=== PATIENT | male | born 1950 | race Caucasian/White ===

== ENCOUNTER 2017-03-10 18:32 | Inpatient (IN) | payer MEDICARE, OTHER, SELFPAY ==
[2017-03-10] VITALS (17 sets, daily range): BP systolic 141–169; BP diastolic 70–89; PULSE 60–61; RESP 14–22; TEMP 36.4–37.1; O2SAT 93–98; BMI 37.6; BMI 36.6
[2017-03-10 18:41] LABS: Bedside Glucose 262 mg/dL (70-110)
--- NOTE | 2017-03-10 18:54 | RAD_ITS ---
STUDY: X-RAY CHEST REASON FOR EXAM: Male, 66 years old. Stroke TECHNIQUE: Single frontal view COMPARISON: February 22, 2017 FINDINGS: Stable sternotomy wires and left-sided pacemaker. The lungs are clear and expanded. There is no demonstrated pleural abnormality. Cardiomegaly. Normal mediastinum and cata. Stable slight prominence of the central pulmonary arteries. Normal visualized aortic arch and descending thoracic aorta. Degenerative changes of the thoracic spine. Mild degenerative changes of the shoulders. There is no demonstrated abnormality of the visualized soft tissue structures of the upper abdomen. RAD/Chest 1 View IMPRESSION: Stable cardiomegaly and slight central pulmonary vascular prominence. Electronically Signed: Ever Raines DO at 19:58 EST Tel [phone], Service support ,
--- NOTE | 2017-03-10 18:54 | CT_ITS ---
STUDY: CT BRAIN WITHOUT CONTRAST REASON FOR EXAM: Male, 66 years old. CVA RADIATION DOSAGE (If Supplied By Facility): CTDIvol = ( 44.99 ) mGy, DLP = ( 846.73 ) mGycm TECHNIQUE: Transaxial CT imaging of the brain was performed without administration of intravenous contrast material. Individualized dose optimization techniques were used for this CT. COMPARISON: January 26, 2017. FINDINGS: Normal soft tissue structures. Normal calvarium. Normal size ventricles and extra-axial spaces for the patient's age. Stable white matter microangiopathic ischemic changes of the cerebral hemispheres. Normal basal ganglia and thalami. Normal brainstem. Normal cerebellum. There is no intracranial hemorrhage. There are no findings of an acute ischemic infarction. Normal visualized paranasal sinuses. CT/Brain/Head without Contrast IMPRESSION: No acute intracranial pathology of the brain. N.B. : The above information has been verbally conveyed by Ever Raines DO to Irlanda Pena, Referring Physician, on 03/10/2017 19:20:40 (ET). Electronically Signed: Ever Raines DO at 19:20 EST Tel [phone], Service support , N.B. : The above information has been verbally conveyed by Ever Raines DO to Irlanda Pena, Referring Physician, on 03/10/2017 19:20:40 (ET).
--- NOTE | 2017-03-10 18:54 | EKG12_ITS ---
Test Reason : CP Blood Pressure : / mmHG Vent. Rate : 060 BPM Atrial Rate : 060 BPM P-R Int : 234 ms QRS Dur : 120 ms QT Int : 462 ms P-R-T Axes : 000 -25 092 degrees QTc Int : 462 ms Atrial-paced rhythm with prolonged AV conduction Nonspecific ST and T wave abnormality Abnormal ECG Confirmed by DI MCCAIN ([id number]), food expeditor MODESTA FISHMAN ([id number] on 03/12/2017 11:35:52 AM Referred By: NANCY Confirmed By:DI MCCAIN
--- NOTE | 2017-03-10 18:56 | ED.VISSUMM ---
- ER Visit Summary Date of Service: 03/10/17 Chief Complaint: Altered mental status History of Present Illness: The patient is a 66 M who presents for altered mental status. states the patient got up from a nap at 5 PM and walked out of the room. She got up about 5 minutes later and found him laying on the floor, with altered mental status. EMS noted blood sugar was in the 200s. Patient has been unable to convey any complaints. Patient last was seen by the patient completely normal at noon, but he did get up from his nap at 5pm and she noted he was walking without any difficulty. history of stroke, coronary artery disease status post pacemaker placement and surgery, diabetes Physical Examination: Vital signs: afebrile, hemodynamically stable, no hypoxia on room air General: well nourished, well developed, obese, lying in bed not moving Skin: warm, dry, no rash, no pallor HEENT: normocephalic and atraumatic; PERRL at 2 mm, moist mucous membranes Cardiovascular: regular rate and rhythm without murmurs, midline surgical scar, no peripheral edema, 2+ pulses all distal extremities Respiratory: No increased work of breathing, lungs are clear to auscultation bilaterally, no rales, rhonchi or wheezing Abdominal: Abdomen is soft, nontender with normoactive bowel sounds, no guarding or rebound, no masses MSK: Neuro: Awake and alert, speaking in slurred speech that is not fluent or understandable, no obvious facial droop but patient unable to smile, patient barely able to blink eyes to command, patient able to give a weak thumbs up bilaterally, patient able to answer age by holding up his fingers and nodding and shaking his head based on our response, patient attempts to move eyes laterally to command but does not move from midline, one noted spontaneous movement of eyes to the right, unable to move legs or wiggle toes, cannot hold arms up to command but did raise arms wants without being told. Unable to evaluate coordination. NIH initially is 27. Test Results: Abnormal Lab Results 03/10/17 03/10/17 03/10/17 18:37 18:39 18:39 WBC 6.6 RBC 3.95 L Hgb 12.8 L Hct 38.8 L MCV 98.2 H MCH 32.4 H MCHC 33.0 RDW 14.0 RDW Differential 49.7 H Plt Count 134 L MPV 10.3 Immature Gran % (Auto) 0.200 Neut % (Auto) 73.1 H Lymph % (Auto) 20.0 [place] % (Auto) 4.7 Eos % (Auto) 1.8 Baso % (Auto) 0.2 Absolute Neuts (auto) 4.8 Absolute Lymphs (auto) 1.31 Total Counted Not Reportable PT 13.4 INR 1.1 APTT 36.4 H Sodium Potassium Chloride Carbon Dioxide Anion Gap BUN Creatinine Estim Creat Clear Calc Est GFR (MDRD) Af Amer Est GFR (MDRD) Non-Af BUN/Creatinine Ratio Glucose Hemoglobin A1c Calcium Magnesium Total Bilirubin Direct Bilirubin AST ALT Alkaline Phosphatase Troponin I Total Protein Albumin Globulin TSH Urine Opiates Screen Urine Methadone Screen Ur Barbiturates Screen Ur Phencyclidine Scrn Ur Amphetamines Screen U Methamphetamin-MDMA U Benzodiazepines Scrn Urine Cocaine Screen U Cannabinoids Screen Ur Drug Screen Comment Ethyl Alcohol POC Glucose 262 H 03/10/17 03/10/17 03/10/17 18:39 18:39 18:39 WBC RBC Hgb Hct MCV MCH MCHC RDW RDW Differential Plt Count MPV Immature Gran % (Auto) Neut % (Auto) Lymph % (Auto) [place] % (Auto) Eos % (Auto) Baso % (Auto) Absolute Neuts (auto) Absolute Lymphs (auto) Total Counted PT INR APTT Sodium 141 Potassium 3.9 Chloride 103 Carbon Dioxide 31.0 Anion Gap 7 BUN 16 Creatinine 1.00 Estim Creat Clear Calc 75.03 Est GFR (MDRD) Af Amer 97 Est GFR (MDRD) Non-Af 80 BUN/Creatinine Ratio 16.1 Glucose 251 H Hemoglobin A1c Calcium 8.1 L Magnesium 1.7 Total Bilirubin 0.40 Direct Bilirubin 0.14 AST 22 ALT 40 Alkaline Phosphatase 115 Troponin I < 0.02 Total Protein 7.4 Albumin 3.7 Globulin 3.7 TSH 2.10 Urine Opiates Screen Urine Methadone Screen Ur Barbiturates Screen Ur Phencyclidine Scrn Ur Amphetamines Screen U Methamphetamin-MDMA U Benzodiazepines Scrn Urine Cocaine Screen U Cannabinoids Screen Ur Drug Screen Comment Ethyl Alcohol POC Glucose 03/10/17 03/10/17 03/10/17 18:39 19:39 22:00 WBC RBC Hgb Hct MCV MCH MCHC RDW RDW Differential Plt Count MPV Immature Gran % (Auto) Neut % (Auto) Lymph % (Auto) [place] % (Auto) Eos % (Auto) Baso % (Auto) Absolute Neuts (auto) Absolute Lymphs (auto) Total Counted PT INR APTT Sodium Potassium Chloride Carbon Dioxide Anion Gap BUN Creatinine Estim Creat Clear Calc Est GFR (MDRD) Af Amer Est GFR (MDRD) Non-Af BUN/Creatinine Ratio Glucose Hemoglobin A1c 7.5 H Calcium Magnesium Total Bilirubin Direct Bilirubin AST ALT Alkaline Phosphatase Troponin I Total Protein Albumin Globulin TSH Urine Opiates Screen NEGATIVE Urine Methadone Screen NEGATIVE Ur Barbiturates Screen NEGATIVE Ur Phencyclidine Scrn NEGATIVE Ur Amphetamines Screen NEGATIVE U Methamphetamin-MDMA NEGATIVE U Benzodiazepines Scrn NEGATIVE Urine Cocaine Screen NEGATIVE U Cannabinoids Screen NEGATIVE Ur Drug Screen Comment Ethyl Alcohol < 3.0 POC Glucose Emergency Department Course and Treatment: Patient presents with concern for possible stroke. Stroke alert was called. Patient had profound deficits on initial evaluation with an NIH of at least 27, with differential including pontine stroke, metabolic encephalopathy or encephalopathy of other origin, seizure. Head CT showed no intracranial hemorrhage, and a CTA of the head and neck showed no abnormalities of circulation. Patient was given rectal aspirin. EKG showed paced rhythm with no ischemic changes. Chest x-ray showed no infiltrates. Labs were unremarkable. Troponin negative. Tox screen and alcohol negative. [id number] glucose on arrival was 262. Patient was discussed with Dr. Holt, who agreed patient is likely not a good candidate for TPA, as he has profound deficits and it is on sure if this is even a stroke. Patient did have return of function of his arms, and while he would not use them on command, he was witnessed using them to pull himself up in bed or to gesture. Patient began being more talkative, although he continued to have the slurred on intelligible speech. He would use his hands to gesture. He began complaining of severe chest pain. At this time he was making good eye contact and gesturing to his chest to try to explain the pain. He shook his head no when asked if it was consistent with his prior heart attacks. Repeat EKG showed no changes in ST or T waves. Patient will be admitted for further neurologic workup, with concern for stroke. He will also require further chest pain workup given his cardiac history. He was discussed with Dr. Brown and admitted. Treatment Plan: [] Disposition: [] Impression: 1, neurologic deficits 2. Concern for stroke 3. Chest pain This note was generated with [employer] dictation software. It may contain incorrect words, spelling, and punctuation that were not noted in review of the chart prior to signing ED Disposition - Plan for ED Patient: Disposition: Acute Care Hospital [facility] Chief Complaint: Neuro S/Sx
[2017-03-10 19:08] LABS: Absolute Lymphocyte Count 1.31 X10^3/ul (0.83-4.51); Absolute Neutrophil Count 4.8 X10^3/uL (2.0-7.7); Basophil# 0.01 X10^3/uL; Basophil% 0.2 % (0-1); Eosinophil# 0.12 X10^3/uL; Eosinophils% 1.8 % (0-5); Hematocrit 38.8 % (40-54); Hemoglobin 12.8 g/dl (13.0-16.5); Lymphocyte # 1.31 X10^3/ul (4.0); Mean Corpuscular Hgb 32.4 pg (27.0-32.0); Mean Corpuscular Volume 98.2 fL (80-94); Mean Platelet Vol. 10.3 fl (6.2-12.0); Monocyte# 0.31 X10^3/uL; Monocyte% 4.7 % (0-10); Neutrophil % 73.1 % (47-70); POSITIVE COUNT NO; POSITIVE DIFFERENTIAL NO; POSITIVE MORPHOLOGY NO; Platelet Count 134 K/mm3 (150-450); RBC Distribution Width SD 49.7 fl (35.1-43.9); Red Blood Count 3.95 M/mm3 (4.6-6.2); White Blood Count 6.6 K/mm3 (4.4-11.0)
[2017-03-10 19:11] LABS: International Normalized Ratio 1.1; Prothrombin Time (Protime)PT. 13.4 SECONDS (11.7-14.9)
[2017-03-10 19:12] LABS: Partial Thromboplast Time 36.4 Seconds (24.1-36.2)
[2017-03-10 19:21] LABS: Anion Gap 7 (5-15); BUN 16 mg/dL (7-18); BUN/Creat Ratio 16.1 RATIO (10-20); Calcium,Total 8.1 mg/dL (8.5-10.1); Chloride 103 mmol/L (98-107); EST Glomerular Filtration Rate 80 mL/min (>60); Est Glom Filt Rate - Afr Amer 97 mL/min (>60); Estimated Creatinine Clearance 75.03 ml/min; Glucose 251 mg/dL (70-110); Potassium 3.9 mmol/L (3.5-5.1); Sodium Level 141 mmol/L (136-145)
--- NOTE | 2017-03-10 19:41 | CT_ITS ---
STUDY: CTA OF THE BRAIN REASON FOR EXAM: Male, 66 years old. CVA RADIATION DOSAGE (If Supplied By Facility): CTDIvol = ( 21.6 ) mGy, DLP = ( 894.24 ) mGycm TECHNIQUE: CT angiography was performed with a multi-detector CT scanner. Data acquisition was obtained from the skull base through the vertex following intravenous administration of 100 ml of Isovue-300. MIP images were reconstructed from the axial data set. Post-processing of the angiographic images was performed, with multiplanar reformation and 3D reconstruction. Individualized dose optimization techniques were used for this CT. COMPARISON: December 25, 2016. FINDINGS: Normal bilateral petrous carotid arteries. Mildly calcified right cavernous carotid artery with a normal supraclinoid bifurcation. Mildly calcified left cavernous carotid artery with a normal supraclinoid bifurcation. Normal right A1 segments of the anterior cerebral artery. Normal left A1 segments of the anterior cerebral artery. Normal intact anterior communicating artery (ACOM). Normal bilateral A2 segments of the anterior cerebral arteries. Normal right M1 and M2 segments of the middle cerebral arteries, with a normal M1 bifurcation. Normal left M1 and M2 segments of the middle cerebral arteries, with a normal M1 bifurcation. Nonvisualization of the posterior communicating arteries (PCOM). Normal bilateral vertebral arteries. Normal basilar artery with a normal basilar bifurcation. The visualized bilateral superior cerebellar (SCA) arteries are normal. Normal bilateral P1, P2 and visualized P3 segments of the posterior cerebral arteries. There is no demonstrated aneurysm of the [place]. There is no demonstrated abnormality of the visualized brain. CT/CTA Head W/WO Contrast IMPRESSION: Normal [place] without a demonstrated aneurysm or hemodynamically significant stenosis. Electronically Signed: Ever Raines DO at 20:55 EST Tel [phone], Service support ,
--- NOTE | 2017-03-10 19:41 | CT_ITS ---
STUDY: CTA NECK WITH CONTRAST REASON FOR EXAM: Male, 66 years old. CVA RADIATION DOSAGE (If Supplied By Facility): CTDIvol = ( 21.6 ) mGy, DLP = ( 894.24 ) mGycm TECHNIQUE: CT angiography with multi-detector data acquisition was performed from the aortic arch to the skull base following intravenous administration of 100 ml of Isovue 370 contrast. MIP images were reconstructed from the axial data set. Post-processing of the angiographic images was performed, with multiplanar reformation and 3D reconstruction. Individualized dose optimization techniques were used for this CT. COMPARISON: December 25, 2016. FINDINGS: AORTIC ARCH: Normal visualized aortic arch. Mildly calcified origins of the brachiocephalic, left common carotid, and left subclavian arteries. RIGHT CAROTID ARTERIES: Normal right common carotid artery (CCA). Minimal calcification at the right common carotid bulb. Normal origin of the right internal carotid (ICA) artery without a hemodynamically significant stenosis. Normal visualized cervical portion of the right internal carotid artery. Normal origin of the right external carotid artery (ECA). LEFT CAROTID ARTERIES: Normal left common carotid artery (CCA). Minimal calcifications at the left common carotid bulb. Normal origin of the left internal carotid (ICA) artery without a hemodynamically significant stenosis. Normal visualized cervical portion of the left internal carotid artery. Normal origin of the left external carotid artery (ECA). VERTEBRAL ARTERIES: Normal bilateral vertebral arteries. CT/CTA Neck W/WO Contrast IMPRESSION: No hemodynamically significant stenosis of the bilateral cervical carotid and vertebral arteries. Electronically Signed: Ever Raines DO at 20:58 EST Tel [phone], Service support ,
[2017-03-10] MEDS: 0.9% Normal Saline 1,000 ML 100 ML IV (20:09)
--- NOTE | 2017-03-10 20:22 | ED.RN ---
[facility] NEFTALY ARE HAVING TRANSFER COORIDANTOR CALL BACK
--- NOTE | 2017-03-10 20:49 | ED.RN ---
[facility] CALLED BACK AND HAVE NO TELE BEDS IMMEDIATLY AVAILABLE OK TO ADMIT HERE
[2017-03-10] MEDS: Aspirin 300 MG Suppository RECTAL (21:20)
[2017-03-10 21:55] LABS: AST(SGOT) 22 U/L (15-37); Alanine Aminotransfer ALT/SGPT 40 U/L (12-78); Albumin, Serum 3.7 g/dL (3.4-5.0); Alkaline Phosphatase 115 U/L (45-117); Bilirubin, Direct 0.14 mg/dL (0.00-0.30); Globulin 3.7 g/dL (2.2-4.2); Protein, Total 7.4 g/dL (6.4-8.2)
--- NOTE | 2017-03-10 21:56 | ED.RN ---
STILL NEEDS VERIFIED NO POA OR LW
--- NOTE | 2017-03-10 22:10 | EKG12_ITS ---
Test Reason : REPEAT Blood Pressure : / mmHG Vent. Rate : 062 BPM Atrial Rate : 062 BPM P-R Int : 190 ms QRS Dur : 118 ms QT Int : 428 ms P-R-T Axes : 063 -11 084 degrees QTc Int : 434 ms Normal sinus rhythm ST & T wave abnormality, consider anterior ischemia Abnormal ECG Confirmed by DI MCCAIN ([id number]), sound editor MODESTA FISHMAN ([id number] on 03/12/2017 11:37:46 AM Referred By: [place] Confirmed By:DI MCCAIN
[2017-03-10 22:13] LABS: Alcohol, Blood (Medical)-Serum < 3.0 mg/dL
--- NOTE | 2017-03-10 22:18 | PCM.HP.STD ---
Problem List (1) Hyperlipidemia Status: Chronic Qualifiers: Hyperlipidemia type: unspecified Qualified Code(s): E78.5 - Hyperlipidemia, unspecified (2) Hypertension Status: Chronic Qualifiers: Hypertension type: essential hypertension Qualified Code(s): I10 - Essential (primary) hypertension (3) Obesity Status: Chronic Qualifiers: Obesity type: due to excess calories Obesity classification: adult class 2 (BMI 35 - 39.9) Body mass index: BMI 36.0-36.9 (4) Pacemaker Status: Chronic Comment: 2001 (5) Weakness of limb Status: Chronic (6) Chronic respiratory failure Status: Chronic Qualifiers: Respiratory failure complication: hypoxia Qualified Code(s): J96.11 - Chronic respiratory failure with hypoxia Comment: baseline 3L continuously (7) CAD (coronary artery disease) Status: Chronic Qualifiers: [place] vs. 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 use: with skilled nursing use Qualified Code(s): E11.8 - Type 2 diabetes mellitus with unspecified complications; Z79.4 - long term care phlebotomist (current) use of insulin (9) History of smoking Status: Chronic (10) Obstructive sleep apnea Status: Chronic (11) Seizure Status: Chronic Qualifiers: Convulsion type: unspecified Qualified Code(s): R56.9 - Unspecified convulsions (12) S/P CABG (coronary artery bypass graft) Status: Chronic (13) Acute ischemic stroke Status: Acute (14) CVA (cerebral vascular accident) Status: Chronic Qualifiers: CVA mechanism: unspecified Qualified Code(s): I63.9 - Cerebral infarction, unspecified History of Present Illness Date of Admission: 03/10/17 Chief Complaint: Weakness, slurred speech. The patient is a 66 y/o M w/ PMHx: HTN, HLD, Obesity, CAD s/p CABG, s/p Pacemaker, Diabetes mellitus type II, Hx CVA prior w/ chronic L sided weakness, paresthesias, Chronic Hypoxic Respiratory Failure suspected secondary to Chronic COPD (3L NC), EKATERINA on CPAP q HS, ? Seizure disorder who presents to the [facility] ED on 03/10/17 w/ history of onset after 5 PM weakness, debility, minimally responsive, diffuse weakness and garbled speech noted to have been found per his spouse hunched over in a chair with unclear specific onset time but noted to have been normal earlier in the day in addition to complaints of diffuse chest discomfort without associated nausea, diaphoresis or dyspnea which has been chronic and ongoing with recent evaluation and admission including cardiac catheterization. In the ED work-up included T 98.2, HR 60, BP 156/86, RR 20, 93% on 2L NC, CBC w/ WBC 6.6, Hgb 12.8, Plts 134 without marked shift, not marked appearing coags, unremarkable CMP aside glucose 151, trop <0.02, UDS negative, EtOH level unremarkable, EKG paced without acute evidence of ischemia, CT brain without acute findings, CTA head and neck without acute findings. In the ED patient administered ASA OK, morphine, NS. Past Medical History Past Medical History (Chronic Problems): Chronic Problems Hyperlipidemia (Chronic) Hypertension (Chronic) Obesity (Chronic) Pacemaker (Chronic) 2002 Weakness of limb (Chronic) Chronic respiratory failure (Chronic) baseline 3L continuously CAD (coronary artery disease) (Chronic) DM type 2 (diabetes mellitus, type 2) (Chronic) History of smoking (Chronic) Obstructive sleep apnea (Chronic) Seizure (Chronic) left sided tingling left body (Chronic) S/P CABG (coronary artery bypass graft) (Chronic) S/P PTCA (percutaneous transluminal coronary angioplasty) (Chronic) CVA (cerebral vascular accident) (Chronic) Allergies ezetimibe Allergy (Verified 02/22/17 20:19) Unknown Fish Containing Products Allergy (Verified 02/22/17 20:19) Unknown glyburide Allergy (Verified 02/22/17 20:19) Unknown lisinopril Allergy (Verified 02/22/17 20:19) Unknown metoprolol Allergy (Verified 02/22/17 20:19) Unknown simvastatin Allergy (Verified 02/22/17 20:19) Unknown Home Medications: Ambulatory Orders Medication Instructions Recorded Atenolol [Tenormin (beta theron)] 100 mg PO DAILY 08/09/16 Atorvastatin Calcium [Lipitor] 80 mg PO QHS 08/09/16 Cholecalciferol (Vitamin D3) 3,000 unit PO DAILY 08/09/16 [D3-2000] Finasteride [Proscar] 5 mg PO DAILY 08/09/16 Furosemide [Lasix] 20 mg PO DAILY 08/09/16 Insulin U-500 [Humulin R U-500 125 units SC LUNCH 08/09/16 ([facility])] Insulin U-500 [Humulin R U-500 140 unit SC DINNER 08/09/16 ([facility])] Insulin U-500 [Humulin R U-500 175 units SC BREAKFAST 08/09/16 ([facility])] Multivitamin with Minerals/Lut 1 each PO DAILY 08/09/16 [Pub Multivitamin 50 Plus Tab] Nitroglycerin [Nitrostat] 0.4 mg SUBLINGUAL Q5M PRN 08/09/16 Pantoprazole Sodium [Protonix] 40 mg PO BID 08/09/16 Tamsulosin HCl [Flomax] 0.8 mg PO QHS 08/09/16 Clopidogrel Bisulfate [Clopidogrel] 75 mg PO DAILY 12/25/16 Isosorbide Dinitrate 20 mg PO TID 01/26/17 Alprostadil [Caverject] 20 mcg IC X1 PRN 02/22/17 Dextrose [Glucose] 4 gm PO X1 PRN 02/22/17 Ketoconazole 1 applicatio TOPICAL DAILY 02/22/17 Menthol [Icy Hot] 1 applicatio TP TID PRN 02/22/17 Aspirin E.C. [Ecotrin] 81 mg PO DAILY@0800 tablet 02/25/17 Ranolazine [Ranexa] 1,000 mg PO BID 03/10/17 Surgical History: angioplasty, coronary bypass surgery, pacemaker implantation, - - cabg,cholecystectemy, hernia, left knee, 4 stents Psychiatric History: No pertinent psych hx Lives: Spouse/ Significant Other Smoking Status: Former smoker - Quit approximately 10 years prior with a 1.5-2 pack per day usage since teenager. Tobacco Use: Non-smoker Alcohol: None Drugs: None - *Family History Maternal History Items: Heart Disease Paternal History Items: Unknown Review of Systems Constitutional: Reports: Malaise, Weakness, Fatigue. Denies: Chills, Fever, Weight Change HEENT: Denies: Head Aches, Sinus Congestion, Sinus Drainage Cardiovascular: Reports: Chest Pain. Denies: Palpitations Respiratory: Denies: Cough, Shortness of breath at rest, Sputum production Gastrointestinal: Denies: Abdominal Pain, Nausea, Vomiting Genitourinary: Denies: Dysuria Musculoskeletal: Reports: Back Pain. Denies: Joint Pain, Joint Tenderness Skin: Denies: Rash, Wounds Neurological: Reports: Slurred speech, Confusion, Focal weakness, Numbness, Tingling Psychiatric: Denies: Anxiety, Depression, Homicidal Ideations, Suicidal Ideations Hematologic/ Lymphatic: Denies: Easy Bruising, Easy Bleeding VTE Information - Inpt Only VTE Present on Admission: No VTE Mechan Device Prophylaxis: SCD's VTE Pharm Prophylaxis ordered?: Yes Subjective: Seated upright in the ED bed, garbled speech ongoing, severe weakness diffusely. Objective: Physical Examination: General: awake, alert, can answer some questions, difficult to assess orientation but currently appears oriented to place, year and cooperative, seated upright in the ED bed in no apparent distress. Skin: normal color, turgor, no icterus, cyanosis. HEENT: AT/NC, EOMI, PERRLA, dry MM, no carotid bruits or JVD noted. Lungs: Diminished BS BL, > bases, mild effort, no rales, ronchi or wheezing. Heart: Regular rate and rhythm (paced); no gallop, rub audible. Abdomen: soft, obese, NTTP, ND, normal BS, no HSM. Extremities: no cyanosis, clubbing, or edema. Neurological: patient awake, alert, oriented as noted; cognitive function not baseline intact; pupils equally reactive to light and accomodation; difficult to assess CN given current presentation but appear intact, chronic L sided hemiplegia and paresthesias, R sided upper and lower extremity 2-3/5 weakness notable, R babinski equivocal, L upgoing, notable garbled speech, strength accordingly severely globally decreased. Psychiatric: affect appears normal, no acute evidence of depressive or anxiety feelings. - Physical Exam Vital Signs Temp Pulse Resp BP Pulse Ox 98.3 F 60 20 H 166/84 H 96 03/10/17 22:00 03/10/17 22:00 03/10/17 22:00 03/10/17 22:00 03/10/17 22:00 Oxygen Flow Rate 2 Oxygen Delivery Method Nasal Cannula Weight: 262 lb 5.601 oz Body Mass Index (BMI) 37.6 Finger Stick Blood Glucose 262 Laboratory Tests Past 24 Hrs 03/10/17 03/10/17 03/10/17 18:39 18:39 18:39 WBC 6.6 RBC 3.95 L Hgb 12.8 L Hct 38.8 L MCV 98.2 H MCH 32.4 H MCHC 33.0 RDW 14.0 RDW Differential 49.7 H Plt Count 134 L MPV 10.3 Immature Gran % (Auto) 0.200 Neut % (Auto) 73.1 H Lymph % (Auto) 20.0 [place] % (Auto) 4.7 Eos % (Auto) 1.8 Baso % (Auto) 0.2 Absolute Neuts (auto) 4.8 Absolute Lymphs (auto) 1.31 Total Counted Not Reportable PT 13.4 INR 1.1 APTT 36.4 H Sodium 141 Potassium 3.9 Chloride 103 Carbon Dioxide 31.0 Anion Gap 7 BUN 16 Creatinine 1.00 Estim Creat Clear Calc 75.03 Est GFR (MDRD) Af Amer 97 Est GFR (MDRD) Non-Af 80 BUN/Creatinine Ratio 16.1 Glucose 251 H Calcium 8.1 L Total Bilirubin Direct Bilirubin AST ALT Alkaline Phosphatase Troponin I < 0.02 Total Protein Albumin Globulin Urine Opiates Screen Urine Methadone Screen Ur Barbiturates Screen Ur Phencyclidine Scrn Ur Amphetamines Screen U Methamphetamin-MDMA U Benzodiazepines Scrn Urine Cocaine Screen U Cannabinoids Screen Ur Drug Screen Comment Ethyl Alcohol 03/10/17 03/10/17 03/10/17 18:39 19:39 22:00 WBC RBC Hgb Hct MCV MCH MCHC RDW RDW Differential Plt Count MPV Immature Gran % (Auto) Neut % (Auto) Lymph % (Auto) [place] % (Auto) Eos % (Auto) Baso % (Auto) Absolute Neuts (auto) Absolute Lymphs (auto) Total Counted PT INR APTT Sodium Potassium Chloride Carbon Dioxide Anion Gap BUN Creatinine Estim Creat Clear Calc Est GFR (MDRD) Af Amer Est GFR (MDRD) Non-Af BUN/Creatinine Ratio Glucose Calcium Total Bilirubin 0.40 Direct Bilirubin 0.14 AST 22 ALT 40 Alkaline Phosphatase 115 Troponin I Total Protein 7.4 Albumin 3.7 Globulin 3.7 Urine Opiates Screen Pending Urine Methadone Screen Pending Ur Barbiturates Screen Pending Ur Phencyclidine Scrn Pending Ur Amphetamines Screen Pending U Methamphetamin-MDMA Pending U Benzodiazepines Scrn Pending Urine Cocaine Screen Pending U Cannabinoids Screen Pending Ur Drug Screen Comment Ethyl Alcohol < 3.0 POC Glucose 03/10/17 18:37 POC Glucose 262 H Assessment/Plan The patient is a 66 y/o M w/ PMHx: HTN, HLD, Obesity, CAD s/p CABG, s/p Pacemaker, Diabetes mellitus type II, Hx CVA prior w/ chronic L sided weakness, paresthesias, Chronic Hypoxic Respiratory Failure suspected secondary to Chronic COPD (3L NC), EKATERINA on CPAP q HS, ? Seizure disorder who presents to the [facility] ED on 03/10/17 w/ history of onset after 5 PM weakness, debility, minimally responsive, diffuse weakness and garbled speech noted to have been found per his spouse hunched over in a chair with unclear specific onset time but noted to have been normal earlier in the day in addition to complaints of diffuse chest discomfort without associated nausea, diaphoresis or dyspnea which has been chronic and ongoing with recent evaluation and admission including cardiac catheterization. (1) Focal Weakness, R sided, Garbled speech w/ Hx Prior CVA w/ Chronic L hemiplegia and paresthesias concerning for CVA: In the ED work-up included T 98.2, HR 60, BP 156/86, RR 20, 93% on 2L NC, CBC w/ WBC 6.6, Hgb 12.8, Plts 134 without marked shift, not marked appearing coags, unremarkable CMP aside glucose 151, trop <0.02, UDS negative, EtOH level unremarkable, EKG paced without acute evidence of ischemia, CT brain without acute findings, CTA head and neck without acute findings. Will admit to PCU, unable to obtain MRI secondary to pacemaker status, CTA head and neck as noted already obtained, will obtain ECHO, PT/OT/Speech/Nutrition evaluation per protocol. Will consult Neurology for evaluation. Will allow permissive HTN, maintain on OK ASA given NPO status, holding statin w/ AM FLP. TSH, mag pending. Fall precautions. (2) Chest pain w/ CAD: s/p CABG and recent 02/24/17 Cardiac catherization w/ noted elevated LV end-diastolic pressure, normal LV size, wall motion and systolic function, EF 55%, redding multivessel coronary artery disease, MASON to LAD previously reported is atretic and nonfunctional, SVG to diagonal patent, SVG to OM patent, SVG to RCA patent with recommendation for continued medical therapy and risk factor modification. Will maintain while NPO on OK ASA, holding statin and BB. FLP in AM. Mag pending. Chest pain he notes is chronic, given recent catheterization will not pursue further aggressive evaluation, but will repeat EKG in AM and obtain serial cardiac enzymes. Mag pending. FLP in AM. (3) Chronic COPD: ATC duonebs, PRN albuterol, HOB, IS parameters. (4) Diabetes mellitus type II: Hold oral home regimen, continue home insulin regimen long-acting, hold scheduled short-acting, accu checks w/ ISS. HgBA1c pending. Nutrition consulted. (5) Obesity: Weight loss and lifestyle changes encouraged, nutrition consulted. (6) Hyperlipidemia: Holding statin given n.p.o. status, FLP in a.m. (7) Hypertension: Permissive. (8) GERD: Famotidine IV. (9) EKATERINA: CPAP q HS. (10) DVT Prophylaxis: SCDs, lovenox. (11) CODE status: Discussed CODE status at length including difference between FULL code, DNR-CCA and DNR-CC status. Following discussions about the differences in these status, requested FULL CODE status. Advanced Care Planning Face to Face Time: 16 minutes. Code Visit Inpatient E&M: 92664 Init Hosp L3 Procedures: 41595 Advncd Care Plan 30 Min
[2017-03-10 22:21] LABS: Amphetamine Urine VISTA NEGATIVE (<1000 ng/mL); Barbiturate Urine VISTA NEGATIVE (< 200 ng/mL); Benzodiazepine Urine VISTA NEGATIVE (< 200 ng/mL); Cocaine Urine VISTA NEGATIVE (< 300 ng/mL); Ecstacy Urine VISTA NEGATIVE (< 500 ng/mL); Methadone Urine VISTA NEGATIVE (< 300 ng/mL); PCP Urine VISTA NEGATIVE (< 25 ng/mL); THC Urine VISTA NEGATIVE (< 50 ng/mL); Vista UDS pH Range 6
[2017-03-11] VITALS (21 sets, daily range): BP systolic 137–166; BP diastolic 62–80; PULSE 58–89; RESP 16–20; TEMP 36.3–36.9; O2SAT 95–99; BMI 36.6
--- NOTE | 2017-03-11 | CPS ---
pt wears CPAP at home HS but did not bring it with him. Pt does not want to wear ours tonight and wants to bring in his tomorrow if possible.
[2017-03-11 00:01] LABS: Magnesium 1.7 mg/dL (1.6-2.6)
[2017-03-11 00:07] LABS: Hemoglobin A1c 7.5 % (4.2-6.3)
[2017-03-11] MEDS: 0.9% NaCl Peripheral Flush Adult/Peds IV ×6 (02:41→22:10)
[2017-03-11 04:34] LABS: Hematocrit 37.8 % (40-54); Hemoglobin 12.4 g/dl (13.0-16.5); Mean Corp Hgb Conc 32.8 g/gl (32-36); Mean Corpuscular Hgb 32.3 pg (27.0-32.0); Mean Corpuscular Volume 98.4 fL (80-94); Mean Platelet Vol. 10.2 fl (6.2-12.0); Platelet Count 114 K/mm3 (150-450); RBC Distribution Width CV 14.2 % (11.6-14.6); RBC Distribution Width SD 50.3 fl (35.1-43.9); Red Blood Count 3.84 M/mm3 (4.6-6.2); White Blood Count 5.6 K/mm3 (4.4-11.0)
[2017-03-11 04:35] LABS: Scan Indicated on CBC? Y/N NO
[2017-03-11 04:56] LABS: Anion Gap 7 (5-15); BUN 16 mg/dL (7-18); BUN/Creat Ratio 17.4 RATIO (10-20); Calcium,Total 7.9 mg/dL (8.5-10.1); Chloride 103 mmol/L (98-107); Cholesterol 92 mg/dL (200); Creatinine, Serum 0.92 mg/dL (0.70-1.30); EST Glomerular Filtration Rate 87 mL/min (>60); Est Glom Filt Rate - Afr Amer 106 mL/min (>60); Estimated Creatinine Clearance 81.55 ml/min; Glucose 177 mg/dL (70-110); High Density Lipoprotein 44 mg/dL; Potassium 3.9 mmol/L (3.5-5.1); Sodium Level 142 mmol/L (136-145); Triglycerides 125 mg/dL; Very Low Density Lipoprotein 25 mg/dL (5-40)
[2017-03-11 05:46] LABS: Bedside Glucose 177 mg/dL (70-110)
--- NOTE | 2017-03-11 05:55 | EKG12_ITS ---
Test Reason : AM Blood Pressure : / mmHG Vent. Rate : 060 BPM Atrial Rate : 060 BPM P-R Int : 104 ms QRS Dur : 122 ms QT Int : 468 ms P-R-T Axes : 000 -06 084 degrees QTc Int : 468 ms Sinus rhythm with short ID Nonspecific ST and T wave abnormality Abnormal ECG When compared with ECG of 10-MAR-2017 18:41, MANUAL COMPARISON REQUIRED, DATA IS UNCONFIRMED Confirmed by PADILLA GUALLPA, CALI ([id number]), videotape editor MODESTA FISHMAN ([id number]) on 03/24/2017 8:52:17 AM Referred By: HARVEY Confirmed By:CALI CAUSEY MD
[2017-03-11] MEDS: Ipratropium/Albuterol Sulfate 3 ML AMPUL.NEB INHALATION ×3 (07:42→19:55)
[2017-03-11] MEDS: Enoxaparin 40 MG/0.4 ML Syringe SC (09:06)
--- NOTE | 2017-03-11 10:21 | CASEMGMT ---
Chart reviewed at this time. Pt was also recently admitted 02/23-02/25. See CM assessment completed by Kd BERRY CM on 02/23, there are no changes at this time. [facility] was notified by ED and per note, [facility] had no beds for pt at that time and stated was ok for pt to be admitted here. CM to follow for any further discharge planning/needs. Obdulia BERRY CM
--- NOTE | 2017-03-11 11:54 | PCM.CONS.GEN ---
Reason for Consult Date of Consultation: 03/11/17 Reason for Consultation: aphasia and left sided weakness History of Present Illness: The patient is a 66 year old right handed white male who is admitted for a recurrent stereotyped spell of which he has had greater than 50 over the past 16 yrs, with negative extensive workup including 72hr eeg. now has pacer. spells last from one hour to 4 days, no apparent trigger although he has experienced severe stress recently due to the of a pet. recently hospitalized two weeks ago for a similar event. per h&p:The patient is a 66 y/o M w/ PMHx: HTN, HLD, Obesity, CAD s/p CABG, s/p Pacemaker, Diabetes mellitus type II, Hx CVA prior w/ chronic L sided weakness, paresthesias, Chronic Hypoxic Respiratory Failure suspected secondary to Chronic COPD (3L NC), EKATERINA on CPAP q HS, ? Seizure disorder who presents to the [facility] ED on 03/10/17 w/ history of onset after 5 PM weakness, debility, minimally responsive, diffuse weakness and garbled speech noted to have been found per his spouse hunched over in a chair with unclear specific onset time but noted to have been normal earlier in the day in addition to complaints of diffuse chest discomfort without associated nausea, diaphoresis or dyspnea which has been chronic and ongoing with recent evaluation and admission including cardiac catheterization. In the ED work-up included T 98.2, HR 60, BP 156/86, RR 20, 93% on 2L NC, CBC w/ WBC 6.6, Hgb 12.8, Plts 134 without marked shift, not marked appearing coags, unremarkable CMP aside glucose 151, trop <0.02, UDS negative, EtOH level unremarkable, EKG paced without acute evidence of ischemia, CT brain without acute findings, CTA head and neck without acute findings. In the ED patient administered ASA [place], morphine, NS. Past Medical History Past Medical History (Chronic Problems): Chronic Problems Hyperlipidemia (Chronic) Hypertension (Chronic) Obesity (Chronic) Pacemaker (Chronic) 2001 Weakness of limb (Chronic) Chronic respiratory failure (Chronic) baseline 3L continuously CAD (coronary artery disease) (Chronic) DM type 2 (diabetes mellitus, type 2) (Chronic) History of smoking (Chronic) Obstructive sleep apnea (Chronic) Seizure (Chronic) left sided tingling left body (Chronic) S/P CABG (coronary artery bypass graft) (Chronic) S/P PTCA (percutaneous transluminal coronary angioplasty) (Chronic) CVA (cerebral vascular accident) (Chronic) Allergies ezetimibe Allergy (Verified 02/22/17 20:19) Unknown Fish Containing Products Allergy (Verified 02/22/17 20:19) Unknown glyburide Allergy (Verified 02/22/17 20:19) Unknown lisinopril Allergy (Verified 02/22/17 20:19) Unknown metoprolol Allergy (Verified 02/22/17 20:19) Unknown simvastatin Allergy (Verified 02/22/17 20:19) Unknown Home Medications: Ambulatory Orders Medication Instructions Recorded Atenolol [Tenormin (beta theron)] 100 mg PO DAILY 08/09/16 Atorvastatin Calcium [Lipitor] 80 mg PO QHS 08/09/16 Cholecalciferol (Vitamin D3) 3,000 unit PO DAILY 08/09/16 [D3-2000] Finasteride [Proscar] 5 mg PO DAILY 08/09/16 Furosemide [Lasix] 20 mg PO DAILY 08/09/16 Insulin U-500 [Humulin R U-500 125 units SC LUNCH 08/09/16 ([facility])] Insulin U-500 [Humulin R U-500 140 unit SC DINNER 08/09/16 ([facility])] Insulin U-500 [Humulin R U-500 175 units SC BREAKFAST 08/09/16 ([facility])] Multivitamin with Minerals/Lut 1 each PO DAILY 08/09/16 [Pub Multivitamin 50 Plus Tab] Nitroglycerin [Nitrostat] 0.4 mg SUBLINGUAL Q5M PRN 08/09/16 Pantoprazole Sodium [Protonix] 40 mg PO BID 08/09/16 Tamsulosin HCl [Flomax] 0.8 mg PO QHS 08/09/16 Clopidogrel Bisulfate [Clopidogrel] 75 mg PO DAILY 12/25/16 Isosorbide Dinitrate 20 mg PO TID 01/26/17 Alprostadil [Caverject] 20 mcg IC X1 PRN 02/22/17 Dextrose [Glucose] 4 gm PO X1 PRN 02/22/17 Ketoconazole 1 applicatio TOPICAL DAILY 02/22/17 Menthol [Icy Hot] 1 applicatio TP TID PRN 02/22/17 Aspirin E.C. [Ecotrin] 81 mg PO DAILY@0800 tablet 02/25/17 Ranolazine [Ranexa] 1,000 mg PO BID 03/10/17 Surgical History: angioplasty, coronary bypass surgery, pacemaker implantation, - - cabg,cholecystectemy, hernia, left knee, 4 stents Psychiatric History: No pertinent psych hx Lives: Spouse/ Significant Other Smoking Status: Former smoker Tobacco Use: Non-smoker Alcohol: None Drugs: None - *Family History Maternal History Items: Heart Disease Paternal History Items: Unknown Review of Systems Constitutional: Denies: Chills, Fever, Weight Change HEENT: Denies: Head Aches, Sinus Congestion, Sinus Drainage Cardiovascular: Denies: Chest Pain, Palpitations Respiratory: Denies: Cough, Shortness of breath at rest, Sputum production Gastrointestinal: Denies: Abdominal Pain, Nausea, Vomiting Genitourinary: Denies: Dysuria Musculoskeletal: Denies: Joint Pain, Joint Tenderness Skin: Denies: Rash, Wounds Neurological: Denies: Numbness, Tingling, Focal weakness Psychiatric: Denies: Anxiety, Depression, Homicidal Ideations, Suicidal Ideations Hematologic/ Lymphatic: Denies: Easy Bruising, Easy Bleeding Objective: aox3 mute follows commands no cn deficit, no facial assymetry flores intact no sensory deficits right side 5/5 left side give-way, distractible dtrs 1+, toes down - Physical Exam Vital Signs Temp Pulse Resp BP Pulse Ox 36.7 C 60 18 150/78 H 96 03/11/17 09:13 03/11/17 09:23 03/11/17 09:13 03/11/17 09:13 03/11/17 09:23 Oxygen Flow Rate 2 Oxygen Delivery Method Nasal Cannula Weight: 115.6 kg Body Mass Index (BMI) 36.6 Intake and Output for Last 24 Hours 03/09/17 03/10/17 03/11/17 23:59 23:59 23:59 Output Total 450 / 450 Balance -450 / -450 Laboratory Tests Past 24 Hrs 03/11/17 03/11/17 03/11/17 03:44 05:55 09:10 WBC 5.6 RBC 3.84 L Hgb 12.4 L Hct 37.8 L MCV 98.4 H MCH 32.3 H MCHC 32.8 RDW 14.2 RDW Differential 50.3 H Plt Count 114 L MPV 10.2 Sodium 142 Potassium 3.9 Chloride 103 Carbon Dioxide 32.0 Anion Gap 7 BUN 16 Creatinine 0.92 Estim Creat Clear Calc 81.55 Est GFR (MDRD) Af Amer 106 Est GFR (MDRD) Non-Af 87 BUN/Creatinine Ratio 17.4 Glucose 177 H Calcium 7.9 L Troponin I < 0.02 < 0.02 Triglycerides 125 Cholesterol 92 LDL Cholesterol 23 VLDL Cholesterol 25 HDL Cholesterol 44 POC Glucose 03/11/17 05:34 POC Glucose 177 H Assessment/Plan recurrent spells of of left sided weakness, associated with language deficits, extensive workup with multiple spells over the past decade including extended eeg. no mri due to pacer. suspect there may be a nonphysiologic component repeat ct to r/o cva consider ssri: pt/ agree maximize pulmonary and metabolic support pt/ot/sp
--- NOTE | 2017-03-11 12:05 | CT_ITS ---
STUDY: CT BRAIN WITHOUT CONTRAST REASON FOR EXAM: Male, 66 years old. Seizures. CVA. RADIATION DOSAGE (If Supplied By Facility): CTDIvol = ( 44.99 ) mGy, DLP = ( 796.11 ) mGycm TECHNIQUE: Transaxial CT imaging of the brain was performed without administration of intravenous contrast material. Individualized dose optimization techniques were used for this CT. COMPARISON: Comparison is made with prior study dated September 07, 2017. FINDINGS: Normal soft tissue structures. Normal calvarium. Normal size ventricles and extra-axial spaces for the patient's age. Normal white matter tracts of the cerebral hemispheres. Normal basal ganglia and thalami. Normal brainstem. Normal cerebellum. There is no intracranial hemorrhage. There are no findings of an acute ischemic infarction. Normal visualized paranasal sinuses. CT/Brain/Head without Contrast IMPRESSION: Normal unenhanced CT scan of the brain. Electronically Signed: Mick García MD at 13:11 EST Tel [phone], Service support ,
--- NOTE | 2017-03-11 12:05 | CON.PCM_ITS ---
Reason for Consult Date of Consultation: 03/11/17 Reason for Consultation: aphasia and left sided weakness History of Present Illness: The patient is a 66 year old right handed white male who is admitted for a recurrent stereotyped spell of which he has had greater than 50 over the past 16 yrs, with negative extensive workup including 72hr eeg. now has pacer. spells last from one hour to 4 days, no apparent trigger although he has experienced severe stress recently due to the of a pet. recently hospitalized two weeks ago for a similar event. per h&p:The patient is a 66 y/o M w/ PMHx: HTN, HLD, Obesity, CAD s/p CABG, s/ p Pacemaker, Diabetes mellitus type II, Hx CVA prior w/ chronic L sided weakness , paresthesias, Chronic Hypoxic Respiratory Failure suspected secondary to Chronic COPD (3L NC), EKATERINA on CPAP q HS, ? Seizure disorder who presents to the [facility] ED on 03/10/17 w/ history of onset after 5 PM weakness, debility, minimally responsive, diffuse weakness and garbled speech noted to have been found per his spouse hunched over in a chair with unclear specific onset time but noted to have been normal earlier in the day in addition to complaints of diffuse chest discomfort without associated nausea, diaphoresis or dyspnea which has been chronic and ongoing with recent evaluation and admission including cardiac catheterization. In the ED work-up included T 98.2, HR 60, BP 156/86, RR 20, 93 % on 2L NC, CBC w/ WBC 6.6, Hgb 12.8, Plts 134 without marked shift, not marked appearing coags, unremarkable CMP aside glucose 151, trop <0.02, UDS negative, EtOH level unremarkable, EKG paced without acute evidence of ischemia, CT brain without acute findings, CTA head and neck without acute findings. In the ED patient administered ASA VA, morphine, NS. Past Medical History Past Medical History (Chronic Problems): Chronic Problems Hyperlipidemia (Chronic) Hypertension (Chronic) Obesity (Chronic) Pacemaker (Chronic) 2001 Weakness of limb (Chronic) Chronic respiratory failure (Chronic) baseline 3L continuously CAD (coronary artery disease) (Chronic) DM type 2 (diabetes mellitus, type 2) (Chronic) History of smoking (Chronic) Obstructive sleep apnea (Chronic) Seizure (Chronic) left sided tingling left body (Chronic) S/P CABG (coronary artery bypass graft) (Chronic) S/P PTCA (percutaneous transluminal coronary angioplasty) (Chronic) CVA (cerebral vascular accident) (Chronic) Allergies ezetimibe Allergy (Verified 02/22/17 20:19) Unknown Fish Containing Products Allergy (Verified 02/22/17 20:19) Unknown glyburide Allergy (Verified 02/22/17 20:19) Unknown lisinopril Allergy (Verified 02/22/17 20:19) Unknown metoprolol Allergy (Verified 02/22/17 20:19) Unknown simvastatin Allergy (Verified 02/22/17 20:19) Unknown Home Medications: Ambulatory Orders Medication Instructions Recorded Atenolol [Tenormin (beta theron)] 100 mg PO DAILY 08/09/16 Atorvastatin Calcium [Lipitor] 80 mg PO QHS 08/09/16 Cholecalciferol (Vitamin D3) 3,000 unit PO DAILY 08/09/16 [D3-2000] Finasteride [Proscar] 5 mg PO DAILY 08/09/16 Furosemide [Lasix] 20 mg PO DAILY 08/09/16 Insulin U-500 [Humulin R U-500 125 units SC LUNCH 08/09/16 ([facility])] Insulin U-500 [Humulin R U-500 140 unit SC DINNER 08/09/16 ([facility])] Insulin U-500 [Humulin R U-500 175 units SC BREAKFAST 08/09/16 ([facility])] Multivitamin with Minerals/Lut 1 each PO DAILY 08/09/16 [Pub Multivitamin 50 Plus Tab] Nitroglycerin [Nitrostat] 0.4 mg SUBLINGUAL Q5M PRN 08/09/16 Pantoprazole Sodium [Protonix] 40 mg PO BID 08/09/16 Tamsulosin HCl [Flomax] 0.8 mg PO QHS 08/09/16 Clopidogrel Bisulfate [Clopidogrel] 75 mg PO DAILY 12/25/16 Isosorbide Dinitrate 20 mg PO TID 01/26/17 Alprostadil [Caverject] 20 mcg IC X1 PRN 02/22/17 Dextrose [Glucose] 4 gm PO X1 PRN 02/22/17 Ketoconazole 1 applicatio TOPICAL DAILY 02/22/17 Menthol [Icy Hot] 1 applicatio TP TID PRN 02/22/17 Aspirin E.C. [Ecotrin] 81 mg PO DAILY@0800 tablet 02/25/17 Ranolazine [Ranexa] 1,000 mg PO BID 03/10/17 Surgical History: angioplasty, coronary bypass surgery, pacemaker implantation, - - cabg,cholecystectemy, hernia, left knee, 4 stents Psychiatric History: No pertinent psych hx Lives: Spouse/ Significant Other Smoking Status: Former smoker Tobacco Use: Non-smoker Alcohol: None Drugs: None - *Family History Maternal History Items: Heart Disease Paternal History Items: Unknown Review of Systems Constitutional: Denies: Chills, Fever, Weight Change HEENT: Denies: Head Aches, Sinus Congestion, Sinus Drainage Cardiovascular: Denies: Chest Pain, Palpitations Respiratory: Denies: Cough, Shortness of breath at rest, Sputum production Gastrointestinal: Denies: Abdominal Pain, Nausea, Vomiting Genitourinary: Denies: Dysuria Musculoskeletal: Denies: Joint Pain, Joint Tenderness Skin: Denies: Rash, Wounds Neurological: Denies: Numbness, Tingling, Focal weakness Psychiatric: Denies: Anxiety, Depression, Homicidal Ideations, Suicidal Ideations Hematologic/ Lymphatic: Denies: Easy Bruising, Easy Bleeding Objective: aox3 mute follows commands no cn deficit, no facial assymetry flores intact no sensory deficits right side 5/5 left side give-way, distractible dtrs 1+, toes down - Physical Exam Vital Signs Temp Pulse Resp BP Pulse Ox 36.7 C 60 18 150/78 H 96 03/11/17 09:13 03/11/17 09:23 03/11/17 09:13 03/11/17 09:13 03/11/17 09:23 Oxygen Flow Rate 2 Oxygen Delivery Method Nasal Cannula Weight: 115.6 kg Body Mass Index (BMI) 36.6 Intake and Output for Last 24 Hours 03/09/17 03/10/17 03/11/17 23:59 23:59 23:59 Output Total 450 / 450 Balance -450 / -450 Laboratory Tests Past 24 Hrs 03/11/17 03/11/17 03/11/17 03:44 05:55 09:10 WBC 5.6 RBC 3.84 L Hgb 12.4 L Hct 37.8 L MCV 98.4 H MCH 32.3 H MCHC 32.8 RDW 14.2 RDW Differential 50.3 H Plt Count 114 L MPV 10.2 Sodium 142 Potassium 3.9 Chloride 103 Carbon Dioxide 32.0 Anion Gap 7 BUN 16 Creatinine 0.92 Estim Creat Clear Calc 81.55 Est GFR (MDRD) Af Amer 106 Est GFR (MDRD) Non-Af 87 BUN/Creatinine Ratio 17.4 Glucose 177 H Calcium 7.9 L Troponin I < 0.02 < 0.02 Triglycerides 125 Cholesterol 92 LDL Cholesterol 23 VLDL Cholesterol 25 HDL Cholesterol 44 POC Glucose 03/11/17 05:34 POC Glucose 177 H Assessment/Plan recurrent spells of of left sided weakness, associated with language deficits, extensive workup with multiple spells over the past decade including extended eeg. no mri due to pacer. suspect there may be a nonphysiologic component repeat ct to r/o cva consider ssri: pt/ agree maximize pulmonary and metabolic support pt/ot/sp
[2017-03-11 12:11] LABS: Mucous, Urine 0 SEEN /hpf (<or=2+); Red Blood Cells-Urine 0 SEEN /hpf (0-5)
[2017-03-11 12:22] LABS: Color, Urine Yellow (Yellow); Glucose, Dipstick 250 mg/dl (Normal); Ketone-Dipstick Negative (Negative); Leukocyte Esterase-Dipstick 100 /ul (Negative); Nitrite-Dipstick Negative (Negative); Occult Blood-Urine Negative /ul (Negative); Protein-Dipstick 30 mg/dl (Negative); Urine Bilirubin Dipstick Negative (Negative); Urine Clarity Sl. Cloudy (Clear); Urine Urobilinogen Normal (Normal)
[2017-03-11 12:41] LABS: Bacteria 4+ /hpf (None Seen); Squamous Epithelial Cells - UA 0-5 SEEN /hpf (0-5); White Blood Cells 0-5 SEEN /hpf (0-5)
[2017-03-11] MEDS: Aspirin 300 MG Suppository RECTAL (13:15)
[2017-03-11 13:36] LABS: Bedside Glucose 186 mg/dL (70-110)
[2017-03-11 17:46] LABS: Bedside Glucose 178 mg/dL (70-110)
--- NOTE | 2017-03-11 18:02 | NURSING ---
REVIEWED AND AGREED W/ Giuliana RICHARDSON'S CHARTING.
--- NOTE | 2017-03-11 23:33 | PN_ITS ---
Subjective: Seen and examined. No new complaints. Objective: Physical Examination: General: awake, alert, not pale or jaundiced Skin: normal color, turgor, no icterus, cyanosis. HEENT: moist oral mucosa Lungs: Diminished BS BL, > bases, mild effort, no rales, ronchi or wheezing. Heart: Regular rate and rhythm (paced); no gallop, rub audible. Abdomen: soft, obese, NTTP, ND, normal BS, no HSM. Extremities: no cyanosis, clubbing, or edema. Neurological: patient awake, alert, oriented as noted; cognitive function not baseline intact; pupils equally reactive to light and accomodation; difficult to assess CN given current presentation but appear intact, chronic L sided hemiplegia and paresthesias, R sided upper and lower extremity 2-3/5 weakness notable, R babinski equivocal, L upgoing, notable garbled speech, strength accordingly severely globally decreased. Psychiatric: affect appears normal, no acute evidence of depressive or anxiety feelings. Vitals/I&O's: Vital Signs Temp Pulse Resp BP Pulse Ox 97.9 F 66 16 166/70 H 97 03/11/17 20:01 03/11/17 23:11 03/11/17 20:01 03/11/17 20:01 03/11/17 20:01 Oxygen Flow Rate 2 Oxygen Delivery Method Nasal Cannula Weight: 115.6 kg Body Mass Index (BMI) 36.6 Intake and Output for Last 24 Hours 03/09/17 03/10/17 03/11/17 23:59 23:59 23:59 Intake Total 0 / 0 Output Total 700 / 700 Balance -700 / -700 Laboratory Results 03/11/17 03:44: Sodium 142, Potassium 3.9, Chloride 103, Carbon Dioxide 32.0, Anion Gap 7, BUN 16, Creatinine 0.92, Estim Creat Clear Calc 81.55, Est GFR ( MDRD) Af Amer 106, Est GFR (MDRD) Non-Af 87, BUN/Creatinine Ratio 17.4, Glucose 177 H, Calcium 7.9 L, Troponin I < 0.02, Triglycerides 125, Cholesterol 92, LDL Cholesterol 23, VLDL Cholesterol 25, HDL Cholesterol 44 03/11/17 05:34: POC Glucose 177 H 03/11/17 05:55: WBC 5.6, RBC 3.84 L, Hgb 12.4 L, Hct 37.8 L, MCV 98.4 H, MCH 32.3 H, MCHC 32.8, RDW 14.2, RDW Differential 50.3 H, Plt Count 114 L, MPV 10.2 03/11/17 09:10: Troponin I < 0.02 03/11/17 11:09: Urine Color Yellow, Urine Clarity Sl. Cloudy, Urine pH 5.0, Ur Specific [place] 1.020, Urine Protein 30 H, Urine Glucose (UA) 250 H, Urine Ketones Negative, Urine Occult Blood Negative, Urine Nitrite Negative, Urine Bilirubin Negative, Urine Urobilinogen Normal, Ur Leukocyte Esterase 100 H, Urine RBC 0 SEEN, Urine WBC 0-5 SEEN, Ur Squamous Epith Cells 0-5 SEEN, Urine Bacteria 4+, Urine Mucus 0 SEEN 03/11/17 13:22: POC Glucose 186 H 03/11/17 17:38: POC Glucose 178 H Current Medications Acetaminophen (Tylenol) 650 mg RECTAL Q6H PRN PRN PRN Reason: fever, pain Albuterol Sulfate (Ventolin Aerosols) 2.5 mg INHALATION Q2H PRN PRN PRN Reason: dyspnea, wheezing Albuterol/Ipratropium (Duoneb) 3 ml INHALATION Q6HWA.RT [facility] Last Admin: 03/11/17 19:55 Dose: 3 ml Aspirin (Aspirin) 300 mg RECTAL DAILY [facility] Last Admin: 03/11/17 13:15 Dose: 300 mg Dextrose (D50w Syringe) 0 gm IV X1 PRN; Protocol PRN Reason: Hypoglycemia Enoxaparin Sodium (Lovenox) 40 mg SC DAILY@1000 [facility] Last Admin: 03/11/17 09:06 Dose: 40 mg Escitalopram Oxalate (Lexapro) 10 mg PO DAILY [facility] Glucagon () 1 mg IM .X1 PRN PRN Reason: Hypoglycemia Hydralazine HCl (Apresoline) 10 mg IV Q4H PRN PRN PRN Reason: SBP > 200 Famotidine 20 mg/ Sodium (Chloride) 10 mls @ 300 mls/hr IV Q12 [facility] Last Admin: 03/11/17 22:10 Dose: 300 mls/hr Insulin Aspart (Novolog Flexpen (Bkc)) 0 units SC Q6 [facility] PRN Reason: Protocol Last Admin: 03/11/17 23:31 Dose: 2 units Morphine Sulfate (Morphine) 1 - 2 mg IV Q4H PRN PRN PRN Reason: PAIN Last Admin: 03/11/17 20:03 Dose: 2 mg Nitroglycerin (Nitrostat) 0.4 mg SUBLINGUAL Q5M PRN PRN Reason: Chest Pain Ondansetron HCl (Zofran) 4 mg IV Q8H PRN PRN PRN Reason: NAUSEA Sodium Chloride () 5 - 30 ml IV UD PRN PRN Reason: SALINE FLUSH Last Admin: 03/11/17 22:10 Dose: 10 ml Assessment/Plan 66 y/o M w/ PMHx of Hypertension, hyperlipidemia, CAD s/p CABG, s/p Pacemaker, Diabetes mellitus type II, Hx CVA prior w/ chronic L sided weakness, paresthesias, Chronic Hypoxic Respiratory Failure suspected secondary to Chronic COPD (3L NC), EKATERINA on CPAP q HS, ? Seizure disorder admitted on 03/10/17 with weakness, debility, minimally responsive, diffuse weakness and garbled speech noted to have been found per his spouse hunched over in a chair with unclear specific onset time. 1. Focal Weakness, R sided, Garbled speech w/ Hx Prior CVA w/ Chronic L hemiplegia and paresthesias concerning for TIACVA, neurology consulted, will get repeat CT scan of head, continue on aspirin, continue to monitor on telemetry, PT and OT to evaluate 2. Chest pain, h/o CAD: s/p CABG and recent 02/24/17 Cardiac catherization, troponins ?3 are negative, fasting lipid profile shows controlled lipid profile. 3. Chronic COPD: ATC duonebs, PRN albuterol, HOB, IS parameters. 4. Diabetes mellitus type II, HbA1c 7.5, blood sugars are stable, will continue Accu-Cheks with insulin sliding scale. 5. Obesity, Weight loss and lifestyle changes encouraged 6. Hyperlipidemia, will resume statins 7. Hypertension, fairly controlled, will restart home meds in am 8. GERD, on Famotidine IV. 9. EKATERINA on CPAP 10. DVT Prophylaxis: SCDs, lovenox. 11. CODE status: Full code
[2017-03-11 23:36] LABS: Bedside Glucose 168 mg/dL (70-110)
[2017-03-12] VITALS (15 sets, daily range): BP systolic 127–144; BP diastolic 59–74; PULSE 60–78; RESP 16–20; TEMP 36.4–36.7; O2SAT 94–98; BMI 36.6
[2017-03-12] MEDS: 0.9% NaCl Peripheral Flush Adult/Peds IV ×5 (03:06→22:12)
[2017-03-12 05:21] LABS: Bedside Glucose 171 mg/dL (70-110)
[2017-03-12] MEDS: Ipratropium/Albuterol Sulfate 3 ML AMPUL.NEB INHALATION ×2 (07:00→20:22)
[2017-03-12] MEDS: Aspirin 300 MG Suppository RECTAL (09:14)
[2017-03-12] MEDS: Enoxaparin 40 MG/0.4 ML Syringe SC (09:14)
--- NOTE | 2017-03-12 10:23 | PCM.PN.NEU ---
Subjective: REPORTS left arm pain, he says it was there yesterday. not severe, otherwise unchanged. denies stress. has been on dilantin and depakote in the past, continued to experience spells. doesnt recall being on keppra. - Physical Exam General: Alert, Cooperative Neurological: - - remains essentially mute, but no facial assymetry, left arm drift with give-way. observed to use his left arm normally when using it for other tasks such as holding a folder, and writes normally. Vital Signs Temp Pulse Resp BP Pulse Ox 36.7 C 70 18 140/59 H 95 03/12/17 07:37 03/12/17 08:03 03/12/17 08:03 03/12/17 07:37 03/12/17 08:03 Oxygen Flow Rate 2 Oxygen Delivery Method Nasal Cannula Weight: 115.6 kg Body Mass Index (BMI) 36.6 Intake and Output for Last 24 Hours 03/10/17 03/11/17 03/12/17 23:59 23:59 23:59 Intake Total 0 / 0 0 / 0 Output Total 850 / 850 250 / 250 Balance -850 / -850 -250 / -250 Laboratory Tests Past 24 Hrs 03/11/17 03/12/17 11:09 00:12 Troponin I < 0.02 Urine Color Yellow Urine Clarity Sl. Cloudy Urine pH 5.0 Ur Specific [place] 1.020 Urine Protein 30 H Urine Glucose (UA) 250 H Urine Ketones Negative Urine Occult Blood Negative Urine Nitrite Negative Urine Bilirubin Negative Urine Urobilinogen Normal Ur Leukocyte Esterase 100 H Urine RBC 0 SEEN Urine WBC 0-5 SEEN Ur Squamous Epith Cells 0-5 SEEN Urine Bacteria 4+ Urine Mucus 0 SEEN POC Glucose 03/12/17 03/11/17 03/11/17 05:11 23:30 17:38 POC Glucose 171 H 168 H 178 H 03/11/17 13:22 POC Glucose [address] reviewed, no acute, no change compared to initial ct on admission. Assessment/Plan recurrent spells of of left sided weakness, associated with language deficits, extensive workup with multiple spells over the past decade including extended eeg. no mri due to pacer. no benefit from aeds in the past including dilantin and depakote. repeat ct neg suspect there may be a nonphysiologic component consider ssri: pt/ agree. hasnt started, still npo maximize pulmonary and metabolic support pt/ot/sp try iv keppra x1
--- NOTE | 2017-03-12 11:40 | CASEMGMT ---
AYUSH spoke with patient and his . SW asked about d/c plan, said she didn't know and patient grunted a little and waived his hands around. She said she plans on him going home as he was much worse than this before and [facility]. AYUSH asked about home health and patient again grunted and waived his hands. Patient's said they had home health before and it did not work out well. They suggested he get another grab bar in the shower, did not want to do this as she was afraid it would eventually leak. She said they then told her if they are not going to listen to their recommendations then there is no point in them coming out. They told the therapist, to leave. Patient only has Medicare A so if he were to do outpatient [facility] it [facility]. Plan: home. Refusing SNF and home health [facility] [place]
[2017-03-12 13:40] LABS: Bedside Glucose 203 mg/dL (70-110)
[2017-03-12] MEDS: Albuterol 2.5 MG/3 ML VIAL.NEB. INHALATION (16:42)
[2017-03-12 17:31] LABS: Bedside Glucose 249 mg/dL (70-110)
--- NOTE | 2017-03-12 17:57 | PCM.PN.HOSP ---
Subjective: Was seen and examined. Still n.p.o. Speech therapy to assist patient. No acute events overnight. Complains of chest pain but patient has not been consistent with this complaint, workup has been negative. Objective: Physical Examination: General: awake, alert, not pale or jaundiced, dysarthric Skin: normal color, turgor, no icterus, cyanosis. HEENT: moist oral mucosa Lungs: Diminished BS BL, > bases, mild effort, no rales, ronchi or wheezing. Heart: Regular rate and rhythm (paced); no gallop, rub audible. Abdomen: soft, obese, NTTP, ND, normal BS, no HSM. Extremities: no cyanosis, clubbing, or edema. Neurological: patient awake, alert, oriented as noted; cognitive function not baseline intact; pupils equally reactive to light and accomodation; difficult to assess CN given current presentation but appear intact, chronic L sided hemiplegia and paresthesias, R sided upper and lower extremity 2-3/5 weakness notable, R babinski equivocal, L upgoing, notable garbled speech, strength accordingly severely globally decreased. Psychiatric: affect appears normal, no acute evidence of depressive or anxiety feelings. Vitals/I&O's: Vital Signs Temp Pulse Resp BP Pulse Ox 97.6 F L 68 20 H 143/74 H 94 03/12/17 15:40 03/12/17 16:42 03/12/17 16:42 03/12/17 15:40 03/12/17 15:40 Oxygen Flow Rate 2 Oxygen Delivery Method Nasal Cannula Weight: 115.6 kg Body Mass Index (BMI) 36.6 Intake and Output for Last 24 Hours 03/10/17 03/11/17 03/12/17 23:59 23:59 23:59 Intake Total 0 / 0 652 / 652 Output Total 850 / 850 450 / 450 Balance -850 / -850 202 / 202 Microbiology Past 72 Hours 03/11/17 11:09 Urine, Clean Catch Urine Culture - Final Mixed Gram Positive Organisms Laboratory Results 03/11/17 23:30: POC Glucose 168 H 03/12/17 00:12: Troponin I < 0.02 03/12/17 05:11: POC Glucose 171 H 03/12/17 13:28: POC Glucose 203 H 03/12/17 17:27: POC Glucose 249 H Current Medications Albuterol Sulfate (Ventolin Aerosols) 2.5 mg INHALATION Q2H PRN PRN PRN Reason: dyspnea, wheezing Last Admin: 03/12/17 16:42 Dose: 2.5 mg Albuterol/Ipratropium (Duoneb) 3 ml INHALATION Q6HWA.RT [facility] Last Admin: 03/12/17 13:12 Dose: Not Given Aspirin (Aspirin) 300 mg RECTAL DAILY [facility] Last Admin: 03/12/17 09:14 Dose: 300 mg Dextrose (D50w Syringe) 0 gm IV X1 PRN; Protocol PRN Reason: Hypoglycemia Enoxaparin Sodium (Lovenox) 40 mg SC DAILY@1000 [facility] Last Admin: 03/12/17 09:14 Dose: 40 mg Escitalopram Oxalate (Lexapro) 10 mg PO DAILY [facility] Last Admin: 03/12/17 09:15 Dose: Not Given Glucagon () 1 mg IM .X1 PRN PRN Reason: Hypoglycemia Hydralazine HCl (Apresoline) 10 mg IV Q4H PRN PRN PRN Reason: SBP > 200 Famotidine 20 mg/ Sodium (Chloride) 10 mls @ 300 mls/hr IV Q12 [facility] Last Admin: 03/12/17 09:14 Dose: 300 mls/hr Insulin Aspart (Novolog Flexpen (Bkc)) 0 units SC Q6 [facility] PRN Reason: Protocol Last Admin: 03/12/17 17:53 Dose: 4 units Morphine Sulfate (Morphine) 1 - 2 mg IV Q4H PRN PRN PRN Reason: PAIN Last Admin: 03/12/17 10:38 Dose: 2 mg Nitroglycerin (Nitrostat) 0.4 mg SUBLINGUAL Q5M PRN PRN Reason: Chest Pain Ondansetron HCl (Zofran) 4 mg IV Q8H PRN PRN PRN Reason: NAUSEA Sodium Chloride () 5 - 30 ml IV UD PRN PRN Reason: SALINE FLUSH Last Admin: 03/12/17 10:39 Dose: 10 ml Assessment/Plan 66 y/o M w/ PMHx of Hypertension, hyperlipidemia, CAD s/p CABG, s/p Pacemaker, Diabetes mellitus type II, Hx CVA prior w/ chronic L sided weakness, paresthesias, Chronic Hypoxic Respiratory Failure suspected secondary to Chronic COPD (3L NC), EKATERINA on CPAP q HS, ? Seizure disorder admitted on 03/10/17 with weakness, debility, minimally responsive, diffuse weakness and garbled speech noted to have been found per his spouse hunched over in a chair with unclear specific onset time. 1. Recurrent focal Weakness, R sided, Garbled speech, history of with chronic L hemiplegia and paresthesias, neurology consulted, repeat CT scan of head is negative, continue on aspirin, continue to monitor on telemetry, PT and OT to evaluate, would start SSRIs if patient is able to take oral medication 2. Dysphagia, speech therapy working with the patient, kept n.p.o., therapy notes today shows no overt signs and symptoms of aspiration, started on thin liquid mechanical soft diet, follow-up with recommendations tomorrow to check patient on his pills 2. Chest pain, h/o CAD s/p CABG and recent 02/24/17 Cardiac catherization, troponins ?3 are negative, fasting lipid profile shows controlled lipid profile, likely related to anxiety 3. Chronic COPD, continue with as needed breathing treatments 4. Diabetes mellitus type II, HbA1c 7.5, blood sugars are stable, will continue Accu-Cheks with insulin sliding scale. 5. Obesity, Weight loss and lifestyle changes encouraged 6. Hyperlipidemia, will resume statins 7. Hypertension, fairly controlled, will restart home meds in am 8. GERD, on Famotidine IV. 9. EKATERINA on CPAP 10. DVT Prophylaxis: SCDs, lovenox. 11. CODE status: Full code Code Visit Inpatient E&M: 61825 Subs Hosp L2
--- NOTE | 2017-03-12 18:03 | PN_ITS ---
Subjective: Was seen and examined. Still n.p.o. Speech therapy to assist patient. No acute events overnight. Complains of chest pain but patient has not been consistent with this complaint, workup has been negative. Objective: Physical Examination: General: awake, alert, not pale or jaundiced, dysarthric Skin: normal color, turgor, no icterus, cyanosis. HEENT: moist oral mucosa Lungs: Diminished BS BL, > bases, mild effort, no rales, ronchi or wheezing. Heart: Regular rate and rhythm (paced); no gallop, rub audible. Abdomen: soft, obese, NTTP, ND, normal BS, no HSM. Extremities: no cyanosis, clubbing, or edema. Neurological: patient awake, alert, oriented as noted; cognitive function not baseline intact; pupils equally reactive to light and accomodation; difficult to assess CN given current presentation but appear intact, chronic L sided hemiplegia and paresthesias, R sided upper and lower extremity 2-3/5 weakness notable, R babinski equivocal, L upgoing, notable garbled speech, strength accordingly severely globally decreased. Psychiatric: affect appears normal, no acute evidence of depressive or anxiety feelings. Vitals/I&O's: Vital Signs Temp Pulse Resp BP Pulse Ox 97.6 F L 68 20 H 143/74 H 94 03/12/17 15:40 03/12/17 16:42 03/12/17 16:42 03/12/17 15:40 03/12/17 15:40 Oxygen Flow Rate 2 Oxygen Delivery Method Nasal Cannula Weight: 115.6 kg Body Mass Index (BMI) 36.6 Intake and Output for Last 24 Hours 03/10/17 03/11/17 03/12/17 23:59 23:59 23:59 Intake Total 0 / 0 652 / 652 Output Total 850 / 850 450 / 450 Balance -850 / -850 202 / 202 Microbiology Past 72 Hours 03/11/17 11:09 Urine, Clean Catch Urine Culture - Final Mixed Gram Positive Organisms Laboratory Results 03/11/17 23:30: POC Glucose 168 H 03/12/17 00:12: Troponin I < 0.02 03/12/17 05:11: POC Glucose 171 H 03/12/17 13:28: POC Glucose 203 H 03/12/17 17:27: POC Glucose 249 H Current Medications Albuterol Sulfate (Ventolin Aerosols) 2.5 mg INHALATION Q2H PRN PRN PRN Reason: dyspnea, wheezing Last Admin: 03/12/17 16:42 Dose: 2.5 mg Albuterol/Ipratropium (Duoneb) 3 ml INHALATION Q6HWA.RT [facility] Last Admin: 03/12/17 13:12 Dose: Not Given Aspirin (Aspirin) 300 mg RECTAL DAILY [facility] Last Admin: 03/12/17 09:14 Dose: 300 mg Dextrose (D50w Syringe) 0 gm IV X1 PRN; Protocol PRN Reason: Hypoglycemia Enoxaparin Sodium (Lovenox) 40 mg SC DAILY@1000 [facility] Last Admin: 03/12/17 09:14 Dose: 40 mg Escitalopram Oxalate (Lexapro) 10 mg PO DAILY [facility] Last Admin: 03/12/17 09:15 Dose: Not Given Glucagon () 1 mg IM .X1 PRN PRN Reason: Hypoglycemia Hydralazine HCl (Apresoline) 10 mg IV Q4H PRN PRN PRN Reason: SBP > 200 Famotidine 20 mg/ Sodium (Chloride) 10 mls @ 300 mls/hr IV Q12 [facility] Last Admin: 03/12/17 09:14 Dose: 300 mls/hr Insulin Aspart (Novolog Flexpen (Bkc)) 0 units SC Q6 [facility]LEX[facility] PRN Reason: Protocol Last Admin: 03/12/17 17:53 Dose: 4 units Morphine Sulfate (Morphine) 1 - 2 mg IV Q4H PRN PRN PRN Reason: PAIN Last Admin: 03/12/17 10:38 Dose: 2 mg Nitroglycerin (Nitrostat) 0.4 mg SUBLINGUAL Q5M PRN PRN Reason: Chest Pain Ondansetron HCl (Zofran) 4 mg IV Q8H PRN PRN PRN Reason: NAUSEA Sodium Chloride () 5 - 30 ml IV UD PRN PRN Reason: SALINE FLUSH Last Admin: 03/12/17 10:39 Dose: 10 ml Assessment/Plan 66 y/o M w/ PMHx of Hypertension, hyperlipidemia, CAD s/p CABG, s/p Pacemaker, Diabetes mellitus type II, Hx CVA prior w/ chronic L sided weakness, paresthesias, Chronic Hypoxic Respiratory Failure suspected secondary to Chronic COPD (3L NC), EKATERINA on CPAP q HS, ? Seizure disorder admitted on 03/10/17 with weakness, debility, minimally responsive, diffuse weakness and garbled speech noted to have been found per his spouse hunched over in a chair with unclear specific onset time. 1. Recurrent focal Weakness, R sided, Garbled speech, history of with chronic L hemiplegia and paresthesias, neurology consulted, repeat CT scan of head is negative, continue on aspirin, continue to monitor on telemetry, PT and OT to evaluate, would start SSRIs if patient is able to take oral medication 2. Dysphagia, speech therapy working with the patient, kept n.p.o., therapy notes today shows no overt signs and symptoms of aspiration, started on thin liquid mechanical soft diet, follow-up with recommendations tomorrow to check patient on his pills 2. Chest pain, h/o CAD s/p CABG and recent 02/24/17 Cardiac catherization, troponins ?3 are negative, fasting lipid profile shows controlled lipid profile , likely related to anxiety 3. Chronic COPD, continue with as needed breathing treatments 4. Diabetes mellitus type II, HbA1c 7.5, blood sugars are stable, will continue Accu-Cheks with insulin sliding scale. 5. Obesity, Weight loss and lifestyle changes encouraged 6. Hyperlipidemia, will resume statins 7. Hypertension, fairly controlled, will restart home meds in am 8. GERD, on Famotidine IV. 9. EKATERINA on CPAP 10. DVT Prophylaxis: SCDs, lovenox. 11. CODE status: Full code Code Visit Inpatient E&M: 39264 Subs Hosp L2
--- NOTE | 2017-03-12 18:29 | NURSING ---
REVIEWED AND AGREED W/ Giuliana RICHARDSON'S CHARTING.
[2017-03-12 22:36] LABS: Bedside Glucose 275 mg/dL (70-110)
[2017-03-13] VITALS (9 sets, daily range): BP systolic 129–147; BP diastolic 64–70; PULSE 65–79; RESP 16–18; TEMP 36.3–36.9; O2SAT 96–97; BMI 36.6
[2017-03-13] MEDS: 0.9% NaCl Peripheral Flush Adult/Peds IV ×2 (01:36→11:07)
[2017-03-13 07:11] LABS: Bedside Glucose 214 mg/dL (70-110)
[2017-03-13] MEDS: Ipratropium/Albuterol Sulfate 3 ML AMPUL.NEB INHALATION (07:54)
[2017-03-13] MEDS: Enoxaparin 40 MG/0.4 ML Syringe SC (10:48)
[2017-03-13] MEDS: Escitalopram Oxalate 10 MG Tablet PO (10:48)
[2017-03-13 11:16] LABS: Bedside Glucose 304 mg/dL (70-110)
--- NOTE | 2017-03-13 11:45 | PCM.DC ---
- Discharge Diagnoses Reason(s) for Visit for Discharge Instructions: Left sided weakness You will use the following diet at home:: Calorie/Carbohydrate Controlled (specify 1200, 1400, etc), Cardiac Your food should be the consistency of: Mechanical soft (ground) Your liquids should be the consistency of: Regular/Thin Discharge Activity: Return to Normal Activity Allergies/Adverse Reactions: Allergies ezetimibe Allergy (Verified 02/22/17 20:19) Unknown Fish Containing Products Allergy (Verified 02/22/17 20:19) Unknown glyburide Allergy (Verified 02/22/17 20:19) Unknown lisinopril Allergy (Verified 02/22/17 20:19) Unknown metoprolol Allergy (Verified 02/22/17 20:19) Unknown simvastatin Allergy (Verified 02/22/17 20:) Unknown Medications to take at Discharge Atenolol [Tenormin (beta threon)] 100 mg PO DAILY 08/09/16 Atorvastatin Calcium [Lipitor] 80 mg PO QHS 08/09/16 Cholecalciferol (Vitamin D3) [D3-2000] 3,000 unit PO DAILY 08/09/16 Finasteride [Proscar] 5 mg PO DAILY 08/09/16 Furosemide [Lasix] 20 mg PO DAILY 08/09/16 Insulin U-500 [Humulin R U-500 ([facility])] 125 units SC LUNCH 08/09/16 Insulin U-500 [Humulin R U-500 ([facility])] 140 unit SC DINNER 08/09/16 Insulin U-500 [Humulin R U-500 ([facility])] 175 units SC BREAKFAST 08/09/16 Multivitamin with Minerals/Lut [Pub Multivitamin 50 Plus Tab] 1 each PO DAILY 08/09/16 Nitroglycerin [Nitrostat] 0.4 mg SUBLINGUAL Q5M PRN 08/09/16 Pantoprazole Sodium [Protonix] 40 mg PO BID 08/09/16 Tamsulosin HCl [Flomax] 0.8 mg PO QHS 08/09/16 Clopidogrel Bisulfate [Clopidogrel] 75 mg PO DAILY 12/25/16 Isosorbide Dinitrate 20 mg PO TID 01/26/17 Alprostadil [Caverject] 20 mcg IC X1 PRN 02/22/17 Dextrose [Glucose] 4 gm PO X1 PRN 02/22/17 Ketoconazole 1 applicatio TOPICAL DAILY 02/22/17 Menthol [Icy Hot] 1 applicatio TP TID PRN 02/22/17 Aspirin E.C. [Ecotrin] 81 mg PO DAILY@0800 tablet 02/25/17 Ranolazine [Ranexa] 1,000 mg PO BID 03/10/17 Escitalopram Oxalate [Lexapro] 10 mg PO DAILY #30 tab 03/13/17 The following prescriptions were given: Escitalopram Oxalate [Lexapro] 10 mg PO DAILY #30 tab [facility] - Please follow up with your Primary Care Physician in: within 2 weeks When: [facility] Proposed Discharge Date: 03/13/17
--- NOTE | 2017-03-13 11:48 | DCINST_ITS ---
- Discharge Diagnoses Reason(s) for Visit for Discharge Instructions: Left sided weakness You will use the following diet at home:: Calorie/Carbohydrate Controlled ( specify 1200, 1400, etc), Cardiac Your food should be the consistency of: Mechanical soft (ground) Your liquids should be the consistency of: Regular/Thin Discharge Activity: Return to Normal Activity Allergies/Adverse Reactions: Allergies ezetimibe Allergy (Verified 02/22/17 20:19) Unknown Fish Containing Products Allergy (Verified 02/22/17 20:19) Unknown glyburide Allergy (Verified 02/22/17 20:19) Unknown lisinopril Allergy (Verified 02/22/17 20:19) Unknown metoprolol Allergy (Verified 02/22/17 20:19) Unknown simvastatin Allergy (Verified 02/22/17 20:) Unknown Medications to take at Discharge Atenolol [Tenormin (beta theron)] 100 mg PO DAILY 08/09/16 Atorvastatin Calcium [Lipitor] 80 mg PO QHS 08/09/16 Cholecalciferol (Vitamin D3) [D3-2000] 3,000 unit PO DAILY 08/09/16 Finasteride [Proscar] 5 mg PO DAILY 08/09/16 Furosemide [Lasix] 20 mg PO DAILY 08/09/16 Insulin U-500 [Humulin R U-500 (BKC)] 125 units SC LUNCH 08/09/16 Insulin U-500 [Humulin R U-500 (BKC)] 140 unit SC DINNER 08/09/16 Insulin U-500 [Humulin R U-500 (BKC)] 175 units SC BREAKFAST 08/09/16 Multivitamin with Minerals/Lut [Pub Multivitamin 50 Plus Tab] 1 each PO DAILY Nitroglycerin [Nitrostat] 0.4 mg SUBLINGUAL Q5M PRN 08/09/16 Pantoprazole Sodium [Protonix] 40 mg PO BID 08/09/16 Tamsulosin HCl [Flomax] 0.8 mg PO QHS 08/09/16 Clopidogrel Bisulfate [Clopidogrel] 75 mg PO DAILY 12/25/16 Isosorbide Dinitrate 20 mg PO TID 01/26/17 Alprostadil [Caverject] 20 mcg IC X1 PRN 02/22/17 Dextrose [Glucose] 4 gm PO X1 PRN 02/22/17 Ketoconazole 1 applicatio TOPICAL DAILY 02/22/17 Menthol [Icy Hot] 1 applicatio TP TID PRN 02/22/17 Aspirin E.C. [Ecotrin] 81 mg PO DAILY@0800 tablet 02/25/17 Ranolazine [Ranexa] 1,000 mg PO BID 03/10/17 Escitalopram Oxalate [Lexapro] 10 mg PO DAILY #30 tab 03/13/17 The following prescriptions were given: Escitalopram Oxalate [Lexapro] 10 mg PO DAILY #30 tab [facility] [[facility]] - Please follow up with your Primary Care Physician in: within 2 weeks When: [facility] Proposed Discharge Date: 03/13/17
--- NOTE | 2017-03-13 11:48 | PCM.DC.SUM ---
Discharge Date and Diagnosis Date of Admission: 03/10/17 Date of Discharge: 03/13/17 - Primary Discharge Diagnosis Recurrent focal weakness - Secondary Discharge Diagnosis Chronic Problems Hyperlipidemia (Chronic) Hypertension (Chronic) Obesity (Chronic) Pacemaker (Chronic) 2002 Weakness of limb (Chronic) Chronic respiratory failure (Chronic) baseline 3L continuously CAD (coronary artery disease) (Chronic) DM type 2 (diabetes mellitus, type 2) (Chronic) History of smoking (Chronic) Obstructive sleep apnea (Chronic) Seizure (Chronic) left sided tingling left body (Chronic) S/P CABG (coronary artery bypass graft) (Chronic) S/P PTCA (percutaneous transluminal coronary angioplasty) (Chronic) CVA (cerebral vascular accident) (Chronic) Hospital Course and Treatment Imaging Results: Clinical Impression(s) from Imaging Studies Brain CT 03/10/17 18:54 IMPRESSION: No acute intracranial pathology of the brain. N.B. : The above information has been verbally conveyed by Ever Raines DO to Irlanda Pena, Referring Physician, on 03/10/2017 19:20:40 (ET). Electronically Signed: Ever Raines DO at 19:20 EST Tel [phone], Service support , N.B. : The above information has been verbally conveyed by Ever Raines DO to Irlanda Pena, Referring Physician, on 03/10/2017 19:20:40 (ET). Chest X-Ray 03/10/17 18:54 IMPRESSION: Stable cardiomegaly and slight central pulmonary vascular prominence. Electronically Signed: Ever Raines DO at 19:58 EST Tel [phone], Service support , Head CTA 03/10/17 19:41 IMPRESSION: Normal [place] without a demonstrated aneurysm or hemodynamically significant stenosis. Electronically Signed: Ever Raines DO at 20:55 EST Tel [phone], Service support , Neck CTA 03/10/17 19:41 IMPRESSION: No hemodynamically significant stenosis of the bilateral cervical carotid and vertebral arteries. Electronically Signed: Ever Raines DO at 20:58 EST Tel [phone], Service support , Brain CT 03/11/17 12:05 IMPRESSION: Normal unenhanced CT scan of the brain. Electronically Signed: Mick García MD at 13:11 EST Tel [phone], Service support , Neurology Operations: None Procedures: 2-D Echocardiogram Summary of Care Provided: 66 y/o M w/ PMHx of Hypertension, hyperlipidemia, CAD s/p CABG, s/p Pacemaker, Diabetes mellitus type II, Hx CVA prior w/ chronic L sided weakness, paresthesias, Chronic Hypoxic Respiratory Failure suspected secondary to Chronic COPD (3L NC), EKATERINA on CPAP q HS, ? Seizure disorder admitted on 03/10/17 with weakness, debility, minimally responsive, diffuse weakness and garbled speech noted to have been found per his spouse hunched over in a chair with unclear specific onset time. 1. Recurrent focal Weakness, R sided, Garbled speech, history of with chronic L hemiplegia and paresthesias, TIA/CVA ruled out. Neurology consulted, repeat CT scan of head is negative, discussed with neurologist, believes there is a psychological component/conversion disorder, on aspirin, started on SSRI, will follow with neurology. Needs to follow-up with psychiatrist in [place] - stressed that to his also who voiced understanding. 2. Dysphagia, speech therapy working with the patient, discharged on pureed diet/mechanical soft diet 2. Chest pain, h/o CAD s/p CABG and recent 02/24/17 Cardiac catherization, troponins ?3 are negative, fasting lipid profile shows controlled lipid profile, likely related to anxiety 3. Chronic COPD 4. Diabetes mellitus type II, HbA1c 7.5 5. Obesity, Weight loss and lifestyle changes encouraged 6. Hyperlipidemia, on statin 7. Hypertension, on home meds 8. GERD 9. EKATERINA on CPAP Discharge Diet: Low fat/ Low Cholesterol, 2000 Calorie Control Diet, 2000 mg Sodium Diet Discharge Activity: Return to Normal Activity Home Medications: Medications to take at Discharge Atenolol [Tenormin (beta theron)] 100 mg PO DAILY 08/09/16 Atorvastatin Calcium [Lipitor] 80 mg PO QHS 08/09/16 Cholecalciferol (Vitamin D3) [D3-2000] 3,000 unit PO DAILY 08/09/16 Finasteride [Proscar] 5 mg PO DAILY 08/09/16 Furosemide [Lasix] 20 mg PO DAILY 08/09/16 Insulin U-500 [Humulin R U-500 ([facility])] 125 units SC LUNCH 08/09/16 Insulin U-500 [Humulin R U-500 ([facility])] 140 unit SC DINNER 08/09/16 Insulin U-500 [Humulin R U-500 ([facility])] 175 units SC BREAKFAST 08/09/16 Multivitamin with Minerals/Lut [Pub Multivitamin 50 Plus Tab] 1 each PO DAILY 08/09/16 Nitroglycerin [Nitrostat] 0.4 mg SUBLINGUAL Q5M PRN 08/09/16 Pantoprazole Sodium [Protonix] 40 mg PO BID 08/09/16 Tamsulosin HCl [Flomax] 0.8 mg PO QHS 08/09/16 Clopidogrel Bisulfate [Clopidogrel] 75 mg PO DAILY 12/25/16 Isosorbide Dinitrate 20 mg PO TID 01/26/17 Alprostadil [Caverject] 20 mcg IC X1 PRN 02/22/17 Dextrose [Glucose] 4 gm PO X1 PRN 02/22/17 Ketoconazole 1 applicatio TOPICAL DAILY 02/22/17 Menthol [Icy Hot] 1 applicatio TP TID PRN 02/22/17 Aspirin E.C. [Ecotrin] 81 mg PO DAILY@0800 tablet 02/25/17 Ranolazine [Ranexa] 1,000 mg PO BID 03/10/17 Escitalopram Oxalate [Lexapro] 10 mg PO DAILY #30 tab 03/13/17 Levetiracetam [Keppra] 500 mg PO BID #60 tab 03/13/17 Following Prescrptions Were Given to Patient: Escitalopram Oxalate [Lexapro] 10 mg PO DAILY #30 tab Levetiracetam [Keppra] 500 mg PO BID #60 tab [facility] [facility] [[facility] [place]] - Please follow up with your Primary Care Physician in: within 2 weeks [facility] Disposition: Home Minutes spent on discharge:: 25 Patient Condition:: Stable Meaningful Use Info Meaningful Use Diagnoses (Choose all that apply): None applicable Code Visit Inpatient E&M: 06881 Disch Hosp
== END 2017-03-13 14:48 | disposition home or self-care (01) | DRG 948 ==
LOC: ED 20:15 → PCU 22:40
PROVIDERS: Admitting Provider Family Medicine; Emergency Provider Emergency Medicine; Visit Provider Internal Medicine
DX: R53.1 Weakness (principal); J96.10 Chronic respiratory failure, unspecified whether with hypoxia or hypercapnia; J44.9 Chronic obstructive pulmonary disease, unspecified; R07.9 Chest pain, unspecified; R20.2 Paresthesia of skin; E66.9 Obesity, unspecified; E78.5 Hyperlipidemia, unspecified; I10 Essential (primary) hypertension; I25.10 Atherosclerotic heart disease of native coronary artery without angina pectoris; E11.9 Type 2 diabetes mellitus without complications; G47.33 Obstructive sleep apnea (adult) (pediatric); K21.9 Gastro-esophageal reflux disease without esophagitis; R13.10 Dysphagia, unspecified; Z95.1 Presence of aortocoronary bypass graft; Z98.61 Coronary angioplasty status; Z79.4 Long term (current) use of insulin; Z68.36 Body mass index [BMI] 36.0-36.9, adult; Z87.891 Personal history of nicotine dependence
CPT/HCPCS: 36415; 70450; 70496; 70498; 71045; 80048; 80061; 80076; 80307; 80320; 81001; 82962; 83036; 83735; 84443; 84484; 85025; 85027; 85610; 85730; 87086; 87088; 92523; 92526; 93005; 94640; 97116; 97166; 97530; 97802; 99285; J7030; A4216; G0480; J3490

== ENCOUNTER 2017-05-18 11:03 | Inpatient (IN) | payer MEDICARE, SELFPAY ==
[2017-05-18] VITALS (16 sets, daily range): BP systolic 138–178; BP diastolic 64–92; PULSE 59–86; RESP 14–24; TEMP 36.1–37.1; O2SAT 96–98; BMI 37.7; BMI 36.7
--- NOTE | 2017-05-18 11:24 | RAD_ITS ---
STUDY: X-RAY CHEST REASON FOR EXAM: Male, 66 years old. Chest pain TECHNIQUE: Single AP portable view of the chest. COMPARISON: Mar 10 2017 7:18pm FINDINGS: The lungs are clear and expanded. There is no demonstrated pleural abnormality. There is moderate cardiac enlargement. Normal mediastinum and cata. There is prominence of the pulmonary hilar arteries without peripheral pulmonary vascular congestion, suggesting pulmonary hypertension. Normal visualized aortic arch and descending thoracic aorta. Normal visualized thoracic spine. There is degenerative osteoarthritis of the bilateral shoulders. There is no demonstrated abnormality of the visualized soft tissue structures of the upper abdomen. RAD/Chest 1 View (Portable) IMPRESSION: Moderate cardiomegaly and possible pulmonary hypertension. Electronically Signed: Sharonda Wagner MD at 11:46 EDT Tel , Service support ,
--- NOTE | 2017-05-18 11:24 | CT_ITS ---
STUDY: CT BRAIN WITHOUT CONTRAST REASON FOR EXAM: Male, 66 years old. EXPRESSIVE APHASIA, DIFFICULTY WALKING/WRITTING, HX OF SAME RADIATION DOSAGE (If Supplied By Facility): CTDIvol = ( 44.99 ) mGy, DLP = ( 829.85 ) mGycm TECHNIQUE: Transaxial CT imaging of the brain was performed without administration of intravenous contrast material. Individualized dose optimization techniques were used for this CT. COMPARISON: None. FINDINGS: Normal soft tissue structures. Normal calvarium. There is mild cerebral atrophy with widening of the extra-axial spaces and ventricular dilatation. There are areas of decreased attenuation within the white matter tracts of the supratentorial brain, consistent with microvascular disease changes. Normal basal ganglia and thalami. Normal brainstem. Normal cerebellum. There is no intracranial hemorrhage. There are no findings of an acute ischemic infarction. Normal visualized paranasal sinuses. CT/Brain/Head without Contrast IMPRESSION: Chronic involutional changes of the brain. Electronically Signed: Sharonda Wagner MD at 12:41 EDT Tel , Service support ,
--- NOTE | 2017-05-18 11:24 | EKG12_ITS ---
Test Reason : CP Blood Pressure : / mmHG Vent. Rate : 060 BPM Atrial Rate : 060 BPM P-R Int : 214 ms QRS Dur : 112 ms QT Int : 454 ms P-R-T Axes : 089 -19 090 degrees QTc Int : 454 ms Atrial-paced rhythm with prolonged AV conduction Abnormal ECG Confirmed by PADILLA GUALLPA, CALI ([id number]), news videotape editor MODESTA FISHMAN ([id number]) on 05/22/2017 1:04:52 PM Referred By: COLT Confirmed By:CALI CAUSEY MD
[2017-05-18 11:55] LABS: Absolute Lymphocyte Count 1.05 X10^3/ul (0.83-4.51); Basophil# 0.01 X10^3/uL; Basophil% 0.2 % (0-1); Eosinophil# 0.09 X10^3/uL; Hematocrit 38.1 % (40-54); Lymphocyte # 1.05 X10^3/ul (4.0); Lymphocyte % 23.3 % (19-41); Mean Corp Hgb Conc 34.1 g/gl (32-36); Mean Corpuscular Hgb 33.4 pg (27.0-32.0); Mean Corpuscular Volume 97.9 fL (80-94); Mean Platelet Vol. 10.3 fl (6.2-12.0); Monocyte# 0.34 X10^3/uL; Monocyte% 7.6 % (0-10); Neutrophil % 66.7 % (47-70); POSITIVE COUNT NO; POSITIVE DIFFERENTIAL NO; POSITIVE MORPHOLOGY NO; Platelet Count 135 K/mm3 (150-450); RBC Distribution Width CV 13.5 % (11.6-14.6); RBC Distribution Width SD 47.5 fl (35.1-43.9); Red Blood Count 3.89 M/mm3 (4.6-6.2); White Blood Count 4.5 K/mm3 (4.4-11.0)
[2017-05-18 12:13] LABS: Anion Gap 7 (5-15); BUN 14 mg/dL (7-18); BUN/Creat Ratio 15.8 RATIO (10-20); Calcium,Total 8.1 mg/dL (8.5-10.1); Chloride 103 mmol/L (98-107); Creatinine, Serum 0.88 mg/dL (0.70-1.30); EST Glomerular Filtration Rate 91 mL/min (>60); Est Glom Filt Rate - Afr Amer 111 mL/min (>60); Estimated Creatinine Clearance 85.26 ml/min; Glucose 211 mg/dL (74-106); Potassium 4.2 mmol/L (3.5-5.1); Sodium Level 139 mmol/L (136-145)
--- NOTE | 2017-05-18 13:05 | ED.RN ---
CALLED [facility] AND LEFT MESSAGE THAT PT NEEDS ADMITTED
[2017-05-18] MEDS: 0.9% Normal Saline 1,000 ML 150 ML IV (14:16)
[2017-05-18] MEDS: Ondansetron 4 MG/2 ML Vial IV (14:16)
[2017-05-18] MEDS: Morphine 4 MG/ML Syringe IV ×2 (14:16→21:11)
--- NOTE | 2017-05-18 14:16 | CASEMGMT ---
Social Work Note SW in to see pt as [facility] and the pt will be admitted. Introduced self and role at [facility]. Begin to ask pt questions and he does not respond, but his who is present responds for him. Reports that she and the pt live in a one story home with 3 steps and no hand rails for entry. DME consists of a walker and cane and pt uses the walker at baseline. Per pt is typically independent with ADLs, but if he is having an off day she assists with personal care needs as needed. Pt is connected with [facility] and does receive [place]. states that the pt drinks, but only occasionally. Denies other substance use. Inquire about mental health history and the states she does not know, but suspects probably. Pt continues to remain silent. PCP is physician through the [place] in [place] and preferred pharmacy is [facility]. Pt does not have a hx of HHC services or SNF utilization and does not anticipate needs at this time. Inform that RN GRAZYNA or SW will follow upon admission and assist with discharge needs if applicable. Candice Seo, [employer], DIRECTOR OF SPECIAL EDUCATION
--- NOTE | 2017-05-18 14:27 | ED.VISSUMM ---
- ER Visit Summary Date of Service: 05/18/17 Chief Complaint: [Chest pain] History of Present Illness: The patient is a 66 M [presents the emergency department with his with complaint of chest discomfort, difficulty speaking and difficulty walking since yesterday. Patient's gives all the history. Patient has had multiple similar episodes like this in the past. Patient's had history of TIAs and has some chronic left-sided weakness from prior stroke. Patient was seen in February in this facility and had a heart catheterization which did not show any significant disease as patient has had prior CABG. Patient also with questionable history of seizure disorder and supposed to be on Keppra however states that she cannot afford the $200 a month for the medication and therefore has not been taking it. On arrival patient is able to nod his head yes and no to questioning. He denies any headache. Patient denies abdominal pain. Rates his chest pain an 8 out of 10. states that normally he embolized with a walker but having a hard time walking today. Denies recent illness.] Physical Examination: [HEENT-PERRLA, EOMI. Cranial nerves II through XII grossly intact. TMs clear. Mucous membranes moist. No adenopathy. Cardiovascular-regular rate and rhythm without murmur or ectopy Lungs-clear to auscultation, chest wall stable without crepitus or subcu emphysema Abdomen-normoactive bowel sounds, soft, nontender, no rebound or rigidity, no peritoneal signs. Neuro [id number] and heel minaya testing within normal limits, mild weakness left lower extremity compared to right lower extremity however patient able to lift leg off bed. Patient has an expressive aphasia. Extremities-intact ?4, normal range of motion, normal pulses, atraumatic] Test Results: [CT scan of the brain without contrast was unremarkable. Chest x-ray showed cardiomegaly and questionable pulmonary hypertension. EKG showed a sinus rhythm with a ventricular rate of 60 bpm with no acute ST segment changes. CBC with differential showed a white count of 4.5, heme globin 13, hematocrit 38, platelets 135. Chemistries were unremarkable. Troponin was less than 0.02 and his d-dimer is normal 0.40.] Emergency Department Course and Treatment: [She was medicated with morphine and Zofran.] Treatment Plan: [[facility] and they asked that we admit patient to our facility at this time. My suspicion is that chest pain is likely noncardiac given a recent heart catheterization and workup in the emergency department. It is unclear the etiology of his generalized weakness and difficulty ambulating as well as the difficulty speaking at this time. Patient is not a TPA candidate as symptoms started last evening. I am not convinced patient having a stroke due to the fact that he has had multiple similar episodes like this in the past that typically resolve after a few days. I cannot rule out atypical seizure versus somatoform disorder.] Disposition: [Admit] Impression: [Mental status change Chest pain] This note was generated with [employer] dictation software. It may contain incorrect words, spelling, and punctuation that were not noted in review of the chart prior to signing ED Disposition - Plan for ED Patient: Chief Complaint: Chest Pain Referrals: [facility] [Primary Care Provider] -
--- NOTE | 2017-05-18 14:31 | ED.DCSUM_ITS ---
- ER Visit Summary Date of Service: 05/18/17 Chief Complaint: [Chest pain] History of Present Illness: The patient is a 66 M [presents the emergency department with his with complaint of chest discomfort, difficulty speaking and difficulty walking since yesterday. Patient's gives all the history. Patient has had multiple similar episodes like this in the past. Patient's had history of TIAs and has some chronic left-sided weakness from prior stroke. Patient was seen in February in this facility and had a heart catheterization which did not show any significant disease as patient has had prior CABG. Patient also with questionable history of seizure disorder and supposed to be on Keppra however states that she cannot afford the $200 a month for the medication and therefore has not been taking it. On arrival patient is able to nod his head yes and no to questioning. He denies any headache. Patient denies abdominal pain. Rates his chest pain an 8 out of 10. states that normally he embolized with a walker but having a hard time walking today. Denies recent illness.] Physical Examination: [HEENT-PERRLA, EOMI. Cranial nerves II through XII grossly intact. TMs clear. Mucous membranes moist. No adenopathy. Cardiovascular-regular rate and rhythm without murmur or ectopy Lungs-clear to auscultation, chest wall stable without crepitus or subcu emphysema Abdomen-normoactive bowel sounds, soft, nontender, no rebound or rigidity, no peritoneal signs. Neuro gxeq-[id number] and heel minaya testing within normal limits, mild weakness left lower extremity compared to right lower extremity however patient able to lift leg off bed. Patient has an expressive aphasia. Extremities-intact ?4, normal range of motion, normal pulses, atraumatic] Test Results: [CT scan of the brain without contrast was unremarkable. Chest x- ray showed cardiomegaly and questionable pulmonary hypertension. EKG showed a sinus rhythm with a ventricular rate of 60 bpm with no acute ST segment changes. CBC with differential showed a white count of 4.5, heme globin 13, hematocrit 38, platelets 135. Chemistries were unremarkable. Troponin was less than 0.02 and his d-dimer is normal 0.40.] Emergency Department Course and Treatment: [She was medicated with morphine and Zofran.] Treatment Plan: [[facility] and they asked that we admit patient to our facility at this time. My suspicion is that chest pain is likely noncardiac given a recent heart catheterization and workup in the emergency department. It is unclear the etiology of his generalized weakness and difficulty ambulating as well as the difficulty speaking at this time. Patient is not a TPA candidate as symptoms started last evening. I am not convinced patient having a stroke due to the fact that he has had multiple similar episodes like this in the past that typically resolve after a few days. I cannot rule out atypical seizure versus somatoform disorder.] Disposition: [Admit] Impression: [Mental status change Chest pain] This note was generated with [employer] dictation software. It may contain incorrect words, spelling, and punctuation that were not noted in review of the chart prior to signing ED Disposition - Plan for ED Patient: Chief Complaint: Chest Pain Referrals: [facility] [Primary Care Provider] -
--- NOTE | 2017-05-18 14:34 | PCM.HP.STD ---
Problem List (1) Aphasia Status: Acute (2) Obesity Status: Chronic Qualifiers: Obesity type: due to excess calories (3) Pacemaker Status: Chronic Comment: 2002 (4) Weakness of limb Status: Chronic Comment: Left-sided weakness, chronic (5) Chronic respiratory failure Status: Chronic Qualifiers: Comment: baseline 3L continuously (6) CAD (coronary artery disease) Status: Chronic Qualifiers: Coronary Disease-Associated Artery/Lesion type: [place] artery [place] vs. transplanted heart: [place] heart Associated angina: without angina Qualified Code(s): I25.10 - Atherosclerotic heart disease of [place] coronary artery without angina pectoris Comment: Cardiac catheterization 02/24/2017normal LV size should not, EF 55%, [place] multivessel CAD, patent SVG to diagonal 1, OM 2, and RCA, MASON to LAD previously reported as atretic/nonfunctional (not reevaluated at that time), advised medical therapy (7) DM type 2 (diabetes mellitus, type 2) Status: Chronic Qualifiers: Diabetes mellitus senior care insulin use: with senior care use (8) Obstructive sleep apnea Status: Chronic (9) Seizure Status: Chronic Qualifiers: (10) S/P CABG (coronary artery bypass graft) Status: Chronic (11) S/P PTCA (percutaneous transluminal coronary angioplasty) Status: Chronic (12) CVA (cerebral vascular accident) Status: Chronic Qualifiers: Comment: Residual left-sided weakness History of Present Illness Date of Admission: 05/18/17 Chief Complaint: aphasia The patient is a 66 year old M history of hypertension, hyperlipidemia, CAD status post CABG, permanent pacemaker, diabetes mellitus type 2 on insulin therapy, obesity, chronic hypoxemic respiratory failure on chronic home O2, EKATERINA on CPAP, possible seizure disorder who presented to the ED with 24 hours of aphasia and L sided weakness/gait abnormality The patient has a long-standing history of recurrent spells, stereotypically these will include a speech difficulty, with weakness and gait abnormality. The patient's reported they were working in the garden all day Thursday. He did not sleep well Thursday night. His symptoms developed on Thursday morning, and were typical of his previous spells. He was last admitted for similar symptoms 03/10/2017 through 03/13/2017 . TIA/CVA was excluded. He ruled out for ACS . The patient was seen in consultation by neurology services who felt there was a psychological component or conversion disorder. The patient was advised SSRI (Lexapro) and Keppra 500 mg BID and to follow-up with neurology and [facility] psychiatrist. He was seen by speech therapy and discharged on pur?ed diet/mechanical soft. He did not fill the Keppra due to cost at the commercial pharmacy. He did not follow up with [facility] physician (Dr. Grimm) to determine if Keppra could be approved /obtained under his [facility] prescription benefit service. The patient complaints of atypical chest pain without associated symptoms, vague in his description. Otherwise, no history of fevers chills nausea vomiting diarrhea, GI or symptoms. ED evaluation: Afebrile, heart rate 60 regular, BP 166/70, 97% on chronic 3 L Laboratories to include CBC, d-dimer, comprehensive chemistries are acceptable, with noted random glucose 211, hemoglobin 13.0, negative initial troponin Head CT reveals cerebral atrophy and chronic microvascular changes, but no acute changes X-ray reveals moderate cardiomegaly and possible pulmonary hypertension, no infiltrate or effusion EKG reveals atrial pacing at 60 ED course: Saline at 150 ML's per hour, morphine 4 mg IV ?1 for complaint of back pain, Zofran 4 mg IV ?1 The emergency room physician kindly spoke with the [facility]; apparently no bed available at [facility], patient will be observed here On seeing the patient, he is in no acute distress, and had no expressive aphasia initially but rather was whispering appropriate answers to questions and forming words normally . [] Past Medical History Past Medical History (Chronic Problems): Chronic Problems Hyperlipidemia (Chronic) Hypertension (Chronic) Obesity (Chronic) Pacemaker (Chronic) 2001 Weakness of limb (Chronic) Left-sided weakness, chronic Chronic respiratory failure (Chronic) baseline 3L continuously CAD (coronary artery disease) (Chronic) Cardiac catheterization 02/24/2017normal LV size should not, EF 55%, [place] multivessel CAD, patent SVG to diagonal 1, OM 2, and RCA, MASON to LAD previously reported as atretic/nonfunctional (not reevaluated at that time), advised medical therapy DM type 2 (diabetes mellitus, type 2) (Chronic) History of smoking (Chronic) Obstructive sleep apnea (Chronic) Seizure (Chronic) left sided tingling left body (Chronic) S/P CABG (coronary artery bypass graft) (Chronic) S/P PTCA (percutaneous transluminal coronary angioplasty) (Chronic) CVA (cerebral vascular accident) (Chronic) Residual left-sided weakness Allergies ezetimibe Allergy (Verified 05/18/17 11:05) Unknown Fish Containing Products Allergy (Verified 05/18/17 11:05) Unknown glyburide Allergy (Verified 05/18/17 11:05) Unknown lisinopril Allergy (Verified 05/18/17 11:05) Unknown metoprolol Allergy (Verified 05/18/17 11:05) Unknown simvastatin Allergy (Verified 05/18/17 11:05) Unknown Home Medications: Ambulatory Orders Medication Instructions Recorded Atenolol [Tenormin (beta theron)] 100 mg PO DAILY 08/09/16 Atorvastatin Calcium [Lipitor] 80 mg PO QHS 08/09/16 Cholecalciferol (Vitamin D3) 3,000 unit PO DAILY 08/09/16 [D3-2000] Finasteride [Proscar] 5 mg PO DAILY 08/09/16 Furosemide [Lasix] 20 mg PO DAILY 08/09/16 Insulin U-500 [Humulin R U-500 125 units SC LUNCH 08/09/16 ([facility])] Insulin U-500 [Humulin R U-500 140 unit SC DINNER 08/09/16 ([facility])] Insulin U-500 [Humulin R U-500 175 units SC BREAKFAST 08/09/16 ([facility])] Multivitamin with Minerals/Lut 1 each PO DAILY 08/09/16 [Pub Multivitamin 50 Plus Tab] Pantoprazole Sodium [Protonix] 40 mg PO BID 08/09/16 Tamsulosin HCl [Flomax] 0.8 mg PO QHS 08/09/16 Clopidogrel Bisulfate [Clopidogrel] 75 mg PO DAILY 12/25/16 Isosorbide Dinitrate 40 mg PO TID 01/26/17 Alprostadil [Caverject] 20 mcg IC X1 PRN 02/22/17 Dextrose [Glucose] 4 gm PO X1 PRN 02/22/17 Ketoconazole 1 applicatio TOPICAL DAILY 02/22/17 Menthol [Icy Hot] 1 applicatio TP TID PRN 02/22/17 Guaifenesin 100 mg PO Q6H PRN 05/18/17 Surgical History: angioplasty, coronary bypass surgery, pacemaker implantation, - - cabg,cholecystectemy, hernia, left knee, 4 stents Psychiatric History: No pertinent psych hx, - - possible conversion disorder anxiety Smoking Status: Former smoker - *Family History Maternal History Items: Heart Disease Paternal History Items: Unknown Review of Systems Neurological: Reports: Change in Speech, - - gait abnormality Psychiatric: Reports: Anxiety VTE Information - Inpt Only VTE Present on Admission: No VTE Mechan Device Prophylaxis: SCD's VTE Pharm Prophylaxis ordered?: Yes - Physical Exam General: Alert, Cooperative, No apparent distress HEENT: PERRLA, EOMI Oral: Moist Mucosa Neck: No JVD, Negative Carotid Bruits Lungs: Clear to auscultation, Normal air movement, No rhonchi, No wheeze Cardiovascular: Regular rate, Regular Rhythm, Normal S1, Normal S2, - - device present L chest wall Abdomen: Bowel Sounds Present, Soft, Non Tender, - - obese soft Extremities: No cyanosis, No edema, Peripheral Pulses Normal Musculoskeletal: No Muscle Wasting Neurological: - - Baseline left lower greater than left upper extremity motor weaknessdecreased sensation to light touch, pupils equal round reactive, extraocular muscles full, smile symmetric, tongue midline, ?voluntary aphasia; gait not tested Vital Signs Temp Pulse Resp BP Pulse Ox 97.0 F L 60 21 H 178/92 H 97 05/18/17 11:05 05/18/17 14:17 05/18/17 14:17 05/18/17 14:17 05/18/17 14:17 Oxygen Flow Rate (L/min) 3 Oxygen Delivery Method Nasal Cannula Weight: 263 lb Body Mass Index (BMI) 37.7 Finger Stick Blood Glucose 262 Laboratory Tests Past 24 Hrs 05/18/17 05/18/17 05/18/17 11:40 11:40 11:40 WBC 4.5 RBC 3.89 L Hgb 13.0 Hct 38.1 L MCV 97.9 H MCH 33.4 H MCHC 34.1 RDW 13.5 RDW Differential 47.5 H Plt Count 135 L MPV 10.3 Immature Gran % (Auto) 0.200 Neut % (Auto) 66.7 Lymph % (Auto) 23.3 [place] % (Auto) 7.6 Eos % (Auto) 2.0 Baso % (Auto) 0.2 Absolute Neuts (auto) 3.0 Absolute Lymphs (auto) 1.05 Total Counted Not Reportable D-Dimer Quant (PE/DVT) 0.40 Sodium 139 Potassium 4.2 Chloride 103 Carbon Dioxide 29.0 Anion Gap 7 BUN 14 Creatinine 0.88 Estim Creat Clear Calc 85.26 Est GFR (MDRD) Af Amer 111 Est GFR (MDRD) Non-Af 91 BUN/Creatinine Ratio 15.8 Glucose 211 H Calcium 8.1 L Troponin I < 0.02 Assessment/Plan 66-year-old gentleman with past medical history of hypertension, hyperlipidemia, morbid obesity, chronic hypoxemic respiratory failure on chronic home O2 3 L, EKATERINA on CPAP 12, 2 L O2 bleed in, DM 2 on insulin, CAD status post CABG with prior cardiac cath 02/2017 patent grafts medical management advised, presents with atypical chest pain in the setting of recurrent stereotypical spell. Symptoms are similar to prior presentation, onset 24 hours ago, consisting of subjective garbled speech, L sided weakness, and inability to walk. Patient reports normal ambulation is rollator and also has motorized scooter. Patient admitted for similar symptoms 03/10/[address] times 2 were unrevealing for acute change, chest x-ray revealed stable cardiomegaly and central pulmonary vascular prominence, and CTA of head and neck were unrevealing for intra-or extracranial stenoses. Patient was seen in neurology consultation at that time with assessment of recurrent sterotypical spells of left-sided weakness, associated with language deficits; with extensive workup with multiple spells over the past decade including extended 72 hour EEG; it was suspected there may be a nonphysiologic component. SSRI and Keppra were advised. Patient presenting with similar symptoms today, head CT without acute change. He is noted on Plavix and statin 1. Recurrent stereotypical spell (left-sided weakness, gait abnormality, language deficit ). TIA less likely PLAN: telemetry monitoring neuro checks continue Plavix and statin Start Keppra 500 mg twice daily (was unable to afford prior provided commercial prescription; did not discuss with [facility] provider) Neurology opinion PT, OT, [employer] evaluation 2. atypical chest pain --EKG without ischemic changes, will cycle serial CE, continue medical mgmt 3.DVT prophylaxis SCDs, subcu heparin 5000 units twice daily Chronic Issues: 1. CAD, s/p CABG -cardiac catheterization 02/2017 revealed patent grafts, preserved LV function 55%, medical management advised 2. DM 2 on insulin --continue home insulin regimen, SS mild moderate AC/HS 3. Chronic hypoxemic respiratory failure on chronic home O2 3 liters 4. Obesity 5. EKATERINA on CPAP 12; 2 L O2 bleed in 6. Hypertension -continue home medications; permissive HTN 7. Hyperlipidemia on statin Code Visit Inpatient E&M: 47101 Init Hosp L2 OBSV E&M: 51005 Initial observation care L2
--- NOTE | 2017-05-18 14:49 | HP.PCM_ITS ---
Problem List (1) Aphasia Status: Acute (2) Obesity Status: Chronic Qualifiers: Obesity type: due to excess calories (3) Pacemaker Status: Chronic Comment: 2002 (4) Weakness of limb Status: Chronic Comment: Left-sided weakness, chronic (5) Chronic respiratory failure Status: Chronic Qualifiers: Comment: baseline 3L continuously (6) CAD (coronary artery disease) Status: Chronic Qualifiers: Coronary Disease-Associated Artery/Lesion type: [place] artery [place] vs. 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 insulin use: with chcf use (8) Obstructive sleep apnea Status: Chronic (9) Seizure Status: Chronic Qualifiers: (10) S/P CABG (coronary artery bypass graft) Status: Chronic (11) S/P PTCA (percutaneous transluminal coronary angioplasty) Status: Chronic (12) CVA (cerebral vascular accident) Status: Chronic Qualifiers: Comment: Residual left-sided weakness History of Present Illness Date of Admission: 05/18/17 Chief Complaint: aphasia The patient is a 66 year old M history of hypertension, hyperlipidemia, CAD status post CABG, permanent pacemaker, diabetes mellitus type 2 on insulin therapy, obesity, chronic hypoxemic respiratory failure on chronic home O2, EKATERINA on CPAP, possible seizure disorder who presented to the ED with 24 hours of aphasia and L sided weakness/gait abnormality The patient has a long-standing history of recurrent spells, stereotypically these will include a speech difficulty, with weakness and gait abnormality. The patient's reported they were working in the garden all day Thursday. He did not sleep well Thursday night. His symptoms developed on Thursday morning , and were typical of his previous spells. He was last admitted for similar symptoms 03/10/2017 through 03/13/2017 . TIA/ CVA was excluded. He ruled out for ACS . The patient was seen in consultation by neurology services who felt there was a psychological component or conversion disorder. The patient was advised SSRI (Lexapro) and Keppra 500 mg BID and to follow-up with neurology and [facility] psychiatrist. He was seen by speech therapy and discharged on pur?ed diet/mechanical soft. He did not fill the Keppra due to cost at the commercial pharmacy. He did not follow up with [facility] physician (Dr. Grimm) to determine if Keppra could be approved /obtained under his [facility] prescription benefit service. The patient complaints of atypical chest pain without associated symptoms, vague in his description. Otherwise, no history of fevers chills nausea vomiting diarrhea, GI or symptoms. ED evaluation: Afebrile, heart rate 60 regular, BP 166/70, 97% on chronic 3 L Laboratories to include CBC, d-dimer, comprehensive chemistries are acceptable, with noted random glucose 211, hemoglobin 13.0, negative initial troponin Head CT reveals cerebral atrophy and chronic microvascular changes, but no acute changes X-ray reveals moderate cardiomegaly and possible pulmonary hypertension, no infiltrate or effusion EKG reveals atrial pacing at 60 ED course: Saline at 150 ML's per hour, morphine 4 mg IV ?1 for complaint of back pain, Zofran 4 mg IV ?1 The emergency room physician kindly spoke with the [facility] services; apparently no bed available at [facility], patient will be observed here On seeing the patient, he is in no acute distress, and had no expressive aphasia initially but rather was whispering appropriate answers to questions and forming words normally . [] Past Medical History Past Medical History (Chronic Problems): Chronic Problems Hyperlipidemia (Chronic) Hypertension (Chronic) Obesity (Chronic) Pacemaker (Chronic) 2001 Weakness of limb (Chronic) Left-sided weakness, chronic Chronic respiratory failure (Chronic) baseline 3L continuously CAD (coronary artery disease) (Chronic) Cardiac catheterization 02/24/2017?normal LV size should not, EF 55%, [place] multivessel CAD, patent SVG to diagonal 1, OM 2, and RCA, MASON to LAD previously reported as atretic/nonfunctional (not reevaluated at that time), advised medical therapy DM type 2 (diabetes mellitus, type 2) (Chronic) History of smoking (Chronic) Obstructive sleep apnea (Chronic) Seizure (Chronic) left sided tingling left body (Chronic) S/P CABG (coronary artery bypass graft) (Chronic) S/P PTCA (percutaneous transluminal coronary angioplasty) (Chronic) CVA (cerebral vascular accident) (Chronic) Residual left-sided weakness Allergies ezetimibe Allergy (Verified 05/18/17 11:05) Unknown Fish Containing Products Allergy (Verified 05/18/17 11:05) Unknown glyburide Allergy (Verified 05/18/17 11:05) Unknown lisinopril Allergy (Verified 05/18/17 11:05) Unknown metoprolol Allergy (Verified 05/18/17 11:05) Unknown simvastatin Allergy (Verified 05/18/17 11:05) Unknown Home Medications: Ambulatory Orders Medication Instructions Recorded Atenolol [Tenormin (beta theron)] 100 mg PO DAILY 08/09/16 Atorvastatin Calcium [Lipitor] 80 mg PO QHS 08/09/16 Cholecalciferol (Vitamin D3) 3,000 unit PO DAILY 08/09/16 [D3-2000] Finasteride [Proscar] 5 mg PO DAILY 08/09/16 Furosemide [Lasix] 20 mg PO DAILY 08/09/16 Insulin U-500 [Humulin R U-500 125 units SC LUNCH 08/09/16 ([facility])] Insulin U-500 [Humulin R U-500 140 unit SC DINNER 08/09/16 ([facility])] Insulin U-500 [Humulin R U-500 175 units SC BREAKFAST 08/09/16 ([facility])] Multivitamin with Minerals/Lut 1 each PO DAILY 08/09/16 [Pub Multivitamin 50 Plus Tab] Pantoprazole Sodium [Protonix] 40 mg PO BID 08/09/16 Tamsulosin HCl [Flomax] 0.8 mg PO QHS 08/09/16 Clopidogrel Bisulfate [Clopidogrel] 75 mg PO DAILY 12/25/16 Isosorbide Dinitrate 40 mg PO TID 01/26/17 Alprostadil [Caverject] 20 mcg IC X1 PRN 02/22/17 Dextrose [Glucose] 4 gm PO X1 PRN 02/22/17 Ketoconazole 1 applicatio TOPICAL DAILY 02/22/17 Menthol [Icy Hot] 1 applicatio TP TID PRN 02/22/17 Guaifenesin 100 mg PO Q6H PRN 05/18/17 Surgical History: angioplasty, coronary bypass surgery, pacemaker implantation, - - cabg,cholecystectemy, hernia, left knee, 4 stents Psychiatric History: No pertinent psych hx, - - possible conversion disorder anxiety Smoking Status: Former smoker - *Family History Maternal History Items: Heart Disease Paternal History Items: Unknown Review of Systems Neurological: Reports: Change in Speech, - - gait abnormality Psychiatric: Reports: Anxiety VTE Information - Inpt Only VTE Present on Admission: No VTE Mechan Device Prophylaxis: SCD's VTE Pharm Prophylaxis ordered?: Yes - Physical Exam General: Alert, Cooperative, No apparent distress HEENT: PERRLA, EOMI Oral: Moist Mucosa Neck: No JVD, Negative Carotid Bruits Lungs: Clear to auscultation, Normal air movement, No rhonchi, No wheeze Cardiovascular: Regular rate, Regular Rhythm, Normal S1, Normal S2, - - device present L chest wall Abdomen: Bowel Sounds Present, Soft, Non Tender, - - obese soft Extremities: No cyanosis, No edema, Peripheral Pulses Normal Musculoskeletal: No Muscle Wasting Neurological: - - Baseline left lower greater than left upper extremity motor weakness?decreased sensation to light touch, pupils equal round reactive, extraocular muscles full, smile symmetric, tongue midline, ?voluntary aphasia; gait not tested Vital Signs Temp Pulse Resp BP Pulse Ox 97.0 F L 60 21 H 178/92 H 97 05/18/17 11:05 05/18/17 14:17 05/18/17 14:17 05/18/17 14:17 05/18/17 14:17 Oxygen Flow Rate (L/min) 3 Oxygen Delivery Method Nasal Cannula Weight: 263 lb Body Mass Index (BMI) 37.7 Finger Stick Blood Glucose 262 Laboratory Tests Past 24 Hrs 05/18/17 05/18/17 05/18/17 11:40 11:40 11:40 WBC 4.5 RBC 3.89 L Hgb 13.0 Hct 38.1 L MCV 97.9 H MCH 33.4 H MCHC 34.1 RDW 13.5 RDW Differential 47.5 H Plt Count 135 L MPV 10.3 Immature Gran % (Auto) 0.200 Neut % (Auto) 66.7 Lymph % (Auto) 23.3 [place] % (Auto) 7.6 Eos % (Auto) 2.0 Baso % (Auto) 0.2 Absolute Neuts (auto) 3.0 Absolute Lymphs (auto) 1.05 Total Counted Not Reportable D-Dimer Quant (PE/DVT) 0.40 Sodium 139 Potassium 4.2 Chloride 103 Carbon Dioxide 29.0 Anion Gap 7 BUN 14 Creatinine 0.88 Estim Creat Clear Calc 85.26 Est GFR (MDRD) Af Amer 111 Est GFR (MDRD) Non-Af 91 BUN/Creatinine Ratio 15.8 Glucose 211 H Calcium 8.1 L Troponin I < 0.02 Assessment/Plan 66-year-old gentleman with past medical history of hypertension, hyperlipidemia , morbid obesity, chronic hypoxemic respiratory failure on chronic home O2 3 L, EKATERINA on CPAP 12, 2 L O2 bleed in, DM 2 on insulin, CAD status post CABG with prior cardiac cath 02/2017 patent grafts medical management advised, presents with atypical chest pain in the setting of recurrent stereotypical spell. Symptoms are similar to prior presentation, onset 24 hours ago, consisting of subjective garbled speech, L sided weakness, and inability to walk. Patient reports normal ambulation is rollator and also has motorized scooter. Patient admitted for similar symptoms 03/10/2017 at [address] head CT times 2 were unrevealing for acute change, chest x-ray revealed stable cardiomegaly and central pulmonary vascular prominence, and CTA of head and neck were unrevealing for intra-or extracranial stenoses. Patient was seen in neurology consultation at that time with assessment of recurrent sterotypical spells of left-sided weakness, associated with language deficits; with extensive workup with multiple spells over the past decade including extended 72 hour EEG; it was suspected there may be a nonphysiologic component. SSRI and Keppra were advised. Patient presenting with similar symptoms today, head CT without acute change. He is noted on Plavix and statin 1. Recurrent stereotypical spell (left-sided weakness, gait abnormality, language deficit ). TIA less likely PLAN: telemetry monitoring neuro checks continue Plavix and statin Start Keppra 500 mg twice daily (was unable to afford prior provided commercial prescription; did not discuss with his [facility] provider) Neurology opinion PT, OT, VENEREAL DISEASE CONTROL HEAD evaluation 2. atypical chest pain --EKG without ischemic changes, will cycle serial CE, continue medical mgmt 3.DVT prophylaxis SCDs, subcu heparin 5000 units twice daily Chronic Issues: 1. CAD, s/p CABG -cardiac catheterization 02/2017 revealed patent grafts, preserved LV function 55%, medical management advised 2. DM 2 on insulin --continue home insulin regimen, SS mild moderate AC/HS 3. Chronic hypoxemic respiratory failure on chronic home O2 3 liters 4. Obesity 5. EKATERINA on CPAP 12; 2 L O2 bleed in 6. Hypertension -continue home medications; permissive HTN 7. Hyperlipidemia on statin Code Visit Inpatient E&M: 58580 Init Hosp L2 OBSV E&M: 35455 Initial observation care L2
[2017-05-18 17:11] LABS: Bedside Glucose 168 mg/dL (70-110)
[2017-05-18] MEDS: oxyCODONE 5 MG Tablet PO (20:06)
--- NOTE | 2017-05-18 20:09 | NURSING ---
Pt c/o 08/25 CP. Nitro given x1. No relief with Nitro. Pt does not want more Nitro. Giving Oxyir at this time. Will continue to monitor. STAT EKG did not show anything new.
[2017-05-18] MEDS: Tamsulosin HCl 0.4 MG Capsule 0.8 MG PO (21:18)
[2017-05-18] MEDS: Isosorbide DN 20 MG Tablet 40 MG PO (21:19)
[2017-05-18] MEDS: levETIRAcetam 500 MG Tablet PO (21:19)
[2017-05-18] MEDS: Atorvastatin Calcium 80 MG Tablet PO (21:20)
[2017-05-18] MEDS: Pantoprazole Sodium 40 MG Tablet PO (21:21)
--- NOTE | 2017-05-18 21:30 | EKG12_ITS ---
Test Reason : CP Blood Pressure : / mmHG Vent. Rate : 066 BPM Atrial Rate : 066 BPM P-R Int : 156 ms QRS Dur : 118 ms QT Int : 452 ms P-R-T Axes : 039 -33 081 degrees QTc Int : 473 ms Normal sinus rhythm Left axis deviation Nonspecific ST and T wave abnormality Abnormal ECG When compared with ECG of 18-MAY-2017 11:13, MANUAL COMPARISON REQUIRED, DATA IS UNCONFIRMED Confirmed by PADILLA GUALLPA, CALI ([id number]), advertising editor MODESTA FISHMAN ([id number]) on 05/22/2017 1:09:51 PM Referred By: DR BETANCOURT Confirmed By:CALI CAUSEY MD
[2017-05-18 22:31] LABS: Bedside Glucose 212 mg/dL (70-110)
[2017-05-19] VITALS (19 sets, daily range): BP systolic 90–139; BP diastolic 39–88; PULSE 60–87; RESP 13–23; TEMP 36.8–37.5; O2SAT 2–98
[2017-05-19 03:42] LABS: Cholesterol 104 mg/dL (200); High Density Lipoprotein 34 mg/dL; Triglycerides 212 mg/dL; Very Low Density Lipoprotein 42 mg/dL (5-40)
--- NOTE | 2017-05-19 04:30 | EKG12_ITS ---
Test Reason : CP Blood Pressure : / mmHG Vent. Rate : 080 BPM Atrial Rate : 080 BPM P-R Int : 156 ms QRS Dur : 114 ms QT Int : 422 ms P-R-T Axes : 040 -31 088 degrees QTc Int : 486 ms Normal sinus rhythm Left axis deviation Inferior infarct , age undetermined Abnormal ECG When compared with ECG of 18-MAY-2017 19:34, MANUAL COMPARISON REQUIRED, DATA IS UNCONFIRMED Confirmed by PADILLA GUALLPA, CALI ([id number]), art editor MODESTA FISHMAN ([id number]) on 05/22/2017 1:09:18 PM Referred By: DR DEJESUS Confirmed By:CALI CAUSEY MD
--- NOTE | 2017-05-19 06:26 | CT_ITS ---
STUDY: CT BRAIN WITHOUT CONTRAST REASON FOR EXAM: Male, 66 years old. CHANGE MENTAL STATUS, UNRESPONSIVE RADIATION DOSAGE (If Supplied By Facility): CTDIvol = ( 44.99 ) mGy, DLP = ( 829.85 ) mGycm TECHNIQUE: Transaxial CT imaging of the brain was performed without administration of intravenous contrast material. Individualized dose optimization techniques were used for this CT. COMPARISON: None. FINDINGS: Normal soft tissue structures. Normal calvarium. There is mild cerebral atrophy with widening of the extra-axial spaces and ventricular dilatation. There are areas of decreased attenuation within the white matter tracts of the supratentorial brain, consistent with microvascular disease changes. Normal basal ganglia and thalami. Normal brainstem. Normal cerebellum. There is no intracranial hemorrhage. There are no findings of an acute ischemic infarction. Normal visualized paranasal sinuses. CT/Brain/Head without Contrast IMPRESSION: Chronic involutional changes of the brain. Electronically Signed: Sharonda Wagner MD at 7:15 EDT Tel , Service support ,
[2017-05-19 06:41] LABS: Allen Test POS; Base Excess 6 mmol/L (-2 to +2); Bicarbonate 30.7 mmol/L (22-26); Blood Gas Specimen Type ART; O2 Delivery Device Nasal Can; PO2 71 mmHG (75-100); SITE L Radial; SO2 94 % (95-99); Time Given 645; Total Carbon Dioxide 32 mmol/L; pCO2 47.2 mmHg (35-45); pH 7.42 (7.35-7.45)
--- NOTE | 2017-05-19 06:42 | PCM.PN.HOSP ---
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 He did not move to sternal rub. Blood sugar wnl, blood pressure wnl, spo2 >90% Last time seen normal was 1 hour prior CBC,BMP, Mg and Phos ordered. Stat CT head non contrast ordered Pt transferred to ICU Vitals/I&O's: Vital Signs Temp Pulse Resp BP Pulse Ox 98.5 F 77 20 H 113/60 97 05/19/17 04:20 05/19/17 04:20 05/19/17 04:20 05/19/17 04:20 05/19/17 04:20 Oxygen Flow Rate (L/min) 3.5 Oxygen Delivery Method CPAP Weight: 256 lb 13.416 oz Body Mass Index (BMI) 36.7 Intake and Output for Last 24 Hours 05/17/17 05/18/17 05/19/17 23:59 23:59 23:59 Intake Total 790 / 790 Output Total 180 / 180 Balance 610 / 610 General: - - unresponsive HEENT: Sluggish Pupils Lungs: Clear to auscultation Cardiovascular: Regular rate, Normal S1, Normal S2, No murmurs Abdomen: Bowel Sounds Present, Obese Skin: No rashes Neurological: - - unable to follow any command Laboratory Results 05/18/17 16:35: Troponin I < 0.02 05/18/17 17:04: POC Glucose 168 H 05/18/17 20:59: Troponin I < 0.02 05/18/17 21:17: POC Glucose 212 H 05/19/17 02:24: Triglycerides 212 H, Cholesterol 104, LDL Cholesterol 28, VLDL Cholesterol 42 H, HDL Cholesterol 34 L 05/19/17 02:24: Troponin I < 0.02 05/19/17 06:30: WBC Pending, RBC Pending, Hgb Pending, Hct Pending, MCV Pending, MCH Pending, MCHC Pending, RDW Pending, RDW Differential Pending, Plt Count Pending, Neut % (Auto) Pending, Absolute Neuts (auto) Pending, Total Counted Pending 05/19/17 06:30: Sodium Pending, Potassium Pending, Chloride Pending, Carbon Dioxide Pending, Anion Gap Pending, BUN Pending, Creatinine Pending, Est GFR (MDRD) Af Amer Pending, Est GFR (MDRD) Non-Af Pending, BUN/Creatinine Ratio Pending, Glucose Pending, Calcium Pending, Magnesium Pending 05/19/17 06:33: Specimen Type ART, Sample Site L Radial, pH 7.42, Bicarbonate Actual 30.7 H, POC Total CO2 32, Base Excess 6 H, O2 Saturation 94 L, ABG pCO2 47.2 H, ABG pO2 71 L, Stefano Test POS, O2 Delivery Device Nasal Can, Liter Flow 3.0, Blood Gas Notified Whom HOSP , Blood Gas Notified Time 645 Current Medications Acetaminophen (Tylenol) 650 mg PO Q4H PRN PRN PRN Reason: Headache or Temp>100.5F Al Hydroxide/Mg Hydroxide (Mylanta Ii) 30 ml PO Q6H PRN PRN PRN Reason: Gastric burning Albuterol Sulfate (Ventolin Aerosols) 2.5 mg INHALATION Q4H.RT PRN PRN Reason: WHEEZING Atenolol (Tenormin (Beta Sophy)) 100 mg PO DAILY [facility] Atorvastatin Calcium (Lipitor) 80 mg PO QHS [facility] Last Admin: 05/18/17 21:20 Dose: 80 mg Clopidogrel Bisulfate (Plavix) 75 mg PO DAILY [facility] Dextrose (D50w Syringe) 0 gm IV X1 PRN; Protocol PRN Reason: Hypoglycemia Docusate Sodium (Colace) 100 mg PO BID PRN PRN Reason: Constipation Finasteride (Proscar) 5 mg PO DAILY [facility] Furosemide (Lasix) 20 mg PO DAILY [facility] Glucagon () 1 mg IM .X1 PRN PRN Reason: Hypoglycemia Guaifenesin (Robitussin) 5 ml PO Q6H PRN PRN Reason: CONGESTION Heparin Sodium (Beef Lung) (Heparin 500 Unit/5 Ml (100/Ml)) 500 unit IV UD PRN PRN Reason: HEPARIN FLUSH Heparin Sodium (Porcine) (Heparin Na) 5,000 unit SC BID [facility] Last Admin: 05/18/17 21:19 Dose: Not Given Insulin Aspart (Novolog Flexpen ([facility])) 0 units SC ACHS [facility] PRN Reason: Protocol Last Admin: 05/18/17 21:20 Dose: 2 units Insulin Human Regular (Humulin R U-500 ([facility])) 0.25 ml SC LUNCH [facility] Insulin Human Regular (Humulin R U-500 ([facility])) 0.28 ml SC DINNER [facility] Last Admin: 05/18/17 18:48 Dose: 0.28 ml Insulin Human Regular (Humulin R U-500 (Bk)) 0.35 ml SC BREAKFAST [facility] Isosorbide Dinitrate (Isordil) 40 mg PO TID [facility] Last Admin: 05/18/17 21:19 Dose: 40 mg Levetiracetam (Keppra Tablet) 500 mg PO BID [facility] Last Admin: 05/18/17 21:19 Dose: 500 mg Magnesium Hydroxide (Milk Of Magnesia) 30 ml PO DAILY PRN PRN PRN Reason: Constipation Menthol (Bengay Vanishing Scent) 1 applic TOPICAL TID PRN PRN PRN Reason: PAIN Multivitamins/Minerals (Multivitamin With Minerals) 1 tablet PO DAILY@0800 [facility] Nitroglycerin (Nitrostat) 0.4 mg SUBLINGUAL Q5M PRN PRN Reason: CHEST PAIN Last Admin: 05/18/17 20:05 Dose: 0.4 mg Ondansetron HCl (Zofran) 4 mg IV Q8H PRN PRN PRN Reason: NAUSEA Oxycodone HCl (Oxyir) 5 mg PO Q4H PRN PRN PRN Reason: MOD-SEVERE PAIN (4-10/10) Last Admin: 05/18/17 20:06 Dose: 5 mg Pantoprazole Sodium (Protonix) 40 mg PO BID [facility] Last Admin: 05/18/17 21:21 Dose: 40 mg Senna/Docusate Sodium (Senokot-S, Kirsten-Colace) 2 tablet PO BID PRN PRN Reason: Constipation Sodium Chloride () 10 ml IV UD PRN PRN Reason: VAD FLUSH Tamsulosin HCl (Flomax) 0.8 mg PO QHS [facility] Last Admin: 05/18/17 21:18 Dose: 0.8 mg Medical Necessity - Tobacco Use Smoking Status: Former smoker Assessment/Plan acute mental status change currently unresponsive hx of seizure DO, chart review shows non compliance with Keppra and possible conversion DO [facility] transfer to [facility] suspect seizure as cause for this acute mental status change will update ICU attending Dr Alvarado
[2017-05-19 06:43] LABS: Absolute Lymphocyte Count 1.17 X10^3/ul (0.83-4.51); Absolute Neutrophil Count 3.3 X10^3/uL (2.0-7.7); Basophil# 0.01 X10^3/uL; Basophil% 0.2 % (0-1); Eosinophil# 0.12 X10^3/uL; Eosinophils% 2.4 % (0-5); Hemoglobin 11.9 g/dl (13.0-16.5); Lymphocyte # 1.17 X10^3/ul (4.0); Lymphocyte % 23.2 % (19-41); Mean Corp Hgb Conc 33.1 g/gl (32-36); Mean Corpuscular Hgb 32.8 pg (27.0-32.0); Mean Corpuscular Volume 99.2 fL (80-94); Mean Platelet Vol. 9.4 fl (6.2-12.0); Monocyte# 0.42 X10^3/uL; Monocyte% 8.3 % (0-10); Neutrophil # 3.32 X10^3/uL (2.7-7.7); Neutrophil % 65.7 % (47-70); POSITIVE COUNT NO; POSITIVE DIFFERENTIAL NO; POSITIVE MORPHOLOGY NO; Platelet Count 123 K/mm3 (150-450); RBC Distribution Width CV 13.9 % (11.6-14.6); RBC Distribution Width SD 48.1 fl (35.1-43.9); Red Blood Count 3.63 M/mm3 (4.6-6.2); White Blood Count 5.1 K/mm3 (4.4-11.0)
[2017-05-19 06:45] LABS: Bedside Glucose 121 mg/dL (70-110)
--- NOTE | 2017-05-19 06:49 | PN_ITS ---
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 He did not move to sternal rub. Blood sugar wnl, blood pressure wnl, spo2 >90% Last time seen normal was 1 hour prior CBC,BMP, Mg and Phos ordered. Stat CT head non contrast ordered Pt transferred to ICU Vitals/I&O's: Vital Signs Temp Pulse Resp BP Pulse Ox 98.5 F 77 20 H 113/60 97 05/19/17 04:20 05/19/17 04:20 05/19/17 04:20 05/19/17 04:20 05/19/17 04:20 Oxygen Flow Rate (L/min) 3.5 Oxygen Delivery Method CPAP Weight: 256 lb 13.416 oz Body Mass Index (BMI) 36.7 Intake and Output for Last 24 Hours 05/17/17 05/18/17 05/19/17 23:59 23:59 23:59 Intake Total 790 / 790 Output Total 180 / 180 Balance 610 / 610 General: - - unresponsive HEENT: Sluggish Pupils Lungs: Clear to auscultation Cardiovascular: Regular rate, Normal S1, Normal S2, No murmurs Abdomen: Bowel Sounds Present, Obese Skin: No rashes Neurological: - - unable to follow any command Laboratory Results 05/18/17 16:35: Troponin I < 0.02 05/18/17 17:04: POC Glucose 168 H 05/18/17 20:59: Troponin I < 0.02 05/18/17 21:17: POC Glucose 212 H 05/19/17 02:24: Triglycerides 212 H, Cholesterol 104, LDL Cholesterol 28, VLDL Cholesterol 42 H, HDL Cholesterol 34 L 05/19/17 02:24: Troponin I < 0.02 05/19/17 06:30: WBC Pending, RBC Pending, Hgb Pending, Hct Pending, MCV Pending , MCH Pending, MCHC Pending, RDW Pending, RDW Differential Pending, Plt Count Pending, Neut % (Auto) Pending, Absolute Neuts (auto) Pending, Total Counted Pending 05/19/17 06:30: Sodium Pending, Potassium Pending, Chloride Pending, Carbon Dioxide Pending, Anion Gap Pending, BUN Pending, Creatinine Pending, Est GFR ( MDRD) Af Amer Pending, Est GFR (MDRD) Non-Af Pending, BUN/Creatinine Ratio Pending, Glucose Pending, Calcium Pending, Magnesium Pending 05/19/17 06:33: Specimen Type ART, Sample Site L Radial, pH 7.42, Bicarbonate Actual 30.7 H, POC Total CO2 32, Base Excess 6 H, O2 Saturation 94 L, ABG pCO2 47.2 H, ABG pO2 71 L, Stefano Test POS, O2 Delivery Device Nasal Can, Liter Flow 3.0, Blood Gas Notified Whom HOSP , Blood Gas Notified Time 645 Current Medications Acetaminophen (Tylenol) 650 mg PO Q4H PRN PRN PRN Reason: Headache or Temp>100.5F Al Hydroxide/Mg Hydroxide (Mylanta Ii) 30 ml PO Q6H PRN PRN PRN Reason: Gastric burning Albuterol Sulfate (Ventolin Aerosols) 2.5 mg INHALATION Q4H.RT PRN PRN Reason: WHEEZING Atenolol (Tenormin (Beta Sophy)) 100 mg PO DAILY [facility] Atorvastatin Calcium (Lipitor) 80 mg PO QHS [facility] Last Admin: 05/18/17 21:20 Dose: 80 mg Clopidogrel Bisulfate (Plavix) 75 mg PO DAILY [facility] Dextrose (D50w Syringe) 0 gm IV X1 PRN; Protocol PRN Reason: Hypoglycemia Docusate Sodium (Colace) 100 mg PO BID PRN PRN Reason: Constipation Finasteride (Proscar) 5 mg PO DAILY [facility] Furosemide (Lasix) 20 mg PO DAILY [facility] Glucagon () 1 mg IM .X1 PRN PRN Reason: Hypoglycemia Guaifenesin (Robitussin) 5 ml PO Q6H PRN PRN Reason: CONGESTION Heparin Sodium (Beef Lung) (Heparin 500 Unit/5 Ml (100/Ml)) 500 unit IV UD PRN PRN Reason: HEPARIN FLUSH Heparin Sodium (Porcine) (Heparin Na) 5,000 unit SC BID [facility] Last Admin: 05/18/17 21:19 Dose: Not Given Insulin Aspart (Novolog Flexpen ([facility])) 0 units SC ACHS [facility] PRN Reason: Protocol Last Admin: 05/18/17 21:20 Dose: 2 units Insulin Human Regular (Humulin R U-500 ([facility])) 0.25 ml SC LUNCH [facility] Insulin Human Regular (Humulin R U-500 ([facility])) 0.28 ml SC DINNER [facility] Last Admin: 05/18/17 18:48 Dose: 0.28 ml Insulin Human Regular (Humulin R U-500 (Bk)) 0.35 ml SC BREAKFAST [facility] Isosorbide Dinitrate (Isordil) 40 mg PO TID [facility] Last Admin: 05/18/17 21:19 Dose: 40 mg Levetiracetam (Keppra Tablet) 500 mg PO BID [facility] Last Admin: 05/18/17 21:19 Dose: 500 mg Magnesium Hydroxide (Milk Of Magnesia) 30 ml PO DAILY PRN PRN PRN Reason: Constipation Menthol (Bengay Vanishing Scent) 1 applic TOPICAL TID PRN PRN PRN Reason: PAIN Multivitamins/Minerals (Multivitamin With Minerals) 1 tablet PO DAILY@0800 [facility] Nitroglycerin (Nitrostat) 0.4 mg SUBLINGUAL Q5M PRN PRN Reason: CHEST PAIN Last Admin: 05/18/17 20:05 Dose: 0.4 mg Ondansetron HCl (Zofran) 4 mg IV Q8H PRN PRN PRN Reason: NAUSEA Oxycodone HCl (Oxyir) 5 mg PO Q4H PRN PRN PRN Reason: MOD-SEVERE PAIN (4-10/10) Last Admin: 05/18/17 20:06 Dose: 5 mg Pantoprazole Sodium (Protonix) 40 mg PO BID [facility] Last Admin: 05/18/17 21:21 Dose: 40 mg Senna/Docusate Sodium (Senokot-S, Kirsten-Colace) 2 tablet PO BID PRN PRN Reason: Constipation Sodium Chloride () 10 ml IV UD PRN PRN Reason: VAD FLUSH Tamsulosin HCl (Flomax) 0.8 mg PO QHS [facility] Last Admin: 05/18/17 21:18 Dose: 0.8 mg Medical Necessity - Tobacco Use Smoking Status: Former smoker Assessment/Plan acute mental status change currently unresponsive hx of seizure DO, chart review shows non compliance with Keppra and possible conversion DO [facility] to [facility] suspect seizure as cause for this acute mental status change will update ICU attending Dr Alvarado
[2017-05-19 06:51] LABS: Anion Gap 5 (5-15); BUN 16 mg/dL (7-18); BUN/Creat Ratio 22.3 RATIO (10-20); Calcium,Total 7.7 mg/dL (8.5-10.1); Chloride 104 mmol/L (98-107); Creatinine, Serum 0.72 mg/dL (0.70-1.30); EST Glomerular Filtration Rate 117 mL/min (>60); Est Glom Filt Rate - Afr Amer 141 mL/min (>60); Estimated Creatinine Clearance 75.03 ml/min; Glucose 121 mg/dL (74-106); Magnesium 1.9 mg/dL (1.6-2.6); Potassium 3.6 mmol/L (3.5-5.1); Sodium Level 140 mmol/L (136-145)
--- NOTE | 2017-05-19 07:03 | NURSING ---
Pt had been c/o CP. RN entered pt room to give pain medicine. RN rubbed pt chest, pt startled and then blankly stared at RN. service crew supervisor called to room to look at pt. BG taken an was 121. VSS. Pt satting slightly lower than he previously was. CHILD DEVELOPMENT TEACHER called. Last known well approximatley 0500. MD came to room and assessed pt. ABGs, Labs, and STAT CT of head without contrast ordered. RN, LIVESTOCK HANDLER, and Student wheeled pt to CT in bed. CT taken. Pt transported to ICU by RN, LIVESTOCK HANDLER, and Student. Report given to TURNER IN. in ICU.
--- NOTE | 2017-05-19 07:08 | PCM.CON.CC ---
Problem List (1) Hyperlipidemia Status: Chronic Qualifiers: Hyperlipidemia type: unspecified Qualified Code(s): E78.5 - Hyperlipidemia, unspecified (2) Hypertension Status: Chronic Qualifiers: Hypertension type: essential hypertension Qualified Code(s): I10 - Essential (primary) hypertension (3) Obesity Status: Chronic Qualifiers: Obesity type: due to excess calories (4) Pacemaker Status: Chronic Comment: 2001 (5) Weakness of limb Status: Chronic Comment: Left-sided weakness, chronic (6) Chronic respiratory failure Status: Chronic Qualifiers: Comment: baseline 3L continuously (7) CAD (coronary artery disease) Status: Chronic Qualifiers: Coronary Disease-Associated Artery/Lesion type: eagle artery [place] vs. 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: with steam pressure chamber operator use (9) History of smoking Status: Chronic (10) Obstructive sleep apnea Status: Chronic (11) Seizure Status: Chronic Qualifiers: (12) Chest pain Status: Acute (13) Aphasia Status: Acute (14) left sided tingling left body Status: Chronic (15) S/P CABG (coronary artery bypass graft) Status: Chronic (16) S/P PTCA (percutaneous transluminal coronary angioplasty) Status: Chronic (17) Acute ischemic stroke Status: Acute (18) CVA (cerebral vascular accident) Status: Chronic Qualifiers: Comment: Residual left-sided weakness Reason for Consult Date of Consultation: 05/19/17 Reason for Consultation: ICU management History of Present Illness: The patient is a 66 year old M, with past medical history listed below, who presented to [facility] on May 18, 2017 secondary to aphasia and left-sided weakness. Patient does have a history of chronic respiratory failure requiring supplemental oxygen, diabetes mellitus on insulin therapy and EKATERINA requiring CPAP therapy. Patient reportedly had a long-standing history of recurrent spells were similar in presentation. Patient reportedly was of his baseline on Thursday, but did not sleep well Thursday night. Thursday morning, patient woke with these symptoms. Patient has had similar admissions in February that showed no acute CVA or ACS. There has been concern for conversion disorder in the past and patient was placed on Lexapro and Keppra, but reportedly was unable to fill the Keppra secondary to cost. ED workup was relatively unremarkable, so patient was admitted to the floor for further observation. At approximately 630 this morning, an [employer] was called secondary to patient reporting chest pain and then shortly becoming unresponsive. Patient did not respond to a sternal rub. Blood sugar was noted to be 122 and saturations were above 90% on baseline nasal cannula oxygen. No seizure activity was reported by nursing or hospitalist at the bedside. Patient did have chemistry sent. A stat CT scan of the head showed no acute hemorrhage. Blood pressure was within normal limits. No fevers were noted. Patient did not receive any Haldol overnight. Patient was then transferred to the intensive care unit for further monitoring. Patient is currently not interactive at this time. Patient is not answering any questions. Patient does not have significant rigidity on exam. Review of systems unable to be obtained at this time. Past Medical History Past Medical History (Chronic Problems): Chronic Problems Hyperlipidemia (Chronic) Hypertension (Chronic) Obesity (Chronic) Pacemaker (Chronic) 2001 Weakness of limb (Chronic) Left-sided weakness, chronic Chronic respiratory failure (Chronic) baseline 3L continuously CAD (coronary artery disease) (Chronic) Cardiac catheterization 02/24/2017normal LV size should not, EF 55%, eagle multivessel CAD, patent SVG to diagonal 1, OM 2, and RCA, MASON to LAD previously reported as atretic/nonfunctional (not reevaluated at that time), advised medical therapy DM type 2 (diabetes mellitus, type 2) (Chronic) History of smoking (Chronic) Obstructive sleep apnea (Chronic) Seizure (Chronic) left sided tingling left body (Chronic) S/P CABG (coronary artery bypass graft) (Chronic) S/P PTCA (percutaneous transluminal coronary angioplasty) (Chronic) CVA (cerebral vascular accident) (Chronic) Residual left-sided weakness Allergies ezetimibe Allergy (Verified 05/18/17 11:05) Unknown Fish Containing Products Allergy (Verified 05/18/17 11:05) Unknown glyburide Allergy (Verified 05/18/17 11:05) Unknown lisinopril Allergy (Verified 05/18/17 11:05) Unknown metoprolol Allergy (Verified 05/18/17 11:05) Unknown simvastatin Allergy (Verified 05/18/17 11:05) Unknown Home Medications: Ambulatory Orders Medication Instructions Recorded Atenolol [Tenormin (beta theron)] 100 mg PO DAILY 08/09/16 Atorvastatin Calcium [Lipitor] 80 mg PO QHS 08/09/16 Cholecalciferol (Vitamin D3) 3,000 unit PO DAILY 08/09/16 [D3-2000] Finasteride [Proscar] 5 mg PO DAILY 08/09/16 Furosemide [Lasix] 20 mg PO DAILY 08/09/16 Insulin U-500 [Humulin R U-500 125 units SC LUNCH 08/09/16 ([facility])] Insulin U-500 [Humulin R U-500 140 unit SC DINNER 08/09/16 ([facility])] Insulin U-500 [Humulin R U-500 175 units SC BREAKFAST 08/09/16 ([facility])] Multivitamin with Minerals/Lut 1 each PO DAILY 08/09/16 [Pub Multivitamin 50 Plus Tab] Pantoprazole Sodium [Protonix] 40 mg PO BID 08/09/16 Tamsulosin HCl [Flomax] 0.8 mg PO QHS 08/09/16 Clopidogrel Bisulfate [Clopidogrel] 75 mg PO DAILY 12/25/16 Isosorbide Dinitrate 40 mg PO TID 01/26/17 Alprostadil [Caverject] 20 mcg IC X1 PRN 02/22/17 Dextrose [Glucose] 4 gm PO X1 PRN 02/22/17 Ketoconazole 1 applicatio TOPICAL DAILY 02/22/17 Menthol [Icy Hot] 1 applicatio TP TID PRN 02/22/17 Guaifenesin 100 mg PO Q6H PRN 05/18/17 Surgical History: angioplasty, coronary bypass surgery, pacemaker implantation, - - cabg,cholecystectemy, hernia, left knee, 4 stents Psychiatric History: No pertinent psych hx, - - possible conversion disorder anxiety Smoking Status: Former smoker - *Family History Maternal History Items: Heart Disease Paternal History Items: Unknown Review of Systems Unable to obtain accurate/complete ROS d/t: See HPI Objective: CT scan of the head was personally reviewed and shows no obvious hemorrhagic stroke. I cannot appreciate any hypodensities or effacement consistent with an old stroke. Radiology interpretation is not available at this time. This appears very similar to admission CT scan that was read as chronic atrophy. Chest x-ray shows cardiomegaly with hilar predominance consistent with possible pulmonary hypertension. No effusions are appreciated. - Physical Exam General: No apparent distress, Non-Cooperative, - - Obese. Does not appear acutely ill. HEENT: Atraumatic, PERRLA, EOMI, Normocephalic, - - No scleral icterus or injection noted. Oral: Moist Mucosa, No Gingival or Mucosal Lesions/ Ulcerations, - - Mallampati 4 Neck: Supple, No JVD, No Nodes, Trachea Midline Lungs: No rhonchi, No wheeze, No rales, Diminished, - - Symmetric expansion. No dullness to percussion. Cardiovascular: Regular rate, Regular Rhythm, Normal S1, Normal S2, No murmurs, No rub noted, No Gallop Abdomen: Bowel Sounds Present, Soft, Non Tender, Non-Distended, Obese Extremities: No clubbing, No cyanosis, No edema, Capillary Refill Less than 3 Seconds Skin: No rashes, No breakdown Musculoskeletal: No Tenderness to Palpation of Joints or Extremities Lymphatic: No Cervical, Supraclavicular, or Inguinal Adenopathy Neurological: - - Patient not responding. Patient does flinch to confrontation. Negative doll's eyes. Positive corneal reflex. No increased tone appreciated. Patient actually assisted in external rotation of wrist to check pulse. Psych/Mental Status: Flat Affect Vital Signs Temp Pulse Resp BP Pulse Ox 36.9 C 77 20 H 113/60 97 05/19/17 04:20 05/19/17 04:20 05/19/17 04:20 05/19/17 04:20 05/19/17 04:20 Oxygen Flow Rate (L/min) 3.5 Oxygen Delivery Method CPAP Weight: 116.5 kg Body Mass Index (BMI) 36.7 Intake and Output for Last 24 Hours 05/17/17 05/18/17 05/19/17 23:59 23:59 23:59 Intake Total 790 / 790 Output Total 180 / 180 Balance 610 / 610 Laboratory Tests Past 24 Hrs 05/18/17 05/18/17 05/19/17 16:35 20:59 02:24 WBC RBC Hgb Hct MCV MCH MCHC RDW RDW Differential Plt Count MPV Immature Gran % (Auto) Neut % (Auto) Lymph % (Auto) [place] % (Auto) Eos % (Auto) Baso % (Auto) Absolute Neuts (auto) Absolute Lymphs (auto) Total Counted Specimen Type Sample Site pH Bicarbonate Actual POC Total CO2 Base Excess O2 Saturation ABG pCO2 ABG pO2 [place] Test O2 Delivery Device Liter Flow Blood Gas Notified Whom Blood Gas Notified Time Sodium Potassium Chloride Carbon Dioxide Anion Gap BUN Creatinine Estim Creat Clear Calc Est GFR (MDRD) Af Amer Est GFR (MDRD) Non-Af BUN/Creatinine Ratio Glucose Calcium Magnesium Troponin I < 0.02 < 0.02 Triglycerides 212 H Cholesterol 104 LDL Cholesterol 28 VLDL Cholesterol 42 H HDL Cholesterol 34 L 05/19/17 05/19/17 05/19/17 02:24 06:30 06:30 WBC 5.1 RBC 3.63 L Hgb 11.9 L Hct 36.0 L MCV 99.2 H MCH 32.8 H MCHC 33.1 RDW 13.9 RDW Differential 48.1 H Plt Count 123 L MPV 9.4 Immature Gran % (Auto) 0.200 Neut % (Auto) 65.7 Lymph % (Auto) 23.2 [place] % (Auto) 8.3 Eos % (Auto) 2.4 Baso % (Auto) 0.2 Absolute Neuts (auto) 3.3 Absolute Lymphs (auto) 1.17 Total Counted Not Reportable Specimen Type Sample Site pH Bicarbonate Actual POC Total CO2 Base Excess O2 Saturation ABG pCO2 ABG pO2 [place] Test O2 Delivery Device Liter Flow Blood Gas Notified Whom Blood Gas Notified Time Sodium 140 Potassium 3.6 Chloride 104 Carbon Dioxide 31.0 Anion Gap 5 BUN 16 Creatinine 0.72 Estim Creat Clear Calc 75.03 Est GFR (MDRD) Af Amer 141 Est GFR (MDRD) Non-Af 117 BUN/Creatinine Ratio 22.3 H Glucose 121 H Calcium 7.7 L Magnesium 1.9 Troponin I < 0.02 Triglycerides Cholesterol LDL Cholesterol VLDL Cholesterol HDL Cholesterol 05/19/17 06:33 WBC RBC Hgb Hct MCV MCH MCHC RDW RDW Differential Plt Count MPV Immature Gran % (Auto) Neut % (Auto) Lymph % (Auto) [place] % (Auto) Eos % (Auto) Baso % (Auto) Absolute Neuts (auto) Absolute Lymphs (auto) Total Counted Specimen Type ART Sample Site L Radial pH 7.42 Bicarbonate Actual 30.7 H POC Total CO2 32 Base Excess 6 H O2 Saturation 94 L ABG pCO2 47.2 H ABG pO2 71 L [place] Test POS O2 Delivery Device Nasal Can Liter Flow 3.0 Blood Gas Notified Whom [facility] Blood Gas Notified Time 645 Sodium Potassium Chloride Carbon Dioxide Anion Gap BUN Creatinine Estim Creat Clear Calc Est GFR (MDRD) Af Amer Est GFR (MDRD) Non-Af BUN/Creatinine Ratio Glucose Calcium Magnesium Troponin I Triglycerides Cholesterol LDL Cholesterol VLDL Cholesterol HDL Cholesterol POC Glucose 05/19/17 05/18/17 05/18/17 06:11 21:17 17:04 POC Glucose 121 H 212 H 168 H Clinical Impression(s) from Imaging Studies Brain CT 05/18/17 11:24 IMPRESSION: Chronic involutional changes of the brain. Electronically Signed: Sharonda Wagner MD at 12:41 EDT Tel , Service support , Chest X-Ray 05/18/17 11:24 IMPRESSION: Moderate cardiomegaly and possible pulmonary hypertension. Electronically Signed: Sharonda Wagner MD at 11:46 EDT Tel , Service support , Brain CT 05/19/17 06:26 IMPRESSION: Chronic involutional changes of the brain. Electronically Signed: Sharonda Wagner MD at 7:15 EDT Tel , Service support , Assessment/Plan RECOMMENDATIONS: 1. Seizure precautions 2. Monitor with telemetry 3. No CPAP at this time 4. Stat EEG 5. Await neurology consultation IMPRESSIONS: 1. Acute unresponsiveness Clinical suspicion for conversion type disorder. Patient did not have any tonic-clonic activity reported. Patient is grimacing to confrontation. No increased tone is appreciated. Patient with some spontaneous assistance of movement. Will order an EEG with video for evaluation. CT scan shows no acute infiltrate. Low clinical suspicion for acute CVA. Will defer to neurology on whether MRI is necessary. Continue with Plavix, statin and Keppra for now. Blood sugars are within normal limits 2. Reported atypical chest pain Workup to this point has been unremarkable. Patient did undergo a left heart catheterization in February 2017 that did not require any acute intervention. Troponins have been negative thus far. Telemetry is unremarkable. Chest x-ray does show increased hilar markings, but patient did have an elevated LVEDP in the past indicating probable type II pulmonary hypertension. 3. Chronic hypoxic respiratory failure Unclear etiology at this time his history is very limited. Will keep saturations at appropriate levels. ABG showed adequate oxygenation and ventilation. No CPAP or patient's responsiveness is limited. As needed bronchodilators are likely sufficient at this time. Patient is reportedly not on inhaler therapy at home. 4. Diabetes mellitus/obesity/hypertension/hyperlipidemia Complicates care, management, recovery and prognosis. Continue with every 6 blood sugar checks. Code Visit Inpatient E&M: 08266 Init Hosp L3
--- NOTE | 2017-05-19 07:19 | CON.PCM_ITS ---
Problem List (1) Hyperlipidemia Status: Chronic Qualifiers: Hyperlipidemia type: unspecified Qualified Code(s): E78.5 - Hyperlipidemia , unspecified (2) Hypertension Status: Chronic Qualifiers: Hypertension type: essential hypertension Qualified Code(s): I10 - Essential (primary) hypertension (3) Obesity Status: Chronic Qualifiers: Obesity type: due to excess calories (4) Pacemaker Status: Chronic Comment: 2001 (5) Weakness of limb Status: Chronic Comment: Left-sided weakness, chronic (6) Chronic respiratory failure Status: Chronic Qualifiers: Comment: baseline 3L continuously (7) CAD (coronary artery disease) Status: Chronic Qualifiers: Coronary Disease-Associated Artery/Lesion type: [place] artery [place] vs. 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 use (9) History of smoking Status: Chronic (10) Obstructive sleep apnea Status: Chronic (11) Seizure Status: Chronic Qualifiers: (12) Chest pain Status: Acute (13) Aphasia Status: Acute (14) left sided tingling left body Status: Chronic (15) S/P CABG (coronary artery bypass graft) Status: Chronic (16) S/P PTCA (percutaneous transluminal coronary angioplasty) Status: Chronic (17) Acute ischemic stroke Status: Acute (18) CVA (cerebral vascular accident) Status: Chronic Qualifiers: Comment: Residual left-sided weakness Reason for Consult Date of Consultation: 05/19/17 Reason for Consultation: ICU management History of Present Illness: The patient is a 66 year old M, with past medical history listed below, who presented to [facility] on May 18, 2017 secondary to aphasia and left-sided weakness. Patient does have a history of chronic respiratory failure requiring supplemental oxygen, diabetes mellitus on insulin therapy and EKATERINA requiring CPAP therapy. Patient reportedly had a long-standing history of recurrent spells were similar in presentation. Patient reportedly was of his baseline on Thursday, but did not sleep well Thursday night. Thursday morning, patient woke with these symptoms. Patient has had similar admissions in February that showed no acute CVA or ACS. There has been concern for conversion disorder in the past and patient was placed on Lexapro and Keppra, but reportedly was unable to fill the Keppra secondary to cost. ED workup was relatively unremarkable, so patient was admitted to the floor for further observation. At approximately 630 this morning, an CHEMICAL WEIGHER was called secondary to patient reporting chest pain and then shortly becoming unresponsive. Patient did not respond to a sternal rub. Blood sugar was noted to be 122 and saturations were above 90% on baseline nasal cannula oxygen. No seizure activity was reported by nursing or hospitalist at the bedside. Patient did have chemistry sent. A stat CT scan of the head showed no acute hemorrhage. Blood pressure was within normal limits. No fevers were noted. Patient did not receive any Haldol overnight. Patient was then transferred to the intensive care unit for further monitoring. Patient is currently not interactive at this time. Patient is not answering any questions. Patient does not have significant rigidity on exam. Review of systems unable to be obtained at this time. Past Medical History Past Medical History (Chronic Problems): Chronic Problems Hyperlipidemia (Chronic) Hypertension (Chronic) Obesity (Chronic) Pacemaker (Chronic) 2001 Weakness of limb (Chronic) Left-sided weakness, chronic Chronic respiratory failure (Chronic) baseline 3L continuously CAD (coronary artery disease) (Chronic) Cardiac catheterization 02/24/2017?normal LV size should not, EF 55%, [place] multivessel CAD, patent SVG to diagonal 1, OM 2, and RCA, MASON to LAD previously reported as atretic/nonfunctional (not reevaluated at that time), advised medical therapy DM type 2 (diabetes mellitus, type 2) (Chronic) History of smoking (Chronic) Obstructive sleep apnea (Chronic) Seizure (Chronic) left sided tingling left body (Chronic) S/P CABG (coronary artery bypass graft) (Chronic) S/P PTCA (percutaneous transluminal coronary angioplasty) (Chronic) CVA (cerebral vascular accident) (Chronic) Residual left-sided weakness Allergies ezetimibe Allergy (Verified 05/18/17 11:05) Unknown Fish Containing Products Allergy (Verified 05/18/17 11:05) Unknown glyburide Allergy (Verified 05/18/17 11:05) Unknown lisinopril Allergy (Verified 05/18/17 11:05) Unknown metoprolol Allergy (Verified 05/18/17 11:05) Unknown simvastatin Allergy (Verified 05/18/17 11:05) Unknown Home Medications: Ambulatory Orders Medication Instructions Recorded Atenolol [Tenormin (beta theron)] 100 mg PO DAILY 08/09/16 Atorvastatin Calcium [Lipitor] 80 mg PO QHS 08/09/16 Cholecalciferol (Vitamin D3) 3,000 unit PO DAILY 08/09/16 [D3-2000] Finasteride [Proscar] 5 mg PO DAILY 08/09/16 Furosemide [Lasix] 20 mg PO DAILY 08/09/16 Insulin U-500 [Humulin R U-500 125 units SC LUNCH 08/09/16 ([facility])] Insulin U-500 [Humulin R U-500 140 unit SC DINNER 08/09/16 ([facility])] Insulin U-500 [Humulin R U-500 175 units SC BREAKFAST 08/09/16 ([facility])] Multivitamin with Minerals/Lut 1 each PO DAILY 08/09/16 [Pub Multivitamin 50 Plus Tab] Pantoprazole Sodium [Protonix] 40 mg PO BID 08/09/16 Tamsulosin HCl [Flomax] 0.8 mg PO QHS 08/09/16 Clopidogrel Bisulfate [Clopidogrel] 75 mg PO DAILY 12/25/16 Isosorbide Dinitrate 40 mg PO TID 01/26/17 Alprostadil [Caverject] 20 mcg IC X1 PRN 02/22/17 Dextrose [Glucose] 4 gm PO X1 PRN 02/22/17 Ketoconazole 1 applicatio TOPICAL DAILY 02/22/17 Menthol [Icy Hot] 1 applicatio TP TID PRN 02/22/17 Guaifenesin 100 mg PO Q6H PRN 05/18/17 Surgical History: angioplasty, coronary bypass surgery, pacemaker implantation, - - cabg,cholecystectemy, hernia, left knee, 4 stents Psychiatric History: No pertinent psych hx, - - possible conversion disorder anxiety Smoking Status: Former smoker - *Family History Maternal History Items: Heart Disease Paternal History Items: Unknown Review of Systems Unable to obtain accurate/complete ROS d/t: See HPI Objective: CT scan of the head was personally reviewed and shows no obvious hemorrhagic stroke. I cannot appreciate any hypodensities or effacement consistent with an old stroke. Radiology interpretation is not available at this time. This appears very similar to admission CT scan that was read as chronic atrophy. Chest x-ray shows cardiomegaly with hilar predominance consistent with possible pulmonary hypertension. No effusions are appreciated. - Physical Exam General: No apparent distress, Non-Cooperative, - - Obese. Does not appear acutely ill. HEENT: Atraumatic, PERRLA, EOMI, Normocephalic, - - No scleral icterus or injection noted. Oral: Moist Mucosa, No Gingival or Mucosal Lesions/ Ulcerations, - - Mallampati 4 Neck: Supple, No JVD, No Nodes, Trachea Midline Lungs: No rhonchi, No wheeze, No rales, Diminished, - - Symmetric expansion. No dullness to percussion. Cardiovascular: Regular rate, Regular Rhythm, Normal S1, Normal S2, No murmurs, No rub noted, No Gallop Abdomen: Bowel Sounds Present, Soft, Non Tender, Non-Distended, Obese Extremities: No clubbing, No cyanosis, No edema, Capillary Refill Less than 3 Seconds Skin: No rashes, No breakdown Musculoskeletal: No Tenderness to Palpation of Joints or Extremities Lymphatic: No Cervical, Supraclavicular, or Inguinal Adenopathy Neurological: - - Patient not responding. Patient does flinch to confrontation. Negative doll's eyes. Positive corneal reflex. No increased tone appreciated. Patient actually assisted in external rotation of wrist to check pulse. Psych/Mental Status: Flat Affect Vital Signs Temp Pulse Resp BP Pulse Ox 36.9 C 77 20 H 113/60 97 05/19/17 04:20 05/19/17 04:20 05/19/17 04:20 05/19/17 04:20 05/19/17 04:20 Oxygen Flow Rate (L/min) 3.5 Oxygen Delivery Method CPAP Weight: 116.5 kg Body Mass Index (BMI) 36.7 Intake and Output for Last 24 Hours 05/17/17 05/18/17 05/19/17 23:59 23:59 23:59 Intake Total 790 / 790 Output Total 180 / 180 Balance 610 / 610 Laboratory Tests Past 24 Hrs 05/18/17 05/18/17 05/19/17 16:35 20:59 02:24 WBC RBC Hgb Hct MCV MCH MCHC RDW RDW Differential Plt Count MPV Immature Gran % (Auto) Neut % (Auto) Lymph % (Auto) [place] % (Auto) Eos % (Auto) Baso % (Auto) Absolute Neuts (auto) Absolute Lymphs (auto) Total Counted Specimen Type Sample Site pH Bicarbonate Actual POC Total CO2 Base Excess O2 Saturation ABG pCO2 ABG pO2 Ste[place] Test O2 Delivery Device Liter Flow Blood Gas Notified Whom Blood Gas Notified Time Sodium Potassium Chloride Carbon Dioxide Anion Gap BUN Creatinine Estim Creat Clear Calc Est GFR (MDRD) Af Amer Est GFR (MDRD) Non-Af BUN/Creatinine Ratio Glucose Calcium Magnesium Troponin I < 0.02 < 0.02 Triglycerides 212 H Cholesterol 104 LDL Cholesterol 28 VLDL Cholesterol 42 H HDL Cholesterol 34 L 05/19/17 05/19/17 05/19/17 02:24 06:30 06:30 WBC 5.1 RBC 3.63 L Hgb 11.9 L Hct 36.0 L MCV 99.2 H MCH 32.8 H MCHC 33.1 RDW 13.9 RDW Differential 48.1 H Plt Count 123 L MPV 9.4 Immature Gran % (Auto) 0.200 Neut % (Auto) 65.7 Lymph % (Auto) 23.2 Dodge % (Auto) 8.3 Eos % (Auto) 2.4 Baso % (Auto) 0.2 Absolute Neuts (auto) 3.3 Absolute Lymphs (auto) 1.17 Total Counted Not Reportable Specimen Type Sample Site pH Bicarbonate Actual POC Total CO2 Base Excess O2 Saturation ABG pCO2 ABG pO2 Stefano Test O2 Delivery Device Liter Flow Blood Gas Notified Whom Blood Gas Notified Time Sodium 140 Potassium 3.6 Chloride 104 Carbon Dioxide 31.0 Anion Gap 5 BUN 16 Creatinine 0.72 Estim Creat Clear Calc 75.03 Est GFR (MDRD) Af Amer 141 Est GFR (MDRD) Non-Af 117 BUN/Creatinine Ratio 22.3 H Glucose 121 H Calcium 7.7 L Magnesium 1.9 Troponin I < 0.02 Triglycerides Cholesterol LDL Cholesterol VLDL Cholesterol HDL Cholesterol 05/19/17 06:33 WBC RBC Hgb Hct MCV MCH MCHC RDW RDW Differential Plt Count MPV Immature Gran % (Auto) Neut % (Auto) Lymph % (Auto) [place] % (Auto) Eos % (Auto) Baso % (Auto) Absolute Neuts (auto) Absolute Lymphs (auto) Total Counted Specimen Type ART Sample Site L Radial pH 7.42 Bicarbonate Actual 30.7 H POC Total CO2 32 Base Excess 6 H O2 Saturation 94 L ABG pCO2 47.2 H ABG pO2 71 L Stefano Test POS O2 Delivery Device Nasal Can Liter Flow 3.0 Blood Gas Notified Whom [place] [employer] Blood Gas Notified Time 645 Sodium Potassium Chloride Carbon Dioxide Anion Gap BUN Creatinine Estim Creat Clear Calc Est GFR (MDRD) Af Amer Est GFR (MDRD) Non-Af BUN/Creatinine Ratio Glucose Calcium Magnesium Troponin I Triglycerides Cholesterol LDL Cholesterol VLDL Cholesterol HDL Cholesterol POC Glucose 05/19/17 05/18/17 05/18/17 06:11 21:17 17:04 POC Glucose 121 H 212 H 168 H Clinical Impression(s) from Imaging Studies Brain CT 05/18/17 11:24 IMPRESSION: Chronic involutional changes of the brain. Electronically Signed: Sharonda Wagner MD at 12:41 EDT Tel , Service support , Chest X-Ray 05/18/17 11:24 IMPRESSION: Moderate cardiomegaly and possible pulmonary hypertension. Electronically Signed: Sharonda Wagner MD at 11:46 EDT Tel , Service support , Brain CT 05/19/17 06:26 IMPRESSION: Chronic involutional changes of the brain. Electronically Signed: Sharonda Wagner MD at 7:15 EDT Tel , Service support , Assessment/Plan RECOMMENDATIONS: 1. Seizure precautions 2. Monitor with telemetry 3. No CPAP at this time 4. Stat EEG 5. Await neurology consultation IMPRESSIONS: 1. Acute unresponsiveness Clinical suspicion for conversion type disorder. Patient did not have any tonic-clonic activity reported. Patient is grimacing to confrontation. No increased tone is appreciated. Patient with some spontaneous assistance of movement. Will order an EEG with video for evaluation. CT scan shows no acute infiltrate. Low clinical suspicion for acute CVA. Will defer to neurology on whether MRI is necessary. Continue with Plavix, statin and Keppra for now. Blood sugars are within normal limits 2. Reported atypical chest pain Workup to this point has been unremarkable. Patient did undergo a left heart catheterization in February 2017 that did not require any acute intervention. Troponins have been negative thus far. Telemetry is unremarkable. Chest x-ray does show increased hilar markings, but patient did have an elevated LVEDP in the past indicating probable type II pulmonary hypertension. 3. Chronic hypoxic respiratory failure Unclear etiology at this time his history is very limited. Will keep saturations at appropriate levels. ABG showed adequate oxygenation and ventilation. No CPAP or patient's responsiveness is limited. As needed bronchodilators are likely sufficient at this time. Patient is reportedly not on inhaler therapy at home. 4. Diabetes mellitus/obesity/hypertension/hyperlipidemia Complicates care, management, recovery and prognosis. Continue with every 6 blood sugar checks. Code Visit Inpatient E&M: 15316 Init Hosp L3
--- NOTE | 2017-05-19 07:40 | PN_ITS ---
Subjective: Patient was seen and examined. Admitted last night with aphasia. He has multiple cardiovascular comorbidities including TIAs and chronic left-sided weakness, history of recurrent spells typically with speech difficulty and gait abnormality. History of recurrent admission for similar presentation for which TIAs or stroke have been ruled out. In the last admission, it was believed the patient had a conversion disorder, started on SSRIs and Keppra. Apparently has not been able to fill his Keppra. There was a rapid response this morning, 05/19/17, where patient was found to be unresponsive but or laboratory investigations were unremarkable. Patient was transferred to ICU for further monitoring. At the time of being seen, patient was able to whisper and communicate with his hands to me. He is able to move all his extremities. Complains of anterior chest discomfort across his chest. Of note is that his vitals are stable and his troponins have been negative Objective: Physical Exam General: Alert, Cooperative, No apparent distress, obese HEENT: PERRLA, EOMI Oral: Moist Mucosa Neck: No JVD, Negative Carotid Bruits Lungs: Clear to auscultation, Normal air movement, No rhonchi, No wheeze Cardiovascular: Regular rate, Regular Rhythm, Normal S1, Normal S2, - - device present L chest wall Abdomen: Bowel Sounds Present, Soft, Non Tender, - - obese soft Extremities: No cyanosis, No edema, Peripheral Pulses Normal Musculoskeletal: No Muscle Wasting Neurological: - - CN II-XII intact, whispering to me, Power is 5/5 in RUE/RLE, 4 /5 in LUE/LLE, gait not tested Vitals/I&O's: Vital Signs Temp Pulse Resp BP Pulse Ox 98.5 F 77 20 H 113/60 97 05/19/17 04:20 05/19/17 04:20 05/19/17 04:20 05/19/17 04:20 05/19/17 04:20 Oxygen Flow Rate (L/min) 3.5 Oxygen Delivery Method CPAP Weight: 116.5 kg Body Mass Index (BMI) 36.7 Intake and Output for Last 24 Hours 05/17/17 05/18/17 05/19/17 23:59 23:59 23:59 Intake Total 790 / 790 Output Total 180 / 180 Balance 610 / 610 Laboratory Results 05/18/17 16:35: Troponin I < 0.02 05/18/17 17:04: POC Glucose 168 H 05/18/17 20:59: Troponin I < 0.02 05/18/17 21:17: POC Glucose 212 H 05/19/17 02:24: Triglycerides 212 H, Cholesterol 104, LDL Cholesterol 28, VLDL Cholesterol 42 H, HDL Cholesterol 34 L 05/19/17 02:24: Troponin I < 0.02 05/19/17 06:11: POC Glucose 121 H 05/19/17 06:30: WBC 5.1, RBC 3.63 L, Hgb 11.9 L, Hct 36.0 L, MCV 99.2 H, MCH 32.8 H, MCHC 33.1, RDW 13.9, RDW Differential 48.1 H, Plt Count 123 L, MPV 9.4, Immature Gran % (Auto) 0.200, Neut % (Auto) 65.7, Lymph % (Auto) 23.2, [place] % ( Auto) 8.3, Eos % (Auto) 2.4, Baso % (Auto) 0.2, Absolute Neuts (auto) 3.3, Absolute Lymphs (auto) 1.17, Total Counted Not Reportable 05/19/17 06:30: Sodium 140, Potassium 3.6, Chloride 104, Carbon Dioxide 31.0, Anion Gap 5, BUN 16, Creatinine 0.72, Estim Creat Clear Calc 75.03, Est GFR ( MDRD) Af Amer 141, Est GFR (MDRD) Non-Af 117, BUN/Creatinine Ratio 22.3 H, Glucose 121 H, Calcium 7.7 L, Magnesium 1.9 05/19/17 06:33: Specimen Type ART, Sample Site L Radial, pH 7.42, Bicarbonate Actual 30.7 H, POC Total CO2 32, Base Excess 6 H, O2 Saturation 94 L, ABG pCO2 47.2 H, ABG pO2 71 L, Stefano Test POS, O2 Delivery Device Nasal Can, Liter Flow 3.0, Blood Gas Notified Whom HOSP , Blood Gas Notified Time 645 Current Medications Acetaminophen (Tylenol) 650 mg PO Q4H PRN PRN PRN Reason: Headache or Temp>100.5F Al Hydroxide/Mg Hydroxide (Mylanta Ii) 30 ml PO Q6H PRN PRN PRN Reason: Gastric burning Albuterol Sulfate (Ventolin Aerosols) 2.5 mg INHALATION Q4H.RT PRN PRN Reason: WHEEZING Atenolol (Tenormin (Beta Sophy)) 100 mg PO DAILY [facility] Atorvastatin Calcium (Lipitor) 80 mg PO QHS [facility] Last Admin: 05/18/17 21:20 Dose: 80 mg Clopidogrel Bisulfate (Plavix) 75 mg PO DAILY [facility] Dextrose (D50w Syringe) 0 gm IV X1 PRN; Protocol PRN Reason: Hypoglycemia Docusate Sodium (Colace) 100 mg PO BID PRN PRN Reason: Constipation Finasteride (Proscar) 5 mg PO DAILY [facility] Furosemide (Lasix) 20 mg PO DAILY [facility] Glucagon () 1 mg IM .X1 PRN PRN Reason: Hypoglycemia Guaifenesin (Robitussin) 5 ml PO Q6H PRN PRN Reason: CONGESTION Heparin Sodium (Porcine) (Heparin Na) 5,000 unit SC BID [facility] Last Admin: 05/18/17 21:19 Dose: Not Given Insulin Aspart (Novolog Flexpen (Bkc)) 0 units SC ACHS [facility] PRN Reason: Protocol Last Admin: 05/18/17 21:20 Dose: 2 units Insulin Human Regular (Humulin R U-500 (Bkc)) 0.25 ml SC LUNCH ALEXUS Insulin Human Regular (Humulin R U-500 (Bkc)) 0.28 ml SC DINNER [facility] Last Admin: 05/18/17 18:48 Dose: 0.28 ml Insulin Human Regular (Humulin R U-500 (Bkc)) 0.35 ml SC BREAKFAST [facility] Isosorbide Dinitrate (Isordil) 40 mg PO TID [facility] Last Admin: 05/18/17 21:19 Dose: 40 mg Levetiracetam (Keppra Tablet) 500 mg PO BID [facility] Last Admin: 05/18/17 21:19 Dose: 500 mg Magnesium Hydroxide (Milk Of Magnesia) 30 ml PO DAILY PRN PRN PRN Reason: Constipation Menthol (Bengay Vanishing Scent) 1 applic TOPICAL TID PRN PRN PRN Reason: PAIN Multivitamins/Minerals (Multivitamin With Minerals) 1 tablet PO DAILY@0800 [facility] Nitroglycerin (Nitrostat) 0.4 mg SUBLINGUAL Q5M PRN PRN Reason: CHEST PAIN Last Admin: 05/18/17 20:05 Dose: 0.4 mg Ondansetron HCl (Zofran) 4 mg IV Q8H PRN PRN PRN Reason: NAUSEA Oxycodone HCl (Oxyir) 5 mg PO Q4H PRN PRN PRN Reason: MOD-SEVERE PAIN (4-10/10) Last Admin: 05/18/17 20:06 Dose: 5 mg Pantoprazole Sodium (Protonix) 40 mg PO BID [facility] Last Admin: 05/18/17 21:21 Dose: 40 mg Senna/Docusate Sodium (Senokot-S, Kirsten-Colace) 2 tablet PO BID PRN PRN Reason: Constipation Tamsulosin HCl (Flomax) 0.8 mg PO QHS [facility] Last Admin: 05/18/17 21:18 Dose: 0.8 mg Medical Necessity - Tobacco Use Smoking Status: Former smoker Assessment/Plan 66 y/o M with PMHx of Hypertension, hyperlipidemia, CAD s/p CABG, s/p Pacemaker , Diabetes mellitus type II, CVA with residual L sided weakness/paresthesias, chronic hypoxic respiratory failure suspected secondary to chronic COPD (3L NC) , EKATERINA on CPAP, recurrent spells believed to be secondary to conversion disorder comers in with aphasia, gait abnormality, worsening left sided weakness ongoing for 24 hours. 1. Recurrent spells of aphasia, worsening left sided weakness, likely secondary to conversion disorder, patient is being monitored in the ICU, restarted on his Keppra, neurology consulted, will resume Lexapro, continue to monitor in the ICU. 2. Chest pain, h/o CAD s/p CABG, recent 02/24/17 Cardiac catherization, likely cardiac, troponins have been negative, likely anxiety related, will resume Lexapro, continue with atenolol, atorvastatin, Plavix, isosorbide dinitrate as well as nitro sublingual prn 3. Chronic COPD, not in acute exacerbation, on as needed breathing treatments 4. Diabetes mellitus type II, HbA1c 7.5, patient is slightly lethargic today, hold morning insulin, continue to monitor with Accu-Cheks and insulin sliding scale 5. Obesity 6. Hyperlipidemia, on statin 7. Hypertension, controlled, on atenolol, will continue to monitor. 8. GERD, will start on Famotidine IV. 9. EKATERINA on CPAP 10. DVT Ppx -Heparin SC Code Visit Inpatient E&M: 00444 Subs Hosp L3
[2017-05-19] MEDS: Isosorbide DN 20 MG Tablet 40 MG PO ×3 (08:50→21:57)
[2017-05-19] MEDS: Multivitamins,Ther W-Minerals Tablet 1 TABLET PO (08:51)
[2017-05-19] MEDS: levETIRAcetam 500 MG Tablet PO ×2 (08:52→21:57)
[2017-05-19] MEDS: Clopidogrel Bisulfate 75 MG Tablet PO (08:53)
[2017-05-19] MEDS: Furosemide 20 MG Tablet PO (08:53)
[2017-05-19] MEDS: Finasteride 5 MG Tablet PO (08:54)
[2017-05-19] MEDS: Pantoprazole Sodium 40 MG Tablet PO ×2 (08:54→21:58)
[2017-05-19] MEDS: Atenolol 100 MG Tablet PO (08:54)
[2017-05-19 12:25] LABS: Bedside Glucose 174 mg/dL (70-110)
[2017-05-19] MEDS: Escitalopram Oxalate 10 MG Tablet PO (12:28)
--- NOTE | 2017-05-19 12:28 | PCM.CONS.GEN ---
Reason for Consult Date of Consultation: 05/19/17 Reason for Consultation: Speech arrest History of Present Illness: The patient is a 66 year old male with recurrent admissions for similar neurologic complaints including speech arrest. He has never had a witnessed seizure, or convulsion, and workup for his spells over the past decade has included multiple EEGs included extended EEG monitoring. He has not had any captured episodes. He apparently was doing some gardening over the weekend and may have overexerted himself, and is now admitted for what his describes as a stereotypical event. After his last event in February, it was recommended that he have outpatient follow-up for psychiatry, apparently he saw a director of social work at the [facility] who did not detect any psychiatric issues. He was prescribed Keppra, but this was never filled due to cost. He is on Keppra p.o. well now, nursing staff notes that he is doing well otherwise, is hemodynamically stable and is tolerating p.o. well. Past Medical History Past Medical History (Chronic Problems): Chronic Problems Hyperlipidemia (Chronic) Hypertension (Chronic) Obesity (Chronic) Pacemaker (Chronic) 2001 Weakness of limb (Chronic) Left-sided weakness, chronic Chronic respiratory failure (Chronic) baseline 3L continuously CAD (coronary artery disease) (Chronic) Cardiac catheterization 02/24/2017normal LV size should not, EF 55%, [place] multivessel CAD, patent SVG to diagonal 1, OM 2, and RCA, MASON to LAD previously reported as atretic/nonfunctional (not reevaluated at that time), advised medical therapy DM type 2 (diabetes mellitus, type 2) (Chronic) History of smoking (Chronic) Obstructive sleep apnea (Chronic) Seizure (Chronic) left sided tingling left body (Chronic) S/P CABG (coronary artery bypass graft) (Chronic) S/P PTCA (percutaneous transluminal coronary angioplasty) (Chronic) CVA (cerebral vascular accident) (Chronic) Residual left-sided weakness Allergies ezetimibe Allergy (Verified 05/18/17 11:05) Unknown Fish Containing Products Allergy (Verified 05/18/17 11:05) Unknown glyburide Allergy (Verified 05/18/17 11:05) Unknown lisinopril Allergy (Verified 05/18/17 11:05) Unknown metoprolol Allergy (Verified 05/18/17 11:05) Unknown simvastatin Allergy (Verified 05/18/17 11:05) Unknown Home Medications: Ambulatory Orders Medication Instructions Recorded Atenolol [Tenormin (beta theron)] 100 mg PO DAILY 08/09/16 Atorvastatin Calcium [Lipitor] 80 mg PO QHS 08/09/16 Cholecalciferol (Vitamin D3) 3,000 unit PO DAILY 08/09/16 [D3-2000] Finasteride [Proscar] 5 mg PO DAILY 08/09/16 Furosemide [Lasix] 20 mg PO DAILY 08/09/16 Insulin U-500 [Humulin R U-500 125 units SC LUNCH 08/09/16 ([facility])] Insulin U-500 [Humulin R U-500 140 unit SC DINNER 08/09/16 ([facility])] Insulin U-500 [Humulin R U-500 175 units SC BREAKFAST 08/09/16 ([facility])] Multivitamin with Minerals/Lut 1 each PO DAILY 08/09/16 [Pub Multivitamin 50 Plus Tab] Pantoprazole Sodium [Protonix] 40 mg PO BID 08/09/16 Tamsulosin HCl [Flomax] 0.8 mg PO QHS 08/09/16 Clopidogrel Bisulfate [Clopidogrel] 75 mg PO DAILY 12/25/16 Isosorbide Dinitrate 40 mg PO TID 01/26/17 Alprostadil [Caverject] 20 mcg IC X1 PRN 02/22/17 Dextrose [Glucose] 4 gm PO X1 PRN 02/22/17 Ketoconazole 1 applicatio TOPICAL DAILY 02/22/17 Menthol [Icy Hot] 1 applicatio TP TID PRN 02/22/17 Guaifenesin 100 mg PO Q6H PRN 05/18/17 Surgical History: angioplasty, coronary bypass surgery, pacemaker implantation, - - cabg,cholecystectemy, hernia, left knee, 4 stents Psychiatric History: No pertinent psych hx, - - possible conversion disorder anxiety Smoking Status: Former smoker - *Family History Maternal History Items: Heart Disease Paternal History Items: Unknown Review of Systems Constitutional: Denies: Chills, Fever, Weight Change HEENT: Denies: Head Aches, Sinus Congestion, Sinus Drainage Cardiovascular: Denies: Chest Pain, Palpitations Respiratory: Denies: Cough, Shortness of breath at rest, Sputum production Gastrointestinal: Denies: Abdominal Pain, Nausea, Vomiting Genitourinary: Denies: Dysuria Musculoskeletal: Denies: Joint Pain, Joint Tenderness Skin: Denies: Rash, Wounds Neurological: Denies: Numbness, Tingling, Focal weakness Psychiatric: Denies: Anxiety, Depression, Homicidal Ideations, Suicidal Ideations Hematologic/ Lymphatic: Denies: Easy Bruising, Easy Bleeding - Physical Exam General: Alert, Oriented x3, Cooperative HEENT: Atraumatic, PERRLA, EOMI, Normocephalic Neck: Supple, No JVD, Negative Carotid Bruits Lungs: Clear to auscultation, Normal air movement Cardiovascular: Regular rate, No murmurs Abdomen: Bowel Sounds Present, Soft, Non Tender Extremities: No edema, Capillary Refill Less than 3 Seconds Skin: No rashes, No breakdown Musculoskeletal: No Tenderness to Palpation of Joints or Extremities Neurological: Cranial nerves II-XII grossly intact, - - Speech arrest, follows commands and appears to comprehend all speech although this is complicated by very hard of hearing. Psych/Mental Status: Normal Affect, Appropriate Vital Signs Temp Pulse Resp BP Pulse Ox 37.1 C 60 16 105/53 L 94 05/19/17 09:00 05/19/17 10:00 05/19/17 10:00 05/19/17 10:00 05/19/17 10:00 Oxygen Flow Rate (L/min) 3 Oxygen Delivery Method Nasal Cannula Weight: 116.5 kg Body Mass Index (BMI) 36.7 Intake and Output for Last 24 Hours 05/17/17 05/18/17 05/19/17 23:59 23:59 23:59 Intake Total 790 / 790 Output Total 180 / 180 Balance 610 / 610 Laboratory Tests Past 24 Hrs 05/18/17 05/18/17 05/19/17 16:35 20:59 02:24 WBC RBC Hgb Hct MCV MCH MCHC RDW RDW Differential Plt Count MPV Immature Gran % (Auto) Neut % (Auto) Lymph % (Auto) [place] % (Auto) Eos % (Auto) Baso % (Auto) Absolute Neuts (auto) Absolute Lymphs (auto) Total Counted Specimen Type Sample Site pH Bicarbonate Actual POC Total CO2 Base Excess O2 Saturation ABG pCO2 ABG pO2 [place] Test O2 Delivery Device Liter Flow Blood Gas Notified Whom Blood Gas Notified Time Sodium Potassium Chloride Carbon Dioxide Anion Gap BUN Creatinine Estim Creat Clear Calc Est GFR (MDRD) Af Amer Est GFR (MDRD) Non-Af BUN/Creatinine Ratio Glucose Calcium Magnesium Troponin I < 0.02 < 0.02 Triglycerides 212 H Cholesterol 104 LDL Cholesterol 28 VLDL Cholesterol 42 H HDL Cholesterol 34 L MRSA (PCR) 05/19/17 05/19/17 05/19/17 02:24 06:30 06:30 WBC 5.1 RBC 3.63 L Hgb 11.9 L Hct 36.0 L MCV 99.2 H MCH 32.8 H MCHC 33.1 RDW 13.9 RDW Differential 48.1 H Plt Count 123 L MPV 9.4 Immature Gran % (Auto) 0.200 Neut % (Auto) 65.7 Lymph % (Auto) 23.2 [place] % (Auto) 8.3 Eos % (Auto) 2.4 Baso % (Auto) 0.2 Absolute Neuts (auto) 3.3 Absolute Lymphs (auto) 1.17 Total Counted Not Reportable Specimen Type Sample Site pH Bicarbonate Actual POC Total CO2 Base Excess O2 Saturation ABG pCO2 ABG pO2 [place] Test O2 Delivery Device Liter Flow Blood Gas Notified Whom Blood Gas Notified Time Sodium 140 Potassium 3.6 Chloride 104 Carbon Dioxide 31.0 Anion Gap 5 BUN 16 Creatinine 0.72 Estim Creat Clear Calc 75.03 Est GFR (MDRD) Af Amer 141 Est GFR (MDRD) Non-Af 117 BUN/Creatinine Ratio 22.3 H Glucose 121 H Calcium 7.7 L Magnesium 1.9 Troponin I < 0.02 Triglycerides Cholesterol LDL Cholesterol VLDL Cholesterol HDL Cholesterol MRSA (PCR) 05/19/17 05/19/17 06:33 10:00 WBC RBC Hgb Hct MCV MCH MCHC RDW RDW Differential Plt Count MPV Immature Gran % (Auto) Neut % (Auto) Lymph % (Auto) [place] % (Auto) Eos % (Auto) Baso % (Auto) Absolute Neuts (auto) Absolute Lymphs (auto) Total Counted Specimen Type ART Sample Site L Radial pH 7.42 Bicarbonate Actual 30.7 H POC Total CO2 32 Base Excess 6 H O2 Saturation 94 L ABG pCO2 47.2 H ABG pO2 71 L [place] Test POS O2 Delivery Device Nasal Can Liter Flow 3.0 Blood Gas Notified Whom [facility] Blood Gas Notified Time 645 Sodium Potassium Chloride Carbon Dioxide Anion Gap BUN Creatinine Estim Creat Clear Calc Est GFR (MDRD) Af Amer Est GFR (MDRD) Non-Af BUN/Creatinine Ratio Glucose Calcium Magnesium Troponin I Triglycerides Cholesterol LDL Cholesterol VLDL Cholesterol HDL Cholesterol MRSA (PCR) Pending POC Glucose 05/19/17 05/19/17 05/18/17 12:19 06:11 21:17 POC Glucose 174 H 121 H 212 H 05/18/17 17:04 POC Glucose 168 H Assessment/Plan Impression: Recurrent stereotyped spells of speech arrest, I think it is reasonable to empirically treat these with Keppra 500 mg twice daily. I will give him an extra dose of 1000 mg IV ?1 now. He has had multiple spells over the past 10 years, which have never progressed or become dangerous otherwise and workup has been negative extensively.
--- NOTE | 2017-05-19 12:31 | CON.PCM_ITS ---
Reason for Consult Date of Consultation: 05/19/17 Reason for Consultation: Speech arrest History of Present Illness: The patient is a 66 year old male with recurrent admissions for similar neurologic complaints including speech arrest. He has never had a witnessed seizure, or convulsion, and workup for his spells over the past decade has included multiple EEGs included extended EEG monitoring. He has not had any captured episodes. He apparently was doing some gardening over the weekend and may have overexerted himself, and is now admitted for what his describes as a stereotypical event. After his last event in February, it was recommended that he have outpatient follow-up for psychiatry, apparently he saw a social studies teacher at the [facility] who did not detect any psychiatric issues. He was prescribed Keppra, but this was never filled due to cost. He is on Keppra p.o. well now, nursing staff notes that he is doing well otherwise, is hemodynamically stable and is tolerating p.o. well. Past Medical History Past Medical History (Chronic Problems): Chronic Problems Hyperlipidemia (Chronic) Hypertension (Chronic) Obesity (Chronic) Pacemaker (Chronic) 2001 Weakness of limb (Chronic) Left-sided weakness, chronic Chronic respiratory failure (Chronic) baseline 3L continuously CAD (coronary artery disease) (Chronic) Cardiac catheterization 02/24/2017?normal LV size should not, EF 55%, [place] multivessel CAD, patent SVG to diagonal 1, OM 2, and RCA, MASON to LAD previously reported as atretic/nonfunctional (not reevaluated at that time), advised medical therapy DM type 2 (diabetes mellitus, type 2) (Chronic) History of smoking (Chronic) Obstructive sleep apnea (Chronic) Seizure (Chronic) left sided tingling left body (Chronic) S/P CABG (coronary artery bypass graft) (Chronic) S/P PTCA (percutaneous transluminal coronary angioplasty) (Chronic) CVA (cerebral vascular accident) (Chronic) Residual left-sided weakness Allergies ezetimibe Allergy (Verified 05/18/17 11:05) Unknown Fish Containing Products Allergy (Verified 05/18/17 11:05) Unknown glyburide Allergy (Verified 05/18/17 11:05) Unknown lisinopril Allergy (Verified 05/18/17 11:05) Unknown metoprolol Allergy (Verified 05/18/17 11:05) Unknown simvastatin Allergy (Verified 05/18/17 11:05) Unknown Home Medications: Ambulatory Orders Medication Instructions Recorded Atenolol [Tenormin (beta theron)] 100 mg PO DAILY 08/09/16 Atorvastatin Calcium [Lipitor] 80 mg PO QHS 08/09/16 Cholecalciferol (Vitamin D3) 3,000 unit PO DAILY 08/09/16 [D3-2000] Finasteride [Proscar] 5 mg PO DAILY 08/09/16 Furosemide [Lasix] 20 mg PO DAILY 08/09/16 Insulin U-500 [Humulin R U-500 125 units SC LUNCH 08/09/16 ([facility])] Insulin U-500 [Humulin R U-500 140 unit SC DINNER 08/09/16 ([facility])] Insulin U-500 [Humulin R U-500 175 units SC BREAKFAST 08/09/16 ([facility])] Multivitamin with Minerals/Lut 1 each PO DAILY 08/09/16 [Pub Multivitamin 50 Plus Tab] Pantoprazole Sodium [Protonix] 40 mg PO BID 08/09/16 Tamsulosin HCl [Flomax] 0.8 mg PO QHS 08/09/16 Clopidogrel Bisulfate [Clopidogrel] 75 mg PO DAILY 12/25/16 Isosorbide Dinitrate 40 mg PO TID 01/26/17 Alprostadil [Caverject] 20 mcg IC X1 PRN 02/22/17 Dextrose [Glucose] 4 gm PO X1 PRN 02/22/17 Ketoconazole 1 applicatio TOPICAL DAILY 02/22/17 Menthol [Icy Hot] 1 applicatio TP TID PRN 02/22/17 Guaifenesin 100 mg PO Q6H PRN 05/18/17 Surgical History: angioplasty, coronary bypass surgery, pacemaker implantation, - - cabg,cholecystectemy, hernia, left knee, 4 stents Psychiatric History: No pertinent psych hx, - - possible conversion disorder anxiety Smoking Status: Former smoker - *Family History Maternal History Items: Heart Disease Paternal History Items: Unknown Review of Systems Constitutional: Denies: Chills, Fever, Weight Change HEENT: Denies: Head Aches, Sinus Congestion, Sinus Drainage Cardiovascular: Denies: Chest Pain, Palpitations Respiratory: Denies: Cough, Shortness of breath at rest, Sputum production Gastrointestinal: Denies: Abdominal Pain, Nausea, Vomiting Genitourinary: Denies: Dysuria Musculoskeletal: Denies: Joint Pain, Joint Tenderness Skin: Denies: Rash, Wounds Neurological: Denies: Numbness, Tingling, Focal weakness Psychiatric: Denies: Anxiety, Depression, Homicidal Ideations, Suicidal Ideations Hematologic/ Lymphatic: Denies: Easy Bruising, Easy Bleeding - Physical Exam General: Alert, Oriented x3, Cooperative HEENT: Atraumatic, PERRLA, EOMI, Normocephalic Neck: Supple, No JVD, Negative Carotid Bruits Lungs: Clear to auscultation, Normal air movement Cardiovascular: Regular rate, No murmurs Abdomen: Bowel Sounds Present, Soft, Non Tender Extremities: No edema, Capillary Refill Less than 3 Seconds Skin: No rashes, No breakdown Musculoskeletal: No Tenderness to Palpation of Joints or Extremities Neurological: Cranial nerves II-XII grossly intact, - - Speech arrest, follows commands and appears to comprehend all speech although this is complicated by very hard of hearing. Psych/Mental Status: Normal Affect, Appropriate Vital Signs Temp Pulse Resp BP Pulse Ox 37.1 C 60 16 105/53 L 94 05/19/17 09:00 05/19/17 10:00 05/19/17 10:00 05/19/17 10:00 05/19/17 10:00 Oxygen Flow Rate (L/min) 3 Oxygen Delivery Method Nasal Cannula Weight: 116.5 kg Body Mass Index (BMI) 36.7 Intake and Output for Last 24 Hours 05/17/17 05/18/17 05/19/17 23:59 23:59 23:59 Intake Total 790 / 790 Output Total 180 / 180 Balance 610 / 610 Laboratory Tests Past 24 Hrs 05/18/17 05/18/17 05/19/17 16:35 20:59 02:24 WBC RBC Hgb Hct MCV MCH MCHC RDW RDW Differential Plt Count MPV Immature Gran % (Auto) Neut % (Auto) Lymph % (Auto) [place] % (Auto) Eos % (Auto) Baso % (Auto) Absolute Neuts (auto) Absolute Lymphs (auto) Total Counted Specimen Type Sample Site pH Bicarbonate Actual POC Total CO2 Base Excess O2 Saturation ABG pCO2 ABG pO2 [place] Test O2 Delivery Device Liter Flow Blood Gas Notified Whom Blood Gas Notified Time Sodium Potassium Chloride Carbon Dioxide Anion Gap BUN Creatinine Estim Creat Clear Calc Est GFR (MDRD) Af Amer Est GFR (MDRD) Non-Af BUN/Creatinine Ratio Glucose Calcium Magnesium Troponin I < 0.02 < 0.02 Triglycerides 212 H Cholesterol 104 LDL Cholesterol 28 VLDL Cholesterol 42 H HDL Cholesterol 34 L MRSA (PCR) 05/19/17 05/19/17 05/19/17 02:24 06:30 06:30 WBC 5.1 RBC 3.63 L Hgb 11.9 L Hct 36.0 L MCV 99.2 H MCH 32.8 H MCHC 33.1 RDW 13.9 RDW Differential 48.1 H Plt Count 123 L MPV 9.4 Immature Gran % (Auto) 0.200 Neut % (Auto) 65.7 Lymph % (Auto) 23.2 [place] % (Auto) 8.3 Eos % (Auto) 2.4 Baso % (Auto) 0.2 Absolute Neuts (auto) 3.3 Absolute Lymphs (auto) 1.17 Total Counted Not Reportable Specimen Type Sample Site pH Bicarbonate Actual POC Total CO2 Base Excess O2 Saturation ABG pCO2 ABG pO2 [place] Test O2 Delivery Device Liter Flow Blood Gas Notified Whom Blood Gas Notified Time Sodium 140 Potassium 3.6 Chloride 104 Carbon Dioxide 31.0 Anion Gap 5 BUN 16 Creatinine 0.72 Estim Creat Clear Calc 75.03 Est GFR (MDRD) Af Amer 141 Est GFR (MDRD) Non-Af 117 BUN/Creatinine Ratio 22.3 H Glucose 121 H Calcium 7.7 L Magnesium 1.9 Troponin I < 0.02 Triglycerides Cholesterol LDL Cholesterol VLDL Cholesterol HDL Cholesterol MRSA (PCR) 05/19/17 05/19/17 06:33 10:00 WBC RBC Hgb Hct MCV MCH MCHC RDW RDW Differential Plt Count MPV Immature Gran % (Auto) Neut % (Auto) Lymph % (Auto) [place] % (Auto) Eos % (Auto) Baso % (Auto) Absolute Neuts (auto) Absolute Lymphs (auto) Total Counted Specimen Type ART Sample Site L Radial pH 7.42 Bicarbonate Actual 30.7 H POC Total CO2 32 Base Excess 6 H O2 Saturation 94 L ABG pCO2 47.2 H ABG pO2 71 L [place] Test POS O2 Delivery Device Nasal Can Liter Flow 3.0 Blood Gas Notified Whom [facility] Blood Gas Notified Time 645 Sodium Potassium Chloride Carbon Dioxide Anion Gap BUN Creatinine Estim Creat Clear Calc Est GFR (MDRD) Af Amer Est GFR (MDRD) Non-Af BUN/Creatinine Ratio Glucose Calcium Magnesium Troponin I Triglycerides Cholesterol LDL Cholesterol VLDL Cholesterol HDL Cholesterol MRSA (PCR) Pending POC Glucose 05/19/17 05/19/17 05/18/17 12:19 06:11 21:17 POC Glucose 174 H 121 H 212 H 05/18/17 17:04 POC Glucose 168 H Assessment/Plan Impression: Recurrent stereotyped spells of speech arrest, I think it is reasonable to empirically treat these with Keppra 500 mg twice daily. I will give him an extra dose of 1000 mg IV ?1 now. He has had multiple spells over the past 10 years, which have never progressed or become dangerous otherwise and workup has been negative extensively.
--- NOTE | 2017-05-19 12:32 | EEG ---
- Electroencephalogram Date of service 05/19/17 This is an 18 channel electroencephalogram performed portably at the bedside in the ICU on this 66-year-old male with recurrent episodes of stereotyped speech arrest without obvious convulsions and has had multiple negative EEGs in the past. 18 channel electron esophagram is performed utilizing the International 10-20 electrode placement protocol. EKG rhythm strip monitoring was also performed as well as photic stimulation. Background activity is 8-10 Hz symmetrically in the posterior leads which attenuates with eye opening. There are no lateralizing or epileptiform changes. Patient remained awake throughout the recording. EKG is normal sinus rhythm throughout the recording. Photic stimulation generates a normal symmetric driving response in the posterior leads. Impression: Normal awake electroencephalogram
[2017-05-19] MEDS: oxyCODONE 5 MG Tablet PO (12:59)
[2017-05-19] MEDS: levETIRAcetam IV 1,000 MG/100 ML BAG 400 MG IV (13:01)
[2017-05-19 13:08] LABS: M R Staph aureus DNA By PCR Negative (Negative); Probe Check PASS; Specimen Processing Control PASS
[2017-05-19] MEDS: 0.9% NaCl IVPB Med Flush (250 mL) 15 ML IV (13:15)
[2017-05-19] MEDS: 0.9% NaCl Peripheral Flush Adult/Peds IV ×2 (13:15→16:01)
[2017-05-19 16:16] LABS: Bedside Glucose 200 mg/dL (70-110)
--- NOTE | 2017-05-19 18:27 | NURSING ---
reviewed Fabiana Calderon RN charting and agree with assessment findings
[2017-05-19] MEDS: Tamsulosin HCl 0.4 MG Capsule 0.8 MG PO (21:58)
[2017-05-19] MEDS: Atorvastatin Calcium 80 MG Tablet PO (21:58)
[2017-05-19 22:06] LABS: Bedside Glucose 103 mg/dL (70-110)
[2017-05-20] VITALS (21 sets, daily range): BP systolic 103–158; BP diastolic 30–74; PULSE 60–76; RESP 12–22; TEMP 36.6–37.1; O2SAT 91–98
[2017-05-20 05:29] LABS: Absolute Lymphocyte Count 1.35 X10^3/ul (0.83-4.51); Absolute Neutrophil Count 3.4 X10^3/uL (2.0-7.7); Basophil# 0.01 X10^3/uL; Basophil% 0.2 % (0-1); Eosinophil# 0.08 X10^3/uL; Eosinophils% 1.5 % (0-5); Hematocrit 34.3 % (40-54); Hemoglobin 11.3 g/dl (13.0-16.5); Lymphocyte # 1.35 X10^3/ul (4.0); Lymphocyte % 25.7 % (19-41); Mean Corp Hgb Conc 32.9 g/gl (32-36); Mean Corpuscular Hgb 32.8 pg (27.0-32.0); Mean Corpuscular Volume 99.4 fL (80-94); Mean Platelet Vol. 10.2 fl (6.2-12.0); Monocyte% 7.6 % (0-10); Neutrophil % 64.8 % (47-70); Platelet Count 134 K/mm3 (150-450); RBC Distribution Width CV 13.6 % (11.6-14.6); RBC Distribution Width SD 47.3 fl (35.1-43.9); Red Blood Count 3.45 M/mm3 (4.6-6.2); White Blood Count 5.3 K/mm3 (4.4-11.0)
[2017-05-20 05:30] LABS: POSITIVE COUNT NO; POSITIVE DIFFERENTIAL NO; POSITIVE MORPHOLOGY NO
[2017-05-20 05:48] LABS: Anion Gap 7 (5-15); BUN 20 mg/dL (7-18); BUN/Creat Ratio 23.2 RATIO (10-20); Calcium,Total 7.9 mg/dL (8.5-10.1); Chloride 102 mmol/L (98-107); Creatinine, Serum 0.86 mg/dL (0.70-1.30); EST Glomerular Filtration Rate 94 mL/min (>60); Est Glom Filt Rate - Afr Amer 114 mL/min (>60); Estimated Creatinine Clearance 87.24 ml/min; Glucose 106 mg/dL (74-106); Magnesium 1.9 mg/dL (1.6-2.6); Phosphorus 3.6 mg/dL (2.5-4.9); Potassium 3.7 mmol/L (3.5-5.1); Sodium Level 141 mmol/L (136-145)
--- NOTE | 2017-05-20 05:57 | PCM.PN.INT ---
Subjective: Patient did well overnight. No hemodynamic instability was reported. Patient did use home CPAP overnight without complication. Nursing does report his blood pressures have trended down overnight. Patient is currently pacer dependent for heart rate, which is a change from daytime telemetry. Nursing with no other concerns at this time. No respiratory concerns were noted. Objective: EEG was negative for epileptiform activity. General: Alert, Cooperative, No apparent distress, - - Obese. Acts as though he cannot vocalize despite whispering HEENT: Atraumatic, PERRLA, EOMI, Normocephalic, - - No scleral icterus or injection. No facial droop noted. Oral: Moist Mucosa, No Gingival or Mucosal Lesions/ Ulcerations Neck: Supple, No JVD, No Nodes, Trachea Midline Lungs: Clear to auscultation, Normal air movement, No rhonchi, No wheeze, No rales Cardiovascular: Regular rate, Regular Rhythm, Normal S1, Normal S2, No murmurs, No rub noted, No Gallop Abdomen: Bowel Sounds Present, Soft, Non Tender, Non-Distended, Obese Extremities: No clubbing, No cyanosis, Capillary Refill Less than 3 Seconds, Edema - Trace Skin: No rashes, No breakdown Musculoskeletal: No Tenderness to Palpation of Joints or Extremities Lymphatic: No Cervical, Supraclavicular, or Inguinal Adenopathy Neurological: Cranial nerves II-XII grossly intact, Neuro grossly intact, Motor Exam 5/5 strength throughout, Sensory exam intact to light touch and pain Psych/Mental Status: Flat Affect Vital Signs Temp Pulse Resp BP Pulse Ox 36.6 C 60 14 105/32 L 91 05/20/17 04:00 05/20/17 05:00 05/20/17 05:00 05/20/17 05:00 05/20/17 05:00 Oxygen Flow Rate (L/min) 3 Oxygen Delivery Method CPAP Weight: 118.3 kg Intake and Output for Last 24 Hours 05/18/17 05/19/17 05/20/17 23:59 23:59 23:59 Intake Total 240 / 240 Output Total 50 / 50 Balance 190 / 190 Labs (Last 48 Hours) 05/19/17 05/20/17 05/20/17 21:55 05:10 05:10 WBC 5.3 RBC 3.45 L Hgb 11.3 L Hct 34.3 L MCV 99.4 H MCH 32.8 H MCHC 32.9 RDW 13.6 RDW Differential 47.3 H Plt Count 134 L MPV 10.2 Immature Gran % (Auto) 0.200 Neut % (Auto) 64.8 Lymph % (Auto) 25.7 [place] % (Auto) 7.6 Eos % (Auto) 1.5 Baso % (Auto) 0.2 Absolute Neuts (auto) 3.4 Absolute Lymphs (auto) 1.35 Total Counted Not Reportable Sodium 141 Potassium 3.7 Chloride 102 Carbon Dioxide 32.0 Anion Gap 7 BUN 20 H Creatinine 0.86 Estim Creat Clear Calc 87.24 Est GFR (MDRD) Af Amer 114 Est GFR (MDRD) Non-Af 94 BUN/Creatinine Ratio 23.2 H Glucose 106 Calcium 7.9 L Phosphorus 3.6 Magnesium 1.9 POC Glucose 103 Clinical Impression(s) from Imaging Studies Brain CT 05/19/17 06:26 IMPRESSION: Chronic involutional changes of the brain. Electronically Signed: Sharonda Wagner MD at 7:15 EDT Tel , Service support , Medical Necessity - Tobacco Use Smoking Status: Former smoker Assessment/Plan RECOMMENDATIONS: 1. Continue seizure precautions 2. Home CPAP with sleep 3. Okay to leave the intensive care unit 4. Hemodynamically stable. Will sign off from a critical care perspective IMPRESSIONS: 1. Acute unresponsiveness No seizure activity is reported overnight. Patient continues to act as though he cannot vocalize despite being able to make a whisper. No focal neurologic abnormalities are appreciated. Patient has been tolerating Keppra therapy. Hemodynamically stable on baseline oxygen. Okay to transfer from the intensive care unit. Will sign off from a critical care perspective. 2. Reported atypical chest pain Workup to this point has been unremarkable. Patient did undergo a left heart catheterization in February 2017 that did not require any acute intervention. Troponins have been negative thus far. Patient continues to report atypical chest pain and requesting pain medications IV. Clinical suspicion for malingering. 3. Chronic hypoxic respiratory failure Unclear etiology at this time his history is very limited. Will keep saturations at appropriate levels. ABG showed adequate oxygenation and ventilation. No CPAP or patient's responsiveness is limited. As needed bronchodilators are likely sufficient at this time. Patient is reportedly not on inhaler therapy at home. No pulmonary follow-up would be indicated unless patient would like to establish care and obtain complete PFT for quantification and clarification of lung function. 4. Diabetes mellitus/obesity/hypertension/hyperlipidemia Complicates care, management, recovery and prognosis. Continue with every 6 blood sugar checks. Code Visit Inpatient E&M: 87136 Subs Hosp L2
--- NOTE | 2017-05-20 07:30 | PCM.DC ---
- Discharge Diagnoses Reason(s) for Visit for Discharge Instructions: Inability to speak You will use the following diet at home:: Calorie/Carbohydrate Controlled (specify 1200, 1400, etc), Cardiac Your food should be the consistency of: Regular Your liquids should be the consistency of: Regular/Thin Discharge Activity: Return to Normal Activity Additional Instructions: Take all your medications as prescribed and [facility] with [facility] as well as neurologist. Allergies/Adverse Reactions: Allergies ezetimibe Allergy (Verified 05/18/17 11:05) Unknown Fish Containing Products Allergy (Verified 05/18/17 11:05) Unknown glyburide Allergy (Verified 05/18/17 11:05) Unknown lisinopril Allergy (Verified 05/18/17 11:05) Unknown metoprolol Allergy (Verified 05/18/17 11:05) Unknown simvastatin Allergy (Verified 05/18/17 11:05) Unknown Medications to take at Discharge Atenolol [Tenormin (beta theron)] 100 mg PO DAILY 08/09/16 Atorvastatin Calcium [Lipitor] 80 mg PO QHS 08/09/16 Cholecalciferol (Vitamin D3) [D3-2000] 3,000 unit PO DAILY 08/09/16 Finasteride [Proscar] 5 mg PO DAILY 08/09/16 Furosemide [Lasix] 20 mg PO DAILY 08/09/16 Insulin U-500 [Humulin R U-500 ([facility])] 125 units SC LUNCH 08/09/16 Insulin U-500 [Humulin R U-500 ([facility])] 140 unit SC DINNER 08/09/16 Insulin U-500 [Humulin R U-500 ([facility])] 175 units SC BREAKFAST 08/09/16 Multivitamin with Minerals/Lut [Pub Multivitamin 50 Plus Tab] 1 each PO DAILY 08/09/16 Pantoprazole Sodium [Protonix] 40 mg PO BID 08/09/16 Tamsulosin HCl [Flomax] 0.8 mg PO QHS 08/09/16 Clopidogrel Bisulfate [Clopidogrel] 75 mg PO DAILY 12/25/16 Isosorbide Dinitrate 40 mg PO TID 01/26/17 Alprostadil [Caverject] 20 mcg IC X1 PRN 02/22/17 Dextrose [Glucose] 4 gm PO X1 PRN 02/22/17 Ketoconazole 1 applicatio TOPICAL DAILY 02/22/17 Menthol [Icy Hot] 1 applicatio TP TID PRN 02/22/17 Guaifenesin 100 mg PO Q6H PRN 05/18/17 Escitalopram Oxalate [Lexapro] 10 mg PO DAILY #30 tab 05/20/17 levETIRAcetam tablet [Keppra tablet] 500 mg PO BID #60 tab 05/20/17 The following prescriptions were given: Escitalopram Oxalate [Lexapro] 10 mg PO DAILY #30 tab levETIRAcetam tablet [Keppra tablet] 500 mg PO BID #60 tab [facility] - Please follow up with your Primary Care Physician in: within 2 weeks When: [facility] within 2 weeks Please Follow Up With: Teodoro Holt MD When: within 2 weeks Proposed Discharge Date: 05/20/17
--- NOTE | 2017-05-20 07:33 | DCINST_ITS ---
- Discharge Diagnoses Reason(s) for Visit for Discharge Instructions: Inability to speak You will use the following diet at home:: Calorie/Carbohydrate Controlled ( specify 1200, 1400, etc), Cardiac Your food should be the consistency of: Regular Your liquids should be the consistency of: Regular/Thin Discharge Activity: Return to Normal Activity Additional Instructions: Take all your medications as prescribed and follow-up with [facility] P[facility] and psychiatrist as well as neurologist. Allergies/Adverse Reactions: Allergies ezetimibe Allergy (Verified 05/18/17 11:05) Unknown Fish Containing Products Allergy (Verified 05/18/17 11:05) Unknown glyburide Allergy (Verified 05/18/17 11:05) Unknown lisinopril Allergy (Verified 05/18/17 11:05) Unknown metoprolol Allergy (Verified 05/18/17 11:05) Unknown simvastatin Allergy (Verified 05/18/17 11:05) Unknown Medications to take at Discharge Atenolol [Tenormin (beta theron)] 100 mg PO DAILY 08/09/16 Atorvastatin Calcium [Lipitor] 80 mg PO QHS 08/09/16 Cholecalciferol (Vitamin D3) [D3-2000] 3,000 unit PO DAILY 08/09/16 Finasteride [Proscar] 5 mg PO DAILY 08/09/16 Furosemide [Lasix] 20 mg PO DAILY 08/09/16 Insulin U-500 [Humulin R U-500 ([facility])] 125 units SC LUNCH 08/09/16 Insulin U-500 [Humulin R U-500 ([facility])] 140 unit SC DINNER 08/09/16 Insulin U-500 [Humulin R U-500 ([facility])] 175 units SC BREAKFAST 08/09/16 Multivitamin with Minerals/Lut [Pub Multivitamin 50 Plus Tab] 1 each PO DAILY Pantoprazole Sodium [Protonix] 40 mg PO BID 08/09/16 Tamsulosin HCl [Flomax] 0.8 mg PO QHS 08/09/16 Clopidogrel Bisulfate [Clopidogrel] 75 mg PO DAILY 12/25/16 Isosorbide Dinitrate 40 mg PO TID 01/26/17 Alprostadil [Caverject] 20 mcg IC X1 PRN 02/22/17 Dextrose [Glucose] 4 gm PO X1 PRN 02/22/17 Ketoconazole 1 applicatio TOPICAL DAILY 02/22/17 Menthol [Icy Hot] 1 applicatio TP TID PRN 02/22/17 Guaifenesin 100 mg PO Q6H PRN 05/18/17 Escitalopram Oxalate [Lexapro] 10 mg PO DAILY #30 tab 05/20/17 levETIRAcetam tablet [Keppra tablet] 500 mg PO BID #60 tab 05/20/17 The following prescriptions were given: Escitalopram Oxalate [Lexapro] 10 mg PO DAILY #30 tab levETIRAcetam tablet [Keppra tablet] 500 mg PO BID #60 tab [facility] - Please follow up with your Primary Care Physician in: within 2 weeks When: [facility] within 2 weeks Please Follow Up With: Teodoro Holt MD When: within 2 weeks Proposed Discharge Date: 05/20/17
--- NOTE | 2017-05-20 07:45 | PCM.DC.SUM ---
Discharge Date and Diagnosis Date of Admission: 05/18/17 Date of Discharge: 05/20/17 - Primary Discharge Diagnosis Recurrent speech arrest/spells Non-cardiac chest pain - Secondary Discharge Diagnosis Chronic Problems Hyperlipidemia (Chronic) Hypertension (Chronic) Obesity (Chronic) Pacemaker (Chronic) 2001 Weakness of limb (Chronic) Left-sided weakness, chronic Chronic respiratory failure (Chronic) baseline 3L continuously CAD (coronary artery disease) (Chronic) Cardiac catheterization 02/24/2017normal LV size should not, EF 55%, [place] multivessel CAD, patent SVG to diagonal 1, OM 2, and RCA, MASON to LAD previously reported as atretic/nonfunctional (not reevaluated at that time), advised medical therapy DM type 2 (diabetes mellitus, type 2) (Chronic) History of smoking (Chronic) Obstructive sleep apnea (Chronic) Seizure (Chronic) left sided tingling left body (Chronic) S/P CABG (coronary artery bypass graft) (Chronic) S/P PTCA (percutaneous transluminal coronary angioplasty) (Chronic) CVA (cerebral vascular accident) (Chronic) Residual left-sided weakness Hospital Course and Treatment Imaging Results: Clinical Impression(s) from Imaging Studies Brain CT 05/18/17 11:24 IMPRESSION: Chronic involutional changes of the brain. Electronically Signed: Sharonda Wagner MD at 12:41 EDT Tel , Service support , Chest X-Ray 05/18/17 11:24 IMPRESSION: Moderate cardiomegaly and possible pulmonary hypertension. Electronically Signed: Sharonda Wagner MD at 11:46 EDT Tel , Service support , Brain CT 05/19/17 06:26 IMPRESSION: Chronic involutional changes of the brain. Electronically Signed: Sharonda Wagner MD at 7:15 EDT Tel , Service support , Neurology Loss Control Technician Operations: None Procedures: None Summary of Care Provided: 66 y/o male with PMHx of Hypertension, hyperlipidemia, CAD s/p CABG, s/p Pacemaker, Diabetes mellitus type II, CVA with residual L sided weakness/paresthesias, chronic hypoxic respiratory failure suspected secondary to chronic COPD (3L NC), EKATERINA on CPAP, recurrent speech spells, extensively worked out and all results have been negative. It is believed to be secondary to conversion disorder. He was admitted with another episode of aphasia and chest pain, described as stereotypical as previous. 1. Recurrent spells of aphasia, worsening left sided weakness, likely secondary to conversion disorder, patient was monitored in the ICU, EEG negative, no acute events seen except there was a rapid response the morning after his admission in which he was violent to a nurse as she reached across him to help him on the bed. From his previous discharge, did not fill his Keppra because of cost. New scripts plus pharmacy assistance were given to patient by care management team. Neurology consulted. He will follow-up with psychiatrist and neurology as well as PCP in the outpatient. 2. Chest pain, non-cardiac, h/o CAD s/p CABG, recent 02/24/17 Cardiac catherization, likely cardiac, troponins have been negative, likely anxiety related, on atenolol, atorvastatin, Plavix, isosorbide dinitrate as well as nitro sublingual prn 3. Chronic COPD, not in acute exacerbation 4. Diabetes mellitus type II, HbA1c 7.5, BS are stable, on home regimen 5. Obesity 6. Hyperlipidemia, on statin 7. Hypertension, controlled, on atenolol 8. GERD 9. EKATERINA on CPAP Discharge Diet: Low fat/ Low Cholesterol, 2000 mg Sodium Diet, Carb Control Diet Discharge Activity: Return to Normal Activity Home Medications: Medications to take at Discharge Atenolol [Tenormin (beta theron)] 100 mg PO DAILY 08/09/16 Atorvastatin Calcium [Lipitor] 80 mg PO QHS 08/09/16 Cholecalciferol (Vitamin D3) [D3-2000] 3,000 unit PO DAILY 08/09/16 Finasteride [Proscar] 5 mg PO DAILY 08/09/16 Furosemide [Lasix] 20 mg PO DAILY 08/09/16 Insulin U-500 [Humulin R U-500 ([facility])] 125 units SC LUNCH 08/09/16 Insulin U-500 [Humulin R U-500 ([facility])] 140 unit SC DINNER 08/09/16 Insulin U-500 [Humulin R U-500 ([facility])] 175 units SC BREAKFAST 08/09/16 Multivitamin with Minerals/Lut [Pub Multivitamin 50 Plus Tab] 1 each PO DAILY 08/09/16 Pantoprazole Sodium [Protonix] 40 mg PO BID 08/09/16 Tamsulosin HCl [Flomax] 0.8 mg PO QHS 08/09/16 Clopidogrel Bisulfate [Clopidogrel] 75 mg PO DAILY 12/25/16 Isosorbide Dinitrate 40 mg PO TID 01/26/17 Alprostadil [Caverject] 20 mcg IC X1 PRN 02/22/17 Dextrose [Glucose] 4 gm PO X1 PRN 02/22/17 Ketoconazole 1 applicatio TOPICAL DAILY 02/22/17 Menthol [Icy Hot] 1 applicatio TP TID PRN 02/22/17 Guaifenesin 100 mg PO Q6H PRN 05/18/17 Escitalopram Oxalate [Lexapro] 10 mg PO DAILY #30 tab 05/20/17 levETIRAcetam tablet [Keppra tablet] 500 mg PO BID #60 tab 05/20/17 Following Prescrptions Were Given to Patient: Escitalopram Oxalate [Lexapro] 10 mg PO DAILY #30 tab levETIRAcetam tablet [Keppra tablet] 500 mg PO BID #60 tab [facility]] - Please follow up with your Primary Care Physician in: within 2 weeks When: [facility] within 2 weeks Please Follow Up With: Teodoro Holt MD When: within 2 weeks Disposition: Home Minutes spent on discharge:: 25 Patient Condition:: Stable Medical Necessity - Tobacco Use Smoking Status: Former smoker Meaningful Use Info Meaningful Use Diagnoses (Choose all that apply): None applicable Code Visit Inpatient E&M: 37771 Disch Hosp
[2017-05-20 09:30] LABS: Bedside Glucose 139 mg/dL (70-110)
[2017-05-20] MEDS: Multivitamins,Ther W-Minerals Tablet 1 TABLET PO (09:45)
--- NOTE | 2017-05-20 10:55 | CASEMGMT ---
Addendum entered by Marilee Prince 05/20/17 12:03: SW brought meds to the pt, gave to his . SW let pt's RN know this. She states pt is to be seen by PT/OT prior to discharge. SW remains available for any additional needs. LOREE Chopra, VIDEO ARCADE MANAGER Original Note: Pt has two meds, as per RN they are $77 and $92, pt cannot afford these meds. Pt lives in [place] so cannot access [facility]. [facility] but they will not fill scripts written here. RN Nayla did call the [facility] to try to work something out for pt, but they have not returned her call. SW spoke w/pt and in room in regard to the medications. Pt and confirm they cannot afford the medications. SW explained to them that when pt goes to the [facility] he will need to let them know what he has been prescribed, so they can re-prescribe or adjust pt's medications as needed. Pt and aware the the [facility] will not fill the scripts written here. SW explained we can use hospital assist for the one month supply, explained we can only use this program once per year. SW also gave list of resources in [facility] including some prescription programs and JFS. SW encouraged pt and to look into applying for Medicaid to help w/medication coverage. SW then asked pt about mental health and counseling, given his many medical conditions and recent hospitalizations--for support with everything that has happened. states pt was assessed by someone at the [facility], he was referred to be assessed. states the person that assessed pt asked pt many questions and could not come up with a reason for him to be seen for mental health. She states this was done a month ago. SW asked pt if he thought counseling would be helpful, pt shook his head no. AYUSH spoke w/Dr. Hu, let her know we will need to get pt's scripts filled here and use hospital assist. AYUSH tubed the scripts with the assist program to our pharmacy, and will go pick them up when ready. AYUSH called [facility] and let them know pt will not be getting his scripts there(as they had been e-scribed there). AYUSH will bring the pt meds once filled, otherwise no further needs are anticipated. LOREE Chopra, VIDEO ARCADE MANAGER
--- NOTE | 2017-05-20 11:09 | PN.NEURO_ITS ---
Subjective: No new complaints today. is present. Questions are answered. The patient is able to answer yes or no questions but he still has speech arrest. Ports ongoing chest pain which apparently accompanies the spells stereotypically. - Physical Exam General: Alert, Oriented x3, Cooperative, No apparent distress Neurological: Cranial nerves II-XII grossly intact, - - Remains essentially mute Vital Signs Temp Pulse Resp BP Pulse Ox 36.6 C 69 17 140/52 H 95 05/20/17 04:00 05/20/17 10:00 05/20/17 10:00 05/20/17 10:47 05/20/17 10:00 Oxygen Flow Rate (L/min) 3 Oxygen Delivery Method Nasal Cannula Weight: 118.3 kg Intake and Output for Last 24 Hours 05/18/17 05/19/17 05/20/17 23:59 23:59 23:59 Intake Total 240 / 240 Output Total 100 / 100 Balance 140 / 140 Laboratory Tests Past 24 Hrs 05/20/17 05/20/17 05:10 05:10 WBC 5.3 RBC 3.45 L Hgb 11.3 L Hct 34.3 L MCV 99.4 H MCH 32.8 H MCHC 32.9 RDW 13.6 RDW Differential 47.3 H Plt Count 134 L MPV 10.2 Immature Gran % (Auto) 0.200 Neut % (Auto) 64.8 Lymph % (Auto) 25.7 [place] % (Auto) 7.6 Eos % (Auto) 1.5 Baso % (Auto) 0.2 Absolute Neuts (auto) 3.4 Absolute Lymphs (auto) 1.35 Total Counted Not Reportable Sodium 141 Potassium 3.7 Chloride 102 Carbon Dioxide 32.0 Anion Gap 7 BUN 20 H Creatinine 0.86 Estim Creat Clear Calc 87.24 Est GFR (MDRD) Af Amer 114 Est GFR (MDRD) Non-Af 94 BUN/Creatinine Ratio 23.2 H Glucose 106 Calcium 7.9 L Phosphorus 3.6 Magnesium 1.9 POC Glucose 05/20/17 05/19/17 09:28 21:55 POC Glucose 139 H 103 Medical Necessity - Tobacco Use Smoking Status: Former smoker Assessment/Plan Impression: Recurrent stereotyped spells of speech arrest, I think it is reasonable to empirically treat these with Keppra 500 mg twice daily. He has had multiple spells over the past 10 years, which have never progressed or become dangerous otherwise and workup has been negative extensively. I will ask physical therapy to ambulate with him if he ambulate safely he can be discharged to home with outpatient follow-up.
[2017-05-20] MEDS: Finasteride 5 MG Tablet PO (11:29)
[2017-05-20] MEDS: Furosemide 20 MG Tablet PO (11:29)
[2017-05-20] MEDS: Escitalopram Oxalate 10 MG Tablet PO (11:30)
[2017-05-20] MEDS: Atenolol 100 MG Tablet PO (11:30)
[2017-05-20] MEDS: Pantoprazole Sodium 40 MG Tablet PO ×2 (11:30→22:08)
[2017-05-20] MEDS: levETIRAcetam 500 MG Tablet PO ×2 (11:30→22:07)
[2017-05-20] MEDS: Clopidogrel Bisulfate 75 MG Tablet PO (11:30)
[2017-05-20 11:40] LABS: Bedside Glucose 303 mg/dL (70-110)
[2017-05-20 14:16] LABS: Bedside Glucose 227 mg/dL (70-110)
--- NOTE | 2017-05-20 14:26 | CASEMGMT ---
Per PT/OT recommendations, patient would benefit from further skilled therapy. The patient and spouse report they cannot afford home health services. KRISTI GERONIMO called [facility] and left message for return call re: any services which could be set-up at home. Patient will be transferred out of ICU. KRISTI GERONIMO will follow-up tomorrow. DEMETRIO Greene, RN-BC, CCM
--- NOTE | 2017-05-20 14:48 | PCM.PN.HOSP ---
Subjective: Patient was seen and examined in the ICU. No acute events overnight. Noted to be able to eat, patient was sleeping at time of being examined. Patient was subsequently seen by physical therapy and was said to be a 2 person assist. Can therefore not be able to be discharged. Discussed with Dr. Holt, will get psychiatry evaluation for conversion disorder. Objective: Physical Exam General: Asleep, No apparent distress, obese HEENT: PERRLA, EOMI Oral: Moist Mucosa Neck: No JVD, Negative Carotid Bruits Lungs: Clear to auscultation, Normal air movement, No rhonchi, No wheeze Cardiovascular: Regular rate, Regular Rhythm, Normal S1, Normal S2, - - device present L chest wall Abdomen: Bowel Sounds Present, Soft, Non Tender, - - obese soft Extremities: No cyanosis, No edema, Peripheral Pulses Normal Musculoskeletal: No Muscle Wasting Neurological: - -Unable to examine Vitals/I&O's: Vital Signs Temp Pulse Resp BP Pulse Ox 98.4 F 62 19 H 135/57 H 96 05/20/17 12:00 05/20/17 12:00 05/20/17 12:00 05/20/17 12:00 05/20/17 14:04 Oxygen Flow Rate (L/min) 3 Oxygen Delivery Method Nasal Cannula Weight: 118.3 kg Intake and Output for Last 24 Hours 05/18/17 05/19/17 05/20/17 23:59 23:59 23:59 Intake Total 490 / 490 Output Total 400 / 400 Balance 90 / 90 Laboratory Results 05/19/17 21:55: POC Glucose 103 05/20/17 05:10: WBC 5.3, RBC 3.45 L, Hgb 11.3 L, Hct 34.3 L, MCV 99.4 H, MCH 32.8 H, MCHC 32.9, RDW 13.6, RDW Differential 47.3 H, Plt Count 134 L, MPV 10.2, Immature Gran % (Auto) 0.200, Neut % (Auto) 64.8, Lymph % (Auto) 25.7, [place] % (Auto) 7.6, Eos % (Auto) 1.5, Baso % (Auto) 0.2, Absolute Neuts (auto) 3.4, Absolute Lymphs (auto) 1.35, Total Counted Not Reportable 05/20/17 05:10: Sodium 141, Potassium 3.7, Chloride 102, Carbon Dioxide 32.0, Anion Gap 7, BUN 20 H, Creatinine 0.86, Estim Creat Clear Calc 87.24, Est GFR (MDRD) Af Amer 114, Est GFR (MDRD) Non-Af 94, BUN/Creatinine Ratio 23.2 H, Glucose 106, Calcium 7.9 L, Phosphorus 3.6, Magnesium 1.9 05/20/17 09:28: POC Glucose 139 H 05/20/17 11:28: POC Glucose 303 H 05/20/17 14:09: POC Glucose 227 H Current Medications Acetaminophen (Tylenol) 650 mg PO Q4H PRN PRN PRN Reason: Headache or Temp>100.5F Al Hydroxide/Mg Hydroxide (Mylanta Ii) 30 ml PO Q6H PRN PRN PRN Reason: Gastric burning Albuterol Sulfate (Ventolin Aerosols) 2.5 mg INHALATION Q4H.RT PRN PRN Reason: WHEEZING Atenolol (Tenormin (Beta Sophy)) 100 mg PO DAILY [facility] Last Admin: 05/20/17 11:30 Dose: 100 mg Atorvastatin Calcium (Lipitor) 80 mg PO QHS [facility] Last Admin: 05/19/17 21:58 Dose: 80 mg Clopidogrel Bisulfate (Plavix) 75 mg PO DAILY [facility] Last Admin: 05/20/17 11:30 Dose: 75 mg Dextrose (D50w Syringe) 0 gm IV X1 PRN; Protocol PRN Reason: Hypoglycemia Docusate Sodium (Colace) 100 mg PO BID PRN PRN Reason: Constipation Escitalopram Oxalate (Lexapro) 10 mg PO DAILY [facility] Last Admin: 05/20/17 11:30 Dose: 10 mg Finasteride (Proscar) 5 mg PO DAILY [facility] Last Admin: 05/20/17 11:29 Dose: 5 mg Furosemide (Lasix) 20 mg PO DAILY [facility] Last Admin: 05/20/17 11:29 Dose: 20 mg Glucagon () 1 mg IM .X1 PRN PRN Reason: Hypoglycemia Guaifenesin (Robitussin) 5 ml PO Q6H PRN PRN Reason: CONGESTION Heparin Sodium (Porcine) (Heparin Na) 5,000 unit SC BID [facility] Last Admin: 05/20/17 11:35 Dose: Not Given Sodium Chloride () 250 mls @ 15 mls/hr IV .[id number] PRN PRN Reason: SALINE FLUSH Last Admin: 05/19/17 13:15 Dose: 15 mls/hr Insulin Aspart (Novolog Flexpen ([facility])) 0 units SC ACHS [facility] PRN Reason: Protocol Last Admin: 05/20/17 11:28 Dose: 3 units Insulin Human Regular (Humulin R U-500 ([facility])) 0.25 ml SC LUNCH [facility] Last Admin: 05/19/17 13:00 Dose: 125 u Insulin Human Regular (Humulin R U-500 ([facility])) 0.28 ml SC DINNER [facility] Last Admin: 05/19/17 18:20 Dose: 0.28 ml Insulin Human Regular (Humulin R U-500 ([facility])) 0.35 ml SC BREAKFAST [facility] Last Admin: 05/20/17 09:45 Dose: 0.35 ml Isosorbide Dinitrate (Isordil) 40 mg PO TID [facility] Last Admin: 05/20/17 05:49 Dose: Not Given Levetiracetam (Keppra Tablet) 500 mg PO BID [facility] Last Admin: 05/20/17 11:30 Dose: 500 mg Magnesium Hydroxide (Milk Of Magnesia) 30 ml PO DAILY PRN PRN PRN Reason: Constipation Menthol (Bengay Vanishing Scent) 1 applic TOPICAL TID PRN PRN PRN Reason: PAIN Multivitamins/Minerals (Multivitamin With Minerals) 1 tablet PO DAILY@0800 [facility] Last Admin: 05/20/17 09:45 Dose: 1 tablet Nitroglycerin (Nitrostat) 0.4 mg SUBLINGUAL Q5M PRN PRN Reason: CHEST PAIN Last Admin: 05/18/17 20:05 Dose: 0.4 mg Ondansetron HCl (Zofran) 4 mg IV Q8H PRN PRN PRN Reason: NAUSEA Oxycodone HCl (Oxyir) 5 mg PO Q4H PRN PRN PRN Reason: MOD-SEVERE PAIN (4-10/10) Last Admin: 05/19/17 12:59 Dose: 5 mg Pantoprazole Sodium (Protonix) 40 mg PO BID [facility] Last Admin: 05/20/17 11:30 Dose: 40 mg Senna/Docusate Sodium (Senokot-S, Kirsten-Colace) 2 tablet PO BID PRN PRN Reason: Constipation Sodium Chloride () 5 - 30 ml IV UD PRN PRN Reason: SALINE FLUSH Last Admin: 05/19/17 16:01 Dose: 10 ml Tamsulosin HCl (Flomax) 0.8 mg PO QHS [facility] Last Admin: 05/19/17 21:58 Dose: 0.8 mg Medical Necessity - Tobacco Use Smoking Status: Former smoker Assessment/Plan 66 y/o M with PMHx of Hypertension, hyperlipidemia, CAD s/p CABG, s/p Pacemaker, Diabetes mellitus type II, CVA with residual L sided weakness/paresthesias, chronic hypoxic respiratory failure suspected secondary to chronic COPD (3L NC), EKATERINA on CPAP, recurrent spells believed to be secondary to conversion disorder comers in with aphasia, gait abnormality, worsening left sided weakness ongoing for 24 hours. 1. Recurrent spells of aphasia, worsening left sided weakness, likely secondary to conversion disorder, no acute events since admission, patient still has problems with speech, started on Keppra, will get psychiatry evaluation of conversion disorder, transferred to regular floor from ICU. 2. Chest pain, h/o CAD s/p CABG, recent 02/24/17 Cardiac catherization, likely cardiac, troponins have been negative, likely anxiety related, on Lexapro, continue with atenolol, atorvastatin, Plavix, isosorbide dinitrate as well as nitro sublingual prn 3. Chronic COPD, not in acute exacerbation, on as needed breathing treatments 4. Diabetes mellitus type II, HbA1c 7.5, patient is slightly lethargic today, hold morning insulin, continue to monitor with Accu-Cheks and insulin sliding scale 5. Obesity 6. Hyperlipidemia, on statin 7. Hypertension, controlled, on atenolol, will continue to monitor. 8. GERD, will start on Famotidine IV. 9. EKATERINA on CPAP 10. DVT Ppx -Heparin SC Code Visit Inpatient E&M: 14027 Subs Hosp L3
--- NOTE | 2017-05-20 14:51 | PN_ITS ---
Subjective: Patient was seen and examined in the ICU. No acute events overnight. Noted to be able to eat, patient was sleeping at time of being examined. Patient was subsequently seen by physical therapy and was said to be a 2 person assist. Can therefore not be able to be discharged. Discussed with Dr. Holt, will get psychiatry evaluation for conversion disorder. Objective: Physical Exam General: Asleep, No apparent distress, obese HEENT: PERRLA, EOMI Oral: Moist Mucosa Neck: No JVD, Negative Carotid Bruits Lungs: Clear to auscultation, Normal air movement, No rhonchi, No wheeze Cardiovascular: Regular rate, Regular Rhythm, Normal S1, Normal S2, - - device present L chest wall Abdomen: Bowel Sounds Present, Soft, Non Tender, - - obese soft Extremities: No cyanosis, No edema, Peripheral Pulses Normal Musculoskeletal: No Muscle Wasting Neurological: - -Unable to examine Vitals/I&O's: Vital Signs Temp Pulse Resp BP Pulse Ox 98.4 F 62 19 H 135/57 H 96 05/20/17 12:00 05/20/17 12:00 05/20/17 12:00 05/20/17 12:00 05/20/17 14:04 Oxygen Flow Rate (L/min) 3 Oxygen Delivery Method Nasal Cannula Weight: 118.3 kg Intake and Output for Last 24 Hours 05/18/17 05/19/17 05/20/17 23:59 23:59 23:59 Intake Total 490 / 490 Output Total 400 / 400 Balance 90 / 90 Laboratory Results 05/19/17 21:55: POC Glucose 103 05/20/17 05:10: WBC 5.3, RBC 3.45 L, Hgb 11.3 L, Hct 34.3 L, MCV 99.4 H, MCH 32.8 H, MCHC 32.9, RDW 13.6, RDW Differential 47.3 H, Plt Count 134 L, MPV 10.2 , Immature Gran % (Auto) 0.200, Neut % (Auto) 64.8, Lymph % (Auto) 25.7, Ray % (Auto) 7.6, Eos % (Auto) 1.5, Baso % (Auto) 0.2, Absolute Neuts (auto) 3.4, Absolute Lymphs (auto) 1.35, Total Counted Not Reportable 05/20/17 05:10: Sodium 141, Potassium 3.7, Chloride 102, Carbon Dioxide 32.0, Anion Gap 7, BUN 20 H, Creatinine 0.86, Estim Creat Clear Calc 87.24, Est GFR ( MDRD) Af Amer 114, Est GFR (MDRD) Non-Af 94, BUN/Creatinine Ratio 23.2 H, Glucose 106, Calcium 7.9 L, Phosphorus 3.6, Magnesium 1.9 05/20/17 09:28: POC Glucose 139 H 05/20/17 11:28: POC Glucose 303 H 05/20/17 14:09: POC Glucose 227 H Current Medications Acetaminophen (Tylenol) 650 mg PO Q4H PRN PRN PRN Reason: Headache or Temp>100.5F Al Hydroxide/Mg Hydroxide (Mylanta Ii) 30 ml PO Q6H PRN PRN PRN Reason: Gastric burning Albuterol Sulfate (Ventolin Aerosols) 2.5 mg INHALATION Q4H.RT PRN PRN Reason: WHEEZING Atenolol (Tenormin (Beta Sophy)) 100 mg PO DAILY [facility] Last Admin: 05/20/17 11:30 Dose: 100 mg Atorvastatin Calcium (Lipitor) 80 mg PO QHS [facility] Last Admin: 05/19/17 21:58 Dose: 80 mg Clopidogrel Bisulfate (Plavix) 75 mg PO DAILY [facility] Last Admin: 05/20/17 11:30 Dose: 75 mg Dextrose (D50w Syringe) 0 gm IV X1 PRN; Protocol PRN Reason: Hypoglycemia Docusate Sodium (Colace) 100 mg PO BID PRN PRN Reason: Constipation Escitalopram Oxalate (Lexapro) 10 mg PO DAILY [facility] Last Admin: 05/20/17 11:30 Dose: 10 mg Finasteride (Proscar) 5 mg PO DAILY [facility] Last Admin: 05/20/17 11:29 Dose: 5 mg Furosemide (Lasix) 20 mg PO DAILY [facility] Last Admin: 05/20/17 11:29 Dose: 20 mg Glucagon () 1 mg IM .X1 PRN PRN Reason: Hypoglycemia Guaifenesin (Robitussin) 5 ml PO Q6H PRN PRN Reason: CONGESTION Heparin Sodium (Porcine) (Heparin Na) 5,000 unit SC BID [facility] Last Admin: 05/20/17 11:35 Dose: Not Given Sodium Chloride () 250 mls @ 15 mls/hr IV .[id number] PRN PRN Reason: SALINE FLUSH Last Admin: 05/19/17 13:15 Dose: 15 mls/hr Insulin Aspart (Novolog Flexpen ([facility])) 0 units SC ACHS [facility] PRN Reason: Protocol Last Admin: 05/20/17 11:28 Dose: 3 units Insulin Human Regular (Humulin R U-500 ([facility])) 0.25 ml SC LUNCH [facility] Last Admin: 05/19/17 13:00 Dose: 125 u Insulin Human Regular (Humulin R U-500 ([facility])) 0.28 ml SC DINNER [facility] Last Admin: 05/19/17 18:20 Dose: 0.28 ml Insulin Human Regular (Humulin R U-500 ([facility])) 0.35 ml SC BREAKFAST [facility] Last Admin: 05/20/17 09:45 Dose: 0.35 ml Isosorbide Dinitrate (Isordil) 40 mg PO TID [facility] Last Admin: 05/20/17 05:49 Dose: Not Given Levetiracetam (Keppra Tablet) 500 mg PO BID [facility] Last Admin: 05/20/17 11:30 Dose: 500 mg Magnesium Hydroxide (Milk Of Magnesia) 30 ml PO DAILY PRN PRN PRN Reason: Constipation Menthol (Bengay Vanishing Scent) 1 applic TOPICAL TID PRN PRN PRN Reason: PAIN Multivitamins/Minerals (Multivitamin With Minerals) 1 tablet PO DAILY@0800 [facility] Last Admin: 05/20/17 09:45 Dose: 1 tablet Nitroglycerin (Nitrostat) 0.4 mg SUBLINGUAL Q5M PRN PRN Reason: CHEST PAIN Last Admin: 05/18/17 20:05 Dose: 0.4 mg Ondansetron HCl (Zofran) 4 mg IV Q8H PRN PRN PRN Reason: NAUSEA Oxycodone HCl (Oxyir) 5 mg PO Q4H PRN PRN PRN Reason: MOD-SEVERE PAIN (4-10/10) Last Admin: 05/19/17 12:59 Dose: 5 mg Pantoprazole Sodium (Protonix) 40 mg PO BID [facility] Last Admin: 05/20/17 11:30 Dose: 40 mg Senna/Docusate Sodium (Senokot-S, Kirsten-Colace) 2 tablet PO BID PRN PRN Reason: Constipation Sodium Chloride () 5 - 30 ml IV UD PRN PRN Reason: SALINE FLUSH Last Admin: 05/19/17 16:01 Dose: 10 ml Tamsulosin HCl (Flomax) 0.8 mg PO QHS [facility] Last Admin: 05/19/17 21:58 Dose: 0.8 mg Medical Necessity - Tobacco Use Smoking Status: Former smoker Assessment/Plan 66 y/o M with PMHx of Hypertension, hyperlipidemia, CAD s/p CABG, s/p Pacemaker , Diabetes mellitus type II, CVA with residual L sided weakness/paresthesias, chronic hypoxic respiratory failure suspected secondary to chronic COPD (3L NC) , EKATERINA on CPAP, recurrent spells believed to be secondary to conversion disorder comers in with aphasia, gait abnormality, worsening left sided weakness ongoing for 24 hours. 1. Recurrent spells of aphasia, worsening left sided weakness, likely secondary to conversion disorder, no acute events since admission, patient still has problems with speech, started on Keppra, will get psychiatry evaluation of conversion disorder, transferred to regular floor from ICU. 2. Chest pain, h/o CAD s/p CABG, recent 02/24/17 Cardiac catherization, likely cardiac, troponins have been negative, likely anxiety related, on Lexapro, continue with atenolol, atorvastatin, Plavix, isosorbide dinitrate as well as nitro sublingual prn 3. Chronic COPD, not in acute exacerbation, on as needed breathing treatments 4. Diabetes mellitus type II, HbA1c 7.5, patient is slightly lethargic today, hold morning insulin, continue to monitor with Accu-Cheks and insulin sliding scale 5. Obesity 6. Hyperlipidemia, on statin 7. Hypertension, controlled, on atenolol, will continue to monitor. 8. GERD, will start on Famotidine IV. 9. EKATERINA on CPAP 10. DVT Ppx -Heparin SC Code Visit Inpatient E&M: 96654 Subs Hosp L3
--- NOTE | 2017-05-20 15:23 | PCA ---
1445: This clinical secretary placed call to Crisis due to conversion disorder. Spoke with Oniel whom is in house and will come see pt.
[2017-05-20] MEDS: Isosorbide DN 20 MG Tablet 40 MG PO ×2 (15:26→22:07)
[2017-05-20 18:35] LABS: Bedside Glucose 72 mg/dL (70-110)
--- NOTE | 2017-05-20 20:20 | PCM.HOSP.N ---
Hospitalist Note Spoke with nurse in ICU; patient unable to ambulate safely and felt unsafe to go home this evening; was seen by Crisis and does not meet criteria for inpatient psychiatric placement. To remain in ICU; to have PT.OT and case management evaluation in AM for consideration to qualification for post acute skilled or rehab placement.
[2017-05-20] MEDS: Tamsulosin HCl 0.4 MG Capsule 0.8 MG PO (22:08)
[2017-05-20] MEDS: Atorvastatin Calcium 80 MG Tablet PO (22:09)
[2017-05-20 22:15] LABS: Bedside Glucose 87 mg/dL (70-110)
[2017-05-21 04:00] VITALS: BP 128/51; PULSE 58; RESP 19; TEMP 36.6; O2SAT 99
[2017-05-21] MEDS: Isosorbide DN 20 MG Tablet 40 MG PO (06:32)
--- NOTE | 2017-05-21 07:35 | PN_ITS ---
Subjective: Patient was seen and examined. Still has some mutism. Was said to be communicated to the nurses by writing. Seen earlier by psychiatry crisis team nurse and said no to be a candidate for inpatient psychiatry service. Discussed on phone, recommended that supervisor brine, Oniel come to see the patient. Patient is to throwing urine across the room if the staff does not get there on time. Discussed with mobile crisis supervisor brine, Oniel, who had questionable inflammation from the [facility]. Patient apparently has multiple visits for this same presentation. Been diagnosed with conversion disorder by the [facility], has seen a psychiatrist before, was was asked to follow-up but has multiple constellations and no-shows. There was a concern for possible secondary gain. Called by residential care officer that patient had refused placement in a alf facility, him and his preferred to be discharged home. Objective: General: No apparent distress, obese, has CPAP on, does not talk, communicate with the head and hands, HEENT: PERRLA, EOMI Oral: Moist Mucosa Neck: No JVD, Negative Carotid Bruits Lungs: Clear to auscultation, Normal air movement, No rhonchi, No wheeze Cardiovascular: Regular rate, Regular Rhythm, Normal S1, Normal S2, - - device present L chest wall Abdomen: Bowel Sounds Present, Soft, Non Tender, - - obese soft Extremities: No cyanosis, No edema, Peripheral Pulses Normal Musculoskeletal: No Muscle Wasting Neurological: - -Grossly intact Vitals/I&O's: Vital Signs Temp Pulse Resp BP Pulse Ox 97.9 F 58 L 19 H 128/51 H 99 05/21/17 04:00 05/21/17 04:00 05/21/17 04:00 05/21/17 04:00 05/21/17 04:00 Oxygen Flow Rate (L/min) 3 Oxygen Delivery Method CPAP Weight: 118 kg Intake and Output for Last 24 Hours 05/19/17 05/20/17 05/21/17 23:59 23:59 23:59 Intake Total 740 / 740 150 / 150 Output Total 600 / 600 450 / 450 Balance 140 / 140 -300 / -300 Laboratory Results 05/20/17 09:28: POC Glucose 139 H 05/20/17 11:28: POC Glucose 303 H 05/20/17 14:09: POC Glucose 227 H 05/20/17 18:33: POC Glucose 72 05/20/17 22:05: POC Glucose 87 Current Medications Acetaminophen (Tylenol) 650 mg PO Q4H PRN PRN PRN Reason: Headache or Temp>100.5F Al Hydroxide/Mg Hydroxide (Mylanta Ii) 30 ml PO Q6H PRN PRN PRN Reason: Gastric burning Albuterol Sulfate (Ventolin Aerosols) 2.5 mg INHALATION Q4H.RT PRN PRN Reason: WHEEZING Atenolol (Tenormin (Beta Sophy)) 100 mg PO DAILY [facility] Last Admin: 05/20/17 11:30 Dose: 100 mg Atorvastatin Calcium (Lipitor) 80 mg PO QHS [facility] Last Admin: 05/20/17 22:09 Dose: 80 mg Clopidogrel Bisulfate (Plavix) 75 mg PO DAILY [facility] Last Admin: 05/20/17 11:30 Dose: 75 mg Dextrose (D50w Syringe) 0 gm IV X1 PRN; Protocol PRN Reason: Hypoglycemia Docusate Sodium (Colace) 100 mg PO BID PRN PRN Reason: Constipation Escitalopram Oxalate (Lexapro) 10 mg PO DAILY [facility] Last Admin: 05/20/17 11:30 Dose: 10 mg Finasteride (Proscar) 5 mg PO DAILY [facility] Last Admin: 05/20/17 11:29 Dose: 5 mg Furosemide (Lasix) 20 mg PO DAILY [facility] Last Admin: 05/20/17 11:29 Dose: 20 mg Glucagon () 1 mg IM .X1 PRN PRN Reason: Hypoglycemia Guaifenesin (Robitussin) 5 ml PO Q6H PRN PRN Reason: CONGESTION Heparin Sodium (Porcine) (Heparin Na) 5,000 unit SC BID [facility] Last Admin: 05/20/17 22:08 Dose: Not Given Sodium Chloride () 250 mls @ 15 mls/hr IV .[id number] PRN PRN Reason: SALINE FLUSH Last Admin: 05/19/17 13:15 Dose: 15 mls/hr Insulin Aspart (Novolog Flexpen ([facility])) 0 units SC ACHS [facility] PRN Reason: Protocol Last Admin: 05/20/17 22:08 Dose: Not Given Insulin Human Regular (Humulin R U-500 ([facility])) 0.2 ml SC LUNCH [facility] Insulin Human Regular (Humulin R U-500 ([facility])) 0.25 ml SC DINNER [facility] Insulin Human Regular (Humulin R U-500 ([facility])) 0.3 ml SC BREAKFAST [facility] Isosorbide Dinitrate (Isordil) 40 mg PO TID [facility] Last Admin: 05/21/17 06:32 Dose: 40 mg Levetiracetam (Keppra Tablet) 500 mg PO BID [facility] Last Admin: 05/20/17 22:07 Dose: 500 mg Magnesium Hydroxide (Milk Of Magnesia) 30 ml PO DAILY PRN PRN PRN Reason: Constipation Menthol (Bengay Vanishing Scent) 1 applic TOPICAL TID PRN PRN PRN Reason: PAIN Multivitamins/Minerals (Multivitamin With Minerals) 1 tablet PO DAILY@0800 [facility] Last Admin: 05/20/17 09:45 Dose: 1 tablet Nitroglycerin (Nitrostat) 0.4 mg SUBLINGUAL Q5M PRN PRN Reason: CHEST PAIN Last Admin: 05/18/17 20:05 Dose: 0.4 mg Ondansetron HCl (Zofran) 4 mg IV Q8H PRN PRN PRN Reason: NAUSEA Oxycodone HCl (Oxyir) 5 mg PO Q4H PRN PRN PRN Reason: MOD-SEVERE PAIN (4-10/10) Last Admin: 05/19/17 12:59 Dose: 5 mg Pantoprazole Sodium (Protonix) 40 mg PO BID [facility] Last Admin: 05/20/17 22:08 Dose: 40 mg Senna/Docusate Sodium (Senokot-S, Kirsten-Colace) 2 tablet PO BID PRN PRN Reason: Constipation Sodium Chloride () 5 - 30 ml IV UD PRN PRN Reason: SALINE FLUSH Last Admin: 05/19/17 16:01 Dose: 10 ml Tamsulosin HCl (Flomax) 0.8 mg PO QHS [facility] Last Admin: 05/20/17 22:08 Dose: 0.8 mg Medical Necessity - Tobacco Use Smoking Status: Former smoker Assessment/Plan 66 y/o M with PMHx of Hypertension, hyperlipidemia, CAD s/p CABG, s/p Pacemaker , Diabetes mellitus type II, CVA with residual L sided weakness/paresthesias, chronic hypoxic respiratory failure suspected secondary to chronic COPD (3L NC) , EKATERINA on CPAP, recurrent spells believed to be secondary to conversion disorder comers in with aphasia, gait abnormality, worsening left sided weakness ongoing for 24 hours. 1. Recurrent spells of aphasia, worsening left sided weakness, secondary to conversion disorder, [facility], workup included EEG and CT scan of the brain have been negative, neurology consulted, no acute events since admission,re-started on Keppra. Patient was found to be a two-person assist close to discharge, was recommended to go for skilled rehab but him and the refused discharge to alf facility or home health. 2. Chest pain, h/o CAD s/p CABG, recent 02/24/17 Cardiac catherization,non- cardiac, troponins have been negative, likely anxiety related, on Lexapro, on atenolol, atorvastatin, Plavix, isosorbide dinitrate as well as nitro sublingual prn 3. Chronic COPD, not in acute exacerbation, on as needed breathing treatments 4. Diabetes mellitus type II, HbA1c 7.5, patient is slightly lethargic today, changes made to insulin on account of relative hypoglycemia, 5. Obesity 6. Hyperlipidemia, on statin 7. Hypertension, controlled, on atenolol 8. GERD 9. EKATERINA on CPAP Code Visit Inpatient E&M: 27849 Subs Hosp L2
[2017-05-21 07:56] VITALS: O2SAT 96
[2017-05-21] MEDS: Multivitamins,Ther W-Minerals Tablet 1 TABLET PO (08:36)
--- NOTE | 2017-05-21 08:45 | CASEMGMT ---
Addendum entered by Marilee Prince 05/21/17 10:51: SW did call Swapna at the [facility] in [place], pt's RN to his PCP, and left a message([phone]). LOREE Chopra, TOOL MECHANIC Original Note: Addendum entered by Marilee Prince 05/21/17 10:40: Oniel from crisis saw pt, spoke w/physician, [facility]. Pt at this time does not qualify for inpt psych placement. SW spoke w/pt and in room in regard to discharge plan. Pt initially was not agreeable to SNF. SW asked how he would manage at home if he cannot walk, as yesterday he needed two assist and this would be more than his can handle. SW asked if he went to a SNF if he would stay. Pt states he cannot afford it. SW asked pt about having his hospital stay here billed to Medicare rather than [facility] so he may qualify for SNF. Pt shrugged his shoulders. SW asked pt about home care, pt declined home care referral. SW asked if pt had been assessed in the past for ongoing services at home. She states no, she states pt has had PT/OT in the past at home but for some reason lately they have not been making referrals to home health lately. SW explained that there is skilled home care, and there is also more mcc aide services the [facility] can sometimes offer. SW explained will call the nurse at the [facility] to ask about this, and will also ask PT/OT to see pt again to see if pt is moving any better. Pt does report is feeling better today and states he looks better. SW called PT/OT, asked them to come see pt, they will do so. SW will continue to follow. LOREE Chopra, TOOL MECHANIC Original Note: AYUSH spoke w/physician, pt is going to be re-assessed by crisis this morning, crisis did already see pt yesterday, for possible psych placement. AYUSH called [facility], Oniel from crisis is on his way here now. SW let ICU know, as Dr. Hu will want to speak w/Oniel when he gets here. Pt's called in, SW called her back. SW explained that pt was not able to get up w/PT yesterday, and needed an assist of two. states pt has a rolling walker at home and can get up with that. SW again reiterated that though pt may have been getting up at home, as of right now pt is not able to get up and walk at all. After some discussion, states that she does not think she would be able to manage pt at home. said pt has been to [facility] in the past, and has had [facility]. She states that if pt goes home, she does not want [facility]. SW explained that [facility] is hospice which is end of life care. SW explained that at this time, nobody is making a referral for hospice. states when they had [facility], they were told to put in grab bars and they did not at the time, were told by [facility] that there was no reason for them to come back if the pt was not going to listen to the home care agency, so states pt and told home health to stop coming. She states they have grab bars now. SW again explained that pt may not be able to go home from here, due to how he is moving. asked about a rest home here in the hospital. SW explained about the [facility], but that there may not be beds, will look into it. SW then explained to that pt is also going to be assessed this morning due to mental health concerns, as the physician is concerned that pt is having some struggles mentally. SW explained they will see if pt may need short term psych placement. states understanding. SW explained if he does not, then we will look further into mcc placement. SW also explained to that in regard to payment, we would need to bill Medicare first for the hospitalization here, so that Medicare will cover the mcc stay. SW explained that if the [facility] is billed first, the VA will not cover the mcc. SW explained that the mcc would then need to be paid for privately, or the pt would need to apply for Medicaid. states pt will not pay for mcc privately, and they do not want to apply for Medicaid. SW again reviewed with that if pt is agreeable, we would have Medicare billed for the hospitalization first so that the mcc stay can be covered, as pt would need a qualifying stay under Medicare in order for SNF to be covered. SW explained will need to go over this with pt's . SW will follow up w/pt after crisis evaluates him. LOREE Chopra, TOOL MECHANIC
[2017-05-21 09:55] VITALS: BP 147/56; PULSE 60; RESP 20; TEMP 36.3; O2SAT 100
[2017-05-21] MEDS: Clopidogrel Bisulfate 75 MG Tablet PO (09:59)
[2017-05-21] MEDS: Escitalopram Oxalate 10 MG Tablet PO (09:59)
[2017-05-21] MEDS: Pantoprazole Sodium 40 MG Tablet PO (09:59)
[2017-05-21] MEDS: Atenolol 100 MG Tablet PO (10:00)
[2017-05-21] MEDS: levETIRAcetam 500 MG Tablet PO (10:00)
[2017-05-21] MEDS: Furosemide 20 MG Tablet PO (10:00)
[2017-05-21] MEDS: Finasteride 5 MG Tablet PO (10:01)
[2017-05-21 10:11] LABS: Bedside Glucose 184 mg/dL (70-110)
[2017-05-21 11:37] VITALS: BP 134/59; PULSE 70; RESP 18; TEMP 36.6; O2SAT 95
--- NOTE | 2017-05-21 11:38 | CASEMGMT ---
Pt had PT/OT again, walked about 10 feet, needed assist X2 as per PT/OT. They spoke w/pt and about pt going to SNF, pt declined. SW spoke w/ and pt in room shortly thereafter. SW asked about SNF, pt declining, states will go home. in agreement, states pt is moving better and they can manage at home. SW asked about pt getting in and out of the car, states she will be able to get pt out of the car. did bring pt's oxygen with her. SW asked again about signing the form to have Medicare billed primary so pt can go to SNF under Medicare, pt declined again. SW explained did leave a message for the nurse at the [facility] to talk about setting up home health, message left. Pt had already indicated however that he does not want home health. SW asked about a follow up appt at the [facility], pt does not have an appt until July 08, pt sees Dr. Koenig. SW explained will call and see about getting a sooner appt, and then they can also follow up w/the physician about the home health, in the event this SW does not hear back from the nurse Swapna. If SW does hear back from Swapna after pt is discharged, SW will ask her to follow up w/pt and and ask if they would reconsider home health or more penitentiary help--as pt may benefit from both of these services. SW called the [facility], made an appt w/Dr. Koenig, the first available is June 05 at 10:40am. SW also had the gentleman making the appt put in a note for the doctor to talk w/pt and about home care and aide services in the home. SW gave the appointment information. SW notified physician that pt is declining home health and SNF referrals. She will discharge pt home today. No further needs anticipated. LOREE Chopra, CHECK OUT CLERK
--- NOTE | 2017-05-25 09:48 | CASEMGMT ---
AYUSH received a message back from AYUSH De Leon at the OR, on Thursday after 5pm inquiring what type of home care pt needs and inquiring if pt has been discharged. AYUSH called Haley back this morning([phone]), message left letting her know pt went home last Thursday, and asked her to follow up w/ regarding home care. AYUSH explained that pt would most likely benefit from aide services, but to follow up with the . LOREE Chopra, STORE HOST
== END 2017-05-21 12:55 | disposition home or self-care (01) | DRG 880 ==
LOC: ED 14:03 → PCU 15:31 → ICU 05-19 07:05 → PCU 05-19 10:13 → ICU 05-19 10:13
PROVIDERS: Family Medicine; Internal Medicine Critical Care Medicine; Admitting Provider Internal Medicine; Emergency Provider Emergency Medicine; Visit Provider Internal Medicine
DX: F44.9 Dissociative and conversion disorder, unspecified (principal); J96.11 Chronic respiratory failure with hypoxia; E66.01 Morbid (severe) obesity due to excess calories; Z91.14 Patient's other noncompliance with medication regimen; J44.9 Chronic obstructive pulmonary disease, unspecified; E11.9 Type 2 diabetes mellitus without complications; R07.89 Other chest pain; I25.10 Atherosclerotic heart disease of native coronary artery without angina pectoris; E78.5 Hyperlipidemia, unspecified; I10 Essential (primary) hypertension; G47.33 Obstructive sleep apnea (adult) (pediatric); K21.9 Gastro-esophageal reflux disease without esophagitis; Z95.0 Presence of cardiac pacemaker; Z95.1 Presence of aortocoronary bypass graft; Z79.4 Long term (current) use of insulin; Z68.36 Body mass index [BMI] 36.0-36.9, adult; Z98.61 Coronary angioplasty status; Z87.891 Personal history of nicotine dependence
CPT/HCPCS: 36415; 36600; 70450; 71045; 80048; 80061; 82803; 82962; 83735; 84100; 84484; 85025; 85379; 87641; 92507; 92526; 93005; 95819; 97116; 97162; 97166; 97530; 99251; 99283; J7030; J7050; A4216; G0463; J2405

== ENCOUNTER 2017-07-06 05:58 | Emergency (ER) | payer OTHER, MEDICARE, SELFPAY ==
[2017-07-06 05:59] VITALS: BP 143/53; PULSE 75; RESP 34; TEMP 36.8; O2SAT 92; BMI 34.7
[2017-07-06 06:02] VITALS: O2SAT 94
[2017-07-06 06:06] LABS: Bedside Glucose 309 mg/dL (70-110)
--- NOTE | 2017-07-06 06:10 | CT_ITS ---
STUDY: CT BRAIN WITHOUT CONTRAST REASON FOR EXAM: Male, 67 years old. Weakness RADIATION DOSAGE (If Supplied By Facility): CTDIvol = ( 44.99 ) mGy, DLP = ( 762.36 ) mGycm TECHNIQUE: Transaxial CT imaging of the brain was performed without administration of intravenous contrast material. Individualized dose optimization techniques were used for this CT. COMPARISON: 05/19/2017 FINDINGS: Normal soft tissue structures. Normal calvarium. There is mild cerebral atrophy with widening of the extra-axial spaces and ventricular dilatation. There are areas of decreased attenuation within the white matter tracts of the supratentorial brain, consistent with microvascular disease changes. Normal basal ganglia and thalami. Normal brainstem. There is mild cerebellar atrophy. There is no intracranial hemorrhage. There are no findings of an acute ischemic infarction. Normal visualized paranasal sinuses. CT/Brain/Head without Contrast IMPRESSION: There is NO acute intracranial abnormality. Electronically Signed: Aleks Aguirre MD at 7:30 EDT , Service support ,
--- NOTE | 2017-07-06 06:12 | ED.VISSUMM ---
- ER Visit Summary Date of Service: 07/06/17 Chief Complaint: [] Difficulty standing up off the toilet History of Present Illness: The patient is a 67 M patient presents with difficulty getting up off the toilet. He has a history of conversion disorder with multiple admissions for speech arrest spells and noncardiac chest pain. He also has chronic left-sided weakness. He had a EEG negative earlier this year. He has CT of his head last month that was negative. Heart cath in February that showed EF of 55% with patent stents. Is reported he fell while camping a week ago. called EMS Physical Examination: [] Vital signs reviewed General: Laying in bed with garbled speech. Awakens his eyes to voice. Head: Normocephalic atraumatic Eyes: Pupils equal round and reactive to light ENT: TMs clear no hemotympanum no trauma Neck: No lymphadenopathy Cardiovascular: Regular rate rhythm no murmurs normal S1-S2 Respiratory: No distress clear to auscultation bilaterally chest nontender Abdomen: Soft nontender nondistended normal bowel sounds no masses Extremities: Nontender active range of motion ?4 extremities no trauma Skin: Normal color no trauma Neuro wakens to voice and closes eyes. Positive garbled speech. Moves all extremities grossly Test Results: [] Emergency Department Course and Treatment: [] Has a history of conversion disorder with multiple visits with negative neurologic workup. EKG labs and CT head obtained. Lab work shows a creatinine of 1.3. Up from 0.8. Given IV fluids. Platelets are chronically low with a level of 99. Patient remains altered but I feel this is secondary to his conversion disorder. I do not think he needs to be admitted for a chronic issue is this. His significant other stated that over the last couple weeks his low back soreness from his fall the campground. He tripped. He has been wearing brace. Lumbar x-ray will be obtained. If negative I will have EMS transport him home. I do not feel he needs to be readmitted for chronic conversion disorder altered mental status Treatment Plan: [] Disposition: [] Impression: [] Altered mental status with history of frequent bouts secondary to conversion disorder Back pain status post fall This note was generated with '[employer] software. It may contain incorrect words, spelling, and punctuation that were not noted in review of the chart prior to signing ED Disposition - Plan for ED Patient: Chief Complaint: Weakness [facility] [[facility] Provider[facility] -
[2017-07-06 06:34] LABS: Anion Gap 9 (5-15); BUN 22 mg/dL (7-18); BUN/Creat Ratio 16.7 RATIO (10-20); Calcium,Total 8.5 mg/dL (8.5-10.1); Chloride 99 mmol/L (98-107); Creatinine, Serum 1.32 mg/dL (0.70-1.30); EST Glomerular Filtration Rate 58 mL/min (>60); Est Glom Filt Rate - Afr Amer 70 mL/min (>60); Glucose 303 mg/dL (74-106); Potassium 4.3 mmol/L (3.5-5.1); Sodium Level 136 mmol/L (136-145)
[2017-07-06 06:36] LABS: Absolute Lymphocyte Count 0.22 X10^3/ul (0.83-4.51); Absolute Neutrophil Count 8.8 X10^3/uL (2.0-7.7); Basophil# 0.01 X10^3/uL; Basophil% 0.1 % (0-1); Differential Indicated SCAN CRITERIA MET; Hematocrit 40.5 % (40-54); Hemoglobin 13.5 g/dl (13.0-16.5); Lymphocyte # 0.22 X10^3/ul (4.0); Lymphocyte % 2.4 % (19-41); Mean Corp Hgb Conc 33.3 g/gl (32-36); Mean Corpuscular Hgb 32.9 pg (27.0-32.0); Mean Corpuscular Volume 98.8 fL (80-94); Mean Platelet Vol. 10.3 fl (6.2-12.0); Monocyte# 0.24 X10^3/uL; Monocyte% 2.6 % (0-10); Neutrophil # 8.77 X10^3/uL (2.7-7.7); Neutrophil % 94.8 % (47-70); POSITIVE COUNT NO; POSITIVE DIFFERENTIAL YES; POSITIVE MORPHOLOGY NO; Platelet Count 99 K/mm3 (150-450); RBC Distribution Width CV 14.1 % (11.6-14.6); RBC Distribution Width SD 49.9 fl (35.1-43.9); White Blood Count 9.3 K/mm3 (4.4-11.0)
[2017-07-06 06:59] VITALS: BP 139/64; PULSE 79; RESP 30; O2SAT 95
[2017-07-06 07:22] VITALS: BP 128/52; PULSE 80; RESP 29; O2SAT 96
--- NOTE | 2017-07-06 07:37 | ED.DEP ---
ED Disposition - Plan for ED Patient: Disposition: Home or Assisted Living Chief Complaint: Weakness Instructions: ED Weakness [facility] [Primary Care Provider] -
--- NOTE | 2017-07-06 08:33 | RAD_ITS ---
STUDY: X-RAY - LUMBAR SPINE REASON FOR EXAM: Male, 67 years old. Pain following injury. TECHNIQUE: 3 view(s) of the lumbar spine were obtained. COMPARISON: None FINDINGS: Normal lumbar lordosis. There is no substantial scoliosis. There is a normal alignment of the vertebrae. There is multilevel endplate spondylosis of the lumbar vertebrae. Marked degree of disc space narrowing at the L5-S1 level. Facet joint osteoarthritis. There is atherosclerotic calcification of the abdominal aorta without a demonstrated aneurysm. RAD/Lumbar Spine 2 or 3 Views IMPRESSION: Degenerative changes of the spine, as detailed above. Electronically Signed: Mick García MD at 8:56 EDT Tel [phone], Service support ,
[2017-07-06 09:15] VITALS: BP 107/57; PULSE 76; RESP 16; O2SAT 95
== END 2017-07-06 09:24 | disposition home or self-care (01) ==
PROVIDERS: Emergency Provider Emergency Medicine
DX: F44.9 Dissociative and conversion disorder, unspecified (principal); R53.1 Weakness; E66.9 Obesity, unspecified; M54.5 Low back pain; I25.10 Atherosclerotic heart disease of native coronary artery without angina pectoris; E11.9 Type 2 diabetes mellitus without complications; I10 Essential (primary) hypertension; E78.00 Pure hypercholesterolemia, unspecified; Z86.73 Personal history of transient ischemic attack (TIA), and cerebral infarction without residual deficits; Z95.1 Presence of aortocoronary bypass graft
CPT/HCPCS: 70450; 72100; 80048; 82962; 85025; 93005; 99285; J7040

== ENCOUNTER 2017-09-01 16:50 | Inpatient (IN) | payer MEDICARE, SELFPAY ==
[2017-09-01] VITALS (13 sets, daily range): BP systolic 121–159; BP diastolic 60–75; PULSE 60–90; RESP 15–20; TEMP 36.6; O2SAT 93–99; BMI 36.6; BMI 36.7; BMI 35.8
--- NOTE | 2017-09-01 17:19 | EKG12_ITS ---
Test Reason : CP Blood Pressure : / mmHG Vent. Rate : 060 BPM Atrial Rate : 060 BPM P-R Int : 250 ms QRS Dur : 126 ms QT Int : 416 ms P-R-T Axes : 000 -16 084 degrees QTc Int : 416 ms Atrial-paced rhythm with prolonged AV conduction Non-specific intra-ventricular conduction block Nonspecific T wave abnormality Abnormal ECG Confirmed by PADILLA GUALLPA, CALI ([id number]), publishing editor MODESTA FISHMAN ([id number]) on 09/04/2017 1:37:43 PM Referred By: OSMAN Confirmed By:CALI CAUSEY MD
[2017-09-01] MEDS: Nitroglycerin Oint 1 INCH PACKET TRANSDERM. (17:31)
[2017-09-01] MEDS: Aspirin 81 MG TAB.CHEW 324 MG PO (17:32)
--- NOTE | 2017-09-01 17:45 | RAD_ITS ---
STUDY: X-RAY CHEST REASON FOR EXAM: Male, 67 years old. Chest pain TECHNIQUE: AP portable COMPARISON: May 18, 2017 FINDINGS: There is mild perihilar interstitial thickening greater on the left.. There is no demonstrated pleural abnormality. Heart is enlarged. Normal mediastinum and cata. Normal visualized pulmonary arteries. Normal visualized aortic arch and descending thoracic aorta. Postop change status post median sternotomy and CABG Dorsal spine demonstrates spondylosis. Normal visualized ribs, clavicles, and shoulders. Pacer noted on the left with electrodes in satisfactory position There is no demonstrated abnormality of the visualized soft tissue structures of the upper abdomen. RAD/Chest 1 View (Portable) IMPRESSION: Mild bilateral perihilar interstitial thickening greater on the left. No evidence for focal infiltrate or gross pulmonary edema Electronically Signed: Zeb Segura MD at 18:29 EDT , Service support ,
[2017-09-01 17:49] LABS: Absolute Lymphocyte Count 1.04 X10^3/ul (0.83-4.51); Absolute Neutrophil Count 3.7 X10^3/uL (2.0-7.7); Basophil# 0.01 X10^3/uL; Basophil% 0.2 % (0-1); Eosinophil# 0.09 X10^3/uL; Eosinophils% 1.8 % (0-5); Lymphocyte # 1.04 X10^3/ul (4.0); Lymphocyte % 20.2 % (19-41); Mean Corp Hgb Conc 34.2 g/gl (32-36); Mean Corpuscular Hgb 33.2 pg (27.0-32.0); Mean Corpuscular Volume 97.2 fL (80-94); Mean Platelet Vol. 10.6 fl (6.2-12.0); Monocyte# 0.35 X10^3/uL; Monocyte% 6.8 % (0-10); Neutrophil # 3.65 X10^3/uL (2.7-7.7); Platelet Count 136 K/mm3 (150-450); RBC Distribution Width CV 13.7 % (11.6-14.6); RBC Distribution Width SD 46.4 fl (35.1-43.9); Red Blood Count 3.91 M/mm3 (4.6-6.2); White Blood Count 5.1 K/mm3 (4.4-11.0)
--- NOTE | 2017-09-01 17:55 | NURSING ---
CALLED [facility]. TALKED TO JOANN IN BED CONTROL. HE TOLD US TO ADMIT PATIENT AND THEY WOULD FOLLOW UP WITH HIM TOMORROW.
[2017-09-01 17:57] LABS: POSITIVE COUNT NO; POSITIVE DIFFERENTIAL NO; POSITIVE MORPHOLOGY NO
[2017-09-01 18:04] LABS: Anion Gap 7 (5-15); BUN 22 mg/dL (7-18); Calcium,Total 7.9 mg/dL (8.5-10.1); Chloride 103 mmol/L (98-107); EST Glomerular Filtration Rate 79 mL/min (>60); Est Glom Filt Rate - Afr Amer 96 mL/min (>60); Estimated Creatinine Clearance 74.01 ml/min; Glucose 211 mg/dL (74-106); Potassium 3.7 mmol/L (3.5-5.1); Sodium Level 143 mmol/L (136-145)
--- NOTE | 2017-09-01 18:26 | ED.VISSUMM ---
- ER Visit Summary Date of Service: 09/01/17 Chief Complaint: Midsternal heaviness tightness with nausea and diaphoresis that awoke patient from sleep. History of Present Illness: The patient is a 67 M He has had prior episodes. His most recent cardiac catheterization was February 2017 which reveals multiple occluded [place] vessels with patent grafts and retro-fill of the occluded vessels. There are was a 10-25% lesion of the left main and a 50% lesion of the circumflex vessel. There was minimal disease in the proximal LAD. Patient did take nitro with mild improvement. Patient has a past medical history CVA, CAD, CHF, COPD, type 2 diabetes, hypertension and hypercholesterolemia. He does have obstructive sleep apnea as well. Left ventricular ejection fraction was 55% on February 2017. Physical Examination: vital signs are remarkable and elevated blood pressure 139/67. He is not hypoxic on oxygen. Monitor reveals a paced rhythm, atrial. BMI is 36.7. He has a hoarse voice. Head is atraumatic normocephalic. Pupils equal round reactive. Sclerae anicteric. Conjunctivae noninjected. TMs normal. Nares patent without discharge. Posterior pharyngeal erythema XA. Uvula midline. Trachea midline. There is no stridor. There is no carotid bruit. Heart is regular without murmur, gallop or rub. Lungs are clear to auscultation. Abdomen is soft nontender. Does have edema the lower extremity and reports the edema is worse than normal. Neuro exam is nonfocal. Test Results: EKG reveals atrial paced rhythm with nonspecific ST-T wave changes and intraventricular conduction delay which is essentially unchanged from July 06, 2017. Portable chest x-ray reveals cardiomegaly and prominent mediastinal vessels suggestive of pulmonary hypertension. Median sternotomy wires noted. Dual-chamber pacemaker noted. His chest x-ray is essentially unchanged from March 10, 2017. CBC is unremarkable. BMP is remarkable for glucose of 211. Troponin is less than 0.015. Emergency Department Course and Treatment: To evaluate patient's symptoms EKG, chest and blood work was obtained to evaluate for cardiac versus pulmonary versus other cause. Treatment Plan: Patient's heart score is 6 which is moderate risk and a 12-16.6% Incident of major adverse cardiac event. Therefore the hospitalist was paged for admission[facility] Disposition: PCU Impression: Chest pain at rest History of coronary disease History of type 2 diabetes History of hypertension History of hypercholesterolemia History of congestive heart failure History of CVA History of COPD This note was generated with [employer] dictation software. It may contain incorrect words, spelling, and punctuation that were not noted in review of the chart prior to signing ED Disposition - Plan for ED Patient: Chief Complaint: Chest Pain [facility] [Primary [facility] Provider] -
--- NOTE | 2017-09-01 18:31 | ED.DCSUM_ITS ---
- ER Visit Summary Date of Service: 09/01/17 Chief Complaint: Midsternal heaviness tightness with nausea and diaphoresis that awoke patient from sleep. History of Present Illness: The patient is a 67 M He has had prior episodes. His most recent cardiac catheterization was February 2017 which reveals multiple occluded [place] vessels with patent grafts and retro-fill of the occluded vessels. There are was a 10-25% lesion of the left main and a 50% lesion of the circumflex vessel. There was minimal disease in the proximal LAD. Patient did take nitro with mild improvement. Patient has a past medical history CVA, CAD, CHF, COPD, type 2 diabetes, hypertension and hypercholesterolemia. He does have obstructive sleep apnea as well. Left ventricular ejection fraction was 55% on February 2017. Physical Examination: vital signs are remarkable and elevated blood pressure 139 /67. He is not hypoxic on oxygen. Monitor reveals a paced rhythm, atrial. BMI is 36.7. He has a hoarse voice. Head is atraumatic normocephalic. Pupils equal round reactive. Sclerae anicteric. Conjunctivae noninjected. TMs normal. Nares patent without discharge. Posterior pharyngeal erythema XA. Uvula midline. Trachea midline. There is no stridor. There is no carotid bruit. Heart is regular without murmur, gallop or rub. Lungs are clear to auscultation. Abdomen is soft nontender. Does have edema the lower extremity and reports the edema is worse than normal. Neuro exam is nonfocal. Test Results: EKG reveals atrial paced rhythm with nonspecific ST-T wave changes and intraventricular conduction delay which is essentially unchanged from July 06, 2017. Portable chest x-ray reveals cardiomegaly and prominent mediastinal vessels suggestive of pulmonary hypertension. Median sternotomy wires noted. Dual-chamber pacemaker noted. His chest x-ray is essentially unchanged from March 10, 2017. CBC is unremarkable. BMP is remarkable for glucose of 211. Troponin is less than 0.015. Emergency Department Course and Treatment: To evaluate patient's symptoms EKG, chest and blood work was obtained to evaluate for cardiac versus pulmonary versus other cause. Treatment Plan: Patient's heart score is 6 which is moderate risk and a 12-16.6 % Incident of major adverse cardiac event. Therefore the hospitalist was paged for admission. [facility] Disposition: PCU Impression: Chest pain at rest History of coronary disease History of type 2 diabetes History of hypertension History of hypercholesterolemia History of congestive heart failure History of CVA History of COPD This note was generated with [employer] dictation software. It may contain incorrect words, spelling, and punctuation that were not noted in review of the chart prior to signing ED Disposition - Plan for ED Patient: Chief Complaint: Chest Pain [facility] [[facility]] -
--- NOTE | 2017-09-01 19:07 | PCM.HP.STD ---
Problem List (1) Unstable angina Status: Acute History of Present Illness Date of Admission: 09/01/17 Chief Complaint: chest pain. The patient is a 67 year old M awoke today with chest pain and diaphoresis. Patient describes chest pain as across his chest. Patient did have some dizziness yesterday but not today. Does complain of shortness of breath as well. Patient states that this is similar to when he has had heart attacks in the past. Patient presented to the emergency room and had a normal workup. EKG was paced. If this year. Did note to have some in-stent stenosis of his proximal circumflex of 85% followed by a total subtotal occlusion. 50% of the distal circumflex. Grafts appear to be patent. Patient be admitted for further chest pain on his stable angina workup. [] Past Medical History Past Medical History (Chronic Problems): Chronic Problems Hyperlipidemia (Chronic) Hypertension (Chronic) Obesity (Chronic) Pacemaker (Chronic) 2001 Weakness of limb (Chronic) Left-sided weakness, chronic Chronic respiratory failure (Chronic) baseline 3L continuously CAD (coronary artery disease) (Chronic) Cardiac catheterization 02/24/2017normal LV size should not, EF 55%, [place] multivessel CAD, patent SVG to diagonal 1, OM 2, and RCA, MASON to LAD previously reported as atretic/nonfunctional (not reevaluated at that time), advised medical therapy DM type 2 (diabetes mellitus, type 2) (Chronic) History of smoking (Chronic) Obstructive sleep apnea (Chronic) Seizure (Chronic) left sided tingling left body (Chronic) S/P CABG (coronary artery bypass graft) (Chronic) S/P PTCA (percutaneous transluminal coronary angioplasty) (Chronic) CVA (cerebral vascular accident) (Chronic) Residual left-sided weakness Allergies ezetimibe Allergy (Verified 09/01/17 16:51) Unknown Fish Containing Products Allergy (Verified 09/01/17 16:51) Unknown glyburide Allergy (Verified 09/01/17 16:51) Unknown lisinopril Allergy (Verified 09/01/17 16:51) Unknown metoprolol Allergy (Verified 09/01/17 16:51) Unknown simvastatin Allergy (Verified 09/01/17 16:51) Unknown Home Medications: Ambulatory Orders Medication Instructions Recorded Atenolol [Tenormin (beta theron)] 100 mg PO DAILY 08/09/16 Atorvastatin Calcium [Lipitor] 80 mg PO QHS 08/09/16 Finasteride [Proscar] 5 mg PO DAILY 08/09/16 Furosemide [Lasix] 20 mg PO DAILY 08/09/16 Multivitamin with Minerals/Lut 1 tab PO DAILY 08/09/16 [Pub Multivitamin 50 Plus Tab] Pantoprazole Sodium [Protonix] 40 mg PO BID 08/09/16 Tamsulosin HCl [Flomax] 0.8 mg PO QHS 08/09/16 Clopidogrel Bisulfate [Clopidogrel] 75 mg PO DAILY 12/25/16 Alprostadil [Caverject] 20 mcg IC X1 PRN 02/22/17 Dextrose [Glucose] 4 gm PO X1 PRN 02/22/17 Ketoconazole 1 applicatio TOPICAL DAILY 02/22/17 levETIRAcetam tablet [Keppra 500 mg PO BID 07/06/17 tablet] Acetaminophen [Tylenol] 325 mg PO Q6H PRN PRN 09/01/17 Aspirin E.C. [Ecotrin] 81 mg PO DAILY@0800 09/01/17 Cholecalciferol (VIT D3) [Vitamin 3,000 unit PO DAILY 09/01/17 D] Escitalopram Oxalate [Lexapro] 10 mg PO DAILY 09/01/17 Insulin Lispro [Humalog Kwikpen See Protocol SQ TIDCM 09/01/17 U-200] Ranolazine [Ranexa] 1,000 mg PO BID 09/01/17 Surgical History: angioplasty, coronary bypass surgery, pacemaker implantation, - - cabg,cholecystectemy, hernia, left knee, 4 stents Psychiatric History: No pertinent psych hx, - - possible conversion disorder anxiety Smoking Status: Former smoker Tobacco Use: Non-smoker Alcohol: None Drugs: None - *Family History Maternal History Items: Heart Disease Paternal History Items: Unknown Review of Systems Constitutional: Denies: Chills, Fever, Weight Change Eyes: Denies: Blurred vision, Double vision HEENT: Denies: Head Aches, Sinus Congestion, Sinus Drainage Cardiovascular: Reports: Chest Pain, Edema Respiratory: Reports: Shortness of Breath. Denies: Cough, Sputum production Gastrointestinal: Denies: Abdominal Pain, Nausea, Vomiting Genitourinary: Denies: Dysuria Musculoskeletal: Denies: Joint Pain, Joint Tenderness Skin: Denies: Rash, Wounds Neurological: Denies: Numbness, Tingling, Focal weakness Hematologic/ Lymphatic: Denies: Easy Bruising, Easy Bleeding, Hx of blood clot Comment: All review of systems are negative except as mentioned in the history of present illness and the other review of systems. VTE Information - Inpt Only VTE Present on Admission: No VTE Mechan Device Prophylaxis: None VTE Pharm Prophylaxis ordered?: Yes Patient Problems: Active and Suspected Problems Unstable angina (Acute) - Physical Exam General: Alert, Cooperative, No apparent distress, - - . Speech is very thick and difficult to understand at times. HEENT: Atraumatic, Normocephalic Oral: Moist Mucosa, No Gingival or Mucosal Lesions/ Ulcerations Neck: No Nodes, Thyroid Normal Size and Texture Lungs: Clear to auscultation, Normal air movement, No rhonchi, No wheeze Cardiovascular: Regular rate, Regular Rhythm, Normal S1, Normal S2, No murmurs, - - No reproducible anterior chest wall tenderness Abdomen: Bowel Sounds Present, Soft, Non Tender, Non-Distended Extremities: No edema, No Calf Tenderness Skin: No rashes, No breakdown Musculoskeletal: No Tenderness to Palpation of Joints or Extremities, No Muscle Wasting Psych/Mental Status: Normal Affect, Appropriate Vital Signs Temp Pulse Resp BP Pulse Ox 36.6 C 60 18 137/67 H 97 09/01/17 16:52 09/01/17 18:11 09/01/17 18:11 09/01/17 18:11 09/01/17 18:11 Oxygen Flow Rate (L/min) 2 Oxygen Delivery Method Nasal Cannula Weight: 116 kg Body Mass Index (BMI) 36.6 Finger Stick Blood Glucose 309 Laboratory Tests Past 24 Hrs 09/01/17 09/01/17 17:20 17:20 WBC 5.1 RBC 3.91 L Hgb 13.0 Hct 38.0 L MCV 97.2 H MCH 33.2 H MCHC 34.2 RDW 13.7 RDW Differential 46.4 H Plt Count 136 L MPV 10.6 Immature Gran % (Auto) 0.000 Neut % (Auto) 71.0 H Lymph % (Auto) 20.2 [place] % (Auto) 6.8 Eos % (Auto) 1.8 Baso % (Auto) 0.2 Absolute Neuts (auto) 3.7 Absolute Lymphs (auto) 1.04 Total Counted Not Reportable Sodium 143 Potassium 3.7 Chloride 103 Carbon Dioxide 33.0 H Anion Gap 7 BUN 22 H Creatinine 1.00 Estim Creat Clear Calc 74.01 Est GFR (MDRD) Af Amer 96 Est GFR (MDRD) Non-Af 79 BUN/Creatinine Ratio 22.0 H Glucose 211 H Calcium 7.9 L Troponin I < 0.015 Clinical Impression(s) from Imaging Studies Chest X-Ray 09/01/17 17:45 IMPRESSION: Mild bilateral perihilar interstitial thickening greater on the left. No evidence for focal infiltrate or gross pulmonary edema Electronically Signed: Zeb Segura MD at 18:29 EDT , Service support , EKG was atrial paced and not otherwise further characterize. Assessment/Plan All Active Problems Unstable angina (Acute) Hematuria (Resolved) Chest pain (Acute) Aphasia (Acute) Acute ischemic stroke (Acute) 1. Unstable angina Patient stating that this is similar to when he has had a myocardial infarctions before Patient did not have a normal heart catheterization but was medically optimized back in February. Patient will have his troponins cycled and I will clear stress test in the morning. If evidence of myocardial infarction with elevated troponins or if an abnormal stress test then we will consult cardiology 2. Diabetes mellitus type 2 Continue with his home medications plus sliding scale 3. DVT prophylaxis with Lovenox Code Visit Inpatient E&M: 85806 Init Hosp L2
--- NOTE | 2017-09-01 19:13 | HP.PCM_ITS ---
Problem List (1) Unstable angina Status: Acute History of Present Illness Date of Admission: 09/01/17 Chief Complaint: chest pain. The patient is a 67 year old M awoke today with chest pain and diaphoresis. Patient describes chest pain as across his chest. Patient did have some dizziness yesterday but not today. Does complain of shortness of breath as well. Patient states that this is similar to when he has had heart attacks in the past. Patient presented to the emergency room and had a normal workup. EKG was paced. If this year. Did note to have some in-stent stenosis of his proximal circumflex of 85% followed by a total subtotal occlusion. 50% of the distal circumflex. Grafts appear to be patent. Patient be admitted for further chest pain on his stable angina workup. [] Past Medical History Past Medical History (Chronic Problems): Chronic Problems Hyperlipidemia (Chronic) Hypertension (Chronic) Obesity (Chronic) Pacemaker (Chronic) 2001 Weakness of limb (Chronic) Left-sided weakness, chronic Chronic respiratory failure (Chronic) baseline 3L continuously CAD (coronary artery disease) (Chronic) Cardiac catheterization 02/24/2017?normal LV size should not, EF 55%, [place] multivessel CAD, patent SVG to diagonal 1, OM 2, and RCA, MASON to LAD previously reported as atretic/nonfunctional (not reevaluated at that time), advised medical therapy DM type 2 (diabetes mellitus, type 2) (Chronic) History of smoking (Chronic) Obstructive sleep apnea (Chronic) Seizure (Chronic) left sided tingling left body (Chronic) S/P CABG (coronary artery bypass graft) (Chronic) S/P PTCA (percutaneous transluminal coronary angioplasty) (Chronic) CVA (cerebral vascular accident) (Chronic) Residual left-sided weakness Allergies ezetimibe Allergy (Verified 09/01/17 16:51) Unknown Fish Containing Products Allergy (Verified 09/01/17 16:51) Unknown glyburide Allergy (Verified 09/01/17 16:51) Unknown lisinopril Allergy (Verified 09/01/17 16:51) Unknown metoprolol Allergy (Verified 09/01/17 16:51) Unknown simvastatin Allergy (Verified 09/01/17 16:51) Unknown Home Medications: Ambulatory Orders Medication Instructions Recorded Atenolol [Tenormin (beta theron)] 100 mg PO DAILY 08/09/16 Atorvastatin Calcium [Lipitor] 80 mg PO QHS 08/09/16 Finasteride [Proscar] 5 mg PO DAILY 08/09/16 Furosemide [Lasix] 20 mg PO DAILY 08/09/16 Multivitamin with Minerals/Lut 1 tab PO DAILY 08/09/16 [Pub Multivitamin 50 Plus Tab] Pantoprazole Sodium [Protonix] 40 mg PO BID 08/09/16 Tamsulosin HCl [Flomax] 0.8 mg PO QHS 08/09/16 Clopidogrel Bisulfate [Clopidogrel] 75 mg PO DAILY 12/25/16 Alprostadil [Caverject] 20 mcg IC X1 PRN 02/22/17 Dextrose [Glucose] 4 gm PO X1 PRN 02/22/17 Ketoconazole 1 applicatio TOPICAL DAILY 02/22/17 levETIRAcetam tablet [Keppra 500 mg PO BID 07/06/17 tablet] Acetaminophen [Tylenol] 325 mg PO Q6H PRN PRN 09/01/17 Aspirin E.C. [Ecotrin] 81 mg PO DAILY@0800 09/01/17 Cholecalciferol (VIT D3) [Vitamin 3,000 unit PO DAILY 09/01/17 D] Escitalopram Oxalate [Lexapro] 10 mg PO DAILY 09/01/17 Insulin Lispro [Humalog Kwikpen See Protocol SQ TIDCM 09/01/17 U-200] Ranolazine [Ranexa] 1,000 mg PO BID 09/01/17 Surgical History: angioplasty, coronary bypass surgery, pacemaker implantation, - - cabg,cholecystectemy, hernia, left knee, 4 stents Psychiatric History: No pertinent psych hx, - - possible conversion disorder anxiety Smoking Status: Former smoker Tobacco Use: Non-smoker Alcohol: None Drugs: None - *Family History Maternal History Items: Heart Disease Paternal History Items: Unknown Review of Systems Constitutional: Denies: Chills, Fever, Weight Change Eyes: Denies: Blurred vision, Double vision HEENT: Denies: Head Aches, Sinus Congestion, Sinus Drainage Cardiovascular: Reports: Chest Pain, Edema Respiratory: Reports: Shortness of Breath. Denies: Cough, Sputum production Gastrointestinal: Denies: Abdominal Pain, Nausea, Vomiting Genitourinary: Denies: Dysuria Musculoskeletal: Denies: Joint Pain, Joint Tenderness Skin: Denies: Rash, Wounds Neurological: Denies: Numbness, Tingling, Focal weakness Hematologic/ Lymphatic: Denies: Easy Bruising, Easy Bleeding, Hx of blood clot Comment: All review of systems are negative except as mentioned in the history of present illness and the other review of systems. VTE Information - Inpt Only VTE Present on Admission: No VTE Mechan Device Prophylaxis: None VTE Pharm Prophylaxis ordered?: Yes Patient Problems: Active and Suspected Problems Unstable angina (Acute) - Physical Exam General: Alert, Cooperative, No apparent distress, - - . Speech is very thick and difficult to understand at times. HEENT: Atraumatic, Normocephalic Oral: Moist Mucosa, No Gingival or Mucosal Lesions/ Ulcerations Neck: No Nodes, Thyroid Normal Size and Texture Lungs: Clear to auscultation, Normal air movement, No rhonchi, No wheeze Cardiovascular: Regular rate, Regular Rhythm, Normal S1, Normal S2, No murmurs, - - No reproducible anterior chest wall tenderness Abdomen: Bowel Sounds Present, Soft, Non Tender, Non-Distended Extremities: No edema, No Calf Tenderness Skin: No rashes, No breakdown Musculoskeletal: No Tenderness to Palpation of Joints or Extremities, No Muscle Wasting Psych/Mental Status: Normal Affect, Appropriate Vital Signs Temp Pulse Resp BP Pulse Ox 36.6 C 60 18 137/67 H 97 09/01/17 16:52 09/01/17 18:11 09/01/17 18:11 09/01/17 18:11 09/01/17 18:11 Oxygen Flow Rate (L/min) 2 Oxygen Delivery Method Nasal Cannula Weight: 116 kg Body Mass Index (BMI) 36.6 Finger Stick Blood Glucose 309 Laboratory Tests Past 24 Hrs 09/01/17 09/01/17 17:20 17:20 WBC 5.1 RBC 3.91 L Hgb 13.0 Hct 38.0 L MCV 97.2 H MCH 33.2 H MCHC 34.2 RDW 13.7 RDW Differential 46.4 H Plt Count 136 L MPV 10.6 Immature Gran % (Auto) 0.000 Neut % (Auto) 71.0 H Lymph % (Auto) 20.2 [place] % (Auto) 6.8 Eos % (Auto) 1.8 Baso % (Auto) 0.2 Absolute Neuts (auto) 3.7 Absolute Lymphs (auto) 1.04 Total Counted Not Reportable Sodium 143 Potassium 3.7 Chloride 103 Carbon Dioxide 33.0 H Anion Gap 7 BUN 22 H Creatinine 1.00 Estim Creat Clear Calc 74.01 Est GFR (MDRD) Af Amer 96 Est GFR (MDRD) Non-Af 79 BUN/Creatinine Ratio 22.0 H Glucose 211 H Calcium 7.9 L Troponin I < 0.015 Clinical Impression(s) from Imaging Studies Chest X-Ray 09/01/17 17:45 IMPRESSION: Mild bilateral perihilar interstitial thickening greater on the left. No evidence for focal infiltrate or gross pulmonary edema Electronically Signed: Zeb Segura MD at 18:29 EDT , Service support , EKG was atrial paced and not otherwise further characterize. Assessment/Plan All Active Problems Unstable angina (Acute) Hematuria (Resolved) Chest pain (Acute) Aphasia (Acute) Acute ischemic stroke (Acute) 1. Unstable angina * Patient stating that this is similar to when he has had a myocardial infarctions before * Patient did not have a normal heart catheterization but was medically optimized back in February. * Patient will have his troponins cycled and I will clear stress test in the morning. * If evidence of myocardial infarction with elevated troponins or if an abnormal stress test then we will consult cardiology 2. Diabetes mellitus type 2 * Continue with his home medications plus sliding scale 3. DVT prophylaxis with Lovenox Code Visit Inpatient E&M: 55584 Init Hosp L2
--- NOTE | 2017-09-01 20:39 | EKG12_ITS ---
Test Reason : CP REPEAT Blood Pressure : / mmHG Vent. Rate : 060 BPM Atrial Rate : 060 BPM P-R Int : 278 ms QRS Dur : 124 ms QT Int : 434 ms P-R-T Axes : 000 -08 098 degrees QTc Int : 434 ms Atrial-paced rhythm with prolonged AV conduction Nonspecific ST and T wave abnormality Abnormal ECG When compared with ECG of 01-SEP-2017 16:49, MANUAL COMPARISON REQUIRED, DATA IS UNCONFIRMED Confirmed by PADILLA GUALLPA, CALI ([id number]), magazine editor MODESTA FISHMAN ([id number]) on 09/04/2017 1:53:08 PM Referred By: JEFFERY Confirmed By:CALI CAUSEY MD
--- NOTE | 2017-09-01 20:43 | NURSING ---
OK per Dr. RICARDO TO STOP ER orders that were not checked as stop.
[2017-09-01] MEDS: Morphine 2 MG/ML Syringe IV (21:38)
[2017-09-01 23:31] LABS: Bedside Glucose 198 mg/dL (70-110)
[2017-09-01] MEDS: levETIRAcetam 500 MG Tablet PO (23:57)
[2017-09-01] MEDS: Ranolazine 500 MG Tablet 1000 MG PO (23:57)
[2017-09-01] MEDS: Atorvastatin Calcium 80 MG Tablet PO (23:57)
[2017-09-01] MEDS: Pantoprazole Sodium 40 MG Tablet PO (23:57)
[2017-09-01] MEDS: Tamsulosin HCl 0.4 MG Capsule 0.8 MG PO (23:57)
[2017-09-02] VITALS (16 sets, daily range): BP systolic 125–149; BP diastolic 62–86; PULSE 60–70; RESP 15–20; TEMP 36.1–36.7; O2SAT 96–99
[2017-09-02 05:20] LABS: Hematocrit 37.6 % (40-54); Hemoglobin 12.7 g/dl (13.0-16.5); Mean Corp Hgb Conc 33.8 g/gl (32-36); Mean Corpuscular Hgb 32.7 pg (27.0-32.0); Mean Corpuscular Volume 96.9 fL (80-94); Mean Platelet Vol. 10.2 fl (6.2-12.0); Platelet Count 116 K/mm3 (150-450); RBC Distribution Width CV 13.8 % (11.6-14.6); RBC Distribution Width SD 46.6 fl (35.1-43.9); Red Blood Count 3.88 M/mm3 (4.6-6.2); White Blood Count 4.8 K/mm3 (4.4-11.0)
--- NOTE | 2017-09-02 05:27 | NURSING ---
pT. FOUND Unresponsive by [facility]. Sternal rubbed pt. Eyes open but pt. staring and nonverbal. No response to pain. MANAGER TRANSIT called.
[2017-09-02 05:29] LABS: Scan Indicated on CBC? Y/N NO
--- NOTE | 2017-09-02 05:30 | EKG12_ITS ---
Test Reason : AM EKG Blood Pressure : / mmHG Vent. Rate : 063 BPM Atrial Rate : 063 BPM P-R Int : 258 ms QRS Dur : 118 ms QT Int : 458 ms P-R-T Axes : 000 -14 072 degrees QTc Int : 468 ms Atrial-paced rhythm with prolonged AV conduction Nonspecific ST and T wave abnormality Abnormal ECG When compared with ECG of 01-SEP-2017 19:58, MANUAL COMPARISON REQUIRED, DATA IS UNCONFIRMED Confirmed by PADILLA GUALLPA, CALI ([id number]), photo editor MODESTA FISHMAN ([id number]) on 09/04/2017 1:51:41 PM Referred By: JEFFERY Confirmed By:CALI CAUSEY MD
--- NOTE | 2017-09-02 05:38 | CT_ITS ---
STUDY: CT BRAIN WITHOUT CONTRAST REASON FOR EXAM: Male, 67 years old. Altered mental status. History of seizure. RADIATION DOSAGE (If Supplied By Facility): CTDIvol = ( 44.99 ) mGy, DLP = ( 829.85 ) mGycm TECHNIQUE: Transaxial CT imaging of the brain was performed without administration of intravenous contrast material. Individualized dose optimization techniques were used for this CT. COMPARISON: 07/06/2017. FINDINGS: Normal soft tissue structures. Normal calvarium. There is mild cerebral atrophy with widening of the extra-axial spaces and ventricular dilatation. There are areas of decreased attenuation within the white matter tracts of the supratentorial brain, consistent with microvascular disease changes. Normal basal ganglia and thalami. Normal brainstem. Normal cerebellum. There is no intracranial hemorrhage. There are no findings of an acute ischemic infarction. Normal visualized paranasal sinuses. CT/Brain/Head without Contrast IMPRESSION: Chronic involutional changes of the brain. No demonstrated acute intracranial process. Electronically Signed: Andrea Rocha MD at 6:42 EDT , Service support ,
[2017-09-02] MEDS: LORazepam 2 MG/ML Syringe (05:43)
[2017-09-02 05:51] LABS: Bedside Glucose 203 mg/dL (70-110)
--- NOTE | 2017-09-02 05:52 | PCM.PN.BLA ---
Progress Note Rapid response note: Patient with a history of seizure who was admitted because of chest pain was not responding to commands so a rapid response was called. Blood pressure 147/83; pulse 63; temperature 97.1; respiratory rate 12; oxygen saturation above 90 on nasal cannula (2-4L). Patient was noted to have a blank stare with his tongue rolled inwards: Chest: Diminished heart sounds (likely due to body hab Lungs clear but diminished Extremities: Normal pulses Neuro: Patient will follow commands Workup Troponin so far negative. Repeat troponin. EKG showed paced rhythm Blood glucose in the normal range. Assessment Differential diagnosis nonconvulsive seizure, hypoactive delirium, Catatonia or other CT head ordered Routine EEG ordered Morning BMP pending CBC ordered Ativan 2 mg x1 stat Ativan 2 mg as needed every 5 minutes with a probable seizure activity. on Keppra. Patient did not receive scheduled Keppra last night Keppra 1000 mg IV bolus ordered
[2017-09-02 05:53] LABS: Anion Gap 6 (5-15); BUN 22 mg/dL (7-18); BUN/Creat Ratio 25.9 RATIO (10-20); Calcium,Total 7.7 mg/dL (8.5-10.1); Chloride 102 mmol/L (98-107); Cholesterol 88 mg/dL (200); Creatinine, Serum 0.85 mg/dL (0.70-1.30); EST Glomerular Filtration Rate 95 mL/min (>60); Est Glom Filt Rate - Afr Amer 115 mL/min (>60); Estimated Creatinine Clearance 87.08 ml/min; Glucose 213 mg/dL (74-106); High Density Lipoprotein 38 mg/dL; Potassium 3.9 mmol/L (3.5-5.1); Sodium Level 142 mmol/L (136-145); Triglycerides 178 mg/dL; Very Low Density Lipoprotein 36 mg/dL (5-40)
[2017-09-02 06:01] LABS: International Normalized Ratio 1.2; Prothrombin Time (Protime)PT. 14.7 SECONDS (11.7-14.9)
[2017-09-02 06:37] LABS: Albumin, Serum 3.4 g/dL (3.2-5.0)
[2017-09-02] MEDS: levETIRAcetam IV 1,000 MG/100 ML BAG 400 MG IV (06:47)
[2017-09-02 07:54] LABS: AST(SGOT) 24 U/L (15-37)
--- NOTE | 2017-09-02 11:08 | PN_ITS ---
Addendum entered and electronically signed by DEV Aragon 09/02/17 11:56: Code Visit addendum: cannot have mri 2/2 pacemaker. Original Note: Patient Problems: Active and Suspected Problems Unstable angina (Acute) Subjective: Pt found unresponsive this AM. GATHERING MACHINE FEEDER called. Hx of unresponsive seizure disorder. Keppra bolus given. Now appears post ictal. Very lethargic. Able to shake head and nod. Not speaking at all. States he still has chest pain. He has had multiple admissions with chest pain and unresponsive seizure activity. In february he had a negative heart cath for this. Currently not present. - Physical Exam General: Alert, Oriented x3, Cooperative, Lethargic HEENT: Atraumatic, PERRLA, EOMI, Normocephalic Neck: Supple, No JVD, Negative Carotid Bruits Lungs: Clear to auscultation, Normal air movement Cardiovascular: Regular rate, No murmurs Abdomen: Bowel Sounds Present, Soft, Non Tender Extremities: No edema, Capillary Refill Less than 3 Seconds Skin: No rashes, No breakdown Musculoskeletal: No Tenderness to Palpation of Joints or Extremities Neurological: Cranial nerves II-XII grossly intact Vital Signs Temp Pulse Resp BP Pulse Ox 97.2 F L 60 16 126/66 H 97 09/02/17 08:00 09/02/17 08:00 09/02/17 08:00 09/02/17 08:00 09/02/17 08:00 Oxygen Flow Rate (L/min) 2 Oxygen Delivery Method Nasal Cannula Weight: 249 lb 9.012 oz Body Mass Index (BMI) 35.8 Intake and Output for Last 24 Hours 08/31/17 09/01/17 09/02/17 23:59 23:59 23:59 Intake Total 200 / 200 0 / 0 Output Total 125 / 125 0 / 0 Balance 75 / 75 0 / 0 Laboratory Tests Past 24 Hrs 09/01/17 09/02/17 09/02/17 21:32 00:06 05:00 WBC 4.8 RBC 3.88 L Hgb 12.7 L Hct 37.6 L MCV 96.9 H MCH 32.7 H MCHC 33.8 RDW 13.8 RDW Differential 46.6 H Plt Count 116 L MPV 10.2 PT INR APTT Sodium Potassium Chloride Carbon Dioxide Anion Gap BUN Creatinine Estim Creat Clear Calc Est GFR (MDRD) Af Amer Est GFR (MDRD) Non-Af BUN/Creatinine Ratio Glucose Calcium AST Troponin I < 0.015 < 0.015 Albumin Triglycerides Cholesterol LDL Cholesterol VLDL Cholesterol HDL Cholesterol 09/02/17 09/02/17 09/02/17 05:00 05:00 05:00 WBC RBC Hgb Hct MCV MCH MCHC RDW RDW Differential Plt Count MPV PT 14.7 INR 1.2 APTT 38.0 H Sodium 142 Potassium 3.9 Chloride 102 Carbon Dioxide 34.0 H Anion Gap 6 BUN 22 H Creatinine 0.85 Estim Creat Clear Calc 87.08 Est GFR (MDRD) Af Amer 115 Est GFR (MDRD) Non-Af 95 BUN/Creatinine Ratio 25.9 H Glucose 213 H Calcium 7.7 L AST Troponin I < 0.015 Albumin 3.4 Triglycerides 178 Cholesterol 88 LDL Cholesterol 14 VLDL Cholesterol 36 HDL Cholesterol 38 L 09/02/17 05:00 WBC RBC Hgb Hct MCV MCH MCHC RDW RDW Differential Plt Count MPV PT INR APTT Sodium Potassium Chloride Carbon Dioxide Anion Gap BUN Creatinine Estim Creat Clear Calc Est GFR (MDRD) Af Amer Est GFR (MDRD) Non-Af BUN/Creatinine Ratio Glucose Calcium AST 24 Troponin I Albumin Triglycerides Cholesterol LDL Cholesterol VLDL Cholesterol HDL Cholesterol POC Glucose 09/02/17 09/01/17 05:27 21:36 POC Glucose 203 H 198 H Medical Necessity - Tobacco Use Smoking Status: Former smoker Tobacco Use: Non-smoker Assessment/Plan All Active Problems Unstable angina (Acute) Hematuria (Resolved) Chest pain (Acute) Aphasia (Acute) Acute ischemic stroke (Acute) 1. Seizure disorder - unresponsive seizure c/w patients hx of seizure activity. Now post ictal. reportedly normal yesterday. s/p keppra bolus. inc home dose. consult neuro. EEG pending. Multiple admissions with seizure and chest pain. 2. Chest pain - c/w hx of chest pain going along with seizure activity. Workup so far negative. Negative cath in february. cancel stress test. Negative EKG, neg tele, neg troponin x3 3. CAD - conitnue asa, plavix, ranexa, statin. LDL at goal. Prior CABG, stents. Has pacemaker. 4. Anemia/Thrombocytopenia - trend 5. DMt2 - continue current regimen 6. Chronic hypoxic respiratory failure - baseline 3 lpm 7. Hx EKATERINA 8. Hx CVA with residual left sided weakness. asa/plavix/statin DVT ppx: lovenox DC planning: PTOT. Neuro consult. This patient was seen by Sridhar Mullins PA-C under the supervision of Doctor Crowe.
[2017-09-02 11:51] LABS: Bedside Glucose 230 mg/dL (70-110)
--- NOTE | 2017-09-02 12:08 | EEG ---
- Electroencephalogram Date of service 09/02/17 History EEG is being done in this 67 yr M to rule out seizures EEG Description: This is an 18 channel EEG with 10-20 lead placement system. Bipolar montages, Referential and Circumferential montages were reviewed. Photic stimulation was performed but Hyperventilation could not be performed. The posterior dominant background rhythm was absent. Photo stimulation did not elicit any driving response or any abnormal photoparoxysmal response, Hyperventilation could not be performed. Predominantly sleep record. Sleep/drowsiness was identified. There was generalized background slowing in the theta frequency range of 6 Hz. There was no epileptiform discharges or electrographic seizures noted during this recording. EEG Interpretation This is an abnormal EEG due to the presence of mild generalized slowing. This can be seen in generalized cerebral dysfunction like metabolic/toxic encephalopathy. Clinical correlation is advised. There is no epileptiform discharges or electrographic seizures noted during the record.
--- NOTE | 2017-09-02 12:12 | EEG_ITS ---
- Electroencephalogram Date of service 09/02/17 History EEG is being done in this 67 yr M to rule out seizures EEG Description: This is an 18 channel EEG with 10-20 lead placement system. Bipolar montages, Referential and Circumferential montages were reviewed. Photic stimulation was performed but Hyperventilation could not be performed. The posterior dominant background rhythm was absent. Photo stimulation did not elicit any driving response or any abnormal photoparoxysmal response, Hyperventilation could not be performed. Predominantly sleep record. Sleep/ drowsiness was identified. There was generalized background slowing in the theta frequency range of 6 Hz. There was no epileptiform discharges or electrographic seizures noted during this recording. EEG Interpretation This is an abnormal EEG due to the presence of mild generalized slowing. This can be seen in generalized cerebral dysfunction like metabolic/toxic encephalopathy. Clinical correlation is advised. There is no epileptiform discharges or electrographic seizures noted during the record.
--- NOTE | 2017-09-02 13:29 | CASEMGMT ---
Face to Face with patient for initial transition planning/care coordination assessment. RN GRAZYNA introduced self and role at [facility], pt voices understanding and consents to assessment at this time. Pt is lying in bed sleeping without distress at this time. Pt's offers to answer all questions at this time. Care providers, pharmacy, and demographics verified. See attached link. voices no further concerns/needs at this time. Advised pt to ask for CM if any further questions/concerns/needs arise, voices understanding. CM to follow for any further discharge planning/needs. PLAN: [place] [facility]
--- NOTE | 2017-09-02 13:37 | CASEMGMT ---
[facility] if [facility]. [facility] clinical[facility] at [facility] time and [facility] regarding [facility]. Obdulia BERRY CM
[2017-09-02] MEDS: Flumazenil 0.5 MG/5 ML Vial 0.2 MG IV (13:39)
[2017-09-02] MEDS: Escitalopram Oxalate 10 MG Tablet PO (13:52)
[2017-09-02] MEDS: Aspirin E.C. 81 MG Tablet PO (13:52)
[2017-09-02] MEDS: Clopidogrel Bisulfate 75 MG Tablet PO (13:52)
[2017-09-02] MEDS: Furosemide 20 MG Tablet PO (13:52)
[2017-09-02] MEDS: Pantoprazole Sodium 40 MG Tablet PO ×2 (13:53→22:34)
[2017-09-02] MEDS: Enoxaparin 40 MG/0.4 ML Syringe SC (13:53)
[2017-09-02] MEDS: Ranolazine 500 MG Tablet 1000 MG PO ×2 (13:53→22:32)
[2017-09-02] MEDS: Finasteride 5 MG Tablet PO (13:53)
[2017-09-02] MEDS: Atenolol 100 MG Tablet PO (13:53)
[2017-09-02] MEDS: Nitroglycerin Oint 1 INCH PACKET 0.5 INCH TRANSDERM. ×3 (13:59→23:00)
--- NOTE | 2017-09-02 14:17 | CON.PCM_ITS ---
Problem List (1) Breakthrough seizure Status: Suspected Reason for Consult Date of Consultation: 09/02/17 Reason for Consultation: seizure History of Present Illness: The patient is a 67 year old CM with PMH HTN, HLD, DM, H/O Seizures, H/O CVA, CAD s/p stents, CABG, CHF, EKATERINA on CPAP, s/p pacer admitted with chest pain and later had unresponsiveness for which PARK MAINTAINER was called. History could not be obtained from patient since he is very lethargic and drowsy, but is obtained from patient's and medical records. Per patient has spells where he would be unresponsive and pass out which could last for few minutes to longer, has been happening for many years, he would confused for hours or a day after that, has episodes of speech disturbances and difficulty walking with these spells, per he did have seizures in the past and was treated with seizure medications in the past (she did not remember the names of the medication), per he has been on Keppra for the past few months and she feels his spells are controlled but patient is not compliant with medication, per they went camping over the weekend and he probably had not taken his Keppra then, per documentation he had multiple EEGs and ambulatory EEG normal in the past. Per yesterday (09/01/17) after waking from the nap he felt numbness in the whole body and later had chest pain and hence was admitted. At present patient is very lethargic and sleepy but non focal. [] Past Medical History Past Medical History (Chronic Problems): Chronic Problems Hyperlipidemia (Chronic) Hypertension (Chronic) Obesity (Chronic) Pacemaker (Chronic) 2001 Weakness of limb (Chronic) Left-sided weakness, chronic Chronic respiratory failure (Chronic) baseline 3L continuously CAD (coronary artery disease) (Chronic) Cardiac catheterization 02/24/2017?normal LV size should not, EF 55%, [place] multivessel CAD, patent SVG to diagonal 1, OM 2, and RCA, MASON to LAD previously reported as atretic/nonfunctional (not reevaluated at that time), advised medical therapy DM type 2 (diabetes mellitus, type 2) (Chronic) History of smoking (Chronic) Obstructive sleep apnea (Chronic) Seizure (Chronic) left sided tingling left body (Chronic) S/P CABG (coronary artery bypass graft) (Chronic) S/P PTCA (percutaneous transluminal coronary angioplasty) (Chronic) CVA (cerebral vascular accident) (Chronic) Residual left-sided weakness Allergies ezetimibe Allergy (Verified 09/01/17 16:51) Unknown Fish Containing Products Allergy (Verified 09/01/17 16:51) Unknown glyburide Allergy (Verified 09/01/17 16:51) Unknown lisinopril Allergy (Verified 09/01/17 16:51) Unknown metoprolol Allergy (Verified 09/01/17 16:51) Unknown simvastatin Allergy (Verified 09/01/17 16:51) Unknown Home Medications: Ambulatory Orders Medication Instructions Recorded Atenolol [Tenormin (beta theron)] 100 mg PO DAILY 08/09/16 Atorvastatin Calcium [Lipitor] 80 mg PO QHS 08/09/16 Finasteride [Proscar] 5 mg PO DAILY 08/09/16 Furosemide [Lasix] 20 mg PO DAILY 08/09/16 Multivitamin with Minerals/Lut 1 tab PO DAILY 08/09/16 [Pub Multivitamin 50 Plus Tab] Pantoprazole Sodium [Protonix] 40 mg PO BID 08/09/16 Tamsulosin HCl [Flomax] 0.8 mg PO QHS 08/09/16 Clopidogrel Bisulfate [Clopidogrel] 75 mg PO DAILY 12/25/16 Alprostadil [Caverject] 20 mcg IC X1 PRN 02/22/17 Dextrose [Glucose] 4 gm PO X1 PRN 02/22/17 Ketoconazole 1 applicatio TOPICAL DAILY 02/22/17 levETIRAcetam tablet [Keppra 500 mg PO BID 07/06/17 tablet] Acetaminophen [Tylenol Tablet] 325 mg PO Q6H PRN PRN 09/01/17 Aspirin E.C. [Ecotrin] 81 mg PO DAILY@0800 09/01/17 Cholecalciferol (VIT D3) [Vitamin 3,000 unit PO DAILY 09/01/17 D3] Escitalopram Oxalate [Lexapro] 10 mg PO DAILY 09/01/17 Insulin Regular, Human [Humulin R See Protocol SQ TIDCM 09/01/17 U-500 Kwikpen] Ranolazine [Ranexa] 1,000 mg PO BID 09/01/17 Surgical History: angioplasty, coronary bypass surgery, pacemaker implantation, - - cabg,cholecystectemy, hernia, left knee, 4 stents Psychiatric History: No pertinent psych hx, - - possible conversion disorder anxiety Lives: Spouse/ Significant Other Smoking Status: Former smoker Tobacco Use: Non-smoker Alcohol: None Drugs: None - *Family History Maternal History Items: Heart Disease Paternal History Items: Unknown Review of Systems Constitutional: Reports: - - ROS could not be obtained since has AMS - Physical Exam General: - - drowsy, lethargic HEENT: Normocephalic Neck: Supple Lungs: Normal air movement Cardiovascular: Normal S1, Normal S2 Abdomen: Bowel Sounds Present Extremities: No cyanosis Musculoskeletal: No Tenderness to Palpation of Joints or Extremities Neurological: - - drowsy, does not follow VC, limited Neurology examination, moves all extremities, plantars B/L Flexor, sensory/cerebellar/gait cannot be assessed, Reflexes + B/L B/S/T/K/A, pupils BERL Vital Signs Temp Pulse Resp BP Pulse Ox 97.0 F L 60 18 149/86 H 96 09/02/17 14:00 09/02/17 14:00 09/02/17 14:00 09/02/17 14:00 09/02/17 14:00 Oxygen Flow Rate (L/min) 2 Oxygen Delivery Method Nasal Cannula Weight: 113.2 kg Body Mass Index (BMI) 35.8 Intake and Output for Last 24 Hours 08/31/17 09/01/17 09/02/17 23:59 23:59 23:59 Intake Total 200 / 200 0 / 0 Output Total 125 / 125 250 / 250 Balance 75 / 75 -250 / -250 Laboratory Tests Past 24 Hrs 09/01/17 09/02/17 09/02/17 21:32 00:06 05:00 WBC 4.8 RBC 3.88 L Hgb 12.7 L Hct 37.6 L MCV 96.9 H MCH 32.7 H MCHC 33.8 RDW 13.8 RDW Differential 46.6 H Plt Count 116 L MPV 10.2 PT INR APTT Sodium Potassium Chloride Carbon Dioxide Anion Gap BUN Creatinine Estim Creat Clear Calc Est GFR (MDRD) Af Amer Est GFR (MDRD) Non-Af BUN/Creatinine Ratio Glucose Calcium AST Troponin I < 0.015 < 0.015 Albumin Triglycerides Cholesterol LDL Cholesterol VLDL Cholesterol HDL Cholesterol 09/02/17 09/02/17 09/02/17 05:00 05:00 05:00 WBC RBC Hgb Hct MCV MCH MCHC RDW RDW Differential Plt Count MPV PT 14.7 INR 1.2 APTT 38.0 H Sodium 142 Potassium 3.9 Chloride 102 Carbon Dioxide 34.0 H Anion Gap 6 BUN 22 H Creatinine 0.85 Estim Creat Clear Calc 87.08 Est GFR (MDRD) Af Amer 115 Est GFR (MDRD) Non-Af 95 BUN/Creatinine Ratio 25.9 H Glucose 213 H Calcium 7.7 L AST Troponin I < 0.015 Albumin 3.4 Triglycerides 178 Cholesterol 88 LDL Cholesterol 14 VLDL Cholesterol 36 HDL Cholesterol 38 L 09/02/17 05:00 WBC RBC Hgb Hct MCV MCH MCHC RDW RDW Differential Plt Count MPV PT INR APTT Sodium Potassium Chloride Carbon Dioxide Anion Gap BUN Creatinine Estim Creat Clear Calc Est GFR (MDRD) Af Amer Est GFR (MDRD) Non-Af BUN/Creatinine Ratio Glucose Calcium AST 24 Troponin I Albumin Triglycerides Cholesterol LDL Cholesterol VLDL Cholesterol HDL Cholesterol POC Glucose 09/02/17 09/02/17 09/01/17 11:42 05:27 21:36 POC Glucose 230 H 203 H 198 H Assessment/Plan All Active Problems Unstable angina (Ruled-out) Hematuria (Resolved) Chest pain (Acute) The patient is a 67 year old CM with PMH HTN, HLD, DM, H/O Seizures, H/O CVA, CAD s/p stents, CABG, CHF, EKATERINA on CPAP, s/p pacer admitted with chest pain and later had unresponsiveness for which PARK MAINTAINER was called. History could not be obtained from patient since he is very lethargic and drowsy, but is obtained from patient's and medical records. Per patient has spells where he would be unresponsive and pass out which could last for few minutes to longer, has been happening for many years, he would confused for hours or a day after that, has episodes of speech disturbances and difficulty walking with these spells, per he did have seizures in the past and was treated with seizure medications in the past (she did not remember the names of the medication), per he has been on Keppra for the past few months and she feels his spells are controlled but patient is not compliant with medication, per they went camping over the weekend and he probably had not taken his Keppra then, per documentation he had multiple EEGs and ambulatory EEG normal in the past. Patient lives with , does not drive, uses can/walker occasionallyPer yesterday (09/01/17) after waking from the nap he felt numbness in the whole body and later had chest pain and hence was admitted. At present patient is very lethargic and sleepy but non focal. Patient was loaded with Keppra 1 g and his Keppra dose was increased to 1000 mg BID Impression Breakthrough seizure Plan -On Keppra 1 g IV BID -CT head reported negative -EEG- nothing epileptiform -Cannot get MRI brain due to pacer -Per patient does not drive, counseled not to drive for 6 months after seizure -Seizure precautions counseled -Pacer interrogation, will defer to primary team and cardiology -PT/OT -GI/DVT prophylaxis -Fall precautions -Further medical management per primary team. -Follow up with Neurology as outpatient in 4-6 weeks -Please call with questions if any -Thank you for allowing us to participate in patient's care and management I spent 60 minutes taking history, doing physical examination, reviewing medical records, coordinating care and counseling the patient. Code Visit Inpatient E&M: 77816 Init Hosp L3
[2017-09-02] MEDS: Insulin Lispro 100 UNIT/ML INSULN.PEN SQ ×2 (14:50→18:40)
[2017-09-02] MEDS: Glucerna Shake 120 ML LIQUID PO ×2 (14:55→22:49)
[2017-09-02] MEDS: Morphine 2 MG/ML Syringe IV ×2 (17:29→22:44)
[2017-09-02 17:46] LABS: Bedside Glucose 241 mg/dL (70-110)
[2017-09-02] MEDS: Atorvastatin Calcium 80 MG Tablet PO (22:32)
[2017-09-02] MEDS: Tamsulosin HCl 0.4 MG Capsule 0.8 MG PO (22:32)
[2017-09-02] MEDS: levETIRAcetam 1,000 MG Tablet 1000 MG PO (22:33)
[2017-09-02 22:45] LABS: Bedside Glucose 100 mg/dL (70-110)
[2017-09-03] VITALS (9 sets, daily range): BP systolic 100–130; BP diastolic 47–69; PULSE 60–66; RESP 16–20; TEMP 36.6–36.7; O2SAT 91–96
[2017-09-03] MEDS: Nitroglycerin Oint 1 INCH PACKET 0.5 INCH TRANSDERM. ×2 (06:08→13:07)
[2017-09-03] MEDS: Morphine 2 MG/ML Syringe IV ×2 (06:12→13:16)
[2017-09-03 07:15] LABS: Bedside Glucose 123 mg/dL (70-110)
[2017-09-03] MEDS: Atenolol 100 MG Tablet PO (09:36)
[2017-09-03] MEDS: Ranolazine 500 MG Tablet 1000 MG PO (09:36)
[2017-09-03] MEDS: Furosemide 20 MG Tablet PO (09:36)
[2017-09-03] MEDS: Escitalopram Oxalate 10 MG Tablet PO (09:36)
[2017-09-03] MEDS: Glucerna Shake 120 ML LIQUID PO ×2 (09:36→13:15)
[2017-09-03] MEDS: levETIRAcetam 1,000 MG Tablet 1000 MG PO (09:36)
[2017-09-03] MEDS: Pantoprazole Sodium 40 MG Tablet PO (09:37)
[2017-09-03] MEDS: Finasteride 5 MG Tablet PO (09:37)
[2017-09-03] MEDS: Clopidogrel Bisulfate 75 MG Tablet PO (09:37)
[2017-09-03] MEDS: Aspirin E.C. 81 MG Tablet PO (09:37)
[2017-09-03] MEDS: oxyCODONE 5 MG Tablet PO (09:54)
--- NOTE | 2017-09-03 12:30 | CASEMGMT ---
Addendum entered by Vida Karimi 09/03/17 14:49: Pt to be discharged today. This RN CM to room to speak with pt/ regarding homegoing and per , pt has no homegoing needs at this time. Message left with Cee at the [place] transfer center that pt to be discharged home today. Obdulia BERRY CM Original Note: [facility]. Obdulia BERRY CM
[2017-09-03 12:51] LABS: Bedside Glucose 222 mg/dL (70-110)
[2017-09-03] MEDS: Insulin Lispro 100 UNIT/ML INSULN.PEN SQ (13:04)
[2017-09-03] MEDS: 0.9% Saline Lock 10 ML Syringe IV (13:22)
--- NOTE | 2017-09-03 14:13 | PCM.DC ---
- Discharge Diagnoses Current Active Problems: Current Active and Chronic Problems Unstable angina (Acute) Breakthrough seizure (Acute) You will use the following diet at home:: Calorie/Carbohydrate Controlled (specify 1200, 1400, etc) - 2100 calorie low fat and low salt diet. Your food should be the consistency of: Regular Your liquids should be the consistency of: Regular/Thin Discharge Activity: Return to Normal Activity Call your doctor if you observe: Fever of 101 or Higher, Shortness of breath, Dizziness, Fainting spells, Chest pain, Increased palpitations (irregular heartbeat) Additional Instructions: I have changed the dosing times of a few medications around so that you are not taking so many pills in the morning. I did NOT increase the Keppra dose because Keppra makes you sleepy and you are already tired. I am not even sure you have a seizurse disorder because all the testing has been negative. The Metoprolol can also make you tired but, you have heart disease and metoprolol is an important drug for your heart. I would discuss with your beater lead whether the dose can be decreased to see if you are less fatigued. I also think you need a need a new sleep study. You may need the pressure increased on your CPAP. Lexapr also makes some people tired so you can try taking it at bedtime rather than in the AM. I checked with the social work professor and Medicare Part A only covers you if you are in the hospital so unfortunately you would need to pay out of pocket to see Dr. Holt or to have a sleep study. Pending Tests on Discharge: none Allergies/Adverse Reactions: Allergies ezetimibe Allergy (Verified 09/01/17 16:51) Unknown Fish Containing Products Allergy (Verified 09/01/17 16:51) Unknown glyburide Allergy (Verified 09/01/17 16:51) Unknown lisinopril Allergy (Verified 09/01/17 16:51) Unknown metoprolol Allergy (Verified 09/01/17 16:51) Unknown simvastatin Allergy (Verified 09/01/17 16:51) Unknown Medications to take at Discharge Atenolol [Tenormin (beta theron)] 100 mg PO DAILY 08/09/16 Atorvastatin Calcium [Lipitor] 80 mg PO QHS 08/09/16 Finasteride [Proscar] 5 mg PO DAILY 08/09/16 Furosemide [Lasix] 20 mg PO DAILY 08/09/16 Multivitamin with Minerals/Lut [Pub Multivitamin 50 Plus Tab] 1 tab PO DAILY 08/09/16 Pantoprazole Sodium [Protonix] 40 mg PO BID 08/09/16 Tamsulosin HCl [Flomax] 0.8 mg PO QHS 08/09/16 Clopidogrel Bisulfate [Clopidogrel] 75 mg PO DAILY 12/25/16 Alprostadil [Caverject] 20 mcg IC X1 PRN 02/22/17 Dextrose [Glucose] 4 gm PO X1 PRN 02/22/17 Ketoconazole 1 applicatio TOPICAL DAILY 02/22/17 levETIRAcetam tablet [Keppra tablet] 500 mg PO BID 07/06/17 Acetaminophen [Tylenol Tablet] 325 mg PO Q6H PRN PRN 09/01/17 Aspirin E.C. [Ecotrin] 81 mg PO DAILY@0800 09/01/17 Cholecalciferol (VIT D3) [Vitamin D3] 3,000 unit PO DAILY 09/01/17 Escitalopram Oxalate [Lexapro] 10 mg PO DAILY 09/01/17 Insulin Regular, Human [Humulin R U-500 Kwikpen] See Protocol SQ TIDCM 09/01/17 Ranolazine [Ranexa] 1,000 mg PO BID 09/01/17 Primary Care Physician: [facility] [Primary Care Provider] - Please follow up with your Primary Care Physician in: in the next few weeks Test Results: Test results from this visit will be discussed in further detail at your follow-up appointment, if applicable. Proposed Discharge Date: 09/03/17
--- NOTE | 2017-09-03 14:23 | DCINST_ITS ---
- Discharge Diagnoses Current Active Problems: Current Active and Chronic Problems Unstable angina (Acute) Breakthrough seizure (Acute) You will use the following diet at home:: Calorie/Carbohydrate Controlled ( specify 1200, 1400, etc) - 2100 calorie low fat and low salt diet. Your food should be the consistency of: Regular Your liquids should be the consistency of: Regular/Thin Discharge Activity: Return to Normal Activity Call your doctor if you observe: Fever of 101 or Higher, Shortness of breath, Dizziness, Fainting spells, Chest pain, Increased palpitations (irregular heartbeat) Additional Instructions: I have changed the dosing times of a few medications around so that you are not taking so many pills in the morning. I did NOT increase the Keppra dose because Keppra makes you sleepy and you are already tired. I am not even sure you have a seizurse disorder because all the testing has been negative. The Metoprolol can also make you tired but, you have heart disease and metoprolol is an important drug for your heart. I would discuss with your park interpretive ranger whether the dose can be decreased to see if you are less fatigued. I also think you need a need a new sleep study. You may need the pressure increased on your CPAP. Lexapr also makes some people tired so you can try taking it at bedtime rather than in the AM. I checked with the social services coordinator and Medicare Part A only covers you if you are in the hospital so unfortunately you would need to pay out of pocket to see Dr. Holt or to have a sleep study. Pending Tests on Discharge: none Allergies/Adverse Reactions: Allergies ezetimibe Allergy (Verified 09/01/17 16:51) Unknown Fish Containing Products Allergy (Verified 09/01/17 16:51) Unknown glyburide Allergy (Verified 09/01/17 16:51) Unknown lisinopril Allergy (Verified 09/01/17 16:51) Unknown metoprolol Allergy (Verified 09/01/17 16:51) Unknown simvastatin Allergy (Verified 09/01/17 16:51) Unknown Medications to take at Discharge Atenolol [Tenormin (beta theron)] 100 mg PO DAILY 08/09/16 Atorvastatin Calcium [Lipitor] 80 mg PO QHS 08/09/16 Finasteride [Proscar] 5 mg PO DAILY 08/09/16 Furosemide [Lasix] 20 mg PO DAILY 08/09/16 Multivitamin with Minerals/Lut [Pub Multivitamin 50 Plus Tab] 1 tab PO DAILY Pantoprazole Sodium [Protonix] 40 mg PO BID 08/09/16 Tamsulosin HCl [Flomax] 0.8 mg PO QHS 08/09/16 Clopidogrel Bisulfate [Clopidogrel] 75 mg PO DAILY 12/25/16 Alprostadil [Caverject] 20 mcg IC X1 PRN 02/22/17 Dextrose [Glucose] 4 gm PO X1 PRN 02/22/17 Ketoconazole 1 applicatio TOPICAL DAILY 02/22/17 levETIRAcetam tablet [Keppra tablet] 500 mg PO BID 07/06/17 Acetaminophen [Tylenol Tablet] 325 mg PO Q6H PRN PRN 09/01/17 Aspirin E.C. [Ecotrin] 81 mg PO DAILY@0800 09/01/17 Cholecalciferol (VIT D3) [Vitamin D3] 3,000 unit PO DAILY 09/01/17 Escitalopram Oxalate [Lexapro] 10 mg PO DAILY 09/01/17 Insulin Regular, Human [Humulin R U-500 Kwikpen] See Protocol SQ TIDCM 09/01/17 Ranolazine [Ranexa] 1,000 mg PO BID 09/01/17 Primary Care Physician: [facility],[place] [Primary Care Provider] - Please follow up with your Primary Care Physician in: in the next few weeks Test Results: Test results from this visit will be discussed in further detail at your follow- up appointment, if applicable. Proposed Discharge Date: 09/03/17
--- NOTE | 2017-09-03 14:27 | PCM.DC.SUM ---
Discharge Date and Diagnosis - Problem List Patient Problems: Active and Suspected Problems Breakthrough seizure (Suspected) Date of Admission: 09/01/17 Date of Discharge: 09/03/17 - Primary Discharge Diagnosis Active and Suspected Problems Breakthrough seizure (Suspected) Unstable angina - ruled out - Secondary Discharge Diagnosis Chronic Problems Hyperlipidemia (Chronic) Hypertension (Chronic) Obesity (Chronic) Pacemaker (Chronic) 2001 Weakness of limb (Chronic) Left-sided weakness, chronic Chronic respiratory failure (Chronic) baseline 3L continuously CAD (coronary artery disease) (Chronic) Cardiac catheterization 02/24/2017normal LV size should not, EF 55%, [place] multivessel CAD, patent SVG to diagonal 1, OM 2, and RCA, MASON to LAD previously reported as atretic/nonfunctional (not reevaluated at that time), advised medical therapy DM type 2 (diabetes mellitus, type 2) (Chronic) History of smoking (Chronic) Obstructive sleep apnea (Chronic) Seizure disorder (Chronic) left sided tingling left body (Chronic) S/P CABG (coronary artery bypass graft) (Chronic) S/P PTCA (percutaneous transluminal coronary angioplasty) (Chronic) CVA (cerebral vascular accident) (Chronic) Residual left-sided weakness Hospital Course and Treatment Imaging Results: Clinical Impression(s) from Imaging Studies Chest X-Ray 09/01/17 17:45 IMPRESSION: Mild bilateral perihilar interstitial thickening greater on the left. No evidence for focal infiltrate or gross pulmonary edema Electronically Signed: Zeb Segura MD at 18:29 EDT , Service support , Brain CT 09/02/17 05:38 IMPRESSION: Chronic involutional changes of the brain. No demonstrated acute intracranial process. Electronically Signed: Andrea Rocha MD at 6:42 EDT , Service support , Laboratory Tests 09/01/17 09/01/17 09/01/17 17:20 17:20 21:32 WBC 5.1 RBC 3.91 L Hgb 13.0 Hct 38.0 L MCV 97.2 H MCH 33.2 H MCHC 34.2 RDW 13.7 RDW Differential 46.4 H Plt Count 136 L MPV 10.6 Immature Gran % (Auto) 0.000 Neut % (Auto) 71.0 H Lymph % (Auto) 20.2 Slope % (Auto) 6.8 Eos % (Auto) 1.8 Baso % (Auto) 0.2 Absolute Neuts (auto) 3.7 Absolute Lymphs (auto) 1.04 Total Counted Not Reportable PT INR APTT Sodium 143 Potassium 3.7 Chloride 103 Carbon Dioxide 33.0 H Anion Gap 7 BUN 22 H Creatinine 1.00 Estim Creat Clear Calc 74.01 Est GFR (MDRD) Af Amer 96 Est GFR (MDRD) Non-Af 79 BUN/Creatinine Ratio 22.0 H Glucose 211 H Calcium 7.9 L AST Troponin I < 0.015 < 0.015 Albumin Triglycerides Cholesterol LDL Cholesterol VLDL Cholesterol HDL Cholesterol POC Glucose 09/01/17 09/02/17 09/02/17 21:36 00:06 05:00 WBC 4.8 RBC 3.88 L Hgb 12.7 L Hct 37.6 L MCV 96.9 H MCH 32.7 H MCHC 33.8 RDW 13.8 RDW Differential 46.6 H Plt Count 116 L MPV 10.2 Immature Gran % (Auto) Neut % (Auto) Lymph % (Auto) Slope % (Auto) Eos % (Auto) Baso % (Auto) Absolute Neuts (auto) Absolute Lymphs (auto) Total Counted PT INR APTT Sodium Potassium Chloride Carbon Dioxide Anion Gap BUN Creatinine Estim Creat Clear Calc Est GFR (MDRD) Af Amer Est GFR (MDRD) Non-Af BUN/Creatinine Ratio Glucose Calcium AST Troponin I < 0.015 Albumin Triglycerides Cholesterol LDL Cholesterol VLDL Cholesterol HDL Cholesterol POC Glucose 198 H 09/02/17 09/02/17 09/02/17 05:00 05:00 05:00 WBC RBC Hgb Hct MCV MCH MCHC RDW RDW Differential Plt Count MPV Immature Gran % (Auto) Neut % (Auto) Lymph % (Auto) Slope % (Auto) Eos % (Auto) Baso % (Auto) Absolute Neuts (auto) Absolute Lymphs (auto) Total Counted PT 14.7 INR 1.2 APTT 38.0 H Sodium 142 Potassium 3.9 Chloride 102 Carbon Dioxide 34.0 H Anion Gap 6 BUN 22 H Creatinine 0.85 Estim Creat Clear Calc 87.08 Est GFR (MDRD) Af Amer 115 Est GFR (MDRD) Non-Af 95 BUN/Creatinine Ratio 25.9 H Glucose 213 H Calcium 7.7 L AST Troponin I < 0.015 Albumin 3.4 Triglycerides 178 Cholesterol 88 LDL Cholesterol 14 VLDL Cholesterol 36 HDL Cholesterol 38 L POC Glucose 09/02/17 09/02/17 09/02/17 05:00 05:27 11:42 WBC RBC Hgb Hct MCV MCH MCHC RDW RDW Differential Plt Count MPV Immature Gran % (Auto) Neut % (Auto) Lymph % (Auto) Slope % (Auto) Eos % (Auto) Baso % (Auto) Absolute Neuts (auto) Absolute Lymphs (auto) Total Counted PT INR APTT Sodium Potassium Chloride Carbon Dioxide Anion Gap BUN Creatinine Estim Creat Clear Calc Est GFR (MDRD) Af Amer Est GFR (MDRD) Non-Af BUN/Creatinine Ratio Glucose Calcium AST 24 Troponin I Albumin Triglycerides Cholesterol LDL Cholesterol VLDL Cholesterol HDL Cholesterol POC Glucose 203 H 230 H 09/02/17 09/02/17 09/03/17 17:33 22:40 07:06 WBC RBC Hgb Hct MCV MCH MCHC RDW RDW Differential Plt Count MPV Immature Gran % (Auto) Neut % (Auto) Lymph % (Auto) Slope % (Auto) Eos % (Auto) Baso % (Auto) Absolute Neuts (auto) Absolute Lymphs (auto) Total Counted PT INR APTT Sodium Potassium Chloride Carbon Dioxide Anion Gap BUN Creatinine Estim Creat Clear Calc Est GFR (MDRD) Af Amer Est GFR (MDRD) Non-Af BUN/Creatinine Ratio Glucose Calcium AST Troponin I Albumin Triglycerides Cholesterol LDL Cholesterol VLDL Cholesterol HDL Cholesterol POC Glucose 241 H 100 123 H 09/03/17 12:46 WBC RBC Hgb Hct MCV MCH MCHC RDW RDW Differential Plt Count MPV Immature Gran % (Auto) Neut % (Auto) Lymph % (Auto) Slope % (Auto) Eos % (Auto) Baso % (Auto) Absolute Neuts (auto) Absolute Lymphs (auto) Total Counted PT INR APTT Sodium Potassium Chloride Carbon Dioxide Anion Gap BUN Creatinine Estim Creat Clear Calc Est GFR (MDRD) Af Amer Est GFR (MDRD) Non-Af BUN/Creatinine Ratio Glucose Calcium AST Troponin I Albumin Triglycerides Cholesterol LDL Cholesterol VLDL Cholesterol HDL Cholesterol POC Glucose [address] 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 EKG in the emergency room showed a paced rhythm. Troponin was less than 0.015. He was admitted to a monitored bed on PCU and serial cardiac enzymes were obtained which were negative. A cardiac catheterization in February 2017 and at that time the vein graft to diagonal 1 was patent, vein graft to OM 2 was patent and the vein graft to the RCA was patent. The MASON to the LAD was previously noted to be atraumatic and was not reevaluated. The ejection fraction was 55%. While in the hospital on the AM of 09/02 he became unresponsive but VS were stable and he was presumed to have had a seizure. He was given 2 mg of IV Ativan and was somnolent most of the day until he was given Romazicon. A CT brain was obtained that showed no acute findings. Consult was obtained with neurology and a EEG was done that showed no epileptiform activity. He did admit to the neurologist that he had missed some doses of Keppra but, he told me this does not happen often. He has never had an EEG that was + for seizure activity however, the episodes of CP associated with unresponsiveness seemed to significantly decrease after he was started on Keppra. He had primarily paced rhythm while in the hospital with an occasional PVC and no significant dysrhythmia. On the day of DC he was alert and appropriate and denied CP. His only complaint is that he feels tired all the time. He is on a few medications that can cause fatigue and these include Keppra, Metoprolol and Lexapro. I told him to take the Lexapro at bedtime to see if that helps. His last sleep study was 6 years ago and he states he is faithful with CPAP. He may need a new sleep study to see if the pressure is adequate to keep the airway open. I also suggested that he discuss with his oceanologist lowering the dose of the Metoprolol. He would like to follow up with Dr. Holt from neurology but unfortunately his insurance only covers inpatient unless he goes to the [place]. he was discharged on 09/03/2017 and instructed to follow-up at the [place] in the next few weeks. General: Alert, Oriented x3, Cooperative HEENT: Atraumatic, PERRLA, EOMI, Normocephalic Neck: Supple, No JVD, Negative Carotid Bruits, short and thick Lungs: Clear to auscultation, diminished Cardiovascular: Regular rate, No murmurs, no gallop Abdomen: Bowel Sounds Present, Soft, Non Tender, obese Extremities: No edema, Capillary Refill Less than 3 Seconds Skin: No rashes, No breakdown Musculoskeletal: No Tenderness to Palpation of Joints or Extremities Neurological: Cranial nerves II-XII grossly intact Discharge Activity: Return to Normal Activity Call your doctor if you observe: Fever of 101 or Higher, Shortness of breath, Dizziness, Fainting spells, Chest pain, Increased palpitations (irregular heartbeat) Home Medications: Medications to take at Discharge Atenolol [Tenormin (beta theron)] 100 mg PO DAILY 08/09/16 Atorvastatin Calcium [Lipitor] 80 mg PO QHS 08/09/16 Finasteride [Proscar] 5 mg PO DAILY 08/09/16 Furosemide [Lasix] 20 mg PO DAILY 08/09/16 Multivitamin with Minerals/Lut [Pub Multivitamin 50 Plus Tab] 1 tab PO DAILY 08/09/16 Pantoprazole Sodium [Protonix] 40 mg PO BID 08/09/16 Tamsulosin HCl [Flomax] 0.8 mg PO QHS 08/09/16 Clopidogrel Bisulfate [Clopidogrel] 75 mg PO DAILY 12/25/16 Alprostadil [Caverject] 20 mcg IC X1 PRN 02/22/17 Dextrose [Glucose] 4 gm PO X1 PRN 02/22/17 Ketoconazole 1 applicatio TOPICAL DAILY 02/22/17 levETIRAcetam tablet [Keppra tablet] 500 mg PO BID 07/06/17 Acetaminophen [Tylenol Tablet] 325 mg PO Q6H PRN PRN 09/01/17 Aspirin E.C. [Ecotrin] 81 mg PO DAILY@0800 09/01/17 Cholecalciferol (VIT D3) [Vitamin D3] 3,000 unit PO DAILY 09/01/17 Escitalopram Oxalate [Lexapro] 10 mg PO DAILY 09/01/17 Insulin Regular, Human [Humulin R U-500 Kwikpen] See Protocol SQ TIDCM 09/01/17 Ranolazine [Ranexa] 1,000 mg PO BID 09/01/17 Primary Care Physician: [facility],[place] [Primary Care Provider] - Please follow up with your Primary Care Physician in: in the next few weeks Disposition: Home Minutes spent on discharge:: 35 Patient Condition:: Stable Medical Necessity - Tobacco Use Smoking Status: Former smoker Tobacco Use: Non-smoker Meaningful Use Info Meaningful Use Diagnoses (Choose all that apply): None applicable Code Visit Inpatient E&M: 41516 Disch Hosp
--- NOTE | 2017-09-03 14:44 | DS.PCM_ITS ---
Discharge Date and Diagnosis - Problem List Patient Problems: Active and Suspected Problems Breakthrough seizure (Suspected) Date of Admission: 09/01/17 Date of Discharge: 09/03/17 - Primary Discharge Diagnosis Active and Suspected Problems Breakthrough seizure (Suspected) Unstable angina - ruled out - Secondary Discharge Diagnosis Chronic Problems Hyperlipidemia (Chronic) Hypertension (Chronic) Obesity (Chronic) Pacemaker (Chronic) 2001 Weakness of limb (Chronic) Left-sided weakness, chronic Chronic respiratory failure (Chronic) baseline 3L continuously CAD (coronary artery disease) (Chronic) Cardiac catheterization 02/24/2017?normal LV size should not, EF 55%, [place] multivessel CAD, patent SVG to diagonal 1, OM 2, and RCA, MASON to LAD previously reported as atretic/nonfunctional (not reevaluated at that time), advised medical therapy DM type 2 (diabetes mellitus, type 2) (Chronic) History of smoking (Chronic) Obstructive sleep apnea (Chronic) Seizure disorder (Chronic) left sided tingling left body (Chronic) S/P CABG (coronary artery bypass graft) (Chronic) S/P PTCA (percutaneous transluminal coronary angioplasty) (Chronic) CVA (cerebral vascular accident) (Chronic) Residual left-sided weakness Hospital Course and Treatment Imaging Results: Clinical Impression(s) from Imaging Studies Chest X-Ray 09/01/17 17:45 IMPRESSION: Mild bilateral perihilar interstitial thickening greater on the left. No evidence for focal infiltrate or gross pulmonary edema Electronically Signed: Zeb Segura MD at 18:29 EDT , Service support , Brain CT 09/02/17 05:38 IMPRESSION: Chronic involutional changes of the brain. No demonstrated acute intracranial process. Electronically Signed: Andrea Rocha MD at 6:42 EDT , Service support , Laboratory Tests 09/01/17 09/01/17 09/01/17 17:20 17:20 21:32 WBC 5.1 RBC 3.91 L Hgb 13.0 Hct 38.0 L MCV 97.2 H MCH 33.2 H MCHC 34.2 RDW 13.7 RDW Differential 46.4 H Plt Count 136 L MPV 10.6 Immature Gran % (Auto) 0.000 Neut % (Auto) 71.0 H Lymph % (Auto) 20.2 [place] % (Auto) 6.8 Eos % (Auto) 1.8 Baso % (Auto) 0.2 Absolute Neuts (auto) 3.7 Absolute Lymphs (auto) 1.04 Total Counted Not Reportable PT INR APTT Sodium 143 Potassium 3.7 Chloride 103 Carbon Dioxide 33.0 H Anion Gap 7 BUN 22 H Creatinine 1.00 Estim Creat Clear Calc 74.01 Est GFR (MDRD) Af Amer 96 Est GFR (MDRD) Non-Af 79 BUN/Creatinine Ratio 22.0 H Glucose 211 H Calcium 7.9 L AST Troponin I < 0.015 < 0.015 Albumin Triglycerides Cholesterol LDL Cholesterol VLDL Cholesterol HDL Cholesterol POC Glucose 09/01/17 09/02/17 09/02/17 21:36 00:06 05:00 WBC 4.8 RBC 3.88 L Hgb 12.7 L Hct 37.6 L MCV 96.9 H MCH 32.7 H MCHC 33.8 RDW 13.8 RDW Differential 46.6 H Plt Count 116 L MPV 10.2 Immature Gran % (Auto) Neut % (Auto) Lymph % (Auto) [place] % (Auto) Eos % (Auto) Baso % (Auto) Absolute Neuts (auto) Absolute Lymphs (auto) Total Counted PT INR APTT Sodium Potassium Chloride Carbon Dioxide Anion Gap BUN Creatinine Estim Creat Clear Calc Est GFR (MDRD) Af Amer Est GFR (MDRD) Non-Af BUN/Creatinine Ratio Glucose Calcium AST Troponin I < 0.015 Albumin Triglycerides Cholesterol LDL Cholesterol VLDL Cholesterol HDL Cholesterol POC Glucose 198 H 09/02/17 09/02/17 09/02/17 05:00 05:00 05:00 WBC RBC Hgb Hct MCV MCH MCHC RDW RDW Differential Plt Count MPV Immature Gran % (Auto) Neut % (Auto) Lymph % (Auto) [place] % (Auto) Eos % (Auto) Baso % (Auto) Absolute Neuts (auto) Absolute Lymphs (auto) Total Counted PT 14.7 INR 1.2 APTT 38.0 H Sodium 142 Potassium 3.9 Chloride 102 Carbon Dioxide 34.0 H Anion Gap 6 BUN 22 H Creatinine 0.85 Estim Creat Clear Calc 87.08 Est GFR (MDRD) Af Amer 115 Est GFR (MDRD) Non-Af 95 BUN/Creatinine Ratio 25.9 H Glucose 213 H Calcium 7.7 L AST Troponin I < 0.015 Albumin 3.4 Triglycerides 178 Cholesterol 88 LDL Cholesterol 14 VLDL Cholesterol 36 HDL Cholesterol 38 L POC Glucose 09/02/17 09/02/17 09/02/17 05:00 05:27 11:42 WBC RBC Hgb Hct MCV MCH MCHC RDW RDW Differential Plt Count MPV Immature Gran % (Auto) Neut % (Auto) Lymph % (Auto) [place] % (Auto) Eos % (Auto) Baso % (Auto) Absolute Neuts (auto) Absolute Lymphs (auto) Total Counted PT INR APTT Sodium Potassium Chloride Carbon Dioxide Anion Gap BUN Creatinine Estim Creat Clear Calc Est GFR (MDRD) Af Amer Est GFR (MDRD) Non-Af BUN/Creatinine Ratio Glucose Calcium AST 24 Troponin I Albumin Triglycerides Cholesterol LDL Cholesterol VLDL Cholesterol HDL Cholesterol POC Glucose 203 H 230 H 09/02/17 09/02/17 09/03/17 17:33 22:40 07:06 WBC RBC Hgb Hct MCV MCH MCHC RDW RDW Differential Plt Count MPV Immature Gran % (Auto) Neut % (Auto) Lymph % (Auto) [place] % (Auto) Eos % (Auto) Baso % (Auto) Absolute Neuts (auto) Absolute Lymphs (auto) Total Counted PT INR APTT Sodium Potassium Chloride Carbon Dioxide Anion Gap BUN Creatinine Estim Creat Clear Calc Est GFR (MDRD) Af Amer Est GFR (MDRD) Non-Af BUN/Creatinine Ratio Glucose Calcium AST Troponin I Albumin Triglycerides Cholesterol LDL Cholesterol VLDL Cholesterol HDL Cholesterol POC Glucose 241 H 100 123 H 09/03/17 12:46 WBC RBC Hgb Hct MCV MCH MCHC RDW RDW Differential Plt Count MPV Immature Gran % (Auto) Neut % (Auto) Lymph % (Auto) [place]le % (Auto) Eos % (Auto) Baso % (Auto) Absolute Neuts (auto) Absolute Lymphs (auto) Total Counted PT INR APTT Sodium Potassium Chloride Carbon Dioxide Anion Gap BUN Creatinine Estim Creat Clear Calc Est GFR (MDRD) Af Amer Est GFR (MDRD) Non-Af BUN/Creatinine Ratio Glucose Calcium AST Troponin I Albumin Triglycerides Cholesterol LDL Cholesterol VLDL Cholesterol HDL Cholesterol POC Glucose [address] 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 EKG in the emergency room showed a paced rhythm. Troponin was less than 0.015. He was admitted to a monitored bed on PCU and serial cardiac enzymes were obtained which were negative. A cardiac catheterization in February 2017 and at that time the vein graft to diagonal 1 was patent, vein graft to OM 2 was patent and the vein graft to the RCA was patent. The MASON to the LAD was previously noted to be atraumatic and was not reevaluated. The ejection fraction was 55%. While in the hospital on the AM of 09/02 he became unresponsive but VS were stable and he was presumed to have had a seizure. He was given 2 mg of IV Ativan and was somnolent most of the day until he was given Romazicon. A CT brain was obtained that showed no acute findings. Consult was obtained with neurology and a EEG was done that showed no epileptiform activity. He did admit to the neurologist that he had missed some doses of Keppra but, he told me this does not happen often. He has never had an EEG that was + for seizure activity however, the episodes of CP associated with unresponsiveness seemed to significantly decrease after he was started on Keppra. He had primarily paced rhythm while in the hospital with an occasional PVC and no significant dysrhythmia. On the day of DC he was alert and appropriate and denied CP. His only complaint is that he feels tired all the time. He is on a few medications that can cause fatigue and these include Keppra, Metoprolol and Lexapro. I told him to take the Lexapro at bedtime to see if that helps. His last sleep study was 6 years ago and he states he is faithful with CPAP. He may need a new sleep study to see if the pressure is adequate to keep the airway open. I also suggested that he discuss with his body stylist lowering the dose of the Metoprolol. He would like to follow up with Dr. Holt from neurology but unfortunately his insurance only covers inpatient unless he goes to the [place]. he was discharged on 09/03/2017 and instructed to follow-up at the [place] in the next few weeks. General: Alert, Oriented x3, Cooperative HEENT: Atraumatic, PERRLA, EOMI, Normocephalic Neck: Supple, No JVD, Negative Carotid Bruits, short and thick Lungs: Clear to auscultation, diminished Cardiovascular: Regular rate, No murmurs, no gallop Abdomen: Bowel Sounds Present, Soft, Non Tender, obese Extremities: No edema, Capillary Refill Less than 3 Seconds Skin: No rashes, No breakdown Musculoskeletal: No Tenderness to Palpation of Joints or Extremities Neurological: Cranial nerves II-XII grossly intact Discharge Activity: Return to Normal Activity Call your doctor if you observe: Fever of 101 or Higher, Shortness of breath, Dizziness, Fainting spells, Chest pain, Increased palpitations (irregular heartbeat) Home Medications: Medications to take at Discharge Atenolol [Tenormin (beta theron)] 100 mg PO DAILY 08/09/16 Atorvastatin Calcium [Lipitor] 80 mg PO QHS 08/09/16 Finasteride [Proscar] 5 mg PO DAILY 08/09/16 Furosemide [Lasix] 20 mg PO DAILY 08/09/16 Multivitamin with Minerals/Lut [Pub Multivitamin 50 Plus Tab] 1 tab PO DAILY Pantoprazole Sodium [Protonix] 40 mg PO BID 08/09/16 Tamsulosin HCl [Flomax] 0.8 mg PO QHS 08/09/16 Clopidogrel Bisulfate [Clopidogrel] 75 mg PO DAILY 12/25/16 Alprostadil [Caverject] 20 mcg IC X1 PRN 02/22/17 Dextrose [Glucose] 4 gm PO X1 PRN 02/22/17 Ketoconazole 1 applicatio TOPICAL DAILY 02/22/17 levETIRAcetam tablet [Keppra tablet] 500 mg PO BID 07/06/17 Acetaminophen [Tylenol Tablet] 325 mg PO Q6H PRN PRN 09/01/17 Aspirin E.C. [Ecotrin] 81 mg PO DAILY@0800 09/01/17 Cholecalciferol (VIT D3) [Vitamin D3] 3,000 unit PO DAILY 09/01/17 Escitalopram Oxalate [Lexapro] 10 mg PO DAILY 09/01/17 Insulin Regular, Human [Humulin R U-500 Kwikpen] See Protocol SQ TIDCM 09/01/17 Ranolazine [Ranexa] 1,000 mg PO BID 09/01/17 Primary Care Physician: [facility],[place] [Primary Care Provider] - Please follow up with your Primary Care Physician in: in the next few weeks Disposition: Home Minutes spent on discharge:: 35 Patient Condition:: Stable Medical Necessity - Tobacco Use Smoking Status: Former smoker Tobacco Use: Non-smoker Meaningful Use Info Meaningful Use Diagnoses (Choose all that apply): None applicable Code Visit Inpatient E&M: 59998 Disch Hosp
--- NOTE | 2017-09-04 15:29 | CASEMGMT ---
KRISTI GERONIMO Discharge F/U Phone Call LACE: 13 Strata: 4 Discharge date: 09/03/17 Call date: 09/04/17 Call time: 1530 Duration: 1 minute Admission dx: Unstable Angina Pt's answered phone and prefers to answer for pt at this time. Per , pt has been 'doing good' since discharge. states no questions regarding discharge instructions or medications at this time. Per , pt plans on keeping and going to f/u appt's. states no suggestions for [facility] at this time. states no further questions/concerns/needs at this time. [place] KRISTI GERONIMO
== END 2017-09-03 15:31 | disposition home or self-care (01) | DRG 101 ==
LOC: ED 17:33 → PCU 19:12
PROVIDERS: Hospitalist; Emergency Provider Emergency Medicine; Visit Provider Internal Medicine
DX: G40.909 Epilepsy, unspecified, not intractable, without status epilepticus (principal); I69.354 Hemiplegia and hemiparesis following cerebral infarction affecting left non-dominant side; J96.11 Chronic respiratory failure with hypoxia; E11.9 Type 2 diabetes mellitus without complications; Z99.81 Dependence on supplemental oxygen; E78.5 Hyperlipidemia, unspecified; G47.33 Obstructive sleep apnea (adult) (pediatric); Z87.891 Personal history of nicotine dependence; Z79.4 Long term (current) use of insulin; I25.10 Atherosclerotic heart disease of native coronary artery without angina pectoris; Z95.0 Presence of cardiac pacemaker; Z95.1 Presence of aortocoronary bypass graft; E66.9 Obesity, unspecified; Z68.36 Body mass index [BMI] 36.0-36.9, adult; I11.0 Hypertensive heart disease with heart failure; I50.9 Heart failure, unspecified
CPT/HCPCS: 36415; 70450; 71045; 80048; 80061; 82040; 82962; 84450; 84484; 85025; 85027; 85610; 85730; 93005; 97802; 99283; A4216

== ENCOUNTER 2017-09-17 10:01 | Emergency (ER) | payer OTHER, SELFPAY ==
[2017-09-17] VITALS (8 sets, daily range): BP systolic 137–172; BP diastolic 65–96; PULSE 60–75; RESP 16–20; TEMP 36.6; O2SAT 96–98; BMI 36.3
--- NOTE | 2017-09-17 10:15 | RAD_ITS ---
STUDY: X-RAY CHEST REASON FOR EXAM: Male, 67 years old. Sudden onset of chest pain this morning. TECHNIQUE: Single AP portable view of the chest. COMPARISON: September 01, 2017. FINDINGS: Patient is a left-sided intercardiac pacemaker. Patient had a sternotomy. Cardiac monitoring leads are present. The lungs are underexpanded with a mild prominence of bronchovascular markings. There is no demonstrated pleural abnormality. There is mild cardiac enlargement. Normal mediastinum and cata. There is prominence of the pulmonary hilar arteries with peripheral pulmonary vascular congestion. There is atherosclerotic calcification of the aortic arch with tortuosity. There is demineralization of the osseous structures. There is elevation of the left clavicle probably related to acromioclavicular joint separation. There are degenerative changes of both shoulders. There is no demonstrated abnormality of the visualized soft tissue structures of the upper abdomen. RAD/Chest 1 View (Portable) IMPRESSION: Cardiomegaly and mild pulmonary congestion. Electronically Signed: Yara Vasquez MD at 10:36 EDT , Service support ,
--- NOTE | 2017-09-17 10:16 | EKG12_ITS ---
Test Reason : CP Blood Pressure : / mmHG Vent. Rate : 061 BPM Atrial Rate : 061 BPM P-R Int : 252 ms QRS Dur : 118 ms QT Int : 466 ms P-R-T Axes : 000 -17 090 degrees QTc Int : 469 ms Atrial-paced rhythm with prolonged AV conduction Abnormal ECG Confirmed by YUNI GUALLPA, JOANNA ([id number]), production editor MODESTA FISHMAN ([id number] on 09/21/2017 1:58:53 PM Referred By: CHITRA Confirmed By:JOANNA MORRISSEY MD
--- NOTE | 2017-09-17 10:18 | ED.DCSUM_ITS ---
- ER Visit Summary Date of Service: 09/17/17 Chief Complaint: Chest pain History of Present Illness: The patient is a 67 M with history of prior coronary disease and bypass surgery. He has also had prior stroke with chronic left-sided weakness. Patient reportedly woke from sleep at 5 AM with chest pain. He took one nitro at home and was given 2 nitro with EMS. He denies change in his chest pain. He was given 4 baby aspirin as well. Patient was admitted here to the hospital September 01- with chest pain. Enzymes were negative. They do comment on a heart cath that was performed in February of this year. Medical therapy was advised. Physical Examination: Vital signs unremarkable. Patient sitting upright in bed. He will nod or shake his head to questions. He will not attempt to verbalize. Head neck examination grossly unremarkable. Heart is regular rate and rhythm. He has no reproducible chest wall tenderness. Lung sounds are clear. Abdomen is soft and nontender. Neuro exam reveals mild chronic left-sided weakness. Test Results: EKG is paced at 61 with no sign of acute ischemia. Portable chest x-ray shows cardiomegaly and mild pulmonary congestion. CT head shows chronic involutional changes. CTA of the chest is normal. CBC was normal white count. Hemoglobin is 12.9. Platelet count is 130,000 which is consistent with his prior. Chemistry studies are significant for glucose of 206. Troponin is less than 0.015. Emergency Department Course and Treatment: Patient was initially given dose of fentanyl followed by morphine and Zofran. He received aspirin and nitro was squad. Repeat troponin at 3 hours remains less than 0.015 and repeat EKG is unchanged. I did speak with Dr. Oakes, on-call for cardiology. He personally reviewed the [employer] images from February of this year. He agrees that there is nothing significant that we would do different as an inpatient. Patient will be discharged. I will try to him a few tabs of oxycodone to use at home for pain. This is been discussed with the patient and . Treatment Plan: [] Disposition: Discharge Impression: Recurrent chest pain This note was generated with [employer] dictation software. It may contain incorrect words, spelling, and punctuation that were not noted in review of the chart prior to signing ED Disposition - Plan for ED Patient: Chief Complaint: Chest Pain Referrals: [facility] [Primary Care Provider] -
[2017-09-17] MEDS: fentaNYL 100 MCG/2 ML Ampul 25 MCG IV (10:22)
[2017-09-17 10:26] LABS: Absolute Lymphocyte Count 0.99 X10^3/ul (0.83-4.51); Absolute Neutrophil Count 5.2 X10^3/uL (2.0-7.7); Basophil# 0.01 X10^3/uL; Basophil% 0.1 % (0-1); Eosinophils% 1.5 % (0-5); Hematocrit 38.5 % (40-54); Hemoglobin 12.9 g/dl (13.0-16.5); Lymphocyte # 0.99 X10^3/ul (4.0); Lymphocyte % 14.7 % (19-41); Mean Corp Hgb Conc 33.5 g/gl (32-36); Mean Corpuscular Hgb 32.7 pg (27.0-32.0); Mean Corpuscular Volume 97.5 fL (80-94); Mean Platelet Vol. 10.1 fl (6.2-12.0); Monocyte# 0.39 X10^3/uL; Monocyte% 5.8 % (0-10); Neutrophil # 5.24 X10^3/uL (2.7-7.7); Neutrophil % 77.8 % (47-70); POSITIVE COUNT NO; POSITIVE DIFFERENTIAL NO; POSITIVE MORPHOLOGY NO; Platelet Count 130 K/mm3 (150-450); RBC Distribution Width CV 14.1 % (11.6-14.6); RBC Distribution Width SD 50.8 fl (35.1-43.9); Red Blood Count 3.95 M/mm3 (4.6-6.2); White Blood Count 6.7 K/mm3 (4.4-11.0)
[2017-09-17 10:37] LABS: Anion Gap 3 (5-15); BUN 21 mg/dL (7-18); BUN/Creat Ratio 25.4 RATIO (10-20); Calcium,Total 8.1 mg/dL (8.5-10.1); Chloride 104 mmol/L (98-107); Creatinine, Serum 0.83 mg/dL (0.70-1.30); EST Glomerular Filtration Rate 99 mL/min (>60); Est Glom Filt Rate - Afr Amer 119 mL/min (>60); Estimated Creatinine Clearance 89.17 ml/min; Glucose 206 mg/dL (74-106); Sodium Level 139 mmol/L (136-145)
--- NOTE | 2017-09-17 10:53 | CT_ITS ---
STUDY: CTA CHEST REASON FOR EXAM: Male, 67 years old. Severe chest pain. RADIATION DOSAGE (If Supplied By Facility): CTDIvol = ( 20.05 ) mGy, DLP = ( 683.98 ) mGycm TECHNIQUE: The examination was performed with the intravenous administration of 100 ml of Isovue 370 contrast material. Post-processing of the angiographic images was performed, with multiplanar reformation and 3D reconstruction. Individualized dose optimization techniques were used for this CT. COMPARISON: Comparison is made with prior study dated August 21, 2016. FINDINGS: Normal enhancement of the main pulmonary artery and right and left pulmonary arteries. Normal enhancement of the bilateral peripheral pulmonary arteries. There is no demonstrated pulmonary embolism. Normal thoracic aorta and visualized great vessels. There is no demonstrated aortic dissection. Sternal cerclage wires and vascular clips are present from a prior sternotomy and coronary artery bypass graft procedure (CABG). There are calcifications of the coronary arteries. Left-sided pacemaker. There are visualized mediastinal lymph nodes, which are within normal size limits, and with normal morphology. Normal hilar regions. Normal visualized trachea and bronchi. The lungs are well expanded. Normal pulmonary parenchyma. Normal pleura. Normal chest wall structures. There are degenerative changes of thoracic spine. Increased thoracic kyphosis. Prior cholecystectomy. CT/CTA Chest W/WO Contrast IMPRESSION: Normal CTA chest examination, without a demonstrated pulmonary embolism or arterial dissection. Electronically Signed: Mick García MD at 12:49 EDT Tel [phone], Service support ,
--- NOTE | 2017-09-17 10:53 | CT_ITS ---
STUDY: CT BRAIN WITHOUT CONTRAST REASON FOR EXAM: Male, 67 years old. Weakness. RADIATION DOSAGE (If Supplied By Facility): CTDIvol = ( 44.99 ) mGy, DLP = ( 829.85 ) mGycm TECHNIQUE: Transaxial CT imaging of the brain was performed without administration of intravenous contrast material. Individualized dose optimization techniques were used for this CT. COMPARISON: Comparison is made with prior study dated September 02, 2017. FINDINGS: Normal soft tissue structures. Normal calvarium. There is mild cerebral atrophy with widening of the extra-axial spaces and ventricular dilatation. There are areas of decreased attenuation within the white matter tracts of the supratentorial brain, consistent with microvascular disease changes. Normal basal ganglia and thalami. Normal brainstem. Normal cerebellum. There is no intracranial hemorrhage. There are no findings of an acute ischemic infarction. Normal visualized paranasal sinuses. CT/Brain/Head without Contrast IMPRESSION: Chronic involutional changes of the brain. There has been no change as compared to prior study. Electronically Signed: Mick García MD at 12:35 EDT Tel [phone], Service support ,
--- NOTE | 2017-09-17 13:10 | EKG12_ITS ---
Test Reason : REPEAT Blood Pressure : / mmHG Vent. Rate : 060 BPM Atrial Rate : 060 BPM P-R Int : 278 ms QRS Dur : 118 ms QT Int : 496 ms P-R-T Axes : 076 -13 069 degrees QTc Int : 496 ms Atrial-paced rhythm with prolonged AV conduction Nonspecific ST and T wave abnormality Prolonged QT Abnormal ECG Confirmed by YUNI GUALLPA, JOANNA ([id number]), web editor MODESTA FISHMAN ([id number]) on 09/21/2017 1:59:22 PM Referred By: CHITRA Confirmed By:JOANNA MORRISSEY MD
[2017-09-17] MEDS: Ondansetron 4 MG/2 ML Vial IV (13:14)
[2017-09-17] MEDS: Morphine 4 MG/ML Syringe IV (13:14)
--- NOTE | 2017-09-17 15:34 | ED.DEP ---
ED Disposition - Plan for ED Patient: Disposition: Home or Assisted Living Chief Complaint: Chest Pain Instructions: ED Chest Pain NonCardiac Prescriptions: Oxycodone [Oxyir] 5 mg PO Q6H PRN PRN 3 Days #14 tablet PRN Reason: Pain [facility] [Primary Care Provider] - As soon as possible
== END 2017-09-17 16:19 | disposition home or self-care (01) ==
PROVIDERS: Emergency Provider Emergency Medicine
DX: R07.9 Chest pain, unspecified (principal); I25.10 Atherosclerotic heart disease of native coronary artery without angina pectoris; E11.9 Type 2 diabetes mellitus without complications; I10 Essential (primary) hypertension; E78.00 Pure hypercholesterolemia, unspecified; Z87.891 Personal history of nicotine dependence; Z95.1 Presence of aortocoronary bypass graft; I69.354 Hemiplegia and hemiparesis following cerebral infarction affecting left non-dominant side
CPT/HCPCS: 70450; 71045; 71275; 80048; 84484; 85025; 93005; 99285; Q9967; A4216; J2405

== ENCOUNTER 2017-09-24 12:49 | Emergency (ER) | payer OTHER, SELFPAY ==
[2017-09-24 12:50] VITALS: BP 166/86; PULSE 61; RESP 16; TEMP 37.2; O2SAT 98; BMI 35.9
--- NOTE | 2017-09-24 12:56 | RAD_ITS ---
STUDY: X-RAY CHEST REASON FOR EXAM: Male, 67 years old. Chest pain. TECHNIQUE: Single AP upright portable view. COMPARISON: 09/17/2017 portable chest. Correlation CTA chest 09/17/2017. FINDINGS: No change position left superior-lateral thoracic pacemaker battery with dual contiguous appearing intracardiac leads and sternal wires noted. EKG wires and oxygen tubing overlie chest. Trachea near midline due to mild rotation. There is no demonstrated pleural abnormality. No large gross pneumothorax suggested. Heart size appears upper limits normal for projection. Stable prominent mediastinum and moderately enlarged left hilum with normal appearing right hilum. Moderately enlarged left and mildly enlarged right pulmonary arteries. Stable appearing visualized aortic arch and descending thoracic aorta. Normal visualized thoracic spine. Normal visualized ribs, clavicles, and shoulders. There is no demonstrated abnormality of the visualized soft tissue structures of the upper abdomen. RAD/Chest 1 View (Portable) IMPRESSION: Mild cardiomegaly without overt cardiac failure. Cardiothoracic surgery and pacemaker insertion. Enlarged pulmonary vessels suggesting pulmonary arterial hypertension in the appropriate clinical setting. Clinical correlation recommended. Electronically Signed: Lance Baum, at 14:26 EDT Tel , Service support ,
--- NOTE | 2017-09-24 13:13 | ED.VISSUMM ---
- ER Visit Summary Date of Service: 09/24/17 Chief Complaint: [] Chest pain History of Present Illness: The patient is a 67 M [] has a history of CABG, pacemaker, round 2006, with chronic chest pain that at times goes on for days and reoccurs multiple times during the month, he reports he has been having chest pain to his left arm since yesterday he has a history of this process, the exact etiology is unclear he had a cardiac cath he and his report in February 2017 that showed no signs of occlusions he has no history of PE or DVT he does have history of stroke left him with some mild left-sided weakness. Despite using nitroglycerin taking narcotic pain medication she was prescribed the other day when he was the emergency department, he persisted in having chest pain, the believes he may have passed out twice but was able to get up immediately he did not injure himself Indicates no one knows why he continues to have ongoing intermittent chest pain that seems to come and go without any specific alleviating or exacerbating factor Physical Examination: [] Resting comforting the bed his phonation is altered due to his speech pattern his airways intact is a large gentleman his lungs are diminished his heart tones are distant the abdomen is obese but soft nontender is moving all 4 extremities he has some weakness left side that is chronic he is awake alert no delirium Test Results: [] Emergency Department Course and Treatment: [] The family and patient are concerned because he has ongoing chest pain despite taking all his outpatient medications following all his instructions the is concerned that he passed out at least once today but was able to get up right away as she cannot help him up he does not feel well enough to be discharged home EKG shows paced rhythm nothing acute Patient's chest x-ray shows prominence of the pulmonary vasculature is consistent with many things including pulmonary hypertension nothing acute the patient's labs are all generally unremarkable see those reports, valuation his pain is markedly improved I discussed with the patient's inpatient versus outpatient management he does not wish to be admitted at this time he is frustrated at the chronic nature of this pain that he has can have pain for many days in a row it comes back and forth despite the fact he is following all of his outpatient management plan, the asked me about [facility] I have explained her she needed to call them or have his [facility] physicians make a consultation to be pain management, at this time he again prefers outpatient management declines admission to [facility] with the [facility] and return for change in symptoms Treatment Plan: [] Disposition: [] Home stable Impression: [] Acute recurrent chest pain, history of CABG, history of cardiac pacemaker This note was generated with [employer] dictation software. It may contain incorrect words, spelling, and punctuation that were not noted in review of the chart prior to signing ED Disposition - Plan for ED Patient: Chief Complaint: Chest Pain [facility] [Primary Care Provider] -
[2017-09-24 13:17] LABS: Absolute Lymphocyte Count 1.28 X10^3/ul (0.83-4.51); Absolute Neutrophil Count 3.5 X10^3/uL (2.0-7.7); Basophil# 0.01 X10^3/uL; Basophil% 0.2 % (0-1); Eosinophil# 0.15 X10^3/uL; Eosinophils% 2.9 % (0-5); Hematocrit 41.1 % (40-54); Hemoglobin 13.3 g/dl (13.0-16.5); Lymphocyte # 1.28 X10^3/ul (4.0); Lymphocyte % 24.4 % (19-41); Mean Corp Hgb Conc 32.4 g/gl (32-36); Mean Corpuscular Hgb 32.2 pg (27.0-32.0); Mean Corpuscular Volume 99.5 fL (80-94); Mean Platelet Vol. 10.5 fl (6.2-12.0); Monocyte# 0.34 X10^3/uL; Monocyte% 6.5 % (0-10); Neutrophil # 3.46 X10^3/uL (2.7-7.7); Neutrophil % 65.8 % (47-70); Platelet Count 130 K/mm3 (150-450); RBC Distribution Width CV 14.2 % (11.6-14.6); RBC Distribution Width SD 50.8 fl (35.1-43.9); Red Blood Count 4.13 M/mm3 (4.6-6.2); White Blood Count 5.3 K/mm3 (4.4-11.0)
[2017-09-24 13:19] LABS: POSITIVE COUNT NO; POSITIVE DIFFERENTIAL NO; POSITIVE MORPHOLOGY NO
[2017-09-24] MEDS: Ondansetron 4 MG/2 ML Vial IV (13:22)
[2017-09-24] MEDS: Aspirin 81 MG TAB.CHEW 324 MG PO (13:22)
[2017-09-24] MEDS: Morphine 4 MG/ML Syringe IV (13:22)
[2017-09-24 13:24] VITALS: PULSE 60; RESP 19; O2SAT 98
[2017-09-24 13:32] LABS: Anion Gap 6 (5-15); BUN 21 mg/dL (7-18); BUN/Creat Ratio 20.4 RATIO (10-20); Calcium,Total 8.1 mg/dL (8.5-10.1); Chloride 104 mmol/L (98-107); Creatinine, Serum 1.03 mg/dL (0.70-1.30); EST Glomerular Filtration Rate 77 mL/min (>60); Est Glom Filt Rate - Afr Amer 93 mL/min (>60); Estimated Creatinine Clearance 71.86 ml/min; Glucose 269 mg/dL (74-106); Potassium 3.9 mmol/L (3.5-5.1); Sodium Level 142 mmol/L (136-145)
[2017-09-24 13:40] VITALS: BP 157/108
[2017-09-24 13:43] LABS: BNP,B-Type NATRIURETIC PEPTIDE 82.8 pg/mL (0-100)
--- NOTE | 2017-09-24 14:47 | ED.DEP ---
ED Disposition - Plan for ED Patient: Chief Complaint: Chest Pain Instructions: ED Chest Pain Atypical Unkn Cause [facility]errals[facility] [Primary Care Provider] -
[2017-09-24 15:01] VITALS: BP 153/77; PULSE 60; RESP 17; O2SAT 97
== END 2017-09-24 15:12 | disposition home or self-care (01) ==
LOC: ED 14:20
PROVIDERS: Emergency Provider Emergency Medicine
DX: R07.9 Chest pain, unspecified (principal); Z95.1 Presence of aortocoronary bypass graft; Z95.0 Presence of cardiac pacemaker; I69.354 Hemiplegia and hemiparesis following cerebral infarction affecting left non-dominant side; I10 Essential (primary) hypertension
CPT/HCPCS: 71045; 80048; 83880; 84484; 85025; 93005; 99285; A4216; J2405

== ENCOUNTER 2017-10-19 11:00 | Emergency (ER) | payer OTHER, SELFPAY ==
[2017-10-19 11:00] VITALS: BP 127/59; PULSE 60; RESP 18; TEMP 37.1; O2SAT 98; BMI 35.9
--- NOTE | 2017-10-19 11:21 | ED.VISSUMM ---
- ER Visit Summary Date of Service: 10/19/17 Chief Complaint: Chest pain shortness of breath History of Present Illness: The patient is a 67 M A, CAD, NV, cardiac stents and prior quadruple bypass 2006., Insulin-dependent diabetes and COPD on 3 L nasal cannula O2. Patient states he has had chest pain for weeks. At rest. He also states he passed out yesterday. His said his dentist multiple times before and never come up with specific cause. He does have a pacemaker was checked a week ago. He had a heart cath earlier this year which was unremarkable. With patent prior grasp. He does have a previously obstructed MASON graft that is not new. He denies any hemoptysis. He is taking both Plavix and aspirin. Physical Examination: Older male no acute distress. On oxygen vital signs are stable afebrile pulse is 90% on his typical 3 L. H EENT exam unremarkable. Neck nontender. Lungs coarse breath sounds but no rales, rhonchi or wheezing. Heart paced at 60. Abdomen soft and nontender. Normal bowel sounds no peritoneal signs. He is moving all 4 extremities. He does have weakness on his left upper and left lower extremity compared to the right and these are deficits from a prior stroke. Neurologically awake and alert with his old deficits on the left. Test Results: Patient will undergo cardiac workup. The seizure chronic anemia with a hemoglobin 12.5 hematocrit 38 and platelet count 108,000. Chronic. Electrolytes unremarkable. Creatinine 0.9. Gap of 8. Glucose of 281. Troponin normal. Chest x-ray shows a left-sided pacemaker. Prior sternotomy. Cardiomegaly but no acute process read both by myself the radiologist. EKG shows a paced rhythm at 60. Emergency Department Course and Treatment: She is doing well. He has had pain for days now. I do not think this is a cardiac event. He has had a recent car heart catheterization which was unremarkable earlier this year. I am comfortable with him being discharged to home. Treatment Plan: Follow-up as an outpatient with his primary care physician and caramel cutter hand. Disposition: Discharge Impression: Chest pain and dyspnea Syncope of uncertain etiology History of CAD, CABG, stents, NV and COPD History of prior stroke with left-sided weakness History of insulin-dependent diabetes Anticoagulated on Plavix and aspirin This note was generated with [employer]ation software. It may contain incorrect words, spelling, and punctuation that were not noted in review of the chart prior to signing ED Disposition - Plan for ED Patient: Chief Complaint: Chest Pain [facility] [Primary Care Provider] -
[2017-10-19 11:35] LABS: Absolute Lymphocyte Count 0.94 X10^3/ul (0.83-4.51); Absolute Neutrophil Count 2.9 X10^3/uL (2.0-7.7); Basophil# 0.01 X10^3/uL; Basophil% 0.2 % (0-1); Eosinophil# 0.13 X10^3/uL; Eosinophils% 3.1 % (0-5); Hematocrit 38.3 % (40-54); Hemoglobin 12.5 g/dl (13.0-16.5); Lymphocyte # 0.94 X10^3/ul (4.0); Lymphocyte % 22.5 % (19-41); Mean Corp Hgb Conc 32.6 g/gl (32-36); Mean Corpuscular Hgb 32.5 pg (27.0-32.0); Mean Corpuscular Volume 99.5 fL (80-94); Mean Platelet Vol. 9.9 fl (6.2-12.0); Monocyte# 0.23 X10^3/uL; Monocyte% 5.5 % (0-10); Neutrophil # 2.86 X10^3/uL (2.7-7.7); Neutrophil % 68.7 % (47-70); POSITIVE COUNT NO; POSITIVE DIFFERENTIAL NO; POSITIVE MORPHOLOGY NO; Platelet Count 108 K/mm3 (150-450); RBC Distribution Width CV 14.3 % (11.6-14.6); RBC Distribution Width SD 51.9 fl (35.1-43.9); Red Blood Count 3.85 M/mm3 (4.6-6.2); White Blood Count 4.2 K/mm3 (4.4-11.0)
[2017-10-19] MEDS: Aspirin 81 MG TAB.CHEW 324 MG PO (11:37)
[2017-10-19 11:52] LABS: Anion Gap 8 (5-15); BUN 21 mg/dL (7-18); BUN/Creat Ratio 22.9 RATIO (10-20); Chloride 103 mmol/L (98-107); Creatinine, Serum 0.92 mg/dL (0.70-1.30); EST Glomerular Filtration Rate 87 mL/min (>60); Est Glom Filt Rate - Afr Amer 106 mL/min (>60); Estimated Creatinine Clearance 80.45 ml/min; Glucose 281 mg/dL (74-106); Potassium 3.9 mmol/L (3.5-5.1); Sodium Level 140 mmol/L (136-145)
[2017-10-19 12:24] VITALS: BP 148/73; PULSE 60; RESP 27; O2SAT 97
[2017-10-19 13:03] VITALS: BP 164/74; PULSE 60; RESP 19
--- NOTE | 2017-10-19 13:24 | ED.DEP ---
ED Disposition - Plan for ED Patient: Disposition: Home or Assisted Living Chief Complaint: Chest Pain Instructions: ED Chest Pain Atypical Unkn Cause [facility]errals[facility] [Primary Care Provider] - As soon as possible Additional Instructions: Continue your current medications. Call and follow[facility]up [facility] this coming [facility]. Return if feeling worse.
[2017-10-19] MEDS: Ondansetron 4 MG/2 ML Vial IM (13:38)
[2017-10-19] MEDS: Morphine 4 MG/ML Syringe IV (13:38)
[2017-10-19 14:09] VITALS: BP 144/54; PULSE 60; RESP 19; O2SAT 98
== END 2017-10-19 14:10 | disposition home or self-care (01) ==
PROVIDERS: Emergency Provider Emergency Medicine
DX: R07.9 Chest pain, unspecified (principal); R06.00 Dyspnea, unspecified; R55 Syncope and collapse; I25.10 Atherosclerotic heart disease of native coronary artery without angina pectoris; I69.354 Hemiplegia and hemiparesis following cerebral infarction affecting left non-dominant side; J44.9 Chronic obstructive pulmonary disease, unspecified; E11.9 Type 2 diabetes mellitus without complications; I25.2 Old myocardial infarction; Z79.4 Long term (current) use of insulin; Z95.1 Presence of aortocoronary bypass graft; Z95.0 Presence of cardiac pacemaker
CPT/HCPCS: 71045; 80048; 84484; 85025; 93005; 96372; 96374; 99284; A4216; J2405

== ENCOUNTER 2017-12-10 16:54 | Observation (INO) | payer OTHER, MEDICARE, SELFPAY ==
[2017-12-10] VITALS (15 sets, daily range): BP systolic 126–178; BP diastolic 52–86; PULSE 60–87; RESP 15–23; TEMP 36.3–37.1; O2SAT 93–98; BMI 33.1; BMI 32.1
--- NOTE | 2017-12-10 17:27 | EKG12_ITS ---
Test Reason : Blood Pressure : / mmHG Vent. Rate : 061 BPM Atrial Rate : 058 BPM P-R Int : 226 ms QRS Dur : 120 ms QT Int : 346 ms P-R-T Axes : 081 -19 090 degrees QTc Int : 348 ms Atrial-paced rhythm with prolonged AV conduction Nonspecific ST and T wave abnormality Abnormal ECG Confirmed by DI MCCAIN ([id number]), news videotape editor MODESTA FISHMAN ([id number]) on 12/15/2017 8:45:15 AM Referred By: ÓSCAR Confirmed By:DI MCCAIN
--- NOTE | 2017-12-10 17:27 | CT_ITS ---
STUDY: CT BRAIN WITHOUT CONTRAST REASON FOR EXAM: Male, 67 years old. Weakness. RADIATION DOSAGE (If Supplied By Facility): CTDIvol = ( 44.99 ) mGy, DLP = ( 829.85 ) mGycm TECHNIQUE: Transaxial CT imaging of the brain was performed without administration of intravenous contrast material. Individualized dose optimization techniques were used for this CT. COMPARISON: 09/17/2017. FINDINGS: Normal soft tissue structures. Normal calvarium. There is mild cerebral atrophy with widening of the extra-axial spaces and ventricular dilatation. There are areas of decreased attenuation within the white matter tracts of the supratentorial brain, consistent with microvascular disease changes. Normal basal ganglia and thalami. Normal brainstem. Normal cerebellum. There is no intracranial hemorrhage. There are no findings of an acute ischemic infarction. Normal visualized paranasal sinuses. CT/Brain/Head without Contrast IMPRESSION: 1. No acute process. 2. Stable microvascular ischemic changes and atrophy. Electronically Signed: Kim Mendoza MD at 18:03 EDT Tel , Service support ,
[2017-12-10 17:43] LABS: Absolute Lymphocyte Count 1.17 X10^3/ul (0.83-4.51); Absolute Neutrophil Count 3.8 X10^3/uL (2.0-7.7); Basophil# 0.01 X10^3/uL; Basophil% 0.2 % (0-1); Eosinophil# 0.14 X10^3/uL; Eosinophils% 2.6 % (0-5); Hematocrit 38.9 % (40-54); Hemoglobin 13.1 g/dl (13.0-16.5); Lymphocyte # 1.17 X10^3/ul (4.0); Lymphocyte % 21.5 % (19-41); Mean Corp Hgb Conc 33.7 g/gl (32-36); Mean Corpuscular Hgb 33.1 pg (27.0-32.0); Mean Corpuscular Volume 98.2 fL (80-94); Mean Platelet Vol. 10.8 fl (6.2-12.0); Monocyte# 0.32 X10^3/uL; Monocyte% 5.9 % (0-10); Neutrophil % 69.6 % (47-70); Platelet Count 130 K/mm3 (150-450); RBC Distribution Width CV 13.3 % (11.6-14.6); RBC Distribution Width SD 46.6 fl (35.1-43.9); Red Blood Count 3.96 M/mm3 (4.6-6.2); White Blood Count 5.5 K/mm3 (4.4-11.0)
--- NOTE | 2017-12-10 17:45 | RAD_ITS ---
STUDY: X-RAY CHEST REASON FOR EXAM: Male, 67 years old. Chest pain. TECHNIQUE: Portable chest. COMPARISON: 10/19/2017. FINDINGS: The lungs are clear and expanded. There is no demonstrated pleural abnormality. Sternotomy wires are present. Dual lead cardiac pacemaker is again noted on the left. There is moderate cardiac enlargement. Normal mediastinum and cata. Normal visualized pulmonary arteries. Normal visualized aortic arch and descending thoracic aorta. Normal visualized thoracic spine. Normal visualized ribs, clavicles, and shoulders. There is no demonstrated abnormality of the visualized soft tissue structures of the upper abdomen. RAD/Chest 1 View IMPRESSION: No acute process. Electronically Signed: Kim Mendoza MD at 18:04 EDT Tel , Service support ,
[2017-12-10 17:49] LABS: POSITIVE COUNT NO; POSITIVE DIFFERENTIAL NO; POSITIVE MORPHOLOGY NO
[2017-12-10 18:01] LABS: Anion Gap 7 (5-15); BUN 15 mg/dL (7-18); BUN/Creat Ratio 16.5 RATIO (10-20); Calcium,Total 8.3 mg/dL (8.5-10.1); Chloride 103 mmol/L (98-107); Creatinine, Serum 0.91 mg/dL (0.70-1.30); EST Glomerular Filtration Rate 89 mL/min (>60); Est Glom Filt Rate - Afr Amer 107 mL/min (>60); Estimated Creatinine Clearance 91.58 ml/min; Glucose 160 mg/dL (74-106); Potassium 3.7 mmol/L (3.5-5.1); Sodium Level 141 mmol/L (136-145)
[2017-12-10 18:06] LABS: Bedside Glucose 147 mg/dL (70-110)
[2017-12-10 18:13] LABS: Prothrombin Time (Protime)PT. 13.4 SECONDS (11.7-14.9)
[2017-12-10 18:14] LABS: Partial Thromboplast Time 36.7 Seconds (24.1-36.2)
--- NOTE | 2017-12-10 18:45 | ED.DCSUM_ITS ---
- ER Visit Summary Date of Service: 12/10/17 Chief Complaint: Difficulty speaking left-sided weakness History of Present Illness: The patient is a 67 M who presents with difficulty speaking and left-sided weakness. He has had similar episodes on multiple prior occasions. His states he has undergone significant workup without a clear explanation of his symptoms. He states he was not feeling well this morning. He then began to have grunting and mumbling speech at about noon. He has appeared to have left-sided weakness and numbness. He also indicates that he is having chest pain and difficulty breathing. History is limited because he will not speak or answer questions clearly. Physical Examination: Blood pressure 161/76 vitals otherwise unremarkable Moist mucous membranes Heart regular rate and rhythm Lungs clear Abdomen soft Patient has mumbling speech and grunting however he does not appear to have true dysarthria he does not have aphasia his total NIH scale is 7 however it is difficult to properly is sinus score as I do not believe he is being cooperative with exam. When asked to hold his left arm up he was able to do this but then let it completely drop all at once. When he was asked to roll onto his side to auscultate his lungs he actually reached over to the other bedrail and grabbed it with his left arm. He would not lift his left leg up against gravity willingly at all. However again when he was asked to roll onto his side to auscultate his lungs he actually bend his leg up and used his foot to push himself over to the side Test Results: EKG shows a paced rhythm at a rate of 61 with no acute ischemic changes. Glucose 160. INR normal. Troponin 0 0.019. Chest x-ray shows no acute process. CT of the head shows no acute process stable microvascular ischemic changes. Emergency Department Course and Treatment: Patient's exam is inconsistent. I do believe there is a psychiatric component or component of conversion disorder. Nursing notes that when given applesauce for his swallowing exam he was able lift this up with his left arm. However he is also complaining of chest pain with a history of coronary disease prior bypass and stents. He still does need to undergo a cardiac rule out. He was discussed with the hospitalist will be admitted. Treatment Plan: [] Disposition: Admit Impression: Chest pain Left-sided weakness This note was generated with [employer] dictation software. It may contain incorrect words, spelling, and punctuation that were not noted in review of the chart prior to signing ED Disposition - Plan for ED Patient: Chief Complaint: Chest Pain [facility]errals[facility] [Primary Care Provider] -
--- NOTE | 2017-12-10 19:25 | PCM.HP.STD ---
Problem List (1) Left-sided weakness Status: Acute History of Present Illness Date of Admission: 12/10/17 Chief Complaint: left sided weakness The patient is a 67 year old M with an extensive past medical history including hypertension, diabetes and high cholesterol. He was admitted through the ED with a complaint of left-sided weakness and slurring of his speech was started around 12 noon today. According to his who he was taken from us patient could not really speak, he has had such spells in the past the last one being when he was admitted up at the [place] a few months ago. She states at lunchtime he was fine and then subsequent to that he started slurring his speech and could not move his left arm and left leg. She could not give me any other history presents said he had not had any fever or chills or did not have any cough that she had noted. Patient could not his head in response to questions and noted saying that he had chest pain over the site of his pacemaker which is chronic. He denied any headache, blurred vision, palpitations, but admitted to tingling and numbness in his left upper and lower extremities. Review of systems is otherwise negative. Labs were significant only for blood pressure of 161/76 and EKG showed paced rhythm with a rate of 61 and no acute ischemic changes. Troponin was 0.019 and chest x-ray showed no acute cardiopulmonary process. CT of the head showed no acute intracranial process. He has been admitted to be worked up for TIA. Of note it must be stated that given the patient said he could not move his left upper extremity and left lower extremity, he was holding applesauce with his left hand at the time that I was reviewing him and was able to move his left arm hand to give me the applesauce to put on the table for him. He was able to sit up unassisted by supporting himself on his left arm even though he said he could not move his left arm or left lower extremity. [] Past Medical History Past Medical History (Chronic Problems): Chronic Problems Hyperlipidemia (Chronic) Hypertension (Chronic) Obesity (Chronic) Pacemaker (Chronic) 2001 Weakness of limb (Chronic) Left-sided weakness, chronic Chronic respiratory failure (Chronic) baseline 3L continuously CAD (coronary artery disease) (Chronic) Cardiac catheterization 02/24/2017?normal LV size should not, EF 55%, [place] multivessel CAD, patent SVG to diagonal 1, OM 2, and RCA, MASON to LAD previously reported as atretic/nonfunctional (not reevaluated at that time), advised medical therapy DM type 2 (diabetes mellitus, type 2) (Chronic) History of smoking (Chronic) Obstructive sleep apnea (Chronic) Seizure (Chronic) left sided tingling left body (Chronic) S/P CABG (coronary artery bypass graft) (Chronic) S/P PTCA (percutaneous transluminal coronary angioplasty) (Chronic) CVA (cerebral vascular accident) (Chronic) Residual left-sided weakness Allergies ezetimibe Allergy (Verified 10/19/17 11:03) Unknown Fish Containing Products Allergy (Verified 10/19/17 11:03) Unknown glyburide Allergy (Verified 10/19/17 11:03) Unknown lisinopril Allergy (Verified 10/19/17 11:03) Unknown metoprolol Allergy (Verified 10/19/17 11:03) Unknown simvastatin Allergy (Verified 10/19/17 11:03) Unknown Home Medications: Ambulatory Orders Medication Instructions Recorded Atenolol [Tenormin (beta theron)] 100 mg PO DAILY 08/09/16 Atorvastatin Calcium [Lipitor] 80 mg PO QHS 08/09/16 Finasteride [Proscar] 5 mg PO DAILY 08/09/16 Furosemide [Lasix] 20 mg PO DAILY 08/09/16 Multivitamin with Minerals/Lut 1 tab PO DAILY 08/09/16 [Pub Multivitamin 50 Plus Tab] Pantoprazole Sodium [Protonix] 40 mg PO BID 08/09/16 Tamsulosin HCl [Flomax] 0.8 mg PO QHS 08/09/16 Clopidogrel Bisulfate [Clopidogrel] 75 mg PO DAILY 12/25/16 Alprostadil [Caverject] 20 mcg IC X1 PRN 02/22/17 Dextrose [Glucose] 4 gm PO X1 PRN 02/22/17 Ketoconazole 1 applicatio TOPICAL DAILY PRN PRN 02/22/17 Aspirin E.C. [Ecotrin] 81 mg PO DAILY@0800 09/01/17 Cholecalciferol (VIT D3) [Vitamin 3,000 unit PO DAILY 09/01/17 D3] Escitalopram Oxalate [Lexapro] 10 mg PO DAILY 09/01/17 Insulin Regular, Human [Humulin R See Protocol SQ TIDCM 09/01/17 U-500 Kwikpen] Ranolazine [Ranexa] 1,000 mg PO BID 09/01/17 Surgical History: angioplasty, coronary bypass surgery, pacemaker implantation, - - cabg,cholecystectemy, hernia, left knee, 4 stents Psychiatric History: No pertinent psych hx, - - possible conversion disorder anxiety Lives: Spouse/ Significant Other Smoking Status: Former smoker Tobacco Use: Cigarettes Alcohol: Occasional Drugs: None - *Family History Maternal History Items: Heart Disease Paternal History Items: Unknown Review of Systems Constitutional: Denies: Chills, Fever Eyes: Denies: Blurred vision Cardiovascular: Reports: Chest Pain. Denies: Chest Pressure, Chest Tightness Respiratory: Denies: Cough, Shortness of Breath Gastrointestinal: Denies: Abdominal Pain, Vomiting Musculoskeletal: Denies: Arm Pain, Back Pain Neurological: Reports: Change in Speech, Slurred speech, Numbness - tremor, numbness and tingling of LUE and LLE, Tingling, Tremor. Denies: Blurred vision, Confusion Psychiatric: Denies: Anxiety, Depression, Homicidal Ideations, Suicidal Ideations Hematologic/ Lymphatic: Denies: Easy Bruising, Easy Bleeding VTE Information - Inpt Only VTE Present on Admission: No VTE Pharm Prophylaxis ordered?: Yes Patient Problems: Active and Suspected Problems Left-sided weakness (Acute) - Physical Exam General: Alert, Cooperative, No apparent distress HEENT: Atraumatic, PERRLA, EOMI, Normocephalic Oral: Moist Mucosa Neck: Supple, No JVD, Negative Carotid Bruits Lungs: Clear to auscultation, Normal air movement, No rhonchi, No wheeze Cardiovascular: Regular rate, Regular Rhythm, Normal S1, Normal S2, No murmurs, - - pacemaker in place; no tenderness over site of pacemaker Abdomen: Bowel Sounds Present, Soft, Non Tender, Obese Extremities: No clubbing, No cyanosis, No edema, Capillary Refill Less than 3 Seconds Skin: No rashes, No breakdown Musculoskeletal: No Tenderness to Palpation of Joints or Extremities Lymphatic: No Cervical, Supraclavicular, or Inguinal Adenopathy Neurological: Cranial nerves II-XII grossly intact, Slurred Speech, Muscle tone normal, - - power 5/5 in RUE and RLE. Patient indicated he couldnt lift LUE and LLE, but seems to be actively resisting movement of the LUE and LLE: it does seem as if he is malingering. HE says he has numbness in his LUE and LLE, but flinches to pinprick in those extremities. SPeech is slurred, and he is just mumbling to himself Psych/Mental Status: Normal Affect, Appropriate Vital Signs Temp Pulse Resp BP Pulse Ox 97.3 F L 60 20 H 170/78 H 97 12/10/17 16:55 12/10/17 18:47 12/10/17 18:47 12/10/17 18:47 12/10/17 18:47 Oxygen Flow Rate (L/min) 2 Oxygen Delivery Method Room Air Weight: 250 lb 0.067 oz Body Mass Index (BMI) 32.1 Finger Stick Blood Glucose 147 Laboratory Tests Past 24 Hrs 12/10/17 12/10/17 12/10/17 17:03 17:03 17:03 WBC 5.5 RBC 3.96 L Hgb 13.1 Hct 38.9 L MCV 98.2 H MCH 33.1 H MCHC 33.7 RDW 13.3 RDW Differential 46.6 H Plt Count 130 L MPV 10.8 Immature Gran % (Auto) 0.200 Neut % (Auto) 69.6 Lymph % (Auto) 21.5 [place] % (Auto) 5.9 Eos % (Auto) 2.6 Baso % (Auto) 0.2 Absolute Neuts (auto) 3.8 Absolute Lymphs (auto) 1.17 Total Counted Not Reportable PT 13.4 INR 1.0 APTT 36.7 H Sodium 141 Potassium 3.7 Chloride 103 Carbon Dioxide 31.0 Anion Gap 7 BUN 15 Creatinine 0.91 Estim Creat Clear Calc 91.58 Est GFR (MDRD) Af Amer 107 Est GFR (MDRD) Non-Af 89 BUN/Creatinine Ratio 16.5 Glucose 160 H Calcium 8.3 L Troponin I 0.019 POC Glucose 12/10/17 18:02 POC Glucose 147 H Diagnostic Data Brain CT 12/10/17 17:27 IMPRESSION: 1. No acute process. 2. Stable microvascular ischemic changes and atrophy. Electronically Signed: Kim Mendoza MD at 18:03 EDT Tel , Service support , Chest X-Ray 12/10/17 17:45 IMPRESSION: No acute process. Electronically Signed: Kim Mendoza MD at 18:04 EDT Tel , Service support , Assessment/Plan All Active Problems Left-sided weakness (Acute) Unstable angina (Ruled-out) Hematuria (Resolved) Chest pain (Acute) [age]-year-old man presenting with left-sided weakness 1. TIA vs malingering complains of left sided weakness. I am not sure he really has weakness on his left side, as he actively seems to resist movement and is able to hold apple sauce with his left hand, he is also able to sit up supporting himself with his left arm. admit to PCU with telemetry NIHSS-7. brain CT was negative for any acute intracranial process Patient has a pacemaker which he does not with his MRI compatible or not. Request records from [place] to see if it is compatible if it is we will get MRI of brain and MRA of the head and neck neurology consult last echo(2017): EF of 65%. Was otherwise normal. Will defer on echo for now. aspirin 81mg daily. lipid panel checked 09/02 was WNL. will hold off on lipid panel now. 2. CHest pain rule out ACS: Initial troponin negative. EKG showed no acute ST changes. We will cycle troponin. Aspirin 81 mg daily. SL nitroglycerin prn. 3. CAD : on aspirin and plavix. on statin and ranexa. 4. Diabetes mellitus: Continue home dose of insulin. Accu-Cheks AC at bedtime. Check A1c. 5. Hypertension: On atenolol and furosemide 6. Seizure disorder: On Keppra 7. BPH: On Flomax and finasteride 8. sleep apnea: on BIPAP qhs. Has his own machine. DVTProphylaxis: Heparin CODE STATUS: Full code. Patient and counseled about different types of CODE STATUS including full code, DNR CCA DNR CCA. Since patient could not answer because of his severe dysarthria, wants it for him and stated she wants him to be full code. Total [id number] time 60 minutes. Code Visit OBSV E&M: 43108 Initial observation care L3 Procedures: 78819 Advncd Care Plan 30 Min
--- NOTE | 2017-12-10 19:29 | HP.PCM_ITS ---
Problem List (1) Left-sided weakness Status: Acute History of Present Illness Date of Admission: 12/10/17 Chief Complaint: left sided weakness The patient is a 67 year old M with an extensive past medical history including hypertension, diabetes and high cholesterol. He was admitted through the ED with a complaint of left-sided weakness and slurring of his speech was started around 12 noon today. According to his who he was taken from us patient could not really speak, he has had such spells in the past the last one being when he was admitted [place] a few months ago. She states at lunchtime he was fine and then subsequent to that he started slurring his speech and could not move his left arm and left leg. She could not give me any other history presents said he had not had any fever or chills or did not have any cough that she had noted. Patient could not his head in response to questions and noted saying that he had chest pain over the site of his pacemaker which is chronic. He denied any headache, blurred vision, palpitations, but admitted to tingling and numbness in his left upper and lower extremities. Review of systems is otherwise negative. Labs were significant only for blood pressure of 161/76 and EKG showed paced rhythm with a rate of 61 and no acute ischemic changes. Troponin was 0.019 and chest x-ray showed no acute cardiopulmonary process. CT of the head showed no acute intracranial process. He has been admitted to be worked up for TIA. Of note it must be stated that given the patient said he could not move his left upper extremity and left lower extremity, he was holding applesauce with his left hand at the time that I was reviewing him and was able to move his left arm hand to give me the applesauce to put on the table for him. He was able to sit up unassisted by supporting himself on his left arm even though he said he could not move his left arm or left lower extremity. [] Past Medical History Past Medical History (Chronic Problems): Chronic Problems Hyperlipidemia (Chronic) Hypertension (Chronic) Obesity (Chronic) Pacemaker (Chronic) 2001 Weakness of limb (Chronic) Left-sided weakness, chronic Chronic respiratory failure (Chronic) baseline 3L continuously CAD (coronary artery disease) (Chronic) Cardiac catheterization 02/24/2017?normal LV size should not, EF 55%, [place] multivessel CAD, patent SVG to diagonal 1, OM 2, and RCA, MASON to LAD previously reported as atretic/nonfunctional (not reevaluated at that time), advised medical therapy DM type 2 (diabetes mellitus, type 2) (Chronic) History of smoking (Chronic) Obstructive sleep apnea (Chronic) Seizure (Chronic) left sided tingling left body (Chronic) S/P CABG (coronary artery bypass graft) (Chronic) S/P PTCA (percutaneous transluminal coronary angioplasty) (Chronic) CVA (cerebral vascular accident) (Chronic) Residual left-sided weakness Allergies ezetimibe Allergy (Verified 10/19/17 11:03) Unknown Fish Containing Products Allergy (Verified 10/19/17 11:03) Unknown glyburide Allergy (Verified 10/19/17 11:03) Unknown lisinopril Allergy (Verified 10/19/17 11:03) Unknown metoprolol Allergy (Verified 10/19/17 11:03) Unknown simvastatin Allergy (Verified 10/19/17 11:03) Unknown Home Medications: Ambulatory Orders Medication Instructions Recorded Atenolol [Tenormin (beta theron)] 100 mg PO DAILY 08/09/16 Atorvastatin Calcium [Lipitor] 80 mg PO QHS 08/09/16 Finasteride [Proscar] 5 mg PO DAILY 08/09/16 Furosemide [Lasix] 20 mg PO DAILY 08/09/16 Multivitamin with Minerals/Lut 1 tab PO DAILY 08/09/16 [Pub Multivitamin 50 Plus Tab] Pantoprazole Sodium [Protonix] 40 mg PO BID 08/09/16 Tamsulosin HCl [Flomax] 0.8 mg PO QHS 08/09/16 Clopidogrel Bisulfate [Clopidogrel] 75 mg PO DAILY 12/25/16 Alprostadil [Caverject] 20 mcg IC X1 PRN 02/22/17 Dextrose [Glucose] 4 gm PO X1 PRN 02/22/17 Ketoconazole 1 applicatio TOPICAL DAILY PRN PRN 02/22/17 Aspirin E.C. [Ecotrin] 81 mg PO DAILY@0800 09/01/17 Cholecalciferol (VIT D3) [Vitamin 3,000 unit PO DAILY 09/01/17 D3] Escitalopram Oxalate [Lexapro] 10 mg PO DAILY 09/01/17 Insulin Regular, Human [Humulin R See Protocol SQ TIDCM 09/01/17 U-500 Kwikpen] Ranolazine [Ranexa] 1,000 mg PO BID 09/01/17 Surgical History: angioplasty, coronary bypass surgery, pacemaker implantation, - - cabg,cholecystectemy, hernia, left knee, 4 stents Psychiatric History: No pertinent psych hx, - - possible conversion disorder anxiety Lives: Spouse/ Significant Other Smoking Status: Former smoker Tobacco Use: Cigarettes Alcohol: Occasional Drugs: None - *Family History Maternal History Items: Heart Disease Paternal History Items: Unknown Review of Systems Constitutional: Denies: Chills, Fever Eyes: Denies: Blurred vision Cardiovascular: Reports: Chest Pain. Denies: Chest Pressure, Chest Tightness Respiratory: Denies: Cough, Shortness of Breath Gastrointestinal: Denies: Abdominal Pain, Vomiting Musculoskeletal: Denies: Arm Pain, Back Pain Neurological: Reports: Change in Speech, Slurred speech, Numbness - tremor, numbness and tingling of LUE and LLE, Tingling, Tremor. Denies: Blurred vision, Confusion Psychiatric: Denies: Anxiety, Depression, Homicidal Ideations, Suicidal Ideations Hematologic/ Lymphatic: Denies: Easy Bruising, Easy Bleeding VTE Information - Inpt Only VTE Present on Admission: No VTE Pharm Prophylaxis ordered?: Yes Patient Problems: Active and Suspected Problems Left-sided weakness (Acute) - Physical Exam General: Alert, Cooperative, No apparent distress HEENT: Atraumatic, PERRLA, EOMI, Normocephalic Oral: Moist Mucosa Neck: Supple, No JVD, Negative Carotid Bruits Lungs: Clear to auscultation, Normal air movement, No rhonchi, No wheeze Cardiovascular: Regular rate, Regular Rhythm, Normal S1, Normal S2, No murmurs, - - pacemaker in place; no tenderness over site of pacemaker Abdomen: Bowel Sounds Present, Soft, Non Tender, Obese Extremities: No clubbing, No cyanosis, No edema, Capillary Refill Less than 3 Seconds Skin: No rashes, No breakdown Musculoskeletal: No Tenderness to Palpation of Joints or Extremities Lymphatic: No Cervical, Supraclavicular, or Inguinal Adenopathy Neurological: Cranial nerves II-XII grossly intact, Slurred Speech, Muscle tone normal, - - power 5/5 in RUE and RLE. Patient indicated he couldnt lift LUE and LLE, but seems to be actively resisting movement of the LUE and LLE: it does seem as if he is malingering. HE says he has numbness in his LUE and LLE, but flinches to pinprick in those extremities. SPeech is slurred, and he is just mumbling to himself Psych/Mental Status: Normal Affect, Appropriate Vital Signs Temp Pulse Resp BP Pulse Ox 97.3 F L 60 20 H 170/78 H 97 12/10/17 16:55 12/10/17 18:47 12/10/17 18:47 12/10/17 18:47 12/10/17 18:47 Oxygen Flow Rate (L/min) 2 Oxygen Delivery Method Room Air Weight: 250 lb 0.067 oz Body Mass Index (BMI) 32.1 Finger Stick Blood Glucose 147 Laboratory Tests Past 24 Hrs 12/10/17 12/10/17 12/10/17 17:03 17:03 17:03 WBC 5.5 RBC 3.96 L Hgb 13.1 Hct 38.9 L MCV 98.2 H MCH 33.1 H MCHC 33.7 RDW 13.3 RDW Differential 46.6 H Plt Count 130 L MPV 10.8 Immature Gran % (Auto) 0.200 Neut % (Auto) 69.6 Lymph % (Auto) 21.5 [place] % (Auto) 5.9 Eos % (Auto) 2.6 Baso % (Auto) 0.2 Absolute Neuts (auto) 3.8 Absolute Lymphs (auto) 1.17 Total Counted Not Reportable PT 13.4 INR 1.0 APTT 36.7 H Sodium 141 Potassium 3.7 Chloride 103 Carbon Dioxide 31.0 Anion Gap 7 BUN 15 Creatinine 0.91 Estim Creat Clear Calc 91.58 Est GFR (MDRD) Af Amer 107 Est GFR (MDRD) Non-Af 89 BUN/Creatinine Ratio 16.5 Glucose 160 H Calcium 8.3 L Troponin I 0.019 POC Glucose 12/10/17 18:02 POC Glucose 147 H Diagnostic Data Brain CT 12/10/17 17:27 IMPRESSION: 1. No acute process. 2. Stable microvascular ischemic changes and atrophy. Electronically Signed: Kim Mendoza MD at 18:03 EDT Tel , Service support , Chest X-Ray 12/10/17 17:45 IMPRESSION: No acute process. Electronically Signed: Kim Mendoza MD at 18:04 EDT Tel , Service support , Assessment/Plan All Active Problems Left-sided weakness (Acute) Unstable angina (Ruled-out) Hematuria (Resolved) Chest pain (Acute) [age]-year-old man presenting with left-sided weakness 1. TIA vs malingering * complains of left sided weakness. I am not sure he really has weakness on his left side, as he actively seems to resist movement and is able to hold apple sauce with his left hand, he is also able to sit up supporting himself with his left arm. * admit to PCU with telemetry * NIHSS-7. * brain CT was negative for any acute intracranial process * Patient has a pacemaker which he does not with his MRI compatible or not. Request records from [place] to see if it is compatible if it is we will get MRI of brain and MRA of the head and neck * neurology consult * last echo(2017): EF of 65%. Was otherwise normal. Will defer on echo for now. * aspirin 81mg daily. * lipid panel checked 09/02 was WNL. will hold off on lipid panel now. * 2. CHest pain rule out ACS: Initial troponin negative. EKG showed no acute ST changes. We will cycle troponin. Aspirin 81 mg daily. SL nitroglycerin prn. 3. CAD : on aspirin and plavix. on statin and ranexa. 4. Diabetes mellitus: Continue home dose of insulin. Accu-Cheks AC at bedtime. Check A1c. 5. Hypertension: On atenolol and furosemide 6. Seizure disorder: On Keppra 7. BPH: On Flomax and finasteride 8. sleep apnea: on BIPAP qhs. Has his own machine. DVTProphylaxis: Heparin CODE STATUS: Full code. * Patient and counseled about different types of CODE STATUS including full code, DNR CCA DNR CCA. Since patient could not answer because of his severe dysarthria, wants it for him and stated she wants him to be full code. Total [id number]-ql-yrhy time 60 minutes. Code Visit OBSV E&M: 34429 Initial observation care L3 Procedures: 24423 Advncd Care Plan 30 Min
--- NOTE | 2017-12-10 19:40 | CDU_ITS ---
Reason For Study: CVA Rt. Velocities/BP Lt. Velocities/BP Prox CCA 100.0/14.1 cm/sec. Prox CCA 113.0/17.0 cm/sec. Mid CCA 99.7/11.1 cm/sec. Mid CCA 108.0/16.4 cm/sec. Dist CCA 89.7/13.5 cm/sec. Dist CCA 92.6/16.4 cm/sec. Prox ICA 62.5/12.2 cm/sec. Prox ICA 82.2/14.7 cm/sec. Mid ICA 71.8/18.3 cm/sec. Mid ICA 39.0/13.7 cm/sec. Dist ICA 67.6/19.9 cm/sec. Dist ICA 50.8/16.9 cm/sec. Rt. ICA/CCA = .72. Lt. ICA/CCA = .76. Prox ECA 99.7/10.6 cm/sec. Prox ECA 95.0/9.3 cm/sec. Rt. Vert. 51.6/14.1 cm/sec. Lt. Vert. 53.4/14.1 cm/sec. Right Extracranial There is intimal thickening but no significant atherosclerotic plaque noted in the right common carotid artery. There is heterogeneous, irregular atherosclerotic plaque noted in the right internal carotid artery. There is homogeneous, smooth atherosclerotic plaque noted in the right external carotid artery. Antegrade flow is noted in the right vertebral artery. Left Extracranial There is intimal thickening but no significant atherosclerotic plaque noted in the left common carotid artery. There is heterogeneous, irregular atherosclerotic plaque noted in the left internal carotid artery. There is intimal thickening but no significant atherosclerotic plaque noted in the left external carotid artery. Antegrade flow is noted in the left vertebral artery. Procedure Carotid Duplex [id number]. Exam performed in department. Interpretation Summary There is < 50% stenosis in bilateral extracranial internal carotid arteries (ICA). There is irregular heterogenous atherosclerotic plque noted in bilateral ICAs. Antegrade flow is noted in bilateral vertebral arteries. Ordering Physician: Patito Barnes Performed By: Sybil Joya RVT
--- NOTE | 2017-12-10 20:05 | EKG12_ITS ---
Test Reason : CP Blood Pressure : / mmHG Vent. Rate : 060 BPM Atrial Rate : 060 BPM P-R Int : 256 ms QRS Dur : 120 ms QT Int : 462 ms P-R-T Axes : 000 -12 075 degrees QTc Int : 462 ms Atrial-paced rhythm with prolonged AV conduction Non-specific intra-ventricular conduction delay Nonspecific ST abnormality Abnormal ECG When compared with ECG of 10-DEC-2017 16:57, MANUAL COMPARISON REQUIRED, DATA IS UNCONFIRMED Confirmed by DI MCCAIN ([id number]), online content editor MODESTA FISHMAN ([id number] on 12/15/2017 12:47:56 PM Referred By: DEL Confirmed By:DI MCCAIN
[2017-12-10] MEDS: 0.9% NaCl Peripheral Flush Adult/Peds IV ×2 (21:23→21:39)
[2017-12-10] MEDS: Morphine 2 MG/ML Syringe IV (21:23)
[2017-12-10] MEDS: Pantoprazole Sodium 40 MG Tablet PO (21:27)
[2017-12-10] MEDS: Ranolazine 500 MG Tablet 1000 MG PO (21:27)
[2017-12-10] MEDS: Atorvastatin Calcium 80 MG Tablet PO (21:28)
[2017-12-10] MEDS: Tamsulosin HCl 0.4 MG Capsule 0.8 MG PO (21:28)
[2017-12-10] MEDS: hydrALAZINE 20 MG/ML Vial 10 MG IV (21:38)
[2017-12-10 23:00] LABS: Bedside Glucose 122 mg/dL (70-110)
[2017-12-11] VITALS (8 sets, daily range): BP systolic 118–162; BP diastolic 63–71; PULSE 60–64; RESP 16–18; TEMP 36.2–36.7; O2SAT 96–99; BMI 32.1
[2017-12-11] MEDS: Morphine 2 MG/ML Syringe IV ×2 (02:45→10:33)
[2017-12-11] MEDS: 0.9% NaCl Peripheral Flush Adult/Peds IV ×2 (02:45→10:33)
[2017-12-11 05:52] LABS: Absolute Lymphocyte Count 1.41 X10^3/ul (0.83-4.51); Absolute Neutrophil Count 3.5 X10^3/uL (2.0-7.7); Basophil# 0.01 X10^3/uL; Basophil% 0.2 % (0-1); Eosinophil# 0.17 X10^3/uL; Eosinophils% 3.1 % (0-5); Hematocrit 37.8 % (40-54); Hemoglobin 12.6 g/dl (13.0-16.5); Lymphocyte # 1.41 X10^3/ul (4.0); Lymphocyte % 25.7 % (19-41); Mean Corp Hgb Conc 33.3 g/gl (32-36); Mean Corpuscular Hgb 32.6 pg (27.0-32.0); Mean Corpuscular Volume 97.9 fL (80-94); Mean Platelet Vol. 10.7 fl (6.2-12.0); Monocyte# 0.35 X10^3/uL; Monocyte% 6.4 % (0-10); Neutrophil # 3.54 X10^3/uL (2.7-7.7); Neutrophil % 64.4 % (47-70); Platelet Count 123 K/mm3 (150-450); RBC Distribution Width CV 13.4 % (11.6-14.6); RBC Distribution Width SD 45.8 fl (35.1-43.9); Red Blood Count 3.86 M/mm3 (4.6-6.2); White Blood Count 5.5 K/mm3 (4.4-11.0)
--- NOTE | 2017-12-11 05:55 | EKG12_ITS ---
Test Reason : AM Blood Pressure : / mmHG Vent. Rate : 061 BPM Atrial Rate : 060 BPM P-R Int : 000 ms QRS Dur : 120 ms QT Int : 488 ms P-R-T Axes : 000 -27 063 degrees QTc Int : 491 ms Wide QRS rhythm Nonspecific ST abnormality Abnormal ECG When compared with ECG of 10-DEC-2017 20:05, MANUAL COMPARISON REQUIRED, DATA IS UNCONFIRMED Confirmed by DI MCCAIN ([id number]), editorial intern MODESTA FISHMAN ([id number] on 12/15/2017 12:46:50 PM Referred By: DEL Confirmed By:DI MCCIAN
[2017-12-11 06:01] LABS: Anion Gap 7 (5-15); BUN 18 mg/dL (7-18); BUN/Creat Ratio 21.5 RATIO (10-20); Calcium,Total 8.1 mg/dL (8.5-10.1); Chloride 102 mmol/L (98-107); Creatinine, Serum 0.84 mg/dL (0.70-1.30); EST Glomerular Filtration Rate 97 mL/min (>60); Est Glom Filt Rate - Afr Amer 118 mL/min (>60); Estimated Creatinine Clearance 99.22 ml/min; Glucose 195 mg/dL (74-106); Potassium 3.5 mmol/L (3.5-5.1); Sodium Level 140 mmol/L (136-145)
[2017-12-11] MEDS: Aspirin E.C. 81 MG Tablet PO (06:05)
[2017-12-11] MEDS: Clopidogrel Bisulfate 75 MG Tablet PO (06:05)
[2017-12-11 06:06] LABS: POSITIVE COUNT NO; POSITIVE DIFFERENTIAL NO; POSITIVE MORPHOLOGY NO
[2017-12-11 06:11] LABS: International Normalized Ratio 1.1; Prothrombin Time (Protime)PT. 14.6 SECONDS (11.7-14.9)
[2017-12-11 06:12] LABS: Partial Thromboplast Time 37.6 Seconds (24.1-36.2)
[2017-12-11 06:46] LABS: Bedside Glucose 194 mg/dL (70-110)
--- NOTE | 2017-12-11 08:00 | STEWCON_ITS ---
[id number] ECHO^STEWCON^Stress Test Echo W/Contrast [id number] TAG_START Cardiovascular Services Stress Echocardiogram [facility] [place] [id number] Ordering Physician: Cameron^Patito^Iva^^ TAG_ENDED TAG_START Name: GIOVANNY LEONARDO Study Date: 12/11/2017 08:51 AM Patient Location: [facility]^1 BSA: 2.3 m2 : 1950 Gender: Male Height: 72 in Age: 67 yrs Weight: 250 lb History: HYPERCHOLESTEROLEMIA, SMOKER, HTN, FAMILY HX, DMII, PACEMAKER, CAD,PTCA, SLEEP APNEA, S/P CABG, SEIZURE TAG_ENDED Reason For Study: CHEST PAIN Stress Results Protocol: Dobutamine Maximum Predicted HR: 153 bpm Target HR: 130 bpm % Maximum Predicted HR: 92 % Heart Stage Duration Rate BP Dose Comment (mm:ss) (bpm) BASELINE 60 152/78 3CC DEFINITY, O2 AT 3LNC STAGE 1 3:32 63 148/7110.001.5 DEFINITY STAGE 2 3:00 85 169/6920.00 STAGE 3 3:00 120 170/7630.000.25 MG ATROPINE/ PVC, COUPLETS NOTED STAGE 4 2:18 141 / 40.001.5 DEFINITY, CHEST PAIN 7/10 1CC DEFINITY, NITRO X3 DOSES GIVEN PER CHEST PAIN PROTOCOL. RECOVERY 103 132/73 PATIENT CONTINUES TO COMPLAIN 7/10 CHEST PAIN. REPORTED TO NADJA RN PCU NURSE Stress Duration: 11:50 mm:ss Maximum Stress HR: 141 bpm TAG_START I Segments Size 1-2 small X - Cannot 1 - Normal 2 - 3 - Akinetic 4 - Dyskinetic3-5 moderate Interpret Hypokinetic 6-14 large 5 - Aneurysmal 15-16 diffuse TAG_ENDED Baseline Echocardiogram Findings The estimated ejection fraction is 55 %. Stress Echo Wall motion Data Resting WM Intermediate WM Stress WM Resting Wall Motion Wall Motion Stress No regional wall motion No regional wall motion abnormalities noted. abnormalities noted. EKG Data Paced atrial rhythm with normal intrinsic vent. response. The patient was titrated from 10 mcg to a maximum of 40 mcg of dobutamine during the stress. The maximum heart rate attained was 144 beats per minute. This was 94% of maximum predicted heart rate. During dobutamine infusion, there were no ST or T wave changes noted to suggest ischemia. Interpretation Summary The study was technically difficult. Contrast injection was performed. The estimated ejection fraction is 55 %. Normal, adequate, modified William treadmill echocardiogram. Negative for ischemia by EKG and echocardiographic criteria. No anginal symptoms noted. No arrhythmias noted. Appropriate blood pressure response to exercise. Markedly reduced exercise capacity for age. Moderate dyspnea experienced during peak exercise which may be an anginal equivalent. Final LVEF is 75%. No complications. TAG_START TAG_ENDED Ordering Physician: Cameron^Patito^Iva^^ Performed By: Lili Zazueta, RDCS, RVT
--- NOTE | 2017-12-11 09:04 | CASEMGMT ---
Clinicals faxed to the the [place] transfer center at this time. Message left with [place] transfer center in regards to pt at this time. Pt is out of the dept for testing at this time. This RN CM will f/u with pt regarding preference to transfer once returned. SStaten RN CM
[2017-12-11] MEDS: Atenolol 100 MG Tablet PO (11:37)
[2017-12-11] MEDS: Ranolazine 500 MG Tablet 1000 MG PO (11:37)
[2017-12-11] MEDS: Furosemide 20 MG Tablet PO (11:37)
--- NOTE | 2017-12-11 11:59 | NURSING ---
CLARIFIED HOME INSULIN DOSE WITH . SAME WHAT WAS IN HOME MEDICATION LIST. MED LIST CORRECT. SENT NOTE TO PHARMACY THAT INSULIN WAS CORRECT ON HOME MED LIST.
[2017-12-11 12:01] LABS: Bedside Glucose 204 mg/dL (70-110)
--- NOTE | 2017-12-11 12:49 | PCM.CONS.GEN ---
Reason for Consult Date of Consultation: 12/11/17 Reason for Consultation: LEFT SIDED WEAKNESS AND LANGUAGE ABNORMALITY History of Present Illness: The patient is a 67 year old M with pacer, multiple aphasia spells without physiologic cause, and nonphysiologic aspects. presented with recurrent spell. had been on and off keppra with same frequency of spells, had been told several weeks ago to dc keppra due to nonphysiologic spells by mo neurologist. presented with aphasia as well as left sided weakness, all improved, still persistent impairement of verbal expression without impairment of comprehension, writtent language intact per . cardiac workup otherwise. asks about nerves. Past Medical History Past Medical History (Chronic Problems): Chronic Problems Hyperlipidemia (Chronic) Hypertension (Chronic) Obesity (Chronic) Pacemaker (Chronic) 2001 Weakness of limb (Chronic) Left-sided weakness, chronic Chronic respiratory failure (Chronic) baseline 3L continuously CAD (coronary artery disease) (Chronic) Cardiac catheterization 02/24/2017?normal LV size should not, EF 55%, cachil dehe multivessel CAD, patent SVG to diagonal 1, OM 2, and RCA, MASON to LAD previously reported as atretic/nonfunctional (not reevaluated at that time), advised medical therapy DM type 2 (diabetes mellitus, type 2) (Chronic) History of smoking (Chronic) Obstructive sleep apnea (Chronic) Seizure (Chronic) left sided tingling left body (Chronic) S/P CABG (coronary artery bypass graft) (Chronic) S/P PTCA (percutaneous transluminal coronary angioplasty) (Chronic) CVA (cerebral vascular accident) (Chronic) Residual left-sided weakness Allergies ezetimibe Allergy (Verified 10/19/17 11:03) Unknown Fish Containing Products Allergy (Verified 10/19/17 11:03) Unknown glyburide Allergy (Verified 10/19/17 11:03) Unknown lisinopril Allergy (Verified 10/19/17 11:03) Unknown metoprolol Allergy (Verified 10/19/17 11:03) Unknown simvastatin Allergy (Verified 10/19/17 11:03) Unknown Home Medications: Ambulatory Orders Medication Instructions Recorded Atenolol [Tenormin (beta theron)] 100 mg PO DAILY 08/09/16 Atorvastatin Calcium [Lipitor] 80 mg PO QHS 08/09/16 Finasteride [Proscar] 5 mg PO DAILY 08/09/16 Furosemide [Lasix] 20 mg PO DAILY 08/09/16 Multivitamin with Minerals/Lut 1 tab PO DAILY 08/09/16 [Pub Multivitamin 50 Plus Tab] Pantoprazole Sodium [Protonix] 40 mg PO BID 08/09/16 Tamsulosin HCl [Flomax] 0.8 mg PO QHS 08/09/16 Clopidogrel Bisulfate [Clopidogrel] 75 mg PO DAILY 12/25/16 Alprostadil [Caverject] 20 mcg IC X1 PRN 02/22/17 Dextrose [Glucose] 4 gm PO X1 PRN 02/22/17 Ketoconazole 1 applicatio TOPICAL DAILY PRN PRN 02/22/17 Aspirin E.C. [Ecotrin] 81 mg PO DAILY@0800 09/01/17 Cholecalciferol (VIT D3) [Vitamin 3,000 unit PO DAILY 09/01/17 D3] Escitalopram Oxalate [Lexapro] 10 mg PO DAILY 09/01/17 Insulin Regular, Human [Humulin R See Protocol SQ TIDCM 09/01/17 U-500 Kwikpen] Ranolazine [Ranexa] 1,000 mg PO BID 09/01/17 Surgical History: angioplasty, coronary bypass surgery, pacemaker implantation, - - cabg,cholecystectemy, hernia, left knee, 4 stents Psychiatric History: No pertinent psych hx, - - possible conversion disorder anxiety Lives: Spouse/ Significant Other Smoking Status: Former smoker Tobacco Use: Cigarettes Alcohol: Occasional Drugs: None - *Family History Maternal History Items: Heart Disease Paternal History Items: Unknown Review of Systems Constitutional: Denies: Chills, Fever, Weight Change HEENT: Denies: Head Aches, Sinus Congestion, Sinus Drainage Cardiovascular: Denies: Chest Pain, Palpitations Respiratory: Denies: Cough, Shortness of breath at rest, Sputum production Gastrointestinal: Denies: Abdominal Pain, Nausea, Vomiting Genitourinary: Denies: Dysuria Musculoskeletal: Denies: Joint Pain, Joint Tenderness Skin: Denies: Rash, Wounds Neurological: Denies: Numbness, Tingling, Focal weakness Psychiatric: Denies: Anxiety, Depression, Homicidal Ideations, Suicidal Ideations Hematologic/ Lymphatic: Denies: Easy Bruising, Easy Bleeding Patient Problems: Active and Suspected Problems Left-sided weakness (Acute) - Physical Exam General: Alert, Oriented x3, Cooperative, No apparent distress Neurological: Cranial nerves II-XII grossly intact, Deep Tendon Reflexes 2+/4 and Symmetrical, Neuro grossly intact, Motor Exam 5/5 strength throughout, Slurred Speech Psych/Mental Status: Normal Affect Vital Signs Temp Pulse Resp BP Pulse Ox 36.4 C L 62 18 138/65 H 99 12/11/17 11:35 12/11/17 11:35 12/11/17 11:35 12/11/17 11:35 12/11/17 11:35 Oxygen Flow Rate (L/min) 2 Oxygen Delivery Method Nasal Cannula Weight: 113.4 kg Body Mass Index (BMI) 32.1 Finger Stick Blood Glucose 147 Intake and Output for Last 24 Hours 12/09/17 12/10/17 12/11/17 23:59 23:59 23:59 Intake Total 240 / 240 Output Total 750 / 750 Balance -510 / -510 Laboratory Tests Past 24 Hrs 12/10/17 12/10/17 12/10/17 17:03 17:03 17:03 WBC 5.5 RBC 3.96 L Hgb 13.1 Hct 38.9 L MCV 98.2 H MCH 33.1 H MCHC 33.7 RDW 13.3 RDW Differential 46.6 H Plt Count 130 L MPV 10.8 Immature Gran % (Auto) 0.200 Neut % (Auto) 69.6 Lymph % (Auto) 21.5 [place] % (Auto) 5.9 Eos % (Auto) 2.6 Baso % (Auto) 0.2 Absolute Neuts (auto) 3.8 Absolute Lymphs (auto) 1.17 Total Counted Not Reportable PT 13.4 INR 1.0 APTT 36.7 H Sodium 141 Potassium 3.7 Chloride 103 Carbon Dioxide 31.0 Anion Gap 7 BUN 15 Creatinine 0.91 Estim Creat Clear Calc 91.58 Est GFR (MDRD) Af Amer 107 Est GFR (MDRD) Non-Af 89 BUN/Creatinine Ratio 16.5 Glucose 160 H Hemoglobin A1c Calcium 8.3 L Troponin I 0.019 12/10/17 12/10/17 12/10/17 17:45 20:51 23:15 WBC RBC Hgb Hct MCV MCH MCHC RDW RDW Differential Plt Count MPV Immature Gran % (Auto) Neut % (Auto) Lymph % (Auto) [place] % (Auto) Eos % (Auto) Baso % (Auto) Absolute Neuts (auto) Absolute Lymphs (auto) Total Counted PT INR APTT Sodium Potassium Chloride Carbon Dioxide Anion Gap BUN Creatinine Estim Creat Clear Calc Est GFR (MDRD) Af Amer Est GFR (MDRD) Non-Af BUN/Creatinine Ratio Glucose Hemoglobin A1c 7.0 H Calcium Troponin I < 0.015 0.017 12/11/17 12/11/17 12/11/17 05:20 05:20 05:20 WBC 5.5 RBC 3.86 L Hgb 12.6 L Hct 37.8 L MCV 97.9 H MCH 32.6 H MCHC 33.3 RDW 13.4 RDW Differential 45.8 H Plt Count 123 L MPV 10.7 Immature Gran % (Auto) 0.200 Neut % (Auto) 64.4 Lymph % (Auto) 25.7 [place] % (Auto) 6.4 Eos % (Auto) 3.1 Baso % (Auto) 0.2 Absolute Neuts (auto) 3.5 Absolute Lymphs (auto) 1.41 Total Counted Not Reportable PT 14.6 INR 1.1 APTT 37.6 H Sodium 140 Potassium 3.5 Chloride 102 Carbon Dioxide 31.0 Anion Gap 7 BUN 18 Creatinine 0.84 Estim Creat Clear Calc 99.22 Est GFR (MDRD) Af Amer 118 Est GFR (MDRD) Non-Af 97 BUN/Creatinine Ratio 21.5 H Glucose 195 H Hemoglobin A1c Calcium 8.1 L Troponin I POC Glucose 12/11/17 12/11/17 12/10/17 11:56 06:42 21:22 POC Glucose 204 H 194 H 122 H 12/10/17 18:02 POC Glucose [address] REVIEWED, NO ACUTE Assessment/Plan All Active Problems Left-sided weakness (Acute) Unstable angina (Ruled-out) Hematuria (Resolved) Chest pain (Acute) NONphysiologic aphasia, recurrent, multiple despite keppra, no evidence cva, suspect stressors, [place] [facility]apro
[2017-12-11] MEDS: Pantoprazole Sodium 40 MG Tablet PO (13:26)
[2017-12-11] MEDS: Escitalopram Oxalate 10 MG Tablet PO (13:26)
[2017-12-11] MEDS: Finasteride 5 MG Tablet PO (13:26)
[2017-12-11] MEDS: Multivitamins,Ther W-Minerals Tablet 1 TABLET PO (13:27)
--- NOTE | 2017-12-11 14:36 | PCM.DC ---
- Discharge Diagnoses Current Active Problems: Current Active and Chronic Problems Left-sided weakness (Acute) You will use the following diet at home:: Cardiac Discharge Activity: Return to Normal Activity Call your doctor if you observe: Numbness or Tingling, Shortness of breath, Dizziness, Fainting spells, Chest pain Allergies/Adverse Reactions: Allergies ezetimibe Allergy (Verified 10/19/17 11:03) Unknown Fish Containing Products Allergy (Verified 10/19/17 11:03) Unknown glyburide Allergy (Verified 10/19/17 11:03) Unknown lisinopril Allergy (Verified 10/19/17 11:03) Unknown metoprolol Allergy (Verified 10/19/17 11:03) Unknown simvastatin Allergy (Verified 10/19/17 11:03) Unknown Medications to take at Discharge Atenolol [Tenormin (beta theron)] 100 mg PO DAILY 08/09/16 Atorvastatin Calcium [Lipitor] 80 mg PO QHS 08/09/16 Finasteride [Proscar] 5 mg PO DAILY 08/09/16 Furosemide [Lasix] 20 mg PO DAILY 08/09/16 Multivitamin with Minerals/Lut [Pub Multivitamin 50 Plus Tab] 1 tab PO DAILY 08/09/16 Pantoprazole Sodium [Protonix] 40 mg PO BID 08/09/16 Tamsulosin HCl [Flomax] 0.8 mg PO QHS 08/09/16 Clopidogrel Bisulfate [Clopidogrel] 75 mg PO DAILY 12/25/16 Alprostadil [Caverject] 20 mcg IC X1 PRN 02/22/17 Dextrose [Glucose] 4 gm PO X1 PRN 02/22/17 Ketoconazole 1 applicatio TOPICAL DAILY PRN PRN 02/22/17 Aspirin E.C. [Ecotrin] 81 mg PO DAILY@0800 09/01/17 Cholecalciferol (VIT D3) [Vitamin D3] 3,000 unit PO DAILY 09/01/17 Escitalopram Oxalate [Lexapro] 10 mg PO DAILY 09/01/17 Insulin Regular, Human [Humulin R U-500 Kwikpen] See Protocol SQ TIDCM 09/01/17 Ranolazine [Ranexa] 1,000 mg PO BID 09/01/17 Primary Care Physician: [facility] [Primary Care Provider] - Please follow up with your Primary Care Physician in: 1 Week Test Results: Test results from this visit will be discussed in further detail at your follow-up appointment, if applicable. Please Follow Up With: [place] Neurologist When: 1-2 Weeks Proposed Discharge Date: 12/11/17
--- NOTE | 2017-12-11 14:38 | PCM.DC.SUM ---
<Candice Stafford - Last Filed: 12/11/17 14:47> Discharge Date and Diagnosis Date of Admission: 12/10/17 Date of Discharge: 12/11/17 - Primary Discharge Diagnosis Active and Suspected Problems 1. Nonphysiologic aphasia, recurrent-CVA ruled out 2. Noncardiac chest pain-ACS ruled out. - Secondary Discharge Diagnosis Chronic Problems Hyperlipidemia (Chronic) Hypertension (Chronic) Obesity (Chronic) Pacemaker (Chronic) 2001 Weakness of limb (Chronic) Left-sided weakness, chronic Chronic respiratory failure (Chronic) baseline 3L continuously CAD (coronary artery disease) (Chronic) Cardiac catheterization 02/24/2017?normal LV size should not, EF 55%, [place] multivessel CAD, patent SVG to diagonal 1, OM 2, and RCA, MASON to LAD previously reported as atretic/nonfunctional (not reevaluated at that time), advised medical therapy DM type 2 (diabetes mellitus, type 2) (Chronic) History of smoking (Chronic) Obstructive sleep apnea (Chronic) Seizure (Chronic) left sided tingling left body (Chronic) S/P CABG (coronary artery bypass graft) (Chronic) S/P PTCA (percutaneous transluminal coronary angioplasty) (Chronic) CVA (cerebral vascular accident) (Chronic) Residual left-sided weakness Hospital Course and Treatment Imaging Results: Diagnostic Data Brain CT 12/10/17 17:27 IMPRESSION: 1. No acute process. 2. Stable microvascular ischemic changes and atrophy. Electronically Signed: Kim Mendoza MD at 18:03 EDT Tel , Service support , Chest X-Ray 12/10/17 17:45 IMPRESSION: No acute process. Electronically Signed: Kim Mendoza MD at 18:04 EDT Tel , Service support , Dr. Holt- Neurology Operations: None Procedures: - - Stress echo Summary of Care Provided: The patient is a 67 year old M who presented to the emergency room 12/10/2017 due to left-sided weakness, slurred speech and chest pain. He has a past medical history of hypertension, type 2 diabetes mellitus, hyperlipidemia, status post pacemaker, CAD status post CABG/PCI, EKATERINA, history of seizures, history of CVA with residual left-sided weakness. Troponin negative. Patient underwent a stress echo which showed EF 55%, negative for ischemia. ACS ruled out. Patient denies further chest pain. Neurology consulted due to recurrent slurred speech and chronic left-sided weakness. Brain CT showed no acute process. Patient has had multiple episodes of aphasia without physiologic cause. Has been on and off of Keppra in the past. [facility] No evidence of CVA. Patient can follow-up with [place] neurologist in 1-2 weeks for nonphysiologic aphasia. Continue home Lexapro regimen. Follow-up with primary care [place] physician in 1 week. General: Alert, Cooperative, No apparent distress HEENT: Atraumatic, PERRLA, EOMI, Normocephalic Oral: Moist Mucosa Neck: Supple, No JVD, Negative Carotid Bruits Lungs: Clear to auscultation, Normal air movement, No rhonchi, No wheeze Cardiovascular: Regular rate, Regular Rhythm, Normal S1, Normal S2, No murmurs Abdomen: Bowel Sounds Present, Soft, Non Tender, Obese Extremities: No clubbing, No cyanosis, No edema, Capillary Refill Less than 3 Seconds Skin: No rashes, No breakdown Musculoskeletal: No Tenderness to Palpation of Joints or Extremities Lymphatic: No Cervical, Supraclavicular, or Inguinal Adenopathy Neurological: Cranial nerves II-XII grossly intact, neuro grossly intact, chronic mild left-sided weakness Psych/Mental Status: Normal Affect, Appropriate Patient seen exam prior to discharge. Physical assessment as noted above. Patient is stable for discharge home with follow-up recommendations as noted above. This patient was seen by KELLY Dyson under the supervision of Dr. Strickland. - Physical Exam Vital Signs Temp Pulse Resp BP Pulse Ox 97.5 F L 62 18 138/65 H 99 12/11/17 11:35 12/11/17 11:35 12/11/17 11:35 12/11/17 11:35 12/11/17 11:35 Oxygen Flow Rate (L/min) 2 Oxygen Delivery Method Nasal Cannula Weight: 250 lb 0.067 oz Body Mass Index (BMI) 32.1 Finger Stick Blood Glucose 147 Intake and Output for Last 24 Hours 12/09/17 12/10/17 12/11/17 23:59 23:59 23:59 Intake Total 240 / 240 Output Total 750 / 750 Balance -510 / -510 Laboratory Tests Past 24 Hrs 12/10/17 12/10/17 12/10/17 17:03 17:03 17:03 WBC 5.5 RBC 3.96 L Hgb 13.1 Hct 38.9 L MCV 98.2 H MCH 33.1 H MCHC 33.7 RDW 13.3 RDW Differential 46.6 H Plt Count 130 L MPV 10.8 Immature Gran % (Auto) 0.200 Neut % (Auto) 69.6 Lymph % (Auto) 21.5 [place] % (Auto) 5.9 Eos % (Auto) 2.6 Baso % (Auto) 0.2 Absolute Neuts (auto) 3.8 Absolute Lymphs (auto) 1.17 Total Counted Not Reportable PT 13.4 INR 1.0 APTT 36.7 H Sodium 141 Potassium 3.7 Chloride 103 Carbon Dioxide 31.0 Anion Gap 7 BUN 15 Creatinine 0.91 Estim Creat Clear Calc 91.58 Est GFR (MDRD) Af Amer 107 Est GFR (MDRD) Non-Af 89 BUN/Creatinine Ratio 16.5 Glucose 160 H Hemoglobin A1c Calcium 8.3 L Troponin I 0.019 12/10/17 12/10/17 12/10/17 17:45 20:51 23:15 WBC RBC Hgb Hct MCV MCH MCHC RDW RDW Differential Plt Count MPV Immature Gran % (Auto) Neut % (Auto) Lymph % (Auto) [place] % (Auto) Eos % (Auto) Baso % (Auto) Absolute Neuts (auto) Absolute Lymphs (auto) Total Counted PT INR APTT Sodium Potassium Chloride Carbon Dioxide Anion Gap BUN Creatinine Estim Creat Clear Calc Est GFR (MDRD) Af Amer Est GFR (MDRD) Non-Af BUN/Creatinine Ratio Glucose Hemoglobin A1c 7.0 H Calcium Troponin I < 0.015 0.017 12/11/17 12/11/17 12/11/17 05:20 05:20 05:20 WBC 5.5 RBC 3.86 L Hgb 12.6 L Hct 37.8 L MCV 97.9 H MCH 32.6 H MCHC 33.3 RDW 13.4 RDW Differential 45.8 H Plt Count 123 L MPV 10.7 Immature Gran % (Auto) 0.200 Neut % (Auto) 64.4 Lymph % (Auto) 25.7 [place] % (Auto) 6.4 Eos % (Auto) 3.1 Baso % (Auto) 0.2 Absolute Neuts (auto) 3.5 Absolute Lymphs (auto) 1.41 Total Counted Not Reportable PT 14.6 INR 1.1 APTT 37.6 H Sodium 140 Potassium 3.5 Chloride 102 Carbon Dioxide 31.0 Anion Gap 7 BUN 18 Creatinine 0.84 Estim Creat Clear Calc 99.22 Est GFR (MDRD) Af Amer 118 Est GFR (MDRD) Non-Af 97 BUN/Creatinine Ratio 21.5 H Glucose 195 H Hemoglobin A1c Calcium 8.1 L Troponin I POC Glucose 12/11/17 12/11/17 12/10/17 11:56 06:42 21:22 POC Glucose 204 H 194 H 122 H 12/10/17 18:02 POC Glucose 147 H Discharge Diet: Low fat/ Low Cholesterol Discharge Activity: Return to Normal Activity Call your doctor if you observe: Numbness or Tingling, Shortness of breath, Dizziness, Fainting spells, Chest pain Home Medications: Medications to take at Discharge Atenolol [Tenormin (beta theron)] 100 mg PO DAILY 08/09/16 Atorvastatin Calcium [Lipitor] 80 mg PO QHS 08/09/16 Finasteride [Proscar] 5 mg PO DAILY 08/09/16 Furosemide [Lasix] 20 mg PO DAILY 08/09/16 Multivitamin with Minerals/Lut [Pub Multivitamin 50 Plus Tab] 1 tab PO DAILY 08/09/16 Pantoprazole Sodium [Protonix] 40 mg PO BID 08/09/16 Tamsulosin HCl [Flomax] 0.8 mg PO QHS 08/09/16 Clopidogrel Bisulfate [Clopidogrel] 75 mg PO DAILY 12/25/16 Alprostadil [Caverject] 20 mcg IC X1 PRN 02/22/17 Dextrose [Glucose] 4 gm PO X1 PRN 02/22/17 Ketoconazole 1 applicatio TOPICAL DAILY PRN PRN 02/22/17 Aspirin E.C. [Ecotrin] 81 mg PO DAILY@0800 09/01/17 Cholecalciferol (VIT D3) [Vitamin D3] 3,000 unit PO DAILY 09/01/17 Escitalopram Oxalate [Lexapro] 10 mg PO DAILY 09/01/17 Insulin Regular, Human [Humulin R U-500 Kwikpen] See Protocol SQ TIDCM 09/01/17 Ranolazine [Ranexa] 1,000 mg PO BID 09/01/17 [facility] [[facility] - Please follow up with your Primary Care Physician in: 1 Week Please Follow Up With: [place] Neurologist When: 1-2 Weeks Disposition: Home Minutes spent on discharge:: 35 Patient Condition:: Stable Medical Necessity - Tobacco Use Smoking Status: Former smoker Tobacco Use: Cigarettes Meaningful Use Info Meaningful Use Diagnoses (Choose all that apply): None applicable <Víctor Strickland - Last Filed: 12/11/17 17:25> Discharge Date and Diagnosis - Secondary Discharge Diagnosis Chronic Problems Hyperlipidemia (Chronic) Hypertension (Chronic) Obesity (Chronic) Pacemaker (Chronic) 2001 Weakness of limb (Chronic) Left-sided weakness, chronic Chronic respiratory failure (Chronic) baseline 3L continuously CAD (coronary artery disease) (Chronic) Cardiac catheterization 02/24/2017?normal LV size should not, EF 55%, [place] multivessel CAD, patent SVG to diagonal 1, OM 2, and RCA, MASON to LAD previously reported as atretic/nonfunctional (not reevaluated at that time), advised medical therapy DM type 2 (diabetes mellitus, type 2) (Chronic) History of smoking (Chronic) Obstructive sleep apnea (Chronic) Seizure (Chronic) left sided tingling left body (Chronic) S/P CABG (coronary artery bypass graft) (Chronic) S/P PTCA (percutaneous transluminal coronary angioplasty) (Chronic) CVA (cerebral vascular accident) (Chronic) Residual left-sided weakness Hospital Course and Treatment Summary of Care Provided: The patient is a 67 year old M [] - Physical Exam Vital Signs Temp Pulse Resp BP Pulse Ox 97.5 F L 62 18 138/65 H 99 12/11/17 11:35 12/11/17 11:35 12/11/17 11:35 12/11/17 11:35 12/11/17 11:35 Oxygen Flow Rate (L/min) 2 Oxygen Delivery Method Nasal Cannula Weight: 250 lb 0.067 oz Body Mass Index (BMI) 32.1 Finger Stick Blood Glucose 147 Intake and Output for Last 24 Hours 12/09/17 12/10/1712/11/18 23:59 23:59 23:59 Intake Total 240 / 240 Output Total 750 / 750 Balance -510 / -510 Laboratory Tests Past 24 Hrs 12/10/17 12/10/17 12/10/17 17:03 17:03 17:03 WBC 5.5 RBC 3.96 L Hgb 13.1 Hct 38.9 L MCV 98.2 H MCH 33.1 H MCHC 33.7 RDW 13.3 RDW Differential 46.6 H Plt Count 130 L MPV 10.8 Immature Gran % (Auto) 0.200 Neut % (Auto) 69.6 Lymph % (Auto) 21.5 [place] % (Auto) 5.9 Eos % (Auto) 2.6 Baso % (Auto) 0.2 Absolute Neuts (auto) 3.8 Absolute Lymphs (auto) 1.17 Total Counted Not Reportable PT 13.4 INR 1.0 APTT 36.7 H Sodium 141 Potassium 3.7 Chloride 103 Carbon Dioxide 31.0 Anion Gap 7 BUN 15 Creatinine 0.91 Estim Creat Clear Calc 91.58 Est GFR (MDRD) Af Amer 107 Est GFR (MDRD) Non-Af 89 BUN/Creatinine Ratio 16.5 Glucose 160 H Hemoglobin A1c Calcium 8.3 L Troponin I 0.019 12/10/17 12/10/17 12/10/17 17:45 20:51 23:15 WBC RBC Hgb Hct MCV MCH MCHC RDW RDW Differential Plt Count MPV Immature Gran % (Auto) Neut % (Auto) Lymph % (Auto) [place] % (Auto) Eos % (Auto) Baso % (Auto) Absolute Neuts (auto) Absolute Lymphs (auto) Total Counted PT INR APTT Sodium Potassium Chloride Carbon Dioxide Anion Gap BUN Creatinine Estim Creat Clear Calc Est GFR (MDRD) Af Amer Est GFR (MDRD) Non-Af BUN/Creatinine Ratio Glucose Hemoglobin A1c 7.0 H Calcium Troponin I < 0.015 0.017 12/11/17 12/11/17 12/11/17 05:20 05:20 05:20 WBC 5.5 RBC 3.86 L Hgb 12.6 L Hct 37.8 L MCV 97.9 H MCH 32.6 H MCHC 33.3 RDW 13.4 RDW Differential 45.8 H Plt Count 123 L MPV 10.7 Immature Gran % (Auto) 0.200 Neut % (Auto) 64.4 Lymph % (Auto) 25.7 [place] % (Auto) 6.4 Eos % (Auto) 3.1 Baso % (Auto) 0.2 Absolute Neuts (auto) 3.5 Absolute Lymphs (auto) 1.41 Total Counted Not Reportable PT 14.6 INR 1.1 APTT 37.6 H Sodium 140 Potassium 3.5 Chloride 102 Carbon Dioxide 31.0 Anion Gap 7 BUN 18 Creatinine 0.84 Estim Creat Clear Calc 99.22 Est GFR (MDRD) Af Amer 118 Est GFR (MDRD) Non-Af 97 BUN/Creatinine Ratio 21.5 H Glucose 195 H Hemoglobin A1c Calcium 8.1 L Troponin I POC Glucose 12/11/17 12/11/17 12/10/17 11:56 06:42 21:22 POC Glucose 204 H 194 H 122 H 12/10/17 18:02 POC Glucose 147 H Code Visit Addendum: Dr. Strickland I personally examined the patient and reviewed the chart. I agree with the above. 67-year-old male with a past medical history consisting of hyperlipidemia, hypertension, obesity, pacemaker, coronary artery disease status post CABG, type 2 diabetes, EKATERINA, CVA presenting with left-sided weakness which is chronic for him as well as chest pain which is also common for him. He had a paced rhythm on EKG as well as a troponin that initially was 0.019 and decreased to 0.017. He had a an exercise stress echo that had a normal EF with no hypokinesis, no EKG changes, no anginal symptoms. He was also followed by neurology who noted that his left-sided weakness was chronic and since he has a pacemaker he is unable to obtain a MRI. Neurology felt that he was safe for discharge home and to [facility]. OBSV E&M: [id number] Observation care discharge
--- NOTE | 2017-12-11 14:47 | DS.PCM_ITS ---
<Candice Stafford - Last Filed: 12/11/17 14:47> Discharge Date and Diagnosis Date of Admission: 12/10/17 Date of Discharge: 12/11/17 - Primary Discharge Diagnosis Active and Suspected Problems 1. Nonphysiologic aphasia, recurrent-CVA ruled out 2. Noncardiac chest pain-ACS ruled out. - Secondary Discharge Diagnosis Chronic Problems Hyperlipidemia (Chronic) Hypertension (Chronic) Obesity (Chronic) Pacemaker (Chronic) 2001 Weakness of limb (Chronic) Left-sided weakness, chronic Chronic respiratory failure (Chronic) baseline 3L continuously CAD (coronary artery disease) (Chronic) Cardiac catheterization 02/24/2017?normal LV size should not, EF 55%, [place] multivessel CAD, patent SVG to diagonal 1, OM 2, and RCA, MASON to LAD previously reported as atretic/nonfunctional (not reevaluated at that time), advised medical therapy DM type 2 (diabetes mellitus, type 2) (Chronic) History of smoking (Chronic) Obstructive sleep apnea (Chronic) Seizure (Chronic) left sided tingling left body (Chronic) S/P CABG (coronary artery bypass graft) (Chronic) S/P PTCA (percutaneous transluminal coronary angioplasty) (Chronic) CVA (cerebral vascular accident) (Chronic) Residual left-sided weakness Hospital Course and Treatment Imaging Results: Diagnostic Data Brain CT 12/10/17 17:27 IMPRESSION: 1. No acute process. 2. Stable microvascular ischemic changes and atrophy. Electronically Signed: Kim Mendoza MD at 18:03 EDT Tel , Service support , Chest X-Ray 12/10/17 17:45 IMPRESSION: No acute process. Electronically Signed: Kim Mendoza MD at 18:04 EDT Tel , Service support , Dr. Holt- Neurology Operations: None Procedures: - - Stress echo Summary of Care Provided: The patient is a 67 year old M who presented to the emergency room 12/10/2017 due to left-sided weakness, slurred speech and chest pain. He has a past medical history of hypertension, type 2 diabetes mellitus, hyperlipidemia, status post pacemaker, CAD status post CABG/PCI, EKATERINA, history of seizures, history of CVA with residual left-sided weakness. Troponin negative. Patient underwent a stress echo which showed EF 55%, negative for ischemia. ACS ruled out. Patient denies further chest pain. Neurology consulted due to recurrent slurred speech and chronic left-sided weakness. Brain CT showed no acute pr ocess. Patient has had multiple episodes of aphasia without physiologic cause. Has been on and off of Keppra in the past. [facility] No evidence of CVA. Patient can follow-up with [place] neurologist in 1-2 weeks for nonphysiologic aphasia. Continue home Lexapro regimen. Follow-up with primary care [place] physician in 1 week. General: Alert, Cooperative, No apparent distress HEENT: Atraumatic, PERRLA, EOMI, Normocephalic Oral: Moist Mucosa Neck: Supple, No JVD, Negative Carotid Bruits Lungs: Clear to auscultation, Normal air movement, No rhonchi, No wheeze Cardiovascular: Regular rate, Regular Rhythm, Normal S1, Normal S2, No murmurs Abdomen: Bowel Sounds Present, Soft, Non Tender, Obese Extremities: No clubbing, No cyanosis, No edema, Capillary Refill Less than 3 Seconds Skin: No rashes, No breakdown Musculoskeletal: No Tenderness to Palpation of Joints or Extremities Lymphatic: No Cervical, Supraclavicular, or Inguinal Adenopathy Neurological: Cranial nerves II-XII grossly intact, neuro grossly intact, chronic mild left-sided weakness Psych/Mental Status: Normal Affect, Appropriate Patient seen exam prior to discharge. Physical assessment as noted above. Patient is stable for discharge home with follow-up recommendations as noted above. This patient was seen by KELLY Dyson under the supervision of Dr. Strickland. - Physical Exam Vital Signs Temp Pulse Resp BP Pulse Ox 97.5 F L 62 18 138/65 H 99 12/11/17 11:35 12/11/17 11:35 12/11/17 11:35 12/11/17 11:35 12/11/17 11:35 Oxygen Flow Rate (L/min) 2 Oxygen Delivery Method Nasal Cannula Weight: 250 lb 0.067 oz Body Mass Index (BMI) 32.1 Finger Stick Blood Glucose 147 Intake and Output for Last 24 Hours 12/09/17 12/10/1712/11/18 23:59 23:59 23:59 Intake Total 240 / 240 Output Total 750 / 750 Balance -510 / -510 Laboratory Tests Past 24 Hrs 12/10/17 12/10/17 12/10/17 17:03 17:03 17:03 WBC 5.5 RBC 3.96 L Hgb 13.1 Hct 38.9 L MCV 98.2 H MCH 33.1 H MCHC 33.7 RDW 13.3 RDW Differential 46.6 H Plt Count 130 L MPV 10.8 Immature Gran % (Auto) 0.200 Neut % (Auto) 69.6 Lymph % (Auto) 21.5 Beckham % (Auto) 5.9 Eos % (Auto) 2.6 Baso % (Auto) 0.2 Absolute Neuts (auto) 3.8 Absolute Lymphs (auto) 1.17 Total Counted Not Reportable PT 13.4 INR 1.0 APTT 36.7 H Sodium 141 Potassium 3.7 Chloride 103 Carbon Dioxide 31.0 Anion Gap 7 BUN 15 Creatinine 0.91 Estim Creat Clear Calc 91.58 Est GFR (MDRD) Af Amer 107 Est GFR (MDRD) Non-Af 89 BUN/Creatinine Ratio 16.5 Glucose 160 H Hemoglobin A1c Calcium 8.3 L Troponin I 0.019 12/10/17 12/10/17 12/10/17 17:45 20:51 23:15 WBC RBC Hgb Hct MCV MCH MCHC RDW RDW Differential Plt Count MPV Immature Gran % (Auto) Neut % (Auto) Lymph % (Auto) Beckham % (Auto) Eos % (Auto) Baso % (Auto) Absolute Neuts (auto) Absolute Lymphs (auto) Total Counted PT INR APTT Sodium Potassium Chloride Carbon Dioxide Anion Gap BUN Creatinine Estim Creat Clear Calc Est GFR (MDRD) Af Amer Est GFR (MDRD) Non-Af BUN/Creatinine Ratio Glucose Hemoglobin A1c 7.0 H Calcium Troponin I < 0.015 0.017 12/11/17 12/11/17 12/11/17 05:20 05:20 05:20 WBC 5.5 RBC 3.86 L Hgb 12.6 L Hct 37.8 L MCV 97.9 H MCH 32.6 H MCHC 33.3 RDW 13.4 RDW Differential 45.8 H Plt Count 123 L MPV 10.7 Immature Gran % (Auto) 0.200 Neut % (Auto) 64.4 Lymph % (Auto) 25.7 Beckham % (Auto) 6.4 Eos % (Auto) 3.1 Baso % (Auto) 0.2 Absolute Neuts (auto) 3.5 Absolute Lymphs (auto) 1.41 Total Counted Not Reportable PT 14.6 INR 1.1 APTT 37.6 H Sodium 140 Potassium 3.5 Chloride 102 Carbon Dioxide 31.0 Anion Gap 7 BUN 18 Creatinine 0.84 Estim Creat Clear Calc 99.22 Est GFR (MDRD) Af Amer 118 Est GFR (MDRD) Non-Af 97 BUN/Creatinine Ratio 21.5 H Glucose 195 H Hemoglobin A1c Calcium 8.1 L Troponin I POC Glucose 12/11/17 12/11/17 12/10/17 11:56 06:42 21:22 POC Glucose 204 H 194 H 122 H 12/10/17 18:02 POC Glucose 147 H Discharge Diet: Low fat/ Low Cholesterol Discharge Activity: Return to Normal Activity Call your doctor if you observe: Numbness or Tingling, Shortness of breath, Dizziness, Fainting spells, Chest pain Home Medications: Medications to take at Discharge Atenolol [Tenormin (beta theron)] 100 mg PO DAILY 08/09/16 Atorvastatin Calcium [Lipitor] 80 mg PO QHS 08/09/16 Finasteride [Proscar] 5 mg PO DAILY 08/09/16 Furosemide [Lasix] 20 mg PO DAILY 08/09/16 Multivitamin with Minerals/Lut [Pub Multivitamin 50 Plus Tab] 1 tab PO DAILY 08/09/16 Pantoprazole Sodium [Protonix] 40 mg PO BID 08/09/16 Tamsulosin HCl [Flomax] 0.8 mg PO QHS 08/09/16 Clopidogrel Bisulfate [Clopidogrel] 75 mg PO DAILY 12/25/16 Alprostadil [Caverject] 20 mcg IC X1 PRN 02/22/17 Dextrose [Glucose] 4 gm PO X1 PRN 02/22/17 Ketoconazole 1 applicatio TOPICAL DAILY PRN PRN 02/22/17 Aspirin E.C. [Ecotrin] 81 mg PO DAILY@0800 09/01/17 Cholecalciferol (VIT D3) [Vitamin D3] 3,000 unit PO DAILY 09/01/17 Escitalopram Oxalate [Lexapro] 10 mg PO DAILY 09/01/17 Insulin Regular, Human [Humulin R U-500 Kwikpen] See Protocol SQ TIDCM 09/01/17 Ranolazine [Ranexa] 1,000 mg PO BID 09/01/17 [facility] [[facility] - Please follow up with your Primary Care Physician in: 1 Week Please Follow Up With: [place] Neurologist When: 1-2 Weeks Disposition: Home Minutes spent on discharge:: 35 Patient Condition:: Stable Medical Necessity - Tobacco Use Smoking Status: Former smoker Tobacco Use: Cigarettes Meaningful Use Info Meaningful Use Diagnoses (Choose all that apply): None applicable <Víctor Strickland - Last Filed: 12/11/17 17:25> Discharge Date and Diagnosis - Secondary Discharge Diagnosis Chronic Problems Hyperlipidemia (Chronic) Hypertension (Chronic) Obesity (Chronic) Pacemaker (Chronic) 2001 Weakness of limb (Chronic) Left-sided weakness, chronic Chronic respiratory failure (Chronic) baseline 3L continuously CAD (coronary artery disease) (Chronic) Cardiac catheterization 02/24/2017?normal LV size should not, EF 55%, [place] multivessel CAD, patent SVG to diagonal 1, OM 2, and RCA, MASON to LAD previously reported as atretic/nonfunctional (not reevaluated at that time), advised medical therapy DM type 2 (diabetes mellitus, type 2) (Chronic) History of smoking (Chronic) Obstructive sleep apnea (Chronic) Seizure (Chronic) left sided tingling left body (Chronic) S/P CABG (coronary artery bypass graft) (Chronic) S/P PTCA (percutaneous transluminal coronary angioplasty) (Chronic) CVA (cerebral vascular accident) (Chronic) Residual left-sided weakness Hospital Course and Treatment Summary of Care Provided: The patient is a 67 year old M [] - Physical Exam Vital Signs Temp Pulse Resp BP Pulse Ox 97.5 F L 62 18 138/65 H 99 12/11/17 11:35 12/11/17 11:35 12/11/17 11:35 12/11/17 11:35 12/11/17 11:35 Oxygen Flow Rate (L/min) 2 Oxygen Delivery Method Nasal Cannula Weight: 250 lb 0.067 oz Body Mass Index (BMI) 32.1 Finger Stick Blood Glucose 147 Intake and Output for Last 24 Hours 1012/10/17 12/11/17 23:59 23:59 23:59 Intake Total 240 / 240 Output Total 750 / 750 Balance -510 / -510 Laboratory Tests Past 24 Hrs 12/10/17 12/10/17 12/10/17 17:03 17:03 17:03 WBC 5.5 RBC 3.96 L Hgb 13.1 Hct 38.9 L MCV 98.2 H MCH 33.1 H MCHC 33.7 RDW 13.3 RDW Differential 46.6 H Plt Count 130 L MPV 10.8 Immature Gran % (Auto) 0.200 Neut % (Auto) 69.6 Lymph % (Auto) 21.5 Beckham % (Auto) 5.9 Eos % (Auto) 2.6 Baso % (Auto) 0.2 Absolute Neuts (auto) 3.8 Absolute Lymphs (auto) 1.17 Total Counted Not Reportable PT 13.4 INR 1.0 APTT 36.7 H Sodium 141 Potassium 3.7 Chloride 103 Carbon Dioxide 31.0 Anion Gap 7 BUN 15 Creatinine 0.91 Estim Creat Clear Calc 91.58 Est GFR (MDRD) Af Amer 107 Est GFR (MDRD) Non-Af 89 BUN/Creatinine Ratio 16.5 Glucose 160 H Hemoglobin A1c Calcium 8.3 L Troponin I 0.019 12/10/17 12/10/17 12/10/17 17:45 20:51 23:15 WBC RBC Hgb Hct MCV MCH MCHC RDW RDW Differential Plt Count MPV Immature Gran % (Auto) Neut % (Auto) Lymph % (Auto) Beckham % (Auto) Eos % (Auto) Baso % (Auto) Absolute Neuts (auto) Absolute Lymphs (auto) Total Counted PT INR APTT Sodium Potassium Chloride Carbon Dioxide Anion Gap BUN Creatinine Estim Creat Clear Calc Est GFR (MDRD) Af Amer Est GFR (MDRD) Non-Af BUN/Creatinine Ratio Glucose Hemoglobin A1c 7.0 H Calcium Troponin I < 0.015 0.017 12/11/17 12/11/17 12/11/17 05:20 05:20 05:20 WBC 5.5 RBC 3.86 L Hgb 12.6 L Hct 37.8 L MCV 97.9 H MCH 32.6 H MCHC 33.3 RDW 13.4 RDW Differential 45.8 H Plt Count 123 L MPV 10.7 Immature Gran % (Auto) 0.200 Neut % (Auto) 64.4 Lymph % (Auto) 25.7 Beckham % (Auto) 6.4 Eos % (Auto) 3.1 Baso % (Auto) 0.2 Absolute Neuts (auto) 3.5 Absolute Lymphs (auto) 1.41 Total Counted Not Reportable PT 14.6 INR 1.1 APTT 37.6 H Sodium 140 Potassium 3.5 Chloride 102 Carbon Dioxide 31.0 Anion Gap 7 BUN 18 Creatinine 0.84 Estim Creat Clear Calc 99.22 Est GFR (MDRD) Af Amer 118 Est GFR (MDRD) Non-Af 97 BUN/Creatinine Ratio 21.5 H Glucose 195 H Hemoglobin A1c Calcium 8.1 L Troponin I POC Glucose 12/11/17 12/11/17 12/10/17 11:56 06:42 21:22 POC Glucose 204 H 194 H 122 H 12/10/17 18:02 POC Glucose 147 H Code Visit Addendum: Dr. Strickland I personally examined the patient and reviewed the chart. I agree with the above. 67-year-old male with a past medical history consisting of hyperlipidemia, hypertension, obesity, pacemaker, coronary artery disease status post CABG, type 2 diabetes, EKATERINA, CVA presenting with left-sided weakness which is chronic for him as well as chest pain which is also common for him. He had a paced rhythm on EKG as well as a troponin that initially was 0.019 and dec reased to 0.017. He had a an exercise stress echo that had a normal EF with no hypokinesis, no EKG changes, no anginal symptoms. He was also followed by neurology who noted that his left-sided weakness was chronic and since he has a pacemaker he is unable to obtain a MRI. Neurology felt that he was safe for discharge home and to [facility]. OBSV E&M: 45409 Observation care discharge
== END 2017-12-11 14:37 | disposition home or self-care (01) ==
LOC: ED 18:50 → PCU 19:00
PROVIDERS: Admitting Provider Student in an Organized Health Care Education/Training Program; Emergency Provider Emergency Medicine; Visit Provider Family Medicine
DX: R47.01 Aphasia (principal); R07.89 Other chest pain; R53.1 Weakness; R29.707 NIHSS score 7; R06.00 Dyspnea, unspecified; R20.0 Anesthesia of skin; I10 Essential (primary) hypertension; E11.9 Type 2 diabetes mellitus without complications; R47.81 Slurred speech; E66.9 Obesity, unspecified; E78.5 Hyperlipidemia, unspecified; J96.10 Chronic respiratory failure, unspecified whether with hypoxia or hypercapnia; G47.33 Obstructive sleep apnea (adult) (pediatric); I25.10 Atherosclerotic heart disease of native coronary artery without angina pectoris; Z95.1 Presence of aortocoronary bypass graft; Z68.32 Body mass index [BMI] 32.0-32.9, adult; Z71.3 Dietary counseling and surveillance; Z95.0 Presence of cardiac pacemaker; Z87.891 Personal history of nicotine dependence; Z99.81 Dependence on supplemental oxygen; Z79.899 Other long term (current) drug therapy; Z79.82 Long term (current) use of aspirin; Z79.4 Long term (current) use of insulin; G40.909 Epilepsy, unspecified, not intractable, without status epilepticus; N40.0 Benign prostatic hyperplasia without lower urinary tract symptoms; R47.1 Dysarthria and anarthria
CPT/HCPCS: 36415; 70450; 71045; 80048; 82962; 83036; 84484; 85025; 85610; 85730; 93005; 93017; 93350; 93880; 96374; 96375; 96376; 97162; 97165; 99218; 99285; J7030; Q9957; A4216; C8928; G0378; G8978; G8979; G8987; G8988

== ENCOUNTER 2018-02-26 14:58 | Emergency (ER) | payer OTHER, SELFPAY ==
[2018-02-26 15:00] VITALS: PULSE 65; RESP 20; TEMP 36.2; O2SAT 98
--- NOTE | 2018-02-26 15:22 | EKG12_ITS ---
Test Reason : NEURO Blood Pressure : / mmHG Vent. Rate : 061 BPM Atrial Rate : 061 BPM P-R Int : 246 ms QRS Dur : 120 ms QT Int : 352 ms P-R-T Axes : 000 -44 098 degrees QTc Int : 354 ms Atrial-paced rhythm with prolonged AV conduction Left axis deviation Non-specific intra-ventricular conduction delay Nonspecific ST and T wave abnormality Abnormal ECG Confirmed by PADILLA GUALLPA, CALI ([id number]), editorial clerk MODESTA FISHMAN ([id number]) on 03/02/2018 5:01:44 PM Referred By: CLAUDY Confirmed By:CALI CAUSEY MD
--- NOTE | 2018-02-26 15:22 | RAD_ITS ---
STUDY: X-RAY CHEST REASON FOR EXAM: Male, 67 years old. Numbness, weakness and chest discomfort. TECHNIQUE: Single AP portable view of the chest. Apical lordotic COMPARISON: Prior chest radiograph of December 10, 2017. FINDINGS: Apical lordotic projection and rotated to the left. The lung flores are well-expanded without new consolidation, focal atelectasis or a substantial pleural effusion. Pleural pericardial scarring of the left heart border status post prior midline sternotomy. Stable cardiac size. Right atrial and right ventricular pacemaker leads remain in good position. Normal visualized pulmonary arteries. Normal visualized thoracic spine. Normal visualized ribs, clavicles, and shoulders. There is no demonstrated abnormality of the visualized soft tissue structures of the upper abdomen. RAD/Chest 1 View IMPRESSION: Lungs are well expanded without new consolidation, focal atelectasis or a substantial pleural effusion. Pleural pericardial scarring of the left heart border status post prior midline sternotomy. Stable cardiac size. ICD unchanged. Electronically Signed: Josie Murray MD at 16:11 EST , Service support ,
--- NOTE | 2018-02-26 15:22 | CT_ITS ---
STUDY: CT BRAIN WITHOUT CONTRAST REASON FOR EXAM: Male, 67 years old. Left-sided numbness and weakness with slurred speech. Ear infection. RADIATION DOSAGE (If Supplied By Facility): CTDIvol = ( 60.81 ) mGy, DLP = ( 1112.69 ) mGycm TECHNIQUE: Transaxial CT imaging of the brain was performed without administration of intravenous contrast material. Individualized dose optimization techniques were used for this CT. COMPARISON: Prior head CT of December 10, 2017 FINDINGS: Normal soft tissue structures. Normal calvarium. There is mild cerebral atrophy with widening of the extra-axial spaces and ventricular dilatation. There are areas of decreased attenuation within the white matter tracts of the supratentorial brain, consistent with microvascular disease changes. Normal basal ganglia and thalami. Normal brainstem. Normal cerebellum. There is no intracranial hemorrhage. There are no findings of an acute ischemic infarction. Normal visualized paranasal sinuses. Multiple opacified air cells of the inferior right mastoid process without opacification of the mastoid antrum or gross fluid or mucosal thickening of the middle ears. CT/Brain/Head without Contrast IMPRESSION: No acute intracranial findings. Negative for hemorrhage, hematoma or demarcation of a new nonhemorrhagic infarct zone. Mild involutional changes stable from the prior exam. Multiple opacified air cells of the inferior right mastoid process without opacification of the mastoid antrum or gross fluid or mucosal opacification of the middle ear. This is a new finding from the prior exam. Electronically Signed: Josie Murray MD at 16:09 EST , Service support ,
--- NOTE | 2018-02-26 15:27 | ED.VISSUMM ---
- ER Visit Summary Date of Service: 02/26/18 Chief Complaint: Intermittent left-sided weakness, slurred speech spells History of Present Illness: The patient is a 67 M who presents with the above symptoms. states that for the past week he has had intermittent episodes of left-sided weakness and slurred speech. He also describes a headache associated with this. They come at random times. He also admits to some chest pain. Denies shortness of breath. He is currently on antibiotics for right-sided ear infection. He does admit to some hematuria as well. I reviewed the patient's chart and he has been admitted at least 3 times over the past year for the same thing. Each has been documented that there is no cause for this found. There was concern for a psychological cause that he has [facility]. He has had multiple CAT scans of the head, CTA's, echocardiograms and stress test which all have revealed nothing acute. At one point he refused to go to a [facility] or have home health assist him. Physical Examination: Vital signs reviewed. HEENT exam unremarkable. Heart is regular rate and rhythm without murmurs. Lungs are clear to auscultation. Abdomen is soft with suprapubic tenderness to palpation. Extremities reveal 1+ symmetric edema. Skin exam normal. Neurologic exam shows an NIH of 1. Initially he was able to move his left arm but then he acted like he could not move it. His left leg did have some slight weakness. Test Results: EKG is paced with a rate of 61. Nonspecific ST and T wave changes noted. CAT scan of the head reveals opacified right mastoid but no other acute findings. Chest x-ray reveals chronic changes. Laboratory studies show potassium 3.3. There are 0-5 red blood cells in the urine. Emergency Department Course and Treatment: The patient has intermittent weakness on the left side. He has been admitted multiple times for this without any diagnosis. There is a documented diagnosis of conversion disorder. When I did the physical exam he moved his left arm but then he acted like he could not move it again. My spontaneously talk with him he is moving it spontaneously as well as the left leg. At this point I do not feel it is a stroke or TIA. I do not have any acute cause for the patient to be admitted at this time. He is already on antibiotics for this right-sided ear infection. He will continue those until he is finished. He will need to [facility] Treatment Plan: [] Disposition: Discharge Impression: Intermittent left-sided weakness, reported hematuria This note was generated with medineering dictation software. It may contain incorrect words, spelling, and punctuation that were not noted in review of the chart prior to signing ED Disposition - Plan for ED Patient: Chief Complaint: Neuro S/Sx [facility]: [facility] [Primary Care Provider] -
[2018-02-26 15:28] VITALS: BP 236/115; PULSE 60; RESP 22; O2SAT 97; O2SAT 98
[2018-02-26 16:02] LABS: Absolute Lymphocyte Count 1.43 X10^3/ul (0.83-4.51); Absolute Neutrophil Count 3.3 X10^3/uL (2.0-7.7); Basophil# 0.01 X10^3/uL; Basophil% 0.2 % (0-1); Eosinophil# 0.11 X10^3/uL; Eosinophils% 2.1 % (0-5); Hematocrit 39.5 % (40-54); Hemoglobin 13.1 g/dl (13.0-16.5); Lymphocyte # 1.43 X10^3/ul (4.0); Lymphocyte % 27.4 % (19-41); Mean Corp Hgb Conc 33.2 g/gl (32-36); Mean Corpuscular Hgb 32.8 pg (27.0-32.0); Mean Platelet Vol. 10.6 fl (6.2-12.0); Monocyte# 0.39 X10^3/uL; Monocyte% 7.5 % (0-10); Neutrophil # 3.28 X10^3/uL (2.7-7.7); Neutrophil % 62.8 % (47-70); Platelet Count 131 K/mm3 (150-450); RBC Distribution Width CV 14.4 % (11.6-14.6); RBC Distribution Width SD 51.2 fl (35.1-43.9); Red Blood Count 3.99 M/mm3 (4.6-6.2); White Blood Count 5.2 K/mm3 (4.4-11.0)
[2018-02-26 16:06] LABS: Anion Gap 7 (5-15); BUN 11 mg/dL (7-18); BUN/Creat Ratio 16.4 RATIO (10-20); Calcium,Total 8.3 mg/dL (8.5-10.1); Chloride 107 mmol/L (98-107); Creatinine, Serum 0.67 mg/dL (0.70-1.30); EST Glomerular Filtration Rate 126 mL/min (>60); Est Glom Filt Rate - Afr Amer 152 mL/min (>60); Estimated Creatinine Clearance 120.95 ml/min; Glucose 81 mg/dL (74-106); POSITIVE COUNT NO; POSITIVE DIFFERENTIAL NO; POSITIVE MORPHOLOGY NO; Potassium 3.3 mmol/L (3.5-5.1); Sodium Level 143 mmol/L (136-145)
[2018-02-26 16:22] LABS: International Normalized Ratio 1.1; Prothrombin Time (Protime)PT. 14.5 SECONDS (11.7-14.9)
[2018-02-26 16:23] LABS: Partial Thromboplast Time 34.9 Seconds (24.1-36.2)
[2018-02-26 17:20] LABS: Bacteria 0 SEEN /hpf (None Seen); Mucous, Urine 0 SEEN /hpf (<or=2+); Squamous Epithelial Cells - UA 0 SEEN /hpf (0-5); White Blood Cells 0 SEEN /hpf (0-5)
[2018-02-26 17:21] VITALS: PULSE 62; RESP 17; O2SAT 97
[2018-02-26 17:22] LABS: Color, Urine Yellow (Yellow); Glucose, Dipstick 50 mg/dl (Normal); Ketone-Dipstick Negative (Negative); Leukocyte Esterase-Dipstick Negative /ul (Negative); Nitrite-Dipstick Negative (Negative); Occult Blood-Urine 50 /ul (Negative); Protein-Dipstick 15 mg/dl (Negative); Urine Bilirubin Dipstick Negative (Negative); Urine Clarity Clear (Clear); Urine Urobilinogen Normal (Normal)
[2018-02-26 17:29] LABS: Red Blood Cells-Urine 0-5 SEEN /hpf (0-5)
--- NOTE | 2018-02-26 17:36 | ED.DEP ---
ED Disposition - Plan for ED Patient: Disposition: Home or Assisted Living Chief Complaint: Neuro S/Sx Instructions: ED Weakness [facility] Referrals: [facility] [Primary Care Provider] -
[2018-02-26 18:03] VITALS: BP 163/116; PULSE 63
== END 2018-02-26 18:05 | disposition home or self-care (01) ==
PROVIDERS: Emergency Provider Emergency Medicine
DX: R53.1 Weakness (principal); R31.9 Hematuria, unspecified; R47.81 Slurred speech; I25.10 Atherosclerotic heart disease of native coronary artery without angina pectoris; I10 Essential (primary) hypertension; E78.00 Pure hypercholesterolemia, unspecified; E11.9 Type 2 diabetes mellitus without complications; Z95.1 Presence of aortocoronary bypass graft; Z86.73 Personal history of transient ischemic attack (TIA), and cerebral infarction without residual deficits
CPT/HCPCS: 70450; 71045; 80048; 81001; 84484; 85025; 85610; 85730; 93005; 99284; A4216

== ENCOUNTER 2018-05-04 19:00 | Emergency (ER) | payer OTHER, MEDICARE, SELFPAY ==
[2018-05-04 19:03] VITALS: BP 158/70; PULSE 61; RESP 20; TEMP 36.6; O2SAT 97; BMI 37.3
--- NOTE | 2018-05-04 19:09 | EKG12_ITS ---
Test Reason : CP Blood Pressure : / mmHG Vent. Rate : 066 BPM Atrial Rate : 066 BPM P-R Int : 182 ms QRS Dur : 118 ms QT Int : 424 ms P-R-T Axes : 077 -42 076 degrees QTc Int : 444 ms Normal sinus rhythm Left axis deviation Incomplete right bundle branch block Nonspecific ST abnormality Abnormal ECG Confirmed by PADILLA GUALLPA, CALI ([id number]), map editor NADINE FERRER ([id number]) on 05/05/2018 8:25:14 AM Referred By: LILLIE Confirmed By:CALI CAUSEY MD
--- NOTE | 2018-05-04 19:15 | RAD_ITS ---
STUDY: X-RAY CHEST REASON FOR EXAM: Male, 67 years old. Chest pain. TECHNIQUE: Single AP portable view of the chest. COMPARISON: February 26, 2018. FINDINGS: The lungs are well-expanded and free of infiltrate or mass. There is no demonstrated pleural abnormality. Sternal cerclage wires are present from a prior sternotomy. The heart is normal in size. Stable cardiac pacemaker. Normal mediastinum and cata. Normal visualized pulmonary arteries. Normal visualized aortic arch and descending thoracic aorta. The thoracic spine is obscured by the mediastinum. There is degenerative osteoarthritis of the bilateral shoulders. There is no demonstrated abnormality of the visualized soft tissue structures of the upper abdomen. RAD/Chest 1 View (Portable) IMPRESSION: Cardiac pacemaker and evidence of median sternotomy. There is no acute pulmonary disease. Electronically Signed: Henrry Baron DO at 21:05 EDT Tel [phone], Service support ,
[2018-05-04 19:27] LABS: Absolute Lymphocyte Count 1.31 X10^3/ul (0.83-4.51); Absolute Neutrophil Count 4.9 X10^3/uL (2.0-7.7); Basophil# 0.01 X10^3/uL; Basophil% 0.1 % (0-1); Eosinophil# 0.09 X10^3/uL; Eosinophils% 1.3 % (0-5); Hematocrit 39.5 % (40-54); Hemoglobin 13.1 g/dl (13.0-16.5); Lymphocyte # 1.31 X10^3/ul (4.0); Lymphocyte % 19.2 % (19-41); Mean Corp Hgb Conc 33.2 g/gl (32-36); Mean Corpuscular Hgb 33.2 pg (27.0-32.0); Mean Corpuscular Volume 100.3 fL (80-94); Mean Platelet Vol. 10.4 fl (6.2-12.0); Monocyte% 7.3 % (0-10); Platelet Count 145 K/mm3 (150-450); RBC Distribution Width SD 49.7 fl (35.1-43.9); Red Blood Count 3.94 M/mm3 (4.6-6.2); White Blood Count 6.8 K/mm3 (4.4-11.0)
[2018-05-04 19:45] LABS: POSITIVE COUNT NO; POSITIVE DIFFERENTIAL NO; POSITIVE MORPHOLOGY NO
[2018-05-04 20:01] VITALS: BP 142/66; PULSE 61; RESP 22; O2SAT 96
[2018-05-04 20:03] LABS: Anion Gap 6 (5-15); BUN 21 mg/dL (7-18); BUN/Creat Ratio 19.1 RATIO (10-20); Chloride 102 mmol/L (98-107); EST Glomerular Filtration Rate 71 mL/min (>60); Est Glom Filt Rate - Afr Amer 86 mL/min (>60); Estimated Creatinine Clearance 67.29 ml/min; Glucose 270 mg/dL (74-106); Potassium 3.7 mmol/L (3.5-5.1); Sodium Level 136 mmol/L (136-145)
[2018-05-04] MEDS: 0.9% Normal Saline 1,000 ML 15 ML IV (20:28)
[2018-05-04] MEDS: Morphine 4 MG/ML Syringe IV (20:28)
[2018-05-04] MEDS: Ondansetron 4 MG/2 ML Vial IV (20:28)
--- NOTE | 2018-05-04 20:44 | CT_ITS ---
STUDY: CTA CHEST REASON FOR EXAM: Male, 67 years old. Chest pain. Right arm pain. Lightheadedness. RADIATION DOSAGE (If Supplied By Facility): CTDIvol = ( 19.79 ) mGy, DLP = ( 534.71 ) mGycm TECHNIQUE: The examination was performed with the intravenous administration of Isovue 370 100ML IV. Post-processing of the angiographic images was performed, with multiplanar reformation and 3D reconstruction. Individualized dose optimization techniques were used for this CT. COMPARISON: Chest, May 04, 2018. CTA of the chest, September 17, 2017. FINDINGS: Normal enhancement of the main pulmonary artery and right and left pulmonary arteries. Normal enhancement of the bilateral peripheral pulmonary arteries. There is no demonstrated pulmonary embolism. Normal thoracic aorta and visualized great vessels. There is no demonstrated aortic dissection. Normal heart and pericardium. Sternal cerclage wires and vascular clips are present from a prior sternotomy and coronary artery bypass graft procedure (CABG). Normal mediastinum. Normal hilar regions. Normal visualized trachea and bronchi. The lungs are well expanded. Patchy infiltrate in the medial right lower lobe. The lungs are otherwise clear. Normal pleura. Normal chest wall structures. There are degenerative changes of thoracic spine. Hepatosplenomegaly. CT/CTA Chest W/WO Contrast IMPRESSION: 1. No evidence of pulmonary embolus. 2. No aortic dissection or aneurysm. 3. Patchy infiltrate in the medial right lower lobe. 4. Hepatosplenomegaly. Electronically Signed: Henrry Baron DO at 22:01 EDT Tel [phone], Service support ,
[2018-05-04 21:53] VITALS: BP 142/67; PULSE 84; RESP 13; O2SAT 93
--- NOTE | 2018-05-04 22:55 | ED.VISSUMM ---
- ER Visit Summary Date of Service: 05/04/18 Chief Complaint: Chest pain History of Present Illness: The patient is a 67 M with a 2-week history of intermittent right sided abdomen and chest pain. Patient states the pain feels it starts low in his right abdomen. It radiates up the right side of the abdomen and to his right chest, then across his chest to the left. He also complains of a mild headache. He has noted slight cough and increased shortness of breath. He has not noted fever. Past history is significant for CVA, coronary disease, SC, diabetes, hypertension, high cholesterol, seizure, cardiac stent and bypass surgery. He is on home oxygen. Physical Examination: Blood pressure is 150/70, temperature 98, heart rate 61, respiratory rate 20, pulse ox 97% on 2 L nasal cannula. Patient sitting upright in bed. He is in no acute distress. Heart is regular rate and rhythm. Lungs sounds are grossly clear. Abdomen is soft but distended. There is no focal tenderness. Active bowel sounds noted throughout. Lower extreme examination was 2+ edema bilaterally that is symmetric. Neuro exam reveals chronic left-sided weakness secondary to prior CVA. Test Results: EKG is sinus at 66 with no sign of acute ischemia. Portable chest x-ray shows cardiac pacemaker. No acute pulmonary disease noted. CBC is remarkable only for platelet count of 145,000. This is consistent with his prior values. Chemistry studies significant for glucose of 270. Troponin is less than 0.015. Patient did undergo CTA of the chest. This reveals no evidence of PE or dissection, but there is a patchy infiltrate noted in the medial right lower lobe. Emergency Department Course and Treatment: Patient was given a dose of morphine and Zofran here. He remained on his home oxygen. Test results were discussed with patient and at bedside. They do state the patient has had recent cough and worsening shortness of breath. He will be treated with a course of doxycycline, first dose given here. I did review the patient's last cardiac cath from February 2017. Treatment Plan: [] Disposition: Discharge Impression: Right lower lobe pneumonia This note was generated with [employer] dictation software. It may contain incorrect words, spelling, and punctuation that were not noted in review of the chart prior to signing ED Disposition - Plan for ED Patient: Disposition: Home or Assisted Living Instructions: ED Pneumonia Adult Prescriptions: Doxycycline 100 mg PO BID #20 capsule Referrals: [facility] [Primary Care Provider] - 1 Week
--- NOTE | 2018-05-04 22:55 | ED.DEP ---
ED Disposition - Plan for ED Patient: Disposition: Home or Assisted Living Instructions: ED Pneumonia Adult Prescriptions: Doxycycline 100 mg PO BID #20 capsule [facility] [[facility] - 1 Week
[2018-05-04 23:02] VITALS: BP 98/78; PULSE 64; RESP 21; O2SAT 94
[2018-05-04] MEDS: Doxycycline 100 MG CAPSULE PO (23:04)
== END 2018-05-04 23:05 | disposition home or self-care (01) ==
PROVIDERS: Emergency Provider Emergency Medicine
DX: J18.9 Pneumonia, unspecified organism (principal); I25.10 Atherosclerotic heart disease of native coronary artery without angina pectoris; E11.9 Type 2 diabetes mellitus without complications; I10 Essential (primary) hypertension; E78.00 Pure hypercholesterolemia, unspecified; I69.359 Hemiplegia and hemiparesis following cerebral infarction affecting unspecified side; G47.33 Obstructive sleep apnea (adult) (pediatric); I25.2 Old myocardial infarction; Z87.891 Personal history of nicotine dependence; Z95.1 Presence of aortocoronary bypass graft; Z95.0 Presence of cardiac pacemaker; Z95.5 Presence of coronary angioplasty implant and graft
CPT/HCPCS: 71045; 71275; 80048; 84484; 85025; 93005; 96361; 96374; 96375; 99285; Q9967; A4216; J2405

== ENCOUNTER 2018-05-09 13:00 | Observation (INO) | payer OTHER, SELFPAY ==
[2018-05-09] VITALS (10 sets, daily range): BP systolic 127–170; BP diastolic 65–111; PULSE 60; RESP 14–20; TEMP 36.4–36.9; O2SAT 95–98; BMI 37.3; BMI 36.6; BMI 36.7
--- NOTE | 2018-05-09 13:46 | EKG12_ITS ---
Test Reason : Blood Pressure : / mmHG Vent. Rate : 060 BPM Atrial Rate : 060 BPM P-R Int : 276 ms QRS Dur : 122 ms QT Int : 498 ms P-R-T Axes : 000 -34 082 degrees QTc Int : 498 ms Atrial-paced rhythm with prolonged AV conduction Left axis deviation Non-specific intra-ventricular conduction delay Nonspecific ST and T wave abnormality Abnormal ECG Confirmed by YUNI GUALLPA, JOANNA ([id number]), purchasing expeditor NADINE FERRER ([id number]) on 05/12/2018 1:36:38 PM Referred By: Yassine Pugh Confirmed By:JOANNA MORRISSEY MD
--- NOTE | 2018-05-09 13:47 | CT_ITS ---
STUDY: CT BRAIN WITHOUT CONTRAST REASON FOR EXAM: Male, 67 years old. HEADACHE, SYNCOPE RADIATION DOSAGE (If Supplied By Facility): CTDIvol = ( 44.99 ) mGy, DLP = ( 846.73 ) mGycm TECHNIQUE: Transaxial CT imaging of the brain was performed without administration of intravenous contrast material. Individualized dose optimization techniques were used for this CT. COMPARISON: None. FINDINGS: There is cerebral atrophy with widening of the extra-axial spaces and ventricular dilatation. There are areas of decreased attenuation within the white matter tracts of the supratentorial brain, consistent with microvascular disease changes. There is no intracranial hemorrhage. There are no findings of an acute ischemic infarction. Normal soft tissue structures. Normal visualized paranasal sinuses. CT/Brain/Head without Contrast IMPRESSION: Chronic involutional changes of the brain. Electronically Signed: Aly Krueger MD at 15:30 EDT Tel , Service support ,
--- NOTE | 2018-05-09 13:48 | ED.VIS.GEN ---
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 Narrative: Patient states he has been having these pains along with cough and occasional shortness of breath for about a week or more, he was seen here and diagnosed with pneumonia placed on an antibiotic and no other new medications, and is no better. Additionally, he has had 3 syncopal episodes preceded by lightheadedness. He states 1 of them was while lying down and he felt like he stopped breathing, another was after he went to the bathroom came out went over to his bed started feeling lightheaded and then passed out. He denies having any injuries from these. The first episode of passing out was yesterday, the other 2 were this morning, he developed a right-sided headache this morning he states his head feels like it is going to explode. History of strokes. No focal peripheral neurologic symptoms now. - Past Medical History (1) CAD (coronary artery disease) Status: Chronic Comment: Cardiac catheterization 02/24/2017?normal LV size should not, EF 55%, lower [place] multivessel CAD, patent SVG to diagonal 1, OM 2, and RCA, MASON to LAD previously reported as atretic/nonfunctional (not reevaluated at that time), advised medical therapy (2) CVA (cerebral vascular accident) Status: Chronic Comment: Residual left-sided weakness (3) Chronic respiratory failure Status: Chronic Comment: baseline 3L continuously (4) DM type 2 (diabetes mellitus, type 2) Status: Chronic (5) Hyperlipidemia Status: Chronic (6) Hypertension Status: Chronic (7) Obstructive sleep apnea Status: Chronic (8) Seizure Status: Chronic Past Medical History - Allergies and Home Meds Allergies/Adverse Reactions: Allergies ezetimibe Allergy (Verified 05/09/18 13:05) Unknown Fish Containing Products Allergy (Verified 05/09/18 13:05) Unknown glyburide Allergy (Verified 05/09/18 13:05) Unknown lisinopril Allergy (Verified 05/09/18 13:05) Unknown metoprolol Allergy (Verified 05/09/18 13:05) Unknown simvastatin Allergy (Verified 05/09/18 13:05) Unknown Primary Care Physician: [facility] [Primary Care Provider] - Surgical History: angioplasty, coronary bypass surgery, pacemaker implantation, - - cabg,cholecystectemy, hernia, left knee, 4 stents Lives: Spouse/ Significant Other Smoking Status: Former smoker - Family History Maternal Family History: Reports: Heart Disease Paternal Family History: Reports: Unknown Review of Systems General: Reports: Malaise. Denies: Chills, Fever, Sweats Eyes: Denies: Visual changes - bilaterally, Diplopia ENT: Denies: Rhinorrhea, Sore throat Cardiovascular: Reports: Chest pain. Denies: Palpitations Respiratory: Reports: Dyspnea, Cough, Dyspnea on exertion. Denies: Sputum, Orthopnea, Paroxysmal nocturnal dyspnea Gastrointestinal: Reports: Abdominal pain. Denies: Nausea, Vomiting, Diarrhea, Melena, Hematochezia Genitourinary: Denies: Dysuria, Hematuria, Frequency Musculoskeletal: Denies: Neck pain, Back pain, Swelling, Extremity Pain Skin: Denies: Rash, Wounds Neurological: Reports: Headache. Denies: Weakness, Numbness Physical Exam Vital Signs/Narrative: Vital Signs Temp Pulse Resp BP Pulse Ox 05/09/18 13:04 98.1 F 60 20 H 170/74 H 98 05/09/18 13:00 98.1 F 60 20 H 170/74 H 98 Inital Vital Signs reviewed: Yes General: Well nourished, Well developed, Obese, No Acute Distress Head: Normocephalic, Atraumatic Eyes: Perrl, EOMI ENT: Moist mucous membranes, No rhinorrhea, TM's clear Neck: Supple, Nontender Cardiovascular: Regular rate, Regular rhythm, No murmurs Respiratory: No distress, Chest nontender, Diminished - Throughout all flores, worse at bases. Symmetric. Abdomen: Soft, Nontender, Nondistended, Normal bowel sounds Back: Nontender, Normal Inspection. Negative for: CVA tenderness Extremities: Nontender, No edema. Negative for: Calf Tenderness Skin: Normal color, No rash, No Trauma Neurological: Alert, Oriented x3, Cranial nerves II-XII grossly intact, Normal Strength, Normal Sensation Psychological: Normal affect, Normal Mood Diagnostic/Tx/Re-eval Impressions Brain CT 05/09/18 13:47 IMPRESSION: Chronic involutional changes of the brain. Electronically Signed: Aly Krueger MD at 15:30 EDT Tel , Service support , Chest X-Ray 05/09/18 14:36 IMPRESSION: Stable appearance of the chest with no new or acute finding. Electronically Signed: Rich Alvarez MD at 15:52 EDT , Service support , 05/09/18 13:47 Brain/Head without Contrast [CT] Stat 05/09/18 14:36 Chest PA and Lateral [RAD] Stat Laboratory Results 05/09/18 05/09/18 05/09/18 13:05 13:05 13:05 WBC 4.8 RBC 4.06 L Hgb 12.9 L Hct 39.8 L MCV 98.0 H MCH 31.8 MCHC 32.4 RDW 14.1 RDW Differential 50.1 H Plt Count 149 L MPV 10.6 Immature Gran % (Auto) 0.200 Neut % (Auto) 73.8 H Lymph % (Auto) 19.7 [place] % (Auto) 4.2 Eos % (Auto) 1.9 Baso % (Auto) 0.2 Absolute Neuts (auto) 3.5 Absolute Lymphs (auto) 0.94 Total Counted Not Reportable Sodium 139 Potassium 3.6 Chloride 105 Carbon Dioxide 30.0 Anion Gap 4 L BUN 13 Creatinine 0.98 Estim Creat Clear Calc 75.52 Est GFR (MDRD) Af Amer 97 Est GFR (MDRD) Non-Af 81 BUN/Creatinine Ratio 13.2 Glucose 248 H Calcium 8.1 L Troponin I < 0.015 B-Natriuretic Peptide 54.8 - Rhythm Strip Rhythm Strip: Sinus Rhythm Rate: 60 Ectopy: None - EKG Initial EKG Interpretation: No Acute Injury Pattern, Paced, Non-Specific ST Changes Prior: Changed - lateral T-wave flattening - Medical Decision Making Patient had no significant telemetry telemetry events while in the ED. His workup is fairly unremarkable with a chest x-ray been unremarkable. My concern is his multiple episodes of syncope and him having a history of nonsustained ventricular tachycardia. Plan is for admission to PCU for further evaluation. ED Disposition - Plan for ED Patient: Diagnosis: Syncopal episodes, Chest pain, unspecified [facility]errals[facility] [[facility]] -
--- NOTE | 2018-05-09 13:53 | ED.DCSUM_ITS ---
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 Narrative: Patient states he has been having these pains along with cough and occasional shortness of breath for about a week or more, he was seen here and diagnosed with pneumonia placed on an antibiotic and no other new medications, and is no better. Additionally, he has had 3 syncopal episodes preceded by lightheadedness. He states 1 of them was while lying down and he felt like he stopped breathing, another was after he went to the bathroom came out went over to his bed started feeling lightheaded and then passed out. He denies having any injuries from these. The first episode of passing out was yesterday, the other 2 were this morning, he developed a right-sided headache this morning he states his head feels like it is going to explode. History of strokes. No focal peripheral neurologic symptoms now. - Past Medical History (1) CAD (coronary artery disease) Status: Chronic Comment: Cardiac catheterization 02/24/2017?normal LV size should not, EF 55%, [place] multivessel CAD, patent SVG to diagonal 1, OM 2, and RCA, MASON to LAD previously reported as atretic/nonfunctional (not reevaluated at that time), advised medical therapy (2) CVA (cerebral vascular accident) Status: Chronic Comment: Residual left-sided weakness (3) Chronic respiratory failure Status: Chronic Comment: baseline 3L continuously (4) DM type 2 (diabetes mellitus, type 2) Status: Chronic (5) Hyperlipidemia Status: Chronic (6) Hypertension Status: Chronic (7) Obstructive sleep apnea Status: Chronic (8) Seizure Status: Chronic Past Medical History - Allergies and Home Meds Allergies/Adverse Reactions: Allergies ezetimibe Allergy (Verified 05/09/18 13:05) Unknown Fish Containing Products Allergy (Verified 05/09/18 13:05) Unknown glyburide Allergy (Verified 05/09/18 13:05) Unknown lisinopril Allergy (Verified 05/09/18 13:05) Unknown metoprolol Allergy (Verified 05/09/18 13:05) Unknown simvastatin Allergy (Verified 05/09/18 13:05) Unknown Primary Care Physician: [facility] [Primary Care Provider] - Surgical History: angioplasty, coronary bypass surgery, pacemaker implantation, - - cabg,cholecystectemy, hernia, left knee, 4 stents Lives: Spouse/ Significant Other Smoking Status: Former smoker - Family History Maternal Family History: Reports: Heart Disease Paternal Family History: Reports: Unknown Review of Systems General: Reports: Malaise. Denies: Chills, Fever, Sweats Eyes: Denies: Visual changes - bilaterally, Diplopia ENT: Denies: Rhinorrhea, Sore throat Cardiovascular: Reports: Chest pain. Denies: Palpitations Respiratory: Reports: Dyspnea, Cough, Dyspnea on exertion. Denies: Sputum, Orthopnea, Paroxysmal nocturnal dyspnea Gastrointestinal: Reports: Abdominal pain. Denies: Nausea, Vomiting, Diarrhea, Melena, Hematochezia Genitourinary: Denies: Dysuria, Hematuria, Frequency Musculoskeletal: Denies: Neck pain, Back pain, Swelling, Extremity Pain Skin: Denies: Rash, Wounds Neurological: Reports: Headache. Denies: Weakness, Numbness Physical Exam Vital Signs/Narrative: Vital Signs Temp Pulse Resp BP Pulse Ox 05/09/18 13:04 98.1 F 60 20 H 170/74 H 98 05/09/18 13:00 98.1 F 60 20 H 170/74 H 98 Inital Vital Signs reviewed: Yes General: Well nourished, Well developed, Obese, No Acute Distress Head: Normocephalic, Atraumatic Eyes: Perrl, EOMI ENT: Moist mucous membranes, No rhinorrhea, TM's clear Neck: Supple, Nontender Cardiovascular: Regular rate, Regular rhythm, No murmurs Respiratory: No distress, Chest nontender, Diminished - Throughout all flores, worse at bases. Symmetric. Abdomen: Soft, Nontender, Nondistended, Normal bowel sounds Back: Nontender, Normal Inspection. Negative for: CVA tenderness Extremities: Nontender, No edema. Negative for: Calf Tenderness Skin: Normal color, No rash, No Trauma Neurological: Alert, Oriented x3, Cranial nerves II-XII grossly intact, Normal Strength, Normal Sensation Psychological: Normal affect, Normal Mood Diagnostic/Tx/Re-eval Impressions Brain CT 05/09/18 13:47 IMPRESSION: Chronic involutional changes of the brain. Electronically Signed: Aly Krueger MD at 15:30 EDT Tel , Service support , Chest X-Ray 05/09/18 14:36 IMPRESSION: Stable appearance of the chest with no new or acute finding. Electronically Signed: Rich Alvarez MD at 15:52 EDT , Service support , 05/09/18 13:47 Brain/Head without Contrast [CT] Stat 05/09/18 14:36 Chest PA and Lateral [RAD] Stat Laboratory Results 05/09/18 05/09/18 05/09/18 13:05 13:05 13:05 WBC 4.8 RBC 4.06 L Hgb 12.9 L Hct 39.8 L MCV 98.0 H MCH 31.8 MCHC 32.4 RDW 14.1 RDW Differential 50.1 H Plt Count 149 L MPV 10.6 Immature Gran % (Auto) 0.200 Neut % (Auto) 73.8 H Lymph % (Auto) 19.7 [place] % (Auto) 4.2 Eos % (Auto) 1.9 Baso % (Auto) 0.2 Absolute Neuts (auto) 3.5 Absolute Lymphs (auto) 0.94 Total Counted Not Reportable Sodium 139 Potassium 3.6 Chloride 105 Carbon Dioxide 30.0 Anion Gap 4 L BUN 13 Creatinine 0.98 Estim Creat Clear Calc 75.52 Est GFR (MDRD) Af Amer 97 Est GFR (MDRD) Non-Af 81 BUN/Creatinine Ratio 13.2 Glucose 248 H Calcium 8.1 L Troponin I < 0.015 B-Natriuretic Peptide 54.8 - Rhythm Strip Rhythm Strip: Sinus Rhythm Rate: 60 Ectopy: None - EKG Initial EKG Interpretation: No Acute Injury Pattern, Paced, Non-Specific ST Changes Prior: Changed - lateral T-wave flattening - Medical Decision Making Patient had no significant telemetry telemetry events while in the ED. His workup is fairly unremarkable with a chest x-ray been unremarkable. My concern is his multiple episodes of syncope and him having a history of nonsustained ventricular tachycardia. Plan is for admission to PCU for further evaluation. ED Disposition - Plan for ED Patient: Diagnosis: Syncopal episodes, Chest pain, unspecified [facility]errals[facility] [[facility]] -
[2018-05-09 13:57] LABS: Absolute Lymphocyte Count 0.94 X10^3/ul (0.83-4.51); Absolute Neutrophil Count 3.5 X10^3/uL (2.0-7.7); Basophil# 0.01 X10^3/uL; Basophil% 0.2 % (0-1); Eosinophil# 0.09 X10^3/uL; Eosinophils% 1.9 % (0-5); Hematocrit 39.8 % (40-54); Hemoglobin 12.9 g/dl (13.0-16.5); Lymphocyte # 0.94 X10^3/ul (4.0); Lymphocyte % 19.7 % (19-41); Mean Corp Hgb Conc 32.4 g/gl (32-36); Mean Corpuscular Hgb 31.8 pg (27.0-32.0); Mean Platelet Vol. 10.6 fl (6.2-12.0); Monocyte% 4.2 % (0-10); Neutrophil # 3.53 X10^3/uL (2.7-7.7); Neutrophil % 73.8 % (47-70); Platelet Count 149 K/mm3 (150-450); RBC Distribution Width CV 14.1 % (11.6-14.6); RBC Distribution Width SD 50.1 fl (35.1-43.9); Red Blood Count 4.06 M/mm3 (4.6-6.2); White Blood Count 4.8 K/mm3 (4.4-11.0)
[2018-05-09] MEDS: Ipratropium/Albuterol Sulfate 3 ML AMPUL.NEB INHALATION (13:57)
[2018-05-09 14:00] LABS: POSITIVE COUNT NO; POSITIVE DIFFERENTIAL NO; POSITIVE MORPHOLOGY NO
[2018-05-09] MEDS: Morphine 4 MG/ML Syringe IV ×2 (14:00→18:06)
[2018-05-09 14:09] LABS: Anion Gap 4 (5-15); BUN 13 mg/dL (7-18); BUN/Creat Ratio 13.2 RATIO (10-20); Calcium,Total 8.1 mg/dL (8.5-10.1); Chloride 105 mmol/L (98-107); Creatinine, Serum 0.98 mg/dL (0.70-1.30); EST Glomerular Filtration Rate 81 mL/min (>60); Est Glom Filt Rate - Afr Amer 97 mL/min (>60); Estimated Creatinine Clearance 75.52 ml/min; Glucose 248 mg/dL (74-106); Potassium 3.6 mmol/L (3.5-5.1); Sodium Level 139 mmol/L (136-145)
[2018-05-09 14:31] LABS: BNP,B-Type NATRIURETIC PEPTIDE 54.8 pg/mL (0-100)
--- NOTE | 2018-05-09 14:36 | RAD_ITS ---
STUDY: X-RAY CHEST REASON FOR EXAM: Male, 67 years old. Chest pain with shortness of breath and cough. TECHNIQUE: Frontal and lateral views of the chest. COMPARISON: May 04, 2018 FINDINGS: There is a mild diffuse interstitial pattern unchanged. There is no demonstrated pleural abnormality. There is cardiomegaly unchanged. There are sternotomy wires and a dual-lead cardiac pacer unchanged. Normal mediastinum and cata. Normal visualized pulmonary arteries. Normal visualized aortic arch and descending thoracic aorta. Normal visualized thoracic spine. Normal visualized ribs, clavicles, and shoulders. There is no demonstrated abnormality of the visualized soft tissue structures of the upper abdomen. RAD/Chest PA and Lateral IMPRESSION: Stable appearance of the chest with no new or acute finding. Electronically Signed: Rich Alvarez MD at 15:52 EDT , Service support ,
[2018-05-09 17:17] LABS: Mucous, Urine 0 SEEN /hpf (<or=2+); Red Blood Cells-Urine 0 SEEN /hpf (0-5)
[2018-05-09 17:18] LABS: Color, Urine Yellow (Yellow); Glucose, Dipstick 1000 mg/dl (Normal); Ketone-Dipstick 5 mg/dl (Negative); Leukocyte Esterase-Dipstick 25 /ul (Negative); Nitrite-Dipstick Negative (Negative); Occult Blood-Urine Negative /ul (Negative); Protein-Dipstick 30 mg/dl (Negative); Specific Gravity, Urine 1.025 (1.002-1.030); Urine Bilirubin Dipstick Negative (Negative); Urine Clarity Cloudy (Clear); Urine Urobilinogen Normal (Normal)
[2018-05-09 17:27] LABS: Bacteria RARE /hpf (None Seen); Squamous Epithelial Cells - UA 0-5 SEEN /hpf (0-5); White Blood Cells 0-5 SEEN /hpf (0-5)
--- NOTE | 2018-05-09 18:55 | EKG12_ITS ---
Test Reason : CP ADMIT Blood Pressure : / mmHG Vent. Rate : 060 BPM Atrial Rate : 060 BPM P-R Int : 306 ms QRS Dur : 126 ms QT Int : 504 ms P-R-T Axes : 093 -23 093 degrees QTc Int : 504 ms AV dual-paced rhythm with prolonged AV conduction Abnormal ECG When compared with ECG of 09-MAY-2018 14:04, MANUAL COMPARISON REQUIRED, DATA IS UNCONFIRMED Confirmed by PADILLA GUALLPA, CALI ([id number]), acquisitions editor NADINE FERRER ([id number]) on 05/11/2018 1:12:13 PM Referred By: Yassine Pugh Confirmed By:CALI CAUSEY MD
--- NOTE | 2018-05-09 19:45 | PCM.HP.STD ---
Problem List (1) Syncopal episodes Status: Acute Qualifiers: Syncope type: unspecified Qualified Code(s): R55 - Syncope and collapse (2) Atypical chest pain Status: Acute History of Present Illness Date of Admission: 05/09/18 Chief Complaint: Multiple syncopal episodes, atypical right-sided chest pain The patient is a 67 year old M who was seen in the emergency room at [facility] with a chief complaint of 2 syncopal episodes today and 3 syncopal episode yesterday. At least some of these episodes were witnessed by his and stated that he was not out for very long-she states that he was not out for more than 1-2 minutes. There was no evidence of postictal period after these episodes. When I asked the patient and his if this is the first time he has had syncopal episodes, they told me that no it was not and that he has had syncopal episodes for 17 years. I then asked whether any of the doctors were able to explain any of the other syncopal episodes and his and the patient could not tell me that they were given adequate explanations for any other episodes that he has had. Patient was just seen in the emergency room last week and was given a diagnosis of pneumonia, the chest x-ray that was done today does not show any evidence of pneumonia and I personally doubt that he really had pneumonia it is more likely he probably had atelectasis. CTA of the chest was done at that visit and showed a patchy infiltrate in the medial right lower lobe-again this may have been atelectasis. He has been taking Vibramycin since being seen in the emergency room last week. 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 Workup in the emergency room here consisted of a CT of the brain without contrast which showed chronic involutional changes of the brain, CBC was unremarkable, chemistry profile showed an elevated glucose at 248, troponins were unremarkable, beta natruretic peptide was 54. Patient's urinalysis was unremarkable. Patient's monitor showed an atrial paced rhythm with intrinsic QRS complexes. Patient was given IV morphine in the emergency room for chest discomfort and one albuterol treatment. He will be placed in observation status for syncope on PCU, his pacemaker will be interrogated, cardiology knows that there will be a pacemaker interrogation to look at in the morning-I will not consult them to see the patient. I told the patient's and the patient that if the pacemaker interrogation did not show any significant arrhythmias, he would have to follow-up with his primary care doctor who works for the [facility] to see if further workup would be warranted. I recommended that he go to a neurologist for an opinion if his pacemaker interrogation did not show a significant arrhythmia. Past Medical History Past Medical History (Chronic Problems): Chronic Problems Hyperlipidemia (Chronic) Hypertension (Chronic) Obesity (Chronic) Pacemaker (Chronic) 2001 Weakness of limb (Chronic) Left-sided weakness, chronic Chronic respiratory failure (Chronic) baseline 3L continuously CAD (coronary artery disease) (Chronic) Cardiac catheterization 02/24/2017?normal LV size should not, EF 55%, [place] multivessel CAD, patent SVG to diagonal 1, OM 2, and RCA, MASON to LAD previously reported as atretic/nonfunctional (not reevaluated at that time), advised medical therapy DM type 2 (diabetes mellitus, type 2) (Chronic) History of smoking (Chronic) Obstructive sleep apnea (Chronic) Seizure (Chronic) left sided tingling left body (Chronic) S/P CABG (coronary artery bypass graft) (Chronic) S/P PTCA (percutaneous transluminal coronary angioplasty) (Chronic) CVA (cerebral vascular accident) (Chronic) Residual left-sided weakness Allergies ezetimibe Allergy (Verified 05/09/18 13:05) Unknown Fish Containing Products Allergy (Verified 05/09/18 13:05) Unknown glyburide Allergy (Verified 05/09/18 13:05) Unknown lisinopril Allergy (Verified 05/09/18 13:05) Unknown metoprolol Allergy (Verified 05/09/18 13:05) Unknown simvastatin Allergy (Verified 05/09/18 13:05) Unknown Home Medications: Ambulatory Orders Medication Instructions Recorded Atenolol [Tenormin (beta theron)] 100 mg PO DAILY 08/09/16 Atorvastatin Calcium [Lipitor] 80 mg PO QHS 08/09/16 Finasteride [Proscar] 5 mg PO DAILY 08/09/16 Furosemide [Lasix] 20 mg PO DAILY 08/09/16 Multivit with Minerals/Lutein [Pub 1 tab PO DAILY 08/09/16 Multivitamin 50 Plus Tab] Pantoprazole Sodium [Protonix] 40 mg PO BID 08/09/16 Tamsulosin HCl [Flomax] 0.8 mg PO QHS 08/09/16 Clopidogrel Bisulfate [Clopidogrel] 75 mg PO DAILY 12/25/16 Ketoconazole 1 applicatio TOPICAL DAILY PRN PRN 02/22/17 Aspirin E.C. [Ecotrin] 81 mg PO DAILY@0800 09/01/17 Cholecalciferol (VIT D3) [Vitamin 3,000 unit PO DAILY 09/01/17 D3] Escitalopram Oxalate [Lexapro] 10 mg PO DAILY 09/01/17 Insulin Regular, Human [Humulin R See Protocol SQ TIDCM 09/01/17 U-500 Kwikpen] Ranolazine [Ranexa] 1,000 mg PO BID 09/01/17 Budesonide/Formoterol Fumarate 6 gm IH BID PRN 02/26/18 [Symbicort 160-4.5 Mcg Inhaler] Doxycycline 100 mg PO BID #20 capsule 05/04/18 Surgical History: angioplasty, coronary bypass surgery, pacemaker implantation, - - cabg,cholecystectemy, hernia, left knee, 4 stents Psychiatric History: No pertinent psych hx Lives: Spouse/ Significant Other Smoking Status: Former smoker Tobacco Use: Non-smoker Alcohol: None Drugs: None - *Family History Maternal History Items: Heart Disease Paternal History Items: Unknown Review of Systems Constitutional: Denies: Anorexia, Chills, Fever, Night Sweats, Malaise, Weakness, Weight Change, Fatigue Eyes: Denies: Cataracts, Conjunctivae Inflammation, Double vision, Drainage HEENT: Denies: Dysphasia, Ear Pain, Eye Pain, Hearing Changes, Nasal bleeding, Nasal Congestion, Post Nasal Drip Cardiovascular: Reports: Chest Pain - Patient complains of an achy feeling in his right chest area-this appears to be chronic in nature. Denies: Claudication, Chest Tightness, Edema, Heaviness, Palpitations, Paroxysmal Noc. Dyspnea Respiratory: Denies: Cough, Hemoptysis, Pleuritic Pain, Shortness of Breath, Shortness of breath at rest, Shortness of breath upon exertion, Sputum production, Wheezing Gastrointestinal: Denies: Abdominal Pain, Constipation, Diarrhea, Hematemesis, Hematochezia, Nausea, Melena, Vomiting Genitourinary: Denies: Dysuria, Frequency, Hematuria, Hesitancy, Urgency Musculoskeletal: Denies: Back Pain, Foot Pain, Hand Pain, Joint Pain, Joint stiffness, Joint swelling Skin: Denies: Dryness, Pruritis, Rash Neurological: Denies: Balance problems, Blurred vision, Double vision, Change in Speech, Slurred speech, Difficulty swallowing, Focal weakness, Numbness, Tingling Psychiatric: Denies: Anxiety, Depression, Homicidal Ideations, Suicidal Ideations Endocrine: Denies: Change in Body Habitus, Heat/ Cold Intolerance, Polydipsia, Polyuria Hematologic/ Lymphatic: Denies: Adenopathy, Anemia, Easy Bruising, Easy Bleeding, Petechiae, Purpura VTE Information - Inpt Only VTE Present on Admission: No VTE Mechan Device Prophylaxis: None VTE Pharm Prophylaxis ordered?: Yes Patient Problems: Active and Suspected Problems Syncopal episodes (Acute) Atypical chest pain (Acute) Chest pain (Acute) - Physical Exam General: Alert, Oriented x3, Cooperative, No apparent distress, Well developed, Well nourished HEENT: Atraumatic, PERRLA, EOMI, Normocephalic Oral: Moist Mucosa Neck: Supple, No JVD, Negative Carotid Bruits, No Nuchal Rigidity, Trachea Midline, Thyroid Normal Size and Texture Lungs: Clear to auscultation, Normal air movement, No rhonchi, No wheeze, No rales Cardiovascular: Regular rate, Regular Rhythm, Normal S1, Normal S2, No murmurs, No Ectopic Activity, PMI Normal, No rub noted, No Gallop Abdomen: Bowel Sounds Present, Soft, Non Tender, Non-Distended, Obese, No hernias noted Extremities: No clubbing, No cyanosis, Capillary Refill Less than 3 Seconds Skin: No rashes, No breakdown Musculoskeletal: No Tenderness to Palpation of Joints or Extremities Neurological: Cranial nerves II-XII grossly intact, Neuro grossly intact, Sensory exam intact to light touch and pain Psych/Mental Status: Normal Affect, Appropriate, Alert and oriented to time, place, person, mood and affect Vital Signs Temp Pulse Resp BP Pulse Ox 97.6 F L 60 18 134/88 H 98 05/09/18 18:50 05/09/18 18:52 05/09/18 18:50 05/09/18 18:50 05/09/18 18:50 Oxygen Flow Rate (L/min) 3 Oxygen Delivery Method Nasal Cannula Weight: 115.9 kg Body Mass Index (BMI) 36.6 Finger Stick Blood Glucose 81 Laboratory Tests Past 24 Hrs 05/09/18 05/09/18 05/09/18 13:05 13:05 13:05 WBC 4.8 RBC 4.06 L Hgb 12.9 L Hct 39.8 L MCV 98.0 H MCH 31.8 MCHC 32.4 RDW 14.1 RDW Differential 50.1 H Plt Count 149 L MPV 10.6 Immature Gran % (Auto) 0.200 Neut % (Auto) 73.8 H Lymph % (Auto) 19.7 Teller % (Auto) 4.2 Eos % (Auto) 1.9 Baso % (Auto) 0.2 Absolute Neuts (auto) 3.5 Absolute Lymphs (auto) 0.94 Total Counted Not Reportable Sodium 139 Potassium 3.6 Chloride 105 Carbon Dioxide 30.0 Anion Gap 4 L BUN 13 Creatinine 0.98 Estim Creat Clear Calc 75.52 Est GFR (MDRD) Af Amer 97 Est GFR (MDRD) Non-Af 81 BUN/Creatinine Ratio 13.2 Glucose 248 H Calcium 8.1 L Troponin I < 0.015 B-Natriuretic Peptide 54.8 Urine Color Urine Clarity Urine pH Ur Specific [place] Urine Protein Urine Glucose (UA) Urine Ketones Urine Occult Blood Urine Nitrite Urine Bilirubin Urine Urobilinogen Ur Leukocyte Esterase Urine RBC Urine WBC Ur Squamous Epith Cells Urine Bacteria Urine Mucus 05/09/18 05/09/18 16:35 17:10 WBC RBC Hgb Hct MCV MCH MCHC RDW RDW Differential Plt Count MPV Immature Gran % (Auto) Neut % (Auto) Lymph % (Auto) Teller % (Auto) Eos % (Auto) Baso % (Auto) Absolute Neuts (auto) Absolute Lymphs (auto) Total Counted Sodium Potassium Chloride Carbon Dioxide Anion Gap BUN Creatinine Estim Creat Clear Calc Est GFR (MDRD) Af Amer Est GFR (MDRD) Non-Af BUN/Creatinine Ratio Glucose Calcium Troponin I < 0.015 B-Natriuretic Peptide Urine Color Yellow Urine Clarity Cloudy Urine pH 6.0 Ur Specific [place] 1.025 Urine Protein 30 H Urine Glucose (UA) 1000 H Urine Ketones 5 H Urine Occult Blood Negative Urine Nitrite Negative Urine Bilirubin Negative Urine Urobilinogen Normal Ur Leukocyte Esterase 25 H Urine RBC 0 SEEN Urine WBC 0-5 SEEN Ur Squamous Epith Cells 0-5 SEEN Urine Bacteria RARE Urine Mucus 0 SEEN Assessment/Plan All Active Problems Syncopal episodes (Acute) Atypical chest pain (Acute) Left-sided weakness (Resolved) Unstable angina (Ruled-out) Hematuria (Resolved) Chest pain (Acute) #1 multiple syncopal episodes-etiology unclear, patient will be placed in observation status on PCU, he will undergo pacemaker interrogation, if this is unremarkable, the option would be to try to adjust the patient's blood pressure medication downward in the hope that this has something to do with his syncopal episodes. In the end, I think the patient is going to have to see a neurologist to rule out the other causes of syncope if his pacemaker interrogation is unremarkable. Again, patient gets his full medical care at the [facility]. #2 atypical chest pain-patient has been in the hospital multiple times over the last 2 years complaining of chest pain, this has been thoroughly investigated from the cardiac standpoint, my feeling is that he complains a great deal about various ailments, I do not feel his enzymes need to be cycled, he told this examiner that he takes a large amount of ibuprofen daily if and I told him he should not be taking ibuprofen due to the fact that he has type 2 diabetes and is on Plavix and aspirin. I went to great length explaining this to him and his . I will place the patient on some [place] if he has chest discomfort while in the hospital #3 type 2 diabetes-patient is on U- 500 insulin, I wrote for his home dosage, blood sugars will be monitored #4 obstructive sleep apnea-patient has his BiPAP machine here and he will use it #5 coronary artery disease-believed to be stable at this time #6 obesity #7 chronic hypoxic respiratory failure #8 hypertension #9 cerebrovascular disease #10 recently diagnosed community-acquired pneumonia-05/04/18-again, I am in doubt of this diagnosis but will keep the patient on his current antibiotic. Code Visit OBSV E&M: [id number] Initial observation care L3
--- NOTE | 2018-05-09 20:15 | NURSING ---
Pacer check performed at bedside and transmitted to [facility]
--- NOTE | 2018-05-09 21:41 | EKG12_ITS ---
Test Reason : CP Blood Pressure : / mmHG Vent. Rate : 060 BPM Atrial Rate : 060 BPM P-R Int : 288 ms QRS Dur : 124 ms QT Int : 346 ms P-R-T Axes : 000 -26 096 degrees QTc Int : 346 ms Atrial-paced rhythm with prolonged AV conduction Cannot rule out Inferior infarct , age undetermined Abnormal ECG When compared with ECG of 09-MAY-2018 21:55, MANUAL COMPARISON REQUIRED, DATA IS UNCONFIRMED Confirmed by PADILLA GUALLPA, CALI ([id number]), editorial writer NADINE FERRER ([id number]) on 05/11/2018 1:09:47 PM Referred By: Yassine Pugh Confirmed By:CALI CAUSEY MD
[2018-05-09] MEDS: Atorvastatin Calcium 80 MG Tablet PO (21:49)
[2018-05-09] MEDS: HYDROcodone Bitartrate/Apap 5/325 Tablet PO (21:50)
[2018-05-09] MEDS: Tamsulosin HCl 0.4 MG Capsule 0.8 MG PO (21:51)
[2018-05-09] MEDS: Doxycycline 100 MG CAPSULE PO (21:51)
[2018-05-09] MEDS: Ranolazine 500 MG Tablet 1000 MG PO (21:51)
[2018-05-09] MEDS: Pantoprazole Sodium 40 MG Tablet PO (21:52)
[2018-05-09 22:15] LABS: Bedside Glucose 72 mg/dL (70-110)
[2018-05-09 22:15] LABS: Bedside Glucose 65 mg/dL (70-110)
[2018-05-10] VITALS (8 sets, daily range): BP systolic 106–138; BP diastolic 50–78; PULSE 60–65; RESP 14–18; TEMP 36.6–36.8; O2SAT 93–95; BMI 36.6
--- NOTE | 2018-05-10 01:02 | CT_ITS ---
STUDY: CTA NECK WITH CONTRAST REASON FOR EXAM: Male, 67 years old. CVA RADIATION DOSAGE (If Supplied By Facility): CTDIvol = ( 24.99 ) mGy, DLP = ( 1016.69 ) mGycm TECHNIQUE: CT angiography with multi-detector data acquisition was performed from the aortic arch to the skull base following intravenous administration of Isovue 370 100 IV. MIP images were reconstructed from the axial data set. Post-processing of the angiographic images was performed, with multiplanar reformation and 3D reconstruction. Individualized dose optimization techniques were used for this CT. COMPARISON: None. FINDINGS: AORTIC ARCH: Normal visualized aortic arch. Normal origins of the brachiocephalic, left common carotid, and left subclavian arteries. RIGHT CAROTID ARTERIES: Normal right common carotid artery (CCA). Normal right common carotid bulb. Normal origin of the right internal carotid (ICA) artery without a hemodynamically significant stenosis. Normal visualized cervical portion of the right internal carotid artery. Normal origin of the right external carotid artery (ECA). LEFT CAROTID ARTERIES: Normal left common carotid artery (CCA). Normal left common carotid bulb. Normal origin of the left internal carotid (ICA) artery without a hemodynamically significant stenosis. Normal visualized cervical portion of the left internal carotid artery. Normal origin of the left external carotid artery (ECA). VERTEBRAL ARTERIES: Normal bilateral vertebral arteries. CT/CTA Neck W/WO Contrast IMPRESSION: Normal bilateral cervical carotid and vertebral arteries. Electronically Signed: Cr Huynh MD at 5:50 EDT Tel , Service support ,
--- NOTE | 2018-05-10 01:03 | PCM.PN.BLA ---
Progress Note Patient who was admitted for syncope going on for 17 years now with stroke-like symptoms'.With NIH score of 14. Patient refused to hit face when left arm, which was reported as weak side by nurses, was lifted against face. His left leg was stiff. Patient mumbling. Review of records shows that patient developed unresponsiveness on previous admission. Also previous neurology notes shows shows: NONphysiologic aphasia, recurrent, multiple despite keppra, no evidence cva, suspect stressors, On plavix, asa and high intensity statin. Will CT head without contrast, CTA head and brain without contrast. CTA neck with and without contrast. Risk of imaging and contrast was explained to patient and he agreed.
--- NOTE | 2018-05-10 01:05 | NURSING ---
Entered room to find aide at bedside with patient who was aphasic. Initially pointed to finger and nodded when asked if BS felt low. BGT 91. Called recharger in to room to asses patient for potential stroke alert. event staff performed NIHSS. Alerted doctor to status change. Doctor came in to see patient and ordered imaging of head/neck.
--- NOTE | 2018-05-10 01:09 | PN_ITS ---
Progress Note Patient who was admitted for syncope going on for 17 years now with stroke-like symptoms'.With NIH score of 14. Patient refused to hit face when left arm, which was reported as weak side by nurses, was lifted against face. His left leg was stiff. Patient mumbling. Review of records shows that patient developed unresponsiveness on previous admi ssion. Also previous neurology notes shows shows: NONphysiologic aphasia, recurrent, multiple despite keppra, no evidence cva, suspect stressors, On plavix, asa and high intensity statin. Will CT head without contrast, CTA head and brain without contrast. CTA neck with and without contrast. Risk of imaging and contrast was explained to patient and he agreed.
--- NOTE | 2018-05-10 01:09 | CT_ITS ---
STUDY: CT BRAIN WITH AND WITHOUT CONTRAST REASON FOR EXAM: Male, 67 years old. Headaches RADIATION DOSAGE (If Supplied By Facility): CTDIvol = ( 24.99 ) mGy, DLP = ( 1016.69 ) mGycm TECHNIQUE: Transaxial CT imaging of the brain was performed pre and post contrast administration. The examination was performed with intravenous administration of Isovue 370 100 IV. Individualized dose optimization techniques were used for this CT. COMPARISON: None. FINDINGS: Normal soft tissue structures. Normal calvarium. Normal size ventricles and extra-axial spaces for the patient's age. Normal white matter tracts of the cerebral hemispheres. Normal basal ganglia and thalami. Normal brainstem. Normal cerebellum. There is no intracranial hemorrhage. There are no findings of an acute ischemic infarction. Normal visualized paranasal sinuses. CT/CTA Head W/WO Contrast IMPRESSION: Normal unenhanced and enhanced CT scan of the brain. No acute findings in the brain Electronically Signed: Cr Huynh MD at 2:49 EDT Tel , Service support ,
[2018-05-10 01:36] LABS: Bedside Glucose 91 mg/dL (70-110)
--- NOTE | 2018-05-10 04:03 | EKG12_ITS ---
Test Reason : CP Blood Pressure : / mmHG Vent. Rate : 060 BPM Atrial Rate : 060 BPM P-R Int : 294 ms QRS Dur : 126 ms QT Int : 492 ms P-R-T Axes : -28 -26 083 degrees QTc Int : 492 ms Atrial-paced rhythm with prolonged AV conduction Non-specific intra-ventricular conduction block Nonspecific T wave abnormality Abnormal ECG When compared with ECG of 09-MAY-2018 18:45, MANUAL COMPARISON REQUIRED, DATA IS UNCONFIRMED Confirmed by PADILLA GUALLPA, CALI ([id number]), business editor NADINE FERRER ([id number]) on 05/11/2018 1:11:03 PM Referred By: Yassine Pugh Confirmed By:CALI CAUSEY MD
[2018-05-10] MEDS: HYDROcodone Bitartrate/Apap 5/325 Tablet PO ×2 (04:06→10:06)
[2018-05-10 06:46] LABS: Bedside Glucose 160 mg/dL (70-110)
[2018-05-10] MEDS: Insulin Lispro 100 UNIT/ML INSULN.PEN SC ×2 (08:06→11:57)
[2018-05-10] MEDS: Aspirin E.C. 81 MG Tablet PO (08:42)
[2018-05-10] MEDS: Doxycycline 100 MG CAPSULE PO (09:49)
[2018-05-10] MEDS: Escitalopram Oxalate 10 MG Tablet PO (09:49)
[2018-05-10] MEDS: Clopidogrel Bisulfate 75 MG Tablet PO (09:49)
[2018-05-10] MEDS: Finasteride 5 MG Tablet PO (09:50)
[2018-05-10] MEDS: Pantoprazole Sodium 40 MG Tablet PO (09:50)
[2018-05-10] MEDS: Furosemide 20 MG Tablet PO (09:51)
[2018-05-10] MEDS: Ranolazine 500 MG Tablet 1000 MG PO (09:51)
[2018-05-10] MEDS: Atenolol 100 MG Tablet PO (09:52)
[2018-05-10 11:20] LABS: Bedside Glucose 178 mg/dL (70-110)
--- NOTE | 2018-05-10 11:31 | DCINST_ITS ---
- Discharge Diagnoses Current Active Problems: Current Active and Chronic Problems Syncopal episodes (Acute) Atypical chest pain (Acute) Chest pain (Acute) You will use the following diet at home:: Calorie/Carbohydrate Controlled (specify 1200, 1400, etc) - 1800 naman / day, Cardiac Your food should be the consistency of: Regular Your liquids should be the consistency of: Regular/Thin Discharge Activity: May Not Drive Allergies/Adverse Reactions: Allergies ezetimibe Allergy (Verified 05/09/18 13:05) Unknown Fish Containing Products Allergy (Verified 05/09/18 13:05) Unknown glyburide Allergy (Verified 05/09/18 13:05) Unknown lisinopril Allergy (Verified 05/09/18 13:05) Unknown metoprolol Allergy (Verified 05/09/18 13:05) Unknown simvastatin Allergy (Verified 05/09/18 13:05) Unknown Medications to take at Discharge Atenolol [Tenormin (beta theron)] 100 mg PO DAILY 08/09/16 Atorvastatin Calcium [Lipitor] 80 mg PO QHS 08/09/16 Finasteride [Proscar] 5 mg PO DAILY 08/09/16 Furosemide [Lasix] 20 mg PO DAILY 08/09/16 Multivit with Minerals/Lutein [Pub Multivitamin 50 Plus Tab] 1 tab PO DAILY 08/09/16 Pantoprazole Sodium [Protonix] 40 mg PO BID 08/09/16 Tamsulosin HCl [Flomax] 0.8 mg PO QHS 08/09/16 Clopidogrel Bisulfate [Clopidogrel] 75 mg PO DAILY 12/25/16 Ketoconazole 1 applicatio TOPICAL DAILY PRN PRN 02/22/17 Aspirin E.C. [Ecotrin] 81 mg PO DAILY@0800 09/01/17 Cholecalciferol (VIT D3) [Vitamin D3] 3,000 unit PO DAILY 09/01/17 Escitalopram Oxalate [Lexapro] 10 mg PO DAILY 09/01/17 Insulin Regular, Human [Humulin R U-500 Kwikpen] See Protocol SQ TIDCM 09/01/17 Ranolazine [Ranexa] 1,000 mg PO BID 09/01/17 Budesonide/Formoterol Fumarate [Symbicort 160-4.5 Mcg Inhaler] 6 gm IH BID PRN 02/26/18 Doxycycline 100 mg PO BID #20 capsule 05/04/18 Primary Care Physician: [facility] [Primary Care Provider] - Please follow up with your Primary Care Physician in: 1-2 weeks Test Results: Test results from this visit will be discussed in further detail at your follow- up appointment, if applicable. Please Follow Up With: Psychiatry When: 1-2 weeks Proposed Discharge Date: 05/10/18
--- NOTE | 2018-05-10 14:18 | PCM.DC.SUM ---
Discharge Date and Diagnosis Date of Admission: 05/09/18 Date of Discharge: 05/10/18 - Primary Discharge Diagnosis Syncope, nonphysiologic Atypical chest pain-musculoskeletal Type 2 diabetes with mild hypoglycemia Sleep apnea Coronary artery disease History of CVA Obesity Chronic hypoxic respiratory failure Recent community-acquired pneumonia Hypertension Pacemaker - Secondary Discharge Diagnosis Chronic Problems Hyperlipidemia (Chronic) Hypertension (Chronic) Obesity (Chronic) Pacemaker (Chronic) 2001 Weakness of limb (Chronic) Left-sided weakness, chronic Chronic respiratory failure (Chronic) baseline 3L continuously CAD (coronary artery disease) (Chronic) Cardiac catheterization 02/24/2017?normal LV size should not, EF 55%, [place] multivessel CAD, patent SVG to diagonal 1, OM 2, and RCA, MASON to LAD previously reported as atretic/nonfunctional (not reevaluated at that time), advised medical therapy DM type 2 (diabetes mellitus, type 2) (Chronic) History of smoking (Chronic) Obstructive sleep apnea (Chronic) Seizure (Chronic) left sided tingling left body (Chronic) S/P CABG (coronary artery bypass graft) (Chronic) S/P PTCA (percutaneous transluminal coronary angioplasty) (Chronic) CVA (cerebral vascular accident) (Chronic) Residual left-sided weakness Hospital Course and Treatment Imaging Results: CT/Brain/Head without Contrast IMPRESSION: Chronic involutional changes of the brain. RAD/Chest PA and Lateral IMPRESSION: Stable appearance of the chest with no new or acute finding. CT/CTA Neck W/WO Contrast IMPRESSION: Normal bilateral cervical carotid and vertebral arteries. CT/CTA Head W/WO Contrast IMPRESSION: Normal unenhanced and enhanced CT scan of the brain. No acute findings in the brain Operations: None Procedures: None Summary of Care Provided: Hospital course: The patient is a 67 year old M with a past medical history of multiple workups for syncope and chest pain which have been negative in the past, also with a history of CVA, CAD, unclear hx of seizure, who had multiple syncopal episodes the day prior and right-sided chest pain. In the ER he stated he has had ongoing syncopal episodes were 17 years and that he has never had an clear diagnosis. He had recently been treated for pneumonia and had been taking doxycycline as an outpatient. He had a heart catheterization in 2018 that was negative. He was admitted for syncope. CT of the brain was negative. MRI could not be at obtain secondary to pacemaker. Pacemaker was interrogated and was negative. Bloodwork was unremarkable. CTA of the head and neck were obtained and were negative. Urinalysis was negative. Troponin was negative. He was mildly hypoglycemic at admission, however his oral intake status was unclear at that time. He was started on his normal insulin doses and his blood sugars were well controlled controlled and his hypoglycemia resolved on its own. He had no events on telemetry. BNP was negative. With his workup now being negative, and multiple negative workups in the past, it seems likely that there is a psychiatric component to his events. He has been evaluated by neurology here in the past and has been noted to have nonphysiologic symptoms, with it noted to be suspected secondary to stressors. He has had multiple EEGs negative for seizure. As he remained in stable condition, he was discharged home on his prior home medications. He was advised to follow-up with his PCP in 1-2 weeks. I also advised him to follow-up with psychiatry in 1-2 weeks, he will need to pursue this at the [place]. This patient was seen by Sridhar Mullins PA-C under the supervision of Doctor Kevin. [] - Physical Exam General: Alert, Oriented x3, Cooperative HEENT: Atraumatic, PERRLA, EOMI, Normocephalic Neck: Supple, No JVD, Negative Carotid Bruits Lungs: Clear to auscultation, Normal air movement Cardiovascular: Regular rate, No murmurs Abdomen: Bowel Sounds Present, Soft, Non Tender Extremities: No edema, Capillary Refill Less than 3 Seconds Skin: No rashes, No breakdown Musculoskeletal: No Tenderness to Palpation of Joints or Extremities Neurological: Cranial nerves II-XII grossly intact Psych/Mental Status: Normal Affect, Appropriate Vital Signs Temp Pulse Resp BP Pulse Ox 98.2 F 60 18 121/50 H 94 05/10/18 09:45 05/10/18 11:00 05/10/18 09:45 05/10/18 09:45 05/10/18 09:45 Oxygen Flow Rate (L/min) 3 Oxygen Delivery Method Bi-pap Weight: 255 lb 8.252 oz Body Mass Index (BMI) 36.6 Finger Stick Blood Glucose 81 Intake and Output for Last 24 Hours 05/08/18 05/09/18 05/10/18 23:59 23:59 23:59 Intake Total 240 / 240 460 / 460 Output Total 225 / 225 275 / 275 Balance 185 / 185 Laboratory Tests Past 24 Hrs 05/09/18 05/09/18 05/09/18 13:05 16:35 17:10 Troponin I < 0.015 B-Natriuretic Peptide 54.8 Urine Color Yellow Urine Clarity Cloudy Urine pH 6.0 Ur Specific [place] 1.025 Urine Protein 30 H Urine Glucose (UA) 1000 H Urine Ketones 5 H Urine Occult Blood Negative Urine Nitrite Negative Urine Bilirubin Negative Urine Urobilinogen Normal Ur Leukocyte Esterase 25 H Urine RBC 0 SEEN Urine WBC 0-5 SEEN Ur Squamous Epith Cells 0-5 SEEN Urine Bacteria RARE Urine Mucus 0 SEEN 05/09/18 21:03 Troponin I < 0.015 B-Natriuretic Peptide Urine Color Urine Clarity Urine pH Ur Specific [place] Urine Protein Urine Glucose (UA) Urine Ketones Urine Occult Blood Urine Nitrite Urine Bilirubin Urine Urobilinogen Ur Leukocyte Esterase Urine RBC Urine WBC Ur Squamous Epith Cells Urine Bacteria Urine Mucus POC Glucose 05/10/18 05/10/18 05/10/18 10:57 06:41 00:37 POC Glucose 178 H 160 H 91 05/09/18 05/09/18 22:04 21:46 POC Glucose 72 65 L Discharge Diet: Low fat/ Low Cholesterol, 1800 Calorie Control Diet, 2000 mg Sodium Diet Discharge Activity: May Not Drive Home Medications: Medications to take at Discharge Atenolol [Tenormin (beta theron)] 100 mg PO DAILY 08/09/16 Atorvastatin Calcium [Lipitor] 80 mg PO QHS 08/09/16 Finasteride [Proscar] 5 mg PO DAILY 08/09/16 Furosemide [Lasix] 20 mg PO DAILY 08/09/16 Multivit with Minerals/Lutein [Pub Multivitamin 50 Plus Tab] 1 tab PO DAILY 08/09/16 Pantoprazole Sodium [Protonix] 40 mg PO BID 08/09/16 Tamsulosin HCl [Flomax] 0.8 mg PO QHS 08/09/16 Clopidogrel Bisulfate [Clopidogrel] 75 mg PO DAILY 12/25/16 Ketoconazole 1 applicatio TOPICAL DAILY PRN PRN 02/22/17 Aspirin E.C. [Ecotrin] 81 mg PO DAILY@0800 09/01/17 Cholecalciferol (VIT D3) [Vitamin D3] 3,000 unit PO DAILY 09/01/17 Escitalopram Oxalate [Lexapro] 10 mg PO DAILY 09/01/17 Insulin Regular, Human [Humulin R U-500 Kwikpen] See Protocol SQ TIDCM 09/01/17 Ranolazine [Ranexa] 1,000 mg PO BID 09/01/17 Budesonide/Formoterol Fumarate [Symbicort 160-4.5 Mcg Inhaler] 6 gm IH BID PRN 02/26/18 Doxycycline 100 mg PO BID #20 capsule 05/04/18 Primary Care Physician: [facility] [Primary Care Provider] - Please follow up with your Primary Care Physician in: 1-2 weeks Please Follow Up With: Psychiatry When: 1-2 weeks Disposition: Home Minutes spent on discharge:: 35 Patient Condition:: Stable Medical Necessity - Tobacco Use Smoking Status: Former smoker Tobacco Use: Non-smoker Meaningful Use Info Meaningful Use Diagnoses (Choose all that apply): None applicable
--- NOTE | 2018-05-10 14:28 | DS.PCM_ITS ---
Discharge Date and Diagnosis Date of Admission: 05/09/18 Date of Discharge: 05/10/18 - Primary Discharge Diagnosis Syncope, nonphysiologic Atypical chest pain-musculoskeletal Type 2 diabetes with mild hypoglycemia Sleep apnea Coronary artery disease History of CVA Obesity Chronic hypoxic respiratory failure Recent community-acquired pneumonia Hypertension Pacemaker - Secondary Discharge Diagnosis Chronic Problems Hyperlipidemia (Chronic) Hypertension (Chronic) Obesity (Chronic) Pacemaker (Chronic) 2001 Weakness of limb (Chronic) Left-sided weakness, chronic Chronic respiratory failure (Chronic) baseline 3L continuously CAD (coronary artery disease) (Chronic) Cardiac catheterization 02/24/2017?normal LV size should not, EF 55%, [place] multivessel CAD, patent SVG to diagonal 1, OM 2, and RCA, MASON to LAD previously reported as atretic/nonfunctional (not reevaluated at that time), advised medical therapy DM type 2 (diabetes mellitus, type 2) (Chronic) History of smoking (Chronic) Obstructive sleep apnea (Chronic) Seizure (Chronic) left sided tingling left body (Chronic) S/P CABG (coronary artery bypass graft) (Chronic) S/P PTCA (percutaneous transluminal coronary angioplasty) (Chronic) CVA (cerebral vascular accident) (Chronic) Residual left-sided weakness Hospital Course and Treatment Imaging Results: CT/Brain/Head without Contrast IMPRESSION: Chronic involutional changes of the brain. RAD/Chest PA and Lateral IMPRESSION: Stable appearance of the chest with no new or acute finding. CT/CTA Neck W/WO Contrast IMPRESSION: Normal bilateral cervical carotid and vertebral arteries. CT/CTA Head W/WO Contrast IMPRESSION: Normal unenhanced and enhanced CT scan of the brain. No acute findings in the brain Operations: None Procedures: None Summary of Care Provided: Hospital course: The patient is a 67 year old M with a past medical history of multiple workups for syncope and chest pain which have been negative in the past, also with a history of CVA, CAD, unclear hx of seizure, who had multiple syncopal episodes the day prior and right-sided chest pain. In the ER he stated he has had ongoing syncopal episodes were 17 years and that he has never had an clear diagnosis. He had recently been treated for pneumonia and had been taking doxycycline as an outpatient. He had a heart catheterization in 2018 that was negative. He was admitted for syncope. CT of the brain was negative. MRI could not be at obtain secondary to pacemaker. Pacemaker was interrogated and was negative. Bloodwork was unremarkable. CTA of the head and neck were obtained and were negative. Urinalysis was negative. Troponin was negative. He was mildly hypoglycemic at admission, however his oral intake status was unclear at that time. He was started on his normal insulin doses and his blood sugars were well controlled controlled and his hypoglycemia resolved on its own. He had no events on telemetry. BNP was negative. With his workup now being negative, and multiple negative workups in the past, it seems likely that there is a psychiatric component to his events. He has been evaluated by neurology here in the past and has been noted to have nonphysiologic symptoms, with it noted to be suspected secondary to stressors. He has had multiple EEGs negative for seizure. As he remained in stable condition, he was discharged home on his prior home medications. He was advised to follow-up with his PCP in 1-2 weeks. I also advised him to follow-up with psychiatry in 1-2 weeks, he will need to pursue this at the [place]. This patient was seen by Sridhar Mullins PA-C under the supervision of Doctor Kevin. [] - Physical Exam General: Alert, Oriented x3, Cooperative HEENT: Atraumatic, PERRLA, EOMI, Normocephalic Neck: Supple, No JVD, Negative Carotid Bruits Lungs: Clear to auscultation, Normal air movement Cardiovascular: Regular rate, No murmurs Abdomen: Bowel Sounds Present, Soft, Non Tender Extremities: No edema, Capillary Refill Less than 3 Seconds Skin: No rashes, No breakdown Musculoskeletal: No Tenderness to Palpation of Joints or Extremities Neurological: Cranial nerves II-XII grossly intact Psych/Mental Status: Normal Affect, Appropriate Vital Signs Temp Pulse Resp BP Pulse Ox 98.2 F 60 18 121/50 H 94 05/10/18 09:45 05/10/18 11:00 05/10/18 09:45 05/10/18 09:45 05/10/18 09:45 Oxygen Flow Rate (L/min) 3 Oxygen Delivery Method Bi-pap Weight: 255 lb 8.252 oz Body Mass Index (BMI) 36.6 Finger Stick Blood Glucose 81 Intake and Output for Last 24 Hours 05/08/18 05/09/18 05/10/18 23:59 23:59 23:59 Intake Total 240 / 240 460 / 460 Output Total 225 / 225 275 / 275 Balance 185 / 185 Laboratory Tests Past 24 Hrs 05/09/18 05/09/18 05/09/18 13:05 16:35 17:10 Troponin I < 0.015 B-Natriuretic Peptide 54.8 Urine Color Yellow Urine Clarity Cloudy Urine pH 6.0 Ur Specific [place] 1.025 Urine Protein 30 H Urine Glucose (UA) 1000 H Urine Ketones 5 H Urine Occult Blood Negative Urine Nitrite Negative Urine Bilirubin Negative Urine Urobilinogen Normal Ur Leukocyte Esterase 25 H Urine RBC 0 SEEN Urine WBC 0-5 SEEN Ur Squamous Epith Cells 0-5 SEEN Urine Bacteria RARE Urine Mucus 0 SEEN 05/09/18 21:03 Troponin I < 0.015 B-Natriuretic Peptide Urine Color Urine Clarity Urine pH Ur Specific [place] Urine Protein Urine Glucose (UA) Urine Ketones Urine Occult Blood Urine Nitrite Urine Bilirubin Urine Urobilinogen Ur Leukocyte Esterase Urine RBC Urine WBC Ur Squamous Epith Cells Urine Bacteria Urine Mucus POC Glucose 05/10/18 05/10/18 05/10/18 10:57 06:41 00:37 POC Glucose 178 H 160 H 91 05/09/18 05/09/18 22:04 21:46 POC Glucose 72 65 L Discharge Diet: Low fat/ Low Cholesterol, 1800 Calorie Control Diet, 2000 mg Sodium Diet Discharge Activity: May Not Drive Home Medications: Medications to take at Discharge Atenolol [Tenormin (beta theron)] 100 mg PO DAILY 08/09/16 Atorvastatin Calcium [Lipitor] 80 mg PO QHS 08/09/16 Finasteride [Proscar] 5 mg PO DAILY 08/09/16 Furosemide [Lasix] 20 mg PO DAILY 08/09/16 Multivit with Minerals/Lutein [Pub Multivitamin 50 Plus Tab] 1 tab PO DAILY 08/09/16 Pantoprazole Sodium [Protonix] 40 mg PO BID 08/09/16 Tamsulosin HCl [Flomax] 0.8 mg PO QHS 08/09/16 Clopidogrel Bisulfate [Clopidogrel] 75 mg PO DAILY 12/25/16 Ketoconazole 1 applicatio TOPICAL DAILY PRN PRN 02/22/17 Aspirin E.C. [Ecotrin] 81 mg PO DAILY@0800 09/01/17 Cholecalciferol (VIT D3) [Vitamin D3] 3,000 unit PO DAILY 09/01/17 Escitalopram Oxalate [Lexapro] 10 mg PO DAILY 09/01/17 Insulin Regular, Human [Humulin R U-500 Kwikpen] See Protocol SQ TIDCM 09/01/17 Ranolazine [Ranexa] 1,000 mg PO BID 09/01/17 Budesonide/Formoterol Fumarate [Symbicort 160-4.5 Mcg Inhaler] 6 gm IH BID PRN 02/26/18 Doxycycline 100 mg PO BID #20 capsule 05/04/18 Primary Care Physician: [facility] [Primary Care Provider] - Please follow up with your Primary Care Physician in: 1-2 weeks Please Follow Up With: Psychiatry When: 1-2 weeks Disposition: Home Minutes spent on discharge:: 35 Patient Condition:: Stable Medical Necessity - Tobacco Use Smoking Status: Former smoker Tobacco Use: Non-smoker Meaningful Use Info Meaningful Use Diagnoses (Choose all that apply): None applicable
== END 2018-05-10 11:30 | disposition home or self-care (01) ==
LOC: ED 14:16 → PCU 18:03
PROVIDERS: Family Medicine; Admitting Provider Internal Medicine; Emergency Provider Emergency Medicine; Referring Provider Internal Medicine; Visit Provider Family Medicine
DX: R07.89 Other chest pain (principal); R55 Syncope and collapse; G47.33 Obstructive sleep apnea (adult) (pediatric); I25.10 Atherosclerotic heart disease of native coronary artery without angina pectoris; E78.5 Hyperlipidemia, unspecified; I10 Essential (primary) hypertension; I69.354 Hemiplegia and hemiparesis following cerebral infarction affecting left non-dominant side; E11.649 Type 2 diabetes mellitus with hypoglycemia without coma; J96.10 Chronic respiratory failure, unspecified whether with hypoxia or hypercapnia; E66.9 Obesity, unspecified; Z99.81 Dependence on supplemental oxygen; Z79.899 Other long term (current) drug therapy; Z79.02 Long term (current) use of antithrombotics/antiplatelets; Z87.891 Personal history of nicotine dependence; Z68.36 Body mass index [BMI] 36.0-36.9, adult; Z71.3 Dietary counseling and surveillance; Z95.0 Presence of cardiac pacemaker; Z95.1 Presence of aortocoronary bypass graft; R29.714 NIHSS score 14; R06.02 Shortness of breath
CPT/HCPCS: 36415; 70450; 70496; 70498; 71046; 80048; 81001; 82962; 83880; 84484; 85025; 93005; 94640; 96374; 96376; 99218; 99285; Q9967; A4216; G0378

== ENCOUNTER 2018-05-24 02:27 | Emergency (ER) | payer OTHER, SELFPAY ==
[2018-05-10 07:38] VITALS: BMI 36.6
[2018-05-24 02:27] VITALS: BP 150/77; PULSE 59; RESP 22; TEMP 37; O2SAT 97; BMI 38.5
[2018-05-24 02:49] VITALS: BP 150/77; PULSE 59; RESP 22; TEMP 37; O2SAT 97
[2018-05-24 02:54] LABS: Mucous, Urine 0 SEEN /hpf (<or=2+)
[2018-05-24 02:59] LABS: Color, Urine Yellow (Yellow); Glucose, Dipstick 1000 mg/dl (Normal); Ketone-Dipstick 5 mg/dl (Negative); Leukocyte Esterase-Dipstick 500 /ul (Negative); Nitrite-Dipstick Positive (Negative); Occult Blood-Urine 150 /ul (Negative); Protein-Dipstick 100 mg/dl (Negative); Specific Gravity, Urine 1.015 (1.002-1.030); Urine Bilirubin Dipstick Negative (Negative); Urine Clarity Cloudy (Clear); Urine Urobilinogen Normal (Normal); Urine pH 6.5 (5.0 - 8.0)
[2018-05-24 03:05] LABS: Bacteria 2+ /hpf (None Seen); Red Blood Cells-Urine 0-5 SEEN /hpf (0-5); Squamous Epithelial Cells - UA 0-5 SEEN /hpf (0-5); White Blood Cells >100 SEEN /hpf (0-5)
--- NOTE | 2018-05-24 03:50 | ED.VISSUMM ---
- ER Visit Summary Date of Service: 05/24/18 Chief Complaint: Difficulty urinating. History of Present Illness: The patient is a 67 M history of BPH. Also history of CAD, PR and COPD on oxygen. Prior cardiac stent. Diabetic with hypertension. Patient states he has cloudy urine with strong smell. And at times has trouble initiating a stream. He has been able to urinate however though. Denies any fever. He has had a catheter in the past but not recently. He denies any prior prostate or bladder surgeries. Physical Examination: Older male no acute distress. Accompanied by family. Vital signs are stable and afebrile. HEENT exam unremarkable. Lungs clear to auscultation. Heart regular rhythm no murmur. Abdomen is soft and nontender. Nondistended normal bowel sounds. Sternal exam is unremarkable. Nontender. Descended testicles. Nontender. No scrotal swelling. No mass. No discharge. From the urethra. Extremities moves all 4. Calves nontender. Neurologically is awake alert with no focal motor deficits. Test Results: Bladder scan showed less than 150. A Pearson catheter was placed and he only had about 150 of urine. I discussed with him and told him I do not think he is in urinary retention and remove the catheter and he was comfortable with that plan. Urinalysis was consistent with UTI with greater than 100 white cells, positive nitrates and 2+ bacteria. A urine culture was sent. Emergency Department Course and Treatment: Patient be treated for UTI. He is able to urinate and was fine with us removing the catheter. Treatment Plan: Keflex 4 times daily for 10 days. Urine culture. He has appointment to follow-up with the MD. He knows to return if worse. Disposition: Discharge Impression: Acute UTI (cystitis) History of BPH History of diabetes This note was generated with [employer] dictation software. It may contain incorrect words, spelling, and punctuation that were not noted in review of the chart prior to signing ED Disposition - Plan for ED Patient: Referrals: [facility] [Primary Care Provider] -
--- NOTE | 2018-05-24 03:53 | ED.DCSUM_ITS ---
- ER Visit Summary Date of Service: 05/24/18 Chief Complaint: Difficulty urinating. History of Present Illness: The patient is a 67 M history of BPH. Also history of CAD, [place] and COPD on oxygen. Prior cardiac stent. Diabetic with hypertension. Patient states he has cloudy urine with strong smell. And at times has trouble initiating a stream. He has been able to urinate however though. Denies any fever. He has had a catheter in the past but not recently. He denies any prior prostate or bladder surgeries. Physical Examination: Older male no acute distress. Accompanied by family. Vital signs are stable and afebrile. HEENT exam unremarkable. Lungs clear to auscultation. Heart regular rhythm no murmur. Abdomen is soft and nontender. Nondistended normal bowel sounds. Sternal exam is unremarkable. Nontender. Descended testicles. Nontender. No scrotal swelling. No mass. No discharge. From the urethra. Extremities moves all 4. Calves nontender. Neurologically is awake alert with no focal motor deficits. Test Results: Bladder scan showed less than 150. A Pearson catheter was placed and he only had about 150 of urine. I discussed with him and told him I do not think he is in urinary retention and remove the catheter and he was comfortable with that plan. Urinalysis was consistent with UTI with greater than 100 white cells, positive nitrates and 2+ bacteria. A urine culture was sent. Emergency Department Course and Treatment: Patient be treated for UTI. He is able to urinate and was fine with us removing the catheter. Treatment Plan: Keflex 4 times daily for 10 days. Urine culture. He has appointment to follow-up with the [place]. He knows to return if worse. Disposition: Discharge Impression: Acute UTI (cystitis) History of BPH History of diabetes This note was generated with [employer] dictation software. It may contain incorrect words, spelling, and punctuation that were not noted in review of the chart prior to signing ED Disposition - Plan for ED Patient: Referrals: [facility] [Primary Care Provider] -
--- NOTE | 2018-05-24 03:53 | ED.DEP ---
ED Disposition - Plan for ED Patient: Disposition: Home or Assisted Living Instructions: ED UTI Cystitis Male Prescriptions: Cephalexin [Keflex] 500 mg PO Q6 #40 cap [facility] [Primary [facility]] - As soon as possible Additional Instructions: Plenty of water. [facility] Keflex 1 pill 4 times a day for 10 days for the bladder infection. We did a urine culture if we need to start another antibiotic we will let you know.
[2018-05-24] MEDS: Cephalexin 250 MG Capsule 500 MG PO (04:01)
[2018-05-24 04:02] VITALS: BP 137/79; PULSE 60; RESP 18; O2SAT 97
== END 2018-05-24 04:07 | disposition home or self-care (01) ==
PROVIDERS: Emergency Provider Emergency Medicine
DX: N30.00 Acute cystitis without hematuria (principal); N40.1 Benign prostatic hyperplasia with lower urinary tract symptoms; R39.12 Poor urinary stream; I25.10 Atherosclerotic heart disease of native coronary artery without angina pectoris; I25.2 Old myocardial infarction; I10 Essential (primary) hypertension; J44.9 Chronic obstructive pulmonary disease, unspecified; E11.9 Type 2 diabetes mellitus without complications; Z95.1 Presence of aortocoronary bypass graft; Z95.5 Presence of coronary angioplasty implant and graft; Z99.81 Dependence on supplemental oxygen; Z79.4 Long term (current) use of insulin; Z79.82 Long term (current) use of aspirin; Z79.899 Other long term (current) drug therapy
CPT/HCPCS: 81001; 87077; 87086; 87088; 87186; 99283

== ENCOUNTER 2018-05-29 10:33 | Emergency (ER) | payer OTHER, SELFPAY ==
[2018-05-29 10:34] VITALS: BP 161/79; PULSE 60; RESP 20; TEMP 36.9; O2SAT 94
--- NOTE | 2018-05-29 10:43 | EKG12_ITS ---
Test Reason : CP Blood Pressure : / mmHG Vent. Rate : 060 BPM Atrial Rate : 241 BPM P-R Int : 274 ms QRS Dur : 120 ms QT Int : 476 ms P-R-T Axes : 080 -36 070 degrees QTc Int : 476 ms Atrial-paced rhythm with prolonged AV conduction Left axis deviation Non-specific intra-ventricular conduction delay Nonspecific ST and T wave abnormality Abnormal ECG Confirmed by PADILLA GUALLPA, CALI ([id number]), scientific publications editor MODESTA FISHMAN ([id number]) on 06/01/2018 4:11:36 PM Referred By: OSMAN Confirmed By:CALI CAUSEY MD
--- NOTE | 2018-05-29 10:43 | ED.RN ---
PT STATES HE HAS PAIN IN RLQ AND GOES INTO HIS CHEST.
[2018-05-29] MEDS: 0.9% Normal Saline 1,000 ML 150 ML IV (10:54)
[2018-05-29] MEDS: Ondansetron 4 MG/2 ML Vial IV (10:55)
[2018-05-29] MEDS: Morphine 4 MG/ML Syringe IV (10:55)
[2018-05-29 11:11] LABS: Bacteria 0 SEEN /hpf (None Seen); Mucous, Urine 0 SEEN /hpf (<or=2+)
[2018-05-29 11:13] LABS: Absolute Lymphocyte Count 0.87 X10^3/ul (0.83-4.51); Absolute Neutrophil Count 3.2 X10^3/uL (2.0-7.7); Basophil# 0.01 X10^3/uL; Basophil% 0.2 % (0-1); Eosinophils% 2.2 % (0-5); Hematocrit 40.7 % (40-54); Hemoglobin 13.8 g/dl (13.0-16.5); Lymphocyte # 0.87 X10^3/ul (4.0); Lymphocyte % 19.6 % (19-41); Mean Corp Hgb Conc 33.9 g/gl (32-36); Mean Corpuscular Hgb 32.7 pg (27.0-32.0); Mean Corpuscular Volume 96.4 fL (80-94); Mean Platelet Vol. 10.6 fl (6.2-12.0); Monocyte# 0.29 X10^3/uL; Monocyte% 6.5 % (0-10); Neutrophil # 3.16 X10^3/uL (2.7-7.7); Neutrophil % 71.1 % (47-70); Platelet Count 144 K/mm3 (150-450); RBC Distribution Width CV 14.2 % (11.6-14.6); Red Blood Count 4.22 M/mm3 (4.6-6.2); White Blood Count 4.5 K/mm3 (4.4-11.0)
[2018-05-29 11:17] LABS: Color, Urine Yellow (Yellow); Glucose, Dipstick 250 mg/dl (Normal); Ketone-Dipstick 5 mg/dl (Negative); Leukocyte Esterase-Dipstick 100 /ul (Negative); Nitrite-Dipstick Negative (Negative); Occult Blood-Urine 10 /ul (Negative); Protein-Dipstick 30 mg/dl (Negative); Specific Gravity, Urine 1.015 (1.002-1.030); Urine Bilirubin Dipstick Negative (Negative); Urine Clarity Clear (Clear); Urine Urobilinogen Normal (Normal)
[2018-05-29 11:19] LABS: POSITIVE COUNT NO; POSITIVE DIFFERENTIAL NO; POSITIVE MORPHOLOGY NO
[2018-05-29 11:25] LABS: Red Blood Cells-Urine 0-5 SEEN /hpf (0-5); Squamous Epithelial Cells - UA 0-5 SEEN /hpf (0-5); White Blood Cells 0-5 SEEN /hpf (0-5)
[2018-05-29 11:29] LABS: D-Dimer Quantitative (DVT/PE) 0.47 FEU/ug/m (0.27-0.49)
[2018-05-29 11:33] LABS: Anion Gap 7 (5-15); BUN 17 mg/dL (7-18); BUN/Creat Ratio 18.8 RATIO (10-20); Calcium,Total 8.4 mg/dL (8.5-10.1); Chloride 104 mmol/L (98-107); Creatinine, Serum 0.91 mg/dL (0.70-1.30); EST Glomerular Filtration Rate 89 mL/min (>60); Est Glom Filt Rate - Afr Amer 107 mL/min (>60); Estimated Creatinine Clearance 132.03 ml/min; Glucose 223 mg/dL (74-106); Potassium 3.9 mmol/L (3.5-5.1); Sodium Level 141 mmol/L (136-145)
--- NOTE | 2018-05-29 11:45 | CT_ITS ---
STUDY: CT ABDOMEN AND PELVIS WITH CONTRAST REASON FOR EXAM: Male, 67 years old. Abdominal pain with chest pain for 2 days RADIATION DOSAGE (If Supplied By Facility): CTDIvol = ( 21.8 ) mGy, DLP = ( 1726.92 ) mGycm TECHNIQUE: Transaxial images were obtained from the dome of the diaphragm to the symphysis pubis without oral contrast. 100 IV Isovue 300 was administered. Sagittal and coronal images were reconstructed. Individualized dose optimization techniques were used for this CT. COMPARISON: 08/21/2016 FINDINGS: The visualized lung bases are unremarkable. Cardiac conduction device partially visualized. Sternotomy wires noted. There is decreased attenuation of the liver consistent with steatosis. There are surgical clips in the gallbladder fossa consistent with a prior cholecystectomy. Normal spleen. Normal pancreas. Normal bilateral adrenal glands. Simple right renal cyst is stable. No hydronephrosis of either kidney. Age-related perinephric stranding is similar. Stomach is nondistended. There is a small duodenal diverticulum but no small bowel wall thickening. There are multiple colonic diverticula consistent with diverticulosis. The appendix is visualized and appears normal. There is diffuse atherosclerotic calcification of the abdominal aorta, without a demonstrated aneurysm. Normal inferior vena cava. Normal retroperitoneum. Normal urinary bladder. There are prostatic calcifications. Small nodule of the lower anterior abdominal wall subcutaneous tissues measures 8 mm, slightly larger low density suggesting sebaceous cyst. There are diffuse degenerative changes of the visualized lumbar spine. CT/Abdomen/Pelvis W IV Cont ONLY IMPRESSION: 1. No acute inflammatory process. 2. Stable chronic changes, as above. Electronically Signed: Karlos Cabrera MD at 13:14 EDT , Service support ,
--- NOTE | 2018-05-29 11:45 | ED.RN ---
lab resulted 2.2, physician notified
[2018-05-29 11:46] LABS: Lactic Acid 2.2 mmol/L (0.4-2.0)
[2018-05-29 11:55] VITALS: BP 148/73; PULSE 60; RESP 16; O2SAT 95
[2018-05-29 13:00] VITALS: BP 140/77; PULSE 60; RESP 18; O2SAT 98
--- NOTE | 2018-05-29 13:33 | RAD_ITS ---
STUDY: X-RAY CHEST REASON FOR EXAM: Male, 67 years old. Chest pain TECHNIQUE: AP COMPARISON: 05/09/2018 FINDINGS: The lungs are clear and expanded. There is no demonstrated pleural abnormality. There is moderate cardiac enlargement. Sternal wires and mediastinal surgical clips compatible with prior CABG. Two lead cardiac conduction device is seen via the left subclavian vein with lead tips projecting over the right atrium and right ventricle, respectively. Normal visualized pulmonary arteries. Normal visualized aortic arch and descending thoracic aorta. There is demineralization of the osseous structures. Normal visualized ribs, clavicles, and shoulders. There is no demonstrated abnormality of the visualized soft tissue structures of the upper abdomen. RAD/Chest 1 View (Portable) IMPRESSION: Stable, nonacute portable x-ray examination of the chest. Electronically Signed: Karlos Cabrera MD at 14:13 EDT , Service support ,
[2018-05-29 14:20] VITALS: BP 146/82; PULSE 62; RESP 16; O2SAT 97
--- NOTE | 2018-05-29 14:36 | ED.VISSUMM ---
- ER Visit Summary Date of Service: 05/29/18 Chief Complaint: [Abdominal pain and chest pain] History of Present Illness: The patient is a 67 M [presents the emergency department complaint of pain that starts in his lower abdomen and radiates up into his right chest. Patient states the symptoms have been there for 2 days. Patient had some sweats. He denies fever. He denies recent travel. Patient currently being treated for urinary tract infection with Keflex. Patient does complain of a slight headache. He denies any falls or head injuries. Patient does have a history of coronary artery disease, diabetes, hypertension, high cholesterol, and seizure disorder. Past surgical history includes a cholecystectomy and prior CABG.] Physical Examination: [HEENT-PERRLA, EOMI. Cranial nerves II through XII grossly intact. TMs clear. Mucous membranes moist. No adenopathy. Cardiovascular-regular rate and rhythm without murmur or ectopy Lungs-clear to auscultation, chest wall stable without crepitus or subcu emphysema Abdomen-normoactive bowel sounds and soft. Patient has diffuse tenderness palpation over the right lower quadrant and right upper quadrant. There is no rebound, rigidity, or perineal signs. Extremities-intact ?4, normal range of motion, normal pulses, atraumatic] Test Results: [EKG obtained arrival showed a atrially paced rhythm. Patient had some nonspecific ST changes noted. CBC with differential showed a white count of 4.5, heme globin 13.8, hematocrit 41, platelets 144. Chemistries unremarkable. Urinalysis was unremarkable. Troponin was less than 0.015. D-dimer was normal at 0.47. Lactate was slightly elevated 2.2.] CT scan of the abdomen and pelvis showed nothing acute. Chest x-ray showed nothing acute. Emergency Department Course and Treatment: [Patient was medicated with morphine and Zofran for his pain. ] Treatment Plan: [Patient will be given a prescription for [place] for pain. I do not feel patient to have an acute coronary syndrome. ] Disposition: [Discharged home in stable condition] Impression: [Abdominal pain Chest pain-atypical ] This note was generated with [employer] dictation software. It may contain incorrect words, spelling, and punctuation that were not noted in review of the chart prior to signing ED Disposition - Plan for ED Patient: [facility] [Primary [facility] Provider] -
--- NOTE | 2018-05-29 14:39 | ED.DCSUM_ITS ---
- ER Visit Summary Date of Service: 05/29/18 Chief Complaint: [Abdominal pain and chest pain] History of Present Illness: The patient is a 67 M [presents the emergency department complaint of pain that starts in his lower abdomen and radiates up into his right chest. Patient states the symptoms have been there for 2 days. Patient had some sweats. He denies fever. He denies recent travel. Patient currently being treated for urinary tract infection with Keflex. Patient does complain of a slight headache. He denies any falls or head injuries. Patient does have a history of coronary artery disease, diabetes, hypertension, high cholesterol, and seizure disorder. Past surgical history includes a cholecystectomy and prior CABG.] Physical Examination: [HEENT-PERRLA, EOMI. Cranial nerves II through XII grossly intact. TMs clear. Mucous membranes moist. No adenopathy. Cardiovascular-regular rate and rhythm without murmur or ectopy Lungs-clear to auscultation, chest wall stable without crepitus or subcu emphysema Abdomen-normoactive bowel sounds and soft. Patient has diffuse tenderness palpation over the right lower quadrant and right upper quadrant. There is no rebound, rigidity, or perineal signs. Extremities-intact ?4, normal range of motion, normal pulses, atraumatic] Test Results: [EKG obtained arrival showed a atrially paced rhythm. Patient had some nonspecific ST changes noted. CBC with differential showed a white count of 4.5, heme globin 13.8, hematocrit 41, platelets 144. Chemistries unremarkable. Urinalysis was unremarkable. Troponin was less than 0.015. D- dimer was normal at 0.47. Lactate was slightly elevated 2.2.] CT scan of the abdomen and pelvis showed nothing acute. Chest x-ray showed nothing acute. Emergency Department Course and Treatment: [Patient was medicated with morphine and Zofran for his pain. ] Treatment Plan: [Patient will be given a prescription for [place] for pain. I do not feel patient to have an acute coronary syndrome. ] Disposition: [Discharged home in stable condition] Impression: [Abdominal pain Chest pain-atypical ] This note was generated with [employer] dictation software. It may contain incorrect words, spelling, and punctuation that were not noted in review of the chart prior to signing ED Disposition - Plan for ED Patient: [facility] [Primary Care Provider] -
--- NOTE | 2018-05-29 14:41 | DCINST.ED_ITS ---
ED Disposition - Plan for ED Patient: Instructions: ED Chest Pain Atypical Unkn Cause, ED Abdominal Pain Unkn Cause Male Prescriptions: Hydrocodone Bitart/Apap 5-325 [[place] 5MG-325MG] 1 tab PO Q4H PRN PRN 2 Days #10 tab PRN Reason: Pain [facility]errals[facility] [Primary [facility]] - 3-5 Days
[2018-05-29 14:51] LABS: Reflex Lactate? Y
== END 2018-05-29 14:55 | disposition home or self-care (01) ==
PROVIDERS: Emergency Provider Emergency Medicine
DX: R10.9 Unspecified abdominal pain (principal); R07.89 Other chest pain; R19.7 Diarrhea, unspecified; R05 Cough; E11.9 Type 2 diabetes mellitus without complications; I10 Essential (primary) hypertension; N39.0 Urinary tract infection, site not specified; E78.00 Pure hypercholesterolemia, unspecified; I25.10 Atherosclerotic heart disease of native coronary artery without angina pectoris; G40.909 Epilepsy, unspecified, not intractable, without status epilepticus; Z86.73 Personal history of transient ischemic attack (TIA), and cerebral infarction without residual deficits; Z95.1 Presence of aortocoronary bypass graft; Z90.49 Acquired absence of other specified parts of digestive tract
CPT/HCPCS: 71045; 74177; 80048; 81001; 83605; 84484; 85025; 85379; 93005; 96361; 96374; 96375; 99284; Q9967; A4216; J2405

== ENCOUNTER 2018-06-11 18:39 | Emergency (ER) | payer OTHER, SELFPAY ==
[2018-06-11] VITALS (9 sets, daily range): BP systolic 125–162; BP diastolic 66–88; PULSE 60–63; RESP 16–19; TEMP 36.7–36.8; O2SAT 95–98; BMI 47.5
--- NOTE | 2018-06-11 19:16 | EKG12_ITS ---
Test Reason : CP Blood Pressure : / mmHG Vent. Rate : 064 BPM Atrial Rate : 064 BPM P-R Int : 282 ms QRS Dur : 124 ms QT Int : 484 ms P-R-T Axes : 000 -23 081 degrees QTc Int : 499 ms Atrial-paced rhythm with prolonged AV conduction Non-specific intra-ventricular conduction delay Nonspecific ST abnormality Abnormal ECG Confirmed by YUNI GUALLPA, JOANNA ([id number]), editor managing newspaper NADINE FERRER ([id number]) on 06/14/2018 11:45:38 AM Referred By: JOSE Confirmed By:JOANNA MORRISSEY MD
--- NOTE | 2018-06-11 19:16 | CT_ITS ---
STUDY: CTA CHEST REASON FOR EXAM: Male, 68 years old. Dyspnea and syncope RADIATION DOSAGE (If Supplied By Facility): CTDIvol = ( 19.79 ) mGy, DLP = ( 486.72 ) mGycm TECHNIQUE: The examination was performed with the intravenous administration of 100ml IV Isovue 370. Post-processing of the angiographic images was performed, with multiplanar reformation and 3D reconstruction. Individualized dose optimization techniques were used for this CT. COMPARISON: May 04 2018 FINDINGS: Normal enhancement of the main pulmonary artery and right and left pulmonary arteries. Normal enhancement of the bilateral peripheral pulmonary arteries. There is no demonstrated pulmonary embolism. Normal thoracic aorta and visualized great vessels. There is no demonstrated aortic dissection. Heart is enlarged and there is mild coronary artery calcification Normal mediastinum. Normal hilar regions. Normal visualized trachea and bronchi. The lungs are well expanded. There is minor generalized interstitial thickening.. No focal infiltration or pulmonary nodule. Normal pleura. Status post median sternotomy and CABG. Dorsal spine demonstrates advanced arthritic change Nonspecific hepatomegaly Gallbladder has been removed surgically. CT/CTA Chest W/WO Contrast IMPRESSION: No evidence for pulmonary embolus Minor generalized interstitial thickening Postop changes status post CABG Electronically Signed: Zeb Segura MD at 20:22 EDT , Service support ,
--- NOTE | 2018-06-11 19:16 | CT_ITS ---
STUDY: CT BRAIN WITHOUT CONTRAST REASON FOR EXAM: Male, 68 years old. Syncope and headache RADIATION DOSAGE (If Supplied By Facility): CTDIvol = ( 44.99 ) mGy, DLP = ( 846.73 ) mGycm TECHNIQUE: Transaxial CT imaging of the brain was performed without administration of intravenous contrast material. Individualized dose optimization techniques were used for this CT. COMPARISON: May 10, 2018 FINDINGS: Normal soft tissue structures. Normal calvarium. Mild atrophy and periventricular white matter ischemic changes.. Normal basal ganglia and thalami. Normal brainstem. Normal cerebellum. There is no intracranial hemorrhage. There are no findings of an acute ischemic infarction. Normal visualized paranasal sinuses. No significant change since prior exam CT/Brain/Head without Contrast IMPRESSION: Mild atrophy and periventricular white matter ischemic changes No evidence for obstructive hydrocephalus mass or acute bleed Electronically Signed: Zeb Segura MD at 20:24 EDT , Service support ,
--- NOTE | 2018-06-11 19:18 | ED.VIS.GEN ---
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 He has a history of coronary artery disease with a couple stents, CABG, he is compliant with his aspirin and Plavix. 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 Tonight, he states that he came out of the bathroom and was walking through his house, and a couple minutes afterwards started feeling lightheaded followed by a syncopal episode without injury. When he awoke, he had chest discomfort across his chest, headache felt like my head was going to explode, and his speech is been slurred since then. He states later, the chest discomfort worsened, is still present and has not gone away since it started 3 hours ago. All of these symptoms have happened with his episodes in the past, he has been admitted for them and had test done nobody knows what is happening. That being the case, he has a pacemaker and is unable to have an MRI of his brain or other parts of his body. He has had these episodes many times in the past, sometimes he comes to the emergency department and other times he does not. He had a negative stress test 4 months ago, and a cath a year before that that showed no critical blockages. He does not drive. They state that the slurred speech and all of these other symptoms are typical after an episode like this, he states sometimes slurred speech last an hour and other times it will last an entire week. - Past Medical History (1) CAD (coronary artery disease) Status: Chronic Comment: Cardiac catheterization 02/24/2017?normal LV size should not, EF 55%, [place] multivessel CAD, patent SVG to diagonal 1, OM 2, and RCA, [place] to LAD previously reported as atretic/nonfunctional (not reevaluated at that time), advised medical therapy (2) CVA (cerebral vascular accident) Status: Chronic Comment: Residual left-sided weakness (3) Chronic respiratory failure Status: Chronic Comment: baseline 3L continuously (4) DM type 2 (diabetes mellitus, type 2) Status: Chronic (5) History of smoking Status: Chronic (6) Hyperlipidemia Status: Chronic (7) Hypertension Status: Chronic (8) Obstructive sleep apnea Status: Chronic (9) Left-sided weakness Status: Chronic Past Medical History - Allergies and Home Meds Allergies/Adverse Reactions: Allergies ezetimibe Allergy (Verified 05/09/18 13:05) Unknown Fish Containing Products Allergy (Verified 05/09/18 13:05) Unknown glyburide Allergy (Verified 05/09/18 13:05) Unknown lisinopril Allergy (Verified 05/09/18 13:05) Unknown metoprolol Allergy (Verified 05/09/18 13:05) Unknown simvastatin Allergy (Verified 05/09/18 13:05) Unknown Primary Care Physician: [facility] [Primary Care Provider] - 3-5 Days Surgical History: angioplasty, coronary bypass surgery, pacemaker implantation, - - cabg,cholecystectemy, hernia, left knee, 4 stents Lives: Spouse/ Significant Other Smoking Status: Former smoker Drugs: None - Family History Maternal Family History: Reports: Heart Disease Paternal Family History: Reports: Unknown Review of Systems General: Denies: Chills, Fever, Sweats Eyes: Denies: Visual changes - bilaterally, Diplopia ENT: Denies: Rhinorrhea, Sore throat Cardiovascular: Reports: Chest pain. Denies: Palpitations Respiratory: Reports: Dyspnea - chronic, no worse. Denies: Cough, Dyspnea on exertion Gastrointestinal: Denies: Abdominal pain, Nausea, Vomiting, Diarrhea, Melena, Hematochezia Genitourinary: Denies: Dysuria, Hematuria, Frequency Musculoskeletal: Denies: Back pain, Extremity Pain Skin: Denies: Rash, Wounds Neurological: Reports: Headache, Weakness - chronic left side since CVA, no changes today, - - slurred speech. Denies: Numbness Physical Exam Vital Signs/Narrative: Vital Signs Temp Pulse Resp BP Pulse Ox 06/11/18 18:57 61 16 128/82 H 95 06/11/18 18:40 98.3 F 60 16 162/81 H 97 Inital Vital Signs reviewed: Yes General: Well nourished, Well developed, Obese, No Acute Distress Head: Normocephalic, Atraumatic Eyes: Perrl, EOMI ENT: Moist mucous membranes, No rhinorrhea Neck: Supple, Nontender, No lymphadenopathy, No JVD Cardiovascular: Regular rate, Regular rhythm, No murmurs, Normal S1, Normal S2, - - equal bilat 2+/4 radial pulses Respiratory: No distress, CTA bilaterally, Chest nontender Abdomen: Soft, Nontender, Nondistended, Normal bowel sounds Back: Nontender, Normal Inspection Extremities: Nontender, Edema - 1+ BLE symmetric. Negative for: Calf Tenderness Skin: Normal color, No rash, No Trauma Neurological: Alert, Oriented x3, Cranial nerves II-XII grossly intact, Normal Sensation, Normal DTR - no ataxia., Weakness - LLE hits bed before 5 sec. no drift elsewhere. Total NIHSS 4., - - significant dysarthria. not aphasic. Psychological: Normal affect, Normal Mood Diagnostic/Tx/Re-eval Impressions Brain CT 06/11/18 19:16 IMPRESSION: Mild atrophy and periventricular white matter ischemic changes No evidence for obstructive hydrocephalus mass or acute bleed Electronically Signed: Zeb Segura MD at 20:24 EDT , Service support , Chest CTA 06/11/18 19:16 IMPRESSION: No evidence for pulmonary embolus Minor generalized interstitial thickening Postop changes status post CABG Electronically Signed: Zeb Segura MD at 20:22 EDT , Service support , 06/11/18 19:16 Brain/Head without Contrast [CT] Stat CTA Chest W/WO Contrast [CT] Stat Laboratory Results 06/11/18 06/11/18 19:00 19:00 WBC 5.9 RBC 4.14 L Hgb 13.7 Hct 40.2 MCV 97.1 H MCH 33.1 H MCHC 34.1 RDW 14.5 RDW Differential 51.4 H Plt Count 158 MPV 10.0 Immature Gran % (Auto) 0.000 Neut % (Auto) 70.4 H Lymph % (Auto) 19.3 [place] % (Auto) 8.4 Eos % (Auto) 1.7 Baso % (Auto) 0.2 Absolute Neuts (auto) 4.1 Absolute Lymphs (auto) 1.13 Total Counted Not Reportable Sodium 143 Potassium 3.7 Chloride 105 Carbon Dioxide 30.0 Anion Gap 8 BUN 26 H Creatinine 1.20 Estim Creat Clear Calc 45.50 Est GFR (MDRD) Af Amer 77 Est GFR (MDRD) Non-Af 64 BUN/Creatinine Ratio 21.7 H Glucose 155 H Calcium 8.5 Troponin I < 0.015 - Rhythm Strip Rhythm Strip: atrial pacing Rate: 65 Ectopy: None - EKG Initial EKG Interpretation: - - Atrial pace and capture, 64. poor R-wave progression. LAD. NSIVCD. Prior: Unchanged - 05/29/18 - Medical Decision Making CT of the head was negative given his syncope and headache, and CT angiography of the chest shows no PE, he has not been shown to have one in the past with this test. Labs were showing mild chronic renal insufficiency, that is stable. His troponin is negative. His EKG shows no acute injury. On reevaluation after nitroglycerin which did not seem to do much and then morphine, his chest is feeling much better and he still has the slurred speech. He has no other lateralizing neurologic findings. He prefers to go home since there are no other tests that can be done here. Therefore I obtained a 3-hour repeat troponin and it is negative as well. He has had prior EEGs that are unremarkable, tilt table test that are negative, as well as Holter monitors although it has been a while for the latter. I think it is reasonable for him to follow-up with his heart doctor and neurologist, I do not think he is having unstable angina. They are comfortable with this plan. ED Disposition - Plan for ED Patient: Disposition: Home or Assisted Living Diagnosis: Chest pain, unspecified, Recurrent syncope, Dysarthria Instructions: ED Chest Pain NonCardiac, ED Fainting Unkn Cause [facility] [[facility] - 3-5 Days
--- NOTE | 2018-06-11 19:25 | ED.DCSUM_ITS ---
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 He has a history of coronary artery disease with a couple stents, CABG, he is compliant with his aspirin and Plavix. 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 Tonight, he states that he came out of the bathroom and was walking through his house, and a couple minutes afterwards started feeling lightheaded followed by a syncopal episode without injury. When he awoke, he had chest discomfort across his chest, headache felt like my head was going to explode, and his speech is been slurred since then. He states later, the chest discomfort worsened, is still present and has not gone away since it started 3 hours ago. All of these symptoms have happened with his episodes in the past, he has been admitted for them and had test done nobody knows what is happening. That being the case, he has a pacemaker and is unable to have an MRI of his brain or other parts of his body. He has had these episodes many times in the past, sometimes he comes to the emergency department and other times he does not. He had a negative stress test 4 months ago, and a cath a year before that that showed no critical blockages. He does not drive. They state that the slurred speech and all of these other symptoms are typical after an episode like this, he states sometimes slurred speech last an hour and other times it will last an entire week. - Past Medical History (1) CAD (coronary artery disease) Status: Chronic Comment: Cardiac catheterization 02/24/2017?normal LV size should not, EF 55%, [place] multivessel CAD, patent SVG to diagonal 1, OM 2, and RCA, [place] to LAD previously reported as atretic/nonfunctional (not reevaluated at that time), advised medical therapy (2) CVA (cerebral vascular accident) Status: Chronic Comment: Residual left-sided weakness (3) Chronic respiratory failure Status: Chronic Comment: baseline 3L continuously (4) DM type 2 (diabetes mellitus, type 2) Status: Chronic (5) History of smoking Status: Chronic (6) Hyperlipidemia Status: Chronic (7) Hypertension Status: Chronic (8) Obstructive sleep apnea Status: Chronic (9) Left-sided weakness Status: Chronic Past Medical History - Allergies and Home Meds Allergies/Adverse Reactions: Allergies ezetimibe Allergy (Verified 05/09/18 13:05) Unknown Fish Containing Products Allergy (Verified 05/09/18 13:05) Unknown glyburide Allergy (Verified 05/09/18 13:05) Unknown lisinopril Allergy (Verified 05/09/18 13:05) Unknown metoprolol Allergy (Verified 05/09/18 13:05) Unknown simvastatin Allergy (Verified 05/09/18 13:05) Unknown Primary Care Physician: [facility],[place] [Primary Care Provider] - 3-5 Days Surgical History: angioplasty, coronary bypass surgery, pacemaker implantation, - - cabg,cholecystectemy, hernia, left knee, 4 stents Lives: Spouse/ Significant Other Smoking Status: Former smoker Drugs: None - Family History Maternal Family History: Reports: Heart Disease Paternal Family History: Reports: Unknown Review of Systems General: Denies: Chills, Fever, Sweats Eyes: Denies: Visual changes - bilaterally, Diplopia ENT: Denies: Rhinorrhea, Sore throat Cardiovascular: Reports: Chest pain. Denies: Palpitations Respiratory: Reports: Dyspnea - chronic, no worse. Denies: Cough, Dyspnea on exertion Gastrointestinal: Denies: Abdominal pain, Nausea, Vomiting, Diarrhea, Melena, Hematochezia Genitourinary: Denies: Dysuria, Hematuria, Frequency Musculoskeletal: Denies: Back pain, Extremity Pain Skin: Denies: Rash, Wounds Neurological: Reports: Headache, Weakness - chronic left side since CVA, no changes today, - - slurred speech. Denies: Numbness Physical Exam Vital Signs/Narrative: Vital Signs Temp Pulse Resp BP Pulse Ox 06/11/18 18:57 61 16 128/82 H 95 06/11/18 18:40 98.3 F 60 16 162/81 H 97 Inital Vital Signs reviewed: Yes General: Well nourished, Well developed, Obese, No Acute Distress Head: Normocephalic, Atraumatic Eyes: Perrl, EOMI ENT: Moist mucous membranes, No rhinorrhea Neck: Supple, Nontender, No lymphadenopathy, No JVD Cardiovascular: Regular rate, Regular rhythm, No murmurs, Normal S1, Normal S2, - - equal bilat 2+/4 radial pulses Respiratory: No distress, CTA bilaterally, Chest nontender Abdomen: Soft, Nontender, Nondistended, Normal bowel sounds Back: Nontender, Normal Inspection Extremities: Nontender, Edema - 1+ BLE symmetric. Negative for: Calf Tenderness Skin: Normal color, No rash, No Trauma Neurological: Alert, Oriented x3, Cranial nerves II-XII grossly intact, Normal Sensation, Normal DTR - no ataxia., Weakness - LLE hits bed before 5 sec. no drift elsewhere. Total NIHSS 4., - - significant dysarthria. not aphasic. Psychological: Normal affect, Normal Mood Diagnostic/Tx/Re-eval Impressions Brain CT 06/11/18 19:16 IMPRESSION: Mild atrophy and periventricular white matter ischemic changes No evidence for obstructive hydrocephalus mass or acute bleed Electronically Signed: Zeb Segura MD at 20:24 EDT , Service support , Chest CTA 06/11/18 19:16 IMPRESSION: No evidence for pulmonary embolus Minor generalized interstitial thickening Postop changes status post CABG Electronically Signed: Zeb Segura MD at 20:22 EDT , Service support , 06/11/18 19:16 Brain/Head without Contrast [CT] Stat CTA Chest W/WO Contrast [CT] Stat Laboratory Results 06/11/18 06/11/18 19:00 19:00 WBC 5.9 RBC 4.14 L Hgb 13.7 Hct 40.2 MCV 97.1 H MCH 33.1 H MCHC 34.1 RDW 14.5 RDW Differential 51.4 H Plt Count 158 MPV 10.0 Immature Gran % (Auto) 0.000 Neut % (Auto) 70.4 H Lymph % (Auto) 19.3 [place] % (Auto) 8.4 Eos % (Auto) 1.7 Baso % (Auto) 0.2 Absolute Neuts (auto) 4.1 Absolute Lymphs (auto) 1.13 Total Counted Not Reportable Sodium 143 Potassium 3.7 Chloride 105 Carbon Dioxide 30.0 Anion Gap 8 BUN 26 H Creatinine 1.20 Estim Creat Clear Calc 45.50 Est GFR (MDRD) Af Amer 77 Est GFR (MDRD) Non-Af 64 BUN/Creatinine Ratio 21.7 H Glucose 155 H Calcium 8.5 Troponin I < 0.015 - Rhythm Strip Rhythm Strip: atrial pacing Rate: 65 Ectopy: None - EKG Initial EKG Interpretation: - - Atrial pace and capture, 64. poor R-wave progression. LAD. NSIVCD. Prior: Unchanged - 05/29/18 - Medical Decision Making CT of the head was negative given his syncope and headache, and CT angiography of the chest shows no PE, he has not been shown to have one in the past with this test. Labs were showing mild chronic renal insufficiency, that is stable. His troponin is negative. His EKG shows no acute injury. On reevaluation after nitroglycerin which did not seem to do much and then morphine, his chest is feeling much better and he still has the slurred speech. He has no other lateralizing neurologic findings. He prefers to go home since there are no other tests that can be done here. Therefore I obtained a 3-hour repeat troponin and it is negative as well. He has had prior EEGs that are unremarkable, tilt table test that are negative, as well as Holter monitors although it has been a while for the latter. I think it is reasonable for him to follow-up with his heart doctor and neurologist, I do not think he is having unstable angina. They are comfortable with this plan. ED Disposition - Plan for ED Patient: Disposition: Home or Assisted Living Diagnosis: Chest pain, unspecified, Recurrent syncope, Dysarthria Instructions: ED Chest Pain NonCardiac, ED Fainting Unkn Cause [facility] [facility] [[facility]] - 3-5 Days
[2018-06-11 19:49] LABS: Absolute Lymphocyte Count 1.13 X10^3/ul (0.83-4.51); Absolute Neutrophil Count 4.1 X10^3/uL (2.0-7.7); Basophil# 0.01 X10^3/uL; Basophil% 0.2 % (0-1); Eosinophils% 1.7 % (0-5); Hematocrit 40.2 % (40-54); Hemoglobin 13.7 g/dl (13.0-16.5); Lymphocyte # 1.13 X10^3/ul (4.0); Lymphocyte % 19.3 % (19-41); Mean Corp Hgb Conc 34.1 g/gl (32-36); Mean Corpuscular Hgb 33.1 pg (27.0-32.0); Mean Corpuscular Volume 97.1 fL (80-94); Monocyte# 0.49 X10^3/uL; Monocyte% 8.4 % (0-10); Neutrophil # 4.12 X10^3/uL (2.7-7.7); Neutrophil % 70.4 % (47-70); POSITIVE COUNT NO; POSITIVE DIFFERENTIAL NO; POSITIVE MORPHOLOGY NO; Platelet Count 158 K/mm3 (150-450); RBC Distribution Width CV 14.5 % (11.6-14.6); RBC Distribution Width SD 51.4 fl (35.1-43.9); Red Blood Count 4.14 M/mm3 (4.6-6.2); White Blood Count 5.9 K/mm3 (4.4-11.0)
[2018-06-11 20:04] LABS: Anion Gap 8 (5-15); BUN 26 mg/dL (7-18); BUN/Creat Ratio 21.7 RATIO (10-20); Calcium,Total 8.5 mg/dL (8.5-10.1); Chloride 105 mmol/L (98-107); EST Glomerular Filtration Rate 64 mL/min (>60); Est Glom Filt Rate - Afr Amer 77 mL/min (>60); Glucose 155 mg/dL (74-106); Potassium 3.7 mmol/L (3.5-5.1); Sodium Level 143 mmol/L (136-145)
--- NOTE | 2018-06-11 20:48 | ED.RN ---
I CALLED [facility] AND TALKED TO NAOMY FROM THE TRANSFER CENTER. SHE STATED SHE CANNOT ACCEPT THIS PT A TRANSFER TONIGHT.
[2018-06-11] MEDS: Morphine 2 MG/ML Syringe IV (21:19)
== END 2018-06-11 23:40 | disposition home or self-care (01) ==
PROVIDERS: Emergency Provider Emergency Medicine
DX: R07.9 Chest pain, unspecified (principal); R55 Syncope and collapse; R47.1 Dysarthria and anarthria; E66.9 Obesity, unspecified; Z87.891 Personal history of nicotine dependence; G47.33 Obstructive sleep apnea (adult) (pediatric); I10 Essential (primary) hypertension; E78.5 Hyperlipidemia, unspecified; E11.9 Type 2 diabetes mellitus without complications; J96.10 Chronic respiratory failure, unspecified whether with hypoxia or hypercapnia; I25.10 Atherosclerotic heart disease of native coronary artery without angina pectoris; Z95.1 Presence of aortocoronary bypass graft; Z95.0 Presence of cardiac pacemaker; Z86.73 Personal history of transient ischemic attack (TIA), and cerebral infarction without residual deficits
CPT/HCPCS: 70450; 71275; 80048; 84484; 85025; 93005; 96361; 96374; 99284; J7030; Q9967; A4216

== ENCOUNTER 2018-06-20 13:51 | Observation (INO) | payer OTHER, SELFPAY ==
[2018-06-11 18:40] VITALS: BMI 47.5
[2018-06-20] VITALS (9 sets, daily range): BP systolic 138–162; BP diastolic 56–75; PULSE 61–76; RESP 12–22; TEMP 36.4–36.7; O2SAT 94–99; BMI 38.0; BMI 36.7; BMI 36.8
--- NOTE | 2018-06-20 14:10 | EKG12_ITS ---
Test Reason : FALL Blood Pressure : / mmHG Vent. Rate : 068 BPM Atrial Rate : 068 BPM P-R Int : 174 ms QRS Dur : 116 ms QT Int : 458 ms P-R-T Axes : 063 -42 096 degrees QTc Int : 487 ms Normal sinus rhythm Left axis deviation Nonspecific ST and T wave abnormality Prolonged QT Abnormal ECG Confirmed by PADILLA GUALLPA, CALI ([id number]), mapping editor NADINE FERRER ([id number]) on 06/22/2018 1:31:20 PM Referred By: Lazaro Lawrence Confirmed By:CALI ACUSEY MD
--- NOTE | 2018-06-20 14:11 | CT_ITS ---
STUDY: CT CHEST WITHOUT CONTRAST REASON FOR EXAM: Male, 68 years old. Rib pain. Fall. RADIATION DOSAGE (If Supplied By Facility): CTDIvol = ( 20.15 ) mGy, DLP = ( 730.04 ) mGycm TECHNIQUE: Transaxial imaging was performed without the administration of intravenous contrast material. Coronal and sagittal reformatted images were created. Individualized dose optimization techniques were used for this CT. COMPARISON: None FINDINGS: There are no pulmonary infiltrates or pleural effusions. There are no pulmonary nodules or masses. There is no pneumothorax. The patient is status post sternotomy and coronary artery bypass. The heart and pericardium are within normal limits. There is a pacemaker in place. There is no thoracic lymphadenopathy. There is no evidence of thoracic aortic aneurysm. Images through the upper abdomen demonstrate no significant abnormality. The visualized thoracic osseous structures are intact. CT/Chest without Contrast IMPRESSION: No acute traumatic findings demonstrated on this noncontrast CT of the chest. Electronically Signed: Mark Canas, at 15:37 EDT Tel , Service support ,
--- NOTE | 2018-06-20 14:13 | ED.VISSUMM ---
- ER Visit Summary Date of Service: 06/20/18 Chief Complaint: Fell in the shower complaining of right rib cage pain History of Present Illness: The patient is a 68 M history of prior CVA, CAD with cardiac stents, insulin-dependent diabetes, COPD and renal insufficiency. states he sits on a chair in the shower she was in the bathroom and either slipped off the chair the chair slipped out from under him he fell striking his right rib cage on side of the shower. She does not believe he hit his head. He denies any headache or head injury. No LOC. No neck pain. Primarily complaining of right lateral rib cage pain. He denies any recent angina type of pain. No shortness of breath. Physical Examination: Elderly male no acute distress. Vital signs stable. On 2 L 97% no hypoxia. H EENT exam pupils are reactive light. There is no signs of trauma to his face or scalp. No swelling, hematomas, laceration any other signs of trauma or tenderness. C-spine nontender. Trachea midline. Lungs clear to auscultation bilaterally. His right lateral rib cage has tenderness but no crepitance or subcu air. No gross bony deformity. Otherwise the anterior chest and left chest are unremarkable nontender. Lungs clear to auscultation bilaterally. Heart regular rhythm no murmur. Chest wall there is no crepitance. Abdomen soft and nontender normal bowel sounds obese. Patient is moving all 4 extremities. There is no deformities. 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 Dorsi plantar flexion intact. No deformities. Neurologically he is awake and alert. He is answering questions and following commands. No focal motor deficits. Test Results: Chest CT without contrast shows no acute abnormality. Reviewed by me read by the radiologist. No pneumothorax. No hemothorax. No obvious rib fractures. CT of the brain again shows no acute abnormality read by the radiologist reviewed by me. No intracranial bleed. CBC shows a white count of 4. Hemoglobin 13. Platelets are 129,000. Chemistries unremarkable gap of 4 creatinine 0.9. He is diabetic his sugars 334. EKG showed a sinus rhythm rate of 69 with inverted T waves V2 V3 change from prior EKG from 05/2018. Emergency Department Course and Treatment: Patient was in the emergency department a CAT scan and CAT scan and had a change of mental status prior to any scans being done we went over and evaluated. His vital signs were stable at that time his blood sugar is 339. He had a normal pulse ox and blood pressure and heart rate. The CAT scans were done and were basically read as unremarkable with no acute process of both his chest and brain. We are still waiting on a troponin. Patient will be reevaluated checked out to the afternoon physician for final disposition. Treatment Plan: [] Disposition: Discharge Impression: Acute fall with right lower rib cage contusion Transient mental status change Anticoagulated on Plavix and aspirin History of CVA, CAD and insulin pen diabetes. This note was generated with [employer] dictation software. It may contain incorrect words, spelling, and punctuation that were not noted in review of the chart prior to signing ED Disposition - Plan for ED Patient: [facility] [[facility] Provider[facility] -
[2018-06-20] MEDS: HYDROcodone Bitartrate/Apap 5/325 Tablet PO (14:18)
--- NOTE | 2018-06-20 14:31 | CT_ITS ---
STUDY: CT BRAIN WITHOUT CONTRAST REASON FOR EXAM: Male, 68 years old. AMS RADIATION DOSAGE (If Supplied By Facility): CTDIvol = ( 44.99 ) mGy, DLP = ( 846.73 ) mGycm TECHNIQUE: Transaxial CT imaging of the brain was performed without administration of intravenous contrast material. Individualized dose optimization techniques were used for this CT. COMPARISON: None. FINDINGS: There is cerebral atrophy with widening of the extra-axial spaces and ventricular dilatation. There are areas of decreased attenuation within the white matter tracts of the supratentorial brain, consistent with microvascular disease changes. There is no intracranial hemorrhage. There are no findings of an acute ischemic infarction. Normal soft tissue structures. Normal visualized paranasal sinuses. CT/Brain/Head without Contrast IMPRESSION: Chronic involutional changes of the brain. Electronically Signed: Aly Krueger MD at 15:06 EDT Tel , Service support ,
[2018-06-20 14:36] LABS: Bedside Glucose 339 mg/dL (70-110)
[2018-06-20 14:53] LABS: Absolute Lymphocyte Count 0.88 X10^3/ul (0.83-4.51); Absolute Neutrophil Count 3.4 X10^3/uL (2.0-7.7); Basophil# 0.01 X10^3/uL; Basophil% 0.2 % (0-1); Eosinophil# 0.08 X10^3/uL; Eosinophils% 1.7 % (0-5); Hematocrit 40.3 % (40-54); Hemoglobin 13.7 g/dl (13.0-16.5); Lymphocyte # 0.88 X10^3/ul (4.0); Lymphocyte % 18.9 % (19-41); Mean Corpuscular Hgb 32.5 pg (27.0-32.0); Mean Corpuscular Volume 95.7 fL (80-94); Mean Platelet Vol. 9.9 fl (6.2-12.0); Monocyte# 0.29 X10^3/uL; Monocyte% 6.2 % (0-10); Neutrophil # 3.38 X10^3/uL (2.7-7.7); Neutrophil % 72.8 % (47-70); POSITIVE COUNT NO; POSITIVE DIFFERENTIAL NO; POSITIVE MORPHOLOGY NO; Platelet Count 129 K/mm3 (150-450); RBC Distribution Width SD 46.8 fl (35.1-43.9); Red Blood Count 4.21 M/mm3 (4.6-6.2); White Blood Count 4.7 K/mm3 (4.4-11.0)
[2018-06-20 15:04] LABS: Anion Gap 4 (5-15); BUN 17 mg/dL (7-18); BUN/Creat Ratio 17.4 RATIO (10-20); Calcium,Total 8.1 mg/dL (8.5-10.1); Chloride 105 mmol/L (98-107); Creatinine, Serum 0.98 mg/dL (0.70-1.30); EST Glomerular Filtration Rate 81 mL/min (>60); Est Glom Filt Rate - Afr Amer 98 mL/min (>60); Estimated Creatinine Clearance 74.49 ml/min; Glucose 334 mg/dL (74-106); Potassium 4.2 mmol/L (3.5-5.1); Sodium Level 138 mmol/L (136-145)
[2018-06-20] MEDS: Morphine 4 MG/ML Syringe IV (16:02)
--- NOTE | 2018-06-20 16:31 | NURSING ---
CALLED MARK CAZARES, LEFT MESSAGE ON TRANSFER LINE
[2018-06-20] MEDS: Aspirin 81 MG TAB.CHEW 162 MG PO (16:40)
--- NOTE | 2018-06-20 16:41 | NURSING ---
DR ANKIT PENA
[2018-06-20 16:43] LABS: Bacteria 0 SEEN /hpf (None Seen); Mucous, Urine 0 SEEN /hpf (<or=2+); White Blood Cells 0 SEEN /hpf (0-5)
--- NOTE | 2018-06-20 16:45 | NURSING ---
DR HERNÁNDEZ IN ER
--- NOTE | 2018-06-20 16:52 | ED.VISSUMM ---
- ER Visit Summary Date of Service: 06/20/18 Chief Complaint: [] History of Present Illness: The patient is a 68 M [] Physical Examination: [] Test Results: [] Emergency Department Course and Treatment: Patient signed out to me. Image studies are negative. Pending a troponin which returned negative. Interim reported he had chest pain symptoms improved with morphine. I reevaluate the patient is pain-free. Discussed his symptoms reports shortly after the fall he developed the pain symptoms across his chest that was pressure related. He has history of coronary disease. Spouse states he had a cath here in February 2017. He does have cardiac risk factors. He has abnormal EKG compared to 2 weeks ago. Evaluation cath report he did have coronary disease in addition to his patent bypass grafts. He was given aspirin for cardioprotection due to not taking today's dose until nighttime. KRISSY scores of 3. Heart score is a 5. In addition speaking with patient's confusion, he does answer questions follows commands, however spouse states he is not quite back to baseline. This happened to him in the past with it would eventually get better. There is no focal neurological deficits. His CT head was negative. Spoke with hospitalist, Dr. Lawrence who evaluated the patient in the ED, he will be admitted to PCU for further management. [facility], ward secretary left message to valerie christopher. Treatment Plan: [] Disposition: Admission Impression: 1. Fall 2. Right rib contusion 3. Chest pain 4. Abnormal EKG 5. Encephalopathy This note was generated with [employer] dictation software. It may contain incorrect words, spelling, and punctuation that were not noted in review of the chart prior to signing ED Disposition - Plan for ED Patient: Disposition: Acute Care Hospital [facility] Diagnosis: Chest pain, Abnormal EKG, Chest wall contusion, Confusion [facility] [Primary Care Provider] -
[2018-06-20 16:56] LABS: Color, Urine Yellow (Yellow); Glucose, Dipstick 250 mg/dl (Normal); Ketone-Dipstick 5 mg/dl (Negative); Leukocyte Esterase-Dipstick Negative /ul (Negative); Nitrite-Dipstick Negative (Negative); Occult Blood-Urine 50 /ul (Negative); Protein-Dipstick 15 mg/dl (Negative); Specific Gravity, Urine 1.015 (1.002-1.030); Urine Bilirubin Dipstick Negative (Negative); Urine Clarity Clear (Clear); Urine Urobilinogen Normal (Normal)
--- NOTE | 2018-06-20 16:57 | ED.DCSUM_ITS ---
- ER Visit Summary Date of Service: 06/20/18 Chief Complaint: [] History of Present Illness: The patient is a 68 M [] Physical Examination: [] Test Results: [] Emergency Department Course and Treatment: Patient signed out to me. Image studies are negative. Pending a troponin which returned negative. Interim reported he had chest pain symptoms improved with morphine. I reevaluate the patient is pain-free. Discussed his symptoms reports shortly after the fall he developed the pain symptoms across his chest that was pressure related. He has history of coronary disease. Spouse states he had a cath here in February 2017. He does have cardiac risk factors. He has abnormal EKG compared to 2 weeks ago. Evaluation cath report he did have coronary disease in addition to his patent bypass grafts. He was given aspirin for cardioprotection due to not taking today's dose until nighttime. KRISSY scores of 3. Heart score is a 5. In addition speaking with patient's confusion, he does answer questions follows commands, however spouse states he is not quite back to baseline. This happened to him in the past with it would eventually get better. There is no focal neurological deficits. His CT head was negative. Spoke with hospitalist, Dr. Lawrence who evaluated the patient in the ED, he will be admitted to PCU for further management. Patient primary [facility] patient, company secretary left message to valerie christopher. Treatment Plan: [] Disposition: Admission Impression: 1. Fall 2. Right rib contusion 3. Chest pain 4. Abnormal EKG 5. Encephalopathy This note was generated with [employer] dictation software. It may contain incorrect words, spelling, and punctuation that were not noted in review of the chart prior to signing ED Disposition - Plan for ED Patient: Disposition: Acute Care Hospital [facility] Diagnosis: Chest pain, Abnormal EKG, Chest wall contusion, Confusion [facility] [[facility] Provider] -
--- NOTE | 2018-06-20 16:59 | NURSING ---
PCU CP, ABN EKG, CHEST WALL INJURY, CONFUSION OBS ASHELFAH
--- NOTE | 2018-06-20 17:01 | HP.PCM_ITS ---
Problem List (1) Abnormal EKG Status: Acute (2) Chest wall contusion Status: Acute (3) Atypical chest pain Status: Acute (4) Hyperlipidemia Status: Chronic Qualifiers: Hyperlipidemia type: unspecified Qualified Code(s): E78.5 - Hyperlipidemia, unspecified (5) Hypertension Status: Chronic Qualifiers: Hypertension type: essential hypertension Qualified Code(s): I10 - Essential (primary) hypertension (6) DM type 2 (diabetes mellitus, type 2) Status: Chronic Qualifiers: Diabetes mellitus halfway insulin use: with exterminator use (7) Obstructive sleep apnea Status: Chronic (8) Seizure Status: Chronic Qualifiers: (9) S/P CABG (coronary artery bypass graft) Status: Chronic (10) CVA (cerebral vascular accident) Status: Chronic Qualifiers: Comment: Residual left-sided weakness History of Present Illness Date of Admission: 06/20/18 Chief Complaint: Follow-up, right rib cage pain, left chest pain. The patient is a 68 year old M with multiple medical comorbidities as mentioned above presented to the emergency department because of fall and right rib cage pain. The patient has history of stroke with chronic aphasia and chronic left- sided hemiparesis and was not able to provide detailed history. Patient's was at the bedside and she provided most of the information. According to the , patient was in the shower and he slipped off the chair and fell onto the right side of his chest. After the fall, patient started complaining of right rib cage pain. The does not believe that the patient was dizzy or lightheaded and there was no evidence of significant head trauma. There was no reported loss of consciousness or neck pain. The mentioned that the p atient has been having issues with transient confusion and disorientation because of history of stroke. During the patient's stay in the ED, he mentioned that his pain goes to the left side of his chest and he was found to have new EKG changes. He has history of CAD status post CABG and stents, had cardiac catheterization on February, that revealed patent SVG graft to obtuse marginal, diagonal branch and RCA, MASON to LAD and ejection fraction 55%. He had stress echocardiogram on November, that revealed normal, adequate stress echocardiogram that was negative for ischemia by EKG and echocardiographic criteria. He has been on aspirin, Plavix, statins, Ranexa and atenolol for CAD. He had a history of type 2 diabetes mellitus, has been on high doses of insulin and his hemoglobin A1c was 7 on November,. He had a history of stroke with residual aphasia/dysarthria and resultant left-sided hemiparesis and he has been on aspirin, Plavix and statins. In the emergency department, his vital signs were stable and his pulse ox was 97% on 3 L which is his baseline at home. His routine blood work was remarkable for chronic thrombocytopenia, otherwise normal. His EKG revealed normal sinus rhythm, normal TX intervals, normal QRS, revealed T wave inversion in lead V2, ST segment depression in leads V3, V4, V5 and V6 and compared to the EKG which was done on June 11, 2018, those ST segment depression are slightly more prominent today. His first troponin is negative. CT scan brain showed no acute infarction or hemorrhage. CT scan chest showed no acute fractures, no acute findings, no pneumonia or pleural effusion. He is being admitted for atypical chest pain with EKG changes as well as fall and right rib cage contusion. Past Medical History Past Medical History (Chronic Problems): Chronic Problems Left-sided weakness (Chronic) Hyperlipidemia (Chronic) Hypertension (Chronic) Obesity (Chronic) Pacemaker (Chronic) 2001 Chronic respiratory failure (Chronic) baseline 3L continuously CAD (coronary artery disease) (Chronic) Cardiac catheterization 02/24/2017?normal LV size should not, EF 55%, [place] multivessel CAD, patent SVG to diagonal 1, OM 2, and RCA, MASON to LAD previously reported as atretic/nonfunctional (not reevaluated at that time), advised medical therapy DM type 2 (diabetes mellitus, type 2) (Chronic) Obstructive sleep apnea (Chronic) Seizure (Chronic) Aphasia (Chronic) S/P CABG (coronary artery bypass graft) (Chronic) S/P PTCA (percutaneous transluminal coronary angioplasty) (Chronic) CVA (cerebral vascular accident) (Chronic) Residual left-sided weakness Allergies ezetimibe Allergy (Verified 06/20/18 13:52) Unknown Fish Containing Products Allergy (Verified 06/20/18 13:52) Unknown glyburide Allergy (Verified 06/20/18 13:52) Unknown lisinopril Allergy (Verified 06/20/18 13:52) Unknown metoprolol Allergy (Verified 06/20/18 13:52) Unknown simvastatin Allergy (Verified 06/20/18 13:52) Unknown Home Medications: Ambulatory Orders Medication Instructions Recorded Aspirin E.C. [Ecotrin] 81 mg PO DAILY@0800 06/11/18 Atenolol [Tenormin] 100 mg PO DAILY 06/11/18 Atorvastatin Calcium [Lipitor] 80 mg PO QHS 06/11/18 Budesonide/Formoterol 160/4.5 2 puff INHALATION BID 06/11/18 [Symbicort 160/4.5 Mcg Inhaler (SP)] Cholecalciferol (VIT D3) [Vitamin 3 tab PO DAILY 06/11/18 D] Ciprofloxacin [Cipro] 500 mg PO BID 06/11/18 Clopidogrel Bisulfate [Clopidogrel] 75 mg PO DAILY 06/11/18 Dextrose [Glucose] 4 tab PO PRN PRN 06/11/18 Escitalopram Oxalate [Lexapro] 10 mg PO DAILY 06/11/18 Finasteride [Proscar] 5 mg PO DAILY 06/11/18 Furosemide [Lasix] 20 mg PO DAILY 06/11/18 Insulin Regular, Human [Humulin R 120 unit SQ LUNCH 06/11/18 U-500 Kwikpen] Insulin Regular, Human [Humulin R 140 unit SQ DINNER 06/11/18 U-500 Kwikpen] Insulin Regular, Human [Humulin R 175 unit SQ BREAKFAST 06/11/18 U-500 Kwikpen] Ketoconazole 1 applicatio TP DAILY 06/11/18 Multivitamins,Ther W-Minerals 1 tablet PO DAILY 06/11/18 [Multivitamin With Minerals] Pantoprazole Sodium 40 mg PO BID 06/11/18 Ranolazine [Ranexa] 1,000 mg PO BID 06/11/18 Tamsulosin HCl [Flomax] 2 capsule PO QHS 06/11/18 Tiotropium Central [Spiriva 18 MCG] 2 puff INHALATION DAILY 06/11/18 Surgical History: angioplasty, coronary bypass surgery, pacemaker implantation, - - cabg,cholecystectemy, hernia, left knee, 4 stents Psychiatric History: Depression Lives: Spouse/ Significant Other Smoking Status: Former smoker Alcohol: None Drugs: None - *Family History Maternal History Items: Heart Disease Paternal History Items: Unknown Review of Systems Constitutional: Denies: Anorexia, Chills, Fever, Weakness Eyes: Denies: Blurred vision, Double vision, Drainage, Vision Change HEENT: Denies: Difficulty Hearing, Ear Pain, Eye Pain, Nasal Congestion, Sore Throat Cardiovascular: Reports: Chest Pain. Denies: Edema, Heaviness, Palpitations, Syncope Respiratory: Denies: Cough, Pleuritic Pain, Shortness of Breath, Sputum production, Wheezing Gastrointestinal: Denies: Abdominal Pain, Constipation, Diarrhea, Nausea, Vomiting Genitourinary: Denies: Dysuria, Frequency, Hematuria Musculoskeletal: Denies: Arm Pain, Back Pain, Foot Pain Neurological: Reports: Slurred speech, Confusion, Focal weakness. Denies: Balance problems, Change in Speech, Incoordination, Numbness, Tingling Psychiatric: Reports: Depression. Denies: Anxiety VTE Information - Inpt Only VTE Present on Admission: No VTE Mechan Device Prophylaxis: None VTE Pharm Prophylaxis ordered?: Yes Patient Problems: Active and Suspected Problems Abnormal EKG (Acute) Chest wall contusion (Acute) - Physical Exam General: Alert, Cooperative, No apparent distress, - - Dysarthric. HEENT: Atraumatic, PERRLA, EOMI, Normocephalic Oral: Moist Mucosa, No Gingival or Mucosal Lesions/ Ulcerations Neck: Supple, No JVD, Negative Carotid Bruits, Trachea Midline, Thyroid Normal Size and Texture Lungs: Clear to auscultation, No rhonchi, No wheeze, No rales, Diminished Cardiovascular: Regular rate, Regular Rhythm, Normal S1, Normal S2, PMI Normal Abdomen: Bowel Sounds Present, Soft, Non Tender, Non-Distended, No Hepato- splenomegaly, Obese Extremities: No clubbing, No cyanosis, Edema - Trace edema. Skin: No rashes, No breakdown Lymphatic: No Cervical, Supraclavicular, or Inguinal Adenopathy Neurological: Cranial nerves II-XII grossly intact, Slurred Speech, - - Left- sided hemiparesis. Psych/Mental Status: Flat Affect Vital Signs Temp Pulse Resp BP Pulse Ox 97.6 F L 69 22 H 138/56 H 97 06/20/18 13:52 06/20/18 15:51 06/20/18 15:51 06/20/18 15:51 06/20/18 15:51 Oxygen Flow Rate (L/min) 3 Oxygen Delivery Method Nasal Cannula Weight: 265 lb Body Mass Index (BMI) 38.0 Finger Stick Blood Glucose 81 Laboratory Tests Past 24 Hrs 06/20/18 06/20/18 06/20/18 14:41 14:45 14:45 WBC 4.7 RBC 4.21 L Hgb 13.7 Hct 40.3 MCV 95.7 H MCH 32.5 H MCHC 34.0 RDW 14.0 RDW Differential 46.8 H Plt Count 129 L MPV 9.9 Immature Gran % (Auto) 0.200 Neut % (Auto) 72.8 H Lymph % (Auto) 18.9 L Winn % (Auto) 6.2 Eos % (Auto) 1.7 Baso % (Auto) 0.2 Absolute Neuts (auto) 3.4 Absolute Lymphs (auto) 0.88 Total Counted Not Reportable Sodium 138 Potassium 4.2 Chloride 105 Carbon Dioxide 29.0 Anion Gap 4 L BUN 17 Creatinine 0.98 Estim Creat Clear Calc 74.49 Est GFR (MDRD) Af Amer 98 Est GFR (MDRD) Non-Af 81 BUN/Creatinine Ratio 17.4 Glucose 334 H Calcium 8.1 L Troponin I < 0.015 Urine Color Urine Clarity Urine pH Ur Specific [place] Urine Protein Urine Glucose (UA) Urine Ketones Urine Occult Blood Urine Nitrite Urine Bilirubin Urine Urobilinogen Ur Leukocyte Esterase Urine RBC Urine WBC Ur Squamous Epith Cells Urine Bacteria Urine Mucus 06/20/18 16:35 WBC RBC Hgb Hct MCV MCH MCHC RDW RDW Differential Plt Count MPV Immature Gran % (Auto) Neut % (Auto) Lymph % (Auto) Winn % (Auto) Eos % (Auto) Baso % (Auto) Absolute Neuts (auto) Absolute Lymphs (auto) Total Counted Sodium Potassium Chloride Carbon Dioxide Anion Gap BUN Creatinine Estim Creat Clear Calc Est GFR (MDRD) Af Amer Est GFR (MDRD) Non-Af BUN/Creatinine Ratio Glucose Calcium Troponin I Urine Color Pending Urine Clarity Pending Urine pH Pending Ur Specific [place] Pending Urine Protein Pending Urine Glucose (UA) Pending Urine Ketones Pending Urine Occult Blood Pending Urine Nitrite Pending Urine Bilirubin Pending Urine Urobilinogen Pending Ur Leukocyte Esterase Pending Urine RBC Pending Urine WBC Pending Ur Squamous Epith Cells Pending Urine Bacteria Pending Urine Mucus Pending POC Glucose 06/20/18 14:30 POC Glucose 339 H Clinical Impression(s) from Imaging Studies Chest CT 06/20/18 14:11 IMPRESSION: No acute traumatic findings demonstrated on this noncontrast CT of the chest. Electronically Signed: Mark Canas, at 15:37 EDT Tel , Service support , Brain CT 06/20/18 14:31 IMPRESSION: Chronic involutional changes of the brain. Electronically Signed: Aly Krueger MD at 15:06 EDT Tel , Service support , Assessment/Plan All Active Problems Abnormal EKG (Acute) Chest wall contusion (Acute) Atypical chest pain (Acute) This is a 68 years old male patient presented to the medicine because of fall and right rib cage pain, had work-up with CT scan chest and brain as well as routine blood work and EKG, developed left chest pain while on the ER and he was found to have new EKG changes and is being admitted for evaluation. #1 atypical chest pain/EKG changes: EKG reviewed, revealed new T wave inversion in lead V2, ST segment depression in leads V3, V4, V5 and V6 which are slightly prominent compared to EKG which was done on May,. First troponin is negative. He had cardiac catheterization that was done on February, which was reviewed as above. He had stress echocardiogram that was done on November, and was normal. CT scan chest showed no acute findings. His vital signs are stable. Plan: Admit to PCU for observation, cardiac monitoring, serial cardiac enzymes, repeat EKG tomorrow morning, IV morphine PRN for pain, cardiology consult, continue aspirin, Plavix, statins, beta-blockers and Ranexa. #2 fall/right rib cage confusion: Due to mechanical fall. CT scan chest without acute findings, no fractures, no pleural effusion. Plan for pain control, incentive sponsor, PT OT evaluation and treatment. #3 encephalopathy: According to the , patient has been having transient confusion and disorientation and nothing unusual from his baseline. It is secondary to stroke. CT scan brain showed no acute findings. #4 CAD status post CABG and stents: Plan as above, continue aspirin, Plavix, statins, atenolol and Ranexa. #5 type 2 diabetes mellitus: ADA diet, Accu-Cheks, insulin sliding scale, continue home doses of Humulin insulin. #6 history of stroke: With resultant dysarthria and left-sided hemiparesis, continue aspirin, statins and Plavix. #7 hypertension: Blood pressure stable, continue atenolol and Lasix. #8 hyperlipidemia: Stable, continue statins. #9 COPD/chronic respiratory failure: On home oxygen at 3 L. At this time, pulse ox is maintained on 3 L. Plan for DuoNeb every 6 hours, albuterol as needed. #10 benign prostatic hypertrophy: Continue Proscar and Flomax. #11: Depression, continue Lexapro. #12 DVT prophylaxis: Subcu Lovenox. This note was generated with [employer] dictation software. It may contain incorrect words, spelling, and punctuation that were not noted in checking the note before signing. Code Visit OBSV E&M: 67073 Initial observation care L3
[2018-06-20 17:18] LABS: Red Blood Cells-Urine 5-10 SEEN /hpf (0-5); Squamous Epithelial Cells - UA 0-5 SEEN /hpf (0-5)
[2018-06-20 19:05] LABS: Bedside Glucose 239 mg/dL (70-110)
[2018-06-20] MEDS: Ipratropium/Albuterol Sulfate 3 ML AMPUL.NEB INHALATION (19:46)
[2018-06-20] MEDS: oxyCODONE 5 MG Tablet PO (20:30)
[2018-06-20] MEDS: Morphine 2 MG/ML Syringe IV (21:50)
[2018-06-20] MEDS: Atorvastatin Calcium 80 MG Tablet PO (21:52)
[2018-06-20] MEDS: Pantoprazole Sodium 40 MG Tablet PO (21:52)
[2018-06-20] MEDS: Ranolazine 500 MG Tablet 1000 MG PO (21:52)
[2018-06-20] MEDS: Tamsulosin HCl 0.4 MG Capsule 0.8 MG PO (21:53)
[2018-06-20] MEDS: Insulin Lispro 100 UNIT/ML INSULN.PEN SC (21:56)
[2018-06-20 22:05] LABS: Bedside Glucose 207 mg/dL (70-110)
[2018-06-21] VITALS (9 sets, daily range): BP systolic 122–158; BP diastolic 58–75; PULSE 63–77; RESP 12–19; TEMP 36.6–36.9; O2SAT 96–98
[2018-06-21] MEDS: Morphine 2 MG/ML Syringe IV ×3 (00:57→09:08)
[2018-06-21 02:51] LABS: Bedside Glucose 105 mg/dL (70-110)
--- NOTE | 2018-06-21 05:55 | EKG12_ITS ---
Test Reason : AM EKG Blood Pressure : / mmHG Vent. Rate : 069 BPM Atrial Rate : 069 BPM P-R Int : 228 ms QRS Dur : 120 ms QT Int : 466 ms P-R-T Axes : 080 -19 092 degrees QTc Int : 499 ms Sinus rhythm with 1st degree A-V block Non-specific intra-ventricular conduction delay Confirmed by PADILLA GUALLPA, CALI ([id number]), map editor NADINE FERRER ([id number]) on 06/22/2018 2:00:52 PM Referred By: Lazaro Lawrence Confirmed By:CALI CAUSEY MD
[2018-06-21] MEDS: 0.9% NaCl Peripheral Flush Adult/Peds IV ×4 (06:32→09:10)
[2018-06-21] MEDS: Ipratropium/Albuterol Sulfate 3 ML AMPUL.NEB INHALATION ×2 (06:43→13:07)
[2018-06-21] MEDS: Budesonide Respules 0.5 MG/2 ML AMPUL.NEB. INHALATION (06:43)
--- NOTE | 2018-06-21 06:43 | CON.PCM_ITS ---
Reason for Consult Date of Consultation: 06/21/18 Reason for Consultation: Chest pain History of Present Illness: The patient is a 68 year old M with multiple medical comorbidities as mentioned above presented to the emergency department because of fall and right rib cage pain. The patient has history of stroke with chronic aphasia and chronic left- sided hemiparesis and was not able to provide detailed history. Patient's was at the bedside and she provided most of the information. According to the , patient was in the shower and he slipped off the chair and fell onto the right side of his chest. After the fall, patient started complaining of right rib cage pain. The does not believe that the patient was dizzy or lightheaded and there was no evidence of significant head trauma. There was no reported loss of consciousness or neck pain. The mentioned that the patient has been having issues with transient confusion and disorientation because of history of stroke. During the patient's stay in the ED, he mentioned that his pain goes to the left side of his chest and he was found to have new EKG changes. He has history of CAD status post CABG and stents, had cardiac catheterization on February, that revealed patent SVG graft to obtuse yarelis nal, diagonal branch and RCA, MASON to LAD and ejection fraction 55%. He had stress echocardiogram on November, that revealed normal, adequate stress echocardiogram that was negative for ischemia by EKG and echocardiographic criteria. He has been on aspirin, Plavix, statins, Ranexa and atenolol for CAD. He had a history of type 2 diabetes mellitus, has been on high doses of insulin and his hemoglobin A1c was 7 on November,. He had a history of stroke with residual aphasia/dysarthria and resultant left-sided hemiparesis and he has been on aspirin, Plavix and statins. In the emergency department, his vital signs were stable and his pulse ox was 97% on 3 L which is his baseline at home. His routine blood work was remarkable for chronic thrombocytopenia, otherwise normal. His EKG revealed normal sinus rhythm, normal CO intervals, normal QRS, revealed T wave inversion in lead V2, ST segment depression in leads V3, V4, V5 and V6 and compared to the EKG which was done on June 11, 2018, those ST segment depression are slightly more prominent today. His first troponin is negative. CT scan brain showed no acute infarction or hemorrhage. CT scan chest showed no acute fractures, no acute findings, no pneumonia or pleural effusion. He is being admitted for atypical chest pain with EKG changes as well as fall and right rib cage contusion. Past Medical History Allergies/Adverse Reactions: Allergies ezetimibe Allergy (Verified 06/20/18 13:52) Unknown Fish Containing Products Allergy (Verified 06/20/18 13:52) Unknown glyburide Allergy (Verified 06/20/18 13:52) Unknown lisinopril Allergy (Verified 06/20/18 13:52) Unknown metoprolol Allergy (Verified 06/20/18 13:52) Unknown simvastatin Allergy (Verified 06/20/18 13:52) Unknown Home Medications: Ambulatory Orders Medication Instructions Recorded Aspirin E.C. [Ecotrin] 81 mg PO DAILY@0800 06/11/18 Atenolol [Tenormin] 100 mg PO DAILY 06/11/18 Atorvastatin Calcium [Lipitor] 80 mg PO QHS 06/11/18 Cholecalciferol (VIT D3) [Vitamin 3 tab PO DAILY 06/11/18 D] Clopidogrel Bisulfate [Clopidogrel] 75 mg PO DAILY 06/11/18 Dextrose [Glucose] 4 tab PO PRN PRN 06/11/18 Escitalopram Oxalate [Lexapro] 10 mg PO DAILY 06/11/18 Finasteride [Proscar] 5 mg PO DAILY 06/11/18 Furosemide [Lasix] 20 mg PO DAILY 06/11/18 Insulin Regular, Human [Humulin R 120 unit SQ LUNCH 06/11/18 U-500 Kwikpen] Insulin Regular, Human [Humulin R 140 unit SQ DINNER 06/11/18 U-500 Kwikpen] Insulin Regular, Human [Humulin R 175 unit SQ BREAKFAST 06/11/18 U-500 Kwikpen] Ketoconazole 1 applicatio TP DAILY 06/11/18 Multivitamins,Ther W-Minerals 1 tablet PO DAILY 06/11/18 [Multivitamin With Minerals] Pantoprazole Sodium 40 mg PO BID 06/11/18 Ranolazine [Ranexa] 1,000 mg PO BID 06/11/18 Tamsulosin HCl [Flomax] 0.8 mg PO QHS 06/11/18 Norvasc 5 mg PO DAILY 06/20/18 Past Medical History (Chronic Problems): Chronic Problems Left-sided weakness (Chronic) Hyperlipidemia (Chronic) Hypertension (Chronic) Obesity (Chronic) Pacemaker (Chronic) 2001 Chronic respiratory failure (Chronic) baseline 3L continuously CAD (coronary artery disease) (Chronic) Cardiac catheterization 02/24/2017?normal LV size should not, EF 55%, [place] multivessel CAD, patent SVG to diagonal 1, OM 2, and RCA, MASON to LAD previously reported as atretic/nonfunctional (not reevaluated at that time), advised medical therapy DM type 2 (diabetes mellitus, type 2) (Chronic) Obstructive sleep apnea (Chronic) Seizure (Chronic) Aphasia (Chronic) S/P CABG (coronary artery bypass graft) (Chronic) S/P PTCA (percutaneous transluminal coronary angioplasty) (Chronic) CVA (cerebral vascular accident) (Chronic) Residual left-sided weakness Surgical History: angioplasty, coronary bypass surgery, pacemaker implantation, - - cabg,cholecystectemy, hernia, left knee, 4 stents Psychiatric History: Depression - *Family History Maternal History Items: Heart Disease Paternal History Items: Unknown Lives: Spouse/ Significant Other Smoking Status: Former smoker Tobacco Use: Cigarettes Alcohol: None Drugs: None Review of Systems - Review of Systems General: Denies: Fever, Night Sweats, Fatigue HEENT: Denies: Vision Change Cardiovascular: Reports: Chest Discomfort. Denies: Shortness of Breath, Orthopnea, PND, Peripheral Edema, Palpitations, Lightheadedness, Dizziness, Near Syncope, Syncope Respiratory: Denies: Cough, Sputum Production, Hemoptysis Gastrointestinal: Denies: Indigestion, Hematemesis, Hematochezia, Melena Genitourinary: Denies: Dysuria, Hematuria Muscoloskeletal: Denies: Myalgias Skin: Denies: Rash Neurological: Denies: Dizziness Psychiatric: Denies: Anxiety Endocrine: Denies: Excessive Sweating Hematologic/ Lymphatic: Denies: Anemia Subjectve: Patient seen and evaluated Objective: Vital Signs Temp Pulse Resp BP Pulse Ox 97.8 F 70 18 158/71 H 98 06/21/18 02:05 06/21/18 04:09 06/21/18 02:05 06/21/18 02:05 06/21/18 02:05 Oxygen Flow Rate (L/min) 3 Oxygen Delivery Method Nasal Cannula Weight: 256 lb 2.834 oz Body Mass Index (BMI) 36.7 Finger Stick Blood Glucose 81 Intake and Output for Last 24 Hours 06/19/18 06/20/18 06/21/18 23:59 23:59 23:59 Intake Total 350 / 350 100 / 100 Output Total 200 / 200 375 / 375 Balance 150 / 150 -275 / -275 General: Awake, Alert, Oriented x 3 HEENT: PERRL, EOMI, Sclera Non Icteric Neck: Supple, Good ROM, No Lymph Node Enlargement Lungs: Clear to auscultation Cardiovascular: Regular Rhythm, Normal S1, Normal S2, No Murmurs, No Rubs, No Gallops Vascular: No Carotid Bruits, Normal Femoral Pulses, Normal Radial Pulses, Normal Dorsalis Pedal Pulse, Normal Posterior Tibial Pulses Abdomen: Bowel Sounds Present, Soft, Non Tender, No HSM, No Organomegaly Extremities: No Cyanosis, No Clubbing, No edema Musculoskeletal: No Erythema Skin: No Rashes Lymphatic: No Lymph Node Enlargement Neurological: No Focal Motor or Sensory Deficit Psych/Mental Status: Flat Affect 06/20/18 14:41: Troponin I < 0.015 06/20/18 14:45: WBC 4.7, RBC 4.21 L, Hgb 13.7, Hct 40.3, MCV 95.7 H, MCH 32.5 H, MCHC 34.0, RDW 14.0, RDW Differential 46.8 H, Plt Count 129 L, MPV 9.9, Immature Gran % (Auto) 0.200, Neut % (Auto) 72.8 H, Lymph % (Auto) 18.9 L, [place] % (Auto) 6.2, Eos % (Auto) 1.7, Baso % (Auto) 0.2, Absolute Neuts (auto) 3.4, Total Counted Not Reportable 06/20/18 14:45: Sodium 138, Potassium 4.2, Chloride 105, Carbon Dioxide 29.0, Anion Gap 4 L, BUN 17, Creatinine 0.98, Est GFR (MDRD) Af Amer 98, Est GFR (MDRD) Non-Af 81, BUN/Creatinine Ratio 17.4, Glucose 334 H, Calcium 8.1 L 06/20/18 16:35: Urine Color Yellow, Urine Clarity Clear, Urine pH 6.0, Ur Specific [place] 1.015, Urine Protein 15 H, Urine Glucose (UA) 250 H, Urine Ketones 5 H, Urine Occult Blood 50 H, Urine Nitrite Negative, Urine Bilirubin Negative, Urine Urobilinogen Normal, Ur Leukocyte Esterase Negative, Urine RBC 5-10 SEEN, Urine WBC 0 SEEN 06/20/18 18:10: Troponin I < 0.015 06/20/18 20:25: Troponin I < 0.015 Rhythm: EKG: Normal sinus rhythm with nonspecific ST-T wave changes Assessment/Plan 1. Atypical chest pain/EKG changes: EKG reviewed, revealed new T wave inversion in lead V2, ST segment depression in leads V3, V4, V5 and V6 which are slightly prominent compared to EKG which was done on May,. First troponin is negative. He had cardiac catheterization that was done on February, which was reviewed as above. He had stress echocardiogram that was done on November, and was normal. CT scan chest showed no acute findings. His vital signs are stable. * I doubt that any of his symptoms and presentation is cardiac related but I would suggest that as it has been more than 6 months since his last stress test we obtain a pharmacologic myocardial perfusion stress test and depending on the findings further recommendations will be made. It would however have to be significantly abnormal before we perform any invasive procedures. #2 CAD status post CABG and stents: Plan as above, continue aspirin, Plavix, statins, atenolol and Ranexa. #3 type 2 diabetes mellitus: ADA diet, Accu-Cheks, insulin sliding scale, continue home doses of Humulin insulin. #4 history of stroke: With resultant dysarthria and left-sided hemiparesis, continue aspirin, statins and Plavix. #4 hypertension: Blood pressure stable, continue atenolol and Lasix. Thank you for allowing me to participate in the care of your patient. Please don't hesitate to call if any issues arise
[2018-06-21 06:45] LABS: Bedside Glucose 88 mg/dL (70-110)
[2018-06-21 08:05] LABS: Absolute Lymphocyte Count 1.16 X10^3/ul (0.83-4.51); Absolute Neutrophil Count 2.8 X10^3/uL (2.0-7.7); Basophil# 0.02 X10^3/uL; Basophil% 0.5 % (0-1); Eosinophil# 0.13 X10^3/uL; Eosinophils% 2.9 % (0-5); Hematocrit 39.4 % (40-54); Hemoglobin 13.1 g/dl (13.0-16.5); Lymphocyte # 1.16 X10^3/ul (4.0); Lymphocyte % 26.2 % (19-41); Mean Corp Hgb Conc 33.2 g/gl (32-36); Mean Corpuscular Hgb 32.3 pg (27.0-32.0); Mean Corpuscular Volume 97.3 fL (80-94); Mean Platelet Vol. 10.1 fl (6.2-12.0); Monocyte# 0.34 X10^3/uL; Monocyte% 7.7 % (0-10); Neutrophil # 2.78 X10^3/uL (2.7-7.7); Neutrophil % 62.7 % (47-70); POSITIVE COUNT NO; POSITIVE DIFFERENTIAL NO; POSITIVE MORPHOLOGY NO; Platelet Count 106 K/mm3 (150-450); RBC Distribution Width CV 14.1 % (11.6-14.6); RBC Distribution Width SD 50.2 fl (35.1-43.9); Red Blood Count 4.05 M/mm3 (4.6-6.2); White Blood Count 4.4 K/mm3 (4.4-11.0)
[2018-06-21] MEDS: Clopidogrel Bisulfate 75 MG Tablet PO (08:21)
[2018-06-21] MEDS: Aspirin E.C. 81 MG Tablet PO (08:21)
[2018-06-21 08:26] LABS: Anion Gap 3 (5-15); BUN 13 mg/dL (7-18); BUN/Creat Ratio 17.7 RATIO (10-20); Calcium,Total 7.9 mg/dL (8.5-10.1); Chloride 105 mmol/L (98-107); Creatinine, Serum 0.73 mg/dL (0.70-1.30); EST Glomerular Filtration Rate 113 mL/min (>60); Est Glom Filt Rate - Afr Amer 137 mL/min (>60); Glucose 94 mg/dL (74-106); Potassium 3.5 mmol/L (3.5-5.1); Sodium Level 140 mmol/L (136-145)
[2018-06-21 08:30] LABS: Bedside Glucose 95 mg/dL (70-110)
[2018-06-21 08:41] LABS: International Normalized Ratio 1.1; Partial Thromboplast Time 36.5 Seconds (24.1-36.2); Prothrombin Time (Protime)PT. 13.7 SECONDS (11.7-14.9)
--- NOTE | 2018-06-21 11:37 | CASEMGMT ---
SW spoke with patient's as patient is not back from his procedure yet. SW asked her if the plan is to go home or [facility]. She said she does not know as she has not spoken to patient today. SW will check back. Hoda MURRAY MSW
--- NOTE | 2018-06-21 11:39 | CASEMGMT ---
SW spoke with patient's and let her know that [facility] does not have copies of patient's Healthcare POA or Healthcare LW on file. Hoda MURRAY MSW
[2018-06-21 12:06] LABS: Bedside Glucose 169 mg/dL (70-110)
--- NOTE | 2018-06-21 12:52 | STRESSREP ---
Stress Test Report Pharmacologic myocardial perfusion stress test. 68-year-old male with a history of coronary artery disease status post carotid bypass surgery with T wave inversions. Stress protocol: Resting EKG demonstrates normal sinus rhythm with a rate of 64 bpm normal intervals are noted resting blood pressures 134/70 mmHg. 0.4 mg of regadenoson was infused per usual protocol followed by rapid intravenous saline flush injection continuous EKG monitoring was performed. Patient maintained sinus rhythm throughout the recording. The maximum heart rate attained was 100 bpm which was 65% of maximum predicted heart rate the maximum workload was [address]-T wave changes were noted. Resting blood pressure is 134/70 peak blood pressures 170/58. Myocardial perfusion protocol. 14.6 mCi of technetium 99m sestamibi was injected at rest. 0.4 mg of regadenoson was infused per usual protocol peak infusion 44.7 mCi of technetium 99m sestamibi was injected stress images were obtained stress and rest images were reconstructed in comparing the short axis vertical and horizontal long axis. Gated images were also obtained Perfusion SPECT analysis: Review of the stress images demonstrate normal uptake of tracer noted in all areas of myocardium except for small portion of the apex with reduced perfusion. This is present on the stress and resting images to a similar extent. No obvious reversibility is noted suggest ischemia. Gated SPECT analysis: The gated ejection fraction is noted to be 62%. Conclusion: Pharmacologic myocardial perfusion stress test with no obvious evidence of ischemia. Preserved ejection fraction. Previous apical infarct cannot be completely excluded.
--- NOTE | 2018-06-21 13:01 | PCM.DC ---
- Discharge Diagnoses Current Active Problems: Current Active and Chronic Problems Abnormal EKG (Acute) Chest wall contusion (Acute) You will use the following diet at home:: Calorie/Carbohydrate Controlled (specify 1200, 1400, etc) - 1800 naman / day, Cardiac - 2500 mg sodium dialy Your food should be the consistency of: Regular Your liquids should be the consistency of: Regular/Thin Discharge Activity: Return to Normal Activity Allergies/Adverse Reactions: Allergies ezetimibe Allergy (Verified 06/20/18 13:52) Unknown Fish Containing Products Allergy (Verified 06/20/18 13:52) Unknown glyburide Allergy (Verified 06/20/18 13:52) Unknown lisinopril Allergy (Verified 06/20/18 13:52) Unknown metoprolol Allergy (Verified 06/20/18 13:52) Unknown simvastatin Allergy (Verified 06/20/18 13:52) Unknown Medications to take at Discharge Aspirin E.C. [Ecotrin] 81 mg PO DAILY@0800 06/11/18 Atenolol [Tenormin] 100 mg PO DAILY 06/11/18 Atorvastatin Calcium [Lipitor] 80 mg PO QHS 06/11/18 Cholecalciferol (VIT D3) [Vitamin D3] 3 tab PO DAILY 06/11/18 Clopidogrel Bisulfate [Clopidogrel] 75 mg PO DAILY 06/11/18 Dextrose [Glucose] 4 tab PO PRN PRN 06/11/18 Escitalopram Oxalate [Lexapro] 10 mg PO DAILY 06/11/18 Finasteride [Proscar] 5 mg PO DAILY 06/11/18 Furosemide [Lasix] 20 mg PO DAILY 06/11/18 Insulin Regular, Human [Humulin R U-500 Kwikpen] 120 unit SQ LUNCH 06/11/18 Insulin Regular, Human [Humulin R U-500 Kwikpen] 140 unit SQ DINNER 06/11/18 Insulin Regular, Human [Humulin R U-500 Kwikpen] 175 unit SQ BREAKFAST 06/11/18 Ketoconazole 1 applicatio TP DAILY 06/11/18 Multivitamins,Ther W-Minerals [Multivitamin With Minerals] 1 tablet PO DAILY 06/11/18 Pantoprazole Sodium 40 mg PO BID 06/11/18 Ranolazine [Ranexa] 1,000 mg PO BID 06/11/18 Tamsulosin HCl [Flomax] 0.8 mg PO QHS 06/11/18 Norvasc 5 mg PO DAILY 06/20/18 Acetaminophen [Tylenol Tablet] 650 mg PO Q6H PRN PRN tablet 06/21/18 [facility] - Please follow up with your Primary Care Physician in: 2 weeks Test Results: Test results from this visit will be discussed in further detail at your follow-up appointment, if applicable. Please Follow Up With: Cardiology - Keep prior appointment When: 2 days Proposed Discharge Date: 06/21/18
--- NOTE | 2018-06-21 13:02 | PCM.DC.SUM ---
<Sridhar Mullins - Last Filed: 06/21/18 13:04> Discharge Date and Diagnosis - Problem List Patient Problems: Active and Suspected Problems Abnormal EKG (Acute) Chest wall contusion (Acute) Date of Admission: 06/20/18 Date of Discharge: 06/21/18 - Primary Discharge Diagnosis Active and Suspected Problems Chest wall contusion 2/2 mechanical fall Chest pain, 2/2 musculoskeletal pain Abnormal EKG (Acute) Hx CVA with aphasia, debility, focal weakness CAD prior CABG HTN HLD DMt2 EKATERINA Seizures - Secondary Discharge Diagnosis Chronic Problems Left-sided weakness (Chronic) Hyperlipidemia (Chronic) Hypertension (Chronic) Obesity (Chronic) Pacemaker (Chronic) 2001 Chronic respiratory failure (Chronic) baseline 3L continuously CAD (coronary artery disease) (Chronic) Cardiac catheterization 02/24/2017?normal LV size should not, EF 55%, [place] multivessel CAD, patent SVG to diagonal 1, OM 2, and RCA, MASON to LAD previously reported as atretic/nonfunctional (not reevaluated at that time), advised medical therapy DM type 2 (diabetes mellitus, type 2) (Chronic) Obstructive sleep apnea (Chronic) Seizure (Chronic) Aphasia (Chronic) S/P CABG (coronary artery bypass graft) (Chronic) S/P PTCA (percutaneous transluminal coronary angioplasty) (Chronic) CVA (cerebral vascular accident) (Chronic) Residual left-sided weakness Hospital Course and Treatment Imaging Results: 06/21/18 06:31 Nuclear Stress Test - Chemical [NM] Routine Conclusion: Pharmacologic myocardial perfusion stress test with no obvious evidence of ischemia. Preserved ejection fraction. Previous apical infarct cannot be completely excluded. CT/Chest without Contrast IMPRESSION: No acute traumatic findings demonstrated on this noncontrast CT of the chest. CT/Brain/Head without Contrast IMPRESSION: Chronic involutional changes of the brain. Consults: Cardiology - Alyse Operations: None Procedures: Stress test Summary of Care Provided: Hospital Course: The patient is a 68 year old M with pmhx as above who presented to the ER with c/o right sided rib pain after a fall. The patient lost his balance he was attempting to get out of the shower. He fell into a sitting position directly onto his bottom. He developed right-sided pain in his right rib cage. He has had chronic chest pain for 15 years as well according to the . He does have a history of coronary disease with prior CABG, and EKG in the emergency room did have some new changes including new T wave inversion in V2, ST segment depression in V3 V4 V5 and V6. Cardiology was consulted. Troponin was negative, chest x-ray was negative. He was admitted to the PCU on telemetry. Negative trop x 3. No events on telemetry. Cardiology recommended a stress test since it had been 6 months since prior. This was performed and was negative. His CP was felt to be musculoskeletal. He felt oxycodone did not help at all. I recommended OTC lidoderm patches and bengay. He [facility] an [facility] days. I recommended he keep this appointment and recommended he follow up with his PCP in 1-2 weeks. He declined to consider rehab and declined home health despite his considerable debility and his recent fall. He was DC'd home in stable condition. This patient was seen by Sridhar Mullins PA-C under the supervision of Dr. Cheek. [] Patient Problems: Active and Suspected Problems Abnormal EKG (Acute) Chest wall contusion (Acute) - Physical Exam General: Alert, Oriented x3, Cooperative HEENT: Atraumatic, PERRLA, EOMI, Normocephalic Neck: Supple, No JVD, Negative Carotid Bruits Lungs: Clear to auscultation, Normal air movement Cardiovascular: Regular rate, No murmurs Abdomen: Bowel Sounds Present, Soft, Non Tender, Obese Extremities: No edema, Capillary Refill Less than 3 Seconds Skin: No rashes, No breakdown Musculoskeletal: No Tenderness to Palpation of Joints or Extremities Neurological: Cranial nerves II-XII grossly intact, - - dysarthric Psych/Mental Status: Normal Affect, Appropriate, Alert and oriented to time, place, person, mood and affect Vital Signs Temp Pulse Resp BP Pulse Ox 98.4 F 63 16 141/58 H 97 06/21/18 13:00 06/21/18 13:06/21/18 13:00 06/21/18 13:06/21/18 13:00 Oxygen Flow Rate (L/min) 3 Oxygen Delivery Method Nasal Cannula Weight: 256 lb 2.834 oz Body Mass Index (BMI) 36.7 Finger Stick Blood Glucose 81 Intake and Output for Last 24 Hours 05/06/0406/20/18 06/21/18 23:59 23:59 23:59 Intake Total 350 / 350 340 / 340 Output Total 200 / 200 875 / 875 Balance 150 / 150 -535 / -535 Laboratory Tests Past 24 Hrs 06/20/18 06/20/18 06/20/18 14:41 14:45 14:45 WBC 4.7 RBC 4.21 L Hgb 13.7 Hct 40.3 MCV 95.7 H MCH 32.5 H MCHC 34.0 RDW 14.0 RDW Differential 46.8 H Plt Count 129 L MPV 9.9 Immature Gran % (Auto) 0.200 Neut % (Auto) 72.8 H Lymph % (Auto) 18.[address] [place] % (Auto) 6.2 Eos % (Auto) 1.7 Baso % (Auto) 0.2 Absolute Neuts (auto) 3.4 Absolute Lymphs (auto) 0.88 Total Counted Not Reportable PT INR APTT Sodium 138 Potassium 4.2 Chloride 105 Carbon Dioxide 29.0 Anion Gap 4 L BUN 17 Creatinine 0.98 Estim Creat Clear Calc 74.49 Est GFR (MDRD) Af Amer 98 Est GFR (MDRD) Non-Af 81 BUN/Creatinine Ratio 17.4 Glucose 334 H Calcium 8.1 L Troponin I < 0.015 Urine Color Urine Clarity Urine pH Ur Specific [place] Urine Protein Urine Glucose (UA) Urine Ketones Urine Occult Blood Urine Nitrite Urine Bilirubin Urine Urobilinogen Ur Leukocyte Esterase Urine RBC Urine WBC Ur Squamous Epith Cells Urine Bacteria Urine Mucus 06/20/18 06/20/18 06/20/18 16:35 18:10 20:25 WBC RBC Hgb Hct MCV MCH MCHC RDW RDW Differential Plt Count MPV Immature Gran % (Auto) Neut % (Auto) Lymph % (Auto) [place] % (Auto) Eos % (Auto) Baso % (Auto) Absolute Neuts (auto) Absolute Lymphs (auto) Total Counted PT INR APTT Sodium Potassium Chloride Carbon Dioxide Anion Gap BUN Creatinine Estim Creat Clear Calc Est GFR (MDRD) Af Amer Est GFR (MDRD) Non-Af BUN/Creatinine Ratio Glucose Calcium Troponin I < 0.015 < 0.015 Urine Color Yellow Urine Clarity Clear Urine pH 6.0 Ur Specific [place] 1.015 Urine Protein 15 H Urine Glucose (UA) 250 H Urine Ketones 5 H Urine Occult Blood 50 H Urine Nitrite Negative Urine Bilirubin Negative Urine Urobilinogen Normal Ur Leukocyte Esterase Negative Urine RBC 5-10 SEEN Urine WBC 0 SEEN Ur Squamous Epith Cells 0-5 SEEN Urine Bacteria 0 SEEN Urine Mucus 0 SEEN 06/21/18 06/21/18 06/21/18 07:48 07:48 07:48 WBC 4.4 RBC 4.05 L Hgb 13.1 Hct 39.4 L MCV 97.3 H MCH 32.3 H MCHC 33.2 RDW 14.1 RDW Differential 50.2 H Plt Count 106 L MPV 10.1 Immature Gran % (Auto) 0.000 Neut % (Auto) 62.7 Lymph % (Auto) 26.2 [place] % (Auto) 7.7 Eos % (Auto) 2.9 Baso % (Auto) 0.5 Absolute Neuts (auto) 2.8 Absolute Lymphs (auto) 1.16 Total Counted Not Reportable PT 13.7 INR 1.1 APTT 36.5 H Sodium 140 Potassium 3.5 Chloride 105 Carbon Dioxide 32.0 Anion Gap 3 L BUN 13 Creatinine 0.73 Estim Creat Clear Calc 73.00 Est GFR (MDRD) Af Amer 137 Est GFR (MDRD) Non-Af 113 BUN/Creatinine Ratio 17.7 Glucose 94 Calcium 7.9 L Troponin I Urine Color Urine Clarity Urine pH Ur Specific [place] Urine Protein Urine Glucose (UA) Urine Ketones Urine Occult Blood Urine Nitrite Urine Bilirubin Urine Urobilinogen Ur Leukocyte Esterase Urine RBC Urine WBC Ur Squamous Epith Cells Urine Bacteria Urine Mucus POC Glucose 06/21/18 06/21/18 06/21/18 11:57 08:19 06:28 POC Glucose 169 H 95 88 06/21/18 06/20/18 06/20/18 02:48 21:49 18:03 POC Glucose 105 207 H 239 H 06/20/18 14:30 POC Glucose 339 H Discharge Diet: Low fat/ Low Cholesterol, 1800 Calorie Control Diet, 2000 mg Sodium Diet Discharge Activity: Return to Normal Activity Home Medications: Medications to take at Discharge Aspirin E.C. [Ecotrin] 81 mg PO DAILY@0800 06/11/18 Atenolol [Tenormin] 100 mg PO DAILY 06/11/18 Atorvastatin Calcium [Lipitor] 80 mg PO QHS 06/11/18 Cholecalciferol (VIT D3) [Vitamin D3] 3 tab PO DAILY 06/11/18 Clopidogrel Bisulfate [Clopidogrel] 75 mg PO DAILY 06/11/18 Dextrose [Glucose] 4 tab PO PRN PRN 06/11/18 Escitalopram Oxalate [Lexapro] 10 mg PO DAILY 06/11/18 Finasteride [Proscar] 5 mg PO DAILY 06/11/18 Furosemide [Lasix] 20 mg PO DAILY 06/11/18 Insulin Regular, Human [Humulin R U-500 Kwikpen] 120 unit SQ LUNCH 06/11/18 Insulin Regular, Human [Humulin R U-500 Kwikpen] 140 unit SQ DINNER 06/11/18 Insulin Regular, Human [Humulin R U-500 Kwikpen] 175 unit SQ BREAKFAST 06/11/18 Ketoconazole 1 applicatio TP DAILY 06/11/18 Multivitamins,Ther W-Minerals [Multivitamin With Minerals] 1 tablet PO DAILY 06/11/18 Pantoprazole Sodium 40 mg PO BID 06/11/18 Ranolazine [Ranexa] 1,000 mg PO BID 06/11/18 Tamsulosin HCl [Flomax] 0.8 mg PO QHS 06/11/18 Norvasc 5 mg PO DAILY 06/20/18 Acetaminophen [Tylenol Tablet] 650 mg PO Q6H PRN PRN tablet 06/21/18 Primary Care Physician: [facility] [Primary Care Provider] - Please follow up with your Primary Care Physician in: 2 weeks Please Follow Up With: Cardiology - Keep prior appointment When: 2 days Disposition: Home Minutes spent on discharge:: 35 Patient Condition:: Stable Medical Necessity - Tobacco Use Smoking Status: Former smoker Tobacco Use: Cigarettes Meaningful Use Info Meaningful Use Diagnoses (Choose all that apply): None applicable <Mando Cheek - Last Filed: 06/21/18 13:41> Discharge Date and Diagnosis - Primary Discharge Diagnosis Active and Suspected Problems Abnormal EKG (Acute) Chest wall contusion (Acute) - Secondary Discharge Diagnosis Chronic Problems Left-sided weakness (Chronic) Hyperlipidemia (Chronic) Hypertension (Chronic) Obesity (Chronic) Pacemaker (Chronic) 2001 Chronic respiratory failure (Chronic) baseline 3L continuously CAD (coronary artery disease) (Chronic) Cardiac catheterization 02/24/2017?normal LV size should not, EF 55%, [place] multivessel CAD, patent SVG to diagonal 1, OM 2, and RCA, MASON to LAD previously reported as atretic/nonfunctional (not reevaluated at that time), advised medical therapy DM type 2 (diabetes mellitus, type 2) (Chronic) Obstructive sleep apnea (Chronic) Seizure (Chronic) Aphasia (Chronic) S/P CABG (coronary artery bypass graft) (Chronic) S/P PTCA (percutaneous transluminal coronary angioplasty) (Chronic) CVA (cerebral vascular accident) (Chronic) Residual left-sided weakness Hospital Course and Treatment Imaging Results: 06/21/18 06:31 Nuclear Stress Test - Chemical [NM] Routine Summary of Care Provided: This patient was seen in conjunction with Sridhar MÉNDEZ. I have independently interviewed and examined the patient and reviewed pertinent history, examination findings, laboratory and plan of management. I have reviewed the note and agree with the documented findings with the few additional points. In brief, the patient is a 68 year old M was admitted for right-sided rib pain after fall in the bathroom when he lost balance. New complaint of right-sided chest pain with radiation to left arm. Patient had negative chest x-ray. Since patient has significant coronary artery disease history EKG was done and showed T2 inversion in lead V2 and ST depression from V3 to V6. Serial troponin enzymes are negative. She was seen by counseling specialist. He recommended nuclear stress test which was done. Nuclear stress test showed no obvious evidence of ischemia. EF 62%. Patient is being discharged home. The patient's power of staff attorney, his declined rehab home health care director rn. Discharge medication reconciliation done. Discharge follow-up instructions completed. Discharge process discussed with the patient and all questions were answered to patient's satisfaction. Total time spent, exact 35 minutes on discharge meds reconciliation, examination, review of imaging and blood test and discussion with the patient on follow-up instructions. I have discussed my assessment with Sridhar MÉNDEZ and orders have been reviewed. [] Subjective: Seen and examined. Patient has aphasia from previous stroke. It seems patient understand simple questions but unable to speak out although he says incomprehensible words. He nods his head in yes or no Is to complain of chest pain from right to left. - Physical Exam General: Alert, Oriented x3, Cooperative HEENT: Atraumatic, PERRLA, EOMI, Normocephalic Neck: Supple, No JVD, Negative Carotid Bruits Lungs: Clear to auscultation, No rhonchi, No wheeze, No rales, Diminished Cardiovascular: Regular rate, Regular Rhythm, Normal S1, Normal S2, No murmurs Abdomen: Bowel Sounds Present, Soft, Non Tender, Non-Distended Extremities: No edema, Capillary Refill Less than 3 Seconds Skin: No rashes, No breakdown Musculoskeletal: No Tenderness to Palpation of Joints or Extremities, Arthritic Changes, Muscle Wasting Neurological: Cranial nerves II-XII grossly intact, Deep Tendon Reflexes 2+/4 and Symmetrical, Neuro grossly intact, - - dysarthric language deficit, aphasia and dysarthria Psych/Mental Status: Normal Affect, Appropriate Vital Signs Temp Pulse Resp BP Pulse Ox 98.4 F 63 16 141/58 H 97 06/21/18 13:00 06/21/18 13:00 06/21/18 13:00 06/21/18 13:00 06/21/18 13:00 Oxygen Flow Rate (L/min) 3 Oxygen Delivery Method Nasal Cannula Weight: 256 lb 2.834 oz Body Mass Index (BMI) 36.7 Finger Stick Blood Glucose 81 Intake and Output for Last 24 Hours 06/19/18 06/20/18 06/21/18 23:59 23:59 23:59 Intake Total 350 / 350 340 / 340 Output Total 200 / 200 875 / 875 Balance 150 / 150 -535 / -535 Laboratory Tests Past 24 Hrs 06/20/18 06/20/18 06/20/18 14:41 14:45 14:45 WBC 4.7 RBC 4.21 L Hgb 13.7 Hct 40.3 MCV 95.7 H MCH 32.5 H MCHC 34.0 RDW 14.0 RDW Differential 46.8 H Plt Count 129 L MPV 9.9 Immature Gran % (Auto) 0.200 Neut % (Auto) 72.8 H Lymph % (Auto) 18.[address] [place] % (Auto) 6.2 Eos % (Auto) 1.7 Baso % (Auto) 0.2 Absolute Neuts (auto) 3.4 Absolute Lymphs (auto) 0.88 Total Counted Not Reportable PT INR APTT Sodium 138 Potassium 4.2 Chloride 105 Carbon Dioxide 29.0 Anion Gap 4 L BUN 17 Creatinine 0.98 Estim Creat Clear Calc 74.49 Est GFR (MDRD) Af Amer 98 Est GFR (MDRD) Non-Af 81 BUN/Creatinine Ratio 17.4 Glucose 334 H Calcium 8.1 L Troponin I < 0.015 Urine Color Urine Clarity Urine pH Ur Specific [place] Urine Protein Urine Glucose (UA) Urine Ketones Urine Occult Blood Urine Nitrite Urine Bilirubin Urine Urobilinogen Ur Leukocyte Esterase Urine RBC Urine WBC Ur Squamous Epith Cells Urine Bacteria Urine Mucus 06/20/18 06/20/18 06/20/18 16:35 18:10 20:25 WBC RBC Hgb Hct MCV MCH MCHC RDW RDW Differential Plt Count MPV Immature Gran % (Auto) Neut % (Auto) Lymph % (Auto) [place] % (Auto) Eos % (Auto) Baso % (Auto) Absolute Neuts (auto) Absolute Lymphs (auto) Total Counted PT INR APTT Sodium Potassium Chloride Carbon Dioxide Anion Gap BUN Creatinine Estim Creat Clear Calc Est GFR (MDRD) Af Amer Est GFR (MDRD) Non-Af BUN/Creatinine Ratio Glucose Calcium Troponin I < 0.015 < 0.015 Urine Color Yellow Urine Clarity Clear Urine pH 6.0 Ur Specific [place] 1.015 Urine Protein 15 H Urine Glucose (UA) 250 H Urine Ketones 5 H Urine Occult Blood 50 H Urine Nitrite Negative Urine Bilirubin Negative Urine Urobilinogen Normal Ur Leukocyte Esterase Negative Urine RBC 5-10 SEEN Urine WBC 0 SEEN Ur Squamous Epith Cells 0-5 SEEN Urine Bacteria 0 SEEN Urine Mucus 0 SEEN 06/21/18 06/21/18 06/21/18 07:48 07:48 07:48 WBC 4.4 RBC 4.05 L Hgb 13.1 Hct 39.4 L MCV 97.3 H MCH 32.3 H MCHC 33.2 RDW 14.1 RDW Differential 50.2 H Plt Count 106 L MPV 10.1 Immature Gran % (Auto) 0.000 Neut % (Auto) 62.7 Lymph % (Auto) 26.2 [place] % (Auto) 7.7 Eos % (Auto) 2.9 Baso % (Auto) 0.5 Absolute Neuts (auto) 2.8 Absolute Lymphs (auto) 1.16 Total Counted Not Reportable PT 13.7 INR 1.1 APTT 36.5 H Sodium 140 Potassium 3.5 Chloride 105 Carbon Dioxide 32.0 Anion Gap 3 L BUN 13 Creatinine 0.73 Estim Creat Clear Calc 73.00 Est GFR (MDRD) Af Amer 137 Est GFR (MDRD) Non-Af 113 BUN/Creatinine Ratio 17.7 Glucose 94 Calcium 7.9 L Troponin I Urine Color Urine Clarity Urine pH Ur Specific [place] Urine Protein Urine Glucose (UA) Urine Ketones Urine Occult Blood Urine Nitrite Urine Bilirubin Urine Urobilinogen Ur Leukocyte Esterase Urine RBC Urine WBC Ur Squamous Epith Cells Urine Bacteria Urine Mucus POC Glucose 06/21/18 06/21/18 06/21/18 11:57 08:19 06:28 POC Glucose 169 H 95 88 06/21/18 06/20/18 06/20/18 02:48 21:49 18:03 POC Glucose 105 207 H 239 H 06/20/18 14:30 POC Glucose 339 H Code Visit Inpatient E&M: 88838 Disch Hosp
[2018-06-21] MEDS: Finasteride 5 MG Tablet PO (13:03)
[2018-06-21] MEDS: Pantoprazole Sodium 40 MG Tablet PO (13:03)
--- NOTE | 2018-06-21 13:03 | CASEMGMT ---
Addendum entered by Vida Karimi 06/21/18 13:15: Pt declines SNF and HHC at this time. Pt states no need for any further discharge planning/needs at this time and agrees. Pt/ voice no further concerns/needs at this time. Advised pt/ that they can have PCP order HHC if they change their mind once home, voices understanding. Obdulia BERRY CM Original Note: Clinicals faxed to the [place] transfer center at this time. Obdulia BERRY CM
[2018-06-21] MEDS: Escitalopram Oxalate 10 MG Tablet PO (13:04)
[2018-06-21] MEDS: Ranolazine 500 MG Tablet 1000 MG PO (13:04)
[2018-06-21] MEDS: Atenolol 100 MG Tablet PO (13:04)
[2018-06-21] MEDS: Furosemide 20 MG Tablet PO (13:04)
== END 2018-06-21 13:02 | disposition home or self-care (01) ==
LOC: ED 16:54 → PCU 17:20
PROVIDERS: Emergency Medicine; Internal Medicine Cardiovascular Disease; Admitting Provider Hospitalist; Emergency Provider Emergency Medicine; Referring Provider Hospitalist; Visit Provider Internal Medicine
DX: S20.211A Contusion of right front wall of thorax, initial encounter (principal); W18.2XXA Fall in (into) shower or empty bathtub, initial encounter; Y93.E1 Activity, personal bathing and showering; Y92.89 Other specified places as the place of occurrence of the external cause; I25.10 Atherosclerotic heart disease of native coronary artery without angina pectoris; E11.9 Type 2 diabetes mellitus without complications; J44.9 Chronic obstructive pulmonary disease, unspecified; I69.320 Aphasia following cerebral infarction; I69.322 Dysarthria following cerebral infarction; I69.354 Hemiplegia and hemiparesis following cerebral infarction affecting left non-dominant side; R41.82 Altered mental status, unspecified; R94.31 Abnormal electrocardiogram [ECG] [EKG]; E78.5 Hyperlipidemia, unspecified; I10 Essential (primary) hypertension; G47.33 Obstructive sleep apnea (adult) (pediatric); D69.6 Thrombocytopenia, unspecified; E66.9 Obesity, unspecified; J96.10 Chronic respiratory failure, unspecified whether with hypoxia or hypercapnia; F32.9 Major depressive disorder, single episode, unspecified; Z79.899 Other long term (current) drug therapy; Z79.82 Long term (current) use of aspirin; Z79.02 Long term (current) use of antithrombotics/antiplatelets; Z79.4 Long term (current) use of insulin; Z95.5 Presence of coronary angioplasty implant and graft; Z68.36 Body mass index [BMI] 36.0-36.9, adult; Z71.3 Dietary counseling and surveillance; Z99.81 Dependence on supplemental oxygen; Z87.891 Personal history of nicotine dependence; N40.0 Benign prostatic hyperplasia without lower urinary tract symptoms
CPT/HCPCS: 36415; 70450; 71250; 78452; 80048; 81001; 82962; 84484; 85025; 85610; 85730; 93005; 93017; 94002; 94003; 94640; 96374; 96376; 97162; 97166; 99218; 99285; A9500; A4216; G0378; J2785

== ENCOUNTER 2018-07-12 08:50 | Emergency (ER) | payer OTHER, SELFPAY ==
[2018-06-20 17:52] VITALS: BMI 36.7
[2018-07-12 08:51] VITALS: BP 152/88; PULSE 60; RESP 16; TEMP 37.2; O2SAT 99; BMI 43.8
--- NOTE | 2018-07-12 08:56 | EKG12_ITS ---
Test Reason : CP Blood Pressure : / mmHG Vent. Rate : 060 BPM Atrial Rate : 060 BPM P-R Int : 308 ms QRS Dur : 122 ms QT Int : 484 ms P-R-T Axes : 092 -21 077 degrees QTc Int : 484 ms Atrial-paced rhythm with prolonged AV conduction Nonspecific ST abnormality Abnormal ECG Confirmed by YUNI GUALLPA, JOANNA ([id number]), photographic editor NADINE FERRER ([id number]) on 07/14/2018 9:19:27 AM Referred By: JAMESON Confirmed By:JOANNA MORRISSEY MD
--- NOTE | 2018-07-12 09:10 | RAD_ITS ---
STUDY: X-RAY CHEST REASON FOR EXAM: Male, 68 years old. Chest pain. TECHNIQUE: Single AP portable view of the chest. COMPARISON: Chest x-ray 05/29/2018 FINDINGS: There is a left-sided dual-lead percutaneous pacemaker. Status post median sternotomy/CABG. There is eventration of the right hemidiaphragm. The lungs are clear and expanded. There is no demonstrated pleural abnormality. There is mild enlargement of the cardiac silhouette . Normal mediastinum and cata. Normal visualized pulmonary arteries. Normal visualized aortic arch and descending thoracic aorta. Normal visualized thoracic spine. Normal visualized ribs, clavicles, and shoulders. There is no demonstrated abnormality of the visualized soft tissue structures of the upper abdomen. RAD/Chest 1 View (Portable) IMPRESSION: No acute cardiopulmonary disease. Electronically Signed: Ron Krishna, at 9:39 EDT Tel , Service support ,
[2018-07-12 09:13] VITALS: O2SAT 100
[2018-07-12 09:16] LABS: Absolute Lymphocyte Count 0.88 X10^3/ul (0.83-4.51); Absolute Neutrophil Count 3.2 X10^3/uL (2.0-7.7); Basophil# 0.01 X10^3/uL; Basophil% 0.2 % (0-1); Eosinophil# 0.09 X10^3/uL; Hemoglobin 13.4 g/dl (13.0-16.5); Lymphocyte # 0.88 X10^3/ul (4.0); Lymphocyte % 19.7 % (19-41); Mean Corp Hgb Conc 33.5 g/gl (32-36); Mean Corpuscular Hgb 33.2 pg (27.0-32.0); Monocyte# 0.26 X10^3/uL; Monocyte% 5.8 % (0-10); Neutrophil # 3.22 X10^3/uL (2.7-7.7); Neutrophil % 72.3 % (47-70); POSITIVE COUNT NO; POSITIVE DIFFERENTIAL NO; POSITIVE MORPHOLOGY NO; Platelet Count 118 K/mm3 (150-450); RBC Distribution Width CV 14.5 % (11.6-14.6); RBC Distribution Width SD 50.5 fl (35.1-43.9); Red Blood Count 4.04 M/mm3 (4.6-6.2); White Blood Count 4.5 K/mm3 (4.4-11.0)
[2018-07-12 09:33] LABS: Anion Gap 9 (5-15); BUN 17 mg/dL (7-18); BUN/Creat Ratio 17.6 RATIO (10-20); Chloride 103 mmol/L (98-107); Creatinine, Serum 0.96 mg/dL (0.70-1.30); EST Glomerular Filtration Rate 82 mL/min (>60); Est Glom Filt Rate - Afr Amer 100 mL/min (>60); Estimated Creatinine Clearance 68.85 ml/min; Glucose 221 mg/dL (74-106); Potassium 3.9 mmol/L (3.5-5.1); Sodium Level 143 mmol/L (136-145)
[2018-07-12] MEDS: Aspirin 325 MG Tablet PO (09:34)
[2018-07-12] MEDS: morphine 8 MG/ML Syringe IV (09:34)
[2018-07-12] MEDS: Ondansetron 4 MG/2 ML Vial IV (09:34)
--- NOTE | 2018-07-12 09:38 | ED.VISSUMM ---
- ER Visit Summary Date of Service: 07/12/18 Chief Complaint: [] Chest pain since 6 PM yesterday History of Present Illness: The patient is a 68 M [] patient has history of CABG pacemaker, his cardiovascular procedures were done per the years ago, she indicates that his status is stable but he seen his digital account executive multiple times recently and the work-up was unremarkable he does not require any further management options, she has had a cardiac cath she believes first of the year 2018 that was negative showing no acute changes no need for further intervention. She indicates her has chronic intermittent chest pain syndrome the etiology of which is unclear. She indicates that last night around 6 PM he began complaining of chest pain, in the past please had chest pain she indicates she is had MIs [facility] he has chest pain he does not speak, the chest pain persisted into today and she brought him in for evaluation. She indicates usually his ED work-up was unremarkable he is normally treated with a shot of morphine he is able to go home. She indicates his review of systems otherwise negative he had no fever no cough no abdominal pain no numbness or paresthesias, she indicates that this chest pain he has is identical to previous chest pain episodes Physical Examination: [] Vital signs within normal range General, no distress resting comfortably, he is nonverbal he looks about nods his head looks back and forth to the per the when he has chest pain he becomes nonverbal she can explain that but this is a normal state for him, he cannot describe the chest pain or the neither can she HEENT is generally unremarkable The neck is supple no adenopathy Cardiovascular, regular rate and rhythm Lungs, clear bilateral Abdomen, soft nontender Extremities, no clubbing cyanosis or edema Neurologic, awake alert answering questions appropriately moving all 4 extremities Test Results: [] Emergency Department Course and Treatment: [] His EKG shows a paced rhythm, given his cardiac risk factors his age his symptomatology I believe it is prudent to obtain some screening labs chest x-ray EKG as above, I discussed all of the above with the she indicates that generally of his ED work-up was unremarkable he is able to be discharged home follow-up with his physicians and that the plan she would like to follow Patient is ED evaluation screening labs EKG chest x-ray all otherwise unremarkable as above, the patient did have a nuclear cardiac stress test in June of this year that was read as unremarkable by cardiology after therapy the and the patient couple discharge home he will follow-up with her digital account executive at the [facility] return for change in symptoms we discussed inpatient versus outpatient evaluation and the patient and family are comfortable discharge home for the management Treatment Plan: [] Disposition: [] Home stable declined admission Impression: [] Chief CABG cardiac pacemaker, history of chronic recurrent chest pain etiology unclear This note was generated with [employer] dictation software. It may contain incorrect words, spelling, and punctuation that were not noted in review of the chart prior to signing ED Disposition - Plan for ED Patient: [facility]: [facility] [Primary Care Provider] -
--- NOTE | 2018-07-12 09:41 | ED.DCSUM_ITS ---
- ER Visit Summary Date of Service: 07/12/18 Chief Complaint: [] Chest pain since 6 PM yesterday History of Present Illness: The patient is a 68 M [] patient has history of CABG pacemaker, his cardiovascular procedures were done per the years ago, she indicates that his status is stable but he seen his policy advisor multiple times recently and the work-up was unremarkable he does not require any further management options, she has had a cardiac cath she believes first of the year 2018 that was negative showing no acute changes no need for further intervention. She indicates her has chronic intermittent chest pain syndrome the etiology of which is unclear. She indicates that last night around 6 PM he began complaining of chest pain, in the past please had chest pain she indicates she is had MIs he goes to the [facility] where he has chest pain he does not speak, the chest pain persisted into today and she brought him in for evaluation. She indicates usually his ED work-up was unremarkable he is normally treated with a shot of morphine he is able to go home. She indicates his review of systems otherwise negative he had no fever no cough no abdominal pain no numbness or paresthesias, she indicates that this chest pain he has is identical to previous chest pain episodes Physical Examination: [] Vital signs within normal range General, no distress resting comfortably, he is nonverbal he looks about nods his head looks back and forth to the per the when he has chest pain he becomes nonverbal she can explain that but this is a normal state for him, he cannot describe the chest pain or the neither can she HEENT is generally unremarkable The neck is supple no adenopathy Cardiovascular, regular rate and rhythm Lungs, clear bilateral Abdomen, soft nontender Extremities, no clubbing cyanosis or edema Neurologic, awake alert answering questions appropriately moving all 4 extremities Test Results: [] Emergency Department Course and Treatment: [] His EKG shows a paced rhythm, g iven his cardiac risk factors his age his symptomatology I believe it is prudent to obtain some screening labs chest x-ray EKG as above, I discussed all of the above with the she indicates that generally of his ED work-up was unremarkable he is able to be discharged home follow-up with his physicians and that the plan she would like to follow Patient is ED evaluation screening labs EKG chest x-ray all otherwise unremarkable as above, the patient did have a nuclear cardiac stress test in June of this year that was read as unremarkable by cardiology after therapy the and the patient couple discharge home he will follow-up with her policy advisor at the [facility] return for change in symptoms we discussed inpatient versus outpatient evaluation and the patient and family are comfortable discharge home for the management Treatment Plan: [] Disposition: [] Home stable declined admission Impression: [] Chief CABG cardiac pacemaker, history of chronic recurrent chest pain etiology unclear This note was generated with One[employer] dictation software. It may contain incorrect words, spelling, and punctuation that were not noted in review of the chart prior to signing ED Disposition - Plan for ED Patient: [facility] [[facility] Provider] -
[2018-07-12 10:16] VITALS: BP 182/155; PULSE 60; RESP 18; O2SAT 96
--- NOTE | 2018-07-12 10:45 | ED.DEP ---
ED Disposition - Plan for ED Patient: Instructions: ED Chest Pain Atypical Unkn Cause [facility] [Primary Care Provider] -
[2018-07-12 11:10] VITALS: BP 168/94; PULSE 60; RESP 16; RESP 18; O2SAT 96
== END 2018-07-12 11:33 | disposition home or self-care (01) ==
LOC: ED 09:46
PROVIDERS: Emergency Provider Emergency Medicine
DX: R07.9 Chest pain, unspecified (principal); Z95.1 Presence of aortocoronary bypass graft; Z95.0 Presence of cardiac pacemaker
CPT/HCPCS: 71045; 80048; 84484; 85025; 93005; 96374; 96375; 99285; A4216; J2405

== ENCOUNTER 2018-07-20 17:44 | Observation (INO) | payer OTHER, SELFPAY ==
[2018-07-20 17:48] VITALS: BP 137/65; PULSE 61; RESP 18; TEMP 36.7; O2SAT 96; BMI 37.3
--- NOTE | 2018-07-20 18:20 | RAD_ITS ---
STUDY: X-RAY - LEFT WRIST REASON FOR EXAM: Male, 68 years old. Laceration TECHNIQUE: 3 view(s) of the wrist were obtained. COMPARISON: None. FINDINGS: Normal visualized distal radius and ulna. Normal radiocarpal articulation. Normal distal radioulnar articulation. Normal carpal bones. Normal carpal articulations. Normal carpometacarpal articulation of the thumb. Normal second through fifth carpometacarpal articulations. Normal visualized metacarpal bones. The soft tissue structures are unremarkable. RAD/Wrist min 3 Views IMPRESSION: Normal x-ray examination of the wrist. Electronically Signed: Ever Raines DO at 18:45 EDT Tel [phone], Service support ,
[2018-07-20] MEDS: HYDROcodone Bitartrate/Apap 5/325 Tablet PO (18:25)
[2018-07-20] MEDS: Diphth,Pertuss(Acell),Tet Vac 0.5 ML Vial IM (18:26)
[2018-07-20] MEDS: Ondansetron ODT 4 MG Tablet PO (18:35)
--- NOTE | 2018-07-20 18:56 | CT_ITS ---
STUDY: CT BRAIN WITHOUT CONTRAST REASON FOR EXAM: Male, 68 years old. Altered mental status RADIATION DOSAGE (If Supplied By Facility): CTDIvol = ( 44.99 ) mGy, DLP = ( 812.98 ) mGycm TECHNIQUE: Transaxial CT imaging of the brain was performed without administration of intravenous contrast material. Individualized dose optimization techniques were used for this CT. COMPARISON: No relevant priors. FINDINGS: Normal soft tissue structures. Normal calvarium. Normal size ventricles and extra-axial spaces for the patient's age. Mild white matter microangiopathic ischemic changes of the cerebral hemispheres. Normal basal ganglia and thalami. Normal brainstem. Normal cerebellum. There is no intracranial hemorrhage. There are no findings of an acute ischemic infarction. Normal visualized paranasal sinuses. CT/Brain/Head without Contrast IMPRESSION: Mild age-related changes of the brain. Electronically Signed: Ever Raines DO at 20:13 EDT Tel [phone], Service support ,
--- NOTE | 2018-07-20 18:56 | EKG12_ITS ---
Test Reason : Blood Pressure : / mmHG Vent. Rate : 060 BPM Atrial Rate : 060 BPM P-R Int : 250 ms QRS Dur : 122 ms QT Int : 492 ms P-R-T Axes : 091 -32 086 degrees QTc Int : 492 ms Atrial-paced rhythm with prolonged AV conduction Left axis deviation Non-specific intra-ventricular conduction delay Nonspecific ST and T wave abnormality Abnormal ECG Confirmed by DI MCCAIN ([id number]), fan mail editor MODESTA FISHMAN ([id number]) on 07/23/2018 6:11:31 AM Referred By: Lamar Brown Confirmed By:DI MCCAIN
[2018-07-20 19:06] LABS: Absolute Lymphocyte Count 1.12 X10^3/ul (0.83-4.51); Absolute Neutrophil Count 3.5 X10^3/uL (2.0-7.7); Basophil# 0.01 X10^3/uL; Basophil% 0.2 % (0-1); Eosinophil# 0.07 X10^3/uL; Eosinophils% 1.4 % (0-5); Hematocrit 36.2 % (40-54); Lymphocyte # 1.12 X10^3/ul (4.0); Mean Corp Hgb Conc 33.1 g/gl (32-36); Mean Corpuscular Hgb 32.8 pg (27.0-32.0); Mean Corpuscular Volume 98.9 fL (80-94); Mean Platelet Vol. 10.3 fl (6.2-12.0); Monocyte# 0.35 X10^3/uL; Monocyte% 6.9 % (0-10); Neutrophil # 3.53 X10^3/uL (2.7-7.7); Neutrophil % 69.1 % (47-70); POSITIVE COUNT NO; POSITIVE DIFFERENTIAL NO; POSITIVE MORPHOLOGY NO; Platelet Count 156 K/mm3 (150-450); RBC Distribution Width CV 14.6 % (11.6-14.6); RBC Distribution Width SD 50.8 fl (35.1-43.9); Red Blood Count 3.66 M/mm3 (4.6-6.2); White Blood Count 5.1 K/mm3 (4.4-11.0)
[2018-07-20 19:07] VITALS: O2SAT 98
--- NOTE | 2018-07-20 19:15 | RAD_ITS ---
STUDY: X-RAY CHEST REASON FOR EXAM: Male, 68 years old. Altered mental status TECHNIQUE: Frontal view COMPARISON: July 12, 2018 FINDINGS: Stable sternotomy wires and left-sided pacemaker. The lungs are not fully expanded. There is no demonstrated pleural abnormality. Stable cardiomegaly. Normal mediastinum and cata. Normal visualized pulmonary arteries. Normal visualized aortic arch and descending thoracic aorta. Normal visualized thoracic spine. Degenerative changes at the shoulders. There is no demonstrated abnormality of the visualized soft tissue structures of the upper abdomen. RAD/Chest 1 View (Portable) IMPRESSION: Stable cardiomegaly. Electronically Signed: Ever Raines DO at 20:08 EDT Tel [phone], Service support ,
[2018-07-20 19:16] LABS: Anion Gap 9 (5-15); BUN 20 mg/dL (7-18); BUN/Creat Ratio 16.8 RATIO (10-20); Chloride 103 mmol/L (98-107); Creatinine, Serum 1.19 mg/dL (0.70-1.30); EST Glomerular Filtration Rate 65 mL/min (>60); Est Glom Filt Rate - Afr Amer 78 mL/min (>60); Estimated Creatinine Clearance 61.34 ml/min; Glucose 234 mg/dL (74-106); Potassium 3.9 mmol/L (3.5-5.1); Sodium Level 140 mmol/L (136-145)
[2018-07-20 20:07] VITALS: PULSE 60; RESP 16; O2SAT 99
--- NOTE | 2018-07-20 21:30 | PCM.HP.STD ---
Problem List (1) Chest pain Status: Acute Qualifiers: Chest pain type: unspecified Qualified Code(s): R07.9 - Chest pain, unspecified (2) Hyperlipidemia Status: Chronic Qualifiers: Hyperlipidemia type: unspecified Qualified Code(s): E78.5 - Hyperlipidemia, unspecified (3) Hypertension Status: Chronic Qualifiers: Hypertension type: essential hypertension Qualified Code(s): I10 - Essential (primary) hypertension (4) Obesity Status: Chronic Qualifiers: Obesity type: due to excess calories (5) Pacemaker Status: Chronic Comment: 2001 (6) CAD (coronary artery disease) Status: Chronic Qualifiers: Coronary Disease-Associated Artery/Lesion type: [place] artery [place] vs. transplanted heart: [place] heart Associated angina: without angina Qualified Code(s): I25.10 - Atherosclerotic heart disease of [place] coronary artery without angina pectoris Comment: Cardiac catheterization 02/24/2017?normal LV size should not, EF 55%, [place] multivessel CAD, patent SVG to diagonal 1, OM 2, and RCA, MASON to LAD previously reported as atretic/nonfunctional (not reevaluated at that time), advised medical therapy (7) DM type 2 (diabetes mellitus, type 2) Status: Chronic Qualifiers: Diabetes mellitus correction insulin use: with correction use Diabetes mellitus complication status: with unspecified complications Qualified Code(s): E11.8 - Type 2 diabetes mellitus with unspecified complications; Z79.4 - halfway (current) use of insulin (8) Obstructive sleep apnea Status: Chronic (9) Seizure Status: Chronic Qualifiers: (10) S/P CABG (coronary artery bypass graft) Status: Chronic (11) S/P PTCA (percutaneous transluminal coronary angioplasty) Status: Chronic (12) CVA (cerebral vascular accident) Status: Chronic Qualifiers: CVA mechanism: unspecified Comment: Residual left-sided weakness History of Present Illness Date of Admission: 07/20/18 Chief Complaint: Chest pain The patient is a 68 y/o M w/ PMHx: ? Seizure disorder, EKATERINA on BIPAP, HTN, HLD, Diabetes mellitus type II, CAD s/p CABG, Hx Pacemaker, Hx CVA, Frequent Syncopal history with negative work-up prior, Frequent chest pain presentations w/ recent 06/2018 unremarkable stress testing with most recent cardiac catheterization 02/2017 who presents to the [facility] ED on 07/20/18 secondary to accidentally cutting his R hand on a metal shingle with then incidentally noted, acute on chronic chest pain, intermittent baseline, similar presentation however increased severity, noting diffuse across the chest with left upper extremity paresthesias, normal 4-5/10; however, states has been 7-8/10 x 2 days now. In the ED patient secondary to chest pain as well as hand trauma given narcotics, noted to be more lethargic and mumbling following with appropriate orientation, improved with confirming that patient is very sensitive to narcotics. Staff very familiar with patient confirmed that his speech is his baseline. In the ED evaluation of the left hand with shallow laceration, no deep trauma, washed with unremarkable plain film, sutured and tetanus updated. Work-up in the ED included T 98, heart rate 61, BP 137/65, respiratory rate 18, 96% on room air, CBC with WBC 5.1, heme globin 12, platelets 156 without shift, BMP unremarkable aside glucose 234, troponin less than 0.015, EKG with no acute evidence of ischemia, chest x-ray with no acute cardio primary findings, CT head with no acute intracranial findings. Past Medical History Past Medical History (Chronic Problems): Chronic Problems Left-sided weakness (Chronic) Hyperlipidemia (Chronic) Hypertension (Chronic) Obesity (Chronic) Pacemaker (Chronic) 2001 Chronic respiratory failure (Chronic) baseline 3L continuously CAD (coronary artery disease) (Chronic) Cardiac catheterization 02/24/2017?normal LV size should not, EF 55%, [place] multivessel CAD, patent SVG to diagonal 1, OM 2, and RCA, MASON to LAD previously reported as atretic/nonfunctional (not reevaluated at that time), advised medical therapy DM type 2 (diabetes mellitus, type 2) (Chronic) Obstructive sleep apnea (Chronic) Seizure (Chronic) Aphasia (Chronic) S/P CABG (coronary artery bypass graft) (Chronic) S/P PTCA (percutaneous transluminal coronary angioplasty) (Chronic) CVA (cerebral vascular accident) (Chronic) Residual left-sided weakness Allergies ezetimibe Allergy (Verified 07/20/18 17:53) Unknown Fish Containing Products Allergy (Verified 07/20/18 17:53) Unknown glyburide Allergy (Verified 07/20/18 17:53) Unknown lisinopril Allergy (Verified 07/20/18 17:53) Unknown metformin Allergy (Verified 07/20/18 17:53) Nausea metoprolol Allergy (Verified 07/20/18 17:53) Unknown simvastatin Allergy (Verified 07/20/18 17:53) Unknown Home Medications: Ambulatory Orders Medication Instructions Recorded Aspirin E.C. [Ecotrin] 81 mg PO DAILY@0800 06/11/18 Atenolol [Tenormin] 100 mg PO DAILY 06/11/18 Atorvastatin Calcium [Lipitor] 80 mg PO QHS 06/11/18 Cholecalciferol (VIT D3) [Vitamin 3 tab PO DAILY 06/11/18 D3] Clopidogrel Bisulfate [Clopidogrel] 75 mg PO DAILY 06/11/18 Dextrose [Glucose] 4 tab PO PRN PRN 06/11/18 Escitalopram Oxalate [Lexapro] 10 mg PO DAILY 06/11/18 Finasteride [Proscar] 5 mg PO DAILY 06/11/18 Furosemide [Lasix] 20 mg PO DAILY 06/11/18 Insulin Regular, Human [Humulin R 120 unit SQ LUNCH 06/11/18 U-500 Kwikpen] Insulin Regular, Human [Humulin R 140 unit SQ DINNER 06/11/18 U-500 Kwikpen] Insulin Regular, Human [Humulin R 175 unit SQ BREAKFAST 06/11/18 U-500 Kwikpen] Ketoconazole 1 applicatio TP DAILY 06/11/18 Multivitamins,Ther W-Minerals 1 tablet PO DAILY 06/11/18 [Multivitamin With Minerals] Pantoprazole Sodium 40 mg PO BID 06/11/18 Ranolazine [Ranexa] 1,000 mg PO BID 06/11/18 Tamsulosin HCl [Flomax] 0.8 mg PO QHS 06/11/18 Norvasc 5 mg PO DAILY 06/20/18 Acetaminophen [Tylenol Tablet] 650 mg PO Q6H PRN PRN tablet 06/21/18 Levetiracetam [Keppra] 500 mg PO BID 07/20/18 Surgical History: angioplasty, coronary bypass surgery, pacemaker implantation, - - cabg,cholecystectemy, hernia, left knee, 4 stents Psychiatric History: Depression Lives: Spouse/ Significant Other Smoking Status: Former smoker Tobacco Use: Non-smoker Alcohol: None Drugs: None - *Family History Maternal History Items: Heart Disease Paternal History Items: - - Patient does not know his paternal family history. Review of Systems Constitutional: Reports: Malaise, Weakness, Fatigue. Denies: Chills, Fever, Weight Change HEENT: Denies: Head Aches, Sinus Congestion, Sinus Drainage Cardiovascular: Reports: Chest Pain, Edema, Syncope. Denies: Chest Pressure, Chest Tightness, Light Headedness, Orthopnea, Palpitations Respiratory: Reports: Shortness of breath upon exertion. Denies: Cough, Shortness of breath at rest, Sputum production Gastrointestinal: Denies: Abdominal Pain, Nausea, Vomiting Genitourinary: Denies: Dysuria Musculoskeletal: Reports: Back Pain, Joint Pain. Denies: Joint Tenderness Skin: Denies: Rash, Wounds Neurological: Denies: Numbness, Tingling, Focal weakness Psychiatric: Reports: Anxiety, Depression. Denies: Homicidal Ideations, Suicidal Ideations Hematologic/ Lymphatic: Reports: Anemia, Easy Bruising, Easy Bleeding VTE Information - Inpt Only VTE Present on Admission: No VTE Mechan Device Prophylaxis: SCD's VTE Pharm Prophylaxis ordered?: Yes Patient Problems: Active and Suspected Problems Chest pain (Acute) Subjective: Seated upright in the ED bed, fatigued appearance, notes ongoing chest discomfort although does not appear in severe distress. Objective: Physical Examination: General: awake, alert, oriented x 3 and cooperative, seated upright in the ED bed in no apparent distress although noting ongoing chest discomfort. Skin: normal color, turgor, no icterus, cyanosis except some mild chronic venous stasis changes to bilateral lower extremities. HEENT: AT/NC, EOMI, PERRLA, mildly dry MM, no carotid bruits or JVD noted; however, thickened neck makes examination difficult. Lungs: CTA bilaterally, moderate effort, moderate decrease BL bases, no rales, ronchi or wheezing. Heart: Regular rate and rhythm; no gallop, rub audible, midsternal reproducible chest discomfort with palpation. Abdomen: soft, morbidly obese, NTTP, ND, normal BS, no HSM; however, habitus makes examination difficult. Extremities: no cyanosis, clubbing, chronic left lower extremity pedal to distal minaya edema following CABG. Neurological: patient awake, alert, oriented x 3; cognitive function intact; pupils equally reactive to light and accomodation; cranial nerves II-XII grossly normal, moving all 4 extremities, no focal deficits, strength moderately globally decreased secondary to acute presentation, chronic dysarthria with mild mumbling. Psychiatric: affect appears fatigued, no acute evidence of depressive or anxiety feelings. - Physical Exam Vital Signs Temp Pulse Resp BP Pulse Ox 98.0 F 60 16 137/65 H 99 07/20/18 17:48 07/20/18 20:07 07/20/18 20:07 07/20/18 17:48 07/20/18 20:07 Oxygen Delivery Method Room Air Weight: 260 lb 2.327 oz Body Mass Index (BMI) 37.3 Finger Stick Blood Glucose 81 Laboratory Tests Past 24 Hrs 07/20/18 07/20/18 17:55 17:55 WBC 5.1 RBC 3.66 L Hgb 12.0 L Hct 36.2 L MCV 98.9 H MCH 32.8 H MCHC 33.1 RDW 14.6 RDW Differential 50.8 H Plt Count 156 MPV 10.3 Immature Gran % (Auto) 0.400 Neut % (Auto) 69.1 Lymph % (Auto) 22.0 [place] % (Auto) 6.9 Eos % (Auto) 1.4 Baso % (Auto) 0.2 Absolute Neuts (auto) 3.5 Absolute Lymphs (auto) 1.12 Total Counted Not Reportable Sodium 140 Potassium 3.9 Chloride 103 Carbon Dioxide 28.0 Anion Gap 9 BUN 20 H Creatinine 1.19 Estim Creat Clear Calc 61.34 Est GFR (MDRD) Af Amer 78 Est GFR (MDRD) Non-Af 65 BUN/Creatinine Ratio 16.8 Glucose 234 H Calcium 8.0 L Troponin I < 0.015 Assessment/Plan All Active Problems Chest pain (Acute) Abnormal EKG (Acute) Chest wall contusion (Acute) Atypical chest pain (Acute) The patient is a 68 y/o M w/ PMHx: ? Seizure disorder, EKATERINA on BIPAP, HTN, HLD, Diabetes mellitus type II, CAD s/p CABG, Hx Pacemaker, Hx CVA, Frequent Syncopal history with negative work-up prior, Frequent chest pain presentations w/ recent 06/2018 unremarkable stress testing with most recent cardiac catheterization 02/2017 who presents to the [facility] ED on 07/20/18 secondary to accidentally cutting his R hand on a metal shingle with then incidentally noted, acute on chronic chest pain, intermittent baseline, similar presentation however increased severity, noting diffuse across the chest with left upper extremity paresthesias, normal 4-5/10; however, states has been 7-8/10 x 2 days now. (1) Acute on Chronic Chest Pain: Work-up in the ED included T 98, heart rate 61, BP 137/65, respiratory rate 18, 96% on room air, CBC with WBC 5.1, heme globin 12, platelets 156 without shift, BMP unremarkable aside glucose 234, troponin less than 0.015, EKG with no acute evidence of ischemia, chest x-ray with no acute cardio primary findings, CT head with no acute intracranial findings. Recent 06/2018 admission with unremarkable stress testing. Does have frequent presentations for chest pain, notes above his baseline. Cardiac catheterization 02/2017 w/ eevated Left Ventricular End Diastolic Pressure, normal LV size, wall motion,and systolic function, LVEF by LV gram 55 %, [place] Multivessel CAD, MASON to the LAD previously reported as atretic and nonfunctional, SVG to the Dx 1: patent, SVG to the OM 2: patent, SVG to the RCA: patent. Continued on asa, plavix, BB, statin, Ranexa. Will admit to PCU, place on a monitored bed to assure no acute myocardial infarction with serial cardiac enzymes and EKGs. ASA, NG, morphine. FLP in AM. Cardiology requested given recent evaluations performed. (2) CAD: s/p CABG, continue home regimen asa, plavix, statin, BB. (3) Hypertension: Continue home regimen including atenolol, Lasix, Norvasc, PRN hydralazine. (4) Hyperlipidemia: Continue home statin regimen. AM FLP. (5) History of stroke: Continue home aspirin, Plavix, BP regimen, statin therapy, diabetic regimen. (6) Diabetes mellitus type II: Continue home insulin regimen, ADA diet, accu checks w/ ISS. (7) Morbid Obesity: Weight loss and lifestyle changes encouraged, nutrition consulted. (8) ? Seizure disorder: Continue home Keppra regimen. (9) EKATERINA: Continue home q HS BIPAP. (10) Anxiety and depression: Continue home Lexapro regimen. (11) BPH: Continue home Proscar and Flomax regimen. (12) GERD: PPI. (13) DVT Prophylaxis: SCDs, lovenox. Code Visit OBSV E&M: 39805 Initial observation care L3
--- NOTE | 2018-07-20 21:34 | ED.RN ---
CALLED [facility], SPOKE TO AIDEE ([facility] TO ADVISE THE NEED TO ADMIT THIS PT
--- NOTE | 2018-07-20 21:35 | HP.PCM_ITS ---
Problem List (1) Chest pain Status: Acute Qualifiers: Chest pain type: unspecified Qualified Code(s): R07.9 - Chest pain, unspecified (2) Hyperlipidemia Status: Chronic Qualifiers: Hyperlipidemia type: unspecified Qualified Code(s): E78.5 - Hyperlipidemia, unspecified (3) Hypertension Status: Chronic Qualifiers: Hypertension type: essential hypertension Qualified Code(s): I10 - Essential (primary) hypertension (4) Obesity Status: Chronic Qualifiers: Obesity type: due to excess calories (5) Pacemaker Status: Chronic Comment: 2001 (6) CAD (coronary artery disease) Status: Chronic Qualifiers: Coronary Disease-Associated Artery/Lesion type: eagle artery [place] vs. transplanted heart: eagle heart Associated angina: without angina Qualified Code(s): I25.10 - Atherosclerotic heart disease of eagle coronary artery without angina pectoris Comment: Cardiac catheterization 02/24/2017?normal LV size should not, EF 55%, eagle multivessel CAD, patent SVG to diagonal 1, OM 2, and RCA, MASON to LAD previously reported as atretic/nonfunctional (not reevaluated at that time), advised medical therapy (7) DM type 2 (diabetes mellitus, type 2) Status: Chronic Qualifiers: Diabetes mellitus half-way insulin use: with half-way use Diabetes mellitus complication status: with unspecified complications Qualified Code(s): E11.8 - Type 2 diabetes mellitus with unspecified complications; Z79.4 - MCFP (current) use of insulin (8) Obstructive sleep apnea Status: Chronic (9) Seizure Status: Chronic Qualifiers: (10) S/P CABG (coronary artery bypass graft) Status: Chronic (11) S/P PTCA (percutaneous transluminal coronary angioplasty) Status: Chronic (12) CVA (cerebral vascular accident) Status: Chronic Qualifiers: CVA mechanism: unspecified Comment: Residual left-sided weakness History of Present Illness Date of Admission: 07/20/18 Chief Complaint: Chest pain The patient is a 68 y/o M w/ PMHx: ? Seizure disorder, EKATERINA on BIPAP, HTN, HLD, Diabetes mellitus type II, CAD s/p CABG, Hx Pacemaker, Hx CVA, Frequent Syncopal history with negative work-up prior, Frequent chest pain presentations w/ recent 06/2018 unremarkable stress testing with most recent cardiac catheterization 02/2017 who presents to the [facility] ED on 07/20/18 secondary to accidentally cutting his R hand on a metal shingle with then incidentally noted, acute on chronic chest pain, intermittent baseline, similar presentation however increased severity, noting diffuse across the chest with left upper extremity paresthesias, normal 4-5/10; however, states has been 7-8/10 x 2 days now. In the ED patient secondary to chest pain as well as hand trauma given narcotics, noted to be more lethargic and mumbling following with appropriate orientation, improved with confirming that patient is very sensitive to narcotics. Staff very familiar with patient confirmed that his speech is his baseline. In the ED evaluation of the left hand with shallow laceration, no deep trauma, washed with unremarkable plain film, sutured and tetanus updated. Work-up in the ED included T 98, heart rate 61, BP 137/65, respiratory rate 18, 96% on room air, CBC with WBC 5.1, heme globin 12, platelets 156 without shift, BMP unremarkable aside glucose 234, troponin less than 0.015, EKG with no acute evidence of i schemia, chest x-ray with no acute cardio primary findings, CT head with no acute intracranial findings. Past Medical History Past Medical History (Chronic Problems): Chronic Problems Left-sided weakness (Chronic) Hyperlipidemia (Chronic) Hypertension (Chronic) Obesity (Chronic) Pacemaker (Chronic) 2001 Chronic respiratory failure (Chronic) baseline 3L continuously CAD (coronary artery disease) (Chronic) Cardiac catheterization 02/24/2017?normal LV size should not, EF 55%, eagle multivessel CAD, patent SVG to diagonal 1, OM 2, and RCA, MASON to LAD previously reported as atretic/nonfunctional (not reevaluated at that time), advised medical therapy DM type 2 (diabetes mellitus, type 2) (Chronic) Obstructive sleep apnea (Chronic) Seizure (Chronic) Aphasia (Chronic) S/P CABG (coronary artery bypass graft) (Chronic) S/P PTCA (percutaneous transluminal coronary angioplasty) (Chronic) CVA (cerebral vascular accident) (Chronic) Residual left-sided weakness Allergies ezetimibe Allergy (Verified 07/20/18 17:53) Unknown Fish Containing Products Allergy (Verified 07/20/18 17:53) Unknown glyburide Allergy (Verified 07/20/18 17:53) Unknown lisinopril Allergy (Verified 07/20/18 17:53) Unknown metformin Allergy (Verified 07/20/18 17:53) Nausea metoprolol Allergy (Verified 07/20/18 17:53) Unknown simvastatin Allergy (Verified 07/20/18 17:53) Unknown Home Medications: Ambulatory Orders Medication Instructions Recorded Aspirin E.C. [Ecotrin] 81 mg PO DAILY@0800 06/11/18 Atenolol [Tenormin] 100 mg PO DAILY 06/11/18 Atorvastatin Calcium [Lipitor] 80 mg PO QHS 06/11/18 Cholecalciferol (VIT D3) [Vitamin 3 tab PO DAILY 06/11/18 D3] Clopidogrel Bisulfate [Clopidogrel] 75 mg PO DAILY 06/11/18 Dextrose [Glucose] 4 tab PO PRN PRN 06/11/18 Escitalopram Oxalate [Lexapro] 10 mg PO DAILY 06/11/18 Finasteride [Proscar] 5 mg PO DAILY 06/11/18 Furosemide [Lasix] 20 mg PO DAILY 06/11/18 Insulin Regular, Human [Humulin R 120 unit SQ LUNCH 06/11/18 U-500 Kwikpen] Insulin Regular, Human [Humulin R 140 unit SQ DINNER 06/11/18 U-500 Kwikpen] Insulin Regular, Human [Humulin R 175 unit SQ BREAKFAST 06/11/18 U-500 Kwikpen] Ketoconazole 1 applicatio TP DAILY 06/11/18 Multivitamins,Ther W-Minerals 1 tablet PO DAILY 06/11/18 [Multivitamin With Minerals] Pantoprazole Sodium 40 mg PO BID 06/11/18 Ranolazine [Ranexa] 1,000 mg PO BID 06/11/18 Tamsulosin HCl [Flomax] 0.8 mg PO QHS 06/11/18 Norvasc 5 mg PO DAILY 06/20/18 Acetaminophen [Tylenol Tablet] 650 mg PO Q6H PRN PRN tablet 06/21/18 Levetiracetam [Keppra] 500 mg PO BID 07/20/18 Surgical History: angioplasty, coronary bypass surgery, pacemaker implantation, - - cabg,cholecystectemy, hernia, left knee, 4 stents Psychiatric History: Depression Lives: Spouse/ Significant Other Smoking Status: Former smoker Tobacco Use: Non-smoker Alcohol: None Drugs: None - *Family History Maternal History Items: Heart Disease Paternal History Items: - - Patient does not know his paternal family history. Review of Systems Constitutional: Reports: Malaise, Weakness, Fatigue. Denies: Chills, Fever, Weight Change HEENT: Denies: Head Aches, Sinus Congestion, Sinus Drainage Cardiovascular: Reports: Chest Pain, Edema, Syncope. Denies: Chest Pressure, Chest Tightness, Light Headedness, Orthopnea, Palpitations Respiratory: Reports: Shortness of breath upon exertion. Denies: Cough, Shortness of breath at rest, Sputum production Gastrointestinal: Denies: Abdominal Pain, Nausea, Vomiting Genitourinary: Denies: Dysuria Musculoskeletal: Reports: Back Pain, Joint Pain. Denies: Joint Tenderness Skin: Denies: Rash, Wounds Neurological: Denies: Numbness, Tingling, Focal weakness Psychiatric: Reports: Anxiety, Depression. Denies: Homicidal Ideations, Suicidal Ideations Hematologic/ Lymphatic: Reports: Anemia, Easy Bruising, Easy Bleeding VTE Information - Inpt Only VTE Present on Admission: No VTE Mechan Device Prophylaxis: SCD's VTE Pharm Prophylaxis ordered?: Yes Patient Problems: Active and Suspected Problems Chest pain (Acute) Subjective: Seated upright in the ED bed, fatigued appearance, notes ongoing chest discomfort although does not appear in severe distress. Objective: Physical Examination: General: awake, alert, oriented x 3 and cooperative, seated upright in the ED bed in no apparent distress although noting ongoing chest discomfort. Skin: normal color, turgor, no icterus, cyanosis except some mild chronic venous stasis changes to bilateral lower extremities. HEENT: AT/NC, EOMI, PERRLA, mildly dry MM, no carotid bruits or JVD noted; however, thickened neck makes examination difficult. Lungs: CTA bilaterally, moderate effort, moderate decrease BL bases, no rales, ronchi or wheezing. Heart: Regular rate and rhythm; no gallop, rub audible, midsternal reproducible chest discomfort with palpation. Abdomen: soft, morbidly obese, NTTP, ND, normal BS, no HSM; however, habitus makes examination difficult. Extremities: no cyanosis, clubbing, chronic left lower extremity pedal to distal minaya edema following CABG. Neurological: patient awake, alert, oriented x 3; cognitive function intact; pupils equally reactive to light and accomodation; cranial nerves II-XII grossly normal, moving all 4 extremities, no focal deficits, strength moderately globally decreased secondary to acute presentation, chronic dysarthria with mild mumbling. Psychiatric: affect appears fatigued, no acute evidence of depressive or anxiety feelings. - Physical Exam Vital Signs Temp Pulse Resp BP Pulse Ox 98.0 F 60 16 137/65 H 99 07/20/18 17:48 07/20/18 20:07 07/20/18 20:07 07/20/18 17:48 07/20/18 20:07 Oxygen Delivery Method Room Air Weight: 260 lb 2.327 oz Body Mass Index (BMI) 37.3 Finger Stick Blood Glucose 81 Laboratory Tests Past 24 Hrs 07/20/18 07/20/18 17:55 17:55 WBC 5.1 RBC 3.66 L Hgb 12.0 L Hct 36.2 L MCV 98.9 H MCH 32.8 H MCHC 33.1 RDW 14.6 RDW Differential 50.8 H Plt Count 156 MPV 10.3 Immature Gran % (Auto) 0.400 Neut % (Auto) 69.1 Lymph % (Auto) 22.0 [place] % (Auto) 6.9 Eos % (Auto) 1.4 Baso % (Auto) 0.2 Absolute Neuts (auto) 3.5 Absolute Lymphs (auto) 1.12 Total Counted Not Reportable Sodium 140 Potassium 3.9 Chloride 103 Carbon Dioxide 28.0 Anion Gap 9 BUN 20 H Creatinine 1.19 Estim Creat Clear Calc 61.34 Est GFR (MDRD) Af Amer 78 Est GFR (MDRD) Non-Af 65 BUN/Creatinine Ratio 16.8 Glucose 234 H Calcium 8.0 L Troponin I < 0.015 Assessment/Plan All Active Problems Chest pain (Acute) Abnormal EKG (Acute) Chest wall contusion (Acute) Atypical chest pain (Acute) The patient is a 68 y/o M w/ PMHx: ? Seizure disorder, EKATERINA on BIPAP, HTN, HLD, Diabetes mellitus type II, CAD s/p CABG, Hx Pacemaker, Hx CVA, Frequent Syncopal history with negative work-up prior, Frequent chest pain presentations w/ recent 06/2018 unremarkable stress testing with most recent cardiac catheterization 02/2017 who presents to the [facility] ED on 07/20/18 secondary to accidentally cutting his R hand on a metal shingle with then incidentally noted, acute on chronic chest pain, intermittent baseline, similar presentation however increased severity, noting diffuse across the chest with left upper extremity paresthesias, normal 4-5/10; however, states has been 7-8/10 x 2 days now. (1) Acute on Chronic Chest Pain: Work-up in the ED included T 98, heart rate 61, BP 137/65, respiratory rate 18, 96% on room air, CBC with WBC 5.1, heme globin 12, platelets 156 without shift, BMP unremarkable aside glucose 234, troponin less than 0.015, EKG with no acute evidence of ischemia, chest x-ray with no acute cardio primary findings, CT head with no acute intracranial findings. Recent 06/2018 admission with unremarkable stress testing. Does have frequent presentations for chest pain, notes above his baseline. Cardiac catheterization 02/2017 w/ eevated Left Ventricular End Diastolic Pressure, normal LV size, wall motion,and systolic function, LVEF by LV gram 55 %, eagle Multivessel CAD, MASON to the LAD previously reported as atretic and nonfunctional, SVG to the Dx 1: patent, SVG to the OM 2: patent, SVG to the RCA: patent. Continued on asa, plavix, BB, statin, Ranexa. Will admit to PCU, place on a monitored bed to assure no acute myocardial infarction with serial cardiac enzymes and EKGs. ASA, NG, morphine. FLP in AM. Cardiology requested given recent evaluations performed. (2) CAD: s/p CABG, continue home regimen asa, plavix, statin, BB. (3) Hypertension: Continue home regimen including atenolol, Lasix, Norvasc, PRN hydralazine. (4) Hyperlipidemia: Continue home statin regimen. AM FLP. (5) History of stroke: Continue home aspirin, Plavix, BP regimen, statin therapy, diabetic regimen. (6) Diabetes mellitus type II: Continue home insulin regimen, ADA diet, accu checks w/ ISS. (7) Morbid Obesity: Weight loss and lifestyle changes encouraged, nutrition consulted. (8) ? Seizure disorder: Continue home Keppra regimen. (9) EKATERINA: Continue home q HS BIPAP. (10) Anxiety and depression: Continue home Lexapro regimen. (11) BPH: Continue home Proscar and Flomax regimen. (12) GERD: PPI. (13) DVT Prophylaxis: SCDs, lovenox. Code Visit OBSV E&M: [id number] Initial observation care L3
--- NOTE | 2018-07-20 22:09 | ED.VISSUMM ---
- ER Visit Summary Date of Service: 07/20/18 Chief Complaint: Laceration History of Present Illness: The patient is a 68 M who presents with a laceration to his left wrist. This happened just prior to arrival. He cut his wrist on some metal ellie. He is unsure of his tetanus status. Denies any other associated symptoms. He does take aspirin and Plavix. Physical Examination: Afebrile and vital signs are unremarkable. Alert and oriented. No acute distress. Heart regular. Lungs clear. Patient has a 5 cm laceration to his left dorsal wrist. No deep structures are involved. He is neurovascular intact distally. Good strength and range of motion. Test Results: X-rays were negative. Emergency Department Course and Treatment: Tetanus updated. Patient received a dose of [place]. Wound was irrigated and closed with 7 vertical mattress sutures. Patient tolerated this well. While awaiting x-ray, the patient had a brief period of decreased level of consciousness. He was only responding to loud voice. He was mumbling. He had no other complaints or neurologic symptoms. No aphasia. Otherwise stroke exam was unremarkable. Patient says that he has occasional episodes of decreased level of consciousness. He has also been evaluated many times for syncope. He is currently denying any chest pain or any other associated symptoms. He said he is compliant with his BiPAP. His records show that he has a history of seizures, but he denies this. He is not on seizure medications. He said he is compliant with his other medications. I added on EKG, labs, chest x-ray, CT brain. Work-up was unremarkable. Patient remained alert but did mumble when he spoke. No new or different symptoms. Given his history of diabetes, hypertension, hyperlipidemia, coronary disease, stroke, and obstructive sleep apnea, I did contact the hospitalist to observe him. Treatment Plan: As above Disposition: Admit to PCU for observation Impression: 1. Left wrist laceration 5 cm 2. Encephalopathy This note was generated with [employer] dictation software. It may contain incorrect words, spelling, and punctuation that were not noted in review of the chart prior to signing ED Disposition - Plan for ED Patient: [facility]: [facility] [Primary Care Provider] -
[2018-07-20 22:10] VITALS: BP 124/72; PULSE 60; RESP 11; O2SAT 98
--- NOTE | 2018-07-20 22:13 | ED.DCSUM_ITS ---
- ER Visit Summary Date of Service: 07/20/18 Chief Complaint: Laceration History of Present Illness: The patient is a 68 M who presents with a laceration to his left wrist. This happened just prior to arrival. He cut his wrist on some metal ellie. He is unsure of his tetanus status. Denies any other a ssociated symptoms. He does take aspirin and Plavix. Physical Examination: Afebrile and vital signs are unremarkable. Alert and oriented. No acute distress. Heart regular. Lungs clear. Patient has a 5 cm laceration to his left dorsal wrist. No deep structures are involved. He is neurovascular intact distally. Good strength and range of motion. Test Results: X-rays were negative. Emergency Department Course and Treatment: Tetanus updated. Patient received a dose of [employer]. Wound was irrigated and closed with 7 vertical mattress sutures. Patient tolerated this well. While awaiting x-ray, the patient had a brief period of decreased level of consciousness. He was only responding to loud voice. He was mumbling. He had no other complaints or neurologic symptoms. No aphasia. Otherwise stroke exam was unremarkable. Patient says that he has occasional episodes of decreased level of consciousness. He has also been evaluated many times for syncope. He is currently denying any chest pain or any other associated symptoms. He said he is compliant with his BiPAP. His records show that he has a history of seizures, but he denies this. He is not on seizure medications. He said he is compliant with his other medications. I added on EKG, labs, chest x-ray, CT brain. Work-up was unremarkable. Patient remained alert but did mumble when he spoke. No new or different symptoms. Given his history of diabetes, hypertension, hyperlipidemia, coronary disease, stroke, and obstructive sleep apnea, I did contact the hospitalist to observe him. Treatment Plan: As above Disposition: Admit to PCU for observation Impression: 1. Left wrist laceration 5 cm 2. Encephalopathy This note was generated with [employer] dictation software. It may contain incorrect words, spelling, and punctuation that were not noted in review of the chart prior to signing ED Disposition - Plan for ED Patient: [facility]errals: [facility] [Primary Care Provider] -
--- NOTE | 2018-07-20 22:35 | EKG12_ITS ---
Test Reason : ADM EKG Blood Pressure : / mmHG Vent. Rate : 060 BPM Atrial Rate : 059 BPM P-R Int : 272 ms QRS Dur : 122 ms QT Int : 506 ms P-R-T Axes : 000 -27 092 degrees QTc Int : 506 ms Atrial-paced rhythm with prolonged AV conduction Non-specific intra-ventricular conduction delay Nonspecific ST and T wave abnormality Abnormal ECG When compared with ECG of 12-JUL-2018 09:01, No significant change was found Confirmed by PADILLA GUALLPA, CALI ([id number]), supervising editor news reel MODESTA FISHMAN ([id number]) on 07/23/2018 8:16:13 AM Referred By: Lamar Brown Confirmed By:CALI CAUSEY MD
[2018-07-20 22:44] VITALS: BP 129/71; PULSE 60; RESP 18; TEMP 36.6; O2SAT 96; BMI 36.6
[2018-07-20 22:48] VITALS: BMI 36.6
[2018-07-20 22:54] VITALS: PULSE 65
[2018-07-20 23:20] LABS: Bedside Glucose 209 mg/dL (70-110)
[2018-07-20 23:24] LABS: Magnesium 1.6 mg/dL (1.6-2.6)
[2018-07-20] MEDS: Ranolazine 500 MG Tablet 1000 MG PO (23:31)
[2018-07-20] MEDS: Pantoprazole Sodium 40 MG Tablet PO (23:31)
[2018-07-20] MEDS: Tamsulosin HCl 0.4 MG Capsule 0.8 MG PO (23:31)
[2018-07-20] MEDS: 0.9% NaCl Peripheral Flush Adult/Peds IV (23:32)
[2018-07-20] MEDS: Atorvastatin Calcium 80 MG Tablet PO (23:32)
[2018-07-20] MEDS: MELATONIN 3 MG TABLET PO (23:32)
[2018-07-20] MEDS: Morphine 2 MG/ML Syringe IV (23:32)
[2018-07-21] VITALS (19 sets, daily range): BP systolic 108–137; BP diastolic 52–81; PULSE 60–79; RESP 12–19; TEMP 36.3–36.9; O2SAT 94–98
--- NOTE | 2018-07-21 03:35 | EKG12_ITS ---
Test Reason : CHEST PAIN Blood Pressure : / mmHG Vent. Rate : 061 BPM Atrial Rate : 208 BPM P-R Int : 270 ms QRS Dur : 120 ms QT Int : 516 ms P-R-T Axes : 060 -23 091 degrees QTc Int : 519 ms Atrial-paced rhythm with prolonged AV conduction Possible Inferior infarct , age undetermined Abnormal ECG When compared with ECG of 20-JUL-2018 22:52, MANUAL COMPARISON REQUIRED, DATA IS UNCONFIRMED Confirmed by PADILLA GUALLPA, CALI ([id number]), desk editor MODESTA FISHMAN ([id number]) on 07/23/2018 8:14:23 AM Referred By: Lamar Brown Confirmed By:CALI CAUSEY MD
[2018-07-21] MEDS: Morphine 2 MG/ML Syringe IV ×2 (03:39→19:35)
[2018-07-21] MEDS: 0.9% NaCl Peripheral Flush Adult/Peds IV ×2 (03:40→19:35)
[2018-07-21 06:17] LABS: Hemoglobin 10.1 g/dl (13.0-16.5); Mean Corp Hgb Conc 32.6 g/gl (32-36); Mean Corpuscular Hgb 32.8 pg (27.0-32.0); Mean Corpuscular Volume 100.6 fL (80-94); Mean Platelet Vol. 10.4 fl (6.2-12.0); Platelet Count 121 K/mm3 (150-450); RBC Distribution Width CV 14.6 % (11.6-14.6); Red Blood Count 3.08 M/mm3 (4.6-6.2); White Blood Count 4.6 K/mm3 (4.4-11.0)
[2018-07-21 06:18] LABS: Scan Indicated on CBC? Y/N NO
[2018-07-21 06:42] LABS: AST(SGOT) 15 U/L (15-37); Alanine Aminotransfer ALT/SGPT 26 U/L (16-61); Albumin, Serum 2.9 g/dL (3.2-5.0); Alkaline Phosphatase 79 U/L (45-117); Anion Gap 7 (5-15); BUN 24 mg/dL (7-18); BUN/Creat Ratio 25.4 RATIO (10-20); Calcium,Total 7.4 mg/dL (8.5-10.1); Chloride 105 mmol/L (98-107); Cholesterol 80 mg/dL (200); Creatinine, Serum 0.94 mg/dL (0.70-1.30); EST Glomerular Filtration Rate 84 mL/min (>60); Est Glom Filt Rate - Afr Amer 102 mL/min (>60); Estimated Creatinine Clearance 77.66 ml/min; Glucose 208 mg/dL (74-106); High Density Lipoprotein 34 mg/dL; Protein, Total 5.9 g/dL (6.4-8.2); Sodium Level 143 mmol/L (136-145); Triglycerides 119 mg/dL; Very Low Density Lipoprotein 24 mg/dL (5-40)
[2018-07-21 06:45] LABS: Bedside Glucose 192 mg/dL (70-110)
[2018-07-21 08:00] LABS: Erythrocyte Sedimentation Rate 5 mm/hr (0-20)
[2018-07-21 08:41] LABS: CRP 3.33 mg/L (0.0-3.0)
--- NOTE | 2018-07-21 09:54 | CON.PCM_ITS ---
Problem List (1) Chest pain Status: Acute Qualifiers: Chest pain type: unspecified Qualified Code(s): R07.9 - Chest pain, unspecified (2) Chest wall contusion Status: Acute (3) Hyperlipidemia Status: Chronic Qualifiers: Hyperlipidemia type: unspecified Qualified Code(s): E78.5 - Hyperlipidemia, unspecified (4) Hypertension Status: Chronic Qualifiers: Hypertension type: essential hypertension Qualified Code(s): I10 - Essential (primary) hypertension (5) DM type 2 (diabetes mellitus, type 2) Status: Chronic Qualifiers: Diabetes mellitus senior care insulin use: with moth exterminator use Diabetes mellitus complication status: with unspecified complications Qualified Code(s): E11.8 - Type 2 diabetes mellitus with unspecified complications; Z79.4 - manager terminal (current) use of insulin (6) S/P CABG (coronary artery bypass graft) Status: Chronic (7) S/P PTCA (percutaneous transluminal coronary angioplasty) Status: Chronic Reason for Consult Date of Consultation: 07/21/18 Reason for Consultation: Atypical chest pain, coronary artery disease status post bypass surgery, hypertension, hypercholesterolemia, possible seizure history, History of Present Illness: The patient is a 68 year old M, patient of Dr. Aponte's, with a history of hypertension, hypercholesterolemia, history of CVA with chronic a aphasia and le ft-sided hemiparesis, coronary artery disease status post bypass surgery in the past, most recent catheterization with Dr. Aponte on 02/24/2017 demonstrated an occluded right coronary artery, subtotal left circumflex stent, nonobstructive disease of his ramus and LAD, widely patent saphenous vein graft to diagonal #1, widely patent saphenous vein graft to OM #2, and widely patent saphenous vein g raft to the RCA. Previously his MASON to the LAD had been found to be atretic and was not imaged on that visit. His EF at that time was 55%. Patient has visited the ER most recently in June 2018 with a chief complaint of atypical chest pain. He underwent a non-walking pharmacologic nuclear stress test on 06/21/2018 which was negative for inducible ischemia. Previous to that on 12/15/2017 he underwent a stress echocardiogram which was negative for inducible ischemia but had a poor workload. The history is somewhat difficult to ascertain as the patient is on BiPAP, and has difficulty with speech. There are no other family members available. Apparently, yesterday the patient fell and lacerated his left hand, and was somewhat confused and brought to the emergency room for evaluation. There his left hand was sutured, and a CT scan of his head was performed which was unremarkable. Patient supposedly has a history of seizures although he is on no antiseizure medication at this time. Patient does answer questions with yes or no answers, and points to his left side of his chest indicated he has had pain there for some days. He has no overt reproducible chest pain by my physical examination, and his cardiac exam is unremarkable. His troponins have been negative x3. In addition he has a history of a pacemaker and his EKG showed paced rhythm with normal intrinsic ventricular response, possible old inferior/posterior wall myocardial infarction, no acute changes. Apparently the patient's pains have been treated with narcotic medications and apparently he is somewhat sensitive to this per his on his previous visit in June 2018. Early he is in no acute distress. [] Past Medical History Allergies/Adverse Reactions: Allergies ezetimibe Allergy (Verified 07/20/18 17:53) Unknown Fish Containing Products Allergy (Verified 07/20/18 17:53) Unknown glyburide Allergy (Verified 07/20/18 17:53) Unknown lisinopril Allergy (Verified 07/20/18 17:53) Unknown metformin Allergy (Verified 07/20/18 17:53) Nausea metoprolol Allergy (Verified 07/20/18 17:53) Unknown simvastatin Allergy (Verified 07/20/18 17:53) Unknown Home Medications: Ambulatory Orders Medication Instructions Recorded Aspirin E.C. [Ecotrin] 81 mg PO DAILY@0800 06/11/18 Atenolol [Tenormin] 100 mg PO DAILY 06/11/18 Atorvastatin Calcium [Lipitor] 80 mg PO QHS 06/11/18 Cholecalciferol (VIT D3) [Vitamin 3 tab PO DAILY 06/11/18 D3] Clopidogrel Bisulfate [Clopidogrel] 75 mg PO DAILY 06/11/18 Dextrose [Glucose] 4 tab PO PRN PRN 06/11/18 Escitalopram Oxalate [Lexapro] 10 mg PO DAILY 06/11/18 Finasteride [Proscar] 5 mg PO DAILY 06/11/18 Furosemide [Lasix] 20 mg PO DAILY 06/11/18 Insulin Regular, Human [Humulin R 120 unit SQ LUNCH 06/11/18 U-500 Kwikpen] Insulin Regular, Human [Humulin R 140 unit SQ DINNER 06/11/18 U-500 Kwikpen] Insulin Regular, Human [Humulin R 175 unit SQ BREAKFAST 06/11/18 U-500 Kwikpen] Ketoconazole 1 applicatio TP DAILY 06/11/18 Multivitamins,Ther W-Minerals 1 tablet PO DAILY 06/11/18 [Multivitamin With Minerals] Pantoprazole Sodium 40 mg PO BID 06/11/18 Ranolazine [Ranexa] 1,000 mg PO BID 06/11/18 Tamsulosin HCl [Flomax] 0.8 mg PO QHS 06/11/18 Norvasc 5 mg PO DAILY 06/20/18 Acetaminophen [Tylenol Tablet] 650 mg PO Q6H PRN PRN tablet 06/21/18 Levetiracetam [Keppra] 500 mg PO BID 07/20/18 Past Medical History (Chronic Problems): Chronic Problems Left-sided weakness (Chronic) Hyperlipidemia (Chronic) Hypertension (Chronic) Obesity (Chronic) Pacemaker (Chronic) 2001 Chronic respiratory failure (Chronic) baseline 3L continuously CAD (coronary artery disease) (Chronic) Cardiac catheterization 02/24/2017?normal LV size should not, EF 55%, [place] multivessel CAD, patent SVG to diagonal 1, OM 2, and RCA, MASON to LAD previously reported as atretic/nonfunctional (not reevaluated at that time), advised medical therapy DM type 2 (diabetes mellitus, type 2) (Chronic) Obstructive sleep apnea (Chronic) Seizure (Chronic) Aphasia (Chronic) S/P CABG (coronary artery bypass graft) (Chronic) S/P PTCA (percutaneous transluminal coronary angioplasty) (Chronic) CVA (cerebral vascular accident) (Chronic) Residual left-sided weakness Surgical History: angioplasty, coronary bypass surgery, pacemaker implantation, - - cabg,cholecystectemy, hernia, left knee, 4 stents Psychiatric History: Depression - *Family History Maternal History Items: Heart Disease Paternal History Items: - - Patient does not know his paternal family history. Lives: Spouse/ Significant Other Smoking Status: Former smoker Tobacco Use: Non-smoker Alcohol: None Drugs: None Review of Systems - Review of Systems General: Denies: Fever, Night Sweats, Fatigue Cardiovascular: Reports: Chest Discomfort, Chest Discomfort at Rest. Denies: Shortness of Breath, Orthopnea, PND, Peripheral Edema, Palpitations, Lightheadedness, Dizziness, Near Syncope, Syncope Respiratory: Denies: Cough, Sputum Production, Hemoptysis Gastrointestinal: Denies: Hematemesis, Hematochezia, Melena Genitourinary: Denies: Dysuria, Hematuria Skin: Denies: Rash Subjectve: Patient on BiPAP, no acute distress. Objective: Vital Signs Temp Pulse Resp BP Pulse Ox 97.3 F L 75 15 108/52 L 97 07/21/18 03:30 07/21/18 05:10 07/21/18 05:10 07/21/18 03:30 07/21/18 05:10 Oxygen Flow Rate (L/min) 3 Oxygen Delivery Method Nasal Cannula Weight: 255 lb 15.307 oz Body Mass Index (BMI) 36.6 Finger Stick Blood Glucose 81 Intake and Output for Last 24 Hours 07/19/18 07/20/18 07/21/18 23:59 23:59 23:59 Intake Total 240 / 240 Output Total 125 / 125 Balance 240 / 240 -125 / -125 General: Awake, Alert, Oriented x 3 HEENT: PERRL, EOMI, Sclera Non Icteric Neck: Supple, Good ROM, No Lymph Node Enlargement Lungs: Clear to auscultation Cardiovascular: Regular Rhythm, Premature Ectopic Beats, Normal S1, Normal S2, No Murmurs, No Rubs, No Gallops Vascular: No Carotid Bruits, Normal Femoral Pulses, Normal Radial Pulses, Normal Dorsalis Pedal Pulse, Normal Posterior Tibial Pulses Abdomen: Bowel Sounds Present, Soft, Non Tender, No HSM, No Organomegaly Extremities: No Cyanosis, No Clubbing, No edema Neurological: No Focal Motor or Sensory Deficit 07/20/18 17:55: WBC 5.1, RBC 3.66 L, Hgb 12.0 L, Hct 36.2 L, MCV 98.9 H, MCH 32.8 H, MCHC 33.1, RDW 14.6, RDW Differential 50.8 H, Plt Count 156, MPV 10.3, Immature Gran % (Auto) 0.400, Neut % (Auto) 69.1, Lymph % (Auto) 22.0, [place] % (Auto) 6.9, Eos % (Auto) 1.4, Baso % (Auto) 0.2, Absolute Neuts (auto) 3.5, T otal Counted Not Reportable 07/20/18 17:55: Sodium 140, Potassium 3.9, Chloride 103, Carbon Dioxide 28.0, Anion Gap 9, BUN 20 H, Creatinine 1.19, Est GFR (MDRD) Af Amer 78, Est GFR (MDRD) Non-Af 65, BUN/Creatinine Ratio 16.8, Glucose 234 H, Calcium 8.0 L, Troponin I < 0.015 07/20/18 23:00: Magnesium 1.6 07/20/18 23:00: Troponin I < 0.015 07/21/18 01:10: Troponin I < 0.015 07/21/18 05:40: WBC 4.6, RBC 3.08 L, Hgb 10.1 L, Hct 31.0 L, MCV 100.6 H, MCH 32.8 H, MCHC 32.6, RDW 14.6, RDW Differential 52.0 H, Plt Count 121 L, MPV 10.4 07/21/18 05:40: Sodium 143, Potassium 4.0, Chloride 105, Carbon Dioxide 31.0, Anion Gap 7, BUN 24 H, Creatinine 0.94, Est GFR (MDRD) Af Amer 102, Est GFR (MDRD) Non-Af 84, BUN/Creatinine Ratio 25.4 H, Glucose 208 H, Calcium 7.4 L, Total Bilirubin 0.60, Triglycerides 119, Cholesterol 80, LDL Cholesterol 22, VLDL Cholesterol 24, HDL Cholesterol 34 L Rhythm: EKG: ECHO: Stress Test: Cardiac Cath: PCI: CT Surgery: Holter monitor: EPS: PPM: CXR: Chest CT Scan: Assessment/Plan 1. Chest pain: The patient's chest pain is somewhat atypical, and does not appear to be exertional in nature, although the patient does not ambulate very well as a result of his previous CVA. He has had an extensive cardiac work-up done in the last 12 months including multiple admissions, stress test, and catheterization which took place on 02/24/2017. His most recent non-walking nuclear stress test in June 2018 was negative for inducible ischemia. Would not recommend repeat stress testing at this time nor would I recommend repeat catheterization at this time. Would recommend switching his Toprol to 50 mg twice daily to better stretch out his coverage during the day given his history of falls which may be hypertensive induced. Patient does have a pacemaker for back-up, and we will recommend interrogating this to determine if he has any arrhythmias that may have contributed to his symptoms. His EF is normal. In addition I would recommend checking orthostatic blood pressures to determine if he has a hypotensive source of his falls. Would recommend a rib series chest x-ray to determine if he has any undocumented fractures. 2. Hyperlipidemia: His LDL and HDL cholesterol are at goal. No changes needed at this time. 3. Thank you very much for the opportunity to participate in the cardiac care of your patient. Consultation time took place between 830 and 9 AM. Code Visit Inpatient E&M: 82393 Init Hosp L2
--- NOTE | 2018-07-21 10:46 | PCM.PN.HOSP ---
Patient Problems: Active and Suspected Problems Chest pain (Acute) Subjective: Patient seen and examined. He was admitted with a complaint of chest pain. He also sustained a fall and lacerated his hand. He has been managed for chest pain to rule out ACS. Of note, patient has had numerous admissions for similar chest pain. He was seen in June 2018 with complaint of atypical chest pain and a pharmacological nuclear stress test on was negative for inducible ischemia. He also had a stress echocardiogram in November 2017 which was negative for inducible ischemia but had a poor workload. He had a cardiac cath on 02/24/2017 which demonstrated an occluded right coronary artery with a subtotal left circumflex stent and nonobstructive disease of his ramus and LAD. His venous grafts were widely patent. Cardiology is currently on board. Patient seen and examined. He had BiPAP mask on. He did seem a bit confused and was not very communicative. He however managed to shake his head in response to questions about chest pain, shortness of breath or palpitations, abdominal pain, diarrhea or vomiting. Review of systems otherwise negative. Labs and vitals reviewed. Medication reviewed on consult. Vitals/I&O's: Vital Signs Temp Pulse Resp BP Pulse Ox 97.3 F L 60 14 108/52 L 96 07/21/18 03:30 07/21/18 07:48 07/21/18 07:22 07/21/18 03:30 07/21/18 07:22 Oxygen Flow Rate (L/min) 3 Oxygen Delivery Method Nasal Cannula Weight: 255 lb 15.307 oz Body Mass Index (BMI) 36.6 Finger Stick Blood Glucose 81 Intake and Output for Last 24 Hours 07/19/18 07/20/18 07/21/18 23:59 23:59 23:59 Intake Total 240 / 240 Output Total 125 / 125 Balance 240 / 240 -125 / -125 General: Alert, Cooperative, Confused, Lethargic HEENT: Atraumatic, PERRLA, EOMI, Normocephalic Oral: Dry Mucosa Neck: Supple, No JVD, Negative Carotid Bruits Lungs: Clear to auscultation, Normal air movement, No rhonchi, No wheeze, No rales, - - BIPAP mask on Cardiovascular: Regular rate, Regular Rhythm, Normal S1, Normal S2, No murmurs Abdomen: Bowel Sounds Present, Soft, Non Tender, Non-Distended, No Hepato-splenomegaly Extremities: No clubbing, No cyanosis, No edema, Capillary Refill Less than 3 Seconds Skin: No rashes, No breakdown Musculoskeletal: No Tenderness to Palpation of Joints or Extremities Lymphatic: No Cervical, Supraclavicular, or Inguinal Adenopathy Neurological: Cranial nerves II-XII grossly intact, Neuro grossly intact, Motor Exam 5/5 strength throughout Psych/Mental Status: Flat Affect Laboratory Results 07/20/18 17:55: WBC 5.1, RBC 3.66 L, Hgb 12.0 L, Hct 36.2 L, MCV 98.9 H, MCH 32.8 H, MCHC 33.1, RDW 14.6, RDW Differential 50.8 H, Plt Count 156, MPV 10.3, Immature Gran % (Auto) 0.400, Neut % (Auto) 69.1, Lymph % (Auto) 22.0, [place] % (Auto) 6.9, Eos % (Auto) 1.4, Baso % (Auto) 0.2, Absolute Neuts (auto) 3.5, Absolute Lymphs (auto) 1.12, Total Counted Not Reportable 07/20/18 17:55: Sodium 140, Potassium 3.9, Chloride 103, Carbon Dioxide 28.0, Anion Gap 9, BUN 20 H, Creatinine 1.19, Estim Creat Clear Calc 61.34, Est GFR (MDRD) Af Amer 78, Est GFR (MDRD) Non-Af 65, BUN/Creatinine Ratio 16.8, Glucose 234 H, Calcium 8.0 L, Troponin I < 0.015 07/20/18 23:00: Magnesium 1.6 07/20/18 23:00: Troponin I < 0.015 07/20/18 23:03: POC Glucose 209 H 07/21/18 01:10: Troponin I < 0.015 07/21/18 05:40: WBC 4.6, RBC 3.08 L, Hgb 10.1 L, Hct 31.0 L, MCV 100.6 H, MCH 32.8 H, MCHC 32.6, RDW 14.6, RDW Differential 52.0 H, Plt Count 121 L, MPV 10.4 07/21/18 05:40: Sodium 143, Potassium 4.0, Chloride 105, Carbon Dioxide 31.0, Anion Gap 7, BUN 24 H, Creatinine 0.94, Estim Creat Clear Calc 77.66, Est GFR (MDRD) Af Amer 102, Est GFR (MDRD) Non-Af 84, BUN/Creatinine Ratio 25.4 H, Glucose 208 H, Calcium 7.4 L, Total Bilirubin 0.60, AST 15, ALT 26, Alkaline Phosphatase 79, Total Protein 5.9 L, Albumin 2.9 L, Globulin 3.0, Albumin/Globulin Ratio 1.0, Triglycerides 119, Cholesterol 80, LDL Cholesterol 22, VLDL Cholesterol 24, HDL Cholesterol 34 L 07/21/18 05:40: ESR 5 07/21/18 05:40: C-React Prot Ext Range 3.33 H 07/21/18 06:38: POC Glucose 192 H Diagnostic Data Wrist X-Ray 07/20/18 18:20 IMPRESSION: Normal x-ray examination of the wrist. Electronically Signed: Ever Raines DO at 18:45 EDT Tel [phone], Service support , Brain CT 07/20/18 18:56 IMPRESSION: Mild age-related changes of the brain. Electronically Signed: Ever Raines DO at 20:13 EDT Tel [phone], Service support , Chest X-Ray 07/20/18 19:15 IMPRESSION: Stable cardiomegaly. Electronically Signed: Ever Raines DO at 20:08 EDT Tel [phone], Service support , Current Medications Acetaminophen (Tylenol) 650 mg PO Q6H PRN PRN PRN Reason: Non-cardiac pain (mod-severe) Hydrocodone Bitart/Acetaminophen (Leonard 5mg-325mg) 1 - 2 tablet PO Q6H PRN PRN PRN Reason: MOD-SEVERE PAIN (4-10/10) Al Hydroxide/Mg Hydroxide (Mylanta Ii) 15 - 30 ml PO Q4H PRN PRN PRN Reason: INDIGESTION Albuterol Sulfate (Ventolin Aerosols) 2.5 mg INHALATION Q2H PRN PRN PRN Reason: dyspnea, wheezing Amlodipine Besylate (Norvasc) 5 mg PO DAILY [facility] Aspirin (Ecotrin) 81 mg PO DAILY@0800 [facility] Atenolol (Tenormin (Beta Sophy)) 50 mg PO BID [facility] Atorvastatin Calcium (Lipitor) 80 mg PO QHS [facility] Last Admin: 07/20/18 23:32 Dose: 80 mg Cholecalciferol (Vitamin D) 3,000 unit PO DAILY [facility] Clopidogrel Bisulfate (Plavix) 75 mg PO DAILY [facility] Dextrose (D50w Syringe) 0 gm IV X1 PRN; Protocol PRN Reason: Hypoglycemia Enoxaparin Sodium (Lovenox) 40 mg SC DAILY@1000 [facility] Escitalopram Oxalate (Lexapro) 10 mg PO DAILY [facility] Finasteride (Proscar) 5 mg PO DAILY [facility] Furosemide (Lasix) 20 mg PO DAILY [facility] Glucagon () 1 mg IM .X1 PRN PRN Reason: Hypoglycemia Hydralazine HCl (Apresoline Iv) 10 mg IV Q4H PRN PRN PRN Reason: SBP > 160 Insulin Human Lispro (Humalog Kwikpen (Bkc)) [facility]Q [facility]; Protocol Insulin Human Regular (Humulin R U-500 (Bkc)) 175 units SC BREAKFAST [facility] Insulin Human Regular (Humulin R U-500 (Bkc)) 140 units SC DINNER [facility] Insulin Human Regular (Humulin R U-500 (Bkc)) 120 units SC LUNCH [facility] Melatonin (Melatonin) 3 mg PO QHS PRN PRN PRN Reason: INSOMNIA Last Admin: 07/20/18 23:32 Dose: 3 mg Morphine Sulfate () 1 - 2 mg IV Q4H PRN PRN PRN Reason: PAIN Last Admin: 07/21/18 03:39 Dose: 2 mg Multivitamins/Minerals (Multivitamin With Minerals) [facility] tablet [facility] Nitroglycerin (Nitrostat) 0.4 mg SUBLINGUAL Q5M PRN PRN Reason: CARDIAC/CHEST PAIN Nutritional Formula (Lactose Free) (Glucerna Shake) 120 ml PO TIDCM [facility] Last Admin: 07/21/18 07:45 Dose: Not Given Ondansetron HCl (Zofran) 4 mg IV Q8H PRN PRN PRN Reason: NAUSEA/VOMITING Pantoprazole Sodium (Protonix) 40 mg PO BID [facility] Last Admin: 07/20/18 23:31 Dose: 40 mg Ranolazine (Ranexa) 1,000 mg PO BID [facility] Last Admin: 07/20/18 23:31 Dose: 1,000 mg Sodium Chloride () 5 - 15 ml IV UD PRN PRN Reason: SALINE FLUSH Last Admin: 07/21/18 03:40 Dose: 10 ml Tamsulosin HCl (Flomax) 0.8 mg PO QHS [facility] Last Admin: 07/20/18 23:31 Dose: 0.8 mg Medical Necessity - Tobacco Use Smoking Status: Former smoker Tobacco Use: Non-smoker Assessment/Plan All Active Problems Chest pain (Acute) Abnormal EKG (Acute) Chest wall contusion (Acute) Atypical chest pain (Acute) 1. Atypical chest pain patient has had a negative stress test in 07/04; he had a cardiac cath in February 2017, which showed patent grafts and EF of 55%. troponins x 3 were negative. EKG showed no acute ST changes on aspirin, SL nitroglycerin and statin. cardiology on board; advocate conservative management now due to recent tests being negative 2. CAD s/p CABG: on asprin, plavix, statin and atenolol. also on ranexa 3. Hypertension: on amlodipine, atenolol and lasix. On iV hydralazine prn 4. Hyperlipidemia: on statin 5. History of CVA: stable. On aspirin, plavix, statin 6. Type 2 diabetes mellitus: Check states nightly. Insulin sliding scale. On Lantus 175 units daily at breakfast and 140 units at dinner. 7. Morbid obesity: nutrition consulted 8. Anxiety depression: On Lexapro 9. EKATERINA: On BiPAP nightly. 10. BPH: On Flomax and Proscar 11. GERD: On PPI 12.?history of seizure disorder: on Keppra DVT prophylaxis: lovenox Code Visit OBSV E&M: 58441 Subsequent observation care L3
--- NOTE | 2018-07-21 10:50 | PN_ITS ---
Patient Problems: Active and Suspected Problems Chest pain (Acute) Subjective: Patient seen and examined. He was admitted with a complaint of chest pain. He also sustained a fall and lacerated his hand. He has been managed for chest pain to rule out ACS. Of note, patient has had numerous admissions for similar chest pain. He was seen in June 2018 with complaint of atypical chest pain and a pharmacological nuclear stress test on was negative for inducible ischemia. He also had a stress echocardiogram in November 2017 which was negative for inducible ischemia but had a poor workload. He had a cardiac cath on 02/24/2017 which demonstrated an occluded right coronary artery with a subtotal left circumflex stent and nonobstructive disease of his ramus and LAD. His venous grafts were widely patent. Cardiology is currently on board. Patient seen and examined. He had BiPAP mask on. He did seem a bit confused and was not very communicative. He however managed to shake his head in response to questions about chest pain, shortness of breath or palpitations, abdominal pain, diarrhea or vomiting. Review of systems otherwise negative. Labs and vitals reviewed. Medication reviewed on consult. Vitals/I&O's: Vital Signs Temp Pulse Resp BP Pulse Ox 97.3 F L 60 14 108/52 L 96 07/21/18 03:30 07/21/18 07:48 07/21/18 07:22 07/21/18 03:30 07/21/18 07:22 Oxygen Flow Rate (L/min) 3 Oxygen Delivery Method Nasal Cannula Weight: 255 lb 15.307 oz Body Mass Index (BMI) 36.6 Finger Stick Blood Glucose 81 Intake and Output for Last 24 Hours 07/19/18 07/20/18 07/21/18 23:59 23:59 23:59 Intake Total 240 / 240 Output Total 125 / 125 Balance 240 / 240 -125 / -125 General: Alert, Cooperative, Confused, Lethargic HEENT: Atraumatic, PERRLA, EOMI, Normocephalic Oral: Dry Mucosa Neck: Supple, No JVD, Negative Carotid Bruits Lungs: Clear to auscultation, Normal air movement, No rhonchi, No wheeze, No rales, - - BIPAP mask on Cardiovascular: Regular rate, Regular Rhythm, Normal S1, Normal S2, No murmurs Abdomen: Bowel Sounds Present, Soft, Non Tender, Non-Distended, No Hepato- splenomegaly Extremities: No clubbing, No cyanosis, No edema, Capillary Refill Less than 3 Seconds Skin: No rashes, No breakdown Musculoskeletal: No Tenderness to Palpation of Joints or Extremities Lymphatic: No Cervical, Supraclavicular, or Inguinal Adenopathy Neurological: Cranial nerves II-XII grossly intact, Neuro grossly intact, Motor Exam 5/5 strength throughout Psych/Mental Status: Flat Affect Laboratory Results 07/20/18 17:55: WBC 5.1, RBC 3.66 L, Hgb 12.0 L, Hct 36.2 L, MCV 98.9 H, MCH 32.8 H, MCHC 33.1, RDW 14.6, RDW Differential 50.8 H, Plt Count 156, MPV 10.3, Immature Gran % (Auto) 0.400, Neut % (Auto) 69.1, Lymph % (Auto) 22.0, Colbert % (Auto) 6.9, Eos % (Auto) 1.4, Baso % (Auto) 0.2, Absolute Neuts (auto) 3.5, Absolute Lymphs (auto) 1.12, Total Counted Not Reportable 07/20/18 17:55: Sodium 140, Potassium 3.9, Chloride 103, Carbon Dioxide 28.0, Anion Gap 9, BUN 20 H, Creatinine 1.19, Estim Creat Clear Calc 61.34, Est GFR (MDRD) Af Amer 78, Est GFR (MDRD) Non-Af 65, BUN/Creatinine Ratio 16.8, Glucose 234 H, Calcium 8.0 L, Troponin I < 0.015 07/20/18 23:00: Magnesium 1.6 07/20/18 23:00: Troponin I < 0.015 07/20/18 23:03: POC Glucose 209 H 07/21/18 01:10: Troponin I < 0.015 07/21/18 05:40: WBC 4.6, RBC 3.08 L, Hgb 10.1 L, Hct 31.0 L, MCV 100.6 H, MCH 32.8 H, MCHC 32.6, RDW 14.6, RDW Differential 52.0 H, Plt Count 121 L, MPV 10.4 07/21/18 05:40: Sodium 143, Potassium 4.0, Chloride 105, Carbon Dioxide 31.0, Anion Gap 7, BUN 24 H, Creatinine 0.94, Estim Creat Clear Calc 77.66, Est GFR (MDRD) Af Amer 102, Est GFR (MDRD) Non-Af 84, BUN/Creatinine Ratio 25.4 H, Glucose 208 H, Calcium 7.4 L, Total Bilirubin 0.60, AST 15, ALT 26, Alkaline Phosphatase 79, Total Protein 5.9 L, Albumin 2.9 L, Globulin 3.0, Albumin/Globulin Ratio 1.0, Triglycerides 119, Cholesterol 80, LDL Cholesterol 22, VLDL Cholesterol 24, HDL Cholesterol 34 L 07/21/18 05:40: ESR 5 07/21/18 05:40: C-React Prot Ext Range 3.33 H 07/21/18 06:38: POC Glucose 192 H Diagnostic Data Wrist X-Ray 07/20/18 18:20 IMPRESSION: Normal x-ray examination of the wrist. Electronically Signed: Ever Raines DO at 18:45 EDT Tel [phone], Service support , Brain CT 07/20/18 18:56 IMPRESSION: Mild age-related changes of the brain. Electronically Signed: Ever Raines DO at 20:13 EDT Tel [phone], Service support , Chest X-Ray 07/20/18 19:15 IMPRESSION: Stable cardiomegaly. Electronically Signed: Ever Raines DO at 20:08 EDT Tel [phone], Service support , Current Medications Acetaminophen (Tylenol) 650 mg PO Q6H PRN PRN PRN Reason: Non-cardiac pain (mod-severe) Hydrocodone Bitart/Acetaminophen ([place] 5mg-325mg) 1 - 2 tablet PO Q6H PRN PRN PRN Reason: MOD-SEVERE PAIN (4-10/10) Al Hydroxide/Mg Hydroxide (Mylanta Ii) 15 - 30 ml PO Q4H PRN PRN PRN Reason: INDIGESTION Albuterol Sulfate (Ventolin Aerosols) 2.5 mg INHALATION Q2H PRN PRN PRN Reason: dyspnea, wheezing Amlodipine Besylate (Norvasc) 5 mg PO DAILY COUNTS INCLUDE 234 BEDS AT THE [facility] Aspirin (Ecotrin) 81 mg PO DAILY@0800 COUNTS INCLUDE 234 BEDS AT THE [facility] Atenolol (Tenormin (Beta Sophy)) 50 mg PO BID COUNTS INCLUDE 234 BEDS AT THE [facility] Atorvastatin Calcium (Lipitor) 80 mg PO QHS COUNTS INCLUDE 234 BEDS AT THE [facility] Last Admin: 07/20/18 23:32 Dose: 80 mg Cholecalciferol (Vitamin D) 3,000 unit PO DAILY COUNTS INCLUDE 234 BEDS AT THE [facility] Clopidogrel Bisulfate (Plavix) 75 mg PO DAILY COUNTS INCLUDE 234 BEDS AT THE [facility] Dextrose (D50w Syringe) 0 gm IV X1 PRN; Protocol PRN Reason: Hypoglycemia Enoxaparin Sodium (Lovenox) 40 mg SC DAILY@1000 COUNTS INCLUDE 234 BEDS AT THE [facility] Escitalopram Oxalate (Lexapro) 10 mg PO DAILY COUNTS INCLUDE 234 BEDS AT THE [facility] Finasteride (Proscar) 5 mg PO DAILY COUNTS INCLUDE 234 BEDS AT THE [facility] Furosemide (Lasix) 20 mg PO DAILY COUNTS INCLUDE 234 BEDS AT THE [facility] Glucagon () 1 mg IM .X1 PRN PRN Reason: Hypoglycemia Hydralazine HCl (Apresoline Iv) 10 mg IV Q4H PRN PRN PRN Reason: SBP > 160 Insulin Human Lispro (Humalog Kwikpen (Bkc)) [facility]; Protocol Insulin Human Regular (Humulin R U-500 (Bkc)) 175 units SC BREAKFAST COUNTS INCLUDE 234 BEDS AT THE [facility] Insulin Human Regular (Humulin R U-500 (Bkc)) 140 units SC DINNER COUNTS INCLUDE 234 BEDS AT THE [facility] Insulin Human Regular (Humulin R U-500 (Bkc)) 120 units SC LUNCH COUNTS INCLUDE 234 BEDS AT THE [facility] Melatonin (Melatonin) 3 mg PO QHS PRN PRN PRN Reason: INSOMNIA Last Admin: 07/20/18 23:32 Dose: 3 mg Morphine Sulfate () 1 - 2 mg IV Q4H PRN PRN PRN Reason: PAIN Last Admin: 07/21/18 03:39 Dose: 2 mg Multivitamins/Minerals (Multivitamin With Minerals) [facility] Nitroglycerin (Nitrostat) 0.4 mg SUBLINGUAL Q5M PRN PRN Reason: CARDIAC/CHEST PAIN Nutritional Formula (Lactose Free) (Glucerna Shake) 120 ml PO TIDCM COUNTS INCLUDE 234 BEDS AT THE [facility] Last Admin: 07/21/18 07:45 Dose: Not Given Ondansetron HCl (Zofran) 4 mg IV Q8H PRN PRN PRN Reason: NAUSEA/VOMITING Pantoprazole Sodium (Protonix) 40 mg PO BID COUNTS INCLUDE 234 BEDS AT THE [facility] Last Admin: 07/20/18 23:31 Dose: 40 mg Ranolazine (Ranexa) 1,000 mg PO BID COUNTS INCLUDE 234 BEDS AT THE [facility] Last Admin: 07/20/18 23:31 Dose: 1,000 mg Sodium Chloride () 5 - 15 ml IV UD PRN PRN Reason: SALINE FLUSH Last Admin: 07/21/18 03:40 Dose: 10 ml Tamsulosin HCl (Flomax) 0.8 mg PO QHS COUNTS INCLUDE 234 BEDS AT THE [facility] Last Admin: 07/20/18 23:31 Dose: 0.8 mg Medical Necessity - Tobacco Use Smoking Status: Former smoker Tobacco Use: Non-smoker Assessment/Plan All Active Problems Chest pain (Acute) Abnormal EKG (Acute) Chest wall contusion (Acute) Atypical chest pain (Acute) 1. Atypical chest pain * patient has had a negative stress test in 07/04; he had a cardiac cath in February 2017, which showed patent grafts and EF of 55%. * troponins x 3 were negative. EKG showed no acute ST changes * on aspirin, SL nitroglycerin and statin. * cardiology on board; advocate conservative management now due to recent tests being negative * 2. CAD s/p CABG: on asprin, plavix, statin and atenolol. also on ranexa 3. Hypertension: on amlodipine, atenolol and lasix. On iV hydralazine prn 4. Hyperlipidemia: on statin 5. History of CVA: stable. On aspirin, plavix, statin 6. Type 2 diabetes mellitus: Check states nightly. Insulin sliding scale. On Lantus 175 units daily at breakfast and 140 units at dinner. 7. Morbid obesity: nutrition consulted 8. Anxiety depression: On Lexapro 9. EKATERINA: On BiPAP nightly. 10. BPH: On Flomax and Proscar 11. GERD: On PPI 12.?history of seizure disorder: on Keppra DVT prophylaxis: lovenox Code Visit OBSV E&M: 52585 Subsequent observation care L3
--- NOTE | 2018-07-21 11:34 | CASEMGMT ---
SW notified patient's last admission (June 2018) that [facility] does not have copies of patient's Healthcare POA or Healthcare LW. Hoda MURRAY MSW
[2018-07-21] MEDS: Aspirin E.C. 81 MG Tablet PO (12:04)
[2018-07-21] MEDS: Multivitamins,Ther W-Minerals Tablet 1 TABLET PO (12:04)
[2018-07-21] MEDS: Escitalopram Oxalate 10 MG Tablet PO (12:05)
[2018-07-21] MEDS: amLODIPine 5 MG Tablet PO (12:05)
[2018-07-21] MEDS: Furosemide 20 MG Tablet PO (12:05)
[2018-07-21] MEDS: Enoxaparin 40 MG/0.4 ML Syringe SC (12:05)
[2018-07-21] MEDS: Ranolazine 500 MG Tablet 1000 MG PO ×2 (12:06→21:39)
[2018-07-21] MEDS: Finasteride 5 MG Tablet PO (12:06)
[2018-07-21] MEDS: Clopidogrel Bisulfate 75 MG Tablet PO (12:06)
[2018-07-21] MEDS: Atenolol 50 MG Tablet PO ×2 (12:06→21:39)
[2018-07-21] MEDS: Pantoprazole Sodium 40 MG Tablet PO ×2 (12:06→21:39)
[2018-07-21 12:20] LABS: Bedside Glucose 228 mg/dL (70-110)
[2018-07-21] MEDS: Insulin Lispro 100 UNIT/ML INSULN.PEN SQ ×3 (12:21→21:39)
[2018-07-21] MEDS: Acetaminophen 325 MG Tablet 650 MG PO (12:21)
--- NOTE | 2018-07-21 12:25 | NURSING ---
wound photo: Left Wrist
--- NOTE | 2018-07-21 15:27 | CASEMGMT ---
[facility] Call to Julia at [place] [facility] and she is aware that clinicals were faxed. She states [facility] and states she will get into contact with this RN CM in the am in regards to same. Call to registration to verify MCR A coverage at this time as it was initially listed and now is not listed anymore. land lease information clerk states that the MCR A was verified yesterday and she is unsure how it got taken off but states that she will fix it at this time. Obdulia RN CM
[2018-07-21] MEDS: Glucerna Shake 120 ML LIQUID PO ×2 (16:18→21:46)
[2018-07-21 16:26] LABS: Bedside Glucose 180 mg/dL (70-110)
[2018-07-21] MEDS: Tamsulosin HCl 0.4 MG Capsule 0.8 MG PO (21:39)
[2018-07-21] MEDS: Atorvastatin Calcium 80 MG Tablet PO (21:39)
[2018-07-21] MEDS: MELATONIN 3 MG TABLET PO (21:46)
[2018-07-21 22:21] LABS: Bedside Glucose 170 mg/dL (70-110)
[2018-07-22] VITALS (11 sets, daily range): BP systolic 99–120; BP diastolic 46–57; PULSE 60–69; RESP 12–18; TEMP 36.7–36.9; O2SAT 94–99
[2018-07-22] MEDS: 0.9% NaCl Peripheral Flush Adult/Peds IV ×2 (01:06→05:15)
[2018-07-22] MEDS: Morphine 2 MG/ML Syringe IV ×2 (01:06→05:15)
[2018-07-22 07:05] LABS: Bedside Glucose 103 mg/dL (70-110)
[2018-07-22] MEDS: Multivitamins,Ther W-Minerals Tablet 1 TABLET PO (08:40)
[2018-07-22] MEDS: Glucerna Shake 120 ML LIQUID PO ×2 (08:40→11:10)
[2018-07-22] MEDS: Aspirin E.C. 81 MG Tablet PO (08:40)
[2018-07-22] MEDS: Ranolazine 500 MG Tablet 1000 MG PO (08:41)
[2018-07-22] MEDS: Pantoprazole Sodium 40 MG Tablet PO (08:41)
[2018-07-22] MEDS: Furosemide 20 MG Tablet PO (08:42)
[2018-07-22] MEDS: Escitalopram Oxalate 10 MG Tablet PO (08:42)
[2018-07-22] MEDS: Finasteride 5 MG Tablet PO (08:43)
[2018-07-22] MEDS: Clopidogrel Bisulfate 75 MG Tablet PO (08:43)
--- NOTE | 2018-07-22 09:52 | CASEMGMT ---
This RN CM to room with FERGUSON form at this time and pt is sleeping without distress. Pt does not awaken to knock on the door or verbal stimuli at this time. Pt has no family at bedside at this time. This RN CM will attempt again later. SStzeynep RN CM
[2018-07-22] MEDS: Enoxaparin 40 MG/0.4 ML Syringe SC (10:12)
[2018-07-22] MEDS: amLODIPine 5 MG Tablet PO (10:12)
[2018-07-22] MEDS: Atenolol 50 MG Tablet PO (10:12)
--- NOTE | 2018-07-22 10:32 | PCM.DC.SUM ---
Discharge Date and Diagnosis - Problem List Patient Problems: Active and Suspected Problems Chest pain (Acute) Date of Admission: 07/20/18 Date of Discharge: 07/22/18 - Primary Discharge Diagnosis Active and Suspected Problems Chest pain (Acute) - Secondary Discharge Diagnosis Chronic Problems Left-sided weakness (Chronic) Hyperlipidemia (Chronic) Hypertension (Chronic) Obesity (Chronic) Pacemaker (Chronic) 2001 Chronic respiratory failure (Chronic) baseline 3L continuously CAD (coronary artery disease) (Chronic) Cardiac catheterization 02/24/2017?normal LV size should not, EF 55%, [place] multivessel CAD, patent SVG to diagonal 1, OM 2, and RCA, MASON to LAD previously reported as atretic/nonfunctional (not reevaluated at that time), advised medical therapy DM type 2 (diabetes mellitus, type 2) (Chronic) Obstructive sleep apnea (Chronic) Seizure (Chronic) Aphasia (Chronic) S/P CABG (coronary artery bypass graft) (Chronic) S/P PTCA (percutaneous transluminal coronary angioplasty) (Chronic) CVA (cerebral vascular accident) (Chronic) Residual left-sided weakness Hospital Course and Treatment Imaging Results: Diagnostic Data Wrist X-Ray 07/20/18 18:20 IMPRESSION: Normal x-ray examination of the wrist. Electronically Signed: Ever Raines DO at 18:45 EDT Tel [phone], Service support , Brain CT 07/20/18 18:56 IMPRESSION: Mild age-related changes of the brain. Electronically Signed: Ever Raines DO at 20:13 EDT Tel [phone], Service support , Chest X-Ray 07/20/18 19:15 IMPRESSION: Stable cardiomegaly. Electronically Signed: Ever Raines DO at 20:08 EDT Tel [phone], Service support , Consultations 07/20/18 22:35 Consult: Onc/Wound/shuttlecock feather trimmer Routine Comment: cardiology- Dr Oakes Operations: None Procedures: None Summary of Care Provided: The patient is a 68 year old M with past medical history as listed including recurrent episodes of admission of atypical chest pain. He was admitted on 07/20/2018 with a complaint of chest pain. He also sustained a fall and lacerated his hand. He has been managed for chest pain to rule out ACS. Of note, patient has had numerous admissions for similar chest pain. He was seen in June 2018 with complaint of atypical chest pain and a pharmacological nuclear stress test on was negative for inducible ischemia. He also had a stress echocardiogram in November 2017 which was negative for inducible ischemia but had a poor workload. He had a cardiac cath on 02/24/2017 which demonstrated an occluded right coronary artery with a subtotal left circumflex stent and nonobstructive disease of his ramus and LAD. His venous grafts were widely patent. Troponins x3 were negative and EKG showed no acute ST changes. Cardiology was consulted. In light of him having had recently had a stress echocardiogram and a stress test just in June 2018 which were negative, decision was made not to do any further testing as patient keeps on being admitted for this chest pain. Patient remained stable throughout the admission and chest pain did not recur. He was discharged on 07/22/2018 to follow-up with his primary care doctor and cardiology. Chest and examined prior to discharge. He had no complaints. He had his BiPAP mask on which he took off during review and said he did not have any chest pain or palpitations, dizziness, diarrhea vomiting. Review of systems otherwise negative. Labs and vitals reviewed. Home medication reviewed and reconciled. o/e: Vital Signs Height 5 ft 10.08 in Weight: 255 lb 15.307 oz Weight in Pounds 256.0 lbs Pulse Ox 96 Temperature 98.4 F Pulse Rate [Standing] 66 Pulse Rate [Sitting] 69 Pulse Rate [Lying] 61 Pulse Rate 65 Respiratory Rate 18 Blood Pressure [Standing] 105/52 Blood Pressure [Sitting] 103/53 Blood Pressure [Lying] 110/57 Blood Pressure [BP] 99/49 Blood Pressure 120/57 Blood Pressure Position [BP] Semi-Fowlers Blood Pressure Position Semi-Fowlers General: Alert, Cooperative, Confused, Lethargic HEENT: Atraumatic, PERRLA, EOMI, Normocephalic Oral: Dry Mucosa Neck: Supple, No JVD, Negative Carotid Bruits Lungs: Clear to auscultation, Normal air movement, No rhonchi, No wheeze, No rales Cardiovascular: Regular rate, Regular Rhythm, Normal S1, Normal S2, No murmurs Abdomen: Bowel Sounds Present, Soft, Non Tender, Non-Distended, No Hepato-splenomegaly Extremities: No clubbing, No cyanosis, No edema, Capillary Refill Less than 3 Seconds Skin: No rashes, No breakdown Musculoskeletal: No Tenderness to Palpation of Joints or Extremities Lymphatic: No Cervical, Supraclavicular, or Inguinal Adenopathy Neurological: Cranial nerves II-XII grossly intact, Neuro grossly intact, Motor Exam 5/5 strength throughout Psych/Mental Status: Flat Affect Plan as above. Patient Problems: Active and Suspected Problems Chest pain (Acute) - Physical Exam Vital Signs Temp Pulse Resp BP Pulse Ox 98.4 F 65 18 120/57 L 98 07/22/18 10:18 07/22/18 10:18 07/22/18 10:18 07/22/18 10:18 07/22/18 10:18 Oxygen Flow Rate (L/min) 3 Oxygen Delivery Method Nasal Cannula Weight: 255 lb 15.307 oz Body Mass Index (BMI) 36.6 Finger Stick Blood Glucose 81 Orthostatic Vital Signs Start: 07/21/18 10:30 Freq: q24h Status: Active Protocol: Activity Type Activity Date Activity User E-Sign Co-Sign Detail Recorded Client Recorded Date Recorded By Document 07/22/18 03:35 [facility] [id number] 07/22/18 03:40 [facility] 07/22/18 03:35 Orthostatic Vitals Standing -Blood Pressure (90/60-120/80 mm Hg) 105/52 L -Extremity Use Left Arm -Pulse Rate (60-100 beats/min) 66 Sitting -Blood Pressure (90/60-120/80 mm Hg) 103/53 L -Extremity Use Left Arm -Pulse Rate (60-100 beats/min) 69 Lying -Blood Pressure (90/60-120/80 mm Hg) 110/57 L -Extremity Use Left Arm -Pulse Rate (60-100 beats/min) 61 Intake and Output for Last 24 Hours 07/20/18 07/21/18 07/22/18 23:59 23:59 23:59 Intake Total 240 / 240 960 / 960 240 / 240 Output Total 1070 / 1070 275 / 275 Balance 240 / 240 -110 / -110 -35 / -35 POC Glucose 06/08/0407/21/18 07/21/18 06:32 21:36 16:17 POC Glucose 103 170 H 180 H 07/21/18 12:09 POC Glucose 228 H Discharge Diet: Low fat/ Low Cholesterol Discharge Activity: Return to Normal Activity Weight Bearing Status: Weight bearing as tolerated Call your doctor if you observe: Shortness of breath, Dizziness, Fainting spells, Chest pain Home Medications: Medications to take at Discharge Aspirin E.C. [Ecotrin] 81 mg PO DAILY@0800 06/11/18 Atenolol [Tenormin] 100 mg PO DAILY 06/11/18 Atorvastatin Calcium [Lipitor] 80 mg PO QHS 06/11/18 Cholecalciferol (VIT D3) [Vitamin D3] 3 tab PO DAILY 06/11/18 Clopidogrel Bisulfate [Clopidogrel] 75 mg PO DAILY 06/11/18 Dextrose [Glucose] 4 tab PO PRN PRN 06/11/18 Escitalopram Oxalate [Lexapro] 10 mg PO DAILY 06/11/18 Finasteride [Proscar] 5 mg PO DAILY 06/11/18 Furosemide [Lasix] 20 mg PO DAILY 06/11/18 Insulin Regular, Human [Humulin R U-500 Kwikpen] 120 unit SQ LUNCH 06/11/18 Insulin Regular, Human [Humulin R U-500 Kwikpen] 140 unit SQ DINNER 06/11/18 Insulin Regular, Human [Humulin R U-500 Kwikpen] 175 unit SQ BREAKFAST 06/11/18 Ketoconazole 1 applicatio TP DAILY 06/11/18 Multivitamins,Ther W-Minerals [Multivitamin With Minerals] 1 tablet PO DAILY 06/11/18 Pantoprazole Sodium 40 mg PO BID 06/11/18 Ranolazine [Ranexa] 1,000 mg PO BID 06/11/18 Tamsulosin HCl [Flomax] 0.8 mg PO QHS 06/11/18 Norvasc 5 mg PO DAILY 06/20/18 Acetaminophen [Tylenol Tablet] 650 mg PO Q6H PRN PRN tablet 06/21/18 Levetiracetam [Keppra] 500 mg PO BID 07/20/18 Nitroglycerin (INPATIENT USE) [Nitrostat] 0.4 mg SUBLINGUAL Q5M PRN #30 tablet 07/22/18 Following Prescrptions Were Given to Patient: Nitroglycerin (INPATIENT USE) [Nitrostat] 0.4 mg SUBLINGUAL Q5M PRN #30 tablet PRN Reason: Chest Pain Primary Care Physician: [facility] [Primary Care Provider] - Please follow up with your Primary Care Physician in: one week Patient Instructions: What Is Angina?, Fast-Acting Nitroglycerin, Discharge Instructions: Taking Fast-Acting Nitroglycerin, ED Chest Pain NonCardiac Disposition: Home Minutes spent on discharge:: 35 Patient Condition:: Stable Medical Necessity - Tobacco Use Smoking Status: Former smoker Tobacco Use: Non-smoker Meaningful Use Info Meaningful Use Diagnoses (Choose all that apply): None applicable Code Visit Inpatient E&M: 53955 Disch Hosp
--- NOTE | 2018-07-22 10:33 | DCINST_ITS ---
- Discharge Diagnoses Current Active Problems: Current Active and Chronic Problems Chest pain (Acute) You will use the following diet at home:: Cardiac Your food should be the consistency of: Regular Your liquids should be the consistency of: Regular/Thin Discharge Activity: Return to Normal Activity Weight Bearing Status: Weight bearing as tolerated Call your doctor if you observe: Fever of 101 or Higher, Shortness of breath, Dizziness, Chest pain Instructions: What Is Angina?, Fast-Acting Nitroglycerin, Discharge Instructions: Taking Fast-Acting Nitroglycerin, ED Chest Pain NonCardiac Allergies/Adverse Reactions: Allergies ezetimibe Allergy (Verified 07/20/18 17:53) Unknown Fish Containing Products Allergy (Verified 07/20/18 17:53) Unknown glyburide Allergy (Verified 07/20/18 17:53) Unknown lisinopril Allergy (Verified 07/20/18 17:53) Unknown metformin Allergy (Verified 07/20/18 17:53) Nausea metoprolol Allergy (Verified 07/20/18 17:53) Unknown simvastatin Allergy (Verified 07/20/18 17:53) Unknown Medications to take at Discharge Aspirin E.C. [Ecotrin] 81 mg PO DAILY@0800 06/11/18 Atenolol [Tenormin] 100 mg PO DAILY 06/11/18 Atorvastatin Calcium [Lipitor] 80 mg PO QHS 06/11/18 Cholecalciferol (VIT D3) [Vitamin D3] 3 tab PO DAILY 06/11/18 Clopidogrel Bisulfate [Clopidogrel] 75 mg PO DAILY 06/11/18 Dextrose [Glucose] 4 tab PO PRN PRN 06/11/18 Escitalopram Oxalate [Lexapro] 10 mg PO DAILY 06/11/18 Finasteride [Proscar] 5 mg PO DAILY 06/11/18 Furosemide [Lasix] 20 mg PO DAILY 06/11/18 Insulin Regular, Human [Humulin R U-500 Kwikpen] 120 unit SQ LUNCH 06/11/18 Insulin Regular, Human [Humulin R U-500 Kwikpen] 140 unit SQ DINNER 06/11/18 Insulin Regular, Human [Humulin R U-500 Kwikpen] 175 unit SQ BREAKFAST 06/11/18 Ketoconazole 1 applicatio TP DAILY 06/11/18 Multivitamins,Ther W-Minerals [Multivitamin With Minerals] 1 tablet PO DAILY 06/11/18 Pantoprazole Sodium 40 mg PO BID 06/11/18 Ranolazine [Ranexa] 1,000 mg PO BID 06/11/18 Tamsulosin HCl [Flomax] 0.8 mg PO QHS 06/11/18 Norvasc 5 mg PO DAILY 06/20/18 Acetaminophen [Tylenol Tablet] 650 mg PO Q6H PRN PRN tablet 06/21/18 Levetiracetam [Keppra] 500 mg PO BID 07/20/18 Nitroglycerin (INPATIENT USE) [Nitrostat] 0.4 mg SUBLINGUAL Q5M PRN #30 tablet 07/22/18 The following prescriptions were given: Nitroglycerin (INPATIENT USE) [Nitrostat] 0.4 mg SUBLINGUAL Q5M PRN #30 tablet PRN Reason: Chest Pain Primary Care Physician: [facility] [Primary Care Provider] - Please follow up with your Primary Care Physician in: one week Test Results: Test results from this visit will be discussed in further detail at your follow- up appointment, if applicable. Please Follow Up With: Gerard Oakes MD When: one week Proposed Discharge Date: 07/22/18
--- NOTE | 2018-07-22 10:53 | CASEMGMT ---
This RN CM to room with FERGUSON form at this time, explanation done-pt voices understanding, and FERGUSON form signed at this time. Pt is A/Ox4 at this time. Pt voices no further questions/concerns/needs at this time. Original to chart and copy to pt at this time. SStaten KRISTI GERONIMO
[2018-07-22] MEDS: HYDROcodone Bitartrate/Apap 5/325 Tablet PO (11:06)
[2018-07-22] MEDS: Insulin Lispro 100 UNIT/ML INSULN.PEN SQ (11:13)
[2018-07-22 11:35] LABS: Bedside Glucose 214 mg/dL (70-110)
== END 2018-07-22 10:33 | disposition home or self-care (01) ==
LOC: ED 18:50 → PCU 22:16
PROVIDERS: Internal Medicine Cardiovascular Disease; Admitting Provider Family Medicine; Emergency Provider Emergency Medicine; Referring Provider Family Medicine; Visit Provider Student in an Organized Health Care Education/Training Program
DX: R07.89 Other chest pain (principal); E78.5 Hyperlipidemia, unspecified; S61.512A Laceration without foreign body of left wrist, initial encounter; Z23 Encounter for immunization; I10 Essential (primary) hypertension; I25.10 Atherosclerotic heart disease of native coronary artery without angina pectoris; G40.909 Epilepsy, unspecified, not intractable, without status epilepticus; I69.354 Hemiplegia and hemiparesis following cerebral infarction affecting left non-dominant side; I69.320 Aphasia following cerebral infarction; J96.10 Chronic respiratory failure, unspecified whether with hypoxia or hypercapnia; G47.33 Obstructive sleep apnea (adult) (pediatric); F32.9 Major depressive disorder, single episode, unspecified; E66.01 Morbid (severe) obesity due to excess calories; F41.9 Anxiety disorder, unspecified; N40.0 Benign prostatic hyperplasia without lower urinary tract symptoms; K21.9 Gastro-esophageal reflux disease without esophagitis; Z87.891 Personal history of nicotine dependence; Z68.36 Body mass index [BMI] 36.0-36.9, adult; Z71.3 Dietary counseling and surveillance; Z95.0 Presence of cardiac pacemaker; Z95.1 Presence of aortocoronary bypass graft; Z79.899 Other long term (current) drug therapy; Z79.4 Long term (current) use of insulin; Z79.02 Long term (current) use of antithrombotics/antiplatelets; Z79.82 Long term (current) use of aspirin; Z99.81 Dependence on supplemental oxygen; W45.8XXA Other foreign body or object entering through skin, initial encounter; W22.09XA Striking against other stationary object, initial encounter; Y92.9 Unspecified place or not applicable; W19.XXXA Unspecified fall, initial encounter
CPT/HCPCS: 12002; 36415; 70450; 71045; 73110; 80048; 80053; 80061; 82962; 83735; 84484; 85025; 85027; 85652; 86140; 90715; 93005; 94002; 94003; 96372; 96374; 96376; 97802; 99218; 99285; J7030; A4216; G0378

== ENCOUNTER 2018-08-07 13:08 | Emergency (ER) | payer OTHER, SELFPAY ==
[2018-08-07 13:09] VITALS: BP 174/84; PULSE 60; RESP 17; TEMP 36.4; O2SAT 100; BMI 36.9
--- NOTE | 2018-08-07 13:29 | EKG12_ITS ---
Test Reason : CP Blood Pressure : / mmHG Vent. Rate : 060 BPM Atrial Rate : 060 BPM P-R Int : 302 ms QRS Dur : 122 ms QT Int : 490 ms P-R-T Axes : 000 -21 066 degrees QTc Int : 490 ms Atrial-paced rhythm with prolonged AV conduction Non-specific intra-ventricular conduction delay Nonspecific ST abnormality Abnormal ECG Confirmed by DI MCCAIN ([id number]), online editor ALBANIA GREENE ([id number]) on 08/11/2018 2:00:07 PM Referred By: JOSE Confirmed By:ID MCCAIN
--- NOTE | 2018-08-07 13:29 | RAD_ITS ---
STUDY: X-RAY CHEST REASON FOR EXAM: Male, 68 years old. TECHNIQUE: COMPARISON: July 20, 2018 FINDINGS: The heart is at the upper limits of normal. Both lung flores are clear except to note heavy markings in the left base. Linear atelectasis in the right base. No evidence of pleural effusion or pneumothorax. The trachea is in the midline. A permanent pacemaker is noted with [address] The visualized bones are intact. RAD/Chest 1 View (Portable) IMPRESSION: Heavy markings in the left base. Electronically Signed: Ijeoma Beckett, at 14:07 EDT Tel , Service support ,
--- NOTE | 2018-08-07 13:47 | ED.DEP ---
ED Disposition - Plan for ED Patient: Disposition: Psychiatric Hospital or Unit Diagnosis: Chronic chest pain Instructions: CHEST PAIN, Uncertain Cause Referrals: Town Doctor,Out of [NON-STAFF] -
--- NOTE | 2018-08-07 13:51 | ED.VIS.GEN ---
History of Present Illness <Monica Tipton - Last Filed: 08/07/18 14:18> Informant: Patient, Significant Other Onset: Today Timing: Continuous Current Severity: Mild Maximum Severity: Mild Narrative: Wally is a 68 y/o who has episodes of chest pain that radiates down his left side of his body for years. He has been seen here in the past for this times. Usually requires Dilaudid. Prior similar symptoms: Yes Recent Illness/Hospitalization: No - Frequent efrequent emergency department visits for the same complaint <Machelle Solitario - Last Filed: 10/24/18 09:41> Chief Complaint: Chest Pain Past Medical History <Monica Tipton - Last Filed: 08/07/18 14:18> Surgical History: angioplasty, coronary bypass surgery, pacemaker implantation, - - cabg,cholecystectemy, hernia, left knee, 4 stents Smoking Status: Former smoker - Family History Maternal Family History: Reports: Heart Disease Paternal Family History: Reports: - - Patient does not know his paternal family history. <Machelle Solitario - Last Filed: 10/24/18 09:41> - Allergies and Home Meds Allergies/Adverse Reactions: Allergies ezetimibe Allergy (Verified 08/07/18 13:15) Unknown Fish Containing Products Allergy (Verified 08/07/18 13:15) Unknown glyburide Allergy (Verified 08/07/18 13:15) Unknown lisinopril Allergy (Verified 08/07/18 13:15) Unknown metformin Allergy (Verified 08/07/18 13:15) Nausea metoprolol Allergy (Verified 08/07/18 13:15) Unknown simvastatin Allergy (Verified 08/07/18 13:15) Unknown Primary Care Physician: [facility] [address] Doctor,Out of [NON-STAFF] - Review of Systems General: Denies: Chills, Fever, Sweats Eyes: Denies: Visual changes - bilaterally, Diplopia ENT: Denies: Rhinorrhea, Sore throat Cardiovascular: Reports: Chest pain. Denies: Palpitations Respiratory: Denies: Dyspnea, Cough, Dyspnea on exertion Gastrointestinal: Denies: Abdominal pain, Nausea, Vomiting, Diarrhea, Melena, Hematochezia Genitourinary: Denies: Dysuria, Hematuria, Frequency Musculoskeletal: Denies: Back pain, Extremity Pain Skin: Denies: Rash, Wounds Neurological: Denies: Headache, Weakness, Numbness <Machelle Solitario - Last Filed: 10/24/18 09:41> Physical Exam Vital Signs/Narrative: Vital Signs Temp Pulse Resp BP Pulse Ox 08/07/18 13:57 63 18 167/83 H 100 08/07/18 13:09 97.6 F L 60 17 174/84 H 100 <Monica Tipton - Last Filed: 08/07/18 14:18> Vital Signs/Narrative: Vital Signs Temp Pulse Resp BP Pulse Ox 08/07/18 13:09 97.6 F L 60 17 174/84 H 100 Inital Vital Signs reviewed: Yes General: Well nourished, Well developed, No Acute Distress Head: Normocephalic, Atraumatic Eyes: Perrl, EOMI ENT: Moist mucous membranes, No rhinorrhea Neck: Supple, Nontender Cardiovascular: Regular rate, Regular rhythm, No murmurs Respiratory: No distress, CTA bilaterally, Chest nontender Abdomen: Soft, Nontender, Nondistended, Normal bowel sounds Back: Nontender, Normal Inspection Extremities: Nontender, No edema Skin: Normal color, No rash Neurological: Alert, Oriented x3, - - Chronic left-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 Difficulty with his speech which is typical for these episodes no facial droop or paresthesia noted. No new focal deficit noted. Psychological: Normal affect, Normal Mood <Machelle Solitario - Last Filed: 10/24/18 09:41> Diagnostic/Tx/Re-eval - Medical Decision Making The patient was seen and examined with the nurse practitioner I agree with history and physical as above on exam he is resting company the bed lungs clear heart tones normal abdomen soft vital signs unremarkable reports the chest pain is having is a chronic recurring chest pain he has frequently she indicates she does not wish to have any ED work-up done of any kind as she simply wants him to get morphine and take him home which usually helps his symptoms she clearly understands with his prior history of heart disease the concept of occult cardiac disease and other life and conditions but wants him to follow-up with his outpatient providers <Monica Tipton - Last Filed: 08/07/18 14:18> Chest X-Ray - ED: 1 View - Medical Decision Making The patient has these episodes at least once a month. He is a frequent patient in the emergency department for this very same complaint. He has seen his primary care doctor in the cause of his chest and left-sided body pain are unknown. He states this is typical and there are no new symptoms today. He woke up with the pain. His states sometimes she has difficulty with his speech when he has the symptoms. She states usually morphine helps the pain and he is discharged home. She has taken him to his PCP and they have Veliz writing him pain medication to prevent him from coming to the emergency department. Denied fever or cough or dyspnea or exertional symptoms. He was not diaphoretic he denies nausea vomiting or diarrhea or abdominal pain. He denies trauma. Differential diagnosis includes cardiac chest pain,PE, infectious source. EKG: Atrial paced rhythm Ventricular rate 60 VT interval 302 QRS duration 122 QT/QTc 490/490 No acute STEMI Nonspecific ST abnormalities. Chest x-ray: There is no leg pain to palpation or swelling. MSPs x4 intact although weaker on the left which is chronic from his previous stroke. He denied pleuritic chest pain. He is not tachycardic or dyspneic or febrile concerning for PE or infectious respiratory process. He does have tenderness to his chest wall to palpation. Discussing his case with his she does not wish him to have further work-up in the ED. this is a typical episode for him and she requests he have an injection of morphine and be discharged home. She understands that we cannot prescribe him chronic pain medicine. She was encouraged to return to his PCP. The cause of his symptoms are unclear but he appears to be medically stable and through shared decision making he will be treated with injection of Marcaine and discharged home to follow-up with primary care provider. He remained hemodynamically stable and nontoxic in appearance. Patient and are comfortable discharge plan. Final impression: Nonspecific chronic chest pain etiology unclear <Machelle Solitario - Last Filed: 10/24/18 09:41> ED Disposition <Monica Tipton - Last Filed: 08/07/18 14:18> <Machelle Solitario - Last Filed: 10/24/18 09:41> - Plan for ED Patient: Disposition: Home or Assisted Living Diagnosis: Chronic chest pain Instructions: CHEST PAIN, Uncertain Cause Referrals: [facility] Doctor,Out of [NON-STAFF] -
[2018-08-07] MEDS: morphine 10 MG/ML Syringe 8 MG SC (13:55)
[2018-08-07 13:57] VITALS: BP 167/83; PULSE 63; RESP 18; O2SAT 100
[2018-08-07 14:42] VITALS: BP 143/63; PULSE 60; RESP 18; O2SAT 99
--- NOTE | 2018-08-07 14:44 | ED.RN ---
PT DOES NOT READILY WAKE UP. STERNAL RUB BRINGS PT UP IMMEDIATELY DOES AMMONIA CHLORIDE. PT STATES THIS IS WHAT HAPPENS. WILL MONITOR AFTER HE GETS PAIN MEDICATION. STATES HE IS HAVING A SPELL. DR KIM. SPOUSE TOLD THAT PT SHOULD PROBABLY NOT BE ON PAIN MEDICATION IF THIS IS WHAT HAPPENS
[2018-08-07 15:12] VITALS: BP 164/78; PULSE 60; RESP 20; O2SAT 98
== END 2018-08-07 15:13 | disposition home or self-care (01) ==
PROVIDERS: Emergency Provider Nurse Practitioner
DX: R07.9 Chest pain, unspecified (principal); G89.29 Other chronic pain; I69.354 Hemiplegia and hemiparesis following cerebral infarction affecting left non-dominant side; Z87.891 Personal history of nicotine dependence
CPT/HCPCS: 71045; 93005; 96372; 99282

== ENCOUNTER 2018-09-01 07:00 | Emergency (ER) | payer OTHER, SELFPAY ==
[2018-09-01 07:01] VITALS: BP 169/79; PULSE 60; RESP 15; TEMP 36.6; O2SAT 98; BMI 37.3
[2018-09-01 07:19] VITALS: O2SAT 98
[2018-09-01] MEDS: Mag Hydrox/Al Hydrox/Simeth 30 ML UDC PO (07:26)
--- NOTE | 2018-09-01 07:34 | ED.VISSUMM ---
- ER Visit Summary Date of Service: 09/01/18 Chief Complaint: Chronic chest pain History of Present Illness: The patient is a 68 M who has a history of chronic chest pain. He describes it as pain in the left side of his chest. He has had this numerous times before and has had no etiology found. He has had a CABG and has a atrial pacemaker. He is on Plavix and aspirin. Last stress test was June 2018. Last heart catheterization in February 2017. Last time the patient had this he received a dose of morphine and states that he was somnolent for about 2 days. states that she does not want him to have the morphine again. They try Tylenol and anti-inflammatories at home with no improvement. There is been no change in his chronic dyspnea and he is still on his home nasal cannula. No change in cough. No leg swelling. No bowel or bladder complaints. Patient also notes a sore throat and reports no relief with Chloraseptic. Physical Examination: Afebrile vital signs stable Gen: Well-nourished well-developed Head: Normocephalic atraumatic Eyes: Perrl EOMI ENT: TMs clear no rhinorrhea moist mucous membranes Neck: Supple no lymphadenopathy no JVD nontender CVS: Regular rate rhythm no murmurs normal S1-S2 Respiratory: No distress clear to auscultation bilaterally chest nontender Abdomen: Soft nontender nondistended normal bowel sounds no masses Back: Nontender Extremity: Nontender no edema Skin: Normal color no rash Neuro: alert orientated ?3 CN II-XII intact speech is partially garbled Psych: Normal affect normal mood Emergency Department Course and Treatment: EKG demonstrates an atrial paced rhythm at a rate of 60. Patient received a GI cocktail. He was reassessed. He states his throat is better but his chest pain remains. is adamant that he not have any morphine which is typically helped him in the past. He is on Plavix and aspirin. I gave a 50 mg dose of Toradol and he is improved. is asking if she can to have that at home. We talked about the risk of gastritis/ulcers/intestinal bleeding. I will write for a couple of Toradol p.o. at home. He is to use this sparingly. She states that he gets this only once every week to 2 weeks. He was advised to take it with food. Impression: 1. Acute on chronic chest pain This note was generated with [employer] dictation software. It may contain incorrect words, spelling, and punctuation that were not noted in review of the chart prior to signing ED Disposition - Plan for ED Patient: Disposition: Home or Assisted Living Instructions: CHEST PAIN, Uncertain Cause Prescriptions: Ketorolac [Toradol] 10 mg PO X1 #5 tab Prescription Printed [facility] - Keep Mary appointment
[2018-09-01 08:03] VITALS: BP 155/63; PULSE 61; RESP 16; O2SAT 97
--- NOTE | 2018-09-01 08:05 | EKG12_ITS ---
Test Reason : CP/SOB Blood Pressure : / mmHG Vent. Rate : 060 BPM Atrial Rate : 060 BPM P-R Int : 284 ms QRS Dur : 124 ms QT Int : 498 ms P-R-T Axes : 090 -29 075 degrees QTc Int : 498 ms Atrial-paced rhythm with prolonged AV conduction Non-specific intra-ventricular conduction delay Nonspecific ST and T wave abnormality Abnormal ECG Confirmed by BRYN GUALLPA, JULIO C ([id number]), online editor ALBANIA GREENE ([id number]) on 09/03/2018 1:45:01 PM Referred By: CHRIS Confirmed By:BELEN CLEMENTE MD
[2018-09-01] MEDS: Ketorolac 15 MG/ML Vial IV (08:14)
[2018-09-01 09:07] VITALS: BP 157/80; PULSE 60; RESP 20; O2SAT 97
[2018-09-01 09:28] VITALS: BP 169/74; PULSE 72; RESP 16; O2SAT 94
== END 2018-09-01 09:29 | disposition home or self-care (01) ==
PROVIDERS: Emergency Provider Emergency Medicine
DX: G89.29 Other chronic pain (principal); R07.9 Chest pain, unspecified; J02.9 Acute pharyngitis, unspecified; I25.10 Atherosclerotic heart disease of native coronary artery without angina pectoris; E11.9 Type 2 diabetes mellitus without complications; I10 Essential (primary) hypertension; E78.00 Pure hypercholesterolemia, unspecified; Z95.1 Presence of aortocoronary bypass graft; Z95.0 Presence of cardiac pacemaker; Z79.82 Long term (current) use of aspirin; Z86.73 Personal history of transient ischemic attack (TIA), and cerebral infarction without residual deficits; Z87.891 Personal history of nicotine dependence
CPT/HCPCS: 93005; 96374; 99284; A4216

== ENCOUNTER 2018-09-11 11:10 | Emergency (ER) | payer OTHER, SELFPAY ==
[2018-09-11 11:11] VITALS: BP 162/75; PULSE 60; RESP 15; TEMP 36.5; O2SAT 98; BMI 36.3
--- NOTE | 2018-09-11 11:34 | EKG12_ITS ---
Test Reason : CP Blood Pressure : / mmHG Vent. Rate : 060 BPM Atrial Rate : 062 BPM P-R Int : 232 ms QRS Dur : 118 ms QT Int : 466 ms P-R-T Axes : 067 -19 052 degrees QTc Int : 466 ms Atrial-paced rhythm with prolonged AV conduction Non-specific intra-ventricular conduction delay Abnormal ECG Confirmed by BRYN GUALLPA, JULIO C ([id number]), video effects editor NADINE FERRER ([id number]) on 09/13/2018 1:54:44 PM Referred By: ANDRESSA Confirmed By:BELEN CLEMENTE MD
--- NOTE | 2018-09-11 11:34 | RAD_ITS ---
STUDY: X-RAY CHEST REASON FOR EXAM: Male, 68 years old. Chest pain TECHNIQUE: AP COMPARISON: 08/07/2018 FINDINGS: Stable appearance of left subclavian dual chamber cardiac conduction device. Sternal wires and mediastinal surgical clips compatible with prior CABG. The lungs are clear and expanded. There is no demonstrated pleural abnormality. There is mild cardiac enlargement. Normal mediastinum and cata. Normal visualized pulmonary arteries. Normal visualized aortic arch and descending thoracic aorta. Normal visualized thoracic spine. Normal visualized ribs, clavicles, and shoulders. There is no demonstrated abnormality of the visualized soft tissue structures of the upper abdomen. RAD/Chest 1 View (Portable) IMPRESSION: Stable, nonacute portable x-ray examination of the chest. Electronically Signed: Karlos Cabrera MD at 12:29 EDT , Service support ,
[2018-09-11 12:03] LABS: Absolute Lymphocyte Count 0.68 X10^3/uL (0.83-4.51); Absolute Neutrophil Count 3.2 X10^3/uL (2.0-7.7); Basophil# 0.01 X10^3/uL; Basophil% 0.2 % (0-1); Eosinophil# 0.09 X10^3/uL; Eosinophils% 2.2 % (0-5); Hematocrit 39.4 % (40-54); Hemoglobin 12.7 g/dL (13.0-16.5); Lymphocyte # 0.68 X10^3/ul (4.0); Lymphocyte % 16.5 % (19-41); Mean Corp Hgb Conc 32.2 g/dL (32-36); Mean Corpuscular Hgb 30.9 pg (27.0-32.0); Mean Corpuscular Volume 95.9 fL (80-94); Mean Platelet Vol. 10.6 fl (6.2-12.0); Monocyte# 0.18 X10^3/uL; Monocyte% 4.4 % (0-10); NRBC Flagged by Analyzer 0 % (0-5); Neutrophil # 3.15 X10^3/uL (2.7-7.7); Neutrophil % 76.5 % (47-70); Platelet Count 135 K/mm3 (150-450); RBC Distribution Width CV 13.7 % (11.6-14.6); RBC Distribution Width SD 47.8 fl (35.1-43.9); Red Blood Count 4.11 M/mm3 (4.6-6.2); White Blood Count 4.1 K/mm3 (4.4-11.0)
[2018-09-11 12:17] LABS: Anion Gap 6 (5-15); BUN 17 mg/dL (7-18); BUN/Creat Ratio 18.2 RATIO (10-20); Calcium,Total 8.3 mg/dL (8.5-10.1); Chloride 103 mmol/L (98-107); Creatinine, Serum 0.93 mg/dL (0.70-1.30); EST Glomerular Filtration Rate 85 mL/min (>60); Est Glom Filt Rate - Afr Amer 103 mL/min (>60); Estimated Creatinine Clearance 78.49 ml/min; Glucose 215 mg/dL (74-106); Potassium 3.7 mmol/L (3.5-5.1); Sodium Level 139 mmol/L (136-145)
[2018-09-11 13:32] VITALS: BP 177/83; PULSE 61; RESP 18; O2SAT 98
--- NOTE | 2018-09-11 13:45 | ED.VISSUMM ---
- ER Visit Summary Date of Service: 09/11/18 Chief Complaint: Chest pain History of Present Illness: The patient is a 68 M history of CAD, NC with prior PE, prior quadruple bypass in 2006. And cardiac stents. Also history of diabetes, hypertension and renal insufficiency. Patient is on Plavix and aspirin. He has intermittent frequent recurrent chest pain. States his had chest pain since Thursday. Is been constant for the last 4 days. Not associated with exertion. No new dyspnea. No radiation. Pain goes across the chest. He has been taking sublingual nitro at home with limited to no relief. Patient is been seen for the similar type of pain before. Physical Examination: Well-appearing female. Vital signs are stable afebrile. Pulse ox 98% on room air no hypoxia. H EENT exam unremarkable. Neck nontender no JVD. Lungs clear to auscultation bilaterally. Heart regular rhythm no murmur. Is a well-healed sternotomy incision over his anterior chest vertically. Chest is nontender. No ecchymosis or bruising. No redness or warmth. No crepitance. He also has a pacemaker. Abdomen is soft and nontender. Normal bowel sounds no peritoneal signs. Obese. Patient is moving all 4 extremities. Neurovascular intact. Calves are nontender without edema or cords. Equal symmetrical radial pulses. Neurologically he is awake and alert with no focal motor deficits. Test Results: EKG is a paced rhythm rate of 60 with no acute signs of NC or ischemia. Portable chest x-ray shows cardiomegaly. Chronic changes. Possibly a left pleural effusion. Otherwise no acute abnormality. No significant change. Read both by myself the radiologist. CBC shows a white count of 4. Hemoglobin of 12 which is his baseline anemia. Chemistries are unremarkable normal creatinine and gap. Glucose of 215. Troponin normal. Emergency Department Course and Treatment: Patient with atypical nonexertional chest pain that is not relieved by nitroglycerin at home. Has a negative work-up. And negative troponin with 4 days of constant pain. This does not sound like a PE. It is not pleuritic. He has had no hemoptysis. Repeat exam at 1340 5 PM the patient is doing well. He denies his discussed all test results. They are comfortable with him being discharged home. Treatment Plan: Tylenol and/or Motrin for pain. [facility] Disposition: Discharge Impression: Chest pain of uncertain etiology History of CAD, NC, prior CABG and pacemaker. History of diabetes This note was generated with [employer] dictation software. It may contain incorrect words, spelling, and punctuation that were not noted in review of the chart prior to signing ED Disposition - Plan for ED Patient: [facility] [[facility] Provider] -
--- NOTE | 2018-09-11 13:50 | ED.DEP ---
ED Disposition - Plan for ED Patient: Disposition: Home or Assisted Living Instructions: CHEST PAIN, Uncertain Cause [facility]errals: [facility] [Primary Care Provider] - 3-5 Days if not improving Additional Instructions: Continue current medications. Follow-up with your doctors. Tylenol or Motrin for pain.
[2018-09-11 14:15] VITALS: BP 173/83; PULSE 60; RESP 13; O2SAT 97
== END 2018-09-11 14:16 | disposition home or self-care (01) ==
PROVIDERS: Emergency Provider Emergency Medicine
DX: R07.9 Chest pain, unspecified (principal); I25.10 Atherosclerotic heart disease of native coronary artery without angina pectoris; E11.9 Type 2 diabetes mellitus without complications; I10 Essential (primary) hypertension; I25.2 Old myocardial infarction; Z95.1 Presence of aortocoronary bypass graft; Z95.0 Presence of cardiac pacemaker; Z79.82 Long term (current) use of aspirin; Z86.711 Personal history of pulmonary embolism; Z95.5 Presence of coronary angioplasty implant and graft; R19.7 Diarrhea, unspecified
CPT/HCPCS: 71045; 80048; 84484; 85025; 93005; 99284; A4216

== ENCOUNTER 2018-12-03 02:27 | Emergency (ER) | payer OTHER, SELFPAY ==
[2018-12-03 02:28] VITALS: BP 183/76; PULSE 60; RESP 20; TEMP 36.4; BMI 36.5
--- NOTE | 2018-12-03 02:40 | RAD_ITS ---
HISTORY: CHEST TIGHTNESS THAT STARTED 2 DAYS AGO. EXAM: XR Chest 1 View: COMPARISON: September 11, 2018 FINDINGS: # of images incl. paperwork: 1 Dual lead left subclavian cardiac pacer is unchanged. Sternal wires persists. Pulmonary edema is mild and similar Heart is enlarged. Shoulder arthritis and thoracic spondylosis is similar Pulmonary vascularity is indistinct. No effusions. RAD/Chest 1 View (Portable) IMPRESSION: CHF unchanged. at 0307 Reported and signed by: Israel Jones MD Electronically Signed: Israel Jones MD at 3:06 EDT Tel , Service support ,
--- NOTE | 2018-12-03 02:40 | CT_ITS ---
HISTORY: CHEST TIGHTNESS X 2 DAYS, APHASIA, HX TIA, SZ, HTN, AR Technique:CT Head or Brain W/O IV Contrast Number of Images including paperwork:270 Comparison: None available. Findings: CT images of the head were obtained without contrast. Periventricular deep and subcortical white matter disease is present. Paranasal sinuses are clear. The brain is atrophic. Calcific ASCVD involves intracranial arteries. No acute intracranial edema or hemorrhage. No acute abnormality of orbits. Middle ear cavities and mastoid air cells are well aerated. Skull is normal. CT/Brain/Head without Contrast IMPRESSION: No acute intracranial abnormality. Chronic changes as above. ASPECT 10. Individualized dose optimization techniques were used for this CT. at 0320 Reported and signed by: Israel Jones MD Electronically Signed: Israel Jones MD at 3:19 EDT Tel , Service support ,
--- NOTE | 2018-12-03 02:40 | EKG12_ITS ---
Test Reason : CHEST PAIN Blood Pressure : / mmHG Vent. Rate : 060 BPM Atrial Rate : 060 BPM P-R Int : 268 ms QRS Dur : 126 ms QT Int : 480 ms P-R-T Axes : 104 -21 068 degrees QTc Int : 480 ms Atrial-paced rhythm with prolonged AV conduction Non-specific intra-ventricular conduction block Abnormal ECG Confirmed by PADILLA GUALLPA, CALI ([id number]), copy editor NADINE FERRER ([id number]) on 12/13/2018 11:03:47 AM Referred By: JAVIER Confirmed By:CALI CAUSEY MD
[2018-12-03 02:47] LABS: Absolute Neutrophil Count 3.5 X10^3/uL (2.0-7.7); Basophil# 0.02 X10^3/uL; Basophil% 0.4 % (0-1); Eosinophil# 0.15 X10^3/uL; Eosinophils% 2.8 % (0-5); Hematocrit 38.6 % (40-54); Hemoglobin 12.8 g/dL (13.0-16.5); Lymphocyte % 22.6 % (19-41); Mean Corp Hgb Conc 33.2 g/dL (32-36); Mean Corpuscular Hgb 31.9 pg (27.0-32.0); Mean Corpuscular Volume 96.3 fL (80-94); Mean Platelet Vol. 10.4 fl (6.2-12.0); Monocyte% 7.5 % (0-10); NRBC Flagged by Analyzer 0 % (0-5); Neutrophil # 3.53 X10^3/uL (2.7-7.7); Neutrophil % 66.3 % (47-70); Platelet Count 148 K/mm3 (150-450); RBC Distribution Width CV 15.9 % (11.6-14.6); RBC Distribution Width SD 56.2 fl (35.1-43.9); Red Blood Count 4.01 M/mm3 (4.6-6.2); White Blood Count 5.3 K/mm3 (4.4-11.0)
[2018-12-03 03:04] LABS: Anion Gap 6 (5-15); BUN 15 mg/dL (7-18); BUN/Creat Ratio 14.9 RATIO (10-20); Calcium,Total 8.4 mg/dL (8.5-10.1); Chloride 103 mmol/L (98-107); Creatinine, Serum 1.01 mg/dL (0.70-1.30); EST Glomerular Filtration Rate 78 mL/min (>60); Est Glom Filt Rate - Afr Amer 94 mL/min (>60); Estimated Creatinine Clearance 72.28 ml/min; Glucose 200 mg/dL (74-106); Potassium 3.8 mmol/L (3.5-5.1); Sodium Level 141 mmol/L (136-145)
[2018-12-03] MEDS: Ketorolac 30 MG/ML Syringe IV (03:18)
[2018-12-03 03:19] VITALS: O2SAT 96
[2018-12-03 03:29] VITALS: BP 180/86; PULSE 60; RESP 15; O2SAT 98
--- NOTE | 2018-12-03 04:15 | ED.DCSUM_ITS ---
- ER Visit Summary Date of Service: 12/03/18 Chief Complaint: Chest pain History of Present Illness: The patient is a 68 M who has a long established history of chronic left-sided chest pain. He describes it today as an ache left mid chest going towards his axilla. This is the same pain that he has had for years. There is no pleuritic component to it. There are no leg symptoms. No tearing sensation. 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 They are currently awaiting [place] pain management appointment. This episode began on Thursday so it is now been going on for over 2 days. Starting yesterday states the patient began not spea choco. This is also been a problem in the past and was felt to be somatoform disorder by his doctors. In 2012 similar occurrence occurred here and was documented which I reviewed. No shortness of breath. No cough. Nursing notes weakness on the left side of his body however he is able to hold the clipboard and write messages to me. He is able to mouth some words to me and actually is able to make some words come out that I can understand. Physical Examination: Afebrile vital signs stable Gen: Well-nourished well-developed Head: Normocephalic atraumatic Eyes: Perrl EOMI ENT: TMs clear no rhinorrhea moist mucous membranes Neck: Supple no lymphadenopathy no JVD nontender CVS: Regular rate rhythm no murmurs normal S1-S2 Respiratory: No distress clear to auscultation bilaterally chest nontender Abdomen: Soft nontender nondistended normal bowel sounds no masses Back: Nontender Extremity: Nontender no edema Skin: Normal color no rash (particular vesicular rash in the dermatomal distribution where the patient's pain is at) Neuro: alert orientated ?3 CN II-XII intact normal strength sensation cerebellar Psych: Normal affect normal mood Test Results: EKG showed a paced rhythm. Troponin was negative. Blood sugar 200. CT brain negative and chest x-ray negative. Emergency Department Course and Treatment: I gave the patient Toradol which helped 2 visits ago he states it did not help this time. We will use Lidoderm patches. does not wish narcotics as he had a bad experience with morphine. I feel the patient's appropriate for discharge as the symptoms are chronic in nature. We can try some Lidoderm patch and see if that helps. Impression: 1. Acute on chronic chest pain 2. Somatoform disorder This note was generated with [employer] dictation software. It may contain incorrect words, spelling, and punctuation that were not noted in review of the chart prior to signing ED Disposition - Plan for ED Patient: Disposition: Home or Assisted Living Instructions: CHEST PAIN, Uncertain Cause Prescriptions: Lidocaine [Lidoderm Patch] 1 patch TOPICAL DAILY PRN #10 patch PRN Reason: Pain Score 1-10/10 Prescription Printed [facility] [[facility]] - As soon as possible Additional Instructions: If you find that the patch we applied tonight was helpful fill the prescription otherwise no need to fill the prescription.
[2018-12-03] MEDS: Lidocaine 5% Patch 1 PATCH TOPICAL (04:30)
[2018-12-03 04:36] VITALS: BP 175/70; PULSE 60; RESP 18; O2SAT 97
== END 2018-12-03 04:36 | disposition home or self-care (01) ==
PROVIDERS: Emergency Provider Emergency Medicine
DX: G89.29 Other chronic pain (principal); R07.9 Chest pain, unspecified; F45.9 Somatoform disorder, unspecified; R53.1 Weakness; E11.9 Type 2 diabetes mellitus without complications; I10 Essential (primary) hypertension; E78.00 Pure hypercholesterolemia, unspecified; Z86.73 Personal history of transient ischemic attack (TIA), and cerebral infarction without residual deficits; Z95.1 Presence of aortocoronary bypass graft; Z95.0 Presence of cardiac pacemaker; Z95.5 Presence of coronary angioplasty implant and graft
CPT/HCPCS: 70450; 71045; 80048; 84484; 85025; 93005; 96374; 99284; A4216

== ENCOUNTER 2019-01-08 09:42 | Emergency (ER) | payer OTHER, SELFPAY ==
[2019-01-08] VITALS (15 sets, daily range): BP systolic 115–156; BP diastolic 67–115; PULSE 58–67; RESP 16–18; TEMP 36.3; O2SAT 95–99; BMI 37.4
--- NOTE | 2019-01-08 09:55 | CT_ITS ---
STUDY: CT BRAIN WITHOUT CONTRAST REASON FOR EXAM: Male, 68 years old. Altered status. Patient nonverbal. RADIATION DOSAGE (If Supplied By Facility): CTDIvol = ( 44.99 ) mGy, DLP = ( 846.73 ) mGycm TECHNIQUE: Transaxial CT imaging of the brain was performed without administration of intravenous contrast material. Individualized dose optimization techniques were used for this CT. COMPARISON: December 03, 2018. FINDINGS: Normal soft tissue structures. Normal calvarium. There is mild cerebral atrophy with widening of the extra-axial spaces and ventricular dilatation. There are areas of decreased attenuation within the white matter tracts of the supratentorial brain, consistent with microvascular disease changes. Normal basal ganglia and thalami. Normal brainstem. Normal cerebellum. There is no intracranial hemorrhage. There are no findings of an acute ischemic infarction. Normal visualized paranasal sinuses. CT/Brain/Head without Contrast IMPRESSION: Chronic involutional changes of the brain. Stable appearance. Electronically Signed: Shai Mcclendon MD at 11:22 EST , Service support ,
--- NOTE | 2019-01-08 09:55 | EKG12_ITS ---
Test Reason : ILLNESS Blood Pressure : / mmHG Vent. Rate : 060 BPM Atrial Rate : 060 BPM P-R Int : 230 ms QRS Dur : 120 ms QT Int : 470 ms P-R-T Axes : 076 -21 091 degrees QTc Int : 470 ms Atrial-paced rhythm with prolonged AV conduction Non-specific intra-ventricular conduction delay Nonspecific ST and T wave abnormality Abnormal ECG Confirmed by PADILLA GUALLPA, CALI ([id number]), online editor ALBANIA GREENE ([id number]) on 01/11/2019 10:00:49 AM Referred By: GRICELDA Confirmed By:CALI CAUSEY MD
--- NOTE | 2019-01-08 09:57 | ED.VIS.STROK ---
History of Present Illness Chief Complaint: Mental Health Detail of Chief Complaint: Difficulty using left side with chronic numbness and difficulty ambulating Informant: Significant Other Onset: Days - Onset January 06 Context: Sudden Onset Timing: Continuous Quality and Location: Left Arm Parasthesia, Left Leg Parasthesia, Left Arm Weakness, Left Leg Weakness, Slurred Speech, Expressive Aphasia, Difficulty with Ambulation Current Severity: Severe Maximum Severity: Severe Worsened by: Possibly related to sister's January 05 Relieved by: Nothing Associated Symptoms: Headache, Chest Pain, - Narrative: Patient is a 68-year-old male who presents with more than 1 had chest pain is taken 3 nitro. He is also had difficulty using his left side and ambulating since . informed me that his sister on Thursday. Sister had history of cancer. states was sudden. He has not done [facility] since her . He has had multiple TIAs in the past. There is no history of trauma. Patient comprehends what is sad and attempts to answer. I believe he is answering questions correctly however his speech is markedly garbled. He reports problems with his vision and partial visual field cut. Difficult to determine exactly what type of field cut he may or may not have. He is having difficulty identifying objects as well. Uncertain whether secondary to his visual impairment or other reasons. Prior similar symptoms: Yes Recent Illness/Hospitalization: Yes - Past Medical History (1) CAD (coronary artery disease) Status: Chronic Comment: Cardiac catheterization 02/24/2017?normal LV size should not, EF 55%, [place] multivessel CAD, patent SVG to diagonal 1, OM 2, and RCA, MASON to LAD previously reported as atretic/nonfunctional (not reevaluated at that time), advised medical therapy (2) CVA (cerebral vascular accident) Status: Chronic Comment: Residual left-sided weakness (3) Chronic respiratory failure Status: Chronic Comment: baseline 3L continuously (4) DM type 2 (diabetes mellitus, type 2) Status: Chronic (5) Hyperlipidemia Status: Chronic (6) Hypertension Status: Chronic (7) Left-sided weakness Status: Chronic (8) Obesity Status: Chronic (9) Obstructive sleep apnea Status: Chronic (10) S/P CABG (coronary artery bypass graft) Status: Chronic (11) S/P PTCA (percutaneous transluminal coronary angioplasty) Status: Chronic (12) Seizure Status: Chronic Past Medical History - Allergies and Home Meds Allergies/Adverse Reactions: Allergies ezetimibe Allergy (Verified 01/08/19 09:46) Unknown Fish Containing Products Allergy (Verified 01/08/19 09:46) Unknown glyburide Allergy (Verified 01/08/19 09:46) Unknown lisinopril Allergy (Verified 01/08/19 09:46) Unknown metformin Allergy (Verified 01/08/19 09:46) Nausea metoprolol Allergy (Verified 01/08/19 09:46) Unknown simvastatin Allergy (Verified 01/08/19 09:46) Unknown Primary Care Physician: [facility] [Primary Care Provider] - Prior records reviewed: Yes Surgical History: angioplasty, coronary bypass surgery, pacemaker implantation, - - cabg,cholecystectemy, hernia, left knee, 4 stents Smoking Status: Never smoker Alcohol: None Drugs: None - Family History Maternal Family History: Reports: Heart Disease Paternal Family History: Reports: - - Patient does not know his paternal family history. Review of Systems ROS: Unable to Obtain - Most questions were yes knows that patient could not yes or no to determine if he does or does not have the symptoms. General: Denies: Chills, Fever Eyes: Reports: Visual changes - bilaterally ENT: Reports: - - Denies ringing in his ears. Has significant hearing impairment. Denies: Sore throat Cardiovascular: Reports: Chest pain Respiratory: Reports: Dyspnea. Denies: Cough, Dyspnea on exertion Gastrointestinal: Denies: Abdominal pain, Vomiting, Diarrhea Genitourinary: Denies: Dysuria, Hematuria, Frequency Musculoskeletal: Reports: Swelling. Denies: Neck pain, Back pain, Extremity Pain Skin: Denies: Rash Neurological: Reports: Headache, Weakness, Parasthesia Psych: Reports: Depression Hematologic: Denies: Easy bruising, Easy bleeding Allergy: Denies: Uticaria, Swelling of the mouth STROKE Vital Signs/Narrative: Vital Signs Temp Pulse Resp BP Pulse Ox 01/08/19 09:43 97.4 F L 60 18 156/81 H 99 Inital Vital Signs reviewed: Yes - NIHSS Initial 1a Level of Consciousness: 1 1b LOC Questions (Score 2 if aphasic/stupor): 0 1c LOC Commands (Only score 1st attempt): 0 2 Best Gaze (If aphasic, use reflexive mvmts.): 0 3 Visual: 1 4 Facial Palsy: 0 5 Motor Arm Right (UN = amputation/fusion): 0 5 Motor Arm Left: 3 6 Motor Leg Right: 0 6 Motor Leg Left: 3 7 Limb ataxia (Only + if out of proportion): 0 8 Sensory (Aphasia/stupor=0 or 1, coma=2): 1 9 Best Language: 0 10 Dysarthria (mute, coma=2, intubated=UN): 2 11 Extinction and Inattention (only scored if +): 1 Total Score: 12 General: Well nourished, Well developed, Obese Head: Normocephalic, Atraumatic Eyes: Perrl, EOMI. Negative for: Pale conjunctiva, Scleral icterus ENT: Moist mucous membranes, No rhinorrhea, TM's clear, - - Is midline. There is no angioedema. Neck: Supple, Nontender, No lymphadenopathy, No JVD, - - Trachea is midline. There is no stridor. Cardiovascular: Regular rate, Regular rhythm, No murmurs, Normal S1, Normal S2 Respiratory: No distress, CTA bilaterally, Chest nontender Abdomen: Soft, Nontender, Nondistended, Normal bowel sounds Back: Nontender, Normal Inspection Extremities: Nontender, Edema Skin: Normal color, No rash Neurological: Oriented x3, Cranial nerves II-XII grossly intact, Normal Gait - Patient unable to ambulate without assistance and his gait is broad-based and he has problems with balance.. Negative for: Alert, Normal Strength, Normal Sensation, Normal DTR - The Babinski sign on the left. Psychological: Tearful Diagnostic/Tx/Re-eval Impressions Brain CT 01/08/19 09:55 IMPRESSION: Chronic involutional changes of the brain. Stable appearance. Electronically Signed: Shai Mcclendon MD at 11:22 EST , Service support , Chest X-Ray 01/08/19 10:20 IMPRESSION: Stable cardiac enlargement. No focal infiltrate. Electronically Signed: Shai Mcclendon MD at 10:57 EST , Service support , 01/08/19 09:55 Brain/Head without Contrast [CT] Stat 01/08/19 10:20 Chest 1 View [RAD] Stat Laboratory Results 01/08/19 01/08/19 01/08/19 10:04 10:04 10:04 WBC 4.7 RBC 4.27 L Hgb 14.0 Hct 41.8 MCV 97.9 H MCH 32.8 H MCHC 33.5 RDW Std Deviation 50.2 H RDW Coeff of Cinda 14.1 Plt Count 154 MPV 10.0 Immature Gran % (Auto) 0.200 Neut % (Auto) 65.9 Lymph % (Auto) 24.2 [place] % (Auto) 7.0 Eos % (Auto) 2.3 Baso % (Auto) 0.4 Absolute Neuts (auto) 3.1 Absolute Lymphs (auto) 1.14 Nucleated RBC % 0 PT 14.2 INR 1.1 APTT 36.6 H Sodium 142 Potassium 3.9 Chloride 107 Carbon Dioxide 31.0 Anion Gap 4 L BUN 26 H Creatinine 0.82 Estim Creat Clear Calc 89.02 Est GFR (MDRD) Af Amer 119 Est GFR (MDRD) Non-Af 99 BUN/Creatinine Ratio 31.6 H Glucose 154 H Calcium 8.6 Troponin I < 0.015 POC Glucose 01/08/19 10:25 WBC RBC Hgb Hct MCV MCH MCHC RDW Std Deviation RDW Coeff of Cinda Plt Count MPV Immature Gran % (Auto) Neut % (Auto) Lymph % (Auto) [place] % (Auto) Eos % (Auto) Baso % (Auto) Absolute Neuts (auto) Absolute Lymphs (auto) Nucleated RBC % PT INR APTT Sodium Potassium Chloride Carbon Dioxide Anion Gap BUN Creatinine Estim Creat Clear Calc Est GFR (MDRD) Af Amer Est GFR (MDRD) Non-Af BUN/Creatinine Ratio Glucose Calcium Troponin I POC Glucose 138 H Laboratory results are unremarkable. CT reveals no acute stroke. Chest x-ray is unchanged. I was informed at 1128 the patient complained of pain. He still is unable to speak. He points to his chest. EKG was ordered and will treat with nitroglycerin. wishes that he does not receive morphine because he has a problem with morphine. Spoke with hospitalist at [facility]. He has accepted patient. Patient to be admitted to the stepdown unit. Chest X-Ray - ED: 1 View, Normal, Bony Structures, No Acute Disease, Chronic Changes, - - Chest x-ray is unchanged from December 03, 2018. Pacemaker is noted. There is increased interstitial markings on the left which were noted on the x-ray obtained December 03. - EKG Initial EKG Interpretation: - - Atrial paced rhythm with a ventricular rate of 60. WY duration 230 ms, which is prolonged. QRS duration 120 ms. QT duration 470 ms. [place] is normal. There is an ossific intraventricular conduction delay with no ossific ST-T wave changes noted. Will need old for comparison. Follow-up EKG Interpretation: - - Atrial paced rhythm with prolonged AV conduction. WY interval is 256 ms. QS duration 122 ms. QT duration 472 ms. There is slightly more pronounced ST change in V2 compared to prior. This was obtained with pain. - Medical Decision Making Stroke Team Activated: No Reviewed Inclusion/Exclusion criteria: Yes Was Patient considered for Endovascular Intervention?: No IV Alteplase (t-PA) Administered: No No contraindications for IV Alteplase (t-PA) administration.: No Alteplase (t-PA) risks, benefits, alternative discussed: No She presents with 2 concerning symptoms 1 chest pain which he has taken 3 nitroglycerin for. Will obtain cardiac work-up and because of the significant weakness on the left side difficulty ambulating concern he may have had a stroke first noted by on . This may also represent a conversion reaction since his sister on Thursday. However with his multiple risk factors prior stroke will obtain CAT scan initiate stroke order sets. Also will obtain EKG and troponin. PA was called after evaluation. [facility] We were told we need to be more patient. They could not give us a time when they were no decision or if they even had a bed available. was made aware. She requested [facility]. Spoke with transfer nurse. Awaiting callback. Critical care time (excluding procedures): 30-74 minutes - Care time 35 minutes. This included discussion with patient, family and discuss decision regarding transfer to outside facility since [place] was not able to verify whether they did or do not have a bed on 2 separate occasions. Discussion with hospitalist at outside facility. Facilitating transfer to outside hospital. ED Disposition - Plan for ED Patient: Disposition: Acute Care Hospital - Other Diagnosis: Chest pain, CVA (cerebral vascular accident), Hyperglycemia due to type 2 diabetes mellitus Diagnosis: (Ruled Out): Hypertension, Hyperlipidemia [facility] -
--- NOTE | 2019-01-08 10:08 | ED.RN ---
SPOKE WITH TRE AT [facility]; EXPLAINED PATIENT IS A POSSIBLE STROKE; GAVE HER PTS INFORMATION THAT SHE REQUESTED AND SHE STATED THAT SOMEONE WILL BE CALLING US BACK. I ASKED HER IF SHE HAD AN ESTIMATED TIME THAT SOMEONE WOULD CALL BACK AND SHE STATED ABSOLUTELY NOT I THEN ASKED HER IF SHE COULD TELL ME IF THERE WERE ANY OPEN BEDS, SHE AGAIN STATED ABSOLUTELY NOT
[2019-01-08 10:14] LABS: Absolute Lymphocyte Count 1.14 X10^3/uL (0.83-4.51); Absolute Neutrophil Count 3.1 X10^3/uL (2.0-7.7); Basophil# 0.02 X10^3/uL; Basophil% 0.4 % (0-1); Eosinophil# 0.11 X10^3/uL; Eosinophils% 2.3 % (0-5); Hematocrit 41.8 % (40-54); Lymphocyte # 1.14 X10^3/ul (4.0); Lymphocyte % 24.2 % (19-41); Mean Corp Hgb Conc 33.5 g/dL (32-36); Mean Corpuscular Hgb 32.8 pg (27.0-32.0); Mean Corpuscular Volume 97.9 fL (80-94); Monocyte# 0.33 X10^3/uL; NRBC Flagged by Analyzer 0 % (0-5); Neutrophil # 3.11 X10^3/uL (2.7-7.7); Neutrophil % 65.9 % (47-70); Platelet Count 154 K/mm3 (150-450); RBC Distribution Width CV 14.1 % (11.6-14.6); RBC Distribution Width SD 50.2 fl (35.1-43.9); Red Blood Count 4.27 M/mm3 (4.6-6.2); White Blood Count 4.7 K/mm3 (4.4-11.0)
[2019-01-08 10:18] LABS: International Normalized Ratio 1.1; Prothrombin Time (Protime)PT. 14.2 SECONDS (11.7-14.9)
[2019-01-08 10:19] LABS: Partial Thromboplast Time 36.6 Seconds (24.1-36.2)
--- NOTE | 2019-01-08 10:20 | RAD_ITS ---
STUDY: X-RAY CHEST REASON FOR EXAM: Male, 68 years old. Shortness of breath. Difficulty swallowing. TECHNIQUE: Single AP portable view of the chest. COMPARISON: December 03, 2018. FINDINGS: Pacemaker device on the left is stable. There are interstitial fibrotic changes of the lungs. There is no demonstrated pleural abnormality. Sternal cerclage wires are present from a prior sternotomy. There is stable cardiac enlargement. Normal mediastinum and cata. Normal visualized pulmonary arteries. Normal visualized aortic arch and descending thoracic aorta. Normal visualized thoracic spine. Normal visualized ribs, clavicles, and shoulders. There is no demonstrated abnormality of the visualized soft tissue structures of the upper abdomen. RAD/Chest 1 View IMPRESSION: Stable cardiac enlargement. No focal infiltrate. Electronically Signed: Shai Mcclendon MD at 10:57 EST , Service support ,
[2019-01-08 10:27] LABS: Anion Gap 4 (5-15); BUN 26 mg/dL (7-18); BUN/Creat Ratio 31.6 RATIO (10-20); Calcium,Total 8.6 mg/dL (8.5-10.1); Chloride 107 mmol/L (98-107); Creatinine, Serum 0.82 mg/dL (0.70-1.30); EST Glomerular Filtration Rate 99 mL/min (>60); Est Glom Filt Rate - Afr Amer 119 mL/min (>60); Estimated Creatinine Clearance 89.02 ml/min; Glucose 154 mg/dL (74-106); Potassium 3.9 mmol/L (3.5-5.1); Sodium Level 142 mmol/L (136-145)
[2019-01-08 10:31] LABS: Bedside Glucose 138 mg/dL (70-110)
--- NOTE | 2019-01-08 11:30 | EKG12_ITS ---
Test Reason : REPEAT FOR CP Blood Pressure : / mmHG Vent. Rate : 060 BPM Atrial Rate : 060 BPM P-R Int : 256 ms QRS Dur : 122 ms QT Int : 472 ms P-R-T Axes : 000 -25 101 degrees QTc Int : 472 ms Atrial-paced rhythm with prolonged AV conduction Non-specific intra-ventricular conduction delay Nonspecific ST and T wave abnormality Abnormal ECG Confirmed by PADILLA GUALLPA, CALI ([id number]), managing editor ALBANIA GREENE ([id number]) on 01/11/2019 10:01:04 AM Referred By: OSMAN Confirmed By:CALI CAUSEY MD
--- NOTE | 2019-01-08 11:39 | ED.RN ---
PER DR ORTEGA REQUEST RECONTACTED [facility]. SPOKE WITH TRE AGAIN REGARDING AN UPDATE; VERY RUDE AND STATED THAT SHE HAS NO NEW INFORMATION AND WE JUST NEED TO BE PATIENT AND GIVE THEM TIME
[2019-01-08] MEDS: Nitroglycerin SL (ED/IMG/CATH) 0.4 MG TABLET SUBLINGUAL (11:51)
[2019-01-08] MEDS: Acetaminophen 325 MG Tablet 650 MG PO (14:02)
--- NOTE | 2019-01-08 14:19 | ED.RN ---
REPORT TO [facility]. PT SKIN P/W/D, RESP EVEN AND UNLABORED, PT A&O X 3, NO DISTRESS NOTED. PT OUT OF ED [facility] FOR TRANSPORT TO [facility].
== END 2019-01-08 14:20 | disposition short-term general hospital (02) ==
PROVIDERS: Emergency Provider Emergency Medicine
DX: R07.9 Chest pain, unspecified (principal); E11.65 Type 2 diabetes mellitus with hyperglycemia; Z86.73 Personal history of transient ischemic attack (TIA), and cerebral infarction without residual deficits; E66.9 Obesity, unspecified; E78.5 Hyperlipidemia, unspecified; G47.33 Obstructive sleep apnea (adult) (pediatric); I10 Essential (primary) hypertension; I25.10 Atherosclerotic heart disease of native coronary artery without angina pectoris; Z82.49 Family history of ischemic heart disease and other diseases of the circulatory system; Z88.8 Allergy status to other drugs, medicaments and biological substances; Z95.0 Presence of cardiac pacemaker; Z95.1 Presence of aortocoronary bypass graft; J96.10 Chronic respiratory failure, unspecified whether with hypoxia or hypercapnia
CPT/HCPCS: 70450; 71045; 80048; 82962; 84484; 85025; 85610; 85730; 93005; 99285; A4216

== ENCOUNTER 2019-03-11 14:26 | Observation (INO) | payer OTHER, SELFPAY ==
[2019-01-08 09:43] VITALS: BMI 37.4
[2019-03-11] VITALS (10 sets, daily range): BP systolic 127–155; BP diastolic 57–81; PULSE 60–74; RESP 12–20; TEMP 36.5–36.6; O2SAT 94–100; BMI 35.8; BMI 36.5
--- NOTE | 2019-03-11 15:11 | RAD_ITS ---
STUDY: X-RAY CHEST REASON FOR EXAM: Male, 68 years old. Chest pain and SOB TECHNIQUE: Single AP portable view of the chest. COMPARISON: Comparison is made with prior study January 08, 2019. FINDINGS: EKG electrodes are seen. Mild degree of vascular congestion. Stable increased markings in the lingular segment of the left upper lobe suggestive of scarring. There is no demonstrated pleural abnormality. Sternal cerclage wires and vascular clips are present from a prior sternotomy and coronary artery bypass graft procedure (CABG). A left-sided dual-chamber pacemaker is seen. Normal mediastinum and cata. Normal visualized pulmonary arteries. Normal visualized aortic arch and descending thoracic aorta. There are diffuse degenerative changes of the visualized thoracic spine. There is degenerative osteoarthritis of the bilateral shoulders. There is no demonstrated abnormality of the visualized soft tissue structures of the upper abdomen. RAD/Chest 1 View (Portable) IMPRESSION: Vascular congestion and a mild degree of CHF. Electronically Signed: Mick García, at 15:28 EST , Service support ,
--- NOTE | 2019-03-11 15:12 | EKG12_ITS ---
Test Reason : CP Blood Pressure : / mmHG Vent. Rate : 063 BPM Atrial Rate : 063 BPM P-R Int : 172 ms QRS Dur : 122 ms QT Int : 450 ms P-R-T Axes : 083 -43 081 degrees QTc Int : 460 ms Suspect unspecified pacemaker failure Normal sinus rhythm Left axis deviation Non-specific intra-ventricular conduction delay Abnormal ECG Confirmed by PADILLA GUALLPA, CALI ([id number]), restaurant expeditor ALBANIA GREENE ([id number]) on 03/14/2019 12:11:42 PM Referred By: CHITRA Confirmed By:CALI CAUSEY MD
--- NOTE | 2019-03-11 15:13 | ED.DCSUM_ITS ---
History of Present Illness Chief Complaint: Chest Pain Informant: Patient, Family Onset: Yesterday Narrative: Waxing waning chest pain rating across his chest since yesterday. Denies nausea vomiting. States been having intermittent symptoms past 2 days. Pain currently worsens 8 out of 10. States sharp in nature. History of CABG in 2006. He is followed by [facility]. Has a pacemaker. Takes aspirin Plavix and taken this morning. No other anticoagulants. States he was cathed at this hospital last year with no intervention. History of hypertension, hypercholesterolemia, hyperlipidemia. Remote tobacco, states family history of MIs at a young age. Reports at times due to chest pains will have syncopal episodes. This been going on for years. Reports was a [facility] and was admitted for this similar a week ago, states no stress test performed. He reports he was told that he would have no further stress test. His shared services and outsourcing manager at [facility] is Dr. Scanlon. Significant other states when he gets morphine for his pains, symptoms were improved. States with chest pains he would have speech issues that resolved with pain control. No headache or hemiparesis. Prior similar symptoms: Yes Past Medical History - Allergies and Home Meds Allergies/Adverse Reactions: Allergies ezetimibe Allergy (Verified 03/11/19 14:27) Unknown Fish Containing Products Allergy (Verified 03/11/19 14:27) Unknown glyburide Allergy (Verified 03/11/19 14:27) Unknown lisinopril Allergy (Verified 03/11/19 14:27) Unknown metformin Allergy (Verified 03/11/19 14:27) Nausea metoprolol Allergy (Verified 03/11/19 14:27) Unknown simvastatin Allergy (Verified 03/11/19 14:27) Unknown Primary Care Physician: [facility] [Primary Care Provider] - Past Medical History: - - Coronary disease, hypertension, hyperlipidemia, diabetes, chronic respiratory failure on oxygen 3 L, obesity, seizures Surgical History: angioplasty, coronary bypass surgery, pacemaker implantation, - - cabg,cholecystectemy, hernia, left knee, 4 stents Smoking Status: Former smoker - Family History Maternal Family History: Reports: Heart Disease Paternal Family History: Reports: - - Patient does not know his paternal family history. Review of Systems General: Denies: Chills, Fever, Sweats Eyes: Denies: Visual changes - bilaterally, Diplopia ENT: Denies: Rhinorrhea, Sore throat Cardiovascular: Reports: Chest pain. Denies: Palpitations Respiratory: Denies: Dyspnea, Cough, Dyspnea on exertion Gastrointestinal: Denies: Abdominal pain, Nausea, Vomiting, Diarrhea, Melena, Hematochezia Genitourinary: Denies: Dysuria, Hematuria, Frequency Musculoskeletal: Denies: Back pain, Extremity Pain Skin: Denies: Rash, Wounds Neurological: Denies: Headache, Weakness, Numbness Physical Exam Vital Signs/Narrative: Vital Signs Temp Pulse Resp BP Pulse Ox 03/11/19 14:48 60 20 H 148/72 H 98 03/11/19 14:30 97.7 F L 72 20 H 127/81 H 94 Inital Vital Signs reviewed: Yes General: Well nourished, Well developed, No Acute Distress Head: Normocephalic, Atraumatic Eyes: Perrl, EOMI ENT: Moist mucous membranes, No rhinorrhea Neck: Supple, Nontender Cardiovascular: Regular rate, Regular rhythm, No murmurs, - - Midline chest scar, left upper chest pacemaker. Respiratory: No distress, CTA bilaterally, Chest nontender Abdomen: Soft, Nontender, Nondistended, Normal bowel sounds Back: Nontender, Normal Inspection Extremities: Nontender, No edema Skin: Normal color, No rash Neurological: Alert, Oriented x3, Cranial nerves II-XII grossly intact, Normal Strength, Normal Sensation Psychological: Normal affect, Normal Mood Diagnostic/Tx/Re-eval Clinical Impression(s) from Imaging Studies Chest X-Ray 03/11/19 15:11 IMPRESSION: Vascular congestion and a mild degree of CHF. Electronically Signed: Mick García, at 15:28 EST , Service support , Abnormal Lab Results 03/11/19 03/11/19 03/11/19 14:46 14:46 14:46 WBC 6.0 RBC 4.26 L Hgb 13.9 Hct 42.1 MCV 98.8 H MCH 32.6 H MCHC 33.0 RDW Std Deviation 49.2 H RDW Coeff of Cinda 13.7 Plt Count 158 MPV 10.8 Immature Gran % (Auto) 0.300 Neut % (Auto) 77.2 H Lymph % (Auto) 14.8 L [place] % (Auto) 6.0 Eos % (Auto) 1.5 Baso % (Auto) 0.2 Absolute Neuts (auto) 4.6 Absolute Lymphs (auto) 0.89 Nucleated RBC % 0 PT 14.4 INR 1.1 APTT 36.9 H Sodium 140 Potassium 4.0 Chloride 103 Carbon Dioxide 33.0 H Anion Gap 4 L BUN 22 H Creatinine 1.34 H Estim Creat Clear Calc 54.48 Est GFR (MDRD) Af Amer 68 Est GFR (MDRD) Non-Af 56 L BUN/Creatinine Ratio 16.4 Glucose 210 H Calcium 8.3 L Troponin I < 0.015 - EKG Initial EKG Interpretation: Sinus Rhythm - Sinus rate of 63, no ST changes. - Medical Decision Making Patient poor historian, with his history cardiac work-up initiated. He took his aspirin and Plavix this morning. EKG shows no acute changes. Labs normal troponin his creatinine 1.34 slightly elevated from 0.8 from a year ago. Denies any vomiting or diarrhea. Was given morphine for symptoms. Reevaluate state symptoms improving. With his reported history stated had a cath a year ago here, check records there is no cath report in the last 2 years. I was able to evaluate clinisync from [place] admission a week ago, there was a cardiology consult and clearance there is no testing performed. Patient heart score is a 4. [facility], reports with observations he can stay here. I spoke with hospitalist team for admission. ED Disposition - Plan for ED Patient: [facility] Diagnosis: Chest pain, CONI (acute kidney injury) [facility] [[facility] -
--- NOTE | 2019-03-11 15:37 | ED.RN ---
CALLED [facility] TOLD HE WOULD BE A TRANSFER
[2019-03-11 15:44] LABS: Absolute Lymphocyte Count 0.89 X10^3/uL (0.83-4.51); Absolute Neutrophil Count 4.6 X10^3/uL (2.0-7.7); Basophil# 0.01 X10^3/uL; Basophil% 0.2 % (0-1); Eosinophil# 0.09 X10^3/uL; Eosinophils% 1.5 % (0-5); Hematocrit 42.1 % (40-54); Hemoglobin 13.9 g/dL (13.0-16.5); Lymphocyte # 0.89 X10^3/ul (4.0); Lymphocyte % 14.8 % (19-41); Mean Corpuscular Hgb 32.6 pg (27.0-32.0); Mean Corpuscular Volume 98.8 fL (80-94); Mean Platelet Vol. 10.8 fl (6.2-12.0); Monocyte# 0.36 X10^3/uL; NRBC Flagged by Analyzer 0 % (0-5); Neutrophil # 4.63 X10^3/uL (2.7-7.7); Neutrophil % 77.2 % (47-70); Platelet Count 158 K/mm3 (150-450); RBC Distribution Width CV 13.7 % (11.6-14.6); RBC Distribution Width SD 49.2 fl (35.1-43.9); Red Blood Count 4.26 M/mm3 (4.6-6.2)
[2019-03-11] MEDS: Morphine 4 MG/ML Syringe IV (15:50)
[2019-03-11 15:58] LABS: Anion Gap 4 (5-15); BUN 22 mg/dL (7-18); BUN/Creat Ratio 16.4 RATIO (10-20); Calcium,Total 8.3 mg/dL (8.5-10.1); Chloride 103 mmol/L (98-107); Creatinine, Serum 1.34 mg/dL (0.70-1.30); EST Glomerular Filtration Rate 56 mL/min (>60); Est Glom Filt Rate - Afr Amer 68 mL/min (>60); Estimated Creatinine Clearance 54.48 ml/min; Glucose 210 mg/dL (74-106); Sodium Level 140 mmol/L (136-145)
--- NOTE | 2019-03-11 16:12 | ED.RN ---
P[facility]O CALLED BACK ADRIEN.
[2019-03-11 16:23] LABS: International Normalized Ratio 1.1; Prothrombin Time (Protime)PT. 14.4 SECONDS (11.7-14.9)
[2019-03-11 16:25] LABS: Partial Thromboplast Time 36.9 Seconds (24.1-36.2)
--- NOTE | 2019-03-11 17:02 | PCM.HP.STD ---
Problem List (1) Chest pain Status: Acute Qualifiers: Chest pain type: unspecified Qualified Code(s): R07.9 - Chest pain, unspecified (2) CAD (coronary artery disease) Status: Chronic Qualifiers: Coronary Disease-Associated Artery/Lesion type: [place] artery [place] vs. transplanted heart: [place] heart Associated angina: without angina Qualified Code(s): I25.10 - Atherosclerotic heart disease of [place] coronary artery without angina pectoris Comment: Cardiac catheterization 02/24/2017?normal LV size should not, EF 55%, [place] multivessel CAD, patent SVG to diagonal 1, OM 2, and RCA, MASON to LAD previously reported as atretic/nonfunctional (not reevaluated at that time), advised medical therapy (3) CVA (cerebral vascular accident) Status: Chronic Qualifiers: CVA mechanism: unspecified Comment: Residual left-sided weakness (4) Chronic respiratory failure Status: Chronic Qualifiers: Comment: baseline 3L continuously (5) DM type 2 (diabetes mellitus, type 2) Status: Chronic Qualifiers: Diabetes mellitus longterm insulin use: with terminal make up operator use Diabetes mellitus complication status: with unspecified complications (6) Hyperlipidemia Status: Chronic Qualifiers: Hyperlipidemia type: unspecified Qualified Code(s): E78.5 - Hyperlipidemia, unspecified (7) Hypertension Status: Chronic Qualifiers: Hypertension type: essential hypertension Qualified Code(s): I10 - Essential (primary) hypertension (8) Obstructive sleep apnea Status: Chronic (9) EKATERINA (obstructive sleep apnea) Status: Chronic History of Present Illness Date of Admission: 03/11/19 Chief Complaint: chest pain The patient is a 68 year old M with past medical history of CAD with prior CABG in 2006, history of obstructive sleep apnea, chronic hypoxic respiratory failure, history of pacemaker (he is not sure why he has the pacemaker), history of CVA, hypertension, hyperlipidemia, obesity, who presented to the emergency room with complaints of chest pain. This began 2 days prior. He describes it as a constant 8 out of 10 stabbing pain that feels like a knife going across his chest from left to right. He does have some radiation into the left arm and some associated shortness of breath when it comes on. He also had this last week and presented to [facility]. He was given morphine and sent home. At the current time he still has some chest pain describes it as a 4 to 5 out of 10 which improved after receiving morphine. He cannot identify any aggravating or alleviating activities. He follows normally with cardiology at the [facility]. He did have a stress test here in June 2017 which was negative for ischemia at that time. [] Past Medical History Past Medical History (Chronic Problems): Chronic Problems EKATERINA (obstructive sleep apnea) (Chronic) Left-sided weakness (Chronic) Hyperlipidemia (Chronic) Hypertension (Chronic) Obesity (Chronic) Pacemaker (Chronic) 2001 Chronic respiratory failure (Chronic) baseline 3L continuously CAD (coronary artery disease) (Chronic) Cardiac catheterization 02/24/2017?normal LV size should not, EF 55%, [place] multivessel CAD, patent SVG to diagonal 1, OM 2, and RCA, MASON to LAD previously reported as atretic/nonfunctional (not reevaluated at that time), advised medical therapy DM type 2 (diabetes mellitus, type 2) (Chronic) Obstructive sleep apnea (Chronic) Seizure (Chronic) Aphasia (Chronic) S/P CABG (coronary artery bypass graft) (Chronic) S/P PTCA (percutaneous transluminal coronary angioplasty) (Chronic) CVA (cerebral vascular accident) (Chronic) Residual left-sided weakness Allergies ezetimibe Allergy (Verified 03/11/19 14:27) Unknown Fish Containing Products Allergy (Verified 03/11/19 14:27) Unknown glyburide Allergy (Verified 03/11/19 14:27) Unknown lisinopril Allergy (Verified 03/11/19 14:27) Unknown metformin Allergy (Verified 03/11/19 14:27) Nausea metoprolol Allergy (Verified 03/11/19 14:27) Unknown simvastatin Allergy (Verified 03/11/19 14:27) Unknown Home Medications: Ambulatory Orders Medication Instructions Recorded Aspirin E.C. [Ecotrin] 81 mg PO DAILY@0800 06/11/18 Atenolol [Tenormin] 100 mg PO DAILY 06/11/18 Atorvastatin Calcium [Lipitor] 80 mg PO QHS 06/11/18 Cholecalciferol (VIT D3) [Vitamin 3 tab PO DAILY 06/11/18 D3] Clopidogrel Bisulfate [Clopidogrel] 75 mg PO DAILY 06/11/18 Escitalopram Oxalate [Lexapro] 10 mg PO DAILY 06/11/18 Finasteride [Proscar] 5 mg PO DAILY 06/11/18 Furosemide [Lasix] 20 mg PO DAILY 06/11/18 Insulin Regular, Human [Humulin R 110 unit SQ LUNCH 06/11/18 U-500 Kwikpen] Insulin Regular, Human [Humulin R 165 unit SQ BREAKFAST 06/11/18 U-500 Kwikpen] Insulin Regular, Human [Humulin R 165 unit SQ DINNER 06/11/18 U-500 Kwikpen] Multivitamins,Ther W-Minerals 1 tablet PO DAILY 06/11/18 [Multivitamin With Minerals] Pantoprazole Sodium 40 mg PO BID 06/11/18 Ranolazine [Ranexa] 1,000 mg PO BID 06/11/18 Tamsulosin HCl [Flomax] 0.8 mg PO QHS 06/11/18 Acetaminophen [Tylenol Tablet] 650 mg PO Q6H PRN PRN tablet 06/21/18 Levetiracetam [Keppra] 500 mg PO BID 07/20/18 Nitroglycerin (INPATIENT USE) 0.4 mg SUBLINGUAL Q5M PRN #30 07/22/18 [Nitrostat] tablet Amlodipine [Norvasc] 5 mg PO DAILY 09/11/18 Carvedilol [Coreg] 12.5 mg PO BID 12/03/18 Isosorbide Mononitrate [Imdur] 30 mg PO DAILY 12/03/18 Lidocaine [Lidoderm Patch] 1 patch TOPICAL DAILY PRN #10 patch 12/03/18 Tiotropium [place] [Spiriva 4 gm IH DAILY 12/03/18 Respimat] Surgical History: angioplasty, coronary bypass surgery, pacemaker implantation, - - cabg,cholecystectemy, hernia, left knee, 4 stents Psychiatric History: Depression Lives: Spouse/ Significant Other Smoking Status: Former smoker Tobacco Use: Non-smoker Alcohol: None Drugs: None - *Family History Maternal History Items: Heart Disease Paternal History Items: - - Patient does not know his paternal family history. Review of Systems Constitutional: Denies: Chills, Fever, Weight Change HEENT: Denies: Head Aches, Sinus Congestion, Sinus Drainage Cardiovascular: Reports: Chest Pain. Denies: Heaviness, Light Headedness, Palpitations, Syncope Respiratory: Reports: Shortness of Breath. Denies: Cough, Shortness of breath at rest, Sputum production Gastrointestinal: Denies: Abdominal Pain, Nausea, Vomiting Genitourinary: Denies: Dysuria Musculoskeletal: Denies: Joint Pain, Joint Tenderness Skin: Denies: Rash, Wounds Neurological: Denies: Numbness, Tingling, Focal weakness Psychiatric: Denies: Anxiety, Depression, Homicidal Ideations, Suicidal Ideations Hematologic/ Lymphatic: Denies: Easy Bruising, Easy Bleeding VTE Information - Inpt Only VTE Present on Admission: No VTE Mechan Device Prophylaxis: None VTE Pharm Prophylaxis ordered?: Yes Patient Problems: Active and Suspected Problems Chest pain (Acute) CONI (acute kidney injury) (Acute) - Physical Exam Vitals/I&O's: Vital Signs Temp Pulse Resp BP Pulse Ox 97.7 F L 61 18 148/79 H 96 03/11/19 14:30 03/11/19 16:42 03/11/19 16:42 03/11/19 16:42 03/11/19 16:42 Oxygen Flow Rate (L/min) 4 Oxygen Delivery Method Nasal Cannula Weight: 249 lb 9.012 oz Body Mass Index (BMI) 35.8 Finger Stick Blood Glucose 138 General: Alert, Oriented x3, Cooperative HEENT: Atraumatic, PERRLA, EOMI, Normocephalic Neck: Supple, No JVD, Negative Carotid Bruits Lungs: Clear to auscultation, Normal air movement Cardiovascular: Regular rate, No murmurs Abdomen: Bowel Sounds Present, Soft, Non Tender, Obese Extremities: No edema, Capillary Refill Less than 3 Seconds Skin: No rashes, No breakdown Musculoskeletal: No Tenderness to Palpation of Joints or Extremities Neurological: Cranial nerves II-XII grossly intact Psych/Mental Status: Normal Affect, Appropriate, Alert and oriented to time, place, person, mood and affect Laboratory Results 03/11/19 14:46: WBC 6.0, RBC 4.26 L, Hgb 13.9, Hct 42.1, MCV 98.8 H, MCH 32.6 H, MCHC 33.0, RDW Std Deviation 49.2 H, RDW Coeff of Cinda 13.7, Plt Count 158, MPV 10.8, Immature Gran % (Auto) 0.300, Neut % (Auto) 77.2 H, Lymph % (Auto) 14.8 L, [place] % (Auto) 6.0, Eos % (Auto) 1.5, Baso % (Auto) 0.2, Absolute Neuts (auto) 4.6, Absolute Lymphs (auto) 0.89, Nucleated RBC % 0 03/11/19 14:46: Sodium 140, Potassium 4.0, Chloride 103, Carbon Dioxide 33.0 H, Anion Gap 4 L, BUN 22 H, Creatinine 1.34 H, Estim Creat Clear Calc 54.48, Est GFR (MDRD) Af Amer 68, Est GFR (MDRD) Non-Af 56 L, BUN/Creatinine Ratio 16.4, Glucose 210 H, Calcium 8.3 L, Troponin I < 0.015 03/11/19 14:46: PT 14.4, INR 1.1, APTT 36.9 H Assessment/Plan All Active Problems Chest pain (Acute) CONI (acute kidney injury) (Acute) Abnormal EKG (Acute) Chest wall contusion (Acute) Atypical chest pain (Acute) 1. Chest pain-in the setting of CAD with prior CABG-EKG negative, troponin negative, chest x-ray consistent with some congestive heart failure. Patient will be admitted to the PCU and placed on telemetry, we will cycle enzymes, obtain stress test in the morning. Continue aspirin, atenolol, Norvasc, atorvastatin, Coreg, Plavix, Lasix, Imdur, Ranexa 2. History of pacemaker-it is unclear why he has a pacemaker. [facility]. 3. Obstructive sleep apnea-continue BiPAP nightly 4. Type 2 diabetes-continue home insulin plus sliding scale 5. History of seizure-continue Keppra 6. BPH-continue Flomax DVT prophylaxis: Heparin This patient was seen by Sridhar Mullins PA-C under the supervision of Doctor Crowe.
--- NOTE | 2019-03-11 17:32 | EKG12_ITS ---
Test Reason : Blood Pressure : / mmHG Vent. Rate : 060 BPM Atrial Rate : 060 BPM P-R Int : 286 ms QRS Dur : 128 ms QT Int : 480 ms P-R-T Axes : 000 -29 094 degrees QTc Int : 480 ms Atrial-paced rhythm with prolonged AV conduction Non-specific intra-ventricular conduction block Abnormal ECG When compared with ECG of 08-JAN-2019 11:35, T wave inversion no longer evident in Anterior leads Confirmed by PADILLA GUALLPA, CALI ([id number]), sports editor [place]ENE ([id number]) on 03/15/2019 12:32:32 PM Referred By: AMERICA Confirmed By:CALI CAUSEY MD
[2019-03-11 19:35] LABS: BNP,B-Type NATRIURETIC PEPTIDE 33.6 pg/mL (0-100)
[2019-03-11] MEDS: Morphine 2 MG/ML Syringe 1 MG IV (20:05)
[2019-03-11] MEDS: 0.9% Saline Lock 10 ML Syringe IV (20:05)
[2019-03-11] MEDS: Pantoprazole Sodium 40 MG Tablet PO (21:43)
[2019-03-11] MEDS: Carvedilol 12.5 MG Tablet PO (21:43)
[2019-03-11] MEDS: Ranolazine 500 MG Tablet 1000 MG PO (21:44)
[2019-03-11 21:45] LABS: Bedside Glucose 102 mg/dL (70-110)
[2019-03-11] MEDS: levETIRAcetam 500 MG Tablet PO (21:45)
[2019-03-11] MEDS: Tamsulosin HCl 0.4 MG Capsule 0.8 MG PO (21:45)
[2019-03-11] MEDS: Atorvastatin Calcium 80 MG Tablet PO (21:45)
[2019-03-11] MEDS: guaiFENesin 10 ML UDC (200MG/10ML) PO (21:50)
[2019-03-12] VITALS (10 sets, daily range): BP systolic 102–135; BP diastolic 44–71; PULSE 60–66; RESP 12–18; TEMP 36.3–36.4; O2SAT 95–97
[2019-03-12] MEDS: Morphine 2 MG/ML Syringe 1 MG IV ×2 (00:35→03:54)
[2019-03-12] MEDS: 0.9% Saline Lock 10 ML Syringe IV ×2 (00:35→03:54)
--- NOTE | 2019-03-12 05:55 | EKG12_ITS ---
Test Reason : AM EKG Blood Pressure : / mmHG Vent. Rate : 060 BPM Atrial Rate : 060 BPM P-R Int : 286 ms QRS Dur : 128 ms QT Int : 330 ms P-R-T Axes : 000 -32 097 degrees QTc Int : 330 ms Atrial-paced rhythm with prolonged AV conduction Left axis deviation Non-specific intra-ventricular conduction block Nonspecific T wave abnormality Abnormal ECG When compared with ECG of 11-MAR-2019 17:27, MANUAL COMPARISON REQUIRED, DATA IS UNCONFIRMED Confirmed by PADILLA GUALLPA, CALI ([id number]), managing editor [place] ([id number]) on 03/15/2019 12:18:22 PM Referred By: AMERICA Confirmed By:CALI CAUSEY MD
[2019-03-12] MEDS: Clopidogrel Bisulfate 75 MG Tablet PO (06:17)
[2019-03-12] MEDS: Aspirin E.C. 81 MG Tablet PO (06:17)
[2019-03-12 06:40] LABS: Bedside Glucose 140 mg/dL (70-110)
[2019-03-12] MEDS: Ipratropium 0.5 MG/2.5 ML SOLUTION INHALATION (06:58)
[2019-03-12 07:16] LABS: Anion Gap 6 (5-15); BUN 21 mg/dL (7-18); BUN/Creat Ratio 23.3 RATIO (10-20); Chloride 105 mmol/L (98-107); Cholesterol 93 mg/dL (200); EST Glomerular Filtration Rate 89 mL/min (>60); Est Glom Filt Rate - Afr Amer 107 mL/min (>60); Estimated Creatinine Clearance 81.11 ml/min; Glucose 145 mg/dL (74-106); High Density Lipoprotein 37 mg/dL; Potassium 3.6 mmol/L (3.5-5.1); Sodium Level 140 mmol/L (136-145); Triglycerides 174 mg/dL; Very Low Density Lipoprotein 35 mg/dL (5-40)
--- NOTE | 2019-03-12 10:11 | STRESSREP ---
Stress Test Report Pharmacologic myocardial perfusion stress test. 68-year-old man with previous history of coronary artery disease. Stress protocol: Resting EKG demonstrates normal sinus rhythm with a rate of 60 bpm first-degree AV block. Resting blood pressure is 108/72 mmHg. 0.4 mg of regadenoson was infused per usual protocol followed Intravenous saline flush injection continuous EKG monitoring was performed. The maximum heart rate attained was 73 bpm which was 48% maximum predicted heart rate the maximum workload was 1 metabolic equivalent. At rest nonspecific ST-T wave changes were noted at peak infusion nonspecific ST-T wave changes were noted. The resting blood pressures 180/72 final blood pressure was 124/62. Myocardial perfusion protocol. 15.0 mCi of technetium 99m sestamibi was injected at rest. 0.4 mg of regadenoson was infused per usual protocol peak infusion 45.0 mCi of technetium 99m sestamibi was injected stress images were obtained stress and rest images were reconstructed and compared in the short axis vertical and horizontal long axis. Gated images were also obtained Perfusion SPECT analysis: Review of the stress images demonstrate normal uptake of tracer noted in all areas of the myocardium, except for the inferior wall with reduced perfusion. The resting images similar demonstrate normal uptake of tracer noted in all areas. There is some reduction noted in the inferior wall which is likely GI attenuation artifact. No obvious ischemia is noted. Gated SPECT analysis: The gated ejection fraction is 54%. Conclusion: Pharmacologic myocardial perfusion stress test with no obvious evidence of ischemia. Preserved ejection fraction.
[2019-03-12] MEDS: Ranolazine 500 MG Tablet 1000 MG PO (10:14)
[2019-03-12] MEDS: levETIRAcetam 500 MG Tablet PO (10:14)
[2019-03-12] MEDS: Pantoprazole Sodium 40 MG Tablet PO (10:14)
[2019-03-12] MEDS: Carvedilol 12.5 MG Tablet PO (10:14)
[2019-03-12] MEDS: Escitalopram Oxalate 10 MG Tablet PO (10:15)
[2019-03-12] MEDS: Finasteride 5 MG Tablet PO (10:16)
[2019-03-12 11:30] LABS: Bedside Glucose 207 mg/dL (70-110)
--- NOTE | 2019-03-12 11:31 | DCINST_ITS ---
- Discharge Diagnoses Current Active Problems: Current Active and Chronic Problems (Last Updated 03/12/19 @ 07:25 by Loyda Panda) Chest pain (Acute) CONI (acute kidney injury) (Acute) EKATERINA (obstructive sleep apnea) (Chronic) You will use the following diet at home:: Calorie/Carbohydrate Controlled (specify 1200, 1400, etc) - 1800 naman / day, Cardiac Your food should be the consistency of: Regular Your liquids should be the consistency of: Regular/Thin Discharge Activity: Return to Normal Activity Allergies/Adverse Reactions: Allergies ezetimibe Allergy (Verified 03/11/19 14:27) Unknown Fish Containing Products Allergy (Verified 03/11/19 14:27) Unknown glyburide Allergy (Verified 03/11/19 14:27) Unknown lisinopril Allergy (Verified 03/11/19 14:27) Unknown metformin Allergy (Verified 03/11/19 14:27) Nausea metoprolol Allergy (Verified 03/11/19 14:27) Unknown simvastatin Allergy (Verified 03/11/19 14:27) Unknown Medications to take at Discharge Aspirin E.C. [Ecotrin] 81 mg PO DAILY@0800 06/11/18 Atorvastatin Calcium [Lipitor] 80 mg PO QHS 06/11/18 Cholecalciferol (VIT D3) [Vitamin D3] 3 tab PO DAILY 06/11/18 Clopidogrel Bisulfate [Clopidogrel] 75 mg PO DAILY 06/11/18 Escitalopram Oxalate [Lexapro] 10 mg PO DAILY 06/11/18 Finasteride [Proscar] 5 mg PO DAILY 06/11/18 Furosemide [Lasix] 20 mg PO DAILY 06/11/18 Insulin Regular, Human [Humulin R U-500 Kwikpen] 190 unit SQ BREAKFAST 06/11/18 Insulin Regular, Human [Humulin R U-500 Kwikpen] 190 unit SQ DINNER 06/11/18 Multivitamins,Ther W-Minerals [Multivitamin With Minerals] 1 tablet PO DAILY 06/11/18 Pantoprazole Sodium 40 mg PO BID 06/11/18 Ranolazine [Ranexa] 1,000 mg PO BID 06/11/18 Tamsulosin HCl [Flomax] 0.8 mg PO QHS 06/11/18 Acetaminophen [Tylenol Tablet] 650 mg PO Q6H PRN PRN tablet 06/21/18 Levetiracetam [Keppra] 1,000 mg PO BID 07/20/18 Nitroglycerin (INPATIENT USE) [Nitrostat] 0.4 mg SUBLINGUAL Q5M PRN #30 tablet 07/22/18 Carvedilol [Coreg] 12.5 mg PO BID 12/03/18 [facility] Care Physician: [facility] [Primary Care Provider] - Please follow up with your Primary Care Physician in: 1-2 weeks Test Results: Test results from this visit will be discussed in further detail at your follow- up appointment, if applicable. Please Follow Up With: [facility] When: 3-4 weeks Proposed Discharge Date: 03/12/19
--- NOTE | 2019-03-12 13:36 | PCM.DC.SUM ---
<Sridhar Mullins - Last Filed: 03/12/19 13:36> Discharge Date and Diagnosis Date of Admission: 03/11/19 Date of Discharge: 03/12/19 - Primary Discharge Diagnosis Chest pain-musculoskeletal History of pacemaker History of CAD with prior CABG Struct of sleep apnea compliant with nightly BiPAP Type 2 diabetes History of seizure disorder - Secondary Discharge Diagnosis Chronic Problems (Last Updated 03/12/19 @ 07:25 by Loyda Panda) History of permanent cardiac pacemaker placement (Chronic 09/10/11) 2001 Atherosclerotic heart disease [place] coronary artery w/angina pectoris (Chronic) Cardiac catheterization 02/24/2017?normal LV size should not, EF 55%, [place] multivessel CAD, patent SVG to diagonal 1, OM 2, and RCA, MASON to LAD previously reported as atretic/nonfunctional (not reevaluated at that time), advised medical therapy Essential (primary) hypertension (Chronic) EKATERINA (obstructive sleep apnea) (Chronic) Left-sided weakness (Chronic) Hyperlipidemia (Chronic) Obesity (Chronic) Chronic respiratory failure (Chronic) baseline 3L continuously DM type 2 (diabetes mellitus, type 2) (Chronic) Obstructive sleep apnea (Chronic) Seizure (Chronic) Aphasia (Chronic) CVA (cerebral vascular accident) (Chronic) Residual left-sided weakness Hospital Course and Treatment Imaging Results: 03/12/19 05:55 Nuclear Stress Test - Chemical [NM] AM (NON MEDS) Conclusion: Pharmacologic myocardial perfusion stress test with no obvious evidence of ischemia. Preserved ejection fraction. RAD/Chest 1 View (Portable) IMPRESSION: Vascular congestion and a mild degree of CHF. Operations: None Procedures: Stress test Summary of Care Provided: Hospital course: The patient is a 68 year old M with past medical history of CAD with prior CABG, pacemaker in place, type 2 diabetes, hypertension, hyperlipidemia, prior CVA who presented to the emergency room with complaints of chest pain. This was described as a 8 out of 10 stabbing pain across the left or right side of his chest. He had been at [facility] a week prior for this was given morphine and sent home with no further work-up. The patient had had a negative stress test here at the hospital in June of last year. In the emergency room his EKG was negative, troponin was negative, chest x-ray showed some degree of CHF, however he had no complaints of shortness of breath or lower extremity edema. The patient was admitted for chest pain work-up. Troponin was cycled x3 and remained negative. He had no events on telemetry. He went for stress test the following morning which was negative for ischemia. He is felt to have had musculoskeletal pain. He was discharged home in stable condition. Advised him to follow-up with the [facility] for his PCP in 1 to 2 weeks, as well as with [facility] in 3 to 4 weeks. No medication changes were made at this time. This patient was seen by Sridhar Mullins PA-C under the supervision of Doctor Jensen. [] - Physical Exam Vitals/I&O's: Vital Signs Temp Pulse Resp BP Pulse Ox 97.5 F L 62 16 135/71 H 96 03/12/19 10:12 03/12/19 10:36 03/12/19 10:12 03/12/19 10:12 03/12/19 10:12 Oxygen Flow Rate (L/min) 3 Oxygen Delivery Method Nasal Cannula Weight: 254 lb 6.615 oz Body Mass Index (BMI) 36.5 Finger Stick Blood Glucose 138 Orthostatic Vital Signs Start: 03/12/19 06:27 Freq: X1 Status: Active Protocol: Activity Type Activity Date Activity User E-Sign Co-Sign Detail Recorded Client Recorded Date Recorded By Document 03/12/19 06:[address] [facility] [id number] 03/12/19 06:[address] [facility] 03/12/19 06:27 Orthostatic Vitals Standing -Blood Pressure (90/60-120/80) 102/53 L -Extremity Use Left Arm -Pulse Rate (60-100) 66 Sitting -Blood Pressure (90/60-120/80) 108/57 L -Extremity Use Left Arm -Pulse Rate (60-100) 66 Lying -Blood Pressure (90/60-120/80) 102/44 L -Extremity Use Left Arm -Pulse Rate (60-100) 61 Intake and Output for Last 24 Hours 03/10/19 03/11/19 03/12/19 23:59 23:59 23:59 Output Total 425 / 425 401 / 401 Balance -425 / -425 -401 / -401 General: Alert, Oriented x3, Cooperative HEENT: Atraumatic, PERRLA, EOMI, Normocephalic Neck: Supple, No JVD, Negative Carotid Bruits Lungs: Clear to auscultation, Normal air movement Cardiovascular: Regular rate, No murmurs Abdomen: Bowel Sounds Present, Soft, Non Tender, Obese Extremities: No edema, Capillary Refill Less than 3 Seconds Skin: No rashes, No breakdown Musculoskeletal: No Tenderness to Palpation of Joints or Extremities Neurological: Cranial nerves II-XII grossly intact Psych/Mental Status: Normal Affect, Appropriate, Alert and oriented to time, place, person, mood and affect Laboratory Results 03/11/19 14:46: WBC 6.0, RBC 4.26 L, Hgb 13.9, Hct 42.1, MCV 98.8 H, MCH 32.6 H, MCHC 33.0, RDW Std Deviation 49.2 H, RDW Coeff of Cinda 13.7, Plt Count 158, MPV 10.8, Immature Gran % (Auto) 0.300, Neut % (Auto) 77.2 H, Lymph % (Auto) 14.8 L, [place] % (Auto) 6.0, Eos % (Auto) 1.5, Baso % (Auto) 0.2, Absolute Neuts (auto) 4.6, Absolute Lymphs (auto) 0.89, Nucleated RBC % 0 03/11/19 14:46: Sodium 140, Potassium 4.0, Chloride 103, Carbon Dioxide 33.0 H, Anion Gap 4 L, BUN 22 H, Creatinine 1.34 H, Estim Creat Clear Calc 54.48, Est GFR (MDRD) Af Amer 68, Est GFR (MDRD) Non-Af 56 L, BUN/Creatinine Ratio 16.4, Glucose 210 H, Calcium 8.3 L, Troponin I < 0.015 03/11/19 14:46: PT 14.4, INR 1.1, APTT 36.9 H 03/11/19 14:46: B-Natriuretic Peptide 33.6 03/11/19 17:37: Troponin I < 0.015 03/11/19 21:39: POC Glucose 102 03/12/19 04:00: Urine Creatinine 177.00 03/12/19 05:38: Sodium 140, Potassium 3.6, Chloride 105, Carbon Dioxide 29.0, Anion Gap 6, BUN 21 H, Creatinine 0.90, Estim Creat Clear Calc 81.11, Est GFR (MDRD) Af Amer 107, Est GFR (MDRD) Non-Af 89, BUN/Creatinine Ratio 23.3 H, Glucose 145 H, Calcium 8.0 L, Triglycerides 174, Cholesterol 93, LDL Cholesterol 21, VLDL Cholesterol 35, HDL Cholesterol 37 L 03/12/19 06:19: POC Glucose 140 H 03/12/19 11:26: POC Glucose 207 H Discharge Diet: Low fat/ Low Cholesterol, 1800 Calorie Control Diet, 2000 mg Sodium Diet Discharge Activity: Return to Normal Activity Home Medications: Medications to take at Discharge Aspirin E.C. [Ecotrin] 81 mg PO DAILY@0800 06/11/18 Atorvastatin Calcium [Lipitor] 80 mg PO QHS 06/11/18 Cholecalciferol (VIT D3) [Vitamin D3] 3 tab PO DAILY 06/11/18 Clopidogrel Bisulfate [Clopidogrel] 75 mg PO DAILY 06/11/18 Escitalopram Oxalate [Lexapro] 10 mg PO DAILY 06/11/18 Finasteride [Proscar] 5 mg PO DAILY 06/11/18 Furosemide [Lasix] 20 mg PO DAILY 06/11/18 Insulin Regular, Human [Humulin R U-500 Kwikpen] 190 unit SQ BREAKFAST 06/11/18 Insulin Regular, Human [Humulin R U-500 Kwikpen] 190 unit SQ DINNER 06/11/18 Multivitamins,Ther W-Minerals [Multivitamin With Minerals] 1 tablet PO DAILY 06/11/18 Pantoprazole Sodium 40 mg PO BID 06/11/18 Ranolazine [Ranexa] 1,000 mg PO BID 06/11/18 Tamsulosin HCl [Flomax] 0.8 mg PO QHS 06/11/18 Acetaminophen [Tylenol Tablet] 650 mg PO Q6H PRN PRN tablet 06/21/18 Levetiracetam [Keppra] 1,000 mg PO BID 07/20/18 Nitroglycerin (INPATIENT USE) [Nitrostat] 0.4 mg SUBLINGUAL Q5M PRN #30 tablet 07/22/18 Carvedilol [Coreg] 12.5 mg PO BID 12/03/18 [facility] Care Physician[facility] [Primary [facility] Provider] - Please follow up with your Primary Care Physician in: 1-2 weeks Please Follow Up With: [facility] When: 3-4 weeks Disposition: Home Minutes spent on discharge:: 35 Patient Condition:: Stable Medical Necessity - Tobacco Use Smoking Status: Former smoker Tobacco Use: Non-smoker Meaningful Use Info Meaningful Use Diagnoses (Choose all that apply): None applicable <Cirilo Styles - Last Filed: 03/12/19 13:47> Discharge Date and Diagnosis - Secondary Discharge Diagnosis Chronic Problems (Last Updated 03/12/19 @ 07:25 by Loyda Panda) History of permanent cardiac pacemaker placement (Chronic 09/10/11) 2001 Atherosclerotic heart disease [place] coronary artery w/angina pectoris (Chronic) Cardiac catheterization 02/24/2017?normal LV size should not, EF 55%, [place] multivessel CAD, patent SVG to diagonal 1, OM 2, and RCA, MASON to LAD previously reported as atretic/nonfunctional (not reevaluated at that time), advised medical therapy Essential (primary) hypertension (Chronic) EKATERINA (obstructive sleep apnea) (Chronic) Left-sided weakness (Chronic) Hyperlipidemia (Chronic) Obesity (Chronic) Chronic respiratory failure (Chronic) baseline 3L continuously DM type 2 (diabetes mellitus, type 2) (Chronic) Obstructive sleep apnea (Chronic) Seizure (Chronic) Aphasia (Chronic) CVA (cerebral vascular accident) (Chronic) Residual left-sided weakness Hospital Course and Treatment Imaging Results: 03/12/19 05:55 Nuclear Stress Test - Chemical [NM] AM (NON MEDS) Operations: None Procedures: Stress test Summary of Care Provided: Patient seen and examined independently. Data reviewed. I agree with the above note by the physician patient support assistant. The patient is a 68 year old M patient presents with chest pain. Pain was across his chest and not reproducible. Patient was brought to the hospital here and underwent a stress test that was negative for any cardiac ischemia. [] - Physical Exam Vitals/I&O's: Vital Signs Temp Pulse Resp BP Pulse Ox 36.4 C L 62 16 135/71 H 96 03/12/19 10:12 03/12/19 10:36 03/12/19 10:12 03/12/19 10:12 03/12/19 10:12 Oxygen Flow Rate (L/min) 3 Oxygen Delivery Method Nasal Cannula Weight: 115.4 kg Body Mass Index (BMI) 36.5 Finger Stick Blood Glucose 138 Orthostatic Vital Signs Start: 03/12/19 06:27 Freq: X1 Status: Active Protocol: Activity Type Activity Date Activity User E-Sign Co-Sign Detail Recorded Client Recorded Date Recorded By Document 03/12/19 06:[address] [facility] [id number] 03/12/19 06:[address] [facility] 03/12/19 06:27 Orthostatic Vitals Standing -Blood Pressure (90/60-120/80) 102/53 L -Extremity Use Left Arm -Pulse Rate (60-100) 66 Sitting -Blood Pressure (90/60-120/80) 108/57 L -Extremity Use Left Arm -Pulse Rate (60-100) 66 Lying -Blood Pressure (90/60-120/80) 102/44 L -Extremity Use Left Arm -Pulse Rate (60-100) 61 Intake and Output for Last 24 Hours 03/10/19 03/11/19 03/12/19 23:59 23:59 23:59 Output Total 425 / 425 401 / 401 Balance -425 / -425 -401 / -401 Neck: No Nodes, Trachea Midline Lungs: Clear to auscultation, Normal air movement, No rhonchi, No wheeze Skin: No rashes, No breakdown Laboratory Results 03/11/19 14:46: WBC 6.0, RBC 4.26 L, Hgb 13.9, Hct 42.1, MCV 98.8 H, MCH 32.6 H, MCHC 33.0, RDW Std Deviation 49.2 H, RDW Coeff of Cinda 13.7, Plt Count 158, MPV 10.8, Immature Gran % (Auto) 0.300, Neut % (Auto) 77.2 H, Lymph % (Auto) 14.8 L, [place] % (Auto) 6.0, Eos % (Auto) 1.5, Baso % (Auto) 0.2, Absolute Neuts (auto) 4.6, Absolute Lymphs (auto) 0.89, Nucleated RBC % 0 03/11/19 14:46: Sodium 140, Potassium 4.0, Chloride 103, Carbon Dioxide 33.0 H, Anion Gap 4 L, BUN 22 H, Creatinine 1.34 H, Estim Creat Clear Calc 54.48, Est GFR (MDRD) Af Amer 68, Est GFR (MDRD) Non-Af 56 L, BUN/Creatinine Ratio 16.4, Glucose 210 H, Calcium 8.3 L, Troponin I < 0.015 03/11/19 14:46: PT 14.4, INR 1.1, APTT 36.9 H 03/11/19 14:46: B-Natriuretic Peptide 33.6 03/11/19 17:37: Troponin I < 0.015 03/11/19 21:39: POC Glucose 102 03/12/19 04:00: Urine Creatinine 177.00 03/12/19 05:38: Sodium 140, Potassium 3.6, Chloride 105, Carbon Dioxide 29.0, Anion Gap 6, BUN 21 H, Creatinine 0.90, Estim Creat Clear Calc 81.11, Est GFR (MDRD) Af Amer 107, Est GFR (MDRD) Non-Af 89, BUN/Creatinine Ratio 23.3 H, Glucose 145 H, Calcium 8.0 L, Triglycerides 174, Cholesterol 93, LDL Cholesterol 21, VLDL Cholesterol 35, HDL Cholesterol 37 L 03/12/19 06:19: POC Glucose 140 H 03/12/19 11:26: POC Glucose 207 H Discharge Diet: Low fat/ Low Cholesterol, 1800 Calorie Control Diet, 2000 mg Sodium Diet Discharge Activity: Return to Normal Activity Disposition: Home Patient Condition:: Stable Meaningful Use Info Meaningful Use Diagnoses (Choose all that apply): None applicable Code Visit OBSV E&M: 72102 Observation care discharge
== END 2019-03-12 11:32 | disposition home or self-care (01) ==
LOC: ED 16:54 → PCU 19:06
PROVIDERS: Physician Assistant; Admitting Provider Internal Medicine; Emergency Provider Emergency Medicine
DX: R07.89 Other chest pain (principal); N17.9 Acute kidney failure, unspecified; I25.10 Atherosclerotic heart disease of native coronary artery without angina pectoris; E78.5 Hyperlipidemia, unspecified; I10 Essential (primary) hypertension; E11.9 Type 2 diabetes mellitus without complications; G40.909 Epilepsy, unspecified, not intractable, without status epilepticus; J96.11 Chronic respiratory failure with hypoxia; G47.33 Obstructive sleep apnea (adult) (pediatric); E66.01 Morbid (severe) obesity due to excess calories; I69.354 Hemiplegia and hemiparesis following cerebral infarction affecting left non-dominant side; R94.31 Abnormal electrocardiogram [ECG] [EKG]; N40.0 Benign prostatic hyperplasia without lower urinary tract symptoms; E87.3 Alkalosis; Z95.1 Presence of aortocoronary bypass graft; Z79.899 Other long term (current) drug therapy; Z79.02 Long term (current) use of antithrombotics/antiplatelets; Z79.4 Long term (current) use of insulin; Z79.82 Long term (current) use of aspirin; Z95.0 Presence of cardiac pacemaker; Z99.81 Dependence on supplemental oxygen; Z87.891 Personal history of nicotine dependence; Z68.36 Body mass index [BMI] 36.0-36.9, adult; Z71.3 Dietary counseling and surveillance; R06.02 Shortness of breath
CPT/HCPCS: 36415; 71045; 78452; 80048; 80061; 82570; 82962; 83880; 84484; 85025; 85610; 85730; 93005; 93017; 94002; 94003; 94640; 96374; 96376; 99218; 99285; A9500; A4216; G0378; J2785

== ENCOUNTER 2019-04-04 10:29 | Emergency (ER) | payer OTHER, SELFPAY ==
[2019-03-11 17:22] VITALS: BMI 36.5
[2019-04-04 10:31] VITALS: BP 150/74; PULSE 66; RESP 17; TEMP 36.6; O2SAT 98; BMI 36.6
--- NOTE | 2019-04-04 10:41 | EKG12_ITS ---
Test Reason : CP Blood Pressure : / mmHG Vent. Rate : 070 BPM Atrial Rate : 070 BPM P-R Int : 186 ms QRS Dur : 122 ms QT Int : 448 ms P-R-T Axes : 088 -23 087 degrees QTc Int : 483 ms Sinus rhythm with Premature supraventricular complexes Non-specific intra-ventricular conduction delay Nonspecific ST and T wave abnormality Abnormal ECG Confirmed by YUNI GUALLPA, JOANNA ([id number]), non linear editor NADINE FERRER ([id number]) on 04/06/2019 9:02:45 AM Referred By: SUSU Confirmed By:JOANNA MORRISSEY MD
--- NOTE | 2019-04-04 10:41 | RAD_ITS ---
STUDY: X-RAY CHEST REASON FOR EXAM: Male, 68 years old. Syncope, chest pressure, SOB TECHNIQUE: Single AP portable view of the chest. COMPARISON: Comparison is made with prior study dated March 11, 2019. FINDINGS: EKG electrodes are seen. Stable increased markings in the lingular segment of the left upper lobe suggestive of scarring. There is no demonstrated pleural abnormality. Sternal cerclage wires and vascular clips are present from a prior sternotomy and coronary artery bypass graft procedure (CABG). A left-sided dual-chamber pacemaker is seen. Normal mediastinum and cata. Normal visualized pulmonary arteries. There is atherosclerotic tortuosity of the aortic arch and descending thoracic aorta. There are diffuse degenerative changes of the visualized thoracic spine. There is degenerative osteoarthritis of the bilateral shoulders. There is no demonstrated abnormality of the visualized soft tissue structures of the upper abdomen. RAD/Chest 1 View (Portable) IMPRESSION: Stable examination. Mild increased markings in the lingular segment of the left upper lobe suggestive of scarring. Prior CABG. Electronically Signed: Mick García, at 11:05 EST , Service support ,
--- NOTE | 2019-04-04 10:42 | ED.VIS.GEN ---
History of Present Illness Chief Complaint: Syncope Detail of Chief Complaint: Syncope after using commode, chest pain and shortness of breath Informant: Patient, Significant Other Onset: Today - Syncopal episode occurred today, Days - Chest pain shortness of breath since evening Context: Sudden Onset Timing: Continuous - Chest pain and shortness of breath are continuous, Intermittent - Syncopal episode was transient Quality: Passed out and midsternal chest discomfort shortness of breath Location: Midsternal Current Severity: Moderate Maximum Severity: Moderate Worsened by: Nothing Relieved by: Nothing Associated Symptoms: Nausea and diaphoresis with syncope Narrative: Patient is a elderly male with multiple significant medical problems who presented because of single episode that occurred after using the commode. He had vasovagal-like symptoms. There was no incontinence. There is no seizure activity. He denies headache. He denies visual, ocular auditory symptoms. He denies black or maroon stool. He had a several day stay at [facility] last week. He was discharged morning. Patient's had chest pain since evening. This associate with shortness of breath. He is on continuous oxygen and uses BiPAP at night. He also reports 3 pillow orthopnea which is baseline for him. He does report cough with colored sputum. He does have history of COPD. He denies fever, chills or night sweats. Chest pain is not exacerbated or alleviated by anything. The chest pain was not brought on by any activity. Patient is no more short of breath than normal. Prior similar symptoms: Yes Recent Illness/Hospitalization: Yes - Past Medical History (1) Chest pain Status: Acute (2) Atherosclerotic heart disease [place] coronary artery w/angina pectoris Status: Chronic Comment: Cardiac catheterization 02/24/2017?normal LV size should not, EF 55%, [place] multivessel CAD, patent SVG to diagonal 1, OM 2, and RCA, MASON to LAD previously reported as atretic/nonfunctional (not reevaluated at that time), advised medical therapy (3) CVA (cerebral vascular accident) Status: Chronic Comment: Residual left-sided weakness (4) Chronic respiratory failure Status: Chronic Comment: baseline 3L continuously (5) DM type 2 (diabetes mellitus, type 2) Status: Chronic (6) Essential (primary) hypertension Status: Chronic (7) History of permanent cardiac pacemaker placement Status: Chronic Comment: 2001 (8) Hyperlipidemia Status: Chronic (9) Left-sided weakness Status: Chronic (10) EKATERINA (obstructive sleep apnea) Status: Chronic (11) Obesity Status: Chronic (12) H/O coronary artery bypass surgery Status: Resolved Comment: CABG x 4 MASON-LAD, SVG-D1, SVG-OM2, SVG-RCA (13) History of coronary artery stent placement Status: Resolved Comment: Previously placed stent has an instent 85 % restenosis followed by subtotal occlusion per [facility] 02/2017 Past Medical History - Allergies and Home Meds Allergies/Adverse Reactions: Allergies ezetimibe Allergy (Verified 04/04/19 10:31) Unknown Fish Containing Products Allergy (Verified 04/04/19 10:31) Unknown glyburide Allergy (Verified 04/04/19 10:31) Unknown lisinopril Allergy (Verified 04/04/19 10:31) Unknown metformin Allergy (Verified 04/04/19 10:31) Nausea metoprolol Allergy (Verified 04/04/19 10:31) Unknown simvastatin Allergy (Verified 04/04/19 10:31) Unknown Primary Care Physician: [facility] [Primary Care Provider] - Prior records reviewed: Yes Surgical History: angioplasty, coronary bypass surgery, pacemaker implantation, - - cabg,cholecystectemy, hernia, left knee, 4 stents Lives: Spouse/ Significant Other Smoking Status: Former smoker Alcohol: None Drugs: None - Family History Maternal Family History: Reports: Heart Disease Paternal Family History: Reports: - - Patient does not know his paternal family history. Review of Systems General: Denies: Chills, Fever, Malaise, Sweats Eyes: Denies: Visual changes - bilaterally, Blurred Vision - bilaterally ENT: Denies: Rhinorrhea, Sore throat Cardiovascular: Reports: Chest pain. Denies: Palpitations, Heart racing Respiratory: Reports: Dyspnea, Cough, Sputum, Dyspnea on exertion, Orthopnea. Denies: Paroxysmal nocturnal dyspnea Gastrointestinal: Denies: Abdominal pain, Nausea, Vomiting, Diarrhea, Melena, Hematochezia Genitourinary: Denies: Dysuria, Hematuria, Frequency Musculoskeletal: Denies: Myalgias, Arthralgias, Neck pain, Back pain, Swelling, Extremity Pain, -, - Skin: Denies: Rash, Wounds Neurological: Denies: Headache, Weakness, Numbness Endocrine: Denies: Polyuria, Polydipsia Hematologic: Denies: Easy bruising, Easy bleeding Physical Exam Vital Signs/Narrative: Vital Signs Temp Pulse Resp BP Pulse Ox 04/04/19 10:31 97.8 F 66 17 150/74 H 98 Inital Vital Signs reviewed: Yes General: Well nourished, Well developed, Obese, No Acute Distress Head: Normocephalic, Atraumatic Eyes: Perrl, EOMI. Negative for: Pale conjunctiva, Scleral icterus ENT: Moist mucous membranes, No rhinorrhea, TM's clear Neck: Supple, Nontender, No lymphadenopathy, No JVD Cardiovascular: Regular rate, Regular rhythm, No murmurs, Normal S1, Normal S2 Respiratory: CTA bilaterally - Is little air movement., Chest nontender, Decreased Air Movement Abdomen: Soft, Nontender, Nondistended, Normal bowel sounds Rectal: Deferred Back: Nontender, Normal Inspection. Negative for: CVA tenderness Extremities: Nontender, Edema - 2 mm of depression Skin: Normal color, No rash, No Trauma. Negative for: Cyanosis, Diaphoresis, Jaundice Neurological: Alert, Oriented x3, Cranial nerves II-XII grossly intact, Normal Strength, Normal Sensation Psychological: Normal affect Diagnostic/Tx/Re-eval Chest X-Ray - ED: 2 View, Read by ED Physician, Normal, Heart, Lungs, Bony Structures, No Acute Disease, Chronic Changes, - - Tray was read at 1055. Impressions Chest X-Ray 04/04/19 10:41 IMPRESSION: Stable examination. Mild increased markings in the lingular segment of the left upper lobe suggestive of scarring. Prior CABG. Electronically Signed: Mick García, at 11:05 EST , Service support , 04/04/19 10:41 Chest 1 View (Portable) [RAD] Stat Laboratory Results 04/04/19 04/04/19 10:43 10:43 WBC 5.3 RBC 4.24 L Hgb 14.0 Hct 41.9 MCV 98.8 H MCH 33.0 H MCHC 33.4 RDW Std Deviation 49.9 H RDW Coeff of Cinda 14.3 Plt Count 153 MPV 10.4 Immature Gran % (Auto) 0.400 Neut % (Auto) 72.7 H Lymph % (Auto) 17.3 L [place] % (Auto) 6.7 Eos % (Auto) 2.5 Baso % (Auto) 0.4 Absolute Neuts (auto) 3.8 Absolute Lymphs (auto) 0.91 Nucleated RBC % 0 Sodium 138 Potassium 4.3 Chloride 104 Carbon Dioxide 30.0 Anion Gap 4 L BUN 21 H Creatinine 1.05 Estim Creat Clear Calc 69.52 Est GFR (MDRD) Af Amer 90 Est GFR (MDRD) Non-Af 75 BUN/Creatinine Ratio 20.0 Glucose 270 H Calcium 8.6 Troponin I < 0.015 Patient's laboratory work-up is remarkable for blood sugar of 270. White count is normal. H&H is normal. Troponin with 72 hours of pain is normal. Plan is to discharge to home with appropriate home-going instructions and treatment for exacerbation of COPD. Since he reports colored sputum will treat with antibiotic. and patient were informed that because of him passing out was a vasovagal response using the commode. - EKG Initial EKG Interpretation: Sinus Rhythm - Sinus rhythm with a ventricular rate of 70. There is one premature atrial beat noted. OR interval 186 ms. QS duration 122 ms. QT interval 448 ms. [place] is normal. There is evidence of a nonspecific intraventricular conduction delay. There are no acute ischemic changes noted. - Medical Decision Making Suspect patient's syncope is a vasovagal response. In light of his significant past medical history will obtain EKG and appropriate blood work. Will obtain a troponin to evaluate for cardiac ischemia since he has had continuous pain for days. Because there is decreased air movement he reports productive cough of colored sputum chest x-ray was obtained to assess for pneumonia versus exacerbation of COPD. Work-up was unremarkable. and patient were made aware. 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 I was informed the patient was lying on the examination bed with head turned to the right and there was fluttering of his upper eyelid. He responded promptly to noxious stimuli. There was no postictal state. There was no abnormal motor activity noted by . ED Disposition - Plan for ED Patient: Disposition: Home or Assisted Living Diagnosis: Syncope and collapse, Asthma exacerbation in COPD, Hyperglycemia due to type 2 diabetes mellitus Prescriptions: Doxycycline 100 mg PO BID #14 cap Transmission Status: Pending to [id number] Referrals: [facility] [Primary Care Provider] - 3-5 Days if not improving
[2019-04-04 10:48] VITALS: TEMP 37
[2019-04-04 10:52] LABS: Absolute Lymphocyte Count 0.91 X10^3/uL (0.83-4.51); Absolute Neutrophil Count 3.8 X10^3/uL (2.0-7.7); Basophil# 0.02 X10^3/uL; Basophil% 0.4 % (0-1); Eosinophil# 0.13 X10^3/uL; Eosinophils% 2.5 % (0-5); Hematocrit 41.9 % (40-54); Lymphocyte # 0.91 X10^3/ul (4.0); Lymphocyte % 17.3 % (19-41); Mean Corp Hgb Conc 33.4 g/dL (32-36); Mean Corpuscular Volume 98.8 fL (80-94); Mean Platelet Vol. 10.4 fl (6.2-12.0); Monocyte# 0.35 X10^3/uL; Monocyte% 6.7 % (0-10); NRBC Flagged by Analyzer 0 % (0-5); Neutrophil # 3.82 X10^3/uL (2.7-7.7); Neutrophil % 72.7 % (47-70); Platelet Count 153 K/mm3 (150-450); RBC Distribution Width CV 14.3 % (11.6-14.6); RBC Distribution Width SD 49.9 fl (35.1-43.9); Red Blood Count 4.24 M/mm3 (4.6-6.2); White Blood Count 5.3 K/mm3 (4.4-11.0)
--- NOTE | 2019-04-04 11:07 | ED.RN ---
PT STATES PT PASSED OUT. PT WAKES UPON RN IN ROOM. NO CHANGE IN BP OR VITAL SIGNS. DR KIM
[2019-04-04 11:09] LABS: Anion Gap 4 (5-15); BUN 21 mg/dL (7-18); Calcium,Total 8.6 mg/dL (8.5-10.1); Chloride 104 mmol/L (98-107); Creatinine, Serum 1.05 mg/dL (0.70-1.30); EST Glomerular Filtration Rate 75 mL/min (>60); Est Glom Filt Rate - Afr Amer 90 mL/min (>60); Estimated Creatinine Clearance 69.52 ml/min; Glucose 270 mg/dL (74-106); Potassium 4.3 mmol/L (3.5-5.1); Sodium Level 138 mmol/L (136-145)
--- NOTE | 2019-04-04 11:18 | ED.DCSUM_ITS ---
- ER Visit Summary Date of Service: 04/04/19 Chief Complaint: [] History of Present Illness: The patient is a 68 M [] Physical Examination: [] Test Results: [] Emergency Department Course and Treatment: [] Treatment Plan: [] Disposition: [] Impression: [] This note was generated with [employer] dictation software. It may contain incorrect words, spelling, and punctuation that were not noted in review of the chart prior to signing ED Disposition - Plan for ED Patient: Disposition: Home or Assisted Living Diagnosis: Syncope and collapse, Asthma exacerbation in COPD, Hyperglycemia due to type 2 diabetes mellitus Instructions: SYNCOPE, Vasovagal, Copd Flare Prescriptions: Doxycycline 100 mg PO BID #14 cap Transmission Status: Received by [id number] Referrals: [facility] [Primary Care Provider] - 3-5 Days if not improving
[2019-04-04 11:52] VITALS: TEMP 36.7
[2019-04-04] MEDS: Doxycycline 100 MG CAPSULE PO (11:53)
== END 2019-04-04 11:54 | disposition home or self-care (01) ==
PROVIDERS: Emergency Provider Emergency Medicine
DX: R55 Syncope and collapse (principal); J44.1 Chronic obstructive pulmonary disease with (acute) exacerbation; E11.65 Type 2 diabetes mellitus with hyperglycemia; E66.9 Obesity, unspecified; I25.119 Atherosclerotic heart disease of native coronary artery with unspecified angina pectoris; I69.354 Hemiplegia and hemiparesis following cerebral infarction affecting left non-dominant side; J96.10 Chronic respiratory failure, unspecified whether with hypoxia or hypercapnia; E78.5 Hyperlipidemia, unspecified; G47.33 Obstructive sleep apnea (adult) (pediatric); I10 Essential (primary) hypertension; Z95.1 Presence of aortocoronary bypass graft; Z99.81 Dependence on supplemental oxygen; Z79.82 Long term (current) use of aspirin; Z79.02 Long term (current) use of antithrombotics/antiplatelets; Z79.4 Long term (current) use of insulin; Z79.899 Other long term (current) drug therapy; Z87.891 Personal history of nicotine dependence
CPT/HCPCS: 71045; 80048; 84484; 85025; 93005; 99285; A4216

== ENCOUNTER 2019-11-08 17:26 | Inpatient (IN) | payer OTHER, MEDICARE, SELFPAY ==
[2019-11-08] VITALS (10 sets, daily range): BP systolic 127–188; BP diastolic 73–81; PULSE 60–97; RESP 14–23; TEMP 36.5–36.7; O2SAT 97–99; BMI 36.6; BMI 35.5
--- NOTE | 2019-11-08 17:29 | EKG12_ITS ---
Test Reason : CP ADMISSION Blood Pressure : / mmHG Vent. Rate : 065 BPM Atrial Rate : 065 BPM P-R Int : 204 ms QRS Dur : 126 ms QT Int : 456 ms P-R-T Axes : 025 -39 090 degrees QTc Int : 474 ms Normal sinus rhythm Left axis deviation Non-specific intra-ventricular conduction block Abnormal ECG When compared with ECG of 08-NOV-2019 17:32, MANUAL COMPARISON REQUIRED, DATA IS UNCONFIRMED Confirmed by PADILLA GUALLPA, CALI ([id number]), managing editor NADINE FERRER ([id number]) on 11/15/2019 12:57:43 PM Referred By: DR MATHIS Confirmed By:CALI CAUSEY MD
--- NOTE | 2019-11-08 17:32 | ED.DCSUM_ITS ---
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 History is hard to gather from the patient. He states today, he had tightness across his upper chest and felt short of breath. He states that he felt like his whole body was numb. He states nothing seemed to make it better or worse. He states that he also felt short of breath with this. He denies any fevers or chills. He denies any cough or productive sputum. He states he is been compliant with his medications. Prior similar symptoms: Yes Recent Illness/Hospitalization: No Past Medical History - Allergies and Home Meds Allergies/Adverse Reactions: Allergies ezetimibe Allergy (Verified 11/08/19 17:31) Unknown Fish Containing Products Allergy (Verified 11/08/19 17:31) Unknown glyburide Allergy (Verified 11/08/19 17:31) Unknown lisinopril Allergy (Verified 11/08/19 17:31) Unknown metformin Allergy (Verified 11/08/19 17:31) Nausea metoprolol Allergy (Verified 11/08/19 17:31) Unknown simvastatin Allergy (Verified 11/08/19 17:31) Unknown Primary Care Physician: [facility] [Primary Care Provider] - Prior records reviewed: Yes Past Medical History: - - COPD, hypertension, hyperlipidemia, prior stroke Surgical History: angioplasty, coronary bypass surgery, pacemaker implantation, - - cabg,cholecystectemy, hernia, left knee, 4 stents Smoking Status: Former smoker - Family History Maternal Family History: Reports: Heart Disease Paternal Family History: Reports: - - Patient does not know his paternal family history. Review of Systems General: Denies: Chills, Fever, Sweats Eyes: Denies: Visual changes - bilaterally, Diplopia ENT: Denies: Rhinorrhea, Sore throat Cardiovascular: Reports: Chest pain. Denies: Palpitations Respiratory: Reports: Dyspnea. Denies: Cough, Dyspnea on exertion Gastrointestinal: Denies: Abdominal pain, Nausea, Vomiting, Diarrhea, Melena, Hematochezia Genitourinary: Denies: Dysuria, Hematuria, Frequency Musculoskeletal: Denies: Back pain, Extremity Pain Skin: Denies: Rash, Wounds Neurological: Denies: Headache, Weakness, Numbness Physical Exam Vital Signs/Narrative: Vital Signs Temp Pulse Resp BP Pulse Ox 11/08/19 17:27 97.7 F L 67 23 H 188/81 H 99 Inital Vital Signs reviewed: Yes General: Well nourished, Well developed, No Acute Distress Head: Normocephalic, Atraumatic Eyes: Perrl, EOMI ENT: Moist mucous membranes, No rhinorrhea Neck: Supple, Nontender Cardiovascular: Regular rate, Regular rhythm, No murmurs Respiratory: No distress, Chest nontender, Diminished Abdomen: Soft, Nontender, Nondistended, Normal bowel sounds Back: Nontender, Normal Inspection Extremities: Nontender, No edema Skin: Normal color, No rash Neurological: Alert, Oriented x3, Cranial nerves II-XII grossly intact Psychological: Normal affect, Normal Mood Diagnostic/Tx/Re-eval Abnormal Lab Results 11/08/19 11/08/19 17:40 17:40 WBC 5.0 RBC 4.02 L Hgb 13.5 Hct 39.3 L MCV 97.8 H MCH 33.6 H MCHC 34.4 RDW Std Deviation 46.5 H RDW Coeff of Cinda 13.1 Plt Count 151 MPV 9.6 Immature Gran % (Auto) 0.400 Neut % (Auto) 65.4 Lymph % (Auto) 22.1 [place] % (Auto) 8.9 Eos % (Auto) 2.6 Baso % (Auto) 0.6 Absolute Neuts (auto) 3.3 Absolute Lymphs (auto) 1.11 Nucleated RBC % 0 Sodium 141 Potassium 4.2 Chloride 103 Carbon Dioxide 33.0 H Anion Gap 5 BUN 11 Creatinine 0.91 Estim Creat Clear Calc 79.11 Est GFR (MDRD) Af Amer 106 Est GFR (MDRD) Non-Af 88 BUN/Creatinine Ratio 12.1 Glucose 125 H Calcium 8.6 Magnesium 2.0 Troponin I < 0.015 - Rhythm Strip Rhythm Strip: Paced Rate: 60 Ectopy: None - EKG Initial EKG Interpretation: Paced, Non-Specific ST Changes Prior: Unchanged - Medical Decision Making Patient presents to the emergency department chest pain and dyspnea. Is rather sudden onset. He describes it as bandlike across his chest. EKG did not show acute ischemic change. He was given nitro with little change in his pain. He was then ordered morphine. His x-ray does show chronic change within the left lingular area, without evidence of significant volume overload. Cardiac enzymes are negative. Given the patient's significant cardiac history, I do feel that he would benefit from observation for cardiac rule out. He was discussed with the hospitalist who agrees with plan of care. Impression 1. Chest pain with history of coronary vascular disease. ED Disposition - Plan for ED Patient: [facility] [[facility] [place]] -
[2019-11-08] MEDS: Aspirin 81 MG TAB.CHEW 324 MG PO (17:44)
[2019-11-08] MEDS: Nitroglycerin SL (ED/IMG/CATH) 0.4 MG TABLET SUBLINGUAL ×3 (17:45→18:17)
[2019-11-08 17:46] LABS: Absolute Lymphocyte Count 1.11 X10^3/uL (0.83-4.51); Absolute Neutrophil Count 3.3 X10^3/uL (2.0-7.7); Basophil# 0.03 X10^3/uL; Basophil% 0.6 % (0-1); Eosinophil# 0.13 X10^3/uL; Eosinophils% 2.6 % (0-5); Hematocrit 39.3 % (40-54); Hemoglobin 13.5 g/dL (13.0-16.5); Lymphocyte # 1.11 X10^3/ul (4.0); Lymphocyte % 22.1 % (19-41); Mean Corp Hgb Conc 34.4 g/dL (32-36); Mean Corpuscular Hgb 33.6 pg (27.0-32.0); Mean Corpuscular Volume 97.8 fL (80-94); Mean Platelet Vol. 9.6 fl (6.2-12.0); Monocyte# 0.45 X10^3/uL; Monocyte% 8.9 % (0-10); NRBC Flagged by Analyzer 0 % (0-5); Neutrophil # 3.29 X10^3/uL (2.7-7.7); Neutrophil % 65.4 % (47-70); Platelet Count 151 K/mm3 (150-450); RBC Distribution Width CV 13.1 % (11.6-14.6); RBC Distribution Width SD 46.5 fl (35.1-43.9); Red Blood Count 4.02 M/mm3 (4.6-6.2)
--- NOTE | 2019-11-08 17:55 | RAD_ITS ---
STUDY: X-RAY CHEST REASON FOR EXAM: Male, 69 years old. Weakness TECHNIQUE: Frontal view of the chest COMPARISON: 04/04/19 FINDINGS: The lungs are clear. There are no pleural effusions. There is no pneumothorax. The heart is enlarged, but stable. Again noted are sternotomy wires and pacemaker. The visualized osseous structures are within normal limits. RAD/Chest 1 View (Portable) IMPRESSION: No acute thoracic pathology. Electronically Signed: Mark Canas, at 19:01 EDT Tel , Service support ,
[2019-11-08 18:10] LABS: Anion Gap 5 (5-15); BUN 11 mg/dL (7-18); BUN/Creat Ratio 12.1 RATIO (10-20); Calcium,Total 8.6 mg/dL (8.5-10.1); Chloride 103 mmol/L (98-107); Creatinine, Serum 0.91 mg/dL (0.70-1.30); EST Glomerular Filtration Rate 88 mL/min (>60); Est Glom Filt Rate - Afr Amer 106 mL/min (>60); Estimated Creatinine Clearance 79.11 ml/min; Glucose 125 mg/dL (74-106); Potassium 4.2 mmol/L (3.5-5.1); Sodium Level 141 mmol/L (136-145)
--- NOTE | 2019-11-08 18:30 | HP.PCM_ITS ---
History of Present Illness Date of Admission: 11/08/19 Chief Complaint: chest pain The patient is a 69 year old M with an extensive past medical history as outlined which includes CAD status post CABG, hypertension, hyperlipidemia and diabetes mellitus as well as a previous stroke with residual left-sided weakness and dysarthria. He was admitted through the ED on 11/08/2019 with a complaint of chest pain. He started having tightness across his upper chest on the day of admission and also felt short of breath. Chest pain no aggravating or relieving factors. He had associated shortness of breath. He also complained of generalized pain and said he felt like needles when he stuck all over him. He also admitted to a cough which is productive of scant clear sputum. He denies any contact with any patient with COVID. Review of signs otherwise negative. The ED, vitals show temperature of 97.7 Fahrenheit with blood pressure of 142/79, pulse rate of 66 respiratory rate of 23. He was saturating at 99% on 3 L of oxygen. Chemistry essentially unremarkable initial troponin was negative. CBC was also essentially unremarkable. BNP was pending at time of review. EKG showed sinus rhythm with first-degree AV block which is no different from previous EKGs. He has been admitted to be managed for chest pain rule out ACS. [] Past Medical History Past Medical History (Chronic Problems): Chronic Problems (Last Updated 03/12/19 @ 07:25 by Loyda Panda) History of permanent cardiac pacemaker placement (Chronic 09/10/11) 2001 Atherosclerotic heart disease [place] coronary artery w/angina pectoris (Chronic) Cardiac catheterization 02/24/2017?normal LV size should not, EF 55%, [place] multivessel CAD, patent SVG to diagonal 1, OM 2, and RCA, [place] to LAD previously reported as atretic/nonfunctional (not reevaluated at that time), advised medical therapy Essential (primary) hypertension (Chronic) EKATERINA (obstructive sleep apnea) (Chronic) Left-sided weakness (Chronic) Hyperlipidemia (Chronic) Obesity (Chronic) Chronic respiratory failure (Chronic) baseline 3L continuously DM type 2 (diabetes mellitus, type 2) (Chronic) Obstructive sleep apnea (Chronic) Seizure (Chronic) Aphasia (Chronic) CVA (cerebral vascular accident) (Chronic) Residual left-sided weakness Medical History: Medical History (Last Updated 03/12/19 @ 07:25 by Loyda Panda) Atherosclerotic heart disease [place] coronary artery w/angina pectoris (Chronic) I25.119 Cardiac catheterization 02/24/2017?normal LV size should not, EF 55%, [place] multivessel CAD, patent SVG to diagonal 1, OM 2, and RCA, [place] to LAD previously reported as atretic/nonfunctional (not reevaluated at that time), advised medical therapy Essential (primary) hypertension (Chronic) I10 Chest pain (Acute) R07.9 CONI (acute kidney injury) (Acute) N17.9 EKATERINA (obstructive sleep apnea) (Chronic) G47.33 Abnormal EKG (Acute) R94.31 Chest wall contusion (Acute) S20.219A Atypical chest pain (Acute) R07.89 Left-sided weakness (Chronic) R53.1 Hyperlipidemia (Chronic) E78.5 Obesity (Chronic) E66.9 Chronic respiratory failure (Chronic) J96.10 baseline 3L continuously Allergies ezetimibe Allergy (Verified 11/08/19 17:31) Unknown Fish Containing Products Allergy (Verified 11/08/19 17:31) Unknown glyburide Allergy (Verified 11/08/19 17:31) Unknown lisinopril Allergy (Verified 11/08/19 17:31) Unknown metformin Allergy (Verified 11/08/19 17:31) Nausea metoprolol Allergy (Verified 11/08/19 17:31) Unknown simvastatin Allergy (Verified 11/08/19 17:31) Unknown Home Medications: Ambulatory Orders Medication Instructions Recorded Aspirin E.C. [Ecotrin] 81 mg PO DAILY@0800 06/11/18 Atorvastatin Calcium [Lipitor] 80 mg PO QHS 06/11/18 Cholecalciferol (VIT D3) [Vitamin 3,000 units PO DAILY 06/11/18 D3] Clopidogrel Bisulfate [Clopidogrel] 75 mg PO DAILY 06/11/18 Escitalopram Oxalate [Lexapro] 10 mg PO DAILY 06/11/18 Finasteride [Proscar] 5 mg PO DAILY 06/11/18 Furosemide [Lasix] 20 mg PO DAILY 06/11/18 Insulin Regular, Human [Humulin R 195 unit SQ BREAKFAST 06/11/18 U-500 Kwikpen] Insulin Regular, Human [Humulin R 195 unit SQ DINNER 06/11/18 U-500 Kwikpen] Multivitamins,Ther W-Minerals 1 tablet PO DAILY 06/11/18 [Multivitamin With Minerals (BKC)] Pantoprazole Sodium 40 mg PO BIDCM 06/11/18 Ranolazine [Ranexa] 1,000 mg PO BID 06/11/18 Tamsulosin HCl [Flomax] 0.8 mg PO QHS 06/11/18 Acetaminophen [Tylenol Tablet] 650 mg PO Q6H PRN PRN tablet 06/21/18 Nitroglycerin (INPATIENT USE) 0.4 mg SUBLINGUAL Q5M PRN #30 07/22/18 [Nitrostat] tablet Carvedilol [Coreg] 12.5 mg PO BID 12/03/18 Diclofenac Sodium [Diclo Gel] 4 gm TP BID PRN PRN 11/08/19 Guaifenesin 10 ml PO TID PRN PRN 11/08/19 Ketoconazole [Nizoral] 1 applicatio TP DAILY 11/08/19 Surgical History: Surgical History (Last Updated 03/12/19 @ 07:29 by Loyda Panda) History of permanent cardiac pacemaker placement (Chronic) Onset Date: 09/10/11 Z95.0 2001 History of coronary artery stent placement (Resolved) Z95.5 Previously placed stent has an instent 85 % restenosis followed by subtotal occlusion per [facility] 02/2017 H/O coronary artery bypass surgery (Resolved) Z95.1 CABG x 4 [place]-LAD, SVG-D1, SVG-OM2, SVG-RCA Surgical History: angioplasty, coronary bypass surgery, pacemaker implantation, - - cabg,cholecystectemy, hernia, left knee, 4 stents Psychiatric History: Depression Smoking Status: Former smoker - *Family History Maternal History Items: Heart Disease Paternal History Items: - - Patient does not know his paternal family history. Review of Systems Constitutional: Denies: Chills, Fever, Weight Change Eyes: Denies: Blurred vision HEENT: Denies: Head Aches, Sinus Congestion, Sinus Drainage Cardiovascular: Reports: Chest Pain, Chest Pressure. Denies: Edema, Heaviness, Light Headedness Respiratory: Reports: Shortness of Breath. Denies: Cough, Shortness of breath at rest, Sputum production Gastrointestinal: Denies: Abdominal Pain, Nausea, Vomiting Genitourinary: Denies: Dysuria Musculoskeletal: Denies: Joint Pain, Joint Tenderness Skin: Denies: Rash, Wounds Neurological: Denies: Numbness, Tingling, Focal weakness Psychiatric: Denies: Anxiety, Depression, Homicidal Ideations, Suicidal Ideations Hematologic/ Lymphatic: Denies: Easy Bruising, Easy Bleeding VTE Information - Inpt Only VTE Present on Admission: No VTE Pharm Prophylaxis ordered?: Yes - Physical Exam Vitals/I&O's: Vital Signs Temp Pulse Resp BP Pulse Ox 97.7 F L 66 23 H 142/79 H 99 11/08/19 17:27 11/08/19 18:17 11/08/19 17:27 11/08/19 18:17 11/08/19 17:27 Oxygen Flow Rate (L/min) 3 Oxygen Delivery Method Nasal Cannula Weight: 254 lb 13.67 oz Body Mass Index (BMI) 36.6 Finger Stick Blood Glucose 138 General: Alert, Lethargic HEENT: Atraumatic, PERRLA, EOMI, Normocephalic Oral: Dry Mucosa Neck: Supple, No JVD, Negative Carotid Bruits Lungs: Clear to auscultation, Normal air movement, No rhonchi, No wheeze, No rales Cardiovascular: Regular rate, Regular Rhythm, Normal S1, Normal S2, No murmurs Abdomen: Bowel Sounds Present, Soft, Non Tender, Non-Distended, No Hepato- splenomegaly Extremities: No clubbing, No cyanosis, No edema, Capillary Refill Less than 3 Seconds Skin: No rashes, No breakdown Musculoskeletal: No Tenderness to Palpation of Joints or Extremities Lymphatic: No Cervical, Supraclavicular, or Inguinal Adenopathy Neurological: Cranial nerves II-XII grossly intact, Neuro grossly intact, Motor Exam 5/5 strength throughout Psych/Mental Status: Normal Affect, Appropriate Laboratory Results 11/08/19 17:40: WBC 5.0, RBC 4.02 L, Hgb 13.5, Hct 39.3 L, MCV 97.8 H, MCH 33.6 H, MCHC 34.4, RDW Std Deviation 46.5 H, RDW Coeff of Cinda 13.1, Plt Count 151, MPV 9.6, Immature Gran % (Auto) 0.400, Neut % (Auto) 65.4, Lymph % (Auto) 22.1, [place] % (Auto) 8.9, Eos % (Auto) 2.6, Baso % (Auto) 0.6, Absolute Neuts (auto) 3.3, Absolute Lymphs (auto) 1.11, Nucleated RBC % 0 11/08/19 17:40: Sodium 141, Potassium 4.2, Chloride 103, Carbon Dioxide 33.0 H, Anion Gap 5, BUN 11, Creatinine 0.91, Estim Creat Clear Calc 79.11, Est GFR (MDRD) Af Amer 106, Est GFR (MDRD) Non-Af 88, BUN/Creatinine Ratio 12.1, Glucose 125 H, Calcium 8.6, Magnesium 2.0, Troponin I < 0.015 11/08/19 17:40: B-Natriuretic Peptide Pending Assessment/Plan All Active Problems (Last Updated 03/12/19 @ 07:25 by Loyda Panda) History of coronary artery stent placement (Resolved) H/O coronary artery bypass surgery (Resolved) Chest pain (Acute) CONI (acute kidney injury) (Acute) Abnormal EKG (Acute) Chest wall contusion (Acute) Atypical chest pain (Acute) 69-year-old admitted with a complaint of chest pain. #Chest pain rule out ACS * Admit to PCU with telemetry * Initial troponin is negative. Cycle troponins x3. * Sublingual nitroglycerin PRN. P.o. aspirin 81 mg daily. * For stress test tomorrow if troponins are negative. * #CAD s/p CABG and stents: On aspirin and Plavix as well as ranolazine and atorvastatin and carvedilol. #Chronic respiratory failure: On 3 L of oxygen at baseline. Titrate oxygen to maintain saturation above 90%. Breathing treatments with bronchodilators. #Type 2 diabetes mellitus: On regular insulin 195 units twice daily. Insulin sliding scale. Accu-Cheks AC at bedtime. #EKATERINA: On BIPAP, setting 01/11 DVT prophylaxis: Lovenox OBSV E&M: [id number] Initial observation care L2
[2019-11-08 18:46] LABS: BNP,B-Type NATRIURETIC PEPTIDE 44.4 pg/mL (0-100)
[2019-11-08] MEDS: Morphine 4 MG/ML Syringe IV ×2 (18:58→23:03)
--- NOTE | 2019-11-08 20:33 | EKG12_ITS ---
Test Reason : CP Blood Pressure : / mmHG Vent. Rate : 064 BPM Atrial Rate : 064 BPM P-R Int : 226 ms QRS Dur : 122 ms QT Int : 460 ms P-R-T Axes : 032 -29 094 degrees QTc Int : 474 ms Sinus rhythm with 1st degree A-V block Non-specific intra-ventricular conduction delay Nonspecific ST and T wave abnormality Abnormal ECG Confirmed by PADILLA GUALLPA, CALI ([id number]), editorial manager NADINE FERRER ([id number]) on 11/11/2019 1:01:34 PM Referred By: MAURO Confirmed By:CALI CAUSEY MD
[2019-11-08] MEDS: Ranolazine 500 MG Tablet 1000 MG PO (23:02)
[2019-11-08] MEDS: Tamsulosin HCl 0.4 MG Capsule 0.8 MG PO (23:03)
[2019-11-08] MEDS: Atorvastatin Calcium 80 MG Tablet PO (23:03)
[2019-11-08] MEDS: guaiFENesin 10 ML UDC (200MG/10ML) PO (23:03)
[2019-11-08] MEDS: Carvedilol 12.5 MG Tablet PO (23:03)
[2019-11-08] MEDS: 0.9% Saline Lock 10 ML Syringe IV (23:04)
[2019-11-09] VITALS (13 sets, daily range): BP systolic 117–131; BP diastolic 57–76; PULSE 60–80; RESP 16–18; TEMP 36.3–36.7; O2SAT 94–99
[2019-11-09 00:06] LABS: Bedside Glucose 153 mg/dL (70-110)
--- NOTE | 2019-11-09 01:05 | CPS ---
pt has sleep lab machine, pt wanted to wear his own nasal pillows. He brought them in from home. 01/11 are pt settings with a 3L bleed in
[2019-11-09] MEDS: Morphine 4 MG/ML Syringe IV (02:56)
[2019-11-09] MEDS: 0.9% Saline Lock 10 ML Syringe IV ×7 (02:57→23:41)
[2019-11-09] MEDS: guaiFENesin 10 ML UDC (200MG/10ML) PO ×3 (02:59→21:02)
[2019-11-09 03:40] LABS: Absolute Lymphocyte Count 1.32 X10^3/uL (0.83-4.51); Basophil# 0.01 X10^3/uL; Basophil% 0.2 % (0-1); Eosinophil# 0.18 X10^3/uL; Eosinophils% 3.7 % (0-5); Hematocrit 37.5 % (40-54); Hemoglobin 12.8 g/dL (13.0-16.5); Lymphocyte # 1.32 X10^3/ul (4.0); Lymphocyte % 27.3 % (19-41); Mean Corp Hgb Conc 34.1 g/dL (32-36); Mean Corpuscular Hgb 33.9 pg (27.0-32.0); Mean Corpuscular Volume 99.2 fL (80-94); Mean Platelet Vol. 10.2 fl (6.2-12.0); Monocyte# 0.32 X10^3/uL; Monocyte% 6.6 % (0-10); NRBC Flagged by Analyzer 0 % (0-5); Platelet Count 132 K/mm3 (150-450); RBC Distribution Width CV 13.2 % (11.6-14.6); RBC Distribution Width SD 47.7 fl (35.1-43.9); Red Blood Count 3.78 M/mm3 (4.6-6.2); White Blood Count 4.8 K/mm3 (4.4-11.0)
[2019-11-09 03:59] LABS: Anion Gap 4 (5-15); BUN 14 mg/dL (7-18); BUN/Creat Ratio 15.4 RATIO (10-20); Calcium,Total 8.1 mg/dL (8.5-10.1); Chloride 101 mmol/L (98-107); Creatinine, Serum 0.91 mg/dL (0.70-1.30); EST Glomerular Filtration Rate 88 mL/min (>60); Est Glom Filt Rate - Afr Amer 107 mL/min (>60); Estimated Creatinine Clearance 79.11 ml/min; Glucose 168 mg/dL (74-106); Potassium 4.1 mmol/L (3.5-5.1); Sodium Level 137 mmol/L (136-145)
--- NOTE | 2019-11-09 05:55 | EKG12_ITS ---
Test Reason : AM EKG Blood Pressure : / mmHG Vent. Rate : 061 BPM Atrial Rate : 061 BPM P-R Int : 272 ms QRS Dur : 124 ms QT Int : 480 ms P-R-T Axes : 000 -20 097 degrees QTc Int : 483 ms Atrial-paced rhythm with prolonged AV conduction ST & T wave abnormality, consider anterior ischemia Abnormal ECG When compared with ECG of 08-NOV-2019 21:53, MANUAL COMPARISON REQUIRED, DATA IS UNCONFIRMED Confirmed by PADILLA GUALLPA, CALI ([id number]), editor producer NADINE FERRER ([id number]) on 11/15/2019 12:42:03 PM Referred By: DR MATHIS Confirmed By:CALI CAUSEY MD
[2019-11-09] MEDS: Clopidogrel Bisulfate 75 MG Tablet PO (06:00)
[2019-11-09] MEDS: Aspirin E.C. 81 MG Tablet PO (06:00)
[2019-11-09 06:06] LABS: Bedside Glucose 192 mg/dL (70-110)
--- NOTE | 2019-11-09 08:39 | CT_ITS ---
STUDY: CT BRAIN WITHOUT CONTRAST REASON FOR EXAM: Male, 69 years old. Speech difficulty, hypertension, diabetes, prior CVA, seizures. RADIATION DOSAGE (If Supplied By Facility): CTDIvol = ( 44.99 ) mGy, DLP = ( 829.85 ) mGycm TECHNIQUE: Transaxial CT imaging of the brain was performed without administration of intravenous contrast material. Individualized dose optimization techniques were used for this CT. COMPARISON: Comparison is made with prior examination dated 01/08/2019. FINDINGS: Normal soft tissue structures. Normal calvarium. There is mild cerebral atrophy with widening of the extra-axial spaces and ventricular dilatation. There are areas of decreased attenuation within the white matter tracts of the supratentorial brain, consistent with microvascular disease changes. Normal basal ganglia and thalami. Normal brainstem. Normal cerebellum. There is no intracranial hemorrhage. There are no findings of an acute ischemic infarction. Normal visualized paranasal sinuses. CT/Brain/Head without Contrast IMPRESSION: Chronic involutional changes of the brain. Electronically Signed: Mick García, at 9:36 EDT , Service support ,
--- NOTE | 2019-11-09 09:42 | TELEMED_ITS ---
[facility] has confirmed receipt of a request for visit. This document confirms receipt of the order initiating the consult. To find the results of the consultation, please view the patient's reports for the scanned Telemed Consult.
--- NOTE | 2019-11-09 11:20 | CT_ITS ---
STUDY: CTA HEAD AND NECK WITH CONTRAST REASON FOR EXAM: Male, 69 years old. NEURO DEFICIT RADIATION DOSAGE (If Supplied By Facility): CTDIvol = ( 22.38 ) mGy, DLP = ( 728.83 ) mGycm TECHNIQUE: CT angiography was performed with a multi-detector CT scanner. Data acquisition was obtained from the skull base through the vertex following intravenous administration of IV 100mL [id number]-[id number]. MIP images were reconstructed from the axial data set. Post-processing of the angiographic images was performed, with multiplanar reformation and 3D reconstruction. Individualized dose optimization techniques were used for this CT. COMPARISON: No relevant priors. FINDINGS: Normal bilateral petrous carotid arteries. There is calcified plaque formation of the right cavernous carotid artery, without a cross-sectional luminal stenosis. There is calcified plaque formation of the left cavernous carotid artery, without a cross-sectional luminal stenosis. Normal right A1 segments of the anterior cerebral artery. Normal left A1 segments of the anterior cerebral artery. Normal intact anterior communicating artery (ACOM). Normal bilateral A2 segments of the anterior cerebral arteries. Normal right M1 and M2 segments of the middle cerebral arteries, with a normal M1 bifurcation. Normal left M1 and M2 segments of the middle cerebral arteries, with a normal M1 bifurcation. Normal right posterior communicating artery (PCOM). Normal left posterior communicating artery (PCOM). Normal bilateral vertebral arteries. Normal basilar artery with a normal basilar bifurcation. The visualized bilateral superior cerebellar (SCA) arteries are normal. Normal bilateral P1, P2 and visualized P3 segments of the posterior cerebral arteries. There is no demonstrated aneurysm of the [place]. There is no demonstrated abnormality of the visualized brain. Prior CABG. AORTIC ARCH: There is atherosclerotic calcific plaque formation of the aortic arch and great vessels arising from the aortic arch, without a hemodynamically significant stenosis. There is a normal origin of the brachiocephalic, left common carotid, and left subclavian arteries. Atherosclerotic calcification at the origin of the great vessels of the neck. RIGHT CAROTID ARTERIES: Normal right common carotid artery (CCA). Normal right common carotid bulb. There is mild atherosclerotic plaque formation of the origin of the right internal carotid artery with less than 50% cross sectional diameter stenosis. Normal visualized cervical portion of the right internal carotid artery. Normal origin of the right external carotid artery (ECA). LEFT CAROTID ARTERIES: Normal left common carotid artery (CCA). Normal left common carotid bulb. There is mild atherosclerotic plaque formation of the origin of the left internal carotid artery with less than 50% cross sectional diameter stenosis. Normal visualized cervical portion of the left internal carotid artery. Normal origin of the left external carotid artery (ECA). VERTEBRAL ARTERIES: Normal bilateral vertebral arteries. CT/CTA Head AND Neck W/ Contrast IMPRESSION: Calcific plaques at the origin of both the right and left internal carotid arteries with less than 50% narrowing. This is slightly worse on the left side. Electronically Signed: Mick García, at 12:11 EDT , Service support ,
[2019-11-09] MEDS: Carvedilol 12.5 MG Tablet PO ×2 (11:59→21:00)
[2019-11-09] MEDS: Ranolazine 500 MG Tablet 1000 MG PO ×2 (11:59→21:00)
[2019-11-09] MEDS: Escitalopram Oxalate 10 MG Tablet PO (12:00)
[2019-11-09] MEDS: Pantoprazole Sodium 40 MG Tablet PO (12:00)
[2019-11-09] MEDS: Furosemide 20 MG Tablet PO (12:00)
[2019-11-09] MEDS: Finasteride 5 MG Tablet PO (12:00)
[2019-11-09] MEDS: Multivitamins,Ther W-Minerals Tablet 1 TABLET PO (12:00)
[2019-11-09] MEDS: Insulin Lispro 100 UNIT/ML INSULN.PEN SC ×2 (12:09→18:21)
[2019-11-09 12:31] LABS: Bedside Glucose 294 mg/dL (70-110)
--- NOTE | 2019-11-09 13:48 | PCM.PN.HOSP ---
<Sridhar Mullins - Last Filed: 11/09/19 13:48> Reason for Visit: chest pain, aphasia Subjective: Pt woke up this AM with worsening of chronic aphasia. His states his speech is much different from baseline, normally she can understand everything he says. He can articulate that he has chest tightness bilaterally. He also has generalized pain all over. He appears to understand questions but most of his words are unintelligible. Vitals/I&O's: Vital Signs Temp Pulse Resp BP Pulse Ox 98.1 F 69 18 117/57 L 97 11/09/19 12:00 11/09/19 12:00 11/09/19 12:00 11/09/19 12:00 11/09/19 12:00 Oxygen Flow Rate (L/min) 3.5 Oxygen Delivery Method Nasal Cannula Weight: 247 lb 12.793 oz Body Mass Index (BMI) 35.5 Finger Stick Blood Glucose 138 Intake and Output for Last 24 Hours 11/07/19 11/08/19 11/09/19 23:59 23:59 23:59 Intake Total 240 / 240 210 / 210 Output Total 150 / 150 500 / 500 Balance 90 / 90 -290 / -290 General: Alert, Oriented x3, Cooperative HEENT: Atraumatic, PERRLA, EOMI, Normocephalic Neck: Supple, No JVD, Negative Carotid Bruits Lungs: Clear to auscultation, Normal air movement Cardiovascular: Regular rate, No murmurs Abdomen: Bowel Sounds Present, Soft, Non Tender Extremities: No edema, Capillary Refill Less than 3 Seconds Skin: No rashes, No breakdown Musculoskeletal: No Tenderness to Palpation of Joints or Extremities Neurological: - - aphasia Psych/Mental Status: Normal Affect, Appropriate, Alert and oriented to time, place, person, mood and affect Laboratory Results 11/08/19 17:40: WBC 5.0, RBC 4.02 L, Hgb 13.5, Hct 39.3 L, MCV 97.8 H, MCH 33.6 H, MCHC 34.4, RDW Std Deviation 46.5 H, RDW Coeff of Cinda 13.1, Plt Count 151, MPV 9.6, Immature Gran % (Auto) 0.400, Neut % (Auto) 65.4, Lymph % (Auto) 22.1, [place] % (Auto) 8.9, Eos % (Auto) 2.6, Baso % (Auto) 0.6, Absolute Neuts (auto) 3.3, Absolute Lymphs (auto) 1.11, Nucleated RBC % 0 11/08/19 17:40: Sodium 141, Potassium 4.2, Chloride 103, Carbon Dioxide 33.0 H, Anion Gap 5, BUN 11, Creatinine 0.91, Estim Creat Clear Calc 79.11, Est GFR (MDRD) Af Amer 106, Est GFR (MDRD) Non-Af 88, BUN/Creatinine Ratio 12.1, Glucose 125 H, Calcium 8.6, Magnesium 2.0, Troponin I < 0.015 11/08/19 17:40: B-Natriuretic Peptide 44.4 11/08/19 21:00: Troponin I < 0.015 11/08/19 22:53: POC Glucose 153 H 11/08/19 23:25: Troponin I 0.058 H 11/09/19 03:24: WBC 4.8, RBC 3.78 L, Hgb 12.8 L, Hct 37.5 L, MCV 99.2 H, MCH 33.9 H, MCHC 34.1, RDW Std Deviation 47.7 H, RDW Coeff of Cinda 13.2, Plt Count 132 L, MPV 10.2, Immature Gran % (Auto) 0.200, Neut % (Auto) 62.0, Lymph % (Auto) 27.3, [place] % (Auto) 6.6, Eos % (Auto) 3.7, Baso % (Auto) 0.2, Absolute Neuts (auto) 3.0, Absolute Lymphs (auto) 1.32, Nucleated RBC % 0 11/09/19 03:24: Sodium 137, Potassium 4.1, Chloride 101, Carbon Dioxide 32.0, Anion Gap 4 L, BUN 14, Creatinine 0.91, Estim Creat Clear Calc 79.11, Est GFR (MDRD) Af Amer 107, Est GFR (MDRD) Non-Af 88, BUN/Creatinine Ratio 15.4, Glucose 168 H, Calcium 8.1 L 11/09/19 03:24: Troponin I < 0.015 11/09/19 05:51: POC Glucose 192 H 11/09/19 11:56: POC Glucose 294 H Current Medications Acetaminophen (Tylenol) 650 mg PO Q6H PRN PRN PRN Reason: Mild pain 1-3/Temp > 100.7 F Aspirin (Ecotrin) 81 mg PO DAILY@0800 [facility] Last Admin: 11/09/19 06:00 Dose: 81 mg Documented by: Atorvastatin Calcium (Lipitor) 80 mg PO QHS [facility] Last Admin: 11/08/19 23:03 Dose: 80 mg Documented by: Carvedilol (Coreg) 12.5 mg PO BID [facility] Last Admin: 11/09/19 11:59 Dose: 12.5 mg Documented by: Cholecalciferol (Vitamin D (25mcg)) 3,000 unit PO DAILYCM [facility] Last Admin: 11/09/19 12:00 Dose: 3,000 unit Documented by: Clopidogrel Bisulfate (Plavix) 75 mg PO DAILY [facility] Last Admin: 11/09/19 06:00 Dose: 75 mg Documented by: Dextrose (D50w Syringe) 0 gm IV X1 PRN; Protocol PRN Reason: Hypoglycemia Diclofenac Sodium (Voltaren) 4 gm TP BID PRN PRN PRN Reason: right knee pain (1-10) Enoxaparin Sodium (Lovenox) 40 mg SC DAILY [facility] Last Admin: 11/09/19 12:03 Dose: Not Given Documented by: Escitalopram Oxalate (Lexapro) 10 mg PO DAILY [facility] Last Admin: 11/09/19 12:00 Dose: 10 mg Documented by: Finasteride (Proscar) 5 mg PO DAILY [facility] Last Admin: 11/09/19 12:00 Dose: 5 mg Documented by: Furosemide (Lasix) 20 mg PO DAILY [facility] Last Admin: 11/09/19 12:00 Dose: 20 mg Documented by: Glucagon () 1 mg IM .X1 PRN PRN Reason: Hypoglycemia Guaifenesin (Robitussin) 10 ml PO TID PRN PRN PRN Reason: COUGH Last Admin: 11/09/19 02:59 Dose: 10 ml Documented by: Insulin Human Lispro (Humalog Kwikpen ([facility])) 0 unit SC Q6 [facility]; Protocol Last Admin: 11/09/19 12:09 Dose: 6 u Documented by: Insulin Human Regular (Humulin R U-500 (Bk)) 195 units SC BREAKFAST [facility] Last Admin: 11/09/19 11:57 Dose: Not Given Documented by: Insulin Human Regular (Humulin R U-500 ([facility])) 195 units SC DINNER [facility] Morphine Sulfate () 2 mg IV Q3H PRN PRN PRN Reason: Pain Score 6-10/10 Multivitamins/Minerals (Multivitamin With Minerals ([facility])) [facility] Last Admin: 11/09/19 12:00 Dose: 1 tablet Documented by: Nitroglycerin (Nitrostat) 0.4 mg SUBLINGUAL Q5M PRN PRN Reason: CHEST Non-Formulary Medication (Ketoconazole [Nizoral]) 1 applicatio TP DAILY [facility] Ondansetron HCl (Zofran) 4 mg IV Q8H PRN PRN PRN Reason: NAUSEA/VOMITING Pantoprazole Sodium ([facility]ix) [facility] Last Admin: 11/09/19 12:00 Dose: 40 mg Documented by: Ranolazine (Ranexa) 1,000 mg PO BID [facility] Last Admin: 11/09/19 11:59 Dose: 1,000 mg Documented by: Sodium Chloride () 10 - 40 ml IV UD PRN PRN Reason: SALINE FLUSH Last Admin: 11/09/19 11:59 Dose: 10 ml Documented by: Tamsulosin HCl (Flomax) 0.8 mg PO QHS [facility] Last Admin: 11/08/19 23:03 Dose: 0.8 mg Documented by: STROKE Vital Signs/Narrative: Vital Signs Temp Pulse Resp BP Pulse Ox 11/09/19 12:00 98.1 F 69 18 117/57 L 97 11/09/19 11:00 74 Medical Necessity - Tobacco Use Smoking Status: Former smoker Tobacco Use: Cigarettes, Cigars Assessment/Plan All Active Problems (Last Updated 03/12/19 @ 07:25 by Loyda Panda) History of coronary artery stent placement (Resolved) H/O coronary artery bypass surgery (Resolved) Chest pain (Acute) CONI (acute kidney injury) (Acute) Abnormal EKG (Acute) Chest wall contusion (Acute) Atypical chest pain (Acute) 1. Aphasia - worsening of chronic. CT brain negative. MRI cannot be obtained due to pacemaker. CTA head and neck without marked stenosis. Neuro consulted - repeat CT brain tomorrow. Continue aspirin / statin/ plavix. monitor for afib. 2. Chest pain in the setting of CAD with prior CABG, stents - 2nd trop was indeterminate. ongoing CP. Cardiology consulted. stress test in february of this year was negative. Pacer check ordered. [facility]. BNP negative. -Continue aspirin, statin, plavix, ranexa, coreg 3. Mild thrombocytopenia - repeat CBC in AM. 4. Hx CVA - care as above 5. Chronic hypoxic resp failure - at baseline - 3lpm 6. EKATERINA - bipap qhs 7. DMt2 - on heavy doses of insulin. continue home dose plus SSI. So far glucose is relatively stable 8. BPH - flomax, proscar DVT ppx: lovenox This patient was seen by Sridhar Mullins PA-C under the supervision of Dr. Cheek. <Mando Cheek - Last Filed: 11/09/19 16:07> Subjective: Patient is admitted with chest pain but he woke up the same with garbled speech. Patient is speech is not understandable and incomprehensible. As mentioned above is much different from patient's baseline which he had mild aphasia from previous stroke. Objective: Physical exam General: Alert, Oriented x3, Cooperative HEENT: Atraumatic, PERRLA, EOMI, Normocephalic Oral: No Gingival or Mucosal Lesions/ Ulcerations Neck: Supple, No JVD, Negative Carotid Bruits Lungs: Air entry diminished in bilateral lung bases. No crepitation/rhonchi Cardiovascular: Regular rate, Regular Rhythm, Normal S1, Normal S2, No murmurs Abdomen: Bowel Sounds Present, Soft, Non Tender, Non-Distended : No renal angle tenderness. No suprapubic tenderness. Extremities: No edema. Capillary Refill Less than 3 Seconds Skin: No rashes, No breakdown Musculoskeletal: No Tenderness to Palpation of Joints or Extremities Neurological: Deep Tendon Reflexes 2+/4 and Symmetrical, I NIH stroke scale 6. Partial hemianopia. Left-sided weakness. Severe dysarthria Psych/Mental Status: Normal Affect, Appropriate. Vitals/I&O's: Vital Signs Temp Pulse Resp BP Pulse Ox 97.6 F L 60 18 131/61 H 98 11/09/19 14:00 11/09/19 14:00 11/09/19 14:00 11/09/19 14:11/09/19 14:00 Oxygen Flow Rate (L/min) 3 Oxygen Delivery Method Nasal Cannula Weight: 247 lb 12.793 oz Body Mass Index (BMI) 35.5 Finger Stick Blood Glucose 138 Intake and Output for Last 24 Hours 11/07/19 11/08/19 11/09/19 23:59 23:59 23:59 Intake Total 240 / 240 210 / 210 Output Total 150 / 150 500 / 500 Balance 90 / 90 -290 / -290 Laboratory Results 11/08/19 17:40: WBC 5.0, RBC 4.02 L, Hgb 13.5, Hct 39.3 L, MCV 97.8 H, MCH 33.6 H, MCHC 34.4, RDW Std Deviation 46.5 H, RDW Coeff of Cinda 13.1, Plt Count 151, MPV 9.6, Immature Gran % (Auto) 0.400, Neut % (Auto) 65.4, Lymph % (Auto) 22.1, [place] % (Auto) 8.9, Eos % (Auto) 2.6, Baso % (Auto) 0.6, Absolute Neuts (auto) 3.3, Absolute Lymphs (auto) 1.11, Nucleated RBC % 0 11/08/19 17:40: Sodium 141, Potassium 4.2, Chloride 103, Carbon Dioxide 33.0 H, Anion Gap 5, BUN 11, Creatinine 0.91, Estim Creat Clear Calc 79.11, Est GFR (MDRD) Af Amer 106, Est GFR (MDRD) Non-Af 88, BUN/Creatinine Ratio 12.1, Glucose 125 H, Calcium 8.6, Magnesium 2.0, Troponin I < 0.015 11/08/19 17:40: B-Natriuretic Peptide 44.4 11/08/19 21:00: Troponin I < 0.015 11/08/19 22:53: POC Glucose 153 H 11/08/19 23:25: Troponin I 0.058 H 11/09/19 03:24: WBC 4.8, RBC 3.78 L, Hgb 12.8 L, Hct 37.5 L, MCV 99.2 H, MCH 33.9 H, MCHC 34.1, RDW Std Deviation 47.7 H, RDW Coeff of Cinda 13.2, Plt Count 132 L, MPV 10.2, Immature Gran % (Auto) 0.200, Neut % (Auto) 62.0, Lymph % (Auto) 27.3, [place] % (Auto) 6.6, Eos % (Auto) 3.7, Baso % (Auto) 0.2, Absolute Neuts (auto) 3.0, Absolute Lymphs (auto) 1.32, Nucleated RBC % 0 11/09/19 03:24: Sodium 137, Potassium 4.1, Chloride 101, Carbon Dioxide 32.0, Anion Gap 4 L, BUN 14, Creatinine 0.91, Estim Creat Clear Calc 79.11, Est GFR (MDRD) Af Amer 107, Est GFR (MDRD) Non-Af 88, BUN/Creatinine Ratio 15.4, Glucose 168 H, Calcium 8.1 L 11/09/19 03:24: Troponin I < 0.015 11/09/19 05:51: POC Glucose 192 H 11/09/19 11:56: POC Glucose 294 H Current Medications Acetaminophen (Tylenol) 650 mg PO Q6H PRN PRN PRN Reason: Mild pain 1-3/Temp > 100.7 F Aspirin (Ecotrin) 81 mg PO DAILY@0800 [facility] Last Admin: 11/09/19 06:00 Dose: 81 mg Documented by: Atorvastatin Calcium (Lipitor) 80 mg PO QHS [facility] Last Admin: 11/08/19 23:03 Dose: 80 mg Documented by: Carvedilol (Coreg) 12.5 mg PO BID [facility] Last Admin: 11/09/19 11:59 Dose: 12.5 mg Documented by: Cholecalciferol (Vitamin D (25mcg)) 3,000 unit PO DAILYCM [facility] Last Admin: 11/09/19 12:00 Dose: 3,000 unit Documented by: Clopidogrel Bisulfate (Plavix) 75 mg PO DAILY [facility] Last Admin: 11/09/19 06:00 Dose: 75 mg Documented by: Dextrose (D50w Syringe) 0 gm IV X1 PRN; Protocol PRN Reason: Hypoglycemia Diclofenac Sodium (Voltaren) 4 gm TP BID PRN PRN PRN Reason: right knee pain (1-10) Enoxaparin Sodium (Lovenox) 40 mg SC DAILY [facility] Last Admin: 11/09/19 12:03 Dose: Not Given Documented by: Escitalopram Oxalate (Lexapro) 10 mg PO DAILY [facility] Last Admin: 11/09/19 12:00 Dose: 10 mg Documented by: Finasteride (Proscar) 5 mg PO DAILY [facility] Last Admin: 11/09/19 12:00 Dose: 5 mg Documented by: Furosemide (Lasix) 20 mg PO DAILY [facility] Last Admin: 11/09/19 12:00 Dose: 20 mg Documented by: Glucagon () 1 mg IM .X1 PRN PRN Reason: Hypoglycemia Guaifenesin (Robitussin) 10 ml PO TID PRN PRN PRN Reason: COUGH Last Admin: 11/09/19 14:22 Dose: 10 ml Documented by: Insulin Human Lispro (Humalog Kwikpen ([facility])) 0 unit SC Q6 [facility]; Protocol Last Admin: 11/09/19 12:09 Dose: 6 u Documented by: Insulin Human Regular (Humulin R U-500 ([facility])) 195 units SC BREAKFAST [facility] Last Admin: 11/09/19 11:57 Dose: Not Given Documented by: Insulin Human Regular (Humulin R U-500 ([facility])) 195 units SC DINNER [facility] Morphine Sulfate () 2 mg IV Q3H PRN PRN PRN Reason: Pain Score 6-10/10 Last Admin: 11/09/19 14:23 Dose: 2 mg Documented by: Multivitamins/Minerals (Multivitamin With Minerals ([facility])) [facility] Last Admin: 11/09/19 12:00 Dose: 1 tablet Documented by: Nitroglycerin (Nitrostat) 0.4 mg SUBLINGUAL Q5M PRN PRN Reason: CHEST Ondansetron HCl (Zofran) 4 mg IV Q8H PRN PRN PRN Reason: NAUSEA/VOMITING Last Admin: 11/09/19 15:15 Dose: 4 mg Documented by: Pantoprazole Sodium (Protonix) [facility] Last Admin: 11/09/19 12:00 Dose: 40 mg Documented by: Ranolazine (Ranexa) 1,000 mg PO BID [facility] Last Admin: 11/09/19 11:59 Dose: 1,000 mg Documented by: Sodium Chloride () 10 - 40 ml IV UD PRN PRN Reason: SALINE FLUSH Last Admin: 11/09/19 15:15 Dose: 10 ml Documented by: Tamsulosin HCl (Flomax) 0.8 mg PO QHS [facility] Last Admin: 11/08/19 23:03 Dose: 0.8 mg Documented by: STROKE Vital Signs/Narrative: Vital Signs Temp Pulse Resp BP Pulse Ox 11/09/19 14:00 97.6 F L 60 18 131/61 H 98 11/09/19 12:00 98.1 F 69 18 117/57 L 97 Assessment/Plan This patient was seen in conjunction with Sridhar MÉNDEZ. I have independently interviewed and examined the patient and reviewed pertinent history, examination findings, laboratory and plan of management. I have reviewed the note and agree with the documented findings with the few additional points. In brief, patient is 69-year-old question gentleman with multiple comorbidities including coronary artery disease status post CABG and previous stroke was admitted with chest pain which more like tightness in his upper chest and mild shortness of breath. In the morning today, there is worsening of speech with aphasia, dysarthria and therefore CTA of the head and neck was done. Patient has a pacemaker and body artist shows paced rhythm. CTA head and neck shows less than 50% calcific plaques at origin of both right and left ICA, with slight worsening on the left. CT head no acute change. Pacemaker is not MRI compatible. Obtain follow-up CT brain after 24 hours. Pacemaker interrogation. Continue aspirin, Plavix and high-dose statin therapy. PT OT and speech evaluation. Employment Program Representative is also consulted for chest pain with history of coronary artery disease status post stents and CABG. 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 Patient is on Coreg, Ranexa and a statin along with aspirin Plavix. He is allergic to ACEI/ARB Her comorbidities as mentioned above. Chronic hypoxic respiratory failure on 3 L of oxygen. I have discussed my assessment with Sridhar MÉNDEZ and orders have been reviewed. Inpatient E&M: 68468 Subs Hosp L2
--- NOTE | 2019-11-09 14:02 | CON.PCM_ITS ---
Problem List (1) Chest pain Status: Acute Qualifiers: Chest pain type: unspecified Qualified Code(s): R07.9 - Chest pain, unspecified (2) CAD (coronary artery disease) Status: Chronic Qualifiers: Coronary Disease-Associated Artery/Lesion type: [place] artery [place] vs. transplanted heart: [place] heart (3) History of coronary artery stent placement Status: Resolved Comment: Previously placed stent has an instent 85 % restenosis followed by subtotal occlusion per [facility] 02/2017 (4) H/O coronary artery bypass surgery Status: Resolved Comment: CABG x 4 MASON-LAD, SVG-D1, SVG-OM2, SVG-RCA (5) History of permanent cardiac pacemaker placement Status: Chronic Comment: 2001 (6) Hyperlipidemia Status: Chronic Qualifiers: Hyperlipidemia type: unspecified Qualified Code(s): E78.5 - Hyperlipidemia, unspecified (7) Essential (primary) hypertension Status: Chronic (8) DM type 2 (diabetes mellitus, type 2) Status: Chronic Qualifiers: Diabetes mellitus penitentiary insulin use: with intermediate designer use Diabetes mellitus complication status: with unspecified complications (9) CVA (cerebral vascular accident) Status: Chronic Qualifiers: CVA mechanism: unspecified Qualified Code(s): I63.9 - Cerebral infarction, unspecified Comment: Residual left-sided weakness (10) EKATERINA (obstructive sleep apnea) Status: Chronic Reason for Consult Date of Consultation: 11/09/19 History of Present Illness: The patient is a 69 year oldhzi-laar-kns white male with a past cardiovascular history which was included CAD, PCI, CABG, permanent pacemaker placement, hyperlipidemia, hypertension, superimposed upon diabetes mellitus, EKATERINA, and 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 He has complained of total body discomfort and total body numbness-more prominent on the left side-as he has complained in the past. He states he has not only chest discomfort but total body discomfort. He was being evaluated for concerns of his discomfort. He had 2 troponin I levels which were negative. A third troponin I level was indeterminate and a fourth troponin I level was negative. He had ECGs that demonstrated both sinus and atrial paced rhythms with nonspecific IVCD and nonspecific ST and T wave changes. In the midst of his evaluation he was reported by his spouse to have an exacerbation of his chronic a aphasia. This raised concern of a possible acute on chronic neurologic event. He has been evaluated by neurology who is recommended continued medical therapy and follow-up CT scans of the brain to evaluate for any other acute changes. He is not a candidate for MRI studies as he has a permanent pacemaker in place which is not reported as MRI compatible. He has undergone noninvasive and invasive cardiovascular evaluation in the past locally and at the [facility]. 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 At the present time he complains of his total body discomforts and numbness. He does not complain of any acute orthopnea or PND. There is been no worsening peripheral pitting edema. There has been no report of classic syncopal events. Again he continues with his chronic neurologic issues which reportedly was exacerbated/worsened. [] Past Medical History Allergies/Adverse Reactions: Allergies ezetimibe Allergy (Verified 11/08/19 17:31) Unknown Fish Containing Products Allergy (Verified 11/08/19 17:31) Unknown glyburide Allergy (Verified 11/08/19 17:31) Unknown isosorbide Allergy (Verified 11/08/19 18:40) PT UNSURE OF REACTION lisinopril Allergy (Verified 11/08/19 17:31) Unknown metformin Allergy (Verified 11/08/19 17:31) Nausea metoprolol Allergy (Verified 11/08/19 17:31) Unknown simvastatin Allergy (Verified 11/08/19 17:31) Unknown Home Medications: Ambulatory Orders Medication Instructions Recorded Aspirin E.C. [Ecotrin] 81 mg PO DAILY@0800 06/11/18 Atorvastatin Calcium [Lipitor] 80 mg PO QHS 06/11/18 Cholecalciferol (VIT D3) [Vitamin 3,000 units PO DAILY 06/11/18 D3] Clopidogrel Bisulfate [Clopidogrel] 75 mg PO DAILY 06/11/18 Escitalopram Oxalate [Lexapro] 10 mg PO DAILY 06/11/18 Finasteride [Proscar] 5 mg PO DAILY 06/11/18 Furosemide [Lasix] 20 mg PO DAILY 06/11/18 Insulin Regular, Human [Humulin R 195 unit SQ BREAKFAST 06/11/18 U-500 Kwikpen] Insulin Regular, Human [Humulin R 195 unit SQ DINNER 06/11/18 U-500 Kwikpen] Multivitamins,Ther W-Minerals 1 tablet PO DAILY 06/11/18 [Multivitamin With Minerals (BKC)] Pantoprazole Sodium 40 mg PO BIDCM 06/11/18 Ranolazine [Ranexa] 1,000 mg PO BID 06/11/18 Tamsulosin HCl [Flomax] 0.8 mg PO QHS 06/11/18 Acetaminophen [Tylenol Tablet] 650 mg PO Q6H PRN PRN tablet 06/21/18 Nitroglycerin (INPATIENT USE) 0.4 mg SUBLINGUAL Q5M PRN #30 07/22/18 [Nitrostat] tablet Carvedilol [Coreg] 12.5 mg PO BID 12/03/18 Diclofenac Sodium [Diclo Gel] 4 gm TP BID PRN PRN 11/08/19 Guaifenesin 10 ml PO TID PRN PRN 11/08/19 Ketoconazole [Nizoral] 1 applicatio TP DAILY 11/08/19 Past Medical History (Chronic Problems): Chronic Problems (Last Updated 03/12/19 @ 07:25 by Loyda Panda) CAD (coronary artery disease) (Chronic) History of permanent cardiac pacemaker placement (Chronic 09/10/11) 2001 Atherosclerotic heart disease [place] coronary artery w/angina pectoris (Chronic) Cardiac catheterization 02/24/2017?normal LV size should not, EF 55%, [place] multivessel CAD, patent SVG to diagonal 1, OM 2, and RCA, MASON to LAD previously reported as atretic/nonfunctional (not reevaluated at that time), advised medical therapy Essential (primary) hypertension (Chronic) EKATERINA (obstructive sleep apnea) (Chronic) Left-sided weakness (Chronic) Hyperlipidemia (Chronic) Obesity (Chronic) Chronic respiratory failure (Chronic) baseline 3L continuously DM type 2 (diabetes mellitus, type 2) (Chronic) Obstructive sleep apnea (Chronic) Seizure (Chronic) Aphasia (Chronic) CVA (cerebral vascular accident) (Chronic) Residual left-sided weakness Surgical History: angioplasty, coronary bypass surgery, pacemaker implantation, - - cabg,cholecystectemy, hernia, left knee, 4 stents Psychiatric History: Depression - *Family History Maternal History Items: Heart Disease Paternal History Items: - - Patient does not know his paternal family history. Lives: Spouse/ Significant Other Smoking Status: Former smoker Tobacco Use: Cigarettes, Cigars Review of Systems - Review of Systems Cardiovascular: Reports: Chest Discomfort. Denies: Shortness of Breath, Orthopnea, PND, Peripheral Edema, Palpitations, Lightheadedness, Dizziness, Near Syncope, Syncope Respiratory: Denies: Cough, Sputum Production, Hemoptysis Gastrointestinal: Denies: Hematemesis, Hematochezia, Melena Genitourinary: Denies: Dysuria, Hematuria Subjectve: Is a 69-year-old white male who appears to be resting comfortably at this time watching television in no acute distress. Objective: Vital Signs Temp Pulse Resp BP Pulse Ox 98.1 F 69 18 117/57 L 97 11/09/19 12:00 11/09/19 12:00 11/09/19 12:00 11/09/19 12:00 11/09/19 12:00 Oxygen Flow Rate (L/min) 3.5 Oxygen Delivery Method Nasal Cannula Weight: 247 lb 12.793 oz Body Mass Index (BMI) 35.5 Finger Stick Blood Glucose 138 Intake and Output for Last 24 Hours 11/07/19 11/08/19 11/09/19 23:59 23:59 23:59 Intake Total 240 / 240 210 / 210 Output Total 150 / 150 500 / 500 Balance 90 / 90 -290 / -290 General: Awake, Alert, Oriented x 3, Cooperative, No Acute Distress, Obese HEENT: Atraumatic, Normocephalic, PERRL, EOMI, Sclera Non Icteric Neck: Supple, Good ROM Chest Wall: Midline Sternotomy Incision Lungs: Clear to auscultation Cardiovascular: Regular Rhythm, Normal S1, Normal S2 Abdomen: Bowel Sounds Present, Soft Extremities: No edema Neurological: Slurred Speech Psych/Mental Status: Appropriate 11/08/19 17:40: WBC 5.0, RBC 4.02 L, Hgb 13.5, Hct 39.3 L, MCV 97.8 H, MCH 33.6 H, MCHC 34.4, Plt Count 151, MPV 9.6, Immature Gran % (Auto) 0.400, Neut % (Auto) 65.4, Lymph % (Auto) 22.1, [place] % (Auto) 8.9, Eos % (Auto) 2.6, Baso % (Auto) 0.6, Absolute Neuts (auto) 3.3, Nucleated RBC % 0 11/08/19 17:40: Sodium 141, Potassium 4.2, Chloride 103, Carbon Dioxide 33.0 H, Anion Gap 5, BUN 11, Creatinine 0.91, Est GFR (MDRD) Af Amer 106, Est GFR (MDRD) Non-Af 88, BUN/Creatinine Ratio 12.1, Glucose 125 H, Calcium 8.6, Magnesium 2.0, Troponin I < 0.015 11/08/19 17:40: B-Natriuretic Peptide 44.4 11/08/19 21:00: Troponin I < 0.015 11/08/19 23:25: Troponin I 0.058 H 11/09/19 03:24: WBC 4.8, RBC 3.78 L, Hgb 12.8 L, Hct 37.5 L, MCV 99.2 H, MCH 33.9 H, MCHC 34.1, Plt Count 132 L, MPV 10.2, Immature Gran % (Auto) 0.200, Neut % (Auto) 62.0, Lymph % (Auto) 27.3, Atlantic % (Auto) 6.6, Eos % (Auto) 3.7, Baso % (Auto) 0.2, Absolute Neuts (auto) 3.0, Nucleated RBC % 0 11/09/19 03:24: Sodium 137, Potassium 4.1, Chloride 101, Carbon Dioxide 32.0, Anion Gap 4 L, BUN 14, Creatinine 0.91, Est GFR (MDRD) Af Amer 107, Est GFR (MDRD) Non-Af 88, BUN/Creatinine Ratio 15.4, Glucose 168 H, Calcium 8.1 L 11/09/19 03:24: Troponin I < 0.015 Rhythm: Sinus/atrial paced rhythm EKG: As noted above ECHO: 02/23/2017 Interpretation Summary Normal LV size. Left ventricular systolic function is normal. The estimated ejection fraction is 55 %. Mild (1+) tricuspid valve insufficiency. Pulmonary artery systolic pressure is 28 mmHg. Contrast injection was performed. Stress Test:. 03/12/2019 Stress Test Report Pharmacologic myocardial perfusion stress test. 68-year-old man with previous history of coronary artery disease. Stress protocol: Resting EKG demonstrates normal sinus rhythm with a rate of 60 bpm first-degree AV block. Resting blood pressure is 108/72 mmHg. 0.4 mg of regadenoson was infused per usual protocol followed Intravenous saline flush injection continuous EKG monitoring was performed. The maximum heart rate attained was 73 bpm which was 48% maximum predicted heart rate the maximum workload was 1 metabolic equivalent. At rest nonspecific ST-T wave changes were noted at peak infusion nonspecific ST-T wave changes were noted. The resting blood pressures 180/72 final blood pressure was 124/62. Myocardial perfusion protocol. 15.0 mCi of technetium 99m sestamibi was injected at rest. 0.4 mg of regadenoson was infused per usual protocol peak infusion 45.0 mCi of technetium 99m sestamibi was injected stress images were obtained stress and rest images were reconstructed and compared in the short axis vertical and horizontal long axis. Gated images were also obtained Perfusion SPECT analysis: Review of the stress images demonstrate normal uptake of tracer noted in all areas of the myocardium, except for the inferior wall with reduced perfusion. The resting images similar demonstrate normal uptake of tracer noted in all areas. There is some reduction noted in the inferior wall which is likely GI attenuation artifact. No obvious ischemia is noted. Gated SPECT analysis: The gated ejection fraction is 54%. Conclusion: Pharmacologic myocardial perfusion stress test with no obvious evidence of ischemia. Preserved ejection fraction. Cardiac Cath: 02/24/2017 CONCLUSIONS Elevated Left Ventricular End Diastolic Pressure Normal LV size, wall motion,and systolic function LVEF: by LV gram 55 % [place] Multivessel CAD MASON to the LAD: previously reported as atretic and nonfunctional (not reevaluated during this procedure) SVG to the Dx 1: patent SVG to the OM 2: patent SVG to the RCA: patent RECOMMENDATIONS Risk factor modification Medical therapy DESCRIPTION OF PROCEDURE The patient arrived to the procedure lab. The risks and benefits of the proc edure as well as a full description of our services here and current unavailability of surgical backup were fully explained to the patient and/or their significant other prior to the catheterization. The Timeout was completed, verifying the correct patient and procedure. The patient's procedural site was prepped and draped in the usual fashion. Local anesthetic was given subcutaneously to right groin region with Lidocaine 2%. Using a modified Seldinger technique, arterial access was obtained via the right femoral artery, a 4Fr sheath was inserted Left Coronary Artery selective angiography was performed in multiple views using a 4 Fr. JL4 catheter. Right Coronary Artery selective angiography was then performed in multiple views using a 4 Fr. JR4 catheter. Saphenous Vein graft to the RCA selective angiography was performed in multiple views using a 4 Fr. JR4 catheter. Saphenous Vein graft to the DIAG 1 selective angiography was performed in multiple views using a 4 Fr. JR4 catheter. Saphenous Vein graft to the OM 1 selective angiography was performed in multiple views using a 4 Fr. JR4 catheter. Left Ventriculography was performed in THAO projection using a 4 Fr. Pigtail catheter. LV to AO pullback pressures were then recorded.The arterial sheath was pulled and manual compression applied until hemostasis is achieved. CORONARY ANGIOGRAPHY DOMINANCE: Right Dominant LEFT HEART ASSESSMENT Left Ventricular Ejection Fraction: by LV Gram 55 % Normal LV wall motion Elevated Left Ventricular End Diastolic Pressure LVEDP: 24 mmHg LEFT MAIN: Eccentric: 10-25 % Stenosis LEFT ANTERIOR DECENDING ARTERY: PROX LAD: Mild luminal irregularities MID LAD: is subtotally occluded with the mid to distal vessel filling via the SVG to the Dx branch with no angiographically significant appearing disease in the mid to distal segments DIAGONAL 1: Mid - filling from the SVG graft with no angiographically significant disease distal to the graft attachment CIRCUMFLEX ARTERY: PROX CIRC: Previously placed stent has an instent 85 % restenosis followed by subtotal occlusion DISTAL CIRC: 50 % Stenosis OM 2: Mid - filling from the SVG graft with no angiographically significant appearing disease distal to the graft attachment and also filling via retrograde fashion the distal LCX RAMUS: Mild luminal irregularities RIGHT CORONARY ARTERY: PROX RCA: is occluded DISTAL RCA: system filling from the SVG graft with no angiographically significant appearing disease distal to the graft attachment GRAFTS: MASON graft to the LAD is previously reported as atretic and nonfunctional (not reevaluated during this procedure) Saphenous Vein graft to the 1st Diagonal is patent Saphenous Vein graft to the 2nd OM is patent Saphenous Vein graft to the RCA is patent VALVE FINDINGS: Normal Aortic Valve function Normal Mitral Valve function AORTIC ROOT: Angiographically normal CT Surgery: 10-06-2008: [facility]: [place], [place]: MASON to the LAD, SVG to the diagonal branch, SVG to the OM, SVG to the RCA PPM: [place] AkaRx: [employer]iggins: Model number: [id number]: Serial number: [id number]: Date implanted: 09-10-2011: Device: Dual-chamber pacemaker CXR: Preliminary evaluation: Post open heart surgery changes: Please see official report Assessment/Plan 1. CAD status post PCI and CABG The patient has a history of coronary artery revascularization both percutaneously and surgically as noted. The patient has had concerns of not only chest but chronic body discomfort as well as not only left-sided but chronic body numbness . The patient has been undergoing evaluation. His third troponin I level was indeterminate with the first 2 and the fourth 1 being completely negative. His ECG is demonstrated no acute ECG changes. He is undergone noninvasive evaluation earlier this year as noted and previous noninvasive and invasive evaluation in the past. At the present time it is not clear that his isolated indeterminate troponin represents an acute coronary syndrome. There would be concerns especially in the midst of a report that his chronic neurologic condition worsened with respect to his a fascia, etc., that this isolated indeterminate troponin could b e related to an underlying neurologic event. At the moment, from a cardiac standpoint, it is recommended that the patient continue medical therapy. There are no immediate plans for additional noninv asive and invasive evaluation at this time noting concerns of a potential acute on chronic neurologic event. The patient is being followed by neurology. He is due for a follow-up CT scan of the brain. If the patient's clinical course and/or other findings suggest the need for further cardiovascular evaluation then it may be reasonable, especially noting the patient's underlying neurologic issue, to proceed with a noninvasive study initially such as a follow-up pharmacologic stress nuclear imaging study to evaluate for any obvious evidence of significant stress-induced myocardial ischemia that would warrant a repeat invasive evaluation such as a diagnostic cardiac catheterization-which would not be recommended, barring an urgent emergent event, in the midst of an ongoing neurologic issue. 2. Permanent pacemaker The patient does have a permanent pacemaker. A remote pacemaker interrogation was performed. According to information from the [facility] staff the report was that the pacemaker was functioning appropriately. The patient is due to follow-up with his [facility] cardiology team at the beginning of November. He states this is to include a formal pacemaker interrogation. 3. Hyperlipidemia The patient should continue medical management for risk factor modification. 4. Hypertension The patient's blood pressure should be followed and his medications adjusted as needed to minimize his cardiovascular risks. 5. Diabetes mellitus The patient will continue evaluation care per internal medicine. 6. CVA There is concerns based upon the patient's spouse reporting that his expressive a aphasia was much worse thus raising concerns of the possibility of an acute on chronic neurologic event. The patient is being evaluated by neurology. Again there may be concerns that his isolated indeterminant troponin I level could be related to a change in his neurologic status. Based upon the neurologic concerns, as noted above, unless the patient has a change in his cardiovascular clinical course both symptomatically or otherwise objectively it would be reasonable to pursue his neurologic issues at this time and hold on pursuing additional cardiovascular testing. 7. Obstructive sleep apnea The patient will continue evaluation care with his CPAP device. For all, at the present time, the patient will continue conservative cardiovascular management. He will pursue his neurologic evaluation and care. Depending upon his future clinical case he may or may not need additional cardiovascular studies and depending upon his clinical course such studies would have to be considered as to what is appropriate to be performed at [facility] versus at a tertiary care center such as the [facility] where he receives his ongoing cardiology care. Comment: The patient's case has been asked and reviewed with the patient. This note was generated using a voice recognition system and there may be incorrect words, spelling or punctuation that were not noted when reviewing the office note prior to saving.
[2019-11-09] MEDS: Morphine 2 MG/ML Syringe IV ×3 (14:23→23:36)
[2019-11-09] MEDS: Ondansetron 4 MG/2 ML Vial IV (15:15)
[2019-11-09 17:20] LABS: Bedside Glucose 271 mg/dL (70-110)
[2019-11-09] MEDS: Atorvastatin Calcium 80 MG Tablet PO (21:00)
[2019-11-09] MEDS: Tamsulosin HCl 0.4 MG Capsule 0.8 MG PO (21:00)
[2019-11-10 00:26] LABS: Bedside Glucose 91 mg/dL (70-110)
[2019-11-10 03:00] VITALS: PULSE 60
[2019-11-10 03:30] VITALS: BP 122/67; PULSE 64; RESP 18; TEMP 37; O2SAT 94
[2019-11-10 03:51] LABS: Bedside Glucose 73 mg/dL (70-110)
[2019-11-10 04:52] VITALS: BMI 35.5
[2019-11-10 05:19] LABS: Absolute Lymphocyte Count 1.04 X10^3/uL (0.83-4.51); Absolute Neutrophil Count 3.3 X10^3/uL (2.0-7.7); Basophil# 0.01 X10^3/uL; Basophil% 0.2 % (0-1); Eosinophil# 0.15 X10^3/uL; Eosinophils% 3.1 % (0-5); Hematocrit 37.1 % (40-54); Hemoglobin 12.7 g/dL (13.0-16.5); Lymphocyte # 1.04 X10^3/ul (4.0); Lymphocyte % 21.4 % (19-41); Mean Corp Hgb Conc 34.2 g/dL (32-36); Mean Corpuscular Hgb 33.5 pg (27.0-32.0); Mean Corpuscular Volume 97.9 fL (80-94); Mean Platelet Vol. 10.2 fl (6.2-12.0); Monocyte% 8.2 % (0-10); NRBC Flagged by Analyzer 0 % (0-5); Neutrophil # 3.25 X10^3/uL (2.7-7.7); Neutrophil % 66.9 % (47-70); Platelet Count 134 K/mm3 (150-450); RBC Distribution Width CV 12.9 % (11.6-14.6); RBC Distribution Width SD 45.9 fl (35.1-43.9); Red Blood Count 3.79 M/mm3 (4.6-6.2); White Blood Count 4.9 K/mm3 (4.4-11.0)
[2019-11-10 05:32] LABS: Anion Gap 5 (5-15); BUN 18 mg/dL (7-18); BUN/Creat Ratio 19.6 RATIO (10-20); Calcium,Total 8.3 mg/dL (8.5-10.1); Chloride 98 mmol/L (98-107); Creatinine, Serum 0.92 mg/dL (0.70-1.30); EST Glomerular Filtration Rate 87 mL/min (>60); Est Glom Filt Rate - Afr Amer 105 mL/min (>60); Estimated Creatinine Clearance 78.25 ml/min; Glucose 115 mg/dL (74-106); Potassium 4.1 mmol/L (3.5-5.1); Sodium Level 136 mmol/L (136-145)
[2019-11-10 06:40] LABS: Bedside Glucose 116 mg/dL (70-110)
[2019-11-10 06:43] VITALS: PULSE 62
[2019-11-10 07:12] VITALS: BMI 35.5
[2019-11-10 07:27] VITALS: O2SAT 97
[2019-11-10 07:31] VITALS: BP 131/64; PULSE 64; RESP 12; TEMP 36.6; O2SAT 97
[2019-11-10] MEDS: Multivitamins,Ther W-Minerals Tablet 1 TABLET PO (07:49)
[2019-11-10] MEDS: Aspirin E.C. 81 MG Tablet PO (07:49)
[2019-11-10] MEDS: Pantoprazole Sodium 40 MG Tablet PO (07:49)
[2019-11-10] MEDS: Acetaminophen 325 MG Tablet 650 MG PO (07:50)
--- NOTE | 2019-11-10 08:58 | CT_ITS ---
STUDY: CT BRAIN WITHOUT CONTRAST REASON FOR EXAM: Male, 69 years old. SPEECH DIFFICULTY -- 24 HOUR FOLLOW UP RADIATION DOSAGE (If Supplied By Facility): CTDIvol = ( 44.99 ) mGy, DLP = ( 812.98 ) mGycm TECHNIQUE: Transaxial CT imaging of the brain was performed without administration of intravenous contrast material. Individualized dose optimization techniques were used for this CT. COMPARISON: Comparison is made with prior study dated 11/09/2019 at 8:52 AM. FINDINGS: Normal soft tissue structures. Normal calvarium. There is mild cerebral atrophy with widening of the extra-axial spaces and ventricular dilatation. There are areas of decreased attenuation within the white matter tracts of the supratentorial brain, consistent with microvascular disease changes. Stable old subtle area of decreased attenuation in the left frontal lobe in comparison with the old ischemic change. Normal basal ganglia and thalami. Normal brainstem. Normal cerebellum. There is no intracranial hemorrhage. There are no findings of an acute ischemic infarction. Normal visualized paranasal sinuses. CT/Brain/Head without Contrast IMPRESSION: Chronic involutional changes of the brain. Electronically Signed: Mick García, at 9:52 EDT , Service support ,
[2019-11-10] MEDS: Morphine 2 MG/ML Syringe IV (09:30)
[2019-11-10] MEDS: Carvedilol 12.5 MG Tablet PO (09:31)
[2019-11-10] MEDS: Furosemide 20 MG Tablet PO (09:31)
[2019-11-10] MEDS: Escitalopram Oxalate 10 MG Tablet PO (09:32)
[2019-11-10] MEDS: Clopidogrel Bisulfate 75 MG Tablet PO (09:33)
[2019-11-10] MEDS: Finasteride 5 MG Tablet PO (09:33)
[2019-11-10] MEDS: Ranolazine 500 MG Tablet 1000 MG PO (09:34)
--- NOTE | 2019-11-10 09:49 | PCM.PN.CARD ---
Subjectve: The patient was examined earlier today. He was awake and alert. He was eating breakfast. He had no acute complaints. He still noted his chronic total body discomfort and numbness sensation-more prominent on the left side. Objective: Vital Signs Temp Pulse Resp BP Pulse Ox 97.8 F 64 12 131/64 H 97 11/10/19 07:31 11/10/19 07:31 11/10/19 07:31 11/10/19 07:31 11/10/19 07:31 Oxygen Flow Rate (L/min) 3 Oxygen Delivery Method Nasal Cannula Weight: 247 lb 12.793 oz Body Mass Index (BMI) 35.5 Finger Stick Blood Glucose 138 Intake and Output for Last 24 Hours 11/08/19 11/09/19 11/10/19 23:59 23:59 23:59 Intake Total 240 / 240 690 / 930 480 / 480 Output Total 150 / 150 1200 / 1700 750 / 750 Balance 90 / 90 -510 / -770 -270 / -270 General: Awake, Alert, Oriented x 3, Cooperative, Obese HEENT: Atraumatic, Normocephalic, PERRL, EOMI, Sclera Non Icteric Neck: Supple, Good ROM, No JVD Lungs: Clear to auscultation Cardiovascular: Regular Rhythm, Normal S1, Normal S2 Abdomen: Bowel Sounds Present, Soft Extremities: No edema Neurological: Slurred Speech Psych/Mental Status: Appropriate 11/10/19 05:10: WBC 4.9, RBC 3.79 L, Hgb 12.7 L, Hct 37.1 L, MCV 97.9 H, MCH 33.5 H, MCHC 34.2, Plt Count 134 L, MPV 10.2, Immature Gran % (Auto) 0.200, Neut % (Auto) 66.9, Lymph % (Auto) 21.4, [place] % (Auto) 8.2, Eos % (Auto) 3.1, Baso % (Auto) 0.2, Absolute Neuts (auto) 3.3, Nucleated RBC % 0 11/10/19 05:10: Sodium 136, Potassium 4.1, Chloride 98, Carbon Dioxide 33.0 H, Anion Gap 5, BUN 18, Creatinine 0.92, Est GFR (MDRD) Af Amer 105, Est GFR (MDRD) Non-Af 87, BUN/Creatinine Ratio 19.6, Glucose 115 H, Calcium 8.3 L Rhythm: Sinus rhythm/atrial paced rhythm Medical Necessity - Tobacco Use Smoking Status: Former smoker Tobacco Use: Cigarettes, Cigars Assessment/Plan 1. CAD status post PCI and CABG The patient has a history of coronary artery revascularization both percutaneously and surgically as noted. The patient has had concerns of not only chest but chronic body discomfort as well as not only left-sided but chronic body numbness . The patient has been undergoing evaluation. His third troponin I level was indeterminate with the first 2 and the fourth 1 being completely negative. His ECG is demonstrated no acute ECG changes. He is undergone noninvasive evaluation earlier this year as noted and previous noninvasive and invasive evaluation in the past. At the present time it is not clear that his isolated indeterminate troponin represents an acute coronary syndrome. There would be concerns especially in the midst of a report that his chronic neurologic condition worsened with respect to his a fascia, etc., that this isolated indeterminate troponin could be related to an underlying neurologic event. At the moment, from a cardiac standpoint, it is recommended that the patient continue medical therapy. There are no immediate plans for additional noninvasive and invasive evaluation at this time noting concerns of a potential acute on chronic neurologic event. The patient's is undergoing further evaluation with a repeat brain CT scan. The results are pending. If the patient's clinical course and/or other findings suggest the need for further cardiovascular evaluation then it may be reasonable, especially noting the patient's underlying neurologic issue, to proceed with a noninvasive study initially such as a follow-up pharmacologic stress nuclear imaging study to evaluate for any obvious evidence of significant stress-induced myocardial ischemia that would warrant a repeat invasive evaluation such as a diagnostic cardiac catheterization-which would not be recommended, barring an urgent emergent event, in the midst of an ongoing neurologic issue. 2. Permanent pacemaker The patient does have a permanent pacemaker. A remote pacemaker interrogation was performed. According to information from the [facility] staff the report was that the pacemaker was functioning appropriately. The patient is due to follow-up with his [facility] cardiology team at the beginning of November. He states this is to include a formal pacemaker interrogation. 3. Hyperlipidemia The patient should continue medical management for risk factor modification. 4. Hypertension The patient's blood pressure should be followed and his medications adjusted as needed to minimize his cardiovascular risks. 5. Diabetes mellitus The patient will continue evaluation care per internal medicine. 6. CVA There is concerns based upon the patient's spouse reporting that his expressive a aphasia was much worse thus raising concerns of the possibility of an acute on chronic neurologic event. The patient is being evaluated by neurology. Again there may be concerns that his isolated indeterminant troponin I level could be related to a change in his neurologic status. Based upon the neurologic concerns, as noted above, unless the patient has a change in his cardiovascular clinical course both symptomatically or otherwise objectively it would be reasonable to pursue his neurologic issues at this time and hold on pursuing additional cardiovascular testing. Thus, the patient is undergoing reevaluation with a repeat brain CT scan. This will need to be reevaluated by internal medicine and neurology. 7. Obstructive sleep apnea The patient will continue evaluation care with his CPAP device. Comment: The patient's case has been asked and reviewed with the patient. This note was generated using a voice recognition system and there may be incorrect words, spelling or punctuation that were not noted when reviewing the office note prior to saving.
--- NOTE | 2019-11-10 10:48 | DCINST_ITS ---
- Discharge Diagnoses Current Active Problems: Current Active and Chronic Problems (Last Updated 03/12/19 @ 07:25 by Loyda Panda) CAD (coronary artery disease) (Chronic) History of CVA with recurrent aphasia You will use the following diet at home:: Calorie/Carbohydrate Controlled (specify 1200, 1400, etc), Cardiac Discharge Activity: Return to Normal Activity Call your doctor if you observe: Shortness of breath, Dizziness, Fainting spells, Chest pain Allergies/Adverse Reactions: Allergies ezetimibe Allergy (Verified 11/08/19 17:31) Unknown Fish Containing Products Allergy (Verified 11/08/19 17:31) Unknown glyburide Allergy (Verified 11/08/19 17:31) Unknown isosorbide Allergy (Verified 11/08/19 18:40) PT UNSURE OF REACTION lisinopril Allergy (Verified 11/08/19 17:31) Unknown metformin Allergy (Verified 11/08/19 17:31) Nausea metoprolol Allergy (Verified 11/08/19 17:31) Unknown simvastatin Allergy (Verified 11/08/19 17:31) Unknown Medications to take at Discharge Aspirin E.C. [Ecotrin] 81 mg PO DAILY@0800 06/11/18 Atorvastatin Calcium [Lipitor] 80 mg PO QHS 06/11/18 Cholecalciferol (VIT D3) [Vitamin D3] 3,000 units PO DAILY 06/11/18 Clopidogrel Bisulfate [Clopidogrel] 75 mg PO DAILY 06/11/18 Escitalopram Oxalate [Lexapro] 10 mg PO DAILY 06/11/18 Finasteride [Proscar] 5 mg PO DAILY 06/11/18 Furosemide [Lasix] 20 mg PO DAILY 06/11/18 Insulin Regular, Human [Humulin R U-500 Kwikpen] 195 unit SQ BREAKFAST 06/11/18 Insulin Regular, Human [Humulin R U-500 Kwikpen] 195 unit SQ DINNER 06/11/18 Multivitamins,Ther W-Minerals [Multivitamin With Minerals (BKC)] 1 tablet PO DAILY 06/11/18 Pantoprazole Sodium 40 mg PO BIDCM 06/11/18 Ranolazine [Ranexa] 1,000 mg PO BID 06/11/18 Tamsulosin HCl [Flomax] 0.8 mg PO QHS 06/11/18 Acetaminophen [Tylenol Tablet] 650 mg PO Q6H PRN PRN tablet 06/21/18 Nitroglycerin (INPATIENT USE) [Nitrostat] 0.4 mg SUBLINGUAL Q5M PRN #30 tablet 07/22/18 Carvedilol [Coreg] 12.5 mg PO BID 12/03/18 Diclofenac Sodium [Diclo Gel] 4 gm TP BID PRN PRN 11/08/19 Guaifenesin 10 ml PO TID PRN PRN 11/08/19 Ketoconazole [Nizoral] 1 applicatio TP DAILY 11/08/19 [facility] [Primary [facility] Provider] - Please follow up with your Primary Care Physician in: 1 Week Test Results: Test results from this visit will be discussed in further detail at your follow- up appointment, if applicable. Please Follow Up With: [facility] When: 2 Weeks Please Follow Up With: [facility] When: 1 Week Proposed Discharge Date: 11/10/19
--- NOTE | 2019-11-10 11:00 | DS.PCM_ITS ---
<RiveraCandice DIRECTOR OF CHANNEL MARKETING - Last Filed: 11/10/19 11:13> Discharge Date and Diagnosis Date of Admission: 11/08/19 Date of Discharge: 11/10/19 - Primary Discharge Diagnosis Acute Problems: 1. Recurrent aphasia, history of CVA 2. Chest pain, ACS ruled out 3. CAD with history of CABG and stents 4. Chronic hypoxic respiratory failure 5. Type 2 diabetes mellitus 6. Hypertension 7. Hyperlipidemia 8. EKATERINA 9. BPH 10. History of seizure disorder 11. Anxiety/depression 12. Morbid obesity - Secondary Discharge Diagnosis Chronic Problems: Chronic Problems (Last Updated 03/12/19 @ 07:25 by Loyda Panda) CAD (coronary artery disease) (Chronic) History of permanent cardiac pacemaker placement (Chronic 09/10/11) 2001 Atherosclerotic heart disease [place] coronary artery w/angina pectoris (Chronic) Cardiac catheterization 02/24/2017?normal LV size should not, EF 55%, [place] multivessel CAD, patent SVG to diagonal 1, OM 2, and RCA, MASON to LAD previously reported as atretic/nonfunctional (not reevaluated at that time), advised medical therapy Essential (primary) hypertension (Chronic) EKATERINA (obstructive sleep apnea) (Chronic) Left-sided weakness (Chronic) Hyperlipidemia (Chronic) Obesity (Chronic) Chronic respiratory failure (Chronic) baseline 3L continuously DM type 2 (diabetes mellitus, type 2) (Chronic) Obstructive sleep apnea (Chronic) Seizure (Chronic) Aphasia (Chronic) CVA (cerebral vascular accident) (Chronic) Residual left-sided weakness Hospital Course and Treatment Imaging Results: Diagnostic Data Chest X-Ray 11/08/19 17:55 IMPRESSION: No acute thoracic pathology. Electronically Signed: Mark Canas, at 19:01 EDT Tel , Service support , Head/Neck CTA 11/09/19 11:20 IMPRESSION: Calcific plaques at the origin of both the right and left internal carotid arteries with less than 50% narrowing. This is slightly worse on the left side. Electronically Signed: Mick García, at 12:11 EDT , Service support , Brain CT 11/10/19 08:58 IMPRESSION: Chronic involutional changes of the brain. Electronically Signed: Mick García, at 9:52 EDT , Service support , [facility] [place]. Aponte- Cardiology Operations: None Procedures: None Summary of Care Provided: The patient is a 69 year old M admitted 11/08/2019 due to chest pain. 1. History of CVA with recurrent aphasia-unable to obtain MRI due to pacemaker. CTA of head and neck without significant stenosis. No evidence of A. fib on pacemaker interrogation. Repeat brain CT unremarkable. Continue aspirin, statin, Plavix. Continue outpatient pacemaker interrogation to evaluate for atrial fibrillation. Outpatient follow-up with neurology. 2. Chest pain, ACS ruled out-cardiology consulted due to indeterminate troponin. 1 out of 4 abnormal. Enzymes did not trend. No EKG changes. Continue medical management. Continue follow-up with [facility], patient has upcoming appointment early November. 3. CAD with history of CABG and stents-continue aspirin, statin, Plavix, carvedilol, Ranexa. 4. Chronic hypoxic respiratory failure-on baseline O2 requirements, 3 L nasal cannula continuously. 5. Type 2 diabetes mellitus-continue home insulin regimen. 6. Hypertension-stable, continue carvedilol, Lasix. 7. Hyperlipidemia-continue high-dose statin. 8. EKATERINA-continue home BiPAP regimen. 9. BPH-continue Flomax, proscar. 10. History of seizure disorder? Previously on Keppra. No longer taking. 11. Anxiety/depression-continue Lexapro. 12. Morbid obesity- encouraged diet and lifestyle modifications. Patient seen and examined prior to discharge. Physical assessment as noted below. Patient is stable for discharge with follow up recommendations as noted above. This patient was seen by KELLY Dyson under the supervision of Dr. Cheek. - Physical Exam Vitals/I&O's: Vital Signs Temp Pulse Resp BP Pulse Ox 97.8 F 64 12 131/64 H 97 11/10/19 07:31 11/10/19 07:31 11/10/19 07:31 11/10/19 07:31 11/10/19 07:31 Oxygen Flow Rate (L/min) 3 Oxygen Delivery Method Nasal Cannula Weight: 247 lb 12.793 oz Body Mass Index (BMI) 35.5 Finger Stick Blood Glucose 138 Intake and Output for Last 24 Hours 11/08/19 11/09/19 11/10/19 23:59 23:59 23:59 Intake Total 240 / 240 690 / 930 480 / 480 Output Total 150 / 150 1200 / 1700 750 / 750 Balance 90 / 90 -510 / -770 -270 / -270 General: Alert, Oriented x3, Cooperative HEENT: Atraumatic, PERRLA, EOMI, Normocephalic Neck: Supple, No JVD, Negative Carotid Bruits Lungs: Clear to auscultation, Diminished Cardiovascular: Regular rate, No murmurs Abdomen: Bowel Sounds Present, Soft, Non Tender, Non-Distended, Obese Extremities: No clubbing, No cyanosis, No edema Skin: No rashes, No breakdown Musculoskeletal: No Tenderness to Palpation of Joints or Extremities Neurological: Cranial nerves II-XII grossly intact, Neuro grossly intact Psych/Mental Status: Normal Affect, Appropriate Laboratory Results 11/09/19 11:56: POC Glucose 294 H 11/09/19 17:14: POC Glucose 271 H 11/09/19 23:44: POC Glucose 91 11/10/19 03:43: POC Glucose 73 11/10/19 05:10: WBC 4.9, RBC 3.79 L, Hgb 12.7 L, Hct 37.1 L, MCV 97.9 H, MCH 33.5 H, MCHC 34.2, RDW Std Deviation 45.9 H, RDW Coeff of Cinda 12.9, Plt Count 134 L, MPV 10.2, Immature Gran % (Auto) 0.200, Neut % (Auto) 66.9, Lymph % (Auto) 21.4, [place] % (Auto) 8.2, Eos % (Auto) 3.1, Baso % (Auto) 0.2, Absolute Ne uts (auto) 3.3, Absolute Lymphs (auto) 1.04, Nucleated RBC % 0 11/10/19 05:10: Sodium 136, Potassium 4.1, Chloride 98, Carbon Dioxide 33.0 H, Anion Gap 5, BUN 18, Creatinine 0.92, Estim Creat Clear Calc 78.25, Est GFR (MDRD) Af Amer 105, Est GFR (MDRD) Non-Af 87, BUN/Creatinine Ratio 19.6, Glucose 115 H, Calcium 8.3 L 11/10/19 06:16: POC Glucose 116 H Current Medications Acetaminophen (Tylenol) 650 mg PO Q6H PRN PRN PRN Reason: Mild pain 1-3/Temp > 100.7 F Last Admin: 11/10/19 07:50 Dose: 650 mg Documented by: Aspirin (Ecotrin) 81 mg PO DAILY@0800 [facility] Last Admin: 11/10/19 07:49 Dose: 81 mg Documented by: Atorvastatin Calcium (Lipitor) 80 mg PO QHS [facility] Last Admin: 11/09/19 21:00 Dose: 80 mg Documented by: Carvedilol (Coreg) 12.5 mg PO BID [facility] Last Admin: 11/10/19 09:31 Dose: 12.5 mg Documented by: Cholecalciferol (Vitamin D (25mcg)) 3,000 unit PO DAILYCM [facility] Last Admin: 11/10/19 07:49 Dose: 3,000 unit Documented by: Clopidogrel Bisulfate (Plavix) 75 mg PO DAILY [facility] Last Admin: 11/10/19 09:33 Dose: 75 mg Documented by: Dextrose (D50w Syringe) 0 gm IV X1 PRN; Protocol PRN Reason: Hypoglycemia Diclofenac Sodium (Voltaren) 4 gm TP BID PRN PRN PRN Reason: right knee pain (1-10) Enoxaparin Sodium (Lovenox) 40 mg SC DAILY [facility] Last Admin: 11/10/19 09:37 Dose: Not Given Documented by: Escitalopram Oxalate (Lexapro) 10 mg PO DAILY [facility] Last Admin: 11/10/19 09:32 Dose: 10 mg Documented by: Finasteride (Proscar) 5 mg PO DAILY [facility] Last Admin: 11/10/19 09:33 Dose: 5 mg Documented by: Furosemide (Lasix) 20 mg PO DAILY [facility] Last Admin: 11/10/19 09:31 Dose: 20 mg Documented by: Glucagon () 1 mg IM .X1 PRN PRN Reason: Hypoglycemia Guaifenesin (Robitussin) 10 ml PO TID PRN PRN PRN Reason: COUGH Last Admin: 11/09/19 21:02 Dose: 10 ml Documented by: Insulin Human Lispro (Humalog Kwgagepen (Bkc)) 0 unit SC Q6 [facility]; Protocol Last Admin: 11/10/19 06:19 Dose: Not Given Documented by: Insulin Human Regular (Humulin R U-500 ([facility])) 195 units SC BREAKFAST [facility] Last Admin: 11/10/19 07:51 Dose: 195 u Documented by: Insulin Human Regular (Humulin R U-500 ([facility])) 195 units SC DINNER [facility] Last Admin: 11/09/19 17:25 Dose: 195 u Documented by: Morphine Sulfate () 2 mg IV Q3H PRN PRN PRN Reason: Pain Score 6-10/10 Last Admin: 11/10/19 09:30 Dose: 2 mg Documented by: Multivitamins/Minerals (Multivitamin With Minerals ([facility])) [facility] Last Admin: 11/10/19 07:49 Dose: 1 tablet Documented by: Nitroglycerin (Nitrostat) 0.4 mg SUBLINGUAL Q5M PRN PRN Reason: CHEST Ondansetron HCl (Zofran) 4 mg IV Q8H PRN PRN PRN Reason: NAUSEA/VOMITING Last Admin: 11/09/19 15:15 Dose: 4 mg Documented by: Pantoprazole Sodium (Protonix) [facility] Last Admin: 11/10/19 07:49 Dose: 40 mg Documented by: Ranolazine (Ranexa) 1,000 mg PO BID [facility] Last Admin: 11/10/19 09:34 Dose: 1,000 mg Documented by: Sodium Chloride () 10 - 40 ml IV UD PRN PRN Reason: SALINE FLUSH Last Admin: 11/09/19 23:41 Dose: 10 ml Documented by: Tamsulosin HCl (Flomax) 0.8 mg PO QHS [facility] Last Admin: 11/09/19 21:00 Dose: 0.8 mg Documented by: Discharge Diet: Low fat/ Low Cholesterol, Carb Control Diet Discharge Activity: Return to Normal Activity Call your doctor if you observe: Shortness of breath, Dizziness, Fainting spells, Chest pain Home Medications: Medications to take at Discharge Aspirin E.C. [Ecotrin] 81 mg PO DAILY@0800 06/11/18 Atorvastatin Calcium [Lipitor] 80 mg PO QHS 06/11/18 Cholecalciferol (VIT D3) [Vitamin D3] 3,000 units PO DAILY 06/11/18 Clopidogrel Bisulfate [Clopidogrel] 75 mg PO DAILY 06/11/18 Escitalopram Oxalate [Lexapro] 10 mg PO DAILY 06/11/18 Finasteride [Proscar] 5 mg PO DAILY 06/11/18 Furosemide [Lasix] 20 mg PO DAILY 06/11/18 Insulin Regular, Human [Humulin R U-500 Kwikpen] 195 unit SQ BREAKFAST 06/11/18 Insulin Regular, Human [Humulin R U-500 Kwikpen] 195 unit SQ DINNER 06/11/18 Multivitamins,Ther W-Minerals [Multivitamin With Minerals (BKC)] 1 tablet PO DAILY 06/11/18 Pantoprazole Sodium 40 mg PO BIDCM 06/11/18 Ranolazine [Ranexa] 1,000 mg PO BID 06/11/18 Tamsulosin HCl [Flomax] 0.8 mg PO QHS 06/11/18 Acetaminophen [Tylenol Tablet] 650 mg PO Q6H PRN PRN tablet 06/21/18 Nitroglycerin (INPATIENT USE) [Nitrostat] 0.4 mg SUBLINGUAL Q5M PRN #30 tablet 07/22/18 Carvedilol [Coreg] 12.5 mg PO BID 12/03/18 Diclofenac Sodium [Diclo Gel] 4 gm TP BID PRN PRN 11/08/19 Guaifenesin 10 ml PO TID PRN PRN 11/08/19 Ketoconazole [Nizoral] 1 applicatio TP DAILY 11/08/19 [facility] [[facility] - Please follow up with your Primary Care Physician in: 1 Week Please Follow Up With: [facility] When: 2 Weeks Please Follow Up With: [facility] When: 1 Week Patient Instructions: Understanding Coronary Artery Disease (CAD), What Is High Blood Pressure? (JNC-7), ED Heart Disease Risk Factors Disposition: Home Minutes spent on discharge:: 35 Patient Condition:: Stable Medical Necessity - Tobacco Use Smoking Status: Former smoker Tobacco Use: Cigarettes, Cigars Meaningful Use Info Meaningful Use Diagnoses (Choose all that apply): None applicable <Mando Cheek - Last Filed: 11/10/19 15:44> Discharge Date and Diagnosis - Secondary Discharge Diagnosis Chronic Problems: Chronic Problems (Last Updated 03/12/19 @ 07:25 by Loyda Panda) CAD (coronary artery disease) (Chronic) History of permanent cardiac pacemaker placement (Chronic 09/10/11) 2001 Atherosclerotic heart disease [place] coronary artery w/angina pectoris (Chronic) Cardiac catheterization 02/24/2017?normal LV size should not, EF 55%, [place] multivessel CAD, patent SVG to diagonal 1, OM 2, and RCA, MASON to LAD previously reported as atretic/nonfunctional (not reevaluated at that time), advised medical therapy Essential (primary) hypertension (Chronic) EKATERINA (obstructive sleep apnea) (Chronic) Left-sided weakness (Chronic) Hyperlipidemia (Chronic) Obesity (Chronic) Chronic respiratory failure (Chronic) baseline 3L continuously DM type 2 (diabetes mellitus, type 2) (Chronic) Obstructive sleep apnea (Chronic) Seizure (Chronic) Aphasia (Chronic) CVA (cerebral vascular accident) (Chronic) Residual left-sided weakness Hospital Course and Treatment Imaging Results: 11/10/19 08:58 CT Brain [Brain/Head without Contrast] [CT] Urgent Summary of Care Provided: This patient was seen in conjunction with DIRECTOR OF CHANNEL MARKETING, Candice. I have independently interviewed and examined the patient and reviewed pertinent history, examination findings, laboratory and plan of management. I have reviewed the note and agree with the documented findings with the few additional points. In brief, patient is 69-year-old question gentleman with multiple comorbidities including coronary artery disease status post CABG and previous stroke was admitted with chest pain which more like tightness in his upper chest and mild shortness of breath. In the morning today, there is worsening of speech with aphasia, dysarthria and therefore CTA of the head and neck was done. Patient has a pacemaker and security guards dispatcher shows paced rhythm. CTA head and neck shows less than 50% calcific plaques at origin of both right and left ICA, with slight worsening on the left. CT head no acute change. Pacemaker is not MRI compatible. Repeat CT head did not show any change but same chronic and vascular changes. Pacemaker interrogation done it is functioning appropriately. Continue aspirin, Plavix and high-dose statin therapy. PT OT and speech evaluation was done. Embroidery Worker is also consulted for chest pain with history of coronary artery disease status post stents and CABG. 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 Patient is on Coreg, Ranexa and a statin along with aspirin Plavix. He is allergic to ACEI/ARB. No significant change in troponin. Only 1 out of 4 was abnormal. Acute coronary syndrome ruled out. He is comorbidities as mentioned above. Chronic hypoxic respiratory failure on 3 L of oxygen. Discharge medication reconciliation done. Discharge follow-up instructions completed. Discharge process discussed with the patient and all questions were answered to patient's satisfaction. Total time spent, exact 35 minutes on discharge meds reconciliation, examination, coordination of care with nurses and ancillary staff, review of imaging and blood test and discussion with the patient on follow-up instructions I have discussed my assessment with DIRECTOR OF CHANNEL MARKETINGCandice and orders have been reviewed. [] Objective: Patient blood pressure and heart rate is stable. There is not significant improvement in his speech. Speech is still garbled but little more comprehensive than yesterday. Physical exam General: Alert, Oriented x3, Cooperative HEENT: Atraumatic, PERRLA, EOMI, Normocephalic Oral: No Gingival or Mucosal Lesions/ Ulcerations Neck: Supple, No JVD, Negative Carotid Bruits Lungs: Air entry diminished in bilateral lung bases. No crepitation/rhonchi Cardiovascular: Regular rate, Regular Rhythm, Normal S1, Normal S2, No murmurs Abdomen: Bowel Sounds Present, Soft, Non Tender, Non-Distended : No renal angle tenderness. No suprapubic tenderness. Extremities: No edema. Capillary Refill Less than 3 Seconds Skin: No rashes, No breakdown Musculoskeletal: No Tenderness to Palpation of Joints or Extremities Neurological: Deep Tendon Reflexes 2+/4 and Symmetrical. Partial hemianopia. Left-sided weakness. Moderate to severe dysphagia. Severe dysarthria Psych/Mental Status: Normal Affect, Appropriate. - Physical Exam Vitals/I&O's: Vital Signs Temp Pulse Resp BP Pulse Ox 97.8 F 64 12 131/64 H 97 11/10/19 07:31 11/10/19 07:31 11/10/19 07:31 11/10/19 07:31 11/10/19 07:31 Oxygen Flow Rate (L/min) 4 Oxygen Delivery Method Nasal Cannula Weight: 247 lb 12.793 oz Body Mass Index (BMI) 35.5 Finger Stick Blood Glucose 138 Intake and Output for Last 24 Hours 11/08/19 11/09/19 11/10/19 23:59 23:59 23:59 Intake Total 240 / 240 690 / 930 480 / 480 Output Total 150 / 150 1200 / 1700 750 / 750 Balance 90 / 90 -510 / -770 -270 / -270 Laboratory Results 11/09/19 17:14: POC Glucose 271 H 11/09/19 23:44: POC Glucose 91 11/10/19 03:43: POC Glucose 73 11/10/19 05:10: WBC 4.9, RBC 3.79 L, Hgb 12.7 L, Hct 37.1 L, MCV 97.9 H, MCH 33.5 H, MCHC 34.2, RDW Std Deviation 45.9 H, RDW Coeff of Cinda 12.9, Plt Count 134 L, MPV 10.2, Immature Gran % (Auto) 0.200, Neut % (Auto) 66.9, Lymph % (Auto) 21.4, [place] % (Auto) 8.2, Eos % (Auto) 3.1, Baso % (Auto) 0.2, Absolute Neuts (auto) 3.3, Absolute Lymphs (auto) 1.04, Nucleated RBC % 0 11/10/19 05:10: Sodium 136, Potassium 4.1, Chloride 98, Carbon Dioxide 33.0 H, Anion Gap 5, BUN 18, Creatinine 0.92, Estim Creat Clear Calc 78.25, Est GFR (MDRD) Af Amer 105, Est GFR (MDRD) Non-Af 87, BUN/Creatinine Ratio 19.6, Glucose 115 H, Calcium 8.3 L 11/10/19 06:16: POC Glucose 116 H 11/10/19 11:12: POC Glucose 147 H Inpatient E&M: 68685 Disch Hosp
[2019-11-10 11:16] LABS: Bedside Glucose 147 mg/dL (70-110)
--- NOTE | 2019-11-10 11:41 | PHA.DC.MR ---
Pharmacy Service has performed discharge medication reconciliation for this patient. The patient's discharge medication list was reviewed for discrepancies and discrepancies were resolved. No changes in insulin U-500. Home Medications Aspirin E.C. [Ecotrin] 81 mg PO DAILY@0800 06/11/18 Atorvastatin Calcium [Lipitor] 80 mg PO QHS 06/11/18 Cholecalciferol (VIT D3) [Vitamin D3] 3,000 units PO DAILY 06/11/18 Clopidogrel Bisulfate [Clopidogrel] 75 mg PO DAILY 06/11/18 Escitalopram Oxalate [Lexapro] 10 mg PO DAILY 06/11/18 Finasteride [Proscar] 5 mg PO DAILY 06/11/18 Furosemide [Lasix] 20 mg PO DAILY 06/11/18 Insulin Regular, Human [Humulin R U-500 Kwikpen] 195 unit SQ BREAKFAST 06/11/18 Insulin Regular, Human [Humulin R U-500 Kwikpen] 195 unit SQ DINNER 06/11/18 Multivitamins,Ther W-Minerals [Multivitamin With Minerals (BKC)] 1 tablet PO DAILY 06/11/18 Pantoprazole Sodium 40 mg PO BIDCM 06/11/18 Ranolazine [Ranexa] 1,000 mg PO BID 06/11/18 Tamsulosin HCl [Flomax] 0.8 mg PO QHS 06/11/18 Acetaminophen [Tylenol Tablet] 650 mg PO Q6H PRN PRN tablet 06/21/18 Nitroglycerin (INPATIENT USE) [Nitrostat] 0.4 mg SUBLINGUAL Q5M PRN #30 tablet 07/22/18 Carvedilol [Coreg] 12.5 mg PO BID 12/03/18 Diclofenac Sodium [Diclo Gel] 4 gm TP BID PRN PRN 11/08/19 Guaifenesin 10 ml PO TID PRN PRN 11/08/19 Ketoconazole [Nizoral] 1 applicatio TP DAILY 11/08/19
--- NOTE | 2019-11-10 11:45 | CASEMGMT ---
KRISTI GERONIMO assessment: Face to Face with patient for initial transition planning/care coordination assessment. RN GRAZYNA introduced self and role at [facility], pt voices understanding and consents to assessment at this time. Pt is sitting up in chair in no distress at this time. Pt is hard of hearing. Pt is A/Ox4 at this time and answers all questions appropriately at this time. Pt's is at bedside during assessment. Care providers, pharmacy, and demographics verified at this time. Presentation: Pt c/o general weakness, CP, near syncope w/ fall Admitting dx: Chest pain PCP: [facility] Specialists: [facility] cardiology, endocrinology, podiatry Preferred Pharmacy: [facility] Insurance: [place]/[facility] A Prescription Benefit: [facility] Living Will/HPOA: Pt states is unsure if he has a LW/HPOA and declines AD info at this time. LNOK: Lucina Coello, Living Arrangements: Pt states lives with in 1 story home with 2 steps into garage and states no concerns at home at this time. Pt states is independent with ADL's. Transportation: Pt states drives and states no transportation concerns at this time. DME/HHC: Pt states has a power scooter, walker, cpap, and 3 liters nc. Pt states no need for any further DME at this time. Pt states has had HHC in the past and has been to [facility] in [place] in the past. Pt does state some concerns over previous bills between [facility] and [facility] and this RN GRAZYNA attempted to reach PFS without success at this time. Pt/ provided with contact info for [facility] PFS at this time, voices understanding and gratitude at this time. Pt states no concerns with going home at time of discharge. Pt states is retired. Pt states does not smoke cigarettes but does drink ETOH occasionally. Pt states no further concerns/needs at this time. CM to follow for any further discharge planning/needs. Advised pt to ask for CM if any further questions/concerns/needs arise, voices understanding. Pt Goal: Home Plan[place] KRISTI GERONIMO
== END 2019-11-10 13:01 | disposition home or self-care (01) | DRG 313 ==
LOC: ED 18:31 → PCU 19:30
PROVIDERS: Family Medicine; Physician Assistant; Admitting Provider Student in an Organized Health Care Education/Training Program; Emergency Provider Emergency Medicine; Visit Provider Internal Medicine
DX: R07.9 Chest pain, unspecified (principal); I69.354 Hemiplegia and hemiparesis following cerebral infarction affecting left non-dominant side; J96.11 Chronic respiratory failure with hypoxia; I69.320 Aphasia following cerebral infarction; I25.10 Atherosclerotic heart disease of native coronary artery without angina pectoris; E11.9 Type 2 diabetes mellitus without complications; I10 Essential (primary) hypertension; E78.5 Hyperlipidemia, unspecified; G47.33 Obstructive sleep apnea (adult) (pediatric); N40.0 Benign prostatic hyperplasia without lower urinary tract symptoms; G40.909 Epilepsy, unspecified, not intractable, without status epilepticus; I44.0 Atrioventricular block, first degree; F32.9 Major depressive disorder, single episode, unspecified; F41.9 Anxiety disorder, unspecified; D69.6 Thrombocytopenia, unspecified; E66.01 Morbid (severe) obesity due to excess calories; Z95.1 Presence of aortocoronary bypass graft; Z95.5 Presence of coronary angioplasty implant and graft; Z79.82 Long term (current) use of aspirin; Z79.02 Long term (current) use of antithrombotics/antiplatelets; Z79.899 Other long term (current) drug therapy; Z88.8 Allergy status to other drugs, medicaments and biological substances; Z95.0 Presence of cardiac pacemaker; Z79.4 Long term (current) use of insulin; Z68.36 Body mass index [BMI] 36.0-36.9, adult; I69.322 Dysarthria following cerebral infarction; Z87.891 Personal history of nicotine dependence
CPT/HCPCS: 36415; 70450; 70496; 70498; 71045; 80048; 82962; 83735; 83880; 84484; 85025; 93005; 94002; 94003; 97116; 97162; 97166; 97530; 99285; J7030; Q9967; A4216; J2405

== ENCOUNTER 2019-11-18 02:50 | Emergency (ER) | payer OTHER, SELFPAY ==
[2019-11-18 02:52] VITALS: BP 127/102; PULSE 63; RESP 18; TEMP 36.2; O2SAT 99; BMI 36.7
--- NOTE | 2019-11-18 02:59 | EKG12_ITS ---
Test Reason : SOB Blood Pressure : / mmHG Vent. Rate : 060 BPM Atrial Rate : 060 BPM P-R Int : 282 ms QRS Dur : 126 ms QT Int : 462 ms P-R-T Axes : 089 -15 095 degrees QTc Int : 462 ms Atrial-paced rhythm with prolonged AV conduction Non-specific intra-ventricular conduction block T wave abnormality, consider anterior ischemia Abnormal ECG Confirmed by BRYN GUALLPA, JULIO C ([id number]), online editor NADINE FERRER ([id number]) on 11/21/2019 2:45:53 PM Referred By: DR WADE Confirmed By:BELEN CLEMENTE MD
[2019-11-18 03:00] VITALS: BP 148/84; O2SAT 98
--- NOTE | 2019-11-18 03:00 | ED.VIS.GEN ---
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 Patient was recently admitted to the hospital just about 8 days ago. At that point, he was having the same pain. He underwent cardiology evaluation along with CTA. His cardiac enzymes are unremarkable. It was thought that he did not need any vascular intervention. His pain was controlled and he was discharged home. 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 He states they made no changes to his meds. He states that he is begun to have diffuse body pain and chest pain. This is very similar to his prior presentation. He is also had mild shortness of breath but states that that can be chronic for him. Prior similar symptoms: Yes Recent Illness/Hospitalization: Yes Past Medical History - Allergies and Home Meds Allergies/Adverse Reactions: Allergies ezetimibe Allergy (Verified 11/18/19 03:05) Unknown Fish Containing Products Allergy (Verified 11/18/19 03:05) Unknown glyburide Allergy (Verified 11/18/19 03:05) Unknown isosorbide Allergy (Verified 11/18/19 03:05) PT UNSURE OF REACTION lisinopril Allergy (Verified 11/18/19 03:05) Unknown metformin Allergy (Verified 11/18/19 03:05) Nausea metoprolol Allergy (Verified 11/18/19 03:05) Unknown simvastatin Allergy (Verified 11/18/19 03:05) Unknown Primary Care Physician: [facility] [Primary Care Provider] - Prior records reviewed: Yes Past Medical History: - - Coronary vascular disease, diabetes, hypertension, prior stroke Surgical History: angioplasty, coronary bypass surgery, pacemaker implantation, - - cabg,cholecystectemy, hernia, left knee, 4 stents Smoking Status: Former smoker - Family History Maternal Family History: Reports: Heart Disease Paternal Family History: Reports: - - Patient does not know his paternal family history. Review of Systems General: Denies: Chills, Fever, Sweats Eyes: Denies: Visual changes - bilaterally, Diplopia ENT: Denies: Rhinorrhea, Sore throat Cardiovascular: Reports: Chest pain. Denies: Palpitations Respiratory: Reports: Dyspnea. Denies: Cough, Dyspnea on exertion Gastrointestinal: Denies: Abdominal pain, Nausea, Vomiting, Diarrhea, Melena, Hematochezia Genitourinary: Denies: Dysuria, Hematuria, Frequency Musculoskeletal: Denies: Back pain, Extremity Pain Skin: Denies: Rash, Wounds Neurological: Denies: Headache, Weakness, Numbness Physical Exam Vital Signs/Narrative: Vital Signs Temp Pulse Resp BP Pulse Ox 11/18/19 02:52 97.2 F L 63 18 127/102 H 99 Inital Vital Signs reviewed: Yes General: Well nourished, Well developed, No Acute Distress Head: Normocephalic, Atraumatic Eyes: Perrl, EOMI ENT: Moist mucous membranes, No rhinorrhea Neck: Supple, Nontender Cardiovascular: Regular rate, Regular rhythm, No murmurs Respiratory: No distress, CTA bilaterally, Chest nontender Abdomen: Soft, Nontender, Nondistended, Normal bowel sounds Back: Nontender, Normal Inspection Extremities: Nontender, No edema Skin: Normal color, No rash Neurological: Alert, Oriented x3, Cranial nerves II-XII grossly intact, Normal Sensation, Weakness - [id number] Psychological: Normal affect, Normal Mood Diagnostic/Tx/Re-eval Clinical Impression(s) from Imaging Studies Chest X-Ray 11/18/19 03:18 IMPRESSION: No acute cardiopulmonary disease. Electronically Signed: Samir Pierce DO at 3:30 EDT Tel , Service support , Abnormal Lab Results 11/18/19 11/18/19 03:07 03:07 WBC 5.0 RBC 3.79 L Hgb 12.7 L Hct 37.2 L MCV 98.2 H MCH 33.5 H MCHC 34.1 RDW Std Deviation 46.4 H RDW Coeff of Cinda 13.0 Plt Count 122 L MPV 10.3 Immature Gran % (Auto) 0.200 Neut % (Auto) 60.6 Lymph % (Auto) 27.4 [place] % (Auto) 8.2 Eos % (Auto) 3.2 Baso % (Auto) 0.4 Absolute Neuts (auto) 3.0 Absolute Lymphs (auto) 1.36 Nucleated RBC % 0 Sodium 140 Potassium 3.7 Chloride 104 Carbon Dioxide 33.0 H Anion Gap 3 L BUN 18 Creatinine 0.88 Estim Creat Clear Calc 81.80 Est GFR (MDRD) Af Amer 110 Est GFR (MDRD) Non-Af 91 BUN/Creatinine Ratio 20.4 H Glucose 142 H Calcium 8.2 L Troponin I < 0.015 - Rhythm Strip Rhythm Strip: Sinus Rhythm Rate: 70 Ectopy: None - EKG Initial EKG Interpretation: Sinus Rhythm, Non-Specific ST Changes Prior: Unchanged - Medical Decision Making Patient presents with constant chest pain, cough without productive sputum, mild shortness of breath. He was recently admitted with chest pain. He was seen by cardiology and cleared. He was discharged home. He states he returned today because the pain was back. He describes it as tightness. He is had it for the past 12 hours. He had already taken nitro with little relief. He does have a scant wheeze that clears with cough. EKG was obtained which showed some nonspecific anterior changes, but unchanged from prior. He said the pain for greater than 12 hours. His cardiac enzymes are negative. My suspicion for acute coronary syndrome is very low given the patient's description and unremarkable work-up. Chest x-ray shows no pneumothorax, focal infiltrate, other dangerous process. Labs are at the patient's baseline. At this point, given his dyspnea and mild cough, I am going to treat him for a COPD exacerbation. He has no tachypnea or tachycardia. I do feel that he is safe for outpatient follow-up. Impression 1. COPD exacerbation ED Disposition - Plan for ED Patient: Instructions: ED COPD Flare Prescriptions: Prednisone [Deltasone] 40 mg PO DAILY #10 tab Prescription Printed Doxycycline 100 mg PO BID #20 cap Prescription Printed Referrals: [facility] [Primary Care Provider] -
[2019-11-18] MEDS: Aspirin 81 MG TAB.CHEW 324 MG PO (03:09)
[2019-11-18] MEDS: Morphine 4 MG/ML Syringe IV (03:10)
[2019-11-18 03:11] LABS: Absolute Lymphocyte Count 1.36 X10^3/uL (0.83-4.51); Basophil# 0.02 X10^3/uL; Basophil% 0.4 % (0-1); Eosinophil# 0.16 X10^3/uL; Eosinophils% 3.2 % (0-5); Hematocrit 37.2 % (40-54); Hemoglobin 12.7 g/dL (13.0-16.5); Lymphocyte # 1.36 X10^3/ul (4.0); Lymphocyte % 27.4 % (19-41); Mean Corp Hgb Conc 34.1 g/dL (32-36); Mean Corpuscular Hgb 33.5 pg (27.0-32.0); Mean Corpuscular Volume 98.2 fL (80-94); Mean Platelet Vol. 10.3 fl (6.2-12.0); Monocyte# 0.41 X10^3/uL; Monocyte% 8.2 % (0-10); NRBC Flagged by Analyzer 0 % (0-5); Neutrophil # 3.01 X10^3/uL (2.7-7.7); Neutrophil % 60.6 % (47-70); Platelet Count 122 K/mm3 (150-450); RBC Distribution Width SD 46.4 fl (35.1-43.9); Red Blood Count 3.79 M/mm3 (4.6-6.2)
--- NOTE | 2019-11-18 03:18 | RAD_ITS ---
STUDY: X-RAY CHEST REASON FOR EXAM: Male, 69 years old. CHEST PAIN, SOB AND DIZZINESS X 2 DAYS. TECHNIQUE: Single AP portable view of the chest. COMPARISON: 11/08/2019 FINDINGS: The lungs are clear and expanded. There is no demonstrated pleural abnormality. There is mild cardiac enlargement. Stable left chest wall pacing device. Stable mediastinal wires. Normal mediastinum and cata. Normal visualized pulmonary arteries. Normal visualized aortic arch and descending thoracic aorta. Normal visualized thoracic spine. Normal visualized ribs, clavicles, and shoulders. There is no demonstrated abnormality of the visualized soft tissue structures of the upper abdomen. RAD/Chest 1 View (Portable) IMPRESSION: No acute cardiopulmonary disease. Electronically Signed: Samir Pierce DO at 3:30 EDT Tel , Service support ,
[2019-11-18 03:28] LABS: Anion Gap 3 (5-15); BUN 18 mg/dL (7-18); BUN/Creat Ratio 20.4 RATIO (10-20); Calcium,Total 8.2 mg/dL (8.5-10.1); Chloride 104 mmol/L (98-107); Creatinine, Serum 0.88 mg/dL (0.70-1.30); EST Glomerular Filtration Rate 91 mL/min (>60); Est Glom Filt Rate - Afr Amer 110 mL/min (>60); Glucose 142 mg/dL (74-106); Potassium 3.7 mmol/L (3.5-5.1); Sodium Level 140 mmol/L (136-145)
[2019-11-18 03:42] VITALS: PULSE 69; RESP 18; O2SAT 98
[2019-11-18] MEDS: predniSONE 20 MG Tablet 60 MG PO (03:46)
[2019-11-18] MEDS: Doxycycline 100 MG CAPSULE PO (03:46)
== END 2019-11-18 03:51 | disposition home or self-care (01) ==
LOC: ED 03:18
PROVIDERS: Emergency Provider Emergency Medicine
DX: J44.1 Chronic obstructive pulmonary disease with (acute) exacerbation (principal); I69.320 Aphasia following cerebral infarction; E11.59 Type 2 diabetes mellitus with other circulatory complications; I10 Essential (primary) hypertension; Z95.1 Presence of aortocoronary bypass graft; Z95.0 Presence of cardiac pacemaker; Z87.891 Personal history of nicotine dependence; Z79.82 Long term (current) use of aspirin; Z79.4 Long term (current) use of insulin
CPT/HCPCS: 71045; 80048; 84484; 85025; 93005; 96374; 99285; A4216

== ENCOUNTER 2019-11-29 08:52 | Inpatient (IN) | payer OTHER, MEDICARE, SELFPAY ==
[2019-11-29] VITALS (20 sets, daily range): BP systolic 104–172; BP diastolic 57–95; PULSE 83–105; RESP 15–29; TEMP 36–39.5; O2SAT 92–99; BMI 35.9; BMI 35.6; BMI 35.7
--- NOTE | 2019-11-29 09:02 | RAD_ITS ---
STUDY: X-RAY CHEST REASON FOR EXAM: Male, 69 years old. Sob, chills TECHNIQUE: Single AP portable view of the chest. COMPARISON: Comparison is made with prior study dated 11/18/2019. FINDINGS: EKG electrodes are seen. Stable increased markings in the left upper lobe and left perihilar region. This may represent scarring. There is no demonstrated pleural abnormality. Sternal cerclage wires and vascular clips are present from a prior sternotomy and coronary artery bypass graft procedure (CABG). A left-sided dual-chamber pacemaker is seen. Normal mediastinum and cata. Normal visualized pulmonary arteries. Normal visualized aortic arch and descending thoracic aorta. Normal visualized thoracic spine. There is degenerative osteoarthritis of the bilateral shoulders. There is no demonstrated abnormality of the visualized soft tissue structures of the upper abdomen. RAD/Chest 1 View (Portable) IMPRESSION: Stable examination. Electronically Signed: Mick García, at 10:18 EDT , Service support ,
--- NOTE | 2019-11-29 09:03 | ED.DCSUM_ITS ---
History of Present Illness Chief Complaint: General Illness Informant: Patient Onset: Yesterday Context: Gradual Onset Timing: Continuous Current Severity: Moderate Maximum Severity: Moderate Narrative: The patient is a 69-year-old male with medical history significant for coronary vascular disease, hypertension, COPD, and prior stroke with residual left-sided deficit and components of aphasia that presents to the emergency department urinary frequency. The patient states that symptoms began last night. He states he is had significant increase in urinary frequency. He admits to some chills and myalgias but denies any fever. The patient does have history of prior complex UTI, gross hematuria, and prior bladder procedures. He is not definitively sure on the details of all of these. Patient has been on doxycycline recently. He denies any increase in chest pain. He denies nausea or vomiting. Prior similar symptoms: Yes Recent Illness/Hospitalization: No Past Medical History - Allergies and Home Meds Allergies/Adverse Reactions: Allergies ezetimibe Allergy (Verified 11/29/19 08:54) Unknown Fish Containing Products Allergy (Verified 11/29/19 08:54) Unknown glyburide Allergy (Verified 11/29/19 08:54) Unknown isosorbide Allergy (Verified 11/29/19 08:54) PT UNSURE OF REACTION lisinopril Allergy (Verified 11/29/19 08:54) Unknown metformin Allergy (Verified 11/29/19 08:54) Nausea metoprolol Allergy (Verified 11/29/19 08:54) Unknown simvastatin Allergy (Verified 11/29/19 08:54) Unknown Primary Care Physician: [facility],[place] [Primary Care Provider] - Prior records reviewed: Yes Past Medical History: - - Prior stroke, hypertension, hyperlipidemia, COPD Surgical History: angioplasty, coronary bypass surgery, pacemaker implantation, - - cabg,cholecystectemy, hernia, left knee, 4 stents Smoking Status: Former smoker - Family History Maternal Family History: Reports: Heart Disease Paternal Family History: Reports: - - Patient does not know his paternal family history. Review of Systems General: Reports: Chills, Malaise. Denies: Fever, Sweats Eyes: Denies: Visual changes - bilaterally, Diplopia ENT: Denies: Rhinorrhea, Sore throat Cardiovascular: Denies: Chest pain, Palpitations Respiratory: Denies: Dyspnea, Cough, Dyspnea on exertion Gastrointestinal: Reports: Nausea. Denies: Abdominal pain, Vomiting, Diarrhea, Melena, Hematochezia Genitourinary: Reports: Dysuria, Frequency. Denies: Hematuria Musculoskeletal: Denies: Back pain, Extremity Pain Skin: Denies: Rash, Wounds Neurological: Denies: Headache, Weakness, Numbness Physical Exam Vital Signs/Narrative: Vital Signs Temp Pulse Resp BP Pulse Ox 11/29/19 08:53 97.5 F L 95 16 162/95 H 96 Inital Vital Signs reviewed: Yes General: Well nourished, Well developed, No Acute Distress Head: Normocephalic, Atraumatic Eyes: Perrl, EOMI ENT: Moist mucous membranes, No rhinorrhea Neck: Supple, Nontender Cardiovascular: Regular rate, Regular rhythm, No murmurs Respiratory: No distress, CTA bilaterally, Chest nontender Abdomen: Soft, Nontender, Nondistended, Normal bowel sounds Back: Nontender, Normal Inspection Extremities: Nontender, No edema Skin: Normal color, No rash Neurological: Alert, Oriented x3, Cranial nerves II-XII grossly intact, Normal Sensation, Weakness Psychological: Normal affect, Normal Mood Diagnostic/Tx/Re-eval Clinical Impression(s) from Imaging Studies Chest X-Ray 11/29/19 09:02 IMPRESSION: Stable examination. Electronically Signed: Mick Ricky, at 10:18 EDT , Service support , Abnormal Lab Results 11/29/19 11/29/19 11/29/19 09:25 09:25 09:25 WBC 9.0 RBC 4.20 L Hgb 14.1 Hct 42.3 MCV 100.7 H MCH 33.6 H MCHC 33.3 RDW Std Deviation 48.1 H RDW Coeff of Cinda 13.0 Plt Count 110 L MPV 10.6 Immature Gran % (Auto) 0.300 Neut % (Auto) 96.8 H Lymph % (Auto) 2.2 L [place] % (Auto) 0.3 Eos % (Auto) 0.3 Baso % (Auto) 0.1 Absolute Neuts (auto) 8.7 H Absolute Lymphs (auto) 0.20 L Nucleated RBC % 0 Differential Comment SCANNED Sodium 137 Potassium 3.3 L Chloride 100 Carbon Dioxide 31.0 Anion Gap 6 BUN 16 Creatinine 1.03 Estim Creat Clear Calc 69.89 Est GFR (MDRD) Af Amer 92 Est GFR (MDRD) Non-Af 76 BUN/Creatinine Ratio 15.5 Glucose 210 H Lactic Acid 3.1 H* Calcium 7.9 L Total Bilirubin 1.20 H AST 14 L ALT 31 Alkaline Phosphatase 108 Troponin I < 0.015 Total Protein 7.4 Albumin 3.6 Globulin 3.8 Albumin/Globulin Ratio 0.9 Urine Color Urine Clarity Urine pH Ur Specific [place] Urine Protein Urine Glucose (UA) Urine Ketones Urine Occult Blood Urine Nitrite Urine Bilirubin Urine Urobilinogen Ur Leukocyte Esterase Urine RBC Urine WBC Ur Squamous Epith Cells Urine Bacteria Urine Mucus 11/29/19 11:40 WBC RBC Hgb Hct MCV MCH MCHC RDW Std Deviation RDW Coeff of Cinda Plt Count MPV Immature Gran % (Auto) Neut % (Auto) Lymph % (Auto) [place] % (Auto) Eos % (Auto) Baso % (Auto) Absolute Neuts (auto) Absolute Lymphs (auto) Nucleated RBC % Differential Comment Sodium Potassium Chloride Carbon Dioxide Anion Gap BUN Creatinine Estim Creat Clear Calc Est GFR (MDRD) Af Amer Est GFR (MDRD) Non-Af BUN/Creatinine Ratio Glucose Lactic Acid Calcium Total Bilirubin AST ALT Alkaline Phosphatase Troponin I Total Protein Albumin Globulin Albumin/Globulin Ratio Urine Color Yellow Urine Clarity Cloudy Urine pH 7.0 Ur Specific [place] 1.010 Urine Protein 30 H Urine Glucose (UA) 1000 H Urine Ketones 15 H Urine Occult Blood 150 H Urine Nitrite Positive H Urine Bilirubin Negative Urine Urobilinogen Normal Ur Leukocyte Esterase 500 H Urine RBC 0 SEEN Urine WBC >100 SEEN Ur Squamous Epith Cells 0 SEEN Urine Bacteria 2+ Urine Mucus 0 SEEN - Medical Decision Making The patient presents with chills, malaise, and dysuria. On arrival, he is not hypotensive, tachycardic, or febrile. However, given his symptoms sepsis work- up was pursued. Patient does not have leukocytosis, but does have left shift. Lactic acid was also elevated at 3.1. Chest x-ray was unremarkable. Urine does show evidence of infection. Patient had received blood cultures and urine culture. He was started on IV Rocephin. At this point, given his lactic acid and infection, the patient will be admitted for sepsis. Impression 1. UTI 2. Sepsis ED Disposition - Plan for ED Patient: Referrals: [facility] [Primary Care Provider] -
[2019-11-29 09:48] LABS: Absolute Neutrophil Count 8.7 X10^3/uL (2.0-7.7); Basophil# 0.01 X10^3/uL; Basophil% 0.1 % (0-1); Eosinophil# 0.03 X10^3/uL; Eosinophils% 0.3 % (0-5); Hematocrit 42.3 % (40-54); Hemoglobin 14.1 g/dL (13.0-16.5); Lymphocyte % 2.2 % (19-41); Mean Corp Hgb Conc 33.3 g/dL (32-36); Mean Corpuscular Hgb 33.6 pg (27.0-32.0); Mean Corpuscular Volume 100.7 fL (80-94); Mean Platelet Vol. 10.6 fl (6.2-12.0); Monocyte# 0.03 X10^3/uL; Monocyte% 0.3 % (0-10); NRBC Flagged by Analyzer 0 % (0-5); Neutrophil # 8.74 X10^3/uL (2.7-7.7); Neutrophil % 96.8 % (47-70); POSITIVE DIFFERENTIAL YES; Platelet Count 110 K/mm3 (150-450); RBC Distribution Width SD 48.1 fl (35.1-43.9)
[2019-11-29 09:57] LABS: Differential Indicated SCAN CRITERIA MET
[2019-11-29 10:10] LABS: ALB/GLOB Ratio 0.9 RATIO (0.9-2.4); AST(SGOT) 14 U/L (15-37); Alanine Aminotransfer ALT/SGPT 31 U/L (16-61); Albumin, Serum 3.6 g/dL (3.2-5.0); Alkaline Phosphatase 108 U/L (45-117); Anion Gap 6 (5-15); BUN 16 mg/dL (7-18); BUN/Creat Ratio 15.5 RATIO (10-20); Calcium,Total 7.9 mg/dL (8.5-10.1); Chloride 100 mmol/L (98-107); Creatinine, Serum 1.03 mg/dL (0.70-1.30); EST Glomerular Filtration Rate 76 mL/min (>60); Est Glom Filt Rate - Afr Amer 92 mL/min (>60); Estimated Creatinine Clearance 69.89 ml/min; Globulin 3.8 g/dL (2.2-4.2); Glucose 210 mg/dL (74-106); Potassium 3.3 mmol/L (3.5-5.1); Protein, Total 7.4 g/dL (6.4-8.2); Sodium Level 137 mmol/L (136-145)
[2019-11-29 10:23] LABS: Lactic Acid 3.1 mmol/L (0.4-1.9)
[2019-11-29 10:27] LABS: Differential Comment SCANNED
--- NOTE | 2019-11-29 10:27 | ED.RN ---
NOTIFIED LACTIC 3.1. AWAITING ORDERS.
[2019-11-29] MEDS: Ondansetron 4 MG/2 ML Vial IV (11:16)
[2019-11-29] MEDS: Morphine 4 MG/ML Syringe IV ×3 (11:17→23:21)
[2019-11-29 11:47] LABS: Mucous, Urine 0 SEEN /hpf (<or=2+); Red Blood Cells-Urine 0 SEEN /hpf (0-5); Squamous Epithelial Cells - UA 0 SEEN /hpf (0-5)
[2019-11-29 11:48] LABS: Color, Urine Yellow (Yellow); Glucose, Dipstick 1000 mg/dl (Normal); Ketone-Dipstick 15 mg/dl (Negative); Leukocyte Esterase-Dipstick 500 /ul (Negative); Nitrite-Dipstick Positive (Negative); Occult Blood-Urine 150 /ul (Negative); Protein-Dipstick 30 mg/dl (Negative); Urine Bilirubin Dipstick Negative (Negative); Urine Clarity Cloudy (Clear); Urine Urobilinogen Normal (Normal)
[2019-11-29 11:53] LABS: Bacteria 2+ /hpf (None Seen); White Blood Cells >100 SEEN /hpf (0-5)
--- NOTE | 2019-11-29 12:50 | NURSING ---
CALLED [facility]. TALKED TO SUDARSHAN, TRANSFER . TO FAX CHART TO JETHRO AT [phone]
[2019-11-29] MEDS: Ceftriaxone 1 GM/50 ML BAG IV (13:10)
[2019-11-29] MEDS: Acetaminophen 500 MG Tablet 1000 MG PO (13:10)
[2019-11-29 13:43] LABS: Reflex Lactate? Y
[2019-11-29 15:07] LABS: Lactic Acid 2.8 mmol/L (0.4-1.9)
[2019-11-29] MEDS: 0.9% Normal Saline 1,000 ML 999 ML IV ×4 (15:09→18:28)
--- NOTE | 2019-11-29 16:03 | HP.PCM_ITS ---
Problem List (1) UTI (urinary tract infection) Status: Acute (2) Lactic acid acidosis Status: Acute (3) Hypokalemia Status: Acute (4) CAD (coronary artery disease) Status: Chronic Qualifiers: Coronary Disease-Associated Artery/Lesion type: [place] artery [place] vs. transplanted heart: [place] heart (5) History of permanent cardiac pacemaker placement Status: Chronic Comment: 2001 (6) Atherosclerotic heart disease [place] coronary artery w/angina pectoris Status: Chronic Comment: Cardiac catheterization 02/24/2017?normal LV size should not, EF 55%, [place] multivessel CAD, patent SVG to diagonal 1, OM 2, and RCA, MASON to LAD previously reported as atretic/nonfunctional (not reevaluated at that time), advised medical therapy (7) History of coronary artery stent placement Status: Resolved Comment: Previously placed stent has an instent 85 % restenosis followed by subtotal occlusion per [facility] 02/2017 (8) H/O coronary artery bypass surgery Status: Resolved Comment: CABG x 4 MASON-LAD, SVG-D1, SVG-OM2, SVG-RCA (9) Essential (primary) hypertension Status: Chronic (10) Chest pain Status: Acute Qualifiers: Chest pain type: unspecified Qualified Code(s): R07.9 - Chest pain, unspecified (11) CONI (acute kidney injury) Status: Acute (12) EKATERINA (obstructive sleep apnea) Status: Chronic (13) Abnormal EKG Status: Acute (14) Chest wall contusion Status: Acute (15) Atypical chest pain Status: Acute (16) Left-sided weakness Status: Chronic (17) Chronic respiratory failure Status: Chronic Qualifiers: Comment: baseline 3L continuously (18) DM type 2 (diabetes mellitus, type 2) Status: Chronic Qualifiers: Diabetes mellitus half-way insulin use: 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 Coello is a 69 yo WM with multiple co-morbidities as listed below who presented to the ED at [facility] on 11/29/2019 with urinary frequency. He states that for about the last 2 days he has had dysuria, frequency, fatigue, general malaise, myalgias and chills but denies documented fevers. He had been on doxycycline and prednisone about 1 week ago for bronchitis that has resolved at this time. He does have a h/o UTI and admits that the way he feels now is how he has felt in the past when he has had UTI's. In the ED he was afebrile and his VS were stable. His labs did not show a white count but he does have a L shift. His lactate was elevated to 3.1. His K was 3.3. Troponin was WNL. His UA showed protein, glucose, occult blood, was + for nitrite and leuk esterase and had > 100 WBC noted. He was given IV ceftriaxone in the ED after urine and blood cx were obtained. With his lactate we will initiate the sepsis order set and admit him to the ICU. Past Medical History Past Medical History (Chronic Problems): Chronic Problems (Last Updated 03/12/19 @ 07:25 by Loyda Panda) CAD (coronary artery disease) (Chronic) History of permanent cardiac pacemaker placement (Chronic 09/10/11) 2001 Atherosclerotic heart disease [place] coronary artery w/angina pectoris (Chronic) Cardiac catheterization 02/24/2017?normal LV size should not, EF 55%, [place] multivessel CAD, patent SVG to diagonal 1, OM 2, and RCA, MASON to LAD previously reported as atretic/nonfunctional (not reevaluated at that time), advised medical therapy Essential (primary) hypertension (Chronic) EKATERINA (obstructive sleep apnea) (Chronic) Left-sided weakness (Chronic) Hyperlipidemia (Chronic) Obesity (Chronic) Chronic respiratory failure (Chronic) baseline 3L continuously DM type 2 (diabetes mellitus, type 2) (Chronic) Obstructive sleep apnea (Chronic) Seizure (Chronic) Aphasia (Chronic) CVA (cerebral vascular accident) (Chronic) Residual left-sided weakness Medical History: Medical History (Last Reviewed 11/29/19 @ 16:[address] Varsha Short, DO) Atherosclerotic heart disease [place] coronary artery w/angina pectoris (Chronic) I25.119 Cardiac catheterization 02/24/2017?normal LV size should not, EF 55%, [place] multivessel CAD, patent SVG to diagonal 1, OM 2, and RCA, MASON to LAD previously reported as atretic/nonfunctional (not reevaluated at that time), advised medical therapy Essential (primary) hypertension (Chronic) I10 Chest pain (Acute) R07.9 CONI (acute kidney injury) (Acute) N17.9 EKATERINA (obstructive sleep apnea) (Chronic) G47.33 Abnormal EKG (Acute) R94.31 Chest wall contusion (Acute) S20.219A Atypical chest pain (Acute) R07.89 Left-sided weakness (Chronic) R53.1 Hyperlipidemia (Chronic) E78.5 Obesity (Chronic) E66.9 Chronic respiratory failure (Chronic) J96.10 baseline 3L continuously Allergies ezetimibe Allergy (Verified 11/29/19 08:54) Unknown Fish Containing Products Allergy (Verified 11/29/19 08:54) Unknown glyburide Allergy (Verified 11/29/19 08:54) Unknown isosorbide Allergy (Verified 11/29/19 08:54) PT UNSURE OF REACTION lisinopril Allergy (Verified 11/29/19 08:54) Unknown metformin Allergy (Verified 11/29/19 08:54) Nausea metoprolol Allergy (Verified 11/29/19 08:54) Unknown simvastatin Allergy (Verified 11/29/19 08:54) Unknown Home Medications: Ambulatory Orders Medication Instructions Recorded Aspirin E.C. [Ecotrin] 81 mg PO DAILY@0800 06/11/18 Atorvastatin Calcium [Lipitor] 80 mg PO QHS 06/11/18 Cholecalciferol (VIT D3) [Vitamin 3,000 units PO DAILY 06/11/18 D3] Clopidogrel Bisulfate [Clopidogrel] 75 mg PO DAILY 06/11/18 Escitalopram Oxalate [Lexapro] 10 mg PO DAILY 06/11/18 Finasteride [Proscar] 5 mg PO DAILY 06/11/18 Furosemide [Lasix] 20 mg PO DAILY 06/11/18 Insulin Regular, Human [Humulin R 195 unit SQ BREAKFAST 06/11/18 U-500 Kwikpen] Insulin Regular, Human [Humulin R 195 unit SQ DINNER 06/11/18 U-500 Kwikpen] Multivitamins,Ther W-Minerals 1 tablet PO DAILY 06/11/18 [Multivitamin With Minerals ([facility])] Pantoprazole Sodium 40 mg PO BIDCM 06/11/18 Ranolazine [Ranexa] 1,000 mg PO BID 06/11/18 Tamsulosin HCl [Flomax] 0.8 mg PO QHS 06/11/18 Acetaminophen [Tylenol Tablet] 650 mg PO Q6H PRN PRN tablet 06/21/18 Nitroglycerin (INPATIENT USE) 0.4 mg SUBLINGUAL Q5M PRN #30 07/22/18 [Nitrostat] tablet Carvedilol [Coreg] 12.5 mg PO BID 12/03/18 Diclofenac Sodium [Diclo Gel] 4 gm TP BID PRN PRN 11/08/19 Guaifenesin 10 ml PO TID PRN PRN 11/08/19 Ketoconazole [Nizoral] 1 applicatio TP DAILY 11/08/19 Liraglutide [Victoza] 0.6 mg SQ DAILY 11/29/19 Surgical History: Surgical History (Last Reviewed 11/29/19 @ 16:[address] Varsha Short, DO) History of permanent cardiac pacemaker placement (Chronic) Onset Date: 09/10/11 Z95.0 2001 History of coronary artery stent placement (Resolved) Z95.5 Previously placed stent has an instent 85 % restenosis followed by subtotal occlusion per [facility] 02/2017 H/O coronary artery bypass surgery (Resolved) Z95.1 CABG x 4 MASON-LAD, SVG-D1, SVG-OM2, SVG-RCA Surgical History: angioplasty, coronary bypass surgery, pacemaker implantation, - - cabg,cholecystectemy, hernia, left knee, 4 stents Psychiatric History: Depression Lives: Spouse/ Significant Other Smoking Status: Former smoker Alcohol: Rare Drugs: None - *Family History Maternal History Items: Heart Disease Paternal History Items: - - Patient does not know his paternal family history. Review of Systems Constitutional: Reports: Chills, Malaise, Weakness, Fatigue. Denies: Anorexia, Fever, Night Sweats, Weight Change Eyes: Denies: Blurred vision, Conjunctivae Inflammation, Drainage, Eyelid Inflammation, Pain, Redness, Vision Change HEENT: Reports: Difficulty Hearing. Denies: Dysphasia, Ear Pain, Eye Pain, Head Aches, Nasal bleeding, Nasal Congestion, Post Nasal Drip, Sinus Congestion, Sinus Drainage, Sore Throat, Visual Changes Cardiovascular: Denies: Chest Pain, Chest Pressure, Edema, Heaviness, Light Headedness, Orthopnea, Palpitations, Paroxysmal Noc. Dyspnea, Syncope Respiratory: Reports: Cough - chronic, Shortness of Breath - chronic. Denies: Hemoptysis, Pleuritic Pain, Shortness of breath at rest, Shortness of breath upon exertion, Sputum production, Wheezing Gastrointestinal: Denies: Abdominal Pain, Constipation, Diarrhea, Dyspepsia, Hematemesis, Hematochezia, Nausea, Melena, Vomiting Genitourinary: Reports: Dysuria, Frequency. Denies: Hematuria, Hesitancy, Incontinence, Nocturia, Retention, Urgency Musculoskeletal: Denies: Back Pain, Joint Pain, Joint stiffness, Joint swelling, Joint Tenderness, Leg Pain, Muscle pain, Neck Pain, Shoulder Pain Skin: Denies: Dryness, Jaundice, Lesions, Pruritis, Rash, Skin Changes, Wounds Neurological: Reports: Balance problems - chronic, Change in Speech - chronic, Tingling - chronic. Denies: Blurred vision, Double vision, Slurred speech, Confusion, Difficulty swallowing, Focal weakness, Headaches, Incoordination, Numbness, Tremor, Seizures Psychiatric: Denies: Anxiety, Depression Endocrine: Denies: Change in Body Habitus, Heat/ Cold Intolerance, Polydipsia, Polyuria Hematologic/ Lymphatic: Denies: Adenopathy, Anemia, Easy Bruising, Easy Bleeding, Petechiae, Purpura VTE Information - Inpt Only VTE Present on Admission: No VTE Mechan Device Prophylaxis: SCD's VTE Pharm Prophylaxis ordered?: Yes - Physical Exam Vitals/I&O's: Vital Signs Temp Pulse Resp BP Pulse Ox 98.7 F 92 18 122/58 H 97 11/29/19 15:02 11/29/19 15:02 11/29/19 15:09 11/29/19 15:02 11/29/19 15:09 Oxygen Flow Rate (L/min) 3 Oxygen Delivery Method Nasal Cannula Weight: 112.7 kg Body Mass Index (BMI) 35.6 Finger Stick Blood Glucose 138 Intake and Output for Last 24 Hours 11/27/19 11/28/19 11/29/19 23:59 23:59 23:59 Intake Total 150 / 150 Output Total 50 / 50 Balance 100 / 100 General: Alert, Oriented x3, Cooperative, No apparent distress, Well developed, Well nourished, - - Obese WM sitting up in bed and moves I, appears comfortable, at bedside HEENT: Atraumatic, PERRLA, EOMI, Normocephalic, EAC Clear Oral: Moist Mucosa, No Gingival or Mucosal Lesions/ Ulcerations, - - dentures in place, mallampati 3-4 Neck: Supple, No JVD, Negative Carotid Bruits, Negative Hepatojugular Reflux, No Nodes, No Nuchal Rigidity, Trachea Midline, Thyroid Normal Size and Texture, - Lungs: Clear to auscultation, No rhonchi, No wheeze, No rales, Diminished - 2/2 body habitus Cardiovascular: Regular rate, Regular Rhythm, Normal S1, Normal S2, No murmurs, No Ectopic Activity, No rub noted, No Gallop Abdomen: Bowel Sounds Present, Soft, Non Tender, Non-Distended, Obese, Hernia - umbilical but reducible Extremities: No clubbing, No cyanosis, No edema, Edema Skin: No rashes, No breakdown Musculoskeletal: No Tenderness to Palpation of Joints or Extremities, Arthritic Changes, - - Brace on L knee Lymphatic: No Cervical, Supraclavicular, or Inguinal Adenopathy Neurological: Deep Tendon Reflexes 2+/4 and Symmetrical, Facial Droop - chronic mild, Slurred Speech - chronic, Muscle tone normal, Coordination normal Psych/Mental Status: Normal Affect, Appropriate, Alert and oriented to time, place, person, mood and affect Laboratory Results 11/29/19 09:25: WBC 9.0, RBC 4.20 L, Hgb 14.1, Hct 42.3, MCV 100.7 H, MCH 33.6 H , MCHC 33.3, RDW Std Deviation 48.1 H, RDW Coeff of Cinda 13.0, Plt Count 110 L, MPV 10.6, Immature Gran % (Auto) 0.300, Neut % (Auto) 96.8 H, Lymph % (Auto) 2.2 L, [place] % (Auto) 0.3, Eos % (Auto) 0.3, Baso % (Auto) 0.1, Absolute Neuts (auto) 8.7 H, Absolute Lymphs (auto) 0.20 L, Nucleated RBC % 0, Differential Comment SCANNED 11/29/19 09:25: Sodium 137, Potassium 3.3 L, Chloride 100, Carbon Dioxide 31.0, Anion Gap 6, BUN 16, Creatinine 1.03, Estim Creat Clear Calc 69.89, Est GFR (MDRD) Af Amer 92, Est GFR (MDRD) Non-Af 76, BUN/Creatinine Ratio 15.5, Glucose 210 H, Calcium 7.9 L, Total Bilirubin 1.20 H, AST 14 L, ALT 31, Alkaline Phosphatase 108, Troponin I < 0.015, Total Protein 7.4, Albumin 3.6, Globulin 3.8, Albumin/Globulin Ratio 0.9 11/29/19 09:25: Lactic Acid 3.1 H* 11/29/19 11:40: Urine Color Yellow, Urine Clarity Cloudy, Urine pH 7.0, Ur Specific [place] 1.010, Urine Protein 30 H, Urine Glucose (UA) 1000 H, Urine Ketones 15 H, Urine Occult Blood 150 H, Urine Nitrite Positive H, Urine Bilirubin Negative, Urine Urobilinogen Normal, Ur Leukocyte Esterase 500 H, Urine RBC 0 SEEN, Urine WBC >100 SEEN, Ur Squamous Epith Cells 0 SEEN, Urine Bacteria 2+, Urine Mucus 0 SEEN 11/29/19 14:25: Lactic Acid 2.8 H* 11/29/19 14:45: MRSA (PCR) Pending Current Medications Acetaminophen (Acetaminophen 325 Mg Tablet) 650 mg PO Q6H PRN PRN PRN Reason: Pain Score 1-10/Temp > 100.7 F Al Hydroxide/Mg Hydroxide (Mag Hydrox/Al Hydrox/Simeth 30 Ml Udc) 30 ml PO Q6H PRN PRN PRN Reason: Gastric Burning Aspirin (Aspirin E.C. 81 Mg Tablet) 81 mg PO DAILY@0800 [facility] Atorvastatin Calcium (Atorvastatin Calcium 80 Mg Tablet) 80 mg PO QHS [facility] Carvedilol (Carvedilol 12.5 Mg Tablet) 12.5 mg PO BID [facility] Cholecalciferol (Cholecalciferol (Vit D3) 1,000 Unit (25mcg)) 3,000 unit PO DAILY [facility] Clopidogrel Bisulfate (Clopidogrel Bisulfate 75 Mg Tablet) 75 mg PO DAILY [facility] Enoxaparin Sodium (Enoxaparin 40 Mg/0.4 Ml Syringe) 40 mg SC DAILY [facility] Escitalopram Oxalate (Escitalopram Oxalate 10 Mg Tablet) 10 mg PO DAILY [facility] Finasteride (Finasteride 5 Mg Tablet) 5 mg PO DAILY [facility] Guaifenesin (Guaifenesin 10 Ml Udc (200mg/10ml)) 10 ml PO TID PRN PRN PRN Reason: COUGH Sodium Chloride () 1,000 mls @ 999 mls/hr IV .Q1H1M [facility]; Protocol Stop: 11/29/19 17:57 Last Admin: 11/29/19 15:09 Dose: 999 mls/hr Documented by: Ceftriaxone Sodium (Rocephin) 1 gm in 50 mls @ 100 mls/hr IV Q24 [facility] Insulin Human Regular (Insulin U-500 Pen) 195 units SC BREAKFAST [facility] Insulin Human Regular (Insulin U-500 Pen) 195 units SC DINNER [facility] Liraglutide (Liraglutide 0.6 Mg/0.1 Ml Pen.Injctr) 0.6 mg SQ DAILY [facility] Melatonin (Melatonin 3 Mg Tablet) 3 mg PO QHS PRN PRN PRN Reason: INSOMNIA Morphine Sulfate (Morphine 4 Mg/Ml Syringe) 4 mg IV Q3H PRN PRN PRN Reason: Pain Score 6-10 Last Admin: 11/29/19 15:16 Dose: 4 mg Documented by: Multivitamins/Minerals (Multivitamins,Ther W-Minerals Tablet) [facility] Nitroglycerin (Nitroglycerin (Inpatient Use) 0.4 Mg Tab.Subl) 0.4 mg SUBLINGUAL Q5M PRN PRN Reason: CHEST Ondansetron HCl (Ondansetron 4 Mg/2 Ml Vial) 4 mg IV Q8H PRN PRN PRN Reason: NAUSEA/VOMITING Pantoprazole Sodium (Pantoprazole Sodium 40 Mg Tablet) 40 [facility] Ranolazine (Ranolazine 500 Mg Tablet) 1,000 mg PO BID [facility] Senna/Docusate Sodium (Senna/Docusate Sodium 1 Tablet) 2 tablet PO BID PRN PRN Reason: Constipation Sodium Chloride (0.9% Saline Lock 10 Ml Syringe) 10 - 40 ml IV UD PRN PRN Reason: SALINE FLUSH Tamsulosin HCl (Tamsulosin Hcl 0.4 Mg Capsule) 0.8 mg PO QHS [facility] Assessment/Plan All Active Problems (Last Updated 03/12/19 @ 07:25 by Loyda Panda) UTI (urinary tract infection) (Acute) Lactic acid acidosis (Acute) Hypokalemia (Acute) History of coronary artery stent placement (Resolved) H/O coronary artery bypass surgery (Resolved) Chest pain (Acute) CONI (acute kidney injury) (Acute) Abnormal EKG (Acute) Chest wall contusion (Acute) Atypical chest pain (Acute) Sepsis 2/2 suspected UTI -has elevated lactate at 3.1 and source of infection--> no criteria for severe sepsis otherwise -cycle lactates -start CTX 2 gm daily -blood and urine cx pending -check MRSA PCR and if + add vanc -fluid boluses per protocol -ICU consultation Lactic Acidosis -trending down -cycle per protocol Hypokalemia -Kdur now and repeat in am -check Mag Chronic Respiratory Failure 2/2 COPD -baseline lung fxn unknown--> follows at [place] -continue O2 at baseline 3 L -monitor HTN/HPL/CAD with h/o CABG/h/o stroke -continue Coreg/statin/ASA/Plavix/Ranexa -hold lasix today--> suspect will be able to restart in am EKATERINA -CPAP at hs -per they have the machine in the car and will bring it in DM-2 -on U500 at 195 u BID -continue above and watch BGT AC and HS -recently started on Victoza per -continue BPH -continue flomax and proscar Depression -continue Lexapro Vitamin D deficiency -continue D3 DVT Prophylaxis -SCD and Lovenox Code Status -Full
--- NOTE | 2019-11-29 16:05 | CON.PCM_ITS ---
Reason for Consult Date of Consultation: 11/29/19 Reason for Consultation: Severe sepsis History of Present Illness: The patient is a 69 year old M, with past medical history listed below, who presented to [facility] on 11/29/2019 secondary to urinary frequency, dysuria, chills and myalgias. Patient denied any fever, but states his symptoms started over the last 24 hours. Patient states these were similar to previous urinary tract infections. Patient does have a history of prior complex UTIs with gross hematuria and bladder procedures, but is unclear on the exact interventions. Patient does state that he was recently on doxycycline secondary to some shortness of breath. Patient has not had any chest pain, nausea or vomiting. Patient does have some increased lower extremity edema at baseline. In the ER, patient was not hypotensive or febrile. Patient did not have a leukocytosis, but did have a left shift and lactate was elevated at 3.1. UA was suggestive of infection and cultures were obtained. Patient was given a dose of IV Rocephin and admitted to the intensive care unit for further evaluation. Patient reports a long history of diabetes mellitus with significant insulin requirements. Patient states he uses over 100 units twice daily to maintain euglycemia. Patient also states he has a 10-year history of COPD and uses 2 to 3 L at home chronically. [facility] and is unaware of his lung function. Patient does have a history of a prior stroke and was left with residual left-sided deficits along with some aphasia. Patient does not believe that his neurologic exam has changed recently. Patient does report a history of obstructive sleep apnea that is treated with CPAP, but he brought only his mask, not his machine. Patient is unaware of the settings. Review of systems otherwise negative from a constitutional, HEENT, respiratory, cardiovascular, GI, genitourinary, musculoskeletal, skin, neurologic, psychiatric and hematologic system unless stated above. Past Medical History Past Medical History (Chronic Problems): Chronic Problems (Last Updated 03/12/19 @ 07:25 by Loyda Panda) CAD (coronary artery disease) (Chronic) History of permanent cardiac pacemaker placement (Chronic 09/10/11) 2001 Atherosclerotic heart disease [place] coronary artery w/angina pectoris (Chronic) Cardiac catheterization 02/24/2017?normal LV size should not, EF 55%, [place] multivessel CAD, patent SVG to diagonal 1, OM 2, and RCA, MASON to LAD previously reported as atretic/nonfunctional (not reevaluated at that time), advised medical therapy Essential (primary) hypertension (Chronic) EKATERINA (obstructive sleep apnea) (Chronic) Left-sided weakness (Chronic) Hyperlipidemia (Chronic) Obesity (Chronic) Chronic respiratory failure (Chronic) baseline 3L continuously DM type 2 (diabetes mellitus, type 2) (Chronic) Obstructive sleep apnea (Chronic) Seizure (Chronic) Aphasia (Chronic) CVA (cerebral vascular accident) (Chronic) Residual left-sided weakness Medical History: Medical History (Last Updated 03/12/19 @ 07:25 by Loyda Panda) Atherosclerotic heart disease [place] coronary artery w/angina pectoris (Chronic) I25.119 Cardiac catheterization 02/24/2017?normal LV size should not, EF 55%, [place] multivessel CAD, patent SVG to diagonal 1, OM 2, and RCA, MASON to LAD previously reported as atretic/nonfunctional (not reevaluated at that time), advised medical therapy Essential (primary) hypertension (Chronic) I10 Chest pain (Acute) R07.9 CONI (acute kidney injury) (Acute) N17.9 EKATERINA (obstructive sleep apnea) (Chronic) G47.33 Abnormal EKG (Acute) R94.31 Chest wall contusion (Acute) S20.219A Atypical chest pain (Acute) R07.89 Left-sided weakness (Chronic) R53.1 Hyperlipidemia (Chronic) E78.5 Obesity (Chronic) E66.9 Chronic respiratory failure (Chronic) J96.10 baseline 3L continuously Allergies ezetimibe Allergy (Verified 11/29/19 08:54) Unknown Fish Containing Products Allergy (Verified 11/29/19 08:54) Unknown glyburide Allergy (Verified 11/29/19 08:54) Unknown isosorbide Allergy (Verified 11/29/19 08:54) PT UNSURE OF REACTION lisinopril Allergy (Verified 11/29/19 08:54) Unknown metformin Allergy (Verified 11/29/19 08:54) Nausea metoprolol Allergy (Verified 11/29/19 08:54) Unknown simvastatin Allergy (Verified 11/29/19 08:54) Unknown Home Medications: Ambulatory Orders Medication Instructions Recorded Aspirin E.C. [Ecotrin] 81 mg PO DAILY@0800 06/11/18 Atorvastatin Calcium [Lipitor] 80 mg PO QHS 06/11/18 Cholecalciferol (VIT D3) [Vitamin 3,000 units PO DAILY 06/11/18 D3] Clopidogrel Bisulfate [Clopidogrel] 75 mg PO DAILY 06/11/18 Escitalopram Oxalate [Lexapro] 10 mg PO DAILY 06/11/18 Finasteride [Proscar] 5 mg PO DAILY 06/11/18 Furosemide [Lasix] 20 mg PO DAILY 06/11/18 Insulin Regular, Human [Humulin R 195 unit SQ BREAKFAST 06/11/18 U-500 Kwikpen] Insulin Regular, Human [Humulin R 195 unit SQ DINNER 06/11/18 U-500 Kwikpen] Multivitamins,Ther W-Minerals 1 tablet PO DAILY 06/11/18 [Multivitamin With Minerals ([facility])] Pantoprazole Sodium 40 mg PO BIDCM 06/11/18 Ranolazine [Ranexa] 1,000 mg PO BID 06/11/18 Tamsulosin HCl [Flomax] 0.8 mg PO QHS 06/11/18 Acetaminophen [Tylenol Tablet] 650 mg PO Q6H PRN PRN tablet 06/21/18 Nitroglycerin (INPATIENT USE) 0.4 mg SUBLINGUAL Q5M PRN #30 07/22/18 [Nitrostat] tablet Carvedilol [Coreg] 12.5 mg PO BID 12/03/18 Diclofenac Sodium [Diclo Gel] 4 gm TP BID PRN PRN 11/08/19 Guaifenesin 10 ml PO TID PRN PRN 11/08/19 Ketoconazole [Nizoral] 1 applicatio TP DAILY 11/08/19 Liraglutide [Victoza] 0.6 mg SQ DAILY 11/29/19 Surgical History: Surgical History (Last Updated 03/12/19 @ 07:29 by Loyda Panda) History of permanent cardiac pacemaker placement (Chronic) Onset Date: 09/10/11 Z95.0 2001 History of coronary artery stent placement (Resolved) Z95.5 Previously placed stent has an instent 85 % restenosis followed by subtotal occlusion per [facility] 02/2017 H/O coronary artery bypass surgery (Resolved) Z95.1 CABG x 4 [place]-LAD, SVG-D1, SVG-OM2, SVG-RCA Surgical History: angioplasty, coronary bypass surgery, pacemaker implantation, - - cabg,cholecystectemy, hernia, left knee, 4 stents Psychiatric History: Depression Smoking Status: Former smoker - *Family History Maternal History Items: Heart Disease Paternal History Items: - - Patient does not know his paternal family history. Review of Systems Comment: See HPI Objective: Chest x-ray was personally reviewed and shows no significant change from previous. Patient did have a stress test completed in February 2019 showing an EF of 54% with no evidence of ischemia. Patient has never had a pulmonary function test. Patient has had multiple UTIs in the past with relatively sensitive bacteria with no recurrent bacterial etiologies. - Physical Exam Vitals/I&O's: Vital Signs Temp Pulse Resp BP Pulse Ox 37.1 C 92 18 122/58 H 97 11/29/19 15:02 11/29/19 15:02 11/29/19 15:09 11/29/19 15:02 11/29/19 15:09 Oxygen Flow Rate (L/min) 3 Oxygen Delivery Method Nasal Cannula Weight: 112.7 kg Body Mass Index (BMI) 35.6 Finger Stick Blood Glucose 138 Intake and Output for Last 24 Hours 11/27/19 11/28/19 11/29/19 23:59 23:59 23:59 Intake Total 150 / 150 Output Total 50 / 50 Balance 100 / 100 General: Alert, Oriented x3, Cooperative, No apparent distress, Well developed, Well nourished, - - Obese. Speaking in full sentences. HEENT: Atraumatic, PERRLA, EOMI, Normocephalic, - - No scleral icterus or injection noted Oral: Moist Mucosa, No Gingival or Mucosal Lesions/ Ulcerations, - - Crowded posterior pharynx Neck: Supple, No JVD, No Nodes, Trachea Midline Lungs: No rhonchi, No wheeze, No rales, Diminished, - - Symmetric expansion. No dullness to percussion. Cardiovascular: Normal S1, Normal S2, No murmurs, No rub noted, No Gallop, Tachycardic Abdomen: Bowel Sounds Present, Soft, Non Tender, Non-Distended, Obese Extremities: No clubbing, No cyanosis, Edema Skin: No rashes, No breakdown, - - Venous stasis changes noted of lower extremities Musculoskeletal: No Tenderness to Palpation of Joints or Extremities Lymphatic: No Cervical, Supraclavicular, or Inguinal Adenopathy Neurological: Cranial nerves II-XII grossly intact, Neuro grossly intact, Motor Exam 5/5 strength throughout Psych/Mental Status: Alert and oriented to time, place, person, mood and affect Laboratory Results 11/29/19 09:25: WBC 9.0, RBC 4.20 L, Hgb 14.1, Hct 42.3, MCV 100.7 H, MCH 33.6 H , MCHC 33.3, RDW Std Deviation 48.1 H, RDW Coeff of Cinda 13.0, Plt Count 110 L, MPV 10.6, Immature Gran % (Auto) 0.300, Neut % (Auto) 96.8 H, Lymph % (Auto) 2.2 L, [place] % (Auto) 0.3, Eos % (Auto) 0.3, Baso % (Auto) 0.1, Absolute Neuts (auto) 8.7 H, Absolute Lymphs (auto) 0.20 L, Nucleated RBC % 0, Differential Comment SCANNED 11/29/19 09:25: Sodium 137, Potassium 3.3 L, Chloride 100, Carbon Dioxide 31.0, Anion Gap 6, BUN 16, Creatinine 1.03, Estim Creat Clear Calc 69.89, Est GFR (MDRD) Af Amer 92, Est GFR (MDRD) Non-Af 76, BUN/Creatinine Ratio 15.5, Glucose 210 H, Calcium 7.9 L, Total Bilirubin 1.20 H, AST 14 L, ALT 31, Alkaline Phosphatase 108, Troponin I < 0.015, Total Protein 7.4, Albumin 3.6, Globulin 3.8, Albumin/Globulin Ratio 0.9 11/29/19 09:25: Lactic Acid 3.1 H* 11/29/19 11:40: Urine Color Yellow, Urine Clarity Cloudy, Urine pH 7.0, Ur Specific [place] 1.010, Urine Protein 30 H, Urine Glucose (UA) 1000 H, Urine Ketones 15 H, Urine Occult Blood 150 H, Urine Nitrite Positive H, Urine Bilirubin Negative, Urine Urobilinogen Normal, Ur Leukocyte Esterase 500 H, Urine RBC 0 SEEN, Urine WBC >100 SEEN, Ur Squamous Epith Cells 0 SEEN, Urine Bacteria 2+, Urine Mucus 0 SEEN 11/29/19 14:25: Lactic Acid 2.8 H* 11/29/19 14:45: MRSA (PCR) Pending Current Medications Acetaminophen (Acetaminophen 325 Mg Tablet) 650 mg PO Q6H PRN PRN PRN Reason: Pain Score 1-10/Temp > 100.7 F Al Hydroxide/Mg Hydroxide (Mag Hydrox/Al Hydrox/Simeth 30 Ml Udc) 30 ml PO Q6H PRN PRN PRN Reason: Gastric Burning Aspirin (Aspirin E.C. 81 Mg Tablet) 81 mg PO DAILY@0800 [facility] Atorvastatin Calcium (Atorvastatin Calcium 80 Mg Tablet) 80 mg PO QHS [facility] Carvedilol (Carvedilol 12.5 Mg Tablet) 12.5 mg PO BID [facility] Cholecalciferol (Cholecalciferol (Vit D3) 1,000 Unit (25mcg)) 3,000 unit PO DAILY [facility] Clopidogrel Bisulfate (Clopidogrel Bisulfate 75 Mg Tablet) 75 mg PO DAILY [facility] Enoxaparin Sodium (Enoxaparin 40 Mg/0.4 Ml Syringe) 40 mg SC DAILY [facility] Escitalopram Oxalate (Escitalopram Oxalate 10 Mg Tablet) 10 mg PO DAILY [facility] Finasteride (Finasteride 5 Mg Tablet) 5 mg PO DAILY [facility] Guaifenesin (Guaifenesin 10 Ml Udc (200mg/10ml)) 10 ml PO TID PRN PRN PRN Reason: COUGH Sodium Chloride () 1,000 mls @ 999 mls/hr IV .Q1H1M [facility]; Protocol Stop: 11/29/19 17:57 Last Admin: 11/29/19 15:09 Dose: 999 mls/hr Documented by: Ceftriaxone Sodium (Rocephin) 1 gm in 50 mls @ 100 mls/hr IV Q24 [facility] Insulin Human Regular (Insulin U-500 Pen) 195 units SC BREAKFAST [facility] Insulin Human Regular (Insulin U-500 Pen) 195 units SC DINNER [facility] Liraglutide (Liraglutide 0.6 Mg/0.1 Ml Pen.Injctr) 0.6 mg SQ DAILY [facility] Melatonin (Melatonin 3 Mg Tablet) 3 mg PO QHS PRN PRN PRN Reason: INSOMNIA Morphine Sulfate (Morphine 4 Mg/Ml Syringe) 4 mg IV Q3H PRN PRN PRN Reason: Pain Score 6-10 Last Admin: 11/29/19 15:16 Dose: 4 mg Documented by: Multivitamins/Minerals (Multivitamins,Ther W-Minerals Tablet) 1 tablet PO D AILYCM [facility] Nitroglycerin (Nitroglycerin (Inpatient Use) 0.4 Mg Tab.Subl) 0.4 mg SUBLINGUAL Q5M PRN PRN Reason: CHEST Ondansetron HCl (Ondansetron 4 Mg/2 Ml Vial) 4 mg IV Q8H PRN PRN PRN Reason: NAUSEA/VOMITING Pantoprazole Sodium (Pantoprazole Sodium 40 Mg Tablet) 40 mg PO BIDCM [facility] Potassium Chloride (Potassium Chloride 20 Meq Tablet) 40 meq PO X1 ONE Stop: 11/29/19 16:05 Ranolazine (Ranolazine 500 Mg Tablet) 1,000 mg PO BID [facility] Senna/Docusate Sodium (Senna/Docusate Sodium 1 Tablet) 2 tablet PO BID PRN PRN Reason: Constipation Sodium Chloride (0.9% Saline Lock 10 Ml Syringe) 10 - 40 ml IV UD PRN PRN Reason: SALINE FLUSH Tamsulosin HCl (Tamsulosin Hcl 0.4 Mg Capsule) 0.8 mg PO QHS [facility] Clinical Impression(s) from Imaging Studies Chest X-Ray 11/29/19 09:02 IMPRESSION: Stable examination. Electronically Signed: Mick García, at 10:18 EDT , Service support , Assessment/Plan RECOMMENDATIONS: 1. Initiate ceftriaxone 2. Monitor with telemetry 3. Continue home CPAP 4. Continue current subcu insulin regimen. Consider adding sliding scale insulin 5. Await neurology consultation IMPRESSIONS: 1. Severe sepsis secondary to UTI Clinical suspicion for severe sepsis secondary to UTI. Patient does not have a significant leukocytosis at this time, but this may be secondary to partial treatment with doxycycline. Patient does have a left shift noted along with bacteria in the urine. Doxycycline would not be a great medication for a urinary tract infection. Patient has had multiple positive cultures in the past, but no significant resistance patterns have been noted. Ceftriaxone is likely appropriate. Continue with fluid bolus and monitor closely. 2. Chronic hypoxic respiratory failure/EKATERINA Unclear etiology at this time his history is very limited. Will keep saturations at appropriate levels. Patient reportedly has been on oxygen for several years. Unclear if this is secondary to obesity hypoventilation. [facility] is typically [facility]. Would continue with normal treatment for sleep disordered breathing. We will need to watch patient's oxygenation given fluid boluses. 3. Diabetes mellitus/obesity/hypertension/hyperlipidemia/recent stroke Complicates care, management, recovery and prognosis. Continue with every 6 blood sugar checks. Patient is on a significant amount of insulin, but states this is what it takes. If anything would suggest the patient would be hyperglycemic given his endogenous steroid release secondary to problem #1. Okay to continue with baseline medications for now. No new neurologic findings are noted. Will need to watch patient if he becomes hypotensive. Consider obtaining NIH every 6 if this were to occur. Inpatient E&M: 71908 Init Hosp L2
[2019-11-29] MEDS: Pantoprazole Sodium 40 MG Tablet PO (16:53)
[2019-11-29 17:01] LABS: Bedside Glucose 135 mg/dL (70-110)
--- NOTE | 2019-11-29 19:38 | EKG12_ITS ---
Test Reason : ALT MENTAL STATUS Blood Pressure : / mmHG Vent. Rate : 108 BPM Atrial Rate : 108 BPM P-R Int : 216 ms QRS Dur : 108 ms QT Int : 336 ms P-R-T Axes : 067 -33 068 degrees QTc Int : 450 ms Sinus tachycardia with 1st degree A-V block Left axis deviation Abnormal ECG When compared with ECG of 18-NOV-2019 03:10, Sinus rhythm has replaced Electronic atrial pacemaker Vent. rate has increased BY 48 BPM T wave inversion no longer evident in Anterior leads Confirmed by BRYN GUALLPA, JULIO C ([id number]), news video editor NADINE FERRER ([id number]) on 11/30/2019 11:35:26 AM Referred By: Confirmed By:BELEN CLEMENTE MD
--- NOTE | 2019-11-29 20:04 | CT_ITS ---
STUDY: CT BRAIN WITHOUT CONTRAST REASON FOR EXAM: Male, 69 years old. MENTAL STATUS CHANGES, CONFUSION AT 1800 WITH GARBLED SPEECH, RISING TEMP AT 103, WEAKNESS, HERE FOR SEPSIS, UTI, PRIOR STROKE RADIATION DOSAGE (If Supplied By Facility): CTDIvol = ( 44.99 ) mGy, DLP = ( 863.60 ) mGycm TECHNIQUE: Transaxial CT imaging of the brain was performed without administration of intravenous contrast material. Individualized dose optimization techniques were used for this CT. COMPARISON: November 10, 2019 CT scan head FINDINGS: Normal soft tissue structures. Normal calvarium. There is mild cerebral atrophy with widening of the extra-axial spaces and ventricular dilatation. Normal white matter tracts of the cerebral hemispheres. Normal basal ganglia and thalami. Normal brainstem. Normal cerebellum. There is no intracranial hemorrhage. There are no findings of an acute ischemic infarction. There is mucoperiosteal inflammatory disease of the paranasal sinuses consistent with mild chronic sinusitis. 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 CT/Brain/Head without Contrast IMPRESSION: Mild atrophy. No visualized evidence of acute hemorrhage infarct or edema. Mild sinusitis. Electronically Signed: Kristyn Zhang MD at 23:26 EDT Tel , Service support ,
--- NOTE | 2019-11-29 20:08 | PCM.HOSP.N ---
Hospitalist Note Notified of confusion by nursing. Currently around 1800, patient was alert and oriented but has become more confused since that time. Patient not adequately to follow commands and his speech is garbled. Patient's temperature is also been steadily climbing up to 102.7. Went to evaluate the patient and the patient is alert but oriented only to self and place. Speech is gravelly. Patient does follow some commands and is just diffusely weak throughout with 4-5 muscle strength. No focal deficits could be identified. I feel the patient encephalopathy is likely metabolic related with the underlying sepsis, UTI and increasing fever. I do not feel that a stroke team is necessary at this time given lack of focal deficits. Will order a head CT and with his climbing temperature likely with his underlying UTI but will check him for COVID as well. Discussed with nursing.
[2019-11-29] MEDS: Acetaminophen 325 MG Tablet 650 MG PO (20:35)
[2019-11-29] MEDS: Atorvastatin Calcium 80 MG Tablet PO (20:42)
[2019-11-29] MEDS: Ranolazine 500 MG Tablet 1000 MG PO (20:43)
[2019-11-29] MEDS: Carvedilol 12.5 MG Tablet PO (20:43)
[2019-11-29] MEDS: Tamsulosin HCl 0.4 MG Capsule 0.8 MG PO (20:43)
[2019-11-30] VITALS (16 sets, daily range): BP systolic 100–164; BP diastolic 53–96; PULSE 64–86; RESP 17–21; TEMP 36.1–37.2; O2SAT 96–100
[2019-11-30 00:07] LABS: M R Staph aureus DNA By PCR Negative (Negative); Probe Check PASS; Specimen Processing Control PASS
[2019-11-30 01:05] LABS: Bedside Glucose 132 mg/dL (70-110)
--- NOTE | 2019-11-30 02:20 | CPS ---
PT REFUSED HOSPITAL BIPAP. WAITING TO USE HIS OWN MACHINE TONIGHT IS BRINGING IT IN TODAY. PT ON 3L OXYGEN SATURATIONS MAINTAINED ABOVE 90%
[2019-11-30] MEDS: Morphine 4 MG/ML Syringe IV (03:52)
[2019-11-30] MEDS: 0.9% Saline Lock 10 ML Syringe IV ×3 (03:54→18:08)
[2019-11-30 04:06] LABS: Absolute Lymphocyte Count 0.31 X10^3/uL (0.83-4.51); Absolute Neutrophil Count 6.1 X10^3/uL (2.0-7.7); Basophil# 0.01 X10^3/uL; Basophil% 0.1 % (0-1); Eosinophil# 0.11 X10^3/uL; Eosinophils% 1.6 % (0-5); Hematocrit 37.9 % (40-54); Hemoglobin 12.6 g/dL (13.0-16.5); Lymphocyte # 0.31 X10^3/ul (4.0); Lymphocyte % 4.5 % (19-41); Mean Corp Hgb Conc 33.2 g/dL (32-36); Mean Corpuscular Hgb 33.9 pg (27.0-32.0); Mean Corpuscular Volume 101.9 fL (80-94); Mean Platelet Vol. 10.1 fl (6.2-12.0); Monocyte# 0.34 X10^3/uL; Monocyte% 4.9 % (0-10); NRBC Flagged by Analyzer 0 % (0-5); Neutrophil # 6.13 X10^3/uL (2.7-7.7); Neutrophil % 88.5 % (47-70); POSITIVE COUNT YES; POSITIVE DIFFERENTIAL YES; POSITIVE MORPHOLOGY YES; Platelet Count 80 K/mm3 (150-450); RBC Distribution Width CV 13.2 % (11.6-14.6); RBC Distribution Width SD 50.4 fl (35.1-43.9); Red Blood Count 3.72 M/mm3 (4.6-6.2); White Blood Count 6.9 K/mm3 (4.4-11.0)
[2019-11-30 04:09] LABS: Differential Indicated SCAN CRITERIA MET
[2019-11-30 04:15] LABS: International Normalized Ratio 1.3; Prothrombin Time (Protime)PT. 15.6 SECONDS (11.7-14.9)
[2019-11-30 04:26] LABS: ALB/GLOB Ratio 0.9 RATIO (0.9-2.4); AST(SGOT) 47 U/L (15-37); Alanine Aminotransfer ALT/SGPT 47 U/L (16-61); Albumin, Serum 2.9 g/dL (3.2-5.0); Alkaline Phosphatase 77 U/L (45-117); Anion Gap 2 (5-15); BUN 18 mg/dL (7-18); BUN/Creat Ratio 19.2 RATIO (10-20); Calcium,Total 7.1 mg/dL (8.5-10.1); Chloride 103 mmol/L (98-107); Creatinine, Serum 0.94 mg/dL (0.70-1.30); EST Glomerular Filtration Rate 85 mL/min (>60); Est Glom Filt Rate - Afr Amer 102 mL/min (>60); Estimated Creatinine Clearance 76.58 ml/min; Globulin 3.4 g/dL (2.2-4.2); Glucose 109 mg/dL (74-106); Magnesium 1.5 mg/dL (1.6-2.6); Potassium 3.8 mmol/L (3.5-5.1); Protein, Total 6.3 g/dL (6.4-8.2); Sodium Level 139 mmol/L (136-145)
[2019-11-30 04:36] LABS: Differential Comment SCANNED; Macrocytosis RARE
--- NOTE | 2019-11-30 06:38 | PCM.PN.INT ---
Subjective: Patient did okay overnight. Patient did have an episode of confusion related to high fevers overnight. Patient did not have to be initiated on pressors or receive increase FiO2. Blood sugars have been stable. Patient states he feels subjectively improved compared to yesterday. General: Alert, Oriented x3, Cooperative, No apparent distress, Well developed, Well nourished, - - Obese. Speaking in full sentences. HEENT: Atraumatic, PERRLA, EOMI, Normocephalic, - - No scleral icterus or injection noted. Oral: Moist Mucosa, No Gingival or Mucosal Lesions/ Ulcerations, - - Crowded posterior pharynx Neck: Supple, No Nodes, Trachea Midline Lungs: No rhonchi, No wheeze, No rales, Diminished, - - Symmetric expansion. No dullness to percussion. Cardiovascular: Regular rate, Regular Rhythm, Normal S1, Normal S2, No murmurs, No rub noted, No Gallop Abdomen: Bowel Sounds Present, Soft, Non Tender, Non-Distended, Obese Extremities: No clubbing, No cyanosis, Edema Skin: - - No change compared to previous Musculoskeletal: No Tenderness to Palpation of Joints or Extremities Lymphatic: No Cervical, Supraclavicular, or Inguinal Adenopathy Neurological: Cranial nerves II-XII grossly intact, Neuro grossly intact, Motor Exam 5/5 strength throughout Psych/Mental Status: Normal Affect, Appropriate Vital Signs Temp Pulse Resp BP Pulse Ox 36.4 C L 75 18 136/66 H 98 11/30/19 04:00 11/30/19 06:22 11/30/19 06:00 11/30/19 06:00 11/30/19 06:00 Oxygen Flow Rate (L/min) 3 Oxygen Delivery Method Nasal Cannula Weight: 112.9 kg Body Mass Index (BMI) 35.6 Finger Stick Blood Glucose 138 Intake and Output for Last 24 Hours 11/28/19 11/29/19 11/30/19 23:59 23:59 23:59 Intake Total 3832.8 / 3832.8 120 / 120 Output Total 325 / 325 225 / 225 Balance 3507.8 / 3507.8 -105 / -105 Labs (Last 48 Hours) 11/29/19 11/29/19 11/29/19 09:25 09:25 09:25 WBC 9.0 RBC 4.20 L Hgb 14.1 Hct 42.3 MCV 100.7 H MCH 33.6 H MCHC 33.3 RDW Std Deviation 48.1 H RDW Coeff of Cinda 13.0 Plt Count 110 L MPV 10.6 Immature Gran % (Auto) 0.300 Neut % (Auto) 96.8 H Lymph % (Auto) 2.2 L [place] % (Auto) 0.3 Eos % (Auto) 0.3 Baso % (Auto) 0.1 Absolute Neuts (auto) 8.7 H Absolute Lymphs (auto) 0.20 L Nucleated RBC % 0 Differential Comment SCANNED Macrocytosis PT INR Sodium 137 Potassium 3.3 L Chloride 100 Carbon Dioxide 31.0 Anion Gap 6 BUN 16 Creatinine 1.03 Estim Creat Clear Calc 69.89 Est GFR (MDRD) Af Amer 92 Est GFR (MDRD) Non-Af 76 BUN/Creatinine Ratio 15.5 Glucose 210 H Lactic Acid 3.1 H* Calcium 7.9 L Magnesium Total Bilirubin 1.20 H AST 14 L ALT 31 Alkaline Phosphatase 108 Troponin I < 0.015 Total Protein 7.4 Albumin 3.6 Globulin 3.8 Albumin/Globulin Ratio 0.9 Urine Color Urine Clarity Urine pH Ur Specific [place] Urine Protein Urine Glucose (UA) Urine Ketones Urine Occult Blood Urine Nitrite Urine Bilirubin Urine Urobilinogen Ur Leukocyte Esterase Urine RBC Urine WBC Ur Squamous Epith Cells Urine Bacteria Urine Mucus COVID-19 (SAULO) MRSA (PCR) POC Glucose 11/29/19 11/29/19 11/29/19 11:40 14:25 14:45 WBC RBC Hgb Hct MCV MCH MCHC RDW Std Deviation RDW Coeff of Cinda Plt Count MPV Immature Gran % (Auto) Neut % (Auto) Lymph % (Auto) [place] % (Auto) Eos % (Auto) Baso % (Auto) Absolute Neuts (auto) Absolute Lymphs (auto) Nucleated RBC % Differential Comment Macrocytosis PT INR Sodium Potassium Chloride Carbon Dioxide Anion Gap BUN Creatinine Estim Creat Clear Calc Est GFR (MDRD) Af Amer Est GFR (MDRD) Non-Af BUN/Creatinine Ratio Glucose Lactic Acid 2.8 H* Calcium Magnesium Total Bilirubin AST ALT Alkaline Phosphatase Troponin I Total Protein Albumin Globulin Albumin/Globulin Ratio Urine Color Yellow Urine Clarity Cloudy Urine pH 7.0 Ur Specific [place] 1.010 Urine Protein 30 H Urine Glucose (UA) 1000 H Urine Ketones 15 H Urine Occult Blood 150 H Urine Nitrite Positive H Urine Bilirubin Negative Urine Urobilinogen Normal Ur Leukocyte Esterase 500 H Urine RBC 0 SEEN Urine WBC >100 SEEN Ur Squamous Epith Cells 0 SEEN Urine Bacteria 2+ Urine Mucus 0 SEEN COVID-19 (SAULO) MRSA (PCR) Negative POC Glucose 11/29/19 11/29/19 11/29/19 16:49 19:41 20:15 WBC RBC Hgb Hct MCV MCH MCHC RDW Std Deviation RDW Coeff of Cinda Plt Count MPV Immature Gran % (Auto) Neut % (Auto) Lymph % (Auto) [place] % (Auto) Eos % (Auto) Baso % (Auto) Absolute Neuts (auto) Absolute Lymphs (auto) Nucleated RBC % Differential Comment Macrocytosis PT INR Sodium Potassium Chloride Carbon Dioxide Anion Gap BUN Creatinine Estim Creat Clear Calc Est GFR (MDRD) Af Amer Est GFR (MDRD) Non-Af BUN/Creatinine Ratio Glucose Lactic Acid Calcium Magnesium Total Bilirubin AST ALT Alkaline Phosphatase Troponin I Total Protein Albumin Globulin Albumin/Globulin Ratio Urine Color Urine Clarity Urine pH Ur Specific [place] Urine Protein Urine Glucose (UA) Urine Ketones Urine Occult Blood Urine Nitrite Urine Bilirubin Urine Urobilinogen Ur Leukocyte Esterase Urine RBC Urine WBC Ur Squamous Epith Cells Urine Bacteria Urine Mucus COVID-19 (SAULO) Not Detected MRSA (PCR) POC Glucose 135 H 132 H 11/30/19 11/30/19 11/30/19 03:55 03:55 03:55 WBC 6.9 RBC 3.72 L Hgb 12.6 L Hct 37.9 L MCV 101.9 H MCH 33.9 H MCHC 33.2 RDW Std Deviation 50.4 H RDW Coeff of Cinda 13.2 Plt Count 80 L MPV 10.1 Immature Gran % (Auto) 0.400 Neut % (Auto) 88.5 H Lymph % (Auto) 4.5 L [place] % (Auto) 4.9 Eos % (Auto) 1.6 Baso % (Auto) 0.1 Absolute Neuts (auto) 6.1 Absolute Lymphs (auto) 0.31 L Nucleated RBC % 0 Differential Comment SCANNED Macrocytosis RARE PT 15.6 H INR 1.3 Sodium 139 Potassium 3.8 Chloride 103 Carbon Dioxide 34.0 H Anion Gap 2 L BUN 18 Creatinine 0.94 Estim Creat Clear Calc 76.58 Est GFR (MDRD) Af Amer 102 Est GFR (MDRD) Non-Af 85 BUN/Creatinine Ratio 19.2 Glucose 109 H Lactic Acid Calcium 7.1 L Magnesium 1.5 L Total Bilirubin 1.30 H AST 47 H ALT 47 Alkaline Phosphatase 77 Troponin I Total Protein 6.3 L Albumin 2.9 L Globulin 3.4 Albumin/Globulin Ratio 0.9 Urine Color Urine Clarity Urine pH Ur Specific [place] Urine Protein Urine Glucose (UA) Urine Ketones Urine Occult Blood Urine Nitrite Urine Bilirubin Urine Urobilinogen Ur Leukocyte Esterase Urine RBC Urine WBC Ur Squamous Epith Cells Urine Bacteria Urine Mucus COVID-19 (SAULO) MRSA (PCR) POC Glucose Clinical Impression(s) from Imaging Studies Chest X-Ray 11/29/19 09:02 IMPRESSION: Stable examination. Electronically Signed: Mick García at 10:18 EDT , Service support , Brain CT 11/29/19 20:04 IMPRESSION: Mild atrophy. No visualized evidence of acute hemorrhage infarct or edema. Mild sinusitis. Electronically Signed: Kristyn Zhang MD at 23:26 EDT Tel , Service support , Medical Necessity - Tobacco Use Smoking Status: Former smoker Assessment/Plan All Active Problems (Last Reviewed 11/29/19 @ 16:[address] Varsha Short, DO) UTI (urinary tract infection) (Acute) Lactic acid acidosis (Acute) Hypokalemia (Acute) History of coronary artery stent placement (Resolved) H/O coronary artery bypass surgery (Resolved) Chest pain (Acute) CONI (acute kidney injury) (Acute) Abnormal EKG (Acute) Chest wall contusion (Acute) Atypical chest pain (Acute) RECOMMENDATIONS: 1. Continue current antibiotics pending culture results 2. Monitor with telemetry 3. Continue home CPAP 4. Continue current subcu insulin regimen. Consider adding sliding scale insulin 5. Hemodynamically stable on baseline nasal cannula oxygen. Okay to transfer from the intensive care unit IMPRESSIONS: 1. Severe sepsis secondary to UTI Clinical suspicion for severe sepsis secondary to UTI. Patient does not have a significant leukocytosis at this time, but this may be secondary to partial treatment with doxycycline. Patient does have a left shift noted along with bacteria in the urine. Doxycycline would not be a great medication for a urinary tract infection. Patient has had multiple positive cultures in the past, but no significant resistance patterns have been noted. Patient was significant fever overnight, likely secondary to UTI. Patient has remained hemodynamically stable. Likely okay to leave the intensive care unit. 2. Chronic hypoxic respiratory failure/EKATERINA Unclear etiology at this time his history is very limited. Will keep saturations at appropriate levels. Patient reportedly has been on oxygen for several years. Unclear if this is secondary to obesity hypoventilation. Patient is typically cared for at the [facility]. Would continue with normal treatment for sleep disordered breathing. Lack of CPAP overnight may have contributed to confusion 3. Diabetes mellitus/obesity/hypertension/hyperlipidemia/recent stroke Complicates care, management, recovery and prognosis. Continue with every 6 blood sugar checks. Patient is on a significant amount of insulin, but states this is what it takes. If anything would suggest the patient would be hyperglycemic given his endogenous steroid release secondary to problem #1. Okay to continue with baseline medications for now. No new neurologic findings are noted. Inpatient E&M: [id number] [facility] L3
--- NOTE | 2019-11-30 07:56 | PN_ITS ---
Patient Problems: Active and Suspected Problems (Last Reviewed 11/29/19 @ 16:[address] Varsha Short, DO) UTI (urinary tract infection) (Acute) Lactic acid acidosis (Acute) Hypokalemia (Acute) Chest pain (Acute) CONI (acute kidney injury) (Acute) Abnormal EKG (Acute) Chest wall contusion (Acute) Atypical chest pain (Acute) Subjective: Febrile with temp of 103 last pm. Better now. Had confusion when he was febrile but his too is resolved. Pt states that he is feeling some better today. States that he would like some juice Vitals/I&O's: Vital Signs Temp Pulse Resp BP Pulse Ox 97.6 F L 75 18 136/66 H 98 11/30/19 04:00 11/30/19 06:22 11/30/19 06:00 11/30/19 06:00 11/30/19 06:00 Oxygen Flow Rate (L/min) 3 Oxygen Delivery Method Nasal Cannula Weight: 112.9 kg Body Mass Index (BMI) 35.6 Finger Stick Blood Glucose 138 Intake and Output for Last 24 Hours 11/28/19 11/29/19 11/30/19 23:59 23:59 23:59 Intake Total 3832.8 / 3832.8 120 / 120 Output Total 325 / 325 225 / 225 Balance 3507.8 / 3507.8 -105 / -105 General: Alert, Oriented x3, Cooperative, No apparent distress, Well developed, Well nourished, - - obese WM, lying in bed on cell phone taking to his HEENT: Atraumatic, PERRLA, EOMI, Normocephalic, EAC Clear Oral: Moist Mucosa, No Gingival or Mucosal Lesions/ Ulcerations, - - poor dentition Neck: Supple, Trachea Midline Lungs: Clear to auscultation, No rhonchi, No wheeze, No rales, Diminished - diffusely Cardiovascular: Regular rate, Regular Rhythm, Normal S1, Normal S2, No murmurs, No Ectopic Activity, No rub noted, No Gallop, - - distant Abdomen: Bowel Sounds Present, Soft, Non Tender, Non-Distended, Obese, Hernia - umbilical-reducible and soft Extremities: No clubbing, No cyanosis, No edema, Capillary Refill Less than 3 Seconds, Peripheral Pulses Normal Skin: No rashes, No breakdown Musculoskeletal: No Tenderness to Palpation of Joints or Extremities, No Muscle Wasting, Arthritic Changes Lymphatic: No Cervical, Supraclavicular, or Inguinal Adenopathy Neurological: - - chronic L sided weakness, with dysarthria Psych/Mental Status: Normal Affect, Appropriate Laboratory Results 11/29/19 09:25: WBC 9.0, RBC 4.20 L, Hgb 14.1, Hct 42.3, MCV 100.7 H, MCH 33.6 H , MCHC 33.3, RDW Std Deviation 48.1 H, RDW Coeff of Cinda 13.0, Plt Count 110 L, MPV 10.6, Immature Gran % (Auto) 0.300, Neut % (Auto) 96.8 H, Lymph % (Auto) 2.2 L, [place] % (Auto) 0.3, Eos % (Auto) 0.3, Baso % (Auto) 0.1, Absolute Neuts (auto) 8.7 H, Absolute Lymphs (auto) 0.20 L, Nucleated RBC % 0, Differential Comment SCANNED 11/29/19 09:25: Sodium 137, Potassium 3.3 L, Chloride 100, Carbon Dioxide 31.0, Anion Gap 6, BUN 16, Creatinine 1.03, Estim Creat Clear Calc 69.89, Est GFR (MDRD) Af Amer 92, Est GFR (MDRD) Non-Af 76, BUN/Creatinine Ratio 15.5, Glucose 210 H, Calcium 7.9 L, Total Bilirubin 1.20 H, AST 14 L, ALT 31, Alkaline Phosphatase 108, Troponin I < 0.015, Total Protein 7.4, Albumin 3.6, Globulin 3.8, Albumin/Globulin Ratio 0.9 11/29/19 09:25: Lactic Acid 3.1 H* 11/29/19 11:40: Urine Color Yellow, Urine Clarity Cloudy, Urine pH 7.0, Ur Specific [place] 1.010, Urine Protein 30 H, Urine Glucose (UA) 1000 H, Urine Ketones 15 H, Urine Occult Blood 150 H, Urine Nitrite Positive H, Urine Bilirubin Negative, Urine Urobilinogen Normal, Ur Leukocyte Esterase 500 H, Urine RBC 0 SEEN, Urine WBC >100 SEEN, Ur Squamous Epith Cells 0 SEEN, Urine Bacteria 2+, Urine Mucus 0 SEEN 11/29/19 14:25: Lactic Acid 2.8 H* 11/29/19 14:45: MRSA (PCR) Negative 11/29/19 16:49: POC Glucose 135 H 11/29/19 19:41: POC Glucose 132 H 11/29/19 20:15: COVID-19 (SAULO) Not Detected 11/30/19 03:55: WBC 6.9, RBC 3.72 L, Hgb 12.6 L, Hct 37.9 L, MCV 101.9 H, MCH 33.9 H, MCHC 33.2, RDW Std Deviation 50.4 H, RDW Coeff of Cinda 13.2, Plt Count 80 L, MPV 10.1, Immature Gran % (Auto) 0.400, Neut % (Auto) 88.5 H, Lymph % (Auto) 4.[address] L, [place] % (Auto) 4.9, Eos % (Auto) 1.6, Baso % (Auto) 0.1, Absolute Neuts (auto) 6.1, Absolute Lymphs (auto) 0.31 L, Nucleated RBC % 0, Differential Comment SCANNED, Macrocytosis RARE 11/30/19 03:55: PT 15.6 H, INR 1.3 11/30/19 03:55: Sodium 139, Potassium 3.8, Chloride 103, Carbon Dioxide 34.0 H, Anion Gap 2 L, BUN 18, Creatinine 0.94, Estim Creat Clear Calc 76.58, Est GFR (MDRD) Af Amer 102, Est GFR (MDRD) Non-Af 85, BUN/Creatinine Ratio 19.2, Glucose 109 H, Calcium 7.1 L, Magnesium 1.5 L, Total Bilirubin 1.30 H, AST 47 H, ALT 47, Alkaline Phosphatase 77, Total Protein 6.3 L, Albumin 2.9 L, Globulin 3.4, Albumin/Globulin Ratio 0.9 Current Medications Acetaminophen (Acetaminophen 325 Mg Tablet) 650 mg PO Q6H PRN PRN PRN Reason: Pain Score 1-10/Temp > 100.7 F Last Admin: 11/29/19 20:35 Dose: 650 mg Documented by: Al Hydroxide/Mg Hydroxide (Mag Hydrox/Al Hydrox/Simeth 30 Ml Udc) 30 ml PO Q6H PRN PRN PRN Reason: Gastric Burning Aspirin (Aspirin E.C. 81 Mg Tablet) 81 mg PO DAILY@0800 [facility]LEXUS Atorvastatin Calcium (Atorvastatin Calcium 80 Mg Tablet) 80 mg PO QHS [facility] Last Admin: 11/29/19 20:42 Dose: 80 mg Documented by: Carvedilol (Carvedilol 12.5 Mg Tablet) 12.5 mg PO BID [facility] Last Admin: 11/29/19 20:43 Dose: 12.5 mg Documented by: Cholecalciferol (Cholecalciferol (Vit D3) 1,000 Unit (25mcg)) 3,000 unit PO DAILY [facility] Clopidogrel Bisulfate (Clopidogrel Bisulfate 75 Mg Tablet) 75 mg PO DAILY [facility] Enoxaparin Sodium (Enoxaparin 40 Mg/0.4 Ml Syringe) 40 mg SC DAILY [facility] Escitalopram Oxalate (Escitalopram Oxalate 10 Mg Tablet) 10 mg PO DAILY [facility] Finasteride (Finasteride 5 Mg Tablet) 5 mg PO DAILY [facility] Guaifenesin (Guaifenesin 10 Ml Udc (200mg/10ml)) 10 ml PO TID PRN PRN PRN Reason: COUGH Ceftriaxone Sodium (Rocephin) 1 gm in 50 mls @ 100 mls/hr IV Q24 [facility]LEX[facility] Magnesium Sulfate 2 gm/ Sodium (Chloride) 104 mls @ 52 mls/hr IV X1 ONE Stop: 11/30/19 09:59 Insulin Human Regular (Insulin U-500 Pen) 195 units SC BREAKFAST [facility] Insulin Human Regular (Insulin U-500 Pen) 195 units SC DINNER [facility] Last Admin: 11/29/19 16:50 Dose: 195 units Documented by: Liraglutide (Liraglutide 0.6 Mg/0.1 Ml Pen.Injctr) 0.6 mg SQ DAILY [facility] Melatonin (Melatonin 3 Mg Tablet) 3 mg PO QHS PRN PRN PRN Reason: INSOMNIA Morphine Sulfate (Morphine 4 Mg/Ml Syringe) 4 mg IV Q3H PRN PRN PRN Reason: Pain Score 6-10 Last Admin: 11/30/19 03:52 Dose: 4 mg Documented by: Multivitamins/Minerals (Multivitamins,Ther W-Minerals Tablet) [facility] Nitroglycerin (Nitroglycerin (Inpatient Use) 0.4 Mg Tab.Subl) 0.4 mg SUBLINGUAL Q5M PRN PRN Reason: CHEST Ondansetron HCl (Ondansetron 4 Mg/2 Ml Vial) 4 mg IV Q8H PRN PRN PRN Reason: NAUSEA/VOMITING Pantoprazole Sodium (Pantoprazole Sodium 40 Mg Tablet) 40 [facility] Last Admin: 11/29/19 16:53 Dose: 40 mg Documented by: Ranolazine (Ranolazine 500 Mg Tablet) 1,000 mg PO BID [facility] Last Admin: 11/29/19 20:43 Dose: 1,000 mg Documented by: Senna/Docusate Sodium (Senna/Docusate Sodium 1 Tablet) 2 tablet PO BID PRN PRN Reason: Constipation Sodium Chloride (0.9% Saline Lock 10 Ml Syringe) 10 - 40 ml IV UD PRN PRN Reason: SALINE FLUSH Last Admin: 11/30/19 03:54 Dose: 10 ml Documented by: Tamsulosin HCl (Tamsulosin Hcl 0.4 Mg Capsule) 0.8 mg PO QHS [facility] Last Admin: 11/29/19 20:43 Dose: 0.8 mg Documented by: STROKE Vital Signs/Narrative: Vital Signs Temp Pulse Resp BP Pulse Ox 11/30/19 06:22 75 11/30/19 06:00 74 18 136/66 H 98 11/30/19 05:00 73 18 120/68 100 11/30/19 04:00 97.6 F L 72 17 164/53 H 99 Medical Necessity - Tobacco Use Smoking Status: Former smoker Assessment/Plan All Active Problems (Last Reviewed 11/29/19 @ 16:[address] Varsha Short, DO) UTI (urinary tract infection) (Acute) Lactic acid acidosis (Acute) Hypokalemia (Acute) History of coronary artery stent placement (Resolved) H/O coronary artery bypass surgery (Resolved) Chest pain (Acute) CONI (acute kidney injury) (Acute) Abnormal EKG (Acute) Chest wall contusion (Acute) Atypical chest pain (Acute) Severe Sepsis 2/2 UTI -has elevated lactate at 3.1 and source of infection--> had fever of 103 overnight and now meets criteria for severe sepsis -continue CTX 2 gm daily -blood and urine cx pending -MRSA PCR negative -hep lock fluids -check retroperitoneal US to assess kidneys with infection and recurrent UTI -transfer [place] [facility] [place] Lactic Acidosis -resolved Hypokalemia -resolved Hypomagnesemia -2 gm and repeat in am Chronic Respiratory Failure 2/2 COPD -baseline lung fxn unknown--> follows at [facility] -continue O2 at baseline 3 L -monitor HTN/HPL/CAD with h/o CABG/h/o stroke -continue Coreg/statin/ASA/Plavix/Ranexa -restart Lasix 20 mg -chronic L sided weakness and dysarthria EKATERINA -CPAP at hs DM-2 -on U500 at 195 u BID -continue above and watch BGT AC and HS -recently started on Victoza per -continue -monitor and add SSI if needed BPH -continue flomax and proscar Depression -continue Lexapro Vitamin D deficiency -continue D3 DVT Prophylaxis -SCD and Lovenox Code Status -Full Dispo -Transfer out of ICU -possible D/C tomorrow if stable and able to do PO ABX Inpatient E&M: [id number] [facility] L3
[2019-11-30] MEDS: Ranolazine 500 MG Tablet 1000 MG PO ×2 (08:55→20:52)
[2019-11-30] MEDS: Aspirin E.C. 81 MG Tablet PO (08:56)
[2019-11-30] MEDS: Pantoprazole Sodium 40 MG Tablet PO ×2 (08:56→18:09)
[2019-11-30] MEDS: Clopidogrel Bisulfate 75 MG Tablet PO (08:56)
[2019-11-30] MEDS: Multivitamins,Ther W-Minerals Tablet 1 TABLET PO (08:56)
[2019-11-30] MEDS: Finasteride 5 MG Tablet PO (08:56)
[2019-11-30] MEDS: Escitalopram Oxalate 10 MG Tablet PO (08:56)
[2019-11-30] MEDS: Carvedilol 12.5 MG Tablet PO ×2 (08:56→20:51)
[2019-11-30 09:10] LABS: Bedside Glucose 109 mg/dL (70-110)
--- NOTE | 2019-11-30 10:35 | CASEMGMT ---
KRISTI GERONIMO re-admission note: Prior admission: Pt admitted 11/09/19 with CP and discharged 11/10/19. Pt had indeterminant troponinc x 1, but they did not trend up. Cardiology was consulted and medical mgmt recommended. Pt to f/u with PCP @ the [facility] and had upcoming appt with [facility] cardiology in November. Pt has home O2 @ 3 L/M N/C. Pt was discharged home w/his , Lucina. Current admission: Admitted 11/29/19 with Sepsis secondary to UTI. KRISTI GERONIMO to room to talk with pt. Pt sitting up in recliner chair in room. Awake/alert/oriented. [place]. Introduced self and role of KRISTI GERONIMO. Discussed w/pt how things have been going since he returned home. Pt states, They've been okay. He states he typically gets around @ home w/his scooter and that he has been pretty weak. He wishes to return home @ discharge. Discussed option for HHC and pt is agreeable. Pt given list of local HHC agencies. He states he does not have a preference. Pt has had [facility] in the past and is agreeable to [facility] at this time. Call placed to Swapna @ [facility] and referral made for SN, PT/OT. She was made aware anticipate pt will discharge tomorrow 11/30. She states they are able to accept pt. Pt made aware. KRISTI GERONIMO also spoke w/pt's via phone and she was made aware. states she was not able to get pt in for an appointment @ the [facility] until Jan 04 and asked this KRISTI GERONIMO if assistance could be given to get pt in for an earlier appointment if possible. KRISTI GERONIMO placed to [facility]. message for Dr Blount's nurse. Awaiting call back. states pt has been taking his medications as prescribed. She states she manages his medications and was just filling his weekly pill box and realized he is almost out if his acid pill and is not sure if there are any refills remaining for her to have this filled. She states pt gets his meds through the mail and she will call and inquire about this. /pt deny having any other needs, concerns, or questions at this time. Pt has [place] benefits. Discussed option to transfer to [facility]. Pt states he wishes to remain @ [facility] and have hospitalization billed through [employer]. Reviewed Declination to transfer form with pt, pt signed form, copy made and placed on chart, and original given to pt. Form [facility] at this time. [facility]: Dr Blount Wendy JUANN RN CM
[2019-11-30] MEDS: Ceftriaxone 1 GM/50 ML BAG IV (11:08)
[2019-11-30] MEDS: Acetaminophen 325 MG Tablet 650 MG PO (11:08)
[2019-11-30] MEDS: Furosemide 20 MG Tablet PO (11:08)
[2019-11-30] MEDS: oxyCODONE 5 MG Tablet PO ×2 (13:33→20:50)
[2019-11-30 18:25] LABS: Bedside Glucose 118 mg/dL (70-110)
--- NOTE | 2019-11-30 18:33 | NURSING ---
Pt had to be awoken to give him supper and meds. Pt difficult to awaken. He started talking in mumbled language. Did open his eyes to loud verbal stimuli but will not converse. VSS. Pt was reported to do the same things last evening. Called pt's to see if she could bring in his home CPAP as he did not want to wear ours last night. Pt's reports that pt has episodes where he will talk after waking up and you can't understand him. This happens both when he wears his BiPap and when he doesn't. reports they are like a seizure but they call them non-seizures, I forgot to tell the hospital dr that. states she is cooking her supper now and then will bring his CPAP in for pt to use. Text page sent to Dr Short to inform her of this information.
[2019-11-30 20:31] LABS: Bedside Glucose 92 mg/dL (70-110)
[2019-11-30] MEDS: Tamsulosin HCl 0.4 MG Capsule 0.8 MG PO (20:51)
[2019-11-30] MEDS: Atorvastatin Calcium 80 MG Tablet PO (20:52)
[2019-11-30] MEDS: guaiFENesin 10 ML UDC (200MG/10ML) PO (20:52)
[2019-12-01] VITALS (9 sets, daily range): BP systolic 111–130; BP diastolic 58–73; PULSE 60–74; RESP 14–17; TEMP 36.1–36.5; O2SAT 94–98
[2019-12-01] MEDS: Acetaminophen 325 MG Tablet 650 MG PO (02:50)
[2019-12-01 03:01] LABS: Bedside Glucose 137 mg/dL (70-110)
[2019-12-01 03:55] LABS: Absolute Lymphocyte Count 0.58 X10^3/uL (0.83-4.51); Absolute Neutrophil Count 3.1 X10^3/uL (2.0-7.7); Basophil# 0.01 X10^3/uL; Basophil% 0.2 % (0-1); Differential Indicated SCAN CRITERIA MET; Eosinophil# 0.05 X10^3/uL; Eosinophils% 1.2 % (0-5); Hematocrit 34.6 % (40-54); Hemoglobin 11.4 g/dL (13.0-16.5); Lymphocyte # 0.58 X10^3/ul (4.0); Mean Corp Hgb Conc 32.9 g/dL (32-36); Mean Corpuscular Hgb 33.4 pg (27.0-32.0); Mean Corpuscular Volume 101.5 fL (80-94); Mean Platelet Vol. 10.5 fl (6.2-12.0); Monocyte# 0.38 X10^3/uL; Monocyte% 9.2 % (0-10); NRBC Flagged by Analyzer 0 % (0-5); Neutrophil # 3.12 X10^3/uL (2.7-7.7); Neutrophil % 75.2 % (47-70); POSITIVE COUNT YES; POSITIVE DIFFERENTIAL YES; Platelet Count 85 K/mm3 (150-450); RBC Distribution Width CV 13.2 % (11.6-14.6); RBC Distribution Width SD 49.7 fl (35.1-43.9); Red Blood Count 3.41 M/mm3 (4.6-6.2); White Blood Count 4.2 K/mm3 (4.4-11.0)
[2019-12-01 04:00] LABS: Anion Gap 5 (5-15); BUN 19 mg/dL (7-18); BUN/Creat Ratio 20.5 RATIO (10-20); Calcium,Total 7.3 mg/dL (8.5-10.1); Chloride 104 mmol/L (98-107); Creatinine, Serum 0.93 mg/dL (0.70-1.30); EST Glomerular Filtration Rate 86 mL/min (>60); Est Glom Filt Rate - Afr Amer 104 mL/min (>60); Glucose 111 mg/dL (74-106); Magnesium 1.7 mg/dL (1.6-2.6); Potassium 3.5 mmol/L (3.5-5.1); Sodium Level 140 mmol/L (136-145)
[2019-12-01 04:14] LABS: Differential Comment SCANNED
[2019-12-01 04:16] LABS: Platelet Estimate MOD DEC (ADEQ)
--- NOTE | 2019-12-01 05:55 | US_ITS ---
STUDY: RENAL ULTRASOUND - COMPLETE REASON FOR EXAM: Male, 69 years old. Uti w/sepsis TECHNIQUE: Ultrasound evaluation of the kidneys was performed with real-time and static rose-scale imaging. COMPARISON: None. FINDINGS: RIGHT KIDNEY: Normal location of the right kidney, which is normal in size. The right kidney measures 13 cm x 6.7 cm x 7.1 cm. There is a normal cortex of the right kidney. The renal cortex measures 1.8 cm. There is evidence of a 2.1 cm x 1.6 cm right renal cyst. There are no right renal calculi. There is no right hydronephrosis. DISTAL RIGHT URETER: There is non-visualization of the distal right ureter. There is no demonstrated right ureterovesical junction calculus. There is no demonstrated right ureteral jet. LEFT KIDNEY: Normal location of the left kidney, which is normal in size. The left kidney measures 14.2 cm x 6.4 cm x 7.2 cm. There is a normal cortex of the left kidney. The renal cortex measures 1.9 cm. There is no left renal mass or cyst. There are no left renal calculi. There is no left hydronephrosis. DISTAL LEFT URETER: There is non-visualization of the distal left ureter. There is no demonstrated left ureterovesical junction calculus. There is no demonstrated left ureteral jet. BLADDER: The distended urinary bladder has a volume of 197 ml. There is a normal wall thickness of the distended urinary bladder. There is no demonstrated mass within the urinary bladder. There are no demonstrated bladder calculi. US/Kidney and Bladder IMPRESSION: 2.1 cm x 1.6 cm right renal cyst. Electronically Signed: Mick García, at 10:53 EDT , Service support ,
--- NOTE | 2019-12-01 06:33 | PN_ITS ---
Subjective: Patient did well overnight. Patient was able to use his home CPAP and has been on 2 L nasal cannula otherwise. Patient's blood pressure has remained stable and his mentation is much improved following resolution of fever. General: Alert, Oriented x3, Cooperative, No apparent distress, - - Obese. Speaking in full sentences. HEENT: Atraumatic, PERRLA, EOMI, Normocephalic, - - No scleral icterus or injection noted Oral: Moist Mucosa, No Gingival or Mucosal Lesions/ Ulcerations Neck: Supple, No JVD, No Nodes, Trachea Midline Lungs: No rhonchi, No wheeze, No rales, Diminished Cardiovascular: Regular rate, Regular Rhythm, Normal S1, Normal S2, No murmurs, No rub noted, No Gallop, - - Paced rhythm on telemetry Abdomen: Bowel Sounds Present, Soft, Non Tender, Non-Distended, Obese Extremities: No clubbing, No cyanosis, Capillary Refill Less than 3 Seconds, Edema Skin: - - No change compared to previous Musculoskeletal: No Tenderness to Palpation of Joints or Extremities Lymphatic: No Cervical, Supraclavicular, or Inguinal Adenopathy Neurological: Cranial nerves II-XII grossly intact, Neuro grossly intact, Motor Exam 5/5 strength throughout Psych/Mental Status: Alert and oriented to time, place, person, mood and affect Vital Signs Temp Pulse Resp BP Pulse Ox 36.5 C L 62 17 125/60 H 98 12/01/19 02:33 12/01/19 03:59 12/01/19 02:39 12/01/19 02:33 12/01/19 02:33 Oxygen Flow Rate (L/min) 3 Oxygen Delivery Method CPAP Weight: 114.3 kg Body Mass Index (BMI) 35.6 Finger Stick Blood Glucose 138 Intake and Output for Last 24 Hours 11/29/19 11/30/19 12/01/19 23:59 23:59 23:59 Intake Total 3832.8 / 3832.8 524 / 524 250 / 250 Output Total 325 / 325 1000 / 1000 Balance 3507.8 / 3507.8 -476 / -476 250 / 250 Labs (Last 48 Hours) 11/29/19 11/29/19 11/29/19 09:25 09:25 09:25 WBC 9.0 RBC 4.20 L Hgb 14.1 Hct 42.3 MCV 100.7 H MCH 33.6 H MCHC 33.3 RDW Std Deviation 48.1 H RDW Coeff of Cinda 13.0 Plt Count 110 L MPV 10.6 Immature Gran % (Auto) 0.300 Neut % (Auto) 96.8 H Lymph % (Auto) 2.2 L Archer % (Auto) 0.3 Eos % (Auto) 0.3 Baso % (Auto) 0.1 Absolute Neuts (auto) 8.7 H Absolute Lymphs (auto) 0.20 L Nucleated RBC % 0 Differential Comment SCANNED Diff Path Review Platelet Estimate Macrocytosis PT INR Sodium 137 Potassium 3.3 L Chloride 100 Carbon Dioxide 31.0 Anion Gap 6 BUN 16 Creatinine 1.03 Estim Creat Clear Calc 69.89 Est GFR (MDRD) Af Amer 92 Est GFR (MDRD) Non-Af 76 BUN/Creatinine Ratio 15.5 Glucose 210 H Lactic Acid 3.1 H* Calcium 7.9 L Magnesium Total Bilirubin 1.20 H AST 14 L ALT 31 Alkaline Phosphatase 108 Troponin I < 0.015 Total Protein 7.4 Albumin 3.6 Globulin 3.8 Albumin/Globulin Ratio 0.9 Urine Color Urine Clarity Urine pH Ur Specific [place] Urine Protein Urine Glucose (UA) Urine Ketones Urine Occult Blood Urine Nitrite Urine Bilirubin Urine Urobilinogen Ur Leukocyte Esterase Urine RBC Urine WBC Ur Squamous Epith Cells Urine Bacteria Urine Mucus COVID-19 (SAULO) MRSA (PCR) POC Glucose 11/29/19 11/29/19 11/29/19 11:40 14:25 14:45 WBC RBC Hgb Hct MCV MCH MCHC RDW Std Deviation RDW Coeff of Cinda Plt Count MPV Immature Gran % (Auto) Neut % (Auto) Lymph % (Auto) Archer % (Auto) Eos % (Auto) Baso % (Auto) Absolute Neuts (auto) Absolute Lymphs (auto) Nucleated RBC % Differential Comment Diff Path Review Platelet Estimate Macrocytosis PT INR Sodium Potassium Chloride Carbon Dioxide Anion Gap BUN Creatinine Estim Creat Clear Calc Est GFR (MDRD) Af Amer Est GFR (MDRD) Non-Af BUN/Creatinine Ratio Glucose Lactic Acid 2.8 H* Calcium Magnesium Total Bilirubin AST ALT Alkaline Phosphatase Troponin I Total Protein Albumin Globulin Albumin/Globulin Ratio Urine Color Yellow Urine Clarity Cloudy Urine pH 7.0 Ur Specific [place] 1.010 Urine Protein 30 H Urine Glucose (UA) 1000 H Urine Ketones 15 H Urine Occult Blood 150 H Urine Nitrite Positive H Urine Bilirubin Negative Urine Urobilinogen Normal Ur Leukocyte Esterase 500 H Urine RBC 0 SEEN Urine WBC >100 SEEN Ur Squamous Epith Cells 0 SEEN Urine Bacteria 2+ Urine Mucus 0 SEEN COVID-19 (SAULO) MRSA (PCR) Negative POC Glucose 11/29/19 11/29/19 11/29/19 16:49 19:41 20:15 WBC RBC Hgb Hct MCV MCH MCHC RDW Std Deviation RDW Coeff of Cinda Plt Count MPV Immature Gran % (Auto) Neut % (Auto) Lymph % (Auto) Archer % (Auto) Eos % (Auto) Baso % (Auto) Absolute Neuts (auto) Absolute Lymphs (auto) Nucleated RBC % Differential Comment Diff Path Review Platelet Estimate Macrocytosis PT INR Sodium Potassium Chloride Carbon Dioxide Anion Gap BUN Creatinine Estim Creat Clear Calc Est GFR (MDRD) Af Amer Est GFR (MDRD) Non-Af BUN/Creatinine Ratio Glucose Lactic Acid Calcium Magnesium Total Bilirubin AST ALT Alkaline Phosphatase Troponin I Total Protein Albumin Globulin Albumin/Globulin Ratio Urine Color Urine Clarity Urine pH Ur Specific [place] Urine Protein Urine Glucose (UA) Urine Ketones Urine Occult Blood Urine Nitrite Urine Bilirubin Urine Urobilinogen Ur Leukocyte Esterase Urine RBC Urine WBC Ur Squamous Epith Cells Urine Bacteria Urine Mucus COVID-19 (SAULO) Not Detected MRSA (PCR) POC Glucose 135 H 132 H 11/30/19 11/30/19 11/30/19 03:55 03:55 03:55 WBC 6.9 RBC 3.72 L Hgb 12.6 L Hct 37.9 L MCV 101.9 H MCH 33.9 H MCHC 33.2 RDW Std Deviation 50.4 H RDW Coeff of Cinda 13.2 Plt Count 80 L MPV 10.1 Immature Gran % (Auto) 0.400 Neut % (Auto) 88.5 H Lymph % (Auto) 4.5 L Archer % (Auto) 4.9 Eos % (Auto) 1.6 Baso % (Auto) 0.1 Absolute Neuts (auto) 6.1 Absolute Lymphs (auto) 0.31 L Nucleated RBC % 0 Differential Comment SCANNED Diff Path Review Platelet Estimate Macrocytosis RARE PT 15.6 H INR 1.3 Sodium 139 Potassium 3.8 Chloride 103 Carbon Dioxide 34.0 H Anion Gap 2 L BUN 18 Creatinine 0.94 Estim Creat Clear Calc 76.58 Est GFR (MDRD) Af Amer 102 Est GFR (MDRD) Non-Af 85 BUN/Creatinine Ratio 19.2 Glucose 109 H Lactic Acid Calcium 7.1 L Magnesium 1.5 L Total Bilirubin 1.30 H AST 47 H ALT 47 Alkaline Phosphatase 77 Troponin I Total Protein 6.3 L Albumin 2.9 L Globulin 3.4 Albumin/Globulin Ratio 0.9 Urine Color Urine Clarity Urine pH Ur Specific [place] Urine Protein Urine Glucose (UA) Urine Ketones Urine Occult Blood Urine Nitrite Urine Bilirubin Urine Urobilinogen Ur Leukocyte Esterase Urine RBC Urine WBC Ur Squamous Epith Cells Urine Bacteria Urine Mucus COVID-19 (SAULO) MRSA (PCR) POC Glucose 11/30/19 11/30/19 11/30/19 08:30 18:07 20:24 WBC RBC Hgb Hct MCV MCH MCHC RDW Std Deviation RDW Coeff of Cinda Plt Count MPV Immature Gran % (Auto) Neut % (Auto) Lymph % (Auto) Archer % (Auto) Eos % (Auto) Baso % (Auto) Absolute Neuts (auto) Absolute Lymphs (auto) Nucleated RBC % Differential Comment Diff Path Review Platelet Estimate Macrocytosis PT INR Sodium Potassium Chloride Carbon Dioxide Anion Gap BUN Creatinine Estim Creat Clear Calc Est GFR (MDRD) Af Amer Est GFR (MDRD) Non-Af BUN/Creatinine Ratio Glucose Lactic Acid Calcium Magnesium Total Bilirubin AST ALT Alkaline Phosphatase Troponin I Total Protein Albumin Globulin Albumin/Globulin Ratio Urine Color Urine Clarity Urine pH Ur Specific [place] Urine Protein Urine Glucose (UA) Urine Ketones Urine Occult Blood Urine Nitrite Urine Bilirubin Urine Urobilinogen Ur Leukocyte Esterase Urine RBC Urine WBC Ur Squamous Epith Cells Urine Bacteria Urine Mucus COVID-19 (SAULO) MRSA (PCR) POC Glucose 109 118 H 92 12/01/19 12/01/19 12/01/19 02:52 03:35 03:35 WBC 4.2 L RBC 3.41 L Hgb 11.4 L Hct 34.6 L MCV 101.5 H MCH 33.4 H MCHC 32.9 RDW Std Deviation 49.7 H RDW Coeff of Cinda 13.2 Plt Count 85 L MPV 10.5 Immature Gran % (Auto) 0.200 Neut % (Auto) 75.2 H Lymph % (Auto) 14.0 L Archer % (Auto) 9.2 Eos % (Auto) 1.2 Baso % (Auto) 0.2 Absolute Neuts (auto) 3.1 Absolute Lymphs (auto) 0.58 L Nucleated RBC % 0 Differential Comment SCANNED Diff Path Review May foll Platelet Estimate MOD DEC Macrocytosis PT INR Sodium 140 Potassium 3.5 Chloride 104 Carbon Dioxide 31.0 Anion Gap 5 BUN 19 H Creatinine 0.93 Estim Creat Clear Calc 77.40 Est GFR (MDRD) Af Amer 104 Est GFR (MDRD) Non-Af 86 BUN/Creatinine Ratio 20.5 H Glucose 111 H Lactic Acid Calcium 7.3 L Magnesium 1.7 Total Bilirubin AST ALT Alkaline Phosphatase Troponin I Total Protein Albumin Globulin Albumin/Globulin Ratio Urine Color Urine Clarity Urine pH Ur Specific [place] Urine Protein Urine Glucose (UA) Urine Ketones Urine Occult Blood Urine Nitrite Urine Bilirubin Urine Urobilinogen Ur Leukocyte Esterase Urine RBC Urine WBC Ur Squamous Epith Cells Urine Bacteria Urine Mucus COVID-19 (SAULO) MRSA (PCR) POC Glucose 137 H Microbiology 11/29/19 11:40 Urine, Clean Catch Urine Culture - Preliminary Proteus sp. Medical Necessity - Tobacco Use Smoking Status: Former smoker Assessment/Plan All Active Problems (Last Reviewed 11/29/19 @ 16:[address] Varsha Short, DO) UTI (urinary tract infection) (Acute) Lactic acid acidosis (Acute) Hypokalemia (Acute) History of coronary artery stent placement (Resolved) H/O coronary artery bypass surgery (Resolved) Chest pain (Acute) CONI (acute kidney injury) (Acute) Abnormal EKG (Acute) Chest wall contusion (Acute) Atypical chest pain (Acute) RECOMMENDATIONS: 1. Continue current antibiotics pending culture results. Likely okay to transition to p.o. antibiotics once sensitivities available 2. Monitor with telemetry 3. Continue home CPAP 4. Continue current subcu insulin regimen. Consider adding sliding scale insulin 5. Hemodynamically stable on baseline nasal cannula oxygen. Potential discharge home once antibiotic sensitivities available. IMPRESSIONS: 1. Severe sepsis secondary to Proteus UTI Clinical suspicion for severe sepsis secondary to UTI. Patient does not have a significant leukocytosis at this time, but this may be secondary to partial treatment with doxycycline. Patient does have a left shift noted along with bacteria in the urine. Patient is growing Proteus from the urine. Await sensitivities, but once p.o. alternative is available, patient can likely be discharged from a critical care perspective. 2. Chronic hypoxic respiratory failure/EKATERINA Unclear etiology at this time his history is very limited. Will keep saturations at appropriate levels. Patient reportedly has been on oxygen for several years. Unclear if this is secondary to obesity hypoventilation. Patient is typically cared for at the [place]. Would continue with normal treatment for sleep disordered breathing. Patient's mentation appears to be much improved following initiation of home CPAP. 3. Diabetes mellitus/obesity/hypertension/hyperlipidemia/recent stroke Complicates care, management, recovery and prognosis. Continue with every 6 blood sugar checks. Patient is on a significant amount of insulin, but states this is what it takes. If anything would suggest the patient would be hyperglycemic given his endogenous steroid release secondary to problem #1. Okay to continue with baseline medications for now. No new neurologic findings are noted. Inpatient E&M: 01738 Subs Hosp L2
[2019-12-01] MEDS: Multivitamins,Ther W-Minerals Tablet 1 TABLET PO (08:24)
[2019-12-01] MEDS: Pantoprazole Sodium 40 MG Tablet PO (08:24)
[2019-12-01] MEDS: Aspirin E.C. 81 MG Tablet PO (08:25)
[2019-12-01 08:30] LABS: Bedside Glucose 99 mg/dL (70-110)
[2019-12-01] MEDS: Carvedilol 12.5 MG Tablet PO (09:27)
[2019-12-01] MEDS: Furosemide 20 MG Tablet PO (09:27)
[2019-12-01] MEDS: Clopidogrel Bisulfate 75 MG Tablet PO (09:28)
[2019-12-01] MEDS: Escitalopram Oxalate 10 MG Tablet PO (09:28)
[2019-12-01] MEDS: Ranolazine 500 MG Tablet 1000 MG PO (09:28)
[2019-12-01] MEDS: Finasteride 5 MG Tablet PO (09:28)
[2019-12-01] MEDS: guaiFENesin 10 ML UDC (200MG/10ML) PO (09:28)
--- NOTE | 2019-12-01 10:35 | CASEMGMT ---
Addendum entered by Carlos Riggins 12/01/19 13:46: Call received back from Swapna @ [facility]. She states start of care will be tomorrow 12/01. Addendum entered by Carlos Riggins 12/01/19 12:33: Clarification: appt for Dec 05 @ 1130 @ [facility] is with Dr Blount. Addendum entered by Carlos Riggins 12/01/19 12:24: Call placed to Swapna @ [facility]. VM message left to inform her pt is being discharged today. Addendum entered by Carlos Riggins 12/01/19 12:20: Call received from Renetta @ [facility]. She states they were able to get an earlier appt for pt for Dec 05 @ 1130. She states pt's , Lucina, has been notified of same. Appt date/time changed on D/C f/u appt intervention, printed off, and placed w/pt's discharge instructions. Addendum entered by Carlos Riggins 12/01/19 10:57: Call placed to pt's , Lucina. She was made aware this KRISTI GERONIMO attempted to arrange for an earlier appt @ the [place] with Dr Blount than Dec 26, but was unsuccessful d/t they do not have anything earlier available. She was also made aware that per Ray, there are refills remaining on pt's Protonix and she can have this refilled. She voices appreciation. She is aware of the appt with the pharmacist on Dec 04 as well. Lucina requests that when pt is discharged, that the nurse contact her to review d/c instructions with her, stating, He doesn't pay any attention. They need to call me. [employer], Belkis, made aware. Original Note: KRISTI GERONIMO NOTE: Call received from KRISTI Bell, @ [facility]. He was made aware pt has had 2 hospitalizations in the past month and plan is for discharge home today with [facility]. He states pt has an appt with Dr Sibley on Dec 26 @ 0900 and [facility]. KRISTI GERONIMO inquired if an appt could be scheduled earlier for pt. He states the Dr Sibley would need to approve this 1st. KRISTI GERONIMO also spoke w/Leann @ [facility] at this time. Per Leann, there are no other openings available for pt to be seen earlier. Leann transferred this RN GRAZYNA back to KRISTI Bell. No answer. left with Ray, to inform him no earlier appts are available and asked if a message could be sent to Dr Sibley to see if he would approve pt to be seen earlier. [facility] to inform pt/ if an earlier appt can be scheduled. Ray had also stated pt does have refills remaining on the Protonix and suggested contact [facility] pharmacy to have this refilled or if she has enough medication for now, she can talk to the [place] pharmacist on November 25 and she can have it refilled at that time. Wendy ATKINSON RN CM
--- NOTE | 2019-12-01 11:03 | PCM.DC ---
- Discharge Diagnoses Current Active Problems: Current Active and Chronic Problems (Last Reviewed 11/29/19 @ 16:[address] 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) 2001 Atherosclerotic heart disease quile[place] coronary artery w/angina pectoris (Chronic) Cardiac catheterization 02/24/2017?normal LV size should not, EF 55%, [place] multivessel CAD, patent SVG to diagonal 1, OM 2, and RCA, MASON to LAD previously reported as atretic/nonfunctional (not reevaluated at that time), advised medical therapy Essential (primary) hypertension (Chronic) Chest pain (Acute) CONI (acute kidney injury) (Acute) EKATERINA (obstructive sleep apnea) (Chronic) Abnormal EKG (Acute) Chest wall contusion (Acute) Atypical chest pain (Acute) Left-sided weakness (Chronic) Chronic respiratory failure (Chronic) baseline 3L continuously DM type 2 (diabetes mellitus, type 2) (Chronic) Obstructive sleep apnea (Chronic) Seizure (Chronic) Aphasia (Chronic) CVA (cerebral vascular accident) (Chronic) Residual left-sided weakness You will use the following diet at home:: Calorie/Carbohydrate Controlled (specify 1200, 1400, etc), Cardiac Your food should be the consistency of: Regular Your liquids should be the consistency of: Regular/Thin Discharge Activity: Return to Normal Activity, No Restrictions, May Drive Call your doctor if you observe: Fever of 101 or Higher, Shortness of breath, Chest pain Allergies/Adverse Reactions: Allergies ezetimibe Allergy (Verified 11/29/19 08:54) Unknown Fish Containing Products Allergy (Verified 11/29/19 08:54) Unknown glyburide Allergy (Verified 11/29/19 08:54) Unknown isosorbide Allergy (Verified 11/29/19 08:54) PT UNSURE OF REACTION lisinopril Allergy (Verified 11/29/19 08:54) Unknown metformin Allergy (Verified 11/29/19 08:54) Nausea metoprolol Allergy (Verified 11/29/19 08:54) Unknown simvastatin Allergy (Verified 11/29/19 08:54) Unknown Medications to take at Discharge Aspirin E.C. [Ecotrin] 81 mg PO DAILY@0800 06/11/18 Atorvastatin Calcium [Lipitor] 80 mg PO QHS 06/11/18 Cholecalciferol (VIT D3) [Vitamin D3] 3,000 units PO DAILY 06/11/18 Clopidogrel Bisulfate [Clopidogrel] 75 mg PO DAILY 06/11/18 Escitalopram Oxalate [Lexapro] 10 mg PO DAILY 06/11/18 Finasteride [Proscar] 5 mg PO DAILY 06/11/18 Furosemide [Lasix] 20 mg PO DAILY 06/11/18 Insulin Regular, Human [Humulin R U-500 Kwikpen] 195 unit SQ BREAKFAST 06/11/18 Insulin Regular, Human [Humulin R U-500 Kwikpen] 195 unit SQ DINNER 06/11/18 Multivitamins,Ther W-Minerals [Multivitamin With Minerals (BKC)] 1 tablet PO DAILY 06/11/18 Pantoprazole Sodium 40 mg PO BIDCM 06/11/18 Ranolazine [Ranexa] 1,000 mg PO BID 06/11/18 Tamsulosin HCl [Flomax] 0.8 mg PO QHS 06/11/18 Acetaminophen [Tylenol Tablet] 650 mg PO Q6H PRN PRN tablet 06/21/18 Nitroglycerin (INPATIENT USE) [Nitrostat] 0.4 mg SUBLINGUAL Q5M PRN #30 tablet 07/22/18 Carvedilol [Coreg] 12.5 mg PO BID 12/03/18 Diclofenac Sodium [Diclo Gel] 4 gm TP BID PRN PRN 11/08/19 Guaifenesin 10 ml PO TID PRN PRN 11/08/19 Ketoconazole [Nizoral] 1 applicatio TP DAILY 11/08/19 Amoxicillin/Potassium Clav [Augmentin 875-125 Tablet] 1 ea PO BID #10 tab 12/01/19 The following prescriptions were given: Amoxicillin/Potassium Clav [Augmentin 875-125 Tablet] 1 ea PO BID #10 tab Transmission Status: Pending to [id number] Primary Care Physician: [facility] [Primary Care Provider] - Please follow up with your Primary Care Physician in: as scheduled Test Results: Test results from this visit will be discussed in further detail at your follow-up appointment, if applicable.
[2019-12-01 12:46] LABS: Bedside Glucose 122 mg/dL (70-110)
--- NOTE | 2019-12-01 13:05 | NURSING ---
discharge instructions given to pt's , Lucina. No questions at this time.
[2019-12-01 13:58] LABS: Pathologist Review Reviewed
--- NOTE | 2019-12-01 15:38 | PCM.DC.SUM ---
Discharge Date and Diagnosis - Problem List Patient Problems: Active and Suspected Problems (Last Reviewed 11/29/19 @ 16:[address] Varsha Short DO) UTI (urinary tract infection) (Acute) Lactic acid acidosis (Acute) Hypokalemia (Acute) Chest pain (Acute) CONI (acute kidney injury) (Acute) Abnormal EKG (Acute) Chest wall contusion (Acute) Atypical chest pain (Acute) Date of Admission: 11/29/19 Date of Discharge: 12/01/19 - Primary Discharge Diagnosis Acute Problems: Active Problems (Last Reviewed 11/29/19 @ 16:[address] Varsha Short DO) UTI (urinary tract infection) (Acute) Lactic acid acidosis (Acute) Hypokalemia (Acute) Chest pain (Acute) CONI (acute kidney injury) (Acute) Abnormal EKG (Acute) Chest wall contusion (Acute) Atypical chest pain (Acute) - Secondary Discharge Diagnosis Chronic Problems: Chronic Problems (Last Reviewed 11/29/19 @ 16:[address] Varsha Short DO) CAD (coronary artery disease) (Chronic) History of permanent cardiac pacemaker placement (Chronic 09/10/11) 2001 Atherosclerotic heart disease [place] coronary artery w/angina pectoris (Chronic) Cardiac catheterization 02/24/2017?normal LV size should not, EF 55%, [place] multivessel CAD, patent SVG to diagonal 1, OM 2, and RCA, MASON to LAD previously reported as atretic/nonfunctional (not reevaluated at that time), advised medical therapy Essential (primary) hypertension (Chronic) EKATERINA (obstructive sleep apnea) (Chronic) Left-sided weakness (Chronic) Hyperlipidemia (Chronic) Obesity (Chronic) Chronic respiratory failure (Chronic) baseline 3L continuously DM type 2 (diabetes mellitus, type 2) (Chronic) Obstructive sleep apnea (Chronic) Seizure (Chronic) Aphasia (Chronic) CVA (cerebral vascular accident) (Chronic) Residual left-sided weakness Hospital Course and Treatment Imaging Results: STUDY: X-RAY CHEST REASON FOR EXAM: Male, 69 years old. Sob, chills TECHNIQUE: Single AP portable view of the chest. COMPARISON: Comparison is made with prior study dated 11/18/2019. FINDINGS: EKG electrodes are seen. Stable increased markings in the left upper lobe and left perihilar region. This may represent scarring. There is no demonstrated pleural abnormality. Sternal cerclage wires and vascular clips are present from a prior sternotomy and coronary artery bypass graft procedure (CABG). A left-sided dual-chamber pacemaker is seen. Normal mediastinum and cata. Normal visualized pulmonary arteries. Normal visualized aortic arch and descending thoracic aorta. Normal visualized thoracic spine. There is degenerative osteoarthritis of the bilateral shoulders. There is no demonstrated abnormality of the visualized soft tissue structures of the upper abdomen. RAD/Chest 1 View (Portable) IMPRESSION: Stable examination. Electronically Signed: Mick García, at 10:18 EDT , Service support , STUDY: CT BRAIN WITHOUT CONTRAST REASON FOR EXAM: Male, 69 years old. MENTAL STATUS CHANGES, CONFUSION AT 1800 WITH GARBLED SPEECH, RISING TEMP AT 103, WEAKNESS, HERE FOR SEPSIS, UTI, PRIOR STROKE RADIATION DOSAGE (If Supplied By Facility): CTDIvol = ( 44.99 ) mGy, DLP = ( 863.60 ) mGycm TECHNIQUE: Transaxial CT imaging of the brain was performed without administration of intravenous contrast material. Individualized dose optimization techniques were used for this CT. COMPARISON: November 10, 2019 CT scan head FINDINGS: Normal soft tissue structures. Normal calvarium. There is mild cerebral atrophy with widening of the extra-axial spaces and ventricular dilatation. Normal white matter tracts of the cerebral hemispheres. Normal basal ganglia and thalami. Normal brainstem. Normal cerebellum. There is no intracranial hemorrhage. There are no findings of an acute ischemic infarction. There is mucoperiosteal inflammatory disease of the paranasal sinuses consistent with mild chronic sinusitis. 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 CT/Brain/Head without Contrast IMPRESSION: Mild atrophy. No visualized evidence of acute hemorrhage infarct or edema. Mild sinusitis. Electronically Signed: Kristyn Zhang MD at 23:26 EDT Tel , Service support , Pulm/CCM Operations: None Procedures: None Summary of Care Provided: Mr. Coello is a 69 yo WM with multiple co-morbidities who presented to the ED at [facility] on 11/29/2019 with urinary frequency. He stated that for about the 2 days prior to admission he had dysuria, frequency, fatigue, general malaise, myalgias and chills but denies documented fevers. He had been on doxycycline and prednisone about 1 week ago for bronchitis that has resolved at this time. He does have a h/o UTI and admitted that the way he felt on admission was how he has felt in the past when he has had UTI's. In the ED he was afebrile and his VS were stable. His labs did not show a white count but he does have a L shift. His lactate was elevated to 3.1. His K was 3.3. Troponin was WNL. His UA showed protein, glucose, occult blood, was + for nitrite and leuk esterase and had > 100 WBC noted. He was given IV ceftriaxone in the ED after urine and blood cx were obtained. With his lactate we will initiate the sepsis order set and admit him to the ICU. There he was continued on ABX. On the night of admission he spiked a fever of 103 and had sig confusion. He was refusing to wear our BIPAP here. A CT was done and was neg and his sx improved when he was more awake and his fever came down. His confimed that this too happens at home occasionally when he is not wearing his mask. His urine cx grew out proteus that was pansensitive and he was placed on Augmentin for 5 more days to completed a 7 day course of antibiotics. Retroperitoneal US was pending at d/c and we will f/u with this after d/c. He is to f/u with his PCP [facility] in 1 week/first available. No medication changes were made. He will be getting home health. Discharge Diagnoses Severe Sepsis 2/2 Proteus UTI Lactic Acidosis Hypokalemia Chronic Respiratory Failure 2/2 COPD HTN HPL CAD with h/o CABG H/O Stroke EKATERINA DM-2 BPH Depression Vitamin D deficiency Patient Problems: Active and Suspected Problems (Last Reviewed 11/29/19 @ 16:[address] Varsha Short, DO) UTI (urinary tract infection) (Acute) Lactic acid acidosis (Acute) Hypokalemia (Acute) Chest pain (Acute) CONI (acute kidney injury) (Acute) Abnormal EKG (Acute) Chest wall contusion (Acute) Atypical chest pain (Acute) Subjective: Pt states that his urinary sx have resolved but his chronic body pain persists. - Physical Exam Vitals/I&O's: Vital Signs Temp Pulse Resp BP Pulse Ox 97.7 F L 61 16 111/58 L 98 12/01/19 13:56 12/01/19 13:56 12/01/19 13:56 12/01/19 13:56 12/01/19 13:56 Oxygen Flow Rate (L/min) 3 Oxygen Delivery Method Nasal Cannula Weight: 114.3 kg Body Mass Index (BMI) 35.6 Finger Stick Blood Glucose 138 Intake and Output for Last 24 Hours 11/29/19 11/30/19 12/01/19 23:59 23:59 23:59 Intake Total 3832.8 / 3832.8 524 / 524 780 / 780 Output Total 325 / 325 1000 / 1000 240 / 240 Balance 3507.8 / 3507.8 -476 / -476 540 / 540 General: Alert, Oriented x3, Cooperative, No apparent distress, Well developed, Well nourished, - - WM who appears older than stated age is lying in bed with mask on and sleeping but awakens easily HEENT: Atraumatic, Normocephalic Oral: Moist Mucosa, No Gingival or Mucosal Lesions/ Ulcerations, - Neck: Supple, Trachea Midline Lungs: No rhonchi, No wheeze, No rales, Diminished - diffusely Cardiovascular: Regular rate, Regular Rhythm, Normal S1, Normal S2, No murmurs, No Ectopic Activity, No rub noted, No Gallop, - - paced Abdomen: Bowel Sounds Present, Soft, Non Tender, Non-Distended, Obese Extremities: No clubbing, No cyanosis, No edema, Capillary Refill Less than 3 Seconds, Peripheral Pulses Normal Skin: No rashes, No breakdown Neurological: Cranial nerves II-XII grossly intact, - - chronic L sided weakness and dysarthria Psych/Mental Status: Normal Affect, Appropriate, Alert and oriented to time, place, person, mood and affect Microbiology Past 72 Hours 11/29/19 11:40 Urine, Clean Catch Urine Culture - Final Proteus mirabilis 11/29/19 09:30 Blood Culture (Wb) - Right Hand Blood Culture - Preliminary No growth in 48 hours. 11/29/19 09:25 Blood Culture (Wb) - Anticubital Right Blood Culture - Preliminary No growth in 48 hours. Laboratory Results 11/30/19 18:07: POC Glucose 118 H 11/30/19 20:24: POC Glucose 92 12/01/19 02:52: POC Glucose 137 H 12/01/19 03:35: WBC 4.2 L, RBC 3.41 L, Hgb 11.4 L, Hct 34.6 L, MCV 101.5 H, MCH 33.4 H, MCHC 32.9, RDW Std Deviation 49.7 H, RDW Coeff of Cinda 13.2, Plt Count 85 L, MPV 10.5, Immature Gran % (Auto) 0.200, Neut % (Auto) 75.2 H, Lymph % (Auto) 14.0 L, [place] % (Auto) 9.2, Eos % (Auto) 1.2, Baso % (Auto) 0.2, Absolute Neuts (auto) 3.1, Absolute Lymphs (auto) 0.58 L, Nucleated RBC % 0, Differential Comment SCANNED, Diff Path Review Reviewed, Platelet Estimate MOD 12/01/19 03:35: Sodium 140, Potassium 3.5, Chloride 104, Carbon Dioxide 31.0, Anion Gap 5, BUN 19 H, Creatinine 0.93, Estim Creat Clear Calc 77.40, Est GFR (MDRD) Af Amer 104, Est GFR (MDRD) Non-Af 86, BUN/Creatinine Ratio 20.5 H, Glucose 111 H, Calcium 7.3 L, Magnesium 1.7 12/01/19 08:20: POC Glucose 99 12/01/19 12:40: POC Glucose 122 H Discharge Activity: Return to Normal Activity, No Restrictions, May Drive Call your doctor if you observe: Fever of 101 or Higher, Shortness of breath, Chest pain Home Medications: Medications to take at Discharge Aspirin E.C. [Ecotrin] 81 mg PO DAILY@0800 06/11/18 Atorvastatin Calcium [Lipitor] 80 mg PO QHS 06/11/18 Cholecalciferol (VIT D3) [Vitamin D3] 3,000 units PO DAILY 06/11/18 Clopidogrel Bisulfate [Clopidogrel] 75 mg PO DAILY 06/11/18 Escitalopram Oxalate [Lexapro] 10 mg PO DAILY 06/11/18 Finasteride [Proscar] 5 mg PO DAILY 06/11/18 Furosemide [Lasix] 20 mg PO DAILY 06/11/18 Insulin Regular, Human [Humulin R U-500 Kwikpen] 195 unit SQ BREAKFAST 06/11/18 Insulin Regular, Human [Humulin R U-500 Kwikpen] 195 unit SQ DINNER 06/11/18 Multivitamins,Ther W-Minerals [Multivitamin With Minerals (BKC)] 1 tablet PO DAILY 06/11/18 Pantoprazole Sodium 40 mg PO BIDCM 06/11/18 Ranolazine [Ranexa] 1,000 mg PO BID 06/11/18 Tamsulosin HCl [Flomax] 0.8 mg PO QHS 06/11/18 Acetaminophen [Tylenol Tablet] 650 mg PO Q6H PRN PRN tablet 06/21/18 Nitroglycerin (INPATIENT USE) [Nitrostat] 0.4 mg SUBLINGUAL Q5M PRN #30 tablet 07/22/18 Carvedilol [Coreg] 12.5 mg PO BID 12/03/18 Diclofenac Sodium [Diclo Gel] 4 gm TP BID PRN PRN 11/08/19 Guaifenesin 10 ml PO TID PRN PRN 11/08/19 Ketoconazole [Nizoral] 1 applicatio TP DAILY 11/08/19 Amoxicillin/Potassium Clav [Augmentin 875-125 Tablet] 1 ea PO BID #10 tab 12/01/19 Following Prescriptions Were Given to Patient: Amoxicillin/Potassium Clav [Augmentin 875-125 Tablet] 1 ea PO BID #10 tab Transmission Status: Received by [id number] Primary Care Physician: [facility] [Primary Care Provider] - Please follow up with your Primary Care Physician in: as scheduled Medical Necessity - Tobacco Use Smoking Status: Former smoker Meaningful Use Info Meaningful Use Diagnoses (Choose all that apply): None applicable Inpatient E&M: [id number] [facility]
--- NOTE | 2019-12-02 18:50 | CASEMGMT ---
KRISTI GERONIMO Discharge Follow-up Phone Call: SHAHZAD: Dada Strata: 3 Call Date: 12/02/2019 Discharge Date: 12/01/2019 Time of Call: 1844 Admitting Diagnosis: UTI Discharge follow-up call placed to pt. Pt's states he has been having episodes of feeling like being on fire since discharge. States he has not had a fever. States the home health RN visited today and his Temp was 98.2. Pt states he did obtain the antibiotic and is taking it as directed. States he [facility] Also states that if he gets worse he is going to come back to the ED. Asked pt if he calls the [facility]call [facility] nurse and he states he doesn't but then stated they just tell me to go to the ED. Pt expressed frustration with hospital bills and the [facility] and states he has been in contact with [facility] representatives to try and resolve. Pt denied further concerns or questions. Yogi Mcnair RN CM
== END 2019-12-01 14:10 | disposition home health service (06) | DRG 872 ==
LOC: ED 10:49 → ICU 12:39
PROVIDERS: Admitting Provider Internal Medicine; Emergency Provider Emergency Medicine; Visit Provider Internal Medicine
DX: A41.59 Other Gram-negative sepsis (principal); N39.0 Urinary tract infection, site not specified; J96.11 Chronic respiratory failure with hypoxia; E87.2 Acidosis; I69.354 Hemiplegia and hemiparesis following cerebral infarction affecting left non-dominant side; R65.20 Severe sepsis without septic shock; B96.4 Proteus (mirabilis) (morganii) as the cause of diseases classified elsewhere; J44.9 Chronic obstructive pulmonary disease, unspecified; I10 Essential (primary) hypertension; G47.33 Obstructive sleep apnea (adult) (pediatric); I69.320 Aphasia following cerebral infarction; I69.322 Dysarthria following cerebral infarction; E87.6 Hypokalemia; I25.10 Atherosclerotic heart disease of native coronary artery without angina pectoris; E11.9 Type 2 diabetes mellitus without complications; E78.5 Hyperlipidemia, unspecified; E66.9 Obesity, unspecified; F32.9 Major depressive disorder, single episode, unspecified; Z68.35 Body mass index [BMI] 35.0-35.9, adult; N40.0 Benign prostatic hyperplasia without lower urinary tract symptoms; E55.9 Vitamin D deficiency, unspecified; Z87.891 Personal history of nicotine dependence; Z95.1 Presence of aortocoronary bypass graft; Z99.81 Dependence on supplemental oxygen; Z95.0 Presence of cardiac pacemaker
CPT/HCPCS: 70450; 71045; 76770; 80048; 80053; 81001; 82962; 83605; 83735; 84484; 85025; 85610; 87040; 87077; 87086; 87088; 87186; 87635; 87641; 93005; 97116; 97162; 97166; 97530; 97802; 99251; 99281; J7030; A4216; G0463; J2405; U0003

== ENCOUNTER 2019-12-03 19:51 | Emergency (ER) | payer OTHER, SELFPAY ==
[2019-11-29 14:21] VITALS: BMI 35.6
[2019-12-03 19:52] VITALS: BP 186/77; PULSE 60; PULSE 62; RESP 17; RESP 22; TEMP 36.4; O2SAT 100; BMI 35.6
[2019-12-03 19:55] VITALS: BP 186/77; PULSE 60; RESP 22; TEMP 36.4; O2SAT 100
--- NOTE | 2019-12-03 20:12 | EKG12_ITS ---
Test Reason : SOB Blood Pressure : / mmHG Vent. Rate : 060 BPM Atrial Rate : 060 BPM P-R Int : 250 ms QRS Dur : 120 ms QT Int : 464 ms P-R-T Axes : 000 -28 058 degrees QTc Int : 464 ms Atrial-paced rhythm with prolonged AV conduction Non-specific intra-ventricular conduction delay Abnormal ECG Confirmed by YUNI GUALLPA, JOANNA ([id number]), photographic editor NADINE FERRER ([id number]) on 12/06/2019 8:19:40 AM Referred By: OZZIE Confirmed By:JOANNA MORRISSEY MD
[2019-12-03] MEDS: Ondansetron 4 MG/2 ML Vial IV (20:43)
[2019-12-03] MEDS: Morphine 4 MG/ML Syringe IV (20:43)
[2019-12-03] MEDS: 0.9% Normal Saline 1,000 ML 150 ML IV (20:44)
[2019-12-03 20:48] LABS: Absolute Lymphocyte Count 0.92 X10^3/uL (0.83-4.51); Absolute Neutrophil Count 2.5 X10^3/uL (2.0-7.7); Eosinophil# 0.08 X10^3/uL; Eosinophils% 2.1 % (0-5); Hematocrit 35.2 % (40-54); Hemoglobin 11.5 g/dL (13.0-16.5); Lymphocyte # 0.92 X10^3/ul (4.0); Lymphocyte % 24.3 % (19-41); Mean Corp Hgb Conc 32.7 g/dL (32-36); Mean Corpuscular Hgb 32.9 pg (27.0-32.0); Mean Corpuscular Volume 100.6 fL (80-94); Mean Platelet Vol. 10.4 fl (6.2-12.0); Monocyte# 0.29 X10^3/uL; Monocyte% 7.7 % (0-10); NRBC Flagged by Analyzer 0 % (0-5); Neutrophil # 2.49 X10^3/uL (2.7-7.7); Neutrophil % 65.6 % (47-70); Platelet Count 130 K/mm3 (150-450); RBC Distribution Width CV 12.9 % (11.6-14.6); RBC Distribution Width SD 47.4 fl (35.1-43.9); White Blood Count 3.8 K/mm3 (4.4-11.0)
[2019-12-03 20:56] LABS: Bacteria 0 SEEN /hpf (None Seen); Red Blood Cells-Urine 0 SEEN /hpf (0-5)
[2019-12-03 20:58] LABS: Color, Urine Yellow (Yellow); Glucose, Dipstick 250 mg/dl (Normal); Ketone-Dipstick 15 mg/dl (Negative); Leukocyte Esterase-Dipstick 100 /ul (Negative); Nitrite-Dipstick Negative (Negative); Occult Blood-Urine 10 /ul (Negative); Protein-Dipstick 30 mg/dl (Negative); Specific Gravity, Urine 1.015 (1.002-1.030); Urine Bilirubin Dipstick Negative (Negative); Urine Clarity Sl. Cloudy (Clear); Urine Urobilinogen 4 mg/dl (Normal)
--- NOTE | 2019-12-03 21:00 | RAD_ITS ---
STUDY: X-RAY CHEST REASON FOR EXAM: Male, 69 years old. BODY ACHES ALL OVER, HX OF COPD AND EMPHYSEMA TECHNIQUE: Single AP portable view of the chest. COMPARISON: 11/29/2019 FINDINGS: EKG leads overlie the chest, stable appearance of a left subclavian pacemaker There are interstitial fibrotic changes of the lungs. There is no demonstrated pleural abnormality. Sternal cerclage wires and vascular clips are present from a prior sternotomy and coronary artery bypass graft procedure (CABG). Normal mediastinum and cata. Normal visualized pulmonary arteries. Normal visualized aortic arch and descending thoracic aorta. There are diffuse degenerative changes of the visualized thoracic spine. Normal visualized ribs, clavicles, and shoulders. There is no demonstrated abnormality of the visualized soft tissue structures of the upper abdomen. RAD/Chest 1 View (Portable) IMPRESSION: Degenerative changes, as described above. No demonstrated acute cardiopulmonary process. Electronically Signed: Ernie Gates MD at 21:14 EDT , Service support ,
[2019-12-03 21:08] LABS: D-Dimer Quantitative (DVT/PE) 0.75 FEU/ug/m (0.27-0.49)
[2019-12-03 21:13] LABS: Anion Gap 4 (5-15); BUN 16 mg/dL (7-18); Calcium,Total 8.2 mg/dL (8.5-10.1); Chloride 106 mmol/L (98-107); Creatinine, Serum 0.84 mg/dL (0.70-1.30); EST Glomerular Filtration Rate 96 mL/min (>60); Est Glom Filt Rate - Afr Amer 116 mL/min (>60); Glucose 134 mg/dL (74-106); Potassium 3.6 mmol/L (3.5-5.1); Sodium Level 143 mmol/L (136-145)
--- NOTE | 2019-12-03 21:25 | CT_ITS ---
STUDY: CTA CHEST REASON FOR EXAM: Male, 69 years old. CHEST Pain, elevated DDIMER,COUGH,SOB,DIZZINESS -- HX:CAD,DE,CHF,COPD,EMPHYSEMA,DIABETES,HTN,HLD -- SURGERY:CABG X 4,PACEMAKER,CHOLECYSTECTOMY RADIATION DOSAGE (If Supplied By Facility): CTDIvol = ( 13.85 ) mGy, DLP = ( 518.38 ) mGycm TECHNIQUE: The examination was performed with the intravenous administration of IV 100mL Isovue-370. Post-processing of the angiographic images was performed, with multiplanar reformation and 3D reconstruction. Individualized dose optimization techniques were used for this CT. COMPARISON: None. FINDINGS: There is limited enhancement of the main pulmonary artery and right and left pulmonary arteries. There is limited enhancement of the bilateral peripheral pulmonary arteries. There is no demonstrated pulmonary embolism. Normal thoracic aorta and visualized great vessels. There is no demonstrated aortic dissection. Sternal cerclage wires and vascular clips are present from a prior sternotomy and coronary artery bypass graft procedure (CABG). There are scattered subcentimeter axillary and mediastinal lymph nodes. Normal hilar regions. There is peribronchial thickening. The lungs are well expanded. Chronic interstitial changes, no superimposed infiltrate or effusion Normal pleura. Normal chest wall structures. There are degenerative changes of thoracic spine. Normal visualized upper abdomen. CT/CTA Chest W/WO Contrast IMPRESSION: No demonstrated PE, or thoracic aortic aneurysm or dissection. However, the contrast bolus within the pulmonary arteries is not optimal, and a subtle filling defect could be present overlooked particularly in the distal vessels Remote CABG Scattered subcentimeter in short axis dimension axillary mediastinal lymph nodes Chronic interstitial changes in both lung flores bilaterally superimposed acute pulmonary process Degenerative bony changes Electronically Signed: Ernie Gates MD at 22:43 EDT , Service support ,
[2019-12-03 21:26] LABS: Lactic Acid 2.3 mmol/L (0.4-1.9)
[2019-12-03 21:34] VITALS: BP 167/79; PULSE 67; RESP 18; TEMP 36.9; O2SAT 97
[2019-12-03 21:36] LABS: Mucous, Urine 4+ /hpf (<or=2+)
[2019-12-03 21:38] LABS: Hyaline Cast 0-5 SEEN /lpf (0-5); Squamous Epithelial Cells - UA 0-5 SEEN /hpf (0-5)
[2019-12-03 21:39] LABS: Calcium Oxalate Crystals Ur 1+ /hpf (<or=2+); White Blood Cells 10-25 SEEN /hpf (0-5)
--- NOTE | 2019-12-03 22:54 | ED.DCSUM_ITS ---
- ER Visit Summary Date of Service: 12/03/19 Chief Complaint: [Body aches] History of Present Illness: The patient is a 69 M [presents to the emergency department with multiple complaints today. Patient states that he has pain all over. He developed some sharp stabbing pains in his left chest and into his left arm. He denies feeling any more short of breath than usual. Patient states that he has COPD and normally wears home O2. Patient had recent admission to this hospital and was admitted for sepsis related to urinary tract infection. He denies any dysuria. He denies any fevers. Patient did have a negative COVID-19 test on the 13 of this month. He has had a mild cough but nonproductive. He denies sore throat. Patient did describe some numbness and tingling in his hands. Denies recent travel or surgery.] Physical Examination: [HEENT-PERRLA, EOMI. Cranial nerves II through XII grossly intact. TMs clear. Mucous membranes moist. No adenopathy. Cardiovascular-regular rate and rhythm without murmur or ectopy Lungs-clear to auscultation, chest wall stable without crepitus or subcu emphysema Abdomen-normoactive bowel sounds, soft, nontender, no rebound or rigidity, no peritoneal signs. Extremities-intact ?4, normal range of motion, normal pulses, atraumatic] Test Results: [EKG obtained arrival showed a atrially paced rhythm with prolonged AV conduction and nonspecific intraventricular conduction delay. CBC with differential showed a Julien 3.8, hemoglobin 11.5, hematocrit 35, platelets 130. Chemistries unremarkable. Urinalysis showed 100 excite esterase and 10- 25 WBCs. Negative for nitrites. Negative for bacteria. Troponin was less than 0.015. Lactate was 2.3. D-dimer was elevated 0.75. Covid 19 test was negative. Chest x-ray showed degenerative changes otherwise nothing acute. CTA of the chest showed no evidence of dissection or obvious PE although the IV contrast through the vessels was not ideal and could not definitively rule out a distal clot.] Emergency Department Course and Treatment: [IV line established on arrival. Patient was medicated with morphine and Zofran. Patient had good pain relief with that.] Treatment Plan: [At this point patient has a follow-up appointment with his primary care physician in 3 days and he is advised to keep that. I do not feel his chest pain is cardiac and is very atypical. I suspect patient likely has some component of anxiety as well.] Disposition: [Discharged home in stable condition. Patient advised to return if worsening pain, increasing shortness of breath, or condition should worsen anyway.] Impression: [Atypical chest pain Myalgias Anxiety] This note was generated with [employer] dictation software. It may contain incorrect words, spelling, and punctuation that were not noted in review of the chart prior to signing ED Disposition - Plan for ED Patient: [facility] [[facility]] -
--- NOTE | 2019-12-03 22:59 | ED.DEP ---
ED Disposition - Plan for ED Patient: Instructions: ED Chest Pain Atypical Unkn Cause Prescriptions: Hydrocodone Bitart/Apap 5-325 [[place] 5MG-325MG] 1 tab PO Q4H PRN PRN 2 Days #10 tab PRN Reason: Pain Prescription Printed Referrals: [facility] [Primary Care Provider] - 3-5 Days
[2019-12-03 23:17] VITALS: BP 174/86; PULSE 68; RESP 16; O2SAT 100
[2019-12-04 00:43] LABS: Reflex Lactate? Y
== END 2019-12-03 23:18 | disposition home or self-care (01) ==
LOC: ED 20:16
PROVIDERS: Emergency Provider Emergency Medicine
DX: R07.89 Other chest pain (principal); M79.10 Myalgia, unspecified site; F41.9 Anxiety disorder, unspecified; I25.10 Atherosclerotic heart disease of native coronary artery without angina pectoris
CPT/HCPCS: 71045; 71275; 80048; 81001; 83605; 84484; 85025; 85379; 87086; 87635; 93005; 96374; 96375; 99281; 99285; Q9967; A4216; J2405; U0003

== ENCOUNTER 2019-12-13 10:57 | Emergency (ER) | payer OTHER, SELFPAY ==
[2019-12-13] VITALS (8 sets, daily range): BP systolic 142–183; BP diastolic 82–95; PULSE 60–67; RESP 18–20; TEMP 36.6–37; O2SAT 96–97; BMI 37.3
--- NOTE | 2019-12-13 11:45 | EKG12_ITS ---
Test Reason : COUGH Blood Pressure : / mmHG Vent. Rate : 060 BPM Atrial Rate : 057 BPM P-R Int : 326 ms QRS Dur : 120 ms QT Int : 478 ms P-R-T Axes : 079 -23 077 degrees QTc Int : 478 ms Atrial-paced rhythm with prolonged AV conduction Non-specific intra-ventricular conduction delay Nonspecific ST and T wave abnormality Abnormal ECG Confirmed by BRYN GUALLPA, JULIO C ([id number]), editor & co founder NADINE FERRER ([id number]) on 12/16/2019 9:52:52 A M Referred By: CHRIS Confirmed By:BELEN CLEMENTE MD
[2019-12-13 11:59] LABS: Absolute Lymphocyte Count 1.03 X10^3/uL (0.83-4.51); Absolute Neutrophil Count 2.7 X10^3/uL (2.0-7.7); Basophil# 0.01 X10^3/uL; Basophil% 0.2 % (0-1); Eosinophil# 0.08 X10^3/uL; Hemoglobin 12.7 g/dL (13.0-16.5); Lymphocyte # 1.03 X10^3/ul (4.0); Lymphocyte % 25.2 % (19-41); Mean Corp Hgb Conc 33.4 g/dL (32-36); Mean Corpuscular Hgb 33.4 pg (27.0-32.0); Mean Platelet Vol. 10.2 fl (6.2-12.0); Monocyte# 0.25 X10^3/uL; Monocyte% 6.1 % (0-10); NRBC Flagged by Analyzer 0 % (0-5); Neutrophil # 2.71 X10^3/uL (2.7-7.7); Neutrophil % 66.3 % (47-70); Platelet Count 180 K/mm3 (150-450); RBC Distribution Width CV 13.5 % (11.6-14.6); RBC Distribution Width SD 48.6 fl (35.1-43.9); White Blood Count 4.1 K/mm3 (4.4-11.0)
[2019-12-13 12:09] LABS: International Normalized Ratio 1.1; Prothrombin Time (Protime)PT. 13.9 SECONDS (11.7-14.9)
[2019-12-13 12:10] LABS: Partial Thromboplast Time 36.3 Seconds (24.1-36.2)
[2019-12-13 12:16] LABS: ALB/GLOB Ratio 0.9 RATIO (0.9-2.4); AST(SGOT) 20 U/L (15-37); Alanine Aminotransfer ALT/SGPT 38 U/L (16-61); Albumin, Serum 3.3 g/dL (3.2-5.0); Alkaline Phosphatase 90 U/L (45-117); Anion Gap 5 (5-15); BUN 16 mg/dL (7-18); BUN/Creat Ratio 17.1 RATIO (10-20); Calcium,Total 8.3 mg/dL (8.5-10.1); Chloride 104 mmol/L (98-107); Creatinine, Serum 0.93 mg/dL (0.70-1.30); EST Glomerular Filtration Rate 85 mL/min (>60); Est Glom Filt Rate - Afr Amer 103 mL/min (>60); Globulin 3.7 g/dL (2.2-4.2); Glucose 213 mg/dL (74-106); Potassium 4.3 mmol/L (3.5-5.1); Sodium Level 141 mmol/L (136-145)
[2019-12-13 12:40] LABS: Bacteria 0 SEEN /hpf (None Seen); Mucous, Urine 0 SEEN /hpf (<or=2+); Red Blood Cells-Urine 0 SEEN /hpf (0-5); Squamous Epithelial Cells - UA 0 SEEN /hpf (0-5); White Blood Cells 0 SEEN /hpf (0-5)
[2019-12-13 12:48] LABS: Color, Urine Yellow (Yellow); Glucose, Dipstick 250 mg/dl (Normal); Ketone-Dipstick Negative (Negative); Leukocyte Esterase-Dipstick Negative /ul (Negative); Nitrite-Dipstick Negative (Negative); Occult Blood-Urine Negative /ul (Negative); Protein-Dipstick 15 mg/dl (Negative); Specific Gravity, Urine 1.015 (1.002-1.030); Urine Bilirubin Dipstick Negative (Negative); Urine Clarity Clear (Clear); Urine Urobilinogen Normal (Normal)
[2019-12-13 13:20] LABS: Lactic Acid 2.3 mmol/L (0.4-1.9)
--- NOTE | 2019-12-13 13:20 | RAD_ITS ---
STUDY: X-RAY CHEST REASON FOR EXAM: Male, 69 years old. states pt has bronchitis and feels it is getting worse TECHNIQUE: Single AP portable view of the chest. COMPARISON: Comparison is made with prior study dated 12/03/2019. FINDINGS: EKG electrodes are seen. Stable increased markings in the left hemithorax suggestive of scarring. There is no demonstrated pleural abnormality. Sternal cerclage wires and vascular clips are present from a prior sternotomy and coronary artery bypass graft procedure (CABG). A left-sided dual-chamber pacemaker is seen. Normal mediastinum and cata. Normal visualized pulmonary arteries. Normal visualized aortic arch and descending thoracic aorta. Normal visualized thoracic spine. Normal visualized ribs, clavicles, and shoulders. There is no demonstrated abnormality of the visualized soft tissue structures of the upper abdomen. RAD/Chest 1 View (Portable) IMPRESSION: Stable increased markings in the left hemithorax suggestive of scarring. Electronically Signed: Mick García, at 13:56 EDT , Service support ,
--- NOTE | 2019-12-13 13:21 | ED.RN ---
lab called lactic acid 2.[address] eldridge
--- NOTE | 2019-12-13 14:21 | ED.VIS.GEN ---
History of Present Illness Chief Complaint: Cough Informant: Patient, Significant Other Narrative: brings the child in for the evaluation of sleeping more today and stopping breathing while sleeping. He has a history of sleep apnea and sleeps with a CPAP machine on. He had this on this morning when he was laying next to her and she heard him stop breathing 3 times. He had stayed up until 1 in the morning being unable to sleep and was on the computer before he eventually fell asleep. She states that yesterday he spent more time in bed than normal and so she wanted to make sure things were okay. He has had a recent admission for urinary tract infection and was recently diagnosed with bronchitis. No fevers. He notes some chest pain that has been an ongoing chronic issue for months. Has had a recent CTA that was negative. At times the patient apparently is able to speak but most of the time when he has these episodes he speaks with grunts. 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 Comment: Cardiac catheterization 02/24/2017?normal LV size should not, EF 55%, [place] multivessel CAD, patent SVG to diagonal 1, OM 2, and RCA, MASON to LAD previously reported as atretic/nonfunctional (not reevaluated at that time), advised medical therapy (8) CVA (cerebral vascular accident) Status: Chronic Comment: Residual left-sided weakness (9) DM type 2 (diabetes mellitus, type 2) Status: Chronic (10) Essential (primary) hypertension Status: Chronic (11) Hyperlipidemia Status: Chronic (12) EKATERINA (obstructive sleep apnea) Status: Chronic (13) Seizure Status: Chronic (14) H/O coronary artery bypass surgery Status: Resolved Comment: CABG x 4 MASON-LAD, SVG-D1, SVG-OM2, SVG-RCA (15) History of coronary artery stent placement Status: Resolved Comment: Previously placed stent has an instent 85 % restenosis followed by subtotal occlusion per [facility] 02/2017 Past Medical History - Allergies and Home Meds Allergies/Adverse Reactions: Allergies ezetimibe Allergy (Verified 10/27/20 11:03) Unknown Fish Containing Products Allergy (Verified 12/13/19 11:03) Unknown glyburide Allergy (Verified 12/13/19 11:03) Unknown isosorbide Allergy (Verified 12/13/19 11:03) PT UNSURE OF REACTION lisinopril Allergy (Verified 12/13/19 11:03) Unknown metformin Allergy (Verified 12/13/19 11:03) Nausea metoprolol Allergy (Verified 12/13/19 11:03) Unknown simvastatin Allergy (Verified 12/13/19 11:03) Unknown Primary Care Physician: [facility],[place] [Primary Care Provider] - Keep Mary appointment Prior records reviewed: Yes Surgical History: angioplasty, coronary bypass surgery, pacemaker implantation, - - cabg,cholecystectemy, hernia, left knee, 4 stents Lives: Spouse/ Significant Other Smoking Status: Current every day smoker Drugs: None - Family History Maternal Family History: Reports: Heart Disease Paternal Family History: Reports: - - Patient does not know his paternal family history. Review of Systems General: Reports: - - body pain. Denies: Chills, Fever, Sweats Eyes: Denies: Visual changes - bilaterally, Diplopia ENT: Denies: Rhinorrhea, Sore throat Cardiovascular: Reports: Chest pain. Denies: Palpitations Respiratory: Reports: Cough. Denies: Dyspnea, Sputum, Dyspnea on exertion Gastrointestinal: Denies: Abdominal pain, Nausea, Vomiting, Diarrhea, Melena, Hematochezia Genitourinary: Denies: Dysuria, Hematuria, Frequency Musculoskeletal: Reports: Myalgias, Arthralgias. Denies: Back pain, Extremity Pain Skin: Denies: Rash, Wounds Neurological: Denies: Headache, Weakness, Numbness Physical Exam Vital Signs/Narrative: Vital Signs Temp Pulse Resp BP Pulse Ox 12/13/19 13:14 98 F 64 20 H 176/87 H 96 12/13/19 12:45 98 F 60 18 178/82 H 96 12/13/19 11:45 98 F 60 18 183/83 H 96 12/13/19 11:02 98.6 F 60 18 178/86 H 97 12/13/19 10:58 98.3 F 65 18 178/86 H 96 Inital Vital Signs reviewed: Yes General: Well nourished, Well developed, Obese, No Acute Distress Head: Normocephalic, Atraumatic Eyes: Perrl, EOMI ENT: Moist mucous membranes, No rhinorrhea Neck: Supple, Nontender Cardiovascular: Regular rate, Regular rhythm, No murmurs Respiratory: No distress, CTA bilaterally, Chest nontender Abdomen: Soft, Nontender, Nondistended, Normal bowel sounds Back: Nontender, Normal Inspection Extremities: Nontender, No edema Skin: Normal color, No rash Neurological: Alert, Cranial nerves II-XII grossly intact, Normal Strength, Normal Sensation Diagnostic/Tx/Re-eval - EKG Initial EKG Interpretation: - - Atrial paced rhythm at a rate of 60. ED Disposition - Plan for ED Patient: Disposition: Home or Assisted Living Diagnosis: Weakness, Left-sided weakness, Chest pain Instructions: ED Weakness [facility] Referrals: [facility],[place] [Primary Care Provider] - Keep Mary appointment
[2019-12-13] MEDS: HYDROcodone Bitartrate/Apap 5/325 Tablet PO (14:38)
[2019-12-13 15:54] LABS: Reflex Lactate? Y
== END 2019-12-13 14:52 | disposition home or self-care (01) ==
PROVIDERS: Emergency Provider Emergency Medicine
DX: R53.1 Weakness (principal); R07.9 Chest pain, unspecified; I25.10 Atherosclerotic heart disease of native coronary artery without angina pectoris; E66.9 Obesity, unspecified; F17.200 Nicotine dependence, unspecified, uncomplicated; Z95.5 Presence of coronary angioplasty implant and graft; Z95.1 Presence of aortocoronary bypass graft; Z95.0 Presence of cardiac pacemaker; Z86.73 Personal history of transient ischemic attack (TIA), and cerebral infarction without residual deficits
CPT/HCPCS: 71045; 80053; 81001; 83605; 84484; 85025; 85610; 85730; 87040; 87086; 93005; 99285; J7030; A4216

== ENCOUNTER 2020-04-08 16:52 | Inpatient (IN) | payer OTHER, MEDICARE, SELFPAY ==
[2019-12-13 10:58] VITALS: BMI 37.3
[2020-04-08] VITALS (7 sets, daily range): BP systolic 148–182; BP diastolic 70–92; PULSE 67–89; RESP 18–25; TEMP 36.8–37.3; O2SAT 90–99; BMI 35.0; BMI 33.7; BMI 33.8
--- NOTE | 2020-04-08 18:02 | CT_ITS ---
EXAM: CT HEAD WITHOUT INTRAVENOUS CONTRAST CLINICAL INDICATION: BM AT 9AM, PASSED OUT AND NOW HAS NAUSEA, NOT FEELING WELL, HX KS, STENTS, HTN TECHNIQUE: Multiple axial images were obtained of the head without intravenous contrast. This CT exam was performed using one or more of the following dose reduction techniques: automated exposure control, adjustment of the mA and/or kV according to patient size, and/or use of iterative reconstruction technique. This report was created using [employer] report generation technology. COMPARISON: 11/29/2019 FINDINGS: BRAIN AND EXTRA-AXIAL SPACES: Central parenchymal volume loss. White matter changes that are nonspecific but most commonly associated with chronic small vessel ischemic disease. No intra- or extra-axial hemorrhage. No intracranial mass or mass effect. Posterior fossa structures are unremarkable. Ventricles are appropriate for age. No hydrocephalus. Basal cisterns are patent. BONES/JOINTS: Unremarkable. No discrete lytic or blastic abnormalities. SINUSES: Unremarkable as visualized. Clear. MASTOID AIR CELLS: Unremarkable. Clear. ORBITS: Visualized globes, extraocular muscles, optic nerves and retrobulbar fat appear unremarkable. CT/Brain/Head without Contrast IMPRESSION: No acute findings in the head/brain. Electronically Signed: Karlos Cabrera MD (Brooks) at 19:45 EST , Service support ,
--- NOTE | 2020-04-08 18:03 | EKG12_ITS ---
Test Reason : Blood Pressure : / mmHG Vent. Rate : 066 BPM Atrial Rate : 066 BPM P-R Int : 198 ms QRS Dur : 120 ms QT Int : 498 ms P-R-T Axes : 055 -04 179 degrees QTc Int : 522 ms Normal sinus rhythm T wave abnormality, consider anterolateral ischemia Abnormal ECG Confirmed by PADILLA GUALLPA, CALI ([id number]), editor map NADINE FERRER ([id number]) on 04/10/2020 11:33:14 AM Referred By: Confirmed By:CALI CAUSEY MD
[2020-04-08 18:31] LABS: Absolute Lymphocyte Count 0.93 X10^3/uL (0.83-4.51); Absolute Neutrophil Count 3.5 X10^3/uL (2.0-7.7); Basophil# 0.02 X10^3/uL; Basophil% 0.4 % (0-1); Eosinophil# 0.12 X10^3/uL; Eosinophils% 2.4 % (0-5); Hematocrit 33.4 % (40-54); Hemoglobin 9.8 g/dL (13.0-16.5); Lymphocyte # 0.93 X10^3/ul (4.0); Mean Corp Hgb Conc 29.3 g/dL (32-36); Mean Corpuscular Hgb 27.1 pg (27.0-32.0); Mean Corpuscular Volume 92.5 fL (80-94); Mean Platelet Vol. 11.2 fl (6.2-12.0); Monocyte# 0.36 X10^3/uL; Monocyte% 7.3 % (0-10); NRBC Flagged by Analyzer 0 % (0-5); Neutrophil # 3.45 X10^3/uL (2.7-7.7); Neutrophil % 70.5 % (47-70); Platelet Count 220 K/mm3 (150-450); RBC Distribution Width CV 15.4 % (11.6-14.6); RBC Distribution Width SD 52.5 fl (35.1-43.9); Red Blood Count 3.61 M/mm3 (4.6-6.2); White Blood Count 4.9 K/mm3 (4.4-11.0)
[2020-04-08 18:45] LABS: ALB/GLOB Ratio 0.7 RATIO (0.9-2.4); AST(SGOT) 17 U/L (15-37); Alanine Aminotransfer ALT/SGPT 17 U/L (16-61); Alkaline Phosphatase 164 U/L (45-117); Anion Gap 3 (5-15); BUN 17 mg/dL (7-18); BUN/Creat Ratio 20.6 RATIO (10-20); Calcium,Total 8.2 mg/dL (8.5-10.1); Chloride 101 mmol/L (98-107); Creatinine, Serum 0.82 mg/dL (0.70-1.30); EST Glomerular Filtration Rate 98 mL/min (>60); Est Glom Filt Rate - Afr Amer 119 mL/min (>60); Estimated Creatinine Clearance 87.79 ml/min; Globulin 4.1 g/dL (2.2-4.2); Glucose 104 mg/dL (74-106); Protein, Total 7.1 g/dL (6.4-8.2); Sodium Level 139 mmol/L (136-145)
--- NOTE | 2020-04-08 18:45 | RAD_ITS ---
STUDY: X-RAY CHEST REASON FOR EXAM: Male, 69 years old. SYNCOPE DURING BOWEL MOVEMENT, STILL NOT FEELING WELL PER PT, NAUSEATED TECHNIQUE: AP COMPARISON: 12/13/2019 FINDINGS: Two lead cardiac conduction device is seen via the left subclavian vein with lead tips projecting over the right atrium and right ventricle, respectively. Sternal wires and mediastinal surgical clips compatible with prior CABG. EKG leads project over the chest. No airspace consolidation. Probable scarring in the left perihilar lung and lower lobe. There is no demonstrated pleural abnormality. There is mild cardiac enlargement. Normal mediastinum and cata. Stable visualized pulmonary arteries. Normal visualized aortic arch and descending thoracic aorta. There is demineralization of the osseous structures. Multiple rib fixation plates on the left side, new since the prior study. There is no demonstrated abnormality of the visualized soft tissue structures of the upper abdomen. RAD/Chest 1 View (Portable) IMPRESSION: Nonacute portable x-ray examination of the chest. Electronically Signed: Karlos Cabrera MD (Brooks) at 19:16 EST , Service support ,
[2020-04-08 18:51] LABS: Bacteria 0 SEEN /hpf (None Seen); Mucous, Urine 0 SEEN /hpf (<or=2+); Red Blood Cells-Urine 0 SEEN /hpf (0-5)
[2020-04-08 18:55] LABS: Color, Urine Yellow (Yellow); Glucose, Dipstick Normal (Normal); Ketone-Dipstick Negative (Negative); Leukocyte Esterase-Dipstick 25 /ul (Negative); Nitrite-Dipstick Negative (Negative); Occult Blood-Urine Negative /ul (Negative); Protein-Dipstick Negative (Negative); Urine Bilirubin Dipstick Negative (Negative); Urine Clarity Sl. Cloudy (Clear); Urine Urobilinogen 1 mg/dl (Normal)
[2020-04-08 19:38] LABS: Squamous Epithelial Cells - UA 10-25 SEEN /hpf (0-5); White Blood Cells 0-5 SEEN /hpf (0-5)
[2020-04-08] MEDS: Aspirin 81 MG TAB.CHEW 324 MG PO (20:41)
--- NOTE | 2020-04-08 20:57 | ED.DCSUM_ITS ---
- ER Visit Summary Date of Service: 04/08/20 Chief Complaint: Syncope History of Present Illness: The patient is a 69 M who presents with a syncopal episode that occurred today. Patient states he was on the toilet having a bowel movement. Patient states he stood up and felt lightheaded. Patient states he fell forward. Patient is unsure how long he was out for. does not think it was very long. Patient admits to some shortness of breath and cough. Patient also admits to some pain in his chest. Patient also admits to some neck pain. Patient denies any fevers or chills. Patient denies any nausea or vomiting. Physical Examination: Vital signs are stable. Patient is afebrile. Patient is in no acute distress. Oral mucosa is pink and moist. Neck is supple. Trachea is midline. There is no JVD. Heart was regular rate and rhythm. Lungs are clear and equal bilaterally. Abdomen is soft. Bowel sounds are normal. There is no tenderness. Cranial nerves II through XII are intact. There are no focal motor or sensory deficits noted. Extremities are intact. There is no calf tenderness or edema. Test Results: EKG was obtained. On my interpretation, there is normal sinus rhythm with a rate of sixty-six. There is T wave inversion in leads V3 through V6. These are new compared to previous EKG dated 12/13/2019. CBC shows a mild anemia with a hemoglobin of 9.8 and hematocrit of 33.4. Comprehensive metabolic profile was essentially within normal limits. Urinalysis does not show any evidence of urinary tract infection. Troponin was normal. CT scan of the brain was obtained. There is no acute intracranial abnormality. This was interpreted by the radiologist and reviewed by myself. Portable 1 view chest x-ray was obtained. On my interpretation, lung flores are clear. There is mild cardiomegaly. Bony thorax is normal. There is no acute process noted. Radiologist also interpreted the x-ray and agrees. Emergency Department Course and Treatment: Patient was given aspirin. Patient is resting comfortably on reevaluation. Given the EKG changes, I recommended admission to the hospital. Patient is agreeable with this. Case was discussed with the hospitalist. He recommended obtaining orthostatic vital signs. These were ordered. Patient will be admitted to the PCU. Patient understood and was agreeable with the plan. All questions were answered. Disposition: Admit to hospital Impression: 1. Syncope 2. EKG changes This note was generated with Array[employer] dictation software. It may contain incorrect words, spelling, and punctuation that were not noted in review of the chart prior to signing ED Disposition - Plan for ED Patient: Disposition: Acute Care Hospital [facility] Diagnosis: Syncope and collapse, Acute electrocardiogram changes [facility] [Primary Care Provider] -
--- NOTE | 2020-04-08 21:23 | PCM.HP.STD ---
Problem List (1) CAD (coronary artery disease) Status: Chronic Qualifiers: Coronary Disease-Associated Artery/Lesion type: [place] artery [place] vs. 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 Comment: Cardiac catheterization 02/24/2017?normal LV size should not, EF 55%, [place] multivessel CAD, patent SVG to diagonal 1, OM 2, and RCA, MASON to LAD previously reported as atretic/nonfunctional (not reevaluated at that time), advised medical therapy (9) History of coronary artery stent placement Status: Resolved Comment: Previously placed stent has an instent 85 % restenosis followed by subtotal occlusion per [facility] 02/2017 (10) H/O coronary artery bypass surgery Status: Resolved Comment: CABG x 4 MASON-LAD, SVG-D1, SVG-OM2, SVG-RCA (11) Essential (primary) hypertension Status: Chronic (12) Chest pain Status: Inactive Qualifiers: Chest pain type: unspecified Qualified Code(s): R07.9 - Chest pain, unspecified (13) CONI (acute kidney injury) Status: Chronic (14) EKATERINA (obstructive sleep apnea) Status: Chronic (15) Abnormal EKG Status: Acute (16) Chest wall contusion Status: Chronic (17) Atypical chest pain Status: Chronic (18) Left-sided weakness Status: Chronic (19) Hyperlipidemia Status: Chronic Qualifiers: Hyperlipidemia type: unspecified Qualified Code(s): E78.5 - Hyperlipidemia, unspecified (20) Obesity Status: Chronic Qualifiers: Obesity type: due to excess calories (21) Chronic respiratory failure Status: Chronic Qualifiers: Comment: baseline 3L continuously (22) DM type 2 (diabetes mellitus, type 2) Status: Chronic Qualifiers: Diabetes mellitus predatory animal exterminator insulin use: with predatory animal exterminator use Diabetes mellitus complication status: with unspecified complications (23) Obstructive sleep apnea Status: Chronic (24) Seizure Status: Chronic Qualifiers: (25) Aphasia Status: Chronic (26) CVA (cerebral vascular accident) Status: Chronic Qualifiers: CVA mechanism: unspecified Qualified Code(s): I63.9 - Cerebral infarction, unspecified Comment: Residual left-sided weakness History of Present Illness Date of Admission: 04/08/20 Chief Complaint: syncope The patient is a 69 year old M with a significant history of chest wall contusion; hypertension;CAD status post CABG; chronic home oxygen per nasal cannula; obstructive sleep apnea on CPAP; permanent pacemaker who presents to the emergency department with syncope. Reportedly patient had about 3 or 4 syncopes on the same day of presentation. He had a syncopal episode while sitting on the toilet. He felt lightheaded and he passed out on the sink in the toilet room. He reports other episodes where he passed out in his recliner and on his bed. He reports chronic chest pain that has not changed. Also he has shortness of breath with a productive cough. Of note in January 2020 his tractor rolled over him and he broke multiple ribs and required plates. Past Medical History Past Medical History (Chronic Problems): Chronic Problems (Last Reviewed 04/09/20 @ 00:[address] Carlos Alberto Fermin MD) CAD (coronary artery disease) (Chronic) UTI (urinary tract infection) (Chronic) Hypokalemia (Chronic) History of permanent cardiac pacemaker placement (Chronic 09/10/11) 2001 Atherosclerotic heart disease [place] coronary artery w/angina pectoris (Chronic) Cardiac catheterization 02/24/2017?normal LV size should not, EF 55%, [place] multivessel CAD, patent SVG to diagonal 1, OM 2, and RCA, MASON to LAD previously reported as atretic/nonfunctional (not reevaluated at that time), advised medical therapy Essential (primary) hypertension (Chronic) CONI (acute kidney injury) (Chronic) EKATERINA (obstructive sleep apnea) (Chronic) Chest wall contusion (Chronic) Atypical chest pain (Chronic) Left-sided weakness (Chronic) Hyperlipidemia (Chronic) Obesity (Chronic) Chronic respiratory failure (Chronic) baseline 3L continuously DM type 2 (diabetes mellitus, type 2) (Chronic) Obstructive sleep apnea (Chronic) Seizure (Chronic) Aphasia (Chronic) CVA (cerebral vascular accident) (Chronic) Residual left-sided weakness Medical History: Medical History (Last Reviewed 04/09/20 @ 00:[address] Carlos Alberto Fermin MD) Atherosclerotic heart disease [place] coronary artery w/angina pectoris (Chronic) I25.119 Cardiac catheterization 02/24/2017?normal LV size should not, EF 55%, [place] multivessel CAD, patent SVG to diagonal 1, OM 2, and RCA, MASON to LAD previously reported as atretic/nonfunctional (not reevaluated at that time), advised medical therapy Essential (primary) hypertension (Chronic) I10 Chest pain (Acute) R07.9 CONI (acute kidney injury) (Chronic) N17.9 EKATERINA (obstructive sleep apnea) (Chronic) G47.33 Abnormal EKG (Acute) R94.31 Chest wall contusion (Chronic) S20.219A Atypical chest pain (Chronic) R07.89 Left-sided weakness (Chronic) R53.1 Hyperlipidemia (Chronic) E78.5 Obesity (Chronic) E66.9 Chronic respiratory failure (Chronic) J96.10 baseline 3L continuously Allergies ezetimibe Allergy (Verified 04/08/20 17:02) Unknown Fish Containing Products Allergy (Verified 04/08/20 17:02) Unknown glyburide Allergy (Verified 04/08/20 17:02) Unknown isosorbide Allergy (Verified 04/08/20 17:02) PT UNSURE OF REACTION lisinopril Allergy (Verified 04/08/20 17:02) Unknown metformin Allergy (Verified 04/08/20 17:02) Nausea metoprolol Allergy (Verified 04/08/20 17:02) Unknown simvastatin Allergy (Verified 04/08/20 17:02) Unknown Home Medications: Ambulatory Orders Medication Instructions Recorded Aspirin E.C. [Ecotrin] 81 mg PO DAILY@0800 06/11/18 Atorvastatin Calcium [Lipitor] 80 mg PO QHS 06/11/18 Cholecalciferol (VIT D3) [Vitamin 3,000 units PO DAILY 06/11/18 D3] Clopidogrel Bisulfate [Clopidogrel] 75 mg PO DAILY 06/11/18 Escitalopram Oxalate [Lexapro] 10 mg PO DAILY 06/11/18 Finasteride [Proscar] 5 mg PO DAILY 06/11/18 Furosemide [Lasix] 20 mg PO DAILY 06/11/18 Insulin Regular, Human [Humulin R 195 unit SQ BREAKFAST 06/11/18 U-500 Kwikpen] Insulin Regular, Human [Humulin R 195 unit SQ DINNER 06/11/18 U-500 Kwikpen] Multivitamins,Ther W-Minerals 1 tablet PO DAILY 06/11/18 [Multivitamin With Minerals (BKC)] Pantoprazole Sodium 40 mg PO BIDCM 06/11/18 Ranolazine [Ranexa] 1,000 mg PO BID 06/11/18 Tamsulosin HCl [Flomax] 0.8 mg PO QHS 06/11/18 Acetaminophen [Tylenol Tablet] 650 mg PO Q6H PRN PRN tablet 06/21/18 Nitroglycerin (INPATIENT USE) 0.4 mg SUBLINGUAL Q5M PRN #30 07/22/18 [Nitrostat] tablet Carvedilol [Coreg] 18.75 mg PO BID 12/03/18 Diclofenac Sodium [Diclo Gel] 4 gm TP BID PRN PRN 11/08/19 Guaifenesin 10 ml PO TID PRN PRN 11/08/19 Ketoconazole [Nizoral] 1 applicatio TP DAILY 11/08/19 Amoxicillin/Potassium Clav 1 ea PO BID #10 tab 12/01/19 [Augmentin 875-125 Tablet] Albuterol Inhaler [Ventolin Hfa 1 puff INHALATION Q6H PRN PRN 04/08/20 (SP)] Gabapentin [Neurontin] 300 mg PO BID 04/08/20 Potassium Chloride [Klor-Con M20] 20 meq PO DAILY 04/08/20 levETIRAcetam tablet [Keppra 1,000 mg PO BID 04/08/20 tablet] Surgical History: Surgical History (Last Reviewed 04/09/20 @ 00:[address] Carlos Alberto Fermin MD) History of permanent cardiac pacemaker placement (Chronic) Onset Date: 09/10/11 Z95.0 2001 History of coronary artery stent placement (Resolved) Z95.5 Previously placed stent has an instent 85 % restenosis followed by subtotal occlusion per [facility] 02/2017 H/O coronary artery bypass surgery (Resolved) Z95.1 CABG x 4 MASON-LAD, SVG-D1, SVG-OM2, SVG-RCA Surgical History: angioplasty, coronary bypass surgery, pacemaker implantation, - - cabg,cholecystectemy, hernia, left knee, 4 stents Psychiatric History: Depression Smoking Status: Former smoker - *Family History Maternal History Items: Diabetes, Heart Disease Paternal History Items: Cancer, - Review of Systems Constitutional: Denies: Chills, Fever, Weight Change HEENT: Denies: Head Aches, Sinus Congestion, Sinus Drainage Cardiovascular: Reports: Chest Pain - chronic, Syncope. Denies: Palpitations Respiratory: Reports: Cough, Shortness of Breath, Sputum production. Denies: Shortness of breath at rest Gastrointestinal: Denies: Abdominal Pain, Nausea, Vomiting Genitourinary: Denies: Dysuria Musculoskeletal: Denies: Joint Pain, Joint Tenderness Skin: Denies: Rash, Wounds Neurological: Denies: Numbness, Tingling, Focal weakness Psychiatric: Denies: Anxiety, Depression, Homicidal Ideations, Suicidal Ideations Hematologic/ Lymphatic: Denies: Easy Bruising, Easy Bleeding VTE Information - Inpt Only VTE Present on Admission: No VTE Mechan Device Prophylaxis: None VTE Pharm Prophylaxis ordered?: Yes Patient Problems: Active and Suspected Problems (Last Reviewed 04/09/20 @ 00:[address] Carlos Alberto Fermin MD) Syncope and collapse (Acute) Acute electrocardiogram changes (Acute) Abnormal EKG (Acute) - Physical Exam Vitals/I&O's: Vital Signs Temp Pulse Resp BP Pulse Ox 99.1 F 70 25 H 150/71 H 90 04/08/20 16:54 04/08/20 21:04 04/08/20 21:04 04/08/20 21:04 04/08/20 21:04 Oxygen Flow Rate (L/min) 2 Oxygen Delivery Method Nasal Cannula Weight: 110.8 kg Body Mass Index (BMI) 35.0 Finger Stick Blood Glucose 138 General: Alert, Oriented x3, Cooperative HEENT: Atraumatic, PERRLA, EOMI, Normocephalic Oral: - - Edentulous Neck: Supple, No JVD, Negative Carotid Bruits Lungs: Clear to auscultation, Normal air movement Cardiovascular: Regular rate, No murmurs Abdomen: Bowel Sounds Present, Soft, Non Tender Extremities: No edema, Capillary Refill Less than 3 Seconds Skin: No rashes, No breakdown Musculoskeletal: No Tenderness to Palpation of Joints or Extremities Neurological: Cranial nerves II-XII grossly intact Psych/Mental Status: Normal Affect, Appropriate Laboratory Results 04/08/20 17:55: WBC 4.9, RBC 3.61 L, Hgb 9.8 L, Hct 33.4 L, MCV 92.5, MCH 27.1, MCHC 29.3 L, RDW Std Deviation 52.5 H, RDW Coeff of Cinda 15.4 H, Plt Count 220, MPV 11.2, Immature Gran % (Auto) 0.400, Neut % (Auto) 70.5 H, Lymph % (Auto) 19.0, [place] % (Auto) 7.3, Eos % (Auto) 2.4, Baso % (Auto) 0.4, Absolute Neuts (auto) 3.5, Absolute Lymphs (auto) 0.93, Nucleated RBC % 0 04/08/20 17:55: Sodium 139, Potassium 4.0, Chloride 101, Carbon Dioxide 35.0 H, Anion Gap 3 L, BUN 17, Creatinine 0.82, Estim Creat Clear Calc 87.79, Est GFR (MDRD) Af Amer 119, Est GFR (MDRD) Non-Af 98, BUN/Creatinine Ratio 20.6 H, Glucose 104, Calcium 8.2 L, Total Bilirubin 0.40, AST 17, ALT 17, Alkaline Phosphatase 164 H, Troponin I 0.022, Total Protein 7.1, Albumin 3.0 L, Globulin 4.1, Albumin/Globulin Ratio 0.7 L 04/08/20 18:45: Urine Color Yellow, Urine Clarity Sl. Cloudy, Urine pH 8.0, Ur Specific [place] 1.010, Urine Protein Negative, Urine Glucose (UA) Normal, Urine Ketones Negative, Urine Occult Blood Negative, Urine Nitrite Negative, Urine Bilirubin Negative, Urine Urobilinogen 1 H, Ur Leukocyte Esterase 25 H, Urine RBC 0 SEEN, Urine WBC 0-5 SEEN, Ur Squamous Epith Cells 10-25 SEEN, Urine Bacteria 0 SEEN, Urine Mucus 0 SEEN Assessment/Plan All Active Problems (Last Reviewed 04/09/20 @ 00:[address] Carlos Alberto Fermin MD) Syncope and collapse (Acute) Acute electrocardiogram changes (Acute) History of coronary artery stent placement (Resolved) H/O coronary artery bypass surgery (Resolved) Abnormal EKG (Acute) The patient is a 69 year old M with a significant history of chest wall contusion; hypertension;CAD status post CABG; permanent pacemaker who presents emergency department with syncope and collapse. Syncope and collapse Get orthostatic vitals Echocardiogram ordered. Observe on progressive care unit on telemetry Stress echo in 2018 showed ejection fraction of 55% CAD status post CABG Aspirin and Plavix continued Ranexa continued Abnormal EKG Noted to have new T wave inversions in V3 to V6 Trend troponin. Obstructive sleep apnea Home CPAP with oxygen bled in continued. Seizure disorder Keppra continued Hypertension Blood pressure is not within goal Coreg and Lasix continued. Trend blood pressure and adjust blood pressure medications. DVT prophylaxis Subcutaneous Lovenox. Miscellaneous: Patient with Augmentin on profile. He thinks he may have had cold for which the Augmentin was prescribed. Will not order Augmentin at this time. Nurse communication to check with family. OBSV E&M: 60934 Initial observation care L3
--- NOTE | 2020-04-08 22:04 | ECHOCS_ITS ---
Reason For Study: Syncope/Near Syncope Procedure This was a 2D Doppler, Color Flow transthoracic echocardiogram. Technically difficult study due to patients body habitus. Patient scanned sitting up due to SOB and multiple broken ribs w/plate on left side. Contrast injection performed. Exam performed portable in patient room. Left Ventricle Normal LV size. The estimated ejection fraction is 55 %. Left ventricular systolic function is normal. No regional wall motion abnormalities noted. Right Ventricle Normal RV size. ICD or pacer leads identified within the right ventricle. Normal systolic function. Atria The left atrium is mildly enlarged. The right atrium is not well visualized. Mitral Valve Normal mitral valve. Tricuspid Valve Normal tricuspid valve. Mild (1+) tricuspid valve insufficiency. Pulmonary artery systolic pressure is 30 mmHg. Aortic Valve Trisinus/trileaflet aortic valve. Pulmonic Valve The pulmonic valve is not well visualized. Great Vessels Normal aortic root. The pulmonary artery is normal size. Normal inferior vena cava. Pericardium/Pleural No pericardial effusion. Medication Diluted definity 4ml given slow IV push to enhance endocardial definition. MMode/2D Measurements & Calculations LVIDd: 5.0 cm IVSd: 1.3 cm Ao root diam: 3.2 cm LVIDs: 3.9 cm LVPWd: 1.1 cm LA dimension: 4.6 cm FS: 22.8 % LAV(MOD-bp): 68.4 ml LA A4 area: 21.0 cm2 LAV(MOD-bp) Indexed: 30.1 ml/m2 LAV(MOD-sp2): 69.5 ml LAV(MOD-sp4): 61.7 ml Time Measurements MV dec time: 0.24 sec Doppler Measurements & Calculations MV E max des: 106.8 cm/sec Lat Peak E' Des: 7.6 cm/sec Med Peak E' Des: 5.9 cm/sec MV A max des: 70.6 cm/sec E/E' lat: 14.0 E/E' med: 18.0 MV E/A: 1.5 MV V2 max: 119.7 cm/sec MV P1/2t max des: 121.7 cm/sec Ao V2 max: 125.2 cm/sec MV max P.7 mmHg MV P1/2t: 86.4 msec Ao max P.3 mmHg MV V2 mean: 56.4 cm/sec MV dec slope: 412.2 cm/sec2 MV mean P.6 mmHg MV V2 VTI: 34.3 cm MVA(P1/2t): 2.5 cm2 LV V1 max: 115.2 cm/sec PA V2 max: 131.9 cm/sec TR max des: 256.6 cm/sec LV V1 max P.3 mmHg TR max P.3 mmHg Interpretation Summary Normal LV size. The estimated ejection fraction is 55 %. Left ventricular systolic function is normal. ICD or pacer leads identified within the right ventricle. Mild (1+) tricuspid valve insufficiency. Pulmonary artery systolic pressure is 30 mmHg. Ordering Physician: Carlos Alberto Fermin Referring Physician: Jazmine CO Performed By: Vini Johnson RCS
[2020-04-08 23:15] LABS: Bedside Glucose 180 mg/dL (70-110)
[2020-04-09] VITALS (13 sets, daily range): BP systolic 116–158; BP diastolic 56–80; PULSE 59–78; RESP 16–18; TEMP 36.3–36.9; O2SAT 94–97
[2020-04-09 01:57] LABS: Absolute Lymphocyte Count 1.04 X10^3/uL (0.83-4.51); Absolute Neutrophil Count 3.2 X10^3/uL (2.0-7.7); Basophil# 0.01 X10^3/uL; Basophil% 0.2 % (0-1); Eosinophil# 0.14 X10^3/uL; Eosinophils% 2.9 % (0-5); Hematocrit 33.2 % (40-54); Hemoglobin 9.7 g/dL (13.0-16.5); Lymphocyte # 1.04 X10^3/ul (4.0); Lymphocyte % 21.6 % (19-41); Mean Corp Hgb Conc 29.2 g/dL (32-36); Mean Corpuscular Hgb 27.2 pg (27.0-32.0); Monocyte# 0.37 X10^3/uL; Monocyte% 7.7 % (0-10); NRBC Flagged by Analyzer 0 % (0-5); Neutrophil # 3.24 X10^3/uL (2.7-7.7); Neutrophil % 67.2 % (47-70); Platelet Count 194 K/mm3 (150-450); RBC Distribution Width CV 15.5 % (11.6-14.6); RBC Distribution Width SD 52.9 fl (35.1-43.9); Red Blood Count 3.57 M/mm3 (4.6-6.2); White Blood Count 4.8 K/mm3 (4.4-11.0)
[2020-04-09 02:19] LABS: ALB/GLOB Ratio 0.8 RATIO (0.9-2.4); AST(SGOT) 12 U/L (15-37); Alanine Aminotransfer ALT/SGPT 17 U/L (16-61); Albumin, Serum 2.9 g/dL (3.2-5.0); Alkaline Phosphatase 156 U/L (45-117); Anion Gap 4 (5-15); BUN 18 mg/dL (7-18); BUN/Creat Ratio 22.5 RATIO (10-20); Calcium,Total 8.2 mg/dL (8.5-10.1); Chloride 101 mmol/L (98-107); EST Glomerular Filtration Rate 102 mL/min (>60); Est Glom Filt Rate - Afr Amer 123 mL/min (>60); Estimated Creatinine Clearance 89.98 ml/min; Globulin 3.8 g/dL (2.2-4.2); Glucose 214 mg/dL (74-106); Potassium 3.7 mmol/L (3.5-5.1); Protein, Total 6.7 g/dL (6.4-8.2); Sodium Level 138 mmol/L (136-145)
[2020-04-09 06:50] LABS: Bedside Glucose 144 mg/dL (70-110)
[2020-04-09] MEDS: Ranolazine 500 MG Tablet 1000 MG PO (08:30)
[2020-04-09] MEDS: Carvedilol 6.25 MG Tablet 18.75 MG PO ×2 (08:30→15:55)
[2020-04-09] MEDS: Finasteride 5 MG Tablet PO (08:30)
[2020-04-09] MEDS: Multivitamins,Ther W-Minerals Tablet 1 TABLET PO (08:30)
[2020-04-09] MEDS: Pantoprazole Sodium 40 MG Tablet PO ×2 (08:31→15:55)
[2020-04-09] MEDS: Gabapentin 300 MG Capsule PO ×2 (08:31→21:52)
[2020-04-09] MEDS: Aspirin E.C. 81 MG Tablet PO (08:31)
[2020-04-09] MEDS: Clopidogrel Bisulfate 75 MG Tablet PO (08:32)
[2020-04-09] MEDS: Enoxaparin 40 MG/0.4 ML Syringe SC (08:32)
[2020-04-09] MEDS: Escitalopram Oxalate 10 MG Tablet PO (08:33)
[2020-04-09] MEDS: Furosemide 20 MG Tablet PO (08:33)
[2020-04-09] MEDS: levETIRAcetam 1,000 MG Tablet 1000 MG PO ×2 (08:33→21:52)
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
[2020-04-09] MEDS: Insulin Lispro 100 UNIT/ML INSULN.PEN SC ×3 (11:29→21:54)
[2020-04-09 11:31] LABS: Bedside Glucose 248 mg/dL (70-110)
[2020-04-09 16:11] LABS: Bedside Glucose 224 mg/dL (70-110)
[2020-04-09] MEDS: Ranolazine 500 MG Tablet PO (21:52)
[2020-04-09] MEDS: 0.9% Saline Lock 10 ML Syringe IV (21:52)
[2020-04-09] MEDS: Tamsulosin HCl 0.4 MG Capsule PO (21:52)
[2020-04-09] MEDS: Atorvastatin Calcium 80 MG Tablet PO (21:52)
[2020-04-09 22:25] LABS: Bedside Glucose 223 mg/dL (70-110)
[2020-04-10] VITALS (7 sets, daily range): BP systolic 119–147; BP diastolic 55–71; PULSE 66–81; RESP 16–18; TEMP 36.6; O2SAT 90–94
[2020-04-10] MEDS: Insulin Lispro 100 UNIT/ML INSULN.PEN SC ×2 (06:36→11:28)
[2020-04-10 07:09] LABS: Bedside Glucose 196 mg/dL (70-110)
--- NOTE | 2020-04-10 08:17 | PCM.DC ---
- Discharge Diagnoses Current Active Problems: Current Active and Chronic Problems (Last Reviewed 04/09/20 @ 00:[address] Carlos Alberto Fermin MD) CAD (coronary artery disease) (Chronic) UTI (urinary tract infection) (Chronic) Hypokalemia (Chronic) Syncope and collapse (Acute) Acute electrocardiogram changes (Acute) History of permanent cardiac pacemaker placement (Chronic 09/10/11) 2001 Atherosclerotic heart disease [place] coronary artery w/angina pectoris (Chronic) Cardiac catheterization 02/24/2017?normal LV size should not, EF 55%, [place] multivessel CAD, patent SVG to diagonal 1, OM 2, and RCA, [place] to LAD previously reported as atretic/nonfunctional (not reevaluated at that time), advised medical therapy Essential (primary) hypertension (Chronic) CONI (acute kidney injury) (Chronic) EK[place]INA (obstructive sleep apnea) (Chronic) Abnormal EKG (Acute) Chest wall contusion (Chronic) Atypical chest pain (Chronic) Left-sided weakness (Chronic) Hyperlipidemia (Chronic) Obesity (Chronic) Chronic respiratory failure (Chronic) baseline 3L continuously DM type 2 (diabetes mellitus, type 2) (Chronic) Obstructive sleep apnea (Chronic) Seizure (Chronic) Aphasia (Chronic) CVA (cerebral vascular accident) (Chronic) Residual left-sided weakness You will use the following diet at home:: Calorie/Carbohydrate Controlled (specify 1200, 1400, etc), Cardiac Your food should be the consistency of: Regular Your liquids should be the consistency of: Regular/Thin Discharge Activity: May Not Drive Weight Bearing Status: Weight bearing as tolerated Call your doctor if you observe: Fever of 101 or Higher, Coldness, Increased Pain, Numbness or Tingling, Change in Color, Inability to urinate, Inability to have a bowel movement, Shortness of breath, Dizziness, Fainting spells, Swelling in the ankles, Chest pain, Prolonged hiccoughing, Increased palpitations (irregular heartbeat), Calf discomfort, Uncontrolled pain Additional Instructions: Ranexa dose decreased to 500 mg twice daily and Flomax dose decreased to 0.4 mg daily at bedtime. Allergies/Adverse Reactions: Allergies ezetimibe Allergy (Verified 04/08/20 17:02) Unknown Fish Containing Products Allergy (Verified 04/08/20 17:02) Unknown glyburide Allergy (Verified 04/08/20 17:02) Unknown isosorbide Allergy (Verified 04/08/20 17:02) PT UNSURE OF REACTION lisinopril Allergy (Verified 04/08/20 17:02) Unknown metformin Allergy (Verified 04/08/20 17:02) Nausea metoprolol Allergy (Verified 04/08/20 17:02) Unknown simvastatin Allergy (Verified 04/08/20 17:02) Unknown Medications to take at Discharge Aspirin E.C. [Ecotrin] 81 mg PO DAILY@0800 06/11/18 Atorvastatin Calcium [Lipitor] 80 mg PO QHS 06/11/18 Cholecalciferol (VIT D3) [Vitamin D3] 3,000 units PO DAILY 06/11/18 Clopidogrel Bisulfate [Clopidogrel] 75 mg PO DAILY 06/11/18 Escitalopram Oxalate [Lexapro] 10 mg PO DAILY 06/11/18 Finasteride [Proscar] 5 mg PO DAILY 06/11/18 Furosemide [Lasix] 20 mg PO DAILY 06/11/18 Insulin Regular, Human [Humulin R U-500 Kwikpen] 195 unit SQ BREAKFAST 06/11/18 Insulin Regular, Human [Humulin R U-500 Kwikpen] 195 unit SQ DINNER 06/11/18 Multivitamins,Ther W-Minerals [Multivitamin With Minerals ([facility])] 1 tablet PO DAILY 06/11/18 Pantoprazole Sodium 40 mg PO BIDCM 06/11/18 Acetaminophen [Tylenol Tablet] 650 mg PO Q6H PRN PRN tablet 06/21/18 Nitroglycerin (INPATIENT USE) [Nitrostat] 0.4 mg SUBLINGUAL Q5M PRN #30 tablet 07/22/18 Carvedilol [Coreg] 18.75 mg PO BID 12/03/18 Diclofenac Sodium [Diclo Gel] 4 gm TP BID PRN PRN 11/08/19 Guaifenesin 10 ml PO TID PRN PRN 11/08/19 Ketoconazole [Nizoral] 1 applicatio TP DAILY 11/08/19 Albuterol Inhaler [Ventolin Hfa] 1 puff INHALATION Q6H PRN PRN 04/08/20 Gabapentin [Neurontin] 300 mg PO BID 04/08/20 Potassium Chloride [Klor-Con M20] 20 meq PO DAILY 04/08/20 levETIRAcetam tablet [Keppra tablet] 1,000 mg PO BID 04/08/20 Ranolazine [Ranexa] 500 mg PO BID #0 04/10/20 Tamsulosin HCl [Flomax] 0.4 mg PO QHS #30 cap 04/10/20 The following prescriptions were given: Tamsulosin HCl [Flomax] 0.4 mg PO QHS #30 cap Transmission Status: Pending to [id number] Primary Care Physician: [facility] [Primary Care Provider] - Please follow up with your Primary Care Physician in: In 2 weeks Test Results: Test results from this visit will be discussed in further detail at your follow-up appointment, if applicable.
--- NOTE | 2020-04-10 08:17 | DS.PCM_ITS ---
Discharge Date and Diagnosis - Problem List Patient Problems: Active and Suspected Problems (Last Reviewed 04/09/20 @ 00:[address] Carlos Alberto Fermin MD) Syncope and collapse (Acute) Acute electrocardiogram changes (Acute) Abnormal EKG (Acute) Date of Admission: 04/08/20 Date of Discharge: 04/10/20 - Primary Discharge Diagnosis Acute Problems: Active Problems (Last Reviewed 04/09/20 @ 00:[address] Carlos Alberto Fermin MD) Syncope and collapse (Acute) most probably secondary to medication Acute electrocardiogram changes (Acute) Abnormal EKG (Acute) - Secondary Discharge Diagnosis Chronic Problems: Chronic Problems (Last Reviewed 04/09/20 @ 00:[address] Carlos Alberto Fermin MD) CAD (coronary artery disease) (Chronic) UTI (urinary tract infection) (Chronic) Hypokalemia (Chronic) History of permanent cardiac pacemaker placement (Chronic 09/10/11) 2001 Atherosclerotic heart disease inupiat coronary artery w/angina pectoris (Chronic) Cardiac catheterization 02/24/2017?normal LV size should not, EF 55%, inupiat multivessel CAD, patent SVG to diagonal 1, OM 2, and RCA, MASON to LAD previously reported as atretic/nonfunctional (not reevaluated at that time), advised medical therapy Essential (primary) hypertension (Chronic) CONI (acute kidney injury) (Chronic) EKATERINA (obstructive sleep apnea) (Chronic) Chest wall contusion (Chronic) Atypical chest pain (Chronic) Left-sided weakness (Chronic) Hyperlipidemia (Chronic) Obesity (Chronic) Chronic respiratory failure (Chronic) baseline 3L continuously DM type 2 (diabetes mellitus, type 2) (Chronic) Obstructive sleep apnea (Chronic) Seizure (Chronic) Aphasia (Chronic) CVA (cerebral vascular accident) (Chronic) Residual left-sided weakness Hospital Course and Treatment Operations: None Summary of Care Provided: [] The patient is a 69 year old M with a significant history of chest wall contusion; hypertension;CAD status post CABG; permanent pacemaker who presents emergency department with syncope and collapse. As per the patient, he had 3-4 episodes of syncope on the day of presentation while sitting on the toilet. Syncope and collapse due to orthostatic hypotension: Orthostatic blood pressures showed drop in SBP on standing up but no change in heart rate. Ranexa dose decreased to 500 mg twice daily and tamsulosin decreased to 0.4 mg at bedtime. I think these 2 medications probably responsible for orthostatic hypotension 2D echo was done and reported as below. Interpretation Summary Normal LV size. The estimated ejection fraction is 55 %. Left ventricular systolic function is normal. ICD or pacer leads identified within the right ventricle. Mild (1+) tricuspid valve insufficiency. Pulmonary artery systolic pressure is 30 mmHg. Stress echo in 2018 showed ejection fraction of 55% CAD status post CABG Aspirin and Plavix continued. Abnormal EKG Noted to have new T wave inversions in V3 to V6 Serial troponins did not show significant change and all negative. Obstructive sleep apnea Home CPAP with oxygen bled in continued. Seizure disorder Keppra continued Hypertension Blood pressure is not within goal Coreg and Lasix continued. BPH: Flomax dose decreased to 0.4 mg at bedtime. Patient also is on finasteride. DVT prophylaxis Subcutaneous Lovenox. Discharge medication reconciliation done. Discharge follow-up instructions completed. Discharge process discussed with the patient and all questions were answered to patient's satisfaction. Total time spent, exact 35 minutes on discharge meds reconciliation, examination, coordination of care with nurses and ancillary staff, review of imaging and blood test and discussion with the patient on follow-up instructions Patient Problems: Active and Suspected Problems (Last Reviewed 04/09/20 @ 00:[address] Carlos Alberto Fermin MD) Syncope and collapse (Acute) Acute electrocardiogram changes (Acute) Abnormal EKG (Acute) Objective: Seen and examined. Blood pressure and heart rate are normal range. Morning orthostatic blood pressure was negative for significant change of blood pressure or heart rate. Patient does not feel dizziness, lightheadedness on walking. Physical exam General: Alert, Oriented x3, Cooperative HEENT: Atraumatic, PERRLA, EOMI, Normocephalic Oral: No Gingival or Mucosal Lesions/ Ulcerations Neck: Supple, No JVD, Negative Carotid Bruits Lungs: Air entry diminished in bilateral lung bases. No crepitation/rhonchi Cardiovascular: Regular rate, Regular Rhythm, Normal S1, Normal S2, No murmurs Abdomen: Bowel Sounds Present, Soft, Non Tender, Non-Distended : No renal angle tenderness. No suprapubic tenderness. Extremities: No edema, Capillary Refill Less than 3 Seconds Skin: No rashes, No breakdown Musculoskeletal: No Tenderness to Palpation of Joints or Extremities Neurological: Cranial nerves II-XII grossly intact, Deep Tendon Reflexes 2+/4 and Symmetrical, Neuro grossly intact Psych/Mental Status: Normal Affect, Appropriate. - Physical Exam Vitals/I&O's: Vital Signs Temp Pulse Resp BP Pulse Ox 97.8 F 73 18 119/55 L 94 04/10/20 02:20 04/10/20 07:00 04/10/20 02:20 04/10/20 05:14 04/10/20 07:47 Oxygen Flow Rate (L/min) 2.5 Oxygen Delivery Method Bi-pap Weight: 235 lb 10.786 oz Body Mass Index (BMI) 33.7 Finger Stick Blood Glucose 138 Orthostatic Vital Signs Start: 04/08/20 22:59 Freq: q24h Status: Active Protocol: Activity Type Activity Date Activity User E-Sign Co-Sign Detail Recorded Client Recorded Date Recorded By Document 04/10/20 05:14 MM [id number] 04/10/20 05:15 MM 04/10/20 05:14 Orthostatic Vitals Standing -Blood Pressure (90/60-120/80) 131/63 H -Extremity Use Left Arm -Pulse Rate (60-100) 81 Sitting -Blood Pressure (90/60-120/80) 134/64 H -Extremity Use Left Arm -Pulse Rate (60-100) 76 Lying -Blood Pressure (90/60-120/80) 119/55 L -Extremity Use Left Arm -Pulse Rate (60-100) 79 Intake and Output for Last 24 Hours 04/08/20 04/09/20 04/10/20 23:59 23:59 23:59 Intake Total 1050 / 1050 Output Total 1525 / 1525 250 / 250 Balance -475 / -475 -250 / -250 Laboratory Results 04/09/20 11:24: POC Glucose 248 H 04/09/20 15:52: POC Glucose 224 H 04/09/20 21:48: POC Glucose 223 H 04/10/20 06:35: POC Glucose 196 H Current Medications Acetaminophen (Acetaminophen 325 Mg Tablet) 650 mg PO Q6H PRN PRN PRN Reason: Pain Score 1-10/Temp > 100.7 F Aspirin (Aspirin E.C. 81 Mg Tablet) 81 mg PO DAILY@0800 ALEXUS Last Admin: 04/09/20 08:31 Dose: 81 mg Documented by: Atorvastatin Calcium (Atorvastatin Calcium 80 Mg Tablet) 80 mg PO QHS [facility] Last Admin: 04/09/20 21:52 Dose: 80 mg Documented by: Carvedilol ([facility]il[facility] 6.25 Mg Tablet) [facility] Last Admin: 04/09/20 15:55 Dose: 18.75 mg Documented by: Cholecalciferol (Cholecalciferol (Vit D3) 1,000 Unit (25mcg)) 3,000 unit PO DAILY [facility] Last Admin: 04/09/20 08:31 Dose: 3,000 unit Documented by: Clopidogrel Bisulfate (Clopidogrel Bisulfate 75 Mg Tablet) 75 mg PO DAILY [facility] Last Admin: 04/09/20 08:32 Dose: 75 mg Documented by: Dextrose (Dextrose 50%-Water 25 Gm/50 Ml Disp.Syrin) 0 gm IV X1 PRN; Protocol PRN Reason: Hypoglycemia Enoxaparin Sodium (Enoxaparin 40 Mg/0.4 Ml Syringe) 40 mg SC DAILY [facility] Last Admin: 04/09/20 08:32 Dose: 40 mg Documented by: Escitalopram Oxalate (Escitalopram Oxalate 10 Mg Tablet) 10 mg PO DAILY [facility] Last Admin: 04/09/20 08:33 Dose: 10 mg Documented by: Finasteride (Finasteride 5 Mg Tablet) 5 mg PO DAILY [facility] Last Admin: 04/09/20 08:30 Dose: 5 mg Documented by: Furosemide (Furosemide 20 Mg Tablet) 20 mg PO DAILY [facility] Last Admin: 04/09/20 08:33 Dose: 20 mg Documented by: Gabapentin (Gabapentin 300 Mg Capsule) 300 mg PO BID [facility] Last Admin: 04/09/20 21:52 Dose: 300 mg Documented by: Glucagon (Glucagon 1 Mg/Ml Syringe) 1 mg IM .X1 PRN PRN Reason: Hypoglycemia Guaifenesin (Guaifenesin 10 Ml Udc (200mg/10ml)) 10 ml PO TID PRN PRN PRN Reason: COUGH Insulin Human Lispro (Insulin Lispro 100 Unit/Ml Insuln.Pen) 0 unit SC ACHS [facility]; Protocol Last Admin: 04/10/20 06:36 Dose: 2 units Documented by: Levetiracetam (Levetiracetam 1,000 Mg Tablet) 1,000 mg PO BID [facility] Last Admin: 04/09/20 21:52 Dose: 1,000 mg Documented by: Melatonin (Melatonin 3 Mg Tablet) 3 mg PO QHS PRN PRN PRN Reason: INSOMNIA Multivitamins/Minerals (Multivitamins,Ther W-Minerals Tablet) [facility] Last Admin: 04/09/20 08:30 Dose: 1 tablet Documented by: Ondansetron HCl (Ondansetron 4 Mg/2 Ml Vial) 4 mg IV Q8H PRN PRN PRN Reason: NAUSEA/VOMITING Pantoprazole Sodium (Pantoprazole Sodium 40 Mg Tablet) [facility] Last Admin: 04/09/20 15:55 Dose: 40 mg Documented by: Ranolazine (Ranolazine 500 Mg Tablet) 500 mg PO BID [facility] Last Admin: 04/09/20 21:52 Dose: 500 mg Documented by: Sodium Chloride (0.9% Saline Lock 10 Ml Syringe) 10 - 40 ml IV UD PRN PRN Reason: SALINE FLUSH Last Admin: 04/09/20 21:52 Dose: 10 ml Documented by: Tamsulosin HCl (Tamsulosin Hcl 0.4 Mg Capsule) [facility] Last Admin: 04/09/20 21:52 Dose: 0.4 mg Documented by: Home Medications: Medications to take at Discharge Aspirin E.C. [Ecotrin] 81 mg PO DAILY@0800 06/11/18 Atorvastatin Calcium [Lipitor] 80 mg PO QHS 06/11/18 Cholecalciferol (VIT D3) [Vitamin D3] 3,000 units PO DAILY 06/11/18 Clopidogrel Bisulfate [Clopidogrel] 75 mg PO DAILY 06/11/18 Escitalopram Oxalate [Lexapro] 10 mg PO DAILY 06/11/18 Finasteride [Proscar] 5 mg PO DAILY 06/11/18 Furosemide [Lasix] 20 mg PO DAILY 06/11/18 Insulin Regular, Human [Humulin R U-500 Kwikpen] 195 unit SQ BREAKFAST 06/11/18 Insulin Regular, Human [Humulin R U-500 Kwikpen] 195 unit SQ DINNER 06/11/18 Multivitamins,Ther W-Minerals [Multivitamin With Minerals (BKC)] 1 tablet PO DAILY 06/11/18 Pantoprazole Sodium 40 mg PO BID 06/11/18 Acetaminophen [Tylenol Tablet] 650 mg PO Q6H PRN PRN tablet 06/21/18 Nitroglycerin (INPATIENT USE) [Nitrostat] 0.4 mg SUBLINGUAL Q5M PRN #30 tablet 07/22/18 Carvedilol [Coreg] 18.75 mg PO BID 12/03/18 Diclofenac Sodium [Diclo Gel] 4 gm TP BID PRN PRN 11/08/19 Guaifenesin 10 ml PO TID PRN PRN 11/08/19 Ketoconazole [Nizoral] 1 applicatio TP DAILY 11/08/19 Albuterol Inhaler [Ventolin Hfa] 1 puff INHALATION Q6H PRN PRN 04/08/20 Gabapentin [Neurontin] 300 mg PO BID 04/08/20 Potassium Chloride [Klor-Con M20] 20 meq PO DAILY 04/08/20 levETIRAcetam tablet [Keppra tablet] 1,000 mg PO BID 04/08/20 Ranolazine [Ranexa] 500 mg PO BID #0 04/10/20 Tamsulosin HCl [Flomax] 0.4 mg PO QHS #30 cap 04/10/20 Following Prescriptions Were Given to Patient: Tamsulosin HCl [Flomax] 0.4 mg PO QHS #30 cap Transmission Status: Received by [id number] - Medical Necessity - Tobacco Use Smoking Status: Former smoker Meaningful Use Info Meaningful Use Diagnoses (Choose all that apply): None applicable OBSV E&M: 92191 Observation care discharge
[2020-04-10] MEDS: Escitalopram Oxalate 10 MG Tablet PO (08:26)
[2020-04-10] MEDS: Gabapentin 300 MG Capsule PO (08:26)
[2020-04-10] MEDS: Clopidogrel Bisulfate 75 MG Tablet PO (08:26)
[2020-04-10] MEDS: Carvedilol 6.25 MG Tablet 18.75 MG PO (08:27)
[2020-04-10] MEDS: Pantoprazole Sodium 40 MG Tablet PO (08:27)
[2020-04-10] MEDS: levETIRAcetam 1,000 MG Tablet 1000 MG PO (08:27)
[2020-04-10] MEDS: Multivitamins,Ther W-Minerals Tablet 1 TABLET PO (08:27)
[2020-04-10] MEDS: Ranolazine 500 MG Tablet PO (08:27)
[2020-04-10] MEDS: Furosemide 20 MG Tablet PO (08:28)
[2020-04-10] MEDS: Aspirin E.C. 81 MG Tablet PO (08:28)
[2020-04-10] MEDS: Finasteride 5 MG Tablet PO (08:28)
--- NOTE | 2020-04-10 10:09 | CASEMGMT ---
KRISTI GERONIMO assessment: Face to Face with patient for initial transition planning/care coordination assessment. KRISTI GERONIMO introduced self and role at [facility], pt voices understanding and consents to assessment at this time. Pt is sitting up in chair in no distress at this time. Pt is A/Ox4 at this time and answers all questions appropriately at this time. Pt states to call to see who HHC is set up with and to let her know about the AD's. Care providers, pharmacy, and demographics verified at this time. Presentation: Pt passed out while having BM, not feeling well since, nauseated Admitting dx: Syncope PCP: [facility] Specialists: Pt states has seen numerous specialists at the [facility] over the years. Preferred Pharmacy: [facility] [place]: [place]/[facility] A Prescription Benefit: [place] Living Will/HPOA: Pt states has LW/HPOA and pt/ are aware that they are not on file at [facility] at this time. Pt states , Lucina Coello, is HPOA. states she will try to remember to bring AD in when she comes today. LNOK: Lucina Cintron, /HPOA Living Arrangements: Pt states lives with in 1 story home with 1 step in and states no concerns at home at this time. Pt states is independent with ADL's at this time. Transportation: Pt states drives and states no transportation concerns at this time. DME/HHC: Pt states has the following DME: cane, walker, electric scooter, grab bars, shower chair, bipap, and 2L [facility]. Pt states no need for any further DME at this time. Pt states has been to [facility]just left 3 wks ago). Pt states is current with HHC and per , it is [facility]. Call to [facility] and per rep, pt is active for SN, PT/OT/ST at this time. NAWAF order faxed with H&P at this time. D/C summary/instructions to be faxed once obtained. [facility] rep is also aware that pt to be discharged today, voices understanding. Pt/ state no concerns with pt going home at time of discharge. Pt states is retired. Pt states does not smoke cigarettes but does drink ETOH occasionally. Pt states no further concerns/needs at this time. CM to follow for any further discharge planning/needs. Advised pt to ask for CM if any further questions/concerns/needs arise, voices understanding. Pt Goal: Home w/ NAWAF HHC Plan: Home w/ NAWAF HHC Obdulia BERRY CM
[2020-04-10 11:35] LABS: Bedside Glucose 250 mg/dL (70-110)
--- NOTE | 2020-04-10 11:35 | PHA.DC.MR ---
Pharmacy Service has performed discharge medication reconciliation for this patient. The patient's discharge medication list was reviewed for discrepancies and discrepancies were resolved. Home Medications Aspirin E.C. [Ecotrin] 81 mg PO DAILY@0800 06/11/18 Atorvastatin Calcium [Lipitor] 80 mg PO QHS 06/11/18 Cholecalciferol (VIT D3) [Vitamin D3] 3,000 units PO DAILY 06/11/18 Clopidogrel Bisulfate [Clopidogrel] 75 mg PO DAILY 06/11/18 Escitalopram Oxalate [Lexapro] 10 mg PO DAILY 06/11/18 Finasteride [Proscar] 5 mg PO DAILY 06/11/18 Furosemide [Lasix] 20 mg PO DAILY 06/11/18 Insulin Regular, Human [Humulin R U-500 Kwikpen] 195 unit SQ BREAKFAST 06/11/18 Insulin Regular, Human [Humulin R U-500 Kwikpen] 195 unit SQ DINNER 06/11/18 Multivitamins,Ther W-Minerals [Multivitamin With Minerals (BKC)] 1 tablet PO DAILY 06/11/18 Pantoprazole Sodium 40 mg PO BIDCM 06/11/18 Acetaminophen [Tylenol Tablet] 650 mg PO Q6H PRN PRN tablet 06/21/18 Nitroglycerin (INPATIENT USE) [Nitrostat] 0.4 mg SUBLINGUAL Q5M PRN #30 tablet 07/22/18 Carvedilol [Coreg] 18.75 mg PO BID 12/03/18 Diclofenac Sodium [Diclo Gel] 4 gm TP BID PRN PRN 11/08/19 Guaifenesin 10 ml PO TID PRN PRN 11/08/19 Ketoconazole [Nizoral] 1 applicatio TP DAILY 11/08/19 Albuterol Inhaler [Ventolin Hfa] 1 puff INHALATION Q6H PRN PRN 04/08/20 Gabapentin [Neurontin] 300 mg PO BID 04/08/20 Potassium Chloride [Klor-Con M20] 20 meq PO DAILY 04/08/20 levETIRAcetam tablet [Keppra tablet] 1,000 mg PO BID 04/08/20 Ranolazine [Ranexa] 500 mg PO BID #0 04/10/20 Tamsulosin HCl [Flomax] 0.4 mg PO QHS #30 cap 04/10/20
--- NOTE | 2020-04-12 12:33 | CASEMGMT ---
KRISTI GERONIMO Discharge Follow-Up Phone Call. Bryanna: 13 Strata: 3 Discharge Date: 04/10/20 Adm Dx: Syncope. Call to pt to inquire about how he has been doing since being discharged from the hospital. Pt states, I'm doing okay. He states he has not had any syncopal or near-syncopal episodes since returning home. He denies having any questions/concerns. When KRISTI GERONIMO inquired about the new dosages/scripts for Ranexa and Flomax, pt states that his manages his medications and asked for KRISTI GERONIMO to talk with her. then got on the phone. states pt has Flomax @ home already and was taking 2 capsules of Flomax every HS and she has cut it down to 1 capsule as instructed. She also states pt had Ranexa at home (1,000 mg tablets) and she is cutting them in half d/t dosage has been decreased to 500 mg BID. KRISTI GERONIMO advised for to contact [facility] re: the [facility]exa, as this is an extended release tablet and it is not advised for these not to be cut in half and PCP may want to give pt a new script for 500 mg tablets. voices understanding. [facility] to [facility] and was advised to inquire about this when they call back. denies having any questions/concerns/needs and thanked KRISTI GERONIMO for calling. Wendy ATKINSON RN, CM
--- NOTE | 2020-04-12 14:16 | CASEMGMT ---
D/C summary faxed to [facility] at this time. Obdulia BERRY CM
== END 2020-04-10 13:00 | disposition home or self-care (01) | DRG 312 ==
LOC: ED 21:06 → PCU 21:18
PROVIDERS: Admitting Provider Hospitalist; Emergency Provider Emergency Medicine; Visit Provider Internal Medicine
DX: I95.1 Orthostatic hypotension (principal); J96.10 Chronic respiratory failure, unspecified whether with hypoxia or hypercapnia; R47.01 Aphasia; R94.31 Abnormal electrocardiogram [ECG] [EKG]; E87.6 Hypokalemia; I25.119 Atherosclerotic heart disease of native coronary artery with unspecified angina pectoris; I10 Essential (primary) hypertension; G47.33 Obstructive sleep apnea (adult) (pediatric); E78.5 Hyperlipidemia, unspecified; E11.9 Type 2 diabetes mellitus without complications; G40.909 Epilepsy, unspecified, not intractable, without status epilepticus; I07.1 Rheumatic tricuspid insufficiency; N40.0 Benign prostatic hyperplasia without lower urinary tract symptoms; E66.09 Other obesity due to excess calories; S20.219A Contusion of unspecified front wall of thorax, initial encounter; W19.XXXA Unspecified fall, initial encounter; Z87.891 Personal history of nicotine dependence; Z95.5 Presence of coronary angioplasty implant and graft; Z95.1 Presence of aortocoronary bypass graft; Z86.73 Personal history of transient ischemic attack (TIA), and cerebral infarction without residual deficits; Z79.02 Long term (current) use of antithrombotics/antiplatelets; Z79.4 Long term (current) use of insulin; Z79.82 Long term (current) use of aspirin; Z83.3 Family history of diabetes mellitus; Z95.0 Presence of cardiac pacemaker; Z68.35 Body mass index [BMI] 35.0-35.9, adult
CPT/HCPCS: 36415; 70450; 71045; 80053; 81001; 82962; 84484; 85025; 93005; 93306; 97110; 97162; 97166; 97535; 99285; Q9957; A4216; C8929

== ENCOUNTER 2020-05-09 17:33 | Inpatient (IN) | payer OTHER, MEDICARE, SELFPAY ==
[2020-04-08 22:04] VITALS: BMI 33.7
[2020-05-09] VITALS (13 sets, daily range): BP systolic 120–184; BP diastolic 58–78; PULSE 60–73; RESP 12–253; TEMP 35.9–37.1; O2SAT 92–98; BMI 34.8; BMI 34.7
--- NOTE | 2020-05-09 17:43 | EKG12_ITS ---
Test Reason : CODE BLUE Blood Pressure : / mmHG Vent. Rate : 082 BPM Atrial Rate : 082 BPM P-R Int : 184 ms QRS Dur : 114 ms QT Int : 378 ms P-R-T Axes : 095 -17 077 degrees QTc Int : 441 ms Normal sinus rhythm Nonspecific ST and T wave abnormality Abnormal ECG Confirmed by BRYN GUALLPA, JULIO C ([id number]), video tape editor NADINE FERRER ([id number]) on 05/11/2020 9:33:58 AM Referred By: OSMAN Confirmed By:BELEN CLEMENTE MD
--- NOTE | 2020-05-09 17:50 | RAD_ITS ---
INDICATION: cough SOB EXAMINATION/TECHNIQUE: X-RAY - XR Chest 1 View COMPARISON: 04/08/2020. FINDINGS: Two lead cardiac conduction device is seen via the left subclavian vein with lead tips projecting over the right atrium and right ventricle, respectively. Sternal wires and mediastinal surgical clips compatible with prior CABG. EKG leads project over the chest. Increased interstitial markings. The heart is enlarged. No pleural effusion or pneumothorax. No acute osseous abnormalities. RAD/Chest 1 View (Portable) IMPRESSION: Increased interstitial markings may represent edema and/or infection. Electronically Signed: Eric Martinez MD at 18:53 EDT Tel , Service support ,
[2020-05-09 18:00] LABS: Absolute Lymphocyte Count 1.03 X10^3/uL (0.83-4.51); Basophil# 0.01 X10^3/uL; Basophil% 0.2 % (0-1); Eosinophils% 1.5 % (0-5); Hematocrit 35.3 % (40-54); Hemoglobin 10.2 g/dL (13.0-16.5); Lymphocyte # 1.03 X10^3/ul (4.0); Lymphocyte % 15.7 % (19-41); Mean Corp Hgb Conc 28.9 g/dL (32-36); Mean Corpuscular Hgb 25.2 pg (27.0-32.0); Mean Corpuscular Volume 87.4 fL (80-94); Mean Platelet Vol. 10.2 fl (6.2-12.0); Monocyte# 0.44 X10^3/uL; Monocyte% 6.7 % (0-10); NRBC Flagged by Analyzer 0 % (0-5); Neutrophil # 4.97 X10^3/uL (2.7-7.7); Neutrophil % 75.6 % (47-70); Platelet Count 217 K/mm3 (150-450); RBC Distribution Width CV 16.1 % (11.6-14.6); RBC Distribution Width SD 51.9 fl (35.1-43.9); Red Blood Count 4.04 M/mm3 (4.6-6.2); White Blood Count 6.6 K/mm3 (4.4-11.0)
[2020-05-09 18:19] LABS: International Normalized Ratio 1.3; Prothrombin Time (Protime)PT. 15.1 SECONDS (11.7-14.9)
[2020-05-09 18:25] LABS: D-Dimer Quantitative (DVT/PE) 3.37 FEU/ug/m (0.27-0.49)
[2020-05-09 18:27] LABS: Anion Gap 6 (5-15); BUN 20 mg/dL (7-18); Calcium,Total 8.4 mg/dL (8.5-10.1); Chloride 99 mmol/L (98-107); Creatinine, Serum 0.91 mg/dL (0.70-1.30); EST Glomerular Filtration Rate 88 mL/min (>60); Est Glom Filt Rate - Afr Amer 106 mL/min (>60); Estimated Creatinine Clearance 79.11 ml/min; Glucose 239 mg/dL (74-106); Potassium 3.8 mmol/L (3.5-5.1); Sodium Level 138 mmol/L (136-145)
--- NOTE | 2020-05-09 18:32 | CT_ITS ---
STUDY: CTA CHEST REASON FOR EXAM: Male, 69 years old. Dyspnea. Syncope. Elevated d-dimer. RADIATION DOSAGE (If Supplied By Facility): CTDIvol = ( 14.96 ) mGy, DLP = ( 538.44 ) mGycm TECHNIQUE: The examination was performed with the intravenous administration of IV 100mL Isovue-370. Post-processing of the angiographic images was performed, with multiplanar reformation and 3D reconstruction. Individualized dose optimization techniques were used for this CT. COMPARISON: Chest, 05/09/2020. CTA of the chest, 12/02/2020. FINDINGS: Normal enhancement of the main pulmonary artery and right and left pulmonary arteries. Normal enhancement of the bilateral peripheral pulmonary arteries. There is no demonstrated pulmonary embolism. Normal thoracic aorta and visualized great vessels. There is no demonstrated aortic dissection. Normal heart and pericardium. There is evidence of CABG procedure. Pacer leads are seen in the right heart. There is prevascular paratracheal and subcarinal lymphadenopathy. No mobile or hilar lymphadenopathy is also noted. Normal visualized trachea and bronchi. The lungs are well expanded. There is fluid seen in the left oblique fissure. There are bilateral pleural effusions with subsegmental atelectasis. There is vague patchy groundglass infiltrates in the right middle lobe. No other mass or infiltrate is seen. There is increased AP diameter of the chest. There is evidence of median sternotomy. There are plates and screws along multiple lateral left ribs. Old right-sided rib fractures are also noted. There are degenerative changes of thoracic spine. Question hepatomegaly. The upper abdomen is otherwise grossly normal with the exception of a small cyst off the upper pole the right kidney. CT/CTA Chest W/WO Contrast IMPRESSION: 1. No evidence of pulmonary embolus. 2. No aortic dissection or aneurysm. 3. Bilateral pleural effusions and atelectasis not previously noted. 4. Vague ground glass infiltrates in right middle lobe not previously noted. 5. Otherwise stable findings. Electronically Signed: Henrry Baron DO at 19:45 EDT Tel [phone], Service support ,
--- NOTE | 2020-05-09 18:40 | ED.VIS.GEN ---
History of Present Illness Chief Complaint: Cough Informant: Patient, Significant Other Onset: Hours Context: Sudden Onset Timing: Continuous Quality: Shortness of breath Location: Respiratory Current Severity: Severe - Patient had period of unresponsiveness and was gasping for breath in triage. CODE BLUE was called. Maximum Severity: Severe Worsened by: Unknown Relieved by: Nothing Associated Symptoms: Denies fever, chills night sweats. Narrative: She is 69-year-old male with mild medical problems who was a multiple trauma with apparent flail chest requiring open reduction and fixation of his multiple rib fractures on the left. He does have a pacemaker. He presents because of shortness of breath and cough. He does have history of PE. He denies headache. His cough is nonproductive. He denies fever or chills. He denies upper respiratory symptoms. He denies GI symptoms. He denies hematuria. Denies black or maroon-colored stool. He does report swelling of his lower extremities. was the informant since he had a syncopal event with cyanosis. 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 Comment: Cardiac catheterization 02/24/2017?normal LV size should not, EF 55%, [place] multivessel CAD, patent SVG to diagonal 1, OM 2, and RCA, MASON to LAD previously reported as atretic/nonfunctional (not reevaluated at that time), advised medical therapy (3) CAD (coronary artery disease) Status: Chronic (4) Essential (primary) hypertension Status: Chronic (5) Hyperlipidemia Status: Chronic (6) Left-sided weakness Status: Chronic (7) EKATERINA (obstructive sleep apnea) Status: Chronic (8) Obesity Status: Chronic Past Medical History - Allergies and Home Meds Allergies/Adverse Reactions: Allergies ezetimibe Allergy (Verified 05/09/20 17:34) Unknown Fish Containing Products Allergy (Verified 05/09/20 17:34) Unknown glyburide Allergy (Verified 05/09/20 17:34) Unknown isosorbide Allergy (Verified 05/09/20 17:34) PT UNSURE OF REACTION lisinopril Allergy (Verified 05/09/20 17:34) Unknown metformin Allergy (Verified 05/09/20 17:34) Nausea metoprolol Allergy (Verified 05/09/20 17:34) Unknown simvastatin Allergy (Verified 05/09/20 17:34) Unknown Primary Care Physician: [facility],[place] [Primary Care Provider] - Prior records reviewed: Yes Surgical History: angioplasty, coronary bypass surgery, pacemaker implantation, - - cabg,cholecystectemy, hernia, left knee, 4 stents Lives: Spouse/ Significant Other Smoking Status: Former smoker - Family History Maternal Family History: Reports: Diabetes, Heart Disease Paternal Family History: Reports: Cancer, - Review of Systems General: Denies: Chills, Fever, Malaise, Sweats Eyes: Denies: Visual changes - bilaterally, Blurred Vision - bilaterally ENT: Denies: Bilateral ear pain, Rhinorrhea Cardiovascular: Denies: Chest pain, Palpitations Respiratory: Reports: Dyspnea, Cough, Dyspnea on exertion. Denies: Sputum, Orthopnea Gastrointestinal: Denies: Abdominal pain, Nausea, Vomiting, Diarrhea, Melena, Hematochezia Genitourinary: Denies: Dysuria, Hematuria, Frequency Musculoskeletal: Reports: Swelling. Denies: Myalgias, Arthralgias, Neck pain, Back pain, Extremity Pain, -, - Skin: Denies: Rash, Wounds Neurological: Reports: Weakness. Denies: Headache Endocrine: Denies: Polyuria, Polydipsia Hematologic: Reports: Easy bruising Allergy: Denies: Uticaria Physical Exam Vital Signs/Narrative: Vital Signs Temp BP 05/09/20 17:34 98.1 F 184/77 H Inital Vital Signs reviewed: Yes General: Well nourished, Well developed, Obese, No Acute Distress - When I saw patient he was unresponsive. He did respond to noxious stimuli, however. Head: Normocephalic, Atraumatic Eyes: Perrl, EOMI, Pale conjunctiva. Negative for: Scleral icterus ENT: Moist mucous membranes, No rhinorrhea, TM's clear Neck: Supple, Nontender, No lymphadenopathy, No JVD Cardiovascular: Regular rate, Regular rhythm, No murmurs, Normal S1, Normal S2 Respiratory: Rales, Decreased Air Movement, - - Appears tachypneic. Abdomen: Soft, Nontender, Nondistended, Normal bowel sounds Back: Nontender, Normal Inspection Extremities: Nontender, Edema Skin: No rash, Cyanosis, No Trauma, Pallor. Negative for: Normal color, Diaphoresis, Jaundice Neurological: Negative for: Alert, Oriented x3 Psychological: Normal affect Diagnostic/Tx/Re-eval Chest X-Ray - ED: 1 View, Read by ED Physician, Normal, Bony Structures, No Acute Disease, Chronic Changes, - - Significant hardware noted due to multiple rib fractures. Chronic changes noted. There is a difference in appearance to prior because of underpenetration. Impressions Chest X-Ray 05/09/20 17:50 IMPRESSION: Increased interstitial markings may represent edema and/or infection. Electronically Signed: Eric Martinez MD at 18:53 EDT Tel , Service support , Chest CTA 05/09/20 18:32 IMPRESSION: 1. No evidence of pulmonary embolus. 2. No aortic dissection or aneurysm. 3. Bilateral pleural effusions and atelectasis not previously noted. 4. Vague ground glass infiltrates in right middle lobe not previously noted. 5. Otherwise stable findings. Electronically Signed: Henrry Baron DO at 19:45 EDT Tel [phone], Service support , 05/09/20 17:50 Chest 1 View (Portable) [RAD] Stat 05/09/20 18:32 CTA Chest W/WO Contrast [CT] Stat Laboratory Results 05/09/20 05/09/20 05/09/20 17:45 17:45 17:45 WBC 6.6 RBC 4.04 L Hgb 10.2 L Hct 35.3 L MCV 87.4 MCH 25.2 L MCHC 28.9 L RDW Std Deviation 51.9 H RDW Coeff of Cinda 16.1 H Plt Count 217 MPV 10.2 Immature Gran % (Auto) 0.300 Neut % (Auto) 75.6 H Lymph % (Auto) 15.7 L Nye % (Auto) 6.7 Eos % (Auto) 1.5 Baso % (Auto) 0.2 Absolute Neuts (auto) 5.0 Absolute Lymphs (auto) 1.03 Nucleated RBC % 0 PT 15.1 H INR 1.3 APTT 36.0 D-Dimer Quant (PE/DVT) 3.37 H* Sodium 138 Potassium 3.8 Chloride 99 Carbon Dioxide 33.0 H Anion Gap 6 BUN 20 H Creatinine 0.91 Estim Creat Clear Calc 79.11 Est GFR (MDRD) Af Amer 106 Est GFR (MDRD) Non-Af 88 BUN/Creatinine Ratio 22.0 H Glucose 239 H Lactic Acid Calcium 8.4 L Troponin I < 0.015 05/09/20 17:56 WBC RBC Hgb Hct MCV MCH MCHC RDW Std Deviation RDW Coeff of Cinda Plt Count MPV Immature Gran % (Auto) Neut % (Auto) Lymph % (Auto) Nye % (Auto) Eos % (Auto) Baso % (Auto) Absolute Neuts (auto) Absolute Lymphs (auto) Nucleated RBC % PT INR APTT D-Dimer Quant (PE/DVT) Sodium Potassium Chloride Carbon Dioxide Anion Gap BUN Creatinine Estim Creat Clear Calc Est GFR (MDRD) Af Amer Est GFR (MDRD) Non-Af BUN/Creatinine Ratio Glucose Lactic Acid 3.0 H* Calcium Troponin I Count is normal. Patient is anemic. D-dimer is elevated 3.37. Lactate elevated 3.0. This may be due to the respiratory arrest. The chest x-ray reveals no definite infiltrate. Because of the elevated D-dimer CTA was obtained to rule out pulmonary embolus especially since he was a significant trauma and has prior history of pulmonary embolus. The CT reveals an infiltrate and bilateral pleural effusions which is new from prior study. Since patient's lactate is elevated he has severe sepsis. Blood cultures were ordered and antibiotics were initiated. Will page hospitalist for admission. - EKG Initial EKG Interpretation: Sinus Rhythm - Normal sinus rhythm with a ventricular rate 82. DE interval is 184 ms. QRS duration 114 ms. QT duration 378 ms. [place] is normal. There is motion artifact noted. - Medical Decision Making With history of recent significant trauma respiratory distress with syncope need to evaluate for pulmonary embolus. D-dimer was ordered. Chest x-ray was ordered to rule out pneumothorax, pleural effusion pneumonia. EKG to rule out cardiac ischemia. Appropriate blood work to assess renal function as well as white count and H&H to rule out anemia. Lactate is elevated 3. D-dimer is elevated even after correction for age. CTA of the chest was ordered to assess for pulmonary embolus. Patient has not been vaccinated for Covid. He refuses. Will obtain Covid test. - Critical Care Time Critical care time (excluding procedures): 30-74 minutes - Total time 34 minutes. 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
--- NOTE | 2020-05-09 20:44 | PCM.HP.STD ---
Problem List (1) Severe sepsis Status: Acute (2) Right middle lobe pneumonia Status: Acute Qualifiers: Pneumonia type: due to unspecified organism Qualified Code(s): J18.9 - Pneumonia, unspecified organism (3) Acute on chronic respiratory failure Status: Acute Qualifiers: Respiratory failure complication: hypoxia Qualified Code(s): J96.21 - Acute and chronic respiratory failure with hypoxia (4) Syncope and collapse Status: Acute (5) CAD (coronary artery disease) Status: Chronic Qualifiers: Coronary Disease-Associated Artery/Lesion type: [place] artery [place] vs. 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 transplanted heart: unspecified whether [place] cross or transplanted heart Qualified Code(s): I25.119 - Atherosclerotic heart disease of [place] coronary artery with unspecified angina pectoris Comment: Cardiac catheterization 02/24/2017?normal LV size should not, EF 55%, [place] multivessel CAD, patent SVG to diagonal 1, OM 2, and RCA, MASON to LAD previously reported as atretic/nonfunctional (not reevaluated at that time), advised medical therapy (7) History of coronary artery stent placement Status: Resolved Comment: Previously placed stent has an instent 85 % restenosis followed by subtotal occlusion per [facility] 02/2017 (8) H/O coronary artery bypass surgery Status: Resolved Comment: CABG x 4 MASON-LAD, SVG-D1, SVG-OM2, SVG-RCA (9) Essential (primary) hypertension Status: Chronic (10) EKATERINA (obstructive sleep apnea) Status: Chronic (11) Hyperlipidemia Status: Chronic Qualifiers: Hyperlipidemia type: unspecified Qualified Code(s): E78.5 - Hyperlipidemia, unspecified (12) Obesity Status: Chronic Qualifiers: Obesity type: due to excess calories Obesity classification: adult class 1 (BMI 30 - 34.9) Serious obesity comorbidity presence: unspecified whether serious comorbidity present Body mass index: BMI 34.0-34.9 Qualified Code(s): E66.09 - Other obesity due to excess calories; Z68.34 - Body mass index [BMI] 34.0-34.9, adult (13) Chronic respiratory failure Status: Chronic Qualifiers: Respiratory failure complication: unspecified whether with hypoxia or hypercapnia Qualified Code(s): J96.10 - Chronic respiratory failure, unspecified whether with hypoxia or hypercapnia Comment: baseline 3L continuously (14) DM type 2 (diabetes mellitus, type 2) Status: Chronic Qualifiers: Diabetes mellitus tank terminal gauger insulin use: with fci use Diabetes mellitus complication status: with other specified complication Qualified Code(s): E11.69 - Type 2 diabetes mellitus with other specified complication; Z79.4 - MCC (current) use of insulin (15) Seizure Status: Chronic Qualifiers: Convulsion type: unspecified Qualified Code(s): R56.9 - Unspecified convulsions (16) Aphasia Status: Chronic (17) CVA (cerebral vascular accident) Status: Chronic Qualifiers: CVA mechanism: unspecified Qualified Code(s): I63.9 - Cerebral infarction, unspecified Comment: Residual left-sided weakness History of Present Illness Date of Admission: 05/09/20 Chief Complaint: Dyspnea, respiratory failure, cough. The patient is a 69 y/o M w/ PMHx: Hx CVA w/ chronic aphasia, Obesity, EKATERINA, CAD s/p CABG x 4 MASON-LAD, SVG-D1, SVG-OM1, SVG-RCA and PCI, HTN, HLD, Hx Trauma with significant Lung trauma 01/2020 including flail chest per report w/ Chronic Hypoxic Respiratory Failure on 3L NC, Hx PE, Seizure disorder, GERD, BPH, CHF Unclear type, Diabetes mellitus type II who presents to the [facility] ED on 05/09/20 with history of ongoing cough with productive sputum and dyspnea starting ~2-3 days prior, worse on day of ED presentation with while in the ED in triage significant episode of unresponsiveness noted to be gasping for air with CODE BLUE call with cyanotic appearance, unresponsive per report with history of recent lower extremity swelling with no recent fever, chills, emesis, diarrhea, alteration to stool color. Patient in the ED holding emesis bag which he notes is secondary to thick sputum associated nausea if unable to cough up. Work-up in the ED included T 98.1, heart rate 67, BP 184/77, respiratory rate 28, 95% on 3 L nasal cannula, CBC with WBC 6.6, hemoglobin 10.2, MCV 87.4, platelet 217 without marked shift, coags with PT 15.1, INR 1.3, PTT 36, D-dimer 3.37, BMP with BUN/creatinine 6/20, carbon oxide 33, glucose 239, lactic acid 3.0, troponin less than 0.015, chest x-ray with increased interstitial markings possibly edema and/or infection, follow-up CTPA with no evidence of PE or aortic dissection or aneurysm, bilateral pleural effusions and end of elective cyst, vague ground-glass infiltrates in the right middle lobe, EKG with sinus rhythm with no acute evidence of ischemia. COVID testing pending upon admission per ED. In the ED patient ministered Rocephin and azithromycin therapy. Past Medical History Past Medical History (Chronic Problems): Chronic Problems (Last Reviewed 04/09/20 @ 00:[address] Carlos Alberto Fermin MD) CAD (coronary artery disease) (Chronic) UTI (urinary tract infection) (Chronic) Hypokalemia (Chronic) History of permanent cardiac pacemaker placement (Chronic 09/10/11) 2001 Atherosclerotic heart disease [place] coronary artery w/angina pectoris (Chronic) Cardiac catheterization 02/24/2017?normal LV size should not, EF 55%, [place] multivessel CAD, patent SVG to diagonal 1, OM 2, and RCA, MASON to LAD previously reported as atretic/nonfunctional (not reevaluated at that time), advised medical therapy Essential (primary) hypertension (Chronic) CONI (acute kidney injury) (Chronic) EKATERINA (obstructive sleep apnea) (Chronic) Chest wall contusion (Chronic) Atypical chest pain (Chronic) Left-sided weakness (Chronic) Hyperlipidemia (Chronic) Obesity (Chronic) Chronic respiratory failure (Chronic) baseline 3L continuously DM type 2 (diabetes mellitus, type 2) (Chronic) Obstructive sleep apnea (Chronic) Seizure (Chronic) Aphasia (Chronic) CVA (cerebral vascular accident) (Chronic) Residual left-sided weakness Medical History: Medical History (Last Reviewed 04/09/20 @ 00:[address] Carlos Alberto Fermin MD) Atherosclerotic heart disease [place] coronary artery w/angina pectoris (Chronic) I25.119 Cardiac catheterization 02/24/2017?normal LV size should not, EF 55%, [place] multivessel CAD, patent SVG to diagonal 1, OM 2, and RCA, MASON to LAD previously reported as atretic/nonfunctional (not reevaluated at that time), advised medical therapy Essential (primary) hypertension (Chronic) I10 Chest pain (Inactive) R07.9 CONI (acute kidney injury) (Chronic) N17.9 EKATERINA (obstructive sleep apnea) (Chronic) G47.33 Abnormal EKG (Acute) R94.31 Chest wall contusion (Chronic) S20.219A Atypical chest pain (Chronic) R07.89 Left-sided weakness (Chronic) R53.1 Hyperlipidemia (Chronic) E78.5 Obesity (Chronic) E66.9 Chronic respiratory failure (Chronic) J96.10 baseline 3L continuously Allergies ezetimibe Allergy (Verified 05/09/20 17:34) Unknown Fish Containing Products Allergy (Verified 05/09/20 17:34) Unknown glyburide Allergy (Verified 05/09/20 17:34) Unknown isosorbide Allergy (Verified 05/09/20 17:34) PT UNSURE OF REACTION lisinopril Allergy (Verified 05/09/20 17:34) Unknown metformin Allergy (Verified 05/09/20 17:34) Nausea metoprolol Allergy (Verified 05/09/20 17:34) Unknown simvastatin Allergy (Verified 05/09/20 17:34) Unknown Home Medications: Ambulatory Orders Medication Instructions Recorded Aspirin E.C. [Ecotrin] 81 mg PO DAILY@0800 06/11/18 Atorvastatin Calcium [Lipitor] 80 mg PO QHS 06/11/18 Cholecalciferol (VIT D3) [Vitamin 3,000 units PO DAILY 06/11/18 D3] Clopidogrel Bisulfate [Clopidogrel] 75 mg PO DAILY 06/11/18 Escitalopram Oxalate [Lexapro] 10 mg PO DAILY 06/11/18 Finasteride [Proscar] 5 mg PO DAILY 06/11/18 Furosemide [Lasix] 20 mg PO DAILY 06/11/18 Insulin Regular, Human [Humulin R 195 unit SQ BREAKFAST 06/11/18 U-500 Kwikpen] Insulin Regular, Human [Humulin R 195 unit SQ DINNER 06/11/18 U-500 Kwikpen] Multivitamins,Ther W-Minerals 1 tablet PO DAILY 06/11/18 [Multivitamin With Minerals (BKC)] Pantoprazole Sodium 40 mg PO BIDCM 06/11/18 Acetaminophen [Tylenol Tablet] 650 mg PO Q6H PRN PRN tablet 06/21/18 Nitroglycerin (INPATIENT USE) 0.4 mg SUBLINGUAL Q5M PRN #30 07/22/18 [Nitrostat] tablet Carvedilol [Coreg] 18.75 mg PO BID 12/03/18 Diclofenac Sodium [Diclo Gel] 4 gm TP BID PRN PRN 11/08/19 Guaifenesin 10 ml PO TID PRN PRN 11/08/19 Ketoconazole [Nizoral] 1 applicatio TP DAILY 11/08/19 Albuterol Inhaler [Ventolin Hfa] 1 puff INHALATION Q6H PRN PRN 04/08/20 Gabapentin [Neurontin] 300 mg PO BID 04/08/20 Potassium Chloride [Klor-Con M20] 20 meq PO DAILY 04/08/20 levETIRAcetam tablet [Keppra 1,000 mg PO BID 04/08/20 tablet] Ranolazine [Ranexa] 500 mg PO BID #0 04/10/20 Tamsulosin HCl [Flomax] 0.4 mg PO QHS #30 cap 04/10/20 Surgical History: Surgical History (Last Reviewed 04/09/20 @ 00:[address] Carlos Alberto Fermin MD) History of permanent cardiac pacemaker placement (Chronic) Onset Date: 09/10/11 Z95.0 2001 History of coronary artery stent placement (Resolved) Z95.5 Previously placed stent has an instent 85 % restenosis followed by subtotal occlusion per [facility] 02/2017 H/O coronary artery bypass surgery (Resolved) Z95.1 CABG x 4 MASON-LAD, SVG-D1, SVG-OM2, SVG-RCA Surgical History: angioplasty, coronary bypass surgery, pacemaker implantation, - - CABG x 4 and PCI, Cholecystectemy, appendectomy, Hernia repair, L knee, recent trauma with ? Thoracic surgery for flailed chest, pacemaker placement. Psychiatric History: Anxiety, Depression Lives: Spouse/ Significant Other Smoking Status: Former smoker - Patient notes quitting 6 tobacco usage in 2006 with prior to this 3 pack/day since he was a kid. Tobacco Use: Non-smoker Alcohol: None Drugs: None - *Family History Maternal History Items: Diabetes, High Cholesterol, Heart Disease, Hypertension Paternal History Items: Cancer, - Review of Systems Constitutional: Reports: Anorexia, Malaise, Weakness, Fatigue. Denies: Chills, Fever, Weight Change HEENT: Denies: Head Aches, Sinus Congestion, Sinus Drainage Cardiovascular: Denies: Chest Pain, Palpitations Respiratory: Reports: Cough, Shortness of Breath, Shortness of breath upon exertion, Sputum production. Denies: Shortness of breath at rest, Wheezing Gastrointestinal: Reports: Nausea. Denies: Abdominal Pain, Vomiting Genitourinary: Denies: Dysuria Musculoskeletal: Reports: Back Pain, Joint Pain. Denies: Joint Tenderness Skin: Denies: Rash, Wounds Neurological: Denies: Numbness, Tingling, Focal weakness Psychiatric: Reports: Anxiety, Depression. Denies: Homicidal Ideations, Suicidal Ideations Hematologic/ Lymphatic: Reports: Anemia, Easy Bruising, Easy Bleeding VTE Information - Inpt Only VTE Present on Admission: No VTE Mechan Device Prophylaxis: SCD's VTE Pharm Prophylaxis ordered?: Yes Patient Problems: Active and Suspected Problems (Last Reviewed 04/09/20 @ 00:[address] Carlos Alberto Fermin MD) Syncope and collapse (Acute) Severe sepsis (Acute) Right middle lobe pneumonia (Acute) Respiratory failure (Acute) Subjective: Patient seated upright in the ED bed, fatigued appearance, coughing during evaluation, definite productive. Objective: Physical Examination: General: awake, alert, oriented x 3 and cooperative, seated upright in the ED bed in no apparent distress, improved, fatigued appearance. Skin: normal color, turgor, no icterus, cyanosis except noted bilateral lower extremity stasis disease. HEENT: AT/NC, EOMI, PERRLA, dry MM, no carotid bruits or JVD noted; however thickened neck makes examination difficult. Lungs: Bilaterally coarse, diminished, greater bilateral bases, coughing with productive sputum during evaluation, no obvious rales or specific wheezing, currently effort improved, had been in significant distress with unresponsive event with cyanotic lips which is since resolved. Heart: Regular rate and rhythm; no gallop, rub audible. Abdomen: soft, obese, NTTP, ND, normal BS, no HSM. Extremities: no cyanosis or clubbing, bilateral lower extremity stasis disease with edema, nonpitting. Neurological: patient awake, alert, oriented as noted; cognitive function improved from recent unresponsive event, currently baseline intact; pupils equally reactive to light and accomodation; cranial nerves II-XII grossly normal, moving all 4 extremities, no focal deficits, strength severely global decrease secondary to acute presentation. Psychiatric: affect appears fatigued, currently improved, normal, no acute evidence of depressive or anxiety feelings. - Physical Exam Vitals/I&O's: Vital Signs Temp Pulse Resp BP Pulse Ox 98.2 F 67 28 H 146/58 H 95 05/09/20 18:39 05/09/20 18:39 05/09/20 18:39 05/09/20 18:39 05/09/20 18:39 Oxygen Flow Rate (L/min) 3 Oxygen Delivery Method Nasal Cannula Weight: 243 lb Body Mass Index (BMI) 34.8 Finger Stick Blood Glucose 284 Laboratory Results 05/09/20 17:45: WBC 6.6, RBC 4.04 L, Hgb 10.2 L, Hct 35.3 L, MCV 87.4, MCH 25.2 L, MCHC 28.9 L, RDW Std Deviation 51.9 H, RDW Coeff of Cinda 16.1 H, Plt Count 217, MPV 10.2, Immature Gran % (Auto) 0.300, Neut % (Auto) 75.6 H, Lymph % (Auto) 15.7 L, Tripp % (Auto) 6.7, Eos % (Auto) 1.5, Baso % (Auto) 0.2, Absolute Neuts (auto) 5.0, Absolute Lymphs (auto) 1.03, Nucleated RBC % 0 05/09/20 17:45: PT 15.1 H, INR 1.3, APTT 36.0, D-Dimer Quant (PE/DVT) 3.37 H* 05/09/20 17:45: Sodium 138, Potassium 3.8, Chloride 99, Carbon Dioxide 33.0 H, Anion Gap 6, BUN 20 H, Creatinine 0.91, Estim Creat Clear Calc 79.11, Est GFR (MDRD) Af Amer 106, Est GFR (MDRD) Non-Af 88, BUN/Creatinine Ratio 22.0 H, Glucose 239 H, Calcium 8.4 L, Troponin I < 0.015 05/09/20 17:56: Lactic Acid 3.0 H* Current Medications Ceftriaxone Sodium 2 gm/ (Sodium Chloride) 50 mls @ 100 mls/hr IV X1 ONE Stop: 05/09/20 21:02 Azithromycin 500 mg/ Dextrose 255 mls @ 250 mls/hr IV X1 ONE Stop: 05/09/20 21:34 Assessment/Plan All Active Problems (Last Reviewed 04/09/20 @ 00:[address] Carlos Alberto Fermin MD) Syncope and collapse (Acute) Acute electrocardiogram changes (Acute) Severe sepsis (Acute) Right middle lobe pneumonia (Acute) Respiratory failure (Acute) Acute on chronic respiratory failure (Acute) History of coronary artery stent placement (Resolved) H/O coronary artery bypass surgery (Resolved) Abnormal EKG (Acute) The patient is a 69 y/o M w/ PMHx: Hx CVA w/ chronic aphasia, Obesity, EKATERINA, CAD s/p CABG x 4 MASON-LAD, SVG-D1, SVG-OM1, SVG-RCA and PCI, HTN, HLD, Hx Trauma with significant Lung trauma 01/2020 including flail chest per report w/ Chronic Hypoxic Respiratory Failure on 3L NC, Hx PE, Seizure disorder, GERD, BPH, CHF Unclear type, Diabetes mellitus type II who presents to the [facility] ED on 05/09/20 with history of ongoing cough with productive sputum and dyspnea starting ~2-3 days prior, worse on day of ED presentation with while in the ED in triage significant episode of unresponsiveness noted to be gasping for air with CODE BLUE call with cyanotic appearance, unresponsive per report with history of recent lower extremity swelling with no recent fever, chills. 1. Acute Severe Sepsis secondary to Acute RML Pneumonia with BL Pleural effusions with associated Syncopal event with Acute on Chronic hypoxic Respiratory Failure: Will admit to ICU, O2 supplementation NC w/ wean as tolerated to home oxygen supplementation, continue ATC duonebs, PRN albuterol, maintained on IV Vanc and Zosyn given late 02/04 admission which was notable prolonged pending further results with de-escalation as able with MRSA screen requested, obtain ICU consultation per protocol, HOB, IS parameters w/ pending sputum cultures and urine antigens, respiratory viral panel, rapid covid antigen negative. Will maintain on telemetry, check his device, cycle cardiac enzymes and repeat EKG to be cautious given presentation history concurrently. Bld cx x 2 obtained in the ED. Awaiting Covid testing per ED, if positive will alter course expectedly. 2. CAD: Patient status post PCI and CABG x4 history with MASON to LAD, SVG to D1, SVG to OM1, SVG to RCA, we will continue patient home aspirin, Plavix, statin, Coreg with hold parameters as needed. 3. Significant trauma with chronic hypoxia respiratory failure, seizure disorder: We will continue patient oxygen supplementation with additional as needed, wean as tolerated to 3 L nasal cannula home regimen, maintain on Keppra regimen. 4. Chronic normocytic anemia: Admission hemoglobin 10.2, baseline prior 9-11, stable, trend. 5. CHF, presumed diastolic w/ ? cardiomyopathy: 04/08/20 ECHO w/ EF 55%, normal LV size, LV systolic function normal, ICD/pacer leads identified within the RV, mild TVI, PASP 30 mmHg. 03/12/2019 stress testing unremarkable at that time. We will continue patient home aspirin, Plavix, statin, Coreg, Lasix regimen as well as Ranexa as noted. 6. Hypertension: Continue home regimen including Coreg, Lasix with hold parameters, PRN hydralazine. 7. Hyperlipidemia: Continue home statin regimen. 8. Obesity: Weight loss and lifestyle changes encouraged. 9. Diabetes mellitus type II with neuropathy: Hold oral home regimen, continue home insulin regimen once clarified, ADA diet, accu checks w/ ISS, continue patient home gabapentin regimen. 10. BPH: We will continue home Flomax regimen. 11. GERD: We will continue patient home PPI. 12. Anxiety and depression: We will continue patient home Lexapro regimen. 13. EKATERINA: We will continue patient home BiPAP nightly. 14. Hx CVA w/ chronic aphasia: Will continue aspirin, Plavix, hypertensive regimen, statin therapy, diabetic regimen although awaiting clarification on insulin. 15. DVT prophylaxis: SCDs, Lovenox. 16. CODE status: Patient BERTA is his he notes and living will is currently in place. Discussed CODE status at length including difference between FULL code, DNR-CCA and DNR-CC status. Following discussions about the differences in these status, requested Full Code status. Advanced Care Planning Face to Face Time: 16 minutes. Inpatient E&M: 06962 Init Hosp L3 Procedures: 02714 Advncd Care Plan 30 Min
--- NOTE | 2020-05-09 21:17 | ED.RN ---
PT DOES NOT KNOW HOME MEDICATIONS. STATES HIS HAS A LIST AT HOME. RECENTLY [facility].
[2020-05-09 22:02] LABS: Reflex Lactate? Y
[2020-05-09] MEDS: 0.9% Normal Saline 1,000 ML 125 ML IV (23:07)
[2020-05-09] MEDS: 0.9% Normal Saline 1,000 ML 999 ML IV (23:07)
[2020-05-09] MEDS: Ipratropium/Albuterol Sulfate 3 ML AMPUL.NEB INHALATION (23:07)
[2020-05-09] MEDS: Gabapentin 300 MG Capsule PO (23:12)
[2020-05-09] MEDS: levETIRAcetam 500 MG Tablet 1000 MG PO (23:13)
[2020-05-09] MEDS: Carvedilol 12.5 MG Tablet 18.75 MG PO (23:13)
[2020-05-09] MEDS: Tamsulosin HCl 0.4 MG Capsule PO (23:14)
[2020-05-09] MEDS: Ranolazine 500 MG Tablet PO (23:15)
[2020-05-09] MEDS: 0.9% Saline Lock 10 ML Syringe IV (23:15)
[2020-05-09] MEDS: Famotidine 20 MG Tablet PO (23:15)
[2020-05-09] MEDS: Insulin Lispro 100 UNIT/ML INSULN.PEN SC (23:20)
[2020-05-09] MEDS: Acetaminophen 325 MG Tablet 650 MG PO (23:20)
[2020-05-09 23:21] LABS: Bedside Glucose 227 mg/dL (70-110)
--- NOTE | 2020-05-09 23:34 | PCM.RX.CS ---
Consult Pharmacy has been consulted to manage selected antiobiotic: Vancomycin Type of Consult: New start Suspected Infection: Sepsis, Pneumonia Labs: Sodium 138 mmol/L (136-145) 05/09/20 17:45 Potassium 3.8 mmol/L (3.5-5.1) 05/09/20 17:45 Chloride 99 mmol/L (98-107) 05/09/20 17:45 Carbon Dioxide 33.0 mmol/L (21.0-32.0) H 05/09/20 17:45 Anion Gap 6 (5-15) 05/09/20 17:45 BUN 20 mg/dL (7-18) H 05/09/20 17:45 Creatinine 0.91 mg/dL (0.70-1.30) 05/09/20 17:45 Est GFR (MDRD) Af Amer 106 mL/min (>60) 05/09/20 17:45 Est GFR (MDRD) Non-Af 88 mL/min (>60) 05/09/20 17:45 BUN/Creatinine Ratio 22.0 RATIO (10-20) H 05/09/20 17:45 Glucose 239 mg/dL (74-106) H 05/09/20 17:45 Microbiology: Microbiology 05/09/20 21:05 Mucosa - Nose SARS-CoV-2 Antigen (Rapid) - Final Weight used for dosin kg Estimated Creatinine Clearance: 95.14 Goal Trough: 15-20 mcg/mL Pharmacy Plan for Drug Dosing: Pharmacy Service will continue to monitor and adjust dosing as required. Medications Vancomycin HCl 2,000 mg/ (Sodium Chloride) 540 mls @ 250 mls/hr IV X1 ONE Stop: 05/10/20 00:09 Last Admin: 05/09/20 23:08 Dose: 250 mls/hr Documented by: Vancomycin HCl 1,250 mg/ (Sodium Chloride) 275 mls @ 167 mls/hr IV Q8H ALEXUS Follow-Up Labs: Trough Vancomycin Labs to be done on [date and time ordered]: 05/10 @ 2411
[2020-05-09 23:39] LABS: Magnesium 1.5 mg/dL (1.6-2.6)
[2020-05-09 23:41] LABS: Lactic Acid 1.6 mmol/L (0.4-1.9)
[2020-05-10] VITALS (25 sets, daily range): BP systolic 99–154; BP diastolic 40–81; PULSE 59–81; RESP 12–25; TEMP 36.2–37.1; O2SAT 94–100
[2020-05-10 00:41] LABS: M R Staph aureus DNA By PCR Negative (Negative); Probe Check PASS; Specimen Processing Control PASS
[2020-05-10 01:08] LABS: Procalcitonin < 0.04 ng/mL (0.00-0.09)
[2020-05-10 02:35] LABS: Absolute Lymphocyte Count 0.97 X10^3/uL (0.83-4.51); Absolute Neutrophil Count 4.2 X10^3/uL (2.0-7.7); Eosinophil# 0.09 X10^3/uL; Eosinophils% 1.6 % (0-5); Hematocrit 28.3 % (40-54); Hemoglobin 8.3 g/dL (13.0-16.5); Lymphocyte # 0.97 X10^3/ul (4.0); Lymphocyte % 16.9 % (19-41); Mean Corp Hgb Conc 29.3 g/dL (32-36); Mean Corpuscular Hgb 25.5 pg (27.0-32.0); Mean Corpuscular Volume 86.8 fL (80-94); Mean Platelet Vol. 10.6 fl (6.2-12.0); Monocyte# 0.43 X10^3/uL; Monocyte% 7.5 % (0-10); NRBC Flagged by Analyzer 0 % (0-5); Neutrophil # 4.24 X10^3/uL (2.7-7.7); Neutrophil % 73.8 % (47-70); Platelet Count 165 K/mm3 (150-450); RBC Distribution Width CV 16.2 % (11.6-14.6); RBC Distribution Width SD 51.4 fl (35.1-43.9); Red Blood Count 3.26 M/mm3 (4.6-6.2); White Blood Count 5.7 K/mm3 (4.4-11.0)
[2020-05-10 02:49] LABS: ALB/GLOB Ratio 0.7 RATIO (0.9-2.4); AST(SGOT) 9 U/L (15-37); Alanine Aminotransfer ALT/SGPT 17 U/L (16-61); Albumin, Serum 2.7 g/dL (3.2-5.0); Alkaline Phosphatase 119 U/L (45-117); Anion Gap 4 (5-15); BUN 18 mg/dL (7-18); BUN/Creat Ratio 29.8 RATIO (10-20); Calcium,Total 7.7 mg/dL (8.5-10.1); Chloride 102 mmol/L (98-107); EST Glomerular Filtration Rate 140 mL/min (>60); Est Glom Filt Rate - Afr Amer 170 mL/min (>60); Estimated Creatinine Clearance 71.99 ml/min; Globulin 3.7 g/dL (2.2-4.2); Glucose 151 mg/dL (74-106); Potassium 3.4 mmol/L (3.5-5.1); Protein, Total 6.4 g/dL (6.4-8.2); Sodium Level 140 mmol/L (136-145)
[2020-05-10 05:26] LABS: Bedside Glucose 129 mg/dL (70-110)
--- NOTE | 2020-05-10 05:32 | CON.PCM_ITS ---
Reason for Consult Date of Consultation: 05/10/20 Reason for Consultation: Respiratory failure History of Present Illness: The patient is a 69-year-old male, with a history as outlined below, who presented to the emergency department on May 09 with complaints of worsening shortness of breath and nonproductive cough of 2 to 3 days duration. The patient does have an apparent history of COPD of unknown severity along with a prior tobacco abuse history, having quit completely in 2006. 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 He does report that he utilizes 3 L/min of supplemental oxygen at his baseline. In addition, the patient has a known history of obstructive sleep apnea, coronary artery disease status post CABG and permanent pacemaker placement. On presentation to the emergency department, the patient was noted to be afebrile and hemodynamically stable. Laboratory evaluation revealed a normal white blood cell count. D-dimer was elevated to 3.37. Chemistry profile was notable for a bicarbonate of 33 and creatinine of 0.91. Lactate was elevated at 3.0. Magnesium was low at 1.5. Troponin was unremarkable. Procalcitonin was normal. MRSA screen was negative. CTA chest showed no evidence for pulmonary embolism. Bilateral pleural effusions with subsegmental atelectasis was noted. The groundglass infiltrates were noted in the right middle lobe. Rapid coronavirus antigen testing was negative. Respiratory viral panel was negative. Of note, the patient was documented to have a syncopal event in the emergency department. The patient was subsequently admitted to the medical intensive care unit after being started on antimicrobials in the emergency department. Past Medical History Past Medical History (Chronic Problems): Chronic Problems (Last Reviewed 04/09/20 @ 00:[address] Carlos Alberto Fermin MD) CAD (coronary artery disease) (Chronic) UTI (urinary tract infection) (Chronic) Hypokalemia (Chronic) History of permanent cardiac pacemaker placement (Chronic 09/10/11) 2001 Atherosclerotic heart disease [place] coronary artery w/angina pectoris (Chronic) Cardiac catheterization 02/24/2017?normal LV size should not, EF 55%, [place] multivessel CAD, patent SVG to diagonal 1, OM 2, and RCA, MASON to LAD previously reported as atretic/nonfunctional (not reevaluated at that time), advised medical therapy Essential (primary) hypertension (Chronic) CONI (acute kidney injury) (Chronic) EKATERINA (obstructive sleep apnea) (Chronic) Chest wall contusion (Chronic) Atypical chest pain (Chronic) Left-sided weakness (Chronic) Hyperlipidemia (Chronic) Obesity (Chronic) Chronic respiratory failure (Chronic) baseline 3L continuously DM type 2 (diabetes mellitus, type 2) (Chronic) Obstructive sleep apnea (Chronic) Seizure (Chronic) Aphasia (Chronic) CVA (cerebral vascular accident) (Chronic) Residual left-sided weakness Medical History: Medical History (Last Reviewed 04/09/20 @ 00:[address] Carlos Alberto Fermin MD) Atherosclerotic heart disease [place] coronary artery w/angina pectoris (Chronic) I25.119 Cardiac catheterization 02/24/2017?normal LV size should not, EF 55%, [place] multivessel CAD, patent SVG to diagonal 1, OM 2, and RCA, MASON to LAD previously reported as atretic/nonfunctional (not reevaluated at that time), advised medical therapy Essential (primary) hypertension (Chronic) I10 Chest pain (Inactive) R07.9 CONI (acute kidney injury) (Chronic) N17.9 EKATERINA (obstructive sleep apnea) (Chronic) G47.33 Abnormal EKG (Acute) R94.31 Chest wall contusion (Chronic) S20.219A Atypical chest pain (Chronic) R07.89 Left-sided weakness (Chronic) R53.1 Hyperlipidemia (Chronic) E78.5 Obesity (Chronic) E66.9 Chronic respiratory failure (Chronic) J96.10 baseline 3L continuously Allergies ezetimibe Allergy (Verified 05/09/20 17:34) Unknown Fish Containing Products Allergy (Verified 05/09/20 17:34) Unknown glyburide Allergy (Verified 05/09/20 17:34) Unknown isosorbide Allergy (Verified 05/09/20 17:34) PT UNSURE OF REACTION lisinopril Allergy (Verified 05/09/20 17:34) Unknown metformin Allergy (Verified 05/09/20 17:34) Nausea metoprolol Allergy (Verified 05/09/20 17:34) Unknown simvastatin Allergy (Verified 05/09/20 17:34) Unknown Home Medications: Ambulatory Orders Medication Instructions Recorded Aspirin E.C. [Ecotrin] 81 mg PO DAILY@0800 06/11/18 Atorvastatin Calcium [Lipitor] 80 mg PO QHS 06/11/18 Cholecalciferol (VIT D3) [Vitamin 3,000 units PO DAILY 06/11/18 D3] Clopidogrel Bisulfate [Clopidogrel] 75 mg PO DAILY 06/11/18 Escitalopram Oxalate [Lexapro] 10 mg PO DAILY 06/11/18 Finasteride [Proscar] 5 mg PO DAILY 06/11/18 Furosemide [Lasix] 40 mg PO DAILY 06/11/18 Insulin Regular, Human [Humulin R 110 unit SQ BREAKFAST 06/11/18 U-500 Kwikpen] Insulin Regular, Human [Humulin R 110 unit SQ QHS 06/11/18 U-500 Kwikpen] Multivitamins,Ther W-Minerals 1 tablet PO DAILY 06/11/18 [Multivitamin With Minerals (BKC)] Pantoprazole Sodium 40 mg PO BIDCM 06/11/18 Acetaminophen [Tylenol Tablet] 650 mg PO Q6H PRN PRN tablet 06/21/18 Nitroglycerin (INPATIENT USE) 0.4 mg SUBLINGUAL Q5M PRN #30 07/22/18 [Nitrostat] tablet Carvedilol [Coreg] 50 mg PO BID 12/03/18 Diclofenac Sodium [Diclo Gel] 4 gm TP BID PRN PRN 11/08/19 Guaifenesin 10 ml PO TID PRN PRN 11/08/19 Ketoconazole [Nizoral] 1 applicatio TP DAILY 11/08/19 Albuterol Inhaler [Ventolin Hfa] 1 - 2 puff INHALATION 4X/DAY PRN 04/08/20 PRN Potassium Chloride [Klor-Con M20] 20 meq PO DAILY 04/08/20 Ranolazine [Ranexa] 500 mg PO BID #0 04/10/20 Tamsulosin HCl [Flomax] 0.4 mg PO QHS #30 cap 04/10/20 Surgical History: Surgical History (Last Reviewed 04/09/20 @ 00:[address] Carlos Alberto Fermin MD) History of permanent cardiac pacemaker placement (Chronic) Onset Date: 09/10/11 Z95.0 2001 History of coronary artery stent placement (Resolved) Z95.5 Previously placed stent has an instent 85 % restenosis followed by subtotal occlusion per [facility] 02/2017 H/O coronary artery bypass surgery (Resolved) Z95.1 CABG x 4 [place]-LAD, SVG-D1, SVG-OM2, SVG-RCA Surgical History: angioplasty, coronary bypass surgery, pacemaker implantation, - - CABG x 4 and PCI, Cholecystectemy, appendectomy, Hernia repair, L knee, recent trauma with ? Thoracic surgery for flailed chest, pacemaker placement. Psychiatric History: Anxiety, Depression Lives: Spouse/ Significant Other Smoking Status: Former smoker Tobacco Use: Non-smoker Alcohol: None Drugs: None - *Family History Maternal History Items: Diabetes, High Cholesterol, Heart Disease, Hypertension Paternal History Items: Cancer, - Review of Systems Constitutional: Denies: Chills, Fever, Weight Change HEENT: Reports: Difficulty Hearing Cardiovascular: Reports: Syncope Respiratory: Reports: Cough, Shortness of Breath. Denies: Sputum production Gastrointestinal: Denies: Abdominal Pain, Nausea, Vomiting Genitourinary: Denies: Dysuria Musculoskeletal: Denies: Joint Pain, Joint Tenderness Skin: Denies: Rash, Wounds Neurological: Denies: Numbness, Tingling, Focal weakness Psychiatric: Denies: Anxiety, Depression, Homicidal Ideations, Suicidal Ideat ions Hematologic/ Lymphatic: Reports: Anemia Patient Problems: Active and Suspected Problems (Last Reviewed 04/09/20 @ 00:[address] Carlos Alberto Fermin MD) Syncope and collapse (Acute) Severe sepsis (Acute) Right middle lobe pneumonia (Acute) Respiratory failure (Acute) Acute on chronic respiratory failure (Acute) Objective: The patient's most recent lab work, culture data and imaging studies have all been personally reviewed. Surface echocardiogram from March 2020 revealed normal LV size with an ejection fraction of 55%. Right ventricular systolic pressure was estimated to be 30 mmHg. Rapid coronavirus antigen testing was negative. Respiratory viral panel was negative. Strep and urine Legionella antigens were negative. - Physical Exam Vitals/I&O's: Vital Signs Temp Pulse Resp BP Pulse Ox 97.4 F L 60 19 H 143/66 H 95 05/10/20 00:00 05/10/20 02:25 05/10/20 02:25 05/10/20 02:00 05/10/20 02:25 Oxygen Flow Rate (L/min) 3 Oxygen Delivery Method Bi-pap Weight: 242 lb 8.136 oz Body Mass Index (BMI) 34.7 Finger Stick Blood Glucose 284 Intake and Output for Last 24 Hours 05/08/20 05/09/20 05/10/20 23:59 23:59 23:59 Intake Total 307.08 / 307.08 1540 / 1540 Output Total 300 / 300 Balance 307.08 / 307.08 1240 / 1240 General: Alert, Cooperative, No apparent distress, - - Hard of hearing. HEENT: Atraumatic, Normocephalic Oral: Dry Mucosa Neck: Supple, No Nodes, Trachea Midline Lungs: Diminished, Rales Cardiovascular: Regular rate, Regular Rhythm Abdomen: Bowel Sounds Present, Soft, Non Tender, Obese Extremities: No clubbing, No cyanosis, Edema Skin: No breakdown Musculoskeletal: No Tenderness to Palpation of Joints or Extremities Lymphatic: No Cervical, Supraclavicular, or Inguinal Adenopathy Neurological: - - No focal neurological deficits. Psych/Mental Status: Normal Affect Labs (Last 48 Hours) 05/09/20 05/09/20 05/09/20 17:45 17:45 17:45 WBC 6.6 RBC 4.04 L Hgb 10.2 L Hct 35.3 L MCV 87.4 MCH 25.2 L MCHC 28.9 L RDW Std Deviation 51.9 H RDW Coeff of Cinda 16.1 H Plt Count 217 MPV 10.2 Immature Gran % (Auto) 0.300 Neut % (Auto) 75.6 H Lymph % (Auto) 15.7 L [place] % (Auto) 6.7 Eos % (Auto) 1.5 Baso % (Auto) 0.2 Absolute Neuts (auto) 5.0 Absolute Lymphs (auto) 1.03 Nucleated RBC % 0 PT 15.1 H INR 1.3 APTT 36.0 D-Dimer Quant (PE/DVT) 3.37 H* Sodium 138 Potassium 3.8 Chloride 99 Carbon Dioxide 33.0 H Anion Gap 6 BUN 20 H Creatinine 0.91 Estim Creat Clear Calc 79.11 Est GFR (MDRD) Af Amer 106 Est GFR (MDRD) Non-Af 88 BUN/Creatinine Ratio 22.0 H Glucose 239 H Lactic Acid Calcium 8.4 L Magnesium Total Bilirubin AST ALT Alkaline Phosphatase Troponin I < 0.015 Total Protein Albumin Globulin Albumin/Globulin Ratio Procalcitonin MRSA (PCR) POC Glucose 05/09/20 05/09/20 05/09/20 17:56 23:00 23:00 WBC RBC Hgb Hct MCV MCH MCHC RDW Std Deviation RDW Coeff of Cinda Plt Count MPV Immature Gran % (Auto) Neut % (Auto) Lymph % (Auto) [place] % (Auto) Eos % (Auto) Baso % (Auto) Absolute Neuts (auto) Absolute Lymphs (auto) Nucleated RBC % PT INR APTT D-Dimer Quant (PE/DVT) Sodium Potassium Chloride Carbon Dioxide Anion Gap BUN Creatinine Estim Creat Clear Calc Est GFR (MDRD) Af Amer Est GFR (MDRD) Non-Af BUN/Creatinine Ratio Glucose Lactic Acid 3.0 H* Calcium Magnesium 1.5 L Total Bilirubin AST ALT Alkaline Phosphatase Troponin I 0.023 Total Protein Albumin Globulin Albumin/Globulin Ratio Procalcitonin < 0.04 MRSA (PCR) POC Glucose 05/09/20 05/09/20 05/09/20 23:00 23:00 23:02 WBC RBC Hgb Hct MCV MCH MCHC RDW Std Deviation RDW Coeff of Cinda Plt Count MPV Immature Gran % (Auto) Neut % (Auto) Lymph % (Auto) [place] % (Auto) Eos % (Auto) Baso % (Auto) Absolute Neuts (auto) Absolute Lymphs (auto) Nucleated RBC % PT INR APTT D-Dimer Quant (PE/DVT) Sodium Potassium Chloride Carbon Dioxide Anion Gap BUN Creatinine Estim Creat Clear Calc Est GFR (MDRD) Af Amer Est GFR (MDRD) Non-Af BUN/Creatinine Ratio Glucose Lactic Acid 1.6 Calcium Magnesium Total Bilirubin AST ALT Alkaline Phosphatase Troponin I Total Protein Albumin Globulin Albumin/Globulin Ratio Procalcitonin MRSA (PCR) Negative POC Glucose 227 H 05/10/20 05/10/20 05/10/20 02:30 02:30 02:30 WBC 5.7 RBC 3.26 L Hgb 8.3 L Hct 28.3 L MCV 86.8 MCH 25.5 L MCHC 29.3 L RDW Std Deviation 51.4 H RDW Coeff of Cinda 16.2 H Plt Count 165 MPV 10.6 Immature Gran % (Auto) 0.200 Neut % (Auto) 73.8 H Lymph % (Auto) 16.9 L [place] % (Auto) 7.5 Eos % (Auto) 1.6 Baso % (Auto) 0.0 Absolute Neuts (auto) 4.2 Absolute Lymphs (auto) 0.97 Nucleated RBC % 0 PT INR APTT D-Dimer Quant (PE/DVT) Sodium 140 Potassium 3.4 L Chloride 102 Carbon Dioxide 34.0 H Anion Gap 4 L BUN 18 Creatinine 0.60 L Estim Creat Clear Calc 71.99 Est GFR (MDRD) Af Amer 170 Est GFR (MDRD) Non-Af 140 BUN/Creatinine Ratio 29.8 H Glucose 151 H Lactic Acid Calcium 7.7 L Magnesium Total Bilirubin 0.40 AST 9 L ALT 17 Alkaline Phosphatase 119 H Troponin I 0.021 Total Protein 6.4 Albumin 2.7 L Globulin 3.7 Albumin/Globulin Ratio 0.7 L Procalcitonin MRSA (PCR) POC Glucose 05/10/20 05:16 WBC RBC Hgb Hct MCV MCH MCHC RDW Std Deviation RDW Coeff of Cinda Plt Count MPV Immature Gran % (Auto) Neut % (Auto) Lymph % (Auto) [place] % (Auto) Eos % (Auto) Baso % (Auto) Absolute Neuts (auto) Absolute Lymphs (auto) Nucleated RBC % PT INR APTT D-Dimer Quant (PE/DVT) Sodium Potassium Chloride Carbon Dioxide Anion Gap BUN Creatinine Estim Creat Clear Calc Est GFR (MDRD) Af Amer Est GFR (MDRD) Non-Af BUN/Creatinine Ratio Glucose Lactic Acid Calcium Magnesium Total Bilirubin AST ALT Alkaline Phosphatase Troponin I Total Protein Albumin Globulin Albumin/Globulin Ratio Procalcitonin MRSA (PCR) POC Glucose 129 H Microbiology 05/10/20 02:30 Urine, Clean Catch Legionella Antigen - Final 05/10/20 02:30 Urine, Clean Catch Streptococcus pneumoniae Antigen (M - Final 05/09/20 21:55 Mucosa - Nasopharyngeal Respiratory Panel (PCR) - Final 05/09/20 21:05 Mucosa - Nose SARS-CoV-2 Antigen (Rapid) - Final Clinical Impression(s) from Imaging Studies Chest X-Ray 05/09/20 17:50 IMPRESSION: Increased interstitial markings may represent edema and/or infection. Electronically Signed: Eric Martinez MD at 18:53 EDT Tel , Service support , Chest CTA 05/09/20 18:32 IMPRESSION: 1. No evidence of pulmonary embolus. 2. No aortic dissection or aneurysm. 3. Bilateral pleural effusions and atelectasis not previously noted. 4. Vague ground glass infiltrates in right middle lobe not previously noted. 5. Otherwise stable findings. Electronically Signed: Henrry Baron DO at 19:45 EDT Tel [phone], Service support , Current Medications Acetaminophen (Acetaminophen 325 Mg Tablet) 650 mg PO Q6H PRN PRN PRN Reason: Pain Score 1-10/Temp > 100.7 F Last Admin: 05/09/20 23:20 Dose: 650 mg Documented by: Al Hydroxide/Mg Hydroxide (Mag Hydrox/Al Hydrox/Simeth 30 Ml Udc) 30 ml PO Q6H PRN PRN PRN Reason: Gastric Burning Albuterol Sulfate (Albuterol 2.5 Mg/3 Ml Vial.Neb.) 2.5 mg INHALATION Q2H PRN PRN PRN Reason: Dyspnea, wheezing Albuterol/Ipratropium (Ipratropium/Albuterol Sulfate 3 Ml Ampul.Neb) 3 ml INHALATION Q4HWA.RT [facility] Last Admin: 05/09/20 23:07 Dose: 3 ml Documented by: Aspirin (Aspirin E.C. 81 Mg Tablet) 81 mg PO DAILY@0800 [facility] Carvedilol (Carvedilol 12.5 Mg Tablet) 18.75 mg PO BID [facility] Last Admin: 05/09/20 23:13 Dose: 18.75 mg Documented by: Clopidogrel Bisulfate (Clopidogrel Bisulfate 75 Mg Tablet) 75 mg PO DAILY [facility] Enoxaparin Sodium (Enoxaparin 40 Mg/0.4 Ml Syringe) 40 mg SC DAILY [facility] Escitalopram Oxalate (Escitalopram Oxalate 10 Mg Tablet) 10 mg PO DAILY [facility] Famotidine (Famotidine 20 Mg Tablet) 20 mg PO BID [facility] Last Admin: 05/09/20 23:15 Dose: 20 mg Documented by: Finasteride (Finasteride 5 Mg Tablet) 5 mg PO DAILY [facility] Furosemide (Furosemide 20 Mg Tablet) 20 mg PO DAILY [facility] Gabapentin (Gabapentin 300 Mg Capsule) 300 mg PO BID [facility] Last Admin: 05/09/20 23:12 Dose: 300 mg Documented by: Guaifenesin (Guaifenesin 10 Ml Udc (200mg/10ml)) 10 ml PO Q4H PRN PRN PRN Reason: COUGH Hydralazine HCl (Hydralazine 20 Mg/Ml Vial) 10 mg IV Q4H PRN PRN PRN Reason: SBP > 160 Sodium Chloride () 1,000 mls @ 125 mls/hr IV .Q8H [facility] Last Infusion: 05/10/20 01:20 Dose: 125 mls/hr Documented by: Piperacillin Sod/Tazobactam (Sod 3.375 gm/ Sodium Chloride) 50 mls @ 12.5 mls/hr IV Q8 [facility] Vancomycin IV Pharmacy to Dose (1 each/ Sodium Chloride) 500 mls @ 250 mls/hr IV X1 PRN; Protocol PRN Reason: Rx to Dose Sodium Chloride () 250 mls @ 15 mls/hr IV .[id number] PRN PRN Reason: Saline Flush Sodium Chloride () 250 mls @ 15 mls/hr IV .[id number] PRN PRN Reason: Additional IVPB Infusion Vancomycin HCl 1,250 mg/ (Sodium Chloride) 275 mls @ 167 mls/hr IV Q8H [facility] Insulin Human Lispro (Insulin Lispro 100 Unit/Ml Insuln.Pen) 0 [facility]; Protocol Last Admin: 05/09/20 23:20 Dose: 2 u Documented by: Levetiracetam (Levetiracetam 500 Mg Tablet) 1,000 mg PO BID [facility] Last Admin: 05/09/20 23:13 Dose: 1,000 mg Documented by: Melatonin (Melatonin 3 Mg Tablet) 3 mg PO QHS PRN PRN PRN Reason: INSOMNIA Morphine Sulfate (Morphine 2 Mg/Ml Syringe) 2 mg IV Q3H PRN PRN PRN Reason: Pain Score 6-10 Nitroglycerin (Nitroglycerin (Inpatient Use) 0.4 Mg Tab.Subl) 0.4 mg SL Q5M PRN PRN Reason: CARDIAC/CHEST PAIN Ondansetron HCl (Ondansetron 4 Mg/2 Ml Vial) 4 mg IV Q8H PRN PRN PRN Reason: NAUSEA/VOMITING Oxycodone HCl (Oxycodone 5 Mg Tablet) 5 mg PO Q4H PRN PRN PRN Reason: Pain Score 4-5 Pantoprazole Sodium (Pantoprazole Sodium 40 Mg Tablet) [facility] Potassium Chloride (Potassium Chloride Oral Tablet 20 Meq) 20 meq PO DAILY [facility] Prochlorperazine Edisylate (Prochlorperazine 10 Mg/2 Ml Vial) 5 mg IV Q4H PRN PRN PRN Reason: Breakthrough Nausea/Vomiting Psyllium Hydrophilic Mucilloid (Psyllium 1 Packet) 1 packet PO DAILY PRN PRN PRN Reason: Constipation Ranolazine (Ranolazine 500 Mg Tablet) 500 mg PO BID [facility] Last Admin: 05/09/20 23:15 Dose: 500 mg Documented by: Senna/Docusate Sodium (Senna/Docusate Sodium 1 Tablet) 2 tablet PO BID PRN PRN PRN Reason: Constipation Sodium Chloride (0.9% Saline Lock 10 Ml Syringe) 10 - 40 ml IV UD PRN PRN Reason: SALINE FLUSH Last Admin: 05/09/20 23:15 Dose: 10 ml Documented by: Tamsulosin HCl (Tamsulosin Hcl 0.4 Mg Capsule) 0.4 mg PO QHS [facility] Last Admin: 05/09/20 23:14 Dose: 0.4 mg Documented by: Throat Lozenges (Benzocaine/Menthol 1 Lozenge) 1 lozenge MUCOUS MEM Q2H PRN PRN PRN Reason: SORE THROAT Assessment/Plan Active and Suspected Problems (Last Reviewed 04/09/20 @ 00:[address] Carlos Alberto Fermin MD) Syncope and collapse (Acute) Severe sepsis (Acute) Right middle lobe pneumonia (Acute) Respiratory failure (Acute) Acute on chronic respiratory failure (Acute) RECOMMENDATIONS: 1. Obtain BNP and stop supplemental IV fluids. 2. Continue Zosyn. Okay to discontinue vancomycin from my perspective. 3. Consider up titration of Lasix regimen. 4. Obtain cardiology consultation given presenting syncope and history of coronary disease. 5. Potassium repletion. 6. Wean oxygen to maintain saturations at or above 90%. 7. Continue scheduled bronchodilator therapy. 8. Encourage incentive spirometer use and mobilize patient as tolerated. IMPRESSIONS: 1. Acute on chronic hypoxemic respiratory failure Clinical concern for potential pneumonia coupled with possible decompensated heart failure, especially in the setting of bilateral pleural effusions noted on CT chest. We will plan to obtain BNP. In addition, supplemental IV fluids will be discontinued given rales noted on exam. Recommend continuing IV diuretic therapy. Antimicrobials will be continued accordingly. Wean supplemental oxygen to maintain saturations at or above 90%. Continue bronchodilator therapy. Encourage incentive spirometer use and mobilize patient as tolerated. 2. History of coronary artery disease/syncope The patient does have a known coronary history and did apparently experience a syncopal event in the emergency department. Will obtain cardiology consu ltation. May need to consider device interrogation. 3. Hypokalemia/hypomagnesemia Electrolyte repletion as ordered. Recheck levels in the morning. 4. History of tobacco dependency with questionable COPD/hypertension/hyperlipidemia/diabetes mellitus/obesity/obstructive sleep apnea Complicates care, management, recovery and prognosis. Continue bronchodilator therapy as ordered. Continue nocturnal Pap therapy. This note was generated with [employer]facep[employer] dictation software. It may contain incorrect words, spelling, and punctuation that were not noted in checking the note before signing. Inpatient E&M: 23019 Init Hosp L3
--- NOTE | 2020-05-10 05:55 | EKG12_ITS ---
Test Reason : AM EKG Blood Pressure : / mmHG Vent. Rate : 060 BPM Atrial Rate : 056 BPM P-R Int : 000 ms QRS Dur : 124 ms QT Int : 494 ms P-R-T Axes : 000 -13 150 degrees QTc Int : 494 ms Electronic atrial pacemaker ST & T wave abnormality, consider anterolateral ischemia Abnormal ECG When compared with ECG of 08-APR-2020 17:18, Electronic atrial pacemaker has replaced Sinus rhythm Confirmed by PADILLA GUALLPA, CALI ([id number]), production editor NADINE FERRER ([id number]) on 05/14/2020 1:56:17 PM Referred By: HARVEY Confirmed By:CALI CAUSEY MD
[2020-05-10] MEDS: Ipratropium/Albuterol Sulfate 3 ML AMPUL.NEB INHALATION ×4 (06:55→19:02)
[2020-05-10 08:42] LABS: BNP,B-Type NATRIURETIC PEPTIDE 178.5 pg/mL (0-100)
[2020-05-10] MEDS: Aspirin E.C. 81 MG Tablet PO (09:05)
[2020-05-10] MEDS: Potassium Chloride Oral Tablet 20 MEQ PO (09:06)
[2020-05-10] MEDS: Carvedilol 12.5 MG Tablet 18.75 MG PO ×2 (09:06→21:07)
[2020-05-10] MEDS: Gabapentin 300 MG Capsule PO ×2 (09:07→21:07)
[2020-05-10] MEDS: Furosemide 20 MG Tablet PO (09:07)
[2020-05-10] MEDS: Escitalopram Oxalate 10 MG Tablet PO (09:07)
[2020-05-10] MEDS: levETIRAcetam 500 MG Tablet 1000 MG PO ×2 (09:07→21:07)
[2020-05-10] MEDS: Clopidogrel Bisulfate 75 MG Tablet PO (09:07)
[2020-05-10] MEDS: Enoxaparin 40 MG/0.4 ML Syringe SC (09:07)
[2020-05-10] MEDS: Ranolazine 500 MG Tablet PO ×2 (09:08→21:07)
[2020-05-10] MEDS: Finasteride 5 MG Tablet PO (09:08)
[2020-05-10] MEDS: Pantoprazole Sodium 40 MG Tablet PO ×2 (09:10→16:55)
[2020-05-10] MEDS: 0.9% Saline Lock 10 ML Syringe IV ×2 (09:16→15:02)
[2020-05-10] MEDS: Insulin Lispro 100 UNIT/ML INSULN.PEN SC ×3 (12:31→21:07)
--- NOTE | 2020-05-10 12:31 | PN_ITS ---
Patient Problems: Active and Suspected Problems (Last Reviewed 04/09/20 @ 00:[address] Carlos Alberto Fermin MD) Syncope and collapse (Acute) Severe sepsis (Acute) Right middle lobe pneumonia (Acute) Respiratory failure (Acute) Acute on chronic respiratory failure (Acute) Subjective: Patient seen and examined. He had no complaints today. He was sitting comfortably in a chair. He denied any fever, chills, lightheadedness, dizziness, nausea or vomiting. Review of systems is otherwise negative. Potassium is 3.4. He has remained hemodynamically stable. Vitals/I&O's: Vital Signs Temp Pulse Resp BP Pulse Ox 98.7 F 61 15 147/71 H 96 05/10/20 08:00 05/10/20 11:17 05/10/20 11:17 05/10/20 08:00 05/10/20 08:00 Oxygen Flow Rate (L/min) 3 Oxygen Delivery Method Nasal Cannula Weight: 244 lb 7.882 oz Body Mass Index (BMI) 34.7 Finger Stick Blood Glucose 284 Intake and Output for Last 24 Hours 05/08/20 05/09/20 05/10/20 23:59 23:59 23:59 Intake Total 307.08 / 307.08 2768.75 / 2768.75 Output Total 1475 / 1475 Balance 307.08 / 307.08 1293.75 / 1293.75 General: Alert, Oriented x3, Cooperative, No apparent distress HEENT: Atraumatic, PERRLA, EOMI, Normocephalic, - - has Oral: Dry Mucosa Neck: Supple, No JVD, Negative Carotid Bruits Lungs: - - has coarse crackles in mid and lower lung flores. On 2L of oxygen by nasal canula Cardiovascular: Regular rate, Regular Rhythm, Normal S1, Normal S2, No murmurs Abdomen: Bowel Sounds Present, Soft, Non Tender, Non-Distended, No Hepato- splenomegaly Extremities: No clubbing, No cyanosis, No edema, Capillary Refill Less than 3 Seconds Skin: No rashes, No breakdown Musculoskeletal: No Tenderness to Palpation of Joints or Extremities Lymphatic: No Cervical, Supraclavicular, or Inguinal Adenopathy Neurological: Cranial nerves II-XII grossly intact, Neuro grossly intact, Motor Exam 5/5 strength throughout Psych/Mental Status: Normal Affect, Appropriate, Alert and oriented to time, place, person, mood and affect Microbiology Past 72 Hours 05/10/20 02:30 Urine, Clean Catch Legionella Antigen - Final 05/10/20 02:30 Urine, Clean Catch Streptococcus pneumoniae Antigen (M - Final 05/09/20 21:55 Mucosa - Nasopharyngeal Respiratory Panel (PCR) - Final 05/09/20 21:05 Mucosa - Nose SARS-CoV-2 Antigen (Rapid) - Final Laboratory Results 05/09/20 17:45: WBC 6.6, RBC 4.04 L, Hgb 10.2 L, Hct 35.3 L, MCV 87.4, MCH 25.2 L, MCHC 28.9 L, RDW Std Deviation 51.9 H, RDW Coeff of Cinda 16.1 H, Plt Count 217, MPV 10.2, Immature Gran % (Auto) 0.300, Neut % (Auto) 75.6 H, Lymph % (Auto) 15.7 L, [place] % (Auto) 6.7, Eos % (Auto) 1.5, Baso % (Auto) 0.2, Absolute Neuts (auto) 5.0, Absolute Lymphs (auto) 1.03, Nucleated RBC % 0 05/09/20 17:45: PT 15.1 H, INR 1.3, APTT 36.0, D-Dimer Quant (PE/DVT) 3.37 H* 05/09/20 17:45: Sodium 138, Potassium 3.8, Chloride 99, Carbon Dioxide 33.0 H, Anion Gap 6, BUN 20 H, Creatinine 0.91, Estim Creat Clear Calc 79.11, Est GFR (MDRD) Af Amer 106, Est GFR (MDRD) Non-Af 88, BUN/Creatinine Ratio 22.0 H, Glucose 239 H, Calcium 8.4 L, Troponin I < 0.015 05/09/20 17:56: Lactic Acid 3.0 H* 05/09/20 23:00: Magnesium 1.5 L, Troponin I 0.023 05/09/20 23:00: Procalcitonin < 0.04 05/09/20 23:00: Lactic Acid 1.6 05/09/20 23:00: MRSA (PCR) Negative 05/09/20 23:02: POC Glucose 227 H 05/10/20 02:30: WBC 5.7, RBC 3.26 L, Hgb 8.3 L, Hct 28.3 L, MCV 86.8, MCH 25.5 L , MCHC 29.3 L, RDW Std Deviation 51.4 H, RDW Coeff of Cinda 16.2 H, Plt Count 165, MPV 10.6, Immature Gran % (Auto) 0.200, Neut % (Auto) 73.8 H, Lymph % (Auto) 1 6.9 L, [place] % (Auto) 7.5, Eos % (Auto) 1.6, Baso % (Auto) 0.0, Absolute Neuts (auto) 4.2, Absolute Lymphs (auto) 0.97, Nucleated RBC % 0 05/10/20 02:30: Sodium 140, Potassium 3.4 L, Chloride 102, Carbon Dioxide 34.0 H , Anion Gap 4 L, BUN 18, Creatinine 0.60 L, Estim Creat Clear Calc 71.99, Est GFR (MDRD) Af Amer 170, Est GFR (MDRD) Non-Af 140, BUN/Creatinine Ratio 29.8 H, Glucose 151 H, Calcium 7.7 L, Total Bilirubin 0.40, AST 9 L, ALT 17, Alkaline Phosphatase 119 H, Total Protein 6.4, Albumin 2.7 L, Globulin 3.7, Albumin/Globulin Ratio 0.7 L 05/10/20 02:30: Troponin I 0.021 05/10/20 05:16: POC Glucose 129 H 05/10/20 08:15: B-Natriuretic Peptide 178.5 H Diagnostic Data Chest X-Ray 05/09/20 17:50 IMPRESSION: Increased interstitial markings may represent edema and/or infection. Electronically Signed: Eric Martinez MD at 18:53 EDT Tel , Service support , Chest CTA 05/09/20 18:32 IMPRESSION: 1. No evidence of pulmonary embolus. 2. No aortic dissection or aneurysm. 3. Bilateral pleural effusions and atelectasis not previously noted. 4. Vague ground glass infiltrates in right middle lobe not previously noted. 5. Otherwise stable findings. Electronically Signed: Henrry Baron DO at 19:45 EDT Tel [phone], Service support , Current Medications Acetaminophen (Acetaminophen 325 Mg Tablet) 650 mg PO Q6H PRN PRN PRN Reason: Pain Score 1-10/Temp > 100.7 F Last Admin: 05/09/20 23:20 Dose: 650 mg Documented by: Al Hydroxide/Mg Hydroxide (Mag Hydrox/Al Hydrox/Simeth 30 Ml Udc) 30 ml PO Q6H PRN PRN PRN Reason: Gastric Burning Albuterol Sulfate (Albuterol 2.5 Mg/3 Ml Vial.Neb.) 2.5 mg INHALATION Q2H PRN PRN PRN Reason: Dyspnea, wheezing Albuterol/Ipratropium (Ipratropium/Albuterol Sulfate 3 Ml Ampul.Neb) 3 ml INHALATION Q4HWA.RT [facility] Last Admin: 05/10/20 11:17 Dose: 3 ml Documented by: Aspirin (Aspirin E.C. 81 Mg Tablet) 81 mg PO DAILY@0800 [facility] Last Admin: 05/10/20 09:05 Dose: 81 mg Documented by: Carvedilol (Carvedilol 12.5 Mg Tablet) 18.75 mg PO BID [facility] Last Admin: 05/10/20 09:06 Dose: 18.75 mg Documented by: Clopidogrel Bisulfate (Clopidogrel Bisulfate 75 Mg Tablet) 75 mg PO DAILY [facility] Last Admin: 05/10/20 09:07 Dose: 75 mg Documented by: Enoxaparin Sodium (Enoxaparin 40 Mg/0.4 Ml Syringe) 40 mg SC DAILY [facility] Last Admin: 05/10/20 09:07 Dose: 40 mg Documented by: Escitalopram Oxalate (Escitalopram Oxalate 10 Mg Tablet) 10 mg PO DAILY [facility] Last Admin: 05/10/20 09:07 Dose: 10 mg Documented by: Finasteride (Finasteride 5 Mg Tablet) 5 mg PO DAILY [facility] Last Admin: 05/10/20 09:08 Dose: 5 mg Documented by: Furosemide (Furosemide 20 Mg Tablet) 20 mg PO DAILY [facility] Last Admin: 05/10/20 09:07 Dose: 20 mg Documented by: Gabapentin (Gabapentin 300 Mg Capsule) 300 mg PO BID [facility] Last Admin: 05/10/20 09:07 Dose: 300 mg Documented by: Guaifenesin (Guaifenesin 10 Ml Udc (200mg/10ml)) 10 ml PO Q4H PRN PRN PRN Reason: COUGH Hydralazine HCl (Hydralazine 20 Mg/Ml Vial) 10 mg IV Q4H PRN PRN PRN Reason: SBP > 160 Piperacillin Sod/Tazobactam (Sod 3.375 gm/ Sodium Chloride) 50 mls @ 12.5 mls/hr IV Q8 [facility] Last Admin: 05/10/20 08:16 Dose: 12.5 mls/hr Documented by: Sodium Chloride () 250 mls @ 15 mls/hr IV .[id number] PRN PRN Reason: Saline Flush Sodium Chloride () 250 mls @ 15 mls/hr IV .[id number] PRN PRN Reason: Additional IVPB Infusion Insulin Human Lispro (Insulin Lispro 100 Unit/Ml Insuln.Pen) 0 unit SC ACHS [facility]; Protocol Last Admin: 05/10/20 08:16 Dose: Not Given Documented by: Levetiracetam (Levetiracetam 500 Mg Tablet) 1,000 mg PO BID [facility] Last Admin: 05/10/20 09:07 Dose: 1,000 mg Documented by: Nitroglycerin (Nitroglycerin (Inpatient Use) 0.4 Mg Tab.Subl) 0.4 mg SL Q5M PRN PRN Reason: CARDIAC/CHEST PAIN Pantoprazole Sodium (Pantoprazole Sodium 40 Mg Tablet) 40 mg PO BIDCM [facility] Last Admin: 05/10/20 09:10 Dose: 40 mg Documented by: Potassium Chloride (Potassium Chloride Oral Tablet 20 Meq) 20 meq PO DAILY [facility] Last Admin: 05/10/20 09:06 Dose: 20 meq Documented by: Prochlorperazine Edisylate (Prochlorperazine 10 Mg/2 Ml Vial) 5 mg IV Q4H PRN PRN PRN Reason: Breakthrough Nausea/Vomiting Psyllium Hydrophilic Mucilloid (Psyllium 1 Packet) 1 packet PO DAILY PRN PRN PRN Reason: Constipation Ranolazine (Ranolazine 500 Mg Tablet) 500 mg PO BID [facility] Last Admin: 05/10/20 09:08 Dose: 500 mg Documented by: Senna/Docusate Sodium (Senna/Docusate Sodium 1 Tablet) 2 tablet PO BID PRN PRN PRN Reason: Constipation Sodium Chloride (0.9% Saline Lock 10 Ml Syringe) 10 - 40 ml IV UD PRN PRN Reason: SALINE FLUSH Last Admin: 05/10/20 09:16 Dose: 10 ml Documented by: Tamsulosin HCl (Tamsulosin Hcl 0.4 Mg Capsule) 0.4 mg PO QHS [facility] Last Admin: 05/09/20 23:14 Dose: 0.4 mg Documented by: Throat Lozenges (Benzocaine/Menthol 1 Lozenge) 1 lozenge MUCOUS MEM Q2H PRN PRN PRN Reason: SORE THROAT STROKE Vital Signs/Narrative: Vital Signs Pulse Resp 05/10/20 11:17 61 15 Medical Necessity - Tobacco Use Smoking Status: Former smoker Tobacco Use: Non-smoker Assessment/Plan All Active Problems (Last Reviewed 04/09/20 @ 00:[address] Carlos Alberto Fermin MD) Syncope and collapse (Acute) Acute electrocardiogram changes (Acute) Severe sepsis (Acute) Right middle lobe pneumonia (Acute) Respiratory failure (Acute) Acute on chronic respiratory failure (Acute) History of coronary artery stent placement (Resolved) H/O coronary artery bypass surgery (Resolved) Abnormal EKG (Acute) #Severe sepsis due to community acquired pneumonia with bilateral pleural effusions * SIRS criteria now 0/4 * On IV vancomycin and Zosyn. * Blood cultures and sputum cultures pending. Covid test was negative. * Transfer to progressive care unit as patient has improved significantly. #Acute on chronic HFpEF: * BNP is 178. * IV fluids stopped. * On IV Lasix. * Cardiology consulted on account of presenting with syncope and his history of heart disease. * #Hypokalemia: Replace and monitor. #Syncope: Patient did pass out in the ED. Cardiology consulted. Troponins were negative. #Chronic hypoxic respiratory failure: On 2 L of oxygen at home. Currently on 2 L. Breathing treatments with bronchodilators. #History of seizure disorder: On Keppra #Pretension: On Coreg and Lasix. IV hydralazine as needed. #Type 2 diabetes mellitus with neuropathy. * On Lantus 195 units twice daily. Insulin sliding scale. Checks AC at bedtime. Awaiting confirmation of home Lantus dose. * Gabapentin for neuropathy. #BPH: On Flomax. #GERD: On PPI #history of CVA with chronic aphasia * On aspirin and Plavix as well as statin. VT prophylaxis: Lovenox Inpatient E&M: 13788 Subs Hosp L3
[2020-05-10 12:35] LABS: Bedside Glucose 213 mg/dL (70-110)
--- NOTE | 2020-05-10 14:09 | NURSING ---
Staff call, staff into room. Pt was ambulating with PT/OT and per PT/OT got less coherent and knees got soft. Observed pt laying in bed, VS obtained. Pt A&Ox3, denies dizziness. Dr Barnes notified, received verbal order to do orthostatic VS.
--- NOTE | 2020-05-10 15:18 | CASEMGMT ---
KRISTI GERONIMO readmission note: Prior admission: Admitted w/syncope 04/09/20 and discharged home w/ w/NAWAF w/[facility] on 04/10/20. Echo 55%. Orthostatic BP's done w/drop and SBP and syncope felt to be r/t Ranexa and Flomax. Pt discharged home w/decrease in Ranexa to 500 mg BID and Fomax to 0.4 mg Q HS. Current admission: Admitted 05/09/20 w/resp failure, PNA, severe sepsis, and syncopal event. KRISTI GERONIMO to room to meet with pt and also called pt's while @ bedside per pt's request, as he stated, She knows more than I do. Per /pt, pt has been taking all of his medications as ordered and has went to all scheduled appts. states pt has had a recent hospitalization in [place] since last admission to [facility]. states pt is no longer active with [facility] but she feels, if pt is strong enough to return back home, that pt would benefit from [facility] again. Pt is agreeable. states she/pt have recently had a discussion about SNF's and if pt would need SNF @ discharge, they decided on [facility] in [place] as being 1st choice. Pt states he prefers to return home @ discharge, if able, but if SNF is needed, then he would be willing to go to [facility]. PCP: [facility] Specialists: Has seen numerous specialists at the ID over the years. states has the following upcoming appts: 05/11/20: 2 PM. To have COVID testing completed @ [facility] for upcoming appt on Sunday 05/14. plans to call PCU 05/11 AM to inquire about anticipated discharge date to determine if she needs to cancel this appt. 05/14/20: [facility] for Dental appt and re: CPAP. 05/16: Dr Syed in [place]--re: prostate 05/23: [facility]--re: pacemaker 06/07: Appt with Trauma surgeon Dr William Jasso re: rib fracture/recent placement of plates/screws. Preferred Pharmacy: [facility] Insurance: [facility] A Prescription Benefit: [facility] LNOK: Lucina Cintron, /HPOA Living Arrangements: Pt lives with in 1 story home with 1 step in. supportive and manages pt's medications/appts. Transportation: drives DME: Pt has the following DME: cane, walker, electric scooter, grab bars, shower chair, bipap, and 2L continuous [facility] oxygen [facility]. Discharge plan: TBD. SNF ([facility] 1st choice) vs Home w/HHC ([facility] 1st choice). SW/CM to follow. Wendy JUANN RN CM
--- NOTE | 2020-05-10 15:31 | CON.PCM_ITS ---
Problem List (1) Syncope and collapse Status: Acute (2) Atypical chest pain Status: Chronic (3) CAD (coronary artery disease) Status: Chronic Qualifiers: Coronary Disease-Associated Artery/Lesion type: shoshone-bannock artery [place] vs. transplanted heart: shoshone-bannock heart Reason for Consult Date of Consultation: 05/10/20 Reason for Consultation: Shortness of breath, elevated BNP, syncope, CAD History of Present Illness: The patient is a 69 year old M [with past medical history of cerebrovascular accidents, coronary artery disease status post CABG and PCI, status post pacemaker placement, COPD, on home oxygen, sleep apnea presenting to [facility] because of worsening shortness of breath. [facility] Patient states that he has been having chest pressure since 2006 and it has been slowly getting worse over the past few weeks. He does say that he gets more short of breath when he lies down flat. He had a 2D echo 1 month back which showed preserved EF and no significant valvular abnormalities. He had a stress test about a year back which was negative for ischemia and his EF was again preserved. Patient states that his shortness of breath has improved slightly since admission. He is a somewhat poor historian. He denies any specific aggravating or relieving factors to his chest discomfort. He says that sometimes it lasts an hour and sometimes he has it the whole day. There is a history of syncope as well. Patient does not recall this but states that a nurse had mentioned that he passed out. Prior admissions review few episodes of syncope as well. His pacemaker was interrogated this admission and did not reveal any tachy or bradycardia arrhythmias that could explain her syncope. Review of systems: All systems reviewed. All else is negative except that in the HPI Past Medical History Allergies/Adverse Reactions: Allergies ezetimibe Allergy (Verified 05/09/20 17:34) Unknown Fish Containing Products Allergy (Verified 05/09/20 17:34) Unknown glyburide Allergy (Verified 05/09/20 17:34) Unknown isosorbide Allergy (Verified 05/09/20 17:34) PT UNSURE OF REACTION lisinopril Allergy (Verified 05/09/20 17:34) Unknown metformin Allergy (Verified 05/09/20 17:34) Nausea metoprolol Allergy (Verified 05/09/20 17:34) Unknown simvastatin Allergy (Verified 05/09/20 17:34) Unknown Home Medications: Ambulatory Orders Medication Instructions Recorded Aspirin E.C. [Ecotrin] 81 mg PO DAILY@0800 06/11/18 Atorvastatin Calcium [Lipitor] 80 mg PO QHS 06/11/18 Cholecalciferol (VIT D3) [Vitamin 3,000 units PO DAILY 06/11/18 D3] Clopidogrel Bisulfate [Clopidogrel] 75 mg PO DAILY 06/11/18 Escitalopram Oxalate [Lexapro] 10 mg PO DAILY 06/11/18 Finasteride [Proscar] 5 mg PO DAILY 06/11/18 Furosemide [Lasix] 20 mg PO DAILY 06/11/18 Insulin Regular, Human [Humulin R 195 unit SQ BREAKFAST 06/11/18 U-500 Kwikpen] Insulin Regular, Human [Humulin R 195 unit SQ DINNER 06/11/18 U-500 Kwikpen] Multivitamins,Ther W-Minerals 1 tablet PO DAILY 06/11/18 [Multivitamin With Minerals ([facility])] Pantoprazole Sodium 40 mg PO BIDCM 06/11/18 Acetaminophen [Tylenol Tablet] 650 mg PO Q6H PRN PRN tablet 06/21/18 Nitroglycerin (INPATIENT USE) 0.4 mg SUBLINGUAL Q5M PRN #30 07/22/18 [Nitrostat] tablet Carvedilol [Coreg] 18.75 mg PO BID 12/03/18 Diclofenac Sodium [Diclo Gel] 4 gm TP BID PRN PRN 11/08/19 Guaifenesin 10 ml PO TID PRN PRN 11/08/19 Ketoconazole [Nizoral] 1 applicatio TP DAILY 11/08/19 Albuterol Inhaler [Ventolin Hfa] 1 puff INHALATION Q6H PRN PRN 04/08/20 Gabapentin [Neurontin] 300 mg PO BID 04/08/20 Potassium Chloride [Klor-Con M20] 20 meq PO DAILY 04/08/20 levETIRAcetam tablet [Keppra 1,000 mg PO BID 04/08/20 tablet] Ranolazine [Ranexa] 500 mg PO BID #0 04/10/20 Tamsulosin HCl [Flomax] 0.4 mg PO QHS #30 cap 04/10/20 Past Medical History (Chronic Problems): Chronic Problems (Last Reviewed 04/09/20 @ 00:[address] Carlos Alberto Fermin MD) CAD (coronary artery disease) (Chronic) UTI (urinary tract infection) (Chronic) Hypokalemia (Chronic) History of permanent cardiac pacemaker placement (Chronic 09/10/11) 2001 Atherosclerotic heart disease shoshone-bannock coronary artery w/angina pectoris (Chronic) Cardiac catheterization 02/24/2017?normal LV size should not, EF 55%, shoshone-bannock multivessel CAD, patent SVG to diagonal 1, OM 2, and RCA, MASON to LAD pr eviously reported as atretic/nonfunctional (not reevaluated at that time), advised medical therapy Essential (primary) hypertension (Chronic) CONI (acute kidney injury) (Chronic) EKATERINA (obstructive sleep apnea) (Chronic) Chest wall contusion (Chronic) Atypical chest pain (Chronic) Left-sided weakness (Chronic) Hyperlipidemia (Chronic) Obesity (Chronic) Chronic respiratory failure (Chronic) baseline 3L continuously DM type 2 (diabetes mellitus, type 2) (Chronic) Obstructive sleep apnea (Chronic) Seizure (Chronic) Aphasia (Chronic) CVA (cerebral vascular accident) (Chronic) Residual left-sided weakness Surgical History: angioplasty, coronary bypass surgery, pacemaker implantation, - - CABG x 4 and PCI, Cholecystectemy, appendectomy, Hernia repair, L knee, recent trauma with ? Thoracic surgery for flailed chest, pacemaker placement. Psychiatric History: Anxiety, Depression - *Family History Maternal History Items: Diabetes, High Cholesterol, Heart Disease, Hypertension Paternal History Items: Cancer, - Lives: Spouse/ Significant Other Smoking Status: Former smoker Tobacco Use: Non-smoker Alcohol: None Drugs: None Objective: Vital Signs Temp Pulse Resp BP Pulse Ox 97.1 F L 60 18 130/62 H 94 05/10/20 13:30 05/10/20 14:45 05/10/20 13:30 05/10/20 14:45 05/10/20 14:02 Oxygen Flow Rate (L/min) 2 Oxygen Delivery Method Nasal Cannula Weight: 244 lb 7.882 oz Body Mass Index (BMI) 34.7 Finger Stick Blood Glucose 284 Orthostatic Vital Signs Start: 05/10/20 14:43 Freq: q24h Status: Active Protocol: Activity Type Activity Date Activity User E-Sign Co-Sign Detail Recorded Client Recorded Date Recorded By Document 05/10/20 14:45 [facility] [id number] 05/10/20 14:46 BTH 05/10/20 14:45 Orthostatic Vitals Sitting -Blood Pressure (90/60-120/80) 101/40 L -Extremity Use Right Arm -Pulse Rate (60-100) 67 Lying -Blood Pressure (90/60-120/80) 130/62 H -Extremity Use Right Arm -Pulse Rate (60-100) 60 Intake and Output for Last 24 Hours 05/08/20 05/09/20 05/10/20 23:59 23:59 23:59 Intake Total 307.08 / 307.08 2819.50 / 2819.50 Output Total 1475 / 1475 Balance 307.08 / 307.08 1344.50 / 1344.50 General: Awake, Alert, Oriented x 3 HEENT: Atraumatic Oral: Moist Mucosa Neck: Supple, Positive JVD Cardiovascular: Regular Rhythm Abdomen: Soft Extremities: Bilateral Edema +1 Skin: No Rashes Psych/Mental Status: Appropriate 05/09/20 17:45: WBC 6.6, RBC 4.04 L, Hgb 10.2 L, Hct 35.3 L, MCV 87.4, MCH 25.2 L, MCHC 28.9 L, RDW Std Deviation 51.9 H, RDW Coeff of Cinda 16.1 H, Plt Count 217, MPV 10.2, Immature Gran % (Auto) 0.300, Neut % (Auto) 75.6 H, Lymph % (Auto) 15.7 L, [place] % (Auto) 6.7, Eos % (Auto) 1.5, Baso % (Auto) 0.2, Absolute Neuts (auto) 5.0, Absolute Lymphs (auto) 1.03, Nucleated RBC % 0 05/09/20 17:45: PT 15.1 H, INR 1.3, APTT 36.0, D-Dimer Quant (PE/DVT) 3.37 H* 05/09/20 17:45: Sodium 138, Potassium 3.8, Chloride 99, Carbon Dioxide 33.0 H, Anion Gap 6, BUN 20 H, Creatinine 0.91, Estim Creat Clear Calc 79.11, Est GFR (MDRD) Af Amer 106, Est GFR (MDRD) Non-Af 88, BUN/Creatinine Ratio 22.0 H, Glucose 239 H, Calcium 8.4 L, Troponin I < 0.015 05/09/20 17:56: Lactic Acid 3.0 H* 05/09/20 23:00: Magnesium 1.5 L, Troponin I 0.023 05/09/20 23:00: Procalcitonin < 0.04 05/09/20 23:00: Lactic Acid 1.6 05/09/20 23:00: MRSA (PCR) Negative 05/09/20 23:02: POC Glucose 227 H 05/10/20 02:30: WBC 5.7, RBC 3.26 L, Hgb 8.3 L, Hct 28.3 L, MCV 86.8, MCH 25.5 L , MCHC 29.3 L, RDW Std Deviation 51.4 H, RDW Coeff of Cinda 16.2 H, Plt Count 165, MPV 10.6, Immature Gran % (Auto) 0.200, Neut % (Auto) 73.8 H, Lymph % (Auto) 16.9 L, [place] % (Auto) 7.5, Eos % (Auto) 1.6, Baso % (Auto) 0.0, Absolute Neuts (auto) 4.2, Absolute Lymphs (auto) 0.97, Nucleated RBC % 0 05/10/20 02:30: Sodium 140, Potassium 3.4 L, Chloride 102, Carbon Dioxide 34.0 H , Anion Gap 4 L, BUN 18, Creatinine 0.60 L, Estim Creat Clear Calc 71.99, Est GFR (MDRD) Af Amer 170, Est GFR (MDRD) Non-Af 140, BUN/Creatinine Ratio 29.8 H, Glucose 151 H, Calcium 7.7 L, Total Bilirubin 0.40, AST 9 L, ALT 17, Alkaline Phosphatase 119 H, Total Protein 6.4, Albumin 2.7 L, Globulin 3.7, Albumin/Globulin Ratio 0.7 L 05/10/20 02:30: Troponin I 0.021 05/10/20 05:16: POC Glucose 129 H 05/10/20 08:15: B-Natriuretic Peptide 178.5 H 05/10/20 12:30: POC Glucose 213 H Rhythm: EKG: ECHO: Stress Test: Cardiac Cath: PCI: CT Surgery: Holter monitor: EPS: PPM: CXR: Chest CT Scan: Assessment/Plan 1. Shortness of breath: Patient has elevated BNP. He does have trace lower extremity edema and history of orthopnea. It is reasonable to try switching his Lasix to IV to see if this helps with her shortness of breath. It is reasonable to repeat a 2D echo. Prior to CABG patient states that he had mainly shortness of breath but also had chest pressure. It will be reasonable to repeat his stress test as well. 2. Syncope: No evidence of arrhythmias being the etiology for his syncope. At this time it is not clear if this is of cardiac origin. Patient has had CVAs in the past and neurologic etiology can also be considered. 3. CAD: Continue present management. It will be reasonable to repeat a stress test either as an inpatient or as an outpatient in the near future.
--- NOTE | 2020-05-10 15:44 | ECHOCS_ITS ---
Reason For Study: dyspnea Procedure This was a 2D Doppler, Color Flow transthoracic echocardiogram. The study was technically difficult. Due to body habitus. Contrast injection was performed. Exam performed portable in patient room. Left Ventricle Normal LV size. The estimated ejection fraction is 60 %. Diastolic function is indeterminate. No regional wall motion abnormalities noted. Right Ventricle Normal RV size. There is a pacemaker lead in the right ventricle. Normal systolic function. Atria The left atrium is mildly enlarged. Normal right atrium. No doppler evidence for ASD. Mitral Valve There is no mitral valve stenosis. No mitral valve insufficiency. Tricuspid Valve There is no tricuspid stenosis. Trivial tricuspid valve insufficiency. Unable to estimate RV systolic pressure due to insufficient tricuspid regurgitant envelope. Aortic Valve Trisinus/trileaflet aortic valve. There is no aortic stenosis. No aortic valve insufficiency. Pulmonic Valve There is no pulmonic valvular stenosis. No pulmonic valve insufficiency. Great Vessels Normal aortic root. Pericardium/Pleural No pericardial effusion. Medication Diluted definity 5.5ml given slow IV push to enhance endocardial definition. MMode/2D Measurements & Calculations LVIDd: 5.3 cm IVSd: 1.2 cm Ao root diam: 3.2 cm LVIDs: 3.4 cm LVPWd: 1.2 cm RVDd: 4.4 cm FS: 35.2 % LAV(MOD-bp): 84.6 ml LA A4 area: 23.3 cm2 LA dimension(2D): 5.4 cm LAV(MOD-bp) Indexed: 37.2 ml/m2 LAV(MOD-sp2): 78.9 ml LAV(MOD-sp4): 76.7 ml Time Measurements MV dec time: 0.17 sec Doppler Measurements & Calculations MV E max des: 137.4 cm/sec Lat Peak E' Des: 9.9 cm/sec Med Peak E' Des: 8.1 cm/sec MV A max des: 84.9 cm/sec E/E' lat: 13.8 E/E' med: 17.0 MV E/A: 1.6 Ao V2 max: 189.3 cm/sec LV V1 max: 134.1 cm/sec PA V2 max: 155.1 cm/sec Ao max P.4 mmHg LV V1 max P.2 mmHg TR max des: 334.3 cm/sec TR max P.7 mmHg ECHO/Echo Complete W/ Contrast Interpretation Summary The estimated ejection fraction is 60 %. Diastolic function is indeterminate. The left atrium is mildly enlarged. Ordering Physician: Nathan Salcido Referring Physician: [facility] Performed By: Tawnya Gregory, MEE, RVT
[2020-05-10] MEDS: Furosemide 20 MG/2 ML VIAL IV (16:55)
[2020-05-10 17:21] LABS: Bedside Glucose 180 mg/dL (70-110)
[2020-05-10] MEDS: Tamsulosin HCl 0.4 MG Capsule PO (21:07)
[2020-05-10 21:36] LABS: Bedside Glucose 151 mg/dL (70-110)
[2020-05-10 23:02] LABS: Vancomycin, Trough Level 3.7 ug/mL (5.0-15.0)
[2020-05-11] VITALS (15 sets, daily range): BP systolic 106–166; BP diastolic 48–82; PULSE 60–76; RESP 18–20; TEMP 36.5–37.1; O2SAT 85–96
[2020-05-11] MEDS: Insulin Lispro 100 UNIT/ML INSULN.PEN SC ×4 (06:52→22:24)
[2020-05-11 07:00] LABS: Bedside Glucose 154 mg/dL (70-110)
[2020-05-11] MEDS: Ipratropium/Albuterol Sulfate 3 ML AMPUL.NEB INHALATION ×4 (07:01→20:12)
[2020-05-11] MEDS: Aspirin E.C. 81 MG Tablet PO (08:18)
[2020-05-11] MEDS: Pantoprazole Sodium 40 MG Tablet PO ×2 (08:18→17:11)
[2020-05-11 08:33] LABS: Absolute Lymphocyte Count 0.67 X10^3/uL (0.83-4.51); Absolute Neutrophil Count 3.6 X10^3/uL (2.0-7.7); Basophil# 0.01 X10^3/uL; Basophil% 0.2 % (0-1); Eosinophil# 0.12 X10^3/uL; Eosinophils% 2.5 % (0-5); Hematocrit 30.7 % (40-54); Hemoglobin 8.8 g/dL (13.0-16.5); Lymphocyte # 0.67 X10^3/ul (4.0); Lymphocyte % 14.2 % (19-41); Mean Corp Hgb Conc 28.7 g/dL (32-36); Mean Corpuscular Hgb 25.1 pg (27.0-32.0); Mean Corpuscular Volume 87.7 fL (80-94); Mean Platelet Vol. 10.3 fl (6.2-12.0); Monocyte# 0.33 X10^3/uL; NRBC Flagged by Analyzer 0 % (0-5); Neutrophil # 3.58 X10^3/uL (2.7-7.7); Neutrophil % 75.9 % (47-70); Platelet Count 165 K/mm3 (150-450); RBC Distribution Width CV 16.3 % (11.6-14.6); RBC Distribution Width SD 51.9 fl (35.1-43.9); White Blood Count 4.7 K/mm3 (4.4-11.0)
[2020-05-11 08:50] LABS: Anion Gap 4 (5-15); BUN 13 mg/dL (7-18); BUN/Creat Ratio 19.8 RATIO (10-20); Calcium,Total 8.1 mg/dL (8.5-10.1); Chloride 98 mmol/L (98-107); Creatinine, Serum 0.66 mg/dL (0.70-1.30); EST Glomerular Filtration Rate 128 mL/min (>60); Est Glom Filt Rate - Afr Amer 155 mL/min (>60); Estimated Creatinine Clearance 71.99 ml/min; Glucose 156 mg/dL (74-106); Potassium 3.5 mmol/L (3.5-5.1); Sodium Level 138 mmol/L (136-145)
[2020-05-11] MEDS: Carvedilol 12.5 MG Tablet 18.75 MG PO ×2 (11:23→22:19)
[2020-05-11] MEDS: levETIRAcetam 500 MG Tablet 1000 MG PO (11:24)
[2020-05-11] MEDS: Escitalopram Oxalate 10 MG Tablet PO (11:24)
[2020-05-11] MEDS: Ranolazine 500 MG Tablet PO ×2 (11:24→22:19)
[2020-05-11] MEDS: Potassium Chloride Oral Tablet 20 MEQ PO (11:24)
[2020-05-11] MEDS: Finasteride 5 MG Tablet PO (11:25)
[2020-05-11] MEDS: Gabapentin 300 MG Capsule PO ×2 (11:25→22:19)
[2020-05-11] MEDS: Clopidogrel Bisulfate 75 MG Tablet PO (11:25)
[2020-05-11] MEDS: Furosemide 20 MG/2 ML VIAL IV (11:26)
[2020-05-11] MEDS: 0.9% Saline Lock 10 ML Syringe IV ×3 (11:28→22:07)
--- NOTE | 2020-05-11 11:33 | CASEMGMT ---
Addendum entered by Vida Karimi 05/11/20 15:06: Call to [facility] and they will accept pt. This RN CM has still not heard back from [facility] and has tried multiple times to call different RT's but no one is answering or returning call. Green sheet left on chart for HHC and O2, [facility] script left and highlighted areas need to be completed. updated on all, voices understanding. Obdulia BERRY CM Original Note: Pt/ state pt is on 2L continuous at home. Pt is good on his 2L at rest but does need 4L w/ exertion at this time. Call to Malgorzata RT at [facility] and message left for her to call this RN CM back to clarify order and see if they would like new script faxed. Per therapy, pt is good to go home with HHC set up. Pt/ would like [facility] as they have had them in the past. is also updated on 2L at rest and 4L w/ exertion and writes it all down. Order placed for SN, PT/OT and referral faxed to [facility]. CM to follow. Obdulia BERRY CM
[2020-05-11 11:40] LABS: Bedside Glucose 264 mg/dL (70-110)
--- NOTE | 2020-05-11 13:04 | PCM.PROGNOTE ---
<Jesús Staffordssica CELL CLEANER - Last Filed: 05/11/20 13:24> Patient Problems: Active and Suspected Problems (Last Reviewed 04/09/20 @ 00:[address] Carlos Alberto Fermin MD) Syncope and collapse (Acute) Severe sepsis (Acute) Right middle lobe pneumonia (Acute) Respiratory failure (Acute) Acute on chronic respiratory failure (Acute) Subjective: Patient seen and examined. Reports shortness of breath is improved. Denies chest pain. Denies other associated symptoms or complaints. - Physical Exam Vitals/I&O's: Vital Signs Temp Pulse Resp BP Pulse Ox 98.3 F 62 18 133/58 H 85 05/11/20 11:15 05/11/20 11:15 05/11/20 11:15 05/11/20 11:15 05/11/20 11:19 Oxygen Flow Rate (L/min) [At 2 REST with Oxygen] Oxygen Flow Rate (L/min) [ 4 AMBULATING with Oxygen #2] Oxygen Flow Rate (L/min) [ 3 AMBULATING with Oxygen #1] Oxygen Flow Rate (L/min) 3 Oxygen Delivery Method Nasal Cannula Weight: 239 lb 3.225 oz Body Mass Index (BMI) 34.7 Finger Stick Blood Glucose 284 Orthostatic Vital Signs Start: 05/10/20 14:43 Freq: q24h Status: Active Protocol: Activity Type Activity Date Activity User E-Sign Co-Sign Detail Recorded Client Recorded Date Recorded By Document 05/11/20 05:35 MY [id number] 05/11/20 05:50 MY 05/11/20 05:35 Orthostatic Vitals Standing -Blood Pressure (90/60-120/80) 166/82 H -Extremity Use Right Arm -Pulse Rate (60-100) 70 Sitting -Blood Pressure (90/60-120/80) 160/78 H -Extremity Use Right Arm -Pulse Rate (60-100) 67 Lying -Blood Pressure (90/60-120/80) 149/67 H -Extremity Use Right Arm -Pulse Rate (60-100) 76 Intake and Output for Last 24 Hours 05/09/20 05/10/20 05/11/20 23:59 23:59 23:59 Intake Total 307.08 / 307.08 3109.50 / 3349.50 1039.75 / 1039.75 Output Total 2475 / 3925 2300 / 2300 Balance 307.08 / 307.08 634.50 / -575.50 -1260.25 / -1260.25 General: Alert, Oriented x3, Cooperative HEENT: Atraumatic, PERRLA, EOMI, Normocephalic Neck: Supple, No JVD, Negative Carotid Bruits Lungs: Diminished, - - course lung sounds Cardiovascular: Regular rate, No murmurs Abdomen: Bowel Sounds Present, Soft, Non Tender Extremities: No clubbing, No cyanosis, No edema, Capillary Refill Less than 3 Seconds Skin: No rashes, No breakdown, - - Venous stasis changes bilateral lower extremities Musculoskeletal: No Tenderness to Palpation of Joints or Extremities Neurological: Cranial nerves II-XII grossly intact, Neuro grossly intact Psych/Mental Status: Normal Affect, Appropriate Microbiology Past 72 Hours 05/10/20 02:30 Urine, Clean Catch Legionella Antigen - Final 05/10/20 02:30 Urine, Clean Catch Streptococcus pneumoniae Antigen (M - Final 05/09/20 21:55 Mucosa - Nasopharyngeal Respiratory Panel (PCR) - Final 05/09/20 21:05 Mucosa - Nose SARS-CoV-2 Antigen (Rapid) - Final Laboratory Results 05/10/20 16:16: Troponin I < 0.015 05/10/20 16:40: POC Glucose 180 H 05/10/20 18:24: Troponin I < 0.015 05/10/20 21:06: POC Glucose 151 H 05/10/20 22:21: Vancomycin Trough 3.7 L 05/10/20 22:21: Troponin I 0.015 05/11/20 06:50: POC Glucose 154 H 05/11/20 08:08: WBC 4.7, RBC 3.50 L, Hgb 8.8 L, Hct 30.7 L, MCV 87.7, MCH 25.1 L, MCHC 28.7 L, RDW Std Deviation 51.9 H, RDW Coeff of Cinda 16.3 H, Plt Count 165, MPV 10.3, Immature Gran % (Auto) 0.200, Neut % (Auto) 75.9 H, Lymph % (Auto) 14.2 L, [place] % (Auto) 7.0, Eos % (Auto) 2.5, Baso % (Auto) 0.2, Absolute Neuts (auto) 3.6, Absolute Lymphs (auto) 0.67 L, Nucleated RBC % 0 05/11/20 08:08: Sodium 138, Potassium 3.5, Chloride 98, Carbon Dioxide 36.0 H, Anion Gap 4 L, BUN 13, Creatinine 0.66 L, Estim Creat Clear Calc 71.99, Est GFR (MDRD) Af Amer 155, Est GFR (MDRD) Non-Af 128, BUN/Creatinine Ratio 19.8, Glucose 156 H, Calcium 8.1 L 05/11/20 11:36: POC Glucose 264 H Current Medications Acetaminophen (Acetaminophen 325 Mg Tablet) 650 mg PO Q6H PRN PRN PRN Reason: Pain Score 1-10/Temp > 100.7 F Last Admin: 05/09/20 23:20 Dose: 650 mg Documented by: Al Hydroxide/Mg Hydroxide (Mag Hydrox/Al Hydrox/Simeth 30 Ml Udc) 30 ml PO Q6H PRN PRN PRN Reason: Gastric Burning Albuterol Sulfate (Albuterol 2.5 Mg/3 Ml Vial.Neb.) 2.5 mg INHALATION Q2H PRN PRN PRN Reason: Dyspnea, wheezing Albuterol/Ipratropium (Ipratropium/Albuterol Sulfate 3 Ml Ampul.Neb) 3 ml INHALATION Q4HWA.RT [facility] Last Admin: 05/11/20 11:04 Dose: 3 ml Documented by: Aspirin (Aspirin E.C. 81 Mg Tablet) 81 mg PO DAILY@0800 [facility] Last Admin: 05/11/20 08:18 Dose: 81 mg Documented by: Atorvastatin Calcium (Atorvastatin Calcium 80 Mg Tablet) 80 mg PO QHS [facility] Carvedilol (Carvedilol 12.5 Mg Tablet) 18.75 mg PO BID [facility] Last Admin: 05/11/20 11:23 Dose: 18.75 mg Documented by: Clopidogrel Bisulfate (Clopidogrel Bisulfate 75 Mg Tablet) 75 mg PO DAILY [facility] Last Admin: 05/11/20 11:25 Dose: 75 mg Documented by: Enoxaparin Sodium (Enoxaparin 40 Mg/0.4 Ml Syringe) 40 mg SC DAILY [facility] Last Admin: 05/11/20 11:30 Dose: Not Given Documented by: Escitalopram Oxalate (Escitalopram Oxalate 10 Mg Tablet) 10 mg PO DAILY [facility] Last Admin: 05/11/20 11:24 Dose: 10 mg Documented by: Finasteride (Finasteride 5 Mg Tablet) 5 mg PO DAILY [facility] Last Admin: 05/11/20 11:25 Dose: 5 mg Documented by: Furosemide (Furosemide 20 Mg/2 Ml Vial) 20 mg IV DAILY [facility] Last Admin: 05/11/20 11:26 Dose: 20 mg Documented by: Gabapentin (Gabapentin 300 Mg Capsule) 300 mg PO BID [facility] Last Admin: 05/11/20 11:25 Dose: 300 mg Documented by: Guaifenesin (Guaifenesin 10 Ml Udc (200mg/10ml)) 10 ml PO Q4H PRN PRN PRN Reason: COUGH Hydralazine HCl (Hydralazine 20 Mg/Ml Vial) 10 mg IV Q4H PRN PRN PRN Reason: SBP > 160 Piperacillin Sod/Tazobactam (Sod 3.375 gm/ Sodium Chloride) 50 mls @ 12.5 mls/hr IV Q8 [facility] Last Infusion: 05/11/20 10:15 Dose: Infused Documented by: Sodium Chloride () 250 mls @ 15 mls/hr IV .[id number] PRN PRN Reason: Saline Flush Last Infusion: 05/11/20 10:15 Dose: 0 mls/hr Documented by: Sodium Chloride () 250 mls @ 15 mls/hr IV .[id number] PRN PRN Reason: Additional IVPB Infusion Insulin Human Lispro (Insulin Lispro 100 Unit/Ml Insuln.Pen) 0 unit SC ACHS [facility]; Protocol Last Admin: 05/11/20 11:40 Dose: 3 u Documented by: Insulin Human Regular (Insulin U-500 Units/Ml Pen) 110 units SC BREAKFAST [facility] Insulin Human Regular (Insulin U-500 Units/Ml Pen) 110 units SC QHS [facility] Levetiracetam (Levetiracetam 500 Mg Tablet) 1,000 mg PO BID [facility] Last Admin: 05/11/20 11:24 Dose: 1,000 mg Documented by: Nitroglycerin (Nitroglycerin (Inpatient Use) 0.4 Mg Tab.Subl) 0.4 mg SL Q5M PRN PRN Reason: CARDIAC/CHEST PAIN Pantoprazole Sodium ([facility]oprazole Sodium 40 Mg [facility]t) [facility] Last Admin: 05/11/20 08:18 Dose: 40 mg Documented by: Potassium Chloride (Potassium Chloride Oral Tablet 20 Meq) 20 meq PO DAILY [facility] Last Admin: 05/11/20 11:24 Dose: 20 meq Documented by: Prochlorperazine Edisylate (Prochlorperazine 10 Mg/2 Ml Vial) 5 mg IV Q4H PRN PRN PRN Reason: Breakthrough Nausea/Vomiting Psyllium Hydrophilic Mucilloid (Psyllium 1 Packet) 1 packet PO DAILY PRN PRN PRN Reason: Constipation Ranolazine (Ranolazine 500 Mg Tablet) 500 mg PO BID [facility] Last Admin: 05/11/20 11:24 Dose: 500 mg Documented by: Senna/Docusate Sodium (Senna/Docusate Sodium 1 Tablet) 2 tablet PO BID PRN PRN PRN Reason: Constipation Sodium Chloride (0.9% Saline Lock 10 Ml Syringe) 10 - 40 ml IV UD PRN PRN Reason: SALINE FLUSH Last Admin: 05/11/20 11:28 Dose: 20 ml Documented by: Tamsulosin HCl (Tamsulosin Hcl 0.4 Mg Capsule) 0.4 mg PO QHS [facility] Last Admin: 05/10/20 21:07 Dose: 0.4 mg Documented by: Throat Lozenges (Benzocaine/Menthol 1 Lozenge) 1 lozenge MUCOUS MEM Q2H PRN PRN PRN Reason: SORE THROAT Medical Necessity - Tobacco Use Smoking Status: Former smoker Tobacco Use: Non-smoker Assessment/Plan All Active Problems (Last Reviewed 04/09/20 @ 00:[address] Carlos Alberto Fermin MD) Syncope and collapse (Acute) Acute electrocardiogram changes (Acute) Severe sepsis (Acute) Right middle lobe pneumonia (Acute) Respiratory failure (Acute) Acute on chronic respiratory failure (Acute) History of coronary artery stent placement (Resolved) H/O coronary artery bypass surgery (Resolved) Abnormal EKG (Acute) 1. Severe sepsis secondary to community-acquired pneumonia with bilateral pleural effusions-improved. Continue IV Zosyn. Repeat oxygen testing prior to discharge. Possible discharge home tomorrow pending continued improvement and cardiology clearance for discharge. 2. Acute on chronic heart failure with preserved ejection fraction-IV Lasix. Strict I&O. Daily weight. Repeat echo pending. Cardiology following. 3. Syncope-troponin negative. Orthostatic vitals negative. Pacemaker interrogation completed 05/10/2020 without significant abnormalities. Echocardiogram completed, report pending. Per cardiology, may need repeat stress test inpatient versus outpatient. 4. Chronic hypoxic respiratory failure-on 2 L continuously at home. Will need repeat home oxygen testing prior to discharge. 5. History of CVA with recurrent aphasia-Continue aspirin, statin. 6. CAD with history of CABG and stents-continue aspirin, statin, carvedilol, Ranexa. 7. Type 2 diabetes mellitus-continue home insulin regimen. Accu-Cheks with sliding scale insulin. 8. Hypertension-stable, continue carvedilol, Lasix. 9. Hyperlipidemia-continue high-dose statin. 10. EKATERINA-continue home BiPAP regimen. 11. BPH-continue Flomax, proscar. 12. History of seizure disorder? Previously on Keppra. No longer taking. 13. Anxiety/depression-continue Lexapro. 14. Morbid obesity- encouraged diet and lifestyle modifications. DVT prophylaxis-Lovenox subcu This patient was seen by KELLY Dyson under the supervision of Dr. Barnes. <Patito Barnes - Last Filed: 05/11/20 15:00> - Physical Exam Vitals/I&O's: Vital Signs Temp Pulse Resp BP Pulse Ox 98.3 F 62 18 133/58 H 85 05/11/20 11:15 05/11/20 11:15 05/11/20 11:15 05/11/20 11:15 05/11/20 11:19 Oxygen Flow Rate (L/min) [At 2 REST with Oxygen] Oxygen Flow Rate (L/min) [ 4 AMBULATING with Oxygen #2] Oxygen Flow Rate (L/min) [ 3 AMBULATING with Oxygen #1] Oxygen Flow Rate (L/min) 2 Oxygen Delivery Method Nasal Cannula Weight: 239 lb 3.225 oz Body Mass Index (BMI) 34.7 Finger Stick Blood Glucose 284 Orthostatic Vital Signs Start: 05/10/20 14:43 Freq: q24h Status: Active Protocol: Activity Type Activity Date Activity User E-Sign Co-Sign Detail Recorded Client Recorded Date Recorded By Document 05/11/20 05:35 MY [id number] 05/11/20 05:50 MY 05/11/20 05:35 Orthostatic Vitals Standing -Blood Pressure (90/60-120/80) 166/82 H -Extremity Use Right Arm -Pulse Rate (60-100) 70 Sitting -Blood Pressure (90/60-120/80) 160/78 H -Extremity Use Right Arm -Pulse Rate (60-100) 67 Lying -Blood Pressure (90/60-120/80) 149/67 H -Extremity Use Right Arm -Pulse Rate (60-100) 76 Intake and Output for Last 24 Hours 05/09/20 05/10/20 05/11/20 23:59 23:59 23:59 Intake Total 307.08 / 307.08 3109.50 / 3349.50 1039.75 / 1039.75 Output Total 2475 / 3925 2300 / 2300 Balance 307.08 / 307.08 634.50 / -575.50 -1260.25 / -1260.25 Microbiology Past 72 Hours 05/10/20 02:30 Urine, Clean Catch Legionella Antigen - Final 05/10/20 02:30 Urine, Clean Catch Streptococcus pneumoniae Antigen (M - Final 05/09/20 21:55 Mucosa - Nasopharyngeal Respiratory Panel (PCR) - Final 05/09/20 21:05 Mucosa - Nose SARS-CoV-2 Antigen (Rapid) - Final Laboratory Results 05/10/20 16:16: Troponin I < 0.015 05/10/20 16:40: POC Glucose 180 H 05/10/20 18:24: Troponin I < 0.015 05/10/20 21:06: POC Glucose 151 H 05/10/20 22:21: Vancomycin Trough 3.7 L 05/10/20 22:21: Troponin I 0.015 05/11/20 06:50: POC Glucose 154 H 05/11/20 08:08: WBC 4.7, RBC 3.50 L, Hgb 8.8 L, Hct 30.7 L, MCV 87.7, MCH 25.1 L, MCHC 28.7 L, RDW Std Deviation 51.9 H, RDW Coeff of Cinda 16.3 H, Plt Count 165, MPV 10.3, Immature Gran % (Auto) 0.200, Neut % (Auto) 75.9 H, Lymph % (Auto) 14.2 L, [place] % (Auto) 7.0, Eos % (Auto) 2.5, Baso % (Auto) 0.2, Absolute Neuts (auto) 3.6, Absolute Lymphs (auto) 0.67 L, Nucleated RBC % 0 05/11/20 08:08: Sodium 138, Potassium 3.5, Chloride 98, Carbon Dioxide 36.0 H, Anion Gap 4 L, BUN 13, Creatinine 0.66 L, Estim Creat Clear Calc 71.99, Est GFR (MDRD) Af Amer 155, Est GFR (MDRD) Non-Af 128, BUN/Creatinine Ratio 19.8, Glucose 156 H, Calcium 8.1 L 05/11/20 11:36: POC Glucose 264 H Current Medications Acetaminophen (Acetaminophen 325 Mg Tablet) 650 mg PO Q6H PRN PRN PRN Reason: Pain Score 1-10/Temp > 100.7 F Last Admin: 05/09/20 23:20 Dose: 650 mg Documented by: Al Hydroxide/Mg Hydroxide (Mag Hydrox/Al Hydrox/Simeth 30 Ml Udc) 30 ml PO Q6H PRN PRN PRN Reason: Gastric Burning Albuterol Sulfate (Albuterol 2.5 Mg/3 Ml Vial.Neb.) 2.5 mg INHALATION Q2H PRN PRN PRN Reason: Dyspnea, wheezing Albuterol/Ipratropium (Ipratropium/Albuterol Sulfate 3 Ml Ampul.Neb) 3 ml INHALATION Q4HWA.RT [facility] Last Admin: 05/11/20 11:04 Dose: 3 ml Documented by: Aspirin (Aspirin E.C. 81 Mg Tablet) 81 mg PO DAILY@0800 [facility] Last Admin: 05/11/20 08:18 Dose: 81 mg Documented by: Atorvastatin Calcium (Atorvastatin Calcium 80 Mg Tablet) 80 mg PO QHS [facility] Carvedilol (Carvedilol 12.5 Mg Tablet) 18.75 mg PO BID [facility] Last Admin: 05/11/20 11:23 Dose: 18.75 mg Documented by: Clopidogrel Bisulfate (Clopidogrel Bisulfate 75 Mg Tablet) 75 mg PO DAILY [facility] Last Admin: 05/11/20 11:25 Dose: 75 mg Documented by: Enoxaparin Sodium (Enoxaparin 40 Mg/0.4 Ml Syringe) 40 mg SC DAILY [facility] Last Admin: 05/11/20 11:30 Dose: Not Given Documented by: Escitalopram Oxalate (Escitalopram Oxalate 10 Mg Tablet) 10 mg PO DAILY [facility] Last Admin: 05/11/20 11:24 Dose: 10 mg Documented by: Finasteride (Finasteride 5 Mg Tablet) 5 mg PO DAILY [facility] Last Admin: 05/11/20 11:25 Dose: 5 mg Documented by: Furosemide (Furosemide 20 Mg/2 Ml Vial) 20 mg IV DAILY [facility] Last Admin: 05/11/20 11:26 Dose: 20 mg Documented by: Gabapentin (Gabapentin 300 Mg Capsule) 300 mg PO BID [facility] Last Admin: 05/11/20 11:25 Dose: 300 mg Documented by: Guaifenesin (Guaifenesin 10 Ml Udc (200mg/10ml)) 10 ml PO Q4H PRN PRN PRN Reason: COUGH Hydralazine HCl (Hydralazine 20 Mg/Ml Vial) 10 mg IV Q4H PRN PRN PRN Reason: SBP > 160 Piperacillin Sod/Tazobactam (Sod 3.375 gm/ Sodium Chloride) 50 mls @ 12.5 mls/hr IV Q8 [facility] Last Admin: 05/11/20 14:27 Dose: 12.5 mls/hr Documented by: Sodium Chloride () 250 mls @ 15 mls/hr IV .[id number] PRN PRN Reason: Saline Flush Last Infusion: 05/11/20 14:33 Dose: 0 mls/hr Documented by: Sodium Chloride () 250 mls @ 15 mls/hr IV .[id number] PRN PRN Reason: Additional IVPB Infusion Insulin Human Lispro (Insulin Lispro 100 Unit/Ml Insuln.Pen) 0 unit SC ACHS [facility]; Protocol Last Admin: 05/11/20 11:40 Dose: 3 u Documented by: Insulin Human Regular (Insulin U-500 Units/Ml Pen) 110 units SC BREAKFAST [facility] Insulin Human Regular (Insulin U-500 Units/Ml Pen) 110 units SC QHS [facility] Nitroglycerin (Nitroglycerin (Inpatient Use) 0.4 Mg Tab.Subl) 0.4 mg SL Q5M PRN PRN Reason: CARDIAC/CHEST PAIN Pantoprazole Sodium (Pantoprazole Sodium 40 Mg Tablet) 40 mg PO BIDCM [facility] Last Admin: 05/11/20 08:18 Dose: 40 mg Documented by: Potassium Chloride (Potassium Chloride Oral Tablet 20 Meq) 20 meq PO DAILY [facility] Last Admin: 05/11/20 11:24 Dose: 20 meq Documented by: Prochlorperazine Edisylate (Prochlorperazine 10 Mg/2 Ml Vial) 5 mg IV Q4H PRN PRN PRN Reason: Breakthrough Nausea/Vomiting Psyllium Hydrophilic Mucilloid (Psyllium 1 Packet) 1 packet PO DAILY PRN PRN PRN Reason: Constipation Ranolazine (Ranolazine 500 Mg Tablet) 500 mg PO BID [facility] Last Admin: 05/11/20 11:24 Dose: 500 mg Documented by: Senna/Docusate Sodium (Senna/Docusate Sodium 1 Tablet) 2 tablet PO BID PRN PRN PRN Reason: Constipation Sodium Chloride (0.9% Saline Lock 10 Ml Syringe) 10 - 40 ml IV UD PRN PRN Reason: SALINE FLUSH Last Admin: 05/11/20 14:29 Dose: 10 ml Documented by: Tamsulosin HCl (Tamsulosin Hcl 0.4 Mg Capsule) 0.4 mg PO QHS [facility] Last Admin: 05/10/20 21:07 Dose: 0.4 mg Documented by: Throat Lozenges (Benzocaine/Menthol 1 Lozenge) 1 lozenge MUCOUS MEM Q2H PRN PRN PRN Reason: SORE THROAT Assessment/Plan Patient seen by Candice Stafford NP-Wayne under my supervision Patient seen and examined. He feels better today, though still short of breath. Review of systems is otherwise negative. He is on 2L of oxygen. O/E: Vital Signs Temp Pulse Resp BP Pulse Ox 98.3 F 62 18 133/58 H 85 05/11/20 11:15 05/11/20 11:15 05/11/20 11:15 05/11/20 11:15 05/11/20 11:19 General: Alert, Oriented x3, Cooperative, No apparent distress HEENT: Atraumatic, PERRLA, EOMI, Normocephalic, - - Oral: Dry Mucosa Neck: Supple, No JVD, Negative Carotid Bruits Lungs: - - has coarse crackles in mid and lower lung flores. On 2L of oxygen by nasal canula Cardiovascular: Regular rate, Regular Rhythm, Normal S1, Normal S2, No murmurs Abdomen: Bowel Sounds Present, Soft, Non Tender, Non-Distended, No Hepato-splenomegaly Extremities: No clubbing, No cyanosis, No edema, Capillary Refill Less than 3 Seconds Skin: No rashes, No breakdown Musculoskeletal: No Tenderness to Palpation of Joints or Extremities Lymphatic: No Cervical, Supraclavicular, or Inguinal Adenopathy Neurological: Cranial nerves II-XII grossly intact, Neuro grossly intact, Motor Exam 5/5 strength throughout Psych/Mental Status: Normal Affect, Appropriate, Alert and oriented to time, place, person, mood and affect Plan is to continue diuresis with IV Lasix. Cardiology consulted. Pacer was interrogated and did not reveal any tacky or bradycardia cardia arrhythmias which could explain his syncope. 2D echo ordered. Per cardiology, is reasonable to repeat a stress test as well. Continue IV Zosyn for aspiration pneumonia. Rest as per Candice Stafford CELL CLEANER-C's note, which I have reviewed and endorsed. Inpatient E&M: [id number] Subs Hosp L2
--- NOTE | 2020-05-11 16:14 | PN.CARD_ITS ---
Subjectve: SOB is better. Objective: Vital Signs Temp Pulse Resp BP Pulse Ox 98.3 F 63 18 114/48 L 93 05/11/20 11:15 05/11/20 15:25 05/11/20 15:25 05/11/20 15:25 05/11/20 15:25 Oxygen Flow Rate (L/min) [At 2 REST with Oxygen] Oxygen Flow Rate (L/min) [ 4 AMBULATING with Oxygen #2] Oxygen Flow Rate (L/min) [ 3 AMBULATING with Oxygen #1] Oxygen Flow Rate (L/min) 2 Oxygen Delivery Method Nasal Cannula Weight: 239 lb 3.225 oz Body Mass Index (BMI) 34.7 Finger Stick Blood Glucose 284 Orthostatic Vital Signs Start: 05/10/20 14:43 Freq: q24h Status: Active Protocol: Activity Type Activity Date Activity User E-Sign Co-Sign Detail Recorded Client Recorded Date Recorded By Document 05/11/20 05:35 MY [id number] 05/11/20 05:50 MY 05/11/20 05:35 Orthostatic Vitals Standing -Blood Pressure (90/60-120/80) 166/82 H -Extremity Use Right Arm -Pulse Rate (60-100) 70 Sitting -Blood Pressure (90/60-120/80) 160/78 H -Extremity Use Right Arm -Pulse Rate (60-100) 67 Lying -Blood Pressure (90/60-120/80) 149/67 H -Extremity Use Right Arm -Pulse Rate (60-100) 76 Intake and Output for Last 24 Hours 05/09/20 05/10/20 05/11/20 23:59 23:59 23:59 Intake Total 307.08 / 307.08 3109.50 / 3349.50 1039.75 / 1039.75 Output Total 2475 / 3925 2300 / 2300 Balance 307.08 / 307.08 634.50 / -575.50 -1260.25 / -1260.25 General: Awake, Alert, Oriented x 3 HEENT: Atraumatic Oral: Moist Mucosa Lungs: Rales - Lonnie Bases Cardiovascular: Regular Rhythm Abdomen: Soft Extremities: No edema Skin: No Rashes 05/10/20 16:16: Troponin I < 0.015 05/10/20 18:24: Troponin I < 0.015 05/10/20 22:21: Troponin I 0.015 05/11/20 08:08: WBC 4.7, RBC 3.50 L, Hgb 8.8 L, Hct 30.7 L, MCV 87.7, MCH 25.1 L , MCHC 28.7 L, Plt Count 165, MPV 10.3, Immature Gran % (Auto) 0.200, Neut % (Auto) 75.9 H, Lymph % (Auto) 14.2 L, [place] % (Auto) 7.0, Eos % (Auto) 2.5, Baso % (Auto) 0.2, Absolute Neuts (auto) 3.6, Nucleated RBC % 0 05/11/20 08:08: Sodium 138, Potassium 3.5, Chloride 98, Carbon Dioxide 36.0 H, Anion Gap 4 L, BUN 13, Creatinine 0.66 L, Est GFR (MDRD) Af Amer 155, Est GFR (MDRD) Non-Af 128, BUN/Creatinine Ratio 19.8, Glucose 156 H, Calcium 8.1 L Rhythm: EKG: ECHO: Stress Test: Cardiac Cath: PCI: CT Surgery: Holter monitor: EPS: PPM: CXR: Chest CT Scan: Medical Necessity - Tobacco Use Smoking Status: Former smoker Tobacco Use: Non-smoker Assessment/Plan 1. Shortness of breath: Repeat echo revealed preserved EF. Patient says her shortness of breath is slightly better. It is reasonable to continue IV Lasix for another day and switch to p.o. tomorrow. 2. Syncope: No evidence of arrhythmias being the etiology for his syncope. At this time it is not clear if this is of cardiac origin. Patient has had CVAs in the past and neurologic etiology can also be considered. 3. CAD: Continue present management. Will be reasonable to repeat a stress test as an outpatient.
[2020-05-11 17:25] LABS: Bedside Glucose 174 mg/dL (70-110)
[2020-05-11] MEDS: Tamsulosin HCl 0.4 MG Capsule PO (22:19)
[2020-05-11] MEDS: Atorvastatin Calcium 80 MG Tablet PO (22:19)
[2020-05-11] MEDS: Insulin U-500 UNITS/ML PEN 110 UNITS SC (22:23)
[2020-05-11 22:40] LABS: Bedside Glucose 226 mg/dL (70-110)
[2020-05-12] VITALS (9 sets, daily range): BP systolic 117–134; BP diastolic 58–64; PULSE 60–64; RESP 18–20; TEMP 36.4–36.6; O2SAT 94–96
--- NOTE | 2020-05-12 06:34 | PN_ITS ---
Patient Problems: Active and Suspected Problems (Last Reviewed 04/09/20 @ 00:[address] Carlos Alberto Fermin MD) Syncope and collapse (Acute) Severe sepsis (Acute) Right middle lobe pneumonia (Acute) Respiratory failure (Acute) Acute on chronic respiratory failure (Acute) Subjective: The patient was seen and examined at the bedside this morning. Events from the last 24 hours have been reviewed. The patient is currently afebrile, hemodynamically stable and maintaining appropriate oxygen saturations on his nocturnal Pap therapy. The patient remains on IV diuretic therapy. The patient was able to be weaned to 2 L/min of oxygen yesterday. His breathing quality has overall improved. Objective: The patient's most recent lab work, culture data and imaging studies have all been personally reviewed. Surface echocardiogram from March 2020 revealed normal LV size with an ejection fraction of 55%. Right ventricular systolic pressure was estimated to be 30 mmHg. Rapid coronavirus antigen testing was negative. Respiratory viral panel was negative. Strep and urine Legionella antigens were negative. - Physical Exam Vitals/I&O's: Vital Signs Temp Pulse Resp BP Pulse Ox 97.5 F L 61 20 H 118/64 94 05/12/20 03:20 05/12/20 03:20 05/12/20 03:20 05/12/20 03:20 05/12/20 03:20 Oxygen Flow Rate (L/min) [At 2 REST with Oxygen] Oxygen Flow Rate (L/min) [ 4 AMBULATING with Oxygen #2] Oxygen Flow Rate (L/min) [ 3 AMBULATING with Oxygen #1] Oxygen Flow Rate (L/min) 2 Oxygen Delivery Method CPAP Weight: 237 lb 10.533 oz Body Mass Index (BMI) 34.7 Finger Stick Blood Glucose 284 Intake and Output for Last 24 Hours 05/10/20 05/11/20 05/12/20 23:59 23:59 23:59 Intake Total 3109.50 / 3349.50 1529.75 / 1829.75 601.25 / 601.25 Output Total 2475 / 3925 2650 / 2650 250 / 250 Balance 634.50 / -575.50 -1120.25 / -820.25 351.25 / 351.25 General: Alert, Cooperative, No apparent distress HEENT: Atraumatic, Normocephalic Oral: Moist Mucosa Neck: Supple, No Nodes, Trachea Midline Lungs: No rhonchi, No wheeze, No rales, Diminished Cardiovascular: Regular rate, Regular Rhythm Abdomen: Bowel Sounds Present, Soft, Non Tender, Obese Extremities: No clubbing, No cyanosis Skin: No breakdown, - - Venous stasis dermatitis Musculoskeletal: No Muscle Wasting Lymphatic: No Cervical, Supraclavicular, or Inguinal Adenopathy Neurological: Neuro grossly intact Psych/Mental Status: Normal Affect Labs (Last 48 Hours) 05/10/20 05/10/20 05/10/20 08:15 12:30 16:16 WBC RBC Hgb Hct MCV MCH MCHC RDW Std Deviation RDW Coeff of Cinda Plt Count MPV Immature Gran % (Auto) Neut % (Auto) Lymph % (Auto) Hill % (Auto) Eos % (Auto) Baso % (Auto) Absolute Neuts (auto) Absolute Lymphs (auto) Nucleated RBC % Sodium Potassium Chloride Carbon Dioxide Anion Gap BUN Creatinine Estim Creat Clear Calc Est GFR (MDRD) Af Amer Est GFR (MDRD) Non-Af BUN/Creatinine Ratio Glucose Calcium Troponin I < 0.015 B-Natriuretic Peptide 178.5 H Vancomycin Trough POC Glucose 213 H 05/10/20 05/10/20 05/10/20 16:40 18:24 21:06 WBC RBC Hgb Hct MCV MCH MCHC RDW Std Deviation RDW Coeff of Cinda Plt Count MPV Immature Gran % (Auto) Neut % (Auto) Lymph % (Auto) Hill % (Auto) Eos % (Auto) Baso % (Auto) Absolute Neuts (auto) Absolute Lymphs (auto) Nucleated RBC % Sodium Potassium Chloride Carbon Dioxide Anion Gap BUN Creatinine Estim Creat Clear Calc Est GFR (MDRD) Af Amer Est GFR (MDRD) Non-Af BUN/Creatinine Ratio Glucose Calcium Troponin I < 0.015 B-Natriuretic Peptide Vancomycin Trough POC Glucose 180 H 151 H 05/10/20 05/10/20 05/11/20 22:21 22:21 06:50 WBC RBC Hgb Hct MCV MCH MCHC RDW Std Deviation RDW Coeff of Cinda Plt Count MPV Immature Gran % (Auto) Neut % (Auto) Lymph % (Auto) Hill % (Auto) Eos % (Auto) Baso % (Auto) Absolute Neuts (auto) Absolute Lymphs (auto) Nucleated RBC % Sodium Potassium Chloride Carbon Dioxide Anion Gap BUN Creatinine Estim Creat Clear Calc Est GFR (MDRD) Af Amer Est GFR (MDRD) Non-Af BUN/Creatinine Ratio Glucose Calcium Troponin I 0.015 B-Natriuretic Peptide Vancomycin Trough 3.7 L POC Glucose 154 H 05/11/20 05/11/20 05/11/20 08:08 08:08 11:36 WBC 4.7 RBC 3.50 L Hgb 8.8 L Hct 30.7 L MCV 87.7 MCH 25.1 L MCHC 28.7 L RDW Std Deviation 51.9 H RDW Coeff of Cinda 16.3 H Plt Count 165 MPV 10.3 Immature Gran % (Auto) 0.200 Neut % (Auto) 75.9 H Lymph % (Auto) 14.2 L Hill % (Auto) 7.0 Eos % (Auto) 2.5 Baso % (Auto) 0.2 Absolute Neuts (auto) 3.6 Absolute Lymphs (auto) 0.67 L Nucleated RBC % 0 Sodium 138 Potassium 3.5 Chloride 98 Carbon Dioxide 36.0 H Anion Gap 4 L BUN 13 Creatinine 0.66 L Estim Creat Clear Calc 71.99 Est GFR (MDRD) Af Amer 155 Est GFR (MDRD) Non-Af 128 BUN/Creatinine Ratio 19.8 Glucose 156 H Calcium 8.1 L Troponin I B-Natriuretic Peptide Vancomycin Trough POC Glucose 264 H 05/11/20 05/11/20 17:06 21:49 WBC RBC Hgb Hct MCV MCH MCHC RDW Std Deviation RDW Coeff of Cinda Plt Count MPV Immature Gran % (Auto) Neut % (Auto) Lymph % (Auto) Hill % (Auto) Eos % (Auto) Baso % (Auto) Absolute Neuts (auto) Absolute Lymphs (auto) Nucleated RBC % Sodium Potassium Chloride Carbon Dioxide Anion Gap BUN Creatinine Estim Creat Clear Calc Est GFR (MDRD) Af Amer Est GFR (MDRD) Non-Af BUN/Creatinine Ratio Glucose Calcium Troponin I B-Natriuretic Peptide Vancomycin Trough POC Glucose 174 H 226 H Microbiology 05/10/20 02:30 Urine, Clean Catch Legionella Antigen - Final 05/10/20 02:30 Urine, Clean Catch Streptococcus pneumoniae Antigen (M - Final Clinical Impression(s) from Imaging Studies Chest X-Ray 05/09/20 17:50 IMPRESSION: Increased interstitial markings may represent edema and/or infection. Electronically Signed: Eric Martinez MD at 18:53 EDT Tel , Service support , Chest CTA 05/09/20 18:32 IMPRESSION: 1. No evidence of pulmonary embolus. 2. No aortic dissection or aneurysm. 3. Bilateral pleural effusions and atelectasis not previously noted. 4. Vague ground glass infiltrates in right middle lobe not previously noted. 5. Otherwise stable findings. Electronically Signed: Henrry Baron DO at 19:45 EDT Tel [phone], Service support , Echocardiogram 05/10/20 15:44 Interpretation Summary The estimated ejection fraction is 60 %. Diastolic function is indeterminate. The left atrium is mildly enlarged. Ordering Physician: Nathan Salcido Referring Physician: [facility] Performed By: Tawnya Gregory, MEE, RVT Current Medications Acetaminophen (Acetaminophen 325 Mg Tablet) 650 mg PO Q6H PRN PRN PRN Reason: Pain Score 1-10/Temp > 100.7 F Last Admin: 05/09/20 23:20 Dose: 650 mg Documented by: Al Hydroxide/Mg Hydroxide (Mag Hydrox/Al Hydrox/Simeth 30 Ml Udc) 30 ml PO Q6H PRN PRN PRN Reason: Gastric Burning Albuterol Sulfate (Albuterol 2.5 Mg/3 Ml Vial.Neb.) 2.5 mg INHALATION Q2H PRN PRN PRN Reason: Dyspnea, wheezing Albuterol/Ipratropium (Ipratropium/Albuterol Sulfate 3 Ml Ampul.Neb) 3 ml INHALATION Q4HWA.RT [facility] Last Admin: 05/11/20 20:12 Dose: 3 ml Documented by: Aspirin (Aspirin E.C. 81 Mg Tablet) 81 mg PO DAILY@0800 [facility] Last Admin: 05/11/20 08:18 Dose: 81 mg Documented by: Atorvastatin Calcium (Atorvastatin Calcium 80 Mg Tablet) 80 mg PO QHS [facility] Last Admin: 05/11/20 22:19 Dose: 80 mg Documented by: Carvedilol (Carvedilol 12.5 Mg Tablet) 18.75 mg PO BID [facility] Last Admin: 05/11/20 22:19 Dose: 18.75 mg Documented by: Clopidogrel Bisulfate (Clopidogrel Bisulfate 75 Mg Tablet) 75 mg PO DAILY [facility] Last Admin: 05/11/20 11:25 Dose: 75 mg Documented by: Enoxaparin Sodium (Enoxaparin 40 Mg/0.4 Ml Syringe) 40 mg SC DAILY [facility] Last Admin: 05/11/20 11:30 Dose: Not Given Documented by: Escitalopram Oxalate (Escitalopram Oxalate 10 Mg Tablet) 10 mg PO DAILY [facility] Last Admin: 05/11/20 11:24 Dose: 10 mg Documented by: Finasteride (Finasteride 5 Mg Tablet) 5 mg PO DAILY [facility] Last Admin: 05/11/20 11:25 Dose: 5 mg Documented by: Furosemide (Furosemide 20 Mg/2 Ml Vial) 20 mg IV DAILY [facility] Last Admin: 05/11/20 11:26 Dose: 20 mg Documented by: Gabapentin (Gabapentin 300 Mg Capsule) 300 mg PO BID [facility] Last Admin: 05/11/20 22:19 Dose: 300 mg Documented by: Guaifenesin (Guaifenesin 10 Ml Udc (200mg/10ml)) 10 ml PO Q4H PRN PRN PRN Reason: COUGH Hydralazine HCl (Hydralazine 20 Mg/Ml Vial) 10 mg IV Q4H PRN PRN PRN Reason: SBP > 160 Piperacillin Sod/Tazobactam (Sod 3.375 gm/ Sodium Chloride) 50 mls @ 12.5 mls/hr IV Q8 [facility] Last Admin: 05/12/20 05:26 Dose: 12.5 mls/hr Documented by: Sodium Chloride () 250 mls @ 15 mls/hr IV .[id number] PRN PRN Reason: Saline Flush Last Infusion: 05/12/20 05:25 Dose: 0 mls/hr Documented by: Sodium Chloride () 250 mls @ 15 mls/hr IV .[id number] PRN PRN Reason: Additional IVPB Infusion Insulin Human Lispro (Insulin Lispro 100 Unit/Ml Insuln.Pen) 0 unit SC ACHS [facility]; Protocol Last Admin: 05/11/20 22:24 Dose: 2 u Documented by: Insulin Human Regular (Insulin U-500 Units/Ml Pen) 110 units SC BREAKFAST [facility] Insulin Human Regular (Insulin U-500 Units/Ml Pen) 110 units SC QHS [facility] Last Admin: 05/11/20 22:23 Dose: 110 u Documented by: Nitroglycerin (Nitroglycerin (Inpatient Use) 0.4 Mg Tab.Subl) 0.4 mg SL Q5M PRN PRN Reason: CARDIAC/CHEST PAIN Pantoprazole Sodium ([facility] S[facility] 40 Mg [facility]) [facility] Admin: 05/11/20 17:11 Dose: 40 mg Documented by: Potassium Chloride (Potassium Chloride Oral Tablet 20 Meq) 20 meq PO DAILY [facility] Last Admin: 05/11/20 11:24 Dose: 20 meq Documented by: Prochlorperazine Edisylate (Prochlorperazine 10 Mg/2 Ml Vial) 5 mg IV Q4H PRN PRN PRN Reason: Breakthrough Nausea/Vomiting Psyllium Hydrophilic Mucilloid (Psyllium 1 Packet) 1 packet PO DAILY PRN PRN PRN Reason: Constipation Ranolazine (Ranolazine 500 Mg Tablet) 500 mg PO BID [facility] Last Admin: 05/11/20 22:19 Dose: 500 mg Documented by: Senna/Docusate Sodium (Senna/Docusate Sodium 1 Tablet) 2 tablet PO BID PRN PRN PRN Reason: Constipation Sodium Chloride (0.9% Saline Lock 10 Ml Syringe) 10 - 40 ml IV UD PRN PRN Reason: SALINE FLUSH Last Admin: 05/11/20 22:07 Dose: 10 ml Documented by: Tamsulosin HCl (Tamsulosin Hcl 0.4 Mg Capsule) 0.4 mg PO QHS [facility] Last Admin: 05/11/20 22:19 Dose: 0.4 mg Documented by: Throat Lozenges (Benzocaine/Menthol 1 Lozenge) 1 lozenge MUCOUS MEM Q2H PRN PRN PRN Reason: SORE THROAT Medical Necessity - Tobacco Use Smoking Status: Former smoker Tobacco Use: Non-smoker Assessment/Plan All Active Problems (Last Reviewed 04/09/20 @ 00:[address] Carlos Alberto Fermin MD) Syncope and collapse (Acute) Acute electrocardiogram changes (Acute) Severe sepsis (Acute) Right middle lobe pneumonia (Acute) Respiratory failure (Acute) Acute on chronic respiratory failure (Acute) History of coronary artery stent placement (Resolved) H/O coronary artery bypass surgery (Resolved) Abnormal EKG (Acute) RECOMMENDATIONS: 1. Continue antimicrobials. The patient to be transition to Levaquin to complete 7-day treatment course from my perspective. 2. Continue diuretic therapy as tolerated by hemodynamics and renal function. 3. Continue to wean supplemental oxygen to maintain saturations at or above 90%. 4. Continue nocturnal Pap therapy per home regimen. 5. Encourage incentive spirometer use and mobilize patient as tolerated. 6. Additional medical work-up per cardiology recommendations. IMPRESSIONS: 1. Acute on chronic hypoxemic respiratory failure Clinical concern for potential pneumonia coupled with possible decompensated heart failure, especially in the setting of bilateral pleural effusions noted on CT chest. Recommend continuing IV diuretic therapy. Antimicrobials will be continued accordingly. Wean supplemental oxygen to maintain saturations at or above 90%. Continue bronchodilator therapy. Encourage incentive spirometer use and mobilize patient as tolerated. 2. History of coronary artery disease/syncope The patient does have a known coronary history and did apparently experience a syncopal event in the emergency department. Device interrogation was unremarkable. Cardiology is currently following to assist with medical management. 3. History of tobacco dependency with questionable COPD/hypertension/hyperlipidemia/diabetes mellitus/obesity/obstructive sleep apnea Complicates care, management, recovery and prognosis. Continue bronchodilator therapy as ordered. Continue nocturnal Pap therapy. This note was generated with [employer] dictation software. It may contain incorrect words, spelling, and punctuation that were not noted in checking the note before signing. Inpatient E&M: 04935 Subs Hosp L2
[2020-05-12 07:31] LABS: Hematocrit 31.3 % (40-54); Hemoglobin 8.9 g/dL (13.0-16.5); Mean Corp Hgb Conc 28.4 g/dL (32-36); Mean Corpuscular Hgb 24.7 pg (27.0-32.0); Mean Corpuscular Volume 86.7 fL (80-94); Mean Platelet Vol. 10.8 fl (6.2-12.0); Platelet Count 186 K/mm3 (150-450); RBC Distribution Width CV 15.9 % (11.6-14.6); RBC Distribution Width SD 50.3 fl (35.1-43.9); Red Blood Count 3.61 M/mm3 (4.6-6.2); White Blood Count 4.9 K/mm3 (4.4-11.0)
[2020-05-12] MEDS: Ipratropium/Albuterol Sulfate 3 ML AMPUL.NEB INHALATION ×2 (07:36→11:02)
[2020-05-12 07:58] LABS: Anion Gap 3 (5-15); BUN 14 mg/dL (7-18); Calcium,Total 8.3 mg/dL (8.5-10.1); Chloride 100 mmol/L (98-107); Creatinine, Serum 0.67 mg/dL (0.70-1.30); EST Glomerular Filtration Rate 125 mL/min (>60); Est Glom Filt Rate - Afr Amer 151 mL/min (>60); Estimated Creatinine Clearance 71.99 ml/min; Glucose 70 mg/dL (74-106); Potassium 3.4 mmol/L (3.5-5.1); Sodium Level 140 mmol/L (136-145)
--- NOTE | 2020-05-12 09:19 | PN.CARD_ITS ---
Subjectve: Patient seen and evaluated. Appears to be stable. Objective: Vital Signs Temp Pulse Resp BP Pulse Ox 97.5 F L 62 18 118/64 96 05/12/20 03:20 05/12/20 07:36 05/12/20 08:48 05/12/20 03:20 05/12/20 07:36 Oxygen Flow Rate (L/min) [At 2 REST with Oxygen] Oxygen Flow Rate (L/min) [ 4 AMBULATING with Oxygen #2] Oxygen Flow Rate (L/min) [ 3 AMBULATING with Oxygen #1] Oxygen Flow Rate (L/min) 3 Oxygen Delivery Method Nasal Cannula Weight: 237 lb 10.533 oz Body Mass Index (BMI) 34.7 Finger Stick Blood Glucose 284 Intake and Output for Last 24 Hours 05/10/20 05/11/20 05/12/20 23:59 23:59 23:59 Intake Total 3109.50 / 3349.50 1529.75 / 1829.75 601.25 / 601.25 Output Total 2475 / 3925 2650 / 2650 250 / 250 Balance 634.50 / -575.50 -1120.25 / -820.25 351.25 / 351.25 General: Awake, Alert, Oriented x 3 HEENT: PERRL, EOMI, Sclera Non Icteric Neck: Supple, Good ROM, No Lymph Node Enlargement Lungs: Clear to auscultation Cardiovascular: Regular Rhythm, Normal S1, Normal S2, No Murmurs, No Rubs, No Gallops Vascular: No Carotid Bruits, Normal Femoral Pulses, Normal Radial Pulses, Normal Dorsalis Pedal Pulse, Normal Posterior Tibial Pulses Abdomen: Bowel Sounds Present, Soft, Non Tender, No HSM, No Organomegaly Extremities: No Cyanosis, No Clubbing, No edema Musculoskeletal: No Erythema Neurological: No Focal Motor or Sensory Deficit Psych/Mental Status: Appropriate 05/12/20 06:47: WBC 4.9, RBC 3.61 L, Hgb 8.9 L, Hct 31.3 L, MCV 86.7, MCH 24.7 L , MCHC 28.4 L, Plt Count 186, MPV 10.8 05/12/20 06:47: Sodium 140, Potassium 3.4 L, Chloride 100, Carbon Dioxide 37.0 H , Anion Gap 3 L, BUN 14, Creatinine 0.67 L, Est GFR (MDRD) Af Amer 151, Est GFR (MDRD) Non-Af 125, BUN/Creatinine Ratio 21.0 H, Glucose 70 L, Calcium 8.3 L Rhythm: EKG: ECHO: Stress Test: Cardiac Cath: PCI: CT Surgery: Holter monitor: EPS: PPM: CXR: Chest CT Scan: Medical Necessity - Tobacco Use Smoking Status: Former smoker Tobacco Use: Non-smoker Assessment/Plan 1. Coronary artery disease * Patient appears to be stable with respect to his coronary artery disease. Recent stress testing cardiac catheterization demonstrated no evidence of ischemia and patent coronary anatomy. At this juncture I do not see a reason to pursue any further testing. * 2. Syncope. The etiology of the above is not entirely clear. Patient appears to be main taining sinus rhythm and atrial paced. His pacemaker interrogation also did not demonstrate any significant abnormalities. Normal pacemaker function was noted. In addition his ejection fraction is normal. 3. Shortness of breath * He appears to be less short of breath at this time. He was switched to p.o. diuretics. * * If he appears to be stable he can be discharged for outpatient follow-up.
[2020-05-12 09:26] LABS: Bedside Glucose 100 mg/dL (70-110)
[2020-05-12] MEDS: Furosemide 40 MG Tablet PO (09:45)
[2020-05-12] MEDS: Carvedilol 12.5 MG Tablet 18.75 MG PO (09:48)
[2020-05-12] MEDS: Gabapentin 300 MG Capsule PO (09:49)
[2020-05-12] MEDS: Aspirin E.C. 81 MG Tablet PO (09:50)
[2020-05-12] MEDS: Pantoprazole Sodium 40 MG Tablet PO (09:50)
[2020-05-12] MEDS: Potassium Chloride Oral Tablet 20 MEQ PO ×2 (09:51→12:18)
[2020-05-12] MEDS: Escitalopram Oxalate 10 MG Tablet PO (09:52)
[2020-05-12] MEDS: Clopidogrel Bisulfate 75 MG Tablet PO (09:52)
[2020-05-12] MEDS: Finasteride 5 MG Tablet PO (09:53)
[2020-05-12] MEDS: Ranolazine 500 MG Tablet PO (09:53)
[2020-05-12] MEDS: Insulin U-500 UNITS/ML PEN 110 UNITS SC (09:54)
--- NOTE | 2020-05-12 10:57 | DCINST_ITS ---
- Discharge Diagnoses Current Active Problems: Current Active and Chronic Problems (Last Reviewed 04/09/20 @ 00:[address] Carlos Alberto Fermin MD) CAD (coronary artery disease) (Chronic) Syncope and collapse (Acute) Severe sepsis (Acute) Right middle lobe pneumonia (Acute) Respiratory failure (Acute) Acute on chronic respiratory failure (Acute) Atherosclerotic heart disease [place] coronary artery w/angina pectoris (Chronic) Cardiac catheterization 02/24/2017?normal LV size should not, EF 55%, [place] multivessel CAD, patent SVG to diagonal 1, OM 2, and RCA, MASON to LAD previously reported as atretic/nonfunctional (not reevaluated at that time), advised medical therapy Essential (primary) hypertension (Chronic) EKATERINA (obstructive sleep apnea) (Chronic) Atypical chest pain (Chronic) Left-sided weakness (Chronic) Hyperlipidemia (Chronic) Obesity (Chronic) Chronic respiratory failure (Chronic) baseline 3L continuously DM type 2 (diabetes mellitus, type 2) (Chronic) Seizure (Chronic) Aphasia (Chronic) CVA (cerebral vascular accident) (Chronic) Residual left-sided weakness You will use the following diet at home:: Cardiac Discharge Activity: Return to Normal Activity Call your doctor if you observe: Shortness of breath, Dizziness, Fainting spells, Chest pain Allergies/Adverse Reactions: Allergies ezetimibe Allergy (Verified 05/09/20 17:34) Unknown Fish Containing Products Allergy (Verified 05/09/20 17:34) Unknown glyburide Allergy (Verified 05/09/20 17:34) Unknown isosorbide Allergy (Verified 05/09/20 17:34) PT UNSURE OF REACTION lisinopril Allergy (Verified 05/09/20 17:34) Unknown metformin Allergy (Verified 05/09/20 17:34) Nausea metoprolol Allergy (Verified 05/09/20 17:34) Unknown simvastatin Allergy (Verified 05/09/20 17:34) Unknown Medications to take at Discharge Aspirin E.C. [Ecotrin] 81 mg PO DAILY@0800 06/11/18 Atorvastatin Calcium [Lipitor] 80 mg PO QHS 06/11/18 Cholecalciferol (VIT D3) [Vitamin D3] 3,000 units PO DAILY 06/11/18 Clopidogrel Bisulfate [Clopidogrel] 75 mg PO DAILY 06/11/18 Escitalopram Oxalate [Lexapro] 10 mg PO DAILY 06/11/18 Finasteride [Proscar] 5 mg PO DAILY 06/11/18 Furosemide [Lasix] 40 mg PO DAILY 06/11/18 Insulin Regular, Human [Humulin R U-500 Kwikpen] 110 unit SQ BREAKFAST 06/11/18 Insulin Regular, Human [Humulin R U-500 Kwikpen] 110 unit SQ QHS 06/11/18 Multivitamins,Ther W-Minerals [Multivitamin With Minerals ([facility]KC)] 1 tablet PO DA JUANCHO 06/11/18 Pantoprazole Sodium 40 mg PO BIDCM 06/11/18 Acetaminophen [Tylenol Tablet] 650 mg PO Q6H PRN PRN tablet 06/21/18 Nitroglycerin (INPATIENT USE) [Nitrostat] 0.4 mg SUBLINGUAL Q5M PRN #30 tablet 07/22/18 Diclofenac Sodium [Diclo Gel] 4 gm TP BID PRN PRN 11/08/19 Guaifenesin 10 ml PO TID PRN PRN 11/08/19 Ketoconazole [Nizoral] 1 applicatio TP DAILY 11/08/19 Albuterol Inhaler [Ventolin Hfa] 1 - 2 puff INHALATION 4X/DAY PRN PRN 04/08/20 Potassium Chloride [Klor-Con M20] 20 meq PO DAILY 04/08/20 Ranolazine [Ranexa] 500 mg PO BID #0 04/10/20 Tamsulosin HCl [Flomax] 0.4 mg PO QHS #30 cap 04/10/20 levoFLOXacin tablet [Levaquin tablet] 750 mg PO DAILY #4 tab 05/12/20 The following prescriptions were given: levoFLOXacin tablet [Levaquin tablet] 750 mg PO DAILY #4 tab Transmission Status: Pending to [id number] Primary Care Physician: [facility],[place] [Primary Care Provider] - Please follow up with your Primary Care Physician in: 1 Week Test Results: Test results from this visit will be discussed in further detail at your follow- up appointment, if applicable. Please Follow Up With: Primary Supervisor [employer] When: 1-2 Weeks Proposed Discharge Date: 05/12/20
--- NOTE | 2020-05-12 11:03 | PCM.DC.SUM ---
<Candice Stafford PYROMETALLURGICAL ENGINEER - Last Filed: 05/12/20 11:14> Discharge Date and Diagnosis - Problem List Patient Problems: Active and Suspected Problems (Last Reviewed 04/09/20 @ 00:[address] Carlos Alberto Fermin MD) Syncope and collapse (Acute) Severe sepsis (Acute) Right middle lobe pneumonia (Acute) Respiratory failure (Acute) Acute on chronic respiratory failure (Acute) Date of Admission: 05/09/20 Date of Discharge: 05/12/20 - Primary Discharge Diagnosis Acute Problems: Active Problems (Last Reviewed 04/09/20 @ 00:[address] Carlos Alberto Fermin MD) 1. Severe sepsis secondary to community-acquired pneumonia with bilateral pleural effusions 2. Acute on chronic heart failure with preserved ejection fraction- 3. Syncope 4. Chronic hypoxic respiratory failure 5. History of CVA with recurrent aphasia 6. CAD with history of CABG and stents 7. Type 2 diabetes mellitus 8. Hypertension 9. Hyperlipidemia 10. EKATERINA 11. BPH 12. History of seizure disorder 13. Anxiety/depression 14. Morbid obesity - Secondary Discharge Diagnosis Chronic Problems: Chronic Problems (Last Reviewed 04/09/20 @ 00:[address] Carlos Alberto Fermin MD) CAD (coronary artery disease) (Chronic) UTI (urinary tract infection) (Chronic) Hypokalemia (Chronic) History of permanent cardiac pacemaker placement (Chronic 09/10/11) 2001 Atherosclerotic heart disease [place] coronary artery w/angina pectoris (Chronic) Cardiac catheterization 02/24/2017?normal LV size should not, EF 55%, [place] multivessel CAD, patent SVG to diagonal 1, OM 2, and RCA, MASON to LAD previously reported as atretic/nonfunctional (not reevaluated at that time), advised medical therapy Essential (primary) hypertension (Chronic) CONI (acute kidney injury) (Chronic) EKATERINA (obstructive sleep apnea) (Chronic) Chest wall contusion (Chronic) Atypical chest pain (Chronic) Left-sided weakness (Chronic) Hyperlipidemia (Chronic) Obesity (Chronic) Chronic respiratory failure (Chronic) baseline 3L continuously DM type 2 (diabetes mellitus, type 2) (Chronic) Obstructive sleep apnea (Chronic) Seizure (Chronic) Aphasia (Chronic) CVA (cerebral vascular accident) (Chronic) Residual left-sided weakness Hospital Course and Treatment Imaging Results: Diagnostic Data Chest X-Ray 05/09/20 17:50 IMPRESSION: Increased interstitial markings may represent edema and/or infection. Electronically Signed: Eric Martinez MD at 18:53 EDT Tel , Service support , Chest CTA 05/09/20 18:32 IMPRESSION: 1. No evidence of pulmonary embolus. 2. No aortic dissection or aneurysm. 3. Bilateral pleural effusions and atelectasis not previously noted. 4. Vague ground glass infiltrates in right middle lobe not previously noted. 5. Otherwise stable findings. Electronically Signed: Henrry Baron DO at 19:45 EDT Tel [phone], Service support , Echocardiogram 05/10/20 15:44 Interpretation Summary The estimated ejection fraction is 60 %. Diastolic function is indeterminate. The left atrium is mildly enlarged. Ordering Physician: Nathan Salcido Referring Physician: [facility] Performed By: Tawnya Gregory, MEE, RVT Dr. Schmidt- Pulmonary medicine Dr. Salcido- Cardiology Operations: None Procedures: 2-D Echocardiogram Summary of Care Provided: The patient is a 69 year old M admitted 05/09/2020 due to dyspnea and cough. 1. Severe sepsis secondary to community-acquired pneumonia with bilateral pleural effusions-improved. Continue IV Zosyn. Repeat oxygen testing prior to discharge. Possible discharge home tomorrow pending continued improvement and cardiology clearance for discharge. 2. Acute on chronic heart failure with preserved ejection fraction-IV Lasix. Strict I&O. Daily weight. Repeat echocardiogram demonstrates an EF of 60%. Follow-up with primary sediment remediation consultant at [place] in 1 to 2 weeks. 3. Syncope-troponin negative. Orthostatic vitals negative. Pacemaker interrogation completed 05/10/2020 without significant abnormalities. Echocardiogram completed as noted above. Patient had recent stress and heart cath which showed patent coronaries and no evidence of ischemia. 4. Chronic hypoxic respiratory failure-on 2 L continuously at home. Patient will require 4 L with exertion at discharge. New oxygen Rx given at discharge. He is ambulatory in the home. 5. History of CVA with recurrent aphasia-Continue aspirin, statin, Plavix. 6. CAD with history of CABG and stents-continue aspirin, statin, Plavix, carvedilol, Ranexa. 7. Type 2 diabetes mellitus-continue home insulin regimen. 8. Hypertension-stable, continue carvedilol, Lasix. 9. Hyperlipidemia-continue high-dose statin. 10. EKATERINA-continue home BiPAP regimen. 11. BPH-continue Flomax, proscar. 12. History of seizure disorder? Previously on Keppra. No longer taking. 13. Anxiety/depression-continue Lexapro. 14. Morbid obesity- encouraged diet and lifestyle modifications. General: Alert, Oriented x3, Cooperative HEENT: Atraumatic, PERRLA, EOMI, Normocephalic Neck: Supple, No JVD, Negative Carotid Bruits Lungs: Diminished, clear to auscultation Cardiovascular: Regular rate, No murmurs Abdomen: Bowel Sounds Present, Soft, Non Tender Extremities: No clubbing, No cyanosis, No edema, Capillary Refill Less than 3 Seconds Skin: No rashes, No breakdown, Venous stasis changes bilateral lower extremities Musculoskeletal: No Tenderness to Palpation of Joints or Extremities Neurological: Cranial nerves II-XII grossly intact, Neuro grossly intact Psych/Mental Status: Normal Affect, Appropriate Patient seen and examined prior to discharge. Physical assessment as noted above. Patient is stable for discharge with follow up recommendations as noted above. This patient was seen by KELLY Dyson under the supervision of Dr. Strickland. Patient Problems: Active and Suspected Problems (Last Reviewed 04/09/20 @ 00:[address] Carlos Alberto Fermin MD) Syncope and collapse (Acute) Severe sepsis (Acute) Right middle lobe pneumonia (Acute) Respiratory failure (Acute) Acute on chronic respiratory failure (Acute) - Physical Exam Vitals/I&O's: Vital Signs Temp Pulse Resp BP Pulse Ox 97.9 F 60 18 134/59 H 95 05/12/20 09:38 05/12/20 09:38 05/12/20 09:38 05/12/20 09:38 05/12/20 09:38 Oxygen Flow Rate (L/min) [At 2 REST with Oxygen] Oxygen Flow Rate (L/min) [ 4 AMBULATING with Oxygen #2] Oxygen Flow Rate (L/min) [ 3 AMBULATING with Oxygen #1] Oxygen Flow Rate (L/min) 3 Oxygen Delivery Method Nasal Cannula Weight: 237 lb 10.533 oz Body Mass Index (BMI) 34.7 Finger Stick Blood Glucose 284 Intake and Output for Last 24 Hours 05/10/20 05/11/20 05/12/20 23:59 23:59 23:59 Intake Total 3109.50 / 3349.50 1529.75 / 1829.75 651.25 / 651.25 Output Total 2475 / 3925 2650 / 2650 250 / 250 Balance 634.50 / -575.50 -1120.25 / -820.25 401.25 / 401.25 Microbiology Past 72 Hours 05/09/20 21:00 Blood Culture (Wb) - Left Wrist Blood Culture - Preliminary No growth in 48 hours. 05/10/20 02:30 Urine, Clean Catch Legionella Antigen - Final 05/10/20 02:30 Urine, Clean Catch Streptococcus pneumoniae Antigen (M - Final 05/09/20 21:55 Mucosa - Nasopharyngeal Respiratory Panel (PCR) - Final 05/09/20 21:05 Mucosa - Nose SARS-CoV-2 Antigen (Rapid) - Final Laboratory Results 05/11/20 11:36: POC Glucose 264 H 05/11/20 17:06: POC Glucose 174 H 05/11/20 21:49: POC Glucose 226 H 05/12/20 06:47: WBC 4.9, RBC 3.61 L, Hgb 8.9 L, Hct 31.3 L, MCV 86.7, MCH 24.7 L, MCHC 28.4 L, RDW Std Deviation 50.3 H, RDW Coeff of Cinda 15.9 H, Plt Count 186, MPV 10.8 05/12/20 06:47: Sodium 140, Potassium 3.4 L, Chloride 100, Carbon Dioxide 37.0 H, Anion Gap 3 L, BUN 14, Creatinine 0.67 L, Estim Creat Clear Calc 71.99, Est GFR (MDRD) Af Amer 151, Est GFR (MDRD) Non-Af 125, BUN/Creatinine Ratio 21.0 H, Glucose 70 L, Calcium 8.3 L 05/12/20 09:17: POC Glucose 100 Current Medications Acetaminophen (Acetaminophen 325 Mg Tablet) 650 mg PO Q6H PRN PRN PRN Reason: Pain Score 1-10/Temp > 100.7 F Last Admin: 05/09/20 23:20 Dose: 650 mg Documented by: Al Hydroxide/Mg Hydroxide (Mag Hydrox/Al Hydrox/Simeth 30 Ml Udc) 30 ml PO Q6H PRN PRN PRN Reason: Gastric Burning Albuterol Sulfate (Albuterol 2.5 Mg/3 Ml Vial.Neb.) 2.5 mg INHALATION Q2H PRN PRN PRN Reason: Dyspnea, wheezing Albuterol/Ipratropium (Ipratropium/Albuterol Sulfate 3 Ml Ampul.Neb) 3 ml INHALATION Q4HWA.RT [facility] Last Admin: 05/12/20 11:02 Dose: 3 ml Documented by: Aspirin (Aspirin E.C. 81 Mg Tablet) 81 mg PO DAILY@0800 [facility] Last Admin: 05/12/20 09:50 Dose: 81 mg Documented by: Atorvastatin Calcium (Atorvastatin Calcium 80 Mg Tablet) 80 mg PO QHS [facility] Last Admin: 05/11/20 22:19 Dose: 80 mg Documented by: Carvedilol (Carvedilol 12.5 Mg Tablet) 18.75 mg PO BID [facility] Last Admin: 05/12/20 09:48 Dose: 18.75 mg Documented by: Clopidogrel Bisulfate (Clopidogrel Bisulfate 75 Mg Tablet) 75 mg PO DAILY [facility] Last Admin: 05/12/20 09:52 Dose: 75 mg Documented by: Enoxaparin Sodium (Enoxaparin 40 Mg/0.4 Ml Syringe) 40 mg SC DAILY [facility] Last Admin: 05/12/20 09:55 Dose: Not Given Documented by: Escitalopram Oxalate (Escitalopram Oxalate 10 Mg Tablet) 10 mg PO DAILY [facility] Last Admin: 05/12/20 09:52 Dose: 10 mg Documented by: Finasteride (Finasteride 5 Mg Tablet) 5 mg PO DAILY [facility] Last Admin: 05/12/20 09:53 Dose: 5 mg Documented by: Furosemide (Furosemide 40 Mg Tablet) 40 mg PO DAILY [facility] Last Admin: 05/12/20 09:45 Dose: 40 mg Documented by: Gabapentin (Gabapentin 300 Mg Capsule) 300 mg PO BID [facility] Last Admin: 05/12/20 09:49 Dose: 300 mg Documented by: Guaifenesin (Guaifenesin 10 Ml Udc (200mg/10ml)) 10 ml PO Q4H PRN PRN PRN Reason: COUGH Hydralazine HCl (Hydralazine 20 Mg/Ml Vial) 10 mg IV Q4H PRN PRN PRN Reason: SBP > 160 Piperacillin Sod/Tazobactam (Sod 3.375 gm/ Sodium Chloride) 50 mls @ 12.5 mls/hr IV Q8 [facility] Last Infusion: 05/12/20 10:04 Dose: Infused Documented by: Sodium Chloride () 250 mls @ 15 mls/hr IV .[id number] PRN PRN Reason: Saline Flush Last Infusion: 05/12/20 05:25 Dose: 0 mls/hr Documented by: Sodium Chloride () 250 mls @ 15 mls/hr IV .[id number] PRN PRN Reason: Additional IVPB Infusion Insulin Human Lispro (Insulin Lispro 100 Unit/Ml Insuln.Pen) 0 unit SC ACHS [facility]; Protocol Last Admin: 05/12/20 09:56 Dose: Not Given Documented by: Insulin Human Regular (Insulin U-500 Units/Ml Pen) 110 units SC BREAKFAST [facility] Last Admin: 05/12/20 09:54 Dose: 55 units Documented by: Insulin Human Regular (Insulin U-500 Units/Ml Pen) 110 units SC QHS [facility] Last Admin: 05/11/20 22:23 Dose: 110 u Documented by: Nitroglycerin (Nitroglycerin (Inpatient Use) 0.4 Mg Tab.Subl) 0.4 mg SL Q5M PRN PRN Reason: CARDIAC/CHEST PAIN Pantoprazole Sodium (Pantoprazole Sodium 40 Mg Tablet) 40 mg PO BIDCM [facility] Last Admin: 05/12/20 09:50 Dose: 40 mg Documented by: Potassium Chloride (Potassium Chloride Oral Tablet 20 Meq) 20 meq PO DAILY [facility] Last Admin: 03/27/21 09:51 Dose: 20 meq Documented by: Prochlorperazine Edisylate (Prochlorperazine 10 Mg/2 Ml Vial) 5 mg IV Q4H PRN PRN PRN Reason: Breakthrough Nausea/Vomiting Psyllium Hydrophilic Mucilloid (Psyllium 1 Packet) 1 packet PO DAILY PRN PRN PRN Reason: Constipation Ranolazine (Ranolazine 500 Mg Tablet) 500 mg PO BID [facility] Last Admin: 05/12/20 09:53 Dose: 500 mg Documented by: Senna/Docusate Sodium (Senna/Docusate Sodium 1 Tablet) 2 tablet PO BID PRN PRN PRN Reason: Constipation Sodium Chloride (0.9% Saline Lock 10 Ml Syringe) 10 - 40 ml IV UD PRN PRN Reason: SALINE FLUSH Last Admin: 05/11/20 22:07 Dose: 10 ml Documented by: Tamsulosin HCl (Tamsulosin Hcl 0.4 Mg Capsule) 0.4 mg PO QHS [facility] Last Admin: 05/11/20 22:19 Dose: 0.4 mg Documented by: Throat Lozenges (Benzocaine/Menthol 1 Lozenge) 1 lozenge MUCOUS MEM Q2H PRN PRN PRN Reason: SORE THROAT Discharge Diet: Low fat/ Low Cholesterol Discharge Activity: Return to Normal Activity Call your doctor if you observe: Shortness of breath, Dizziness, Fainting spells, Chest pain Home Medications: Medications to take at Discharge Aspirin E.C. [Ecotrin] 81 mg PO DAILY@0800 06/11/18 Atorvastatin Calcium [Lipitor] 80 mg PO QHS 06/11/18 Cholecalciferol (VIT D3) [Vitamin D3] 3,000 units PO DAILY 06/11/18 Clopidogrel Bisulfate [Clopidogrel] 75 mg PO DAILY 06/11/18 Escitalopram Oxalate [Lexapro] 10 mg PO DAILY 06/11/18 Finasteride [Proscar] 5 mg PO DAILY 06/11/18 Furosemide [Lasix] 40 mg PO DAILY 06/11/18 Insulin Regular, Human [Humulin R U-500 Kwikpen] 110 unit SQ BREAKFAST 06/11/18 Insulin Regular, Human [Humulin R U-500 Kwikpen] 110 unit SQ QHS 06/11/18 Multivitamins,Ther W-Minerals [Multivitamin With Minerals (BKC)] 1 tablet PO DAILY 06/11/18 Pantoprazole Sodium 40 mg PO BIDCM 06/11/18 Acetaminophen [Tylenol Tablet] 650 mg PO Q6H PRN PRN tablet 06/21/18 Nitroglycerin (INPATIENT USE) [Nitrostat] 0.4 mg SUBLINGUAL Q5M PRN #30 tablet 07/22/18 Diclofenac Sodium [Diclo Gel] 4 gm TP BID PRN PRN 11/08/19 Guaifenesin 10 ml PO TID PRN PRN 11/08/19 Ketoconazole [Nizoral] 1 applicatio TP DAILY 11/08/19 Albuterol Inhaler [Ventolin Hfa] 1 - 2 puff INHALATION 4X/DAY PRN PRN 04/08/20 Potassium Chloride [Klor-Con M20] 20 meq PO DAILY 04/08/20 Ranolazine [Ranexa] 500 mg PO BID #0 04/10/20 Tamsulosin HCl [Flomax] 0.4 mg PO QHS #30 cap 04/10/20 Carvedilol [Coreg (Beta Sophy)] 25 mg PO BID #60 tab 05/12/20 levoFLOXacin tablet [Levaquin tablet] 750 mg PO DAILY #4 tab 05/12/20 Following Prescriptions Were Given to Patient: Carvedilol [Coreg (Beta Sophy)] 25 mg PO BID #60 tab Transmission Status: Received by [facility]12 levoFLOXacin tablet [Levaquin tablet] 750 mg PO DAILY #4 tab Transmission Status: Received by [facility]12 Primary Care Physician: [facility] [Primary Care Provider] - Please follow up with your Primary Care Physician in: 1 Week Please Follow Up With: Primary Geography Professor When: 1-2 Weeks Disposition: Home Minutes spent on discharge:: 35 Patient Condition:: Stable Medical Necessity - Tobacco Use Smoking Status: Former smoker Tobacco Use: Non-smoker Meaningful Use Info Meaningful Use Diagnoses (Choose all that apply): CHF - CHF RAMIREZ/ARB ordered at discharge?: No Reason RAMIREZ/ARB not ordered?: Hypotension Documented LVEF (%): 60 <Víctor Strickland - Last Filed: 05/12/20 14:29> Discharge Date and Diagnosis - Primary Discharge Diagnosis Acute Problems: Active Problems (Last Reviewed 04/09/20 @ 00:[address] Carlos Alberto Fermin MD) Syncope and collapse (Acute) Severe sepsis (Acute) Right middle lobe pneumonia (Acute) Respiratory failure (Acute) Acute on chronic respiratory failure (Acute) - Secondary Discharge Diagnosis Chronic Problems: Chronic Problems (Last Reviewed 04/09/20 @ 00:[address] Carlos Alberto Fermin MD) CAD (coronary artery disease) (Chronic) UTI (urinary tract infection) (Chronic) Hypokalemia (Chronic) History of permanent cardiac pacemaker placement (Chronic 09/10/11) 2001 Atherosclerotic heart disease [place] coronary artery w/angina pectoris (Chronic) Cardiac catheterization 02/24/2017?normal LV size should not, EF 55%, [place] multivessel CAD, patent SVG to diagonal 1, OM 2, and RCA, MASON to LAD previously reported as atretic/nonfunctional (not reevaluated at that time), advised medical therapy Essential (primary) hypertension (Chronic) CONI (acute kidney injury) (Chronic) EKATERINA (obstructive sleep apnea) (Chronic) Chest wall contusion (Chronic) Atypical chest pain (Chronic) Left-sided weakness (Chronic) Hyperlipidemia (Chronic) Obesity (Chronic) Chronic respiratory failure (Chronic) baseline 3L continuously DM type 2 (diabetes mellitus, type 2) (Chronic) Obstructive sleep apnea (Chronic) Seizure (Chronic) Aphasia (Chronic) CVA (cerebral vascular accident) (Chronic) Residual left-sided weakness Hospital Course and Treatment Summary of Care Provided: The patient is a 69 year old M [] - Physical Exam Vitals/I&O's: Vital Signs Temp Pulse Resp BP Pulse Ox 97.6 F L 64 18 117/58 L 95 05/12/20 13:32 05/12/20 13:32 05/12/20 13:32 05/12/20 13:32 05/12/20 13:32 Oxygen Flow Rate (L/min) [At 2 REST with Oxygen] Oxygen Flow Rate (L/min) [ 4 AMBULATING with Oxygen #2] Oxygen Flow Rate (L/min) [ 3 AMBULATING with Oxygen #1] Oxygen Flow Rate (L/min) 3 Oxygen Delivery Method Nasal Cannula Weight: 237 lb 10.533 oz Body Mass Index (BMI) 34.7 Finger Stick Blood Glucose 284 Intake and Output for Last 24 Hours 05/10/20 05/11/20 05/12/20 23:59 23:59 23:59 Intake Total 3109.50 / 3349.50 1529.75 / 1829.75 1371.25 / 1371.25 Output Total 2475 / 3925 2650 / 2650 250 / 250 Balance 634.50 / -575.50 -1120.25 / -820.25 1121.25 / 1121.25 Microbiology Past 72 Hours 05/09/20 21:00 Blood Culture (Wb) - Left Wrist Blood Culture - Preliminary No growth in 48 hours. 05/10/20 02:30 Urine, Clean Catch Legionella Antigen - Final 05/10/20 02:30 Urine, Clean Catch Streptococcus pneumoniae Antigen (M - Final 05/09/20 21:55 Mucosa - Nasopharyngeal Respiratory Panel (PCR) - Final 05/09/20 21:05 Mucosa - Nose SARS-CoV-2 Antigen (Rapid) - Final Laboratory Results 05/11/20 17:06: POC Glucose 174 H 05/11/20 21:49: POC Glucose 226 H 05/12/20 06:47: WBC 4.9, RBC 3.61 L, Hgb 8.9 L, Hct 31.3 L, MCV 86.7, MCH 24.7 L, MCHC 28.4 L, RDW Std Deviation 50.3 H, RDW Coeff of Cinda 15.9 H, Plt Count 186, MPV 10.8 05/12/20 06:47: Sodium 140, Potassium 3.4 L, Chloride 100, Carbon Dioxide 37.0 H, Anion Gap 3 L, BUN 14, Creatinine 0.67 L, Estim Creat Clear Calc 71.99, Est GFR (MDRD) Af Amer 151, Est GFR (MDRD) Non-Af 125, BUN/Creatinine Ratio 21.0 H, Glucose 70 L, Calcium 8.3 L 05/12/20 09:17: POC Glucose 100 05/12/20 11:50: POC Glucose 167 H Addendum: Dr. Strickland I personally examined the patient and reviewed the chart. I agree with the above. 69-year-old male presented to the hospital with worsening dyspnea as well as increased swelling. He was found to have sepsis secondary to community-acquired pneumonia as well as acute on chronic diastolic CHF. He was diuresed well, and he was brought back down to his baseline oxygen requirements. He was also continued on Zosyn and transition to Levaquin on discharge for 4 more days. Cardiology felt that he was safe for discharge in could have a stress done as an outpatient if necessary. The discharge plan was discussed with him and he expressed understanding of the risk benefits of going home and wanted to go home today. Inpatient E&M: [id number] Disch Hosp
[2020-05-12] MEDS: Insulin Lispro 100 UNIT/ML INSULN.PEN SC (12:17)
[2020-05-12] MEDS: 0.9% Saline Lock 10 ML Syringe IV (12:18)
[2020-05-12 12:20] LABS: Bedside Glucose 167 mg/dL (70-110)
--- NOTE | 2020-05-12 14:02 | NURSING ---
all nursing care, medication administration, and documentation completed by SN Bola, on 05/12/20, done under the supervision of this RN.
--- NOTE | 2020-05-14 15:10 | CASEMGMT ---
KRISTI GERONIMO Discharge Follow-up Phone Call: SHAHZAD: 15 Strata: 4 Call Date: 05/14/20 Discharge Date: 05/12/20 Time of Call: 1510 Duration: 4 min Admitting Diagnosis: Resp failure, PNA, Severe Sepsis, Syncopal event KRISTI GERONIMO completed follow-up phone call after recent hospitalization. Lucina answered and states that patient is doing ok, had some difficulty with breathing yesterday but associates it with weather changes. had no questions or concerns regarding discharge instructions. Patient was able to fill prescription without any difficulty. states [facility] has been to see patient and that they are going to follow-up with palliative care. had no further questions or concerns at this time.
--- NOTE | 2020-05-14 15:10 | CASEMGMT ---
Pt did qualify for Palliative c/s per [facility] palliative screening tool and [facility] was updated regarding this and this RN CM also received a call from Malgorzata PARKS at [place] [facility], stating they received updated order for pt home oxygen. Obdulia BERRY CM
== END 2020-05-12 13:42 | disposition home or self-care (01) | DRG 871 ==
LOC: ED 21:02 → ICU 21:12 → PCU 05-10 13:35
PROVIDERS: Internal Medicine Critical Care Medicine; Nurse Practitioner Family; Student in an Organized Health Care Education/Training Program; Admitting Provider Family Medicine; Emergency Provider Emergency Medicine; Visit Provider Family Medicine
DX: A41.9 Sepsis, unspecified organism (principal); J18.9 Pneumonia, unspecified organism; I50.33 Acute on chronic diastolic (congestive) heart failure; J90 Pleural effusion, not elsewhere classified; J44.0 Chronic obstructive pulmonary disease with (acute) lower respiratory infection; J98.11 Atelectasis; J96.11 Chronic respiratory failure with hypoxia; I42.9 Cardiomyopathy, unspecified; R65.20 Severe sepsis without septic shock; E87.6 Hypokalemia; G47.33 Obstructive sleep apnea (adult) (pediatric); I11.0 Hypertensive heart disease with heart failure; E83.42 Hypomagnesemia; E78.5 Hyperlipidemia, unspecified; Z95.1 Presence of aortocoronary bypass graft; Z95.5 Presence of coronary angioplasty implant and graft; Z95.0 Presence of cardiac pacemaker; Z87.891 Personal history of nicotine dependence; I69.320 Aphasia following cerebral infarction; N40.0 Benign prostatic hyperplasia without lower urinary tract symptoms; G40.909 Epilepsy, unspecified, not intractable, without status epilepticus; E66.01 Morbid (severe) obesity due to excess calories; F41.9 Anxiety disorder, unspecified; F32.9 Major depressive disorder, single episode, unspecified; I25.119 Atherosclerotic heart disease of native coronary artery with unspecified angina pectoris; Z79.4 Long term (current) use of insulin; Z68.34 Body mass index [BMI] 34.0-34.9, adult; R55 Syncope and collapse; E11.69 Type 2 diabetes mellitus with other specified complication; E11.40 Type 2 diabetes mellitus with diabetic neuropathy, unspecified; D64.9 Anemia, unspecified; K21.9 Gastro-esophageal reflux disease without esophagitis; Z66 Do not resuscitate
CPT/HCPCS: 36415; 71045; 71275; 80048; 80053; 80202; 82962; 83605; 83735; 83880; 84145; 84484; 85025; 85027; 85379; 85610; 85730; 87040; 87426; 87449; 87633; 87641; 93005; 93306; 94002; 94003; 94640; 97110; 97162; 97166; 97530; 97535; 97802; 99251; 99285; J7030; J7040; J7050; Q9957; Q9967; A4216; C8929; G0463; J0696; J1940

== ENCOUNTER 2020-05-18 17:24 | Inpatient (IN) | payer OTHER, MEDICARE, SELFPAY ==
[2020-05-09 21:59] VITALS: BMI 34.7
[2020-05-18] VITALS (12 sets, daily range): BP systolic 144–178; BP diastolic 72–95; PULSE 67–81; RESP 16–22; TEMP 36.7–36.9; O2SAT 93–99; BMI 34.4; BMI 34.5; BMI 33.3
--- NOTE | 2020-05-18 17:25 | CT_ITS ---
STUDY: CTA HEAD AND NECK WITH CONTRAST REASON FOR EXAM: Male, 69 years old. Neuro deficit, acute, stroke suspected RADIATION DOSAGE (If Supplied By Facility): CTDIvol = ( 25.11 ) mGy, DLP = ( 853.78 ) mGycm TECHNIQUE: CT angiography was performed with a multi-detector CT scanner. Data acquisition was obtained from the skull base through the vertex following intravenous administration of IV 100mL Isovue-370. MIP images were reconstructed from the axial data set. Post-processing of the angiographic images was performed, with multiplanar reformation and 3D reconstruction. Sensitivity limited without thin axial images. Individualized dose optimization techniques were used for this CT. COMPARISON: CT brain 12/06/2020 and CTA brain and neck 11/09/2019 FINDINGS: Normal bilateral petrous carotid arteries. Normal right cavernous carotid artery with a normal supraclinoid bifurcation. Normal left cavernous carotid artery with a normal supraclinoid bifurcation. Normal right A1 segments of the anterior cerebral artery. Normal left A1 segments of the anterior cerebral artery. Normal intact anterior communicating artery (ACOM). Normal bilateral A2 segments of the anterior cerebral arteries. Normal right M1 and M2 segments of the middle cerebral arteries, with a normal M1 bifurcation. Normal left M1 and M2 segments of the middle cerebral arteries, with a normal M1 bifurcation. There is non-visualization of the right posterior communicating artery (PCOM). There is non-visualization of the left posterior communicating artery (PCOM). Normal bilateral vertebral arteries. Normal basilar artery with a normal basilar bifurcation. The visualized bilateral superior cerebellar (SCA) arteries are normal. Normal bilateral P1, P2 and visualized P3 segments of the posterior cerebral arteries. There is no demonstrated aneurysm of the [place]. There is no demonstrated abnormality of the visualized brain. AORTIC ARCH: Normal visualized aortic arch. Normal origins of the brachiocephalic, left common carotid, and left subclavian arteries. RIGHT CAROTID ARTERIES: Normal right common carotid artery (CCA). There is mild atherosclerotic plaque formation with minimal narrowing of the right carotid bulb. Normal origin of the right internal carotid (ICA) artery without a hemodynamically significant stenosis. Normal visualized cervical portion of the right internal carotid artery. Normal origin of the right external carotid artery (ECA). LEFT CAROTID ARTERIES: Normal left common carotid artery (CCA). There is mild atherosclerotic plaque formation with minimal narrowing of the left carotid bulb. Normal origin of the left internal carotid (ICA) artery without a hemodynamically significant stenosis. Normal visualized cervical portion of the left internal carotid artery. Normal origin of the left external carotid artery (ECA). VERTEBRAL ARTERIES: Right vertebral artery normal. Focal plaque proximal left vertebral artery causes moderate stenosis unchanged. CT/STROKE CTA Head AND Neck W/Con IMPRESSION: Moderate stable stenosis proximal left vertebral artery otherwise unremarkable CTA of the head and neck. N.B. : The above information has been verbally conveyed by Minor Gaviria MD to VANDANA Cerna on 05/18/2020 17:58:44 (ET). Pending Final Proof Editing
--- NOTE | 2020-05-18 17:25 | RAD_ITS ---
STUDY: X-RAY CHEST REASON FOR EXAM: Male, 69 years old. Neuro deficit, acute, stroke suspected TECHNIQUE: Single frontal view of the chest. COMPARISON: CTA chest 05/09/2020 FINDINGS: Bipolar pacer on the left unchanged. Sternotomy and left rib hardware unchanged. Possible left perihilar infiltrate unchanged. There is no demonstrated pleural abnormality. Normal size heart. Normal mediastinum and cata. Normal visualized pulmonary arteries. Normal visualized aortic arch and descending thoracic aorta. Normal visualized thoracic spine. Normal visualized ribs, clavicles, and shoulders. There is no demonstrated abnormality of the visualized soft tissue structures of the upper abdomen. RAD/Chest 1 View IMPRESSION: Stable possible left perihilar infiltrate Electronically Signed: Minor Gaviria MD at 20:32 EDT , Service support ,
--- NOTE | 2020-05-18 17:25 | EKG12_ITS ---
Test Reason : Blood Pressure : / mmHG Vent. Rate : 067 BPM Atrial Rate : 067 BPM P-R Int : 256 ms QRS Dur : 120 ms QT Int : 442 ms P-R-T Axes : 072 -24 115 degrees QTc Int : 467 ms Sinus rhythm with 1st degree A-V block Non-specific intra-ventricular conduction delay Nonspecific ST and T wave abnormality Abnormal ECG Confirmed by PADILLA GUALLPA, CALI ([id number]), editor sound MODESTA FISHMAN ([id number]) on 05/23/2020 7:41:48 AM Referred By: COLT Confirmed By:CALI CAUSEY MD
--- NOTE | 2020-05-18 17:25 | CT_ITS ---
We are attempting to reach an attending provider to discuss findings. An addendum with communication details will be sent when the communication is complete. STUDY: CT BRAIN WITHOUT CONTRAST REASON FOR EXAM: Male, 69 years old. CVA RADIATION DOSAGE (If Supplied By Facility): CTDIvol = ( ) mGy, DLP = ( 863.6 ) mGycm TECHNIQUE: Transaxial CT imaging of the brain was performed without administration of intravenous contrast material. Individualized dose optimization techniques were used for this CT. COMPARISON: CT brain 04/08/2020 FINDINGS: Normal soft tissue structures. Normal calvarium. Normal size ventricles and extra-axial spaces for the patient''s age. Normal white matter tracts of the cerebral hemispheres. Normal basal ganglia and thalami. Normal brainstem. Normal cerebellum. There is no intracranial hemorrhage. There are no findings of an acute ischemic infarction. Normal visualized paranasal sinuses. CT/STROKE Brain/Head without Cont IMPRESSION: No acute disease Electronically Signed: Minor Gaviria MD at 17:37 EDT , Service support ,
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
[2020-05-18 17:41] LABS: Absolute Lymphocyte Count 0.95 X10^3/uL (0.83-4.51); Absolute Neutrophil Count 2.7 X10^3/uL (2.0-7.7); Basophil# 0.02 X10^3/uL; Basophil% 0.5 % (0-1); Eosinophils% 2.4 % (0-5); Hematocrit 33.6 % (40-54); Hemoglobin 9.5 g/dL (13.0-16.5); Lymphocyte # 0.95 X10^3/ul (4.0); Lymphocyte % 22.8 % (19-41); Mean Corp Hgb Conc 28.3 g/dL (32-36); Mean Corpuscular Hgb 24.5 pg (27.0-32.0); Mean Corpuscular Volume 86.6 fL (80-94); Mean Platelet Vol. 11.2 fl (6.2-12.0); Monocyte# 0.35 X10^3/uL; Monocyte% 8.4 % (0-10); NRBC Flagged by Analyzer 0 % (0-5); Neutrophil # 2.73 X10^3/uL (2.7-7.7); Neutrophil % 65.7 % (47-70); Platelet Count 214 K/mm3 (150-450); RBC Distribution Width CV 16.7 % (11.6-14.6); RBC Distribution Width SD 53.1 fl (35.1-43.9); Red Blood Count 3.88 M/mm3 (4.6-6.2); White Blood Count 4.2 K/mm3 (4.4-11.0)
[2020-05-18 18:04] LABS: Anion Gap 1 (5-15); BUN 17 mg/dL (7-18); BUN/Creat Ratio 22.8 RATIO (10-20); Calcium,Total 8.4 mg/dL (8.5-10.1); Chloride 104 mmol/L (98-107); Creatinine, Serum 0.74 mg/dL (0.70-1.30); EST Glomerular Filtration Rate 111 mL/min (>60); Est Glom Filt Rate - Afr Amer 134 mL/min (>60); Estimated Creatinine Clearance 71.99 ml/min; Glucose 170 mg/dL (74-106); Potassium 4.9 mmol/L (3.5-5.1); Sodium Level 138 mmol/L (136-145)
[2020-05-18 18:12] LABS: International Normalized Ratio 1.3; Prothrombin Time (Protime)PT. 15.9 SECONDS (11.7-14.9)
[2020-05-18 18:13] LABS: Partial Thromboplast Time 47.2 Seconds (24.1-36.2)
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
[2020-05-18 21:36] LABS: Bedside Glucose 149 mg/dL (70-110)
--- NOTE | 2020-05-18 23:00 | CPS ---
pt's home CPAP unit set up with 4 lpm O2 bleed in
[2020-05-19] VITALS (13 sets, daily range): BP systolic 129–160; BP diastolic 45–79; PULSE 60–69; RESP 18–20; TEMP 36.4–37.1; O2SAT 93–98
[2020-05-19] MEDS: Aspirin 300 MG Suppository RC (00:36)
[2020-05-19 05:41] LABS: Bedside Glucose 142 mg/dL (70-110)
[2020-05-19 06:23] LABS: Absolute Lymphocyte Count 0.97 X10^3/uL (0.83-4.51); Absolute Neutrophil Count 2.6 X10^3/uL (2.0-7.7); Basophil# 0.01 X10^3/uL; Basophil% 0.2 % (0-1); Eosinophil# 0.12 X10^3/uL; Eosinophils% 2.9 % (0-5); Hematocrit 32.5 % (40-54); Hemoglobin 9.1 g/dL (13.0-16.5); Lymphocyte # 0.97 X10^3/ul (4.0); Lymphocyte % 23.8 % (19-41); Mean Corpuscular Hgb 24.4 pg (27.0-32.0); Mean Corpuscular Volume 87.1 fL (80-94); Mean Platelet Vol. 9.9 fl (6.2-12.0); Monocyte# 0.37 X10^3/uL; Monocyte% 9.1 % (0-10); NRBC Flagged by Analyzer 0 % (0-5); Neutrophil % 63.8 % (47-70); Platelet Count 176 K/mm3 (150-450); RBC Distribution Width CV 16.6 % (11.6-14.6); RBC Distribution Width SD 52.6 fl (35.1-43.9); Red Blood Count 3.73 M/mm3 (4.6-6.2); White Blood Count 4.1 K/mm3 (4.4-11.0)
[2020-05-19 07:03] LABS: Anion Gap 1 (5-15); BUN 15 mg/dL (7-18); BUN/Creat Ratio 24.8 RATIO (10-20); Calcium,Total 8.5 mg/dL (8.5-10.1); Chloride 103 mmol/L (98-107); Cholesterol 79 mg/dL (200); EST Glomerular Filtration Rate 140 mL/min (>60); Est Glom Filt Rate - Afr Amer 170 mL/min (>60); Estimated Creatinine Clearance 71.99 ml/min; Glucose 150 mg/dL (74-106); High Density Lipoprotein 34 mg/dL; Potassium 3.7 mmol/L (3.5-5.1); Sodium Level 141 mmol/L (136-145); Triglycerides 115 mg/dL; Very Low Density Lipoprotein 23 mg/dL (5-40)
[2020-05-19 09:31] LABS: Hemoglobin A1c 7.1 % (3.8-5.6)
[2020-05-19] MEDS: Cholecalciferol (VIT D3) 25 MCG TABLET (1,000 UNITS) 75 MCG PO (09:57)
[2020-05-19] MEDS: Ranolazine 500 MG Tablet PO ×2 (09:57→22:43)
[2020-05-19] MEDS: Escitalopram Oxalate 10 MG Tablet PO (09:57)
[2020-05-19] MEDS: Clopidogrel Bisulfate 75 MG Tablet PO (09:57)
[2020-05-19] MEDS: Multivitamins,Ther W-Minerals Tablet 1 TABLET PO (09:57)
[2020-05-19] MEDS: Furosemide 20 MG Tablet PO (09:57)
[2020-05-19] MEDS: Potassium Chloride Oral Tablet 20 MEQ PO (09:57)
[2020-05-19] MEDS: Finasteride 5 MG Tablet PO (10:06)
[2020-05-19] MEDS: Insulin Lispro 100 UNIT/ML INSULN.PEN SC ×3 (11:20→22:45)
[2020-05-19 11:41] LABS: Bedside Glucose 268 mg/dL (70-110)
--- NOTE | 2020-05-19 11:50 | CASEMGMT ---
KRISTI GERONIMO readmission note: Prior admission: Pt admitted 05/09 w/resp failure, PNA, and severe sepsis. Discharged home 05/12 w/[facility]: SN, PT/OT. Palliative care referral was made. Pt discharged home on Levaquin and instructed to f/u with PCP in one week and cardiology in 1-2 weeks. Current admission: Admitted 05/18/20 w/stroke-like symptoms. Pt had left-sided weakness and unable to speak @ home. EMS was called. CT/CTA negative for large vessel occlusion or acute bleeding. Pt unable to have MRI done d/t incompatibility w/pacemaker. KRISTI CM to room to meet with pt and pt's who is at bedside. Pt is sitting up in recliner chair in room. Pt states he feels that he is back @ his baseline. PT/OT evals pending. Per /pt, pt has been compliant w/taking meds as instructed. states she had to cancel a dental appt since last admit d/t she was feeling ill and then pt admitted back to [facility] before he could go to other scheduled appts. Pt/ wish for pt to return home @ discharge. states pt has the following appts scheduled: 05/21: telephone appt w/ diabetic doctor 05/23: Julito w/[facility] for pacemaker check. 06/07: Trauma surgeon Dr William Jasso re: rib fracture/recent placment of plates/screws. aware pt also to have appt with [place] PCP and cardiology. Preferred [facility]acy: [facility] [place]: [place]/[facility] Prescription Benefit: [facility] LNOK: Lucina Cintron, /HPOA Living Arrangements: Pt lives with in 1 story home with 1 step in. supportive and manages pt's medications/appts. Transportation: drives DME: Pt has the following DME: cane, walker, electric scooter, grab bars, shower chair, bipap, and 2L continuous home oxygen thru the [facility] and 4 L/ M w/exertion. HHC: Pt is active with [facility]. Pt/ would like for pt to resume this service. states that therapy told them that therapy was no longer needed, but would be agreeable to having them evaluate pt again to determine if continued therapy is recommended. Will add PT/OT on to NAWAF orders. Palliative Care: Palliative care referral was made during pt?s last admission. states they are awaiting for Palliative care to call to schedule an appt. D/C Plan: Home w/NAWAF w/[facility]: SN. Add PT/OT to eval and treat. Wendy JUANN RN CM
--- NOTE | 2020-05-19 12:37 | PCM.PN.HOSP ---
Patient Problems: Active and Suspected Problems (Last Reviewed 05/19/20 @ 01:[address] Carlos Alberto Fermin MD) Stroke-like symptoms (Acute) Subjective: Feels back to baseline. Is able to speak again. Denies any lightheadedness or dizziness. No chest pain or shortness of breath. He is continuing to cough the chest x-ray shows stable pulmonary markings from his previous pneumonia and he is afebrile without a leukocytosis. Vitals/I&O's: Vital Signs Temp Pulse Resp BP Pulse Ox 97.6 F L 60 18 148/72 H 98 05/19/20 07:59 05/19/20 07:59 05/19/20 07:59 05/19/20 07:59 05/19/20 07:59 Oxygen Flow Rate (L/min) 4 Oxygen Delivery Method Nasal Cannula Weight: 232 lb 2.348 oz Body Mass Index (BMI) 33.3 Finger Stick Blood Glucose 220 Intake and Output for Last 24 Hours 05/17/20 05/18/20 05/19/20 23:59 23:59 23:59 Intake Total 460 / 460 Output Total 1100 / 1100 Balance -640 / -640 General: Alert, Oriented x3, Cooperative, No apparent distress HEENT: Atraumatic, PERRLA, EOMI, Normocephalic Oral: Moist Mucosa Neck: Supple, No JVD Lungs: Clear to auscultation, Normal air movement, No rhonchi, No wheeze, No rales, Diminished Cardiovascular: Regular rate, Regular Rhythm, Normal S1, Normal S2, No murmurs Abdomen: Soft, Non Tender, Non-Distended, No Hepato-splenomegaly Extremities: No edema, Capillary Refill Less than 3 Seconds Skin: No rashes, No breakdown Neurological: Cranial nerves II-XII grossly intact, Deep Tendon Reflexes 2+/4 and Symmetrical, Neuro grossly intact, Motor Exam 5/5 strength throughout, Sensory exam intact to light touch and pain Psych/Mental Status: Normal Affect, Appropriate Laboratory Results 05/18/20 17:25: WBC 4.2 L, RBC 3.88 L, Hgb 9.5 L, Hct 33.6 L, MCV 86.6, MCH 24.5 L, MCHC 28.3 L, RDW Std Deviation 53.1 H, RDW Coeff of Cinda 16.7 H, Plt Count 214, MPV 11.2, Immature Gran % (Auto) 0.200, Neut % (Auto) 65.7, Lymph % (Auto) 22.8, Story % (Auto) 8.4, Eos % (Auto) 2.4, Baso % (Auto) 0.5, Absolute Neuts (auto) 2.7, Absolute Lymphs (auto) 0.95, Nucleated RBC % 0 05/18/20 17:25: Sodium 138, Potassium 4.9, Chloride 104, Carbon Dioxide 33.0 H, Anion Gap 1 L, BUN 17, Creatinine 0.74, Estim Creat Clear Calc 71.99, Est GFR (MDRD) Af Amer 134, Est GFR (MDRD) Non-Af 111, BUN/Creatinine Ratio 22.8 H, Glucose 170 H, Calcium 8.4 L, Troponin I < 0.015 05/18/20 17:39: PT 15.9 H, INR 1.3, APTT 47.2 H 05/18/20 21:30: POC Glucose 149 H 05/19/20 05:28: POC Glucose 142 H 05/19/20 06:04: WBC 4.1 L, RBC 3.73 L, Hgb 9.1 L, Hct 32.5 L, MCV 87.1, MCH 24.4 L, MCHC 28.0 L, RDW Std Deviation 52.6 H, RDW Coeff of Cinda 16.6 H, Plt Count 176, MPV 9.9, Immature Gran % (Auto) 0.200, Neut % (Auto) 63.8, Lymph % (Auto) 23.8, Story % (Auto) 9.1, Eos % (Auto) 2.9, Baso % (Auto) 0.2, Absolute Neuts (auto) 2.6, Absolute Lymphs (auto) 0.97, Nucleated RBC % 0 05/19/20 06:04: Sodium 141, Potassium 3.7, Chloride 103, Carbon Dioxide 37.0 H, Anion Gap 1 L, BUN 15, Creatinine 0.60 L, Estim Creat Clear Calc 71.99, Est GFR (MDRD) Af Amer 170, Est GFR (MDRD) Non-Af 140, BUN/Creatinine Ratio 24.8 H, Glucose 150 H, Calcium 8.5, Triglycerides 115, Cholesterol 79, LDL Cholesterol 22, VLDL Cholesterol 23, HDL Cholesterol 34 L 05/19/20 06:04: Hemoglobin A1c 7.1 H 05/19/20 11:17: POC Glucose 268 H Current Medications Acetaminophen (Acetaminophen 325 Mg Tablet) 650 mg PO Q6H PRN PRN PRN Reason: Pain Score 1-10/Temp > 100.7 F Aspirin (Aspirin 81 Mg Tab.Chew) 81 mg PO DAILY@0800 [facility] Aspirin (Aspirin 300 Mg Suppository) 300 mg RC DAILY [facility] Last Admin: 05/19/20 00:36 Dose: 300 mg Documented by: Atorvastatin Calcium (Atorvastatin Calcium 80 Mg Tablet) 80 mg PO QHS [facility] Last Admin: 05/18/20 21:31 Dose: Not Given Documented by: Cholecalciferol (Cholecalciferol (Vit D3) 25 Mcg Tablet (1,000 Units)) 75 mcg PO DAILY [facility] Last Admin: 05/19/20 09:57 Dose: 75 mcg Documented by: Clopidogrel Bisulfate (Clopidogrel Bisulfate 75 Mg Tablet) 75 mg PO DAILY [facility] Last Admin: 05/19/20 09:57 Dose: 75 mg Documented by: Dextrose (Dextrose 50%-Water 25 Gm/50 Ml Disp.Syrin) 0 gm IV X1 PRN; Protocol PRN Reason: Hypoglycemia Enoxaparin Sodium (Enoxaparin 40 Mg/0.4 Ml Syringe) 40 mg SC DAILY [facility] Last Admin: 05/19/20 10:00 Dose: Not Given Documented by: Escitalopram Oxalate (Escitalopram Oxalate 10 Mg Tablet) 10 mg PO DAILY [facility] Last Admin: 05/19/20 09:57 Dose: 10 mg Documented by: Finasteride (Finasteride 5 Mg Tablet) 5 mg PO DAILY [facility] Last Admin: 05/19/20 10:06 Dose: 5 mg Documented by: Furosemide (Furosemide 20 Mg Tablet) 20 mg PO DAILY [facility] Last Admin: 05/19/20 09:57 Dose: 20 mg Documented by: Glucagon (Glucagon 1 Mg/Ml Syringe) 1 mg IM .X1 PRN PRN Reason: Hypoglycemia Hydralazine HCl (Hydralazine 20 Mg/Ml Vial) 5 mg IV Q30M PRN PRN Reason: to maintain BP goals Pantoprazole Sodium 40 mg/ (Sodium Chloride) 110 mls @ 330 mls/hr IV Q12 [facility] Last Infusion: 05/19/20 10:16 Dose: Infused Documented by: Insulin Human Lispro (Insulin Lispro 100 Unit/Ml Insuln.Pen) 0 unit SC Q6 [facility]; Protocol Last Admin: 05/19/20 11:20 Dose: 6 u Documented by: Labetalol HCl (Labetalol (Prefilled) 20 Mg/4 Ml) 10 - 20 mg IV Q10M PRN PRN PRN Reason: to Maintain BP Goals Multivitamins/Minerals (Multivitamins,Ther W-Minerals Tablet) 1 tablet PO DAILYCM [facility] Last Admin: 05/19/20 09:57 Dose: 1 tablet Documented by: Potassium Chloride (Potassium Chloride Oral Tablet 20 Meq) 20 meq PO DAILY [facility] Last Admin: 05/19/20 09:57 Dose: 20 meq Documented by: Ranolazine (Ranolazine 500 Mg Tablet) 500 mg PO BID [facility] Last Admin: 05/19/20 09:57 Dose: 500 mg Documented by: Sodium Chloride (0.9% Saline Lock 10 Ml Syringe) 10 - 40 ml IV UD PRN PRN Reason: SALINE FLUSH Tamsulosin HCl (Tamsulosin Hcl 0.4 Mg Capsule) 0.4 mg PO QHS [facility] Last Admin: 05/18/20 21:30 Dose: Not Given Documented by: Medical Necessity - Tobacco Use Smoking Status: Former smoker Tobacco Use: Cigarettes, Cigars Assessment/Plan All Active Problems (Last Reviewed 05/19/20 @ 01:[address] Carlos Alberto Fermin MD) Stroke-like symptoms (Acute) 1. Stroke symptoms -Symptoms have resolved NIH is 0. He can get an MRI therefore we will keep another day and get a CT scan in the morning -Speech is back to baseline and his mutism has resolved could potentially have been a psychogenic component -PT/OT evaluation as well as speech therapy evaluation -Continue with Lipitor, aspirin, and Plavix, there is no A. fib on the monitor so far therefore he is at maximal therapy for stroke regardless 2. HTN/HLD/CAD status post CABG and stents/pacemaker placement -Blood pressure is stable tinea with Lasix -Can resume home blood pressure medications -Continue with aspirin and Lipitor -Continue with Lasix 3. DM 2 -Continue to monitor blood sugar -Accu-Cheks AC at bedtime, will make adjustments as necessary 4. Anxiety/depression -Stable -Continue with Lexapro 5. BPH -Stable -Continue with Proscar and Flomax 6. GERD -Stable -Continue with PPI DVT: Lovenox OBSV E&M: 45411 Observation care discharge
--- NOTE | 2020-05-19 13:47 | CASEMGMT ---
Addendum entered by Carlos Riggins 05/19/20 15:22: Reviewed [facility] declination to transfer form with pt and pt signed form. Copy made and placed on chart and original given to pt. Form faxed to [facility] along w/demographics and H/P. Wendy ATKINSON RN, CM Original Note: KRISTI GERONIMO NOTE: Call placed to [facility] and spoke w/Susy. She was made aware pt has been admitted to [facility] and may be ready for discharge tomorrow. She states she will place pt on for NAWAF on Thursday. She was made aware PT/OT eval and treat will also be added to resumption of care order, as pt's states she was informed on Thu that therapy was discharging. Green sheet placed on chart for instructions for resumption of C services w/attached order for PT/OT eval and treat. H/P faxed to [facility] at this time. Wendy ATKINSON RN, CM
[2020-05-19 19:21] LABS: Bedside Glucose 182 mg/dL (70-110)
--- NOTE | 2020-05-19 22:30 | NURSING ---
This rn assuming care of this pt at this time.
[2020-05-19] MEDS: Carvedilol 25 MG Tablet PO (22:43)
[2020-05-19] MEDS: Atorvastatin Calcium 80 MG Tablet PO (22:43)
[2020-05-19] MEDS: Tamsulosin HCl 0.4 MG Capsule PO (22:43)
[2020-05-19] MEDS: guaiFENesin 10 ML UDC (200MG/10ML) PO (22:49)
[2020-05-19 22:51] LABS: Bedside Glucose 155 mg/dL (70-110)
[2020-05-20 03:01] VITALS: PULSE 62
[2020-05-20 04:35] VITALS: BP 123/54; PULSE 60; RESP 18; TEMP 36.6; O2SAT 96
[2020-05-20] MEDS: Insulin Lispro 100 UNIT/ML INSULN.PEN SC ×2 (06:36→11:00)
[2020-05-20 06:45] LABS: Bedside Glucose 153 mg/dL (70-110)
[2020-05-20 07:00] VITALS: PULSE 72
[2020-05-20 07:28] VITALS: O2SAT 98
--- NOTE | 2020-05-20 08:00 | CT_ITS ---
STUDY: CT BRAIN WITHOUT CONTRAST REASON FOR EXAM: Male, 69 years old. CVA RADIATION DOSAGE (If Supplied By Facility): CTDIvol = ( 44.99 ) mGy, DLP = ( 779.24 ) mGycm TECHNIQUE: Transaxial CT imaging of the brain was performed without administration of intravenous contrast material. Individualized dose optimization techniques were used for this CT. COMPARISON: 04/08/2020. FINDINGS: Normal soft tissue structures. Normal calvarium. There is mild cerebral atrophy with widening of the extra-axial spaces and ventricular dilatation. There are areas of decreased attenuation within the white matter tracts of the supratentorial brain, consistent with microvascular disease changes. Normal basal ganglia and thalami. Normal brainstem. Normal cerebellum. There is no intracranial hemorrhage. There are no findings of an acute ischemic infarction. Normal visualized paranasal sinuses. CT/Brain/Head without Contrast IMPRESSION: No significant change. No acute intracranial process. Electronically Signed: Pankaj Mckee MD at 8:26 EDT Tel , Service support ,
--- NOTE | 2020-05-20 09:06 | DCINST_ITS ---
- Discharge Diagnoses Current Active Problems: Current Active and Chronic Problems (Last Reviewed 05/19/20 @ 01:[address] Carlos Alberto Fermin MD) Stroke-like symptoms (Acute) CAD (coronary artery disease) (Chronic) UTI (urinary tract infection) (Chronic) Hypokalemia (Chronic) History of permanent cardiac pacemaker placement (Chronic 09/10/11) 2001 Atherosclerotic heart disease [place] coronary artery w/angina pectoris (Chronic) Cardiac catheterization 02/24/2017?normal LV size should not, EF 55%, [place] multivessel CAD, patent SVG to diagonal 1, OM 2, and RCA, MASON to LAD previously reported as atretic/nonfunctional (not reevaluated at that time), advised medical therapy History of coronary artery stent placement (Chronic) Previously placed stent has an instent 85 % restenosis followed by subtotal occlusion per [facility] 02/2017 H/O coronary artery bypass surgery (Chronic) CABG x 4 MASON-LAD, SVG-D1, SVG-OM2, SVG-RCA Essential (primary) hypertension (Chronic) EKATERINA (obstructive sleep apnea) (Chronic) Left-sided weakness (Chronic) Hyperlipidemia (Chronic) Obesity (Chronic) Chronic respiratory failure (Chronic) baseline 3L continuously DM type 2 (diabetes mellitus, type 2) (Chronic) Obstructive sleep apnea (Chronic) Seizure (Chronic) Aphasia (Chronic) CVA (cerebral vascular accident) (Chronic) Residual left-sided weakness You will use the following diet at home:: Calorie/Carbohydrate Controlled (specify 1200, 1400, etc), Cardiac Your food should be the consistency of: Regular Your liquids should be the consistency of: Regular/Thin Discharge Activity: Return to Normal Activity Call your doctor if you observe: Fever of 101 or Higher, Shortness of breath, Dizziness, Fainting spells, Swelling in the ankles, Chest pain, Increased palpitations (irregular heartbeat) Allergies/Adverse Reactions: Allergies ezetimibe Allergy (Verified 05/18/20 23:05) Unknown Fish Containing Products Allergy (Verified 05/18/20 23:05) Unknown glyburide Allergy (Verified 05/18/20 23:05) Unknown isosorbide Allergy (Verified 05/18/20 23:05) PT UNSURE OF REACTION lisinopril Allergy (Verified 05/18/20 23:05) Unknown metformin Allergy (Verified 04/02/21 23:05) Nausea metoprolol Allergy (Verified 05/18/20 23:05) Unknown simvastatin Allergy (Verified 05/18/20 23:05) Unknown Medications to take at Discharge Aspirin E.C. [Ecotrin] 81 mg PO DAILY@0800 06/11/18 Atorvastatin Calcium [Lipitor] 80 mg PO QHS 06/11/18 Cholecalciferol (VIT D3) [Vitamin D3] 3,000 units PO DAILY 06/11/18 Clopidogrel Bisulfate [Clopidogrel] 75 mg PO DAILY 06/11/18 Escitalopram Oxalate [Lexapro] 10 mg PO DAILY 06/11/18 Finasteride [Proscar] 5 mg PO DAILY 06/11/18 Furosemide [Lasix] 20 mg PO DAILY 06/11/18 Insulin Regular, Human [Humulin R U-500 Kwikpen] 110 unit SQ BREAKFAST 06/11/18 Insulin Regular, Human [Humulin R U-500 Kwikpen] 110 unit SQ QHS 06/11/18 Multivitamins,Ther W-Minerals [Multivitamin With Minerals (BKC)] 1 tablet PO DAILY 06/11/18 Acetaminophen [Tylenol Tablet] 650 mg PO Q6H PRN PRN tablet 06/21/18 Nitroglycerin (INPATIENT USE) [Nitrostat] 0.4 mg SUBLINGUAL Q5M PRN #30 tablet 07/22/18 Albuterol Inhaler [Ventolin Hfa] 1 - 2 puff INHALATION 4X/DAY PRN PRN 04/08/20 Potassium Chloride [Klor-Con M20] 20 meq PO DAILY 04/08/20 Ranolazine [Ranexa] 500 mg PO BID #0 04/10/20 Tamsulosin HCl [Flomax] 0.4 mg PO QHS #30 cap 04/10/20 Carvedilol [Coreg (Beta Sophy)] 25 mg PO BID #60 tab 05/12/20 Pantoprazole Sodium [Protonix] 40 mg PO BID 05/18/20 Primary Care Physician: [facility] [Primary Care Provider] - Please follow up with your Primary Care Physician in: 3-5 days Test Results: Test results from this visit will be discussed in further detail at your follow- up appointment, if applicable.
[2020-05-20 09:50] VITALS: BP 128/48; PULSE 61; RESP 18; TEMP 36.1; O2SAT 98
[2020-05-20] MEDS: Multivitamins,Ther W-Minerals Tablet 1 TABLET PO (09:55)
[2020-05-20] MEDS: Ranolazine 500 MG Tablet PO (09:55)
[2020-05-20] MEDS: Cholecalciferol (VIT D3) 25 MCG TABLET (1,000 UNITS) 75 MCG PO (09:55)
[2020-05-20] MEDS: Potassium Chloride Oral Tablet 20 MEQ PO (09:55)
[2020-05-20] MEDS: Finasteride 5 MG Tablet PO (09:55)
[2020-05-20] MEDS: Escitalopram Oxalate 10 MG Tablet PO (09:55)
[2020-05-20] MEDS: Furosemide 20 MG Tablet PO (09:55)
[2020-05-20] MEDS: Clopidogrel Bisulfate 75 MG Tablet PO (09:55)
[2020-05-20] MEDS: Carvedilol 25 MG Tablet PO (09:55)
[2020-05-20 11:16] LABS: Bedside Glucose 225 mg/dL (70-110)
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
--- NOTE | 2020-05-21 15:37 | CASEMGMT ---
KRISTI GERONIMO Discharge Follow-up Phone Call: SHAHZAD: Charmaine Strata: 3 Call Date: 05/21/20 Discharge Date: 05/20/20 Time of Call: 1535 Duration: 5 min Admitting Diagnosis: Stroke like symptoms KRISTI GERONIMO completed follow-up phone call after recent hospitalization. Patient states he is doing ok. Patient had no questions or concerns regarding discharge instructions. Patient aware to schedule follow-up appt with PCP. Patient was setup with [facility]. Patient had no further questions or concerns at this time.
== END 2020-05-20 11:20 | disposition home or self-care (01) | DRG 92 ==
LOC: ED 19:23 → PCU 19:43
PROVIDERS: Admitting Provider Hospitalist; Emergency Provider Emergency Medicine; Visit Provider Family Medicine
DX: R47.01 Aphasia (principal); N39.0 Urinary tract infection, site not specified; I69.354 Hemiplegia and hemiparesis following cerebral infarction affecting left non-dominant side; R47.1 Dysarthria and anarthria; G47.33 Obstructive sleep apnea (adult) (pediatric); E78.5 Hyperlipidemia, unspecified; K21.9 Gastro-esophageal reflux disease without esophagitis; E11.65 Type 2 diabetes mellitus with hyperglycemia; F32.9 Major depressive disorder, single episode, unspecified; I10 Essential (primary) hypertension; F41.9 Anxiety disorder, unspecified; N40.0 Benign prostatic hyperplasia without lower urinary tract symptoms; E87.6 Hypokalemia; I25.119 Atherosclerotic heart disease of native coronary artery with unspecified angina pectoris; Z95.5 Presence of coronary angioplasty implant and graft; Z95.0 Presence of cardiac pacemaker; Z87.01 Personal history of pneumonia (recurrent); Z95.1 Presence of aortocoronary bypass graft
CPT/HCPCS: 36415; 70450; 70496; 70498; 71045; 80048; 80061; 82962; 83036; 84484; 85025; 85610; 85730; 92610; 93005; 94762; 97162; 97165; 97802; 99285; J7040; Q9967; A4216

== ENCOUNTER 2020-05-29 23:17 | Inpatient (IN) | payer OTHER, MEDICARE, SELFPAY ==
[2020-05-18 19:51] VITALS: BMI 33.3
[2020-05-29 23:17] VITALS: BP 162/83; PULSE 81; RESP 20; TEMP 36.2; O2SAT 97; BMI 34.8
--- NOTE | 2020-05-29 23:34 | EKG12_ITS ---
Test Reason : SYNCOPYE Blood Pressure : / mmHG Vent. Rate : 070 BPM Atrial Rate : 070 BPM P-R Int : 262 ms QRS Dur : 120 ms QT Int : 440 ms P-R-T Axes : 085 -20 074 degrees QTc Int : 475 ms Sinus rhythm with 1st degree A-V block Nonspecific T wave abnormality Abnormal ECG Confirmed by PADILLA GUALLPA, CALI ([id number]), news copy editor NADINE FERRER ([id number]) on 05/30/2020 1:05:36 PM Referred By: Confirmed By:CALI CAUSEY MD
--- NOTE | 2020-05-29 23:34 | RAD_ITS ---
STUDY: X-RAY CHEST REASON FOR EXAM: Male, 69 years old. sob TECHNIQUE: AP COMPARISON: 05/18/2020 chest x-ray and CT chest from 05/09/2016 FINDINGS: Status post median sternotomy and CABG. Cardiac pacemaker is present from a left subclavian approach. The right lung remains clear. There is persistent hazy obscuration of the left lung base and hemidiaphragm. There is borderline cardiomegaly. Normal mediastinum and cata. Normal visualized pulmonary arteries. Normal visualized aortic arch and descending thoracic aorta. Normal visualized thoracic spine. There are multiple left rib fixations. There is no demonstrated abnormality of the visualized soft tissue structures of the upper abdomen. RAD/Chest 1 View (Portable) IMPRESSION: Persistent obscuration of the left lung base and hemidiaphragm likely due to persistent left pleural effusion and adjacent atelectasis. No significant radiographic changes. Electronically Signed: Eric Solis MD at 0:41 EDT Tel , Service support ,
--- NOTE | 2020-05-29 23:40 | ED.VISSUMM ---
- ER Visit Summary Date of Service: 05/29/20 Chief Complaint: Shortness of breath, syncope History of Present Illness: The patient is a 69 M presenting with shortness of breath and syncope. Patient states his shortness of breath has been ongoing for the past several days and has been progressively worsening. He has a productive cough. He denies fever. He complains of continual chest pain over the past several days. He states he has passed out several times today. He denies injury. He states he sometimes feels dizzy before passing out and sometimes has no warning. He has had to increase his home oxygen to 3 L today. He had a recent admission for CVA from May 18 to May 20. He was admitted from May 09- May 12 for pneumonia. is concerned that his symptoms are similar to when he had pneumonia. Physical Examination: Vitals are stable. Patient is afebrile. Alert no acute distress. Pulse ox 97% on nasal cannula HEENT exam is unremarkable. Neck is supple. Lungs are expiratory wheezing bilaterally. Heart is regular rate and rhythm. Abdomen is soft nontender nondistended. Extremities are unremarkable. Skin is warm and dry. No focal neurologic deficit. Remainder of exam is unremarkable. Emergency Department Course and Treatment: Patient was given albuterol, Atrovent aerosols. EKG is sinus rhythm rate of 70 with first-degree AV block. Chest x-ray read by myself and radiology shows persistent obscuration of the left lung base and hemidiaphragm likely due to persistent left pleural effusion and adjacent atelectasis. No significant radiographic changes. CBC shows hemoglobin 8.7. Chemistries show glucose 187, BUN 21. Urinalysis unremarkable. Troponin is negative. Lactic acid normal. Covid negative. D-dimer elevated at 2.54. Due to elevated D-dimer, CTA chest was obtained and shows no demonstrated pulmonary embolism or arterial dissection. Stable small left pleural effusion and adjacent lung atelectasis. Interval resolution of right pleural effusion. Due to patient's multiple syncopal episodes today, discussed with hospitalist for observation. Disposition: Observation Impression: Syncope, dyspnea This note was generated with [employer] dictation software. It may contain incorrect words, spelling, and punctuation that were not noted in review of the chart prior to signing ED Disposition - Plan for ED Patient: Disposition: Acute Care [facility]
[2020-05-29] MEDS: Ipratropium/Albuterol Sulfate 3 ML AMPUL.NEB INHALATION (23:46)
[2020-05-29 23:54] LABS: Absolute Lymphocyte Count 1.15 X10^3/uL (0.83-4.51); Absolute Neutrophil Count 3.6 X10^3/uL (2.0-7.7); Basophil# 0.01 X10^3/uL; Basophil% 0.2 % (0-1); Eosinophil# 0.08 X10^3/uL; Eosinophils% 1.5 % (0-5); Hematocrit 30.4 % (40-54); Hemoglobin 8.7 g/dL (13.0-16.5); Lymphocyte # 1.15 X10^3/ul (4.0); Lymphocyte % 21.9 % (19-41); Mean Corp Hgb Conc 28.6 g/dL (32-36); Mean Corpuscular Hgb 23.8 pg (27.0-32.0); Mean Corpuscular Volume 83.3 fL (80-94); Mean Platelet Vol. 9.9 fl (6.2-12.0); Monocyte# 0.47 X10^3/uL; Monocyte% 8.9 % (0-10); NRBC Flagged by Analyzer 0 % (0-5); Neutrophil # 3.55 X10^3/uL (2.7-7.7); Neutrophil % 67.5 % (47-70); Platelet Count 187 K/mm3 (150-450); RBC Distribution Width CV 17.1 % (11.6-14.6); RBC Distribution Width SD 51.7 fl (35.1-43.9); Red Blood Count 3.65 M/mm3 (4.6-6.2); White Blood Count 5.3 K/mm3 (4.4-11.0)
[2020-05-29 23:55] VITALS: O2SAT 97
[2020-05-30] VITALS (13 sets, daily range): BP systolic 152–159; BP diastolic 54–77; PULSE 62–78; RESP 14–24; TEMP 36.1–36.8; O2SAT 92–98; BMI 34.0
[2020-05-30 00:12] LABS: Anion Gap 3 (5-15); BUN 21 mg/dL (7-18); BUN/Creat Ratio 24.2 RATIO (10-20); Calcium,Total 8.2 mg/dL (8.5-10.1); Chloride 100 mmol/L (98-107); Creatinine, Serum 0.87 mg/dL (0.70-1.30); EST Glomerular Filtration Rate 92 mL/min (>60); Est Glom Filt Rate - Afr Amer 112 mL/min (>60); Estimated Creatinine Clearance 82.74 ml/min; Glucose 187 mg/dL (74-106); Potassium 3.6 mmol/L (3.5-5.1); Sodium Level 138 mmol/L (136-145)
[2020-05-30 00:16] LABS: D-Dimer Quantitative (DVT/PE) 2.54 FEU/ug/m (0.27-0.49)
[2020-05-30 00:17] LABS: Bacteria 0 SEEN /hpf (None Seen); Mucous, Urine 0 SEEN /hpf (<or=2+); Red Blood Cells-Urine 0 SEEN /hpf (0-5); Squamous Epithelial Cells - UA 0 SEEN /hpf (0-5)
--- NOTE | 2020-05-30 00:17 | CT_ITS ---
STUDY: CTA CHEST REASON FOR EXAM: Male, 69 years old. elevated d dimer RADIATION DOSAGE (If Supplied By Facility): CTDIvol = ( 18.49 ) mGy, DLP = ( 508.74 ) mGycm TECHNIQUE: The examination was performed with the intravenous administration of IV 100mL [id number]-370. Post-processing of the angiographic images was performed, with multiplanar reformation and 3D reconstruction. Individualized dose optimization techniques were used for this CT. COMPARISON: CTA chest from 05/09/2020 FINDINGS: Status post median sternotomy and CABG. Cardiac pacemaker is present from a left subclavian approach. Normal enhancement of the main pulmonary artery and right and left pulmonary arteries. Normal enhancement of the bilateral peripheral pulmonary arteries. There is no demonstrated pulmonary embolism. Normal thoracic aorta and visualized great vessels. There is no demonstrated aortic dissection. Normal heart and pericardium. Normal mediastinum. Normal hilar regions. Normal visualized trachea and bronchi. The lungs demonstrate centrilobular emphysematous changes. There is a small left pleural effusion with adjacent lung atelectasis. There are multiple left rib fixations. Normal visualized upper abdomen. Small right renal superior pole cyst. CT/CTA Chest W/WO Contrast IMPRESSION: No demonstrated pulmonary embolism or arterial dissection. Stable small left pleural effusion and adjacent lung atelectasis. Interval resolution of right pleural effusion. Electronically Signed: Eric Solis MD at 1:54 EDT Tel , Service support ,
[2020-05-30 00:18] LABS: Color, Urine Yellow (Yellow); Glucose, Dipstick 50 mg/dl (Normal); Ketone-Dipstick 5 mg/dl (Negative); Leukocyte Esterase-Dipstick 25 /ul (Negative); Nitrite-Dipstick Negative (Negative); Occult Blood-Urine Negative /ul (Negative); Protein-Dipstick 30 mg/dl (Negative); Specific Gravity, Urine 1.015 (1.002-1.030); Urine Clarity Clear (Clear); Urine Urobilinogen 4 mg/dl (Normal); Urine pH 6.5 (5.0 - 8.0)
[2020-05-30 00:20] LABS: Lactic Acid 1.9 mmol/L (0.4-1.9)
[2020-05-30 00:30] LABS: Transitional Epithelial - Ur 0-5 SEEN /hpf (0-5); Urine Bilirubin Dipstick 1 mg/dL (Negative); White Blood Cells 0-5 SEEN /hpf (0-5)
[2020-05-30 00:51] LABS: BNP,B-Type NATRIURETIC PEPTIDE 83.5 pg/mL (0-100)
--- NOTE | 2020-05-30 01:25 | ED.RN ---
ATTEMPTED THREE TIMES TO MAKE CONTACT WITH MARK [employer]OSS USING ALL THREE EXTENSION NUMBERS IN THE [employer], WITH NO ANSWER AT ANY OF THEM.
--- NOTE | 2020-05-30 01:33 | HP.PCM_ITS ---
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 Comment: Cardiac catheterization 02/24/2017?normal LV size should not, EF 55%, [place] multivessel CAD, patent SVG to diagonal 1, OM 2, and RCA, MASON to LAD previously reported as atretic/nonfunctional (not reevaluated at that time), advised medical therapy (6) Essential (primary) hypertension Status: Chronic (7) EKATERINA (obstructive sleep apnea) Status: Chronic (8) Hyperlipidemia Status: Chronic (9) Obesity Status: Chronic Qualifiers: Body mass index: BMI 34.0-34.9 (10) DM type 2 (diabetes mellitus, type 2) Status: Chronic (11) History of permanent cardiac pacemaker placement Status: Chronic Comment: 2001 (12) H/O coronary artery bypass surgery Status: Chronic Comment: CABG x 4 MASON-LAD, SVG-D1, SVG-OM2, SVG-RCA (13) History of coronary artery stent placement Status: Chronic Comment: Previously placed stent has an instent 85 % restenosis followed by subtotal occlusion per [facility] 02/2017 History of Present Illness Date of Admission: 05/30/20 Chief Complaint: Shortness of Breath, Cough The patient is a 69 year old M [who presents today with shortness of breath. Patient states that he has had continued shortness of breath and cough for the past 2 days without worsening today. Patient has multiple recent admissions for strokelike symptoms and pneumonia. Patient does not appear in distress, is not tachypneic, tachycardic, does not have a elevated white blood cell count and has no lactic acidosis.. Chest x-ray shows persistent obscuration of the left lung base and hemidiaphragm likely due to persistent left pleural effusion and adjacent atelectasis no significant radiographic changes. This is in comparison to chest x-ray from 05-18-20. Patient does not have any sputum production. Patient denies fever chills, chest pain, nausea, vomiting. Patient reports multiple syncopal episodes however vital signs have been stable since arrival to ER. ] Past Medical History Past Medical History (Chronic Problems): Chronic Problems (Last Reviewed 05/30/20 @ 01:40 by KELLY Villar) CAD (coronary artery disease) (Chronic) History of permanent cardiac pacemaker placement (Chronic 09/10/11) 2001 Atherosclerotic heart disease [place] coronary artery w/angina pectoris (Chronic) Cardiac catheterization 02/24/2017?normal LV size should not, EF 55%, [place] multivessel CAD, patent SVG to diagonal 1, OM 2, and RCA, MASON to LAD previously reported as atretic/nonfunctional (not reevaluated at that time), advised medical therapy History of coronary artery stent placement (Chronic) Previously placed stent has an instent 85 % restenosis followed by subtotal occlusion per [facility] 02/2017 H/O coronary artery bypass surgery (Chronic) CABG x 4 MASON-LAD, SVG-D1, SVG-OM2, SVG-RCA Essential (primary) hypertension (Chronic) EKATERINA (obstructive sleep apnea) (Chronic) Hyperlipidemia (Chronic) Obesity (Chronic) Chronic respiratory failure (Chronic) baseline 3L continuously DM type 2 (diabetes mellitus, type 2) (Chronic) Medical History: Medical History (Last Reviewed 05/30/20 @ 01:40 by Xuan Castillo NP-[place]) Atherosclerotic heart disease [place] coronary artery w/angina pectoris (Chronic) I25.119 Cardiac catheterization 02/24/2017?normal LV size should not, EF 55%, [place] multivessel CAD, patent SVG to diagonal 1, OM 2, and RCA, MASON to LAD previously reported as atretic/nonfunctional (not reevaluated at that time), advised medical therapy Essential (primary) hypertension (Chronic) I10 EKATERINA (obstructive sleep apnea) (Chronic) G47.33 Left-sided weakness (Chronic) R53.1 Hyperlipidemia (Chronic) E78.5 Obesity (Chronic) E66.9 Chronic respiratory failure (Chronic) J96.10 baseline 3L continuously Abnormal EKG (Inactive) R94.31 Allergies ezetimibe Allergy (Verified 05/18/20 23:05) Unknown Fish Containing Products Allergy (Verified 05/18/20 23:05) Unknown glyburide Allergy (Verified 05/18/20 23:05) Unknown isosorbide Allergy (Verified 05/18/20 23:05) PT UNSURE OF REACTION lisinopril Allergy (Verified 05/18/20 23:05) Unknown metformin Allergy (Verified 05/18/20 23:05) Nausea metoprolol Allergy (Verified 05/18/20 23:05) Unknown simvastatin Allergy (Verified 05/18/20 23:05) Unknown Home Medications: Ambulatory Orders Medication Instructions Recorded Aspirin E.C. [Ecotrin] 81 mg PO DAILY@0800 06/11/18 Atorvastatin Calcium [Lipitor] 80 mg PO QHS 06/11/18 Cholecalciferol (VIT D3) [Vitamin 3,000 units PO DAILY 06/11/18 D3] Clopidogrel Bisulfate [Clopidogrel] 75 mg PO DAILY 06/11/18 Escitalopram Oxalate [Lexapro] 10 mg PO DAILY 06/11/18 Finasteride [Proscar] 5 mg PO DAILY 06/11/18 Furosemide [Lasix] 20 mg PO DAILY 06/11/18 Insulin Regular, Human [Humulin R 110 unit SQ BREAKFAST 06/11/18 U-500 Kwikpen] Insulin Regular, Human [Humulin R 110 unit SQ QHS 06/11/18 U-500 Kwikpen] Multivitamins,Ther W-Minerals 1 tablet PO DAILY 06/11/18 [Multivitamin With Minerals (BKC)] Acetaminophen [Tylenol Tablet] 650 mg PO Q6H PRN PRN tablet 06/21/18 Nitroglycerin (INPATIENT USE) 0.4 mg SUBLINGUAL Q5M PRN #30 07/22/18 [Nitrostat] tablet Albuterol Inhaler [Ventolin Hfa] 1 - 2 puff INHALATION 4X/DAY PRN 04/08/20 PRN Potassium Chloride [Klor-Con M20] 20 meq PO DAILY 04/08/20 Ranolazine [Ranexa] 500 mg PO BID #0 04/10/20 Tamsulosin HCl [Flomax] 0.4 mg PO QHS #30 cap 04/10/20 Carvedilol [Coreg (Beta Sophy)] 25 mg PO BID #60 tab 05/12/20 Pantoprazole Sodium [Protonix] 40 mg PO BID 05/18/20 Surgical History: Surgical History (Last Reviewed 05/30/20 @ 01:41 by Xuan Castillo NP-C) History of permanent cardiac pacemaker placement (Chronic) Onset Date: Z95.0 2002 History of coronary artery stent placement (Chronic) Z95.5 Previously placed stent has an instent 85 % restenosis followed by subtotal occlusion per [facility] 02/2017 H/O coronary artery bypass surgery (Chronic) Z95.1 CABG x 4 MASON-LAD, SVG-D1, SVG-OM2, SVG-RCA Surgical History: angioplasty, coronary bypass surgery, pacemaker implantation, - - CABG x 4 and PCI, Cholecystectemy, appendectomy, Hernia repair, L knee, recent trauma with ? Thoracic surgery for flailed chest, pacemaker placement. Psychiatric History: Anxiety, Depression Lives: Spouse/ Significant Other Smoking Status: Former smoker Alcohol: None Drugs: None - *Family History Maternal History Items: Diabetes, High Cholesterol, Heart Disease, Hypertension Paternal History Items: Cancer, - Review of Systems Constitutional: Denies: Chills, Fever, Weight Change HEENT: Denies: Head Aches, Sinus Congestion, Sinus Drainage Cardiovascular: Reports: Syncope. Denies: Chest Pain, Palpitations Respiratory: Reports: Cough, Shortness of Breath Gastrointestinal: Denies: Abdominal Pain, Nausea, Vomiting Genitourinary: Denies: Dysuria Musculoskeletal: Denies: Joint Pain, Joint Tenderness Skin: Denies: Rash, Wounds Neurological: Denies: Numbness, Tingling, Focal weakness Psychiatric: Denies: Anxiety, Depression, Homicidal Ideations, Suicidal Ideations Hematologic/ Lymphatic: Denies: Easy Bruising, Easy Bleeding VTE Information - Inpt Only VTE Present on Admission: No VTE Mechan Device Prophylaxis: None VTE Pharm Prophylaxis ordered?: No Patient Problems: Active and Suspected Problems (Last Reviewed 05/30/20 @ 01:40 by Xuan Castillo, INSULATION MANAGER-C) Dyspnea (Acute) Elevated d-dimer (Acute) Syncope (Acute) - Physical Exam Vitals/I&O's: Vital Signs Temp Pulse Resp BP Pulse Ox 97.2 F L 68 20 H 152/68 H 96 05/29/20 23:17 05/30/20 01:17 05/30/20 01:17 05/30/20 01:17 05/30/20 01:17 Oxygen Flow Rate (L/min) 3 Oxygen Delivery Method Nasal Cannula Weight: 243 lb Body Mass Index (BMI) 34.8 Finger Stick Blood Glucose 220 General: Alert, Oriented x3, Cooperative HEENT: Atraumatic, PERRLA, EOMI, Normocephalic Neck: Supple, No JVD, Negative Carotid Bruits Lungs: Clear to auscultation, Normal air movement Cardiovascular: Regular rate, Regular Rhythm, Normal S1, Normal S2, No murmurs Abdomen: Bowel Sounds Present, Soft, Non Tender Extremities: No edema, Capillary Refill Less than 3 Seconds, Peripheral Pulses Normal Skin: No rashes, No breakdown Musculoskeletal: No Tenderness to Palpation of Joints or Extremities Neurological: Cranial nerves II-XII grossly intact Psych/Mental Status: Normal Affect, Appropriate Microbiology Past 72 Hours 05/30/20 23:55 Nasal Secretion SARS-CoV-2 Antigen (Rapid) - Final Laboratory Results 05/29/20 23:47: WBC 5.3, RBC 3.65 L, Hgb 8.7 L, Hct 30.4 L, MCV 83.3, MCH 23.8 L , MCHC 28.6 L, RDW Std Deviation 51.7 H, RDW Coeff of Cinda 17.1 H, Plt Count 187, MPV 9.9, Immature Gran % (Auto) 0.000, Neut % (Auto) 67.5, Lymph % (Auto) 21.9, [place] % (Auto) 8.9, Eos % (Auto) 1.5, Baso % (Auto) 0.2, Absolute Neuts (auto) 3.6, Absolute Lymphs (auto) 1.15, Nucleated RBC % 0 05/29/20 23:47: D-Dimer Quant (PE/DVT) 2.54 H* 05/29/20 23:47: Sodium 138, Potassium 3.6, Chloride 100, Carbon Dioxide 35.0 H, Anion Gap 3 L, BUN 21 H, Creatinine 0.87, Estim Creat Clear Calc 82.74, Est GFR (MDRD) Af Amer 112, Est GFR (MDRD) Non-Af 92, BUN/Creatinine Ratio 24.2 H, Glucose 187 H, Calcium 8.2 L, Troponin I < 0.015 05/29/20 23:47: B-Natriuretic Peptide 83.5 05/29/20 23:55: Lactic Acid 1.9 05/30/20 00:05: Urine Color Yellow, Urine Clarity Clear, Urine pH 6.5, Ur Specific [place] 1.015, Urine Protein 30 H, Urine Glucose (UA) 50 H, Urine Ketones 5 H, Urine Occult Blood Negative, Urine Nitrite Negative, Urine Bilirubin 1 H, Urine Urobilinogen 4 H, Ur Leukocyte Esterase 25 H, Urine RBC 0 SEEN, Urine WBC 0-5 SEEN, Ur Squamous Epith Cells 0 SEEN, Ur Transition Epith Cell 0-5 SEEN, Urine Bacteria 0 SEEN, Urine Mucus 0 SEEN Assessment/Plan All Active Problems (Last Reviewed 05/30/20 @ 01:40 by KELLY Villar) Dyspnea (Acute) Elevated d-dimer (Acute) Syncope (Acute) Seizure (Resolved) 1. Dyspnea -Admit to PCU for observation -Patient was admitted on 05/09 with pneumonia, x-ray findings unchanged -We will evaluate patient for viral etiology, respiratory panel ordered. Rapid Covid negative -O2 per protocol, patient on 2 L chronically, currently on 3 L maintaining pulse ox 96 to 97% -Albuterol nebulizer tx PRN -Incentive spirometry 2. Syncope -Orthostatic vital signs -Previous neurological 05/20 work-up is negative. -Echocardiogram 05/11/2020 shows EF 60%, diastolic function indeterminate, left atrium is mildly enlarged. 3. Elevated D-dimer -CTA negative for PE 4. Atherosclerotic heart disease [place] coronary artery with angina pectoris -Patient has history of CABG and stent placement continue Plavix, Coreg, Ranexa and aspirin. 5. Essential primary hypertension -Continue carvedilol. 6. Obstructive sleep apnea -Home CPAP. 7. Hyperlipidemia -Continue Lipitor 8. Obesity in adult, BMI 34.0-34.9 -Lifestyle modification encouraged 9. Diabetes mellitus type 2 -Continue home insulin regimen -AC at bedtime blood sugars with sliding scale insulin ordered 10. History of permanent cardiac pacemaker placement -08/2001 11. History of coronary artery bypass surgery -CABG X4 12. History of coronary artery stent placement DVT prophylaxis-not indicated This patient was seen by KELLY Villar under the supervision of Dr. Fermin. 5 <Carlos Alberto Fermin - Last Filed: 05/30/20 03:52> History of Present Illness The patient is a 69 year old M [] Past Medical History Medical History: Medical History (Last Reviewed 05/30/20 @ 01:40 by KELLY Villar) Atherosclerotic heart disease [place] coronary artery w/angina pectoris (Chronic) I25.119 Cardiac catheterization 02/24/2017?normal LV size should not, EF 55%, [place] multivessel CAD, patent SVG to diagonal 1, OM 2, and RCA, MASON to LAD previously reported as atretic/nonfunctional (not reevaluated at that time), advised medical therapy Essential (primary) hypertension (Chronic) I10 EKATERINA (obstructive sleep apnea) (Chronic) G47.33 Left-sided weakness (Chronic) R53.1 Hyperlipidemia (Chronic) E78.5 Obesity (Chronic) E66.9 Chronic respiratory failure (Chronic) J96.10 baseline 3L continuously Abnormal EKG (Inactive) R94.31 Allergies ezetimibe Allergy (Verified 05/18/20 23:05) Unknown Fish Containing Products Allergy (Verified 05/18/20 23:05) Unknown glyburide Allergy (Verified 05/18/20 23:05) Unknown isosorbide Allergy (Verified 05/18/20 23:05) PT UNSURE OF REACTION lisinopril Allergy (Verified 05/18/20 23:05) Unknown metformin Allergy (Verified 05/18/20 23:05) Nausea metoprolol Allergy (Verified 05/18/20 23:05) Unknown simvastatin Allergy (Verified 05/18/20 23:05) Unknown Surgical History: Surgical History (Last Reviewed 05/30/20 @ 01:41 by Xuan Castillo INSULATION MANAGER-C) History of permanent cardiac pacemaker placement (Chronic) Onset Date: 09/10/11 Z95.0 2002 History of coronary artery stent placement (Chronic) Z95.5 Previously placed stent has an instent 85 % restenosis followed by subtotal occlusion per [facility] 02/2017 H/O coronary artery bypass surgery (Chronic) Z95.1 CABG x 4 MASON-LAD, SVG-D1, SVG-OM2, SVG-RCA - Physical Exam Vitals/I&O's: Vital Signs Temp Pulse Resp BP Pulse Ox 98.3 F 73 24 H 156/61 H 96 05/30/20 02:40 05/30/20 03:01 05/30/20 02:40 05/30/20 02:40 05/30/20 02:40 Oxygen Flow Rate (L/min) 3 Oxygen Delivery Method Nasal Cannula Weight: 107.4 kg Body Mass Index (BMI) 34.0 Finger Stick Blood Glucose 220 Microbiology Past 72 Hours 05/30/20 23:55 Nasal Secretion SARS-CoV-2 Antigen (Rapid) - Final Laboratory Results 05/29/20 23:47: WBC 5.3, RBC 3.65 L, Hgb 8.7 L, Hct 30.4 L, MCV 83.3, MCH 23.8 L , MCHC 28.6 L, RDW Std Deviation 51.7 H, RDW Coeff of Cinda 17.1 H, Plt Count 187, MPV 9.9, Immature Gran % (Auto) 0.000, Neut % (Auto) 67.5, Lymph % (Auto) 21.9, [place] % (Auto) 8.9, Eos % (Auto) 1.5, Baso % (Auto) 0.2, Absolute Neuts (auto) 3.6, Absolute Lymphs (auto) 1.15, Nucleated RBC % 0 05/29/20 23:47: D-Dimer Quant (PE/DVT) 2.54 H* 05/29/20 23:47: Sodium 138, Potassium 3.6, Chloride 100, Carbon Dioxide 35.0 H, Anion Gap 3 L, BUN 21 H, Creatinine 0.87, Estim Creat Clear Calc 82.74, Est GFR (MDRD) Af Amer 112, Est GFR (MDRD) Non-Af 92, BUN/Creatinine Ratio 24.2 H, Glucose 187 H, Calcium 8.2 L, Troponin I < 0.015 05/29/20 23:47: B-Natriuretic Peptide 83.5 05/29/20 23:55: Lactic Acid 1.9 05/30/20 00:05: Urine Color Yellow, Urine Clarity Clear, Urine pH 6.5, Ur Specific [place] 1.015, Urine Protein 30 H, Urine Glucose (UA) 50 H, Urine Ketones 5 H, Urine Occult Blood Negative, Urine Nitrite Negative, Urine Bilirubin 1 H, Urine Urobilinogen 4 H, Ur Leukocyte Esterase 25 H, Urine RBC 0 SEEN, Urine WBC 0-5 SEEN, Ur Squamous Epith Cells 0 SEEN, Ur Transition Epith Cell 0-5 SEEN, Urine Bacteria 0 SEEN, Urine Mucus 0 SEEN Current Medications Acetaminophen (Acetaminophen 325 Mg Tablet) 650 mg PO Q6H PRN PRN PRN Reason: Pain Score 1-10/Temp > 100.7 F Albuterol Sulfate (Albuterol 2.5 Mg/3 Ml Vial.Neb.) 2.5 mg INHALATION Q2H PRN PRN PRN Reason: SOB/Wheezing Guaifenesin (Guaifenesin 10 Ml Udc (200mg/10ml)) 20 ml PO Q4H PRN PRN PRN Reason: COUGH Insulin Human Lispro (Insulin Lispro 100 Unit/Ml Insuln.Pen) 0 unit SC ACHS ALEXUS; Protocol Melatonin (Melatonin 3 Mg Tablet) 3 mg PO QHS PRN PRN PRN Reason: INSOMNIA Ondansetron HCl (Ondansetron 4 Mg/2 Ml Vial) 4 mg IV Q8H PRN PRN PRN Reason: NAUSEA/VOMITING Sodium Chloride (0.9% Saline Lock 10 Ml Syringe) 10 - 40 ml IV UD PRN PRN Reason: SALINE FLUSH Assessment/Plan Patient was seen and examined. I agree with assessment and plan by Xuan Castillo, INSULATION MANAGER-C. Patient had been to the hospital multiple times for strokelike symptoms; unresponsiveness and others. Patient is alert oriented x3. Heart sounds S1-S2 present Lung clear to auscultate Abdomen bowel sounds present soft nontender nondistended Extremities no edema Impression Syncope/dyspnea/cough Related to impression of CTA chest. No demonstrated pulmonary embolism or acute dissection. Stable small left pleural effusion and adjacent lung atelectasis. Interval resolution of the right pleural effusion. Actual chest CTA was independently interpreted. Actual previous chest CTA was also independently interpreted. I agree with radiologist interpretation. We will check viral respiratory pathogen panel. Last pacemaker check was on 05/10/2020. At this point there is no objective symptoms to collaborate patient's present symptoms and multiple presentation and behaviors. If viral respiratory pathogen panel is negative would recommend that upon discharge patient follows up with psychiatry. Diabetes mellitus Patient with hyperglycemia on presentation Accu-Chek QA [facility] with correction scale insulin ordered. DVT Prophylaxis Observation status, low risk SCD ordered. OBSV E&M: [id number] Initial observation care L2
[2020-05-30] MEDS: Acetaminophen 325 MG Tablet 650 MG PO ×3 (03:43→20:46)
[2020-05-30] MEDS: guaiFENesin 10 ML UDC (200MG/10ML) 20 ML PO ×3 (03:43→18:39)
[2020-05-30 05:57] LABS: Absolute Lymphocyte Count 1.08 X10^3/uL (0.83-4.51); Absolute Neutrophil Count 3.4 X10^3/uL (2.0-7.7); Basophil# 0.01 X10^3/uL; Basophil% 0.2 % (0-1); Eosinophil# 0.12 X10^3/uL; Eosinophils% 2.4 % (0-5); Hematocrit 30.8 % (40-54); Hemoglobin 8.7 g/dL (13.0-16.5); Lymphocyte # 1.08 X10^3/ul (4.0); Lymphocyte % 21.6 % (19-41); Mean Corp Hgb Conc 28.2 g/dL (32-36); Mean Corpuscular Hgb 23.8 pg (27.0-32.0); Mean Corpuscular Volume 84.2 fL (80-94); Mean Platelet Vol. 10.4 fl (6.2-12.0); Monocyte# 0.43 X10^3/uL; Monocyte% 8.6 % (0-10); NRBC Flagged by Analyzer 0 % (0-5); Neutrophil # 3.36 X10^3/uL (2.7-7.7); Platelet Count 196 K/mm3 (150-450); RBC Distribution Width CV 17.1 % (11.6-14.6); RBC Distribution Width SD 52.7 fl (35.1-43.9); Red Blood Count 3.66 M/mm3 (4.6-6.2)
[2020-05-30 06:28] LABS: ALB/GLOB Ratio 0.8 RATIO (0.9-2.4); AST(SGOT) 12 U/L (15-37); Alanine Aminotransfer ALT/SGPT 13 U/L (16-61); Albumin, Serum 3.1 g/dL (3.2-5.0); Alkaline Phosphatase 124 U/L (45-117); Anion Gap 3 (5-15); BUN 18 mg/dL (7-18); BUN/Creat Ratio 24.5 RATIO (10-20); Calcium,Total 8.1 mg/dL (8.5-10.1); Chloride 99 mmol/L (98-107); Creatinine, Serum 0.74 mg/dL (0.70-1.30); EST Glomerular Filtration Rate 112 mL/min (>60); Est Glom Filt Rate - Afr Amer 136 mL/min (>60); Estimated Creatinine Clearance 71.99 ml/min; Globulin 3.9 g/dL (2.2-4.2); Glucose 158 mg/dL (74-106); Potassium 3.5 mmol/L (3.5-5.1); Sodium Level 137 mmol/L (136-145)
[2020-05-30] MEDS: Insulin Lispro 100 UNIT/ML INSULN.PEN SC ×4 (06:42→20:44)
[2020-05-30 06:50] LABS: Bedside Glucose 160 mg/dL (70-110)
[2020-05-30 12:35] LABS: Bedside Glucose 208 mg/dL (70-110)
--- NOTE | 2020-05-30 13:52 | CASEMGMT ---
Patient has a Healthcare Power of [employer] and a Healthcare Living Will on file at [facility]. His Lucina is his Healthcare Power of [employer]. Hoda MURRAY
--- NOTE | 2020-05-30 14:11 | PN_ITS ---
Patient Problems: Active and Suspected Problems (Last Reviewed 05/30/20 @ 01:40 by Xuan Castillo, HEATING ELEMENT REPAIRER-C) Dyspnea (Acute) Elevated d-dimer (Acute) Syncope (Acute) Subjective: Short of breath. Has had numerous syncopal episodes. No warning. Denies incontinence. Vitals/I&O's: Vital Signs Temp Pulse Resp BP Pulse Ox 36.3 C L 71 18 158/77 H 92 05/30/20 08:40 05/30/20 08:40 05/30/20 08:40 05/30/20 08:40 05/30/20 08:40 Oxygen Flow Rate (L/min) 4 Oxygen Delivery Method Nasal Cannula Weight: 107.4 kg Body Mass Index (BMI) 34.0 Finger Stick Blood Glucose 220 Intake and Output for Last 24 Hours 05/28/20 05/29/20 05/30/20 23:59 23:59 23:59 Intake Total 350 / 350 Output Total 425 / 425 Balance -75 / -75 General: Alert, No apparent distress HEENT: Atraumatic, Normocephalic Oral: Moist Mucosa, No Gingival or Mucosal Lesions/ Ulcerations Neck: No Nodes, Thyroid Normal Size and Texture Lungs: - - crackles in bases Cardiovascular: Regular rate, Regular Rhythm, Normal S1, Normal S2, No murmurs Abdomen: Bowel Sounds Present, Soft, Non Tender, Non-Distended, No Hepato- splenomegaly Extremities: No edema, No Calf Tenderness Psych/Mental Status: Appropriate, Flat Affect Microbiology Past 72 Hours 05/30/20 03:35 Mucosa - Nasopharyngeal Respiratory Panel (PCR) - Final 05/30/20 23:55 Nasal Secretion SARS-CoV-2 Antigen (Rapid) - Final Laboratory Results 05/29/20 23:47: WBC 5.3, RBC 3.65 L, Hgb 8.7 L, Hct 30.4 L, MCV 83.3, MCH 23.8 L , MCHC 28.6 L, RDW Std Deviation 51.7 H, RDW Coeff of Cinda 17.1 H, Plt Count 187, MPV 9.9, Immature Gran % (Auto) 0.000, Neut % (Auto) 67.5, Lymph % (Auto) 21.9, [place] % (Auto) 8.9, Eos % (Auto) 1.5, Baso % (Auto) 0.2, Absolute Neuts (auto) 3.6, Absolute Lymphs (auto) 1.15, Nucleated RBC % 0 05/29/20 23:47: D-Dimer Quant (PE/DVT) 2.54 H* 05/29/20 23:47: Sodium 138, Potassium 3.6, Chloride 100, Carbon Dioxide 35.0 H, Anion Gap 3 L, BUN 21 H, Creatinine 0.87, Estim Creat Clear Calc 82.74, Est GFR (MDRD) Af Amer 112, Est GFR (MDRD) Non-Af 92, BUN/Creatinine Ratio 24.2 H, G lucose 187 H, Calcium 8.2 L, Troponin I < 0.015 05/29/20 23:47: B-Natriuretic Peptide 83.5 05/29/20 23:55: Lactic Acid 1.9 05/30/20 00:05: Urine Color Yellow, Urine Clarity Clear, Urine pH 6.5, Ur Specific [place] 1.015, Urine Protein 30 H, Urine Glucose (UA) 50 H, Urine Ketones 5 H, Urine Occult Blood Negative, Urine Nitrite Negative, Urine Bilirubin 1 H, Urine Urobilinogen 4 H, Ur Leukocyte Esterase 25 H, Urine RBC 0 SEEN, Urine WBC 0-5 SEEN, Ur Squamous Epith Cells 0 SEEN, Ur Transition Epith Cell 0-5 SEEN, Urine Bacteria 0 SEEN, Urine Mucus 0 SEEN 05/30/20 05:26: WBC 5.0, RBC 3.66 L, Hgb 8.7 L, Hct 30.8 L, MCV 84.2, MCH 23.8 L , MCHC 28.2 L, RDW Std Deviation 52.7 H, RDW Coeff of Cinda 17.1 H, Plt Count 196, MPV 10.4, Immature Gran % (Auto) 0.200, Neut % (Auto) 67.0, Lymph % (Auto) 21.6, [place] % (Auto) 8.6, Eos % (Auto) 2.4, Baso % (Auto) 0.2, Absolute Neuts (auto) 3.4, Absolute Lymphs (auto) 1.08, Nucleated RBC % 0 05/30/20 05:26: Sodium 137, Potassium 3.5, Chloride 99, Carbon Dioxide 35.0 H, Anion Gap 3 L, BUN 18, Creatinine 0.74, Estim Creat Clear Calc 71.99, Est GFR (MDRD) Af Amer 136, Est GFR (MDRD) Non-Af 112, BUN/Creatinine Ratio 24.5 H, Glucose 158 H, Calcium 8.1 L, Total Bilirubin 0.50, AST 12 L, ALT 13 L, Alkaline Phosphatase 124 H, Total Protein 7.0, Albumin 3.1 L, Globulin 3.9, Albumin/Globulin Ratio 0.8 L 05/30/20 06:37: POC Glucose 160 H 05/30/20 12:29: POC Glucose 208 H Current Medications Acetaminophen (Acetaminophen 325 Mg Tablet) 650 mg PO Q6H PRN PRN PRN Reason: Pain Score 1-10/Temp > 100.7 F Last Admin: 05/30/20 09:56 Dose: 650 mg Documented by: Albuterol Sulfate (Albuterol 2.5 Mg/3 Ml Vial.Neb.) 2.5 mg INHALATION Q2H PRN PRN PRN Reason: SOB/Wheezing Guaifenesin (Guaifenesin 10 Ml Udc (200mg/10ml)) 20 ml PO Q4H PRN PRN PRN Reason: COUGH Last Admin: 05/30/20 09:26 Dose: 20 ml Documented by: Insulin Human Lispro (Insulin Lispro 100 Unit/Ml Insuln.Pen) 0 unit SC [facility]; Protocol Last Admin: 05/30/20 12:30 Dose: 2 unit Documented by: Melatonin (Melatonin 3 Mg Tablet) 3 mg PO QHS PRN PRN PRN Reason: INSOMNIA Ondansetron HCl (Ondansetron 4 Mg/2 Ml Vial) 4 mg IV Q8H PRN PRN PRN Reason: NAUSEA/VOMITING Sodium Chloride (0.9% Saline Lock 10 Ml Syringe) 10 - 40 ml IV UD PRN PRN Reason: SALINE FLUSH Medical Necessity - Tobacco Use Smoking Status: Former smoker Assessment/Plan All Active Problems (Last Reviewed 05/30/20 @ 01:40 by Xuan Castillo NP-C) Dyspnea (Acute) Elevated d-dimer (Acute) Syncope (Acute) Seizure (Resolved) 1. dyspnea reviewed CT showed resolution of Right pleural effusion, persistence of left pleural effusion respiratory panel, COVID-19, strep and legionella antigen negative. No need for abx. No additional therapy at this time. 2. syncope I doubt the patient's claims. He has no warning. It occurs while lying or standing. He wakes up not knowing where he is. Orthostatic vitals negative Check EEG 3. CAD continue clopidogrel, ASA, carvedilol 4. disposition: plan for [facility] upon discharge Inpatient E&M: 93346 Subs Hosp L2
[2020-05-30 14:36] LABS: Bedside Glucose 237 mg/dL (70-110)
[2020-05-30 15:51] LABS: Allen Test Positive; Base Excess 6 mmol/L (-2 to +2); Bicarbonate 30.6 mmol/L (22-26); Blood Gas Specimen Type ART; FI02 40; PO2 111 mmHG (75-100); SITE R Radial; SO2 98 % (95-99); Total Carbon Dioxide 32 mmol/L; pCO2 48.6 mmHg (35-45); pH 7.41 (7.35-7.45)
[2020-05-30 16:30] LABS: Bedside Glucose 201 mg/dL (70-110)
[2020-05-30] MEDS: Pantoprazole Sodium 40 MG Tablet PO (20:45)
[2020-05-30] MEDS: Carvedilol 25 MG Tablet PO (20:45)
[2020-05-30] MEDS: Ranolazine 500 MG Tablet PO (20:45)
[2020-05-30] MEDS: Tamsulosin HCl 0.4 MG Capsule PO (20:47)
[2020-05-30] MEDS: Atorvastatin Calcium 80 MG Tablet PO (20:47)
[2020-05-30] MEDS: Albuterol 2.5 MG/3 ML VIAL.NEB. INHALATION (21:14)
[2020-05-30 21:31] LABS: Bedside Glucose 196 mg/dL (70-110)
[2020-05-31] VITALS (16 sets, daily range): BP systolic 121–147; BP diastolic 50–76; PULSE 60–68; RESP 16–20; TEMP 36.3–36.7; O2SAT 92–98
--- NOTE | 2020-05-31 02:48 | CT_ITS ---
We are attempting to reach an attending provider to discuss findings. An addendum with communication details will be sent when the communication is complete. STUDY: CTA HEAD AND NECK WITH CONTRAST REASON FOR EXAM: Male, 69 years old. change in mental status RADIATION DOSAGE (If Supplied By Facility): CTDIvol = ( 20.69 ) mGy, DLP = ( 763.98 ) mGycm TECHNIQUE: CT angiography was performed with a multi-detector CT scanner. Data acquisition was obtained from the skull base through the vertex following intravenous administration of IV 100mL Isovue-370. MIP images were reconstructed from the axial data set. Post-processing of the angiographic images was performed, with multiplanar reformation and 3D reconstruction. Individualized dose optimization techniques were used for this CT. COMPARISON: CTA from 05/18/2020 FINDINGS: Normal bilateral petrous carotid arteries. Normal right cavernous carotid artery with a normal supraclinoid bifurcation. Normal left cavernous carotid artery with a normal supraclinoid bifurcation. Normal right A1 segments of the anterior cerebral artery. Normal left A1 segments of the anterior cerebral artery. Normal bilateral A2 segments of the anterior cerebral arteries. Normal right M1 and M2 segments of the middle cerebral arteries, with a normal M1 bifurcation. Normal left M1 and M2 segments of the middle cerebral arteries, with a normal M1 bifurcation. Normal bilateral vertebral arteries. Normal basilar artery with a normal basilar bifurcation. The visualized bilateral superior cerebellar (SCA) arteries are normal. Normal bilateral P1, P2 and visualized P3 segments of the posterior cerebral arteries. There is no demonstrated aneurysm of the grind[place] of [place]. There is no demonstrated abnormality of the visualized brain. AORTIC ARCH: Normal visualized aortic arch. Normal origins of the brachiocephalic, left common carotid, and left subclavian arteries. RIGHT CAROTID ARTERIES: Normal right common carotid artery (CCA). Normal right common carotid bulb. Normal origin of the right internal carotid (ICA) artery without a hemodynamically significant stenosis. Normal visualized cervical portion of the right internal carotid artery. Normal origin of the right external carotid artery (ECA). LEFT CAROTID ARTERIES: Normal left common carotid artery (CCA). Normal left common carotid bulb. Normal origin of the left internal carotid (ICA) artery without a hemodynamically significant stenosis. Normal visualized cervical portion of the left internal carotid artery. Normal origin of the left external carotid artery (ECA). VERTEBRAL ARTERIES: Normal right vertebral artery. Stable focal short segment mild to moderate narrowing of the proximal take off of the left vertebral artery due to calcified ASVD. CT/STROKE CTA Head AND Neck W/Con IMPRESSION: Stable mild to moderate narrowing of the proximal left vertebral artery otherwise negative CTA head and neck with contrast for stenosis or aneurysm. No interval change. Electronically Signed: Eric Solis MD at 3:32 EDT Tel , Service support ,
--- NOTE | 2020-05-31 02:49 | CT_ITS ---
STUDY: CT HEAD STROKE PROTOCOL W/O CONTRAST INJECTION REASON FOR EXAM: Male, 69 years old. change in mental status RADIATION DOSAGE (If Supplied By Facility): CTDIvol = ( ) mGy, DLP = ( ) mGycm TECHNIQUE: Transaxial CT imaging of the brain was performed without administration of intravenous contrast material. Individualized dose optimization techniques were used for this CT. COMPARISON: CT head from 05/20/2020 FINDINGS: Normal soft tissue structures. Normal calvarium. There is mild cerebral atrophy with widening of the extra-axial spaces and ventricular dilatation. There are areas of decreased attenuation within the white matter tracts of the supratentorial brain, consistent with microvascular disease changes. Normal basal ganglia and thalami. Normal brainstem. Normal cerebellum. There is no intracranial hemorrhage. There are no findings of an acute ischemic infarction. Normal visualized paranasal sinuses. Incidental Osteoma visualized within the frontal sinus. ASPECT score: 10 CT/STROKE Brain/Head without Cont IMPRESSION: Chronic involutional changes of the brain. N.B. : The above information has been verbally conveyed by Eric Solis MD to Lolyl Allen RN, on 05/31/2020 03:17:34 (ET). Electronically Signed: Eric Solis MD at 3:19 EDT Tel , Service support ,
--- NOTE | 2020-05-31 02:55 | PCM.PN.BLA ---
Progress Note Stroke team called for patient. Reportedly when nurse check on him his tongue was hanging out with his CPAP. Reportedly patient was not responding. Patient with mutism. With sternal rub patient moved all upper extremities. Patient unable to maneuver his hands falling on his eyes and nose except once. Patient to be taking to radiology for CT head and CTA head and neck per stroke protocol. Old ICU stroke neurologist beamed in and assessed outpatient. From [facility] neurologist review of imaging there was no critical stenosis or bleed. [facility] telemetry neurologist recommended that a CT scan be repeated in a.m. We will keep patient n.p.o. and will give rectal aspirin 325 mg daily. Speech consult. Radiologist called and reported that CTA and CT head is not any different from that on May 18, 2020. STROKE Vital Signs/Narrative: Vital Signs Temp Pulse Resp BP Pulse Ox 05/31/20 02:30 97.6 F L 66 16 128/55 H 95
[2020-05-31 02:56] LABS: Bedside Glucose 198 mg/dL (70-110)
[2020-05-31] MEDS: Aspirin 300 MG Suppository RC (03:47)
[2020-05-31 05:33] LABS: Absolute Lymphocyte Count 0.88 X10^3/uL (0.83-4.51); Absolute Neutrophil Count 3.3 X10^3/uL (2.0-7.7); Basophil# 0.01 X10^3/uL; Basophil% 0.2 % (0-1); Eosinophils% 2.1 % (0-5); Hematocrit 29.4 % (40-54); Hemoglobin 8.3 g/dL (13.0-16.5); Lymphocyte # 0.88 X10^3/ul (0.83-4.51); Lymphocyte % 18.9 % (19-41); Mean Corp Hgb Conc 28.2 g/dL (32-36); Mean Corpuscular Hgb 23.6 pg (27.0-32.0); Mean Corpuscular Volume 83.5 fL (80-94); Mean Platelet Vol. 10.5 fl (6.2-12.0); Monocyte# 0.37 X10^3/uL; Monocyte% 7.9 % (0-10); NRBC Flagged by Analyzer 0 % (0-5); Neutrophil # 3.29 X10^3/uL (2.7-7.7); Neutrophil % 70.7 % (47-70); Platelet Count 172 K/mm3 (150-450); RBC Distribution Width SD 51.8 fl (35.1-43.9); Red Blood Count 3.52 M/mm3 (4.6-6.2); White Blood Count 4.7 K/mm3 (4.4-11.0)
--- NOTE | 2020-05-31 05:48 | NURSING ---
Ortho VS done. Standing omitted at this time d/t pt condition. Pt's hair was washed by the REGISTRATION REP for the EEG this am.
[2020-05-31 05:50] LABS: Anion Gap 4 (5-15); BUN 13 mg/dL (7-18); BUN/Creat Ratio 22.2 RATIO (10-20); Calcium,Total 8.6 mg/dL (8.5-10.1); Chloride 100 mmol/L (98-107); Creatinine, Serum 0.58 mg/dL (0.70-1.30); EST Glomerular Filtration Rate 146 mL/min (>60); Est Glom Filt Rate - Afr Amer 176 mL/min (>60); Estimated Creatinine Clearance 71.99 ml/min; Glucose 199 mg/dL (74-106); Potassium 3.9 mmol/L (3.5-5.1); Sodium Level 137 mmol/L (136-145)
[2020-05-31 06:45] LABS: Bedside Glucose 185 mg/dL (70-110)
--- NOTE | 2020-05-31 07:21 | NURSING ---
CALLED LINNETTE SEGUNDO WITH UPDATE REGARDING THE STROKE ALERT THIS AM AND PLANNED TESTING TODAY.
[2020-05-31] MEDS: Ranolazine 500 MG Tablet PO ×2 (10:02→21:04)
[2020-05-31] MEDS: Pantoprazole Sodium 40 MG Tablet PO ×2 (10:02→21:04)
[2020-05-31] MEDS: Multivitamins,Ther W-Minerals Tablet 1 TABLET PO (10:02)
[2020-05-31] MEDS: Potassium Chloride Oral Tablet 20 MEQ PO (10:02)
[2020-05-31] MEDS: Cholecalciferol (VIT D3) 25 MCG TABLET (1,000 UNITS) 75 MCG PO (10:02)
[2020-05-31] MEDS: Escitalopram Oxalate 10 MG Tablet PO (10:02)
[2020-05-31] MEDS: Carvedilol 25 MG Tablet PO ×2 (10:02→21:04)
[2020-05-31] MEDS: Furosemide 20 MG Tablet PO (10:02)
[2020-05-31] MEDS: Clopidogrel Bisulfate 75 MG Tablet PO (10:02)
[2020-05-31] MEDS: Finasteride 5 MG Tablet PO (10:03)
[2020-05-31] MEDS: Insulin Lispro 100 UNIT/ML INSULN.PEN SC ×3 (11:27→21:04)
--- NOTE | 2020-05-31 11:33 | CASEMGMT ---
Addendum entered by Vida Karimi 05/31/20 13:17: Call back from Sharla at [facility] and she states that pt has been declining HHC therapy as well as nursing to come out. She states pt was scheduled to meet with [facility] palliative physician today but she notified him that pt is currently admitted and they will re-schedule it once pt home. NAWAF order placed and H&P/NAWAF order faxed to [facility] at this time. Obdulia BERRY CM Original Note: Pt is still active with [facility] for SN, PT/OT. Call to Sharla at [facility] to notify of admission and to see who palliative was set up with. Sharla to call this RN GRAZYNA back. Obdulia BERRY CM
[2020-05-31 11:45] LABS: Bedside Glucose 246 mg/dL (70-110)
[2020-05-31] MEDS: guaiFENesin 10 ML UDC (200MG/10ML) 20 ML PO ×2 (13:03→21:11)
--- NOTE | 2020-05-31 13:39 | CASEMGMT ---
Readmission chart review: Recent admissions for pt are 04/09-04/10/20 Syncope, 05/09-05/12/20 Resp failure, pna, severe sepsis, and 05/19-05/20/20 Stroke-like symptoms. As per previous note this visit, [facility] states pt has been refusing therapy as well as nursing to come see him but they are willing to resume care and pt was scheduled to see palliative. Pt returned to [facility] ED on 05/29/20 for cough/SOB and syncope. Pt had no change on chest CTA/brain CT from previous visits. Pt is normally on [facility] oxygen [facility]L [facility]. CM to follow for any further discharge planning/needs. SStzeynep BERRY CM
--- NOTE | 2020-05-31 14:50 | PCM.PN.HOSP ---
Patient Problems: Active and Suspected Problems (Last Reviewed 05/30/20 @ 01:40 by Xuan Castillo NP-C) Dyspnea (Acute) Elevated d-dimer (Acute) Syncope (Acute) Subjective: Events from last night reviewed. Patient apparently was having his tongue sticking out while he is on CPAP and not responding. Patient had no new focal deficits. Today patient feels fine and wants to know when he can go home. Vitals/I&O's: Vital Signs Temp Pulse Resp BP Pulse Ox 36.3 C L 60 18 134/70 H 96 05/31/20 10:00 05/31/20 10:00 05/31/20 10:00 05/31/20 10:00 05/31/20 12:42 Oxygen Flow Rate (L/min) 3 Oxygen Delivery Method Nasal Cannula Weight: 107.4 kg Body Mass Index (BMI) 34.0 Finger Stick Blood Glucose 198 Orthostatic Vital Signs Start: 05/31/20 05:45 Freq: q24h Status: Active Protocol: Activity Type Activity Date Activity User E-Sign Co-Sign Detail Recorded Client Recorded Date Recorded By Document 05/31/20 05:45 AF [id number] 05/31/20 05:48 AF 05/31/20 05:45 Orthostatic Vitals Lying -Blood Pressure (90/60-120/80) 144/72 H -Extremity Use Right Arm -Pulse Rate (60-100) 60 Sitting -Blood Pressure (90/60-120/80) 143/64 H -Extremity Use Right Arm -Pulse Rate (60-100) 60 Intake and Output for Last 24 Hours 05/29/20 05/30/20 05/31/20 23:59 23:59 23:59 Intake Total 910 / 910 120 / 120 Output Total 950 / 950 525 / 525 Balance -40 / -40 -405 / -405 General: Alert, No apparent distress, - - On CPAP. Afebrile. HEENT: Atraumatic, Normocephalic Oral: Moist Mucosa, No Gingival or Mucosal Lesions/ Ulcerations Neck: No Nodes, Thyroid Normal Size and Texture Lungs: Clear to auscultation, Normal air movement, No rhonchi, No wheeze, No rales Cardiovascular: Regular rate, Regular Rhythm, Normal S1, Normal S2, No murmurs Abdomen: Bowel Sounds Present, Soft, Non Tender, Non-Distended, No Hepato-splenomegaly Extremities: No edema, No Calf Tenderness Skin: No rashes, No breakdown Neurological: Cranial nerves II-XII grossly intact, - - Muscle strength 5-5 in the right upper extremity, 4 out of 5 in left upper extremity, 4-5 in the right lower extremity and 3 out of 5 in the left lower extremity. Psych/Mental Status: Normal Affect, Appropriate Microbiology Past 72 Hours 05/30/20 03:35 Mucosa - Nasopharyngeal Respiratory Panel (PCR) - Final 05/30/20 23:55 Nasal Secretion SARS-CoV-2 Antigen (Rapid) - Final Laboratory Results 05/30/20 15:45: Specimen Type ART, Sample Site R Radial, pH 7.41, Bicarbonate Actual 30.6 H, Total CO2 32, Base Excess 6 H, O2 Saturation 98, O2 % 40, ABG pCO2 48.6 H, ABG pO2 111 H, Stefano Test Positive 05/30/20 16:24: POC Glucose 201 H 05/30/20 20:40: POC Glucose 196 H 05/31/20 02:44: POC Glucose 198 H 05/31/20 05:22: WBC 4.7, RBC 3.52 L, Hgb 8.3 L, Hct 29.4 L, MCV 83.5, MCH 23.6 L, MCHC 28.2 L, RDW Std Deviation 51.8 H, RDW Coeff of Cinda 17.0 H, Plt Count 172, MPV 10.5, Immature Gran % (Auto) 0.200, Neut % (Auto) 70.7 H, Lymph % (Auto) 18.9 L, Dawes % (Auto) 7.9, Eos % (Auto) 2.1, Baso % (Auto) 0.2, Absolute Neuts (auto) 3.3, Absolute Lymphs (auto) 0.88, Nucleated RBC % 0 05/31/20 05:22: Sodium 137, Potassium 3.9, Chloride 100, Carbon Dioxide 33.0 H, Anion Gap 4 L, BUN 13, Creatinine 0.58 L, Estim Creat Clear Calc 71.99, Est GFR (MDRD) Af Amer 176, Est GFR (MDRD) Non-Af 146, BUN/Creatinine Ratio 22.2 H, Glucose 199 H, Calcium 8.6 05/31/20 06:24: POC Glucose 185 H 05/31/20 11:25: POC Glucose 246 H Current Medications Acetaminophen (Acetaminophen 325 Mg Tablet) 650 mg PO Q6H PRN PRN PRN Reason: Pain Score 1-10/Temp > 100.7 F Last Admin: 05/30/20 20:46 Dose: 650 mg Documented by: Albuterol Sulfate (Albuterol 2.5 Mg/3 Ml Vial.Neb.) 2.5 mg INHALATION Q2H PRN PRN PRN Reason: SOB/Wheezing Last Admin: 05/30/20 21:14 Dose: 2.5 mg Documented by: Aspirin (Aspirin 300 Mg Suppository) 300 mg RC DAILY [facility] Last Admin: 05/31/20 03:47 Dose: 300 mg Documented by: Atorvastatin Calcium (Atorvastatin Calcium 80 Mg Tablet) 80 mg PO QHS [facility] Last Admin: 05/30/20 20:47 Dose: 80 mg Documented by: Carvedilol (Carvedilol 25 Mg Tablet) 25 mg PO BID [facility] Last Admin: 05/31/20 10:02 Dose: 25 mg Documented by: Cholecalciferol (Cholecalciferol (Vit D3) 25 Mcg Tablet (1,000 Units)) 75 mcg PO DAILY [facility] Last Admin: 05/31/20 10:02 Dose: 75 mcg Documented by: Clopidogrel Bisulfate (Clopidogrel Bisulfate 75 Mg Tablet) 75 mg PO DAILY [facility] Last Admin: 05/31/20 10:02 Dose: 75 mg Documented by: Escitalopram Oxalate (Escitalopram Oxalate 10 Mg Tablet) 10 mg PO DAILY [facility] Last Admin: 05/31/20 10:02 Dose: 10 mg Documented by: Finasteride (Finasteride 5 Mg Tablet) 5 mg PO DAILY [facility] Last Admin: 05/31/20 10:03 Dose: 5 mg Documented by: Furosemide (Furosemide 20 Mg Tablet) 20 mg PO DAILY [facility] Last Admin: 05/31/20 10:02 Dose: 20 mg Documented by: Guaifenesin (Guaifenesin 10 Ml Udc (200mg/10ml)) 20 ml PO Q4H PRN PRN PRN Reason: COUGH Last Admin: 05/31/20 13:03 Dose: 20 ml Documented by: Insulin Human Lispro (Insulin Lispro 100 Unit/Ml Insuln.Pen) 0 unit SC ACHS [facility]; Protocol Last Admin: 05/31/20 11:27 Dose: 3 unit Documented by: Melatonin (Melatonin 3 Mg Tablet) 3 mg PO QHS PRN PRN PRN Reason: INSOMNIA Multivitamins/Minerals (Multivitamins,Ther W-Minerals Tablet) [facility] Last Admin: 05/31/20 10:02 Dose: 1 tablet Documented by: Nitroglycerin (Nitroglycerin (Inpatient Use) 0.4 Mg Tab.Subl) 0.4 mg SL Q5M PRN PRN Reason: CARDIAC/CHEST PAIN Ondansetron HCl (Ondansetron 4 Mg/2 Ml Vial) 4 mg IV Q8H PRN PRN PRN Reason: NAUSEA/VOMITING Pantoprazole Sodium (Pantoprazole Sodium 40 Mg Tablet) 40 mg PO BID [facility] Last Admin: 05/31/20 10:02 Dose: 40 mg Documented by: Potassium Chloride (Potassium Chloride Oral Tablet 20 Meq) [facility] Last Admin: 05/31/20 10:02 Dose: 20 meq Documented by: Ranolazine (Ranolazine 500 Mg Tablet) 500 mg PO BID [facility] Last Admin: 05/31/20 10:02 Dose: 500 mg Documented by: Sodium Chloride (0.9% Saline Lock 10 Ml Syringe) 10 - 40 ml IV UD PRN PRN Reason: SALINE FLUSH Tamsulosin HCl (Tamsulosin Hcl 0.4 Mg Capsule) 0.4 mg PO QHS [facility] Last Admin: 05/30/20 20:47 Dose: 0.4 mg Documented by: STROKE Vital Signs/Narrative: Vital Signs Pulse Ox 05/31/20 12:42 96 05/31/20 11:46 95 Medical Necessity - Tobacco Use Smoking Status: Former smoker Assessment/Plan All Active Problems (Last Reviewed 05/30/20 @ 01:40 by Xuan Castillo, FURNACE ERECTOR-C) Dyspnea (Acute) Elevated d-dimer (Acute) Syncope (Acute) Seizure (Resolved) 1. dyspnea reviewed CT showed resolution of Right pleural effusion, persistence of left pleural effusion respiratory panel, COVID-19, strep and legionella antigen negative. No need for abx. No additional therapy at this time. 2. syncope I doubt the patient's claims. He has no warning. It occurs while lying or standing. He wakes up not knowing where he is. Orthostatic vitals negative EEG negative for any seizure-like activity though did show generalized background slowing., Known mild irregularities of cerebral function which may reflect toxic, metabolic or neurodegenerative amongst other abnormalities. Did recommend evaluation for sleep disorder. I discussed with the patient's and she had a log of his neurology visits. She did not have the official reports but she was told by a neurologist in April 2019 before the pandemic, that he did not have seizures and discontinuing his antiepileptics. I asked if she was told the patient was having pseudoseizures, she could not tell me 1 way or another but she did not recognize at term. I talked her before the EEG results are back but it may be that he is having pseudoseizures and that he has been through an extensive work-up extending at least to last year in regards to these events. I did recommend psychiatric evaluation as this could be a manifestation of underlying psychiatric disorder. I told her that I recommended this because he has been through an extensive long evaluation for these events and a psychiatric evaluation would be helpful to evaluate for any other underlying psychiatric disorder that may be contributing to this. She was concerned about the patient's Victoza causing this and seems to think that that may correlate with his symptoms. That has been held during this admission anyway still having these events. Given that patient is not having any new neurologic deficits no additional images are going to be performed at this time. We will request records from [place] where he had seen who told the patient's that he was not having seizures. 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 3. CAD continue clopidogrel, ASA, carvedilol 4. disposition: plan for [facility] upon discharge. Given the patient's events plan is to watch him overnight to see how he does prior to discharge. Hopefully can be discharged on the . Greater than 35 minutes of which greater than 50% of time was discussing with the patient's about his symptoms, his work-up thus far here in the hospital and my additional recommendations. Also reviewing her recollection as well as part of her documented log. Inpatient E&M: [id number] [facility] L[facility]
[2020-05-31 17:10] LABS: Bedside Glucose 266 mg/dL (70-110)
[2020-05-31] MEDS: Atorvastatin Calcium 80 MG Tablet PO (21:04)
[2020-05-31] MEDS: Tamsulosin HCl 0.4 MG Capsule PO (21:04)
[2020-05-31 21:21] LABS: Bedside Glucose 233 mg/dL (70-110)
[2020-06-01 01:00] VITALS: BP 116/41; PULSE 68; RESP 18; TEMP 36.7; O2SAT 100
[2020-06-01 02:59] VITALS: PULSE 63
[2020-06-01 05:00] VITALS: BP 131/57; PULSE 63; RESP 16; TEMP 36.3; O2SAT 94
[2020-06-01 05:12] LABS: Absolute Lymphocyte Count 0.89 X10^3/uL (0.83-4.51); Absolute Neutrophil Count 3.1 X10^3/uL (2.0-7.7); Basophil# 0.01 X10^3/uL; Basophil% 0.2 % (0-1); Eosinophil# 0.13 X10^3/uL; Eosinophils% 2.9 % (0-5); Hematocrit 29.4 % (40-54); Hemoglobin 8.3 g/dL (13.0-16.5); Lymphocyte # 0.89 X10^3/ul (0.83-4.51); Lymphocyte % 19.9 % (19-41); Mean Corp Hgb Conc 28.2 g/dL (32-36); Mean Corpuscular Hgb 23.9 pg (27.0-32.0); Mean Corpuscular Volume 84.5 fL (80-94); Mean Platelet Vol. 10.6 fl (6.2-12.0); Monocyte# 0.38 X10^3/uL; Monocyte% 8.5 % (0-10); NRBC Flagged by Analyzer 0 % (0-5); Neutrophil # 3.06 X10^3/uL (2.7-7.7); Neutrophil % 68.3 % (47-70); Platelet Count 177 K/mm3 (150-450); RBC Distribution Width CV 16.8 % (11.6-14.6); RBC Distribution Width SD 51.6 fl (35.1-43.9); Red Blood Count 3.48 M/mm3 (4.6-6.2); White Blood Count 4.5 K/mm3 (4.4-11.0)
[2020-06-01 05:29] LABS: ALB/GLOB Ratio 0.8 RATIO (0.9-2.4); AST(SGOT) 10 U/L (15-37); Alanine Aminotransfer ALT/SGPT 13 U/L (16-61); Albumin, Serum 2.9 g/dL (3.2-5.0); Alkaline Phosphatase 123 U/L (45-117); Anion Gap 2 (5-15); BUN 18 mg/dL (7-18); BUN/Creat Ratio 24.7 RATIO (10-20); Calcium,Total 8.2 mg/dL (8.5-10.1); Chloride 100 mmol/L (98-107); Creatinine, Serum 0.73 mg/dL (0.70-1.30); EST Glomerular Filtration Rate 113 mL/min (>60); Est Glom Filt Rate - Afr Amer 137 mL/min (>60); Estimated Creatinine Clearance 71.99 ml/min; Globulin 3.8 g/dL (2.2-4.2); Glucose 239 mg/dL (74-106); Protein, Total 6.7 g/dL (6.4-8.2); Sodium Level 136 mmol/L (136-145)
[2020-06-01] MEDS: Insulin Lispro 100 UNIT/ML INSULN.PEN SC ×2 (06:29→11:07)
[2020-06-01 06:36] LABS: Bedside Glucose 230 mg/dL (70-110)
[2020-06-01 07:00] VITALS: PULSE 66
[2020-06-01 07:36] VITALS: O2SAT 96
[2020-06-01 09:00] VITALS: BP 141/67; PULSE 66; RESP 18; TEMP 36.3; O2SAT 98
[2020-06-01] MEDS: Multivitamins,Ther W-Minerals Tablet 1 TABLET PO (09:43)
[2020-06-01] MEDS: Escitalopram Oxalate 10 MG Tablet PO (09:43)
[2020-06-01] MEDS: Furosemide 20 MG Tablet PO (09:43)
[2020-06-01] MEDS: Cholecalciferol (VIT D3) 25 MCG TABLET (1,000 UNITS) 75 MCG PO (09:43)
[2020-06-01] MEDS: Ranolazine 500 MG Tablet PO (09:43)
[2020-06-01] MEDS: Potassium Chloride Oral Tablet 20 MEQ PO (09:43)
[2020-06-01] MEDS: Pantoprazole Sodium 40 MG Tablet PO (09:43)
[2020-06-01] MEDS: Carvedilol 25 MG Tablet PO (09:43)
[2020-06-01] MEDS: Clopidogrel Bisulfate 75 MG Tablet PO (09:44)
[2020-06-01] MEDS: Finasteride 5 MG Tablet PO (09:44)
--- NOTE | 2020-06-01 11:14 | PCM.DC ---
- Discharge Diagnoses Current Active Problems: Current Active and Chronic Problems (Last Reviewed 05/30/20 @ 01:40 by KELLY Villar) Dyspnea (Acute) Elevated d-dimer (Acute) Syncope (Acute) CAD (coronary artery disease) (Chronic) History of permanent cardiac pacemaker placement (Chronic 09/10/11) 2001 Atherosclerotic heart disease [place] coronary artery w/angina pectoris (Chronic) Cardiac catheterization 02/24/2017?normal LV size should not, EF 55%, [place] multivessel CAD, patent SVG to diagonal 1, OM 2, and RCA, [place]ON to LAD previously reported as atretic/nonfunctional (not reevaluated at that time), advised medical therapy History of coronary artery stent placement (Chronic) Previously placed stent has an instent 85 % restenosis followed by subtotal occlusion per [facility] 02/2017 H/O coronary artery bypass surgery (Chronic) CABG x 4 MAOSN-LAD, SVG-D1, SVG-OM2, SVG-RCA Essential (primary) hypertension (Chronic) EKATERINA (obstructive sleep apnea) (Chronic) Hyperlipidemia (Chronic) Obesity (Chronic) DM type 2 (diabetes mellitus, type 2) (Chronic) You will use the following diet at home:: Calorie/Carbohydrate Controlled (specify 1200, 1400, etc) - 1800 Your food should be the consistency of: Regular Your liquids should be the consistency of: Regular/Thin Call your doctor if you observe: Fever of 101 or Higher, Inability to urinate Allergies/Adverse Reactions: Allergies ezetimibe Allergy (Verified 05/18/20 23:05) Unknown Fish Containing Products Allergy (Verified 05/18/20 23:05) Unknown glyburide Allergy (Verified 05/18/20 23:05) Unknown isosorbide Allergy (Verified 05/18/20 23:05) PT UNSURE OF REACTION lisinopril Allergy (Verified 05/18/20 23:05) Unknown metformin Allergy (Verified 05/18/20 23:05) Nausea metoprolol Allergy (Verified 05/18/20 23:05) Unknown simvastatin Allergy (Verified 05/18/20 23:05) Unknown Medications to take at Discharge Aspirin E.C. [Ecotrin] 81 mg PO DAILY@0800 06/11/18 Atorvastatin Calcium [Lipitor] 80 mg PO QHS 06/11/18 Cholecalciferol (VIT D3) [Vitamin D3] 3,000 units PO DAILY 06/11/18 Clopidogrel Bisulfate [Clopidogrel] 75 mg PO DAILY 06/11/18 Escitalopram Oxalate [Lexapro] 10 mg PO DAILY 06/11/18 Finasteride [Proscar] 5 mg PO DAILY 06/11/18 Furosemide [Lasix] 20 mg PO DAILY 06/11/18 Insulin Regular, Human [Humulin R U-500 Kwikpen] 105 unit SQ BREAKFAST 06/11/18 Insulin Regular, Human [Humulin R U-500 Kwikpen] 105 unit SQ QHS 06/11/18 Multivitamins,Ther W-Minerals [Multivitamin With Minerals ([facility])] 1 tablet PO DAILY 06/11/18 Acetaminophen [Tylenol Tablet] 650 mg PO Q6H PRN PRN tablet 06/21/18 Nitroglycerin (INPATIENT USE) [Nitrostat] 0.4 mg SUBLINGUAL Q5M PRN #30 tablet 07/22/18 Albuterol Inhaler [Ventolin Hfa] 1 - 2 puff INHALATION 4X/DAY PRN PRN 04/08/20 Potassium Chloride [Klor-Con M20] 20 meq PO DAILY 04/08/20 Ranolazine [Ranexa] 500 mg PO BID #0 04/10/20 Tamsulosin HCl [Flomax] 0.4 mg PO QHS #30 cap 04/10/20 Carvedilol [Coreg (Beta Sophy)] 25 mg PO BID #60 tab 05/12/20 Pantoprazole Sodium [Protonix] 40 mg PO BID 05/18/20 Primary Care Physician: [facility] [Primary Care Provider] - Within 2 Weeks Test Results: Test results from this visit will be discussed in further detail at your follow-up appointment, if applicable. Please Follow Up With: Psychiatry When: 1-2 months Proposed Discharge Date: 06/01/20
[2020-06-01 11:16] LABS: Bedside Glucose 291 mg/dL (70-110)
--- NOTE | 2020-06-01 11:16 | PCM.DC.SUM ---
Discharge Date and Diagnosis - Problem List Patient Problems: Active and Suspected Problems (Last Reviewed 05/30/20 @ 01:40 by Xuan Castillo NP-[place]) Dyspnea (Acute) Elevated d-dimer (Acute) Syncope (Acute) Date of Admission: 05/30/20 Date of Discharge: 06/01/20 - Primary Discharge Diagnosis Acute Problems: Active Problems (Last Reviewed 05/30/20 @ 01:40 by Xuan Castillo NP-C) Dyspnea (Acute) Elevated d-dimer (Acute) Syncope (Acute) 1. dyspnea reviewed CT showed resolution of Right pleural effusion, persistence of left pleural effusion respiratory panel, COVID-19, strep and legionella antigen negative. No need for abx. No additional therapy at this time. 2. syncope I doubt the patient's claims. He has no warning. It occurs while lying or standing. He wakes up not knowing where he is. Orthostatic vitals negative EEG negative for any seizure-like activity though did show generalized background slowing., Known mild irregularities of cerebral function which may reflect toxic, metabolic or neurodegenerative amongst other abnormalities. Did recommend evaluation for sleep disorder. I discussed with the patient's and she had a log of his neurology visits. She did not have the official reports but she was told by a neurologist in April 2019 before the pandemic, that he did not have seizures and discontinuing his antiepileptics. I asked if she was told the patient was having pseudoseizures, she could not tell me 1 way or another but she did not recognize at term. I talked her before the EEG results are back but it may be that he is having pseudoseizures and that he has been through an extensive work-up extending at least to last year in regards to these events. I did recommend psychiatric evaluation as this could be a manifestation of underlying psychiatric disorder. I told her that I recommended this because he has been through an extensive long evaluation for these events and a psychiatric evaluation would be helpful to evaluate for any other underlying psychiatric disorder that may be contributing to this. She was concerned about the patient's Victoza causing this and seems to think that that may correlate with his symptoms. That has been held during this admission anyway still having these events. Given that patient is not having any new neurologic deficits no additional images are going to be performed at this time. We will request records from [facility] where he had seen who told the patient's that he was not having seizures. 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) Cardiac catheterization 02/24/2017?normal LV size should not, EF 55%, kasaan multivessel CAD, patent SVG to diagonal 1, OM 2, and RCA, MASON to LAD previously reported as atretic/nonfunctional (not reevaluated at that time), advised medical therapy History of coronary artery stent placement (Chronic) Previously placed stent has an instent 85 % restenosis followed by subtotal occlusion per [facility] 02/2017 H/O coronary artery bypass surgery (Chronic) CABG x 4 MASON-LAD, SVG-D1, SVG-OM2, SVG-RCA Essential (primary) hypertension (Chronic) EKATERINA (obstructive sleep apnea) (Chronic) Hyperlipidemia (Chronic) Obesity (Chronic) Chronic respiratory failure (Chronic) baseline 3L continuously DM type 2 (diabetes mellitus, type 2) (Chronic) Hospital Course and Treatment Imaging Results: Clinical Impression(s) from Imaging Studies Chest X-Ray 05/29/20 23:34 IMPRESSION: Persistent obscuration of the left lung base and hemidiaphragm likely due to persistent left pleural effusion and adjacent atelectasis. No significant radiographic changes. Electronically Signed: Eric Solis MD at 0:41 EDT Tel , Service support , Chest CTA 05/30/20 00:17 IMPRESSION: No demonstrated pulmonary embolism or arterial dissection. Stable small left pleural effusion and adjacent lung atelectasis. Interval resolution of right pleural effusion. Electronically Signed: Eric Solis MD at 1:54 EDT Tel , Service support , Head/Neck CTA 05/31/20 02:48 IMPRESSION: Stable mild to moderate narrowing of the proximal left vertebral artery otherwise negative CTA head and neck with contrast for stenosis or aneurysm. No interval change. Electronically Signed: Eric Solis MD at 3:32 EDT Tel , Service support , ADDENDUM: 05/31/20 0340 IMPRESSION: Stable mild to moderate narrowing of the proximal left vertebral artery otherwise negative CTA head and neck with contrast for stenosis or aneurysm. No interval change. N.B. : The above information has been verbally conveyed by Eric Solis MD to Dr. Carlos Alberto Fermin MD, on 05/31/2020 03:33:05 (ET). Electronically Signed: Eric Solis MD at 3:32 EDT Tel , Service support , Brain CT 05/31/20 02:49 IMPRESSION: Chronic involutional changes of the brain. N.B. : The above information has been verbally conveyed by Eric Solis MD to Lolly Allen RN, on 05/31/2020 03:17:34 (ET). Electronically Signed: Eric Solis MD at 3:19 EDT Tel , Service support , ADDENDUM: 05/31/20 0326 IMPRESSION: Chronic involutional changes of the brain. N.B. : The above information has been verbally conveyed by Eric Solis MD to Lolly Allen RN, on 05/31/2020 03:17:34 (ET). Electronically Signed: Eric Solis MD at 3:19 EDT Tel , Service support , Operations: None Summary of Care Provided: The patient is a 69 year old M Zen with shortness of breath. Patient had a left pleural effusion which was actually improvement from previous imaging. Patient complains of syncope where a passes out 7 times while sitting or standing but no injury occurs. Patient had an event while he was here and resolved spontaneously. Patient underwent EEG seen by neurology. Patient had no new focal deficits. Patient does have chronic left-sided weakness related with his prior stroke. Had extensive conversation with patient's that no etiology has been done a fight and recommended psychiatry evaluation. She is requesting discontinue Victoza which she has not been receiving here and still had an episode while he was here. [] Patient Problems: Active and Suspected Problems (Last Reviewed 05/30/20 @ 01:40 by Xuan Castillo, [employer]-C) Dyspnea (Acute) Elevated d-dimer (Acute) Syncope (Acute) - Physical Exam Vitals/I&O's: Vital Signs Temp Pulse Resp BP Pulse Ox 36.3 C L 66 18 141/67 H 98 06/01/20 09:00 06/01/20 09:00 06/01/20 09:00 06/01/20 09:00 06/01/20 09:00 Oxygen Flow Rate (L/min) 3 Oxygen Delivery Method Nasal Cannula Weight: 107.4 kg Body Mass Index (BMI) 34.0 Finger Stick Blood Glucose 198 Orthostatic Vital Signs Start: 05/31/20 05:45 Freq: 0600 Status: Active Protocol: Activity Type Activity Date Activity User E-Sign Co-Sign Detail Recorded Client Recorded Date Recorded By Document 05/31/20 05:45 AF [id number] 05/31/20 05:48 AF 05/31/20 05:45 Orthostatic Vitals Lying -Blood Pressure (90/60-120/80) 144/72 H -Extremity Use Right Arm -Pulse Rate (60-100) 60 Sitting -Blood Pressure (90/60-120/80) 143/64 H -Extremity Use Right Arm -Pulse Rate (60-100) 60 Intake and Output for Last 24 Hours 05/30/20 05/31/20 06/01/20 23:59 23:59 23:59 Intake Total 910 / 910 360 / 580 220 / 220 Output Total 950 / 950 975 / 1100 330 / 330 Balance -40 / -40 -615 / -520 -110 / -110 General: Alert, No apparent distress Neck: No Nodes, Thyroid Normal Size and Texture Lungs: Clear to auscultation, Normal air movement, No rhonchi, No wheeze Cardiovascular: Regular rate, Regular Rhythm, Normal S1, Normal S2 Abdomen: Bowel Sounds Present, Soft, Non Tender, Non-Distended Extremities: No edema, No Calf Tenderness Microbiology Past 72 Hours 05/30/20 03:35 Mucosa - Nasopharyngeal Respiratory Panel (PCR) - Final 05/30/20 23:55 Nasal Secretion SARS-CoV-2 Antigen (Rapid) - Final Laboratory Results 05/31/20 11:25: POC Glucose 246 H 05/31/20 16:53: POC Glucose 266 H 05/31/20 21:01: POC Glucose 233 H 06/01/20 05:04: WBC 4.5, RBC 3.48 L, Hgb 8.3 L, Hct 29.4 L, MCV 84.5, MCH 23.9 L, MCHC 28.2 L, RDW Std Deviation 51.6 H, RDW Coeff of Cinda 16.8 H, Plt Count 177, MPV 10.6, Immature Gran % (Auto) 0.200, Neut % (Auto) 68.3, Lymph % (Auto) 19.9, [place] % (Auto) 8.5, Eos % (Auto) 2.9, Baso % (Auto) 0.2, Absolute Neuts (auto) 3.1, Absolute Lymphs (auto) 0.89, Nucleated RBC % 0 06/01/20 05:04: Sodium 136, Potassium 4.0, Chloride 100, Carbon Dioxide 34.0 H, Anion Gap 2 L, BUN 18, Creatinine 0.73, Estim Creat Clear Calc 71.99, Est GFR (MDRD) Af Amer 137, Est GFR (MDRD) Non-Af 113, BUN/Creatinine Ratio 24.7 H, Glucose 239 H, Calcium 8.2 L, Total Bilirubin 0.40, AST 10 L, ALT 13 L, Alkaline Phosphatase 123 H, Total Protein 6.7, Albumin 2.9 L, Globulin 3.8, Albumin/Globulin Ratio 0.8 L 06/01/20 05:04: Ammonia 32.0 06/01/20 06:28: POC Glucose 230 H 06/01/20 11:05: POC Glucose Pending Current Medications Acetaminophen (Acetaminophen 325 Mg Tablet) 650 mg PO Q6H PRN PRN PRN Reason: Pain Score 1-10/Temp > 100.7 F Last Admin: 05/30/20 20:46 Dose: 650 mg Documented by: Albuterol Sulfate (Albuterol 2.5 Mg/3 Ml Vial.Neb.) 2.5 mg INHALATION Q2H PRN PRN PRN Reason: SOB/Wheezing Last Admin: 05/30/20 21:14 Dose: 2.5 mg Documented by: Aspirin (Aspirin 300 Mg Suppository) 300 mg RC DAILY [facility] Last Admin: 06/01/20 10:51 Dose: Not Given Documented by: Atorvastatin Calcium (Atorvastatin Calcium 80 Mg Tablet) 80 mg PO QHS [facility] Last Admin: 05/31/20 21:04 Dose: 80 mg Documented by: Carvedilol (Carvedilol 25 Mg Tablet) 25 mg PO BID [facility] Last Admin: 06/01/20 09:43 Dose: 25 mg Documented by: Cholecalciferol (Cholecalciferol (Vit D3) 25 Mcg Tablet (1,000 Units)) 75 mcg PO DAILY [facility] Last Admin: 06/01/20 09:43 Dose: 75 mcg Documented by: Clopidogrel Bisulfate (Clopidogrel Bisulfate 75 Mg Tablet) 75 mg PO DAILY [facility] Last Admin: 06/01/20 09:44 Dose: 75 mg Documented by: Escitalopram Oxalate (Escitalopram Oxalate 10 Mg Tablet) 10 mg PO DAILY [facility] Last Admin: 06/01/20 09:43 Dose: 10 mg Documented by: Finasteride (Finasteride 5 Mg Tablet) 5 mg PO DAILY [facility] Last Admin: 06/01/20 09:44 Dose: 5 mg Documented by: Furosemide (Furosemide 20 Mg Tablet) 20 mg PO DAILY [facility] Last Admin: 06/01/20 09:43 Dose: 20 mg Documented by: Guaifenesin (Guaifenesin 10 Ml Udc (200mg/10ml)) 20 ml PO Q4H PRN PRN PRN Reason: COUGH Last Admin: 05/31/20 21:11 Dose: 20 ml Documented by: Insulin Human Lispro (Insulin Lispro 100 Unit/Ml Insuln.Pen) 0 unit SC ACHS [facility]; Protocol Last Admin: 06/01/20 11:07 Dose: 4 unit Documented by: Melatonin (Melatonin 3 Mg Tablet) 3 mg PO QHS PRN PRN PRN Reason: INSOMNIA Multivitamins/Minerals (Multivitamins,Ther W-Minerals Tablet) 1 tablet PO [facility] Last Admin: 06/01/20 09:43 Dose: 1 tablet Documented by: Nitroglycerin (Nitroglycerin (Inpatient Use) 0.4 Mg Tab.Subl) 0.4 mg SL Q5M PRN PRN Reason: CARDIAC/CHEST PAIN Ondansetron HCl (Ondansetron 4 Mg/2 Ml Vial) 4 mg IV Q8H PRN PRN PRN Reason: NAUSEA/VOMITING Pantoprazole Sodium (Pantoprazole Sodium 40 Mg Tablet) 40 mg PO BID [facility] Last Admin: 06/01/20 09:43 Dose: 40 mg Documented by: Potassium Chloride (Potassium Chloride Oral Tablet 20 Meq) 20 meq PO [facility] Last Admin: 06/01/20 09:43 Dose: 20 meq Documented by: Ranolazine (Ranolazine 500 Mg Tablet) 500 mg PO BID [facility] Last Admin: 06/01/20 09:43 Dose: 500 mg Documented by: Sodium Chloride (0.9% Saline Lock 10 Ml Syringe) 10 - 40 ml IV UD PRN PRN Reason: SALINE FLUSH Tamsulosin HCl (Tamsulosin Hcl 0.4 Mg Capsule) 0.4 mg PO QHS [facility] Last Admin: 05/31/20 21:04 Dose: 0.4 mg Documented by: Discharge Diet: 1800 Calorie Control Diet Call your doctor if you observe: Fever of 101 or Higher, Inability to urinate Home Medications: Medications to take at Discharge Aspirin E.C. [Ecotrin] 81 mg PO DAILY@0800 06/11/18 Atorvastatin Calcium [Lipitor] 80 mg PO QHS 06/11/18 Cholecalciferol (VIT D3) [Vitamin D3] 3,000 units PO DAILY 06/11/18 Clopidogrel Bisulfate [Clopidogrel] 75 mg PO DAILY 06/11/18 Escitalopram Oxalate [Lexapro] 10 mg PO DAILY 06/11/18 Finasteride [Proscar] 5 mg PO DAILY 06/11/18 Furosemide [Lasix] 20 mg PO DAILY 06/11/18 Insulin Regular, Human [Humulin R U-500 Kwikpen] 105 unit SQ BREAKFAST 06/11/18 Insulin Regular, Human [Humulin R U-500 Kwikpen] 105 unit SQ QHS 06/11/18 Multivitamins,Ther W-Minerals [Multivitamin With Minerals (BKC)] 1 tablet PO DAILY 06/11/18 Acetaminophen [Tylenol Tablet] 650 mg PO Q6H PRN PRN tablet 06/21/18 Nitroglycerin (INPATIENT USE) [Nitrostat] 0.4 mg SUBLINGUAL Q5M PRN #30 tablet 07/22/18 Albuterol Inhaler [Ventolin Hfa] 1 - 2 puff INHALATION 4X/DAY PRN PRN 04/08/20 Potassium Chloride [Klor-Con M20] 20 meq PO DAILY 04/08/20 Ranolazine [Ranexa] 500 mg PO BID #0 04/10/20 Tamsulosin HCl [Flomax] 0.4 mg PO QHS #30 cap 04/10/20 Carvedilol [Coreg (Beta Sophy)] 25 mg PO BID #60 tab 05/12/20 Pantoprazole Sodium [Protonix] 40 mg PO BID 05/18/20 [facility] - Within 2 Weeks Please Follow Up With: Psychiatry When: 1-2 months Disposition: Home Minutes spent on discharge:: 32 Patient Condition:: Fair Medical Necessity - Tobacco Use Smoking Status: Former smoker Meaningful Use Info Meaningful Use Diagnoses (Choose all that apply): None applicable Inpatient E&M: 95692 Disch Hosp
--- NOTE | 2020-06-01 12:08 | CASEMGMT ---
D/C summ/instructions faxed to [facility] and call to Sharla at [facility] to notify of discharge, voices understanding. Sharla states they will get palliative physician out to see pt. This RN CM to room and pt encouraged to let [facility] nurse come out to prevent readmissions and pt voices understanding. Pt voices no further questions/concerns/needs. SStaten RN CM
--- NOTE | 2020-06-04 15:13 | CASEMGMT ---
KRISTI GERONIMO Discharge F/U Phone Call LACE: 14 Strata: 4 Discharge date: 06/01/20 Call date: 06/04/20 Call time: [id number] Admission dx: Dyspnea answered phone and states pt has been weak since discharge but has been ok. states no questions regarding discharge instructions/medications. states that [facility] tried to do start of care yesterday but they want their 'weekends for themselves' and they have 'told them over and over they don't want them to come out on the weekends unless it's an emergency.' Advised that [facility] is trying to get out to re-start care and try and keep pt out of the hospital, voices understanding. voice no suggestions for [facility] and states no further questions/concerns/needs. SStaten KRISTI GERONIMO
== END 2020-06-01 13:00 | disposition home or self-care (01) | DRG 187 ==
LOC: ED 05-30 01:22 → PCU 05-30 02:04
PROVIDERS: Nurse Practitioner Family; Admitting Provider Hospitalist; Emergency Provider Emergency Medicine
DX: J90 Pleural effusion, not elsewhere classified (principal); J96.10 Chronic respiratory failure, unspecified whether with hypoxia or hypercapnia; I69.354 Hemiplegia and hemiparesis following cerebral infarction affecting left non-dominant side; J98.11 Atelectasis; R55 Syncope and collapse; R79.89 Other specified abnormal findings of blood chemistry; Z95.0 Presence of cardiac pacemaker; Z87.891 Personal history of nicotine dependence; I44.0 Atrioventricular block, first degree; I10 Essential (primary) hypertension; E78.5 Hyperlipidemia, unspecified; G47.33 Obstructive sleep apnea (adult) (pediatric); E66.9 Obesity, unspecified; I25.119 Atherosclerotic heart disease of native coronary artery with unspecified angina pectoris; E11.65 Type 2 diabetes mellitus with hyperglycemia; R56.9 Unspecified convulsions; Z95.1 Presence of aortocoronary bypass graft; Z95.5 Presence of coronary angioplasty implant and graft; Z68.34 Body mass index [BMI] 34.0-34.9, adult; Z79.02 Long term (current) use of antithrombotics/antiplatelets; Z79.4 Long term (current) use of insulin; Z79.82 Long term (current) use of aspirin; Z82.49 Family history of ischemic heart disease and other diseases of the circulatory system; Z83.3 Family history of diabetes mellitus
CPT/HCPCS: 36415; 36600; 70450; 70496; 70498; 71045; 71275; 80048; 80053; 81001; 82140; 82803; 82962; 83605; 83880; 84484; 85025; 85379; 87426; 87633; 92610; 93005; 94640; 95819; 97110; 97163; 97166; 97530; 97535; 99251; 99285; Q9967; A4216; G0463

== ENCOUNTER 2020-06-22 12:43 | Inpatient (IN) | payer OTHER, MEDICARE, SELFPAY ==
[2020-05-30 02:32] VITALS: BMI 34.0
[2020-06-22] VITALS (16 sets, daily range): BP systolic 142–162; BP diastolic 44–80; PULSE 60–84; RESP 15–23; TEMP 36.2–37.1; O2SAT 92–100; BMI 34.4; BMI 34.3
--- NOTE | 2020-06-22 13:41 | EKG12_ITS ---
Test Reason : SOB Blood Pressure : / mmHG Vent. Rate : 071 BPM Atrial Rate : 071 BPM P-R Int : 336 ms QRS Dur : 120 ms QT Int : 414 ms P-R-T Axes : 080 -20 109 degrees QTc Int : 449 ms Sinus rhythm with 1st degree A-V block Non-specific intra-ventricular conduction delay Nonspecific ST and T wave abnormality Abnormal ECG Confirmed by PADILLA GUALLPA, CALI ([id number]), legal editor NADINE FERRER ([id number]) on 06/25/2020 12:51:24 PM Referred By: JAVIER Confirmed By:CALI CAUSEY MD
--- NOTE | 2020-06-22 13:43 | EDS_ITS ---
HPI History of Present Illness Chief Complaint: Shortness of Breath Informant: patient Narrative Narrative: 70-year-old male with multiple medical problems presenting with increased oxygen requirement and cough. states that he was in a bad tractor accident at the end of last year and got out of half-way in time for Alejandra. She states that around 17 May he was diagnosed with pneumonia and then later had a stroke. He tells me that yesterday he had to increase his oxygen requirements from 2 L to 4 L. He notes his cough has worsened and he can feel it rattling but is not making any sputum. He notes chronic leg swelling and that is not new. He denies any fevers. He notes a underlying history of COPD and is in the process of establishing with a product sales representative at the [facility] Medical History (Updated 06/22/20 @ 16:[address] 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 Chronic respiratory failure Essential (primary) hypertension History of fractured rib Hyperlipidemia Obesity EKATERINA (obstructive sleep apnea) Home Medications Humulin R U-500 (Conc) Kwikpen 120 unit SQ BREAKFAST 06/11/18 [History Last Taken 05/29/20] Humulin R U-500 (Conc) Kwikpen 120 unit SQ DINNER 06/11/18 [History Last Taken 05/28/20] Therems-M 1 tab PO DAILY 06/11/18 [History Last Taken 05/28/20] aspirin 81 mg PO DAILY@0800 06/11/18 [History Last Taken 05/29/20] atorvastatin 80 mg PO QHS 06/11/18 [History Last Taken 05/28/20] cholecalciferol (vitamin D3) [Vitamin D3] 3,000 units PO DAILY 06/11/18 [History Last Taken 05/29/20] clopidogrel 75 mg PO DAILY 06/11/18 [History Last Taken 05/29/20] escitalopram oxalate 10 mg PO DAILY 06/11/18 [History Last Taken 05/29/20] finasteride 5 mg PO DAILY 06/11/18 [History Last Taken 05/29/20] furosemide 20 mg PO DAILY 06/11/18 [History Last Taken 05/29/20] acetaminophen [Tylenol] 650 mg PO Q6H PRN PRN tablet 06/21/18 [Rx Last Taken 04/08/20 09:00] nitroglycerin 0.4 mg SUBLINGUAL Q5M PRN #30 tablet 07/22/18 [Rx Last Taken 01/17/20] Potassium Chloride [Klor-Con M20] 20 meq PO DAILY 04/08/20 [History Last Taken 05/29/20] albuterol sulfate 1 - 2 puff INHALATION 4X/DAY PRN PRN 04/08/20 [History Last Taken Unknown] ranolazine 500 mg PO BID #0 04/10/20 [Rx Last Taken 05/29/20] tamsulosin 0.4 mg PO QHS #30 cap 04/10/20 [Rx Last Taken 05/29/20] pantoprazole 40 mg PO BID 05/18/20 [History Last Taken 05/29/20] carvedilol 18.75 mg PO BID 06/22/20 [History Last Taken Unknown] levetiracetam 1,000 mg PO BID 06/22/20 [History Last Taken Unknown] tiotropium bromide 2 puff INHALATION DAILY 06/22/20 [History Last Taken Unknown] Allergy/AdvReac Type Severity Reaction Status Date / Time ezetimibe Allergy Unknown Verified 06/22/20 12:45 Fish Containing Products Allergy Unknown Verified 06/22/20 12:45 glyburide Allergy Unknown Verified 06/22/20 12:45 isosorbide Allergy PT UNSURE Verified 06/22/20 12:45 OF REACTION lisinopril Allergy Unknown Verified 06/22/20 12:45 metformin Allergy Nausea Verified 06/22/20 12:45 metoprolol Allergy Unknown Verified 06/22/20 12:45 simvastatin Allergy Unknown Verified 06/22/20 12:45 Surgical History (Updated 06/22/20 @ 14:13 by Gretchen Romero) H/O coronary artery bypass surgery History of cholecystectomy History of coronary artery stent placement History of knee replacement procedure of left knee History of permanent cardiac pacemaker placement (09/10/11) Social History (Updated 06/22/20 @ 13:[address] Gerard Weeks, ) household members: spouse Smoking Status: Former smoker substance use type: does not use ROS ROS ED Constitutional Constitutional ED: Denies chills or weight loss Eyes Eyes: Denies change in vision or diplopia ENT ENT ED: Denies ear pain, rhinorrhea or sore throat Cardiovascular Cardiovascular: Denies chest pain, orthopnea, palpitations or racing heartbeat Respiratory/Chest Respiratory/Chest: Reports cough, dyspnea and dyspnea on exertion; Denies orthopnea Gastrointestinal Gastrointestinal: Denies abdominal pain, diarrhea, nausea or vomiting Genitourinary Genitourinary ED: Denies dysuria, hematuria or urinary frequency Musculoskeletal Musculoskeletal: Denies arthralgias or myalgias Integumentary Denies abscess or rash Neurologic Neurologic: Denies headache(s) or weakness Psychiatric Psychiatric: Denies anxiety, depression, suicidal ideation or suicidal thoughts Endocrine Endocrinology: Denies polydipsia, polyphagia or polyuria Allergic/Immunologic Allergic/Immunologic ED: Denies mouth swelling, tongue swelling or urticaria EXAM Physical Exam Const Vital Signs: 06/22/20 12:45 06/22/20 13:41 06/22/20 14:00 Temperature 97.2 F L Temperature Source Temporal Pulse Rate 60 71 70 Respiratory Rate 22 H 17 Blood Pressure 160/72 H 142/44 H Blood Pressure Mean 101 76 Pulse Ox 100 98 Oxygen Delivery Method Nasal Cannula Nasal Cannula Nasal Cannula Oxygen Flow Rate (L/min) 4 3 06/22/20 14:56 06/22/20 15:59 06/22/20 16:00 Temperature 98.1 F Temperature Source Oral Pulse Rate 67 84 60 Respiratory Rate 22 H 19 H 15 Blood Pressure 142/44 H 160/73 H Blood Pressure Mean 76 102 Pulse Ox 94 98 97 Oxygen Delivery Method Nasal Cannula Nasal Cannula Nasal Cannula Oxygen Flow Rate (L/min) 3 2 3 Positive well nourished and well developed General Appearance ED: well developed HEENT Reports normocephalic, head/scalp atraumatic and moist mucous membranes Eyes PERRL and EOMs intact bilaterally Neck no lymphadenopathy, supple and no JVD Resp normal respiratory effort Auscultation: rhonchi and wheezes Cardio regular rate, regular rhythm and no murmurs GI normal to inspection, nondistended, normoactive bowel sounds and non-tender Palpation: soft Back/Spine no CVA tenderness and normal ROM Extremity normal to inspection Extremity Narrative: Bilateral lower extremity edema General Extremety ED: Yes edema General Extremity: edema Neuro oriented x3 and CN's II-XII intact bilaterally Sensorium / Orientation: alert Motor Exam: strength 5/5 throughout Psych mental status grossly normal Mood & Affect: Negative for depressed or tearful Skin no rashes or lesions noted and no wounds MDM MDM MDM Narrative Medical decision making narrative: My interpretation of the chest x-ray is no acute process patient had some wheezing but was not in any respiratory distress when he came in. This wheezing resolved after DuoNeb I also gave him Solu-Medrol. Chest x- ray I do not see any definitive infiltrate and his white count is normal at 4.5. His hemoglobin level however is 7.8 and I pull up his last several hemoglobins and there is is a trend down. I wonder if this fatigue and increased shortness of breath is related to the anemia. His stool is brown formed and Hemoccult negative. His MCV is 79.7. Plan will be for admission Lab Data Labs: Laboratory Results - last 24 hr 06/22/20 06/22/20 06/22/20 14:05 14:05 14:05 WBC 4.5 RBC 3.45 L Hgb 7.8 L Hct 27.5 L MCV 79.7 L MCH 22.6 L MCHC 28.4 L RDW Std Deviation 51.0 H RDW Coeff of Cinda 17.7 H Plt Count 178 MPV 10.1 Immature Gran % (Auto) 0.200 Neut % (Auto) 70.6 H Lymph % (Auto) 17.8 L [place] % (Auto) 9.6 Eos % (Auto) 1.6 Baso % (Auto) 0.2 Absolute Neuts (auto) 3.2 Absolute Lymphs (auto) 0.80 L Nucleated RBC % 0 PT 14.9 INR 1.2 APTT 37.6 H Sodium 141 Potassium 3.3 L Chloride 101 Carbon Dioxide 34.0 H Anion Gap 6 BUN 18 Creatinine 0.80 Estim Creat Clear Calc 88.72 Est GFR (MDRD) Af Amer 122 Est GFR (MDRD) Non-Af 101 BUN/Creatinine Ratio 22.4 H Glucose 194 H Lactic Acid Calcium 7.9 L Total Bilirubin 0.40 AST 11 L ALT 15 L Alkaline Phosphatase 129 H Troponin I < 0.015 B-Natriuretic Peptide Total Protein 6.7 Albumin 3.0 L Globulin 3.7 Albumin/Globulin Ratio 0.8 L Urine Color Urine Clarity Urine pH Ur Specific [place] Urine Protein Urine Glucose (UA) Urine Ketones Urine Occult Blood Urine Nitrite Urine Bilirubin Urine Urobilinogen Ur Leukocyte Esterase Urine RBC Urine WBC Ur Squamous Epith Cells Urine Bacteria Urine Mucus 06/22/20 06/22/20 06/22/20 14:05 14:05 15:20 WBC RBC Hgb Hct MCV MCH MCHC RDW Std Deviation RDW Coeff of Cinda Plt Count MPV Immature Gran % (Auto) Neut % (Auto) Lymph % (Auto) [place] % (Auto) Eos % (Auto) Baso % (Auto) Absolute Neuts (auto) Absolute Lymphs (auto) Nucleated RBC % PT INR APTT Sodium Potassium Chloride Carbon Dioxide Anion Gap BUN Creatinine Estim Creat Clear Calc Est GFR (MDRD) Af Amer Est GFR (MDRD) Non-Af BUN/Creatinine Ratio Glucose Lactic Acid 2.1 H* Calcium Total Bilirubin AST ALT Alkaline Phosphatase Troponin I B-Natriuretic Peptide 99.5 Total Protein Albumin Globulin Albumin/Globulin Ratio Urine Color Yellow Urine Clarity Clear Urine pH 6.5 Ur Specific [place] 1.010 Urine Protein Negative Urine Glucose (UA) 50 H Urine Ketones Negative Urine Occult Blood Negative Urine Nitrite Negative Urine Bilirubin Negative Urine Urobilinogen Normal Ur Leukocyte Esterase 25 H Urine RBC 0 SEEN Urine WBC 0-5 SEEN Ur Squamous Epith Cells 0-5 SEEN Urine Bacteria 0 SEEN Urine Mucus 0 SEEN Radiography Diagnostic Testing: Radiology Impression Chest X-Ray 06/22/20 15:25 IMPRESSION: Mild degree of vascular congestion. Stable increased markings in the left lung most likely due to prior trauma. Electronically Signed: Mick García MD at 15:37 EDT , Service support , Discharge Plan Dx/Rx/DC Orders Clinical Impression: Acute and chronic respiratory failure, Anemia, COPD (chronic obstructive pulmonary disease) Disposition Disposition: Acute Care [facility]
[2020-06-22] MEDS: Ipratropium/Albuterol Sulfate 3 ML AMPUL.NEB INHALATION ×3 (14:00→19:39)
[2020-06-22 14:15] LABS: Absolute Neutrophil Count 3.2 X10^3/uL (2.0-7.7); Basophil# 0.01 X10^3/uL; Basophil% 0.2 % (0-1); Eosinophil# 0.07 X10^3/uL; Eosinophils% 1.6 % (0-5); Hematocrit 27.5 % (40-54); Hemoglobin 7.8 g/dL (13.0-16.5); Lymphocyte % 17.8 % (19-41); Mean Corp Hgb Conc 28.4 g/dL (32-36); Mean Corpuscular Hgb 22.6 pg (27.0-32.0); Mean Corpuscular Volume 79.7 fL (80-94); Mean Platelet Vol. 10.1 fl (6.2-12.0); Monocyte# 0.43 X10^3/uL; Monocyte% 9.6 % (0-10); NRBC Flagged by Analyzer 0 % (0-5); Neutrophil # 3.17 X10^3/uL (2.7-7.7); Neutrophil % 70.6 % (47-70); Platelet Count 178 K/mm3 (150-450); RBC Distribution Width CV 17.7 % (11.6-14.6); Red Blood Count 3.45 M/mm3 (4.6-6.2); White Blood Count 4.5 K/mm3 (4.4-11.0)
[2020-06-22 14:26] LABS: International Normalized Ratio 1.2; Partial Thromboplast Time 37.6 Seconds (24.1-36.2); Prothrombin Time (Protime)PT. 14.9 SECONDS (11.7-14.9)
[2020-06-22 14:28] LABS: BNP,B-Type NATRIURETIC PEPTIDE 99.5 pg/mL (0-100)
[2020-06-22 14:33] LABS: ALB/GLOB Ratio 0.8 RATIO (0.9-2.4); AST(SGOT) 11 U/L (15-37); Alanine Aminotransfer ALT/SGPT 15 U/L (16-61); Alkaline Phosphatase 129 U/L (45-117); Anion Gap 6 (5-15); BUN 18 mg/dL (7-18); BUN/Creat Ratio 22.4 RATIO (10-20); Calcium,Total 7.9 mg/dL (8.5-10.1); Chloride 101 mmol/L (98-107); EST Glomerular Filtration Rate 101 mL/min (>60); Est Glom Filt Rate - Afr Amer 122 mL/min (>60); Estimated Creatinine Clearance 88.72 ml/min; Globulin 3.7 g/dL (2.2-4.2); Glucose 194 mg/dL (74-106); Potassium 3.3 mmol/L (3.5-5.1); Protein, Total 6.7 g/dL (6.4-8.2); Sodium Level 141 mmol/L (136-145)
[2020-06-22 15:00] LABS: Lactic Acid 2.1 mmol/L (0.4-1.9)
--- NOTE | 2020-06-22 15:25 | RAD_ITS ---
STUDY: X-RAY CHEST REASON FOR EXAM: Male, 70 years old. Cough hypoxia TECHNIQUE: Single AP portable view of the chest. COMPARISON: Comparison is made with prior study dated 05/29/2020. FINDINGS: EKG electrodes are seen. Mild degree of vascular congestion. Stable increased markings in the left lung most likely representing pleural scarring. Sternal cerclage wires and vascular clips are present from a prior sternotomy and coronary artery bypass graft procedure (CABG). Normal mediastinum and cata. Normal visualized pulmonary arteries. There is atherosclerotic tortuosity of the aortic arch and descending thoracic aorta. There are diffuse degenerative changes of the visualized thoracic spine. Multiple left rib fractures ORIF of the fractures. There is no demonstrated abnormality of the visualized soft tissue structures of the upper abdomen. RAD/Chest 1 View (Portable) IMPRESSION: Mild degree of vascular congestion. Stable increased markings in the left lung most likely due to prior trauma. Electronically Signed: Mick García MD at 15:37 EDT , Service support ,
[2020-06-22 15:26] LABS: Bacteria 0 SEEN /hpf (None Seen); Mucous, Urine 0 SEEN /hpf (<or=2+); Red Blood Cells-Urine 0 SEEN /hpf (0-5)
[2020-06-22 15:28] LABS: Color, Urine Yellow (Yellow); Glucose, Dipstick 50 mg/dl (Normal); Ketone-Dipstick Negative (Negative); Leukocyte Esterase-Dipstick 25 /ul (Negative); Nitrite-Dipstick Negative (Negative); Occult Blood-Urine Negative /ul (Negative); Protein-Dipstick Negative (Negative); Urine Bilirubin Dipstick Negative (Negative); Urine Clarity Clear (Clear); Urine Urobilinogen Normal (Normal); Urine pH 6.5 (5.0 - 8.0)
[2020-06-22 15:33] LABS: Squamous Epithelial Cells - UA 0-5 SEEN /hpf (0-5); White Blood Cells 0-5 SEEN /hpf (0-5)
[2020-06-22] MEDS: MethylPREDNISolone 125 MG/2 ML Vial IV (15:55)
--- NOTE | 2020-06-22 16:57 | NURSING ---
CALLED [facility]. LEFT MESSAGE WITH INFO. ASKED THEM TO CALL BACK THAT THEY RECEIVED MESSAGE
--- NOTE | 2020-06-22 16:58 | NURSING ---
COPD, ANEMIA WITH TRANSFUSION, HYPOXIA JACOBY
--- NOTE | 2020-06-22 17:00 | PCM.HP.STD ---
Documented by User: Candice Stafford NP, [employer] 06/22/20 17:32 HPI - General HPI Narrative GIOVANNY LEONARDO, is a 70 M who presents to the emergency room due to shortness of breath. He reports nonproductive cough. Denies fever, chills. Patient reports he wears oxygen as needed at home and has been requiring increased oxygen use. Denies increased swelling, weight gain. Denies chest pain. Denies exposure to sick contacts. Denies other associated symptoms or complaints. Denies black stools or blood in stool. He has a past medical history of COPD with chronic hypoxic respiratory failure, chronic heart failure with preserved ejection fraction, history of CVA with recurrent aphasia, CAD with history of CABG and stents, type 2 diabetes mellitus, hypertension, hyperlipidemia, EKATERINA, BPH, history of seizure disorder, anxiety, depression, obesity. [facility] Medical History (Updated 06/22/20 @ 17:15 by Candice Stafford NP, [employer]) Abnormal EKG Anemia Atherosclerotic heart disease soboba coronary artery w/angina pectoris Chronic respiratory failure Diabetes Essential (primary) hypertension History of fractured rib Hyperlipidemia Obesity EKATERINA (obstructive sleep apnea) Stroke/cerebrovascular accident Wears hearing aid in both ears Home Medications Humulin R U-500 (Conc) Kwikpen 120 unit SQ BREAKFAST 06/11/18 [History Last Taken 06/22/20] Humulin R U-500 (Conc) Kwikpen 120 unit SQ DINNER 06/11/18 [History Last Taken 06/21/20] aspirin 81 mg PO DAILY@0800 06/11/18 [History Last Taken 06/22/20] atorvastatin 80 mg PO QHS 06/11/18 [History Last Taken 06/21/20] cholecalciferol (vitamin D3) [Vitamin D3] 3,000 units PO DAILY 06/11/18 [History Last Taken 06/22/20] clopidogrel 75 mg PO DAILY 06/11/18 [History Last Taken 06/22/20] escitalopram oxalate 10 mg PO DAILY 06/11/18 [History Last Taken 06/22/20] finasteride 5 mg PO DAILY 06/11/18 [History Last Taken 06/22/20] nitroglycerin 0.4 mg SUBLINGUAL Q5M PRN #30 tablet 07/22/18 [Rx Last Taken 01/17/20] albuterol sulfate 1 - 2 puff INHALATION 4X/DAY PRN PRN 04/08/20 [History Last Taken Unknown] tamsulosin 0.4 mg PO QHS #30 cap 04/10/20 [Rx Last Taken 06/21/20] pantoprazole 40 mg PO BID 05/18/20 [History Last Taken 06/22/20] acetaminophen [Tylenol] 325 mg PO Q6H PRN PRN 06/22/20 [History Last Taken 1 Week Ago ~06/15/20] carvedilol 25 mg PO BID 06/22/20 [History Last Taken 06/22/20] furosemide 40 mg PO DAILY 06/22/20 [History Last Taken 06/22/20] multivitamin 1 tab PO DAILY 06/22/20 [History Last Taken 06/22/20] potassium chloride [Klor-Con M20] 20 meq PO DAILY 06/22/20 [History Last Taken 06/22/20] ranolazine 500 mg PO BID 06/22/20 [History Last Taken 06/22/20] tiotropium bromide 2 puff INHALATION DAILY 06/22/20 [History Last Taken Unknown] Allergy/AdvReac Type Severity Reaction Status Date / Time ezetimibe Allergy Unknown Verified 06/22/20 12:45 Fish Containing Products Allergy Unknown Verified 06/22/20 12:45 glyburide Allergy Unknown Verified 06/22/20 12:45 isosorbide Allergy PT UNSURE Verified 06/22/20 12:45 OF REACTION lisinopril Allergy Unknown Verified 06/22/20 12:45 metformin Allergy Nausea Verified 06/22/20 12:45 metoprolol Allergy Unknown Verified 06/22/20 12:45 simvastatin Allergy Unknown Verified 06/22/20 12:45 Family History (Updated 06/22/20 @ 17:21 by Candice Stafford NP, [employer]) Father No problems noted. other (Denies paternal and maternal medical history including cardiac history) Surgical History H/O coronary artery bypass surgery History of cholecystectomy History of coronary artery stent placement History of knee replacement procedure of left knee History of permanent cardiac pacemaker placement (09/10/11) Social History household members: spouse Smoking Status: Former smoker substance use type: does not use ROS Constitutional Constitutional: Denies change in weight, chills, fatigue, fever(s) or weakness Cardiovascular Cardiovascular: Denies chest pain, edema, lightheadedness, palpitations or syncope Respiratory/Chest Respiratory/Chest: Reports cough, dyspnea and wheezing; Denies productive cough, shortness of breath at rest or shortness of breath with exertion Gastrointestinal Gastrointestinal: Denies abdominal pain, constipation, diarrhea, nausea or vomiting Genitourinary Genitourinary: Denies burning urination, difficulty urinating, dysuria, hematuria, urinary frequency, urinary incontinence or urinary urgency Musculoskeletal Musculoskeletal: Denies back pain or joint pain Neurologic Neurologic: Denies abnormal speech, confusion, dizziness, focal weakness, numbness, paresthesias, seizure-like activity or syncope Psychiatric Psychiatric: Denies anxiety or depression Hematologic/Lymphatic Hematologic/Lymphatic: Denies anemia, easy bleeding or easy bruising Allergic/Immunologic Allergic/Immunologic: Denies hives or asthma Vital Signs Vital Signs Vital Signs: 06/22/20 12:45 06/22/20 13:41 06/22/20 14:00 Temperature 97.2 F L Temperature Source Temporal Pulse Rate 60 71 70 Respiratory Rate 22 H 17 Blood Pressure 160/72 H 142/44 H Blood Pressure Mean 101 76 Pulse Ox 100 98 Oxygen Delivery Method Nasal Cannula Nasal Cannula Nasal Cannula Oxygen Flow Rate (L/min) 4 3 06/22/20 14:56 06/22/20 15:59 06/22/20 16:00 Temperature 98.1 F Temperature Source Oral Pulse Rate 67 84 60 Respiratory Rate 22 H 19 H 15 Blood Pressure 142/44 H 160/73 H Blood Pressure Mean 76 102 Pulse Ox 94 98 97 Oxygen Delivery Method Nasal Cannula Nasal Cannula Nasal Cannula Oxygen Flow Rate (L/min) 3 2 3 Physical Exam Const alert, oriented x3 and no apparent distress Orientation / Consciousness: awake, oriented to person, oriented to place and oriented to time HEENT normocephalic and moist oral mucous membranes Eyes PERRL, EOMs intact bilaterally and conjunctivae normal Neck no lymphadenopathy Resp normal respiratory effort and clear to auscultation bilaterally Cardio regular rate, regular rhythm and no murmurs Peripheral Pulses: pulses 2+ throughout GI normal to inspection, nondistended, normoactive bowel sounds, non-tender and non-distended Extremity normal to inspection Skin no rashes or lesions noted Lesions: no lesions Rashes: no rashes Trauma: no lacerations or abrasions Neuro oriented x3 Sensorium / Orientation: awake and alert Psych affect normal Lab / Micro Data Result Diagrams: 06/22/20 14:05 06/22/20 14:05 Labs: Laboratory Results - last 24 hr 06/22/20 06/22/20 06/22/20 14:05 14:05 14:05 WBC 4.5 RBC 3.45 L Hgb 7.8 L Hct 27.5 L MCV 79.7 L MCH 22.6 L MCHC 28.4 L RDW Std Deviation 51.0 H RDW Coeff of Cinda 17.7 H Plt Count 178 MPV 10.1 Immature Gran % (Auto) 0.200 Neut % (Auto) 70.6 H Lymph % (Auto) 17.8 L Miller % (Auto) 9.6 Eos % (Auto) 1.6 Baso % (Auto) 0.2 Absolute Neuts (auto) 3.2 Absolute Lymphs (auto) 0.80 L Nucleated RBC % 0 PT 14.9 INR 1.2 APTT 37.6 H Sodium 141 Potassium 3.3 L Chloride 101 Carbon Dioxide 34.0 H Anion Gap 6 BUN 18 Creatinine 0.80 Estim Creat Clear Calc 88.72 Est GFR (MDRD) Af Amer 122 Est GFR (MDRD) Non-Af 101 BUN/Creatinine Ratio 22.4 H Glucose 194 H Lactic Acid Calcium 7.9 L Total Bilirubin 0.40 AST 11 L ALT 15 L Alkaline Phosphatase 129 H Troponin I < 0.015 B-Natriuretic Peptide Total Protein 6.7 Albumin 3.0 L Globulin 3.7 Albumin/Globulin Ratio 0.8 L Urine Color Urine Clarity Urine pH Ur Specific [place] Urine Protein Urine Glucose (UA) Urine Ketones Urine Occult Blood Urine Nitrite Urine Bilirubin Urine Urobilinogen Ur Leukocyte Esterase Urine RBC Urine WBC Ur Squamous Epith Cells Urine Bacteria Urine Mucus 06/22/20 06/22/20 06/22/20 14:05 14:05 15:20 WBC RBC Hgb Hct MCV MCH MCHC RDW Std Deviation RDW Coeff of Cinda Plt Count MPV Immature Gran % (Auto) Neut % (Auto) Lymph % (Auto) Miller % (Auto) Eos % (Auto) Baso % (Auto) Absolute Neuts (auto) Absolute Lymphs (auto) Nucleated RBC % PT INR APTT Sodium Potassium Chloride Carbon Dioxide Anion Gap BUN Creatinine Estim Creat Clear Calc Est GFR (MDRD) Af Amer Est GFR (MDRD) Non-Af BUN/Creatinine Ratio Glucose Lactic Acid 2.1 H* Calcium Total Bilirubin AST ALT Alkaline Phosphatase Troponin I B-Natriuretic Peptide 99.5 Total Protein Albumin Globulin Albumin/Globulin Ratio Urine Color Yellow Urine Clarity Clear Urine pH 6.5 Ur Specific [place]el 1.010 Urine Protein Negative Urine Glucose (UA) 50 H Urine Ketones Negative Urine Occult Blood Negative Urine Nitrite Negative Urine Bilirubin Negative Urine Urobilinogen Normal Ur Leukocyte Esterase 25 H Urine RBC 0 SEEN Urine WBC 0-5 SEEN Ur Squamous Epith Cells 0-5 SEEN Urine Bacteria 0 SEEN Urine Mucus 0 SEEN Micro: Microbiology 06/22/20 15:55 Stool Occult Blood (MATT) - Final Stool 06/22/20 14:05 SARS-CoV-2 Antigen (Rapid) - Final Nasal Secretion Radiology Impression Chest X-Ray 06/22/20 15:25 IMPRESSION: Mild degree of vascular congestion. Stable increased markings in the left lung most likely due to prior trauma. Electronically Signed: Mick García MD at 15:37 EDT , Service support , Assessment & Plan Assessment/Plan (1) COPD (chronic obstructive pulmonary disease): QUALIFIERS: COPD type: COPD with acute exacerbation Qualified Code(s): J44.1 - Chronic obstructive pulmonary disease with (acute) exacerbation (2) Anemia: QUALIFIERS: Anemia type: unspecified type Qualified Code(s): D64.9 - Anemia, unspecified PLAN: 1. Acute on chronic hypoxic respiratory failure secondary to exacerbation of COPD-states he wears oxygen as needed at home however previously discharged on 4 L with exertion. Chest x-ray without infiltrate. IV Solu-Medrol. Albuterol DuoNeb aerosols. Continue supplement oxygen to maintain O2 at above 90%. 2. Acute on chronic anemia-slightly below baseline. Stool for occult blood negative. Check iron studies. Trend CBC. Transfuse for hemoglobin less than 7. 3. Chronic heart failure with preserved ejection fraction-no exacerbation. Recent echocardiogram demonstrates an EF of 60%. 4. History of CVA with recurrent aphasia-Continue aspirin, statin, Plavix. 5. CAD with history of CABG and stents-continue aspirin, statin, Plavix, carvedilol, Ranexa. 6. Type 2 diabetes mellitus-continue home insulin regimen. 7. Hypertension-stable, continue carvedilol, Lasix. 8. Hyperlipidemia-continue high-dose statin. 9. EKATERINA-continue home BiPAP regimen. 10. BPH-continue Flomax, proscar. 11. History of seizure disorder? Previously on Keppra. No longer taking. 12. Anxiety/depression-continue Lexapro. 13. Morbid obesity- encouraged diet and lifestyle modifications. DVT prophylaxis- Lovenox sc This patient was seen by KELLY Dyson under the supervision of Dr. Strickland. Documented by User: Dr. Víctor Strickland MD 06/22/20 19:45 HPI - General General Date of Admission: 06/22/20 [facility] Medical History (Updated 06/22/20 @ 17:15 by Candice Stafford NP, [employer]) Abnormal EKG Anemia Atherosclerotic heart disease soboba coronary artery w/angina pectoris Chronic respiratory failure Diabetes Essential (primary) hypertension History of fractured rib Hyperlipidemia Obesity EKATERINA (obstructive sleep apnea) Stroke/cerebrovascular accident Wears hearing aid in both ears Home Medications Humulin R U-500 (Conc) Kwikpen 120 unit SQ BREAKFAST 06/11/18 [History Last Taken 06/22/20] Humulin R U-500 (Conc) Kwikpen 120 unit SQ DINNER 06/11/18 [History Last Taken 06/21/20] aspirin 81 mg PO DAILY@0800 06/11/18 [History Last Taken 06/22/20] atorvastatin 80 mg PO QHS 06/11/18 [History Last Taken 06/21/20] cholecalciferol (vitamin D3) [Vitamin D3] 3,000 units PO DAILY 06/11/18 [History Last Taken 06/22/20] clopidogrel 75 mg PO DAILY 06/11/18 [History Last Taken 06/22/20] escitalopram oxalate 10 mg PO DAILY 06/11/18 [History Last Taken 06/22/20] finasteride 5 mg PO DAILY 06/11/18 [History Last Taken 06/22/20] nitroglycerin 0.4 mg SUBLINGUAL Q5M PRN #30 tablet 07/22/18 [Rx Last Taken 01/17/20] albuterol sulfate 1 - 2 puff INHALATION 4X/DAY PRN PRN 04/08/20 [History Last Taken Unknown] tamsulosin 0.4 mg PO QHS #30 cap 04/10/20 [Rx Last Taken 06/21/20] pantoprazole 40 mg PO BID 05/18/20 [History Last Taken 06/22/20] acetaminophen [Tylenol] 325 mg PO Q6H PRN PRN 06/22/20 [History Last Taken 1 Week Ago ~06/15/20] carvedilol 25 mg PO BID 06/22/20 [History Last Taken 06/22/20] furosemide 40 mg PO DAILY 06/22/20 [History Last Taken 06/22/20] multivitamin 1 tab PO DAILY 06/22/20 [History Last Taken 06/22/20] potassium chloride [Klor-Con M20] 20 meq PO DAILY 06/22/20 [History Last Taken 06/22/20] ranolazine 500 mg PO BID 06/22/20 [History Last Taken 06/22/20] tiotropium bromide 2 puff INHALATION DAILY 06/22/20 [History Last Taken Unknown] Allergy/AdvReac Type Severity Reaction Status Date / Time ezetimibe Allergy Unknown Verified 06/22/20 12:45 Fish Containing Products Allergy Unknown Verified 06/22/20 12:45 glyburide Allergy Unknown Verified 06/22/20 12:45 isosorbide Allergy PT UNSURE Verified 06/22/20 12:45 OF REACTION lisinopril Allergy Unknown Verified 06/22/20 12:45 metformin Allergy Nausea Verified 06/22/20 12:45 metoprolol Allergy Unknown Verified 06/22/20 12:45 simvastatin Allergy Unknown Verified 06/22/20 12:45 Family History (Updated 06/22/20 @ 17:21 by Candice Stafford NP, [employer]) Father No problems noted. Surgical History H/O coronary artery bypass surgery History of cholecystectomy History of coronary artery stent placement History of knee replacement procedure of left knee History of permanent cardiac pacemaker placement (09/10/11) Social History household members: spouse Smoking Status: Former smoker substance use type: does not use Lab / Micro Data Result Diagrams: 06/22/20 14:05 06/22/20 14:05 Addendum Addendum: Dr. Strickland: I personally reviewed the chart and examined the patient, and agree with the above findings. 70-year-old male has been in the hospital several times over the last several months presents with worsening shortness of breath. He is on 2 to 3 L nasal cannula here in the ER with some wheezing but not consistent with a severe COPD exacerbation. He did have some improvement in his wheezing with nebulizer treatment therefore also be started on oral steroids. He is been found to be becoming more anemic over the last several months, and currently has a microcytic anemia as well fecal occult was negative for blood and he denies any black stools. Hemoglobin is currently 7.8 therefore will check an iron panel and if he does have iron deficiency will provide iron infusion, in the meantime we will transfuse him 1 unit given his history of CABG. Visit Charges Inpatient E&M: [id number] Init Hosp L3
[2020-06-22 18:11] LABS: Reflex Lactate? Y
[2020-06-22 19:01] LABS: Bedside Glucose 302 mg/dL (70-110)
[2020-06-22 20:07] LABS: Ferritin 14 ng/mL (26-388); Iron 22 ug/dL (65-175); Iron Binding Capacity,Total 428 ug/dL (250-450); PERCENT IRON SATURATION 5.1 % (15.0-55.0)
[2020-06-22 20:08] LABS: Lactic Acid 2.4 mmol/L (0.4-1.9)
[2020-06-22] MEDS: Insulin U-500 UNITS/ML PEN 120 UNITS SC (20:17)
[2020-06-22] MEDS: guaiFENesin 10 ML UDC (200MG/10ML) PO (20:39)
[2020-06-22] MEDS: 0.9% Saline Lock 10 ML Syringe IV (20:39)
[2020-06-22] MEDS: Atorvastatin Calcium 80 MG Tablet PO (21:53)
[2020-06-22] MEDS: levETIRAcetam 1,000 MG Tablet 1000 MG PO (21:53)
[2020-06-22] MEDS: Tamsulosin HCl 0.4 MG Capsule PO (21:54)
[2020-06-22] MEDS: Pantoprazole Sodium 40 MG Tablet PO (21:54)
[2020-06-22] MEDS: Ranolazine 500 MG Tablet PO (21:55)
[2020-06-22] MEDS: Insulin Lispro 100 UNIT/ML INSULN.PEN SC (22:25)
[2020-06-22 22:40] LABS: Bedside Glucose 307 mg/dL (70-110)
[2020-06-23] VITALS (13 sets, daily range): BP systolic 129–143; BP diastolic 52–77; PULSE 60–88; RESP 16–22; TEMP 36.3–36.8; O2SAT 84–97
[2020-06-23] MEDS: Furosemide 40 MG/4 ML Vial IV (02:40)
[2020-06-23] MEDS: 0.9% Saline Lock 10 ML Syringe IV (02:46)
[2020-06-23] MEDS: guaiFENesin 10 ML UDC (200MG/10ML) PO ×2 (03:19→13:11)
[2020-06-23] MEDS: Insulin Lispro 100 UNIT/ML INSULN.PEN SC ×2 (06:44→11:29)
[2020-06-23 07:01] LABS: Bedside Glucose 198 mg/dL (70-110)
[2020-06-23] MEDS: Ipratropium/Albuterol Sulfate 3 ML AMPUL.NEB INHALATION ×2 (07:27→11:19)
[2020-06-23 08:03] LABS: Absolute Lymphocyte Count 0.32 X10^3/uL (0.83-4.51); Absolute Neutrophil Count 3.4 X10^3/uL (2.0-7.7); Hematocrit 31.2 % (40-54); Lymphocyte # 0.32 X10^3/ul (0.83-4.51); Lymphocyte % 8.4 % (19-41); Mean Corp Hgb Conc 28.8 g/dL (32-36); Mean Corpuscular Hgb 23.1 pg (27.0-32.0); Mean Corpuscular Volume 80.2 fL (80-94); Mean Platelet Vol. 11.1 fl (6.2-12.0); Monocyte# 0.12 X10^3/uL; Monocyte% 3.1 % (0-10); NRBC Flagged by Analyzer 0 % (0-5); Neutrophil # 3.37 X10^3/uL (2.7-7.7); Neutrophil % 88.2 % (47-70); POSITIVE DIFFERENTIAL YES; Platelet Count 180 K/mm3 (150-450); RBC Distribution Width CV 17.2 % (11.6-14.6); RBC Distribution Width SD 50.3 fl (35.1-43.9); Red Blood Count 3.89 M/mm3 (4.6-6.2); White Blood Count 3.8 K/mm3 (4.4-11.0)
[2020-06-23 08:11] LABS: Differential Indicated SCAN CRITERIA MET
[2020-06-23 08:13] LABS: Anion Gap 5 (5-15); BUN 19 mg/dL (7-18); BUN/Creat Ratio 24.4 RATIO (10-20); Calcium,Total 8.2 mg/dL (8.5-10.1); Chloride 102 mmol/L (98-107); Creatinine, Serum 0.78 mg/dL (0.70-1.30); EST Glomerular Filtration Rate 105 mL/min (>60); Est Glom Filt Rate - Afr Amer 127 mL/min (>60); Estimated Creatinine Clearance 70.97 ml/min; Glucose 211 mg/dL (74-106); Potassium 3.5 mmol/L (3.5-5.1); Sodium Level 140 mmol/L (136-145)
[2020-06-23 09:03] LABS: Differential Comment SCANNED
[2020-06-23] MEDS: Furosemide 20 MG Tablet PO (09:10)
[2020-06-23] MEDS: levETIRAcetam 1,000 MG Tablet 1000 MG PO (09:10)
[2020-06-23] MEDS: predniSONE 20 MG Tablet 40 MG PO (09:10)
[2020-06-23] MEDS: Aspirin E.C. 81 MG Tablet PO (09:10)
[2020-06-23] MEDS: Finasteride 5 MG Tablet PO (09:11)
[2020-06-23] MEDS: Escitalopram Oxalate 10 MG Tablet PO (09:11)
[2020-06-23] MEDS: Clopidogrel Bisulfate 75 MG Tablet PO (09:11)
[2020-06-23] MEDS: Cholecalciferol (VIT D3) 25 MCG TABLET (1,000 UNITS) 75 MCG PO (09:12)
[2020-06-23] MEDS: Pantoprazole Sodium 40 MG Tablet PO (09:12)
[2020-06-23] MEDS: Ranolazine 500 MG Tablet PO (09:12)
[2020-06-23] MEDS: Insulin U-500 UNITS/ML PEN 120 UNITS SC (09:16)
--- NOTE | 2020-06-23 10:48 | PCM.DC ---
Discharge Instructions Diet Discharge Diet: Low fat / Low cholesterol and Carb Control Diet Activity Discharge Activity: Return to Normal Activity Dressing / Incision Call your doctor if you observe: Fever of 101 or Higher, Shortness of breath, Dizziness and Chest pain Follow Up Care Test Results: Test results from this visit will be discussed in further detail at your follow-up appointment, if applicable. Discharge Plan Admission Admit Date/Time: 06/22/20 16:51 Attending Provider: Lamar Brown Primary Care Provider: [facility] Discharge Orders/Prescriptions Prescriptions: New prednisone 10 mg tablet See Taper mg PO DAILY Qty: 30 RF: 0 Continued atorvastatin 80 MG tablet 80 mg PO QHS RF: 0 clopidogrel 75 MG tablet 75 mg PO DAILY RF: 0 aspirin 81 MG tablet 81 mg PO DAILY@0800 RF: 0 finasteride 5 MG tablet 5 mg PO DAILY RF: 0 escitalopram oxalate 10 MG tablet 10 mg PO DAILY RF: 0 cholecalciferol (vitamin D3) [Vitamin D3] 1,000 UNIT tablet 3,000 units PO DAILY RF: 0 Humulin R U-500 (Conc) Kwikpen 500 UNIT/ML insulin pen 120 unit SQ BREAKFAST RF: 0 Humulin R U-500 (Conc) Kwikpen 500 UNIT/ML insulin pen 120 unit SQ DINNER RF: 0 nitroglycerin 0.4 MG tablet, sublingual 0.4 mg sublingual Q5M PRN (Reason: Chest Pain) Qty: 30 RF: 0 albuterol sulfate 1 INHALER inhaler 1 - 2 puff INHALATION 4X/DAY PRN PRN (Reason: Sob &/Or Wheezing) RF: 0 tamsulosin 0.4 MG capsule 0.4 mg PO QHS Qty: 30 RF: 0 pantoprazole 40 MG tablet 40 mg PO BID RF: 0 tiotropium bromide 2.5 mcg/actuation Mist 2 puff INHALATION DAILY RF: 0 carvedilol 25 MG tablet 25 mg PO BID RF: 0 multivitamin Tablet 1 tab PO DAILY RF: 0 furosemide 40 mg Tablet 40 mg PO DAILY RF: 0 potassium chloride [Klor-Con M20] 20 mEq Tablet,Er Particles/Crystals 20 meq PO DAILY RF: 0 ranolazine 500 mg Tablet Extended Release 12 Hr 500 mg PO BID RF: 0 acetaminophen [Tylenol] 325 MG tablet 325 mg PO Q6H PRN PRN (Reason: Mild pain 1-3/Temp > 100.7 F) RF: 0 Referrals / Follow Up: William Alvarado MD [STAFF PHYSICIAN] - [facility] 1 Week ([facility] [Primary Care Provider] - In 1 Week Disposition Disposition (needs filled in before D/C Order can be placed): Home Health Service
--- NOTE | 2020-06-23 11:03 | DS.PCM_ITS ---
Documented by User: Candice Stafford NP, [employer] OPERATOR-C 06/23/20 11:12 Providers Date of Admission: 06/22/20 Primary Care Physician: [facility] Reason For Visit: COPD/SOB/ANEMIA Diagnosis Discharge Diagnosis (1) COPD (chronic obstructive pulmonary disease): Status: Chronic Code(s): J44.9 - Chronic obstructive pulmonary disease, unspecified Qualifiers: COPD type: COPD with acute exacerbation Qualified Code(s): J44.1 - Chronic obstructive pulmonary disease with (acute) exacerbation (2) Anemia: Status: Acute Code(s): D64.9 - Anemia, unspecified Qualifiers: Anemia type: unspecified type Qualified Code(s): D64.9 - Anemia, unspecified Medications at Discharge Home Medications Humulin R U-500 (Conc) Kwikpen 120 unit SQ BREAKFAST 06/11/18 Humulin R U-500 (Conc) Kwikpen 120 unit SQ DINNER 06/11/18 aspirin 81 mg PO DAILY@0800 06/11/18 atorvastatin 80 mg PO QHS 06/11/18 cholecalciferol (vitamin D3) [Vitamin D3] 3,000 units PO DAILY 06/11/18 clopidogrel 75 mg PO DAILY 06/11/18 escitalopram oxalate 10 mg PO DAILY 06/11/18 finasteride 5 mg PO DAILY 06/11/18 nitroglycerin 0.4 mg SUBLINGUAL Q5M PRN #30 tablet 07/22/18 albuterol sulfate 1 - 2 puff INHALATION 4X/DAY PRN PRN 04/08/20 tamsulosin 0.4 mg PO QHS #30 cap 04/10/20 pantoprazole 40 mg PO BID 05/18/20 acetaminophen [Tylenol] 325 mg PO Q6H PRN PRN 06/22/20 carvedilol 25 mg PO BID 06/22/20 furosemide 40 mg PO DAILY 06/22/20 multivitamin 1 tab PO DAILY 06/22/20 potassium chloride [Klor-Con M20] 20 meq PO DAILY 06/22/20 ranolazine 500 mg PO BID 06/22/20 tiotropium bromide 2 puff INHALATION DAILY 06/22/20 ferrous sulfate 325 mg PO BID #60 tab 06/23/20 prednisone See Taper PO DAILY #30 tab 06/23/20 Hospital Course Operations None Procedures None Summary of Care Provided Minutes Spent on Discharge: 35 Hospital Course: Patient is a 70-year-old male admitted 06/22/2020 due to shortness of breath. 1. Acute on chronic hypoxic respiratory failure secondary to exacerbation of COPD-states he wears oxygen as needed at home however previously discharged on 4 L with exertion and 2 L nasal cannula at rest. Chest x-ray without infiltrate. IV Solu-Medrol during admission. Continue home inhaler regimen. Continue supplement oxygen as prescribed. Prednisone taper at discharge. Follow-up with PCP in [place] pulmonary in 1 week 2. Acute on chronic anemia-slightly below baseline on admission. Stool for occult blood negative. Hemoglobin at discharge 9. Follow CBC as outpatient. Iron studies consistent with iron deficiency. Begin iron supplementation at discharge. 3. Chronic heart failure with preserved ejection fraction-no exacerbation. Recent echocardiogram demonstrates an EF of 60%. 4. History of CVA with recurrent aphasia-Continue aspirin, statin, Plavix. 5. CAD with history of CABG and stents-continue aspirin, statin, Plavix, carvedilol, Ranexa. 6. Type 2 diabetes mellitus-continue home insulin regimen. 7. Hypertension-stable, continue carvedilol, Lasix. 8. Hyperlipidemia-continue high-dose statin. 9. EKATERINA-continue home BiPAP regimen. 10. BPH-continue Flomax, proscar. 11. History of seizure disorder? Previously on Keppra. No longer taking. 12. Anxiety/depression-continue Lexapro. 13. Morbid obesity- encouraged diet and lifestyle modifications. Physical Exam Const alert, oriented x3 and no apparent distress Orientation / Consciousness: awake, oriented to person, oriented to place and oriented to time HEENT normocephalic and moist oral mucous membranes Eyes PERRL, EOMs intact bilaterally and conjunctivae normal Neck no lymphadenopathy Resp normal respiratory effort and clear to auscultation bilaterally Cardio regular rate, regular rhythm and no murmurs Peripheral Pulses: pulses 2+ throughout GI normal to inspection, nondistended, normoactive bowel sounds, non-tender and non-distended Extremity normal to inspection Skin no rashes or lesions noted Lesions: no lesions Rashes: no rashes Trauma: no lacerations or abrasions Neuro oriented x3 Sensorium / Orientation: awake and alert Psych affect normal Patient seen and examined prior to discharge. Physical assessment as noted above. Patient is stable for discharge with follow up recommendations as noted above. This patient was seen by KELLY Dyson under the supervision of Dr. Brown. ABG / Lab / Microbiology Data Result Diagrams: 06/23/20 07:22 06/23/20 07:22 Laboratory: Laboratory Results - last 24 hr 06/22/20 06/22/20 06/22/20 14:05 14:05 14:05 WBC 4.5 RBC 3.45 L Hgb 7.8 L Hct 27.5 L MCV 79.7 L MCH 22.6 L MCHC 28.4 L RDW Std Deviation 51.0 H RDW Coeff of Cinda 17.7 H Plt Count 178 MPV 10.1 Immature Gran % (Auto) 0.200 Neut % (Auto) 70.6 H Lymph % (Auto) 17.8 L [place] % (Auto) 9.6 Eos % (Auto) 1.6 Baso % (Auto) 0.2 Absolute Neuts (auto) 3.2 Absolute Lymphs (auto) 0.80 L Nucleated RBC % 0 Differential Comment PT 14.9 INR 1.2 APTT 37.6 H Sodium 141 Potassium 3.3 L Chloride 101 Carbon Dioxide 34.0 H Anion Gap 6 BUN 18 Creatinine 0.80 Estim Creat Clear Calc 88.72 Est GFR (MDRD) Af Amer 122 Est GFR (MDRD) Non-Af 101 BUN/Creatinine Ratio 22.4 H Glucose 194 H Lactic Acid Calcium 7.9 L Iron TIBC Iron Saturation Ferritin Total Bilirubin 0.40 AST 11 L ALT 15 L Alkaline Phosphatase 129 H Troponin I < 0.015 B-Natriuretic Peptide Total Protein 6.7 Albumin 3.0 L Globulin 3.7 Albumin/Globulin Ratio 0.8 L Urine Color Urine Clarity Urine pH Ur Specific [place] Urine Protein Urine Glucose (UA) Urine Ketones Urine Occult Blood Urine Nitrite Urine Bilirubin Urine Urobilinogen Ur Leukocyte Esterase Urine RBC Urine WBC Ur Squamous Epith Cells Urine Bacteria Urine Mucus POC Glucose Blood Type Antibody Screen Crossmatch 06/22/20 06/22/20 06/22/20 14:05 14:05 15:20 WBC RBC Hgb Hct MCV MCH MCHC RDW Std Deviation RDW Coeff of Cinda Plt Count MPV Immature Gran % (Auto) Neut % (Auto) Lymph % (Auto) [place] % (Auto) Eos % (Auto) Baso % (Auto) Absolute Neuts (auto) Absolute Lymphs (auto) Nucleated RBC % Differential Comment PT INR APTT Sodium Potassium Chloride Carbon Dioxide Anion Gap BUN Creatinine Estim Creat Clear Calc Est GFR (MDRD) Af Amer Est GFR (MDRD) Non-Af BUN/Creatinine Ratio Glucose Lactic Acid 2.1 H* Calcium Iron TIBC Iron Saturation Ferritin Total Bilirubin AST ALT Alkaline Phosphatase Troponin I B-Natriuretic Peptide 99.5 Total Protein Albumin Globulin Albumin/Globulin Ratio Urine Color Yellow Urine Clarity Clear Urine pH 6.5 Ur Specific [place] 1.010 Urine Protein Negative Urine Glucose (UA) 50 H Urine Ketones Negative Urine Occult Blood Negative Urine Nitrite Negative Urine Bilirubin Negative Urine Urobilinogen Normal Ur Leukocyte Esterase 25 H Urine RBC 0 SEEN Urine WBC 0-5 SEEN Ur Squamous Epith Cells 0-5 SEEN Urine Bacteria 0 SEEN Urine Mucus 0 SEEN POC Glucose Blood Type Antibody Screen Crossmatch 06/22/20 06/22/20 06/22/20 18:34 18:34 18:58 WBC RBC Hgb Hct MCV MCH MCHC RDW Std Deviation RDW Coeff of Cinda Plt Count MPV Immature Gran % (Auto) Neut % (Auto) Lymph % (Auto) [place] % (Auto) Eos % (Auto) Baso % (Auto) Absolute Neuts (auto) Absolute Lymphs (auto) Nucleated RBC % Differential Comment PT INR APTT Sodium Potassium Chloride Carbon Dioxide Anion Gap BUN Creatinine Estim Creat Clear Calc Est GFR (MDRD) Af Amer Est GFR (MDRD) Non-Af BUN/Creatinine Ratio Glucose Lactic Acid 2.4 H* Calcium Iron 22 L TIBC 428 Iron Saturation 5.1 L Ferritin 14 L Total Bilirubin AST ALT Alkaline Phosphatase Troponin I B-Natriuretic Peptide Total Protein Albumin Globulin Albumin/Globulin Ratio Urine Color Urine Clarity Urine pH Ur Specific [place] Urine Protein Urine Glucose (UA) Urine Ketones Urine Occult Blood Urine Nitrite Urine Bilirubin Urine Urobilinogen Ur Leukocyte Esterase Urine RBC Urine WBC Ur Squamous Epith Cells Urine Bacteria Urine Mucus POC Glucose 302 H Blood Type Antibody Screen Crossmatch 06/22/20 06/22/20 06/23/20 19:47 22:21 06:43 WBC RBC Hgb Hct MCV MCH MCHC RDW Std Deviation RDW Coeff of Cinda Plt Count MPV Immature Gran % (Auto) Neut % (Auto) Lymph % (Auto) [place] % (Auto) Eos % (Auto) Baso % (Auto) Absolute Neuts (auto) Absolute Lymphs (auto) Nucleated RBC % Differential Comment PT INR APTT Sodium Potassium Chloride Carbon Dioxide Anion Gap BUN Creatinine Estim Creat Clear Calc Est GFR (MDRD) Af Amer Est GFR (MDRD) Non-Af BUN/Creatinine Ratio Glucose Lactic Acid Calcium Iron TIBC Iron Saturation Ferritin Total Bilirubin AST ALT Alkaline Phosphatase Troponin I B-Natriuretic Peptide Total Protein Albumin Globulin Albumin/Globulin Ratio Urine Color Urine Clarity Urine pH Ur Specific [place] Urine Protein Urine Glucose (UA) Urine Ketones Urine Occult Blood Urine Nitrite Urine Bilirubin Urine Urobilinogen Ur Leukocyte Esterase Urine RBC Urine WBC Ur Squamous Epith Cells Urine Bacteria Urine Mucus POC Glucose 307 H 198 H Blood Type O POSITIVE Antibody Screen NEGATIVE Crossmatch See Detail 06/23/20 06/23/20 07:22 07:22 WBC 3.8 L RBC 3.89 L Hgb 9.0 L Hct 31.2 L MCV 80.2 MCH 23.1 L MCHC 28.8 L RDW Std Deviation 50.3 H RDW Coeff of Cinda 17.2 H Plt Count 180 MPV 11.1 Immature Gran % (Auto) 0.300 Neut % (Auto) 88.2 H Lymph % (Auto) 8.4 L [place] % (Auto) 3.1 Eos % (Auto) 0.0 Baso % (Auto) 0.0 Absolute Neuts (auto) 3.4 Absolute Lymphs (auto) 0.32 L Nucleated RBC % 0 Differential Comment SCANNED PT INR APTT Sodium 140 Potassium 3.5 Chloride 102 Carbon Dioxide 33.0 H Anion Gap 5 BUN 19 H Creatinine 0.78 Estim Creat Clear Calc 70.97 Est GFR (MDRD) Af Amer 127 Est GFR (MDRD) Non-Af 105 BUN/Creatinine Ratio 24.4 H Glucose 211 H Lactic Acid Calcium 8.2 L Iron TIBC Iron Saturation Ferritin Total Bilirubin AST ALT Alkaline Phosphatase Troponin I B-Natriuretic Peptide Total Protein Albumin Globulin Albumin/Globulin Ratio Urine Color Urine Clarity Urine pH Ur Specific [place] Urine Protein Urine Glucose (UA) Urine Ketones Urine Occult Blood Urine Nitrite Urine Bilirubin Urine Urobilinogen Ur Leukocyte Esterase Urine RBC Urine WBC Ur Squamous Epith Cells Urine Bacteria Urine Mucus POC Glucose Blood Type Antibody Screen Crossmatch Microbiology: Microbiology 06/22/20 15:55 Stool Occult Blood (MATT) - Final Stool 06/22/20 14:05 SARS-CoV-2 Antigen (Rapid) - Final Nasal Secretion Microbiology 06/22/20 15:55 Stool Stool Occult Blood (MATT) - Final 06/22/20 14:05 Nasal Secretion SARS-CoV-2 Antigen (Rapid) - Final Radiography Diagnostic Testing: Radiology Impression Chest X-Ray 06/22/20 15:25 IMPRESSION: Mild degree of vascular congestion. Stable increased markings in the left lung most likely due to prior trauma. Electronically Signed: Mick García MD at 15:37 EDT , Service support , D/C Instructions Discharge Diet: Low fat / Low cholesterol and Carb Control Diet Discharge Activity: Return to Normal Activity Call your doctor if you observe: Fever of 101 or Higher, Shortness of breath, Dizziness and Chest pain Meaningful Use Info Meaningful Use Diagnoses (Choose all that apply): None applicable Discharge Plan Admission Admit Date/Time: 06/22/20 16:51 Attending Provider: Lamar Brown Primary Care Provider: [facility] Discharge Orders/Prescriptions Prescriptions: New prednisone 10 mg tablet See Taper mg PO DAILY Qty: 30 RF: 0 ferrous sulfate 325 mg (65 mg iron) tablet 325 mg PO BID Qty: 60 RF: 0 Continued atorvastatin 80 MG tablet 80 mg PO QHS RF: 0 clopidogrel 75 MG tablet 75 mg PO DAILY RF: 0 aspirin 81 MG tablet 81 mg PO DAILY@0800 RF: 0 finasteride 5 MG tablet 5 mg PO DAILY RF: 0 escitalopram oxalate 10 MG tablet 10 mg PO DAILY RF: 0 cholecalciferol (vitamin D3) [Vitamin D3] 1,000 UNIT tablet 3,000 units PO DAILY RF: 0 Humulin R U-500 (Conc) Kwikpen 500 UNIT/ML insulin pen 120 unit SQ BREAKFAST RF: 0 Humulin R U-500 (Conc) Kwikpen 500 UNIT/ML insulin pen 120 unit SQ DINNER RF: 0 nitroglycerin 0.4 MG tablet, sublingual 0.4 mg sublingual Q5M PRN (Reason: Chest Pain) Qty: 30 RF: 0 albuterol sulfate 1 INHALER inhaler 1 - 2 puff INHALATION 4X/DAY PRN PRN (Reason: Sob &/Or Wheezing) RF: 0 tamsulosin 0.4 MG capsule 0.4 mg PO QHS Qty: 30 RF: 0 pantoprazole 40 MG tablet 40 mg PO BID RF: 0 tiotropium bromide 2.5 mcg/actuation Mist 2 puff INHALATION DAILY RF: 0 carvedilol 25 MG tablet 25 mg PO BID RF: 0 multivitamin Tablet 1 tab PO DAILY RF: 0 furosemide 40 mg Tablet 40 mg PO DAILY RF: 0 potassium chloride [Klor-Con M20] 20 mEq Tablet,Er Particles/Crystals 20 meq PO DAILY RF: 0 ranolazine 500 mg Tablet Extended Release 12 Hr 500 mg PO BID RF: 0 acetaminophen [Tylenol] 325 MG tablet 325 mg PO Q6H PRN PRN (Reason: Mild pain 1-3/Temp > 100.7 F) RF: 0 Referrals / Follow Up: William Alvarado MD [STAFF PHYSICIAN] - [facility] Week [facility] [Primary Care Provider] - In 1 Week Disposition Disposition (needs filled in before D/C Order can be placed): Home Health Service Documented by User: Dr. Lamar Brown MD 06/23/20 15:35 Providers Date of Admission: 06/22/20 Reason For Visit: COPD/SOB/ANEMIA Medications at Discharge Home Medications Humulin R U-500 (Conc) Kwikpen 120 unit SQ BREAKFAST 06/11/18 Humulin R U-500 (Conc) Kwikpen 120 unit SQ DINNER 06/11/18 aspirin 81 mg PO DAILY@0800 06/11/18 atorvastatin 80 mg PO QHS 06/11/18 cholecalciferol (vitamin D3) [Vitamin D3] 3,000 units PO DAILY 06/11/18 clopidogrel 75 mg PO DAILY 06/11/18 escitalopram oxalate 10 mg PO DAILY 06/11/18 finasteride 5 mg PO DAILY 06/11/18 nitroglycerin 0.4 mg SUBLINGUAL Q5M PRN #30 tablet 07/22/18 albuterol sulfate 1 - 2 puff INHALATION 4X/DAY PRN PRN 04/08/20 tamsulosin 0.4 mg PO QHS #30 cap 04/10/20 pantoprazole 40 mg PO BID 05/18/20 acetaminophen [Tylenol] 325 mg PO Q6H PRN PRN 06/22/20 carvedilol 25 mg PO BID 06/22/20 furosemide 40 mg PO DAILY 06/22/20 multivitamin 1 tab PO DAILY 06/22/20 potassium chloride [Klor-Con M20] 20 meq PO DAILY 06/22/20 ranolazine 500 mg PO BID 06/22/20 tiotropium bromide 2 puff INHALATION DAILY 06/22/20 ferrous sulfate 325 mg PO BID #60 tab 06/23/20 prednisone See Taper PO DAILY #30 tab 06/23/20 ABG / Lab / Microbiology Data Result Diagrams: 06/23/20 07:22 06/23/20 07:22 Discharge Plan Admission Admit Date/Time: 06/22/20 16:51 Attending Provider: Lamar Brown Primary Care Provider[facility] Discharge Orders/Prescriptions Prescriptions: New prednisone 10 mg tablet See Taper mg PO DAILY Qty: 30 RF: 0 ferrous sulfate 325 mg (65 mg iron) tablet 325 mg PO BID Qty: 60 RF: 0 Continued atorvastatin 80 MG tablet 80 mg PO QHS RF: 0 clopidogrel 75 MG tablet 75 mg PO DAILY RF: 0 aspirin 81 MG tablet 81 mg PO DAILY@0800 RF: 0 finasteride 5 MG tablet 5 mg PO DAILY RF: 0 escitalopram oxalate 10 MG tablet 10 mg PO DAILY RF: 0 cholecalciferol (vitamin D3) [Vitamin D3] 1,000 UNIT tablet 3,000 units PO DAILY RF: 0 Humulin R U-500 (Conc) Kwikpen 500 UNIT/ML insulin pen 120 unit SQ BREAKFAST RF: 0 Humulin R U-500 (Conc) Kwikpen 500 UNIT/ML insulin pen 120 unit SQ DINNER RF: 0 nitroglycerin 0.4 MG tablet, sublingual 0.4 mg sublingual Q5M PRN (Reason: Chest Pain) Qty: 30 RF: 0 albuterol sulfate 1 INHALER inhaler 1 - 2 puff INHALATION 4X/DAY PRN PRN (Reason: Sob &/Or Wheezing) RF: 0 tamsulosin 0.4 MG capsule 0.4 mg PO QHS Qty: 30 RF: 0 pantoprazole 40 MG tablet 40 mg PO BID RF: 0 tiotropium bromide 2.5 mcg/actuation Mist 2 puff INHALATION DAILY RF: 0 carvedilol 25 MG tablet 25 mg PO BID RF: 0 multivitamin Tablet 1 tab PO DAILY RF: 0 furosemide 40 mg Tablet 40 mg PO DAILY RF: 0 potassium chloride [Klor-Con M20] 20 mEq Tablet,Er Particles/Crystals 20 meq PO DAILY RF: 0 ranolazine 500 mg Tablet Extended Release 12 Hr 500 mg PO BID RF: 0 acetaminophen [Tylenol] 325 MG tablet 325 mg PO Q6H PRN PRN (Reason: Mild pain 1-3/Temp > 100.7 F) RF: 0 Referrals / Follow Up: William Alvarado MD [STAFF PHYSICIAN] - [facility] Week [facility] [Primary Care Provider] - In 1 Week Disposition Disposition (needs filled in before D/C Order can be placed): Home Health Service
[2020-06-23 11:36] LABS: Bedside Glucose 292 mg/dL (70-110)
--- NOTE | 2020-06-23 14:49 | CASEMGMT ---
Readmission chart review: Pt has had multiple readmissions this year and per [facility], pt is non-compliant with oxygen at home and declines for HHC therapy to come to home. Pt was admitted 05/30-06/01/20 for Dyspnea and sent home with NAWAF with HHC and on his normal continuous home oxygen. Pt returned to [facility] ED on 06/22/20 for SOB, cough. Pt admitted for COPD, SOB, anemia(pt has chronic anemia). Pt's home order for oxygen is 2L continuous per previous note. This am pt was back on 2L at rest and only needed 2L with ambulation as well. [facility]'s palliative physician was set to see pt after discharge the last time. Pt home with NAWAF [facility] and no need for increased oxygen at this time. Brent updated on all, voices understanding. Obdulia BERRY CM
[2020-06-25 13:25] LABS: Pathologist Review Reviewed
--- NOTE | 2020-06-25 14:10 | CASEMGMT ---
Addendum entered by Vida Karimi 06/26/20 13:09: This RKISTI GERONIMO was going to attempt to call pt again for f/u phone call but pt returned to [facility] ED at 1141 this am. Unable to complete CM F/U phone call at this time. Obdulia BERRY CM Original Note: RN CM Discharge F/U Phone Call LACE: 13 Strata: 3 Discharge date: 06/23/20 Call date: 06/25/20 Call time: 1410 Attempted to reach pt without success, unable to leave message as pt's voicemail box has not been set up yet. Pt did have a resumption of his HHC at discharge. CM to attempt again tomorrow. Obdulia BERRY CM Admission dx: COPD/SOB/Anemia
== END 2020-06-23 13:24 | disposition home health service (06) | DRG 189 ==
LOC: ED 16:51 → PCU 17:59
PROVIDERS: Admitting Provider Family Medicine; Emergency Provider Emergency Medicine; Visit Provider Family Medicine
DX: J96.21 Acute and chronic respiratory failure with hypoxia (principal); J44.1 Chronic obstructive pulmonary disease with (acute) exacerbation; I50.32 Chronic diastolic (congestive) heart failure; D50.9 Iron deficiency anemia, unspecified; D64.9 Anemia, unspecified; E11.9 Type 2 diabetes mellitus without complications; E66.9 Obesity, unspecified; Z68.34 Body mass index [BMI] 34.0-34.9, adult; I25.119 Atherosclerotic heart disease of native coronary artery with unspecified angina pectoris; E78.5 Hyperlipidemia, unspecified; F32.9 Major depressive disorder, single episode, unspecified; F41.9 Anxiety disorder, unspecified; G40.909 Epilepsy, unspecified, not intractable, without status epilepticus; G47.33 Obstructive sleep apnea (adult) (pediatric); I11.0 Hypertensive heart disease with heart failure; I69.320 Aphasia following cerebral infarction; N40.0 Benign prostatic hyperplasia without lower urinary tract symptoms; Z79.4 Long term (current) use of insulin; Z79.82 Long term (current) use of aspirin; Z95.1 Presence of aortocoronary bypass graft; Z95.0 Presence of cardiac pacemaker; Z87.01 Personal history of pneumonia (recurrent); Z79.02 Long term (current) use of antithrombotics/antiplatelets; Z79.899 Other long term (current) drug therapy; Z87.891 Personal history of nicotine dependence; Z97.4 Presence of external hearing-aid
CPT/HCPCS: 31720; 36415; 71045; 80048; 80053; 81001; 82274; 82728; 82962; 83540; 83550; 83605; 83880; 84484; 85025; 85610; 85730; 86850; 86900; 86901; 86920; 86921; 86922; 87040; 87086; 87088; 87426; 93005; 94640; 99282; J7040; P9016; A4216; J1940

== ENCOUNTER 2020-06-26 11:40 | Emergency (ER) | payer OTHER, SELFPAY ==
[2020-06-22 18:20] VITALS: BMI 34.3
[2020-06-26] VITALS (8 sets, daily range): BP systolic 146–162; BP diastolic 63–81; PULSE 66–80; RESP 16–20; TEMP 35.4–36.6; O2SAT 96–97; BMI 34.4
--- NOTE | 2020-06-26 12:03 | EKG12_ITS ---
Test Reason : SOB Blood Pressure : / mmHG Vent. Rate : 074 BPM Atrial Rate : 258 BPM P-R Int : 000 ms QRS Dur : 120 ms QT Int : 440 ms P-R-T Axes : 000 -25 060 degrees QTc Int : 488 ms Sinus Vs Ectopic Atrial Rhythm Non-specific intra-ventricular conduction delay Nonspecific T wave abnormality Abnormal ECG Confirmed by YUNI GUALLPA, JOANNA ([id number]), video effects editor NADINE FERRER ([id number]) on 06/28/2020 1:56:10 PM Referred By: HERSON Confirmed By:JOANNA MORRISSEY MD
--- NOTE | 2020-06-26 12:03 | RAD_ITS ---
STUDY: X-RAY CHEST REASON FOR EXAM: Male, 70 years old. Cough, dyspnea on exertion, hypoxia TECHNIQUE: PA and lateral views of the chest. COMPARISON: Comparison is made with prior examination 06/22/2020. FINDINGS: EKG electrodes are seen. Hyperinflation. Stable increased pleural-parenchymal markings in the left hemithorax with evidence of multiple ORIF of the left rib fractures. There is blunting of the cause for the angles posteriorly. Sternal cerclage wires and vascular clips are present from a prior sternotomy and coronary artery bypass graft procedure (CABG). Moderate cardiomegaly. Normal mediastinum and cata. Normal visualized pulmonary arteries. There is atherosclerotic calcification of the aortic arch with tortuosity. There are diffuse degenerative changes of the visualized thoracic spine. Normal visualized ribs, clavicles, and shoulders. There is no demonstrated abnormality of the visualized soft tissue structures of the upper abdomen. RAD/Chest PA and Lateral IMPRESSION: Stable examination with pleural-parenchymal changes in the left hemithorax. Electronically Signed: Mick García MD at 13:38 EDT , Service support ,
--- NOTE | 2020-06-26 12:05 | ED.VIS.DYS ---
HPI History of Present Illness Chief Complaint: Shortness of Breath Informant: patient and spouse/S.O. Onset/Context/Timing Onset: Yesterday Context: activity on onset and exertion Timing: Intermittent Quality: Positive for Dyspnea on exertion and Wheezing; Negative for Orthopnea and PND Current Severity: Mild Maximum Severity: Severe Worsened by: Exertion Relieved by: Rest Associated Symptoms cough; Negative for rhinorrhea, post nasal drip, ear pain, fever, sore throat, subjective, chills, sweats, white sputum, yellow sputum or green sputum Chest Pain: Positive for None Narrative Narrative: Patient is an elderly male with history of chronic respiratory failure on oxygen who also has history of obstructive sleep apnea and COPD. He presents because of rattling in his chest, wheezing, drop in pulse ox with walking and nonproductive cough. He apparently was seen on Thursday. He denies fever or chills. He denies exposure to anyone with Covid. He denies loss of taste. He states he has no smell has not had smell for years. He denies ocular, visual or auditory symptoms. His states his voice is raspy. He denies difficulty swallowing. He denies swelling of his lips tongue or throat. He denies chest discomfort. He denies abdominal pain, nausea, vomiting or diarrhea. He denies urologic symptoms. PE Risk Factors: Negative for Cancer, OCP + Smoking + > 35, Prior DVT or PE, Recent immobilization, Recent surgery and Recent travel Prior similar symptoms: Yes Recent Illness/Hospitalization: Yes PFSH PFS Medical History Abnormal EKG Anemia Atherosclerotic heart disease [place] coronary artery w/angina pectoris Chronic respiratory failure Diabetes Essential (primary) hypertension History of fractured rib Hyperlipidemia Obesity EKATERINA (obstructive sleep apnea) Stroke/cerebrovascular accident Wears hearing aid in both ears Home Medications Humulin R U-500 (Conc) Kwikpen 120 unit SQ BREAKFAST 06/11/18 [History Last Taken 06/22/20] Humulin R U-500 (Conc) Kwikpen 120 unit SQ DINNER 06/11/18 [History Last Taken 06/21/20] aspirin 81 mg PO DAILY@0800 06/11/18 [History Last Taken 06/22/20] atorvastatin 80 mg PO QHS 06/11/18 [History Last Taken 06/21/20] cholecalciferol (vitamin D3) [Vitamin D3] 3,000 units PO DAILY 06/11/18 [History Last Taken 06/22/20] clopidogrel 75 mg PO DAILY 06/11/18 [History Last Taken 06/22/20] escitalopram oxalate 10 mg PO DAILY 06/11/18 [History Last Taken 06/22/20] finasteride 5 mg PO DAILY 06/11/18 [History Last Taken 06/22/20] nitroglycerin 0.4 mg SUBLINGUAL Q5M PRN #30 tablet 07/22/18 [Rx Last Taken 01/17/20] albuterol sulfate 1 - 2 puff INHALATION 4X/DAY PRN PRN 04/08/20 [History Last Taken Unknown] tamsulosin 0.4 mg PO QHS #30 cap 04/10/20 [Rx Last Taken 06/21/20] pantoprazole 40 mg PO BID 05/18/20 [History Last Taken 06/22/20] acetaminophen [Tylenol] 325 mg PO Q6H PRN PRN 06/22/20 [History Last Taken 1 Week Ago ~06/15/20] carvedilol 25 mg PO BID 06/22/20 [History Last Taken 06/22/20] furosemide 40 mg PO DAILY 06/22/20 [History Last Taken 06/22/20] multivitamin 1 tab PO DAILY 06/22/20 [History Last Taken 06/22/20] potassium chloride [Klor-Con M20] 20 meq PO DAILY 06/22/20 [History Last Taken 06/22/20] ranolazine 500 mg PO BID 06/22/20 [History Last Taken 06/22/20] tiotropium bromide 2 puff INHALATION DAILY 06/22/20 [History Last Taken Unknown] ferrous sulfate 325 mg PO BID #60 tab 06/23/20 [Rx Last Taken Unknown] prednisone See Taper PO DAILY #30 tab 06/23/20 [Rx Last Taken Unknown] doxycycline monohydrate 100 mg PO BID #10 capsule 06/26/20 [Rx Last Taken Unknown] prednisone 60 mg PO DAILY #15 tablet 06/26/20 [Rx Last Taken Unknown] Allergy/AdvReac Type Severity Reaction Status Date / Time ezetimibe Allergy Unknown Verified 06/22/20 12:45 Fish Containing Products Allergy Unknown Verified 06/22/20 12:45 glyburide Allergy Unknown Verified 06/22/20 12:45 isosorbide Allergy PT UNSURE Verified 06/22/20 12:45 OF REACTION lisinopril Allergy Unknown Verified 06/22/20 12:45 metformin Allergy Nausea Verified 06/22/20 12:45 metoprolol Allergy Unknown Verified 06/22/20 12:45 simvastatin Allergy Unknown Verified 06/22/20 12:45 Family History Father No problems noted. Surgical History H/O coronary artery bypass surgery History of cholecystectomy History of coronary artery stent placement History of knee replacement procedure of left knee History of permanent cardiac pacemaker placement (09/10/11) Social History household members: spouse Smoking Status: Former smoker substance use type: does not use ROS ROS ED Constitutional Constitutional ED: Denies chills, fever(s), sweats or weight loss Eyes Eyes: Denies blurry vision or change in vision ENT ENT ED: Denies ear pain, rhinorrhea or sore throat Cardiovascular Cardiovascular: Denies chest pain, orthopnea, palpitations or paroxysmal nocturnal dyspnea Respiratory/Chest Respiratory/Chest: Reports cough, dyspnea, dyspnea on exertion and other Details: Drop in pulse ox with walking ; Denies orthopnea, paroxysmal nocturnal dyspnea or sputum Gastrointestinal Gastrointestinal: Denies abdominal pain, diarrhea, nausea or vomiting Genitourinary Genitourinary ED: Denies dysuria, hematuria or urinary frequency Musculoskeletal Musculoskeletal: Denies arthralgias or myalgias Integumentary Denies Abrasions or rash Neurologic Neurologic: Reports weakness; Denies headache(s) or paresthesias Endocrine Endocrinology: Denies polydipsia or polyuria Hematologic/Lymphatic Hematologic/Lymphatic: Denies easy bruising Allergic/Immunologic Allergic/Immunologic ED: Denies mouth swelling, tongue swelling or urticaria EXAM Physical Exam Const Vital Signs: 06/26/20 11:41 06/26/20 11:44 06/26/20 12:14 Temperature 95.7 F L 95.7 F L Temperature Source Temporal Temporal Pulse Rate 78 78 80 Respiratory Rate 17 17 20 H Respiratory Effort Short of Breath Blood Pressure 162/76 H 162/76 H Blood Pressure Mean 104 104 Pulse Ox 96 96 96 Oxygen Delivery Method Nasal Cannula Nasal Cannula Nasal Cannula Oxygen Flow Rate (L/min) 3 3 3 06/26/20 12:43 06/26/20 12:44 Temperature 97.9 F Temperature Source Temporal Pulse Rate 71 Respiratory Rate 20 H Respiratory Effort Short of Breath Blood Pressure 146/63 H Blood Pressure Mean 90 Pulse Ox 96 Oxygen Delivery Method Nasal Cannula Nasal Cannula Oxygen Flow Rate (L/min) 3 3 Positive well nourished, well developed, obese and unkempt General Appearance ED: unkempt and well developed Nutritional Appearance: obese HEENT Reports TM's clear, moist mucous membranes and other Uvula is midline. There is no angioedema. Trachea is midline. There is no inspiratory expiratory stridor. atraumatic Tympanic Membrane ED: Yes TM's clear Eyes PERRL and EOMs intact bilaterally General Eye ED: Negative for pale conjunctiva or scleral icterus Neck no lymphadenopathy, supple, no meningeal signs and no JVD General: Negative for tenderness Resp No normal respiratory effort and No clear to auscultation bilaterally Effort and Inspection: other Scattered bilaterally Auscultation: rales and wheezes expiratory wheezes, posterior and throughout Cardio regular rate, regular rhythm, S1 normal heart sound, S2 normal heart sound and no murmurs GI non-tender, non-distended and no masses Auscultation: normoactive bowel sounds Palpation: soft Back/Spine no CVA tenderness and normal to inspection Extremity Negative for normal to inspection Extremity Narrative: Minimal pitting edema of the feet and ankles. General Extremety ED: Yes edema General Extremity: edema Neuro oriented x3, CN's II-XII intact bilaterally and no sensory deficits noted Sensorium / Orientation: alert, oriented to person and oriented to place Motor Exam: strength 5/5 throughout and general weakness Psych mental status grossly normal Appearance: unkempt Thought Process: normal thought process Skin Lesions: no lesions Rashes: no rashes MDM MDM MDM Narrative Medical decision making narrative: Will review prior records. Chest x-ray was obtained to rule out pneumonia and pneumothorax. Blood work to rule out anemia since he had a recent transfusion. Electrolyte panel to assess renal function and glucose. He was treated with prednisone, DuoNeb and albuterol aerosol treatments. Lab Data Attestation: I reviewed the patient's lab results. Labs: Laboratory Results - last 24 hr 06/26/20 06/26/20 06/26/20 12:30 12:30 12:30 WBC 7.5 RBC 4.08 L Hgb 9.3 L Hct 32.7 L MCV 80.1 MCH 22.8 L MCHC 28.4 L RDW Std Deviation 52.0 H RDW Coeff of Cinda 17.8 H Plt Count 181 MPV 10.6 Immature Gran % (Auto) 0.300 Neut % (Auto) 77.2 H Lymph % (Auto) 14.1 L [place] % (Auto) 8.0 Eos % (Auto) 0.4 Baso % (Auto) 0.0 Absolute Neuts (auto) 5.8 Absolute Lymphs (auto) 1.05 Nucleated RBC % 0 Sodium 138 Potassium 3.2 L Chloride 100 Carbon Dioxide 35.0 H Anion Gap 3 L BUN 21 H Creatinine 0.82 Estim Creat Clear Calc 86.55 Est GFR (MDRD) Af Amer 120 Est GFR (MDRD) Non-Af 99 BUN/Creatinine Ratio 25.7 H Glucose 287 H Lactic Acid 2.3 H* Calcium 7.8 L White count is unremarkable. Patient is anemic. The hemoglobin is higher than prior. He was recently transfused. Basic metabolic panel is remarkable for glucose of 287 with normal CO2 and anion gap. Lactate elevated 2.3 which may be due to hypoxia or increased albuterol use. Radiography Chest X-Ray - ED: 2 View, Unchanged, Heart, No Acute Disease, Chronic Changes and - (Patient has hardware noted. He has had fractured ribs which required repair. Heart size is borderline cardiomegaly. There is chronic pulmonary changes noted.) Diagnostic Testing: Radiology Impression Chest X-Ray 06/26/20 12:03 IMPRESSION: Stable examination with pleural-parenchymal changes in the left hemithorax. Electronically Signed: Mick García MD at 13:38 EDT , Service support , Treatment and Re-Evaluation Comments:: Patient was reassessed at 02/20/2004. He is no longer wheezing. He reports he feels better. Plan is to discharge to home with prescription for prednisone and doxycycline and treat for exacerbation of COPD. Discharge Plan Triage Chief Complaint: Shortness of Breath ED Provider: Yadiel Guzman Dx/Rx/DC Orders Clinical Impression: Acute exacerbation of chronic obstructive pulmonary disease (COPD), Acidosis, lactic Instructions: ED COPD Flare Prescriptions: New prednisone 20 MG tablet 60 mg PO DAILY Qty: 15 RF: 0 doxycycline monohydrate 100 MG capsule 100 mg PO BID Qty: 10 RF: 0 No Action atorvastatin 80 MG tablet 80 mg PO QHS RF: 0 clopidogrel 75 MG tablet 75 mg PO DAILY RF: 0 aspirin 81 MG tablet 81 mg PO DAILY@0800 RF: 0 finasteride 5 MG tablet 5 mg PO DAILY RF: 0 escitalopram oxalate 10 MG tablet 10 mg PO DAILY RF: 0 cholecalciferol (vitamin D3) [Vitamin D3] 1,000 UNIT tablet 3,000 units PO DAILY RF: 0 Humulin R U-500 (Conc) Kwikpen 500 UNIT/ML insulin pen 120 unit SQ BREAKFAST RF: 0 Humulin R U-500 (Conc) Kwikpen 500 UNIT/ML insulin pen 120 unit SQ DINNER RF: 0 nitroglycerin 0.4 MG tablet, sublingual 0.4 mg sublingual Q5M PRN (Reason: Chest Pain) Qty: 30 RF: 0 albuterol sulfate 1 INHALER inhaler 1 - 2 puff INHALATION 4X/DAY PRN PRN (Reason: Sob &/Or Wheezing) RF: 0 tamsulosin 0.4 MG capsule 0.4 mg PO QHS Qty: 30 RF: 0 pantoprazole 40 MG tablet 40 mg PO BID RF: 0 tiotropium bromide 2.5 mcg/actuation Mist 2 puff INHALATION DAILY RF: 0 carvedilol 25 MG tablet 25 mg PO BID RF: 0 multivitamin Tablet 1 tab PO DAILY RF: 0 furosemide 40 mg Tablet 40 mg PO DAILY RF: 0 potassium chloride [Klor-Con M20] 20 mEq Tablet,Er Particles/Crystals 20 meq PO DAILY RF: 0 ranolazine 500 mg Tablet Extended Release 12 Hr 500 mg PO BID RF: 0 acetaminophen [Tylenol] 325 MG tablet 325 mg PO Q6H PRN PRN (Reason: Mild pain 1-3/Temp > 100.7 F) RF: 0 prednisone 10 mg tablet See Taper mg PO DAILY Qty: 30 RF: 0 ferrous sulfate 325 mg (65 mg iron) tablet 325 mg PO BID Qty: 60 RF: 0 [facility] [Primary [facility] Provider] - 3-5 Days if not improving Disposition Disposition: Home, self care
[2020-06-26] MEDS: Ipratropium/Albuterol Sulfate 3 ML AMPUL.NEB INHALATION (12:14)
[2020-06-26] MEDS: Albuterol 2.5 MG/3 ML VIAL.NEB. INHALATION ×3 (12:17→13:55)
[2020-06-26] MEDS: predniSONE 20 MG Tablet 60 MG PO (12:39)
[2020-06-26 12:41] LABS: Absolute Lymphocyte Count 1.05 X10^3/uL (0.83-4.51); Absolute Neutrophil Count 5.8 X10^3/uL (2.0-7.7); Eosinophil# 0.03 X10^3/uL; Eosinophils% 0.4 % (0-5); Hematocrit 32.7 % (40-54); Hemoglobin 9.3 g/dL (13.0-16.5); Lymphocyte # 1.05 X10^3/ul (0.83-4.51); Lymphocyte % 14.1 % (19-41); Mean Corp Hgb Conc 28.4 g/dL (32-36); Mean Corpuscular Hgb 22.8 pg (27.0-32.0); Mean Corpuscular Volume 80.1 fL (80-94); Mean Platelet Vol. 10.6 fl (6.2-12.0); NRBC Flagged by Analyzer 0 % (0-5); Neutrophil # 5.76 X10^3/uL (2.7-7.7); Neutrophil % 77.2 % (47-70); Platelet Count 181 K/mm3 (150-450); RBC Distribution Width CV 17.8 % (11.6-14.6); Red Blood Count 4.08 M/mm3 (4.6-6.2); White Blood Count 7.5 K/mm3 (4.4-11.0)
[2020-06-26 12:51] LABS: Anion Gap 3 (5-15); BUN 21 mg/dL (7-18); BUN/Creat Ratio 25.7 RATIO (10-20); Calcium,Total 7.8 mg/dL (8.5-10.1); Chloride 100 mmol/L (98-107); Creatinine, Serum 0.82 mg/dL (0.70-1.30); EST Glomerular Filtration Rate 99 mL/min (>60); Est Glom Filt Rate - Afr Amer 120 mL/min (>60); Estimated Creatinine Clearance 86.55 ml/min; Glucose 287 mg/dL (74-106); Potassium 3.2 mmol/L (3.5-5.1); Sodium Level 138 mmol/L (136-145)
[2020-06-26 13:21] LABS: Lactic Acid 2.3 mmol/L (0.4-1.9)
[2020-06-26] MEDS: Morphine 4 MG/ML Syringe IV (14:01)
[2020-06-26] MEDS: Ondansetron ODT 4 MG Tablet PO (14:01)
[2020-06-26 16:38] LABS: Reflex Lactate? Y
== END 2020-06-26 14:42 | disposition home or self-care (01) ==
PROVIDERS: Emergency Provider Emergency Medicine
DX: J44.1 Chronic obstructive pulmonary disease with (acute) exacerbation (principal); E66.9 Obesity, unspecified; I25.119 Atherosclerotic heart disease of native coronary artery with unspecified angina pectoris; Z99.81 Dependence on supplemental oxygen; Z87.891 Personal history of nicotine dependence
CPT/HCPCS: 71046; 80048; 83605; 85025; 93005; 94640; 96374; 99251; 99284; G0463

== ENCOUNTER 2020-07-05 14:55 | Observation (INO) | payer OTHER, MEDICARE, SELFPAY ==
[2020-06-26 11:41] VITALS: BMI 34.4
[2020-07-05] VITALS (16 sets, daily range): BP systolic 116–141; BP diastolic 53–72; PULSE 63–76; RESP 14–24; TEMP 36.6–36.9; O2SAT 94–99; BMI 34.4; BMI 34.2
--- NOTE | 2020-07-05 15:12 | EKG12_ITS ---
Test Reason : SOB Blood Pressure : / mmHG Vent. Rate : 063 BPM Atrial Rate : 063 BPM P-R Int : 180 ms QRS Dur : 116 ms QT Int : 452 ms P-R-T Axes : 079 -38 087 degrees QTc Int : 462 ms Sinus rhythm with Premature supraventricular complexes Left axis deviation Nonspecific ST and T wave abnormality Prolonged QT Abnormal ECG Confirmed by BRYN GUALLPA, JULIO C ([id number]), image editor NADINE FERRER ([id number]) on 07/10/2020 10:01:36 A M Referred By: OZZIE/TAMMY Confirmed By:BELEN CLEMENTE MD
--- NOTE | 2020-07-05 15:14 | ED.VIS.DYS ---
HPI History of Present Illness Chief Complaint: Shortness of Breath Detail of Chief Complaint: Increasing shortness of breath and chest pain for about a week Informant: patient Onset/Context/Timing Timing: Intermittent Current Severity: 5/10 Associated Symptoms cough; Negative for green sputum Chest Pain: Positive for Intermittent and Dull Narrative Narrative: Patient presents to the emergency department complaining of feeling increasingly short of breath over the last week. Patient's had a cough but it is nonproductive. Patient also states that over the last several days he has been having chest discomfort intermittently that he does arrives as a dull discomfort across both sides of his chest. Patient denies recent travel or surgery. Has had no fever. Patient does have history of coronary artery disease, COPD, and CHF. Patient is on 3 L of O2 chronically. Patient states that over the last several days he is passed out about 3 times. Patient states that he can come on at any time while sitting or standing. He denies any injuries from his syncopal episodes. Patient has had issues with syncope in the past. Prior similar symptoms: Yes PFSH PFSH Medical History Abnormal EKG Anemia Atherosclerotic heart disease [place] coronary artery w/angina pectoris Chronic respiratory failure Diabetes Essential (primary) hypertension History of fractured rib Hyperlipidemia Obesity EKATERINA (obstructive sleep apnea) Stroke/cerebrovascular accident Wears hearing aid in both ears Home Medications Humulin R U-500 (Conc) Kwikpen 120 unit SQ BREAKFAST 06/11/18 [History Last Taken 06/22/20] Humulin R U-500 (Conc) Kwikpen 120 unit SQ DINNER 06/11/18 [History Last Taken 06/21/20] aspirin 81 mg PO DAILY@0800 06/11/18 [History Last Taken 06/22/20] atorvastatin 80 mg PO QHS 06/11/18 [History Last Taken 06/21/20] cholecalciferol (vitamin D3) [Vitamin D3] 3,000 units PO DAILY 06/11/18 [History Last Taken 06/22/20] clopidogrel 75 mg PO DAILY 06/11/18 [History Last Taken 06/22/20] escitalopram oxalate 10 mg PO DAILY 06/11/18 [History Last Taken 06/22/20] finasteride 5 mg PO DAILY 06/11/18 [History Last Taken 06/22/20] nitroglycerin 0.4 mg SUBLINGUAL Q5M PRN #30 tablet 07/22/18 [Rx Last Taken 01/17/20] albuterol sulfate 1 - 2 puff INHALATION 4X/DAY PRN PRN 04/08/20 [History Last Taken Unknown] tamsulosin 0.4 mg PO QHS #30 cap 04/10/20 [Rx Last Taken 06/21/20] pantoprazole 40 mg PO BID 05/18/20 [History Last Taken 06/22/20] acetaminophen [Tylenol] 325 mg PO Q6H PRN PRN 06/22/20 [History Last Taken 1 Week Ago ~06/15/20] carvedilol 25 mg PO BID 06/22/20 [History Last Taken 06/22/20] furosemide 40 mg PO DAILY 06/22/20 [History Last Taken 06/22/20] multivitamin 1 tab PO DAILY 06/22/20 [History Last Taken 06/22/20] potassium chloride [Klor-Con M20] 20 meq PO DAILY 06/22/20 [History Last Taken 06/22/20] ranolazine 500 mg PO BID 06/22/20 [History Last Taken 06/22/20] tiotropium bromide 2 puff INHALATION DAILY 06/22/20 [History Last Taken Unknown] ferrous sulfate 325 mg PO BID #60 tab 06/23/20 [Rx Last Taken Unknown] prednisone See Taper PO DAILY #30 tab 06/23/20 [Rx Last Taken Unknown] doxycycline monohydrate 100 mg PO BID #10 capsule 06/26/20 [Rx Last Taken Unknown] prednisone 60 mg PO DAILY #15 tablet 06/26/20 [Rx Last Taken Unknown] Allergy/AdvReac Type Severity Reaction Status Date / Time ezetimibe Allergy Unknown Verified 07/05/20 14:58 Fish Containing Products Allergy Unknown Verified 07/05/20 14:58 glyburide Allergy Unknown Verified 07/05/20 14:58 isosorbide Allergy PT UNSURE Verified 07/05/20 14:58 OF REACTION lisinopril Allergy Unknown Verified 07/05/20 14:58 metformin Allergy Nausea Verified 07/05/20 14:58 metoprolol Allergy Unknown Verified 07/05/20 14:58 simvastatin Allergy Unknown Verified 07/05/20 14:58 Family History Father No problems noted. Surgical History H/O coronary artery bypass surgery History of cholecystectomy History of coronary artery stent placement History of knee replacement procedure of left knee History of permanent cardiac pacemaker placement (09/10/11) Social History household members: spouse Smoking Status: Former smoker substance use type: does not use ROS ROS ED Constitutional Constitutional ED: Reports systems reviewed and no addt'l complaints, except as documented; Denies body ache(s), change in weight or chills Eyes Eyes: Denies acute decrease in peripheral vision, change in vision, double vision or loss of vision ENT ENT ED: Reports none; Denies ear pain, lip swelling, loss taste/smell, neck pain, otalgia or sore throat Cardiovascular Cardiovascular: Reports none and chest pain; Denies abdominal pain, chest pain with activity, leg edema, lightheadedness, palpitations, rapid heart rate or syncope Respiratory/Chest Respiratory/Chest: Reports none, cough, dyspnea and dyspnea on exertion; Denies change in mental status, dry cough, hemoptysis, shortness of breath at rest, shortness of breath with exertion or sputum Gastrointestinal Gastrointestinal: Reports none; Denies abdominal pain, change in stool character, diarrhea, hematemesis, hematochezia, melena, rectal bleeding or vomiting Genitourinary Genitourinary ED: Reports none; Denies abdominal discomfort, anuria, dysuria, genital pain or polyuria Musculoskeletal Musculoskeletal: Reports none; Denies arthralgias, back pain, difficulty walking, extremity pain, muscle weakness or myalgias Integumentary Reports none; Denies abscess or rash Neurologic Neurologic: Reports none; Denies abnormal gait, confusion, focal weakness, frequent falls, headache(s), loss of vision, numbness, paresthesias, radicular pain, vertigo or weakness Psychiatric Psychiatric: Reports systems reviewed and no addt'l complaints, except as documented and none; Denies behavioral changes, confusion, difficulty concentrating, hallucinations, suicidal ideation, tactile hallucinations or visual hallucinations Endocrine Endocrinology: Denies none, cold intolerance, excessive sweating, fatigue or heat intolerance Hematologic/Lymphatic Hematologic/Lymphatic: Reports none; Denies anemia, easy bleeding or easy bruising Allergic/Immunologic Allergic/Immunologic ED: Denies as per HPI, none, lip swelling, mouth swelling, throat swelling, tongue swelling or hives EXAM Physical Exam Const Vital Signs: 07/05/20 14:56 07/05/20 15:27 07/05/20 15:48 Temperature 97.9 F 97.9 F Temperature Source Temporal Temporal Pulse Rate 64 65 75 Respiratory Rate 17 24 H Respiratory Effort Short of Breath Respiratory Pattern Tachypnea Blood Pressure 135/71 H 126/57 H 130/61 H Blood Pressure Mean 92 80 Pulse Ox 98 94 Oxygen Delivery Method Nasal Cannula Nasal Cannula Oxygen Flow Rate (L/min) 3 3 07/05/20 16:02 Temperature Temperature Source Pulse Rate 76 Respiratory Rate Respiratory Effort Respiratory Pattern Blood Pressure 126/61 H Blood Pressure Mean Pulse Ox Oxygen Delivery Method Oxygen Flow Rate (L/min) Positive well nourished and well developed General Appearance ED: well developed and NAD HEENT Reports TM's clear and moist mucous membranes normocephalic and atraumatic; Negative for trauma or tenderness Tympanic Membrane ED: Yes TM's clear Eyes PERRL and EOMs intact bilaterally General Eye ED: Negative for pale conjunctiva or scleral icterus Neck no lymphadenopathy, supple and no JVD General: Negative for tenderness Chest Wall inspection of chest normal and palpation of chest normal Chest: Negative for tenderness Resp normal respiratory effort and No clear to auscultation bilaterally Effort and Inspection: Negative for respiratory distress or pain with movement Auscultation: wheezes and diminished lung sounds right and left; Negative for rhonchi Cardio regular rate, regular rhythm, S1 normal heart sound and S2 normal heart sound Cardio Narrative: Patient has a 2 out of 6 systolic ejection murmur noted. Peripheral Pulses: pulses 2+ throughout GI normal to inspection, nondistended, normoactive bowel sounds, soft to palpation, non-tender, non-distended and no masses Back/Spine no CVA tenderness and no thoracic nor lumbar tenderness Extremity normal to inspection General Extremety ED: Negative for edema General Extremity: Negative for edema Neuro oriented x3, CN's II-XII intact bilaterally, no sensory deficits noted and gait normal Sensorium / Orientation: awake, alert, oriented to person, oriented to place and oriented to time Motor Exam: strength 5/5 throughout and strength abnormal Psych mental status grossly normal Skin no rashes or lesions noted and no wounds MDM MDM MDM Narrative Medical decision making narrative: Patient received nitroglycerin sublingual without any pain relief and then was given 4 mg of morphine IV. D-dimer was elevated but in looking back in the medical record he chronically has an elevated D-dimer and had a CTA of the chest about a month ago that was negative for PE. My suspicion for PE at this point is relatively low and I do not feel he needs any further imaging. Patient case was discussed with hospitalist will evaluate patient for admission for his chest pain of etiology unclear. Lab Data Attestation: I reviewed the patient's lab results. Labs: Laboratory Results - last 24 hr 07/05/20 07/05/20 07/05/20 15:22 15:22 15:22 WBC 6.9 RBC 4.26 L Hgb 10.2 L Hct 35.8 L MCV 84.0 MCH 23.9 L MCHC 28.5 L RDW Std Deviation 62.7 H RDW Coeff of Cinda 21.4 H Plt Count 170 MPV 10.6 Immature Gran % (Auto) 0.300 Neut % (Auto) 78.2 H Lymph % (Auto) 14.4 L Cotton % (Auto) 5.5 Eos % (Auto) 1.5 Baso % (Auto) 0.1 Absolute Neuts (auto) 5.4 Absolute Lymphs (auto) 0.99 Nucleated RBC % 0 Platelet Estimate ADEQUATE RBC Morphology N CHROM Hypochromasia RARE Anisocytosis 1+ Microcytosis RARE Ovalocytes RARE D-Dimer Quant (PE/DVT) 1.45 H* Sodium 140 Potassium 3.4 L Chloride 101 Carbon Dioxide 36.0 H Anion Gap 3 L BUN 14 Creatinine 0.87 Estim Creat Clear Calc 81.58 Est GFR (MDRD) Af Amer 112 Est GFR (MDRD) Non-Af 92 BUN/Creatinine Ratio 16.1 Glucose 173 H Calcium 8.1 L Troponin I 0.018 B-Natriuretic Peptide 07/05/20 15:22 WBC RBC Hgb Hct MCV MCH MCHC RDW Std Deviation RDW Coeff of Cinda Plt Count MPV Immature Gran % (Auto) Neut % (Auto) Lymph % (Auto) Cotton % (Auto) Eos % (Auto) Baso % (Auto) Absolute Neuts (auto) Absolute Lymphs (auto) Nucleated RBC % Platelet Estimate RBC Morphology Hypochromasia Anisocytosis Microcytosis Ovalocytes D-Dimer Quant (PE/DVT) Sodium Potassium Chloride Carbon Dioxide Anion Gap BUN Creatinine Estim Creat Clear Calc Est GFR (MDRD) Af Amer Est GFR (MDRD) Non-Af BUN/Creatinine Ratio Glucose Calcium Troponin I B-Natriuretic Peptide 84.5 Radiography Chest X-Ray - ED: 1 View Diagnostic Testing: Radiology Impression Chest X-Ray 07/05/20 15:40 IMPRESSION: Central pulmonary venous congestion. Stable pleural-parenchymal changes in the left hemithorax. Electronically Signed: Eric Martinez MD at 16:27 EDT Tel , Service support , 1 view chest x-ray interpreted by myself as chronic changes with some cardiomegaly. No infiltrates noted. No pneumothorax noted. Patient had old hardware along the left ribs. EKG Initial EKG: Interpretation: Sinus Rhythm Comments: Sinus rhythm with a ventricular rate of [address] changes noted and occasional PACs noted. Discharge Plan Triage Chief Complaint: Shortness of Breath ED Provider: Jaydon Armstrong Dx/Rx/DC Orders Clinical Impression: Chest pain, Syncope, Acute dyspnea Prescriptions: No Action atorvastatin 80 MG tablet 80 mg PO QHS RF: 0 clopidogrel 75 MG tablet 75 mg PO DAILY RF: 0 aspirin 81 MG tablet 81 mg PO DAILY@0800 RF: 0 finasteride 5 MG tablet 5 mg PO DAILY RF: 0 escitalopram oxalate 10 MG tablet 10 mg PO DAILY RF: 0 cholecalciferol (vitamin D3) [Vitamin D3] 1,000 UNIT tablet 3,000 units PO DAILY RF: 0 Humulin R U-500 (Conc) Kwikpen 500 UNIT/ML insulin pen 120 unit SQ BREAKFAST RF: 0 Humulin R U-500 (Conc) Kwikpen 500 UNIT/ML insulin pen 120 unit SQ DINNER RF: 0 nitroglycerin 0.4 MG tablet, sublingual 0.4 mg sublingual Q5M PRN (Reason: Chest Pain) Qty: 30 RF: 0 albuterol sulfate 1 INHALER inhaler 1 - 2 puff INHALATION 4X/DAY PRN PRN (Reason: Sob &/Or Wheezing) RF: 0 tamsulosin 0.4 MG capsule 0.4 mg PO QHS Qty: 30 RF: 0 pantoprazole 40 MG tablet 40 mg PO BID RF: 0 tiotropium bromide 2.5 mcg/actuation Mist 2 puff INHALATION DAILY RF: 0 carvedilol 25 MG tablet 25 mg PO BID RF: 0 multivitamin Tablet 1 tab PO DAILY RF: 0 furosemide 40 mg Tablet 40 mg PO DAILY RF: 0 potassium chloride [Klor-Con M20] 20 mEq Tablet,Er Particles/Crystals 20 meq PO DAILY RF: 0 ranolazine 500 mg Tablet Extended Release 12 Hr 500 mg PO BID RF: 0 acetaminophen [Tylenol] 325 MG tablet 325 mg PO Q6H PRN PRN (Reason: Mild pain 1-3/Temp > 100.7 F) RF: 0 prednisone 10 mg tablet See Taper mg PO DAILY Qty: 30 RF: 0 ferrous sulfate 325 mg (65 mg iron) tablet 325 mg PO BID Qty: 60 RF: 0 prednisone 20 MG tablet 60 mg PO DAILY Qty: 15 RF: 0 doxycycline monohydrate 100 MG capsule 100 mg PO BID Qty: 10 RF: 0 [facility] [Primary Care Provider] - Disposition Disposition: Acute Care Hospital [facility]
--- NOTE | 2020-07-05 15:40 | RAD_ITS ---
INDICATION: chest pain EXAMINATION/TECHNIQUE: X-RAY - XR Chest 1 View COMPARISON: 06/26/2020. FINDINGS: EKG electrodes are seen. Central pulmonary venous congestion. Stable increased pleural-parenchymal markings in the left hemithorax with evidence of multiple ORIF of the left rib fractures. Sternal cerclage wires and vascular clips are present from a prior sternotomy and coronary artery bypass graft procedure (CABG). Moderate cardiomegaly. Normal mediastinum and cata. Normal visualized pulmonary arteries. There is atherosclerotic calcification of the aortic arch with tortuosity. There are diffuse degenerative changes of the visualized thoracic spine. Normal visualized ribs, clavicles, and shoulders. There is no demonstrated abnormality of the visualized soft tissue structures of the upper abdomen. RAD/Chest 1 View (Portable) IMPRESSION: Central pulmonary venous congestion. Stable pleural-parenchymal changes in the left hemithorax. Electronically Signed: Eric Martinez MD at 16:27 EDT Tel , Service support ,
[2020-07-05 15:41] LABS: Absolute Lymphocyte Count 0.99 X10^3/uL (0.83-4.51); Absolute Neutrophil Count 5.4 X10^3/uL (2.0-7.7); Basophil# 0.01 X10^3/uL; Basophil% 0.1 % (0-1); Eosinophils% 1.5 % (0-5); Hematocrit 35.8 % (40-54); Hemoglobin 10.2 g/dL (13.0-16.5); Lymphocyte # 0.99 X10^3/ul (0.83-4.51); Lymphocyte % 14.4 % (19-41); Mean Corp Hgb Conc 28.5 g/dL (32-36); Mean Corpuscular Hgb 23.9 pg (27.0-32.0); Mean Platelet Vol. 10.6 fl (6.2-12.0); Monocyte# 0.38 X10^3/uL; Monocyte% 5.5 % (0-10); NRBC Flagged by Analyzer 0 % (0-5); Neutrophil # 5.37 X10^3/uL (2.7-7.7); Neutrophil % 78.2 % (47-70); POSITIVE MORPHOLOGY YES; Platelet Count 170 K/mm3 (150-450); RBC Distribution Width CV 21.4 % (11.6-14.6); RBC Distribution Width SD 62.7 fl (35.1-43.9); Red Blood Count 4.26 M/mm3 (4.6-6.2); White Blood Count 6.9 K/mm3 (4.4-11.0)
[2020-07-05] MEDS: Aspirin 81 MG TAB.CHEW 324 MG PO (15:46)
[2020-07-05] MEDS: 0.9% Normal Saline 1,000 ML 15 ML IV (15:47)
[2020-07-05] MEDS: Nitroglycerin SL (ED/IMG/CATH) 0.4 MG TABLET SL ×2 (15:48→16:02)
[2020-07-05 15:57] LABS: Differential Indicated SCAN CRITERIA MET
[2020-07-05 16:01] LABS: Anion Gap 3 (5-15); BUN 14 mg/dL (7-18); BUN/Creat Ratio 16.1 RATIO (10-20); Calcium,Total 8.1 mg/dL (8.5-10.1); Chloride 101 mmol/L (98-107); Creatinine, Serum 0.87 mg/dL (0.70-1.30); D-Dimer Quantitative (DVT/PE) 1.45 FEU/ug/m (0.27-0.49); EST Glomerular Filtration Rate 92 mL/min (>60); Est Glom Filt Rate - Afr Amer 112 mL/min (>60); Estimated Creatinine Clearance 81.58 ml/min; Glucose 173 mg/dL (74-106); Potassium 3.4 mmol/L (3.5-5.1); Sodium Level 140 mmol/L (136-145)
[2020-07-05 16:11] LABS: Anisocytosis 1+; Platelet Estimate ADEQUATE (ADEQ); Red Cell Morphology N CHROM NORMAL (NORM C&C)
[2020-07-05 16:12] LABS: Hypochromasia RARE; Microcytosis RARE; Ovalocyte RARE
[2020-07-05] MEDS: Morphine 4 MG/ML Syringe IV (16:14)
--- NOTE | 2020-07-05 16:24 | HP.PCM.HOS_ITS ---
[facility] - General General Date of Admission: 07/05/20 HPI Narrative GIOVANNY LEONARDO, is a 70 M who presents with a complaint of shortness of breath for 1 week and chest pain. Shortness of breath is worsened with exertion. He also complained of syncopal episode and said he would just be sitting and he would pass out. Patient was recently discharged from the hospital on 06/23/2020 after being admitted and managed for shortness of breath, which was thought to be due to acute on chronic hypoxic respiratory failure due to COPD exacerbation. Patient is very often in the hospital for these similar symptoms. He also complained of chest pain which he said was pressure-like and episodic that been going on for a few days. He admitted to orthopnea but denied any PND. His vitals in the ED showed blood pressure 126/61, pulse rate of 76 and respiratory rate of 24. He was saturating at 94% on 3 L of oxygen which is what he wears at home. CBC showed hemoglobin of 10.2 with WBC of 6.9 and platelets of 170. D- dimer was elevated at 1.45 and potassium was 3.4. BMP was otherwise unremarkable. He has been admitted to be managed for chest pain and Shortness of breath of unclear etiology. [facility] Medical History (Updated 07/05/20 @ 16:57 by Vida Nguyen) Abnormal EKG Anemia Atherosclerotic heart disease [place] coronary artery w/angina pectoris BiPAP (biphasic positive airway pressure) dependence Chronic respiratory failure Diabetes Essential (primary) hypertension History of fractured rib Hyperlipidemia Obesity EKATERINA (obstructive sleep apnea) Stroke/cerebrovascular accident Wears hearing aid in both ears Home Medications Humulin R U-500 (Conc) Kwikpen 120 unit SQ BREAKFAST 06/11/18 [History Last Taken 07/05/20] Humulin R U-500 (Conc) Kwikpen 120 unit SQ DINNER 06/11/18 [History Last Taken 07/04/20] aspirin 81 mg PO DAILY@0800 06/11/18 [History Last Taken 07/05/20] atorvastatin 80 mg PO QHS 06/11/18 [History Last Taken 07/04/20] cholecalciferol (vitamin D3) [Vitamin D3] 3,000 units PO DAILY 06/11/18 [History Last Taken 07/04/20] clopidogrel 75 mg PO DAILY 06/11/18 [History Last Taken 07/05/20] escitalopram oxalate 10 mg PO DAILY 06/11/18 [History Last Taken 07/05/20] finasteride 5 mg PO DAILY 06/11/18 [History Last Taken 07/05/20] nitroglycerin 0.4 mg SUBLINGUAL Q5M PRN #30 tablet 07/22/18 [Rx Last Taken 01/17/20] albuterol sulfate 1 - 2 puff INHALATION 4X/DAY PRN PRN 04/08/20 [History Last Taken 07/05/20] tamsulosin 0.4 mg PO QHS #30 cap 04/10/20 [Rx Last Taken 07/04/20] pantoprazole 40 mg PO BID 05/18/20 [History Last Taken 07/05/20] acetaminophen [Tylenol] 325 mg PO Q6H PRN PRN 06/22/20 [History Last Taken 07/05/20] carvedilol 25 mg PO BID 06/22/20 [History Last Taken 07/05/20] furosemide 40 mg PO DAILY 06/22/20 [History Last Taken 07/05/20] multivitamin 1 tab PO DAILY 06/22/20 [History Last Taken 07/04/20] potassium chloride [Klor-Con M20] 20 meq PO DAILY 06/22/20 [History Last Taken 07/05/20] ranolazine 500 mg PO BID 06/22/20 [History Last Taken 07/05/20] tiotropium bromide 2 puff INHALATION DAILY 06/22/20 [History Last Taken 07/05/20] ferrous sulfate 325 mg PO BID #60 tab 06/23/20 [Rx Last Taken 07/05/20] guaifenesin 100 - 200 mg PO TID PRN 07/05/20 [History Last Taken 07/04/20] Allergy/AdvReac Type Severity Reaction Status Date / Time ezetimibe Allergy Unknown Verified 07/05/20 14:58 Fish Containing Products Allergy Unknown Verified 07/05/20 14:58 glyburide Allergy Unknown Verified 07/05/20 14:58 isosorbide Allergy PT UNSURE Verified 07/05/20 14:58 OF REACTION lisinopril Allergy Unknown Verified 07/05/20 14:58 metformin Allergy Nausea Verified 07/05/20 14:58 metoprolol Allergy Unknown Verified 07/05/20 14:58 simvastatin Allergy Unknown Verified 07/05/20 14:58 Family History Father No problems noted. Surgical History (Updated 07/05/20 @ 16:57 by Vida Nguyen) H/O coronary artery bypass surgery History of cholecystectomy History of cholecystectomy History of coronary artery stent placement History of knee replacement procedure of left knee History of permanent cardiac pacemaker placement (09/10/11) Social History household members: spouse Smoking Status: Former smoker substance use type: does not use ROS Constitutional Constitutional: Reports malaise and weakness; Denies anorexia, change in weight, chills, fatigue, fever(s) or night sweats ENT HEENT: Denies headache(s), nasal congestion, nasal discharge or sore throat Cardiovascular Cardiovascular: Reports chest pain, dyspnea on exertion, lightheadedness, orthopnea and syncope; Denies edema, palpitations, paroxysmal nocturnal dyspnea or rapid heart rate Respiratory/Chest Respiratory/Chest: Reports dyspnea, shortness of breath at rest and shortness of breath with exertion; Denies cough, excessive phlegm production, hemoptysis, productive cough or wheezing Gastrointestinal Gastrointestinal: Denies abdominal pain, coffee ground emesis, constipation, diarrhea or dyspepsia Genitourinary Genitourinary: Denies burning urination, difficulty urinating or urinary frequency Musculoskeletal Musculoskeletal: Denies arthralgias, joint pain or joint stiffness Neurologic Neurologic: Reports syncope; Denies confusion, dizziness, focal weakness, sei zure-like activity or seizures Psychiatric Psychiatric: Denies anxiety or depression Vital Signs Vital Signs Vital Signs: 07/05/20 14:56 07/05/20 15:27 07/05/20 15:48 Temperature 97.9 F 97.9 F Temperature Source Temporal Temporal Pulse Rate 64 65 75 Respiratory Rate 17 24 H Respiratory Effort Short of Breath Respiratory Pattern Tachypnea Blood Pressure 135/71 H 126/57 H 130/61 H Blood Pressure Mean 92 80 Pulse Ox 98 94 Oxygen Delivery Method Nasal Cannula Nasal Cannula Oxygen Flow Rate (L/min) 3 3 07/05/20 16:02 Temperature Temperature Source Pulse Rate 76 Respiratory Rate Respiratory Effort Respiratory Pattern Blood Pressure 126/61 H Blood Pressure Mean Pulse Ox Oxygen Delivery Method Oxygen Flow Rate (L/min) Physical Exam Const alert, oriented x3 and no apparent distress General Appearance: cooperative HEENT normocephalic, head/scalp atraumatic, hearing grossly normal bilaterally and moist oral mucous membranes Eyes PERRL, EOMs intact bilaterally and conjunctivae normal Neck no lymphadenopathy, supple and no JVD Resp normal respiratory effort, no retractions, no use of accessory muscles and clear to auscultation bilaterally Cardio regular rate, regular rhythm, S1 normal heart sound, S2 normal heart sound and no murmurs GI normal to inspection, nondistended, normoactive bowel sounds, soft to palpation, non-tender and non-distended Extremity normal to inspection, full ROM and no clubbing, cyanosis or edema Peripheral Pulses: Yes pulses 2+ throughout Skin no rashes or lesions noted Neuro oriented x3 Sensorium / Orientation: awake and alert Psych affect normal Lab / Micro Data Result Diagrams: 07/05/20 15:07/05/20 15:22 Labs: Laboratory Results - last 24 hr 07/05/20 07/05/20 07/05/20 15: 15: 15:22 WBC 6.9 RBC 4.26 L Hgb 10.2 L Hct 35.8 L MCV 84.0 MCH 23.9 L MCHC 28.5 L RDW Std Deviation 62.7 H RDW Coeff of Cinda 21.4 H Plt Count 170 MPV 10.6 Immature Gran % (Auto) 0.300 Neut % (Auto) 78.2 H Lymph % (Auto) 14.4 L [place] % (Auto) 5.5 Eos % (Auto) 1.5 Baso % (Auto) 0.1 Absolute Neuts (auto) 5.4 Absolute Lymphs (auto) 0.99 Nucleated RBC % 0 Platelet Estimate ADEQUATE RBC Morphology N CHROM Hypochromasia RARE Anisocytosis 1+ Microcytosis RARE Ovalocytes RARE D-Dimer Quant (PE/DVT) 1.45 H* Sodium 140 Potassium 3.4 L Chloride 101 Carbon Dioxide 36.0 H Anion Gap 3 L BUN 14 Creatinine 0.87 Estim Creat Clear Calc 81.58 Est GFR (MDRD) Af Amer 112 Est GFR (MDRD) Non-Af 92 BUN/Creatinine Ratio 16.1 Glucose 173 H Calcium 8.1 L Troponin I 0.018 Assessment & Plan Assessment/Plan (1) Chest pain: (2) Syncope: (3) Acute dyspnea: PLAN: #Chest pain to r.o ACS * Admit patient to PCU with telemetry * Patient complains of pressure-like chest pain * initial troponin was negative, will cycle * SL nitroglycerin prn. PO aspirin 81mg daily * for stress test tomorrow if troponins are negative * #Syncope * Patient says he has frequent syncopal episodes. I am unsure of the cause of this as this has been going on for a long time with patient. * Will check orthostatics * D-dimer was elevated but CTA of the chest was negative * EKG showed no acute ST changes. * He had a 2D echocardiogram on April 20, 2020 which showed EF of 60% with indeterminate diastolic function and no regional wall motion abnormalities noted with pacer lead in the right ventricle and mildly enlarged left atrium. * will ask for pacer interrogation. * PT/OT consult * fall precautions * #Type 2 diabetes mellitus * ISS. Accuchecks ACHS. On Humulin U 500 120 units twice a day * * #CAD: S/p stents. Continue aspirin and Plavix as well as statin and carvedilol. Also on ranolazine #Chronic hypoxic respiratory failure due to COPD * Not in exacerbation. Continue breathing treatments of bronchodilators. BiPAP 16/ nightly. * #BPH: on flomax #CHronic anemia: * Hb is ~ 10. * states he required transfusion his last admission and he is due to follow-up with renal surgery for colonoscopy on outpatient basis. DVT prophylaxis: lovenox Code status: full code * Patient and counseled about differences between full code, DNR CCA and DNR CCA and would each entailed. Patient and left for patient to be full code. * Total face to face time- 17 mins Visit Charges OBSV E&M: 18818 Initial observation care L2 Procedures Hospitalists Procedures: 19773 Advncd Care Plan 30 Min
[2020-07-05 16:27] LABS: BNP,B-Type NATRIURETIC PEPTIDE 84.5 pg/mL (0-100)
--- NOTE | 2020-07-05 16:35 | NURSING ---
DR DEL HORNE
--- NOTE | 2020-07-05 16:57 | NURSING ---
106 OBS DEL CP, DYSPNEA, SYNCOPE
--- NOTE | 2020-07-05 17:44 | EKG12_ITS ---
Test Reason : Blood Pressure : / mmHG Vent. Rate : 064 BPM Atrial Rate : 441 BPM P-R Int : 000 ms QRS Dur : 112 ms QT Int : 446 ms P-R-T Axes : 000 -33 094 degrees QTc Int : 460 ms Sinus Rhythm with PAC's Left axis deviation Nonspecific ST and T wave abnormality Abnormal ECG When compared with ECG of 05-JUL-2020 15:15, MANUAL COMPARISON REQUIRED, DATA IS UNCONFIRMED Confirmed by BRYN GUALLPA, JULIO C ([id number]), video news editor NADINE FERRER ([id number]) on 07/10/2020 10:23:45 A M Referred By: DEL Confirmed By:BELEN CLEMENTE MD
--- NOTE | 2020-07-05 17:52 | EKG12_ITS ---
Test Reason : Blood Pressure : / mmHG Vent. Rate : 060 BPM Atrial Rate : 060 BPM P-R Int : 256 ms QRS Dur : 114 ms QT Int : 482 ms P-R-T Axes : 097 013 103 degrees QTc Int : 482 ms Sinus rhythm with 1st degree A-V block Inferior infarct , age undetermined Abnormal ECG When compared with ECG of 05-JUL-2020 21:29, MANUAL COMPARISON REQUIRED, DATA IS UNCONFIRMED Confirmed by BRYN GUALLPA, JULIO C ([id number]), video effects editor NADINE FERRER ([id number]) on 07/10/2020 10:18:43 A M Referred By: DEL Confirmed By:BELEN CLEMENTE MD
[2020-07-05 18:21] LABS: Bedside Glucose 186 mg/dL (70-110)
[2020-07-05] MEDS: Insulin U-500 UNITS/ML PEN 120 UNITS SC (18:24)
[2020-07-05] MEDS: Ferrous Sulfate 325 MG Tablet PO (18:33)
[2020-07-05] MEDS: Ipratropium 0.5 MG/2.5 ML SOLUTION INHALATION (18:38)
[2020-07-05] MEDS: Potassium Chloride Oral Tablet 20 MEQ 40 MEQ PO (18:52)
[2020-07-05] MEDS: Nitroglycerin (INPATIENT USE) 0.4 MG TAB.SUBL SL ×3 (21:24→21:50)
[2020-07-05] MEDS: Tamsulosin HCl 0.4 MG Capsule PO (21:25)
[2020-07-05] MEDS: Carvedilol 25 MG Tablet PO (21:25)
[2020-07-05] MEDS: Ranolazine 500 MG Tablet PO (21:26)
[2020-07-05] MEDS: Atorvastatin Calcium 80 MG Tablet PO (21:26)
[2020-07-05] MEDS: Pantoprazole Sodium 40 MG Tablet PO (21:26)
[2020-07-05 23:06] LABS: Bedside Glucose 155 mg/dL (70-110)
--- NOTE | 2020-07-05 23:15 | CPS ---
Patient refusing bipap at this time
[2020-07-05] MEDS: 0.9% Saline Lock 10 ML Syringe IV (23:49)
[2020-07-05] MEDS: Morphine 2 MG/ML Syringe IV (23:49)
[2020-07-06] VITALS (9 sets, daily range): BP systolic 120–140; BP diastolic 43–73; PULSE 60–84; RESP 12–21; TEMP 36.6–37; O2SAT 92–98
[2020-07-06 06:42] LABS: Absolute Lymphocyte Count 0.81 X10^3/uL (0.83-4.51); Absolute Neutrophil Count 5.5 X10^3/uL (2.0-7.7); Eosinophil# 0.11 X10^3/uL; Eosinophils% 1.6 % (0-5); Hematocrit 34.8 % (40-54); Hemoglobin 9.6 g/dL (13.0-16.5); Lymphocyte # 0.81 X10^3/ul (0.83-4.51); Lymphocyte % 11.9 % (19-41); Mean Corp Hgb Conc 27.6 g/dL (32-36); Mean Corpuscular Hgb 23.8 pg (27.0-32.0); Mean Corpuscular Volume 86.1 fL (80-94); Mean Platelet Vol. 11.1 fl (6.2-12.0); Monocyte# 0.41 X10^3/uL; NRBC Flagged by Analyzer 0 % (0-5); Neutrophil # 5.47 X10^3/uL (2.7-7.7); Neutrophil % 80.2 % (47-70); POSITIVE MORPHOLOGY YES; Platelet Count 127 K/mm3 (150-450); RBC Distribution Width CV 21.8 % (11.6-14.6); RBC Distribution Width SD 66.5 fl (35.1-43.9); Red Blood Count 4.04 M/mm3 (4.6-6.2); White Blood Count 6.8 K/mm3 (4.4-11.0)
[2020-07-06 06:52] LABS: Differential Indicated SCAN CRITERIA MET
[2020-07-06] MEDS: Aspirin 81 MG TAB.CHEW PO (06:54)
[2020-07-06] MEDS: Clopidogrel Bisulfate 75 MG Tablet PO (06:54)
[2020-07-06] MEDS: Ipratropium 0.5 MG/2.5 ML SOLUTION INHALATION ×2 (06:59→13:02)
[2020-07-06 07:00] LABS: Bedside Glucose 117 mg/dL (70-110)
[2020-07-06 07:02] LABS: Anion Gap 3 (5-15); BUN 19 mg/dL (7-18); BUN/Creat Ratio 26.5 RATIO (10-20); Chloride 102 mmol/L (98-107); Creatinine, Serum 0.72 mg/dL (0.70-1.30); EST Glomerular Filtration Rate 115 mL/min (>60); Est Glom Filt Rate - Afr Amer 139 mL/min (>60); Estimated Creatinine Clearance 70.97 ml/min; Glucose 72 mg/dL (74-106); Potassium 3.8 mmol/L (3.5-5.1); Sodium Level 142 mmol/L (136-145)
--- NOTE | 2020-07-06 07:15 | EKG12_ITS ---
Test Reason : CP Blood Pressure : / mmHG Vent. Rate : 063 BPM Atrial Rate : 133 BPM P-R Int : 000 ms QRS Dur : 110 ms QT Int : 346 ms P-R-T Axes : 000 -02 097 degrees QTc Int : 354 ms Sinus rhythm Inferior infarct , age undetermined Abnormal ECG When compared with ECG of 05-JUL-2020 17:44, MANUAL COMPARISON REQUIRED, DATA IS UNCONFIRMED Confirmed by BRYN GUALLPA, JULIO C ([id number]), publication editor NADINE FERRER ([id number]) on 07/10/2020 10:22:00 A M Referred By: DEL Confirmed By:BELEN CLEMENTE MD
[2020-07-06 07:24] LABS: Anisocytosis 2+; Differential Comment SCANNED; Hypochromasia 1+; Microcytosis 1+; Ovalocyte 1+
[2020-07-06] MEDS: Multivitamins,Therapeutic Tablet 1 TABLET PO (11:54)
[2020-07-06] MEDS: Escitalopram Oxalate 10 MG Tablet PO (11:55)
[2020-07-06] MEDS: Finasteride 5 MG Tablet PO (11:55)
[2020-07-06] MEDS: Pantoprazole Sodium 40 MG Tablet PO (11:55)
[2020-07-06] MEDS: Ferrous Sulfate 325 MG Tablet PO (11:55)
[2020-07-06] MEDS: Ranolazine 500 MG Tablet PO (11:55)
[2020-07-06] MEDS: Cholecalciferol (VIT D3) 25 MCG TABLET (1,000 UNITS) 75 MCG PO (11:55)
[2020-07-06] MEDS: Furosemide 40 MG Tablet PO (11:56)
[2020-07-06] MEDS: Potassium Chloride Oral Tablet 20 MEQ PO (11:56)
[2020-07-06] MEDS: Carvedilol 25 MG Tablet PO (11:56)
--- NOTE | 2020-07-06 14:59 | STRESSREP ---
Stress Test Report Date: 07/06/20 Procedure: Pharmacologic stress nuclear imaging study Indications: chest pain Consent: Per the patient Procedure: The patient underwent pharmacologic (Regadenoson) evaluation with a peak heart rate of 80 beats per minute (53%predicted maximal heart rate) and a peak blood pressure of 148/70 mmHg The baseline ECG demonstrated normal sinus rhythm. EKG during lexiscan infusion revealed no significant ischemic changes. EKG post infusion revealed no significant ischemic changes [There were no cardiac dysrhythmias pretest, during pharmacologic infusion, or recovery]. [There was no complaint of chest discomfort during pharmacologic infusion or recovery]. The examination was discontinued secondary to completion of protocol. Impression: 1. Lexiscan stress test test is negative for Lexiscan infusion induced EKG changes of ischemia. 2. Lexiscan stress test test is negative for Lexiscan infusion induced chest pain. 3. Results of the nuclear portion of the test is as below Myocardial perfusion imaging study: Technique: The patient was injected with 15 millicuries of technetium 99m Cardiolite and subsequently rest SPECT Cardiolite nuclear imaging was obtained in the horizontal long, vertical long, and short axis views. The patient underwent pharmacologic [Regadenoson 0.4mg] evaluation. Please see above for details. The patient was injected with 44.9 millicuries of technetium 99m Cardiolite and subsequently stress SPECT Cardiolite nuclear imaging was obtained in the horizontal long, vertical long, and short axis views. A gated Cardiolite study at peak stress was obtained Interpretation: Rest and stress SPECT Cardiolite nuclear imaging status post realignment, normalization, and attenuation correction demonstrate overall normal myocardial radioisotope uptake after attenuation correction. Gated images reveal no significant regional wall motion abnormalities. The reported LVEF is 57%. Impression: 1. There is no evidence of significant ischemia or infarction. 2. Estimated ejection fraction is 57%. This note was generated with [employer] software. It may contain incorrect words, spelling, and punctuation that were not noted in checking the note before signing.
--- NOTE | 2020-07-06 15:03 | CASEMGMT ---
Patient's asked therapy about [facility]. She wanted more information. SW took in a pamphlet. SW did let them know that SW does not think he has had a 60 day break from the hospital since his d/c from the SNF. Therefore depending on how many days he was at the SNF he may be in his co-pay days. Hoda Choi SILK SCREEN PRINTER MACHINE TREVOR
--- NOTE | 2020-07-06 15:19 | PCM.DC ---
Discharge Instructions Diet Discharge Diet: 1800 Calorie Control Diet Activity Discharge Activity: Return to Normal Activity Weight Bearing Status: Full weight bearing Follow Up Care Test Results: Test results from this visit will be discussed in further detail at your follow-up appointment, if applicable. Discharge Plan Admission Admit Date/Time: 07/05/20 17:52 Primary Reason for Your Visit: chest pain Attending Provider: Yassine Pugh Primary Care Provider: [facility] Instructions Patient Instructions: ED Chest Pain, Noncardiac Discharge Orders/Prescriptions Prescriptions: Continued atorvastatin 80 MG tablet 80 mg PO QHS RF: 0 clopidogrel 75 MG tablet 75 mg PO DAILY RF: 0 aspirin 81 MG tablet 81 mg PO DAILY@0800 RF: 0 finasteride 5 MG tablet 5 mg PO DAILY RF: 0 escitalopram oxalate 10 MG tablet 10 mg PO DAILY RF: 0 cholecalciferol (vitamin D3) [Vitamin D3] 1,000 UNIT tablet 3,000 units PO DAILY RF: 0 Humulin R U-500 (Conc) Kwikpen 500 UNIT/ML insulin pen 120 unit SQ BREAKFAST RF: 0 Humulin R U-500 (Conc) Kwikpen 500 UNIT/ML insulin pen 120 unit SQ DINNER RF: 0 nitroglycerin 0.4 MG tablet, sublingual 0.4 mg sublingual Q5M PRN (Reason: Chest Pain) Qty: 30 RF: 0 albuterol sulfate 1 INHALER inhaler 1 - 2 puff INHALATION 4X/DAY PRN PRN (Reason: Sob &/Or Wheezing) RF: 0 tamsulosin 0.4 MG capsule 0.4 mg PO QHS Qty: 30 RF: 0 pantoprazole 40 MG tablet 40 mg PO BID RF: 0 tiotropium bromide 2.5 mcg/actuation Mist 2 puff INHALATION DAILY RF: 0 carvedilol 25 MG tablet 25 mg PO BID RF: 0 multivitamin Tablet 1 tab PO DAILY RF: 0 furosemide 40 mg Tablet 40 mg PO DAILY RF: 0 potassium chloride [Klor-Con M20] 20 mEq Tablet,Er Particles/Crystals 20 meq PO DAILY RF: 0 ranolazine 500 mg Tablet Extended Release 12 Hr 500 mg PO BID RF: 0 acetaminophen [Tylenol] 325 MG tablet 325 mg PO Q6H PRN PRN (Reason: Mild pain 1-3/Temp > 100.7 F) RF: 0 ferrous sulfate 325 mg (65 mg iron) tablet 325 mg PO BID Qty: 60 RF: 0 guaifenesin 100 mg/5 mL Liquid 100 - 200 mg PO TID PRN (Reason: Cough) RF: 0 [facility]errals [facility] [[facility] - Within 2 Weeks Disposition Disposition (needs filled in before D/C Order can be placed): Home, self care
--- NOTE | 2020-07-06 15:27 | PHA.DC.MR ---
Pharmacy Service has performed discharge medication reconciliation for this patient. The patient's discharge medication list was reviewed for discrepancies and discrepancies were resolved. Home Medications Humulin R U-500 (Conc) Kwikpen 120 unit SQ BREAKFAST 06/11/18 Humulin R U-500 (Conc) Kwikpen 120 unit SQ DINNER 06/11/18 aspirin 81 mg PO DAILY@0800 06/11/18 atorvastatin 80 mg PO QHS 06/11/18 cholecalciferol (vitamin D3) [Vitamin D3] 3,000 units PO DAILY 06/11/18 clopidogrel 75 mg PO DAILY 06/11/18 escitalopram oxalate 10 mg PO DAILY 06/11/18 finasteride 5 mg PO DAILY 06/11/18 nitroglycerin 0.4 mg SUBLINGUAL Q5M PRN #30 tablet 07/22/18 albuterol sulfate 1 - 2 puff INHALATION 4X/DAY PRN PRN 04/08/20 tamsulosin 0.4 mg PO QHS #30 cap 04/10/20 pantoprazole 40 mg PO BID 05/18/20 acetaminophen [Tylenol] 325 mg PO Q6H PRN PRN 06/22/20 carvedilol 25 mg PO BID 06/22/20 furosemide 40 mg PO DAILY 06/22/20 multivitamin 1 tab PO DAILY 06/22/20 potassium chloride [Klor-Con M20] 20 meq PO DAILY 06/22/20 ranolazine 500 mg PO BID 06/22/20 tiotropium bromide 2 puff INHALATION DAILY 06/22/20 ferrous sulfate 325 mg PO BID #60 tab 06/23/20 guaifenesin 100 - 200 mg PO TID PRN 07/05/20
[2020-07-06 16:45] LABS: Bedside Glucose 199 mg/dL (70-110)
--- NOTE | 2020-07-07 17:40 | DS.PCM_ITS ---
Providers Date of Admission: 07/05/20 Date of Discharge: 07/06/20 Primary Care Physician: [facility] Reason For Visit: CHEST PAIN, SYNCOPE Diagnosis Discharge Diagnosis (1) Chest pain: Status: Acute Code(s): R07.9 - Chest pain, unspecified (2) Syncope: Status: Acute Code(s): R55 - Syncope and collapse (3) Acute dyspnea: Status: Acute Code(s): R06.00 - Dyspnea, unspecified Plan: 1. Noncardiac chest pain #2 type 2 diabetes #3 coronary artery disease #4 chronic anemia #5 chronic hypoxic respiratory failure Medications at Discharge Home Medications Humulin R U-500 (Conc) Kwikpen 120 unit SQ BREAKFAST 06/11/18 Humulin R U-500 (Conc) Kwikpen 120 unit SQ DINNER 06/11/18 aspirin 81 mg PO DAILY@0800 06/11/18 atorvastatin 80 mg PO QHS 06/11/18 cholecalciferol (vitamin D3) [Vitamin D3] 3,000 units PO DAILY 06/11/18 clopidogrel 75 mg PO DAILY 06/11/18 escitalopram oxalate 10 mg PO DAILY 06/11/18 finasteride 5 mg PO DAILY 06/11/18 nitroglycerin 0.4 mg SUBLINGUAL Q5M PRN #30 tablet 07/22/18 albuterol sulfate 1 - 2 puff INHALATION 4X/DAY PRN PRN 04/08/20 tamsulosin 0.4 mg PO QHS #30 cap 04/10/20 pantoprazole 40 mg PO BID 05/18/20 acetaminophen [Tylenol] 325 mg PO Q6H PRN PRN 06/22/20 carvedilol 25 mg PO BID 06/22/20 furosemide 40 mg PO DAILY 06/22/20 multivitamin 1 tab PO DAILY 06/22/20 potassium chloride [Klor-Con M20] 20 meq PO DAILY 06/22/20 ranolazine 500 mg PO BID 06/22/20 tiotropium bromide 2 puff INHALATION DAILY 06/22/20 ferrous sulfate 325 mg PO BID #60 tab 06/23/20 guaifenesin 100 - 200 mg PO TID PRN 07/05/20 Hospital Course Operations None Procedures Nuclear stress test Summary of Care Provided Minutes Spent on Discharge: 30 Hospital Course: 70-year-old white male presents to the emergency room at [facility] with complaint of shortness of breath x1 week and chest pain. Work-up in the emergency room showed an elevated D-dimer, potassium was 3.4, hemoglobin was 10.2, and white blood cell count was unremarkable. Patient's pulse ox was 94% on 3 L oxygen which is his home oxygen setting. Chest x-ray showed no acute pulmonary process. Patient was placed in observation status on PCU, serial cardiac enzymes were obtained and these were all negative. On 07/06/2020, patient underwent a nuclear stress test which was negative for reversible ischemia. Patient was seen and examined on 07/06/2020: On examination he appeared in good health and spirits. Vital signs as documented. Skin warm and dry and without overt rashes. Neck without JVD, neck was supple, trachea midline, thyroid was normal. Lungs clear bilaterally, normal air movement was noted. Heart exam notable for regular rhythm, normal sounds and absence of murmurs, rubs or gallops. Abdomen unremarkable and without evidence of organomegaly, masses, or abdominal aortic enlargement. Bowel sounds are present, abdomen is not distended. Extremities nonedematous, no cyanosis was noted, no clubbing was noted. Neuro: Cranial nerves II through XII are grossly intact, no focal motor deficits were noted, sensation to light touch and pinprick intact, motor exam 5/5 throughout. Psych: Patient is alert and oriented x3, he does not appear anxious or depressed, he does not appear agitated. Patient was discharged home in stable condition on 07/06/2020. ABG / Lab / Microbiology Data Result Diagrams: 07/06/20 05:50 07/06/20 05:50 D/C Instructions Discharge Diet: 1800 Calorie Control Diet Discharge Activity: Return to Normal Activity Weight Bearing Status: Full weight bearing Meaningful Use Info Meaningful Use Diagnoses (Choose all that apply): None applicable Discharge Plan Admission Admit Date/Time: 07/05/20 17:52 Primary Reason for Your Visit: chest pain Attending Provider: Yassine Pugh Primary Care Provider: [facility] Instructions Patient Instructions: ED Chest Pain, Noncardiac Additional Instructions / Restrictions: Patient Problems: Altered Health Status related to Hospitalization Patient Goals: *Optimal Level of Health *Keep Appointments *Medication Compliance *Remain Safe Discharge Orders/Prescriptions Prescriptions: Continued atorvastatin 80 MG tablet 80 mg PO QHS RF: 0 clopidogrel 75 MG tablet 75 mg PO DAILY RF: 0 aspirin 81 MG tablet 81 mg PO DAILY@0800 RF: 0 finasteride 5 MG tablet 5 mg PO DAILY RF: 0 escitalopram oxalate 10 MG tablet 10 mg PO DAILY RF: 0 cholecalciferol (vitamin D3) [Vitamin D3] 1,000 UNIT tablet 3,000 units PO DAILY RF: 0 Humulin R U-500 (Conc) Kwikpen 500 UNIT/ML insulin pen 120 unit SQ BREAKFAST RF: 0 Humulin R U-500 (Conc) Kwikpen 500 UNIT/ML insulin pen 120 unit SQ DINNER RF: 0 nitroglycerin 0.4 MG tablet, sublingual 0.4 mg sublingual Q5M PRN (Reason: Chest Pain) Qty: 30 RF: 0 albuterol sulfate 1 INHALER inhaler 1 - 2 puff INHALATION 4X/DAY PRN PRN (Reason: Sob &/Or Wheezing) RF: 0 tamsulosin 0.4 MG capsule 0.4 mg PO QHS Qty: 30 RF: 0 pantoprazole 40 MG tablet 40 mg PO BID RF: 0 tiotropium bromide 2.5 mcg/actuation Mist 2 puff INHALATION DAILY RF: 0 carvedilol 25 MG tablet 25 mg PO BID RF: 0 multivitamin Tablet 1 tab PO DAILY RF: 0 furosemide 40 mg Tablet 40 mg PO DAILY RF: 0 potassium chloride [Klor-Con M20] 20 mEq Tablet,Er Particles/Crystals 20 meq PO DAILY RF: 0 ranolazine 500 mg Tablet Extended Release 12 Hr 500 mg PO BID RF: 0 acetaminophen [Tylenol] 325 MG tablet 325 mg PO Q6H PRN PRN (Reason: Mild pain 1-3/Temp > 100.7 F) RF: 0 ferrous sulfate 325 mg (65 mg iron) tablet 325 mg PO BID Qty: 60 RF: 0 guaifenesin 100 mg/5 mL Liquid 100 - 200 mg PO TID PRN (Reason: Cough) RF: 0 Referrals [facility] [[facility]] - Within 2 Weeks Disposition Disposition (needs filled in before D/C Order can be placed): Home, self care Visit Charges OBSV E&M: [id number] Observation care discharge
--- NOTE | 2020-07-10 12:01 | CASEMGMT ---
Social Work Received call from [facility], Sharla - [phone], inquiring about patient's discharge disposition. Patient is active with [facility] services. Updated to discharge date and disposition as home. Let Sharla know that patient was observation status, so no new [facility] orders generated at time of discharge. No other services requested or indicated. -LOREE Raymond, COMPUTER PROGRAMMER ANALYST
== END 2020-07-06 15:22 | disposition home or self-care (01) ==
LOC: ED 16:45 → PCU 18:11
PROVIDERS: Admitting Provider Student in an Organized Health Care Education/Training Program; Emergency Provider Emergency Medicine; Visit Provider Internal Medicine
DX: R07.89 Other chest pain (principal); R55 Syncope and collapse; E11.9 Type 2 diabetes mellitus without complications; J96.11 Chronic respiratory failure with hypoxia; D64.9 Anemia, unspecified; I25.10 Atherosclerotic heart disease of native coronary artery without angina pectoris; J44.9 Chronic obstructive pulmonary disease, unspecified; I50.9 Heart failure, unspecified; I11.0 Hypertensive heart disease with heart failure; E78.5 Hyperlipidemia, unspecified; G47.33 Obstructive sleep apnea (adult) (pediatric); N40.0 Benign prostatic hyperplasia without lower urinary tract symptoms; E66.9 Obesity, unspecified; Z79.899 Other long term (current) drug therapy; Z79.82 Long term (current) use of aspirin; Z79.4 Long term (current) use of insulin; Z79.02 Long term (current) use of antithrombotics/antiplatelets; Z68.34 Body mass index [BMI] 34.0-34.9, adult; Z87.891 Personal history of nicotine dependence; Z95.0 Presence of cardiac pacemaker; Z95.1 Presence of aortocoronary bypass graft
CPT/HCPCS: 36415; 71045; 78452; 80048; 82962; 83880; 84484; 85025; 85379; 93005; 93017; 94002; 94640; 96374; 96376; 97162; 97166; 99218; 99285; A9500; J7030; A4216; G0378; J2785

== ENCOUNTER 2020-07-30 14:43 | Inpatient (IN) | payer OTHER, MEDICARE, SELFPAY ==
[2020-07-05 17:04] VITALS: BMI 34.2
[2020-07-30] VITALS (13 sets, daily range): BP systolic 130–161; BP diastolic 64–88; PULSE 60–67; RESP 12–25; TEMP 36.8–37.1; O2SAT 91–99; BMI 34.4; BMI 33.5
--- NOTE | 2020-07-30 15:23 | EKG12_ITS ---
Test Reason : SOB Blood Pressure : / mmHG Vent. Rate : 060 BPM Atrial Rate : 060 BPM P-R Int : 306 ms QRS Dur : 136 ms QT Int : 496 ms P-R-T Axes : 089 -32 088 degrees QTc Int : 496 ms AV dual-paced rhythm with prolonged AV conduction Abnormal ECG Confirmed by PADILLA GUALLPA, CALI ([id number]), sports editor NADINE FERRER ([id number]) on 08/02/2020 9:56:12 AM Referred By: JOHN Confirmed By:CALI CAUSEY MD
--- NOTE | 2020-07-30 15:26 | ED.VIS.DYS ---
HPI History of Present Illness Chief Complaint: Shortness of Breath Narrative Narrative: 70-year-old male with history of CAD, quadruple bypass, pacemaker, COPD, EKATERINA presenting with shortness of breath. He states that he always has dyspnea. He states that this morning. He started to feel dyspneic while sitting at rest. At baseline he wears 4 L of oxygen and has not required turning it up. He states that this morning he had some mild chest pain it felt like [id number] and has been present all day. He denies history of DVT/PE. Patient has no symptoms of fever, chills, myalgias, change in taste or smell. He is eating and drinking normally. He is making normal urine and stool. [facility] Medical History Abnormal EKG Anemia Atherosclerotic heart disease ely shoshone coronary artery w/angina pectoris BiPAP (biphasic positive airway pressure) dependence Chronic respiratory failure Diabetes Essential (primary) hypertension History of fractured rib Hyperlipidemia Obesity EKATERINA (obstructive sleep apnea) Stroke/cerebrovascular accident Wears hearing aid in both ears Home Medications Humulin R U-500 (Conc) Kwikpen 120 unit SQ BREAKFAST 06/11/18 [History Last Taken 07/05/20] Humulin R U-500 (Conc) Kwikpen 120 unit SQ DINNER 06/11/18 [History Last Taken 07/04/20] aspirin 81 mg PO DAILY@0800 06/11/18 [History Last Taken 07/05/20] atorvastatin 80 mg PO QHS 06/11/18 [History Last Taken 07/04/20] cholecalciferol (vitamin D3) [Vitamin D3] 3,000 units PO DAILY 06/11/18 [History Last Taken 07/04/20] clopidogrel 75 mg PO DAILY 06/11/18 [History Last Taken 07/05/20] escitalopram oxalate 10 mg PO DAILY 06/11/18 [History Last Taken 07/05/20] finasteride 5 mg PO DAILY 06/11/18 [History Last Taken 07/05/20] nitroglycerin 0.4 mg SUBLINGUAL Q5M PRN #30 tablet 07/22/18 [Rx Last Taken 01/17/20] albuterol sulfate 1 - 2 puff INHALATION 4X/DAY PRN PRN 04/08/20 [History Last Taken 07/05/20] tamsulosin 0.4 mg PO QHS #30 cap 04/10/20 [Rx Last Taken 07/04/20] pantoprazole 40 mg PO BID 05/18/20 [History Last Taken 07/05/20] acetaminophen [Tylenol] 325 mg PO Q6H PRN PRN 06/22/20 [History Last Taken 07/05/20] carvedilol 25 mg PO BID 06/22/20 [History Last Taken 07/05/20] furosemide 40 mg PO DAILY 06/22/20 [History Last Taken 07/05/20] multivitamin 1 tab PO DAILY 06/22/20 [History Last Taken 07/04/20] potassium chloride [Klor-Con M20] 20 meq PO DAILY 06/22/20 [History Last Taken 07/05/20] ranolazine 500 mg PO BID 06/22/20 [History Last Taken 07/05/20] tiotropium bromide 2 puff INHALATION DAILY 06/22/20 [History Last Taken 07/05/20] ferrous sulfate 325 mg PO BID #60 tab 06/23/20 [Rx Last Taken 07/05/20] guaifenesin 100 - 200 mg PO TID PRN 07/05/20 [History Last Taken 07/04/20] Allergy/AdvReac Type Severity Reaction Status Date / Time ezetimibe Allergy Unknown Verified 07/30/20 14:46 Fish Containing Products Allergy Unknown Verified 07/30/20 14:46 glyburide Allergy Unknown Verified 07/30/20 14:46 isosorbide Allergy PT UNSURE Verified 07/30/20 14:46 OF REACTION lisinopril Allergy Unknown Verified 07/30/20 14:46 metformin Allergy Nausea Verified 07/30/20 14:46 metoprolol Allergy Unknown Verified 07/30/20 14:46 simvastatin Allergy Unknown Verified 07/30/20 14:46 Family History Father No problems noted. Surgical History H/O coronary artery bypass surgery History of cholecystectomy History of cholecystectomy History of coronary artery stent placement History of knee replacement procedure of left knee History of permanent cardiac pacemaker placement (09/10/11) Social History household members: spouse Smoking Status: Former smoker substance use type: does not use ROS ROS ED Constitutional Constitutional ED: Denies chills, fever(s) or sweats Eyes Eyes: Denies blurry vision or change in vision ENT ENT ED: Denies ear pain or sore throat Cardiovascular Cardiovascular: Reports chest pain; Denies palpitations or racing heartbeat Respiratory/Chest Respiratory/Chest: Reports dyspnea; Denies cough or sputum Gastrointestinal Gastrointestinal: Denies abdominal pain, constipation, diarrhea, nausea or vomiting Genitourinary Genitourinary ED: Denies dysuria, hematuria or urinary frequency Musculoskeletal Musculoskeletal: Denies arthralgias, myalgias or neck pain Integumentary Denies abscess, Abrasions or rash Neurologic Neurologic: Denies headache(s), paresthesias or weakness Psychiatric Psychiatric: Denies anxiety, depression, suicidal ideation or suicidal thoughts Endocrine Endocrinology: Denies polydipsia or polyuria EXAM Physical Exam Const Vital Signs: 07/30/20 14:43 07/30/20 15:26 07/30/20 15:29 Temperature 98.6 F 98.4 F Temperature Source Temporal Temporal Pulse Rate 62 60 Respiratory Rate 20 H 25 H Respiratory Effort Respiratory Depth Respiratory Pattern Blood Pressure 161/73 H 154/66 H Blood Pressure Mean 102 95 Pulse Ox 99 Oxygen Delivery Method Nasal Cannula Nasal Cannula Nasal Cannula Oxygen Flow Rate (L/min) 3 3 3 07/30/20 15:50 07/30/20 17:00 07/30/20 19:00 Temperature 98.4 F 98.3 F Temperature Source Oral Temporal Pulse Rate 64 61 Respiratory Rate 18 15 Respiratory Effort Normal Respiratory Depth Normal Respiratory Pattern Normal Blood Pressure 150/68 H 144/64 H Blood Pressure Mean 95 90 Pulse Ox 96 98 Oxygen Delivery Method Nasal Cannula Nasal Cannula Oxygen Flow Rate (L/min) 3 3 3 07/30/20 19:15 07/30/20 20:00 Temperature 98.3 F Temperature Source Temporal Pulse Rate 60 62 Respiratory Rate 20 H 15 Respiratory Effort Respiratory Depth Respiratory Pattern Normal Blood Pressure 130/88 H Blood Pressure Mean 102 Pulse Ox 94 Oxygen Delivery Method Nasal Cannula Oxygen Flow Rate (L/min) 2 Positive obese General Appearance ED: NAD Nutritional Appearance: obese HEENT Reports moist mucous membranes atraumatic Eyes PERRL and EOMs intact bilaterally Neck no lymphadenopathy and supple Neck Narrative: Right paraspinal cervical muscular tenderness extending into right trapezius. No midline spinal tenderness, deformity, step-off. Resp normal respiratory effort and clear to auscultation bilaterally Cardio regular rate and regular rhythm Extremity normal to inspection General Extremety ED: Negative for edema or tenderness General Extremity: Negative for edema Neuro oriented x3 Sensorium / Orientation: alert Psych mental status grossly normal Thought Process: normal thought process Skin Lesions: no lesions Rashes: no rashes MDM MDM MDM Narrative Medical decision making narrative: Patient seen and evaluated on arrival. His vital signs are stable and he is afebrile. Patient had complaint of [id number] type of chest pain over the course of the entire day but does note that he had a recent stress test that was negative. He does not describe any squeezing or heaviness. Patient had EKG performed on arrival which is paced at 60 bpm on my interpretation. His lungs were clear to auscultation. I obtained lab work which shows his hemoglobin and hematocrit are stable. Renal function is normal. Electrolytes are normal. BNP is 96.4. Chest x-ray on my interpretation shows no acute cardiopulmonary process. Radiologist does agree. During patient stay he was noted to be dropping down to 87% on his baseline oxygen. At this point he was reevaluated and his lungs were still clear to auscultation. He states that he did miss his breathing treatment. He was given aerosols and Solu-Medrol. He was then ambulated on his baseline 3 L that he uses to ambulate and was hypoxic down to 87%. Given this reason I will admit him for hypoxia and possible COPD exacerbation. He was amenable to this plan. Patient stable on admission. Impression: 1. Hypoxic respiratory failure 2. COPD exacerbation Lab Data Labs: Laboratory Results - last 24 hr 07/30/20 07/30/20 07/30/20 15:50 15:50 15:50 WBC 5.6 RBC 4.29 L Hgb 11.4 L Hct 37.1 L MCV 86.5 MCH 26.6 L MCHC 30.7 L RDW Std Deviation 68.5 H RDW Coeff of Cinda 22.0 H Plt Count 167 MPV 10.1 Immature Gran % (Auto) 0.500 Neut % (Auto) 75.9 H Lymph % (Auto) 15.0 L [place] % (Auto) 6.4 Eos % (Auto) 2.0 Baso % (Auto) 0.2 Absolute Neuts (auto) 4.2 Absolute Lymphs (auto) 0.84 Nucleated RBC % 0 Platelet Estimate ADEQUATE RBC Morphology N CHROM Anisocytosis 1+ Ovalocytes 1+ Sodium 138 Potassium 3.9 Chloride 100 Carbon Dioxide 32.0 Anion Gap 6 BUN 14 Creatinine 0.93 Estim Creat Clear Calc 76.31 Est GFR (MDRD) Af Amer 103 Est GFR (MDRD) Non-Af 85 BUN/Creatinine Ratio 15.0 Glucose 359 H Calcium 8.5 Troponin I < 0.015 B-Natriuretic Peptide 96.4 Radiography Diagnostic Testing: Radiology Impression Chest X-Ray 07/30/20 16:06 IMPRESSION: No acute findings. Electronically Signed: Kim Mendoza MD at 16:47 EDT Tel , Service support , Discharge Plan Triage Chief Complaint: Shortness of Breath ED Provider: Cristian Oliveira Dx/Rx/DC Orders Primary Care Provider: [place] [place]
[2020-07-30] MEDS: Aspirin 81 MG TAB.CHEW 324 MG PO (15:42)
[2020-07-30 16:03] LABS: Absolute Lymphocyte Count 0.84 X10^3/uL (0.83-4.51); Absolute Neutrophil Count 4.2 X10^3/uL (2.0-7.7); Basophil# 0.01 X10^3/uL; Basophil% 0.2 % (0-1); Eosinophil# 0.11 X10^3/uL; Hematocrit 37.1 % (40-54); Hemoglobin 11.4 g/dL (13.0-16.5); Lymphocyte # 0.84 X10^3/ul (0.83-4.51); Mean Corp Hgb Conc 30.7 g/dL (32-36); Mean Corpuscular Hgb 26.6 pg (27.0-32.0); Mean Corpuscular Volume 86.5 fL (80-94); Mean Platelet Vol. 10.1 fl (6.2-12.0); Monocyte# 0.36 X10^3/uL; Monocyte% 6.4 % (0-10); NRBC Flagged by Analyzer 0 % (0-5); Neutrophil # 4.24 X10^3/uL (2.7-7.7); Neutrophil % 75.9 % (47-70); POSITIVE MORPHOLOGY YES; Platelet Count 167 K/mm3 (150-450); RBC Distribution Width SD 68.5 fl (35.1-43.9); Red Blood Count 4.29 M/mm3 (4.6-6.2); White Blood Count 5.6 K/mm3 (4.4-11.0)
--- NOTE | 2020-07-30 16:06 | RAD_ITS ---
STUDY: X-RAY CHEST REASON FOR EXAM: Male, 70 years old. chest pain TECHNIQUE: Single AP portable view of the chest. COMPARISON: 07/05/2020. FINDINGS: The lungs are clear and expanded. There is no demonstrated pleural abnormality. Normal size heart. Prior sternotomy. Dual-lead cardiac pacemaker on the left. Wires are intact. Normal mediastinum and cata. Normal visualized pulmonary arteries. Normal visualized aortic arch and descending thoracic aorta. Prior plate and screw fixation of the left ribs. Soft tissues and bony structures are otherwise unremarkable. RAD/Chest 1 View (Portable) IMPRESSION: No acute findings. Electronically Signed: Kim Mendoza MD at 16:47 EDT Tel , Service support ,
[2020-07-30 16:13] LABS: Differential Indicated SCAN CRITERIA MET
[2020-07-30 16:20] LABS: Anion Gap 6 (5-15); BUN 14 mg/dL (7-18); Calcium,Total 8.5 mg/dL (8.5-10.1); Chloride 100 mmol/L (98-107); Creatinine, Serum 0.93 mg/dL (0.70-1.30); EST Glomerular Filtration Rate 85 mL/min (>60); Est Glom Filt Rate - Afr Amer 103 mL/min (>60); Estimated Creatinine Clearance 76.31 ml/min; Glucose 359 mg/dL (74-106); Potassium 3.9 mmol/L (3.5-5.1); Sodium Level 138 mmol/L (136-145)
[2020-07-30 16:37] LABS: Anisocytosis 1+; Ovalocyte 1+; Platelet Estimate ADEQUATE (ADEQ); Red Cell Morphology N CHROM NORMAL (NORM C&C)
[2020-07-30 16:46] LABS: BNP,B-Type NATRIURETIC PEPTIDE 96.4 pg/mL (0-100)
[2020-07-30] MEDS: Ondansetron 4 MG/2 ML Vial IV (17:02)
[2020-07-30] MEDS: Morphine 4 MG/ML Syringe IV (17:02)
[2020-07-30] MEDS: MethylPREDNISolone 125 MG/2 ML Vial IV (19:06)
[2020-07-30] MEDS: Albuterol 2.5 MG/3 ML VIAL.NEB. INHALATION (19:14)
[2020-07-30] MEDS: Ipratropium/Albuterol Sulfate 3 ML AMPUL.NEB INHALATION (19:14)
--- NOTE | 2020-07-30 20:23 | HP.PCM_ITS ---
HPI - General HPI Narrative GIOVANNY LEONARDO, is a 70 M who presents to the emergency room with chest pain and shortness of breath. Onset of symptoms began earlier this morning while he was at rest in bed. He describes the chest pain as a prickliness or heavy sensation over the middle of the chest that is nonradiating in nature. The pain in his chest has been alleviated by the use of morphine in the emergency room today. Over an observation period of over 4 hours the patient was ambulated on his routine level of oxygen at home however he desatted to 88% and became tachypneic. Hospitalist service was then asked to evaluate the patient for appropriateness of admission due to his hypoxia. He has had a recent stress test that was negative. The patient denies any nausea vomiting or diarrhea no other constitutional symptoms at this time. 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 BiPAP (biphasic positive airway pressure) dependence Chronic respiratory failure Diabetes Essential (primary) hypertension History of fractured rib Hyperlipidemia Obesity EKATERINA (obstructive sleep apnea) Stroke/cerebrovascular accident Wears hearing aid in both ears Home Medications Humulin R U-500 (Conc) Kwikpen 120 unit SQ BREAKFAST 06/11/18 [History Last Taken 07/05/20] Humulin R U-500 (Conc) Kwikpen 120 unit SQ DINNER 06/11/18 [History Last Taken 07/04/20] aspirin 81 mg PO DAILY@0800 06/11/18 [History Last Taken 07/05/20] atorvastatin 80 mg PO QHS 06/11/18 [History Last Taken 07/04/20] cholecalciferol (vitamin D3) [Vitamin D3] 3,000 units PO DAILY 06/11/18 [History Last Taken 07/04/20] clopidogrel 75 mg PO DAILY 06/11/18 [History Last Taken 07/05/20] escitalopram oxalate 10 mg PO DAILY 06/11/18 [History Last Taken 07/05/20] finasteride 5 mg PO DAILY 06/11/18 [History Last Taken 07/05/20] nitroglycerin 0.4 mg SUBLINGUAL Q5M PRN #30 tablet 07/22/18 [Rx Last Taken 01/17/20] albuterol sulfate 1 - 2 puff INHALATION 4X/DAY PRN PRN 04/08/20 [History Last Taken 07/05/20] tamsulosin 0.4 mg PO QHS #30 cap 04/10/20 [Rx Last Taken 07/04/20] pantoprazole 40 mg PO BID 05/18/20 [History Last Taken 07/05/20] acetaminophen [Tylenol] 325 mg PO Q6H PRN PRN 06/22/20 [History Last Taken 07/05/20] carvedilol 25 mg PO BID 06/22/20 [History Last Taken 07/05/20] furosemide 40 mg PO DAILY 06/22/20 [History Last Taken 07/05/20] multivitamin 1 tab PO DAILY 06/22/20 [History Last Taken 07/04/20] potassium chloride [Klor-Con M20] 20 meq PO DAILY 06/22/20 [History Last Taken 07/05/20] ranolazine 500 mg PO BID 06/22/20 [History Last Taken 07/05/20] tiotropium bromide 2 puff INHALATION DAILY 06/22/20 [History Last Taken 07/05/20] ferrous sulfate 325 mg PO BID #60 tab 06/23/20 [Rx Last Taken 07/05/20] guaifenesin 100 - 200 mg PO TID PRN 07/05/20 [History Last Taken 07/04/20] Allergy/AdvReac Type Severity Reaction Status Date / Time ezetimibe Allergy Unknown Verified 07/30/20 14:46 Fish Containing Products Allergy Unknown Verified 07/30/20 14:46 glyburide Allergy Unknown Verified 07/30/20 14:46 isosorbide Allergy PT UNSURE Verified 07/30/20 14:46 OF REACTION lisinopril Allergy Unknown Verified 07/30/20 14:46 metformin Allergy Nausea Verified 07/30/20 14:46 metoprolol Allergy Unknown Verified 07/30/20 14:46 simvastatin Allergy Unknown Verified 07/30/20 14:46 Family History Father No problems noted. Surgical History H/O coronary artery bypass surgery History of cholecystectomy History of cholecystectomy History of coronary artery stent placement History of knee replacement procedure of left knee History of permanent cardiac pacemaker placement (09/10/11) Social History household members: spouse Smoking Status: Former smoker substance use type: does not use ROS Constitutional Constitutional: Reports fatigue ENT HEENT: Denies loss taste/smell or nasal congestion Cardiovascular Cardiovascular: Reports chest pain; Denies palpitations Respiratory/Chest Respiratory/Chest: Reports cough and shortness of breath at rest Gastrointestinal Gastrointestinal: Denies abdominal pain, constipation or diarrhea Genitourinary Genitourinary: Denies dysuria Musculoskeletal Musculoskeletal: Denies back pain Neurologic Neurologic: Denies abnormal speech Psychiatric Psychiatric: Denies anxiety Endocrine Endocrinology: Denies change in body appearance Hematologic/Lymphatic Hematologic/Lymphatic: Denies anemia Vital Signs Vital Signs Vital Signs: 07/30/20 14:43 07/30/20 15:26 07/30/20 15:29 Temperature 98.6 F 98.4 F Temperature Source Temporal Temporal Pulse Rate 62 60 Respiratory Rate 20 H 25 H Respiratory Effort Respiratory Depth Respiratory Pattern Blood Pressure 161/73 H 154/66 H Blood Pressure Mean 102 95 Pulse Ox 99 Oxygen Delivery Method Nasal Cannula Nasal Cannula Nasal Cannula Oxygen Flow Rate (L/min) 3 3 3 07/30/20 15:50 07/30/20 17:00 07/30/20 19:00 Temperature 98.4 F 98.3 F Temperature Source Oral Temporal Pulse Rate 64 61 Respiratory Rate 18 15 Respiratory Effort Normal Respiratory Depth Normal Respiratory Pattern Normal Blood Pressure 150/68 H 144/64 H Blood Pressure Mean 95 90 Pulse Ox 96 98 Oxygen Delivery Method Nasal Cannula Nasal Cannula Oxygen Flow Rate (L/min) 3 3 3 07/30/20 19:15 07/30/20 20:00 Temperature 98.3 F Temperature Source Temporal Pulse Rate 60 62 Respiratory Rate 20 H 15 Respiratory Effort Respiratory Depth Respiratory Pattern Normal Blood Pressure 130/88 H Blood Pressure Mean 102 Pulse Ox 94 Oxygen Delivery Method Nasal Cannula Oxygen Flow Rate (L/min) 2 Weight Weight: 240 lb Body Mass Index (BMI) 34.4 Physical Exam Const oriented x3 General Appearance: cooperative HEENT normocephalic and head/scalp atraumatic Eyes PERRL and EOMs intact bilaterally Neck supple Lymph Lymphatic: no lymphadenopathy noted Resp Effort and Inspection: Negative for labored Auscultation: diminished lung sounds left Cardio regular rate, regular rhythm, S1 normal heart sound, S2 normal heart sound and no gallops GI normal to inspection, nondistended, normoactive bowel sounds Extremity normal capillary refill and no clubbing, cyanosis or edema Skin General Skin Exam: turgor normal Neuro CN's II-XII intact bilaterally Psych affect normal Results Lab / Micro Data Result Diagrams: 07/30/20 15:50 07/30/20 15:50 Labs: Laboratory Results - last 24 hr 07/30/20 07/30/20 07/30/20 15:50 15:50 15:50 WBC 5.6 RBC 4.29 L Hgb 11.4 L Hct 37.1 L MCV 86.5 MCH 26.6 L MCHC 30.7 L RDW Std Deviation 68.5 H RDW Coeff of Cinda 22.0 H Plt Count 167 MPV 10.1 Immature Gran % (Auto) 0.500 Neut % (Auto) 75.9 H Lymph % (Auto) 15.0 L [place] % (Auto) 6.4 Eos % (Auto) 2.0 Baso % (Auto) 0.2 Absolute Neuts (auto) 4.2 Absolute Lymphs (auto) 0.84 Nucleated RBC % 0 Platelet Estimate ADEQUATE RBC Morphology N CHROM Anisocytosis 1+ Ovalocytes 1+ Sodium 138 Potassium 3.9 Chloride 100 Carbon Dioxide 32.0 Anion Gap 6 BUN 14 Creatinine 0.93 Estim Creat Clear Calc 76.31 Est GFR (MDRD) Af Amer 103 Est GFR (MDRD) Non-Af 85 BUN/Creatinine Ratio 15.0 Glucose 359 H Calcium 8.5 Troponin I < 0.015 B-Natriuretic Peptide 96.4 Radiology Impression Chest X-Ray 07/30/20 16:06 IMPRESSION: No acute findings. Electronically Signed: Kim Mendoza MD at 16:47 EDT Tel , Service support , Assessment & Plan Assessment/Plan (1) DM type 2 (diabetes mellitus, type 2): QUALIFIERS: Qualified Code(s): Z79.4 - [facility] (current) use of insulin (2) CAD (coronary artery disease): (3) Dyspnea: QUALIFIERS: Dyspnea type: shortness of breath Qualified Code(s): R06.02 - Shortness of breath (4) COPD (chronic obstructive pulmonary disease): QUALIFIERS: COPD type: COPD with acute exacerbation Qualified Code(s): J44.1 - Chronic obstructive pulmonary disease with (acute) exacerbation (5) Acute exacerbation of chronic obstructive pulmonary disease (COPD): (6) Chest pain: (7) History of coronary artery stent placement: (8) H/O coronary artery bypass surgery: (9) Essential (primary) hypertension: (10) EKATERINA (obstructive sleep apnea): (11) Hyperlipidemia: (12) Obesity: QUALIFIERS: Body mass index: BMI 34.0-34.9 PLAN: 1. Hypoxia secondary to COPD exacerbation?admit patient to progressive care unit, place patient on oxygen per routine protocol, Solu-Medrol 40 mg IV every 8 hours, DuoNeb INH every 4 hours as needed, Levaquin 500 mg IV daily 2. Chest pain with history of coronary artery disease status post bypass surgery?recent stress test normal, will cycle cardiac enzymes, morphine 2 mg IV every 2 to 3 hours as needed for pain 3. Diabetes?continue routine home medications 4. Hypertension?continue routine home medications 5. Hyperlipidemia?continue statin 6. DVT prophylaxis?low molecular weight heparin Charges/Coding Visit Charges Inpatient E&M: 17900 Init Hosp L3
--- NOTE | 2020-07-30 21:50 | EKG12_ITS ---
Test Reason : CP ADMISSION Blood Pressure : / mmHG Vent. Rate : 060 BPM Atrial Rate : 060 BPM P-R Int : 304 ms QRS Dur : 122 ms QT Int : 442 ms P-R-T Axes : 094 -29 076 degrees QTc Int : 442 ms Sinus rhythm with 1st degree A-V block Nonspecific ST and T wave abnormality Abnormal ECG When compared with ECG of 30-JUL-2020 15:41, MANUAL COMPARISON REQUIRED, DATA IS UNCONFIRMED Confirmed by PADILLA GUALLPA, CALI ([id number]), newspaper copy editor NADINE FERRER ([id number]) on 08/01/2020 7:57:20 AM Referred By: ANJELICA Confirmed By:CALI CAUSEY MD
[2020-07-30] MEDS: levoFLOXacin IV 500 MG/100 ML BAG 100 MG IV (22:04)
[2020-07-30] MEDS: Morphine 2 MG/ML Syringe IV (22:05)
[2020-07-30] MEDS: Carvedilol 25 MG Tablet PO (22:07)
[2020-07-30] MEDS: Pantoprazole Sodium 40 MG Tablet PO (22:08)
[2020-07-30] MEDS: Tamsulosin HCl 0.4 MG Capsule PO (22:08)
[2020-07-30] MEDS: Atorvastatin Calcium 80 MG Tablet PO (22:08)
[2020-07-30] MEDS: Ranolazine 500 MG Tablet PO (22:08)
[2020-07-30] MEDS: Insulin U-500 UNITS/ML PEN 120 UNITS SC (22:09)
[2020-07-30 22:10] LABS: Bedside Glucose 356 mg/dL (70-110)
--- NOTE | 2020-07-30 22:19 | NURSING ---
Pt unsure of the meds he takes on on a daily bases. Will have to check with tomorrow
[2020-07-31] VITALS (12 sets, daily range): BP systolic 118–147; BP diastolic 53–70; PULSE 60–83; RESP 12–21; TEMP 36.4–36.6; O2SAT 87–96
[2020-07-31] MEDS: Nitroglycerin (INPATIENT USE) 0.4 MG TAB.SUBL SL ×3 (01:31→01:41)
[2020-07-31] MEDS: Morphine 2 MG/ML Syringe IV (01:45)
--- NOTE | 2020-07-31 01:45 | NURSING ---
pt c/o chest pain. 3 nitro given. still c/o left side chest pressure and down left arm. Rates [pain 8 . Morpine given
[2020-07-31] MEDS: 0.9% Saline Lock 10 ML Syringe IV ×2 (01:46→05:34)
[2020-07-31 05:13] LABS: Absolute Lymphocyte Count 0.29 X10^3/uL (0.83-4.51); Absolute Neutrophil Count 3.3 X10^3/uL (2.0-7.7); Hematocrit 37.3 % (40-54); Hemoglobin 11.6 g/dL (13.0-16.5); Lymphocyte # 0.29 X10^3/ul (0.83-4.51); Lymphocyte % 7.9 % (19-41); Mean Corp Hgb Conc 31.1 g/dL (32-36); Mean Corpuscular Hgb 26.9 pg (27.0-32.0); Mean Corpuscular Volume 86.3 fL (80-94); Mean Platelet Vol. 9.6 fl (6.2-12.0); Monocyte# 0.04 X10^3/uL; Monocyte% 1.1 % (0-10); NRBC Flagged by Analyzer 0 % (0-5); Neutrophil # 3.32 X10^3/uL (2.7-7.7); Neutrophil % 90.7 % (47-70); POSITIVE DIFFERENTIAL YES; POSITIVE MORPHOLOGY YES; Platelet Count 150 K/mm3 (150-450); RBC Distribution Width CV 21.7 % (11.6-14.6); RBC Distribution Width SD 67.5 fl (35.1-43.9); Red Blood Count 4.32 M/mm3 (4.6-6.2); White Blood Count 3.7 K/mm3 (4.4-11.0)
[2020-07-31 05:17] LABS: Differential Indicated SCAN CRITERIA MET
[2020-07-31 05:38] LABS: Anion Gap 5 (5-15); BUN 17 mg/dL (7-18); BUN/Creat Ratio 18.3 RATIO (10-20); Calcium,Total 8.7 mg/dL (8.5-10.1); Chloride 99 mmol/L (98-107); Creatinine, Serum 0.93 mg/dL (0.70-1.30); EST Glomerular Filtration Rate 86 mL/min (>60); Est Glom Filt Rate - Afr Amer 104 mL/min (>60); Estimated Creatinine Clearance 76.31 ml/min; Glucose 359 mg/dL (74-106); Potassium 4.8 mmol/L (3.5-5.1); Sodium Level 138 mmol/L (136-145)
[2020-07-31] MEDS: Ipratropium/Albuterol Sulfate 3 ML AMPUL.NEB INHALATION ×2 (06:58→11:05)
--- NOTE | 2020-07-31 07:18 | PN.HOSP_ITS ---
Subjective Subjective Patient seen and examined. He was admitted to be managed for shortness of breath. He was saturationg at 88% and tachypneic, so he was brought in to the hospital and is being managed for COPD exacerbation. Patient seen and examined. Shortness of breath is getting better. Review of systems otherwise negative. Objective Data Objective Data Vital Signs: Vital Signs Temp Pulse Resp BP Pulse Ox 98 F 83 19 H 118/53 L 96 07/31/20 02:00 07/31/20 07:00 07/31/20 07:00 07/31/20 02:00 07/31/20 07:00 Oxygen Flow Rate (L/min) 30 Oxygen Delivery Method Bi-pap Weight: 234 lb 2.095 oz Body Mass Index (BMI) 33.5 Intake & Output: Intake and Output for Last 24 Hours 07/29/20 07/30/20 07/31/20 23:59 23:59 23:59 Intake Total 428.25 / 428.25 240 / 240 Output Total 150 / 150 1050 / 1050 Balance 278.25 / 278.25 -810 / -810 Lab / Micro Data Result Diagrams: 07/31/20 04:58 07/31/20 04:58 Labs: Laboratory Results - last 24 hr 07/30/20 07/30/20 07/30/20 15:50 15:50 15:50 WBC 5.6 RBC 4.29 L Hgb 11.4 L Hct 37.1 L MCV 86.5 MCH 26.6 L MCHC 30.7 L RDW Std Deviation 68.5 H RDW Coeff of Cinda 22.0 H Plt Count 167 MPV 10.1 Immature Gran % (Auto) 0.500 Neut % (Auto) 75.9 H Lymph % (Auto) 15.0 L [place] % (Auto) 6.4 Eos % (Auto) 2.0 Baso % (Auto) 0.2 Absolute Neuts (auto) 4.2 Absolute Lymphs (auto) 0.84 Nucleated RBC % 0 Diff Path Review Platelet Estimate ADEQUATE RBC Morphology N CHROM Anisocytosis 1+ Ovalocytes 1+ Sodium 138 Potassium 3.9 Chloride 100 Carbon Dioxide 32.0 Anion Gap 6 BUN 14 Creatinine 0.93 Estim Creat Clear Calc 76.31 Est GFR (MDRD) Af Amer 103 Est GFR (MDRD) Non-Af 85 BUN/Creatinine Ratio 15.0 Glucose 359 H Calcium 8.5 Troponin I < 0.015 B-Natriuretic Peptide 96.4 POC Glucose 07/30/20 07/30/20 07/31/20 22:04 23:00 01:55 WBC RBC Hgb Hct MCV MCH MCHC RDW Std Deviation RDW Coeff of Cinda Plt Count MPV Immature Gran % (Auto) Neut % (Auto) Lymph % (Auto) [place] % (Auto) Eos % (Auto) Baso % (Auto) Absolute Neuts (auto) Absolute Lymphs (auto) Nucleated RBC % Diff Path Review Platelet Estimate RBC Morphology Anisocytosis Ovalocytes Sodium Potassium Chloride Carbon Dioxide Anion Gap BUN Creatinine Estim Creat Clear Calc Est GFR (MDRD) Af Amer Est GFR (MDRD) Non-Af BUN/Creatinine Ratio Glucose Calcium Troponin I < 0.015 < 0.015 B-Natriuretic Peptide POC Glucose 356 H 07/31/20 07/31/20 07/31/20 04:58 04:58 04:58 WBC 3.7 L RBC 4.32 L Hgb 11.6 L Hct 37.3 L MCV 86.3 MCH 26.9 L MCHC 31.1 L RDW Std Deviation 67.5 H RDW Coeff of Cinda 21.7 H Plt Count 150 MPV 9.6 Immature Gran % (Auto) 0.300 Neut % (Auto) 90.7 H Lymph % (Auto) 7.9 L [place] % (Auto) 1.1 Eos % (Auto) 0.0 Baso % (Auto) 0.0 Absolute Neuts (auto) 3.3 Absolute Lymphs (auto) 0.29 L Nucleated RBC % 0 Diff Path Review May foll Platelet Estimate RBC Morphology Anisocytosis Ovalocytes Sodium 138 Potassium 4.8 Chloride 99 Carbon Dioxide 34.0 H Anion Gap 5 BUN 17 Creatinine 0.93 Estim Creat Clear Calc 76.31 Est GFR (MDRD) Af Amer 104 Est GFR (MDRD) Non-Af 86 BUN/Creatinine Ratio 18.3 Glucose 359 H Calcium 8.7 Troponin I < 0.015 B-Natriuretic Peptide POC Glucose Radiography Diagnostic Testing: Radiology Impression Chest X-Ray 07/30/20 16:06 IMPRESSION: No acute findings. Electronically Signed: Kim Mendoza MD at 16:47 EDT Tel , Service support , Physical Exam Const alert and oriented x3 Exam Limitations: no limitations HEENT head/scalp atraumatic and moist oral mucous membranes Head and Scalp: normocephalic Eyes PERRL, EOMs intact bilaterally and conjunctivae normal Neck no lymphadenopathy, supple and no JVD Resp Resp Narrative: diminished breath sounds bibasally, no wheezes or crackles. on 2L of oxygen Cardio regular rate, regular rhythm, S1 normal heart sound, S2 normal heart sound and no gallops GI normal to inspection, nondistended, normoactive bowel sounds, soft to palpation, non-tender and non-distended Extremity normal to inspection, full ROM and no clubbing, cyanosis or edema Peripheral Pulses: Yes pulses 2+ throughout Neuro oriented x3 Sensorium / Orientation: awake and alert Psych affect normal Assessment & Plan Assessment/Plan (1) Acute dyspnea: (2) Acute and chronic respiratory failure: PLAN: #Acute on chronic hypoxic respiratory failure due to COPD exacerbation * on breathing treatment with bronchodilators. * Titrate oxygen to maintain sats >90% * on levaquin. * #Chest pain: troponins x 3 are negative. recent stress test was negative. IV morphine 2mg q3prn #Type 2 diabetes mellitus * on statin * DVT prophylaxis: lovenox Charges/Coding Visit Charges Inpatient E&M: [address] [facility] Hosp L3
[2020-07-31] MEDS: Insulin U-500 UNITS/ML PEN 120 UNITS SC (08:05)
[2020-07-31] MEDS: Pantoprazole Sodium 40 MG Tablet PO (08:07)
[2020-07-31] MEDS: Aspirin E.C. 81 MG Tablet PO (08:07)
[2020-07-31] MEDS: Finasteride 5 MG Tablet PO (08:07)
[2020-07-31] MEDS: Furosemide 40 MG Tablet PO (08:07)
[2020-07-31] MEDS: Potassium Chloride Oral Tablet 20 MEQ PO (08:08)
[2020-07-31] MEDS: Ranolazine 500 MG Tablet PO (08:08)
[2020-07-31] MEDS: Escitalopram Oxalate 10 MG Tablet PO (08:08)
[2020-07-31] MEDS: Cholecalciferol (VIT D3) 25 MCG TABLET (1,000 UNITS) 75 MCG PO (08:08)
[2020-07-31] MEDS: Clopidogrel Bisulfate 75 MG Tablet PO (08:08)
[2020-07-31] MEDS: Carvedilol 25 MG Tablet PO (08:08)
[2020-07-31 09:16] LABS: Bedside Glucose 327 mg/dL (70-110)
--- NOTE | 2020-07-31 10:59 | PCM.DC.SUM ---
Providers Date of Admission: 07/30/20 Primary Care Physician: [facility] Reason For Visit: COPD EXACERBATION, CHEST PAIN Diagnosis Discharge Diagnosis (1) Acute dyspnea: Status: Acute Code(s): R06.00 - Dyspnea, unspecified (2) Acute and chronic respiratory failure: Status: Chronic Code(s): J96.20 - Acute and chronic respiratory failure, unspecified whether with hypoxia or hypercapnia Medications at Discharge Home Medications Humulin R U-500 (Conc) Kwikpen 120 unit SQ BREAKFAST 06/11/18 Humulin R U-500 (Conc) Kwikpen 120 unit SQ DINNER 06/11/18 aspirin 81 mg PO DAILY@0800 06/11/18 atorvastatin 80 mg PO QHS 06/11/18 cholecalciferol (vitamin D3) [Vitamin D3] 3,000 units PO DAILY 06/11/18 clopidogrel 75 mg PO DAILY 06/11/18 escitalopram oxalate 10 mg PO DAILY 06/11/18 finasteride 5 mg PO DAILY 06/11/18 nitroglycerin 0.4 mg SUBLINGUAL Q5M PRN #30 tablet 07/22/18 albuterol sulfate 1 - 2 puff INHALATION 4X/DAY PRN PRN 04/08/20 tamsulosin 0.4 mg PO QHS #30 cap 04/10/20 pantoprazole 40 mg PO BID 05/18/20 acetaminophen [Tylenol] 325 mg PO Q6H PRN PRN 06/22/20 carvedilol 25 mg PO BID 06/22/20 furosemide 40 mg PO DAILY 06/22/20 multivitamin 1 tab PO DAILY 06/22/20 potassium chloride [Klor-Con M20] 20 meq PO DAILY 06/22/20 ranolazine 500 mg PO BID 06/22/20 tiotropium bromide 2 puff INHALATION DAILY 06/22/20 ferrous sulfate 325 mg PO BID #60 tab 06/23/20 guaifenesin 100 - 200 mg PO TID PRN 07/05/20 prednisone 40 mg PO DAILY #10 tab 07/31/20 Hospital Course Operations None Procedures None Summary of Care Provided Minutes Spent on Discharge: 35 Hospital Course: Patient is a 70-year-old male with an extensive past medical history as outlined was admitted through the ED on 07/30/2020 with a complaint of shortness of breath and chest pain he described the chest pain as prickly or having sensation about the middle of the chest and was nonradiating. Shortness of breath also gradually worsened to the point where he was saturating at 88% on room air and became tachypneic. Review of systems otherwise negative. Of note, patient has had multiple admissions over the last several months for this exact same symptoms. He did have a stress test done on 07/06/2020 which was negative for any evidence of ischemia and showed EF of 57%. He also had an echocardiogram done in March 2020 which showed EF of 55% and normal left ventricular systolic function with ICD or pacer leads identified in the right ventricle and pulmonary systolic pressure of 30 mmHg. Troponins x3 were negative and EKG showed no acute ST changes. BNP was also only 96.4. He was admitted and managed for COPD exacerbation. He was placed on oxygen and started on IV Solu-Medrol 40 mg every 8 hours and breathing treatments of bronchodilators. Patient felt much better on 07/31/2020 and the shortness of breath had completely resolved. Patient requested to be discharged home as he had an appointment with his taproom attendant at the [facility] coming up in a day or 2 and did not want to miss the appointment because we will take him about 6 months to get another appointment. Patient ambulated and was saturating at around 90% on his baseline 3 L of oxygen. He was therefore discharged home on 07/31/2020 with a prescription for p.o. prednisone 40 mg daily for 5 days. He usually uses breathing treatments at home for shortness of breath and is to follow-up with his primary care doctor and to follow-up at the [facility] with his taproom attendant as scheduled. Patient was seen and examined prior to discharge. He felt better and had no complaints. Review of systems otherwise negative. Labs and vitals reviewed. Medication reviewed and reconciled. Physical Exam Const alert and oriented x3 General Appearance: cooperative Exam Limitations: no limitations HEENT normocephalic, head/scalp atraumatic and moist oral mucous membranes Eyes PERRL, EOMs intact bilaterally and conjunctivae normal Neck no lymphadenopathy, supple and no JVD Lymph Lymphatic: no lymphadenopathy noted Resp normal respiratory effort, no retractions and no use of accessory muscles Resp Narrative: on 3L of oxygen, which is his baseline Effort and Inspection: Negative for labored Auscultation: diminished lung sounds left Cardio regular rate, regular rhythm, S1 normal heart sound, S2 normal heart sound and no gallops GI normal to inspection, nondistended, normoactive bowel sounds, soft to palpation, non-tender and non-distended Extremity normal to inspection, full ROM, normal capillary refill and no clubbing, cyanosis or edema Skin General Skin Exam: turgor normal Neuro oriented x3 and CN's II-XII intact bilaterally Sensorium / Orientation: awake and alert Psych affect normal Weight / BMI Weight Weight: 234 lb 2.095 oz Body Mass Index (BMI) 33.5 ABG / Lab / Microbiology Data Result Diagrams: 07/31/20 04:58 07/31/20 04:58 Laboratory: Laboratory Results - last 24 hr 07/30/20 07/30/20 07/30/20 15:50 15:50 15:50 WBC 5.6 RBC 4.29 L Hgb 11.4 L Hct 37.1 L MCV 86.5 MCH 26.6 L MCHC 30.7 L RDW Std Deviation 68.5 H RDW Coeff of Cinda 22.0 H Plt Count 167 MPV 10.1 Immature Gran % (Auto) 0.500 Neut % (Auto) 75.9 H Lymph % (Auto) 15.0 L Knott % (Auto) 6.4 Eos % (Auto) 2.0 Baso % (Auto) 0.2 Absolute Neuts (auto) 4.2 Absolute Lymphs (auto) 0.84 Nucleated RBC % 0 Diff Path Review Platelet Estimate ADEQUATE RBC Morphology N CHROM Anisocytosis 1+ Ovalocytes 1+ Sodium 138 Potassium 3.9 Chloride 100 Carbon Dioxide 32.0 Anion Gap 6 BUN 14 Creatinine 0.93 Estim Creat Clear Calc 76.31 Est GFR (MDRD) Af Amer 103 Est GFR (MDRD) Non-Af 85 BUN/Creatinine Ratio 15.0 Glucose 359 H Calcium 8.5 Troponin I < 0.015 B-Natriuretic Peptide 96.4 POC Glucose 07/30/20 07/30/20 07/31/20 22:04 23:00 01:55 WBC RBC Hgb Hct MCV MCH MCHC RDW Std Deviation RDW Coeff of Cinda Plt Count MPV Immature Gran % (Auto) Neut % (Auto) Lymph % (Auto) Knott % (Auto) Eos % (Auto) Baso % (Auto) Absolute Neuts (auto) Absolute Lymphs (auto) Nucleated RBC % Diff Path Review Platelet Estimate RBC Morphology Anisocytosis Ovalocytes Sodium Potassium Chloride Carbon Dioxide Anion Gap BUN Creatinine Estim Creat Clear Calc Est GFR (MDRD) Af Amer Est GFR (MDRD) Non-Af BUN/Creatinine Ratio Glucose Calcium Troponin I < 0.015 < 0.015 B-Natriuretic Peptide POC Glucose 356 H 07/31/20 07/31/20 07/31/20 04:58 04:58 04:58 WBC 3.7 L RBC 4.32 L Hgb 11.6 L Hct 37.3 L MCV 86.3 MCH 26.9 L MCHC 31.1 L RDW Std Deviation 67.5 H RDW Coeff of Cinda 21.7 H Plt Count 150 MPV 9.6 Immature Gran % (Auto) 0.300 Neut % (Auto) 90.7 H Lymph % (Auto) 7.9 L Knott % (Auto) 1.1 Eos % (Auto) 0.0 Baso % (Auto) 0.0 Absolute Neuts (auto) 3.3 Absolute Lymphs (auto) 0.29 L Nucleated RBC % 0 [address] Review May foll Platelet Estimate RBC Morphology Anisocytosis Ovalocytes Sodium 138 Potassium 4.8 Chloride 99 Carbon Dioxide 34.0 H Anion Gap 5 BUN 17 Creatinine 0.93 Estim Creat Clear Calc 76.31 Est GFR (MDRD) Af Amer 104 Est GFR (MDRD) Non-Af 86 BUN/Creatinine Ratio 18.3 Glucose 359 H Calcium 8.7 Troponin I < 0.015 B-Natriuretic Peptide POC Glucose 07/31/20 08:04 WBC RBC Hgb Hct MCV MCH MCHC RDW Std Deviation RDW Coeff of Cinda Plt Count MPV Immature Gran % (Auto) Neut % (Auto) Lymph % (Auto) Knott % (Auto) Eos % (Auto) Baso % (Auto) Absolute Neuts (auto) Absolute Lymphs (auto) Nucleated RBC % Diff Path Review Platelet Estimate RBC Morphology Anisocytosis Ovalocytes Sodium Potassium Chloride Carbon Dioxide Anion Gap BUN Creatinine Estim Creat Clear Calc Est GFR (MDRD) Af Amer Est GFR (MDRD) Non-Af BUN/Creatinine Ratio Glucose Calcium Troponin I B-Natriuretic Peptide POC Glucose 327 H Radiography Diagnostic Testing: Radiology Impression Chest X-Ray 07/30/20 16:06 IMPRESSION: No acute findings. Electronically Signed: Kim Mendoza MD at 16:47 EDT Tel , Service support , D/C Instructions Discharge Diet: 2000 mg Sodium Diet Discharge Activity: Return to Normal Activity Weight Bearing Status: Weight bearing as tolerated Call your doctor if you observe: Fever of 101 or Higher, Shortness of breath, Swelling in the ankles and Increased palpitations (irregular heartbeat) Meaningful Use Info Meaningful Use Diagnoses (Choose all that apply): None applicable Discharge Plan Admission Admit Date/Time: 07/30/20 20:42 Primary Reason for Your Visit: COPD exacerbation Attending Provider: Patito Barnes Primary Care Provider: [facility] Instructions Patient Instructions: ED Chest Pain, Noncardiac Discharge Orders/Prescriptions Prescriptions: New prednisone 20 mg tablet 40 mg PO DAILY Qty: 10 RF: 0 Continued atorvastatin 80 MG tablet 80 mg PO QHS RF: 0 clopidogrel 75 MG tablet 75 mg PO DAILY RF: 0 aspirin 81 MG tablet 81 mg PO DAILY@0800 RF: 0 finasteride 5 MG tablet 5 mg PO DAILY RF: 0 escitalopram oxalate 10 MG tablet 10 mg PO DAILY RF: 0 cholecalciferol (vitamin D3) [Vitamin D3] 1,000 UNIT tablet 3,000 units PO DAILY RF: 0 Humulin R U-500 (Conc) Kwikpen 500 UNIT/ML insulin pen 120 unit SQ BREAKFAST RF: 0 Humulin R U-500 (Conc) Kwikpen 500 UNIT/ML insulin pen 120 unit SQ DINNER RF: 0 nitroglycerin 0.4 MG tablet, sublingual 0.4 mg sublingual Q5M PRN (Reason: Chest Pain) Qty: 30 RF: 0 albuterol sulfate 1 INHALER inhaler 1 - 2 puff INHALATION 4X/DAY PRN PRN (Reason: Sob &/Or Wheezing) RF: 0 tamsulosin 0.4 MG capsule 0.4 mg PO QHS Qty: 30 RF: 0 pantoprazole 40 MG tablet 40 mg PO BID RF: 0 tiotropium bromide 2.5 mcg/actuation Mist 2 puff INHALATION DAILY RF: 0 carvedilol 25 MG tablet 25 mg PO BID RF: 0 multivitamin Tablet 1 tab PO DAILY RF: 0 furosemide 40 mg Tablet 40 mg PO DAILY RF: 0 potassium chloride [Klor-Con M20] 20 mEq Tablet,Er Particles/Crystals 20 meq PO DAILY RF: 0 ranolazine 500 mg Tablet Extended Release 12 Hr 500 mg PO BID RF: 0 acetaminophen [Tylenol] 325 MG tablet 325 mg PO Q6H PRN PRN (Reason: Mild pain 1-3/Temp > 100.7 F) RF: 0 ferrous sulfate 325 mg (65 mg iron) tablet 325 mg PO BID Qty: 60 RF: 0 guaifenesin 100 mg/5 mL Liquid 100 - 200 mg PO TID PRN (Reason: Cough) RF: 0 [facility] - Disposition Disposition (needs filled in before D/C Order can be placed): Home, self care Charges/Coding Visit Charges OBSV E&M: 14841 Observation care discharge
[2020-07-31] MEDS: Acetaminophen 325 MG Tablet PO (11:18)
[2020-07-31] MEDS: Ferrous Sulfate 325 MG Tablet PO (11:18)
--- NOTE | 2020-07-31 11:38 | CASEMGMT ---
Pt does not qualify for increased home oxygen at this time. Call to Sharla at [facility] and pt is still active with them for SN but only every other week per pt request as pr refuses HHC therapy once again. Sharla states that their palliative physician has not been able to get ahold of pt/ but the next time the nurse is out, they will get ahold of palliative physician and set up appt for him to see pt. Sharla is aware that pt will be discharging today, voices understanding. NAWAF order, H&P, facesheet and d/c summary faxed to [facility]. CM to follow for any further discharge planning/needs. SStzeynep RN CM
[2020-07-31 12:53] LABS: Pathologist Review Reviewed
--- NOTE | 2020-07-31 15:16 | CASEMGMT ---
Readmission chart review: Pt well known to this RN CM as this is pt's 7th admission to PCU this year. Pt was admitted 06/22-06/23/20 for COPD/SOB/Anemia then again on 07/05-07/06/20 for CP, syncope. Pt has been active with [facility] for awhile and is only active for SN as pt refuses therapy. Pt returned to [facility] ED on 07/30/20 for SOB. Pt was 99% on 3L nc and pt's order is for 4L continuous at home, but not sure how compliant pt is with oxygen at home. Per [facility], pt is only allowing SN to come out every other week at this time. The [facility] palliative physician has been attempting to reach pt for an appt without success but the next time the [facility] nurse goes out, they will call palliative and set up appt at that time. CM to follow for any further discharge planning/needs. SStaten KRISTI GERONIMO
--- NOTE | 2020-08-01 10:27 | NURSING ---
FRANCO DC F/u Call: DC Date: 07/31/20 DC Diagnosis: (1) Acute dyspnea (2) Acute and chronic respiratory failure DC Disposition: Home Lace/Strata: 29/05 Called patient's listed cell phone number in demographics, patient answered, this advertising copywriter introduced self and role. Patient states that he is feeling fine and confirmed her was able to pick and shovel man his DC medication. Denies any questions, issues, or concerns with ACI, Medications, or F/u. Thanked patient for choosing [facility] for care needs and phone conversation was ended. FRANCO Swann
== END 2020-07-31 12:50 | disposition home or self-care (01) | DRG 190 ==
LOC: ED 20:23 → PCU 21:02
PROVIDERS: Admitting Provider Family Medicine; Emergency Provider Student in an Organized Health Care Education/Training Program; Visit Provider Student in an Organized Health Care Education/Training Program
DX: J44.1 Chronic obstructive pulmonary disease with (acute) exacerbation (principal); J96.21 Acute and chronic respiratory failure with hypoxia; G47.33 Obstructive sleep apnea (adult) (pediatric); I10 Essential (primary) hypertension; E11.9 Type 2 diabetes mellitus without complications; I25.119 Atherosclerotic heart disease of native coronary artery with unspecified angina pectoris; E78.5 Hyperlipidemia, unspecified; Z86.73 Personal history of transient ischemic attack (TIA), and cerebral infarction without residual deficits; E66.9 Obesity, unspecified; Z95.5 Presence of coronary angioplasty implant and graft; Z95.1 Presence of aortocoronary bypass graft; Z68.34 Body mass index [BMI] 34.0-34.9, adult; Z79.02 Long term (current) use of antithrombotics/antiplatelets; Z79.4 Long term (current) use of insulin; Z79.82 Long term (current) use of aspirin; Z87.891 Personal history of nicotine dependence; Z88.8 Allergy status to other drugs, medicaments and biological substances; Z90.49 Acquired absence of other specified parts of digestive tract; Z95.0 Presence of cardiac pacemaker; Z97.4 Presence of external hearing-aid; Z96.652 Presence of left artificial knee joint
CPT/HCPCS: 36415; 71045; 80048; 82962; 83880; 84484; 85025; 93005; 94002; 94003; 94640; 99251; 99285; J7050; A4216; G0463; J2405

== ENCOUNTER 2020-08-06 16:57 | Emergency (ER) | payer OTHER, SELFPAY ==
[2020-07-30 21:39] VITALS: BMI 33.5
[2020-08-06 16:58] VITALS: BP 123/64; PULSE 65; RESP 18; TEMP 36.6; O2SAT 92; BMI 33.4
[2020-08-06 17:13] LABS: Bacteria 0 SEEN /hpf (None Seen); Mucous, Urine 0 SEEN /hpf (<or=2+); Red Blood Cells-Urine 0 SEEN /hpf (0-5); White Blood Cells 0 SEEN /hpf (0-5)
[2020-08-06 17:24] LABS: Color, Urine Yellow (Yellow); Glucose, Dipstick 1000 mg/dl (Normal); Ketone-Dipstick Negative (Negative); Leukocyte Esterase-Dipstick Negative /ul (Negative); Nitrite-Dipstick Negative (Negative); Occult Blood-Urine Negative /ul (Negative); Protein-Dipstick 30 mg/dl (Negative); Urine Bilirubin Dipstick Negative (Negative); Urine Clarity Sl. Cloudy (Clear); Urine Urobilinogen Normal (Normal)
[2020-08-06 17:38] LABS: Amorphous Sediment 1+ URATE; Squamous Epithelial Cells - UA 0-5 SEEN /hpf (0-5)
--- NOTE | 2020-08-06 19:21 | EKG12_ITS ---
Test Reason : DYSRHYTHMIA Blood Pressure : / mmHG Vent. Rate : 060 BPM Atrial Rate : 060 BPM P-R Int : 228 ms QRS Dur : 120 ms QT Int : 454 ms P-R-T Axes : 093 -39 091 degrees QTc Int : 454 ms Atrial-paced rhythm with prolonged AV conduction Left axis deviation Non-specific intra-ventricular conduction delay Nonspecific ST and T wave abnormality Abnormal ECG Confirmed by YUNI GUALLPA, JOANNA ([id number]), associate entertainment editor NADINE FERRER ([id number]) on 08/08/2020 9:26:17 AM Referred By: ELPIDIO Confirmed By:JOANNA MORRISSEY MD
--- NOTE | 2020-08-06 19:23 | EX.ED.DYSGE1 ---
HPI History of Present Illness Chief Complaint: Hyperglycemia Informant: patient and spouse/S.O. Onset/Context/Timing Onset: Weeks Narrative Narrative: Patient presents secondary to elevated blood sugar. Patient was in [place] having test done at the [facility] today. He states on the way home his doctor called him told him his blood sugar was in the 400s and he should go to the emergency room. Patient states that blood sugars have been running in the 400s lately. He states it has been like this for several weeks. They had switched him to a concentrated insulin and states that for a while his blood sugars were down into the 200s. Lately has been climbing again and he is unsure why. His only complaint at this time is chronic chest pain. He does not report increased thirst or urination. 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 BiPAP (biphasic positive airway pressure) dependence Chronic respiratory failure Diabetes Essential (primary) hypertension History of fractured rib Hyperlipidemia Obesity EKATERINA (obstructive sleep apnea) Stroke/cerebrovascular accident Wears hearing aid in both ears Home Medications Humulin R U-500 (Conc) Kwikpen 120 unit SQ BREAKFAST 06/11/18 [History Last Taken 07/05/20] Humulin R U-500 (Conc) Kwikpen 120 unit SQ DINNER 06/11/18 [History Last Taken 07/04/20] aspirin 81 mg PO DAILY@0800 06/11/18 [History Last Taken 07/05/20] atorvastatin 80 mg PO QHS 06/11/18 [History Last Taken 07/04/20] cholecalciferol (vitamin D3) [Vitamin D3] 3,000 units PO DAILY 06/11/18 [History Last Taken 07/04/20] clopidogrel 75 mg PO DAILY 06/11/18 [History Last Taken 07/05/20] escitalopram oxalate 10 mg PO DAILY 06/11/18 [History Last Taken 07/05/20] finasteride 5 mg PO DAILY 06/11/18 [History Last Taken 07/05/20] nitroglycerin 0.4 mg SUBLINGUAL Q5M PRN #30 tablet 07/22/18 [Rx Last Taken 01/17/20] albuterol sulfate 1 - 2 puff INHALATION 4X/DAY PRN PRN 04/08/20 [History Last Taken 07/05/20] tamsulosin 0.4 mg PO QHS #30 cap 04/10/20 [Rx Last Taken 07/04/20] pantoprazole 40 mg PO BID 05/18/20 [History Last Taken 07/05/20] acetaminophen [Tylenol] 325 mg PO Q6H PRN PRN 06/22/20 [History Last Taken 07/05/20] carvedilol 25 mg PO BID 06/22/20 [History Last Taken 07/05/20] furosemide 40 mg PO DAILY 06/22/20 [History Last Taken 07/05/20] multivitamin 1 tab PO DAILY 06/22/20 [History Last Taken 07/04/20] potassium chloride [Klor-Con M20] 20 meq PO DAILY 06/22/20 [History Last Taken 07/05/20] ranolazine 500 mg PO BID 06/22/20 [History Last Taken 07/05/20] tiotropium bromide 2 puff INHALATION DAILY 06/22/20 [History Last Taken 07/05/20] ferrous sulfate 325 mg PO BID #60 tab 06/23/20 [Rx Last Taken 07/05/20] guaifenesin 100 - 200 mg PO TID PRN 07/05/20 [History Last Taken 07/04/20] prednisone 40 mg PO DAILY #10 tab 07/31/20 [Rx Last Taken Unknown] Allergy/AdvReac Type Severity Reaction Status Date / Time ezetimibe Allergy Unknown Verified 08/06/20 17:01 Fish Containing Products Allergy Unknown Verified 08/06/20 17:01 glyburide Allergy Unknown Verified 08/06/20 17:01 isosorbide Allergy PT UNSURE Verified 08/06/20 17:01 OF REACTION lisinopril Allergy Unknown Verified 08/06/20 17:01 metformin Allergy Nausea Verified 08/06/20 17:01 metoprolol Allergy Unknown Verified 08/06/20 17:01 simvastatin Allergy Unknown Verified 08/06/20 17:01 Family History Father No problems noted. Surgical History H/O coronary artery bypass surgery History of cholecystectomy History of cholecystectomy History of coronary artery stent placement History of knee replacement procedure of left knee History of permanent cardiac pacemaker placement (09/10/11) Social History household members: spouse Smoking Status: Former smoker substance use type: does not use ROS ROS ED Constitutional Constitutional ED: Denies chills or fever(s) Eyes Eyes: Denies change in vision ENT ENT ED: Denies sore throat Cardiovascular Cardiovascular: Reports chest pain Respiratory/Chest Respiratory/Chest: Denies cough or dyspnea Gastrointestinal Gastrointestinal: Denies abdominal pain, diarrhea, nausea or vomiting Genitourinary Genitourinary ED: Denies dysuria Musculoskeletal Musculoskeletal: Denies back pain Integumentary Denies rash Neurologic Neurologic: Denies headache(s) or weakness Psychiatric Psychiatric: Denies anxiety or depression Endocrine Endocrinology: Denies polydipsia or polyuria Allergic/Immunologic Allergic/Immunologic ED: Denies urticaria EXAM Physical Exam Const Vital Signs: 08/06/20 16:58 08/06/20 19:41 08/06/20 21:30 Temperature 98 F 98 F Temperature Source Temporal Temporal Pulse Rate 65 61 65 Respiratory Rate 18 18 19 H Respiratory Effort Normal Blood Pressure 123/64 H 150/69 H 158/78 H Blood Pressure Mean 83 96 104 Pulse Ox 92 92 89 Oxygen Delivery Method Room Air Room Air Room Air Positive well nourished and well developed General Appearance ED: well developed HEENT Reports normocephalic and head/scalp atraumatic Eyes PERRL and EOMs intact bilaterally Neck supple Chest Wall inspection of chest normal and palpation of chest normal Resp normal respiratory effort and clear to auscultation bilaterally Cardio regular rate and regular rhythm GI normal to inspection, nondistended, normoactive bowel sounds Palpation: soft Back/Spine no CVA tenderness Extremity normal to inspection Neuro oriented x3 Neuro Narrative: No focal neurologic deficits. Sensorium / Orientation: alert Psych mental status grossly normal Skin no rashes or lesions noted MDM MDM MDM Narrative Medical decision making narrative: Lab work, EKG obtained. Lab Data Attestation: I reviewed the patient's lab results. Labs: Laboratory Results - last 24 hr 08/06/20 08/06/20 08/06/20 17:00 19:40 19:40 WBC 6.7 RBC 4.77 Hgb 13.1 Hct 41.6 MCV 87.2 MCH 27.5 MCHC 31.5 L RDW Std Deviation 69.3 H RDW Coeff of Cinda 21.7 H Plt Count 177 MPV 9.7 Immature Gran % (Auto) 0.300 Neut % (Auto) 70.2 H Lymph % (Auto) 19.9 [place] % (Auto) 7.6 Eos % (Auto) 1.9 Baso % (Auto) 0.1 Absolute Neuts (auto) 4.7 Absolute Lymphs (auto) 1.33 Nucleated RBC % 0 Anisocytosis 1+ Sodium 138 Potassium 3.5 Chloride 96 L Carbon Dioxide 34.0 H Anion Gap 8 BUN 22 H Creatinine 1.17 Estim Creat Clear Calc 60.66 Est GFR (MDRD) Af Amer 79 Est GFR (MDRD) Non-Af 66 BUN/Creatinine Ratio 18.8 Glucose 541 H* Calcium 8.2 L Urine Color Yellow Urine Clarity Sl. Cloudy Urine pH 6.0 Ur Specific [place] 1.010 Urine Protein 30 H Urine Glucose (UA) 1000 H Urine Ketones Negative Urine Occult Blood Negative Urine Nitrite Negative Urine Bilirubin Negative Urine Urobilinogen Normal Ur Leukocyte Esterase Negative Urine RBC 0 SEEN Urine WBC 0 SEEN Ur Squamous Epith Cells 0-5 SEEN Amorphous Sediment 1+ URATE Urine Bacteria 0 SEEN Urine Mucus 0 SEEN Acetone Level 08/06/20 19:40 WBC RBC Hgb Hct MCV MCH MCHC RDW Std Deviation RDW Coeff of Cinda Plt Count MPV Immature Gran % (Auto) Neut % (Auto) Lymph % (Auto) [place] % (Auto) Eos % (Auto) Baso % (Auto) Absolute Neuts (auto) Absolute Lymphs (auto) Nucleated RBC % Anisocytosis Sodium Potassium Chloride Carbon Dioxide Anion Gap BUN Creatinine Estim Creat Clear Calc Est GFR (MDRD) Af Amer Est GFR (MDRD) Non-Af BUN/Creatinine Ratio Glucose Calcium Urine Color Urine Clarity Urine pH Ur Specific [place] Urine Protein Urine Glucose (UA) Urine Ketones Urine Occult Blood Urine Nitrite Urine Bilirubin Urine Urobilinogen Ur Leukocyte Esterase Urine RBC Urine WBC Ur Squamous Epith Cells Amorphous Sediment Urine Bacteria Urine Mucus Acetone Level NEGATIVE EKG Initial EKG: Attestation: I personally reviewed and interpreted this EKG as follows: Interpretation: Paced (AV paced at 60. No acute ischemia.) Treatment and Re-Evaluation Comments:: Patient was given IV fluids and upon completion of labs 15 units of lispro. Blood sugar has come from 540 down to 430. Patient will take his normal evening insulin tonight when he gets home. No sign of renal injury or DKA. Patient encouraged to follow-up with his doctor regarding adjustment of his home insulin if he continues to run high. Discharge Plan Triage Chief Complaint: Hyperglycemia ED Provider: Elodia Good Dx/Rx/DC Orders Clinical Impression: Hyperglycemia Instructions: ED Diabetic Hyperglycemia Prescriptions: No Action atorvastatin 80 MG tablet 80 mg PO QHS RF: 0 clopidogrel 75 MG tablet 75 mg PO DAILY RF: 0 aspirin 81 MG tablet 81 mg PO DAILY@0800 RF: 0 finasteride 5 MG tablet 5 mg PO DAILY RF: 0 escitalopram oxalate 10 MG tablet 10 mg PO DAILY RF: 0 cholecalciferol (vitamin D3) [Vitamin D3] 1,000 UNIT tablet 3,000 units PO DAILY RF: 0 Humulin R U-500 (Conc) Kwikpen 500 UNIT/ML insulin pen 120 unit SQ BREAKFAST RF: 0 Humulin R U-500 (Conc) Kwikpen 500 UNIT/ML insulin pen 120 unit SQ DINNER RF: 0 nitroglycerin 0.4 MG tablet, sublingual 0.4 mg sublingual Q5M PRN (Reason: Chest Pain) Qty: 30 RF: 0 albuterol sulfate 1 INHALER inhaler 1 - 2 puff INHALATION 4X/DAY PRN PRN (Reason: Sob &/Or Wheezing) RF: 0 tamsulosin 0.4 MG capsule 0.4 mg PO QHS Qty: 30 RF: 0 pantoprazole 40 MG tablet 40 mg PO BID RF: 0 tiotropium bromide 2.5 mcg/actuation Mist 2 puff INHALATION DAILY RF: 0 carvedilol 25 MG tablet 25 mg PO BID RF: 0 multivitamin Tablet 1 tab PO DAILY RF: 0 furosemide 40 mg Tablet 40 mg PO DAILY RF: 0 potassium chloride [Klor-Con M20] 20 mEq Tablet,Er Particles/Crystals 20 meq PO DAILY RF: 0 ranolazine 500 mg Tablet Extended Release 12 Hr 500 mg PO BID RF: 0 acetaminophen [Tylenol] 325 MG tablet 325 mg PO Q6H PRN PRN (Reason: Mild pain 1-3/Temp > 100.7 F) RF: 0 ferrous sulfate 325 mg (65 mg iron) tablet 325 mg PO BID Qty: 60 RF: 0 guaifenesin 100 mg/5 mL Liquid 100 - 200 mg PO TID PRN (Reason: Cough) RF: 0 prednisone 20 mg tablet 40 mg PO DAILY Qty: 10 RF: 0 [facility] Provider] - As soon as possible Disposition Disposition: Home, self care
[2020-08-06 19:41] VITALS: BP 150/69; PULSE 61; RESP 18; RESP 22; TEMP 36.6; O2SAT 91; O2SAT 92
[2020-08-06 19:45] LABS: Absolute Lymphocyte Count 1.33 X10^3/uL (0.83-4.51); Absolute Neutrophil Count 4.7 X10^3/uL (2.0-7.7); Basophil# 0.01 X10^3/uL; Basophil% 0.1 % (0-1); Eosinophil# 0.13 X10^3/uL; Eosinophils% 1.9 % (0-5); Hematocrit 41.6 % (40-54); Hemoglobin 13.1 g/dL (13.0-16.5); Lymphocyte # 1.33 X10^3/ul (0.83-4.51); Lymphocyte % 19.9 % (19-41); Mean Corp Hgb Conc 31.5 g/dL (32-36); Mean Corpuscular Hgb 27.5 pg (27.0-32.0); Mean Corpuscular Volume 87.2 fL (80-94); Mean Platelet Vol. 9.7 fl (6.2-12.0); Monocyte# 0.51 X10^3/uL; Monocyte% 7.6 % (0-10); NRBC Flagged by Analyzer 0 % (0-5); Neutrophil # 4.69 X10^3/uL (2.7-7.7); Neutrophil % 70.2 % (47-70); POSITIVE MORPHOLOGY YES; Platelet Count 177 K/mm3 (150-450); RBC Distribution Width CV 21.7 % (11.6-14.6); RBC Distribution Width SD 69.3 fl (35.1-43.9); Red Blood Count 4.77 M/mm3 (4.6-6.2); White Blood Count 6.7 K/mm3 (4.4-11.0)
[2020-08-06 19:47] LABS: Differential Indicated SCAN CRITERIA MET
[2020-08-06 20:03] LABS: Anisocytosis 1+
[2020-08-06 20:07] LABS: Anion Gap 8 (5-15); BUN 22 mg/dL (7-18); BUN/Creat Ratio 18.8 RATIO (10-20); Calcium,Total 8.2 mg/dL (8.5-10.1); Chloride 96 mmol/L (98-107); Creatinine, Serum 1.17 mg/dL (0.70-1.30); EST Glomerular Filtration Rate 66 mL/min (>60); Est Glom Filt Rate - Afr Amer 79 mL/min (>60); Estimated Creatinine Clearance 60.66 ml/min; Glucose 541 mg/dL (74-106); Potassium 3.5 mmol/L (3.5-5.1); Sodium Level 138 mmol/L (136-145)
[2020-08-06] MEDS: Insulin Lispro 100 UNIT/ML INSULN.PEN 15 UNIT SC (20:43)
--- NOTE | 2020-08-06 20:50 | ED.RN ---
PT educated to take all medications including insulin when he gets home tonight. PT asked if he could have pop when he gets home. I asked what kind, he listed several non-diet pops. PT informed those are not recommended for diabetic patients. PT encouraged to drink water.
[2020-08-06 21:30] VITALS: BP 158/78; PULSE 65; RESP 19; O2SAT 89
[2020-08-06 22:20] VITALS: BP 149/76; PULSE 63; RESP 20; O2SAT 92
[2020-08-07 08:38] LABS: Bedside Glucose 437 mg/dL (70-110)
[2020-08-07 08:38] LABS: Bedside Glucose 458 mg/dL (70-110)
[2020-08-07 08:38] LABS: Bedside Glucose > 500 mg/dL (70-110)
== END 2020-08-06 22:21 | disposition home or self-care (01) ==
PROVIDERS: Emergency Provider Emergency Medicine
DX: E11.65 Type 2 diabetes mellitus with hyperglycemia (principal); I25.10 Atherosclerotic heart disease of native coronary artery without angina pectoris; I10 Essential (primary) hypertension; E78.5 Hyperlipidemia, unspecified; G47.33 Obstructive sleep apnea (adult) (pediatric); J96.10 Chronic respiratory failure, unspecified whether with hypoxia or hypercapnia; Z86.73 Personal history of transient ischemic attack (TIA), and cerebral infarction without residual deficits; Z87.891 Personal history of nicotine dependence; G89.29 Other chronic pain; D64.9 Anemia, unspecified; Z79.4 Long term (current) use of insulin; Z79.52 Long term (current) use of systemic steroids; Z79.82 Long term (current) use of aspirin; Z79.899 Other long term (current) drug therapy
CPT/HCPCS: 80048; 81001; 82009; 82962; 85025; 93005; 99285; J7030

== ENCOUNTER 2020-08-10 14:58 | Inpatient (IN) | payer OTHER, MEDICARE, SELFPAY ==
[2020-08-10] VITALS (12 sets, daily range): BP systolic 105–171; BP diastolic 51–83; PULSE 60–91; RESP 13–24; TEMP 36.5–36.7; O2SAT 93–99; BMI 33.6; BMI 33.0
--- NOTE | 2020-08-10 15:21 | RAD_ITS ---
STUDY: X-RAY CHEST REASON FOR EXAM: Male, 70 years old. Neuro deficit, acute, stroke suspected TECHNIQUE: 1 view COMPARISON: Prior chest radiograph 07/30/2020 FINDINGS: The lung flores remain well expanded without new consolidation, focal atelectasis or substantial pleural effusion. Pleural changes on the left secondary to numerous prior rib fractures and plate and screw fixation of 5 RIBS. Stable cardiac size status post prior midline sternotomy. Right atrial and ventricular pacemaker leads remain in good position. Normal visualized pulmonary arteries. Normal visualized aortic arch and descending thoracic aorta. Normal visualized thoracic spine. Multiple prior healed left rib fractures. Prior healed right clavicle fracture. There is no demonstrated abnormality of the visualized soft tissue structures of the upper abdomen. RAD/Chest 1 View IMPRESSION: No acute cardiopulmonary findings or changes. Negative for new consolidation, atelectasis or pleural effusion. Stable cardiac size status post prior midline sternotomy. Right atrial and ventricular pacemaker leads remain in good position. Electronically Signed: Josie Murray MD at 17:00 EDT , Service support ,
--- NOTE | 2020-08-10 15:21 | CT_ITS ---
We are attempting to reach an attending provider to discuss findings. An addendum with communication details will be sent when the communication is complete. STUDY: CTA HEAD AND NECK WITH CONTRAST REASON FOR EXAM: Male, 70 years old. Neuro deficit, acute, stroke suspected RADIATION DOSAGE (If Supplied By Facility): CTDIvol = ( 39.09 ) mGy, DLP = ( 1060.75 ) mGycm TECHNIQUE: CT angiography was performed with a multi-detector CT scanner. Data acquisition was obtained from the skull base through the vertex following intravenous administration of IV 100ML ISOVUE 370. MIP images were reconstructed from the axial data set. Post-processing of the angiographic images was performed, with multiplanar reformation and 3D reconstruction. Individualized dose optimization techniques were used for this CT. COMPARISON: No relevant priors. FINDINGS: Normal bilateral petrous carotid arteries. Normal right cavernous carotid artery with a normal supraclinoid bifurcation. Normal left cavernous carotid artery with a normal supraclinoid bifurcation. Normal right A1 segments of the anterior cerebral artery. Normal left A1 segments of the anterior cerebral artery. Normal intact anterior communicating artery (ACOM). Normal bilateral A2 segments of the anterior cerebral arteries. Normal right M1 and M2 segments of the middle cerebral arteries, with a normal M1 bifurcation. Normal left M1 and M2 segments of the middle cerebral arteries, with a normal M1 bifurcation. Normal right posterior communicating artery (PCOM). Normal left posterior communicating artery (PCOM). Normal bilateral vertebral arteries. Normal basilar artery with a normal basilar bifurcation. The visualized bilateral superior cerebellar (SCA) arteries are normal. Normal bilateral P1, P2 and visualized P3 segments of the posterior cerebral arteries. There is no demonstrated aneurysm of the e[place] of [place]. There is no demonstrated abnormality of the visualized brain. AORTIC ARCH: Normal visualized aortic arch. Normal origins of the brachiocephalic, left common carotid, and left subclavian arteries. RIGHT CAROTID ARTERIES: Normal right common carotid artery (CCA). Normal right common carotid bulb. Normal origin of the right internal carotid (ICA) artery without a hemodynamically significant stenosis. Normal visualized cervical portion of the right internal carotid artery. Normal origin of the right external carotid artery (ECA). LEFT CAROTID ARTERIES: Normal left common carotid artery (CCA). Normal left common carotid bulb. Normal origin of the left internal carotid (ICA) artery without a hemodynamically significant stenosis. Normal visualized cervical portion of the left internal carotid artery. Normal origin of the left external carotid artery (ECA). VERTEBRAL ARTERIES: Normal bilateral vertebral arteries. CT/STROKE CTA Head AND Neck W/Con IMPRESSION: Normal CTA Head and neck with contrast. Electronically Signed: Ijeoma Beckett, at 15:53 EDT Tel , Service support ,
--- NOTE | 2020-08-10 15:21 | EKG12_ITS ---
Test Reason : STROKE Blood Pressure : / mmHG Vent. Rate : 060 BPM Atrial Rate : 059 BPM P-R Int : 300 ms QRS Dur : 122 ms QT Int : 474 ms P-R-T Axes : 000 -17 089 degrees QTc Int : 474 ms Electronic Atrial Pacemaker NS IVCD Nonspecific ST and T wave abnormality Abnormal ECG Confirmed by YUNI GUALLPA, JOANNA ([id number]), restaurant expeditor NADINE FERRER ([id number]) on 08/14/2020 7:02:01 AM Referred By: DON Confirmed By:JOANNA MORRISSEY MD
--- NOTE | 2020-08-10 15:21 | CT_ITS ---
We are attempting to reach an attending provider to discuss findings. An addendum with communication details will be sent when the communication is complete. STUDY: CT HEAD STROKE PROTOCOL W/O CONTRAST INJECTION REASON FOR EXAM: Male, 70 years old. Neuro deficit, acute, stroke suspected RADIATION DOSAGE (If Supplied By Facility): CTDIvol = ( ) mGy, DLP = ( ) mGycm TECHNIQUE: Transaxial CT imaging of the brain was performed without administration of intravenous contrast material. Individualized dose optimization techniques were used for this CT. COMPARISON: No relevant priors. FINDINGS: The ventricular system and cerebral sulci are within normal limits. There is no evidence of increased or decreased brain density. No epidural, subdural or intracerebral hematoma seen. No dense MCA sign. If stroke is suspected. Diffusion MRI is highly recommended. Otherwise the orbits and sinuses as well as mastoid air cells are unremarkable. CT/STROKE Brain/Head without Cont IMPRESSION: Normal unenhanced CT scan of the brain. Electronically Signed: Ijeoma Beckett, at 15:41 EDT Tel , Service support ,
--- NOTE | 2020-08-10 15:22 | EDS_ITS ---
HPI History of Present Illness Chief Complaint: Weakness Detail of Chief Complaint: Presents to the emergency department with complaint of weakness and an unre Informant: patient and spouse/S.O. Narrative Narrative: Patient presents to the emergency department via EMS from home. states that this afternoon he would not respond to her while he was in bed. Patient noted to have slurred speech on arrival of the emergency department and states that she noticed that this morning at around 7 AM and this is unusual for him. Patient had an ER visit to our department 4 days ago and was discharged to home at that time had elevated blood sugars. Patient was seen by his [place] doctor 2 days ago and sent to [place] [facility] where they apparently ruled out stroke. Patient cannot have an MRI because of history of pacemaker. 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 states that yesterday he was doing well and actually was able to cut the grass. Patient complaining of some chest discomfort at this time. Prior similar symptoms: Yes PFSH PFS Medical History Abnormal EKG Anemia Atherosclerotic heart disease [place] coronary artery w/angina pectoris BiPAP (biphasic positive airway pressure) dependence Chronic respiratory failure Diabetes Essential (primary) hypertension History of fractured rib Hyperlipidemia Obesity EKATERINA (obstructive sleep apnea) Stroke/cerebrovascular accident Wears hearing aid in both ears Home Medications Humulin R U-500 (Conc) Kwikpen 120 unit SQ BREAKFAST 06/11/18 [History Last Taken 07/05/20] Humulin R U-500 (Conc) Kwikpen 120 unit SQ DINNER 06/11/18 [History Last Taken 07/04/20] aspirin 81 mg PO DAILY@0800 06/11/18 [History Last Taken 07/05/20] atorvastatin 80 mg PO QHS 06/11/18 [History Last Taken 07/04/20] cholecalciferol (vitamin D3) [Vitamin D3] 3,000 units PO DAILY 06/11/18 [History Last Taken 07/04/20] clopidogrel 75 mg PO DAILY 06/11/18 [History Last Taken 07/05/20] escitalopram oxalate 10 mg PO DAILY 06/11/18 [History Last Taken 07/05/20] finasteride 5 mg PO DAILY 06/11/18 [History Last Taken 07/05/20] nitroglycerin 0.4 mg SUBLINGUAL Q5M PRN #30 tablet 07/22/18 [Rx Last Taken 01/17/20] albuterol sulfate 1 - 2 puff INHALATION 4X/DAY PRN PRN 04/08/20 [History Last Taken 07/05/20] tamsulosin 0.4 mg PO QHS #30 cap 04/10/20 [Rx Last Taken 07/04/20] pantoprazole 40 mg PO BID 05/18/20 [History Last Taken 07/05/20] acetaminophen [Tylenol] 325 mg PO Q6H PRN PRN 06/22/20 [History Last Taken 07/05/20] carvedilol 25 mg PO BID 06/22/20 [History Last Taken 07/05/20] furosemide 40 mg PO DAILY 06/22/20 [History Last Taken 07/05/20] multivitamin 1 tab PO DAILY 06/22/20 [History Last Taken 07/04/20] potassium chloride [Klor-Con M20] 20 meq PO DAILY 06/22/20 [History Last Taken 07/05/20] ranolazine 500 mg PO BID 06/22/20 [History Last Taken 07/05/20] tiotropium bromide 2 puff INHALATION DAILY 06/22/20 [History Last Taken 07/05/20] ferrous sulfate 325 mg PO BID #60 tab 06/23/20 [Rx Last Taken 07/05/20] guaifenesin 100 - 200 mg PO TID PRN 07/05/20 [History Last Taken 07/04/20] prednisone 40 mg PO DAILY #10 tab 07/31/20 [Rx Last Taken Unknown] Allergy/AdvReac Type Severity Reaction Status Date / Time ezetimibe Allergy Unknown Verified 08/10/20 15:00 Fish Containing Products Allergy Unknown Verified 08/10/20 15:00 glyburide Allergy Unknown Verified 08/10/20 15:00 isosorbide Allergy PT UNSURE Verified 08/10/20 15:00 OF REACTION lisinopril Allergy Unknown Verified 08/10/20 15:00 metformin Allergy Nausea Verified 08/10/20 15:00 metoprolol Allergy Unknown Verified 08/10/20 15:00 simvastatin Allergy Unknown Verified 08/10/20 15:00 Family History Father No problems noted. Surgical History H/O coronary artery bypass surgery History of cholecystectomy History of cholecystectomy History of coronary artery stent placement History of knee replacement procedure of left knee History of permanent cardiac pacemaker placement (09/10/11) Social History household members: spouse Smoking Status: Former smoker substance use type: does not use ROS ROS ED Constitutional Constitutional ED: Reports systems reviewed and no addt'l complaints, except as documented; Denies body ache(s), change in weight or chills Eyes Eyes: Denies acute decrease in peripheral vision, change in vision, double vision or loss of vision ENT ENT ED: Reports none; Denies ear pain, lip swelling, loss taste/smell, neck pain, otalgia or sore throat Cardiovascular Cardiovascular: Reports none and chest pain; Denies abdominal pain, chest pain with activity, leg edema, lightheadedness, palpitations, rapid heart rate or syncope Respiratory/Chest Respiratory/Chest: Reports none; Denies change in mental status, dry cough, dyspnea, hemoptysis, shortness of breath at rest or shortness of breath with exertion Gastrointestinal Gastrointestinal: Reports none; Denies abdominal pain, change in stool character, diarrhea, hematemesis, hematochezia, melena, rectal bleeding or vomiting Genitourinary Genitourinary ED: Reports none; Denies abdominal discomfort, anuria, dysuria, genital pain or polyuria Musculoskeletal Musculoskeletal: Reports none; Denies arthralgias, back pain, difficulty walking, extremity pain, muscle weakness or myalgias Integumentary Reports none; Denies abscess or rash Neurologic Neurologic: Reports none, weakness and other Details: Slurred speech ; Denies abnormal gait, confusion, focal weakness, frequent falls, headache(s), loss of vision, numbness, paresthesias, radicular pain or vertigo Psychiatric Psychiatric: Reports systems reviewed and no addt'l complaints, except as documented and none; Denies behavioral changes, confusion, difficulty concentrating, hallucinations, suicidal ideation, tactile hallucinations or visual hallucinations Endocrine Endocrinology: Denies none, cold intolerance, excessive sweating, fatigue or heat intolerance Hematologic/Lymphatic Hematologic/Lymphatic: Reports none; Denies anemia, easy bleeding or easy bruising Allergic/Immunologic Allergic/Immunologic ED: Denies as per HPI, none, lip swelling, mouth swelling, throat swelling, tongue swelling or hives EXAM Physical Exam Const Vital Signs: 08/10/20 15:01 08/10/20 15:38 08/10/20 16:00 Temperature 98.0 F Temperature Source Oral Pulse Rate 60 60 Respiratory Rate 24 H 17 Respiratory Effort Normal Non-Labored Respiratory Pattern Normal Blood Pressure 127/71 H 171/79 H Blood Pressure Mean 89 109 Pulse Ox 96 98 Oxygen Delivery Method Nasal Cannula Nasal Cannula Nasal Cannula Oxygen Flow Rate (L/min) 2 2 2 Positive well nourished and well developed General Appearance ED: well developed and NAD HEENT Reports TM's clear and moist mucous membranes normocephalic and atraumatic; Negative for trauma or tenderness Tympanic Membrane ED: Yes TM's clear Eyes PERRL and EOMs intact bilaterally General Eye ED: Negative for pale conjunctiva or scleral icterus Neck no lymphadenopathy, supple and no JVD General: Negative for tenderness Chest Wall inspection of chest normal and palpation of chest normal Chest: Negative for tenderness Resp normal respiratory effort and clear to auscultation bilaterally Effort and Inspection: Negative for respiratory distress or pain with movement Auscultation: Negative for rhonchi, wheezes or diminished lung sounds Cardio regular rate, regular rhythm, S1 normal heart sound, S2 normal heart sound and no murmurs Peripheral Pulses: pulses 2+ throughout GI normal to inspection, nondistended, normoactive bowel sounds, soft to palpation, non-tender, non-distended and no masses Back/Spine no CVA tenderness and no thoracic nor lumbar tenderness Extremity normal to inspection General Extremety ED: Negative for edema General Extremity: Negative for edema Neuro oriented x3, CN's II-XII intact bilaterally, no sensory deficits noted and gait normal Neuro Narrative: Patient with slurred speech as well as some subtle weakness of the left arm and left leg which I am told is chronic. His NIH stroke scale was a four for me. Sensorium / Orientation: awake, alert, oriented to person, oriented to place and oriented to time Motor Exam: strength abnormal Psych mental status grossly normal Skin no rashes or lesions noted and no wounds STROKE Vital Signs/Narrative: Vital Signs Temp Pulse Resp BP Pulse Ox 08/10/20 16:00 60 17 171/79 H 98 08/10/20 15:01 98.0 F 60 24 H 127/71 H 96 MDM MDM MDM Narrative Medical decision making narrative: Results discussed with patient. I discussed case with stroke neurologist as well. Patient is not a TPA candidate as symptom onset is unclear and could have been last evening. Case discussed with hospitalist will evaluate patient for admission. Regarding his chest pain he does have history of chronic chest pain and given his work-up here I do not feel it is cardiac in nature. Suspect more musculoskeletal etiology. Lab Data Labs: Laboratory Results - last 24 hr 08/10/20 08/10/20 08/10/20 15:43 15:43 15:43 WBC 5.1 RBC 4.30 L Hgb 11.8 L Hct 37.3 L MCV 86.7 MCH 27.4 MCHC 31.6 L RDW Std Deviation 65.4 H RDW Coeff of Cinda 20.8 H Plt Count 119 L MPV 9.6 Immature Gran % (Auto) 0.400 Neut % (Auto) 73.5 H Lymph % (Auto) 14.2 L [place] % (Auto) 8.1 Eos % (Auto) 3.6 Baso % (Auto) 0.2 Absolute Neuts (auto) 3.7 Absolute Lymphs (auto) 0.72 L Nucleated RBC % 0 Differential Comment SCANNED Anisocytosis 1+ PT 14.3 INR 1.2 APTT 32.8 Sodium 138 Potassium 3.3 L Chloride 100 Carbon Dioxide 34.0 H Anion Gap 4 L BUN 15 Creatinine 0.72 Estim Creat Clear Calc 70.97 Est GFR (MDRD) Af Amer 138 Est GFR (MDRD) Non-Af 114 BUN/Creatinine Ratio 20.7 H Glucose 200 H Calcium 8.0 L Troponin I High Sens 19.0 Radiography Diagnostic Testing: Radiology Impression Brain CT 08/10/20 15:21 IMPRESSION: Normal unenhanced CT scan of the brain. Electronically Signed: Ijeoma Beckett, at 15:41 EDT Tel , Service support , ADDENDUM: 08/10/20 1600 IMPRESSION: Normal unenhanced CT scan of the brain. N.B. : The above Results were Read Back by Ijeoma Beckett to Patti Interiano MD, and understanding confirmed on 08/10/2020 15:53:58 (ET). Electronically Signed: Ijeoma Beckett, at 15:41 EDT Tel , Service support , Head/Neck CTA 08/10/20 15:21 IMPRESSION: Normal CTA Head and neck with contrast. Electronically Signed: Ijeoma Beckett, at 15:53 EDT Tel , Service support , EKG Initial EKG: Attestation: I personally reviewed and interpreted this EKG as follows: Comments: AV dual paced rhythm with prolonged AV conduction Prior EKG tracings: available for review Prior: Unchanged Stroke Documentation Questions Stroke Team Activated: Yes Reviewed Inclusion/Exclusion criteria: Yes Was Patient considered for Endovascular Intervention?: No IV Alteplase (t-PA) Administered: No Discharge Plan Triage Chief Complaint: Weakness ED Provider: Jaydon Armstrong Dx/Rx/DC Orders Clinical Impression: Acute CVA (cerebrovascular accident), Chest pain of unknown etiology, Acute alteration in mental status Prescriptions: No Action atorvastatin 80 MG tablet 80 mg PO QHS RF: 0 clopidogrel 75 MG tablet 75 mg PO DAILY RF: 0 aspirin 81 MG tablet 81 mg PO DAILY@0800 RF: 0 finasteride 5 MG tablet 5 mg PO DAILY RF: 0 escitalopram oxalate 10 MG tablet 10 mg PO DAILY RF: 0 cholecalciferol (vitamin D3) [Vitamin D3] 1,000 UNIT tablet 3,000 units PO DAILY RF: 0 Humulin R U-500 (Conc) Kwikpen 500 UNIT/ML insulin pen 120 unit SQ BREAKFAST RF: 0 Humulin R U-500 (Conc) Kwikpen 500 UNIT/ML insulin pen 120 unit SQ DINNER RF: 0 nitroglycerin 0.4 MG tablet, sublingual 0.4 mg sublingual Q5M PRN (Reason: Chest Pain) Qty: 30 RF: 0 albuterol sulfate 1 INHALER inhaler 1 - 2 puff INHALATION 4X/DAY PRN PRN (Reason: Sob &/Or Wheezing) RF: 0 tamsulosin 0.4 MG capsule 0.4 mg PO QHS Qty: 30 RF: 0 pantoprazole 40 MG tablet 40 mg PO BID RF: 0 tiotropium bromide 2.5 mcg/actuation Mist 2 puff INHALATION DAILY RF: 0 carvedilol 25 MG tablet 25 mg PO BID RF: 0 multivitamin Tablet 1 tab PO DAILY RF: 0 furosemide 40 mg Tablet 40 mg PO DAILY RF: 0 potassium chloride [Klor-Con M20] 20 mEq Tablet,Er Particles/Crystals 20 meq PO DAILY RF: 0 ranolazine 500 mg Tablet Extended Release 12 Hr 500 mg PO BID RF: 0 acetaminophen [Tylenol] 325 MG tablet 325 mg PO Q6H PRN PRN (Reason: Mild pain 1-3/Temp > 100.7 F) RF: 0 ferrous sulfate 325 mg (65 mg iron) tablet 325 mg PO BID Qty: 60 RF: 0 guaifenesin 100 mg/5 mL Liquid 100 - 200 mg PO TID PRN (Reason: Cough) RF: 0 prednisone 20 mg tablet 40 mg PO DAILY Qty: 10 RF: 0 [facility] Care Provider[facility] [facility] [Primary Care Provider] - Disposition Disposition: Acute Care Hospital [facility]
[2020-08-10 15:48] LABS: Absolute Lymphocyte Count 0.72 X10^3/uL (0.83-4.51); Absolute Neutrophil Count 3.7 X10^3/uL (2.0-7.7); Basophil# 0.01 X10^3/uL; Basophil% 0.2 % (0-1); Eosinophil# 0.18 X10^3/uL; Eosinophils% 3.6 % (0-5); Hematocrit 37.3 % (40-54); Hemoglobin 11.8 g/dL (13.0-16.5); Lymphocyte # 0.72 X10^3/ul (0.83-4.51); Lymphocyte % 14.2 % (19-41); Mean Corp Hgb Conc 31.6 g/dL (32-36); Mean Corpuscular Hgb 27.4 pg (27.0-32.0); Mean Corpuscular Volume 86.7 fL (80-94); Mean Platelet Vol. 9.6 fl (6.2-12.0); Monocyte# 0.41 X10^3/uL; Monocyte% 8.1 % (0-10); NRBC Flagged by Analyzer 0 % (0-5); Neutrophil # 3.72 X10^3/uL (2.7-7.7); Neutrophil % 73.5 % (47-70); POSITIVE MORPHOLOGY YES; Platelet Count 119 K/mm3 (150-450); RBC Distribution Width CV 20.8 % (11.6-14.6); RBC Distribution Width SD 65.4 fl (35.1-43.9); White Blood Count 5.1 K/mm3 (4.4-11.0)
[2020-08-10 15:52] LABS: Differential Indicated SCAN CRITERIA MET
[2020-08-10 15:57] LABS: International Normalized Ratio 1.2; Partial Thromboplast Time 32.8 Seconds (24.1-36.2); Prothrombin Time (Protime)PT. 14.3 SECONDS (11.7-14.9)
[2020-08-10 16:05] LABS: Anion Gap 4 (5-15); BUN 15 mg/dL (7-18); BUN/Creat Ratio 20.7 RATIO (10-20); Chloride 100 mmol/L (98-107); Creatinine, Serum 0.72 mg/dL (0.70-1.30); EST Glomerular Filtration Rate 114 mL/min (>60); Est Glom Filt Rate - Afr Amer 138 mL/min (>60); Estimated Creatinine Clearance 70.97 ml/min; Glucose 200 mg/dL (74-106); Potassium 3.3 mmol/L (3.5-5.1); Sodium Level 138 mmol/L (136-145)
[2020-08-10 16:10] LABS: Anisocytosis 1+; Differential Comment SCANNED
[2020-08-10] MEDS: 0.9% Normal Saline 1,000 ML 100 ML IV (16:17)
[2020-08-10] MEDS: Ondansetron 4 MG/2 ML Vial IV (16:17)
[2020-08-10] MEDS: Morphine 4 MG/ML Syringe IV (16:17)
--- NOTE | 2020-08-10 16:43 | PCM.HP.STD ---
[facility] - General General Date of Admission: 08/10/20 Date of Service: 08/10/20 Chief Complaint: Slurred speech, not able to talk. HPI Narrative GIOVANNY LEONARDO, is a 70 M with past medical history as mentioned below presented to the emergency room because of slurred speech and difficulty getting the words out. According to the patient's , patient was not able to talk to his this morning, he was awake and alert but was not able to get the words out with slurred speech. Patient's mentioned that he could not talk, could not eat or drink and he could not take his medications. The patient himself is not able to provide any history. He is having difficulties getting the words out. Reportedly, he complained of chest pain in the ED and he was given IV morphine. Currently, he has no more chest pain. He had a history of and he has been on Coreg and Lasix. He had a history of CAD status post CABG and he has been on aspirin, Plavix, statins and beta-blockers. He had a history of COPD and chronic respiratory failure and he is on oxygen at home at 3 L at baseline. In the emergency department, his blood pressure was elevated, other vital signs were stable. His routine blood work was remarkable for chronic anemia, potassium of 3.3, otherwise normal. EKG revealed paced rhythm. Troponin was negative. CT scan brain showed no acute infarct or hemorrhage. CTA of the head and neck showed no hemodynamically significant vascular disease or stenosis. [facility] tele-neurology consulted and patient was not a candidate for TPA given time window. Patient is being admitted for suspected stroke. [facility] Medical History Abnormal EKG Anemia Atherosclerotic heart disease [place] coronary artery w/angina pectoris BiPAP (biphasic positive airway pressure) dependence Chronic respiratory failure Diabetes Essential (primary) hypertension History of fractured rib Hyperlipidemia Obesity EKATERINA (obstructive sleep apnea) Stroke/cerebrovascular accident Wears hearing aid in both ears Home Medications Humulin R U-500 (Conc) Kwikpen 120 unit SQ BREAKFAST 06/11/18 [History Last Taken 07/05/20] Humulin R U-500 (Conc) Kwikpen 120 unit SQ DINNER 06/11/18 [History Last Taken 07/04/20] aspirin 81 mg PO DAILY@0800 06/11/18 [History Last Taken 07/05/20] atorvastatin 80 mg PO QHS 06/11/18 [History Last Taken 07/04/20] cholecalciferol (vitamin D3) [Vitamin D3] 3,000 units PO DAILY 06/11/18 [History Last Taken 07/04/20] clopidogrel 75 mg PO DAILY 06/11/18 [History Last Taken 07/05/20] escitalopram oxalate 10 mg PO DAILY 06/11/18 [History Last Taken 07/05/20] finasteride 5 mg PO DAILY 06/11/18 [History Last Taken 07/05/20] nitroglycerin 0.4 mg SUBLINGUAL Q5M PRN #30 tablet 07/22/18 [Rx Last Taken 01/17/20] albuterol sulfate 1 - 2 puff INHALATION 4X/DAY PRN PRN 04/08/20 [History Last Taken 07/05/20] pantoprazole 40 mg PO BID 05/18/20 [History Last Taken 07/05/20] acetaminophen [Tylenol] 325 mg PO Q6H PRN PRN 06/22/20 [History Last Taken 07/05/20] carvedilol 25 mg PO BID 06/22/20 [History Last Taken 07/05/20] furosemide 40 mg PO DAILY 06/22/20 [History Last Taken 07/05/20] multivitamin 1 tab PO DAILY 06/22/20 [History Last Taken 07/04/20] potassium chloride [Klor-Con M20] 20 meq PO DAILY 06/22/20 [History Last Taken 07/05/20] ranolazine 500 mg PO BID 06/22/20 [History Last Taken 07/05/20] ferrous sulfate 325 mg PO BID #60 tab 06/23/20 [Rx Last Taken 07/05/20] guaifenesin 100 - 200 mg PO TID PRN 07/05/20 [History Last Taken 07/04/20] tamsulosin 0.8 mg PO QHS 08/10/20 [History Last Taken 08/09/20] Allergy/AdvReac Type Severity Reaction Status Date / Time ezetimibe Allergy Unknown Verified 08/10/20 15:00 Fish Containing Products Allergy Unknown Verified 08/10/20 15:00 glyburide Allergy Unknown Verified 08/10/20 15:00 isosorbide Allergy PT UNSURE Verified 08/10/20 15:00 OF REACTION lisinopril Allergy Unknown Verified 08/10/20 15:00 metformin Allergy Nausea Verified 08/10/20 15:00 metoprolol Allergy Unknown Verified 08/10/20 15:00 simvastatin Allergy Unknown Verified 08/10/20 15:00 Family History Father No problems noted. Surgical History H/O coronary artery bypass surgery History of cholecystectomy History of cholecystectomy History of coronary artery stent placement History of knee replacement procedure of left knee History of permanent cardiac pacemaker placement (09/10/11) Social History household members: spouse Smoking Status: Former smoker substance use type: does not use ROS Constitutional Constitutional: Denies anorexia, fatigue, fever(s) or malaise Eyes Eyes: Denies blurry vision, change in eye color, change in vision or double vision ENT HEENT: Denies ear discharge, epistaxis, headache(s), nasal congestion or post nasal drip Cardiovascular Cardiovascular: Reports chest pain; Denies edema, lightheadedness, palpitations or syncope Respiratory/Chest Respiratory/Chest: Denies cough, dyspnea, hemoptysis, shortness of breath at rest or wheezing Gastrointestinal Gastrointestinal: Denies abdominal pain, constipation, diarrhea, nausea or vomiting Genitourinary Genitourinary: Denies burning urination, dysuria, hematuria, urinary hesitancy or urinary urgency Musculoskeletal Musculoskeletal: Denies arthralgias, joint pain, joint swelling or myalgias Neurologic Neurologic: Reports abnormal speech and focal weakness; Denies confusion, dizziness, headache(s), numbness, paresthesias, seizures or vertigo Psychiatric Psychiatric: Reports depression; Denies anxiety, hallucinations, homicidal ideation or suicidal ideation Endocrine Endocrinology: Denies change in body appearance, cold intolerance or heat intolerance Hematologic/Lymphatic Hematologic/Lymphatic: Denies easy bleeding, easy bruising or lymphadenopathy Allergic/Immunologic Allergic/Immunologic: Denies itchy eyes, rhinitis, throat swelling, tongue swelling, hives, urticaria or wheezing Vital Signs Vital Signs Vital Signs: 08/10/20 15:01 08/10/20 15:38 08/10/20 16:00 Temperature 98.0 F Temperature Source Oral Pulse Rate 60 60 Respiratory Rate 24 H 17 Respiratory Effort Normal Non-Labored Respiratory Pattern Normal Blood Pressure 127/71 H 171/79 H Blood Pressure Mean 89 109 Pulse Ox 96 98 Oxygen Delivery Method Nasal Cannula Nasal Cannula Nasal Cannula Oxygen Flow Rate (L/min) 2 2 2 Weight Weight: 234 lb 5.622 oz Body Mass Index (BMI) 33.6 Physical Exam Const alert and no limitations Constitutional Narrative: Abnormal speech, dysarthria. General Appearance: cooperative HEENT normocephalic, head/scalp atraumatic, external ears normal, external nose normal and moist oral mucous membranes Eyes PERRL, EOMs intact bilaterally, conjunctivae normal and no scleral icterus General Eye: normal appearance of both eyes Neck no lymphadenopathy, supple, no meningeal signs, no JVD and no carotid bruits Lymph Lymphatic: no lymphadenopathy noted Resp normal respiratory effort, normal air movement and clear to auscultation bilaterally Resp Narrative: Diminished breath sounds bilateral, otherwise clear. Auscultation: Negative for crackles, rales, rhonchi or wheezes Cardio regular rate, regular rhythm, S1 normal heart sound, S2 normal heart sound, no murmurs and no JVD GI normal to inspection, nondistended, normoactive bowel sounds, soft to palpation, non-tender and non-distended; Negative for hepatosplenomegaly GI Narrative: Morbidly obese. Extremity normal to inspection and full ROM Extremity Narrative: Trace edema, no clubbing or cyanosis. Skin no rashes or lesions noted, no wounds and no petechiae Neuro CN's II-XII intact bilaterally Neuro Narrative: Dysarthria. Left side hemiparesis due to old stroke. Sensorium / Orientation: awake and alert Psych mental status grossly normal and affect normal Appearance: appropriate Results Lab / Micro Data Result Diagrams: 08/10/20 15:43 08/10/20 15:43 Labs: Laboratory Results - last 24 hr 08/10/20 08/10/20 08/10/20 15:43 15:43 15:43 WBC 5.1 RBC 4.30 L Hgb 11.8 L Hct 37.3 L MCV 86.7 MCH 27.4 MCHC 31.6 L RDW Std Deviation 65.4 H RDW Coeff of Cinda 20.8 H Plt Count 119 L MPV 9.6 Immature Gran % (Auto) 0.400 Neut % (Auto) 73.5 H Lymph % (Auto) 14.2 L [place] % (Auto) 8.1 Eos % (Auto) 3.6 Baso % (Auto) 0.2 Absolute Neuts (auto) 3.7 Absolute Lymphs (auto) 0.72 L Nucleated RBC % 0 Differential Comment SCANNED Anisocytosis 1+ PT 14.3 INR 1.2 APTT 32.8 Sodium 138 Potassium 3.3 L Chloride 100 Carbon Dioxide 34.0 H Anion Gap 4 L BUN 15 Creatinine 0.72 Estim Creat Clear Calc 70.97 Est GFR (MDRD) Af Amer 138 Est GFR (MDRD) Non-Af 114 BUN/Creatinine Ratio 20.7 H Glucose 200 H Calcium 8.0 L Troponin I High Sens 19.[address] 08/10/20 15:21 IMPRESSION: Normal unenhanced CT scan of the brain. Electronically Signed: Ijeoma Beckett, at 15:41 EDT Tel , Service support , ADDENDUM: 08/10/20 1600 IMPRESSION: Normal unenhanced CT scan of the brain. N.B. : The above Results were Read Back by Ijeoma Beckett to Patti Interiano MD, and understanding confirmed on 08/10/2020 15:53:58 (ET). Electronically Signed: Ijeoma Beckett, at 15:41 EDT Tel , Service support , Head/Neck CTA 08/10/20 15:21 IMPRESSION: Normal CTA Head and neck with contrast. Electronically Signed: Ijeoma Beckett, at 15:53 EDT Tel , Service support , Assessment & Plan Assessment/Plan (1) Unknown when suspected stroke patient was last well: (2) Dysarthria: (3) DM type 2 (diabetes mellitus, type 2): QUALIFIERS: Qualified Code(s): Z79.4 - longterm (current) use of insulin (4) CAD (coronary artery disease): (5) COPD (chronic obstructive pulmonary disease): QUALIFIERS: COPD type: COPD with acute exacerbation Qualified Code(s): J44.1 - Chronic obstructive pulmonary disease with (acute) exacerbation (6) History of permanent cardiac pacemaker placement: (7) Essential (primary) hypertension: (8) Hyperlipidemia: (9) Chronic respiratory failure: QUALIFIERS: Respiratory failure complication: unspecified whether with hypoxia or hypercapnia Qualified Code(s): J96.10 - Chronic respiratory failure, unspecified whether with hypoxia or hypercapnia PLAN: This is a 70 years old male patient presented to the emergency because of slurred speech and difficulty getting words out and is being admitted for suspected acute stroke. #1 dysarthria/slurred speech: Concern for acute stroke. CT scan brain showed no acute findings, CTA head and neck was unremarkable. Patient was out of window for TPA. He does have chronic left hemiparesis because of old stroke. EKG reviewed as above. Patient had 2D echocardiogram on April,, showed ejection fraction of 60%, no other acute findings. Plan: Admit to PCU for observation, cardiac monitoring, NIH stroke scale, continue aspirin, Plavix and statins, plan to repeat CT scan brain tomorrow morning as we cannot do the MRI because patient has pacemaker, speech therapy evaluation and treatment, gentle IV fluids for hydration, Tylenol as needed, Zofran as needed, repeat CBC and BMP tomorrow morning. PT OT evaluation and treatment. #2 chest pain: Reportedly, patient had chest pain in the ED. EKG was unremarkable. Troponin was negative. At this time, I doubt acute cardiac event. Plan: Cardiac monitoring, serial cardiac enzymes. #3 hypokalemia: Due to diuretics. Plan to place potassium with IV potassium chloride, repeat BMP tomorrow morning. #4 CAD status post CABG and stents: EKG reviewed, no acute findings. Troponin is negative. Continue aspirin, Plavix, statins and beta-blockers. #5 type 2 diabetes mellitus: ADA diet, Accu-Cheks, insulin sliding scale, continue home dose of insulin. #6 hypertension: Blood pressure slightly repeated, will allow permissive hypertension, continue Coreg and Lasix. #7 COPD/chronic respiratory failure: On oxygen at 3 L at baseline, plan for DuoNeb every 6 hours, albuterol as needed, O2 per nasal cannula. #8 CODE STATUS: Discussed with the patient's , full code. #9 DVT prophylaxis: Subcu Lovenox. This note was generated with [employer] ([employer]) dictation software. It may contain incorrect words, spelling, and punctuation that were not noted in checking the note before signing. Charges/Coding Multi Select Codes Visit Charges Observation E&M Codin Initial observation care L3
[2020-08-10] MEDS: Potassium Chloride 10mEq/100mL 10 MEQ/100 ML IV.SOLN. 100 MEQ IV BOLUS ×2 (18:54→20:15)
[2020-08-10 19:13] LABS: Troponin-I HS 21.8 pg/mL (3.0-78.5)
[2020-08-10] MEDS: Ipratropium/Albuterol Sulfate 3 ML AMPUL.NEB INHALATION (19:40)
[2020-08-10] MEDS: Acetaminophen 325 MG Tablet 650 MG PO (19:52)
--- NOTE | 2020-08-10 20:37 | CPS ---
Patient's home BiPAP setup at bedside with 2L O2 bled in.
[2020-08-10] MEDS: 0.9% Normal Saline 1,000 ML 75 ML IV (21:36)
[2020-08-10] MEDS: Atorvastatin Calcium 80 MG Tablet PO (21:37)
[2020-08-10] MEDS: Tamsulosin HCl 0.4 MG Capsule PO (21:37)
[2020-08-10] MEDS: Ranolazine 500 MG Tablet PO (21:37)
[2020-08-10] MEDS: Pantoprazole Sodium 40 MG Tablet PO (21:37)
[2020-08-10] MEDS: Carvedilol 25 MG Tablet PO (21:37)
[2020-08-10] MEDS: oxyCODONE 5 MG Tablet PO (21:38)
[2020-08-10] MEDS: Insulin Lispro 100 UNIT/ML INSULN.PEN SC (21:38)
[2020-08-10 23:06] LABS: Bedside Glucose 252 mg/dL (70-110)
[2020-08-10] MEDS: MELATONIN 3 MG TABLET PO (23:29)
[2020-08-10 23:43] LABS: Troponin-I HS 19.8 pg/mL (3.0-78.5)
[2020-08-11] VITALS (13 sets, daily range): BP systolic 109–164; BP diastolic 43–80; PULSE 60–78; RESP 16–24; TEMP 36.6–37.4; O2SAT 92–96
--- NOTE | 2020-08-11 05:55 | CT_ITS ---
STUDY: CT BRAIN WITHOUT CONTRAST REASON FOR EXAM: Male, 70 years old. Slurred speech, dysarthria, suspected stroke RADIATION DOSAGE (If Supplied By Facility): CTDIvol = ( 44.99 ) mGy, DLP = ( 846.73 ) mGycm TECHNIQUE: Transaxial CT imaging of the brain was performed without administration of intravenous contrast material. Individualized dose optimization techniques were used for this CT. COMPARISON: No relevant priors. FINDINGS: Normal soft tissue structures. Normal calvarium. Normal size ventricles and extra-axial spaces for the patient''s age. Normal white matter tracts of the cerebral hemispheres. Normal basal ganglia and thalami. Normal brainstem. Normal cerebellum. There is no intracranial hemorrhage. There are no findings of an acute ischemic infarction. Normal visualized paranasal sinuses. CT/Brain/Head without Contrast IMPRESSION: No acute intracranial hemorrhage or mass effect. Electronically Signed: Karlos Cabrera MD ([place]) at 15:46 EDT , Service support ,
[2020-08-11 06:56] LABS: Absolute Lymphocyte Count 0.57 X10^3/uL (0.83-4.51); Absolute Neutrophil Count 5.2 X10^3/uL (2.0-7.7); Basophil# 0.01 X10^3/uL; Basophil% 0.2 % (0-1); Eosinophil# 0.25 X10^3/uL; Eosinophils% 3.9 % (0-5); Hematocrit 34.4 % (40-54); Hemoglobin 10.7 g/dL (13.0-16.5); Lymphocyte # 0.57 X10^3/ul (0.83-4.51); Lymphocyte % 8.9 % (19-41); Mean Corp Hgb Conc 31.1 g/dL (32-36); Mean Corpuscular Hgb 27.2 pg (27.0-32.0); Mean Corpuscular Volume 87.5 fL (80-94); Mean Platelet Vol. 9.6 fl (6.2-12.0); Monocyte# 0.44 X10^3/uL; Monocyte% 6.8 % (0-10); NRBC Flagged by Analyzer 0 % (0-5); Neutrophil # 5.15 X10^3/uL (2.7-7.7); POSITIVE DIFFERENTIAL YES; POSITIVE MORPHOLOGY YES; Platelet Count 110 K/mm3 (150-450); RBC Distribution Width CV 21.1 % (11.6-14.6); Red Blood Count 3.93 M/mm3 (4.6-6.2); White Blood Count 6.4 K/mm3 (4.4-11.0)
[2020-08-11 07:01] LABS: Differential Indicated SCAN CRITERIA MET
[2020-08-11] MEDS: Ipratropium/Albuterol Sulfate 3 ML AMPUL.NEB INHALATION ×3 (07:11→20:45)
[2020-08-11 07:24] LABS: Anisocytosis RARE; Differential Comment SCANNED; Microcytosis RARE; Ovalocyte RARE
[2020-08-11 07:29] LABS: Anion Gap 7 (5-15); BUN 16 mg/dL (7-18); BUN/Creat Ratio 20.9 RATIO (10-20); Calcium,Total 7.8 mg/dL (8.5-10.1); Chloride 99 mmol/L (98-107); Creatinine, Serum 0.76 mg/dL (0.70-1.30); EST Glomerular Filtration Rate 107 mL/min (>60); Est Glom Filt Rate - Afr Amer 130 mL/min (>60); Estimated Creatinine Clearance 70.97 ml/min; Glucose 270 mg/dL (74-106); Potassium 3.5 mmol/L (3.5-5.1); Sodium Level 136 mmol/L (136-145)
[2020-08-11] MEDS: Insulin U-500 UNITS/ML PEN 120 UNITS SC ×2 (09:02→17:18)
[2020-08-11] MEDS: Insulin Lispro 100 UNIT/ML INSULN.PEN SC ×2 (09:02→11:05)
[2020-08-11 09:11] LABS: Bedside Glucose 258 mg/dL (70-110)
[2020-08-11] MEDS: Escitalopram Oxalate 10 MG Tablet PO (09:22)
[2020-08-11] MEDS: Ranolazine 500 MG Tablet PO ×2 (09:22→21:07)
[2020-08-11] MEDS: Enoxaparin 40 MG/0.4 ML Syringe SC (09:22)
[2020-08-11] MEDS: Clopidogrel Bisulfate 75 MG Tablet PO (09:22)
[2020-08-11] MEDS: Aspirin E.C. 81 MG Tablet PO (09:22)
[2020-08-11] MEDS: Carvedilol 25 MG Tablet PO ×2 (09:22→21:07)
[2020-08-11] MEDS: Furosemide 40 MG Tablet PO (09:22)
[2020-08-11] MEDS: Pantoprazole Sodium 40 MG Tablet PO ×2 (09:23→21:07)
[2020-08-11] MEDS: Finasteride 5 MG Tablet PO (09:23)
[2020-08-11] MEDS: Ferrous Sulfate 325 MG Tablet PO ×2 (11:06→17:17)
[2020-08-11 11:21] LABS: Bedside Glucose 264 mg/dL (70-110)
--- NOTE | 2020-08-11 11:54 | PCM.PN.HOSP ---
Documented by User: Jose MÉNDEZ 08/11/20 12:15 Subjective Subjective Patient is a 70-year-old male sitting in a chair eating breakfast, alert and oriented x3. Patient is alert and oriented, his speech is still slurred and has apparent left-sided weakness. His slurred speech makes it difficult to understand patient response and how much he understands, it is difficult for patient to provide much insight into current condition. Objective Data Objective Data Vital Signs: Vital Signs Temp Pulse Resp BP Pulse Ox 99.3 F H 78 16 127/43 H 94 08/11/20 09:05 08/11/20 09:05 08/11/20 09:05 08/11/20 09:05 08/11/20 09:05 Oxygen Flow Rate (L/min) 2 Oxygen Delivery Method Nasal Cannula Weight: 230 lb 6.129 oz Body Mass Index (BMI) 33.0 Intake & Output: Intake and Output for Last 24 Hours 08/09/20 08/10/20 08/11/20 23:59 23:59 23:59 Intake Total 200 / 440 2266.67 / 2266.67 Output Total 720 / 720 Balance 200 / 170 1546.67 / 1546.67 Lab / Micro Data Result Diagrams: 08/11/20 06:40 08/11/20 06:40 Labs: Laboratory Results - last 24 hr 08/10/20 08/10/20 08/10/20 15:43 15:43 15:43 WBC 5.1 RBC 4.30 L Hgb 11.8 L Hct 37.3 L MCV 86.7 MCH 27.4 MCHC 31.6 L RDW Std Deviation 65.4 H RDW Coeff of Cinda 20.8 H Plt Count 119 L MPV 9.6 Immature Gran % (Auto) 0.400 Neut % (Auto) 73.5 H Lymph % (Auto) 14.2 L [place] % (Auto) 8.1 Eos % (Auto) 3.6 Baso % (Auto) 0.2 Absolute Neuts (auto) 3.7 Absolute Lymphs (auto) 0.72 L Nucleated RBC % 0 Differential Comment SCANNED Anisocytosis 1+ Microcytosis Ovalocytes PT 14.3 INR 1.2 APTT 32.8 Sodium 138 Potassium 3.3 L Chloride 100 Carbon Dioxide 34.0 H Anion Gap 4 L BUN 15 Creatinine 0.72 Estim Creat Clear Calc 70.97 Est GFR (MDRD) Af Amer 138 Est GFR (MDRD) Non-Af 114 BUN/Creatinine Ratio 20.7 H Glucose 200 H Calcium 8.0 L Troponin I High Sens 19.0 POC Glucose 08/10/20 08/10/20 08/10/20 18:42 21:36 23:05 WBC RBC Hgb Hct MCV MCH MCHC RDW Std Deviation RDW Coeff of Cinda Plt Count MPV Immature Gran % (Auto) Neut % (Auto) Lymph % (Auto) [place] % (Auto) Eos % (Auto) Baso % (Auto) Absolute Neuts (auto) Absolute Lymphs (auto) Nucleated RBC % Differential Comment Anisocytosis Microcytosis Ovalocytes PT INR APTT Sodium Potassium Chloride Carbon Dioxide Anion Gap BUN Creatinine Estim Creat Clear Calc Est GFR (MDRD) Af Amer Est GFR (MDRD) Non-Af BUN/Creatinine Ratio Glucose Calcium Troponin I High Sens 21.8 19.8 POC Glucose 252 H 08/11/20 08/11/20 08/11/20 06:40 06:40 08:59 WBC 6.4 RBC 3.93 L Hgb 10.7 L Hct 34.4 L MCV 87.5 MCH 27.2 MCHC 31.1 L RDW Std Deviation 67.0 H RDW Coeff of Cinda 21.1 H Plt Count 110 L MPV 9.6 Immature Gran % (Auto) 0.200 Neut % (Auto) 80.0 H Lymph % (Auto) 8.9 L [place] % (Auto) 6.8 Eos % (Auto) 3.9 Baso % (Auto) 0.2 Absolute Neuts (auto) 5.2 Absolute Lymphs (auto) 0.57 L Nucleated RBC % 0 Differential Comment SCANNED Anisocytosis RARE Microcytosis RARE Ovalocytes RARE PT INR APTT Sodium 136 Potassium 3.5 Chloride 99 Carbon Dioxide 30.0 Anion Gap 7 BUN 16 Creatinine 0.76 Estim Creat Clear Calc 70.97 Est GFR (MDRD) Af Amer 130 Est GFR (MDRD) Non-Af 107 BUN/Creatinine Ratio 20.9 H Glucose 270 H Calcium 7.8 L Troponin I High Sens POC Glucose 258 H 08/11/20 11:00 WBC RBC Hgb Hct MCV MCH MCHC RDW Std Deviation RDW Coeff of Cinda Plt Count MPV Immature Gran % (Auto) Neut % (Auto) Lymph % (Auto) [place] % (Auto) Eos % (Auto) Baso % (Auto) Absolute Neuts (auto) Absolute Lymphs (auto) Nucleated RBC % Differential Comment Anisocytosis Microcytosis Ovalocytes PT INR APTT Sodium Potassium Chloride Carbon Dioxide Anion Gap BUN Creatinine Estim Creat Clear Calc Est GFR (MDRD) Af Amer Est GFR (MDRD) Non-Af BUN/Creatinine Ratio Glucose Calcium Troponin I High Sens POC Glucose 264 H Radiography Diagnostic Testing: Radiology Impression Brain CT 08/10/20 15:21 IMPRESSION: Normal unenhanced CT scan of the brain. Electronically Signed: Ijeoma Beckett, at 15:41 EDT Tel , Service support , ADDENDUM: 08/10/20 1600 IMPRESSION: Normal unenhanced CT scan of the brain. N.B. : The above Results were Read Back by Ijeoma Beckett to Patti Interiano MD, and understanding confirmed on 08/10/2020 15:53:58 (ET). Electronically Signed: Ijeoma Beckett, at 15:41 EDT Tel , Service support , Chest X-Ray 08/10/20 15:21 IMPRESSION: No acute cardiopulmonary findings or changes. Negative for new consolidation, atelectasis or pleural effusion. Stable cardiac size status post prior midline sternotomy. Right atrial and ventricular pacemaker leads remain in good position. Electronically Signed: Josie Murray MD at 17:00 EDT , Service support , Head/Neck CTA 08/10/20 15:21 IMPRESSION: Normal CTA Head and neck with contrast. Electronically Signed: Ijeoma Beckett, at 15:53 EDT Tel , Service support , ADDENDUM: 08/10/20 1909 IMPRESSION: Normal CTA Head and neck with contrast. N.B. : The above Results were Read Back by Ijeoma Beckett to Dr. Patti Interiano MD, and understanding confirmed on 08/10/2020 19:02:58 (ET). Electronically Signed: Ijeoma Beckett, at 15:53 EDT Tel , Service support , Physical Exam Const alert, oriented x3 and no apparent distress Constitutional Narrative: Patient's ongoing dysarthria make it difficult to understand what patient is saying or how much he is actually comprehending. Exam Limitations: other limitations HEENT head/scalp atraumatic and moist oral mucous membranes Head and Scalp: normocephalic Eyes EOMs intact bilaterally and conjunctivae normal Neck no lymphadenopathy, supple and no JVD Resp normal respiratory effort, no retractions, no use of accessory muscles and clear to auscultation bilaterally Cardio regular rate, regular rhythm, no murmurs and no JVD GI normal to inspection, nondistended, normoactive bowel sounds, soft to palpation and non-tender Extremity normal to inspection, full ROM and no clubbing, cyanosis or edema Skin no rashes or lesions noted, no wounds and skin turgor normal Neuro CN's II-XII intact bilaterally Psych affect normal Assessment & Plan Assessment/Plan (1) Dysarthria: (2) DM type 2 (diabetes mellitus, type 2): QUALIFIERS: Qualified Code(s): Z79.4 - nursing home (current) use of insulin (3) CAD (coronary artery disease): (4) COPD (chronic obstructive pulmonary disease): QUALIFIERS: COPD type: COPD with acute exacerbation Qualified Code(s): J44.1 - Chronic obstructive pulmonary disease with (acute) exacerbation (5) History of permanent cardiac pacemaker placement: (6) Essential (primary) hypertension: (7) Hyperlipidemia: (8) Chronic respiratory failure: QUALIFIERS: Respiratory failure complication: unspecified whether with hypoxia or hypercapnia Qualified Code(s): J96.10 - Chronic respiratory failure, unspecified whether with hypoxia or hypercapnia (9) Unknown when suspected stroke patient was last well: PLAN: Day 2: See subjective for patient presentation. Discharge planning; Patient would likely be a candidate for placement, although this is not in patient wishes. PT/OT eval pending. Case management is following. 1) Dysarthria/slurred speech/suspeted CVA Patient not a candidate for brain MRI due to pacemaker. Additional brain CT ordered/pending. Patient continues to demonstrate dysarthria and left-sided weakness in the upper and lower extremities. Nurse who is taking care of patient has had patient in the past, and reports these are new presentations for this patient. Serial NIH is between 5 and 6. Plan; SOC consult ordered/pending, PT/OT eval ordered. 2) chest pain Patient still reporting of intermittent chest pain. Troponins not elevated throughout cycle. EKG did not demonstrate any ischemic changes. Unlikely cardiac in nature. No events overnight on telemetry monitoring. Plan; continue cardiac monitoring 3) hypokalemia Resolved, currently 3.5. Plan; continue to monitor BMP. 4) CAD status post CABG and stent Continue aspirin, statin, Plavix, carvedilol, Ranexa and Lasix. 5) DM2 POC glucose 264. Plan; hemoglobin A1c ordered, continue basal insulin 6) HTN Stable, continue Coreg and Lasix. 7) COPD/chronic respiratory failure Currently satting 94% on 2 L via nasal cannula. Continue DuoNebs and albuterol as needed. DVT prophylaxis -Lovenox Patient seen by Jose Ramos PA-C, under the supervision of Dr. Short Documented by User: Dr. Varsha Short, 08/11/20 14:52 Subjective Subjective The patient was seen in conjunction with DEV Sands. The following is a representation my independent history and physical exam please see the below for any addendum's to the above note. Patient's is at the bedside and states that his dysarthria has improved. She reports he was also hemiparetic and flaccid on the left side upon arrival but this is improved dramatically since admission. Upon discussion with the patient it seems that he may be resistant to placement for short-term rehab at discharge but I did ask him to consider this based on the fact that he has new weakness on the left side and is an increased risk for persistent problems at home after discharge. He currently is on aspirin and Plavix. He has been on Coumadin in the past but it was stopped secondary to falls from what I can gather per our discussion. Objective Data Lab / Micro Data Result Diagrams: 08/11/20 06:40 08/11/20 06:40 Physical Exam Const Constitutional Narrative: Older white male sitting on the edge of the bed, appears older than stated age, dysarthric with conversation, nontoxic, with at bedside HEENT head/scalp atraumatic and moist oral mucous membranes Head and Scalp: normocephalic Eyes PERRL, EOMs intact bilaterally and conjunctivae normal Neck supple and no JVD Neck Narrative: Trachea midline Resp normal respiratory effort, no retractions, no use of accessory muscles and clear to auscultation bilaterally Resp Narrative: Diffusely diminished but clear Auscultation: Negative for crackles, rales, rhonchi or wheezes Cardio regular rate, regular rhythm, S1 normal heart sound, S2 normal heart sound, no murmurs, no rub, no gallops, no clicks and no JVD GI normal to inspection, nondistended, normoactive bowel sounds, soft to palpation, non-tender and non-distended; Negative for hepatosplenomegaly Extremity normal to inspection, full ROM and no clubbing, cyanosis or edema Peripheral Pulses: Yes pulses 2+ throughout Skin no rashes or lesions noted, no wounds, skin turgor normal, no jaundice, no petechiae and no mottling Neuro oriented x3 and CN's II-XII intact bilaterally Neuro Narrative: Left upper extremity pronator drift and weakness, 3+ on proximal upper extremity strength, left lower extremity weakness noted, 3+ on left lower extremity proximal strength, dysarthria, able to move all extremities but not symmetric Sensorium / Orientation: awake and alert Psych affect normal Assessment & Plan Assessment/Plan (1) Dysarthria: (2) DM type 2 (diabetes mellitus, type 2): QUALIFIERS: Qualified Code(s): Z79.4 - nursing home (current) use of insulin (3) Essential (primary) hypertension: (4) Hyperlipidemia: (5) Chronic respiratory failure: QUALIFIERS: Respiratory failure complication: unspecified whether with hypoxia or hypercapnia Qualified Code(s): J96.10 - Chronic respiratory failure, unspecified whether with hypoxia or hypercapnia (6) Hemiparesis, left: (7) Atherosclerotic heart disease [place] coronary artery w/angina pectoris: (8) EKATERINA (obstructive sleep apnea): PLAN: Assessment: Dysarthria/left hemiparesis -Suspect acute right MCA stroke based on symptoms Chest pain Hypokalemia-resolved DM-2(uncontrolled--> A1c is 7.8) Chronic anemia CAD Hypertension Hyperlipidemia EKATERINA Obesity COPD Chronic hypoxic respiratory failure -Baseline O2 is 3 L Chronic diastolic dysfunction BPH GERD Plan: -Continue stroke order set parameters -Based on symptoms and presentation suspect acute right MCA stroke -Patient was outside the window for tPA on arrival -Symptoms are improving slowly -Continue aspirin and Plavix -Placement reports strict compliance with these medications -Patient has been on full anticoagulation in the past but this was discontinued -I am unclear when or why this was discontinued and the patient and are unable to clarify -? discontinue one of the dual antiplatelet therapies and initiate NOAC -Await input from neurology -No need to repeat echocardiogram--> patient had one in April 2020 and showed an EF of 60% with diastolic dysfunction and no regional wall motion abnormalities -CTA of the head and neck on 08/10/2020 was within normal limits -Repeat CT done this morning -Awaiting read -Unable to do MRI secondary to pacemaker -Patient is on U500 insulin--> continue regimen -Continue all other home medications -Based on the patient's clinical findings I suspect he may need rehab at discharge--> await PT/OT evaluation -I am concerned that the patient may resistant to this based on our conversation today his was at bedside and agrees that TCU may be a good discharge plan but I suspect he is going to be resistant to this as well -SOC neurology consulted -Speech therapy has cleared for a regular/thin liquid diet Charges/Coding Visit Charges Inpatient E&M: 74533 Subs Hosp L2
--- NOTE | 2020-08-11 12:32 | CASEMGMT ---
AYUSH Note Referral Source: after school program director Referral Reason: Possible [facility] at Discharge. SW met with patient and his in patient's room. stated she thought patient was doing ok at home. said that patient has alot of appointments at the [place] this [facility] and said that she believes patient is worn out. said that patient has a nurse come out every 2 weeks but stated if he needs therapy we will have to get that. Patient and report patient has shower grab bars, elevated toilet seat, scooter, rollator, wheelchair and can. Patient is on 2L of oxygen at home PRN. Patient was previously in [facility] in 02/2009 at [facility] and no [facility] since. Patient's Home Health is [facility]. Patient's said I thought he was doing pretty good. inquired about Transitional Care Unit and patient said no.. I don't need it.. they just want money. SW advised that PT/OT will provide recommendations for patient. SW inquired if patient and have any other concerns or issues currently and they said no. SW will remain available Plan: To be determined. Sindi RENEE
[2020-08-11 12:58] LABS: Hemoglobin A1c 7.9 % (3.8-5.6)
[2020-08-11 17:25] LABS: Bedside Glucose 166 mg/dL (70-110)
[2020-08-11] MEDS: oxyCODONE 5 MG Tablet PO (21:04)
[2020-08-11] MEDS: MELATONIN 3 MG TABLET PO (21:07)
[2020-08-11] MEDS: Tamsulosin HCl 0.4 MG Capsule PO (21:07)
[2020-08-11] MEDS: Atorvastatin Calcium 80 MG Tablet PO (21:07)
[2020-08-11 21:51] LABS: Bedside Glucose 88 mg/dL (70-110)
[2020-08-12 00:07] VITALS: BMI 33.0
[2020-08-12 03:00] VITALS: BP 111/53; PULSE 60; PULSE 61; RESP 16; TEMP 36.8; O2SAT 94
[2020-08-12 05:50] LABS: Absolute Lymphocyte Count 0.65 X10^3/uL (0.83-4.51); Absolute Neutrophil Count 3.8 X10^3/uL (2.0-7.7); Basophil# 0.01 X10^3/uL; Basophil% 0.2 % (0-1); Eosinophil# 0.19 X10^3/uL; Eosinophils% 3.7 % (0-5); Hemoglobin 10.9 g/dL (13.0-16.5); Lymphocyte # 0.65 X10^3/ul (0.83-4.51); Lymphocyte % 12.7 % (19-41); Mean Corp Hgb Conc 31.1 g/dL (32-36); Mean Corpuscular Hgb 26.7 pg (27.0-32.0); Mean Corpuscular Volume 85.8 fL (80-94); Mean Platelet Vol. 10.5 fl (6.2-12.0); Monocyte# 0.48 X10^3/uL; Monocyte% 9.4 % (0-10); NRBC Flagged by Analyzer 0 % (0-5); Neutrophil # 3.76 X10^3/uL (2.7-7.7); Neutrophil % 73.6 % (47-70); POSITIVE MORPHOLOGY YES; Platelet Count 121 K/mm3 (150-450); RBC Distribution Width CV 20.4 % (11.6-14.6); RBC Distribution Width SD 63.4 fl (35.1-43.9); Red Blood Count 4.08 M/mm3 (4.6-6.2); White Blood Count 5.1 K/mm3 (4.4-11.0)
[2020-08-12 06:06] LABS: Differential Indicated SCAN CRITERIA MET
[2020-08-12 06:18] LABS: Anion Gap 7 (5-15); BUN 13 mg/dL (7-18); BUN/Creat Ratio 19.5 RATIO (10-20); Calcium,Total 7.8 mg/dL (8.5-10.1); Chloride 100 mmol/L (98-107); Creatinine, Serum 0.67 mg/dL (0.70-1.30); EST Glomerular Filtration Rate 125 mL/min (>60); Est Glom Filt Rate - Afr Amer 152 mL/min (>60); Estimated Creatinine Clearance 70.97 ml/min; Glucose 139 mg/dL (74-106); Potassium 3.3 mmol/L (3.5-5.1); Sodium Level 138 mmol/L (136-145)
[2020-08-12 06:33] LABS: Anisocytosis 1+
[2020-08-12 06:36] VITALS: PULSE 61
[2020-08-12 07:30] VITALS: PULSE 56; RESP 16
[2020-08-12] MEDS: Ipratropium/Albuterol Sulfate 3 ML AMPUL.NEB INHALATION (07:30)
[2020-08-12 07:56] VITALS: BMI 33.0
[2020-08-12 08:00] VITALS: BP 137/58; PULSE 60; RESP 16; TEMP 36.7; O2SAT 96
[2020-08-12] MEDS: Insulin Lispro 100 UNIT/ML INSULN.PEN SC ×2 (08:06→11:04)
[2020-08-12] MEDS: Aspirin E.C. 81 MG Tablet PO (08:06)
[2020-08-12] MEDS: Potassium Chloride Oral Tablet 20 MEQ 40 MEQ PO (08:06)
[2020-08-12] MEDS: Insulin U-500 UNITS/ML PEN 120 UNITS SC (08:07)
[2020-08-12 09:10] LABS: Bedside Glucose 164 mg/dL (70-110)
[2020-08-12 09:27] VITALS: BP 133/60; PULSE 63; RESP 16; TEMP 36.7; O2SAT 95
[2020-08-12] MEDS: Clopidogrel Bisulfate 75 MG Tablet PO (09:30)
[2020-08-12] MEDS: Furosemide 40 MG Tablet PO (09:30)
[2020-08-12] MEDS: Pantoprazole Sodium 40 MG Tablet PO (09:30)
[2020-08-12] MEDS: Finasteride 5 MG Tablet PO (09:30)
[2020-08-12] MEDS: Escitalopram Oxalate 10 MG Tablet PO (09:31)
[2020-08-12] MEDS: Carvedilol 25 MG Tablet PO (09:31)
[2020-08-12] MEDS: Ranolazine 500 MG Tablet PO (09:31)
--- NOTE | 2020-08-12 11:01 | PCM.DC ---
Discharge Instructions Diet Discharge Diet: No restrictions Activity Discharge Activity: Return to Normal Activity Follow Up Care Test Results: Test results from this visit will be discussed in further detail at your follow-up appointment, if applicable. Discharge Plan Admission Admit Date/Time: 08/11/20 09:36 Primary Reason for Your Visit: Stroke Attending Provider: Varsha Short Primary Care Provider: [facility] Discharge Orders/Prescriptions Prescriptions: New Brilinta 60 mg tablet 60 mg PO BID Qty: 60 RF: 0 Continued atorvastatin 80 MG tablet 80 mg PO QHS RF: 0 aspirin 81 MG tablet 81 mg PO DAILY@0800 RF: 0 finasteride 5 MG tablet 5 mg PO DAILY RF: 0 escitalopram oxalate 10 MG tablet 10 mg PO DAILY RF: 0 cholecalciferol (vitamin D3) [Vitamin D3] 1,000 UNIT tablet 3,000 units PO DAILY RF: 0 Humulin R U-500 (Conc) Kwikpen 500 UNIT/ML insulin pen 120 unit SQ BREAKFAST RF: 0 Humulin R U-500 (Conc) Kwikpen 500 UNIT/ML insulin pen 120 unit SQ DINNER RF: 0 nitroglycerin 0.4 MG tablet, sublingual 0.4 mg sublingual Q5M PRN (Reason: Chest Pain) Qty: 30 RF: 0 albuterol sulfate 1 INHALER inhaler 1 - 2 puff INHALATION 4X/DAY PRN PRN (Reason: Sob &/Or Wheezing) RF: 0 pantoprazole 40 MG tablet 40 mg PO BID RF: 0 carvedilol 25 MG tablet 25 mg PO BID RF: 0 multivitamin Tablet 1 tab PO DAILY RF: 0 furosemide 40 mg Tablet 40 mg PO DAILY RF: 0 potassium chloride [Klor-Con M20] 20 mEq Tablet,Er Particles/Crystals 20 meq PO DAILY RF: 0 ranolazine 500 mg Tablet Extended Release 12 Hr 500 mg PO BID RF: 0 acetaminophen [Tylenol] 325 MG tablet 325 mg PO Q6H PRN PRN (Reason: Mild pain 1-3/Temp > 100.7 F) RF: 0 ferrous sulfate 325 mg (65 mg iron) tablet 325 mg PO BID Qty: 60 RF: 0 guaifenesin 100 mg/5 mL Liquid 100 - 200 mg PO TID PRN (Reason: Cough) RF: 0 tamsulosin 0.4 MG capsule 0.8 mg PO QHS RF: 0 Discontinued clopidogrel 75 MG tablet 75 mg PO DAILY RF: 0 Referrals / Follow Up: Raf Storey MD [STAFF PHYSICIAN] - See Referral Note (Establish care with the above or [facility] for [facility]roke follow up and to obtain a P2Y12 assay. ) [facility] [Primary Care Provider] - See Referral Note (Follow up with your Primary care provider at your scheduled appointment on 08/14/2020. ) Disposition Disposition (needs filled in before D/C Order can be placed): Home, Self Care
[2020-08-12] MEDS: Ferrous Sulfate 325 MG Tablet PO (11:04)
[2020-08-12 11:20] LABS: Bedside Glucose 223 mg/dL (70-110)
--- NOTE | 2020-08-12 11:56 | NURSING ---
[employer] savings card given to patient.
--- NOTE | 2020-08-12 13:56 | DS.PCM_ITS ---
Documented by User: Jose MÉNDEZ 08/12/20 14:04 Providers Date of Admission: 08/11/20 Primary Care Physician: [facility] Reason For Visit: SLURRED SPEECH,DYSARTHRIA,SUSPECTED STROKE,HYPOKAL Diagnosis Discharge Diagnosis (1) Dysarthria: Status: Acute Code(s): R47.1 - Dysarthria and anarthria (2) DM type 2 (diabetes mellitus, type 2): Status: Chronic Code(s): E11.9 - Type 2 diabetes mellitus without complications Qualifiers: Qualified Code(s): Z79.4 - intermediate (current) use of insulin (3) Essential (primary) hypertension: Status: Chronic Code(s): I10 - Essential (primary) hypertension (4) Hyperlipidemia: Status: Chronic Code(s): E78.5 - Hyperlipidemia, unspecified (5) Chronic respiratory failure: Status: Chronic Code(s): J96.10 - Chronic respiratory failure, unspecified whether with hypoxia or h ypercapnia Qualifiers: Respiratory failure complication: unspecified whether with hypoxia or hypercapnia Qualified Code(s): J96.10 - Chronic respiratory failure, unspecified whether with hypoxia or hypercapnia (6) Hemiparesis, left: Status: Acute Code(s): G81.94 - Hemiplegia, unspecified affecting left nondominant side (7) 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 Code(s): I25.119 - Atherosclerotic heart disease of [place] coronary artery with unspecified angina pectoris (8) EKATERINA (obstructive sleep apnea): Status: Chronic Code(s): G47.33 - Obstructive sleep apnea (adult) (pediatric) Medications at Discharge Home Medications Humulin R U-500 (Conc) Kwikpen 120 unit SQ BREAKFAST 06/11/18 Humulin R U-500 (Conc) Kwikpen 120 unit SQ DINNER 06/11/18 aspirin 81 mg PO DAILY@0800 06/11/18 atorvastatin 80 mg PO QHS 06/11/18 cholecalciferol (vitamin D3) [Vitamin D3] 3,000 units PO DAILY 06/11/18 escitalopram oxalate 10 mg PO DAILY 06/11/18 finasteride 5 mg PO DAILY 06/11/18 nitroglycerin 0.4 mg SUBLINGUAL Q5M PRN #30 tablet 07/22/18 albuterol sulfate 1 - 2 puff INHALATION 4X/DAY PRN PRN 04/08/20 pantoprazole 40 mg PO BID 05/18/20 acetaminophen [Tylenol] 325 mg PO Q6H PRN PRN 06/22/20 carvedilol 25 mg PO BID 06/22/20 furosemide 40 mg PO DAILY 06/22/20 multivitamin 1 tab PO DAILY 06/22/20 potassium chloride [Klor-Con M20] 20 meq PO DAILY 06/22/20 ranolazine 500 mg PO BID 06/22/20 ferrous sulfate 325 mg PO BID #60 tab 06/23/20 guaifenesin 100 - 200 mg PO TID PRN 07/05/20 tamsulosin 0.8 mg PO QHS 08/10/20 ticagrelor [Brilinta] 60 mg PO BID #60 tab 08/12/20 Hospital Course Summary of Care Provided Minutes Spent on Discharge: 35 Hospital Course: Discharge planning; patient to discharge home with therapy. This provider recommended that the patient follow-up with Dr. Aguirre to establish outpatient neurology care or establish neurology care through the [place] system due to patient financial constraints. 1) Stroke Additional brain CT did not demonstrate any acute infarct or hemorrhage. [facility] t eleneurology service consulted: Believes patient is having a stroke given patient presentation, despite CT readings, recommends discontinuing Plavix, initiating Brilinta and obtaining a P2Y12 assay as an outpatient as well as establishing outpatient neurology of care. Patient not a candidate for brain MRI due to pacemaker. Patient continues to demonstrate dysarthria and left- sided weakness in the upper and lower extremities. Nurse who is taking care of patient has had patient in the past, and reports these are new presentations for this patient. Serial NIH is between 5 and 6. Plan; continue aspirin, discontinue Plavix, initiate Brilinta, follow-up with Dr. Storey as an outpatient within the next 2 weeks to establish Neurology care. 2) chest pain Patient still reporting of intermittent chest pain. Troponins not elevated throughout cycle. EKG did not demonstrate any ischemic changes. Unlikely cardiac in nature. No events overnight on telemetry monitoring. Plan; follow- up with primary care provider within the next 2 weeks. 3) hypokalemia Resolved, currently 3.5. Plan; continue to monitor BMP. 4) CAD status post CABG and stent Continue aspirin, statin, Plavix, carvedilol, Ranexa and Lasix. 5) DM2 POC glucose 264. Plan; hemoglobin A1c ordered, continue basal insulin 6) HTN Stable, continue Coreg and Lasix. 7) COPD/chronic respiratory failure Currently satting 95% on 2 L via nasal cannula. Continue DuoNebs and albuterol as needed. Patient seen by Jose Ramos PA-C, under the supervision of Dr. Short Physical Exam Narrative Patient is a 70-year-old male who is comfortably sitting in a chair, alert and oriented x3. Although patient is alert and oriented x3 his insight into his current condition is is given slurred speech. Const alert, oriented x3 and no apparent distress Nutritional Appearance: obese HEENT normocephalic, head/scalp atraumatic and hearing grossly normal bilaterally Eyes EOMs intact bilaterally and conjunctivae normal Neck no lymphadenopathy, supple and no JVD Resp normal respiratory effort, no retractions, no use of accessory muscles and clear to auscultation bilaterally Cardio regular rate, regular rhythm, no murmurs and no JVD GI normal to inspection, nondistended, normoactive bowel sounds, soft to palpation and non-tender Extremity normal to inspection, full ROM and no clubbing, cyanosis or edema Skin no rashes or lesions noted, no wounds and skin turgor normal Neuro CN's II-XII intact bilaterally Psych affect normal Weight / BMI Weight Weight: 230 lb 6.129 oz Body Mass Index (BMI) 33.0 ABG / Lab / Microbiology Data Result Diagrams: 08/12/20 05:28 08/12/20 05:28 Laboratory: Laboratory Results - last 24 hr 08/11/20 08/11/20 08/12/20 17:16 21:11 05:28 WBC 5.1 RBC 4.08 L Hgb 10.9 L Hct 35.0 L MCV 85.8 MCH 26.7 L MCHC 31.1 L RDW Std Deviation 63.4 H RDW Coeff of Cinda 20.4 H Plt Count 121 L MPV 10.5 Immature Gran % (Auto) 0.400 Neut % (Auto) 73.6 H Lymph % (Auto) 12.7 L Norton % (Auto) 9.4 Eos % (Auto) 3.7 Baso % (Auto) 0.2 Absolute Neuts (auto) 3.8 Absolute Lymphs (auto) 0.65 L Nucleated RBC % 0 Anisocytosis 1+ Sodium Potassium Chloride Carbon Dioxide Anion Gap BUN Creatinine Estim Creat Clear Calc Est GFR (MDRD) Af Amer Est GFR (MDRD) Non-Af BUN/Creatinine Ratio Glucose Calcium POC Glucose 166 H 88 08/12/20 08/12/20 08/12/20 05:28 08:05 11:02 WBC RBC Hgb Hct MCV MCH MCHC RDW Std Deviation RDW Coeff of Cinda Plt Count MPV Immature Gran % (Auto) Neut % (Auto) Lymph % (Auto) Norton % (Auto) Eos % (Auto) Baso % (Auto) Absolute Neuts (auto) Absolute Lymphs (auto) Nucleated RBC % Anisocytosis Sodium 138 Potassium 3.3 L Chloride 100 Carbon Dioxide 31.0 Anion Gap 7 BUN 13 Creatinine 0.67 L Estim Creat Clear Calc 70.97 Est GFR (MDRD) Af Amer 152 Est GFR (MDRD) Non-Af 125 BUN/Creatinine Ratio 19.5 Glucose 139 H Calcium 7.8 L POC Glucose 164 H 223 H Radiography Diagnostic Testing: Radiology Impression Brain CT 08/11/20 05:55 IMPRESSION: No acute intracranial hemorrhage or mass effect. Electronically Signed: Karlos Cabrera MD (Brooks) at 15:46 EDT , Service support , D/C Instructions Discharge Diet: No restrictions Meaningful Use Info Meaningful Use Diagnoses (Choose all that apply): Ischemic CVA CVA Therapy Assessed for PT,OT and/or ST?: Yes Ischemic Stroke Antithrombotic order at d/c?: Yes Dx of Atrial fib/flutter?: No Statins at discharge?: Yes Primary Dx Acute Ischemic CVA?: Yes IV tPA ordered during stay?: No Reason IV t-PA not ordered: Treatment not Indicated Discharge Plan Admission Admit Date/Time: 08/11/20 09:36 Primary Reason for Your Visit: Stroke Attending Provider: Varsha hSort Primary Care Provider: [facility] Instructions Additional Instructions / Restrictions: Patient Problems: Altered Health Status related to Hospitalization Patient Goals: *Optimal Level of Health *Keep Appointments *Medication Compliance *Remain Safe Discharge Orders/Prescriptions Prescriptions: New Brilinta 60 mg tablet 60 mg PO BID Qty: 60 RF: 0 Continued atorvastatin 80 MG tablet 80 mg PO QHS RF: 0 aspirin 81 MG tablet 81 mg PO DAILY@0800 RF: 0 finasteride 5 MG tablet 5 mg PO DAILY RF: 0 escitalopram oxalate 10 MG tablet 10 mg PO DAILY RF: 0 cholecalciferol (vitamin D3) [Vitamin D3] 1,000 UNIT tablet 3,000 units PO DAILY RF: 0 Humulin R U-500 (Conc) Kwikpen 500 UNIT/ML insulin pen 120 unit SQ BREAKFAST RF: 0 Humulin R U-500 (Conc) Kwikpen 500 UNIT/ML insulin pen 120 unit SQ DINNER RF: 0 nitroglycerin 0.4 MG tablet, sublingual 0.4 mg sublingual Q5M PRN (Reason: Chest Pain) Qty: 30 RF: 0 albuterol sulfate 1 INHALER inhaler 1 - 2 puff INHALATION 4X/DAY PRN PRN (Reason: Sob &/Or Wheezing) RF: 0 pantoprazole 40 MG tablet 40 mg PO BID RF: 0 carvedilol 25 MG tablet 25 mg PO BID RF: 0 multivitamin Tablet 1 tab PO DAILY RF: 0 furosemide 40 mg Tablet 40 mg PO DAILY RF: 0 potassium chloride [Klor-Con M20] 20 mEq Tablet,Er Particles/Crystals 20 meq PO DAILY RF: 0 ranolazine 500 mg Tablet Extended Release 12 Hr 500 mg PO BID RF: 0 acetaminophen [Tylenol] 325 MG tablet 325 mg PO Q6H PRN PRN (Reason: Mild pain 1-3/Temp > 100.7 F) RF: 0 ferrous sulfate 325 mg (65 mg iron) tablet 325 mg PO BID Qty: 60 RF: 0 guaifenesin 100 mg/5 mL Liquid 100 - 200 mg PO TID PRN (Reason: Cough) RF: 0 tamsulosin 0.4 MG capsule 0.8 mg PO QHS RF: 0 Discontinued clopidogrel 75 MG tablet 75 mg PO DAILY RF: 0 Referrals / Follow Up: Raf Storey MD [STAFF PHYSICIAN] - See Referral Note (Establish care with the above or a Neurologist in the [place] system for outpatient Stroke follow up and to obtain a P2Y12 assay. ) [facility],[place] [Primary Care Provider] - See Referral Note (Follow up with your Primary care provider at your scheduled appointment on 08/14/2020. ) Disposition Disposition (needs filled in before D/C Order can be placed): Home, Self Care Documented by User: Dr. Varsha Short DO 08/12/20 14:41 Providers Date of Admission: 08/11/20 Reason For Visit: SLURRED SPEECH,DYSARTHRIA,SUSPECTED STROKE,HYPOKAL Medications at Discharge Home Medications Humulin R U-500 (Conc) Kwikpen 120 unit SQ BREAKFAST 06/11/18 Humulin R U-500 (Conc) Kwikpen 120 unit SQ DINNER 06/11/18 aspirin 81 mg PO DAILY@0800 06/11/18 atorvastatin 80 mg PO QHS 06/11/18 cholecalciferol (vitamin D3) [Vitamin D3] 3,000 units PO DAILY 06/11/18 escitalopram oxalate 10 mg PO DAILY 06/11/18 finasteride 5 mg PO DAILY 06/11/18 nitroglycerin 0.4 mg SUBLINGUAL Q5M PRN #30 tablet 07/22/18 albuterol sulfate 1 - 2 puff INHALATION 4X/DAY PRN PRN 04/08/20 pantoprazole 40 mg PO BID 05/18/20 acetaminophen [Tylenol] 325 mg PO Q6H PRN PRN 06/22/20 carvedilol 25 mg PO BID 06/22/20 furosemide 40 mg PO DAILY 06/22/20 multivitamin 1 tab PO DAILY 06/22/20 potassium chloride [Klor-Con M20] 20 meq PO DAILY 06/22/20 ranolazine 500 mg PO BID 06/22/20 ferrous sulfate 325 mg PO BID #60 tab 06/23/20 guaifenesin 100 - 200 mg PO TID PRN 07/05/20 tamsulosin 0.8 mg PO QHS 08/10/20 ticagrelor [Brilinta] 60 mg PO BID #60 tab 08/12/20 Hospital Course Operations None Procedures - (CT and CTA head and neck) Summary of Care Provided Minutes Spent on Discharge: 38 Hospital Course: Mr. Coello is a 70-year-old white male who presented to the emergency department at [facility] on 08/10/2020 with slurred speech and left-sided weakness. According to the patient's he had not been able to talk that morning but it was awake and alert. He was not able to get words out and his speech was extremely slurred. He was fortunately on out of the window for TPA administration upon presentation. A CT of his brain showed no acute infarct or hemorrhage and a CTA of the head and neck showed no hemodynamically significant vascular disease or stenosis. [facility] was consulted and the patient was not given an TPA and it was recommended he be admitted for further stroke work-up. During his hospitalization he did have improving speech although not resolved dysarthria and improved left-sided weakness. He was seen by therapy services during his hospitalization it was recommended that he have inpatient rehab upon discharge. A repeat head CT that was performed in the morning following admission showed no acute intracranial hemorrhage or mass-effect. We were unable to perform an MRI secondary to pacemaker placement. He had a recent 2D echo which was performed in April that showed an ejection fraction of 60% and no other acute findings. We therefore did not repeat his 2D echo. Neurology was reconsulted to evaluate him 24 hours post stroke and they agree that he most likely did have a stroke despite the repeat CT and that an MRI which showed changes. They recommend we change his Plavix to Brilinta, continue his aspirin and obtain a P2Y12 assay prior to discharge to be follow-up as an outpatient. The patient has been on full anticoagulation in the past but did not tolerate this although he is unclear on the reason why. Of note there is some documentation that the patient did complain of chest pain on admission. He had new EKG changes that demonstrated any ischemia and he had negative cycle troponins throughout his stay. His chest pain had resolved prior to discharge. Despite recommendation for further rehabilitation either at acute rehab or TCU the patient was insistent upon discharge home. This was discussed with his and she was agreeable. He was discharged home with left-sided weakness and continued dysarthria that had improved since admission but had not resolved. They reported they understand the risks and were willing to take those risks. He is at high risk for readmission. He is to follow-up with neurology with Dr. Storey in 2 weeks to establish neurology care and for follow-up on his P2Y12 assay. Physical Exam Const alert, oriented x3, no apparent distress and no limitations Constitutional Narrative: Overweight, older white male sitting up in a chair, appears older than stated age, dysarthric with conversation, nontoxic, nursing at bedside General Appearance: cooperative HEENT normocephalic, head/scalp atraumatic, external ears normal, external nose normal and moist oral mucous membranes Eyes PERRL, EOMs intact bilaterally, conjunctivae normal and no scleral icterus General Eye: normal appearance of both eyes Neck no lymphadenopathy, supple, no meningeal signs, no JVD and no carotid bruits Neck Narrative: Trachea midline Lymph Lymphatic: no lymphadenopathy noted Resp normal respiratory effort, normal air movement, no retractions, no use of accessory muscles and clear to auscultation bilaterally Resp Narrative: Diffusely diminished but clear Auscultation: Negative for crackles, rales, rhonchi or wheezes Cardio regular rate, regular rhythm, S1 normal heart sound, S2 normal heart sound, no murmurs, no rub, no gallops, no clicks and no JVD GI normal to inspection, nondistended, normoactive bowel sounds, soft to palpation, non-tender and non-distended; Negative for hepatosplenomegaly GI Narrative: Morbidly obese. Extremity normal to inspection, full ROM and no clubbing, cyanosis or edema Extremity Narrative: Trace edema, no clubbing or cyanosis. Skin no rashes or lesions noted, no wounds, skin turgor normal, no jaundice, no petechiae and no mottling Neuro oriented x3 and CN's II-XII intact bilaterally Neuro Narrative: Left upper extremity pronator drift and weakness, 3+ on proximal upper extremity strength, left lower extremity weakness noted, 3+ on left lower extremity proximal strength, dysarthria, able to move all extremities but not symmetric, strength improved today but dysarthria remains with no significant change Sensorium / Orientation: awake and alert Psych mental status grossly normal and affect normal Appearance: appropriate ABG / Lab / Microbiology Data Result Diagrams: 08/12/20 05:28 08/12/20 05:28 Discharge Plan Admission Admit Date/Time: 08/11/20 09:36 Primary Reason for Your Visit: Stroke Attending Provider: Varsha Short [facility] Provider[facility] Instructions Additional Instructions / Restrictions: Patient Problems: Altered Health Status related to Hospitalization Patient Goals: *Optimal Level of Health *Keep Appointments *Medication Compliance *Remain Safe Discharge Orders/Prescriptions Prescriptions: New Brilinta 60 mg tablet 60 mg PO BID Qty: 60 RF: 0 Continued atorvastatin 80 MG tablet 80 mg PO QHS RF: 0 aspirin 81 MG tablet 81 mg PO DAILY@0800 RF: 0 finasteride 5 MG tablet 5 mg PO DAILY RF: 0 escitalopram oxalate 10 MG tablet 10 mg PO DAILY RF: 0 cholecalciferol (vitamin D3) [Vitamin D3] 1,000 UNIT tablet 3,000 units PO DAILY RF: 0 Humulin R U-500 (Conc) Kwikpen 500 UNIT/ML insulin pen 120 unit SQ BREAKFAST RF: 0 Humulin R U-500 (Conc) Kwikpen 500 UNIT/ML insulin pen 120 unit SQ DINNER RF: 0 nitroglycerin 0.4 MG tablet, sublingual 0.4 mg sublingual Q5M PRN (Reason: Chest Pain) Qty: 30 RF: 0 albuterol sulfate 1 INHALER inhaler 1 - 2 puff INHALATION 4X/DAY PRN PRN (Reason: Sob &/Or Wheezing) RF: 0 pantoprazole 40 MG tablet 40 mg PO BID RF: 0 carvedilol 25 MG tablet 25 mg PO BID RF: 0 multivitamin Tablet 1 tab PO DAILY RF: 0 furosemide 40 mg Tablet 40 mg PO DAILY RF: 0 potassium chloride [Klor-Con M20] 20 mEq Tablet,Er Particles/Crystals 20 meq PO DAILY RF: 0 ranolazine 500 mg Tablet Extended Release 12 Hr 500 mg PO BID RF: 0 acetaminophen [Tylenol] 325 MG tablet 325 mg PO Q6H PRN PRN (Reason: Mild pain 1-3/Temp > 100.7 F) RF: 0 ferrous sulfate 325 mg (65 mg iron) tablet 325 mg PO BID Qty: 60 RF: 0 guaifenesin 100 mg/5 mL Liquid 100 - 200 mg PO TID PRN (Reason: Cough) RF: 0 tamsulosin 0.4 MG capsule 0.8 mg PO QHS RF: 0 Discontinued clopidogrel 75 MG tablet 75 mg PO DAILY RF: 0 Referrals / Follow Up: Raf Storey MD [STAFF PHYSICIAN] - See Referral Note ([facility]abl[facility] care with the [facility] for [facility] follow up and to obtain a P2Y12 assay. ) [facility] [Primary Care Provider] - See Referral Note (Follow up with your Primary care provider at your scheduled appointment on 08/14/2020. ) Disposition Disposition (needs filled in before D/C Order can be placed): Home, Self Care Charges/Coding Visit Charges Inpatient E&M: 99011 Disch Hosp
--- NOTE | 2020-08-13 09:02 | CASEMGMT ---
NAWAF order placed and H&P, NAWAF order, d/c summ/instructions faxed to [facility] as pt left over weekend. SStzeynep BERRY CM
--- NOTE | 2020-08-13 14:12 | CASEMGMT ---
RN CM Discharge Follow-up Phone Call: SHAHZAD: Charmaine Strata: 3 Call Date: 08/13/20 Discharge Date: 08/12/20 Time of Call: 1410 Duration: 1 min Admitting Diagnosis: Hypokalemia, suspected stroke RN CM attempted to complete follow-up phone call after recent hospitalization. No answer, unable to leave message due to voicemail not being setup. CM will attempt to call again at later time.
== END 2020-08-12 12:37 | disposition home or self-care (01) | DRG 65 ==
LOC: ED 16:31 → PCU 16:54
PROVIDERS: Physician Assistant; Admitting Provider Hospitalist; Emergency Provider Emergency Medicine; Visit Provider Internal Medicine
DX: I63.9 Cerebral infarction, unspecified (principal); G81.94 Hemiplegia, unspecified affecting left nondominant side; J96.11 Chronic respiratory failure with hypoxia; E87.6 Hypokalemia; R47.1 Dysarthria and anarthria; G47.33 Obstructive sleep apnea (adult) (pediatric); I25.119 Atherosclerotic heart disease of native coronary artery with unspecified angina pectoris; E78.5 Hyperlipidemia, unspecified; I10 Essential (primary) hypertension; E11.9 Type 2 diabetes mellitus without complications; D64.9 Anemia, unspecified; E66.9 Obesity, unspecified; N40.0 Benign prostatic hyperplasia without lower urinary tract symptoms; K21.9 Gastro-esophageal reflux disease without esophagitis; J44.9 Chronic obstructive pulmonary disease, unspecified; R07.9 Chest pain, unspecified; Z79.4 Long term (current) use of insulin; Z95.0 Presence of cardiac pacemaker; Z68.33 Body mass index [BMI] 33.0-33.9, adult; Z79.02 Long term (current) use of antithrombotics/antiplatelets; Z79.82 Long term (current) use of aspirin; Z87.891 Personal history of nicotine dependence; Z88.8 Allergy status to other drugs, medicaments and biological substances; Z90.49 Acquired absence of other specified parts of digestive tract; Z95.1 Presence of aortocoronary bypass graft; Z95.5 Presence of coronary angioplasty implant and graft; Z97.4 Presence of external hearing-aid; Z96.652 Presence of left artificial knee joint; R29.705 NIHSS score 5
CPT/HCPCS: 36415; 70450; 70496; 70498; 71045; 80048; 82962; 83036; 84484; 85025; 85610; 85730; 92507; 92523; 92526; 93005; 94640; 97161; 97166; 97535; 97802; 99251; 99285; J7030; Q9967; A4216; G0463; J2405

== ENCOUNTER 2020-08-23 11:31 | Emergency (ER) | payer OTHER, SELFPAY ==
[2020-08-23 11:33] VITALS: BP 171/84; PULSE 62; RESP 24; TEMP 36.6; O2SAT 82; BMI 32.5
[2020-08-23 11:39] VITALS: BP 171/84; PULSE 62; RESP 24; TEMP 36.6; O2SAT 82
--- NOTE | 2020-08-23 11:43 | ED.RN ---
Dr Oliveira at bedside assessing pt. Pt point to chest, lt arm and lt leg for pain.
[2020-08-23 11:45] VITALS: BP 175/76; PULSE 60; RESP 18; RESP 20; TEMP 36.6; O2SAT 96
--- NOTE | 2020-08-23 11:45 | EKG12_ITS ---
Test Reason : ULTA Blood Pressure : / mmHG Vent. Rate : 062 BPM Atrial Rate : 070 BPM P-R Int : 300 ms QRS Dur : 188 ms QT Int : 526 ms P-R-T Axes : 000 -63 099 degrees QTc Int : 533 ms AV dual-paced rhythm with prolonged AV conduction with occasional ventricular-paced complexes Abnormal ECG Confirmed by PADILLA GUALLPA, CALI ([id number]), photo editor NADINE FERRER ([id number]) on 08/27/2020 1:02:21 PM Referred By: JOHN Confirmed By:CALI CAUSEY MD
--- NOTE | 2020-08-23 12:00 | ED.RN ---
signed dnr papers. Is willing to do longterm placement
[2020-08-23 12:07] LABS: Absolute Neutrophil Count 3.1 X10^3/uL (2.0-7.7); Basophil# 0.01 X10^3/uL; Basophil% 0.2 % (0-1); Eosinophil# 0.33 X10^3/uL; Eosinophils% 7.3 % (0-5); Hematocrit 35.8 % (40-54); Lymphocyte % 17.6 % (19-41); Mean Corp Hgb Conc 30.7 g/dL (32-36); Mean Corpuscular Hgb 27.2 pg (27.0-32.0); Mean Corpuscular Volume 88.4 fL (80-94); Mean Platelet Vol. 9.7 fl (6.2-12.0); Monocyte# 0.24 X10^3/uL; Monocyte% 5.3 % (0-10); NRBC Flagged by Analyzer 0 % (0-5); Neutrophil # 3.14 X10^3/uL (2.7-7.7); Neutrophil % 69.2 % (47-70); Platelet Count 207 K/mm3 (150-450); RBC Distribution Width CV 19.6 % (11.6-14.6); RBC Distribution Width SD 62.2 fl (35.1-43.9); Red Blood Count 4.05 M/mm3 (4.6-6.2); White Blood Count 4.5 K/mm3 (4.4-11.0)
--- NOTE | 2020-08-23 12:09 | CT_ITS ---
STUDY: CT BRAIN WITHOUT CONTRAST REASON FOR EXAM: Male, 70 years old. Altered Mental status RADIATION DOSAGE (If Supplied By Facility): CTDIvol = ( 44.99 ) mGy, DLP = ( 846.73 ) mGycm TECHNIQUE: Transaxial CT imaging of the brain was performed without administration of intravenous contrast material. Individualized dose optimization techniques were used for this CT. COMPARISON: Comparison is made with prior study dated 08/11/2020. FINDINGS: Normal soft tissue structures. Normal calvarium. There is mild cerebral atrophy with widening of the extra-axial spaces and ventricular dilatation. There are areas of decreased attenuation within the white matter tracts of the supratentorial brain, consistent with microvascular disease changes. Normal basal ganglia and thalami. Normal brainstem. Normal cerebellum. There is no intracranial hemorrhage. There are no findings of an acute ischemic infarction. Partial opacification of the ethmoid sinuses bilaterally. CT/Brain/Head without Contrast IMPRESSION: Chronic involutional changes of the brain. Partial opacification of the ethmoid sinuses bilaterally. Electronically Signed: Mick García MD at 12:23 EDT , Service support ,
--- NOTE | 2020-08-23 12:11 | RAD_ITS ---
STUDY: X-RAY CHEST REASON FOR EXAM: Male, 70 years old. Chest pain. Mental status changes. Cough and dyspnea. TECHNIQUE: Single AP portable view of the chest. COMPARISON: Comparison is made with prior study dated 08/10/2020. FINDINGS: EKG electrodes are seen. Stable pleural-parenchymal changes in the left hemithorax. There is evidence of a numerous left rib fractures and plate and screw fixation device. Sternal cerclage wires and vascular clips are present from a prior sternotomy and coronary artery bypass graft procedure (CABG). A left-sided dual-chamber pacemaker is seen. Normal mediastinum and cata. Normal visualized pulmonary arteries. Normal visualized aortic arch and descending thoracic aorta. Normal visualized thoracic spine. Normal visualized ribs, clavicles, and shoulders. There is no demonstrated abnormality of the visualized soft tissue structures of the upper abdomen. RAD/Chest 1 View (Portable) IMPRESSION: Stable pleural parenchymal changes in the left hemithorax. No acute abnormality is seen. Electronically Signed: Mick García MD at 12:28 EDT , Service support ,
[2020-08-23 12:16] LABS: Allen Test Positive; Base Excess 11 mmol/L (-2 to +2); Bicarbonate 35.3 mmol/L (22-26); Blood Gas Specimen Type ART; PO2 60 mmHG (75-100); SITE R Radial; SO2 90 % (95-99); Total Carbon Dioxide 37 mmol/L; pCO2 56.2 mmHg (35-45); pH 7.41 (7.35-7.45)
--- NOTE | 2020-08-23 12:23 | EDS_ITS ---
HPI History of Present Illness Chief Complaint: General Illness Narrative Narrative: 70-year-old male presenting with altered mental status. His states that he has a history of left-sided hemiparesis from strokes, diabetes, CAD, hypertension, EKATERINA, respiratory failure presenting with altered mental status. Patient apparently was walking with the home health care nurse yesterday and speaking with her and was able to make it to the mailbox. At about 8 PM he stopped talking which his describes as a spell. She laid him down and today he has had no change. He is able to communicate some by nodding but is unable to speak. His says he does this sometimes. There is no known history of trauma. When I asked if anything hurts he said his chest by pointing to it. His states his chest always hurts. [facility] Medical History Abnormal EKG Anemia Atherosclerotic heart disease [place] coronary artery w/angina pectoris BiPAP (biphasic positive airway pressure) dependence Chest pain Chronic respiratory failure Congestive heart failure (CHF) Diabetes Essential (primary) hypertension Former smoker History of fractured rib Hyperlipidemia Myocardial infarct Obesity On home oxygen therapy EKATERINA (obstructive sleep apnea) Pacemaker Pulmonary embolism Stroke/cerebrovascular accident Wears hearing aid in both ears Home Medications Humulin R U-500 (Conc) Kwikpen 120 unit SQ BREAKFAST 06/11/18 [History Last Taken 08/09/20] Humulin R U-500 (Conc) Kwikpen 120 unit SQ DINNER 06/11/18 [History Last Taken 08/09/20] aspirin 81 mg PO DAILY@0800 06/11/18 [History Last Taken 08/09/20] atorvastatin 80 mg PO QHS 06/11/18 [History Last Taken 08/09/20] cholecalciferol (vitamin D3) [Vitamin D3] 3,000 units PO DAILY 06/11/18 [History Last Taken 08/09/20] escitalopram oxalate 10 mg PO DAILY 06/11/18 [History Last Taken 08/09/20] finasteride 5 mg PO DAILY 06/11/18 [History Last Taken 08/09/20] nitroglycerin 0.4 mg SUBLINGUAL Q5M PRN #30 tablet 07/22/18 [Rx Last Taken 01/17/20] albuterol sulfate 1 - 2 puff INHALATION 4X/DAY PRN PRN 02/21/21 [History Last Taken 07/05/20] pantoprazole 40 mg PO BID 05/18/20 [History Last Taken 08/09/20] acetaminophen [Tylenol] 325 mg PO Q6H PRN PRN 06/22/20 [History Last Taken 07/05/20] carvedilol 25 mg PO BID 06/22/20 [History Last Taken 08/09/20] furosemide 40 mg PO DAILY 06/22/20 [History Last Taken 08/09/20] multivitamin 1 tab PO DAILY 06/22/20 [History Last Taken 08/09/20] potassium chloride [Klor-Con M20] 20 meq PO DAILY 06/22/20 [History Last Taken 08/09/20] ranolazine 500 mg PO BID 06/22/20 [History Last Taken 08/09/20] ferrous sulfate 325 mg PO BID #60 tab 06/23/20 [Rx Last Taken 08/09/20] guaifenesin 100 - 200 mg PO TID PRN 07/05/20 [History Last Taken 1 Week Ago ~08/03/20] tamsulosin 0.8 mg PO QHS 08/10/20 [History Last Taken 08/09/20] ticagrelor [Brilinta] 60 mg PO BID #60 tab 08/12/20 [Rx Last Taken Unknown] Allergy/AdvReac Type Severity Reaction Status Date / Time ezetimibe Allergy Unknown Verified 08/10/20 15:00 Fish Containing Products Allergy Unknown Verified 08/10/20 15:00 glyburide Allergy Unknown Verified 08/10/20 15:00 isosorbide Allergy PT UNSURE Verified 08/10/20 15:00 OF REACTION lisinopril Allergy Unknown Verified 08/10/20 15:00 metformin Allergy Nausea Verified 08/10/20 15:00 metoprolol Allergy Unknown Verified 08/10/20 15:00 simvastatin Allergy Unknown Verified 08/10/20 15:00 Family History Father No problems noted. Surgical History H/O coronary artery bypass surgery History of cholecystectomy History of coronary artery stent placement History of knee replacement procedure of left knee History of permanent cardiac pacemaker placement (09/10/11) Social History household members: spouse Smoking Status: Former smoker substance use type: does not use ROS ROS ED Constitutional Constitutional ED: Denies chills or fever(s) Eyes Eyes: Denies blurry vision or change in vision Cardiovascular Cardiovascular: Reports chest pain; Denies palpitations Respiratory/Chest Respiratory/Chest: Reports dyspnea; Denies cough or sputum Gastrointestinal Gastrointestinal: Denies abdominal pain, nausea or vomiting Musculoskeletal Musculoskeletal: Denies arthralgias or myalgias Integumentary Denies abscess or rash Neurologic Neurologic: Reports weakness; Denies headache(s) Psychiatric Psychiatric: Reports depression EXAM Physical Exam Const Vital Signs: 08/23/20 11:33 08/23/20 11:39 08/23/20 11:45 Temperature 97.8 F 97.8 F 98 F Temperature Source Oral Oral Temporal Pulse Rate 62 62 60 Respiratory Rate 24 H 24 H 20 H Blood Pressure 171/84 H 171/84 H 175/76 H Blood Pressure Mean 113 113 109 Pulse Ox 82 82 96 Oxygen Delivery Method Room Air Room Air Nasal Cannula Oxygen Flow Rate (L/min) 4 08/23/20 12:00 Temperature Temperature Source Pulse Rate Respiratory Rate Blood Pressure Blood Pressure Mean Pulse Ox Oxygen Delivery Method Nasal Cannula Oxygen Flow Rate (L/min) 4 Positive obese General Appearance ED: NAD Nutritional Appearance: obese HEENT Reports moist mucous membranes Negative for trauma Eyes PERRL and EOMs intact bilaterally General Eye ED: Negative for pale conjunctiva or scleral icterus Chest Wall inspection of chest normal and palpation of chest normal Resp normal respiratory effort and clear to auscultation bilaterally Cardio regular rate and regular rhythm GI GI Narrative: Not apparently tender Extremity normal to inspection General Extremety ED: Negative for tenderness Neuro Sensorium / Orientation: alert and orientation impaired Skin no rashes or lesions noted and no wounds MDM MDM MDM Narrative Medical decision making narrative: Patient presenting with altered mental status. Initially he was having trouble speaking. His did tell me that his [facility] doctor told him that this would be happening often. She calls them spells. Apparently he had been this way since last evening. His vital signs have been stable. His ABG did show his PO2 was low. Apparently he is on 2 L while resting and 3 L while ambulating. His O2 was turned up to 4 L. Patient's pulse ox stayed in the low 90s. Patient did start becoming more responsive and stated his oxygen was too high and wanted it turned down. He is talking in following commands. He states that he wants to go home. Patient EKG was paced rhythm at 62 bpm without signs of ischemic change as interpreted by myself. Chest x-ray as interpreted by myself shows no acute cardiopulmonary process. The radiologist does agree. Patient's troponin was negative and since he has been like this all night I do not believe he needs a repeat troponin. Patient has no leukocytosis. His H&H are stable. Platelets are normal. Renal function and electrolytes are normal with exception of low magnesium which was repleted. Patient was told he is already maxed out on medical therapy if this was a TIA. He is counseled to continue his medications. He is to follow-up with his [facility] physician. Impression: 1. Altered mental status 2. TIA 3. Chest pain 4. Hypomagnesemia Lab Data Attestation: I reviewed the patient's lab results. Labs: Laboratory Results - last 24 hr 08/23/20 08/23/20 11:40 11:40 WBC 4.5 RBC 4.05 L Hgb 11.0 L Hct 35.8 L MCV 88.4 MCH 27.2 MCHC 30.7 L RDW Std Deviation 62.2 H RDW Coeff of Cinda 19.6 H Plt Count 207 MPV 9.7 Immature Gran % (Auto) 0.400 Neut % (Auto) 69.2 Lymph % (Auto) 17.6 L [place] % (Auto) 5.3 Eos % (Auto) 7.3 H Baso % (Auto) 0.2 Absolute Neuts (auto) 3.1 Absolute Lymphs (auto) 0.80 L Nucleated RBC % 0 Sodium 140 Potassium 3.5 Chloride 100 Carbon Dioxide 39.0 H Anion Gap 1 L BUN 15 Creatinine 0.74 Estim Creat Clear Calc 75.44 Est GFR (MDRD) Af Amer 134 Est GFR (MDRD) Non-Af 110 BUN/Creatinine Ratio 20.2 H Glucose 203 H Calcium 8.2 L Magnesium 1.5 L Troponin I High Sens 21.6 ABG Data ABG results: ABG 08/23/20 12:08 Specimen Type ART Sample Site R Radial pH 7.41 Bicarbonate Actual 35.3 H Total CO2 37 Base Excess 11 H O2 Saturation 90 L ABG pCO2 56.2 H ABG pO2 60 L Stefano Test Positive Liter Flow 4.0 Radiography Diagnostic Testing: Radiology Impression Brain CT 08/23/20 12:09 IMPRESSION: Chronic involutional changes of the brain. Partial opacification of the ethmoid sinuses bilaterally. Electronically Signed: Mick García MD at 12:23 EDT , Service support , Chest X-Ray 08/23/20 12:11 IMPRESSION: Stable pleural parenchymal changes in the left hemithorax. No acute abnormality is seen. Electronically Signed: Mick García MD at 12:28 EDT , Service support , Discharge Plan Triage Chief Complaint: General Illness ED Provider: Cristian lOiveira Dx/Rx/DC Orders Instructions: Discharge Instructions for ..., ED Confusion, ED Chest Pain, Uncertain Cause, ED Hypokalemia Prescriptions: No Action atorvastatin 80 MG tablet 80 mg PO QHS RF: 0 aspirin 81 MG tablet 81 mg PO DAILY@0800 RF: 0 finasteride 5 MG tablet 5 mg PO DAILY RF: 0 escitalopram oxalate 10 MG tablet 10 mg PO DAILY RF: 0 cholecalciferol (vitamin D3) [Vitamin D3] 1,000 UNIT tablet 3,000 units PO DAILY RF: 0 Humulin R U-500 (Conc) Kwikpen 500 UNIT/ML insulin pen 120 unit SQ BREAKFAST RF: 0 Humulin R U-500 (Conc) Kwikpen 500 UNIT/ML insulin pen 120 unit SQ DINNER RF: 0 nitroglycerin 0.4 MG tablet, sublingual 0.4 mg sublingual Q5M PRN (Reason: Chest Pain) Qty: 30 RF: 0 albuterol sulfate 1 INHALER inhaler 1 - 2 puff INHALATION 4X/DAY PRN PRN (Reason: Sob &/Or Wheezing) RF: 0 pantoprazole 40 MG tablet 40 mg PO BID RF: 0 carvedilol 25 MG tablet 25 mg PO BID RF: 0 multivitamin Tablet 1 tab PO DAILY RF: 0 furosemide 40 mg Tablet 40 mg PO DAILY RF: 0 potassium chloride [Klor-Con M20] 20 mEq Tablet,Er Particles/Crystals 20 meq PO DAILY RF: 0 ranolazine 500 mg Tablet Extended Release 12 Hr 500 mg PO BID RF: 0 acetaminophen [Tylenol] 325 MG tablet 325 mg PO Q6H PRN PRN (Reason: Mild pain 1-3/Temp > 100.7 F) RF: 0 ferrous sulfate 325 mg (65 mg iron) tablet 325 mg PO BID Qty: 60 RF: 0 guaifenesin 100 mg/5 mL Liquid 100 - 200 mg PO TID PRN (Reason: Cough) RF: 0 tamsulosin 0.4 MG capsule 0.8 mg PO QHS RF: 0 Brilinta 60 mg tablet 60 mg PO BID Qty: 60 RF: 0 [facility] [facility] - Disposition Disposition: Home, Self Care
[2020-08-23 12:36] LABS: Anion Gap 1 (5-15); BUN 15 mg/dL (7-18); BUN/Creat Ratio 20.2 RATIO (10-20); Calcium,Total 8.2 mg/dL (8.5-10.1); Chloride 100 mmol/L (98-107); Creatinine, Serum 0.74 mg/dL (0.70-1.30); EST Glomerular Filtration Rate 110 mL/min (>60); Est Glom Filt Rate - Afr Amer 134 mL/min (>60); Estimated Creatinine Clearance 75.44 ml/min; Glucose 203 mg/dL (74-106); Magnesium 1.5 mg/dL (1.6-2.6); Potassium 3.5 mmol/L (3.5-5.1); Sodium Level 140 mmol/L (136-145); Troponin-I HS 21.6 pg/mL (3.0-78.5)
[2020-08-23 14:28] VITALS: BP 162/79; PULSE 58; RESP 20; O2SAT 98
[2020-08-23] MEDS: Magnesium Chloride 64 MG Delay Rel.Tablet 128 MG PO (14:28)
--- NOTE | 2020-08-23 14:35 | CM.ED ---
SW Note: RN Jeannette advised that patient has frequently come to the Emergency Room and may need care plan or placement. SW reviewed chart. SW received note that patient's said that if patient continues to be in current situation he may need SNF. SW met with patient and his . Patient was talking. said that both she and patient did not want him going to SNF. said that she felt safe taking patient home at discharge. Patient said that he felt safe going home. Patient has home health via [facility]. PT and RN from [facility] were just there yesterday. said that he was at [facility] and [facility] in the past. said that if patient needed SNF they would choose [facility]. Patient said they worked with me in regards to staff at [facility]. SW educated that patient's could call and speak to admission staff at SNF for placement. Patient was advised that hospital is available to provide for patient's medical needs or concerns. Patient said that he has appointment next week with the psych which his said was the neurologist. did ask about Transitional Care Program and this chief writer gave them a brochure. SW also made copy of new DNR that patient had put in his medical records for their personal record. Patient and both verbalized no concerns regarding going home and did not want SNF placement. SW advised that this chief writer and [facility] staff are available in the future. Plan: Home [facility] REN[facility]
== END 2020-08-23 14:31 | disposition home or self-care (01) ==
PROVIDERS: Emergency Provider Student in an Organized Health Care Education/Training Program
DX: R41.82 Altered mental status, unspecified (principal); G45.9 Transient cerebral ischemic attack, unspecified; R07.9 Chest pain, unspecified; E83.42 Hypomagnesemia; E66.9 Obesity, unspecified; I25.119 Atherosclerotic heart disease of native coronary artery with unspecified angina pectoris; Z87.891 Personal history of nicotine dependence; Z95.0 Presence of cardiac pacemaker
CPT/HCPCS: 36600; 70450; 71045; 80048; 82803; 83735; 84484; 85025; 93005; 99285; J7030; A4216

== ENCOUNTER 2021-01-05 18:32 | Emergency (ER) | payer OTHER, SELFPAY ==
[2021-01-05 18:33] VITALS: BP 143/49; PULSE 64; RESP 18; TEMP 36.6; O2SAT 90; BMI 33.0
[2021-01-05 19:19] VITALS: PULSE 60; RESP 18; O2SAT 97
--- NOTE | 2021-01-05 19:26 | EKG12_ITS ---
Test Reason : CP Blood Pressure : / mmHG Vent. Rate : 061 BPM Atrial Rate : 214 BPM P-R Int : 352 ms QRS Dur : 120 ms QT Int : 434 ms P-R-T Axes : 000 -44 081 degrees QTc Int : 436 ms Atrial-paced rhythm with prolonged AV conduction Left axis deviation ST & T wave abnormality, consider anterior ischemia Abnormal ECG Confirmed by PADILLA GUALLPA, CALI ([id number]), writer editor NADINE FERRER ([id number]) on 01/07/2021 1:27:36 PM Referred By: DON Confirmed By:CALI CAUSEY MD
--- NOTE | 2021-01-05 19:27 | EDS_ITS ---
HPI History of Present Illness Chief Complaint: Chest Pain Detail of Chief Complaint: Chest pain Informant: patient Onset/Context/Timing Current Severity: Severe Narrative Narrative: Patient presents to the emergency department chief complaint chest pain that started 4 days ago. Patient describes it as across his chest and sharp and at times worse with deep breath. He denies any fever. He has had a bit of a cough. He has not had the Covid vaccine. Patient has history of coronary artery disease and has had a four-vessel CABG in 2006. Patient has history of cardiac stent. Patient has history of pacemaker. Patient has been seen in this emergency department multiple times for similar complaint. Patient tells me he had a heart catheterization earlier this year and it was unrema rkable. Prior Similar Symptoms: Yes PFSH PFSH Medical History Abnormal EKG Anemia Atherosclerotic heart disease [place] coronary artery w/angina pectoris BiPAP (biphasic positive airway pressure) dependence Chest pain Chronic respiratory failure Congestive heart failure (CHF) Diabetes Essential (primary) hypertension Former smoker History of fractured rib Hyperlipidemia Myocardial infarct Obesity On home oxygen therapy EKATERINA (obstructive sleep apnea) Pacemaker Pulmonary embolism Stroke/cerebrovascular accident Wears hearing aid in both ears Home Medications Humulin R U-500 (Conc) Kwikpen 120 unit SQ BREAKFAST 06/11/18 [History Last Taken 08/09/20] Humulin R U-500 (Conc) Kwikpen 120 unit SQ DINNER 06/11/18 [History Last Taken 08/09/20] aspirin 81 mg PO DAILY@0800 06/11/18 [History Last Taken 08/09/20] atorvastatin 80 mg PO QHS 06/11/18 [History Last Taken 08/09/20] cholecalciferol (vitamin D3) [Vitamin D3] 3,000 units PO DAILY 06/11/18 [History Last Taken 08/09/20] escitalopram oxalate 10 mg PO DAILY 06/11/18 [History Last Taken 08/09/20] finasteride 5 mg PO DAILY 06/11/18 [History Last Taken 08/09/20] nitroglycerin 0.4 mg SUBLINGUAL Q5M PRN #30 tablet 07/22/18 [Rx Last Taken 01/17/20] albuterol sulfate 1 - 2 puff INHALATION 4X/DAY PRN PRN 04/08/20 [History Last Taken 07/05/20] pantoprazole 40 mg PO BID 05/18/20 [History Last Taken 08/09/20] acetaminophen [Tylenol] 325 mg PO Q6H PRN PRN 06/22/20 [History Last Taken 07/05/20] carvedilol 25 mg PO BID 06/22/20 [History Last Taken 08/09/20] furosemide 40 mg PO DAILY 06/22/20 [History Last Taken 08/09/20] multivitamin 1 tab PO DAILY 06/22/20 [History Last Taken 08/09/20] potassium chloride [Klor-Con M20] 20 meq PO DAILY 06/22/20 [History Last Taken 08/09/20] ranolazine 500 mg PO BID 06/22/20 [History Last Taken 08/09/20] ferrous sulfate 325 mg PO BID #60 tab 06/23/20 [Rx Last Taken 08/09/20] guaifenesin 100 - 200 mg PO TID PRN 07/05/20 [History Last Taken 1 Week Ago ~08/03/20] tamsulosin 0.8 mg PO QHS 08/10/20 [History Last Taken 08/09/20] ticagrelor [Brilinta] 60 mg PO BID #60 tab 08/12/20 [Rx Last Taken Unknown] Allergy/AdvReac Type Severity Reaction Status Date / Time ezetimibe Allergy Unknown Verified 01/05/21 18:35 Fish Containing Products Allergy Unknown Verified 01/05/21 18:35 glyburide Allergy Unknown Verified 01/05/21 18:35 isosorbide Allergy PT UNSURE Verified 01/05/21 18:35 OF REACTION lisinopril Allergy Unknown Verified 01/05/21 18:35 metformin Allergy Nausea Verified 01/05/21 18:35 metoprolol Allergy Unknown Verified 01/05/21 18:35 simvastatin Allergy Unknown Verified 01/05/21 18:35 Family History Father No problems noted. Surgical History H/O coronary artery bypass surgery History of cholecystectomy History of coronary artery stent placement History of knee replacement procedure of left knee History of permanent cardiac pacemaker placement (09/10/11) Social History household members: spouse Smoking Status: Former smoker substance use type: does not use ROS ROS ED Review of Systems ROS Unobtainable: other Constitutional Constitutional ED: Reports lethargy; Denies chills, fever(s), sweats or weight loss Eyes Eyes: Denies blurry vision, change in vision or diplopia ENT ENT ED: Denies rhinorrhea or sore throat Cardiovascular Cardiovascular: Reports chest pain and racing heartbeat; Denies orthopnea Respiratory/Chest Respiratory/Chest: Reports cough, dyspnea and dyspnea on exertion; Denies orthopnea or sputum Gastrointestinal Gastrointestinal: Denies abdominal pain, diarrhea, nausea or vomiting Genitourinary Genitourinary ED: Denies dysuria, hematuria or urinary frequency Musculoskeletal Musculoskeletal: Denies arthralgias, back pain, myalgias or neck pain Integumentary Denies abscess, Abrasions or rash Neurologic Neurologic: Denies headache(s) or weakness Psychiatric Psychiatric: Denies anxiety, depression or suicidal thoughts Endocrine Endocrinology: Denies polydipsia, polyphagia or polyuria Hematologic/Lymphatic Hematologic/Lymphatic: Denies easy bleeding, easy bruising or lymphadenopathy Allergic/Immunologic Allergic/Immunologic ED: Denies mouth swelling, tongue swelling or urticaria EXAM Physical Exam Const Vital Signs: 01/05/21 18:33 01/05/21 19:19 01/05/21 19:30 Temperature 98 F Temperature Source Temporal Pulse Rate 64 60 Respiratory Rate 18 18 Respiratory Effort Short of Breath Respiratory Pattern Normal Blood Pressure 143/49 H Blood Pressure Mean 80 Pulse Ox 90 97 98 Oxygen Delivery Method Room Air Nasal Cannula Nasal Cannula Oxygen Flow Rate (L/min) 2 2 01/05/21 19:44 Temperature Temperature Source Pulse Rate Respiratory Rate Respiratory Effort Respiratory Pattern Blood Pressure 130/68 H Blood Pressure Mean 88 Pulse Ox Oxygen Delivery Method Oxygen Flow Rate (L/min) Positive well nourished and well developed General Appearance ED: well developed and NAD HEENT Reports TM's clear and moist mucous membranes normocephalic and atraumatic; Negative for trauma or tenderness Tympanic Membrane ED: Yes TM's clear Eyes PERRL and EOMs intact bilaterally General Eye ED: Negative for pale conjunctiva or scleral icterus Neck no lymphadenopathy, supple and no JVD General: Negative for tenderness Chest Wall inspection of chest normal and palpation of chest normal Chest: Negative for tenderness Resp normal respiratory effort and clear to auscultation bilaterally Effort and Inspection: Negative for respiratory distress or pain with movement Auscultation: Negative for rhonchi, wheezes or diminished lung sounds Cardio regular rate, regular rhythm, S1 normal heart sound, S2 normal heart sound and no murmurs Peripheral Pulses: pulses 2+ throughout GI normal to inspection, nondistended, normoactive bowel sounds, soft to palpation, non-tender, non-distended and no masses Back/Spine no CVA tenderness and no thoracic nor lumbar tenderness Extremity normal to inspection General Extremety ED: Negative for edema General Extremity: Negative for edema Neuro oriented x3, CN's II-XII intact bilaterally, no sensory deficits noted and gait normal Sensorium / Orientation: awake, alert, oriented to person, oriented to place and oriented to time Motor Exam: strength 5/5 throughout and strength abnormal Psych mental status grossly normal Skin no rashes or lesions noted and no wounds Heart Score History: Slightly/Non-Suspicious ECG: Normal Age: >/= 65 years Risk Factors: >/= 3 Risk Factors or History of CAD Troponin: </= Normal Limit Score: 4 MDM MDM MDM Narrative Medical decision making narrative: IV line was established on arrival. Patient was medicated with morphine. Patient received aspirin. Patient's work-up in the emergency department is unremarkable. He has a normal troponin despite pain for 4 days. He had a normal D-dimer when corrected for age. Chest x-ray is unremarkable. I suspect likely musculoskeletal cause for his pain. Patient has a heart score of 4. He is advised to follow-up with his primary care physician within next 3 to 5 days. He is to return if worsening pain or condition should worsen anyway. Lab Data Attestation: I reviewed the patient's lab results. Labs: Laboratory Results - last 24 hr 01/05/21 01/05/21 01/05/21 19:15 19:15 19:15 WBC 5.5 RBC 3.88 L Hgb 12.5 L Hct 38.3 L MCV 98.7 H MCH 32.2 H MCHC 32.6 RDW Std Deviation 48.6 H RDW Coeff of Cinda 13.3 Plt Count 156 MPV 10.5 Immature Gran % (Auto) 0.400 Neut % (Auto) 72.1 H Lymph % (Auto) 17.8 L [place] % (Auto) 6.9 Eos % (Auto) 2.4 Baso % (Auto) 0.4 Absolute Neuts (auto) 4.0 Absolute Lymphs (auto) 0.98 Nucleated RBC % 0 D-Dimer Quant (PE/DVT) 0.50 H Sodium 141 Potassium 4.1 Chloride 104 Carbon Dioxide 32.0 Anion Gap 5 BUN 24 H Creatinine 1.08 Estim Creat Clear Calc 65.72 Est GFR (MDRD) Af Amer 87 Est GFR (MDRD) Non-Af 72 BUN/Creatinine Ratio 22.2 H Glucose 195 H Calcium 8.5 Troponin I High Sens 15 Radiography Chest X-Ray - ED: 1 View Diagnostic Testing: Clinical Impression(s) from Imaging Studies Chest X-Ray 01/05/21 19:50 IMPRESSION: No acute cardiopulmonary process. Electronically Signed: Karlos Cabrera MD ([place]) at 20:25 EST , Service support , 1 view chest x-ray obtained interpreted by myself as no acute disease process. Radiology in agreement. EKG Initial EKG: Attestation: I personally reviewed and interpreted this EKG as follows: Comments: Atrially paced rhythm with nonspecific ST changes Discharge Plan Triage Chief Complaint: Chest Pain ED Provider: Jaydon Armstrong Dx/Rx/DC Orders Clinical Impression: Chest pain Instructions: ED Chest Pain, Uncertain Cause Prescriptions: No Action atorvastatin 80 MG tablet 80 mg PO QHS RF: 0 aspirin 81 MG tablet 81 mg PO DAILY@0800 RF: 0 finasteride 5 MG tablet 5 mg PO DAILY RF: 0 escitalopram oxalate 10 MG tablet 10 mg PO DAILY RF: 0 cholecalciferol (vitamin D3) [Vitamin D3] 1,000 UNIT tablet 3,000 units PO DAILY RF: 0 Humulin R U-500 (Conc) Kwikpen 500 UNIT/ML insulin pen 120 unit SQ BREAKFAST RF: 0 Humulin R U-500 (Conc) Kwikpen 500 UNIT/ML insulin pen 120 unit SQ DINNER RF: 0 nitroglycerin 0.4 MG tablet, sublingual 0.4 mg sublingual Q5M PRN (Reason: Chest Pain) Qty: 30 RF: 0 albuterol sulfate 1 INHALER inhaler 1 - 2 puff INHALATION 4X/DAY PRN PRN (Reason: Sob &/Or Wheezing) RF: 0 pantoprazole 40 MG tablet 40 mg PO BID RF: 0 carvedilol 25 MG tablet 25 mg PO BID RF: 0 multivitamin Tablet 1 tab PO DAILY RF: 0 furosemide 40 mg Tablet 40 mg PO DAILY RF: 0 potassium chloride [Klor-Con M20] 20 mEq Tablet,Er Particles/Crystals 20 meq PO DAILY RF: 0 ranolazine 500 mg Tablet Extended Release 12 Hr 500 mg PO BID RF: 0 acetaminophen [Tylenol] 325 MG tablet 325 mg PO Q6H PRN PRN (Reason: Mild pain 1-3/Temp > 100.7 F) RF: 0 ferrous sulfate 325 mg (65 mg iron) tablet 325 mg PO BID Qty: 60 RF: 0 guaifenesin 100 mg/5 mL Liquid 100 - 200 mg PO TID PRN (Reason: Cough) RF: 0 tamsulosin 0.4 MG capsule 0.8 mg PO QHS RF: 0 Brilinta 60 mg tablet 60 mg PO BID Qty: 60 RF: 0 [facility] Referrals[facility] [Primary Care Provider] - 3-5 Days Disposition Disposition: Home, Self Care
[2021-01-05 19:30] VITALS: O2SAT 98
[2021-01-05 19:36] LABS: Absolute Lymphocyte Count 0.98 X10^3/uL (0.83-4.51); Basophil# 0.02 X10^3/uL; Basophil% 0.4 % (0-1); Eosinophil# 0.13 X10^3/uL; Eosinophils% 2.4 % (0-5); Hematocrit 38.3 % (40-54); Hemoglobin 12.5 g/dL (13.0-16.5); Lymphocyte # 0.98 X10^3/ul (0.83-4.51); Lymphocyte % 17.8 % (19-41); Mean Corp Hgb Conc 32.6 g/dL (32-36); Mean Corpuscular Hgb 32.2 pg (27.0-32.0); Mean Corpuscular Volume 98.7 fL (80-94); Mean Platelet Vol. 10.5 fl (6.2-12.0); Monocyte# 0.38 X10^3/uL; Monocyte% 6.9 % (0-10); NRBC Flagged by Analyzer 0 % (0-5); Neutrophil # 3.98 X10^3/uL (2.7-7.7); Neutrophil % 72.1 % (47-70); Platelet Count 156 K/mm3 (150-450); RBC Distribution Width CV 13.3 % (11.6-14.6); RBC Distribution Width SD 48.6 fl (35.1-43.9); Red Blood Count 3.88 M/mm3 (4.6-6.2); White Blood Count 5.5 K/mm3 (4.4-11.0)
[2021-01-05] MEDS: Aspirin 81 MG TAB.CHEW 324 MG PO (19:38)
[2021-01-05] MEDS: 0.9% Normal Saline 1,000 ML 150 ML IV (19:39)
[2021-01-05] MEDS: Ondansetron 4 MG/2 ML Vial IV (19:39)
[2021-01-05] MEDS: Morphine 4 MG/ML Syringe IV (19:40)
[2021-01-05 19:44] VITALS: BP 130/68
[2021-01-05 19:49] LABS: Anion Gap 5 (5-15); BUN 24 mg/dL (7-18); BUN/Creat Ratio 22.2 RATIO (10-20); Calcium,Total 8.5 mg/dL (8.5-10.1); Chloride 104 mmol/L (98-107); Creatinine, Serum 1.08 mg/dL (0.70-1.30); EST Glomerular Filtration Rate 72 mL/min (>60); Est Glom Filt Rate - Afr Amer 87 mL/min (>60); Estimated Creatinine Clearance 65.72 ml/min; Glucose 195 mg/dL (74-106); Potassium 4.1 mmol/L (3.5-5.1); Sodium Level 141 mmol/L (136-145); Troponin-I HS 15 pg/mL (3.0-78.0)
--- NOTE | 2021-01-05 19:50 | RAD_ITS ---
STUDY: X-RAY CHEST REASON FOR EXAM: Male, 70 years old. chest pain TECHNIQUE: AP COMPARISON: None. FINDINGS: Two lead cardiac conduction device is seen via the left subclavian vein with lead tips projecting over the right atrium and right ventricle, respectively. Sternal wires and mediastinal surgical clips compatible with prior CABG. The lungs are clear and expanded. There is no demonstrated pleural abnormality. Normal size heart. Normal mediastinum and cata. Normal visualized pulmonary arteries. Normal visualized aortic arch and descending thoracic aorta. There is demineralization of the osseous structures. Multiple left rib plating. There is no demonstrated abnormality of the visualized soft tissue structures of the upper abdomen. RAD/Chest 1 View (Portable) IMPRESSION: No acute cardiopulmonary process. Electronically Signed: Karlos Cabrera MD ([place]) at 20:25 EST , Service support ,
--- NOTE | 2021-01-05 19:51 | ED.RN ---
aware of d-dimer 0.50
[2021-01-05 20:41] VITALS: PULSE 60; RESP 19; O2SAT 97
== END 2021-01-05 20:49 | disposition home or self-care (01) ==
PROVIDERS: Emergency Provider Emergency Medicine
DX: R07.9 Chest pain, unspecified (principal); D64.9 Anemia, unspecified; E11.9 Type 2 diabetes mellitus without complications; E78.5 Hyperlipidemia, unspecified; G47.33 Obstructive sleep apnea (adult) (pediatric); I25.2 Old myocardial infarction; I50.9 Heart failure, unspecified; I11.0 Hypertensive heart disease with heart failure; J96.10 Chronic respiratory failure, unspecified whether with hypoxia or hypercapnia; Z79.4 Long term (current) use of insulin; Z79.82 Long term (current) use of aspirin; Z87.891 Personal history of nicotine dependence; Z95.1 Presence of aortocoronary bypass graft; Z95.0 Presence of cardiac pacemaker; Z95.5 Presence of coronary angioplasty implant and graft
CPT/HCPCS: 71045; 80048; 84484; 85025; 85379; 93005; 99285; J7030; A4216; J2405

== ENCOUNTER 2021-01-14 09:12 | Day surgery (SDC) | payer OTHER, SELFPAY ==
--- NOTE | 2021-01-07 14:33 | RAD_ITS ---
STUDY: X-RAY CHEST REASON FOR EXAM: Male, 70 years old. For Pacemaker generator change TECHNIQUE: PA and lateral views of the chest. COMPARISON: 01/05/2021 FINDINGS: Two lead cardiac conduction device is seen via the left subclavian vein with lead tips projecting over the right atrium and right ventricle, respectively. Sternal wires and mediastinal surgical clips compatible with prior CABG. Coarsened interstitial lung markings without airspace consolidation. There is pleural fibrotic scarring of the left costophrenic angle. Stable size heart. Normal mediastinum and cata. Normal visualized pulmonary arteries. Normal visualized aortic arch and descending thoracic aorta. There is demineralization of the osseous structures. Multilevel left rib plating. There is no demonstrated abnormality of the visualized soft tissue structures of the upper abdomen. RAD/Chest PA and Lateral IMPRESSION: 1. No airspace consolidation or pleural effusion. Electronically Signed: Karlos Cabrera MD ([place]) at 6:50 EST , Service support ,
[2021-01-07 15:02] LABS: Bacteria 0 SEEN /hpf (None Seen); Mucous, Urine 0 SEEN /hpf (<or=2+); Red Blood Cells-Urine 0 SEEN /hpf (0-5); Squamous Epithelial Cells - UA 0 SEEN /hpf (0-5); White Blood Cells 0 SEEN /hpf (0-5)
[2021-01-07 15:42] LABS: Hematocrit 37.4 % (40-54); Hemoglobin 12.6 g/dL (13.0-16.5); Mean Corp Hgb Conc 33.7 g/dL (32-36); Mean Corpuscular Hgb 32.8 pg (27.0-32.0); Mean Corpuscular Volume 97.4 fL (80-94); Mean Platelet Vol. 10.5 fl (6.2-12.0); Platelet Count 159 K/mm3 (150-450); RBC Distribution Width CV 13.4 % (11.6-14.6); RBC Distribution Width SD 47.8 fl (35.1-43.9); Red Blood Count 3.84 M/mm3 (4.6-6.2)
[2021-01-07 15:44] LABS: Color, Urine Yellow (Yellow); Glucose, Dipstick Normal (Normal); Ketone-Dipstick Negative (Negative); Leukocyte Esterase-Dipstick Negative /ul (Negative); Nitrite-Dipstick Negative (Negative); Occult Blood-Urine Negative /ul (Negative); Protein-Dipstick Negative (Negative); Urine Bilirubin Dipstick Negative (Negative); Urine Clarity Clear (Clear); Urine Urobilinogen Normal (Normal)
[2021-01-07 15:55] LABS: International Normalized Ratio 1.1; Prothrombin Time (Protime)PT. 13.9 SECONDS (11.7-14.9)
[2021-01-07 16:04] LABS: Anion Gap 4 (5-15); BUN 20 mg/dL (7-18); BUN/Creat Ratio 21.4 RATIO (10-20); Calcium,Total 8.7 mg/dL (8.5-10.1); Chloride 100 mmol/L (98-107); Creatinine, Serum 0.94 mg/dL (0.70-1.30); EST Glomerular Filtration Rate 85 mL/min (>60); Est Glom Filt Rate - Afr Amer 102 mL/min (>60); Glucose 84 mg/dL (74-106); Potassium 3.9 mmol/L (3.5-5.1); Sodium Level 138 mmol/L (136-145)
[2021-01-11 07:54] VITALS: BMI 35.3
--- NOTE | 2021-01-14 14:15 | CL.IE_ITS ---
Patient: IGOVANNY LEONARDO Study Date: 01/14/2021 Performing: Thien Cullen MD : [id number] Age: 70 Gender: male PROCEDURES PERFORMED [id number] REMOVAL+REPLACEMENT PACER-DUAL LEAD INDICATIONS End-of-life replacement indicator Atrioventricular (AV) block PROCEDURE DETAILS The patient was brought to the Catheterization Lab in the postabsorptive nonsedated state. Infor med consent was obtained prior to the procedure. Local anesthetic was given subcutaneously to the le ft upper chest area with Lidocaine 2%. Incision was made to the left upper chest. PPM generator was r emoved. PPM generator was attached to the lead(s) and inserted into the pocket. Device pocket was irr igated with antibiotic-ancef. Subcutaneous closure was completed with 3-0 Vicryl. Skin closure was co mpleted with 4-0 Vicryl. Steri-strips applied to Lt chest area. Instrument, sponge, and needle counts were noted to be normal. The patient tolerated the procedure well. Estimated Blood Loss: < 10 mls IMPLANTED / EX-PLANTED DEVICES IMPLANTED DEVICE(S): PPM Generator - [employer]: [email or web address], Model # [id number] , Serial # [id number] DEVICE PARAMETERS DEVICE PARAMETERS: Mode- DDDR Lower rate- 60 Upper rate- 130 CONCLUSIONS / RECOMMENDATIONS Device Conclusions: Successful implantation of a dual chamber pacemaker battery change and replacemen t Device Recommendations: Follow up with Primary Care Physician PROCEDURE MEDICATIONS Versed 1 mg IV Oxygen: 3 L/min via nasal cannula Antibiotic given in appropriate timeframe. Ancef 2 Gm IV @ 01/14/2021 13:25:51 Signed By Thien Cullen MD On 01/14/2021 14:36:52 Thien Cullen MD
== END 2021-01-14 15:13 | disposition home or self-care (01) ==
LOC: CLSP 09:13
PROVIDERS: Referring Provider Internal Medicine Cardiovascular Disease; Visit Provider Internal Medicine Cardiovascular Disease
DX: Z45.010 Encounter for checking and testing of cardiac pacemaker pulse generator [battery] (principal); I25.119 Atherosclerotic heart disease of native coronary artery with unspecified angina pectoris; Z95.1 Presence of aortocoronary bypass graft; Z95.5 Presence of coronary angioplasty implant and graft; I10 Essential (primary) hypertension; E78.5 Hyperlipidemia, unspecified; G47.33 Obstructive sleep apnea (adult) (pediatric); Z86.73 Personal history of transient ischemic attack (TIA), and cerebral infarction without residual deficits; E11.9 Type 2 diabetes mellitus without complications; Z79.4 Long term (current) use of insulin; J96.10 Chronic respiratory failure, unspecified whether with hypoxia or hypercapnia; I25.2 Old myocardial infarction; Z87.891 Personal history of nicotine dependence
CPT/HCPCS: 33228; 36415; 71046; 80048; 81001; 85027; 85610; 99152; 99153; J7040; J7050

== ENCOUNTER 2021-01-25 15:44 | Emergency (ER) | payer OTHER, SELFPAY ==
[2021-01-25 15:46] VITALS: BP 171/87; PULSE 62; RESP 18; TEMP 36.6; O2SAT 97; BMI 35.8
--- NOTE | 2021-01-25 16:07 | CT_ITS ---
STUDY: CT BRAIN WITHOUT CONTRAST REASON FOR EXAM: Male, 70 years old. Weakness. RADIATION DOSAGE (If Supplied By Facility): CTDIvol = ( 44.99 ) mGy, DLP = ( 829.85 ) mGycm TECHNIQUE: Transaxial CT imaging of the brain was performed without administration of intravenous contrast material. Individualized dose optimization techniques were used for this CT. COMPARISON: 08/23/2020. FINDINGS: Normal soft tissue structures. Normal calvarium. There is mild cerebral atrophy with widening of the extra-axial spaces and ventricular dilatation. There are areas of decreased attenuation within the white matter tracts of the supratentorial brain, consistent with microvascular disease changes. Normal basal ganglia and thalami. Normal brainstem. Normal cerebellum. There is no intracranial hemorrhage. There are no findings of an acute ischemic infarction. Normal visualized paranasal sinuses. CT/Brain/Head without Contrast IMPRESSION: Chronic involutional changes without evidence of acute intracranial or calvarial abnormality. There is no major interval change. Electronically Signed: Henrry Baron DO at 16:57 EST Tel [phone], Service support ,
--- NOTE | 2021-01-25 16:09 | EKG12_ITS ---
Test Reason : Blood Pressure : / mmHG Vent. Rate : 060 BPM Atrial Rate : 060 BPM P-R Int : 376 ms QRS Dur : 190 ms QT Int : 510 ms P-R-T Axes : 063 -59 106 degrees QTc Int : 510 ms Atrial-sensed ventricular-paced rhythm with prolonged AV conduction with frequent AV dual-paced compl exes Abnormal ECG Confirmed by PADILLA GUALLPA, CALI ([id number]), brands editor NADINE FERRER ([id number]) on 01/28/2021 10:16:35 AM Referred By: ANGIE Confirmed By:CALI CAUSEY MD
[2021-01-25 16:21] LABS: Absolute Lymphocyte Count 1.01 X10^3/uL (0.83-4.51); Absolute Neutrophil Count 3.5 X10^3/uL (2.0-7.7); Basophil# 0.02 X10^3/uL; Basophil% 0.4 % (0-1); Eosinophil# 0.14 X10^3/uL; Eosinophils% 2.8 % (0-5); Hematocrit 34.5 % (40-54); Hemoglobin 11.7 g/dL (13.0-16.5); Lymphocyte # 1.01 X10^3/ul (0.83-4.51); Mean Corp Hgb Conc 33.9 g/dL (32-36); Mean Corpuscular Hgb 33.1 pg (27.0-32.0); Mean Corpuscular Volume 97.7 fL (80-94); Mean Platelet Vol. 10.7 fl (6.2-12.0); Monocyte% 7.9 % (0-10); NRBC Flagged by Analyzer 0 % (0-5); Neutrophil # 3.46 X10^3/uL (2.7-7.7); Neutrophil % 68.7 % (47-70); Platelet Count 137 K/mm3 (150-450); RBC Distribution Width CV 13.7 % (11.6-14.6); Red Blood Count 3.53 M/mm3 (4.6-6.2)
--- NOTE | 2021-01-25 16:42 | RAD_ITS ---
STUDY: X-RAY CHEST REASON FOR EXAM: Male, 70 years old. Chest pain. Found unresponsive today. TECHNIQUE: Single AP portable view of the chest. COMPARISON: 01/07/2021. FINDINGS: Decreased inspiratory effort. Continued density in the left lung which appears unchanged from prior study. There is no demonstrated pleural abnormality. Sternal cerclage wires are present from a prior sternotomy. The heart appears mildly enlarged when compared to prior study. Stable cardiac pacemaker. Normal mediastinum and cata. Normal visualized pulmonary arteries. Normal visualized aortic arch and descending thoracic aorta. The thoracic spine is obscured by the mediastinum. Again seen is multiple left-sided rib pairs. Normal visualized ribs, clavicles, and shoulders. There is no demonstrated abnormality of the visualized soft tissue structures of the upper abdomen. RAD/Chest 1 View (Portable) IMPRESSION: Decreased inspiratory effort without other major interval change. Electronically Signed: Henrry Baron DO at 16:58 EST Tel [phone], Service support ,
[2021-01-25 16:58] LABS: ALB/GLOB Ratio 0.9 RATIO (0.9-2.4); AST(SGOT) 17 U/L (15-37); Alanine Aminotransfer ALT/SGPT 24 U/L (16-61); Albumin, Serum 3.3 g/dL (3.2-5.0); Alkaline Phosphatase 81 U/L (45-117); Anion Gap 5 (5-15); BUN 17 mg/dL (7-18); BUN/Creat Ratio 20.7 RATIO (10-20); Calcium,Total 8.5 mg/dL (8.5-10.1); Chloride 108 mmol/L (98-107); Creatinine, Serum 0.82 mg/dL (0.70-1.30); EST Glomerular Filtration Rate 98 mL/min (>60); Est Glom Filt Rate - Afr Amer 119 mL/min (>60); Estimated Creatinine Clearance 86.55 ml/min; Globulin 3.6 g/dL (2.2-4.2); Glucose 156 mg/dL (74-106); Potassium 3.7 mmol/L (3.5-5.1); Protein, Total 6.9 g/dL (6.4-8.2); Sodium Level 145 mmol/L (136-145); Troponin-I HS 16 pg/mL (3.0-78.0)
[2021-01-25 17:04] LABS: Mucous, Urine 0 SEEN /hpf (<or=2+); Red Blood Cells-Urine 0 SEEN /hpf (0-5)
[2021-01-25 17:20] LABS: Color, Urine Yellow (Yellow); Glucose, Dipstick Normal (Normal); Ketone-Dipstick 5 mg/dl (Negative); Leukocyte Esterase-Dipstick Negative /ul (Negative); Nitrite-Dipstick Negative (Negative); Occult Blood-Urine Negative /ul (Negative); Protein-Dipstick 30 mg/dl (Negative); Specific Gravity, Urine 1.015 (1.002-1.030); Urine Bilirubin Dipstick Negative (Negative); Urine Clarity Clear (Clear); Urine Urobilinogen 1 mg/dl (Normal)
--- NOTE | 2021-01-25 17:29 | EDS_ITS ---
HPI History of Present Illness Chief Complaint: Alt LOC Informant: spouse/S.O. Onset/Context/Timing Onset: Today Context: Sudden Onset Timing: Continuous Quality: Weakness Location: Generalized Worsened by: Nothing Relieved by: Nothing Narrative Narrative: Patient presents with altered mental status and unresponsive episode that began today. states the patient's last known well was approximately 10 AM today. states that she checked on him later and noticed he was having difficulty talking. states that he has had similar episodes in the past when they have been doing errands around town and he has not taken his medications. states he is having trouble talking. Patient has a history of stroke with some left-sided weakness but this is not changed. [facility] Medical History Abnormal EKG Anemia Atherosclerotic heart disease [place] coronary artery w/angina pectoris BiPAP (biphasic positive airway pressure) dependence Chest pain Chronic respiratory failure Congestive heart failure (CHF) Diabetes Essential (primary) hypertension Former smoker History of fractured rib Hyperlipidemia Myocardial infarct Obesity On home oxygen therapy EKATERINA (obstructive sleep apnea) Pacemaker Pacemaker battery depletion Pulmonary embolism Sick sinus syndrome Stroke/cerebrovascular accident Wears hearing aid in both ears Home Medications Humulin R U-500 (Conc) Kwikpen 120 unit SQ BREAKFAST 06/11/18 [History Last Taken 08/09/20] Humulin R U-500 (Conc) Kwikpen 120 unit SQ DINNER 06/11/18 [History Last Taken 08/09/20] aspirin 81 mg PO DAILY@0800 06/11/18 [History Last Taken 08/09/20] atorvastatin 80 mg PO QHS 06/11/18 [History Last Taken 08/09/20] cholecalciferol (vitamin D3) [Vitamin D3] 3,000 units PO DAILY 06/11/18 [History Last Taken 08/09/20] escitalopram oxalate 10 mg PO DAILY 06/11/18 [History Last Taken 08/09/20] finasteride 5 mg PO DAILY 06/11/18 [History Last Taken 08/09/20] nitroglycerin 0.4 mg SUBLINGUAL Q5M PRN #30 tablet 07/22/18 [Rx Last Taken 01/17/20] albuterol sulfate 1 - 2 puff INHALATION 4X/DAY PRN PRN 04/08/20 [History Last Taken 07/05/20] pantoprazole 40 mg PO BID 05/18/20 [History Last Taken 08/09/20] acetaminophen [Tylenol] 325 mg PO Q6H PRN PRN 06/22/20 [History Last Taken 07/05/20] carvedilol 25 mg PO BID 06/22/20 [History Last Taken 08/09/20] furosemide 40 mg PO DAILY 06/22/20 [History Last Taken 08/09/20] multivitamin 1 tab PO DAILY 06/22/20 [History Last Taken 08/09/20] potassium chloride [Klor-Con M20] 20 meq PO DAILY 06/22/20 [History Last Taken 08/09/20] ranolazine 500 mg PO BID 06/22/20 [History Last Taken 08/09/20] ferrous sulfate 325 mg PO BID #60 tab 06/23/20 [Rx Last Taken 08/09/20] guaifenesin 100 - 200 mg PO TID PRN 07/05/20 [History Last Taken 1 Week Ago ~08/03/20] tamsulosin 0.8 mg PO QHS 08/10/20 [History Last Taken 08/09/20] clopidogrel 75 mg tablet 75 mg PO DAILY 01/07/21 [History Last Taken Unknown] Allergy/AdvReac Type Severity Reaction Status Date / Time ezetimibe Allergy Unknown Verified 01/25/21 15:51 Fish Containing Products Allergy Unknown Verified 01/25/21 15:51 glyburide Allergy Unknown Verified 01/25/21 15:51 isosorbide Allergy PT UNSURE Verified 01/25/21 15:51 OF REACTION lisinopril Allergy Unknown Verified 01/25/21 15:51 metformin Allergy Nausea Verified 01/25/21 15:51 metoprolol Allergy Unknown Verified 01/25/21 15:51 simvastatin Allergy Unknown Verified 01/25/21 15:51 Family History Father No problems noted. Surgical History H/O coronary artery bypass surgery History of cholecystectomy History of coronary artery stent placement History of knee replacement procedure of left knee History of permanent cardiac pacemaker placement (01/14/21) Social History household members: spouse Smoking Status: Former smoker substance use type: does not use ROS ROS ED Constitutional Constitutional ED: Denies chills or fever(s) Eyes Eyes: Denies blurry vision or change in vision ENT ENT ED: Denies rhinorrhea or sore throat Cardiovascular Cardiovascular: Reports chest pain; Denies palpitations Respiratory/Chest Respiratory/Chest: Reports cough; Denies dyspnea Gastrointestinal Gastrointestinal: Denies nausea or vomiting Genitourinary Genitourinary ED: Denies dysuria or hematuria Musculoskeletal Musculoskeletal: Denies back pain or neck pain Integumentary Denies abscess or rash Neurologic Neurologic: Denies headache(s) or weakness Allergic/Immunologic Allergic/Immunologic ED: Denies mouth swelling or urticaria EXAM Physical Exam Const Vital Signs: 01/25/21 15:46 01/25/21 15:57 01/25/21 17:39 Temperature 97.9 F Temperature Source Oral Pulse Rate 62 69 Respiratory Rate 18 21 H Respiratory Effort Normal Respiratory Pattern Normal Blood Pressure 171/87 H 199/85 H Blood Pressure Mean 115 123 Pulse Ox 97 97 Oxygen Delivery Method Room Air Nasal Cannula Oxygen Flow Rate (L/min) 3 Positive well nourished, well developed, obese and unkempt General Appearance ED: unkempt and well developed Nutritional Appearance: obese HEENT Reports moist mucous membranes Neck supple and no JVD Resp normal respiratory effort and clear to auscultation bilaterally Cardio regular rate and regular rhythm GI normal to inspection, nondistended, normoactive bowel sounds and non-tender Palpation: soft Extremity normal to inspection General Extremety ED: Negative for edema or tenderness General Extremity: Negative for edema Neuro CN's II-XII intact bilaterally and no sensory deficits noted Neuro Narrative: Strength is 4/5 in the left upper and lower extremities. This is unchanged for the patient. Sensorium / Orientation: alert Psych Appearance: unkempt Skin no rashes or lesions noted MDM MDM MDM Narrative Medical decision making narrative: EKG was obtained. On my interpretation, it shows paced rhythm with a rate of 60. There is a left bundle branch block pattern. There are no acute ST or T wave changes. CBC shows a slight anemia with a hemoglobin of 11.7 and hematocrit 34.5. Platelets were 137. Comprehensive metabolic profile was essentially within normal limits. Urinalysis does not show any evidence of urinary tract infection. CT scan of the brain was obtained. There is no acute intracranial abnormality. This was interpreted by the radiologist and reviewed by myself. Portable 1 view chest x- ray was obtained. On my interpretation, there is poor inspiratory effort but the lung flores are clear. There is normal cardiac silhouette. Bony thorax is normal. There is no acute process noted. Radiologist also interpreted the x- ray and agrees. On reevaluation, patient was talking better. Patient still complaining of some pain in his chest. Patient was given a dose of ibuprofen here. Patient was instructed to follow-up with his primary care physician in 5 to 7 days. Patient and spouse understood and were agreeable with the plan. All questions were answered. Lab Data Attestation: I reviewed the patient's lab results. Labs: Laboratory Results - last 24 hr 01/25/21 01/25/21 01/25/21 15:50 15:50 16:55 WBC 5.0 RBC 3.53 L Hgb 11.7 L Hct 34.5 L MCV 97.7 H MCH 33.1 H MCHC 33.9 RDW Std Deviation 49.0 H RDW Coeff of Cinda 13.7 Plt Count 137 L MPV 10.7 Immature Gran % (Auto) 0.200 Neut % (Auto) 68.7 Lymph % (Auto) 20.0 Dane % (Auto) 7.9 Eos % (Auto) 2.8 Baso % (Auto) 0.4 Absolute Neuts (auto) 3.5 Absolute Lymphs (auto) 1.01 Nucleated RBC % 0 Sodium 145 Potassium 3.7 Chloride 108 H Carbon Dioxide 32.0 Anion Gap 5 BUN 17 Creatinine 0.82 Estim Creat Clear Calc 86.55 Est GFR (MDRD) Af Amer 119 Est GFR (MDRD) Non-Af 98 BUN/Creatinine Ratio 20.7 H Glucose 156 H Calcium 8.5 Total Bilirubin 0.50 AST 17 ALT 24 Alkaline Phosphatase 81 Troponin I High Sens 16 Total Protein 6.9 Albumin 3.3 Globulin 3.6 Albumin/Globulin Ratio 0.9 Urine Color Yellow Urine Clarity Clear Urine pH 7.0 Ur Specific [place] 1.015 Urine Protein 30 H Urine Glucose (UA) Normal Urine Ketones 5 H Urine Occult Blood Negative Urine Nitrite Negative Urine Bilirubin Negative Urine Urobilinogen 1 H Ur Leukocyte Esterase Negative Urine RBC 0 SEEN Urine WBC 0-5 SEEN Ur Squamous Epith Cells 0-5 SEEN Urine Bacteria RARE Urine Mucus 0 SEEN Radiography Diagnostic Testing: Clinical Impression(s) from Imaging Studies Brain CT 01/25/21 16:07 IMPRESSION: Chronic involutional changes without evidence of acute intracranial or calvarial abnormality. There is no major interval change. Electronically Signed: Henrry Baron DO at 16:57 EST Tel [phone], Service support , Chest X-Ray 01/25/21 16:42 IMPRESSION: Decreased inspiratory effort without other major interval change. Electronically Signed: Henrry Baron DO at 16:58 EST Tel [phone], Service support , EKG Initial EKG: Attestation: I personally reviewed and interpreted this EKG as follows: Interpretation: Paced and LBBB Prior EKG tracings: available for review Prior: Unchanged (01/05/2021) Discharge Plan Triage Chief Complaint: Alt LOC ED Provider: Cirilo Reyes Dx/Rx/DC Orders Clinical Impression: Mental status change resolved Instructions: ED Confusion Prescriptions: No Action clopidogrel [Plavix] 75 mg tablet 75 mg PO DAILY RF: 0 atorvastatin 80 MG tablet 80 mg PO QHS RF: 0 aspirin 81 MG tablet 81 mg PO DAILY@0800 RF: 0 finasteride 5 MG tablet 5 mg PO DAILY RF: 0 escitalopram oxalate 10 MG tablet 10 mg PO DAILY RF: 0 cholecalciferol (vitamin D3) [Vitamin D3] 1,000 UNIT tablet 3,000 units PO DAILY RF: 0 Humulin R U-500 (Conc) Kwikpen 500 UNIT/ML insulin pen 120 unit SQ BREAKFAST RF: 0 Humulin R U-500 (Conc) Kwikpen 500 UNIT/ML insulin pen 120 unit SQ DINNER RF: 0 nitroglycerin 0.4 MG tablet, sublingual 0.4 mg sublingual Q5M PRN (Reason: Chest Pain) Qty: 30 RF: 0 albuterol sulfate 1 INHALER inhaler 1 - 2 puff INHALATION 4X/DAY PRN PRN (Reason: Sob &/Or Wheezing) RF: 0 pantoprazole 40 MG tablet 40 mg PO BID RF: 0 carvedilol 25 MG tablet 25 mg PO BID RF: 0 multivitamin Tablet 1 tab PO DAILY RF: 0 furosemide 40 mg Tablet 40 mg PO DAILY RF: 0 potassium chloride [Klor-Con M20] 20 mEq Tablet,Er Particles/Crystals 20 meq PO DAILY RF: 0 ranolazine 500 mg Tablet Extended Release 12 Hr 500 mg PO BID RF: 0 acetaminophen [Tylenol] 325 MG tablet 325 mg PO Q6H PRN PRN (Reason: Mild pain 1-3/Temp > 100.7 F) RF: 0 ferrous sulfate 325 mg (65 mg iron) tablet 325 mg PO BID Qty: 60 RF: 0 guaifenesin 100 mg/5 mL Liquid 100 - 200 mg PO TID PRN (Reason: Cough) RF: 0 tamsulosin 0.4 MG capsule 0.8 mg PO QHS RF: 0 [facility] [Primary [facility] Provider] - 3-5 Days Disposition Disposition: Home, Self Care
[2021-01-25 17:32] LABS: Bacteria RARE /hpf (None Seen); Squamous Epithelial Cells - UA 0-5 SEEN /hpf (0-5); White Blood Cells 0-5 SEEN /hpf (0-5)
[2021-01-25 17:39] VITALS: BP 199/85; PULSE 69; RESP 21; O2SAT 97
[2021-01-25] MEDS: Acetaminophen 325 MG Tablet 650 MG PO (18:28)
[2021-01-25 19:14] VITALS: BP 166/80; PULSE 60; RESP 20; O2SAT 98
== END 2021-01-25 19:20 | disposition home or self-care (01) ==
PROVIDERS: Emergency Provider Emergency Medicine
DX: R41.82 Altered mental status, unspecified (principal); I44.7 Left bundle-branch block, unspecified; E66.9 Obesity, unspecified; D64.9 Anemia, unspecified; E11.9 Type 2 diabetes mellitus without complications; E78.5 Hyperlipidemia, unspecified; G47.33 Obstructive sleep apnea (adult) (pediatric); I25.2 Old myocardial infarction; I25.10 Atherosclerotic heart disease of native coronary artery without angina pectoris; I11.0 Hypertensive heart disease with heart failure; I50.9 Heart failure, unspecified; J96.10 Chronic respiratory failure, unspecified whether with hypoxia or hypercapnia; Z79.4 Long term (current) use of insulin; Z87.891 Personal history of nicotine dependence; Z95.0 Presence of cardiac pacemaker
CPT/HCPCS: 70450; 71045; 80053; 81001; 84484; 85025; 87426; 93005; 99285; A4216

== ENCOUNTER 2021-02-24 14:40 | Emergency (ER) | payer OTHER, SELFPAY ==
[2021-02-24] VITALS (7 sets, daily range): BP systolic 146–150; BP diastolic 76–79; PULSE 60–61; RESP 16–22; TEMP 35.8–36.5; O2SAT 96–100; BMI 34.1
--- NOTE | 2021-02-24 15:10 | EKG12_ITS ---
Test Reason : SOB Blood Pressure : / mmHG Vent. Rate : 061 BPM Atrial Rate : 065 BPM P-R Int : 306 ms QRS Dur : 190 ms QT Int : 512 ms P-R-T Axes : 000 -60 104 degrees QTc Int : 515 ms AV dual-paced rhythm with prolonged AV conduction with frequent ventricular paced complexes Abnormal ECG Confirmed by YUNI GUALLPA, JOANNA ([id number]), copy editor KENDALL ROCHE ([id number]) on 02/26/2021 1:25:37 PM Referred By: JAVIER Confirmed By:JOANNA MORRISSEY MD
--- NOTE | 2021-02-24 15:11 | EX.ED.DYSGE1 ---
HPI History of Present Illness Chief Complaint: Shortness of Breath Informant: patient and spouse/S.O. Narrative Narrative: Patient is seem to be rather poor [id number] male presents to the emerg answering I do not know when it is hard to explain to most questions. From what I can gather he was recentlyency department stating that he does not feel well. admitted overnight at [place] where states that he was given a diagnosis of pneumonia but was not given any antibiotics. and that it is hard to explain. He states that he just does not feel well but he has pain but when asked where he has pain he states here and there States he is bringing up yellow phlegm which is different than normal. He has a history of coronary artery disease diabetes COPD and prior stroke. No reported fevers has been taking Tylenol. He states he is afraid to move when asked why he is not sure. He chronically wears 3 L of home oxygen. [facility] Medical History Abnormal EKG Anemia Atherosclerotic heart disease [place] coronary artery w/angina pectoris BiPAP (biphasic positive airway pressure) dependence Chest pain Chronic respiratory failure Congestive heart failure (CHF) Diabetes Essential (primary) hypertension Former smoker History of fractured rib Hyperlipidemia Myocardial infarct Obesity On home oxygen therapy EKATERINA (obstructive sleep apnea) Pacemaker Pacemaker battery depletion Pulmonary embolism Sick sinus syndrome Stroke/cerebrovascular accident Wears hearing aid in both ears Home Medications Humulin R U-500 (Conc) Kwikpen 100 unit SQ BREAKFAST 06/11/18 [History Last Taken 08/09/20] Humulin R U-500 (Conc) Kwikpen 100 unit SQ DINNER 06/11/18 [History Last Taken 08/09/20] aspirin 81 mg PO DAILY@0800 06/11/18 [History Last Taken 08/09/20] atorvastatin 80 mg PO QHS 06/11/18 [History Last Taken 08/09/20] cholecalciferol (vitamin D3) [Vitamin D3] 3,000 units PO DAILY 06/11/18 [History Last Taken 08/09/20] escitalopram oxalate 10 mg PO DAILY 06/11/18 [History Last Taken 08/09/20] finasteride 5 mg PO DAILY 06/11/18 [History Last Taken 08/09/20] nitroglycerin 0.4 mg SUBLINGUAL Q5M PRN #30 tablet 07/22/18 [Rx Last Taken 01/17/20] albuterol sulfate 1 - 2 puff INHALATION 4X/DAY PRN PRN 04/08/20 [History Last Taken 07/05/20] pantoprazole 40 mg PO BID 05/18/20 [History Last Taken 08/09/20] acetaminophen [Tylenol] 325 mg PO Q6H PRN PRN 06/22/20 [History Last Taken 07/05/20] carvedilol 25 mg PO BID 06/22/20 [History Last Taken 08/09/20] furosemide 40 mg PO DAILY 06/22/20 [History Last Taken 08/09/20] multivitamin 1 tab PO DAILY 06/22/20 [History Last Taken 08/09/20] potassium chloride [Klor-Con M20] 20 meq PO DAILY 06/22/20 [History Last Taken 08/09/20] ranolazine 500 mg PO BID 06/22/20 [History Last Taken 08/09/20] ferrous sulfate 325 mg PO BID #60 tab 06/23/20 [Rx Last Taken 08/09/20] guaifenesin 100 - 200 mg PO TID PRN 07/05/20 [History Last Taken 1 Week Ago ~08/03/20] tamsulosin 0.8 mg PO QHS 08/10/20 [History Last Taken 08/09/20] clopidogrel 75 mg tablet 75 mg PO DAILY 01/07/21 [History Last Taken Unknown] semaglutide (weight loss) 0.5 mg SUBCUT QWEEK 02/24/21 [History Last Taken Unknown] Allergy/AdvReac Type Severity Reaction Status Date / Time ezetimibe Allergy Unknown Verified 02/24/21 14:45 Fish Containing Products Allergy Unknown Verified 02/24/21 14:45 glyburide Allergy Unknown Verified 02/24/21 14:45 isosorbide Allergy PT UNSURE Verified 02/24/21 14:45 OF REACTION lisinopril Allergy Unknown Verified 02/24/21 14:45 metformin Allergy Nausea Verified 02/24/21 14:45 metoprolol Allergy Unknown Verified 02/24/21 14:45 simvastatin Allergy Unknown Verified 02/24/21 14:45 Family History Father No problems noted. Surgical History H/O coronary artery bypass surgery History of cholecystectomy History of coronary artery stent placement History of knee replacement procedure of left knee History of permanent cardiac pacemaker placement (01/14/21) Social History household members: spouse Smoking Status: Former smoker substance use type: does not use ROS ROS ED Constitutional Constitutional ED: Denies chills, fever(s) or weight loss Eyes Eyes: Denies change in vision or diplopia ENT ENT ED: Denies ear pain, rhinorrhea or sore throat Cardiovascular Cardiovascular: Reports chest pain; Denies orthopnea, palpitations or racing heartbeat Respiratory/Chest Respiratory/Chest: Reports cough and sputum; Denies dyspnea or orthopnea Gastrointestinal Gastrointestinal: Denies abdominal pain, diarrhea, nausea or vomiting Genitourinary Genitourinary ED: Denies dysuria, hematuria or urinary frequency Musculoskeletal Musculoskeletal: Reports myalgias; Denies arthralgias Integumentary Denies abscess or rash Neurologic Neurologic: Denies headache(s) or weakness Psychiatric Psychiatric: Denies anxiety, depression, suicidal ideation or suicidal thoughts Endocrine Endocrinology: Denies polydipsia, polyphagia or polyuria Allergic/Immunologic Allergic/Immunologic ED: Denies mouth swelling, tongue swelling or urticaria EXAM Physical Exam Const Vital Signs: 02/24/21 14:42 02/24/21 14:58 02/24/21 15:28 Temperature 96.5 F L Temperature Source Temporal Pulse Rate 61 Respiratory Rate 20 H Respiratory Effort Normal Non-Labored Respiratory Depth Normal Respiratory Pattern Normal Blood Pressure 147/79 H Blood Pressure Mean 101 Pulse Ox 99 99 Oxygen Delivery Method Nasal Cannula Nasal Cannula Nasal Cannula Oxygen Flow Rate (L/min) 3 3 3 02/24/21 15:55 02/24/21 16:15 Temperature 97.7 F L Temperature Source Temporal Pulse Rate 60 60 Respiratory Rate 22 H 18 Respiratory Effort Respiratory Depth Respiratory Pattern Blood Pressure 146/76 H Blood Pressure Mean 99 Pulse Ox 97 97 Oxygen Delivery Method Nasal Cannula Nasal Cannula Oxygen Flow Rate (L/min) 3 3 Positive well nourished, well developed and obese General Appearance ED: well developed Nutritional Appearance: obese HEENT Reports normocephalic, head/scalp atraumatic, TM's clear and moist mucous membranes Negative for trauma Tympanic Membrane ED: Yes TM's clear Eyes PERRL and EOMs intact bilaterally Neck no lymphadenopathy, supple and no JVD Resp normal respiratory effort and clear to auscultation bilaterally Auscultation: diminished lung sounds Cardio regular rate, regular rhythm and no murmurs GI normal to inspection, nondistended, normoactive bowel sounds and non-tender Palpation: soft Back/Spine no CVA tenderness and normal ROM Extremity normal to inspection General Extremety ED: Negative for edema General Extremity: Negative for edema Neuro oriented x3 and CN's II-XII intact bilaterally Sensorium / Orientation: alert Motor Exam: strength 5/5 throughout Psych mental status grossly normal Mood & Affect: Negative for depressed or tearful Skin no rashes or lesions noted and no wounds MDM MDM MDM Narrative Medical decision making narrative: My interpretation of the chest x-ray is no acute process. White count is 4.3. BNP and troponin negative. CMP negative. Urinalysis negative. Patient is able to ambulate without hypoxemia. Influenza and COVID were negative. At this point I do not see an obvious cause for the patient's complaint of feeling poorly. As far as the rattle in his chest that the mentioned this morning could have just easily been a mucous. His symptoms are better after breathing treatment. Patient to be discharged home Lab Data Attestation: I reviewed the patient's lab results. Labs: Laboratory Results - last 24 hr 02/24/21 02/24/21 02/24/21 15:20 15:20 15:20 WBC 4.3 L RBC 3.57 L Hgb 11.7 L Hct 35.1 L MCV 98.3 H MCH 32.8 H MCHC 33.3 RDW Std Deviation 51.9 H RDW Coeff of Cinda 14.6 Plt Count 162 MPV 10.1 Immature Gran % (Auto) 0.200 Neut % (Auto) 66.9 Lymph % (Auto) 20.8 Blaine % (Auto) 8.1 Eos % (Auto) 3.5 Baso % (Auto) 0.5 Absolute Neuts (auto) 2.9 Absolute Lymphs (auto) 0.90 Nucleated RBC % 0 Sodium 142 Potassium 4.1 Chloride 102 Carbon Dioxide 35.0 H Anion Gap 5 BUN 18 Creatinine 0.84 Estim Creat Clear Calc 84.49 Est GFR (MDRD) Af Amer 116 Est GFR (MDRD) Non-Af 96 BUN/Creatinine Ratio 21.4 H Glucose 86 Calcium 9.1 Total Bilirubin 0.70 AST 28 ALT 29 Alkaline Phosphatase 84 Troponin I High Sens 20 B-Natriuretic Peptide 72.1 Total Protein 7.1 Albumin 3.4 Globulin 3.7 Albumin/Globulin Ratio 0.9 Urine Color Urine Clarity Urine pH Ur Specific [place] Urine Protein Urine Glucose (UA) Urine Ketones Urine Occult Blood Urine Nitrite Urine Bilirubin Urine Urobilinogen Ur Leukocyte Esterase Urine RBC Urine WBC Ur Squamous Epith Cells Urine Bacteria Urine Mucus 02/24/21 15:40 WBC RBC Hgb Hct MCV MCH MCHC RDW Std Deviation RDW Coeff of Cinda Plt Count MPV Immature Gran % (Auto) Neut % (Auto) Lymph % (Auto) Blaine % (Auto) Eos % (Auto) Baso % (Auto) Absolute Neuts (auto) Absolute Lymphs (auto) Nucleated RBC % Sodium Potassium Chloride Carbon Dioxide Anion Gap BUN Creatinine Estim Creat Clear Calc Est GFR (MDRD) Af Amer Est GFR (MDRD) Non-Af BUN/Creatinine Ratio Glucose Calcium Total Bilirubin AST ALT Alkaline Phosphatase Troponin I High Sens B-Natriuretic Peptide Total Protein Albumin Globulin Albumin/Globulin Ratio Urine Color Yellow Urine Clarity Clear Urine pH 7.0 Ur Specific [place] 1.005 Urine Protein Negative Urine Glucose (UA) Normal Urine Ketones Negative Urine Occult Blood Negative Urine Nitrite Negative Urine Bilirubin Negative Urine Urobilinogen Normal Ur Leukocyte Esterase Negative Urine RBC 0 SEEN Urine WBC 0 SEEN Ur Squamous Epith Cells 0-5 SEEN Urine Bacteria 0 SEEN Urine Mucus 0 SEEN Radiography Diagnostic Testing: Clinical Impression(s) from Imaging Studies Chest X-Ray 02/24/21 15:37 IMPRESSION: Interstitial prominence. Possible mild left basilar infiltrate. Electronically Signed: Ever Raines DO at 17:26 EST Tel [phone], Service support , EKG Initial EKG: Attestation: I personally reviewed and interpreted this EKG as follows: Comments: AV paced rhythm with ventricular rate of 61 bpm. Discharge Plan Triage Chief Complaint: Shortness of Breath ED Provider: Gerard Weeks Dx/Rx/DC Orders Clinical Impression: Acute dyspnea, Chronic respiratory failure, DM type 2 (diabetes mellitus, type 2), Atherosclerotic heart disease [place] coronary artery w/angina pectoris Instructions: ED Dyspnea Prescriptions: No Action clopidogrel [Plavix] 75 mg tablet 75 mg PO DAILY RF: 0 atorvastatin 80 MG tablet 80 mg PO QHS RF: 0 aspirin 81 MG tablet 81 mg PO DAILY@0800 RF: 0 finasteride 5 MG tablet 5 mg PO DAILY RF: 0 escitalopram oxalate 10 MG tablet 10 mg PO DAILY RF: 0 cholecalciferol (vitamin D3) [Vitamin D3] 1,000 UNIT tablet 3,000 units PO DAILY RF: 0 Humulin R U-500 (Conc) Kwikpen 500 UNIT/ML insulin pen 100 unit SQ BREAKFAST RF: 0 Humulin R U-500 (Conc) Kwikpen 500 UNIT/ML insulin pen 100 unit SQ DINNER RF: 0 nitroglycerin 0.4 MG tablet, sublingual 0.4 mg sublingual Q5M PRN (Reason: Chest Pain) Qty: 30 RF: 0 albuterol sulfate 1 INHALER inhaler 1 - 2 puff INHALATION 4X/DAY PRN PRN (Reason: Sob &/Or Wheezing) RF: 0 pantoprazole 40 MG tablet 40 mg PO BID RF: 0 carvedilol 25 MG tablet 25 mg PO BID RF: 0 multivitamin Tablet 1 tab PO DAILY RF: 0 furosemide 40 mg Tablet 40 mg PO DAILY RF: 0 potassium chloride [Klor-Con M20] 20 mEq Tablet,Er Particles/Crystals 20 meq PO DAILY RF: 0 ranolazine 500 mg Tablet Extended Release 12 Hr 500 mg PO BID RF: 0 acetaminophen [Tylenol] 325 MG tablet 325 mg PO Q6H PRN PRN (Reason: Mild pain 1-3/Temp > 100.7 F) RF: 0 ferrous sulfate 325 mg (65 mg iron) tablet 325 mg PO BID Qty: 60 RF: 0 guaifenesin 100 mg/5 mL Liquid 100 - 200 mg PO TID PRN (Reason: Cough) RF: 0 tamsulosin 0.4 MG capsule 0.8 mg PO QHS RF: 0 semaglutide (weight loss) 0.5 mg/0.5 mL Pen Injector 0.5 mg SUBCUT QWEEK RF: 0 [facility] Provider: [facility] Referrals: [facility] [Primary Care Provider] - Disposition Disposition: Home, Self Care
[2021-02-24] MEDS: Ketorolac 15 MG/ML Vial IV (15:27)
[2021-02-24 15:35] LABS: Absolute Neutrophil Count 2.9 X10^3/uL (2.0-7.7); Basophil# 0.02 X10^3/uL; Basophil% 0.5 % (0-1); Eosinophil# 0.15 X10^3/uL; Eosinophils% 3.5 % (0-5); Hematocrit 35.1 % (40-54); Hemoglobin 11.7 g/dL (13.0-16.5); Lymphocyte % 20.8 % (19-41); Mean Corp Hgb Conc 33.3 g/dL (32-36); Mean Corpuscular Hgb 32.8 pg (27.0-32.0); Mean Corpuscular Volume 98.3 fL (80-94); Mean Platelet Vol. 10.1 fl (6.2-12.0); Monocyte# 0.35 X10^3/uL; Monocyte% 8.1 % (0-10); NRBC Flagged by Analyzer 0 % (0-5); Neutrophil % 66.9 % (47-70); Platelet Count 162 K/mm3 (150-450); RBC Distribution Width CV 14.6 % (11.6-14.6); RBC Distribution Width SD 51.9 fl (35.1-43.9); Red Blood Count 3.57 M/mm3 (4.6-6.2); White Blood Count 4.3 K/mm3 (4.4-11.0)
--- NOTE | 2021-02-24 15:37 | RAD_ITS ---
STUDY: X-RAY CHEST REASON FOR EXAM: Male, 70 years old. Cough TECHNIQUE: Frontal view COMPARISON: 01/25/2021. FINDINGS: Stable sternotomy wires and left-sided pacemaker. Previous ORIF of multiple left ribs. The lungs are expanded. Mild interstitial prominence. Possible mild left basilar infiltrate. Normal size heart. Normal mediastinum and cata. Normal visualized pulmonary arteries. Normal visualized aortic arch and descending thoracic aorta. Normal visualized thoracic spine. Whole right clavicular injury. There is no demonstrated abnormality of the visualized soft tissue structures of the upper abdomen. RAD/Chest 1 View (Portable) IMPRESSION: Interstitial prominence. Possible mild left basilar infiltrate. Electronically Signed: Ever Raines DO at 17:26 EST Tel [phone], Service support ,
[2021-02-24 15:46] LABS: Bacteria 0 SEEN /hpf (None Seen); Mucous, Urine 0 SEEN /hpf (<or=2+); Red Blood Cells-Urine 0 SEEN /hpf (0-5); White Blood Cells 0 SEEN /hpf (0-5)
[2021-02-24 15:52] LABS: Color, Urine Yellow (Yellow); Glucose, Dipstick Normal (Normal); Ketone-Dipstick Negative (Negative); Leukocyte Esterase-Dipstick Negative /ul (Negative); Nitrite-Dipstick Negative (Negative); Occult Blood-Urine Negative /ul (Negative); Protein-Dipstick Negative (Negative); Specific Gravity, Urine 1.005 (1.002-1.030); Urine Bilirubin Dipstick Negative (Negative); Urine Clarity Clear (Clear); Urine Urobilinogen Normal (Normal)
[2021-02-24 15:57] LABS: BNP,B-Type NATRIURETIC PEPTIDE 72.1 pg/mL (0-100)
[2021-02-24 15:58] LABS: ALB/GLOB Ratio 0.9 RATIO (0.9-2.4); AST(SGOT) 28 U/L (15-37); Alanine Aminotransfer ALT/SGPT 29 U/L (16-61); Albumin, Serum 3.4 g/dL (3.2-5.0); Alkaline Phosphatase 84 U/L (45-117); Anion Gap 5 (5-15); BUN 18 mg/dL (7-18); BUN/Creat Ratio 21.4 RATIO (10-20); Calcium,Total 9.1 mg/dL (8.5-10.1); Chloride 102 mmol/L (98-107); Creatinine, Serum 0.84 mg/dL (0.70-1.30); EST Glomerular Filtration Rate 96 mL/min (>60); Est Glom Filt Rate - Afr Amer 116 mL/min (>60); Estimated Creatinine Clearance 84.49 ml/min; Globulin 3.7 g/dL (2.2-4.2); Glucose 86 mg/dL (74-106); Potassium 4.1 mmol/L (3.5-5.1); Protein, Total 7.1 g/dL (6.4-8.2); Sodium Level 142 mmol/L (136-145); Troponin-I HS 20 pg/mL (3.0-78.0)
[2021-02-24 16:01] LABS: Squamous Epithelial Cells - UA 0-5 SEEN /hpf (0-5)
[2021-02-24] MEDS: Albuterol 2.5 MG/3 ML VIAL.NEB. INHALATION (16:09)
== END 2021-02-24 17:57 | disposition home or self-care (01) ==
PROVIDERS: Emergency Provider Emergency Medicine; Visit Provider Emergency Medicine
DX: J96.10 Chronic respiratory failure, unspecified whether with hypoxia or hypercapnia (principal); J44.9 Chronic obstructive pulmonary disease, unspecified; I11.0 Hypertensive heart disease with heart failure; I50.9 Heart failure, unspecified; I25.119 Atherosclerotic heart disease of native coronary artery with unspecified angina pectoris; E11.9 Type 2 diabetes mellitus without complications; Z79.4 Long term (current) use of insulin; E78.5 Hyperlipidemia, unspecified; E66.9 Obesity, unspecified; G47.33 Obstructive sleep apnea (adult) (pediatric); I25.2 Old myocardial infarction; Z95.1 Presence of aortocoronary bypass graft; Z95.5 Presence of coronary angioplasty implant and graft; Z95.0 Presence of cardiac pacemaker; Z86.73 Personal history of transient ischemic attack (TIA), and cerebral infarction without residual deficits; Z99.81 Dependence on supplemental oxygen; Z79.899 Other long term (current) drug therapy; Z87.891 Personal history of nicotine dependence
CPT/HCPCS: 36415; 71045; 80053; 81001; 83880; 84484; 85025; 87040; 87426; 87804; 93005; 94640; 96374; 99284; A4216

== ENCOUNTER 2021-03-24 11:57 | Emergency (ER) | payer OTHER, SELFPAY ==
[2021-03-24 12:00] VITALS: BP 107/85; PULSE 73; RESP 19; TEMP 36.6; O2SAT 100; BMI 34.4
[2021-03-24 12:13] VITALS: PULSE 68; RESP 16; O2SAT 97; O2SAT 98
--- NOTE | 2021-03-24 12:21 | EKG12_ITS ---
Test Reason : CHEST PRESSURE Blood Pressure : / mmHG Vent. Rate : 069 BPM Atrial Rate : 069 BPM P-R Int : 206 ms QRS Dur : 120 ms QT Int : 450 ms P-R-T Axes : 085 -33 058 degrees QTc Int : 482 ms Normal sinus rhythm Left axis deviation Nonspecific ST and T wave abnormality Abnormal ECG Confirmed by PADILLA GUALLPA, CALI ([id number]), news video editor NADINE FERRER ([id number]) on 03/25/2021 11:09:39 AM Referred By: DON/ELPIDIO Confirmed By:CALI CAUSEY MD
--- NOTE | 2021-03-24 12:22 | ED.VIS.DYS ---
HPI History of Present Illness Chief Complaint: Shortness of Breath Detail of Chief Complaint: Short of breath and chest discomfort Informant: patient and spouse/S.O. Narrative Narrative: Patient presents to the emergency department stating that he started having shortness of breath this morning. Patient states that he was diagnosed with COVID-19 on 02 March and had monoclonal antibody infusion. Patient was not immunized at that time. Patient has as needed home O2. Patient also complaining of some chest pain that sharp and stabbing and similar to chronic chest pain he has. Patient has been seen in this emergency department numerous times for same complaint of chest discomfort and he tells me this is similar to what he always experiences. Patient denies any significant cough. He denies sputum production. He denies fever. 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 BiPAP (biphasic positive airway pressure) dependence Chest pain Chronic respiratory failure Congestive heart failure (CHF) Diabetes Essential (primary) hypertension Former smoker History of fractured rib Hyperlipidemia Myocardial infarct Obesity On home oxygen therapy EKATERINA (obstructive sleep apnea) Pacemaker Pacemaker battery depletion Pulmonary embolism Sick sinus syndrome Stroke/cerebrovascular accident Wears hearing aid in both ears Home Medications Humulin R U-500 (Conc) Kwikpen 100 unit SQ BREAKFAST 06/11/18 [History Last Taken 08/09/20] Humulin R U-500 (Conc) Kwikpen 100 unit SQ DINNER 06/11/18 [History Last Taken 08/09/20] aspirin 81 mg PO DAILY@0800 06/11/18 [History Last Taken 08/09/20] atorvastatin 80 mg PO QHS 06/11/18 [History Last Taken 08/09/20] cholecalciferol (vitamin D3) [Vitamin D3] 3,000 units PO DAILY 06/11/18 [History Last Taken 08/09/20] escitalopram oxalate 10 mg PO DAILY 06/11/18 [History Last Taken 08/09/20] finasteride 5 mg PO DAILY 06/11/18 [History Last Taken 08/09/20] nitroglycerin 0.4 mg SUBLINGUAL Q5M PRN #30 tablet 07/22/18 [Rx Last Taken 01/17/20] albuterol sulfate 1 - 2 puff INHALATION 4X/DAY PRN PRN 04/08/20 [History Last Taken 07/05/20] pantoprazole 40 mg PO BID 05/18/20 [History Last Taken 08/09/20] acetaminophen [Tylenol] 325 mg PO Q6H PRN PRN 06/22/20 [History Last Taken 07/05/20] carvedilol 25 mg PO BID 06/22/20 [History Last Taken 08/09/20] furosemide 40 mg PO DAILY 06/22/20 [History Last Taken 08/09/20] multivitamin 1 tab PO DAILY 06/22/20 [History Last Taken 08/09/20] potassium chloride [Klor-Con M20] 20 meq PO DAILY 06/22/20 [History Last Taken 08/09/20] ranolazine 500 mg PO BID 06/22/20 [History Last Taken 08/09/20] ferrous sulfate 325 mg PO BID #60 tab 06/23/20 [Rx Last Taken 08/09/20] guaifenesin 100 - 200 mg PO TID PRN 07/05/20 [History Last Taken 1 Week Ago ~08/03/20] tamsulosin 0.8 mg PO QHS 08/10/20 [History Last Taken 08/09/20] clopidogrel 75 mg tablet 75 mg PO DAILY 01/07/21 [History Last Taken Unknown] semaglutide (weight loss) 0.5 mg SUBCUT QWEEK 02/24/21 [History Last Taken Unknown] levofloxacin 750 mg PO DAILY #7 tab 03/24/21 [Rx Last Taken Unknown] Allergy/AdvReac Type Severity Reaction Status Date / Time ezetimibe Allergy Unknown Verified 03/24/21 11:59 Fish Containing Products Allergy Unknown Verified 03/24/21 11:59 glyburide Allergy Unknown Verified 03/24/21 11:59 isosorbide Allergy PT UNSURE Verified 03/24/21 11:59 OF REACTION lisinopril Allergy Unknown Verified 03/24/21 11:59 metformin Allergy Nausea Verified 03/24/21 11:59 metoprolol Allergy Unknown Verified 03/24/21 11:59 simvastatin Allergy Unknown Verified 03/24/21 11:59 Family History Father No problems noted. Surgical History H/O coronary artery bypass surgery History of cholecystectomy History of coronary artery stent placement History of knee replacement procedure of left knee History of permanent cardiac pacemaker placement (01/14/21) Social History household members: spouse Smoking Status: Former smoker substance use type: does not use ROS ROS ED Constitutional Constitutional ED: Reports systems reviewed and no addt'l complaints, except as documented; Denies body ache(s), change in weight or chills Eyes Eyes: Denies acute decrease in peripheral vision, change in vision, double vision or loss of vision ENT ENT ED: Reports none; Denies ear pain, lip swelling, loss taste/smell, neck pain, otalgia or sore throat Cardiovascular Cardiovascular: Reports none and chest pain; Denies abdominal pain, chest pain with activity, leg edema, lightheadedness, palpitations, rapid heart rate or syncope Respiratory/Chest Respiratory/Chest: Reports none and dyspnea; Denies change in mental status, dry cough, hemoptysis, shortness of breath at rest or shortness of breath with exertion Gastrointestinal Gastrointestinal: Reports none; Denies abdominal pain, change in stool character, diarrhea, hematemesis, hematochezia, melena, rectal bleeding or vomiting Genitourinary Genitourinary ED: Reports none; Denies abdominal discomfort, anuria, dysuria, genital pain or polyuria Musculoskeletal Musculoskeletal: Reports none; Denies arthralgias, back pain, difficulty walking, extremity pain, muscle weakness or myalgias Integumentary Reports none; Denies abscess or rash Neurologic Neurologic: Reports none; Denies abnormal gait, confusion, focal weakness, frequent falls, headache(s), loss of vision, numbness, paresthesias, radicular pain, vertigo or weakness Psychiatric Psychiatric: Reports systems reviewed and no addt'l complaints, except as documented and none; Denies behavioral changes, confusion, difficulty concentrating, hallucinations, suicidal ideation, tactile hallucinations or visual hallucinations Endocrine Endocrinology: Denies none, cold intolerance, excessive sweating, fatigue or heat intolerance Hematologic/Lymphatic Hematologic/Lymphatic: Reports none; Denies anemia, easy bleeding or easy bruising Allergic/Immunologic Allergic/Immunologic ED: Denies as per HPI, none, lip swelling, mouth swelling, throat swelling, tongue swelling or hives EXAM Physical Exam Const Vital Signs: 03/24/21 12:00 03/24/21 12:13 03/24/21 12:35 Temperature 97.9 F Temperature Source Temporal Pulse Rate 73 68 Respiratory Rate 19 H 16 Respiratory Effort Normal Respiratory Depth Normal Respiratory Pattern Normal Blood Pressure 107/85 H Blood Pressure Mean 92 Pulse Ox 100 98 97 Oxygen Delivery Method Nasal Cannula Room Air Nasal Cannula Oxygen Flow Rate (L/min) 3 3 3 Positive well nourished and well developed General Appearance ED: well developed and NAD HEENT Reports TM's clear and moist mucous membranes normocephalic and atraumatic; Negative for trauma or tenderness Tympanic Membrane ED: Yes TM's clear Eyes PERRL and EOMs intact bilaterally General Eye ED: Negative for pale conjunctiva or scleral icterus Neck no lymphadenopathy, supple and no JVD General: Negative for tenderness Chest Wall inspection of chest normal and palpation of chest normal Chest: Negative for tenderness Resp normal respiratory effort and clear to auscultation bilaterally Effort and Inspection: Negative for respiratory distress or pain with movement Auscultation: rhonchi; Negative for wheezes or diminished lung sounds Cardio regular rate, regular rhythm, S1 normal heart sound, S2 normal heart sound and no murmurs Peripheral Pulses: pulses 2+ throughout GI normal to inspection, nondistended, normoactive bowel sounds, soft to palpation, non-tender, non-distended and no masses Back/Spine no CVA tenderness and no thoracic nor lumbar tenderness Extremity normal to inspection General Extremety ED: Negative for edema General Extremity: Negative for edema Neuro oriented x3, CN's II-XII intact bilaterally, no sensory deficits noted and gait normal Sensorium / Orientation: awake, alert, oriented to person, oriented to place and oriented to time Motor Exam: strength 5/5 throughout and strength abnormal Psych mental status grossly normal Skin no rashes or lesions noted and no wounds MDM MDM MDM Narrative Medical decision making narrative: IV line established on arrival. Patient was given fentanyl 50 mcg IV. Lab work-up was unremarkable other than a elevated D-dimer and given his recent Covid infection a CTA of the chest was obtained which was negative for PE. Patient was noted to have small bilateral effusions and left lower lobe consolidation and right upper lobe infiltrate suspicious for pneumonia. Patient had recent Covid infection about 3 weeks ago so it is unclear how much of this changes related to the Covid or if this is a new bacterial pneumonia potentially. Clinically he looks well and he has a normal white cell count and he is not hypoxic on the oxygen. Patient will be started on Levaquin and given first dose in the emergency department. Chest pain I do not feel it is cardiac in nature as he has had continuous pain for more than 12 hours and has a normal troponin and an unchanged EKG. Patient advised to follow-up with primary care physician in 3 to 5 days. He is advised to return if increasing shortness of breath or condition should worsen anyway. Lab Data Attestation: I reviewed the patient's lab results. Labs: Laboratory Results - last 24 hr 03/24/21 03/24/21 03/24/21 12:33 12:33 12:33 WBC 4.8 RBC 3.34 L Hgb 11.0 L Hct 33.7 L MCV 100.9 H MCH 32.9 H MCHC 32.6 RDW Std Deviation 60.9 H RDW Coeff of Cinda 16.3 H Plt Count 149 L MPV 10.7 Immature Gran % (Auto) 0.200 Neut % (Auto) 79.3 H Lymph % (Auto) 11.2 L [place] % (Auto) 7.8 Eos % (Auto) 1.3 Baso % (Auto) 0.2 Absolute Neuts (auto) 3.8 Absolute Lymphs (auto) 0.53 L Nucleated RBC % 0 Anisocytosis 2+ D-Dimer Quant (PE/DVT) 1.75 H* Sodium 140 Potassium 3.5 Chloride 102 Carbon Dioxide 32.0 Anion Gap 6 BUN 13 Creatinine 0.85 Estim Creat Clear Calc 83.50 Est GFR (MDRD) Af Amer 115 Est GFR (MDRD) Non-Af 95 BUN/Creatinine Ratio 15.3 Glucose 240 H Calcium 7.8 L Troponin I High Sens 21 Radiography Diagnostic Testing: Clinical Impression(s) from Imaging Studies Chest X-Ray 03/24/21 12:40 IMPRESSION: No active disease. Electronically Signed: Ashish Salazar MD at 13:11 EST , Chest CTA 02/06/22 13:17 IMPRESSION: No visualized pulmonary embolism. Small bilateral effusions. Left lower lobe consolidation right upper lobe infiltrate suspicious for pneumonia. This may be superimposed on pulmonary edema. Small ovoid loculated fluid within the left major fissure Reactive numerous prevascular mediastinal lymph nodes. Cardiomegaly. Status post cholecystectomy. Electronically Signed: Kristyn Zhang MD at 14:03 EST , EKG Initial EKG: Attestation: I personally reviewed and interpreted this EKG as follows: Comments: Sinus rhythm with a ventricular rate [address] changes Prior EKG tracings: available for review Prior: Unchanged Discharge Plan Triage Chief Complaint: Shortness of Breath ED Provider: Jaydon Armstrong Dx/Rx/DC Orders Clinical Impression: Chest pain, Pneumonia Instructions: ED Chest Pain, Uncertain Cause, ED Pneumonia (Adult) Prescriptions: New levofloxacin 750 mg tablet 750 mg PO DAILY Qty: 7 RF: 0 No Action clopidogrel [Plavix] 75 mg tablet 75 mg PO DAILY RF: 0 atorvastatin 80 MG tablet 80 mg PO QHS RF: 0 aspirin 81 MG tablet 81 mg PO DAILY@0800 RF: 0 finasteride 5 MG tablet 5 mg PO DAILY RF: 0 escitalopram oxalate 10 MG tablet 10 mg PO DAILY RF: 0 cholecalciferol (vitamin D3) [Vitamin D3] 1,000 UNIT tablet 3,000 units PO DAILY RF: 0 Humulin R U-500 (Conc) Kwikpen 500 UNIT/ML insulin pen 100 unit SQ BREAKFAST RF: 0 Humulin R U-500 (Conc) Kwikpen 500 UNIT/ML insulin pen 100 unit SQ DINNER RF: 0 nitroglycerin 0.4 MG tablet, sublingual 0.4 mg sublingual Q5M PRN (Reason: Chest Pain) Qty: 30 RF: 0 albuterol sulfate 1 INHALER inhaler 1 - 2 puff INHALATION 4X/DAY PRN PRN (Reason: Sob &/Or Wheezing) RF: 0 pantoprazole 40 MG tablet 40 mg PO BID RF: 0 carvedilol 25 MG tablet 25 mg PO BID RF: 0 multivitamin Tablet 1 tab PO DAILY RF: 0 furosemide 40 mg Tablet 40 mg PO DAILY RF: 0 potassium chloride [Klor-Con M20] 20 mEq Tablet,Er Particles/Crystals 20 meq PO DAILY RF: 0 ranolazine 500 mg Tablet Extended Release 12 Hr 500 mg PO BID RF: 0 acetaminophen [Tylenol] 325 MG tablet 325 mg PO Q6H PRN PRN (Reason: Mild pain 1-3/Temp > 100.7 F) RF: 0 ferrous sulfate 325 mg (65 mg iron) tablet 325 mg PO BID Qty: 60 RF: 0 guaifenesin 100 mg/5 mL Liquid 100 - 200 mg PO TID PRN (Reason: Cough) RF: 0 tamsulosin 0.4 MG capsule 0.8 mg PO QHS RF: 0 semaglutide (weight loss) 0.5 mg/0.5 mL Pen Injector 0.5 mg SUBCUT QWEEK RF: 0 [facility] [facility] [Primary Care Provider] -
[2021-03-24] MEDS: Aspirin 81 MG TAB.CHEW 324 MG PO (12:30)
[2021-03-24 12:35] VITALS: O2SAT 97
[2021-03-24] MEDS: 0.9% Normal Saline 1,000 ML 150 ML IV (12:35)
--- NOTE | 2021-03-24 12:40 | RAD_ITS ---
STUDY: X-RAY CHEST REASON FOR EXAM: Male, 70 years old. chest pain TECHNIQUE: Single AP portable view of the chest. COMPARISON: 02/24/2021 FINDINGS: Left subclavian dual-lead pacemaker which is unchanged. Status post median sternotomy. The lungs are clear and expanded. There is no demonstrated pleural abnormality. There is moderate cardiac enlargement. Normal mediastinum and cata. Normal visualized pulmonary arteries. Normal visualized aortic arch and descending thoracic aorta. Normal visualized thoracic spine. Multiple healed left rib fractures with metallic plates. There is no demonstrated abnormality of the visualized soft tissue structures of the upper abdomen. RAD/Chest 1 View (Portable) IMPRESSION: No active disease. Electronically Signed: Ashish Salazar MD at 13:11 EST ,
[2021-03-24] MEDS: fentaNYL 100 MCG/2 ML Ampul 50 MCG IV (12:43)
[2021-03-24 12:44] LABS: Absolute Lymphocyte Count 0.53 X10^3/uL (0.83-4.51); Absolute Neutrophil Count 3.8 X10^3/uL (2.0-7.7); Basophil# 0.01 X10^3/uL; Basophil% 0.2 % (0-1); Eosinophil# 0.06 X10^3/uL; Eosinophils% 1.3 % (0-5); Hematocrit 33.7 % (40-54); Lymphocyte # 0.53 X10^3/ul (0.83-4.51); Lymphocyte % 11.2 % (19-41); Mean Corp Hgb Conc 32.6 g/dL (32-36); Mean Corpuscular Hgb 32.9 pg (27.0-32.0); Mean Corpuscular Volume 100.9 fL (80-94); Mean Platelet Vol. 10.7 fl (6.2-12.0); Monocyte# 0.37 X10^3/uL; Monocyte% 7.8 % (0-10); NRBC Flagged by Analyzer 0 % (0-5); Neutrophil # 3.77 X10^3/uL (2.7-7.7); Neutrophil % 79.3 % (47-70); POSITIVE DIFFERENTIAL YES; Platelet Count 149 K/mm3 (150-450); RBC Distribution Width CV 16.3 % (11.6-14.6); RBC Distribution Width SD 60.9 fl (35.1-43.9); Red Blood Count 3.34 M/mm3 (4.6-6.2); White Blood Count 4.8 K/mm3 (4.4-11.0)
[2021-03-24 12:48] LABS: Differential Indicated SCAN CRITERIA MET
[2021-03-24 12:59] LABS: Anion Gap 6 (5-15); BUN 13 mg/dL (7-18); BUN/Creat Ratio 15.3 RATIO (10-20); Calcium,Total 7.8 mg/dL (8.5-10.1); Chloride 102 mmol/L (98-107); Creatinine, Serum 0.85 mg/dL (0.70-1.30); EST Glomerular Filtration Rate 95 mL/min (>60); Est Glom Filt Rate - Afr Amer 115 mL/min (>60); Glucose 240 mg/dL (74-106); Potassium 3.5 mmol/L (3.5-5.1); Sodium Level 140 mmol/L (136-145); Troponin-I HS 21 pg/mL (3.0-78.0)
[2021-03-24 13:01] LABS: D-Dimer Quantitative (DVT/PE) 1.75 FEU/ug/m (0.27-0.49)
[2021-03-24 13:03] LABS: Anisocytosis 2+
--- NOTE | 2021-03-24 13:17 | CT_ITS ---
STUDY: CTA CHEST REASON FOR EXAM: Male, 70 years old. Chest pain, dyspnea RADIATION DOSAGE (If Supplied By Facility): CTDIvol = ( 30.62 ) mGy, DLP = ( 693.75 ) mGycm TECHNIQUE: The examination was performed with the intravenous administration of IV 100mL Isovue-370. Post-processing of the angiographic images was performed, with multiplanar reformation and 3D reconstruction. Individualized dose optimization techniques were used for this CT. COMPARISON: 03.24.21 chest x-ray FINDINGS: Normal enhancement of the main pulmonary artery and right and left pulmonary arteries. Normal enhancement of the bilateral peripheral pulmonary arteries. There is no demonstrated pulmonary embolism. There is minimal calcification of the aorta. The aorta is partially calcified. There is no demonstrated aortic dissection. There is mild to moderate cardiac enlargement. Sternotomy wires are seen midline. There are multiple reactive lymph nodes especially in the prevascular space measuring 1.6 1.3-1.5 cm. There are at least 5-10 lymph nodes in the prevascular space. There are also multiple lymph nodes to the right of the trachea measuring up to 1.3 cm. Normal hilar regions. Normal visualized trachea and bronchi. There is a small right pleural effusion. There is a small left pleural effusion with a loculated component in the major fissure. There is left lower lobe consolidation. There is a small focus of patchy density within the right upper lobe best seen image 103 series 602 on sagittal view. There are multiple cortical plates transfixing the left-sided ribs. Sternotomy wires are seen midline. Is visualized kyphosis. There is multilevel degenerative change. Postoperative changes status post cholecystectomy. CT/CTA Chest W/WO Contrast IMPRESSION: No visualized pulmonary embolism. Small bilateral effusions. Left lower lobe consolidation right upper lobe infiltrate suspicious for pneumonia. This may be superimposed on pulmonary edema. Small ovoid loculated fluid within the left major fissure Reactive numerous prevascular mediastinal lymph nodes. Cardiomegaly. Status post cholecystectomy. Electronically Signed: Kristyn Zhang MD at 14:03 EST ,
[2021-03-24] MEDS: levoFLOXacin 750 MG Tablet PO (14:31)
[2021-03-24 14:36] VITALS: BP 171/76; PULSE 65; RESP 22; O2SAT 96
--- NOTE | 2021-03-25 17:24 | CM.ED ---
ER DC F/u Call: Patient seen in ER 2.08.07 for SOB. Dx with Covid 03/02/21 and iws on Home O2. Dc'd with po Abx. Called patient's listed number on demographics. Patient answered, this expert medical writer introduced self and role. Patient states not feeling better but not feeling worse. On Home O2 3lpm continuous and states he gets pretty SOB with exertion and was able to go to bathroom but had to bump to 4lpm for a short period of time. Was able to decrease O2 back down to 3lpm shortly after and recoup. States his attempted to call [facility] to make an [facility] and left a message a couple times this morning but received no return call. Confirmed picked up his po Abx and has taken a dose. Has a pulse Ox and states reading >91%. Discussed accuracy of reading, O2 levels to sustain >91% and if dropping below 89-90%- s/s when to be seen if unable to recoup and sustained. Patient states understanding and agreeable to have ER RNCM to f/u with him tomorrow to inquire about assistance calling the [facility] to see if an appointment can be made. Patient has been sleeping propped up on two pillows. Patient noted to speak in clear full sentences throughout our conversation. FRANCO Swann
--- NOTE | 2021-03-26 10:43 | CASEMGMT ---
KRISTI GERONIMO ED follow-up: Date of ER visit:03/24/2021 ER presenting complaint: shortness of breath, recent COVID Dx: pneumonia KRISTI GERONIMO placed call to patient's telephone number listed on demographics, patient answered. Patient reports continues to use home oxygen at 3LPM including at night when using BiPAP. Monitoring SpO2 using portable pulse oximeter. Patient reports taking prescribed medication as ordered. Patient states eating and drinking well. Patient's then speaks to KRISTI GERONIMO on telephone, reports unable to schedule [facility] appointment with [facility]. states she was able to speak to patient's nurse via telephone yesterday and was instructed to make sure patient completes prescribed antibiotics and then call back in 10 days if not better. Patient's informed that KRISTI GERONIMO would contact [facility] to stress importance of close follow-up. Patient's educated on benefits of patient lying prone with recent COVID infection. Voices understanding. Patient denies further questions or concerns. KRISTI Galicia
--- NOTE | 2021-03-26 10:52 | CASEMGMT ---
Addendum entered by Kristen Perez 03/26/21 17:47: No call-back from [facility] yet received. KRISTI GERONIMO placed call to patient to inform of efforts to assist with scheduling follow-up and continue to await call back. Original Note: KRISTI GERONIMO placed call to [facility] , spoke with scheduling staff to inform of need for close follow-up for patient with dx pneumonia with hx of CHF, COPD and chronic respiratory failure on home oxygen. Staff member states patient's PCP is out of the office for some time and appointment likely unavailable until April. Staff member forwarded call to patient's nurse's extension with no answer. Voice mail left with call-back information requesting return call, stressing importance of need for close follow-up. KRISTI Galicia CM
== END 2021-03-24 23:59 | disposition home or self-care (01) ==
LOC: ED 12:32
PROVIDERS: Emergency Provider Emergency Medicine; Visit Provider Emergency Medicine
DX: J18.9 Pneumonia, unspecified organism (principal); I11.0 Hypertensive heart disease with heart failure; I50.9 Heart failure, unspecified; E11.9 Type 2 diabetes mellitus without complications; Z79.4 Long term (current) use of insulin; Z87.891 Personal history of nicotine dependence; I25.10 Atherosclerotic heart disease of native coronary artery without angina pectoris; E78.5 Hyperlipidemia, unspecified; Z79.82 Long term (current) use of aspirin
CPT/HCPCS: 71045; 71275; 80048; 84484; 85025; 85379; 93005; 96361; 96374; 99285; J7030; Q9967; A4216

== ENCOUNTER 2021-06-07 13:19 | Inpatient (IN) | payer OTHER, SELFPAY ==
[2021-06-07] VITALS (13 sets, daily range): BP systolic 126–165; BP diastolic 66–95; PULSE 56–67; RESP 16–21; TEMP 36.4–37.1; O2SAT 96–99; BMI 34.7; BMI 34.1
--- NOTE | 2021-06-07 13:22 | EKG12_ITS ---
Test Reason : ABDOM PAIN Blood Pressure : / mmHG Vent. Rate : 065 BPM Atrial Rate : 065 BPM P-R Int : 000 ms QRS Dur : 136 ms QT Int : 474 ms P-R-T Axes : 000 -74 094 degrees QTc Int : 492 ms Wide QRS rhythm with frequent AV dual-paced complexes and Premature supraventricular complexes Left axis deviation Abnormal ECG Confirmed by YUNI GUALLPA, JOANNA ([id number]), supervising editor news reel NADINE FERRER ([id number]) on 06/11/2021 8:56:42 AM Referred By: Confirmed By:JOANNA MORRISSEY MD
--- NOTE | 2021-06-07 13:23 | CT_ITS ---
HISTORY: Neuro deficit, acute, stroke suspected. TECHNIQUE: Multiple axial images were obtained of the brain without intravenous contrast. A radiation dose optimization technique was used for this scan. # of images incl. paperwork: 272. COMPARISON: 01/25/2021. FINDINGS: BRAIN PARENCHYMA:Multiple small foci and zones of low attenuation in the cerebral white matter most compatible with chronic small vessel ischemic gliosis. INTRACRANIAL HEMORRHAGE: No acute intracranial hemorrhage. CSF SPACES/MASS EFFECT: Diffuse atrophy with compensatory ventricular enlargement. No midline shift or other significant mass effect. ORBITS: Unremarkable. CALVARIUM: Intact. PARANASAL SINUSES AND MASTOID AIR CELLS: Small frontoethmoid osteoma incidentally noted. ASPECTS Score for Acute Strokes: 10. CT/STROKE Brain/Head without Cont IMPRESSION: No acute intracranial process identified. Chronic small vessel ischemic gliosis. Individualized dose optimization techniques were used for this CT. at 1421 Reported and signed by: Michelle Tomlinson MD N.B. : The above Results were Read Back by Michelle Tomlinson MD to Yadiel Guzman MD, and understanding confirmed on 06/07/2021 14:21:59 (ET). Electronically Signed: Michelle Tomlinson MD at 14:20 EDT Reading Location ID and State: [facility] / [place] Tel , Service support ,
--- NOTE | 2021-06-07 13:32 | EDS_ITS ---
HPI History of Present Illness Chief Complaint: Other, Pain/Inj Detail of Chief Complaint: Weakness left side and trouble with speech Informant: spouse/S.O. Onset/Context/Timing Onset: - (Unknown last known well June 06 at 1700) Context: - (Presumed acute) Timing: Continuous (Presumed constant since onset) Quality and Location: Positive for Left Arm Weakness, Left Leg Weakness, Expressive Aphasia and Difficulty with Ambulation Onset: Last known well June 06 at 1700 Current Severity: Severe Maximum Severity: Severe Worsened by: Presumed stroke Relieved by: Nothing Associated Symptoms Associated Symptoms: Positive for - (None) Narrative Narrative: Patient is a 70-year-old male with history of sick sinus syndrome, diabetes, coronary disease, COPD, dysarthria, prior stroke and obstructive sleep apnea who was brought to the emergency department because states he is having trouble with speech and using the left side. Is normally able to ambulate on his own. He is presently is not. He was last known well June 06 at 1700. History is limited to what can provide. Very difficult to understand what he is attempting to say. Prior similar symptoms: Yes Recent Illness/Hospitalization: No [facility] Medical History Abnormal EKG Anemia Atherosclerotic heart disease [place] coronary artery w/angina pectoris BiPAP (biphasic positive airway pressure) dependence Chest pain Chronic respiratory failure Congestive heart failure (CHF) Diabetes Essential (primary) hypertension Former smoker History of fractured rib Hyperlipidemia Myocardial infarct Obesity On home oxygen therapy EKATERINA (obstructive sleep apnea) Pacemaker Pacemaker battery depletion Pulmonary embolism Sick sinus syndrome Stroke/cerebrovascular accident Wears hearing aid in both ears Home Medications Humulin R U-500 (Conc) Kwikpen 100 unit SQ BREAKFAST 06/11/18 [History Last Taken 08/09/20] Humulin R U-500 (Conc) Kwikpen 100 unit SQ DINNER 06/11/18 [History Last Taken 08/09/20] aspirin 81 mg PO DAILY@0800 06/11/18 [History Last Taken 08/09/20] atorvastatin 80 mg PO QHS 06/11/18 [History Last Taken 08/09/20] cholecalciferol (vitamin D3) [Vitamin D3] 3,000 units PO DAILY 06/11/18 [History Last Taken 08/09/20] escitalopram oxalate 10 mg PO DAILY 06/11/18 [History Last Taken 08/09/20] finasteride 5 mg PO DAILY 06/11/18 [History Last Taken 08/09/20] nitroglycerin 0.4 mg SUBLINGUAL Q5M PRN #30 tablet 07/22/18 [Rx Last Taken 01/17/20] albuterol sulfate 1 - 2 puff INHALATION 4X/DAY PRN PRN 04/08/20 [History Last Taken 07/05/20] pantoprazole 40 mg PO BID 05/18/20 [History Last Taken 08/09/20] acetaminophen [Tylenol] 325 mg PO Q6H PRN PRN 06/22/20 [History Last Taken 07/05/20] carvedilol 25 mg PO BID 06/22/20 [History Last Taken 08/09/20] furosemide 40 mg PO DAILY 06/22/20 [History Last Taken 08/09/20] multivitamin 1 tab PO DAILY 06/22/20 [History Last Taken 08/09/20] potassium chloride [Klor-Con M20] 20 meq PO DAILY 06/22/20 [History Last Taken 08/09/20] ranolazine 500 mg PO BID 06/22/20 [History Last Taken 08/09/20] ferrous sulfate 325 mg PO BID #60 tab 06/23/20 [Rx Last Taken 08/09/20] guaifenesin 100 - 200 mg PO TID PRN 07/05/20 [History Last Taken 1 Week Ago ~08/03/20] tamsulosin 0.8 mg PO QHS 08/10/20 [History Last Taken 08/09/20] clopidogrel 75 mg tablet 75 mg PO DAILY 01/07/21 [History Last Taken Unknown] semaglutide (weight loss) 0.5 mg SUBCUT QWEEK 02/24/21 [History Last Taken Unknown] levofloxacin 750 mg PO DAILY #7 tab 03/24/21 [Rx Last Taken Unknown] Allergy/AdvReac Type Severity Reaction Status Date / Time ezetimibe Allergy Unknown Verified 06/07/21 13:24 Fish Containing Products Allergy Unknown Verified 06/07/21 13:24 glyburide Allergy Unknown Verified 06/07/21 13:24 isosorbide Allergy PT UNSURE Verified 06/07/21 13:24 OF REACTION lisinopril Allergy Unknown Verified 06/07/21 13:24 metformin Allergy Nausea Verified 06/07/21 13:24 metoprolol Allergy Unknown Verified 06/07/21 13:24 simvastatin Allergy Unknown Verified 06/07/21 13:24 Family History Father No problems noted. Surgical History H/O coronary artery bypass surgery History of cholecystectomy History of coronary artery stent placement History of knee replacement procedure of left knee History of permanent cardiac pacemaker placement (01/14/21) Social History household members: spouse Smoking Status: Former smoker substance use type: does not use ROS ROS ED Review of Systems ROS Unobtainable: due to mental status Neurologic Neurologic: Reports weakness EXAM Physical Exam Const Vital Signs: 06/07/21 13:20 06/07/21 13:31 Temperature 98.7 F Temperature Source Oral Pulse Rate 67 Respiratory Rate 16 Blood Pressure 146/83 H Blood Pressure Mean 104 Pulse Ox 98 97 Oxygen Delivery Method Nasal Cannula Nasal Cannula Oxygen Flow Rate (L/min) 2 2 Positive well nourished, well developed and obese General Appearance ED: well developed and NAD Nutritional Appearance: obese HEENT Reports TM's clear and moist mucous membranes atraumatic; Negative for trauma Nose: other Other Details: Uvula midline. No erythema exudate the posterior pharynx. No angioedema. Tympanic Membrane ED: Yes TM's clear Eyes PERRL and EOMs intact bilaterally General Eye ED: Negative for pale conjunctiva or scleral icterus Neck no lymphadenopathy, supple and no JVD Neck Narrative: No carotid bruit noted on the right or left. Chest Wall inspection of chest normal and palpation of chest normal Resp normal respiratory effort and clear to auscultation bilaterally Cardio no murmurs Rate: regular rate Rhythm: regular rhythm Heart Sounds: S1 normal and S2 normal GI normal to inspection, nondistended, normoactive bowel sounds, soft to palpation and non-tender Back/Spine no CVA tenderness Cervical Spine: Negative for cervical spine tenderness Thoracic Spine / Upper Back: Negative for thoracic spinal tenderness Lumbar Spine / Lower Back: Negative for lumbar spinal tenderness Extremity normal to inspection Neuro oriented x3 and no sensory deficits noted Sensorium / Orientation: alert Motor Exam: Negative for strength 5/5 throughout Psych Negative for mental status grossly normal Skin no wounds General Skin Exam: Negative for jaundice Lesions: no lesions Rashes: no rashes and No rashes noted STROKE Vital Signs/Narrative: Vital Signs Temp Pulse Resp BP Pulse Ox 06/07/21 13:31 97 06/07/21 13:20 98.7 F 67 16 146/83 H 98 NIHSS Initial: 1a Level of Consciousness: 1 1c LOC Commands (Only score 1st attempt): 0 2 Best Gaze (If aphasic, use reflexive mvmts.): 0 3 Visual: 0 4 Facial Palsy: 0 5 Motor Arm Right (UN = amputation/fusion): 0 5 Motor Arm Left: 2 6 Motor Leg Right: 0 6 Motor Leg Left: 3 7 Limb ataxia (Only + if out of proportion): 0 8 Sensory (Aphasia/stupor=0 or 1, coma=2): 1 9 Best Language: 1 10 Dysarthria (mute, coma=2, intubated=UN): 0 11 Extinction and Inattention (only scored if +): 1 Total Score: 9 MDM MDM MDM Narrative Medical decision making narrative: Initially stroke team called from triage. It was then felt that this was related to pain. Based on stating that he normally has had to ambulate on his own and his left leg is flaccid and there is significant weakness of the left upper extremity with difficulty speaking will make this a stroke team and will obtain a CTA. We will assess glucose to rule out hypoglycemia. Lab Data Attestation: I reviewed the patient's lab results. Lab results narrative: Basic metabolic panel is unremarkable except for glucose of 265 with a normal CO2 and anion gap. Labs: Laboratory Results - last 24 hr 06/07/21 06/07/21 06/07/21 13:25 13:25 13:33 PT 13.9 INR 1.1 APTT 36.1 Sodium 139 Potassium 3.8 Chloride 103 Carbon Dioxide 31.0 Anion Gap 5 BUN 12 Creatinine 1.04 Estim Creat Clear Calc 68.24 Est GFR (MDRD) Af Amer 91 Est GFR (MDRD) Non-Af 75 BUN/Creatinine Ratio 11.5 Glucose 265 H Calcium 8.6 POC Glucose 279 H Radiography Diagnostic Testing: Clinical Impression(s) from Imaging Studies Brain CT 06/07/21 13:23 IMPRESSION: No acute intracranial process identified. Chronic small vessel ischemic gliosis. Individualized dose optimization techniques were used for this CT. at 1421 Reported and signed by: Michelle Tomlinson MD N.B. : The above Results were Read Back by Michelle Tomlinson MD to Yadiel Guzman MD, and understanding confirmed on 06/07/2021 14:21:59 (ET). Electronically Signed: Michelle Tomlinson MD at 14:20 EDT , ADDENDUM: 06/07/21 1429 IMPRESSION: No acute intracranial process identified. Chronic small vessel ischemic gliosis. Individualized dose optimization techniques were used for this CT. at 1421 Reported and signed by: Michelle Tomlinson MD N.B. : The above Results were Read Back by Michelle Tomlinson MD to Yadiel Guzman MD, and understanding confirmed on 06/07/2021 14:21:59 (ET). Electronically Signed: iMchelle Tomlinson MD at 14:20 EDT , Head/Neck CTA 06/07/21 13:40 IMPRESSION: No intracranial aneurysm or large vessel occlusion. Mild plaque of the internal carotid arteries with less than 50% narrowing. There is no hemodynamically significant internal carotid artery stenosis Electronically Signed: Shai Mcclendon MD at 14:12 EDT Reading Location ID and State: [facility] / [place] , Service support , ADDENDUM: 06/07/21 1419 IMPRESSION: No intracranial aneurysm or large vessel occlusion. Mild plaque of the internal carotid arteries with less than 50% narrowing. There is no hemodynamically significant internal carotid artery stenosis N.B. : The above Results were Read Back by Shai Mcclendon MD to Dr. Yadiel Guzman MD, and understanding confirmed on 06/07/2021 14:12:51 (ET). Electronically Signed: Shai Mcclendon MD at 14:12 EDT , Chest X-Ray 06/07/21 13:45 IMPRESSION: Cardiac enlargement. No focal infiltrate. Electronically Signed: Shai Mcclendon MD at 14:18 EDT , Single view chest x-ray was independently reviewed and interpreted by me at 1357. Chronic changes. Patient is rotated. Hardware noted secondary to prior rib fractures. Pacemaker noted. Suboptimal quality of film. No obvious infiltrate or congestive heart failure. Stroke Documentation Questions Stroke Team Activated: Yes Reviewed Inclusion/Exclusion criteria: No (Patient outside window for tPA) Was Patient considered for Endovascular Intervention?: No-CTA negative, determined not to be an endovascular candidate IV Alteplase (t-PA) Administered: No No contraindications for IV Alteplase (t-PA) administration.: No Alteplase (t-PA) risks, benefits, alternative discussed: No Discharge Plan Dx/Rx/DC Orders Clinical Impression: Dysarthria due to acute stroke, Acute left hemiparesis, DM type 2 (diabetes mellitus, type 2) Disposition Disposition: Acute Care [facility]
[2021-06-07 13:40] LABS: Bedside Glucose 279 mg/dL (74-106)
--- NOTE | 2021-06-07 13:40 | CT_ITS ---
We are attempting to reach an attending provider to discuss findings. An addendum with communication details will be sent when the communication is complete. STUDY: CTA HEAD AND NECK WITH CONTRAST REASON FOR EXAM: Male, 70 years old. Neuro deficit, acute, stroke suspected RADIATION DOSAGE (If Supplied By Facility): CTDIvol = ( 26.73 ) mGy, DLP = ( 776.63 ) mGycm TECHNIQUE: CT angiography was performed with a multi-detector CT scanner. Data acquisition was obtained from the skull base through the vertex following intravenous administration of 100mL Isovue-370. MIP images were reconstructed from the axial data set. Post-processing of the angiographic images was performed, with multiplanar reformation and 3D reconstruction. Individualized dose optimization techniques were used for this CT. COMPARISON: August 10, 2020 FINDINGS: Normal bilateral petrous carotid arteries. Normal right cavernous carotid artery with a normal supraclinoid bifurcation. Normal left cavernous carotid artery with a normal supraclinoid bifurcation. Normal right A1 segments of the anterior cerebral artery. Normal left A1 segments of the anterior cerebral artery. Normal intact anterior communicating artery (ACOM). Normal bilateral A2 segments of the anterior cerebral arteries. Normal right M1 and M2 segments of the middle cerebral arteries, with a normal M1 bifurcation. Normal left M1 and M2 segments of the middle cerebral arteries, with a normal M1 bifurcation. There is non-visualization of the right posterior communicating artery (PCOM). There is non-visualization of the left posterior communicating artery (PCOM). Normal bilateral vertebral arteries. Normal basilar artery with a normal basilar bifurcation. The visualized bilateral superior cerebellar (SCA) arteries are normal. Normal bilateral P1, P2 and visualized P3 segments of the posterior cerebral arteries. There is no demonstrated aneurysm of the [place]. There is no demonstrated abnormality of the visualized brain. AORTIC ARCH: There is atherosclerotic calcific plaque formation of the aortic arch and great vessels arising from the aortic arch, without a hemodynamically significant stenosis. There is a normal origin of the brachiocephalic, left common carotid, and left subclavian arteries. RIGHT CAROTID ARTERIES: Normal right common carotid artery (CCA). There is mild atherosclerotic plaque formation with minimal narrowing of the right carotid bulb. Normal origin of the right internal carotid (ICA) artery without a hemodynamically significant stenosis. Normal visualized cervical portion of the right internal carotid artery. Normal origin of the right external carotid artery (ECA). LEFT CAROTID ARTERIES: Normal left common carotid artery (CCA). There is mild atherosclerotic plaque formation with minimal narrowing of the left carotid bulb. There is mild atherosclerotic plaque formation of the origin of the left internal carotid artery with less than 50% cross sectional diameter stenosis. Normal visualized cervical portion of the left internal carotid artery. Normal origin of the left external carotid artery (ECA). VERTEBRAL ARTERIES: Normal bilateral vertebral arteries. CT/STROKE CTA Head AND Neck W/Con IMPRESSION: No intracranial aneurysm or large vessel occlusion. Mild plaque of the internal carotid arteries with less than 50% narrowing. There is no hemodynamically significant internal carotid artery stenosis Electronically Signed: Shai Mcclendon MD at 14:12 EDT Reading Location ID and State: [facility] / [place] , Service support ,
--- NOTE | 2021-06-07 13:45 | RAD_ITS ---
STUDY: X-RAY CHEST REASON FOR EXAM: Male, 70 years old. Neuro deficit, acute, stroke suspected TECHNIQUE: Single frontal view of the chest. COMPARISON: March 24, 2021. FINDINGS: Dual-chamber pacemaker device on the left is stable. There are monitoring devices. The lungs are clear and expanded. There is no demonstrated pleural abnormality. Sternal cerclage wires are present from a prior sternotomy. There is cardiac enlargement. Normal mediastinum and cata. Normal visualized pulmonary arteries. Normal visualized aortic arch and descending thoracic aorta. Normal visualized thoracic spine. There are multiple left rib fractures status post ORIF with fixation plates and screws. There is no demonstrated abnormality of the visualized soft tissue structures of the upper abdomen. RAD/Chest 1 View IMPRESSION: Cardiac enlargement. No focal infiltrate. Electronically Signed: Shai Mcclendon MD at 14:18 EDT ,
[2021-06-07 13:47] LABS: BUN 12 mg/dL (7-18); BUN/Creat Ratio 11.5 RATIO (10-20); Calcium,Total 8.6 mg/dL (8.5-10.1); Chloride 103 mmol/L (98-107); Creatinine, Serum 1.04 mg/dL (0.70-1.30); EST Glomerular Filtration Rate 75 mL/min (>60); Est Glom Filt Rate - Afr Amer 91 mL/min (>60); Estimated Creatinine Clearance 68.24 ml/min; Glucose 265 mg/dL (74-106); Potassium 3.8 mmol/L (3.5-5.1); Sodium Level 139 mmol/L (136-145)
[2021-06-07 13:48] LABS: Anion Gap 5 (5-15)
[2021-06-07 14:29] LABS: International Normalized Ratio 1.1; Prothrombin Time (Protime)PT. 13.9 SECONDS (11.7-14.9)
[2021-06-07 14:30] LABS: Partial Thromboplast Time 36.1 Seconds (24.1-36.2)
--- NOTE | 2021-06-07 15:28 | HP.PCM.HOS_ITS ---
Documented by User: Candice Stafford NP, [employer]-C 06/07/21 15:48 HPI - General General Date of Admission: 06/07/21 HPI Narrative GIOVANNY LEONARDO, is a 70 M who presents to the emergency room due to left-sided weakness and speech changes. Patient having difficulty talking in the emergency room. at bedside provides HPI. reports patient went to bed early last night around 5 PM. He slept in this morning and upon awakening, was noted to have left-sided weakness and speech changes. states he did ambulate to the kitchen and was able to eat breakfast. Due to progressive symptoms, his called the squad. Patient does have a history of CVA with recurrent aphasia. Due to pacemaker he is unable to have MRI. He denies vision changes, difficulty swallowing. His asked him to write his name on a piece of paper and he was able to lift left arm to hold paper pad and write his name. Previously during exam he was not able to lift left arm off of bed. His denies other recent symptoms or complaints. He has a past medical history of COPD with chronic hypoxic respiratory failure, chronic anemia, chronic heart failure with preserved ejection fraction, history of CVA with recurrent aphasia, CAD with history of CABG and stents, type 2 diabetes mellitus, hypertension, hyperlipidemia, EKATERINA, BPH, history of seizure disorder, anxiety, depression. [facility] Medical History Abnormal EKG Anemia Atherosclerotic heart disease [place] coronary artery w/angina pectoris BiPAP (biphasic positive airway pressure) dependence Chest pain Chronic respiratory failure Congestive heart failure (CHF) Diabetes Essential (primary) hypertension Former smoker History of fractured rib Hyperlipidemia Myocardial infarct Obesity On home oxygen therapy EKATERINA (obstructive sleep apnea) Pacemaker Pacemaker battery depletion Pulmonary embolism Sick sinus syndrome Stroke/cerebrovascular accident Wears hearing aid in both ears Home Medications Humulin R U-500 (Conc) Kwikpen 100 unit SQ BREAKFAST 06/11/18 [History Last Taken 06/06/21] Humulin R U-500 (Conc) Kwikpen 100 unit SQ DINNER 06/11/18 [History Last Taken 06/06/21] aspirin 81 mg PO DAILY@0800 06/11/18 [History Last Taken 06/07/21] atorvastatin 80 mg PO QHS 06/11/18 [History Last Taken 06/06/21] cholecalciferol (vitamin D3) [Vitamin D3] 3,000 units PO DAILY 06/11/18 [History Last Taken 06/06/21] escitalopram oxalate 10 mg PO DAILY 06/11/18 [History Last Taken 06/07/21] finasteride 5 mg PO DAILY 06/11/18 [History Last Taken 06/07/21] nitroglycerin 0.4 mg SUBLINGUAL Q5M PRN #30 tablet 07/22/18 [Rx Last Taken 01/17/20] pantoprazole 40 mg PO BID 05/18/20 [History Last Taken 06/07/21] acetaminophen [Tylenol] 325 mg PO Q6H PRN PRN 06/22/20 [History Last Taken 06/07/21] carvedilol 25 mg PO BID 06/22/20 [History Last Taken 06/07/21] furosemide 40 mg PO DAILY 06/22/20 [History Last Taken 06/07/21] multivitamin 1 tab PO DAILY 06/22/20 [History Last Taken 06/07/21] potassium chloride [Klor-Con M20] 20 meq PO DAILY 06/22/20 [History Last Taken 06/07/21] ranolazine 500 mg PO BID 06/22/20 [History Last Taken 06/07/21] ferrous sulfate 325 mg PO BID #60 tab 06/23/20 [Rx Last Taken 06/07/21] tamsulosin 0.8 mg PO QHS 08/10/20 [History Last Taken 06/06/21] clopidogrel 75 mg tablet 75 mg PO DAILY 01/07/21 [History Last Taken 06/07/21] semaglutide (weight loss) 0.5 mg SUBCUT QWEEK 02/24/21 [History Last Taken Unknown] Allergy/AdvReac Type Severity Reaction Status Date / Time ezetimibe Allergy Unknown Verified 06/07/21 13:24 Fish Containing Products Allergy Unknown Verified 06/07/21 13:24 glyburide Allergy Unknown Verified 06/07/21 13:24 isosorbide Allergy PT UNSURE Verified 06/07/21 13:24 OF REACTION lisinopril Allergy Unknown Verified 06/07/21 13:24 metformin Allergy Nausea Verified 06/07/21 13:24 metoprolol Allergy Unknown Verified 06/07/21 13:24 simvastatin Allergy Unknown Verified 06/07/21 13:24 Family History Father No problems noted. other (Denies maternal and paternal cardiac history.) Surgical History H/O coronary artery bypass surgery History of cholecystectomy History of coronary artery stent placement History of knee replacement procedure of left knee History of permanent cardiac pacemaker placement (01/14/21) Social History household members: spouse Smoking Status: Former smoker substance use type: does not use ROS Constitutional Constitutional: Denies change in weight, chills, fatigue or fever(s) Cardiovascular Cardiovascular: Denies chest pain, edema, lightheadedness, palpitations or syncope Respiratory/Chest Respiratory/Chest: Denies cough, dyspnea, productive cough, shortness of breath at rest, shortness of breath with exertion or wheezing Gastrointestinal Gastrointestinal: Denies abdominal pain, constipation, diarrhea, nausea or vomiting Genitourinary Genitourinary: Denies burning urination, difficulty urinating, dysuria, hematuria, urinary frequency, urinary incontinence or urinary urgency Musculoskeletal Musculoskeletal: Denies back pain, joint pain or muscle weakness Integumentary Integumentary: Denies erythema, lesions, rash or wounds Neurologic Neurologic: Reports abnormal speech, focal weakness and other Details: Left- sided weakness ; Denies confusion, dizziness, numbness, paresthesias, seizure- like activity or syncope Psychiatric Psychiatric: Denies anxiety or depression Hematologic/Lymphatic Hematologic/Lymphatic: Denies anemia, easy bleeding or easy bruising Allergic/Immunologic Allergic/Immunologic: Denies hives or asthma Vital Signs Vital Signs Vital Signs: 06/07/21 13:20 06/07/21 13:30 06/07/21 13:31 Temperature 98.7 F Temperature Source Oral Pulse Rate 67 65 Respiratory Rate 16 18 Blood Pressure 146/83 H 165/88 H Blood Pressure Mean 104 113 Blood Pressure Source Blood Pressure Position Blood Pressure Location Pulse Ox 98 97 97 Oxygen Delivery Method Nasal Cannula Nasal Cannula Nasal Cannula Oxygen Flow Rate (L/min) 2 2 2 06/07/21 14:00 06/07/21 14:36 06/07/21 14:39 Temperature 97.5 F L Temperature Source Oral Pulse Rate 64 65 61 Respiratory Rate 16 18 18 Blood Pressure 158/90 H 159/85 H 159/87 H Blood Pressure Mean 112 109 111 Blood Pressure Source Blood Pressure Position Blood Pressure Location Pulse Ox 98 97 Oxygen Delivery Method Nasal Cannula Nasal Cannula Nasal Cannula Oxygen Flow Rate (L/min) 2 2 2 06/07/21 14:46 06/07/21 15:15 Temperature 97.5 F L 97.6 F L Temperature Source Oral Oral Pulse Rate 61 65 Respiratory Rate 18 21 H Blood Pressure 159/87 H 160/95 H Blood Pressure Mean 111 116 Blood Pressure Source Monitor Blood Pressure Position Semi-Fowlers Blood Pressure Location Left Arm Pulse Ox 97 99 Oxygen Delivery Method Nasal Cannula Nasal Cannula Oxygen Flow Rate (L/min) 2 2 Weight Weight: 237 lb 14.06 oz Body Mass Index (BMI) 34.1 Physical Exam Const alert and oriented x3 Constitutional Narrative: Speech difficulty Orientation / Consciousness: awake, oriented to person, oriented to place and oriented to time HEENT normocephalic and moist oral mucous membranes Eyes PERRL, EOMs intact bilaterally and conjunctivae normal Neck no lymphadenopathy Resp normal respiratory effort and clear to auscultation bilaterally Cardio regular rate, regular rhythm and no murmurs Peripheral Pulses: pulses 2+ throughout GI normal to inspection, nondistended, normoactive bowel sounds, non-tender and non-distended Extremity normal to inspection Skin no rashes or lesions noted Lesions: no lesions Rashes: no rashes Trauma: no lacerations or abrasions Neuro CN's II-XII intact bilaterally, no sensory deficits noted and deep tendon reflexes 2+ bilaterally Neuro Narrative: Aphasic, left lower extremity flaccid, left upper extremity weakness. No sensory deficits. Psych mental status grossly normal and affect normal Results Lab / Micro Data Result Diagrams: 06/07/21 13:25 06/07/21 13:25 Labs: Laboratory Results - last 24 hr 06/07/21 13:25: PT 13.9, INR 1.1, APTT 36.1 06/07/21 13:25: Sodium 139, Potassium 3.8, Chloride 103, Carbon Dioxide 31.0, Anion Gap 5, BUN 12, Creatinine 1.04, Estim Creat Clear Calc 68.24, Est GFR (MDRD) Af Amer 91, Est GFR (MDRD) Non-Af 75, BUN/Creatinine Ratio 11.5, Glucose 265 H, Calcium 8.6 06/07/21 13:33: POC Glucose 279 H Radiology Impression Brain CT 06/07/21 13:23 IMPRESSION: No acute intracranial process identified. Chronic small vessel ischemic gliosis. Individualized dose optimization techniques were used for this CT. at 1421 Reported and signed by: Michelle Tomlinson MD N.B. : The above Results were Read Back by Michelle Tomlinson MD to Yadiel Gumzan MD, and understanding confirmed on 06/07/2021 14:21:59 (ET). Electronically Signed: Michelle Tomlinson MD at 14:20 EDT , ADDENDUM: 06/07/21 1429 IMPRESSION: No acute intracranial process identified. Chronic small vessel ischemic gliosis. Individualized dose optimization techniques were used for this CT. at 1421 Reported and signed by: Michelle Tomlinson MD N.B. : The above Results were Read Back by Michelle Tomlinson MD to Yadiel Guzman MD, and understanding confirmed on 06/07/2021 14:21:59 (ET). Electronically Signed: Michelle Tomlinson MD at 14:20 EDT , Head/Neck CTA 06/07/21 13:40 IMPRESSION: No intracranial aneurysm or large vessel occlusion. Mild plaque of the internal carotid arteries with less than 50% narrowing. There is no hemodynamically significant internal carotid artery stenosis Electronically Signed: Shai Mcclendon MD at 14:12 EDT Reading Location ID and State: [facility] / [place] , Service support , ADDENDUM: 06/07/21 1419 IMPRESSION: No intracranial aneurysm or large vessel occlusion. Mild plaque of the internal carotid arteries with less than 50% narrowing. There is no hemodynamically significant internal carotid artery stenosis N.B. : The above Results were Read Back by Shai Mcclendon MD to Dr. Yadiel Guzman MD, and understanding confirmed on 06/07/2021 14:12:51 (ET). Electronically Signed: Shai Mcclendon MD at 14:12 EDT , Chest X-Ray 06/07/21 13:45 IMPRESSION: Cardiac enlargement. No focal infiltrate. Electronically Signed: Shai Mcclendon MD at 14:18 EDT , Assessment & Plan Assessment/Plan (1) Dysarthria due to acute stroke: (2) Acute left hemiparesis: PLAN: 1. Acute CVA with speech changes and left-sided weakness- history of CVA with recurrent aphasia-Continue aspirin, statin, Plavix. Brain CT with no acute process. Unable to have MRI due to pacemaker. PT/OT/ST. Case management consult for discharge planning. Obtain echo. 2. Chronic hypoxic respiratory failure secondary to chronic COPD-states he wears oxygen as needed at home. As needed albuterol aerosol. 3. Chronic heart failure with preserved ejection fraction-continue home Lasix regimen. Prior echocardiogram demonstrates an EF of 60%. 4. Chronic anemia/Iron deficiency anemia-continue iron supplementation. CBC pending. 5. CAD with history of CABG and stents/status post pacemaker placement-continue aspirin, statin, Plavix, carvedilol, Ranexa. 6. Type 2 diabetes mellitus-continue home insulin regimen. Accu-Cheks with sliding scale insulin. 7. Hypertension-stable, continue carvedilol, Lasix. 8. Hyperlipidemia-continue high-dose statin. 9. EKATERINA-continue home BiPAP regimen. 10. BPH-continue Flomax, proscar. 11. History of seizure disorder? Previously on Keppra. No longer taking. 12. Anxiety/depression-continue Lexapro. 13. GERD-continue PPI. DVT prophylaxis- Lovenox sc This patient was seen by Candice Stafford NP-C under the supervision of Dr. Pugh. Time spent examining patient, reviewing data and subsequent management of care: 17 minutes Documented by User: Dr. Yassine Pugh DO 06/07/21 17:18 HPI - General General Date of Admission: 06/07/21 [facility] Medical History Abnormal EKG Anemia Atherosclerotic heart disease [place] coronary artery w/angina pectoris BiPAP (biphasic positive airway pressure) dependence Chest pain Chronic respiratory failure Congestive heart failure (CHF) Diabetes Essential (primary) hypertension Former smoker History of fractured rib Hyperlipidemia Myocardial infarct Obesity On home oxygen therapy EKATERINA (obstructive sleep apnea) Pacemaker Pacemaker battery depletion Pulmonary embolism Sick sinus syndrome Stroke/cerebrovascular accident Wears hearing aid in both ears Home Medications Humulin R U-500 (Conc) Kwikpen 100 unit SQ BREAKFAST 06/11/18 [History Last Take n 06/06/21] Humulin R U-500 (Conc) Kwikpen 100 unit SQ DINNER 06/11/18 [History Last Taken 06/06/21] aspirin 81 mg PO DAILY@0800 06/11/18 [History Last Taken 06/07/21] atorvastatin 80 mg PO QHS 06/11/18 [History Last Taken 06/06/21] cholecalciferol (vitamin D3) [Vitamin D3] 3,000 units PO DAILY 06/11/18 [History Last Taken 06/06/21] escitalopram oxalate 10 mg PO DAILY 06/11/18 [History Last Taken 06/07/21] finasteride 5 mg PO DAILY 06/11/18 [History Last Taken 06/07/21] nitroglycerin 0.4 mg SUBLINGUAL Q5M PRN #30 tablet 07/22/18 [Rx Last Taken 01/17/20] pantoprazole 40 mg PO BID 05/18/20 [History Last Taken 06/07/21] acetaminophen [Tylenol] 325 mg PO Q6H PRN PRN 06/22/20 [History Last Taken 06/07/21] carvedilol 25 mg PO BID 06/22/20 [History Last Taken 06/07/21] furosemide 40 mg PO DAILY 06/22/20 [History Last Taken 06/07/21] multivitamin 1 tab PO DAILY 06/22/20 [History Last Taken 06/07/21] potassium chloride [Klor-Con M20] 20 meq PO DAILY 06/22/20 [History Last Taken 06/07/21] ranolazine 500 mg PO BID 06/22/20 [History Last Taken 06/07/21] ferrous sulfate 325 mg PO BID #60 tab 06/23/20 [Rx Last Taken 06/07/21] tamsulosin 0.8 mg PO QHS 08/10/20 [History Last Taken 06/06/21] clopidogrel 75 mg tablet 75 mg PO DAILY 01/07/21 [History Last Taken 06/07/21] semaglutide (weight loss) 0.5 mg SUBCUT QWEEK 02/24/21 [History Last Taken Unknown] Allergy/AdvReac Type Severity Reaction Status Date / Time ezetimibe Allergy Unknown Verified 06/07/21 13:24 Fish Containing Products Allergy Unknown Verified 06/07/21 13:24 glyburide Allergy Unknown Verified 06/07/21 13:24 isosorbide Allergy PT UNSURE Verified 06/07/21 13:24 OF REACTION lisinopril Allergy Unknown Verified 06/07/21 13:24 metformin Allergy Nausea Verified 06/07/21 13:24 metoprolol Allergy Unknown Verified 06/07/21 13:24 simvastatin Allergy Unknown Verified 06/07/21 13:24 Family History Father No problems noted. Surgical History H/O coronary artery bypass surgery History of cholecystectomy History of coronary artery stent placement History of knee replacement procedure of left knee History of permanent cardiac pacemaker placement (01/14/21) Social History household members: spouse Smoking Status: Former smoker substance use type: does not use Results Lab / Micro Data Result Diagrams: 06/07/21 13:25 06/07/21 13:25 Charges/Coding Addendum Addendum: Patient was seen and examined independently of Candice Stafford, he came to the ER today after being brought in by his due to left-sided weakness and inability to ambulate, patient also had speech difficulties. The patient's last time he was seen well was 5 PM yesterday afternoon when he went to bed, he did not awaken until this morning, his stated that he had speech difficulties this morning but ate breakfast, he also had difficulties walking this morning. On examination he appeared his stated age. Vital signs as documented. Skin warm and dry and without overt rashes. Neck without JVD, neck was supple, trachea midline, thyroid was normal. Lungs clear bilaterally, normal air movement was noted. Heart exam notable for regular rhythm, normal sounds and absence of murmurs, rubs or gallops. Abdomen unremarkable and without evidence of organomegaly, masses, or abdominal aortic enlargement. Bowel sounds are present, abdomen is not distended. Extremities nonedematous, no cyanosis was noted, no clubbing was noted. Neuro: Cranial nerves II through XII are grossly intact, patient has left lower extremity weakness and some left upper extremity weakness, he does follow simple commands, his speech is garbled and he has evidence of dysarthria., sensation to light touch and pinprick intact Psych: Patient is alert and oriented x3, he does not appear anxious or depressed, he does not appear agitated. Patient underwent a CT of the brain which did not show any acute pathology-there was noted to be chronic small vessel ischemic gliosis. CTA of the head and neck showed mild plaque of the internal carotid arteries with less than 50% narrowing. No intracranial aneurysm or large vessel occlusion was noted on the CTA of the head. Impression: #1 left hemiparesis-etiology unclear, possible acute CVA-patient has a pacemaker and cannot undergo an MRI, patient will be admitted to PCU, he will be seen by PT, OT, and speech therapy, at the time of this dictation, he has passed a swallowing eval and he will be kept on his home medications which include aspirin and Plavix. Patient is also on atorvastatin. Echocardiogram will not be ordered due to the fact he has had a bubble study performed in the past in April 2020. #2 acute dysarthria-etiology unclear, possibly secondary to stroke-again patient will be seen by speech therapy, he will remain on aspirin, Plavix, and atorvastatin. #3 type 2 diabetes-patient is on a large amount of U5 100 insulin at bedtime, I will hold this for now and patient will receive sliding scale insulin based on blood sugars by fingerstick. #4 coronary artery disease-patient will remain on his present medications #5 obstructive sleep apnea-patient has his own CPAP machine, it will be used during his hospitalization #6 essential hypertension-patient will remain on his present medications #7 hyperlipidemia-patient will remain on Lipitor I have reviewed Candice Stafford's history and physical including her medical assessment and plan of care and endorse it with the above additions. Total clinical time spent by myself addressing the patient's medical issues, reviewing the patient's medical data, and communicating with the patient's care team-53 minutes Visit Charges Inpatient E&M: [id number] Init Hosp L3
[2021-06-07] MEDS: 0.9% Normal Saline 1,000 ML 75 ML IV (17:05)
[2021-06-07] MEDS: Morphine 2 MG/ML Syringe IV ×2 (17:05→22:20)
[2021-06-07] MEDS: 0.9% Saline Lock 10 ML Syringe IV ×2 (17:05→22:25)
[2021-06-07] MEDS: Insulin Lispro 100 UNIT/ML INSULN.PEN SC ×2 (17:11→20:49)
[2021-06-07] MEDS: Ferrous Sulfate 325 MG Tablet PO (17:12)
[2021-06-07 17:21] LABS: Bedside Glucose 209 mg/dL (74-106)
[2021-06-07] MEDS: Heparin Injection (Vial) 5,000 UNIT/ML VIAL 5000 UNIT SC (20:47)
[2021-06-07] MEDS: Tamsulosin HCl 0.4 MG Capsule 0.8 MG PO (20:47)
[2021-06-07] MEDS: Carvedilol 25 MG Tablet PO (20:47)
[2021-06-07] MEDS: Ranolazine 500 MG Tablet PO (20:48)
[2021-06-07] MEDS: Atorvastatin Calcium 80 MG Tablet PO (20:48)
[2021-06-07] MEDS: Pantoprazole Sodium 40 MG Tablet PO (20:49)
--- NOTE | 2021-06-07 20:59 | NURSING ---
patient requested medications early to get cpap on for bed
[2021-06-07 21:05] LABS: Bedside Glucose 266 mg/dL (74-106)
[2021-06-07 21:16] LABS: Absolute Lymphocyte Count 0.96 X10^3/uL (0.83-4.51); Absolute Neutrophil Count 3.5 X10^3/uL (2.0-7.7); Basophil# 0.02 X10^3/uL; Basophil% 0.4 % (0-1); Eosinophil# 0.13 X10^3/uL; Eosinophils% 2.7 % (0-5); Hematocrit 38.6 % (40-54); Hemoglobin 12.9 g/dL (13.0-16.5); Lymphocyte # 0.96 X10^3/ul (0.83-4.51); Lymphocyte % 19.6 % (19-41); Mean Corp Hgb Conc 33.4 g/dL (32-36); Mean Corpuscular Hgb 31.8 pg (27.0-32.0); Mean Corpuscular Volume 95.1 fL (80-94); Mean Platelet Vol. 10.6 fl (6.2-12.0); Monocyte# 0.28 X10^3/uL; Monocyte% 5.7 % (0-10); NRBC Flagged by Analyzer 0 % (0-5); Neutrophil # 3.49 X10^3/uL (2.7-7.7); Neutrophil % 71.2 % (47-70); Platelet Count 153 K/mm3 (150-450); RBC Distribution Width CV 15.3 % (11.6-14.6); RBC Distribution Width SD 52.4 fl (35.1-43.9); Red Blood Count 4.06 M/mm3 (4.6-6.2); White Blood Count 4.9 K/mm3 (4.4-11.0)
[2021-06-08] VITALS (7 sets, daily range): BP systolic 116–130; BP diastolic 55–70; PULSE 60–66; RESP 18; TEMP 36.4–36.7; O2SAT 92–98; BMI 34.1
[2021-06-08] MEDS: 0.9% Normal Saline 1,000 ML 75 ML IV (06:36)
[2021-06-08] MEDS: Insulin Lispro 100 UNIT/ML INSULN.PEN SC ×2 (07:01→11:21)
[2021-06-08 07:10] LABS: Bedside Glucose 236 mg/dL (74-106)
[2021-06-08] MEDS: Carvedilol 25 MG Tablet PO (09:02)
[2021-06-08] MEDS: Furosemide 40 MG Tablet PO (09:02)
[2021-06-08] MEDS: Aspirin E.C. 81 MG Tablet PO (09:02)
[2021-06-08] MEDS: Acetaminophen 325 MG Tablet PO (09:02)
[2021-06-08] MEDS: Ranolazine 500 MG Tablet PO (09:02)
[2021-06-08] MEDS: Escitalopram Oxalate 10 MG Tablet PO (09:02)
[2021-06-08] MEDS: Ferrous Sulfate 325 MG Tablet PO (09:02)
[2021-06-08] MEDS: Clopidogrel Bisulfate 75 MG Tablet PO (09:02)
[2021-06-08] MEDS: Pantoprazole Sodium 40 MG Tablet PO (09:02)
[2021-06-08] MEDS: Potassium Chloride Oral Tablet 20 MEQ PO (09:02)
[2021-06-08] MEDS: Heparin Injection (Vial) 5,000 UNIT/ML VIAL 5000 UNIT SC (09:03)
[2021-06-08] MEDS: Finasteride 5 MG Tablet PO (10:23)
[2021-06-08 11:25] LABS: Bedside Glucose 377 mg/dL (74-106)
--- NOTE | 2021-06-08 12:29 | PCM.DC.SUM ---
Documented by User: Candice Stafford NP, CHILD CARE LEAD TEACHER-C 06/08/21 13:32 Providers Date of Admission: 06/07/21 Date of Discharge: 06/08/21 Primary Care Physician: [facility] Reason For Visit: DSYARTHRIA Diagnosis Discharge Diagnosis (1) Dysarthria due to acute stroke: Status: Acute Code(s): I63.9 - Cerebral infarction, unspecified; R47.1 - Dysarthria and anarthria (2) Acute left hemiparesis: Status: Acute Code(s): G81.94 - Hemiplegia, unspecified affecting left nondominant side Medications at Discharge Home Medications Humulin R U-500 (Conc) Kwikpen 100 unit SQ BREAKFAST 06/11/18 Humulin R U-500 (Conc) Kwikpen 100 unit SQ DINNER 06/11/18 aspirin 81 mg PO DAILY@0800 06/11/18 atorvastatin 80 mg PO QHS 06/11/18 cholecalciferol (vitamin D3) [Vitamin D3] 3,000 units PO DAILY 06/11/18 escitalopram oxalate 10 mg PO DAILY 06/11/18 finasteride 5 mg PO DAILY 06/11/18 nitroglycerin 0.4 mg SUBLINGUAL Q5M PRN #30 tablet 07/22/18 pantoprazole 40 mg PO BID 05/18/20 acetaminophen [Tylenol] 325 mg PO Q6H PRN PRN 06/22/20 carvedilol 25 mg PO BID 06/22/20 furosemide 40 mg PO DAILY 06/22/20 multivitamin 1 tab PO DAILY 06/22/20 potassium chloride [Klor-Con M20] 20 meq PO DAILY 06/22/20 ranolazine 500 mg PO BID 06/22/20 ferrous sulfate 325 mg PO BID #60 tab 06/23/20 tamsulosin 0.8 mg PO QHS 08/10/20 clopidogrel 75 mg tablet 75 mg PO DAILY 01/07/21 semaglutide (weight loss) 0.5 mg SUBCUT QWEEK 02/24/21 Hospital Course Operations None Procedures None Summary of Care Provided Hospital Course: Patient is a 70-year-old male admitted 06/07/2021 due to stroke like symptoms. 1. 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 Brain CT with no acute process. Unable to have MRI due to pacemaker. Patient has had several neuro consults in the past during admission with similar episodes and negative work-up. He is on dual antiplatelet therapy and statin at baseline. Patient declined SNF. Of note, patient's exam inconsistent during admission. He initially stated he was unable to lift left arm off of bed however he was handed a notebook by his and quickly lifted his left arm and held notebook. Nursing reports exam was similar during admission, at times would not cooperate with exam however later moving all extremities without difficulty. Follow-up with PCP and neurology at discharge. 2. Chronic hypoxic respiratory failure secondary to chronic COPD-states he wears oxygen as needed at home. As needed albuterol aerosol. 3. Chronic heart failure with preserved ejection fraction-continue home Lasix regimen. Prior echocardiogram demonstrates an EF of 60%. 4. Chronic anemia/Iron deficiency anemia-continue iron supplementation. 5. CAD with history of CABG and stents/status post pacemaker placement-continue aspirin, statin, Plavix, carvedilol, Ranexa. 6. Type 2 diabetes mellitus-continue home insulin regimen. 7. Hypertension-stable, continue carvedilol, Lasix. 8. Hyperlipidemia-continue high-dose statin. 9. EKATERINA-continue home BiPAP regimen. 10. BPH-continue Flomax, proscar. 11. History of seizure disorder? Previously on Keppra. No longer taking. 12. Anxiety/depression-continue Lexapro. 13. GERD-continue PPI. Physical Exam Const alert and oriented x3 Constitutional Narrative: Speech difficulty-baseline Orientation / Consciousness: awake, oriented to person, oriented to place and oriented to time HEENT normocephalic and moist oral mucous membranes Eyes PERRL, EOMs intact bilaterally and conjunctivae normal Neck no lymphadenopathy Resp normal respiratory effort and clear to auscultation bilaterally Cardio regular rate, regular rhythm and no murmurs Peripheral Pulses: pulses 2+ throughout GI normal to inspection, nondistended, normoactive bowel sounds, non-tender and non-distended Extremity normal to inspection Skin no rashes or lesions noted Lesions: no lesions Rashes: no rashes Trauma: no lacerations or abrasions Neuro CN's II-XII intact bilaterally, no sensory deficits noted and deep tendon reflexes 2+ bilaterally Neuro Narrative: Aphasic intermittently at baseline, moving all extremities. No sensory deficits. Psych mental status grossly normal and affect normal Patient seen and examined prior to discharge. Physical assessment as noted above. Patient is stable for discharge with follow up recommendations as noted above. This patient was seen by KELLY Dyson under the supervision of Dr. Galo. Weight / BMI Weight Weight: 237 lb 14.06 oz Body Mass Index (BMI) 34.1 ABG / Lab / Microbiology Data Result Diagrams: 06/07/21 13:25 06/07/21 13:25 Laboratory: Laboratory Results - last 24 hr 06/07/21 13:25: WBC 4.9, RBC 4.06 L, Hgb 12.9 L, Hct 38.6 L, MCV 95.1 H, MCH 31.8, MCHC 33.4, RDW Std Deviation 52.4 H, RDW Coeff of Cinda 15.3 H, Plt Count 153, MPV 10.6, Immature Gran % (Auto) 0.400, Neut % (Auto) 71.2 H, Lymph % (Auto) 19.6, [place] % (Auto) 5.7, Eos % (Auto) 2.7, Baso % (Auto) 0.4, Absolute Neuts (auto) 3.5, Absolute Lymphs (auto) 0.96, Nucleated RBC % 0 06/07/21 13:25: PT 13.9, INR 1.1, APTT 36.1 06/07/21 13:25: Sodium 139, Potassium 3.8, Chloride 103, Carbon Dioxide 31.0, Anion Gap 5, BUN 12, Creatinine 1.04, Estim Creat Clear Calc 68.24, Est GFR (MDRD) Af Amer 91, Est GFR (MDRD) Non-Af 75, BUN/Creatinine Ratio 11.5, Glucose 265 H, Calcium 8.6 06/07/21 13:33: POC Glucose 279 H 06/07/21 17:09: POC Glucose 209 H 06/07/21 20:39: POC Glucose 266 H 06/08/21 07:00: POC Glucose 236 H 06/08/21 11:19: POC Glucose 377 H Radiography Diagnostic Testing: Radiology Impression Brain CT 06/07/21 13:23 IMPRESSION: No acute intracranial process identified. Chronic small vessel ischemic gliosis. Individualized dose optimization techniques were used for this CT. at 1421 Reported and signed by: Michelle Tomlinson MD N.B. : The above Results were Read Back by Michelle Tomlinson MD to Yadiel Guzman MD, and understanding confirmed on 06/07/2021 14:21:59 (ET). Electronically Signed: Michelle Tomlinson MD at 14:20 EDT Reading Location ID and State: [employer] / [place] Tel , Service support , ADDENDUM: 06/07/21 1429 IMPRESSION: No acute intracranial process identified. Chronic small vessel ischemic gliosis. Individualized dose optimization techniques were used for this CT. at 1421 Reported and signed by: Michelle Tomlinson MD N.B. : The above Results were Read Back by Michelle Tomlinson MD to Yadiel Guzman MD, and understanding confirmed on 06/07/2021 14:21:59 (ET). Electronically Signed: Michelle Tomlinson MD at 14:20 EDT Reading Location ID and State: [employer] / [place] Tel , Service support , Head/Neck CTA 06/07/21 13:40 IMPRESSION: No intracranial aneurysm or large vessel occlusion. Mild plaque of the internal carotid arteries with less than 50% narrowing. There is no hemodynamically significant internal carotid artery stenosis Electronically Signed: Shai Mcclendon MD at 14:12 EDT Reading Location ID and State: [facility] / [place] , Service support , ADDENDUM: 06/07/21 1419 IMPRESSION: No intracranial aneurysm or large vessel occlusion. Mild plaque of the internal carotid arteries with less than 50% narrowing. There is no hemodynamically significant internal carotid artery stenosis N.B. : The above Results were Read Back by Shai Mcclendon MD to Dr. Yadiel Guzman MD, and understanding confirmed on 06/07/2021 14:12:51 (ET). Electronically Signed: Shai Mcclendon MD at 14:12 EDT Reading Location ID and State: [address] [place] [address] , Service support , Chest X-Ray 06/07/21 13:45 IMPRESSION: Cardiac enlargement. No focal infiltrate. Electronically Signed: Shai Mcclendon MD at 14:18 EDT Reading Location ID and State: [address] [place] [address] , Service support , Meaningful Use Info Meaningful Use Diagnoses (Choose all that apply): None applicable Discharge Plan Admission Admit Date/Time: 06/07/21 15:26 Primary Reason for Your Visit: stroke Attending Provider: Pancho Galo [facility] Discharge Orders/Prescriptions Prescriptions: Continued clopidogrel [Plavix] 75 mg tablet 75 mg PO DAILY RF: 0 atorvastatin 80 MG tablet 80 mg PO QHS RF: 0 aspirin 81 MG tablet 81 mg PO DAILY@0800 RF: 0 finasteride 5 MG tablet 5 mg PO DAILY RF: 0 escitalopram oxalate 10 MG tablet 10 mg PO DAILY RF: 0 cholecalciferol (vitamin D3) [Vitamin D3] 1,000 UNIT tablet 3,000 units PO DAILY RF: 0 Humulin R U-500 (Conc) Kwikpen 500 UNIT/ML insulin pen 100 unit SQ BREAKFAST RF: 0 Humulin R U-500 (Conc) Kwikpen 500 UNIT/ML insulin pen 100 unit SQ DINNER RF: 0 nitroglycerin 0.4 MG tablet, sublingual 0.4 mg sublingual Q5M PRN (Reason: Chest Pain) Qty: 30 RF: 0 pantoprazole 40 MG tablet 40 mg PO BID RF: 0 carvedilol 25 MG tablet 25 mg PO BID RF: 0 multivitamin Tablet 1 tab PO DAILY RF: 0 furosemide 40 mg Tablet 40 mg PO DAILY RF: 0 potassium chloride [Klor-Con M20] 20 mEq Tablet,Er Particles/Crystals 20 meq PO DAILY RF: 0 ranolazine 500 mg Tablet Extended Release 12 Hr 500 mg PO BID RF: 0 acetaminophen [Tylenol] 325 MG tablet 325 mg PO Q6H PRN PRN (Reason: Mild pain 1-3/Temp > 100.7 F) RF: 0 ferrous sulfate 325 mg (65 mg iron) tablet 325 mg PO BID Qty: 60 RF: 0 tamsulosin 0.4 MG capsule 0.8 mg PO QHS RF: 0 semaglutide (weight loss) 0.5 mg/0.5 mL Pen Injector 0.5 mg SUBCUT QWEEK RF: 0 Referrals / Follow Up: Raf Storey MD [STAFF PHYSICIAN] - [facility] 2 Weeks [facility] [[facility] - In 1 Week Disposition Disposition (needs filled in before D/C Order can be placed): Home, Self Care Documented by User: Dr. Pancho Galo MD 06/08/21 13:38 Providers Date of Admission: 06/07/21 Reason For Visit: DSYARTHRIA Medications at Discharge Home Medications Humulin R U-500 (Conc) Kwikpen 100 unit SQ BREAKFAST 06/11/18 Humulin R U-500 (Conc) Kwikpen 100 unit SQ DINNER 06/11/18 aspirin 81 mg PO DAILY@0800 06/11/18 atorvastatin 80 mg PO QHS 06/11/18 cholecalciferol (vitamin D3) [Vitamin D3] 3,000 units PO DAILY 06/11/18 escitalopram oxalate 10 mg PO DAILY 06/11/18 finasteride 5 mg PO DAILY 06/11/18 nitroglycerin 0.4 mg SUBLINGUAL Q5M PRN #30 tablet 07/22/18 pantoprazole 40 mg PO BID 05/18/20 acetaminophen [Tylenol] 325 mg PO Q6H PRN PRN 06/22/20 carvedilol 25 mg PO BID 06/22/20 furosemide 40 mg PO DAILY 06/22/20 multivitamin 1 tab PO DAILY 06/22/20 potassium chloride [Klor-Con M20] 20 meq PO DAILY 06/22/20 ranolazine 500 mg PO BID 06/22/20 ferrous sulfate 325 mg PO BID #60 tab 06/23/20 tamsulosin 0.8 mg PO QHS 08/10/20 clopidogrel 75 mg tablet 75 mg PO DAILY 01/07/21 semaglutide (weight loss) 0.5 mg SUBCUT QWEEK 02/24/21 Hospital Course Operations None Summary of Care Provided Minutes Spent on Discharge: 40 Hospital Course: This patient was seen in conjunction with KELLY Dyson . I have independently interviewed and examined the patient and reviewed pertinent historical, laboratory, and other data. Please refer to KELLY Dyson note for details of this patient's presentation, findings, and recommendations. I have reviewed KELLY Dyson note and concur with documented findings. In brief, patient is a 70-year-old male with previous history of CVA admitted with transient subjective weakness of the left side and dysarthria. Patient was admitted to a monitored bed where acute CVA was ruled out Physical Examination: GENERAL: cooperative but dysarthric HEENT: Atraumatic; EYES; Anicteric, Normal Conjunctiva NECK; supple, normal thyroid, RESPIRATORY: Diminished to auscultation CARDIOVASCULAR: Regular S1 S2, GI: soft, normoactive bowel sounds, : No Renal angle tenderness; EXTREMITIES: No edema, no clubbing, MUSCULOSKELETAL: no muscle wasting NEURO: Awake; left-sided weakness SKIN: No Rash PSYCH; Flat affect Hospital course; as documented above Total time spent by myself and the advanced practice practitioner evaluating patient, reviewing labs, subsequent management decisions, discussion with patient as well as other providers 40 minutes ( 25 of which was spent by myself) ABG / Lab / Microbiology Data Result Diagrams: 06/07/21 13:25 06/07/21 13:25 Discharge Plan Admission Admit Date/Time: 06/07/21 15:26 Primary Reason for Your Visit: stroke Attending Provider: Pancho Galo [facility] Discharge Orders/Prescriptions Prescriptions: Continued clopidogrel [Plavix] 75 mg tablet 75 mg PO DAILY RF: 0 atorvastatin 80 MG tablet 80 mg PO QHS RF: 0 aspirin 81 MG tablet 81 mg PO DAILY@0800 RF: 0 finasteride 5 MG tablet 5 mg PO DAILY RF: 0 escitalopram oxalate 10 MG tablet 10 mg PO DAILY RF: 0 cholecalciferol (vitamin D3) [Vitamin D3] 1,000 UNIT tablet 3,000 units PO DAILY RF: 0 Humulin R U-500 (Conc) Kwikpen 500 UNIT/ML insulin pen 100 unit SQ BREAKFAST RF: 0 Humulin R U-500 (Conc) Kwikpen 500 UNIT/ML insulin pen 100 unit SQ DINNER RF: 0 nitroglycerin 0.4 MG tablet, sublingual 0.4 mg sublingual Q5M PRN (Reason: Chest Pain) Qty: 30 RF: 0 pantoprazole 40 MG tablet 40 mg PO BID RF: 0 carvedilol 25 MG tablet 25 mg PO BID RF: 0 multivitamin Tablet 1 tab PO DAILY RF: 0 furosemide 40 mg Tablet 40 mg PO DAILY RF: 0 potassium chloride [Klor-Con M20] 20 mEq Tablet,Er Particles/Crystals 20 meq PO DAILY RF: 0 ranolazine 500 mg Tablet Extended Release 12 Hr 500 mg PO BID RF: 0 acetaminophen [Tylenol] 325 MG tablet 325 mg PO Q6H PRN PRN (Reason: Mild pain 1-3/Temp > 100.7 F) RF: 0 ferrous sulfate 325 mg (65 mg iron) tablet 325 mg PO BID Qty: 60 RF: 0 tamsulosin 0.4 MG capsule 0.8 mg PO QHS RF: 0 semaglutide (weight loss) 0.5 mg/0.5 mL Pen Injector 0.5 mg SUBCUT QWEEK RF: 0 Referrals / Follow Up: Raf Storey MD [STAFF PHYSICIAN] - [facility] Weeks [facility] - In 1 Week Disposition Disposition (needs filled in before D/C Order can be placed): Home, Self Care Charges/Coding Visit Charges OBSV E&M: 18415 Observation care discharge Hospital Course Operations None
--- NOTE | 2021-06-08 13:08 | CM.ED ---
Addendum entered by Sindi Nguyen 06/08/21 13:28: AYUSH received call from Carlos BERRY CM that patient walked from chair to the doorway to the catherine. Patient is refusing SNF. Plan is for patient to be discharged home. Carlos said that MD is aware of patient's ability to walk. Patient's is requesting home health and per Carlos BERRY CM, [facility]. Plan: Home with Home Health. Sindi RENEE Original Note: AYUSH Note SW was advised by KRISTI GERONIMO that patient walked 3-5 feet today. AYUSH called patient's and she was in the room with patient. stated that patient does better after his spells. AYUSH advised that patient is walking 3-5 feet and would benefit from going somewhere for rehab. Patient has been at [facility] and [facility] in the past. said I still owe money to [facility] and I am pissed off about that. stated that often patient goes home with home health. SW went to the room and met with patient and his . Patient said that at home he walks around the house and gets the mail. Patient said that he does not want to go anywhere for rehab. AYUSH provided patient and with SNF list. Discussed with patient and his that patient only walked 3 feet today. Patient said I can walk more. MD called rehab for reassessment of how far patient can walk and patient and updated. Sindi RENEE
--- NOTE | 2021-06-08 13:15 | CASEMGMT ---
KRISTI GERONIMO MEDICAL MANAGEMENT TRAINER CM to room to meet with patient and , who is at bedside, for initial transition planning/care coordination assessment. KRISTI GERONIMO introduced self and role at [facility]. Pt and voice understanding and consents to assessment at this time. Care providers, pharmacy, and demographics verified/updated at this time. While KRISTI GERONIMO in room, talking w/pt, therapy came in to work w/pt again, as pt only able to walk 3-5 ft this AM, and pt is wishing to return home. PCP: [facility] Specialists: Sees gas or water meter installer and sales donor recruitment representative @ [facility] Preferred Pharmacy[facility] fill. [facility] for long-term fill. Insurance: [place], [facility] A only Prescription Benefit: Through [facility] Living Arrangements: Pt lives w/ in one-story home w/1 step to enter. Pt independent w/ADL's. supportive and manages pt's medications and appts. Transportation: drives DME: Has the following DME: cane, walker, RTS, BSC, electric scooter, shower chair, BIPAP, O2 through [facility] @ 3l/m w/exertion and bleeds in through BIPAP, pulse ox, nebulizer, glucometer, rollator, lift chair, and medical alert button. states no need for further DME at this time. HHC/SNF: [facility], [facility], and [facility]. Pt has had [facility] in the past. Pt and wish for pt to return home and states has no concerns with going home at time of discharge. observed therapy working w/pt and states he is getting closer to being back to his baseline and she feels he will be safe @ home. Pt walked from bathroom to bed and then to hallway w/therapy. Pt states he also wishes to return home and does not want to go to a SNF. states is interested in HHC and would like [facility] again. Pt agreeable. and pt made aware HHC is unable to be set up on the weekend and advised to contact pt's PCP on Thursday to have HHC set up. states she plans to call PCP @ [facility] 1st thing on Thursday morning. She was made aware HHC can also be billed through [facility], instead of [facility], if she wishes, as this would give them more choices for HHC agencies. She voices understanding. She was provided w/[facility] contact info along w/list of other HHC agencies in pt's area. She voices understanding. Pt and deny having any other concerns or home-going needs. PLAN: Home w/. to f/u w/PCP on Thursday for HHC. Wendy ATKINSON RN CM
== END 2021-06-08 14:16 | disposition home or self-care (01) | DRG 65 ==
LOC: ED 14:36 → PCU 14:53
PROVIDERS: Admitting Provider Internal Medicine; Emergency Provider Emergency Medicine; Visit Provider Internal Medicine
DX: I63.9 Cerebral infarction, unspecified (principal); I69.354 Hemiplegia and hemiparesis following cerebral infarction affecting left non-dominant side; J96.11 Chronic respiratory failure with hypoxia; I50.32 Chronic diastolic (congestive) heart failure; E11.9 Type 2 diabetes mellitus without complications; I11.0 Hypertensive heart disease with heart failure; E78.5 Hyperlipidemia, unspecified; D50.9 Iron deficiency anemia, unspecified; G40.909 Epilepsy, unspecified, not intractable, without status epilepticus; J44.9 Chronic obstructive pulmonary disease, unspecified; Z79.4 Long term (current) use of insulin; I69.322 Dysarthria following cerebral infarction; I25.10 Atherosclerotic heart disease of native coronary artery without angina pectoris; F41.9 Anxiety disorder, unspecified; G47.33 Obstructive sleep apnea (adult) (pediatric); K21.9 Gastro-esophageal reflux disease without esophagitis; N40.0 Benign prostatic hyperplasia without lower urinary tract symptoms; F32.A Depression, unspecified; Z79.82 Long term (current) use of aspirin; Z87.891 Personal history of nicotine dependence; Z79.02 Long term (current) use of antithrombotics/antiplatelets; Z95.0 Presence of cardiac pacemaker
CPT/HCPCS: 70450; 70496; 70498; 71045; 80048; 82962; 85025; 85610; 85730; 92523; 93005; 97162; 97166; 97530; 97802; 99285; J7030; Q9967; A4216

== ENCOUNTER 2021-06-22 21:59 | Emergency (ER) | payer OTHER, SELFPAY ==
[2021-06-22 22:02] VITALS: BP 128/65; PULSE 91; RESP 16; TEMP 36.9; O2SAT 92; BMI 36.0
--- NOTE | 2021-06-22 22:24 | EKG12_ITS ---
Test Reason : CP Blood Pressure : / mmHG Vent. Rate : 060 BPM Atrial Rate : 060 BPM P-R Int : 306 ms QRS Dur : 206 ms QT Int : 540 ms P-R-T Axes : 077 -60 103 degrees QTc Int : 540 ms AV dual-paced rhythm with prolonged AV conduction Abnormal ECG Confirmed by PADILLA GUALLPA, CALI ([id number]), pictures editor NADINE FERRER ([id number]) on 06/24/2021 1:32:11 PM Referred By: DOTTIE Confirmed By:CALI CAUSEY MD
--- NOTE | 2021-06-22 22:24 | RAD_ITS ---
EXAM: XR CHEST, 1 VIEW CLINICAL INDICATION: chest pain TECHNIQUE: Frontal view of the chest. This report was created using [employer] report generation technology. COMPARISON: 06/07/2021, 03/24/2021, and 02/24/2021. FINDINGS: LUNGS AND PLEURAL SPACES: Persistent hazy increased density left lung not significantly changed since prior exams. No pneumothorax. No effusion. HEART: Stable cardiomegaly. MEDIASTINUM: Central airways and mediastinal contour are unremarkable. BONES/JOINTS: Sternal wires. Fixation plates and screws involving multiple left-sided ribs unchanged. SOFT TISSUES: Unremarkable. TUBES, LINES AND DEVICES: No change pacemaker. RAD/Chest 1 View (Portable) IMPRESSION: No acute abnormality or change. Stable cardiomegaly. Electronically Signed: Flako Denton MD at 23:06 EDT ,
[2021-06-22] MEDS: Morphine 2 MG/ML Syringe IV (22:32)
[2021-06-22] MEDS: Orphenadrine 60 MG/2 ML Ampul IV (22:33)
[2021-06-22] MEDS: Ondansetron 4 MG/2 ML Vial IV (22:33)
[2021-06-22 22:38] LABS: Absolute Lymphocyte Count 1.16 X10^3/uL (0.83-4.51); Absolute Neutrophil Count 3.1 X10^3/uL (2.0-7.7); Basophil# 0.02 X10^3/uL; Basophil% 0.4 % (0-1); Eosinophil# 0.12 X10^3/uL; Eosinophils% 2.5 % (0-5); Hematocrit 33.8 % (40-54); Hemoglobin 11.7 g/dL (13.0-16.5); Lymphocyte # 1.16 X10^3/ul (0.83-4.51); Lymphocyte % 24.1 % (19-41); Mean Corp Hgb Conc 34.6 g/dL (32-36); Mean Corpuscular Hgb 32.6 pg (27.0-32.0); Mean Corpuscular Volume 94.2 fL (80-94); Mean Platelet Vol. 10.6 fl (6.2-12.0); Monocyte# 0.41 X10^3/uL; Monocyte% 8.5 % (0-10); NRBC Flagged by Analyzer 0 % (0-5); Neutrophil # 3.08 X10^3/uL (2.7-7.7); Neutrophil % 64.1 % (47-70); Platelet Count 137 K/mm3 (150-450); RBC Distribution Width CV 15.7 % (11.6-14.6); RBC Distribution Width SD 53.9 fl (35.1-43.9); Red Blood Count 3.59 M/mm3 (4.6-6.2); White Blood Count 4.8 K/mm3 (4.4-11.0)
--- NOTE | 2021-06-22 22:44 | EDS_ITS ---
HPI History of Present Illness Chief Complaint: General Illness Narrative Narrative: Patient is a 71-year-old male with significant past medical history of CAD requiring bypass as well as pacemaker placement. He has hypertension hyperlipidemia COPD requiring chronic oxygen and diabetes. He states that a few hours prior to arrival he felt a sharp spasmy pain across his right sided lower chest moving towards the left. He denies any nausea vomiting diaphoresis or increased shortness of breath associated with this. He denies any recent trauma. He states that based on his past medical history of cardiac disease he was concerned this could be heart related and secondary to this comes into the hospital for evaluation [facility] Medical History Abnormal EKG Anemia Atherosclerotic heart disease [place] coronary artery w/angina pectoris BiPAP (biphasic positive airway pressure) dependence Chest pain Chronic respiratory failure Congestive heart failure (CHF) Diabetes DM type 2 (diabetes mellitus, type 2) Essential (primary) hypertension Former smoker History of fractured rib Hyperlipidemia Myocardial infarct Obesity On home oxygen therapy EKATERINA (obstructive sleep apnea) Pacemaker Pacemaker battery depletion Pulmonary embolism Sick sinus syndrome Stroke/cerebrovascular accident Wears hearing aid in both ears Home Medications Humulin R U-500 (Conc) Kwikpen 100 unit SQ BREAKFAST 06/11/18 [History Last Taken 06/06/21] Humulin R U-500 (Conc) Kwikpen 100 unit SQ DINNER 06/11/18 [History Last Taken 06/06/21] aspirin 81 mg PO DAILY@0800 06/11/18 [History Last Taken 06/07/21] atorvastatin 80 mg PO QHS 06/11/18 [History Last Taken 06/06/21] cholecalciferol (vitamin D3) [Vitamin D3] 3,000 units PO DAILY 06/11/18 [History Last Taken 06/06/21] escitalopram oxalate 10 mg PO DAILY 06/11/18 [History Last Taken 06/07/21] finasteride 5 mg PO DAILY 06/11/18 [History Last Taken 06/07/21] nitroglycerin 0.4 mg SUBLINGUAL Q5M PRN #30 tablet 07/22/18 [Rx Last Taken 01/17/20] pantoprazole 40 mg PO BID 05/18/20 [History Last Taken 06/07/21] acetaminophen [Tylenol] 325 mg PO Q6H PRN PRN 06/22/20 [History Last Taken 06/07/21] carvedilol 25 mg PO BID 06/22/20 [History Last Taken 06/07/21] furosemide 40 mg PO DAILY 06/22/20 [History Last Taken 06/07/21] multivitamin 1 tab PO DAILY 06/22/20 [History Last Taken 06/07/21] potassium chloride [Klor-Con M20] 20 meq PO DAILY 06/22/20 [History Last Taken 06/07/21] ranolazine 500 mg PO BID 06/22/20 [History Last Taken 06/07/21] ferrous sulfate 325 mg PO BID #60 tab 06/23/20 [Rx Last Taken 06/07/21] tamsulosin 0.8 mg PO QHS 08/10/20 [History Last Taken 06/06/21] clopidogrel 75 mg tablet 75 mg PO DAILY 01/07/21 [History Last Taken 06/07/21] semaglutide (weight loss) 0.5 mg SUBCUT QWEEK 02/24/21 [History Last Taken Unknown] Allergy/AdvReac Type Severity Reaction Status Date / Time ezetimibe Allergy Unknown Verified 06/22/21 22:10 Fish Containing Products Allergy Unknown Verified 06/22/21 22:10 glyburide Allergy Unknown Verified 06/22/21 22:10 isosorbide Allergy PT UNSURE Verified 06/22/21 22:10 OF REACTION lisinopril Allergy Unknown Verified 06/22/21 22:10 metformin Allergy Nausea Verified 06/22/21 22:10 metoprolol Allergy Unknown Verified 06/22/21 22:10 simvastatin Allergy Unknown Verified 06/22/21 22:10 Family History Father No problems noted. Surgical History H/O coronary artery bypass surgery History of cholecystectomy History of coronary artery stent placement History of knee replacement procedure of left knee History of permanent cardiac pacemaker placement (01/14/21) Social History household members: spouse Smoking Status: Former smoker substance use type: does not use ROS ROS ED Constitutional Constitutional ED: Denies chills or fever(s) ENT ENT ED: Denies sore throat Cardiovascular Cardiovascular: Reports chest pain Respiratory/Chest Respiratory/Chest: Reports dyspnea; Denies cough Gastrointestinal Gastrointestinal: Denies abdominal pain, diarrhea, nausea or vomiting Genitourinary Genitourinary ED: Denies dysuria Musculoskeletal Musculoskeletal: Reports myalgias Integumentary Denies rash Neurologic Neurologic: Denies headache(s) Hematologic/Lymphatic Hematologic/Lymphatic: Reports easy bleeding and easy bruising EXAM Physical Exam Const Vital Signs: 06/22/21 22:02 06/22/21 22:10 Temperature 98.5 F Temperature Source Temporal Pulse Rate 91 Respiratory Rate 16 Respiratory Effort Short of Breath Respiratory Pattern Normal Blood Pressure 128/65 H Blood Pressure Mean 86 Pulse Ox 92 Oxygen Delivery Method Room Air Positive well nourished and well developed General Appearance ED: well developed HEENT HEENT Narrative: No tongue or lip swelling no oral lesions no airway edema or compromise Eyes PERRL and EOMs intact bilaterally General Eye ED: Negative for scleral icterus Neck supple and no JVD Chest Wall palpation of chest normal Chest Narrative: No bony deformity or crepitance Resp Resp Narrative: Breath sounds are diminished throughout with diffuse expiratory wheeze and rhonchi in the bilateral bases consistent with his history of end- stage COPD but no signs of respiratory distress Cardio regular rate and regular rhythm Rate: other Other Details: Radial pulses are +2-4 bilaterally are equal and symmetric GI normal to inspection, nondistended, normoactive bowel sounds, non-tender, non- distended and no masses GI Narrative: No voluntary guarding or rigidity no pulsatile mass or fluid wave Auscultation: normoactive bowel sounds Palpation: soft Extremity Extremity Narrative: Trace pitting edema to the bilateral lower extremities that is equal and symmetric negative Homans' sign bilaterally Neuro oriented x3 Neuro Narrative: Patient has chronic deficits from previous CVA but no new or acute finding Sensorium / Orientation: alert Psych mental status grossly normal Skin no rashes or lesions noted General Skin Exam: Negative for jaundice MDM MDM MDM Narrative Medical decision making narrative: Patient presented to the ER with stable vitals and satting in the low 90s on oxygen consistent with his history of COPD requiring O2. His symptoms are more musculoskeletal in nature but because of his chronic medical conditions I did elect to perform basic cardiac work-up. Patient's troponin is 21 which is the exact same as it was 3 months ago in March 2021. His EKG is paced. Chest x-ray shows chronic changes without acu te infiltrate or pneumothorax. On reevaluation patient is resting comfortably. He does have mild electrolyte derangements with a slightly low potassium calcium and magnesium but I do not feel these are low enough to warrant admission. We discussed once again about possible long-term placement because of his chronic medical conditions. Patient states that he has physical therapy coming to his house on Thursday and does not want to be placed in a long-term at this time. Therefore as he does not have changes to suggest pancreatitis liver disease or cardiac event as a cause of his symptoms today I feel he is safe for discharge. Lab Data Attestation: I reviewed the patient's lab results. Labs: Laboratory Results - last 24 hr 06/22/21 06/22/21 22:05 22:05 WBC 4.8 RBC 3.59 L Hgb 11.7 L Hct 33.8 L MCV 94.2 H MCH 32.6 H MCHC 34.6 RDW Std Deviation 53.9 H RDW Coeff of Cinda 15.7 H Plt Count 137 L MPV 10.6 Immature Gran % (Auto) 0.400 Neut % (Auto) 64.1 Lymph % (Auto) 24.1 [place] % (Auto) 8.5 Eos % (Auto) 2.5 Baso % (Auto) 0.4 Absolute Neuts (auto) 3.1 Absolute Lymphs (auto) 1.16 Nucleated RBC % 0 Sodium 142 Potassium 3.2 L Chloride 105 Carbon Dioxide 30.0 Anion Gap 7 BUN 17 Creatinine 0.94 Estim Creat Clear Calc 74.42 Est GFR (MDRD) Af Amer 101 Est GFR (MDRD) Non-Af 84 BUN/Creatinine Ratio 18.0 Glucose 231 H Calcium 7.9 L Magnesium 1.5 L Total Bilirubin 0.50 Direct Bilirubin 0.10 AST 25 ALT 33 Alkaline Phosphatase 99 Troponin I High Sens 21 Total Protein 6.6 Albumin 3.2 Globulin 3.4 Lipase 90 Radiography Diagnostic Testing: Clinical Impression(s) from Imaging Studies Chest X-Ray 06/22/21 22:24 IMPRESSION: No acute abnormality or change. Stable cardiomegaly. Electronically Signed: Flako Denton MD at 23:06 EDT , 1 view chest x-ray as interpreted by the emergency medicine physician reveals chronic changes without acute infiltrate pneumothorax or pleural effusion Discharge Plan Triage Chief Complaint: General Illness ED Provider: Richy Clifford Dx/Rx/DC Orders Clinical Impression: Chest wall pain, Acute hypokalemia, Hypocalcemia Instructions: ED Hypokalemia, ED Hypocalcemia (Adult) Prescriptions: No Action clopidogrel [Plavix] 75 mg tablet 75 mg PO DAILY RF: 0 atorvastatin 80 MG tablet 80 mg PO QHS RF: 0 aspirin 81 MG tablet 81 mg PO DAILY@0800 RF: 0 finasteride 5 MG tablet 5 mg PO DAILY RF: 0 escitalopram oxalate 10 MG tablet 10 mg PO DAILY RF: 0 cholecalciferol (vitamin D3) [Vitamin D3] 1,000 UNIT tablet 3,000 units PO DAILY RF: 0 Humulin R U-500 (Conc) Kwikpen 500 UNIT/ML insulin pen 100 unit SQ BREAKFAST RF: 0 Humulin R U-500 (Conc) Kwikpen 500 UNIT/ML insulin pen 100 unit SQ DINNER RF: 0 nitroglycerin 0.4 MG tablet, sublingual 0.4 mg sublingual Q5M PRN (Reason: Chest Pain) Qty: 30 RF: 0 pantoprazole 40 MG tablet 40 mg PO BID RF: 0 carvedilol 25 MG tablet 25 mg PO BID RF: 0 multivitamin Tablet 1 tab PO DAILY RF: 0 furosemide 40 mg Tablet 40 mg PO DAILY RF: 0 potassium chloride [Klor-Con M20] 20 mEq Tablet,Er Particles/Crystals 20 meq PO DAILY RF: 0 ranolazine 500 mg Tablet Extended Release 12 Hr 500 mg PO BID RF: 0 acetaminophen [Tylenol] 325 MG tablet 325 mg PO Q6H PRN PRN (Reason: Mild pain 1-3/Temp > 100.7 F) RF: 0 ferrous sulfate 325 mg (65 mg iron) tablet 325 mg PO BID Qty: 60 RF: 0 tamsulosin 0.4 MG capsule 0.8 mg PO QHS RF: 0 semaglutide (weight loss) 0.5 mg/0.5 mL Pen Injector 0.5 mg SUBCUT QWEEK RF: 0 [facility] [Primary Care Provider] - Activity Restrictions/Additional Instructions: Please continue all of your normal medications as well as her multivitamin secondary to your electrolytes being slightly low today. Please have the electrolytes retested in 1 week to ensure they are stabilizing because if they continue to drop you may need admitted for IV supplementation. Disposition Disposition: Home, Self Care
[2021-06-22 22:56] LABS: AST(SGOT) 25 U/L (15-37); Alanine Aminotransfer ALT/SGPT 33 U/L (16-61); Albumin, Serum 3.2 g/dL (3.2-5.0); Alkaline Phosphatase 99 U/L (45-117); Anion Gap 7 (5-15); BUN 17 mg/dL (7-18); Calcium,Total 7.9 mg/dL (8.5-10.1); Chloride 105 mmol/L (98-107); Creatinine, Serum 0.94 mg/dL (0.70-1.30); EST Glomerular Filtration Rate 84 mL/min (>60); Est Glom Filt Rate - Afr Amer 101 mL/min (>60); Estimated Creatinine Clearance 74.42 ml/min; Globulin 3.4 g/dL (2.2-4.2); Glucose 231 mg/dL (74-106); Lipase 90 U/L (73-393); Magnesium 1.5 mg/dL (1.6-2.6); Potassium 3.2 mmol/L (3.5-5.1); Protein, Total 6.6 g/dL (6.4-8.2); Sodium Level 142 mmol/L (136-145); Troponin-I HS 21 pg/mL (3.0-78.0)
[2021-06-22 23:33] VITALS: BP 141/64; PULSE 60; RESP 16; O2SAT 96
== END 2021-06-22 23:36 | disposition home or self-care (01) ==
PROVIDERS: Emergency Provider Emergency Medicine; Visit Provider Emergency Medicine
DX: R07.89 Other chest pain (principal); J44.9 Chronic obstructive pulmonary disease, unspecified; I11.0 Hypertensive heart disease with heart failure; I50.9 Heart failure, unspecified; E11.9 Type 2 diabetes mellitus without complications; I25.10 Atherosclerotic heart disease of native coronary artery without angina pectoris; Z87.891 Personal history of nicotine dependence; E83.51 Hypocalcemia; E78.5 Hyperlipidemia, unspecified; E87.6 Hypokalemia; I25.2 Old myocardial infarction; Z99.81 Dependence on supplemental oxygen
CPT/HCPCS: 71045; 80048; 80076; 83690; 83735; 84484; 85025; 93005; 96374; 96375; 99285; A4216; J2405

== ENCOUNTER 2021-08-17 11:53 | Emergency (ER) | payer OTHER, SELFPAY ==
[2021-08-17] VITALS (7 sets, daily range): BP systolic 144–180; BP diastolic 68–90; PULSE 60–80; RESP 15–17; TEMP 36.2–36.8; O2SAT 95–98; BMI 35.2
--- NOTE | 2021-08-17 12:10 | RAD_ITS ---
STUDY: X-RAY CHEST REASON FOR EXAM: Male, 71 years old. Dyspnea TECHNIQUE: Single frontal view of the chest. COMPARISON: 06/22/2021 FINDINGS: There is no new focal consolidation. There are a few stable vague linear opacities within the right lower lung. There is a right-sided central venous catheter terminating within the expected region of the superior vena cava. Sternal cerclage wires and vascular clips are present from a prior sternotomy and coronary artery bypass graft procedure (CABG). There is stable cardiomegaly. Normal mediastinum and cata. Normal visualized pulmonary arteries. Normal visualized aortic arch and descending thoracic aorta. Normal visualized thoracic spine. There are several plate and screw fixation devices within the bony left hemithorax. There is a stable right clavicular deformity consistent with a healed fracture. There is no demonstrated abnormality of the visualized soft tissue structures of the upper abdomen. RAD/Chest 1 View (Portable) IMPRESSION: No acute cardiopulmonary process. Electronically Signed: Stephy Alberto MD at 13:11 EDT ,
--- NOTE | 2021-08-17 12:10 | EKG12_ITS ---
Test Reason : SOB Blood Pressure : / mmHG Vent. Rate : 062 BPM Atrial Rate : 062 BPM P-R Int : 310 ms QRS Dur : 196 ms QT Int : 506 ms P-R-T Axes : 104 -52 098 degrees QTc Int : 513 ms AV dual-paced rhythm with prolonged AV conduction Abnormal ECG Confirmed by YUNI GUALLPA, JOANNA ([id number]), editor managing director NADINE FERRER ([id number]) on 08/20/2021 9:55:38 AM Referred By: JOHN Confirmed By:JOANNA MORRISSEY MD
--- NOTE | 2021-08-17 12:20 | EDS_ITS ---
HPI History of Present Illness Chief Complaint: Shortness of Breath Narrative Narrative: 71-year-old male presenting with shortness of breath which has had for 3 days. He also states he has some chest pain which is over the left side of his lower chest. He has a chronic cough which is not productive. History of COPD for which he is on 3 L of oxygen at baseline. He reports that this morning he got up in his pulse ox was 83%. He did some breathing treatments at home which did not help. EMS was called and he received a breathing treatment on the way to the emergency room. He is currently on his baseline 3 L satting 96 to 97% he states that he gets his [facility]. He states he had his heart checked and this was not the source of the pain. Patient has not had any fevers or chills. No nausea or vomiting. Is eating and drinking normally. Is making normal urine and stool. [facility] Medical History Abnormal EKG Anemia Atherosclerotic heart disease [place] coronary artery w/angina pectoris BiPAP (biphasic positive airway pressure) dependence Chest pain Chronic respiratory failure Congestive heart failure (CHF) Diabetes DM type 2 (diabetes mellitus, type 2) Essential (primary) hypertension Former smoker History of fractured rib Hyperlipidemia Myocardial infarct Obesity On home oxygen therapy EKATERINA (obstructive sleep apnea) Pacemaker Pacemaker battery depletion Pulmonary embolism Sick sinus syndrome Stroke/cerebrovascular accident Wears hearing aid in both ears Home Medications aspirin 81 mg tablet,delayed release 81 mg PO DAILY@0800 health maintenance 06/11/18 [History Last Taken 06/07/21] atorvastatin 80 mg tablet 80 mg PO QHS cholesterol 06/11/18 [History Last Taken 06/06/21] cholecalciferol (vitamin D3) 25 mcg (1,000 unit) tablet (Vitamin D3) 3,000 units PO DAILY supplement 06/11/18 [History Last Taken 06/06/21] escitalopram oxalate 10 mg tablet 10 mg PO DAILY depression 06/11/18 [History Last Taken 06/07/21] finasteride 5 mg tablet 5 mg PO DAILY prostate 06/11/18 [History Last Taken 06/07/21] insulin regular hum U-500 conc (Humulin R U-500 (Conc) Insulin Kwikpen) 105 unit SQ BID diabetes 06/11/18 [History Last Taken 06/06/21] nitroglycerin 0.4 mg sublingual tablet 0.4 mg sublingual Q5M PRN Chest Pain #30 TABLETS 07/22/18 [Rx Last Taken 01/17/20] pantoprazole 40 mg tablet,delayed release 40 mg PO BID GERD 05/18/20 [History Last Taken 06/07/21] acetaminophen 325 mg tablet (Tylenol) 325 mg PO Q6H PRN PRN Mild pain 1-3/Temp > 100.7 F 06/22/20 [History Last Taken 06/07/21] carvedilol 25 mg tablet 25 mg PO BID blood pressure 06/22/20 [History Last Taken 06/07/21] furosemide 40 mg tablet 40 mg PO DAILY FLUID 06/22/20 [History Last Taken 06/07/21] multivitamin 1 tab PO DAILY SUPPLEMENT 06/22/20 [History Last Taken 06/07/21] potassium chloride 20 mEq tablet,extended release(part/cryst) (Klor-Con M) 20 meq PO DAILY supplement 06/22/20 [History Last Taken 06/07/21] ranolazine 500 mg tablet,extended release,12 hr 500 mg PO BID chest pain 06/22/20 [History Last Taken 06/07/21] ferrous sulfate 325 mg (65 mg iron) tablet 325 mg PO BID #60 tabs 06/23/20 [Rx Last Taken 06/07/21] tamsulosin 0.4 mg capsule 0.8 mg PO QHS PROSTATE 08/10/20 [History Last Taken 06/06/21] clopidogrel 75 mg tablet (Plavix) 75 mg PO DAILY blood thinner 01/07/21 [History Last Taken 06/07/21] semaglutide (weight loss) 0.5 mg/0.5 mL subcutaneous pen injector 0.5 mg subcut QWEEK diabetes 02/24/21 [History Last Taken Unknown] albuterol sulfate 90 mcg/actuation aerosol inhaler 1 - 2 puff inhalation Q6H PRN sob 08/17/21 [History Last Taken Unknown] diclofenac sodium 1 % topical gel 1 ea topical BID 08/17/21 [History Last Taken Unknown] fenofibrate 54 mg tablet 54 mg PO DAILY 08/17/21 [History Last Taken Unknown] glucose 4 gram chewable tablet 16 g PO Q15M PRN Hypoglycemia 08/17/21 [History Last Taken Unknown] guaifenesin 100 mg/5 mL oral syrup 200 mg PO TID PRN Cough 08/17/21 [History Last Taken Unknown] levetiracetam 500 mg tablet 500 mg PO BID 08/17/21 [History Last Taken Unknown] prednisone 50 mg tablet 50 mg PO DAILY #4 tabs 08/17/21 [Rx Last Taken Unknown] Allergy/AdvReac Type Severity Reaction Status Date / Time ezetimibe Allergy Unknown Verified 08/17/21 11:59 Fish Containing Products Allergy Unknown Verified 08/17/21 11:59 glyburide Allergy Unknown Verified 08/17/21 11:59 isosorbide Allergy PT UNSURE Verified 08/17/21 11:59 OF REACTION lisinopril Allergy Unknown Verified 08/17/21 11:59 metformin Allergy Nausea Verified 08/17/21 11:59 metoprolol Allergy Unknown Verified 08/17/21 11:59 simvastatin Allergy Unknown Verified 08/17/21 11:59 Family History Father No problems noted. Surgical History H/O coronary artery bypass surgery History of cholecystectomy History of coronary artery stent placement History of knee replacement procedure of left knee History of permanent cardiac pacemaker placement (01/14/21) Social History household members: spouse Smoking Status: Former smoker substance use type: does not use ROS ROS ED Constitutional Constitutional ED: Denies chills or fever(s) Eyes Eyes: Denies change in vision ENT ENT ED: Denies rhinorrhea or sore throat Cardiovascular Cardiovascular: Reports chest pain Respiratory/Chest Respiratory/Chest: Reports cough, dyspnea and dyspnea on exertion Gastrointestinal Gastrointestinal: Denies abdominal pain or constipation Genitourinary Genitourinary ED: Denies dysuria or hematuria Musculoskeletal Musculoskeletal: Denies arthralgias or back pain Integumentary Denies abscess Neurologic Neurologic: Denies headache(s) or paresthesias Psychiatric Psychiatric: Denies anxiety or depression EXAM Physical Exam Const Vital Signs: 08/17/21 11:54 08/17/21 12:37 08/17/21 13:21 Temperature 97.2 F L Temperature Source Temporal Pulse Rate 67 62 Respiratory Rate 17 15 Respiratory Effort Short of Breath Respiratory Depth Shallow Respiratory Pattern Tachypnea Blood Pressure 163/73 H 166/77 H Blood Pressure Mean 103 106 Pulse Ox 97 98 Oxygen Delivery Method Nasal Cannula Nasal Cannula Nasal Cannula Oxygen Flow Rate (L/min) 3 5 5 08/17/21 14:21 08/17/21 15:42 Temperature Temperature Source Pulse Rate 60 60 Respiratory Rate 17 16 Respiratory Effort Respiratory Depth Respiratory Pattern Blood Pressure 157/68 H 180/90 H Blood Pressure Mean 97 120 Pulse Ox 95 97 Oxygen Delivery Method Nasal Cannula Nasal Cannula Oxygen Flow Rate (L/min) 5 5 Positive obese General Appearance ED: NAD; Negative for pallor Nutritional Appearance: obese HEENT Reports dry mucous membranes Mouth ED: Yes dry mucous membranes Mouth: dry mucous membranes Eyes PERRL and EOMs intact bilaterally General Eye ED: Negative for pale conjunctiva or scleral icterus Neck no lymphadenopathy Resp normal respiratory effort Effort and Inspection: able to speak in complete sentences; Negative for respi ratory distress, pursed lip breathing, tracheal deviation or tripod positioning Auscultation: diminished lung sounds bilateral lower Cardio regular rate and regular rhythm Extremity normal to inspection Neuro oriented x3 and CN's II-XII intact bilaterally Psych mental status grossly normal Skin General Skin Exam: Negative for jaundice or pallor MDM MDM MDM Narrative Medical decision making narrative: Presenting with shortness of breath. He has multiple comorbidities. He was not wheezing on examination and has not been hypoxic here. He did get breathing treatments in route so I did give him Solu-Medrol. CBC and BMP are ultimately unremarkable. D-dimer age-adjusted is negative. BNP is 211 however his chest x-ray on my interpretation shows no acute cardiopulmonary process and radiologist does agree. High-sensitivity troponin is initially 27 and 2-hour troponin is 25. There is no significant interval change here. The patient has been having chest pain for 3 days straight I do not believe this is cardiac in nature. She was given 2 doses of morphine 4 mg IV while he was in the emergency room. After his work-up was negative I do not believe he needs any narcotic pain medication for home. I recommend alternating doses of Tylenol and ibuprofen. Patient was ambulated in the hallway and did not drop his saturations on his baseline oxygen. He is counseled needs to follow-up with his PCP at the [facility]. Return precautions discussed. Impression: 1. Dyspnea 2. COPD exacerbation 3. Chest pain Lab Data Attestation: I reviewed the patient's lab results. Labs: Laboratory Results - last 24 hr 08/17/21 08/17/21 08/17/21 12:30 12:30 12:30 WBC 4.1 L RBC 3.52 L Hgb 11.5 L Hct 34.9 L MCV 99.1 H MCH 32.7 H MCHC 33.0 RDW Std Deviation 49.8 H RDW Coeff of Cinda 13.8 Plt Count 124 L MPV 10.8 Immature Gran % (Auto) 0.200 Neut % (Auto) 71.5 H Lymph % (Auto) 20.0 [place] % (Auto) 6.4 Eos % (Auto) 1.7 Baso % (Auto) 0.2 Absolute Neuts (auto) 2.9 Absolute Lymphs (auto) 0.81 L Nucleated RBC % 0 D-Dimer Quant (PE/DVT) Sodium 139 Potassium 4.1 Chloride 102 Carbon Dioxide 32.0 Anion Gap 5 BUN 12 Creatinine 0.89 Estim Creat Clear Calc 78.60 Est GFR (MDRD) Af Amer 109 Est GFR (MDRD) Non-Af 90 BUN/Creatinine Ratio 13.5 Glucose 267 H Calcium 8.4 L Troponin I High Sens 27 B-Natriuretic Peptide 211.0 H 08/17/21 08/17/21 12:30 15:00 WBC RBC Hgb Hct MCV MCH MCHC RDW Std Deviation RDW Coeff of Cinda Plt Count MPV Immature Gran % (Auto) Neut % (Auto) Lymph % (Auto) [place] % (Auto) Eos % (Auto) Baso % (Auto) Absolute Neuts (auto) Absolute Lymphs (auto) Nucleated RBC % D-Dimer Quant (PE/DVT) 0.71 H* Sodium Potassium Chloride Carbon Dioxide Anion Gap BUN Creatinine Estim Creat Clear Calc Est GFR (MDRD) Af Amer Est GFR (MDRD) Non-Af BUN/Creatinine Ratio Glucose Calcium Troponin I High Sens 25 B-Natriuretic Peptide Radiography Diagnostic Testing: Clinical Impression(s) from Imaging Studies Chest X-Ray 08/17/21 12:10 IMPRESSION: No acute cardiopulmonary process. Electronically Signed: Stephy Alberto MD at 13:11 EDT , Discharge Plan Triage Chief Complaint: Shortness of Breath ED Provider: Cristian Oliveira Dx/Rx/DC Orders Instructions: ED COPD Flare Prescriptions: New prednisone 50 mg tablet 50 mg PO DAILY Qty: 4 0RF No Action clopidogrel [Plavix] 75 mg tablet 75 mg PO DAILY atorvastatin 80 MG tablet 80 mg PO QHS Rx Instructions: cholesterol aspirin 81 MG tablet 81 mg PO DAILY@0800 finasteride 5 MG tablet 5 mg PO DAILY escitalopram oxalate 10 MG tablet 10 mg PO DAILY cholecalciferol (vitamin D3) [Vitamin D3] 1,000 UNIT tablet 3,000 units PO DAILY Humulin R U-500 (Conc) Kwikpen 500 UNIT/ML insulin pen 105 unit SQ BID nitroglycerin 0.4 MG tablet, sublingual 0.4 mg sublingual Q5M PRN (Reason: Chest Pain) Qty: 30 0RF Rx Instructions: Place one tab under tongue every 5 minutes x 3 doses as needed pantoprazole 40 MG tablet 40 mg PO BID carvedilol 25 MG tablet 25 mg PO BID multivitamin Tablet 1 tab PO DAILY furosemide 40 mg Tablet 40 mg PO DAILY potassium chloride [Klor-Con M20] 20 mEq Tablet,Er Particles/Crystals 20 meq PO DAILY ranolazine 500 mg Tablet Extended Release 12 Hr 500 mg PO BID acetaminophen [Tylenol] 325 MG tablet 325 mg PO Q6H PRN PRN (Reason: Mild pain 1-3/Temp > 100.7 F) ferrous sulfate 325 mg (65 mg iron) tablet 325 mg PO BID Qty: 60 0RF tamsulosin 0.4 MG capsule 0.8 mg PO QHS semaglutide (weight loss) 0.5 mg/0.5 mL Pen Injector 0.5 mg SUBCUT QWEEK levetiracetam 500 mg Tablet 500 mg PO BID glucose 4 gram Tablet,Chewable 16 g PO Q15M PRN (Reason: Hypoglycemia) Rx Instructions: until symptoms of low blood sugar are controlled albuterol sulfate 90 mcg/actuation Hfa Aerosol Inhaler 1 - 2 puff INHALATION Q6H PRN (Reason: sob) guaifenesin 100 mg/5 mL Syrup 200 mg PO TID PRN (Reason: Cough) diclofenac sodium 1 % Gel 1 ea TOPICAL BID fenofibrate 54 mg Tablet 54 mg PO DAILY [facility] [[facility] Provider] - Disposition Disposition: Home, Self Care
[2021-08-17] MEDS: Ondansetron 4 MG/2 ML Vial IV (12:35)
[2021-08-17] MEDS: Morphine 4 MG/ML Syringe IV (12:36)
[2021-08-17 12:44] LABS: Absolute Lymphocyte Count 0.81 X10^3/uL (0.83-4.51); Absolute Neutrophil Count 2.9 X10^3/uL (2.0-7.7); Basophil# 0.01 X10^3/uL; Basophil% 0.2 % (0-1); Eosinophil# 0.07 X10^3/uL; Eosinophils% 1.7 % (0-5); Hematocrit 34.9 % (40-54); Hemoglobin 11.5 g/dL (13.0-16.5); Lymphocyte # 0.81 X10^3/ul (0.83-4.51); Mean Corpuscular Hgb 32.7 pg (27.0-32.0); Mean Corpuscular Volume 99.1 fL (80-94); Mean Platelet Vol. 10.8 fl (6.2-12.0); Monocyte# 0.26 X10^3/uL; Monocyte% 6.4 % (0-10); NRBC Flagged by Analyzer 0 % (0-5); Neutrophil # 2.89 X10^3/uL (2.7-7.7); Neutrophil % 71.5 % (47-70); Platelet Count 124 K/mm3 (150-450); RBC Distribution Width CV 13.8 % (11.6-14.6); RBC Distribution Width SD 49.8 fl (35.1-43.9); Red Blood Count 3.52 M/mm3 (4.6-6.2); White Blood Count 4.1 K/mm3 (4.4-11.0)
[2021-08-17 12:56] LABS: Anion Gap 5 (5-15); BUN 12 mg/dL (7-18); BUN/Creat Ratio 13.5 RATIO (10-20); Calcium,Total 8.4 mg/dL (8.5-10.1); Chloride 102 mmol/L (98-107); Creatinine, Serum 0.89 mg/dL (0.70-1.30); EST Glomerular Filtration Rate 90 mL/min (>60); Est Glom Filt Rate - Afr Amer 109 mL/min (>60); Glucose 267 mg/dL (74-106); Potassium 4.1 mmol/L (3.5-5.1); Sodium Level 139 mmol/L (136-145); Troponin-I HS 27 pg/mL (3.0-78.0)
[2021-08-17 13:06] LABS: D-Dimer Quantitative (DVT/PE) 0.71 FEU/ug/m (0.27-0.49)
[2021-08-17 15:28] LABS: Troponin-I HS 25 pg/mL (3.0-78.0)
== END 2021-08-17 16:35 | disposition home or self-care (01) ==
PROVIDERS: Emergency Provider Student in an Organized Health Care Education/Training Program; Visit Provider Student in an Organized Health Care Education/Training Program
DX: J44.1 Chronic obstructive pulmonary disease with (acute) exacerbation (principal); I11.0 Hypertensive heart disease with heart failure; I50.9 Heart failure, unspecified; E11.9 Type 2 diabetes mellitus without complications; E78.5 Hyperlipidemia, unspecified; I25.10 Atherosclerotic heart disease of native coronary artery without angina pectoris; Z87.891 Personal history of nicotine dependence; R07.9 Chest pain, unspecified
CPT/HCPCS: 36415; 71045; 80048; 83880; 84484; 85025; 85379; 87811; 93005; 99285; A4216; J2405

== ENCOUNTER 2021-10-11 17:54 | Observation (INO) | payer OTHER, SELFPAY ==
[2021-10-11] VITALS (15 sets, daily range): BP systolic 143–174; BP diastolic 69–110; PULSE 59–67; RESP 12–22; TEMP 35.9–36.6; O2SAT 95–99; BMI 79.0; BMI 36.3; BMI 35.3
--- NOTE | 2021-10-11 17:55 | EKG12_ITS ---
Test Reason : DYSRHYTHMIA Blood Pressure : / mmHG Vent. Rate : 060 BPM Atrial Rate : 060 BPM P-R Int : 326 ms QRS Dur : 184 ms QT Int : 528 ms P-R-T Axes : 068 -63 104 degrees QTc Int : 528 ms AV dual-paced rhythm with prolonged AV conduction Abnormal ECG Confirmed by BRYN GUALLPA, JULIO C ([id number]), metropolitan editor NADINE FERRER ([id number]) on 10/14/2021 9:41:34 AM Referred By: SUSU Confirmed By:BELEN CLEMENTE MD
--- NOTE | 2021-10-11 17:56 | CT_ITS ---
STUDY: CTA HEAD AND NECK WITH CONTRAST REASON FOR EXAM: Male, 71 years old. Neuro deficit. Acute stroke suspected RADIATION DOSAGE (If Supplied By Facility): CTDIvol = ( 33.06 ) mGy, DLP = ( 763.27 ) mGycm TECHNIQUE: CT angiography was performed with a multi-detector CT scanner. Data acquisition was obtained from the skull base through the vertex following intravenous administration of IV 100mL [id number]-[id number]. MIP images were reconstructed from the axial data set. Post-processing of the angiographic images was performed, with multiplanar reformation and 3D reconstruction. Individualized dose optimization techniques were used for this CT. COMPARISON: No relevant priors. FINDINGS: Normal bilateral petrous carotid arteries. There is calcified plaque formation of the right cavernous carotid artery, without a cross-sectional luminal stenosis. There is calcified plaque formation of the left cavernous carotid artery, without a cross-sectional luminal stenosis. Normal right A1 segments of the anterior cerebral artery. Normal left A1 segments of the anterior cerebral artery. Normal intact anterior communicating artery (ACOM). Normal bilateral A2 segments of the anterior cerebral arteries. Normal right M1 and M2 segments of the middle cerebral arteries, with a normal M1 bifurcation. Normal left M1 and M2 segments of the middle cerebral arteries, with a normal M1 bifurcation. There is non-visualization of the right posterior communicating artery (PCOM). There is non-visualization of the left posterior communicating artery (PCOM). Normal bilateral vertebral arteries. Normal basilar artery with a normal basilar bifurcation. The visualized bilateral superior cerebellar (SCA) arteries are normal. Normal bilateral P1, P2 and visualized P3 segments of the posterior cerebral arteries. There is no demonstrated aneurysm of the [place]. There is no demonstrated abnormality of the visualized brain. AORTIC ARCH: Normal visualized aortic arch. Normal origins of the brachiocephalic, left common carotid, and left subclavian arteries. RIGHT CAROTID ARTERIES: Normal right common carotid artery (CCA). There is minimal atherosclerotic plaque at the carotid bifurcation without stenosis. Normal origin of the right internal carotid (ICA) artery without a hemodynamically significant stenosis. Normal visualized cervical portion of the right internal carotid artery. Normal origin of the right external carotid artery (ECA). LEFT CAROTID ARTERIES: Normal left common carotid artery (CCA). Atherosclerotic plaque of the carotid bifurcation without significant stenosis. Normal origin of the left internal carotid (ICA) artery without a hemodynamically significant stenosis. Normal visualized cervical portion of the left internal carotid artery. Normal origin of the left external carotid artery (ECA). VERTEBRAL ARTERIES: Normal bilateral vertebral arteries. CT/STROKE CTA Head AND Neck W/Con IMPRESSION: 1. No evidence of aneurysm or occluded arteries. 2. Essentially normal [place]. N.B. : The above Results were Read Back by Henrry Baron DO to Dr. Yadiel Guzman MD, and understanding confirmed on 10/11/2021 18:44:55 (ET). Electronically Signed: Henrry Baron DO at 18:49 EDT ,
--- NOTE | 2021-10-11 17:58 | CT_ITS ---
We are attempting to reach an attending provider to discuss findings. An addendum with communication details will be sent when the communication is complete. STUDY: CT HEAD STROKE PROTOCOL W/O CONTRAST INJECTION REASON FOR EXAM: Male, 71 years old. There are deficit. Acute strokes of SPECT. RADIATION DOSAGE (If Supplied By Facility): CTDIvol = ( ) mGy, DLP = ( 846.73 ) mGycm TECHNIQUE: Transaxial CT imaging of the brain was performed without administration of intravenous contrast material. Individualized dose optimization techniques were used for this CT. COMPARISON: CT of the brain, 06/07/2021. FINDINGS: Normal soft tissue structures. Normal calvarium. Normal size ventricles and extra-axial spaces for the patient''s age. There are areas of decreased attenuation within the white matter tracts of the supratentorial brain, consistent with microvascular disease changes. Normal basal ganglia and thalami. Normal brainstem. Normal cerebellum. There is no intracranial hemorrhage. There are no findings of an acute ischemic infarction. Normal visualized paranasal sinuses. ASPECT score: 10 CT/STROKE Brain/Head without Cont IMPRESSION: No acute intracranial or calvarial abnormality. No major interval change. Electronically Signed: Henrry Baron DO at 18:11 EDT Reading Location ID and State: [address] [place] [address] Tel [phone], Service support ,
--- NOTE | 2021-10-11 18:02 | ED.VIS.STROK ---
HPI History of Present Illness Chief Complaint: Neuro S/Sx Informant: patient, spouse/S.O. and EMS Onset/Context/Timing Onset: Hours (Onset 1730) Context: Sudden Onset Timing: Continuous Quality and Location: Positive for Left Facial Droop, Left Arm Parasthesia, Left Leg Parasthesia, Left Arm Weakness, Left Leg Weakness and Expressive Aphasia Current Severity: Severe Maximum Severity: Severe Worsened by: Nothing Relieved by: Nothing Associated Symptoms Associated Symptoms: Positive for - (Unable to determine) Narrative Narrative: Patient is a 71-year-old male with history of sick sinus syndrome, left hemiparesis, coronary disease, essential hypertension, obstructive sleep apnea, hyperlipidemia who presents by ambulance because of right hemispheric stroke with paralysis of the left side, trouble with speech. Prior similar symptoms: Yes Recent Illness/Hospitalization: No [facility] Medical History Abnormal EKG Anemia Atherosclerotic heart disease kenaitze coronary artery w/angina pectoris BiPAP (biphasic positive airway pressure) dependence Chest pain Chronic respiratory failure Congestive heart failure (CHF) Diabetes DM type 2 (diabetes mellitus, type 2) Essential (primary) hypertension Former smoker History of fractured rib Hyperlipidemia Myocardial infarct Obesity On home oxygen therapy EKATERINA (obstructive sleep apnea) Pacemaker Pacemaker battery depletion Pulmonary embolism Sick sinus syndrome Stroke/cerebrovascular accident Wears hearing aid in both ears Home Medications aspirin 81 mg tablet,delayed release 81 mg PO DAILY@0800 health maintenance 06/11/18 [History Last Taken 06/07/21] atorvastatin 80 mg tablet 80 mg PO QHS cholesterol 06/11/18 [History Last Taken 06/06/21] cholecalciferol (vitamin D3) 25 mcg (1,000 unit) tablet (Vitamin D3) 3,000 units PO DAILY supplement 06/11/18 [History Last Taken 06/06/21] escitalopram oxalate 10 mg tablet 10 mg PO DAILY depression 06/11/18 [History Last Taken 06/07/21] finasteride 5 mg tablet 5 mg PO DAILY prostate 06/11/18 [History Last Taken 06/07/21] insulin regular hum U-500 conc 500 unit/mL(3 mL) subcut pen (Humulin R U-500 (Conc) Insulin Kwikpen) 100 unit SQ BID diabetes 06/11/18 [History Last Taken 06/06/21] nitroglycerin 0.4 mg sublingual tablet 0.4 mg sublingual Q5M PRN Chest Pain #30 TABLETS 07/22/18 [Rx Last Taken 01/17/20] pantoprazole 40 mg tablet,delayed release 40 mg PO BID GERD 05/18/20 [History Last Taken 06/07/21] acetaminophen 325 mg tablet (Tylenol) 325 mg PO Q6H PRN PRN Mild pain 1-3/Temp > 100.7 F 06/22/20 [History Last Taken 06/07/21] carvedilol 25 mg tablet 25 mg PO BID blood pressure 06/22/20 [History Last Taken 06/07/21] furosemide 40 mg tablet 40 mg PO DAILY FLUID 06/22/20 [History Last Taken 06/07/21] multivitamin 1 tab PO DAILY SUPPLEMENT 06/22/20 [History Last Taken 06/07/21] potassium chloride 20 mEq tablet,extended release(part/cryst) (Klor-Con M) 20 meq PO DAILY supplement 06/22/20 [History Last Taken 06/07/21] ranolazine 500 mg tablet,extended release,12 hr 500 mg PO BID chest pain 06/22/20 [History Last Taken 06/07/21] ferrous sulfate 325 mg (65 mg iron) tablet 325 mg PO BID #60 tabs 06/23/20 [Rx Last Taken 06/07/21] tamsulosin 0.4 mg capsule 0.4 mg PO QHS PROSTATE 08/10/20 [History Last Taken 06/06/21] clopidogrel 75 mg tablet (Plavix) 75 mg PO DAILY blood thinner 01/07/21 [History Last Taken 06/07/21] semaglutide (weight loss) 0.5 mg/0.5 mL subcutaneous pen injector 0.5 mg subcut QWEEK diabetes 02/24/21 [History Last Taken Unknown] albuterol sulfate 90 mcg/actuation aerosol inhaler 1 - 2 puff inhalation Q6H PRN sob 08/17/21 [History Last Taken Unknown] diclofenac sodium 1 % topical gel 1 ea topical BID 08/17/21 [History Last Taken Unknown] fenofibrate 54 mg tablet 48 mg PO DAILY 08/17/21 [History Last Taken Unknown] glucose 4 gram chewable tablet 16 g PO Q15M PRN Hypoglycemia 08/17/21 [History Last Taken Unknown] guaifenesin 100 mg/5 mL oral syrup 200 mg PO TID PRN Cough 08/17/21 [History Last Taken Unknown] levetiracetam 500 mg tablet 500 mg PO BID 08/17/21 [History Last Taken Unknown] gabapentin 300 mg capsule 300 mg PO BID 10/11/21 [History Last Taken Unknown] magnesium 200 mg tablet 400 mg PO BID 10/11/21 [History Last Taken Unknown] Allergy/AdvReac Type Severity Reaction Status Date / Time ezetimibe Allergy Unknown Verified 10/11/21 19:10 Fish Containing Products Allergy Unknown Verified 10/11/21 19:10 glyburide Allergy Unknown Verified 10/11/21 19:10 isosorbide Allergy PT UNSURE Verified 10/11/21 19:10 OF REACTION lisinopril Allergy Unknown Verified 10/11/21 19:10 metformin Allergy Nausea Verified 10/11/21 19:10 metoprolol Allergy Unknown Verified 10/11/21 19:10 simvastatin Allergy Unknown Verified 10/11/21 19:10 gabapentin AdvReac Other Verified 10/11/21 19:10 Family History Father No problems noted. Surgical History H/O coronary artery bypass surgery History of cholecystectomy History of coronary artery stent placement History of knee replacement procedure of left knee History of permanent cardiac pacemaker placement (01/14/21) Social History (Updated 10/11/21 @ 18:[address] Yadiel Guzman MD) household members: spouse Smoking Status: Former smoker details: Unknown substance use type: does not use ROS ROS ED Review of Systems ROS Unobtainable: due to mental status EXAM Physical Exam Const Vital Signs: 10/11/21 17:55 10/11/21 18:11 10/11/21 19:06 Temperature 97.9 F 97.6 F L Temperature Source Temporal Oral Pulse Rate 60 61 Respiratory Rate 14 18 Blood Pressure 154/80 H 168/79 H Blood Pressure Mean 104 108 Pulse Ox 98 Oxygen Delivery Method Nasal Cannula Nasal Cannula Oxygen Flow Rate (L/min) 3 3 10/11/21 18:15 10/11/21 18:30 10/11/21 18:45 Temperature Temperature Source Pulse Rate 63 62 64 Respiratory Rate 20 H 19 H 19 H Blood Pressure 165/77 H 170/110 H 155/72 H Blood Pressure Mean 106 130 99 Pulse Ox 99 99 99 Oxygen Delivery Method Nasal Cannula Nasal Cannula Nasal Cannula Oxygen Flow Rate (L/min) 3 3 3 10/11/21 19:00 10/11/21 19:30 Temperature Temperature Source Pulse Rate 67 61 Respiratory Rate 21 H 19 H Blood Pressure 174/73 H 155/75 H Blood Pressure Mean 106 101 Pulse Ox 97 95 Oxygen Delivery Method Nasal Cannula Nasal Cannula Oxygen Flow Rate (L/min) 3 3 Positive well nourished, well developed and obese General Appearance ED: well developed and NAD Nutritional Appearance: obese HEENT Reports moist mucous membranes atraumatic Eyes PERRL and EOMs intact bilaterally Eyes Narrative: There is no nystagmus. Pupils are 3 to 4 mm and do react. General Eye ED: Negative for pale conjunctiva or scleral icterus Neck no lymphadenopathy, supple and no JVD Chest Wall inspection of chest normal Resp normal respiratory effort and clear to auscultation bilaterally Cardio no murmurs Rate: regular rate Rhythm: regular rhythm Heart Sounds: S1 normal and S2 normal GI normal to inspection, nondistended, normoactive bowel sounds, soft to palpation, non-tender and non-distended Back/Spine no CVA tenderness Extremity normal to inspection General Extremety ED: Negative for deformity or tenderness General Extremity: Negative for deformity Neuro No oriented x3 and No no sensory deficits noted [place] Coma Scale: document GCS findings To Voice Obeys Commands Confused 13 Sensorium / Orientation: Negative for alert Psych mental status grossly normal Skin General Skin Exam: Negative for jaundice Lesions: no lesions Rashes: no rashes NIHSS NIHSS Initial: 1a Level of Consciousness: 1 1b LOC Questions (Score 2 if aphasic/stupor): 2 1c LOC Commands (Only score 1st attempt): 1 2 Best Gaze (If aphasic, use reflexive mvmts.): 0 4 Facial Palsy: 1 5 Motor Arm Right (UN = amputation/fusion): 0 5 Motor Arm Left: 4 6 Motor Leg Right: 0 6 Motor Leg Left: 4 7 Limb ataxia (Only + if out of proportion): 0 8 Sensory (Aphasia/stupor=0 or 1, coma=2): 1 9 Best Language: 2 10 Dysarthria (mute, coma=2, intubated=UN): 1 11 Extinction and Inattention (only scored if +): 1 Total Score: 18 MDM MDM MDM Narrative Medical decision making narrative: Presents with right hemispheric stroke that started 25 minutes prior to presentation. Patient was sent immediately to radiology suite for CT of the head and CTA of the head and neck. CT of the head reveals no evidence of bleed. tPA was ordered. Stroke order set was initiated. Since patient does not have capacity make decision. Spoke with . gave verbal consent for tPA. She understands risk benefits. The informed the neurologist from [facility] that he had a hemorrhage when he was given tPA in the remote past. He now has a positive arm avoidance test. states this is similar to when he was diagnosed with conversion reaction. With prior history of hemorrhage after tPA and agreement with the [facility] urologist that this represents conversion reaction tPA was canceled. Patient's NIH is not improved. He still will not move his left side. He still does not grimace to noxious stimuli on the left side. Will call hospitalist for admission for conversion reaction Lab Data Labs: Laboratory Results - last 24 hr 10/11/21 10/11/21 10/11/21 18:18 18:18 18:18 WBC 4.7 RBC 3.52 L Hgb 11.3 L Hct 34.0 L MCV 96.6 H MCH 32.1 H MCHC 33.2 RDW Std Deviation 49.7 H RDW Coeff of Cinda 14.4 Plt Count 145 L MPV 9.6 Immature Gran % (Auto) 0.200 Neut % (Auto) 64.8 Lymph % (Auto) 22.3 [place] % (Auto) 8.4 Eos % (Auto) 4.1 Baso % (Auto) 0.2 Absolute Neuts (auto) 3.0 Absolute Lymphs (auto) 1.04 Nucleated RBC % 0 PT 14.5 INR 1.2 APTT 36.1 Sodium 138 Potassium 3.2 L Chloride 102 Carbon Dioxide 31.0 Anion Gap 5 BUN 13 Creatinine 0.94 Estim Creat Clear Calc 74.42 Est GFR (MDRD) Af Amer 102 Est GFR (MDRD) Non-Af 84 BUN/Creatinine Ratio 13.9 Glucose 240 H Calcium 8.0 L Troponin I High Sens 25 Radiography Diagnostic Testing: Clinical Impression(s) from Imaging Studies Head/Neck CTA 10/11/21 17:56 IMPRESSION: 1. No evidence of aneurysm or occluded arteries. 2. Essentially normal [place]. N.B. : The above Results were Read Back by Henrry Baron DO to Dr. Yadiel Guzman MD, and understanding confirmed on 10/11/2021 18:44:55 (ET). Electronically Signed: Henrry Baron DO at 18:49 EDT , ADDENDUM: 10/11/21 1856 IMPRESSION: 1. No evidence of aneurysm or occluded arteries. 2. Essentially normal [place]. N.B. : The above Results were Read Back by Henrry Baron DO to Dr. Yadiel Guzman MD, and understanding confirmed on 10/11/2021 18:44:55 (ET). Electronically Signed: Henrry Baron DO at 18:49 EDT Reading Location ID and State: [facility] / [place] Tel [phone], Service support , Brain CT 10/11/21 17:58 IMPRESSION: No acute intracranial or calvarial abnormality. No major interval change. Electronically Signed: Henrry Baron DO at 18:11 EDT Reading Location ID and State: [facility] / [place] Tel [phone], Service support , ADDENDUM: 10/11/21 185 IMPRESSION: No acute intracranial or calvarial abnormality. No major interval change. N.B. : The above Results were Read Back by Henrry Baron DO to Dr. Yadiel Guzman MD, and understanding confirmed on 10/11/2021 18:48:46 (ET). Electronically Signed: Henrry Baron DO at 18:11 EDT , Chest X-Ray 10/11/21 18:38 IMPRESSION: No acute cardiopulmonary disease or interval change. Electronically Signed: Henrry Baron DO at 19:10 EDT Reading Location ID and State: [address] [place] [address] Tel [phone], Service support , Stroke Documentation Questions Stroke Team Activated: Yes Reviewed Inclusion/Exclusion criteria: Yes IV Alteplase (t-PA) Administered: Yes No contraindications for IV Alteplase (t-PA) administration.: Yes Alteplase (t-PA) risks, benefits, alternative discussed: Yes Not given: Patient refusal: No Critical Care Time Critical Care Time: Yes Critical care time (excluding procedures): 30-74 minutes (33), Including time spent: (History, physical, documentation, review of prior records and review of contraindications to tPA), Discussing w/Patient &/or Family/Sand Temperer, Discussing w/Consultants (Radiologist and neurologist [facility]) and Arranging Admission or Transfer Discharge Plan Dx/Rx/DC Orders Clinical Impression: Conversion reaction, History of coronary artery stent placement, Atherosclerotic heart disease kenaitze coronary artery w/angina pectoris, COPD (chronic obstructive pulmonary disease), Sick sinus syndrome, History of TIAs, Chronic hyperglycemia Disposition Disposition: Acute Care Hospital [facility]
--- NOTE | 2021-10-11 18:15 | ED.RN ---
Difficult to assess NIHSS d/t pt's slurred speech and aphasia. Also pt is [place].
--- NOTE | 2021-10-11 18:19 | ED.RN ---
Awaiting for [facility] to beam in for telehealth neurology consult. Dr Guzman updated on pt's hx conversion disorder with presentations to ED w/same symptoms. Per Dr Guzman TPA is ordered but do not give until consult with [facility] is completed. RN remains present in room.
[2021-10-11 18:23] LABS: Absolute Lymphocyte Count 1.04 X10^3/uL (0.83-4.51); Basophil# 0.01 X10^3/uL; Basophil% 0.2 % (0-1); Eosinophil# 0.19 X10^3/uL; Eosinophils% 4.1 % (0-5); Hemoglobin 11.3 g/dL (13.0-16.5); Lymphocyte # 1.04 X10^3/ul (0.83-4.51); Lymphocyte % 22.3 % (19-41); Mean Corp Hgb Conc 33.2 g/dL (32-36); Mean Corpuscular Hgb 32.1 pg (27.0-32.0); Mean Corpuscular Volume 96.6 fL (80-94); Mean Platelet Vol. 9.6 fl (6.2-12.0); Monocyte# 0.39 X10^3/uL; Monocyte% 8.4 % (0-10); NRBC Flagged by Analyzer 0 % (0-5); Neutrophil # 3.03 X10^3/uL (2.7-7.7); Neutrophil % 64.8 % (47-70); Platelet Count 145 K/mm3 (150-450); RBC Distribution Width CV 14.4 % (11.6-14.6); RBC Distribution Width SD 49.7 fl (35.1-43.9); Red Blood Count 3.52 M/mm3 (4.6-6.2); White Blood Count 4.7 K/mm3 (4.4-11.0)
--- NOTE | 2021-10-11 18:29 | ED.RN ---
JORGE ALBERTO GUALLPA speaking w/Dr Guzman on camera in room.
--- NOTE | 2021-10-11 18:31 | ED.RN ---
Per [facility] & Dr Guzman, no TPA to be given.
[2021-10-11 18:37] LABS: International Normalized Ratio 1.2; Partial Thromboplast Time 36.1 Seconds (24.1-36.2); Prothrombin Time (Protime)PT. 14.5 SECONDS (11.7-14.9)
--- NOTE | 2021-10-11 18:38 | RAD_ITS ---
STUDY: X-RAY CHEST REASON FOR EXAM: Male, 71 years old. Neuro deficit. Acute stroke suspected. TECHNIQUE: Single AP portable view of the chest. COMPARISON: 06/22/2021. FINDINGS: The lungs are clear and expanded. There is no demonstrated pleural abnormality. Sternal cerclage wires are present from a prior sternotomy. The heart is mildly enlarged with stable left-sided cardiac pacemaker. Normal mediastinum and cata. Normal visualized pulmonary arteries. Normal visualized aortic arch and descending thoracic aorta. There are no osseous changes. Again seen are surgical repair of remote left rib fractures. There is no demonstrated abnormality of the visualized soft tissue structures of the upper abdomen. RAD/Chest 1 View IMPRESSION: No acute cardiopulmonary disease or interval change. Electronically Signed: Henrry Braon DO at 19:10 EDT ,
[2021-10-11 18:58] LABS: Anion Gap 5 (5-15); BUN 13 mg/dL (7-18); BUN/Creat Ratio 13.9 RATIO (10-20); Chloride 102 mmol/L (98-107); Creatinine, Serum 0.94 mg/dL (0.70-1.30); EST Glomerular Filtration Rate 84 mL/min (>60); Est Glom Filt Rate - Afr Amer 102 mL/min (>60); Estimated Creatinine Clearance 74.42 ml/min; Glucose 240 mg/dL (74-106); Potassium 3.2 mmol/L (3.5-5.1); Sodium Level 138 mmol/L (136-145); Troponin-I HS 25 pg/mL (3.0-78.0)
--- NOTE | 2021-10-11 19:48 | NURSING ---
unable to complete dysphagia at this time.
--- NOTE | 2021-10-11 19:54 | HP.PCM.HOS_ITS ---
HPI - General General Date of Admission: 10/11/21 Date of Service: 10/11/21 Chief Complaint: Acute L sided facial droop, paresthesias, L sided hemiplegia worsened from prior baseline w/ Expressive aphasia with suspected conversion with similar presentations prior. HPI Narrative The patient is a 71 y/o M w/ PMHx: Anxiety and Depression, Obesity, Chronic anemia, CAD s/p CABG and PCI, HTN ,HLD, Chronic COPD w/ Chronic Hypoxic Respiratory Failure, Hx PE, Diabetes mellitus type II, Hx sick sinus syndrome s/p pacemaker placement, EKATERINA on BIPAP q HS, Reported Hx Diastolic CHF however 08/06/20 ECHO not marked appearing w/ normal systolic Fx and normal diastolic Fx, Hx CVA w/ chronic aphasia and L sided hemiplegia with several past similar pr esentations most recently 06/08/21 on dual antiplt therapy, statin, HTN and diabetic regimen with declined SNF at that time who now re-presents to the [facility] ED on 10/11/21 with history of onset approximately 25 minutes prior to ED presentation sudden onset left facial droop, left upper and lower extremity paresthesias as well as significant weakness and expressive aphasia with concern for acute right hemispheric stroke. Jeremías discussion seen with spouse who notes that patient has been under an excess amount of stress secondary to financial difficulties. Upon initial ED presentation NIH stroke score 18 with 1 for level of consciousness, 2 for LOC questions, 1 for LOC commands, 1 for facial palsy, 4 for left upper extremity, 4 for left lower extremity, 1 for sensory, 2 for best language, 1 for dysarthria, 1 for extinction and inattention. Work-up in the ED included T97.9, heart rate 60, BP 154/80, respiratory rate 14, 90% on 3 L nasal cannula, CBC WC 4.7, hemoglobin 11.3, MCV 96.6, platelet 145 without marked shift, unremarkable coags, BMP with potassium 3.2, glucose 240, troponin 25, ch est x-ray with no acute cardiopulmonary findings, CT brain with no acute intracranial or calvarial abnormalities with no major interval change since prior, CTA head neck with no evidence of aneurysm or occluded arteries and essentially normal eagle of [place], EKG paced without acute evidence of isc hemia. Telestroke alert performed with noted concern per neurology service the patient's had multiple admissions for similar presentation and has often been found to have spells of conversion thus Neurology deferred TPA. [facility] Medical History Abnormal EKG Anemia Atherosclerotic heart disease [place] coronary artery w/angina pectoris BiPAP (biphasic positive airway pressure) dependence Chest pain Chronic respiratory failure Congestive heart failure (CHF) Diabetes DM type 2 (diabetes mellitus, type 2) Essential (primary) hypertension Former smoker History of fractured rib Hyperlipidemia Myocardial infarct Obesity On home oxygen therapy EKATERINA (obstructive sleep apnea) Pacemaker Pacemaker battery depletion Pulmonary embolism Sick sinus syndrome Stroke/cerebrovascular accident Wears hearing aid in both ears Home Medications aspirin 81 mg tablet,delayed release 81 mg PO DAILY@0800 health maintenance 06/11/18 [History Last Taken 06/07/21] atorvastatin 80 mg tablet 80 mg PO QHS cholesterol 06/11/18 [History Last Taken 06/06/21] cholecalciferol (vitamin D3) 25 mcg (1,000 unit) tablet (Vitamin D3) 3,000 units PO DAILY supplement 06/11/18 [History Last Taken 06/06/21] escitalopram oxalate 10 mg tablet 10 mg PO DAILY depression 06/11/18 [History Last Taken 06/07/21] finasteride 5 mg tablet 5 mg PO DAILY prostate 06/11/18 [History Last Taken 06/07/21] insulin regular hum U-500 conc 500 unit/mL(3 mL) subcut pen (Humulin R U-500 (Conc) Insulin Kwikpen) 100 unit SQ BID diabetes 06/11/18 [History Last Taken 06/06/21] nitroglycerin 0.4 mg sublingual tablet 0.4 mg sublingual Q5M PRN Chest Pain #30 TABLETS 07/22/18 [Rx Last Taken 01/17/20] pantoprazole 40 mg tablet,delayed release 40 mg PO BID GERD 05/18/20 [History Last Taken 06/07/21] acetaminophen 325 mg tablet (Tylenol) 325 mg PO Q6H PRN PRN Mild pain 1-3/Temp > 100.7 F 06/22/20 [History Last Taken 06/07/21] carvedilol 25 mg tablet 25 mg PO BID blood pressure 06/22/20 [History Last Taken 06/07/21] furosemide 40 mg tablet 40 mg PO DAILY FLUID 06/22/20 [History Last Taken 06/07/21] multivitamin 1 tab PO DAILY SUPPLEMENT 06/22/20 [History Last Taken 06/07/21] potassium chloride 20 mEq tablet,extended release(part/cryst) (Klor-Con M) 20 meq PO DAILY supplement 06/22/20 [History Last Taken 06/07/21] ranolazine 500 mg tablet,extended release,12 hr 500 mg PO BID chest pain 1 [History Last Taken 06/07/21] ferrous sulfate 325 mg (65 mg iron) tablet 325 mg PO BID #60 tabs 06/23/20 [Rx Last Taken 06/07/21] tamsulosin 0.4 mg capsule 0.4 mg PO QHS PROSTATE 08/10/20 [History Last Taken 06/06/21] clopidogrel 75 mg tablet (Plavix) 75 mg PO DAILY blood thinner 01/07/21 [History Last Taken 06/07/21] semaglutide (weight loss) 0.5 mg/0.5 mL subcutaneous pen injector 0.5 mg subcut QWEEK diabetes 02/24/21 [History Last Taken Unknown] albuterol sulfate 90 mcg/actuation aerosol inhaler 1 - 2 puff inhalation Q6H PRN sob 08/17/21 [History Last Taken Unknown] diclofenac sodium 1 % topical gel 1 ea topical BID 08/17/21 [History Last Taken Unknown] fenofibrate 54 mg tablet 48 mg PO DAILY 08/17/21 [History Last Taken Unknown] glucose 4 gram chewable tablet 16 g PO Q15M PRN Hypoglycemia 08/17/21 [History Last Taken Unknown] guaifenesin 100 mg/5 mL oral syrup 200 mg PO TID PRN Cough 08/17/21 [History Last Taken Unknown] levetiracetam 500 mg tablet 500 mg PO BID 08/17/21 [History Last Taken Unknown] gabapentin 300 mg capsule 300 mg PO BID 10/11/21 [History Last Taken Unknown] magnesium 200 mg tablet 400 mg PO BID 10/11/21 [History Last Taken Unknown] Allergy/AdvReac Type Severity Reaction Status Date / Time ezetimibe Allergy Unknown Verified 10/11/21 19:10 Fish Containing Products Allergy Unknown Verified 10/11/21 19:10 glyburide Allergy Unknown Verified 10/11/21 19:10 isosorbide Allergy PT UNSURE Verified 10/11/21 19:10 OF REACTION lisinopril Allergy Unknown Verified 10/11/21 19:10 metformin Allergy Nausea Verified 10/11/21 19:10 metoprolol Allergy Unknown Verified 10/11/21 19:10 simvastatin Allergy Unknown Verified 10/11/21 19:10 gabapentin AdvReac Other Verified 10/11/21 19:10 Family History Father No problems noted. other (Denies any marked paternal or maternal family history including HD, DM, CA.) Surgical History H/O coronary artery bypass surgery History of cholecystectomy History of coronary artery stent placement History of knee replacement procedure of left knee History of permanent cardiac pacemaker placement (01/14/21) Social History (Updated 10/11/21 @ 18:[address] Yadiel Guzman MD) household members: spouse Smoking Status: Former smoker details: Unknown substance use type: does not use ROS ROS Narrative Admission Review of Systems: CONSTITUTIONAL: No weight loss, fever, chills, + weakness or fatigue. HEENT: Eyes: No visual loss, blurred vision, double vision or yellow sclerae. Ears, Nose, Throat: No hearing loss, sneezing, congestion, runny nose or sore throat. SKIN: No rash or itching, lesions, wounds. CARDIOVASCULAR: No chest pain, chest pressure or chest discomfort, palpitations, edema, orthopnea, syncopal events. RESPIRATORY: No shortness of breath, cough or sputum, wheezing, hemoptysis. GASTROINTESTINAL: No anorexia, nausea, vomiting or diarrhea, abdominal pain, melena, BRBPR. GENITOURINARY: No dysuria, frequency, urgency or retention. NEUROLOGICAL: + L sided facial droop, paresthesias, L sided hemiplegia, Expressive aphasia, L sided paresthesias, No headache, dizziness, syncope, ataxia, change in bowel or bladder control, seizure. MUSCULOSKELETAL: + muscle, back pain, joint pain or stiffness. HEMATOLOGIC: + anemia, bleeding or bruising. LYMPHATICS: No enlarged nodes. No history of splenectomy. PSYCHIATRIC: + history of depression or anxiety. ENDOCRINOLOGIC: No reports of sweating, cold or heat intolerance. No polyuria or polydipsia. ALLERGIES: + history of rhinitis. Vital Signs Vital Signs Vital Signs: 10/11/21 17:55 10/11/21 18:11 10/11/21 19:06 Temperature 97.9 F 97.6 F L Temperature Source Temporal Oral Pulse Rate 60 61 Respiratory Rate 14 18 Blood Pressure 154/80 H 168/79 H Blood Pressure Mean 104 108 Pulse Ox 98 Oxygen Delivery Method Nasal Cannula Nasal Cannula Oxygen Flow Rate (L/min) 3 3 10/11/21 18:15 10/11/21 18:30 10/11/21 18:45 Temperature Temperature Source Pulse Rate 63 62 64 Respiratory Rate 20 H 19 H 19 H Blood Pressure 165/77 H 170/110 H 155/72 H Blood Pressure Mean 106 130 99 Pulse Ox 99 99 99 Oxygen Delivery Method Nasal Cannula Nasal Cannula Nasal Cannula Oxygen Flow Rate (L/min) 3 3 3 10/11/21 19:00 10/11/21 19:30 Temperature Temperature Source Pulse Rate 67 61 Respiratory Rate 21 H 19 H Blood Pressure 174/73 H 155/75 H Blood Pressure Mean 106 101 Pulse Ox 97 95 Oxygen Delivery Method Nasal Cannula Nasal Cannula Oxygen Flow Rate (L/min) 3 3 Weight Weight: 253 lb 8.505 oz Body Mass Index (BMI) 36.3 Physical Exam Narrative Physical Examination: General: Awake, alert, oriented to self, place and events, once distracted able to speak more clearly, no facial droop, smiles with both sides and cooperative, seated upright in the ED bed in no apparent distress. Skin: Normal color, normal turgor, no icterus, no cyanosis except mild BL LE venous stasis skin changes. HEENT: AT/NC, EOMI, PERRLA, MMM, no obvious facial droop, speaks more clearly through evaluation once side tracked, laughing even with no droop noted, no carotid bruits or JVD noted. Lungs: Diminished, > bases, appropriate effort, no rales, ronchi or wheezing. Heart: Paced; no gallop, rub audible. Abdomen: Soft, obese, NTTP, ND, distant normal BS, no obvious HSM. Extremities: No cyanosis, clubbing, or edema. See skin. Neurological: Patient awake, alert, oriented as noted, cognitive function intact; pupils equally reactive to light and accommodation, cranial nerves grossly normal, moving all 4 extremities especially when side tracked, LUE does not fall to face with several attempts, always misses of note, LLE weakness improving, some difficulty with FTN and HTN L sided, notes sensation L sided improving, equivocal babinski. Psychiatric: Affect appears initially stressed, following lengthy discussions even began to laugh and evaluation improved following, no acute evidence of depressive or anxiety feelings but does have underlying history and concern for conversion per Neurology and from prior visits. Results Lab / Micro Data Result Diagrams: 10/11/21 18:18 10/11/21 18:18 Labs: Laboratory Results - last 24 hr 10/11/21 18:18: WBC 4.7, RBC 3.52 L, Hgb 11.3 L, Hct 34.0 L, MCV 96.6 H, MCH 32.1 H, MCHC 33.2, RDW Std Deviation 49.7 H, RDW Coeff of Cinda 14.4, Plt Count 145 L, MPV 9.6, Immature Gran % (Auto) 0.200, Neut % (Auto) 64.8, Lymph % (Auto) 22.3, [place] % (Auto) 8.4, Eos % (Auto) 4.1, Baso % (Auto) 0.2, Absolute Neuts (auto) 3.0, Absolute Lymphs (auto) 1.04, Nucleated RBC % 0 10/11/21 18:18: PT 14.5, INR 1.2, APTT 36.1 10/11/21 18:18: Sodium 138, Potassium 3.2 L, Chloride 102, Carbon Dioxide 31.0, Anion Gap 5, BUN 13, Creatinine 0.94, Estim Creat Clear Calc 74.42, Est GFR (MDRD) Af Amer 102, Est GFR (MDRD) Non-Af 84, BUN/Creatinine Ratio 13.9, Glucose 240 H, Calcium 8.0 L, Troponin I High Sens 25 Radiology Impression Head/Neck CTA 10/11/21 17:56 IMPRESSION: 1. No evidence of aneurysm or occluded arteries. 2. Essentially normal eagle of [place]. N.B. : The above Results were Read Back by Henrry Baron DO to Dr. Yadiel Guzman MD, and understanding confirmed on 10/11/2021 18:44:55 (ET). Electronically Signed: Henrry Baron DO at 18:49 EDT Reading Location ID and State: [facility] / [place] Tel [phone], Service support , ADDENDUM: 10/11/21 185 IMPRESSION: 1. No evidence of aneurysm or occluded arteries. 2. Essentially normal eagle of [place]. N.B. : The above Results were Read Back by Henrry Baron DO to Dr. Yadiel Guzman MD, and understanding confirmed on 10/11/2021 18:44:55 (ET). Electronically Signed: Henrry Baron DO at 18:49 EDT Reading Location ID and State: [facility] / [place] Tel [phone], Service support , Brain CT 10/11/21 17:58 IMPRESSION: No acute intracranial or calvarial abnormality. No major interval change. Electronically Signed: Henrry Baron DO at 18:11 EDT Reading Location ID and State: [address] [place] [address] Tel [phone], Service support , ADDENDUM: 10/11/21 185 IMPRESSION: No acute intracranial or calvarial abnormality. No major interval change. N.B. : The above Results were Read Back by Henrry Baron DO to Dr. Yadiel Guzman MD, and understanding confirmed on 10/11/2021 18:48:46 (ET). Electronically Signed: Henrry Baron DO at 18:11 EDT Reading Location ID and State: [facility] / [place] Tel [phone], Service support , Chest X-Ray 10/11/21 18:38 IMPRESSION: No acute cardiopulmonary disease or interval change. Electronically Signed: Henrry Baron DO at 19:10 EDT Reading Location ID and State: [facility] / [place] Tel [phone], Service support , Assessment & Plan Assessment/Plan (1) Conversion reaction: PLAN: Plan The patient is a 71 y/o M w/ PMHx: Anxiety and Depression, Obesity, Chronic anemia, CAD s/p CABG and PCI, HTN ,HLD, Chronic COPD w/ Chronic Hypoxic Respiratory Failure, Hx PE, Diabetes mellitus type II, Hx sick sinus syndrome s/p pacemaker placement, EKATERINA on BIPAP q HS, Reported Hx Diastolic CHF however 08/06/20 ECHO not marked appearing w/ normal systolic Fx and normal diastolic Fx, Hx CVA w/ chronic aphasia and L sided hemiplegia with several past similar presentations most recently 06/08/21 on dual antiplt therapy, statin, HTN and diabetic regimen with declined SNF at that time who now re-presents to the [facility] ED on 10/11/21 with history of onset approximately 25 minutes prior to ED presentation sudden onset left facial droop, left upper and lower extremity paresthesias as well as significant weakness and expressive aphasia. #1. Acute L sided facial droop, paresthesias, L sided hemiplegia worsened from prior baseline w/ Expressive aphasia initially concerning for Recurrent Acute R hemispheric CVA w/ Hx Prior CVA; however, Patient with similar presentation prior, serial visits with suspected Acute Conversion: medical staff coordinator and neurology performed appropriate differentiation examination and definite + conversion appearance. Will admit to PCU, avoid TPA per Neurology recommendation as their exam consistent with conversion disorder, will perform NIHSS assessments to assure improvement trending, will consult CM to assist with situation and will need psychiatric follow-up to investigate reason for conversion. Will continue aspirin and Plavix, continue HTN regimen, continue statin once cleared for oral intake per recommendation of Neurology as despite being conversion do not want to risk aspiration. Often, patient improves by morning per review of records with Neurology and ED discussions. Case management consulted as discussed with and noted patient with with high stress, will benefit from counseling to develop healthier methods of dealing with stress. #2. Hypokalemia: Admission K+ 3.2, magnesium level requested, supplementation given, repeat level in AM. #3. Chronic COPD with chronic hypoxic respiratory failure (from records suspect 3 L nasal cannula chronic): Will maintain on home oxygen supplementation, continue ATC duonebs, PRN albuterol, HOB, IS parameters. #4. CAD: Status post CABG and PCI, will continue aspirin and Plavix, continue HTN regimen, continue statin therapy as well as fenofibrate in addition to Ranexa if oral intake swallow evaluation cleared. #5. Questionable diastolic CHF: Noted in history however [facility]/ noted LV size and systolic function normal, pacemaker lead in right ventricle, EF 50 to 55%, mildly dilated LA, mild TR, RVSP 25 mmHg Doppler measurements indicate a normal LV diastolic function, continue aspirin and Plavix, HTN regimen, statin and fenofibrate if oral intake deemed appropriate following swallow evaluation. #6. Seizure disorder: We will continue patient home levetiracetam. #7. History of pulmonary embolism: Not on any chronic anticoagulation per review of current list. #8. Hypertension: Continue HTN regimen. #9. Hyperlipidemia: Continue home fenofibrate and statin therapy if swallow evaluation cleared. #10. Diabetes mellitus type II: Hold oral home regimen, continue home insulin regimen, ADA diet if cleared following swallow evaluation, accu checks w/ ISS. #11. History sick sinus syndrome: Status post pacemaker placement. #12. Chronic macrocytic anemia/Fe deficiency anemia: Admission hemoglobin 11.3, similar to baseline, primarily 11-12 range, will continue to trend, continue supplementation if oral intake deemed safe following swallow evaluation. #13. Chronic thrombocytopenia: Admission platelets 145, prior 124-149 more recently over 2021, continue to trend. #14. Obesity: Weight loss and lifestyle changes encouraged. #15. BPH: We will continue patient home Flomax and finasteride regimen if oral intake deemed safe following swallow evaluation. #16. Anxiety and depression: We will continue patient home escitalopram regimen. #17. GERD: We will continue patient home oral PPI. #18. EKATERINA: BiPAP nightly. #19. DVT prophylaxis: SCDs, lovenox. #20. CODE status: Patient BERTA is his who is present and living will is currently in place. Discussed CODE status at length including difference between FULL code, DNR-CCA and DNR-CC status. Following discussions about the differences in these status, requested Full Code status. Advanced Care Planning Face to Face Time: 16 minutes. Charges/Coding Visit Charges OBSV E&M: 45491 Initial observation care L3 Procedures Hospitalists Procedures: 11994 Advncd Care Plan 30 Min
[2021-10-11 20:31] LABS: Magnesium 1.5 mg/dL (1.6-2.6)
--- NOTE | 2021-10-11 21:28 | EKG12_ITS ---
Test Reason : CP ADMIT Blood Pressure : / mmHG Vent. Rate : 060 BPM Atrial Rate : 060 BPM P-R Int : 318 ms QRS Dur : 180 ms QT Int : 522 ms P-R-T Axes : 000 -65 107 degrees QTc Int : 522 ms AV dual-paced rhythm with prolonged AV conduction Abnormal ECG Confirmed by YUNI GUALLPA, JOANNA ([id number]), editor city NADINE FERRER ([id number]) on 10/15/2021 8:01:34 AM Referred By: Confirmed By:JOANNA MORRISSEY MD
[2021-10-11 22:06] LABS: Bedside Glucose 278 mg/dL (74-106)
[2021-10-11] MEDS: Ipratropium/Albuterol Sulfate 3 ML AMPUL.NEB INHALATION (22:30)
[2021-10-11] MEDS: Nitroglycerin Oint 1 INCH PACKET 0.5 INCH TD (22:50)
[2021-10-11] MEDS: Potassium Chloride 10mEq/100mL 10 MEQ/100 ML IV.SOLN. 100 MEQ IV BOLUS ×2 (22:50→23:50)
[2021-10-11] MEDS: 0.9% Saline Lock 10 ML Syringe IV (22:50)
[2021-10-11] MEDS: Insulin Lispro 100 UNIT/ML INSULN.PEN SC (22:53)
--- NOTE | 2021-10-11 23:44 | NURSING ---
Dr Brown made aware of pt continued C/O chest & L arm pain, new orders received.
[2021-10-11] MEDS: Ketorolac 15 MG/ML Vial IV (23:50)
[2021-10-12] VITALS (12 sets, daily range): BP systolic 114–167; BP diastolic 47–86; PULSE 60–64; RESP 12–22; TEMP 35.7–36.6; O2SAT 95–98; BMI 35.3
[2021-10-12] MEDS: Potassium Chloride 10mEq/100mL 10 MEQ/100 ML IV.SOLN. 100 MEQ IV BOLUS ×2 (02:02→04:01)
--- NOTE | 2021-10-12 02:42 | RAD.NOTE ---
Dr Brown made aware of pt continued C/O chest pain, new order received
[2021-10-12] MEDS: Morphine 2 MG/ML Syringe 1 MG IV (02:52)
[2021-10-12] MEDS: 0.9% Saline Lock 10 ML Syringe IV (02:53)
[2021-10-12 03:40] LABS: Troponin-I HS 28 pg/mL (3.0-78.0)
[2021-10-12 06:23] LABS: Troponin-I HS 26 pg/mL (3.0-78.0)
[2021-10-12] MEDS: Insulin Lispro 100 UNIT/ML INSULN.PEN SC ×2 (06:53→11:57)
[2021-10-12 07:31] LABS: Bedside Glucose 191 mg/dL (74-106)
[2021-10-12] MEDS: Carvedilol 25 MG Tablet PO (09:26)
[2021-10-12] MEDS: Insulin U-500 UNITS/ML PEN 100 UNITS SC (09:27)
[2021-10-12] MEDS: Potassium Chloride Oral Tablet 20 MEQ PO (09:28)
[2021-10-12] MEDS: Furosemide 40 MG Tablet PO (09:29)
[2021-10-12] MEDS: Escitalopram Oxalate 10 MG Tablet PO (09:30)
[2021-10-12] MEDS: Enoxaparin 40 MG/0.4 ML Syringe SC (09:30)
[2021-10-12] MEDS: Magnesium Chloride 64 MG Delay Rel.Tablet PO (09:31)
[2021-10-12] MEDS: Clopidogrel Bisulfate 75 MG Tablet PO (09:31)
[2021-10-12] MEDS: Ranolazine 500 MG Tablet PO (09:35)
[2021-10-12] MEDS: Fenofibrate 48 MG Tablet PO (09:36)
[2021-10-12] MEDS: Ferrous Sulfate 325 MG Tablet PO (09:36)
[2021-10-12] MEDS: Gabapentin 300 MG Capsule PO (09:45)
[2021-10-12] MEDS: Finasteride 5 MG Tablet PO (10:03)
[2021-10-12 10:11] LABS: Troponin-I HS 27 pg/mL (3.0-78.0)
--- NOTE | 2021-10-12 11:58 | DCINST_ITS ---
Discharge Instructions Diet Discharge Diet: Low fat / Low cholesterol Activity Discharge Activity: Return to Normal Activity Dressing / Incision Call your doctor if you observe: Numbness or Tingling, Shortness of breath, Dizziness and Chest pain Follow Up Care Test Results: Test results from this visit will be discussed in further detail at your follow- up appointment, if applicable. Discharge Plan Admission Admit Date/Time: 10/11/21 20:04 Primary Reason for Your Visit: Conversion disorder Attending Provider: Mando Cheek Primary Care Provider: [facility] Consulting Providers: Lamar Brown Discharge Orders/Prescriptions Prescriptions: Continued clopidogrel [Plavix] 75 mg tablet 75 mg PO DAILY atorvastatin 80 MG tablet 80 mg PO QHS Rx Instructions: cholesterol aspirin 81 MG tablet 81 mg PO DAILY@0800 finasteride 5 MG tablet 5 mg PO DAILY escitalopram oxalate 10 MG tablet 10 mg PO DAILY cholecalciferol (vitamin D3) [Vitamin D3] 1,000 UNIT tablet 3,000 units PO DAILY Humulin R U-500 (Conc) Kwikpen 500 UNIT/ML insulin pen 100 unit SQ BID nitroglycerin 0.4 MG tablet, sublingual 0.4 mg sublingual Q5M PRN (Reason: Chest Pain) Qty: 30 0RF Rx Instructions: Place one tab under tongue every 5 minutes x 3 doses as needed pantoprazole 40 MG tablet 40 mg PO BID carvedilol 25 MG tablet 25 mg PO BID multivitamin Tablet 1 tab PO DAILY furosemide 40 mg Tablet 40 mg PO DAILY potassium chloride [Klor-Con M20] 20 mEq Tablet,Er Particles/Crystals 20 meq PO DAILY ranolazine 500 mg Tablet Extended Release 12 Hr 500 mg PO BID acetaminophen [Tylenol] 325 MG tablet 325 mg PO Q6H PRN PRN (Reason: Mild pain 1-3/Temp > 100.7 F) ferrous sulfate 325 mg (65 mg iron) tablet 325 mg PO BID Qty: 60 0RF tamsulosin 0.4 MG capsule 0.4 mg PO QHS semaglutide (weight loss) 0.5 mg/0.5 mL Pen Injector 0.5 mg SUBCUT QWEEK levetiracetam 500 mg Tablet 500 mg PO BID glucose 4 gram Tablet,Chewable 16 g PO Q15M PRN (Reason: Hypoglycemia) Rx Instructions: until symptoms of low blood sugar are controlled albuterol sulfate 90 mcg/actuation Hfa Aerosol Inhaler 1 - 2 puff INHALATION Q6H PRN (Reason: sob) guaifenesin 100 mg/5 mL Syrup 200 mg PO TID PRN (Reason: Cough) diclofenac sodium 1 % Gel 1 ea TOPICAL BID fenofibrate 54 mg Tablet 48 mg PO DAILY gabapentin 300 mg Capsule 300 mg PO BID magnesium 200 mg Tablet 400 mg PO BID Referrals / Follow Up: [facility] [Primary Care Provider] - In 1 Week Disposition Disposition (needs filled in before D/C Order can be placed): Home Health Service
--- NOTE | 2021-10-12 12:07 | PCM.DC.SUM ---
Documented by User: Candice Stafford NP, COOK[employer] CLEANER-C 10/12/21 12:47 Providers Date of Admission: 10/11/21 Date of Discharge: 10/12/21 Primary Care Physician: [facility] Reason For Visit: SUSPECTED CONVERSION, RECURRENT R SIDE Diagnosis Discharge Diagnosis (1) Conversion reaction: Status: Acute Code(s): F44.9 - Dissociative and conversion disorder, unspecified Medications at Discharge Home Medications aspirin 81 mg tablet,delayed release 81 mg PO DAILY@0800 health maintenance 06/11/18 atorvastatin 80 mg tablet 80 mg PO QHS cholesterol 06/11/18 cholecalciferol (vitamin D3) 25 mcg (1,000 unit) tablet (Vitamin D3) 3,000 units PO DAILY supplement 06/11/18 escitalopram oxalate 10 mg tablet 10 mg PO DAILY depression 06/11/18 finasteride 5 mg tablet 5 mg PO DAILY prostate 06/11/18 insulin regular hum U-500 conc 500 unit/mL(3 mL) subcut pen (Humulin R U-500 (Conc) Insulin Kwikpen) 100 unit SQ BID diabetes 06/11/18 nitroglycerin 0.4 mg sublingual tablet 0.4 mg sublingual Q5M PRN Chest Pain #30 TABLETS 07/22/18 pantoprazole 40 mg tablet,delayed release 40 mg PO BID GERD 05/18/20 acetaminophen 325 mg tablet (Tylenol) 325 mg PO Q6H PRN PRN Mild pain 1-3/Temp > 100.7 F 06/22/20 carvedilol 25 mg tablet 25 mg PO BID blood pressure 06/22/20 furosemide 40 mg tablet 40 mg PO DAILY FLUID 06/22/20 multivitamin 1 tab PO DAILY SUPPLEMENT 06/22/20 potassium chloride 20 mEq tablet,extended release(part/cryst) (Klor-Con M) 20 meq PO DAILY supplement 06/22/20 ranolazine 500 mg tablet,extended release,12 hr 500 mg PO BID chest pain 06/22/20 ferrous sulfate 325 mg (65 mg iron) tablet 325 mg PO BID #60 tabs 06/23/20 tamsulosin 0.4 mg capsule 0.4 mg PO QHS PROSTATE 08/10/20 clopidogrel 75 mg tablet (Plavix) 75 mg PO DAILY blood thinner 01/07/21 semaglutide (weight loss) 0.5 mg/0.5 mL subcutaneous pen injector 0.5 mg subcut QWEEK diabetes 02/24/21 albuterol sulfate 90 mcg/actuation aerosol inhaler 1 - 2 puff inhalation Q6H PRN sob 08/17/21 diclofenac sodium 1 % topical gel 1 ea topical BID 08/17/21 fenofibrate 54 mg tablet 48 mg PO DAILY 08/17/21 glucose 4 gram chewable tablet 16 g PO Q15M PRN Hypoglycemia 08/17/21 guaifenesin 100 mg/5 mL oral syrup 200 mg PO TID PRN Cough 08/17/21 levetiracetam 500 mg tablet 500 mg PO BID 08/17/21 gabapentin 300 mg capsule 300 mg PO BID 10/11/21 magnesium 200 mg tablet 400 mg PO BID 10/11/21 Hospital Course Operations None Procedures None Summary of Care Provided Hospital Course: Patient is a 71-year-old male admitted 10/11/21 due to left-sided hemiplegia, expressive aphasia. 1.? CVA ruled out-prior history of CVA with chronic aphasia and left-sided hemiplegia-multiple similar presentations with suspected acute conversion. Telestroke consulted on admission who also suspects conversion. On aspirin, statin, Plavix at baseline. Brain CT without acute finding. Head and neck CTA unremarkable. Recommend psychiatric follow-up for conversion. Follow-up with PCP in 1 week. Continue outpatient follow-up with neurology. 2. Chronic hypoxic respiratory failure secondary to chronic COPD-states he wears oxygen as needed at home.? Previous order per case management as 3 L with exertion and bleeds through with BiPAP nightly. 3. Chronic heart failure with preserved ejection fraction-continue home Lasix regimen.? Prior echocardiogram demonstrates an EF of 60%. 4. Chronic anemia/Iron deficiency anemia/thrombocytopenia-continue iron supplementation. Stable 5. CAD with history of CABG and stents/status post pacemaker placement-continue aspirin, statin, Plavix, carvedilol, Ranexa. 6. Type 2 diabetes mellitus-continue home insulin regimen. 7. Hypertension-stable, continue carvedilol, Lasix. 8. Hyperlipidemia-continue statin, fenofibrate. 9. EKATERINA-continue home BiPAP regimen. 10. BPH-continue Flomax, proscar. 11. History of seizure disorder- continue keppra. 12. Anxiety/depression-continue escitalopram regimen. 13.? GERD-continue PPI. Physical Exam Const alert and oriented x3 Constitutional Narrative: Speech difficulty-baseline Orientation / Consciousness: awake, oriented to person, oriented to place and oriented to time HEENT normocephalic and moist oral mucous membranes Eyes PERRL, EOMs intact bilaterally and conjunctivae normal Neck no lymphadenopathy Resp normal respiratory effort and clear to auscultation bilaterally Cardio regular rate, regular rhythm and no murmurs Peripheral Pulses: pulses 2+ throughout GI normal to inspection, nondistended, normoactive bowel sounds, non-tender and non-distended Extremity normal to inspection Skin no rashes or lesions noted Lesions: no lesions Rashes: no rashes Trauma: no lacerations or abrasions Neuro CN's II-XII intact bilaterally, no sensory deficits noted and deep tendon reflexes 2+ bilaterally Neuro Narrative: Aphasic intermittently at baseline, moving all extremities.? No sensory deficits. Psych mental status grossly normal and affect normal Patient seen and examined prior to discharge. Physical assessment as noted above. Patient is stable for discharge with follow up recommendations as noted above. This patient was seen by KELLY Dyson under the supervision of Dr. Cheek. Time spent examining patient, reviewing data and subsequent management of care: 25 Weight / BMI Weight Weight: 247 lb 9.266 oz Body Mass Index (BMI) 35.3 ABG / Lab / Microbiology Data Result Diagrams: 10/11/21 18:18 10/11/21 18:18 Laboratory: Laboratory Results - last 24 hr 10/11/21 18:18: WBC 4.7, RBC 3.52 L, Hgb 11.3 L, Hct 34.0 L, MCV 96.6 H, MCH 32.1 H, MCHC 33.2, RDW Std Deviation 49.7 H, RDW Coeff of Cinda 14.4, Plt Count 145 L, MPV 9.6, Immature Gran % (Auto) 0.200, Neut % (Auto) 64.8, Lymph % (Auto) 22.3, Cannon % (Auto) 8.4, Eos % (Auto) 4.1, Baso % (Auto) 0.2, Absolute Neuts (auto) 3.0, Absolute Lymphs (auto) 1.04, Nucleated RBC % 0 10/11/21 18:18: PT 14.5, INR 1.2, APTT 36.1 10/11/21 18:18: Sodium 138, Potassium 3.2 L, Chloride 102, Carbon Dioxide 31.0, Anion Gap 5, BUN 13, Creatinine 0.94, Estim Creat Clear Calc 74.42, Est GFR (MDRD) Af Amer 102, Est GFR (MDRD) Non-Af 84, BUN/Creatinine Ratio 13.9, Glucose 240 H, Calcium 8.0 L, Troponin I High Sens 25 10/11/21 18:18: Magnesium 1.5 L 10/11/21 21:39: POC Glucose 278 H 10/12/21 03:05: Troponin I High Sens 28 10/12/21 05:30: Troponin I High Sens 26 10/12/21 06:52: POC Glucose 191 H 10/12/21 09:16: Troponin I High Sens 27 Radiography Diagnostic Testing: Radiology Impression Head/Neck CTA 10/11/21 17:56 IMPRESSION: 1. No evidence of aneurysm or occluded arteries. 2. Essentially normal [place]. N.B. : The above Results were Read Back by Henrry Baron DO to Dr. Yadiel Guzman MD, and understanding confirmed on 10/11/2021 18:44:55 (ET). Electronically Signed: Henrry Baron DO at 18:49 EDT Reading Location ID and State: [employer] / [place] Tel [phone], Service support , ADDENDUM: 10/11/21 1856 IMPRESSION: 1. No evidence of aneurysm or occluded arteries. 2. Essentially normal [place]. N.B. : The above Results were Read Back by Henrry Baron DO to Dr. Yadiel Guzman MD, and understanding confirmed on 10/11/2021 18:44:55 (ET). Electronically Signed: Henrry Baron DO at 18:49 EDT Reading Location ID and State: [employer] [facility] [employer] Tel [phone], Service support , Brain CT 10/11/21 17:58 IMPRESSION: No acute intracranial or calvarial abnormality. No major interval change. Electronically Signed: Henrry Baron DO at 18:11 EDT Reading Location ID and State: [facility] / [place] Tel [phone], Service support , ADDENDUM: 10/11/21 1855 IMPRESSION: No acute intracranial or calvarial abnormality. No major interval change. N.B. : The above Results were Read Back by Henrry Baron DO to Dr. Yadiel Guzman MD, and understanding confirmed on 10/11/2021 18:48:46 (ET). Electronically Signed: Henrry Baron DO at 18:11 EDT Reading Location ID and State: [facility] / [place] Tel [phone], Service support , Chest X-Ray 10/11/21 18:38 IMPRESSION: No acute cardiopulmonary disease or interval change. Electronically Signed: Henrry Baron DO at 19:10 EDT Reading Location ID and State: [facility] / [place] Tel [phone], Service support , D/C Instructions Discharge Diet: Low fat / Low cholesterol Call your doctor if you observe: Numbness or Tingling, Shortness of breath, Dizziness and Chest pain Meaningful Use Info Meaningful Use Diagnoses (Choose all that apply): None applicable Discharge Plan Admission Admit Date/Time: 10/11/21 20:04 Primary Reason for Your Visit: Conversion disorder Attending Provider: Mando Cheek Primary Care Provider: [facility] Consulting Providers: Lamar Brown Discharge Orders/Prescriptions Prescriptions: Continued clopidogrel [Plavix] 75 mg tablet 75 mg PO DAILY atorvastatin 80 MG tablet 80 mg PO QHS Rx Instructions: cholesterol aspirin 81 MG tablet 81 mg PO DAILY@0800 finasteride 5 MG tablet 5 mg PO DAILY escitalopram oxalate 10 MG tablet 10 mg PO DAILY cholecalciferol (vitamin D3) [Vitamin D3] 1,000 UNIT tablet 3,000 units PO DAILY Humulin R U-500 (Conc) Kwikpen 500 UNIT/ML insulin pen 100 unit SQ BID nitroglycerin 0.4 MG tablet, sublingual 0.4 mg sublingual Q5M PRN (Reason: Chest Pain) Qty: 30 0RF Rx Instructions: Place one tab under tongue every 5 minutes x 3 doses as needed pantoprazole 40 MG tablet 40 mg PO BID carvedilol 25 MG tablet 25 mg PO BID multivitamin Tablet 1 tab PO DAILY furosemide 40 mg Tablet 40 mg PO DAILY potassium chloride [Klor-Con M20] 20 mEq Tablet,Er Particles/Crystals 20 meq PO DAILY ranolazine 500 mg Tablet Extended Release 12 Hr 500 mg PO BID acetaminophen [Tylenol] 325 MG tablet 325 mg PO Q6H PRN PRN (Reason: Mild pain 1-3/Temp > 100.7 F) ferrous sulfate 325 mg (65 mg iron) tablet 325 mg PO BID Qty: 60 0RF tamsulosin 0.4 MG capsule 0.4 mg PO QHS semaglutide (weight loss) 0.5 mg/0.5 mL Pen Injector 0.5 mg SUBCUT QWEEK levetiracetam 500 mg Tablet 500 mg PO BID glucose 4 gram Tablet,Chewable 16 g PO Q15M PRN (Reason: Hypoglycemia) Rx Instructions: until symptoms of low blood sugar are controlled albuterol sulfate 90 mcg/actuation Hfa Aerosol Inhaler 1 - 2 puff INHALATION Q6H PRN (Reason: sob) guaifenesin 100 mg/5 mL Syrup 200 mg PO TID PRN (Reason: Cough) diclofenac sodium 1 % Gel 1 ea TOPICAL BID fenofibrate 54 mg Tablet 48 mg PO DAILY gabapentin 300 mg Capsule 300 mg PO BID magnesium 200 mg Tablet 400 mg PO BID Referrals / Follow [facility]: [facility] [Primary Care Provider] - In 1 Week Disposition Disposition (needs filled in before D/C Order can be placed): Home Health Service Documented by User: Dr. Mando Cheek MD 10/12/21 15:50 Providers Date of Admission: 10/11/21 Reason For Visit: SUSPECTED CONVERSION, RECURRENT R SIDE Diagnosis Discharge Diagnosis (1) Conversion reaction: Status: Acute Code(s): F44.9 - Dissociative and conversion disorder, unspecified Medications at Discharge Home Medications aspirin 81 mg tablet,delayed release 81 mg PO DAILY@0800 health maintenance 06/11/18 atorvastatin 80 mg tablet 80 mg PO QHS cholesterol 06/11/18 cholecalciferol (vitamin D3) 25 mcg (1,000 unit) tablet (Vitamin D3) 3,000 units PO DAILY supplement 06/11/18 escitalopram oxalate 10 mg tablet 10 mg PO DAILY depression 06/11/18 finasteride 5 mg tablet 5 mg PO DAILY prostate 06/11/18 insulin regular hum U-500 conc 500 unit/mL(3 mL) subcut pen (Humulin R U-500 (Conc) Insulin Kwikpen) 100 unit SQ BID diabetes 06/11/18 nitroglycerin 0.4 mg sublingual tablet 0.4 mg sublingual Q5M PRN Chest Pain #30 TABLETS 07/22/18 pantoprazole 40 mg tablet,delayed release 40 mg PO BID GERD 05/18/20 acetaminophen 325 mg tablet (Tylenol) 325 mg PO Q6H PRN PRN Mild pain 1-3/Temp > 100.7 F 06/22/20 carvedilol 25 mg tablet 25 mg PO BID blood pressure 06/22/20 furosemide 40 mg tablet 40 mg PO DAILY FLUID 06/22/20 multivitamin 1 tab PO DAILY SUPPLEMENT 06/22/20 potassium chloride 20 mEq tablet,extended release(part/cryst) (Klor-Con M) 20 meq PO DAILY supplement 06/22/20 ranolazine 500 mg tablet,extended release,12 hr 500 mg PO BID chest pain 06/22/20 ferrous sulfate 325 mg (65 mg iron) tablet 325 mg PO BID #60 tabs 06/23/20 tamsulosin 0.4 mg capsule 0.4 mg PO QHS PROSTATE 08/10/20 clopidogrel 75 mg tablet (Plavix) 75 mg PO DAILY blood thinner 01/07/21 semaglutide (weight loss) 0.5 mg/0.5 mL subcutaneous pen injector 0.5 mg subcut QWEEK diabetes 02/24/21 albuterol sulfate 90 mcg/actuation aerosol inhaler 1 - 2 puff inhalation Q6H PRN sob 08/17/21 diclofenac sodium 1 % topical gel 1 ea topical BID 08/17/21 fenofibrate 54 mg tablet 48 mg PO DAILY 08/17/21 glucose 4 gram chewable tablet 16 g PO Q15M PRN Hypoglycemia 08/17/21 guaifenesin 100 mg/5 mL oral syrup 200 mg PO TID PRN Cough 08/17/21 levetiracetam 500 mg tablet 500 mg PO BID 08/17/21 gabapentin 300 mg capsule 300 mg PO BID 10/11/21 magnesium 200 mg tablet 400 mg PO BID 10/11/21 Hospital Course Summary of Care Provided Hospital Course: Patient is a 71-year-old male admitted 10/11/21 due to left-sided hemiplegia, expressive aphasia. 1.? CVA ruled out-prior history of CVA with chronic aphasia and left-sided hemiplegia-multiple similar presentations with suspected acute conversion. Telestroke consulted on admission who also suspects conversion. On aspirin, statin, Plavix at baseline. Brain CT without acute finding. Head and neck CTA unremarkable. Recommend psychiatric follow-up for conversion. Follow-up with PCP in 1 week. Continue outpatient follow-up with neurology. 2. Chronic hypoxic respiratory failure secondary to chronic COPD-states he wears oxygen as needed at home.? Previous order per case management as 3 L with exertion and bleeds through with BiPAP nightly. 3. Chronic heart failure with preserved ejection fraction-continue home Lasix regimen.? Prior echocardiogram demonstrates an EF of 60%. 4. Chronic anemia/Iron deficiency anemia/thrombocytopenia-continue iron supplementation. Stable 5. CAD with history of CABG and stents/status post pacemaker placement-continue aspirin, statin, Plavix, carvedilol, Ranexa. 6. Type 2 diabetes mellitus-continue home insulin regimen. 7. Hypertension-stable, continue carvedilol, Lasix. 8. Hyperlipidemia-continue statin, fenofibrate. 9. EKATERINA-continue home BiPAP regimen. 10. BPH-continue Flomax, proscar. 11. History of seizure disorder- continue keppra. 12. Anxiety/depression-continue escitalopram regimen. 13.? GERD-continue PPI. This patient was seen in conjunction with COOKER CLEANER, Candice. I have independently interviewed and examined the patient and reviewed pertinent history, examination findings, laboratory and plan of management. I have reviewed the note and agree with the documented findings with the few additional points. In brief, patient is 70-year-old gentleman with history of prior CVA with chronic left-sided hemiplegia, aphasia, dysarthria was admitted with concern of new stroke. Patient also has history of conversion disorder. Patient was admitted on PCU floor. On examination in the morning it was found patient does not have any new finding on the top of old stroke findings. On further review of medical record it seems patient was admitted before In May [address] with [address] finding[address] brain no acute finding. CTA head and neck shows no evidence of any occluded arteries. Patient cannot have MRI because of pacemaker. Acute new stroke/cerebral infarct ruled out. Multiple comorbidities include chronic hypoxic respiratory failure secondary to COPD, chronic HFpEF, chronic iron-deficiency anemia, CAD status post CABG stents and pacemaker, hypertension, dyslipidemia, EKATERINA on CPAP, BPH seizure disorder on Keppra anxiety and depression: No acute findings. Home medications continued Discharge medication reconciliation done. Discharge follow-up instructions completed. Discharge process discussed with the patient and all questions were answered to patient's satisfaction. Total time spent, exact 35 minutes on discharge meds reconciliation, examination, coordination of care with nurses and ancillary staff, review of imaging and blood test and discussion with the patient on follow-up instructions. I have discussed my assessment with COOKER CLEANERCandice and orders have been reviewed. Clinical Impression(s) from Imaging Studies Head/Neck CTA 10/11/21 17:56 IMPRESSION: 1. No evidence of aneurysm or occluded arteries. 2. Essentially normal [place]. Brain CT 10/11/21 17:58 IMPRESSION: No acute intracranial or calvarial abnormality. No major interval change. Henrry Baron DO at 18:11 EDT Reading Location ID and State: [employer] / [facility] [employer] Tel [phone], Service support , Chest X-Ray 10/11/21 18:38 IMPRESSION: No acute cardiopulmonary disease or interval change. Electronically Signed: Henrry Baron DO at 19:10 EDT Reading Location ID and State: [employer] / [employer] Tel [phone], Service support , Physical Exam Const alert and oriented x3 Constitutional Narrative: Speech difficulty-baseline Orientation / Consciousness: awake, oriented to person, oriented to place and oriented to time HEENT normocephalic and moist oral mucous membranes Eyes PERRL, EOMs intact bilaterally and conjunctivae normal Neck no lymphadenopathy Resp normal respiratory effort and clear to auscultation bilaterally Cardio regular rate, regular rhythm and no murmurs Peripheral Pulses: pulses 2+ throughout GI normal to inspection, nondistended, normoactive bowel sounds, non-tender and non-distended Extremity normal to inspection Skin no rashes or lesions noted Lesions: no lesions Rashes: no rashes Trauma: no lacerations or abrasions Neuro CN's II-XII intact bilaterally, no sensory deficits noted and deep tendon reflexes 2+ bilaterally Neuro Narrative: Aphasic intermittently at baseline, moving all extremities.? No sensory deficits. Psych mental status grossly normal and affect normal Patient seen and examined prior to discharge. Physical assessment as noted above. Patient is stable for discharge with follow up recommendations as noted above. This patient was seen by KELLY Dyson under the supervision of Dr. Cheek. Time spent examining patient, reviewing data and subsequent management of care: 25 Physical Exam Narrative Seen and examined on the day of discharge. Patient admitted with left-sided weakness and trouble walking maintaining balance. 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 General: Alert, Oriented x3, Cooperative HEENT: Atraumatic, PERRLA, EOMI, Normocephalic Oral: No Gingival or Mucosal Lesions/ Ulcerations Neck: Supple, No JVD, Negative Carotid Bruits Lungs: Air entry diminished in bilateral lung bases. No crepitation/rhonchi Cardiovascular: paced Rhythm, Normal S1, Normal S2, No murmurs Abdomen: Bowel Sounds Present, Soft, Non Tender, Non-Distended : No renal angle tenderness. No suprapubic tenderness. Extremities: No edema, Capillary Refill Less than 3 Seconds Skin: No rashes, No breakdown Musculoskeletal: ROM restricted over left upper and lower extremity. Weakness of left upper and lower extremity 3-4/5 at multiple joints. No Tenderness to Palpation of Joints or Extremities Neurological: Mild to moderate language deficit, dysarthria most probably chronic. Psych/Mental Status: Flat affect. ABG / Lab / Microbiology Data Result Diagrams: 10/11/21 18:18 10/11/21 18:18 Discharge Plan Admission Admit Date/Time: 10/11/21 20:04 Primary Reason for Your Visit: Conversion disorder Attending Provider: Mando Cheek Primary Care Provider: [facility] Consulting Providers: Lamar Brown Discharge Orders/Prescriptions Prescriptions: Continued clopidogrel [Plavix] 75 mg tablet 75 mg PO DAILY atorvastatin 80 MG tablet 80 mg PO QHS Rx Instructions: cholesterol aspirin 81 MG tablet 81 mg PO DAILY@0800 finasteride 5 MG tablet 5 mg PO DAILY escitalopram oxalate 10 MG tablet 10 mg PO DAILY cholecalciferol (vitamin D3) [Vitamin D3] 1,000 UNIT tablet 3,000 units PO DAILY Humulin R U-500 (Conc) Kwikpen 500 UNIT/ML insulin pen 100 unit SQ BID nitroglycerin 0.4 MG tablet, sublingual 0.4 mg sublingual Q5M PRN (Reason: Chest Pain) Qty: 30 0RF Rx Instructions: Place one tab under tongue every 5 minutes x 3 doses as needed pantoprazole 40 MG tablet 40 mg PO BID carvedilol 25 MG tablet 25 mg PO BID multivitamin Tablet 1 tab PO DAILY furosemide 40 mg Tablet 40 mg PO DAILY potassium chloride [Klor-Con M20] 20 mEq Tablet,Er Particles/Crystals 20 meq PO DAILY ranolazine 500 mg Tablet Extended Release 12 Hr 500 mg PO BID acetaminophen [Tylenol] 325 MG tablet 325 mg PO Q6H PRN PRN (Reason: Mild pain 1-3/Temp > 100.7 F) ferrous sulfate 325 mg (65 mg iron) tablet 325 mg PO BID Qty: 60 0RF tamsulosin 0.4 MG capsule 0.4 mg PO QHS semaglutide (weight loss) 0.5 mg/0.5 mL Pen Injector 0.5 mg SUBCUT QWEEK levetiracetam 500 mg Tablet 500 mg PO BID glucose 4 gram Tablet,Chewable 16 g PO Q15M PRN (Reason: Hypoglycemia) Rx Instructions: until symptoms of low blood sugar are controlled albuterol sulfate 90 mcg/actuation Hfa Aerosol Inhaler 1 - 2 puff INHALATION Q6H PRN (Reason: sob) guaifenesin 100 mg/5 mL Syrup 200 mg PO TID PRN (Reason: Cough) diclofenac sodium 1 % Gel 1 ea TOPICAL BID fenofibrate 54 mg Tablet 48 mg PO DAILY gabapentin 300 mg Capsule 300 mg PO BID magnesium 200 mg Tablet 400 mg PO BID Referrals / Follow Up: [facility] [Primary Care Provider] - In 1 Week Disposition Disposition (needs filled in before D/C Order can be placed): Home Health Service
[2021-10-12 12:31] LABS: Bedside Glucose 174 mg/dL (74-106)
[2021-10-12] MEDS: Ipratropium/Albuterol Sulfate 3 ML AMPUL.NEB INHALATION (13:24)
--- NOTE | 2021-10-12 13:41 | CM.UR ---
Addendum entered by Vida Karimi 10/12/21 13:56: Pt/ declined [facility]HC list as they state they only want [facility] at this time. Obdulia BERRY CM Original Note: Pt/ state no concerns with going home today and states they would like [facility] set up for SN, PT/OT, order placed and this RN CM will f/u with [facility] on thursday. Referral sent via careport. Pt/ also provided with mental health counseling resources for [facility]. Pt/ voice no further questions/concerns/needs. Obdulia BERRY CM
--- NOTE | 2021-10-14 09:29 | CASEMGMT ---
Addendum entered by Vida Karimi 10/14/21 14:36: [facility] denied pt but this RN CM received a message from Maggi at [facility] and she states they are able to accept pt at this time and that the manager business continuity RN over the weekend 'accidentally declined pt.' Per Maggi, they have already spoken with pt/ regarding acceptance. Obdulia BERRY CM Addendum entered by Vida Karimi 10/14/21 13:45: This RN CM was finally able to reach pt's and she is updated on [facility] denial and states would like [facility]. Referral sent via careport to [place] [facility]. CM to follow. Obdulia BERRY CM Addendum entered by Vida Karimi 10/14/21 11:50: Attempted to reach pt/ again regarding [facility] denial, did not answer her phone but pt did but states he is at [place] for appt and wants to make decision, but is not with him at this moment. Pt states 'just call her cell phone' and this RN CM advised pt that have attempted 's cell mulitiple times without success. CM to attempt to reach again later. Obdulia BERRY CM Original Note: Message from [facility] via careport that they are unable to accept pt at this time d/t 'out of network'. This RN CM attempted to call pt/ without success and no way to leave a message regarding same. Will attempt again later. Obdulia BERRY CM
== END 2021-10-12 12:00 | disposition home health service (06) ==
LOC: ED 19:51 → PCU 20:20
PROVIDERS: Admitting Provider Family Medicine; Emergency Provider Emergency Medicine; Visit Provider Internal Medicine
DX: I11.0 Hypertensive heart disease with heart failure (principal); I69.354 Hemiplegia and hemiparesis following cerebral infarction affecting left non-dominant side; J44.9 Chronic obstructive pulmonary disease, unspecified; I50.32 Chronic diastolic (congestive) heart failure; J96.11 Chronic respiratory failure with hypoxia; G40.909 Epilepsy, unspecified, not intractable, without status epilepticus; D69.6 Thrombocytopenia, unspecified; Z79.4 Long term (current) use of insulin; E11.9 Type 2 diabetes mellitus without complications; Z86.711 Personal history of pulmonary embolism; F41.9 Anxiety disorder, unspecified; K21.9 Gastro-esophageal reflux disease without esophagitis; D50.9 Iron deficiency anemia, unspecified; E78.5 Hyperlipidemia, unspecified; Z87.891 Personal history of nicotine dependence; I25.10 Atherosclerotic heart disease of native coronary artery without angina pectoris; Z79.82 Long term (current) use of aspirin; G51.0 Bell's palsy; Z79.02 Long term (current) use of antithrombotics/antiplatelets; E66.9 Obesity, unspecified; G47.33 Obstructive sleep apnea (adult) (pediatric); R47.1 Dysarthria and anarthria; Z68.36 Body mass index [BMI] 36.0-36.9, adult; Z79.899 Other long term (current) drug therapy; I69.320 Aphasia following cerebral infarction; N40.0 Benign prostatic hyperplasia without lower urinary tract symptoms; Z95.0 Presence of cardiac pacemaker
CPT/HCPCS: 36415; 70450; 70496; 70498; 71045; 80048; 82962; 83735; 84484; 85025; 85610; 85730; 92610; 93005; 94002; 94003; 94640; 94762; 96365; 96366; 96367; 96372; 96375; 97162; 97166; 99218; 99251; 99285; Q9967; A4216; G0378; G0463

== ENCOUNTER 2021-11-15 15:04 | Emergency (ER) | payer OTHER, SELFPAY ==
[2021-11-15 15:07] VITALS: BP 141/7; PULSE 60; RESP 18; TEMP 36.7; O2SAT 100; BMI 35.2
[2021-11-15 15:18] VITALS: BP 141/62; PULSE 62; RESP 18; O2SAT 100
--- NOTE | 2021-11-15 15:32 | CT_ITS ---
EXAM: CT HEAD WITHOUT INTRAVENOUS CONTRAST CLINICAL INDICATION: Altered Mental Status TECHNIQUE: Multiple axial images were obtained of the head without intravenous contrast. This CT exam was performed using one or more of the following dose reduction techniques: automated exposure control, adjustment of the mA and/or kV according to patient size, and/or use of iterative reconstruction technique. This report was created using [employer] report generation technology. COMPARISON: CT Head dated 10/11/2021 FINDINGS: BRAIN AND EXTRA-AXIAL SPACES: Areas of diminished white matter density noted within both cerebral hemispheres suggestive of chronic microvascular change. Prominence of the cortical sulci and ventricles related to volume loss change. No intra- or extra-axial hemorrhage. No evidence of acute infarct. No intracranial mass or mass effect. There is preservation of the nagy/white matter interface. Posterior fossa structures are unremarkable. Basal cisterns are patent. BONES/JOINTS: Normal. No discrete lytic or blastic abnormalities. SINUSES: Unremarkable as visualized. No acute sinusitis. MASTOID AIR CELLS: Normal. Clear. ORBITS: Visualized globes, extraocular muscles, optic nerves and retrobulbar fat appear unremarkable. CT/Brain/Head without Contrast IMPRESSION: 1. No acute intracranial abnormality. 2. Senescent changes. Electronically Signed: Robert Kulkarni MD at 16:31 EDT ,
--- NOTE | 2021-11-15 15:38 | EDS_ITS ---
HPI History of Present Illness Chief Complaint: Alt LOC Narrative Narrative: Patient with past medical history of pacemaker, coronary artery disease, obstructive sleep apnea, chronic respiratory failure, wears nasal cannula oxygen as needed according to his presents with syncope and mental status change. His history and physical is limited secondary to his condition. According to his , he has had several syncopal episodes in the past and he has these spells where he will pass out for few minutes. He was at pulmonary rehabilitation 4 days ago and had another one of his spells. They only last a few minutes, but afterwards she states that sometimes he cannot talk. He has been seen in the emergency department previously with strokelike symptoms. According to his EMR, he has had hemorrhage from tPA, but was also diagnosed with conversion disorder. Their main concern is that while home health was visiting him today 2 hours ago he was unresponsive. 911 was called. He is now grunting and intermittently speaking saying that he has chest pain. He has not had any fevers or cough, no nausea or vomiting recently. [facility] Medical History Abnormal EKG Anemia Atherosclerotic heart disease ione coronary artery w/angina pectoris BiPAP (biphasic positive airway pressure) dependence Chest pain Chronic respiratory failure Congestive heart failure (CHF) Conversion reaction COPD (chronic obstructive pulmonary disease) Diabetes DM type 2 (diabetes mellitus, type 2) Essential (primary) hypertension Former smoker History of fractured rib History of TIAs Hyperlipidemia Myocardial infarct Obesity On home oxygen therapy EKATERINA (obstructive sleep apnea) Pacemaker Pacemaker battery depletion Pulmonary embolism Sick sinus syndrome Stroke/cerebrovascular accident Wears hearing aid in both ears Home Medications aspirin 81 mg tablet,delayed release 81 mg PO DAILY@0800 health maintenance 06/11/18 [History Last Taken 06/07/21] atorvastatin 80 mg tablet 80 mg PO QHS cholesterol 06/11/18 [History Last Taken 06/06/21] cholecalciferol (vitamin D3) 25 mcg (1,000 unit) tablet (Vitamin D3) 3,000 units PO DAILY supplement 06/11/18 [History Last Taken 06/06/21] escitalopram oxalate 10 mg tablet 10 mg PO DAILY depression 06/11/18 [History Last Taken 06/07/21] finasteride 5 mg tablet 5 mg PO DAILY prostate 06/11/18 [History Last Taken 06/07/21] insulin regular hum U-500 conc 500 unit/mL(3 mL) subcut pen (Humulin R U-500 (Conc) Insulin Kwikpen) 100 unit SQ BID diabetes 06/11/18 [History Last Taken 06/06/21] nitroglycerin 0.4 mg sublingual tablet 0.4 mg sublingual Q5M PRN Chest Pain #30 TABLETS 07/22/18 [Rx Last Taken 01/17/20] pantoprazole 40 mg tablet,delayed release 40 mg PO BID GERD 05/18/20 [History Last Taken 06/07/21] acetaminophen 325 mg tablet (Tylenol) 325 mg PO Q6H PRN PRN Mild pain 1-3/Temp > 100.7 F 06/22/20 [History Last Taken 06/07/21] carvedilol 25 mg tablet 25 mg PO BID blood pressure 06/22/20 [History Last Taken 06/07/21] furosemide 40 mg tablet 40 mg PO DAILY FLUID 06/22/20 [History Last Taken 06/07/21] multivitamin 1 tab PO DAILY SUPPLEMENT 06/22/20 [History Last Taken 06/07/21] potassium chloride 20 mEq tablet,extended release(part/cryst) (Klor-Con M) 20 meq PO DAILY supplement 06/22/20 [History Last Taken 06/07/21] ranolazine 500 mg tablet,extended release,12 hr 500 mg PO BID chest pain 06/22/20 [History Last Taken 06/07/21] ferrous sulfate 325 mg (65 mg iron) tablet 325 mg PO BID #60 tabs 06/23/20 [Rx Last Taken 06/07/21] tamsulosin 0.4 mg capsule 0.4 mg PO QHS PROSTATE 08/10/20 [History Last Taken 06/06/21] clopidogrel 75 mg tablet (Plavix) 75 mg PO DAILY blood thinner 01/07/21 [History Last Taken 06/07/21] semaglutide (weight loss) 0.5 mg/0.5 mL subcutaneous pen injector 0.5 mg subcut QWEEK diabetes 02/24/21 [History Last Taken Unknown] albuterol sulfate 90 mcg/actuation aerosol inhaler 1 - 2 puff inhalation Q6H PRN sob 08/17/21 [History Last Taken Unknown] diclofenac sodium 1 % topical gel 1 ea topical BID 08/17/21 [History Last Taken Unknown] fenofibrate 54 mg tablet 48 mg PO DAILY 08/17/21 [History Last Taken Unknown] glucose 4 gram chewable tablet 16 g PO Q15M PRN Hypoglycemia 08/17/21 [History Last Taken Unknown] guaifenesin 100 mg/5 mL oral syrup 200 mg PO TID PRN Cough 08/17/21 [History Last Taken Unknown] levetiracetam 500 mg tablet 500 mg PO BID 08/17/21 [History Last Taken Unknown] gabapentin 300 mg capsule 300 mg PO BID 10/11/21 [History Last Taken Unknown] magnesium 200 mg tablet 400 mg PO BID 10/11/21 [History Last Taken Unknown] Allergy/AdvReac Type Severity Reaction Status Date / Time ezetimibe Allergy Unknown Verified 10/11/21 19:10 Fish Containing Products Allergy Unknown Verified 10/11/21 19:10 glyburide Allergy Unknown Verified 10/11/21 19:10 isosorbide Allergy PT UNSURE Verified 10/11/21 19:10 OF REACTION lisinopril Allergy Unknown Verified 10/11/21 19:10 metformin Allergy Nausea Verified 10/11/21 19:10 metoprolol Allergy Unknown Verified 10/11/21 19:10 simvastatin Allergy Unknown Verified 10/11/21 19:10 gabapentin AdvReac Other Verified 10/11/21 19:10 Family History Father No problems noted. Surgical History H/O coronary artery bypass surgery History of cholecystectomy History of coronary artery stent placement History of knee replacement procedure of left knee History of permanent cardiac pacemaker placement (01/14/21) Social History household members: spouse Smoking Status: Former smoker details: Unknown substance use type: does not use ROS ROS ED ROS Narrative Limited secondary to patient's conversion disorder. Majority of review of systems comes from . Constitutional: No fever, no chills. HEENT: No sore throat. No neck pain. No loss of vision. No rhinorrhea. Cardiovascular: Positive chest pain. No palpitations. No pedal edema. Respiratory: No cough, no shortness of breath. Abdominal: No abdominal pain. No nausea. No vomiting. Genitourinary: No dysuria. No hematuria. Musculoskeletal: No myalgias. No arthralgias. Neurologic: No headaches. No dizziness. No lightheadedness. Positive syncopal episodes. Skin: No rash. No change in color. Psychiatric: No depression. No anxiety. EXAM Physical Exam Narrative Exam Narrative: Afebrile. Vital signs noted. HEENT: Normocephalic. Atraumatic. PERRL, EOMI. Neck soft and supple. No point tenderness or step off. Cardiovascular: Regular rate and rhythm. No murmurs, rubs, or gallops appreciated. Respiratory: No tachypnea. Lungs clear to auscultation bilaterally. Gastrointestinal: Abdomen soft, nontender, with normoactive bowel sounds. No rebound or guarding. Neurological: Awake. Alert. Nonfocal, nonlateralizing. Not moving left arm as much, but will wiggle fingers on occasion on left side. Grunting, but saying pain, and pointing to left pectoral area. Skin: No rash. Normal color. No pallor. Musculoskeletal: No pedal edema. Full range of motion extremities. Const Vital Signs: 11/15/21 15:07 11/15/21 15:18 Temperature 98.0 F Temperature Source Temporal Pulse Rate 60 62 Respiratory Rate 18 18 Blood Pressure 141/7 H 141/62 H Blood Pressure Mean 51 88 Pulse Ox 100 100 Oxygen Delivery Method Room Air Nasal Cannula Oxygen Flow Rate (L/min) 3 MDM MDM MDM Narrative Medical decision making narrative: Comprehensive work-up was pursued. EKG interpreted by myself shows a paced rhythm at [address] changes. CBC is grossly normal save for hemoglobin of 11.7 and stable, hematocrit 34.9. Platelet count marginally low at 132. Glucose elevated at 243, but normal anion gap of 5. BUN elevated at 22 with a creatinine of 1.0. Lactic acid normal at 2.0. Initial high-sensitivity troponin 13, second 15, for delta troponin of 2. Chest x-ray interpreted by myself shows no acute process. CT of the brain shows no acute hemorrhage or mass. I reviewed his EMR, and once again, he has had history of conversion disorder. His states that these have been happening for quite some time where he will be able to talk or move his left arm for hours or up to days, then they will spontaneously resolve. I do feel that that is part of his conversion disorder. I feel he can be discharged safely home. There was a time where the patient did want to leave prior to his second troponin, but had agreed to stay. At this point in time, given his symptoms of chest pain, I feel he can be discharged as his delta troponin is negative. Return instructions were reviewed. Disposition is discharged home in stable condition. Lab Data Attestation: I reviewed the patient's lab results. Labs: Laboratory Results - last 24 hr 11/15/21 11/15/21 11/15/21 15:40 15:40 15:40 WBC 5.2 RBC 3.57 L Hgb 11.7 L Hct 34.9 L MCV 97.8 H MCH 32.8 H MCHC 33.5 RDW Std Deviation 48.2 H RDW Coeff of Cinda 13.4 Plt Count 132 L MPV 10.3 Immature Gran % (Auto) 0.200 Neut % (Auto) 74.7 H Lymph % (Auto) 16.8 L [place] % (Auto) 6.4 Eos % (Auto) 1.5 Baso % (Auto) 0.4 Absolute Neuts (auto) 3.9 Absolute Lymphs (auto) 0.87 Nucleated RBC % 0 Sodium 142 Potassium 4.7 Chloride 107 Carbon Dioxide 30.0 Anion Gap 5 BUN 22 H Creatinine 1.06 Estim Creat Clear Calc 70.16 Est GFR (MDRD) Af Amer 89 Est GFR (MDRD) Non-Af 73 BUN/Creatinine Ratio 20.8 H Glucose 243 H Lactic Acid 2.0 Calcium 8.6 Total Bilirubin 0.70 AST 22 ALT 26 Alkaline Phosphatase 80 Troponin I High Sens 13 Total Protein 7.0 Albumin 3.3 Globulin 3.7 Albumin/Globulin Ratio 0.9 Urine Color Urine Clarity Urine pH Ur Specific [place] Urine Protein Urine Glucose (UA) Urine Ketones Urine Occult Blood Urine Nitrite Urine Bilirubin Urine Urobilinogen Ur Leukocyte Esterase Urine RBC Urine WBC Ur Squamous Epith Cells Urine Bacteria Urine Mucus 11/15/21 11/15/21 15:40 17:51 WBC RBC Hgb Hct MCV MCH MCHC RDW Std Deviation RDW Coeff of Cinda Plt Count MPV Immature Gran % (Auto) Neut % (Auto) Lymph % (Auto) [place] % (Auto) Eos % (Auto) Baso % (Auto) Absolute Neuts (auto) Absolute Lymphs (auto) Nucleated RBC % Sodium Potassium Chloride Carbon Dioxide Anion Gap BUN Creatinine Estim Creat Clear Calc Est GFR (MDRD) Af Amer Est GFR (MDRD) Non-Af BUN/Creatinine Ratio Glucose Lactic Acid Calcium Total Bilirubin AST ALT Alkaline Phosphatase Troponin I High Sens 15 Total Protein Albumin Globulin Albumin/Globulin Ratio Urine Color Yellow Urine Clarity Clear Urine pH 6.0 Ur Specific [place] 1.015 Urine Protein Negative Urine Glucose (UA) 1000 H Urine Ketones Negative Urine Occult Blood Negative Urine Nitrite Negative Urine Bilirubin Negative Urine Urobilinogen Normal Ur Leukocyte Esterase 25 H Urine RBC 0 SEEN Urine WBC 5-10 SEEN Ur Squamous Epith Cells 0-5 SEEN Urine Bacteria 4+ Urine Mucus 0 SEEN Radiography Diagnostic Testing: Clinical Impression(s) from Imaging Studies Brain CT 11/15/21 15:32 IMPRESSION: 1. No acute intracranial abnormality. 2. Senescent changes. Electronically Signed: Robert Kulkarni MD at 16:31 EDT , Chest X-Ray 11/15/21 16:18 IMPRESSION: There are no acute findings. Electronically Signed: Harjit Perry MD at 16:33 EDT , Discharge Plan Triage Chief Complaint: Alt LOC Other Complaint: Chest Pain ED Provider: Adolfo Quevedo Dx/Rx/DC Orders Clinical Impression: Syncope, Acute on chronic alteration in mental status, Conversion disorder, Chest pain Instructions: ED ALOC, ED Chest Pain, Uncertain Cause, ED Fainting, Uncertain Cause, ED Conversion Reaction Prescriptions: No Action clopidogrel [Plavix] 75 mg tablet 75 mg PO DAILY atorvastatin 80 MG tablet 80 mg PO QHS Rx Instructions: cholesterol aspirin 81 MG tablet 81 mg PO DAILY@0800 finasteride 5 MG tablet 5 mg PO DAILY escitalopram oxalate 10 MG tablet 10 mg PO DAILY cholecalciferol (vitamin D3) [Vitamin D3] 1,000 UNIT tablet 3,000 units PO DAILY Humulin R U-500 (Conc) Kwikpen 500 UNIT/ML insulin pen 100 unit SQ BID nitroglycerin 0.4 MG tablet, sublingual 0.4 mg sublingual Q5M PRN (Reason: Chest Pain) Qty: 30 0RF Rx Instructions: Place one tab under tongue every 5 minutes x 3 doses as needed pantoprazole 40 MG tablet 40 mg PO BID carvedilol 25 MG tablet 25 mg PO BID multivitamin Tablet 1 tab PO DAILY furosemide 40 mg Tablet 40 mg PO DAILY potassium chloride [Klor-Con M20] 20 mEq Tablet,Er Particles/Crystals 20 meq PO DAILY ranolazine 500 mg Tablet Extended Release 12 Hr 500 mg PO BID acetaminophen [Tylenol] 325 MG tablet 325 mg PO Q6H PRN PRN (Reason: Mild pain 1-3/Temp > 100.7 F) ferrous sulfate 325 mg (65 mg iron) tablet 325 mg PO BID Qty: 60 0RF tamsulosin 0.4 MG capsule 0.4 mg PO QHS semaglutide (weight loss) 0.5 mg/0.5 mL Pen Injector 0.5 mg SUBCUT QWEEK levetiracetam 500 mg Tablet 500 mg PO BID glucose 4 gram Tablet,Chewable 16 g PO Q15M PRN (Reason: Hypoglycemia) Rx Instructions: until symptoms of low blood sugar are controlled albuterol sulfate 90 mcg/actuation Hfa Aerosol Inhaler 1 - 2 puff INHALATION Q6H PRN (Reason: sob) guaifenesin 100 mg/5 mL Syrup 200 mg PO TID PRN (Reason: Cough) diclofenac sodium 1 % Gel 1 ea TOPICAL BID fenofibrate 54 mg Tablet 48 mg PO DAILY gabapentin 300 mg Capsule 300 mg PO BID magnesium 200 mg Tablet 400 mg PO BID Primary Care Provider: Hospital,MD Referrals: Hospital,MD [Primary Care Provider] - Disposition Disposition: Home, Self Care
--- NOTE | 2021-11-15 15:40 | EKG12_ITS ---
Test Reason : CP Blood Pressure : / mmHG Vent. Rate : 060 BPM Atrial Rate : 059 BPM P-R Int : 000 ms QRS Dur : 192 ms QT Int : 520 ms P-R-T Axes : 088 -64 104 degrees QTc Int : 520 ms Suspect unspecified pacemaker failure Ventricular-paced rhythm Abnormal ECG Confirmed by PADILLA GUALLPA, CALI ([id number]), sound editor NADINE FERRER ([id number]) on 11/18/2021 10:21:11 AM Referred By: Confirmed By:CALI CAUSEY MD
[2021-11-15] MEDS: 0.9% Normal Saline 1,000 ML 1000 ML IV (15:45)
[2021-11-15 15:46] LABS: Mucous, Urine 0 SEEN /hpf (<or=2+); Red Blood Cells-Urine 0 SEEN /hpf (0-5)
--- NOTE | 2021-11-15 15:47 | ED.RN ---
[employer] pacemaker interrogated.
[2021-11-15 15:53] LABS: Absolute Lymphocyte Count 0.87 X10^3/uL (0.83-4.51); Absolute Neutrophil Count 3.9 X10^3/uL (2.0-7.7); Basophil# 0.02 X10^3/uL; Basophil% 0.4 % (0-1); Eosinophil# 0.08 X10^3/uL; Eosinophils% 1.5 % (0-5); Hematocrit 34.9 % (40-54); Hemoglobin 11.7 g/dL (13.0-16.5); Lymphocyte # 0.87 X10^3/ul (0.83-4.51); Lymphocyte % 16.8 % (19-41); Mean Corp Hgb Conc 33.5 g/dL (32-36); Mean Corpuscular Hgb 32.8 pg (27.0-32.0); Mean Corpuscular Volume 97.8 fL (80-94); Mean Platelet Vol. 10.3 fl (6.2-12.0); Monocyte# 0.33 X10^3/uL; Monocyte% 6.4 % (0-10); NRBC Flagged by Analyzer 0 % (0-5); Neutrophil # 3.87 X10^3/uL (2.7-7.7); Neutrophil % 74.7 % (47-70); Platelet Count 132 K/mm3 (150-450); RBC Distribution Width CV 13.4 % (11.6-14.6); RBC Distribution Width SD 48.2 fl (35.1-43.9); Red Blood Count 3.57 M/mm3 (4.6-6.2); White Blood Count 5.2 K/mm3 (4.4-11.0)
[2021-11-15 15:54] LABS: Color, Urine Yellow (Yellow); Glucose, Dipstick 1000 mg/dl (Normal); Ketone-Dipstick Negative (Negative); Leukocyte Esterase-Dipstick 25 /ul (Negative); Nitrite-Dipstick Negative (Negative); Occult Blood-Urine Negative /ul (Negative); Protein-Dipstick Negative (Negative); Specific Gravity, Urine 1.015 (1.002-1.030); Urine Bilirubin Dipstick Negative (Negative); Urine Clarity Clear (Clear); Urine Urobilinogen Normal (Normal)
[2021-11-15 16:04] LABS: Bacteria 4+ /hpf (None Seen); Squamous Epithelial Cells - UA 0-5 SEEN /hpf (0-5); White Blood Cells 5-10 SEEN /hpf (0-5)
[2021-11-15 16:10] LABS: ALB/GLOB Ratio 0.9 RATIO (0.9-2.4); AST(SGOT) 22 U/L (15-37); Alanine Aminotransfer ALT/SGPT 26 U/L (16-61); Albumin, Serum 3.3 g/dL (3.2-5.0); Alkaline Phosphatase 80 U/L (45-117); Anion Gap 5 (5-15); BUN 22 mg/dL (7-18); BUN/Creat Ratio 20.8 RATIO (10-20); Calcium,Total 8.6 mg/dL (8.5-10.1); Chloride 107 mmol/L (98-107); Creatinine, Serum 1.06 mg/dL (0.70-1.30); EST Glomerular Filtration Rate 73 mL/min (>60); Est Glom Filt Rate - Afr Amer 89 mL/min (>60); Estimated Creatinine Clearance 70.16 ml/min; Globulin 3.7 g/dL (2.2-4.2); Glucose 243 mg/dL (74-106); Potassium 4.7 mmol/L (3.5-5.1); Sodium Level 142 mmol/L (136-145); Troponin-I HS (w/2H Reflex) 13 pg/mL (3.0-78.0)
--- NOTE | 2021-11-15 16:18 | RAD_ITS ---
STUDY: X-RAY CHEST REASON FOR EXAM: Male, 71 years old. Chest pain TECHNIQUE: XR Chest 1 View COMPARISON: 8.. FINDINGS: There is atherosclerotic calcification of the aortic arch with tortuosity. There are diffuse degenerative changes of the visualized thoracic spine. There is degenerative osteoarthritis of the bilateral shoulders. Multiple median sternotomy wires are noted consistent for cardiac surgery. There is a left sided pacemaker batterypack. There is a metal sideplate transfixing the left ribs. There are cortical screws holding the plate in place. There is borderline cardiomegaly. Normal mediastinum and cata. Normal visualized pulmonary arteries. There is no demonstrated abnormality of the visualized soft tissue structures of the upper abdomen. RAD/Chest 1 View (Portable) IMPRESSION: There are no acute findings. Electronically Signed: Harjit Perry MD at 16:33 EDT ,
[2021-11-15 17:47] LABS: Reflex Troponin-HS? (from REC) Y
[2021-11-15 18:19] LABS: Troponin-I HS 15 pg/mL (3.0-78.0)
[2021-11-15 19:45] LABS: Reflex Lactate? Y
== END 2021-11-15 19:26 | disposition home or self-care (01) ==
PROVIDERS: Emergency Provider Emergency Medicine; Visit Provider Emergency Medicine
DX: R55 Syncope and collapse (principal); J44.9 Chronic obstructive pulmonary disease, unspecified; I11.0 Hypertensive heart disease with heart failure; I50.9 Heart failure, unspecified; E11.65 Type 2 diabetes mellitus with hyperglycemia; R07.9 Chest pain, unspecified; E78.5 Hyperlipidemia, unspecified; I25.10 Atherosclerotic heart disease of native coronary artery without angina pectoris; Z87.891 Personal history of nicotine dependence; F44.4 Conversion disorder with motor symptom or deficit
CPT/HCPCS: 70450; 71045; 80053; 81001; 83605; 84484; 85025; 93005; 99285

== ENCOUNTER 2021-12-12 13:54 | Emergency (ER) | payer OTHER, SELFPAY ==
[2021-12-12 13:55] VITALS: BP 146/67; PULSE 63; RESP 18; TEMP 36.3; O2SAT 95; BMI 34.3
--- NOTE | 2021-12-12 14:06 | CT_ITS ---
STUDY: CT BRAIN WITHOUT CONTRAST REASON FOR EXAM: Male, 71 years old. Altered mental status. Syncope. RADIATION DOSAGE (If Supplied By Facility): CTDIvol = ( 47.06 ) mGy, DLP = ( 890.33 ) mGycm TECHNIQUE: Transaxial CT imaging of the brain was performed without administration of intravenous contrast material. Individualized dose optimization techniques were used for this CT. COMPARISON: Comparison is made with prior study dated 11/15/2021. FINDINGS: Normal soft tissue structures. Normal calvarium. There is mild cerebral atrophy with widening of the extra-axial spaces and ventricular dilatation. There are areas of decreased attenuation within the white matter tracts of the supratentorial brain, consistent with microvascular disease changes. Normal basal ganglia and thalami. Normal brainstem. Normal cerebellum. There is no intracranial hemorrhage. There are no findings of an acute ischemic infarction. Atherosclerotic plaque formation of the cavernous portions of the internal carotid arteries bilaterally. Normal visualized paranasal sinuses. CT/Brain/Head without Contrast IMPRESSION: Chronic involutional changes of the brain. Electronically Signed: Mick García MD at 15:29 EDT ,
--- NOTE | 2021-12-12 14:06 | EKG12_ITS ---
Test Reason : SYNCOPE Blood Pressure : / mmHG Vent. Rate : 060 BPM Atrial Rate : 060 BPM P-R Int : 316 ms QRS Dur : 174 ms QT Int : 480 ms P-R-T Axes : 000 -64 118 degrees QTc Int : 480 ms AV dual-paced rhythm with prolonged AV conduction Abnormal ECG Confirmed by BRYN GUALLPA, JULIO C ([id number]), photograph editor NADINE FERRER ([id number]) on 12/13/2021 2:38:05 P M Referred By: JAVIER/ADENIKE Confirmed By:BELEN CLEMENTE MD
[2021-12-12 14:46] LABS: Hematocrit 37.4 % (40-54); Hemoglobin 13.1 g/dL (13.0-16.5); Mean Corpuscular Hgb 33.5 pg (27.0-32.0); Mean Corpuscular Volume 95.7 fL (80-94); Mean Platelet Vol. 10.8 fl (6.2-12.0); Platelet Count 152 K/mm3 (150-450); RBC Distribution Width CV 13.8 % (11.6-14.6); RBC Distribution Width SD 47.8 fl (35.1-43.9); Red Blood Count 3.91 M/mm3 (4.6-6.2); White Blood Count 6.6 K/mm3 (4.4-11.0)
[2021-12-12 14:47] LABS: Anion Gap 5 (5-15); BUN 17 mg/dL (7-18); BUN/Creat Ratio 14.5 RATIO (10-20); Chloride 104 mmol/L (98-107); Creatinine, Serum 1.17 mg/dL (0.70-1.30); EST Glomerular Filtration Rate 65 mL/min (>60); Est Glom Filt Rate - Afr Amer 79 mL/min (>60); Estimated Creatinine Clearance 63.56 ml/min; Glucose 212 mg/dL (74-106); Potassium 4.5 mmol/L (3.5-5.1); Sodium Level 138 mmol/L (136-145); Troponin-I HS (w/2H Reflex) 18 pg/mL (3.0-78.0)
--- NOTE | 2021-12-12 14:48 | RAD_ITS ---
STUDY: X-RAY CHEST REASON FOR EXAM: Male, 71 years old. Confusion TECHNIQUE: Single AP portable view of the chest. COMPARISON: Comparison is made with prior study dated 11/15/2021. FINDINGS: EKG electrodes are seen. The patient is status post ORIF of multiple left-sided rib fractures utilizing plate and screw fixation devices. Stable increased markings in the left hemithorax suggestive of postoperative scarring. The right lung is clear. Sternal cerclage wires and vascular clips are present from a prior sternotomy and coronary artery bypass graft procedure (CABG). A left-sided dual-chamber pacemaker is present. Normal mediastinum and cata. Normal visualized pulmonary arteries. Normal visualized aortic arch and descending thoracic aorta. Normal visualized thoracic spine. Evidence of prior bilateral healed clavicular fractures. There is no demonstrated abnormality of the visualized soft tissue structures of the upper abdomen. RAD/Chest 1 View (Portable) IMPRESSION: Stable examination. No acute abnormality is seen. Electronically Signed: Mick García MD at 15:08 EDT ,
--- NOTE | 2021-12-12 15:18 | EDS_ITS ---
HPI History of Present Illness Chief Complaint: Alt LOC Narrative Narrative: 71-year-old male with history of EKATERINA, CAD, cardiac pacemaker chronic respiratory failure 3 L nasal cannula chronically presenting with what his describes as one of his episodes. Apparently he has multiple episodes of what is called syncope or mental status change which lasts for a few minutes and then he recovers. Has been to the ER multiple times for this. Patient also does have history of stroke as well. At baseline his speech is garbled. He states today he has some discomfort in his chest which he always has. His went to see her doctor and he was there with her when this episode happened. EMS was called. No reported seizure activity. Apparently also has a history of a conversion disorder. There is also history of hemorrhage status post tPA for stroke. They are concerned because he intermittently goes unresponsive and is unclear what the etiology is. [facility] Medical History Abnormal EKG Anemia Atherosclerotic heart disease alutiiq coronary artery w/angina pectoris BiPAP (biphasic positive airway pressure) dependence Chest pain Chronic respiratory failure Congestive heart failure (CHF) Conversion reaction COPD (chronic obstructive pulmonary disease) Diabetes DM type 2 (diabetes mellitus, type 2) Essential (primary) hypertension Former smoker History of fractured rib History of TIAs Hyperlipidemia Myocardial infarct Obesity On home oxygen therapy EKATERINA (obstructive sleep apnea) Pacemaker Pacemaker battery depletion Pulmonary embolism Sick sinus syndrome Stroke/cerebrovascular accident Wears hearing aid in both ears Home Medications aspirin 81 mg tablet,delayed release 81 mg PO DAILY@0800 health maintenance 06/11/18 [History Last Taken 06/07/21] atorvastatin 80 mg tablet 80 mg PO QHS cholesterol 06/11/18 [History Last Taken 06/06/21] cholecalciferol (vitamin D3) 25 mcg (1,000 unit) tablet (Vitamin D3) 3,000 units PO DAILY supplement 06/11/18 [History Last Taken 06/06/21] escitalopram oxalate 10 mg tablet 10 mg PO DAILY depression 06/11/18 [History Last Taken 06/07/21] finasteride 5 mg tablet 5 mg PO DAILY prostate 06/11/18 [History Last Taken 06/07/21] insulin regular hum U-500 conc 500 unit/mL(3 mL) subcut pen (Humulin R U-500 (Conc) Insulin Kwikpen) 100 unit SQ BID diabetes 06/11/18 [History Last Taken 06/06/21] nitroglycerin 0.4 mg sublingual tablet 0.4 mg sublingual Q5M PRN Chest Pain #30 TABLETS 07/22/18 [Rx Last Taken 01/17/20] pantoprazole 40 mg tablet,delayed release 40 mg PO BID GERD 05/18/20 [History Last Taken 06/07/21] acetaminophen 325 mg tablet (Tylenol) 325 mg PO Q6H PRN PRN Mild pain 1-3/Temp > 100.7 F 06/22/20 [History Last Taken 06/07/21] carvedilol 25 mg tablet 25 mg PO BID blood pressure 06/22/20 [History Last Taken 06/07/21] furosemide 40 mg tablet 40 mg PO DAILY FLUID 06/22/20 [History Last Taken 06/07/21] multivitamin 1 tab PO DAILY SUPPLEMENT 06/22/20 [History Last Taken 06/07/21] potassium chloride 20 mEq tablet,extended release(part/cryst) (Klor-Con M) 20 meq PO DAILY supplement 06/22/20 [History Last Taken 06/07/21] ranolazine 500 mg tablet,extended release,12 hr 500 mg PO BID chest pain 06/22/20 [History Last Taken 06/07/21] ferrous sulfate 325 mg (65 mg iron) tablet 325 mg PO BID #60 tabs 06/23/20 [Rx Last Taken 06/07/21] tamsulosin 0.4 mg capsule 0.4 mg PO QHS PROSTATE 08/10/20 [History Last Taken 06/06/21] clopidogrel 75 mg tablet (Plavix) 75 mg PO DAILY blood thinner 01/07/21 [History Last Taken 06/07/21] semaglutide (weight loss) 0.5 mg/0.5 mL subcutaneous pen injector 0.5 mg subcut QWEEK diabetes 02/24/21 [History Last Taken Unknown] albuterol sulfate 90 mcg/actuation aerosol inhaler 1 - 2 puff inhalation Q6H PRN sob 08/17/21 [History Last Taken Unknown] diclofenac sodium 1 % topical gel 1 ea topical BID 08/17/21 [History Last Taken Unknown] fenofibrate 54 mg tablet 48 mg PO DAILY 08/17/21 [History Last Taken Unknown] glucose 4 gram chewable tablet 16 g PO Q15M PRN Hypoglycemia 08/17/21 [History Last Taken Unknown] guaifenesin 100 mg/5 mL oral syrup 200 mg PO TID PRN Cough 08/17/21 [History Last Taken Unknown] levetiracetam 500 mg tablet 500 mg PO BID 08/17/21 [History Last Taken Unknown] gabapentin 300 mg capsule 300 mg PO BID 10/11/21 [History Last Taken Unknown] magnesium 200 mg tablet 400 mg PO BID 10/11/21 [History Last Taken Unknown] Allergy/AdvReac Type Severity Reaction Status Date / Time ezetimibe Allergy Unknown Verified 12/12/21 13:59 Fish Containing Products Allergy Unknown Verified 12/12/21 13:59 glyburide Allergy Unknown Verified 12/12/21 13:59 isosorbide Allergy PT UNSURE Verified 12/12/21 13:59 OF REACTION lisinopril Allergy Unknown Verified 12/12/21 13:59 metformin Allergy Nausea Verified 12/12/21 13:59 metoprolol Allergy Unknown Verified 12/12/21 13:59 simvastatin Allergy Unknown Verified 12/12/21 13:59 gabapentin AdvReac Other Verified 12/12/21 13:59 Family History Father No problems noted. Surgical History H/O coronary artery bypass surgery History of cholecystectomy History of coronary artery stent placement History of knee replacement procedure of left knee History of permanent cardiac pacemaker placement (01/14/21) Social History household members: spouse Smoking Status: Former smoker details: Unknown substance use type: does not use ROS ROS ED Constitutional Constitutional ED: Denies chills or sweats Eyes Eyes: Denies change in vision or diplopia ENT ENT ED: Denies rhinorrhea or sore throat Cardiovascular Cardiovascular: Reports chest pain; Denies palpitations Respiratory/Chest Respiratory/Chest: Denies cough or dyspnea Gastrointestinal Gastrointestinal: Denies abdominal pain or constipation Genitourinary Genitourinary ED: Denies dysuria or hematuria Musculoskeletal Musculoskeletal: Denies arthralgias or back pain Integumentary Denies abscess or Abrasions Neurologic Neurologic: Denies headache(s) Psychiatric Psychiatric: Reports other Details: Confusion episode EXAM Physical Exam Const Vital Signs: 12/12/21 13:55 12/12/21 15:41 Temperature 97.4 F L Temperature Source Temporal Pulse Rate 63 Respiratory Rate 18 Respiratory Effort Normal Non-Labored Respiratory Pattern Normal Blood Pressure 146/67 H Blood Pressure Mean 93 Pulse Ox 95 Oxygen Delivery Method Room Air Positive well nourished General Appearance ED: NAD; Negative for pallor HEENT Reports moist mucous membranes Negative for trauma Eyes PERRL and EOMs intact bilaterally General Eye ED: Negative for pale conjunctiva or scleral icterus Chest Wall inspection of chest normal Resp normal respiratory effort and clear to auscultation bilaterally Auscultation: Negative for rales, rhonchi or wheezes Cardio regular rate and regular rhythm GI normal to inspection, nondistended, normoactive bowel sounds Extremity normal to inspection Neuro oriented x3 Sensorium / Orientation: alert Motor Exam: general weakness Psych mental status grossly normal Skin no rashes or lesions noted and no wounds General Skin Exam: Negative for jaundice or pallor MDM MDM MDM Narrative Medical decision making narrative: Patient presenting with one of his episodes. He was awake and alert for EMS prior to arrival. At baseline he has garbled speech and sometimes is clear. He reports that he had some discomfort in his chest. He was at his 's doctor's office visit when this occurred. He had multiple episodes in the past. His feels he is at baseline currently. CBC is within normal limits. BMP is also at baseline. Glucose elevated at 212 without anion gap. High-sensitivity troponin is 18. EtOH 3.0. CT brain negative for acute intercranial process. Chest x-ray on my interpretation shows no acute cardiopulmonary process and radiologist agree. Patient is asking for morphine which he states helps during these episodes. I do not believe he needs narcotics as he is presenting with altered mental status. He was given a gram of Tylenol. We will obtain a delta troponin and if this is normal he will be discharged home. Patient will be signed out to incoming ED provider for monitoring until the second troponin returns. Impression: 1. Altered mental status resolved 2. History of syncope 3. Chest pain Lab Data Attestation: I reviewed the patient's lab results. Labs: Laboratory Results - last 24 hr 12/12/21 12/12/21 12/12/21 13:40 13:40 13:40 WBC 6.6 RBC 3.91 L Hgb 13.1 Hct 37.4 L MCV 95.7 H MCH 33.5 H MCHC 35.0 RDW Std Deviation 47.8 H RDW Coeff of Cinda 13.8 Plt Count 152 MPV 10.8 Sodium 138 Potassium 4.5 Chloride 104 Carbon Dioxide 29.0 Anion Gap 5 BUN 17 Creatinine 1.17 Estim Creat Clear Calc 63.56 Est GFR (MDRD) Af Amer 79 Est GFR (MDRD) Non-Af 65 BUN/Creatinine Ratio 14.5 Glucose 212 H Calcium 9.0 Troponin I High Sens 18 Urine Color Urine Clarity Urine pH Ur Specific [place] Urine Protein Urine Glucose (UA) Urine Ketones Urine Occult Blood Urine Nitrite Urine Bilirubin Urine Urobilinogen Ur Leukocyte Esterase Ur Drug Screen Comment Ethyl Alcohol 3.0 12/12/21 12/12/21 16:07 16:07 WBC RBC Hgb Hct MCV MCH MCHC RDW Std Deviation RDW Coeff of Cinda Plt Count MPV Sodium Potassium Chloride Carbon Dioxide Anion Gap BUN Creatinine Estim Creat Clear Calc Est GFR (MDRD) Af Amer Est GFR (MDRD) Non-Af BUN/Creatinine Ratio Glucose Calcium Troponin I High Sens Urine Color Yellow Urine Clarity Sl. Cloudy Urine pH 8.0 Ur Specific [place] 1.010 Urine Protein 15 H Urine Glucose (UA) 50 H Urine Ketones Negative Urine Occult Blood Negative Urine Nitrite Negative Urine Bilirubin Negative Urine Urobilinogen Normal Ur Leukocyte Esterase 500 H Ur Drug Screen Comment Ethyl Alcohol Radiography Diagnostic Testing: Clinical Impression(s) from Imaging Studies Brain CT 12/12/21 14:06 IMPRESSION: Chronic involutional changes of the brain. Electronically Signed: Mick García MD at 15:29 EDT , Chest X-Ray 12/12/21 14:48 IMPRESSION: Stable examination. No acute abnormality is seen. Electronically Signed: Mick García MD at 15:08 EDT , Discharge Plan Triage Chief Complaint: Alt LOC ED Provider: Cristian Oliveira Dx/Rx/DC Orders Prescriptions: No Action clopidogrel [Plavix] 75 mg tablet 75 mg PO DAILY atorvastatin 80 MG tablet 80 mg PO QHS Rx Instructions: cholesterol aspirin 81 MG tablet 81 mg PO DAILY@0800 finasteride 5 MG tablet 5 mg PO DAILY escitalopram oxalate 10 MG tablet 10 mg PO DAILY cholecalciferol (vitamin D3) [Vitamin D3] 1,000 UNIT tablet 3,000 units PO DAILY Humulin R U-500 (Conc) Kwikpen 500 UNIT/ML insulin pen 100 unit SQ BID nitroglycerin 0.4 MG tablet, sublingual 0.4 mg sublingual Q5M PRN (Reason: Chest Pain) Qty: 30 0RF Rx Instructions: Place one tab under tongue every 5 minutes x 3 doses as needed pantoprazole 40 MG tablet 40 mg PO BID carvedilol 25 MG tablet 25 mg PO BID multivitamin Tablet 1 tab PO DAILY furosemide 40 mg Tablet 40 mg PO DAILY potassium chloride [Klor-Con M20] 20 mEq Tablet,Er Particles/Crystals 20 meq PO DAILY ranolazine 500 mg Tablet Extended Release 12 Hr 500 mg PO BID acetaminophen [Tylenol] 325 MG tablet 325 mg PO Q6H PRN PRN (Reason: Mild pain 1-3/Temp > 100.7 F) ferrous sulfate 325 mg (65 mg iron) tablet 325 mg PO BID Qty: 60 0RF tamsulosin 0.4 MG capsule 0.4 mg PO QHS semaglutide (weight loss) 0.5 mg/0.5 mL Pen Injector 0.5 mg SUBCUT QWEEK levetiracetam 500 mg Tablet 500 mg PO BID glucose 4 gram Tablet,Chewable 16 g PO Q15M PRN (Reason: Hypoglycemia) Rx Instructions: until symptoms of low blood sugar are controlled albuterol sulfate 90 mcg/actuation Hfa Aerosol Inhaler 1 - 2 puff INHALATION Q6H PRN (Reason: sob) guaifenesin 100 mg/5 mL Syrup 200 mg PO TID PRN (Reason: Cough) diclofenac sodium 1 % Gel 1 ea TOPICAL BID fenofibrate 54 mg Tablet 48 mg PO DAILY gabapentin 300 mg Capsule 300 mg PO BID magnesium 200 mg Tablet 400 mg PO BID [facility] Provider[facility]errals: [facility] [Primary Care Provider] -
[2021-12-12 15:45] VITALS: BP 148/71; PULSE 59; RESP 17; O2SAT 95
[2021-12-12 16:15] LABS: Mucous, Urine 0 SEEN /hpf (<or=2+); Red Blood Cells-Urine 0 SEEN /hpf (0-5)
[2021-12-12] MEDS: Acetaminophen 500 MG Tablet 1000 MG PO (16:25)
[2021-12-12 16:28] LABS: Reflex Troponin-HS? (from REC) Y
[2021-12-12 16:31] LABS: Color, Urine Yellow (Yellow); Glucose, Dipstick 50 mg/dl (Normal); Ketone-Dipstick Negative (Negative); Leukocyte Esterase-Dipstick 500 /ul (Negative); Nitrite-Dipstick Negative (Negative); Occult Blood-Urine Negative /ul (Negative); Protein-Dipstick 15 mg/dl (Negative); Urine Bilirubin Dipstick Negative (Negative); Urine Clarity Sl. Cloudy (Clear); Urine Urobilinogen Normal (Normal)
[2021-12-12 16:40] LABS: Squamous Epithelial Cells - UA 5-10 SEEN /hpf (0-5); White Blood Cells >100 SEEN /hpf (0-5)
[2021-12-12 16:41] LABS: Amphetamine Urine VISTA NEGATIVE (<1000 ng/mL); Bacteria 1+ /hpf (None Seen); Barbiturate Urine VISTA NEGATIVE (< 200 ng/mL); Benzodiazepine Urine VISTA NEGATIVE (< 200 ng/mL); Cocaine Urine VISTA NEGATIVE (< 300 ng/mL); Ecstacy Urine VISTA NEGATIVE (< 500 ng/mL); Methadone Urine VISTA NEGATIVE (< 300 ng/mL); PCP Urine VISTA NEGATIVE (< 25 ng/mL); THC Urine VISTA NEGATIVE (< 50 ng/mL); Vista UDS pH Range 7
[2021-12-12 17:03] LABS: Troponin-I HS 18 pg/mL (3.0-78.0)
== END 2021-12-12 17:29 | disposition home or self-care (01) ==
PROVIDERS: Emergency Provider Student in an Organized Health Care Education/Training Program; Visit Provider Student in an Organized Health Care Education/Training Program
DX: R41.82 Altered mental status, unspecified (principal); J44.9 Chronic obstructive pulmonary disease, unspecified; I11.0 Hypertensive heart disease with heart failure; I50.9 Heart failure, unspecified; E11.65 Type 2 diabetes mellitus with hyperglycemia; I25.10 Atherosclerotic heart disease of native coronary artery without angina pectoris; Z86.73 Personal history of transient ischemic attack (TIA), and cerebral infarction without residual deficits; R07.9 Chest pain, unspecified; E78.5 Hyperlipidemia, unspecified; Z87.891 Personal history of nicotine dependence; Z79.899 Other long term (current) drug therapy
CPT/HCPCS: 70450; 71045; 80048; 80307; 81001; 82077; 84484; 85027; 93005; 99285

== ENCOUNTER 2022-01-19 12:26 | Observation (INO) | payer OTHER, SELFPAY ==
[2022-01-19] VITALS (12 sets, daily range): BP systolic 92–150; BP diastolic 53–81; PULSE 60–64; RESP 12–22; TEMP 36.1–36.2; O2SAT 92–99; BMI 34.4; BMI 34.9
--- NOTE | 2022-01-19 12:29 | EKG12_ITS ---
Test Reason : Blood Pressure : / mmHG Vent. Rate : 060 BPM Atrial Rate : 060 BPM P-R Int : 424 ms QRS Dur : 170 ms QT Int : 482 ms P-R-T Axes : 091 -64 124 degrees QTc Int : 482 ms Atrial-sensed ventricular-paced rhythm with prolonged AV conduction Abnormal ECG Confirmed by PADILLA GUALLPA, CALI ([id number]), online editor NADINE FERRER ([id number]) on 01/20/2022 10:05:22 AM Referred By: Suma Confirmed By:CALI CAUSEY MD
--- NOTE | 2022-01-19 12:29 | RAD_ITS ---
INDICATION: chest pain EXAMINATION/TECHNIQUE: X-RAY - XR Chest 1 View COMPARISON: December 12, 2021 FINDINGS: LINES/DEVICES: There is a cardiac pacer device in place. LUNGS: There is no new focal consolidation. MEDIASTINUM AND CARDIOVASCULAR STRUCTURES: There are sternotomy wires in place. There is stable cardiomegaly. Central airways and mediastinal contour are unremarkable. BONES AND SOFT TISSUES: There are left rib plate and screw fixation devices in place. RAD/Chest 1 View (Portable) IMPRESSION: Stable cardiomegaly. Electronically Signed: Stephy Alberto MD at 13:02 EST ,
--- NOTE | 2022-01-19 12:29 | EDS_ITS ---
HPI History of Present Illness Chief Complaint: Syncope Onset/Context/Timing Onset: Today Context: Sudden Onset Timing: Continuous Quality: Burning Location: Chest Worsened by: Nothing Relieved by: Nothing Narrative Narrative: Patient presents with chest pain that began today. Patient states it began rather suddenly. Patient describes it as a burning. Patient states it is diffuse across his chest. Patient states nothing makes it worse and nothing makes it better. Patient admits to some lightheadedness and dizziness. Family states patient did have a syncopal episode. Patient states he felt his heart racing earlier. Patient admits to some shortness of breath and diaphoresis with the pain. Patient denies any fevers or chills. [facility] Medical History Abnormal EKG Anemia Atherosclerotic heart disease [place] coronary artery w/angina pectoris BiPAP (biphasic positive airway pressure) dependence Chest pain Chronic respiratory failure Congestive heart failure (CHF) Conversion reaction COPD (chronic obstructive pulmonary disease) Diabetes DM type 2 (diabetes mellitus, type 2) Essential (primary) hypertension Former smoker History of fractured rib History of TIAs Hyperlipidemia Myocardial infarct Obesity On home oxygen therapy EKATERINA (obstructive sleep apnea) Pacemaker Pacemaker battery depletion Pulmonary embolism Sick sinus syndrome Stroke/cerebrovascular accident Wears hearing aid in both ears Home Medications aspirin 81 mg tablet,delayed release 81 mg PO DAILY HEART HEALTH 06/11/18 [Hi story Last Taken 12/11/21] atorvastatin 80 mg tablet 80 mg PO QHS cholesterol 06/11/18 [History Last Taken 12/11/21] cholecalciferol (vitamin D3) 25 mcg (1,000 unit) tablet (Vitamin D3) 3,000 units PO DAILY supplement 06/11/18 [History Last Taken 12/11/21] escitalopram oxalate 10 mg tablet 10 mg PO DAILY depression 06/11/18 [History Last Taken 12/11/21] finasteride 5 mg tablet 5 mg PO DAILY prostate 06/11/18 [History Last Taken 12/11/21] insulin regular hum U-500 conc 500 unit/mL(3 mL) subcut pen (Humulin R U-500 (Conc) Insulin Kwikpen) 90 unit SQ BID diabetes 06/11/18 [History Last Taken 12/12/21] nitroglycerin 0.4 mg sublingual tablet 0.4 mg sublingual Q5M PRN Chest Pain #30 TABLETS 07/22/18 [Rx Last Taken 01/17/20] pantoprazole 40 mg tablet,delayed release 40 mg PO BID GERD 05/18/20 [History Last Taken 12/11/21] acetaminophen 325 mg tablet (Tylenol) 1,300 mg PO DAILY PRN PRN Pain 06/22/20 [History Last Taken 12/11/21] carvedilol 25 mg tablet 25 mg PO BID blood pressure 06/22/20 [History Last Taken 12/11/21] furosemide 40 mg tablet 40 mg PO DAILY FLUID 06/22/20 [History Last Taken 12/11/21] potassium chloride 20 mEq tablet,extended release(part/cryst) (Klor-Con M) 20 meq PO DAILY supplement 06/22/20 [History Last Taken 12/11/21] ranolazine 500 mg tablet,extended release,12 hr 500 mg PO Q12H chest pain 06/22/20 [History Last Taken 12/11/21] tamsulosin 0.4 mg capsule 0.4 mg PO QHS PROSTATE 08/10/20 [History Last Taken 12/11/21] clopidogrel 75 mg tablet (Plavix) 75 mg PO DAILY blood thinner 01/07/21 [History Last Taken 12/11/21] semaglutide (weight loss) 0.5 mg/0.5 mL subcutaneous pen injector 0.5 mg subcut FR diabetes 02/24/21 [History Last Taken 2 Weeks Ago ~11/28/21] diclofenac sodium 1 % topical gel 1 ea topical BID 08/17/21 [History Last Taken Unknown] glucose 4 gram chewable tablet 16 g PO Q15M PRN Hypoglycemia 08/17/21 [History Last Taken Unknown] albuterol sulfate 2.5 mg/3 mL (0.083 %) solution for nebulization 2.5 mg inhalation Q6H PRN Shortness Of Breath Or Wheezing 12/12/21 [History Last Taken 12/12/21] fenofibrate nanocrystallized 48 mg tablet 48 mg PO DAILY cholesterol 12/12/21 [History Last Taken 12/11/21] ferrous sulfate 325 mg (65 mg iron) tablet 325 mg PO BID SUPPLEMENT 12/12/21 [History Last Taken 12/11/21] guaifenesin 100 mg/5 mL oral liquid 200 mg PO TID PRN Cough 12/12/21 [History Last Taken 1 Week Ago ~12/05/21] ketoconazole 2 % shampoo 1 applic topical DAILY 12/12/21 [History Last Taken 1 Week Ago ~12/05/21] magnesium oxide 420 mg tablet 420 mg PO BID SUPPLEMENT 12/12/21 [History Last Taken 12/11/21] multivitamin with minerals 1 tab PO DAILY SUPPLEMENT 12/12/21 [History Last Taken 12/11/21] Allergy/AdvReac Type Severity Reaction Status Date / Time ezetimibe Allergy Unknown Verified 12/12/21 13:59 Fish Containing Products Allergy Unknown Verified 12/12/21 13:59 glyburide Allergy Unknown Verified 12/12/21 13:59 isosorbide Allergy PT UNSURE Verified 12/12/21 13:59 OF REACTION lisinopril Allergy Unknown Verified 12/12/21 13:59 metformin Allergy Nausea Verified 12/12/21 13:59 metoprolol Allergy Unknown Verified 12/12/21 13:59 simvastatin Allergy Unknown Verified 12/12/21 13:59 gabapentin AdvReac Other Verified 12/12/21 13:59 Family History Father No problems noted. Surgical History H/O coronary artery bypass surgery History of cholecystectomy History of coronary artery stent placement History of knee replacement procedure of left knee History of permanent cardiac pacemaker placement (01/14/21) Social History household members: spouse Smoking Status: Former smoker details: Unknown substance use type: does not use ROS ROS ED Constitutional Constitutional ED: Reports sweats; Denies chills or fever(s) Eyes Eyes: Denies blurry vision or change in vision ENT ENT ED: Denies rhinorrhea or sore throat Cardiovascular Cardiovascular: Reports palpitations and racing heartbeat; Denies chest pain Respiratory/Chest Respiratory/Chest: Reports dyspnea; Denies cough Gastrointestinal Gastrointestinal: Denies nausea or vomiting Genitourinary Genitourinary ED: Denies dysuria or hematuria Musculoskeletal Musculoskeletal: Denies back pain or neck pain Integumentary Denies abscess or rash Neurologic Neurologic: Denies headache(s) or weakness Allergic/Immunologic Allergic/Immunologic ED: Denies mouth swelling or urticaria EXAM Physical Exam Const Vital Signs: 01/19/22 12:27 01/19/22 12:30 01/19/22 12:43 Temperature 97.1 F L Temperature Source Temporal Pulse Rate 60 Respiratory Rate 16 Respiratory Effort Normal Blood Pressure 123/58 H Blood Pressure Mean 79 Pulse Ox 93 Oxygen Delivery Method Room Air Room Air 01/19/22 12:53 01/19/22 13:01 Temperature Temperature Source Pulse Rate 60 64 Respiratory Rate 20 H Respiratory Effort Blood Pressure 109/72 92/57 L Blood Pressure Mean 68 Pulse Ox Oxygen Delivery Method Positive well nourished and well developed General Appearance ED: well developed HEENT Reports moist mucous membranes Neck supple and no JVD Resp normal respiratory effort and clear to auscultation bilaterally Cardio regular rate, regular rhythm and no murmurs GI normal to inspection, nondistended, normoactive bowel sounds and non-tender Palpation: soft Extremity normal to inspection General Extremety ED: Negative for edema or tenderness General Extremity: Negative for edema Neuro oriented x3, CN's II-XII intact bilaterally and no sensory deficits noted Sensorium / Orientation: alert Motor Exam: strength 5/5 throughout Psych mental status grossly normal Skin no rashes or lesions noted MDM MDM MDM Narrative Medical decision making narrative: EKG was obtained. On my interpretation, shows a paced atrial ventricular rhythm with a rate of 60. There is a left bundle branch block pattern noted. There are no acute ST or T wave changes noted. Portable 1 view chest x-ray was obtained. On my interpretation, lung flores are clear. There is cardiomegaly. Bony thorax is normal. There are plates and screws noted over the left fourth through eighth ribs. There is no acute process noted. Radiologist also interpreted the x-ray and agrees. CBC was within normal limits. Basic metabolic profile showed an elevated glucose of 362. Anion gap was normal. Creatinine was 1.33. High-sensitivity troponin was 19. 2-hour repeat high- sensitivity troponin was obtained and is pending. I recommended admission to the hospital for further evaluation of his chest pain and syncope. Patient is agreeable with this. Case was discussed with the hospitalist. She will admit the patient to PCU. Patient understood and was agreeable with the plan. All questions were answered. Lab Data Attestation: I reviewed the patient's lab results. Labs: Laboratory Results - last 24 hr 01/19/22 01/19/22 12:40 12:40 WBC 4.9 RBC 3.81 L Hgb 12.6 L Hct 36.7 L MCV 96.3 H MCH 33.1 H MCHC 34.3 RDW Std Deviation 47.8 H RDW Coeff of Cinda 13.7 Plt Count 156 MPV 10.4 Immature Gran % (Auto) 0.400 Neut % (Auto) 75.1 H Lymph % (Auto) 17.6 L Terry % (Auto) 4.3 Eos % (Auto) 2.2 Baso % (Auto) 0.4 Absolute Neuts (auto) 3.7 Absolute Lymphs (auto) 0.87 Nucleated RBC % 0 Sodium 136 Potassium 3.8 Chloride 103 Carbon Dioxide 26.0 Anion Gap 7 BUN 15 Creatinine 1.33 H Estim Creat Clear Calc 55.91 Est GFR (MDRD) Af Amer 68 Est GFR (MDRD) Non-Af 56 L BUN/Creatinine Ratio 11.3 Glucose 362 H Calcium 8.4 L Troponin I High Sens 19 Radiography Diagnostic Testing: Clinical Impression(s) from Imaging Studies Chest X-Ray 01/19/22 12:29 IMPRESSION: Stable cardiomegaly. Electronically Signed: Stephy Alberto MD at 13:02 EST Reading Location ID and State: [facility] / [place] Tel , Service support , EKG Initial EKG: Attestation: I personally reviewed and interpreted this EKG as follows: Interpretation: Paced and LBBB Prior EKG tracings: available for review Prior: Unchanged (12/12/2021) Discharge Plan Triage Chief Complaint: Syncope ED Provider: Ciirlo Reyes Dx/Rx/DC Orders Clinical Impression: Chest pain, Syncope Prescriptions: No Action clopidogrel [Plavix] 75 mg tablet 75 mg PO DAILY atorvastatin 80 MG tablet 80 mg PO QHS aspirin 81 MG tablet 81 mg PO DAILY finasteride 5 MG tablet 5 mg PO DAILY escitalopram oxalate 10 MG tablet 10 mg PO DAILY cholecalciferol (vitamin D3) [Vitamin D3] 1,000 UNIT tablet 3,000 units PO DAILY Humulin R U-500 (Conc) Kwikpen 500 UNIT/ML insulin pen 90 unit SQ BID nitroglycerin 0.4 MG tablet, sublingual 0.4 mg sublingual Q5M PRN (Reason: Chest Pain) Qty: 30 0RF Rx Instructions: Place one tab under tongue every 5 minutes x 3 doses as needed pantoprazole 40 MG tablet 40 mg PO BID carvedilol 25 MG tablet 25 mg PO BID furosemide 40 mg Tablet 40 mg PO DAILY potassium chloride [Klor-Con M20] 20 mEq Tablet,Er Particles/Crystals 20 meq PO DAILY ranolazine 500 mg Tablet Extended Release 12 Hr 500 mg PO Q12H acetaminophen [Tylenol] 325 MG tablet 1,300 mg PO DAILY PRN PRN (Reason: Pain) tamsulosin 0.4 MG capsule 0.4 mg PO QHS semaglutide (weight loss) 0.5 mg/0.5 mL Pen Injector 0.5 mg SUBCUT FR glucose 4 gram Tablet,Chewable 16 g PO Q15M PRN (Reason: Hypoglycemia) Rx Instructions: until symptoms of low blood sugar are controlled diclofenac sodium 1 % Gel 1 ea TOPICAL BID magnesium oxide 420 mg Tablet 420 mg PO BID ketoconazole 2 % Shampoo 1 applic TOPICAL DAILY albuterol sulfate 2.5 mg /3 mL (0.083 %) Solution For Nebulization 2.5 mg INHALATION Q6H PRN (Reason: Shortness Of Breath Or Wheezing) guaifenesin 100 mg/5 mL Liquid 200 mg PO TID PRN (Reason: Cough) multivitamin with minerals Tablet 1 tab PO DAILY fenofibrate nanocrystallized 48 mg Tablet 48 mg PO DAILY ferrous sulfate 325 mg (65 mg iron) tablet 325 mg PO BID [place] [facility] [place] [Primary Care Provider] - Disposition Disposition: Acute Care Hospital [facility]
[2022-01-19] MEDS: Aspirin 81 MG TAB.CHEW 324 MG PO (12:39)
[2022-01-19] MEDS: Nitroglycerin SL (ED/IMG/CATH) 0.4 MG TABLET SL (12:53)
[2022-01-19 12:55] LABS: Absolute Lymphocyte Count 0.87 X10^3/uL (0.83-4.51); Absolute Neutrophil Count 3.7 X10^3/uL (2.0-7.7); Basophil# 0.02 X10^3/uL; Basophil% 0.4 % (0-1); Eosinophil# 0.11 X10^3/uL; Eosinophils% 2.2 % (0-5); Hematocrit 36.7 % (40-54); Hemoglobin 12.6 g/dL (13.0-16.5); Lymphocyte # 0.87 X10^3/ul (0.83-4.51); Lymphocyte % 17.6 % (19-41); Mean Corp Hgb Conc 34.3 g/dL (32-36); Mean Corpuscular Hgb 33.1 pg (27.0-32.0); Mean Corpuscular Volume 96.3 fL (80-94); Mean Platelet Vol. 10.4 fl (6.2-12.0); Monocyte# 0.21 X10^3/uL; Monocyte% 4.3 % (0-10); NRBC Flagged by Analyzer 0 % (0-5); Neutrophil # 3.71 X10^3/uL (2.7-7.7); Neutrophil % 75.1 % (47-70); Platelet Count 156 K/mm3 (150-450); RBC Distribution Width CV 13.7 % (11.6-14.6); RBC Distribution Width SD 47.8 fl (35.1-43.9); Red Blood Count 3.81 M/mm3 (4.6-6.2); White Blood Count 4.9 K/mm3 (4.4-11.0)
[2022-01-19 13:11] LABS: Anion Gap 7 (5-15); BUN 15 mg/dL (7-18); BUN/Creat Ratio 11.3 RATIO (10-20); Calcium,Total 8.4 mg/dL (8.5-10.1); Chloride 103 mmol/L (98-107); Creatinine, Serum 1.33 mg/dL (0.70-1.30); EST Glomerular Filtration Rate 56 mL/min (>60); Est Glom Filt Rate - Afr Amer 68 mL/min (>60); Estimated Creatinine Clearance 55.91 ml/min; Glucose 362 mg/dL (74-106); Potassium 3.8 mmol/L (3.5-5.1); Sodium Level 136 mmol/L (136-145); Troponin-I HS (w/2H Reflex) 19 pg/mL (3.0-78.0)
[2022-01-19 14:52] LABS: Reflex Troponin-HS? (from REC) Y
--- NOTE | 2022-01-19 15:03 | PCM.HP.STD ---
HPI - General General Date of Admission: 01/19/22 Date of Service: 01/19/22 Chief Complaint: Chest pain, syncope. HPI Narrative The patient is a 71 y/o M w/ PMHx: Anxiety and Depression, Obesity, Chronic anemia, CAD s/p CABG and PCI, HTN ,HLD, Chronic COPD w/ Chronic Hypoxic Respiratory Failure, Hx PE, Diabetes mellitus type II, Hx sick sinus syndrome s/p pacemaker placement, EKATERINA on BIPAP q HS, Reported Hx Diastolic CHF, Hx CVA w/ chronic aphasia and L sided hemiplegia who presents to the [facility] ED on 01/19/22 with history of syncopal event the day prior as well as on day of presentation once when he was getting up from the toilet with lightheadedness and dizziness preceding the event with no head trauma and again upon ED presentation when he was getting out of the car similarly with lightheadedness and dizziness immediately following standing up with onset of chest discomfort starting midday the day prior noted to be across his chest described as a burning sensation with associated dyspnea and diaphoresis rated 7 out of 10 in discomfort which has been constant including upon current evaluation with no improvement or worsening since its inception prompting ED evaluation. Did review list of medications with patient and family as there was concern as his Keppra was not listed and he notes that neurology took him off at [facility] 10/2021. Work-up in the ED included T97.1, heart rate 60, BP 123/58 with most recent repeat 92/57, respiratory rate 16, 93% room air, see C with WC 4.9, hemoglobin 12.6, MCV 96.3, platelet 156 with mildly increased neutrophil percent otherwise no marked shift, BMP with BUN/creat 15/1.33, glucose 362, troponin 19, chest x-ray with stable cardiomegaly with no acute cardiopulmonary findings otherwise, EKG with paced AV rhythm with rate of 60 with a left bundle branch block with no acute ST or T wave changes. In the ED patient ministered aspirin 324 mg p.o. x1, morphine 4 mg x 1. [facility] Medical History Abnormal EKG Anemia Atherosclerotic heart disease [place] coronary artery w/angina pectoris BiPAP (biphasic positive airway pressure) dependence Chest pain Chronic respiratory failure Congestive heart failure (CHF) Conversion reaction COPD (chronic obstructive pulmonary disease) Diabetes DM type 2 (diabetes mellitus, type 2) Essential (primary) hypertension Former smoker History of fractured rib History of TIAs Hyperlipidemia Myocardial infarct Obesity On home oxygen therapy EKATERINA (obstructive sleep apnea) Pacemaker Pacemaker battery depletion Pulmonary embolism Sick sinus syndrome Stroke/cerebrovascular accident Wears hearing aid in both ears Home Medications aspirin 81 mg tablet,delayed release 81 mg PO DAILY HEART HEALTH 06/11/18 [History Last Taken 12/11/21] atorvastatin 80 mg tablet 80 mg PO QHS cholesterol 06/11/18 [History Last Taken 12/11/21] cholecalciferol (vitamin D3) 25 mcg (1,000 unit) tablet (Vitamin D3) 3,000 units PO DAILY supplement 06/11/18 [History Last Taken 12/11/21] escitalopram oxalate 10 mg tablet 10 mg PO DAILY depression 06/11/18 [History Last Taken 12/11/21] finasteride 5 mg tablet 5 mg PO DAILY prostate 06/11/18 [History Last Taken 12/11/21] insulin regular hum U-500 conc 500 unit/mL(3 mL) subcut pen (Humulin R U-500 (Conc) Insulin Kwikpen) 90 unit SQ BID diabetes 06/11/18 [History Last Taken 12/12/21] nitroglycerin 0.4 mg sublingual tablet 0.4 mg sublingual Q5M PRN Chest Pain #30 TABLETS 07/22/18 [Rx Last Taken 01/17/20] pantoprazole 40 mg tablet,delayed release 40 mg PO BID GERD 05/18/20 [History Last Taken 12/11/21] acetaminophen 325 mg tablet (Tylenol) 1,300 mg PO DAILY PRN PRN Pain 06/22/20 [History Last Taken 12/11/21] carvedilol 25 mg tablet 25 mg PO BID blood pressure 06/22/20 [History Last Taken 12/11/21] furosemide 40 mg tablet 40 mg PO DAILY FLUID 06/22/20 [History Last Taken 12/11/21] potassium chloride 20 mEq tablet,extended release(part/cryst) (Klor-Con M) 20 meq PO DAILY supplement 06/22/20 [History Last Taken 12/11/21] ranolazine 500 mg tablet,extended release,12 hr 500 mg PO Q12H chest pain 06/22/20 [History Last Taken 12/11/21] tamsulosin 0.4 mg capsule 0.4 mg PO QHS PROSTATE 08/10/20 [History Last Taken 12/11/21] clopidogrel 75 mg tablet (Plavix) 75 mg PO DAILY blood thinner 01/07/21 [History Last Taken 12/11/21] semaglutide (weight loss) 0.5 mg/0.5 mL subcutaneous pen injector 0.5 mg subcut FR diabetes 02/24/21 [History Last Taken 2 Weeks Ago ~11/28/21] diclofenac sodium 1 % topical gel 1 ea topical BID 08/17/21 [History Last Taken Unknown] glucose 4 gram chewable tablet 16 g PO Q15M PRN Hypoglycemia 08/17/21 [History Last Taken Unknown] albuterol sulfate 2.5 mg/3 mL (0.083 %) solution for nebulization 2.5 mg inhalation Q6H PRN Shortness Of Breath Or Wheezing 12/12/21 [History Last Taken 12/12/21] fenofibrate nanocrystallized 48 mg tablet 48 mg PO DAILY cholesterol 12/12/21 [History Last Taken 12/11/21] ferrous sulfate 325 mg (65 mg iron) tablet 325 mg PO BID SUPPLEMENT 12/12/21 [History Last Taken 12/11/21] guaifenesin 100 mg/5 mL oral liquid 200 mg PO TID PRN Cough 12/12/21 [History Last Taken 1 Week Ago ~12/05/21] ketoconazole 2 % shampoo 1 applic topical DAILY 12/12/21 [History Last Taken 1 Week Ago ~12/05/21] magnesium oxide 420 mg tablet 420 mg PO BID SUPPLEMENT 12/12/21 [History Last Taken 12/11/21] multivitamin with minerals 1 tab PO DAILY SUPPLEMENT 12/12/21 [History Last Taken 12/11/21] Allergy/AdvReac Type Severity Reaction Status Date / Time ezetimibe Allergy Unknown Verified 12/12/21 13:59 Fish Containing Products Allergy Unknown Verified 12/12/21 13:59 glyburide Allergy Unknown Verified 12/12/21 13:59 isosorbide Allergy PT UNSURE Verified 12/12/21 13:59 OF REACTION lisinopril Allergy Unknown Verified 12/12/21 13:59 metformin Allergy Nausea Verified 12/12/21 13:59 metoprolol Allergy Unknown Verified 12/12/21 13:59 simvastatin Allergy Unknown Verified 12/12/21 13:59 gabapentin AdvReac Other Verified 12/12/21 13:59 Family History Father No problems noted. no significant family history (Patient denies any marked maternal or paternal family history including HD, DM, CA.) Surgical History H/O coronary artery bypass surgery History of cholecystectomy History of coronary artery stent placement History of knee replacement procedure of left knee History of permanent cardiac pacemaker placement (01/14/21) Social History household members: spouse Smoking Status: Former smoker details: Unknown substance use type: does not use ROS ROS Narrative Admission Review of Systems: CONSTITUTIONAL: No weight loss, fever, chills, + weakness or fatigue. HEENT: Eyes: No visual loss, blurred vision, double vision or yellow sclerae. Ears, Nose, Throat: No hearing loss, sneezing, congestion, runny nose or sore throat. SKIN: No rash or itching, lesions, wounds. CARDIOVASCULAR: + chest pain/burning, syncopal events, lightheadedness/dizziness, No palpitations, edema, orthopnea. RESPIRATORY: + shortness of breath, No cough or sputum, wheezing, hemoptysis. GASTROINTESTINAL: No anorexia, nausea, vomiting or diarrhea, abdominal pain, melena, BRBPR. GENITOURINARY: No dysuria, frequency, urgency or retention. NEUROLOGICAL: + L sided prior CVA deficits/paresthesias/aphasia, lightheadedness/dizziness, syncopal event, No headache, ataxia, change in bowel or bladder control, seizure. MUSCULOSKELETAL: + muscle, back pain, joint pain or stiffness. HEMATOLOGIC: + anemia, bleeding or bruising. LYMPHATICS: No enlarged nodes. No history of splenectomy. PSYCHIATRIC: + history of depression or anxiety. ENDOCRINOLOGIC: No reports of sweating, cold or heat intolerance. No polyuria or polydipsia. ALLERGIES: + history of rhinitis. Vital Signs Vital Signs Vital Signs: 01/19/22 12:27 01/19/22 12:30 01/19/22 12:43 Temperature 97.1 F L Temperature Source Temporal Pulse Rate 60 Respiratory Rate 16 Respiratory Effort Normal Blood Pressure 123/58 H Blood Pressure Mean 79 Pulse Ox 93 Oxygen Delivery Method Room Air Room Air 01/19/22 12:53 01/19/22 13:01 Temperature Temperature Source Pulse Rate 60 64 Respiratory Rate 20 H Respiratory Effort Blood Pressure 109/72 92/57 L Blood Pressure Mean 68 Pulse Ox Oxygen Delivery Method Weight Weight: 254 lb 6.615 oz Body Mass Index (BMI) 34.4 Physical Exam Narrative Physical Examination: General: Awake, alert, oriented x > 3, baseline similar speech deficits with aphasia to his prior evaluations, following commands, fatigued but no acute distress, reports still ongoing chest discomfort described as a burning across his chest rated 7 out of 10 but appears comfortable. Skin: Normal color, normal turgor, no icterus, no cyanosis except mild BL LE venous stasis skin changes. HEENT: AT/NC, EOMI, PERRLA, MMM, chronic speech alteration/aphasia, no carotid bruits or JVD noted. Lungs: Diminished, > bases, appropriate effort, no rales, ronchi or wheezing. Heart: Paced; no gallop, rub audible. Abdomen: Soft, obese, NTTP, ND, distant normal BS, no obvious HSM. Extremities: No cyanosis, clubbing, or edema. See skin. Neurological: Patient awake, alert, oriented as noted, cognitive function appears currently baseline intact; pupils equally reactive to light and accommodation, cranial nerves grossly normal, moving all 4 extremities however does have history of chronic left-sided deficits as well as paresthesias which are unchanged, strength especially given acute presentation moderately to severely global decreased. Psychiatric: Affect appears fatigued, no acute current evidence of anxiety or depression but does have underlying history. Results Lab / Micro Data Result Diagrams: 01/19/22 12:40 01/19/22 12:40 Labs: Laboratory Results - last 24 hr 01/19/22 12:40: WBC 4.9, RBC 3.81 L, Hgb 12.6 L, Hct 36.7 L, MCV 96.3 H, MCH 33.1 H, MCHC 34.3, RDW Std Deviation 47.8 H, RDW Coeff of Cinda 13.7, Plt Count 156, MPV 10.4, Immature Gran % (Auto) 0.400, Neut % (Auto) 75.1 H, Lymph % (Auto) 17.6 L, Dickens % (Auto) 4.3, Eos % (Auto) 2.2, Baso % (Auto) 0.4, Absolute Neuts (auto) 3.7, Absolute Lymphs (auto) 0.87, Nucleated RBC % 0 01/19/22 12:40: Sodium 136, Potassium 3.8, Chloride 103, Carbon Dioxide 26.0, Anion Gap 7, BUN 15, Creatinine 1.33 H, Estim Creat Clear Calc 55.91, Est GFR (MDRD) Af Amer 68, Est GFR (MDRD) Non-Af 56 L, BUN/Creatinine Ratio 11.3, Glucose 362 H, Calcium 8.4 L, Troponin I High Sens 19 Radiology Impression Chest X-Ray 01/19/22 12:29 IMPRESSION: Stable cardiomegaly. Electronically Signed: Stephy Alberto MD at 13:02 EST Reading Location ID and State: [facility] / [place] Tel , Service support , Assessment & Plan Assessment/Plan (1) Chest pain: (2) Syncope: PLAN: Plan The patient is a 71 y/o M w/ PMHx: Anxiety and Depression, Obesity, Chronic anemia, CAD s/p CABG and PCI, HTN ,HLD, Chronic COPD w/ Chronic Hypoxic Respiratory Failure, Hx PE, Diabetes mellitus type II, Hx sick sinus syndrome s/p pacemaker placement, KEATERINA on BIPAP q HS, Reported Hx Diastolic CHF, Hx CVA w/ chronic aphasia and L sided hemiplegia who presents to the [facility] ED on 01/19/22 with history of syncopal event the day prior as well as on day of presentation once when he was getting up from the toilet with lightheadedness and dizziness preceding the event with no head trauma and again upon ED presentation when he was getting out of the car similarly with lightheadedness and dizziness immediately following standing up with onset of chest discomfort starting midday the day prior noted to be across his chest described as a burning sensation with associated dyspnea and diaphoresis rated 7 out of 10 in discomfort which has been constant. #1. Syncopal Event suspected secondary to orthostasis with concurrent ongoing chest discomfort: ED evaluation with troponin 19, chest x-ray with stable cardiomegaly with no acute cardiopulmonary findings otherwise, EKG with paced AV rhythm with rate of 60 with a left bundle branch block with no acute ST or T wave changes. Will admit to PCU, place on a monitored bed to assure no acute myocardial infarction with serial cardiac enzymes and EKGs. Will maintain on fall precautions, obtain admission orthostatic and AM orthostatic VS if necessary, judiciously hydrating given underlying diastolic CHF history, will obtain ECHO as well as planned 01/20/2022 potential stress testing pending further evaluation. PT/OT/CM consultation to ascertain stability and discharge needs. #2.? Hx CVA w/ chronic L sided hemiplegia, expressive aphasia: Patient with ongoing chronic deficits, unchanged, will continue aspirin plan BX, statin, temporarily hold being patient home Coreg regimen given hypotension upon presentation and suspected orthostasis as noted. Add back regimen once appropriate. #3.? Chronic COPD with chronic hypoxic respiratory failure (from records suspect 3 L nasal cannula chronic): Will maintain on home oxygen supplementation, continue ATC duonebs, PRN albuterol, HOB, IS parameters. #4.? CAD: Status post CABG and PCI, will continue aspirin and Plavix, continue statin therapy in addition to Ranexa, temporarily holding hypertensive regimen as noted given hypotensive presentation. #5.? Questionable diastolic CHF: Noted in history however [facility] w/ noted LV size and systolic function normal, pacemaker lead in right ventricle, EF 50 to 55%, mildly dilated LA, mild TR, RVSP 25 mmHg Doppler measurements indicate a normal LV diastolic function however given presentation as noted #1 repeat echocardiogram requested, continue aspirin and Plavix, temporarily holding hypertensive regimen given #1 as noted, statin. #6.? Seizure disorder, supposedly ruled out: Patient previously had been on Keppra however recently taken off 10/2021 per neurology at [facility] as lower suspicion for seizure. Encourage continued outpatient follow-up with neurology. #7.? History of pulmonary embolism: Noted history, not currently chronically anticoagulated #8.? Hypertension: Temporarily holding hypertensive regimen as noted given low blood pressure and suspected orthostasis #9.? Hyperlipidemia: Continue statin, FLP in AM. #10.? Diabetes mellitus type II: Hold oral home regimen, continue home insulin regimen, ADA diet with n.p.o. status at midnight, accu checks w/ ISS. #11.? History sick sinus syndrome: Status post pacemaker placement, device interrogation requested given #1. #12.? Chronic macrocytic anemia/Fe deficiency anemia: Admission hemoglobin 12.6, similar to baseline, primarily 11-12 range, will continue to trend, continue supplementation. #13.? Chronic thrombocytopenia: Admission platelets 156, prior 120-150, stable, continue to trend. #14.? Obesity: Weight loss and lifestyle changes encouraged. #15.? BPH: We will continue patient home Flomax and finasteride regimen however given low blood pressure low threshold to hold especially given orthostasis #16.? Anxiety and depression: We will continue patient home escitalopram regimen. #17.? GERD: We will continue patient home oral PPI. #18.? EKATERINA: BiPAP nightly. #19.? DVT prophylaxis: SCDs, lovenox. #20.? CODE status: Patient BERTA is his who is present and living will is currently in place. Discussed CODE status at length including difference between FULL code, DNR-CCA and DNR-CC status. Following discussions about the differences in these status, similar to prior presentations requested Full Code status. Advanced Care Planning Face to Face Time: 16 minutes. Charges/Coding Visit Charges OBSV E&M: 77908 Initial observation care L3 Procedures Hospitalists Procedures: 47119 Advncd Care Plan 30 Min
[2022-01-19] MEDS: Morphine 4 MG/ML Syringe IV (15:09)
--- NOTE | 2022-01-19 15:34 | NURSING ---
PCU OBS WHITE CHEST PAIN, SYNCOPE
--- NOTE | 2022-01-19 15:45 | NURSING ---
CALLED MARK CAZARES. NOTIFIED BED CONTROL. LEFT MESSAGE WITH PATIENT LAST NAME, LAST 4 SOCIAL, DIAGNOSIS AND ROOM NUMBER
[2022-01-19 15:46] LABS: Troponin-I HS 17 pg/mL (3.0-78.0)
[2022-01-19 15:46] LABS: Magnesium 1.7 mg/dL (1.6-2.6)
--- NOTE | 2022-01-19 17:05 | ECHOCS_ITS ---
Reason For Study: SYNCOPE Procedure This was a 2D Doppler, Color Flow transthoracic echocardiogram. The study was technically difficult. Contrast injection was performed. Exam performed portable in patient room. Left Ventricle Normal LV size. The estimated ejection fraction is 50 %. Apical wall motion abnormality may reflect pacemaker activation. Right Ventricle Normal RV size. Normal systolic function. Atria Normal left atrium. Normal right atrium. Mitral Valve Mitral valve not well visualized. Tricuspid Valve Normal tricuspid valve. Aortic Valve The aortic valve is not well visualized. Pulmonic Valve The pulmonic valve is not well visualized. Great Vessels Normal aortic root. The pulmonary artery is normal size. Normal inferior vena cava. Pericardium/Pleural No pericardial effusion. Medication Diluted definity 3ml given slow IV push to enhance endocardial definition. MMode/2D Measurements & Calculations Ao root diam: 3.5 cm LAV(MOD-sp2): 46.4 ml LA dimension(2D): 5.2 cm Time Measurements MV dec time: 0.22 sec Doppler Measurements & Calculations MV E max des: 79.6 cm/sec Lat Peak E' Des: 12.3 cm/sec Med Peak E' Des: 5.4 cm/sec MV A max des: 66.9 cm/sec E/E' lat: 6.5 E/E' med: 14.7 MV E/A: 1.2 MV V2 max: 94.5 cm/sec Ao V2 max: 74.7 cm/sec MV max P.6 mmHg MV dec slope: 378.0 cm/sec2 Ao max P.3 mmHg MV V2 mean: 51.5 cm/sec Ao V2 mean: 51.3 cm/sec MV mean P.3 mmHg Ao mean P.2 mmHg MV V2 VTI: 32.5 cm Ao V2 VTI: 16.5 cm AV (velocity ratio): 0.84 LV V1 max: 90.4 cm/sec PA V2 max: 118.2 cm/sec LV V1 max P.3 mmHg PA V2 mean: 74.2 cm/sec LV V1 mean P.5 mmHg LV V1 mean: 57.8 cm/sec LV V1 VTI: 13.9 cm ECHO/Echo Complete W/ Contrast Interpretation Summary Normal LV size. The estimated ejection fraction is 50 %. Contrast injection was performed. The study was technically limited. The study was technically difficult. Ordering Physician: Lamar Brown Referring Physician: [facility] Performed By: Donna Drake RCS
[2022-01-19] MEDS: 0.9% Normal Saline 1,000 ML 100 ML IV (17:45)
[2022-01-19] MEDS: Insulin Lispro 100 UNIT/ML INSULN.PEN SC ×2 (18:35→21:23)
[2022-01-19] MEDS: Ranolazine 500 MG Tablet PO (19:01)
[2022-01-19 19:09] LABS: Troponin-I HS 19 pg/mL (3.0-78.0)
[2022-01-19 19:20] LABS: Bedside Glucose 158 mg/dL (74-106)
[2022-01-19] MEDS: Atorvastatin Calcium 80 MG Tablet PO (19:53)
[2022-01-19] MEDS: Ferrous Sulfate 325 MG Tablet PO (19:53)
[2022-01-19] MEDS: Pantoprazole Sodium 40 MG Tablet PO (19:54)
[2022-01-19] MEDS: Tamsulosin HCl 0.4 MG Capsule PO (19:54)
[2022-01-19] MEDS: Ipratropium/Albuterol Sulfate 3 ML AMPUL.NEB INHALATION (20:26)
[2022-01-19 22:46] LABS: Bedside Glucose 207 mg/dL (74-106)
[2022-01-20] VITALS (18 sets, daily range): BP systolic 140–160; BP diastolic 52–76; PULSE 57–65; RESP 12–23; TEMP 36.4–36.6; O2SAT 94–99
--- NOTE | 2022-01-20 05:55 | EKG12_ITS ---
Test Reason : AM EKG Blood Pressure : / mmHG Vent. Rate : 060 BPM Atrial Rate : 060 BPM P-R Int : 400 ms QRS Dur : 178 ms QT Int : 512 ms P-R-T Axes : 094 -62 110 degrees QTc Int : 512 ms Atrial-sensed ventricular-paced rhythm with prolonged AV conduction Abnormal ECG When compared with ECG of 19-JAN-2022 12:28, MANUAL COMPARISON REQUIRED, DATA IS UNCONFIRMED Confirmed by PADILLA GUALLPA, CALI ([id number]), editor map NADINE FERRER ([id number]) on 01/21/2022 12:40:12 PM Referred By: Confirmed By:CALI CAUSEY MD
[2022-01-20 06:06] LABS: Absolute Lymphocyte Count 1.16 X10^3/uL (0.83-4.51); Basophil# 0.02 X10^3/uL; Basophil% 0.4 % (0-1); Eosinophil# 0.16 X10^3/uL; Eosinophils% 3.4 % (0-5); Hematocrit 33.5 % (40-54); Hemoglobin 11.6 g/dL (13.0-16.5); Lymphocyte # 1.16 X10^3/ul (0.83-4.51); Lymphocyte % 24.9 % (19-41); Mean Corp Hgb Conc 34.6 g/dL (32-36); Mean Corpuscular Hgb 33.6 pg (27.0-32.0); Mean Corpuscular Volume 97.1 fL (80-94); Mean Platelet Vol. 10.5 fl (6.2-12.0); Monocyte# 0.33 X10^3/uL; Monocyte% 7.1 % (0-10); NRBC Flagged by Analyzer 0 % (0-5); Neutrophil # 2.98 X10^3/uL (2.7-7.7); Platelet Count 127 K/mm3 (150-450); RBC Distribution Width CV 13.9 % (11.6-14.6); RBC Distribution Width SD 48.9 fl (35.1-43.9); Red Blood Count 3.45 M/mm3 (4.6-6.2); White Blood Count 4.7 K/mm3 (4.4-11.0)
[2022-01-20 06:37] LABS: AST(SGOT) 19 U/L (15-37); Alanine Aminotransfer ALT/SGPT 34 U/L (16-61); Albumin, Serum 3.1 g/dL (3.2-5.0); Alkaline Phosphatase 69 U/L (45-117); Anion Gap 6 (5-15); BUN 17 mg/dL (7-18); BUN/Creat Ratio 18.5 RATIO (10-20); Calcium,Total 8.2 mg/dL (8.5-10.1); Chloride 103 mmol/L (98-107); Cholesterol 102 mg/dL (200); Creatinine, Serum 0.92 mg/dL (0.70-1.30); EST Glomerular Filtration Rate 86 mL/min (>60); Est Glom Filt Rate - Afr Amer 104 mL/min (>60); Estimated Creatinine Clearance 76.04 ml/min; Globulin 3.2 g/dL (2.2-4.2); Glucose 220 mg/dL (74-106); High Density Lipoprotein 34 mg/dL; Protein, Total 6.3 g/dL (6.4-8.2); Sodium Level 138 mmol/L (136-145); Triglycerides 173 mg/dL; Very Low Density Lipoprotein 35 mg/dL (5-40)
[2022-01-20] MEDS: Aspirin E.C. 81 MG Tablet PO (07:00)
[2022-01-20] MEDS: Clopidogrel Bisulfate 75 MG Tablet PO (07:00)
[2022-01-20] MEDS: Ipratropium/Albuterol Sulfate 3 ML AMPUL.NEB INHALATION ×3 (07:11→19:02)
[2022-01-20 07:20] LABS: Bedside Glucose 218 mg/dL (74-106)
--- NOTE | 2022-01-20 07:43 | NURSING ---
This RN went into room to get vitals and give morning meds around 06:00. Pt was sleeping with bipap in place. When I attempted to wake him up he wouldnt open his eyes or speak. I stayed with him for several minutes trying to wake him up. He began to open his eyes and move around more. When I poked his feet he reacted, but when he started to catch on to what I was doing he would then stop and become flaccid. When I tried to get him to speak he eventually improved from not responding, to speaking garbled. He would lift his tongue up to the roof of his mouth so I could not understand what he was saying. When I asked questions he would respond approriately with a nod or head shake. Vitals were all stable, blood sugar was as well.
--- NOTE | 2022-01-20 09:36 | PN.HOSP_ITS ---
Subjective Subjective States that he falls just goes out. But falls into a bed and when he is going to the hospital fell back into his car seat. Did not have any injuries and has had numerous falls at home without any injuries. Had been on any antiepileptics but was taken off by a neurologist. Patient has been worked up extensively over the past few months. They state that he is seeing a psychiatrist as well as that there is nothing wrong with him. Objective Data Objective Data Vital Signs: Vital Signs Temp Pulse Resp BP Pulse Ox O2 Del Method FiO2 36.6 C 61 23 H 140/64 H 98 Room Air 32 01/20/22 06:52 01/20/22 07:25 01/20/22 07:25 01/20/22 06:52 01/20/22 07:25 01/20/22 07:11 01/20/22 07:25 Oxygen Delivery Method Room Air Weight: 112.3 kg Body Mass Index (BMI) 34.9 Intake & Output: Intake and Output for Last 24 Hours 01/18/22 01/19/22 01/20/22 23:59 23:59 23:59 Intake Total 1200 / 1200 Output Total 475 / 475 Balance 725 / 725 Lab / Micro Data Result Diagrams: 01/20/22 05:16 01/20/22 05:16 Labs: Laboratory Results - last 24 hr 01/19/22 12:40: WBC 4.9, RBC 3.81 L, Hgb 12.6 L, Hct 36.7 L, MCV 96.3 H, MCH 33.1 H, MCHC 34.3, RDW Std Deviation 47.8 H, RDW Coeff of Cinda 13.7, Plt Count 156, MPV 10.4, Immature Gran % (Auto) 0.400, Neut % (Auto) 75.1 H, Lymph % (Auto) 17.6 L, Telfair % (Auto) 4.3, Eos % (Auto) 2.2, Baso % (Auto) 0.4, Absolute Neuts (auto) 3.7, Absolute Lymphs (auto) 0.87, Nucleated RBC % 0 01/19/22 12:40: Sodium 136, Potassium 3.8, Chloride 103, Carbon Dioxide 26.0, Anion Gap 7, BUN 15, Creatinine 1.33 H, Estim Creat Clear Calc 55.91, Est GFR (MDRD) Af Amer 68, Est GFR (MDRD) Non-Af 56 L, BUN/Creatinine Ratio 11.3, Glucose 362 H, Calcium 8.4 L, Troponin I High Sens 19 01/19/22 14:52: Magnesium 1.7 01/19/22 15:00: Troponin I High Sens 17 01/19/22 17:52: POC Glucose 158 H 01/19/22 18:40: Troponin I High Sens 19 01/19/22 21:22: POC Glucose 207 H 01/20/22 05:16: WBC 4.7, RBC 3.45 L, Hgb 11.6 L, Hct 33.5 L, MCV 97.1 H, MCH 33.6 H, MCHC 34.6, RDW Std Deviation 48.9 H, RDW Coeff of Cinda 13.9, Plt Count 127 L, MPV 10.5, Immature Gran % (Auto) 0.200, Neut % (Auto) 64.0, Lymph % (Auto) 24.9, Telfair % (Auto) 7.1, Eos % (Auto) 3.4, Baso % (Auto) 0.4, Absolute Neuts (auto) 3.0, Absolute Lymphs (auto) 1.16, Nucleated RBC % 0 01/20/22 05:16: Sodium 138, Potassium 4.0, Chloride 103, Carbon Dioxide 29.0, Anion Gap 6, BUN 17, Creatinine 0.92, Estim Creat Clear Calc 76.04, Est GFR (MDRD) Af Amer 104, Est GFR (MDRD) Non-Af 86, BUN/Creatinine Ratio 18.5, Glucose 220 H, Calcium 8.2 L, Total Bilirubin 0.70, AST 19, ALT 34, Alkaline Phosphatase 69, Total Protein 6.3 L, Albumin 3.1 L, Globulin 3.2, Albumin/Globulin Ratio 1.0, Triglycerides 173, Cholesterol 102, LDL Cholesterol 33, VLDL Cholesterol 35, HDL Cholesterol 34 L 01/20/22 06:48: POC Glucose 218 H Radiography Diagnostic Testing: Radiology Impression Chest X-Ray 01/19/22 12:29 IMPRESSION: Stable cardiomegaly. Electronically Signed: Stephy Alberto MD at 13:02 EST , Physical Exam Const alert and no apparent distress Resp normal respiratory effort, no retractions, no use of accessory muscles and clear to auscultation bilaterally Cardio regular rate, regular rhythm, S1 normal heart sound and S2 normal heart sound GI normal to inspection, nondistended, normoactive bowel sounds, soft to palpation, non-tender and non-distended Extremity normal to inspection Assessment & Plan Assessment/Plan (1) Chest pain: PLAN: Stress as negative. No additional cardiac work-up (2) Syncope: PLAN: Syncopal Event suspected secondary to orthostasis with concurrent ongoing chest discomfort: ED evaluation with troponin 19, chest x-ray with stable cardiomegaly with no acute cardiopulmonary findings otherwise, EKG with paced AV rhythm with rate of 60 with a left bundle branch block with no acute ST or T wave changes. Will admit to PCU, place on a monitored bed to assure no acute myocardial infarction with serial cardiac enzymes and EKGs. Will maintain on fall precautions, obtain admission orthostatic and AM orthostatic VS if necessary, judiciously hydrating given underlying diastolic CHF history, will obtain ECHO as well as planned 01/20/2022 Had very lengthy conversation with the patient and his that he has had numerous falls without any injuries with no recognition of when he is getting go out. But when he does fall he falls into a bed or a car seat. I told him that if he were to lose complete control that he would not be able to protect himself and that he should have sustained significant serious injuries at least during some of these falls. I told him that I am concerned for psychosomatic etiology of his conditions. Told that is a diagnosis of exclusion but he has been worked up extensively and seen neurology in the past. We will repeat a head CT in the morning monitor on telemetry and trend interrogate his pacer to see if there is any other organic etiology. Patient did have slight drop in his blood pressure but not enough to qualify as orthostatic hypotension. PLAN: Plan Chronic conditions: * Hx CVA w/ chronic L sided hemiplegia, expressive aphasia: Patient with ongoing chronic deficits, unchanged, will continue aspirin plan BX, statin, temporarily hold being patient home Coreg regimen given hypotension upon presentation and suspected orthostasis as noted. Add back regimen once appropriate. * Chronic COPD with chronic hypoxic respiratory failure (from records suspect 3 L nasal cannula chronic): Will maintain on home oxygen supplementation, continue ATC duonebs, PRN albuterol, HOB, IS parameters. * CAD: Status post CABG and PCI, will continue aspirin and Plavix, continue statin therapy in addition to Ranexa, temporarily holding hypertensive regimen as noted given hypotensive presentation. * Questionable diastolic CHF: Noted in history however [facility] noted LV size and systolic function normal, pacemaker lead in right ventricle, EF 50 to 55%, mildly dilated LA, mild TR, RVSP 25 mmHg Doppler measurements indicate a normal LV diastolic function however given presentation as noted #1 repeat echocardiogram requested, continue aspirin and Plavix, temporarily holding hypertensive regimen given #1 as noted, statin. * Seizure disorder, supposedly ruled out: Patient previously had been on Keppra however recently taken off 10/2021 per neurology at [facility] as lower suspicion for seizure. Encourage continued outpatient follow-up with neurology. * History of pulmonary embolism: Noted history, not currently chronically anticoagulated * Hypertension: Temporarily holding hypertensive regimen as noted given low blood pressure and suspected orthostasis * Hyperlipidemia: Continue statin, FLP in AM. * Diabetes mellitus type II: Hold oral home regimen, continue home insulin regimen, ADA diet with n.p.o. status at midnight, accu checks w/ ISS. * History sick sinus syndrome: Status post pacemaker placement, device interrogation requested given #1. * Chronic macrocytic anemia/Fe deficiency anemia: Admission hemoglobin 12.6, similar to baseline, primarily 11-12 range, will continue to trend, continue supplementation. * Chronic thrombocytopenia: Admission platelets 156, prior 120-150, stable, continue to trend. * Obesity: Weight loss and lifestyle changes encouraged. * BPH: We will continue patient home Flomax and finasteride regimen however given low blood pressure low threshold to hold especially given orthostasis * Anxiety and depression: We will continue patient home escitalopram regimen. * GERD: We will continue patient home oral PPI. * EKATERINA: BiPAP nightly. DVT prophylaxis: SCDs, lovenox. CODE status: Patient HCPOA is his who is present and living will is currently in place. Discussed CODE status at length including difference between FULL code, DNR-CCA and DNR-CC status. Following discussions about the differences in these status, similar to prior presentations requested Full Code status. Advanced Care Planning Face to Face Time: 16 minutes. Greater than 45 minutes of which greater than 50% of time was counseling the patient and his at bedside, reviewing his history of falls, lack of injury and previous negative work-up. Did inform them if his work-up here is unremarkable then he will be discharged home tomorrow. Charges/Coding Visit Charges OBSV E&M: 58148 Subsequent observation care L3
[2022-01-20 13:05] LABS: Bedside Glucose 244 mg/dL (74-106)
--- NOTE | 2022-01-20 13:07 | STRESSREP ---
Stress Test Report Pharmacologic myocardial perfusion stress test. 71-year-old man with a history of chest pain Resting EKG demonstrates sinus bradycardia with a rate of [62] bpm ventricular pacing was noted. Resting blood pressure is 128/84 mmHg. 0.4 mg of regadenoson was infused per usual protocol followed by rapid intravenous saline flush injection. Continuous EKG monitoring was performed. The maximum heart rate was [77 ] bpm which was 51% of max impacted heart rate the maximum workload was 1 metabolic equivalent. At rest there were no ST or T wave changes noted to suggest ischemia and at peak infusion nonspecific ST changes were noted with did not meet the criteria for ischemia. Occasional premature ventricular complexes noted. No clinical angina is noted. The final blood pressure was 142/70 mmHg. Myocardial perfusion protocol. 15.0 mCi of technetium 99m sestamibi was injected at rest. 0.4 mg of regadenoson was infused per usual protocol. At peak infusion 44.8 mCi of technetium 99m sestamibi was injected stress images were obtained stress and rest images were reconstructed and compared in the short axis vertical long and horizontal long axis. Gated images were also obtained. Perfusion SPECT analysis: Review of the stress images demonstrate normal uptake of tracer noted in all areas of the myocardium. The resting images similar demonstrated normal uptake of tracer noted in all areas of the myocardium. No areas of reversibility are noted to suggest ischemia and no previous infarct is noted. Gated SPECT analysis: The gated ejection fraction is 51%. Conclusion: Normal pharmacologic myocardial perfusion stress test. Preserved ejection fraction.
--- NOTE | 2022-01-20 13:44 | CASEMGMT ---
This RN CM to room and pt/ state they are not active with HHC and states no concerns at home. Per pt/, no need for any further therapy at home at this time but pt states does want lunch and nurse into room to assist. Pt/ voice no further questions/concerns/needs. SStaten RN CM
[2022-01-20] MEDS: Finasteride 5 MG Tablet PO (15:00)
[2022-01-20] MEDS: Ranolazine 500 MG Tablet PO ×2 (15:00→21:33)
[2022-01-20] MEDS: Escitalopram Oxalate 10 MG Tablet PO (15:00)
[2022-01-20] MEDS: Pantoprazole Sodium 40 MG Tablet PO ×2 (15:00→21:33)
[2022-01-20] MEDS: Fenofibrate 48 MG Tablet PO (15:00)
[2022-01-20] MEDS: Potassium Chloride Oral Tablet 20 MEQ PO (15:01)
[2022-01-20] MEDS: Menthol/Lanolin/Calamine/Znox 113 GM Tube 1 APPLIC TOPICAL ×3 (15:01→21:33)
--- NOTE | 2022-01-20 15:53 | CASEMGMT ---
This RN CM to room to complete FERGUSON form with pt/, explanation done-voice understanding, and pt signs FERGUSON form. Original to chart and copy to pt. Pt/ voice no further questions/concerns/needs. SStaten KRISTI CM
[2022-01-20] MEDS: Insulin Lispro 100 UNIT/ML INSULN.PEN SC ×2 (16:36→21:36)
[2022-01-20] MEDS: Ferrous Sulfate 325 MG Tablet PO (16:41)
[2022-01-20] MEDS: Acetaminophen 325 MG Tablet 650 MG PO (17:47)
[2022-01-20 18:05] LABS: Bedside Glucose 261 mg/dL (74-106)
[2022-01-20] MEDS: Atorvastatin Calcium 80 MG Tablet PO (21:33)
[2022-01-20] MEDS: Tamsulosin HCl 0.4 MG Capsule PO (21:33)
[2022-01-20] MEDS: Acetaminophen 500 MG Tablet 1000 MG PO (21:33)
[2022-01-20] MEDS: 0.9% Saline Lock 10 ML Syringe IV (21:37)
[2022-01-20 22:35] LABS: Bedside Glucose 216 mg/dL (74-106)
[2022-01-21] VITALS (7 sets, daily range): BP systolic 134–152; BP diastolic 51–67; PULSE 58–68; RESP 12–20; TEMP 36.6–37; O2SAT 94–100
[2022-01-21] MEDS: Ipratropium/Albuterol Sulfate 3 ML AMPUL.NEB INHALATION (07:19)
--- NOTE | 2022-01-21 08:00 | CT_ITS ---
STUDY: CT BRAIN WITHOUT CONTRAST REASON FOR EXAM: Male, 71 years old. syncope RADIATION DOSAGE (If Supplied By Facility): CTDIvol = ( 47.06 ) mGy, DLP = ( 872.68 ) mGycm TECHNIQUE: Transaxial CT imaging of the brain was performed without administration of intravenous contrast material. Individualized dose optimization techniques were used for this CT. COMPARISON: 12/12/2021 FINDINGS: Normal soft tissue structures. Normal calvarium. There is mild cerebral atrophy with widening of the extra-axial spaces and ventricular dilatation. There are areas of decreased attenuation within the white matter tracts of the supratentorial brain, consistent with microvascular disease changes. Normal basal ganglia and thalami. Normal brainstem. Normal cerebellum. There is no intracranial hemorrhage. There are no findings of an acute ischemic infarction. Normal visualized paranasal sinuses. CT/Brain/Head without Contrast IMPRESSION: Chronic involutional changes of the brain. Electronically Signed: Ashish Salazar MD at 10:28 EST ,
--- NOTE | 2022-01-21 08:10 | PN.HOSP_ITS ---
Subjective Subjective No further events overnight. Objective Data Objective Data Vital Signs: Vital Signs Temp Pulse Resp BP Pulse Ox O2 Del Method FiO2 37.0 C 62 20 H 134/65 H 96 Room Air 32 01/21/22 03:42 01/21/22 07:45 01/21/22 07:20 01/21/22 03:42 01/21/22 07:21 01/21/22 07:21 01/21/22 07:20 Oxygen Delivery Method Room Air Weight: 111.9 kg Body Mass Index (BMI) 34.9 Intake & Output: Intake and Output for Last 24 Hours 01/19/22 01/20/22 01/21/22 23:59 23:59 23:59 Intake Total 1680 / 1680 Output Total 725 / 725 300 / 300 Balance 955 / 955 -300 / -300 Lab / Micro Data Result Diagrams: 01/20/22 05:16 01/20/22 05:16 Labs: Laboratory Results - last 24 hr 01/20/22 12:40: POC Glucose 244 H 01/20/22 16:02: POC Glucose 261 H 01/20/22 21:28: POC Glucose 216 H Radiography Diagnostic Testing: Radiology Impression Echocardiogram 01/19/22 17:05 Interpretation Summary Normal LV size. The estimated ejection fraction is 50 %. Contrast injection was performed. The study was technically limited. The study was technically difficult. Ordering Physician: Lamar Brown Referring Physician: [facility] Performed By: Donna Drake RCS Physical Exam Const alert and no apparent distress Resp normal respiratory effort, no retractions, no use of accessory muscles and clear to auscultation bilaterally Cardio regular rate, regular rhythm, S1 normal heart sound and S2 normal heart sound GI normal to inspection, nondistended, normoactive bowel sounds, soft to palpation, non-tender and non-distended Extremity normal to inspection Assessment & Plan Assessment/Plan (1) Chest pain: QUALIFIERS: Chest pain type: unspecified Qualified Code(s): R07.9 - Chest pain, unspecified PLAN: Stress as negative. No additional cardiac work-up (2) Syncope: QUALIFIERS: Syncope type: psychogenic syncope Qualified Code(s): F48.8 - Other specified nonpsychotic mental disorders PLAN: Syncopal Event suspected secondary to orthostasis with concurrent ongoing chest discomfort: ED evaluation with troponin 19, chest x-ray with stable cardiomegaly with no acute cardiopulmonary findings otherwise, EKG with paced AV rhythm with rate of 60 with a left bundle branch block with no acute ST or T wave changes. Will admit to PCU, place on a monitored bed to assure no acute myocardial infarction with serial cardiac enzymes and EKGs. Will maintain on fall precautions, obtain admission orthostatic and AM orthostatic VS if necessary, judiciously hydrating given underlying diastolic CHF history, will obtain ECHO as well as planned 01/20/2022 Had very lengthy conversation with the patient and his that he has had numerous falls without any injuries with no recognition of when he is getting go out. But when he does fall he falls into a bed or a car seat. I told him that if he were to lose complete control that he would not be able to protect himself and that he should have sustained significant serious injuries at least during some of these falls. I told him that I am concerned for psychosomatic etiology of his conditions. Told that is a diagnosis of exclusion but he has been worked up extensively and seen neurology in the past. We will repeat a head CT in the morning monitor on telemetry and trend interrogate his pacer to see if there is any other organic etiology. Patient did have slight drop in his blood pressure but not enough to qualify as orthostatic hypotension. Head CT that was repeated showed no acute process. No events on telemetry overnight. Pacemaker was interrogated and showed no arrhythmias. Very concerning that this is a psychosomatic response/conversion disorder. His work-up in the hospital here has been negative as well as during previous hospitalizations. Patient has been told several times during this hospitalization that this could be manifestation of underlying stress/anxiety contributing to this. Social work reached out to case management at the [facility] and they will notify the patient's primary so that he can get established with appropriate services for psychiatric evaluation. PLAN: Plan Chronic conditions: * Hx CVA w/ chronic L sided hemiplegia, expressive aphasia: Patient with ongoing chronic deficits, unchanged, will continue aspirin plan BX, statin, temporarily hold being patient home Coreg regimen given hypotension upon presentation and suspected orthostasis as noted. Add back regimen once appropriate. * Chronic COPD with chronic hypoxic respiratory failure (from records suspect 3 L nasal cannula chronic): Will maintain on home oxygen supplementation, continue ATC duonebs, PRN albuterol, HOB, IS parameters. * CAD: Status post CABG and PCI, will continue aspirin and Plavix, continue statin therapy in addition to Ranexa, temporarily holding hypertensive regimen as noted given hypotensive presentation. * Questionable diastolic CHF: Noted in history however [facility] noted LV size and systolic function normal, pacemaker lead in right ventricle, EF 50 to 55%, mildly dilated LA, mild TR, RVSP 25 mmHg Doppler measurements indicate a normal LV diastolic function however given presentation as noted #1 repeat echocardiogram requested, continue aspirin and Plavix, temporarily holding hypertensive regimen given #1 as noted, statin. * Seizure disorder, supposedly ruled out: Patient previously had been on Keppra however recently taken off 10/2021 per neurology at [facility] as lower suspicion for seizure. Encourage continued outpatient follow-up with neurology. * History of pulmonary embolism: Noted history, not currently chronically anticoagulated * Hypertension: Temporarily holding hypertensive regimen as noted given low blood pressure and suspected orthostasis * Hyperlipidemia: Continue statin, FLP in AM. * Diabetes mellitus type II: Hold oral home regimen, continue home insulin regim en, ADA diet with n.p.o. status at midnight, accu checks w/ ISS. * History sick sinus syndrome: Status post pacemaker placement, device interrogation requested given #1. * Chronic macrocytic anemia/Fe deficiency anemia: Admission hemoglobin 12.6, similar to baseline, primarily 11-12 range, will continue to trend, continue supplementation. * Chronic thrombocytopenia: Admission platelets 156, prior 120-150, stable, continue to trend. * Obesity: Weight loss and lifestyle changes encouraged. * BPH: We will continue patient home Flomax and finasteride regimen however given low blood pressure low threshold to hold especially given orthostasis * Anxiety and depression: We will continue patient home escitalopram regimen. * GERD: We will continue patient home oral PPI. * EKATERINA: BiPAP nightly. CODE status: Patient BERTA is his who is present and living will is currently in place. Discussed CODE status at length including difference between FULL code, DNR-CCA and DNR-CC status. Following discussions about the differences in these status, similar to prior presentations requested Full Code status. Advanced Care Planning Face to Face Time: 16 minutes.
[2022-01-21] MEDS: Insulin Lispro 100 UNIT/ML INSULN.PEN SC ×2 (09:02→11:36)
[2022-01-21] MEDS: Escitalopram Oxalate 10 MG Tablet PO (09:05)
[2022-01-21] MEDS: Ranolazine 500 MG Tablet PO (09:05)
[2022-01-21] MEDS: Fenofibrate 48 MG Tablet PO (09:05)
[2022-01-21] MEDS: Pantoprazole Sodium 40 MG Tablet PO (09:05)
[2022-01-21] MEDS: Clopidogrel Bisulfate 75 MG Tablet PO (09:05)
[2022-01-21] MEDS: Ferrous Sulfate 325 MG Tablet PO (09:06)
[2022-01-21] MEDS: Aspirin E.C. 81 MG Tablet PO (09:06)
[2022-01-21] MEDS: Potassium Chloride Oral Tablet 20 MEQ PO (09:06)
[2022-01-21] MEDS: Finasteride 5 MG Tablet PO (09:06)
[2022-01-21] MEDS: Insulin U-500 UNITS/ML PEN 110 UNITS SC (09:24)
--- NOTE | 2022-01-21 09:32 | NURSING ---
Pacer check completed at this time.
--- NOTE | 2022-01-21 09:51 | CASEMGMT ---
Addendum entered by Vida Karimi 01/21/22 11:19: Call back from SW at [facility] and she is updated on all from Dr. Styles's notes, voices understanding. Melba states she will contact pt primary care at [facility], Dr. Sibley, update him and get pt set up with an eval for Dr. Styles's concerns. Melba states she will be in contact with pt/. Dr. Styles updated, voices understanding. Obdulia BERRY CM Original Note: Dr. Styles would like pt set up with counseling appt at [facility], pt's primary care. Message left with Melba Otto MD AYUSH, to call this RN CM back regarding same. CM to follow. Obdulia BERRY CM
--- NOTE | 2022-01-21 11:10 | NURSING ---
Pacemaker check completed this morning by this RN.
[2022-01-21 11:31] LABS: Bedside Glucose 200 mg/dL (74-106)
--- NOTE | 2022-01-21 11:36 | PCM.DC ---
Discharge Instructions Diet Discharge Diet: Low fat / Low cholesterol Follow Up Care Test Results: Test results from this visit will be discussed in further detail at your follow-up appointment, if applicable. Discharge Plan Admission Admit Date/Time: 01/19/22 15:19 Primary Reason for Your Visit: Syncope. Attending Provider: Cirilo Styles Primary Care Provider: [facility] Consulting Providers: Lamar Brown Discharge Orders/Prescriptions Prescriptions: Continued clopidogrel [Plavix] 75 mg tablet 75 mg PO DAILY atorvastatin 80 MG tablet 80 mg PO QHS aspirin 81 MG tablet 81 mg PO DAILY finasteride 5 MG tablet 5 mg PO DAILY escitalopram oxalate 10 MG tablet 10 mg PO DAILY cholecalciferol (vitamin D3) [Vitamin D3] 1,000 UNIT tablet 3,000 units PO DAILY Humulin R U-500 (Conc) Kwikpen 500 UNIT/ML insulin pen 110 unit SQ BID nitroglycerin 0.4 MG tablet, sublingual 0.4 mg sublingual Q5M PRN (Reason: Chest Pain) Qty: 30 0RF Rx Instructions: Place one tab under tongue every 5 minutes x 3 doses as needed pantoprazole 40 MG tablet 40 mg PO BID carvedilol 25 MG tablet 25 mg PO BID potassium chloride [Klor-Con M20] 20 mEq Tablet,Er Particles/Crystals 20 meq PO DAILY ranolazine 500 mg Tablet Extended Release 12 Hr 500 mg PO Q12H acetaminophen [Tylenol] 325 MG tablet 1,300 mg PO DAILY PRN PRN (Reason: Pain) tamsulosin 0.4 MG capsule 0.4 mg PO QHS semaglutide (weight loss) 0.5 mg/0.5 mL Pen Injector 0.5 mg SUBCUT FR glucose 4 gram Tablet,Chewable 16 g PO Q15M PRN (Reason: Hypoglycemia) Rx Instructions: until symptoms of low blood sugar are controlled diclofenac sodium 1 % Gel 1 ea TOPICAL BID magnesium oxide 420 mg Tablet 420 mg PO BID ketoconazole 2 % Shampoo 1 applic TOPICAL DAILY albuterol sulfate 2.5 mg /3 mL (0.083 %) Solution For Nebulization 2.5 mg INHALATION Q6H PRN (Reason: Shortness Of Breath Or Wheezing) guaifenesin 100 mg/5 mL Liquid 200 mg PO TID PRN (Reason: Cough) multivitamin with minerals Tablet 1 tab PO DAILY fenofibrate nanocrystallized 48 mg Tablet 48 mg PO DAILY ferrous sulfate 325 mg (65 mg iron) tablet 325 mg PO BID Discontinued furosemide 40 mg Tablet 40 mg PO DAILY Referrals [facility] - Within 2 Weeks (Very important that you follow up with psychiatry. [facility] ) Disposition Disposition (needs filled in before D/C Order can be placed): Home, Self Care
--- NOTE | 2022-01-21 11:40 | DS.PCM_ITS ---
Providers Date of Admission: 01/19/22 Primary Care Physician: [facility] Reason For Visit: SYNCOPE, CHEST PAIN Diagnosis Discharge Diagnosis (1) Chest pain: Status: Acute Code(s): R07.9 - Chest pain, unspecified Qualifiers: Chest pain type: unspecified Qualified Code(s): R07.9 - Chest pain, unspecified Plan: Stress as negative. No additional cardiac work-up (2) Syncope: Status: Acute Code(s): R55 - Syncope and collapse Qualifiers: Syncope type: psychogenic syncope Qualified Code(s): F48.8 - Other specified nonpsychotic mental disorders Plan: Syncopal Event suspected secondary to orthostasis with concurrent ongoing chest discomfort: ED evaluation with troponin 19, chest x-ray with stable cardiomegaly with no acute cardiopulmonary findings otherwise, EKG with paced AV rhythm with rate of 60 with a left bundle branch block with no acute ST or T wave changes. Will admit to PCU, place on a monitored bed to assure no acute myocardial infarction with serial cardiac enzymes and EKGs. Will maintain on fall precautions, obtain admission orthostatic and AM orthostatic VS if necessary, judiciously hydrating given underlying diastolic CHF history, will obtain ECHO as well as planned 01/20/2022 Had very lengthy conversation with the patient and his that he has had numerous falls without any injuries with no recognition of when he is getting go out. But when he does fall he falls into a bed or a car seat. I told him that if he were to lose complete control that he would not be able to protect himself and that he should have sustained significant serious injuries at least during some of these falls. I told him that I am concerned for psychosomatic etiology of his conditions. Told that is a diagnosis of exclusion but he has been worked up extensively and seen neurology in the past. We will repeat a head CT in the morning monitor on telemetry and trend interrogate his pacer to see if there is any other organic etiology. Patient did have slight drop in his blood pressure but not enough to qualify as orthostatic hypotension. Head CT that was repeated showed no acute process. No events on telemetry o vernight. Pacemaker was interrogated and showed no arrhythmias. Very concerning that this is a psychosomatic response/conversion disorder. His work-up in the hospital here has been negative as well as during previous hospitalizations. Patient has been told several times during this hospitalization that this could be manifestation of underlying stress/anxiety contributing to this. Social work reached out to case management at the [facility] and they will notify the patient's primary so that he can get established with appropriate services for psychiatric evaluation. Plan Chronic conditions: * Hx CVA w/ chronic L sided hemiplegia, expressive aphasia: Patient with ongoing chronic deficits, unchanged, will continue aspirin plan BX, statin, temporarily hold being patient home Coreg regimen given hypotension upon presentation and suspected orthostasis as noted. Add back regimen once appropriate. * Chronic COPD with chronic hypoxic respiratory failure (from records suspect 3 L nasal cannula chronic): Will maintain on home oxygen supplementation, continue ATC duonebs, PRN albuterol, HOB, IS parameters. * CAD: Status post CABG and PCI, will continue aspirin and Plavix, continue statin therapy in addition to Ranexa, temporarily holding hypertensive regimen as noted given hypotensive presentation. * Questionable diastolic CHF: Noted in history however 08/06/20 from [facility] w/ noted LV size and systolic function normal, pacemaker lead in right ventricle, EF 50 to 55%, mildly dilated LA, mild TR, RVSP 25 mmHg Doppler measurements indicate a normal LV diastolic function however given presentation as noted #1 repeat echocardiogram requested, continue aspirin and Plavix, temporarily holding hypertensive regimen given #1 as noted, statin. * Seizure disorder, supposedly ruled out: Patient previously had been on Keppra however recently taken off 10/2021 per neurology at [facility] as lower suspicion for seizure. Encourage continued outpatient follow-up with neurology. * History of pulmonary embolism: Noted history, not currently chronically anticoagulated * Hypertension: Temporarily holding hypertensive regimen as noted given low blood pressure and suspected orthostasis * Hyperlipidemia: Continue statin, FLP in AM. * Diabetes mellitus type II: Hold oral home regimen, continue home insulin regim en, ADA diet with n.p.o. status at midnight, accu checks w/ ISS. * History sick sinus syndrome: Status post pacemaker placement, device interrogation requested given #1. * Chronic macrocytic anemia/Fe deficiency anemia: Admission hemoglobin 12.6, similar to baseline, primarily 11-12 range, will continue to trend, continue supplementation. * Chronic thrombocytopenia: Admission platelets 156, prior 120-150, stable, continue to trend. * Obesity: Weight loss and lifestyle changes encouraged. * BPH: We will continue patient home Flomax and finasteride regimen however given low blood pressure low threshold to hold especially given orthostasis * Anxiety and depression: We will continue patient home escitalopram regimen. * GERD: We will continue patient home oral PPI. * EKATERINA: BiPAP nightly. CODE status: Patient BERTA is his who is present and living will is currently in place. Discussed CODE status at length including difference between FULL code, DNR-CCA and DNR-CC status. Following discussions about the differences in these status, similar to prior presentations requested Full Code status. Advanced Care Planning Face to Face Time: 16 minutes. Medications at Discharge Home Medications aspirin 81 mg tablet,delayed release 81 mg PO DAILY HEART HEALTH 06/11/18 atorvastatin 80 mg tablet 80 mg PO QHS cholesterol 06/11/18 cholecalciferol (vitamin D3) 25 mcg (1,000 unit) tablet (Vitamin D3) 3,000 units PO DAILY supplement 06/11/18 escitalopram oxalate 10 mg tablet 10 mg PO DAILY depression 06/11/18 finasteride 5 mg tablet 5 mg PO DAILY prostate 06/11/18 insulin regular hum U-500 conc 500 unit/mL(3 mL) subcut pen (Humulin R U-500 (Conc) Insulin Kwikpen) 110 unit SQ BID diabetes 06/11/18 nitroglycerin 0.4 mg sublingual tablet 0.4 mg sublingual Q5M PRN Chest Pain #30 TABLETS 07/22/18 pantoprazole 40 mg tablet,delayed release 40 mg PO BID GERD 05/18/20 acetaminophen 325 mg tablet (Tylenol) 1,300 mg PO DAILY PRN PRN Pain 06/22/20 carvedilol 25 mg tablet 25 mg PO BID blood pressure 06/22/20 potassium chloride 20 mEq tablet,extended release(part/cryst) (Klor-Con M) 20 meq PO DAILY supplement 06/22/20 ranolazine 500 mg tablet,extended release,12 hr 500 mg PO Q12H chest pain 06/22/20 tamsulosin 0.4 mg capsule 0.4 mg PO QHS PROSTATE 08/10/20 clopidogrel 75 mg tablet (Plavix) 75 mg PO DAILY blood thinner 01/07/21 semaglutide (weight loss) 0.5 mg/0.5 mL subcutaneous pen injector 0.5 mg subcut FR diabetes 02/24/21 diclofenac sodium 1 % topical gel 1 ea topical BID 08/17/21 glucose 4 gram chewable tablet 16 g PO Q15M PRN Hypoglycemia 08/17/21 albuterol sulfate 2.5 mg/3 mL (0.083 %) solution for nebulization 2.5 mg inhalation Q6H PRN Shortness Of Breath Or Wheezing 12/12/21 fenofibrate nanocrystallized 48 mg tablet 48 mg PO DAILY cholesterol 12/12/21 ferrous sulfate 325 mg (65 mg iron) tablet 325 mg PO BID SUPPLEMENT 12/12/21 guaifenesin 100 mg/5 mL oral liquid 200 mg PO TID PRN Cough 12/12/21 ketoconazole 2 % shampoo 1 applic topical DAILY 12/12/21 magnesium oxide 420 mg tablet 420 mg PO BID SUPPLEMENT 12/12/21 multivitamin with minerals 1 tab PO DAILY SUPPLEMENT 12/12/21 Hospital Course Operations None Procedures 2-D Echocardiogram and Stress test Summary of Care Provided Minutes Spent on Discharge: 40 Weight / BMI Weight Weight: 111.9 kg Body Mass Index (BMI) 34.9 ABG / Lab / Microbiology Data Result Diagrams: 01/20/22 05:16 01/20/22 05:16 Laboratory: Laboratory Results - last 24 hr 01/20/22 12:40: POC Glucose 244 H 01/20/22 16:02: POC Glucose 261 H 01/20/22 21:28: POC Glucose 216 H 01/21/22 08:57: POC Glucose 200 H Radiography Diagnostic Testing: Radiology Impression Echocardiogram 01/19/22 17:05 Interpretation Summary Normal LV size. The estimated ejection fraction is 50 %. Contrast injection was performed. The study was technically limited. The study was technically difficult. Ordering Physician: Lamar Brown Referring Physician: [facility] Performed By: Donna Drake RCS Brain CT 01/21/22 08:00 IMPRESSION: Chronic involutional changes of the brain. Electronically Signed: Ashish Salazar MD at 10:28 EST , D/C Instructions Discharge Diet: Low fat / Low cholesterol Meaningful Use Info Meaningful Use Diagnoses (Choose all that apply): None applicable Discharge Plan Admission Admit Date/Time: 01/19/22 15:19 Primary Reason for Your Visit: Syncope. Attending Provider: Cirilo Styles Primary Care Provider: [facility] Consulting Providers: Lamar Brown Discharge Orders/Prescriptions Prescriptions: Continued clopidogrel [Plavix] 75 mg tablet 75 mg PO DAILY atorvastatin 80 MG tablet 80 mg PO QHS aspirin 81 MG tablet 81 mg PO DAILY finasteride 5 MG tablet 5 mg PO DAILY escitalopram oxalate 10 MG tablet 10 mg PO DAILY cholecalciferol (vitamin D3) [Vitamin D3] 1,000 UNIT tablet 3,000 units PO DAILY Humulin R U-500 (Conc) Kwikpen 500 UNIT/ML insulin pen 110 unit SQ BID nitroglycerin 0.4 MG tablet, sublingual 0.4 mg sublingual Q5M PRN (Reason: Chest Pain) Qty: 30 0RF Rx Instructions: Place one tab under tongue every 5 minutes x 3 doses as needed pantoprazole 40 MG tablet 40 mg PO BID carvedilol 25 MG tablet 25 mg PO BID potassium chloride [Klor-Con M20] 20 mEq Tablet,Er Particles/Crystals 20 meq PO DAILY ranolazine 500 mg Tablet Extended Release 12 Hr 500 mg PO Q12H acetaminophen [Tylenol] 325 MG tablet 1,300 mg PO DAILY PRN PRN (Reason: Pain) tamsulosin 0.4 MG capsule 0.4 mg PO QHS semaglutide (weight loss) 0.5 mg/0.5 mL Pen Injector 0.5 mg SUBCUT FR glucose 4 gram Tablet,Chewable 16 g PO Q15M PRN (Reason: Hypoglycemia) Rx Instructions: until symptoms of low blood sugar are controlled diclofenac sodium 1 % Gel 1 ea TOPICAL BID magnesium oxide 420 mg Tablet 420 mg PO BID ketoconazole 2 % Shampoo 1 applic TOPICAL DAILY albuterol sulfate 2.5 mg /3 mL (0.083 %) Solution For Nebulization 2.5 mg INHALATION Q6H PRN (Reason: Shortness Of Breath Or Wheezing) guaifenesin 100 mg/5 mL Liquid 200 mg PO TID PRN (Reason: Cough) multivitamin with minerals Tablet 1 tab PO DAILY fenofibrate nanocrystallized 48 mg Tablet 48 mg PO DAILY ferrous sulfate 325 mg (65 mg iron) tablet 325 mg PO BID Discontinued furosemide 40 mg Tablet 40 mg PO DAILY Referrals [facility] - Within 2 Weeks (Very important that you follow up with psychiatry. [facility] ) Disposition Disposition (needs filled in before D/C Order can be placed): Home, Self Care Charges/Coding Visit Charges OBSV E&M: 88239 Observation care discharge
--- NOTE | 2022-01-21 11:51 | PHA.DC.MR ---
Pharmacy Service has performed discharge medication reconciliation for this patient. The patient's discharge medication list was reviewed for discrepancies and discrepancies were resolved. Home Medications aspirin 81 mg tablet,delayed release 81 mg PO DAILY HEART HEALTH 06/11/18 atorvastatin 80 mg tablet 80 mg PO QHS cholesterol 06/11/18 cholecalciferol (vitamin D3) 25 mcg (1,000 unit) tablet (Vitamin D3) 3,000 units PO DAILY supplement 06/11/18 escitalopram oxalate 10 mg tablet 10 mg PO DAILY depression 06/11/18 finasteride 5 mg tablet 5 mg PO DAILY prostate 06/11/18 insulin regular hum U-500 conc 500 unit/mL(3 mL) subcut pen (Humulin R U-500 (Conc) Insulin Kwikpen) 110 unit SQ BID diabetes 06/11/18 nitroglycerin 0.4 mg sublingual tablet 0.4 mg sublingual Q5M PRN Chest Pain #30 TABLETS 07/22/18 pantoprazole 40 mg tablet,delayed release 40 mg PO BID GERD 05/18/20 acetaminophen 325 mg tablet (Tylenol) 1,300 mg PO DAILY PRN PRN Pain 06/22/20 carvedilol 25 mg tablet 25 mg PO BID blood pressure 06/22/20 potassium chloride 20 mEq tablet,extended release(part/cryst) (Klor-Con M) 20 meq PO DAILY supplement 06/22/20 ranolazine 500 mg tablet,extended release,12 hr 500 mg PO Q12H chest pain 06/22/20 tamsulosin 0.4 mg capsule 0.4 mg PO QHS PROSTATE 08/10/20 clopidogrel 75 mg tablet (Plavix) 75 mg PO DAILY blood thinner 01/07/21 semaglutide (weight loss) 0.5 mg/0.5 mL subcutaneous pen injector 0.5 mg subcut FR diabetes 02/24/21 diclofenac sodium 1 % topical gel 1 ea topical BID 08/17/21 glucose 4 gram chewable tablet 16 g PO Q15M PRN Hypoglycemia 08/17/21 albuterol sulfate 2.5 mg/3 mL (0.083 %) solution for nebulization 2.5 mg inhalation Q6H PRN Shortness Of Breath Or Wheezing 12/12/21 fenofibrate nanocrystallized 48 mg tablet 48 mg PO DAILY cholesterol 12/12/21 ferrous sulfate 325 mg (65 mg iron) tablet 325 mg PO BID SUPPLEMENT 12/12/21 guaifenesin 100 mg/5 mL oral liquid 200 mg PO TID PRN Cough 12/12/21 ketoconazole 2 % shampoo 1 applic topical DAILY 12/12/21 magnesium oxide 420 mg tablet 420 mg PO BID SUPPLEMENT 12/12/21 multivitamin with minerals 1 tab PO DAILY SUPPLEMENT 12/12/21
[2022-01-21 12:11] LABS: Bedside Glucose 243 mg/dL (74-106)
[2022-01-21] MEDS: Acetaminophen 500 MG Tablet 1000 MG PO (14:34)
== END 2022-01-21 11:39 | disposition home or self-care (01) ==
LOC: ED 14:47 → PCU 16:02
PROVIDERS: Admitting Provider Family Medicine; Emergency Provider Emergency Medicine
DX: R55 Syncope and collapse (principal); I69.354 Hemiplegia and hemiparesis following cerebral infarction affecting left non-dominant side; J44.9 Chronic obstructive pulmonary disease, unspecified; I50.9 Heart failure, unspecified; I11.0 Hypertensive heart disease with heart failure; J96.11 Chronic respiratory failure with hypoxia; E11.9 Type 2 diabetes mellitus without complications; Z79.4 Long term (current) use of insulin; I44.7 Left bundle-branch block, unspecified; D64.9 Anemia, unspecified; Z79.02 Long term (current) use of antithrombotics/antiplatelets; I25.10 Atherosclerotic heart disease of native coronary artery without angina pectoris; R07.9 Chest pain, unspecified; E78.5 Hyperlipidemia, unspecified; Z87.891 Personal history of nicotine dependence; F41.9 Anxiety disorder, unspecified; Z79.82 Long term (current) use of aspirin; I69.320 Aphasia following cerebral infarction; Z79.899 Other long term (current) drug therapy; F32.A Depression, unspecified; E66.9 Obesity, unspecified; G47.33 Obstructive sleep apnea (adult) (pediatric); I25.2 Old myocardial infarction; Z68.34 Body mass index [BMI] 34.0-34.9, adult; Z86.711 Personal history of pulmonary embolism; K21.9 Gastro-esophageal reflux disease without esophagitis; R29.6 Repeated falls
CPT/HCPCS: 36415; 70450; 71045; 78452; 80048; 80053; 80061; 82962; 83735; 84484; 85025; 93005; 93017; 93306; 94002; 94003; 94640; 94762; 96361; 96374; 97162; 97166; 99218; 99251; 99283; A9500; J7030; Q9957; A4216; C8929; G0378; G0463; J2785

== ENCOUNTER 2022-04-11 11:40 | Emergency (ER) | payer OTHER, SELFPAY ==
[2022-04-11] VITALS (7 sets, daily range): BP systolic 135–177; BP diastolic 63–80; PULSE 58–71; RESP 17–24; TEMP 34.4–36.2; O2SAT 97–100; BMI 35.2
--- NOTE | 2022-04-11 12:07 | EDS_ITS ---
HPI History of Present Illness Chief Complaint: Chest Pain Informant: patient and spouse/S.O. Onset/Context/Timing Onset: Yesterday Activity at onset: gradual, onset and activity on onset (unsure) Timing: Continuous Quality: Positive for Pressure (and like needles) Location: Substernal (no radiation) Current Severity: Moderate Maximum Severity: Moderate Worsened By: Nothing Relieved By: Nothing Associated Symptoms: Positive for Dyspnea (since yest) and Cough (more than usual since yest); Negative for Nausea, Vomiting, Diaphoresis, Fever, Lightheadedness or Palpitations Narrative Narrative: Patient started having chest tightness last night after being short of breath more than usual all day yesterday. He states as a result of feeling more short of breath he increased his oxygen. Much of the history comes from the except for yes or no answers from the patient, he is very dysarthric. This led to further discussion about his trouble talking. Apparently he passed out last night after using the restroom and then walking back to his bed and sitting on it, then passed out and laid on the bed for less than 1 minute after which he gradually came around. He has been dysarthric since then. The states he has been having spells like that for years, and usually is dysarthric after it, it may be for hours, it may be for days, but she states that the fact that he is talking funny now after having that syncopal episode last night is not unusual for him at all. He states the chest tightness started before he had the syncopal episode, and not right before. States he has been coughing more than usual. States he has a history of coronary disease, congestive heart failure, and COPD. He cannot tell necessarily which of those problems this is based on his symptoms and how he feels. states he gets Lasix as needed based on the edema of his legs, he has had a little swelling lately so she gave him a dose yesterday. [facility] Medical History Abnormal EKG Anemia Atherosclerotic heart disease [place] coronary artery w/angina pectoris BiPAP (biphasic positive airway pressure) dependence CAD (coronary artery disease) Chest pain Chronic hyperglycemia Chronic respiratory failure Congestive heart failure (CHF) Conversion reaction COPD (chronic obstructive pulmonary disease) Diabetes DM type 2 (diabetes mellitus, type 2) Dysarthria Essential (primary) hypertension Former smoker Hemiparesis, left History of fractured rib History of TIAs Hyperlipidemia Myocardial infarct Obesity On home oxygen therapy EKATERINA (obstructive sleep apnea) Pacemaker Pacemaker battery depletion Pulmonary embolism Sick sinus syndrome Stroke/cerebrovascular accident Wears hearing aid in both ears Home Medications aspirin 81 mg tablet,delayed release 81 mg PO DAILY HEART HEALTH 06/11/18 [History Last Taken 12/11/21] atorvastatin 80 mg tablet 80 mg PO QHS cholesterol 06/11/18 [History Last Taken 12/11/21] cholecalciferol (vitamin D3) 25 mcg (1,000 unit) tablet (Vitamin D3) 3,000 units PO DAILY supplement 06/11/18 [History Last Taken 12/11/21] escitalopram oxalate 10 mg tablet 10 mg PO DAILY depression 06/11/18 [History Last Taken 12/11/21] finasteride 5 mg tablet 5 mg PO DAILY prostate 06/11/18 [History Last Taken 12/11/21] insulin regular hum U-500 conc 500 unit/mL(3 mL) subcut pen (Humulin R U-500 (Conc) Insulin Kwikpen) 110 unit SQ BID diabetes 06/11/18 [History Last Taken 12/12/21] nitroglycerin 0.4 mg sublingual tablet 0.4 mg sublingual Q5M PRN Chest Pain #30 TABLETS 07/22/18 [Rx Last Taken 01/17/20] pantoprazole 40 mg tablet,delayed release 40 mg PO BID GERD 05/18/20 [History Last Taken 12/11/21] acetaminophen 325 mg tablet (Tylenol) 1,300 mg PO DAILY PRN PRN Pain 06/22/20 [History Last Taken 12/11/21] carvedilol 25 mg tablet 25 mg PO BID blood pressure 06/22/20 [History Last Taken 12/11/21] potassium chloride 20 mEq tablet,extended release(part/cryst) (Klor-Con M) 20 meq PO DAILY supplement 06/22/20 [History Last Taken 12/11/21] ranolazine 500 mg tablet,extended release,12 hr 500 mg PO Q12H chest pain 06/22/20 [History Last Taken 12/11/21] tamsulosin 0.4 mg capsule 0.4 mg PO QHS PROSTATE 08/10/20 [History Last Taken 12/11/21] clopidogrel 75 mg tablet (Plavix) 75 mg PO DAILY blood thinner 01/07/21 [History Last Taken 12/11/21] semaglutide (weight loss) 0.5 mg/0.5 mL subcutaneous pen injector 0.5 mg subcut FR diabetes 02/24/21 [History Last Taken 2 Weeks Ago ~11/28/21] diclofenac sodium 1 % topical gel 1 ea topical BID 08/17/21 [History Last Taken Unknown] glucose 4 gram chewable tablet 16 g PO Q15M PRN Hypoglycemia 08/17/21 [History Last Taken Unknown] albuterol sulfate 2.5 mg/3 mL (0.083 %) solution for nebulization 2.5 mg inhalation Q6H PRN Shortness Of Breath Or Wheezing 12/12/21 [History Last Taken 12/12/21] fenofibrate nanocrystallized 48 mg tablet 48 mg PO DAILY cholesterol 12/12/21 [History Last Taken 12/11/21] ferrous sulfate 325 mg (65 mg iron) tablet 325 mg PO BID SUPPLEMENT 12/12/21 [History Last Taken 12/11/21] guaifenesin 100 mg/5 mL oral liquid 200 mg PO TID PRN Cough 12/12/21 [History Last Taken 1 Week Ago ~12/05/21] ketoconazole 2 % shampoo 1 applic topical DAILY 12/12/21 [History Last Taken 1 Week Ago ~12/05/21] magnesium oxide 420 mg tablet 420 mg PO BID SUPPLEMENT 12/12/21 [History Last Taken 12/11/21] multivitamin with minerals 1 tab PO DAILY SUPPLEMENT 12/12/21 [History Last Taken 12/11/21] prednisone 20 mg tablet 20 mg PO DAILY #4 TABLETS 04/11/22 [Rx Last Taken Unknown] Allergy/AdvReac Type Severity Reaction Status Date / Time ezetimibe Allergy Unknown Verified 12/12/21 13:59 Fish Containing Products Allergy Unknown Verified 12/12/21 13:59 glyburide Allergy Unknown Verified 12/12/21 13:59 isosorbide Allergy PT UNSURE Verified 12/12/21 13:59 OF REACTION lisinopril Allergy Unknown Verified 12/12/21 13:59 metformin Allergy Nausea Verified 12/12/21 13:59 metoprolol Allergy Unknown Verified 12/12/21 13:59 simvastatin Allergy Unknown Verified 12/12/21 13:59 gabapentin AdvReac Other Verified 12/12/21 13:59 Family History Father No problems noted. Surgical History H/O coronary artery bypass surgery History of cholecystectomy History of coronary artery stent placement History of knee replacement procedure of left knee History of permanent cardiac pacemaker placement (01/14/21) Social History household members: spouse Smoking Status: Former smoker details: Unknown substance use type: does not use ROS ROS ED Review of Systems ROS Unobtainable: other Details: limited due to dysarthria Constitutional Constitutional ED: Denies chills or fever(s) Eyes Eyes: Denies change in vision ENT ENT ED: Denies rhinorrhea or sore throat Cardiovascular Cardiovascular: Reports as per HPI and chest pain; Denies palpitations Respiratory/Chest Respiratory/Chest: Reports cough, dyspnea, dyspnea on exertion and other Details: occ white sputum, no hemoptysis Gastrointestinal Gastrointestinal: Denies abdominal pain or vomiting Musculoskeletal Musculoskeletal: Denies back pain or neck pain Integumentary Denies abscess or rash Neurologic Neurologic: Reports abnormal speech; Denies headache(s), paresthesias or weakness EXAM Physical Exam Const Vital Signs: 04/11/22 11:41 04/11/22 11:48 04/11/22 11:49 Temperature 97.2 F L Temperature Source Temporal Pulse Rate 58 L 60 Respiratory Rate 18 18 Respiratory Effort Normal Non-Labored Respiratory Pattern Blood Pressure 177/69 H Blood Pressure Mean 105 Pulse Ox 97 100 Oxygen Delivery Method Room Air Nasal Cannula Oxygen Flow Rate (L/min) 4 04/11/22 12:15 04/11/22 12:11 04/11/22 14:33 Temperature Temperature Source Pulse Rate 71 60 Respiratory Rate 24 H 17 Respiratory Effort Respiratory Pattern Tachypnea Blood Pressure 158/68 H Blood Pressure Mean 98 Pulse Ox 97 99 Oxygen Delivery Method Nasal Cannula Oxygen Flow Rate (L/min) 3 3 04/11/22 15:11 Temperature Temperature Source Pulse Rate 60 Respiratory Rate 18 Respiratory Effort Respiratory Pattern Blood Pressure 135/63 H Blood Pressure Mean 87 Pulse Ox 97 Oxygen Delivery Method Room Air Oxygen Flow Rate (L/min) Positive well nourished, well developed and obese General Appearance ED: well developed and NAD Nutritional Appearance: obese HEENT Reports moist mucous membranes normocephalic and atraumatic Eyes PERRL and EOMs intact bilaterally Neck full ROM and supple Resp Resp Narrative: No respiratory distress. Very diminished breath sounds throughout, shallow inspirations. Trachea midline. Cardio regular rate, regular rhythm and no murmurs GI non-tender and non-distended Auscultation: normoactive bowel sounds Palpation: soft Back/Spine no CVA tenderness General Back: other FROM Extremity normal to inspection General Extremety ED: Yes edema; Negative for pulses abnormal or tenderness General Extremity: edema bilateral lower extremity Details: trace; Negative for pulses abnormal Neuro CN's II-XII intact bilaterally and no sensory deficits noted Neuro Narrative: Very dysarthric. No lateralizing peripheral neurologic deficits. Follows commands appropriately. Sensorium / Orientation: awake and alert Motor Exam: strength 5/5 throughout Psych mental status grossly normal Skin no rashes or lesions noted and no wounds Heart Score History: Moderately Suspicious ECG: Normal Age: >/= 65 years Risk Factors: >/= 3 Risk Factors or History of CAD Troponin: </= Normal Limit Score: 5 MDM MDM MDM Narrative Medical decision making narrative: 1 view chest x-ray negative on my interpretation, radiology in agreement, but with his history of coronary disease, obtained also cardiac work-up including a 2-hour delta troponin. Those are both negative with the second 1 actually lower than the initial 1, and with his dyspnea obtained a BNP, that is well within normal limits, with that and his x-ray appearing unremarkable along with just wheezing in his lungs, this essentially rules out acute decompensated congestive heart failure as cause for his symptoms. With the nebulizer treatment his breathing was better, but he is still having chest discomfort and the complaint of left arm discomfort. While awaiting the delta troponin to return, he was given a GI cocktail which resulted in complete resolution of his chest and arm discomfort. Uncomfortable sending him home right now. He is already on pantoprazole twice daily for GERD. He wants to know what was in the GI cocktail so I can get some. We discussed this, and also putting him on prednisone half dosing for short burst (diabetic with poorly controlled sugars) to help what I suspect may be an early COPD exacerbation. Without signs or symptoms of significant infection, I do not think he needs antibiotics at this time. Lab Data Attestation: I reviewed the patient's lab results. Labs: Laboratory Results - last 24 hr 04/11/22 04/11/22 04/11/22 11:51 11:51 11:51 WBC 4.9 RBC 4.16 L Hgb 13.5 Hct 41.2 MCV 99.0 H MCH 32.5 H MCHC 32.8 RDW Std Deviation 47.5 H RDW Coeff of Cinda 13.2 Plt Count 149 L MPV 11.0 Immature Gran % (Auto) 0.800 Neut % (Auto) 67.2 Lymph % (Auto) 22.0 [place] % (Auto) 6.7 Eos % (Auto) 2.9 Baso % (Auto) 0.4 Absolute Neuts (auto) 3.3 Absolute Lymphs (auto) 1.08 Nucleated RBC % 0 Sodium 139 Potassium 4.1 Chloride 102 Carbon Dioxide 29.0 Anion Gap 8 BUN 22 H Creatinine 1.17 Estim Creat Clear Calc 59.79 Est GFR (MDRD) Af Amer 79 Est GFR (MDRD) Non-Af 65 BUN/Creatinine Ratio 18.8 Glucose 266 H Calcium 8.7 Troponin I High Sens 29 B-Natriuretic Peptide 59.9 04/11/22 14:35 WBC RBC Hgb Hct MCV MCH MCHC RDW Std Deviation RDW Coeff of Cinda Plt Count MPV Immature Gran % (Auto) Neut % (Auto) Lymph % (Auto) [place] % (Auto) Eos % (Auto) Baso % (Auto) Absolute Neuts (auto) Absolute Lymphs (auto) Nucleated RBC % Sodium Potassium Chloride Carbon Dioxide Anion Gap BUN Creatinine Estim Creat Clear Calc Est GFR (MDRD) Af Amer Est GFR (MDRD) Non-Af BUN/Creatinine Ratio Glucose Calcium Troponin I High Sens 22 B-Natriuretic Peptide Radiography Diagnostic Testing: Clinical Impression(s) from Imaging Studies Chest X-Ray 04/11/22 12:32 IMPRESSION: Cardiomegaly. No acute abnormality is seen. Electronically Signed: Mick García MD at 13:09 EST , Rhythm Strip Rhythm Strip: paced Rate: 60 Ectopy: None EKG Initial EKG: Attestation: I personally reviewed and interpreted this EKG as follows: Interpretation: No Acute Injury Pattern and Paced (AV pace/capture) Prior EKG tracings: available for review Prior: Unchanged Discharge Plan Triage Chief Complaint: Chest Pain Other Complaint: Shortness of Breath ED Provider: Shai Hassan Dx/Rx/DC Orders Clinical Impression: Acute exacerbation of chronic obstructive pulmonary disease (COPD), Chest pain due to GERD, Syncope, Dysarthria Instructions: Medicines for GERD, ED COPD Flare Prescriptions: New prednisone 20 mg tablet 20 mg PO DAILY Qty: 4 0RF No Action clopidogrel [Plavix] 75 mg tablet 75 mg PO DAILY atorvastatin 80 MG tablet 80 mg PO QHS aspirin 81 MG tablet 81 mg PO DAILY finasteride 5 MG tablet 5 mg PO DAILY escitalopram oxalate 10 MG tablet 10 mg PO DAILY cholecalciferol (vitamin D3) [Vitamin D3] 1,000 UNIT tablet 3,000 units PO DAILY Humulin R U-500 (Conc) Kwikpen 500 UNIT/ML insulin pen 110 unit SQ BID nitroglycerin 0.4 MG tablet, sublingual 0.4 mg sublingual Q5M PRN (Reason: Chest Pain) Qty: 30 0RF Rx Instructions: Place one tab under tongue every 5 minutes x 3 doses as needed pantoprazole 40 MG tablet 40 mg PO BID carvedilol 25 MG tablet 25 mg PO BID potassium chloride [Klor-Con M20] 20 mEq Tablet,Er Particles/Crystals 20 meq PO DAILY ranolazine 500 mg Tablet Extended Release 12 Hr 500 mg PO Q12H acetaminophen [Tylenol] 325 MG tablet 1,300 mg PO DAILY PRN PRN (Reason: Pain) tamsulosin 0.4 MG capsule 0.4 mg PO QHS semaglutide (weight loss) 0.5 mg/0.5 mL Pen Injector 0.5 mg SUBCUT FR glucose 4 gram Tablet,Chewable 16 g PO Q15M PRN (Reason: Hypoglycemia) Rx Instructions: until symptoms of low blood sugar are controlled diclofenac sodium 1 % Gel 1 ea TOPICAL BID magnesium oxide 420 mg Tablet 420 mg PO BID ketoconazole 2 % Shampoo 1 applic TOPICAL DAILY albuterol sulfate 2.5 mg /3 mL (0.083 %) Solution For Nebulization 2.5 mg INHALATION Q6H PRN (Reason: Shortness Of Breath Or Wheezing) guaifenesin 100 mg/5 mL Liquid 200 mg PO TID PRN (Reason: Cough) multivitamin with minerals Tablet 1 tab PO DAILY fenofibrate nanocrystallized 48 mg Tablet 48 mg PO DAILY ferrous sulfate 325 mg (65 mg iron) tablet 325 mg PO BID [facility] Care Provider: [facility] Referrals: [facility] [Primary Care Provider] - 3-5 Days if not improving Activity Restrictions/Additional Instructions: If you have recurrent chest discomfort, you may try taking Mylanta II or Maalox advanced in addition to the pantoprazole you are already prescribed and should continue taking. When you fill the prednisone, the first dose is to be taken tomorrow 04/12 since you already received a dose in the emergency department for the day of 04/11. Disposition Disposition: Home, Self Care
[2022-04-11] MEDS: Ipratropium/Albuterol Sulfate 3 ML AMPUL.NEB INHALATION (12:20)
--- NOTE | 2022-04-11 12:32 | RAD_ITS ---
STUDY: X-RAY CHEST REASON FOR EXAM: Male, 71 years old. Chest pain TECHNIQUE: Single AP portable view of the chest. COMPARISON: Comparison is made with prior study dated 01/19/2022. FINDINGS: EKG electrodes are seen. The lungs are clear and expanded. There is no demonstrated pleural abnormality. Sternal cerclage wires and vascular clips are present from a prior sternotomy and coronary artery bypass graft procedure (CABG). Cardiomegaly. A left-sided pacemaker is seen. Normal mediastinum and cata. Normal visualized pulmonary arteries. There is atherosclerotic tortuosity of the aortic arch and descending thoracic aorta. There are diffuse degenerative changes of the visualized thoracic spine. There has been prior multilevel left rib fracture repair with screw and fixation devices. There is no demonstrated abnormality of the visualized soft tissue structures of the upper abdomen. RAD/Chest 1 View (Portable) IMPRESSION: Cardiomegaly. No acute abnormality is seen. Electronically Signed: Mick García MD at 13:09 EST ,
[2022-04-11 12:36] LABS: Anion Gap 8 (5-15); BUN 22 mg/dL (7-18); BUN/Creat Ratio 18.8 RATIO (10-20); Calcium,Total 8.7 mg/dL (8.5-10.1); Chloride 102 mmol/L (98-107); Creatinine, Serum 1.17 mg/dL (0.70-1.30); EST Glomerular Filtration Rate 65 mL/min (>60); Est Glom Filt Rate - Afr Amer 79 mL/min (>60); Estimated Creatinine Clearance 59.79 ml/min; Glucose 266 mg/dL (74-106); Potassium 4.1 mmol/L (3.5-5.1); Sodium Level 139 mmol/L (136-145); Troponin-I HS 29 pg/mL (3.0-78.0)
[2022-04-11 12:38] LABS: Absolute Lymphocyte Count 1.08 X10^3/uL (0.83-4.51); Absolute Neutrophil Count 3.3 X10^3/uL (2.0-7.7); Basophil# 0.02 X10^3/uL; Basophil% 0.4 % (0-1); Eosinophil# 0.14 X10^3/uL; Eosinophils% 2.9 % (0-5); Hematocrit 41.2 % (40-54); Hemoglobin 13.5 g/dL (13.0-16.5); Lymphocyte # 1.08 X10^3/ul (0.83-4.51); Mean Corp Hgb Conc 32.8 g/dL (32-36); Mean Corpuscular Hgb 32.5 pg (27.0-32.0); Monocyte# 0.33 X10^3/uL; Monocyte% 6.7 % (0-10); NRBC Flagged by Analyzer 0 % (0-5); Neutrophil % 67.2 % (47-70); Platelet Count 149 K/mm3 (150-450); RBC Distribution Width CV 13.2 % (11.6-14.6); RBC Distribution Width SD 47.5 fl (35.1-43.9); Red Blood Count 4.16 M/mm3 (4.6-6.2); White Blood Count 4.9 K/mm3 (4.4-11.0)
[2022-04-11 13:06] LABS: BNP,B-Type NATRIURETIC PEPTIDE 59.9 pg/mL (0-100)
[2022-04-11] MEDS: Mag Hydrox/Al Hydrox/Simeth 30 ML UDC PO (14:31)
[2022-04-11 15:01] LABS: Troponin-I HS 22 pg/mL (3.0-78.0)
[2022-04-11] MEDS: predniSONE 20 MG Tablet PO (16:07)
== END 2022-04-11 16:19 | disposition home or self-care (01) ==
PROVIDERS: Emergency Provider Emergency Medicine; Visit Provider Emergency Medicine
DX: J44.1 Chronic obstructive pulmonary disease with (acute) exacerbation (principal); I11.0 Hypertensive heart disease with heart failure; I50.9 Heart failure, unspecified; E11.9 Type 2 diabetes mellitus without complications; Z79.4 Long term (current) use of insulin; R55 Syncope and collapse; Z87.891 Personal history of nicotine dependence; K21.9 Gastro-esophageal reflux disease without esophagitis; E78.5 Hyperlipidemia, unspecified; I25.10 Atherosclerotic heart disease of native coronary artery without angina pectoris; Z79.899 Other long term (current) drug therapy; R47.1 Dysarthria and anarthria; G47.33 Obstructive sleep apnea (adult) (pediatric); Z99.81 Dependence on supplemental oxygen; E66.9 Obesity, unspecified; Z95.0 Presence of cardiac pacemaker; Z79.82 Long term (current) use of aspirin; Z95.1 Presence of aortocoronary bypass graft
CPT/HCPCS: 71045; 80048; 83880; 84484; 85025; 93005; 94640; 99285; A4216

== ENCOUNTER 2022-04-15 09:09 | Observation (INO) | payer OTHER, SELFPAY ==
[2022-04-15] VITALS (18 sets, daily range): BP systolic 143–166; BP diastolic 67–89; PULSE 59–69; RESP 14–18; TEMP 36.1–36.7; O2SAT 96–100; BMI 36.7; BMI 47.5
--- NOTE | 2022-04-15 09:18 | CT_ITS ---
STUDY: CT HEAD STROKE PROTOCOL W/O CONTRAST INJECTION REASON FOR EXAM: Male, 71 years old. Neuro deficit, acute, stroke suspected RADIATION DOSAGE (If Supplied By Facility): CTDIvol = ( 44.99 ) mGy, DLP = ( 796.11 ) mGycm TECHNIQUE: Transaxial CT imaging of the brain was performed without administration of intravenous contrast material. Individualized dose optimization techniques were used for this CT. COMPARISON: Comparison is made with prior study dated 01/21/2022. FINDINGS: Normal soft tissue structures. Normal calvarium. There is mild cerebral atrophy with widening of the extra-axial spaces and ventricular dilatation. There are areas of decreased attenuation within the white matter tracts of the supratentorial brain, consistent with microvascular disease changes. Normal basal ganglia and thalami. Normal brainstem. Normal cerebellum. There is no intracranial hemorrhage. There are no findings of an acute ischemic infarction. Atherosclerotic plaque formation of the cavernous portions of the internal carotid arteries bilaterally. Normal visualized paranasal sinuses. ASPECT score: 10 CT/STROKE Brain/Head without Cont IMPRESSION: Chronic involutional changes of the brain. N.B. : The above Results were Read Back by Mick García MD to Dr Mo MD, and understanding confirmed on 04/15/2022 09:37:22 (ET). Electronically Signed: Mick García MD at 9:38 EST ,
--- NOTE | 2022-04-15 09:18 | CT_ITS ---
STUDY: CTA HEAD AND NECK WITH CONTRAST REASON FOR EXAM: Male, 71 years old. Neuro deficit, acute, stroke suspected RADIATION DOSAGE (If Supplied By Facility): CTDIvol = ( 24.74 ) mGy, DLP = ( 774.61 ) mGycm TECHNIQUE: CT angiography was performed with a multi-detector CT scanner. Data acquisition was obtained from the skull base through the vertex following intravenous administration of IV 100mL [id number]-[id number]. MIP images were reconstructed from the axial data set. Post-processing of the angiographic images was performed, with multiplanar reformation and 3D reconstruction. Individualized dose optimization techniques were used for this CT. COMPARISON: Comparison is made with prior study 10/11/2021. FINDINGS: Normal bilateral petrous carotid arteries. Normal right cavernous carotid artery with a normal supraclinoid bifurcation. Normal left cavernous carotid artery with a normal supraclinoid bifurcation. Normal right A1 segments of the anterior cerebral artery. Normal left A1 segments of the anterior cerebral artery. Normal intact anterior communicating artery (ACOM). Normal bilateral A2 segments of the anterior cerebral arteries. Normal right M1 and M2 segments of the middle cerebral arteries, with a normal M1 bifurcation. Normal left M1 and M2 segments of the middle cerebral arteries, with a normal M1 bifurcation. Normal right posterior communicating artery (PCOM). Normal left posterior communicating artery (PCOM). Normal bilateral vertebral arteries. Normal basilar artery with a normal basilar bifurcation. The visualized bilateral superior cerebellar (SCA) arteries are normal. Normal bilateral P1, P2 and visualized P3 segments of the posterior cerebral arteries. There is no demonstrated aneurysm of the [place] of [place]. There is no demonstrated abnormality of the visualized brain. AORTIC ARCH: There is atherosclerotic calcific plaque formation of the aortic arch and great vessels arising from the aortic arch, without a hemodynamically significant stenosis. There is a normal origin of the brachiocephalic, left common carotid, and left subclavian arteries. Atherosclerotic calcific plaques at the origin of the great vessels of the neck. Prior CABG. RIGHT CAROTID ARTERIES: Normal right common carotid artery (CCA). Normal right common carotid bulb. There is mild atherosclerotic plaque formation of the origin of the right internal carotid artery with less than 50% cross sectional diameter stenosis. Normal visualized cervical portion of the right internal carotid artery. Normal origin of the right external carotid artery (ECA). LEFT CAROTID ARTERIES: Normal left common carotid artery (CCA). Normal left common carotid bulb. There is mild atherosclerotic plaque formation of the origin of the left internal carotid artery with less than 50% cross sectional diameter stenosis. Normal visualized cervical portion of the left internal carotid artery. Normal origin of the left external carotid artery (ECA). VERTEBRAL ARTERIES: Normal bilateral vertebral arteries. CT/STROKE CTA Head AND Neck W/Con IMPRESSION: Mild degree of calcific plaques at the origin of the right and left internal carotid arteries causing less than 50% stenosis. N.B. : The above Results were Read Back by Mick García MD to Dr Mo MD, and understanding confirmed on 04/15/2022 09:52:57 (ET). Electronically Signed: Mick García MD at 9:54 EST ,
--- NOTE | 2022-04-15 09:18 | EKG12_ITS ---
Test Reason : STROKE TEAM Blood Pressure : / mmHG Vent. Rate : 065 BPM Atrial Rate : 065 BPM P-R Int : 000 ms QRS Dur : 204 ms QT Int : 526 ms P-R-T Axes : 103 -66 103 degrees QTc Int : 547 ms Ventricular-paced rhythm Abnormal ECG Confirmed by PADILLA GUALLPA, CALI ([id number]), web content editor NADINE FERRER ([id number]) on 04/16/2022 1:30:18 PM Referred By: Confirmed By:CALI CAUSEY MD
--- NOTE | 2022-04-15 09:19 | EDS_ITS ---
HPI History of Present Illness Chief Complaint: Chest Pain Narrative Narrative: History extremely limited from this patient due to dense expressive aphasia. EMS brought him because of headache and pain in the right side of his neck. When he arrived here, he indicated to staff that he was having some chest pain. Patient indicates that he had a spell around 5 AM this morning, he arrives here just after 9 AM. No one else is here with him at this time to help provide history, and I saw him after the EMS personnel left. I saw the patient 2 or 3 days ago, he was here for chest discomfort, we ruled out ACS, his chest discomfort was made better after GI cocktail, and he was having trouble speaking then but the said that this is typical for him after he has a spell of passing out which she has been doing for years. Today he is not able to talk again, which greatly limits the history. However, staff states right before my evaluation, he was moving all 4 extremities normally and showing 10 fingers to indicate the #10 for them, using both hands. [facility] Medical History Abnormal EKG Anemia Atherosclerotic heart disease [place]-[employer] [place] coronary artery w/angina pectoris BiPAP (biphasic positive airway pressure) dependence CAD (coronary artery disease) Chest pain Chronic hyperglycemia Chronic respiratory failure Congestive heart failure (CHF) Conversion reaction COPD (chronic obstructive pulmonary disease) Diabetes DM type 2 (diabetes mellitus, type 2) Dysarthria Essential (primary) hypertension Former smoker Hemiparesis, left History of fractured rib History of TIAs Hyperlipidemia Myocardial infarct Obesity On home oxygen therapy EKATERINA (obstructive sleep apnea) Pacemaker Pacemaker battery depletion Pulmonary embolism Sick sinus syndrome Stroke/cerebrovascular accident Wears hearing aid in both ears Home Medications aspirin 81 mg tablet,delayed release 81 mg PO DAILY HEART HEALTH 06/11/18 [History Last Taken 04/14/22] atorvastatin 80 mg tablet 80 mg PO QHS cholesterol 06/11/18 [History Last Taken 04/14/22] cholecalciferol (vitamin D3) 25 mcg (1,000 unit) tablet (Vitamin D3) 3,000 units PO DAILY supplement 06/11/18 [History Last Taken 04/14/22] escitalopram oxalate 10 mg tablet 10 mg PO DAILY depression 06/11/18 [History Last Taken 04/14/22] finasteride 5 mg tablet 5 mg PO DAILY prostate 06/11/18 [History Last Taken 04/14/22] insulin regular hum U-500 conc 500 unit/mL(3 mL) subcut pen (Humulin R U-500 (Conc) Insulin Kwikpen) 110 unit SQ BID diabetes 06/11/18 [History Last Taken 04/14/22] nitroglycerin 0.4 mg sublingual tablet 0.4 mg sublingual Q5M PRN Chest Pain #30 TABLETS 07/22/18 [Rx Last Taken 01/17/20] pantoprazole 40 mg tablet,delayed release 40 mg PO BID GERD 05/18/20 [History Last Taken 04/14/22] acetaminophen 325 mg tablet (Tylenol) 1,300 mg PO DAILY PRN PRN Pain 06/22/20 [History Last Taken 12/11/21] carvedilol 25 mg tablet 25 mg PO BID blood pressure 06/22/20 [History Last Taken 04/14/22] potassium chloride 20 mEq tablet,extended release(part/cryst) (Klor-Con M) 20 meq PO DAILY supplement 06/22/20 [History Last Taken 04/14/22] ranolazine 500 mg tablet,extended release,12 hr 500 mg PO Q12H chest pain 06/22/20 [History Last Taken 04/14/22] tamsulosin 0.4 mg capsule 0.4 mg PO QHS PROSTATE 08/10/20 [History Last Taken 04/14/22] clopidogrel 75 mg tablet (Plavix) 75 mg PO DAILY blood thinner 01/07/21 [History Last Taken 04/14/22] semaglutide (weight loss) 0.5 mg/0.5 mL subcutaneous pen injector 0.5 mg subcut FR diabetes 02/24/21 [History Last Taken 2 Weeks Ago ~11/28/21] diclofenac sodium 1 % topical gel 1 ea topical BID pain 08/17/21 [History Last Taken 04/14/22] glucose 4 gram chewable tablet 16 g PO Q15M PRN Hypoglycemia 08/17/21 [History Last Taken Unknown] albuterol sulfate 2.5 mg/3 mL (0.083 %) solution for nebulization 2.5 mg inhalation Q6H PRN Shortness Of Breath Or Wheezing 12/12/21 [History Last Taken 12/12/21] fenofibrate nanocrystallized 48 mg tablet 48 mg PO DAILY cholesterol 12/12/21 [History Last Taken 04/14/22] ferrous sulfate 325 mg (65 mg iron) tablet 325 mg PO BID SUPPLEMENT 12/12/21 [History Last Taken 04/14/22] guaifenesin 100 mg/5 mL oral liquid 200 mg PO TID PRN Cough 12/12/21 [History Last Taken 1 Week Ago ~12/05/21] ketoconazole 2 % shampoo 1 applic topical DAILY 12/12/21 [History Last Taken 04/14/22] magnesium oxide 420 mg tablet 420 mg PO BID SUPPLEMENT 12/12/21 [History Last Taken 04/14/22] multivitamin with minerals 1 tab PO DAILY SUPPLEMENT 12/12/21 [History Last Taken 04/14/22] prednisone 20 mg tablet 20 mg PO DAILY #4 TABLETS 04/11/22 [Rx Last Taken 04/14/22] Allergy/AdvReac Type Severity Reaction Status Date / Time ezetimibe Allergy Unknown Verified 04/15/22 09:18 Fish Containing Products Allergy Unknown Verified 04/15/22 09:18 glyburide Allergy Unknown Verified 04/15/22 09:18 isosorbide Allergy PT UNSURE Verified 04/15/22 09:18 OF REACTION lisinopril Allergy Unknown Verified 04/15/22 09:18 metformin Allergy Nausea Verified 04/15/22 09:18 metoprolol Allergy Unknown Verified 04/15/22 09:18 simvastatin Allergy Unknown Verified 04/15/22 09:18 gabapentin AdvReac Other Verified 04/15/22 09:18 Family History Father No problems noted. Surgical History H/O coronary artery bypass surgery History of cholecystectomy History of coronary artery stent placement History of knee replacement procedure of left knee History of permanent cardiac pacemaker placement (01/14/21) Social History household members: spouse Smoking Status: Former smoker details: Unknown substance use type: does not use ROS ROS ED Review of Systems ROS Unobtainable: other Details: Expressive aphasia Gastrointestinal Gastrointestinal: Denies abdominal pain or nausea Musculoskeletal Musculoskeletal: Reports neck pain Neurologic Neurologic: Reports headache(s) and weakness EXAM Physical Exam Const Vital Signs: 04/15/22 09:11 04/15/22 09:19 04/15/22 09:10 Temperature 96.9 F L 96.9 F L Temperature Source Temporal Temporal Pulse Rate 60 60 Respiratory Rate 15 18 Respiratory Effort Normal Non-Labored Respiratory Pattern Normal Blood Pressure 156/85 H 156/85 H Blood Pressure Mean 108 108 Pulse Ox 96 96 Oxygen Delivery Method Nasal Cannula Nasal Cannula Oxygen Flow Rate (L/min) 2 2 04/15/22 09:18 04/15/22 09:48 Temperature Temperature Source Pulse Rate 60 Respiratory Rate 18 Respiratory Effort Respiratory Pattern Blood Pressure 161/89 H Blood Pressure Mean 113 Pulse Ox 96 99 Oxygen Delivery Method Nasal Cannula Nasal Cannula Oxygen Flow Rate (L/min) 2 2 Positive well nourished, well developed and obese General Appearance ED: well developed and NAD Nutritional Appearance: obese HEENT Reports moist mucous membranes normocephalic and atraumatic Eyes PERRL and EOMs intact bilaterally Neck full ROM, no lymphadenopathy and supple Chest Wall inspection of chest normal and palpation of chest normal Chest Narrative: Well-healed midline scar Resp normal respiratory effort and clear to auscultation bilaterally Cardio regular rate, regular rhythm and no murmurs GI non-tender and non-distended Auscultation: normoactive bowel sounds Palpation: soft Back/Spine General Back: other FROM Extremity normal to inspection General Extremety ED: Negative for edema, pulses abnormal or tenderness General Extremity: Negative for edema or pulses abnormal Neuro CN's II-XII intact bilaterally Neuro Narrative: No gross facial droop. Dense expressive aphasia, moaning, shakes his head yes or no to answer questions, seemingly appropriately. Sensorium / Orientation: awake and alert Skin no rashes or lesions noted and no wounds NIHSS NIHSS Initial: 1a Level of Consciousness: 0 1b LOC Questions (Score 2 if aphasic/stupor): 2 1c LOC Commands (Only score 1st attempt): 0 2 Best Gaze (If aphasic, use reflexive mvmts.): 0 3 Visual: 0 4 Facial Palsy: 0 5 Motor Arm Right (UN = amputation/fusion): 0 5 Motor Arm Left: 3 6 Motor Leg Right: 0 6 Motor Leg Left: 3 7 Limb ataxia (Only + if out of proportion): 0 8 Sensory (Aphasia/stupor=0 or 1, coma=2): 1 9 Best Language: 3 10 Dysarthria (mute, coma=2, intubated=UN): 2 11 Extinction and Inattention (only scored if +): 0 Total Score: 14 MDM MDM MDM Narrative Medical decision making narrative: On my initial evaluation just after the patient arrived here, he clearly is weak in his left arm and leg. I helped him passively to lift his arm, he states it is not painful it is weak and he just cannot lift it. Nursing states they just evaluated him 5 minutes ago upon EMS arrival with them, and he was moving his arms and legs normally. I am not able to get a good history from the patient. Therefore I called a stroke alert to expedite testing and evaluation further. Discussed with radiologist Dr. García, CT and CTA negative for any acute. He does have bilateral internal carotid disease less than 50%. His blood pressure is remained relatively stable in the 150s. According to the history obtained 2 days ago, this was common for the patient but he did not have left-sided hemiparesis then as he does now. His chest pain work-up again is unremarkable. Plan is for admission and further evaluation. Discussed with Dr. Holman, hospitalist who is in agreement. arrives. I reevaluated the patient. He still has left hemiparesis and expressive aphasia without a facial droop. She states he has had episodes like this in the past where he had left hemiparesis. She states his episodes are getting worse. Lab Data Attestation: I reviewed the patient's lab results. Labs: Laboratory Results - last 24 hr 04/15/22 04/15/22 04/15/22 09:20 09:20 09:20 WBC 7.3 RBC 4.10 L Hgb 13.4 Hct 39.6 L MCV 96.6 H MCH 32.7 H MCHC 33.8 RDW Std Deviation 45.2 H RDW Coeff of Cinda 12.8 Plt Count 129 L MPV 10.9 Immature Gran % (Auto) 0.500 Neut % (Auto) 66.4 Lymph % (Auto) 25.6 Brewster % (Auto) 5.9 Eos % (Auto) 1.2 Baso % (Auto) 0.4 Absolute Neuts (auto) 4.9 Absolute Lymphs (auto) 1.87 Nucleated RBC % 0 PT 14.6 INR 1.2 APTT 32.9 Sodium 140 Potassium 3.6 Chloride 102 Carbon Dioxide 33.0 H Anion Gap 5 BUN 26 H Creatinine 1.15 Estim Creat Clear Calc 60.83 Est GFR (MDRD) Af Amer 80 Est GFR (MDRD) Non-Af 67 BUN/Creatinine Ratio 22.6 H Glucose 228 H Calcium 8.6 Troponin I High Sens 34 POC Glucose 04/15/22 10:05 WBC RBC Hgb Hct MCV MCH MCHC RDW Std Deviation RDW Coeff of Cinda Plt Count MPV Immature Gran % (Auto) Neut % (Auto) Lymph % (Auto) Brewster % (Auto) Eos % (Auto) Baso % (Auto) Absolute Neuts (auto) Absolute Lymphs (auto) Nucleated RBC % PT INR APTT Sodium Potassium Chloride Carbon Dioxide Anion Gap BUN Creatinine Estim Creat Clear Calc Est GFR (MDRD) Af Amer Est GFR (MDRD) Non-Af BUN/Creatinine Ratio Glucose Calcium Troponin I High Sens POC Glucose 205 H Radiography Diagnostic Testing: Clinical Impression(s) from Imaging Studies Brain CT 04/15/22 09:18 IMPRESSION: Chronic involutional changes of the brain. N.B. : The above Results were Read Back by Mick García MD to Dr Mo MD, and understanding confirmed on 04/15/2022 09:37:22 (ET). Electronically Signed: Mick García MD at 9:38 EST , ADDENDUM: 04/15/22 0945 IMPRESSION: Chronic involutional changes of the brain. N.B. : The above Results were Read Back by Mick García MD to Dr Mo MD, and understanding confirmed on 04/15/2022 09:37:22 (ET). Electronically Signed: Mick García MD at 9:38 EST , Head/Neck CTA 04/15/22 09:18 IMPRESSION: Mild degree of calcific plaques at the origin of the right and left internal carotid arteries causing less than 50% stenosis. N.B. : The above Results were Read Back by Mick García MD to Dr Mo MD, and understanding confirmed on 04/15/2022 09:52:57 (ET). Electronically Signed: Mick García MD at 9:54 EST , ADDENDUM: 04/15/22 1001 IMPRESSION: Mild degree of calcific plaques at the origin of the right and left internal carotid arteries causing less than 50% stenosis. N.B. : The above Results were Read Back by Mick García MD to Dr Mo MD, and understanding confirmed on 04/15/2022 09:52:57 (ET). Electronically Signed: Mick García MD at 9:54 EST , Chest X-Ray 04/15/22 09:51 IMPRESSION: Stable examination. No acute abnormality is seen. Electronically Signed: Mick García MD at 10:15 EST , Rhythm Strip Rhythm Strip: paced Rate: 65 Ectopy: None EKG Initial EKG: Attestation: I personally reviewed and interpreted this EKG as follows: Interpretation: No Acute Injury Pattern and Paced Prior EKG tracings: available for review Prior: Unchanged Stroke Documentation Questions Stroke Team Activated: Yes Was Patient considered for Endovascular Intervention?: No-CTA negative, determined not to be an endovascular candidate IV Thrombolytic Administered: No (Per [facility] recommendation, difficult to determine time of onset which I agree ) Critical Care Time Critical Care Time: Yes Critical care time (excluding procedures): 30-74 minutes (35 min), Including time spent:, Discussing w/Patient &/or Family/Interior Design Instructor, Discussing w /Consultants, Arranging Admission or Transfer and Performing Direct Patient Care at Bedside Discharge Plan Dx/Rx/DC Orders Clinical Impression: Chest pain, Syncope, Expressive aphasia, Acute left hemiparesis Disposition Disposition: Acute Care [facility]
[2022-04-15 09:28] LABS: Absolute Lymphocyte Count 1.87 X10^3/uL (0.83-4.51); Absolute Neutrophil Count 4.9 X10^3/uL (2.0-7.7); Basophil# 0.03 X10^3/uL; Basophil% 0.4 % (0-1); Eosinophil# 0.09 X10^3/uL; Eosinophils% 1.2 % (0-5); Hematocrit 39.6 % (40-54); Hemoglobin 13.4 g/dL (13.0-16.5); Lymphocyte # 1.87 X10^3/ul (0.83-4.51); Lymphocyte % 25.6 % (19-41); Mean Corp Hgb Conc 33.8 g/dL (32-36); Mean Corpuscular Hgb 32.7 pg (27.0-32.0); Mean Corpuscular Volume 96.6 fL (80-94); Mean Platelet Vol. 10.9 fl (6.2-12.0); Monocyte# 0.43 X10^3/uL; Monocyte% 5.9 % (0-10); NRBC Flagged by Analyzer 0 % (0-5); Neutrophil # 4.85 X10^3/uL (2.7-7.7); Neutrophil % 66.4 % (47-70); Platelet Count 129 K/mm3 (150-450); RBC Distribution Width CV 12.8 % (11.6-14.6); RBC Distribution Width SD 45.2 fl (35.1-43.9); White Blood Count 7.3 K/mm3 (4.4-11.0)
--- NOTE | 2022-04-15 09:36 | CM.ED ---
Social Work Responding to stroke alert. Patient spouse, Lucina Cintron present. This social psychologist introduced self and social psychologist role. Lucina Cintron reports that patient has had multiple strokes in the past and concerned about what is going on. Lucina Cintron presenting with appropriate and engaged affect. Lucina Cintron reports that patient typically walks with a rollaider at home and that Lucina Cintron is Health Care Power of Manager Of Exhibitions And Collections, this social psychologist noting that documents are on file for patient. Social Work to continue to follow as needed. PLAN: OXANA HELTON, [employer]RE[employer]
[2022-04-15 09:38] LABS: International Normalized Ratio 1.2; Prothrombin Time (Protime)PT. 14.6 SECONDS (11.7-14.9)
[2022-04-15 09:39] LABS: Partial Thromboplast Time 32.9 Seconds (24.1-36.2)
[2022-04-15 09:47] LABS: Anion Gap 5 (5-15); BUN 26 mg/dL (7-18); BUN/Creat Ratio 22.6 RATIO (10-20); Calcium,Total 8.6 mg/dL (8.5-10.1); Chloride 102 mmol/L (98-107); Creatinine, Serum 1.15 mg/dL (0.70-1.30); EST Glomerular Filtration Rate 67 mL/min (>60); Est Glom Filt Rate - Afr Amer 80 mL/min (>60); Estimated Creatinine Clearance 60.83 ml/min; Glucose 228 mg/dL (74-106); Potassium 3.6 mmol/L (3.5-5.1); Sodium Level 140 mmol/L (136-145); Troponin-I HS 34 pg/mL (3.0-78.0)
--- NOTE | 2022-04-15 09:51 | RAD_ITS ---
STUDY: X-RAY CHEST REASON FOR EXAM: Male, 71 years old. Neuro deficit, acute, stroke suspected TECHNIQUE: Single AP portable view of the chest. COMPARISON: Comparison is made with prior examination dated 04/11/2022. FINDINGS: EKG electrodes are seen. Stable scarring in the left lung. There is no demonstrated pleural abnormality. Sternal cerclage wires and vascular clips are present from a prior sternotomy and coronary artery bypass graft procedure (CABG). A left-sided dual-chamber pacemaker is seen. Normal mediastinum and cata. Normal visualized pulmonary arteries. Normal visualized aortic arch and descending thoracic aorta. There are diffuse degenerative changes of the visualized thoracic spine. Once again, there has been multiple left open reduction internal fixation of the left ribs. There is no demonstrated abnormality of the visualized soft tissue structures of the upper abdomen. RAD/Chest 1 View IMPRESSION: Stable examination. No acute abnormality is seen. Electronically Signed: Mick García MD at 10:15 EST ,
[2022-04-15 10:30] LABS: Bedside Glucose 205 mg/dL (74-106)
--- NOTE | 2022-04-15 10:43 | ED.RN ---
[place] REFERRAL # [id number]
[2022-04-15] MEDS: Acetaminophen 500 MG Tablet 1000 MG PO (11:40)
--- NOTE | 2022-04-15 12:17 | PCM.HP.STD ---
HPI - General General Date of Admission: 04/15/22 Date of Service: 04/15/22 Chief Complaint: Change in speech HPI Narrative GIOVANNY LEONARDO, is a 71 M with a history of type II 80s mellitus, GERD, COPD, coronary artery disease status post CABG who presented to [facility] 04/15/2022 via EMS for change in his speech. He had been here 04/11 for chest pain and ACS was ruled out, chest discomfort was better after GI cocktail and at that time was having some difficulty speaking but reported he has spells where he is out of it and will have difficulty talking and left-sided changes and has been doing that for years and it lasts variable amounts of time. In ED he was noted to be using all extremities for staff when physician evaluated he had weakness on right upper and lower extremities and stroke call was called, he was not deemed a tPA candidate and hospitalist contacted for admission. Evaluated patient with at bedside and that this particular episode started this morning when he had difficulty speaking, reports left side will go numb during these spells and that he will be out however she denies loss of consciousness and just that he seems not himself. Additionally off-and-on complains of chest discomfort and has had multiple cardiac evaluations. Given Tylenol in the ED for his chest pain and initially had difficulty answering questions but was later able to ask for morphine for the chest discomfort. Possibly has had some headache and neck hurting but patient poor historian and had difficulty conveying. did not know any other symptoms had been complaining of. [facility] Medical History Abnormal EKG Anemia Atherosclerotic heart disease [place] coronary artery w/angina pectoris BiPAP (biphasic positive airway pressure) dependence CAD (coronary artery disease) Chest pain Chronic hyperglycemia Chronic respiratory failure Congestive heart failure (CHF) Conversion reaction COPD (chronic obstructive pulmonary disease) Diabetes DM type 2 (diabetes mellitus, type 2) Dysarthria Essential (primary) hypertension Former smoker Hemiparesis, left History of fractured rib History of TIAs Hyperlipidemia Myocardial infarct Obesity On home oxygen therapy EKATERINA (obstructive sleep apnea) Pacemaker Pacemaker battery depletion Pulmonary embolism Sick sinus syndrome Stroke/cerebrovascular accident Wears hearing aid in both ears Home Medications aspirin 81 mg tablet,delayed release 81 mg PO DAILY HEART HEALTH 06/11/18 [History Last Taken 04/14/22] atorvastatin 80 mg tablet 80 mg PO QHS cholesterol 06/11/18 [History Last Taken 04/14/22] cholecalciferol (vitamin D3) 25 mcg (1,000 unit) tablet (Vitamin D3) 3,000 units PO DAILY supplement 06/11/18 [History Last Taken 04/14/22] escitalopram oxalate 10 mg tablet 10 mg PO DAILY depression 06/11/18 [History Last Taken 04/14/22] finasteride 5 mg tablet 5 mg PO DAILY prostate 06/11/18 [History Last Taken 04/14/22] insulin regular hum U-500 conc 500 unit/mL(3 mL) subcut pen (Humulin R U-500 (Conc) Insulin Kwikpen) 110 unit SQ BID diabetes 06/11/18 [History Last Taken 12/12/21] nitroglycerin 0.4 mg sublingual tablet 0.4 mg sublingual Q5M PRN Chest Pain #30 TABLETS 07/22/18 [Rx Last Taken 01/17/20] pantoprazole 40 mg tablet,delayed release 40 mg PO BID GERD 05/18/20 [History Last Taken 04/14/22] acetaminophen 325 mg tablet (Tylenol) 1,300 mg PO DAILY PRN PRN Pain 06/22/20 [History Last Taken 12/11/21] carvedilol 25 mg tablet 25 mg PO BID blood pressure 06/22/20 [History Last Taken 04/14/22] potassium chloride 20 mEq tablet,extended release(part/cryst) (Klor-Con M) 20 meq PO DAILY supplement 06/22/20 [History Last Taken 04/14/22] ranolazine 500 mg tablet,extended release,12 hr 500 mg PO Q12H chest pain 06/22/20 [History Last Taken 04/14/22] tamsulosin 0.4 mg capsule 0.4 mg PO QHS PROSTATE 08/10/20 [History Last Taken 04/14/22] clopidogrel 75 mg tablet (Plavix) 75 mg PO DAILY blood thinner 01/07/21 [History Last Taken 04/14/22] semaglutide (weight loss) 0.5 mg/0.5 mL subcutaneous pen injector 0.5 mg subcut FR diabetes 02/24/21 [History Last Taken 2 Weeks Ago ~11/28/21] diclofenac sodium 1 % topical gel 1 ea topical BID pain 08/17/21 [History Last Taken 04/14/22] glucose 4 gram chewable tablet 16 g PO Q15M PRN Hypoglycemia 08/17/21 [History Last Taken Unknown] albuterol sulfate 2.5 mg/3 mL (0.083 %) solution for nebulization 2.5 mg inhalation Q6H PRN Shortness Of Breath Or Wheezing 12/12/21 [History Last Taken 12/12/21] fenofibrate nanocrystallized 48 mg tablet 48 mg PO DAILY cholesterol 12/12/21 [History Last Taken 04/14/22] ferrous sulfate 325 mg (65 mg iron) tablet 325 mg PO BID SUPPLEMENT 12/12/21 [History Last Taken 04/14/22] guaifenesin 100 mg/5 mL oral liquid 200 mg PO TID PRN Cough 12/12/21 [History Last Taken 1 Week Ago ~12/05/21] ketoconazole 2 % shampoo 1 applic topical DAILY 12/12/21 [History Last Taken 04/14/22] magnesium oxide 420 mg tablet 420 mg PO BID SUPPLEMENT 12/12/21 [History Last Taken 04/14/22] multivitamin with minerals 1 tab PO DAILY SUPPLEMENT 12/12/21 [History Last Taken 04/14/22] prednisone 20 mg tablet 20 mg PO DAILY #4 TABLETS 04/11/22 [Rx Last Taken 04/14/22] Allergy/AdvReac Type Severity Reaction Status Date / Time ezetimibe Allergy Unknown Verified 04/15/22 09:18 Fish Containing Products Allergy Unknown Verified 04/15/22 09:18 glyburide Allergy Unknown Verified 04/15/22 09:18 isosorbide Allergy PT UNSURE Verified 04/15/22 09:18 OF REACTION lisinopril Allergy Unknown Verified 04/15/22 09:18 metformin Allergy Nausea Verified 04/15/22 09:18 metoprolol Allergy Unknown Verified 04/15/22 09:18 simvastatin Allergy Unknown Verified 04/15/22 09:18 gabapentin AdvReac Other Verified 04/15/22 09:18 Family History Father No problems noted. Surgical History H/O coronary artery bypass surgery History of cholecystectomy History of coronary artery stent placement History of knee replacement procedure of left knee History of permanent cardiac pacemaker placement (01/14/21) Social History household members: spouse Smoking Status: Former smoker details: Unknown substance use type: does not use ROS ROS Narrative Unable to obtain full ROS secondary to difficulty communicating however indicated possible headache, chest pain, does have difficulty speaking and weakness on the left side upper and lower Vital Signs Vital Signs Vital Signs: 04/15/22 09:11 04/15/22 09:19 04/15/22 09:10 Temperature 96.9 F L 96.9 F L Temperature Source Temporal Temporal Pulse Rate 60 60 Respiratory Rate 15 18 Respiratory Effort Normal Non-Labored Respiratory Pattern Normal Blood Pressure 156/85 H 156/85 H Blood Pressure Mean 108 108 Pulse Ox 96 96 Oxygen Delivery Method Nasal Cannula Nasal Cannula Oxygen Flow Rate (L/min) 2 2 04/15/22 09:18 04/15/22 09:48 04/15/22 10:18 Temperature Temperature Source Pulse Rate 60 62 Respiratory Rate 18 16 Respiratory Effort Respiratory Pattern Blood Pressure 161/89 H 166/83 H Blood Pressure Mean 113 110 Pulse Ox 96 99 97 Oxygen Delivery Method Nasal Cannula Nasal Cannula Nasal Cannula Oxygen Flow Rate (L/min) 2 2 2 04/15/22 10:48 04/15/22 10:56 04/15/22 11:00 Temperature 97.8 F Temperature Source Temporal Pulse Rate 61 60 60 Respiratory Rate 18 16 18 Respiratory Effort Respiratory Pattern Blood Pressure 151/76 H 151/76 H 143/75 H Blood Pressure Mean 101 101 97 Pulse Ox 98 97 97 Oxygen Delivery Method Nasal Cannula Nasal Cannula Nasal Cannula Oxygen Flow Rate (L/min) 2 2 2 04/15/22 11:30 Temperature Temperature Source Pulse Rate 62 Respiratory Rate 18 Respiratory Effort Respiratory Pattern Blood Pressure 143/75 H Blood Pressure Mean 97 Pulse Ox 97 Oxygen Delivery Method Nasal Cannula Oxygen Flow Rate (L/min) 2 Weight Weight: 116.1 kg Body Mass Index (BMI) 36.7 Physical Exam Narrative General: Alert, difficulty with communication but does not appear overtly distressed HEENT: Atraumatic, normocephalic Eyes: Anicteric, normal conjunctiva, extraocular movements grossly intact, slightly dry mucous membranes Neck: Supple Respiratory: Somewhat diminished at the bases, normal respiratory effort Cardiovascular: Regular rate and rhythm, paced GI: Soft, nontender Extremities: No edema Musculoskeletal: Left upper and lower extremity 3 out of 5, right upper and lower 5 out of 5. Able to [id number] with right hand, left hand seem to be limited primarily due to his difficulty raising his arm, cranial nerves II through XII intact Neuro: No clonus in ankles, reflexes equal bilaterally Skin: No rashes appreciated Psych: Seems to attempt to be cooperative Results Lab / Micro Data Result Diagrams: 04/15/22 09:20 04/15/22 09:20 Labs: Laboratory Results - last 24 hr 04/15/22 09:20: WBC 7.3, RBC 4.10 L, Hgb 13.4, Hct 39.6 L, MCV 96.6 H, MCH 32.7 H, MCHC 33.8, RDW Std Deviation 45.2 H, RDW Coeff of Cinda 12.8, Plt Count 129 L, MPV 10.9, Immature Gran % (Auto) 0.500, Neut % (Auto) 66.4, Lymph % (Auto) 25.6, [place] % (Auto) 5.9, Eos % (Auto) 1.2, Baso % (Auto) 0.4, Absolute Neuts (auto) 4.9, Absolute Lymphs (auto) 1.87, Nucleated RBC % 0 04/15/22 09:20: PT 14.6, INR 1.2, APTT 32.9 04/15/22 09:20: Sodium 140, Potassium 3.6, Chloride 102, Carbon Dioxide 33.0 H, Anion Gap 5, BUN 26 H, Creatinine 1.15, Estim Creat Clear Calc 60.83, Est GFR (MDRD) Af Amer 80, Est GFR (MDRD) Non-Af 67, BUN/Creatinine Ratio 22.6 H, Glucose 228 H, Calcium 8.6, Troponin I High Sens 34 04/15/22 10:05: POC Glucose 205 H Rhythm Strip Rhythm Strip: paced Rate: 65 Ectopy: None Radiology Impression Brain CT 04/15/22 09:18 IMPRESSION: Chronic involutional changes of the brain. N.B. : The above Results were Read Back by Mick García MD to Dr Mo MD, and understanding confirmed on 04/15/2022 09:37:22 (ET). Electronically Signed: Mick García MD at 9:38 EST , ADDENDUM: 04/15/22 0945 IMPRESSION: Chronic involutional changes of the brain. N.B. : The above Results were Read Back by Mick García MD to Dr Mo MD, and understanding confirmed on 04/15/2022 09:37:22 (ET). Electronically Signed: Mick García MD at 9:38 EST , Head/Neck CTA 04/15/22 09:18 IMPRESSION: Mild degree of calcific plaques at the origin of the right and left internal carotid arteries causing less than 50% stenosis. N.B. : The above Results were Read Back by Mick García MD to Dr Mo MD, and understanding confirmed on 04/15/2022 09:52:57 (ET). Electronically Signed: Mick García MD at 9:54 EST , ADDENDUM: 04/15/22 1001 IMPRESSION: Mild degree of calcific plaques at the origin of the right and left internal carotid arteries causing less than 50% stenosis. N.B. : The above Results were Read Back by Mick García MD to Dr Mo MD, and understanding confirmed on 04/15/2022 09:52:57 (ET). Electronically Signed: Mick García MD at 9:54 EST , Chest X-Ray 04/15/22 09:51 IMPRESSION: Stable examination. No acute abnormality is seen. Electronically Signed: Mick García MD at 10:15 EST , Assessment & Plan Assessment/Plan (1) Dysarthria: PLAN: Plan #Neurological changes -Apparently has these intermittent spells where he does not act like himself and will have some left-side ?numbness and weakness and changes in his speech and they are at variable intervals and last variable amounts of time -Given left-sided weakness in ED with stroke deficits stroke call was initiated, CT head and CTA head and neck no acute changes, not a candidate for tPA and inpatient stroke work-up advised -Patient has history of CVA previously with some residual left-sided symptoms -Admit to telemetry, NIH every 4 hours -A1c, lipid panel, TSH, INR/PTT -Continue aspirin, Plavix, statin -MRI head ordered, patient does have a pacemaker but details were faxed down to MRI and it is compatible with cardiology clearance and a right present -Given problems with multiple neurological complaints and multiple admissions feel it is important to obtain the study -Had recent echo 01/20/2022 and history listed on an echo in 2020 reports previous negative bubble study -PT/OT/speech eval's Hold BP medications to allow for permissive hypertension for 24 hours unless SBP greater than 220 or DBP greater than 120 or until stroke is ruled out -Lovenox for DVT prophylaxis #COPD -Does not seem to be in exacerbation -We will initiate nebs and as needed #History of CAD status post CABG -Continue aspirin, statin, Plavix -Resume beta-theron once. For permissive hypertension is over #Chest pain -Frequent admissions and evaluations for chest pain -Echo 01/20/2022 with an EF of 50% -Had a stress test at that time -Troponin from 04/11 when he presented with chest pain were 29 and 22 respectively and on presentation today was 34 -EKG paced and no acute injury pattern noted -Chest x-ray stable with no acute abnormality #Type II diabetes mellitus -Glucose checks and sliding scale insulin -Reportedly on 110 units of Humulin RU 500 twice daily, given speech and poor p.o./npo pending eval at this time we will give reduced dose but high concern for hypoglycemia, can escalate as appropriate #EKATERINA per documentation -BiPAP nightly and as needed #Morbid obesity -BMI 47.5 -Complicates treatment, prognosis, outcomes -Recommend weight loss and lifestyle changes #DVT ppx: Lovenox subcu Belle Holman MD Time spent in the patient's overall evaluation,decision-making process, review of diagnostic data, adjustment of management, discussion with other providers, nursing nursing and ancillary staff involved in patient's care documentation, 60 minutes Charges/Coding Visit Charges Inpatient E&M: 30784 Init Hosp L2
[2022-04-15] MEDS: Insulin Lispro 100 UNIT/ML INSULN.PEN SC ×2 (17:01→22:10)
[2022-04-15 17:46] LABS: Bedside Glucose 324 mg/dL (74-106)
[2022-04-15] MEDS: Ipratropium/Albuterol Sulfate 3 ML AMPUL.NEB INHALATION (19:54)
[2022-04-15] MEDS: Magnesium Chloride 64 MG Delay Rel.Tablet 128 MG PO (22:10)
[2022-04-15] MEDS: Ranolazine 500 MG Tablet PO (22:10)
[2022-04-15] MEDS: Atorvastatin Calcium 80 MG Tablet PO (22:10)
[2022-04-15] MEDS: Tamsulosin HCl 0.4 MG Capsule PO (22:10)
[2022-04-15] MEDS: Pantoprazole Sodium 40 MG Tablet PO (22:10)
[2022-04-15 22:50] LABS: Bedside Glucose 327 mg/dL (74-106)
[2022-04-16] VITALS (12 sets, daily range): BP systolic 129–161; BP diastolic 65–85; PULSE 57–69; RESP 12–28; TEMP 36.1–37; O2SAT 95–98; BMI 47.5
[2022-04-16 05:47] LABS: Absolute Lymphocyte Count 1.48 X10^3/uL (0.83-4.51); Absolute Neutrophil Count 4.7 X10^3/uL (2.0-7.7); Basophil# 0.02 X10^3/uL; Basophil% 0.3 % (0-1); Eosinophil# 0.15 X10^3/uL; Eosinophils% 2.2 % (0-5); Hematocrit 42.7 % (40-54); Hemoglobin 14.2 g/dL (13.0-16.5); Lymphocyte # 1.48 X10^3/ul (0.83-4.51); Mean Corp Hgb Conc 33.3 g/dL (32-36); Mean Corpuscular Hgb 32.3 pg (27.0-32.0); Mean Corpuscular Volume 97.3 fL (80-94); Mean Platelet Vol. 10.9 fl (6.2-12.0); Monocyte# 0.42 X10^3/uL; Monocyte% 6.2 % (0-10); NRBC Flagged by Analyzer 0 % (0-5); Neutrophil # 4.65 X10^3/uL (2.7-7.7); Platelet Count 135 K/mm3 (150-450); RBC Distribution Width SD 45.8 fl (35.1-43.9); Red Blood Count 4.39 M/mm3 (4.6-6.2); White Blood Count 6.7 K/mm3 (4.4-11.0)
[2022-04-16 06:26] LABS: ALB/GLOB Ratio 1.1 RATIO (0.9-2.4); AST(SGOT) 42 U/L (15-37); Alanine Aminotransfer ALT/SGPT 44 U/L (16-61); Albumin, Serum 3.5 g/dL (3.2-5.0); Alkaline Phosphatase 76 U/L (45-117); Anion Gap 7 (5-15); BUN 22 mg/dL (7-18); BUN/Creat Ratio 22.9 RATIO (10-20); Calcium,Total 8.7 mg/dL (8.5-10.1); Chloride 101 mmol/L (98-107); Cholesterol 100 mg/dL (200); Creatinine, Serum 0.96 mg/dL (0.70-1.30); EST Glomerular Filtration Rate 82 mL/min (>60); Est Glom Filt Rate - Afr Amer 99 mL/min (>60); Estimated Creatinine Clearance 52.21 ml/min; Globulin 3.3 g/dL (2.2-4.2); Glucose 236 mg/dL (74-106); High Density Lipoprotein 38 mg/dL; Phosphorus 3.8 mg/dL (2.5-4.9); Potassium 3.6 mmol/L (3.5-5.1); Protein, Total 6.8 g/dL (6.4-8.2); Sodium Level 138 mmol/L (136-145); Thyroid Stim Hormone (TSH) 5.14 uIU/mL (0.358-3.74); Triglycerides 195 mg/dL; Very Low Density Lipoprotein 39 mg/dL (5-40)
[2022-04-16 07:15] LABS: Bedside Glucose 237 mg/dL (74-106)
[2022-04-16] MEDS: Finasteride 5 MG Tablet PO (09:07)
[2022-04-16] MEDS: Ranolazine 500 MG Tablet PO ×2 (09:07→21:31)
[2022-04-16] MEDS: Escitalopram Oxalate 10 MG Tablet PO (09:07)
[2022-04-16] MEDS: Magnesium Chloride 64 MG Delay Rel.Tablet 128 MG PO ×2 (09:07→21:32)
[2022-04-16] MEDS: Aspirin E.C. 81 MG Tablet PO (09:07)
[2022-04-16] MEDS: Clopidogrel Bisulfate 75 MG Tablet PO (09:07)
[2022-04-16] MEDS: Ferrous Sulfate 325 MG Tablet PO ×2 (09:07→16:31)
[2022-04-16] MEDS: Pantoprazole Sodium 40 MG Tablet PO ×2 (09:07→21:32)
[2022-04-16] MEDS: Insulin U-500 UNITS/ML PEN 55 UNITS SC ×2 (09:08→16:31)
[2022-04-16] MEDS: Insulin Lispro 100 UNIT/ML INSULN.PEN SC ×4 (09:08→20:50)
[2022-04-16] MEDS: Fenofibrate 48 MG Tablet PO ×2 (09:08→21:31)
--- NOTE | 2022-04-16 09:16 | PCM.PN.HOSP ---
Reason for Visit Reason for Visit: Diagnoses Hemiplegia, unspecified affecting left nondominant side (04/15/22) Aphagia (04/15/22) Dysarthria and anarthria (04/15/22) Syncope and collapse (04/15/22) Subjective Subjective More interactive today, is feeling somewhat better, EEG done and pending, awaiting MRI Objective Data Objective Data Vital Signs: Vital Signs Temp Pulse Resp BP Pulse Ox O2 Del Method O2 Flow Rate 98.0 F 62 16 142/65 H 95 Nasal Cannula 2 04/16/22 09:15 04/16/22 09:15 04/16/22 09:15 04/16/22 09:15 04/16/22 09:15 04/16/22 09:15 04/16/22 09:15 FiO2 30 04/16/22 03:33 Oxygen Flow Rate (L/min) 2 Oxygen Delivery Method Nasal Cannula Weight: 114 kg Body Mass Index (BMI) 47.5 Intake & Output: Intake and Output for Last 24 Hours 04/14/22 04/15/22 04/16/22 23:59 23:59 23:59 Intake Total 800 / 1020 220 / 220 Output Total 300 / 750 1200 / 1200 Balance 500 / 270 -980 / -980 Lab / Micro Data Result Diagrams: 04/16/22 04:57 04/16/22 04:57 Labs: Laboratory Results - last 24 hr 04/15/22 09:20: WBC 7.3, RBC 4.10 L, Hgb 13.4, Hct 39.6 L, MCV 96.6 H, MCH 32.7 H, MCHC 33.8, RDW Std Deviation 45.2 H, RDW Coeff of Cinda 12.8, Plt Count 129 L, MPV 10.9, Immature Gran % (Auto) 0.500, Neut % (Auto) 66.4, Lymph % (Auto) 25.6, [place] % (Auto) 5.9, Eos % (Auto) 1.2, Baso % (Auto) 0.4, Absolute Neuts (auto) 4.9, Absolute Lymphs (auto) 1.87, Nucleated RBC % 0 04/15/22 09:20: PT 14.6, INR 1.2, APTT 32.9 04/15/22 09:20: Sodium 140, Potassium 3.6, Chloride 102, Carbon Dioxide 33.0 H, Anion Gap 5, BUN 26 H, Creatinine 1.15, Estim Creat Clear Calc 60.83, Est GFR (MDRD) Af Amer 80, Est GFR (MDRD) Non-Af 67, BUN/Creatinine Ratio 22.6 H, Glucose 228 H, Calcium 8.6, Troponin I High Sens 34 04/15/22 10:05: POC Glucose 205 H 04/15/22 16:59: POC Glucose 324 H 04/15/22 22:04: POC Glucose 327 H 04/16/22 04:57: WBC 6.7, RBC 4.39 L, Hgb 14.2, Hct 42.7, MCV 97.3 H, MCH 32.3 H, MCHC 33.3, RDW Std Deviation 45.8 H, RDW Coeff of Cinda 13.0, Plt Count 135 L, MPV 10.9, Immature Gran % (Auto) 0.300, Neut % (Auto) 69.0, Lymph % (Auto) 22.0, [place] % (Auto) 6.2, Eos % (Auto) 2.2, Baso % (Auto) 0.3, Absolute Neuts (auto) 4.7, Absolute Lymphs (auto) 1.48, Nucleated RBC % 0 04/16/22 04:57: Sodium 138, Potassium 3.6, Chloride 101, Carbon Dioxide 30.0, Anion Gap 7, BUN 22 H, Creatinine 0.96, Estim Creat Clear Calc 52.21, Est GFR (MDRD) Af Amer 99, Est GFR (MDRD) Non-Af 82, BUN/Creatinine Ratio 22.9 H, Glucose 236 H, Calcium 8.7, Phosphorus 3.8, Magnesium 2.0, Total Bilirubin 0.70, AST 42 H, ALT 44, Alkaline Phosphatase 76, Total Protein 6.8, Albumin 3.5, Globulin 3.3, Albumin/Globulin Ratio 1.1, Triglycerides 195, Cholesterol 100, LDL Cholesterol 23, VLDL Cholesterol 39, HDL Cholesterol 38 L, TSH 5.14 H 04/16/22 06:18: POC Glucose 237 H Radiography Diagnostic Testing: Radiology Impression Brain CT 04/15/22 09:18 IMPRESSION: Chronic involutional changes of the brain. N.B. : The above Results were Read Back by Mick García MD to Dr Mo MD, and understanding confirmed on 04/15/2022 09:37:22 (ET). Electronically Signed: Mikc García MD at 9:38 EST , ADDENDUM: 04/15/22 0945 IMPRESSION: Chronic involutional changes of the brain. N.B. : The above Results were Read Back by Mick García MD to Dr Mo MD, and understanding confirmed on 04/15/2022 09:37:22 (ET). Electronically Signed: Mick García MD at 9:38 EST , Head/Neck CTA 04/15/22 09:18 IMPRESSION: Mild degree of calcific plaques at the origin of the right and left internal carotid arteries causing less than 50% stenosis. N.B. : The above Results were Read Back by Mick García MD to Dr Mo MD, and understanding confirmed on 04/15/2022 09:52:57 (ET). Electronically Signed: Mick García MD at 9:54 EST , ADDENDUM: 04/15/22 1001 IMPRESSION: Mild degree of calcific plaques at the origin of the right and left internal carotid arteries causing less than 50% stenosis. N.B. : The above Results were Read Back by Mick García MD to Dr Mo MD, and understanding confirmed on 04/15/2022 09:52:57 (ET). Electronically Signed: Mick García MD at 9:54 EST , Chest X-Ray 04/15/22 09:51 IMPRESSION: Stable examination. No acute abnormality is seen. Electronically Signed: Mick García MD at 10:15 EST , Rhythm Strip Rhythm Strip: paced Rate: 65 Ectopy: None Physical Exam Narrative General: Alert, no acute distress HEENT: Atraumatic, normocephalic Eyes: Anicteric, normal conjunctiva, extraocular movements grossly intact Neck: Supple Respiratory: Somewhat diminished at the bases, normal respiratory effort Cardiovascular: Regular rate and rhythm, paced GI: Soft, nontender Extremities: No edema Musculoskeletal: Slight decrease in strength on the left side Neuro: No other overt focal neurological deficits appreciated Skin: No rashes appreciated Psych: Somewhat more cooperative Assessment & Plan Assessment/Plan (1) Dysarthria: PLAN: Plan #Neurological changes -Apparently has these intermittent spells where he does not act like himself and will have some left-side ?numbness and weakness and changes in his speech and they are at variable intervals and last variable amounts of time -Given left-sided weakness in ED with stroke deficits stroke call was initiated, CT head and CTA head and neck no acute changes, not a candidate for tPA and inpatient stroke work-up advised -Patient has history of CVA previously with some residual left-sided symptoms -Admit to telemetry, [facility] every 4 hours -A1c, lipid panel, TSH, INR/PTT -Continue aspirin, Plavix, statin -MRI head ordered, patient does have a pacemaker but details were faxed down to MRI and it is compatible with cardiology clearance and a right present -Given problems with multiple neurological complaints and multiple admissions feel it is important to obtain the study -Had recent echo 01/20/2022 and history listed on an echo in 2020 reports previous negative bubble study -PT/OT/speech eval's Hold BP medications to allow for permissive hypertension for 24 hours unless SBP greater than 220 or DBP greater than 120 or until stroke is ruled out -Lovenox for DVT prophylaxis -04/16: Has been improving today from a symptom standpoint, ESR and CRP within normal limits, TSH mildly elevated but free T4 and free T3 within normal limits, EEG with some generalized slowing that is nonspecific, no seizure activity during study. HIV negative, hepatitis panel pending #COPD -Does not seem to be in exacerbation -We will initiate nebs and as needed #History of CAD status post CABG -Continue aspirin, statin, Plavix -Resume beta-theron once. For permissive hypertension is over #Chest pain -Frequent admissions and evaluations for chest pain -Echo 01/20/2022 with an EF of 50% -Had a stress test at that time -Troponin from 04/11 when he presented with chest pain were 29 and 22 respectively and on presentation today was 34 -EKG paced and no acute injury pattern noted -Chest x-ray stable with no acute abnormality #Type II diabetes mellitus -Glucose checks and sliding scale insulin -Reportedly on 110 units of Humulin RU 500 twice daily, given speech and poor p.o./npo pending eval at this time we will give reduced dose but high concern for hypoglycemia, can escalate as appropriate -04/16: Will increase basal insulin #EKATERINA per documentation -BiPAP nightly and as needed #Morbid obesity -BMI 47.5 -Complicates treatment, prognosis, outcomes -Recommend weight loss and lifestyle changes #DVT ppx: Lovenox subcu Belle Holman MD Time spent in the patient's overall evaluation,decision-making process, review of diagnostic data, adjustment of management, discussion with other providers, nursing nursing and ancillary staff involved in patient's care documentation, 30 minutes
[2022-04-16 10:17] LABS: CRP < 2.90 mg/L (0.0-3.0); Free T3 2.6 pg/mL (2.18-3.98); T4 Free Direct 0.89 ng/dL (0.76-1.46)
[2022-04-16 11:23] LABS: Erythrocyte Sedimentation Rate 4 mm/hr (0-20)
[2022-04-16 12:01] LABS: HIV - WCH Non-Reactive (Nonreactive)
--- NOTE | 2022-04-16 12:32 | CHAPLAIN ---
Type of Pastoral Visit _x__ Initial Visit ___ Follow-up Visit ___ On-call Visit ___ General Patient Visit ___ Spiritual Assessment ___ Family Conference ___ Bereavement ___ Rapid Response ___ Code Blue ___ Other (describe below) Pastoral Care Referral From _x__ Patient ___ Family ___ Nurse ___ Physician ___ Senior Credit Officer ___ Area Development Consultant ___ Other (describe below) Sacrament/Intervention _x__ Active listening ___ Anointing ___ Tenriism ___ Bereavement ___ Communion ___ Liliane exploration ___ ___ Life review ___ Prayer ___ Reconciliation ___ Sacrament of Sick ___ Supportive presence ___ Wedding ___ Other (describe below) Pastoral Comments patient is sitting up in chair and responds slowly to questions given; spouse is sitting in room; spouse does not engage in conversation but does answer questions when asked; both deny need for spiritual care or support
[2022-04-16 12:40] LABS: Bedside Glucose 306 mg/dL (74-106)
[2022-04-16] MEDS: Ipratropium/Albuterol Sulfate 3 ML AMPUL.NEB INHALATION ×2 (12:56→19:14)
--- NOTE | 2022-04-16 15:16 | CASEMGMT ---
Patient has a Healthcare Power of Automatic Corn Grinder Operator and a Healthcare Living Will on file at [facility]. Patient's Lucina is patient's Healthcare Power of Automatic Corn Grinder Operator. Hoda MURRAY
--- NOTE | 2022-04-16 15:52 | NURSING ---
Ok per Shanel Burrell speech therapy to change diet order to regular textures as patient was only placed on easy to chew since he did not have his dentures. Patient currently has dentures and will be supervised during meals.
--- NOTE | 2022-04-16 16:41 | CASEMGMT ---
KRISTI CM in to complete FERGUSON form with patient. KRISTI GERONIMO explained FERGUSON form to patient, patient voiced understanding. Patient signed FERGUSON form and filed in chart. Brett provided with copy or signed FERGUSON form. Patient had no further questions or concerns at this time.
[2022-04-16 17:06] LABS: Bedside Glucose 267 mg/dL (74-106)
[2022-04-16] MEDS: Tamsulosin HCl 0.4 MG Capsule PO (21:31)
[2022-04-16] MEDS: Atorvastatin Calcium 80 MG Tablet PO (21:31)
[2022-04-16] MEDS: Carvedilol 25 MG Tablet PO (21:32)
[2022-04-16 22:40] LABS: Bedside Glucose 345 mg/dL (74-106)
[2022-04-17] VITALS (9 sets, daily range): BP systolic 127–139; BP diastolic 55–76; PULSE 57–80; RESP 14–20; TEMP 36.5–36.7; O2SAT 97–99; BMI 47.0
--- NOTE | 2022-04-17 01:59 | NURSING ---
Pt refusing next [facility] assessment. I re-educated on the purpose and importance of this assessment, pt still refusing.
[2022-04-17 05:07] LABS: HEPATITIS B SURFACE AG Negative (Negative); Hep C Antibodies Non Reactive (Non Reactive); Hepatitis A IgM Antibody Negative (Negative); Hepatitis B Core AB IgM Negative (Negative)
--- NOTE | 2022-04-17 05:21 | NURSING ---
This RN was updated by slab inspector that pt had refused lab draw this morning. Berto BERRY
--- NOTE | 2022-04-17 06:12 | NURSING ---
Pt refusing lab draw and NIH and vitals this morning.
[2022-04-17] MEDS: Ipratropium/Albuterol Sulfate 3 ML AMPUL.NEB INHALATION (07:38)
[2022-04-17] MEDS: Fenofibrate 48 MG Tablet PO (08:52)
[2022-04-17] MEDS: Escitalopram Oxalate 10 MG Tablet PO (08:52)
[2022-04-17] MEDS: Magnesium Chloride 64 MG Delay Rel.Tablet 128 MG PO (08:52)
[2022-04-17] MEDS: Finasteride 5 MG Tablet PO (08:52)
[2022-04-17] MEDS: Clopidogrel Bisulfate 75 MG Tablet PO (08:52)
[2022-04-17] MEDS: Aspirin E.C. 81 MG Tablet PO (08:52)
[2022-04-17] MEDS: Ferrous Sulfate 325 MG Tablet PO (08:52)
[2022-04-17] MEDS: Carvedilol 25 MG Tablet PO (08:52)
[2022-04-17] MEDS: Ranolazine 500 MG Tablet PO (08:52)
[2022-04-17] MEDS: Pantoprazole Sodium 40 MG Tablet PO (08:52)
[2022-04-17] MEDS: Insulin Lispro 100 UNIT/ML INSULN.PEN SC ×2 (08:53→13:49)
[2022-04-17] MEDS: Insulin U-500 UNITS/ML PEN 65 UNITS SC (08:53)
--- NOTE | 2022-04-17 09:00 | NURSING ---
Patient still refusing NIH assessment
[2022-04-17 09:15] LABS: Bedside Glucose 208 mg/dL (74-106)
--- NOTE | 2022-04-17 12:00 | MRI_ITS ---
STUDY: MRI BRAIN WITHOUT CONTRAST REASON FOR EXAM: Male, 71 years old. r/o CVA TECHNIQUE: Standardized multiplanar fat and water weighted pulse sequences were obtained. COMPARISON: Head CT dated April 15, 2022 FINDINGS: Normal size of the ventricles and extra-axial spaces for the patient''s age. There are multiple white matter hyperintensities, distributed throughout the deep white matter tracts of the cerebral hemispheres, consistent with mild to moderate chronic white matter ischemic changes. There is no evidence for recent intracranial ischemia or other cause of cytotoxic edema on diffusion weighted imaging (DWI). Normal T2* images of the brain without demonstrated susceptibility artifact. There is no demonstrated hemosiderin stain. Normal bilateral basal ganglia. Normal thalami. There is no extra-axial fluid accumulation. Normal flow voids within the major intracranial circulation suggesting patency by spin echo criteria. Normal sella turcica, pituitary gland, infundibular stalk, optic chiasm and hypothalamus. Normal tectal plate and pineal gland. Normal midbrain, juan and medulla. Normal cerebellum. Normal basal cisterns. Normal bilateral temporal bones. Normal bilateral internal auditory canals. No demonstrated orbital abnormality, within the constraints of a routine brain study. Normal visualized paranasal sinuses. Normal calvarium and skull base. Normal visualized soft tissue structures. Normal visualized upper cervical spine. There is significant opacification of the bilateral mastoid air cells. MRI/Brain without Contrast IMPRESSION: 1. Chronic ischemic changes of the brain, as described above. 2. No demonstrated acute infarct or intracranial hemorrhage 3. Bilateral mastoiditis Electronically Signed: Robb Temple MD at 13:54 EST Reading Location ID and State: [facility] / [place] , Service support ,
[2022-04-17 14:16] LABS: Bedside Glucose 309 mg/dL (74-106)
--- NOTE | 2022-04-17 15:08 | CASEMGMT ---
RN CM in to discuss discharge needs with patient as patient is planned for discharge today. at bedside. Patient and decline needs at discharge. Patient and instructed that should they reconsider to follow-up with PCP at [place] for assistance. Patient and voiced understanding, no further questions or concerns at this time.
--- NOTE | 2022-04-17 15:37 | DCINST_ITS ---
Discharge Instructions Diet Discharge Diet: - (DASH diet) Activity Discharge Activity: - (Return to normal activity as tolerated) Follow Up Care Test Results: Test results from this visit will be discussed in further detail at your follow- up appointment, if applicable. Discharge Plan Admission Admit Date/Time: 04/15/22 12:41 Primary Reason for Your Visit: Slurred speech Attending Provider: Belle Holman Primary Care Provider: [facility] Instructions Patient Instructions: ED Fall Prevention Additional Instructions / Restrictions: DISCHARGE INSTRUCTIONS PLEASE READ *Please take this with you to your next doctors appointment* -You would benefit from establishing with a neurologist given your waxing and waning symptoms. Please call Dr. Storey's office upon discharge to establish care. -Continue your home medications -On your MRI there was some possible inflammation behind your ears however you have no symptoms or signs so antibiotics are not indicated at this time however would recommend you follow-up closely with your primary care physician for further monitoring -Please call your primary care provider's office upon discharge to schedule a hospital follow up within 1 week. -For any concerning signs or symptoms please call 911 or proceed to the nearest emergency department Discharge Orders/Prescriptions Prescriptions: Continued clopidogrel [Plavix] 75 mg tablet 75 mg PO DAILY atorvastatin 80 MG tablet 80 mg PO QHS aspirin 81 MG tablet 81 mg PO DAILY finasteride 5 MG tablet 5 mg PO DAILY escitalopram oxalate 10 MG tablet 10 mg PO DAILY cholecalciferol (vitamin D3) [Vitamin D3] 1,000 UNIT tablet 3,000 units PO DAILY Humulin R U-500 (Conc) Kwikpen 500 UNIT/ML insulin pen 110 unit SQ BID nitroglycerin 0.4 MG tablet, sublingual 0.4 mg sublingual Q5M PRN (Reason: Chest Pain) Qty: 30 0RF pantoprazole 40 MG tablet 40 mg PO BID carvedilol 25 MG tablet 25 mg PO BID potassium chloride [Klor-Con M20] 20 mEq Tablet,Er Particles/Crystals 20 meq PO DAILY ranolazine 500 mg Tablet Extended Release 12 Hr 500 mg PO Q12H tamsulosin 0.4 MG capsule 0.4 mg PO QHS semaglutide (weight loss) 0.5 mg/0.5 mL Pen Injector 0.5 mg SUBCUT FR glucose 4 gram Tablet,Chewable 16 g PO Q15M PRN (Reason: Hypoglycemia) magnesium oxide 420 mg Tablet 420 mg PO BID ketoconazole 2 % Shampoo 1 applic TOPICAL DAILY albuterol sulfate 2.5 mg /3 mL (0.083 %) Solution For Nebulization 2.5 mg INHALATION Q6H PRN (Reason: Shortness Of Breath Or Wheezing) guaifenesin 100 mg/5 mL Liquid 200 mg PO TID PRN (Reason: Cough) multivitamin with minerals Tablet 1 tab PO DAILY fenofibrate nanocrystallized 48 mg Tablet 48 mg PO DAILY ferrous sulfate 325 mg (65 mg iron) tablet 325 mg PO BID Changed acetaminophen [Tylenol] 325 MG tablet 650 mg PO Q8H PRN PRN (Reason: Pain) Qty: 30 0RF Discontinued prednisone 20 mg tablet 20 mg PO DAILY Qty: 4 0RF Referrals / Follow Up: Raf Storey MD [Non-Staff -Ordering Privileges] - See Referral Note (You would benefit from establishing with a neurologist given your waxing and waning symptoms. Please call upon discharge to establish care.) [facility] [Primary Care Provider] - Within 1 Week Disposition Disposition (needs filled in before D/C Order can be placed): Home, Self Care
--- NOTE | 2022-04-17 16:02 | PCM.DC.SUM ---
Providers Date of Admission: 04/15/22 Date of Discharge: 04/17/22 Primary Care Physician: [facility] Reason For Visit: NEUROLOGICAL CHANGES Diagnosis Discharge Diagnosis (1) Dysarthria: Status: Acute Code(s): R47.1 - Dysarthria and anarthria Plan #Neurological changes?resolved #COPD #Type II diabetes mellitus #EKATERINA per documentation #Morbid obesity Medications at Discharge Home Medications aspirin 81 mg tablet,delayed release 81 mg PO DAILY HEART HEALTH 06/11/18 atorvastatin 80 mg tablet 80 mg PO QHS cholesterol 06/11/18 cholecalciferol (vitamin D3) 25 mcg (1,000 unit) tablet (Vitamin D3) 3,000 units PO DAILY supplement 06/11/18 escitalopram oxalate 10 mg tablet 10 mg PO DAILY depression 06/11/18 finasteride 5 mg tablet 5 mg PO DAILY prostate 06/11/18 insulin regular hum U-500 conc 500 unit/mL(3 mL) subcut pen (Humulin R U-500 (Conc) Insulin Kwikpen) 110 unit SQ BID diabetes 06/11/18 nitroglycerin 0.4 mg sublingual tablet 0.4 mg sublingual Q5M PRN Chest Pain #30 TABLETS 07/22/18 pantoprazole 40 mg tablet,delayed release 40 mg PO BID GERD 05/18/20 carvedilol 25 mg tablet 25 mg PO BID blood pressure 06/22/20 potassium chloride 20 mEq tablet,extended release(part/cryst) (Klor-Con M) 20 meq PO DAILY supplement 06/22/20 ranolazine 500 mg tablet,extended release,12 hr 500 mg PO Q12H chest pain 06/22/20 tamsulosin 0.4 mg capsule 0.4 mg PO QHS PROSTATE 08/10/20 clopidogrel 75 mg tablet (Plavix) 75 mg PO DAILY blood thinner 01/07/21 semaglutide (weight loss) 0.5 mg/0.5 mL subcutaneous pen injector 0.5 mg subcut FR diabetes 02/24/21 glucose 4 gram chewable tablet 16 g PO Q15M PRN Hypoglycemia 08/17/21 albuterol sulfate 2.5 mg/3 mL (0.083 %) solution for nebulization 2.5 mg inhalation Q6H PRN Shortness Of Breath Or Wheezing 12/12/21 fenofibrate nanocrystallized 48 mg tablet 48 mg PO DAILY cholesterol 12/12/21 ferrous sulfate 325 mg (65 mg iron) tablet 325 mg PO BID SUPPLEMENT 12/12/21 guaifenesin 100 mg/5 mL oral liquid 200 mg PO TID PRN Cough 12/12/21 ketoconazole 2 % shampoo 1 applic topical DAILY 12/12/21 magnesium oxide 420 mg tablet 420 mg PO BID SUPPLEMENT 12/12/21 multivitamin with minerals 1 tab PO DAILY SUPPLEMENT 12/12/21 acetaminophen 325 mg tablet (Tylenol) 650 mg PO Q8H PRN PRN Pain #30 tabs 04/17/22 Hospital Course Procedures - (MRI, EEG) Summary of Care Provided Hospital Course: 71-year-old male with a history of type 2 diabetes mellitus, COPD, coronary artery disease status post CABG presented to [facility] 04/15/2022 via EMS for changes in his speech. He had been here 04/11 for chest pain and ACS was ruled out, chest discomfort was better after GI cocktail and at that time was having some difficulty speaking but reported he has spells where he is out of it and will have difficulty talking and left-sided changes and has been doing that for years and it lasts variable amounts of time.? In ED he was noted to be using all extremities for staff when physician evaluated he had weakness on right upper and lower extremities and stroke call was called, he was not deemed a tPA candidate and hospitalist contacted for admission.? Evaluated patient with at bedside and that this particular episode started the morning of admission when he had difficulty speaking, reports left side will go numb during these spells and that he will be out however she denies loss of consciousness and just that he seems not himself.? CT head without acute changes and CTA head and neck with no significant stenosis or occlusion. Initially there is concern that he could not have an MRI due to his pacemaker but after sending the information to MRI it was deemed that he could as long as cardiology approved and a pacemaker manufacturers representative was present. His symptoms completely resolved during that time and he refused lab draw and [facility]. EEG had been performed which showed some generalized slowing that is nonspecific, no seizure activity during study. MRI was then performed after coordination on 04/17 and demonstrated chronic ischemic changes of the brain with no acute infarct or hemorrhage. Also noted significant opacification of the bilateral mastoid air cells. Patient has no mastoid tenderness, no lymphadenopathy, no throat changes, no ear pain reported, no erythema or pus seen in or behind the tympanic membranes when viewed with otoscope. Given negative MRI as well as CT and does not appear he had a stroke, unclear cause of his symptoms. Will advised to follow-up with outpatient neurology. Had no further complaints on day of discharge. Discharge instructions as followed: -You would benefit from establishing with a neurologist given your waxing and waning symptoms. Please call Dr. Storey's office upon discharge to establish care. -Continue your home medications -On your MRI there was some possible inflammation behind your ears however you have no symptoms or signs so antibiotics are not indicated at this time however would recommend you follow-up closely with your primary care physician for further monitoring -Please call your primary care provider's office upon discharge to schedule a hospital follow up within 1 week. -For any concerning signs or symptoms please call 911 or proceed to the nearest emergency department Physical Exam Narrative General: Alert, no acute distress HEENT: Atraumatic, normocephalic Eyes: Anicteric, normal conjunctiva, extraocular movements grossly intact Neck: Supple Respiratory: Somewhat diminished at the bases, normal respiratory effort Cardiovascular: Regular rate and rhythm, paced GI: Soft, nontender Extremities: No edema Musculoskeletal: Moving all extremities Neuro: No other overt focal neurological deficits appreciated Skin: No rashes appreciated Psych: Somewhat more cooperative Weight / BMI Weight Weight: 112.9 kg Body Mass Index (BMI) 47.0 ABG / Lab / Microbiology Data Result Diagrams: 04/16/22 04:57 04/16/22 04:57 Laboratory: Laboratory Results - last 24 hr 04/16/22 16:29: POC Glucose 267 H 04/16/22 20:38: POC Glucose 345 H 04/17/22 08:49: POC Glucose 208 H 04/17/22 13:48: POC Glucose 309 H Radiography Diagnostic Testing: Radiology Impression Brain MRI 04/17/22 12:00 IMPRESSION: 1. Chronic ischemic changes of the brain, as described above. 2. No demonstrated acute infarct or intracranial hemorrhage 3. Bilateral mastoiditis Electronically Signed: Robb Temple MD at 13:54 EST Reading Location ID and State: [facility] / [place] , Service support , D/C Instructions Discharge Diet: - (DASH diet) Meaningful Use Info Meaningful Use Diagnoses (Choose all that apply): None applicable Discharge Plan Admission Admit Date/Time: 04/15/22 12:41 Primary Reason for Your Visit: Slurred speech Attending Provider: Belle Holman Primary Care Provider: [facility] Instructions Patient Instructions: ED Fall Prevention Additional Instructions / Restrictions: DISCHARGE INSTRUCTIONS PLEASE READ *Please take this with you to your next doctors appointment* -You would benefit from establishing with a neurologist given your waxing and waning symptoms. Please call Dr. Storey's office upon discharge to establish care. -Continue your home medications -On your MRI there was some possible inflammation behind your ears however you have no symptoms or signs so antibiotics are not indicated at this time however would recommend you follow-up closely with your primary care physician for further monitoring -Please call your primary care provider's office upon discharge to schedule a hospital follow up within 1 week. -For any concerning signs or symptoms please call 911 or proceed to the nearest emergency department Discharge Orders/Prescriptions Prescriptions: Continued clopidogrel [Plavix] 75 mg tablet 75 mg PO DAILY atorvastatin 80 MG tablet 80 mg PO QHS aspirin 81 MG tablet 81 mg PO DAILY finasteride 5 MG tablet 5 mg PO DAILY escitalopram oxalate 10 MG tablet 10 mg PO DAILY cholecalciferol (vitamin D3) [Vitamin D3] 1,000 UNIT tablet 3,000 units PO DAILY Humulin R U-500 (Conc) Kwikpen 500 UNIT/ML insulin pen 110 unit SQ BID nitroglycerin 0.4 MG tablet, sublingual 0.4 mg sublingual Q5M PRN (Reason: Chest Pain) Qty: 30 0RF pantoprazole 40 MG tablet 40 mg PO BID carvedilol 25 MG tablet 25 mg PO BID potassium chloride [Klor-Con M20] 20 mEq Tablet,Er Particles/Crystals 20 meq PO DAILY ranolazine 500 mg Tablet Extended Release 12 Hr 500 mg PO Q12H tamsulosin 0.4 MG capsule 0.4 mg PO QHS semaglutide (weight loss) 0.5 mg/0.5 mL Pen Injector 0.5 mg SUBCUT FR glucose 4 gram Tablet,Chewable 16 g PO Q15M PRN (Reason: Hypoglycemia) magnesium oxide 420 mg Tablet 420 mg PO BID ketoconazole 2 % Shampoo 1 applic TOPICAL DAILY albuterol sulfate 2.5 mg /3 mL (0.083 %) Solution For Nebulization 2.5 mg INHALATION Q6H PRN (Reason: Shortness Of Breath Or Wheezing) guaifenesin 100 mg/5 mL Liquid 200 mg PO TID PRN (Reason: Cough) multivitamin with minerals Tablet 1 tab PO DAILY fenofibrate nanocrystallized 48 mg Tablet 48 mg PO DAILY ferrous sulfate 325 mg (65 mg iron) tablet 325 mg PO BID Changed acetaminophen [Tylenol] 325 MG tablet 650 mg PO Q8H PRN PRN (Reason: Pain) Qty: 30 0RF Discontinued prednisone 20 mg tablet 20 mg PO DAILY Qty: 4 0RF Referrals / Follow Up: Raf Storey MD [Non-Staff -Ordering Privileges] - See Referral Note (You would benefit from establishing with a neurologist given your waxing and waning symptoms. Please call upon discharge to establish care.) [facility] [Primary Care Provider] - Within 1 Week Disposition Disposition (needs filled in before D/C Order can be placed): Home, Self Care Charges/Coding Visit Charges Inpatient E&M: 49530 Disch Hosp >30min
--- NOTE | 2022-04-17 16:12 | PHA.DC.MR ---
Pharmacy Service has performed discharge medication reconciliation for this patient. No new medications at time of discharge review. Medications reviewed are from previously reported home medications. Home Medications aspirin 81 mg tablet,delayed release 81 mg PO DAILY HEART HEALTH 06/11/18 atorvastatin 80 mg tablet 80 mg PO QHS cholesterol 06/11/18 cholecalciferol (vitamin D3) 25 mcg (1,000 unit) tablet (Vitamin D3) 3,000 units PO DAILY supplement 06/11/18 escitalopram oxalate 10 mg tablet 10 mg PO DAILY depression 06/11/18 finasteride 5 mg tablet 5 mg PO DAILY prostate 06/11/18 insulin regular hum U-500 conc 500 unit/mL(3 mL) subcut pen (Humulin R U-500 (Conc) Insulin Kwikpen) 110 unit SQ BID diabetes 06/11/18 nitroglycerin 0.4 mg sublingual tablet 0.4 mg sublingual Q5M PRN Chest Pain #30 TABLETS 07/22/18 pantoprazole 40 mg tablet,delayed release 40 mg PO BID GERD 05/18/20 carvedilol 25 mg tablet 25 mg PO BID blood pressure 06/22/20 potassium chloride 20 mEq tablet,extended release(part/cryst) (Klor-Con M) 20 meq PO DAILY supplement 06/22/20 ranolazine 500 mg tablet,extended release,12 hr 500 mg PO Q12H chest pain 06/22/20 tamsulosin 0.4 mg capsule 0.4 mg PO QHS PROSTATE 08/10/20 clopidogrel 75 mg tablet (Plavix) 75 mg PO DAILY blood thinner 01/07/21 semaglutide (weight loss) 0.5 mg/0.5 mL subcutaneous pen injector 0.5 mg subcut FR diabetes 02/24/21 glucose 4 gram chewable tablet 16 g PO Q15M PRN Hypoglycemia 08/17/21 albuterol sulfate 2.5 mg/3 mL (0.083 %) solution for nebulization 2.5 mg inhalation Q6H PRN Shortness Of Breath Or Wheezing 12/12/21 fenofibrate nanocrystallized 48 mg tablet 48 mg PO DAILY cholesterol 12/12/21 ferrous sulfate 325 mg (65 mg iron) tablet 325 mg PO BID SUPPLEMENT 12/12/21 guaifenesin 100 mg/5 mL oral liquid 200 mg PO TID PRN Cough 12/12/21 ketoconazole 2 % shampoo 1 applic topical DAILY dry scalp 12/12/21 magnesium oxide 420 mg tablet 420 mg PO BID SUPPLEMENT 12/12/21 multivitamin with minerals 1 tab PO DAILY SUPPLEMENT 12/12/21 acetaminophen 325 mg tablet (Tylenol) 650 mg PO Q8H PRN PRN Pain #30 tabs 04/17/22 The patient's discharge medication list was reviewed for discrepancies and discrepancies were resolved.
== END 2022-04-17 16:01 | disposition home or self-care (01) ==
LOC: ED 10:08 → PCU 11:21
PROVIDERS: Admitting Provider Internal Medicine; Emergency Provider Emergency Medicine; Visit Provider Internal Medicine
DX: R47.1 Dysarthria and anarthria (principal); G81.94 Hemiplegia, unspecified affecting left nondominant side; J44.9 Chronic obstructive pulmonary disease, unspecified; I11.0 Hypertensive heart disease with heart failure; I50.9 Heart failure, unspecified; Z68.42 Body mass index [BMI] 45.0-49.9, adult; E66.01 Morbid (severe) obesity due to excess calories; Z79.4 Long term (current) use of insulin; E11.9 Type 2 diabetes mellitus without complications; R07.9 Chest pain, unspecified; I65.23 Occlusion and stenosis of bilateral carotid arteries; M54.2 Cervicalgia; Z79.82 Long term (current) use of aspirin; Z87.891 Personal history of nicotine dependence; R55 Syncope and collapse; E78.5 Hyperlipidemia, unspecified; R47.01 Aphasia; I25.10 Atherosclerotic heart disease of native coronary artery without angina pectoris; G47.33 Obstructive sleep apnea (adult) (pediatric); R29.714 NIHSS score 14; Z79.899 Other long term (current) drug therapy; Z79.02 Long term (current) use of antithrombotics/antiplatelets; R29.810 Facial weakness; K21.9 Gastro-esophageal reflux disease without esophagitis; R94.31 Abnormal electrocardiogram [ECG] [EKG]
CPT/HCPCS: 99285; 36415; 70450; 70496; 70498; 70551; 71045; 80048; 80053; 80061; 80074; 82962; 83735; 84100; 84439; 84443; 84481; 84484; 85025; 85610; 85652; 85730; 86140; 86703; 92507; 92523; 92526; 92610; 93005; 94002; 94003; 94640; 94762; 95819; 96360; 97162; 97166; 99221; 99252; Q9967; G0378; G0463

== ENCOUNTER 2022-06-04 00:15 | Emergency (ER) | payer OTHER, SELFPAY ==
[2022-06-04 00:18] VITALS: BP 172/87; PULSE 76; RESP 20; TEMP 36.6; O2SAT 93; BMI 36.3
--- NOTE | 2022-06-04 00:57 | RAD_ITS ---
EXAM: XR CHEST, 1 VIEW CLINICAL INDICATION: chest pain TECHNIQUE: Frontal view of the chest. This report was created using [employer] report generation technology. COMPARISON: April 15, 2022. FINDINGS: LUNGS AND PLEURAL SPACES: Suspicion of slight opacity at the right lateral lung base compared to prior exam. Both hemidiaphragms remain well seen. No pneumothorax. No effusion. HEART: Stable borderline-mild cardiomegaly. MEDIASTINUM: Central airways and mediastinal contour are unremarkable. BONES/JOINTS: Thyroid stabilization plate bridging old rib fractures are again noted on the left. Median sternotomy wires are again noted. SOFT TISSUES: Unremarkable. TUBES, LINES AND DEVICES: Stable position of left subclavian central venous catheter tip in the transvenous pacemaker leads superior vena cava. RAD/Chest 1 View (Portable) IMPRESSION: Question of slight right basilar infiltrate or asymmetric edema. Otherwise stable chest. Electronically Signed: Annamaria Brooks MD at 1:37 EDT ,
--- NOTE | 2022-06-04 00:57 | EKG12_ITS ---
Test Reason : CP Blood Pressure : / mmHG Vent. Rate : 076 BPM Atrial Rate : 076 BPM P-R Int : 168 ms QRS Dur : 202 ms QT Int : 482 ms P-R-T Axes : 073 -67 099 degrees QTc Int : 542 ms Atrial-sensed ventricular-paced rhythm Abnormal ECG Confirmed by PADILLA GUALLPA, CALI ([id number]), editor managing newspaper NADINE FERRER ([id number]) on 06/09/2022 10:48:00 AM Referred By: SANDRA Confirmed By:CALI CAUSEY MD
[2022-06-04 01:05] LABS: Absolute Lymphocyte Count 1.13 X10^3/uL (0.83-4.51); Absolute Neutrophil Count 3.9 X10^3/uL (2.0-7.7); Basophil# 0.02 X10^3/uL; Basophil% 0.4 % (0-1); Eosinophil# 0.16 X10^3/uL; Eosinophils% 2.8 % (0-5); Hematocrit 40.5 % (40-54); Hemoglobin 13.6 g/dL (13.0-16.5); Lymphocyte # 1.13 X10^3/ul (0.83-4.51); Lymphocyte % 19.9 % (19-41); Mean Corp Hgb Conc 33.6 g/dL (32-36); Mean Corpuscular Hgb 32.8 pg (27.0-32.0); Mean Corpuscular Volume 97.6 fL (80-94); Mean Platelet Vol. 10.6 fl (6.2-12.0); Monocyte# 0.46 X10^3/uL; Monocyte% 8.1 % (0-10); NRBC Flagged by Analyzer 0 % (0-5); Neutrophil % 68.4 % (47-70); Platelet Count 148 K/mm3 (150-450); RBC Distribution Width CV 14.3 % (11.6-14.6); RBC Distribution Width SD 50.2 fl (35.1-43.9); Red Blood Count 4.15 M/mm3 (4.6-6.2); White Blood Count 5.7 K/mm3 (4.4-11.0)
[2022-06-04 01:16] VITALS: BP 165/91; PULSE 75; RESP 20; O2SAT 94
[2022-06-04 01:30] LABS: Anion Gap 4 (5-15); BUN 24 mg/dL (7-18); BUN/Creat Ratio 24.4 RATIO (10-20); Calcium,Total 8.6 mg/dL (8.5-10.1); Chloride 105 mmol/L (98-107); Creatinine, Serum 0.98 mg/dL (0.70-1.30); EST Glomerular Filtration Rate 80 mL/min (>60); Est Glom Filt Rate - Afr Amer 96 mL/min (>60); Estimated Creatinine Clearance 71.39 ml/min; Glucose 155 mg/dL (74-106); Potassium 3.5 mmol/L (3.5-5.1); Sodium Level 140 mmol/L (136-145); Troponin-I HS (w/2H Reflex) 29 pg/mL (3.0-78.0)
[2022-06-04] MEDS: Morphine 2 MG/ML Syringe IV (01:49)
[2022-06-04] MEDS: Ondansetron 4 MG/2 ML Vial IV (01:49)
--- NOTE | 2022-06-04 02:42 | CT_ITS ---
EXAM: CT ANGIOGRAPHY CHEST, ABDOMEN AND PELVIS WITH INTRAVENOUS CONTRAST CLINICAL INDICATION: chest pain chest pain TECHNIQUE: Helically acquired angiography images were obtained of the chest, abdomen and pelvis with intravenous contrast. This CT exam was performed using one or more of the following dose reduction techniques: automated exposure control, adjustment of the mA and/or kV according to patient size, and/or use of iterative reconstruction technique. This report was created using [employer] report generation technology. MIP reconstructed images were created and reviewed. CONTRAST: IV 100mL [id number] RADIATION DOSE: CTDIvol = 20.55 mGy, DLP = 2106.00 mGy-cm COMPARISON: Chest x-ray 06/04/2022. CTA chest 03/24/2021. FINDINGS: VASCULATURE: AORTA: There is atherosclerotic calcification of the abdominal aorta. There is no demonstrated aneurysm or dissection, or stenosis. There is mild atherosclerotic calcification of the thoracic aorta. PULMONARY ARTERIES: Unremarkable. Normal in caliber. No obvious central pulmonary embolism although this study was not performed with the pulmonary embolism protocol. GREAT VESSELS OF AORTIC ARCH: Unremarkable. Normal in caliber. No dissection. CELIAC TRUNK AND MESENTERIC ARTERIES: No acute findings. No occlusion or significant stenosis. No dissection. RENAL ARTERIES: There is mild stenosis of the proximal renal arteries with less than 50% luminal narrowing. No dissection. ILIAC ARTERIES: No acute findings. No occlusion or significant stenosis. No dissection. CHEST: LUNGS AND PLEURAL SPACES: Small left pleural effusion which is decreased in size. There is overlying atelectasis in the posterior left lower lobe which is probably chronic. There is no demonstrated acute pulmonary infiltrate. No mass. No pneumothorax. HEART: There are coronary artery calcifications. Heart size is normal. No pericardial effusion. MEDIASTINUM: There were enlarged mediastinal lymph nodes with short axis diameters ranging up to 1.7 cm in the subcarinal region and 1.2 cm in the paratracheal region. These are not significant different from previous study. There are subcentimeter lymph nodes in the left anterior mediastinum which have decreased in size from previous study. Esophagus is unremarkable. No hiatal hernia. THYROID: Unremarkable. No thyroid lesions. ABDOMEN: LIVER: The liver is enlarged. GALLBLADDER AND BILE DUCTS: Gallbladder is surgically absent. No intra- or extrahepatic biliary ductal dilation. PANCREAS: Unremarkable. No focal cystic or solid mass. SPLEEN: The spleen is mildly enlarged. ADRENALS: Unremarkable. No nodules. KIDNEYS AND URETERS: Unremarkable. Normal renal size and position. No hydronephrosis. STOMACH AND BOWEL: Colonic diverticula. 3 cm diverticulum of the duodenal sweep. No stomach or bowel distention. No focal inflammatory change. PELVIS: APPENDIX: A normal-appearing appendix is seen on series 3, axial images 79-92. BLADDER: Unremarkable. REPRODUCTIVE: Unremarkable as visualized. No mass. CHEST, ABDOMEN and PELVIS: INTRAPERITONEAL SPACE: Unremarkable. No ascites or other fluid collection. No free air. BONES/JOINTS: There are sternotomy wires. There are multilevel degenerative changes in the visualized spine. There are bridging osteophytes at multiple contiguous levels of the thoracic and lumbar spine, consistent with DISH (diffuse idiopathic skeletal hyperostosis). There are multiple old healed rib fractures bilaterally. Metallic fixation plates and screws overlying the left fourth, fifth, sixth, seventh, and eighth ribs. Hardware is intact, without evidence for loosening. There is an old healed right clavicular fracture. No suspicious lytic or blastic abnormality. SOFT TISSUES: There is an umbilical hernia, which contains fat. LYMPH NODES: Unremarkable. No enlarged lymph nodes. TUBES, LINES AND DEVICES: There is an atrioventricular pacemaker. CT/CTA Chst, Abd, Pel W and/or WO IMPRESSION: 1. No evidence for pulmonary embolism, aortic aneurysm, or aortic dissection. 2. No evidence for abdominal aortic aneurysm or dissection. No evidence for significant stenosis of abdominal or pelvic arteries. 3. Very small left pleural effusion, decreased from previous exam. Left posterior basilar atelectasis is probably chronic. No visualized acute pulmonary infiltrate. 4. Mildly enlarged mediastinal lymph nodes probably represent reactive nodes. These are the same, or decrease in size compared to previous study. 5. Pacemaker. 6. Previous cholecystectomy. 7. Colonic diverticulosis. Duodenal diverticulum. No evidence for acute diverticulitis. 8. Hepatomegaly. 9. Mild splenomegaly. 10. Umbilical hernia contains fat, but no bowel. Electronically Signed: Andrea Rocha MD at 4:06 EDT ,
[2022-06-04 03:00] VITALS: BP 147/115; PULSE 75; RESP 19; O2SAT 97
[2022-06-04 03:03] LABS: Reflex Troponin-HS? (from REC) Y
[2022-06-04 03:04] LABS: Troponin-I HS 40 pg/mL (3.0-78.0)
[2022-06-04] MEDS: fentaNYL 100 MCG/2 ML Ampul 25 MCG IV (03:35)
--- NOTE | 2022-06-04 04:26 | EX.ED.DYSGE1 ---
HPI History of Present Illness Chief Complaint: Chest Pain Narrative Narrative: Patient is a 71-year-old male with past medical history of cardiac pacemaker as well as hypertension and recurrent chest pain. He presents complaining of generalized anterior chest discomfort without any type of trauma or excessive activity. He states he has been no nausea vomiting diaphoresis shortness of breath associated with this. He states he is taken [id number] medications without symptom improvement and therefore comes in for evaluation [facility] Medical History Abnormal EKG Anemia Atherosclerotic heart disease redding coronary artery w/angina pectoris BiPAP (biphasic positive airway pressure) dependence CAD (coronary artery disease) Chest pain Chronic hyperglycemia Chronic respiratory failure Congestive heart failure (CHF) Conversion reaction COPD (chronic obstructive pulmonary disease) Diabetes DM type 2 (diabetes mellitus, type 2) Dysarthria Essential (primary) hypertension Former smoker Hemiparesis, left History of fractured rib History of TIAs Hyperlipidemia Myocardial infarct Obesity On home oxygen therapy EKATERINA (obstructive sleep apnea) Pacemaker Pacemaker battery depletion Pulmonary embolism Sick sinus syndrome Stroke/cerebrovascular accident Wears hearing aid in both ears Home Medications aspirin 81 mg tablet,delayed release 81 mg PO DAILY HEART HEALTH 06/11/18 [History Last Taken 04/14/22] atorvastatin 80 mg tablet 80 mg PO QHS cholesterol 06/11/18 [History Last Taken 04/14/22] cholecalciferol (vitamin D3) 25 mcg (1,000 unit) tablet (Vitamin D3) 3,000 units PO DAILY supplement 06/11/18 [History Last Taken 04/14/22] escitalopram oxalate 10 mg tablet 10 mg PO DAILY depression 06/11/18 [History Last Taken 04/14/22] finasteride 5 mg tablet 5 mg PO DAILY prostate 06/11/18 [History Last Taken 04/14/22] insulin regular hum U-500 conc 500 unit/mL(3 mL) subcut pen (Humulin R U-500 (Conc) Insulin Kwikpen) 110 unit SQ BID diabetes 06/11/18 [History Last Taken 12/12/21] nitroglycerin 0.4 mg sublingual tablet 0.4 mg sublingual Q5M PRN Chest Pain #30 TABLETS 07/22/18 [Rx Last Taken 01/17/20] pantoprazole 40 mg tablet,delayed release 40 mg PO BID GERD 05/18/20 [History Last Taken 04/14/22] carvedilol 25 mg tablet 25 mg PO BID blood pressure 06/22/20 [History Last Taken 04/14/22] ranolazine 500 mg tablet,extended release,12 hr 500 mg PO Q12H chest pain 06/22/20 [History Last Taken 04/14/22] tamsulosin 0.4 mg capsule 0.4 mg PO QHS PROSTATE 08/10/20 [History Last Taken 04/14/22] clopidogrel 75 mg tablet (Plavix) 75 mg PO DAILY blood thinner 01/07/21 [History Last Taken 04/14/22] glucose 4 gram chewable tablet 16 g PO Q15M PRN Hypoglycemia 08/17/21 [History Last Taken Unknown] albuterol sulfate 2.5 mg/3 mL (0.083 %) solution for nebulization 2.5 mg inhalation Q6H PRN Shortness Of Breath Or Wheezing 12/12/21 [History Last Taken 12/12/21] fenofibrate nanocrystallized 48 mg tablet 48 mg PO DAILY cholesterol 12/12/21 [History Last Taken 04/14/22] ferrous sulfate 325 mg (65 mg iron) tablet 325 mg PO BID SUPPLEMENT 12/12/21 [History Last Taken 04/14/22] guaifenesin 100 mg/5 mL oral liquid 200 mg PO TID PRN Cough 12/12/21 [History Last Taken 1 Week Ago ~12/05/21] ketoconazole 2 % shampoo 1 applic topical DAILY dry scalp 12/12/21 [History Last Taken 04/14/22] magnesium oxide 420 mg tablet 420 mg PO BID SUPPLEMENT 12/12/21 [History Last Taken 04/14/22] multivitamin with minerals 1 tab PO DAILY SUPPLEMENT 12/12/21 [History Last Taken 04/14/22] acetaminophen 325 mg tablet (Tylenol) 650 mg PO Q8H PRN PRN Pain #30 tabs 04/17/22 [Rx Last Taken 12/11/21] spironolactone 25 mg tablet 25 mg PO DAILY 06/05/22 [History Last Taken Unknown] Allergy/AdvReac Type Severity Reaction Status Date / Time ezetimibe Allergy Unknown Verified 06/05/22 20:53 Fish Containing Products Allergy Unknown Verified 06/05/22 20:53 glyburide Allergy Unknown Verified 06/05/22 20:53 isosorbide Allergy PT UNSURE Verified 06/05/22 20:53 OF REACTION lisinopril Allergy Unknown Verified 06/05/22 20:53 metformin Allergy Nausea Verified 06/05/22 20:53 metoprolol Allergy Unknown Verified 06/05/22 20:53 simvastatin Allergy Unknown Verified 06/05/22 20:53 gabapentin AdvReac Other Verified 06/05/22 20:53 Family History Father No problems noted. Family History no significant family his Surgical History H/O coronary artery bypass surgery History of cholecystectomy History of coronary artery stent placement History of knee replacement procedure of left knee History of permanent cardiac pacemaker placement (01/14/21) Social History household members: spouse Smoking Status: Former smoker details: Unknown substance use type: does not use ROS ROS ED Constitutional Constitutional ED: Denies chills or fever(s) ENT ENT ED: Denies sore throat Cardiovascular Cardiovascular: Reports chest pain; Denies racing heartbeat Respiratory/Chest Respiratory/Chest: Denies cough or dyspnea Gastrointestinal Gastrointestinal: Denies abdominal pain, diarrhea, nausea or vomiting Genitourinary Genitourinary ED: Denies dysuria Musculoskeletal Musculoskeletal: Denies myalgias Integumentary Denies rash Neurologic Neurologic: Denies headache(s) Hematologic/Lymphatic Hematologic/Lymphatic: Denies easy bleeding or easy bruising EXAM Physical Exam Const Vital Signs: 06/04/22 00:18 06/04/22 00:21 06/04/22 00:57 Temperature 97.8 F Temperature Source Oral Pulse Rate 76 Respiratory Rate 20 H Respiratory Effort Short of Breath Blood Pressure 172/87 H Blood Pressure Mean 115 Pulse Ox 93 Oxygen Delivery Method Room Air Nasal Cannula Oxygen Flow Rate (L/min) 3 06/04/22 01:16 06/04/22 03:00 Temperature Temperature Source Pulse Rate 75 75 Respiratory Rate 20 H 19 H Respiratory Effort Blood Pressure 165/91 H 147/115 H Blood Pressure Mean 115 125 Pulse Ox 94 97 Oxygen Delivery Method Room Air Nasal Cannula Oxygen Flow Rate (L/min) 3 Positive well nourished and well developed General Appearance ED: well developed and pallor HEENT Reports moist mucous membranes Eyes PERRL and EOMs intact bilaterally General Eye ED: Yes pale conjunctiva Neck supple and no JVD Chest Wall Chest Narrative: There is reproducible pain with palpation of the anterior chest wall without voluntary guarding bony deformity or crepitance Resp normal respiratory effort and clear to auscultation bilaterally Cardio regular rate and regular rhythm GI normal to inspection, nondistended, normoactive bowel sounds, non-tender, non-distended and no masses GI Narrative: No voluntary guarding or rigidity no pulsatile mass or fluid wave Auscultation: normoactive bowel sounds Palpation: soft Extremity normal to inspection Extremity Narrative: Negative Homans' sign bilaterally Neuro oriented x3 and CN's II-XII intact bilaterally Neuro Narrative: Patient has chronic findings from previous CVA but no new/acute findings Sensorium / Orientation: alert Psych mental status grossly normal Skin no rashes or lesions noted General Skin Exam: pallor MDM MDM MDM Narrative Medical decision making narrative: Patient presented to the ER hypertensive but has a past medical history of this and otherwise has stable vitals. Based on his risk factors for cardiovascular disease a basic cardiac work-up was obtained. Blood work revealed initial troponin of 29 with a delta of 40 and an 11 point changes not significantly significant. With concern this could be chest pain from lung pathology such as infection/infiltrate pneumothorax or pleural effusion a chest x-ray was obtained. This revealed no acute finding. Despite the troponins not statistically elevating and having no lung pathology to explain the pain patient's pain persisted so a CTA was obtained. This revealed no acute finding either. On reevaluation after patient was given a small dose of fentanyl he had reported resolution of his pain. Therefore patient has had PE and dissection ruled out by CT scan his troponins are not specifically elevated and pain has resolved and therefore he is otherwise safe for discharge. History & Record Review Discussion w/independent historian: Patient and Family Lab Data Attestation: I reviewed the patient's lab results. Labs: Laboratory Results - last 24 hr 06/04/22 06/04/22 06/04/22 00:20 00:20 02:42 WBC 5.7 RBC 4.15 L Hgb 13.6 Hct 40.5 MCV 97.6 H MCH 32.8 H MCHC 33.6 RDW Std Deviation 50.2 H RDW Coeff of Cinda 14.3 Plt Count 148 L MPV 10.6 Immature Gran % (Auto) 0.400 Neut % (Auto) 68.4 Lymph % (Auto) 19.9 [place] % (Auto) 8.1 Eos % (Auto) 2.8 Baso % (Auto) 0.4 Absolute Neuts (auto) 3.9 Absolute Lymphs (auto) 1.13 Nucleated RBC % 0 Sodium 140 Potassium 3.5 Chloride 105 Carbon Dioxide 31.0 Anion Gap 4 L BUN 24 H Creatinine 0.98 Estim Creat Clear Calc 71.39 Est GFR (MDRD) Af Amer 96 Est GFR (MDRD) Non-Af 80 BUN/Creatinine Ratio 24.4 H Glucose 155 H Calcium 8.6 Troponin I High Sens 29 40 Radiography Diagnostic Testing: Clinical Impression(s) from Imaging Studies Chest X-Ray 06/04/22 00:57 IMPRESSION: Question of slight right basilar infiltrate or asymmetric edema. Otherwise stable chest. Electronically Signed: Annamaria Brooks MD at 1:37 EDT , Chest/Abdomen/Pelvis CTA 06/04/22 02:42 IMPRESSION: 1. No evidence for pulmonary embolism, aortic aneurysm, or aortic dissection. 2. No evidence for abdominal aortic aneurysm or dissection. No evidence for significant stenosis of abdominal or pelvic arteries. 3. Very small left pleural effusion, decreased from previous exam. Left posterior basilar atelectasis is probably chronic. No visualized acute pulmonary infiltrate. 4. Mildly enlarged mediastinal lymph nodes probably represent reactive nodes. These are the same, or decrease in size compared to previous study. 5. Pacemaker. 6. Previous cholecystectomy. 7. Colonic diverticulosis. Duodenal diverticulum. No evidence for acute diverticulitis. 8. Hepatomegaly. 9. Mild splenomegaly. 10. Umbilical hernia contains fat, but no bowel. Electronically Signed: Andrea Rocha MD at 4:06 EDT , Chest x-ray as interpreted by the emergency medicine physician reveals atelectasis in the right lower lobe without acute infiltrate pneumothorax or pleural effusion Discharge Plan Triage Chief Complaint: Chest Pain ED Provider: Richy Clifford Dx/Rx/DC Orders Clinical Impression: Nonspecific chest pain, Hypertension, History of permanent cardiac pacemaker placement Instructions: ED Chest Pain, Uncertain Cause Prescriptions: No Action clopidogrel [Plavix] 75 mg tablet 75 mg PO DAILY atorvastatin 80 MG tablet 80 mg PO QHS aspirin 81 MG tablet 81 mg PO DAILY finasteride 5 MG tablet 5 mg PO DAILY escitalopram oxalate 10 MG tablet 10 mg PO DAILY cholecalciferol (vitamin D3) [Vitamin D3] 1,000 UNIT tablet 3,000 units PO DAILY Humulin R U-500 (Conc) Kwikpen 500 UNIT/ML insulin pen 110 unit SQ BID nitroglycerin 0.4 MG tablet, sublingual 0.4 mg sublingual Q5M PRN (Reason: Chest Pain) Qty: 30 0RF pantoprazole 40 MG tablet 40 mg PO BID carvedilol 25 MG tablet 25 mg PO BID ranolazine 500 mg Tablet Extended Release 12 Hr 500 mg PO Q12H tamsulosin 0.4 MG capsule 0.4 mg PO QHS glucose 4 gram Tablet,Chewable 16 g PO Q15M PRN (Reason: Hypoglycemia) magnesium oxide 420 mg Tablet 420 mg PO BID ketoconazole 2 % Shampoo 1 applic TOPICAL DAILY albuterol sulfate 2.5 mg /3 mL (0.083 %) Solution For Nebulization 2.5 mg INHALATION Q6H PRN (Reason: Shortness Of Breath Or Wheezing) guaifenesin 100 mg/5 mL Liquid 200 mg PO TID PRN (Reason: Cough) multivitamin with minerals Tablet 1 tab PO DAILY fenofibrate nanocrystallized 48 mg Tablet 48 mg PO DAILY ferrous sulfate 325 mg (65 mg iron) tablet 325 mg PO BID acetaminophen [Tylenol] 325 MG tablet 650 mg PO Q8H PRN PRN (Reason: Pain) Qty: 30 0RF spironolactone 25 mg Tablet 25 mg PO DAILY [facility] [Primary Care Provider] - Activity Restrictions/Additional Instructions: Your work-up today does not show any signs of heart damage and the CT scan is rule out a blood clot or dissection. Continue your medications as directed by your family doctor and return to the hospital should you have any further concerns Disposition Disposition: Home, Self Care Discharge Date/Time: 06/04/22 05:44
[2022-06-04 05:34] VITALS: BP 132/68; PULSE 64; RESP 18; O2SAT 94
== END 2022-06-04 05:44 | disposition home or self-care (01) ==
PROVIDERS: Emergency Provider Emergency Medicine; Visit Provider Emergency Medicine
DX: R07.9 Chest pain, unspecified (principal); J44.9 Chronic obstructive pulmonary disease, unspecified; E11.9 Type 2 diabetes mellitus without complications; I25.10 Atherosclerotic heart disease of native coronary artery without angina pectoris; Z87.891 Personal history of nicotine dependence; E78.5 Hyperlipidemia, unspecified; I10 Essential (primary) hypertension; G47.33 Obstructive sleep apnea (adult) (pediatric); Z95.0 Presence of cardiac pacemaker; I25.2 Old myocardial infarction; Z86.73 Personal history of transient ischemic attack (TIA), and cerebral infarction without residual deficits
CPT/HCPCS: 71045; 71275; 74174; 80048; 84484; 85025; 93005; 96374; 96375; 99283; Q9967; A4216; J2405

== ENCOUNTER 2022-06-05 20:49 | Observation (INO) | payer OTHER, MEDICARE, SELFPAY ==
[2022-06-05 20:49] VITALS: BP 132/90; PULSE 56; RESP 18; TEMP 36.7; O2SAT 100
--- NOTE | 2022-06-05 21:10 | EKG12_ITS ---
Test Reason : AM EKG Blood Pressure : / mmHG Vent. Rate : 060 BPM Atrial Rate : 059 BPM P-R Int : 000 ms QRS Dur : 214 ms QT Int : 564 ms P-R-T Axes : 000 -70 133 degrees QTc Int : 564 ms AV sequential pacing Left axis deviation Left bundle branch block Abnormal ECG When compared with ECG of 05-JUN-2022 20:58, MANUAL COMPARISON REQUIRED, DATA IS UNCONFIRMED Confirmed by PADILLA GUALLPA, CALI ([id number]), medical transcription editor NADINE FERRER ([id number]) on 06/10/2022 10:46:28 AM Referred By: HARVEY Confirmed By:CALI CAUSEY MD
--- NOTE | 2022-06-05 21:11 | EX.ED.DYSGE1 ---
HPI History of Present Illness Chief Complaint: Nausea/Vomiting/Diarrhea Detail of Chief Complaint: Pain all over, vomiting and diarrhea Informant: patient and spouse/S.O. Narrative Narrative: Patient presents to the ER complaining of pain all over. He specifically complains of pain in his neck and into his chest. He also has nausea, vomiting, and diarrhea for the past 2 days. Patient was seen here approximate 36 hours ago and had a full work-up including a CTA of the chest, abdomen, and pelvis that was unremarkable. Patient specifically asking for another dose of morphine that he got in the ER. [facility] Medical History Abnormal EKG Anemia Atherosclerotic heart disease [place] coronary artery w/angina pectoris BiPAP (biphasic positive airway pressure) dependence CAD (coronary artery disease) Chest pain Chronic hyperglycemia Chronic respiratory failure Congestive heart failure (CHF) Conversion reaction COPD (chronic obstructive pulmonary disease) Diabetes DM type 2 (diabetes mellitus, type 2) Dysarthria Essential (primary) hypertension Former smoker Hemiparesis, left History of fractured rib History of TIAs Hyperlipidemia Myocardial infarct Obesity On home oxygen therapy EKATERINA (obstructive sleep apnea) Pacemaker Pacemaker battery depletion Pulmonary embolism Sick sinus syndrome Stroke/cerebrovascular accident Wears hearing aid in both ears Home Medications aspirin 81 mg tablet,delayed release 81 mg PO DAILY HEART HEALTH 06/11/18 [History Last Taken 04/14/22] atorvastatin 80 mg tablet 80 mg PO QHS cholesterol 06/11/18 [History Last Taken 04/14/22] cholecalciferol (vitamin D3) 25 mcg (1,000 unit) tablet (Vitamin D3) 3,000 units PO DAILY supplement 06/11/18 [History Last Taken 04/14/22] escitalopram oxalate 10 mg tablet 10 mg PO DAILY depression 06/11/18 [History Last Taken 04/14/22] finasteride 5 mg tablet 5 mg PO DAILY prostate 06/11/18 [History Last Taken 04/14/22] insulin regular hum U-500 conc 500 unit/mL(3 mL) subcut pen (Humulin R U-500 (Conc) Insulin Kwikpen) 110 unit SQ BID diabetes 06/11/18 [History Last Taken 12/12/21] nitroglycerin 0.4 mg sublingual tablet 0.4 mg sublingual Q5M PRN Chest Pain #30 TABLETS 07/22/18 [Rx Last Taken 01/17/20] pantoprazole 40 mg tablet,delayed release 40 mg PO BID GERD 05/18/20 [History Last Taken 04/14/22] carvedilol 25 mg tablet 25 mg PO BID blood pressure 06/22/20 [History Last Taken 04/14/22] ranolazine 500 mg tablet,extended release,12 hr 500 mg PO Q12H chest pain 06/22/20 [History Last Taken 04/14/22] tamsulosin 0.4 mg capsule 0.4 mg PO QHS PROSTATE 08/10/20 [History Last Taken 04/14/22] clopidogrel 75 mg tablet (Plavix) 75 mg PO DAILY blood thinner 01/07/21 [History Last Taken 04/14/22] glucose 4 gram chewable tablet 16 g PO Q15M PRN Hypoglycemia 08/17/21 [History Last Taken Unknown] albuterol sulfate 2.5 mg/3 mL (0.083 %) solution for nebulization 2.5 mg inhalation Q6H PRN Shortness Of Breath Or Wheezing 12/12/21 [History Last Taken 12/12/21] fenofibrate nanocrystallized 48 mg tablet 48 mg PO DAILY cholesterol 12/12/21 [History Last Taken 04/14/22] ferrous sulfate 325 mg (65 mg iron) tablet 325 mg PO BID SUPPLEMENT 12/12/21 [History Last Taken 04/14/22] guaifenesin 100 mg/5 mL oral liquid 200 mg PO TID PRN Cough 12/12/21 [History Last Taken 1 Week Ago ~12/05/21] ketoconazole 2 % shampoo 1 applic topical DAILY dry scalp 12/12/21 [History Last Taken 04/14/22] magnesium oxide 420 mg tablet 420 mg PO BID SUPPLEMENT 12/12/21 [History Last Taken 04/14/22] multivitamin with minerals 1 tab PO DAILY SUPPLEMENT 12/12/21 [History Last Taken 04/14/22] acetaminophen 325 mg tablet (Tylenol) 650 mg PO Q8H PRN PRN Pain #30 tabs 04/17/22 [Rx Last Taken 12/11/21] spironolactone 25 mg tablet 25 mg PO DAILY 06/05/22 [History Last Taken Unknown] Allergy/AdvReac Type Severity Reaction Status Date / Time ezetimibe Allergy Unknown Verified 06/05/22 20:53 Fish Containing Products Allergy Unknown Verified 06/05/22 20:53 glyburide Allergy Unknown Verified 06/05/22 20:53 isosorbide Allergy PT UNSURE Verified 06/05/22 20:53 OF REACTION lisinopril Allergy Unknown Verified 06/05/22 20:53 metformin Allergy Nausea Verified 06/05/22 20:53 metoprolol Allergy Unknown Verified 06/05/22 20:53 simvastatin Allergy Unknown Verified 06/05/22 20:53 gabapentin AdvReac Other Verified 06/05/22 20:53 Family History Father No problems noted. Surgical History H/O coronary artery bypass surgery History of cholecystectomy History of coronary artery stent placement History of knee replacement procedure of left knee History of permanent cardiac pacemaker placement (01/14/21) Social History household members: spouse Smoking Status: Former smoker details: Unknown substance use type: does not use ROS ROS ED Constitutional Constitutional ED: Denies chills or fever(s) Eyes Eyes: Denies change in vision or discharge from eye(s) ENT ENT ED: Denies discharge from eye(s), rhinorrhea or sore throat Cardiovascular Cardiovascular: Reports chest pain; Denies palpitations Respiratory/Chest Respiratory/Chest: Denies cough or dyspnea Gastrointestinal Gastrointestinal: Reports diarrhea, nausea and vomiting Genitourinary Genitourinary ED: Denies difficulty urinating or dysuria Musculoskeletal Musculoskeletal: Reports back pain and neck pain; Denies extremity pain Integumentary Denies Abrasions or rash Neurologic Neurologic: Denies headache(s) Allergic/Immunologic Allergic/Immunologic ED: Denies lip swelling or urticaria EXAM Physical Exam Const Vital Signs: 06/05/22 20:49 Temperature 98.0 F Temperature Source Temporal Pulse Rate 56 L Respiratory Rate 18 Blood Pressure 132/90 H Blood Pressure Mean 104 Pulse Ox 100 Oxygen Delivery Method Nasal Cannula Oxygen Flow Rate (L/min) 3 Positive well nourished and well developed General Appearance ED: well developed HEENT Reports normocephalic and head/scalp atraumatic Eyes PERRL and EOMs intact bilaterally Neck supple Chest Wall inspection of chest normal and palpation of chest normal Resp normal respiratory effort and clear to auscultation bilaterally Cardio regular rate and regular rhythm GI normal to inspection, nondistended, normoactive bowel sounds Palpation: soft Back/Spine Back/Spine Narrative: Mild tenderness in the right greater than left cervical paraspinal muscles. No midline tenderness. Extremity normal to inspection Neuro oriented x3 Neuro Narrative: Chronic left-sided weakness secondary to prior CVA. Sensorium / Orientation: alert Psych mental status grossly normal Skin no rashes or lesions noted MDM MDM MDM Narrative Medical decision making narrative: Patient's lab test from early yesterday morning are reviewed. Renal function was unremarkable so he was given a 15 mg dose of Toradol. Patient was given Reglan and Benadryl for nausea. Labwork obtained to evaluate for leukocytosis, anemia, and electrolyte derangement. EKG obtained to evaluate for cardiac arrhythmia/ischemia. I did review his chest x-ray as well as his CTA of his chest, abdomen, and pelvis from yesterday and do not feel he needs repeat imaging today. History & Record Review Discussion w/independent historian: Patient and Significant other Additional record(s) reviewed:: Prior ED visit and Prior labs Lab Data Attestation: I reviewed the patient's lab results. Labs: Laboratory Results - last 24 hr 06/05/22 06/05/22 21:28 21:28 WBC 4.6 RBC 3.63 L Hgb 11.9 L Hct 35.7 L MCV 98.3 H MCH 32.8 H MCHC 33.3 RDW Std Deviation 50.5 H RDW Coeff of Cinda 14.0 Plt Count 128 L MPV 10.4 Immature Gran % (Auto) 0.400 Neut % (Auto) 65.7 Lymph % (Auto) 22.0 [place] % (Auto) 8.9 Eos % (Auto) 2.6 Baso % (Auto) 0.4 Absolute Neuts (auto) 3.0 Absolute Lymphs (auto) 1.02 Nucleated RBC % 0 Sodium 138 Potassium 3.6 Chloride 105 Carbon Dioxide 31.0 Anion Gap 2 L BUN 21 H Creatinine 1.41 H Est GFR (MDRD) Af Amer 64 Est GFR (MDRD) Non-Af 53 L BUN/Creatinine Ratio 14.9 Glucose 134 H Calcium 8.1 L Total Bilirubin 0.70 Direct Bilirubin 0.23 AST 27 ALT 39 Alkaline Phosphatase 95 Troponin I High Sens 26 Total Protein 6.9 Albumin 3.5 Globulin 3.4 Lipase 22 EKG Initial EKG: Attestation: I personally reviewed and interpreted this EKG as follows: Interpretation: - (Paced rhythm at 62 bpm. No acute ischemia. QTc is 550.) Treatment and Re-Evaluation :: EKG reveals chronic changes with no acute ischemia. CBC reveals normal white count at 4.6 with a 11.9 hemoglobin. His hemoglobin is down about a gram and a half from 36 hours ago. Chemistry studies reveal mild dehydration with a BUN of 21 and a creatinine 1.41. This is up from a creatinine of 0.98 yesterday. With the drop in hemoglobin with dehydration I did do a stool test. Stool guaiac test is negative. Given that this is the patient's second visit on 2 consecutive days, I will speak with hospitalist regarding admission for hydration and monitoring his hemoglobin. I believe he likely has a viral gastroenteritis causing his GI symptoms. Patient has chronic chest pain and has undergone multiple work-ups. His troponin is negative today and I do not feel this needs further evaluation at this time. Discharge Plan Dx/Rx/DC Orders Clinical Impression: Dehydration, Gastroenteritis, Anemia Disposition Disposition: Acute Care [facility]
[2022-06-05] MEDS: Metoclopramide 10 MG/2 ML Vial IV (21:24)
[2022-06-05] MEDS: DiphenhydrAMINE 50 MG/ML Syringe 12.5 MG IV (21:26)
[2022-06-05] MEDS: Ketorolac 15 MG/ML Vial IV (21:26)
[2022-06-05] MEDS: Lidocaine 5% Patch 1 PATCH TOPICAL (21:26)
[2022-06-05 21:37] LABS: Absolute Lymphocyte Count 1.02 X10^3/uL (0.83-4.51); Basophil# 0.02 X10^3/uL; Basophil% 0.4 % (0-1); Eosinophil# 0.12 X10^3/uL; Eosinophils% 2.6 % (0-5); Hematocrit 35.7 % (40-54); Hemoglobin 11.9 g/dL (13.0-16.5); Lymphocyte # 1.02 X10^3/ul (0.83-4.51); Mean Corp Hgb Conc 33.3 g/dL (32-36); Mean Corpuscular Hgb 32.8 pg (27.0-32.0); Mean Corpuscular Volume 98.3 fL (80-94); Mean Platelet Vol. 10.4 fl (6.2-12.0); Monocyte# 0.41 X10^3/uL; Monocyte% 8.9 % (0-10); NRBC Flagged by Analyzer 0 % (0-5); Neutrophil # 3.04 X10^3/uL (2.7-7.7); Neutrophil % 65.7 % (47-70); Platelet Count 128 K/mm3 (150-450); RBC Distribution Width SD 50.5 fl (35.1-43.9); Red Blood Count 3.63 M/mm3 (4.6-6.2); White Blood Count 4.6 K/mm3 (4.4-11.0)
[2022-06-05 22:20] LABS: AST(SGOT) 27 U/L (15-37); Alanine Aminotransfer ALT/SGPT 39 U/L (16-61); Albumin, Serum 3.5 g/dL (3.2-5.0); Alkaline Phosphatase 95 U/L (45-117); Anion Gap 2 (5-15); BUN 21 mg/dL (7-18); BUN/Creat Ratio 14.9 RATIO (10-20); Bilirubin, Direct 0.23 mg/dL (0.00-0.30); Calcium,Total 8.1 mg/dL (8.5-10.1); Chloride 105 mmol/L (98-107); Creatinine, Serum 1.41 mg/dL (0.70-1.30); EST Glomerular Filtration Rate 53 mL/min (>60); Est Glom Filt Rate - Afr Amer 64 mL/min (>60); Globulin 3.4 g/dL (2.2-4.2); Glucose 134 mg/dL (74-106); Lipase 22 U/L (13-75); Potassium 3.6 mmol/L (3.5-5.1); Protein, Total 6.9 g/dL (6.4-8.2); Sodium Level 138 mmol/L (136-145); Troponin-I HS 26 pg/mL (3.0-78.0)
[2022-06-05 22:49] VITALS: PULSE 61; RESP 18; O2SAT 98
[2022-06-05 22:52] VITALS: BMI 37.5
[2022-06-05] MEDS: 0.9% Normal Saline 1,000 ML 150 ML IV (22:52)
[2022-06-05 22:54] VITALS: BP 123/63; PULSE 60; RESP 19; TEMP 36.6; O2SAT 98
--- NOTE | 2022-06-05 23:24 | PCM.HP.STD ---
HPI - General General Date of Admission: 06/05/22 Date of Service: 06/05/22 Chief Complaint: Myalgia, N/V/D. HPI Narrative The patient is a 71 y/o M w/ PMHx: Anxiety and Depression, Obesity, Chronic anemia, CAD s/p CABG and PCI, HTN, HLD, Chronic COPD w/ Chronic Hypoxic Respiratory Failure, Hx PE, Diabetes mellitus type II, Hx sick sinus syndrome s/p pacemaker placement, EKATERINA on BIPAP q HS, Reported Hx Diastolic CHF, Hx CVA w/ chronic aphasia and L sided hemiplegia, Chronic Thrombocytopenia, Chronic anemia, initially presented on 06/04/22 with complaint of chest discomfort, pleuritic with CXR per ED with RLL atelectasis and lower suspicion PNA, CTA C/A/P w/ no evidence of PE, aortic aneurysm or dissection, no evidence of any stenosis of abdominal or pelvic arteries, very small left pleural effusion decreased from previous with a left posterior basilar atelectasis likely chronic and no visualized acute pulmonary infiltrate, mildly enlarged mediastinal lymph nodes likely reactive although decreased in size from prior study, pacemaker present, previous cholecystectomy evident, colonic diverticulosis, hepatomegaly, mild splenomegaly, umbilical hernia with fat but no bowel, CBC with WC 5.7, hemoglobin 13.6, platelet 148 without marked shift, BMP unremarkable, troponin 29 with repeat delta 40 similar to previous enzyme trending stable on his chronic supplementation with discharge to home at that time who now represents to the [facility] ED on 06/05/22 with complaint of ongoing generalized myalgias and pain as well as similar persistent pleuritic chest discomfort with nausea, emesis and diarrhea which she reports has been ongoing for 2 days with increased fatigue and debility. Immediately upon ED evaluation patient asks for morphine that he had previously as this improved his symptoms. The patient's who is also present reports that she has had some mildly loose stools recently as well but no nausea or emesis. Work-up in the ED included T98, heart rate 56, BP 132/90, respiratory rate 18, 100% on 3 L nasal cannula, CBC with WBC 4.6, hemoglobin 11.9, platelet 128 without marked shift, CMP with BUN/creatinine 21/1.41, glucose 134, hepatic profile not marked appearing, troponin 26, lipase 22, occult stool blood negative. In the ED patient ministered Reglan 10 mg IV x1, lidocaine patch topically placed, Toradol 15 mg IV x1 as well as diphenhydramine 12.5 mg IV x1 and maintenance IV fluids. [facility] Medical History Abnormal EKG Anemia Atherosclerotic heart disease [place] coronary artery w/angina pectoris BiPAP (biphasic positive airway pressure) dependence CAD (coronary artery disease) Chest pain Chronic hyperglycemia Chronic respiratory failure Congestive heart failure (CHF) Conversion reaction COPD (chronic obstructive pulmonary disease) Diabetes DM type 2 (diabetes mellitus, type 2) Dysarthria Essential (primary) hypertension Former smoker Hemiparesis, left History of fractured rib History of TIAs Hyperlipidemia Myocardial infarct Obesity On home oxygen therapy EKATERINA (obstructive sleep apnea) Pacemaker Pacemaker battery depletion Pulmonary embolism Sick sinus syndrome Stroke/cerebrovascular accident Wears hearing aid in both ears Home Medications aspirin 81 mg tablet,delayed release 81 mg PO DAILY HEART HEALTH 06/11/18 [History Last Taken 04/14/22] atorvastatin 80 mg tablet 80 mg PO QHS cholesterol 06/11/18 [History Last Taken 04/14/22] cholecalciferol (vitamin D3) 25 mcg (1,000 unit) tablet (Vitamin D3) 3,000 units PO DAILY supplement 06/11/18 [History Last Taken 04/14/22] escitalopram oxalate 10 mg tablet 10 mg PO DAILY depression 06/11/18 [History Last Taken 04/14/22] finasteride 5 mg tablet 5 mg PO DAILY prostate 06/11/18 [History Last Taken 04/14/22] insulin regular hum U-500 conc 500 unit/mL(3 mL) subcut pen (Humulin R U-500 (Conc) Insulin Kwikpen) 110 unit SQ BID diabetes 06/11/18 [History Last Taken 12/12/21] nitroglycerin 0.4 mg sublingual tablet 0.4 mg sublingual Q5M PRN Chest Pain #30 TABLETS 07/22/18 [Rx Last Taken 01/17/20] pantoprazole 40 mg tablet,delayed release 40 mg PO BID GERD 05/18/20 [History Last Taken 04/14/22] carvedilol 25 mg tablet 25 mg PO BID blood pressure 06/22/20 [History Last Taken 04/14/22] ranolazine 500 mg tablet,extended release,12 hr 500 mg PO Q12H chest pain 06/22/20 [History Last Taken 04/14/22] tamsulosin 0.4 mg capsule 0.4 mg PO QHS PROSTATE 08/10/20 [History Last Taken 04/14/22] clopidogrel 75 mg tablet (Plavix) 75 mg PO DAILY blood thinner 01/07/21 [History Last Taken 04/14/22] glucose 4 gram chewable tablet 16 g PO Q15M PRN Hypoglycemia 08/17/21 [History Last Taken Unknown] albuterol sulfate 2.5 mg/3 mL (0.083 %) solution for nebulization 2.5 mg inhalation Q6H PRN Shortness Of Breath Or Wheezing 12/12/21 [History Last Taken 12/12/21] fenofibrate nanocrystallized 48 mg tablet 48 mg PO DAILY cholesterol 12/12/21 [History Last Taken 04/14/22] ferrous sulfate 325 mg (65 mg iron) tablet 325 mg PO BID SUPPLEMENT 12/12/21 [History Last Taken 04/14/22] guaifenesin 100 mg/5 mL oral liquid 200 mg PO TID PRN Cough 12/12/21 [History Last Taken 1 Week Ago ~12/05/21] ketoconazole 2 % shampoo 1 applic topical DAILY dry scalp 12/12/21 [History Last Taken 04/14/22] magnesium oxide 420 mg tablet 420 mg PO BID SUPPLEMENT 12/12/21 [History Last Taken 04/14/22] multivitamin with minerals 1 tab PO DAILY SUPPLEMENT 12/12/21 [History Last Taken 04/14/22] acetaminophen 325 mg tablet (Tylenol) 650 mg PO Q8H PRN PRN Pain #30 tabs 04/17/22 [Rx Last Taken 12/11/21] spironolactone 25 mg tablet 25 mg PO DAILY 06/05/22 [History Last Taken Unknown] Allergy/AdvReac Type Severity Reaction Status Date / Time ezetimibe Allergy Unknown Verified 06/05/22 20:53 Fish Containing Products Allergy Unknown Verified 06/05/22 20:53 glyburide Allergy Unknown Verified 06/05/22 20:53 isosorbide Allergy PT UNSURE Verified 06/05/22 20:53 OF REACTION lisinopril Allergy Unknown Verified 06/05/22 20:53 metformin Allergy Nausea Verified 06/05/22 20:53 metoprolol Allergy Unknown Verified 06/05/22 20:53 simvastatin Allergy Unknown Verified 06/05/22 20:53 gabapentin AdvReac Other Verified 06/05/22 20:53 Family History Father No problems noted. Family History no significant family his no significant family history (Patient denies any marked maternal or paternal family history including HD, DM, CA.) Surgical History H/O coronary artery bypass surgery History of cholecystectomy History of coronary artery stent placement History of knee replacement procedure of left knee History of permanent cardiac pacemaker placement (01/14/21) Social History household members: spouse Smoking Status: Former smoker details: Unknown substance use type: does not use ROS ROS Narrative Admission Review of Systems: CONSTITUTIONAL: No weight loss, fever, chills, + weakness or fatigue. HEENT: Eyes: No visual loss, blurred vision, double vision or yellow sclerae. Ears, Nose, Throat: No hearing loss, sneezing, congestion, runny nose or sore throat. SKIN: No rash or itching, lesions, wounds. CARDIOVASCULAR: + chest pleuritic pain, No syncopal events, lightheadedness/dizziness, palpitations, edema, orthopnea. RESPIRATORY: No marked shortness of breath, cough or sputum, wheezing, hemoptysis. GASTROINTESTINAL: + anorexia, nausea, vomiting, diarrhea, No abdominal pain, melena, BRBPR. GENITOURINARY: No dysuria, frequency, urgency or retention. NEUROLOGICAL: + L sided prior CVA deficits/paresthesias/aphasia, lightheadedness/dizziness, syncopal event, No headache, ataxia, change in bowel or bladder control, seizure. MUSCULOSKELETAL: + muscle, back pain, joint pain or stiffness. HEMATOLOGIC: + anemia, bleeding or bruising. LYMPHATICS: No enlarged nodes. No history of splenectomy. PSYCHIATRIC: + history of depression or anxiety. ENDOCRINOLOGIC: No reports of sweating, cold or heat intolerance. No polyuria or polydipsia. ALLERGIES: + history of rhinitis. Vital Signs Vital Signs Vital Signs: 06/05/22 20:49 Temperature 98.0 F Temperature Source Temporal Pulse Rate 56 L Respiratory Rate 18 Blood Pressure 132/90 H Blood Pressure Mean 104 Pulse Ox 100 Oxygen Delivery Method Nasal Cannula Oxygen Flow Rate (L/min) 3 Physical Exam Narrative Physical Examination: General: Awake, alert, oriented x > 3, baseline similar speech deficits with aphasia to his prior evaluations, following commands, no acute distress. Skin: Normal color, normal turgor, no icterus, no cyanosis except mild BL LE venous stasis skin changes. HEENT: AT/NC, EOMI, PERRLA, mildly dry MM, chronic speech alteration/aphasia, no carotid bruits or JVD noted; however, thickened neck makes evaluation difficult. Lungs: Diminished, > bases, appropriate effort, no rales, ronchi or wheezing. Heart: Paced, regular rate; no gallop, rub audible. Abdomen: Soft, obese, NTTP, ND, distant normal BS, no obvious HSM. Extremities: No cyanosis, clubbing or edema, see skin. Neurological: Patient awake, alert, oriented as noted, cognitive function appears baseline intact; pupils equally reactive to light and accommodation, cranial nerves grossly normal, moving all 4 extremities however does have history of chronic left-sided deficits as well as paresthesias which are stable, strength moderately to severely global decreased. Psychiatric: Affect appears fatigued, no acute current evidence of anxiety or depression but does have underlying psychiatric history. Results Lab / Micro Data Result Diagrams: 06/05/22 21:28 06/05/22 21:28 Labs: Laboratory Results - last 24 hr 06/05/22 21:28: WBC 4.6, RBC 3.63 L, Hgb 11.9 L, Hct 35.7 L, MCV 98.3 H, MCH 32.8 H, MCHC 33.3, RDW Std Deviation 50.5 H, RDW Coeff of Cinda 14.0, Plt Count 128 L, MPV 10.4, Immature Gran % (Auto) 0.400, Neut % (Auto) 65.7, Lymph % (Auto) 22.0, [place] % (Auto) 8.9, Eos % (Auto) 2.6, Baso % (Auto) 0.4, Absolute Neuts (auto) 3.0, Absolute Lymphs (auto) 1.02, Nucleated RBC % 0 06/05/22 21:28: Sodium 138, Potassium 3.6, Chloride 105, Carbon Dioxide 31.0, Anion Gap 2 L, BUN 21 H, Creatinine 1.41 H, Est GFR (MDRD) Af Amer 64, Est GFR (MDRD) Non-Af 53 L, BUN/Creatinine Ratio 14.9, Glucose 134 H, Calcium 8.1 L, Total Bilirubin 0.70, Direct Bilirubin 0.23, AST 27, ALT 39, Alkaline Phosphatase 95, Troponin I High Sens 26, Total Protein 6.9, Albumin 3.5, Globulin 3.4, Lipase 22 Micro: Microbiology 06/05/22 22:16 Stool Stool Occult Blood (MATT) - Final Assessment & Plan Assessment/Plan (1) Gastroenteritis: PLAN: Plan The patient is a 71 y/o M w/ PMHx: Anxiety and Depression, Obesity, Chronic anemia, CAD s/p CABG and PCI, HTN ,HLD, Chronic COPD w/ Chronic Hypoxic Respiratory Failure, Hx PE, Diabetes mellitus type II, Hx sick sinus syndrome s/p pacemaker placement, EKATERINA on BIPAP q HS, Reported Hx Diastolic CHF, Hx CVA w/ chronic aphasia and L sided hemiplegia, Chronic Thrombocytopenia, Chronic anemia, initially presented on 06/04/22 with N/V/D, pleuritic chest pain with stable labs, no marked findings on imaging w/ discharge to home; however, now represents to the [facility] ED on 06/05/22 with complaint of ongoing generalized myalgias and pain as well as similar persistent pleuritic chest discomfort with nausea, emesis and diarrhea which she reports has been ongoing for 2 days with increased fatigue and debility. #1. N/V/D, Gastroenteritis, potentially secondary to an acute viral etiology: We will admit to medical surgical floor, will continue judicious hydration, to be cautious we will obtain COVID PCR and will obtain enteric as well as C. difficile once stool sample available, procalcitonin requested, will not start antibiotics at this time given unclear source pending stool studies as may be viral gastroenteritis. Anti-emetics, pain regimen PRN except avoiding zofran given mildly prolonged QT, will repeat EKG in AM to reassess. Will maintain on fall precautions. Will allow clears initially and maintain on IV PPI until clinically improving with advancement of diet as tolerated. If stool studies unremarkable and is having loose stools may add loperamide. PT/OT/case management consultation for discharge planning. Will limit pain medication to low dose oral although patient specifically requesting morphine from both ED and hospitalist during evaluations of note. #2. Chronic macrocytic anemia/Fe deficiency anemia: Admission hemoglobin 11.9, similar to baseline prior but patient was on 06/04/22 Hgb 13.6 but was potentially dehydrated at that time with IVFs administered, baseline primarily 11-12 range previously, guiac negative, will continue to trend, continue supplementation and if drops further may certainly request GI consultation but no history of melanotic stools or BRBPR. #3. Chronic COPD with chronic hypoxic respiratory failure (3 L nasal cannula chronic): Will maintain on home oxygen supplementation, continue ATC budesonide, PRN albuterol, HOB, IS parameters. #4. CAD: Recent evaluation day prior with unremarkable EKG and appropriate troponin, repeat today similar. Status post CABG and PCI, will continue aspirin and Plavix, statin, Coreg regimen as well as Ranexa. #5. Chart reported Diastolic CHF: 01/19/2022 echocardiogram with normal LV size, EF 50%, technically difficult and limited study. We will continue aspirin, Plavix, statin, Coreg regimen, not on a similar/ARB, noted lisinopril allergy. #6. History of pulmonary embolism: Noted history, not currently chronically anticoagulated #7. Hypertension: We will continue patient home Coreg regimen, PRN IV hydralazine. #8. Hyperlipidemia: We will continue patient home statin therapy. #9. Diabetes mellitus type II: Hold oral home regimen, continue home insulin regimen with one half dose pending toleration of oral intake, as noted allowing clears initially with every 6 hours accu checks w/ ISS until diet advanced. #10. History sick sinus syndrome: Status post pacemaker placement. #11. Hx CVA w/ chronic L sided hemiplegia, expressive aphasia: Patient with ongoing chronic deficits, will continue aspirin, statin, hypertension regimen, diabetic regimen with alterations as noted. #12. Chronic thrombocytopenia: Admission platelets 128, prior 120-150, stable, continue to trend. #13. Obesity: Weight loss and lifestyle changes encouraged. #14. BPH: We will continue patient home Flomax and finasteride regimen. #15. Anxiety and depression: We will continue patient home escitalopram regimen. #16. GERD: Until improving will maintain on IV PPI as noted above #17. Former tobacco use: Encourage continued tobacco cessation. #18. EKATERINA: BiPAP nightly. #19. DVT prophylaxis: SCDs. #20. CODE status: Patient HCPOA is his who is present and living will is currently in place. Discussed CODE status at length including difference between FULL code, DNR-CCA and DNR-CC status. Following discussions about the differences in these status, similar to prior presentations requested Full Code status. Advanced Care Planning Face to Face Time: [] Admission Evaluation Time spent evaluating chart, patient history, patient evaluation, care planning and discussion with specialists: 75 minutes.
[2022-06-05 23:45] VITALS: BMI 36.2
[2022-06-05 23:46] VITALS: BP 143/74; PULSE 59; RESP 16; TEMP 36.3; O2SAT 100
[2022-06-05 23:47] LABS: Magnesium 1.4 mg/dL (1.6-2.6); Phosphorus 1.6 mg/dL (2.5-4.9)
[2022-06-05 23:47] LABS: Procalcitonin 0.08 ng/mL (0.00-0.09)
[2022-06-06] VITALS (11 sets, daily range): BP systolic 122–138; BP diastolic 57–79; PULSE 59–80; RESP 14–22; TEMP 36.4–37; O2SAT 92–100; BMI 36.1
[2022-06-06] MEDS: Acetaminophen 325 MG Tablet 650 MG PO (00:33)
[2022-06-06] MEDS: 0.9% Normal Saline 1,000 ML 75 ML IV (00:33)
[2022-06-06] MEDS: oxyCODONE 5 MG Tablet PO (00:34)
[2022-06-06] MEDS: Pantoprazole Sodium 40 MG Tablet PO ×3 (00:35→21:51)
[2022-06-06] MEDS: Ranolazine 500 MG Tablet PO ×2 (00:35→11:29)
[2022-06-06 01:31] LABS: Bedside Glucose 113 mg/dL (74-106)
[2022-06-06 01:31] LABS: Bedside Glucose 64 mg/dL (74-106)
[2022-06-06 06:40] LABS: Absolute Lymphocyte Count 1.03 X10^3/uL (0.83-4.51); Absolute Neutrophil Count 2.8 X10^3/uL (2.0-7.7); Basophil# 0.02 X10^3/uL; Basophil% 0.5 % (0-1); Eosinophil# 0.13 X10^3/uL; Hematocrit 33.9 % (40-54); Lymphocyte # 1.03 X10^3/ul (0.83-4.51); Lymphocyte % 23.4 % (19-41); Mean Corp Hgb Conc 32.4 g/dL (32-36); Mean Corpuscular Hgb 31.8 pg (27.0-32.0); Mean Platelet Vol. 10.3 fl (6.2-12.0); Monocyte# 0.42 X10^3/uL; Monocyte% 9.5 % (0-10); NRBC Flagged by Analyzer 0 % (0-5); Neutrophil # 2.79 X10^3/uL (2.7-7.7); Neutrophil % 63.4 % (47-70); Platelet Count 114 K/mm3 (150-450); RBC Distribution Width CV 14.3 % (11.6-14.6); RBC Distribution Width SD 50.4 fl (35.1-43.9); Red Blood Count 3.46 M/mm3 (4.6-6.2); White Blood Count 4.4 K/mm3 (4.4-11.0)
[2022-06-06 06:45] LABS: Bedside Glucose 91 mg/dL (74-106)
[2022-06-06 07:13] LABS: AST(SGOT) 28 U/L (15-37); Alanine Aminotransfer ALT/SGPT 36 U/L (16-61); Albumin, Serum 3.1 g/dL (3.2-5.0); Alkaline Phosphatase 74 U/L (45-117); Anion Gap 2 (5-15); BUN 23 mg/dL (7-18); BUN/Creat Ratio 21.7 RATIO (10-20); Calcium,Total 7.6 mg/dL (8.5-10.1); Chloride 108 mmol/L (98-107); Creatinine, Serum 1.06 mg/dL (0.70-1.30); EST Glomerular Filtration Rate 73 mL/min (>60); Est Glom Filt Rate - Afr Amer 88 mL/min (>60); Globulin 3.2 g/dL (2.2-4.2); Glucose 90 mg/dL (74-106); Potassium 3.5 mmol/L (3.5-5.1); Protein, Total 6.3 g/dL (6.4-8.2); Sodium Level 138 mmol/L (136-145)
--- NOTE | 2022-06-06 08:00 | EKG12_ITS ---
Test Reason : CP Blood Pressure : / mmHG Vent. Rate : 062 BPM Atrial Rate : 062 BPM P-R Int : 196 ms QRS Dur : 200 ms QT Int : 542 ms P-R-T Axes : 000 -60 118 degrees QTc Int : 550 ms AV dual-paced rhythm Abnormal ECG Confirmed by PADILLA GUALPLA, CALI ([id number]), city editor NADINE FERRER ([id number]) on 06/09/2022 12:35:20 PM Referred By: ELPIDIO Confirmed By:CALI CAUSEY MD
[2022-06-06 08:33] LABS: Magnesium 1.7 mg/dL (1.6-2.6)
[2022-06-06] MEDS: Finasteride 5 MG Tablet PO (09:26)
[2022-06-06] MEDS: Ferrous Sulfate 325 MG Tablet PO ×2 (09:26→18:12)
[2022-06-06] MEDS: Aspirin E.C. 81 MG Tablet PO (09:26)
[2022-06-06] MEDS: Escitalopram Oxalate 10 MG Tablet PO (09:27)
[2022-06-06] MEDS: Fenofibrate 48 MG Tablet PO (09:27)
[2022-06-06] MEDS: Carvedilol 25 MG Tablet PO ×2 (09:27→21:50)
[2022-06-06] MEDS: Clopidogrel Bisulfate 75 MG Tablet PO (09:27)
[2022-06-06] MEDS: Magnesium Chloride 64 MG Delay Rel.Tablet 128 MG PO ×2 (09:27→21:50)
[2022-06-06] MEDS: Menthol/Lanolin/Calamine/Znox 113 GM Tube 1 APPLIC TOPICAL ×4 (10:20→21:50)
[2022-06-06] MEDS: Albuterol 2.5 MG/3 ML VIAL.NEB. INHALATION ×3 (10:47→18:54)
[2022-06-06] MEDS: Insulin Lispro 100 UNIT/ML INSULN.PEN SC ×3 (11:25→21:51)
[2022-06-06 12:00] LABS: Bedside Glucose 156 mg/dL (74-106)
--- NOTE | 2022-06-06 12:10 | CASEMGMT ---
KRISTI GERONIMO COMPUTER AIDED DESIGN DRAFTER CM to room to meet with patient and , who is at bedside, for initial transition planning/care coordination assessment. KRISTI GERONIMO introduced self and role at [facility]. Pt and voice understanding and consents to assessment at this time. Care providers, pharmacy, and demographics verified/updated at this time. PCP: [facility] Specialists: Sees body shop floorperson and net developer architect @ [facility] Preferred Pharmacy: [facility] for short-term fill. [facility] for long-term fill. Insurance: [place], [facility] A only [facility] Benefit: Through [facility]. Living Arrangements: Pt lives w/ in one-story home w/1 step to enter. Pt independent w/ADL's. supportive and manages pt's medications and appts. Transportation: drives DME: Has the following DME: cane, walker, W/C, RTS, BSC, electric scooter, shower chair, BIPAP, O2 through [facility] @ 3l/m w/exertion s needed and bleeds in through BIPAP, pulse ox, nebulizer, glucometer, rollator, and have a medical alert button, but it is currently disconnected. and pt state no need for further DME at this time. HHC/SNF: [facility], [facility], and [place] SNF's. Pt has had [facility] and [facility] in the past. Discussed discharge planning. Pt wishes to return home. He and interested in HHC. [facility] 1st choice. [facility] 2nd choice. They decline wanting list of other options. Leann, MS3 KRISTI GERONIMO, made aware. Pt and deny having any other concerns or home-going needs. FERGUSON form explained re: Observation status for treatment of gastroenteritis.? Explained hospitalization will be paid per?his insurance policy for Outpatient billing?and condition will continue to be evaluated for Inpt necessity. Pt and verbalize understanding and do not have further questions. ?Form signed, placed in chart, and pt given form as well. PLAN: Home w/ and HHC. Wendy ATKINSON RN, CM
--- NOTE | 2022-06-06 13:36 | CASEMGMT ---
Discharge Planning Referral was sent to [facility] Rylie Godinez
--- NOTE | 2022-06-06 14:47 | PN_ITS ---
Subjective Subjective Patient seen and examined. He was admitted with a complaint of nausea and vomiting and diarrhea. He states the nausea and vomiting and diarrhea have resolved. He feels better. He denies any abdominal pain, or any other symptoms. Review of systems otherwise negative. Objective Data Objective Data Vital Signs: Vital Signs Temp Pulse Resp BP Pulse Ox O2 Del Method O2 Flow Rate 98.6 F 65 18 136/79 H 92 Nasal Cannula 3 06/06/22 09:24 06/06/22 10:48 06/06/22 10:48 06/06/22 09:24 06/06/22 10:48 06/06/22 10:48 06/06/22 12:29 FiO2 30 06/06/22 06:39 Oxygen Flow Rate (L/min) 3 Oxygen Delivery Method Nasal Cannula Weight: 252 lb 3.341 oz Body Mass Index (BMI) 36.1 Intake & Output: Intake and Output for Last 24 Hours 06/04/22 06/05/22 06/06/22 23:59 23:59 23:59 Intake Total 1835 / 1835 Output Total 650 / 650 Balance 1185 / 1185 Lab / Micro Data Result Diagrams: 06/06/22 06:10 06/06/22 06:10 Labs: Laboratory Results - last 24 hr 06/05/22 21:28: WBC 4.6, RBC 3.63 L, Hgb 11.9 L, Hct 35.7 L, MCV 98.3 H, MCH 32.8 H, MCHC 33.3, RDW Std Deviation 50.5 H, RDW Coeff of Cinda 14.0, Plt Count 128 L, MPV 10.4, Immature Gran % (Auto) 0.400, Neut % (Auto) 65.7, Lymph % (Auto) 22.0, [place] % (Auto) 8.9, Eos % (Auto) 2.6, Baso % (Auto) 0.4, Absolute Neuts (auto) 3.0, Absolute Lymphs (auto) 1.02, Nucleated RBC % 0 06/05/22 21:28: Sodium 138, Potassium 3.6, Chloride 105, Carbon Dioxide 31.0, Anion Gap 2 L, BUN 21 H, Creatinine 1.41 H, Est GFR (MDRD) Af Amer 64, Est GFR (MDRD) Non-Af 53 L, BUN/Creatinine Ratio 14.9, Glucose 134 H, Calcium 8.1 L, Total Bilirubin 0.70, Direct Bilirubin 0.23, AST 27, ALT 39, Alkaline Phosphatase 95, Troponin I High Sens 26, Total Protein 6.9, Albumin 3.5, Globulin 3.4, Lipase 22 06/05/22 21:28: Phosphorus 1.6 L, Magnesium 1.4 L 06/05/22 23:00: COVID-19 (SAULO) Not Detected 06/05/22 23:05: Procalcitonin 0.08 06/06/22 00:36: POC Glucose 64 L 06/06/22 01:09: POC Glucose 113 H 06/06/22 06:10: WBC 4.4, RBC 3.46 L, Hgb 11.0 L, Hct 33.9 L, MCV 98.0 H, MCH 31.8, MCHC 32.4, RDW Std Deviation 50.4 H, RDW Coeff of Cinda 14.3, Plt Count 114 L, MPV 10.3, Immature Gran % (Auto) 0.200, Neut % (Auto) 63.4, Lymph % (Auto) 23.4, [place] % (Auto) 9.5, Eos % (Auto) 3.0, Baso % (Auto) 0.5, Absolute Neuts (auto) 2.8, Absolute Lymphs (auto) 1.03, Nucleated RBC % 0 06/06/22 06:10: Sodium 138, Potassium 3.5, Chloride 108 H, Carbon Dioxide 28.0, Anion Gap 2 L, BUN 23 H, Creatinine 1.06, Estim Creat Clear Calc 66.00, Est GFR (MDRD) Af Amer 88, Est GFR (MDRD) Non-Af 73, BUN/Creatinine Ratio 21.7 H, Glucose 90, Calcium 7.6 L, Total Bilirubin 0.70, AST 28, ALT 36, Alkaline Phosphatase 74, Total Protein 6.3 L, Albumin 3.1 L, Globulin 3.2, Albumin/Globulin Ratio 1.0 06/06/22 06:10: Magnesium 1.7 06/06/22 06:24: POC Glucose 91 06/06/22 11:24: POC Glucose 156 H Micro: Microbiology 06/05/22 22:16 Stool Stool Occult Blood (MATT) - Final Physical Exam Const alert and no apparent distress General Appearance: cooperative HEENT normocephalic, head/scalp atraumatic and moist oral mucous membranes Eyes PERRL and EOMs intact bilaterally Neck no lymphadenopathy and supple General: trachea midline Lymph Lymphatic: no lymphadenopathy noted and no lymphedema noted Resp Resp Narrative: mildly diminished breath sounds bibasally, no wheezes or crackles. On room air. Cardio regular rate, regular rhythm, S1 normal heart sound and S2 normal heart sound GI normal to inspection, nondistended, normoactive bowel sounds, soft to palpation, non-tender and non-distended Extremity normal capillary refill, no clubbing, cyanosis or edema and no calf tenderness Skin General Skin Exam: no breakdown Neuro CN's II-XII intact bilaterally, no focal motor deficits, no sensory deficits noted and deep tendon reflexes 2+ bilaterally Coordination / Balance: [id number] test normal Psych thought process normal and cooperative Appearance: appropriate Assessment & Plan Assessment/Plan (1) Gastroenteritis: (2) Gastroenteritis: PLAN: Plan #Acute gastroenteritis * diarrhea has resolved and he feels much better. * C Diff and stool studies ordered. Diarrhea has currently resolved. * IV Zofran as needed. Continue gentle hydration with IV fluids. * Advance diet as tolerated #Chronic hypoxic respiratory failure due to COPD: On 3 L of oxygen at home. Breathing treatments of bronchodilators. #CAD: S/p CABG and PCI. On aspirin and Plavix as well as high intensity statin and Coreg and also Ranexa. #Hypertension: On Coreg. IV hydralazine as needed #Heart failure preserved ejection fraction: Has known EF of 50%. Stable. #Hyperlipidemia: On statin #Type 2 diabetes mellitus: Oral meds on hold. On Lantus. Was started on half dose on admission due to the gastroenteritis. Advance diet as tolerated and put on full dose if he tolerates an oral diet. 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 Will monitor. #Anxiety and depression: on escitalopram #EKATERINA: on BIPAP DVT prophylaxis: SCDs Code status: full code * Charges/Coding Visit Charges Inpatient E&M: 30606 Subs Hosp L2
--- NOTE | 2022-06-06 14:50 | CASEMGMT ---
Pt accepted by [facility] and they will plan for SOC on Thursday. Pt aware. Green sheet on chart.
[2022-06-06 18:30] LABS: Bedside Glucose 274 mg/dL (74-106)
[2022-06-06] MEDS: Budesonide Respules 0.5 MG/2 ML AMPUL.NEB. INHALATION (18:54)
[2022-06-06] MEDS: Tamsulosin HCl 0.4 MG Capsule PO (21:50)
[2022-06-06] MEDS: Atorvastatin Calcium 80 MG Tablet PO (21:50)
[2022-06-06 22:00] LABS: Bedside Glucose 238 mg/dL (74-106)
[2022-06-07] VITALS (7 sets, daily range): BP systolic 115–133; BP diastolic 62–74; PULSE 60–66; RESP 14–26; TEMP 36.6–36.9; O2SAT 90–97; BMI 36.6
[2022-06-07] MEDS: Insulin Lispro 100 UNIT/ML INSULN.PEN SC (05:52)
[2022-06-07 06:15] LABS: Bedside Glucose 210 mg/dL (74-106)
[2022-06-07 06:31] LABS: Absolute Neutrophil Count 2.9 X10^3/uL (2.0-7.7); Basophil# 0.01 X10^3/uL; Basophil% 0.2 % (0-1); Eosinophil# 0.11 X10^3/uL; Eosinophils% 2.6 % (0-5); Hematocrit 33.6 % (40-54); Hemoglobin 11.4 g/dL (13.0-16.5); Lymphocyte % 19.1 % (19-41); Mean Corp Hgb Conc 33.9 g/dL (32-36); Mean Corpuscular Hgb 33.6 pg (27.0-32.0); Mean Corpuscular Volume 99.1 fL (80-94); Mean Platelet Vol. 10.4 fl (6.2-12.0); Monocyte# 0.36 X10^3/uL; Monocyte% 8.6 % (0-10); NRBC Flagged by Analyzer 0 % (0-5); Neutrophil # 2.89 X10^3/uL (2.7-7.7); Platelet Count 120 K/mm3 (150-450); RBC Distribution Width CV 14.3 % (11.6-14.6); RBC Distribution Width SD 51.8 fl (35.1-43.9); Red Blood Count 3.39 M/mm3 (4.6-6.2); White Blood Count 4.2 K/mm3 (4.4-11.0)
[2022-06-07 06:56] LABS: Anion Gap 1 (5-15); BUN 14 mg/dL (7-18); BUN/Creat Ratio 17.8 RATIO (10-20); Calcium,Total 7.6 mg/dL (8.5-10.1); Chloride 105 mmol/L (98-107); Creatinine, Serum 0.79 mg/dL (0.70-1.30); EST Glomerular Filtration Rate 103 mL/min (>60); Est Glom Filt Rate - Afr Amer 125 mL/min (>60); Estimated Creatinine Clearance 69.96 ml/min; Glucose 214 mg/dL (74-106); Potassium 3.6 mmol/L (3.5-5.1); Sodium Level 136 mmol/L (136-145)
[2022-06-07] MEDS: Pantoprazole Sodium 40 MG Tablet PO (10:41)
[2022-06-07] MEDS: Aspirin E.C. 81 MG Tablet PO (10:41)
[2022-06-07] MEDS: Carvedilol 25 MG Tablet PO (10:41)
[2022-06-07] MEDS: Finasteride 5 MG Tablet PO (10:42)
[2022-06-07] MEDS: Magnesium Chloride 64 MG Delay Rel.Tablet 128 MG PO (10:42)
[2022-06-07] MEDS: Fenofibrate 48 MG Tablet PO (10:42)
[2022-06-07] MEDS: Escitalopram Oxalate 10 MG Tablet PO (10:43)
[2022-06-07] MEDS: Clopidogrel Bisulfate 75 MG Tablet PO (10:44)
[2022-06-07] MEDS: Budesonide Respules 0.5 MG/2 ML AMPUL.NEB. INHALATION (11:13)
--- NOTE | 2022-06-07 11:35 | DS.PCM_ITS ---
Providers Date of Admission: 06/05/22 Date of Discharge: 06/07/22 Primary Care Physician: [facility] Reason For Visit: GASTROENTERITIS Diagnosis Discharge Diagnosis (1) Gastroenteritis: Status: Acute Code(s): K52.9 - Noninfective gastroenteritis and colitis, unspecified (2) Gastroenteritis: Status: Acute Code(s): K52.9 - Noninfective gastroenteritis and colitis, unspecified Plan #Acute gastroenteritis * diarrhea has resolved and he feels much better. * C Diff and stool studies ordered. Diarrhea has currently resolved. * IV Zofran as needed. Continue gentle hydration with IV fluids. * Advance diet as tolerated #Chronic hypoxic respiratory failure due to COPD: On 3 L of oxygen at home. Breathing treatments of bronchodilators. #CAD: S/p CABG and PCI. On aspirin and Plavix as well as high intensity statin and Coreg and also Ranexa. #Hypertension: On Coreg. IV hydralazine as needed #Heart failure preserved ejection fraction: Has known EF of 50%. Stable. #Hyperlipidemia: On statin #Type 2 diabetes mellitus: Oral meds on hold. On Lantus. Was started on half dose on admission due to the gastroenteritis. Advance diet as tolerated and put on full dose if he tolerates an oral diet. 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 Will monitor. #Anxiety and depression: on escitalopram #EKATERINA: on BIPAP DVT prophylaxis: SCDs Code status: full code * Medications at Discharge Home Medications aspirin 81 mg tablet,delayed release 81 mg PO DAILY HEART HEALTH 06/11/18 atorvastatin 80 mg tablet 80 mg PO QHS cholesterol 06/11/18 cholecalciferol (vitamin D3) 25 mcg (1,000 unit) tablet (Vitamin D3) 3,000 units PO DAILY supplement 06/11/18 escitalopram oxalate 10 mg tablet 10 mg PO DAILY depression 06/11/18 finasteride 5 mg tablet 5 mg PO DAILY prostate 06/11/18 insulin regular hum U-500 conc 500 unit/mL(3 mL) subcut pen (Humulin R U-500 (Conc) Insulin Kwikpen) 110 unit SQ BID diabetes 06/11/18 nitroglycerin 0.4 mg sublingual tablet 0.4 mg sublingual Q5M PRN Chest Pain #30 TABLETS 07/22/18 pantoprazole 40 mg tablet,delayed release 40 mg PO BID GERD 05/18/20 carvedilol 25 mg tablet 25 mg PO BID blood pressure 06/22/20 ranolazine 500 mg tablet,extended release,12 hr 500 mg PO Q12H chest pain 06/22/20 tamsulosin 0.4 mg capsule 0.4 mg PO QHS PROSTATE 08/10/20 clopidogrel 75 mg tablet (Plavix) 75 mg PO DAILY blood thinner 01/07/21 glucose 4 gram chewable tablet 16 g PO Q15M PRN Hypoglycemia 08/17/21 albuterol sulfate 2.5 mg/3 mL (0.083 %) solution for nebulization 2.5 mg inhalation Q6H PRN Shortness Of Breath Or Wheezing 12/12/21 fenofibrate nanocrystallized 48 mg tablet 48 mg PO DAILY cholesterol 12/12/21 ferrous sulfate 325 mg (65 mg iron) tablet 325 mg PO BID SUPPLEMENT 12/12/21 guaifenesin 100 mg/5 mL oral liquid 200 mg PO TID PRN Cough 12/12/21 ketoconazole 2 % shampoo 1 applic topical DAILY dry scalp 12/12/21 magnesium oxide 420 mg tablet 420 mg PO BID SUPPLEMENT 12/12/21 multivitamin with minerals 1 tab PO DAILY SUPPLEMENT 12/12/21 acetaminophen 325 mg tablet (Tylenol) 650 mg PO Q8H PRN PRN Pain #30 tabs 04/17/22 spironolactone 25 mg tablet 25 mg PO DAILY 06/05/22 Hospital Course Operations None Procedures None Summary of Care Provided Minutes Spent on Discharge: 45 Hospital Course: Patient is a 71 y/o male with a PMH as outlined who was admitted via the ED on 06/07/2022 with a complaint of generalised pain, nausea, vomiting and diarrhea which had been going on for 2 days prior to admission. He had been seen a few days prior to coming to the ED and had had a full work-up including CT of the chest abdomen and pelvis which were unremarkable. He came back about 36 hours later because his nausea and vomiting was persistent. He was admitted and managed for acute gastroenteritis. Stool studies and C Diff screen was ordered, but diarrhea resolved and didnt recur. He was started back on a diet which he tolerated and diet was advanced successfully. Patient remained stable and was discharged home on 06/07/2022. He is to follow-up with his primary care doctor within 1 to 2 weeks. Patient seen and examined prior to discharge. He had no complaints and had an uneventful night. Review of systems otherwise negative. Labs and vitals reviewed. Home medication reviewed and reconciled. Physical Exam Const alert, oriented x3 and no apparent distress General Appearance: cooperative, comfortable and well kempt Orientation / Consciousness: awake HEENT normocephalic, head/scalp atraumatic, hearing grossly normal bilaterally and moist oral mucous membranes Mouth: oral and palatal mucosa normal Eyes PERRL and EOMs intact bilaterally Neck no lymphadenopathy and supple General: trachea midline Lymph Lymphatic: no lymphadenopathy noted and no lymphedema noted Resp Resp Narrative: mildly diminished breath sounds bibasally, no wheezes or crackles. On room air. Cardio regular rate, regular rhythm, S1 normal heart sound and S2 normal heart sound GI normal to inspection, nondistended, normoactive bowel sounds, soft to palpation, non-tender and non-distended Extremity normal to inspection, full ROM, normal capillary refill, no clubbing, cyanosis or edema and no calf tenderness Skin no rashes or lesions noted General Skin Exam: no breakdown Neuro oriented x3, CN's II-XII intact bilaterally, moves all extremities, no focal motor deficits, no sensory deficits noted and deep tendon reflexes 2+ bilaterall y Coordination / Balance: [id number] test normal Psych thought process normal and cooperative Appearance: appropriate Weight / BMI Weight Weight: 255 lb 8.252 oz Body Mass Index (BMI) 36.6 ABG / Lab / Microbiology Data Result Diagrams: 06/07/22 05:38 06/07/22 05:38 Laboratory: Laboratory Results - last 24 hr 06/06/22 11:24: POC Glucose 156 H 06/06/22 18:08: POC Glucose 274 H 06/06/22 21:38: POC Glucose 238 H 06/07/22 05:38: WBC 4.2 L, RBC 3.39 L, Hgb 11.4 L, Hct 33.6 L, MCV 99.1 H, MCH 33.6 H, MCHC 33.9, RDW Std Deviation 51.8 H, RDW Coeff of Cinda 14.3, Plt Count 120 L, MPV 10.4, Immature Gran % (Auto) 0.500, Neut % (Auto) 69.0, Lymph % (Auto) 19.1, [place] % (Auto) 8.6, Eos % (Auto) 2.6, Baso % (Auto) 0.2, Absolute Neuts (auto) 2.9, Absolute Lymphs (auto) 0.80 L, Nucleated RBC % 0 06/07/22 05:38: Sodium 136, Potassium 3.6, Chloride 105, Carbon Dioxide 30.0, Anion Gap 1 L, BUN 14, Creatinine 0.79, Estim Creat Clear Calc 69.96, Est GFR (MDRD) Af Amer 125, Est GFR (MDRD) Non-Af 103, BUN/Creatinine Ratio 17.8, Glucose 214 H, Calcium 7.6 L 06/07/22 05:52: POC Glucose 210 H Microbiology: Microbiology 06/06/22 12:30 Stool C. difficile DNA Amplification - Final 06/06/22 12:30 Stool Enteric Bacteriology - Final 06/05/22 22:16 Stool Stool Occult Blood (MATT) - Final D/C Instructions Discharge Diet: Low fat / Low cholesterol Discharge Activity: Return to Normal Activity Weight Bearing Status: Weight bearing as tolerated Call your doctor if you observe: Fever of 101 or Higher and - (worsening diarrhea) Meaningful Use Info Meaningful Use Diagnoses (Choose all that apply): None applicable Discharge Plan Admission Admit Date/Time: 06/05/22 22:44 Primary Reason for Your Visit: gastroenteritis Attending Provider: Patito Barnes Primary Care Provider: [facility] Consulting Providers: Lamar Brown Instructions Patient Instructions: ED Gastroenteritis, Viral (Adult) Discharge Orders/Prescriptions Prescriptions: Continued clopidogrel [Plavix] 75 mg tablet 75 mg PO DAILY atorvastatin 80 MG tablet 80 mg PO QHS aspirin 81 MG tablet 81 mg PO DAILY finasteride 5 MG tablet 5 mg PO DAILY escitalopram oxalate 10 MG tablet 10 mg PO DAILY cholecalciferol (vitamin D3) [Vitamin D3] 1,000 UNIT tablet 3,000 units PO DAILY Humulin R U-500 (Conc) Kwikpen 500 UNIT/ML insulin pen 110 unit SQ BID nitroglycerin 0.4 MG tablet, sublingual 0.4 mg sublingual Q5M PRN (Reason: Chest Pain) Qty: 30 0RF pantoprazole 40 MG tablet 40 mg PO BID carvedilol 25 MG tablet 25 mg PO BID ranolazine 500 mg Tablet Extended Release 12 Hr 500 mg PO Q12H tamsulosin 0.4 MG capsule 0.4 mg PO QHS glucose 4 gram Tablet,Chewable 16 g PO Q15M PRN (Reason: Hypoglycemia) magnesium oxide 420 mg Tablet 420 mg PO BID ketoconazole 2 % Shampoo 1 applic TOPICAL DAILY albuterol sulfate 2.5 mg /3 mL (0.083 %) Solution For Nebulization 2.5 mg INHALATION Q6H PRN (Reason: Shortness Of Breath Or Wheezing) guaifenesin 100 mg/5 mL Liquid 200 mg PO TID PRN (Reason: Cough) multivitamin with minerals Tablet 1 tab PO DAILY fenofibrate nanocrystallized 48 mg Tablet 48 mg PO DAILY ferrous sulfate 325 mg (65 mg iron) tablet 325 mg PO BID acetaminophen [Tylenol] 325 MG tablet 650 mg PO Q8H PRN PRN (Reason: Pain) Qty: 30 0RF spironolactone 25 mg Tablet 25 mg PO DAILY Referrals / Follow Up: [facility] [Primary Care Provider] - Within 2 Weeks Disposition Disposition (needs filled in before D/C Order can be placed): Home Health Service Charges/Coding Visit Charges Inpatient E&M: 95143 Disch Hosp >30min
--- NOTE | 2022-06-09 10:28 | CASEMGMT ---
Attached dc instructions and notified [facility] that pt was dc'd on 06/07 via [facility].
== END 2022-06-07 12:13 | disposition home health service (06) ==
LOC: ED 22:44 → MS3 22:58
PROVIDERS: Admitting Provider Family Medicine; Emergency Provider Emergency Medicine; Visit Provider Student in an Organized Health Care Education/Training Program
DX: K52.9 Noninfective gastroenteritis and colitis, unspecified (principal); I69.354 Hemiplegia and hemiparesis following cerebral infarction affecting left non-dominant side; J44.9 Chronic obstructive pulmonary disease, unspecified; I50.30 Unspecified diastolic (congestive) heart failure; I11.0 Hypertensive heart disease with heart failure; J96.11 Chronic respiratory failure with hypoxia; E11.9 Type 2 diabetes mellitus without complications; Z79.4 Long term (current) use of insulin; R53.81 Other malaise; I69.322 Dysarthria following cerebral infarction; Z87.891 Personal history of nicotine dependence; F41.9 Anxiety disorder, unspecified; Z79.02 Long term (current) use of antithrombotics/antiplatelets; Z79.82 Long term (current) use of aspirin; Z95.0 Presence of cardiac pacemaker; I25.10 Atherosclerotic heart disease of native coronary artery without angina pectoris; E78.5 Hyperlipidemia, unspecified; G47.33 Obstructive sleep apnea (adult) (pediatric); Z79.899 Other long term (current) drug therapy; F32.A Depression, unspecified
CPT/HCPCS: 36415; 80048; 80053; 80076; 82274; 82962; 83690; 83735; 84100; 84145; 84484; 85025; 87493; 87506; 87635; 93005; 94002; 94003; 94640; 94668; 94762; 96361; 96374; 96375; 97110; 97162; 97166; 97530; 99221; 99252; 99285; J7030; A4216; G0378; G0463; U0003; U0005

== ENCOUNTER 2022-06-14 11:00 | Emergency (ER) | payer OTHER, SELFPAY ==
[2022-06-14 11:01] VITALS: BP 158/71; PULSE 56; RESP 20; TEMP 36.2; O2SAT 100
[2022-06-14 11:04] VITALS: BMI 37.3
--- NOTE | 2022-06-14 11:18 | RAD_ITS ---
STUDY: X-RAY CHEST REASON FOR EXAM: Male, 72 years old. SOB TECHNIQUE: Single AP portable view of the chest. COMPARISON: June 04, 2022 chest x-ray June 04, 2022 CT scan chest FINDINGS: Visualized left-sided pacemaker with leads overlying the right atrium and ventricle. The interstitial markings, are minimally prominent there is no change since prior study. There is still slight blunting of the left costophrenic angle. Sternal cerclage wires are present from a prior sternotomy. Normal mediastinum and cata. Normal visualized pulmonary arteries. There is atherosclerotic tortuosity of the aortic arch and descending thoracic aorta. There are diffuse degenerative changes of the visualized thoracic spine. Again noted are multilevel sideplates and cortical screws transfixing the left-sided ribs. There is no demonstrated abnormality of the visualized soft tissue structures of the upper abdomen. RAD/Chest 1 View (Portable) IMPRESSION: Stable chest. Trace left effusion. Status post sternotomy status post CABG status post pacemaker., Multilevel left-sided sideplate and cortical screws transfixing the ribs. Electronically Signed: Kristyn Zhang MD at 12:35 EDT Reading Location ID and State: [facility] / [place] Tel , Service support ,
[2022-06-14 11:19] VITALS: O2SAT 96
--- NOTE | 2022-06-14 11:21 | EDS_ITS ---
HPI History of Present Illness Chief Complaint: Shortness of Breath Informant: patient and spouse/S.O. Narrative Narrative: Patient presents with dyspnea for about 3 days. History does vary a bit between the patient and his . Patient they agree that he has been more short of breath and coughing more for about 3 days. But no sputum production. No fevers or chills. No myalgias. He has soreness across his chest. He denies weight gain but she states he has gained a couple pounds. He denies that his leg swelling is different than normal but she thinks it is. He does have a history of COPD and is on 3 L all the time. He has not increased this. However, he does have an O2 sat at home that was given to him as part of preparing for eye surgery to record his saturations. He states it was reading about 92% but now it will drop as low as 87% when he gets up out of bed and moves around. They both agree that he has been wheezing a lot more. He states that his breathing treatments help him but they do not last that long. He also states that even at baseline he is short of breath all the time but he is more short of breath than normal. He states although his chest is sore from coughing he does not think this is his heart because is not painful and it does not feel anything like his heart problems in the past. I also reviewed prior reports/discharge summary from his inpatient stay about a week ago. He states all the GI symptoms are gone. [facility] Medical History Abnormal EKG Anemia Anemia Atherosclerotic heart disease marshall coronary artery w/angina pectoris BiPAP (biphasic positive airway pressure) dependence CAD (coronary artery disease) Chest pain Chronic hyperglycemia Chronic respiratory failure Congestive heart failure (CHF) Conversion reaction COPD (chronic obstructive pulmonary disease) Diabetes DM type 2 (diabetes mellitus, type 2) Dysarthria Essential (primary) hypertension Former smoker Hemiparesis, left History of fractured rib History of TIAs Hyperlipidemia Myocardial infarct Obesity On home oxygen therapy EKATERINA (obstructive sleep apnea) Pacemaker Pacemaker battery depletion Pulmonary embolism Sick sinus syndrome Stroke/cerebrovascular accident Wears hearing aid in both ears Home Medications aspirin 81 mg tablet,delayed release 81 mg PO DAILY HEART HEALTH 06/11/18 [History Last Taken 04/14/22] atorvastatin 80 mg tablet 80 mg PO QHS cholesterol 06/11/18 [History Last Taken 04/14/22] cholecalciferol (vitamin D3) 25 mcg (1,000 unit) tablet (Vitamin D3) 3,000 units PO DAILY supplement 06/11/18 [History Last Taken 04/14/22] escitalopram oxalate 10 mg tablet 10 mg PO DAILY depression 06/11/18 [History Last Taken 04/14/22] finasteride 5 mg tablet 5 mg PO DAILY prostate 06/11/18 [History Last Taken 04/14/22] insulin regular hum U-500 conc 500 unit/mL(3 mL) subcut pen (Humulin R U-500 (Conc) Insulin Kwikpen) 110 unit SQ BID diabetes 06/11/18 [History Last Taken 12/12/21] nitroglycerin 0.4 mg sublingual tablet 0.4 mg sublingual Q5M PRN Chest Pain #30 TABLETS 07/22/18 [Rx Last Taken 01/17/20] pantoprazole 40 mg tablet,delayed release 40 mg PO BID GERD 05/18/20 [History Last Taken 04/14/22] carvedilol 25 mg tablet 25 mg PO BID blood pressure 06/22/20 [History Last Taken 04/14/22] ranolazine 500 mg tablet,extended release,12 hr 500 mg PO Q12H chest pain 06/22/20 [History Last Taken 04/14/22] tamsulosin 0.4 mg capsule 0.4 mg PO QHS PROSTATE 08/10/20 [History Last Taken 04/14/22] clopidogrel 75 mg tablet (Plavix) 75 mg PO DAILY blood thinner 01/07/21 [History Last Taken 04/14/22] glucose 4 gram chewable tablet 16 g PO Q15M PRN Hypoglycemia 08/17/21 [History Last Taken Unknown] albuterol sulfate 2.5 mg/3 mL (0.083 %) solution for nebulization 2.5 mg inhalation Q6H PRN Shortness Of Breath Or Wheezing 12/12/21 [History Last Taken 12/12/21] fenofibrate nanocrystallized 48 mg tablet 48 mg PO DAILY cholesterol 12/12/21 [History Last Taken 04/14/22] ferrous sulfate 325 mg (65 mg iron) tablet 325 mg PO BID SUPPLEMENT 12/12/21 [History Last Taken 04/14/22] guaifenesin 100 mg/5 mL oral liquid 200 mg PO TID PRN Cough 12/12/21 [History Last Taken 1 Week Ago ~12/05/21] ketoconazole 2 % shampoo 1 applic topical DAILY dry scalp 12/12/21 [History Last Taken 04/14/22] magnesium oxide 420 mg tablet 420 mg PO BID SUPPLEMENT 12/12/21 [History Last Taken 04/14/22] multivitamin with minerals 1 tab PO DAILY SUPPLEMENT 12/12/21 [History Last Taken 04/14/22] acetaminophen 325 mg tablet (Tylenol) 650 mg PO Q8H PRN PRN Pain #30 tabs 04/17/22 [Rx Last Taken 12/11/21] spironolactone 25 mg tablet 25 mg PO DAILY 06/05/22 [History Last Taken Unknown] prednisone 20 mg tablet 60 mg PO DAILY #15 TABLETS 06/14/22 [Rx Last Taken Unknown] Allergy/AdvReac Type Severity Reaction Status Date / Time ezetimibe Allergy Unknown Verified 06/14/22 11:04 Fish Containing Products Allergy Unknown Verified 06/14/22 11:04 glyburide Allergy Unknown Verified 06/14/22 11:04 isosorbide Allergy PT UNSURE Verified 06/14/22 11:04 OF REACTION lisinopril Allergy Unknown Verified 06/14/22 11:04 metformin Allergy Nausea Verified 06/14/22 11:04 metoprolol Allergy Unknown Verified 06/14/22 11:04 simvastatin Allergy Unknown Verified 06/14/22 11:04 gabapentin AdvReac Other Verified 06/14/22 11:04 Family History Father No problems noted. Family History no significant family his Surgical History H/O coronary artery bypass surgery History of cholecystectomy History of coronary artery stent placement History of knee replacement procedure of left knee History of permanent cardiac pacemaker placement (01/14/21) Social History household members: spouse Smoking Status: Former smoker details: Unknown substance use type: does not use ROS ROS ED Constitutional Constitutional ED: Denies chills or fever(s) ENT ENT ED: Denies rhinorrhea or sore throat Cardiovascular Cardiovascular: Reports other Details: He states his chest is sore with coughing but he denies pain ; Denies chest pain, palpitations or racing heartbeat Respiratory/Chest Respiratory/Chest: Reports cough, dyspnea and dyspnea on exertion; Denies sputum Gastrointestinal Gastrointestinal: Denies abdominal pain, diarrhea, nausea or vomiting Genitourinary Genitourinary ED: Denies dysuria Musculoskeletal Musculoskeletal: Denies myalgias Integumentary Denies rash Neurologic Neurologic: Denies headache(s) Endocrine Endocrinology: Denies polydipsia or polyuria Hematologic/Lymphatic Hematologic/Lymphatic: Denies lymphadenopathy EXAM Physical Exam Narrative Exam Narrative: CONSTITUTIONAL: Patient is nontoxic in appearance. The patient looks comfortable. Work of breathing looks slightly increased to me but states that his breathing sitting down is really baseline. HEENT: No notable trauma. Mucous membranes moist. No sinus tenderness. No indication of pain with swallowing. EYES: No conjunctival injection. No proptosis. NECK:No JVD. No stridor. CARDIOVASCULAR: Regular rate at about 60. Regular rhythm. No notable murmur. No JVD. RESPIRATORY: To me the patient looks like he is working a little bit to breathe but his saturations are normal on his 3 L. He does have decreased breath sounds throughout and expiratory wheezing with forced expiration. I do not think he is moving a lot of air. I do not hear significant rales at his bases. GASTROINTESTINAL: Not distended but there is obesity. Bowel sounds are normal. No tenderness. No guarding. No rebound. No palpable mass. No bruit is heard. GENITOURINARY: No tenderness over the bladder. No CVA tenderness. MUSCULOSKELETAL: Atraumatic. There is mild +1 bilateral and equal peripheral edema in the pretibial area distally. No cord. No tenderness along the deep venous system. No asymmetry. No distended veins. NEUROLOGICAL: Patient is alert and appropriate. No focal deficit noted. Not lethargic or sleepy SKIN: No noted rashes. No diaphoresis. PSYCHIATRIC: Patient is calm. Mood is appropriate. Const Vital Signs: 06/14/22 11:01 06/14/22 11:19 06/14/22 11:27 Temperature 97.1 F L Temperature Source Temporal Pulse Rate 56 L 60 Respiratory Rate 20 H 18 Respiratory Effort Normal Respiratory Depth Normal Respiratory Pattern Normal Normal Blood Pressure 158/71 H Blood Pressure Mean 100 Pulse Ox 100 Oxygen Delivery Method Nasal Cannula Nasal Cannula Oxygen Flow Rate (L/min) 3 3 MDM MDM MDM Narrative Medical decision making narrative: Independent interpretation the patient's single view chest x-ray shows his pacer, median sternotomy scar, and his left rib plating. But it looks like chronic changes without any acute change or significant change from the prior film from 10 days ago. Final reading is similar. Patient CBC shows mild baseline anemia. White count is normal. Electrolytes show no marked abnormalities. His glucose is high at 248 but again this is common for him. His troponin is negative and at his normal baseline at 27. BNP was normal at 92. We walked the patient in the department. His saturations stayed well into the 90s and he walked actually quite a distance in the department and longer than he states he would walk at home. His lungs sound much better now. I think his symptoms are primarily from COPD. We will get him home on a short course of steroids. He has no fever no productivity and no white count I do not think we will start antibiotics. He also just got over a GI illness and would like to not worsen that again. Lab Data Attestation: I reviewed the patient's lab results. Labs: Laboratory Results - last 24 hr 06/14/22 06/14/22 06/14/22 11:30 11:30 11:30 WBC 4.8 RBC 3.72 L Hgb 12.3 L Hct 36.7 L MCV 98.7 H MCH 33.1 H MCHC 33.5 RDW Std Deviation 51.9 H RDW Coeff of Cinda 14.4 Plt Count 146 L MPV 10.4 Immature Gran % (Auto) 0.200 Neut % (Auto) 78.6 H Lymph % (Auto) 13.4 L [place] % (Auto) 5.7 Eos % (Auto) 1.9 Baso % (Auto) 0.2 Absolute Neuts (auto) 3.8 Absolute Lymphs (auto) 0.64 L Nucleated RBC % 0 Sodium 136 Potassium 4.1 Chloride 102 Carbon Dioxide 32.0 Anion Gap 2 L BUN 18 Creatinine 1.15 Estim Creat Clear Calc 59.95 Est GFR (MDRD) Af Amer 80 Est GFR (MDRD) Non-Af 66 BUN/Creatinine Ratio 15.7 Glucose 248 H Calcium 8.4 L Troponin I High Sens 27 B-Natriuretic Peptide 92.6 Radiography Diagnostic Testing: Clinical Impression(s) from Imaging Studies Chest X-Ray 06/14/22 11:18 IMPRESSION: Stable chest. Trace left effusion. Status post sternotomy status post CABG status post pacemaker., Multilevel left-sided sideplate and cortical screws transfixing the ribs. Electronically Signed: Kristyn Zhang MD at 12:35 EDT , EKG Initial EKG: Comments: My independent interpretation of the EKG shows a AV sequentially paced rhythm no indication of other acute process. Interpretation beyond this is limited due to its being paced. It is similar to 05 June 2022. Discharge Plan Triage Chief Complaint: Shortness of Breath ED Provider: Edwin Olivas Dx/Rx/DC Orders Clinical Impression: COPD exacerbation, Cough Instructions: ED COPD Flare Prescriptions: New prednisone 20 mg tablet 60 mg PO DAILY Qty: 15 0RF No Action clopidogrel [Plavix] 75 mg tablet 75 mg PO DAILY atorvastatin 80 MG tablet 80 mg PO QHS aspirin 81 MG tablet 81 mg PO DAILY finasteride 5 MG tablet 5 mg PO DAILY escitalopram oxalate 10 MG tablet 10 mg PO DAILY cholecalciferol (vitamin D3) [Vitamin D3] 1,000 UNIT tablet 3,000 units PO DAILY Humulin R U-500 (Conc) Kwikpen 500 UNIT/ML insulin pen 110 unit SQ BID nitroglycerin 0.4 MG tablet, sublingual 0.4 mg sublingual Q5M PRN (Reason: Chest Pain) Qty: 30 0RF pantoprazole 40 MG tablet 40 mg PO BID carvedilol 25 MG tablet 25 mg PO BID ranolazine 500 mg Tablet Extended Release 12 Hr 500 mg PO Q12H tamsulosin 0.4 MG capsule 0.4 mg PO QHS glucose 4 gram Tablet,Chewable 16 g PO Q15M PRN (Reason: Hypoglycemia) magnesium oxide 420 mg Tablet 420 mg PO BID ketoconazole 2 % Shampoo 1 applic TOPICAL DAILY albuterol sulfate 2.5 mg /3 mL (0.083 %) Solution For Nebulization 2.5 mg INHALATION Q6H PRN (Reason: Shortness Of Breath Or Wheezing) guaifenesin 100 mg/5 mL Liquid 200 mg PO TID PRN (Reason: Cough) multivitamin with minerals Tablet 1 tab PO DAILY fenofibrate nanocrystallized 48 mg Tablet 48 mg PO DAILY ferrous sulfate 325 mg (65 mg iron) tablet 325 mg PO BID acetaminophen [Tylenol] 325 MG tablet 650 mg PO Q8H PRN PRN (Reason: Pain) Qty: 30 0RF spironolactone 25 mg Tablet 25 mg PO DAILY Primary Care Provider[facility] Referrals[place] [facility] [Primary Care Provider] - 3-5 Days Disposition Disposition: Home, Self Care
[2022-06-14] MEDS: Albuterol 2.5 MG/3 ML VIAL.NEB. INHALATION (11:26)
[2022-06-14] MEDS: Ipratropium/Albuterol Sulfate 3 ML AMPUL.NEB INHALATION (11:26)
[2022-06-14 11:27] VITALS: PULSE 60; RESP 18
[2022-06-14] MEDS: MethylPREDNISolone 125 MG/2 ML Vial IV (11:35)
[2022-06-14 11:47] LABS: Absolute Lymphocyte Count 0.64 X10^3/uL (0.83-4.51); Absolute Neutrophil Count 3.8 X10^3/uL (2.0-7.7); Basophil# 0.01 X10^3/uL; Basophil% 0.2 % (0-1); Eosinophil# 0.09 X10^3/uL; Eosinophils% 1.9 % (0-5); Hematocrit 36.7 % (40-54); Hemoglobin 12.3 g/dL (13.0-16.5); Lymphocyte # 0.64 X10^3/ul (0.83-4.51); Lymphocyte % 13.4 % (19-41); Mean Corp Hgb Conc 33.5 g/dL (32-36); Mean Corpuscular Hgb 33.1 pg (27.0-32.0); Mean Corpuscular Volume 98.7 fL (80-94); Mean Platelet Vol. 10.4 fl (6.2-12.0); Monocyte# 0.27 X10^3/uL; Monocyte% 5.7 % (0-10); NRBC Flagged by Analyzer 0 % (0-5); Neutrophil # 3.75 X10^3/uL (2.7-7.7); Neutrophil % 78.6 % (47-70); Platelet Count 146 K/mm3 (150-450); RBC Distribution Width CV 14.4 % (11.6-14.6); RBC Distribution Width SD 51.9 fl (35.1-43.9); Red Blood Count 3.72 M/mm3 (4.6-6.2); White Blood Count 4.8 K/mm3 (4.4-11.0)
[2022-06-14 12:04] LABS: Anion Gap 2 (5-15); BUN 18 mg/dL (7-18); BUN/Creat Ratio 15.7 RATIO (10-20); Calcium,Total 8.4 mg/dL (8.5-10.1); Chloride 102 mmol/L (98-107); Creatinine, Serum 1.15 mg/dL (0.70-1.30); EST Glomerular Filtration Rate 66 mL/min (>60); Est Glom Filt Rate - Afr Amer 80 mL/min (>60); Estimated Creatinine Clearance 59.95 ml/min; Glucose 248 mg/dL (74-106); Potassium 4.1 mmol/L (3.5-5.1); Sodium Level 136 mmol/L (136-145); Troponin-I HS 27 pg/mL (3.0-78.0)
[2022-06-14 12:20] LABS: BNP,B-Type NATRIURETIC PEPTIDE 92.6 pg/mL (0-100)
--- NOTE | 2022-06-14 12:39 | ED.RN ---
PT RINGS OUT REQUESTING PAIN MEDICATION FOR THE SECOND TIME. PHYSICIAN AWARE
[2022-06-14 13:00] VITALS: O2SAT 96
[2022-06-14] MEDS: Morphine 4 MG/ML Syringe IV (13:10)
[2022-06-14 13:18] VITALS: BP 154/72; PULSE 72; RESP 20; O2SAT 96
== END 2022-06-14 13:27 | disposition home or self-care (01) ==
PROVIDERS: Emergency Provider Emergency Medicine; Visit Provider Emergency Medicine
DX: J44.1 Chronic obstructive pulmonary disease with (acute) exacerbation (principal); I50.9 Heart failure, unspecified; I11.0 Hypertensive heart disease with heart failure; E11.65 Type 2 diabetes mellitus with hyperglycemia; Z95.0 Presence of cardiac pacemaker; I25.10 Atherosclerotic heart disease of native coronary artery without angina pectoris; Z87.891 Personal history of nicotine dependence; E78.5 Hyperlipidemia, unspecified; R05.9 Cough, unspecified; Z79.82 Long term (current) use of aspirin; Z79.899 Other long term (current) drug therapy; Z99.81 Dependence on supplemental oxygen; Z79.02 Long term (current) use of antithrombotics/antiplatelets; Z95.5 Presence of coronary angioplasty implant and graft
CPT/HCPCS: 71045; 80048; 83880; 84484; 85025; 87428; 93005; 94640; 96374; 96375; 99284; A4216

== ENCOUNTER 2022-06-24 03:08 | Emergency (ER) | payer OTHER, SELFPAY ==
[2022-06-24 03:09] VITALS: BP 159/77; PULSE 72; RESP 22; TEMP 36.8; O2SAT 100; BMI 35.3
--- NOTE | 2022-06-24 03:44 | EKG12_ITS ---
Test Reason : CP Blood Pressure : / mmHG Vent. Rate : 068 BPM Atrial Rate : 068 BPM P-R Int : 146 ms QRS Dur : 204 ms QT Int : 502 ms P-R-T Axes : 080 -62 111 degrees QTc Int : 533 ms AV dual-paced rhythm in a pattern of bigeminy Abnormal ECG Confirmed by BRYN GUALLPA, JULIO C ([id number]), senior technical editor NADINE FERRER ([id number]) on 06/24/2022 1:15:20 PM Referred By: LILLIE Confirmed By:BELEN CLEMENTE MD
--- NOTE | 2022-06-24 03:44 | ED.VIS.CHEST ---
HPI History of Present Illness Chief Complaint: Chest Pain Informant: patient and spouse/S.O. Narrative Narrative: Patient has been having substernal pressure nonpleuritic for 24-48 hours now, he states it has not gone away. He states he has some neck discomfort and some low back discomfort, they did not start at the same time as the chest discomfort. Denies any other symptoms such as abdominal pain, significant dyspnea, palpitations or syncope. History is somewhat limited from the patient because he is significant dysarthria, which is baseline for him. This comes and goes, he is a longstanding history of this as well as spells of passing out. The states that the frequency of these spells varies from week to week. However, he commonly has the chest discomfort when he has a spell. She states since this has been going on for over a day or so, she has been pleading with him to come to the ER and he finally agreed to now at 3 AM. [facility] Medical History Abnormal EKG Anemia Anemia Atherosclerotic heart disease [place] coronary artery w/angina pectoris BiPAP (biphasic positive airway pressure) dependence CAD (coronary artery disease) Chest pain Chronic hyperglycemia Chronic respiratory failure Congestive heart failure (CHF) Conversion reaction COPD (chronic obstructive pulmonary disease) Diabetes DM type 2 (diabetes mellitus, type 2) Dysarthria Essential (primary) hypertension Former smoker Hemiparesis, left History of fractured rib History of TIAs Hyperlipidemia Myocardial infarct Obesity On home oxygen therapy EKATERINA (obstructive sleep apnea) Pacemaker Pacemaker battery depletion Pulmonary embolism Sick sinus syndrome Stroke/cerebrovascular accident Wears hearing aid in both ears Home Medications aspirin 81 mg tablet,delayed release 81 mg PO DAILY HEART HEALTH 06/11/18 [History Last Taken 04/14/22] atorvastatin 80 mg tablet 80 mg PO QHS cholesterol 06/11/18 [History Last Taken 04/14/22] cholecalciferol (vitamin D3) 25 mcg (1,000 unit) tablet (Vitamin D3) 3,000 units PO DAILY supplement 06/11/18 [History Last Taken 04/14/22] escitalopram oxalate 10 mg tablet 10 mg PO DAILY depression 06/11/18 [History Last Taken 04/14/22] finasteride 5 mg tablet 5 mg PO DAILY prostate 06/11/18 [History Last Taken 04/14/22] insulin regular hum U-500 conc 500 unit/mL(3 mL) subcut pen (Humulin R U-500 (Conc) Insulin Kwikpen) 110 unit SQ BID diabetes 06/11/18 [History Last Taken 12/12/21] nitroglycerin 0.4 mg sublingual tablet 0.4 mg sublingual Q5M PRN Chest Pain #30 TABLETS 07/22/18 [Rx Last Taken 01/17/20] pantoprazole 40 mg tablet,delayed release 40 mg PO BID GERD 05/18/20 [History Last Taken 04/14/22] carvedilol 25 mg tablet 25 mg PO BID blood pressure 06/22/20 [History Last Taken 04/14/22] ranolazine 500 mg tablet,extended release,12 hr 500 mg PO Q12H chest pain 06/22/20 [History Last Taken 04/14/22] tamsulosin 0.4 mg capsule 0.4 mg PO QHS PROSTATE 08/10/20 [History Last Taken 04/14/22] clopidogrel 75 mg tablet (Plavix) 75 mg PO DAILY blood thinner 01/07/21 [History Last Taken 04/14/22] glucose 4 gram chewable tablet 16 g PO Q15M PRN Hypoglycemia 08/17/21 [History Last Taken Unknown] albuterol sulfate 2.5 mg/3 mL (0.083 %) solution for nebulization 2.5 mg inhalation Q6H PRN Shortness Of Breath Or Wheezing 12/12/21 [History Last Taken 12/12/21] fenofibrate nanocrystallized 48 mg tablet 48 mg PO DAILY cholesterol 12/12/21 [History Last Taken 04/14/22] ferrous sulfate 325 mg (65 mg iron) tablet 325 mg PO BID SUPPLEMENT 12/12/21 [History Last Taken 04/14/22] guaifenesin 100 mg/5 mL oral liquid 200 mg PO TID PRN Cough 12/12/21 [History Last Taken 1 Week Ago ~12/05/21] ketoconazole 2 % shampoo 1 applic topical DAILY dry scalp 12/12/21 [History Last Taken 04/14/22] magnesium oxide 420 mg tablet 420 mg PO BID SUPPLEMENT 12/12/21 [History Last Taken 04/14/22] multivitamin with minerals 1 tab PO DAILY SUPPLEMENT 12/12/21 [History Last Taken 04/14/22] acetaminophen 325 mg tablet (Tylenol) 650 mg PO Q8H PRN PRN Pain #30 tabs 04/17/22 [Rx Last Taken 12/11/21] spironolactone 25 mg tablet 25 mg PO DAILY 06/05/22 [History Last Taken Unknown] prednisone 20 mg tablet 60 mg PO DAILY #15 TABLETS 06/14/22 [Rx Last Taken Unknown] Allergy/AdvReac Type Severity Reaction Status Date / Time ezetimibe Allergy Unknown Verified 06/14/22 11:04 Fish Containing Products Allergy Unknown Verified 06/14/22 11:04 glyburide Allergy Unknown Verified 06/14/22 11:04 isosorbide Allergy PT UNSURE Verified 06/14/22 11:04 OF REACTION lisinopril Allergy Unknown Verified 06/14/22 11:04 metformin Allergy Nausea Verified 06/14/22 11:04 metoprolol Allergy Unknown Verified 06/14/22 11:04 simvastatin Allergy Unknown Verified 06/14/22 11:04 gabapentin AdvReac Other Verified 06/14/22 11:04 Family History Father No problems noted. Family History no significant family his Surgical History H/O coronary artery bypass surgery History of cholecystectomy History of coronary artery stent placement History of knee replacement procedure of left knee History of permanent cardiac pacemaker placement (01/14/21) Social History household members: spouse Smoking Status: Former smoker details: Unknown substance use type: does not use ROS ROS ED Constitutional Constitutional ED: Denies chills or fever(s) Eyes Eyes: Denies change in vision or diplopia ENT ENT ED: Denies rhinorrhea or sore throat Cardiovascular Cardiovascular: Reports chest pain; Denies palpitations Respiratory/Chest Respiratory/Chest: Denies cough or dyspnea Gastrointestinal Gastrointestinal: Denies abdominal pain, diarrhea, nausea or vomiting Genitourinary Genitourinary ED: Denies dysuria or hematuria Musculoskeletal Musculoskeletal: Reports back pain and neck pain Integumentary Denies abscess or rash Neurologic Neurologic: Reports other Details: Dysarthria chronic at baseline according to ; Denies headache(s), paresthesias or weakness Psychiatric Psychiatric: Denies anxiety or suicidal thoughts EXAM Physical Exam Const Vital Signs: 06/24/22 03:09 06/24/22 03:11 06/24/22 04:15 Temperature 98.2 F Temperature Source Temporal Pulse Rate 72 68 Respiratory Rate 22 H 17 Respiratory Effort Normal Blood Pressure 159/77 H 118/66 Blood Pressure Mean 104 83 Pulse Ox 100 99 Oxygen Delivery Method Nasal Cannula Nasal Cannula Oxygen Flow Rate (L/min) 3 3 Positive well nourished, well developed and obese General Appearance ED: well developed and NAD Nutritional Appearance: obese HEENT Reports moist mucous membranes normocephalic and atraumatic Eyes PERRL and EOMs intact bilaterally Neck full ROM, no lymphadenopathy and supple Resp normal respiratory effort and clear to auscultation bilaterally Cardio regular rate, regular rhythm and no murmurs GI non-tender and non-distended Auscultation: normoactive bowel sounds Palpation: soft Back/Spine no CVA tenderness General Back: other FROM Extremity normal to inspection General Extremety ED: Negative for edema, pulses abnormal or tenderness General Extremity: Negative for edema or pulses abnormal Neuro oriented x3, CN's II-XII intact bilaterally and no sensory deficits noted Neuro Narrative: Dysarthria to the point where it limits history. Baseline according to . Otherwise normal neurologic exam. Sensorium / Orientation: awake and alert Motor Exam: strength 5/5 throughout Skin no rashes or lesions noted and no wounds MDM MDM MDM Narrative Medical decision making narrative: Patient has had this discomfort before and he has had a for several days now constant. His troponin is 32 well within normal limits for our assay, and his EKG shows a paced rhythm unchanged compared with his prior, I do not think he needs another chest x-ray since he had one just over 1 week ago that was stable chronic changes. He was given Mylanta while we are waiting for his work-up to return, he states this did not help and he needs pain medication. Nursing states he frequently asked for narcotics when he is here. We will give him a dose of morphine, and plan is for discharge home with close outpatient follow-up encouraged. History & Record Review Additional record(s) reviewed:: Prior ED visit Lab Data Attestation: I reviewed the patient's lab results. Labs: Laboratory Results - last 24 hr 06/24/22 06/24/22 03:05 03:05 WBC 6.8 RBC 4.51 L Hgb 14.7 Hct 44.2 MCV 98.0 H MCH 32.6 H MCHC 33.3 RDW Std Deviation 50.1 H RDW Coeff of Cinda 13.8 Plt Count 149 L MPV 10.4 Immature Gran % (Auto) 0.600 Neut % (Auto) 64.2 Lymph % (Auto) 24.6 [place] % (Auto) 8.9 Eos % (Auto) 1.6 Baso % (Auto) 0.1 Absolute Neuts (auto) 4.3 Absolute Lymphs (auto) 1.66 Nucleated RBC % 0 Sodium 137 Potassium 3.6 Chloride 100 Carbon Dioxide 30.0 Anion Gap 7 BUN 26 H Creatinine 1.09 Estim Creat Clear Calc 63.25 Est GFR (MDRD) Af Amer 86 Est GFR (MDRD) Non-Af 71 BUN/Creatinine Ratio 23.9 H Glucose 227 H Calcium 8.5 Troponin I High Sens 32 Rhythm Strip Rhythm Strip: Paced Rate: 70 Ectopy: None EKG Initial EKG: Attestation: I personally reviewed and interpreted this EKG as follows: Interpretation: No Acute Injury Pattern and Paced Prior EKG tracings: available for review Prior: Unchanged Discharge Plan Triage Chief Complaint: Chest Pain ED Provider: Shai Hassan Dx/Rx/DC Orders Clinical Impression: Chest pain, unspecified Instructions: ED Chest Pain, Uncertain Cause Prescriptions: No Action clopidogrel [Plavix] 75 mg tablet 75 mg PO DAILY atorvastatin 80 MG tablet 80 mg PO QHS aspirin 81 MG tablet 81 mg PO DAILY finasteride 5 MG tablet 5 mg PO DAILY escitalopram oxalate 10 MG tablet 10 mg PO DAILY cholecalciferol (vitamin D3) [Vitamin D3] 1,000 UNIT tablet 3,000 units PO DAILY Humulin R U-500 (Conc) Kwikpen 500 UNIT/ML insulin pen 110 unit SQ BID nitroglycerin 0.4 MG tablet, sublingual 0.4 mg sublingual Q5M PRN (Reason: Chest Pain) Qty: 30 0RF pantoprazole 40 MG tablet 40 mg PO BID carvedilol 25 MG tablet 25 mg PO BID ranolazine 500 mg Tablet Extended Release 12 Hr 500 mg PO Q12H tamsulosin 0.4 MG capsule 0.4 mg PO QHS glucose 4 gram Tablet,Chewable 16 g PO Q15M PRN (Reason: Hypoglycemia) magnesium oxide 420 mg Tablet 420 mg PO BID ketoconazole 2 % Shampoo 1 applic TOPICAL DAILY albuterol sulfate 2.5 mg /3 mL (0.083 %) Solution For Nebulization 2.5 mg INHALATION Q6H PRN (Reason: Shortness Of Breath Or Wheezing) guaifenesin 100 mg/5 mL Liquid 200 mg PO TID PRN (Reason: Cough) multivitamin with minerals Tablet 1 tab PO DAILY fenofibrate nanocrystallized 48 mg Tablet 48 mg PO DAILY ferrous sulfate 325 mg (65 mg iron) tablet 325 mg PO BID acetaminophen [Tylenol] 325 MG tablet 650 mg PO Q8H PRN PRN (Reason: Pain) Qty: 30 0RF spironolactone 25 mg Tablet 25 mg PO DAILY prednisone 20 mg tablet 60 mg PO DAILY Qty: 15 0RF Primary Care Provider: [facility] [Primary [facility] Provider] - As soon as possible Disposition Disposition: Home, Self Care
[2022-06-24 03:55] LABS: Absolute Lymphocyte Count 1.66 X10^3/uL (0.83-4.51); Absolute Neutrophil Count 4.3 X10^3/uL (2.0-7.7); Basophil# 0.01 X10^3/uL; Basophil% 0.1 % (0-1); Eosinophil# 0.11 X10^3/uL; Eosinophils% 1.6 % (0-5); Hematocrit 44.2 % (40-54); Hemoglobin 14.7 g/dL (13.0-16.5); Lymphocyte # 1.66 X10^3/ul (0.83-4.51); Lymphocyte % 24.6 % (19-41); Mean Corp Hgb Conc 33.3 g/dL (32-36); Mean Corpuscular Hgb 32.6 pg (27.0-32.0); Mean Platelet Vol. 10.4 fl (6.2-12.0); Monocyte% 8.9 % (0-10); NRBC Flagged by Analyzer 0 % (0-5); Neutrophil # 4.34 X10^3/uL (2.7-7.7); Neutrophil % 64.2 % (47-70); Platelet Count 149 K/mm3 (150-450); RBC Distribution Width CV 13.8 % (11.6-14.6); RBC Distribution Width SD 50.1 fl (35.1-43.9); Red Blood Count 4.51 M/mm3 (4.6-6.2); White Blood Count 6.8 K/mm3 (4.4-11.0)
[2022-06-24] MEDS: Mag Hydrox/Al Hydrox/Simeth 30 ML UDC PO (04:14)
[2022-06-24 04:15] VITALS: BP 118/66; PULSE 68; RESP 17; O2SAT 99
[2022-06-24 04:25] LABS: Anion Gap 7 (5-15); BUN 26 mg/dL (7-18); BUN/Creat Ratio 23.9 RATIO (10-20); Calcium,Total 8.5 mg/dL (8.5-10.1); Chloride 100 mmol/L (98-107); Creatinine, Serum 1.09 mg/dL (0.70-1.30); EST Glomerular Filtration Rate 71 mL/min (>60); Est Glom Filt Rate - Afr Amer 86 mL/min (>60); Estimated Creatinine Clearance 63.25 ml/min; Glucose 227 mg/dL (74-106); Potassium 3.6 mmol/L (3.5-5.1); Sodium Level 137 mmol/L (136-145); Troponin-I HS 32 pg/mL (3.0-78.0)
[2022-06-24 05:00] VITALS: BP 131/70; PULSE 71; RESP 20; O2SAT 99
[2022-06-24] MEDS: Morphine 4 MG/ML Syringe IV (05:06)
[2022-06-24 06:11] VITALS: BP 138/74; PULSE 72; RESP 16; O2SAT 98
== END 2022-06-24 06:12 | disposition home or self-care (01) ==
PROVIDERS: Emergency Provider Emergency Medicine; Visit Provider Emergency Medicine
DX: R07.9 Chest pain, unspecified (principal); J44.9 Chronic obstructive pulmonary disease, unspecified; I11.0 Hypertensive heart disease with heart failure; I50.9 Heart failure, unspecified; E11.9 Type 2 diabetes mellitus without complications; E78.5 Hyperlipidemia, unspecified; I25.10 Atherosclerotic heart disease of native coronary artery without angina pectoris; Z87.891 Personal history of nicotine dependence; Z86.73 Personal history of transient ischemic attack (TIA), and cerebral infarction without residual deficits; G47.33 Obstructive sleep apnea (adult) (pediatric); I25.2 Old myocardial infarction; Z79.82 Long term (current) use of aspirin
CPT/HCPCS: 80048; 84484; 85025; 93005; 96374; 99285; A4216

== ENCOUNTER 2022-08-19 13:14 | Emergency (ER) | payer OTHER, SELFPAY ==
[2022-08-19 13:16] VITALS: BP 177/78; PULSE 62; RESP 18; TEMP 36.6; O2SAT 99
[2022-08-19 13:30] VITALS: BP 147/79; PULSE 60; RESP 22; O2SAT 97
--- NOTE | 2022-08-19 14:07 | EKG12_ITS ---
Test Reason : SOB Blood Pressure : / mmHG Vent. Rate : 062 BPM Atrial Rate : 062 BPM P-R Int : 196 ms QRS Dur : 200 ms QT Int : 516 ms P-R-T Axes : 268 -59 118 degrees QTc Int : 523 ms AV dual-paced rhythm Abnormal ECG Confirmed by PADILLA GUALLPA, CALI ([id number]), graphic editor NADINE FERRER ([id number]) on 08/20/2022 10:57:20 AM Referred By: JOSE/ANGIE Confirmed By:CALI CAUSEY MD
--- NOTE | 2022-08-19 14:26 | CT_ITS ---
STUDY: CT BRAIN WITHOUT CONTRAST REASON FOR EXAM: Male, 72 years old. left sided weakness Individualized dose optimization techniques were used for this CT. TECHNIQUE: Transaxial CT imaging of the brain was performed without administration of intravenous contrast material. COMPARISON: 04/15/2022 FINDINGS: There are calcifications around the carotid artery. These are noted in the cavernous carotid arteries. Normal calvarium. Normal soft tissues. There is mild cerebral atrophy with widening of the extra-axial spaces and ventricular dilatation. There are areas of decreased attenuation within the white matter tracts of the supratentorial brain, consistent with microvascular disease changes. Normal basal ganglia and thalami. Normal brainstem. There is mild cerebellar atrophy. There is no intracranial hemorrhage. There are no findings of an acute ischemic infarction. Normal visualized paranasal sinuses. ASPECTS Score for Acute Strokes: 11/25 CT/Brain/Head without Contrast IMPRESSION: There are no acute findings. Chronic involutional changes of the brain. Electronically Signed: Harjit Perry MD at 15:28 EDT ,
--- NOTE | 2022-08-19 14:26 | ED.VIS.DYS ---
HPI History of Present Illness Chief Complaint: Shortness of Breath Narrative Narrative: 72-year-old male presenting with shortness of breath. He has history of COPD. Patient states he woke up this morning at about 11 and felt like he was short of breath. He has an oxygen concentrator as well as a CPAP he wears at night. Patient also states he woke up with some chest tightness across his chest. He feels like it did radiate into the left arm. He complains of left arm and leg weakness however. He does not have any numbness. He states he has a history of stroke in July of last year [facility] Medical History Abnormal EKG Anemia Anemia Atherosclerotic heart disease [place] coronary artery w/angina pectoris BiPAP (biphasic positive airway pressure) dependence CAD (coronary artery disease) Chest pain Chronic hyperglycemia Chronic respiratory failure Congestive heart failure (CHF) Conversion reaction COPD (chronic obstructive pulmonary disease) Diabetes DM type 2 (diabetes mellitus, type 2) Dysarthria Essential (primary) hypertension Former smoker Hemiparesis, left History of fractured rib History of TIAs Hyperlipidemia Myocardial infarct Obesity On home oxygen therapy EKATERINA (obstructive sleep apnea) Pacemaker Pacemaker battery depletion Pulmonary embolism Sick sinus syndrome Stroke/cerebrovascular accident Wears hearing aid in both ears Home Medications aspirin 81 mg tablet,delayed release 81 mg PO DAILY HEART HEALTH 06/11/18 [History Last Taken 04/14/22] atorvastatin 80 mg tablet 80 mg PO QHS cholesterol 06/11/18 [History Last Taken 04/14/22] cholecalciferol (vitamin D3) 25 mcg (1,000 unit) tablet (Vitamin D3) 3,000 units PO DAILY supplement 06/11/18 [History Last Taken 04/14/22] escitalopram oxalate 10 mg tablet 10 mg PO DAILY depression 06/11/18 [History Last Taken 04/14/22] finasteride 5 mg tablet 5 mg PO DAILY prostate 06/11/18 [History Last Taken 04/14/22] insulin regular hum U-500 conc 500 unit/mL(3 mL) subcut pen (Humulin R U-500 (Conc) Insulin Kwikpen) 110 unit SQ BID diabetes 06/11/18 [History Last Taken 12/12/21] nitroglycerin 0.4 mg sublingual tablet 0.4 mg sublingual Q5M PRN Chest Pain #30 TABLETS 07/22/18 [Rx Last Taken 01/17/20] pantoprazole 40 mg tablet,delayed release 40 mg PO BID GERD 05/18/20 [History Last Taken 04/14/22] carvedilol 25 mg tablet 25 mg PO BID blood pressure 06/22/20 [History Last Taken 04/14/22] ranolazine 500 mg tablet,extended release,12 hr 500 mg PO Q12H chest pain 06/22/20 [History Last Taken 04/14/22] tamsulosin 0.4 mg capsule 0.4 mg PO QHS PROSTATE 08/10/20 [History Last Taken 04/14/22] clopidogrel 75 mg tablet (Plavix) 75 mg PO DAILY blood thinner 01/07/21 [History Last Taken 04/14/22] glucose 4 gram chewable tablet 16 g PO Q15M PRN Hypoglycemia 08/17/21 [History Last Taken Unknown] albuterol sulfate 2.5 mg/3 mL (0.083 %) solution for nebulization 2.5 mg inhalation Q6H PRN Shortness Of Breath Or Wheezing 12/12/21 [History Last Taken 12/12/21] fenofibrate nanocrystallized 48 mg tablet 48 mg PO DAILY cholesterol 12/12/21 [History Last Taken 04/14/22] ferrous sulfate 325 mg (65 mg iron) tablet 325 mg PO BID SUPPLEMENT 12/12/21 [History Last Taken 04/14/22] guaifenesin 100 mg/5 mL oral liquid 200 mg PO TID PRN Cough 12/12/21 [History Last Taken 1 Week Ago ~12/05/21] ketoconazole 2 % shampoo 1 applic topical DAILY dry scalp 12/12/21 [History Last Taken 04/14/22] magnesium oxide 420 mg tablet 420 mg PO BID SUPPLEMENT 12/12/21 [History Last Taken 04/14/22] multivitamin with minerals 1 tab PO DAILY SUPPLEMENT 12/12/21 [History Last Taken 04/14/22] acetaminophen 325 mg tablet (Tylenol) 650 mg (2 x 325 mg) PO Q8H PRN PRN Pain #30 tabs 04/17/22 [Rx Last Taken 12/11/21] diclofenac sodium 1 % gel topical kit 2 g topical BID 08/06/22 [History Last Taken Unknown] furosemide 40 mg tablet (Lasix) 40 mg PO QAM 08/06/22 [History Last Taken Unknown] Allergy/AdvReac Type Severity Reaction Status Date / Time ezetimibe Allergy Unknown Verified 08/19/22 13:17 Fish Containing Products Allergy Unknown Verified 08/19/22 13:17 glyburide Allergy Unknown Verified 08/19/22 13:17 isosorbide Allergy PT UNSURE Verified 08/19/22 13:17 OF REACTION lisinopril Allergy Unknown Verified 08/19/22 13:17 metformin Allergy Nausea Verified 08/19/22 13:17 metoprolol Allergy Unknown Verified 08/19/22 13:17 simvastatin Allergy Unknown Verified 08/19/22 13:17 gabapentin AdvReac Other Verified 08/19/22 13:17 Family History Father No problems noted. Family History no significant family his Surgical History H/O coronary artery bypass surgery History of cholecystectomy History of coronary artery stent placement History of knee replacement procedure of left knee History of permanent cardiac pacemaker placement (01/14/21) Social History household members: spouse Smoking Status: Former smoker details: Unknown substance use type: does not use EXAM Physical Exam Const Vital Signs: 08/19/22 13:16 08/19/22 13:30 08/19/22 13:30 Temperature 97.8 F Temperature Source Temporal Pulse Rate 62 60 Respiratory Rate 18 22 H Respiratory Effort Normal Non-Labored Respiratory Pattern Tachypnea Blood Pressure 177/78 H 147/79 H Blood Pressure Mean 111 101 Pulse Ox 99 97 Oxygen Delivery Method Nasal Cannula Nasal Cannula Nasal Cannula Oxygen Flow Rate (L/min) 3 3 3 08/19/22 14:29 08/19/22 15:06 08/19/22 15:06 Temperature Temperature Source Pulse Rate 62 Respiratory Rate 16 Respiratory Effort Respiratory Pattern Blood Pressure Blood Pressure Mean Pulse Ox 96 Oxygen Delivery Method Nasal Cannula Nasal Cannula Oxygen Flow Rate (L/min) 3 3 08/19/22 17:01 08/19/22 19:00 Temperature Temperature Source Pulse Rate 66 66 Respiratory Rate 16 18 Respiratory Effort Respiratory Pattern Blood Pressure 155/83 H 162/80 H Blood Pressure Mean 107 Pulse Ox 97 98 Oxygen Delivery Method Room Air Oxygen Flow Rate (L/min) Positive well nourished General Appearance ED: NAD; Negative for pallor HEENT Reports moist mucous membranes Eyes PERRL and EOMs intact bilaterally Resp normal respiratory effort and clear to auscultation bilaterally Auscultation: Negative for rales, rhonchi or wheezes Cardio regular rate and regular rhythm GI non-tender Extremity normal to inspection Neuro oriented x3 and CN's II-XII intact bilaterally Neuro Narrative: NIH stroke scale score of 0 Psych mental status grossly normal Skin General Skin Exam: Negative for jaundice or pallor MDM MDM MDM Narrative Medical decision making narrative: Patient with chest pain and shortness of breath. He is a chronic issues. Patient also states he has had intermittent weakness in the left side of his body since his previous stroke. He states this comes and goes. He states he has been seen for this in the past. Patient is on aspirin and Plavix. CBC was obtained to assess white blood cell count, hemoglobin, platelets, differential. BMP to assess renal function, electrolytes, glucose. High-sensitivity troponin and EKG were obtained to rule out ischemic causes or dysrhythmia. BNP to assess for CHF. Chest x-ray to rule out pneumonia or CHF. Patient was given morphine and Zofran. CBC shows no leukocytosis. Hemoglobin macular stable. Platelets are slightly low at 148. Renal function and electrolytes within normal limits. Glucose 229 without anion gap. High-sensitivity troponin 24. BNP 118. EKG on my interpretation shows a ventricular paced rhythm at 62 bpm without sign of ischemic change. Chest x-ray on my interpretation shows no acute cardiopulmonary process. Patient reevaluated stating still having chest pain he was given more morphine. He states this point he is feeling better. I counseled him that his work-up was normal. I did obtain a CT of the brain as well given his intermittent weakness however there is nothing acute on this. At this point I feel he is stable for discharge home because this intermittent weakness is a chronic issue and there is nothing new on CT. [facility] Return precautions discussed. Impression: 1. chest pain 2. Dyspnea 3. Chronic left-sided weakness Lab Data Attestation: I reviewed the patient's lab results. Labs: Laboratory Results - last 24 hr 08/19/22 14:25 WBC 4.8 RBC 3.71 L Hgb 12.3 L Hct 36.7 L MCV 98.9 H MCH 33.2 H MCHC 33.5 RDW Std Deviation 49.1 H RDW Coeff of Cinda 13.7 Plt Count 148 L MPV 10.5 Immature Gran % (Auto) 0.200 Neut % (Auto) 73.7 H Lymph % (Auto) 16.5 L [place] % (Auto) 6.9 Eos % (Auto) 2.3 Baso % (Auto) 0.4 Absolute Neuts (auto) 3.5 Absolute Lymphs (auto) 0.79 L Nucleated RBC % 0 Sodium 141 Potassium 3.6 Chloride 106 Carbon Dioxide 29.0 Anion Gap 6 BUN 18 Creatinine 1.17 Estim Creat Clear Calc 58.93 Est GFR (MDRD) Af Amer 79 Est GFR (MDRD) Non-Af 65 BUN/Creatinine Ratio 15.4 Glucose 229 H Calcium 8.2 L Troponin I High Sens 24 B-Natriuretic Peptide 118.7 H Radiography Diagnostic Testing: Clinical Impression(s) from Imaging Studies Brain CT 08/19/22 14:26 IMPRESSION: There are no acute findings. Chronic involutional changes of the brain. Electronically Signed: Harjit Perry MD at 15:28 EDT , Chest X-Ray 08/19/22 14:30 IMPRESSION: There are no acute findings. Electronically Signed: Harjit Perry MD at 15:29 EDT , Discharge Plan Triage Chief Complaint: Shortness of Breath ED Provider: Cristian Oliveira Dx/Rx/DC Orders Instructions: ED Chest Pain, Uncertain Cause, ED Dyspnea Prescriptions: No Action clopidogrel [Plavix] 75 mg tablet 75 mg PO DAILY furosemide [Lasix] 40 mg tablet 40 mg PO QAM diclofenac sodium 1 % kit 2 g topical BID Rx Instructions: apply to single elbow, wrist or hand; for hand includes palm/fingers/back of hand atorvastatin 80 MG tablet 80 mg PO QHS aspirin 81 MG tablet 81 mg PO DAILY finasteride 5 MG tablet 5 mg PO DAILY escitalopram oxalate 10 MG tablet 10 mg PO DAILY cholecalciferol (vitamin D3) [Vitamin D3] 1,000 UNIT tablet 3,000 units PO DAILY Humulin R U-500 (Conc) Kwikpen 500 UNIT/ML insulin pen 110 unit SQ BID nitroglycerin 0.4 MG tablet, sublingual 0.4 mg sublingual Q5M PRN (Reason: Chest Pain) Qty: 30 0RF pantoprazole 40 MG tablet 40 mg PO BID carvedilol 25 MG tablet 25 mg PO BID ranolazine 500 mg Tablet Extended Release 12 Hr 500 mg PO Q12H tamsulosin 0.4 MG capsule 0.4 mg PO QHS glucose 4 gram Tablet,Chewable 16 g PO Q15M PRN (Reason: Hypoglycemia) magnesium oxide 420 mg Tablet 420 mg PO BID ketoconazole 2 % Shampoo 1 applic TOPICAL DAILY albuterol sulfate 2.5 mg /3 mL (0.083 %) Solution For Nebulization 2.5 mg INHALATION Q6H PRN (Reason: Shortness Of Breath Or Wheezing) guaifenesin 100 mg/5 mL Liquid 200 mg PO TID PRN (Reason: Cough) multivitamin with minerals Tablet 1 tab PO DAILY fenofibrate nanocrystallized 48 mg Tablet 48 mg PO DAILY ferrous sulfate 325 mg (65 mg iron) tablet 325 mg PO BID acetaminophen [Tylenol] 325 MG tablet 650 mg PO Q8H PRN PRN (Reason: Pain) Qty: 30 0RF [facility] - Disposition Disposition: Home, Self Care Discharge Date/Time: 08/19/22 19:02
--- NOTE | 2022-08-19 14:30 | RAD_ITS ---
STUDY: XR Chest 1 View 08/19/2022 2:27 PM REASON FOR EXAM: Male, 72 years old. CHEST PAIN chest pain COMPARISON: 06.14.22 TECHNIQUE: XR Chest 1 View FINDINGS: There is no demonstrated pleural abnormality. There is a left sided pacemaker batterypack. There are multiple median sternotomy wires. Multiple left rib plates. Enlarged heart size. Normal mediastinum. Normal cata. Prominent appearing increased interstitial lung markings. Normal visualized pulmonary arteries. There is atherosclerotic calcification of the aortic arch with tortuosity. There are diffuse degenerative changes of the visualized thoracic spine. There is degenerative osteoarthritis of the bilateral shoulders. There is no demonstrated abnormality of the visualized soft tissue structures of the upper abdomen. RAD/Chest 1 View (Portable) IMPRESSION: There are no acute findings. Electronically Signed: Harjit Perry MD at 15:29 EDT ,
[2022-08-19 14:31] VITALS: BMI 36.1
[2022-08-19] MEDS: Morphine 4 MG/ML Syringe IV ×2 (14:39→17:11)
[2022-08-19] MEDS: Ondansetron 4 MG/2 ML Vial IV (14:39)
[2022-08-19 14:40] LABS: Absolute Lymphocyte Count 0.79 X10^3/uL (0.83-4.51); Absolute Neutrophil Count 3.5 X10^3/uL (2.0-7.7); Basophil# 0.02 X10^3/uL; Basophil% 0.4 % (0-1); Eosinophil# 0.11 X10^3/uL; Eosinophils% 2.3 % (0-5); Hematocrit 36.7 % (40-54); Hemoglobin 12.3 g/dL (13.0-16.5); Lymphocyte # 0.79 X10^3/ul (0.83-4.51); Lymphocyte % 16.5 % (19-41); Mean Corp Hgb Conc 33.5 g/dL (32-36); Mean Corpuscular Hgb 33.2 pg (27.0-32.0); Mean Corpuscular Volume 98.9 fL (80-94); Mean Platelet Vol. 10.5 fl (6.2-12.0); Monocyte# 0.33 X10^3/uL; Monocyte% 6.9 % (0-10); NRBC Flagged by Analyzer 0 % (0-5); Neutrophil # 3.54 X10^3/uL (2.7-7.7); Neutrophil % 73.7 % (47-70); Platelet Count 148 K/mm3 (150-450); RBC Distribution Width CV 13.7 % (11.6-14.6); RBC Distribution Width SD 49.1 fl (35.1-43.9); Red Blood Count 3.71 M/mm3 (4.6-6.2); White Blood Count 4.8 K/mm3 (4.4-11.0)
[2022-08-19 15:04] LABS: Anion Gap 6 (5-15); BUN 18 mg/dL (7-18); BUN/Creat Ratio 15.4 RATIO (10-20); Calcium,Total 8.2 mg/dL (8.5-10.1); Chloride 106 mmol/L (98-107); Creatinine, Serum 1.17 mg/dL (0.70-1.30); EST Glomerular Filtration Rate 65 mL/min (>60); Est Glom Filt Rate - Afr Amer 79 mL/min (>60); Estimated Creatinine Clearance 58.93 ml/min; Glucose 229 mg/dL (74-106); Potassium 3.6 mmol/L (3.5-5.1); Sodium Level 141 mmol/L (136-145); Troponin-I HS 24 pg/mL (3.0-78.0)
[2022-08-19 15:06] VITALS: PULSE 62; RESP 16; O2SAT 96
[2022-08-19] MEDS: Albuterol 2.5 MG/3 ML VIAL.NEB. INHALATION (15:06)
[2022-08-19] MEDS: Ipratropium/Albuterol Sulfate 3 ML AMPUL.NEB INHALATION (15:06)
[2022-08-19 15:23] LABS: BNP,B-Type NATRIURETIC PEPTIDE 118.7 pg/mL (0-100)
[2022-08-19 17:01] VITALS: BP 155/83; PULSE 66; RESP 16; O2SAT 97
[2022-08-19 18:29] VITALS: O2SAT 95
[2022-08-19 19:00] VITALS: BP 162/80; PULSE 66; RESP 18; O2SAT 98
== END 2022-08-19 19:02 | disposition home or self-care (01) ==
PROVIDERS: Emergency Provider Student in an Organized Health Care Education/Training Program; Visit Provider Student in an Organized Health Care Education/Training Program
DX: R07.9 Chest pain, unspecified (principal); I69.352 Hemiplegia and hemiparesis following cerebral infarction affecting left dominant side; J44.9 Chronic obstructive pulmonary disease, unspecified; I11.0 Hypertensive heart disease with heart failure; I50.9 Heart failure, unspecified; E11.9 Type 2 diabetes mellitus without complications; Z79.4 Long term (current) use of insulin; I25.10 Atherosclerotic heart disease of native coronary artery without angina pectoris; R53.1 Weakness; Z87.891 Personal history of nicotine dependence; E78.5 Hyperlipidemia, unspecified; Z99.89 Dependence on other enabling machines and devices; Z95.0 Presence of cardiac pacemaker; Z79.82 Long term (current) use of aspirin; Z79.899 Other long term (current) drug therapy; I25.2 Old myocardial infarction; Z79.02 Long term (current) use of antithrombotics/antiplatelets; Z90.49 Acquired absence of other specified parts of digestive tract; Z95.5 Presence of coronary angioplasty implant and graft; Z96.652 Presence of left artificial knee joint; R06.00 Dyspnea, unspecified
CPT/HCPCS: 70450; 71045; 80048; 83880; 84484; 85025; 93005; 94640; 96374; 96375; 96376; 99285; A4216; J2405

== ENCOUNTER 2022-08-27 13:32 | Emergency (ER) | payer OTHER, SELFPAY ==
[2022-08-27 13:33] VITALS: BP 152/66; PULSE 60; RESP 22; TEMP 36.6; O2SAT 93
[2022-08-27 13:39] VITALS: BMI 79.0
--- NOTE | 2022-08-27 13:50 | CM.ED ---
Social Work SW completed chart review, LW and HCPOA documents on patient's chart as of 2020. Patient's HCPOA are his , Lucina, alternate is his sister, Leni, and second alternate is his sister in law, Maryanne. Alondra Interiano MSW, TREVOR
--- NOTE | 2022-08-27 14:07 | EKG12_ITS ---
Test Reason : NEURO Blood Pressure : / mmHG Vent. Rate : 060 BPM Atrial Rate : 060 BPM P-R Int : 196 ms QRS Dur : 198 ms QT Int : 542 ms P-R-T Axes : 000 -62 119 degrees QTc Int : 542 ms AV dual-paced rhythm Abnormal ECG Confirmed by PADILLA GUALLPA, CALI ([id number]), business editor NADINE FERRER ([id number]) on 08/28/2022 2:24:58 PM Referred By: LILLIE/ELISHA Confirmed By:CALI CAUSEY MD
--- NOTE | 2022-08-27 14:08 | EDS_ITS ---
HPI History of Present Illness Chief Complaint: Alt LOC Detail of Chief Complaint: Syncope Informant: patient and spouse/S.O. Onset/Context/Timing Onset: Today Narrative Narrative: Patient was brought in from the pulmonary function lab after rapid response was called. Patient was undergoing pulmonary function testing when he reportedly became unresponsive. I am told that his eyes remained open. When ER nursing staff responded they called him by name and he started answering questions. He does not remember what happened. He does report some slight cough and congestion recently but states is not really abnormal for him. He has noted his oxygen levels dropping into the 80s. He does have home oxygen that he can use as needed. At this time he complains of generalized body pain and weakness. [facility] Medical History (Updated 08/27/22 @ 17:[address] 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 BiPAP (biphasic positive airway pressure) dependence CAD (coronary artery disease) Chest pain Chronic hyperglycemia Chronic respiratory failure Congestive heart failure (CHF) Conversion reaction COPD (chronic obstructive pulmonary disease) Diabetes DM type 2 (diabetes mellitus, type 2) Dysarthria Essential (primary) hypertension Former smoker Hemiparesis, left History of fractured rib History of TIAs Hyperlipidemia Myocardial infarct Obesity On home oxygen therapy EKATERINA (obstructive sleep apnea) Pacemaker Pacemaker battery depletion Pulmonary embolism Sick sinus syndrome Stroke/cerebrovascular accident Wears hearing aid in both ears Home Medications aspirin 81 mg tablet,delayed release 81 mg PO DAILY HEART HEALTH 06/11/18 [History Last Taken 04/14/22] atorvastatin 80 mg tablet 80 mg PO QHS cholesterol 06/11/18 [History Last Taken 04/14/22] cholecalciferol (vitamin D3) 25 mcg (1,000 unit) tablet (Vitamin D3) 3,000 units PO DAILY supplement 06/11/18 [History Last Taken 04/14/22] escitalopram oxalate 10 mg tablet 10 mg PO DAILY depression 06/11/18 [History Last Taken 04/14/22] finasteride 5 mg tablet 5 mg PO DAILY prostate 06/11/18 [History Last Taken 04/14/22] insulin regular hum U-500 conc 500 unit/mL(3 mL) subcut pen (Humulin R U-500 (Conc) Insulin Kwikpen) 110 unit SQ BID diabetes 06/11/18 [History Last Taken 12/12/21] nitroglycerin 0.4 mg sublingual tablet 0.4 mg sublingual Q5M PRN Chest Pain #30 TABLETS 07/22/18 [Rx Last Taken 01/17/20] pantoprazole 40 mg tablet,delayed release 40 mg PO BID GERD 05/18/20 [History Last Taken 04/14/22] carvedilol 25 mg tablet 25 mg PO BID blood pressure 06/22/20 [History Last Taken 04/14/22] ranolazine 500 mg tablet,extended release,12 hr 500 mg PO Q12H chest pain 06/22/20 [History Last Taken 04/14/22] tamsulosin 0.4 mg capsule 0.4 mg PO QHS PROSTATE 08/10/20 [History Last Taken 04/14/22] clopidogrel 75 mg tablet (Plavix) 75 mg PO DAILY blood thinner 01/07/21 [History Last Taken 04/14/22] glucose 4 gram chewable tablet 16 g PO Q15M PRN Hypoglycemia 08/17/21 [History Last Taken Unknown] albuterol sulfate 2.5 mg/3 mL (0.083 %) solution for nebulization 2.5 mg inhalation Q6H PRN Shortness Of Breath Or Wheezing 12/12/21 [History Last Taken 12/12/21] fenofibrate nanocrystallized 48 mg tablet 48 mg PO DAILY cholesterol 12/12/21 [History Last Taken 04/14/22] ferrous sulfate 325 mg (65 mg iron) tablet 325 mg PO BID SUPPLEMENT 12/12/21 [History Last Taken 04/14/22] guaifenesin 100 mg/5 mL oral liquid 200 mg PO TID PRN Cough 12/12/21 [History Last Taken 1 Week Ago ~12/05/21] ketoconazole 2 % shampoo 1 applic topical DAILY dry scalp 12/12/21 [History Last Taken 04/14/22] magnesium oxide 420 mg tablet 420 mg PO BID SUPPLEMENT 12/12/21 [History Last Taken 04/14/22] multivitamin with minerals 1 tab PO DAILY SUPPLEMENT 12/12/21 [History Last Taken 04/14/22] acetaminophen 325 mg tablet (Tylenol) 650 mg (2 x 325 mg) PO Q8H PRN PRN Pain #30 tabs 04/17/22 [Rx Last Taken 12/11/21] diclofenac sodium 1 % gel topical kit 2 g topical BID 08/06/22 [History Last Taken Unknown] furosemide 40 mg tablet (Lasix) 40 mg PO QAM 08/06/22 [History Last Taken Unknown] Allergy/AdvReac Type Severity Reaction Status Date / Time ezetimibe Allergy Unknown Verified 08/19/22 13:17 Fish Containing Products Allergy Unknown Verified 08/19/22 13:17 glyburide Allergy Unknown Verified 08/19/22 13:17 isosorbide Allergy PT UNSURE Verified 08/19/22 13:17 OF REACTION lisinopril Allergy Unknown Verified 08/19/22 13:17 metformin Allergy Nausea Verified 08/19/22 13:17 metoprolol Allergy Unknown Verified 08/19/22 13:17 simvastatin Allergy Unknown Verified 08/19/22 13:17 gabapentin AdvReac Other Verified 08/19/22 13:17 Family History Father No problems noted. Surgical History H/O coronary artery bypass surgery History of cholecystectomy History of coronary artery stent placement History of knee replacement procedure of left knee History of permanent cardiac pacemaker placement (01/14/21) Social History household members: spouse Smoking Status: Former smoker details: Unknown substance use type: does not use ROS ROS ED Constitutional Constitutional ED: Denies chills or fever(s) Eyes Eyes: Denies change in vision or discharge from eye(s) ENT ENT ED: Denies discharge from eye(s), rhinorrhea or sore throat Cardiovascular Cardiovascular: Reports chest pain; Denies palpitations Respiratory/Chest Respiratory/Chest: Reports cough and dyspnea Gastrointestinal Gastrointestinal: Denies abdominal pain, nausea or vomiting Genitourinary Genitourinary ED: Denies dysuria Musculoskeletal Musculoskeletal: Reports arthralgias and myalgias; Denies back pain or extremity pain Neurologic Neurologic: Reports weakness; Denies headache(s) Psychiatric Psychiatric: Denies anxiety or depression Allergic/Immunologic Allergic/Immunologic ED: Denies lip swelling or urticaria EXAM Physical Exam Const Vital Signs: 08/27/22 13:33 08/27/22 14:39 08/27/22 15:08 Temperature 98 F Temperature Source Temporal Pulse Rate 60 60 Respiratory Rate 22 H 19 H 22 H Blood Pressure 152/66 H 150/65 H Blood Pressure Mean 94 93 Pulse Ox 93 92 82 Oxygen Delivery Method Room Air Room Air Room Air Oxygen Flow Rate (L/min) 08/27/22 15:08 08/27/22 16:31 Temperature Temperature Source Pulse Rate 61 Respiratory Rate 18 22 H Blood Pressure 159/73 H Blood Pressure Mean 101 Pulse Ox 95 96 Oxygen Delivery Method Nasal Cannula Room Air Oxygen Flow Rate (L/min) 1 Positive well nourished and well developed General Appearance ED: well developed HEENT Reports normocephalic and head/scalp atraumatic Eyes PERRL and EOMs intact bilaterally Neck supple Chest Wall inspection of chest normal and palpation of chest normal Resp normal respiratory effort and clear to auscultation bilaterally Cardio regular rate and regular rhythm GI non-tender Palpation: soft Neuro oriented x3 Neuro Narrative: Chronic left-sided weakness and slurred speech secondary to prior stroke. No new deficits. Sensorium / Orientation: alert Psych mental status grossly normal Skin no rashes or lesions noted MDM MDM MDM Narrative Medical decision making narrative: Patient placed on air sampling and monitoring. EKG obtained to evaluate for cardiac arrhythmia/ischemia. Labwork obtained to evaluate for leukocytosis, anemia, and electrolyte derangement. Chest x-ray obtained to evaluate for acute lung pathology, cardiac size, or mediastinal abnormality. History & Record Review Discussion w/independent historian: Patient and Significant other Additional record(s) reviewed:: Prior ED visit and Prior labs Lab Data Attestation: I reviewed the patient's lab results. Labs: Laboratory Results - last 24 hr 08/27/22 08/27/22 14:06 16:05 WBC 5.1 RBC 3.56 L Hgb 12.0 L Hct 35.1 L MCV 98.6 H MCH 33.7 H MCHC 34.2 RDW Std Deviation 49.5 H RDW Coeff of Cinda 13.8 Plt Count 134 L MPV 10.4 Immature Gran % (Auto) 0.400 Neut % (Auto) 80.3 H Lymph % (Auto) 12.8 L Erath % (Auto) 5.3 Eos % (Auto) 1.0 Baso % (Auto) 0.2 Absolute Neuts (auto) 4.1 Absolute Lymphs (auto) 0.65 L Nucleated RBC % 0 D-Dimer Quant (PE/DVT) 0.37 Sodium 138 Potassium 3.9 Chloride 103 Carbon Dioxide 32.0 Anion Gap 3 L BUN 18 Creatinine 1.21 Estim Creat Clear Calc 56.98 Est GFR (MDRD) Af Amer 76 Est GFR (MDRD) Non-Af 63 BUN/Creatinine Ratio 14.9 Glucose 276 H Calcium 8.4 L Troponin I High Sens 19 18 Radiography Chest X-Ray - ED: 1 View, Read by ED Physician, Chronic Changes and No Infiltrates Diagnostic Testing: Clinical Impression(s) from Imaging Studies Chest X-Ray 08/27/22 14:30 IMPRESSION: Stable examination. Electronically Signed: Mick García MD at 14:51 EDT , EKG Initial EKG: Attestation: I personally reviewed and interpreted this EKG as follows: Interpretation: - (Paced rhythm at 60 bpm. No acute ischemia.) Treatment and Re-Evaluation :: CBC was normal white count with a hemoglobin of 12.0. This is consistent with his prior values. Platelet count is slightly low at 134,000. Chemistry studies are unremarkable. Initial troponin is 19 with repeat at 18. Glucose is 276. D-dimer is normal at 0.37. Portable chest x-ray per my interpretation reveals chronic changes with no focal infiltrate. Radiology interpretation is reviewed and agrees. EKG is paced and unremarkable with no changes when compared to prior. Pacemaker is interrogated. Last abnormal heart rhythm was at 130 this morning at which point his heart rate went up to 130. There appears to be no evidence of arrhythmia during this reported episode of unresponsiveness. Patient has been seen and evaluated multiple times for similar episodes. I do not feel that keeping him in the hospital overnight will be beneficial given that we have the pacer interrogation that does not reveal any evidence of a cardiac dysrhythmia. He will be discharged home with at this time. Discharge Plan Triage Chief Complaint: Alt LOC ED Provider: Elodia Good Dx/Rx/DC Orders Clinical Impression: Syncope Instructions: ED Fainting, Uncertain Cause Prescriptions: No Action clopidogrel [Plavix] 75 mg tablet 75 mg PO DAILY furosemide [Lasix] 40 mg tablet 40 mg PO QAM diclofenac sodium 1 % kit 2 g topical BID Rx Instructions: apply to single elbow, wrist or hand; for hand includes palm/fingers/back of hand atorvastatin 80 MG tablet 80 mg PO QHS aspirin 81 MG tablet 81 mg PO DAILY finasteride 5 MG tablet 5 mg PO DAILY escitalopram oxalate 10 MG tablet 10 mg PO DAILY cholecalciferol (vitamin D3) [Vitamin D3] 1,000 UNIT tablet 3,000 units PO DAILY Humulin R U-500 (Conc) Kwikpen 500 UNIT/ML insulin pen 110 unit SQ BID nitroglycerin 0.4 MG tablet, sublingual 0.4 mg sublingual Q5M PRN (Reason: Chest Pain) Qty: 30 0RF pantoprazole 40 MG tablet 40 mg PO BID carvedilol 25 MG tablet 25 mg PO BID ranolazine 500 mg Tablet Extended Release 12 Hr 500 mg PO Q12H tamsulosin 0.4 MG capsule 0.4 mg PO QHS glucose 4 gram Tablet,Chewable 16 g PO Q15M PRN (Reason: Hypoglycemia) magnesium oxide 420 mg Tablet 420 mg PO BID ketoconazole 2 % Shampoo 1 applic TOPICAL DAILY albuterol sulfate 2.5 mg /3 mL (0.083 %) Solution For Nebulization 2.5 mg INHALATION Q6H PRN (Reason: Shortness Of Breath Or Wheezing) guaifenesin 100 mg/5 mL Liquid 200 mg PO TID PRN (Reason: Cough) multivitamin with minerals Tablet 1 tab PO DAILY fenofibrate nanocrystallized 48 mg Tablet 48 mg PO DAILY ferrous sulfate 325 mg (65 mg iron) tablet 325 mg PO BID acetaminophen [Tylenol] 325 MG tablet 650 mg PO Q8H PRN PRN (Reason: Pain) Qty: 30 0RF [facility] [facility]errals: [facility] [Primary Care Provider] - 1-2 Weeks Disposition Disposition: Home, Self Care
--- NOTE | 2022-08-27 14:30 | RAD_ITS ---
STUDY: X-RAY CHEST REASON FOR EXAM: Male, 72 years old. Syncope TECHNIQUE: Single AP portable view of the chest. COMPARISON: Comparison is made with prior study August 19, 2022. FINDINGS: EKG electrodes are seen. Stable increased markings in the left hemithorax most likely representing a scarring and pleural thickening. The patient is status post open reduction and internal fixation of multiple left-sided rib fractures. There is been no change. Sternal cerclage wires are present from a prior sternotomy. A left-sided dual-chamber pacemaker is seen. Normal mediastinum and cata. Normal visualized pulmonary arteries. There is atherosclerotic tortuosity of the aortic arch and descending thoracic aorta. Normal visualized thoracic spine. Healed right-sided rib fractures. There is no demonstrated abnormality of the visualized soft tissue structures of the upper abdomen. RAD/Chest 1 View (Portable) IMPRESSION: Stable examination. Electronically Signed: Mick García MD at 14:51 EDT ,
[2022-08-27 14:37] LABS: Absolute Lymphocyte Count 0.65 X10^3/uL (0.83-4.51); Absolute Neutrophil Count 4.1 X10^3/uL (2.0-7.7); Basophil# 0.01 X10^3/uL; Basophil% 0.2 % (0-1); Eosinophil# 0.05 X10^3/uL; Hematocrit 35.1 % (40-54); Lymphocyte # 0.65 X10^3/ul (0.83-4.51); Lymphocyte % 12.8 % (19-41); Mean Corp Hgb Conc 34.2 g/dL (32-36); Mean Corpuscular Hgb 33.7 pg (27.0-32.0); Mean Corpuscular Volume 98.6 fL (80-94); Mean Platelet Vol. 10.4 fl (6.2-12.0); Monocyte# 0.27 X10^3/uL; Monocyte% 5.3 % (0-10); NRBC Flagged by Analyzer 0 % (0-5); Neutrophil # 4.06 X10^3/uL (2.7-7.7); Neutrophil % 80.3 % (47-70); Platelet Count 134 K/mm3 (150-450); RBC Distribution Width CV 13.8 % (11.6-14.6); RBC Distribution Width SD 49.5 fl (35.1-43.9); Red Blood Count 3.56 M/mm3 (4.6-6.2); White Blood Count 5.1 K/mm3 (4.4-11.0)
[2022-08-27 14:38] LABS: D-Dimer Quantitative (DVT/PE) 0.37 FEU/ug/m (0.27-0.49)
[2022-08-27 14:39] VITALS: BP 150/65; PULSE 60; RESP 19; O2SAT 92
[2022-08-27] MEDS: fentaNYL 100 MCG/2 ML Ampul 25 MCG IV (14:41)
[2022-08-27 14:46] LABS: Anion Gap 3 (5-15); BUN 18 mg/dL (7-18); BUN/Creat Ratio 14.9 RATIO (10-20); Calcium,Total 8.4 mg/dL (8.5-10.1); Chloride 103 mmol/L (98-107); Creatinine, Serum 1.21 mg/dL (0.70-1.30); EST Glomerular Filtration Rate 63 mL/min (>60); Est Glom Filt Rate - Afr Amer 76 mL/min (>60); Estimated Creatinine Clearance 56.98 ml/min; Glucose 276 mg/dL (74-106); Potassium 3.9 mmol/L (3.5-5.1); Sodium Level 138 mmol/L (136-145); Troponin-I HS 19 pg/mL (3.0-78.0)
--- NOTE | 2022-08-27 14:57 | ED.RN ---
INTERROGATED PACEMAKER WAITING ON FAX FROM [facility].
[2022-08-27 15:08] VITALS: RESP 18; RESP 22; O2SAT 82; O2SAT 95
--- NOTE | 2022-08-27 15:33 | CHAPLAIN ---
Type of Pastoral Visit ___ Initial Visit ___ Follow-up Visit ___ On-call Visit ___ General Patient Visit ___ Spiritual Assessment ___ Family Conference ___ Bereavement ___ Rapid Response ___ Code Blue ___ Other (describe below) Pastoral Care Referral From ___ Patient ___ Family ___ Nurse ___ Physician ___ Power Truck Driver ___ Animal Services Officer ___ Other (describe below) Sacrament/Intervention ___ Active listening ___ Anointing ___ Jehovah'S Witness ___ Bereavement ___ Communion ___ Liilane exploration ___ ___ Life review ___ Prayer ___ Reconciliation ___ Sacrament of Sick ___ Supportive presence ___ Wedding ___ Other (describe below) Pastoral Comments was in ED when a rapid response was called for this patient who was in the building when episode occurred; went to see if support needed; pt is being evaluated by medical team, spouse is in room; offer of support to spouse is given; presence given until appropriate to leave room
[2022-08-27 16:31] VITALS: BP 159/73; PULSE 61; RESP 22; O2SAT 96
[2022-08-27] MEDS: Ketorolac 15 MG/ML Vial IV (16:32)
[2022-08-27 16:44] LABS: Troponin-I HS 18 pg/mL (3.0-78.0)
== END 2022-08-27 18:02 | disposition home or self-care (01) ==
PROVIDERS: Emergency Provider Emergency Medicine; Visit Provider Emergency Medicine
DX: R55 Syncope and collapse (principal); J44.9 Chronic obstructive pulmonary disease, unspecified; I11.0 Hypertensive heart disease with heart failure; I50.9 Heart failure, unspecified; E11.9 Type 2 diabetes mellitus without complications; Z79.4 Long term (current) use of insulin; Z87.891 Personal history of nicotine dependence; I25.10 Atherosclerotic heart disease of native coronary artery without angina pectoris; E78.5 Hyperlipidemia, unspecified; Z95.0 Presence of cardiac pacemaker; I25.2 Old myocardial infarction; Z99.81 Dependence on supplemental oxygen; Z79.82 Long term (current) use of aspirin; Z79.899 Other long term (current) drug therapy; Z79.02 Long term (current) use of antithrombotics/antiplatelets; Z90.49 Acquired absence of other specified parts of digestive tract; Z95.5 Presence of coronary angioplasty implant and graft; Z96.652 Presence of left artificial knee joint
CPT/HCPCS: 71045; 80048; 84484; 85025; 85379; 93005; 99284; A4216

== ENCOUNTER → 2022-08-27 | Outpatient (CLI) | payer OTHER, SELFPAY | END | disposition home or self-care (01) | LOC: PSN 12:49 | PROVIDERS: Referring Provider Internal Medicine Critical Care Medicine; Visit Provider Internal Medicine Critical Care Medicine | DX: J44.9 Chronic obstructive pulmonary disease, unspecified (principal) ==

== ENCOUNTER 2022-09-07 18:08 | Emergency (ER) | payer OTHER, SELFPAY ==
[2022-09-07 18:12] VITALS: BP 143/80; PULSE 60; RESP 20; TEMP 36.2; O2SAT 99
--- NOTE | 2022-09-07 18:15 | EKG12_ITS ---
Test Reason : CHEST PAIN Blood Pressure : / mmHG Vent. Rate : 060 BPM Atrial Rate : 060 BPM P-R Int : 196 ms QRS Dur : 198 ms QT Int : 516 ms P-R-T Axes : 000 -64 115 degrees QTc Int : 516 ms AV dual-paced rhythm Abnormal ECG Confirmed by PADILLA GUALLPA, CALI ([id number]), newspaper copy editor NADINE FERRER ([id number]) on 09/10/2022 9:06:13 AM Referred By: Confirmed By:CALI CAUSEY MD
[2022-09-07 18:22] VITALS: BP 158/65; PULSE 60; RESP 26
[2022-09-07 18:29] VITALS: O2SAT 99
--- NOTE | 2022-09-07 18:30 | ED.VIS.CHEST ---
HPI History of Present Illness Chief Complaint: Chest Pain Informant: patient Onset/Context/Timing Onset: Days Activity at onset: gradual Timing: Continuous Quality: Positive for Dull Location: Right Chest and Left Chest Current Severity: Mild Maximum Severity: Mild Worsened By: Nothing Relieved By: Nothing Associated Symptoms: Negative for Nausea, Vomiting, Diaphoresis, Cough, Fever, Lightheadedness, Acid Reflux or Palpitations Narrative Narrative: 72-year-old male past medical history of CAD, CABG, stent, pacemaker. COPD and diabetic. On Plavix and aspirin. Patient states he has had chest pain going across his chest for the last 4 days. States has been constant. He has had cardiac chest pain multiple times in the past. He said this feels a little different. Does not go into his back. Not pleuritic. No history of DVT or PE. No recent hospitalization, surgery or immobilization. No leg pain or swelling. No hemoptysis. Nothing particular makes the pain better or worse. He states he has been here before for this similar pain and morphine normally takes away or improves it. Prior Similar Symptoms: Yes Recent Illness/Hospitalization: No CVD Risk Factors: Positive for Hypertension and Diabetes PE Risk Factors: Negative for Recent Travel/Surgery, Recent Immobilization, Prior DVT or PE, Cancer or OCP + Smoking + >/=35 TAD Risk Factors: Negative for Marfan's Syndrome [facility] Medical History Abnormal EKG Anemia Atherosclerotic heart disease mary[place] coronary artery w/angina pectoris BiPAP (biphasic positive airway pressure) dependence CAD (coronary artery disease) Chest pain Chronic hyperglycemia Chronic respiratory failure Congestive heart failure (CHF) Conversion reaction COPD (chronic obstructive pulmonary disease) Diabetes DM type 2 (diabetes mellitus, type 2) Dysarthria Essential (primary) hypertension Former smoker Hemiparesis, left History of fractured rib History of TIAs Hyperlipidemia Myocardial infarct Obesity On home oxygen therapy EKATERINA (obstructive sleep apnea) Pacemaker Pacemaker battery depletion Pulmonary embolism Sick sinus syndrome Stroke/cerebrovascular accident Wears hearing aid in both ears Home Medications aspirin 81 mg tablet,delayed release 81 mg PO DAILY HEART HEALTH 06/11/18 [History Last Taken 04/14/22] atorvastatin 80 mg tablet 80 mg PO QHS cholesterol 06/11/18 [History Last Taken 04/14/22] cholecalciferol (vitamin D3) 25 mcg (1,000 unit) tablet (Vitamin D3) 3,000 units PO DAILY supplement 06/11/18 [History Last Taken 04/14/22] escitalopram oxalate 10 mg tablet 10 mg PO DAILY depression 06/11/18 [History Last Taken 04/14/22] finasteride 5 mg tablet 5 mg PO DAILY prostate 06/11/18 [History Last Taken 04/14/22] insulin regular hum U-500 conc 500 unit/mL(3 mL) subcut pen (Humulin R U-500 (Conc) Insulin Kwikpen) 110 unit SQ BID diabetes 06/11/18 [History Last Taken 12/12/21] nitroglycerin 0.4 mg sublingual tablet 0.4 mg sublingual Q5M PRN Chest Pain #30 TABLETS 07/22/18 [Rx Last Taken 01/17/20] pantoprazole 40 mg tablet,delayed release 40 mg PO BID GERD 05/18/20 [History Last Taken 04/14/22] carvedilol 25 mg tablet 25 mg PO BID blood pressure 06/22/20 [History Last Taken 04/14/22] ranolazine 500 mg tablet,extended release,12 hr 500 mg PO Q12H chest pain 06/22/20 [History Last Taken 04/14/22] tamsulosin 0.4 mg capsule 0.4 mg PO QHS PROSTATE 08/10/20 [History Last Taken 04/14/22] clopidogrel 75 mg tablet (Plavix) 75 mg PO DAILY blood thinner 01/07/21 [History Last Taken 04/14/22] glucose 4 gram chewable tablet 16 g PO Q15M PRN Hypoglycemia 08/17/21 [History Last Taken Unknown] albuterol sulfate 2.5 mg/3 mL (0.083 %) solution for nebulization 2.5 mg inhalation Q6H PRN Shortness Of Breath Or Wheezing 12/12/21 [History Last Taken 12/12/21] fenofibrate nanocrystallized 48 mg tablet 48 mg PO DAILY cholesterol 12/12/21 [History Last Taken 04/14/22] ferrous sulfate 325 mg (65 mg iron) tablet 325 mg PO BID SUPPLEMENT 12/12/21 [History Last Taken 04/14/22] guaifenesin 100 mg/5 mL oral liquid 200 mg PO TID PRN Cough 12/12/21 [History Last Taken 1 Week Ago ~12/05/21] ketoconazole 2 % shampoo 1 applic topical DAILY dry scalp 12/12/21 [History Last Taken 04/14/22] magnesium oxide 420 mg tablet 420 mg PO BID SUPPLEMENT 12/12/21 [History Last Taken 04/14/22] multivitamin with minerals 1 tab PO DAILY SUPPLEMENT 12/12/21 [History Last Taken 04/14/22] acetaminophen 325 mg tablet (Tylenol) 650 mg (2 x 325 mg) PO Q8H PRN PRN Pain #30 tabs 04/17/22 [Rx Last Taken 12/11/21] diclofenac sodium 1 % gel topical kit 2 g topical BID 08/06/22 [History Last Taken Unknown] furosemide 40 mg tablet (Lasix) 40 mg PO QAM 08/06/22 [History Last Taken Unknown] Allergy/AdvReac Type Severity Reaction Status Date / Time ezetimibe Allergy Unknown Verified 09/07/22 18:12 Fish Containing Products Allergy Unknown Verified 09/07/22 18:12 glyburide Allergy Unknown Verified 09/07/22 18:12 isosorbide Allergy PT UNSURE Verified 09/07/22 18:12 OF REACTION lisinopril Allergy Unknown Verified 09/07/22 18:12 metformin Allergy Nausea Verified 09/07/22 18:12 metoprolol Allergy Unknown Verified 09/07/22 18:12 simvastatin Allergy Unknown Verified 09/07/22 18:12 gabapentin AdvReac Other Verified 09/07/22 18:12 Family History Father No problems noted. Surgical History H/O coronary artery bypass surgery History of cholecystectomy History of coronary artery stent placement History of knee replacement procedure of left knee History of permanent cardiac pacemaker placement (01/14/21) Social History household members: spouse Smoking Status: Former smoker details: Unknown substance use type: does not use ROS ROS ED ROS Narrative Chest pain. Review of Systems ROS Unobtainable: Denies due to encephalopathy Constitutional Constitutional ED: Denies chills or fever(s) Eyes Eyes: Reports none ENT ENT ED: Denies ear pain Cardiovascular Cardiovascular: Reports chest pain; Denies palpitations or racing heartbeat Respiratory/Chest Respiratory/Chest: Denies cough or dyspnea Gastrointestinal Gastrointestinal: Denies abdominal pain Genitourinary Genitourinary ED: Denies dysuria Musculoskeletal Musculoskeletal: Denies arthralgias Integumentary Denies abscess Neurologic Neurologic: Denies headache(s) Psychiatric Psychiatric: Denies anxiety Endocrine Endocrinology: Denies cold intolerance Hematologic/Lymphatic Hematologic/Lymphatic: Denies easy bleeding Allergic/Immunologic Allergic/Immunologic ED: Denies mouth swelling EXAM Physical Exam Narrative Exam Narrative: 75-year-old male no acute distress. Vital signs stable afebrile. at bedside. Pulse ox 9 9% on 4 L. HEENT unremarkable. Lungs clear. Heart regular rhythm rate about 60 no murmur. Chest wall nontender. Abdomen soft nontender. Moving all 4 extremities. Calves are nontender without edema or cords. Equal symmetrical radial pulses. Neurologically is awake and alert. No focal motor deficits. Const Vital Signs: 09/07/22 18:12 09/07/22 18:22 09/07/22 18:28 Temperature 97.2 F L Temperature Source Temporal Pulse Rate 60 60 Respiratory Rate 20 H 26 H Respiratory Effort Normal Non-Labored Blood Pressure 143/80 H 158/65 H Blood Pressure Mean 101 96 Pulse Ox 99 Oxygen Delivery Method Nasal Cannula Oxygen Flow Rate (L/min) 3 09/07/22 18:29 Temperature Temperature Source Pulse Rate Respiratory Rate Respiratory Effort Blood Pressure Blood Pressure Mean Pulse Ox 99 Oxygen Delivery Method Nasal Cannula Oxygen Flow Rate (L/min) 4 Positive well nourished and well developed; Negative for cachectic, contractures or unkempt General Appearance ED: well developed and NAD; Negative for unkempt, cachectic, contractures or pallor Nutritional Appearance: Negative for cachectic HEENT Reports moist mucous membranes normocephalic and atraumatic; Negative for trauma or tenderness Eyes PERRL and EOMs intact bilaterally General Eye ED: Negative for pale conjunctiva or scleral icterus Neck no lymphadenopathy, supple and no JVD General: Negative for tenderness Chest Wall inspection of chest normal and palpation of chest normal Chest: Negative for tenderness Resp normal respiratory effort and clear to auscultation bilaterally Effort and Inspection: Negative for respiratory distress Auscultation: Negative for rales, rhonchi or wheezes Cardio regular rate, regular rhythm, S1 normal heart sound, S2 normal heart sound and no murmurs Peripheral Pulses: pulses 2+ throughout GI soft to palpation, non-tender, non-distended and no masses Back/Spine no CVA tenderness and no thoracic nor lumbar tenderness General Back: Negative for CVA tenderness Cervical Spine: Negative for cervical spine tenderness Extremity normal to inspection General Extremety ED: Negative for edema or tenderness General Extremity: Negative for edema Neuro oriented x3 and CN's II-XII intact bilaterally Sensorium / Orientation: awake, alert, oriented to person, oriented to place and oriented to time; Negative for confused, lethargic or stuporous Motor Exam: strength 5/5 throughout Psych mental status grossly normal Appearance: Negative for unkempt Attitude: No agitated Mood & Affect: Negative for depressed, anxious or tearful Skin no rashes or lesions noted and no wounds General Skin Exam: Negative for jaundice or pallor Rashes: No rashes noted Trauma: Negative for abrasion or laceration Heart Score History: Slightly/Non-Suspicious ECG: Normal Age: >/= 65 years Risk Factors: >/= 3 Risk Factors or History of CAD Troponin: </= Normal Limit Score: 4 MDM MDM MDM Narrative Medical decision making narrative: 72-year-old male with known cardiac disease with atypical nonexertional chest pain. He has been seen multiple times for chest pain that is being cardiac and other times not been cardiac. He will be treated with morphine for pain and Zofran. Undergo cardiac work-up. If it is negative uncomfortable with him being discharged home. He said the pain constantly for 4 days I think he only needs 1 troponin. Repeat exam at 7:06 PM patient doing well. We discussed all his test results. He and his are comfortable with him being discharged home. History & Record Review Discussion w/independent historian: Patient and Family Lab Data Attestation: I reviewed the patient's lab results. Lab results narrative: CBC shows a white count of 5. H&H of 12.2 and 35 consistent with his baseline anemia. Platelets of 144,000. Chemistries show a gap of 4 normal BUN and creatinine of 1.1. Glucose 153. Troponin is only 25. Chest x-ray chronic changes. No acute process. Prior sternotomy. Prior multiple rib fractures repaired. On the left. Labs are consistent with prior labs. Labs: Laboratory Results - last 24 hr 09/07/22 18:25 WBC 5.3 RBC 3.68 L Hgb 12.2 L Hct 35.5 L MCV 96.5 H MCH 33.2 H MCHC 34.4 RDW Std Deviation 47.2 H RDW Coeff of Cinda 13.5 Plt Count 144 L MPV 10.3 Immature Gran % (Auto) 0.200 Neut % (Auto) 73.9 H Lymph % (Auto) 16.7 L [place] % (Auto) 7.3 Eos % (Auto) 1.7 Baso % (Auto) 0.2 Absolute Neuts (auto) 3.9 Absolute Lymphs (auto) 0.89 Nucleated RBC % 0 Sodium 141 Potassium 3.8 Chloride 106 Carbon Dioxide 31.0 Anion Gap 4 L BUN 17 Creatinine 1.18 Est GFR (MDRD) Af Amer 78 Est GFR (MDRD) Non-Af 65 BUN/Creatinine Ratio 14.4 Glucose 153 H Calcium 8.2 L Troponin I High Sens 25 Radiography Chest X-Ray - ED: 1 View, Read by ED Physician, Normal, Heart, Lungs, Mediastinum, Bony Structures, No Acute Disease and Chronic Changes Diagnostic Testing: Clinical Impression(s) from Imaging Studies Chest X-Ray 09/07/22 18:37 IMPRESSION: Bilateral pneumonia. Electronically Signed: Harjit Perry MD at 18:54 EDT Reading Location ID and State: [facility] / [place] , Service support , Chest x-ray, portable, single view shows a prior sternotomy. Left-sided pacemaker. 5 ribs on the left with prior cardiothoracic repair with hardware. No acute abnormality. Rhythm Strip Rhythm Strip: Paced Rate: 60 Ectopy: None EKG Initial EKG: Attestation: I personally reviewed and interpreted this EKG as follows: Interpretation: Paced Comments: Paced rhythm at 60. Discharge Plan Triage Chief Complaint: Chest Pain ED Provider: Malcolm Chavez Dx/Rx/DC Orders Clinical Impression: History of coronary artery disease, Hx of CABG, History of diabetes mellitus, Chest pain Instructions: ED Chest Pain, Uncertain Cause Prescriptions: No Action clopidogrel [Plavix] 75 mg tablet 75 mg PO DAILY furosemide [Lasix] 40 mg tablet 40 mg PO QAM diclofenac sodium 1 % kit 2 g topical BID Rx Instructions: apply to single elbow, wrist or hand; for hand includes palm/fingers/back of hand atorvastatin 80 MG tablet 80 mg PO QHS aspirin 81 MG tablet 81 mg PO DAILY finasteride 5 MG tablet 5 mg PO DAILY escitalopram oxalate 10 MG tablet 10 mg PO DAILY cholecalciferol (vitamin D3) [Vitamin D3] 1,000 UNIT tablet 3,000 units PO DAILY Humulin R U-500 (Conc) Kwikpen 500 UNIT/ML insulin pen 110 unit SQ BID nitroglycerin 0.4 MG tablet, sublingual 0.4 mg sublingual Q5M PRN (Reason: Chest Pain) Qty: 30 0RF pantoprazole 40 MG tablet 40 mg PO BID carvedilol 25 MG tablet 25 mg PO BID ranolazine 500 mg Tablet Extended Release 12 Hr 500 mg PO Q12H tamsulosin 0.4 MG capsule 0.4 mg PO QHS glucose 4 gram Tablet,Chewable 16 g PO Q15M PRN (Reason: Hypoglycemia) magnesium oxide 420 mg Tablet 420 mg PO BID ketoconazole 2 % Shampoo 1 applic TOPICAL DAILY albuterol sulfate 2.5 mg /3 mL (0.083 %) Solution For Nebulization 2.5 mg INHALATION Q6H PRN (Reason: Shortness Of Breath Or Wheezing) guaifenesin 100 mg/5 mL Liquid 200 mg PO TID PRN (Reason: Cough) multivitamin with minerals Tablet 1 tab PO DAILY fenofibrate nanocrystallized 48 mg Tablet 48 mg PO DAILY ferrous sulfate 325 mg (65 mg iron) tablet 325 mg PO BID acetaminophen [Tylenol] 325 MG tablet 650 mg PO Q8H PRN PRN (Reason: Pain) Qty: 30 0RF [facility] [place] [facility] [Primary Care Provider] - As Needed Activity Restrictions/Additional Instructions: Your labs, chest x-ray and EKG all look good tonight. No specific cause for your pain. [facility] Return if feeling worse. Disposition Disposition: Home, Self Care
[2022-09-07 18:32] LABS: Absolute Lymphocyte Count 0.89 X10^3/uL (0.83-4.51); Absolute Neutrophil Count 3.9 X10^3/uL (2.0-7.7); Basophil# 0.01 X10^3/uL; Basophil% 0.2 % (0-1); Eosinophil# 0.09 X10^3/uL; Eosinophils% 1.7 % (0-5); Hematocrit 35.5 % (40-54); Hemoglobin 12.2 g/dL (13.0-16.5); Lymphocyte # 0.89 X10^3/ul (0.83-4.51); Lymphocyte % 16.7 % (19-41); Mean Corp Hgb Conc 34.4 g/dL (32-36); Mean Corpuscular Hgb 33.2 pg (27.0-32.0); Mean Corpuscular Volume 96.5 fL (80-94); Mean Platelet Vol. 10.3 fl (6.2-12.0); Monocyte# 0.39 X10^3/uL; Monocyte% 7.3 % (0-10); NRBC Flagged by Analyzer 0 % (0-5); Neutrophil # 3.94 X10^3/uL (2.7-7.7); Neutrophil % 73.9 % (47-70); Platelet Count 144 K/mm3 (150-450); RBC Distribution Width CV 13.5 % (11.6-14.6); RBC Distribution Width SD 47.2 fl (35.1-43.9); Red Blood Count 3.68 M/mm3 (4.6-6.2); White Blood Count 5.3 K/mm3 (4.4-11.0)
[2022-09-07] MEDS: Ondansetron 4 MG/2 ML Vial IV (18:34)
[2022-09-07] MEDS: Aspirin 81 MG TAB.CHEW 324 MG PO (18:34)
[2022-09-07] MEDS: morphine 8 MG/ML Syringe IV (18:35)
--- NOTE | 2022-09-07 18:37 | RAD_ITS ---
STUDY: XR Chest 1 View 09/07/2022 6:34 PM REASON FOR EXAM: Male, 72 years old. CHEST PAIN chest pain COMPARISON: 08/27/2022 TECHNIQUE: XR Chest 1 View FINDINGS: There is no demonstrated pleural abnormality. There is a left sided pacemaker batterypack. There are multiple median sternotomy wires. Left sided rib plate. Bilateral lower lobe infiltrates. Enlarged heart size. Normal mediastinum. Normal cata. Prominent appearing increased interstitial lung markings. Normal visualized pulmonary arteries. There is atherosclerotic calcification of the aortic arch with tortuosity. There are diffuse degenerative changes of the visualized thoracic spine. There is degenerative osteoarthritis of the bilateral shoulders. There are no acute findings of the upper abdomen. RAD/Chest 1 View (Portable) IMPRESSION: Bilateral pneumonia. Electronically Signed: Harjit Perry MD at 18:54 EDT ,
[2022-09-07 18:50] LABS: Anion Gap 4 (5-15); BUN 17 mg/dL (7-18); BUN/Creat Ratio 14.4 RATIO (10-20); Calcium,Total 8.2 mg/dL (8.5-10.1); Chloride 106 mmol/L (98-107); Creatinine, Serum 1.18 mg/dL (0.70-1.30); EST Glomerular Filtration Rate 65 mL/min (>60); Est Glom Filt Rate - Afr Amer 78 mL/min (>60); Glucose 153 mg/dL (74-106); Potassium 3.8 mmol/L (3.5-5.1); Sodium Level 141 mmol/L (136-145); Troponin-I HS (w/2H Reflex) 25 pg/mL (3.0-78.0)
[2022-09-07 19:28] VITALS: BP 130/70; BMI 36.3
[2022-09-07 20:28] LABS: Reflex Troponin-HS? (from REC) Y
== END 2022-09-07 19:30 | disposition home or self-care (01) ==
PROVIDERS: Emergency Provider Emergency Medicine; Visit Provider Emergency Medicine
DX: R07.9 Chest pain, unspecified (principal); J44.0 Chronic obstructive pulmonary disease with (acute) lower respiratory infection; I11.0 Hypertensive heart disease with heart failure; I50.9 Heart failure, unspecified; E11.9 Type 2 diabetes mellitus without complications; Z79.4 Long term (current) use of insulin; Z95.5 Presence of coronary angioplasty implant and graft; I25.10 Atherosclerotic heart disease of native coronary artery without angina pectoris; E78.5 Hyperlipidemia, unspecified; Z87.891 Personal history of nicotine dependence; Z95.0 Presence of cardiac pacemaker; Z79.02 Long term (current) use of antithrombotics/antiplatelets; Z79.82 Long term (current) use of aspirin; Z86.73 Personal history of transient ischemic attack (TIA), and cerebral infarction without residual deficits; Z79.899 Other long term (current) drug therapy; Z90.49 Acquired absence of other specified parts of digestive tract; Z96.652 Presence of left artificial knee joint; Z95.1 Presence of aortocoronary bypass graft
CPT/HCPCS: 71045; 80048; 84484; 85025; 93005; 96374; 96375; 99284; A4216; J2405

== ENCOUNTER 2022-09-10 05:56 | Inpatient (IN) | payer OTHER, SELFPAY ==
[2022-09-10] VITALS (12 sets, daily range): BP systolic 102–162; BP diastolic 55–106; PULSE 60–84; RESP 12–23; TEMP 36.1–36.7; O2SAT 90–97; BMI 37.4; BMI 36.0
--- NOTE | 2022-09-10 06:11 | EDS_ITS ---
HPI History of Present Illness Chief Complaint: Shortness of Breath Detail of Chief Complaint: Shortness of breath and chest pain Informant: patient Narrative Narrative: Patient presents the emergency department complaint shortness of breath and chest pain. Patient is well-known to this department as he has had multiple visits to this emergency department for same. Patient states that since 2 AM he is been more short of breath. Patient states he has not felt well for the last 2 weeks. This morning felt lightheaded like he might pass out. Denies any palpitations or racing heart. Patient states that he always has chest pain. He does have history of coronary artery disease and has a pacemaker. He denies any fever although he had some brown to orange-colored sputum last evening. He is got a slight cough. He has had no fever. [facility] Medical History Abnormal EKG Anemia Atherosclerotic heart disease [place] coronary artery w/angina pectoris BiPAP (biphasic positive airway pressure) dependence CAD (coronary artery disease) Chest pain Chronic hyperglycemia Chronic respiratory failure Congestive heart failure (CHF) Conversion reaction COPD (chronic obstructive pulmonary disease) Diabetes DM type 2 (diabetes mellitus, type 2) Dysarthria Essential (primary) hypertension Former smoker Hemiparesis, left History of fractured rib History of TIAs Hyperlipidemia Myocardial infarct Obesity On home oxygen therapy EKATERINA (obstructive sleep apnea) Pacemaker Pacemaker battery depletion Pulmonary embolism Sick sinus syndrome Stroke/cerebrovascular accident Wears hearing aid in both ears Home Medications aspirin 81 mg tablet,delayed release 81 mg PO DAILY HEART HEALTH 06/11/18 [History Last Taken 04/14/22] atorvastatin 80 mg tablet 80 mg PO QHS cholesterol 06/11/18 [History Last Taken 04/14/22] cholecalciferol (vitamin D3) 25 mcg (1,000 unit) tablet (Vitamin D3) 3,000 units PO DAILY supplement 06/11/18 [History Last Taken 04/14/22] escitalopram oxalate 10 mg tablet 10 mg PO DAILY depression 06/11/18 [History Last Taken 04/14/22] finasteride 5 mg tablet 5 mg PO DAILY prostate 06/11/18 [History Last Taken 04/14/22] insulin regular hum U-500 conc 500 unit/mL(3 mL) subcut pen (Humulin R U-500 (Conc) Insulin Kwikpen) 110 unit SQ BID diabetes 06/11/18 [History Last Taken 12/12/21] nitroglycerin 0.4 mg sublingual tablet 0.4 mg sublingual Q5M PRN Chest Pain #30 TABLETS 07/22/18 [Rx Last Taken 01/17/20] pantoprazole 40 mg tablet,delayed release 40 mg PO BID GERD 05/18/20 [History Last Taken 04/14/22] carvedilol 25 mg tablet 25 mg PO BID blood pressure 06/22/20 [History Last Taken 04/14/22] ranolazine 500 mg tablet,extended release,12 hr 500 mg PO Q12H chest pain 06/22/20 [History Last Taken 04/14/22] tamsulosin 0.4 mg capsule 0.4 mg PO QHS PROSTATE 08/10/20 [History Last Taken 04/14/22] clopidogrel 75 mg tablet (Plavix) 75 mg PO DAILY blood thinner 01/07/21 [History Last Taken 04/14/22] glucose 4 gram chewable tablet 16 g PO Q15M PRN Hypoglycemia 08/17/21 [History Last Taken Unknown] albuterol sulfate 2.5 mg/3 mL (0.083 %) solution for nebulization 2.5 mg inhalation Q6H PRN Shortness Of Breath Or Wheezing 12/12/21 [History Last Taken 12/12/21] fenofibrate nanocrystallized 48 mg tablet 48 mg PO DAILY cholesterol 12/12/21 [History Last Taken 04/14/22] ferrous sulfate 325 mg (65 mg iron) tablet 325 mg PO BID SUPPLEMENT 12/12/21 [History Last Taken 04/14/22] guaifenesin 100 mg/5 mL oral liquid 200 mg PO TID PRN Cough 12/12/21 [History Last Taken 1 Week Ago ~12/05/21] ketoconazole 2 % shampoo 1 applic topical DAILY dry scalp 12/12/21 [History Last Taken 04/14/22] magnesium oxide 420 mg tablet 420 mg PO BID SUPPLEMENT 12/12/21 [History Last Taken 04/14/22] multivitamin with minerals 1 tab PO DAILY SUPPLEMENT 12/12/21 [History Last Taken 04/14/22] acetaminophen 325 mg tablet (Tylenol) 650 mg (2 x 325 mg) PO Q8H PRN PRN Pain #30 tabs 04/17/22 [Rx Last Taken 12/11/21] diclofenac sodium 1 % gel topical kit 2 g topical BID 08/06/22 [History Last Taken Unknown] furosemide 40 mg tablet (Lasix) 40 mg PO QAM 08/06/22 [History Last Taken Unknown] Allergy/AdvReac Type Severity Reaction Status Date / Time ezetimibe Allergy Unknown Verified 09/10/22 06:00 Fish Containing Products Allergy Unknown Verified 09/10/22 06:00 glyburide Allergy Unknown Verified 09/10/22 06:00 isosorbide Allergy PT UNSURE Verified 09/10/22 06:00 OF REACTION lisinopril Allergy Unknown Verified 09/10/22 06:00 metformin Allergy Nausea Verified 09/10/22 06:00 metoprolol Allergy Unknown Verified 09/10/22 06:00 simvastatin Allergy Unknown Verified 09/10/22 06:00 gabapentin AdvReac Other Verified 09/10/22 06:00 Family History Father No problems noted. Surgical History H/O coronary artery bypass surgery History of cholecystectomy History of coronary artery stent placement History of knee replacement procedure of left knee History of permanent cardiac pacemaker placement (01/14/21) Social History household members: spouse Smoking Status: Former smoker details: Unknown substance use type: does not use ROS ROS ED Review of Systems ROS Unobtainable: other Constitutional Constitutional ED: Reports lethargy; Denies chills, fever(s), sweats or weight loss Eyes Eyes: Denies blurry vision, change in vision or diplopia ENT ENT ED: Denies rhinorrhea or sore throat Cardiovascular Cardiovascular: Reports chest pain; Denies orthopnea or racing heartbeat Respiratory/Chest Respiratory/Chest: Reports cough, dyspnea, dyspnea on exertion and sputum; Denies orthopnea Gastrointestinal Gastrointestinal: Denies abdominal pain, diarrhea, nausea or vomiting Genitourinary Genitourinary ED: Denies dysuria, hematuria or urinary frequency Musculoskeletal Musculoskeletal: Denies arthralgias, back pain, myalgias or neck pain Integumentary Denies abscess, Abrasions or rash Neurologic Neurologic: Denies headache(s) or weakness Psychiatric Psychiatric: Denies anxiety, depression or suicidal thoughts Endocrine Endocrinology: Denies polydipsia, polyphagia or polyuria Hematologic/Lymphatic Hematologic/Lymphatic: Denies easy bleeding, easy bruising or lymphadenopathy Allergic/Immunologic Allergic/Immunologic ED: Denies mouth swelling, tongue swelling or urticaria EXAM Physical Exam Const Vital Signs: 09/10/22 05:57 09/10/22 06:01 09/10/22 06:22 Temperature 97.0 F L Temperature Source Temporal Pulse Rate 61 Respiratory Rate 23 H Respiratory Effort Normal Respiratory Depth Normal Respiratory Pattern Normal Blood Pressure 149/106 H Blood Pressure Mean 120 Pulse Ox 92 Oxygen Delivery Method Nasal Cannula Nasal Cannula Nasal Cannula Oxygen Flow Rate (L/min) 2 2 2 09/10/22 06:32 Temperature Temperature Source Pulse Rate 60 Respiratory Rate 18 Respiratory Effort Respiratory Depth Respiratory Pattern Normal Blood Pressure Blood Pressure Mean Pulse Ox Oxygen Delivery Method Oxygen Flow Rate (L/min) Positive well nourished and well developed General Appearance ED: well developed and NAD HEENT Reports TM's clear and moist mucous membranes normocephalic and atraumatic; Negative for trauma or tenderness Tympanic Membrane ED: Yes TM's clear Eyes PERRL and EOMs intact bilaterally General Eye ED: Negative for pale conjunctiva or scleral icterus Neck no lymphadenopathy, supple and no JVD General: Negative for tenderness Chest Wall inspection of chest normal and palpation of chest normal Chest: Negative for tenderness Resp normal respiratory effort and clear to auscultation bilaterally Resp Narrative: Diminished breath sounds bilaterally. Mild tachypnea. No excess or muscle use or retractions. Effort and Inspection: Negative for respiratory distress or pain with movement Auscultation: wheezes and diminished lung sounds; Negative for rhonchi Cardio regular rate, regular rhythm, S1 normal heart sound, S2 normal heart sound and no murmurs Peripheral Pulses: pulses 2+ throughout GI normal to inspection, nondistended, normoactive bowel sounds, soft to palpation, non-tender, non-distended and no masses Back/Spine no CVA tenderness and no thoracic nor lumbar tenderness Extremity normal to inspection General Extremety ED: Negative for edema General Extremity: Negative for edema Neuro oriented x3, CN's II-XII intact bilaterally, no sensory deficits noted and gait normal Sensorium / Orientation: awake, alert, oriented to person, oriented to place and oriented to time Motor Exam: strength 5/5 throughout and strength abnormal Psych mental status grossly normal Skin no rashes or lesions noted and no wounds MDM MDM MDM Narrative Medical decision making narrative: Patient presents with complaint of chest pain and shortness of breath. He is well-known to this department and presents frequently for similar complaints. He does have known history of COPD as well as CHF and coronary artery disease. Patient not anticoagulated. In the differential would be acute coronary syndrome versus PE versus infectious etiology versus COPD exacerbation. IV line established on arrival. EKG obtained showed a AV dual paced rhythm with a rate of 60 bpm. 1 view chest x-ray obtained interpreted by myself as chronic interstitial changes with old plating of left ribs and pacemaker in left upper chest. CBC with differential obtained for normal white count of 5.5 with hemoglobin of 11.7 and platelet count of 122. D-dimer was normal. Troponin and chemistries pending. Care of patient turned over to morning physician awaiting results and final disposition. Patient was given a dose of albuterol and Atrovent and did have some improvement in his breathing with that. Patient was given a dose of prednisone 40 mg p.o. Lab Data Labs: Laboratory Results - last 24 hr 09/10/22 06:20 WBC 5.5 RBC 3.56 L Hgb 11.7 L Hct 35.9 L MCV 100.8 H MCH 32.9 H MCHC 32.6 D RDW Std Deviation 49.6 H RDW Coeff of Cinda 13.5 Plt Count 122 L MPV 10.6 Immature Gran % (Auto) 0.400 Neut % (Auto) 78.2 H Lymph % (Auto) 12.8 L [place] % (Auto) 6.2 Eos % (Auto) 2.2 Baso % (Auto) 0.2 Absolute Neuts (auto) 4.3 Absolute Lymphs (auto) 0.70 L Nucleated RBC % 0 D-Dimer Quant (PE/DVT) 0.36 Discharge Plan Triage Chief Complaint: Shortness of Breath ED Provider: Jaydon Armstrong Dx/Rx/DC Orders Clinical Impression: Dyspnea, Chest pain Prescriptions: No Action clopidogrel [Plavix] 75 mg tablet 75 mg PO DAILY furosemide [Lasix] 40 mg tablet 40 mg PO QAM diclofenac sodium 1 % kit 2 g topical BID Rx Instructions: apply to single elbow, wrist or hand; for hand includes palm/fingers/back of hand atorvastatin 80 MG tablet 80 mg PO QHS aspirin 81 MG tablet 81 mg PO DAILY finasteride 5 MG tablet 5 mg PO DAILY escitalopram oxalate 10 MG tablet 10 mg PO DAILY cholecalciferol (vitamin D3) [Vitamin D3] 1,000 UNIT tablet 3,000 units PO DAILY Humulin R U-500 (Conc) Kwikpen 500 UNIT/ML insulin pen 110 unit SQ BID nitroglycerin 0.4 MG tablet, sublingual 0.4 mg sublingual Q5M PRN (Reason: Chest Pain) Qty: 30 0RF pantoprazole 40 MG tablet 40 mg PO BID carvedilol 25 MG tablet 25 mg PO BID ranolazine 500 mg Tablet Extended Release 12 Hr 500 mg PO Q12H tamsulosin 0.4 MG capsule 0.4 mg PO QHS glucose 4 gram Tablet,Chewable 16 g PO Q15M PRN (Reason: Hypoglycemia) magnesium oxide 420 mg Tablet 420 mg PO BID ketoconazole 2 % Shampoo 1 applic TOPICAL DAILY albuterol sulfate 2.5 mg /3 mL (0.083 %) Solution For Nebulization 2.5 mg INHALATION Q6H PRN (Reason: Shortness Of Breath Or Wheezing) guaifenesin 100 mg/5 mL Liquid 200 mg PO TID PRN (Reason: Cough) multivitamin with minerals Tablet 1 tab PO DAILY fenofibrate nanocrystallized 48 mg Tablet 48 mg PO DAILY ferrous sulfate 325 mg (65 mg iron) tablet 325 mg PO BID acetaminophen [Tylenol] 325 MG tablet 650 mg PO Q8H PRN PRN (Reason: Pain) Qty: 30 0RF Primary Care Provider: [facility] Referrals: [facility] [Primary Care Provider] -
--- NOTE | 2022-09-10 06:15 | EKG12_ITS ---
Test Reason : SOB Blood Pressure : / mmHG Vent. Rate : 060 BPM Atrial Rate : 060 BPM P-R Int : 196 ms QRS Dur : 198 ms QT Int : 528 ms P-R-T Axes : 000 -54 124 degrees QTc Int : 528 ms AV dual-paced rhythm Abnormal ECG Confirmed by PADILLA GUALLPA, CALI ([id number]), design editor NADINE FERRER ([id number]) on 09/11/2022 1:26:33 PM Referred By: Confirmed By:CALI CAUSEY MD
[2022-09-10] MEDS: Morphine 4 MG/ML Syringe IV (06:27)
[2022-09-10] MEDS: Ondansetron 4 MG/2 ML Vial IV (06:27)
[2022-09-10] MEDS: Aspirin 81 MG TAB.CHEW 324 MG PO (06:27)
[2022-09-10] MEDS: Ipratropium/Albuterol Sulfate 3 ML AMPUL.NEB INHALATION (06:27)
[2022-09-10 06:31] LABS: Absolute Neutrophil Count 4.3 X10^3/uL (2.0-7.7); Basophil# 0.01 X10^3/uL; Basophil% 0.2 % (0-1); Eosinophil# 0.12 X10^3/uL; Eosinophils% 2.2 % (0-5); Hematocrit 35.9 % (40-54); Hemoglobin 11.7 g/dL (13.0-16.5); Lymphocyte % 12.8 % (19-41); Mean Corp Hgb Conc 32.6 g/dL (32-36); Mean Corpuscular Hgb 32.9 pg (27.0-32.0); Mean Corpuscular Volume 100.8 fL (80-94); Mean Platelet Vol. 10.6 fl (6.2-12.0); Monocyte# 0.34 X10^3/uL; Monocyte% 6.2 % (0-10); NRBC Flagged by Analyzer 0 % (0-5); Neutrophil # 4.27 X10^3/uL (2.7-7.7); Neutrophil % 78.2 % (47-70); Platelet Count 122 K/mm3 (150-450); RBC Distribution Width CV 13.5 % (11.6-14.6); RBC Distribution Width SD 49.6 fl (35.1-43.9); Red Blood Count 3.56 M/mm3 (4.6-6.2); White Blood Count 5.5 K/mm3 (4.4-11.0)
--- NOTE | 2022-09-10 06:45 | RAD_ITS ---
STUDY: X-RAY CHEST REASON FOR EXAM: Male, 72 years old patient with chest pain. TECHNIQUE: Single AP portable view of the chest. COMPARISON: September 07, 2022. FINDINGS: Cardiac monitoring leads are present. Patient has left-sided cardiac pacemaker. Patient has had a sternotomy. Lungs are expanded. There are prominent bronchovascular markings in both lungs. There is no demonstrated pleural abnormality. There is moderate cardiac enlargement. Normal mediastinum and cata. There is prominence of the pulmonary hilar arteries with peripheral pulmonary vascular congestion. There is atherosclerotic calcification of the aortic arch with tortuosity. There is demineralization of the osseous structures. Patient has had open reduction internal fixation of multiple left-sided rib fractures with numerous plates and screws. There is no demonstrated abnormality of the visualized soft tissue structures of the upper abdomen. RAD/Chest 1 View (Portable) IMPRESSION: Cardiomegaly and pulmonary edema. Electronically Signed: Yara Vasquez MD at 7:05 EDT ,
[2022-09-10 06:49] LABS: D-Dimer Quantitative (DVT/PE) 0.36 FEU/ug/m (0.27-0.49)
[2022-09-10 07:11] LABS: Anion Gap 4 (5-15); BUN 21 mg/dL (7-18); BUN/Creat Ratio 20.4 RATIO (10-20); Calcium,Total 8.3 mg/dL (8.5-10.1); Chloride 104 mmol/L (98-107); Creatinine, Serum 1.03 mg/dL (0.70-1.30); EST Glomerular Filtration Rate 75 mL/min (>60); Est Glom Filt Rate - Afr Amer 91 mL/min (>60); Estimated Creatinine Clearance 66.94 ml/min; Glucose 274 mg/dL (74-106); Sodium Level 141 mmol/L (136-145); Troponin-I HS (w/2H Reflex) 27 pg/mL (3.0-78.0)
[2022-09-10 07:29] LABS: BNP,B-Type NATRIURETIC PEPTIDE 136.4 pg/mL (0-100)
[2022-09-10] MEDS: predniSONE 20 MG Tablet 40 MG PO (07:33)
[2022-09-10] MEDS: Lidocaine 5% Patch 1 PATCH TOPICAL (08:21)
[2022-09-10] MEDS: Acetaminophen 325 MG Tablet 650 MG PO ×2 (08:21→15:37)
[2022-09-10] MEDS: Furosemide 40 MG/4 ML Vial IV (08:21)
[2022-09-10 08:28] LABS: Reflex Troponin-HS? (from REC) Y
--- NOTE | 2022-09-10 08:55 | HP.PCM.HOS_ITS ---
HPI - General General Date of Admission: 09/10/22 Date of Service: 09/10/22 Chief Complaint: shortness of breath HPI Narrative GIOVANNY LEONARDO, is a 72 M with a PMH as outlined who presents via the ED On 09/10/2022 with a complaint of shortness of breath and chest pain. HE has multiple admissions for the same complaints. HE said his symptoms started in the early hours of the day of admission, though he hadnt felt very well for 2 weeks prior to admission. He denied any dizziness or lightheadedness, and had a cough which was productive of sputum. He was quite weak in the ED and desaturated in the ED to the 80s. [facility] and per his , switched to a blood pressure medication that also caused diuresis. He had no fever, chills, nausea, vomiting or any other symptoms. Review of systems was otherwise negative. Vitals in the ED were temp of 97F, BP of 149/106, TN of 61 and RR of 23. HE was saturatiing at 92% on 3L of oxygen. CBC showed Hb of 11.7, wbc of 5.5 and platelets of 122. Chemistry showed sodium of 141, potassium of 4, bicarb of 33 and Cr of 1.03. Initial troponin was 24 and BNP was 136.4. CXR showed cardiomegaly and pulmonary edema. He is being admitted to be managed for acute exacerbation of HFpEF [facility] Medical History Abnormal EKG Anemia Atherosclerotic heart disease [place] coronary artery w/angina pectoris BiPAP (biphasic positive airway pressure) dependence CAD (coronary artery disease) Chest pain Chronic hyperglycemia Chronic respiratory failure Congestive heart failure (CHF) Conversion reaction COPD (chronic obstructive pulmonary disease) Diabetes DM type 2 (diabetes mellitus, type 2) Dysarthria Essential (primary) hypertension Former smoker Hemiparesis, left History of fractured rib History of TIAs Hyperlipidemia Myocardial infarct Obesity On home oxygen therapy EKATERINA (obstructive sleep apnea) Pacemaker Pacemaker battery depletion Pulmonary embolism Sick sinus syndrome Stroke/cerebrovascular accident Wears hearing aid in both ears Home Medications aspirin 81 mg tablet,delayed release 81 mg PO DAILY HEART HEALTH 06/11/18 [History Last Taken 04/14/22] atorvastatin 80 mg tablet 80 mg PO QHS cholesterol 06/11/18 [History Last Taken 04/14/22] cholecalciferol (vitamin D3) 25 mcg (1,000 unit) tablet (Vitamin D3) 3,000 units PO DAILY supplement 06/11/18 [History Last Taken 04/14/22] escitalopram oxalate 10 mg tablet 10 mg PO DAILY depression 06/11/18 [History Last Taken 04/14/22] finasteride 5 mg tablet 5 mg PO DAILY prostate 06/11/18 [History Last Taken 04/14/22] insulin regular hum U-500 conc 500 unit/mL(3 mL) subcut pen (Humulin R U-500 (Conc) Insulin Kwikpen) 110 unit SQ BID diabetes 06/11/18 [History Last Taken 12/12/21] nitroglycerin 0.4 mg sublingual tablet 0.4 mg sublingual Q5M PRN Chest Pain #30 TABLETS 07/22/18 [Rx Last Taken 01/17/20] pantoprazole 40 mg tablet,delayed release 40 mg PO BID GERD 05/18/20 [History Last Taken 04/14/22] carvedilol 25 mg tablet 25 mg PO BID blood pressure 06/22/20 [History Last Taken 04/14/22] ranolazine 500 mg tablet,extended release,12 hr 500 mg PO Q12H chest pain 06/22/20 [History Last Taken 04/14/22] tamsulosin 0.4 mg capsule 0.4 mg PO QHS PROSTATE 08/10/20 [History Last Taken 04/14/22] clopidogrel 75 mg tablet (Plavix) 75 mg PO DAILY blood thinner 01/07/21 [History Last Taken 04/14/22] glucose 4 gram chewable tablet 16 g PO Q15M PRN Hypoglycemia 08/17/21 [History Last Taken Unknown] albuterol sulfate 2.5 mg/3 mL (0.083 %) solution for nebulization 2.5 mg inhalation Q6H PRN Shortness Of Breath Or Wheezing 12/12/21 [History Last Taken 12/12/21] fenofibrate nanocrystallized 48 mg tablet 48 mg PO DAILY cholesterol 12/12/21 [History Last Taken 04/14/22] ferrous sulfate 325 mg (65 mg iron) tablet 325 mg PO BID SUPPLEMENT 12/12/21 [History Last Taken 04/14/22] guaifenesin 100 mg/5 mL oral liquid 200 mg PO TID PRN Cough 12/12/21 [History Last Taken 1 Week Ago ~12/05/21] ketoconazole 2 % shampoo 1 applic topical DAILY dry scalp 12/12/21 [History Last Taken 04/14/22] magnesium oxide 420 mg tablet 420 mg PO BID SUPPLEMENT 12/12/21 [History Last Taken 04/14/22] multivitamin with minerals 1 tab PO DAILY SUPPLEMENT 12/12/21 [History Last Taken 04/14/22] acetaminophen 325 mg tablet (Tylenol) 650 mg (2 x 325 mg) PO Q8H PRN PRN Pain #30 tabs 04/17/22 [Rx Last Taken 12/11/21] diclofenac sodium 1 % gel topical kit 2 g topical BID 08/06/22 [History Last Taken Unknown] furosemide 40 mg tablet (Lasix) 40 mg PO QAM 08/06/22 [History Last Taken Un known] Allergy/AdvReac Type Severity Reaction Status Date / Time ezetimibe Allergy Unknown Verified 09/10/22 06:00 Fish Containing Products Allergy Unknown Verified 09/10/22 06:00 glyburide Allergy Unknown Verified 09/10/22 06:00 isosorbide Allergy PT UNSURE Verified 09/10/22 06:00 OF REACTION lisinopril Allergy Unknown Verified 09/10/22 06:00 metformin Allergy Nausea Verified 09/10/22 06:00 metoprolol Allergy Unknown Verified 09/10/22 06:00 simvastatin Allergy Unknown Verified 09/10/22 06:00 gabapentin AdvReac Other Verified 09/10/22 06:00 Family History Father No problems noted. Surgical History H/O coronary artery bypass surgery History of cholecystectomy History of coronary artery stent placement History of knee replacement procedure of left knee History of permanent cardiac pacemaker placement (01/14/21) Social History household members: spouse Smoking Status: Former smoker details: Unknown substance use type: does not use ROS Constitutional Constitutional: Reports change in weight, fatigue, malaise and weakness; Denies anorexia, chills or fever(s) Eyes Eyes: Denies change in vision Cardiovascular Cardiovascular: Reports chest pain, dyspnea on exertion, edema, orthopnea and paroxysmal nocturnal dyspnea; Denies lightheadedness, palpitations, rapid heart rate or syncope Respiratory/Chest Respiratory/Chest: Reports cough, dyspnea, productive cough, shortness of breath at rest and shortness of breath with exertion; Denies excessive phlegm p roduction or wheezing Gastrointestinal Gastrointestinal: Denies abdominal pain, constipation, diarrhea, nausea or vomiting Genitourinary Genitourinary: Denies burning urination, dysuria, hematuria or nocturia Musculoskeletal Musculoskeletal: Denies arthralgias or back pain Neurologic Neurologic: Denies confusion, dizziness, focal weakness, headache(s) or seizures Psychiatric Psychiatric: Denies anxiety or depression Vital Signs Vital Signs Vital Signs: 09/10/22 05:57 09/10/22 06:01 09/10/22 06:22 Temperature 97.0 F L Temperature Source Temporal Pulse Rate 61 Respiratory Rate 23 H Respiratory Effort Normal Respiratory Depth Normal Respiratory Pattern Normal Blood Pressure 149/106 H Blood Pressure Mean 120 Pulse Ox 92 Oxygen Delivery Method Nasal Cannula Nasal Cannula Nasal Cannula Oxygen Flow Rate (L/min) 2 2 2 09/10/22 06:32 Temperature Temperature Source Pulse Rate 60 Respiratory Rate 18 Respiratory Effort Respiratory Depth Respiratory Pattern Normal Blood Pressure Blood Pressure Mean Pulse Ox Oxygen Delivery Method Oxygen Flow Rate (L/min) Weight Weight: 261 lb 0.437 oz Body Mass Index (BMI) 37.4 Physical Exam HEENT normocephalic, head/scalp atraumatic, hearing grossly normal bilaterally and moist oral mucous membranes Mouth: oral and palatal mucosa normal Eyes PERRL, EOMs intact bilaterally and conjunctivae normal Neck no lymphadenopathy and supple Resp Resp Narrative: mildly diminished breath sounds bibasally, no wheezes or crackles. on 2L of oxygen by nasal canula. Cardio regular rate, regular rhythm, S1 normal heart sound, S2 normal heart sound and no murmurs GI normal to inspection, nondistended, normoactive bowel sounds, soft to palpation, non-tender and non-distended Extremity normal to inspection and full ROM Extremity Narrative: +1 bipedal pitting edema Neuro oriented x3, CN's II-XII intact bilaterally, moves all extremities and no focal motor deficits Sensorium / Orientation: awake and alert Motor Exam: strength 5/5 throughout Psych affect normal Results Lab / Micro Data 09/10/22 06:20 09/10/22 06:20 Labs: Laboratory Results - last 24 hr 09/10/22 06:20: WBC 5.5, RBC 3.56 L, Hgb 11.7 L, Hct 35.9 L, MCV 100.8 H, MCH 32.9 H, MCHC 32.6 D, RDW Std Deviation 49.6 H, RDW Coeff of Cinda 13.5, Plt Count 122 L, MPV 10.6, Immature Gran % (Auto) 0.400, Neut % (Auto) 78.2 H, Lymph % (Auto) 12.8 L, [place] % (Auto) 6.2, Eos % (Auto) 2.2, Baso % (Auto) 0.2, Absolute Neuts (auto) 4.3, Absolute Lymphs (auto) 0.70 L, Nucleated RBC % 0, D-Dimer Quant (PE/DVT) 0.36, Sodium 141, Potassium 4.0, Chloride 104, Carbon Dioxide 33.0 H, Anion Gap 4 L, BUN 21 H, Creatinine 1.03, Estim Creat Clear Calc 66.94, Est GFR (MDRD) Af Amer 91, Est GFR (MDRD) Non-Af 75, BUN/Creatinine Ratio 20.4 H , Glucose 274 H, Calcium 8.3 L, Troponin I High Sens 27, B-Natriuretic Peptide 136.4 H Radiology Impression Chest X-Ray 09/10/22 06:45 IMPRESSION: Cardiomegaly and pulmonary edema. Electronically Signed: Yara Vasquez MD at 7:05 EDT Reading Location ID and State: [address] [place] [address] , Service support , Assessment & Plan Assessment/Plan (1) Chest pain: (2) Dyspnea: (3) Heart failure: PLAN: Plan #Acute exacerbation of HFpEF * [facility]. Per ED doctor, said he had gained some weight over the past few days, and had progressively gotten short of breath * admit to PCU * BNP is 134; he is obese * CXR showed cardiomegaly and pulmonary edema * diurese with IV lasix 40mg bid * monitor intake and output * fluid restriction to 1500 cc daily. * breathing treatment with bronchodilators * titrate oxyten to maiintain sats >90% * #Chronic hypoxic respiratory failure due to COPD:L on 3L of oxygen at home. Breathing treatment with bronchodilators #Hypertension: on Coreg. IV hydralazine prn #HYperlipidemia: on statin #CAD * complains of chest pain; this is a chronic complaint for patient who also says he has pain all over. Initial troponin was negative, will cycle. continue aspirin, plavix and high intensity statin as well as coreg and ranexa. * #Hyperlipidemia: on statin #Type 2 iabetes mellitus * on lantus. ISS. Accuchecks ACHS * #History of sick sinus syndrome: on pacemaker #Chronic thrombocytopenia: stable #Anxiety and depression: on escitalopram #EKATERINA: on BIPAP DVT prophylaxis: SCDs Code status: full code Charges/Coding Visit Charges Inpatient E&M: 07041 Init Hosp L3
[2022-09-10 08:58] LABS: Troponin-I HS 26 pg/mL (3.0-78.0)
[2022-09-10] MEDS: oxyCODONE 5 MG Tablet PO ×2 (11:24→15:37)
[2022-09-10] MEDS: Insulin Lispro 100 UNIT/ML INSULN.PEN SC ×2 (11:53→21:14)
[2022-09-10 11:56] LABS: Bedside Glucose 257 mg/dL (74-106)
[2022-09-10 13:07] LABS: Troponin-I HS 24 pg/mL (3.0-78.0)
[2022-09-10] MEDS: Albuterol 2.5 MG/3 ML VIAL.NEB. INHALATION (13:44)
[2022-09-10] MEDS: Insulin U-500 UNITS/ML PEN 115 UNITS SC (17:21)
[2022-09-10] MEDS: Ferrous Sulfate 325 MG Tablet PO (17:23)
[2022-09-10 17:28] LABS: Bedside Glucose 311 mg/dL (74-106)
[2022-09-10] MEDS: guaiFENesin 10 ML UDC (200MG/10ML) PO (21:14)
[2022-09-10] MEDS: Ranolazine 500 MG Tablet PO (21:15)
[2022-09-10] MEDS: Pantoprazole Sodium 40 MG Tablet PO (21:15)
[2022-09-10] MEDS: Magnesium Chloride 64 MG Delay Rel.Tablet 128 MG PO (21:17)
[2022-09-10] MEDS: Tamsulosin HCl 0.4 MG Capsule PO (21:18)
[2022-09-10] MEDS: Atorvastatin Calcium 80 MG Tablet PO (21:18)
[2022-09-10 22:58] LABS: Bedside Glucose 250 mg/dL (74-106)
[2022-09-11] VITALS (12 sets, daily range): BP systolic 117–142; BP diastolic 53–72; PULSE 59–68; RESP 12–27; TEMP 36.4–36.6; O2SAT 94–98
[2022-09-11 05:54] LABS: Absolute Lymphocyte Count 0.63 X10^3/uL (0.83-4.51); Absolute Neutrophil Count 5.4 X10^3/uL (2.0-7.7); Basophil# 0.01 X10^3/uL; Basophil% 0.2 % (0-1); Eosinophil# 0.03 X10^3/uL; Eosinophils% 0.5 % (0-5); Hematocrit 34.1 % (40-54); Hemoglobin 11.2 g/dL (13.0-16.5); Lymphocyte # 0.63 X10^3/ul (0.83-4.51); Lymphocyte % 9.5 % (19-41); Mean Corp Hgb Conc 32.8 g/dL (32-36); Mean Corpuscular Hgb 32.8 pg (27.0-32.0); Mean Platelet Vol. 11.1 fl (6.2-12.0); Monocyte# 0.53 X10^3/uL; NRBC Flagged by Analyzer 0 % (0-5); Neutrophil # 5.41 X10^3/uL (2.7-7.7); Neutrophil % 81.5 % (47-70); Platelet Count 135 K/mm3 (150-450); RBC Distribution Width CV 13.5 % (11.6-14.6); RBC Distribution Width SD 49.1 fl (35.1-43.9); Red Blood Count 3.41 M/mm3 (4.6-6.2); White Blood Count 6.6 K/mm3 (4.4-11.0)
[2022-09-11 06:32] LABS: Anion Gap 3 (5-15); BUN 22 mg/dL (7-18); BUN/Creat Ratio 26.1 RATIO (10-20); Calcium,Total 8.5 mg/dL (8.5-10.1); Chloride 102 mmol/L (98-107); Creatinine, Serum 0.84 mg/dL (0.70-1.30); EST Glomerular Filtration Rate 95 mL/min (>60); Est Glom Filt Rate - Afr Amer 115 mL/min (>60); Estimated Creatinine Clearance 82.08 ml/min; Glucose 144 mg/dL (74-106); Potassium 3.5 mmol/L (3.5-5.1); Sodium Level 138 mmol/L (136-145)
[2022-09-11 07:10] LABS: Bedside Glucose 130 mg/dL (74-106)
[2022-09-11] MEDS: Multivitamins,Ther W-Minerals Tablet 1 TABLET PO (10:41)
[2022-09-11] MEDS: Carvedilol 25 MG Tablet PO ×2 (10:41→21:08)
[2022-09-11] MEDS: Clopidogrel Bisulfate 75 MG Tablet PO (10:41)
[2022-09-11] MEDS: Pantoprazole Sodium 40 MG Tablet PO ×2 (10:41→21:08)
[2022-09-11] MEDS: Escitalopram Oxalate 10 MG Tablet PO (10:41)
[2022-09-11] MEDS: Magnesium Chloride 64 MG Delay Rel.Tablet 128 MG PO ×2 (10:41→21:07)
[2022-09-11] MEDS: Ranolazine 500 MG Tablet PO ×2 (10:41→21:07)
[2022-09-11] MEDS: Finasteride 5 MG Tablet PO (10:41)
[2022-09-11] MEDS: Spironolactone 25 MG Tablet PO (10:41)
[2022-09-11] MEDS: Cholecalciferol (VIT D3) 25 MCG TABLET (1,000 UNITS) 75 MCG PO (10:41)
[2022-09-11] MEDS: Insulin U-500 UNITS/ML PEN 115 UNITS SC ×2 (10:42→21:11)
[2022-09-11] MEDS: Enoxaparin 40 MG/0.4 ML Syringe SC (10:42)
[2022-09-11] MEDS: Ferrous Sulfate 325 MG Tablet PO ×2 (10:42→17:00)
[2022-09-11] MEDS: Aspirin E.C. 81 MG Tablet PO (10:42)
[2022-09-11] MEDS: Albuterol 2.5 MG/3 ML VIAL.NEB. INHALATION ×2 (11:04→19:56)
[2022-09-11] MEDS: guaiFENesin 10 ML UDC (200MG/10ML) PO ×2 (11:55→21:20)
[2022-09-11] MEDS: Insulin Lispro 100 UNIT/ML INSULN.PEN SC ×2 (12:27→21:11)
--- NOTE | 2022-09-11 12:45 | CASEMGMT ---
KRISTI GERONIMO TEACHER LIP READING CM to room to meet with patient and , who is at bedside, for initial transition planning/care coordination assessment. Pt sitting up in chair in room. KRISTI GERONIMO introduced self and role at [facility]. Pt and voice understanding and consent to assessment at this time. Care providers, pharmacy, and demographics verified/updated at this time. PCP: [facility]. Pt has an appt scheduled for Oct 13. plans to call and see if pt can be seen earlier. Specialists: Sees gas meter mechanic @ the [place]. Also sees Dr Schmidt/[facility]. Pt had an eye appt @ the [facility] tomorrow morning, but states she has cx'd it. Preferred Pharmacy: [facility] for [facility] fill. [facility] for long-term fill. Insurance: [place], [facility] A only Prescription Benefit: Through [place] only. Living Arrangements: Pt lives w/ in one-story home w/1 step to enter. Pt is mostly independent w/ADL's-- does assist w/bathing and dressing at times. supportive and manages pt's medications and appts and does all home mgnt tasks. Transportation: drives DME: Has the following DME: cane, walker, W/C, RTS, BSC, electric scooter, shower chair, BIPAP, O2 through [facility] @ 3l/m w/exertion as needed and bleeds in through BIPAP @ [facility], pulse ox, nebulizer, Charlene CGM system, rollator, and does have a medical alert button, but it is currently disconnected. states the portable O2 tank is in the car for pt to go home on @ d/c. and pt state no need for further DME at this time. HHC/SNF: [facility], [facility], and [facility]. [facility] Discussed discharge planning. Pt wishes to return home. He and interested in HHC. [facility] is their 1st choice and they decline wanting list of other options. Rylie, tool planner, made aware. Pt and deny having any other concerns or home-going needs. PLAN: Home w/ and HHC. Wendy ATKINSON RN, CM
[2022-09-11 12:57] LABS: Bedside Glucose 221 mg/dL (74-106)
--- NOTE | 2022-09-11 13:37 | CASEMGMT ---
Discharge Planning Referral sent to [facility] via [facility]. Rylie Godinez, Discharge Planning Asst.
--- NOTE | 2022-09-11 14:02 | PN_ITS ---
Subjective Subjective Patient seen and examined. He said he felt much better today. He says his breathing has improved markedly. He denies any chest pain, palpitations, dizziness, nausea, vomiting or diarrhea. Review of systems is otherwise negative. He has remained hemodynamically stable. Objective Data Objective Data Vital Signs: Vital Signs Temp Pulse Resp BP Pulse Ox O2 Del Method O2 Flow Rate 97.6 F L 67 20 H 132/64 H 94 Nasal Cannula 3 09/11/22 10:30 09/11/22 11:35 09/11/22 11:35 09/11/22 10:30 09/11/22 12:06 09/11/22 10:30 09/11/22 12:06 FiO2 32 09/11/22 00:15 Oxygen Flow Rate (L/min) 3 Oxygen Delivery Method Nasal Cannula Weight: 250 lb 14.177 oz Body Mass Index (BMI) 36.0 Intake & Output: Intake and Output for Last 24 Hours 09/09/22 09/10/22 09/11/22 23:59 23:59 23:59 Intake Total 680 / 680 480 / 480 Output Total 2200 / 2200 425 / 425 Balance -1520 / -1520 55 / 55 Lab / Micro Data 09/11/22 04:33 09/11/22 04:33 Labs: Laboratory Results - last 24 hr 09/10/22 17:05: POC Glucose 311 H 09/10/22 21:12: POC Glucose 250 H 09/11/22 04:33: WBC 6.6, RBC 3.41 L, Hgb 11.2 L, Hct 34.1 L, MCV 100.0 H, MCH 3 2.8 H, MCHC 32.8, RDW Std Deviation 49.1 H, RDW Coeff of Cinda 13.5, Plt Count 135 L, MPV 11.1, Immature Gran % (Auto) 0.300, Neut % (Auto) 81.5 H, Lymph % (Auto) 9.5 L, [place] % (Auto) 8.0, Eos % (Auto) 0.5, Baso % (Auto) 0.2, Absolute Neuts (auto) 5.4, Absolute Lymphs (auto) 0.63 L, Nucleated RBC % 0, Sodium 138, Potassium 3.5, Chloride 102, Carbon Dioxide 33.0 H, Anion Gap 3 L, BUN 22 H, Creatinine 0.84, Estim Creat Clear Calc 82.08, Est GFR (MDRD) Af Amer 115, Est GFR (MDRD) Non-Af 95, BUN/Creatinine Ratio 26.1 H, Glucose 144 H, Calcium 8.5 09/11/22 06:51: POC Glucose 130 H 09/11/22 12:26: POC Glucose 221 H Physical Exam Const alert, oriented x3 and no apparent distress General Appearance: cooperative HEENT normocephalic, head/scalp atraumatic, hearing grossly normal bilaterally and moist oral mucous membranes Eyes PERRL, EOMs intact bilaterally and conjunctivae normal Neck no lymphadenopathy and supple Resp Resp Narrative: mildly diminished breath sounds bibasally, no wheezes or crackles. was on BIPAP at time of review as he wears it at night. Was able to remove it during review and was breathing and saturating well. Cardio regular rate, regular rhythm, S1 normal heart sound, S2 normal heart sound and no murmurs GI normal to inspection, nondistended, normoactive bowel sounds, soft to palpation, non-tender and non-distended Extremity normal to inspection and full ROM Extremity Narrative: +1 bipedal pitting edema Skin General Skin Exam: no breakdown Neuro oriented x3, CN's II-XII intact bilaterally, moves all extremities and no focal motor deficits Sensorium / Orientation: awake and alert Motor Exam: strength 5/5 throughout Psych affect normal Appearance: appropriate Assessment & Plan Assessment/Plan (1) Chest pain: (2) Dyspnea: (3) Heart failure: PLAN: Plan #Acute exacerbation of HFpEF * shortness of breath has improved * continue diuresis with IV lasix 40mg bid * monitor intake and output * fluid restriction to 1500cc daily. * breathing treatment with bronchodilators * titrate oxygen to maintain sats >90% * * #Chronic hypoxic respiratory failure due to COPD:L on 3L of oxygen at home. Breathing treatment with bronchodilators #Hypertension: on Coreg. IV hydralazine prn #HYperlipidemia: on statin #CAD * complains of chest pain; this is a chronic complaint for patient who also says he has pain all over. Initial troponin was negative, will cycle. continue aspirin, plavix and high intensity statin as well as coreg and ranexa. * #Hyperlipidemia: on statin #Type 2 diabetes mellitus * on lantus. ISS. Accuchecks ACHS * #History of sick sinus syndrome: on pacemaker #Chronic thrombocytopenia: stable #Anxiety and depression: on escitalopram #EKATERINA: on BIPAP DVT prophylaxis: SCDs Code status: full code Disposition: anticipate dc home tomorrow if he remains hemodynamically stable. Charges/Coding Visit Charges Inpatient E&M: 16233 Subs Hosp L2
--- NOTE | 2022-09-11 14:20 | CASEMGMT ---
KRISTI GERONIMO NOTE: Participated in PCU interdisciplinary rounds w/pt and in pt's room. They were notified [facility], unable to accept pt and that a list of other [facility] agencies will be provided to review. Wendy ATKINSON RN CM
[2022-09-11] MEDS: Ondansetron 4 MG/2 ML Vial IV (15:02)
[2022-09-11 17:31] LABS: Bedside Glucose 138 mg/dL (74-106)
[2022-09-11] MEDS: Tamsulosin HCl 0.4 MG Capsule PO (21:08)
[2022-09-11] MEDS: Atorvastatin Calcium 80 MG Tablet PO (21:08)
[2022-09-12] VITALS (7 sets, daily range): BP systolic 123–133; BP diastolic 60–85; PULSE 60–63; RESP 12–20; TEMP 36.3–36.8; O2SAT 86–98; BMI 36.2
[2022-09-12 01:14] LABS: Bedside Glucose 202 mg/dL (74-106)
[2022-09-12 02:51] LABS: Bedside Glucose 112 mg/dL (74-106)
[2022-09-12 06:26] LABS: Absolute Lymphocyte Count 1.09 X10^3/uL (0.83-4.51); Absolute Neutrophil Count 3.4 X10^3/uL (2.0-7.7); Basophil# 0.02 X10^3/uL; Basophil% 0.4 % (0-1); Eosinophil# 0.12 X10^3/uL; Eosinophils% 2.4 % (0-5); Hematocrit 32.9 % (40-54); Hemoglobin 10.8 g/dL (13.0-16.5); Lymphocyte # 1.09 X10^3/ul (0.83-4.51); Lymphocyte % 21.5 % (19-41); Mean Corp Hgb Conc 32.8 g/dL (32-36); Mean Corpuscular Volume 100.6 fL (80-94); Monocyte# 0.44 X10^3/uL; Monocyte% 8.7 % (0-10); NRBC Flagged by Analyzer 0 % (0-5); Neutrophil # 3.38 X10^3/uL (2.7-7.7); Neutrophil % 66.6 % (47-70); Platelet Count 137 K/mm3 (150-450); RBC Distribution Width CV 13.4 % (11.6-14.6); RBC Distribution Width SD 49.1 fl (35.1-43.9); Red Blood Count 3.27 M/mm3 (4.6-6.2); White Blood Count 5.1 K/mm3 (4.4-11.0)
[2022-09-12 06:54] LABS: Anion Gap 3 (5-15); BUN 28 mg/dL (7-18); BUN/Creat Ratio 31.5 RATIO (10-20); Calcium,Total 8.5 mg/dL (8.5-10.1); Chloride 105 mmol/L (98-107); Creatinine, Serum 0.89 mg/dL (0.70-1.30); EST Glomerular Filtration Rate 90 mL/min (>60); Est Glom Filt Rate - Afr Amer 108 mL/min (>60); Estimated Creatinine Clearance 77.47 ml/min; Glucose 64 mg/dL (74-106); Potassium 3.5 mmol/L (3.5-5.1); Sodium Level 142 mmol/L (136-145)
[2022-09-12 06:55] LABS: Bedside Glucose 74 mg/dL (74-106)
[2022-09-12] MEDS: Clopidogrel Bisulfate 75 MG Tablet PO (09:26)
[2022-09-12] MEDS: Pantoprazole Sodium 40 MG Tablet PO (09:26)
[2022-09-12] MEDS: Escitalopram Oxalate 10 MG Tablet PO (09:26)
[2022-09-12] MEDS: Magnesium Chloride 64 MG Delay Rel.Tablet 128 MG PO (09:26)
[2022-09-12] MEDS: Ranolazine 500 MG Tablet PO (09:26)
[2022-09-12] MEDS: Enoxaparin 40 MG/0.4 ML Syringe SC (09:26)
[2022-09-12] MEDS: Multivitamins,Ther W-Minerals Tablet 1 TABLET PO (09:27)
[2022-09-12] MEDS: Aspirin E.C. 81 MG Tablet PO (09:27)
[2022-09-12] MEDS: Finasteride 5 MG Tablet PO (09:27)
[2022-09-12] MEDS: Cholecalciferol (VIT D3) 25 MCG TABLET (1,000 UNITS) 75 MCG PO (09:27)
[2022-09-12] MEDS: Spironolactone 25 MG Tablet PO (09:27)
--- NOTE | 2022-09-12 09:30 | CASEMGMT ---
Discharge Planning Patient has been accepted by [facility]. RN CM and patients notified. SOC will be 09/15/22. Rylie Godinez, Discharge Planning Asst.
--- NOTE | 2022-09-12 09:35 | CASEMGMT ---
Discharge Planning A list of home health providers including quality and resource use data and consistent with patient?s preferred geographic region, medical needs, and insurance network were provided from the [employer] Guide. Rylie Godinez, Discharge Planning Asst.
--- NOTE | 2022-09-12 09:54 | DS.PCM_ITS ---
Providers Date of Admission: 09/10/22 Date of Discharge: 09/12/22 Primary Care Physician: [place] [facility] Reason For Visit: ACUTE EXACERBATION OF HEART FAILURE Diagnosis Discharge Diagnosis (1) Chest pain: Status: Acute Code(s): R07.9 - Chest pain, unspecified (2) Dyspnea: Status: Acute Code(s): R06.00 - Dyspnea, unspecified (3) Heart failure: Status: Acute Code(s): I50.9 - Heart failure, unspecified Plan #Acute exacerbation of HFpEF * shortness of breath has improved * continue diuresis with IV lasix 40mg bid * monitor intake and output * fluid restriction to 1500cc daily. * breathing treatment with bronchodilators * titrate oxygen to maintain sats >90% * * #Chronic hypoxic respiratory failure due to COPD:L on 3L of oxygen at home. Breathing treatment with bronchodilators #Hypertension: on Coreg. IV hydralazine prn #HYperlipidemia: on statin #CAD * complains of chest pain; this is a chronic complaint for patient who also says he has pain all over. Initial troponin was negative, will cycle. continue aspirin, plavix and high intensity statin as well as coreg and ranexa. * #Hyperlipidemia: on statin #Type 2 diabetes mellitus * on lantus. ISS. Accuchecks ACHS * #History of sick sinus syndrome: on pacemaker #Chronic thrombocytopenia: stable #Anxiety and depression: on escitalopram #EKATERINA: on BIPAP DVT prophylaxis: SCDs Code status: full code Disposition: anticipate dc home tomorrow if he remains hemodynamically stable. Medications at Discharge Home Medications aspirin 81 mg tablet,delayed release 81 mg PO DAILY HEART HEALTH 06/11/18 atorvastatin 80 mg tablet 80 mg PO QHS cholesterol 06/11/18 cholecalciferol (vitamin D3) 25 mcg (1,000 unit) tablet (Vitamin D3) 3,000 units PO DAILY supplement 06/11/18 escitalopram oxalate 10 mg tablet 10 mg PO DAILY depression 06/11/18 finasteride 5 mg tablet 5 mg PO DAILY prostate 06/11/18 insulin regular hum U-500 conc 500 unit/mL(3 mL) subcut pen (Humulin R U-500 (Conc) Insulin Kwikpen) 115 unit SQ BID diabetes 06/11/18 nitroglycerin 0.4 mg sublingual tablet 0.4 mg sublingual Q5M PRN Chest Pain #30 TABLETS 07/22/18 pantoprazole 40 mg tablet,delayed release 40 mg PO BID GERD 05/18/20 carvedilol 25 mg tablet 25 mg PO BID blood pressure 06/22/20 ranolazine 500 mg tablet,extended release,12 hr 500 mg PO Q12H chest pain 06/22/20 tamsulosin 0.4 mg capsule 0.4 mg PO QHS PROSTATE 08/10/20 clopidogrel 75 mg tablet (Plavix) 75 mg PO DAILY blood thinner 01/07/21 glucose 4 gram chewable tablet 16 g PO Q15M PRN Hypoglycemia 08/17/21 albuterol sulfate 2.5 mg/3 mL (0.083 %) solution for nebulization 2.5 mg inhalation Q6H PRN Shortness Of Breath Or Wheezing 12/12/21 ferrous sulfate 325 mg (65 mg iron) tablet 325 mg PO BID SUPPLEMENT 12/12/21 guaifenesin 100 mg/5 mL oral liquid 200 mg PO TID PRN Cough 12/12/21 ketoconazole 2 % shampoo 1 applic topical DAILY dry scalp 12/12/21 magnesium oxide 420 mg tablet 420 mg PO BID SUPPLEMENT 12/12/21 multivitamin with minerals 1 tab PO DAILY SUPPLEMENT 12/12/21 acetaminophen 325 mg tablet (Tylenol) 650 mg (2 x 325 mg) PO Q8H PRN PRN Pain #30 tabs 04/17/22 diclofenac sodium 1 % gel topical kit 2 g topical BID unsure 08/06/22 spironolactone 25 mg tablet (Aldactone) 25 mg PO DAILY blood pressure 09/10/22 furosemide 40 mg tablet (Lasix) 40 mg PO QAM PRN edema 1 day #30 tabs 09/12/22 Hospital Course Operations None Procedures None Summary of Care Provided Minutes Spent on Discharge: 47 Hospital Course: GIOVANNY LEONARDO, is a 72 M with a PMH as outlined who presents via the ED On 09/10/2022 with a complaint of shortness of breath and chest pain. HE has multiple admissions for the same complaints. HE said his symptoms started in the early hours of the day of admission, though he hadnt felt very well for 2 weeks prior to admission. He denied any dizziness or lightheadedness, and had a cough which was productive of sputum. He was quite weak in the ED and desaturated in the ED to the 80s. He had been taken off his lasix by the [place] and per his , switched to a blood pressure medication that also caused diuresis. He had no fever, chills, nausea, vomiting or any other symptoms. Review of systems was otherwise negative. Vitals in the ED were temp of 97F, BP of 149/106, [place] of 61 and RR of 23. HE was saturatiing at 92% on 3L of oxygen. CBC showed Hb of 11.7, wbc of 5.5 and platelets of 122. Chemistry showed sodium of 141, potassium of 4, bicarb of 33 and Cr of 1.03. Initial troponin was 24 and BNP was 136.4. CXR showed cardiomegaly and pulmonary edema. He was admitted to be managed for acute exacerbation of HFpEF. He was diuresed with IV lasix 40mg bid. His shortness of breath resolved and he felt much better. He was put on his home lasix 40mg daily and told to take it scheduled until he followed up with his PCP and homicide detective at the [place]. He was discharged h ome on 09/12/2022. He is to follow up with his PCP and homicide detective within 1-2 weeks. Pretty seen and examined prior to discharge. He had no active complaints and had an uneventful night. Review of systems was otherwise negative. Labs and vitals reviewed. Home meds reviewed and reconciled. Physical Exam Const alert, oriented x3 and no apparent distress General Appearance: cooperative and comfortable Exam Limitations: no limitations HEENT normocephalic, head/scalp atraumatic, hearing grossly normal bilaterally and moist oral mucous membranes Mouth: oral and palatal mucosa normal Eyes PERRL, EOMs intact bilaterally and conjunctivae normal Neck no lymphadenopathy and supple Resp Resp Narrative: mildly diminished breath sounds bibasally, no wheezes or crackles.on 3L of oxygen by nasal canula. Cardio regular rate, regular rhythm, S1 normal heart sound, S2 normal heart sound and no murmurs GI normal to inspection, nondistended, normoactive bowel sounds, soft to palpation, non-tender and non-distended Extremity normal to inspection and full ROM Extremity Narrative: +1 bipedal pitting edema Skin no rashes or lesions noted General Skin Exam: no breakdown Neuro oriented x3, CN's II-XII intact bilaterally, moves all extremities and no focal motor deficits Sensorium / Orientation: awake and alert Motor Exam: strength 5/5 throughout Psych affect normal Appearance: appropriate Weight / BMI Weight Weight: 252 lb 6.868 oz Body Mass Index (BMI) 36.2 ABG / Lab / Microbiology Data 09/12/22 05:18 09/12/22 05:18 Laboratory: Laboratory Results - last 24 hr 09/11/22 12:26: POC Glucose 221 H 09/11/22 16:58: POC Glucose 138 H 09/11/22 21:10: POC Glucose 202 H 09/12/22 02:33: POC Glucose 112 H 09/12/22 05:18: WBC 5.1, RBC 3.27 L, Hgb 10.8 L, Hct 32.9 L, MCV 100.6 H, MCH 33.0 H, MCHC 32.8, RDW Std Deviation 49.1 H, RDW Coeff of Cinda 13.4, Plt Count 137 L, MPV 11.0, Immature Gran % (Auto) 0.400, Neut % (Auto) 66.6, Lymph % (Auto) 21.5, [place] % (Auto) 8.7, Eos % (Auto) 2.4, Baso % (Auto) 0.4, Absolute Neuts (auto) 3.4, Absolute Lymphs (auto) 1.09, Nucleated RBC % 0, Sodium 142, Potassium 3.5, Chloride 105, Carbon Dioxide 34.0 H, Anion Gap 3 L, BUN 28 H, Creatinine 0.89, Estim Creat Clear Calc 77.47, Est GFR (MDRD) Af Amer 108, Est GFR (MDRD) Non-Af 90, BUN/Creatinine Ratio 31.5 H, Glucose 64 L, Calcium 8.5 09/12/22 06:19: POC Glucose 74 D/C Instructions Discharge Diet: Low fat / Low cholesterol Discharge Activity: Return to Normal Activity Weight Bearing Status: Weight bearing as tolerated Call your doctor if you observe: Fever of 101 or Higher, Shortness of breath, Dizziness, Swelling in the ankles, Chest pain and Increased palpitations (irregular heartbeat) Meaningful Use Info Meaningful Use Diagnoses (Choose all that apply): CHF CHF RAMIREZ/ARB ordered at discharge?: No Reason RAMIREZ/ARB not ordered?: Not indicated Documented LVEF (%): 50 Discharge Plan Admission Admit Date/Time: 09/10/22 09:06 Primary Reason for Your Visit: acute exacerbation of HFpEF Attending Provider: Patito Barnes Primary Care Provider: [facility] Instructions Patient Instructions: Heart Failure Discharge Orders/Prescriptions Prescriptions: Continued clopidogrel [Plavix] 75 mg tablet 75 mg PO DAILY diclofenac sodium 1 % kit 2 g topical BID Rx Instructions: apply to single elbow, wrist or hand; for hand includes palm/fingers/back of hand atorvastatin 80 MG tablet 80 mg PO QHS aspirin 81 MG tablet 81 mg PO DAILY finasteride 5 MG tablet 5 mg PO DAILY escitalopram oxalate 10 MG tablet 10 mg PO DAILY cholecalciferol (vitamin D3) [Vitamin D3] 1,000 UNIT tablet 3,000 units PO DAILY Humulin R U-500 (Conc) Kwikpen 500 UNIT/ML insulin pen 115 unit SQ BID nitroglycerin 0.4 MG tablet, sublingual 0.4 mg sublingual Q5M PRN (Reason: Chest Pain) Qty: 30 0RF pantoprazole 40 MG tablet 40 mg PO BID carvedilol 25 MG tablet 25 mg PO BID ranolazine 500 mg Tablet Extended Release 12 Hr 500 mg PO Q12H tamsulosin 0.4 MG capsule 0.4 mg PO QHS glucose 4 gram Tablet,Chewable 16 g PO Q15M PRN (Reason: Hypoglycemia) magnesium oxide 420 mg Tablet 420 mg PO BID ketoconazole 2 % Shampoo 1 applic TOPICAL DAILY albuterol sulfate 2.5 mg /3 mL (0.083 %) Solution For Nebulization 2.5 mg INHALATION Q6H PRN (Reason: Shortness Of Breath Or Wheezing) guaifenesin 100 mg/5 mL Liquid 200 mg PO TID PRN (Reason: Cough) multivitamin with minerals Tablet 1 tab PO DAILY ferrous sulfate 325 mg (65 mg iron) tablet 325 mg PO BID acetaminophen [Tylenol] 325 MG tablet 650 mg PO Q8H PRN PRN (Reason: Pain) Qty: 30 0RF spironolactone [Aldactone] 25 mg tablet 25 mg PO DAILY furosemide [Lasix] 40 mg tablet 40 mg PO QAM PRN (Reason: edema) 1 Days Qty: 30 0RF Referrals / Follow [facility] - Within 2 Weeks Disposition Disposition (needs filled in before D/C Order can be placed): Home Health Service Charges/Coding Visit Charges Inpatient E&M: 62110 Disch Hosp >30min
--- NOTE | 2022-09-12 10:40 | PHA.DC.MR.R ---
Pharmacy [place] Med Reconciliation Pharmacy Service has performed discharge medication reconciliation for this patient. No new medications at time of discharge review. Medications reviewed are from previously reported home medications. The patient's discharge medication list was reviewed for discrepancies and discrepancies were resolved. Medications at Discharge Home Medications aspirin 81 mg tablet,delayed release 81 mg PO DAILY HEART HEALTH 06/11/18 atorvastatin 80 mg tablet 80 mg PO QHS cholesterol 06/11/18 cholecalciferol (vitamin D3) 25 mcg (1,000 unit) tablet (Vitamin D3) 3,000 units PO DAILY supplement 06/11/18 escitalopram oxalate 10 mg tablet 10 mg PO DAILY depression 06/11/18 finasteride 5 mg tablet 5 mg PO DAILY prostate 06/11/18 insulin regular hum U-500 conc 500 unit/mL(3 mL) subcut pen (Humulin R U-500 (Conc) Insulin Kwikpen) 115 unit SQ BID diabetes 06/11/18 nitroglycerin 0.4 mg sublingual tablet 0.4 mg sublingual Q5M PRN Chest Pain #30 TABLETS 07/22/18 pantoprazole 40 mg tablet,delayed release 40 mg PO BID GERD 05/18/20 carvedilol 25 mg tablet 25 mg PO BID blood pressure 06/22/20 ranolazine 500 mg tablet,extended release,12 hr 500 mg PO Q12H chest pain 06/22/20 tamsulosin 0.4 mg capsule 0.4 mg PO QHS PROSTATE 08/10/20 clopidogrel 75 mg tablet (Plavix) 75 mg PO DAILY blood thinner 01/07/21 glucose 4 gram chewable tablet 16 g PO Q15M PRN Hypoglycemia 08/17/21 albuterol sulfate 2.5 mg/3 mL (0.083 %) solution for nebulization 2.5 mg inhalation Q6H PRN Shortness Of Breath Or Wheezing 12/12/21 ferrous sulfate 325 mg (65 mg iron) tablet 325 mg PO BID SUPPLEMENT 12/12/21 guaifenesin 100 mg/5 mL oral liquid 200 mg PO TID PRN Cough 12/12/21 ketoconazole 2 % shampoo 1 applic topical DAILY dry scalp 12/12/21 magnesium oxide 420 mg tablet 420 mg PO BID SUPPLEMENT 12/12/21 multivitamin with minerals 1 tab PO DAILY SUPPLEMENT 12/12/21 acetaminophen 325 mg tablet (Tylenol) 650 mg (2 x 325 mg) PO Q8H PRN PRN Pain #30 tabs 04/17/22 diclofenac sodium 1 % gel topical kit 2 g topical BID unsure 08/06/22 spironolactone 25 mg tablet (Aldactone) 25 mg PO DAILY blood pressure 09/10/22 furosemide 40 mg tablet (Lasix) 40 mg PO QAM PRN edema 1 day #30 tabs 09/12/22
--- NOTE | 2022-09-12 10:53 | CASEMGMT ---
KRISTI CM NOTE: Per Hoda BERRY, home O2 testing has been completed, and states pt is @ his baseline Home O2 and does not need additional O2 orders. Wendy JUANN KRISTI CM
[2022-09-12] MEDS: Insulin Lispro 100 UNIT/ML INSULN.PEN SC (11:25)
[2022-09-12 12:04] LABS: Bedside Glucose 257 mg/dL (74-106)
== END 2022-09-12 13:50 | disposition home health service (06) | DRG 291 ==
LOC: ED 08:31 → PCU 09:13
PROVIDERS: Admitting Provider Student in an Organized Health Care Education/Training Program; Emergency Provider Emergency Medicine; Visit Provider Student in an Organized Health Care Education/Training Program
DX: I11.0 Hypertensive heart disease with heart failure (principal); I50.33 Acute on chronic diastolic (congestive) heart failure; J96.11 Chronic respiratory failure with hypoxia; D69.6 Thrombocytopenia, unspecified; E11.9 Type 2 diabetes mellitus without complications; D64.9 Anemia, unspecified; E78.5 Hyperlipidemia, unspecified; J44.9 Chronic obstructive pulmonary disease, unspecified; Z79.4 Long term (current) use of insulin; G47.33 Obstructive sleep apnea (adult) (pediatric); I25.10 Atherosclerotic heart disease of native coronary artery without angina pectoris; F41.9 Anxiety disorder, unspecified; F32.9 Major depressive disorder, single episode, unspecified; R07.9 Chest pain, unspecified; Z87.891 Personal history of nicotine dependence; Z95.5 Presence of coronary angioplasty implant and graft; Z79.02 Long term (current) use of antithrombotics/antiplatelets; Z79.82 Long term (current) use of aspirin; Z95.0 Presence of cardiac pacemaker; Z99.81 Dependence on supplemental oxygen
CPT/HCPCS: 36415; 71045; 80048; 82962; 83880; 84484; 85025; 85379; 93005; 94002; 94003; 94640; 94762; 97110; 97162; 97166; 97530; 97535; 99252; 99285; A4216; G0463; J1940; J2405

== ENCOUNTER 2022-09-17 10:56 | Emergency (ER) | payer OTHER, SELFPAY ==
[2022-09-17 10:56] VITALS: BP 98/79; PULSE 59; RESP 14; TEMP 36.2; O2SAT 100; BMI 35.9
[2022-09-17 11:10] VITALS: BP 134/64; PULSE 92; RESP 20; O2SAT 99
--- NOTE | 2022-09-17 11:30 | EKG12_ITS ---
Test Reason : Blood Pressure : / mmHG Vent. Rate : 062 BPM Atrial Rate : 062 BPM P-R Int : 196 ms QRS Dur : 202 ms QT Int : 536 ms P-R-T Axes : 000 -61 117 degrees QTc Int : 544 ms AV dual-paced rhythm Abnormal ECG Confirmed by BRYN GUALLPA, JULIO C ([id number]), photographic editor NADINE FERRER ([id number]) on 09/19/2022 1:31:00 PM Referred By: BRIELLE Confirmed By:BELEN CLEMENTE MD
[2022-09-17] MEDS: Aspirin 81 MG TAB.CHEW 324 MG PO (11:41)
[2022-09-17 11:43] LABS: Basophil# 0.02 X10^3/uL; Basophil% 0.5 % (0-1); Eosinophils% 2.4 % (0-5); Hematocrit 33.8 % (40-54); Hemoglobin 11.3 g/dL (13.0-16.5); Lymphocyte % 16.9 % (19-41); Mean Corp Hgb Conc 33.4 g/dL (32-36); Mean Corpuscular Hgb 32.8 pg (27.0-32.0); Mean Platelet Vol. 10.3 fl (6.2-12.0); Monocyte# 0.31 X10^3/uL; Monocyte% 7.5 % (0-10); NRBC Flagged by Analyzer 0 % (0-5); Neutrophil # 2.99 X10^3/uL (2.7-7.7); Neutrophil % 72.5 % (47-70); Platelet Count 118 K/mm3 (150-450); RBC Distribution Width CV 13.5 % (11.6-14.6); RBC Distribution Width SD 47.7 fl (35.1-43.9); Red Blood Count 3.45 M/mm3 (4.6-6.2); White Blood Count 4.1 K/mm3 (4.4-11.0)
--- NOTE | 2022-09-17 11:55 | RAD_ITS ---
STUDY: X-RAY CHEST REASON FOR EXAM: Male, 72 years old. Chest pain and shortness of breath. Syncopal episode. TECHNIQUE: AP and lateral views of the chest. COMPARISON: Comparison is made with prior study dated September 10, 2022. FINDINGS: Stable pleural-parenchymal changes in the left hemithorax with multiple ORIF of left rib fractures. There is no demonstrated pleural abnormality. Sternal cerclage wires and vascular clips are present from a prior sternotomy and coronary artery bypass graft procedure (CABG). Mild degree of vascular congestion. Cardiomegaly. A left-sided dual-chamber pacemaker is seen. Normal mediastinum and cata. Normal visualized pulmonary arteries. There is atherosclerotic tortuosity of the aortic arch and descending thoracic aorta. There are diffuse degenerative changes of the visualized thoracic spine. Normal visualized ribs, clavicles, and shoulders. There is no demonstrated abnormality of the visualized soft tissue structures of the upper abdomen. RAD/Chest PA and Lateral IMPRESSION: Cardiomegaly and mild degree of vascular congestion. Electronically Signed: Mick García MD at 12:12 EDT ,
[2022-09-17 12:02] LABS: Anion Gap 5 (5-15); BNP,B-Type NATRIURETIC PEPTIDE 78.4 pg/mL (0-100); BUN 18 mg/dL (7-18); BUN/Creat Ratio 19.7 RATIO (10-20); Calcium,Total 8.3 mg/dL (8.5-10.1); Chloride 106 mmol/L (98-107); Creatinine, Serum 0.91 mg/dL (0.70-1.30); EST Glomerular Filtration Rate 87 mL/min (>60); Est Glom Filt Rate - Afr Amer 105 mL/min (>60); Estimated Creatinine Clearance 75.76 ml/min; Glucose 193 mg/dL (74-106); Potassium 3.7 mmol/L (3.5-5.1); Sodium Level 140 mmol/L (136-145); Troponin-I HS (w/2H Reflex) 23 pg/mL (3.0-78.0)
[2022-09-17 13:09] VITALS: BP 150/73; PULSE 61; RESP 17; O2SAT 97
[2022-09-17] MEDS: Ketorolac 15 MG/ML Vial IV (13:21)
[2022-09-17 13:41] LABS: Reflex Troponin-HS? (from REC) Y
[2022-09-17 14:02] LABS: Troponin-I HS 21 pg/mL (3.0-78.0)
--- NOTE | 2022-09-17 15:05 | ED.VIS.CHEST ---
HPI History of Present Illness Chief Complaint: Chest Pain Informant: patient and spouse/S.O. Narrative Narrative: Patient is a 72-year-old male with history of COPD, cardiac pacemaker, chronic hypoxic respiratory failure, EKATERINA and recent mission for fluid overload presenting with chest pain. Patient has a history of chronic chest pain. He is requested referral [facility] but that has been declined by his PCP stating he does not need it. He previously has been on gabapentin for his chest pain but did not tolerate it. Patient states he is experiencing sharp needlelike pressure in his chest. It comes in waves. He also has a history of syncope and had an episode today however none of this is new for him. He denies any deviation from his chronic symptoms. He does not have increased shortness of breath. Does feel like his fluid balance is better after his recent admission. Prior Similar Symptoms: Yes PFSH [facility] Medical History Abnormal EKG Anemia Atherosclerotic heart disease [place] coronary artery w/angina pectoris BiPAP (biphasic positive airway pressure) dependence CAD (coronary artery disease) Chest pain Chronic hyperglycemia Chronic respiratory failure Congestive heart failure (CHF) Conversion reaction COPD (chronic obstructive pulmonary disease) Diabetes DM type 2 (diabetes mellitus, type 2) Dysarthria Essential (primary) hypertension Former smoker Heart failure Hemiparesis, left History of fractured rib History of TIAs Hyperlipidemia Myocardial infarct Obesity On home oxygen therapy EKATERINA (obstructive sleep apnea) Pacemaker Pacemaker battery depletion Pulmonary embolism Sick sinus syndrome Stroke/cerebrovascular accident Wears hearing aid in both ears Home Medications aspirin 81 mg tablet,delayed release 81 mg PO DAILY HEART HEALTH 06/11/18 [History Last Taken 04/14/22] atorvastatin 80 mg tablet 80 mg PO QHS cholesterol 06/11/18 [History Last Taken 09/09/22] cholecalciferol (vitamin D3) 25 mcg (1,000 unit) tablet (Vitamin D3) 3,000 units PO DAILY supplement 06/11/18 [History Last Taken 04/14/22] escitalopram oxalate 10 mg tablet 10 mg PO DAILY depression 06/11/18 [History Last Taken 04/14/22] finasteride 5 mg tablet 5 mg PO DAILY prostate 06/11/18 [History Last Taken 04/14/22] insulin regular hum U-500 conc 500 unit/mL(3 mL) subcut pen (Humulin R U-500 (Conc) Insulin Kwikpen) 115 unit SQ BID diabetes 06/11/18 [History Last Taken 09/09/22] nitroglycerin 0.4 mg sublingual tablet 0.4 mg sublingual Q5M PRN Chest Pain #30 TABLETS 07/22/18 [Rx Last Taken 01/17/20] pantoprazole 40 mg tablet,delayed release 40 mg PO BID GERD 05/18/20 [History Last Taken 09/09/22] carvedilol 25 mg tablet 25 mg PO BID blood pressure 06/22/20 [History Last Taken 04/14/22] ranolazine 500 mg tablet,extended release,12 hr 500 mg PO Q12H chest pain 06/22/20 [History Last Taken 04/14/22] tamsulosin 0.4 mg capsule 0.4 mg PO QHS PROSTATE 08/10/20 [History Last Taken 09/09/22] clopidogrel 75 mg tablet (Plavix) 75 mg PO DAILY blood thinner 01/07/21 [History Last Taken 04/14/22] glucose 4 gram chewable tablet 16 g PO Q15M PRN Hypoglycemia 08/17/21 [History Last Taken Unknown] albuterol sulfate 2.5 mg/3 mL (0.083 %) solution for nebulization 2.5 mg inhalation Q6H PRN Shortness Of Breath Or Wheezing 12/12/21 [History Last Taken 09/09/22] ferrous sulfate 325 mg (65 mg iron) tablet 325 mg PO BID SUPPLEMENT 12/12/21 [History Last Taken 04/14/22] guaifenesin 100 mg/5 mL oral liquid 200 mg PO TID PRN Cough 12/12/21 [History Last Taken 1 Week Ago ~12/05/21] ketoconazole 2 % shampoo 1 applic topical DAILY dry scalp 12/12/21 [History Last Taken 04/14/22] magnesium oxide 420 mg tablet 420 mg PO BID SUPPLEMENT 12/12/21 [History Last Taken 09/09/22] multivitamin with minerals 1 tab PO DAILY SUPPLEMENT 12/12/21 [History Last Taken 09/09/22] acetaminophen 325 mg tablet (Tylenol) 650 mg (2 x 325 mg) PO Q8H PRN PRN Pain #30 tabs 04/17/22 [Rx Last Taken 12/11/21] diclofenac sodium 1 % gel topical kit 2 g topical BID unsure 08/06/22 [History Last Taken Unknown] spironolactone 25 mg tablet (Aldactone) 25 mg PO DAILY blood pressure 09/10/22 [History Last Taken 09/09/22] furosemide 40 mg tablet (Lasix) 40 mg PO QAM PRN edema 1 day #30 tabs 09/12/22 [Rx Last Taken 09/08/22] Allergy/AdvReac Type Severity Reaction Status Date / Time ezetimibe Allergy Unknown Verified 09/17/22 10:59 Fish Containing Products Allergy Unknown Verified 09/17/22 10:59 glyburide Allergy Unknown Verified 09/17/22 10:59 isosorbide Allergy PT UNSURE Verified 09/17/22 10:59 OF REACTION lisinopril Allergy Unknown Verified 09/17/22 10:59 metformin Allergy Nausea Verified 09/17/22 10:59 metoprolol Allergy Unknown Verified 09/17/22 10:59 simvastatin Allergy Unknown Verified 09/17/22 10:59 iron AdvReac Mild Vomiting Verified 09/17/22 10:59 gabapentin AdvReac Other Verified 09/17/22 10:59 Family History Father No problems noted. Surgical History H/O coronary artery bypass surgery History of cholecystectomy History of coronary artery stent placement History of knee replacement procedure of left knee History of permanent cardiac pacemaker placement (01/14/21) Social History household members: spouse Smoking Status: Former smoker details: Unknown substance use type: does not use ROS ROS ED Constitutional Constitutional ED: Denies chills or fever(s) Cardiovascular Cardiovascular: Reports as per HPI and chest pain; Denies palpitations Respiratory/Chest Respiratory/Chest: Reports dyspnea; Denies cough Gastrointestinal Gastrointestinal: Denies nausea or vomiting Musculoskeletal Musculoskeletal: Denies arthralgias or back pain Integumentary Denies rash Neurologic Neurologic: Reports weakness Psychiatric Psychiatric: Reports anxiety Hematologic/Lymphatic Hematologic/Lymphatic: Denies easy bleeding or easy bruising EXAM Physical Exam Const Vital Signs: 09/17/22 10:56 09/17/22 11:10 09/17/22 13:09 Temperature 97.2 F L Temperature Source Temporal Pulse Rate 59 L 92 61 Respiratory Rate 14 20 H 17 Blood Pressure 98/79 134/64 H 150/73 H Blood Pressure Mean 85 87 98 Pulse Ox 100 99 97 Oxygen Delivery Method Room Air Nasal Cannula Oxygen Flow Rate (L/min) 3 09/17/22 15:15 Temperature Temperature Source Pulse Rate 62 Respiratory Rate 18 Blood Pressure 151/81 H Blood Pressure Mean Pulse Ox Oxygen Delivery Method Oxygen Flow Rate (L/min) Positive well nourished and well developed General Appearance ED: well developed and NAD HEENT Reports moist mucous membranes normocephalic and atraumatic Neck supple and no JVD Chest Wall inspection of chest normal and palpation of chest normal Chest: Negative for tenderness Resp normal respiratory effort and clear to auscultation bilaterally Cardio regular rate, regular rhythm and no murmurs GI normal to inspection, nondistended, normoactive bowel sounds and soft to palpation Extremity normal to inspection General Extremety ED: Negative for edema General Extremity: Negative for edema Neuro oriented x3 Sensorium / Orientation: awake and alert Motor Exam: general weakness Psych mental status grossly normal Skin no rashes or lesions noted MDM MDM MDM Narrative Medical decision making narrative: Patient is evaluated for chronic chest pain. I do not think there is ACS. He does not appear fluid overloaded today. He is on his baseline oxygen. He was just hospitalized and discharged for fluid overload. During that hospitalization he was complaining of the same chest pain which was thought to be chronic. I do not think he requires admission for this chest pain. I question if there is either come opponent of anxiety or some type of muscle skeletal/chronic pain with this. Discussed potential referral to pain management. Patient would like referral to pain management however his PCP previously declined to this. He is given referral to pain management today and they we will see if that will be sufficient [facility] to [facility]. In addition did discuss with talking with his PCP about anxiety medicines as this might also help with his symptoms. Given the chronicity of his symptoms and work-up in the ER I do not think he requires admission and can safely be discharged home from a cardiac standpoint. I do not think there is an acute emergent process. Lab Data Attestation: I reviewed the patient's lab results. Labs: Laboratory Results - last 24 hr 09/17/22 09/17/22 11:30 13:30 WBC 4.1 L RBC 3.45 L Hgb 11.3 L Hct 33.8 L MCV 98.0 H MCH 32.8 H MCHC 33.4 RDW Std Deviation 47.7 H RDW Coeff of Cinda 13.5 Plt Count 118 L MPV 10.3 Immature Gran % (Auto) 0.200 Neut % (Auto) 72.5 H Lymph % (Auto) 16.9 L Hendricks % (Auto) 7.5 Eos % (Auto) 2.4 Baso % (Auto) 0.5 Absolute Neuts (auto) 3.0 Absolute Lymphs (auto) 0.70 L Nucleated RBC % 0 Sodium 140 Potassium 3.7 Chloride 106 Carbon Dioxide 29.0 Anion Gap 5 BUN 18 Creatinine 0.91 Estim Creat Clear Calc 75.76 Est GFR (MDRD) Af Amer 105 Est GFR (MDRD) Non-Af 87 BUN/Creatinine Ratio 19.7 Glucose 193 H Calcium 8.3 L Troponin I High Sens 23 21 B-Natriuretic Peptide 78.4 Radiography Diagnostic Testing: Clinical Impression(s) from Imaging Studies Chest X-Ray 09/17/22 11:55 IMPRESSION: Cardiomegaly and mild degree of vascular congestion. Electronically Signed: Mick García MD at 12:12 EDT , Rhythm Strip Rhythm Strip: paced Rate: 62 EKG Initial EKG: Attestation: I personally reviewed and interpreted this EKG as follows: Comments: AV dual paced rhythm Rate of 62 QRS 202 QTc 544 No acute ischemic process Differential Diagnosis Chest pain/SOB: ACS ACS: Positive for no evidence of ACS based on cardiac biomarkers, EKG without ischemia and history not suggestive of ischemia pain, pneumothorax Reason(s) pneumothorax less likely: Positive for bilateral breath sounds and [employer] withhout PTX, pneumonia Reason(s) pneumonia less likely: Positive for no infiltrate on CXR, no elevation in WBC count, no noted fever and symptoms not consistent with acute infection, aortic dissection Reason(s) Aortic dissection less likely:: Positive for normal neurological exam, no widened mediastinum on CXR, pain not sudden onset and no ripping/tearing pain, CHF Reason(s) CHF less likely: Positive for no significant peripheral edema, no orthopnea and BtNP not significantly elevated over normal/baseline and COPD Reason(s) COPD less likely: Positive for no significant wheezing on exam, no tachypnea, no conversational dyspnea and normal air movement noted on auscultation on lungs Discharge Plan Dx/Rx/DC Orders Clinical Impression: Chest pain of uncertain etiology Disposition Disposition: Acute Care Hospital [facility] Discharge Date/Time: 09/17/22 15:23
[2022-09-17 15:15] VITALS: BP 151/81; PULSE 62; RESP 18
== END 2022-09-17 15:23 | disposition home or self-care (01) ==
PROVIDERS: Emergency Provider Emergency Medicine; Visit Provider Emergency Medicine
DX: R07.9 Chest pain, unspecified (principal); J44.9 Chronic obstructive pulmonary disease, unspecified; I11.0 Hypertensive heart disease with heart failure; I50.9 Heart failure, unspecified; E11.9 Type 2 diabetes mellitus without complications; Z79.4 Long term (current) use of insulin; I25.10 Atherosclerotic heart disease of native coronary artery without angina pectoris; E78.5 Hyperlipidemia, unspecified; Z87.891 Personal history of nicotine dependence; Z95.0 Presence of cardiac pacemaker; I25.2 Old myocardial infarction; Z86.73 Personal history of transient ischemic attack (TIA), and cerebral infarction without residual deficits; Z79.82 Long term (current) use of aspirin; Z79.899 Other long term (current) drug therapy; Z79.02 Long term (current) use of antithrombotics/antiplatelets; Z90.49 Acquired absence of other specified parts of digestive tract; Z95.5 Presence of coronary angioplasty implant and graft
CPT/HCPCS: 71046; 80048; 83880; 84484; 85025; 93005; 96374; 99284; A4216

== ENCOUNTER 2022-10-01 15:20 | Emergency (ER) | payer OTHER, SELFPAY ==
[2022-10-01] VITALS (18 sets, daily range): BP systolic 129–161; BP diastolic 64–107; PULSE 59–68; RESP 15–23; TEMP 36.2; O2SAT 97–100; BMI 35.9
--- NOTE | 2022-10-01 15:34 | EKG12_ITS ---
Test Reason : CP Blood Pressure : / mmHG Vent. Rate : 060 BPM Atrial Rate : 060 BPM P-R Int : 198 ms QRS Dur : 196 ms QT Int : 514 ms P-R-T Axes : 000 -61 127 degrees QTc Int : 514 ms AV dual-paced rhythm Abnormal ECG Confirmed by GEORGIE TERRAZAS ([id number]), commissioning editor KENDALL ROCHE ([id number]) on 10/02/2022 11:27:00 AM Referred By: Confirmed By:GEORGIE TERRAZAS
--- NOTE | 2022-10-01 15:40 | RAD_ITS ---
STUDY: X-RAY CHEST REASON FOR EXAM: Male, 72 years old. chest pain TECHNIQUE: Single AP portable view of the chest. COMPARISON: 09/17/2022. FINDINGS: No definite acute chest disease. Mild cardiomegaly. Previous CABG. Pacemaker is seen with leads terminating in the right atrium and right ventricle.. Again seen are numerous left-sided rib prostheses. RAD/Chest 1 View (Portable) IMPRESSION: No definite acute chest disease. Electronically Signed: Richard Dow MD at 16:51 EDT ,
[2022-10-01 16:13] LABS: Absolute Lymphocyte Count 0.69 X10^3/uL (0.83-4.51); Absolute Neutrophil Count 3.8 X10^3/uL (2.0-7.7); Basophil# 0.01 X10^3/uL; Basophil% 0.2 % (0-1); Eosinophil# 0.11 X10^3/uL; Eosinophils% 2.2 % (0-5); Hematocrit 36.2 % (40-54); Hemoglobin 12.3 g/dL (13.0-16.5); Lymphocyte # 0.69 X10^3/ul (0.83-4.51); Mean Corpuscular Hgb 33.2 pg (27.0-32.0); Mean Corpuscular Volume 97.8 fL (80-94); Mean Platelet Vol. 10.6 fl (6.2-12.0); Monocyte# 0.34 X10^3/uL; Monocyte% 6.9 % (0-10); NRBC Flagged by Analyzer 0 % (0-5); Neutrophil # 3.76 X10^3/uL (2.7-7.7); Neutrophil % 76.5 % (47-70); Platelet Count 141 K/mm3 (150-450); RBC Distribution Width CV 13.4 % (11.6-14.6); RBC Distribution Width SD 47.3 fl (35.1-43.9); White Blood Count 4.9 K/mm3 (4.4-11.0)
--- NOTE | 2022-10-01 16:28 | EDS_ITS ---
HPI History of Present Illness Chief Complaint: Chest Pain Informant: patient and spouse/S.O. Narrative Narrative: Ongoing intermittent chest pains reports heaviness. History of COPD CHF chronic 3 L oxygen. History of pacemaker. Four-vessel bypass 2006 followed by the [place]. Reports admitted to hospital couple weeks ago due to fluid overload. He states he follow-up with his doctor a week ago diuretics was stopped. He does have leg swelling reports some orthopnea. Denies cough. Hypertension diabetes hyperlipidemia remote tobacco. Same symptoms when he was admitted the last time per patient. He is taking aspirin at home to nitroglycerin and Tylenol with no relief. Pain is currently a 9. Prior Similar Symptoms: Yes CVD Risk Factors: Positive for Hypertension, Diabetes, Hypercholesterolemia and Smoking PE Risk Factors: Negative for Recent Travel/Surgery, Recent Immobilization or Prior DVT or PE [facility] Medical History Abnormal EKG Anemia Atherosclerotic heart disease [place] coronary artery w/angina pectoris BiPAP (biphasic positive airway pressure) dependence CAD (coronary artery disease) Chest pain Chronic hyperglycemia Chronic respiratory failure Congestive heart failure (CHF) Conversion reaction COPD (chronic obstructive pulmonary disease) Diabetes DM type 2 (diabetes mellitus, type 2) Dysarthria Essential (primary) hypertension Former smoker Heart failure Hemiparesis, left History of fractured rib History of TIAs Hyperlipidemia Myocardial infarct Obesity On home oxygen therapy EKATERINA (obstructive sleep apnea) Pacemaker Pacemaker battery depletion Pulmonary embolism Sick sinus syndrome Stroke/cerebrovascular accident Wears hearing aid in both ears Home Medications aspirin 81 mg tablet,delayed release 81 mg PO DAILY HEART HEALTH 06/11/18 [History Last Taken 04/14/22] atorvastatin 80 mg tablet 80 mg PO QHS cholesterol 06/11/18 [History Last Taken 09/09/22] cholecalciferol (vitamin D3) 25 mcg (1,000 unit) tablet (Vitamin D3) 3,000 units PO DAILY supplement 06/11/18 [History Last Taken 04/14/22] escitalopram oxalate 10 mg tablet 10 mg PO DAILY depression 06/11/18 [History Last Taken 04/14/22] finasteride 5 mg tablet 5 mg PO DAILY prostate 06/11/18 [History Last Taken 04/14/22] insulin regular hum U-500 conc 500 unit/mL(3 mL) subcut pen (Humulin R U-500 (Conc) Insulin Kwikpen) 115 unit SQ BID diabetes 06/11/18 [History Last Taken 09/09/22] nitroglycerin 0.4 mg sublingual tablet 0.4 mg sublingual Q5M PRN Chest Pain #30 TABLETS 07/22/18 [Rx Last Taken 01/17/20] pantoprazole 40 mg tablet,delayed release 40 mg PO BID GERD 05/18/20 [History Last Taken 09/09/22] carvedilol 25 mg tablet 25 mg PO BID blood pressure 06/22/20 [History Last Taken 04/14/22] ranolazine 500 mg tablet,extended release,12 hr 500 mg PO Q12H chest pain 06/22/20 [History Last Taken 04/14/22] tamsulosin 0.4 mg capsule 0.4 mg PO QHS PROSTATE 08/10/20 [History Last Taken 09/09/22] clopidogrel 75 mg tablet (Plavix) 75 mg PO DAILY blood thinner 01/07/21 [History Last Taken 04/14/22] glucose 4 gram chewable tablet 16 g PO Q15M PRN Hypoglycemia 08/17/21 [History Last Taken Unknown] albuterol sulfate 2.5 mg/3 mL (0.083 %) solution for nebulization 2.5 mg inhalation Q6H PRN Shortness Of Breath Or Wheezing 12/12/21 [History Last Taken 09/09/22] ferrous sulfate 325 mg (65 mg iron) tablet 325 mg PO BID SUPPLEMENT 12/12/21 [History Last Taken 04/14/22] guaifenesin 100 mg/5 mL oral liquid 200 mg PO TID PRN Cough 12/12/21 [History Last Taken 1 Week Ago ~12/05/21] ketoconazole 2 % shampoo 1 applic topical DAILY dry scalp 12/12/21 [History Last Taken 04/14/22] magnesium oxide 420 mg tablet 420 mg PO BID SUPPLEMENT 12/12/21 [History Last Taken 09/09/22] multivitamin with minerals 1 tab PO DAILY SUPPLEMENT 12/12/21 [History Last Taken 09/09/22] acetaminophen 325 mg tablet (Tylenol) 650 mg (2 x 325 mg) PO Q8H PRN PRN Pain #30 tabs 04/17/22 [Rx Last Taken 12/11/21] diclofenac sodium 1 % gel topical kit 2 g topical BID unsure 08/06/22 [History Last Taken Unknown] spironolactone 25 mg tablet (Aldactone) 25 mg PO DAILY blood pressure 09/10/22 [History Last Taken 09/09/22] furosemide 40 mg tablet (Lasix) 40 mg PO QAM PRN edema 1 day #30 tabs 09/12/22 [Rx Last Taken 09/08/22] Allergy/AdvReac Type Severity Reaction Status Date / Time ezetimibe Allergy Unknown Verified 10/01/22 15:22 Fish Containing Products Allergy Unknown Verified 10/01/22 15:22 glyburide Allergy Unknown Verified 10/01/22 15:22 isosorbide Allergy PT UNSURE Verified 10/01/22 15:22 OF REACTION lisinopril Allergy Unknown Verified 10/01/22 15:22 metformin Allergy Nausea Verified 10/01/22 15:22 metoprolol Allergy Unknown Verified 10/01/22 15:22 simvastatin Allergy Unknown Verified 10/01/22 15:22 iron AdvReac Mild Vomiting Verified 10/01/22 15:22 gabapentin AdvReac Other Verified 10/01/22 15:22 Family History Father No problems noted. Surgical History H/O coronary artery bypass surgery History of cholecystectomy History of coronary artery stent placement History of knee replacement procedure of left knee History of permanent cardiac pacemaker placement (01/14/21) Social History household members: spouse Smoking Status: Former smoker details: Unknown substance use type: does not use ROS ROS ED Constitutional Constitutional ED: Denies chills, fever(s) or sweats Eyes Eyes: Denies change in vision ENT ENT ED: Denies dysphagia or sore throat Cardiovascular Cardiovascular: Reports chest pain, leg edema and orthopnea; Denies palpitations or racing heartbeat Respiratory/Chest Respiratory/Chest: Reports dyspnea and orthopnea; Denies cough or dyspnea on exertion Gastrointestinal Gastrointestinal: Denies abdominal pain, diarrhea, nausea or vomiting Genitourinary Genitourinary ED: Denies dysuria, hematuria or urinary frequency Musculoskeletal Musculoskeletal: Denies back pain or neck pain Integumentary Denies rash or wounds Neurologic Neurologic: Denies headache(s), paresthesias or weakness EXAM Physical Exam Const Vital Signs: 10/01/22 15:22 10/01/22 17:00 10/01/22 17:20 Temperature 97.1 F L Temperature Source Temporal Pulse Rate 59 L 60 Respiratory Rate 20 H 16 Blood Pressure 142/65 H 136/66 H Blood Pressure Mean 90 89 Pulse Ox 100 98 Oxygen Delivery Method Nasal Cannula Nasal Cannula Nasal Cannula Oxygen Flow Rate (L/min) 3 3 3 10/01/22 20:15 10/01/22 18:09 10/01/22 18:10 Temperature Temperature Source Pulse Rate 60 60 60 Respiratory Rate 18 19 H 16 Blood Pressure 151/66 H Blood Pressure Mean Pulse Ox 97 98 99 Oxygen Delivery Method Oxygen Flow Rate (L/min) 10/01/22 18:15 10/01/22 18:20 10/01/22 18:30 Temperature Temperature Source Pulse Rate 64 66 60 Respiratory Rate 17 23 H 20 H Blood Pressure 129/107 H 152/64 H Blood Pressure Mean 116 92 Pulse Ox 98 99 99 Oxygen Delivery Method Nasal Cannula Oxygen Flow Rate (L/min) 3 10/01/22 18:40 10/01/22 18:45 10/01/22 18:50 Temperature Temperature Source Pulse Rate 60 61 62 Respiratory Rate 16 17 15 Blood Pressure 151/66 H Blood Pressure Mean 92 Pulse Ox 100 100 Oxygen Delivery Method Oxygen Flow Rate (L/min) 10/01/22 19:00 10/01/22 19:10 10/01/22 19:15 Temperature Temperature Source Pulse Rate 60 68 64 Respiratory Rate 18 22 H 20 H Blood Pressure 154/68 H 160/79 H Blood Pressure Mean 93 103 Pulse Ox 99 97 99 Oxygen Delivery Method Oxygen Flow Rate (L/min) 10/01/22 19:20 10/01/22 19:30 10/01/22 19:40 Temperature Temperature Source Pulse Rate 60 62 66 Respiratory Rate 21 H 21 H 19 H Blood Pressure 161/84 H Blood Pressure Mean 105 Pulse Ox 99 99 98 Oxygen Delivery Method Nasal Cannula Oxygen Flow Rate (L/min) 3 10/01/22 19:45 Temperature Temperature Source Pulse Rate 60 Respiratory Rate 23 H Blood Pressure 158/86 H Blood Pressure Mean 106 Pulse Ox 99 Oxygen Delivery Method Oxygen Flow Rate (L/min) Positive well nourished and well developed Constitutional Narrative: 3 L nasal cannula no distress. General Appearance ED: well developed and NAD HEENT Reports moist mucous membranes normocephalic and atraumatic Eyes PERRL, EOMs intact bilaterally and conjunctivae normal General Eye ED: Yes normal appearance of both eyes Neck no lymphadenopathy and supple General: Negative for tenderness Chest Wall Chest: Negative for tenderness Resp normal respiratory effort and normal air movement Effort and Inspection: symmetric chest movement; Negative for respiratory di stress Cardio regular rate, regular rhythm and no murmurs Peripheral Pulses: pulses 2+ throughout GI normal to inspection, nondistended, normoactive bowel sounds and non-tender Palpation: Negative for guarding or rebound tenderness present Back/Spine no CVA tenderness and no thoracic nor lumbar tenderness Extremity normal to inspection Extremity Narrative: 1+ lower extremity edema General Extremety ED: Yes edema; Negative for tenderness General Extremity: edema Neuro oriented x3 and no sensory deficits noted Sensorium / Orientation: awake and alert Skin no rashes or lesions noted and no wounds Heart Score History: Slightly/Non-Suspicious ECG: Normal Age: >/= 65 years Risk Factors: >/= 3 Risk Factors or History of CAD Troponin: </= Normal Limit Score: 4 MDM MDM MDM Narrative Medical decision making narrative: Interventions / MDM: Differential diagnosis: Atypical chest pains, peripheral edema Diagnosis considered but do not suspect: ACS however EKG and cardiac enzymes were negative. CHF, however no pleural effusion. My EKG interpretation: Dual paced rhythm rate of 60, no acute findings. Unchanged EKG from 14 days ago. Imaging independently reviewed and interpreted by myself: 1 view chest x-ray: No acute process. No pleural effusion. External documents reviewed: N/A Test considered but not ordered:N/A ED course: Patient prior chest pains EKG paced rhythm unchanged from previous. Cardiac work-up initiated with his cardiac history troponin x2 was negative. BNP slightly elevated at 105. No pleural effusion on chest x-ray. History of morphine x2. Nitroglycerin x2 at home prior arrival did not help. 2000: Reevaluation symptoms improving. Discussed cardiac work-up negative at this time. No pleural effusion however he does have 1+ lower extremity edema. [facility] still have this at [facility]. Reported restarted today per spouse x1. He will use this daily for the next 5 days. He will follow-up with his doctor. Return precautions. All questions were answered. Re-evaluation: stable Disposition discussed with patient/family/significant other: Patient and spouse Case discussed with consulting clinician: N/A This note was generated with [employer] dictation software. It may contain incorrect words, spelling, and punctuation that were not noted in checking the note before signing. Lab Data Attestation: I reviewed the patient's lab results. Labs: Laboratory Results - last 24 hr 10/01/22 10/01/22 15:50 18:11 WBC 4.9 RBC 3.70 L Hgb 12.3 L Hct 36.2 L MCV 97.8 H MCH 33.2 H MCHC 34.0 RDW Std Deviation 47.3 H RDW Coeff of Cinda 13.4 Plt Count 141 L MPV 10.6 Immature Gran % (Auto) 0.200 Neut % (Auto) 76.5 H Lymph % (Auto) 14.0 L [place] % (Auto) 6.9 Eos % (Auto) 2.2 Baso % (Auto) 0.2 Absolute Neuts (auto) 3.8 Absolute Lymphs (auto) 0.69 L Nucleated RBC % 0 Sodium 141 Potassium 3.6 Chloride 104 Carbon Dioxide 34.0 H Anion Gap 3 L BUN 13 Creatinine 1.11 Est GFR (MDRD) Af Amer 84 Est GFR (MDRD) Non-Af 69 BUN/Creatinine Ratio 11.7 Glucose 193 H Calcium 8.3 L Troponin I High Sens 18 20 B-Natriuretic Peptide 105.2 H Radiography Diagnostic Testing: Clinical Impression(s) from Imaging Studies Chest X-Ray 10/01/22 15:40 IMPRESSION: No definite acute chest disease. Electronically Signed: Richard Dow MD at 16:51 EDT , Discharge Plan Triage Chief Complaint: Chest Pain ED Provider: Elliot Rosario Dx/Rx/DC Orders Clinical Impression: Chest pain, COPD (chronic obstructive pulmonary disease), Peripheral edema Instructions: ED Chest Pain, Uncertain Cause, ED Peripheral Edema, Bilateral Prescriptions: No Action clopidogrel [Plavix] 75 mg tablet 75 mg PO DAILY diclofenac sodium 1 % kit 2 g topical BID Rx Instructions: apply to single elbow, wrist or hand; for hand includes palm/fingers/back of hand atorvastatin 80 MG tablet 80 mg PO QHS aspirin 81 MG tablet 81 mg PO DAILY finasteride 5 MG tablet 5 mg PO DAILY escitalopram oxalate 10 MG tablet 10 mg PO DAILY cholecalciferol (vitamin D3) [Vitamin D3] 1,000 UNIT tablet 3,000 units PO DAILY Humulin R U-500 (Conc) Kwikpen 500 UNIT/ML insulin pen 115 unit SQ BID nitroglycerin 0.4 MG tablet, sublingual 0.4 mg sublingual Q5M PRN (Reason: Chest Pain) Qty: 30 0RF pantoprazole 40 MG tablet 40 mg PO BID carvedilol 25 MG tablet 25 mg PO BID ranolazine 500 mg Tablet Extended Release 12 Hr 500 mg PO Q12H tamsulosin 0.4 MG capsule 0.4 mg PO QHS glucose 4 gram Tablet,Chewable 16 g PO Q15M PRN (Reason: Hypoglycemia) magnesium oxide 420 mg Tablet 420 mg PO BID ketoconazole 2 % Shampoo 1 applic TOPICAL DAILY albuterol sulfate 2.5 mg /3 mL (0.083 %) Solution For Nebulization 2.5 mg INHALATION Q6H PRN (Reason: Shortness Of Breath Or Wheezing) guaifenesin 100 mg/5 mL Liquid 200 mg PO TID PRN (Reason: Cough) multivitamin with minerals Tablet 1 tab PO DAILY ferrous sulfate 325 mg (65 mg iron) tablet 325 mg PO BID acetaminophen [Tylenol] 325 MG tablet 650 mg PO Q8H PRN PRN (Reason: Pain) Qty: 30 0RF spironolactone [Aldactone] 25 mg tablet 25 mg PO DAILY furosemide [Lasix] 40 mg tablet 40 mg PO QAM PRN (Reason: edema) 1 Days Qty: 30 0RF Primary Care Provider: [facility] Referrals: [place] [Primary Care Provider] - 3-5 Days Activity Restrictions/Additional Instructions: Your cardiac work-up negative. Troponin negative x2. BNP 105. Chest x-ray no pleural effusion. Your creatinine is 1.11. For your leg swelling restart your water pill daily for the next 5 days. Follow-up with your doctors for reevaluation. Return if worse symptoms. Disposition Disposition: Home, Self Care Discharge Date/Time: 10/01/22 20:17
[2022-10-01] MEDS: Morphine 4 MG/ML Syringe IV ×2 (16:43→17:43)
[2022-10-01 16:46] LABS: Anion Gap 3 (5-15); BUN 13 mg/dL (7-18); BUN/Creat Ratio 11.7 RATIO (10-20); Calcium,Total 8.3 mg/dL (8.5-10.1); Chloride 104 mmol/L (98-107); Creatinine, Serum 1.11 mg/dL (0.70-1.30); EST Glomerular Filtration Rate 69 mL/min (>60); Est Glom Filt Rate - Afr Amer 84 mL/min (>60); Glucose 193 mg/dL (74-106); Potassium 3.6 mmol/L (3.5-5.1); Sodium Level 141 mmol/L (136-145); Troponin-I HS (w/2H Reflex) 18 pg/mL (3.0-78.0)
[2022-10-01 17:19] LABS: BNP,B-Type NATRIURETIC PEPTIDE 105.2 pg/mL (0-100)
[2022-10-01 18:07] LABS: Reflex Troponin-HS? (from REC) Y
[2022-10-01 19:22] LABS: Troponin-I HS 20 pg/mL (3.0-78.0)
== END 2022-10-01 20:17 | disposition home or self-care (01) ==
PROVIDERS: Emergency Provider Emergency Medicine; Visit Provider Emergency Medicine
DX: R07.9 Chest pain, unspecified (principal); J44.9 Chronic obstructive pulmonary disease, unspecified; I11.0 Hypertensive heart disease with heart failure; I50.9 Heart failure, unspecified; E11.9 Type 2 diabetes mellitus without complications; Z79.4 Long term (current) use of insulin; I25.10 Atherosclerotic heart disease of native coronary artery without angina pectoris; E78.00 Pure hypercholesterolemia, unspecified; Z87.891 Personal history of nicotine dependence; Z95.0 Presence of cardiac pacemaker; Z99.81 Dependence on supplemental oxygen; I25.2 Old myocardial infarction; Z86.73 Personal history of transient ischemic attack (TIA), and cerebral infarction without residual deficits; Z79.82 Long term (current) use of aspirin; Z79.899 Other long term (current) drug therapy; Z79.02 Long term (current) use of antithrombotics/antiplatelets; Z90.49 Acquired absence of other specified parts of digestive tract; Z95.5 Presence of coronary angioplasty implant and graft; Z96.652 Presence of left artificial knee joint; R60.9 Edema, unspecified
CPT/HCPCS: 71045; 80048; 83880; 84484; 85025; 93005; 96374; 96376; 99283; J7040; A4216

== ENCOUNTER 2022-10-10 09:38 | Emergency (ER) | payer OTHER, SELFPAY ==
[2022-10-10 09:41] VITALS: BP 190/76; PULSE 79; RESP 22; TEMP 36.1; O2SAT 94; BMI 37.0
[2022-10-10 09:45] VITALS: BP 190/76; PULSE 75; RESP 22; TEMP 36; O2SAT 95
[2022-10-10 09:46] VITALS: O2SAT 95
--- NOTE | 2022-10-10 10:11 | ED.VIS.DYS ---
HPI History of Present Illness Chief Complaint: Shortness of Breath Detail of Chief Complaint: Shortness of breath and chest pain Informant: patient Onset/Context/Timing Onset: Yesterday Context: unknown Timing: Continuous Quality: Positive for Dyspnea on exertion; Negative for Orthopnea, PND or Wheezing Current Severity: Mild Maximum Severity: Severe Worsened by: Exertion and Coughing; Not Worsened By Lying flat Relieved by: Nothing Associated Symptoms cough, rhinorrhea and other; Negative for post nasal drip, ear pain, fever, sore throat, subjective, chills, sweats, clear sputum, white sputum, yellow sputum or green sputum Chest Pain: Positive for Continuous and Dull Narrative Narrative: Patient is a 72-year-old male with multiple medical problems which include coronary disease, diabetes, hypercholesterolemia, hypertension, COPD, prior stroke with dysarthria who is on oxygen at 3 L via nasal cannula and presents with shortness of breath that started yesterday. He has shortness of breath that rest and has increased shortness of breath with activity. He denies orthopnea. He states he sleeps flat in his bed with 1 pillow. He denies fever or chills. He denies headache. He denies visual, ocular auditory symptoms. He does endorse nasal congestion. Denies postnasal drainage sore throat. He does endorse slight cough. Cough is nonproductive. He denies pleuritic pain. Nothing makes the pain better or worse. The pain goes from the anterior right to left chest. Described as a dull discomfort. There is no associated symptoms or radiation. He denies abdominal pain, he denies nausea, vomit diarrhea. He denies intolerance to food. Based on medication he has a history of reflux or peptic ulcer disease. He does endorse swelling of his legs, which chronic. PE Risk Factors: Negative for Cancer, OCP + Smoking + > 35, Prior DVT or PE, Recent immobilization, Recent surgery or Recent travel Prior similar symptoms: Yes Recent Illness/Hospitalization: No PFSH PFS Medical History Abnormal EKG Anemia Atherosclerotic heart disease citizen [place] coronary artery w/angina pectoris BiPAP (biphasic positive airway pressure) dependence CAD (coronary artery disease) Chest pain Chronic hyperglycemia Chronic respiratory failure Congestive heart failure (CHF) Conversion reaction COPD (chronic obstructive pulmonary disease) Diabetes DM type 2 (diabetes mellitus, type 2) Dysarthria Essential (primary) hypertension Former smoker Heart failure Hemiparesis, left History of fractured rib History of TIAs Hyperlipidemia Myocardial infarct Obesity On home oxygen therapy EKATERINA (obstructive sleep apnea) Pacemaker Pacemaker battery depletion Pulmonary embolism Sick sinus syndrome Stroke/cerebrovascular accident Wears hearing aid in both ears Home Medications aspirin 81 mg tablet,delayed release 81 mg PO DAILY HEART HEALTH 06/11/18 [History Last Taken 04/14/22] atorvastatin 80 mg tablet 80 mg PO QHS cholesterol 06/11/18 [History Last Taken 09/09/22] cholecalciferol (vitamin D3) 25 mcg (1,000 unit) tablet (Vitamin D3) 3,000 units PO DAILY supplement 06/11/18 [History Last Taken 04/14/22] escitalopram oxalate 10 mg tablet 10 mg PO DAILY depression 06/11/18 [History Last Taken 04/14/22] finasteride 5 mg tablet 5 mg PO DAILY prostate 06/11/18 [History Last Taken 04/14/22] insulin regular hum U-500 conc 500 unit/mL(3 mL) subcut pen (Humulin R U-500 (Conc) Insulin Kwikpen) 115 unit SQ BID diabetes 06/11/18 [History Last Taken 09/09/22] nitroglycerin 0.4 mg sublingual tablet 0.4 mg sublingual Q5M PRN Chest Pain #30 TABLETS 07/22/18 [Rx Last Taken 01/17/20] pantoprazole 40 mg tablet,delayed release 40 mg PO BID GERD 05/18/20 [History Last Taken 09/09/22] carvedilol 25 mg tablet 25 mg PO BID blood pressure 06/22/20 [History Last Taken 04/14/22] ranolazine 500 mg tablet,extended release,12 hr 500 mg PO Q12H chest pain 06/22/20 [History Last Taken 04/14/22] tamsulosin 0.4 mg capsule 0.4 mg PO QHS PROSTATE 08/10/20 [History Last Taken 09/09/22] clopidogrel 75 mg tablet (Plavix) 75 mg PO DAILY blood thinner 01/07/21 [History Last Taken 04/14/22] glucose 4 gram chewable tablet 16 g PO Q15M PRN Hypoglycemia 08/17/21 [History Last Taken Unknown] albuterol sulfate 2.5 mg/3 mL (0.083 %) solution for nebulization 2.5 mg inhalation Q6H PRN Shortness Of Breath Or Wheezing 12/12/21 [History Last Taken 09/09/22] ferrous sulfate 325 mg (65 mg iron) tablet 325 mg PO BID SUPPLEMENT 12/12/21 [History Last Taken 04/14/22] guaifenesin 100 mg/5 mL oral liquid 200 mg PO TID PRN Cough 12/12/21 [History Last Taken 1 Week Ago ~12/05/21] ketoconazole 2 % shampoo 1 applic topical DAILY dry scalp 12/12/21 [History Last Taken 04/14/22] magnesium oxide 420 mg tablet 420 mg PO BID SUPPLEMENT 12/12/21 [History Last Taken 09/09/22] multivitamin with minerals 1 tab PO DAILY SUPPLEMENT 12/12/21 [History Last Taken 09/09/22] acetaminophen 325 mg tablet (Tylenol) 650 mg (2 x 325 mg) PO Q8H PRN PRN Pain #30 tabs 04/17/22 [Rx Last Taken 12/11/21] diclofenac sodium 1 % gel topical kit 2 g topical BID unsure 08/06/22 [History Last Taken Unknown] spironolactone 25 mg tablet (Aldactone) 25 mg PO DAILY blood pressure 09/10/22 [History Last Taken 09/09/22] furosemide 40 mg tablet (Lasix) 40 mg PO QAM PRN edema 1 day #30 tabs 09/12/22 [Rx Last Taken 09/08/22] prednisone 20 mg tablet 60 mg (3 x 20 mg) PO DAILY #12 TABLETS 10/10/22 [Rx Last Taken Unknown] Allergy/AdvReac Type Severity Reaction Status Date / Time ezetimibe Allergy Unknown Verified 10/01/22 15:22 Fish Containing Products Allergy Unknown Verified 10/01/22 15:22 glyburide Allergy Unknown Verified 10/01/22 15:22 isosorbide Allergy PT UNSURE Verified 10/01/22 15:22 OF REACTION lisinopril Allergy Unknown Verified 10/01/22 15:22 metformin Allergy Nausea Verified 10/01/22 15:22 metoprolol Allergy Unknown Verified 10/01/22 15:22 simvastatin Allergy Unknown Verified 10/01/22 15:22 iron AdvReac Mild Vomiting Verified 10/01/22 15:22 gabapentin AdvReac Other Verified 10/01/22 15:22 Family History Father No problems noted. Surgical History H/O coronary artery bypass surgery History of cholecystectomy History of coronary artery stent placement History of knee replacement procedure of left knee History of permanent cardiac pacemaker placement (01/14/21) Social History household members: spouse Smoking Status: Former smoker details: Unknown substance use type: does not use ROS ROS ED Review of Systems ROS Unobtainable: due to mental status Constitutional Constitutional ED: Denies chills, fever(s) or sweats Eyes Eyes: Denies blurry vision, change in vision or diplopia ENT ENT ED: Denies ear pain, rhinorrhea or sore throat Cardiovascular Cardiovascular: Reports chest pain; Denies orthopnea, palpitations, paroxysmal nocturnal dyspnea or racing heartbeat Respiratory/Chest Respiratory/Chest: Reports cough, dyspnea and dyspnea on exertion; Denies orthopnea, paroxysmal nocturnal dyspnea or sputum Gastrointestinal Gastrointestinal: Denies abdominal pain, melena, nausea or vomiting Genitourinary Genitourinary ED: Denies dysuria, hematuria or urinary frequency Musculoskeletal Musculoskeletal: Denies arthralgias, back pain or myalgias Integumentary Denies rash Neurologic Neurologic: Denies headache(s) or paresthesias Psychiatric Psychiatric: Reports depression; Denies anxiety Endocrine Endocrinology: Denies cold intolerance or heat intolerance Hematologic/Lymphatic Hematologic/Lymphatic: Denies easy bleeding or easy bruising EXAM Physical Exam Const Vital Signs: 10/10/22 09:41 10/10/22 09:45 10/10/22 09:46 Temperature 96.9 F L 96.8 F L Temperature Source Temporal Temporal Pulse Rate 79 75 Respiratory Rate 22 H 22 H Respiratory Effort Short of Breath Respiratory Depth Shallow Respiratory Pattern Tachypnea Blood Pressure 190/76 H 190/76 H Blood Pressure Mean 114 114 Pulse Ox 94 95 Oxygen Delivery Method Nasal Cannula Nasal Cannula Nasal Cannula Oxygen Flow Rate (L/min) 3 3 3 10/10/22 11:21 Temperature Temperature Source Pulse Rate 66 Respiratory Rate 18 Respiratory Effort Respiratory Depth Respiratory Pattern Normal Blood Pressure Blood Pressure Mean Pulse Ox Oxygen Delivery Method Oxygen Flow Rate (L/min) Positive well nourished, well developed and obese Constitutional Narrative: Patient is holding his chest. He is slightly tachypneic. He has problems with phonation and there is slurring of his words. General Appearance ED: well developed; Negative for NAD or pallor Nutritional Appearance: obese HEENT Reports TM's clear and dry mucous membranes HEENT Narrative: Nares patent. There is no discharge. Unable to see uvula. Tongue appears large. atraumatic; Negative for tenderness Tympanic Membrane ED: Yes TM's clear Mouth ED: Yes dry mucous membranes Mouth: dry mucous membranes Eyes PERRL and EOMs intact bilaterally General Eye ED: Negative for pale conjunctiva or scleral icterus Neck no lymphadenopathy, supple, no meningeal signs and no JVD Neck Narrative: Trachea is midline. There is no inspiratory stridor. Neck exam is limited the fact that he has a full mike and he is obese Resp normal respiratory effort and clear to auscultation bilaterally Resp Narrative: Breath sounds are diminished right side compared to left. There is a well-healed median sternotomy scar noted. Cardio regular rate, regular rhythm, S1 normal heart sound, S2 normal heart sound and no murmurs GI non-tender, non-distended and no masses Auscultation: hypoactive bowel sounds Palpation: soft; Negative for tender, guarding, hepatomegaly, splenomegaly or mass Back/Spine no CVA tenderness Back/Spine Narrative: Inspection of the back is unremarkable. Extremity Negative for normal to inspection Extremity Narrative: Pitting edema bilateral. Legs are symmetric. There is no discoloration. There is no leg vein distention, palpable cords tenderness on the distribution deep venous system. General Extremety ED: Yes edema; Negative for tenderness or other findings General Extremity: edema; Negative for other findings Neuro oriented x3, CN's II-XII intact bilaterally and no sensory deficits noted [place] Coma Scale: document GCS findings Spontaneous Obeys Commands Oriented 15 Sensorium / Orientation: alert Psych mental status grossly normal Skin no wounds General Skin Exam: Negative for jaundice or pallor MDM MDM MDM Narrative Medical decision making narrative: With patient having shortness of breath history COPD congestive heart failure coronary disease need to rule out cardiac ischemia, CHF, COPD, pneumothorax. Will obtain chest x-ray. Also obtain EKG and troponin since his complaint of chest pain. Because of the enlarged tongue and difficulty with phonation will obtain soft tissue of the neck to assess for any prevertebral soft tissue swelling enlarged tonsils etc. CBC was obtained to assess white count differential as well as H&H. Since patient has normal white count does not have a productive cough he was not placed on antibiotics. He was treated with prednisone. Patient was informed this will elevate his blood sugar. Lab Data Attestation: I reviewed the patient's lab results. Lab results narrative: CBC reveals slight increase in hemoglobin from baseline. Basic metabolic panel reveals an elevated BUN to creatinine ratio of 25:1 which would support him being dehydrated. Transaminases normal. First troponin is normal at 32. Labs: Laboratory Results - last 24 hr 10/10/22 09:45 WBC 5.3 RBC 3.97 L Hgb 13.2 Hct 39.2 L MCV 98.7 H MCH 33.2 H MCHC 33.7 RDW Std Deviation 47.8 H RDW Coeff of Cinda 13.4 Plt Count 134 L MPV 11.0 Immature Gran % (Auto) 0.800 Neut % (Auto) 73.8 H Lymph % (Auto) 17.2 L [place] % (Auto) 5.5 Eos % (Auto) 2.3 Baso % (Auto) 0.4 Absolute Neuts (auto) 3.9 Absolute Lymphs (auto) 0.91 Nucleated RBC % 0 Sodium 141 Potassium 3.6 Chloride 104 Carbon Dioxide 34.0 H Anion Gap 3 L BUN 20 H Creatinine 0.83 Estim Creat Clear Calc 83.07 Est GFR (MDRD) Af Amer 118 Est GFR (MDRD) Non-Af 97 BUN/Creatinine Ratio 24.2 H Glucose 220 H Calcium 8.6 Total Bilirubin 0.80 AST 27 ALT 37 Alkaline Phosphatase 94 Troponin I High Sens 32 Total Protein 7.4 Albumin 3.7 Globulin 3.7 Albumin/Globulin Ratio 1.0 Radiography Chest X-Ray - ED: 1 View (Single view port x-ray reveals chronic changes. Limited story volume. Cardiomegaly. Prior rib fracture with hardware noted. There is no acute changes compared to prior. There is independent reviewed interpreted by me.), 2 View (2 view soft tissue x-ray of the neck reveals no narrowing of the airway. The epiglottis appears normal. There is no sublingual tonsil enlargement. There is no prevertebral soft tissue swelling noted. The tongue appears prominent. This is dependently reviewed interpreted by me. Of note patient ) and Read by ED Physician Diagnostic Testing: Clinical Impression(s) from Imaging Studies Chest X-Ray 10/10/22 10:15 IMPRESSION: Stable chest with no new or acute finding. Electronically Signed: Rcih Alvarez MD at 10:29 EDT , Soft Tissue Neck X-Ray 10/10/22 10:15 IMPRESSION: Thickening of the tongue. No acute finding. Electronically Signed: Rich Alvarez MD at 10:30 EDT , Rhythm Strip Rhythm Strip: Paced rhythm appears to be atrial sensed. Rate: 68 EKG Initial EKG: Attestation: I personally reviewed and interpreted this EKG as follows: Interpretation: Paced (Atrial sensed ventricular pacemaker with a rate of 66. [place] interval 278 ms. Cures duration 200 ms. QT duration is 504 ms and axis is to the left.) Treatment and Re-Evaluation :: Approximately 24 hours of pain normal troponin and atypical pain with no ischemic changes on EKG patient was discharged home with chest pain of unknown etiology. He was able to drink without drooling. He is now on an RAMIREZ inhibitor or new diabetic med. Comments:: Patient was reevaluated at 1219. Patient is moving more air. There may be a slight wheeze noted now. Plan is burst of prednisone. 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 states she canceled appointment he had with Dr. Schmidt for today. Discharge Plan Triage Chief Complaint: Shortness of Breath ED Provider: Yadiel Guzman Dx/Rx/DC Orders Clinical Impression: Dyspnea, Chronic hypoxemic respiratory failure, EKATERINA (obstructive sleep apnea), Anterior chest wall pain, Acute bronchospasm, Acute exacerbation of chronic obstructive pulmonary disease Instructions: ED COPD Flare Prescriptions: New prednisone 20 mg tablet 60 mg PO DAILY Qty: 12 0RF No Action clopidogrel [Plavix] 75 mg tablet 75 mg PO DAILY diclofenac sodium 1 % kit 2 g topical BID Rx Instructions: apply to single elbow, wrist or hand; for hand includes palm/fingers/back of hand atorvastatin 80 MG tablet 80 mg PO QHS aspirin 81 MG tablet 81 mg PO DAILY finasteride 5 MG tablet 5 mg PO DAILY escitalopram oxalate 10 MG tablet 10 mg PO DAILY cholecalciferol (vitamin D3) [Vitamin D3] 1,000 UNIT tablet 3,000 units PO DAILY Humulin R U-500 (Conc) Kwikpen 500 UNIT/ML insulin pen 115 unit SQ BID nitroglycerin 0.4 MG tablet, sublingual 0.4 mg sublingual Q5M PRN (Reason: Chest Pain) Qty: 30 0RF pantoprazole 40 MG tablet 40 mg PO BID carvedilol 25 MG tablet 25 mg PO BID ranolazine 500 mg Tablet Extended Release 12 Hr 500 mg PO Q12H tamsulosin 0.4 MG capsule 0.4 mg PO QHS glucose 4 gram Tablet,Chewable 16 g PO Q15M PRN (Reason: Hypoglycemia) magnesium oxide 420 mg Tablet 420 mg PO BID ketoconazole 2 % Shampoo 1 applic TOPICAL DAILY albuterol sulfate 2.5 mg /3 mL (0.083 %) Solution For Nebulization 2.5 mg INHALATION Q6H PRN (Reason: Shortness Of Breath Or Wheezing) guaifenesin 100 mg/5 mL Liquid 200 mg PO TID PRN (Reason: Cough) multivitamin with minerals Tablet 1 tab PO DAILY ferrous sulfate 325 mg (65 mg iron) tablet 325 mg PO BID acetaminophen [Tylenol] 325 MG tablet 650 mg PO Q8H PRN PRN (Reason: Pain) Qty: 30 0RF spironolactone [Aldactone] 25 mg tablet 25 mg PO DAILY furosemide [Lasix] 40 mg tablet 40 mg PO QAM PRN (Reason: edema) 1 Days Qty: 30 0RF [facility] Provider: [facility] Referrals: Xavi Schmidt DO [Med Staff - Active Staff] - 5-7 Days [facility] [Primary Care Provider] - Disposition Disposition: Home, Self Care
--- NOTE | 2022-10-10 10:15 | RAD_ITS ---
STUDY: X-RAY - SOFT TISSUE NECK REASON FOR EXAM: Male, 72 years old. Dysphonia, swollen tongue. TECHNIQUE: 2 view(s) of the neck were obtained. COMPARISON: None. FINDINGS: Normal visualized nasopharynx, oropharynx, hypopharynx. Normal epiglottis. Normal visualized subglottic tracheal air column. Normal prevertebral soft tissue structures. Osteopenia with moderate cervical spondylosis. Minimal thickening of the tongue distally. RAD/Neck for Soft Tissue IMPRESSION: Thickening of the tongue. No acute finding. Electronically Signed: Rich Alvarez MD at 10:30 EDT ,
--- NOTE | 2022-10-10 10:15 | RAD_ITS ---
STUDY: X-RAY CHEST REASON FOR EXAM: Male, 72 years old. Dyspnea. TECHNIQUE: Single frontal view of the chest. COMPARISON: Chest dated October 01, 2022. FINDINGS: Cardiomegaly, sternotomy wires, dual lead cardiac pacer, aortic tortuosity, low volume inspiration, diffuse interstitial pattern, loss of volume of the left lower lobe with scarring and fixation of multiple left rib fractures with thickening at the sites., No new or acute finding. No abnormality of the visualized soft tissue structures of the upper abdomen. RAD/Chest 1 View (Portable) IMPRESSION: Stable chest with no new or acute finding. Electronically Signed: Rich Alvarez MD at 10:29 EDT ,
[2022-10-10 10:30] LABS: Absolute Lymphocyte Count 0.91 X10^3/uL (0.83-4.51); Absolute Neutrophil Count 3.9 X10^3/uL (2.0-7.7); Basophil# 0.02 X10^3/uL; Basophil% 0.4 % (0-1); Eosinophil# 0.12 X10^3/uL; Eosinophils% 2.3 % (0-5); Hematocrit 39.2 % (40-54); Hemoglobin 13.2 g/dL (13.0-16.5); Lymphocyte # 0.91 X10^3/ul (0.83-4.51); Lymphocyte % 17.2 % (19-41); Mean Corp Hgb Conc 33.7 g/dL (32-36); Mean Corpuscular Hgb 33.2 pg (27.0-32.0); Mean Corpuscular Volume 98.7 fL (80-94); Monocyte# 0.29 X10^3/uL; Monocyte% 5.5 % (0-10); NRBC Flagged by Analyzer 0 % (0-5); Neutrophil # 3.92 X10^3/uL (2.7-7.7); Neutrophil % 73.8 % (47-70); Platelet Count 134 K/mm3 (150-450); RBC Distribution Width CV 13.4 % (11.6-14.6); RBC Distribution Width SD 47.8 fl (35.1-43.9); Red Blood Count 3.97 M/mm3 (4.6-6.2); White Blood Count 5.3 K/mm3 (4.4-11.0)
[2022-10-10 10:40] LABS: AST(SGOT) 27 U/L (15-37); Alanine Aminotransfer ALT/SGPT 37 U/L (16-61); Albumin, Serum 3.7 g/dL (3.2-5.0); Alkaline Phosphatase 94 U/L (45-117); Anion Gap 3 (5-15); BUN 20 mg/dL (7-18); BUN/Creat Ratio 24.2 RATIO (10-20); Calcium,Total 8.6 mg/dL (8.5-10.1); Chloride 104 mmol/L (98-107); Creatinine, Serum 0.83 mg/dL (0.70-1.30); EST Glomerular Filtration Rate 97 mL/min (>60); Est Glom Filt Rate - Afr Amer 118 mL/min (>60); Estimated Creatinine Clearance 83.07 ml/min; Globulin 3.7 g/dL (2.2-4.2); Glucose 220 mg/dL (74-106); Potassium 3.6 mmol/L (3.5-5.1); Protein, Total 7.4 g/dL (6.4-8.2); Sodium Level 141 mmol/L (136-145); Troponin-I HS (w/2H Reflex) 32 pg/mL (3.0-78.0)
[2022-10-10] MEDS: Morphine 2 MG/ML Syringe IV (11:12)
[2022-10-10 11:21] VITALS: PULSE 66; RESP 18
[2022-10-10] MEDS: Ipratropium/Albuterol Sulfate 3 ML AMPUL.NEB INHALATION (11:21)
[2022-10-10 12:13] LABS: Reflex Troponin-HS? (from REC) Y
[2022-10-10 12:35] VITALS: BP 173/85; PULSE 68; RESP 15; O2SAT 93
[2022-10-10] MEDS: predniSONE 20 MG Tablet 60 MG PO (12:40)
== END 2022-10-10 12:41 | disposition home or self-care (01) ==
PROVIDERS: Emergency Provider Emergency Medicine; Visit Provider Emergency Medicine
DX: J96.11 Chronic respiratory failure with hypoxia (principal); J44.1 Chronic obstructive pulmonary disease with (acute) exacerbation; I11.0 Hypertensive heart disease with heart failure; I50.9 Heart failure, unspecified; E11.9 Type 2 diabetes mellitus without complications; Z79.4 Long term (current) use of insulin; G47.33 Obstructive sleep apnea (adult) (pediatric); R07.89 Other chest pain; E78.00 Pure hypercholesterolemia, unspecified; Z87.891 Personal history of nicotine dependence; J98.01 Acute bronchospasm; I25.10 Atherosclerotic heart disease of native coronary artery without angina pectoris; Z86.73 Personal history of transient ischemic attack (TIA), and cerebral infarction without residual deficits; Z99.81 Dependence on supplemental oxygen; Z95.0 Presence of cardiac pacemaker; I25.2 Old myocardial infarction; Z79.899 Other long term (current) drug therapy; Z79.82 Long term (current) use of aspirin; Z79.02 Long term (current) use of antithrombotics/antiplatelets; Z90.49 Acquired absence of other specified parts of digestive tract; Z95.5 Presence of coronary angioplasty implant and graft; Z96.652 Presence of left artificial knee joint
CPT/HCPCS: 70360; 71045; 80053; 84484; 85025; 93005; 94640; 96374; 99284; A4216

== ENCOUNTER 2022-11-02 11:06 | Emergency (ER) | payer OTHER, SELFPAY ==
[2022-11-02 11:08] VITALS: BP 147/59; PULSE 71; RESP 20; TEMP 36.6; BMI 35.2
[2022-11-02 11:50] VITALS: BP 128/68; PULSE 65; RESP 20; O2SAT 99
--- NOTE | 2022-11-02 11:59 | EKG12_ITS ---
Test Reason : CP Blood Pressure : / mmHG Vent. Rate : 064 BPM Atrial Rate : 067 BPM P-R Int : 196 ms QRS Dur : 198 ms QT Int : 526 ms P-R-T Axes : -69 -59 130 degrees QTc Int : 542 ms AV dual-paced rhythm with premature ventricular or aberrantly conducted complexes Abnormal ECG Confirmed by BRYN GUALLPA, JULIO C ([id number]), editor in chief KENDALL ROCHE ([id number]) on 11/04/2022 1:50:16 PM Referred By: Confirmed By:BELEN CLEMENTE MD
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
[2022-11-02 12:04] VITALS: O2SAT 97
[2022-11-02] MEDS: oxyCODONE 5 MG Tablet PO (12:04)
--- NOTE | 2022-11-02 12:31 | RAD_ITS ---
STUDY: X-RAY CHEST REASON FOR EXAM: Male, 72 years old. Pain TECHNIQUE: Single AP portable view of the chest. COMPARISON: 10/10/2022 FINDINGS: EKG leads overlie the chest. Stable appearance of a left subclavian pacemaker Lungs are expanded with chronic interstitial changes, no superimposed acute pulmonary process. Sternal cerclage wires and vascular clips are present from a prior sternotomy and coronary artery bypass graft procedure (CABG). Normal mediastinum and cata. Normal visualized pulmonary arteries. Normal visualized aortic arch and descending thoracic aorta. There are diffuse degenerative changes of the visualized thoracic spine. Old healed rib fractures, multiple plates attached to left-sided ribs from previous surgery There is no demonstrated abnormality of the visualized soft tissue structures of the upper abdomen. RAD/Chest PA and Lateral IMPRESSION: Chronic interstitial changes, no superimposed acute pulmonary process Electronically Signed: Ernie Gates MD at 13:06 EDT ,
[2022-11-02] MEDS: Morphine 4 MG/ML Syringe IV (13:00)
[2022-11-02 13:08] VITALS: BP 144/79; PULSE 60; RESP 18; O2SAT 95
[2022-11-02 13:42] VITALS: BP 154/84; PULSE 60; RESP 21; O2SAT 96
== END 2022-11-02 14:01 | disposition home or self-care (01) ==
PROVIDERS: Emergency Provider Emergency Medicine; Visit Provider Emergency Medicine
DX: R07.89 Other chest pain (principal); J44.9 Chronic obstructive pulmonary disease, unspecified; I11.0 Hypertensive heart disease with heart failure; I50.9 Heart failure, unspecified; E11.9 Type 2 diabetes mellitus without complications; Z79.4 Long term (current) use of insulin; S16.1XXA Strain of muscle, fascia and tendon at neck level, initial encounter; E78.5 Hyperlipidemia, unspecified; I25.10 Atherosclerotic heart disease of native coronary artery without angina pectoris; Z87.891 Personal history of nicotine dependence; Z95.1 Presence of aortocoronary bypass graft; Z79.02 Long term (current) use of antithrombotics/antiplatelets; Z79.82 Long term (current) use of aspirin; Z99.81 Dependence on supplemental oxygen; Z95.0 Presence of cardiac pacemaker; Z86.73 Personal history of transient ischemic attack (TIA), and cerebral infarction without residual deficits; I25.2 Old myocardial infarction; Z79.899 Other long term (current) drug therapy; K21.9 Gastro-esophageal reflux disease without esophagitis; Z90.49 Acquired absence of other specified parts of digestive tract; Z95.5 Presence of coronary angioplasty implant and graft; Z96.652 Presence of left artificial knee joint; V49.50XA Passenger injured in collision with unspecified motor vehicles in traffic accident, initial encounter
CPT/HCPCS: 71046; 93005; 96374; 99285; A4216

== ENCOUNTER 2022-11-10 15:20 | Emergency (ER) | payer OTHER, SELFPAY ==
[2022-11-10] VITALS (7 sets, daily range): BP systolic 124–152; BP diastolic 78–86; PULSE 58–62; RESP 17–23; TEMP 35.9–36.6; O2SAT 97–100; BMI 34.8
--- NOTE | 2022-11-10 15:39 | ED.VIS.DYS ---
HPI History of Present Illness Chief Complaint: Shortness of Breath [facility] Medical History Abnormal EKG Anemia Atherosclerotic heart disease [place] coronary artery w/angina pectoris BiPAP (biphasic positive airway pressure) dependence CAD (coronary artery disease) Chest pain Chronic hyperglycemia Chronic respiratory failure Congestive heart failure (CHF) Conversion reaction COPD (chronic obstructive pulmonary disease) Diabetes DM type 2 (diabetes mellitus, type 2) Dysarthria Essential (primary) hypertension Former smoker Heart failure Hemiparesis, left History of fractured rib History of TIAs Hyperlipidemia Myocardial infarct Obesity On home oxygen therapy [place] (obstructive sleep apnea) Pacemaker Pacemaker battery depletion Pulmonary embolism Sick sinus syndrome Stroke/cerebrovascular accident Wears hearing aid in both ears Home Medications aspirin 81 mg tablet,delayed release 81 mg PO DAILY HEART HEALTH 06/11/18 [History Last Taken 04/14/22] atorvastatin 80 mg tablet 80 mg PO QHS cholesterol 06/11/18 [History Last Taken 09/09/22] cholecalciferol (vitamin D3) 25 mcg (1,000 unit) tablet (Vitamin D3) 3,000 units PO DAILY supplement 06/11/18 [History Last Taken 04/14/22] escitalopram oxalate 10 mg tablet 10 mg PO DAILY depression 06/11/18 [History Last Taken 04/14/22] finasteride 5 mg tablet 5 mg PO DAILY prostate 06/11/18 [History Last Taken 04/14/22] insulin regular hum U-500 conc 500 unit/mL(3 mL) subcut pen (Humulin R U-500 (Conc) Insulin Kwikpen) 115 unit SQ BID diabetes 06/11/18 [History Last Taken 09/09/22] nitroglycerin 0.4 mg sublingual tablet 0.4 mg sublingual Q5M PRN Chest Pain #30 TABLETS 07/22/18 [Rx Last Taken 01/17/20] pantoprazole 40 mg tablet,delayed release 40 mg PO BID GERD 05/18/20 [History Last Taken 09/09/22] carvedilol 25 mg tablet 25 mg PO BID blood pressure 06/22/20 [History Last Taken 04/14/22] ranolazine 500 mg tablet,extended release,12 hr 500 mg PO Q12H chest pain 06/22/20 [History Last Taken 04/14/22] tamsulosin 0.4 mg capsule 0.4 mg PO QHS PROSTATE 08/10/20 [History Last Taken 09/09/22] clopidogrel 75 mg tablet (Plavix) 75 mg PO DAILY blood thinner 01/07/21 [History Last Taken 04/14/22] glucose 4 gram chewable tablet 16 g PO Q15M PRN Hypoglycemia 08/17/21 [History Last Taken Unknown] albuterol sulfate 2.5 mg/3 mL (0.083 %) solution for nebulization 2.5 mg inhalation Q6H PRN Shortness Of Breath Or Wheezing 12/12/21 [History Last Taken 09/09/22] ferrous sulfate 325 mg (65 mg iron) tablet 325 mg PO BID SUPPLEMENT 12/12/21 [History Last Taken 04/14/22] guaifenesin 100 mg/5 mL oral liquid 200 mg PO TID PRN Cough 12/12/21 [History Last Taken 1 Week Ago ~12/05/21] ketoconazole 2 % shampoo 1 applic topical DAILY dry scalp 12/12/21 [History Last Taken 04/14/22] magnesium oxide 420 mg tablet 420 mg PO BID SUPPLEMENT 12/12/21 [History Last Taken 09/09/22] multivitamin with minerals 1 tab PO DAILY SUPPLEMENT 12/12/21 [History Last Taken 09/09/22] acetaminophen 325 mg tablet (Tylenol) 650 mg (2 x 325 mg) PO Q8H PRN PRN Pain #30 tabs 04/17/22 [Rx Last Taken 12/11/21] diclofenac sodium 1 % gel topical kit 2 g topical BID unsure 08/06/22 [History Last Taken Unknown] spironolactone 25 mg tablet (Aldactone) 25 mg PO DAILY blood pressure 09/10/22 [History Last Taken 09/09/22] furosemide 40 mg tablet (Lasix) 40 mg PO QAM PRN edema 1 day #30 tabs 09/12/22 [Rx Last Taken 09/08/22] prednisone 20 mg tablet 60 mg (3 x 20 mg) PO DAILY #12 TABLETS 10/10/22 [Rx Last Taken Unknown] meloxicam 15 mg tablet 15 mg PO DAILY #14 tabs 11/02/22 [Rx Last Taken Unknown] Allergy/AdvReac Type Severity Reaction Status Date / Time ezetimibe Allergy Unknown Verified 11/10/22 15:21 Fish Containing Products Allergy Unknown Verified 11/10/22 15:21 glyburide Allergy Unknown Verified 11/10/22 15:21 isosorbide Allergy PT UNSURE Verified 11/10/22 15:21 OF REACTION lisinopril Allergy Unknown Verified 11/10/22 15:21 metformin Allergy Nausea Verified 11/10/22 15:21 metoprolol Allergy Unknown Verified 11/10/22 15:21 simvastatin Allergy Unknown Verified 11/10/22 15:21 iron AdvReac Mild Vomiting Verified 11/10/22 15:21 gabapentin AdvReac Other Verified 11/10/22 15:21 Family History Father No problems noted. Surgical History H/O coronary artery bypass surgery History of cholecystectomy History of coronary artery stent placement History of knee replacement procedure of left knee History of permanent cardiac pacemaker placement (01/14/21) Social History household members: spouse Smoking Status: Former smoker details: Unknown substance use type: does not use EXAM Physical Exam Const Vital Signs: 11/10/22 15:21 11/10/22 15:41 11/10/22 15:41 Temperature 96.6 F L Temperature Source Temporal Pulse Rate 58 L 60 Respiratory Rate 18 17 Respiratory Effort Respiratory Depth Respiratory Pattern Blood Pressure 124/80 H 148/86 H Blood Pressure Mean 94 106 Pulse Ox 100 100 Oxygen Delivery Method Room Air Nasal Cannula Nasal Cannula Oxygen Flow Rate (L/min) 3 3 11/10/22 15:41 11/10/22 15:41 11/10/22 15:43 Temperature Temperature Source Pulse Rate Respiratory Rate 17 Respiratory Effort Normal Non-Labored Respiratory Depth Normal Respiratory Pattern Normal Blood Pressure Blood Pressure Mean Pulse Ox 100 99 Oxygen Delivery Method Nasal Cannula Nasal Cannula Nasal Cannula Oxygen Flow Rate (L/min) 3 3 3 11/10/22 16:57 11/10/22 17:46 Temperature 97.8 F Temperature Source Oral Pulse Rate 60 60 Respiratory Rate 21 H 23 H Respiratory Effort Respiratory Depth Respiratory Pattern Blood Pressure 152/80 H 149/83 H Blood Pressure Mean 104 105 Pulse Ox 98 97 Oxygen Delivery Method Nasal Cannula Nasal Cannula Oxygen Flow Rate (L/min) 3 3 MDM MDM MDM Narrative Medical decision making narrative: HISTORY OF PRESENT ILLNESS: 72-year-old male here with shortness of breath. States this began this morning approximately 8 hours ago.. Also notes chest pain that is midsternal rating across the chest. Denies any syncope. Notes nonproductive cough. No sick contacts. No bleeding diathesis. Notes history of a blood clot but otherwise denies recent surgery, chemotherapy, unilateral leg swelling, hemoptysis, estrogen use. Patient denies sudden onset of pain, no tearing sensation, no migratory symptoms, no new numbness, weakness or loss of sensation. Patient denies family history or personal history of Connective tissue disorders (Marfan's Syndrome, Seth Danlos etc). Denies lower extremity edema or swelling of any kind. Denies orthopnea or paroxysmal nocturnal dyspnea. Denies any bleeding diathesis. REVIEW OF SYSTEMS: Pertinent positives: Shortness of breath, chest pain Pertinent negatives: Syncope, focal weakness, abdominal pain, lower extremity edema PHYSICAL EXAM: Nursing triage notes reviewed, Vital signs reviewed Constitutional: please see mdm HENT: MMM Eyes: Pupils equal round and reactive to light, Extraocular muscles intact Neck: No stridor, no JVD, full neck ROM Lungs: Diminished breath sounds, tight lungs, prolonged expiratory phase, rales noted in bilateral bases. Patient saturating well on his baseline 3 L oxygen no increased work of breathing, no conversational dyspnea, no accessory muscle use, no nasal flaring. No respiratory distress noted Heart: Regular rate and rhythm, No murmurs, No rubs and No gallops, 2+ distal pulses (radial, femoral, posterior tibial) in all extremities Abdomen: Soft, there is no tenderness, rigidity, rebound or guarding, no obvious peritoneal signs, no palpable pulsatile abdominal masses, no auscultated abdominal bruit : No CVAT Extremities: No edema Neuro: No focal neurological deficits, cranial nerves II through XII intact, 5/5 strength in all extremities. Intact sensation to light touch in all extremities, 2+ reflexes bilateral patella tendons. Normal gait. No ataxia. Skin: No rash or lesions noted MEDICAL DECISION MAKING: Chief Complaint: Shortness of breath External records reviewed: Last ED visit in October 2022 approximately 1 week ago for acute chest wall pain. Last echocardiogram from 2021 shows ejection fraction 50% Factors affecting care: COPD on 3 L of oxygen, CAD status post stents and CABG and pacemaker, uses home BiPAP, type 2 diabetes, CHF, PE, sick sinus syndrome, CVA Social determinants of health: n former smoker History obtained from others: The patient's Consults: none [facility] Narrative: Patient was initially hemodynamically stable and afebrile. Lung exam with tight lungs, diminished breath sounds and rales bilaterally. There is no respiratory distress no indication for noninvasive or invasive ventilation at this time. I considered the following differential diagnosis: COPD exacerbation, pneumonia, CHF exacerbation, ACS, arrhythmia, anemia, PE, COVID-19. I obtained a broad lab and imaging work-up to further elucidate the etiology of the patient's complaints. He was given Toradol, aspirin for pain control. He was then given Tylenol. ALL IMAGES (IF OBTAINED) HAVE BEEN PERSONALLY REVIEWED AND INTERPRETED BY MYSELF. CBC without leukocytosis, no anemia, mild thrombocytopenia EKG with AV dual paced rhythm, prolonged QT interval, left axis deviation, occasional PVCs, no significant changes from EKG on November 02, 2022 BMP without evidence of significant electrolyte abnormalities, no anion gap, no acute kidney injury. Chest x-ray by my read shows evidence of cardiomegaly, no obvious evidence of worsening pulmonary edema, COPD or pneumonia from prior x-ray COVID-19 negative Troponin is negative, no evidence of myocardial ischemia x2 The amalgamation of the patient's lab and imaging work-up suggest no evidence of ACS, pneumonia, COPD exacerbation, dehydration, anemia, arrhythmia, infection such as COVID-19. Patient's heart score is 5 which makes him high risk. Although his high-sensitivity troponin values were negative which suggests he is low risk for in the next 90 days discussed his risk. Discussed risk of hospitalization versus discharge. 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 Patient was alert and oriented x3 at the time of this evaluation. He had capacity to make his own medical decisions. He chose to be discharged home in the presence of his . He was discharged stable condition. The patient and/or family, caregivers express understanding. The patient and/or family, caregivers agrees with the plan. Shared decision making: I will have a discussion with the patient and or visitors regarding risk/benefits of further testing or admission. They will be made aware of of the risk/benefits inherent in this decision they will be given the opportunity to voice understanding. Total critical care time today provided was at least 0 [] minutes. This excludes separately billable procedures. Critical care time (if documented) is secondary to the patient having high probability of clinically significant/life threatening deterioration in the patient's condition which required my urgent intervention. Impression: 1. Dyspnea 2. Chest pain 3. Thrombocytopenia 4. History of CAD 5. History of COPD 6. Poorly controlled type II diabetes Dispo: Discharge Lab Data Labs: Laboratory Results - last 24 hr 11/10/22 11/10/22 15:30 18:50 WBC 4.7 RBC 4.14 L Hgb 13.1 Hct 39.7 L MCV 95.9 H MCH 31.6 MCHC 33.0 RDW Std Deviation 44.3 H RDW Coeff of Cinda 12.9 Plt Count 143 L MPV 10.7 Immature Gran % (Auto) 0.200 Neut % (Auto) 71.1 H Lymph % (Auto) 19.0 [place] % (Auto) 7.0 Eos % (Auto) 2.3 Baso % (Auto) 0.4 Absolute Neuts (auto) 3.3 Absolute Lymphs (auto) 0.89 Nucleated RBC % 0 Sodium 138 Potassium 4.2 Chloride 100 Carbon Dioxide 35.0 H Anion Gap 3 L BUN 18 Creatinine 0.94 Estim Creat Clear Calc 73.35 Est GFR (MDRD) Af Amer 102 Est GFR (MDRD) Non-Af 84 BUN/Creatinine Ratio 19.2 Glucose 192 H Calcium 8.5 Troponin I High Sens 28 30 B-Natriuretic Peptide 159.0 H Radiography Diagnostic Testing: Clinical Impression(s) from Imaging Studies Chest X-Ray 11/10/22 15:54 IMPRESSION: Mild cardiomegaly. Electronically Signed: Ever Raines DO at 16:51 EDT Reading Location ID and State: [facility] / [place] Tel [phone], Service support , Discharge Plan Triage Chief Complaint: Shortness of Breath ED Provider: Erick Frankel Dx/Rx/DC Orders Prescriptions: No Action clopidogrel [Plavix] 75 mg tablet 75 mg PO DAILY diclofenac sodium 1 % kit 2 g topical BID Rx Instructions: apply to single elbow, wrist or hand; for hand includes palm/fingers/back of hand atorvastatin 80 MG tablet 80 mg PO QHS aspirin 81 MG tablet 81 mg PO DAILY finasteride 5 MG tablet 5 mg PO DAILY escitalopram oxalate 10 MG tablet 10 mg PO DAILY cholecalciferol (vitamin D3) [Vitamin D3] 1,000 UNIT tablet 3,000 units PO DAILY Humulin R U-500 (Conc) Kwikpen 500 UNIT/ML insulin pen 115 unit SQ BID nitroglycerin 0.4 MG tablet, sublingual 0.4 mg sublingual Q5M PRN (Reason: Chest Pain) Qty: 30 0RF pantoprazole 40 MG tablet 40 mg PO BID carvedilol 25 MG tablet 25 mg PO BID ranolazine 500 mg Tablet Extended Release 12 Hr 500 mg PO Q12H tamsulosin 0.4 MG capsule 0.4 mg PO QHS glucose 4 gram Tablet,Chewable 16 g PO Q15M PRN (Reason: Hypoglycemia) magnesium oxide 420 mg Tablet 420 mg PO BID ketoconazole 2 % Shampoo 1 applic TOPICAL DAILY albuterol sulfate 2.5 mg /3 mL (0.083 %) Solution For Nebulization 2.5 mg INHALATION Q6H PRN (Reason: Shortness Of Breath Or Wheezing) guaifenesin 100 mg/5 mL Liquid 200 mg PO TID PRN (Reason: Cough) multivitamin with minerals Tablet 1 tab PO DAILY ferrous sulfate 325 mg (65 mg iron) tablet 325 mg PO BID acetaminophen [Tylenol] 325 MG tablet 650 mg PO Q8H PRN PRN (Reason: Pain) Qty: 30 0RF spironolactone [Aldactone] 25 mg tablet 25 mg PO DAILY furosemide [Lasix] 40 mg tablet 40 mg PO QAM PRN (Reason: edema) 1 Days Qty: 30 0RF prednisone 20 mg tablet 60 mg PO DAILY Qty: 12 0RF meloxicam 15 mg tablet 15 mg PO DAILY Qty: 14 0RF [facility] [Primary Care Provider] -
[2022-11-10 15:40] LABS: Absolute Lymphocyte Count 0.89 X10^3/uL (0.83-4.51); Absolute Neutrophil Count 3.3 X10^3/uL (2.0-7.7); Basophil# 0.02 X10^3/uL; Basophil% 0.4 % (0-1); Eosinophil# 0.11 X10^3/uL; Eosinophils% 2.3 % (0-5); Hematocrit 39.7 % (40-54); Hemoglobin 13.1 g/dL (13.0-16.5); Lymphocyte # 0.89 X10^3/ul (0.83-4.51); Mean Corpuscular Hgb 31.6 pg (27.0-32.0); Mean Corpuscular Volume 95.9 fL (80-94); Mean Platelet Vol. 10.7 fl (6.2-12.0); Monocyte# 0.33 X10^3/uL; NRBC Flagged by Analyzer 0 % (0-5); Neutrophil # 3.33 X10^3/uL (2.7-7.7); Neutrophil % 71.1 % (47-70); Platelet Count 143 K/mm3 (150-450); RBC Distribution Width CV 12.9 % (11.6-14.6); RBC Distribution Width SD 44.3 fl (35.1-43.9); Red Blood Count 4.14 M/mm3 (4.6-6.2); White Blood Count 4.7 K/mm3 (4.4-11.0)
--- NOTE | 2022-11-10 15:54 | RAD_ITS ---
INDICATION: SOB EXAMINATION/TECHNIQUE: X-RAY - XR Chest 1 View COMPARISON: November 02, 2022 FINDINGS: LINES/DEVICES: Stable sternotomy wires and multiple plates over the left rib cage. Stable left-sided pacemaker. LUNGS: No consolidation, edema or effusion. No pneumothorax. MEDIASTINUM AND CARDIOVASCULAR STRUCTURES: Cardiac silhouette is enlarged. Central airways and mediastinal contour are unremarkable. BONES AND SOFT TISSUES: Degenerative vertebral changes. Old right clavicular fracture. RAD/Chest 1 View (Portable) IMPRESSION: Mild cardiomegaly. Electronically Signed: Ever Raines DO at 16:51 EDT Reading Location ID and State: [facility] / [place] Tel [phone], Service support ,
[2022-11-10 15:56] LABS: Anion Gap 3 (5-15); BUN 18 mg/dL (7-18); BUN/Creat Ratio 19.2 RATIO (10-20); Calcium,Total 8.5 mg/dL (8.5-10.1); Chloride 100 mmol/L (98-107); Creatinine, Serum 0.94 mg/dL (0.70-1.30); EST Glomerular Filtration Rate 84 mL/min (>60); Est Glom Filt Rate - Afr Amer 102 mL/min (>60); Estimated Creatinine Clearance 73.35 ml/min; Glucose 192 mg/dL (74-106); Potassium 4.2 mmol/L (3.5-5.1); Sodium Level 138 mmol/L (136-145)
[2022-11-10] MEDS: Aspirin 325 MG Tablet PO (16:06)
[2022-11-10] MEDS: Ketorolac 15 MG/ML Vial IV (16:07)
[2022-11-10 16:55] LABS: Troponin-I HS 28 pg/mL (3.0-78.0)
--- NOTE | 2022-11-10 18:54 | ED.RN ---
PT REFUSED PO TYLENOL. THIS RN EDUCATED PT THAT TYLENOL WILL HELP WITH HIS PAIN. PT STATES TYLENOL DON'T DO NOTHING. THIS RN EDUCATED PT THIS IS THE ONLY PAIN MEDICATION ORDERED FOR PT. PT VERBALIZES UNDERSTANDING AND STATES HE DOES NOT WANT PO TYLENOL.
[2022-11-10 19:23] LABS: Troponin-I HS 30 pg/mL (3.0-78.0)
== END 2022-11-10 20:35 | disposition home or self-care (01) ==
PROVIDERS: Emergency Provider Emergency Medicine; Visit Provider Emergency Medicine
DX: R06.00 Dyspnea, unspecified (principal); J44.9 Chronic obstructive pulmonary disease, unspecified; I11.0 Hypertensive heart disease with heart failure; I50.9 Heart failure, unspecified; D69.6 Thrombocytopenia, unspecified; E11.9 Type 2 diabetes mellitus without complications; Z79.4 Long term (current) use of insulin; Z95.0 Presence of cardiac pacemaker; E78.5 Hyperlipidemia, unspecified; Z95.1 Presence of aortocoronary bypass graft; I25.10 Atherosclerotic heart disease of native coronary artery without angina pectoris; Z86.73 Personal history of transient ischemic attack (TIA), and cerebral infarction without residual deficits; Z87.891 Personal history of nicotine dependence; I25.2 Old myocardial infarction; Z99.81 Dependence on supplemental oxygen; Z79.899 Other long term (current) drug therapy; Z79.82 Long term (current) use of aspirin; Z79.02 Long term (current) use of antithrombotics/antiplatelets; Z90.49 Acquired absence of other specified parts of digestive tract; Z95.5 Presence of coronary angioplasty implant and graft; Z96.652 Presence of left artificial knee joint; R07.9 Chest pain, unspecified
CPT/HCPCS: 71045; 80048; 83880; 84484; 85025; 87811; 93005; 94760; 96374; 99284; A4216

== ENCOUNTER 2023-01-27 11:20 | Inpatient (IN) | payer OTHER, SELFPAY ==
[2023-01-27] VITALS (13 sets, daily range): BP systolic 135–146; BP diastolic 63–73; PULSE 58–72; RESP 16–24; TEMP 36.4–36.6; O2SAT 95–100; BMI 37.2; BMI 35.1
--- NOTE | 2023-01-27 11:31 | EKG12_ITS ---
Test Reason : SOB Blood Pressure : / mmHG Vent. Rate : 060 BPM Atrial Rate : 060 BPM P-R Int : 198 ms QRS Dur : 196 ms QT Int : 530 ms P-R-T Axes : 088 -62 129 degrees QTc Int : 530 ms AV dual-paced rhythm Abnormal ECG Confirmed by BRYN GUALLPA, JULIO C ([id number]), online content editor KENDALL ROCHE ([id number]) on 02/02/2023 7:03:47 AM Referred By: Confirmed By:BELEN CLEMENTE MD
--- NOTE | 2023-01-27 11:38 | EX.ED.DYSGE1 ---
HPI History of Present Illness Chief Complaint: Syncope Detail of Chief Complaint: Syncope x 2 and difficulty breathing Informant: patient, spouse/S.O. and EMS Onset/Context/Timing Onset: Hours (Single episode occurred while sitting on the bed.) and Days (Shortness of breath for the past 2 to 3 days.) Context: Sudden Onset Timing: Intermittent (With respect to the syncopal episode and see HPI narrative for further detail) Quality: Passed out. Has no recall. states he was pale and diaphoretic Location: Sitting on bed at home Current Severity: Moderate Maximum Severity: Severe Worsened by: Respiratory send symptoms worse with talking or walking. Relieved by: Nothing Associated Symptoms Associated Symptoms: Cough, change in voice, right-sided intermittent pleuritic chest pain Narrative Narrative: Patient is a 72-year-old male with history of type 2 diabetes, hypercholesterolemia, COPD on 4 L of oxygen by nasal cannula, congestive heart failure, hypertension and BPH. Patient is on aspirin and Plavix. Patient has type 2 diabetes requiring long-term insulin use. Patient shortness of breath started approximate 3 days ago. He has a cough but is unable to produce sputum. He states it gets stuck. He denies subjective or objective fever. He denies chills. He denies rhinorrhea. He has a remote history of DVT. He denies leg pain or discoloration. He has swelling due to lymphedema. He states he was recently diagnosed with COPD. He has not smoked since 2006. He denies abdominal pain, nausea, vomiting or diarrhea. He denies black or maroon-colored stool. He denies dysuria, frequency, urgency or hematuria. Prior similar symptoms: Yes Recent Illness/Hospitalization: No [facility] Medical History Abnormal EKG Anemia Atherosclerotic heart disease hughes coronary artery w/angina pectoris BiPAP (biphasic positive airway pressure) dependence CAD (coronary artery disease) Chest pain Chronic hyperglycemia Chronic respiratory failure Congestive heart failure (CHF) Conversion reaction COPD (chronic obstructive pulmonary disease) Diabetes DM type 2 (diabetes mellitus, type 2) Dysarthria Essential (primary) hypertension Former smoker Heart failure Hemiparesis, left History of fractured rib History of TIAs Hyperlipidemia Myocardial infarct Obesity On home oxygen therapy EKATERINA (obstructive sleep apnea) Pacemaker Pacemaker battery depletion Pulmonary embolism Sick sinus syndrome Stroke/cerebrovascular accident Wears hearing aid in both ears Home Medications aspirin 81 mg tablet,delayed release 81 mg PO DAILY HEART HEALTH 06/11/18 [History Last Taken 04/14/22] atorvastatin 80 mg tablet 80 mg PO QHS cholesterol 06/11/18 [History Last Taken 09/09/22] cholecalciferol (vitamin D3) 25 mcg (1,000 unit) tablet (Vitamin D3) 3,000 units PO DAILY supplement 06/11/18 [History Last Taken 04/14/22] escitalopram oxalate 10 mg tablet 10 mg PO DAILY depression 06/11/18 [History Last Taken 04/14/22] finasteride 5 mg tablet 5 mg PO DAILY prostate 06/11/18 [History Last Taken 04/14/22] insulin regular hum U-500 conc 500 unit/mL(3 mL) subcut pen (Humulin R U-500 (Conc) Insulin Kwikpen) 115 unit SQ BID diabetes 06/11/18 [History Last Taken 09/09/22] nitroglycerin 0.4 mg sublingual tablet 0.4 mg sublingual Q5M PRN Chest Pain #30 TABLETS 07/22/18 [Rx Last Taken 01/17/20] pantoprazole 40 mg tablet,delayed release 40 mg PO BID GERD 05/18/20 [History Last Taken 09/09/22] carvedilol 25 mg tablet 25 mg PO BID blood pressure 06/22/20 [History Last Taken 04/14/22] ranolazine 500 mg tablet,extended release,12 hr 500 mg PO Q12H chest pain 06/22/20 [History Last Taken 04/14/22] tamsulosin 0.4 mg capsule 0.4 mg PO QHS PROSTATE 08/10/20 [History Last Taken 09/09/22] clopidogrel 75 mg tablet (Plavix) 75 mg PO DAILY blood thinner 01/07/21 [History Last Taken 04/14/22] glucose 4 gram chewable tablet 16 g PO Q15M PRN Hypoglycemia 08/17/21 [History Last Taken Unknown] albuterol sulfate 2.5 mg/3 mL (0.083 %) solution for nebulization 2.5 mg inhalation Q6H PRN Shortness Of Breath Or Wheezing 12/12/21 [History Last Taken 09/09/22] ferrous sulfate 325 mg (65 mg iron) tablet 325 mg PO BID SUPPLEMENT 12/12/21 [History Last Taken 04/14/22] ketoconazole 2 % shampoo 1 applic topical DAILY dry scalp 12/12/21 [History Last Taken 04/14/22] magnesium oxide 420 mg tablet 420 mg PO BID SUPPLEMENT 12/12/21 [History Last Taken 09/09/22] multivitamin with minerals 1 tab PO DAILY SUPPLEMENT 12/12/21 [History Last Taken 09/09/22] diclofenac sodium 1 % gel topical kit 2 g topical BID unsure 08/06/22 [History Last Taken Unknown] spironolactone 25 mg tablet (Aldactone) 25 mg PO DAILY blood pressure 09/10/22 [History Last Taken 09/09/22] furosemide 40 mg tablet (Lasix) 40 mg PO QAM PRN edema 1 day #30 tabs 09/12/22 [Rx Last Taken 09/08/22] meloxicam 15 mg tablet 15 mg PO DAILY #14 tabs 11/02/22 [Rx Last Taken Unknown] budesonide 160 mcg-glycopyr 9 mcg-formot 4.8 mcg/actuation HFA inhaler (Breztri Aerosphere) 2 inh inhalation BID #3 ea 11/17/22 [Rx Last Taken Unknown] guaifenesin 600 mg tablet, extended release 12 hr 1,200 mg (2 x 600 mg) PO Q12H PRN cough #120 tabs 11/17/22 [Rx Last Taken Unknown] acetaminophen 325 mg tablet (Tylenol) 650 mg PO Q8H PRN PAIN 01/27/23 [History Last Taken Unknown] Allergy/AdvReac Type Severity Reaction Status Date / Time ezetimibe Allergy Unknown Verified 01/27/23 11:21 Fish Containing Products Allergy Unknown Verified 01/27/23 11:21 glyburide Allergy Unknown Verified 01/27/23 11:21 isosorbide Allergy PT UNSURE Verified 01/27/23 11:21 OF REACTION lisinopril Allergy Unknown Verified 01/27/23 11:21 metformin Allergy Nausea Verified 01/27/23 11:21 metoprolol Allergy Unknown Verified 01/27/23 11:21 simvastatin Allergy Unknown Verified 01/27/23 11:21 tramadol Allergy Other Verified 01/27/23 11:21 iron AdvReac Mild Vomiting Verified 01/27/23 11:21 gabapentin AdvReac Other Verified 01/27/23 11:21 Family History Father No problems noted. Surgical History H/O coronary artery bypass surgery History of cholecystectomy History of coronary artery stent placement History of knee replacement procedure of left knee History of permanent cardiac pacemaker placement (01/14/21) Social History household members: spouse Smoking Status: Former smoker details: Unknown substance use type: does not use ROS ROS ED Constitutional Constitutional ED: Reports sweats; Denies chills, fever(s), subjective or weight loss Eyes Eyes: Denies blurry vision, change in vision or diplopia ENT ENT ED: Denies ear pain, rhinorrhea or sore throat Cardiovascular Cardiovascular: Reports chest pain and orthopnea; Denies palpitations, paroxysmal nocturnal dyspnea or racing heartbeat Respiratory/Chest Respiratory/Chest: Reports cough, dyspnea, dyspnea on exertion, orthopnea and other Details: Orthopnea is chronic. ; Denies paroxysmal nocturnal dyspnea Gastrointestinal Gastrointestinal: Denies abdominal pain, diarrhea, melena, nausea or vomiting Genitourinary Genitourinary ED: Denies dysuria, hematuria or urinary frequency Musculoskeletal Musculoskeletal: Denies arthralgias or myalgias Integumentary Denies rash Neurologic Neurologic: Denies headache(s) Psychiatric Psychiatric: Denies anxiety or depression Endocrine Endocrinology: Denies cold intolerance Hematologic/Lymphatic Hematologic/Lymphatic: Denies systems reviewed and no addt'l complaints, except as documented EXAM Physical Exam Narrative Exam Narrative: Vital signs remarkable for patient being tachypneic. Pulse ox reading is inaccurate due to waveform. Const Vital Signs: 01/27/23 11:22 01/27/23 11:28 01/27/23 11:53 Temperature 97.5 F L 97.5 F L Temperature Source Oral Oral Pulse Rate 60 60 Respiratory Rate 24 H 24 H Blood Pressure 146/70 H 146/70 H Blood Pressure Mean 95 95 Pulse Ox 97 97 Oxygen Delivery Method Nasal Cannula Nasal Cannula Nasal Cannula Oxygen Flow Rate (L/min) 4 4 4 01/27/23 11:52 Temperature Temperature Source Pulse Rate 60 Respiratory Rate 16 Blood Pressure Blood Pressure Mean Pulse Ox Oxygen Delivery Method Oxygen Flow Rate (L/min) Positive well nourished, well developed and obese Constitutional Narrative: Patient is able to say 5 letters of the alphabet for gasping for breath. There is use of accessory muscles. There is slight superior sternal retractions. General Appearance ED: well developed; Negative for cyanotic, diaphoretic or NAD Nutritional Appearance: obese HEENT Reports dry mucous membranes HEENT Narrative: Head is atraumatic and normocephalic. Ears are normal. Nares patent with slight drainage. Posterior pharynx is normal. Mouth ED: Yes dry mucous membranes Mouth: dry mucous membranes Eyes PERRL and EOMs intact bilaterally General Eye ED: Negative for pale conjunctiva or scleral icterus Neck no lymphadenopathy, supple and no JVD Neck Narrative: Trachea is midline. There is no stridor. Chest Wall inspection of chest normal and palpation of chest normal Resp No normal respiratory effort and No clear to auscultation bilaterally Effort and Inspection: retractions supraclavicular; Negative for pain with movement Auscultation: wheezes expiratory wheezes, scattered wheezes and throughout and diminished lung sounds diffuse Cardio regular rate, regular rhythm, S1 normal heart sound, S2 normal heart sound and no murmurs GI normal to inspection, nondistended, normoactive bowel sounds, non-distended and no masses; Negative for hepatosplenomegaly Auscultation: hypoactive bowel sounds Palpation: soft Back/Spine no CVA tenderness Thoracic Spine / Upper Back: Negative for thoracic spinal tenderness or paraspinal muscle tenderness Extremity Negative for normal to inspection Extremity Narrative: Patient has stigmata of peripheral arterial disease. Skin is dry. General Extremety ED: Yes edema General Extremity: edema Neuro oriented x3, CN's II-XII intact bilaterally and no sensory deficits noted Sensorium / Orientation: alert Psych mental status grossly normal Skin Skin Narrative: Dry skin. There is no acral cyanosis. There is no clubbing. MDM MDM MDM Narrative Medical decision making narrative: Suspect patient's single episodes are vasovagal due to respiratory distress. EKG was obtained to evaluate for acute cardiac ischemia. Need to also consider pulmonary embolus, pneumothorax, exacerbated COPD with viral or bacterial infection, pneumonia. Also need to consider hypovolemia GI bleed. Patient does have history of iron deficiency anemia. He denied black or maroon-colored stool. History & Record Review Discussion w/independent historian: Patient and Significant other Additional record(s) reviewed:: Prior inpatient record (Admitted August 2022 for chest pain.), Prior outpatient record (Nurse practitioner pulmonary records reviewed.), Prior ED visit and Prior labs Lab Data Attestation: I reviewed the patient's lab results. Lab results narrative: White count is normal. Patient does have mild anemia with an H&H 11.6 and 35.1. Differential reveals slight shift with no bandemia. Electrolyte panel reveals a glucose of 222 with normal CO2 anion gap. Lactate elevated 3.1. Suspect the lactic acidosis type a due to hypoxia. This is Not due to an infectious process. Labs: Laboratory Results - last 24 hr 01/27/23 11:45 WBC 4.8 RBC 3.74 L Hgb 11.6 L Hct 35.1 L MCV 93.9 MCH 31.0 MCHC 33.0 RDW Std Deviation 46.3 H RDW Coeff of Cinda 13.6 Plt Count 121 L MPV 11.4 Immature Gran % (Auto) 0.800 Neut % (Auto) 75.8 H Lymph % (Auto) 14.7 L Piatt % (Auto) 6.2 Eos % (Auto) 2.1 Baso % (Auto) 0.4 Absolute Neuts (auto) 3.7 Absolute Lymphs (auto) 0.71 L Nucleated RBC % 0 Sodium 139 Potassium 4.0 Chloride 102 Carbon Dioxide 32.0 Anion Gap 5 BUN 18 Creatinine 0.99 Estim Creat Clear Calc 69.64 Est GFR (MDRD) Af Amer 96 Est GFR (MDRD) Non-Af 79 BUN/Creatinine Ratio 18.3 Glucose 222 H Lactic Acid 3.1 H* Calcium 8.4 L Total Bilirubin 0.90 AST 13 L ALT 21 Alkaline Phosphatase 83 Troponin I High Sens 25 B-Natriuretic Peptide 161.1 H Total Protein 6.7 Albumin 3.2 Globulin 3.5 Albumin/Globulin Ratio 0.9 ABG Data Attestation: I personally reviewed and interpreted this ABG as follows: Interpretation: ABG reveals acute on chronic CO2 retention with a respiratory alkalosis. Patient mixed venous is otherwise unremarkable. ABG results: ABG 01/27/23 12:22 Specimen Type JULISSA Sample Site Not entered VBG pH 7.31 L VBG pO2 < 34 VBG HCO3 30 H VBG Total CO2 32 VBG O2 Sat (Calc) 56 VBG Base Excess 4 H POC Mix VBG pCO2 Pt Tmp 60.8 H O2 Delivery Device Not entered Clinical Comments 1 lpm Radiography Chest X-Ray - ED: 1 View and Read by ED Physician (There is evidence of cardiomegaly. Cardiac silhouette is not obscured. There is evidence of cephalization. There is no curly B-lines noted. Perihilar region is not widened and there is no significant lymphadenopathy. Osseous structures unremarkable. This independently reviewed interpreted by m) Diagnostic Testing: Clinical Impression(s) from Imaging Studies Chest X-Ray 01/27/23 11:55 IMPRESSION: Cardiomegaly. Mild vascular congestion. Electronically Signed: Mick García MD at 12:38 EST , Rhythm Strip Rhythm Strip: AV sequential pacemaker rate of 60. Ectopy: None EKG Initial EKG: Attestation: I personally reviewed and interpreted this EKG as follows: Interpretation: Paced (AV dual paced rhythm rate of 60. [place] interval is 198 ms. QRS duration 196 ms. QT duration 530 ms. [place] to left.) Prior: Unchanged Treatment and Re-Evaluation :: Patient's x-ray does reveal heart failure. The left lung parenchyma is abnormal but is unchanged from November 10. Will treat with IV Lasix. Also suspect patient exacerbation of his COPD. With him having acute on chronic CO2 retention will call hospitalist for admission. Patient is still having difficulty breathing after aerosol treatments. Comments:: In light of patient's medical problems presentation discussed CODE STATUS. He wishes no CPR. No invasive ventilation. Noninvasive ventilation is okay. Will complete DNR Comfort Care arrest document. Critical Care Time Critical Care Time: Yes Critical care time (excluding procedures): 30-74 minutes (31), Including time spent: (History, physical, documentation, independent interpretation laboratories notes and x-ray initiation of therapy for COPD, CHF), Discussing w/Patient &/or Family/Hand Plate Stacker (Discussion with patient and regarding CODE STATUS and DNR resuscitation orders), Discussing w/Consultants and Arranging Admission or Transfer Discharge Plan Dx/Rx/DC Orders Clinical Impression: Acute on chronic respiratory failure with hypoxia and hypercapnia, EKATERINA (obstructive sleep apnea), History of permanent cardiac pacemaker placement, Acute exacerbation of congestive heart failure, Acute exacerbation of chronic obstructive pulmonary disease, Acute bronchospasm, DNR (do not resuscitate) discussion, DNR (do not resuscitate), Acute hyperglycemia, Acidosis, lactic, Syncope and collapse Disposition Disposition: [facility] Capacity Capacity Assessment Tool Can the patient make a choice & communicate that choice?: Yes Can the patient understand benefits, risks and alternatives?: Yes Can the patient make a logical, rational choice?: Yes Is the choice the patient makes consistent w/ their values?: Yes Is there an impending, emergent risk to the patient?: Unable to Determine Is there a Surrogate Available?: Yes i.e. close relative (spouse, child, parent, sibling)?: Yes
[2023-01-27] MEDS: MethylPREDNISolone 125 MG/2 ML Vial IV (11:50)
[2023-01-27] MEDS: Ipratropium/Albuterol Sulfate 3 ML AMPUL.NEB INHALATION (11:50)
[2023-01-27] MEDS: Albuterol 2.5 MG/3 ML VIAL.NEB. INHALATION ×4 (11:50→23:18)
--- NOTE | 2023-01-27 11:55 | RAD_ITS ---
STUDY: X-RAY CHEST REASON FOR EXAM: Male, 72 years old. Respiratory distress, cough, wheezing TECHNIQUE: Single AP portable view of the chest. COMPARISON: Comparison is made with prior study dated November 10, 2022. FINDINGS: EKG electrodes are seen. Prior multiple ORIF of left rib fractures. Mild degree of vascular congestion. There is no demonstrated pleural abnormality. Sternal cerclage wires and vascular clips are present from a prior sternotomy and coronary artery bypass graft procedure (CABG). Cardiomegaly. A left-sided bipolar pacemaker is seen. Normal mediastinum and cata. Normal visualized pulmonary arteries. Normal visualized aortic arch and descending thoracic aorta. Normal visualized thoracic spine. Normal visualized ribs, clavicles, and shoulders. There is no demonstrated abnormality of the visualized soft tissue structures of the upper abdomen. RAD/Chest 1 View (Portable) IMPRESSION: Cardiomegaly. Mild vascular congestion. Electronically Signed: Mick García MD at 12:38 EST ,
[2023-01-27] MEDS: Morphine 2 MG/ML Syringe IV ×2 (12:03→16:08)
[2023-01-27 12:05] LABS: Absolute Lymphocyte Count 0.71 X10^3/uL (0.83-4.51); Absolute Neutrophil Count 3.7 X10^3/uL (2.0-7.7); Basophil# 0.02 X10^3/uL; Basophil% 0.4 % (0-1); Eosinophils% 2.1 % (0-5); Hematocrit 35.1 % (40-54); Hemoglobin 11.6 g/dL (13.0-16.5); Lymphocyte # 0.71 X10^3/ul (0.83-4.51); Lymphocyte % 14.7 % (19-41); Mean Corpuscular Volume 93.9 fL (80-94); Mean Platelet Vol. 11.4 fl (6.2-12.0); Monocyte% 6.2 % (0-10); NRBC Flagged by Analyzer 0 % (0-5); Neutrophil # 3.67 X10^3/uL (2.7-7.7); Neutrophil % 75.8 % (47-70); Platelet Count 121 K/mm3 (150-450); RBC Distribution Width CV 13.6 % (11.6-14.6); RBC Distribution Width SD 46.3 fl (35.1-43.9); Red Blood Count 3.74 M/mm3 (4.6-6.2); White Blood Count 4.8 K/mm3 (4.4-11.0)
[2023-01-27 12:12] LABS: ALB/GLOB Ratio 0.9 RATIO (0.9-2.4); AST(SGOT) 13 U/L (15-37); Alanine Aminotransfer ALT/SGPT 21 U/L (16-61); Albumin, Serum 3.2 g/dL (3.2-5.0); Alkaline Phosphatase 83 U/L (45-117); Anion Gap 5 (5-15); BUN 18 mg/dL (7-18); BUN/Creat Ratio 18.3 RATIO (10-20); Calcium,Total 8.4 mg/dL (8.5-10.1); Chloride 102 mmol/L (98-107); Creatinine, Serum 0.99 mg/dL (0.70-1.30); EST Glomerular Filtration Rate 79 mL/min (>60); Est Glom Filt Rate - Afr Amer 96 mL/min (>60); Estimated Creatinine Clearance 69.64 ml/min; Globulin 3.5 g/dL (2.2-4.2); Glucose 222 mg/dL (74-106); Protein, Total 6.7 g/dL (6.4-8.2); Sodium Level 139 mmol/L (136-145); Troponin-I HS (w/2H Reflex) 25 pg/mL (3.0-78.0)
[2023-01-27 12:28] LABS: Blood Gas Specimen Type VEN; O2 Delivery Device Not entered; SITE Not entered; VBG BASE EXCESS 4 mmol/L (-1.0-3.5); VBG Bicarbonate 30 mmol/L (22-26); VBG PO2 < 34 mmHg (25-40); VBG SO2 56 % (50-70); VBG TCO2 32 mmol/L (23-33); VBG pCO2 60.8 mmHg (41-51); VBG pH 7.31 (7.32-7.42)
[2023-01-27 12:29] LABS: Lactic Acid 3.1 mmol/L (0.4-1.9)
[2023-01-27 12:40] LABS: BNP,B-Type NATRIURETIC PEPTIDE 161.1 pg/mL (0-100)
--- NOTE | 2023-01-27 13:19 | NURSING ---
CHRISTA SHEETS ACUTE ON CHRONIC RESP FAILURE, CHF, COPD, SYNCOPE
[2023-01-27] MEDS: Furosemide 100 MG/10 ML Vial 60 MG IV (13:21)
--- NOTE | 2023-01-27 13:27 | NURSING ---
DR EMIL BREWER
[2023-01-27 13:47] LABS: Reflex Troponin-HS? (from REC) Y
[2023-01-27 14:19] LABS: Troponin-I HS 26 pg/mL (3.0-78.0)
[2023-01-27 15:46] LABS: Reflex Lactate? Y
[2023-01-27 16:50] LABS: Lactic Acid 3.4 mmol/L (0.4-1.9)
--- NOTE | 2023-01-27 17:49 | ECHOCS_ITS ---
Reason For Study: CHF Procedure This was a 2D Doppler, Color Flow transthoracic echocardiogram. Contrast injection was performed. Exam performed portable in patient room. Left Ventricle Normal LV size. The estimated ejection fraction is 45 %. Diastolic function is indeterminate. [place] : Hypokinetic. Right Ventricle Normal RV size. There is a pacemaker lead in the right ventricle. Normal systolic function. Atria Normal left atrium. Normal right atrium. ICD or pacer leads identified within the right atrium. No doppler evidence for ASD. Mitral Valve There is no mitral valve stenosis. Mild (1+) mitral valve insufficiency. Tricuspid Valve There is no tricuspid stenosis. Mild tricuspid valve insufficiency. Pulmonary artery systolic pressure is 35 mmHg. Aortic Valve Trisinus/trileaflet aortic valve. There is no aortic stenosis. No aortic valve insufficiency. Pulmonic Valve There is no pulmonic valvular stenosis. No pulmonic valve insufficiency. Great Vessels Normal aortic root. Pericardium/Pleural No pericardial effusion. Medication Diluted definity 2ml given slow IV push to enhance endocardial definition. MMode/2D Measurements & Calculations LVIDd: 5.8 cm IVSd: 1.0 cm Ao root diam: 3.3 cm LVIDs: 4.4 cm LVPWd: 1.0 cm RVDd: 4.4 cm FS: 24.8 % LAV(MOD-bp): 60.7 ml LA A4 area: 20.7 cm2 LA dimension(2D): 4.8 cm LAV(MOD-bp) Indexed: 26.8 ml/m2 LAV(MOD-sp2): 54.9 ml LAV(MOD-sp4): 61.5 ml TAPSE: 1.5 cm RA A4 area: 13.0 cm2 Time Measurements MV dec time: 0.21 sec Doppler Measurements & Calculations MV E max des: 99.4 cm/sec Lat Peak E' Des: 7.9 cm/sec Med Peak E' Des: 3.9 cm/sec MV A max des: 41.9 cm/sec E/E' lat: 12.5 E/E' med: 25.8 MV E/A: 2.4 MV dec slope: 475.2 cm/sec2 Ao V2 max: 131.2 cm/sec LV V1 max: 101.2 cm/sec Ao max P.9 mmHg LV V1 max P.1 mmHg Ao V2 mean: 87.1 cm/sec Ao mean P.4 mmHg Ao V2 VTI: 23.9 cm PA V2 max: 106.9 cm/sec TR max des: 282.7 cm/sec TR max P.0 mmHg ECHO/Echo Complete W/ Contrast Interpretation Summary The estimated ejection fraction is 45 %. Diastolic function is indeterminate. Mild (1+) mitral valve insufficiency. [place] : Hypokinetic. Ordering Physician: Varsha Short Referring Physician: Performed By: Roof, Belkis, RDCS, RVT
--- NOTE | 2023-01-27 17:54 | HP.PCM.HOS_ITS ---
HPI - General General Date of Admission: 01/27/23 Date of Service: 01/27/23 Chief Complaint: Shortness of breath HPI Narrative GIOVANNY LEONARDO, is a 72 M who presented to the emergency department at [facility] on 01/27/2023 complaining of acute onset shortness of breath that started about 3 days ago. Patient has a known history of congestive heart failure with an EF of 50%. His last echocardiogram here was 01/20/2022. He states that about 3 days ago he started having worsening shortness of breath. He denies any fever or chills, no sick contacts, chronic stable cough with no sputum production and some intermittent wheezing. He states he does not lie flat on a regular basis and sleeps on his sides however sleeping has been difficult due to his shortness of breath. He denies paroxysmal nocturnal dyspnea. His legs have slight swelling in him. Per discussion with his who was at the bedside about 4 to 6 months ago his primary care physician discontinued his home Lasix and told his to only given Lasix if he has swelling in his legs on a as needed basis which she has been doing. They indicate they do not add salt to any food however they are unable to tell me if they really follow fluid restriction at home. They are in the process of transitioning his cardiac care from [place] to [place] to be closer to home. [facility] It does not sound like they check his weight d aily. Since his last outpatient visit in the cardiology office it appears that he is up about 7 kg. His baseline weight is about 109-110 kg in the emergency department he was 117 kg. He wears oxygen 4 L at baseline. He had been on 2 L but recently his primary care physician increased his dose from 2 to 4 L due to hypoxia. He also has a history of COPD. Vital signs on presentation showed temperature of 97.5, heart rate was 60, blood pressure was 146/70, respiratory rate was 24 and oxygen saturation was 97% on room air. He was not ever hypoxic however it did appear he had some acute on ch ronic CO2 retention. His CBC was overall unremarkable only showing a chronic stable anemia and thrombocytopenia. He did have a slight left shift with a 75.8% neutrophilia but no other signs of infection. VBG was done showing a pH of 7.31 however I am unclear of the significance of this. We will obtain an ABG. His chemistry panel is overall unremarkable. His initial troponin was 26. Lactic acid was done and found to be 3.1 we do suspect this may be related to respiratory distress and shortness of breath. BNP was performed and found to be 161.1 which is higher than his previous. Chest x-ray was performed and demonstrated cardiomegaly with mild vascular congestion. The left lung field appears to be more congested than the right. EKG shows a paced rhythm without any ST-T wave changes concerning for acute ischemia however there is a chronic left bundle due to the pacing. Patient was maintained on his 4 L of oxygen and given IV Lasix. [facility] Medical History Abnormal EKG Anemia Atherosclerotic heart disease [place] coronary artery w/angina pectoris BiPAP (biphasic positive airway pressure) dependence CAD (coronary artery disease) Chest pain Chronic hyperglycemia Chronic respiratory failure Congestive heart failure (CHF) Conversion reaction COPD (chronic obstructive pulmonary disease) Diabetes DM type 2 (diabetes mellitus, type 2) Dysarthria Essential (primary) hypertension Former smoker Heart failure Hemiparesis, left History of fractured rib History of TIAs Hyperlipidemia Myocardial infarct Obesity On home oxygen therapy EKATERINA (obstructive sleep apnea) Pacemaker Pacemaker battery depletion Pulmonary embolism Sick sinus syndrome Stroke/cerebrovascular accident Wears hearing aid in both ears Home Medications aspirin 81 mg tablet,delayed release 81 mg PO DAILY HEART HEALTH 06/11/18 [History Last Taken 01/26/23] atorvastatin 80 mg tablet 80 mg PO QHS cholesterol 06/11/18 [History Last Taken 01/26/23] cholecalciferol (vitamin D3) 25 mcg (1,000 unit) tablet (Vitamin D3) 3,000 units PO DAILY supplement 06/11/18 [History Last Taken 01/26/23] escitalopram oxalate 10 mg tablet 10 mg PO DAILY depression 06/11/18 [History Last Taken 01/26/23] finasteride 5 mg tablet 5 mg PO DAILY prostate 06/11/18 [History Last Taken 01/26/23] insulin regular hum U-500 conc 500 unit/mL(3 mL) subcut pen (Humulin R U-500 (Conc) Insulin Kwikpen) 105 unit subcut 1700 DIABETES 06/11/18 [History Last Taken 01/26/23] nitroglycerin 0.4 mg sublingual tablet 0.4 mg sublingual Q5M PRN Chest Pain #30 TABLETS 07/22/18 [Rx Last Taken 01/17/20] pantoprazole 40 mg tablet,delayed release 40 mg PO BID GERD 05/18/20 [History Last Taken 01/26/23] carvedilol 25 mg tablet 25 mg PO BID blood pressure 06/22/20 [History Last Taken 01/26/23] ranolazine 500 mg tablet,extended release,12 hr 500 mg PO Q12H chest pain 06/22/20 [History Last Taken 01/26/23] tamsulosin 0.4 mg capsule 0.4 mg PO QHS PROSTATE 08/10/20 [History Last Taken 01/26/23] clopidogrel 75 mg tablet (Plavix) 75 mg PO DAILY blood thinner 01/07/21 [History Last Taken 01/26/23] albuterol sulfate 2.5 mg/3 mL (0.083 %) solution for nebulization 2.5 mg inhalation Q6H PRN Shortness Of Breath Or Wheezing 12/12/21 [History Last Taken 01/25/23] ferrous sulfate 325 mg (65 mg iron) tablet 325 mg PO BID SUPPLEMENT 12/12/21 [History Last Taken 01/26/23] ketoconazole 2 % shampoo 1 applic topical DAILY dry scalp 12/12/21 [History Last Taken 01/26/23] magnesium oxide 420 mg tablet 420 mg PO BID SUPPLEMENT 12/12/21 [History Last Taken 01/26/23] multivitamin with minerals 1 tab PO DAILY SUPPLEMENT 12/12/21 [History Last Taken 01/26/23] spironolactone 25 mg tablet (Aldactone) 25 mg PO DAILY blood pressure 09/10/22 [History Last Taken 01/26/23] budesonide 160 mcg-glycopyr 9 mcg-formot 4.8 mcg/actuation HFA inhaler (Breztri Aerosphere) 2 inh inhalation BID SHORTNESS OF BREATH #3 ea 11/17/22 [Rx Last Taken Unknown] guaifenesin 600 mg tablet, extended release 12 hr 1,200 mg (2 x 600 mg) PO Q12H PRN cough #120 tabs 11/17/22 [Rx Last Taken 01/26/23] acetaminophen 325 mg tablet (Tylenol) 650 mg PO Q8H PRN PAIN 01/27/23 [History Last Taken 01/25/23] cyclobenzaprine 10 mg tablet 10 mg PO BID PRN MUSCLE SPASMS 01/27/23 [History Last Taken Unknown] fluticasone fur. 200 mcg-umeclid 62.5 mcg-vilant 25 mcg inhalat.powder (Trelegy Ellipta) 1 inh inhalation DAILY SHORTNESS OF BREATH 01/27/23 [History Last Taken 01/26/23] insulin regular hum U-500 conc 500 unit/mL(3 mL) subcut pen (Humulin R U-500 (Conc) Insulin Kwikpen) 125 unit subcut BREAKFAST DIABETES 01/27/23 [History Last Taken 01/26/23] Allergy/AdvReac Type Severity Reaction Status Date / Time ezetimibe Allergy Unknown Verified 01/27/23 11:21 Fish Containing Products Allergy Unknown Verified 01/27/23 11:21 glyburide Allergy Unknown Verified 01/27/23 11:21 isosorbide Allergy PT UNSURE Verified 01/27/23 11:21 OF REACTION lisinopril Allergy Unknown Verified 01/27/23 11:21 metformin Allergy Nausea Verified 01/27/23 11:21 metoprolol Allergy Unknown Verified 01/27/23 11:21 simvastatin Allergy Unknown Verified 01/27/23 11:21 tramadol Allergy Other Verified 01/27/23 11:21 iron AdvReac Mild Vomiting Verified 01/27/23 11:21 gabapentin AdvReac Other Verified 01/27/23 11:21 Family History Father No problems noted. no significant family history Surgical History H/O coronary artery bypass surgery History of cholecystectomy History of coronary artery stent placement History of knee replacement procedure of left knee History of permanent cardiac pacemaker placement (01/14/21) Social History household members: spouse Smoking Status: Former smoker details: Unknown substance use type: does not use ROS Constitutional Constitutional: Denies anorexia, change in weight, chills, fatigue, fever(s), malaise, night sweats, weakness or other Eyes Eyes: Denies blurry vision, change in eye color, change in vision, discharge from eye(s), double vision, erythema, eye pain, loss of vision or other ENT HEENT: Denies abnormal hearing, dysphagia, ear pain, epistaxis, headache(s), hearing loss, nasal congestion, nasal discharge, post nasal drip, sinus pressure, sore throat or other Cardiovascular Cardiovascular: Reports dyspnea on exertion and edema; Denies chest pain, claudication, lightheadedness, orthopnea, palpitations, paroxysmal nocturnal dyspnea, rapid heart rate, syncope or other Respiratory/Chest Respiratory/Chest: Reports cough and shortness of breath with exertion; Denies dyspnea, excessive phlegm production, hemoptysis, productive cough, shortness of breath at rest, wheezing or other Gastrointestinal Gastrointestinal: Denies abdominal pain, coffee ground emesis, constipation, diarrhea, dyspepsia, hematemesis, hematochezia, loose stools, melena, nausea, vomiting or other Genitourinary Genitourinary: Denies burning urination, difficulty urinating, dysuria, hematuria, nocturia, urinary frequency, urinary hesitancy, urinary incontinence, urinary urgency or other Musculoskeletal Musculoskeletal: Denies arthralgias, back pain, joint pain, joint stiffness, joint swelling, myalgias, neck pain or other Neurologic Neurologic: Denies abnormal gait, abnormal speech, confusion, disequilibrium, dizziness, focal weakness, headache(s), numbness, paresthesias, seizure-like activity, seizures, syncope, tingling, tremor(s) or other Psychiatric Psychiatric: Denies anxiety, depression, homicidal ideation, suicidal ideation or other Endocrine Endocrinology: Denies change in body appearance, cold intolerance, excessive sweating, heat intolerance, polydipsia, polyuria or other Hematologic/Lymphatic Hematologic/Lymphatic: Denies anemia, easy bleeding, easy bruising, lymphadenopathy or other Allergic/Immunologic Allergic/Immunologic: Denies rhinitis, hives, eczemia, asthma or other Vital Signs Vital Signs Vital Signs: 01/27/23 11:22 01/27/23 11:28 01/27/23 11:53 Temperature 97.5 F L 97.5 F L Temperature Source Oral Oral Pulse Rate 60 60 Respiratory Rate 24 H 24 H Blood Pressure 146/70 H 146/70 H Blood Pressure Mean 95 95 Pulse Ox 97 97 Oxygen Delivery Method Nasal Cannula Nasal Cannula Nasal Cannula Oxygen Flow Rate (L/min) 4 4 4 01/27/23 11:52 01/27/23 13:24 01/27/23 13:28 Temperature 98 F Temperature Source Temporal Pulse Rate 60 60 62 Respiratory Rate 16 19 H 18 Blood Pressure 145/73 H 139/66 H Blood Pressure Mean 97 90 Pulse Ox 97 97 Oxygen Delivery Method Nasal Cannula Nasal Cannula Oxygen Flow Rate (L/min) 4 2 01/27/23 13:37 01/27/23 14:15 01/27/23 15:00 Temperature 97.9 F 97.6 F L Temperature Source Temporal Temporal Pulse Rate 62 60 72 Respiratory Rate 18 20 H 21 H Blood Pressure 139/66 H 137/65 H 135/70 H Blood Pressure Mean 90 89 91 Pulse Ox 97 98 96 Oxygen Delivery Method Nasal Cannula Nasal Cannula Oxygen Flow Rate (L/min) 4 4 01/27/23 15:00 01/27/23 16:00 Temperature 97.6 F L Temperature Source Temporal Pulse Rate 72 64 Respiratory Rate 21 H 20 H Blood Pressure 135/70 H 138/72 H Blood Pressure Mean 91 94 Pulse Ox 96 98 Oxygen Delivery Method Nasal Cannula Nasal Cannula Oxygen Flow Rate (L/min) Weight Weight: 117.7 kg Body Mass Index (BMI) 37.2 Physical Exam Const alert, oriented x3, no apparent distress and well nourished; Negative for average body habitus or healthy appearing Constitutional Narrative: Obese, older, white male, sitting up in bed, at bedside, currently appears comfortable but does demonstrate some mild tachypnea with conversation, currently stable on his baseline 4 L nasal cannula, patient does appear chronically ill and older than stated age General Appearance: cooperative HEENT normocephalic, head/scalp atraumatic and moist oral mucous membranes; Negative for dentition normal HEENT Narrative: Dentures in place, Mallampati 3, no thrush, moderate hearing loss Eyes PERRL, EOMs intact bilaterally and conjunctivae normal Eyes Narrative: No scleral icterus Neck no lymphadenopathy, supple and No no JVD Neck Narrative: Mild JVD present, trachea midline, thyroid unremarkable Resp No normal respiratory effort, no retractions, no use of accessory muscles and No clear to auscultation bilaterally Resp Narrative: Few scattered crackles at bases bilaterally but diminished otherwise, some conversational dyspnea Auscultation: crackles; Negative for rhonchi or wheezes Cardio regular rate, S1 normal heart sound, S2 normal heart sound, no murmurs, no rub, no gallops and no clicks GI normal to inspection, nondistended, normoactive bowel sounds, soft to palpation and non-tender Extremity Extremity Narrative: Trace bilateral lower extremity pedal edema with pitting present, no cyanosis or clubbing Skin no rashes or lesions noted, no wounds, skin turgor normal, no jaundice, no petechiae and no mottling Neuro oriented x3, moves all extremities and no focal motor deficits Speech: speech normal Psych affect normal Psych Narrative: Pleasant, interacts appropriately Results Lab / Micro Data 01/27/23 11:45 01/27/23 11:45 Labs: Laboratory Results - last 24 hr 01/27/23 11:35: Troponin I High Sens 26 01/27/23 11:45: WBC 4.8, RBC 3.74 L, Hgb 11.6 L, Hct 35.1 L, MCV 93.9, MCH 31.0, MCHC 33.0, RDW Std Deviation 46.3 H, RDW Coeff of Cinda 13.6, Plt Count 121 L, MPV 11.4, Immature Gran % (Auto) 0.800, Neut % (Auto) 75.8 H, Lymph % (Auto) 14.7 L, [place] % (Auto) 6.2, Eos % (Auto) 2.1, Baso % (Auto) 0.4, Absolute Neuts (auto) 3.7, Absolute Lymphs (auto) 0.71 L, Nucleated RBC % 0, Sodium 139, Potassium 4.0, Chloride 102, Carbon Dioxide 32.0, Anion Gap 5, BUN 18, Creatinine 0.99, Estim Creat Clear Calc 69.64, Est GFR (MDRD) Af Amer 96, Est GFR (MDRD) Non-Af 79, BUN/Creatinine Ratio 18.3, Glucose 222 H, Lactic Acid 3.1 H*, Calcium 8.4 L, Total Bilirubin 0.90, AST 13 L, ALT 21, Alkaline Phosphatase 83, Troponin I High Sens 25, B-Natriuretic Peptide 161.1 H, Total Protein 6.7, Albumin 3.2, Globulin 3.5, Albumin/Globulin Ratio 0.9 01/27/23 16:10: Lactic Acid 3.4 H* Micro: Microbiology 01/27/23 12:20 Nasal Secretion SARS-CoV-2 & FLU Antigen (Rapid) - Final ABG Data ABG results: ABG 01/27/23 12:22 Specimen Type JULISSA Sample Site Not entered VBG pH 7.31 L VBG pO2 < 34 VBG HCO3 30 H VBG Total CO2 32 VBG O2 Sat (Calc) 56 VBG Base Excess 4 H POC Mix VBG pCO2 Pt Tmp 60.8 H O2 Delivery Device Not entered Clinical Comments 1 lpm Rhythm Strip Rhythm Strip: AV sequential pacemaker rate of 60. Ectopy: None Imagaing Radiology Impression Chest X-Ray 01/27/23 11:55 IMPRESSION: Cardiomegaly. Mild vascular congestion. Electronically Signed: Mick García MD at 12:38 EST , Assessment & Plan Assessment/Plan (1) Syncope and collapse: (2) Acidosis, lactic: (3) Shortness of breath: PLAN: Plan Shortness of breath with chronic hypoxic respiratory failure -Oxygenation at rest is stable on 4 L nasal cannula which is his baseline -ABG is pending -Emergency department felt that his VBG was indicative of hypercapnia however the patient has chronic hypercapnia and I highly doubt he has any acute hypercapnia at this time however ABG is pending -Lasix 40 mg IV push 3 times daily and reassess renal function tomorrow -Anticipate that patient will need to restart Lasix upon discharge -Will recheck echocardiogram is has not had 1 recently -Last echo was in January 2022 at which time he had a borderline EF of 50% -Cycle cardiac enzymes -Accurate I's and O's -Sodium restriction -Fluid restriction Syncope -Etiology is unclear -Will monitor on telemetry -Monitor enzymes -Check echocardiogram -Check TSH COPD/EKATERINA/lung nodule -Continue home BiPAP at 16/ -Continue supplemental oxygen of 4 L which is his baseline -Continue home inhalers -As needed albuterol -Continue home Mucinex -Repeat imaging for lung nodule pending in April 2023 CAD/HTN/HPL -History of CABG -Continue home Aldactone, Ranexa, Plavix, Coreg for, atorvastatin and baby aspirin -Echo pending as noted above -Recommend outpatient follow-up after discharge -Patient indicates he is trying to transition his adobe flex developer from a [place] adobe flex developer to an [facility] adobe flex developer in [place] History of stroke -Continue aspirin -Continue Plavix DM-2 -Patient with very resistant diabetes as he is on U-500 insulin -Continue home insulin -Will avoid steroids if at all possible -SSI -Cardiac/carb controlled diet History of sick sinus syndrome -Status post pacemaker placement -Stable GERD -continue home PPI BPH -Continue home -Continue home Proscar Depression -Continue home Celexa prophy Chronic anemia -Hemoglobin stable with current hemoglobin 11.6 -Baseline appears to run between 10.5 and 12.5 -Continue home iron supplementation Chronic thrombocytopenia -Counts are relatively stable -Monitor Obesity -BMI 35.1 -Complicates treatment, prognosis, outcomes -Recommend weight loss DVT prophylaxis -Subcu Lovenox CODE STATUS -DNR CCA okay for short-term intubation per discussion on admission Charges/Coding Visit Charges Inpatient E&M: 69766 Init Hosp L2
[2023-01-27 18:39] LABS: Bedside Glucose 384 mg/dL (74-106)
[2023-01-27] MEDS: Insulin Lispro 100 UNIT/ML INSULN.PEN SC (18:42)
[2023-01-27 19:07] LABS: Troponin-I HS 16 pg/mL (3.0-78.0)
[2023-01-27] MEDS: Pantoprazole Sodium 40 MG Tablet PO (19:32)
[2023-01-27] MEDS: Ranolazine 500 MG Tablet PO (19:33)
[2023-01-27] MEDS: Furosemide 40 MG/4 ML Vial IV (19:33)
[2023-01-27] MEDS: Tamsulosin HCl 0.4 MG Capsule PO (19:33)
[2023-01-27] MEDS: Carvedilol 25 MG Tablet PO (19:34)
[2023-01-27] MEDS: Atorvastatin Calcium 80 MG Tablet PO (19:34)
--- NOTE | 2023-01-27 19:42 | CPS ---
Pt declined ABG draw, He stated he already had one done in ER, and doesn't know why he needs it done again tonight. RN notified.
[2023-01-27] MEDS: oxyCODONE 5 MG Tablet PO (19:44)
[2023-01-27] MEDS: Acetaminophen 325 MG Tablet 650 MG PO (21:16)
[2023-01-28] VITALS (10 sets, daily range): BP systolic 116–161; BP diastolic 63–77; PULSE 60–78; RESP 14–20; TEMP 35.9–36.6; O2SAT 94–99; BMI 34.8
--- NOTE | 2023-01-28 01:28 | CPS ---
Pt stated he had 10 peps and I.S's at home. He did not want them this admission.
--- NOTE | 2023-01-28 01:30 | CPS ---
Pt is on sleep lab machine for his night bipap. 01/11 with 3L O2 bled in.
[2023-01-28] MEDS: Furosemide 40 MG/4 ML Vial IV (05:22)
[2023-01-28] MEDS: Insulin Lispro 100 UNIT/ML INSULN.PEN SC ×3 (05:29→16:56)
[2023-01-28 05:50] LABS: Bedside Glucose 288 mg/dL (74-106)
[2023-01-28] MEDS: Albuterol 2.5 MG/3 ML VIAL.NEB. INHALATION ×3 (07:14→20:58)
[2023-01-28] MEDS: Insulin U-500 UNITS/ML PEN 115 UNITS SC ×2 (07:49→16:56)
[2023-01-28] MEDS: Aspirin E.C. 81 MG Tablet PO (07:49)
[2023-01-28] MEDS: Cholecalciferol (VIT D3) 25 MCG TABLET (1,000 UNITS) 75 MCG PO (07:49)
[2023-01-28] MEDS: Multivitamins,Ther W-Minerals Tablet 1 TABLET PO (07:49)
[2023-01-28] MEDS: Carvedilol 25 MG Tablet PO ×2 (07:50→20:19)
[2023-01-28] MEDS: Escitalopram Oxalate 10 MG Tablet PO (07:50)
[2023-01-28] MEDS: Spironolactone 25 MG Tablet PO (07:50)
[2023-01-28] MEDS: Clopidogrel Bisulfate 75 MG Tablet PO (07:51)
[2023-01-28] MEDS: Finasteride 5 MG Tablet PO (07:51)
[2023-01-28] MEDS: Pantoprazole Sodium 40 MG Tablet PO ×2 (07:51→20:20)
[2023-01-28] MEDS: Ranolazine 500 MG Tablet PO ×2 (07:51→20:20)
[2023-01-28 08:10] LABS: Absolute Lymphocyte Count 0.33 X10^3/uL (0.83-4.51); Absolute Neutrophil Count 6.1 X10^3/uL (2.0-7.7); Basophil# 0.01 X10^3/uL; Basophil% 0.2 % (0-1); Hematocrit 37.2 % (40-54); Hemoglobin 12.4 g/dL (13.0-16.5); Lymphocyte # 0.33 X10^3/ul (0.83-4.51); Mean Corp Hgb Conc 33.3 g/dL (32-36); Mean Corpuscular Hgb 31.4 pg (27.0-32.0); Mean Corpuscular Volume 94.2 fL (80-94); Mean Platelet Vol. 11.5 fl (6.2-12.0); Monocyte# 0.22 X10^3/uL; Monocyte% 3.3 % (0-10); NRBC Flagged by Analyzer 0 % (0-5); Neutrophil # 6.05 X10^3/uL (2.7-7.7); Neutrophil % 91.2 % (47-70); POSITIVE DIFFERENTIAL YES; Platelet Count 161 K/mm3 (150-450); RBC Distribution Width CV 13.8 % (11.6-14.6); RBC Distribution Width SD 47.2 fl (35.1-43.9); Red Blood Count 3.95 M/mm3 (4.6-6.2); White Blood Count 6.6 K/mm3 (4.4-11.0)
[2023-01-28 08:25] LABS: Differential Indicated SCAN CRITERIA MET
[2023-01-28 08:41] LABS: Anion Gap 6 (5-15); BUN 27 mg/dL (7-18); BUN/Creat Ratio 22.5 RATIO (10-20); Calcium,Total 8.8 mg/dL (8.5-10.1); Chloride 98 mmol/L (98-107); EST Glomerular Filtration Rate 63 mL/min (>60); Est Glom Filt Rate - Afr Amer 76 mL/min (>60); Estimated Creatinine Clearance 57.45 ml/min; Glucose 320 mg/dL (74-106); Magnesium 1.9 mg/dL (1.6-2.6); Phosphorus 3.6 mg/dL (2.5-4.9); Potassium 3.9 mmol/L (3.5-5.1); Sodium Level 137 mmol/L (136-145); Thyroid Stim Hormone (TSH) 0.65 uIU/mL (0.358-3.74)
[2023-01-28 09:07] LABS: Differential Comment SCANNED
[2023-01-28] MEDS: Losartan Potassium 25 MG Tablet PO (11:08)
--- NOTE | 2023-01-28 11:40 | CASEMGMT ---
RN GRAZYNA Face to Face with patient for initial transition planning/care coordination assessment. RN CM introduced self and role at [facility]. Patient lying in bed, alert and oriented. Patient willing to participate in assessment and is able to answer all questions appropriately. Care providers, pharmacy, and demographics verified. Patient wishes to discharge home, denies need for home health at this time. Patient states he has no further needs or concerns at this time. CM to follow for discharge planning needs that may arise. PCP: PIPO Harris [facility]: [facility] [place]: [place] [facility] Prescription Benefit: [place] Living Will/HPOA: yes, Lucina Coello LNOK: Living Arrangements: Patient lives with in a single story home with 1 steps to enter the home. Patient states he is independent at home, assists at times. Transportation: DME/HHC: Patient has shower chair, raised toilet, walker, rollator, wheelchair, cpap, nebuilzer, pulse ox, scooter, and home oxygen through [facility] at 4lpm with portability. Patient has had [facility]HC in the past. Patient has been to [facility] in the past. Disposition Plan: Patient to discharge home with family support and follow-up plans in place. Vida ATKINSON, RN, CM
[2023-01-28] MEDS: Ferrous Sulfate 325 MG Tablet PO ×2 (14:05→16:57)
--- NOTE | 2023-01-28 14:35 | RAD_ITS ---
STUDY: X-RAY - LUMBAR SPINE REASON FOR EXAM: Male, 72 years old. Pain. TECHNIQUE: 3 view(s) of the lumbar spine were obtained. COMPARISON: None FINDINGS: Osteopenia. Normal lumbar lordosis. No scoliosis. Normal alignment of the vertebral bodies. Endplate can cavities compatible with osteoporosis most marked in the lower thoracic and upper lumbar spine. Diffuse lower thoracic and lumbosacral facet sclerosis. Mild intervertebral disc space narrowing with osteophytes. Vascular calcification. Cholecystectomy clips. RAD/Lumbar Spine 2 or 3 Views IMPRESSION: Osteopenia with moderate lower thoracic and lumbosacral spondylosis as described. Electronically Signed: Rich Alvarez MD at 14:56 EST ,
--- NOTE | 2023-01-28 14:35 | RAD_ITS ---
STUDY: X-RAY - CERVICAL SPINE REASON FOR EXAM: Male, 72 years old. Pain. TECHNIQUE: 3 view(s) of the cervical spine were obtained on 4 images. COMPARISON: None FINDINGS: Marked osteopenia. Normal anterior atlantoaxial articulation. Normal odontoid process. Normal cervical lordosis. Diffuse moderate uncovertebral and facet sclerosis. Mild diffuse intervertebral disc space narrowing with flowing paravertebral ossification. No acute abnormality. Carotid calcification. RAD/Cerv Spine 2 or 3 Views IMPRESSION: Osteopenia with diffuse moderate cervical spondylosis and no acute abnormality. Carotid calcification. Electronically Signed: Rich Alvarez MD at 14:54 EST ,
[2023-01-28 15:01] LABS: Bedside Glucose 370 mg/dL (74-106)
[2023-01-28] MEDS: Metaxalone 800 MG Tablet PO (15:12)
[2023-01-28] MEDS: oxyCODONE 5 MG Tablet PO (15:12)
[2023-01-28] MEDS: Empagliflozin 25 MG Tablet PO (15:12)
[2023-01-28 16:38] LABS: Bedside Glucose 263 mg/dL (74-106)
--- NOTE | 2023-01-28 17:27 | PCM.PN.HOSP ---
Reason for Visit Reason for Visit: Shortness of breath Subjective Subjective Patient feels that with regards to his breathing is about 50% better. Later in the day he mention to the nurse he was having neck and back pain which is part of the reason he came to the hospital. This is the first time he had mentioned it to anybody. He had received oxycodone and Tylenol which have not helped his symptoms per his report however he does not appear uncomfortable on exam. It does not sound like he has any radicular symptoms and everything is focal centrally. I do suspect he has osteoarthritis of the spine based on his age. Will go ahead and obtain imaging and try 1 dose of Skelaxin along with a K-pad. Objective Data Objective Data Vital Signs: Vital Signs Temp Pulse Resp BP Pulse Ox O2 Del Method O2 Flow Rate 97.8 F 60 18 116/63 99 Nasal Cannula 3 01/28/23 14:54 01/28/23 14:54 01/28/23 14:54 01/28/23 14:54 01/28/23 14:54 01/28/23 14:54 01/28/23 16:17 Oxygen Flow Rate (L/min) 3 Oxygen Delivery Method Nasal Cannula Weight: 110.1 kg Body Mass Index (BMI) 34.8 Intake & Output: Intake and Output for Last 24 Hours 01/26/23 01/27/23 01/28/23 23:59 23:59 23:59 Intake Total 360 / 360 Output Total 1425 / 1425 2200 / 2200 Balance -1425 / -1185 -1840 / -1840 Lab / Micro Data 01/28/23 06:55 01/28/23 06:55 Labs: Laboratory Results - last 24 hr 01/27/23 18:15: Troponin I High Sens 16 01/27/23 18:20: POC Glucose 384 H 01/28/23 05:26: POC Glucose 288 H 01/28/23 06:55: WBC 6.6, RBC 3.95 L, Hgb 12.4 L, Hct 37.2 L, MCV 94.2 H, MCH 31.4, MCHC 33.3, RDW Std Deviation 47.2 H, RDW Coeff of Cinda 13.8, Plt Count 161, MPV 11.5, Immature Gran % (Auto) 0.300, Neut % (Auto) 91.2 H, Lymph % (Auto) 5.0 L, [place] % (Auto) 3.3, Eos % (Auto) 0.0, Baso % (Auto) 0.2, Absolute Neuts (auto) 6.1, Absolute Lymphs (auto) 0.33 L, Nucleated RBC % 0, Differential Comment SCANNED, Sodium 137, Potassium 3.9, Chloride 98, Carbon Dioxide 33.0 H, Anion Gap 6, BUN 27 H, Creatinine 1.20, Estim Creat Clear Calc 57.45, Est GFR (MDRD) Af Amer 76, Est GFR (MDRD) Non-Af 63, BUN/Creatinine Ratio 22.5 H, Glucose 320 H, Calcium 8.8, Phosphorus 3.6, Magnesium 1.9, TSH 0.65 01/28/23 11:07: POC Glucose 370 H 01/28/23 16:18: POC Glucose 263 H Micro: Microbiology 01/27/23 12:20 Nasal Secretion SARS-CoV-2 & FLU Antigen (Rapid) - Final Radiography Diagnostic Testing: Radiology Impression Echocardiogram 01/27/23 17:49 Interpretation Summary The estimated ejection fraction is 45 %. Diastolic function is indeterminate. Mild (1+) mitral valve insufficiency. [place] : Hypokinetic. Ordering Physician: Varsha Short Referring Physician: [facility] Performed By: Belkis Hardin, RDCS, RVT Cervical Spine X-Ray 01/28/23 14:35 IMPRESSION: Osteopenia with diffuse moderate cervical spondylosis and no acute abnormality. Carotid calcification. Electronically Signed: Rich Alvarez MD at 14:54 EST , Lumbar Spine X-Ray 01/28/23 14:35 IMPRESSION: Osteopenia with moderate lower thoracic and lumbosacral spondylosis as described. Electronically Signed: Rich Alvarez MD at 14:56 EST , Rhythm Strip Rhythm Strip: AV sequential pacemaker rate of 60. Ectopy: None Physical Exam Const alert, oriented x3, no apparent distress and well nourished; Negative for average body habitus or healthy appearing Constitutional Narrative: Obese, older, white male, sitting up in a chair watching television eating breakfast, at bedside, appears comfortable, stable on his chronic 4 L nasal cannula, nontoxic-appearing however does appear to be older than stated age General Appearance: cooperative HEENT normocephalic, head/scalp atraumatic and moist oral mucous membranes; Negative for dentition normal HEENT Narrative: Dentition is poor, Mallampati is 3, no thrush Resp No normal respiratory effort, no retractions, no use of accessory muscles and No clear to auscultation bilaterally Resp Narrative: Improved aeration of the bases bilaterally and crackles have resolved Auscultation: Negative for crackles, rhonchi or wheezes Cardio regular rate, S1 normal heart sound, S2 normal heart sound, no murmurs, no rub, no gallops and no clicks GI normal to inspection, nondistended, normoactive bowel sounds, soft to palpation and non-tender Extremity no clubbing, cyanosis or edema Extremity Narrative: Edema has resolved Neuro oriented x3, moves all extremities and no focal motor deficits Speech: speech normal Psych affect normal Psych Narrative: Pleasant, interacts appropriately Assessment & Plan Assessment/Plan (1) Syncope and collapse: (2) Acidosis, lactic: (3) Shortness of breath: PLAN: Plan Shortness of breath with chronic hypoxic respiratory failure secondary to acute HFrEF -Oxygenation at rest is stable on 4 L nasal cannula which is his baseline -Patient refused ABG -Emergency department felt that his VBG was indicative of hypercapnia however the patient has chronic hypercapnia and I highly doubt he has any acute hypercapnia at this time however ABG is pending -BUN/creatinine are trending up so we will discontinue IV Lasix and transition back to 40 mg daily -Echocardiogram was performed and ejection fraction is now 45% down from 50 to 55% on previous echocardiogram -Apical akinesis/hypokinesis was noted -Consult cardiology and check a.m. stress test now that heart failure seems to be compensated -Cardiac enzymes unremarkable -Accurate I's and O's -Sodium restriction -Fluid restriction Syncope -Etiology is unclear -Telemetry stable -Enzymes unremarkable -Echo as above -TSH within normal limits -Check stress test Neck pain/back pain -Continue as needed oxycodone and Tylenol -Will trial Skelaxin x 1 dose -K-pad -Check imaging -If no significant findings on imaging and no radicular symptoms will instruct patient to pursue follow-up with outpatient primary care physician for further testing if persistent COPD/EKATERINA/lung nodule -Continue home BiPAP -Continue supplemental oxygen of 4 L which is his baseline -Continue home inhalers -As needed albuterol -Continue home Mucinex -Repeat imaging for lung nodule pending in April 2023 CAD/HTN/HPL -History of CABG -Continue home Aldactone, Ranexa, Plavix, Coreg for, atorvastatin and baby aspirin -Echo pending as noted above -Recommend outpatient follow-up after discharge -Patient indicates 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 [place] History of stroke -Continue aspirin -Continue Plavix DM-2 -Patient with very resistant diabetes as he is on U-500 insulin -Continue home insulin -Will avoid steroids if at all possible -SSI -Cardiac/carb controlled diet History of sick sinus syndrome -Status post pacemaker placement -Stable GERD -continue home PPI BPH -Continue home -Continue home Proscar Depression -Continue home Celexa prophy Chronic anemia -Hemoglobin stable with current hemoglobin 12.4 -Baseline appears to run between 10.5 and 12.5 -Continue home iron supplementation Chronic thrombocytopenia -Counts are relatively stable -Monitor Obesity -BMI 35.1 -Complicates treatment, prognosis, outcomes -Recommend weight loss DVT prophylaxis -Subcu Lovenox CODE STATUS -DNR CCA okay for short-term intubation per discussion on admission Charges/Coding Visit Charges Inpatient E&M: 40616 Subs Hosp L2
[2023-01-28] MEDS: Atorvastatin Calcium 80 MG Tablet PO (20:20)
[2023-01-28 21:56] LABS: Bedside Glucose 106 mg/dL (74-106)
[2023-01-29] VITALS (7 sets, daily range): BP systolic 109–135; BP diastolic 54–78; PULSE 59–72; RESP 16–18; TEMP 36.4–36.6; O2SAT 89–100; BMI 34.7
[2023-01-29] MEDS: Clopidogrel Bisulfate 75 MG Tablet PO (06:06)
[2023-01-29] MEDS: Losartan Potassium 25 MG Tablet PO (06:06)
[2023-01-29 06:29] LABS: Bedside Glucose 114 mg/dL (74-106)
[2023-01-29] MEDS: Albuterol 2.5 MG/3 ML VIAL.NEB. INHALATION ×2 (06:57→13:04)
[2023-01-29 07:54] LABS: Absolute Lymphocyte Count 1.32 X10^3/uL (0.83-4.51); Absolute Neutrophil Count 6.2 X10^3/uL (2.0-7.7); Basophil# 0.02 X10^3/uL; Basophil% 0.2 % (0-1); Eosinophil# 0.07 X10^3/uL; Eosinophils% 0.9 % (0-5); Hemoglobin 12.2 g/dL (13.0-16.5); Lymphocyte # 1.32 X10^3/ul (0.83-4.51); Lymphocyte % 16.2 % (19-41); Mean Corp Hgb Conc 32.1 g/dL (32-36); Mean Corpuscular Volume 96.4 fL (80-94); Mean Platelet Vol. 11.3 fl (6.2-12.0); Monocyte# 0.51 X10^3/uL; Monocyte% 6.2 % (0-10); NRBC Flagged by Analyzer 0 % (0-5); Neutrophil # 6.22 X10^3/uL (2.7-7.7); Neutrophil % 76.1 % (47-70); Platelet Count 150 K/mm3 (150-450); RBC Distribution Width CV 14.1 % (11.6-14.6); RBC Distribution Width SD 48.7 fl (35.1-43.9); Red Blood Count 3.94 M/mm3 (4.6-6.2); White Blood Count 8.2 K/mm3 (4.4-11.0)
[2023-01-29 08:39] LABS: Anion Gap 6 (5-15); BUN 41 mg/dL (7-18); BUN/Creat Ratio 36.3 RATIO (10-20); Calcium,Total 8.4 mg/dL (8.5-10.1); Chloride 103 mmol/L (98-107); Creatinine, Serum 1.13 mg/dL (0.70-1.30); EST Glomerular Filtration Rate 68 mL/min (>60); Est Glom Filt Rate - Afr Amer 82 mL/min (>60); Estimated Creatinine Clearance 61.01 ml/min; Glucose 119 mg/dL (74-106); Potassium 3.6 mmol/L (3.5-5.1); Sodium Level 144 mmol/L (136-145)
[2023-01-29] MEDS: Cholecalciferol (VIT D3) 25 MCG TABLET (1,000 UNITS) 75 MCG PO (10:12)
[2023-01-29] MEDS: Ranolazine 500 MG Tablet PO (10:12)
[2023-01-29] MEDS: Finasteride 5 MG Tablet PO (10:12)
[2023-01-29] MEDS: Pantoprazole Sodium 40 MG Tablet PO (10:12)
[2023-01-29] MEDS: Multivitamins,Ther W-Minerals Tablet 1 TABLET PO (10:12)
[2023-01-29] MEDS: Carvedilol 25 MG Tablet PO (10:12)
[2023-01-29] MEDS: Escitalopram Oxalate 10 MG Tablet PO (10:13)
[2023-01-29] MEDS: Empagliflozin 25 MG Tablet PO (10:13)
[2023-01-29] MEDS: Aspirin E.C. 81 MG Tablet PO (10:18)
[2023-01-29 12:18] LABS: Bedside Glucose 207 mg/dL (74-106)
[2023-01-29] MEDS: Insulin Lispro 100 UNIT/ML INSULN.PEN SC (14:18)
[2023-01-29] MEDS: Spironolactone 25 MG Tablet PO (14:18)
[2023-01-29] MEDS: Furosemide 40 MG Tablet PO (14:18)
--- NOTE | 2023-01-29 14:24 | STRESSREP_ITS ---
Stress Test Report Date: 01/29/2023 Procedure: Pharmacologic stress nuclear imaging study Indications: Shortness of breath Consent: Per the patient Procedure: The patient underwent pharmacologic (Regadenoson) evaluation with a peak heart rate of 75 beats per minute (50%predicted maximal heart rate) and a peak blood pressure of 112/68 mmHg. The baseline ECG demonstrated paced rhythm. EKG during lexiscan infusion revealed no significant ischemic changes. EKG post infusion revealed no significant ischemic changes [There were no cardiac dysrhythmias pretest, during pharmacologic infusion, or recovery]. [There was no complaint of chest discomfort during pharmacologic infusion or recovery]. The examination was discontinued secondary to completion of protocol. Impression: 1. Lexiscan stress test test is negative for Lexiscan infusion induced EKG changes of ischemia. 2. Lexiscan stress test test is negative for Lexiscan infusion induced chest pain. 3. Results of the nuclear portion of the test is as below Myocardial perfusion imaging study: Technique: The patient was injected with [] millicuries of technetium 99m Cardiolite and subsequently rest SPECT Cardiolite nuclear imaging was obtained in the horizontal long, vertical long, and short axis views. The patient underwent pharmacologic [Regadenoson 0.4mg] evaluation. Please see above for details. The patient was injected with [] millicuries of technetium 99m Cardiolite and subsequently stress SPECT Cardiolite nuclear imaging was obtained in the horizontal long, vertical long, and short axis views. A gated Cardiolite study at peak stress was obtained. Interpretation: Rest and stress SPECT Cardiolite nuclear imaging status post realignment, normalization, and attenuation correction demonstrate decreased to absent radioisotope uptake in the apex on both the rest and stress images. There is also decreased radioisotope uptake in the inferior wall on both the rest and stress images prior to attenuation correction which improves after attenuation correction. These findings are suggestive of prior apical myocardial infarction and diaphragmatic attenuation artifact. No significant reversible defect suggestive of significant ischemia. Gated images reveal apical hypokinesis. The reported LVEF is 44%. Impression: 1. There is no evidence of significant ischemia. Evidence of prior apical myocardial infarction. 2. Estimated ejection fraction is 44%. This note was generated with [employer] software. It may contain incorrect words, spelling, and punctuation that were not noted in checking the note before signing.
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
--- NOTE | 2023-01-29 16:02 | CASEMGMT ---
Patient has order for discharge. Patient discharging on Jardiance and only [facility]. KRISTI GERONIMO updated hospitalist and is okay with patient following up with [facility] and have them [facility] Jardiance script. KRISTI GERONIMO updated patient and , voiced understanding. Patient had no further questions or concerns at this time.
[2023-01-30 00:58] LABS: Bedside Glucose 207 mg/dL (74-106)
== END 2023-01-29 17:07 | disposition home or self-care (01) | DRG 291 ==
LOC: ED 13:26 → PCU 15:05
PROVIDERS: Admitting Provider Internal Medicine; Emergency Provider Emergency Medicine; Visit Provider Internal Medicine
DX: I11.0 Hypertensive heart disease with heart failure (principal); I50.21 Acute systolic (congestive) heart failure; J44.1 Chronic obstructive pulmonary disease with (acute) exacerbation; I47.19 Other supraventricular tachycardia; J96.11 Chronic respiratory failure with hypoxia; I27.23 Pulmonary hypertension due to lung diseases and hypoxia; D69.6 Thrombocytopenia, unspecified; E11.65 Type 2 diabetes mellitus with hyperglycemia; Z79.4 Long term (current) use of insulin; D64.9 Anemia, unspecified; F32.A Depression, unspecified; E78.00 Pure hypercholesterolemia, unspecified; I25.10 Atherosclerotic heart disease of native coronary artery without angina pectoris; K21.9 Gastro-esophageal reflux disease without esophagitis; I89.0 Lymphedema, not elsewhere classified; G47.33 Obstructive sleep apnea (adult) (pediatric); M54.2 Cervicalgia; E66.9 Obesity, unspecified; R55 Syncope and collapse; N40.0 Benign prostatic hyperplasia without lower urinary tract symptoms; Z68.35 Body mass index [BMI] 35.0-35.9, adult; Z66 Do not resuscitate; Z79.02 Long term (current) use of antithrombotics/antiplatelets; Z79.51 Long term (current) use of inhaled steroids; Z79.82 Long term (current) use of aspirin; Z79.899 Other long term (current) drug therapy; Z87.891 Personal history of nicotine dependence; Z95.5 Presence of coronary angioplasty implant and graft; Z95.0 Presence of cardiac pacemaker; Z95.1 Presence of aortocoronary bypass graft; Z99.81 Dependence on supplemental oxygen
CPT/HCPCS: 36415; 71045; 72040; 72100; 78452; 80048; 80053; 82803; 82962; 83605; 83735; 83880; 84100; 84443; 84484; 85025; 87428; 93005; 93017; 93306; 94002; 94003; 94640; 97110; 97116; 97161; 99252; 99285; A9500; Q9957; A4216; C8929; G0463; J1940; J2785

== ENCOUNTER 2023-02-02 13:18 | Emergency (ER) | payer OTHER, SELFPAY ==
[2023-02-02 13:19] VITALS: BP 161/72; PULSE 69; RESP 20; TEMP 36.4; O2SAT 93; BMI 36.6
[2023-02-02 13:26] VITALS: O2SAT 99
--- NOTE | 2023-02-02 13:26 | EKG12_ITS ---
Test Reason : SYNCOPE Blood Pressure : / mmHG Vent. Rate : 064 BPM Atrial Rate : 064 BPM P-R Int : 150 ms QRS Dur : 206 ms QT Int : 512 ms P-R-T Axes : 132 -63 118 degrees QTc Int : 528 ms AV dual-paced rhythm in a pattern of bigeminy Abnormal ECG Confirmed by PADILLA GUALLPA, CALI ([id number]), story editor NADINE FERRER ([id number]) on 02/03/2023 9:44:39 AM Referred By: Confirmed By:CALI CAUSEY MD
--- NOTE | 2023-02-02 13:33 | EDS_ITS ---
HPI <DEV Mendoza - Last Filed: 02/02/23 15:19> History of Present Illness Chief Complaint: Syncope Narrative Narrative: 72 old male with PMH of HTN, HLD, DM2, CHF, COPD on 4 L O2 nasal cannula [place] the [place]. He states he felt lightheaded and had sharp midsternal chest pain after waking up this morning and then at the bank he felt more lightheaded and passed out. Bystanders caught him and lowered him into a chair and he was brought in by EMS. No head injury. He states he still has sharp chest pain and feels short of breath although he is on his baseline oxygen. He was admitted to the hospital last week for similar syncopal episode and discharged 2 days ago. He denies fever or cough. He states his leg edema has improved since discharge. PFSH <DEV Mendoza - Last Filed: 02/02/23 15:19> [facility] Medical History Abnormal EKG Anemia Atherosclerotic heart disease [place] coronary artery w/angina pectoris BiPAP (biphasic positive airway pressure) dependence CAD (coronary artery disease) Chest pain Chronic hyperglycemia Chronic respiratory failure Congestive heart failure (CHF) Conversion reaction COPD (chronic obstructive pulmonary disease) Diabetes DM type 2 (diabetes mellitus, type 2) Dysarthria Essential (primary) hypertension Former smoker Heart failure Hemiparesis, left History of fractured rib History of TIAs Hyperlipidemia Myocardial infarct Obesity On home oxygen therapy EKATERINA (obstructive sleep apnea) Pacemaker Pacemaker battery depletion Pulmonary embolism Sick sinus syndrome Stroke/cerebrovascular accident Wears hearing aid in both ears Home Medications aspirin 81 mg tablet,delayed release 81 mg PO DAILY HEART HEALTH 06/11/18 [History Last Taken 01/26/23] atorvastatin 80 mg tablet 80 mg PO QHS cholesterol 06/11/18 [History Last Taken 01/26/23] cholecalciferol (vitamin D3) 25 mcg (1,000 unit) tablet (Vitamin D3) 3,000 units PO DAILY supplement 06/11/18 [History Last Taken 01/26/23] escitalopram oxalate 10 mg tablet 10 mg PO DAILY depression 06/11/18 [History Last Taken 01/26/23] finasteride 5 mg tablet 5 mg PO DAILY prostate 06/11/18 [History Last Taken 01/26/23] insulin regular hum U-500 conc 500 unit/mL(3 mL) subcut pen (Humulin R U-500 (Conc) Insulin Kwikpen) 105 unit subcut 1700 DIABETES 06/11/18 [History Last Taken 01/26/23] nitroglycerin 0.4 mg sublingual tablet 0.4 mg sublingual Q5M PRN Chest Pain #30 TABLETS 07/22/18 [Rx Last Taken 01/17/20] pantoprazole 40 mg tablet,delayed release 40 mg PO BID GERD 05/18/20 [History Last Taken 01/26/23] carvedilol 25 mg tablet 25 mg PO BID blood pressure 06/22/20 [History Last Taken 01/26/23] ranolazine 500 mg tablet,extended release,12 hr 500 mg PO Q12H chest pain 06/22/20 [History Last Taken 01/26/23] tamsulosin 0.4 mg capsule 0.4 mg PO QHS PROSTATE 08/10/20 [History Last Taken 01/26/23] clopidogrel 75 mg tablet (Plavix) 75 mg PO DAILY blood thinner 01/07/21 [History Last Taken 01/26/23] albuterol sulfate 2.5 mg/3 mL (0.083 %) solution for nebulization 2.5 mg inhalation Q6H PRN Shortness Of Breath Or Wheezing 12/12/21 [History Last Taken 01/25/23] ferrous sulfate 325 mg (65 mg iron) tablet 325 mg PO BID SUPPLEMENT 12/12/21 [History Last Taken 01/26/23] ketoconazole 2 % shampoo 1 applic topical DAILY dry scalp 12/12/21 [History Last Taken 01/26/23] magnesium oxide 420 mg tablet 420 mg PO BID SUPPLEMENT 12/12/21 [History Last Taken 01/26/23] multivitamin with minerals 1 tab PO DAILY SUPPLEMENT 12/12/21 [History Last Taken 01/26/23] spironolactone 25 mg tablet (Aldactone) 25 mg PO DAILY blood pressure 09/10/22 [History Last Taken 01/26/23] budesonide 160 mcg-glycopyr 9 mcg-formot 4.8 mcg/actuation HFA inhaler (Breztri Aerosphere) 2 inh inhalation BID SHORTNESS OF BREATH #3 ea 11/17/22 [Rx Last Taken Unknown] guaifenesin 600 mg tablet, extended release 12 hr 1,200 mg (2 x 600 mg) PO Q12H PRN cough #120 tabs 11/17/22 [Rx Last Taken 01/26/23] acetaminophen 325 mg tablet (Tylenol) 650 mg PO Q8H PRN PAIN 01/27/23 [History Last Taken 01/25/23] cyclobenzaprine 10 mg tablet 10 mg PO BID PRN MUSCLE SPASMS 01/27/23 [History Last Taken Unknown] fluticasone fur. 200 mcg-umeclid 62.5 mcg-vilant 25 mcg inhalat.powder (Trelegy Ellipta) 1 inh inhalation DAILY SHORTNESS OF BREATH 01/27/23 [History Last Taken 01/26/23] insulin regular hum U-500 conc 500 unit/mL(3 mL) subcut pen (Humulin R U-500 (Conc) Insulin Kwikpen) 125 unit subcut BREAKFAST DIABETES 01/27/23 [History Last Taken 01/26/23] empagliflozin 25 mg tablet (Jardiance) 25 mg PO DAILY #30 tabs 01/29/23 [Rx Last Taken Unknown] furosemide 40 mg tablet 40 mg PO DAILY #0 tabs 01/29/23 [Rx Last Taken Unknown] losartan 25 mg tablet 25 mg PO DAILY #30 tabs 01/29/23 [Rx Last Taken Unknown] Allergy/AdvReac Type Severity Reaction Status Date / Time ezetimibe Allergy Unknown Verified 01/27/23 11:21 Fish Containing Products Allergy Unknown Verified 01/27/23 11:21 glyburide Allergy Unknown Verified 01/27/23 11:21 isosorbide Allergy PT UNSURE Verified 01/27/23 11:21 OF REACTION lisinopril Allergy Unknown Verified 01/27/23 11:21 metformin Allergy Nausea Verified 01/27/23 11:21 metoprolol Allergy Unknown Verified 01/27/23 11:21 simvastatin Allergy Unknown Verified 01/27/23 11:21 tramadol Allergy Other Verified 01/27/23 11:21 iron AdvReac Mild Vomiting Verified 01/27/23 11:21 gabapentin AdvReac Other Verified 01/27/23 11:21 Family History Father No problems noted. Surgical History H/O coronary artery bypass surgery History of cholecystectomy History of coronary artery stent placement History of knee replacement procedure of left knee History of permanent cardiac pacemaker placement (01/14/21) Social History (Updated 02/02/23 @ 13:23 by Jaclyn Sewell) household members: spouse Smoking Status: Former smoker details: Unknown substance use type: does not use ROS <DEV Mendoza - Last Filed: 02/02/23 15:19> ROS ED ROS Narrative Constitutional: Negative for fever, chills, malaise. CVS: Positive for chest pain, syncope. Respiratory: Positive for shortness of breath. Negative for cough. GI: Negative for abdominal pain, nausea, vomiting. Neuro: Negative for headache. EXAM <DEV Mendoza - Last Filed: 02/02/23 15:19> Physical Exam Narrative Exam Narrative: CONST: Patient sitting in no acute distress. EYES: Normal inspection. NECK: Normal inspection. RESP: No respiratory distress, wearing 4 L nasal cannula, CTAB. CVS: Regular rate and rhythm, no murmur, no gallop. ABD: Soft and nontender, no guarding or rebound, nondistended. SKIN: Color normal, no rash, warm, dry, intact. EXTREMITIES: Normal appearance, no pedal edema, no calf tenderness., 2+ radial and DP pulses. NEURO: Oriented x4. PSYCH: Normal affect. Const Vital Signs: 02/02/23 13:19 02/02/23 13:23 02/02/23 13:26 Temperature 97.5 F L Temperature Source Temporal Pulse Rate 69 Respiratory Rate 20 H Respiratory Effort Normal Blood Pressure 161/72 H Blood Pressure Mean 101 Pulse Ox 93 99 Oxygen Delivery Method Room Air Nasal Cannula Oxygen Flow Rate (L/min) 4 02/02/23 13:45 Temperature Temperature Source Pulse Rate 65 Respiratory Rate 18 Respiratory Effort Blood Pressure 128/60 H Blood Pressure Mean 82 Pulse Ox 98 Oxygen Delivery Method Nasal Cannula Oxygen Flow Rate (L/min) <Dr. Malcolm Chavez MD - Last Filed: 02/02/23 14:16> Physical Exam Const Vital Signs: 02/02/23 13:19 02/02/23 13:23 02/02/23 13:26 Temperature 97.5 F L Temperature Source Temporal Pulse Rate 69 Respiratory Rate 20 H Respiratory Effort Normal Blood Pressure 161/72 H Blood Pressure Mean 101 Pulse Ox 93 99 Oxygen Delivery Method Room Air Nasal Cannula Oxygen Flow Rate (L/min) 4 02/02/23 13:45 Temperature Temperature Source Pulse Rate 65 Respiratory Rate 18 Respiratory Effort Blood Pressure 128/60 H Blood Pressure Mean 82 Pulse Ox 98 Oxygen Delivery Method Nasal Cannula Oxygen Flow Rate (L/min) [facility] <DEV Mendoza - Last Filed: 02/02/23 15:19> [facility] Narrative Medical decision making narrative: History gathered from: Patient, , EMS Patient has syncopal episode prior to arrival. He was lowered to the ground, no head injury. Quickly returned to baseline and now complains of some chest pain. Vital signs are unremarkable. He is on chronic 4 L of O2 nasal cannula for CHF/COPD. His normal heart and lung sounds. No signs of extremity edema. EKG and cardiac workup are negative. His pacemaker was interrogated and the rep states there was no abnormalities today during the time of the event. CBC and BMP only notable for glucose of 222 consistent with his diabetes. Patient was admitted a week ago and had pretty extensive workup at that time with a negative stress test so not sure admitting him after syncopal episode would add additional value. He is also a DNR. Patient would like to go home. I thoroughly discussed the findings with patient and his . His is trying to contact the [place] to get a local chief mate so they don't have to travel to [place] and I encouraged this. Patient given return precautions and discharged in stable condition. Differentia;: vasovagal, cardiac, infectious etiology External records reviewed: Stress test 01/29/2023 shows no evidence of significant ischemia, EF 44%. I have personally performed a face to face assessment of the patient and have reviewed the KEVIN Note. I performed a substantive portion of the visit including all aspects of the following. My winslow findings include: History is [ 72-year-old male history of cardiac history including a pacemaker. Recent hospital admission. Patient had event in the line at the bank today. Prior to that he was feeling fine.] Exam is [ 72-year-old male vital signs are stable and afebrile. Pulse ox is 93% on room air no hypoxia. He is in no distress. present in the room. HEENT exam unremarkable. Neck nontender no JVD. lungs clear to auscultation bilaterally. Heart paced on the monitor. Rate in the 60s. Chest wall nontender. Abdomen soft nontender. No peritoneal signs. Moving all 4 extremities. Nontender no deformity. Neurologically is awake and alert with no focal motor deficits.] Medical Decision Making [ 72-year-old male with a syncopal event. Extensive cardiac history with a pacemaker. Cardiac workup with screening labs.We will also attempt to get his pacemaker interrogated. ] Other additions or changes: [None] Lab Data Labs: Laboratory Results - last 24 hr 02/02/23 13:25 WBC 5.5 RBC 4.20 L Hgb 13.0 Hct 38.8 L MCV 92.4 MCH 31.0 MCHC 33.5 RDW Std Deviation 44.8 H RDW Coeff of Cinda 13.4 Plt Count 154 MPV 10.8 Immature Gran % (Auto) 0.400 Neut % (Auto) 76.9 H Lymph % (Auto) 14.4 L [place] % (Auto) 6.5 Eos % (Auto) 1.6 Baso % (Auto) 0.2 Absolute Neuts (auto) 4.3 Absolute Lymphs (auto) 0.80 L Nucleated RBC % 0 Sodium 138 Potassium 3.7 Chloride 104 Carbon Dioxide 30.0 Anion Gap 4 L BUN 28 H Creatinine 1.12 Estim Creat Clear Calc 61.56 Est GFR (MDRD) Af Amer 83 Est GFR (MDRD) Non-Af 68 BUN/Creatinine Ratio 25.0 H Glucose 222 H Calcium 9.1 Troponin I High Sens 20 Radiography Diagnostic Testing: Clinical Impression(s) from Imaging Studies Chest X-Ray 02/02/23 13:50 IMPRESSION: Stable examination. No acute abnormality is seen. Cardiomegaly. Electronically Signed: Mick García MD at 14:08 EST , EKG Initial EKG: Attestation: I personally reviewed and interpreted this EKG as follows: Comments: AV dual paced rhythm and pattern of bigeminy 64 bpm, no STEMI <Dr. Malcolm Chavez MD - Last Filed: 02/02/23 14:16> MDM MDM Narrative Medical decision making narrative: External records reviewed: Stress test 01/29/2023 shows no evidence of significant ischemia, EF 44%. I have personally performed a face to face assessment of the patient and have reviewed the KEVIN Note. I performed a substantive portion of the visit including all aspects of the following. My winslow findings include: History is [ 72-year-old male history of cardiac history including a pacemaker. Recent hospital admission. Patient had event in the line at the bank today. Prior to that he was feeling fine.] Exam is [ 72-year-old male vital signs are stable and afebrile. Pulse ox is 93% on room air no hypoxia. He is in distress. present in the room. HEENT exam unremarkable. Neck nontender no JVD. lungs clear to auscultation bilaterally. Heart paced on the monitor. Rate in the 60s. Chest wall nontender. Abdomen soft nontender. No peritoneal signs. Moving all 4 extremities. Nontender no deformity. Neurologically is awake and alert with no focal motor deficits.] Medical Decision Making [ 72-year-old male with a syncopal event. Extensive cardiac history with a pacemaker. Cardiac workup with screening labs.We will also attempt to get his pacemaker interrogated. ] Other additions or changes: [None] History & Record Review Discussion w/independent historian: Patient and Family Additional record(s) reviewed:: Prior inpatient record, Prior outpatient record, Prior ED visit and Prior labs Lab Data Attestation: I reviewed the patient's lab results. Lab results narrative: CBC unremarkable. White count of 5. H&H 13 and 38. Platelets 154. Electrolytes unremarkable gap of 4. BUN 28 creatinine 1.1 which is his baseline. Glucose of 222. Troponin at 20. Normal EKG was paced. Chest x-ray portable, single view shows a left-sided pacemaker. Prior rib fractures treated with plate and screws. No acute process. Labs: Laboratory Results - last 24 hr 02/02/23 13:25 WBC 5.5 RBC 4.20 L Hgb 13.0 Hct 38.8 L MCV 92.4 MCH 31.0 MCHC 33.5 RDW Std Deviation 44.8 H RDW Coeff of Cinda 13.4 Plt Count 154 MPV 10.8 Immature Gran % (Auto) 0.400 Neut % (Auto) 76.9 H Lymph % (Auto) 14.4 L [place] % (Auto) 6.5 Eos % (Auto) 1.6 Baso % (Auto) 0.2 Absolute Neuts (auto) 4.3 Absolute Lymphs (auto) 0.80 L Nucleated RBC % 0 Sodium 138 Potassium 3.7 Chloride 104 Carbon Dioxide 30.0 Anion Gap 4 L BUN 28 H Creatinine 1.12 Estim Creat Clear Calc 61.56 Est GFR (MDRD) Af Amer 83 Est GFR (MDRD) Non-Af 68 BUN/Creatinine Ratio 25.0 H Glucose 222 H Calcium 9.1 Troponin I High Sens 20 Radiography Chest X-Ray - ED: 1 View, Read by ED Physician, Read by Radiologist, Heart, Lungs, Mediastinum, Bony Structures, No Acute Disease and Chronic Changes Diagnostic Testing: Clinical Impression(s) from Imaging Studies Chest X-Ray 02/02/23 13:50 IMPRESSION: Stable examination. No acute abnormality is seen. Cardiomegaly. Electronically Signed: Mick García MD at 14:08 EST , Chest x-ray, portable, single view interpreted both by myself and the radiologist shows no acute abnormality. Sided pacemaker. There are rib fractures with plate and screws. Discharge Plan Triage Chief Complaint: Syncope ED Midlevel Provider: Irlanda Cadena ED Provider: Malcolm Chavez Dx/Rx/DC Orders Clinical Impression: Syncope Instructions: Causes of Syncope Prescriptions: No Action clopidogrel [Plavix] 75 mg tablet 75 mg PO DAILY atorvastatin 80 MG tablet 80 mg PO QHS aspirin 81 MG tablet 81 mg PO DAILY finasteride 5 MG tablet 5 mg PO DAILY escitalopram oxalate 10 MG tablet 10 mg PO DAILY cholecalciferol (vitamin D3) [Vitamin D3] 1,000 UNIT tablet 3,000 units PO DAILY Humulin R U-500 (Conc) Kwikpen 500 UNIT/ML insulin pen 105 unit subcut 1700 nitroglycerin 0.4 MG tablet, sublingual 0.4 mg sublingual Q5M PRN (Reason: Chest Pain) Qty: 30 0RF pantoprazole 40 MG tablet 40 mg PO BID carvedilol 25 MG tablet 25 mg PO BID ranolazine 500 mg Tablet Extended Release 12 Hr 500 mg PO Q12H tamsulosin 0.4 MG capsule 0.4 mg PO QHS magnesium oxide 420 mg Tablet 420 mg PO BID ketoconazole 2 % Shampoo 1 applic TOPICAL DAILY albuterol sulfate 2.5 mg /3 mL (0.083 %) Solution For Nebulization 2.5 mg INHALATION Q6H PRN (Reason: Shortness Of Breath Or Wheezing) multivitamin with minerals Tablet 1 tab PO DAILY ferrous sulfate 325 mg (65 mg iron) tablet 325 mg PO BID spironolactone [Aldactone] 25 mg tablet 25 mg PO DAILY acetaminophen [Tylenol] 325 MG tablet 650 mg PO Q8H PRN (Reason: PAIN ) Humulin R U-500 (Conc) Kwikpen 500 unit/mL (3 mL) insulin pen 125 unit subcut BREAKFAST cyclobenzaprine 10 mg tablet 10 mg PO BID PRN (Reason: MUSCLE SPASMS) Trelegy Ellipta 200-62.5-25 mcg blister with device 1 inh inhalation DAILY Patient Comments: PT STATES THIS IS A SAMPLE FROM DR. DIXON OFFICE AND IS WAITING ON THE [facility] TO APPROVE THIS THROUGH THEIR INSURANCE (01-27-23) Jardiance 25 mg Tablet 25 mg PO DAILY Qty: 30 2RF furosemide 40 mg Tablet 40 mg PO DAILY Qty: 0 0RF losartan 25 mg Tablet 25 mg PO DAILY Qty: 30 2RF Breztri Aerosphere 160-9-4.8 mcg/actuation HFA aerosol inhaler 2 inh inhalation BID Qty: 3 3RF Patient Comments: PT STATES THEY HAVE THE INHALER BUT IT DOES NOT WORK WELL FOR THEM guaifenesin 600 mg tablet extended release 12hr 1,200 mg PO Q12H PRN (Reason: cough) Qty: 120 11RF [facility] [Primary [facility] Provider] - Activity Restrictions/Additional Instructions: Your testing was within normal limits and your pacemaker was functioning normally during the event you had at the bank. I recommend you follow-up with your doctor at the [facility]. Disposition Disposition: Home, Self Care Discharge Date/Time: 02/02/23 15:19
[2023-02-02 13:39] LABS: Absolute Neutrophil Count 4.3 X10^3/uL (2.0-7.7); Basophil# 0.01 X10^3/uL; Basophil% 0.2 % (0-1); Eosinophil# 0.09 X10^3/uL; Eosinophils% 1.6 % (0-5); Hematocrit 38.8 % (40-54); Lymphocyte % 14.4 % (19-41); Mean Corp Hgb Conc 33.5 g/dL (32-36); Mean Corpuscular Volume 92.4 fL (80-94); Mean Platelet Vol. 10.8 fl (6.2-12.0); Monocyte# 0.36 X10^3/uL; Monocyte% 6.5 % (0-10); NRBC Flagged by Analyzer 0 % (0-5); Neutrophil # 4.26 X10^3/uL (2.7-7.7); Neutrophil % 76.9 % (47-70); Platelet Count 154 K/mm3 (150-450); RBC Distribution Width CV 13.4 % (11.6-14.6); RBC Distribution Width SD 44.8 fl (35.1-43.9); White Blood Count 5.5 K/mm3 (4.4-11.0)
[2023-02-02 13:45] VITALS: BP 128/60; PULSE 65; RESP 18; O2SAT 98
--- NOTE | 2023-02-02 13:50 | RAD_ITS ---
STUDY: X-RAY CHEST REASON FOR EXAM: Male, 72 years old. Chest pain TECHNIQUE: Single AP portable view of the chest. COMPARISON: Comparison is made with prior study dated January 27, 2023. FINDINGS: EKG electrodes are seen. Stable volume loss in the left hemithorax most likely secondary to prior left surgical intervention. This is stable. There is no demonstrated pleural abnormality. Sternal cerclage wires and vascular clips are present from a prior sternotomy and coronary artery bypass graft procedure (CABG). A left-sided dual-chamber pacemaker is seen. Mild cardiomegaly. Normal mediastinum and cata. Normal visualized pulmonary arteries. Normal visualized aortic arch and descending thoracic aorta. Normal visualized thoracic spine. Multiple ORIF of left sided rib fractures. There is no demonstrated abnormality of the visualized soft tissue structures of the upper abdomen. RAD/Chest 1 View (Portable) IMPRESSION: Stable examination. No acute abnormality is seen. Cardiomegaly. Electronically Signed: Mick García MD at 14:08 EST ,
[2023-02-02 13:58] LABS: Anion Gap 4 (5-15); BUN 28 mg/dL (7-18); Calcium,Total 9.1 mg/dL (8.5-10.1); Chloride 104 mmol/L (98-107); Creatinine, Serum 1.12 mg/dL (0.70-1.30); EST Glomerular Filtration Rate 68 mL/min (>60); Est Glom Filt Rate - Afr Amer 83 mL/min (>60); Estimated Creatinine Clearance 61.56 ml/min; Glucose 222 mg/dL (74-106); Potassium 3.7 mmol/L (3.5-5.1); Sodium Level 138 mmol/L (136-145); Troponin-I HS 20 pg/mL (3.0-78.0)
[2023-02-02] MEDS: Morphine 4 MG/ML Syringe IV (14:23)
[2023-02-02] MEDS: Ondansetron 4 MG/2 ML Vial IV (14:24)
[2023-02-02 15:14] VITALS: PULSE 72; RESP 18; O2SAT 98
== END 2023-02-02 15:19 | disposition home or self-care (01) ==
LOC: ED 14:20
PROVIDERS: Emergency Provider Emergency Medicine; Visit Provider Emergency Medicine
DX: R55 Syncope and collapse (principal); J44.9 Chronic obstructive pulmonary disease, unspecified; I50.9 Heart failure, unspecified; I11.0 Hypertensive heart disease with heart failure; E11.9 Type 2 diabetes mellitus without complications; Z79.4 Long term (current) use of insulin; E78.5 Hyperlipidemia, unspecified; I25.10 Atherosclerotic heart disease of native coronary artery without angina pectoris; Z95.0 Presence of cardiac pacemaker; Z87.891 Personal history of nicotine dependence; I25.2 Old myocardial infarction; Z86.73 Personal history of transient ischemic attack (TIA), and cerebral infarction without residual deficits; Z99.81 Dependence on supplemental oxygen; Z79.82 Long term (current) use of aspirin; Z79.899 Other long term (current) drug therapy; Z79.02 Long term (current) use of antithrombotics/antiplatelets; Z79.51 Long term (current) use of inhaled steroids; Z90.49 Acquired absence of other specified parts of digestive tract; Z95.5 Presence of coronary angioplasty implant and graft; Z96.652 Presence of left artificial knee joint
CPT/HCPCS: 71045; 80048; 84484; 85025; 93005; 96374; 96375; 99283; A4216; J2405

== ENCOUNTER 2023-02-16 02:57 | Emergency (ER) | payer OTHER, SELFPAY ==
[2023-02-16 03:00] VITALS: BP 142/70; PULSE 61; RESP 18; TEMP 36.1; O2SAT 99; BMI 34.4
[2023-02-16 03:06] VITALS: BP 142/70; PULSE 61; RESP 16; TEMP 36.1; O2SAT 99
[2023-02-16 03:13] VITALS: O2SAT 97
[2023-02-16 03:14] LABS: Absolute Lymphocyte Count 1.22 X10^3/uL (0.83-4.51); Absolute Neutrophil Count 4.9 X10^3/uL (2.0-7.7); Basophil# 0.02 X10^3/uL; Basophil% 0.3 % (0-1); Eosinophil# 0.13 X10^3/uL; Eosinophils% 1.9 % (0-5); Hematocrit 36.2 % (40-54); Hemoglobin 12.2 g/dL (13.0-16.5); Lymphocyte # 1.22 X10^3/ul (0.83-4.51); Lymphocyte % 17.7 % (19-41); Mean Corp Hgb Conc 33.7 g/dL (32-36); Mean Corpuscular Hgb 31.6 pg (27.0-32.0); Mean Corpuscular Volume 93.8 fL (80-94); Mean Platelet Vol. 10.7 fl (6.2-12.0); Monocyte# 0.64 X10^3/uL; Monocyte% 9.3 % (0-10); NRBC Flagged by Analyzer 0 % (0-5); Neutrophil # 4.87 X10^3/uL (2.7-7.7); Neutrophil % 70.4 % (47-70); Platelet Count 140 K/mm3 (150-450); RBC Distribution Width CV 13.9 % (11.6-14.6); RBC Distribution Width SD 46.5 fl (35.1-43.9); Red Blood Count 3.86 M/mm3 (4.6-6.2); White Blood Count 6.9 K/mm3 (4.4-11.0)
--- NOTE | 2023-02-16 03:25 | RAD_ITS ---
EXAM: XR CHEST, 1 VIEW CLINICAL INDICATION: chest pain chest pain TECHNIQUE: Frontal view of the chest. COMPARISON: Chest x-ray 02/02/2023. FINDINGS: LUNGS AND PLEURAL SPACES: Unremarkable. No consolidation or edema. No pneumothorax. No effusion. HEART: Unremarkable. Cardiac silhouette not enlarged. MEDIASTINUM: Central airways and mediastinal contour are unremarkable. BONES/JOINTS: There are sternotomy wires. There are metallic fixation plates and screws overlying multiple left rib segments. There are multilevel degenerative changes in the visualized spine. There is an old healed right clavicular fracture. SOFT TISSUES: Unremarkable. TUBES, LINES AND DEVICES: The heart is mildly enlarged. There is atrioventricular pacemaker. RAD/Chest 1 View (Portable) IMPRESSION: 1. Mild cardiomegaly. Pacemaker. 2. No evidence for acute cardiopulmonary pathology. Electronically Signed: Andrea Rocha MD at 5:05 EST Reading Location ID and State: [facility] / [place] , Service support ,
[2023-02-16 03:35] LABS: Anion Gap 7 (5-15); BUN 28 mg/dL (7-18); BUN/Creat Ratio 20.7 RATIO (10-20); Calcium,Total 8.3 mg/dL (8.5-10.1); Chloride 103 mmol/L (98-107); Creatinine, Serum 1.35 mg/dL (0.70-1.30); EST Glomerular Filtration Rate 55 mL/min (>60); Est Glom Filt Rate - Afr Amer 67 mL/min (>60); Estimated Creatinine Clearance 51.07 ml/min; Glucose 114 mg/dL (74-106); Sodium Level 140 mmol/L (136-145); Troponin-I HS (w/2H Reflex) 28 pg/mL (3.0-78.0)
[2023-02-16 03:55] VITALS: BP 134/70; PULSE 61; RESP 16; O2SAT 100
[2023-02-16 05:00] VITALS: BP 130/70; PULSE 60; RESP 16; O2SAT 100
[2023-02-16] MEDS: Morphine 4 MG/ML Syringe IV (05:06)
[2023-02-16] MEDS: diazePAM 5 MG Tablet PO (05:06)
[2023-02-16] MEDS: Ondansetron 4 MG/2 ML Vial IV (05:07)
[2023-02-16 05:12] LABS: Reflex Troponin-HS? (from REC) Y
--- NOTE | 2023-02-16 05:43 | EDS_ITS ---
HPI History of Present Illness Chief Complaint: Chest Pain Informant: patient and spouse/S.O. Narrative Narrative: Patient is a 72-year-old male with past medical history of COPD on chronic oxygen as well as congestive heart failure and previous rib fractures and recurrent chest pain. 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 He reports that over the last few days he has had bilateral chest/rib pain that worsens when he tries to sit up and move. He states that there has been no recent trauma and he denies any fevers or chills or need for increasing oxygen demand. He states that he has been taking his home medications as directed and trying [id number] medications for pain relief but this is not been helping and secondary to this he comes in for evaluation [facility] Medical History (Updated 02/17/23 @ 00:[address] Richy Clifford, ) Abnormal EKG Anemia Atherosclerotic heart disease iliamna coronary artery w/angina pectoris BiPAP (biphasic positive airway pressure) dependence CAD (coronary artery disease) Chest pain Chronic hyperglycemia Chronic respiratory failure Congestive heart failure (CHF) Conversion reaction COPD (chronic obstructive pulmonary disease) Diabetes DM type 2 (diabetes mellitus, type 2) DNR (do not resuscitate) DNR (do not resuscitate) discussion Dysarthria Essential (primary) hypertension Former smoker Heart failure Hemiparesis, left History of fractured rib History of TIAs Hyperlipidemia Myocardial infarct Obesity On home oxygen therapy EKATERINA (obstructive sleep apnea) EKATERINA (obstructive sleep apnea) Pacemaker Pacemaker battery depletion Pulmonary embolism Sick sinus syndrome Stroke/cerebrovascular accident Wears hearing aid in both ears Home Medications aspirin 81 mg tablet,delayed release 81 mg PO DAILY HEART HEALTH 06/11/18 [History Last Taken 01/26/23] atorvastatin 80 mg tablet 80 mg PO QHS cholesterol 06/11/18 [History Last Taken 01/26/23] cholecalciferol (vitamin D3) 25 mcg (1,000 unit) tablet (Vitamin D3) 3,000 units PO DAILY supplement 06/11/18 [History Last Taken 01/26/23] escitalopram oxalate 10 mg tablet 10 mg PO DAILY depression 06/11/18 [History Last Taken 01/26/23] finasteride 5 mg tablet 5 mg PO DAILY prostate 06/11/18 [History Last Taken 01/26/23] insulin regular hum U-500 conc 500 unit/mL(3 mL) subcut pen (Humulin R U-500 (Conc) Insulin Kwikpen) 120 unit subcut 1700 DIABETES 06/11/18 [History Last Taken 01/26/23] nitroglycerin 0.4 mg sublingual tablet 0.4 mg sublingual Q5M PRN Chest Pain #30 TABLETS 07/22/18 [Rx Last Taken 01/17/20] pantoprazole 40 mg tablet,delayed release 40 mg PO BID GERD 05/18/20 [History Last Taken 01/26/23] carvedilol 25 mg tablet 25 mg PO BID blood pressure 06/22/20 [History Last Taken 01/26/23] ranolazine 500 mg tablet,extended release,12 hr 500 mg PO Q12H chest pain 06/22/20 [History Last Taken 01/26/23] tamsulosin 0.4 mg capsule 0.4 mg PO QHS PROSTATE 08/10/20 [History Last Taken 01/26/23] clopidogrel 75 mg tablet (Plavix) 75 mg PO DAILY blood thinner 01/07/21 [History Last Taken 01/26/23] albuterol sulfate 2.5 mg/3 mL (0.083 %) solution for nebulization 2.5 mg inhalation Q6H PRN Shortness Of Breath Or Wheezing 12/12/21 [History Last Taken 01/25/23] ketoconazole 2 % shampoo 1 applic topical DAILY dry scalp 12/12/21 [History Last Taken 01/26/23] magnesium oxide 420 mg tablet 420 mg PO BID SUPPLEMENT 12/12/21 [History Last Taken 01/26/23] multivitamin with minerals 1 tab PO DAILY SUPPLEMENT 12/12/21 [History Last Taken 01/26/23] spironolactone 25 mg tablet (Aldactone) 25 mg PO DAILY blood pressure 09/10/22 [History Last Taken 01/26/23] budesonide 160 mcg-glycopyr 9 mcg-formot 4.8 mcg/actuation HFA inhaler (Breztri Aerosphere) 2 inh inhalation BID SHORTNESS OF BREATH #3 ea 11/17/22 [Rx Last Taken Unknown] guaifenesin 600 mg tablet, extended release 12 hr 1,200 mg (2 x 600 mg) PO Q12H PRN cough #120 tabs 11/17/22 [Rx Last Taken 01/26/23] acetaminophen 325 mg tablet (Tylenol) 650 mg PO Q8H PRN PAIN 01/27/23 [History Last Taken 01/25/23] cyclobenzaprine 10 mg tablet 10 mg PO BID PRN MUSCLE SPASMS 01/27/23 [History Last Taken Unknown] insulin regular hum U-500 conc 500 unit/mL(3 mL) subcut pen (Humulin R U-500 (Conc) Insulin Kwikpen) 120 unit subcut BREAKFAST DIABETES 01/27/23 [History Last Taken 01/26/23] furosemide 40 mg tablet 40 mg PO DAILY #0 tabs 01/29/23 [Rx Last Taken Unknown] diazepam 2 mg tablet (Valium) 2 mg PO TID PRN muscle spasm 5 days #15 tabs 02/16/23 [Rx Last Taken Unknown] Allergy/AdvReac Type Severity Reaction Status Date / Time ezetimibe Allergy Unknown Verified 02/16/23 03:08 Fish Containing Products Allergy Unknown Verified 02/16/23 03:08 glyburide Allergy Unknown Verified 02/16/23 03:08 isosorbide Allergy PT UNSURE Verified 02/04/23 12:39 OF REACTION lisinopril Allergy Unknown Verified 02/16/23 03:08 metformin Allergy Nausea Verified 02/16/23 03:08 metoprolol Allergy Unknown Verified 02/16/23 03:08 simvastatin Allergy Unknown Verified 02/16/23 03:08 tramadol Allergy Other Verified 02/16/23 03:08 iron AdvReac Mild Vomiting Verified 02/16/23 03:08 gabapentin AdvReac Other Verified 02/16/23 03:08 Family History Father No problems noted. Surgical History (Updated 02/06/23 @ 00:02 by Emerson Pedroza) H/O coronary artery bypass surgery History of cholecystectomy History of coronary artery stent placement History of knee replacement procedure of left knee History of permanent cardiac pacemaker placement (01/14/21) Social History household members: spouse Smoking Status: Former smoker details: Unknown substance use type: does not use ROS ROS ED Constitutional Constitutional ED: Denies chills or fever(s) ENT ENT ED: Denies sore throat Cardiovascular Cardiovascular: Reports chest pain; Denies palpitations or racing heartbeat Respiratory/Chest Respiratory/Chest: Denies cough or dyspnea Gastrointestinal Gastrointestinal: Denies abdominal pain, diarrhea, nausea or vomiting Genitourinary Genitourinary ED: Denies dysuria Musculoskeletal Musculoskeletal: Reports myalgias Integumentary Denies rash Neurologic Neurologic: Denies headache(s) Hematologic/Lymphatic Hematologic/Lymphatic: Reports easy bleeding and easy bruising EXAM Physical Exam Const Vital Signs: 02/16/23 03:00 02/16/23 03:06 02/16/23 03:13 Temperature 97.0 F L 97.0 F L Temperature Source Temporal Temporal Pulse Rate 61 61 Respiratory Rate 18 16 Blood Pressure 142/70 H 142/70 H Blood Pressure Mean 94 94 Pulse Ox 99 99 97 Oxygen Delivery Method Nasal Cannula Room Air Nasal Cannula Oxygen Flow Rate (L/min) 4 02/16/23 03:55 02/16/23 05:00 02/16/23 06:12 Temperature Temperature Source Pulse Rate 61 60 80 Respiratory Rate 16 16 18 Blood Pressure 134/70 H 130/70 H 127/67 H Blood Pressure Mean 91 90 87 Pulse Ox 100 100 95 Oxygen Delivery Method Room Air Nasal Cannula Oxygen Flow Rate (L/min) 4 Positive well nourished, well developed and obese General Appearance ED: well developed Nutritional Appearance: obese HEENT HEENT Narrative: Mucous membranes are dry and tacky but show no airway edema or compromise No secondary changes in the posterior pharynx to suggest infection Eyes PERRL and EOMs intact bilaterally General Eye ED: Negative for scleral icterus Neck supple Neck Narrative: Patient has bilateral paracervical tension and spasm noted without bony deformity or step-off of the cervical spine and no midline pain on palpation No meningeal signs noted Chest Wall Chest Narrative: There is bilateral anterior/lateral pain with palpation of the right and left chest wall that worsens with motion such as sitting or lying down. There is no bony deformity or crepitance or overlying soft tissue changes Resp Resp Narrative: Breath sounds are diminished throughout with faint expiratory wheeze consistent with history of COPD but no nasal flaring retractions tachypnea or accessory muscle use Cardio regular rate and regular rhythm GI normal to inspection, nondistended, normoactive bowel sounds, non-tender, non- distended and no masses GI Narrative: No voluntary guarding or rigidity or pulsatile mass Auscultation: normoactive bowel sounds Palpation: soft Extremity Extremity Narrative: Trace pitting edema the bilateral lower extremities that is equal and symmetric Negative Homans' sign bilaterally Neuro oriented x3 and CN's II-XII intact bilaterally Sensorium / Orientation: alert Psych mental status grossly normal Skin no rashes or lesions noted Skin Narrative: No overlying soft tissue changes to suggest trauma or infection MDM MDM MDM Narrative Medical decision making narrative: Patient presented to the ED for slightly hypertensive otherwise with stable vitals satting in the high 90s on his normal 4 L. He reported bilateral chest pain that is worse with motion. This is most consistent with musculoskeletal chest wall pain but as he does have significant past medical history there is concern this could be atypical acute coronary syndrome versus pneumonia versus pneumothorax versus congestive heart failure. A basic workup was obtained which showed no clinically significant findings. Patient's troponins were 28 and 30 which were not clinically significantly elevated and upon chart review very similar to the previous values that he had with multiple visits throughout the month of January. His chest x-ray revealed no acute lung pathology such as pneumonia or pneumothorax or mass. At this time vitals are stable and after being treated with morphine and Valium he has had improvement of his symptoms. As this does not appear to be acute coronary syndrome with his EKG being paced and his troponins being at baseline and symptoms being worse with motion I do not feel there is need for inpatient workup and patient can be discharged home History & Record Review Discussion w/independent historian: Patient and Significant other Lab Data Attestation: I reviewed the patient's lab results. Labs: Laboratory Results - last 24 hr 02/16/23 02/16/23 03:09 05:17 WBC 6.9 RBC 3.86 L Hgb 12.2 L Hct 36.2 L MCV 93.8 MCH 31.6 MCHC 33.7 RDW Std Deviation 46.5 H RDW Coeff of Cinda 13.9 Plt Count 140 L MPV 10.7 Immature Gran % (Auto) 0.400 Neut % (Auto) 70.4 H Lymph % (Auto) 17.7 L Rooks % (Auto) 9.3 Eos % (Auto) 1.9 Baso % (Auto) 0.3 Absolute Neuts (auto) 4.9 Absolute Lymphs (auto) 1.22 Nucleated RBC % 0 Sodium 140 Potassium 4.0 Chloride 103 Carbon Dioxide 30.0 Anion Gap 7 BUN 28 H Creatinine 1.35 H Estim Creat Clear Calc 51.07 Est GFR (MDRD) Af Amer 67 Est GFR (MDRD) Non-Af 55 L BUN/Creatinine Ratio 20.7 H Glucose 114 H Calcium 8.3 L Troponin I High Sens 28 30 Radiography Diagnostic Testing: Clinical Impression(s) from Imaging Studies Chest X-Ray 02/16/23 03:25 IMPRESSION: 1. Mild cardiomegaly. Pacemaker. 2. No evidence for acute cardiopulmonary pathology. Electronically Signed: Andrea Rocha MD at 5:05 EST , Chest x-ray as interpreted by the emergency medicine physician reveals cardiomegaly with pacemaker intact and in place without pneumothorax infiltrate or significant pleural effusion Discharge Plan Triage Chief Complaint: Chest Pain ED Provider: Richy Clifford Dx/Rx/DC Orders Clinical Impression: Muscle spasm, Nonspecific chest pain, Congestive heart failure (CHF), COPD (chronic obstructive pulmonary disease) Instructions: ED Chest Pain, Uncertain Cause, ED Muscle Spasm Prescriptions: New diazepam [Valium] 2 mg tablet 2 mg PO TID PRN (Reason: muscle spasm) 5 Days Qty: 15 0RF No Action clopidogrel [Plavix] 75 mg tablet 75 mg PO DAILY atorvastatin 80 MG tablet 80 mg PO QHS aspirin 81 MG tablet 81 mg PO DAILY finasteride 5 MG tablet 5 mg PO DAILY escitalopram oxalate 10 MG tablet 10 mg PO DAILY cholecalciferol (vitamin D3) [Vitamin D3] 1,000 UNIT tablet 3,000 units PO DAILY Humulin R U-500 (Conc) Kwikpen 500 UNIT/ML insulin pen 120 unit subcut 1700 nitroglycerin 0.4 MG tablet, sublingual 0.4 mg sublingual Q5M PRN (Reason: Chest Pain) Qty: 30 0RF pantoprazole 40 MG tablet 40 mg PO BID carvedilol 25 MG tablet 25 mg PO BID ranolazine 500 mg Tablet Extended Release 12 Hr 500 mg PO Q12H tamsulosin 0.4 MG capsule 0.4 mg PO QHS magnesium oxide 420 mg Tablet 420 mg PO BID ketoconazole 2 % Shampoo 1 applic TOPICAL DAILY albuterol sulfate 2.5 mg /3 mL (0.083 %) Solution For Nebulization 2.5 mg INHALATION Q6H PRN (Reason: Shortness Of Breath Or Wheezing) multivitamin with minerals Tablet 1 tab PO DAILY spironolactone [Aldactone] 25 mg tablet 25 mg PO DAILY acetaminophen [Tylenol] 325 MG tablet 650 mg PO Q8H PRN (Reason: PAIN ) Humulin R U-500 (Conc) Kwikpen 500 unit/mL (3 mL) insulin pen 120 unit subcut BREAKFAST cyclobenzaprine 10 mg tablet 10 mg PO BID PRN (Reason: MUSCLE SPASMS) furosemide 40 mg Tablet 40 mg PO DAILY Qty: 0 0RF Breztri Aerosphere 160-9-4.8 mcg/actuation HFA aerosol inhaler 2 inh inhalation BID Qty: 3 3RF Patient Comments: PT STATES THEY HAVE THE INHALER BUT IT DOES NOT WORK WELL FOR THEM guaifenesin 600 mg tablet extended release 12hr 1,200 mg PO Q12H PRN (Reason: cough) Qty: 120 11RF [facility] [Primary Care Provider] - Activity Restrictions/Additional Instructions: Your workup today did not show pneumonia or signs of heart damage and your pacemaker is working properly. This indicates that your chest pain is musculoskeletal in nature and therefore try the Valium as directed to help control any pain and spasm. Return to the ER should you have any further concerns Disposition Disposition: Home, Self Care Discharge Date/Time: 02/16/23 06:13
[2023-02-16 05:57] LABS: Troponin-I HS 30 pg/mL (3.0-78.0)
[2023-02-16 06:12] VITALS: BP 127/67; PULSE 80; RESP 18; O2SAT 95
== END 2023-02-16 06:13 | disposition home or self-care (01) ==
PROVIDERS: Emergency Provider Emergency Medicine; Visit Provider Emergency Medicine
DX: R07.9 Chest pain, unspecified (principal); J44.9 Chronic obstructive pulmonary disease, unspecified; I11.0 Hypertensive heart disease with heart failure; I50.9 Heart failure, unspecified; E11.9 Type 2 diabetes mellitus without complications; Z79.4 Long term (current) use of insulin; M62.838 Other muscle spasm; Z87.891 Personal history of nicotine dependence; Z86.73 Personal history of transient ischemic attack (TIA), and cerebral infarction without residual deficits; E78.5 Hyperlipidemia, unspecified; I25.2 Old myocardial infarction; I5A Non-ischemic myocardial injury (non-traumatic); Z99.81 Dependence on supplemental oxygen; Z79.82 Long term (current) use of aspirin; Z79.899 Other long term (current) drug therapy; Z79.02 Long term (current) use of antithrombotics/antiplatelets; Z79.51 Long term (current) use of inhaled steroids; Z90.49 Acquired absence of other specified parts of digestive tract; Z95.5 Presence of coronary angioplasty implant and graft; Z96.652 Presence of left artificial knee joint
CPT/HCPCS: 71045; 80048; 84484; 85025; 93005; 96374; 96375; 99284; A4216; J2405

== ENCOUNTER 2023-03-04 07:32 | Observation (INO) | payer OTHER, SELFPAY ==
[2023-03-04] VITALS (18 sets, daily range): BP systolic 119–140; BP diastolic 65–88; PULSE 59–90; RESP 16–18; TEMP 35.7–36.6; O2SAT 94–100; BMI 36.4; BMI 34.3
--- NOTE | 2023-03-04 07:49 | CT_ITS ---
We are attempting to reach an attending provider to discuss findings. An addendum with communication details will be sent when the communication is complete. HISTORY: Neuro deficit, acute, stroke suspected. TECHNIQUE: Multiple axial images were obtained of the head without intravenous contrast. A radiation dose optimization technique was used for this scan. 268 images. COMPARISON: 08/19/2022. FINDINGS: BRAIN PARENCHYMA: Multiple foci and zones of low attenuation in the bilateral cerebral white matter compatible with chronic small vessel ischemic gliosis. No acute intra-axial hemorrhage identified. CSF SPACES: Generalized volume loss. No midline shift or other significant mass effect. No acute extra-axial hemorrhage seen. OTHER: Intact calvarium. Ethmoid osteoma. Unremarkable orbits. ASPECTS Score for Acute Strokes: 10 CT/STROKE Brain/Head without Cont IMPRESSION: No acute intracranial process identified. Chronic involutional and white matter changes. Electronically Signed: Michelle Tomlinson MD at 8:13 EST ,
--- NOTE | 2023-03-04 07:49 | EKG12_ITS ---
Test Reason : NEURO Blood Pressure : / mmHG Vent. Rate : 062 BPM Atrial Rate : 062 BPM P-R Int : 196 ms QRS Dur : 164 ms QT Int : 550 ms P-R-T Axes : 000 -63 119 degrees QTc Int : 558 ms AV dual-paced rhythm Abnormal ECG Confirmed by PADILLA GUALLPA, CALI ([id number]), photographic editor NADINE FERRER ([id number]) on 03/06/2023 7:58:39 AM Referred By: Confirmed By:CALI CAUSEY MD
--- NOTE | 2023-03-04 07:50 | CT_ITS ---
We are attempting to reach an attending provider to discuss findings. An addendum with communication details will be sent when the communication is complete. HISTORY: Neuro deficit, acute, stroke suspected. TECHNIQUE: [place]/head and carotid CT angiogram protocol was performed after the intravenous administration of 100 mL Isovue 370. NASCET criteria using the distal ICAs for comparison were used for evaluation of stenoses. 3D reconstructions were reviewed. A radiation dose optimization technique was used for this scan. 686 images. COMPARISON: CT head same day. FINDINGS: AORTIC ARCH AND BRANCHES: Bovine arch configuration. Mild calcified plaque. RIGHT CCA: Less than 20% stenosis at the bifurcation. No occlusion, significant stenosis or dissection. RIGHT ICA: Less than 30% stenosis proximally. No occlusion, significant stenosis or dissection. LEFT CCA: Less than 30% stenosis at the bifurcation. No occlusion, significant stenosis or dissection. LEFT ICA: Less than 30% stenosis at the origin. Small proximal ulceration. No occlusion, significant stenosis or dissection. RIGHT VERTEBRAL ARTERY: Mild calcified plaque at the origin with up to 30% stenosis. No occlusion, significant stenosis or dissection. LEFT VERTEBRAL ARTERY: Calcified plaque proximally less than 50% stenosis. No occlusion, significant stenosis or dissection. OTHER: Cardiac pacemaker, coronary artery bypass graft, and midline sternotomy noted. Borderline-enlarged mediastinal lymph nodes. 1.2 cm mildly enlarged left super clavicular lymph node. Old right clavicle fracture. Chronic left rib fractures with cortical plate and screw fixation. ICAs: No significant stenosis at the intracranial/visualized segments. Atherosclerosis at both carotid siphons. ACAs: No significant stenosis at the visualized segments. MCAs: No significant stenosis at the visualized segments. bat person: No significant stenosis at the visualized segments. BASILAR ARTERY: No significant stenosis. VERTEBRAL ARTERIES: No significant stenosis at the intradural/visualized segments. No evidence of intracranial aneurysm or vascular malformation. CT/STROKE CTA Head AND Neck W/Con IMPRESSION: No evidence for significant stenosis or occlusion in the carotid or vertebral arteries of the neck. Mildly enlarged left supraclavicular lymph node, nonspecific. No evidence for large vessel occlusion or other focal vascular abnormality in the [place] region. Electronically Signed: Michelle Tomlinson MD at 8:32 EST ,
--- NOTE | 2023-03-04 07:51 | CT_ITS ---
HISTORY: chest pain. TECHNIQUE: CT angiogram of the chest was performed after the intravenous administration of 100 mL Isovue-370. Post-processing of the angiographic images was performed with multiplanar reformation and 3D reconstruction. Individualized dose optimization techniques were used for this CT. 1269 images. COMPARISON: XR 02/16/2023, CTA 06/04/2022. FINDINGS: CENTRAL AIRWAYS: Mild fluid in the distal trachea extending to the right bronchus. LUNGS: Mild centrilobular emphysema with chronic mild scarring in the left lower lobe. PLEURA: Chronic mild left pleural effusion with pleural thickening. HEART/PERICARDIUM: Heart within normal limits in size with coronary artery bypass graft, midline sternotomy, and pacemaker in place. No pericardial effusion. PULMONARY ARTERIES: No filling defect. AORTA/VESSELS: No thoracic aortic aneurysm or dissection flap. MEDIASTINUM/PATRICIA: 1.1 cm left supraclavicular lymph node. Mildly enlarged mediastinal lymph nodes measuring up to 1.2 cm right paratracheal and 1.8 cm subcarinal again seen. OSSEOUS STRUCTURES: Old right clavicle fracture. Chronic left rib fractures with cortical plate and screw fixation. UPPER ABDOMEN: Cholecystectomy. CT/CTA Chest W/WO Contrast IMPRESSION: No evidence of pulmonary embolism. Chronic mild left pleural effusion with left lower lobe scarring. Mild mediastinal lymphadenopathy, similar to prior. Mildly enlarged left supraclavicular lymph node. Electronically Signed: Michelle Tomlinson MD at 8:53 EST ,
--- NOTE | 2023-03-04 07:52 | ED.VIS.CHEST ---
HPI History of Present Illness Chief Complaint: Chest Pain Detail of Chief Complaint: Chest pain, left-sided weakness and paresthesias Informant: patient Narrative Narrative: Patient presents to the emergency department complaint of chest pain that has had for 5 days off-and-on. Pain sometimes lasts minutes or hours. At times pain is sharp. At times it is in his back radiating into his neck. Patient states he went to bed around 10:00 last night feeling otherwise well. He he woke up and went to the bathroom this morning and kind of fell or passed out in the bed on the way back from the bathroom. He noted that he had some weakness to his left side and numbness to his left arm and left leg. Patient states he woke up that way. Patient has history of prior stroke and history of prior CABG. Currently on aspirin and Plavix. Patient has history of chronic chest pain. Patient's also states that he passed out in triage as well. [facility] Medical History (Updated 03/04/23 @ 10:[address] Belle Holman MD) Abnormal EKG Anemia Atherosclerotic heart disease [place] coronary artery w/angina pectoris BiPAP (biphasic positive airway pressure) dependence CAD (coronary artery disease) Chest pain Chronic hyperglycemia Chronic respiratory failure Congestive heart failure (CHF) Conversion reaction COPD (chronic obstructive pulmonary disease) Diabetes DM type 2 (diabetes mellitus, type 2) DNR (do not resuscitate) DNR (do not resuscitate) discussion Dysarthria Essential (primary) hypertension Former smoker Heart failure Hemiparesis, left History of fractured rib History of TIAs Hyperlipidemia Myocardial infarct Obesity On home oxygen therapy EKATERINA (obstructive sleep apnea) EKATERINA (obstructive sleep apnea) Pacemaker Pacemaker battery depletion Pulmonary embolism Sick sinus syndrome Stroke/cerebrovascular accident Wears hearing aid in both ears Home Medications aspirin 81 mg tablet,delayed release 81 mg PO DAILY HEART HEALTH 06/11/18 [History Last Taken 03/03/23] atorvastatin 80 mg tablet 80 mg PO QHS CHOLESTEROL 06/11/18 [History Last Taken 03/03/23] escitalopram oxalate 10 mg tablet 10 mg PO DAILY DEPRESSION 06/11/18 [History Last Taken 03/03/23] finasteride 5 mg tablet 5 mg PO DAILY PROSTATE 06/11/18 [History Last Taken 03/03/23] insulin regular hum U-500 conc 500 unit/mL(3 mL) subcut pen (Humulin R U-500 (Conc) Insulin Kwikpen) 130 unit subcut BID DIABETES 06/11/18 [History Last Taken 03/03/23] nitroglycerin 0.4 mg sublingual tablet 0.4 mg sublingual Q5M PRN CHEST PAIN #30 TABLETS 07/22/18 [Rx Last Taken 01/17/20] pantoprazole 40 mg tablet,delayed release 40 mg PO BID GERD 05/18/20 [History Last Taken 03/03/23] carvedilol 25 mg tablet 25 mg PO BID BLOOD PRESSURE 06/22/20 [History Last Taken 03/03/23] ranolazine 500 mg tablet,extended release,12 hr 500 mg PO Q12H CHEST PAIN 06/22/20 [History Last Taken 03/03/23] tamsulosin 0.4 mg capsule 0.4 mg PO QHS PROSTATE 08/10/20 [History Last Taken 03/03/23] clopidogrel 75 mg tablet (Plavix) 75 mg PO DAILY BLOOD THINNER 01/07/21 [History Last Taken 03/03/23] albuterol sulfate 2.5 mg/3 mL (0.083 %) solution for nebulization 2.5 mg inhalation Q6H PRN SHORTNESS OF BREATH/WHEEZING 12/12/21 [History Last Taken 03/03/23] ketoconazole 2 % shampoo 1 applic topical DAILY DRY SCALP 12/12/21 [History Last Taken 03/03/23] magnesium oxide 420 mg tablet 420 mg PO BID SUPPLEMENT 12/12/21 [History Last Taken 03/03/23] multivitamin with minerals 1 tab PO DAILY SUPPLEMENT 12/12/21 [History Last Taken 03/03/23] spironolactone 25 mg tablet (Aldactone) 25 mg PO DAILY BLOOD PRESSURE 09/10/22 [History Last Taken 03/03/23] guaifenesin 600 mg tablet, extended release 12 hr 1,200 mg (2 x 600 mg) PO Q12H PRN COUGH/CONGESTION #120 tabs 11/17/22 [Rx Last Taken 03/03/23] acetaminophen 325 mg tablet (Tylenol) 650 mg PO 4X/DAY PRN PAIN 01/27/23 [History Last Taken 03/03/23] cyclobenzaprine 10 mg tablet 10 mg PO BID PRN MUSCLE SPASMS 01/27/23 [History Last Taken 03/03/23] furosemide 40 mg tablet 40 mg PO DAILY EDEMA #0 tabs 01/29/23 [Rx Last Taken 03/03/23] diazepam 2 mg tablet (Valium) 2 mg PO TID PRN MUSCLE SPASMS 5 days #15 tabs 02/16/23 [Rx Last Taken 03/04/23] budesonide 160 mcg-glycopyr 9 mcg-formot 4.8 mcg/actuation HFA inhaler (Breztri Aerosphere) 2 inh inhalation BID SHORTNESS OF BREATH 03/04/23 [History Last Taken 03/03/23] carboxymethylcellulose sodium 0.5 % eye drops 1 drp EACH EYE TID PRN EYE DRYNESS 03/04/23 [History Last Taken 03/03/23] cholecalciferol (vitamin D3) 50 mcg (2,000 unit) capsule (D3-2000) 100 mcg PO DAILY SUPPLEMENT 03/04/23 [History Last Taken 03/03/23] empagliflozin 25 mg tablet (Jardiance) 25 mg PO DAILY DIABETES 03/04/23 [History Last Taken 03/03/23] guaifenesin 100 mg/5 mL oral liquid 200 mg PO TID PRN CONGESTION 03/04/23 [History Last Taken 03/03/23] Allergy/AdvReac Type Severity Reaction Status Date / Time ezetimibe Allergy Unknown Verified 02/16/23 03:08 Fish Containing Products Allergy Unknown Verified 02/16/23 03:08 glyburide Allergy Unknown Verified 02/16/23 03:08 isosorbide Allergy PT UNSURE Verified 02/04/23 12:39 OF REACTION lisinopril Allergy Unknown Verified 02/16/23 03:08 metformin Allergy Nausea Verified 02/16/23 03:08 metoprolol Allergy Unknown Verified 02/16/23 03:08 simvastatin Allergy Unknown Verified 02/16/23 03:08 tramadol Allergy Other Verified 02/16/23 03:08 iron AdvReac Mild Vomiting Verified 02/16/23 03:08 gabapentin AdvReac Other Verified 02/16/23 03:08 Family History Father No problems noted. Surgical History H/O coronary artery bypass surgery History of cholecystectomy History of coronary artery stent placement History of knee replacement procedure of left knee History of permanent cardiac pacemaker placement (01/14/21) Social History household members: spouse Smoking Status: Former smoker details: Unknown substance use type: does not use ROS ROS ED Review of Systems ROS Unobtainable: other Constitutional Constitutional ED: Reports lethargy; Denies chills, fever(s), sweats or weight loss Eyes Eyes: Denies blurry vision, change in vision or diplopia ENT ENT ED: Denies rhinorrhea or sore throat Cardiovascular Cardiovascular: Reports chest pain; Denies orthopnea or racing heartbeat Respiratory/Chest Respiratory/Chest: Denies cough, dyspnea, dyspnea on exertion, orthopnea or sputum Gastrointestinal Gastrointestinal: Denies abdominal pain, diarrhea, nausea or vomiting Genitourinary Genitourinary ED: Denies dysuria, hematuria or urinary frequency Musculoskeletal Musculoskeletal: Denies arthralgias, back pain, myalgias or neck pain Integumentary Denies abscess, Abrasions or rash Neurologic Neurologic: Reports paresthesias and weakness; Denies headache(s) Psychiatric Psychiatric: Denies anxiety, depression or suicidal thoughts Endocrine Endocrinology: Denies polydipsia, polyphagia or polyuria Hematologic/Lymphatic Hematologic/Lymphatic: Denies easy bleeding, easy bruising or lymphadenopathy Allergic/Immunologic Allergic/Immunologic ED: Denies mouth swelling, tongue swelling or urticaria EXAM Physical Exam Const Vital Signs: 03/04/23 07:32 03/04/23 07:54 03/04/23 08:10 Temperature 96.2 F L Temperature Source Temporal Pulse Rate 61 Respiratory Rate 16 Respiratory Effort Normal Non-Labored Blood Pressure 127/65 H Blood Pressure Mean 85 Pulse Ox 97 100 Oxygen Delivery Method Room Air Nasal Cannula Oxygen Flow Rate (L/min) 4 03/04/23 08:10 03/04/23 08:13 03/04/23 08:30 Temperature Temperature Source Pulse Rate 90 62 85 Respiratory Rate 18 16 16 Respiratory Effort Blood Pressure 119/76 119/76 122/72 H Blood Pressure Mean 90 90 88 Pulse Ox 100 98 100 Oxygen Delivery Method Nasal Cannula Nasal Cannula Room Air Oxygen Flow Rate (L/min) 4 4 03/04/23 09:00 03/04/23 09:34 Temperature Temperature Source Pulse Rate 62 62 Respiratory Rate 16 18 Respiratory Effort Blood Pressure 123/67 H 131/71 H Blood Pressure Mean 85 91 Pulse Ox 100 100 Oxygen Delivery Method Room Air Room Air Oxygen Flow Rate (L/min) Positive well nourished and well developed General Appearance ED: well developed and NAD HEENT Reports TM's clear and moist mucous membranes normocephalic and atraumatic; Negative for trauma or tenderness Tympanic Membrane ED: Yes TM's clear Eyes PERRL and EOMs intact bilaterally General Eye ED: Negative for pale conjunctiva or scleral icterus Neck no lymphadenopathy, supple and no JVD General: Negative for tenderness Chest Wall inspection of chest normal and palpation of chest normal Chest: Negative for tenderness Resp normal respiratory effort and clear to auscultation bilaterally Effort and Inspection: Negative for respiratory distress or pain with movement Auscultation: Negative for rhonchi, wheezes or diminished lung sounds Cardio regular rate, regular rhythm, S1 normal heart sound, S2 normal heart sound and no murmurs Peripheral Pulses: pulses 2+ throughout GI normal to inspection, nondistended, normoactive bowel sounds, soft to palpation, non-tender, non-distended and no masses Back/Spine no CVA tenderness and no thoracic nor lumbar tenderness Extremity normal to inspection General Extremety ED: Negative for edema General Extremity: Negative for edema Neuro oriented x3, CN's II-XII intact bilaterally, no sensory deficits noted and gait normal Neuro Narrative: Patient with left-sided weakness compared to right side. Decree sensation to left arm and left leg. No facial droop. NIH stroke scale was a 6. Sensorium / Orientation: awake, alert, oriented to person, oriented to place and oriented to time Motor Exam: strength 5/5 throughout and strength abnormal Psych mental status grossly normal Skin no rashes or lesions noted and no wounds MDM MDM MDM Narrative Medical decision making narrative: Patient presents with intermittent chest pain and now tells me he woke up with the numbness to his left side and weakness. He tells me he is passed out a few times. Denies recent illness. Stroke team was called after evaluating the patient. He and his both told me that numbness and the weakness in the left side was new but then apparently they recounted to the nursing staff that he gets this intermittently. He was initially stroke scale NIH was a 6 for me. Patient not a thrombolytic candidate as he woke up with symptoms and last known well was last evening at [address] scan of the right without contrast was unremarkable. EKG obtained on arrival showed a paced rhythm with rate of 62 bpm. CBC with differential showed white count 7.4 with hemoglobin of 12.6 and platelet count of 151. Chemistries were unremarkable. BUN was 26 and creatinine 1.5. Troponin was normal at 25. CTA of the chest was unremarkable and CTA of the head and neck were unremarkable. Patient was evaluated by stroke neurologist who recommended admission for stroke completion workup. Will discuss case with hospitalist to evaluate for admission. Lab Data Attestation: I reviewed the patient's lab results. Labs: Laboratory Results - last 24 hr 03/04/23 03/04/23 07:52 08:19 WBC 7.4 RBC 3.95 L Hgb 12.6 L Hct 37.4 L MCV 94.7 H MCH 31.9 MCHC 33.7 RDW Std Deviation 48.9 H RDW Coeff of Cinda 14.4 Plt Count 151 MPV 11.0 Immature Gran % (Auto) 0.400 Neut % (Auto) 71.5 H Lymph % (Auto) 16.8 L [place] % (Auto) 8.9 Eos % (Auto) 1.9 Baso % (Auto) 0.5 Absolute Neuts (auto) 5.3 Absolute Lymphs (auto) 1.24 Nucleated RBC % 0 PT 15.1 H INR 1.2 APTT 39.0 H Sodium 136 Potassium 4.1 Chloride 99 Carbon Dioxide 31.0 Anion Gap 6 BUN 26 H Creatinine 1.54 H Estim Creat Clear Calc 55.15 Est GFR (MDRD) Af Amer 57 L Est GFR (MDRD) Non-Af 47 L BUN/Creatinine Ratio 16.9 Glucose 141 H Calcium 8.7 Troponin I High Sens 25 POC Glucose 157 H Radiography Diagnostic Testing: Clinical Impression(s) from Imaging Studies Brain CT 03/04/23 07:49 IMPRESSION: No acute intracranial process identified. Chronic involutional and white matter changes. Electronically Signed: Michelle Tomlinson MD at 8:13 EST , ADDENDUM: 03/04/23 0821 IMPRESSION: No acute intracranial process identified. Chronic involutional and white matter changes. N.B. : The above Results were Read Back by Michelle Tomlinson MD to Jaydon Armstrong DO, and understanding confirmed on 03/04/2023 08:14:37 (ET). Electronically Signed: Michelle Tomlinson MD at 8:13 EST , Head/Neck CTA 03/04/23 07:50 IMPRESSION: No evidence for significant stenosis or occlusion in the carotid or vertebral arteries of the neck. Mildly enlarged left supraclavicular lymph node, nonspecific. No evidence for large vessel occlusion or other focal vascular abnormality in the [place]. Electronically Signed: Michelle Tomlinson MD at 8:32 EST , ADDENDUM: 03/04/23 0842 IMPRESSION: No evidence for significant stenosis or occlusion in the carotid or vertebral arteries of the neck. Mildly enlarged left supraclavicular lymph node, nonspecific. No evidence for large vessel occlusion or other focal vascular abnormality in the [place]. N.B. : The above Results were Read Back by Michelle Tomlinson MD to Jaydon Armstrong DO, and understanding confirmed on 03/04/2023 08:35:07 (ET). Electronically Signed: Michelle Tomlinson MD at 8:32 EST , Chest CTA 03/04/23 07:51 IMPRESSION: No evidence of pulmonary embolism. Chronic mild left pleural effusion with left lower lobe scarring. Mild mediastinal lymphadenopathy, similar to prior. Mildly enlarged left supraclavicular lymph node. Electronically Signed: Michelle Tomlinson MD at 8:53 EST , EKG Initial EKG: Attestation: I personally reviewed and interpreted this EKG as follows: Comments: Rate of 62 bpm withVentricularly paced rhythm with left bundle branch block morphology Discharge Plan Dx/Rx/DC Orders Clinical Impression: Syncope, Acute CVA (cerebrovascular accident), History of CAD (coronary artery disease), Chest pain Disposition Disposition: [facility] Discharge Date/Time: 03/04/23 10:27 Capacity Legal [employer] Reflex Medical hold order details:: IF a medical hold is selected below, a suggested order for a MEDICAL HOLD will reflex upon signing the document. Next of kin: [place] law dictates a PRIORITY LIST for identifying legal decision-maker/legal next of kin in the following order (LNOK): 1st: The patient?s legal guardian, if any 2nd: The patient's spouse (if status is questionable, consult Risk Management) 3rd: The patient?s adult child(stuart) (majority, if multiple children) 4th: The patient?s parents 5th: The patient?s adult siblings (majority, if multiple children siblings)
[2023-03-04 08:11] LABS: Bedside Glucose 157 mg/dL (74-106)
[2023-03-04] MEDS: Ondansetron 4 MG/2 ML Vial IV (08:22)
[2023-03-04] MEDS: 0.9% Normal Saline (1000mL) 1,000 ML 100 ML IV (08:23)
[2023-03-04] MEDS: Morphine 4 MG/ML Syringe IV (08:23)
[2023-03-04 08:29] LABS: Absolute Lymphocyte Count 1.24 X10^3/uL (0.83-4.51); Absolute Neutrophil Count 5.3 X10^3/uL (2.0-7.7); Basophil# 0.04 X10^3/uL; Basophil% 0.5 % (0-1); Eosinophil# 0.14 X10^3/uL; Eosinophils% 1.9 % (0-5); Hematocrit 37.4 % (40-54); Hemoglobin 12.6 g/dL (13.0-16.5); Lymphocyte # 1.24 X10^3/ul (0.83-4.51); Lymphocyte % 16.8 % (19-41); Mean Corp Hgb Conc 33.7 g/dL (32-36); Mean Corpuscular Hgb 31.9 pg (27.0-32.0); Mean Corpuscular Volume 94.7 fL (80-94); Monocyte# 0.66 X10^3/uL; Monocyte% 8.9 % (0-10); NRBC Flagged by Analyzer 0 % (0-5); Neutrophil # 5.27 X10^3/uL (2.7-7.7); Neutrophil % 71.5 % (47-70); Platelet Count 151 K/mm3 (150-450); RBC Distribution Width CV 14.4 % (11.6-14.6); RBC Distribution Width SD 48.9 fl (35.1-43.9); Red Blood Count 3.95 M/mm3 (4.6-6.2); White Blood Count 7.4 K/mm3 (4.4-11.0)
[2023-03-04 08:39] LABS: International Normalized Ratio 1.2; Prothrombin Time (Protime)PT. 15.1 SECONDS (11.7-14.9)
[2023-03-04 08:49] LABS: Anion Gap 6 (5-15); BUN 26 mg/dL (7-18); BUN/Creat Ratio 16.9 RATIO (10-20); Calcium,Total 8.7 mg/dL (8.5-10.1); Chloride 99 mmol/L (98-107); Creatinine, Serum 1.54 mg/dL (0.70-1.30); EST Glomerular Filtration Rate 47 mL/min (>60); Est Glom Filt Rate - Afr Amer 57 mL/min (>60); Estimated Creatinine Clearance 55.15 ml/min; Glucose 141 mg/dL (74-106); Potassium 4.1 mmol/L (3.5-5.1); Sodium Level 136 mmol/L (136-145); Troponin-I HS 25 pg/mL (3.0-78.0)
--- NOTE | 2023-03-04 10:00 | PCM.HP.STD ---
HPI - General General Date of Admission: 03/04/23 Date of Service: 03/04/23 Chief Complaint: Chest pain and left sided numbness HPI Narrative GIOVANNY LEONARDO, is a 72 M with history of diabetes mellitus, COPD with chronic hypoxic respiratory failure on 4 L of home O2, CAD status post CABG, pacemaker, reported previous CVA who presented to [facility] with multiple complaints. Reportedly for about 5 days has had some pain rating from his back to his chest to his jaw that is sometimes pressure sometimes sharp sometimes [id number] and comes and goes, went to bed last night and woke up this morning with left-sided numbness and possibly new left-sided weakness though he endorsed he had some chronic left-sided weakness from previous stroke but was inconsistent with report and history, in ED stroke call was made, no acute stroke on CT and no occlusion on CTA so was recommended patient be admitted for stroke workup. In ED troponin negative and EKG paced and he had CTA as well with chronic mild left pleural effusion with left lower lobe scarring with no PE. Hospitalist contacted for admission and endorses history as above. Says he still has the pain from back across chest up to neck though symptoms pressure but also [id number] , feels his decree sensation and weakness on left side is the same from earlier. Breathing at baseline, patient did also endorse episode of loss of consciousness earlier today but said he frequently will pass out for a few minutes and then wake up and sometimes is lightheaded and sometimes has shortness of breath, symptoms vague and difficulty describing timeline but denies that this is a new problem. No other acute complaints. [facility] Medical History (Updated 03/04/23 @ 10:[address] Belle Holman MD) Abnormal EKG Anemia Atherosclerotic heart disease mary[place] coronary artery w/angina pectoris BiPAP (biphasic positive airway pressure) dependence CAD (coronary artery disease) Chest pain Chronic hyperglycemia Chronic respiratory failure Congestive heart failure (CHF) Conversion reaction COPD (chronic obstructive pulmonary disease) Diabetes DM type 2 (diabetes mellitus, type 2) DNR (do not resuscitate) DNR (do not resuscitate) discussion Dysarthria Essential (primary) hypertension Former smoker Heart failure Hemiparesis, left History of fractured rib History of TIAs Hyperlipidemia Myocardial infarct Obesity On home oxygen therapy EKATERINA (obstructive sleep apnea) EKATERINA (obstructive sleep apnea) Pacemaker Pacemaker battery depletion Pulmonary embolism Sick sinus syndrome Stroke/cerebrovascular accident Wears hearing aid in both ears Home Medications aspirin 81 mg tablet,delayed release 81 mg PO DAILY HEART HEALTH 06/11/18 [History Last Taken 03/03/23] atorvastatin 80 mg tablet 80 mg PO QHS CHOLESTEROL 06/11/18 [History Last Taken 03/03/23] escitalopram oxalate 10 mg tablet 10 mg PO DAILY DEPRESSION 06/11/18 [History Last Taken 03/03/23] finasteride 5 mg tablet 5 mg PO DAILY PROSTATE 06/11/18 [History Last Taken 03/03/23] insulin regular hum U-500 conc 500 unit/mL(3 mL) subcut pen (Humulin R U-500 (Conc) Insulin Kwikpen) 130 unit subcut BID DIABETES 06/11/18 [History Last Taken 03/03/23] nitroglycerin 0.4 mg sublingual tablet 0.4 mg sublingual Q5M PRN CHEST PAIN #30 TABLETS 07/22/18 [Rx Last Taken 01/17/20] pantoprazole 40 mg tablet,delayed release 40 mg PO BID GERD 05/18/20 [History Last Taken 03/03/23] carvedilol 25 mg tablet 25 mg PO BID BLOOD PRESSURE 06/22/20 [History Last Taken 03/03/23] ranolazine 500 mg tablet,extended release,12 hr 500 mg PO Q12H CHEST PAIN 06/22/20 [History Last Taken 03/03/23] tamsulosin 0.4 mg capsule 0.4 mg PO QHS PROSTATE 08/10/20 [History Last Taken 03/03/23] clopidogrel 75 mg tablet (Plavix) 75 mg PO DAILY BLOOD THINNER 01/07/21 [History Last Taken 03/03/23] albuterol sulfate 2.5 mg/3 mL (0.083 %) solution for nebulization 2.5 mg inhalation Q6H PRN SHORTNESS OF BREATH/WHEEZING 12/12/21 [History Last Taken 03/03/23] ketoconazole 2 % shampoo 1 applic topical DAILY DRY SCALP 12/12/21 [History Last Taken 03/03/23] magnesium oxide 420 mg tablet 420 mg PO BID SUPPLEMENT 12/12/21 [History Last Taken 03/03/23] multivitamin with minerals 1 tab PO DAILY SUPPLEMENT 12/12/21 [History Last Taken 03/03/23] spironolactone 25 mg tablet (Aldactone) 25 mg PO DAILY BLOOD PRESSURE 09/10/22 [History Last Taken 03/03/23] guaifenesin 600 mg tablet, extended release 12 hr 1,200 mg (2 x 600 mg) PO Q12H PRN COUGH/CONGESTION #120 tabs 11/17/22 [Rx Last Taken 03/03/23] acetaminophen 325 mg tablet (Tylenol) 650 mg PO 4X/DAY PRN PAIN 01/27/23 [History Last Taken 03/03/23] cyclobenzaprine 10 mg tablet 10 mg PO BID PRN MUSCLE SPASMS 01/27/23 [History Last Taken 03/03/23] furosemide 40 mg tablet 40 mg PO DAILY EDEMA #0 tabs 01/29/23 [Rx Last Taken 03/03/23] diazepam 2 mg tablet (Valium) 2 mg PO TID PRN MUSCLE SPASMS 5 days #15 tabs 02/16/23 [Rx Last Taken 03/04/23] budesonide 160 mcg-glycopyr 9 mcg-formot 4.8 mcg/actuation HFA inhaler (Breztri Aerosphere) 2 inh inhalation BID SHORTNESS OF BREATH 03/04/23 [History Last Taken 03/03/23] carboxymethylcellulose sodium 0.5 % eye drops 1 drp EACH EYE TID PRN EYE DRYNESS 03/04/23 [History Last Taken 03/03/23] cholecalciferol (vitamin D3) 50 mcg (2,000 unit) capsule (D3-2000) 100 mcg PO DAILY SUPPLEMENT 03/04/23 [History Last Taken 03/03/23] empagliflozin 25 mg tablet (Jardiance) 25 mg PO DAILY DIABETES 03/04/23 [History Last Taken 03/03/23] guaifenesin 100 mg/5 mL oral liquid 200 mg PO TID PRN CONGESTION 03/04/23 [History Last Taken 03/03/23] Allergy/AdvReac Type Severity Reaction Status Date / Time ezetimibe Allergy Unknown Verified 02/16/23 03:08 Fish Containing Products Allergy Unknown Verified 02/16/23 03:08 glyburide Allergy Unknown Verified 02/16/23 03:08 isosorbide Allergy PT UNSURE Verified 02/04/23 12:39 OF REACTION lisinopril Allergy Unknown Verified 02/16/23 03:08 metformin Allergy Nausea Verified 02/16/23 03:08 metoprolol Allergy Unknown Verified 02/16/23 03:08 simvastatin Allergy Unknown Verified 02/16/23 03:08 tramadol Allergy Other Verified 02/16/23 03:08 iron AdvReac Mild Vomiting Verified 02/16/23 03:08 gabapentin AdvReac Other Verified 02/16/23 03:08 Family History Father No problems noted. Surgical History H/O coronary artery bypass surgery History of cholecystectomy History of coronary artery stent placement History of knee replacement procedure of left knee History of permanent cardiac pacemaker placement (01/14/21) Social History household members: spouse Smoking Status: Former smoker details: Unknown substance use type: does not use ROS ROS Narrative General: Denies fever/chills HENT: Denies headache, denies stuffy nose, denies sore throat EYES: Chronic changes in vision Resp: Chronic shortness of breath and chronic cough Cardiac: Has pain on right side of back and across chest to the right side of jaw GI: Denies abdominal pain, denies changes in bowel, denies nausea/vomiting : Denies changes in urination Extremity: Denies swelling MSK: Reports left-sided weakness Neuro: Reports left-sided numbness Heme: Denies any bleeding or bruising Skin: Denies rashes Psychiatric: No complaints voiced Vital Signs Vital Signs Vital Signs: 03/04/23 07:32 03/04/23 07:54 03/04/23 08:10 Temperature 96.2 F L Temperature Source Temporal Pulse Rate 61 Respiratory Rate 16 Respiratory Effort Normal Non-Labored Blood Pressure 127/65 H Blood Pressure Mean 85 Pulse Ox 97 100 Oxygen Delivery Method Room Air Nasal Cannula Oxygen Flow Rate (L/min) 4 03/04/23 08:10 03/04/23 08:13 03/04/23 08:30 Temperature Temperature Source Pulse Rate 90 62 85 Respiratory Rate 18 16 16 Respiratory Effort Blood Pressure 119/76 119/76 122/72 H Blood Pressure Mean 90 90 88 Pulse Ox 100 98 100 Oxygen Delivery Method Nasal Cannula Nasal Cannula Room Air Oxygen Flow Rate (L/min) 4 4 03/04/23 09:00 03/04/23 09:34 Temperature Temperature Source Pulse Rate 62 62 Respiratory Rate 16 18 Respiratory Effort Blood Pressure 123/67 H 131/71 H Blood Pressure Mean 85 91 Pulse Ox 100 100 Oxygen Delivery Method Room Air Room Air Oxygen Flow Rate (L/min) Weight Weight: 115.3 kg Body Mass Index (BMI) 36.4 Physical Exam Narrative General: Alert, oriented, no apparent distress HEENT: Atraumatic, normocephalic Eyes: Anicteric, normal conjunctiva, extraocular movements intact, pupils equal Neck: Supple Respiratory: Clear to auscultation bilaterally, normal respiratory effort Cardiovascular: Regular rate and rhythm GI: Soft, nontender, nondistended Extremities: No edema Musculoskeletal: Strength 5 out of 5 in right upper extremity, 2+ out of 5 left upper extremity, 5 out of 5 right lower extremity, 2+ out of 5 left lower extremity Neuro: Endorses decreased sensation on left side compared to right, cranial nerves II through XII intact, [id number] without significant difficulty bilaterally, was able to lift his left arm himself to assist himself with [id number] test Skin: No rashes appreciated Psych: Cooperative Results Lab / Micro Data 03/04/23 08:19 03/04/23 08:19 Labs: Laboratory Results - last 24 hr 03/04/23 07:52: POC Glucose 157 H 03/04/23 08:19: WBC 7.4, RBC 3.95 L, Hgb 12.6 L, Hct 37.4 L, MCV 94.7 H, MCH 31.9, MCHC 33.7, RDW Std Deviation 48.9 H, RDW Coeff of Cinda 14.4, Plt Count 151, MPV 11.0, Immature Gran % (Auto) 0.400, Neut % (Auto) 71.5 H, Lymph % (Auto) 16.8 L, [place] % (Auto) 8.9, Eos % (Auto) 1.9, Baso % (Auto) 0.5, Absolute Neuts (auto) 5.3, Absolute Lymphs (auto) 1.24, Nucleated RBC % 0, PT 15.1 H, INR 1.2, APTT 39.0 H, Sodium 136, Potassium 4.1, Chloride 99, Carbon Dioxide 31.0, Anion Gap 6, BUN 26 H, Creatinine 1.54 H, Estim Creat Clear Calc 55.15, Est GFR (MDRD) Af Amer 57 L, Est GFR (MDRD) Non-Af 47 L, BUN/Creatinine Ratio 16.9, Glucose 141 H, Calcium 8.7, Troponin I High Sens 25 Imagaing Radiology Impression Brain CT 03/04/23 07:49 IMPRESSION: No acute intracranial process identified. Chronic involutional and white matter changes. Electronically Signed: Michelle Tomlinson MD at 8:13 EST , ADDENDUM: 03/04/23 0821 IMPRESSION: No acute intracranial process identified. Chronic involutional and white matter changes. N.B. : The above Results were Read Back by Michelle Tomlinson MD to Jaydon Armstrong DO, and understanding confirmed on 03/04/2023 08:14:37 (ET). Electronically Signed: Michelle Tomlinson MD at 8:13 EST , Head/Neck CTA 03/04/23 07:50 IMPRESSION: No evidence for significant stenosis or occlusion in the carotid or vertebral arteries of the neck. Mildly enlarged left supraclavicular lymph node, nonspecific. No evidence for large vessel occlusion or other focal vascular abnormality in the [place] region. Electronically Signed: Michelle Tomlinson MD at 8:32 EST , ADDENDUM: 03/04/23 0842 IMPRESSION: No evidence for significant stenosis or occlusion in the carotid or vertebral arteries of the neck. Mildly enlarged left supraclavicular lymph node, nonspecific. No evidence for large vessel occlusion or other focal vascular abnormality in the [place] region. N.B. : The above Results were Read Back by Michelle Tomlinson MD to Jaydon DO Patti, and understanding confirmed on 03/04/2023 08:35:07 (ET). Electronically Signed: Michelle Tomlinson MD at 8:32 EST Reading Location ID and State: [facility] / [place] Tel , Service support , Chest CTA 03/04/23 07:51 IMPRESSION: No evidence of pulmonary embolism. Chronic mild left pleural effusion with left lower lobe scarring. Mild mediastinal lymphadenopathy, similar to prior. Mildly enlarged left supraclavicular lymph node. Electronically Signed: Michelle Tomlinson MD at 8:53 EST , Assessment & Plan Assessment/Plan (1) Left-sided weakness: (2) COPD (chronic obstructive pulmonary disease): QUALIFIERS: COPD type: emphysema Emphysema type: centrilobular Qualified Code(s): J43.2 - Centrilobular emphysema (3) History of CAD (coronary artery disease): (4) Congestive heart failure (CHF): (5) Syncope: PLAN: Plan # Left-sided decreased sensation and weakness upper and lower -Exam with inconsistent resistance and results on left side but certainly cannot rule out acute CVA given the differences between the 2 sides -Admit to tele -CT head w/ chronic changes in ED -CTA head and neck no acute changes -MRI ordered, patient has pacemaker but has been able to have MRI in the past -NIH q4hr -asa, statin, continue Plavix -Previously negative bubble study -PT/OT/Speech eval -Hold BP medications to allow for permissive hypertension for 24 hours unless SBP greater than 220 or DBP greater than 120 or until stroke is ruled out -Consult neurology, patient was not tPA candidate as last known normal was last night when he went to bed around 10 PM # Atypical chest pain -Patient's pain very vague and nonspecific and not classic for cardiac chest pain but does have cardiac history -Will obtain limited echo to assess for any new wall motion changes and we will cycle troponins -EKG with paced rhythm -CTA chest with no PE or other acute process # Episodes of passing out -Reportedly does this chronically, will interrogate pacemaker, patient getting echo and MRI -Will be giving some gentle hydration -May need orthostats -EKG was paced -First troponin within normal limits # History of coronary artery disease status post CABG/pacemaker -Continue aspirin, Plavix, statin -Chest pain workup as above # Chronic hypoxic respiratory failure on 4 L home O2 -Continue inhalers -On home O2 -Follows with pulmonology #Type 2 diabetes mellitus -Glucose checks and sliding scale insulin -Continue patient's home insulin but at lower dose until verifying patient tolerating p.o. with swallow eval # History of BPH with obstruction -Continue tamsulosin and Flomax # Chronic heart failure with midrange ejection fraction -45% on echo in 2022, not in acute exacerbation -Continue Lasix and spironolactone -Monitor volume status # Worsening kidney function -Slight worsening from baseline but does not meet criteria for CONI -Gentle hydration's and will recheck -If worsens or does not improve will need further workup # Mildly enlarged left supraclavicular lymph node -1.1 cm -Noted on CT scan #DVT ppx: SCDs Belle Holman MD Time spent in the patient's overall evaluation,decision-making process, review of diagnostic data, adjustment of management, discussion with other providers, nursing nursing and ancillary staff involved in patient's care documentation, 56 minutes Charges/Coding Visit Charges Inpatient E&M: 74153 Init Hosp L2
--- NOTE | 2023-03-04 10:11 | ECHOLC_ITS ---
Reason For Study: CHEST PAIN Procedure This was a limited 2D transthoracic echocardiogram. The study was technically difficult. Contrast injection was performed. Patient was scanned in supine position during reflux assessment. Exam performed portable in patient room. Left Ventricle Normal LV size. The estimated ejection fraction is 45-50 %. Right Ventricle Normal right ventricle. Normal systolic function. Atria Normal left atrium. Normal right atrium. Mitral Valve Mitral valve not well visualized. Tricuspid Valve Normal tricuspid valve. Aortic Valve Trisinus/trileaflet aortic valve. Pulmonic Valve The pulmonic valve is not well visualized. Great Vessels The aortic root is not well visualized. Pericardium/Pleural No pericardial effusion. Medication Diluted definity 2ml given slow IV push to enhance endocardial definition. MMode/2D Measurements & Calculations LVIDd: 5.2 cm IVSd: 1.0 cm Ao root diam: 3.5 cm LVIDs: 4.0 cm LVPWd: 1.2 cm FS: 22.8 % LAV(MOD-bp): 78.5 ml LVAd ap4: 45.5 cm2 LVAd ap2: 46.7 cm2 LAV(MOD-bp) Indexed: 34.0 ml/m2 LVLd ap4: 8.0 cm LVLd ap2: 8.7 cm LAV(MOD-sp2): 53.8 ml EDV(MOD-sp4): 202.4 ml EDV(MOD-sp2): 207.6 ml LAV(MOD-sp4): 107.1 ml EDV(sp4-el): 220.0 ml EDV(sp2-el): 212.5 ml LVAs ap4: 32.1 cm2 LVAs ap2: 32.5 cm2 LVLs ap4: 7.7 cm LVLs ap2: 7.4 cm ESV(MOD-sp4): 106.1 ml ESV(MOD-sp2): 115.7 ml ESV(sp4-el): 113.5 ml ESV(sp2-el): 120.2 ml EF(MOD-sp4): 47.6 % EF(MOD-sp2): 44.3 % EF(sp4-el): 48.4 % SV(MOD-sp4): 96.4 ml SV(MOD-sp2): 92.0 ml SV(sp4-el): 106.5 ml LA A4 area: 27.6 cm2 LA dimension(2D): 5.2 cm Time Measurements MV dec time: 0.20 sec Doppler Measurements & Calculations MV E max pavan: 66.2 cm/sec MV A max pavan: 53.4 cm/sec MV dec slope: 326.1 cm/sec2 MV E/A: 1.2 ECHO/Echo Limited w/Contrast Interpretation Summary The estimated ejection fraction is 45-50 %. Hypokinesia Limited echo study. No significant change from prior echocardiogram. Ordering Physician: Belle Holman Performed By: Margaret Brown RDCS
--- NOTE | 2023-03-04 10:11 | MRI_ITS ---
STUDY: MRI BRAIN WITHOUT CONTRAST REASON FOR EXAM: Male, 72 years old. cva r/o, TECHNIQUE: Standardized multiplanar fat and water weighted pulse sequences were obtained. COMPARISON: Head CT dated March 04, 2023 FINDINGS: There is mild cerebral atrophy with widening of the extra-axial spaces and ventricular dilatation. There are multiple white matter hyperintensities, distributed throughout the deep white matter tracts of the cerebral hemispheres, consistent with moderate chronic white matter ischemic changes. There is no evidence for recent intracranial ischemia or other cause of cytotoxic edema on diffusion weighted imaging (DWI). Normal T2* images of the brain without demonstrated susceptibility artifact. There is no demonstrated hemosiderin stain. An old lacunar infarct is present in the head of the right caudate nucleus. Normal thalami. There is no extra-axial fluid accumulation. Normal flow voids within the major intracranial circulation suggesting patency by spin echo criteria. Normal sella turcica, pituitary gland, infundibular stalk, optic chiasm and hypothalamus. Normal tectal plate and pineal gland. Normal midbrain, juan and medulla. Normal cerebellum. Normal basal cisterns. Normal bilateral temporal bones. Normal bilateral internal auditory canals. No demonstrated orbital abnormality, within the constraints of a routine brain study. Normal visualized paranasal sinuses. Normal calvarium and skull base. Normal visualized soft tissue structures. Normal visualized upper cervical spine. MRI/Brain without Contrast IMPRESSION: Involutional and chronic ischemic changes of the brain, as described above. Electronically Signed: Robb Temple MD at 12:24 EST ,
--- NOTE | 2023-03-04 10:18 | ED.RN ---
CALLED [facility] TO MAKE [facility] AWARE [facility] PT ADMISSION, LEFT A CONFIDENTIAL VOICEMAIL.
--- NOTE | 2023-03-04 11:16 | EKG12_ITS ---
Test Reason : Blood Pressure : / mmHG Vent. Rate : 064 BPM Atrial Rate : 064 BPM P-R Int : 194 ms QRS Dur : 204 ms QT Int : 540 ms P-R-T Axes : 000 -57 124 degrees QTc Int : 557 ms AV dual-paced rhythm Abnormal ECG When compared with ECG of 04-MAR-2023 08:23, MANUAL COMPARISON REQUIRED, DATA IS UNCONFIRMED Confirmed by PADILLA GUALLPA, CALI ([id number]), map editor NADINE FERRER ([id number]) on 03/06/2023 10:42:30 AM Referred By: Confirmed By:CALI CAUSEY MD
[2023-03-04 11:53] LABS: Bedside Glucose 167 mg/dL (74-106)
[2023-03-04 11:58] LABS: Troponin-I HS 29 pg/mL (3.0-78.0)
[2023-03-04] MEDS: oxyCODONE 5 MG Tablet PO (12:26)
[2023-03-04] MEDS: Insulin Lispro 100 UNIT/ML INSULN.PEN SC ×3 (12:27→21:34)
[2023-03-04] MEDS: Acetaminophen 325 MG Tablet 650 MG PO (12:27)
--- NOTE | 2023-03-04 12:53 | CON.PCM.NE_ITS ---
Assessment and Plan: Stroke Assessment/Plan GIOVANNY LEONARDO is a 72 M with a history of diabetes mellitus, COPD with chronic hypoxic respiratory failure on 4 L of home O2, CAD status post CABG, pacemaker, reported previous CVA who presented to [facility] with worsening left sided weakness, numbness, dysarthria upon waking up. Stroke alert was called. Not a thrombolysis candidate as he was out of time window. Worsening left sided symptoms r/o new stroke vs recrudescence Neurological examination shows Dysarthria, left hemiparesis, left sided sensory loss. Neuroimaging shows CT Negative, CTA no LVO Plan Continue antiplatelets ASA,Plavix (Home meds) Continue statin to keep LDL <70 Recommend MRI Brain non contrast TTE HbA1C, FLP PT, OT eval/Speech/swallow eval DVT prophylaxis Management of pain per primary team Thanks or the consultation I spent 70 min in evaluation, chart review and coordination of care HPI Consult Data Date of Consult: 03/04/23 HPI Narrative HPI Narrative: GIOVANNY LEONARDO, is a 72 M with history of diabetes mellitus, COPD with chronic hypoxic respiratory failure on 4 L of home O2, CAD status post CABG, pacemaker, reported previous CVA who presented to [facility] with multiple complaints. For about 5 days has had some pain in back to his chest, neck which sharp sometimes [id number] and comes and goes. He went to bed last night and woke up this morning with left-sided numbness and worsening left-sided we akness and numbness. Also has worsening dysarthria. At baseline he had some residual weakness and numbness. Stroke alert was called. Not a thrombolysis candidate as he was out of time window. CT head negative for stroke CTA of head and neck negative for stenosis and LVO Troponin: Negative EKG paced CTA chest: Chronic mild left pleural effusion with left lower lobe scarring with no PE. [facility] Medical History (Updated 03/04/23 @ 10:[address] Belle Holman MD) Abnormal EKG Anemia Atherosclerotic heart disease [place] coronary artery w/angina pectoris BiPAP (biphasic positive airway pressure) dependence CAD (coronary artery disease) Chest pain Chronic hyperglycemia Chronic respiratory failure Congestive heart failure (CHF) Conversion reaction COPD (chronic obstructive pulmonary disease) Diabetes DM type 2 (diabetes mellitus, type 2) DNR (do not resuscitate) DNR (do not resuscitate) discussion Dysarthria Essential (primary) hypertension Former smoker Heart failure Hemiparesis, left History of fractured rib History of TIAs Hyperlipidemia Myocardial infarct Obesity On home oxygen therapy EKATERINA (obstructive sleep apnea) EKATERINA (obstructive sleep apnea) Pacemaker Pacemaker battery depletion Pulmonary embolism Sick sinus syndrome Stroke/cerebrovascular accident Wears hearing aid in both ears Home Medications aspirin 81 mg tablet,delayed release 81 mg PO DAILY HEART HEALTH 06/11/18 [H istory Last Taken 03/03/23] atorvastatin 80 mg tablet 80 mg PO QHS CHOLESTEROL 06/11/18 [History Last Taken 03/03/23] escitalopram oxalate 10 mg tablet 10 mg PO DAILY DEPRESSION 06/11/18 [History Last Taken 03/03/23] finasteride 5 mg tablet 5 mg PO DAILY PROSTATE 06/11/18 [History Last Taken 03/03/23] insulin regular hum U-500 conc 500 unit/mL(3 mL) subcut pen (Humulin R U-500 (Conc) Insulin Kwikpen) 130 unit subcut BID DIABETES 06/11/18 [History Last Taken 03/03/23] nitroglycerin 0.4 mg sublingual tablet 0.4 mg sublingual Q5M PRN CHEST PAIN #30 TABLETS 07/22/18 [Rx Last Taken 01/17/20] pantoprazole 40 mg tablet,delayed release 40 mg PO BID GERD 05/18/20 [History Last Taken 03/03/23] carvedilol 25 mg tablet 25 mg PO BID BLOOD PRESSURE 06/22/20 [History Last Taken 03/03/23] ranolazine 500 mg tablet,extended release,12 hr 500 mg PO Q12H CHEST PAIN 06/22/20 [History Last Taken 03/03/23] tamsulosin 0.4 mg capsule 0.4 mg PO QHS PROSTATE 08/10/20 [History Last Taken 03/03/23] clopidogrel 75 mg tablet (Plavix) 75 mg PO DAILY BLOOD THINNER 01/07/21 [History Last Taken 03/03/23] albuterol sulfate 2.5 mg/3 mL (0.083 %) solution for nebulization 2.5 mg inhalation Q6H PRN SHORTNESS OF BREATH/WHEEZING 12/12/21 [History Last Taken 03/03/23] ketoconazole 2 % shampoo 1 applic topical DAILY DRY SCALP 12/12/21 [History Last Taken 03/03/23] magnesium oxide 420 mg tablet 420 mg PO BID SUPPLEMENT 12/12/21 [History Last Taken 03/03/23] multivitamin with minerals 1 tab PO DAILY SUPPLEMENT 12/12/21 [History Last Taken 03/03/23] spironolactone 25 mg tablet (Aldactone) 25 mg PO DAILY BLOOD PRESSURE 09/10/22 [History Last Taken 03/03/23] guaifenesin 600 mg tablet, extended release 12 hr 1,200 mg (2 x 600 mg) PO Q12H PRN COUGH/CONGESTION #120 tabs 11/17/22 [Rx Last Taken 03/03/23] acetaminophen 325 mg tablet (Tylenol) 650 mg PO 4X/DAY PRN PAIN 01/27/23 [History Last Taken 03/03/23] cyclobenzaprine 10 mg tablet 10 mg PO BID PRN MUSCLE SPASMS 01/27/23 [History Last Taken 03/03/23] furosemide 40 mg tablet 40 mg PO DAILY EDEMA #0 tabs 01/29/23 [Rx Last Taken 03/03/23] diazepam 2 mg tablet (Valium) 2 mg PO TID PRN MUSCLE SPASMS 5 days #15 tabs 02/16/23 [Rx Last Taken 03/04/23] budesonide 160 mcg-glycopyr 9 mcg-formot 4.8 mcg/actuation HFA inhaler (Breztri Aerosphere) 2 inh inhalation BID SHORTNESS OF BREATH 03/04/23 [History Last Taken 03/03/23] carboxymethylcellulose sodium 0.5 % eye drops 1 drp EACH EYE TID PRN EYE DRYNESS 03/04/23 [History Last Taken 03/03/23] cholecalciferol (vitamin D3) 50 mcg (2,000 unit) capsule (D3-2000) 100 mcg PO DAILY SUPPLEMENT 03/04/23 [History Last Taken 03/03/23] empagliflozin 25 mg tablet (Jardiance) 25 mg PO DAILY DIABETES 03/04/23 [History Last Taken 03/03/23] guaifenesin 100 mg/5 mL oral liquid 200 mg PO TID PRN CONGESTION 03/04/23 [History Last Taken 03/03/23] Allergy/AdvReac Type Severity Reaction Status Date / Time ezetimibe Allergy Unknown Verified 02/16/23 03:08 Fish Containing Products Allergy Unknown Verified 02/16/23 03:08 glyburide Allergy Unknown Verified 02/16/23 03:08 isosorbide Allergy PT UNSURE Verified 02/04/23 12:39 OF REACTION lisinopril Allergy Unknown Verified 02/16/23 03:08 metformin Allergy Nausea Verified 02/16/23 03:08 metoprolol Allergy Unknown Verified 02/16/23 03:08 simvastatin Allergy Unknown Verified 02/16/23 03:08 tramadol Allergy Other Verified 02/16/23 03:08 iron AdvReac Mild Vomiting Verified 02/16/23 03:08 gabapentin AdvReac Other Verified 02/16/23 03:08 Family History Father No problems noted. Surgical History H/O coronary artery bypass surgery History of cholecystectomy History of coronary artery stent placement History of knee replacement procedure of left knee History of permanent cardiac pacemaker placement (01/14/21) Social History household members: spouse Smoking Status: Former smoker details: Unknown substance use type: does not use Vital Signs Vital Signs Vital Signs: 03/04/23 07:32 03/04/23 07:54 03/04/23 08:10 Temperature 96.2 F L Temperature Source Temporal Pulse Rate 61 Respiratory Rate 16 Respiratory Effort Normal Non-Labored Respiratory Depth Respiratory Pattern Blood Pressure 127/65 H Blood Pressure Mean 85 Blood Pressure Source Blood Pressure Position Blood Pressure Location Pulse Ox 97 100 Oxygen Delivery Method Room Air Nasal Cannula Oxygen Flow Rate (L/min) 4 03/04/23 08:10 03/04/23 08:13 03/04/23 08:30 Temperature Temperature Source Pulse Rate 90 62 85 Respiratory Rate 18 16 16 Respiratory Effort Respiratory Depth Respiratory Pattern Blood Pressure 119/76 119/76 122/72 H Blood Pressure Mean 90 90 88 Blood Pressure Source Blood Pressure Position Blood Pressure Location Pulse Ox 100 98 100 Oxygen Delivery Method Nasal Cannula Nasal Cannula Room Air Oxygen Flow Rate (L/min) 4 4 03/04/23 09:00 03/04/23 09:34 03/04/23 10:48 Temperature 97.8 F Temperature Source Temporal Pulse Rate 62 62 59 L Respiratory Rate 16 18 18 Respiratory Effort Respiratory Depth Respiratory Pattern Blood Pressure 123/67 H 131/71 H 126/67 H Blood Pressure Mean 85 91 86 Blood Pressure Source Monitor Blood Pressure Position Semi-Fowlers Blood Pressure Location Right Arm Pulse Ox 100 100 100 Oxygen Delivery Method Room Air Room Air Nasal Cannula Oxygen Flow Rate (L/min) 4 03/04/23 10:57 03/04/23 11:25 03/04/23 11:31 Temperature Temperature Source Pulse Rate 62 Respiratory Rate 18 Respiratory Effort Normal Non-Labored Respiratory Depth Normal Respiratory Pattern Normal Blood Pressure 119/71 Blood Pressure Mean 87 Blood Pressure Source Blood Pressure Position Blood Pressure Location Pulse Ox 98 94 Oxygen Delivery Method Nasal Cannula Nasal Cannula Oxygen Flow Rate (L/min) 4 4 Weight Weight: 108.6 kg Body Mass Index (BMI) 34.3 NIHSS NIHSS Nursing Documentation NIHSS Nursing Documentation: NIHSS: Ischemic Stroke/TIA Start: 03/04/23 10:44 Text: For PCU Patients: NIH and Neuro Check every 4 Status: Active hours and PRN Freq: [id number] Protocol: Activity Type Activity Date Activity User E-sign Co-sign Detail Recorded Client Recorded Date Recorded By Document 03/04/23 11:00 KS Desktop 03/04/23 11:14 KS 03/04/23 11:00 NIH Stroke Scale [NIHSS] A score of 0 is normal or asymptomatic . Total possible score is 42. Inpatient: RN or Physician to activate a stroke alert for onset of new stroke symptoms or with NIHSS increase >/= 3 points. Following change in neurological status, NIHSS will be performed per physician order or more frequently PRN. -1a. Level of Consciousness Alert; keenly responsive -1b. LOC Questions Answers BOTH questions correctly. -1c. LOC Commands Performs both tasks correctly . -2. Best Gaze Normal -3. Visual No visual loss -4. Facial Palsy Normal symmetrical movements -5a. Left Arm Drift; arm drifts downward but doesn?t hit the bed -5b. Right Arm No drift; arm holds 90 (or 45 ) degrees for full 10 seconds -6a. Left Leg Drift; leg falls by the end of 5- seconds, but does not hit bed -6b. Right Leg No drift; leg holds 30-degree position for full 5 seconds -7. Limb Ataxia Absent -8. Sensory Mild-to- moderate sensory loss; -9. Best Language No aphasia; normal -10. Dysarthria Normal -11. Extinction and Inattention Visual, tactile , auditory, spatial, or personal inattention -Total 4 Query Text:A score of 0 is normal or asymptomatic. Total possible score is 42 . ED: Notify Physician for NIHSS increase by > / = 3 points. Inpatient: RN or Physician to activate a stroke alert for NIHSS increase of > / = 3 points. Coma Scale [Assess] -Eye Opening Spontaneous -Motor Obeys Commands -Verbal Oriented [Total] -Coma Scale Total 15 NIHSS 1a. Level of Consciousness: Alert; keenly responsive 1b. LOC Questions: Answers BOTH questions correctly. 1c. LOC Commands: Performs both tasks correctly. 2. Best Gaze: Normal 3. Visual: No visual loss 4. Facial Palsy: Normal symmetrical movements 5a. Left Arm: Drift; arm drifts downward but doesn?t hit the bed 5b. Right Arm: No drift; arm holds 90 (or 45) degrees for full 10 seconds 6a. Left Leg: Drift; leg falls by the end of 5-seconds, but does not hit bed 6b. Right Leg: No drift; leg holds 30-degree position for full 5 seconds 7. Limb Ataxia: Absent 8. Sensory: [id number]-gd-[id number] sensory loss; 9. Best Language: No aphasia; normal 10. Dysarthria: Uykr-yb-cfocilpm dysarthria; 11. Extinction and Inattention: No abnormality Total: 4 Stroke Questions a.Reviewed Inclusion/Exclusion criteria: Yes Was Patient considered for Endovascular Intervention?: No IV Thrombolytic Administered: No No contraindications from thrombolytic administration: No Risks, Benefits, Alternatives Discussed: No Not given: Patient refusal: No Physical Exam Const alert and oriented x3 General Appearance: cooperative Orientation / Consciousness: awake, oriented to person, oriented to place and oriented to time HEENT normocephalic, head/scalp atraumatic and hearing grossly normal bilaterally Eyes EOMs intact bilaterally Chest inspection of chest normal Resp normal respiratory effort Cardio no JVD GI normal to inspection, nondistended, normoactive bowel sounds Extremity normal to inspection Neuro oriented x3 and CN's II-XII intact bilaterally Neuro Narrative: Language: No aphasia, mild dysarthria Motor: Right 5/5 antigravity, left hemiparesis 4/5 Sensation: Decreased on the left side No ataxia Lab / Micro Data 03/04/23 08:19 03/04/23 08:19 Labs: Laboratory Results - last 24 hr 03/04/23 07:52: POC Glucose 157 H 03/04/23 08:19: WBC 7.4, RBC 3.95 L, Hgb 12.6 L, Hct 37.4 L, MCV 94.7 H, MCH 31.9, MCHC 33.7, RDW Std Deviation 48.9 H, RDW Coeff of Cinda 14.4, Plt Count 151, MPV 11.0, Immature Gran % (Auto) 0.400, Neut % (Auto) 71.5 H, Lymph % (Auto) 16.8 L, [place] % (Auto) 8.9, Eos % (Auto) 1.9, Baso % (Auto) 0.5, Absolute Neuts (auto) 5.3, Absolute Lymphs (auto) 1.24, Nucleated RBC % 0, PT 15.1 H, INR 1.2, APTT 39.0 H, Sodium 136, Potassium 4.1, Chloride 99, Carbon Dioxide 31.0, Anion Gap 6, BUN 26 H, Creatinine 1.54 H, Estim Creat Clear Calc 55.15, Est GFR (MDRD) Af Amer 57 L, Est GFR (MDRD) Non-Af 47 L, BUN/Creatinine Ratio 16.9, Glucose 141 H, Calcium 8.7, Troponin I High Sens 25 03/04/23 10:58: POC Glucose 167 H 03/04/23 11:20: Troponin I High Sens 29 Imagaing Radiology Impression Brain CT 03/04/23 07:49 IMPRESSION: No acute intracranial process identified. Chronic involutional and white matter changes. Electronically Signed: Michelle Tomlinson MD at 8:13 EST Reading Location ID and State: [facility] / [place] Tel , Service support , ADDENDUM: 03/04/23 08 IMPRESSION: No acute intracranial process identified. Chronic involutional and white matter changes. N.B. : The above Results were Read Back by Michelle Tomlinson MD to Jaydon Armstrong DO, and understanding confirmed on 03/04/2023 08:14:37 (ET). Electronically Signed: Michelle Tomlinson MD at 8:13 EST , Head/Neck CTA 03/04/23 07:50 IMPRESSION: No evidence for significant stenosis or occlusion in the carotid or vertebral arteries of the neck. Mildly enlarged left supraclavicular lymph node, nonspecific. No evidence for large vessel occlusion or other focal vascular abnormality in the [place] region. Electronically Signed: Michelle Tomlinson MD at 8:32 EST , ADDENDUM: 03/04/23 0842 IMPRESSION: No evidence for significant stenosis or occlusion in the carotid or vertebral arteries of the neck. Mildly enlarged left supraclavicular lymph node, nonspecific. No evidence for large vessel occlusion or other focal vascular abnormality in the [place] region. N.B. : The above Results were Read Back by Michelle Tomlinson MD to Jaydon Armstrong DO, and understanding confirmed on 03/04/2023 08:35:07 (ET). Electronically Signed: Michelle Tomlinson MD at 8:32 EST , Chest CTA 03/04/23 07:51 IMPRESSION: No evidence of pulmonary embolism. Chronic mild left pleural effusion with left lower lobe scarring. Mild mediastinal lymphadenopathy, similar to prior. Mildly enlarged left supraclavicular lymph node. Electronically Signed: Michelle Tomlinson MD at 8:53 EST , Active Medications Active Medications Active Medications: Current Medications Generic Name Dose Route Start Last Admin Trade Name Freq PRN Reason Stop Dose Admin Acetaminophen 650 mg 03/04/23 10:44 03/04/23 12:27 Acetaminophen 325 Mg Tablet PO 650 mg Q6H PRN PRN Administration Pain 1-10 Or Fever >100.7 Albuterol Sulfate 2.5 mg 03/04/23 10:44 Albuterol 2.5 Mg/3 Ml Vial.Neb. INHALATION Q2H PRN PRN SOB/Wheezing Albuterol/Ipratropium 3 ml 03/04/23 12:05 Ipratropium/Albuterol Sulfate 3 Ml Ampul.Neb INHALATION Q6HWA.RT [facility] Aspirin 81 mg 03/05/23 08:00 Aspirin 81 Mg Tab.Chew PO BREAKFAST [facility] Atorvastatin Calcium 80 mg 03/04/23 22:00 Atorvastatin Calcium 80 Mg Tablet PO QHS [facility] Budesonide 0.5 mg 03/04/23 12:05 Budesonide Respules 0.5 Mg/2 Ml Ampul.Neb. INHALATION Q12H.RT [facility] Clopidogrel Bisulfate 75 mg 03/05/23 10:00 Clopidogrel Bisulfate 75 Mg Tablet PO DAILY [facility] Dextrose 0 gm 03/04/23 10:44 Dextrose 50%-Water 25 Gm/50 Ml Disp.Syrin IV X1 PRN HYPOGLYCEMIA Protocol Escitalopram Oxalate 10 mg 03/05/23 10:00 Escitalopram Oxalate 10 Mg Tablet PO DAILY [facility] Finasteride 5 mg 03/05/23 10:00 Finasteride 5 Mg Tablet PO DAILY [facility] Furosemide 40 mg 03/05/23 10:00 Furosemide 40 Mg Tablet PO DAILY [facility] Protocol Glucagon 1 mg 03/04/23 10:44 Glucagon 1 Mg/Ml Syringe IM X1 PRN HYPOGLYCEMIA Guaifenesin 10 ml 03/04/23 10:44 Guaifenesin 10 Ml Udc (200mg/10ml) PO TID PRN CONGESTION Hydralazine HCl 5 mg 03/04/23 10:44 Hydralazine 20 Mg/Ml Vial IV Q30M PRN to maintain BP goals Sodium Chloride 1,000 mls @ 100 mls/hr 03/04/23 07:49 03/04/23 08:23 IV 03/04/23 17:48 100 mls/hr .Q10H ONE Administration Sodium Chloride 500 mls @ 15 mls/hr 03/04/23 10:46 IV PRN PRN Blood Transfusion Sodium Chloride 250 mls @ 15 mls/hr 03/04/23 10:46 IV .[id number] PRN Additional IVPB Infusion Sodium Chloride 250 mls @ 15 mls/hr 03/04/23 10:46 IV .[id number] PRN Saline Flush Insulin Human Lispro 0 unit 03/04/23 11:00 03/04/23 12:27 Insulin Lispro 100 Unit/Ml Insuln.Pen SC 1 unit ACHS [facility] Administration Protocol Insulin Human Regular 100 units 03/04/23 16:00 Insulin U-500 Units/Ml Pen SC BIDAC ALEXUS Labetalol HCl 20 mg 03/04/23 07:49 Labetalol (Prefilled) 20 Mg/4 Ml IV X1 PRN BLOOD PRESSURE Labetalol HCl 10 - 20 mg 03/04/23 10:44 Labetalol (Prefilled) 20 Mg/4 Ml IV Q10M PRN PRN to Maintain BP Goals Melatonin 3 mg 03/04/23 10:44 Melatonin 3 Mg Tablet PO QHS PRN PRN INSOMNIA Ondansetron HCl 4 mg 03/04/23 10:44 Ondansetron 4 Mg/2 Ml Vial IV Q8H PRN PRN NAUSEA/VOMITING Oxycodone HCl 5 mg 03/04/23 10:44 03/04/23 12:26 Oxycodone 5 Mg Tablet PO 5 mg Q4H PRN PRN Administration Pain Score 4-10 Pantoprazole Sodium 40 mg 03/04/23 22:00 Pantoprazole Sodium 40 Mg Tablet PO BID [facility] Ranolazine 500 mg 03/04/23 22:00 Ranolazine 500 Mg Tablet PO Q12 [facility] Senna/Docusate Sodium 2 tablet 03/04/23 10:44 Senna/Docusate Sodium 1 Tablet PO BID PRN PRN Constipation Sodium Chloride 10 - 40 ml 03/04/23 10:46 0.9% Saline Lock 10 Ml Syringe IV UD PRN SALINE FLUSH Spironolactone 25 mg 03/05/23 10:00 Spironolactone 25 Mg Tablet PO DAILY [facility] Protocol Tamsulosin HCl 0.4 mg 03/04/23 22:00 Tamsulosin Hcl 0.4 Mg Capsule PO QHS [facility]
[2023-03-04 14:54] LABS: Troponin-I HS 30 pg/mL (3.0-78.0)
[2023-03-04] MEDS: Insulin U-500 UNITS/ML PEN 100 UNITS SC (16:23)
[2023-03-04 16:56] LABS: Bedside Glucose 248 mg/dL (74-106)
[2023-03-04] MEDS: Morphine 2 MG/ML Syringe IV (16:59)
[2023-03-04] MEDS: 0.9% Saline Lock 10 ML Syringe IV (16:59)
[2023-03-04] MEDS: Budesonide Respules 0.5 MG/2 ML AMPUL.NEB. INHALATION (20:22)
[2023-03-04] MEDS: Ipratropium/Albuterol Sulfate 3 ML AMPUL.NEB INHALATION (20:22)
[2023-03-04] MEDS: Pantoprazole Sodium 40 MG Tablet PO (21:33)
[2023-03-04] MEDS: Tamsulosin HCl 0.4 MG Capsule 0.400000000000000022 MG PO (21:33)
[2023-03-04] MEDS: Atorvastatin Calcium 80 MG Tablet PO (21:33)
[2023-03-04] MEDS: Ranolazine 500 MG Tablet PO (21:33)
[2023-03-05] VITALS (16 sets, daily range): BP systolic 133–154; BP diastolic 68–83; PULSE 57–98; RESP 14–20; TEMP 36.3–36.4; O2SAT 94–100; BMI 34.3
--- NOTE | 2023-03-05 00:19 | CPS ---
Pt is on sleep machine bipap 01/12 ,3L bleed in
[2023-03-05 00:54] LABS: Bedside Glucose 223 mg/dL (74-106)
[2023-03-05] MEDS: Ipratropium/Albuterol Sulfate 3 ML AMPUL.NEB INHALATION ×2 (07:20→12:56)
[2023-03-05] MEDS: Budesonide Respules 0.5 MG/2 ML AMPUL.NEB. INHALATION (07:20)
[2023-03-05 07:49] LABS: Absolute Lymphocyte Count 1.13 X10^3/uL (0.83-4.51); Absolute Neutrophil Count 4.2 X10^3/uL (2.0-7.7); Basophil# 0.03 X10^3/uL; Basophil% 0.5 % (0-1); Eosinophil# 0.19 X10^3/uL; Eosinophils% 3.1 % (0-5); Hematocrit 39.9 % (40-54); Hemoglobin 13.1 g/dL (13.0-16.5); Lymphocyte # 1.13 X10^3/ul (0.83-4.51); Lymphocyte % 18.3 % (19-41); Mean Corp Hgb Conc 32.8 g/dL (32-36); Mean Corpuscular Hgb 31.6 pg (27.0-32.0); Mean Corpuscular Volume 96.1 fL (80-94); Mean Platelet Vol. 11.1 fl (6.2-12.0); Monocyte# 0.56 X10^3/uL; Monocyte% 9.1 % (0-10); NRBC Flagged by Analyzer 0 % (0-5); Neutrophil # 4.23 X10^3/uL (2.7-7.7); Neutrophil % 68.7 % (47-70); Platelet Count 132 K/mm3 (150-450); RBC Distribution Width CV 14.4 % (11.6-14.6); RBC Distribution Width SD 50.5 fl (35.1-43.9); Red Blood Count 4.15 M/mm3 (4.6-6.2); White Blood Count 6.2 K/mm3 (4.4-11.0)
[2023-03-05 08:19] LABS: Anion Gap 4 (5-15); BUN 24 mg/dL (7-18); BUN/Creat Ratio 18.5 RATIO (10-20); Calcium,Total 9.3 mg/dL (8.5-10.1); Chloride 102 mmol/L (98-107); Cholesterol 108 mg/dL (200); EST Glomerular Filtration Rate 58 mL/min (>60); Est Glom Filt Rate - Afr Amer 70 mL/min (>60); Estimated Creatinine Clearance 63.38 ml/min; Glucose 226 mg/dL (74-106); High Density Lipoprotein 36 mg/dL; Potassium 4.5 mmol/L (3.5-5.1); Sodium Level 136 mmol/L (136-145); Triglycerides 309 mg/dL; Very Low Density Lipoprotein 62 mg/dL (5-40)
[2023-03-05] MEDS: Insulin Lispro 100 UNIT/ML INSULN.PEN SC ×3 (08:42→16:31)
[2023-03-05] MEDS: Aspirin 81 MG TAB.CHEW PO (08:45)
[2023-03-05] MEDS: Pantoprazole Sodium 40 MG Tablet PO (08:45)
[2023-03-05] MEDS: Clopidogrel Bisulfate 75 MG Tablet PO (08:45)
[2023-03-05] MEDS: Escitalopram Oxalate 10 MG Tablet PO (08:45)
[2023-03-05] MEDS: Spironolactone 25 MG Tablet PO (08:46)
[2023-03-05] MEDS: Ranolazine 500 MG Tablet PO (08:46)
[2023-03-05] MEDS: Insulin U-500 UNITS/ML PEN 100 UNITS SC ×2 (08:46→16:31)
[2023-03-05] MEDS: Finasteride 5 MG Tablet PO (08:46)
[2023-03-05] MEDS: Furosemide 40 MG Tablet PO (08:52)
--- NOTE | 2023-03-05 09:56 | NURSING ---
Notified Dr of change in NIH score, patient is headed to MRI now.
[2023-03-05] MEDS: oxyCODONE 5 MG Tablet PO (11:06)
--- NOTE | 2023-03-05 11:45 | CASEMGMT ---
Met with?patietnt to complete FERGUSON form. FERGUSON form explained to patient who voiced understanding and signed form. Original form placed in pt?s chart and copy provided to patient. Rylie Godinez, Discharge Planning Asst
[2023-03-05 11:48] LABS: Bedside Glucose 290 mg/dL (74-106)
--- NOTE | 2023-03-05 12:45 | STROKE.PNOTE ---
Objective Data Objective Data Vital Signs: Vital Signs Temp Pulse Resp BP Pulse Ox O2 Del Method O2 Flow Rate 97.4 F L 89 18 154/83 H 94 Nasal Cannula 5 03/05/23 09:30 03/05/23 10:46 03/05/23 10:46 03/05/23 10:46 03/05/23 10:46 03/05/23 10:46 03/05/23 10:46 Oxygen Flow Rate (L/min) 5 Oxygen Delivery Method Nasal Cannula Weight: 108.6 kg Body Mass Index (BMI) 34.3 Intake & Output: Intake and Output for Last 24 Hours 03/03/23 03/04/23 03/05/23 23:59 23:59 23:59 Intake Total 1800 / 1800 120 / 120 Output Total 350 / 1500 1550 / 1550 Balance 1450 / 300 -1430 / -1430 Lab / Micro Data 03/05/23 07:15 03/05/23 07:15 Labs: Laboratory Results - last 24 hr 03/04/23 14:20: Troponin I High Sens 30 03/04/23 16:17: POC Glucose 248 H 03/04/23 21:29: POC Glucose 223 H 03/05/23 07:15: WBC 6.2, RBC 4.15 L, Hgb 13.1, Hct 39.9 L, MCV 96.1 H, MCH 31.6, MCHC 32.8, RDW Std Deviation 50.5 H, RDW Coeff of Cinda 14.4, Plt Count 132 L, MPV 11.1, Immature Gran % (Auto) 0.300, Neut % (Auto) 68.7, Lymph % (Auto) 18.3 L, [place] % (Auto) 9.1, Eos % (Auto) 3.1, Baso % (Auto) 0.5, Absolute Neuts (auto) 4.2, Absolute Lymphs (auto) 1.13, Nucleated RBC % 0, Sodium 136, Potassium 4.5, Chloride 102, Carbon Dioxide 30.0, Anion Gap 4 L, BUN 24 H, Creatinine 1.30, Estim Creat Clear Calc 63.38, Est GFR (MDRD) Af Amer 70, Est GFR (MDRD) Non-Af 58 L, BUN/Creatinine Ratio 18.5, Glucose 226 H, Calcium 9.3, Triglycerides 309 H, Cholesterol 108, LDL Cholesterol 10, VLDL Cholesterol 62 H, HDL Cholesterol 36 L 03/05/23 10:57: POC Glucose 290 H Radiography Diagnostic Testing: Radiology Impression Brain MRI 03/04/23 10:11 IMPRESSION: Involutional and chronic ischemic changes of the brain, as described above. Electronically Signed: Robb Temple MD at 12:24 EST Reading Location ID and State: [address] [place] [address] , Service support , Echocardiogram 03/04/23 10:11 Interpretation Summary The estimated ejection fraction is 45-50 %. Hypokinesia Limited echo study. No significant change from prior echocardiogram. Ordering Physician: Belle Holman Performed By: Margaret Brown RDCS Physical Exam Const Orientation / Consciousness: awake, oriented to person, oriented to place and oriented to time Eyes EOMs intact bilaterally Resp normal respiratory effort Neuro Neuro Narrative: Awake, alert, oriented x3 Mild dysarthria, able to name objects, no aphasia Cranial nerves intact Left hemiparesis decreased sensation on left side Subject: Neurology Subjective GIOVANNY LEONARDO is a 72 year old M, who we are seeing in consultation today for advice on the management of left sided symptoms and related patient care. reports persistent pain. Improving dysarthria. persistent pain and weakness. Assessment and Plan: Stroke Assessment/Plan GIOVANNY LEONARDO is a 72 M with a history of diabetes mellitus, COPD with chronic hypoxic respiratory failure on 4 L of home O2, CAD status post CABG, pacemaker, reported previous CVA who presented to [facility] with worsening left sided weakness, numbness, dysarthria upon waking up. Stroke alert was called. Not a thrombolysis candidate as he was out of time window. Worsening left sided symptoms likely stroke recrudescence Neurological examination shows Dysarthria, left hemiparesis, left sided sensory loss. Neuroimaging shows CT Negative, CTA no LVO. MRI Brain Negative for acute ischemic strokes. Plan Continue antiplatelets ASA,Plavix (Home meds) Continue statin to keep LDL <70 w/up and Management of pain per primary team PT, OT eval DVT prophylaxis Thanks or the consultation I spent 35 min in evaluation, chart review and coordination of care
--- NOTE | 2023-03-05 16:30 | CASEMGMT ---
KRISTI GERONIMO NOTE: Therapy notes reviewed. Pt ambulated 280 ', SBA today. Per ST, additional OP therapy rec. Pt being discharged today per Dr Holman. KRISTI GERONIMO to room. Pt sitting up in chair. Introduced self and role. Pt declines wanting any OP PT/OT, but is agreeable to OP ST. Script obtained from Dr Holman and provided to pt. He was made aware he can take to any location of choice. He voices understanding and denies having other discharge needs. KRISTI GERONIMO placed call to pt's and she was made aware of OP ST script received. She was made aware can take to location of choice and provided w/locations in [place] area that do OP ST. She voices understanding. She states pt's portable O2 tank is already in the car for her to bring in this evening to take pt home. She denies other needs. Wendy ATKINSON RN, CM
[2023-03-05 16:57] LABS: Bedside Glucose 185 mg/dL (74-106)
--- NOTE | 2023-03-05 16:58 | PCM.DC.SUM ---
Providers Date of Admission: 03/04/23 Date of Discharge: 03/05/23 Primary Care Physician: [facility] Consultations 03/04/23 10:44 Consult: Tele-Neurology Routine Consulting Provider: [facility] Reason for Consult: Acute Ischemic Stroke/TIA EMERGENT Consult: No MD Notified: Yes Date Notified: 03/04/23 Time Notified: 10:55 Method of Notification: Answering Service Comments:: WAS SEEN IN ED, FOR C/S CONTINUATION Nursing Unit Staff Notify [facility] of Tele-Neurology Consult: Yes Reason For Visit: CVA R/O Diagnosis Discharge Diagnosis (1) Left-sided weakness: Status: Acute Code(s): R53.1 - Weakness (2) COPD (chronic obstructive pulmonary disease): Status: Chronic Code(s): J44.9 - Chronic obstructive pulmonary disease, unspecified Qualifiers: COPD type: emphysema Emphysema type: centrilobular Qualified Code(s): J43.2 - Centrilobular emphysema (3) History of CAD (coronary artery disease): Status: Acute Code(s): Z86.79 - Personal history of other diseases of the circulatory system (4) Congestive heart failure (CHF): Status: Acute Code(s): I50.9 - Heart failure, unspecified (5) Syncope: Status: Acute Code(s): R55 - Syncope and collapse Plan # Left-sided decreased sensation and weakness upper and lower-stroke rule out # Atypical chest pain # Episodes of passing out- no episodes while admitted # History of coronary artery disease status post CABG/pacemaker # Chronic hypoxic respiratory failure on 4 L home O2 #Type 2 diabetes mellitus # History of BPH with obstruction # Chronic heart failure with midrange ejection fraction # Worsening kidney function # Mildly enlarged left supraclavicular lymph node Medications at Discharge Home Medications aspirin 81 mg tablet,delayed release 81 mg PO DAILY HEART HEALTH 06/11/18 atorvastatin 80 mg tablet 80 mg PO QHS CHOLESTEROL 06/11/18 escitalopram oxalate 10 mg tablet 10 mg PO DAILY DEPRESSION 06/11/18 finasteride 5 mg tablet 5 mg PO DAILY PROSTATE 06/11/18 insulin regular hum U-500 conc 500 unit/mL(3 mL) subcut pen (Humulin R U-500 (Conc) Insulin Kwikpen) 130 unit subcut BID DIABETES 06/11/18 nitroglycerin 0.4 mg sublingual tablet 0.4 mg sublingual Q5M PRN CHEST PAIN #30 TABLETS 07/22/18 pantoprazole 40 mg tablet,delayed release 40 mg PO BID GERD 05/18/20 carvedilol 25 mg tablet 25 mg PO BID BLOOD PRESSURE 06/22/20 ranolazine 500 mg tablet,extended release,12 hr 500 mg PO Q12H CHEST PAIN 06/22/20 tamsulosin 0.4 mg capsule 0.4 mg PO QHS PROSTATE 08/10/20 clopidogrel 75 mg tablet (Plavix) 75 mg PO DAILY BLOOD THINNER 01/07/21 albuterol sulfate 2.5 mg/3 mL (0.083 %) solution for nebulization 2.5 mg inhalation Q6H PRN SHORTNESS OF BREATH/WHEEZING 12/12/21 ketoconazole 2 % shampoo 1 applic topical DAILY DRY SCALP 12/12/21 magnesium oxide 420 mg tablet 420 mg PO BID SUPPLEMENT 12/12/21 multivitamin with minerals 1 tab PO DAILY SUPPLEMENT 12/12/21 spironolactone 25 mg tablet (Aldactone) 25 mg PO DAILY BLOOD PRESSURE 09/10/22 guaifenesin 600 mg tablet, extended release 12 hr 1,200 mg (2 x 600 mg) PO Q12H PRN COUGH/CONGESTION #120 tabs 11/17/22 acetaminophen 325 mg tablet (Tylenol) 650 mg PO 4X/DAY PRN PAIN 01/27/23 cyclobenzaprine 10 mg tablet 10 mg PO BID PRN MUSCLE SPASMS 01/27/23 furosemide 40 mg tablet 40 mg PO DAILY EDEMA #0 tabs 01/29/23 diazepam 2 mg tablet (Valium) 2 mg PO TID PRN MUSCLE SPASMS 5 days #15 tabs 02/16/23 budesonide 160 mcg-glycopyr 9 mcg-formot 4.8 mcg/actuation HFA inhaler (Breztri Aerosphere) 2 inh inhalation BID SHORTNESS OF BREATH 03/04/23 carboxymethylcellulose sodium 0.5 % eye drops 1 drp EACH EYE TID PRN EYE DRYNESS 03/04/23 cholecalciferol (vitamin D3) 50 mcg (2,000 unit) capsule (D3-2000) 100 mcg PO DAILY SUPPLEMENT 03/04/23 empagliflozin 25 mg tablet (Jardiance) 25 mg PO DAILY DIABETES 03/04/23 guaifenesin 100 mg/5 mL oral liquid 200 mg PO TID PRN CONGESTION 03/04/23 Hospital Course Summary of Care Provided Minutes Spent on Discharge: 32 Hospital Course: Per HPI: GIOVANNY LEONARDO, is a 72 M with history of diabetes mellitus, COPD with chronic hypoxic respiratory failure on 4 L of home O2, CAD status post CABG, pacemaker, reported previous CVA who presented to [facility] with multiple complaints. Reportedly for about 5 days has had some pain rating from his back to his chest to his jaw that is sometimes pressure sometimes sharp sometimes [id number] and comes and goes, went to bed last night and woke up this morning with left-sided numbness and possibly new left-sided weakness though he endorsed he had some chronic left-sided weakness from previous stroke but was inconsistent with report and history, in ED stroke call was made, no acute stroke on CT and no occlusion on CTA so was recommended patient be admitted for stroke workup. In ED troponin negative and EKG paced and he had CTA as well with chronic mild left pleural effusion with left lower lobe scarring with no PE. Hospitalist contacted for admission and endorses history as above. Says he still has the pain from back across chest up to neck though symptoms pressure but also [id number] , feels his decree sensation and weakness on left side is the same from earlier. Breathing at baseline, patient did also endorse episode of loss of consciousness earlier today but said he frequently will pass out for a few minutes and then wake up and sometimes is lightheaded and sometimes has shortness of breath, symptoms vague and difficulty describing timeline but denies that this is a new problem. No other acute complaints. INTERVAL HISTORY: Troponins within normal limits, echocardiogram unchanged from previous, patient continued to have inconsistent neurological exam and MRI was negative for acute stroke, no further acute inpatient workup from neurology standpoint and patient despite the reported weakness was able to get up and ambulate with physical therapy and felt he was at his baseline. Given workup negative discussed discharge and patient was comfortable with this plan with plan to follow-up with his outpatient physicians. Of note it was reported by he and his that this pain that he has in his chest improved with the Valium he was given previously for anxiety but that he ran out, suspect that there is a psychosomatic component to his complaints however given history cardiac and neurologic etiology did have to be ruled out, patient with no new complaints on day of discharge and was discharged home with in stable condition. Discharge instructions as follows: -follow-up with your previously established physicians on discharge for further coordination of care and workup of your chronic pain -You have also been referred for speech therapy on an outpatient basis -Please call your primary care provider's office upon discharge to schedule a hospital follow up within 1 week. -For any concerning signs or symptoms please call 911 or proceed to the nearest emergency department Physical Exam Narrative General: Alert, oriented, no apparent distress HEENT: Atraumatic, normocephalic Eyes: Anicteric, normal conjunctiva, extraocular movements grossly intact Neck: Supple Respiratory: normal respiratory effort Cardiovascular: Regular rate GI: Soft, nontender, nondistended Extremities: No edema Musculoskeletal: Moving all extremities Neuro: Neuroexam again inconsistent but patient able to get up and ambulate with physical therapy felt he was at his baseline Skin: No rashes appreciated Psych: Cooperative Weight / BMI Weight Weight: 108.6 kg Body Mass Index (BMI) 34.3 ABG / Lab / Microbiology Data 03/05/23 07:15 03/05/23 07:15 Laboratory: Laboratory Results - last 24 hr 03/04/23 21:29: POC Glucose 223 H 03/05/23 07:15: WBC 6.2, RBC 4.15 L, Hgb 13.1, Hct 39.9 L, MCV 96.1 H, MCH 31.6, MCHC 32.8, RDW Std Deviation 50.5 H, RDW Coeff of Cinda 14.4, Plt Count 132 L, MPV 11.1, Immature Gran % (Auto) 0.300, Neut % (Auto) 68.7, Lymph % (Auto) 18.3 L, Dolores % (Auto) 9.1, Eos % (Auto) 3.1, Baso % (Auto) 0.5, Absolute Neuts (auto) 4.2, Absolute Lymphs (auto) 1.13, Nucleated RBC % 0, Sodium 136, Potassium 4.5, Chloride 102, Carbon Dioxide 30.0, Anion Gap 4 L, BUN 24 H, Creatinine 1.30, Estim Creat Clear Calc 63.38, Est GFR (MDRD) Af Amer 70, Est GFR (MDRD) Non-Af 58 L, BUN/Creatinine Ratio 18.5, Glucose 226 H, Calcium 9.3, Triglycerides 309 H, Cholesterol 108, LDL Cholesterol 10, VLDL Cholesterol 62 H, HDL Cholesterol 36 L 03/05/23 10:57: POC Glucose 290 H 03/05/23 16:29: POC Glucose 185 H Radiography Diagnostic Testing: Radiology Impression Brain MRI 03/04/23 10:11 IMPRESSION: Involutional and chronic ischemic changes of the brain, as described above. Electronically Signed: Robb Temple MD at 12:24 EST Reading Location ID and State: [facility] / [place] , Service support , D/C Instructions Discharge Diet: - (-DASH diet, 3000 mg sodium restriction, 2 L fluid restriction) Meaningful Use Info Meaningful Use Diagnoses (Choose all that apply): None applicable Discharge Plan Admission Admit Date/Time: 03/04/23 10:00 Primary Reason for Your Visit: Left sided weakness, chest pain Attending Provider: Belle Holman Primary Care Provider: [facility] Consulting Providers: Regulo Tabor; Rubi Sosa; Jocelynn Castaneda; Gretcehn Marvin; Nisha Dong; Ha Hoffmann; Carol Beasley; Varinder Borrero; Gabriel Downey; Georgia Alberts; Jace Miller; Ilsa Crisostomo; Landy Lindsey; Ronda Baca; Edwin Carrillo; Nini Yu; Patrice Kowalski; Jamia Short; Dale Zendejas Instructions Patient Instructions: ED Anxiety Reaction, ED Fall Prevention Additional Instructions / Restrictions: -follow-up with your previously established physicians on discharge for further coordination of care and workup of your chronic pain -You have also been referred for speech therapy on an outpatient basis -Please call your primary care provider's office upon discharge to schedule a hospital follow up within 1 week. -For any concerning signs or symptoms please call 911 or proceed to the nearest emergency department Discharge Orders/Prescriptions Prescriptions: Continued clopidogrel [Plavix] 75 mg tablet 75 mg PO DAILY atorvastatin 80 MG tablet 80 mg PO QHS aspirin 81 MG tablet 81 mg PO DAILY finasteride 5 MG tablet 5 mg PO DAILY escitalopram oxalate 10 MG tablet 10 mg PO DAILY Humulin R U-500 (Conc) Kwikpen 500 UNIT/ML insulin pen 130 unit subcut BID nitroglycerin 0.4 MG tablet, sublingual 0.4 mg sublingual Q5M PRN (Reason: CHEST PAIN ) Qty: 30 0RF pantoprazole 40 MG tablet 40 mg PO BID carvedilol 25 MG tablet 25 mg PO BID ranolazine 500 mg Tablet Extended Release 12 Hr 500 mg PO Q12H tamsulosin 0.4 MG capsule 0.4 mg PO QHS magnesium oxide 420 mg Tablet 420 mg PO BID ketoconazole 2 % Shampoo 1 applic TOPICAL DAILY albuterol sulfate 2.5 mg /3 mL (0.083 %) Solution For Nebulization 2.5 mg INHALATION Q6H PRN (Reason: SHORTNESS OF BREATH/WHEEZING ) multivitamin with minerals Tablet 1 tab PO DAILY spironolactone [Aldactone] 25 mg tablet 25 mg PO DAILY acetaminophen [Tylenol] 325 MG tablet 650 mg PO 4X/DAY PRN (Reason: PAIN ) cyclobenzaprine 10 mg tablet 10 mg PO BID PRN (Reason: MUSCLE SPASMS) furosemide 40 mg Tablet 40 mg PO DAILY Qty: 0 0RF diazepam [Valium] 2 mg tablet 2 mg PO TID PRN (Reason: MUSCLE SPASMS) 5 Days Qty: 15 0RF Jardiance 25 mg tablet 25 mg PO DAILY carboxymethylcellulose sodium 0.5 % drops 1 drp EACH EYE TID PRN (Reason: EYE DRYNESS ) guaifenesin 100 mg/5 mL liquid 200 mg PO TID PRN (Reason: CONGESTION ) cholecalciferol (vitamin D3) [D3-2000] 50 mcg (2,000 unit) capsule 100 mcg PO DAILY Breztri Aerosphere 160-9-4.8 mcg/actuation HFA aerosol inhaler 2 inh inhalation BID Patient Comments: PT STATES THEY HAVE THE INHALER BUT IT DOES NOT WORK WELL FOR THEM Rx Instructions: RINSE MOUTH AFTER USE guaifenesin 600 mg tablet extended release 12hr 1,200 mg PO Q12H PRN (Reason: COUGH/CONGESTION ) Qty: 120 11RF [facility] - Disposition Disposition (needs filled in before D/C Order can be placed): Home, Self Care Charges/Coding Visit Charges Inpatient E&M: 20901 Disch Hosp >30min
== END 2023-03-05 16:57 | disposition home or self-care (01) ==
LOC: ED 09:02 → PCU 10:14
PROVIDERS: Admitting Provider Internal Medicine; Emergency Provider Emergency Medicine; Visit Provider Internal Medicine
DX: R53.1 Weakness (principal); J43.2 Centrilobular emphysema; I50.9 Heart failure, unspecified; I11.0 Hypertensive heart disease with heart failure; J96.11 Chronic respiratory failure with hypoxia; E11.9 Type 2 diabetes mellitus without complications; Z79.4 Long term (current) use of insulin; R07.9 Chest pain, unspecified; Z79.84 Long term (current) use of oral hypoglycemic drugs; I25.10 Atherosclerotic heart disease of native coronary artery without angina pectoris; Z86.73 Personal history of transient ischemic attack (TIA), and cerebral infarction without residual deficits; E78.5 Hyperlipidemia, unspecified; Z87.891 Personal history of nicotine dependence; Z79.82 Long term (current) use of aspirin; Z79.02 Long term (current) use of antithrombotics/antiplatelets; Z79.899 Other long term (current) drug therapy; R20.2 Paresthesia of skin; R20.0 Anesthesia of skin; Z95.1 Presence of aortocoronary bypass graft; R55 Syncope and collapse; Z99.81 Dependence on supplemental oxygen; Z66 Do not resuscitate; N40.1 Benign prostatic hyperplasia with lower urinary tract symptoms; N13.8 Other obstructive and reflux uropathy; R47.1 Dysarthria and anarthria
CPT/HCPCS: 36415; 70450; 70496; 70498; 70551; 71275; 80048; 80061; 82962; 84484; 85025; 85610; 85730; 92610; 93005; 93308; 94002; 94003; 94640; 94762; 96361; 96374; 96375; 96376; 97116; 97162; 97166; 97530; 99221; 99283; J7030; Q9957; Q9967; A4216; C8924; G0378; J2405

== ENCOUNTER 2023-03-14 11:14 | Emergency (ER) | payer OTHER, SELFPAY ==
[2023-03-14 11:15] VITALS: PULSE 61; RESP 16; TEMP 36; O2SAT 99
[2023-03-14 11:18] VITALS: BP 146/75
--- NOTE | 2023-03-14 11:36 | ED.VIS.CHEST ---
HPI History of Present Illness Chief Complaint: Chest Pain Informant: patient and spouse/S.O. Onset/Context/Timing Onset: Today and Yesterday Activity at onset: gradual Timing: Continuous Quality: Positive for Dull and Pain Current Severity: Mild Maximum Severity: Mild Worsened By: Nothing Relieved By: Nothing Associated Symptoms: Negative for Nausea, Vomiting, Diaphoresis, Dyspnea, Cough, Fever, Lightheadedness, Acid Reflux or Palpitations Narrative Narrative: 72-year-old male history of CAD, CABG, stent on Plavix and aspirin. Also history of diabetes, anxiety and he is DNR if he would have a full rest. states that he had chest pain that began yesterday around 10 AM is been constant since that time. Nothing specifically makes it better or worse. Has had this before in the past. He denies any hemoptysis. He denies any calf pain or swelling. He is also having some mild discomfort in his left groin. Denies any fall or trauma. No fever. Prior Similar Symptoms: Yes Recent Illness/Hospitalization: Yes CVD Risk Factors: Positive for Hypertension, Diabetes and Hypercholesterolemia PE Risk Factors: Negative for Recent Travel/Surgery, Prior DVT or PE, Cancer or OCP + Smoking + >/=35 TAD Risk Factors: Negative for Marfan's Syndrome [facility] Medical History Abnormal EKG Anemia Atherosclerotic heart disease platinum coronary artery w/angina pectoris BiPAP (biphasic positive airway pressure) dependence CAD (coronary artery disease) Chest pain Chest pain Chronic hyperglycemia Chronic respiratory failure Congestive heart failure (CHF) Conversion reaction COPD (chronic obstructive pulmonary disease) Diabetes DM type 2 (diabetes mellitus, type 2) DNR (do not resuscitate) DNR (do not resuscitate) discussion Dysarthria Essential (primary) hypertension Former smoker Heart failure Hemiparesis, left History of fractured rib History of TIAs Hyperlipidemia Left-sided weakness Myocardial infarct Obesity On home oxygen therapy EKATERINA (obstructive sleep apnea) EKATERINA (obstructive sleep apnea) Pacemaker Pacemaker battery depletion Pulmonary embolism Sick sinus syndrome Stroke/cerebrovascular accident Syncope Wears hearing aid in both ears Home Medications aspirin 81 mg tablet,delayed release 81 mg PO DAILY HEART HEALTH 06/11/18 [History Last Taken 03/03/23] atorvastatin 80 mg tablet 80 mg PO QHS CHOLESTEROL 06/11/18 [History Last Taken 03/03/23] escitalopram oxalate 10 mg tablet 10 mg PO DAILY DEPRESSION 06/11/18 [History Last Taken 03/03/23] finasteride 5 mg tablet 5 mg PO DAILY PROSTATE 06/11/18 [History Last Taken 03/03/23] insulin regular hum U-500 conc 500 unit/mL(3 mL) subcut pen (Humulin R U-500 (Conc) Insulin Kwikpen) 130 unit subcut BID DIABETES 06/11/18 [History Last Taken 03/03/23] nitroglycerin 0.4 mg sublingual tablet 0.4 mg sublingual Q5M PRN CHEST PAIN #30 TABLETS 07/22/18 [Rx Last Taken 01/17/20] pantoprazole 40 mg tablet,delayed release 40 mg PO BID GERD 05/18/20 [History Last Taken 03/03/23] carvedilol 25 mg tablet 25 mg PO BID BLOOD PRESSURE 06/22/20 [History Last Taken 03/03/23] ranolazine 500 mg tablet,extended release,12 hr 500 mg PO Q12H CHEST PAIN 06/22/20 [History Last Taken 03/03/23] tamsulosin 0.4 mg capsule 0.4 mg PO QHS PROSTATE 08/10/20 [History Last Taken 03/03/23] clopidogrel 75 mg tablet (Plavix) 75 mg PO DAILY BLOOD THINNER 01/07/21 [History Last Taken 03/03/23] albuterol sulfate 2.5 mg/3 mL (0.083 %) solution for nebulization 2.5 mg inhalation Q6H PRN SHORTNESS OF BREATH/WHEEZING 12/12/21 [History Last Taken 03/03/23] ketoconazole 2 % shampoo 1 applic topical DAILY DRY SCALP 12/12/21 [History Last Taken 03/03/23] magnesium oxide 420 mg tablet 420 mg PO BID SUPPLEMENT 12/12/21 [History Last Taken 03/03/23] multivitamin with minerals 1 tab PO DAILY SUPPLEMENT 12/12/21 [History Last Taken 03/03/23] spironolactone 25 mg tablet (Aldactone) 25 mg PO DAILY BLOOD PRESSURE 09/10/22 [History Last Taken 03/03/23] guaifenesin 600 mg tablet, extended release 12 hr 1,200 mg (2 x 600 mg) PO Q12H PRN COUGH/CONGESTION #120 tabs 11/17/22 [Rx Last Taken 03/03/23] acetaminophen 325 mg tablet (Tylenol) 650 mg PO 4X/DAY PRN PAIN 01/27/23 [History Last Taken 03/03/23] cyclobenzaprine 10 mg tablet 10 mg PO BID PRN MUSCLE SPASMS 01/27/23 [History Last Taken 03/03/23] furosemide 40 mg tablet 40 mg PO DAILY EDEMA #0 tabs 01/29/23 [Rx Last Taken 03/03/23] diazepam 2 mg tablet (Valium) 2 mg PO TID PRN MUSCLE SPASMS 5 days #15 tabs 02/16/23 [Rx Last Taken 03/04/23] budesonide 160 mcg-glycopyr 9 mcg-formot 4.8 mcg/actuation HFA inhaler (Breztri Aerosphere) 2 inh inhalation BID SHORTNESS OF BREATH 03/04/23 [History Last Taken 03/03/23] carboxymethylcellulose sodium 0.5 % eye drops 1 drp EACH EYE TID PRN EYE DRYNESS 03/04/23 [History Last Taken 03/03/23] cholecalciferol (vitamin D3) 50 mcg (2,000 unit) capsule (D3-2000) 100 mcg PO DAILY SUPPLEMENT 03/04/23 [History Last Taken 03/03/23] empagliflozin 25 mg tablet (Jardiance) 25 mg PO DAILY DIABETES 03/04/23 [History Last Taken 03/03/23] guaifenesin 100 mg/5 mL oral liquid 200 mg PO TID PRN CONGESTION 03/04/23 [History Last Taken 03/03/23] Allergy/AdvReac Type Severity Reaction Status Date / Time ezetimibe Allergy Unknown Verified 02/16/23 03:08 Fish Containing Products Allergy Unknown Verified 02/16/23 03:08 glyburide Allergy Unknown Verified 02/16/23 03:08 isosorbide Allergy PT UNSURE Verified 02/04/23 12:39 OF REACTION lisinopril Allergy Unknown Verified 02/16/23 03:08 metformin Allergy Nausea Verified 02/16/23 03:08 metoprolol Allergy Unknown Verified 02/16/23 03:08 simvastatin Allergy Unknown Verified 02/16/23 03:08 tramadol Allergy Other Verified 02/16/23 03:08 iron AdvReac Mild Vomiting Verified 02/16/23 03:08 gabapentin AdvReac Other Verified 02/16/23 03:08 Family History Father No problems noted. Surgical History H/O coronary artery bypass surgery History of cholecystectomy History of coronary artery stent placement History of knee replacement procedure of left knee History of permanent cardiac pacemaker placement (01/14/21) Social History household members: spouse Smoking Status: Former smoker details: Unknown substance use type: does not use ROS ROS ED ROS Narrative Chest pain. Denies nausea, vomiting, diarrhea. No fever. No shortness of breath. Review of Systems ROS Unobtainable: Denies due to encephalopathy Constitutional Constitutional ED: Denies chills or fever(s) Eyes Eyes: Reports none ENT ENT ED: Denies ear pain, rhinorrhea or sore throat Cardiovascular Cardiovascular: Reports chest pain; Denies palpitations or racing heartbeat Respiratory/Chest Respiratory/Chest: Denies cough, dyspnea or dyspnea on exertion Gastrointestinal Gastrointestinal: Denies abdominal pain, constipation, diarrhea, melena or nausea Genitourinary Genitourinary ED: Denies dysuria or hematuria Musculoskeletal Musculoskeletal: Denies arthralgias Integumentary Denies abscess Neurologic Neurologic: Denies headache(s) Psychiatric Psychiatric: Denies anxiety Endocrine Endocrinology: Denies cold intolerance Hematologic/Lymphatic Hematologic/Lymphatic: Denies easy bleeding, easy bruising or lymphadenopathy Allergic/Immunologic Allergic/Immunologic ED: Denies mouth swelling, tongue swelling or urticaria EXAM Physical Exam Narrative Exam Narrative: 72-year-old male no acute distress. Vital signs stable afebrile. Pulse ox 99% on room air no signs hypoxia. H EENT exam unremarkable. Mytrex membranes. Lungs clear to auscultation bilaterally. Heart regular rhythm no murmur. Rate about 60. Chest wall and ribs nontender. No crepitance or subcu air. Abdomen soft nontender. His left groin he has some reproducible pain but there is no hernia. No mass. No discoloration. There is no inguinal lymph node or abnormality. He has normal flexion extension of both hips. They are not red, warm or swollen. Back nontender. Moving all 4 extremities. Calves are nontender without edema or cords. Const Vital Signs: 03/14/23 11:15 03/14/23 11:18 03/14/23 11:42 Temperature 96.8 F L Temperature Source Temporal Pulse Rate 61 Respiratory Rate 16 Blood Pressure 146/75 H Blood Pressure Mean 98 Pulse Ox 99 Oxygen Delivery Method Room Air Nasal Cannula Oxygen Flow Rate (L/min) 2 03/14/23 12:33 Temperature Temperature Source Pulse Rate 60 Respiratory Rate 16 Blood Pressure 128/71 H Blood Pressure Mean 90 Pulse Ox 96 Oxygen Delivery Method Nasal Cannula Oxygen Flow Rate (L/min) Positive well nourished and well developed; Negative for cachectic, contractures or unkempt General Appearance ED: well developed and NAD; Negative for unkempt, cachectic, contractures or pallor Nutritional Appearance: Negative for cachectic HEENT Reports moist mucous membranes; Denies dry mucous membranes normocephalic, atraumatic and tenderness Mouth ED: No dry mucous membranes Mouth: No dry mucous membranes Eyes PERRL and EOMs intact bilaterally General Eye ED: Negative for pale conjunctiva or scleral icterus Neck no lymphadenopathy, supple and no JVD General: Negative for tenderness Chest Wall inspection of chest normal and palpation of chest normal Chest: Negative for tenderness Resp normal respiratory effort and clear to auscultation bilaterally Effort and Inspection: Negative for respiratory distress Auscultation: Negative for rales, rhonchi or wheezes Cardio regular rate, regular rhythm, S1 normal heart sound, S2 normal heart sound and no murmurs Rate: Negative for bradycardia or tachycardic Rhythm: Negative for abnormal rhythm GI normal to inspection, nondistended, normoactive bowel sounds, soft to palpation, non-tender, non-distended and no masses Back/Spine no CVA tenderness and no thoracic nor lumbar tenderness General Back: Negative for CVA tenderness Cervical Spine: Negative for cervical spine tenderness Extremity normal to inspection General Extremety ED: Negative for edema, pulses abnormal or tenderness General Extremity: Negative for edema or pulses abnormal Neuro oriented x3 and CN's II-XII intact bilaterally Sensorium / Orientation: awake, alert, oriented to person and oriented to place; Negative for lethargic or stuporous Motor Exam: strength 5/5 throughout Psych mental status grossly normal Appearance: Negative for unkempt Attitude: No agitated Mood & Affect: Negative for depressed, anxious or tearful Skin no rashes or lesions noted and no wounds General Skin Exam: Negative for jaundice or pallor Rashes: No rashes noted Trauma: Negative for abrasion or laceration Heart Score History: Slightly/Non-Suspicious ECG: Normal Age: >/= 65 years Risk Factors: >/= 3 Risk Factors or History of CAD Troponin: </= Normal Limit Score: 4 MDM MDM MDM Narrative Medical decision making narrative: 72-year-old male well-known to this emergency department with atypical nonreproducible noncardiac sounding chest pain. Undergo cardiac workup. He does get chronic pain medication open will be given a dose of morphine for pain and Zofran. Repeat exam patient doing well at 12:56 PM. Was given a second dose of morphine and be discharged home. We discussed his test results. Patient's had constant pain since yesterday I do not think he needs a 2-hour troponin. History & Record Review Discussion w/independent historian: Patient Additional record(s) reviewed:: Prior inpatient record, Prior outpatient record, Prior ED visit and Prior labs Lab Data Attestation: I reviewed the patient's lab results. Lab results narrative: CBC shows a white count of 5. H&H of 13 and 40. Platelets 159. Electrolytes show sodium 134. Gap of 3. Normal BUN 19 creatinine 1.2. Glucose 248. Troponin is normal at 24. Chest x-ray chronic changes no acute process. EKG paced. Labs: Laboratory Results - last 24 hr 03/14/23 11:30 WBC 5.8 RBC 4.17 L Hgb 13.4 Hct 40.5 MCV 97.1 H MCH 32.1 H MCHC 33.1 RDW Std Deviation 50.5 H RDW Coeff of Cinda 14.5 Plt Count 159 MPV 10.8 Immature Gran % (Auto) 0.300 Neut % (Auto) 77.2 H Lymph % (Auto) 13.6 L [place] % (Auto) 5.8 Eos % (Auto) 2.6 Baso % (Auto) 0.5 Absolute Neuts (auto) 4.5 Absolute Lymphs (auto) 0.79 L Nucleated RBC % 0 Sodium 134 L Potassium 4.0 Chloride 101 Carbon Dioxide 30.0 Anion Gap 3 L BUN 19 H Creatinine 1.26 Est GFR (MDRD) Af Amer 72 Est GFR (MDRD) Non-Af 60 BUN/Creatinine Ratio 15.1 Glucose 248 H Calcium 9.1 Troponin I High Sens 24 Radiography Chest X-Ray - ED: 1 View, Read by ED Physician, Heart, Lungs, Mediastinum, Bony Structures, No Acute Disease and Chronic Changes Diagnostic Testing: Clinical Impression(s) from Imaging Studies Chest X-Ray 03/14/23 11:50 IMPRESSION: No acute cardiopulmonary process. Electronically Signed: Stephy Alberto MD at 12:28 EST , Chest x-ray, portable, single view he is got multiple old rib fractures on the left with plates and screws. Adsol chronic. No acute process in the chest x-ray. Interpreted by myself and also read by the radiologist and agrees. Rhythm Strip Rhythm Strip: paced Rate: 65 Ectopy: None EKG Initial EKG: Attestation: I personally reviewed and interpreted this EKG as follows: Interpretation: No Acute Injury Pattern and Paced Comments: Paced rhythm rate is 65. Discharge Plan Triage Chief Complaint: Chest Pain ED Provider: Malcolm Chavez Dx/Rx/DC Orders Clinical Impression: History of cardiac pacemaker, History of rib fracture, History of coronary artery disease, Chest pain Instructions: ED Chest Pain, Uncertain Cause Prescriptions: No Action clopidogrel [Plavix] 75 mg tablet 75 mg PO DAILY atorvastatin 80 MG tablet 80 mg PO QHS aspirin 81 MG tablet 81 mg PO DAILY finasteride 5 MG tablet 5 mg PO DAILY escitalopram oxalate 10 MG tablet 10 mg PO DAILY Humulin R U-500 (Conc) Kwikpen 500 UNIT/ML insulin pen 130 unit subcut BID nitroglycerin 0.4 MG tablet, sublingual 0.4 mg sublingual Q5M PRN (Reason: CHEST PAIN ) Qty: 30 0RF pantoprazole 40 MG tablet 40 mg PO BID carvedilol 25 MG tablet 25 mg PO BID ranolazine 500 mg Tablet Extended Release 12 Hr 500 mg PO Q12H tamsulosin 0.4 MG capsule 0.4 mg PO QHS magnesium oxide 420 mg Tablet 420 mg PO BID ketoconazole 2 % Shampoo 1 applic TOPICAL DAILY albuterol sulfate 2.5 mg /3 mL (0.083 %) Solution For Nebulization 2.5 mg INHALATION Q6H PRN (Reason: SHORTNESS OF BREATH/WHEEZING ) multivitamin with minerals Tablet 1 tab PO DAILY spironolactone [Aldactone] 25 mg tablet 25 mg PO DAILY acetaminophen [Tylenol] 325 MG tablet 650 mg PO 4X/DAY PRN (Reason: PAIN ) cyclobenzaprine 10 mg tablet 10 mg PO BID PRN (Reason: MUSCLE SPASMS) furosemide 40 mg Tablet 40 mg PO DAILY Qty: 0 0RF diazepam [Valium] 2 mg tablet 2 mg PO TID PRN (Reason: MUSCLE SPASMS) 5 Days Qty: 15 0RF Jardiance 25 mg tablet 25 mg PO DAILY carboxymethylcellulose sodium 0.5 % drops 1 drp EACH EYE TID PRN (Reason: EYE DRYNESS ) guaifenesin 100 mg/5 mL liquid 200 mg PO TID PRN (Reason: CONGESTION ) cholecalciferol (vitamin D3) [D3-2000] 50 mcg (2,000 unit) capsule 100 mcg PO DAILY Breztri Aerosphere 160-9-4.8 mcg/actuation HFA aerosol inhaler 2 inh inhalation BID Patient Comments: PT STATES THEY HAVE THE INHALER BUT IT DOES NOT WORK WELL FOR THEM Rx Instructions: RINSE MOUTH AFTER USE guaifenesin 600 mg tablet extended release 12hr 1,200 mg PO Q12H PRN (Reason: COUGH/CONGESTION ) Qty: 120 11RF Primary Care Provider: [facility] Referrals: [facility] [Primary Care Provider] - As Needed Activity Restrictions/Additional Instructions: Follow-up with your [place] doctor as needed. I believe this is secondary to rib cage pain and not your heart. Your labs are unremarkable. Disposition Disposition: Home, Self Care
[2023-03-14] MEDS: morphine 8 MG/ML Syringe 6 MG IV (11:46)
[2023-03-14] MEDS: Ondansetron 4 MG/2 ML Vial IV (11:46)
--- NOTE | 2023-03-14 11:50 | RAD_ITS ---
INDICATION: chest pain EXAMINATION/TECHNIQUE: X-RAY - XR Chest 1 View COMPARISON: February 16, 2023 FINDINGS: LINES/DEVICES: There is a cardiac pacer device in place. LUNGS: No consolidation, edema or effusion. No pneumothorax. MEDIASTINUM AND CARDIOVASCULAR STRUCTURES: There is stable cardiomegaly. There are sternotomy wires in place. BONES AND SOFT TISSUES: There is a right clavicular deformity consistent with a healed fracture. There are stable plate and screw fixation devices within the left ribs. RAD/Chest 1 View (Portable) IMPRESSION: No acute cardiopulmonary process. Electronically Signed: Stephy Alberto MD at 12:28 EST ,
[2023-03-14 12:09] LABS: Absolute Lymphocyte Count 0.79 X10^3/uL (0.83-4.51); Absolute Neutrophil Count 4.5 X10^3/uL (2.0-7.7); Basophil# 0.03 X10^3/uL; Basophil% 0.5 % (0-1); Eosinophil# 0.15 X10^3/uL; Eosinophils% 2.6 % (0-5); Hematocrit 40.5 % (40-54); Hemoglobin 13.4 g/dL (13.0-16.5); Lymphocyte # 0.79 X10^3/ul (0.83-4.51); Lymphocyte % 13.6 % (19-41); Mean Corp Hgb Conc 33.1 g/dL (32-36); Mean Corpuscular Hgb 32.1 pg (27.0-32.0); Mean Corpuscular Volume 97.1 fL (80-94); Mean Platelet Vol. 10.8 fl (6.2-12.0); Monocyte# 0.34 X10^3/uL; Monocyte% 5.8 % (0-10); NRBC Flagged by Analyzer 0 % (0-5); Neutrophil % 77.2 % (47-70); Platelet Count 159 K/mm3 (150-450); RBC Distribution Width CV 14.5 % (11.6-14.6); RBC Distribution Width SD 50.5 fl (35.1-43.9); Red Blood Count 4.17 M/mm3 (4.6-6.2); White Blood Count 5.8 K/mm3 (4.4-11.0)
[2023-03-14 12:21] LABS: Anion Gap 3 (5-15); BUN 19 mg/dL (7-18); BUN/Creat Ratio 15.1 RATIO (10-20); Calcium,Total 9.1 mg/dL (8.5-10.1); Chloride 101 mmol/L (98-107); Creatinine, Serum 1.26 mg/dL (0.70-1.30); EST Glomerular Filtration Rate 60 mL/min (>60); Est Glom Filt Rate - Afr Amer 72 mL/min (>60); Glucose 248 mg/dL (74-106); Sodium Level 134 mmol/L (136-145); Troponin-I HS (w/2H Reflex) 24 pg/mL (3.0-78.0)
[2023-03-14 12:33] VITALS: BP 128/71; PULSE 60; RESP 16; O2SAT 96
[2023-03-14 12:45] VITALS: BMI 35.3
[2023-03-14] MEDS: morphine 8 MG/ML Syringe 4 MG IV (12:56)
[2023-03-14 13:00] VITALS: BP 131/78; PULSE 61; RESP 15; O2SAT 98
[2023-03-14 13:43] VITALS: BP 147/64; PULSE 62; RESP 14; TEMP 36.6; O2SAT 100
[2023-03-14 14:05] LABS: Reflex Troponin-HS? (from REC) Y
== END 2023-03-14 13:54 | disposition home or self-care (01) ==
PROVIDERS: Emergency Provider Emergency Medicine; Visit Provider Emergency Medicine
DX: R07.9 Chest pain, unspecified (principal); J44.9 Chronic obstructive pulmonary disease, unspecified; I11.0 Hypertensive heart disease with heart failure; I50.9 Heart failure, unspecified; E11.9 Type 2 diabetes mellitus without complications; Z79.4 Long term (current) use of insulin; I25.10 Atherosclerotic heart disease of native coronary artery without angina pectoris; E78.00 Pure hypercholesterolemia, unspecified; Z95.5 Presence of coronary angioplasty implant and graft; F41.9 Anxiety disorder, unspecified; Z87.891 Personal history of nicotine dependence; Z79.02 Long term (current) use of antithrombotics/antiplatelets; Z79.82 Long term (current) use of aspirin; Z86.73 Personal history of transient ischemic attack (TIA), and cerebral infarction without residual deficits; I25.2 Old myocardial infarction; Z95.0 Presence of cardiac pacemaker; Z79.899 Other long term (current) drug therapy; Z90.49 Acquired absence of other specified parts of digestive tract; Z96.652 Presence of left artificial knee joint
CPT/HCPCS: 71045; 80048; 84484; 85025; 93005; 96374; 96375; 96376; 99283; J7040; A4216; J2405

== ENCOUNTER 2023-03-20 18:20 | Inpatient (IN) | payer OTHER, SELFPAY ==
[2023-03-20 18:23] VITALS: BP 159/81; PULSE 66; RESP 18; TEMP 36.4; O2SAT 100; BMI 35.9
--- NOTE | 2023-03-20 18:39 | CT_ITS ---
INDICATION: dizziness EXAMINATION: CT BRAIN - CT Head or Brain W/O Contrast Injection TECHNIQUE: Multiple axial images were obtained of the head without intravenous contrast. A radiation dose optimization technique was used for this scan. IV Contrast dosage and agent: None. RADIATION DOSAGE (If Supplied By Facility): CTDIvol = ( 44.99 ) mGy, DLP = ( 829.85 ) mGycm COMPARISON: Prior study dated: 03/04/2023. FINDINGS: BRAIN PARENCHYMA: No intra- or extra-axial hemorrhage. No evidence of acute infarct. No intracranial mass or mass effect. There is preservation of the nagy/white matter interface. Periventricular deep white matter changes are again seen likely due to chronic microvascular disease. Posterior fossa structures are unremarkable. CSF SPACES: Mild atrophy. No hydrocephalus. Basal cisterns are patent. CALVARIUM, SKULL BASE, PARANASAL SINUSES AND MASTOID AIR CELLS: Clear. No discrete lytic or blastic abnormalities. ORBITS: Both globes, extraocular muscles, optic nerves and retrobulbar fat appear unremarkable. CT/Brain/Head without Contrast IMPRESSION: No acute intracranial process. Electronically Signed: Pankaj Mckee MD at 19:31 EST ,
--- NOTE | 2023-03-20 18:42 | EX.ED.DYSGE1 ---
HPI <KELLY Mark - Last Filed: 03/20/23 22:03> History of Present Illness Chief Complaint: Chest Pain Narrative Narrative: Patient is a 72-year-old male with history of chronic chest pain, CAD, diabetes, obesity, COPD on 4 L nasal cannula daily. Patient states he was at a restaurant when he felt dizzy, started having chest pain. Patient was seen here on 14 March, he had similar symptoms, had a cardiac workup. Patient dizziness as well as chest pain is chronic, and since he was close to the hospital he is here for evaluation. Patient denies any fever or chills. Patient denies any nausea or vomiting. Patient states that he feels slightly dizzy, lightheaded however it does not matter if he turns his head left or right. [facility] <KELLY Mark - Last Filed: 03/20/23 22:03> [facility] Medical History Abnormal EKG Anemia Atherosclerotic heart disease osage coronary artery w/angina pectoris BiPAP (biphasic positive airway pressure) dependence CAD (coronary artery disease) Chest pain Chest pain Chronic hyperglycemia Chronic respiratory failure Congestive heart failure (CHF) Conversion reaction COPD (chronic obstructive pulmonary disease) Diabetes DM type 2 (diabetes mellitus, type 2) DNR (do not resuscitate) DNR (do not resuscitate) discussion Dysarthria Essential (primary) hypertension Former smoker Heart failure Hemiparesis, left History of fractured rib History of TIAs Hyperlipidemia Left-sided weakness Myocardial infarct Obesity On home oxygen therapy EKATERINA (obstructive sleep apnea) EKATERINA (obstructive sleep apnea) Pacemaker Pacemaker battery depletion Pulmonary embolism Sick sinus syndrome Stroke/cerebrovascular accident Syncope Wears hearing aid in both ears Home Medications aspirin 81 mg tablet,delayed release 81 mg PO DAILY HEART HEALTH 06/11/18 [History Last Taken 03/03/23] atorvastatin 80 mg tablet 80 mg PO QHS CHOLESTEROL 06/11/18 [History Last Taken 03/03/23] escitalopram oxalate 10 mg tablet 10 mg PO DAILY DEPRESSION 06/11/18 [History Last Taken 03/03/23] finasteride 5 mg tablet 5 mg PO DAILY PROSTATE 06/11/18 [History Last Taken 03/03/23] insulin regular hum U-500 conc 500 unit/mL(3 mL) subcut pen (Humulin R U-500 (Conc) Insulin Kwikpen) 130 unit subcut BID DIABETES 06/11/18 [History Last Taken 03/03/23] nitroglycerin 0.4 mg sublingual tablet 0.4 mg sublingual Q5M PRN CHEST PAIN #30 TABLETS 07/22/18 [Rx Last Taken 01/17/20] pantoprazole 40 mg tablet,delayed release 40 mg PO BID GERD 05/18/20 [History Last Taken 03/03/23] carvedilol 25 mg tablet 25 mg PO BID BLOOD PRESSURE 06/22/20 [History Last Taken 03/03/23] ranolazine 500 mg tablet,extended release,12 hr 500 mg PO Q12H CHEST PAIN 06/22/20 [History Last Taken 03/03/23] tamsulosin 0.4 mg capsule 0.4 mg PO QHS PROSTATE 08/10/20 [History Last Taken 03/03/23] clopidogrel 75 mg tablet (Plavix) 75 mg PO DAILY BLOOD THINNER 01/07/21 [History Last Taken 03/03/23] albuterol sulfate 2.5 mg/3 mL (0.083 %) solution for nebulization 2.5 mg inhalation Q6H PRN SHORTNESS OF BREATH/WHEEZING 12/12/21 [History Last Taken 03/03/23] ketoconazole 2 % shampoo 1 applic topical DAILY DRY SCALP 12/12/21 [History Last Taken 03/03/23] magnesium oxide 420 mg tablet 420 mg PO BID SUPPLEMENT 12/12/21 [History Last Taken 03/03/23] multivitamin with minerals 1 tab PO DAILY SUPPLEMENT 12/12/21 [History Last Taken 03/03/23] spironolactone 25 mg tablet (Aldactone) 25 mg PO DAILY BLOOD PRESSURE 09/10/22 [History Last Taken 03/03/23] guaifenesin 600 mg tablet, extended release 12 hr 1,200 mg (2 x 600 mg) PO Q12H PRN COUGH/CONGESTION #120 tabs 11/17/22 [Rx Last Taken 03/03/23] acetaminophen 325 mg tablet (Tylenol) 650 mg PO 4X/DAY PRN PAIN 01/27/23 [History Last Taken 03/03/23] cyclobenzaprine 10 mg tablet 10 mg PO BID PRN MUSCLE SPASMS 01/27/23 [History Last Taken 03/03/23] furosemide 40 mg tablet 40 mg PO DAILY EDEMA #0 tabs 01/29/23 [Rx Last Taken 03/03/23] diazepam 2 mg tablet (Valium) 2 mg PO TID PRN MUSCLE SPASMS 5 days #15 tabs 02/16/23 [Rx Last Taken 03/04/23] budesonide 160 mcg-glycopyr 9 mcg-formot 4.8 mcg/actuation HFA inhaler (Breztri Aerosphere) 2 inh inhalation BID SHORTNESS OF BREATH 03/04/23 [History Last Taken 03/03/23] carboxymethylcellulose sodium 0.5 % eye drops 1 drp EACH EYE TID PRN EYE DRYNESS 03/04/23 [History Last Taken 03/03/23] cholecalciferol (vitamin D3) 50 mcg (2,000 unit) capsule (D3-2000) 100 mcg PO DAILY SUPPLEMENT 03/04/23 [History Last Taken 03/03/23] empagliflozin 25 mg tablet (Jardiance) 25 mg PO DAILY DIABETES 03/04/23 [History Last Taken 03/03/23] guaifenesin 100 mg/5 mL oral liquid 200 mg PO TID PRN CONGESTION 03/04/23 [History Last Taken 03/03/23] Allergy/AdvReac Type Severity Reaction Status Date / Time ezetimibe Allergy Unknown Verified 02/16/23 03:08 Fish Containing Products Allergy Unknown Verified 02/16/23 03:08 glyburide Allergy Unknown Verified 02/16/23 03:08 isosorbide Allergy PT UNSURE Verified 02/04/23 12:39 OF REACTION lisinopril Allergy Unknown Verified 02/16/23 03:08 metformin Allergy Nausea Verified 02/16/23 03:08 metoprolol Allergy Unknown Verified 02/16/23 03:08 simvastatin Allergy Unknown Verified 02/16/23 03:08 tramadol Allergy Other Verified 02/16/23 03:08 iron AdvReac Mild Vomiting Verified 02/16/23 03:08 gabapentin AdvReac Other Verified 02/16/23 03:08 Family History Father No problems noted. Surgical History H/O coronary artery bypass surgery History of cholecystectomy History of coronary artery stent placement History of knee replacement procedure of left knee History of permanent cardiac pacemaker placement (01/14/21) Social History household members: spouse Smoking Status: Former smoker details: Unknown substance use type: does not use ROS <KELLY Mark - Last Filed: 03/20/23 22:03> ROS ED ROS Narrative Constitutional: Negative for fever, chills, weight loss, weakness Eyes: Negative for vision loss, vision change, double vision ENT: Negative for any sore throat, ear pain, congestion Cardiovascular: Negative for any tightness, palpitations. Positive chest pain Respiratory: Negative for any cough, sputum production, hemoptysis, dyspnea, dyspnea on exertion, orthopnea Gastrointestinal: Negative for any abdominal pain, nausea, vomiting, diarrhea, constipation, blood in stool, blood in vomit : Negative for any urinary frequency, dysuria, retention, blood in urine Muscle skeletal: Negative for any myalgias, arthralgias, neck pain, back pain Neurological: Negative for any headache, syncope, paresthesias. Positive for dizziness Skin: Negative for any rashes, lumps, itching, abrasions, lacerations Psychiatric: Negative for any depression, anxiety, stress, suicidal ideation, homicidal ideation Hematologic: Negative for any easy bruising, excessive bruising, easy bleeding Allergies: Negative for any eczema, hives, rash EXAM <KELLY Mark - Last Filed: 03/20/23 22:03> Physical Exam Narrative Exam Narrative: Vital signs reviewed. Vital signs are stable on his 4 L nasal cannula. HEET: Head normocephalic atraumatic, TMs clear bilaterally. Posterior pharynx is clear, moist mucous membranes. Nares clear bilaterally. Pupils are equal round reactive light. Neck: Supple with no lymphadenopathy or tenderness. No signs of meningismus. Cardiac: Regular rate and rhythm no murmurs gallops or rubs, equal peripheral pulses bilaterally. Respiratory: Diminished lung sounds secondary to body habitus. No chest tenderness. Abdomen: Soft, nontender, nondistended. No abdominal bruit or pulsatile masses. No hepatosplenomegaly Extremities: No peripheral edema, no signs of gross trauma or deformity. Active full range of motion of all extremities. Neuro: Cranial nerves II through XII intact, no focal neurological deficits. Denies stroke scale 0. Negative for any nystagmus Skin: Clean dry and intact with no rash, purpura, petechiae, vesicles or pustules. Backs/flank: No CVA tenderness, no midline spinal tenderness, no deformity. Psych: Normal mood and affect. No SI, HI or acute psychosis. Const Vital Signs: 03/20/23 18:23 03/20/23 18:21 03/20/23 20:19 Temperature 97.6 F L Temperature Source Temporal Pulse Rate 66 64 Respiratory Rate 18 20 H Respiratory Effort Normal Blood Pressure 159/81 H 124/58 H Blood Pressure Mean 107 80 Pulse Ox 100 99 Oxygen Delivery Method Room Air Room Air 03/20/23 20:57 Temperature 97.6 F L Temperature Source Pulse Rate 64 Respiratory Rate 20 H Respiratory Effort Blood Pressure 143/77 H Blood Pressure Mean 99 Pulse Ox 99 Oxygen Delivery Method Positive well nourished, well developed and obese General Appearance ED: well developed Nutritional Appearance: obese <Dr. Edwin Olivas MD - Last Filed: 03/20/23 23:10> Physical Exam Const Vital Signs: 03/20/23 18:23 03/20/23 18:21 03/20/23 20:19 Temperature 97.6 F L Temperature Source Temporal Pulse Rate 66 64 Respiratory Rate 18 20 H Respiratory Effort Normal Blood Pressure 159/81 H 124/58 H Blood Pressure Mean 107 80 Pulse Ox 100 99 Oxygen Delivery Method Room Air Room Air 03/20/23 20:57 Temperature 97.6 F L Temperature Source Pulse Rate 64 Respiratory Rate 20 H Respiratory Effort Blood Pressure 143/77 H Blood Pressure Mean 99 Pulse Ox 99 Oxygen Delivery Method MDM <KELLY Mark - Last Filed: 03/20/23 22:03> [facility] Lab Data Labs: Laboratory Results - last 24 hr 03/20/23 03/20/23 18:43 18:48 WBC 5.9 RBC 3.71 L Hgb 11.9 L Hct 35.8 L MCV 96.5 H MCH 32.1 H MCHC 33.2 RDW Std Deviation 50.4 H RDW Coeff of Cinda 14.4 Plt Count 158 MPV 10.5 Immature Gran % (Auto) 0.300 Neut % (Auto) 75.7 H Lymph % (Auto) 12.5 L [place] % (Auto) 7.8 Eos % (Auto) 3.4 Baso % (Auto) 0.3 Absolute Neuts (auto) 4.5 Absolute Lymphs (auto) 0.74 L Nucleated RBC % 0 Sodium 137 Potassium 3.7 Chloride 104 Carbon Dioxide 28.0 Anion Gap 5 BUN 23 H Creatinine 1.54 H Estim Creat Clear Calc 54.70 Est GFR (MDRD) Af Amer 57 L Est GFR (MDRD) Non-Af 47 L BUN/Creatinine Ratio 14.9 Glucose 215 H Calcium 8.4 L Total Bilirubin 0.70 AST 19 ALT 24 Alkaline Phosphatase 108 Troponin I High Sens 24 B-Natriuretic Peptide 121.6 H Total Protein 7.3 Albumin 3.5 Globulin 3.8 Albumin/Globulin Ratio 0.9 Urine Color Yellow Urine Clarity Clear Urine pH 6.0 Ur Specific Atlas 1.015 Urine Protein 15 H Urine Glucose (UA) 1000 H Urine Ketones Negative Urine Occult Blood Negative Urine Nitrite Negative Urine Bilirubin Negative Urine Urobilinogen Normal Ur Leukocyte Esterase Negative Urine RBC 0 SEEN Urine WBC 0 SEEN Ur Squamous Epith Cells 0 SEEN Urine Bacteria 0 SEEN Urine Mucus 0 SEEN Radiography Diagnostic Testing: Clinical Impression(s) from Imaging Studies Brain CT 03/20/23 18:39 IMPRESSION: No acute intracranial process. Electronically Signed: Pankaj Mckee MD at 19:31 EST , Chest X-Ray 03/20/23 19:22 IMPRESSION: 1. No significant change. 2. No new infiltrate seen. Electronically Signed: Pankaj Mckee MD at 19:33 EST , EKG Atrial sensed ventricular paced rhythm.: Attestation: I personally reviewed and interpreted this EKG as follows: Comments: Atrial paced rhythm, rate of 65 bpm, NV interval 170 ms, QRS duration 202 ms, no acute ST elevation, no acute infarct noted. Treatment and Re-Evaluation :: Patient appears to be in no obvious distress, vital signs are stable. Patient presents to the emergency department with complaints of feeling of dizziness, lightheadedness, as well as chest pain. After speaking with the patient, the patient's this does appear to be a chronic issue. Differential diagnosis includes CVA, acute on chronic pain, ACS, AL, muscle strain. Patient received a cardiac workup including a CT scan of the brain. Patient is alert and orient x 4. All radiologic examinations were read, reviewed by the emergency department attending. From these reads, a plan of care will be put in place. Patient will be given IV morphine, Zofran for the pain. He has had this before with good results. Patient's CBC was unremarkable. Patient's chemistries showed a creatinine of 1.5 which is baseline. Glucose of 215, patient's proBNP was slightly elevated 121.6. Troponin was 24 which is baseline for the patient. This is also negative. Patient CT scan of the brain showed no acute intracranial process. Patient's chest x-ray shows no significant change, no new infiltrate seen. Urinalysis was negative for any infection. Patient did have chest pain that was relieved slightly with morphine. He has had this in the past. Patient will be ambulated with a walker to see if he is steady. Patient was unable to get up and stand steady on his own. Patient kept trying to fall forward. Per the , this is not his norm. Patient states he is feeling abnormally weak. Patient also states that when he stood up he does have some spinning sensation. At this time, secondary to the patient having near syncopal episodes multiple times this evening, his past medical history, I do believe the patient will need to be admitted to the hospital for further workup. I will reach out to the hospitalist. <Dr. Edwin Olivas MD - Last Filed: 03/20/23 23:10> [facility] Narrative Medical decision making narrative: I have personally performed a face to face assessment of the patient and have reviewed the KEVIN Note. I performed a substantive portion of the visit including all aspects of the following. My winslow findings include: History: Patient presents with a lightheadedness episode. This patient has chronic chest pain. He states he gets that many times a week. He states he takes it day by day. He had an episode in the restaurant where he just seemed to go out. But he did not fall or actually pass out. Talking with him and his it sounds like he gets these quite a bit. He states he also gets pains in his backs in his joints and he gets pains all over. It is hard to get from him what was new or different or acute today. All of his symptoms he states he gets pretty regularly at least a couple times a week. Exam: Patient awake alert no acute distress. Lungs do sound clear and his saturations are good. He has median sternotomy from prior CABG. Abdomen is obese but benign. There is no significant peripheral edema. I was called back in the room. Patient was received morphine and then had a period where he seemed to go transiently unresponsive. I went in there. At that point he knew where he was the year and the president [facility]. This was very brief. There is no seizure activity. Even his states that he gets those episodes and that was sort of like what he had in the restaurant. Medical Decision Making: Due to his complex medical history, medical evaluation will be done. Patient feels he is back at baseline already. After workup, we attempted walking the patient. He just felt too weak to even walk. There is still no focal deficit. He states now that he is dizzy. Before he told me he just seemed to get lightheaded. But now he states he gets spinning. But he has had that before. His states he is acted like this before but it has been a long time. She states that he is just not himself today. She states he is in and out. But he is oriented x 3. I cannot get specifics of what she feels are different than another day other than that he seems a lot weaker. He normally does walk away around there home. If he leaves the home to get the mail, he uses a rollator. But now he cannot even walk. I am not getting any focal deficit with him. I will try some meclizine to see if that will help. But I am doubting that this is truly vertigo. I did discuss with him and his if he has been through rehab before. He has been to 3 or 4 different rehabs but the last 1 was almost 2 years ago they stated. It sounds like he is willing to go back to rehab if needed. But we will try the meclizine and see if he can move better. Lab Data Attestation: I reviewed the patient's lab results. Labs: Laboratory Results - last 24 hr 03/20/23 03/20/23 18:43 18:48 WBC 5.9 RBC 3.71 L Hgb 11.9 L Hct 35.8 L MCV 96.5 H MCH 32.1 H MCHC 33.2 RDW Std Deviation 50.4 H RDW Coeff of Cinda 14.4 Plt Count 158 MPV 10.5 Immature Gran % (Auto) 0.300 Neut % (Auto) 75.7 H Lymph % (Auto) 12.5 L [place] % (Auto) 7.8 Eos % (Auto) 3.4 Baso % (Auto) 0.3 Absolute Neuts (auto) 4.5 Absolute Lymphs (auto) 0.74 L Nucleated RBC % 0 Sodium 137 Potassium 3.7 Chloride 104 Carbon Dioxide 28.0 Anion Gap 5 BUN 23 H Creatinine 1.54 H Estim Creat Clear Calc 54.70 Est GFR (MDRD) Af Amer 57 L Est GFR (MDRD) Non-Af 47 L BUN/Creatinine Ratio 14.9 Glucose 215 H Calcium 8.4 L Total Bilirubin 0.70 AST 19 ALT 24 Alkaline Phosphatase 108 Troponin I High Sens 24 B-Natriuretic Peptide 121.6 H Total Protein 7.3 Albumin 3.5 Globulin 3.8 Albumin/Globulin Ratio 0.9 Urine Color Yellow Urine Clarity Clear Urine pH 6.0 Ur Specific Atlas 1.015 Urine Protein 15 H Urine Glucose (UA) 1000 H Urine Ketones Negative Urine Occult Blood Negative Urine Nitrite Negative Urine Bilirubin Negative Urine Urobilinogen Normal Ur Leukocyte Esterase Negative Urine RBC 0 SEEN Urine WBC 0 SEEN Ur Squamous Epith Cells 0 SEEN Urine Bacteria 0 SEEN Urine Mucus 0 SEEN Radiography Diagnostic Testing: Clinical Impression(s) from Imaging Studies Brain CT 03/20/23 18:39 IMPRESSION: No acute intracranial process. Electronically Signed: Pankaj Mckee MD at 19:31 EST Reading Location ID and State: [facility] / [place] Tel , Service support , Chest X-Ray 03/20/23 19:22 IMPRESSION: 1. No significant change. 2. No new infiltrate seen. Electronically Signed: Pankaj Mckee MD at 19:33 EST Reading Location ID and State: [facility] / [place] Tel , Service support , Discharge Plan Dx/Rx/DC Orders Clinical Impression: Near syncope, AMS (altered mental status), Inability to walk Disposition Disposition: Acute Care Hospital [facility] Discharge Date/Time: 03/20/23 23:06
[2023-03-20] MEDS: Morphine 4 MG/ML Syringe IV (18:49)
[2023-03-20] MEDS: Ondansetron 4 MG/2 ML Vial IV (18:49)
[2023-03-20 18:54] LABS: Absolute Lymphocyte Count 0.74 X10^3/uL (0.83-4.51); Absolute Neutrophil Count 4.5 X10^3/uL (2.0-7.7); Basophil# 0.02 X10^3/uL; Basophil% 0.3 % (0-1); Eosinophils% 3.4 % (0-5); Hematocrit 35.8 % (40-54); Hemoglobin 11.9 g/dL (13.0-16.5); Lymphocyte # 0.74 X10^3/ul (0.83-4.51); Lymphocyte % 12.5 % (19-41); Mean Corp Hgb Conc 33.2 g/dL (32-36); Mean Corpuscular Hgb 32.1 pg (27.0-32.0); Mean Corpuscular Volume 96.5 fL (80-94); Mean Platelet Vol. 10.5 fl (6.2-12.0); Monocyte# 0.46 X10^3/uL; Monocyte% 7.8 % (0-10); NRBC Flagged by Analyzer 0 % (0-5); Neutrophil # 4.46 X10^3/uL (2.7-7.7); Neutrophil % 75.7 % (47-70); Platelet Count 158 K/mm3 (150-450); RBC Distribution Width CV 14.4 % (11.6-14.6); RBC Distribution Width SD 50.4 fl (35.1-43.9); Red Blood Count 3.71 M/mm3 (4.6-6.2); White Blood Count 5.9 K/mm3 (4.4-11.0)
[2023-03-20 18:56] LABS: Bacteria 0 SEEN /hpf (None Seen); Color, Urine Yellow (Yellow); Glucose, Dipstick 1000 mg/dl (Normal); Ketone-Dipstick Negative (Negative); Leukocyte Esterase-Dipstick Negative /ul (Negative); Mucous, Urine 0 SEEN /hpf (<or=2+); Nitrite-Dipstick Negative (Negative); Occult Blood-Urine Negative /ul (Negative); Protein-Dipstick 15 mg/dl (Negative); Red Blood Cells-Urine 0 SEEN /hpf (0-5); Specific Gravity, Urine 1.015 (1.002-1.030); Squamous Epithelial Cells - UA 0 SEEN /hpf (0-5); Urine Bilirubin Dipstick Negative (Negative); Urine Clarity Clear (Clear); Urine Urobilinogen Normal (Normal); White Blood Cells 0 SEEN /hpf (0-5)
[2023-03-20 19:15] LABS: BNP,B-Type NATRIURETIC PEPTIDE 121.6 pg/mL (0-100)
[2023-03-20 19:19] LABS: ALB/GLOB Ratio 0.9 RATIO (0.9-2.4); AST(SGOT) 19 U/L (15-37); Alanine Aminotransfer ALT/SGPT 24 U/L (16-61); Albumin, Serum 3.5 g/dL (3.2-5.0); Alkaline Phosphatase 108 U/L (45-117); Anion Gap 5 (5-15); BUN 23 mg/dL (7-18); BUN/Creat Ratio 14.9 RATIO (10-20); Calcium,Total 8.4 mg/dL (8.5-10.1); Chloride 104 mmol/L (98-107); Creatinine, Serum 1.54 mg/dL (0.70-1.30); EST Glomerular Filtration Rate 47 mL/min (>60); Est Glom Filt Rate - Afr Amer 57 mL/min (>60); Globulin 3.8 g/dL (2.2-4.2); Glucose 215 mg/dL (74-106); Potassium 3.7 mmol/L (3.5-5.1); Protein, Total 7.3 g/dL (6.4-8.2); Sodium Level 137 mmol/L (136-145); Troponin-I HS 24 pg/mL (3.0-78.0)
--- NOTE | 2023-03-20 19:22 | RAD_ITS ---
INDICATION: cough EXAMINATION/TECHNIQUE: X-RAY - XR Chest 1 View COMPARISON: Prior study dated: FINDINGS: LINES/DEVICES: Left sided cardiac pacer device in stable position. LUNGS: No consolidation, edema or effusion. No pneumothorax. MEDIASTINUM AND CARDIOVASCULAR STRUCTURES: Stable cardiomediastinal silhouette. Status post median sternotomy. BONES AND SOFT TISSUES: Unchanged osseous structures. Patent screws in left ribs are again seen. RAD/Chest 1 View (Portable) IMPRESSION: 1. No significant change. 2. No new infiltrate seen. Electronically Signed: Pankaj Mckee MD at 19:33 EST ,
[2023-03-20 20:19] VITALS: BP 124/58; PULSE 64; RESP 20; O2SAT 99
--- NOTE | 2023-03-20 20:41 | ED.RN ---
RN medicating pt with morphine and zofran. Pt began to stare off into space and not respond to RN questions. Pt did not respond to sternal rub. RN called for assistance. More staff entered room to lay eyes on pt, Dr. Olivas paged. Pt started to come around after roughly 4 minutes. stated this event happens often for him and it is not a new event.
[2023-03-20] MEDS: Meclizine 12.5 MG Tablet PO (20:56)
[2023-03-20 20:57] VITALS: BP 143/77; PULSE 64; RESP 20; TEMP 36.4; O2SAT 99
--- NOTE | 2023-03-20 21:37 | HP.PCM.HOS_ITS ---
HPI - General General Date of Admission: 03/20/23 Date of Service: 03/20/23 Chief Complaint: altered mental status HPI Narrative GIOVANNY LEONARDO, is a 72 M who presented to the emergency department at [facility] on 03/20/2023 with altered mental status. Patient was doing well otherwise and was at a restaurant when he felt dizzy and started having chest pain. The patient has chronic chest pain on a regular basis and follows with cardiology. He has a pacemaker. He has been compliant with his medications. He had a recent admission here for stroke workup which was unremarkable. Patient indicated he was feeling abnormally weak and that he has a spinning sensation intermittently. He is also had multiple near syncopal episodes previous to this and during this evening. He had an episode of unresponsiveness where he appeared to be awake but was staring into space. They did try to observe him ambulating and he kept trying to fall forward. His indicated this was not his norm and he indicated he was feeling unusually weak. Patient does have a very complex medical history at baseline. Vital signs on presentation showed temperature of 97.6, heart rate 66, blood pressure 159/81, respiratory was 18 oxygen saturations were 100% on room air. CBC showed a normal white count with a mild left shift at 75.7% neutrophilia. He was noted to be mildly anemic which is not typical for him. Hemoglobin was 11.9. And his baseline runs between 13 and 14. His chemistry panel shows normal electrolytes. BUN and creatinine are slightly elevated at 23 and 1.54 respectively. (Baseline serum creatinine fluctuates but appears to run between 1 and 1.3). Blood glucose is 215. Liver functions are normal. BNP is slightly elevated but stable for him. Urine is not consistent with infection. CT of the brain shows no acute findings. Chest x-ray shows no change from previous. EKG is atrial sensed V paced rhythm with a rate of 65 bpm, normal intervals and no ST-T wave changes consistent with acute ischemia. [facility], LAT[facility] Medical History (Updated 03/20/23 @ 23:[address] Varsha Short, ) Abnormal EKG Anemia Atherosclerotic heart disease stebbins coronary artery w/angina pectoris BiPAP (biphasic positive airway pressure) dependence CAD (coronary artery disease) Chest pain Chest pain Chronic hyperglycemia Chronic respiratory failure Congestive heart failure (CHF) Conversion reaction COPD (chronic obstructive pulmonary disease) Diabetes DM type 2 (diabetes mellitus, type 2) DNR (do not resuscitate) DNR (do not resuscitate) discussion Dysarthria Essential (primary) hypertension Former smoker Heart failure Hemiparesis, left History of fractured rib History of TIAs Hyperlipidemia Left-sided weakness Myocardial infarct Obesity On home oxygen therapy EKATERINA (obstructive sleep apnea) EKATERINA (obstructive sleep apnea) Pacemaker Pacemaker battery depletion Pulmonary embolism Sick sinus syndrome Stroke/cerebrovascular accident Syncope Wears hearing aid in both ears Home Medications aspirin 81 mg tablet,delayed release 81 mg PO DAILY HEART HEALTH 06/11/18 [History Last Taken 03/03/23] atorvastatin 80 mg tablet 80 mg PO QHS CHOLESTEROL 06/11/18 [History Last Taken 03/03/23] escitalopram oxalate 10 mg tablet 10 mg PO DAILY DEPRESSION 06/11/18 [History Last Taken 03/03/23] finasteride 5 mg tablet 5 mg PO DAILY PROSTATE 06/11/18 [History Last Taken 03/03/23] insulin regular hum U-500 conc 500 unit/mL(3 mL) subcut pen (Humulin R U-500 (Conc) Insulin Kwikpen) 130 unit subcut BID DIABETES 06/11/18 [History Last T aken 03/03/23] nitroglycerin 0.4 mg sublingual tablet 0.4 mg sublingual Q5M PRN CHEST PAIN #30 TABLETS 07/22/18 [Rx Last Taken 01/17/20] pantoprazole 40 mg tablet,delayed release 40 mg PO BID GERD 05/18/20 [History Last Taken 03/03/23] carvedilol 25 mg tablet 25 mg PO BID BLOOD PRESSURE 06/22/20 [History Last Taken 03/03/23] ranolazine 500 mg tablet,extended release,12 hr 500 mg PO Q12H CHEST PAIN 06/22/20 [History Last Taken 03/03/23] tamsulosin 0.4 mg capsule 0.4 mg PO QHS PROSTATE 08/10/20 [History Last Taken 03/03/23] clopidogrel 75 mg tablet (Plavix) 75 mg PO DAILY BLOOD THINNER 01/07/21 [History Last Taken 03/03/23] albuterol sulfate 2.5 mg/3 mL (0.083 %) solution for nebulization 2.5 mg inhalation Q6H PRN SHORTNESS OF BREATH/WHEEZING 12/12/21 [History Last Taken 03/03/23] ketoconazole 2 % shampoo 1 applic topical DAILY DRY SCALP 12/12/21 [History Last Taken 03/03/23] magnesium oxide 420 mg tablet 420 mg PO BID SUPPLEMENT 12/12/21 [History Last Taken 03/03/23] multivitamin with minerals 1 tab PO DAILY SUPPLEMENT 12/12/21 [History Last Taken 03/03/23] spironolactone 25 mg tablet (Aldactone) 25 mg PO DAILY BLOOD PRESSURE 09/10/22 [History Last Taken 03/03/23] guaifenesin 600 mg tablet, extended release 12 hr 1,200 mg (2 x 600 mg) PO Q12H PRN COUGH/CONGESTION #120 tabs 11/17/22 [Rx Last Taken 03/03/23] acetaminophen 325 mg tablet (Tylenol) 650 mg PO 4X/DAY PRN PAIN 01/27/23 [History Last Taken 03/03/23] cyclobenzaprine 10 mg tablet 10 mg PO BID PRN MUSCLE SPASMS 01/27/23 [History Last Taken 03/03/23] furosemide 40 mg tablet 40 mg PO DAILY EDEMA #0 tabs 01/29/23 [Rx Last Taken 03/03/23] diazepam 2 mg tablet (Valium) 2 mg PO TID PRN MUSCLE SPASMS 5 days #15 tabs 02/16/23 [Rx Last Taken 03/04/23] budesonide 160 mcg-glycopyr 9 mcg-formot 4.8 mcg/actuation HFA inhaler (Breztri Aerosphere) 2 inh inhalation BID SHORTNESS OF BREATH 03/04/23 [History Last Taken 03/03/23] carboxymethylcellulose sodium 0.5 % eye drops 1 drp EACH EYE TID PRN EYE DRYNESS 03/04/23 [History Last Taken 03/03/23] cholecalciferol (vitamin D3) 50 mcg (2,000 unit) capsule (D3-2000) 100 mcg PO D AILY SUPPLEMENT 03/04/23 [History Last Taken 03/03/23] empagliflozin 25 mg tablet (Jardiance) 25 mg PO DAILY DIABETES 03/04/23 [History Last Taken 03/03/23] guaifenesin 100 mg/5 mL oral liquid 200 mg PO TID PRN CONGESTION 03/04/23 [History Last Taken 03/03/23] Allergy/AdvReac Type Severity Reaction Status Date / Time ezetimibe Allergy Unknown Verified 02/16/23 03:08 Fish Containing Products Allergy Unknown Verified 02/16/23 03:08 glyburide Allergy Unknown Verified 02/16/23 03:08 isosorbide Allergy PT UNSURE Verified 02/04/23 12:39 OF REACTION lisinopril Allergy Unknown Verified 02/16/23 03:08 metformin Allergy Nausea Verified 02/16/23 03:08 metoprolol Allergy Unknown Verified 02/16/23 03:08 simvastatin Allergy Unknown Verified 02/16/23 03:08 tramadol Allergy Other Verified 02/16/23 03:08 iron AdvReac Mild Vomiting Verified 02/16/23 03:08 gabapentin AdvReac Other Verified 02/16/23 03:08 Family History Father No problems noted. Surgical History H/O coronary artery bypass surgery History of cholecystectomy History of coronary artery stent placement History of knee replacement procedure of left knee History of permanent cardiac pacemaker placement (01/14/21) Social History household members: spouse Smoking Status: Former smoker details: Unknown substance use type: does not use ROS Constitutional Constitutional: Reports fatigue and weakness; Denies anorexia, change in weight, chills, fever(s), malaise, night sweats or other Eyes Eyes: Denies blurry vision, change in eye color, change in vision, discharge from eye(s), double vision, erythema, eye pain, loss of vision or other ENT HEENT: Reports abnormal hearing and hearing loss; Denies dysphagia, ear pain, epistaxis, headache(s), nasal congestion, nasal discharge, post nasal drip, sinus pressure, sore throat or other Cardiovascular Cardiovascular: Reports chest pain and syncope; Denies claudication, dyspnea on exertion, edema, lightheadedness, orthopnea, palpitations, paroxysmal nocturnal dyspnea, rapid heart rate or other Respiratory/Chest Respiratory/Chest: Reports dyspnea and shortness of breath with exertion; Denies cough, excessive phlegm production, hemoptysis, productive cough, shortness of breath at rest, wheezing or other Gastrointestinal Gastrointestinal: Denies abdominal pain, coffee ground emesis, constipation, diarrhea, dyspepsia, hematemesis, hematochezia, loose stools, melena, nausea, vomiting or other Genitourinary Genitourinary: Denies burning urination, difficulty urinating, dysuria, hematuria, nocturia, urinary frequency, urinary hesitancy, urinary incontinence, urinary urgency or other Musculoskeletal Musculoskeletal: Reports back pain and joint pain; Denies arthralgias, joint stiffness, joint swelling, myalgias, neck pain or other Neurologic Neurologic: Reports abnormal gait, syncope and other Details: Altered mental status Psychiatric Psychiatric: Reports anxiety and depression; Denies homicidal ideation, suicidal ideation or other Endocrine Endocrinology: Denies change in body appearance, cold intolerance, excessive sweating, heat intolerance, polydipsia, polyuria or other Hematologic/Lymphatic Hematologic/Lymphatic: Denies anemia, easy bleeding, easy bruising, lymphadenopathy or other Allergic/Immunologic Allergic/Immunologic: Denies rhinitis, hives, eczemia, asthma or other Vital Signs Vital Signs Vital Signs: 03/20/23 18:23 03/20/23 18:21 03/20/23 20:19 Temperature 97.6 F L Temperature Source Temporal Pulse Rate 66 64 Respiratory Rate 18 20 H Respiratory Effort Normal Blood Pressure 159/81 H 124/58 H Blood Pressure Mean 107 80 Pulse Ox 100 99 Oxygen Delivery Method Room Air Room Air 03/20/23 20:57 Temperature 97.6 F L Temperature Source Pulse Rate 64 Respiratory Rate 20 H Respiratory Effort Blood Pressure 143/77 H Blood Pressure Mean 99 Pulse Ox 99 Oxygen Delivery Method Weight Weight: 113.5 kg Body Mass Index (BMI) 35.9 Physical Exam Const alert, oriented x3, no apparent distress, healthy appearing and well nourished; Negative for average body habitus Constitutional Narrative: Obese, older, white male, sitting in bed, currently appears comfortable and urinating, nontoxic, pleasant, chronically ill-appearing, appears older than stated age General Appearance: cooperative HEENT normocephalic, head/scalp atraumatic and moist oral mucous membranes HEENT Narrative: Mild to moderate hearing loss, edentulous, Mallampati 3, no thrush Eyes PERRL, EOMs intact bilaterally and conjunctivae normal Eyes Narrative: No scleral icterus, no nystagmus Neck no lymphadenopathy and supple Neck Narrative: Trachea midline, no thyroid enlargement Resp normal respiratory effort, no retractions, no use of accessory muscles and clear to auscultation bilaterally Resp Narrative: Diminished diffusely but clear Auscultation: Negative for rales, rhonchi or wheezes Cardio regular rate, regular rhythm, S1 normal heart sound, S2 normal heart sound, no murmurs, no rub, no gallops and no clicks GI normal to inspection, nondistended, normoactive bowel sounds, soft to palpation and non-tender Extremity no clubbing, cyanosis or edema Neuro oriented x3, CN's II-XII intact bilaterally, moves all extremities and no focal motor deficits Speech: speech normal Psych Psych Narrative: Eye contact is good, patient interacts appropriately, affect is slightly flat, really and appears to be at his baseline Results Lab / Micro Data 03/20/23 18:43 03/20/23 18:43 Labs: Laboratory Results - last 24 hr 03/20/23 18:43: WBC 5.9, RBC 3.71 L, Hgb 11.9 L, Hct 35.8 L, MCV 96.5 H, MCH 32.1 H, MCHC 33.2, RDW Std Deviation 50.4 H, RDW Coeff of Cinda 14.4, Plt Count 158, MPV 10.5, Immature Gran % (Auto) 0.300, Neut % (Auto) 75.7 H, Lymph % (Auto) 12.5 L, Nuckolls % (Auto) 7.8, Eos % (Auto) 3.4, Baso % (Auto) 0.3, Absolute Neuts (auto) 4.5, Absolute Lymphs (auto) 0.74 L, Nucleated RBC % 0, Sodium 137, Potassium 3.7, Chloride 104, Carbon Dioxide 28.0, Anion Gap 5, BUN 23 H, Creatinine 1.54 H, Estim Creat Clear Calc 54.70, Est GFR (MDRD) Af Amer 57 L, Est GFR (MDRD) Non-Af 47 L, BUN/Creatinine Ratio 14.9, Glucose 215 H, Calcium 8.4 L, Total Bilirubin 0.70, AST 19, ALT 24, Alkaline Phosphatase 108, Troponin I High Sens 24, B-Natriuretic Peptide 121.6 H, Total Protein 7.3, Albumin 3.5, Globulin 3.8, Albumin/Globulin Ratio 0.9 03/20/23 18:48: Urine Color Yellow, Urine Clarity Clear, Urine pH 6.0, Ur Specific [place] 1.015, Urine Protein 15 H, Urine Glucose (UA) 1000 H, Urine Ketones Negative, Urine Occult Blood Negative, Urine Nitrite Negative, Urine Bilirubin Negative, Urine Urobilinogen Normal, Ur Leukocyte Esterase Negative, Urine RBC 0 SEEN, Urine WBC 0 SEEN, Ur Squamous Epith Cells 0 SEEN, Urine Bacteria 0 SEEN, Urine Mucus 0 SEEN Imaging Radiology Impression Brain CT 03/20/23 18:39 IMPRESSION: No acute intracranial process. Electronically Signed: Pankaj Mckee MD at 19:31 EST , Chest X-Ray 03/20/23 19:22 IMPRESSION: 1. No significant change. 2. No new infiltrate seen. Electronically Signed: Pankaj Mckee MD at 19:33 EST , Assessment & Plan Assessment/Plan (1) Inability to walk: (2) AMS (altered mental status): (3) Elevated serum creatinine: (4) Anemia: PLAN: Plan Altered mental status -Etiology is unclear -Will monitor on telemetry for any signs of arrhythmia -We will cycle cardiac enzymes -Check orthostatic vitals and if positive will give 1 L bolus and recheck in a.m. -Recent echocardiogram done echocardiogram done here on 03/04/2023 that showed a stable EF at 45 to 50% and hypokinesia with no significant changes and a negative bubble study. -TSH 0.65 on 01/2023 -Check EEG -Check MRI with and without contrast--> patient had recent MRI without contrast for stroke workup that was unremarkable -If workup unremarkable would recommend Holter versus event monitor at discharge -Hold Flexeril and Valium -Neuro consult Anemia -Hemoglobin is 11.9 on presentation and it appears his baseline is between 13 and 14 lately -Patient is on dual antiplatelet therapy at baseline -Check iron studies next-check ferritin -Check stool guaiac -Will continue aspirin and Plavix at this time Elevated serum creatinine -Patient does not meet criteria for CONI with a serum creatinine of 1.54 and a baseline between 1.1 and 1.3 however he does appear slightly dehydrated -Orthostatic vitals are pending and if they are positive we will bolus with IV fluids and hold Lasix for now -Repeat BMP in a.m. Debility -Consult PT/OT -Case management/social work consultation for assistance with discharge planning Chronic hypoxic respiratory failure secondary to COPD/EKATERINA/lung nodule -Continue home BiPAP at 16/9 -Patient is on chronic oxygen at 4 L--> currently stable on this -Continue home inhalers -As needed albuterol -Continue home Mucinex -Repeat imaging for lung nodule pending in April 2023 CAD/HTN/HPL -History of CABG -Continue home Aldactone-hold if orthostatic positive, Ranexa, Plavix, Coreg for, atorvastatin and baby aspirin -Continue Lasix for now but if orthostatic positive we will hold -Continue home Jardiance -Continued outpatient follow-up History of stroke -Continue aspirin -Continue Plavix DM-2 -Patient with very resistant diabetes as he is on U-500 insulin -Continue home insulin -Continue home Jardiance -SSI -Cardiac/carb controlled diet History of sick sinus syndrome -Status post pacemaker placement -Stable GERD -continue home PPI BPH -Continue home -Continue home Proscar Depression -Continue home Celexa Obesity -BMI 34.9 -Complicates treatment, prognosis, outcomes -Recommend weight loss DVT prophylaxis -Subcu Lovenox CODE STATUS -DNR CCA no intubation as verified on admission Charges/Coding Visit Charges Inpatient E&M: 13751 Init Hosp L2
--- NOTE | 2023-03-20 21:55 | ED.RN ---
[facility] WAS [facility] , MSG LEFT WITH BED BOARD THAT PT IS BEING ADMITTED.
[2023-03-20] MEDS: oxyCODONE 5 MG Tablet PO (22:48)
[2023-03-20 23:20] VITALS: BP 118/83; BP 132/75; BP 133/72; PULSE 63; PULSE 66; RESP 18; TEMP 36.8; O2SAT 99
[2023-03-20 23:29] VITALS: BMI 34.2
[2023-03-20 23:35] LABS: Ferritin 113 ng/mL (26-388); Iron 58 ug/dL (65-175); Iron Binding Capacity,Total 250 ug/dL (250-450); PERCENT IRON SATURATION 23.2 % (15.0-55.0)
[2023-03-21] VITALS (10 sets, daily range): BP systolic 113–149; BP diastolic 53–78; PULSE 58–65; RESP 16–20; TEMP 35.8–36.7; O2SAT 98–100
[2023-03-21] MEDS: Ranolazine 500 MG Tablet PO ×3 (00:17→21:00)
[2023-03-21] MEDS: Carvedilol 25 MG Tablet PO ×3 (00:17→17:36)
[2023-03-21] MEDS: Pantoprazole Sodium 40 MG Tablet PO ×3 (00:17→20:59)
[2023-03-21] MEDS: Atorvastatin Calcium 80 MG Tablet PO ×2 (00:17→20:59)
[2023-03-21] MEDS: Tamsulosin HCl 0.4 MG Capsule 0.400000000000000022 MG PO ×2 (00:18→20:59)
[2023-03-21] MEDS: Lactated Ringers 1,000 ML 999 ML IV (00:23)
[2023-03-21 00:58] LABS: Troponin-I HS 30 pg/mL (3.0-78.0)
[2023-03-21] MEDS: Acetaminophen 325 MG Tablet 650 MG PO (01:52)
[2023-03-21 02:31] LABS: Troponin-I HS 28 pg/mL (3.0-78.0)
[2023-03-21 06:28] LABS: Absolute Lymphocyte Count 0.89 X10^3/uL (0.83-4.51); Absolute Neutrophil Count 3.7 X10^3/uL (2.0-7.7); Basophil# 0.02 X10^3/uL; Basophil% 0.4 % (0-1); Eosinophil# 0.22 X10^3/uL; Eosinophils% 4.1 % (0-5); Hematocrit 33.7 % (40-54); Hemoglobin 11.2 g/dL (13.0-16.5); Lymphocyte # 0.89 X10^3/ul (0.83-4.51); Lymphocyte % 16.7 % (19-41); Mean Corp Hgb Conc 33.2 g/dL (32-36); Mean Corpuscular Hgb 31.9 pg (27.0-32.0); Mean Platelet Vol. 10.6 fl (6.2-12.0); Monocyte# 0.53 X10^3/uL; Monocyte% 9.9 % (0-10); NRBC Flagged by Analyzer 0 % (0-5); Neutrophil # 3.67 X10^3/uL (2.7-7.7); Neutrophil % 68.7 % (47-70); Platelet Count 137 K/mm3 (150-450); RBC Distribution Width CV 14.6 % (11.6-14.6); Red Blood Count 3.51 M/mm3 (4.6-6.2); White Blood Count 5.3 K/mm3 (4.4-11.0)
[2023-03-21 06:54] LABS: ALB/GLOB Ratio 0.8 RATIO (0.9-2.4); AST(SGOT) 17 U/L (15-37); Alanine Aminotransfer ALT/SGPT 19 U/L (16-61); Alkaline Phosphatase 88 U/L (45-117); Anion Gap 5 (5-15); BUN 22 mg/dL (7-18); BUN/Creat Ratio 20.2 RATIO (10-20); Calcium,Total 8.2 mg/dL (8.5-10.1); Chloride 108 mmol/L (98-107); Creatinine, Serum 1.09 mg/dL (0.70-1.30); EST Glomerular Filtration Rate 71 mL/min (>60); Est Glom Filt Rate - Afr Amer 85 mL/min (>60); Estimated Creatinine Clearance 75.62 ml/min; Globulin 3.6 g/dL (2.2-4.2); Glucose 154 mg/dL (74-106); Magnesium 2.1 mg/dL (1.6-2.6); Phosphorus 3.8 mg/dL (2.5-4.9); Potassium 3.7 mmol/L (3.5-5.1); Protein, Total 6.6 g/dL (6.4-8.2); Sodium Level 141 mmol/L (136-145); Troponin-I HS 28 pg/mL (3.0-78.0)
[2023-03-21] MEDS: Budesonide Respules 0.5 MG/2 ML AMPUL.NEB. INHALATION ×2 (06:57→19:53)
[2023-03-21] MEDS: Ipratropium/Albuterol Sulfate 3 ML AMPUL.NEB INHALATION ×2 (06:57→19:54)
--- NOTE | 2023-03-21 08:15 | PN.HOSP_ITS ---
Subjective Subjective Still unresponsive. Nursing did report to me that he did request for some pain medications earlier but currently, the patient was not responsive to me at all though he was awake. Objective Data Objective Data Vital Signs: Vital Signs Temp Pulse Resp BP Pulse Ox O2 Del Method O2 Flow Rate 35.8 C L 60 18 116/53 L 100 CPAP 4 03/21/23 05:05 03/21/23 05:10 03/21/23 05:05 03/21/23 05:10 03/21/23 05:05 03/21/23 05:05 03/21/23 05:05 Oxygen Flow Rate (L/min) 4 Oxygen Delivery Method CPAP Weight: 108.7 kg Body Mass Index (BMI) 34.2 Intake & Output: Intake and Output for Last 24 Hours 03/19/23 03/20/23 03/21/23 23:59 23:59 23:59 Intake Total 1170 / 1170 Output Total 550 / 550 Balance 620 / 620 Lab / Micro Data 03/21/23 05:50 03/21/23 05:40 Labs: Laboratory Results - last 24 hr 03/20/23 18:43: WBC 5.9, RBC 3.71 L, Hgb 11.9 L, Hct 35.8 L, MCV 96.5 H, MCH 32.1 H, MCHC 33.2, RDW Std Deviation 50.4 H, RDW Coeff of Cinda 14.4, Plt Count 158, MPV 10.5, Immature Gran % (Auto) 0.300, Neut % (Auto) 75.7 H, Lymph % (Auto) 12.5 L, Haines % (Auto) 7.8, Eos % (Auto) 3.4, Baso % (Auto) 0.3, Absolute Neuts (auto) 4.5, Absolute Lymphs (auto) 0.74 L, Nucleated RBC % 0, Sodium 137, Potassium 3.7, Chloride 104, Carbon Dioxide 28.0, Anion Gap 5, BUN 23 H, Creatinine 1.54 H, Estim Creat Clear Calc 54.70, Est GFR (MDRD) Af Amer 57 L, Est GFR (MDRD) Non-Af 47 L, BUN/Creatinine Ratio 14.9, Glucose 215 H, Calcium 8.4 L, Iron 58 L, TIBC 250, Iron Saturation 23.2, Ferritin 113, Total Bilirubin 0.70, AST 19, ALT 24, Alkaline Phosphatase 108, Troponin I High Sens 24, B- Natriuretic Peptide 121.6 H, Total Protein 7.3, Albumin 3.5, Globulin 3.8, Albumin/Globulin Ratio 0.9 03/20/23 18:48: Urine Color Yellow, Urine Clarity Clear, Urine pH 6.0, Ur Specific [place] 1.015, Urine Protein 15 H, Urine Glucose (UA) 1000 H, Urine Ketones Negative, Urine Occult Blood Negative, Urine Nitrite Negative, Urine Bilirubin Negative, Urine Urobilinogen Normal, Ur Leukocyte Esterase Negative, Urine RBC 0 SEEN, Urine WBC 0 SEEN, Ur Squamous Epith Cells 0 SEEN, Urine Bacteria 0 SEEN, Urine Mucus 0 SEEN 03/21/23 00:32: Troponin I High Sens 30 03/21/23 02:03: Troponin I High Sens 28 03/21/23 05:40: Sodium 141, Potassium 3.7, Chloride 108 H, Carbon Dioxide 28.0, Anion Gap 5, BUN 22 H, Creatinine 1.09, Estim Creat Clear Calc 75.62, Est GFR (MDRD) Af Amer 85, Est GFR (MDRD) Non-Af 71, BUN/Creatinine Ratio 20.2 H, G lucose 154 H, Calcium 8.2 L, Phosphorus 3.8, Magnesium 2.1, Total Bilirubin 0.70, AST 17, ALT 19, Alkaline Phosphatase 88, Troponin I High Sens 28, Total Protein 6.6, Albumin 3.0 L, Globulin 3.6, Albumin/Globulin Ratio 0.8 L 03/21/23 05:50: WBC 5.3, RBC 3.51 L, Hgb 11.2 L, Hct 33.7 L, MCV 96.0 H, MCH 31. 9, MCHC 33.2, RDW Std Deviation 50.0 H, RDW Coeff of Cinda 14.6, Plt Count 137 L, MPV 10.6, Immature Gran % (Auto) 0.200, Neut % (Auto) 68.7, Lymph % (Auto) 16.7 L, Haines % (Auto) 9.9, Eos % (Auto) 4.1, Baso % (Auto) 0.4, Absolute Neuts (auto) 3.7, Absolute Lymphs (auto) 0.89, Nucleated RBC % 0 Micro: Microbiology 03/20/23 21:00 Mucosa - Nose SARS-CoV-2, Influenza & RSV (PCR) - Final Radiography Diagnostic Testing: Radiology Impression Brain CT 03/20/23 18:39 IMPRESSION: No acute intracranial process. Electronically Signed: Pankaj Mckee MD at 19:31 EST , Chest X-Ray 03/20/23 19:22 IMPRESSION: 1. No significant change. 2. No new infiltrate seen. Electronically Signed: Pankaj Mckee MD at 19:33 EST , Physical Exam Narrative Awake. Nonverbal. Nontoxic. Resp normal respiratory effort, no retractions, no use of accessory muscles and clear to auscultation bilaterally Cardio regular rate, regular rhythm, S1 normal heart sound and S2 normal heart sound GI normal to inspection, nondistended, normoactive bowel sounds, soft to palpation and non-tender Assessment & Plan Assessment/Plan (1) Inability to walk: (2) AMS (altered mental status): (3) Elevated serum creatinine: (4) Anemia: PLAN: Plan Change in mental status * Patient nonverbal. Though this is not consistent per discussion with nursing and patient has presented here with similar complaints most recently last month. Concern per multiple nurses that he may be playing possum . EEG underway. MRI will be on hold until it can be may compatible with his pacer. * As expressed by Dr. Holman in February that this may be psychosomatic. * Did discuss with nursing that we will need to hold potentiating medications including narcotics. Anemia * Hemoglobin is 11.2 on presentation and it appears his baseline is between 13 and 14 lately * Monitor Debility * Consult PT/OT * Case management/social work consultation for assistance with discharge planning Chest pain: * chronic. troponin series negative. No additional work up at this time. Chronic conditions: * Chronic hypoxic respiratory failure secondary to COPD/EKATERINA/lung nodule-Continue home BiPAP at 16/9-Patient is on chronic oxygen at 4 L--> currently stable on this-Continue home inhalers-As needed albuterol-Continue home Mucinex-Repeat imaging for lung nodule pending in April 2023 * History of stroke-Continue aspirin-Continue Plavix * [id number] with very resistant diabetes as he is on U-500 insulin-Continue home insulin-Continue home [id number]/carb controlled diet * History of sick sinus syndrome-Status post pacemaker placement-Stable * GERD-continue home PPI * BPH-Continue home-Continue home Proscar * Depression-Continue home Celexa * Obesity BMI 34.9- DVT prophylaxis -Subcu Lovenox CODE STATUS -DNR CCA no intubation as verified on admission Charges/Coding Visit Charges Inpatient E&M: 77769 Subs Hosp L2
--- NOTE | 2023-03-21 10:12 | CASEMGMT ---
Addendum entered by Leann Abbasi 03/21/23 10:19: Pt lying in bed with eyes closed and pap on. Assessment time was 0915. Original Note: KRISTI GERONIMO Assessment: Face to Face with pt for initial transition planning/care coordination assessment. KRISTI GERONIMO introduced self and role at [facility], pt voices understanding and consents to assessment. Pt is A&O x3 and answers all questions appropriately at this time, speech difficult to understand. Care providers, pharmacy, and demographics verified/updated. Admitting Dx: altered mental status PCP:[facility], could not understand name of PCP Specialists:[facility]; frances Velez Preferred Pharmacy: [facility] Insurance: [facility] A; ID [facility]cription Benefit[facility] LNOK: Lucina Coello, Living Arrangements: Pt lives with in a 1 story home with 1 step to enter. Pt reports being I in ADL's and manages housekeeping tasks. Pt denies concerns at home. Transportation: Pt provides transportation. DME:cane, walker, w/c, BSC, electric scooter, shower chair, bipap, [facility] and bleeds through pap and portability with tank in car, pox, nebulizer, CGM with sufficient supplies, rollator [facility] Pt states no concerns with going home at time of dc. He declines wanting HH at this time. He states he will see how he does. Pt states no further concerns/needs. CM to follow. Advised pt to ask CM if any further question/concerns/needs arise, voices understanding. Pt Goal: Home Plan: TBD pending therapy evals, course of hospitalization, verify oxygen
[2023-03-21] MEDS: Clopidogrel Bisulfate 75 MG Tablet PO (12:22)
[2023-03-21] MEDS: Multivitamins,Ther W-Minerals Tablet 1 TABLET PO (12:22)
[2023-03-21] MEDS: Aspirin E.C. 81 MG Tablet PO (12:22)
[2023-03-21] MEDS: Cholecalciferol (VIT D3) 25 MCG TABLET (1,000 UNITS) 50 MCG PO (12:22)
[2023-03-21] MEDS: Empagliflozin 25 MG Tablet PO (12:23)
[2023-03-21] MEDS: Escitalopram Oxalate 10 MG Tablet PO (12:23)
[2023-03-21] MEDS: Insulin U-500 UNITS/ML PEN 130 UNITS SC ×2 (12:29→17:34)
[2023-03-21 12:42] LABS: Bedside Glucose 179 mg/dL (74-106)
--- NOTE | 2023-03-21 12:42 | CON.PCM.NE_ITS ---
Assessment and Plan: Neuro Assessment/Plan GIOVANNY LEONARDO is a 72 M with a past medical history of previous RIGHT MCA stroke, being evaluated by Teleneurology for vertiginous symptoms, difficulty with balance and tendency to fall towards left (as mentioned by ) , episode of unresponsiveness with staring ,chest pain. Neurological exam comprised of slurred/dysarthric speech , left sided weakness and numbness. Diagnosis: Differentials include acute posterior circulation stroke , benign positional vertigo , cardiogenic syncope ,less likely seizure. Plan: Routine EEG MRI Brain , if positive for new stroke,may need stroke work up (repeat CT angio ,ECHO ,HBA1C , LDL) Vestibular rehab therapy ECHO,EKG and pace maker interrogation I personally attended this patient and spent a total time of 50 minutes evaluating this patient including clinical assessment, review of chart, medical history imaging, and determining appropriate treatment and workup. Ilsa Crisostomo MD [facility] , Teleneurology Department HPI Consult Data Date of Consult: 03/21/23 HPI Narrative HPI Narrative: GIOVANNY LEONARDO, is a 72 M who presents with vertiginous symptoms. Patient was doing well otherwise and was at a restaurant when he felt vertiginous symptoms and started having chest pain. The patient has chronic chest pain on a regular basis and follows with cardiology. He has a pacemaker. He was recently admitted for worsening of his previous stroke symptoms and went MRI brain that was negative for acute stroke. He had an episode of unresponsiveness where he appeared to be awake but was staring into space. He does not remember the event. He had history of seizures in the past and was not Keppra at some point that was discontinued 2-3 years ago as per . CT Head didnot showed no findings. As per HPI, Vital signs on presentation showed temperature of 97.6, heart rate 66, blood pressure 159/81, respiratory was 18 oxygen saturations were 100% on room air. CBC showed a normal white count with a mild left shift at 75.7% neutrophilia. He was noted to be mildly anemic which is not typical for him. Hemoglobin was 11.9. And his baseline runs between 13 and 14. His chemistry p iris shows normal electrolytes. BUN and creatinine are slightly elevated at 23 and 1.54 respectively. (Baseline serum creatinine fluctuates but appears to run between 1 and 1.3). Blood glucose is 215. Liver functions are normal. BNP is slightly elevated but stable for him. Urine is not consistent with infection. . Chest x-ray shows no change from previous. EKG is atrial sensed V paced rhy thm with a rate of 65 bpm, normal intervals and no ST-T wave changes consistent with acute ischemia. REPLACED BY [facility] Medical History (Updated 03/20/23 @ 23:[address] Varsha Short, DO) Abnormal EKG Anemia Atherosclerotic heart disease [place] coronary artery w/angina pectoris BiPAP (biphasic positive airway pressure) dependence CAD (coronary artery disease) Chest pain Chest pain Chronic hyperglycemia Chronic respiratory failure Congestive heart failure (CHF) Conversion reaction COPD (chronic obstructive pulmonary disease) Diabetes DM type 2 (diabetes mellitus, type 2) DNR (do not resuscitate) DNR (do not resuscitate) discussion Dysarthria Essential (primary) hypertension Former smoker Heart failure Hemiparesis, left History of fractured rib History of TIAs Hyperlipidemia Left-sided weakness Myocardial infarct Obesity On home oxygen therapy EKATERINA (obstructive sleep apnea) EKATERINA (obstructive sleep apnea) Pacemaker Pacemaker battery depletion Pulmonary embolism Sick sinus syndrome Stroke/cerebrovascular accident Syncope Wears hearing aid in both ears Home Medications aspirin 81 mg tablet,delayed release 81 mg PO DAILY HEART HEALTH 06/11/18 [History Last Taken 03/03/23] atorvastatin 80 mg tablet 80 mg PO QHS CHOLESTEROL 06/11/18 [History Last Taken 03/03/23] escitalopram oxalate 10 mg tablet 10 mg PO DAILY DEPRESSION 06/11/18 [History Last Taken 03/03/23] finasteride 5 mg tablet 5 mg PO DAILY PROSTATE 06/11/18 [History Last Taken 03/03/23] insulin regular hum U-500 conc 500 unit/mL(3 mL) subcut pen (Humulin R U-500 (Conc) Insulin Kwikpen) 130 unit subcut BID DIABETES 06/11/18 [History Last Taken 03/03/23] nitroglycerin 0.4 mg sublingual tablet 0.4 mg sublingual Q5M PRN CHEST PAIN #30 TABLETS 07/22/18 [Rx Last Taken 01/17/20] pantoprazole 40 mg tablet,delayed release 40 mg PO BID GERD 05/18/20 [History Last Taken 03/03/23] carvedilol 25 mg tablet 25 mg PO BID BLOOD PRESSURE 06/22/20 [History Last Taken 03/03/23] ranolazine 500 mg tablet,extended release,12 hr 500 mg PO Q12H CHEST PAIN 06/22/20 [History Last Taken 03/03/23] tamsulosin 0.4 mg capsule 0.4 mg PO QHS PROSTATE 08/10/20 [History Last Taken 03/03/23] clopidogrel 75 mg tablet (Plavix) 75 mg PO DAILY BLOOD THINNER 01/07/21 [History Last Taken 03/03/23] albuterol sulfate 2.5 mg/3 mL (0.083 %) solution for nebulization 2.5 mg inhalation Q6H PRN SHORTNESS OF BREATH/WHEEZING 12/12/21 [History Last Taken 03/03/23] ketoconazole 2 % shampoo 1 applic topical DAILY DRY SCALP 12/12/21 [History Last Taken 03/03/23] magnesium oxide 420 mg tablet 420 mg PO BID SUPPLEMENT 12/12/21 [History Last Taken 03/03/23] multivitamin with minerals 1 tab PO DAILY SUPPLEMENT 12/12/21 [History Last Taken 03/03/23] spironolactone 25 mg tablet (Aldactone) 25 mg PO DAILY BLOOD PRESSURE 09/10/22 [History Last Taken 03/03/23] guaifenesin 600 mg tablet, extended release 12 hr 1,200 mg (2 x 600 mg) PO Q12H PRN COUGH/CONGESTION #120 tabs 11/17/22 [Rx Last Taken 03/03/23] acetaminophen 325 mg tablet (Tylenol) 650 mg PO 4X/DAY PRN PAIN 01/27/23 [History Last Taken 03/03/23] cyclobenzaprine 10 mg tablet 10 mg PO BID PRN MUSCLE SPASMS 01/27/23 [History Last Taken 03/03/23] furosemide 40 mg tablet 40 mg PO DAILY EDEMA #0 tabs 01/29/23 [Rx Last Taken 03/03/23] diazepam 2 mg tablet (Valium) 2 mg PO TID PRN MUSCLE SPASMS 5 days #15 tabs 03/11 [Rx Last Taken 03/04/23] budesonide 160 mcg-glycopyr 9 mcg-formot 4.8 mcg/actuation HFA inhaler (Breztri Aerosphere) 2 inh inhalation BID SHORTNESS OF BREATH 03/04/23 [History Last Taken 03/03/23] carboxymethylcellulose sodium 0.5 % eye drops 1 drp EACH EYE TID PRN EYE DRYNESS 03/04/23 [History Last Taken 03/03/23] cholecalciferol (vitamin D3) 50 mcg (2,000 unit) capsule (D3-2000) 100 mcg PO DAILY SUPPLEMENT 03/04/23 [History Last Taken 03/03/23] empagliflozin 25 mg tablet (Jardiance) 25 mg PO DAILY DIABETES 03/04/23 [History Last Taken 03/03/23] guaifenesin 100 mg/5 mL oral liquid 200 mg PO TID PRN CONGESTION 03/04/23 [History Last Taken 03/03/23] Allergy/AdvReac Type Severity Reaction Status Date / Time ezetimibe Allergy Unknown Verified 02/16/23 03:08 Fish Containing Products Allergy Unknown Verified 02/16/23 03:08 glyburide Allergy Unknown Verified 02/16/23 03:08 isosorbide Allergy PT UNSURE Verified 02/04/23 12:39 OF REACTION lisinopril Allergy Unknown Verified 02/16/23 03:08 metformin Allergy Nausea Verified 02/16/23 03:08 metoprolol Allergy Unknown Verified 02/16/23 03:08 simvastatin Allergy Unknown Verified 02/16/23 03:08 tramadol Allergy Other Verified 02/16/23 03:08 iron AdvReac Mild Vomiting Verified 02/16/23 03:08 gabapentin AdvReac Other Verified 02/16/23 03:08 Family History Father No problems noted. Surgical History H/O coronary artery bypass surgery History of cholecystectomy History of coronary artery stent placement History of knee replacement procedure of left knee History of permanent cardiac pacemaker placement (01/14/21) Social History household members: spouse Smoking Status: Former smoker details: Unknown substance use type: does not use Vital Signs Vital Signs Vital Signs: 03/20/23 18:23 03/20/23 18:21 03/20/23 20:19 Temperature 97.6 F L Temperature Source Temporal Pulse Rate 66 64 Pulse Rate [Lying] Pulse Rate [Sitting (for 1 minute prior to obtaining)] Pulse Strength Respiratory Rate 18 20 H Respiratory Effort Normal Respiratory Depth Respiratory Pattern Blood Pressure 159/81 H 124/58 H Blood Pressure [Lying] Blood Pressure [Sitting (for 1 minute prior to obtaining)] Blood Pressure Mean 107 80 Blood Pressure Mean [Lying] Blood Pressure Mean [Sitting (for 1 minute prior to obtaining)] Blood Pressure Source Blood Pressure Position Blood Pressure Location Pulse Ox 100 99 Oxygen Delivery Method Room Air Room Air Oxygen Flow Rate (L/min) 03/20/23 20:57 03/20/23 23:20 03/20/23 23:20 Temperature 97.6 F L 98.3 F Temperature Source Oral Pulse Rate 64 66 Pulse Rate [Lying] 63 Pulse Rate [Sitting (for 1 minute prior to obtaining)] Pulse Strength Respiratory Rate 20 H 18 Respiratory Effort Respiratory Depth Respiratory Pattern Blood Pressure 143/77 H 132/75 H Blood Pressure [Lying] 133/72 H Blood Pressure [Sitting (for 1 minute prior to obtaining)] 118/83 H Blood Pressure Mean 99 94 Blood Pressure Mean [Lying] 92 Blood Pressure Mean [Sitting (for 1 minute prior to obtaining)] 94 Blood Pressure Source Monitor Blood Pressure Position Semi-Fowlers Blood Pressure Location Left Arm Pulse Ox 99 99 Oxygen Delivery Method Nasal Cannula Oxygen Flow Rate (L/min) 4 03/20/23 23:44 03/21/23 00:01 03/21/23 05:05 Temperature 96.4 F L Temperature Source Temporal Pulse Rate 60 Pulse Rate [Lying] Pulse Rate [Sitting (for 1 minute prior to obtaining)] Pulse Strength Normal (2+) Respiratory Rate 18 Respiratory Effort Normal Non-Labored Respiratory Depth Normal Respiratory Pattern Normal Blood Pressure 116/53 L Blood Pressure [Lying] Blood Pressure [Sitting (for 1 minute prior to obtaining)] Blood Pressure Mean 74 Blood Pressure Mean [Lying] Blood Pressure Mean [Sitting (for 1 minute prior to obtaining)] Blood Pressure Source Monitor Blood Pressure Position Right Lateral Blood Pressure Location Left Arm Pulse Ox 100 Oxygen Delivery Method Nasal Cannula CPAP Oxygen Flow Rate (L/min) 4 4 03/21/23 05:10 03/21/23 00:24 03/21/23 06:57 Temperature Temperature Source Pulse Rate 60 Pulse Rate [Lying] 60 Pulse Rate [Sitting (for 1 minute prior to obtaining)] 60 Pulse Strength Respiratory Rate 20 H Respiratory Effort Respiratory Depth Respiratory Pattern Tachypnea Blood Pressure Blood Pressure [Lying] 116/53 L Blood Pressure [Sitting (for 1 minute prior to obtaining)] 121/65 H Blood Pressure Mean Blood Pressure Mean [Lying] 74 Blood Pressure Mean [Sitting (for 1 minute prior to obtaining)] 83 Blood Pressure Source Blood Pressure Position Blood Pressure Location Pulse Ox 98 98 Oxygen Delivery Method Bi-pap Oxygen Flow Rate (L/min) 4 03/21/23 09:58 03/21/23 10:16 Temperature 97.8 F Temperature Source Oral Pulse Rate 65 Pulse Rate [Lying] Pulse Rate [Sitting (for 1 minute prior to obtaining)] Pulse Strength Respiratory Rate 16 Respiratory Effort Normal Non-Labored Respiratory Depth Normal Respiratory Pattern Normal Blood Pressure 113/54 L Blood Pressure [Lying] Blood Pressure [Sitting (for 1 minute prior to obtaining)] Blood Pressure Mean 73 Blood Pressure Mean [Lying] Blood Pressure Mean [Sitting (for 1 minute prior to obtaining)] Blood Pressure Source Monitor Blood Pressure Position Semi-Fowlers Blood Pressure Location Left Arm Pulse Ox 98 Oxygen Delivery Method Nasal Cannula Nasal Cannula Oxygen Flow Rate (L/min) 4 4 Weight Weight: 108.7 kg Body Mass Index (BMI) 34.2 EEG Results Procedure Details EEG Procedure Details: GIOVANNY LEONARDO is a 72 year old M with a past medical history of , who presents for evaluation of Electroencephalogram on DATE at TIME Physical Exam Neuro Neuro Narrative: -? General: Laying comfortably in bed; in no acute distress. -? HENT: Normal oropharynx and mucosa. Normal external appearance of ears and nose. Exophthalmos. -? Neck: Supple, no pain or tenderness -? CV:? No peripheral edema. -? Pulmonary:? Normal respiratory effort. -? Ext: No cyanosis, edema, or deformity -? Skin: No rash. Normal palpation of skin.? -? Musculoskeletal: full range of motion; no joint tenderness. Normal digits and nails by inspection. No clubbing. -? NEURO: -? Mental Status: The patient was alert and oriented -? Language: speech is slurred and difficult to understand.? -? Cranial Nerves: PERRL 2 mm/brisk. EOMI, visual flores full, no facial asymmetry, facial sensation intact, hearing intact, tongue midline, no evidence of atrophy or fibrillations. As performed by the nurse. -? Strength :3/5 over left and lower extermity,4+/5 over right side. R L R L Babinski -? Tone: is normal and bulk is normal -? Sensation- descrease light touch involving left side -? Coordination:normal on right side -? Gait- deferred Lab / Micro Data 03/21/23 05:50 03/21/23 05:40 Labs: Laboratory Results - last 24 hr 03/20/23 18:43: WBC 5.9, RBC 3.71 L, Hgb 11.9 L, Hct 35.8 L, MCV 96.5 H, MCH 32.1 H, MCHC 33.2, RDW Std Deviation 50.4 H, RDW Coeff of Cinda 14.4, Plt Count 158, MPV 10.5, Immature Gran % (Auto) 0.300, Neut % (Auto) 75.7 H, Lymph % (Auto) 12.5 L, [place] % (Auto) 7.8, Eos % (Auto) 3.4, Baso % (Auto) 0.3, Absolute Neuts (auto) 4.5, Absolute Lymphs (auto) 0.74 L, Nucleated RBC % 0, Sodium 137, Potassium 3.7, Chloride 104, Carbon Dioxide 28.0, Anion Gap 5, BUN 23 H, Creat inine 1.54 H, Estim Creat Clear Calc 54.70, Est GFR (MDRD) Af Amer 57 L, Est GFR (MDRD) Non-Af 47 L, BUN/Creatinine Ratio 14.9, Glucose 215 H, Calcium 8.4 L, Iron 58 L, TIBC 250, Iron Saturation 23.2, Ferritin 113, Total Bilirubin 0.70, AST 19, ALT 24, Alkaline Phosphatase 108, Troponin I High Sens 24, B-Natriuretic Peptide 121.6 H, Total Protein 7.3, Albumin 3.5, Globulin 3.8, Albumin/Globulin Ratio 0.9 03/20/23 18:48: Urine Color Yellow, Urine Clarity Clear, Urine pH 6.0, Ur Specific Calvin 1.015, Urine Protein 15 H, Urine Glucose (UA) 1000 H, Urine Ketones Negative, Urine Occult Blood Negative, Urine Nitrite Negative, Urine Bilirubin Negative, Urine Urobilinogen Normal, Ur Leukocyte Esterase Negative, Urine RBC 0 SEEN, Urine WBC 0 SEEN, Ur Squamous Epith Cells 0 SEEN, Urine Bacteria 0 SEEN, Urine Mucus 0 SEEN 03/21/23 00:32: Troponin I High Sens 30 03/21/23 02:03: Troponin I High Sens 28 03/21/23 05:40: Sodium 141, Potassium 3.7, Chloride 108 H, Carbon Dioxide 28.0, Anion Gap 5, BUN 22 H, Creatinine 1.09, Estim Creat Clear Calc 75.62, Est GFR (MDRD) Af Amer 85, Est GFR (MDRD) Non-Af 71, BUN/Creatinine Ratio 20.2 H, Glucose 154 H, Calcium 8.2 L, Phosphorus 3.8, Magnesium 2.1, Total Bilirubin 0.70, AST 17, ALT 19, Alkaline Phosphatase 88, Troponin I High Sens 28, Total Protein 6.6, Albumin 3.0 L, Globulin 3.6, Albumin/Globulin Ratio 0.8 L 03/21/23 05:50: WBC 5.3, RBC 3.51 L, Hgb 11.2 L, Hct 33.7 L, MCV 96.0 H, MCH 31.9, MCHC 33.2, RDW Std Deviation 50.0 H, RDW Coeff of Cinda 14.6, Plt Count 137 L, MPV 10.6, Immature Gran % (Auto) 0.200, Neut % (Auto) 68.7, Lymph % (Auto) 16.7 L, [place] % (Auto) 9.9, Eos % (Auto) 4.1, Baso % (Auto) 0.4, Absolute Neuts (auto) 3.7, Absolute Lymphs (auto) 0.89, Nucleated RBC % 0 Micro: Microbiology 03/20/23 21:00 Mucosa - Nose SARS-CoV-2, Influenza & RSV (PCR) - Final Imaging Radiology Impression Brain CT 02/02/24 18:39 IMPRESSION: No acute intracranial process. Electronically Signed: Pankaj Mckee MD at 19:31 EST , Chest X-Ray 03/20/23 19:22 IMPRESSION: 1. No significant change. 2. No new infiltrate seen. Electronically Signed: Pankaj Mckee MD at 19:33 EST , Active Medications Active Medications Active Medications: Current Medications Generic Name Dose Route Start Last Admin Trade Name Freq PRN Reason Stop Dose Admin Acetaminophen 650 mg 03/20/23 23:14 03/21/23 01:52 Acetaminophen 325 Mg Tablet PO 650 mg 4X/DAY PRN PRN Administration PAIN 1-10 Albuterol Sulfate 2.5 mg 03/20/23 23:14 Albuterol 2.5 Mg/3 Ml Vial.Neb. INHALATION Q6H PRN PRN SHORTNESS OF BREATH/WHEEZING Albuterol/Ipratropium 3 ml 03/21/23 00:00 03/21/23 06:57 Ipratropium/Albuterol Sulfate 3 Ml Ampul.Neb INHALATION 3 ml Q6HWA.RT ALEXUS Administration Artificial Tears 1 drp 03/20/23 23:14 Carboxymethylcellulose Sodium 1 Drp Drops OPHTHALMIC TID PRN PRN EYE DRYNESS Aspirin 81 mg 03/21/23 08:00 03/21/23 12:22 Aspirin E.C. 81 Mg Tablet PO 81 mg DAILYCM ALEXUS Administration Atorvastatin Calcium 80 mg 03/20/23 23:14 03/21/23 00:17 Atorvastatin Calcium 80 Mg Tablet PO 80 mg QHS ALEXUS Administration Budesonide 0.5 mg 03/21/23 06:00 03/21/23 06:57 Budesonide Respules 0.5 Mg/2 Ml Ampul.Neb. INHALATION 0.5 mg Q12H.RT ALEXUS Administration Carvedilol 25 mg 03/20/23 23:14 03/21/23 12:23 Carvedilol 25 Mg Tablet PO 25 mg BIDCM ALEXUS Administration Protocol Cholecalciferol 50 mcg 03/21/23 10:00 03/21/23 12:22 Cholecalciferol (Vit D3) 25 Mcg Tablet (1,000 Units) PO 50 mcg DAILY ALEXUS Administration Clopidogrel Bisulfate 75 mg 03/21/23 10:00 03/21/23 12:22 Clopidogrel Bisulfate 75 Mg Tablet PO 75 mg DAILY ALEXUS Administration Dextrose 0 gm 03/20/23 23:14 Dextrose 50%-Water 25 Gm/50 Ml Disp.Syrin IV X1 PRN HYPOGLYCEMIA Protocol Empagliflozin 25 mg 03/21/23 10:00 03/21/23 12:23 Empagliflozin 25 Mg Tablet PO 25 mg DAILY ALEXUS Administration Escitalopram Oxalate 10 mg 03/21/23 10:00 03/21/23 12:23 Escitalopram Oxalate 10 Mg Tablet PO 10 mg DAILY ALEXUS Administration Furosemide 40 mg 03/21/23 10:00 Furosemide 40 Mg Tablet PO DAILY [facility] Protocol Glucagon 1 mg 03/20/23 23:14 Glucagon 1 Mg/Ml Syringe IM X1 PRN HYPOGLYCEMIA Guaifenesin 10 ml 03/20/23 23:14 Guaifenesin 10 Ml Udc (200mg/10ml) PO TID PRN PRN CONGESTION Heparin Sodium (Porcine) 5,000 unit 03/20/23 23:14 03/21/23 04:36 Heparin Injection (Vial) 5,000 Unit/Ml Vial SC Not Given Q8 ALEXUS Sodium Chloride 250 mls @ 15 mls/hr 03/20/23 23:15 IV .[id number] PRN Additional IVPB Infusion Sodium Chloride 250 mls @ 15 mls/hr 03/20/23 23:15 IV .[id number] PRN Saline Flush Insulin Human Lispro 0 unit 03/21/23 07:00 03/21/23 06:56 Insulin Lispro 100 Unit/Ml Insuln.Pen SC Not Given TIDAC [facility] Protocol Insulin Human Regular 130 units 03/21/23 07:00 03/21/23 12:29 Insulin U-500 Units/Ml Pen SC 130 units BIDAC ALEXUS Administration Melatonin 3 mg 03/20/23 23:14 Melatonin 3 Mg Tablet PO QHS PRN PRN INSOMNIA Multivitamins/Minerals 1 tablet 03/21/23 08:00 03/21/23 12:22 Multivitamins,Ther W-Minerals Tablet PO 1 tablet DAILYCM ALEXUS Administration Ondansetron HCl 4 mg 03/20/23 23:14 Ondansetron 4 Mg/2 Ml Vial IV Q8H PRN PRN NAUSEA/VOMITING Pantoprazole Sodium 40 mg 03/20/23 23:14 03/21/23 12:21 Pantoprazole Sodium 40 Mg Tablet PO 40 mg BID ALEXUS Administration Ranolazine 500 mg 03/20/23 23:14 03/21/23 12:23 Ranolazine 500 Mg Tablet PO 500 mg Q12 ALEXUS Administration Senna/Docusate Sodium 2 tablet 03/20/23 23:14 Senna/Docusate Sodium 1 Tablet PO BID PRN PRN Constipation Sodium Chloride 10 - 40 ml 03/20/23 23:15 0.9% Saline Lock 10 Ml Syringe IV UD PRN SALINE FLUSH Spironolactone 25 mg 03/21/23 10:00 Spironolactone 25 Mg Tablet PO DAILY [facility] Protocol Tamsulosin HCl 0.4 mg 03/20/23 23:14 03/21/23 00:18 Tamsulosin Hcl 0.4 Mg Capsule PO 0.4 mg QHS ALEXUS Administration
[2023-03-21] MEDS: Insulin Lispro 100 UNIT/ML INSULN.PEN SC ×2 (13:02→17:34)
[2023-03-21] MEDS: Heparin Injection (Vial) 5,000 UNIT/ML VIAL 5000 UNIT SC (14:20)
[2023-03-21 17:44] LABS: Bedside Glucose 160 mg/dL (74-106)
[2023-03-22] VITALS (13 sets, daily range): BP systolic 120–136; BP diastolic 53–76; PULSE 56–67; RESP 16–20; TEMP 35.8–36.6; O2SAT 97–100
[2023-03-22] MEDS: Dextrose 50%-Water 25 GM/50 ML DISP.SYRIN IV ×2 (00:06→01:58)
[2023-03-22] MEDS: 0.9% Saline Lock 10 ML Syringe IV ×2 (00:07→01:57)
[2023-03-22 00:34] LABS: Bedside Glucose 47 mg/dL (74-106)
[2023-03-22 00:53] LABS: Bedside Glucose 151 mg/dL (74-106)
--- NOTE | 2023-03-22 01:09 | CPS ---
found pt with bipap mask off, pale, diaphoretic, slow to respond and confused. hit call light immediately for assistance from nursing. After situation was corrected, bipap mask re-applied and pt went back to sleep @ 1210am
[2023-03-22 02:20] LABS: Bedside Glucose 70 mg/dL (74-106)
[2023-03-22 02:40] LABS: Bedside Glucose 112 mg/dL (74-106)
[2023-03-22 04:03] LABS: Bedside Glucose 74 mg/dL (74-106)
[2023-03-22 05:39] LABS: Bedside Glucose 74 mg/dL (74-106)
[2023-03-22 06:42] LABS: Bedside Glucose 84 mg/dL (74-106)
[2023-03-22] MEDS: Ipratropium/Albuterol Sulfate 3 ML AMPUL.NEB INHALATION ×2 (07:10→19:58)
[2023-03-22] MEDS: Budesonide Respules 0.5 MG/2 ML AMPUL.NEB. INHALATION ×2 (07:10→19:58)
--- NOTE | 2023-03-22 07:55 | PN.HOSP_ITS ---
Subjective Subjective Denies complaints. Objective Data Objective Data Vital Signs: Vital Signs Temp Pulse Resp BP Pulse Ox O2 Del Method O2 Flow Rate 36.2 C L 60 16 136/76 H 98 Nasal Cannula 3 03/22/23 03:00 03/22/23 07:10 03/22/23 07:10 03/22/23 03:00 03/22/23 07:10 03/22/23 07:10 03/22/23 07:10 Oxygen Flow Rate (L/min) 3 Oxygen Delivery Method Nasal Cannula Weight: 108.7 kg Body Mass Index (BMI) 34.2 Intake & Output: Intake and Output for Last 24 Hours 03/20/23 03/21/23 03/22/23 23:59 23:59 23:59 Intake Total 2665 / 2665 220 / 220 Output Total 1900 / 1900 500 / 500 Balance 765 / 765 -280 / -280 Lab / Micro Data 03/21/23 05:50 03/21/23 05:40 Labs: Laboratory Results - last 24 hr 03/21/23 12:19: POC Glucose 179 H 03/21/23 17:23: POC Glucose 160 H 03/22/23 00:02: POC Glucose 47 L 03/22/23 00:33: POC Glucose 151 H 03/22/23 01:57: POC Glucose 70 L 03/22/23 02:23: POC Glucose 112 H 03/22/23 03:42: POC Glucose 74 03/22/23 05:18: POC Glucose 74 03/22/23 06:18: POC Glucose 84 Micro: Microbiology 03/20/23 21:00 Mucosa - Nose SARS-CoV-2, Influenza & RSV (PCR) - Final Physical Exam Const alert and no apparent distress Constitutional Narrative: Weak voice, but talking today. HEENT head/scalp atraumatic and moist oral mucous membranes Resp no retractions and no use of accessory muscles GI non-tender and non-distended Extremity normal to inspection and no clubbing, cyanosis or edema Neuro moves all extremities and no focal motor deficits Sensorium / Orientation: awake and alert Psych Psych Narrative: Flat affect Assessment & Plan Assessment/Plan (1) Inability to walk: (2) AMS (altered mental status): (3) Elevated serum creatinine: (4) Anemia: PLAN: Plan Change in mental status * Patient temporarily was nonverbal. Though this is not consistent per discussion with nursing and patient has presented here with similar complaints most recently last month. Concern per multiple nurses that he may be playing possum . * EEG performed. Results pending. * MRI will be on hold until it can be may compatible with his pacer. * As expressed by Dr. Holman in February that this may be psychosomatic. * Did discuss with nursing that we will need to hold potentiating medications, including narcotics. Debility * Consult PT/OT * Case management/social work consultation for assistance with discharge p rock Chest pain: * chronic. troponin series negative. No additional work up at this time. Chronic conditions: * Chronic hypoxic respiratory failure secondary to COPD/EKATERINA/lung nodule-Continue home BiPAP at 16/-Patient is on chronic oxygen at 4 L--> currently stable on this-Continue home inhalers-As needed albuterol-Continue home Mucinex-Repeat imaging for lung nodule pending in April 2023 * History of stroke-Continue aspirin-Continue Plavix * [id number] with very resistant diabetes as he is on U-500 insulin-Continue home insulin-Continue home Qluxatthb-JKG-Iczgxla/carb controlled diet * History of sick sinus syndrome-Status post pacemaker placement-Stable * GERD-continue home PPI * BPH-Continue home-Continue home Proscar * Depression-Continue home Celexa * Obesity BMI 34.9- DVT prophylaxis -Subcu Lovenox CODE STATUS -DNR CCA no intubation as verified on admission Charges/Coding Visit Charges Inpatient E&M: 83886 Subs Hosp L2
[2023-03-22] MEDS: Ranolazine 500 MG Tablet PO ×2 (09:04→21:40)
[2023-03-22] MEDS: Multivitamins,Ther W-Minerals Tablet 1 TABLET PO (09:04)
[2023-03-22] MEDS: Pantoprazole Sodium 40 MG Tablet PO ×2 (09:07→21:40)
[2023-03-22] MEDS: Empagliflozin 25 MG Tablet PO (09:08)
[2023-03-22] MEDS: Aspirin E.C. 81 MG Tablet PO (09:08)
[2023-03-22] MEDS: Cholecalciferol (VIT D3) 25 MCG TABLET (1,000 UNITS) 50 MCG PO (09:09)
[2023-03-22] MEDS: Clopidogrel Bisulfate 75 MG Tablet PO (09:09)
[2023-03-22] MEDS: Escitalopram Oxalate 10 MG Tablet PO (09:11)
[2023-03-22] MEDS: Carvedilol 25 MG Tablet PO ×2 (09:11→17:46)
[2023-03-22] MEDS: Insulin Lispro 100 UNIT/ML INSULN.PEN SC ×2 (11:54→17:47)
[2023-03-22] MEDS: 0.9% Normal Saline (250mL Bag) 250 ML 15 ML IV (11:54)
[2023-03-22] MEDS: Heparin Injection (Vial) 5,000 UNIT/ML VIAL 5000 UNIT SC ×2 (14:46→21:39)
[2023-03-22 16:51] LABS: Bedside Glucose 226 mg/dL (74-106)
[2023-03-22] MEDS: Insulin U-500 UNITS/ML PEN 130 UNITS SC (17:50)
[2023-03-22] MEDS: Tamsulosin HCl 0.4 MG Capsule 0.400000000000000022 MG PO (21:40)
[2023-03-22] MEDS: Atorvastatin Calcium 80 MG Tablet PO (21:40)
[2023-03-23] VITALS (11 sets, daily range): BP systolic 103–141; BP diastolic 61–92; PULSE 62–86; RESP 16–22; TEMP 36.3–36.6; O2SAT 94–100
[2023-03-23] MEDS: Heparin Injection (Vial) 5,000 UNIT/ML VIAL 5000 UNIT SC (05:26)
--- NOTE | 2023-03-23 06:00 | MRI_ITS ---
HISTORY: altered MS, question seizure. TECHNIQUE: Multiplanar and multisequence MR images of the brain were obtained before and after the intravenous administration of 23 cc Clariscan. 474 images. COMPARISON: CT 03/20/2023, MR 03/05/2023. FINDINGS: BRAIN PARENCHYMA: Multiple foci of increased T2 FLAIR signal in the bilateral cerebral white matter. No enhancing lesion in the brain parenchyma. No abnormal focus of restricted diffusion. No acute intracranial hemorrhage identified. CSF SPACES: Chronic mild volume loss. No significant midline shift or other mass effect.No extra-axial fluid collection. VASCULAR SYSTEM: Major intracranial flow voids are maintained. PARANASAL SINUSES AND MASTOID AIR CELLS: Mild fluid in the bilateral mastoid air cells. ORBITS: Symmetric contents. MRI/Brain W/WO Contrast IMPRESSION: No evidence for acute infarct or enhancing intracranial mass. Mild chronic involutional and white matter changes. Electronically Signed: Michelle Tomlinson MD at 13:41 EST ,
[2023-03-23 06:46] LABS: Bedside Glucose 94 mg/dL (74-106)
[2023-03-23] MEDS: Empagliflozin 25 MG Tablet PO (08:40)
[2023-03-23] MEDS: Aspirin E.C. 81 MG Tablet PO (08:40)
[2023-03-23] MEDS: Clopidogrel Bisulfate 75 MG Tablet PO (08:40)
[2023-03-23] MEDS: Carvedilol 25 MG Tablet PO (08:40)
[2023-03-23] MEDS: Multivitamins,Ther W-Minerals Tablet 1 TABLET PO (08:40)
[2023-03-23] MEDS: Ranolazine 500 MG Tablet PO (08:41)
[2023-03-23] MEDS: Pantoprazole Sodium 40 MG Tablet PO (08:41)
[2023-03-23] MEDS: Cholecalciferol (VIT D3) 25 MCG TABLET (1,000 UNITS) 50 MCG PO (08:41)
[2023-03-23] MEDS: Escitalopram Oxalate 10 MG Tablet PO (08:41)
[2023-03-23 09:03] LABS: Bedside Glucose 95 mg/dL (74-106)
--- NOTE | 2023-03-23 10:35 | PCM.PN.HOSP ---
Reason for Visit Reason for Visit: Diagnoses Anemia, unspecified (03/20/23) Difficulty in walking, not elsewhere classified (03/20/23) Altered mental status, unspecified (03/20/23) Other specified abnormal findings of blood chemistry (03/20/23) Subjective Subjective Patient is a 72-year-old admitted with altered mental status Objective Data Objective Data Vital Signs: Vital Signs Temp Pulse Resp BP Pulse Ox O2 Del Method O2 Flow Rate 97.8 F 74 17 141/68 H 100 Nasal Cannula 3 03/23/23 08:42 03/23/23 08:42 03/23/23 08:42 03/23/23 08:42 03/23/23 08:42 03/23/23 08:42 03/23/23 08:42 Oxygen Flow Rate (L/min) 3 Oxygen Delivery Method Nasal Cannula Weight: 108.7 kg Body Mass Index (BMI) 34.2 Intake & Output: Intake and Output for Last 24 Hours 03/21/23 03/22/23 03/23/23 23:59 23:59 23:59 Intake Total 2665 / 2665 1430 / 1430 470 / 470 Output Total 1900 / 1900 2350 / 2350 200 / 200 Balance 765 / 765 -920 / -920 270 / 270 Lab / Micro Data 03/21/23 05:50 03/21/23 05:40 Labs: Laboratory Results - last 24 hr 03/22/23 16:30: POC Glucose 226 H 03/23/23 06:23: POC Glucose 94 03/23/23 08:27: POC Glucose 95 Micro: Microbiology 03/20/23 21:00 Mucosa - Nose SARS-CoV-2, Influenza & RSV (PCR) - Final Physical Exam Narrative GENERAL: cooperative HEENT: Atraumatic; normocephalic EYES; Anicteric, Normal Conjunctiva NECK; supple, normal thyroid, RESPIRATORY: Diminished to auscultation CARDIOVASCULAR: Regular S1 S2, GI: soft, normoactive bowel sounds, : No Renal angle tenderness; EXTREMITIES: No edema, no clubbing, MUSCULOSKELETAL: no muscle wasting NEURO: Awake; no lateralizing signs. SKIN: No Rash PSYCH; Flat affect Assessment & Plan Assessment/Plan (1) Inability to walk: (2) AMS (altered mental status): (3) Elevated serum creatinine: (4) Anemia: PLAN: Plan Patient is a 72-year-old admitted with altered mental status 1. Altered mental status ? Suspected to be secondary to seizures. Patient underwent EEG. Seen by telemetry neuro recommended for patient to undergo MRI 2. Dyslipidemia -Patient is on statin therapy, continued at home dose 3. Chronic hypoxic respiratory failure ? Secondary to combination of COPD, obstructive sleep apnea patient is on oxygen 4 L at baseline 4. Obstructive sleep apnea ? BiPAP at night 5. 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 BPH with lower urinary obstructive symptoms - Patient treated with tamsulosin 7. Sick sinus syndrome ? Status post pacemaker placement 8. Diabetes mellitus type II -patient's oral hypoglycemics held. Placed on long acting insulin, Accu-Cheks a.c. and at bedtime and covered with sliding scale insulin 9. GERD ? On PPI 10. Class I obesity with BMI of 34.3 ? Complicating care weight loss advised 11. Depression ? Patient is on SSRI continue 12. DVT prophylaxis -Subcu Lovenox CODE STATUS -DNR CCA no intubation as verified on admission Charges/Coding Visit Charges Inpatient E&M: 36701 Subs Hosp L2
[2023-03-23] MEDS: Ipratropium/Albuterol Sulfate 3 ML AMPUL.NEB INHALATION (10:41)
[2023-03-23] MEDS: Budesonide Respules 0.5 MG/2 ML AMPUL.NEB. INHALATION (10:41)
[2023-03-23] MEDS: Insulin Lispro 100 UNIT/ML INSULN.PEN SC (13:54)
[2023-03-23 14:14] LABS: Bedside Glucose 163 mg/dL (74-106)
--- NOTE | 2023-03-23 15:24 | DS.PCM_ITS ---
Providers Date of Admission: 03/20/23 Date of Discharge: 03/23/23 Primary Care Physician: [facility] Consultations 03/20/23 23:14 neuro [Consult: Tele-Neurology] Routine Consulting Provider: [facility] Reason for Consult: altered MS EMERGENT Consult: No MD Notified: Yes Date Notified: 03/21/23 Time Notified: 06:19 Method of Notification: Answering Service Nursing Unit Staff Notify [facility] of Tele-Neurology Consult: Yes Reason For Visit: ALTERED MENTAL STATUS Diagnosis Discharge Diagnosis (1) Inability to walk: Status: Acute Code(s): R26.2 - Difficulty in walking, not elsewhere classified (2) AMS (altered mental status): Status: Acute Code(s): R41.82 - Altered mental status, unspecified (3) Elevated serum creatinine: Status: Acute Code(s): R79.89 - Other specified abnormal findings of blood chemistry (4) Anemia: Status: Acute Code(s): D64.9 - Anemia, unspecified Plan Patient is a 72-year-old admitted with altered mental status 1. Altered mental status ? Patient's symptoms resolved. No suspicion of seizures versus psychosomatic symptoms. Patient underwent EEG and MRI. MRI result was negative for acute CVA. Results of obtained discussed with patient's patient apparently has an appointment with his primary care physician on 03/24/2023 instructed to keep the appointment. also instructed to obtain results of patient diagnostic studies to be taking to patient's appointment 2. Dyslipidemia -Patient is on statin therapy, continued at home dose 3. Chronic hypoxic respiratory failure ? Secondary to combination of COPD, obstructive sleep apnea patient is on oxygen 4 L at baseline 4. Obstructive sleep apnea ? BiPAP at night 5. 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 BPH with lower urinary obstructive symptoms - Patient treated with tamsulosin 7. Sick sinus syndrome ? Status post pacemaker placement 8. Diabetes mellitus type II -patient's oral hypoglycemics held. Placed on long acting insulin, Accu-Cheks a.c. and at bedtime and covered with sliding scale insulin 9. GERD ? On PPI 10. Class I obesity with BMI of 34.3 ? Complicating care weight loss advised 11. Depression ? Patient is on SSRI continue 12. DVT prophylaxis -Subcu Lovenox CODE STATUS -DNR CCA no intubation as verified on admission Medications at Discharge Home Medications aspirin 81 mg tablet,delayed release 81 mg PO DAILY HEART HEALTH 06/11/18 atorvastatin 80 mg tablet 80 mg PO QHS CHOLESTEROL 06/11/18 escitalopram oxalate 10 mg tablet 10 mg PO DAILY DEPRESSION 06/11/18 finasteride 5 mg tablet 5 mg PO DAILY PROSTATE 06/11/18 insulin regular hum U-500 conc 500 unit/mL(3 mL) subcut pen (Humulin R U-500 (Conc) Insulin Kwikpen) 130 unit subcut BID DIABETES 06/11/18 nitroglycerin 0.4 mg sublingual tablet 0.4 mg sublingual Q5M PRN CHEST PAIN #30 TABLETS 07/22/18 pantoprazole 40 mg tablet,delayed release 40 mg PO BID GERD 05/18/20 carvedilol 25 mg tablet 25 mg PO BID BLOOD PRESSURE 06/22/20 ranolazine 500 mg tablet,extended release,12 hr 500 mg PO Q12H CHEST PAIN 06/22/20 tamsulosin 0.4 mg capsule 0.4 mg PO QHS PROSTATE 08/10/20 clopidogrel 75 mg tablet (Plavix) 75 mg PO DAILY BLOOD THINNER 01/07/21 albuterol sulfate 2.5 mg/3 mL (0.083 %) solution for nebulization 2.5 mg inhalation Q6H PRN SHORTNESS OF BREATH/WHEEZING 12/12/21 ketoconazole 2 % shampoo 1 applic topical DAILY DRY SCALP 12/12/21 magnesium oxide 420 mg tablet 420 mg PO BID SUPPLEMENT 12/12/21 multivitamin with minerals 1 tab PO DAILY SUPPLEMENT 12/12/21 spironolactone 25 mg tablet (Aldactone) 25 mg PO DAILY BLOOD PRESSURE 09/10/22 guaifenesin 600 mg tablet, extended release 12 hr 1,200 mg (2 x 600 mg) PO Q12H PRN COUGH/CONGESTION #120 tabs 11/17/22 acetaminophen 325 mg tablet (Tylenol) 650 mg PO 4X/DAY PRN PAIN 01/27/23 cyclobenzaprine 10 mg tablet 10 mg PO BID PRN MUSCLE SPASMS 01/27/23 furosemide 40 mg tablet 40 mg PO DAILY EDEMA #0 tabs 01/29/23 diazepam 2 mg tablet (Valium) 2 mg PO TID PRN MUSCLE SPASMS 5 days #15 tabs 02/16/23 budesonide 160 mcg-glycopyr 9 mcg-formot 4.8 mcg/actuation HFA inhaler (Breztri Aerosphere) 2 inh inhalation BID SHORTNESS OF BREATH 03/04/23 carboxymethylcellulose sodium 0.5 % eye drops 1 drp EACH EYE TID PRN EYE DRYNESS 03/04/23 cholecalciferol (vitamin D3) 50 mcg (2,000 unit) capsule (D3-2000) 100 mcg PO DAILY SUPPLEMENT 03/04/23 empagliflozin 25 mg tablet (Jardiance) 25 mg PO DAILY DIABETES 03/04/23 guaifenesin 100 mg/5 mL oral liquid 200 mg PO TID PRN CONGESTION 03/04/23 Hospital Course Summary of Care Provided Minutes Spent on Discharge: 35 Physical Exam Narrative GENERAL: cooperative HEENT: Atraumatic; normocephalic EYES; Anicteric, Normal Conjunctiva NECK; supple, normal thyroid, RESPIRATORY: Diminished to auscultation CARDIOVASCULAR: Regular S1 S2, GI: soft, normoactive bowel sounds, : No Renal angle tenderness; EXTREMITIES: No edema, no clubbing, MUSCULOSKELETAL: no muscle wasting NEURO: Awake; no lateralizing signs. SKIN: No Rash PSYCH; Flat affect Weight / BMI Weight Weight: 108.7 kg Body Mass Index (BMI) 34.2 ABG / Lab / Microbiology Data 03/21/23 05:50 03/21/23 05:40 Laboratory: Laboratory Results - last 24 hr 03/22/23 16:30: POC Glucose 226 H 03/23/23 06:23: POC Glucose 94 03/23/23 08:27: POC Glucose 95 03/23/23 13:53: POC Glucose 163 H Microbiology: Microbiology 03/20/23 21:00 Mucosa - Nose SARS-CoV-2, Influenza & RSV (PCR) - Final Radiography Diagnostic Testing: Radiology Impression Brain MRI 03/23/23 06:00 IMPRESSION: No evidence for acute infarct or enhancing intracranial mass. Mild chronic involutional and white matter changes. Electronically Signed: Michelle Tomlinson MD at 13:41 EST , D/C Instructions Discharge Diet: 1800 Calorie Control Diet Discharge Activity: Return to Normal Activity Call your doctor if you observe: Fever of 101 or Higher, Shortness of breath, Fainting spells and Chest pain Meaningful Use Info Meaningful Use Diagnoses (Choose all that apply): None applicable Discharge Plan Admission Admit Date/Time: 03/20/23 21:38 Attending Provider: Pancho Galo Primary Care Provider: [facility],[place] Consulting Providers: Rubi Sosa; Nisha Dong; Xuan Skinner; Meek Benjamin; Kanu Michael; DEVIN BEAL; Georgia Alberts; Ilsa Crisostomo; Abdirahman Gomes; Renata Adkins; Regulo Tabor; Jocelynn Castaneda; Gretchen Marvin; Ha Hoffmann; Carol Beasley; Varinder Borrero; Gabriel Downey; Jace Miller; Landy Lindsey; Ronda Baca; Edwin Carrillo; Nini Yu; Patrice Kowalski; Jamia Short; Dale Zendejas; Varsha Short; Cirilo Styles Discharge Orders/Prescriptions Prescriptions: Continued clopidogrel [Plavix] 75 mg tablet 75 mg PO DAILY atorvastatin 80 MG tablet 80 mg PO QHS aspirin 81 MG tablet 81 mg PO DAILY finasteride 5 MG tablet 5 mg PO DAILY escitalopram oxalate 10 MG tablet 10 mg PO DAILY Humulin R U-500 (Conc) Kwikpen 500 UNIT/ML insulin pen 130 unit subcut BID nitroglycerin 0.4 MG tablet, sublingual 0.4 mg sublingual Q5M PRN (Reason: CHEST PAIN ) Qty: 30 0RF pantoprazole 40 MG tablet 40 mg PO BID carvedilol 25 MG tablet 25 mg PO BID ranolazine 500 mg Tablet Extended Release 12 Hr 500 mg PO Q12H tamsulosin 0.4 MG capsule 0.4 mg PO QHS magnesium oxide 420 mg Tablet 420 mg PO BID ketoconazole 2 % Shampoo 1 applic TOPICAL DAILY albuterol sulfate 2.5 mg /3 mL (0.083 %) Solution For Nebulization 2.5 mg INHALATION Q6H PRN (Reason: SHORTNESS OF BREATH/WHEEZING ) multivitamin with minerals Tablet 1 tab PO DAILY spironolactone [Aldactone] 25 mg tablet 25 mg PO DAILY acetaminophen [Tylenol] 325 MG tablet 650 mg PO 4X/DAY PRN (Reason: PAIN ) cyclobenzaprine 10 mg tablet 10 mg PO BID PRN (Reason: MUSCLE SPASMS) furosemide 40 mg Tablet 40 mg PO DAILY Qty: 0 0RF diazepam [Valium] 2 mg tablet 2 mg PO TID PRN (Reason: MUSCLE SPASMS) 5 Days Qty: 15 0RF Jardiance 25 mg tablet 25 mg PO DAILY carboxymethylcellulose sodium 0.5 % drops 1 drp EACH EYE TID PRN (Reason: EYE DRYNESS ) guaifenesin 100 mg/5 mL liquid 200 mg PO TID PRN (Reason: CONGESTION ) cholecalciferol (vitamin D3) [D3-2000] 50 mcg (2,000 unit) capsule 100 mcg PO DAILY Breztri Aerosphere 160-9-4.8 mcg/actuation HFA aerosol inhaler 2 inh inhalation BID Patient Comments: PT STATES THEY HAVE THE INHALER BUT IT DOES NOT WORK WELL FOR THEM Rx Instructions: RINSE MOUTH AFTER USE guaifenesin 600 mg tablet extended release 12hr 1,200 mg PO Q12H PRN (Reason: COUGH/CONGESTION ) Qty: 120 11RF [facility] - In 1 Day Disposition Disposition (needs filled in before D/C Order can be placed): Home, Self Care Charges/Coding Visit Charges Inpatient E&M: 59930 Disch Hosp >30min
--- NOTE | 2023-03-23 15:46 | CASEMGMT ---
RN CM into pt room, pt reports he walked around the block today. Pt present in room, pt and deny need for HHC or any other homegoing services. [facility] Spoke with pt nurse who states pt is on home oxygen. Pt denies further needs at this time.
--- NOTE | 2023-03-23 16:02 | PHA.DC.MR.R ---
Pharmacy [place] Med Reconciliation Pharmacy Service has performed discharge medication reconciliation for this patient. The patient's discharge medication list was reviewed for discrepancies and discrepancies were resolved. Medications at Discharge Home Medications aspirin 81 mg tablet,delayed release 81 mg PO DAILY HEART HEALTH 06/11/18 atorvastatin 80 mg tablet 80 mg PO QHS CHOLESTEROL 06/11/18 escitalopram oxalate 10 mg tablet 10 mg PO DAILY DEPRESSION 06/11/18 finasteride 5 mg tablet 5 mg PO DAILY PROSTATE 06/11/18 insulin regular hum U-500 conc 500 unit/mL(3 mL) subcut pen (Humulin R U-500 (Conc) Insulin Kwikpen) 130 unit subcut BID DIABETES 06/11/18 nitroglycerin 0.4 mg sublingual tablet 0.4 mg sublingual Q5M PRN CHEST PAIN #30 TABLETS 07/22/18 pantoprazole 40 mg tablet,delayed release 40 mg PO BID GERD 05/18/20 carvedilol 25 mg tablet 25 mg PO BID BLOOD PRESSURE 06/22/20 ranolazine 500 mg tablet,extended release,12 hr 500 mg PO Q12H CHEST PAIN 06/22/20 tamsulosin 0.4 mg capsule 0.4 mg PO QHS PROSTATE 08/10/20 clopidogrel 75 mg tablet (Plavix) 75 mg PO DAILY BLOOD THINNER 01/07/21 albuterol sulfate 2.5 mg/3 mL (0.083 %) solution for nebulization 2.5 mg inhalation Q6H PRN SHORTNESS OF BREATH/WHEEZING 12/12/21 ketoconazole 2 % shampoo 1 applic topical DAILY DRY SCALP 12/12/21 magnesium oxide 420 mg tablet 420 mg PO BID SUPPLEMENT 12/12/21 multivitamin with minerals 1 tab PO DAILY SUPPLEMENT 12/12/21 spironolactone 25 mg tablet (Aldactone) 25 mg PO DAILY BLOOD PRESSURE 09/10/22 guaifenesin 600 mg tablet, extended release 12 hr 1,200 mg (2 x 600 mg) PO Q12H PRN COUGH/CONGESTION #120 tabs 11/17/22 acetaminophen 325 mg tablet (Tylenol) 650 mg PO 4X/DAY PRN PAIN 01/27/23 cyclobenzaprine 10 mg tablet 10 mg PO BID PRN MUSCLE SPASMS 01/27/23 furosemide 40 mg tablet 40 mg PO DAILY EDEMA #0 tabs 01/29/23 diazepam 2 mg tablet (Valium) 2 mg PO TID PRN MUSCLE SPASMS 5 days #15 tabs 02/16/23 budesonide 160 mcg-glycopyr 9 mcg-formot 4.8 mcg/actuation HFA inhaler (Breztri Aerosphere) 2 inh inhalation BID SHORTNESS OF BREATH 03/04/23 carboxymethylcellulose sodium 0.5 % eye drops 1 drp EACH EYE TID PRN EYE DRYNESS 03/04/23 cholecalciferol (vitamin D3) 50 mcg (2,000 unit) capsule (D3-2000) 100 mcg PO DAILY SUPPLEMENT 03/04/23 empagliflozin 25 mg tablet (Jardiance) 25 mg PO DAILY DIABETES 03/04/23 guaifenesin 100 mg/5 mL oral liquid 200 mg PO TID PRN CONGESTION 03/04/23
== END 2023-03-23 16:46 | disposition home or self-care (01) | DRG 948 ==
LOC: ED 20:56 → PCU 21:48
PROVIDERS: Nurse Practitioner; Admitting Provider Internal Medicine; Emergency Provider Emergency Medicine; Visit Provider Internal Medicine
DX: R41.82 Altered mental status, unspecified (principal); J96.11 Chronic respiratory failure with hypoxia; N13.8 Other obstructive and reflux uropathy; I49.5 Sick sinus syndrome; E11.9 Type 2 diabetes mellitus without complications; D64.9 Anemia, unspecified; I11.0 Hypertensive heart disease with heart failure; J44.9 Chronic obstructive pulmonary disease, unspecified; I50.9 Heart failure, unspecified; I25.119 Atherosclerotic heart disease of native coronary artery with unspecified angina pectoris; Z79.4 Long term (current) use of insulin; F32.A Depression, unspecified; E78.5 Hyperlipidemia, unspecified; K21.9 Gastro-esophageal reflux disease without esophagitis; R26.2 Difficulty in walking, not elsewhere classified; G47.33 Obstructive sleep apnea (adult) (pediatric); I25.2 Old myocardial infarction; E66.9 Obesity, unspecified; Z68.34 Body mass index [BMI] 34.0-34.9, adult; Z95.0 Presence of cardiac pacemaker; Z79.02 Long term (current) use of antithrombotics/antiplatelets; Z95.5 Presence of coronary angioplasty implant and graft; Z79.84 Long term (current) use of oral hypoglycemic drugs; Z79.82 Long term (current) use of aspirin; Z87.891 Personal history of nicotine dependence; Z86.73 Personal history of transient ischemic attack (TIA), and cerebral infarction without residual deficits; Z99.81 Dependence on supplemental oxygen; Z79.899 Other long term (current) drug therapy; Z79.51 Long term (current) use of inhaled steroids; Z90.49 Acquired absence of other specified parts of digestive tract; Z96.652 Presence of left artificial knee joint; R79.89 Other specified abnormal findings of blood chemistry; R91.1 Solitary pulmonary nodule; Z95.1 Presence of aortocoronary bypass graft; R07.9 Chest pain, unspecified; N40.1 Benign prostatic hyperplasia with lower urinary tract symptoms
CPT/HCPCS: 36415; 70450; 70553; 71045; 80053; 81001; 82728; 82962; 83540; 83550; 83735; 83880; 84100; 84484; 85025; 87631; 93005; 94002; 94003; 94640; 94668; 95819; 97162; 97166; 97530; 97535; 99284; A9575; J7050; J7120; A4216; J2405

== ENCOUNTER 2023-04-01 21:42 | Emergency (ER) | payer OTHER, SELFPAY ==
[2023-04-01 21:42] VITALS: BP 127/65; PULSE 60; RESP 20; TEMP 36.2; O2SAT 95
[2023-04-01 22:00] VITALS: BMI 35.3
--- NOTE | 2023-04-01 22:24 | EKG12_ITS ---
Test Reason : DYSRHYTHMIA Blood Pressure : / mmHG Vent. Rate : 063 BPM Atrial Rate : 053 BPM P-R Int : 000 ms QRS Dur : 208 ms QT Int : 542 ms P-R-T Axes : 000 -55 119 degrees QTc Int : 554 ms Ventricular-paced rhythm Abnormal ECG AV paced and V paced tracking P waves Confirmed by Flako Sheikh [id number]), rewrite editor NADINE FERRER ([id number]) on 04/02/2023 9:51:05 AM Referred By: Confirmed By:Flako Sheikh
--- NOTE | 2023-04-01 22:24 | CT_ITS ---
STUDY: CT BRAIN WITHOUT CONTRAST REASON FOR EXAM: Male, 72 years old. Syncope RADIATION DOSAGE (If Supplied By Facility): CTDIvol = ( 44.99 ) mGy, DLP = ( 829.85 ) mGycm TECHNIQUE: Transaxial CT imaging of the brain was performed without administration of intravenous contrast material. Individualized dose optimization techniques were used for this CT. COMPARISON: March 20, 2023 FINDINGS: Normal soft tissue structures. Normal calvarium. There is mild cerebral atrophy with widening of the extra-axial spaces and ventricular dilatation. There are areas of decreased attenuation within the white matter tracts of the supratentorial brain, consistent with microvascular disease changes. Normal basal ganglia and thalami. Normal brainstem. Normal cerebellum. There is no intracranial hemorrhage. There are no findings of an acute ischemic infarction. Normal visualized paranasal sinuses. CT/Brain/Head without Contrast IMPRESSION: Chronic involutional changes of the brain. Electronically Signed: Shai Mcclendon MD at 23:44 EST ,
[2023-04-01 22:35] LABS: Absolute Lymphocyte Count 0.69 X10^3/uL (0.83-4.51); Absolute Neutrophil Count 4.3 X10^3/uL (2.0-7.7); Basophil# 0.01 X10^3/uL; Basophil% 0.2 % (0-1); Eosinophil# 0.38 X10^3/uL; Eosinophils% 6.5 % (0-5); Hematocrit 32.3 % (40-54); Hemoglobin 10.4 g/dL (13.0-16.5); Lymphocyte # 0.69 X10^3/ul (0.83-4.51); Lymphocyte % 11.8 % (19-41); Mean Corp Hgb Conc 32.2 g/dL (32-36); Mean Corpuscular Hgb 31.2 pg (27.0-32.0); Mean Platelet Vol. 10.2 fl (6.2-12.0); Monocyte# 0.51 X10^3/uL; Monocyte% 8.7 % (0-10); NRBC Flagged by Analyzer 0 % (0-5); Neutrophil # 4.25 X10^3/uL (2.7-7.7); Neutrophil % 72.6 % (47-70); Platelet Count 208 K/mm3 (150-450); RBC Distribution Width CV 14.3 % (11.6-14.6); Red Blood Count 3.33 M/mm3 (4.6-6.2); White Blood Count 5.9 K/mm3 (4.4-11.0)
--- NOTE | 2023-04-01 22:48 | RAD_ITS ---
STUDY: X-RAY CHEST REASON FOR EXAM: Male, 72 years old. Syncope TECHNIQUE: Single AP portable view of the chest. COMPARISON: March 20, 2023 FINDINGS: Dual chamber pacemaker device on the left is stable. There are monitoring devices. The lungs are clear and expanded. There is no demonstrated pleural abnormality. Sternal cerclage wires are present from a prior sternotomy. Normal mediastinum and cata. Normal visualized pulmonary arteries. Normal visualized aortic arch and descending thoracic aorta. There are degenerative changes of the spine. There is healed right clavicle fracture. There are left rib fractures status post ORIF with fixation plates and screws. There is no demonstrated abnormality of the visualized soft tissue structures of the upper abdomen. RAD/Chest 1 View (Portable) IMPRESSION: Degenerative and postoperative changes, as described above. No demonstrated acute cardiopulmonary process. Electronically Signed: Shai Mcclendon MD at 23:36 EST ,
[2023-04-01 23:08] LABS: Anion Gap 6 (5-15); BUN 14 mg/dL (7-18); BUN/Creat Ratio 12.8 RATIO (10-20); Calcium,Total 8.6 mg/dL (8.5-10.1); Chloride 105 mmol/L (98-107); Creatinine, Serum 1.09 mg/dL (0.70-1.30); EST Glomerular Filtration Rate 71 mL/min (>60); Est Glom Filt Rate - Afr Amer 85 mL/min (>60); Estimated Creatinine Clearance 76.63 ml/min; Glucose 78 mg/dL (74-106); Potassium 3.3 mmol/L (3.5-5.1); Sodium Level 142 mmol/L (136-145); Thyroid Stim Hormone (TSH) 3.88 uIU/mL (0.358-3.74); Troponin-I HS 25 pg/mL (3.0-78.0)
[2023-04-01 23:11] LABS: Bacteria 0 SEEN /hpf (None Seen); Mucous, Urine 0 SEEN /hpf (<or=2+); Red Blood Cells-Urine 0 SEEN /hpf (0-5); Squamous Epithelial Cells - UA 0 SEEN /hpf (0-5)
[2023-04-01 23:13] LABS: Color, Urine Yellow (Yellow); Glucose, Dipstick 1000 mg/dl (Normal); Ketone-Dipstick 5 mg/dl (Negative); Leukocyte Esterase-Dipstick 25 /ul (Negative); Nitrite-Dipstick Negative (Negative); Occult Blood-Urine Negative /ul (Negative); Protein-Dipstick 30 mg/dl (Negative); Urine Bilirubin Dipstick Negative (Negative); Urine Clarity Clear (Clear); Urine Urobilinogen 1 mg/dl (Normal)
[2023-04-01 23:13] LABS: BNP,B-Type NATRIURETIC PEPTIDE 159.8 pg/mL (0-100)
[2023-04-01 23:20] LABS: White Blood Cells 0 SEEN /hpf (0-5)
[2023-04-01 23:42] VITALS: BP 133/60; PULSE 602; RESP 24; O2SAT 100
--- NOTE | 2023-04-02 00:32 | EX.ED.DYSGE1 ---
HPI History of Present Illness Chief Complaint: Syncope Informant: patient and spouse/S.O. Narrative Narrative: Patient is a 72-year-old male with past medical history of sick sinus syndrome requiring pacemaker congestive heart failure chronic respiratory failure/COPD on oxygen and type 2 diabetes. He states that over the last 1 to 2 days he has had bouts of passing out . He states that things just go black . However he cannot communicate if he is having near syncope or losing vision and is still conscious or if he is completely unconscious and he denies feeling any palpitations prior to the events. He states he just overall feels weak . He states that he does not know what is causing his symptoms and he reports that he has been taking his medications as directed and therefore comes in for evaluation [facility] Medical History (Updated 04/02/23 @ 06:[address] 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 BiPAP (biphasic positive airway pressure) dependence CAD (coronary artery disease) Chest pain Chest pain Chronic hyperglycemia Chronic respiratory failure Congestive heart failure (CHF) Conversion reaction COPD (chronic obstructive pulmonary disease) Diabetes DM type 2 (diabetes mellitus, type 2) DNR (do not resuscitate) DNR (do not resuscitate) discussion Dysarthria Essential (primary) hypertension Former smoker Heart failure Hemiparesis, left History of fractured rib History of TIAs Hyperlipidemia Left-sided weakness Myocardial infarct Obesity On home oxygen therapy EKATERINA (obstructive sleep apnea) EKATERINA (obstructive sleep apnea) Pacemaker Pacemaker battery depletion Pulmonary embolism Sick sinus syndrome Stroke/cerebrovascular accident Syncope Wears hearing aid in both ears Home Medications aspirin 81 mg tablet,delayed release 81 mg PO DAILY HEART HEALTH 06/11/18 [History Last Taken 03/03/23] atorvastatin 80 mg tablet 80 mg PO QHS CHOLESTEROL 06/11/18 [History Last Taken 03/03/23] escitalopram oxalate 10 mg tablet 10 mg PO DAILY DEPRESSION 06/11/18 [History Last Taken 03/03/23] finasteride 5 mg tablet 5 mg PO DAILY PROSTATE 06/11/18 [History Last Taken 03/03/23] insulin regular hum U-500 conc 500 unit/mL(3 mL) subcut pen (Humulin R U-500 (Conc) Insulin Kwikpen) 130 unit subcut BID DIABETES 06/11/18 [History Last Taken 03/03/23] nitroglycerin 0.4 mg sublingual tablet 0.4 mg sublingual Q5M PRN CHEST PAIN #30 TABLETS 07/22/18 [Rx Last Taken 01/17/20] pantoprazole 40 mg tablet,delayed release 40 mg PO BID GERD 05/18/20 [History Last Taken 03/03/23] carvedilol 25 mg tablet 25 mg PO BID BLOOD PRESSURE 06/22/20 [History Last Taken 03/03/23] ranolazine 500 mg tablet,extended release,12 hr 500 mg PO Q12H CHEST PAIN 06/22/20 [History Last Taken 03/03/23] tamsulosin 0.4 mg capsule 0.4 mg PO QHS PROSTATE 08/10/20 [History Last Taken 03/03/23] clopidogrel 75 mg tablet (Plavix) 75 mg PO DAILY BLOOD THINNER 01/07/21 [History Last Taken 03/03/23] albuterol sulfate 2.5 mg/3 mL (0.083 %) solution for nebulization 2.5 mg inhalation Q6H PRN SHORTNESS OF BREATH/WHEEZING 12/12/21 [History Last Taken 03/03/23] ketoconazole 2 % shampoo 1 applic topical DAILY DRY SCALP 12/12/21 [History Last Taken 03/03/23] magnesium oxide 420 mg tablet 420 mg PO BID SUPPLEMENT 12/12/21 [History Last Taken 03/03/23] multivitamin with minerals 1 tab PO DAILY SUPPLEMENT 12/12/21 [History Last Taken 03/03/23] spironolactone 25 mg tablet (Aldactone) 25 mg PO DAILY BLOOD PRESSURE 09/10/22 [History Last Taken 03/03/23] guaifenesin 600 mg tablet, extended release 12 hr 1,200 mg (2 x 600 mg) PO Q12H PRN COUGH/CONGESTION #120 tabs 11/17/22 [Rx Last Taken 03/03/23] acetaminophen 325 mg tablet (Tylenol) 650 mg PO 4X/DAY PRN PAIN 01/27/23 [History Last Taken 03/03/23] cyclobenzaprine 10 mg tablet 10 mg PO BID PRN MUSCLE SPASMS 01/27/23 [History Last Taken 03/03/23] furosemide 40 mg tablet 40 mg PO DAILY EDEMA #0 tabs 01/29/23 [Rx Last Taken 03/03/23] diazepam 2 mg tablet (Valium) 2 mg PO TID PRN MUSCLE SPASMS 5 days #15 tabs 02/16/23 [Rx Last Taken 03/04/23] budesonide 160 mcg-glycopyr 9 mcg-formot 4.8 mcg/actuation HFA inhaler (Breztri Aerosphere) 2 inh inhalation BID SHORTNESS OF BREATH 03/04/23 [History Last Taken 03/03/23] carboxymethylcellulose sodium 0.5 % eye drops 1 drp EACH EYE TID PRN EYE DRYNESS 03/04/23 [History Last Taken 03/03/23] cholecalciferol (vitamin D3) 50 mcg (2,000 unit) capsule (D3-2000) 100 mcg PO DAILY SUPPLEMENT 03/04/23 [History Last Taken 03/03/23] empagliflozin 25 mg tablet (Jardiance) 25 mg PO DAILY DIABETES 03/04/23 [History Last Taken 03/03/23] guaifenesin 100 mg/5 mL oral liquid 200 mg PO TID PRN CONGESTION 03/04/23 [History Last Taken 03/03/23] Allergy/AdvReac Type Severity Reaction Status Date / Time ezetimibe Allergy Unknown Verified 04/01/23 21:45 Fish Containing Products Allergy Unknown Verified 04/01/23 21:45 glyburide Allergy Unknown Verified 04/01/23 21:45 isosorbide Allergy PT UNSURE Verified 04/01/23 21:45 OF REACTION lisinopril Allergy Unknown Verified 04/01/23 21:45 metformin Allergy Nausea Verified 04/01/23 21:45 metoprolol Allergy Unknown Verified 04/01/23 21:45 simvastatin Allergy Unknown Verified 04/01/23 21:45 tramadol Allergy Other Verified 04/01/23 21:45 iron AdvReac Mild Vomiting Verified 04/01/23 21:45 gabapentin AdvReac Other Verified 04/01/23 21:45 Family History Father No problems noted. Surgical History H/O coronary artery bypass surgery History of cholecystectomy History of coronary artery stent placement History of knee replacement procedure of left knee History of permanent cardiac pacemaker placement (01/14/21) Social History household members: spouse Smoking Status: Former smoker details: Unknown substance use type: does not use ROS ROS ED Constitutional Constitutional ED: Denies chills or fever(s) Eyes Eyes: Reports change in vision ENT ENT ED: Denies rhinorrhea or sore throat Cardiovascular Cardiovascular: Reports chest pain; Denies palpitations or racing heartbeat Respiratory/Chest Respiratory/Chest: Reports dyspnea; Denies cough Gastrointestinal Gastrointestinal: Denies abdominal pain, diarrhea, nausea or vomiting Genitourinary Genitourinary ED: Denies dysuria Musculoskeletal Musculoskeletal: Denies back pain, myalgias or neck pain Integumentary Denies rash Neurologic Neurologic: Reports other Details: Positive syncope ; Denies headache(s) Hematologic/Lymphatic Hematologic/Lymphatic: Reports easy bleeding and easy bruising EXAM Physical Exam Const Vital Signs: 04/01/23 21:42 04/01/23 22:00 04/01/23 23:42 Temperature 97.1 F L Temperature Source Temporal Pulse Rate 60 602 H Respiratory Rate 20 H 24 H Respiratory Effort Short of Breath Respiratory Pattern Tachypnea Blood Pressure 127/65 H 133/60 H Blood Pressure Mean 85 84 Pulse Ox 95 100 Oxygen Delivery Method Nasal Cannula Oxygen Flow Rate (L/min) 4 04/02/23 01:11 Temperature 97.3 F L Temperature Source Pulse Rate 60 Respiratory Rate 18 Respiratory Effort Respiratory Pattern Blood Pressure 136/72 H Blood Pressure Mean 93 Pulse Ox 96 Oxygen Delivery Method Oxygen Flow Rate (L/min) Positive well nourished and well developed General Appearance ED: well developed and pallor HEENT Reports dry mucous membranes HEENT Narrative: Mucous membranes are dry and tacky No tongue or lip swelling no oral lesions no airway edema or compromise No signs of infection noted in the posterior pharynx Mouth ED: Yes dry mucous membranes Mouth: dry mucous membranes Eyes PERRL and EOMs intact bilaterally General Eye ED: Negative for scleral icterus Neck supple and no JVD Neck Narrative: No nuchal rigidity or meningeal signs noted Chest Wall Chest Narrative: No bony deformity or crepitance of the chest wall Resp normal respiratory effort and clear to auscultation bilaterally Resp Narrative: Breath sounds are diminished throughout but overall clear to auscultation without nasal flaring retractions tachypnea or accessory muscle use Cardio regular rate and regular rhythm Rate: other Other Details: Radial and carotid pulses are equal and symmetric GI normal to inspection, nondistended, normoactive bowel sounds, non-tender, non-distended and no masses GI Narrative: No voluntary guarding or rigidity or pulsatile mass Auscultation: normoactive bowel sounds Palpation: soft Extremity Extremity Narrative: +1 pitting edema to the bilateral lower extremities that is equal and symmetric Neuro oriented x3 and CN's II-XII intact bilaterally Neuro Narrative: Cranial nerves II through XII are grossly intact there are no focal neurologic deficits No pronator drift no dysmetria no truncal ataxia NIH stroke scale score of 0 Sensorium / Orientation: alert Psych Psych Narrative: Patient has a flat affect Skin no rashes or lesions noted Skin Narrative: Skin turgor is slightly increased General Skin Exam: pallor; Negative for jaundice MDM MDM MDM Narrative Medical decision making narrative: Patient presented to the ER with stable vitals and he reported passing out but could not communicate exactly what was happening or what he was feeling. Patient has complex medical issues there is concern that this could be a cardiac dysrhythmia versus pacemaker malfunction versus acute blood loss anemia versus acute kidney injury versus electrolyte derangement versus congestive heart failure exacerbation versus neurologic event such as TIA. Secondary to this basic labs were obtained as well as a CT scan of the head and chest x-ray. Lab work revealed no clinically significant findings with patient being near her at his baseline for multiple values. Head CT revealed no spontaneous bleed or mass and chest x-ray reviewed no signs of fluid overload or pneumonia. The patient was ambulated and was able to walk with a steady gait using his walker without bouts of syncope. We discussed because of his complex medical condition and his report of recurrent episodes of this that we could discuss the case with the hospitalist for potential admission. The patient states that since his workup is negative and he is able to ambulate without passing out he would prefer to go home and follow-up on an outpatient basis. The patient is awake alert and oriented with stable vitals and an overall negative workup and therefore will be discharged at this time as requested History & Record Review Discussion w/independent historian: Patient and Family Lab Data Attestation: I reviewed the patient's lab results. Labs: Laboratory Results - last 24 hr 04/01/23 04/01/23 22:12 23:08 WBC 5.9 RBC 3.33 L Hgb 10.4 L Hct 32.3 L MCV 97.0 H MCH 31.2 MCHC 32.2 RDW Std Deviation 50.0 H RDW Coeff of Cinda 14.3 Plt Count 208 MPV 10.2 Immature Gran % (Auto) 0.200 Neut % (Auto) 72.6 H Lymph % (Auto) 11.8 L Dyer % (Auto) 8.7 Eos % (Auto) 6.5 H Baso % (Auto) 0.2 Absolute Neuts (auto) 4.3 Absolute Lymphs (auto) 0.69 L Nucleated RBC % 0 Sodium 142 Potassium 3.3 L Chloride 105 Carbon Dioxide 31.0 Anion Gap 6 BUN 14 Creatinine 1.09 Estim Creat Clear Calc 76.63 Est GFR (MDRD) Af Amer 85 Est GFR (MDRD) Non-Af 71 BUN/Creatinine Ratio 12.8 Glucose 78 Calcium 8.6 Magnesium 2.0 Troponin I High Sens 25 B-Natriuretic Peptide 159.8 H TSH 3.88 H Urine Color Yellow Urine Clarity Clear Urine pH 6.0 Ur Specific [place] 1.020 Urine Protein 30 H Urine Glucose (UA) 1000 H Urine Ketones 5 H Urine Occult Blood Negative Urine Nitrite Negative Urine Bilirubin Negative Urine Urobilinogen 1 H Ur Leukocyte Esterase 25 H Urine RBC 0 SEEN Urine WBC 0 SEEN Ur Squamous Epith Cells 0 SEEN Urine Bacteria 0 SEEN Urine Mucus 0 SEEN Radiography Diagnostic Testing: Clinical Impression(s) from Imaging Studies Brain CT 04/01/23 22:24 IMPRESSION: Chronic involutional changes of the brain. Electronically Signed: Shai Mcclendon MD at 23:44 EST Reading Location ID and State: [facility] / [place] , Service support , Chest X-Ray 04/01/23 22:48 IMPRESSION: Degenerative and postoperative changes, as described above. No demonstrated acute cardiopulmonary process. Electronically Signed: Shai Mcclendon MD at 23:36 EST , Chest x-ray as interpreted by the emergency medicine physician reveals no acute infiltrate pneumothorax or pleural effusion Discharge Plan Triage Chief Complaint: Syncope ED Provider: Richy Clifford Dx/Rx/DC Orders Clinical Impression: Syncope, Congestive heart failure (CHF), COPD (chronic obstructive pulmonary disease), Pacemaker Instructions: What Is Syncope, Dizziness Fainting Causes Prescriptions: No Action clopidogrel [Plavix] 75 mg tablet 75 mg PO DAILY atorvastatin 80 MG tablet 80 mg PO QHS aspirin 81 MG tablet 81 mg PO DAILY finasteride 5 MG tablet 5 mg PO DAILY escitalopram oxalate 10 MG tablet 10 mg PO DAILY Humulin R U-500 (Conc) Kwikpen 500 UNIT/ML insulin pen 130 unit subcut BID nitroglycerin 0.4 MG tablet, sublingual 0.4 mg sublingual Q5M PRN (Reason: CHEST PAIN ) Qty: 30 0RF pantoprazole 40 MG tablet 40 mg PO BID carvedilol 25 MG tablet 25 mg PO BID ranolazine 500 mg Tablet Extended Release 12 Hr 500 mg PO Q12H tamsulosin 0.4 MG capsule 0.4 mg PO QHS magnesium oxide 420 mg Tablet 420 mg PO BID ketoconazole 2 % Shampoo 1 applic TOPICAL DAILY albuterol sulfate 2.5 mg /3 mL (0.083 %) Solution For Nebulization 2.5 mg INHALATION Q6H PRN (Reason: SHORTNESS OF BREATH/WHEEZING ) multivitamin with minerals Tablet 1 tab PO DAILY spironolactone [Aldactone] 25 mg tablet 25 mg PO DAILY acetaminophen [Tylenol] 325 MG tablet 650 mg PO 4X/DAY PRN (Reason: PAIN ) cyclobenzaprine 10 mg tablet 10 mg PO BID PRN (Reason: MUSCLE SPASMS) furosemide 40 mg Tablet 40 mg PO DAILY Qty: 0 0RF diazepam [Valium] 2 mg tablet 2 mg PO TID PRN (Reason: MUSCLE SPASMS) 5 Days Qty: 15 0RF Jardiance 25 mg tablet 25 mg PO DAILY carboxymethylcellulose sodium 0.5 % drops 1 drp EACH EYE TID PRN (Reason: EYE DRYNESS ) guaifenesin 100 mg/5 mL liquid 200 mg PO TID PRN (Reason: CONGESTION ) cholecalciferol (vitamin D3) [D3-2000] 50 mcg (2,000 unit) capsule 100 mcg PO DAILY Breztri Aerosphere 160-9-4.8 mcg/actuation HFA aerosol inhaler 2 inh inhalation BID Patient Comments: PT STATES THEY HAVE THE INHALER BUT IT DOES NOT WORK WELL FOR THEM Rx Instructions: RINSE MOUTH AFTER USE guaifenesin 600 mg tablet extended release 12hr 1,200 mg PO Q12H PRN (Reason: COUGH/CONGESTION ) Qty: 120 11RF [facility] [Primary Care Provider] - Activity Restrictions/Additional Instructions: Please continue all of your home medications as directed by your doctor and follow-up with your family doctor and/or stitchdowns toe former for repeat evaluation. Return to the ER should you have any further concerns Disposition Disposition: Home, Self Care Discharge Date/Time: 04/02/23 01:20
[2023-04-02 01:11] VITALS: BP 136/72; PULSE 60; RESP 18; TEMP 36.3; O2SAT 96
[2023-04-04 09:08] LABS: KEPPRA (LEVETIRACETAM) 13.6 ug/mL (10.0-40.0)
== END 2023-04-02 01:20 | disposition home or self-care (01) ==
PROVIDERS: Emergency Provider Emergency Medicine; Visit Provider Emergency Medicine
DX: R55 Syncope and collapse (principal); J44.9 Chronic obstructive pulmonary disease, unspecified; I11.0 Hypertensive heart disease with heart failure; I50.9 Heart failure, unspecified; E11.9 Type 2 diabetes mellitus without complications; Z87.891 Personal history of nicotine dependence; Z95.0 Presence of cardiac pacemaker; I25.10 Atherosclerotic heart disease of native coronary artery without angina pectoris; Z99.89 Dependence on other enabling machines and devices; E78.5 Hyperlipidemia, unspecified; G47.33 Obstructive sleep apnea (adult) (pediatric); Z86.73 Personal history of transient ischemic attack (TIA), and cerebral infarction without residual deficits; Z79.82 Long term (current) use of aspirin; R23.3 Spontaneous ecchymoses; R07.9 Chest pain, unspecified; R06.00 Dyspnea, unspecified
CPT/HCPCS: 70450; 71045; 80048; 80177; 81001; 83735; 83880; 84443; 84484; 85025; 87631; 93005; 99283

== ENCOUNTER 2023-04-09 21:38 | Emergency (ER) | payer OTHER, SELFPAY ==
[2023-04-09 21:39] VITALS: BP 119/68; PULSE 59; RESP 19; TEMP 36.7; O2SAT 95; O2SAT 96; BMI 34.5
--- NOTE | 2023-04-09 21:41 | EKG12_ITS ---
Test Reason : PAIN Blood Pressure : / mmHG Vent. Rate : 060 BPM Atrial Rate : 062 BPM P-R Int : 196 ms QRS Dur : 212 ms QT Int : 584 ms P-R-T Axes : 000 -61 122 degrees QTc Int : 584 ms AV dual-paced rhythm with occasional Premature ventricular complexes Abnormal ECG Confirmed by PADILLA GUALLPA, CALI ([id number]), proposal editor NADINE FERRER ([id number]) on 04/10/2023 1:08:04 PM Referred By: Confirmed By:CALI CAUSEY MD
--- NOTE | 2023-04-09 21:42 | ED.VIS.CHEST ---
HPI <Dr. Yadiel Guzman MD - Last Filed: 04/14/23 09:15> History of Present Illness Chief Complaint: Chest Pain Detail of Chief Complaint: Chest pain Informant: patient and EMS Onset/Context/Timing Onset: Hours (A couple hours ago) Activity at onset: sudden and rest Timing: Continuous Quality: Positive for Pain Location: Substernal Current Severity: 8/10 Maximum Severity: 9/10 Worsened By: Nothing Relieved By: Nothing Associated Symptoms: Positive for Dyspnea; Negative for Nausea, Vomiting, Diaphoresis, Cough, Fever, Lightheadedness, Acid Reflux or Palpitations Narrative Narrative: Patient is a 72-year-old male who has history of sick sinus syndrome with pacemaker placement, coronary artery disease, congestive heart failure, chronic hypoxemia on 4 L of oxygen by nasal cannula. Patient has end-stage COPD. Patient is difficult to understand. He nodded no to fever or chills. He nodded no to runny nose congestion postnasal drainage. Per old records and personal experience patient has been known to report symptoms that he does not have or embellish. Prior Similar Symptoms: - (Congestive heart failure) Recent Illness/Hospitalization: No CVD Risk Factors: Positive for Diabetes and Hypercholesterolemia PE Risk Factors: Negative for Recent Travel/Surgery, Recent Immobilization, Prior DVT or PE, Cancer or OCP + Smoking + >/=35 TAD Risk Factors: Positive for Hypertension; Negative for Marfan's Syndrome or Family History PFS <Dr. Yadiel Guzman MD - Last Filed: 04/14/23 09:15> [facility] Medical History Abnormal EKG Anemia Atherosclerotic heart disease [place] coronary artery w/angina pectoris BiPAP (biphasic positive airway pressure) dependence CAD (coronary artery disease) Chest pain Chest pain Chronic hyperglycemia Chronic respiratory failure Congestive heart failure (CHF) Conversion reaction COPD (chronic obstructive pulmonary disease) Diabetes DM type 2 (diabetes mellitus, type 2) DNR (do not resuscitate) DNR (do not resuscitate) discussion Dysarthria Essential (primary) hypertension Former smoker Heart failure Hemiparesis, left History of fractured rib History of TIAs Hyperlipidemia Left-sided weakness Myocardial infarct Obesity On home oxygen therapy EKATERINA (obstructive sleep apnea) EKATERINA (obstructive sleep apnea) Pacemaker Pacemaker battery depletion Pulmonary embolism Sick sinus syndrome Stroke/cerebrovascular accident Syncope Wears hearing aid in both ears Home Medications aspirin 81 mg tablet,delayed release 81 mg PO DAILY HEART HEALTH 06/11/18 [History Last Taken 03/03/23] atorvastatin 80 mg tablet 80 mg PO QHS CHOLESTEROL 06/11/18 [History Last Taken 03/03/23] escitalopram oxalate 10 mg tablet 10 mg PO DAILY DEPRESSION 06/11/18 [History Last Taken 03/03/23] finasteride 5 mg tablet 5 mg PO DAILY PROSTATE 06/11/18 [History Last Taken 03/03/23] insulin regular hum U-500 conc 500 unit/mL(3 mL) subcut pen (Humulin R U-500 (Conc) Insulin Kwikpen) 130 unit subcut BID DIABETES 06/11/18 [History Last Taken 03/03/23] nitroglycerin 0.4 mg sublingual tablet 0.4 mg sublingual Q5M PRN CHEST PAIN #30 TABLETS 07/22/18 [Rx Last Taken 01/17/20] pantoprazole 40 mg tablet,delayed release 40 mg PO BID GERD 05/18/20 [History Last Taken 03/03/23] carvedilol 25 mg tablet 25 mg PO BID BLOOD PRESSURE 06/22/20 [History Last Taken 03/03/23] ranolazine 500 mg tablet,extended release,12 hr 500 mg PO Q12H CHEST PAIN 06/22/20 [History Last Taken 03/03/23] tamsulosin 0.4 mg capsule 0.4 mg PO QHS PROSTATE 08/10/20 [History Last Taken 03/03/23] clopidogrel 75 mg tablet (Plavix) 75 mg PO DAILY BLOOD THINNER 01/07/21 [History Last Taken 03/03/23] albuterol sulfate 2.5 mg/3 mL (0.083 %) solution for nebulization 2.5 mg inhalation Q6H PRN SHORTNESS OF BREATH/WHEEZING 12/12/21 [History Last Taken 03/03/23] ketoconazole 2 % shampoo 1 applic topical DAILY DRY SCALP 12/12/21 [History Last Taken 03/03/23] magnesium oxide 420 mg tablet 420 mg PO BID SUPPLEMENT 12/12/21 [History Last Taken 03/03/23] multivitamin with minerals 1 tab PO DAILY SUPPLEMENT 12/12/21 [History Last Taken 03/03/23] spironolactone 25 mg tablet (Aldactone) 25 mg PO DAILY BLOOD PRESSURE 09/10/22 [History Last Taken 03/03/23] guaifenesin 600 mg tablet, extended release 12 hr 1,200 mg (2 x 600 mg) PO Q12H PRN COUGH/CONGESTION #120 tabs 11/17/22 [Rx Last Taken 03/03/23] acetaminophen 325 mg tablet (Tylenol) 650 mg PO 4X/DAY PRN PAIN 01/27/23 [History Last Taken 03/03/23] cyclobenzaprine 10 mg tablet 10 mg PO BID PRN MUSCLE SPASMS 01/27/23 [History Last Taken 03/03/23] furosemide 40 mg tablet 40 mg PO DAILY EDEMA #0 tabs 01/29/23 [Rx Last Taken 03/03/23] diazepam 2 mg tablet (Valium) 2 mg PO TID PRN MUSCLE SPASMS 5 days #15 tabs 02/16/23 [Rx Last Taken 03/04/23] budesonide 160 mcg-glycopyr 9 mcg-formot 4.8 mcg/actuation HFA inhaler (Breztri Aerosphere) 2 inh inhalation BID SHORTNESS OF BREATH 03/04/23 [History Last Taken 03/03/23] carboxymethylcellulose sodium 0.5 % eye drops 1 drp EACH EYE TID PRN EYE DRYNESS 03/04/23 [History Last Taken 03/03/23] cholecalciferol (vitamin D3) 50 mcg (2,000 unit) capsule (D3-2000) 100 mcg PO DAILY SUPPLEMENT 03/04/23 [History Last Taken 03/03/23] empagliflozin 25 mg tablet (Jardiance) 25 mg PO DAILY DIABETES 03/04/23 [History Last Taken 03/03/23] guaifenesin 100 mg/5 mL oral liquid 200 mg PO TID PRN CONGESTION 03/04/23 [History Last Taken 03/03/23] Allergy/AdvReac Type Severity Reaction Status Date / Time ezetimibe Allergy Unknown Verified 04/09/23 21:39 Fish Containing Products Allergy Unknown Verified 04/09/23 21:39 glyburide Allergy Unknown Verified 04/09/23 21:39 isosorbide Allergy PT UNSURE Verified 04/09/23 21:39 OF REACTION lisinopril Allergy Unknown Verified 04/09/23 21:39 metformin Allergy Nausea Verified 04/09/23 21:39 metoprolol Allergy Unknown Verified 04/09/23 21:39 simvastatin Allergy Unknown Verified 04/09/23 21:39 tramadol Allergy Other Verified 04/09/23 21:39 iron AdvReac Mild Vomiting Verified 04/09/23 21:39 gabapentin AdvReac Other Verified 04/09/23 21:39 Family History Father No problems noted. Surgical History H/O coronary artery bypass surgery History of cholecystectomy History of coronary artery stent placement History of knee replacement procedure of left knee History of permanent cardiac pacemaker placement (01/14/21) Social History household members: spouse Smoking Status: Former smoker details: Unknown substance use type: does not use ROS <Dr. Yadiel Guzman MD - Last Filed: 04/14/23 09:15> ROS ED Constitutional Constitutional ED: Denies chills, fever(s), subjective, sweats or weight loss Eyes Eyes: Reports none ENT ENT ED: Denies rhinorrhea or sore throat Cardiovascular Cardiovascular: Reports as per HPI; Denies orthopnea or paroxysmal nocturnal dyspnea Respiratory/Chest Respiratory/Chest: Reports dyspnea; Denies cough, dyspnea on exertion, orthopnea or paroxysmal nocturnal dyspnea Gastrointestinal Gastrointestinal: Denies abdominal pain, diarrhea, melena, nausea or vomiting Genitourinary Genitourinary ED: Denies dysuria, hematuria or urinary frequency Musculoskeletal Musculoskeletal: Denies arthralgias, back pain or myalgias Integumentary Denies rash Neurologic Neurologic: Denies headache(s) or weakness Endocrine Endocrinology: Denies cold intolerance or heat intolerance Hematologic/Lymphatic Hematologic/Lymphatic: Denies easy bleeding or easy bruising EXAM <Dr. Yadiel Guzman MD - Last Filed: 04/14/23 09:15> Physical Exam Const Vital Signs: 04/09/23 21:39 04/09/23 21:39 04/09/23 21:47 Temperature 98.1 F Temperature Source Temporal Pulse Rate 59 L Respiratory Rate 19 H Respiratory Effort Normal Non-Labored Blood Pressure 119/68 Blood Pressure Mean 85 Pulse Ox 96 Oxygen Delivery Method Nasal Cannula Nasal Cannula Oxygen Flow Rate (L/min) 4 4 Positive well nourished, well developed and obese General Appearance ED: well developed, NAD and pallor Nutritional Appearance: obese HEENT Reports moist mucous membranes normocephalic and atraumatic Eyes PERRL and EOMs intact bilaterally General Eye ED: Negative for pale conjunctiva or scleral icterus Neck no lymphadenopathy, supple and no JVD Chest Wall palpation of chest normal; Negative for inspection of chest normal Chest Narrative: Median sternotomy scar noted. Resp normal respiratory effort and clear to auscultation bilaterally Cardio regular rate, regular rhythm, S1 normal heart sound, S2 normal heart sound and no murmurs GI normal to inspection, nondistended, normoactive bowel sounds, soft to palpation, non-tender, non-distended and no masses; Negative for hepatosplenomegaly Back/Spine no CVA tenderness Extremity Extremity Narrative: Mild pitting edema, 2 mm Neuro oriented x3, CN's II-XII intact bilaterally and no sensory deficits noted Sensorium / Orientation: awake and alert Psych Mood & Affect: depressed Skin no rashes or lesions noted and no wounds General Skin Exam: pallor; Negative for jaundice <Dr. Shai Hassan MD - Last Filed: 04/10/23 00:55> Physical Exam Const Vital Signs: 04/09/23 21:39 04/09/23 21:39 04/09/23 21:47 Temperature 98.1 F Temperature Source Temporal Pulse Rate 59 L Respiratory Rate 19 H Respiratory Effort Normal Non-Labored Blood Pressure 119/68 Blood Pressure Mean 85 Pulse Ox 96 Oxygen Delivery Method Nasal Cannula Nasal Cannula Oxygen Flow Rate (L/min) 4 4 MDM <Dr. Yadiel Guzman MD - Last Filed: 04/14/23 09:15> [facility] Narrative Medical decision making narrative: Differential diagnosis is cardiac versus noncardiac and noncardiac may include GERD, pulmonary disease, peptic ulcer disease or pain of unknown etiology. Also need to entertain possibility of patient embellishing his symptoms. Workup included EKG, chest x-ray and appropriate blood work. Patient did receive aspirin and route and reason it was not repeated. Furthermore he received nitro with essentially no effect. Lab Data Attestation: I reviewed the patient's lab results. Lab results narrative: CBC reveals macrocytic anemia. Hemoglobin is down approximately 0.5 from baseline. This is within lab error basic metabolic panel is unremarkable. First troponin is 24 and normal. This is patient's baseline. Labs: Laboratory Results - last 24 hr 04/09/23 04/10/23 04/10/23 22:15 00:10 00:13 WBC 6.0 RBC 3.23 L Hgb 9.9 L Hct 31.2 L MCV 96.6 H MCH 30.7 MCHC 31.7 L RDW Std Deviation 49.7 H RDW Coeff of Cinda 14.2 Plt Count 203 MPV 9.4 Immature Gran % (Auto) 0.500 Neut % (Auto) 71.0 H Lymph % (Auto) 15.0 L [place] % (Auto) 7.5 Eos % (Auto) 5.7 H Baso % (Auto) 0.3 Absolute Neuts (auto) 4.3 Absolute Lymphs (auto) 0.90 Nucleated RBC % 0 Sodium 141 Potassium 3.3 L Chloride 108 H Carbon Dioxide 31.0 Anion Gap 2 L BUN 20 H Creatinine 1.02 Estim Creat Clear Calc 81.04 Est GFR (MDRD) Af Amer 92 Est GFR (MDRD) Non-Af 76 BUN/Creatinine Ratio 19.6 Glucose 59 L Calcium 8.5 Troponin I High Sens 24 29 POC Glucose 66 L Radiography Chest X-Ray - ED: 1 View, Read by ED Physician (Interpreted by me at 2203. Chronic changes. Film is rotated compared to comparison. There is no infiltrate or effusion. There is no evidence of pneumothorax. Because the film is rotated the left heart border is somewhat obscured. Hardware noted due to prior rib fractures on the left.), Normal and No Acute Disease Diagnostic Testing: Clinical Impression(s) from Imaging Studies Chest X-Ray 04/09/23 21:50 IMPRESSION: Cardiomegaly and nonspecific bilateral perihilar interstitial thickening more pronounced on the left with possible right lower lobe pneumonia... Electronically Signed: Zeb Segura MD at 22:05 EST , EKG Initial EKG: Attestation: I personally reviewed and interpreted this EKG as follows: Interpretation: Paced (Ventricular paced rhythm rate of 60. MI interval is 196 ms. QRS duration 212 ms. QT duration 584 ms. [place] to left.) Treatment and Re-Evaluation :: Night physician was made aware of the patient. Plan is discharge home with delta troponin is normal. <Dr. Shai Hassan MD - Last Filed: 04/10/23 00:55> [facility] Lab Data Labs: Laboratory Results - last 24 hr 04/09/23 04/10/23 04/10/23 22:15 00:10 00:13 WBC 6.0 RBC 3.23 L Hgb 9.9 L Hct 31.2 L MCV 96.6 H MCH 30.7 MCHC 31.7 L RDW Std Deviation 49.7 H RDW Coeff of Cinda 14.2 Plt Count 203 MPV 9.4 Immature Gran % (Auto) 0.500 Neut % (Auto) 71.0 H Lymph % (Auto) 15.0 L [place] % (Auto) 7.5 Eos % (Auto) 5.7 H Baso % (Auto) 0.3 Absolute Neuts (auto) 4.3 Absolute Lymphs (auto) 0.90 Nucleated RBC % 0 Sodium 141 Potassium 3.3 L Chloride 108 H Carbon Dioxide 31.0 Anion Gap 2 L BUN 20 H Creatinine 1.02 Estim Creat Clear Calc 81.04 Est GFR (MDRD) Af Amer 92 Est GFR (MDRD) Non-Af 76 BUN/Creatinine Ratio 19.6 Glucose 59 L Calcium 8.5 Troponin I High Sens 24 29 POC Glucose 66 L Radiography Diagnostic Testing: Clinical Impression(s) from Imaging Studies Chest X-Ray 04/09/23 21:50 IMPRESSION: Cardiomegaly and nonspecific bilateral perihilar interstitial thickening more pronounced on the left with possible right lower lobe pneumonia... Electronically Signed: Zeb Segura MD at 22:05 EST , Treatment and Re-Evaluation Comments:: Patient checked out to me. The second troponin measurement returned at 29, essentially unchanged from the initial measurement of 24. Patient sleeping but easily arousable. He was mildly hypoglycemic in the 60s, he ate some peanut butter and crackers and drink some orange juice, he is still alert and arousable and nurses will continue feeding him until his blood sugar has stabilized, but he is otherwise well-appearing and stable with normal vital signs. Does not appear to be having acute coronary syndrome and will be stable for discharge home once his blood sugars are relatively stable. Discharge Plan Triage Chief Complaint: Chest Pain ED Provider: Yadiel Guzman Dx/Rx/DC Orders Clinical Impression: Chest pain, COPD (chronic obstructive pulmonary disease), Chronic hypoxemic respiratory failure, History of CAD (coronary artery disease), Congestive heart failure (CHF), Pacemaker Prescriptions: No Action clopidogrel [Plavix] 75 mg tablet 75 mg PO DAILY atorvastatin 80 MG tablet 80 mg PO QHS aspirin 81 MG tablet 81 mg PO DAILY finasteride 5 MG tablet 5 mg PO DAILY escitalopram oxalate 10 MG tablet 10 mg PO DAILY Humulin R U-500 (Conc) Kwikpen 500 UNIT/ML insulin pen 130 unit subcut BID nitroglycerin 0.4 MG tablet, sublingual 0.4 mg sublingual Q5M PRN (Reason: CHEST PAIN ) Qty: 30 0RF pantoprazole 40 MG tablet 40 mg PO BID carvedilol 25 MG tablet 25 mg PO BID ranolazine 500 mg Tablet Extended Release 12 Hr 500 mg PO Q12H tamsulosin 0.4 MG capsule 0.4 mg PO QHS magnesium oxide 420 mg Tablet 420 mg PO BID ketoconazole 2 % Shampoo 1 applic TOPICAL DAILY albuterol sulfate 2.5 mg /3 mL (0.083 %) Solution For Nebulization 2.5 mg INHALATION Q6H PRN (Reason: SHORTNESS OF BREATH/WHEEZING ) multivitamin with minerals Tablet 1 tab PO DAILY spironolactone [Aldactone] 25 mg tablet 25 mg PO DAILY acetaminophen [Tylenol] 325 MG tablet 650 mg PO 4X/DAY PRN (Reason: PAIN ) cyclobenzaprine 10 mg tablet 10 mg PO BID PRN (Reason: MUSCLE SPASMS) furosemide 40 mg Tablet 40 mg PO DAILY Qty: 0 0RF diazepam [Valium] 2 mg tablet 2 mg PO TID PRN (Reason: MUSCLE SPASMS) 5 Days Qty: 15 0RF Jardiance 25 mg tablet 25 mg PO DAILY carboxymethylcellulose sodium 0.5 % drops 1 drp EACH EYE TID PRN (Reason: EYE DRYNESS ) guaifenesin 100 mg/5 mL liquid 200 mg PO TID PRN (Reason: CONGESTION ) cholecalciferol (vitamin D3) [D3-2000] 50 mcg (2,000 unit) capsule 100 mcg PO DAILY Breztri Aerosphere 160-9-4.8 mcg/actuation HFA aerosol inhaler 2 inh inhalation BID Patient Comments: PT STATES THEY HAVE THE INHALER BUT IT DOES NOT WORK WELL FOR THEM Rx Instructions: RINSE MOUTH AFTER USE guaifenesin 600 mg tablet extended release 12hr 1,200 mg PO Q12H PRN (Reason: COUGH/CONGESTION ) Qty: 120 11RF [facility] [facility] [facility] [Primary Care Provider] - Disposition Disposition: Home, Self Care Discharge Date/Time: 04/10/23 01:13
--- NOTE | 2023-04-09 21:50 | RAD_ITS ---
STUDY: X-RAY CHEST REASON FOR EXAM: Male, 72 years old. chest pain TECHNIQUE: AP portable COMPARISON: Report 14 2023 FINDINGS: Nonspecific bilateral perihilar interstitial thickening more pronounced on the left. There is focal reticulonodular interstitial thickening in the right lower lobe with diffuse increased density which is new finding since prior exam possibly representing coexisting pneumonia There is no demonstrated pleural abnormality. Postop change status post median sternotomy Heart is enlarged.. Normal mediastinum and cata. Normal visualized pulmonary arteries. Normal visualized aortic arch and descending thoracic aorta. Pacer noted on the left with electrodes in satisfactory position Normal visualized thoracic spine. Old healed right clavicle fracture. Posterior surgical changes status post open reduction internal fixation of multiple left rib fractures with indwelling orthopedic hardware There is no demonstrated abnormality of the visualized soft tissue structures of the upper abdomen. RAD/Chest 1 View (Portable) IMPRESSION: Cardiomegaly and nonspecific bilateral perihilar interstitial thickening more pronounced on the left with possible right lower lobe pneumonia... Electronically Signed: Zeb Segura MD at 22:05 EST Reading Location ID and State: [facility] / [place] Tel , Service support ,
[2023-04-09 22:21] LABS: Absolute Neutrophil Count 4.3 X10^3/uL (2.0-7.7); Basophil# 0.02 X10^3/uL; Basophil% 0.3 % (0-1); Eosinophil# 0.34 X10^3/uL; Eosinophils% 5.7 % (0-5); Hematocrit 31.2 % (40-54); Hemoglobin 9.9 g/dL (13.0-16.5); Mean Corp Hgb Conc 31.7 g/dL (32-36); Mean Corpuscular Hgb 30.7 pg (27.0-32.0); Mean Corpuscular Volume 96.6 fL (80-94); Mean Platelet Vol. 9.4 fl (6.2-12.0); Monocyte# 0.45 X10^3/uL; Monocyte% 7.5 % (0-10); NRBC Flagged by Analyzer 0 % (0-5); Neutrophil # 4.27 X10^3/uL (2.7-7.7); Platelet Count 203 K/mm3 (150-450); RBC Distribution Width CV 14.2 % (11.6-14.6); RBC Distribution Width SD 49.7 fl (35.1-43.9); Red Blood Count 3.23 M/mm3 (4.6-6.2)
[2023-04-09 22:44] LABS: Anion Gap 2 (5-15); BUN 20 mg/dL (7-18); BUN/Creat Ratio 19.6 RATIO (10-20); Calcium,Total 8.5 mg/dL (8.5-10.1); Chloride 108 mmol/L (98-107); Creatinine, Serum 1.02 mg/dL (0.70-1.30); EST Glomerular Filtration Rate 76 mL/min (>60); Est Glom Filt Rate - Afr Amer 92 mL/min (>60); Estimated Creatinine Clearance 81.04 ml/min; Glucose 59 mg/dL (74-106); Potassium 3.3 mmol/L (3.5-5.1); Sodium Level 141 mmol/L (136-145); Troponin-I HS (w/2H Reflex) 24 pg/mL (3.0-78.0)
[2023-04-09] MEDS: Acetaminophen 325 MG Tablet 650 MG PO (23:19)
[2023-04-10 00:19] LABS: Reflex Troponin-HS? (from REC) Y
[2023-04-10 00:33] LABS: Bedside Glucose 66 mg/dL (74-106)
[2023-04-10 00:41] LABS: Troponin-I HS 29 pg/mL (3.0-78.0)
[2023-04-10 01:11] VITALS: BP 130/69; PULSE 62; RESP 16; TEMP 36.7; O2SAT 98
== END 2023-04-10 01:13 | disposition home or self-care (01) ==
PROVIDERS: Emergency Provider Emergency Medicine; Visit Provider Emergency Medicine
DX: R07.9 Chest pain, unspecified (principal); J44.9 Chronic obstructive pulmonary disease, unspecified; I11.0 Hypertensive heart disease with heart failure; I50.9 Heart failure, unspecified; J96.11 Chronic respiratory failure with hypoxia; E11.9 Type 2 diabetes mellitus without complications; E78.00 Pure hypercholesterolemia, unspecified; I25.10 Atherosclerotic heart disease of native coronary artery without angina pectoris; Z87.891 Personal history of nicotine dependence; Z95.0 Presence of cardiac pacemaker; E66.9 Obesity, unspecified; Z95.1 Presence of aortocoronary bypass graft; Z90.49 Acquired absence of other specified parts of digestive tract; Z95.5 Presence of coronary angioplasty implant and graft; Z86.73 Personal history of transient ischemic attack (TIA), and cerebral infarction without residual deficits; G47.33 Obstructive sleep apnea (adult) (pediatric)
CPT/HCPCS: 71045; 80048; 82962; 84484; 85025; 93005; 99285; A4216

== ENCOUNTER 2023-06-07 09:37 | Emergency (ER) | payer OTHER, SELFPAY ==
[2023-06-07] VITALS (8 sets, daily range): BP systolic 137–162; BP diastolic 60–88; PULSE 60–88; RESP 16–24; TEMP 36.3–36.9; O2SAT 98–100; BMI 36.6
--- NOTE | 2023-06-07 09:57 | EKG12_ITS ---
Test Reason : SOB Blood Pressure : / mmHG Vent. Rate : 063 BPM Atrial Rate : 059 BPM P-R Int : 166 ms QRS Dur : 142 ms QT Int : 508 ms P-R-T Axes : 000 203 101 degrees QTc Int : 519 ms AV dual-paced rhythm with occasional Premature ventricular complexes Biventricular pacemaker detected Abnormal ECG Confirmed by Flako Sheikh ([id number]), publishing editor KENDALL ROCHE ([id number]) on 06/08/2023 9:59:46 AM Referred By: HUY Confirmed By:Flako Sheikh
--- NOTE | 2023-06-07 09:58 | EDS_ITS ---
HPI History of Present Illness Chief Complaint: Shortness of Breath Informant: patient Narrative Narrative: 72-year-old male states he has been gradually getting more short of breath, more so than usual, over the past 4 days or so. 5 days ago he was discharged from [facility] after having an AICD placed. He and states that he had some type of cardiac event leading to this. He had a pacemaker before now it is an AICD. seems to think that his legs are newly edematous despite him taking his daily Lasix 40 mg which still makes him urinate. Does not think they were edematous before that. The patient has no idea if they were not. He has had his left arm in a sling ever since he had the AICD placed. He has orthopnea but admits that is not new. He used to be on 2 L of oxygen at home and it was moved up to 4 L about 2 months ago. He states he does his usual scheduled COPD breathing treatments which have not been helping in the last several days. He denies any cough, fevers or chills, or chest discomfort. [facility] Medical History Abnormal EKG Anemia Atherosclerotic heart disease [place] coronary artery w/angina pectoris BiPAP (biphasic positive airway pressure) dependence CAD (coronary artery disease) Chest pain Chest pain Chronic hyperglycemia Chronic respiratory failure Congestive heart failure (CHF) Conversion reaction COPD (chronic obstructive pulmonary disease) Diabetes DM type 2 (diabetes mellitus, type 2) DNR (do not resuscitate) DNR (do not resuscitate) discussion Dysarthria Essential (primary) hypertension Former smoker Heart failure Hemiparesis, left History of fractured rib History of TIAs Hyperlipidemia Left-sided weakness Myocardial infarct Obesity On home oxygen therapy EKATERINA (obstructive sleep apnea) EKATERINA (obstructive sleep apnea) Pacemaker Pacemaker battery depletion Pulmonary embolism Sick sinus syndrome Stroke/cerebrovascular accident Syncope Wears hearing aid in both ears Home Medications aspirin 81 mg tablet,delayed release 81 mg PO DAILY HEART HEALTH 06/11/18 [History Last Taken 03/03/23] atorvastatin 80 mg tablet 80 mg PO QHS CHOLESTEROL 06/11/18 [History Last Taken 03/03/23] escitalopram oxalate 10 mg tablet 10 mg PO DAILY DEPRESSION 06/11/18 [History Last Taken 03/03/23] finasteride 5 mg tablet 5 mg PO DAILY PROSTATE 06/11/18 [History Last Taken 03/03/23] nitroglycerin 0.4 mg sublingual tablet 0.4 mg sublingual Q5M PRN CHEST PAIN #30 TABLETS 07/22/18 [Rx Last Taken 01/17/20] pantoprazole 40 mg tablet,delayed release 40 mg PO BID GERD 05/18/20 [History Last Taken 03/03/23] carvedilol 25 mg tablet 25 mg PO BID BLOOD PRESSURE 06/22/20 [History Last Taken 03/03/23] ranolazine 500 mg tablet,extended release,12 hr 500 mg PO Q12H CHEST PAIN 06/22/20 [History Last Taken 03/03/23] tamsulosin 0.4 mg capsule 0.4 mg PO QHS PROSTATE 08/10/20 [History Last Taken 03/03/23] clopidogrel 75 mg tablet (Plavix) 75 mg PO DAILY BLOOD THINNER 01/07/21 [History Last Taken 03/03/23] albuterol sulfate 2.5 mg/3 mL (0.083 %) solution for nebulization 2.5 mg inhalation Q6H PRN SHORTNESS OF BREATH/WHEEZING 12/12/21 [History Last Taken 03/03/23] ketoconazole 2 % shampoo 1 applic topical DAILY DRY SCALP 12/12/21 [History Last Taken 03/03/23] magnesium oxide 420 mg tablet 420 mg PO BID SUPPLEMENT 12/12/21 [History Last Taken 03/03/23] multivitamin with minerals 1 tab PO DAILY SUPPLEMENT 12/12/21 [History Last Taken 03/03/23] spironolactone 25 mg tablet (Aldactone) 25 mg PO DAILY BLOOD PRESSURE 09/10/22 [History Last Taken 03/03/23] guaifenesin 600 mg tablet, extended release 12 hr 1,200 mg (2 x 600 mg) PO Q12H PRN COUGH/CONGESTION #120 tabs 11/17/22 [Rx Last Taken 03/03/23] acetaminophen 325 mg tablet (Tylenol) 650 mg PO 4X/DAY PRN PAIN 01/27/23 [History Last Taken 03/03/23] cyclobenzaprine 10 mg tablet 10 mg PO BID PRN MUSCLE SPASMS 01/27/23 [History Last Taken 03/03/23] diazepam 2 mg tablet (Valium) 2 mg PO TID PRN MUSCLE SPASMS 5 days #15 tabs 02/16/23 [Rx Last Taken 03/04/23] budesonide 160 mcg-glycopyr 9 mcg-formot 4.8 mcg/actuation HFA inhaler (Breztri Aerosphere) 2 inh inhalation BID SHORTNESS OF BREATH 03/04/23 [History Last Taken 03/03/23] carboxymethylcellulose sodium 0.5 % eye drops 1 drp EACH EYE TID PRN EYE DRYNESS 03/04/23 [History Last Taken 03/03/23] cholecalciferol (vitamin D3) 50 mcg (2,000 unit) capsule (D3-2000) 100 mcg PO DAILY SUPPLEMENT 03/04/23 [History Last Taken 03/03/23] empagliflozin 25 mg tablet (Jardiance) 25 mg PO DAILY DIABETES 03/04/23 [History Last Taken 03/03/23] guaifenesin 100 mg/5 mL oral liquid 200 mg PO TID PRN CONGESTION 03/04/23 [History Last Taken 03/03/23] insulin regular hum U-500 conc 500 unit/mL(3 mL) subcut pen (Humulin R U-500 (Conc) Insulin Kwikpen) See Rx Instructions subcut BID DIABETES 05/27/23 [History Last Taken Unknown] levetiracetam 500 mg tablet 500 mg PO BID 05/27/23 [History Last Taken Unknown] losartan 25 mg tablet 25 mg PO QDAY 05/27/23 [History Last Taken Unknown] furosemide 40 mg tablet 40 mg PO BID EDEMA #0 tabs 06/07/23 [Rx Last Taken 03/03/23] Allergy/AdvReac Type Severity Reaction Status Date / Time ezetimibe Allergy Unknown Verified 06/07/23 09:40 Fish Containing Products Allergy Unknown Verified 06/07/23 09:40 glyburide Allergy Unknown Verified 06/07/23 09:40 isosorbide Allergy PT UNSURE Verified 06/07/23 09:40 OF REACTION lisinopril Allergy Unknown Verified 06/07/23 09:40 metformin Allergy Nausea Verified 06/07/23 09:40 metoprolol Allergy Unknown Verified 06/07/23 09:40 simvastatin Allergy Unknown Verified 06/07/23 09:40 tramadol Allergy Other Verified 06/07/23 09:40 iron AdvReac Mild Vomiting Verified 06/07/23 09:40 gabapentin AdvReac Other Verified 06/07/23 09:40 Family History (Reviewed 05/27/23 @ 11:02 by Catherine Catherine [employer], [employer]PER[employer]-C) Father No problems noted. Surgical History (Reviewed 05/27/23 @ 11:02 by Catherine Catherine [employer], [employer]-C) H/O coronary artery bypass surgery History of cholecystectomy History of coronary artery stent placement History of knee replacement procedure of left knee History of permanent cardiac pacemaker placement (01/14/21) Social History household members: spouse Smoking Status: Former smoker details: Unknown substance use type: does not use ROS ROS ED Constitutional Constitutional ED: Denies chills or fever(s) Eyes Eyes: Denies change in vision or diplopia ENT ENT ED: Denies rhinorrhea or sore throat Cardiovascular Cardiovascular: Reports orthopnea and pedal edema; Denies chest pain or pal pitations Respiratory/Chest Respiratory/Chest: Reports dyspnea, dyspnea on exertion and orthopnea; Denies cough Gastrointestinal Gastrointestinal: Denies abdominal pain, diarrhea, nausea or vomiting Genitourinary Genitourinary ED: Denies dysuria or hematuria Musculoskeletal Musculoskeletal: Denies back pain or neck pain Integumentary Denies abscess or rash Neurologic Neurologic: Denies headache(s), paresthesias or weakness Psychiatric Psychiatric: Denies suicidal ideation or suicidal thoughts EXAM Physical Exam Const Vital Signs: 06/07/23 09:38 06/07/23 10:14 06/07/23 10:14 Temperature 98 F Temperature Source Temporal Pulse Rate 62 60 Respiratory Rate 22 H 21 H Respiratory Effort Respiratory Pattern Normal Blood Pressure 137/60 H Blood Pressure Mean 85 Pulse Ox 100 100 Oxygen Delivery Method Nasal Cannula Nasal Cannula Oxygen Flow Rate (L/min) 4 06/07/23 10:25 06/07/23 10:40 06/07/23 11:59 Temperature 97.4 F L 98 F Temperature Source Temporal Temporal Pulse Rate 88 60 Respiratory Rate 24 H 22 H Respiratory Effort Respiratory Pattern Blood Pressure 144/88 H 162/63 H Blood Pressure Mean 106 96 Pulse Ox 99 99 99 Oxygen Delivery Method Nasal Cannula Nasal Cannula Nasal Cannula Oxygen Flow Rate (L/min) 4 3 4 06/07/23 12:00 06/07/23 13:00 Temperature 98.4 F Temperature Source Temporal Pulse Rate 60 Respiratory Rate 16 Respiratory Effort Short of Breath Respiratory Pattern Blood Pressure 159/81 H Blood Pressure Mean 107 Pulse Ox 99 Oxygen Delivery Method Nasal Cannula Nasal Cannula Oxygen Flow Rate (L/min) 4 4 Positive well nourished, well developed and obese General Appearance ED: well developed and NAD Nutritional Appearance: obese HEENT Reports moist mucous membranes normocephalic and atraumatic Eyes PERRL and EOMs intact bilaterally Neck full ROM, supple and no JVD Neck Narrative: JVD exam limited by obesity, mike Chest Wall Chest Narrative: Left upper chest wall pacer/AICD surgical site with mild erythema but no induration, discharge. Skin glue intact. No significant tenderness. Resp Resp Narrative: Tachypneic but in no respiratory distress. Bibasilar rhonchi. Symmetric breath sounds bilaterally trachea midline. Cardio regular rate, regular rhythm and no murmurs GI non-tender and non-distended Auscultation: normoactive bowel sounds Palpation: soft Back/Spine no CVA tenderness General Back: other FROM Extremity normal to inspection General Extremety ED: Yes edema; Negative for pulses abnormal or tenderness General Extremity: edema bilateral lower extremity Details: moderate; Negative for pulses abnormal Neuro oriented x3, CN's II-XII intact bilaterally and no sensory deficits noted Sensorium / Orientation: awake and alert Motor Exam: strength 5/5 throughout Psych mental status grossly normal Skin no rashes or lesions noted and no wounds MDM MDM MDM Narrative Medical decision making narrative: Cardiac workup performed, his EKG does not show any acute injury pattern, he is being paced as usual according to do comparison to previous EKGs. His two-view chest x-ray my interpretation shows some mild CHF/cephalization which is similar-appearing to his prior chest x-ray. With increased edema in his legs I think this is probably indicative of fluid retention/CHF. While working him up given my concern for this prior to the workup, he was given Lasix 40 mg IV. Over the next couple hours he put out over 3 L of urine and actually his breathing was better. We ambulated him on his home oxygen of 4 L nasal cannula he did well never dropping below 99%. Given this I am comfortable discharging him home on twice daily Lasix for the next several days to week until he is able to follow-up. His kidney function looks good and should tolerate this for short duration. Lab Data Attestation: I reviewed the patient's lab results. Labs: Laboratory Results - last 24 hr 06/07/23 10:29 WBC 4.9 RBC 3.27 L Hgb 10.0 L Hct 31.9 L MCV 97.6 H MCH 30.6 MCHC 31.3 L RDW Std Deviation 49.6 H RDW Coeff of Cinda 14.1 Plt Count 134 L MPV 11.5 Immature Gran % (Auto) 0.200 Neut % (Auto) 80.5 H Lymph % (Auto) 12.0 L Knott % (Auto) 5.3 Eos % (Auto) 1.8 Baso % (Auto) 0.2 Absolute Neuts (auto) 4.0 Absolute Lymphs (auto) 0.59 L Nucleated RBC % 0 Sodium 140 Potassium 3.9 Chloride 103 Carbon Dioxide 29.0 Anion Gap 8 BUN 19 H Creatinine 1.12 Estim Creat Clear Calc 75.99 Est GFR (MDRD) Af Amer 83 Est GFR (MDRD) Non-Af 68 BUN/Creatinine Ratio 17.0 Glucose 243 H Calcium 8.4 L Troponin I High Sens 18 B-Natriuretic Peptide 212.0 H Radiography Diagnostic Testing: Clinical Impression(s) from Imaging Studies Chest X-Ray 06/07/23 10:30 IMPRESSION: Stable cardiomegaly. Stable prominent interstitial markings, suggestive of a chronic process, cannot exclude mild edema and/or an infectious process. Electronically Signed: Stephy Alberto MD at 11:00 EDT Reading Location ID and State: [facility] / [place] Tel , Service support , Rhythm Strip Rhythm Strip: paced Rate: 63 Ectopy: PVC(s) EKG Initial EKG: Interpretation: No Acute Injury Pattern and Paced Prior EKG tracings: available for review Prior: Unchanged Discharge Plan Triage Chief Complaint: Shortness of Breath ED Provider: Shai Hassan Dx/Rx/DC Orders Clinical Impression: Acute exacerbation of CHF (congestive heart failure) Instructions: Heart Failure Dc Prescriptions: Continued clopidogrel [Plavix] 75 mg tablet 75 mg PO DAILY levetiracetam 500 mg tablet 500 mg PO BID losartan 25 mg tablet 25 mg PO QDAY atorvastatin 80 MG tablet 80 mg PO QHS aspirin 81 MG tablet 81 mg PO DAILY finasteride 5 MG tablet 5 mg PO DAILY escitalopram oxalate 10 MG tablet 10 mg PO DAILY Humulin R U-500 (Conc) Kwikpen 500 unit/mL (3 mL) insulin pen See Rx Instructions subcut BID Rx Instructions: 115 units with breakfast; 105 units with dinner nitroglycerin 0.4 MG tablet, sublingual 0.4 mg sublingual Q5M PRN (Reason: CHEST PAIN ) Qty: 30 0RF pantoprazole 40 MG tablet 40 mg PO BID carvedilol 25 MG tablet 25 mg PO BID ranolazine 500 mg Tablet Extended Release 12 Hr 500 mg PO Q12H tamsulosin 0.4 MG capsule 0.4 mg PO QHS magnesium oxide 420 mg Tablet 420 mg PO BID ketoconazole 2 % Shampoo 1 applic TOPICAL DAILY albuterol sulfate 2.5 mg /3 mL (0.083 %) Solution For Nebulization 2.5 mg INHALATION Q6H PRN (Reason: SHORTNESS OF BREATH/WHEEZING ) multivitamin with minerals Tablet 1 tab PO DAILY spironolactone [Aldactone] 25 mg tablet 25 mg PO DAILY acetaminophen [Tylenol] 325 MG tablet 650 mg PO 4X/DAY PRN (Reason: PAIN ) cyclobenzaprine 10 mg tablet 10 mg PO BID PRN (Reason: MUSCLE SPASMS) diazepam [Valium] 2 mg tablet 2 mg PO TID PRN (Reason: MUSCLE SPASMS) 5 Days Qty: 15 0RF Jardiance 25 mg tablet 25 mg PO DAILY carboxymethylcellulose sodium 0.5 % drops 1 drp EACH EYE TID PRN (Reason: EYE DRYNESS ) guaifenesin 100 mg/5 mL liquid 200 mg PO TID PRN (Reason: CONGESTION ) cholecalciferol (vitamin D3) [D3-2000] 50 mcg (2,000 unit) capsule 100 mcg PO DAILY Breztri Aerosphere 160-9-4.8 mcg/actuation HFA aerosol inhaler 2 inh inhalation BID Patient Comments: PT STATES THEY HAVE THE INHALER BUT IT DOES NOT WORK WELL FOR THEM Rx Instructions: RINSE MOUTH AFTER USE guaifenesin 600 mg tablet extended release 12hr 1,200 mg PO Q12H PRN (Reason: COUGH/CONGESTION ) Qty: 120 11RF Changed furosemide 40 mg Tablet 40 mg PO BID Qty: 0 0RF [facility] [facility] [Primary Care Provider] - As soon as possible Disposition Disposition: Home, Self Care
[2023-06-07] MEDS: Ipratropium/Albuterol Sulfate 3 ML AMPUL.NEB INHALATION (10:11)
[2023-06-07] MEDS: Furosemide 40 MG/4 ML Vial IV (10:27)
--- NOTE | 2023-06-07 10:30 | RAD_ITS ---
INDICATION: Shortness of breath EXAMINATION/TECHNIQUE: X-RAY - XR Chest 1 View COMPARISON: April 09, 2023 FINDINGS: LINES/DEVICES: There is a cardiac pacer device in place. LUNGS: There are stable prominent interstitial markings. No pneumothorax. MEDIASTINUM AND CARDIOVASCULAR STRUCTURES: There is stable cardiomegaly. Central airways and mediastinal contour are unremarkable. BONES AND SOFT TISSUES: There is a stable right clavicular deformity consistent with a healed fracture. There are multiple left rib plate and screw fixation devices in place. RAD/Chest 1 View (Portable) IMPRESSION: Stable cardiomegaly. Stable prominent interstitial markings, suggestive of a chronic process, cannot exclude mild edema and/or an infectious process. Electronically Signed: Stephy Alberto MD at 11:00 EDT ,
[2023-06-07 10:42] LABS: Absolute Lymphocyte Count 0.59 X10^3/uL (0.83-4.51); Basophil# 0.01 X10^3/uL; Basophil% 0.2 % (0-1); Eosinophil# 0.09 X10^3/uL; Eosinophils% 1.8 % (0-5); Hematocrit 31.9 % (40-54); Lymphocyte # 0.59 X10^3/ul (0.83-4.51); Mean Corp Hgb Conc 31.3 g/dL (32-36); Mean Corpuscular Hgb 30.6 pg (27.0-32.0); Mean Corpuscular Volume 97.6 fL (80-94); Mean Platelet Vol. 11.5 fl (6.2-12.0); Monocyte# 0.26 X10^3/uL; Monocyte% 5.3 % (0-10); NRBC Flagged by Analyzer 0 % (0-5); Neutrophil # 3.97 X10^3/uL (2.7-7.7); Neutrophil % 80.5 % (47-70); POSITIVE DIFFERENTIAL YES; Platelet Count 134 K/mm3 (150-450); RBC Distribution Width CV 14.1 % (11.6-14.6); RBC Distribution Width SD 49.6 fl (35.1-43.9); Red Blood Count 3.27 M/mm3 (4.6-6.2); White Blood Count 4.9 K/mm3 (4.4-11.0)
[2023-06-07 10:51] LABS: Anion Gap 8 (5-15); BUN 19 mg/dL (7-18); Calcium,Total 8.4 mg/dL (8.5-10.1); Chloride 103 mmol/L (98-107); Creatinine, Serum 1.12 mg/dL (0.70-1.30); EST Glomerular Filtration Rate 68 mL/min (>60); Est Glom Filt Rate - Afr Amer 83 mL/min (>60); Estimated Creatinine Clearance 75.99 ml/min; Glucose 243 mg/dL (74-106); Potassium 3.9 mmol/L (3.5-5.1); Sodium Level 140 mmol/L (136-145); Troponin-I HS 18 pg/mL (3.0-78.0)
== END 2023-06-07 16:19 | disposition home or self-care (01) ==
PROVIDERS: Emergency Provider Emergency Medicine; Visit Provider Emergency Medicine
DX: I11.0 Hypertensive heart disease with heart failure (principal); I50.9 Heart failure, unspecified; J44.9 Chronic obstructive pulmonary disease, unspecified; E11.9 Type 2 diabetes mellitus without complications; Z79.4 Long term (current) use of insulin; Z95.810 Presence of automatic (implantable) cardiac defibrillator; Z87.891 Personal history of nicotine dependence; Z99.81 Dependence on supplemental oxygen; I25.10 Atherosclerotic heart disease of native coronary artery without angina pectoris; Z86.73 Personal history of transient ischemic attack (TIA), and cerebral infarction without residual deficits; E78.5 Hyperlipidemia, unspecified; Z79.82 Long term (current) use of aspirin; Z79.899 Other long term (current) drug therapy; G47.33 Obstructive sleep apnea (adult) (pediatric); Z79.02 Long term (current) use of antithrombotics/antiplatelets; Z79.51 Long term (current) use of inhaled steroids; Z90.49 Acquired absence of other specified parts of digestive tract; Z95.5 Presence of coronary angioplasty implant and graft; Z96.652 Presence of left artificial knee joint
CPT/HCPCS: 71045; 80048; 83880; 84484; 85025; 93005; 94640; 96374; 99284; A4216; J1940

== ENCOUNTER 2023-06-19 12:36 | Emergency (ER) | payer OTHER, SELFPAY ==
[2023-06-19 12:37] VITALS: BP 114/71; PULSE 113; RESP 22; TEMP 37; O2SAT 95
[2023-06-19 12:47] VITALS: BP 110/73; PULSE 60; RESP 14; O2SAT 100
[2023-06-19 12:48] VITALS: O2SAT 100
--- NOTE | 2023-06-19 13:04 | RAD_ITS ---
STUDY: X-RAY CHEST REASON FOR EXAM: Male, 73 years old. Sob TECHNIQUE: Single AP portable view of the chest. COMPARISON: Comparison is made with prior study June 07, 2023. FINDINGS: EKG electrodes are seen. Stable mild increased linear markings at the left lung base most likely secondary to scarring. Stable blunting of the left costophrenic angle. Sternal cerclage wires and vascular clips are present from a prior sternotomy and coronary artery bypass graft procedure (CABG). Borderline cardiomegaly. A left-sided chamber pacemaker is seen. Normal mediastinum and cata. Normal visualized pulmonary arteries. Normal visualized aortic arch and descending thoracic aorta. Normal visualized thoracic spine. Prior ORIF of multiple left rib fractures. There is no demonstrated abnormality of the visualized soft tissue structures of the upper abdomen. RAD/Chest 1 View (Portable) IMPRESSION: Stable increased markings at the left lung base suggestive of scarring. Multiple healed left lateral rib fractures. Electronically Signed: Mick García MD at 13:33 EDT ,
--- NOTE | 2023-06-19 13:04 | EKG12_ITS ---
Test Reason : SOB Blood Pressure : / mmHG Vent. Rate : 064 BPM Atrial Rate : 059 BPM P-R Int : 000 ms QRS Dur : 140 ms QT Int : 516 ms P-R-T Axes : 000 237 119 degrees QTc Int : 532 ms Ventricular-paced rhythm with premature ventricular or aberrantly conducted complexes Biventricular pacemaker detected Abnormal ECG Confirmed by PADILLA GUALLPA, CALI ([id number]), brands editor NADINE FERRER ([id number]) on 06/22/2023 11:36:22 AM Referred By: Confirmed By:CALI CAUSEY MD
--- NOTE | 2023-06-19 13:05 | ED.VIS.DYS ---
HPI History of Present Illness Chief Complaint: Shortness of Breath Informant: patient and spouse/S.O. Narrative Narrative: Patient presents changes been short of breath all day today, more than usual. States he feels like he may be filling up with fluid. He has chest pain diffuse as well as his upper back and neck that he states is no big deal but is a 7/10 and 1 something for the pain. He states this is been there for a long time and is no different. He feels like pressure and needles. Nonpleuritic. Denies any cough recently. Denies any swelling in his legs that is different than usual. Since he was here about a week ago or so, he has been on increased dose of Lasix, 40 mg twice daily instead of once daily, states he is urinating quite a bit every time he takes it, and is due to follow-up with his doctor in a week or so at [facility]. According to triage, his oxygen tank is out. He is on 4 L at home. He states it was not gone today, it was getting low but he was still getting air and upon getting on the oxygen here from our department, he states he still feels a little short of breath and did not make a big difference. 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 BiPAP (biphasic positive airway pressure) dependence CAD (coronary artery disease) Chest pain Chest pain Chronic hyperglycemia Chronic respiratory failure Congestive heart failure (CHF) Conversion reaction COPD (chronic obstructive pulmonary disease) Diabetes DM type 2 (diabetes mellitus, type 2) DNR (do not resuscitate) DNR (do not resuscitate) discussion Dysarthria Essential (primary) hypertension Former smoker Heart failure Hemiparesis, left History of fractured rib History of TIAs Hyperlipidemia Left-sided weakness Myocardial infarct Obesity On home oxygen therapy EKATERINA (obstructive sleep apnea) EKATERINA (obstructive sleep apnea) Pacemaker Pacemaker battery depletion Pulmonary embolism Sick sinus syndrome Stroke/cerebrovascular accident Syncope Wears hearing aid in both ears Home Medications aspirin 81 mg tablet,delayed release 81 mg PO DAILY HEART HEALTH 06/11/18 [History Last Taken 03/03/23] atorvastatin 80 mg tablet 80 mg PO QHS CHOLESTEROL 06/11/18 [History Last Taken 03/03/23] escitalopram oxalate 10 mg tablet 10 mg PO DAILY DEPRESSION 06/11/18 [History Last Taken 03/03/23] finasteride 5 mg tablet 5 mg PO DAILY PROSTATE 06/11/18 [History Last Taken 03/03/23] nitroglycerin 0.4 mg sublingual tablet 0.4 mg sublingual Q5M PRN CHEST PAIN #30 TABLETS 07/22/18 [Rx Last Taken 01/17/20] pantoprazole 40 mg tablet,delayed release 40 mg PO BID GERD 05/18/20 [History Last Taken 03/03/23] carvedilol 25 mg tablet 25 mg PO BID BLOOD PRESSURE 06/22/20 [History Last Taken 03/03/23] ranolazine 500 mg tablet,extended release,12 hr 500 mg PO Q12H CHEST PAIN 06/22/20 [History Last Taken 03/03/23] tamsulosin 0.4 mg capsule 0.4 mg PO QHS PROSTATE 08/10/20 [History Last Taken 03/03/23] clopidogrel 75 mg tablet (Plavix) 75 mg PO DAILY BLOOD THINNER 01/07/21 [History Last Taken 03/03/23] albuterol sulfate 2.5 mg/3 mL (0.083 %) solution for nebulization 2.5 mg inhalation Q6H PRN SHORTNESS OF BREATH/WHEEZING 12/12/21 [History Last Taken 03/03/23] ketoconazole 2 % shampoo 1 applic topical DAILY DRY SCALP 12/12/21 [History Last Taken 03/03/23] magnesium oxide 420 mg tablet 420 mg PO BID SUPPLEMENT 12/12/21 [History Last Taken 03/03/23] multivitamin with minerals 1 tab PO DAILY SUPPLEMENT 12/12/21 [History Last Taken 03/03/23] spironolactone 25 mg tablet (Aldactone) 25 mg PO DAILY BLOOD PRESSURE 09/10/22 [History Last Taken 03/03/23] guaifenesin 600 mg tablet, extended release 12 hr 1,200 mg (2 x 600 mg) PO Q12H PRN COUGH/CONGESTION #120 tabs 11/17/22 [Rx Last Taken 03/03/23] acetaminophen 325 mg tablet (Tylenol) 650 mg PO 4X/DAY PRN PAIN 01/27/23 [History Last Taken 03/03/23] cyclobenzaprine 10 mg tablet 10 mg PO BID PRN MUSCLE SPASMS 01/27/23 [History Last Taken 03/03/23] diazepam 2 mg tablet (Valium) 2 mg PO TID PRN MUSCLE SPASMS 5 days #15 tabs 02/16/23 [Rx Last Taken 03/04/23] budesonide 160 mcg-glycopyr 9 mcg-formot 4.8 mcg/actuation HFA inhaler (Breztri Aerosphere) 2 inh inhalation BID SHORTNESS OF BREATH 03/04/23 [History Last Taken 03/03/23] carboxymethylcellulose sodium 0.5 % eye drops 1 drp EACH EYE TID PRN EYE DRYNESS 03/04/23 [History Last Taken 03/03/23] cholecalciferol (vitamin D3) 50 mcg (2,000 unit) capsule (D3-2000) 100 mcg PO DAILY SUPPLEMENT 03/04/23 [History Last Taken 03/03/23] empagliflozin 25 mg tablet (Jardiance) 25 mg PO DAILY DIABETES 03/04/23 [History Last Taken 03/03/23] guaifenesin 100 mg/5 mL oral liquid 200 mg PO TID PRN CONGESTION 03/04/23 [History Last Taken 03/03/23] insulin regular hum U-500 conc 500 unit/mL(3 mL) subcut pen (Humulin R U-500 (Conc) Insulin Kwikpen) See Rx Instructions subcut BID DIABETES 05/27/23 [History Last Taken Unknown] levetiracetam 500 mg tablet 500 mg PO BID 05/27/23 [History Last Taken Unknown] losartan 25 mg tablet 25 mg PO QDAY 05/27/23 [History Last Taken Unknown] furosemide 40 mg tablet 40 mg PO BID EDEMA #0 tabs 06/07/23 [Rx Last Taken 03/03/23] Allergy/AdvReac Type Severity Reaction Status Date / Time ezetimibe Allergy Unknown Verified 06/07/23 09:40 Fish Containing Products Allergy Unknown Verified 06/07/23 09:40 glyburide Allergy Unknown Verified 06/07/23 09:40 isosorbide Allergy PT UNSURE Verified 06/07/23 09:40 OF REACTION lisinopril Allergy Unknown Verified 06/07/23 09:40 metformin Allergy Nausea Verified 06/07/23 09:40 metoprolol Allergy Unknown Verified 06/07/23 09:40 simvastatin Allergy Unknown Verified 06/07/23 09:40 tramadol Allergy Other Verified 06/07/23 09:40 iron AdvReac Mild Vomiting Verified 06/07/23 09:40 gabapentin AdvReac Other Verified 06/07/23 09:40 Family History (Reviewed 05/27/23 @ 11:02 by Catherine Catherine [employer] DEVELOPER, [employer] DEVELOPER-C) Father No problems noted. Surgical History H/O coronary artery bypass surgery History of cholecystectomy History of coronary artery stent placement History of knee replacement procedure of left knee History of permanent cardiac pacemaker placement (01/14/21) Social History household members: spouse Smoking Status: Former smoker details: Unknown substance use type: does not use ROS ROS ED Constitutional Constitutional ED: Denies chills or fever(s) Eyes Eyes: Denies change in vision or diplopia ENT ENT ED: Denies rhinorrhea or sore throat Cardiovascular Cardiovascular: Reports chest pain; Denies palpitations Respiratory/Chest Respiratory/Chest: Reports dyspnea and dyspnea on exertion; Denies cough Gastrointestinal Gastrointestinal: Denies abdominal pain, diarrhea, nausea or vomiting Genitourinary Genitourinary ED: Denies dysuria or hematuria Musculoskeletal Musculoskeletal: Reports back pain and neck pain Integumentary Denies abscess or rash Neurologic Neurologic: Denies headache(s), paresthesias or weakness Psychiatric Psychiatric: Denies suicidal ideation or suicidal thoughts EXAM Physical Exam Const Vital Signs: 06/19/23 12:37 06/19/23 12:47 06/19/23 12:48 Temperature 98.6 F Temperature Source Temporal Pulse Rate 113 H 60 Respiratory Rate 22 H 14 Respiratory Effort Short of Breath Labored Respiratory Depth Shallow Respiratory Pattern Blood Pressure 114/71 110/73 Blood Pressure Mean 85 85 Pulse Ox 95 100 Oxygen Delivery Method Room Air Nasal Cannula Nasal Cannula Oxygen Flow Rate (L/min) 4 06/19/23 13:28 06/19/23 13:33 06/19/23 14:30 Temperature Temperature Source Pulse Rate 62 60 Respiratory Rate 13 16 Respiratory Effort Respiratory Depth Respiratory Pattern Normal Blood Pressure 124/63 H Blood Pressure Mean 80 Pulse Ox 99 Oxygen Delivery Method Nasal Cannula Oxygen Flow Rate (L/min) Positive well nourished and well developed General Appearance ED: well developed and NAD HEENT Reports moist mucous membranes normocephalic and atraumatic Eyes PERRL and EOMs intact bilaterally Neck full ROM, supple, no meningeal signs and no JVD Resp normal respiratory effort Resp Narrative: Diminished throughout but otherwise clear and equal bilaterally Cardio regular rate, regular rhythm and no murmurs GI non-tender and non-distended Auscultation: normoactive bowel sounds Palpation: soft Back/Spine no CVA tenderness General Back: other FROM Extremity normal to inspection General Extremety ED: Negative for edema, pulses abnormal or tenderness General Extremity: Negative for edema or pulses abnormal Neuro oriented x3, CN's II-XII intact bilaterally and no sensory deficits noted Sensorium / Orientation: awake and alert Motor Exam: strength 5/5 throughout Psych mental status grossly normal Skin no rashes or lesions noted and no wounds MDM MDM MDM Narrative Medical decision making narrative: CHF workup obtained will give the patient a duo nebulizer treatment. This really helped. Given the workup, he does not appear to have acute coronary syndrome and he does not appear to be fluid overloaded or be in acute CHF. His BNP is low when compared to other measurements. Patient reassured, I think this is more related to his COPD, but since it was just today and he usually does breathing treatments periodically, but did not today because he went to a different doctor's appointment in [place], I do not think we need to put him on steroids right now. If he continues to get worse and requiring his aerosol multiple times per day, developing a cough, fevers, etc. then I would change this, but I would not put him on prednisone if we can help it so as not to exacerbate his history of fluid retention. Also prior to discharge, confirm that they have more oxygen tanks to replace the 1 that is gone, and the has 1 in the car for his trip home. Lab Data Attestation: I reviewed the patient's lab results. Labs: Laboratory Results - last 24 hr 06/19/23 13:15 WBC 5.8 RBC 3.81 L Hgb 11.7 L Hct 36.5 L MCV 95.8 H MCH 30.7 MCHC 32.1 RDW Std Deviation 50.0 H RDW Coeff of Cinda 14.4 Plt Count 156 MPV 10.8 Immature Gran % (Auto) 0.300 Neut % (Auto) 76.3 H Lymph % (Auto) 14.1 L Ada % (Auto) 6.9 Eos % (Auto) 2.1 Baso % (Auto) 0.3 Absolute Neuts (auto) 4.4 Absolute Lymphs (auto) 0.82 L Nucleated RBC % 0 Sodium 140 Potassium 4.1 Chloride 106 Carbon Dioxide 31.0 Anion Gap 3 L BUN 23 H Creatinine 1.22 Est GFR (MDRD) Af Amer 75 Est GFR (MDRD) Non-Af 62 BUN/Creatinine Ratio 18.9 Glucose 165 H Calcium 8.5 Troponin I High Sens 16 B-Natriuretic Peptide 112.6 H Radiography Diagnostic Testing: Clinical Impression(s) from Imaging Studies Chest X-Ray 06/19/23 13:04 IMPRESSION: Stable increased markings at the left lung base suggestive of scarring. Multiple healed left lateral rib fractures. Electronically Signed: Mick García MD at 13:33 EDT Reading Location ID and State: [facility] / [place] , Service support , Rhythm Strip Rhythm Strip: paced Rate: 65 Ectopy: None EKG Initial EKG: Attestation: I personally reviewed and interpreted this EKG as follows: Interpretation: No Acute Injury Pattern and Paced Discharge Plan Triage Chief Complaint: Shortness of Breath ED Provider: Shai Hassan Dx/Rx/DC Orders Clinical Impression: Chronic hypoxemic respiratory failure, Acute dyspnea, COPD (chronic obstructive pulmonary disease) Instructions: COPD: Wheezing and Chest Tightness Prescriptions: No Action clopidogrel [Plavix] 75 mg tablet 75 mg PO DAILY levetiracetam 500 mg tablet 500 mg PO BID losartan 25 mg tablet 25 mg PO QDAY atorvastatin 80 MG tablet 80 mg PO QHS aspirin 81 MG tablet 81 mg PO DAILY finasteride 5 MG tablet 5 mg PO DAILY escitalopram oxalate 10 MG tablet 10 mg PO DAILY Humulin R U-500 (Conc) Kwikpen 500 unit/mL (3 mL) insulin pen See Rx Instructions subcut BID Rx Instructions: 115 units with breakfast; 105 units with dinner nitroglycerin 0.4 MG tablet, sublingual 0.4 mg sublingual Q5M PRN (Reason: CHEST PAIN ) Qty: 30 0RF pantoprazole 40 MG tablet 40 mg PO BID carvedilol 25 MG tablet 25 mg PO BID ranolazine 500 mg Tablet Extended Release 12 Hr 500 mg PO Q12H tamsulosin 0.4 MG capsule 0.4 mg PO QHS magnesium oxide 420 mg Tablet 420 mg PO BID ketoconazole 2 % Shampoo 1 applic TOPICAL DAILY albuterol sulfate 2.5 mg /3 mL (0.083 %) Solution For Nebulization 2.5 mg INHALATION Q6H PRN (Reason: SHORTNESS OF BREATH/WHEEZING ) multivitamin with minerals Tablet 1 tab PO DAILY spironolactone [Aldactone] 25 mg tablet 25 mg PO DAILY acetaminophen [Tylenol] 325 MG tablet 650 mg PO 4X/DAY PRN (Reason: PAIN ) cyclobenzaprine 10 mg tablet 10 mg PO BID PRN (Reason: MUSCLE SPASMS) diazepam [Valium] 2 mg tablet 2 mg PO TID PRN (Reason: MUSCLE SPASMS) 5 Days Qty: 15 0RF Jardiance 25 mg tablet 25 mg PO DAILY carboxymethylcellulose sodium 0.5 % drops 1 drp EACH EYE TID PRN (Reason: EYE DRYNESS ) guaifenesin 100 mg/5 mL liquid 200 mg PO TID PRN (Reason: CONGESTION ) cholecalciferol (vitamin D3) [D3-2000] 50 mcg (2,000 unit) capsule 100 mcg PO DAILY Breztri Aerosphere 160-9-4.8 mcg/actuation HFA aerosol inhaler 2 inh inhalation BID Patient Comments: PT STATES THEY HAVE THE INHALER BUT IT DOES NOT WORK WELL FOR THEM Rx Instructions: RINSE MOUTH AFTER USE furosemide 40 mg Tablet 40 mg PO BID Qty: 0 0RF guaifenesin 600 mg tablet extended release 12hr 1,200 mg PO Q12H PRN (Reason: COUGH/CONGESTION ) Qty: 120 11RF [facility] Care Provider[facility] [facility] [Primary Care Provider] - 1 Week if not improving (Or may return to the ER if worse despite using your nebulizer at home for your trouble breathing) Disposition Disposition: Home, Self Care
[2023-06-19] MEDS: Morphine 4 MG/ML Syringe IV (13:22)
[2023-06-19 13:29] LABS: Absolute Lymphocyte Count 0.82 X10^3/uL (0.83-4.51); Absolute Neutrophil Count 4.4 X10^3/uL (2.0-7.7); Basophil# 0.02 X10^3/uL; Basophil% 0.3 % (0-1); Eosinophil# 0.12 X10^3/uL; Eosinophils% 2.1 % (0-5); Hematocrit 36.5 % (40-54); Hemoglobin 11.7 g/dL (13.0-16.5); Lymphocyte # 0.82 X10^3/ul (0.83-4.51); Lymphocyte % 14.1 % (19-41); Mean Corp Hgb Conc 32.1 g/dL (32-36); Mean Corpuscular Hgb 30.7 pg (27.0-32.0); Mean Corpuscular Volume 95.8 fL (80-94); Mean Platelet Vol. 10.8 fl (6.2-12.0); Monocyte% 6.9 % (0-10); NRBC Flagged by Analyzer 0 % (0-5); Neutrophil # 4.44 X10^3/uL (2.7-7.7); Neutrophil % 76.3 % (47-70); Platelet Count 156 K/mm3 (150-450); RBC Distribution Width CV 14.4 % (11.6-14.6); Red Blood Count 3.81 M/mm3 (4.6-6.2); White Blood Count 5.8 K/mm3 (4.4-11.0)
[2023-06-19] MEDS: Ipratropium/Albuterol Sulfate 3 ML AMPUL.NEB INHALATION (13:30)
[2023-06-19 13:33] VITALS: PULSE 62; RESP 13
[2023-06-19 13:48] LABS: Anion Gap 3 (5-15); BNP,B-Type NATRIURETIC PEPTIDE 112.6 pg/mL (0-100); BUN 23 mg/dL (7-18); BUN/Creat Ratio 18.9 RATIO (10-20); Calcium,Total 8.5 mg/dL (8.5-10.1); Chloride 106 mmol/L (98-107); Creatinine, Serum 1.22 mg/dL (0.70-1.30); EST Glomerular Filtration Rate 62 mL/min (>60); Est Glom Filt Rate - Afr Amer 75 mL/min (>60); Glucose 165 mg/dL (74-106); Potassium 4.1 mmol/L (3.5-5.1); Sodium Level 140 mmol/L (136-145); Troponin-I HS 16 pg/mL (3.0-78.0)
[2023-06-19 14:30] VITALS: BP 124/63; PULSE 60; RESP 16; O2SAT 99
[2023-06-19 15:01] VITALS: BP 124/63; PULSE 60; RESP 18; TEMP 36.7; O2SAT 99
== END 2023-06-19 15:12 | disposition home or self-care (01) ==
PROVIDERS: Emergency Provider Emergency Medicine; Visit Provider Emergency Medicine
DX: J96.11 Chronic respiratory failure with hypoxia (principal); I11.0 Hypertensive heart disease with heart failure; J44.9 Chronic obstructive pulmonary disease, unspecified; E11.9 Type 2 diabetes mellitus without complications; Z87.891 Personal history of nicotine dependence; I25.10 Atherosclerotic heart disease of native coronary artery without angina pectoris; Z86.73 Personal history of transient ischemic attack (TIA), and cerebral infarction without residual deficits; I25.2 Old myocardial infarction; E78.5 Hyperlipidemia, unspecified; Z95.0 Presence of cardiac pacemaker; G47.33 Obstructive sleep apnea (adult) (pediatric); Z79.82 Long term (current) use of aspirin; Z79.899 Other long term (current) drug therapy; Z79.51 Long term (current) use of inhaled steroids; Z90.49 Acquired absence of other specified parts of digestive tract; Z95.5 Presence of coronary angioplasty implant and graft; Z96.652 Presence of left artificial knee joint
CPT/HCPCS: 71045; 80048; 83880; 84484; 85025; 93005; 94640; 96374; 99283; A4216

== ENCOUNTER 2023-06-21 10:57 | Emergency (ER) | payer OTHER, SELFPAY ==
[2023-06-21] VITALS (10 sets, daily range): BP systolic 128–185; BP diastolic 42–87; PULSE 60–75; RESP 15–25; TEMP 36.6–36.7; O2SAT 96–100; BMI 34.4
--- NOTE | 2023-06-21 11:24 | EKG12_ITS ---
Test Reason : SOB Blood Pressure : / mmHG Vent. Rate : 060 BPM Atrial Rate : 060 BPM P-R Int : 168 ms QRS Dur : 142 ms QT Int : 508 ms P-R-T Axes : 000 233 106 degrees QTc Int : 508 ms AV dual-paced rhythm Biventricular pacemaker detected Abnormal ECG Confirmed by PADILLA GUALLPA, CALI ([id number]), commissioning editor KENDALL ROCHE ([id number]) on 06/22/2023 7:03:34 AM Referred By: Confirmed By:CALI CAUSEY MD
--- NOTE | 2023-06-21 11:30 | EDS_ITS ---
HPI <DEV Ceja - Last Filed: 06/21/23 16:38> History of Present Illness Chief Complaint: Complaint Narrative Narrative: Patient presenting today due to dysuria, decreased urinary output, and increased urinary frequency that he has had over the past few days. He has had a UTI in the past and this feels similar. He also reports that he had 2 episodes of passing out today and 1 episode yesterday. He reports that these episodes occurred after getting up from the toilet to go to his bed. He reports that he was able to make it to his bed prior to passing out. However, he is unable to communicate whether or not he is actually losing consciousness, losing his vision, or feeling presyncopal. He denies any symptoms prior to these episodes. He denies falling or hitting his head. He reports that he has had pain across his chest intermittently for a long time, this is present today. He reports that he does have an AICD in place. Patient has a history of COPD and wears 4 L O2 at baseline. He denies any fevers, chills, flank pain, abdominal pain, nausea, and vomiting. 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 BiPAP (biphasic positive airway pressure) dependence CAD (coronary artery disease) Chest pain Chest pain Chronic hyperglycemia Chronic respiratory failure Congestive heart failure (CHF) Conversion reaction COPD (chronic obstructive pulmonary disease) Diabetes DM type 2 (diabetes mellitus, type 2) DNR (do not resuscitate) DNR (do not resuscitate) discussion Dysarthria Essential (primary) hypertension Former smoker Heart failure Hemiparesis, left History of fractured rib History of TIAs Hyperlipidemia Left-sided weakness Myocardial infarct Obesity On home oxygen therapy EKATERINA (obstructive sleep apnea) EKATERINA (obstructive sleep apnea) Pacemaker Pacemaker battery depletion Pulmonary embolism Sick sinus syndrome Stroke/cerebrovascular accident Syncope Wears hearing aid in both ears Home Medications aspirin 81 mg tablet,delayed release 81 mg PO DAILY HEART HEALTH 06/11/18 [History Last Taken 03/03/23] atorvastatin 80 mg tablet 80 mg PO QHS CHOLESTEROL 06/11/18 [History Last Taken 03/03/23] escitalopram oxalate 10 mg tablet 10 mg PO DAILY DEPRESSION 06/11/18 [History Last Taken 03/03/23] finasteride 5 mg tablet 5 mg PO DAILY PROSTATE 06/11/18 [History Last Taken 03/03/23] nitroglycerin 0.4 mg sublingual tablet 0.4 mg sublingual Q5M PRN CHEST PAIN #30 TABLETS 07/22/18 [Rx Last Taken 01/17/20] pantoprazole 40 mg tablet,delayed release 40 mg PO BID GERD 05/18/20 [History L ast Taken 03/03/23] carvedilol 25 mg tablet 25 mg PO BID BLOOD PRESSURE 06/22/20 [History Last Taken 03/03/23] ranolazine 500 mg tablet,extended release,12 hr 500 mg PO Q12H CHEST PAIN 06/22/20 [History Last Taken 03/03/23] tamsulosin 0.4 mg capsule 0.4 mg PO QHS PROSTATE 08/10/20 [History Last Taken 03/03/23] clopidogrel 75 mg tablet (Plavix) 75 mg PO DAILY BLOOD THINNER 01/07/21 [History Last Taken 03/03/23] albuterol sulfate 2.5 mg/3 mL (0.083 %) solution for nebulization 2.5 mg inhalation Q6H PRN SHORTNESS OF BREATH/WHEEZING 12/12/21 [History Last Taken 03/03/23] ketoconazole 2 % shampoo 1 applic topical DAILY DRY SCALP 12/12/21 [History Last Taken 03/03/23] magnesium oxide 420 mg tablet 420 mg PO BID SUPPLEMENT 12/12/21 [History Last Taken 03/03/23] multivitamin with minerals 1 tab PO DAILY SUPPLEMENT 12/12/21 [History Last Taken 03/03/23] spironolactone 25 mg tablet (Aldactone) 25 mg PO DAILY BLOOD PRESSURE 09/10/22 [History Last Taken 03/03/23] guaifenesin 600 mg tablet, extended release 12 hr 1,200 mg (2 x 600 mg) PO Q12H PRN COUGH/CONGESTION #120 tabs 11/17/22 [Rx Last Taken 03/03/23] acetaminophen 325 mg tablet (Tylenol) 650 mg PO 4X/DAY PRN PAIN 01/27/23 [History Last Taken 03/03/23] cyclobenzaprine 10 mg tablet 10 mg PO BID PRN MUSCLE SPASMS 01/27/23 [History Last Taken 03/03/23] budesonide 160 mcg-glycopyr 9 mcg-formot 4.8 mcg/actuation HFA inhaler (Breztri Aerosphere) 2 inh inhalation BID SHORTNESS OF BREATH 03/04/23 [History Last Taken 03/03/23] carboxymethylcellulose sodium 0.5 % eye drops 1 drp EACH EYE TID PRN EYE DRYNESS 03/04/23 [History Last Taken 03/03/23] cholecalciferol (vitamin D3) 50 mcg (2,000 unit) capsule (D3-2000) 100 mcg PO DAILY SUPPLEMENT 03/04/23 [History Last Taken 03/03/23] empagliflozin 25 mg tablet (Jardiance) 25 mg PO DAILY DIABETES 03/04/23 [History Last Taken 03/03/23] guaifenesin 100 mg/5 mL oral liquid 200 mg PO TID PRN CONGESTION 03/04/23 [History Last Taken 03/03/23] insulin regular hum U-500 conc 500 unit/mL(3 mL) subcut pen (Humulin R U-500 (Conc) Insulin Kwikpen) See Rx Instructions subcut BID DIABETES 05/27/23 [History Last Taken Unknown] levetiracetam 500 mg tablet 500 mg PO BID 05/27/23 [History Last Taken Unknown] furosemide 40 mg tablet 40 mg PO BID EDEMA #0 tabs 06/07/23 [Rx Last Taken 03/03/23] cephalexin 500 mg capsule 500 mg PO Q6 #40 CAPSULES 06/21/23 [Rx Last Taken Unknown] Allergy/AdvReac Type Severity Reaction Status Date / Time ezetimibe Allergy Unknown Verified 06/07/23 09:40 Fish Containing Products Allergy Unknown Verified 06/07/23 09:40 glyburide Allergy Unknown Verified 06/07/23 09:40 isosorbide Allergy PT UNSURE Verified 06/07/23 09:40 OF REACTION lisinopril Allergy Unknown Verified 06/07/23 09:40 metformin Allergy Nausea Verified 06/07/23 09:40 metoprolol Allergy Unknown Verified 06/07/23 09:40 simvastatin Allergy Unknown Verified 06/07/23 09:40 tramadol Allergy Other Verified 06/07/23 09:40 iron AdvReac Mild Vomiting Verified 06/07/23 09:40 gabapentin AdvReac Other Verified 06/07/23 09:40 Family History Father No problems noted. Surgical History H/O coronary artery bypass surgery History of cholecystectomy History of coronary artery stent placement History of knee replacement procedure of left knee History of permanent cardiac pacemaker placement (01/14/21) Social History household members: spouse Smoking Status: Former smoker details: Unknown substance use type: does not use ROS <DEV Ceja - Last Filed: 06/21/23 16:38> ROS ED Constitutional Constitutional ED: Denies chills or fever(s) Eyes Eyes: Denies change in vision Cardiovascular Cardiovascular: Reports chest pain; Denies palpitations or racing heartbeat Respiratory/Chest Respiratory/Chest: Denies cough or dyspnea Gastrointestinal Gastrointestinal: Denies abdominal pain, nausea or vomiting Genitourinary Genitourinary ED: Reports dysuria and urinary frequency; Denies hematuria Musculoskeletal Musculoskeletal: Denies arthralgias or myalgias Integumentary Denies rash Neurologic Neurologic: Denies weakness EXAM <DEV Ceja - Last Filed: 06/21/23 16:38> Physical Exam Const Vital Signs: 06/21/23 10:58 06/21/23 10:59 06/21/23 12:14 Temperature 98.1 F 98.1 F Temperature Source Temporal Temporal Pulse Rate 60 61 Pulse Rate [Lying] Pulse Rate [Sitting (for 1 minute prior to obtaining)] Pulse Rate [Standing (for 1 minute prior to obtaining)] Respiratory Rate 15 15 Blood Pressure 147/70 H 147/70 H Blood Pressure [Lying] Blood Pressure [Sitting (for 1 minute prior to obtaining)] Blood Pressure [Standing (for 1 minute prior to obtaining)] Blood Pressure Mean 95 95 Blood Pressure Mean [Lying] Blood Pressure Mean [Sitting (for 1 minute prior to obtaining)] Blood Pressure Mean [Standing (for 1 minute prior to obtaining)] Pulse Ox 100 100 100 Oxygen Delivery Method Nasal Cannula Room Air Nasal Cannula Oxygen Flow Rate (L/min) 4 06/21/23 11:59 06/21/23 12:41 06/21/23 14:00 Temperature 98.1 F 97.8 F Temperature Source Temporal Oral Pulse Rate 61 65 69 Pulse Rate [Lying] Pulse Rate [Sitting (for 1 minute prior to obtaining)] Pulse Rate [Standing (for 1 minute prior to obtaining)] Respiratory Rate 15 25 H 18 Blood Pressure 147/70 H 185/76 H 146/49 H Blood Pressure [Lying] Blood Pressure [Sitting (for 1 minute prior to obtaining)] Blood Pressure [Standing (for 1 minute prior to obtaining)] Blood Pressure Mean 95 112 81 Blood Pressure Mean [Lying] Blood Pressure Mean [Sitting (for 1 minute prior to obtaining)] Blood Pressure Mean [Standing (for 1 minute prior to obtaining)] Pulse Ox 100 98 97 Oxygen Delivery Method Nasal Cannula Nasal Cannula Nasal Cannula Oxygen Flow Rate (L/min) 4 4 4 06/21/23 14:43 06/21/23 15:54 06/21/23 16:10 Temperature Temperature Source Pulse Rate 60 Pulse Rate [Lying] 60 Pulse Rate [Sitting (for 1 minute prior to obtaining)] 60 Pulse Rate [Standing (for 1 minute prior to obtaining)] 60 Respiratory Rate 15 Blood Pressure 132/65 H Blood Pressure [Lying] 150/42 H Blood Pressure [Sitting (for 1 minute prior to obtaining)] 128/87 H Blood Pressure [Standing (for 1 minute prior to obtaining)] 131/65 H Blood Pressure Mean 87 Blood Pressure Mean [Lying] 78 Blood Pressure Mean [Sitting (for 1 minute prior to obtaining)] 100 Blood Pressure Mean [Standing (for 1 minute prior to obtaining)] 87 Pulse Ox 96 96 Oxygen Delivery Method Nasal Cannula Nasal Cannula Oxygen Flow Rate (L/min) 4 4 Positive well nourished, well developed and no apparent distress General Appearance ED: well developed HEENT Reports normocephalic and head/scalp atraumatic Mouth ED: Yes moist mucous membranes normal Eyes PERRL and EOMs intact bilaterally Neck full ROM and supple Chest Wall inspection of chest normal Resp normal respiratory effort and clear to auscultation bilaterally Cardio regular rate and regular rhythm GI soft to palpation, non-tender, non-distended and no masses Back/Spine normal ROM and normal to inspection Extremity normal to inspection and full ROM Neuro oriented x3, CN's II-XII intact bilaterally, moves all extremities, no focal motor deficits and no sensory deficits noted Sensorium / Orientation: awake and alert Psych mental status grossly normal and thought process normal Skin no rashes or lesions noted and no wounds <Dr. Cristian Oliveira, DO - Last Filed: 06/21/23 16:52> Physical Exam Const Vital Signs: 06/21/23 10:58 06/21/23 10:59 06/21/23 12:14 Temperature 98.1 F 98.1 F Temperature Source Temporal Temporal Pulse Rate 60 61 Pulse Rate [Lying] Pulse Rate [Sitting (for 1 minute prior to obtaining)] Pulse Rate [Standing (for 1 minute prior to obtaining)] Respiratory Rate 15 15 Blood Pressure 147/70 H 147/70 H Blood Pressure [Lying] Blood Pressure [Sitting (for 1 minute prior to obtaining)] Blood Pressure [Standing (for 1 minute prior to obtaining)] Blood Pressure Mean 95 95 Blood Pressure Mean [Lying] Blood Pressure Mean [Sitting (for 1 minute prior to obtaining)] Blood Pressure Mean [Standing (for 1 minute prior to obtaining)] Pulse Ox 100 100 100 Oxygen Delivery Method Nasal Cannula Room Air Nasal Cannula Oxygen Flow Rate (L/min) 4 06/21/23 11:59 06/21/23 12:41 06/21/23 14:00 Temperature 98.1 F 97.8 F Temperature Source Temporal Oral Pulse Rate 61 65 69 Pulse Rate [Lying] Pulse Rate [Sitting (for 1 minute prior to obtaining)] Pulse Rate [Standing (for 1 minute prior to obtaining)] Respiratory Rate 15 25 H 18 Blood Pressure 147/70 H 185/76 H 146/49 H Blood Pressure [Lying] Blood Pressure [Sitting (for 1 minute prior to obtaining)] Blood Pressure [Standing (for 1 minute prior to obtaining)] Blood Pressure Mean 95 112 81 Blood Pressure Mean [Lying] Blood Pressure Mean [Sitting (for 1 minute prior to obtaining)] Blood Pressure Mean [Standing (for 1 minute prior to obtaining)] Pulse Ox 100 98 97 Oxygen Delivery Method Nasal Cannula Nasal Cannula Nasal Cannula Oxygen Flow Rate (L/min) 4 4 4 06/21/23 14:43 06/21/23 15:54 06/21/23 16:10 Temperature Temperature Source Pulse Rate 60 Pulse Rate [Lying] 60 Pulse Rate [Sitting (for 1 minute prior to obtaining)] 60 Pulse Rate [Standing (for 1 minute prior to obtaining)] 60 Respiratory Rate 15 Blood Pressure 132/65 H Blood Pressure [Lying] 150/42 H Blood Pressure [Sitting (for 1 minute prior to obtaining)] 128/87 H Blood Pressure [Standing (for 1 minute prior to obtaining)] 131/65 H Blood Pressure Mean 87 Blood Pressure Mean [Lying] 78 Blood Pressure Mean [Sitting (for 1 minute prior to obtaining)] 100 Blood Pressure Mean [Standing (for 1 minute prior to obtaining)] 87 Pulse Ox 96 96 Oxygen Delivery Method Nasal Cannula Nasal Cannula Oxygen Flow Rate (L/min) 4 4 [facility] <DEV Ceja - Last Filed: 06/21/23 16:38> [facility] Narrative Medical decision making narrative: Patient presenting due to dysuria, increased urinary frequency started a few days ago. He did endorse having a pain across his chest that has been constant for a long time, it does not feel any worse today but is present. He also thinks that he has been passing out but is not completely sure and is very nonspecific regarding the details of this. He reports he will be walking to his bed and will make it to the bed, will lay down on the pillow, and then will pass out but does not think he is falling asleep. Unsure if this is true syncope or not. Patient did request morphine several times, do not feel that this was indicated especially if he truly was having syncopal episodes. Cardiac workup was obtained, overall is unremarkable. I do feel the patient can follow-up as an outpatient and encouraged follow-up with PCP. He does have a UTI, urinary culture obtained, he was given a dose of Rocephin here and IV fluids and will be discharged home on Keflex. Return instructions were given and patient discharged home in stable condition. Lab Data Attestation: I reviewed the patient's lab results. Lab results narrative: H&H 11.5 and 35.9, platelet count 139, BNP 129, positive nitrites, 500 leukocyte esterase, 3+ bacteria, over 100 urine WBCs Labs: Laboratory Results - last 24 hr 06/21/23 06/21/23 06/21/23 12:00 12:05 14:34 WBC 8.3 RBC 3.76 L Hgb 11.5 L Hct 35.9 L MCV 95.5 H MCH 30.6 MCHC 32.0 RDW Std Deviation 50.1 H RDW Coeff of Cinda 14.3 Plt Count 139 L MPV 11.1 Immature Gran % (Auto) 0.400 Neut % (Auto) 84.7 H Lymph % (Auto) 8.6 L Cobb % (Auto) 5.2 Eos % (Auto) 1.0 Baso % (Auto) 0.1 Absolute Neuts (auto) 7.1 Absolute Lymphs (auto) 0.72 L Nucleated RBC % 0 Sodium 137 Potassium 4.6 Chloride 102 Carbon Dioxide 31.0 Anion Gap 4 L BUN 18 Creatinine 1.02 Estim Creat Clear Calc 79.69 Est GFR (MDRD) Af Amer 92 Est GFR (MDRD) Non-Af 76 BUN/Creatinine Ratio 17.6 Glucose 164 H Calcium 9.0 Troponin I High Sens 14 13 B-Natriuretic Peptide 129.6 H Urine Color Yellow Urine Clarity Cloudy Urine pH 7.0 Ur Specific [place] 1.010 Urine Protein 100 H Urine Glucose (UA) 1000 H Urine Ketones 5 H Urine Occult Blood 250 H Urine Nitrite Positive H Urine Bilirubin Negative Urine Urobilinogen Normal Ur Leukocyte Esterase 500 H Urine RBC 0 SEEN Urine WBC >100 SEEN Ur Squamous Epith Cells 0 SEEN Urine Bacteria 3+ Urine Mucus 0 SEEN Radiography X-Ray: Read by ED Physician Diagnostic Testing: Clinical Impression(s) from Imaging Studies Chest X-Ray 06/21/23 12:20 IMPRESSION: 1. No suspicious acute cardiopulmonary pathology considering rotated chest positioning. 2. No interval change. Electronically Signed: Adolfo Castro MD at 12:35 EDT , <Dr. Cristian Oliveira, DO - Last Filed: 06/21/23 16:52> [facility] Narrative Medical decision making narrative: Patient presenting due to dysuria, increased urinary frequency started a few days ago. He did endorse having a pain across his chest that has been constant for a long time, it does not feel any worse today but is present. He also thinks that he has been passing out but is not completely sure and is very non specific regarding the details of this. He reports he will be walking to his bed and will make it to the bed, will lay down on the pillow, and then will pass out but does not think he is falling asleep. Unsure if this is true syncope or not. Patient did request morphine several times, do not feel that this was indicated especially if he truly was having syncopal episodes. Cardiac workup was obtained, overall is unremarkable. I do feel the patient can follow-up as an outpatient and encouraged follow-up with PCP. He does have a UTI, urinary culture obtained, he was given a dose of Rocephin here and IV fluids and will be discharged home on Keflex. Return instructions were given and patient discharged home in stable condition. This patient was seen with a PA/[employer]PARTMENT [employer] Individually assessed they patient including history and physical. I have reviewed everything on the chart that is available and agree with the documentation provided by the PA/DEPARTMENT [employer] including discussion about the assessment, treatment plan, discussion, and return precautions. Patient presenting with UTI symptoms. He also is stating he is having chest pain and feeling lightheaded. He has had this frequently and has multiple visits for the same. His states she is never actually witnessed him fainting but she says she thought she heard him fall onto the bed. This could also be just the patient laying down for sleep. He has not fallen to the floor. His cardiac workup was negative. His urinalysis was consistent with UTI. Chest x-ray my interpretation showed no acute process. His EKG was sinus rhythm at without any evidence of ischemia. Patient requested morphine while he was here but I do not think it is necessary especially in the sense that the patient stated he is lightheaded. We did orthostatic vitals which are technically positive however his starting blood pressure was higher than he had since has been here. He was given IV fluids and ambulated and he felt stable and therefore he was discharged home with prescription for Keflex. He was given Rocephin while he was here. Return precautions discussed. Lab Data Labs: Laboratory Results - last 24 hr 06/21/23 06/21/23 06/21/23 12:00 12:05 14:34 WBC 8.3 RBC 3.76 L Hgb 11.5 L Hct 35.9 L MCV 95.5 H MCH 30.6 MCHC 32.0 RDW Std Deviation 50.1 H RDW Coeff of Cinda 14.3 Plt Count 139 L MPV 11.1 Immature Gran % (Auto) 0.400 Neut % (Auto) 84.7 H Lymph % (Auto) 8.6 L Cobb % (Auto) 5.2 Eos % (Auto) 1.0 Baso % (Auto) 0.1 Absolute Neuts (auto) 7.1 Absolute Lymphs (auto) 0.72 L Nucleated RBC % 0 Sodium 137 Potassium 4.6 Chloride 102 Carbon Dioxide 31.0 Anion Gap 4 L BUN 18 Creatinine 1.02 Estim Creat Clear Calc 79.69 Est GFR (MDRD) Af Amer 92 Est GFR (MDRD) Non-Af 76 BUN/Creatinine Ratio 17.6 Glucose 164 H Calcium 9.0 Troponin I High Sens 14 13 B-Natriuretic Peptide 129.6 H Urine Color Yellow Urine Clarity Cloudy Urine pH 7.0 Ur Specific [place] 1.010 Urine Protein 100 H Urine Glucose (UA) 1000 H Urine Ketones 5 H Urine Occult Blood 250 H Urine Nitrite Positive H Urine Bilirubin Negative Urine Urobilinogen Normal Ur Leukocyte Esterase 500 H Urine RBC 0 SEEN Urine WBC >100 SEEN Ur Squamous Epith Cells 0 SEEN Urine Bacteria 3+ Urine Mucus 0 SEEN Radiography Diagnostic Testing: Clinical Impression(s) from Imaging Studies Chest X-Ray 06/21/23 12:20 IMPRESSION: 1. No suspicious acute cardiopulmonary pathology considering rotated chest positioning. 2. No interval change. Electronically Signed: Adolfo Castro MD at 12:35 EDT , Discharge Plan Triage Chief Complaint: Complaint ED Midlevel Provider: Yulissa Chase ED Provider: Cristian Oliveira Dx/Rx/DC Orders Clinical Impression: UTI (urinary tract infection), COPD (chronic obstructive pulmonary disease), History of CAD (coronary artery disease) Instructions: ED Bladder Infection, Male (Adult) Prescriptions: New cephalexin 500 mg capsule 500 mg PO Q6 Qty: 40 0RF No Action clopidogrel [Plavix] 75 mg tablet 75 mg PO DAILY levetiracetam 500 mg tablet 500 mg PO BID atorvastatin 80 MG tablet 80 mg PO QHS aspirin 81 MG tablet 81 mg PO DAILY finasteride 5 MG tablet 5 mg PO DAILY escitalopram oxalate 10 MG tablet 10 mg PO DAILY Humulin R U-500 (Conc) Kwikpen 500 unit/mL (3 mL) insulin pen See Rx Instructions subcut BID Rx Instructions: 115 units with breakfast; 105 units with dinner nitroglycerin 0.4 MG tablet, sublingual 0.4 mg sublingual Q5M PRN (Reason: CHEST PAIN ) Qty: 30 0RF pantoprazole 40 MG tablet 40 mg PO BID carvedilol 25 MG tablet 25 mg PO BID ranolazine 500 mg Tablet Extended Release 12 Hr 500 mg PO Q12H tamsulosin 0.4 MG capsule 0.4 mg PO QHS magnesium oxide 420 mg Tablet 420 mg PO BID ketoconazole 2 % Shampoo 1 applic TOPICAL DAILY albuterol sulfate 2.5 mg /3 mL (0.083 %) Solution For Nebulization 2.5 mg INHALATION Q6H PRN (Reason: SHORTNESS OF BREATH/WHEEZING ) multivitamin with minerals Tablet 1 tab PO DAILY spironolactone [Aldactone] 25 mg tablet 25 mg PO DAILY acetaminophen [Tylenol] 325 MG tablet 650 mg PO 4X/DAY PRN (Reason: PAIN ) cyclobenzaprine 10 mg tablet 10 mg PO BID PRN (Reason: MUSCLE SPASMS) Jardiance 25 mg tablet 25 mg PO DAILY carboxymethylcellulose sodium 0.5 % drops 1 drp EACH EYE TID PRN (Reason: EYE DRYNESS ) guaifenesin 100 mg/5 mL liquid 200 mg PO TID PRN (Reason: CONGESTION ) cholecalciferol (vitamin D3) [D3-2000] 50 mcg (2,000 unit) capsule 100 mcg PO DAILY Breztri Aerosphere 160-9-4.8 mcg/actuation HFA aerosol inhaler 2 inh inhalation BID Patient Comments: PT STATES THEY HAVE THE INHALER BUT IT DOES NOT WORK WELL FOR THEM Rx Instructions: RINSE MOUTH AFTER USE furosemide 40 mg Tablet 40 mg PO BID Qty: 0 0RF guaifenesin 600 mg tablet extended release 12hr 1,200 mg PO Q12H PRN (Reason: COUGH/CONGESTION ) Qty: 120 11RF [facility] [Primary Care Provider] - Activity Restrictions/Additional Instructions: Take antibiotics as prescribed and return for any worsening of your symptoms. Follow-up with your PCP in the next 5 to 7 days. Disposition Disposition: Home, Self Care
[2023-06-21 12:18] LABS: Mucous, Urine 0 SEEN /hpf (<or=2+); Red Blood Cells-Urine 0 SEEN /hpf (0-5); Squamous Epithelial Cells - UA 0 SEEN /hpf (0-5)
--- NOTE | 2023-06-21 12:20 | RAD_ITS ---
EXAM: XR CHEST, 2 VIEWS CLINICAL INDICATION: chest pain TECHNIQUE: Frontal and lateral views of the chest. COMPARISON: 06/19/2023. FINDINGS: LUNGS AND PLEURAL SPACES: Unremarkable. No consolidation or edema. No pneumothorax. No effusion. HEART: Cardiomegaly is unchanged. MEDIASTINUM: Central airways and mediastinal contour are unremarkable. BONES/JOINTS: Old fracture deformity of the right clavicle is unchanged. SOFT TISSUES: Unremarkable. LYMPH NODES: Metallic chain with transfixing screws screws along the left lateral third, fourth, fifth, sixth and seventh ribs are unchanged. TUBES, LINES AND DEVICES: Multiple pacing lead tips remain in the right atrium, right ventricle and a branch of the left coronary sinus. RAD/Chest PA and Lateral IMPRESSION: 1. No suspicious acute cardiopulmonary pathology considering rotated chest positioning. 2. No interval change. Electronically Signed: Adolfo Castro MD at 12:35 EDT ,
[2023-06-21 12:26] LABS: Color, Urine Yellow (Yellow); Glucose, Dipstick 1000 mg/dl (Normal); Ketone-Dipstick 5 mg/dl (Negative); Leukocyte Esterase-Dipstick 500 /ul (Negative); Nitrite-Dipstick Positive (Negative); Occult Blood-Urine 250 /ul (Negative); Protein-Dipstick 100 mg/dl (Negative); Urine Bilirubin Dipstick Negative (Negative); Urine Clarity Cloudy (Clear); Urine Urobilinogen Normal (Normal)
[2023-06-21 12:26] LABS: Absolute Lymphocyte Count 0.72 X10^3/uL (0.83-4.51); Absolute Neutrophil Count 7.1 X10^3/uL (2.0-7.7); Basophil# 0.01 X10^3/uL; Basophil% 0.1 % (0-1); Eosinophil# 0.08 X10^3/uL; Hematocrit 35.9 % (40-54); Hemoglobin 11.5 g/dL (13.0-16.5); Lymphocyte # 0.72 X10^3/ul (0.83-4.51); Lymphocyte % 8.6 % (19-41); Mean Corpuscular Hgb 30.6 pg (27.0-32.0); Mean Corpuscular Volume 95.5 fL (80-94); Mean Platelet Vol. 11.1 fl (6.2-12.0); Monocyte# 0.43 X10^3/uL; Monocyte% 5.2 % (0-10); NRBC Flagged by Analyzer 0 % (0-5); Neutrophil # 7.06 X10^3/uL (2.7-7.7); Neutrophil % 84.7 % (47-70); Platelet Count 139 K/mm3 (150-450); RBC Distribution Width CV 14.3 % (11.6-14.6); RBC Distribution Width SD 50.1 fl (35.1-43.9); Red Blood Count 3.76 M/mm3 (4.6-6.2); White Blood Count 8.3 K/mm3 (4.4-11.0)
[2023-06-21 12:35] LABS: Bacteria 3+ /hpf (None Seen); White Blood Cells >100 SEEN /hpf (0-5)
[2023-06-21 12:36] LABS: Anion Gap 4 (5-15); BUN 18 mg/dL (7-18); BUN/Creat Ratio 17.6 RATIO (10-20); Chloride 102 mmol/L (98-107); Creatinine, Serum 1.02 mg/dL (0.70-1.30); EST Glomerular Filtration Rate 76 mL/min (>60); Est Glom Filt Rate - Afr Amer 92 mL/min (>60); Estimated Creatinine Clearance 79.69 ml/min; Glucose 164 mg/dL (74-106); Potassium 4.6 mmol/L (3.5-5.1); Sodium Level 137 mmol/L (136-145); Troponin-I HS (w/2H Reflex) 14 pg/mL (3.0-78.0)
[2023-06-21] MEDS: Ceftriaxone 1 GM/50 ML BAG IV (12:45)
[2023-06-21] MEDS: Acetaminophen 325 MG Tablet 650 MG PO (12:45)
[2023-06-21 12:56] LABS: BNP,B-Type NATRIURETIC PEPTIDE 129.6 pg/mL (0-100)
[2023-06-21 14:16] LABS: Reflex Troponin-HS? (from REC) Y
[2023-06-21 14:58] LABS: Troponin-I HS 13 pg/mL (3.0-78.0)
[2023-06-21] MEDS: 0.9% Normal Saline (500mL Bag) 500 ML 999 ML IV (15:23)
== END 2023-06-21 16:50 | disposition home or self-care (01) ==
PROVIDERS: Physician Assistant; Emergency Provider Student in an Organized Health Care Education/Training Program; Visit Provider Student in an Organized Health Care Education/Training Program
DX: N39.0 Urinary tract infection, site not specified (principal); I11.0 Hypertensive heart disease with heart failure; I50.9 Heart failure, unspecified; J44.9 Chronic obstructive pulmonary disease, unspecified; E11.9 Type 2 diabetes mellitus without complications; Z79.4 Long term (current) use of insulin; I25.10 Atherosclerotic heart disease of native coronary artery without angina pectoris; Z87.891 Personal history of nicotine dependence; Z99.81 Dependence on supplemental oxygen; Z86.73 Personal history of transient ischemic attack (TIA), and cerebral infarction without residual deficits; G47.33 Obstructive sleep apnea (adult) (pediatric); E78.5 Hyperlipidemia, unspecified; Z95.0 Presence of cardiac pacemaker; I25.2 Old myocardial infarction; Z79.82 Long term (current) use of aspirin; Z79.899 Other long term (current) drug therapy; Z79.51 Long term (current) use of inhaled steroids; Z90.49 Acquired absence of other specified parts of digestive tract; Z95.5 Presence of coronary angioplasty implant and graft; Z96.652 Presence of left artificial knee joint
CPT/HCPCS: 71046; 80048; 81001; 83880; 84484; 85025; 87077; 87086; 87088; 87186; 93005; 96361; 96365; 99285; J7040; J7050; A4216

== ENCOUNTER 2023-07-12 11:10 | Emergency (ER) | payer OTHER, SELFPAY ==
[2023-07-12 11:10] VITALS: BP 138/57; PULSE 72; RESP 19; TEMP 35.8; O2SAT 100
[2023-07-12 11:32] LABS: Mucous, Urine 0 SEEN /hpf (<or=2+); Red Blood Cells-Urine 0 SEEN /hpf (0-5); Squamous Epithelial Cells - UA 0 SEEN /hpf (0-5)
[2023-07-12 11:39] LABS: Color, Urine Yellow (Yellow); Glucose, Dipstick 1000 mg/dl (Normal); Ketone-Dipstick Negative (Negative); Leukocyte Esterase-Dipstick 500 /ul (Negative); Nitrite-Dipstick Positive (Negative); Occult Blood-Urine 150 /ul (Negative); Protein-Dipstick 100 mg/dl (Negative); Specific Gravity, Urine 1.015 (1.002-1.030); Urine Bilirubin Dipstick Negative (Negative); Urine Clarity Cloudy (Clear); Urine Urobilinogen Normal (Normal)
--- NOTE | 2023-07-12 11:53 | EDS_ITS ---
HPI History of Present Illness Chief Complaint: Complaint Narrative Narrative: 73-year-old male presenting with dysuria and urinary frequency. Onset was last night. Denies any systemic signs or symptoms. Otherwise feeling well. Recently had UTI treated with Keflex and feels that his UTI had cleared up until yesterday. Denies any back pain or flank pain. Denies abdominal pain. [facility] Medical History Left-sided weakness Chest pain Syncope DNR (do not resuscitate) DNR (do not resuscitate) discussion Heart failure EKATERINA (obstructive sleep apnea) Anemia Chronic hyperglycemia History of TIAs Conversion reaction Sick sinus syndrome Pacemaker battery depletion Hemiparesis, left Former smoker On home oxygen therapy Pacemaker Congestive heart failure (CHF) Myocardial infarct Chest pain Pulmonary embolism Dysarthria BiPAP (biphasic positive airway pressure) dependence Wears hearing aid in both ears Diabetes Stroke/cerebrovascular accident COPD (chronic obstructive pulmonary disease) History of fractured rib CAD (coronary artery disease) Essential (primary) hypertension Atherosclerotic heart disease [place] coronary artery w/angina pectoris EKATERINA (obstructive sleep apnea) Abnormal EKG DM type 2 (diabetes mellitus, type 2) Chronic respiratory failure Obesity Hyperlipidemia Home Medications ?Medication ?Instructions ?Recorded ?Last Taken ?Type aspirin 81 mg tablet,delayed 81 mg PO DAILY HEART HEALTH 06/11/18 03/03/23 History release atorvastatin 80 mg tablet 80 mg PO QHS CHOLESTEROL 06/11/18 03/03/23 History escitalopram oxalate 10 mg tablet 10 mg PO DAILY DEPRESSION 06/11/18 03/03/23 History finasteride 5 mg tablet 5 mg PO DAILY PROSTATE 06/11/18 03/03/23 History nitroglycerin 0.4 mg sublingual 0.4 mg sublingual Q5M PRN CHEST 07/22/18 01/17/20 Rx tablet PAIN #30 TABLETS pantoprazole 40 mg tablet,delayed 40 mg PO BID GERD 05/18/20 03/03/23 History release carvedilol 25 mg tablet 25 mg PO BID BLOOD PRESSURE 06/22/20 03/03/23 History ranolazine 500 mg tablet,extended 500 mg PO Q12H CHEST PAIN 06/22/20 03/03/23 History release,12 hr tamsulosin 0.4 mg capsule 0.4 mg PO QHS PROSTATE 08/10/20 03/03/23 History clopidogrel 75 mg tablet (Plavix) 75 mg PO DAILY BLOOD THINNER 01/07/21 03/03/23 History albuterol sulfate 2.5 mg/3 mL 2.5 mg inhalation Q6H PRN 12/12/21 03/03/23 History (0.083 %) solution for nebulization SHORTNESS OF BREATH/WHEEZING ketoconazole 2 % shampoo 1 applic topical DAILY DRY SCALP 12/12/21 03/03/23 History magnesium oxide 420 mg tablet 420 mg PO BID SUPPLEMENT 12/12/21 03/03/23 History multivitamin with minerals 1 tab PO DAILY SUPPLEMENT 12/12/21 03/03/23 History spironolactone 25 mg tablet 25 mg PO DAILY BLOOD PRESSURE 09/10/22 03/03/23 History (Aldactone) guaifenesin 600 mg tablet, 1,200 mg (2 x 600 mg) PO Q12H PRN 11/17/22 03/03/23 Rx extended release 12 hr COUGH/CONGESTION #120 tabs acetaminophen 325 mg tablet 650 mg PO 4X/DAY PRN PAIN 01/27/23 03/03/23 History (Tylenol) cyclobenzaprine 10 mg tablet 10 mg PO BID PRN MUSCLE SPASMS 01/27/23 03/03/23 History budesonide 160 mcg-glycopyr 9 2 inh inhalation BID SHORTNESS OF 03/04/23 03/03/23 History mcg-formot 4.8 mcg/actuation HFA BREATH inhaler (Breztri Aerosphere) carboxymethylcellulose sodium 0.5 1 drp EACH EYE TID PRN EYE DRYNESS 03/04/23 03/03/23 History % eye drops cholecalciferol (vitamin D3) 50 100 mcg PO DAILY SUPPLEMENT 03/04/23 03/03/23 History mcg (2,000 unit) capsule (D3-2000) empagliflozin 25 mg tablet 25 mg PO DAILY DIABETES 03/04/23 03/03/23 History (Jardiance) guaifenesin 100 mg/5 mL oral liquid 200 mg PO TID PRN CONGESTION 03/04/23 03/03/23 History insulin regular hum U-500 conc 500 See Rx Instructions subcut BID 05/27/23 Unknown History unit/mL(3 mL) subcut pen (Humulin DIABETES R U-500 (Conc) Insulin Kwikpen) levetiracetam 500 mg tablet 500 mg PO BID 05/27/23 Unknown History furosemide 40 mg tablet 40 mg PO BID EDEMA #0 tabs 06/07/23 03/03/23 Rx cephalexin 500 mg capsule 500 mg PO Q6 #40 CAPSULES 06/21/23 Unknown Rx ciprofloxacin HCl 500 mg tablet 500 mg PO BID #14 TABLETS 07/12/23 Unknown Rx phenazopyridine 100 mg tablet 100 mg PO TID PRN pain 6 doses #6 07/12/23 Unknown Rx (Pyridium) tabs Allergy/AdvReac Type Severity Reaction Status Date / Time ezetimibe Allergy Unknown Verified 06/07/23 09:40 Fish Containing Products Allergy Unknown Verified 06/07/23 09:40 glyburide Allergy Unknown Verified 06/07/23 09:40 isosorbide Allergy PT UNSURE Verified 06/07/23 09:40 OF REACTION lisinopril Allergy Unknown Verified 06/07/23 09:40 metformin Allergy Nausea Verified 06/07/23 09:40 metoprolol Allergy Unknown Verified 06/07/23 09:40 simvastatin Allergy Unknown Verified 06/07/23 09:40 tramadol Allergy Other Verified 06/07/23 09:40 iron AdvReac Mild Vomiting Verified 06/07/23 09:40 gabapentin AdvReac Other Verified 06/07/23 09:40 Family History Father No problems noted. Surgical History History of cholecystectomy History of knee replacement procedure of left knee History of permanent cardiac pacemaker placement (01/14/21) H/O coronary artery bypass surgery History of coronary artery stent placement Social History household members: spouse Smoking Status: Former smoker details: Unknown substance use type: does not use ROS ROS ED Constitutional Constitutional ED: Denies chills, fever(s) or sweats Eyes Eyes: Denies blurry vision or change in vision ENT ENT ED: Denies ear pain or sore throat Cardiovascular Cardiovascular: Denies chest pain, palpitations or racing heartbeat Respiratory/Chest Respiratory/Chest: Denies cough, dyspnea or sputum Gastrointestinal Gastrointestinal: Denies abdominal pain, constipation, diarrhea, nausea or vomiting Genitourinary Genitourinary ED: Reports dysuria and urinary frequency; Denies hematuria Musculoskeletal Musculoskeletal: Denies arthralgias, myalgias or neck pain Integumentary Denies abscess, Abrasions or rash Neurologic Neurologic: Denies headache(s), paresthesias or weakness Psychiatric Psychiatric: Denies anxiety, depression, suicidal ideation or suicidal thoughts Endocrine Endocrinology: Denies polydipsia or polyuria EXAM Physical Exam Const Vital Signs: 07/12/23 11:10 Temperature 96.5 F L Temperature Source Temporal Pulse Rate 72 Respiratory Rate 19 H Blood Pressure 138/57 H Blood Pressure Mean 84 Pulse Ox 100 Oxygen Delivery Method Nasal Cannula Oxygen Flow Rate (L/min) 4 Positive well nourished HEENT Reports moist mucous membranes normocephalic and atraumatic Resp normal respiratory effort Cardio regular rate and regular rhythm Neuro oriented x3 and CN's II-XII intact bilaterally Sensorium / Orientation: alert Motor Exam: strength 5/5 throughout Psych mental status grossly normal MDM MDM MDM Narrative Medical decision making narrative: 73-year-old male presenting with urinary symptoms. Urinalysis consistent with UTI. Patient will be started on Cipro as his last urine culture showed he was pansensitive. He was on ceftriaxone thought this could gone away but is now saying he is unsure. No systemic signs or symptoms. Vital signs are stable he is afebrile. Patient also given prescription for Pyridium. Return precautions discussed. Impression: 1. UTI Lab Data Attestation: I reviewed the patient's lab results. Labs: Laboratory Results - last 24 hr 07/12/23 11:25 Urine Color Yellow Urine Clarity Cloudy Urine pH 6.0 Ur Specific [place] 1.015 Urine Protein 100 H Urine Glucose (UA) 1000 H Urine Ketones Negative Urine Occult Blood 150 H Urine Nitrite Positive H Urine Bilirubin Negative Urine Urobilinogen Normal Ur Leukocyte Esterase 500 H Discharge Plan Triage Chief Complaint: Complaint ED Provider: Cristian Oliveira Dx/Rx/DC Orders Instructions: ED Bladder Infection, Male (Adult) Prescriptions: New ciprofloxacin HCl 500 mg tablet 500 mg PO BID Qty: 14 0RF phenazopyridine [Pyridium] 100 mg tablet 100 mg PO TID PRN (Reason: pain) Qty: 6 0RF No Action clopidogrel [Plavix] 75 mg tablet 75 mg PO DAILY levetiracetam 500 mg tablet 500 mg PO BID atorvastatin 80 MG tablet 80 mg PO QHS aspirin 81 MG tablet 81 mg PO DAILY finasteride 5 MG tablet 5 mg PO DAILY escitalopram oxalate 10 MG tablet 10 mg PO DAILY Humulin R U-500 (Conc) Kwikpen 500 unit/mL (3 mL) insulin pen See Rx Instructions subcut BID Rx Instructions: 115 units with breakfast; 105 units with dinner nitroglycerin 0.4 MG tablet, sublingual 0.4 mg sublingual Q5M PRN (Reason: CHEST PAIN ) Qty: 30 0RF pantoprazole 40 MG tablet 40 mg PO BID carvedilol 25 MG tablet 25 mg PO BID ranolazine 500 mg Tablet Extended Release 12 Hr 500 mg PO Q12H tamsulosin 0.4 MG capsule 0.4 mg PO QHS magnesium oxide 420 mg Tablet 420 mg PO BID ketoconazole 2 % Shampoo 1 applic TOPICAL DAILY albuterol sulfate 2.5 mg /3 mL (0.083 %) Solution For Nebulization 2.5 mg INHALATION Q6H PRN (Reason: SHORTNESS OF BREATH/WHEEZING ) multivitamin with minerals Tablet 1 tab PO DAILY spironolactone [Aldactone] 25 mg tablet 25 mg PO DAILY acetaminophen [Tylenol] 325 MG tablet 650 mg PO 4X/DAY PRN (Reason: PAIN ) cyclobenzaprine 10 mg tablet 10 mg PO BID PRN (Reason: MUSCLE SPASMS) Jardiance 25 mg tablet 25 mg PO DAILY carboxymethylcellulose sodium 0.5 % drops 1 drp EACH EYE TID PRN (Reason: EYE DRYNESS ) guaifenesin 100 mg/5 mL liquid 200 mg PO TID PRN (Reason: CONGESTION ) cholecalciferol (vitamin D3) [D3-2000] 50 mcg (2,000 unit) capsule 100 mcg PO DAILY Breztri Aerosphere 160-9-4.8 mcg/actuation HFA aerosol inhaler 2 inh inhalation BID Patient Comments: PT STATES THEY HAVE THE INHALER BUT IT DOES NOT WORK WELL FOR THEM Rx Instructions: RINSE MOUTH AFTER USE furosemide 40 mg Tablet 40 mg PO BID Qty: 0 0RF cephalexin 500 mg capsule 500 mg PO Q6 Qty: 40 0RF guaifenesin 600 mg tablet extended release 12hr 1,200 mg PO Q12H PRN (Reason: COUGH/CONGESTION ) Qty: 120 11RF [facility]: [facility] [Primary Care Provider] - Print Language: Vietnamese Disposition Disposition: Home, Self Care
[2023-07-12] MEDS: Phenazopyridine 95 MG Tablet PO (11:55)
[2023-07-12] MEDS: Ciprofloxacin 500 MG Tablet PO (11:55)
[2023-07-12 12:16] LABS: Bacteria 2+ /hpf (None Seen); White Blood Cells >100 SEEN /hpf (0-5)
== END 2023-07-12 11:58 | disposition home or self-care (01) ==
PROVIDERS: Emergency Provider Student in an Organized Health Care Education/Training Program; Visit Provider Student in an Organized Health Care Education/Training Program
DX: N39.0 Urinary tract infection, site not specified (principal); I11.0 Hypertensive heart disease with heart failure; I50.9 Heart failure, unspecified; J44.9 Chronic obstructive pulmonary disease, unspecified; E11.9 Type 2 diabetes mellitus without complications; Z87.891 Personal history of nicotine dependence; Z95.0 Presence of cardiac pacemaker; I25.2 Old myocardial infarction; I25.10 Atherosclerotic heart disease of native coronary artery without angina pectoris; G47.33 Obstructive sleep apnea (adult) (pediatric); E78.5 Hyperlipidemia, unspecified; Z79.82 Long term (current) use of aspirin; Z79.899 Other long term (current) drug therapy; Z79.02 Long term (current) use of antithrombotics/antiplatelets; Z90.49 Acquired absence of other specified parts of digestive tract; Z96.652 Presence of left artificial knee joint; Z95.5 Presence of coronary angioplasty implant and graft
CPT/HCPCS: 81001; 99283

== ENCOUNTER 2023-07-19 21:31 | Emergency (ER) | payer OTHER, SELFPAY ==
[2023-07-19 21:33] VITALS: BP 147/59; PULSE 61; RESP 20; TEMP 36.3; O2SAT 100
[2023-07-19 21:39] VITALS: BMI 35.8
[2023-07-19 21:41] VITALS: O2SAT 99
--- NOTE | 2023-07-19 21:55 | EKG12_ITS ---
Test Reason : SOB Blood Pressure : / mmHG Vent. Rate : 061 BPM Atrial Rate : 061 BPM P-R Int : 000 ms QRS Dur : 140 ms QT Int : 524 ms P-R-T Axes : 092 180 122 degrees QTc Int : 527 ms Ventricular-paced rhythm Biventricular pacemaker detected Abnormal ECG Confirmed by PADILLA GUALLPA, CALI ([id number]), film or videotape editor KENDALL ROCHE ([id number]) on 07/21/2023 2:05:28 PM Referred By: Confirmed By:CALI CAUSEY MD
--- NOTE | 2023-07-19 21:58 | EDS_ITS ---
HPI History of Present Illness Chief Complaint: Shortness of Breath Detail of Chief Complaint: Shortness of breath. Patient is not a good informant. Informant: patient and spouse/S.O. Onset/Context/Timing Onset: Today Context: gradual Timing: Continuous and Waxes and wanes Quality: Positive for Dyspnea on exertion and Orthopnea (Patient is stable 1-2 pillow orthopnea.); Negative for PND or Wheezing Current Severity: Mild Maximum Severity: Moderate Worsened by: Exertion and Coughing; Not Worsened By Lying flat Relieved by: Nothing; Not Relieved By Oxygen (Patient is on 4 L of oxygen by nasal cannula continuously.) Associated Symptoms cough, fever, subjective and other; Negative for rhinorrhea, post nasal drip, ear pain, sore throat, chills or sweats Chest Pain: Positive for None Narrative Narrative: Patient is a 73-year-old man who is a poor informant. He has difficulty expressing his thoughts. He does have a history of congestive heart failure, COPD, chronic hypoxemic respiratory failure requiring 4 L of oxygen by nasal cannula, obstructive sleep apnea and had recent replacement of his AICD/pacemaker, May 2023. Patient presents because of shortness of breath. He has stable 1-2 pillow orthopnea. states his ankles this morning were little more swollen than normal and she gave him an extra dose of Lasix. He denies objective fever. Because of subjective fever. Has chills. Denies headache, visual, ocular auditory symptoms. He denies rhinorrhea, congestion postnasal drip sore throat. He does endorse cough and productive cough. When asked what color his response was I do not know . Patient denies chest pain of any type. Patient denies leg pain or discoloration. Patient's abdomen feels bloated. He denies nausea, vomiting or diarrhea. He denies black or maroon stool. He is on Plavix and aspirin. Review of patient's medications would indicate that he has a history of type 2 diabetes requiring insulin, GERD and BPH. PE Risk Factors: Negative for Cancer, OCP + Smoking + > 35, Prior DVT or PE, Recent immobilization, Recent surgery or Recent travel Prior similar symptoms: Yes (CHF and COPD) Recent Illness/Hospitalization: Yes [facility] Medical History Left-sided weakness Chest pain Syncope DNR (do not resuscitate) DNR (do not resuscitate) discussion Heart failure EKATERINA (obstructive sleep apnea) Anemia Chronic hyperglycemia History of TIAs Conversion reaction Sick sinus syndrome Pacemaker battery depletion Hemiparesis, left Former smoker On home oxygen therapy Pacemaker Congestive heart failure (CHF) Myocardial infarct Chest pain Pulmonary embolism Dysarthria BiPAP (biphasic positive airway pressure) dependence Wears hearing aid in both ears Diabetes Stroke/cerebrovascular accident COPD (chronic obstructive pulmonary disease) History of fractured rib CAD (coronary artery disease) Essential (primary) hypertension Atherosclerotic heart disease [place] coronary artery w/angina pectoris EKATERINA (obstructive sleep apnea) Abnormal EKG DM type 2 (diabetes mellitus, type 2) Chronic respiratory failure Obesity Hyperlipidemia Home Medications ?Medication ?Instructions ?Recorded ?Last Taken ?Type aspirin 81 mg tablet,delayed 81 mg PO DAILY HEART HEALTH 06/11/18 03/03/23 History release atorvastatin 80 mg tablet 80 mg PO QHS CHOLESTEROL 06/11/18 03/03/23 History escitalopram oxalate 10 mg tablet 10 mg PO DAILY DEPRESSION 06/11/18 03/03/23 History finasteride 5 mg tablet 5 mg PO DAILY PROSTATE 06/11/18 03/03/23 History nitroglycerin 0.4 mg sublingual 0.4 mg sublingual Q5M PRN CHEST 07/22/18 01/17/20 Rx tablet PAIN #30 TABLETS pantoprazole 40 mg tablet,delayed 40 mg PO BID GERD 05/18/20 03/03/23 History release carvedilol 25 mg tablet 25 mg PO BID BLOOD PRESSURE 06/22/20 03/03/23 History ranolazine 500 mg tablet,extended 500 mg PO Q12H CHEST PAIN 06/22/20 03/03/23 History release,12 hr tamsulosin 0.4 mg capsule 0.4 mg PO QHS PROSTATE 08/10/20 03/03/23 History clopidogrel 75 mg tablet (Plavix) 75 mg PO DAILY BLOOD THINNER 01/07/21 03/03/23 History albuterol sulfate 2.5 mg/3 mL 2.5 mg inhalation Q6H PRN 12/12/21 03/03/23 History (0.083 %) solution for nebulization SHORTNESS OF BREATH/WHEEZING ketoconazole 2 % shampoo 1 applic topical DAILY DRY SCALP 12/12/21 03/03/23 History magnesium oxide 420 mg tablet 420 mg PO BID SUPPLEMENT 12/12/21 03/03/23 History multivitamin with minerals 1 tab PO DAILY SUPPLEMENT 12/12/21 03/03/23 History spironolactone 25 mg tablet 25 mg PO DAILY BLOOD PRESSURE 09/10/22 03/03/23 History (Aldactone) guaifenesin 600 mg tablet, 1,200 mg (2 x 600 mg) PO Q12H PRN 11/17/22 03/03/23 Rx extended release 12 hr COUGH/CONGESTION #120 tabs acetaminophen 325 mg tablet 650 mg PO 4X/DAY PRN PAIN 01/27/23 03/03/23 History (Tylenol) cyclobenzaprine 10 mg tablet 10 mg PO BID PRN MUSCLE SPASMS 01/27/23 03/03/23 History budesonide 160 mcg-glycopyr 9 2 inh inhalation BID SHORTNESS OF 03/04/23 03/03/23 History mcg-formot 4.8 mcg/actuation HFA BREATH inhaler (Breztri Aerosphere) carboxymethylcellulose sodium 0.5 1 drp EACH EYE TID PRN EYE DRYNESS 03/04/23 03/03/23 History % eye drops cholecalciferol (vitamin D3) 50 100 mcg PO DAILY SUPPLEMENT 03/04/23 03/03/23 History mcg (2,000 unit) capsule (D3-2000) empagliflozin 25 mg tablet 25 mg PO DAILY DIABETES 03/04/23 03/03/23 History (Jardiance) guaifenesin 100 mg/5 mL oral liquid 200 mg PO TID PRN CONGESTION 03/04/23 03/03/23 History insulin regular hum U-500 conc 500 See Rx Instructions subcut BID 05/27/23 Unknown History unit/mL(3 mL) subcut pen (Humulin DIABETES R U-500 (Conc) Insulin Kwikpen) levetiracetam 500 mg tablet 500 mg PO BID 05/27/23 Unknown History cephalexin 500 mg capsule 500 mg PO Q6 #40 CAPSULES 06/21/23 Unknown Rx ciprofloxacin HCl 500 mg tablet 500 mg PO BID #14 TABLETS 07/12/23 Unknown Rx phenazopyridine 100 mg tablet 100 mg PO TID PRN pain 6 doses #6 07/12/23 Unknown Rx (Pyridium) tabs furosemide 40 mg tablet 40 mg PO DAILY EDEMA 07/19/23 Unknown History Allergy/AdvReac Type Severity Reaction Status Date / Time ezetimibe Allergy Unknown Verified 07/19/23 21:32 Fish Containing Products Allergy Unknown Verified 07/19/23 21:32 glyburide Allergy Unknown Verified 07/19/23 21:32 isosorbide Allergy PT UNSURE Verified 07/19/23 21:32 OF REACTION lisinopril Allergy Unknown Verified 07/19/23 21:32 metformin Allergy Nausea Verified 07/19/23 21:32 metoprolol Allergy Unknown Verified 07/19/23 21:32 simvastatin Allergy Unknown Verified 07/19/23 21:32 tramadol Allergy Other Verified 07/19/23 21:32 iron AdvReac Mild Vomiting Verified 07/19/23 21:32 gabapentin AdvReac Other Verified 07/19/23 21:32 Family History Father No problems noted. Surgical History History of cholecystectomy History of knee replacement procedure of left knee History of permanent cardiac pacemaker placement (01/14/21) H/O coronary artery bypass surgery History of coronary artery stent placement Social History household members: spouse Smoking Status: Former smoker details: Unknown substance use type: does not use ROS ROS ED Constitutional Constitutional ED: Reports fever(s); Denies chills, sweats or weight loss Eyes Eyes: Denies blurry vision or change in vision ENT ENT ED: Denies ear pain, rhinorrhea or sore throat Cardiovascular Cardiovascular: Denies chest pain, orthopnea, palpitations, paroxysmal nocturnal dyspnea or racing heartbeat Respiratory/Chest Respiratory/Chest: Reports cough, dyspnea, dyspnea on exertion and sputum; Denies orthopnea or paroxysmal nocturnal dyspnea Gastrointestinal Gastrointestinal: Denies abdominal pain, constipation, diarrhea, melena, nausea or vomiting Genitourinary Genitourinary ED: Denies dysuria, hematuria or urinary frequency Musculoskeletal Musculoskeletal: Denies arthralgias or myalgias Integumentary Denies rash Neurologic Neurologic: Reports weakness; Denies headache(s) or paresthesias Psychiatric Psychiatric: Denies anxiety Hematologic/Lymphatic Hematologic/Lymphatic: Denies easy bleeding or easy bruising Allergic/Immunologic Allergic/Immunologic ED: Denies mouth swelling, tongue swelling or urticaria EXAM Physical Exam Const Vital Signs: 07/19/23 21:33 07/19/23 21:41 07/19/23 22:04 Temperature 97.3 F L Temperature Source Temporal Pulse Rate 61 Respiratory Rate 20 H Respiratory Effort Short of Breath Respiratory Depth Normal Respiratory Pattern Normal Blood Pressure 147/59 H Blood Pressure Mean 88 Pulse Ox 100 Oxygen Delivery Method Nasal Cannula Nasal Cannula Nasal Cannula Oxygen Flow Rate (L/min) 4 4 4 07/19/23 23:11 Temperature Temperature Source Pulse Rate 62 Respiratory Rate 17 Respiratory Effort Respiratory Depth Respiratory Pattern Blood Pressure 116/49 L Blood Pressure Mean 71 Pulse Ox 94 Oxygen Delivery Method Oxygen Flow Rate (L/min) 4 Positive well nourished and well developed Constitutional Narrative: BMI is 35.8. He appears in no distress. His vital signs reveal slight elevation of blood pressure otherwise otherwise unremarkable. General Appearance ED: well developed, NAD and pallor HEENT Reports moist mucous membranes HEENT Narrative: Ears are normal. Nares are patent. Posterior pharynx is normal. Uvula is midline. There is no deviation with protrusion. atraumatic; Negative for tenderness Eyes PERRL and EOMs intact bilaterally General Eye ED: Negative for pale conjunctiva or scleral icterus Neck no lymphadenopathy, supple, no meningeal signs and no JVD Resp normal respiratory effort and clear to auscultation bilaterally Cardio regular rate, regular rhythm, S1 normal heart sound, S2 normal heart sound and no murmurs Cardio Narrative: Monitor reveals a paced rhythm rate 60. He has not AV sequential pacer noted on the monitor. GI non-tender and no masses; Negative for non-distended Auscultation: hypoactive bowel sounds Palpation: soft; Negative for hepatomegaly or splenomegaly Back/Spine no CVA tenderness Extremity Negative for normal to inspection Extremity Narrative: There is no asymmetry, discoloration, leg vein distention, palpable cords tenderness on the distribution deep venous system. PT pulse was not palpable on either side. Patient has symptoms that are consistent with stable claudication. General Extremety ED: Yes edema; Negative for tenderness General Extremity: edema Neuro oriented x3, CN's II-XII intact bilaterally and no sensory deficits noted Neuro Narrative: Patient stutters, which is not abnormal. [place] Coma Scale: document GCS findings Spontaneous Obeys Commands Oriented 15 Sensorium / Orientation: alert Psych mental status grossly normal Skin no wounds and skin turgor normal General Skin Exam: pallor; Negative for jaundice Lesions: no lesions Rashes: no rashes MDM MDM MDM Narrative Medical decision making narrative: Differential diagnosis would include congestive heart failure, CAD, COPD exacerbation, pneumonia. Will obtain EKG to assess for any obvious ischemic changes. Chest x-ray to assess for pneumonia, pneumothorax. Troponin to rule out cardiac ischemia since symptoms started early this morning. BNP to assess and risk ratified for CHF. CBC to assess for anemia as well as white count differential since infectious etiology is in the differential. BMP to assess glucose/CO2 anion gap since he is a type II diabetic on insulin. Also to assess his renal function. History & Record Review Additional record(s) reviewed:: Prior inpatient record (Admission March for CHF exacerbation.), Prior outpatient record (Pulmonary office visit May 26. He had pulmonary tests at that time.) and Prior ED visit (Seen July 11 for symptoms and discharged with prescription for ciprofloxacin.June was seen for symptoms as well. He was seen on July 10 for chest pain. It was determined not to be cardiac in etiology.) Lab Data Attestation: I reviewed the patient's lab results. Lab results narrative: CBC reveals anemia with normal indices. Review of prior results indicates patient has chronic anemia. He had a hemoglobin of 29 September 2022. His normal hemoglobin varies between 11 and 12. Basic metabolic panel reveals a BUN/creatinine of 20 and 1.24 with an estimated GFR of 61. First troponin is normal at 16. BNP is slightly elevated 134 and essentially his baseline. Labs: Laboratory Results - last 24 hr 07/19/23 07/20/23 22:05 00:10 WBC 8.1 RBC 3.80 L Hgb 11.7 L Hct 36.6 L MCV 96.3 H MCH 30.8 MCHC 32.0 RDW Std Deviation 51.0 H RDW Coeff of Cinda 14.6 Plt Count 144 L MPV 10.3 Immature Gran % (Auto) 0.200 Neut % (Auto) 81.2 H Lymph % (Auto) 9.2 L [place] % (Auto) 7.5 Eos % (Auto) 1.7 Baso % (Auto) 0.2 Absolute Neuts (auto) 6.5 Absolute Lymphs (auto) 0.74 L Nucleated RBC % 0 Sodium 138 Potassium 3.5 Chloride 101 Carbon Dioxide 30.0 Anion Gap 7 BUN 20 H Creatinine 1.24 Estim Creat Clear Calc 66.88 Est GFR (MDRD) Af Amer 74 Est GFR (MDRD) Non-Af 61 BUN/Creatinine Ratio 16.1 Glucose 78 Calcium 8.7 Troponin I High Sens 16 14 B-Natriuretic Peptide 134.1 H 2-hour troponin is 14 with a delta of -2. Plan is discharge to home Radiography Chest X-Ray - ED: 2 View, Read by ED Physician (Recently treated by nj at 2231 as unchanged from prior. He has cardiomegaly. He has hardware due to prior multiple left rib fractures, inspiratory volume is limited. [place] is unremarkable. There is a pacemaker noted, dual-chamber as well as sternotomy wires.), Unchanged, No Acute Disease, Chronic Changes and Cardiomegaly Diagnostic Testing: Clinical Impression(s) from Imaging Studies Chest X-Ray 07/19/23 22:14 IMPRESSION: Moderate cardiomegaly. Electronically Signed: Sharonda Wagner MD at 22:35 EDT , EKG Initial EKG: Attestation: I personally reviewed and interpreted this EKG as follows: Interpretation: Paced (Ventricular paced rhythm with a rate of 61. QRS duration 140 ms. QT is 524 ms. [place] is normal.) Treatment and Re-Evaluation :: Patient and were informed of his EKG, chest x-ray and blood work results at this point. He was informed a 2-hour troponin is pending. If workup is unremarkable plan is to discharge to home. He understands. He states he is having low back pain. He asked if he could receive something. Medication was ordered. Discharge Plan Triage Chief Complaint: Shortness of Breath Other Complaint: Cold Sx ED Provider: Yadiel Guzman Dx/Rx/DC Orders Clinical Impression: Acute dyspnea, Chronic hypoxemic respiratory failure, History of CAD (coronary artery disease), ICD (implantable cardioverter-defibrillator) in place, EKATERINA (obstructive sleep apnea), Pacemaker, History of COPD, History of chronic CHF, Anemia in chronic illness Instructions: ED Dyspnea Prescriptions: No Action clopidogrel [Plavix] 75 mg tablet 75 mg PO DAILY levetiracetam 500 mg tablet 500 mg PO BID atorvastatin 80 MG tablet 80 mg PO QHS aspirin 81 MG tablet 81 mg PO DAILY finasteride 5 MG tablet 5 mg PO DAILY escitalopram oxalate 10 MG tablet 10 mg PO DAILY Humulin R U-500 (Conc) Kwikpen 500 unit/mL (3 mL) insulin pen See Rx Instructions subcut BID Rx Instructions: 130 units with breakfast; 130 units with dinner nitroglycerin 0.4 MG tablet, sublingual 0.4 mg sublingual Q5M PRN (Reason: CHEST PAIN ) Qty: 30 0RF pantoprazole 40 MG tablet 40 mg PO BID carvedilol 25 MG tablet 25 mg PO BID ranolazine 500 mg Tablet Extended Release 12 Hr 500 mg PO Q12H tamsulosin 0.4 MG capsule 0.4 mg PO QHS magnesium oxide 420 mg Tablet 420 mg PO BID ketoconazole 2 % Shampoo 1 applic TOPICAL DAILY albuterol sulfate 2.5 mg /3 mL (0.083 %) Solution For Nebulization 2.5 mg INHALATION Q6H PRN (Reason: SHORTNESS OF BREATH/WHEEZING ) multivitamin with minerals Tablet 1 tab PO DAILY spironolactone [Aldactone] 25 mg tablet 25 mg PO DAILY acetaminophen [Tylenol] 325 MG tablet 650 mg PO 4X/DAY PRN (Reason: PAIN ) cyclobenzaprine 10 mg tablet 10 mg PO BID PRN (Reason: MUSCLE SPASMS) Jardiance 25 mg tablet 25 mg PO DAILY carboxymethylcellulose sodium 0.5 % drops 1 drp EACH EYE TID PRN (Reason: EYE DRYNESS ) guaifenesin 100 mg/5 mL liquid 200 mg PO TID PRN (Reason: CONGESTION ) cholecalciferol (vitamin D3) [D3-2000] 50 mcg (2,000 unit) capsule 100 mcg PO DAILY Breztri Aerosphere 160-9-4.8 mcg/actuation HFA aerosol inhaler 2 inh inhalation BID Patient Comments: PT STATES THEY HAVE THE INHALER BUT IT DOES NOT WORK WELL FOR THEM Rx Instructions: RINSE MOUTH AFTER USE furosemide 40 mg Tablet 40 mg PO DAILY cephalexin 500 mg capsule 500 mg PO Q6 Qty: 40 0RF ciprofloxacin HCl 500 mg tablet 500 mg PO BID Qty: 14 0RF phenazopyridine [Pyridium] 100 mg tablet 100 mg PO TID PRN (Reason: pain) Qty: 6 0RF guaifenesin 600 mg tablet extended release 12hr 1,200 mg PO Q12H PRN (Reason: COUGH/CONGESTION ) Qty: 120 11RF [facility] - 5-7 Days Print Language: Nauruan Disposition Disposition: Home, Self Care
[2023-07-19 22:14] LABS: Absolute Lymphocyte Count 0.74 X10^3/uL (0.83-4.51); Absolute Neutrophil Count 6.5 X10^3/uL (2.0-7.7); Basophil# 0.02 X10^3/uL; Basophil% 0.2 % (0-1); Eosinophil# 0.14 X10^3/uL; Eosinophils% 1.7 % (0-5); Hematocrit 36.6 % (40-54); Hemoglobin 11.7 g/dL (13.0-16.5); Lymphocyte # 0.74 X10^3/ul (0.83-4.51); Lymphocyte % 9.2 % (19-41); Mean Corpuscular Hgb 30.8 pg (27.0-32.0); Mean Corpuscular Volume 96.3 fL (80-94); Mean Platelet Vol. 10.3 fl (6.2-12.0); Monocyte% 7.5 % (0-10); NRBC Flagged by Analyzer 0 % (0-5); Neutrophil # 6.53 X10^3/uL (2.7-7.7); Neutrophil % 81.2 % (47-70); Platelet Count 144 K/mm3 (150-450); RBC Distribution Width CV 14.6 % (11.6-14.6); White Blood Count 8.1 K/mm3 (4.4-11.0)
--- NOTE | 2023-07-19 22:14 | RAD_ITS ---
INDICATION: Shortness of breath, history of CHF EXAMINATION/TECHNIQUE: X-RAY - XR Chest 2 Views COMPARISON: CR Chest, Jun 21 2023 FINDINGS: Stable mild increased linear markings at the left lung base most likely secondary to scarring. Sternal cerclage wires and vascular clips are present from a prior sternotomy and coronary artery bypass graft procedure (CABG). Moderate cardiomegaly. A left-sided chamber pacemaker is seen. Normal mediastinum and cata. Normal visualized pulmonary arteries. Normal visualized aortic arch and descending thoracic aorta. Normal visualized thoracic spine. Prior ORIF of multiple left rib fractures. There is no demonstrated abnormality of the visualized soft tissue structures of the upper abdomen. RAD/Chest PA and Lateral IMPRESSION: Moderate cardiomegaly. Electronically Signed: Sharonda Wagner MD at 22:35 EDT ,
[2023-07-19 22:34] LABS: Anion Gap 7 (5-15); BUN 20 mg/dL (7-18); BUN/Creat Ratio 16.1 RATIO (10-20); Calcium,Total 8.7 mg/dL (8.5-10.1); Chloride 101 mmol/L (98-107); Creatinine, Serum 1.24 mg/dL (0.70-1.30); EST Glomerular Filtration Rate 61 mL/min (>60); Est Glom Filt Rate - Afr Amer 74 mL/min (>60); Estimated Creatinine Clearance 66.88 ml/min; Glucose 78 mg/dL (74-106); Potassium 3.5 mmol/L (3.5-5.1); Sodium Level 138 mmol/L (136-145); Troponin-I HS (w/2H Reflex) 16 pg/mL (3.0-78.0)
[2023-07-19 22:35] LABS: BNP,B-Type NATRIURETIC PEPTIDE 134.1 pg/mL (0-100)
[2023-07-19] MEDS: HYDROcodone Bitartrate/Apap 5/325 Tablet PO (23:10)
[2023-07-19 23:11] VITALS: BP 116/49; PULSE 62; RESP 17; O2SAT 94
[2023-07-20 00:11] LABS: Reflex Troponin-HS? (from REC) Y
[2023-07-20 01:00] VITALS: BP 125/66; PULSE 60; RESP 15; O2SAT 98
[2023-07-20 01:05] LABS: Troponin-I HS 14 pg/mL (3.0-78.0)
[2023-07-20 01:26] VITALS: BP 125/66; PULSE 60; RESP 15; TEMP 36.2; O2SAT 99
== END 2023-07-20 01:27 | disposition home or self-care (01) ==
PROVIDERS: Emergency Provider Emergency Medicine; Visit Provider Emergency Medicine
DX: J96.11 Chronic respiratory failure with hypoxia (principal); I11.0 Hypertensive heart disease with heart failure; I50.9 Heart failure, unspecified; J44.9 Chronic obstructive pulmonary disease, unspecified; E11.9 Type 2 diabetes mellitus without complications; R14.0 Abdominal distension (gaseous); Z87.891 Personal history of nicotine dependence; I25.10 Atherosclerotic heart disease of native coronary artery without angina pectoris; G47.33 Obstructive sleep apnea (adult) (pediatric); Z95.810 Presence of automatic (implantable) cardiac defibrillator; D63.1 Anemia in chronic kidney disease
CPT/HCPCS: 71046; 80048; 83880; 84484; 85025; 93005; 99285; A4216

== ENCOUNTER 2023-08-12 11:25 | Inpatient (IN) | payer OTHER, SELFPAY ==
[2023-08-12] VITALS (13 sets, daily range): BP systolic 106–157; BP diastolic 63–95; PULSE 59–100; RESP 16–19; TEMP 36.1–36.6; O2SAT 97–100; BMI 34.2
--- NOTE | 2023-08-12 12:05 | EX.ED.DYSGE1 ---
HPI History of Present Illness Chief Complaint: Syncope Informant: patient and spouse/S.O. Onset/Context/Timing Onset: Yesterday Context: Gradual Onset Timing: Continuous Quality: Confused Location: Generalized Worsened by: Nothing Relieved by: Nothing Narrative Narrative: Patient presents with syncopal episodes and confusion that began today. states that the patient was not feeling well last night and went to bed early at approximately 7 PM. states that he woke up confused and had 3 syncopal episodes today. states that he still is confused and he is having difficulty speaking. Patient states nothing makes it worse and nothing makes it better. Patient does admit to some shortness of breath and some pain in his chest. Patient also admits to a headache. [facility] Medical History Left-sided weakness Chest pain Syncope DNR (do not resuscitate) DNR (do not resuscitate) discussion Heart failure EKATERINA (obstructive sleep apnea) Anemia Chronic hyperglycemia History of TIAs Conversion reaction Sick sinus syndrome Pacemaker battery depletion Hemiparesis, left Former smoker On home oxygen therapy Pacemaker Congestive heart failure (CHF) Myocardial infarct Chest pain Pulmonary embolism Dysarthria BiPAP (biphasic positive airway pressure) dependence Wears hearing aid in both ears Diabetes Stroke/cerebrovascular accident COPD (chronic obstructive pulmonary disease) History of fractured rib CAD (coronary artery disease) Essential (primary) hypertension Atherosclerotic heart disease inaja coronary artery w/angina pectoris EKATERINA (obstructive sleep apnea) Abnormal EKG DM type 2 (diabetes mellitus, type 2) Chronic respiratory failure Obesity Hyperlipidemia Home Medications ?Medication ?Instructions ?Recorded ?Last Taken ?Type aspirin 81 mg tablet,delayed 81 mg PO DAILY HEART HEALTH 06/11/18 08/11/23 History release atorvastatin 80 mg tablet 80 mg PO QHS CHOLESTEROL 06/11/18 08/11/23 History escitalopram oxalate 10 mg tablet 10 mg PO DAILY DEPRESSION 06/11/18 08/11/23 History finasteride 5 mg tablet 5 mg PO DAILY PROSTATE 06/11/18 08/11/23 History nitroglycerin 0.4 mg sublingual 0.4 mg sublingual Q5M PRN CHEST 07/22/18 01/17/20 Rx tablet PAIN #30 TABLETS pantoprazole 40 mg tablet,delayed 40 mg PO BID GERD 05/18/20 08/11/23 History release carvedilol 25 mg tablet 25 mg PO BID BLOOD PRESSURE 06/22/20 08/11/23 History ranolazine 500 mg tablet,extended 500 mg PO Q12H CHEST PAIN 06/22/20 08/11/23 History release,12 hr tamsulosin 0.4 mg capsule 0.4 mg PO QHS PROSTATE 08/10/20 08/11/23 History clopidogrel 75 mg tablet (Plavix) 75 mg PO DAILY BLOOD THINNER 01/07/21 08/11/23 History albuterol sulfate 2.5 mg/3 mL 2.5 mg inhalation Q6H PRN 12/12/21 08/11/23 History (0.083 %) solution for nebulization SHORTNESS OF BREATH/WHEEZING ketoconazole 2 % shampoo 1 applic topical DAILY DRY SCALP 12/12/21 03/03/23 History magnesium oxide 420 mg tablet 420 mg PO BID SUPPLEMENT 12/12/21 08/11/23 History multivitamin with minerals 1 tab PO DAILY SUPPLEMENT 12/12/21 08/11/23 History spironolactone 25 mg tablet 25 mg PO DAILY BLOOD PRESSURE 09/10/22 08/11/23 History (Aldactone) acetaminophen 325 mg tablet 650 mg PO 4X/DAY PRN PAIN 01/27/23 08/11/23 History (Tylenol) cyclobenzaprine 10 mg tablet 10 mg PO BID PRN MUSCLE SPASMS 01/27/23 08/11/23 History budesonide 160 mcg-glycopyr 9 2 inh inhalation BID SHORTNESS OF 03/04/23 08/11/23 History mcg-formot 4.8 mcg/actuation HFA BREATH inhaler (Breztri Aerosphere) carboxymethylcellulose sodium 0.5 1 drp EACH EYE TID PRN EYE DRYNESS 03/04/23 08/11/23 History % eye drops cholecalciferol (vitamin D3) 50 100 mcg PO DAILY SUPPLEMENT 03/04/23 08/11/23 History mcg (2,000 unit) capsule (D3-2000) empagliflozin 25 mg tablet 25 mg PO DAILY DIABETES 03/04/23 08/11/23 History (Jardiance) insulin regular hum U-500 conc 500 See Rx Instructions subcut BID 05/27/23 08/11/23 History unit/mL(3 mL) subcut pen (Humulin DIABETES R U-500 (Conc) Insulin Kwikpen) levetiracetam 500 mg tablet 500 mg PO BID 05/27/23 08/11/23 History phenazopyridine 100 mg tablet 100 mg PO TID PRN pain 6 doses #6 07/12/23 08/11/23 Rx (Pyridium) tabs furosemide 40 mg tablet 40 mg PO DAILY EDEMA 07/19/23 08/11/23 History sacubitril 24 mg-valsartan 26 mg 1 tab PO BID 08/12/23 08/11/23 History tablet (Entresto) Allergy/AdvReac Type Severity Reaction Status Date / Time ezetimibe Allergy Unknown Verified 07/19/23 21:32 Fish Containing Products Allergy Unknown Verified 07/19/23 21:32 glyburide Allergy Unknown Verified 07/19/23 21:32 isosorbide Allergy PT UNSURE Verified 07/19/23 21:32 OF REACTION lisinopril Allergy Unknown Verified 07/19/23 21:32 metformin Allergy Nausea Verified 07/19/23 21:32 metoprolol Allergy Unknown Verified 07/19/23 21:32 simvastatin Allergy Unknown Verified 07/19/23 21:32 tramadol Allergy Other Verified 07/19/23 21:32 iron AdvReac Mild Vomiting Verified 07/19/23 21:32 gabapentin AdvReac Other Verified 07/19/23 21:32 Family History Father No problems noted. Surgical History History of cholecystectomy History of knee replacement procedure of left knee History of permanent cardiac pacemaker placement (01/14/21) H/O coronary artery bypass surgery History of coronary artery stent placement Social History household members: spouse Smoking Status: Former smoker details: Unknown substance use type: does not use ROS ROS ED Constitutional Constitutional ED: Denies chills or fever(s) Eyes Eyes: Denies blurry vision or change in vision ENT ENT ED: Denies rhinorrhea or sore throat Cardiovascular Cardiovascular: Reports chest pain; Denies palpitations Respiratory/Chest Respiratory/Chest: Reports dyspnea; Denies cough Gastrointestinal Gastrointestinal: Denies nausea or vomiting Genitourinary Genitourinary ED: Denies dysuria or hematuria Musculoskeletal Musculoskeletal: Reports back pain and neck pain Integumentary Denies abscess or rash Neurologic Neurologic: Reports headache(s); Denies weakness Allergic/Immunologic Allergic/Immunologic ED: Denies mouth swelling or urticaria EXAM Physical Exam Const Vital Signs: 08/12/23 11:26 08/12/23 12:13 08/12/23 12:27 Temperature 96.9 F L Temperature Source Temporal Pulse Rate 60 60 Pulse Rate [Lying] Pulse Rate [Sitting (for 1 minute prior to obtaining)] Pulse Rate [Standing (for 1 minute prior to obtaining)] Respiratory Rate 19 H 18 Blood Pressure 106/92 H 140/72 H Blood Pressure [Lying] Blood Pressure [Sitting (for 1 minute prior to obtaining)] Blood Pressure [Standing (for 1 minute prior to obtaining)] Blood Pressure Mean 96 94 Blood Pressure Mean [Lying] Blood Pressure Mean [Sitting (for 1 minute prior to obtaining)] Blood Pressure Mean [Standing (for 1 minute prior to obtaining)] Pulse Ox 97 100 Oxygen Delivery Method Nasal Cannula Nasal Cannula Nasal Cannula Oxygen Flow Rate (L/min) 4 2 2 08/12/23 13:00 08/12/23 13:46 08/12/23 14:00 Temperature Temperature Source Pulse Rate 60 71 Pulse Rate [Lying] 60 Pulse Rate [Sitting (for 1 minute prior to obtaining)] 60 Pulse Rate [Standing (for 1 minute prior to obtaining)] 61 Respiratory Rate 18 18 Blood Pressure 144/63 H 155/94 H Blood Pressure [Lying] 154/76 H Blood Pressure [Sitting (for 1 minute prior to obtaining)] 140/75 H Blood Pressure [Standing (for 1 minute prior to obtaining)] 134/69 H Blood Pressure Mean 90 114 Blood Pressure Mean [Lying] 102 Blood Pressure Mean [Sitting (for 1 minute prior to obtaining)] 96 Blood Pressure Mean [Standing (for 1 minute prior to obtaining)] 90 Pulse Ox 99 97 Oxygen Delivery Method Room Air Nasal Cannula Oxygen Flow Rate (L/min) 2 Positive well nourished and well developed General Appearance ED: well developed and NAD HEENT Reports moist mucous membranes Neck supple and no JVD Chest Wall inspection of chest normal and palpation of chest normal Resp normal respiratory effort Auscultation: diminished lung sounds Cardio regular rate and regular rhythm GI GI Narrative: Abdomen is soft. Bowel sounds are normal. There is mild diffuse tenderness. There is no rebound or guarding noted. Palpation: soft; Negative for guarding or rebound tenderness present Extremity normal to inspection General Extremety ED: Negative for edema or tenderness General Extremity: Negative for edema Neuro CN's II-XII intact bilaterally and no sensory deficits noted Neuro Narrative: Patient is nonverbal but communicates by pointing, nodding, and shaking his head. Patient appears to understand questions. Sensorium / Orientation: alert Motor Exam: general weakness Skin no rashes or lesions noted MDM MDM MDM Narrative Medical decision making narrative: Differential diagnosis includes cardiac dysrhythmia, cardiac ischemia, electrolyte abnormality, congestive heart failure, pneumonia, pneumothorax, sepsis, stroke, and intracranial bleeding. EKG will be obtained to assess for cardiac dysrhythmia and cardiac ischemia. Chest x-ray will be obtained to assess for pneumonia and pneumothorax. CT scan of the brain will be obtained to assess for intracranial bleeding and stroke. CBC will be obtained to assess for leukocytosis and anemia. Comprehensive metabolic profile will be obtained to assess for electrolyte abnormality, renal function, and hepatic function. Urinalysis will be obtained to assess for urinary tract infection and hematuria. High-sensitivity troponin will be obtained to assess for cardiac ischemia. Lab Data Attestation: I reviewed the patient's lab results. Lab results narrative: CBC was reviewed. There is a mild anemia with a hemoglobin of 12.0 and hematocrit 36.7. This is improved from previous result. PT was INR and PTT were reviewed and were within normal limits. Basic metabolic profile was reviewed and was essentially within normal limits. Glucose was slightly elevated at 189. Initial high-sensitivity troponin was reviewed and was normal at 19. BNP was reviewed and was slightly elevated at 199.9. 2-hour repeat high-sensitivity troponin was reviewed and was normal at 20. Labs: Laboratory Results - last 24 hr 08/12/23 08/12/23 12:00 14:20 WBC 4.9 RBC 3.88 L Hgb 12.0 L Hct 36.7 L MCV 94.6 H MCH 30.9 MCHC 32.7 RDW Std Deviation 47.0 H RDW Coeff of Cinda 13.7 Plt Count 134 L MPV 10.8 Immature Gran % (Auto) 0.600 Neut % (Auto) 74.9 H Lymph % (Auto) 14.4 L [place] % (Auto) 7.3 Eos % (Auto) 2.4 Baso % (Auto) 0.4 Absolute Neuts (auto) 3.7 Absolute Lymphs (auto) 0.71 L Nucleated RBC % 0 PT 14.4 INR 1.1 APTT 38.5 H Sodium 139 Potassium 3.8 Chloride 106 Carbon Dioxide 29.0 Anion Gap 4 L BUN 17 Creatinine 0.85 Est GFR (MDRD) Af Amer 113 Est GFR (MDRD) Non-Af 93 BUN/Creatinine Ratio 19.9 Glucose 189 H Calcium 9.0 Troponin I High Sens 19 20 B-Natriuretic Peptide 199.9 H ABG Data ABG results: ABG 08/12/23 14:39 Specimen Type ART Sample Site R Radial pH 7.38 Bicarbonate Actual 27.3 H Total CO2 29 Base Excess 2 O2 Saturation 99 O2 % 4.0 ABG pCO2 46.2 H ABG pO2 123 H O2 Delivery Device Cannula Vent Mode Not entered Radiography Chest X-Ray - ED: 2 View, Read by ED Physician, Read by Radiologist and No Acute Disease Diagnostic Testing: Clinical Impression(s) from Imaging Studies Brain CT 08/12/23 12:14 IMPRESSION: 1. No CT evidence of intracranial bleeding, acute ischemic infarct or acute intracranial abnormality. 2. Chronic white matter ischemic changes in both cerebral hemispheres. 3. No interval change when compared to 04/01/2023. Electronically Signed: Adolfo Castro MD at 12:59 EDT , Chest X-Ray 08/12/23 12:30 IMPRESSION: Stable chest with no acute superimposed findings compared to the prior study. Electronically Signed: Rich Alvarez MD at 12:50 EDT , Head/Neck CTA 08/12/23 14:19 IMPRESSION: Normal CTA Head and neck with contrast. COMMENT: 1. Multiple small and mildly prominent lymph nodes in the behind the upper manubrium, the right paratracheal space, anterior paratracheal space and adjacent the left side of the transverse thoracic aorta. I am uncertain if these are benign reactive nodes. CT chest may help clarify if clinically warranted. 2. 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 3. Normal thyroid gland. 4. Normal lung apices. 5. No acute osseous abnormality of the cervical spine. Electronically Signed: Adolfo Castro MD at 15:45 EDT , Portable 1 view chest x-ray was obtained. On my independent interpretation, lung flores are clear. There is normal cardiac silhouette. Bony thorax is normal. There is no acute process noted. Radiologist also interpreted the x-ray and agrees. CT scan of the brain was obtained. There is no acute intracranial abnormality. There are chronic changes noted. This was interpreted by the radiologist and was also independently reviewed by myself. CTA of the head and neck was obtained. There is no acute abnormality noted. This was interpreted by the radiologist was also independently reviewed by myself. EKG Initial EKG: Attestation: I personally reviewed and interpreted this EKG as follows: Interpretation: Paced (60), LBBB and Non-Specific ST Changes Comments: EKG was obtained. On my independent interpretation, there is a paced rhythm with a rate of 60. QRS interval slightly prolonged at 144 ms. QTc interval was slightly prolonged at 502 ms. There are no acute ST or T wave changes noted. There is left bundle branch block pattern noted. This was unchanged compared to previous EKG dated 07/19/2023. Prior EKG tracings: available for review Prior: Unchanged (07/19/2023) Treatment and Re-Evaluation :: On reevaluation, patient appeared to be having more of an expressive aphasia and difficulty speaking. Because of this, CTA of the head and neck was obtained. Also, because of his current fusion, ABG was obtained. This was reviewed. This showed a pH 7.38 with a pCO2 of 46.2 and a pO2 of 122.5. Bicarb was normal at 27.3. Oxygen saturation was 98.6% on 4 L nasal cannula. Patient was also noted to be on Keppra. Because of this, a Keppra level was obtained. This will not be returned today. Case was discussed with the hospitalist. He will admit the patient to his service for confusion. Patient and spouse understood and were agreeable with the plan. All questions were answered. Discharge Plan Dx/Rx/DC Orders Clinical Impression: Confusion, COPD (chronic obstructive pulmonary disease), History of CAD (coronary artery disease), ICD (implantable cardioverter-defibrillator) in place, Syncope Disposition Disposition: Acute Care Hospital [facility]
--- NOTE | 2023-08-12 12:13 | EKG12_ITS ---
Test Reason : Blood Pressure : / mmHG Vent. Rate : 060 BPM Atrial Rate : 060 BPM P-R Int : 166 ms QRS Dur : 144 ms QT Int : 502 ms P-R-T Axes : 000 213 113 degrees QTc Int : 502 ms AV dual-paced rhythm Biventricular pacemaker detected Abnormal ECG Confirmed by Flako Sheikh ([id number]), newspaper editor NADINE FERRER ([id number]) on 08/13/2023 11:01:53 AM Referred By: Confirmed By:Flako Sheikh
--- NOTE | 2023-08-12 12:14 | CT_ITS ---
EXAM: CT HEAD WITHOUT INTRAVENOUS CONTRAST CLINICAL INDICATION: Syncope TECHNIQUE: Multiple axial images were obtained of the head without intravenous contrast. This CT exam was performed using one or more of the following dose reduction techniques: automated exposure control, adjustment of the mA and/or kV according to patient size, and/or use of iterative reconstruction technique. RADIATION DOSE: CTDIvol = 44.99 mGy, DLP = 812.98 mGy-cm COMPARISON: CT head without contrast 04/01/2023. MRI brain without and with contrast 03/23/2023. FINDINGS: BRAIN AND EXTRA-AXIAL SPACES: Hypodensities in the white matter of both cerebral hemispheres are chronic white matter ischemic changes. No intra- or extra-axial hemorrhage. No intracranial mass or mass effect. Posterior fossa structures are unremarkable. Ventricles are appropriate for age. No hydrocephalus. Basal cisterns are patent. BONES/JOINTS: Unremarkable. No discrete lytic or blastic abnormalities. SINUSES: Unremarkable as visualized. Clear. MASTOID AIR CELLS: Unremarkable. Clear. ORBITS: Visualized globes, extraocular muscles, optic nerves and retrobulbar fat appear unremarkable. CT/Brain/Head without Contrast IMPRESSION: 1. No CT evidence of intracranial bleeding, acute ischemic infarct or acute intracranial abnormality. 2. Chronic white matter ischemic changes in both cerebral hemispheres. 3. No interval change when compared to 04/01/2023. Electronically Signed: Adolfo Castro MD at 12:59 EDT ,
[2023-08-12] MEDS: Aspirin 81 MG TAB.CHEW 324 MG PO (12:17)
[2023-08-12 12:28] LABS: Absolute Lymphocyte Count 0.71 X10^3/uL (0.83-4.51); Absolute Neutrophil Count 3.7 X10^3/uL (2.0-7.7); Basophil# 0.02 X10^3/uL; Basophil% 0.4 % (0-1); Eosinophil# 0.12 X10^3/uL; Eosinophils% 2.4 % (0-5); Hematocrit 36.7 % (40-54); Lymphocyte # 0.71 X10^3/ul (0.83-4.51); Lymphocyte % 14.4 % (19-41); Mean Corp Hgb Conc 32.7 g/dL (32-36); Mean Corpuscular Hgb 30.9 pg (27.0-32.0); Mean Corpuscular Volume 94.6 fL (80-94); Mean Platelet Vol. 10.8 fl (6.2-12.0); Monocyte# 0.36 X10^3/uL; Monocyte% 7.3 % (0-10); NRBC Flagged by Analyzer 0 % (0-5); Neutrophil % 74.9 % (47-70); Platelet Count 134 K/mm3 (150-450); RBC Distribution Width CV 13.7 % (11.6-14.6); Red Blood Count 3.88 M/mm3 (4.6-6.2); White Blood Count 4.9 K/mm3 (4.4-11.0)
[2023-08-12 12:29] LABS: International Normalized Ratio 1.1; Partial Thromboplast Time 38.5 Seconds (24.1-36.2); Prothrombin Time (Protime)PT. 14.4 SECONDS (11.7-14.9)
--- NOTE | 2023-08-12 12:30 | RAD_ITS ---
STUDY: X-RAY CHEST REASON FOR EXAM: Male, 73 years old. Chest pain. TECHNIQUE: Single frontal view of the chest. Patient slightly rotated to the left. COMPARISON: July 19, 2023 FINDINGS: Cardiomegaly, cardiac pacer, sternotomy wires, aortic tortuosity, loss of volume of the left lung with multiple malleable plate and screw fixation of left ribs and elevation of the right hemidiaphragm with no abnormality of the right lung, all unchanged, allowing for technique.. Posttraumatic changes to the left ribs. No abnormality of the visualized soft tissue structures of the upper abdomen. RAD/Chest 1 View (Portable) IMPRESSION: Stable chest with no acute superimposed findings compared to the prior study. Electronically Signed: Rich Alvarez MD at 12:50 EDT ,
[2023-08-12 12:44] LABS: Anion Gap 4 (5-15); BUN 17 mg/dL (7-18); BUN/Creat Ratio 19.9 RATIO (10-20); Chloride 106 mmol/L (98-107); Creatinine, Serum 0.85 mg/dL (0.70-1.30); EST Glomerular Filtration Rate 93 mL/min (>60); Est Glom Filt Rate - Afr Amer 113 mL/min (>60); Glucose 189 mg/dL (74-106); Potassium 3.8 mmol/L (3.5-5.1); Sodium Level 139 mmol/L (136-145); Troponin-I HS (w/2H Reflex) 19 pg/mL (3.0-78.0)
[2023-08-12 12:57] LABS: BNP,B-Type NATRIURETIC PEPTIDE 199.9 pg/mL (0-100)
[2023-08-12 14:16] LABS: Reflex Troponin-HS? (from REC) Y
--- NOTE | 2023-08-12 14:19 | CT_ITS ---
STUDY: CTA HEAD AND NECK WITH CONTRAST REASON FOR EXAM: Male, 73 years old. Expressive aphasia RADIATION DOSAGE (If Supplied By Facility): CTDIvol = ( 31.11 ) mGy, DLP = ( 788.24 ) mGycm TECHNIQUE: CT angiography was performed with a multi-detector CT scanner. Data acquisition was obtained from the skull base through the vertex following intravenous administration of IV 100mL [id number]-[id number]. MIP images were reconstructed from the axial data set. Post-processing of the angiographic images was performed, with multiplanar reformation and 3D reconstruction. Individualized dose optimization techniques were used for this CT. The protocol utilizes one or more of the following dose reduction techniques: automated exposure control, adjustment of mA and/or kV according to patient size, and/or use of iterative reconstruction technique. COMPARISON: No relevant priors. FINDINGS: Normal bilateral petrous carotid arteries. Normal right cavernous carotid artery with a normal supraclinoid bifurcation. Normal left cavernous carotid artery with a normal supraclinoid bifurcation. Normal right A1 segment of the anterior cerebral artery. Normal left A1 segment of the anterior cerebral artery. Normal intact anterior communicating artery (ACOM). Normal bilateral A2 segments of the anterior cerebral arteries. Normal right M1 and M2 segments of the middle cerebral arteries, with a normal M1 trifurcation. Normal left M1 and M2 segments of the middle cerebral arteries, with a normal early M1 bifurcation in the right proximal M1 segment. This is a developmental variation of normal.. No visible right posterior communicating artery (PCOM). No visible left posterior communicating artery (PCOM). Normal bilateral codominant vertebral arteries. Normal basilar artery with a normal basilar bifurcation. The visualized bilateral superior cerebellar (SCA) arteries are normal. Normal bilateral P1, P2 and visualized P3 segments of the posterior cerebral arteries. There is no demonstrated aneurysm of the [place]. There is no demonstrated abnormality of the visualized brain. AORTIC ARCH: Normal visualized aortic arch. Normal origins of the brachiocephalic, left common carotid, and left subclavian arteries. RIGHT CAROTID ARTERIES: Normal right common carotid artery (CCA). Minimal nonocclusive calcified plaques in the right carotid bulb. Normal origin of the right internal carotid (ICA) artery without a hemodynamically significant stenosis. Normal visualized cervical portion of the right internal carotid artery. Normal origin of the right external carotid artery (ECA). LEFT CAROTID ARTERIES: Normal left common carotid artery (CCA). Nonocclusive calcified plaques in the left carotid bulb. Normal origin of the left internal carotid (ICA) artery without a hemodynamically significant stenosis. Normal visualized cervical portion of the left internal carotid artery. Normal origin of the left external carotid artery (ECA). VERTEBRAL ARTERIES: Normal bilateral vertebral arteries. CT/CTA Head AND Neck W/ Contrast IMPRESSION: Normal CTA Head and neck with contrast. COMMENT: 1. Multiple small and mildly prominent lymph nodes in the behind the upper manubrium, the right paratracheal space, anterior paratracheal space and adjacent the left side of the transverse thoracic aorta. I am uncertain if these are benign reactive nodes. CT chest may help clarify if clinically warranted. 2. 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 3. Normal thyroid gland. 4. Normal lung apices. 5. No acute osseous abnormality of the cervical spine. Electronically Signed: Adolfo Castro MD at 15:45 EDT ,
[2023-08-12 14:44] LABS: Base Excess 2 mmol/L (-2 to +2); Bicarbonate 27.3 mmol/L (22-26); Blood Gas Specimen Type ART; Mode Not entered; O2 Delivery Device Cannula; PO2 123 mmHG (75-100); SITE R Radial; SO2 99 % (95-99); Total Carbon Dioxide 29 mmol/L; pCO2 46.2 mmHg (35-45); pH 7.38 (7.35-7.45)
[2023-08-12 14:51] LABS: Troponin-I HS 20 pg/mL (3.0-78.0)
--- NOTE | 2023-08-12 15:22 | PCM.HP.STD ---
HPI - General General Date of Admission: 08/12/23 Date of Service: 08/12/23 Chief Complaint: Syncope, speech difficulties HPI Narrative GIOVANNY LEONARDO, is a 73 M who presents to the emergency room at [facility] after being brought in by his due to 3 syncopal episodes at home which occurred while he was lying down, also she stated that when he woke up this morning, his speech was not normal and he was not able to carry on a conversation or form certain words. She states the last time that she saw him well was when he went to bed last night. Patient has a history of chronic hypoxic respiratory failure and is on 4 L of oxygen continuously and BiPAP at night. Workup in the emergency room included a CBC which was abnormal for hemoglobin of 12, chemistry panel was remarkable for a glucose of 189 and a beta natruretic peptide of 199, CT of the head was obtained that showed no evidence of intracranial bleeding, acute ischemic infarct, or acute intracranial abnormality. There was noted to be chronic white matter ischemic changes in both cerebral hemispheres, there is no change from the previous head CT that was done on 04/01/2023. Chest x-ray was obtained and it showed a stable chest with no acute superimposed findings compared to the prior study. An ABG was obtained on 4 L of oxygen, pH was 7.38, pCO2 was 46, pO2 was 123. Patient's EKG showed an AV sequential pacemaker with appropriate capture. CTA of the head and neck showed multiple small and mildly prominent lymph nodes behind the upper manubrium, the right paratracheal space, the anterior paratracheal space, and adjacent to the left side of the transverse thoracic aorta. 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 Patient had significant dysarthria/expressive aphasia on exam today. Patient will be admitted to PCU for ischemic stroke, he will not be able to undergo MRI due to the fact he has a defibrillator that was placed recently and the does not know if it is MRI compatible. Repeat CT of the brain will be performed tomorrow morning. The etiology of the patient's syncope at home was not determined at this time. He will be monitored on telemetry, patient's defibrillator will be interrogated to see if he had any rhythm disturbance. [facility] Medical History Left-sided weakness Chest pain Syncope DNR (do not resuscitate) DNR (do not resuscitate) discussion Heart failure EKATERINA (obstructive sleep apnea) Anemia Chronic hyperglycemia History of TIAs Conversion reaction Sick sinus syndrome Pacemaker battery depletion Hemiparesis, left Former smoker On home oxygen therapy Pacemaker Congestive heart failure (CHF) Myocardial infarct Chest pain Pulmonary embolism Dysarthria BiPAP (biphasic positive airway pressure) dependence Wears hearing aid in both ears Diabetes Stroke/cerebrovascular accident COPD (chronic obstructive pulmonary disease) History of fractured rib CAD (coronary artery disease) Essential (primary) hypertension Atherosclerotic heart disease [place] coronary artery w/angina pectoris EKATERINA (obstructive sleep apnea) Abnormal EKG DM type 2 (diabetes mellitus, type 2) Chronic respiratory failure Obesity Hyperlipidemia Home Medications ?Medication ?Instructions ?Recorded ?Last Taken ?Type aspirin 81 mg tablet,delayed 81 mg PO DAILY HEART HEALTH 06/11/18 08/11/23 History release atorvastatin 80 mg tablet 80 mg PO QHS CHOLESTEROL 06/11/18 08/11/23 History escitalopram oxalate 10 mg tablet 10 mg PO DAILY DEPRESSION 06/11/18 08/11/23 History finasteride 5 mg tablet 5 mg PO DAILY PROSTATE 06/11/18 08/11/23 History nitroglycerin 0.4 mg sublingual 0.4 mg sublingual Q5M PRN CHEST 07/22/18 01/17/20 Rx tablet PAIN #30 TABLETS pantoprazole 40 mg tablet,delayed 40 mg PO BID GERD 05/18/20 08/11/23 History release carvedilol 25 mg tablet 25 mg PO BID BLOOD PRESSURE 06/22/20 08/11/23 History ranolazine 500 mg tablet,extended 500 mg PO Q12H CHEST PAIN 06/22/20 08/11/23 History release,12 hr tamsulosin 0.4 mg capsule 0.4 mg PO QHS PROSTATE 08/10/20 08/11/23 History clopidogrel 75 mg tablet (Plavix) 75 mg PO DAILY BLOOD THINNER 01/07/21 08/11/23 History albuterol sulfate 2.5 mg/3 mL 2.5 mg inhalation Q6H PRN 12/12/21 08/11/23 History (0.083 %) solution for nebulization SHORTNESS OF BREATH/WHEEZING ketoconazole 2 % shampoo 1 applic topical DAILY DRY SCALP 12/12/21 03/03/23 History magnesium oxide 420 mg tablet 420 mg PO BID SUPPLEMENT 12/12/21 08/11/23 History multivitamin with minerals 1 tab PO DAILY SUPPLEMENT 12/12/21 08/11/23 History spironolactone 25 mg tablet 25 mg PO DAILY BLOOD PRESSURE 09/10/22 08/11/23 History (Aldactone) acetaminophen 325 mg tablet 650 mg PO 4X/DAY PRN PAIN 01/27/23 08/11/23 History (Tylenol) cyclobenzaprine 10 mg tablet 10 mg PO BID PRN MUSCLE SPASMS 01/27/23 08/11/23 History budesonide 160 mcg-glycopyr 9 2 inh inhalation BID SHORTNESS OF 03/04/23 08/11/23 History mcg-formot 4.8 mcg/actuation HFA BREATH inhaler (Breztri Aerosphere) carboxymethylcellulose sodium 0.5 1 drp EACH EYE TID PRN EYE DRYNESS 03/04/23 08/11/23 History % eye drops cholecalciferol (vitamin D3) 50 100 mcg PO DAILY SUPPLEMENT 03/04/23 08/11/23 History mcg (2,000 unit) capsule (D3-2000) empagliflozin 25 mg tablet 25 mg PO DAILY DIABETES 03/04/23 08/11/23 History (Jardiance) insulin regular hum U-500 conc 500 See Rx Instructions subcut BID 05/27/23 08/11/23 History unit/mL(3 mL) subcut pen (Humulin DIABETES R U-500 (Conc) Insulin Kwikpen) levetiracetam 500 mg tablet 500 mg PO BID 05/27/23 08/11/23 History phenazopyridine 100 mg tablet 100 mg PO TID PRN pain 6 doses #6 07/12/23 08/11/23 Rx (Pyridium) tabs furosemide 40 mg tablet 40 mg PO DAILY EDEMA 07/19/23 08/11/23 History sacubitril 24 mg-valsartan 26 mg 1 tab PO BID 08/12/23 08/11/23 History tablet (Entresto) Allergy/AdvReac Type Severity Reaction Status Date / Time ezetimibe Allergy Unknown Verified 07/19/23 21:32 Fish Containing Products Allergy Unknown Verified 07/19/23 21:32 glyburide Allergy Unknown Verified 07/19/23 21:32 isosorbide Allergy PT UNSURE Verified 07/19/23 21:32 OF REACTION lisinopril Allergy Unknown Verified 07/19/23 21:32 metformin Allergy Nausea Verified 07/19/23 21:32 metoprolol Allergy Unknown Verified 07/19/23 21:32 simvastatin Allergy Unknown Verified 07/19/23 21:32 tramadol Allergy Other Verified 07/19/23 21:32 iron AdvReac Mild Vomiting Verified 07/19/23 21:32 gabapentin AdvReac Other Verified 07/19/23 21:32 Family History Father No problems noted. Surgical History History of cholecystectomy History of knee replacement procedure of left knee History of permanent cardiac pacemaker placement (01/14/21) H/O coronary artery bypass surgery History of coronary artery stent placement Social History household members: spouse Smoking Status: Former smoker details: Unknown substance use type: does not use ROS Constitutional Constitutional: Denies anorexia, change in weight, chills, fatigue, fever(s), night sweats or weakness Eyes Eyes: Denies blurry vision, change in vision, discharge from eye(s) or eye pain Cardiovascular Cardiovascular: Denies chest pain, claudication, edema or palpitations Respiratory/Chest Respiratory/Chest: Denies cough, hemoptysis, shortness of breath at rest or shortness of breath with exertion Gastrointestinal Gastrointestinal: Denies abdominal pain, constipation, diarrhea, hematemesis, hematochezia, melena, nausea or vomiting Genitourinary Genitourinary: Denies dysuria, hematuria, urinary frequency, urinary hesitancy, urinary incontinence or urinary urgency Musculoskeletal Musculoskeletal: Denies back pain, joint pain, joint stiffness, joint swelling, myalgias or neck pain Neurologic Neurologic: Reports abnormal speech and syncope; Denies abnormal gait, dizziness, focal weakness, headache(s), loss of vision, numbness, other visual disturbances, paresthesias or tingling Psychiatric Psychiatric: Denies anxiety, cognitive impairment, depression, irritability, mood swings or suicidal ideation Endocrine Endocrinology: Denies change in body appearance, cold intolerance, excessive sweating, heat intolerance, polydipsia or polyuria Hematologic/Lymphatic Hematologic/Lymphatic: Denies none, anemia, easy bleeding, easy bruising or lymphadenopathy Allergic/Immunologic Allergic/Immunologic: Denies rhinitis, urticaria, eczemia or asthma Vital Signs Vital Signs Vital Signs: 08/12/23 11:26 08/12/23 12:13 08/12/23 12:27 Temperature 96.9 F L Temperature Source Temporal Pulse Rate 60 60 Pulse Rate [Lying] Pulse Rate [Sitting (for 1 minute prior to obtaining)] Pulse Rate [Standing (for 1 minute prior to obtaining)] Respiratory Rate 19 H 18 Blood Pressure 106/92 H 140/72 H Blood Pressure [Lying] Blood Pressure [Sitting (for 1 minute prior to obtaining)] Blood Pressure [Standing (for 1 minute prior to obtaining)] Blood Pressure Mean 96 94 Blood Pressure Mean [Lying] Blood Pressure Mean [Sitting (for 1 minute prior to obtaining)] Blood Pressure Mean [Standing (for 1 minute prior to obtaining)] Pulse Ox 97 100 Oxygen Delivery Method Nasal Cannula Nasal Cannula Nasal Cannula Oxygen Flow Rate (L/min) 4 2 2 08/12/23 13:00 08/12/23 13:46 08/12/23 14:00 Temperature Temperature Source Pulse Rate 60 71 Pulse Rate [Lying] 60 Pulse Rate [Sitting (for 1 minute prior to obtaining)] 60 Pulse Rate [Standing (for 1 minute prior to obtaining)] 61 Respiratory Rate 18 18 Blood Pressure 144/63 H 155/94 H Blood Pressure [Lying] 154/76 H Blood Pressure [Sitting (for 1 minute prior to obtaining)] 140/75 H Blood Pressure [Standing (for 1 minute prior to obtaining)] 134/69 H Blood Pressure Mean 90 114 Blood Pressure Mean [Lying] 102 Blood Pressure Mean [Sitting (for 1 minute prior to obtaining)] 96 Blood Pressure Mean [Standing (for 1 minute prior to obtaining)] 90 Pulse Ox 99 97 Oxygen Delivery Method Room Air Nasal Cannula Oxygen Flow Rate (L/min) 2 Physical Exam Const alert, oriented x3 and no apparent distress General Appearance: cooperative, well kempt and well developed Orientation / Consciousness: awake, oriented to person, oriented to place and oriented to time HEENT normocephalic, head/scalp atraumatic, hearing grossly normal bilaterally and moist oral mucous membranes Eyes PERRL, EOMs intact bilaterally and conjunctivae normal Neck supple, no JVD, thyroid normal and no carotid bruits General: trachea midline Resp normal respiratory effort, no retractions, no use of accessory muscles and clear to auscultation bilaterally Auscultation: Negative for rales, rhonchi or wheezes Cardio regular rate, regular rhythm, S1 normal heart sound, S2 normal heart sound, no murmurs, no rub and no gallops GI normal to inspection, nondistended, normoactive bowel sounds, soft to palpation, non-tender and non-distended Extremity no clubbing, cyanosis or edema Skin no rashes or lesions noted General Skin Exam: no breakdown Neuro oriented x3, CN's II-XII intact bilaterally, moves all extremities, no focal motor deficits and no sensory deficits noted Neuro Narrative: Patient has marked dysarthria and expressive aphasia, he is able to answer questions appropriately but he has trouble forming words. Sensorium / Orientation: awake and alert Psych affect normal Results Lab / Micro Data 08/12/23 12:00 08/12/23 12:00 Labs: Laboratory Results - last 24 hr 08/12/23 12:00: WBC 4.9, RBC 3.88 L, Hgb 12.0 L, Hct 36.7 L, MCV 94.6 H, MCH 30.9, MCHC 32.7, RDW Std Deviation 47.0 H, RDW Coeff of Cinda 13.7, Plt Count 134 L, MPV 10.8, Immature Gran % (Auto) 0.600, Neut % (Auto) 74.9 H, Lymph % (Auto) 14.4 L, [place] % (Auto) 7.3, Eos % (Auto) 2.4, Baso % (Auto) 0.4, Absolute Neuts (auto) 3.7, Absolute Lymphs (auto) 0.71 L, Nucleated RBC % 0, PT 14.4, INR 1.1, APTT 38.5 H, Sodium 139, Potassium 3.8, Chloride 106, Carbon Dioxide 29.0, Anion Gap 4 L, BUN 17, Creatinine 0.85, Est GFR (MDRD) Af Amer 113, Est GFR (MDRD) Non-Af 93, BUN/Creatinine Ratio 19.9, Glucose 189 H, Calcium 9.0, Troponin I High Sens 19, B-Natriuretic Peptide 199.9 H 08/12/23 14:20: Troponin I High Sens 20 ABG Data ABG results: ABG 08/12/23 14:39 Specimen Type ART Sample Site R Radial pH 7.38 Bicarbonate Actual 27.3 H Total CO2 29 Base Excess 2 O2 Saturation 99 O2 % 4.0 ABG pCO2 46.2 H ABG pO2 123 H O2 Delivery Device Cannula Vent Mode Not entered Imaging Radiology Impression Brain CT 08/12/23 12:14 IMPRESSION: 1. No CT evidence of intracranial bleeding, acute ischemic infarct or acute intracranial abnormality. 2. Chronic white matter ischemic changes in both cerebral hemispheres. 3. No interval change when compared to 04/01/2023. Electronically Signed: Adolfo Castro MD at 12:59 EDT , Chest X-Ray 08/12/23 12:30 IMPRESSION: Stable chest with no acute superimposed findings compared to the prior study. Electronically Signed: Rich Alvarez MD at 12:50 EDT , Assessment & Plan Assessment/Plan (1) Syncope: PLAN: Plan 1. Dysarthria-etiology unclear, suspect left-sided cerebral infarct, patient will be admitted to PCU, NIH scores will be charted, patient will not be able to undergo an MRI due to his ICD. Patient will be seen by teleneurology in consultation, he will be monitored on telemetry and have an echocardiogram performed. He will be seen by speech therapy as well as PT and OT. Patient is already on 81 mg aspirin daily and Plavix. #2 syncope-etiology unclear, patient's ICD will be interrogated, he will be monitored on telemetry #3 chronic hypoxic respiratory failure-patient is on 4 L at all times, he uses BiPAP at night #4 coronary artery disease-extent unclear, patient and patient's was not able to tell me a specific reason why the patient had his pacemaker removed recently and a defibrillator implanted. 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 #5 type 2 diabetes-patient's blood sugars will be monitored, he will remain on his present medications, sliding scale insulin will be used if needed #6 seizure disorder-patient is on Keppra #7 BPH-patient is on Flomax Total clinical time spent by myself addressing the patient's medical issues, reviewing all of his data, and collaborating with patient's care team: 75 minutes Charges/Coding Visit Charges Inpatient E&M: 46865 Init Hosp L3
--- NOTE | 2023-08-12 16:11 | ED.RN ---
CALLED [facility]-- LEFT MESSAGE
--- NOTE | 2023-08-12 16:37 | ECHOCS_ITS ---
Reason For Study: tia/cva Procedure This was a 2D Doppler, Color Flow transthoracic echocardiogram. The study was technically difficult. Due to body habitus. Exam performed portable in patient room. Left Ventricle Normal LV size. Mild concentric left ventricular hypertrophy. The estimated ejection fraction is 50 %. Stage 3 diastolic dysfunction. [place] : Hypokinetic. Right Ventricle ICD or pacer leads identified within the right ventricle. Normal RV size. Normal systolic function. Atria The left atrium is severely enlarged. ICD or pacer leads identified within the right atrium. Normal right atrium. Mitral Valve The mitral valve is structurally normal. No prolapse or stenosis seen. Mild mitral annular calcification. Tricuspid Valve Normal tricuspid valve. Mild (1+) tricuspid valve insufficiency. Pulmonary artery systolic pressure is 23 mmHg. Aortic Valve Trisinus/trileaflet aortic valve. Mild focal aortic valve calcification. There is no aortic stenosis. Pulmonic Valve Normal pulmonic valve. Great Vessels Normal aortic root. Pericardium/Pleural No pericardial effusion. Medication Diluted definity 2.5ml given slow IV push to enhance endocardial definition. MMode/2D Measurements & Calculations LVIDd: 5.1 cm IVSd: 1.2 cm Ao root diam: 3.5 cm LVIDs: 3.6 cm LVPWd: 1.3 cm FS: 29.1 % LAV(MOD-bp): 76.6 ml LVAd ap4: 24.3 cm2 SV(MOD-sp4): 36.4 ml LAV(MOD-bp) Indexed: 34.1 ml/m2 LVLd ap4: 7.9 cm LAV(MOD-sp2): 70.1 ml EDV(MOD-sp4): 60.9 ml LAV(MOD-sp4): 77.0 ml EDV(sp4-el): 63.4 ml LVAs ap4: 13.7 cm2 LVLs ap4: 6.2 cm ESV(MOD-sp4): 24.5 ml ESV(sp4-el): 25.7 ml EF(MOD-sp4): 59.8 % EF(sp4-el): 59.5 % SV(sp4-el): 37.7 ml LA A4 area: 24.5 cm2 LA dimension(2D): 5.7 cm RA A4 area: 17.3 cm2 Time Measurements MV dec time: 0.25 sec Doppler Measurements & Calculations MV E max des: 82.4 cm/sec Lat Peak E' Des: 6.4 cm/sec Med Peak E' Des: 6.1 cm/sec MV A max des: 22.8 cm/sec E/E' lat: 12.9 E/E' med: 13.5 MV E/A: 3.6 MV V2 max: 99.9 cm/sec MV P1/2t max des: 94.1 cm/sec Ao V2 max: 124.9 cm/sec MV max P.0 mmHg MV P1/2t: 85.5 msec Ao max P.2 mmHg MV V2 mean: 47.8 cm/sec MV dec slope: 322.4 cm/sec2 Ao V2 mean: 83.3 cm/sec MV mean P.1 mmHg MVA(P1/2t): 2.6 cm2 Ao mean P.1 mmHg MV V2 VTI: 29.5 cm Ao V2 VTI: 23.7 cm AV (velocity ratio): 0.78 LV V1 max: 86.6 cm/sec PA V2 max: 108.3 cm/sec TR max des: 224.9 cm/sec LV V1 max P.0 mmHg PA V2 mean: 79.3 cm/sec TR max P.2 mmHg LV V1 mean P.6 mmHg LV V1 mean: 59.9 cm/sec LV V1 VTI: 18.5 cm ECHO/Echo Complete W/ Contrast Interpretation Summary The estimated ejection fraction is 45-50 %. Apical hypokinesis. Stage 3 diastolic dysfunction. Mild concentric left ventricular hypertrophy. Mild mitral annular calcification. Mild focal aortic valve calcification. The left atrium is severely enlarged. The study was technically difficult. Contrast injection was performed. Ordering Physician: Yassine Pugh Referring Physician: [facility] Performed By: Tawnya Gregory, MEE, RVT
--- NOTE | 2023-08-12 17:42 | ED.RN ---
CALLED [facility], TALKED TO [facility], FAXED CHART
[2023-08-12] MEDS: levETIRAcetam 500 MG Tablet PO (20:44)
[2023-08-12] MEDS: Magnesium Chloride 64 MG Delay Rel.Tablet 128 MG PO (20:44)
[2023-08-12] MEDS: Ranolazine 500 MG Tablet PO (20:44)
[2023-08-12] MEDS: SACUBITRIL/VALSARTAN 24/26 MG TABLET 1 EACH PO (20:44)
[2023-08-12] MEDS: Atorvastatin Calcium 80 MG Tablet PO (20:44)
[2023-08-12] MEDS: Pantoprazole Sodium 40 MG Tablet PO (20:44)
[2023-08-12] MEDS: Heparin Injection (Vial) 5,000 UNIT/ML VIAL 5000 UNIT SC (20:45)
[2023-08-12] MEDS: Tamsulosin HCl 0.4 MG Capsule PO (20:47)
[2023-08-12 21:52] LABS: Bedside Glucose 184 mg/dL (74-106)
--- NOTE | 2023-08-12 23:52 | CPS ---
patient placed on BIPAP at this time 16/ 3L bleed. This is our machine that is set to his home settings. tolerating just fine.
[2023-08-13] VITALS (9 sets, daily range): BP systolic 125–157; BP diastolic 71–89; PULSE 60–64; RESP 16–18; TEMP 36–36.6; O2SAT 93–100; BMI 34.2
[2023-08-13 05:11] LABS: Anion Gap 7 (5-15); BUN 15 mg/dL (7-18); BUN/Creat Ratio 23.1 RATIO (10-20); Calcium,Total 8.9 mg/dL (8.5-10.1); Chloride 105 mmol/L (98-107); Cholesterol 100 mg/dL (200); Creatinine, Serum 0.65 mg/dL (0.70-1.30); EST Glomerular Filtration Rate 128 mL/min (>60); Est Glom Filt Rate - Afr Amer 155 mL/min (>60); Estimated Creatinine Clearance 101.34 ml/min; Glucose 165 mg/dL (74-106); High Density Lipoprotein 35 mg/dL; Potassium 3.4 mmol/L (3.5-5.1); Sodium Level 140 mmol/L (136-145); Triglycerides 192 mg/dL; Very Low Density Lipoprotein 38 mg/dL (5-40)
--- NOTE | 2023-08-13 05:55 | CT_ITS ---
We are attempting to reach an attending provider to discuss findings. An addendum with communication details will be sent when the communication is complete. EXAM: CT HEAD WITHOUT INTRAVENOUS CONTRAST CLINICAL INDICATION: Neuro deficit, acute, stroke suspected TECHNIQUE: Multiple axial images were obtained of the head without intravenous contrast. This CT exam was performed using one or more of the following dose reduction techniques: automated exposure control, adjustment of the mA and/or kV according to patient size, and/or use of iterative reconstruction technique. COMPARISON: No relevant prior studies available. FINDINGS: BRAIN AND EXTRA-AXIAL SPACES: Moderate generalized atrophy. Moderate low density bilaterally in the deep white matter. No intra- or extra-axial hemorrhage. No evidence of acute infarct. No intracranial mass or mass effect. There is preservation of the [place]/white matter interface. Posterior fossa structures are unremarkable. No hydrocephalus. Basal cisterns are patent. BONES/JOINTS: Unremarkable. No discrete lytic or blastic abnormalities. SINUSES: Unremarkable as visualized. Clear. MASTOID AIR CELLS: Unremarkable. Clear. ORBITS: Visualized globes, extraocular muscles, optic nerves and retrobulbar fat appear unremarkable. CT/Brain/Head without Contrast IMPRESSION: Moderate generalized atrophy. Moderate low density bilaterally in the deep white matter. This likely represents chronic small vessel ischemic changes in the deep white matter. ASSESSMENT: ASPECTS ([place] Stroke Program Early CT Score) is 10. Electronically Signed: Flako Denton MD at 6:05 EDT ,
--- NOTE | 2023-08-13 07:38 | PCM.PN.HOSP ---
Reason for Visit Reason for Visit: Diagnoses Syncope and collapse (08/12/23) Subjective Subjective No further events. Objective Data Objective Data Vital Signs: Vital Signs Temp Pulse Resp BP Pulse Ox O2 Del Method O2 Flow Rate 36.1 C L 60 18 132/80 H 100 Bi-pap 3 08/13/23 06:00 08/13/23 06:00 08/13/23 06:00 08/13/23 06:00 08/13/23 06:00 08/13/23 06:00 08/13/23 06:00 Oxygen Flow Rate (L/min) 3 Oxygen Delivery Method Bi-pap Weight: 108.3 kg Body Mass Index (BMI) 34.2 Intake & Output: Intake and Output for Last 24 Hours 08/11/23 08/12/23 08/13/23 23:59 23:59 23:59 Intake Total 200 / 200 Output Total 300 / 300 Balance -100 / -100 Lab / Micro Data 08/12/23 12:00 08/13/23 04:19 Labs: Laboratory Results - last 24 hr 08/12/23 12:00: WBC 4.9, RBC 3.88 L, Hgb 12.0 L, Hct 36.7 L, MCV 94.6 H, MCH 30.9, MCHC 32.7, RDW Std Deviation 47.0 H, RDW Coeff of Cinda 13.7, Plt Count 134 L, MPV 10.8, Immature Gran % (Auto) 0.600, Neut % (Auto) 74.9 H, Lymph % (Auto) 14.4 L, [place] % (Auto) 7.3, Eos % (Auto) 2.4, Baso % (Auto) 0.4, Absolute Neuts (auto) 3.7, Absolute Lymphs (auto) 0.71 L, Nucleated RBC % 0, PT 14.4, INR 1.1, APTT 38.5 H, Sodium 139, Potassium 3.8, Chloride 106, Carbon Dioxide 29.0, Anion Gap 4 L, BUN 17, Creatinine 0.85, Est GFR (MDRD) Af Amer 113, Est GFR (MDRD) Non-Af 93, BUN/Creatinine Ratio 19.9, Glucose 189 H, Calcium 9.0, Troponin I High Sens 19, B-Natriuretic Peptide 199.9 H 08/12/23 14:20: Troponin I High Sens 20 08/12/23 20:42: POC Glucose 184 H 08/13/23 04:19: Sodium 140, Potassium 3.4 L, Chloride 105, Carbon Dioxide 28.0, Anion Gap 7, BUN 15, Creatinine 0.65 L, Estim Creat Clear Calc 101.34, Est GFR (MDRD) Af Amer 155, Est GFR (MDRD) Non-Af 128, BUN/Creatinine Ratio 23.1 H, Glucose 165 H, Calcium 8.9, Triglycerides 192, Cholesterol 100, LDL Cholesterol 27, VLDL Cholesterol 38, HDL Cholesterol 35 L ABG Data ABG results: ABG 08/12/23 14:39 Specimen Type ART Sample Site R Radial pH 7.38 Bicarbonate Actual 27.3 H Total CO2 29 Base Excess 2 O2 Saturation 99 O2 % 4.0 ABG pCO2 46.2 H ABG pO2 123 H O2 Delivery Device Cannula Vent Mode Not entered Radiography Diagnostic Testing: Radiology Impression Brain CT 08/12/23 12:14 IMPRESSION: 1. No CT evidence of intracranial bleeding, acute ischemic infarct or acute intracranial abnormality. 2. Chronic white matter ischemic changes in both cerebral hemispheres. 3. No interval change when compared to 04/01/2023. Electronically Signed: Adolfo Castro MD at 12:59 EDT , Chest X-Ray 08/12/23 12:30 IMPRESSION: Stable chest with no acute superimposed findings compared to the prior study. Electronically Signed: Rich Alvarez MD at 12:50 EDT , Head/Neck CTA 08/12/23 14:19 IMPRESSION: Normal CTA Head and neck with contrast. COMMENT: 1. Multiple small and mildly prominent lymph nodes in the behind the upper manubrium, the right paratracheal space, anterior paratracheal space and adjacent the left side of the transverse thoracic aorta. I am uncertain if these are benign reactive nodes. CT chest may help clarify if clinically warranted. 2. 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 3. Normal thyroid gland. 4. Normal lung apices. 5. No acute osseous abnormality of the cervical spine. Electronically Signed: Adolfo Castro MD at 15:45 EDT , Brain CT 08/13/23 05:55 IMPRESSION: Moderate generalized atrophy. Moderate low density bilaterally in the deep white matter. This likely represents chronic small vessel ischemic changes in the deep white matter. ASSESSMENT: ASPECTS ([place] Stroke Program Early CT Score) is 10. Electronically Signed: Flako Denton MD at 6:05 EDT , ADDENDUM: 08/13/23 0623 IMPRESSION: Moderate generalized atrophy. Moderate low density bilaterally in the deep white matter. This likely represents chronic small vessel ischemic changes in the deep white matter. ASSESSMENT: ASPECTS ([place] Stroke Program Early CT Score) is 10. N.B. : The above Results were Read Back by Flako Denton MD to MD Kevin, and understanding confirmed on 08/13/2023 06:16:31 (ET). Electronically Signed: Flako Denton MD at 6:05 EDT , Physical Exam Const alert and no apparent distress Constitutional Narrative: Speech is initially coarse but becomes more clear during the encounter with the patient and his . HEENT head/scalp atraumatic and moist oral mucous membranes Eyes EOMs intact bilaterally Eyes Narrative: No icterus Resp normal respiratory effort, no retractions, no use of accessory muscles and clear to auscultation bilaterally Cardio regular rate, regular rhythm, S1 normal heart sound and S2 normal heart sound GI normal to inspection, nondistended, normoactive bowel sounds, soft to palpation, non-tender and non-distended Extremity normal to inspection and no clubbing, cyanosis or edema Neuro CN's II-XII intact bilaterally Neuro Narrative: 5-5 level strength in upper extremities but without giveaway weakness. Sensorium / Orientation: awake and alert Speech: speech normal Assessment & Plan Assessment/Plan (1) Syncope: PLAN: Plan Dysarthria Pt with repeated hospitalizations for change of mental status with inconsistent exams and variable symptoms. Previously had MRIs that were negative. Concern for conversion disorder, malingering, factitious etiology neurology feels that this was a reaggravation of his strokelike symptoms with with syncope. Though I am not convinced patient actually did have a syncopal episode. syncope reported 3 syncopal episodes while lying down. Echo shows EF 45% which is similar to what it was back in February. patient's ICD interrogated and no arrhythmias. given patient's history of psychosomatic complaints, there is high-level of suspicion that this may not have been genuine. Chronic conditions: chronic hypoxic respiratory failure-patient is on 4 L at all times, he uses BiPAP at night coronary artery disease-extent unclear, patient and patient's was not able to tell me a specific reason why the patient had his pacemaker removed recently and a defibrillator implanted. Patient's desk clerk is in [place]. Patient's was asking if how she can desk clerk down here but I told her with [facility] that [facility] would need to [facility] about doing that. type 2 diabetes-patient's blood sugars will be monitored, he will remain on his present medications, seizure disorder-patient is on Keppra BPH-patient is on Flomax Discharge home
--- NOTE | 2023-08-13 08:22 | CASEMGMT ---
Social Work- Pt has HCPOA in chart naming Leni, sister, and Maryanne, [id number], as agents. MASHA Rivera
[2023-08-13 09:00] LABS: Bedside Glucose 152 mg/dL (74-106)
[2023-08-13] MEDS: Empagliflozin 25 MG Tablet PO (09:45)
[2023-08-13] MEDS: SACUBITRIL/VALSARTAN 24/26 MG TABLET 1 EACH PO (09:45)
[2023-08-13] MEDS: levETIRAcetam 500 MG Tablet PO (09:45)
[2023-08-13] MEDS: Carvedilol 25 MG Tablet PO (09:45)
[2023-08-13] MEDS: Escitalopram Oxalate 10 MG Tablet PO (09:45)
[2023-08-13] MEDS: Ranolazine 500 MG Tablet PO (09:45)
[2023-08-13] MEDS: Magnesium Chloride 64 MG Delay Rel.Tablet 128 MG PO (09:45)
[2023-08-13] MEDS: Aspirin E.C. 81 MG Tablet PO (09:45)
[2023-08-13] MEDS: Spironolactone 25 MG Tablet PO (09:45)
[2023-08-13] MEDS: Clopidogrel Bisulfate 75 MG Tablet PO (09:45)
[2023-08-13] MEDS: Furosemide 40 MG Tablet PO (09:46)
[2023-08-13] MEDS: Pantoprazole Sodium 40 MG Tablet PO (09:46)
[2023-08-13] MEDS: Finasteride 5 MG Tablet PO (09:46)
--- NOTE | 2023-08-13 10:41 | CON.PCM.NE_ITS ---
Assessment and Plan: Stroke Assessment/Plan GIOVANNY LEONARDO is a 73 M with a history of syncope, EKATERINA, CAD, CHF, COPD, SSS s/p ICP, DM who presents for evaluation of recurrent syncope and dysarthria. Currently back to baseline. Not a TNK or IR candidate. Neurological examination shows mild dysarthria (basline). Neuroimaging shows CT head negative (repeated). CTA: No LVO. LDL: 27. Suspect recrudescence of stroke symptoms from syncope. Suspect cardiogenic vs other causes of syncope Plan. 1. Continue ASA, plavix (home meds) 2.Continue statin 3. Please obtain HbA1C, ECHO, interrogate pacemaker 4. Seizure disorder: Continue keppra 5. EKATERINA. Continue CPAP 6. strict control of stroke risk factors Thanks for consult. I spent 72 minutes in evaluation and management of this patient. HPI Consult Data Date of Consult: 08/13/23 HPI Narrative HPI Narrative: GIOVANNY LEONARDO, is a 73 M who presents to the emergency room at [facility] due to 3 syncopal episodes at home which occurred while he was lying down. When he woke up this morning, his speech was not normal and he was not able to carry on a conversation or form certain words. She states the last time that she saw him well was when he went to bed last night. Patient has a history of chronic hypoxic respiratory failure and is on 4 L of oxygen continuously and BiPAP at night.Patient had significant dysarthria/expressive aphasia yesterday. He will not be able to undergo MRI due to the fact he has a defibrillator that was placed recently and the does not know if it is MRI compatible. At baseline he has mild dysarthria and he feels he is back to baseline. CT of the head was obtained that showed no evidence of intracranial bleeding, acute ischemic infarct, or acute intracranial abnormality. There was noted to be chronic white matter ischemic changes in both cerebral hemispheres, there is no change from the previous head CT that was done on 04/01/2023. Patient's EKG showed an AV sequential pacemaker with appropriate capture. CTA of the head and neck showed multiple small and mildly prominent lymph nodes behind the upper manubrium, the right paratracheal space, the anterior paratracheal space, and adjacent to the left side of the transverse thoracic aorta. 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 . FORMERLY [facility], 1928–1983 Medical History Left-sided weakness Chest pain Syncope DNR (do not resuscitate) DNR (do not resuscitate) discussion Heart failure EKATERINA (obstructive sleep apnea) Anemia Chronic hyperglycemia History of TIAs Conversion reaction Sick sinus syndrome Pacemaker battery depletion Hemiparesis, left Former smoker On home oxygen therapy Pacemaker Congestive heart failure (CHF) Myocardial infarct Chest pain Pulmonary embolism Dysarthria BiPAP (biphasic positive airway pressure) dependence Wears hearing aid in both ears Diabetes Stroke/cerebrovascular accident COPD (chronic obstructive pulmonary disease) History of fractured rib CAD (coronary artery disease) Essential (primary) hypertension Atherosclerotic heart disease [place] coronary artery w/angina pectoris EKATERINA (obstructive sleep apnea) Abnormal EKG DM type 2 (diabetes mellitus, type 2) Chronic respiratory failure Obesity Hyperlipidemia Home Medications ?Medication ?Instructions ?Recorded ?Last Taken ?Type aspirin 81 mg tablet,delayed 81 mg PO DAILY HEART HEALTH 06/11/18 08/11/23 History release atorvastatin 80 mg tablet 80 mg PO QHS CHOLESTEROL 06/11/18 08/11/23 History escitalopram oxalate 10 mg tablet 10 mg PO DAILY DEPRESSION 06/11/18 08/11/23 History finasteride 5 mg tablet 5 mg PO DAILY PROSTATE 06/11/18 08/11/23 History nitroglycerin 0.4 mg sublingual 0.4 mg sublingual Q5M PRN CHEST 07/22/18 01/17/20 Rx tablet PAIN #30 TABLETS pantoprazole 40 mg tablet,delayed 40 mg PO BID GERD 05/18/20 08/11/23 History release carvedilol 25 mg tablet 25 mg PO BID BLOOD PRESSURE 06/22/20 08/11/23 History ranolazine 500 mg tablet,extended 500 mg PO Q12H CHEST PAIN 06/22/20 08/11/23 History release,12 hr tamsulosin 0.4 mg capsule 0.4 mg PO QHS PROSTATE 08/10/20 08/11/23 History clopidogrel 75 mg tablet (Plavix) 75 mg PO DAILY BLOOD THINNER 01/07/21 08/11/23 History albuterol sulfate 2.5 mg/3 mL 2.5 mg inhalation Q6H PRN 12/12/21 08/11/23 History (0.083 %) solution for nebulization SHORTNESS OF BREATH/WHEEZING ketoconazole 2 % shampoo 1 applic topical DAILY DRY SCALP 12/12/21 03/03/23 History magnesium oxide 420 mg tablet 420 mg PO BID SUPPLEMENT 12/12/21 08/11/23 History multivitamin with minerals 1 tab PO DAILY SUPPLEMENT 12/12/21 08/11/23 History spironolactone 25 mg tablet 25 mg PO DAILY BLOOD PRESSURE 09/10/22 08/11/23 History (Aldactone) acetaminophen 325 mg tablet 650 mg PO 4X/DAY PRN PAIN 01/27/23 08/11/23 History (Tylenol) cyclobenzaprine 10 mg tablet 10 mg PO BID PRN MUSCLE SPASMS 01/27/23 08/11/23 History budesonide 160 mcg-glycopyr 9 2 inh inhalation BID SHORTNESS OF 03/04/23 08/11/23 History mcg-formot 4.8 mcg/actuation HFA BREATH inhaler (Breztri Aerosphere) carboxymethylcellulose sodium 0.5 1 drp EACH EYE TID PRN EYE DRYNESS 03/04/23 08/11/23 History % eye drops cholecalciferol (vitamin D3) 50 100 mcg PO DAILY SUPPLEMENT 03/04/23 08/11/23 History mcg (2,000 unit) capsule (D3-2000) empagliflozin 25 mg tablet 25 mg PO DAILY DIABETES 03/04/23 08/11/23 History (Jardiance) insulin regular hum U-500 conc 500 See Rx Instructions subcut BID 05/27/23 08/11/23 History unit/mL(3 mL) subcut pen (Humulin DIABETES R U-500 (Conc) Insulin Kwikpen) levetiracetam 500 mg tablet 500 mg PO BID 05/27/23 08/11/23 History phenazopyridine 100 mg tablet 100 mg PO TID PRN pain 6 doses #6 07/12/23 08/11/23 Rx (Pyridium) tabs furosemide 40 mg tablet 40 mg PO DAILY EDEMA 07/19/23 08/11/23 History sacubitril 24 mg-valsartan 26 mg 1 tab PO BID 08/12/23 08/11/23 History tablet (Entresto) Allergy/AdvReac Type Severity Reaction Status Date / Time ezetimibe Allergy Unknown Verified 07/19/23 21:32 Fish Containing Products Allergy Unknown Verified 07/19/23 21:32 glyburide Allergy Unknown Verified 07/19/23 21:32 isosorbide Allergy PT UNSURE Verified 07/19/23 21:32 OF REACTION lisinopril Allergy Unknown Verified 07/19/23 21:32 metformin Allergy Nausea Verified 07/19/23 21:32 metoprolol Allergy Unknown Verified 07/19/23 21:32 simvastatin Allergy Unknown Verified 07/19/23 21:32 tramadol Allergy Other Verified 07/19/23 21:32 iron AdvReac Mild Vomiting Verified 07/19/23 21:32 gabapentin AdvReac Other Verified 07/19/23 21:32 Family History Father No problems noted. Surgical History History of cholecystectomy History of knee replacement procedure of left knee History of permanent cardiac pacemaker placement (01/14/21) H/O coronary artery bypass surgery History of coronary artery stent placement Social History household members: spouse Smoking Status: Former smoker details: Unknown substance use type: does not use Vital Signs Vital Signs Vital Signs: 08/12/23 11:26 08/12/23 12:13 08/12/23 12:27 Temperature 96.9 F L Temperature Source Temporal Pulse Rate 60 60 Pulse Rate [Lying] Pulse Rate [Sitting (for 1 minute prior to obtaining)] Pulse Rate [Standing (for 1 minute prior to obtaining)] Pulse Strength Respiratory Rate 19 H 18 Respiratory Effort Respiratory Depth Respiratory Pattern Blood Pressure 106/92 H 140/72 H Blood Pressure [Lying] Blood Pressure [Sitting (for 1 minute prior to obtaining)] Blood Pressure [Standing (for 1 minute prior to obtaining)] Blood Pressure Mean 96 94 Blood Pressure Mean [Lying] Blood Pressure Mean [Sitting (for 1 minute prior to obtaining)] Blood Pressure Mean [Standing (for 1 minute prior to obtaining)] Blood Pressure Source Blood Pressure Position Blood Pressure Location Pulse Ox 97 100 Oxygen Delivery Method Nasal Cannula Nasal Cannula Nasal Cannula Oxygen Flow Rate (L/min) 4 2 2 08/12/23 13:00 08/12/23 13:46 08/12/23 14:00 Temperature Temperature Source Pulse Rate 60 71 Pulse Rate [Lying] 60 Pulse Rate [Sitting (for 1 minute prior to obtaining)] 60 Pulse Rate [Standing (for 1 minute prior to obtaining)] 61 Pulse Strength Respiratory Rate 18 18 Respiratory Effort Respiratory Depth Respiratory Pattern Blood Pressure 144/63 H 155/94 H Blood Pressure [Lying] 154/76 H Blood Pressure [Sitting (for 1 minute prior to obtaining)] 140/75 H Blood Pressure [Standing (for 1 minute prior to obtaining)] 134/69 H Blood Pressure Mean 90 114 Blood Pressure Mean [Lying] 102 Blood Pressure Mean [Sitting (for 1 minute prior to obtaining)] 96 Blood Pressure Mean [Standing (for 1 minute prior to obtaining)] 90 Blood Pressure Source Blood Pressure Position Blood Pressure Location Pulse Ox 99 97 Oxygen Delivery Method Room Air Nasal Cannula Oxygen Flow Rate (L/min) 2 08/12/23 16:00 08/12/23 17:00 08/12/23 18:00 Temperature 97.8 F Temperature Source Oral Pulse Rate 81 81 100 Pulse Rate [Lying] Pulse Rate [Sitting (for 1 minute prior to obtaining)] Pulse Rate [Standing (for 1 minute prior to obtaining)] Pulse Strength Respiratory Rate 16 16 17 Respiratory Effort Respiratory Depth Respiratory Pattern Blood Pressure 157/78 H 151/73 H 110/95 H Blood Pressure [Lying] Blood Pressure [Sitting (for 1 minute prior to obtaining)] Blood Pressure [Standing (for 1 minute prior to obtaining)] Blood Pressure Mean 104 99 100 Blood Pressure Mean [Lying] Blood Pressure Mean [Sitting (for 1 minute prior to obtaining)] Blood Pressure Mean [Standing (for 1 minute prior to obtaining)] Blood Pressure Source Monitor Blood Pressure Position Supine Blood Pressure Location Right Arm Pulse Ox 98 98 97 Oxygen Delivery Method Nasal Cannula Nasal Cannula Nasal Cannula Oxygen Flow Rate (L/min) 4 4 2 08/12/23 19:09 08/12/23 19:16 08/12/23 22:00 Temperature 97.8 F 96.9 F L Temperature Source Oral Temporal Pulse Rate 90 71 59 L Pulse Rate [Lying] Pulse Rate [Sitting (for 1 minute prior to obtaining)] Pulse Rate [Standing (for 1 minute prior to obtaining)] Pulse Strength Respiratory Rate 17 16 Respiratory Effort Normal Non-Labored Respiratory Depth Normal Respiratory Pattern Normal Blood Pressure 134/63 H 157/72 H Blood Pressure [Lying] Blood Pressure [Sitting (for 1 minute prior to obtaining)] Blood Pressure [Standing (for 1 minute prior to obtaining)] Blood Pressure Mean 86 100 Blood Pressure Mean [Lying] Blood Pressure Mean [Sitting (for 1 minute prior to obtaining)] Blood Pressure Mean [Standing (for 1 minute prior to obtaining)] Blood Pressure Source Monitor Monitor Blood Pressure Position Semi-Fowlers Semi-Fowlers Blood Pressure Location Right Arm Right Arm Pulse Ox 97 97 100 Oxygen Delivery Method Nasal Cannula Nasal Cannula Nasal Cannula Oxygen Flow Rate (L/min) 2 2 4 08/12/23 22:00 08/12/23 22:00 08/12/23 22:00 Temperature 96.9 F L Temperature Source Temporal Pulse Rate 59 L 59 L Pulse Rate [Lying] Pulse Rate [Sitting (for 1 minute prior to obtaining)] Pulse Rate [Standing (for 1 minute prior to obtaining)] Pulse Strength Normal (2+) Respiratory Rate 16 16 Respiratory Effort Pursed Lip Respiratory Depth Normal Respiratory Pattern Normal Blood Pressure 157/72 H Blood Pressure [Lying] Blood Pressure [Sitting (for 1 minute prior to obtaining)] Blood Pressure [Standing (for 1 minute prior to obtaining)] Blood Pressure Mean 100 Blood Pressure Mean [Lying] Blood Pressure Mean [Sitting (for 1 minute prior to obtaining)] Blood Pressure Mean [Standing (for 1 minute prior to obtaining)] Blood Pressure Source Monitor Blood Pressure Position Semi-Folers Blood Pressure Location Right Arm Pulse Ox 100 100 Oxygen Delivery Method Nasal Cannula Nasal Cannula Oxygen Flow Rate (L/min) 4 4 08/12/23 22:00 08/12/23 23:06 08/12/23 23:36 Temperature 96.9 F L Temperature Source Temporal Pulse Rate 59 L 59 L 60 Pulse Rate [Lying] Pulse Rate [Sitting (for 1 minute prior to obtaining)] Pulse Rate [Standing (for 1 minute prior to obtaining)] Pulse Strength Respiratory Rate 16 18 Respiratory Effort Respiratory Depth Respiratory Pattern Blood Pressure 157/72 H Blood Pressure [Lying] Blood Pressure [Sitting (for 1 minute prior to obtaining)] Blood Pressure [Standing (for 1 minute prior to obtaining)] Blood Pressure Mean 100 Blood Pressure Mean [Lying] Blood Pressure Mean [Sitting (for 1 minute prior to obtaining)] Blood Pressure Mean [Standing (for 1 minute prior to obtaining)] Blood Pressure Source Blood Pressure Position Blood Pressure Location Pulse Ox 100 97 Oxygen Delivery Method Nasal Cannula Oxygen Flow Rate (L/min) 4 08/13/23 02:00 08/13/23 02:52 08/13/23 04:00 Temperature 96.8 F L 97 F L Temperature Source Temporal Temporal Pulse Rate 60 64 60 Pulse Rate [Lying] Pulse Rate [Sitting (for 1 minute prior to obtaining)] Pulse Rate [Standing (for 1 minute prior to obtaining)] Pulse Strength Respiratory Rate 16 18 16 Respiratory Effort Respiratory Depth Respiratory Pattern Normal Blood Pressure 125/71 H 126/74 H Blood Pressure [Lying] Blood Pressure [Sitting (for 1 minute prior to obtaining)] Blood Pressure [Standing (for 1 minute prior to obtaining)] Blood Pressure Mean 89 91 Blood Pressure Mean [Lying] Blood Pressure Mean [Sitting (for 1 minute prior to obtaining)] Blood Pressure Mean [Standing (for 1 minute prior to obtaining)] Blood Pressure Source Monitor Monitor Blood Pressure Position Semi-Fowlers Semi-Fowlers Blood Pressure Location Right Arm Right Arm Pulse Ox 100 96 100 Oxygen Delivery Method Bi-pap Bi-pap Oxygen Flow Rate (L/min) 3 3 08/13/23 05:00 08/13/23 06:00 08/13/23 08:32 Temperature 97 F L Temperature Source Temporal Pulse Rate 60 60 Pulse Rate [Lying] Pulse Rate [Sitting (for 1 minute prior to obtaining)] Pulse Rate [Standing (for 1 minute prior to obtaining)] Pulse Strength Normal (2+) Respiratory Rate 18 Respiratory Effort Respiratory Depth Respiratory Pattern Blood Pressure 132/80 H Blood Pressure [Lying] Blood Pressure [Sitting (for 1 minute prior to obtaining)] Blood Pressure [Standing (for 1 minute prior to obtaining)] Blood Pressure Mean 97 Blood Pressure Mean [Lying] Blood Pressure Mean [Sitting (for 1 minute prior to obtaining)] Blood Pressure Mean [Standing (for 1 minute prior to obtaining)] Blood Pressure Source Monitor Blood Pressure Position Semi-Fowlers Blood Pressure Location Right Arm Pulse Ox 100 Oxygen Delivery Method Bi-pap Oxygen Flow Rate (L/min) 3 08/13/23 08:32 08/13/23 08:38 08/13/23 10:00 Temperature 97.8 F 97.5 F L Temperature Source Temporal Temporal Pulse Rate 61 60 Pulse Rate [Lying] Pulse Rate [Sitting (for 1 minute prior to obtaining)] Pulse Rate [Standing (for 1 minute prior to obtaining)] Pulse Strength Respiratory Rate 16 18 Respiratory Effort Normal Non-Labored Respiratory Depth Normal Respiratory Pattern Normal Blood Pressure 157/72 H 142/89 H Blood Pressure [Lying] Blood Pressure [Sitting (for 1 minute prior to obtaining)] Blood Pressure [Standing (for 1 minute prior to obtaining)] Blood Pressure Mean 100 106 Blood Pressure Mean [Lying] Blood Pressure Mean [Sitting (for 1 minute prior to obtaining)] Blood Pressure Mean [Standing (for 1 minute prior to obtaining)] Blood Pressure Source Monitor Blood Pressure Position Semi-Fowlers Blood Pressure Location Right Arm Pulse Ox 100 96 Oxygen Delivery Method CPAP Nasal Cannula Nasal Cannula Oxygen Flow Rate (L/min) 3 3 Weight Weight: 108.3 kg Body Mass Index (BMI) 34.2 NIHSS NIHSS Nursing Documentation NIHSS Nursing Documentation: NIHSS: Ischemic Stroke/TIA Start: 08/12/23 17:34 Text: For PCU Patients: NIH and Neuro Check every 4 Status: Active hours, PRN and with change in RN caregiver. Freq: [id number] Protocol: Activity Type Activity Date Activity User E-sign Co-sign Detail Recorded Client Recorded Date Recorded By Document 08/13/23 10:00 [employer] Desktop 08/13/23 10:20 [employer] 08/13/23 10:00 NIH Stroke Scale [NIHSS] A score of 0 is normal or asymptomatic . Total possible score is 42. Inpatient: RN or Physician to activate a stroke alert for onset of new stroke symptoms or with NIHSS increase >/= 3 points. Following change in neurological status, NIHSS will be performed per physician order or more frequently PRN. -1a. Level of Consciousness Alert; keenly responsive -1b. LOC Questions Answers BOTH questions correctly. -1c. LOC Commands Performs both tasks correctly . -2. Best Gaze Normal -3. Visual No visual loss -4. Facial Palsy Normal symmetrical movements -5a. Left Arm Drift; arm drifts downward but doesn?t hit the bed -5b. Right Arm No drift; arm holds 90 (or 45 ) degrees for full 10 seconds -6a. Left Leg Some effort against gravity ; -6b. Right Leg No drift; leg holds 30-degree position for full 5 seconds -7. Limb Ataxia Absent -8. Sensory Normal; no sensory loss -9. Best Language No aphasia; normal -10. Dysarthria Mild-to- moderate dysarthria; -11. Extinction and Inattention No abnormality -Total 4 Query Text:A score of 0 is normal or asymptomatic. Total possible score is 42 . ED: Notify Physician for NIHSS increase by > / = 3 points. Inpatient: RN or Physician to activate a stroke alert for NIHSS increase of > / = 3 points. Coma Scale [Assess] -Eye Opening Spontaneous -Motor Obeys Commands -Verbal Oriented [Total] -Coma Scale Total 15 NIHSS 1a. Level of Consciousness: Alert; keenly responsive 1b. LOC Questions: Answers BOTH questions correctly. 1c. LOC Commands: Performs both tasks correctly. 2. Best Gaze: Normal 3. Visual: No visual loss 4. Facial Palsy: Normal symmetrical movements 5a. Left Arm: No drift; arm holds 90 (or 45) degrees for full 10 seconds 5b. Right Arm: No drift; arm holds 90 (or 45) degrees for full 10 seconds 6a. Left Leg: No drift; leg holds 30-degree position for full 5 seconds 6b. Right Leg: No drift; leg holds 30-degree position for full 5 seconds 7. Limb Ataxia: Absent 8. Sensory: Normal; no sensory loss 9. Best Language: No aphasia; normal 10. Dysarthria: [id number] dysarthria; 11. Extinction and Inattention: No abnormality Total: 1 Physical Exam Neuro Neuro Narrative: Awake, alert Mild dysarthria (Baseline). No aphasia Cranial nerves 2-12 intact Moves all extremities No sensory loss or ataxia Lab / Micro Data 08/12/23 12:00 08/13/23 04:19 Labs: Laboratory Results - last 24 hr 08/12/23 12:00: WBC 4.9, RBC 3.88 L, Hgb 12.0 L, Hct 36.7 L, MCV 94.6 H, MCH 30.9, MCHC 32.7, RDW Std Deviation 47.0 H, RDW Coeff of Cinda 13.7, Plt Count 134 L, MPV 10.8, Immature Gran % (Auto) 0.600, Neut % (Auto) 74.9 H, Lymph % (Auto) 14.4 L, [place] % (Auto) 7.3, Eos % (Auto) 2.4, Baso % (Auto) 0.4, Absolute Neuts (auto) 3.7, Absolute Lymphs (auto) 0.71 L, Nucleated RBC % 0, PT 14.4, INR 1.1, APTT 38.5 H, Sodium 139, Potassium 3.8, Chloride 106, Carbon Dioxide 29.0, Anion Gap 4 L, BUN 17, Creatinine 0.85, Est GFR (MDRD) Af Amer 113, Est GFR (MDRD) Non-Af 93, BUN/Creatinine Ratio 19.9, Glucose 189 H, Calcium 9.0, Troponin I High Sens 19, B-Natriuretic Peptide 199.9 H 08/12/23 14:20: Troponin I High Sens 20 08/12/23 20:42: POC Glucose 184 H 08/13/23 04:19: Sodium 140, Potassium 3.4 L, Chloride 105, Carbon Dioxide 28.0, Anion Gap 7, BUN 15, Creatinine 0.65 L, Estim Creat Clear Calc 101.34, Est GFR (MDRD) Af Amer 155, Est GFR (MDRD) Non-Af 128, BUN/Creatinine Ratio 23.1 H, G lucose 165 H, Calcium 8.9, Triglycerides 192, Cholesterol 100, LDL Cholesterol 27, VLDL Cholesterol 38, HDL Cholesterol 35 L 08/13/23 08:42: POC Glucose 152 H ABG Data ABG results: ABG 08/12/23 14:39 Specimen Type ART Sample Site R Radial pH 7.38 Bicarbonate Actual 27.3 H Total CO2 29 Base Excess 2 O2 Saturation 99 O2 % 4.0 ABG pCO2 46.2 H ABG pO2 123 H O2 Delivery Device Cannula Vent Mode Not entered Imaging Radiology Impression Brain CT 08/12/23 12:14 IMPRESSION: 1. No CT evidence of intracranial bleeding, acute ischemic infarct or acute intracranial abnormality. 2. Chronic white matter ischemic changes in both cerebral hemispheres. 3. No interval change when compared to 04/01/2023. Electronically Signed: Adolfo Castro MD at 12:59 EDT , Chest X-Ray 08/12/23 12:30 IMPRESSION: Stable chest with no acute superimposed findings compared to the prior study. Electronically Signed: Rich Alvarez MD at 12:50 EDT , Head/Neck CTA 08/12/23 14:19 IMPRESSION: Normal CTA Head and neck with contrast. COMMENT: 1. Multiple small and mildly prominent lymph nodes in the behind the upper manubrium, the right paratracheal space, anterior paratracheal space and adjacent the left side of the transverse thoracic aorta. I am uncertain if these are benign reactive nodes. CT chest may help clarify if clinically warranted. 2. 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 3. Normal thyroid gland. 4. Normal lung apices. 5. No acute osseous abnormality of the cervical spine. Electronically Signed: Adolfo Castro MD at 15:45 EDT , Brain CT 08/13/23 05:55 IMPRESSION: Moderate generalized atrophy. Moderate low density bilaterally in the deep white matter. This likely represents chronic small vessel ischemic changes in the deep white matter. ASSESSMENT: ASPECTS ([place] Stroke Program Early CT Score) is 10. Electronically Signed: Flako Denton MD at 6:05 EDT , ADDENDUM: 08/13/23 0623 IMPRESSION: Moderate generalized atrophy. Moderate low density bilaterally in the deep white matter. This likely represents chronic small vessel ischemic changes in the deep white matter. ASSESSMENT: ASPECTS ([place] Stroke Program Early CT Score) is 10. N.B. : The above Results were Read Back by Flako Denton MD to MD Kevin, and understanding confirmed on 08/13/2023 06:16:31 (ET). Electronically Signed: Flako Denton MD at 6:05 EDT , Active Medications Active Medications Active Medications: Current Medications Generic Name Dose Route Start Last Admin Trade Name Freq PRN Reason Stop Dose Admin Acetaminophen 650 mg 08/12/23 17:34 Acetaminophen 325 Mg Tablet PO 4X/DAY PRN PAIN 1-10 Albuterol Sulfate 2.5 mg 08/12/23 17:34 Albuterol 2.5 Mg/3 Ml Vial.Neb. INHALATION Q6H PRN SHORTNESS OF BREATH/WHEEZING Aspirin 81 mg 08/13/23 08:00 08/13/23 09:45 Aspirin E.C. 81 Mg Tablet PO 81 mg DAILYCM ALEXUS Administration Atorvastatin Calcium 80 mg 08/12/23 22:00 08/12/23 20:44 Atorvastatin Calcium 80 Mg Tablet PO 80 mg QHS ALEXUS Administration Carvedilol 25 mg 08/12/23 22:00 08/13/23 09:45 Carvedilol 25 Mg Tablet PO 25 mg BID ALEXUS Administration Protocol Clopidogrel Bisulfate 75 mg 08/13/23 10:00 08/13/23 09:45 Clopidogrel Bisulfate 75 Mg Tablet PO 75 mg DAILY ALEXUS Administration Cyclobenzaprine HCl 10 mg 08/12/23 17:34 Cyclobenzaprine Hcl 10 Mg Tablet PO BID PRN MUSCLE SPASMS Empagliflozin 25 mg 08/13/23 10:00 08/13/23 09:45 Empagliflozin 25 Mg Tablet PO 25 mg DAILY ALEXUS Administration Escitalopram Oxalate 10 mg 08/13/23 10:00 08/13/23 09:45 Escitalopram Oxalate 10 Mg Tablet PO 10 mg DAILY ALEXUS Administration Finasteride 5 mg 08/13/23 10:00 08/13/23 09:46 Finasteride 5 Mg Tablet PO 5 mg DAILY ALEXUS Administration Furosemide 40 mg 08/13/23 10:00 08/13/23 09:46 Furosemide 40 Mg Tablet PO 40 mg DAILY ALEXUS Administration Protocol Glucagon 1 mg 08/12/23 17:34 Glucagon 1 Mg/Ml Syringe IM X1 PRN Hypoglycemia Protocol Glycerin/Hypromellose/Polyethylene 1 drp 08/12/23 17:58 Glycerin/Hypromellose/Siy114 15 Ml Bottle EACH EYE TID PRN EYE DRYNESS Heparin Sodium (Porcine) 5,000 unit 08/12/23 22:00 08/13/23 09:50 Heparin Injection (Vial) 5,000 Unit/Ml Vial SC Not Given Q12 ALEXUS Hydralazine HCl 5 mg 08/12/23 17:34 Hydralazine 20 Mg/Ml Vial IV 08/13/23 17:34 Q30M PRN maintain BP parameters with HR <60 Dextrose 250 mls @ 0 mls/hr 08/12/23 17:34 Dextrose 10%-Water IV .Q0M PRN HYPOGLYCEMIA Protocol As Directed Sodium Chloride 250 mls @ 15 mls/hr 08/12/23 17:44 IV .[id number] PRN Additional IVPB Infusion Sodium Chloride 250 mls @ 15 mls/hr 08/12/23 17:44 IV .[id number] PRN Saline Flush Insulin Human Lispro 0 unit 08/12/23 22:00 08/12/23 20:47 Insulin Lispro 100 Unit/Ml Insuln.Pen SC Not Given ACHS ALEXUS Protocol Insulin Human Regular 130 units 08/13/23 08:00 Insulin U-500 Units/Ml Pen SC BIDCM ALEXUS Labetalol HCl 10 - 20 mg 08/12/23 17:34 Labetalol (Prefilled) 20 Mg/4 Ml IV 08/13/23 17:34 Q10M PRN PRN maintain BP parameters with HR >/=60 Levetiracetam 500 mg 08/12/23 22:00 08/13/23 09:45 Levetiracetam 500 Mg Tablet PO 500 mg BID ALEXUS Administration Magnesium Chloride 128 mg 08/12/23 22:00 08/13/23 09:45 Magnesium Chloride 64 Mg Delay Rel.Tablet PO 128 mg BID ALEXUS Administration Ondansetron HCl 4 mg 08/12/23 17:34 Ondansetron 4 Mg/2 Ml Vial IV Q8H PRN PRN NAUSEA/VOMITING Pantoprazole Sodium 40 mg 08/12/23 22:00 08/13/23 09:46 Pantoprazole Sodium 40 Mg Tablet PO 40 mg BID ALEXUS Administration Ranolazine 500 mg 08/12/23 22:00 08/13/23 09:45 Ranolazine 500 Mg Tablet PO 500 mg BID ALEXUS Administration Sacubitril/Valsartan 1 each 08/12/23 22:00 08/13/23 09:45 Sacubitril/Valsartan 24/26 Mg Tablet PO 1 each BID ALEXUS Administration Sodium Chloride 10 - 40 ml 08/12/23 17:44 0.9% Saline Lock 10 Ml Syringe IV UD PRN SALINE FLUSH Spironolactone 25 mg 08/13/23 10:00 08/13/23 09:45 Spironolactone 25 Mg Tablet PO 25 mg DAILY ALEXUS Administration Protocol Tamsulosin HCl 0.4 mg 08/12/23 22:00 08/12/23 20:47 Tamsulosin Hcl 0.4 Mg Capsule PO 0.4 mg QHS ALEXUS Administration
[2023-08-13] MEDS: Insulin Lispro 100 UNIT/ML INSULN.PEN SC (11:42)
[2023-08-13] MEDS: Insulin U-500 UNITS/ML PEN 130 UNITS SC (11:44)
[2023-08-13 12:06] LABS: Bedside Glucose 191 mg/dL (74-106)
--- NOTE | 2023-08-13 13:20 | CASEMGMT ---
RN CM Face to Face with patient for initial transition planning/care coordination assessment. RN CM introduced self and role at [facility]. Patient sitting in chair, alert and oriented, at bedside. Patient willing to participate in assessment and is able to answer all questions appropriately. Care providers, pharmacy, and demographics verified. PCP: Steven [place] Specialists: [employer] Developer [place]; Meka Schmidt, machine bander and cellophaner helper; Preferred Pharmacy: [facility] Insurance: [place], [facility] Prescription Benefit: [place] Living Will/HPOA: , Lucina Coello LNOK: Living Arrangements: Patient lives with in a single story home with 1 step to enter. Patient states he is independent at home. Transportation: DME/HHC: Patient has shower chair, BSC, cane, walker, rollator, wheelchair, bipap, nebulizer, pusle ox, glucometer, home oxygen at 4lpm [facility] Patient [facility] been to [facility], [facility], [facility] in the past. Patient has had [facility] and [facility] in the past. Patient wishes to discharge home, denies need for home health at this time. Patient states he has no further needs or concerns at this time. CM to follow for discharge planning needs that may arise. Disposition Plan: Patient to discharge home with family support and follow-up plans in place. Vida ATKINSON, RN, CM
--- NOTE | 2023-08-13 13:58 | DS.PCM_ITS ---
Providers Date of Admission: 08/12/23 Primary Care Physician: [facility] Hospital Consultations 08/12/23 17:34 Consult: Tele-Neurology Routine Consulting Provider: [facility] Reason for Consult: Acute Ischemic Stroke/TIA EMERGENT Consult: No MD Notified: Yes Date Notified: 08/12/23 Time Notified: 18:17 Method of Notification: Answering Service Method of Consult:: Telemedicine Nursing Unit Staff Notify [facility] of Tele-Neurology Consult: Yes Reason For Visit: SYNCOPE Diagnosis Discharge Diagnosis (1) Syncope: Status: Acute Code(s): R55 - Syncope and collapse Plan Dysarthria * Pt with repeated hospitalizations for change of mental status with inconsistent exams and variable symptoms. * Previously had MRIs that were negative. * Concern for conversion disorder, malingering, factitious etiology * neurology feels that this was a reaggravation of his strokelike symptoms with with syncope. Though I am not convinced patient actually did have a syncopal episode. syncope * reported 3 syncopal episodes while lying down. * Echo shows EF 45% which is similar to what it was back in February. * patient's ICD interrogated and no arrhythmias. * given patient's history of psychosomatic complaints, there is high-level of suspicion that this may not have been genuine. Chronic conditions: * chronic hypoxic respiratory failure-patient is on 4 L at all times, he uses BiPAP at night * coronary artery disease-extent unclear, patient and patient's was not able to tell me a specific reason why the patient had his pacemaker removed recently and a defibrillator implanted. Patient's cafe server is in [place]. Patient's was asking if how she can cafe server down here but I told her with him being strictly through the [facility] that she would need to talk to the [facility] about doing that. * type 2 diabetes-patient's blood sugars will be monitored, he will remain on his present medications, * seizure disorder-patient is on Keppra * BPH-patient is on Flomax Discharge home Medications at Discharge Home Medications aspirin 81 mg tablet,delayed release 81 mg PO DAILY HEART HEALTH 06/11/18 atorvastatin 80 mg tablet 80 mg PO QHS CHOLESTEROL 06/11/18 escitalopram oxalate 10 mg tablet 10 mg PO DAILY DEPRESSION 06/11/18 finasteride 5 mg tablet 5 mg PO DAILY PROSTATE 06/11/18 nitroglycerin 0.4 mg sublingual tablet 0.4 mg sublingual Q5M PRN CHEST PAIN #30 TABLETS 07/22/18 pantoprazole 40 mg tablet,delayed release 40 mg PO BID GERD 05/18/20 carvedilol 25 mg tablet 25 mg PO BID BLOOD PRESSURE 06/22/20 ranolazine 500 mg tablet,extended release,12 hr 500 mg PO Q12H CHEST PAIN 06/22/20 tamsulosin 0.4 mg capsule 0.4 mg PO QHS PROSTATE 08/10/20 clopidogrel 75 mg tablet (Plavix) 75 mg PO DAILY BLOOD THINNER 01/07/21 albuterol sulfate 2.5 mg/3 mL (0.083 %) solution for nebulization 2.5 mg inhalation Q6H PRN SHORTNESS OF BREATH/WHEEZING 12/12/21 ketoconazole 2 % shampoo 1 applic topical DAILY DRY SCALP 12/12/21 magnesium oxide 420 mg tablet 420 mg PO BID SUPPLEMENT 12/12/21 multivitamin with minerals 1 tab PO DAILY SUPPLEMENT 12/12/21 spironolactone 25 mg tablet (Aldactone) 25 mg PO DAILY BLOOD PRESSURE 09/10/22 acetaminophen 325 mg tablet (Tylenol) 650 mg PO 4X/DAY PRN PAIN 01/27/23 cyclobenzaprine 10 mg tablet 10 mg PO BID PRN MUSCLE SPASMS 01/27/23 budesonide 160 mcg-glycopyr 9 mcg-formot 4.8 mcg/actuation HFA inhaler (Breztri Aerosphere) 2 inh inhalation BID SHORTNESS OF BREATH 03/04/23 carboxymethylcellulose sodium 0.5 % eye drops 1 drp EACH EYE TID PRN EYE DRYNESS 03/04/23 cholecalciferol (vitamin D3) 50 mcg (2,000 unit) capsule (D3-2000) 100 mcg PO DAILY SUPPLEMENT 03/04/23 empagliflozin 25 mg tablet (Jardiance) 25 mg PO DAILY DIABETES 03/04/23 insulin regular hum U-500 conc 500 unit/mL(3 mL) subcut pen (Humulin R U-500 (Conc) Insulin Kwikpen) See Rx Instructions subcut BID DIABETES 05/27/23 levetiracetam 500 mg tablet 500 mg PO BID 05/27/23 phenazopyridine 100 mg tablet (Pyridium) 100 mg PO TID PRN pain 6 doses #6 tabs 07/12/23 furosemide 40 mg tablet 40 mg PO DAILY EDEMA 07/19/23 sacubitril 24 mg-valsartan 26 mg tablet (Entresto) 1 tab PO BID 08/12/23 Hospital Course Operations None Procedures 2-D Echocardiogram Summary of Care Provided Minutes Spent on Discharge: 40 Hospital Course: Patient presents with dysarthria and reported syncope while he was lying down. Patient's speech did improve while he was here. He did have a CAT scan that was unremarkable. Patient's exam is inconsistent as he has some giveaway weakness when doing muscle strength testing. Patient did have his pacer interrogated that showed no arrhythmias. Patient has had a history of admissions for strokelike symptoms and gets worked up in all comes back unremarkable. Unfortunate patient has had a history of stroke so he is given the benefit of the doubt but repeatedly no obvious etiology was identified. Is concerned that some of this may be functional as to why that would be it is unclear. But no additional workup is necessary at this time. He did have an echocardiogram that showed an EF of 45% which is similar to what was in February. Case discussed with the patient's . Weight / BMI Weight Weight: 108.3 kg Body Mass Index (BMI) 34.2 ABG / Lab / Microbiology Data 08/12/23 12:00 08/13/23 04:19 Laboratory: Laboratory Results - last 24 hr 08/12/23 14:20: Troponin I High Sens 20 08/12/23 20:42: POC Glucose 184 H 08/13/23 04:19: Sodium 140, Potassium 3.4 L, Chloride 105, Carbon Dioxide 28.0, Anion Gap 7, BUN 15, Creatinine 0.65 L, Estim Creat Clear Calc 101.34, Est GFR (MDRD) Af Amer 155, Est GFR (MDRD) Non-Af 128, BUN/Creatinine Ratio 23.1 H, G lucose 165 H, Calcium 8.9, Triglycerides 192, Cholesterol 100, LDL Cholesterol 27, VLDL Cholesterol 38, HDL Cholesterol 35 L 08/13/23 08:42: POC Glucose 152 H 08/13/23 11:36: POC Glucose 191 H ABG: ABG 08/12/23 14:39 Specimen Type ART Sample Site R Radial pH 7.38 Bicarbonate Actual 27.3 H Total CO2 29 Base Excess 2 O2 Saturation 99 O2 % 4.0 ABG pCO2 46.2 H ABG pO2 123 H O2 Delivery Device Cannula Vent Mode Not entered Radiography Diagnostic Testing: Radiology Impression Head/Neck CTA 08/12/23 14:19 IMPRESSION: Normal CTA Head and neck with contrast. COMMENT: 1. Multiple small and mildly prominent lymph nodes in the behind the upper manubrium, the right paratracheal space, anterior paratracheal space and adjacent the left side of the transverse thoracic aorta. I am uncertain if these are benign reactive nodes. CT chest may help clarify if clinically warranted. 2. 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 3. Normal thyroid gland. 4. Normal lung apices. 5. No acute osseous abnormality of the cervical spine. Electronically Signed: Adolfo Castro MD at 15:45 EDT , Echocardiogram 08/12/23 16:37 Interpretation Summary The estimated ejection fraction is 45-50 %. Apical hypokinesis. Stage 3 diastolic dysfunction. Mild concentric left ventricular hypertrophy. Mild mitral annular calcification. Mild focal aortic valve calcification. The left atrium is severely enlarged. The study was technically difficult. Contrast injection was performed. Ordering Physician: Yassine Pugh Referring Physician: [facility] Performed By: Tawnya Gregory, RDCS, RVT Brain CT 08/13/23 05:55 IMPRESSION: Moderate generalized atrophy. Moderate low density bilaterally in the deep white matter. This likely represents chronic small vessel ischemic changes in the deep white matter. ASSESSMENT: ASPECTS ([place] Stroke Program Early CT Score) is 10. Electronically Signed: Flako Denton MD at 6:05 EDT , ADDENDUM: 08/13/23 0623 IMPRESSION: Moderate generalized atrophy. Moderate low density bilaterally in the deep white matter. This likely represents chronic small vessel ischemic changes in the deep white matter. ASSESSMENT: ASPECTS ([place] Stroke Program Early CT Score) is 10. N.B. : The above Results were Read Back by Flako Denton MD to MD Kevin, and understanding confirmed on 08/13/2023 06:16:31 (ET). Electronically Signed: Flako Denton MD at 6:05 EDT , D/C Instructions Discharge Diet: 2000 Calorie Control Diet Meaningful Use Info Meaningful Use Meaningful Use Diagnoses (Choose all that apply): None applicable Ischemic Stroke Statin Dosing Therapy Reference: STATIN DOSE THERAPY REFERENCE: * Patients > 75 years receive moderate or high dose statin therapy. * Patients 75 years or YOUNGER should receive HIGH intensity statin dose unless contraindicated. You will be required to document reason for non-treatment if statin daily dose does not meet guidelines. HIGH DOSE STATIN THERAPY DAILY Atorvastatin > than or = to 40 mg Rosuvastatin > than or = to 20 mg Amlodipine + Atorvastatin > than or = to 2.5/40 mg Ezetimibe + Simvastatin 10/80 mg Simvastatin 80mg Discharge Plan Admission Admit Date/Time: 08/12/23 16:13 Primary Reason for Your Visit: slurred speech. Attending Provider: Cirilo Styles Primary Care Provider: [facility] Consulting Providers: Regulo Tabor; Rubi Sosa; Jocelynn Castaneda; Gretchen Marvin; Nisha Dong; Ha Hoffmann; Carol Beasley; Varinder Borrero; Gabriel Downey; Edgar Tovar; Georgia Alberts; Jace Miller; Ilsa Crisostomo; Landy Lindsey; Ronda Baca; Edwin Carrillo; Nini Yu; Patrice Kowalski; Jamia Short; Dale Zendejas; Yassine Pugh Instructions Additional Instructions / Restrictions: He had symptoms were concerning for stroke but your workup here was okay. Discharge Orders/Prescriptions Prescriptions: Continued clopidogrel [Plavix] 75 mg tablet 75 mg PO DAILY levetiracetam 500 mg tablet 500 mg PO BID atorvastatin 80 MG tablet 80 mg PO QHS aspirin 81 MG tablet 81 mg PO DAILY finasteride 5 MG tablet 5 mg PO DAILY escitalopram oxalate 10 MG tablet 10 mg PO DAILY Humulin R U-500 (Conc) Kwikpen 500 unit/mL (3 mL) insulin pen See Rx Instructions subcut BID Rx Instructions: 130 units with breakfast; 130 units with dinner nitroglycerin 0.4 MG tablet, sublingual 0.4 mg sublingual Q5M PRN (Reason: CHEST PAIN ) Qty: 30 0RF pantoprazole 40 MG tablet 40 mg PO BID carvedilol 25 MG tablet 25 mg PO BID ranolazine 500 mg Tablet Extended Release 12 Hr 500 mg PO Q12H tamsulosin 0.4 MG capsule 0.4 mg PO QHS magnesium oxide 420 mg Tablet 420 mg PO BID ketoconazole 2 % Shampoo 1 applic TOPICAL DAILY albuterol sulfate 2.5 mg /3 mL (0.083 %) Solution For Nebulization 2.5 mg INHALATION Q6H PRN (Reason: SHORTNESS OF BREATH/WHEEZING ) multivitamin with minerals Tablet 1 tab PO DAILY spironolactone [Aldactone] 25 mg tablet 25 mg PO DAILY acetaminophen [Tylenol] 325 MG tablet 650 mg PO 4X/DAY PRN (Reason: PAIN ) cyclobenzaprine 10 mg tablet 10 mg PO BID PRN (Reason: MUSCLE SPASMS) Jardiance 25 mg tablet 25 mg PO DAILY carboxymethylcellulose sodium 0.5 % drops 1 drp EACH EYE TID PRN (Reason: EYE DRYNESS ) cholecalciferol (vitamin D3) [D3-2000] 50 mcg (2,000 unit) capsule 100 mcg PO DAILY Breztri Aerosphere 160-9-4.8 mcg/actuation HFA aerosol inhaler 2 inh inhalation BID Patient Comments: PT STATES THEY HAVE THE INHALER BUT IT DOES NOT WORK WELL FOR THEM Rx Instructions: RINSE MOUTH AFTER USE furosemide 40 mg Tablet 40 mg PO DAILY phenazopyridine [Pyridium] 100 mg tablet 100 mg PO TID PRN (Reason: pain) Qty: 6 0RF Entresto 24-26 mg tablet 1 tab PO BID [facility] - Within 2 Weeks Disposition Disposition (needs filled in before D/C Order can be placed): Home, Self Care Charges/Coding Visit Charges Inpatient E&M: 09140 Disch Hosp >30min
--- NOTE | 2023-08-13 15:44 | CHAPLAIN ---
Type of Pastoral Visit ___ Initial Visit ___ Follow-up Visit ___ On-call Visit ___ General Patient Visit ___ Spiritual Assessment ___ Family Conference ___ Bereavement ___ Rapid Response ___ Code Blue ___ Other (describe below) Pastoral Care Referral From ___ Patient ___ Family ___ Nurse ___ Physician ___ Brick Shader ___ Stemmer Machine ___ Other (describe below) Sacrament/Intervention ___ Active listening ___ Anointing ___ Jehovah'S Witness ___ Bereavement ___ Communion ___ Illiane exploration ___ ___ Life review ___ Prayer ___ Reconciliation ___ Sacrament of Sick ___ Supportive presence ___ Wedding ___ Other (describe below) Pastoral Comments first attempt and patient was having evaluation; second attempt and pt was being discharged
[2023-08-17 09:08] LABS: KEPPRA (LEVETIRACETAM) <2.0 ug/mL (10.0-40.0)
== END 2023-08-13 15:40 | disposition home or self-care (01) | DRG 57 ==
LOC: ED 15:58 → PCU 16:25
PROVIDERS: Admitting Provider Internal Medicine; Emergency Provider Emergency Medicine
DX: I69.322 Dysarthria following cerebral infarction (principal); J96.11 Chronic respiratory failure with hypoxia; I11.0 Hypertensive heart disease with heart failure; I50.9 Heart failure, unspecified; J44.9 Chronic obstructive pulmonary disease, unspecified; E11.65 Type 2 diabetes mellitus with hyperglycemia; G40.909 Epilepsy, unspecified, not intractable, without status epilepticus; Z79.4 Long term (current) use of insulin; E78.5 Hyperlipidemia, unspecified; I25.10 Atherosclerotic heart disease of native coronary artery without angina pectoris; G47.33 Obstructive sleep apnea (adult) (pediatric); R55 Syncope and collapse; R41.0 Disorientation, unspecified; Z99.81 Dependence on supplemental oxygen; Z79.02 Long term (current) use of antithrombotics/antiplatelets; Z79.82 Long term (current) use of aspirin; Z79.84 Long term (current) use of oral hypoglycemic drugs; Z79.899 Other long term (current) drug therapy; Z87.891 Personal history of nicotine dependence; Z95.1 Presence of aortocoronary bypass graft; Z95.5 Presence of coronary angioplasty implant and graft; Z95.810 Presence of automatic (implantable) cardiac defibrillator; N40.0 Benign prostatic hyperplasia without lower urinary tract symptoms
CPT/HCPCS: 36415; 36600; 70450; 70496; 70498; 71045; 80048; 80061; 80177; 82803; 82962; 83880; 84484; 85025; 85610; 85730; 93005; 93306; 94002; 94003; 97162; 97166; 97802; 99285; Q9957; Q9967; A4216; C8929

== ENCOUNTER 2023-08-19 17:48 | Emergency (ER) | payer OTHER, SELFPAY ==
[2023-08-19 17:50] VITALS: BP 147/68; PULSE 63; RESP 20; TEMP 36.6; O2SAT 100
--- NOTE | 2023-08-19 19:36 | CT_ITS ---
STUDY: CT BRAIN WITHOUT CONTRAST REASON FOR EXAM: Male, 73 years old. Dizziness RADIATION DOSAGE (If Supplied By Facility): CTDIvol = ( 44.99 ) mGy, DLP = ( 846.73 ) mGycm TECHNIQUE: Transaxial CT imaging of the brain was performed without administration of intravenous contrast material. Individualized dose optimization techniques were used for this CT. COMPARISON: August 13, 2023 FINDINGS: Normal soft tissue structures. Normal calvarium. There is mild cerebral atrophy with widening of the extra-axial spaces and ventricular dilatation. There are areas of decreased attenuation within the white matter tracts of the supratentorial brain, consistent with microvascular disease changes. Normal basal ganglia and thalami. Normal brainstem. Normal cerebellum. There is no intracranial hemorrhage. There are no findings of an acute ischemic infarction. Normal visualized paranasal sinuses. CT/Brain/Head without Contrast IMPRESSION: Chronic involutional changes of the brain. Electronically Signed: Shai Mcclendon MD at 20:29 EDT ,
--- NOTE | 2023-08-19 19:36 | EKG12_ITS ---
Test Reason : DIZZY Blood Pressure : / mmHG Vent. Rate : 060 BPM Atrial Rate : 060 BPM P-R Int : 190 ms QRS Dur : 146 ms QT Int : 504 ms P-R-T Axes : 075 -67 106 degrees QTc Int : 504 ms AV dual-paced rhythm Biventricular pacemaker detected Abnormal ECG Confirmed by PADILLA GUALLPA, CALI ([id number]), graphics editor NADINE FERRER ([id number]) on 08/21/2023 9:33:50 AM Referred By: Confirmed By:CALI CAUSEY MD
[2023-08-19 19:49] VITALS: PULSE 60; RESP 19; O2SAT 98
[2023-08-19 19:55] LABS: Absolute Lymphocyte Count 0.88 X10^3/uL (0.83-4.51); Absolute Neutrophil Count 3.5 X10^3/uL (2.0-7.7); Basophil# 0.01 X10^3/uL; Basophil% 0.2 % (0-1); Eosinophil# 0.13 X10^3/uL; Eosinophils% 2.6 % (0-5); Hematocrit 36.8 % (40-54); Hemoglobin 12.1 g/dL (13.0-16.5); Lymphocyte # 0.88 X10^3/ul (0.83-4.51); Lymphocyte % 17.7 % (19-41); Mean Corp Hgb Conc 32.9 g/dL (32-36); Mean Corpuscular Hgb 30.9 pg (27.0-32.0); Mean Corpuscular Volume 93.9 fL (80-94); Mean Platelet Vol. 10.6 fl (6.2-12.0); Monocyte# 0.44 X10^3/uL; Monocyte% 8.9 % (0-10); NRBC Flagged by Analyzer 0 % (0-5); Neutrophil % 70.4 % (47-70); Platelet Count 133 K/mm3 (150-450); RBC Distribution Width SD 47.7 fl (35.1-43.9); Red Blood Count 3.92 M/mm3 (4.6-6.2)
--- NOTE | 2023-08-19 19:57 | EDS_ITS ---
HPI History of Present Illness Chief Complaint: Dizziness Detail of Chief Complaint: Syncopal episode in the waiting room. Informant: patient and spouse/S.O. Onset/Context/Timing Onset: Today and Yesterday Current Severity: Mild Maximum Severity: Mild Narrative Narrative: 73-year-old male past medical history of CHF, COPD pacemaker defibrillator placed in May. History of diabetes. Today he is been dizzy last couple days. While in our waiting room today he reportedly passed out sitting in a chair. Did not fall or injure himself. It was brief. He denies any headache or chest pain. He has had chronic right flank pain that he has not been able to come up with a specific diagnosis. He denies recent illness. He denies chest or a bdominal pain. He denies nausea, vomiting diarrhea or fever. He denies any dysuria. He has had episodes like this before. Prior similar symptoms: Yes Recent Illness/Hospitalization: Yes PFSH PFS Medical History Left-sided weakness Chest pain Syncope DNR (do not resuscitate) DNR (do not resuscitate) discussion Heart failure EKATERINA (obstructive sleep apnea) Anemia Chronic hyperglycemia History of TIAs Conversion reaction Sick sinus syndrome Pacemaker battery depletion Hemiparesis, left Former smoker On home oxygen therapy Pacemaker Congestive heart failure (CHF) Myocardial infarct Chest pain Pulmonary embolism Dysarthria BiPAP (biphasic positive airway pressure) dependence Wears hearing aid in both ears Diabetes Stroke/cerebrovascular accident COPD (chronic obstructive pulmonary disease) History of fractured rib CAD (coronary artery disease) Essential (primary) hypertension 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 EKATERINA (obstructive sleep apnea) Abnormal EKG DM type 2 (diabetes mellitus, type 2) Chronic respiratory failure Obesity Hyperlipidemia Home Medications ?Medication ?Instructions ?Recorded ?Last Taken ?Type aspirin 81 mg tablet,delayed 81 mg PO DAILY HEART HEALTH 06/11/18 08/11/23 History release atorvastatin 80 mg tablet 80 mg PO QHS CHOLESTEROL 06/11/18 08/11/23 History escitalopram oxalate 10 mg tablet 10 mg PO DAILY DEPRESSION 06/11/18 08/11/23 History finasteride 5 mg tablet 5 mg PO DAILY PROSTATE 06/11/18 08/11/23 History nitroglycerin 0.4 mg sublingual 0.4 mg sublingual Q5M PRN CHEST 07/22/18 01/17/20 Rx tablet PAIN #30 TABLETS pantoprazole 40 mg tablet,delayed 40 mg PO BID GERD 05/18/20 08/11/23 History release carvedilol 25 mg tablet 25 mg PO BID BLOOD PRESSURE 06/22/20 08/11/23 History ranolazine 500 mg tablet,extended 500 mg PO Q12H CHEST PAIN 06/22/20 08/11/23 History release,12 hr tamsulosin 0.4 mg capsule 0.4 mg PO QHS PROSTATE 08/10/20 08/11/23 History clopidogrel 75 mg tablet (Plavix) 75 mg PO DAILY BLOOD THINNER 01/07/21 08/11/23 History albuterol sulfate 2.5 mg/3 mL 2.5 mg inhalation Q6H PRN 12/12/21 08/11/23 History (0.083 %) solution for nebulization SHORTNESS OF BREATH/WHEEZING ketoconazole 2 % shampoo 1 applic topical DAILY DRY SCALP 12/12/21 03/03/23 History magnesium oxide 420 mg tablet 420 mg PO BID SUPPLEMENT 12/12/21 08/11/23 History multivitamin with minerals 1 tab PO DAILY SUPPLEMENT 12/12/21 08/11/23 History spironolactone 25 mg tablet 25 mg PO DAILY BLOOD PRESSURE 09/10/22 08/11/23 History (Aldactone) acetaminophen 325 mg tablet 650 mg PO 4X/DAY PRN PAIN 01/27/23 08/11/23 History (Tylenol) cyclobenzaprine 10 mg tablet 10 mg PO BID PRN MUSCLE SPASMS 01/27/23 08/11/23 History budesonide 160 mcg-glycopyr 9 2 inh inhalation BID SHORTNESS OF 03/04/23 08/11/23 History mcg-formot 4.8 mcg/actuation HFA BREATH inhaler (Breztri Aerosphere) carboxymethylcellulose sodium 0.5 1 drp EACH EYE TID PRN EYE DRYNESS 03/04/23 08/11/23 History % eye drops cholecalciferol (vitamin D3) 50 100 mcg PO DAILY SUPPLEMENT 03/04/23 08/11/23 History mcg (2,000 unit) capsule (D3-2000) empagliflozin 25 mg tablet 25 mg PO DAILY DIABETES 03/04/23 08/11/23 History (Jardiance) insulin regular hum U-500 conc 500 See Rx Instructions subcut BID 05/27/23 08/11/23 History unit/mL(3 mL) subcut pen (Humulin DIABETES R U-500 (Conc) Insulin Kwikpen) levetiracetam 500 mg tablet 500 mg PO BID seizure 05/27/23 08/11/23 History phenazopyridine 100 mg tablet 100 mg PO TID PRN pain 6 doses #6 07/12/23 08/11/23 Rx (Pyridium) tabs furosemide 40 mg tablet 40 mg PO DAILY EDEMA 07/19/23 08/11/23 History sacubitril 24 mg-valsartan 26 mg 1 tab PO BID heart 08/12/23 08/11/23 History tablet (Entresto) Allergy/AdvReac Type Severity Reaction Status Date / Time ezetimibe Allergy Unknown Verified 08/19/23 17:51 Fish Containing Products Allergy Unknown Verified 08/19/23 17:51 glyburide Allergy Unknown Verified 08/19/23 17:51 isosorbide Allergy PT UNSURE Verified 08/19/23 17:51 OF REACTION lisinopril Allergy Unknown Verified 08/19/23 17:51 metformin Allergy Nausea Verified 08/19/23 17:51 metoprolol Allergy Unknown Verified 08/19/23 17:51 simvastatin Allergy Unknown Verified 08/19/23 17:51 tramadol Allergy Other Verified 08/19/23 17:51 iron AdvReac Mild Vomiting Verified 08/19/23 17:51 gabapentin AdvReac Other Verified 08/19/23 17:51 Family History Father No problems noted. Surgical History History of cholecystectomy History of knee replacement procedure of left knee History of permanent cardiac pacemaker placement (01/14/21) H/O coronary artery bypass surgery History of coronary artery stent placement Social History household members: spouse Smoking Status: Former smoker details: Unknown substance use type: does not use ROS ROS ED ROS Narrative Denies recent illness. Review of Systems ROS Unobtainable: Denies due to encephalopathy Constitutional Constitutional ED: Denies chills or fever(s) Eyes Eyes: Denies blurry vision ENT ENT ED: Denies ear pain Cardiovascular Cardiovascular: Denies chest pain Respiratory/Chest Respiratory/Chest: Denies cough Gastrointestinal Gastrointestinal: Denies abdominal pain Genitourinary Genitourinary ED: Denies dysuria or hematuria Musculoskeletal Musculoskeletal: Reports back pain; Denies arthralgias Integumentary Denies abscess Neurologic Neurologic: Denies headache(s) Psychiatric Psychiatric: Denies anxiety or depression Endocrine Endocrinology: Denies cold intolerance Hematologic/Lymphatic Hematologic/Lymphatic: Reports none Allergic/Immunologic Allergic/Immunologic ED: Denies mouth swelling, tongue swelling or urticaria EXAM Physical Exam Narrative Exam Narrative: Well-appearing 73-year-old male. Vital signs stable afebrile. Pulse ox 100%. No hypoxia. H EENT exam unremarkable. Neck nontender. Lungs clear to auscultation bilateral. Heart regular rhythm no murmur rate about 60. Chest wall and ribs nontender. Abdomen soft nontender. No peritoneal signs. Moving all 4 extremities. Calves are nontender without edema or cords. Equal symmetrical air value tester strength. Dorsi plantarflexion intact. Neurologically is awake and alert. No focal motor deficits. Back no reproducible pain or signs of trauma. Const Vital Signs: 08/19/23 17:50 08/19/23 19:49 08/19/23 21:00 Temperature 98 F Temperature Source Temporal Pulse Rate 63 60 60 Respiratory Rate 20 H 19 H 19 H Blood Pressure 147/68 H Blood Pressure Mean 94 Pulse Ox 100 98 97 Oxygen Delivery Method Nasal Cannula Nasal Cannula Nasal Cannula Oxygen Flow Rate (L/min) 4 4 Positive well nourished and well developed; Negative for cachectic, contractures or unkempt General Appearance ED: well developed and NAD; Negative for unkempt, cachectic, contractures, cyanotic, diaphoretic or pallor Nutritional Appearance: Negative for cachectic HEENT Reports moist mucous membranes; Denies dry mucous membranes Negative for trauma or tenderness Mouth ED: No dry mucous membranes Mouth: No dry mucous membranes Eyes PERRL and EOMs intact bilaterally General Eye ED: Negative for pale conjunctiva, scleral icterus or other Neck no lymphadenopathy, supple and no JVD General: Negative for tenderness Lymph Lymphatic: Negative for other Chest Wall inspection of chest normal and palpation of chest normal Chest: Negative for other Resp normal respiratory effort and clear to auscultation bilaterally Effort and Inspection: Negative for retractions Auscultation: Negative for rales, rhonchi, wheezes or diminished lung sounds Cardio regular rate, regular rhythm, S1 normal heart sound, S2 normal heart sound and no murmurs Palpation: Negative for palpable S3 or palpable S4 Rate: Negative for bradycardia, tachycardic or other Rhythm: Negative for abnormal rhythm GI normal to inspection, nondistended, normoactive bowel sounds, non-tender, non- distended and no masses Inspection: Negative for abdominal distention Auscultation: normoactive bowel sounds Palpation: soft; Negative for tender, guarding or rebound tenderness present Back/Spine no CVA tenderness General Back: Negative for CVA tenderness Cervical Spine: Negative for cervical spine tenderness Thoracic Spine / Upper Back: Negative for thoracic spinal tenderness Lumbar Spine / Lower Back: Negative for lumbar spinal tenderness Extremity normal to inspection General Extremety ED: Negative for edema or tenderness General Extremity: Negative for edema Neuro oriented x3 and CN's II-XII intact bilaterally Sensorium / Orientation: alert; Negative for orientation impaired, lethargic or stuporous Motor Exam: strength 5/5 throughout Psych mental status grossly normal Appearance: Negative for unkempt Attitude: No agitated Mood & Affect: Negative for depressed, anxious or tearful Skin no rashes or lesions noted, no wounds and skin turgor normal General Skin Exam: Negative for jaundice or pallor Lesions: No lesion noted Rashes: No rashes noted Trauma: Negative for abrasion MDM MDM MDM Narrative Medical decision making narrative: 73-year-old male says feels dizzy and syncopal episode today. He already has a pacemaker defibrillator. Said he was admitted to the hospital for similar event in the last several weeks. They could not specifically come up with a diagnosis. Exam benign. Undergo a cardiac workup with a CAT scan of his brain. Repeat exam unchanged at 10:25 PM. We went over all his test results. We did have his pacemaker company interrogate the pacemaker there is no acute abnormality. Patient is doing well at this time we went over all his test results. To be discharged home. History & Record Review Discussion w/independent historian: Patient and Family Additional record(s) reviewed:: Prior inpatient record, Prior outpatient record, Prior ED visit and Prior labs Lab Data Attestation: I reviewed the patient's lab results. Lab results narrative: CBC shows white count of 5. H&H 12.1 and 36 consistent with his baseline anemia. Platelets 133. Chemistries gap 6 BUN and creatinine 20 and 1.1. Glucose 232. Troponin normal 19. Chest x-ray and CAT scan chronic changes no acute process. Labs: Laboratory Results - last 24 hr 08/19/23 19:48 WBC 5.0 RBC 3.92 L Hgb 12.1 L Hct 36.8 L MCV 93.9 MCH 30.9 MCHC 32.9 RDW Std Deviation 47.7 H RDW Coeff of Cinda 14.0 Plt Count 133 L MPV 10.6 Immature Gran % (Auto) 0.200 Neut % (Auto) 70.4 H Lymph % (Auto) 17.7 L [place] % (Auto) 8.9 Eos % (Auto) 2.6 Baso % (Auto) 0.2 Absolute Neuts (auto) 3.5 Absolute Lymphs (auto) 0.88 Nucleated RBC % 0 Sodium 140 Potassium 3.6 Chloride 105 Carbon Dioxide 29.0 Anion Gap 6 BUN 20 H Creatinine 1.13 Est GFR (MDRD) Af Amer 82 Est GFR (MDRD) Non-Af 68 BUN/Creatinine Ratio 17.7 Glucose 232 H Calcium 8.6 Troponin I High Sens 19 Radiography Chest X-Ray - ED: 1 View, Read by ED Physician, Heart, Lungs, Mediastinum, Bony Structures, No Acute Disease and Chronic Changes Diagnostic Testing: Clinical Impression(s) from Imaging Studies Brain CT 08/19/23 19:36 IMPRESSION: Chronic involutional changes of the brain. Electronically Signed: Shai Mcclendon MD at 20:29 EDT , Chest X-Ray 08/19/23 20:00 IMPRESSION: Stable appearance. No acute cardiopulmonary disease. Electronically Signed: Shai Mcclendon MD at 20:37 EDT , CT of his brain no acute abnormality. Awaiting formal radiology interpretation. Chest x-ray portable single view shows chronic changes. Multiple prior rib fractures with plating. No acute process. Interpreted both by myself and the radiologist. Rhythm Strip Rhythm Strip: Paced Rate: 60 Ectopy: None EKG Initial EKG: Attestation: I personally reviewed and interpreted this EKG as follows: Interpretation: Sinus Rhythm and No Acute Injury Pattern Comments: Paced rhythm at 60. Discharge Plan Triage Chief Complaint: Dizziness ED Provider: Malcolm Chavez Dx/Rx/DC Orders Prescriptions: No Action clopidogrel [Plavix] 75 mg tablet 75 mg PO DAILY levetiracetam 500 mg tablet 500 mg PO BID atorvastatin 80 MG tablet 80 mg PO QHS aspirin 81 MG tablet 81 mg PO DAILY finasteride 5 MG tablet 5 mg PO DAILY escitalopram oxalate 10 MG tablet 10 mg PO DAILY Humulin R U-500 (Conc) Kwikpen 500 unit/mL (3 mL) insulin pen See Rx Instructions subcut BID Rx Instructions: 130 units with breakfast; 130 units with dinner nitroglycerin 0.4 MG tablet, sublingual 0.4 mg sublingual Q5M PRN (Reason: CHEST PAIN ) Qty: 30 0RF pantoprazole 40 MG tablet 40 mg PO BID carvedilol 25 MG tablet 25 mg PO BID ranolazine 500 mg Tablet Extended Release 12 Hr 500 mg PO Q12H tamsulosin 0.4 MG capsule 0.4 mg PO QHS magnesium oxide 420 mg Tablet 420 mg PO BID ketoconazole 2 % Shampoo 1 applic TOPICAL DAILY albuterol sulfate 2.5 mg /3 mL (0.083 %) Solution For Nebulization 2.5 mg INHALATION Q6H PRN (Reason: SHORTNESS OF BREATH/WHEEZING ) multivitamin with minerals Tablet 1 tab PO DAILY spironolactone [Aldactone] 25 mg tablet 25 mg PO DAILY acetaminophen [Tylenol] 325 MG tablet 650 mg PO 4X/DAY PRN (Reason: PAIN ) cyclobenzaprine 10 mg tablet 10 mg PO BID PRN (Reason: MUSCLE SPASMS) Jardiance 25 mg tablet 25 mg PO DAILY carboxymethylcellulose sodium 0.5 % drops 1 drp EACH EYE TID PRN (Reason: EYE DRYNESS ) cholecalciferol (vitamin D3) [D3-2000] 50 mcg (2,000 unit) capsule 100 mcg PO DAILY Breztri Aerosphere 160-9-4.8 mcg/actuation HFA aerosol inhaler 2 inh inhalation BID Patient Comments: PT STATES THEY HAVE THE INHALER BUT IT DOES NOT WORK WELL FOR THEM Rx Instructions: RINSE MOUTH AFTER USE furosemide 40 mg Tablet 40 mg PO DAILY phenazopyridine [Pyridium] 100 mg tablet 100 mg PO TID PRN (Reason: pain) Qty: 6 0RF Entresto 24-26 mg tablet 1 tab PO BID [facility] Provider: [facility] Referrals: [facility] [Primary Care Provider] - Print Language: Dominican
--- NOTE | 2023-08-19 20:00 | RAD_ITS ---
STUDY: X-RAY CHEST REASON FOR EXAM: Male, 73 years old. Chest pain TECHNIQUE: Single AP portable view of the chest. COMPARISON: August 12, 2023 FINDINGS: Pacemaker device on the left is stable. The lungs are clear and expanded. There is no demonstrated pleural abnormality. Sternal cerclage wires are present from a prior sternotomy. There is cardiac enlargement. Normal mediastinum and cata. Normal visualized pulmonary arteries. Normal visualized aortic arch and descending thoracic aorta. Normal visualized thoracic spine. There are stable fixation plates and screws traversing prior left rib fractures. There is no demonstrated abnormality of the visualized soft tissue structures of the upper abdomen. RAD/Chest 1 View (Portable) IMPRESSION: Stable appearance. No acute cardiopulmonary disease. Electronically Signed: Shai Mcclendon MD at 20:37 EDT ,
[2023-08-19 20:28] LABS: Anion Gap 6 (5-15); BUN 20 mg/dL (7-18); BUN/Creat Ratio 17.7 RATIO (10-20); Calcium,Total 8.6 mg/dL (8.5-10.1); Chloride 105 mmol/L (98-107); Creatinine, Serum 1.13 mg/dL (0.70-1.30); EST Glomerular Filtration Rate 68 mL/min (>60); Est Glom Filt Rate - Afr Amer 82 mL/min (>60); Glucose 232 mg/dL (74-106); Potassium 3.6 mmol/L (3.5-5.1); Sodium Level 140 mmol/L (136-145); Troponin-I HS 19 pg/mL (3.0-78.0)
[2023-08-19 21:00] VITALS: PULSE 60; RESP 19; O2SAT 97
[2023-08-19 22:33] VITALS: BP 143/72; PULSE 64; RESP 17; TEMP 36.4; O2SAT 99
== END 2023-08-19 22:43 | disposition home or self-care (01) ==
PROVIDERS: Emergency Provider Emergency Medicine; Visit Provider Emergency Medicine
DX: R55 Syncope and collapse (principal); I11.0 Hypertensive heart disease with heart failure; I50.9 Heart failure, unspecified; J44.9 Chronic obstructive pulmonary disease, unspecified; E11.9 Type 2 diabetes mellitus without complications; I25.10 Atherosclerotic heart disease of native coronary artery without angina pectoris; Z87.891 Personal history of nicotine dependence; E78.5 Hyperlipidemia, unspecified; R42 Dizziness and giddiness; Z95.810 Presence of automatic (implantable) cardiac defibrillator; Z95.1 Presence of aortocoronary bypass graft; Z95.5 Presence of coronary angioplasty implant and graft; Z90.49 Acquired absence of other specified parts of digestive tract; G47.33 Obstructive sleep apnea (adult) (pediatric); Z86.73 Personal history of transient ischemic attack (TIA), and cerebral infarction without residual deficits; I25.2 Old myocardial infarction
CPT/HCPCS: 70450; 71045; 80048; 84484; 85025; 93005; 99284; A4216

== ENCOUNTER 2023-09-05 17:09 | Emergency (ER) | payer OTHER, SELFPAY ==
[2023-09-05 17:10] VITALS: BP 127/71; PULSE 62; RESP 18; TEMP 36.1; O2SAT 100; BMI 35.4
--- NOTE | 2023-09-05 17:20 | EKG12_ITS ---
Test Reason : CP Blood Pressure : / mmHG Vent. Rate : 060 BPM Atrial Rate : 060 BPM P-R Int : 000 ms QRS Dur : 140 ms QT Int : 512 ms P-R-T Axes : 000 256 120 degrees QTc Int : 512 ms AV dual-paced rhythm Biventricular pacemaker detected Abnormal ECG Confirmed by PADILLA GUALLPA, CALI ([id number]), senior editor KENDALL ROCHE ([id number]) on 09/07/2023 11:00:18 AM Referred By: ELPIDIO/MARVIN Confirmed By:CALI CAUSEY MD
--- NOTE | 2023-09-05 17:21 | ED.VIS.CHEST ---
HPI History of Present Illness Chief Complaint: Chest Pain Narrative Narrative: 73-year-old male past medical history of pacemaker defibrillator, was checked yesterday in outside facility, also has CHF and COPD, wears 4 L of oxygen at home at all times presents with chest pain and shortness of breath. He states that it has been going on for weeks to months, but today was worse. He may have mild dyspnea on exertion. He states he has pain all over his chest and down his arm and leg. He is on Lasix. He states he gets leg swelling sometimes. He presents via EMS with chest pain and shortness of breath. [facility] Medical History ICD (implantable cardioverter-defibrillator) in place History of CAD (coronary artery disease) Lung nodule Obesity Chronic hypoxemic respiratory failure COPD (chronic obstructive pulmonary disease) Left-sided weakness Chest pain Syncope DNR (do not resuscitate) DNR (do not resuscitate) discussion Heart failure EKATERINA (obstructive sleep apnea) Anemia Chronic hyperglycemia History of TIAs Conversion reaction Sick sinus syndrome Pacemaker battery depletion Hemiparesis, left Former smoker On home oxygen therapy Pacemaker Congestive heart failure (CHF) Myocardial infarct Chest pain Pulmonary embolism Dysarthria BiPAP (biphasic positive airway pressure) dependence Wears hearing aid in both ears Diabetes Stroke/cerebrovascular accident COPD (chronic obstructive pulmonary disease) History of fractured rib CAD (coronary artery disease) Essential (primary) hypertension 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 EKATERINA (obstructive sleep apnea) Abnormal EKG DM type 2 (diabetes mellitus, type 2) Chronic respiratory failure Obesity Hyperlipidemia Home Medications ?Medication ?Instructions ?Recorded ?Last Taken ?Type aspirin 81 mg tablet,delayed 81 mg PO DAILY HEART HEALTH 06/11/18 08/11/23 History release atorvastatin 80 mg tablet 80 mg PO QHS CHOLESTEROL 06/11/18 08/11/23 History escitalopram oxalate 10 mg tablet 10 mg PO DAILY DEPRESSION 06/11/18 08/11/23 History finasteride 5 mg tablet 5 mg PO DAILY PROSTATE 06/11/18 08/11/23 History nitroglycerin 0.4 mg sublingual 0.4 mg sublingual Q5M PRN CHEST 07/22/18 01/17/20 Rx tablet PAIN #30 TABLETS pantoprazole 40 mg tablet,delayed 40 mg PO BID GERD 05/18/20 08/11/23 History release carvedilol 25 mg tablet 25 mg PO BID BLOOD PRESSURE 06/22/20 08/11/23 History ranolazine 500 mg tablet,extended 500 mg PO Q12H CHEST PAIN 06/22/20 08/11/23 History release,12 hr tamsulosin 0.4 mg capsule 0.4 mg PO QHS PROSTATE 08/10/20 08/11/23 History clopidogrel 75 mg tablet (Plavix) 75 mg PO DAILY BLOOD THINNER 01/07/21 08/11/23 History albuterol sulfate 2.5 mg/3 mL 2.5 mg inhalation Q6H PRN 12/12/21 08/11/23 History (0.083 %) solution for nebulization SHORTNESS OF BREATH/WHEEZING ketoconazole 2 % shampoo 1 applic topical DAILY DRY SCALP 12/12/21 03/03/23 History magnesium oxide 420 mg tablet 420 mg PO BID SUPPLEMENT 12/12/21 08/11/23 History multivitamin with minerals 1 tab PO DAILY SUPPLEMENT 12/12/21 08/11/23 History spironolactone 25 mg tablet 25 mg PO DAILY BLOOD PRESSURE 09/10/22 08/11/23 History (Aldactone) acetaminophen 325 mg tablet 650 mg PO 4X/DAY PRN PAIN 01/27/23 08/11/23 History (Tylenol) cyclobenzaprine 10 mg tablet 10 mg PO BID PRN MUSCLE SPASMS 01/27/23 08/11/23 History budesonide 160 mcg-glycopyr 9 2 inh inhalation BID SHORTNESS OF 03/04/23 08/11/23 History mcg-formot 4.8 mcg/actuation HFA BREATH inhaler (Breztri Aerosphere) carboxymethylcellulose sodium 0.5 1 drp EACH EYE TID PRN EYE DRYNESS 03/04/23 08/11/23 History % eye drops cholecalciferol (vitamin D3) 50 100 mcg PO DAILY SUPPLEMENT 03/04/23 08/11/23 History mcg (2,000 unit) capsule (D3-2000) empagliflozin 25 mg tablet 25 mg PO DAILY DIABETES 03/04/23 08/11/23 History (Jardiance) insulin regular hum U-500 conc 500 See Rx Instructions subcut BID 05/27/23 08/11/23 History unit/mL(3 mL) subcut pen (Humulin DIABETES R U-500 (Conc) Insulin Kwikpen) levetiracetam 500 mg tablet 500 mg PO BID seizure 05/27/23 08/11/23 History phenazopyridine 100 mg tablet 100 mg PO TID PRN pain 6 doses #6 07/12/23 08/11/23 Rx (Pyridium) tabs furosemide 40 mg tablet 40 mg PO DAILY EDEMA 07/19/23 08/11/23 History sacubitril 24 mg-valsartan 26 mg 1 tab PO BID heart 08/12/23 08/11/23 History tablet (Entresto) Allergy/AdvReac Type Severity Reaction Status Date / Time ezetimibe Allergy Unknown Verified 09/05/23 17:21 Fish Containing Products Allergy Unknown Verified 09/05/23 17:21 glyburide Allergy Unknown Verified 09/05/23 17:21 isosorbide Allergy PT UNSURE Verified 09/05/23 17:21 OF REACTION lisinopril Allergy Unknown Verified 09/05/23 17:21 metformin Allergy Nausea Verified 09/05/23 17:21 metoprolol Allergy Unknown Verified 09/05/23 17:21 simvastatin Allergy Unknown Verified 09/05/23 17:21 tramadol Allergy Other Verified 09/05/23 17:21 iron AdvReac Mild Vomiting Verified 09/05/23 17:21 gabapentin AdvReac Other Verified 09/05/23 17:21 Family History Father No problems noted. Surgical History History of cholecystectomy History of knee replacement procedure of left knee History of permanent cardiac pacemaker placement (01/14/21) H/O coronary artery bypass surgery History of coronary artery stent placement Social History household members: spouse Smoking Status: Former smoker details: Unknown substance use type: does not use ROS ROS ED ROS Narrative Constitutional: No fever, no chills. No diaphoresis. HEENT: No sore throat. No neck pain. No loss of vision. No rhinorrhea. Cardiovascular: Positive chest pain. No palpitations. No pedal edema. Respiratory: No cough, positive shortness of breath. Abdominal: No abdominal pain. No nausea. No vomiting. Genitourinary: No dysuria. No hematuria. Musculoskeletal: No myalgias. No arthralgias. Neurologic: No headaches. No dizziness. No lightheadedness. Skin: No rash. No change in color. Psychiatric: No depression. No anxiety. EXAM Physical Exam Narrative Exam Narrative: Afebrile. Vital signs noted. HEENT: Normocephalic. Atraumatic. PERRL, EOMI. Neck soft and supple. No point tenderness or step off. Cardiovascular: Regular rate and rhythm. No murmurs, rubs, or gallops appreciated. Respiratory: No tachypnea. Lungs clear to auscultation bilaterally. Bibasilar rales on occasion. Gastrointestinal: Abdomen soft, nontender, with normoactive bowel sounds. No rebound or guarding. Neurological: Awake. Alert. Nonfocal, nonlateralizing. Skin: No rash. Normal color. No pallor. Musculoskeletal: No pedal edema. Full range of motion extremities. Const Vital Signs: 09/05/23 17:10 09/05/23 17:22 09/05/23 18:09 Temperature 97 F L Temperature Source Temporal Pulse Rate 62 60 Respiratory Rate 18 14 Blood Pressure 127/71 H 139/69 H Blood Pressure Mean 89 92 Pulse Ox 100 94 Oxygen Delivery Method Nasal Cannula Nasal Cannula Nasal Cannula Oxygen Flow Rate (L/min) 4 4 4 09/05/23 19:00 09/05/23 19:56 Temperature Temperature Source Pulse Rate 61 60 Respiratory Rate 16 15 Blood Pressure 149/75 H 156/74 H Blood Pressure Mean 99 101 Pulse Ox 100 100 Oxygen Delivery Method Room Air Room Air Oxygen Flow Rate (L/min) MDM MDM MDM Narrative Medical decision making narrative: In the differential diagnosis is COPD exacerbation versus CHF versus a combination of both versus ACS. I have low suspicion for pneumothorax or pneumonia because he has equal breath sounds and his history and physical does not support pneumonia. Current pulse ox is 100% on his 4 L nasal cannula oxygen. Patient complaining of pain so he was administered fentanyl 25 mcg intravenously as he has allergies to tramadol and gabapentin and is having pain all over. Chest pain workup was pursued. EKG obtained and interpreted by myself independently as AV dual paced rhythm at 60 bpm without ectopy, no acute ST changes. I reviewed his laboratory work and he has normal white count of 5.8, hemoglobin stable 11.4 with hematocrit 34.8. Platelet count slightly low at 129. This is a chronic, intermittent thrombocytopenia when compared to previous laboratory values. I do not feel he requires platelet transfusion. Electrolyte panel is grossly unremarkable except for BUN of 19 with creatinine 1.0, glucose elevated at 122 but normal anion gap of 6. Magnesium normal at 1.9. BNP is elevated at 138 but it has been above 200 in the past. Initial high-sensitivity troponin 18 with repeat at 21 for a negative delta troponin. Chest x-ray interpreted by myself shows chronic changes but no acute process, no pneumonia or pneumothorax especially when compared to previous. There are postsurgical changes. I reviewed the radiology report which confirms my independent interpretation. At this point in time, he has good oxygen saturation, and is feeling improved. I feel he can be discharged to follow-up with his physicians at the [facility]. Return instructions reviewed. Disposition is discharged home in stable condition. History & Record Review Discussion w/independent historian: Patient Additional record(s) reviewed:: Prior labs Lab Data Attestation: I reviewed the patient's lab results. Labs: Laboratory Results - last 24 hr 09/05/23 09/05/23 17:44 20:00 WBC 5.8 RBC 3.75 L Hgb 11.4 L Hct 34.8 L MCV 92.8 MCH 30.4 MCHC 32.8 RDW Std Deviation 46.2 H RDW Coeff of Cinda 13.9 Plt Count 129 L MPV 10.3 Immature Gran % (Auto) 0.200 Neut % (Auto) 72.6 H Lymph % (Auto) 17.0 L Pope % (Auto) 8.0 Eos % (Auto) 1.9 Baso % (Auto) 0.3 Absolute Neuts (auto) 4.2 Absolute Lymphs (auto) 0.98 Nucleated RBC % 0 Sodium 142 Potassium 3.7 Chloride 107 Carbon Dioxide 29.0 Anion Gap 6 BUN 19 H Creatinine 1.00 Estim Creat Clear Calc 82.37 Est GFR (MDRD) Af Amer 94 Est GFR (MDRD) Non-Af 78 BUN/Creatinine Ratio 19.0 Glucose 122 H Calcium 8.5 Magnesium 1.9 Troponin I High Sens 18 21 B-Natriuretic Peptide 138.3 H Radiography Diagnostic Testing: Clinical Impression(s) from Imaging Studies Chest X-Ray 09/05/23 17:50 IMPRESSION: 1. Postoperative changes of prior CABG, transvenous pacer/AICD system without change. 2. Stable extensive postoperative changes involving LEFT rib cage. 3. No evidence of acute cardiopulmonary process. No congestive failure infiltrate or effusion. Electronically Signed: Ashish John MD at 18:09 EDT , Discharge Plan Triage Chief Complaint: Chest Pain ED Provider: Adolfo Quevedo Dx/Rx/DC Orders Clinical Impression: Chest pain, SOB (shortness of breath) Instructions: ED Chest Pain, Uncertain Cause, ED Dyspnea Prescriptions: No Action clopidogrel [Plavix] 75 mg tablet 75 mg PO DAILY levetiracetam 500 mg tablet 500 mg PO BID atorvastatin 80 MG tablet 80 mg PO QHS aspirin 81 MG tablet 81 mg PO DAILY finasteride 5 MG tablet 5 mg PO DAILY escitalopram oxalate 10 MG tablet 10 mg PO DAILY Humulin R U-500 (Conc) Kwikpen 500 unit/mL (3 mL) insulin pen See Rx Instructions subcut BID Rx Instructions: 130 units with breakfast; 130 units with dinner nitroglycerin 0.4 MG tablet, sublingual 0.4 mg sublingual Q5M PRN (Reason: CHEST PAIN ) Qty: 30 0RF pantoprazole 40 MG tablet 40 mg PO BID carvedilol 25 MG tablet 25 mg PO BID ranolazine 500 mg Tablet Extended Release 12 Hr 500 mg PO Q12H tamsulosin 0.4 MG capsule 0.4 mg PO QHS magnesium oxide 420 mg Tablet 420 mg PO BID ketoconazole 2 % Shampoo 1 applic TOPICAL DAILY albuterol sulfate 2.5 mg /3 mL (0.083 %) Solution For Nebulization 2.5 mg INHALATION Q6H PRN (Reason: SHORTNESS OF BREATH/WHEEZING ) multivitamin with minerals Tablet 1 tab PO DAILY spironolactone [Aldactone] 25 mg tablet 25 mg PO DAILY acetaminophen [Tylenol] 325 MG tablet 650 mg PO 4X/DAY PRN (Reason: PAIN ) cyclobenzaprine 10 mg tablet 10 mg PO BID PRN (Reason: MUSCLE SPASMS) Jardiance 25 mg tablet 25 mg PO DAILY carboxymethylcellulose sodium 0.5 % drops 1 drp EACH EYE TID PRN (Reason: EYE DRYNESS ) cholecalciferol (vitamin D3) [D3-2000] 50 mcg (2,000 unit) capsule 100 mcg PO DAILY Brealicetri Aerosphere 160-9-4.8 mcg/actuation HFA aerosol inhaler 2 inh inhalation BID Patient Comments: PT STATES THEY HAVE THE INHALER BUT IT DOES NOT WORK WELL FOR THEM Rx Instructions: RINSE MOUTH AFTER USE furosemide 40 mg Tablet 40 mg PO DAILY phenazopyridine [Pyridium] 100 mg tablet 100 mg PO TID PRN (Reason: pain) Qty: 6 0RF Entresto 24-26 mg tablet 1 tab PO BID [facility] Care Provider[facility] [[facility] - 3-5 Days if not improving Activity Restrictions/Additional Instructions: Continue to wear your oxygen. [facility] Return with new or worsening symptoms. Print Language: Luxembourgish Disposition Disposition: Home, Self Care
--- NOTE | 2023-09-05 17:50 | RAD_ITS ---
INDICATION: chest pain EXAMINATION/TECHNIQUE: X-RAY - XR Chest 1 View COMPARISON: 08/19/2023 FINDINGS: LIFE-SUPPORT AND LINES: 1. Mediastinal wires and vascular clips are present. 2. Transvenous pacer/AICD system is without change. 3. Extensive postoperative changes including rib plating without change. HEART AND VESSELS: The cardiac silhouette, pulmonary vasculature have normal appearance. No evidence of congestive failure. LUNGS AND PLEURAL SPACES: Lungs are clear. No focal infiltrate, consolidation or effusions. No evidence of pneumothorax. No pulmonary mass is noted. MEDIASTINUM AND HILAR REGIONS: No masses adenopathy noted. No areas of calcification. Visualized upper airway is normal in position. BONY ELEMENTS: Postop stabilization LEFT rib cage, healed RIGHT clavicular fracture. No acute bony changes. RAD/Chest 1 View (Portable) IMPRESSION: 1. Postoperative changes of prior CABG, transvenous pacer/AICD system without change. 2. Stable extensive postoperative changes involving LEFT rib cage. 3. No evidence of acute cardiopulmonary process. No congestive failure infiltrate or effusion. Electronically Signed: Ashish John MD at 18:09 EDT ,
[2023-09-05 17:54] LABS: Absolute Lymphocyte Count 0.98 X10^3/uL (0.83-4.51); Absolute Neutrophil Count 4.2 X10^3/uL (2.0-7.7); Basophil# 0.02 X10^3/uL; Basophil% 0.3 % (0-1); Eosinophil# 0.11 X10^3/uL; Eosinophils% 1.9 % (0-5); Hematocrit 34.8 % (40-54); Hemoglobin 11.4 g/dL (13.0-16.5); Lymphocyte # 0.98 X10^3/ul (0.83-4.51); Mean Corp Hgb Conc 32.8 g/dL (32-36); Mean Corpuscular Hgb 30.4 pg (27.0-32.0); Mean Corpuscular Volume 92.8 fL (80-94); Mean Platelet Vol. 10.3 fl (6.2-12.0); Monocyte# 0.46 X10^3/uL; NRBC Flagged by Analyzer 0 % (0-5); Neutrophil # 4.18 X10^3/uL (2.7-7.7); Neutrophil % 72.6 % (47-70); Platelet Count 129 K/mm3 (150-450); RBC Distribution Width CV 13.9 % (11.6-14.6); RBC Distribution Width SD 46.2 fl (35.1-43.9); Red Blood Count 3.75 M/mm3 (4.6-6.2); White Blood Count 5.8 K/mm3 (4.4-11.0)
[2023-09-05 18:09] VITALS: BP 139/69; PULSE 60; RESP 14; O2SAT 94
[2023-09-05 18:10] LABS: BNP,B-Type NATRIURETIC PEPTIDE 138.3 pg/mL (0-100)
[2023-09-05 18:16] LABS: Anion Gap 6 (5-15); BUN 19 mg/dL (7-18); Calcium,Total 8.5 mg/dL (8.5-10.1); Chloride 107 mmol/L (98-107); EST Glomerular Filtration Rate 78 mL/min (>60); Est Glom Filt Rate - Afr Amer 94 mL/min (>60); Estimated Creatinine Clearance 82.37 ml/min; Glucose 122 mg/dL (74-106); Magnesium 1.9 mg/dL (1.6-2.6); Potassium 3.7 mmol/L (3.5-5.1); Sodium Level 142 mmol/L (136-145); Troponin-I HS (w/2H Reflex) 18 pg/mL (3.0-78.0)
[2023-09-05] MEDS: fentaNYL 100 MCG/2 ML Ampul 25 MCG IV (18:28)
[2023-09-05 19:00] VITALS: BP 149/75; PULSE 61; RESP 16; O2SAT 100
[2023-09-05 19:51] LABS: Reflex Troponin-HS? (from REC) Y
[2023-09-05 19:56] VITALS: BP 156/74; PULSE 60; RESP 15; O2SAT 100
[2023-09-05 20:32] LABS: Troponin-I HS 21 pg/mL (3.0-78.0)
[2023-09-05 20:56] VITALS: BP 173/85; PULSE 56; RESP 18; TEMP 36.6; O2SAT 99
[2023-09-05 21:00] VITALS: BP 167/78; PULSE 60; RESP 17; O2SAT 100
== END 2023-09-05 21:04 | disposition home or self-care (01) ==
PROVIDERS: Emergency Provider Emergency Medicine; Visit Provider Emergency Medicine
DX: R07.9 Chest pain, unspecified (principal); I11.0 Hypertensive heart disease with heart failure; I50.9 Heart failure, unspecified; J44.9 Chronic obstructive pulmonary disease, unspecified; E11.65 Type 2 diabetes mellitus with hyperglycemia; Z79.4 Long term (current) use of insulin; R06.02 Shortness of breath; I25.10 Atherosclerotic heart disease of native coronary artery without angina pectoris; I25.2 Old myocardial infarction; Z95.810 Presence of automatic (implantable) cardiac defibrillator; Z95.1 Presence of aortocoronary bypass graft; Z95.5 Presence of coronary angioplasty implant and graft; Z99.81 Dependence on supplemental oxygen; Z79.84 Long term (current) use of oral hypoglycemic drugs; Z79.02 Long term (current) use of antithrombotics/antiplatelets; Z79.899 Other long term (current) drug therapy; Z87.891 Personal history of nicotine dependence
CPT/HCPCS: 71045; 80048; 83735; 83880; 84484; 85025; 93005; 96374; 99283; A4216

== ENCOUNTER 2023-09-11 17:28 | Emergency (ER) | payer OTHER, SELFPAY ==
[2023-09-11] VITALS (9 sets, daily range): BP systolic 120–159; BP diastolic 63–69; PULSE 60–89; RESP 14–18; TEMP 36.3–36.6; O2SAT 88–100; BMI 33.0
--- NOTE | 2023-09-11 17:33 | CT_ITS ---
INDICATION: Neuro deficit, acute, stroke suspected EXAMINATION: CT BRAIN - CT Head Stroke Protocol W/O Contrast Injection TECHNIQUE: Multiple axial images were obtained of the head without intravenous contrast. The protocol utilizes one or more of the following dose reduction techniques: automated exposure control, adjustment of mA and/or kV according to patient size,and/or use of iterative reconstruction technique. IV Contrast dosage and agent: None. COMPARISON: FINDINGS: BRAIN PARENCHYMA: No intra- or extra-axial hemorrhage. No evidence of acute infarct. No intracranial mass or mass effect. Mild bilateral white matter microangiopathic ischemic changes. Posterior fossa structures are unremarkable. CSF SPACES: Slightly prominent with mild atrophy. No hydrocephalus. Basal cisterns are patent. CALVARIUM, SKULL BASE, PARANASAL SINUSES AND MASTOID AIR CELLS: Clear. No discrete lytic or blastic abnormalities. ORBITS: Both globes, extraocular muscles, optic nerves and retrobulbar fat appear unremarkable. CT/STROKE Brain/Head without Cont IMPRESSION: Age-related changes. N.B. : The above Results were Read Back by Ever Raines DO to Gerard Weeks DO, and understanding confirmed on 09/11/2023 17:52:24 (ET). Electronically Signed: Ever Raines DO at 18:00 EDT Reading Location ID and State: [facility] / [place] Tel [phone], Service support ,
--- NOTE | 2023-09-11 17:33 | CT_ITS ---
We are attempting to reach an attending provider to discuss findings. An addendum with communication details will be sent when the communication is complete. INDICATION: Neuro deficit, acute, stroke suspected EXAMINATION: CTA HEAD, AND CTA NECK TECHNIQUE: Routine carotid CT angiogram protocol was performed without and with IV contrast. In addition, images were obtained of the [place]. NASCET criteria using the distal ICAs for comparison were used for evaluation of stenoses. 3D reconstructions were reviewed. The protocol utilizes one or more of the following dose reduction techniques: automated exposure control, adjustment of mA and/or kV according to patient size,and/or use of iterative reconstruction technique. IV Contrast dosage and agent: COMPARISON: August 12, 2023 FINDINGS: --CTA NECK: AORTIC ARCH AND BRANCHES: Normal anatomy, patent. Mild calcifications at the origin of the great vessels. RIGHT CCA: No occlusion, significant stenosis or dissection. Minimal atherosclerotic calcifications. RIGHT CAROTID BULB: Mild atherosclerotic calcifications with no hemodynamically significant stenosis. RIGHT ICA: No occlusion, significant stenosis or dissection. LEFT CCA: No occlusion, significant stenosis or dissection. Minimal atherosclerotic calcifications. LEFT CAROTID BULB: Mild atherosclerotic calcifications with no hemodynamically significant stenosis. LEFT ICA: No occlusion, significant stenosis or dissection. RIGHT VERTEBRAL ARTERY: No occlusion, significant stenosis or dissection. Mild calcification at the origin. LEFT VERTEBRAL ARTERY: No occlusion, significant stenosis or dissection. Mild calcification at the origin. NECK SOFT TISSUES: Mediastinal adenopathy.. --CTA HEAD: --Anterior circulation: ICAs: Calcifications at the cavernous segments bilaterally of the internal carotid arteries with up to 50% luminal stenosis. ACAs: No significant stenosis at the visualized segments. ACOM: Present. MCAs: No significant stenosis at the visualized segments. --Posterior circulation: PCOMs: Nonvisualization bilaterally. missile tracking technician: No significant stenosis at the visualized segments. BASILAR ARTERY: No significant stenosis. VERTEBRAL ARTERIES: No significant stenosis at the intradural/visualized segments. No evidence of intracranial aneurysm or vascular malformation. CT/STROKE CTA Head AND Neck W/Con IMPRESSION: Calcifications at the cavernous segments bilaterally of the internal carotid arteries with up to 50% luminal stenosis. Mediastinal adenopathy. No significant interval changes. Electronically Signed: Ever Raines DO at 18:19 EDT ,
--- NOTE | 2023-09-11 17:33 | EKG12_ITS ---
Test Reason : Blood Pressure : / mmHG Vent. Rate : 070 BPM Atrial Rate : 070 BPM P-R Int : 130 ms QRS Dur : 160 ms QT Int : 492 ms P-R-T Axes : 071 256 094 degrees QTc Int : 531 ms Atrial-sensed ventricular-paced rhythm Biventricular pacemaker detected Abnormal ECG Confirmed by BRYN GUALLPA, JULIO C ([id number]), business editor DALIA AMIN ([id number]) on 09/15/2023 2:00:33 PM Referred By: Confirmed By:BELEN CLEMENTE MD
--- NOTE | 2023-09-11 17:45 | ED.RN ---
dr. love states do not need to do tele neuro at this time
[2023-09-11 18:01] LABS: Absolute Lymphocyte Count 0.99 X10^3/uL (0.83-4.51); Absolute Neutrophil Count 4.7 X10^3/uL (2.0-7.7); Basophil# 0.02 X10^3/uL; Basophil% 0.3 % (0-1); Eosinophil# 0.12 X10^3/uL; Eosinophils% 1.9 % (0-5); Hematocrit 37.9 % (40-54); Hemoglobin 12.7 g/dL (13.0-16.5); Lymphocyte # 0.99 X10^3/ul (0.83-4.51); Lymphocyte % 15.5 % (19-41); Mean Corp Hgb Conc 33.5 g/dL (32-36); Mean Corpuscular Hgb 31.1 pg (27.0-32.0); Mean Corpuscular Volume 92.7 fL (80-94); Monocyte# 0.52 X10^3/uL; Monocyte% 8.2 % (0-10); NRBC Flagged by Analyzer 0 % (0-5); Neutrophil % 73.6 % (47-70); Platelet Count 143 K/mm3 (150-450); RBC Distribution Width CV 13.6 % (11.6-14.6); Red Blood Count 4.09 M/mm3 (4.6-6.2); White Blood Count 6.4 K/mm3 (4.4-11.0)
--- NOTE | 2023-09-11 18:05 | RAD_ITS ---
INDICATION: Neuro deficit, acute, stroke suspected EXAMINATION/TECHNIQUE: X-RAY - XR Chest 1 View COMPARISON: September 05, 2023 FINDINGS: LINES/DEVICES: Stable left-sided pacemaker and sternotomy wires. LUNGS: No consolidation, edema or effusion. No pneumothorax. MEDIASTINUM AND CARDIOVASCULAR STRUCTURES: Cardiac silhouette is enlarged. Central airways and mediastinal contour are unremarkable. BONES AND SOFT TISSUES: ORIF of the left rib cage. Old left clavicular fracture. RAD/Chest 1 View IMPRESSION: Cardiomegaly. Electronically Signed: Ever Raines DO at 20:16 EDT Reading Location ID and State: [facility] / [place] Tel [phone], Service support ,
[2023-09-11 18:12] LABS: International Normalized Ratio 1.1; Prothrombin Time (Protime)PT. 14.4 SECONDS (11.7-14.9)
[2023-09-11 18:13] LABS: Partial Thromboplast Time 41.5 Seconds (24.1-36.2)
--- NOTE | 2023-09-11 18:14 | EDS_ITS ---
HPI History of Present Illness Chief Complaint: Stroke Alert Informant: spouse/S.O. and EMS Narrative Narrative: 73-year-old male was brought to the emergency department by EMS as a prehospital stroke alert. Patient with multiple hospital and ED visits this year. Multiple medical problems. He reportedly underwent heart catheterization recently at [facility] that did not require intervention. He was eating at local restaurant when he got up and when he came back informed his that he felt very shaky. He then began to have difficulty speaking and moving. EMS notes that he is not moving either side of his body and that they cannot understand any of the words that he was saying. They note that he is not really following commands. [facility] Medical History ICD (implantable cardioverter-defibrillator) in place History of CAD (coronary artery disease) Lung nodule Obesity Chronic hypoxemic respiratory failure COPD (chronic obstructive pulmonary disease) Left-sided weakness Chest pain Syncope DNR (do not resuscitate) DNR (do not resuscitate) discussion Heart failure EKATERINA (obstructive sleep apnea) Anemia Chronic hyperglycemia History of TIAs Conversion reaction Sick sinus syndrome Pacemaker battery depletion Hemiparesis, left Former smoker On home oxygen therapy Pacemaker Congestive heart failure (CHF) Myocardial infarct Chest pain Pulmonary embolism Dysarthria BiPAP (biphasic positive airway pressure) dependence Wears hearing aid in both ears Diabetes Stroke/cerebrovascular accident COPD (chronic obstructive pulmonary disease) History of fractured rib CAD (coronary artery disease) Essential (primary) hypertension Atherosclerotic heart disease black[place] coronary artery w/angina pectoris EKATERINA (obstructive sleep apnea) Abnormal EKG DM type 2 (diabetes mellitus, type 2) Chronic respiratory failure Obesity Hyperlipidemia Home Medications ?Medication ?Instructions ?Recorded ?Last Taken ?Type aspirin 81 mg tablet,delayed 81 mg PO DAILY HEART HEALTH 06/11/18 08/11/23 History release atorvastatin 80 mg tablet 80 mg PO QHS CHOLESTEROL 06/11/18 08/11/23 History escitalopram oxalate 10 mg tablet 10 mg PO DAILY DEPRESSION 06/11/18 08/11/23 History finasteride 5 mg tablet 5 mg PO DAILY PROSTATE 06/11/18 08/11/23 History nitroglycerin 0.4 mg sublingual 0.4 mg sublingual Q5M PRN CHEST 07/22/18 01/17/20 Rx tablet PAIN #30 TABLETS pantoprazole 40 mg tablet,delayed 40 mg PO BID GERD 05/18/20 08/11/23 History release carvedilol 25 mg tablet 25 mg PO BID BLOOD PRESSURE 06/22/20 08/11/23 History ranolazine 500 mg tablet,extended 500 mg PO Q12H CHEST PAIN 06/22/20 08/11/23 History release,12 hr tamsulosin 0.4 mg capsule 0.4 mg PO QHS PROSTATE 08/10/20 08/11/23 History clopidogrel 75 mg tablet (Plavix) 75 mg PO DAILY BLOOD THINNER 01/07/21 08/11/23 History albuterol sulfate 2.5 mg/3 mL 2.5 mg inhalation Q6H PRN 12/12/21 08/11/23 History (0.083 %) solution for nebulization SHORTNESS OF BREATH/WHEEZING ketoconazole 2 % shampoo 1 applic topical DAILY DRY SCALP 12/12/21 03/03/23 History magnesium oxide 420 mg tablet 420 mg PO BID SUPPLEMENT 12/12/21 08/11/23 History multivitamin with minerals 1 tab PO DAILY SUPPLEMENT 12/12/21 08/11/23 History spironolactone 25 mg tablet 25 mg PO DAILY BLOOD PRESSURE 09/10/22 08/11/23 History (Aldactone) acetaminophen 325 mg tablet 650 mg PO 4X/DAY PRN PAIN 01/27/23 08/11/23 History (Tylenol) cyclobenzaprine 10 mg tablet 10 mg PO BID PRN MUSCLE SPASMS 01/27/23 08/11/23 History budesonide 160 mcg-glycopyr 9 2 inh inhalation BID SHORTNESS OF 03/04/23 08/11/23 History mcg-formot 4.8 mcg/actuation HFA BREATH inhaler (Breztri Aerosphere) carboxymethylcellulose sodium 0.5 1 drp EACH EYE TID PRN EYE DRYNESS 03/04/23 08/11/23 History % eye drops cholecalciferol (vitamin D3) 50 100 mcg PO DAILY SUPPLEMENT 03/04/23 08/11/23 History mcg (2,000 unit) capsule (D3-1999) empagliflozin 25 mg tablet 25 mg PO DAILY DIABETES 03/04/23 08/11/23 History (Jardiance) insulin regular hum U-500 conc 500 See Rx Instructions subcut BID 05/27/23 08/11/23 History unit/mL(3 mL) subcut pen (Humulin DIABETES R U-500 (Conc) Insulin Kwikpen) levetiracetam 500 mg tablet 500 mg PO BID seizure 05/27/23 08/11/23 History phenazopyridine 100 mg tablet 100 mg PO TID PRN pain 6 doses #6 07/12/23 08/11/23 Rx (Pyridium) tabs furosemide 40 mg tablet 40 mg PO DAILY EDEMA 07/19/23 08/11/23 History sacubitril 24 mg-valsartan 26 mg 1 tab PO BID heart 08/12/23 08/11/23 History tablet (Entresto) Allergy/AdvReac Type Severity Reaction Status Date / Time ezetimibe Allergy Unknown Verified 09/05/23 17:21 Fish Containing Products Allergy Unknown Verified 09/05/23 17:21 glyburide Allergy Unknown Verified 09/05/23 17:21 isosorbide Allergy PT UNSURE Verified 09/05/23 17:21 OF REACTION lisinopril Allergy Unknown Verified 09/05/23 17:21 metformin Allergy Nausea Verified 09/05/23 17:21 metoprolol Allergy Unknown Verified 09/05/23 17:21 simvastatin Allergy Unknown Verified 09/05/23 17:21 tramadol Allergy Other Verified 09/05/23 17:21 iron AdvReac Mild Vomiting Verified 09/05/23 17:21 gabapentin AdvReac Other Verified 09/05/23 17:21 Family History Father No problems noted. Surgical History History of cholecystectomy History of knee replacement procedure of left knee History of permanent cardiac pacemaker placement (01/14/21) H/O coronary artery bypass surgery History of coronary artery stent placement Social History household members: spouse Smoking Status: Former smoker details: Unknown substance use type: does not use ROS ROS ED Review of Systems ROS Unobtainable: due to mental status EXAM Physical Exam Const Vital Signs: 09/11/23 17:33 09/11/23 17:33 09/11/23 17:33 Temperature 97.8 F Temperature Source Temporal Pulse Rate 71 71 Respiratory Rate 18 18 Blood Pressure 146/65 H 146/65 H Blood Pressure Mean 92 92 Pulse Ox 98 97 Oxygen Delivery Method Room Air Nasal Cannula Room Air Oxygen Flow Rate (L/min) 4 09/11/23 17:33 09/11/23 17:36 09/11/23 18:03 Temperature 97.8 F 97.9 F Temperature Source Oral Oral Pulse Rate 69 72 67 Respiratory Rate 18 18 18 Blood Pressure 137/63 H 137/63 H 133/67 H Blood Pressure Mean 87 87 89 Pulse Ox 95 89 97 Oxygen Delivery Method Nasal Cannula Room Air Room Air Oxygen Flow Rate (L/min) 2 09/11/23 18:28 09/11/23 18:53 09/11/23 18:54 Temperature Temperature Source Pulse Rate 89 66 Respiratory Rate 14 18 Blood Pressure 136/66 H 120/63 Blood Pressure Mean 89 82 Pulse Ox 98 88 96 Oxygen Delivery Method Room Air Nasal Cannula Nasal Cannula Oxygen Flow Rate (L/min) 2 3 09/11/23 19:00 09/11/23 20:00 09/11/23 20:32 Temperature 97.3 F L Temperature Source Pulse Rate 61 60 65 Respiratory Rate 15 18 18 Blood Pressure 144/63 H 159/69 H 137/64 H Blood Pressure Mean 90 99 88 Pulse Ox 100 100 96 Oxygen Delivery Method Nasal Cannula Nasal Cannula Oxygen Flow Rate (L/min) 5 4 Positive well nourished, well developed and obese General Appearance ED: well developed Nutritional Appearance: obese HEENT Reports normocephalic, head/scalp atraumatic and moist mucous membranes Eyes PERRL and EOMs intact bilaterally Neck no lymphadenopathy, supple and no JVD Resp normal respiratory effort and clear to auscultation bilaterally Cardio regular rate, regular rhythm and no murmurs GI normal to inspection, nondistended, normoactive bowel sounds and non-tender Palpation: soft Back/Spine no CVA tenderness and normal ROM Extremity normal to inspection General Extremety ED: Negative for edema General Extremity: Negative for edema Neuro Neuro Narrative: Patient does not hold up either arm either leg. He has speech that is unintelligible. His eyes are open withdraws all 4 extremities to pain. He does not follow commands Sensorium / Orientation: alert Skin no rashes or lesions noted and no wounds MDM MDM MDM Narrative Medical decision making narrative: Initial stroke team was downgraded. Differential diagnosis includes cardiac dysrhythmia electrolyte abnormality seizure UTI/sepsis/infectious hypoxia After CTs the patient seemed to improve. His speech improved to what appears to be at baseline. Has been asking for pain medicine and tells me he chronically has pain in his chest. He is requesting morphine which I do not think would be a good idea considering he just had altered mental status. Given Tylenol. CT of the brain CTA shows no acute findings. My independent interpretation of the chest x-ray is no acute process cardiomegaly noted. Hemoglobin 12.7 INR 1.1 troponin 14. Urinalysis negative creatinine 1.70 with a BUN of 31 he received IV fluids. Have not seen any seizure activity certainly would be in the differential because he has a history of seizure. He has returned to baseline is with him as comfortable taking him home. This is a recurrent episode for the patient and he has not had any prior formal diagnosis as to why this is occurring but his workups have been negative. Patient to follow-up with primary care and his doctors return if worse History & Record Review Discussion w/independent historian: Patient Additional record(s) reviewed:: Prior inpatient record, Prior ED visit and Prior labs Lab Data Attestation: I reviewed the patient's lab results. Labs: Laboratory Results - last 24 hr 09/11/23 09/11/23 17:45 18:35 WBC 6.4 RBC 4.09 L Hgb 12.7 L Hct 37.9 L MCV 92.7 MCH 31.1 MCHC 33.5 RDW Std Deviation 45.0 H RDW Coeff of Cinda 13.6 Plt Count 143 L MPV 11.0 Immature Gran % (Auto) 0.500 Neut % (Auto) 73.6 H Lymph % (Auto) 15.5 L [place] % (Auto) 8.2 Eos % (Auto) 1.9 Baso % (Auto) 0.3 Absolute Neuts (auto) 4.7 Absolute Lymphs (auto) 0.99 Nucleated RBC % 0 PT 14.4 INR 1.1 APTT 41.5 H Sodium 133 L Potassium 3.9 Chloride 96 L Carbon Dioxide 31.0 Anion Gap 6 BUN 31 H Creatinine 1.70 H Estim Creat Clear Calc 46.86 Est GFR (MDRD) Af Amer 51 L Est GFR (MDRD) Non-Af 42 L BUN/Creatinine Ratio 18.2 Glucose 284 H Calcium 8.7 Troponin I High Sens 14 Urine Color Yellow Urine Clarity Clear Urine pH 6.5 Ur Specific [place] 1.010 Urine Protein Negative Urine Glucose (UA) 1000 H Urine Ketones Negative Urine Occult Blood Negative Urine Nitrite Negative Urine Bilirubin Negative Urine Urobilinogen Normal Ur Leukocyte Esterase Negative Urine RBC 0 SEEN Urine WBC 0 SEEN Ur Squamous Epith Cells 0-5 SEEN Urine Bacteria 0 SEEN Urine Mucus 0 SEEN Radiography Diagnostic Testing: Clinical Impression(s) from Imaging Studies Brain CT 09/11/23 17:33 IMPRESSION: Age-related changes. N.B. : The above Results were Read Back by Ever Raines DO to Gerard Weeks DO, and understanding confirmed on 09/11/2023 17:52:24 (ET). Electronically Signed: Ever Raines DO at 18:00 EDT , ADDENDUM: 09/11/23 1807 IMPRESSION: Age-related changes. N.B. : The above Results were Read Back by Ever Raines DO to Gerard Weeks DO, and understanding confirmed on 09/11/2023 17:52:24 (ET). Electronically Signed: Ever Raines DO at 18:00 EDT , Head/Neck CTA 09/11/23 17:33 IMPRESSION: Calcifications at the cavernous segments bilaterally of the internal carotid arteries with up to 50% luminal stenosis. Mediastinal adenopathy. No significant interval changes. Electronically Signed: Ever Raines DO at 18:19 EDT , ADDENDUM: 09/11/23 1828 IMPRESSION: Calcifications at the cavernous segments bilaterally of the internal carotid arteries with up to 50% luminal stenosis. Mediastinal adenopathy. No significant interval changes. N.B. : The above Results were Read Back by Ever Raines DO to Gerard Weeks DO, and understanding confirmed on 09/11/2023 18:21:41 (ET). Electronically Signed: Ever RainesDO at 18:19 EDT , Chest X-Ray 09/11/23 18:05 IMPRESSION: Cardiomegaly. Electronically Signed: Ever Raines DO at 20:16 EDT , EKG Initial EKG: Attestation: I personally reviewed and interpreted this EKG as follows: Comments: Atrially sensed ventricularly paced rhythm at a rate of 70 bpm Discharge Plan Triage Chief Complaint: Stroke Alert ED Provider: Gerard Weeks Dx/Rx/DC Orders Clinical Impression: Acute alteration in mental status, Diabetes, Chest pain Instructions: ED ALOC Prescriptions: No Action clopidogrel [Plavix] 75 mg tablet 75 mg PO DAILY levetiracetam 500 mg tablet 500 mg PO BID atorvastatin 80 MG tablet 80 mg PO QHS aspirin 81 MG tablet 81 mg PO DAILY finasteride 5 MG tablet 5 mg PO DAILY escitalopram oxalate 10 MG tablet 10 mg PO DAILY Humulin R U-500 (Conc) Kwikpen 500 unit/mL (3 mL) insulin pen See Rx Instructions subcut BID Rx Instructions: 130 units with breakfast; 130 units with dinner nitroglycerin 0.4 MG tablet, sublingual 0.4 mg sublingual Q5M PRN (Reason: CHEST PAIN ) Qty: 30 0RF pantoprazole 40 MG tablet 40 mg PO BID carvedilol 25 MG tablet 25 mg PO BID ranolazine 500 mg Tablet Extended Release 12 Hr 500 mg PO Q12H tamsulosin 0.4 MG capsule 0.4 mg PO QHS magnesium oxide 420 mg Tablet 420 mg PO BID ketoconazole 2 % Shampoo 1 applic TOPICAL DAILY albuterol sulfate 2.5 mg /3 mL (0.083 %) Solution For Nebulization 2.5 mg INHALATION Q6H PRN (Reason: SHORTNESS OF BREATH/WHEEZING ) multivitamin with minerals Tablet 1 tab PO DAILY spironolactone [Aldactone] 25 mg tablet 25 mg PO DAILY acetaminophen [Tylenol] 325 MG tablet 650 mg PO 4X/DAY PRN (Reason: PAIN ) cyclobenzaprine 10 mg tablet 10 mg PO BID PRN (Reason: MUSCLE SPASMS) Jardiance 25 mg tablet 25 mg PO DAILY carboxymethylcellulose sodium 0.5 % drops 1 drp EACH EYE TID PRN (Reason: EYE DRYNESS ) cholecalciferol (vitamin D3) [D3-2000] 50 mcg (2,000 unit) capsule 100 mcg PO DAILY Breztri Aerosphere 160-9-4.8 mcg/actuation HFA aerosol inhaler 2 inh inhalation BID Patient Comments: PT STATES THEY HAVE THE INHALER BUT IT DOES NOT WORK WELL FOR THEM Rx Instructions: RINSE MOUTH AFTER USE furosemide 40 mg Tablet 40 mg PO DAILY phenazopyridine [Pyridium] 100 mg tablet 100 mg PO TID PRN (Reason: pain) Qty: 6 0RF Entresto 24-26 mg tablet 1 tab PO BID [facility] [Primary Care Provider] - As soon as possible (for hospital and ED follow up) Print Language: Citizen Of [place] Disposition Disposition: Home, Self Care Discharge Date/Time: 09/11/23 20:41
[2023-09-11 18:29] LABS: Anion Gap 6 (5-15); BUN 31 mg/dL (7-18); BUN/Creat Ratio 18.2 RATIO (10-20); Calcium,Total 8.7 mg/dL (8.5-10.1); Chloride 96 mmol/L (98-107); EST Glomerular Filtration Rate 42 mL/min (>60); Est Glom Filt Rate - Afr Amer 51 mL/min (>60); Estimated Creatinine Clearance 46.86 ml/min; Glucose 284 mg/dL (74-106); Potassium 3.9 mmol/L (3.5-5.1); Sodium Level 133 mmol/L (136-145); Troponin-I HS 14 pg/mL (3.0-78.0)
[2023-09-11] MEDS: 0.9% Normal Saline (1000mL) 1,000 ML 999 ML IV (18:38)
[2023-09-11 18:40] LABS: Bacteria 0 SEEN /hpf (None Seen); Mucous, Urine 0 SEEN /hpf (<or=2+); Red Blood Cells-Urine 0 SEEN /hpf (0-5); White Blood Cells 0 SEEN /hpf (0-5)
[2023-09-11 18:44] LABS: Color, Urine Yellow (Yellow); Glucose, Dipstick 1000 mg/dl (Normal); Ketone-Dipstick Negative (Negative); Leukocyte Esterase-Dipstick Negative /ul (Negative); Nitrite-Dipstick Negative (Negative); Occult Blood-Urine Negative /ul (Negative); Protein-Dipstick Negative (Negative); Urine Bilirubin Dipstick Negative (Negative); Urine Clarity Clear (Clear); Urine Urobilinogen Normal (Normal); Urine pH 6.5 (5.0 - 8.0)
[2023-09-11 18:49] LABS: Squamous Epithelial Cells - UA 0-5 SEEN /hpf (0-5)
[2023-09-11] MEDS: Acetaminophen 500 MG Tablet 1000 MG PO (19:44)
== END 2023-09-11 20:41 | disposition home or self-care (01) ==
PROVIDERS: Emergency Provider Emergency Medicine; Visit Provider Emergency Medicine
DX: R41.82 Altered mental status, unspecified (principal); I69.954 Hemiplegia and hemiparesis following unspecified cerebrovascular disease affecting left non-dominant side; J96.11 Chronic respiratory failure with hypoxia; I11.0 Hypertensive heart disease with heart failure; I50.9 Heart failure, unspecified; J44.9 Chronic obstructive pulmonary disease, unspecified; E11.9 Type 2 diabetes mellitus without complications; Z79.4 Long term (current) use of insulin; R07.9 Chest pain, unspecified; Z87.891 Personal history of nicotine dependence; E78.5 Hyperlipidemia, unspecified; I25.10 Atherosclerotic heart disease of native coronary artery without angina pectoris; E66.9 Obesity, unspecified; I69.922 Dysarthria following unspecified cerebrovascular disease; G47.33 Obstructive sleep apnea (adult) (pediatric); D64.9 Anemia, unspecified; Z95.0 Presence of cardiac pacemaker; I25.2 Old myocardial infarction; Z66 Do not resuscitate; Z86.73 Personal history of transient ischemic attack (TIA), and cerebral infarction without residual deficits; Z99.81 Dependence on supplemental oxygen; Z86.711 Personal history of pulmonary embolism; Z79.899 Other long term (current) drug therapy; Z79.82 Long term (current) use of aspirin; Z79.51 Long term (current) use of inhaled steroids; Z95.1 Presence of aortocoronary bypass graft; Z97.4 Presence of external hearing-aid
CPT/HCPCS: 70450; 70496; 70498; 71045; 80048; 81001; 84484; 85025; 85610; 85730; 93005; 96360; 99285; J7030; Q9967

== ENCOUNTER 2023-11-30 17:58 | Inpatient (IN) | payer OTHER, SELFPAY ==
[2023-11-30] VITALS (11 sets, daily range): BP systolic 127–165; BP diastolic 62–92; PULSE 64–92; RESP 14–22; TEMP 35.7–37; O2SAT 95–100; BMI 36.1; BMI 27.3
--- NOTE | 2023-11-30 18:42 | RAD_ITS ---
EXAM: XR LEFT SHOULDER COMPLETE, 2 OR MORE VIEWS CLINICAL INDICATION: pain TECHNIQUE: Two or more views of the left shoulder. COMPARISON: Chest radiograph on the same date. FINDINGS: BONES/JOINTS: Glenohumeral and acromioclavicular joint arthrosis. No acute fracture or dislocation. Plate-screw fixation of multiple chronic rib fractures. No sclerotic or destructive changes observed. SOFT TISSUES: No significant abnormality. No soft tissue swelling or gas. No radiopaque foreign body. TUBES, LINES AND DEVICES: Left-sided cardiac device. OTHER FINDINGS: Status post CABG. RAD/Shoulder min 2 Views IMPRESSION: Glenohumeral and acromioclavicular joint arthrosis. No acute fracture or dislocation. Electronically Signed: Zay Hensley DO at 20:16 EDT ,
--- NOTE | 2023-11-30 18:44 | EDS_ITS ---
HPI History of Present Illness Chief Complaint: Neuro S/Sx Detail of Chief Complaint: Slurred speech and trouble with balance Informant: patient and spouse/S.O. Narrative Narrative: Patient presents to the emergency department with complaint of slurred speech. Patient complains of feeling off balance today. He tells me that he thinks he fell or had a's passing out spell yesterday around 4:00 in the afternoon while he was helping his son. 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 He is not sure if he lost consciousness. He landed on his left shoulder and left chest and complains of pain in that area. He was able to get up then and ambulate. He had had pain throughout the night. This morning he woke up and his speech was slurred and he felt off balance. His 's birthday so they went out to the birthday dinner tonight and when it was time to get up and leave he felt weak and dizzy. Patient has history of prior strokes. He is on Plavix and aspirin. He has history of coronary artery disease with prior CABG and stents. [facility] Medical History ICD (implantable cardioverter-defibrillator) in place History of CAD (coronary artery disease) Lung nodule Obesity Chronic hypoxemic respiratory failure COPD (chronic obstructive pulmonary disease) Left-sided weakness Chest pain Syncope DNR (do not resuscitate) DNR (do not resuscitate) discussion Heart failure EKATERINA (obstructive sleep apnea) Anemia Chronic hyperglycemia History of TIAs Conversion reaction Sick sinus syndrome Pacemaker battery depletion Hemiparesis, left Former smoker On home oxygen therapy Pacemaker Congestive heart failure (CHF) Myocardial infarct Chest pain Pulmonary embolism Dysarthria BiPAP (biphasic positive airway pressure) dependence Wears hearing aid in both ears Diabetes Stroke/cerebrovascular accident COPD (chronic obstructive pulmonary disease) History of fractured rib CAD (coronary artery disease) Essential (primary) hypertension Atherosclerotic heart disease [place] coronary artery w/angina pectoris EKATERINA (obstructive sleep apnea) Abnormal EKG DM type 2 (diabetes mellitus, type 2) Chronic respiratory failure Obesity Hyperlipidemia Home Medications ?Medication ?Instructions ?Recorded ?Last Taken ?Type aspirin 81 mg tablet,delayed 81 mg PO DAILY [facility] 06/11/18 08/11/23 History release atorvastatin 80 mg tablet 80 mg PO QHS CHOLESTEROL 06/11/18 08/11/23 History escitalopram oxalate 10 mg tablet 10 mg PO DAILY DEPRESSION 06/11/18 08/11/23 History finasteride 5 mg tablet 5 mg PO DAILY PROSTATE 06/11/18 08/11/23 History nitroglycerin 0.4 mg sublingual 0.4 mg sublingual Q5M PRN CHEST 07/22/18 01/17/20 Rx tablet PAIN #30 TABLETS pantoprazole 40 mg tablet,delayed 40 mg PO BID GERD 05/18/20 08/11/23 History release carvedilol 25 mg tablet 25 mg PO BID BLOOD PRESSURE 06/22/20 08/11/23 History ranolazine 500 mg tablet,extended 500 mg PO Q12H CHEST PAIN 06/22/20 08/11/23 History release,12 hr tamsulosin 0.4 mg capsule 0.4 mg PO QHS PROSTATE 08/10/20 08/11/23 History clopidogrel 75 mg tablet (Plavix) 75 mg PO DAILY BLOOD THINNER 01/07/21 08/11/23 History albuterol sulfate 2.5 mg/3 mL 2.5 mg inhalation Q6H PRN 12/12/21 08/11/23 History (0.083 %) solution for nebulization SHORTNESS OF BREATH/WHEEZING ketoconazole 2 % shampoo 1 applic topical DAILY DRY SCALP 12/12/21 03/03/23 History magnesium oxide 420 mg tablet 420 mg PO BID SUPPLEMENT 12/12/21 08/11/23 History multivitamin with minerals 1 tab PO DAILY SUPPLEMENT 12/12/21 08/11/23 History spironolactone 25 mg tablet 25 mg PO DAILY BLOOD PRESSURE 09/10/22 08/11/23 History (Aldactone) acetaminophen 325 mg tablet 650 mg PO 4X/DAY PRN PAIN 01/27/23 08/11/23 History (Tylenol) cyclobenzaprine 10 mg tablet 10 mg PO BID PRN MUSCLE SPASMS 01/27/23 08/11/23 History budesonide 160 mcg-glycopyr 9 2 inh inhalation BID SHORTNESS OF 03/04/23 08/11/23 History mcg-formot 4.8 mcg/actuation HFA BREATH inhaler (Breztri Aerosphere) carboxymethylcellulose sodium 0.5 1 drp EACH EYE TID PRN EYE DRYNESS 03/04/23 08/11/23 History % eye drops cholecalciferol (vitamin D3) 50 100 mcg PO DAILY SUPPLEMENT 03/04/23 08/11/23 History mcg (2,000 unit) capsule (D3-2000) empagliflozin 25 mg tablet 25 mg PO DAILY DIABETES 03/04/23 08/11/23 History (Jardiance) insulin regular hum U-500 conc 500 See Rx Instructions subcut BID 05/27/23 08/11/23 History unit/mL(3 mL) subcut pen (Humulin DIABETES R U-500 (Conc) Insulin Kwikpen) levetiracetam 500 mg tablet 500 mg PO BID seizure 05/27/23 08/11/23 History phenazopyridine 100 mg tablet 100 mg PO TID PRN pain 6 doses #6 07/12/23 08/11/23 Rx (Pyridium) tabs furosemide 40 mg tablet 40 mg PO DAILY EDEMA 07/19/23 08/11/23 History sacubitril 24 mg-valsartan 26 mg 1 tab PO BID heart 08/12/23 08/11/23 History tablet (Entresto) Allergy/AdvReac Type Severity Reaction Status Date / Time ezetimibe Allergy Unknown Verified 11/30/23 18:07 Fish Containing Products Allergy Unknown Verified 11/30/23 18:07 glyburide Allergy Unknown Verified 11/30/23 18:07 isosorbide Allergy PT UNSURE Verified 11/30/23 18:07 OF REACTION lisinopril Allergy Unknown Verified 11/30/23 18:07 metformin Allergy Nausea Verified 11/30/23 18:07 metoprolol Allergy Unknown Verified 11/30/23 18:07 simvastatin Allergy Unknown Verified 11/30/23 18:07 tramadol Allergy Other Verified 11/30/23 18:07 iron AdvReac Mild Vomiting Verified 11/30/23 18:07 gabapentin AdvReac Other Verified 11/30/23 18:07 Family History Father No problems noted. Surgical History History of cholecystectomy History of knee replacement procedure of left knee History of permanent cardiac pacemaker placement (01/14/21) H/O coronary artery bypass surgery History of coronary artery stent placement Social History household members: spouse Smoking Status: Former smoker details: Unknown substance use type: does not use ROS ROS ED Review of Systems ROS Unobtainable: other Constitutional Constitutional ED: Reports lethargy; Denies chills, fever(s), sweats or weight loss Eyes Eyes: Denies blurry vision, change in vision or diplopia ENT ENT ED: Denies rhinorrhea or sore throat Cardiovascular Cardiovascular: Reports chest pain; Denies orthopnea or racing heartbeat Respiratory/Chest Respiratory/Chest: Reports cough; Denies dyspnea, dyspnea on exertion, orthopnea or sputum Gastrointestinal Gastrointestinal: Denies abdominal pain, diarrhea, nausea or vomiting Genitourinary Genitourinary ED: Denies dysuria, hematuria or urinary frequency Musculoskeletal Musculoskeletal: Denies arthralgias, back pain, myalgias or neck pain Integumentary Denies abscess, Abrasions or rash Neurologic Neurologic: Reports other Details: Dizziness, slurred speech, off balance ; Denies headache(s) or weakness Psychiatric Psychiatric: Denies anxiety, depression or suicidal thoughts Endocrine Endocrinology: Denies polydipsia, polyphagia or polyuria Hematologic/Lymphatic Hematologic/Lymphatic: Denies easy bleeding, easy bruising or lymphadenopathy Allergic/Immunologic Allergic/Immunologic ED: Denies mouth swelling, tongue swelling or urticaria EXAM Physical Exam Const Vital Signs: 11/30/23 17:59 11/30/23 18:17 11/30/23 18:43 Temperature 98.2 F Temperature Source Oral Pulse Rate 92 70 Respiratory Rate 22 H 14 Respiratory Effort Normal Respiratory Depth Normal Respiratory Pattern Normal Blood Pressure 127/92 H 145/75 H Blood Pressure Mean 103 98 Pulse Ox 99 97 Oxygen Delivery Method Nasal Cannula Nasal Cannula Nasal Cannula Oxygen Flow Rate (L/min) 4 4 11/30/23 19:05 11/30/23 19:13 11/30/23 19:30 Temperature Temperature Source Pulse Rate 64 69 Respiratory Rate 19 H 18 Respiratory Effort Respiratory Depth Respiratory Pattern Blood Pressure 130/67 H 144/91 H Blood Pressure Mean 88 108 Pulse Ox 97 99 99 Oxygen Delivery Method Nasal Cannula Nasal Cannula Nasal Cannula Oxygen Flow Rate (L/min) 4 4 11/30/23 20:00 11/30/23 20:30 Temperature 97.8 F Temperature Source Temporal Pulse Rate 72 80 Respiratory Rate 20 H 20 H Respiratory Effort Respiratory Depth Respiratory Pattern Blood Pressure 142/64 H 135/69 H Blood Pressure Mean 90 91 Pulse Ox 98 98 Oxygen Delivery Method Nasal Cannula Room Air Oxygen Flow Rate (L/min) 4 Positive well nourished and well developed General Appearance ED: well developed and NAD HEENT Reports TM's clear and moist mucous membranes normocephalic and atraumatic; Negative for trauma or tenderness Tympanic Membrane ED: Yes TM's clear Eyes PERRL and EOMs intact bilaterally General Eye ED: Negative for pale conjunctiva or scleral icterus Neck no lymphadenopathy, supple and no JVD General: Negative for tenderness Chest Wall palpation of chest normal Chest Narrative: Tenderness palpation of the left anterior chest wall. No crepitus or subcu eczema. No ecchymosis or bruising Chest: Negative for tenderness Resp normal respiratory effort and clear to auscultation bilaterally Effort and Inspection: Negative for respiratory distress or pain with movement Auscultation: Negative for rhonchi, wheezes or diminished lung sounds Cardio regular rate, regular rhythm, S1 normal heart sound, S2 normal heart sound and no murmurs Peripheral Pulses: pulses 2+ throughout GI normal to inspection, nondistended, normoactive bowel sounds, soft to palpation, non-tender, non-distended and no masses Back/Spine no CVA tenderness and no thoracic nor lumbar tenderness Extremity normal to inspection General Extremety ED: Negative for edema General Extremity: Negative for edema Neuro oriented x3, CN's II-XII intact bilaterally, no sensory deficits noted and No gait normal Neuro Narrative: NIH stroke scale is 6 for left leg and left arm weakness that he states are chronic. Patient also with some dysarthria. No facial droop. Sensorium / Orientation: awake, alert, oriented to person, oriented to place and oriented to time Motor Exam: strength 5/5 throughout and strength abnormal Psych mental status grossly normal Skin no rashes or lesions noted and no wounds MDM MDM MDM Narrative Medical decision making narrative: Patient presents to the emergency department with complaint of a fall or syncopal episode yesterday followed by pain in his left chest and left shoulder and feeling off balance today with slurred speech. He had history of coronary artery disease as well as history of stroke. In the differential would be stroke. He is not a thrombolytic candidate as symptoms started upon waking this morning and it is unclear exactly what happened yesterday afternoon. IV line established. EKG obtained arrival showed a ventricularly paced rhythm with rate of 68 bpm. CBC with differential showed a white count of 5.6 with hemoglobin 11.9 and platelet count of 163. Chemistries unremarkable. BUN 14 creatinine 1.05. Troponin normal at 19. Chest x-ray obtained showed cardiomegaly and some pulmonary congestion. X-rays of the left shoulder showed degenerative changes but no fractures. Patient had a CTA of the brain that showed some atherosclerosis at the aortic arch without significant arterial occlusions. This point etiology of symptoms unclear but need to rule out stroke or posterior stroke. Patient states he has had MRIs before with his pacemaker but he is not sure he can have 1 with pacer and defibrillator. Case will be discussed with hospitalist to evaluate patient for admission Lab Data Attestation: I reviewed the patient's lab results. Labs: Laboratory Results - last 24 hr 11/30/23 18:15 WBC 5.6 RBC 3.76 L Hgb 11.9 L Hct 34.6 L MCV 92.0 MCH 31.6 MCHC 34.4 RDW Std Deviation 47.5 H RDW Coeff of Cinda 14.4 Plt Count 163 MPV 10.3 Immature Gran % (Auto) 0.400 Neut % (Auto) 73.0 H Lymph % (Auto) 16.3 L [place] % (Auto) 7.9 Eos % (Auto) 2.0 Baso % (Auto) 0.4 Absolute Neuts (auto) 4.1 Absolute Lymphs (auto) 0.91 Nucleated RBC % 0 PT 14.2 INR 1.1 APTT 35.5 Sodium 137 Potassium 3.8 Chloride 100 Carbon Dioxide 29.0 Anion Gap 8 BUN 14 Creatinine 1.05 Estim Creat Clear Calc 79.27 Est GFR (MDRD) Af Amer 89 Est GFR (MDRD) Non-Af 74 BUN/Creatinine Ratio 13.3 Glucose 326 H Calcium 9.0 Troponin I High Sens 19 Radiography Diagnostic Testing: Clinical Impression(s) from Imaging Studies Shoulder X-Ray 11/30/23 18:42 IMPRESSION: Glenohumeral and acromioclavicular joint arthrosis. No acute fracture or dislocation. Electronically Signed: Zay Hensley DO at 20:16 EDT , Chest X-Ray 11/30/23 19:30 IMPRESSION: 1. Cardiomegaly and/or pericardial effusion. Status post CABG. 2. Apparent pulmonary vascular congestion. Electronically Signed: Zay Hensley DO at 20:16 EDT , Head/Neck CTA 11/30/23 19:50 IMPRESSION: Atherosclerotic change of the aorta without evidence for hemodynamically significant stenosis or major vessel occlusion Electronically Signed: Zeb Segura MD at 20:44 EDT , 2 view x-rays of left shoulder obtained interpreted by myself as degenerative changes without evidence of fracture or dislocation. Radiology in agreement. 1 view chest x-ray obtained interpreted by myself as enlarged heart with mild pulmonary congestion. Radiology in agreement EKG Initial EKG: Attestation: I personally reviewed and interpreted this EKG as follows: Comments: Ventricularly paced rhythm with rate of 68 bpm Discharge Plan Dx/Rx/DC Orders Clinical Impression: Dizziness, Slurred speech, History of coronary artery disease, History of stroke Disposition Disposition: Acute Care Hospital [facility]
[2023-11-30 18:51] LABS: Absolute Lymphocyte Count 0.91 X10^3/uL (0.83-4.51); Absolute Neutrophil Count 4.1 X10^3/uL (2.0-7.7); Basophil# 0.02 X10^3/uL; Basophil% 0.4 % (0-1); Eosinophil# 0.11 X10^3/uL; Hematocrit 34.6 % (40-54); Hemoglobin 11.9 g/dL (13.0-16.5); Lymphocyte # 0.91 X10^3/ul (0.83-4.51); Lymphocyte % 16.3 % (19-41); Mean Corp Hgb Conc 34.4 g/dL (32-36); Mean Corpuscular Hgb 31.6 pg (27.0-32.0); Mean Platelet Vol. 10.3 fl (6.2-12.0); Monocyte# 0.44 X10^3/uL; Monocyte% 7.9 % (0-10); NRBC Flagged by Analyzer 0 % (0-5); Neutrophil # 4.08 X10^3/uL (2.7-7.7); Platelet Count 163 K/mm3 (150-450); RBC Distribution Width CV 14.4 % (11.6-14.6); RBC Distribution Width SD 47.5 fl (35.1-43.9); Red Blood Count 3.76 M/mm3 (4.6-6.2); White Blood Count 5.6 K/mm3 (4.4-11.0)
[2023-11-30 18:59] LABS: International Normalized Ratio 1.1; Prothrombin Time (Protime)PT. 14.2 SECONDS (11.7-14.9)
[2023-11-30 19:00] LABS: Partial Thromboplast Time 35.5 Seconds (24.1-36.2)
[2023-11-30] MEDS: fentaNYL 100 MCG/2 ML Ampul 25 MCG IV (19:16)
[2023-11-30 19:18] LABS: Anion Gap 8 (5-15); BUN 14 mg/dL (7-18); BUN/Creat Ratio 13.3 RATIO (10-20); Chloride 100 mmol/L (98-107); Creatinine, Serum 1.05 mg/dL (0.70-1.30); EST Glomerular Filtration Rate 74 mL/min (>60); Est Glom Filt Rate - Afr Amer 89 mL/min (>60); Estimated Creatinine Clearance 79.27 ml/min; Glucose 326 mg/dL (74-106); Potassium 3.8 mmol/L (3.5-5.1); Sodium Level 137 mmol/L (136-145); Troponin-I HS 19 pg/mL (3.0-78.0)
--- NOTE | 2023-11-30 19:30 | RAD_ITS ---
EXAM: XR CHEST, 1 VIEW CLINICAL INDICATION: Neuro deficit, acute, stroke suspected TECHNIQUE: Frontal view of the chest. COMPARISON: 09/11/2023 FINDINGS: LUNGS AND PLEURAL SPACES: Apparent pulmonary vascular congestion. No pneumothorax. No effusion. HEART: Cardiomegaly and/or pericardial effusion. Status post CABG. MEDIASTINUM: Central airways and mediastinal contour are unremarkable. BONES/JOINTS: Plate-screw fixation of multiple left-sided rib fractures again identified. Median sternotomy. SOFT TISSUES: No significant abnormality. TUBES, LINES AND DEVICES: Left-sided cardiac device. RAD/Chest 1 View IMPRESSION: 1. Cardiomegaly and/or pericardial effusion. Status post CABG. 2. Apparent pulmonary vascular congestion. Electronically Signed: Zay Hensley DO at 20:16 EDT ,
--- NOTE | 2023-11-30 19:50 | CT_ITS ---
STUDY: CTA HEAD AND NECK WITH CONTRAST REASON FOR EXAM: Male, 73 years old. Neuro deficit, acute, stroke suspected RADIATION DOSAGE (If Supplied By Facility): CTDIvol = ( 28.83 ) mGy, DLP = ( 1665.66 ) mGycm TECHNIQUE: CT angiography was performed with a multi-detector CT scanner. Data acquisition was obtained from the skull base through the vertex following intravenous administration of IV 100mL [id number]-[id number]. MIP images were reconstructed from the axial data set. Post-processing of the angiographic images was performed, with multiplanar reformation and 3D reconstruction. Individualized dose optimization techniques were used for this CT. COMPARISON: No relevant priors. FINDINGS: Normal bilateral petrous carotid arteries. Calcific plaquing of the right cavernous carotid artery with a normal supraclinoid bifurcation. Calcific plaquing of the left cavernous carotid artery with a normal supraclinoid bifurcation. Normal right A1 segments of the anterior cerebral artery. Normal left A1 segments of the anterior cerebral artery. Anterior communicating artery not visualized consistent with normal variant). Normal bilateral A2 segments of the anterior cerebral arteries. Normal right M1 and M2 segments of the middle cerebral arteries, with a normal M1 bifurcation. Normal left M1 and M2 segments of the middle cerebral arteries, with a normal M1 bifurcation. Posterior communicating arteries are not visualized consistent with normal variant Normal bilateral vertebral arteries. Normal basilar artery with a normal basilar bifurcation. The visualized bilateral superior cerebellar (SCA) arteries are normal. Normal bilateral P1, P2 and visualized P3 segments of the posterior cerebral arteries. There is no demonstrated aneurysm of the [place]. AORTIC ARCH: Calcific plaquing of the visualized aortic arch. Normal origins of the brachiocephalic, left common carotid, and left subclavian arteries. RIGHT CAROTID ARTERIES: Mild multifocal calcific plaquing of the right common carotid artery (CCA). Mild calcific plaquing of the right common carotid bulb. Normal origin of the right internal carotid (ICA) artery without a hemodynamically significant stenosis. Normal visualized cervical portion of the right internal carotid artery. Normal origin of the right external carotid artery (ECA). LEFT CAROTID ARTERIES: Moderate calcific plaquing of the distal left common carotid artery (CCA). Moderate calcific plaquing of the left common carotid bulb. Mild calcific plaquing of the origin of the left internal carotid (ICA) artery without a hemodynamically significant stenosis. Normal visualized cervical portion of the left internal carotid artery. Normal origin of the left external carotid artery (ECA). VERTEBRAL ARTERIES: Normal bilateral vertebral arteries. CT/CTA Head AND Neck W/ Contrast IMPRESSION: Atherosclerotic change of the aorta without evidence for hemodynamically significant stenosis or major vessel occlusion Electronically Signed: Zeb Segura MD at 20:44 EDT ,
--- NOTE | 2023-11-30 21:09 | HP.PCM_ITS ---
[facility] - General General Date of Admission: 11/30/23 Date of Service: 11/30/23 Chief Complaint: slurred speech HPI Narrative GIOVANNY LEONARDO, is a 73 M who presents who presents to the emergency room by squad due to an episode of slurred speech. He states he went to dinner with his this evening for her birthday and when he stood up he felt weak and dizzy. Patient has a significant past medical history of stroke with left-sided weakness at baseline. Patient also has a history of coronary artery disease with history of CABG surgery and stents and has a pacemaker defibrillator in place at this time. The patient also complains of feeling off balance and experienced a fall yesterday at approximately 4:00 when he leaned forward while working with his son on a project. He tells me he does remember falling forward on his left shoulder and chest where he complains of pain at this time. He was able to get up from that fall and ambulate without difficulty but did complain of increased pain throughout the night. He has had previous MRI however his defibrillator is new and what it is unclear if he is able to get MRI with his new defibrillator. Per the patient's spouse is speech is back to normal baseline and his strength appears to be recovered to his baseline, he does have residual left-sided weakness that is chronic. [facility] Medical History ICD (implantable cardioverter-defibrillator) in place History of CAD (coronary artery disease) Lung nodule Obesity Chronic hypoxemic respiratory failure COPD (chronic obstructive pulmonary disease) Left-sided weakness Chest pain Syncope DNR (do not resuscitate) DNR (do not resuscitate) discussion Heart failure EKATERINA (obstructive sleep apnea) Anemia Chronic hyperglycemia History of TIAs Conversion reaction Sick sinus syndrome Pacemaker battery depletion Hemiparesis, left Former smoker On home oxygen therapy Pacemaker Congestive heart failure (CHF) Myocardial infarct Chest pain Pulmonary embolism Dysarthria BiPAP (biphasic positive airway pressure) dependence Wears hearing aid in both ears Diabetes Stroke/cerebrovascular accident COPD (chronic obstructive pulmonary disease) History of fractured rib CAD (coronary artery disease) Essential (primary) hypertension Atherosclerotic heart disease [place] coronary artery w/angina pectoris EKATERINA (obstructive sleep apnea) Abnormal EKG DM type 2 (diabetes mellitus, type 2) Chronic respiratory failure Obesity Hyperlipidemia Home Medications ?Medication ?Instructions ?Recorded ?Last Taken ?Type aspirin 81 mg tablet,delayed 81 mg PO DAILY HEART HEALTH 06/11/18 08/11/23 History release atorvastatin 80 mg tablet 80 mg PO QHS CHOLESTEROL 06/11/18 08/11/23 History escitalopram oxalate 10 mg tablet 10 mg PO DAILY DEPRESSION 06/11/18 08/11/23 History finasteride 5 mg tablet 5 mg PO DAILY PROSTATE 06/11/18 08/11/23 History nitroglycerin 0.4 mg sublingual 0.4 mg sublingual Q5M PRN CHEST 07/22/18 01/17/20 Rx tablet PAIN #30 TABLETS pantoprazole 40 mg tablet,delayed 40 mg PO BID GERD 05/18/20 08/11/23 History release carvedilol 25 mg tablet 25 mg PO BID BLOOD PRESSURE 06/22/20 08/11/23 History ranolazine 500 mg tablet,extended 500 mg PO Q12H CHEST PAIN 06/22/20 08/11/23 History release,12 hr tamsulosin 0.4 mg capsule 0.4 mg PO QHS PROSTATE 08/10/20 08/11/23 History clopidogrel 75 mg tablet (Plavix) 75 mg PO DAILY BLOOD THINNER 01/07/21 08/11/23 History albuterol sulfate 2.5 mg/3 mL 2.5 mg inhalation Q6H PRN 12/12/21 08/11/23 History (0.083 %) solution for nebulization SHORTNESS OF BREATH/WHEEZING ketoconazole 2 % shampoo 1 applic topical DAILY DRY SCALP 12/12/21 03/03/23 History magnesium oxide 420 mg tablet 420 mg PO BID SUPPLEMENT 12/12/21 08/11/23 History multivitamin with minerals 1 tab PO DAILY SUPPLEMENT 12/12/21 08/11/23 History spironolactone 25 mg tablet 25 mg PO DAILY BLOOD PRESSURE 09/10/22 08/11/23 History (Aldactone) acetaminophen 325 mg tablet 650 mg PO 4X/DAY PRN PAIN 01/27/23 08/11/23 History (Tylenol) cyclobenzaprine 10 mg tablet 10 mg PO BID PRN MUSCLE SPASMS 01/27/23 08/11/23 History budesonide 160 mcg-glycopyr 9 2 inh inhalation BID SHORTNESS OF 03/04/23 08/11/23 History mcg-formot 4.8 mcg/actuation HFA BREATH inhaler (Breztri Aerosphere) cholecalciferol (vitamin D3) 50 100 mcg PO DAILY SUPPLEMENT 03/04/23 08/11/23 History mcg (2,000 unit) capsule (D3-2000) empagliflozin 25 mg tablet 25 mg PO DAILY DIABETES 03/04/23 08/11/23 History (Jardiance) insulin regular hum U-500 conc 500 See Rx Instructions subcut BID 05/27/23 08/11/23 History unit/mL(3 mL) subcut pen (Humulin DIABETES R U-500 (Conc) Insulin Kwikpen) levetiracetam 500 mg tablet 500 mg PO BID seizure 05/27/23 08/11/23 History furosemide 40 mg tablet 40 mg PO DAILY EDEMA 07/19/23 08/11/23 History sacubitril 24 mg-valsartan 26 mg 1 tab PO BID heart 08/12/23 08/11/23 History tablet (Entresto) diclofenac sodium 0.1 % eye drops 1 drp LEFT EYE Q4H 11/30/23 Unknown History loratadine 10 mg tablet 10 mg PO DAILY 11/30/23 Unknown History (Allerclear) prednisolone acetate 1 % eye 1 drp LEFT EYE Q4H 11/30/23 Unknown History drops,suspension (Pred Forte) Allergy/AdvReac Type Severity Reaction Status Date / Time ezetimibe Allergy Unknown Verified 11/30/23 18:07 Fish Containing Products Allergy Unknown Verified 11/30/23 18:07 glyburide Allergy Unknown Verified 11/30/23 18:07 isosorbide Allergy PT UNSURE Verified 11/30/23 18:07 OF REACTION lisinopril Allergy Unknown Verified 11/30/23 18:07 metformin Allergy Nausea Verified 11/30/23 18:07 metoprolol Allergy Unknown Verified 11/30/23 18:07 simvastatin Allergy Unknown Verified 11/30/23 18:07 tramadol Allergy Other Verified 11/30/23 18:07 iron AdvReac Mild Vomiting Verified 11/30/23 18:07 gabapentin AdvReac Other Verified 11/30/23 18:07 Family History Father No problems noted. Surgical History History of cholecystectomy History of knee replacement procedure of left knee History of permanent cardiac pacemaker placement (01/14/21) H/O coronary artery bypass surgery History of coronary artery stent placement Social History household members: spouse Smoking Status: Former smoker details: Unknown substance use type: does not use ROS Constitutional Constitutional: Reports weakness; Denies chills or fever(s) Eyes Eyes: Denies change in vision ENT HEENT: Denies abnormal hearing, dysphagia or sore throat Cardiovascular Cardiovascular: Reports chest pain Respiratory/Chest Respiratory/Chest: Denies cough or shortness of breath at rest Gastrointestinal Gastrointestinal: Denies abdominal pain Genitourinary Genitourinary: Denies dysuria Musculoskeletal Musculoskeletal: Reports extremity pain; Denies back pain Integumentary Integumentary: Reports dry skin Neurologic Neurologic: Reports abnormal gait, abnormal speech and dizziness Psychiatric Psychiatric: Denies anxiety Endocrine Endocrinology: Reports change in body appearance Vital Signs Vital Signs Vital Signs: 11/30/23 17:59 11/30/23 18:17 11/30/23 18:43 Temperature 98.2 F Temperature Source Oral Pulse Rate 92 70 Respiratory Rate 22 H 14 Respiratory Effort Normal Respiratory Depth Normal Respiratory Pattern Normal Blood Pressure 127/92 H 145/75 H Blood Pressure Mean 103 98 Pulse Ox 99 97 Oxygen Delivery Method Nasal Cannula Nasal Cannula Nasal Cannula Oxygen Flow Rate (L/min) 4 4 11/30/23 19:05 11/30/23 19:13 11/30/23 19:30 Temperature Temperature Source Pulse Rate 64 69 Respiratory Rate 19 H 18 Respiratory Effort Respiratory Depth Respiratory Pattern Blood Pressure 130/67 H 144/91 H Blood Pressure Mean 88 108 Pulse Ox 97 99 99 Oxygen Delivery Method Nasal Cannula Nasal Cannula Nasal Cannula Oxygen Flow Rate (L/min) 4 4 11/30/23 20:00 11/30/23 20:30 Temperature 97.8 F Temperature Source Temporal Pulse Rate 72 80 Respiratory Rate 20 H 20 H Respiratory Effort Respiratory Depth Respiratory Pattern Blood Pressure 142/64 H 135/69 H Blood Pressure Mean 90 91 Pulse Ox 98 98 Oxygen Delivery Method Nasal Cannula Room Air Oxygen Flow Rate (L/min) 4 Weight Weight: 251 lb 8.759 oz Body Mass Index (BMI) 36.1 Physical Exam Const alert and oriented x3 General Appearance: cooperative HEENT normocephalic and head/scalp atraumatic Eyes PERRL and EOMs intact bilaterally Neck no lymphadenopathy Lymph Lymphatic: no lymphadenopathy noted Resp normal respiratory effort, normal air movement and clear to auscultation bilaterally Cardio regular rate, regular rhythm, S1 normal heart sound, S2 normal heart sound and no murmurs GI normal to inspection, nondistended, normoactive bowel sounds Extremity normal capillary refill Skin General Skin Exam: no breakdown Neuro Neuro Narrative: Left side upper extremity 4/5 strength, left lower extremity 4/5 strength, right upper extremity 5/5 strength, left lower extremity 5/5 strength Speech: speech normal Psych thought process normal, cooperative and affect normal Results Lab / Micro Data 11/30/23 18:15 11/30/23 18:15 Labs: Laboratory Results - last 24 hr 11/30/23 18:15: WBC 5.6, RBC 3.76 L, Hgb 11.9 L, Hct 34.6 L, MCV 92.0, MCH 31.6, MCHC 34.4, RDW Std Deviation 47.5 H, RDW Coeff of Cinda 14.4, Plt Count 163, MPV 10.3, Immature Gran % (Auto) 0.400, Neut % (Auto) 73.0 H, Lymph % (Auto) 16.3 L, [place] % (Auto) 7.9, Eos % (Auto) 2.0, Baso % (Auto) 0.4, Absolute Neuts (auto) 4.1, Absolute Lymphs (auto) 0.91, Nucleated RBC % 0, PT 14.2, INR 1.1, APTT 35.5, Sodium 137, Potassium 3.8, Chloride 100, Carbon Dioxide 29.0, Anion Gap 8, BUN 14, Creatinine 1.05, Estim Creat Clear Calc 79.27, Est GFR (MDRD) Af Amer 89, Est GFR (MDRD) Non-Af 74, BUN/Creatinine Ratio 13.3, Glucose 326 H, Calcium 9.0, Troponin I High Sens 19 Imaging Radiology Impression Shoulder X-Ray 11/30/23 18:42 IMPRESSION: Glenohumeral and acromioclavicular joint arthrosis. No acute fracture or dislocation. Electronically Signed: Zay Hensley DO at 20:16 EDT , Chest X-Ray 11/30/23 19:30 IMPRESSION: 1. Cardiomegaly and/or pericardial effusion. Status post CABG. 2. Apparent pulmonary vascular congestion. Electronically Signed: Zay VNilo Hensley DO at 20:16 EDT , Head/Neck CTA 11/30/23 19:50 IMPRESSION: Atherosclerotic change of the aorta without evidence for hemodynamically significant stenosis or major vessel occlusion Electronically Signed: Zeb Segura MD at 20:44 EDT , Assessment & Plan Assessment/Plan (1) History of stroke: (2) History of coronary artery disease: (3) Slurred speech: (4) Dizziness: PLAN: Plan 1 dizziness and slurred speech?patient will be admitted for observation to progressive care unit, CT angiogram shows chronic disease but no acute findings. Neurologically patient appears to be at his baseline currently after recovering from an episode of slurred speech and dizziness earlier today. Will monitor neurologic checks every 4 hours overnight and will get MRI of the brain in a.m. when cleared by cardiology team that defibrillator is safe for MRI. 2. History of coronary artery disease?stable continue routine home medications 3. History of stroke patient is on aspirin and Plavix at present time. 4. DVT prophylaxis?will add low molecular weight heparin Charges/Coding Visit Charges OBSV E&M: 83297 Observ/hosp same date L2
[2023-11-30] MEDS: Ranolazine 500 MG Tablet PO (22:53)
[2023-11-30] MEDS: Magnesium Chloride 64 MG Delay Rel.Tablet 128 MG PO (22:53)
[2023-11-30] MEDS: Pantoprazole Sodium 40 MG Tablet PO (22:53)
[2023-11-30] MEDS: levETIRAcetam 500 MG Tablet PO (22:54)
[2023-11-30] MEDS: Atorvastatin Calcium 80 MG Tablet PO (22:54)
[2023-11-30] MEDS: Carvedilol 25 MG Tablet PO (22:54)
[2023-11-30] MEDS: SACUBITRIL/VALSARTAN 24/26 MG TABLET 1 EACH PO (22:54)
[2023-11-30] MEDS: Tamsulosin HCl 0.4 MG Capsule PO (22:54)
[2023-11-30] MEDS: cycloBENZAPRine HCl 10 MG Tablet PO (23:00)
[2023-11-30 23:14] LABS: Bedside Glucose 281 mg/dL (74-106)
[2023-12-01] VITALS (16 sets, daily range): BP systolic 100–134; BP diastolic 55–68; PULSE 60–90; RESP 12–24; TEMP 35.8–36.8; O2SAT 94–100; BMI 27.3
[2023-12-01] MEDS: traMADol 50 MG Tablet PO ×2 (02:09→17:48)
[2023-12-01 06:41] LABS: Cholesterol 106 mg/dL (200); High Density Lipoprotein 32 mg/dL; Triglycerides 173 mg/dL; Very Low Density Lipoprotein 35 mg/dL (5-40)
[2023-12-01] MEDS: Ipratropium/Albuterol Sulfate 3 ML AMPUL.NEB INHALATION ×3 (07:06→19:10)
[2023-12-01] MEDS: Budesonide Respules 0.5 MG/2 ML AMPUL.NEB. INHALATION ×2 (07:06→19:10)
[2023-12-01] MEDS: Cholecalciferol (VIT D3) 25 MCG TABLET (1,000 UNITS) 100 MCG PO (09:20)
[2023-12-01] MEDS: SACUBITRIL/VALSARTAN 24/26 MG TABLET 1 EACH PO (09:21)
[2023-12-01] MEDS: Ranolazine 500 MG Tablet PO (09:21)
[2023-12-01] MEDS: Carvedilol 25 MG Tablet PO ×2 (09:21→17:42)
[2023-12-01] MEDS: Finasteride 5 MG Tablet PO (09:21)
[2023-12-01] MEDS: Spironolactone 25 MG Tablet PO (09:21)
[2023-12-01] MEDS: Pantoprazole Sodium 40 MG Tablet PO (09:21)
[2023-12-01] MEDS: Aspirin E.C. 81 MG Tablet PO (09:21)
[2023-12-01] MEDS: levETIRAcetam 500 MG Tablet PO (09:21)
[2023-12-01] MEDS: Magnesium Chloride 64 MG Delay Rel.Tablet 128 MG PO (09:21)
[2023-12-01] MEDS: Multivitamins,Ther W-Minerals Tablet 1 TABLET PO (09:21)
[2023-12-01] MEDS: Escitalopram Oxalate 10 MG Tablet PO (09:21)
[2023-12-01] MEDS: Furosemide 40 MG Tablet PO (09:21)
[2023-12-01] MEDS: Loratadine 10 MG Tablet PO (09:21)
[2023-12-01] MEDS: Clopidogrel Bisulfate 75 MG Tablet PO (09:21)
[2023-12-01] MEDS: Glucerna Shake 120 ML LIQUID PO (09:35)
[2023-12-01] MEDS: Insulin U-500 UNITS/ML PEN 130 UNITS SC ×2 (09:37→17:42)
--- NOTE | 2023-12-01 10:04 | PCM.PN.HOSP ---
Reason for Visit Reason for Visit: Diagnoses Dizziness and giddiness (11/30/23) Slurred speech (11/30/23) Personal history of transient ischemic attack (TIA), and cerebral infarction without residual deficits (11/30/23) Personal history of other diseases of the circulatory system (11/30/23) Subjective Subjective Patient is a 73-year-old gentleman with multiple comorbidities including previous CVA admitted with disequilibrium. Admitted to monitored bed where patient is currently undergoing evaluation Objective Data Objective Data Vital Signs: Vital Signs Temp Pulse Resp BP Pulse Ox O2 Del Method O2 Flow Rate 97.6 F L 61 18 108/63 99 Nasal Cannula 2 12/01/23 09:15 12/01/23 09:15 12/01/23 09:15 12/01/23 09:15 12/01/23 09:15 12/01/23 09:15 12/01/23 09:15 FiO2 24 12/01/23 07:06 Oxygen Flow Rate (L/min) 2 Oxygen Delivery Method Nasal Cannula Weight: 86.3 kg Body Mass Index (BMI) 27.3 Intake & Output: Intake and Output for Last 24 Hours 11/29/23 11/30/23 12/01/23 23:59 23:59 23:59 Output Total 125 / 125 Balance -125 / -125 Lab / Micro Data 11/30/23 18:15 11/30/23 18:15 Labs: Laboratory Results - last 24 hr 11/30/23 18:15: WBC 5.6, RBC 3.76 L, Hgb 11.9 L, Hct 34.6 L, MCV 92.0, MCH 31.6, MCHC 34.4, RDW Std Deviation 47.5 H, RDW Coeff of Cinda 14.4, Plt Count 163, MPV 10.3, Immature Gran % (Auto) 0.400, Neut % (Auto) 73.0 H, Lymph % (Auto) 16.3 L, White % (Auto) 7.9, Eos % (Auto) 2.0, Baso % (Auto) 0.4, Absolute Neuts (auto) 4.1, Absolute Lymphs (auto) 0.91, Nucleated RBC % 0, PT 14.2, INR 1.1, APTT 35.5, Sodium 137, Potassium 3.8, Chloride 100, Carbon Dioxide 29.0, Anion Gap 8, BUN 14, Creatinine 1.05, Estim Creat Clear Calc 79.27, Est GFR (MDRD) Af Amer 89, Est GFR (MDRD) Non-Af 74, BUN/Creatinine Ratio 13.3, Glucose 326 H, Calcium 9.0, Troponin I High Sens 19 11/30/23 22:53: POC Glucose 281 H 12/01/23 05:27: Triglycerides 173, Cholesterol 106, LDL Cholesterol 39, VLDL Cholesterol 35, HDL Cholesterol 32 L Radiography Diagnostic Testing: Radiology Impression Shoulder X-Ray 11/30/23 18:42 IMPRESSION: Glenohumeral and acromioclavicular joint arthrosis. No acute fracture or dislocation. Electronically Signed: Zay VNilo Hensley DO at 20:16 EDT , Chest X-Ray 11/30/23 19:30 IMPRESSION: 1. Cardiomegaly and/or pericardial effusion. Status post CABG. 2. Apparent pulmonary vascular congestion. Electronically Signed: Zay Hensley DO at 20:16 EDT , Head/Neck CTA 11/30/23 19:50 IMPRESSION: Atherosclerotic change of the aorta without evidence for hemodynamically significant stenosis or major vessel occlusion Electronically Signed: Zeb Segura MD at 20:44 EDT , Physical Exam Narrative GENERAL: cooperative HEENT: Atraumatic; normocephalic EYES; Anicteric, Normal Conjunctiva NECK; supple, normal thyroid, RESPIRATORY: Diminished to auscultation CARDIOVASCULAR: Regular S1 S2, GI: soft, normoactive bowel sounds, : No Renal angle tenderness; EXTREMITIES: No edema, no clubbing, MUSCULOSKELETAL: no muscle wasting NEURO: Awake; no lateralizing signs. SKIN: No Rash PSYCH; Flat affect Assessment & Plan Assessment/Plan (1) History of stroke: (2) History of coronary artery disease: (3) Slurred speech: (4) Dizziness: PLAN: Plan Patient is a 73-year-old gentleman with multiple comorbidities including previous CVA admitted with disequilibrium. Admitted to monitored bed where patient is currently undergoing evaluation 1. Disequilibrium ? Patient admitted to monitored bed placed on every 4 neurochecks as part of his management ordered MRI (pending clearance by radiology given the presence of an AICD) and consultation placed to telemetry neuro 2. Dyslipidemia -Patient is on statin therapy, continued at home dose 3. Chronic hypoxic respiratory failure ? Secondary to combination of COPD, obstructive sleep apnea patient is on oxygen 4 L at baseline 4. Obstructive sleep apnea ? BiPAP at night 5. 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 BPH with lower urinary obstructive symptoms - Patient treated with tamsulosin 7. Sick sinus syndrome ? Status post pacemaker placement 8. Diabetes mellitus type II -patient's oral hypoglycemics held. Placed on long acting insulin, Accu-Cheks a.c. and at bedtime and covered with sliding scale insulin 9. GERD ? On PPI 10. Class I obesity with BMI of 34.3 ? Complicating care weight loss advised 11. Depression ? Patient is on SSRI continue 12. DVT prophylaxis -Subcu Lovenox Time spent in the patient's overall evaluation,decision-making process, review of diagnostic data, adjustment of management, discussion with other providers, nursing nursing and ancillary staff involved in patient's care documentation, 50 minutes Charges/Coding Visit Charges Inpatient E&M: 35068 [facility] L3
[2023-12-01 10:11] LABS: Bedside Glucose 305 mg/dL (74-106)
[2023-12-01 12:34] LABS: Bedside Glucose 283 mg/dL (74-106)
--- NOTE | 2023-12-01 15:46 | CASEMGMT ---
Met with patient to complete FERGUSON form. FERGUSON form explained to patient who voiced understanding and signed form. Original form placed in pt?s chart and copy provided to patient. Rylie Godinez, Discharge Planning Asst
[2023-12-01 16:13] LABS: Bedside Glucose 197 mg/dL (74-106)
--- NOTE | 2023-12-01 22:45 | CPS ---
Pt's blood sugar level very low and pt having snoring respirations, Placed on BiPAP for the time being. Nursing giving D10.
--- NOTE | 2023-12-01 22:55 | NURSING ---
walked into the pts room, sweaty, drenched, unresponsive, blood sugar 27, d10 hung ivx2, repeat blood sugar 273, opens eyes but not talking
[2023-12-01] MEDS: Dextrose 10%-Water 250 ML 999 ML IV ×2 (23:03→23:09)
[2023-12-01 23:32] LABS: Allen Test Positive; Base Excess 4 mmol/L (-2 to +2); Bicarbonate 30.9 mmol/L (22-26); Blood Gas Specimen Type ART; Mode Not entered; O2 Delivery Device Cannula; PO2 134 mmHG (75-100); SITE L Radial; SO2 99 % (95-99); Total Carbon Dioxide 33 mmol/L; pCO2 64.5 mmHg (35-45); pH 7.29 (7.35-7.45)
--- NOTE | 2023-12-01 23:42 | PCM.HOSP.N ---
Hospitalist Note Patient with episode of hypoglycemia, required dextrose amp, improved to 271, now repeat 133. Still mildly lethargic with ABG requested with CO2 65, no markedly elevated but placed on BIPAP given EKATERINA on BIPAP history to be cautious with improvement. Will hold his oral diabetic regimen. Discussing with pharmacy his prior medication diabetic regimen while inpatient given patient usual hyperglycemia outpatient at home >200 routinely but admits to poor nondiabetic diet. From review it appears patient 08/06/23 was on U500 130 u BID and ISS in addition and 03/2023 was on also U-500 130 u BID with ISS but prior to this 02/2023 it was U-500 100 u BID but just prior to this is was U-500 115 u BID. Most recent HgbA1c noted 08/11/20 7.9%. Will request repeat HgBA1c and will decrease his short-acting from the high dose ISS in addition will decrease temporarily at least his long-acting U-500 to 100 u BID until A1c returns and further BS trending with consideration 1/2 dose while NPO or minimal oral intake. Nutrition consulted for education of patient.
[2023-12-02] VITALS (9 sets, daily range): BP systolic 104–129; BP diastolic 58–66; PULSE 58–69; RESP 12–24; TEMP 36.6; O2SAT 96–100; BMI 27.3
[2023-12-02] MEDS: Dextrose 10%-Water 250 ML 999 ML IV (00:42)
[2023-12-02] MEDS: Dextrose 5%/0.9% NaCl 1,000 ML 60 ML IV (00:54)
[2023-12-02 01:28] LABS: Bedside Glucose 50 mg/dL (74-106)
[2023-12-02 01:28] LABS: Bedside Glucose 27 mg/dL (74-106)
[2023-12-02 01:28] LABS: Bedside Glucose 273 mg/dL (74-106)
[2023-12-02 01:28] LABS: Bedside Glucose 133 mg/dL (74-106)
--- NOTE | 2023-12-02 02:00 | CPS ---
Pt settings reduced for pt comfort.
[2023-12-02 03:34] LABS: Bedside Glucose 115 mg/dL (74-106)
[2023-12-02 03:35] LABS: Bedside Glucose 83 mg/dL (74-106)
[2023-12-02 03:49] LABS: Bedside Glucose 79 mg/dL (74-106)
[2023-12-02 05:21] LABS: Bedside Glucose 106 mg/dL (74-106)
--- NOTE | 2023-12-02 06:00 | CT_ITS ---
EXAM: CT HEAD WITHOUT INTRAVENOUS CONTRAST CLINICAL INDICATION: Disequilibrium. TECHNIQUE: Multiple axial images were obtained of the head without intravenous contrast. This CT exam was performed using one or more of the following dose reduction techniques: automated exposure control, adjustment of the mA and/or kV according to patient size, and/or use of iterative reconstruction technique. RADIATION DOSE: CTDIvol = 44.99 mGy, DLP = 863.60 mGy-cm COMPARISON: CT head without contrast 11/30/2023. FINDINGS: BRAIN AND EXTRA-AXIAL SPACES: Unremarkable. No intra- or extra-axial hemorrhage. No evidence of acute infarct. No intracranial mass or mass effect. There is preservation of the nagy/white matter interface. Posterior fossa structures are unremarkable. Ventricles are appropriate for age. No hydrocephalus. Basal cisterns are patent. BONES/JOINTS: Unremarkable. No discrete lytic or blastic abnormalities. SINUSES: Unremarkable as visualized. Clear. MASTOID AIR CELLS: Unremarkable. Clear. ORBITS: Visualized globes, extraocular muscles, optic nerves and retrobulbar fat appear unremarkable. CT/Brain/Head without Contrast IMPRESSION: Negative head/brain CT without intravenous contrast and unchanged when compared to 11/30/2023. Electronically Signed: Adolfo Castro MD at 8:38 EDT ,
[2023-12-02 06:51] LABS: Absolute Lymphocyte Count 0.81 X10^3/uL (0.83-4.51); Absolute Neutrophil Count 5.3 X10^3/uL (2.0-7.7); Basophil# 0.01 X10^3/uL; Basophil% 0.2 % (0-1); Eosinophil# 0.07 X10^3/uL; Eosinophils% 1.1 % (0-5); Hematocrit 36.4 % (40-54); Hemoglobin 12.2 g/dL (13.0-16.5); Lymphocyte # 0.81 X10^3/ul (0.83-4.51); Lymphocyte % 12.2 % (19-41); Mean Corp Hgb Conc 33.5 g/dL (32-36); Mean Corpuscular Hgb 31.3 pg (27.0-32.0); Mean Corpuscular Volume 93.3 fL (80-94); Mean Platelet Vol. 10.1 fl (6.2-12.0); Monocyte# 0.43 X10^3/uL; Monocyte% 6.5 % (0-10); NRBC Flagged by Analyzer 0 % (0-5); Neutrophil # 5.32 X10^3/uL (2.7-7.7); Neutrophil % 79.7 % (47-70); Platelet Count 165 K/mm3 (150-450); RBC Distribution Width CV 14.5 % (11.6-14.6); RBC Distribution Width SD 48.3 fl (35.1-43.9); White Blood Count 6.7 K/mm3 (4.4-11.0)
[2023-12-02 07:18] LABS: Bedside Glucose 100 mg/dL (74-106)
[2023-12-02] MEDS: Budesonide Respules 0.5 MG/2 ML AMPUL.NEB. INHALATION (07:24)
[2023-12-02] MEDS: Ipratropium/Albuterol Sulfate 3 ML AMPUL.NEB INHALATION ×2 (07:24→12:20)
[2023-12-02 07:29] LABS: ALB/GLOB Ratio 0.8 RATIO (0.9-2.4); AST(SGOT) 13 U/L (15-37); Alanine Aminotransfer ALT/SGPT 13 U/L (16-61); Albumin, Serum 3.1 g/dL (3.2-5.0); Alkaline Phosphatase 90 U/L (45-117); Anion Gap 5 (5-15); BUN 21 mg/dL (7-18); BUN/Creat Ratio 22.1 RATIO (10-20); Calcium,Total 8.9 mg/dL (8.5-10.1); Chloride 104 mmol/L (98-107); Creatinine, Serum 0.95 mg/dL (0.70-1.30); EST Glomerular Filtration Rate 82 mL/min (>60); Est Glom Filt Rate - Afr Amer 100 mL/min (>60); Estimated Creatinine Clearance 87.61 ml/min; Globulin 3.8 g/dL (2.2-4.2); Glucose 103 mg/dL (74-106); Potassium 4.2 mmol/L (3.5-5.1); Protein, Total 6.9 g/dL (6.4-8.2); Sodium Level 138 mmol/L (136-145)
[2023-12-02] MEDS: Loratadine 10 MG Tablet PO (09:09)
[2023-12-02] MEDS: SACUBITRIL/VALSARTAN 24/26 MG TABLET 1 EACH PO (09:09)
[2023-12-02] MEDS: levETIRAcetam 500 MG Tablet PO (09:09)
[2023-12-02] MEDS: Cholecalciferol (VIT D3) 25 MCG TABLET (1,000 UNITS) 100 MCG PO (09:09)
[2023-12-02] MEDS: Pantoprazole Sodium 40 MG Tablet PO (09:09)
[2023-12-02] MEDS: Ranolazine 500 MG Tablet PO (09:09)
[2023-12-02] MEDS: Escitalopram Oxalate 10 MG Tablet PO (09:09)
[2023-12-02] MEDS: Magnesium Chloride 64 MG Delay Rel.Tablet 128 MG PO (09:09)
[2023-12-02] MEDS: Furosemide 40 MG Tablet PO (09:10)
[2023-12-02] MEDS: Multivitamins,Ther W-Minerals Tablet 1 TABLET PO (09:10)
[2023-12-02] MEDS: Aspirin E.C. 81 MG Tablet PO (09:10)
[2023-12-02] MEDS: Carvedilol 25 MG Tablet PO ×2 (09:10→17:45)
[2023-12-02] MEDS: Spironolactone 25 MG Tablet PO (09:11)
[2023-12-02] MEDS: Finasteride 5 MG Tablet PO (09:11)
[2023-12-02] MEDS: Clopidogrel Bisulfate 75 MG Tablet PO (09:14)
--- NOTE | 2023-12-02 09:39 | PCM.PN.HOSP ---
Reason for Visit Reason for Visit: Diagnoses Dizziness and giddiness (11/30/23) Slurred speech (11/30/23) Personal history of transient ischemic attack (TIA), and cerebral infarction without residual deficits (11/30/23) Personal history of other diseases of the circulatory system (11/30/23) Subjective Subjective Patient had a hypoglycemic episode during the night. His long-acting insulin held. Placed on D5 with Q2 monitoring of glucose levels Objective Data Objective Data Vital Signs: Vital Signs Temp Pulse Resp BP Pulse Ox O2 Del Method O2 Flow Rate 97.8 F 60 15 104/61 100 Nasal Cannula 3 12/02/23 08:42 12/02/23 08:42 12/02/23 08:42 12/02/23 08:42 12/02/23 09:24 12/02/23 09:24 12/02/23 09:24 FiO2 24 12/02/23 04:10 Oxygen Flow Rate (L/min) 3 Oxygen Delivery Method Nasal Cannula Weight: 114.1 kg Body Mass Index (BMI) 27.3 Intake & Output: Intake and Output for Last 24 Hours 11/30/23 12/01/23 12/02/23 23:59 23:59 23:59 Intake Total 299.95 / 299.95 250 / 250 Output Total 125 / 125 450 / 450 Balance -125 / -125 299.95 / 49.95 -200 / -200 Lab / Micro Data 12/02/23 06:03 12/02/23 06:03 Labs: Laboratory Results - last 24 hr 12/01/23 09:34: POC Glucose 305 H 12/01/23 12:15: POC Glucose 283 H 12/01/23 15:54: POC Glucose 197 H 12/01/23 22:56: POC Glucose 27 L* 12/01/23 23:12: POC Glucose 273 H 12/01/23 23:31: POC Glucose 133 H 12/02/23 00:30: POC Glucose 50 L 12/02/23 01:15: POC Glucose 115 H 12/02/23 02:23: POC Glucose 83 12/02/23 03:15: POC Glucose 79 12/02/23 04:34: POC Glucose 106 12/02/23 06:02: POC Glucose 100 12/02/23 06:03: WBC 6.7, RBC 3.90 L, Hgb 12.2 L, Hct 36.4 L, MCV 93.3, MCH 31.3, MCHC 33.5, RDW Std Deviation 48.3 H, RDW Coeff of Cinda 14.5, Plt Count 165, MPV 10.1, Immature Gran % (Auto) 0.300, Neut % (Auto) 79.7 H, Lymph % (Auto) 12.2 L, [place] % (Auto) 6.5, Eos % (Auto) 1.1, Baso % (Auto) 0.2, Absolute Neuts (auto) 5.3, Absolute Lymphs (auto) 0.81 L, Nucleated RBC % 0, Sodium 138, Potassium 4.2, Chloride 104, Carbon Dioxide 28.0, Anion Gap 5, BUN 21 H, Creatinine 0.95, Estim Creat Clear Calc 87.61, Est GFR (MDRD) Af Amer 100, Est GFR (MDRD) Non-Af 82, BUN/Creatinine Ratio 22.1 H, Glucose 103, Calcium 8.9, Total Bilirubin 0.80, AST 13 L, ALT 13 L, Alkaline Phosphatase 90, Total Protein 6.9, Albumin 3.1 L, Globulin 3.8, Albumin/Globulin Ratio 0.8 L ABG Data ABG results: ABG 12/01/23 23:28 Specimen Type ART Sample Site L Radial pH 7.29 L Bicarbonate Actual 30.9 H Total CO2 33 Base Excess 4 H O2 Saturation 99 O2 % 4.0 ABG pCO2 64.5 H ABG pO2 134 H Stefano Test Positive O2 Delivery Device Cannula Vent Mode Not entered Radiography Diagnostic Testing: Radiology Impression Head/Neck CTA 11/30/23 19:50 IMPRESSION: Atherosclerotic change of the aorta without evidence for hemodynamically significant stenosis or major vessel occlusion Electronically Signed: Zeb Segura MD at 20:44 EDT , Physical Exam Narrative GENERAL: cooperative HEENT: Atraumatic; normocephalic EYES; Anicteric, Normal Conjunctiva NECK; supple, normal thyroid, RESPIRATORY: Diminished to auscultation CARDIOVASCULAR: Regular S1 S2, GI: soft, normoactive bowel sounds, : No Renal angle tenderness; EXTREMITIES: No edema, no clubbing, MUSCULOSKELETAL: no muscle wasting NEURO: Awake; no lateralizing signs. SKIN: No Rash PSYCH; Flat affect Assessment & Plan Assessment/Plan (1) History of stroke: (2) History of coronary artery disease: (3) Slurred speech: (4) Dizziness: PLAN: Plan Patient is a 73-year-old gentleman with multiple comorbidities including previous CVA admitted with disequilibrium. Admitted to monitored bed where patient is currently undergoing evaluation 1. Disequilibrium ? Patient admitted to monitored bed placed on every 4 neurochecks as part of his management ordered MRI (pending clearance by radiology given the presence of an AICD) and consultation placed to telemetry neuro ? 12/02/2023; MRI of the brain obtained did show No evidence for acute infarct or enhancing intracranial mass. Mild chronic involutional and white matter changes. With patient having developed hypoglycemia during the evening do suspect patient low glucose levels contributing to his symptoms 2. Hypoglycemia ? Secondary to use of long-acting insulin patient long-acting insulin subsequently held started on dextrose with Q2 monitoring of glucose levels ordered 3. Diabetes mellitus type II -patient's oral hypoglycemics held. Placed on long acting insulin, Accu-Cheks a.c. and at bedtime and covered with sliding scale insulin ? 12/02/2023; patient did develop hypoglycemia during the night his long-acting insulin held started on D5 with every 2 monitoring of of his glucose levels 4. Chronic hypoxic respiratory failure ? Secondary to combination of COPD, obstructive sleep apnea patient is on oxygen 4 L at baseline 5. Obstructive sleep apnea ? BiPAP at night 6. History of previous CVA ? With residual dysarthria patient is on antiplatelet therapy 7. BPH with lower urinary obstructive symptoms - Patient treated with tamsulosin 8. Sick sinus syndrome ? Status post pacemaker placement 9. Dyslipidemia -Patient is on statin therapy, continued at home dose 10. GERD ? On PPI 11. Class I obesity with BMI of 34.3 ? Complicating care weight loss advised 12. Depression ? Patient is on SSRI continue 13. DVT prophylaxis -Subcu Lovenox Time spent in the patient's overall evaluation,decision-making process, review of diagnostic data, adjustment of management, discussion with other providers, nursing nursing and ancillary staff involved in patient's care documentation, 52 minutes Charges/Coding Visit Charges Inpatient E&M: [id number] [place] [id number]
[2023-12-02 09:55] LABS: Bedside Glucose 125 mg/dL (74-106)
[2023-12-02 12:09] LABS: Bedside Glucose 259 mg/dL (74-106)
--- NOTE | 2023-12-02 14:03 | PCM.DC.SUM ---
Providers Date of Admission: 12/02/23 Date of Discharge: 12/02/23 Primary Care Physician: [facility] Reason For Visit: DIZZINESS & SLURRED SPEECH Diagnosis Discharge Diagnosis (1) History of stroke: Status: Acute Code(s): Z86.73 - Personal history of transient ischemic attack (TIA), and cerebral infarction without residual deficits (2) History of coronary artery disease: Status: Acute Code(s): Z86.79 - Personal history of other diseases of the circulatory system (3) Slurred speech: Status: Acute Code(s): R47.81 - Slurred speech (4) Dizziness: Status: Acute Code(s): R42 - Dizziness and giddiness Plan Patient is a 73-year-old gentleman with multiple comorbidities including previous CVA admitted with disequilibrium. Admitted to monitored bed where patient is currently undergoing evaluation 1. Disequilibrium ? Patient admitted to monitored bed placed on every 4 neurochecks as part of his management ordered MRI (pending clearance by radiology given the presence of an AICD) and consultation placed to telemetry neuro ? 12/02/2023; MRI of the brain obtained did show No evidence for acute infarct or enhancing intracranial mass. Mild chronic involutional and white matter changes. With patient having developed hypoglycemia during the evening do suspect patient low glucose levels contributing to his symptoms 2. Hypoglycemia ? Secondary to use of long-acting insulin patient long-acting insulin subsequently held started on dextrose with Q2 monitoring of glucose levels ordered ? Decision was made to discharge patient after discussing the case with the . Made adjustment to patient home insulin regimen. Patient was on 130 units of U insulin twice daily this was adjusted to 50 units twice a day 3. Diabetes mellitus type II -patient's oral hypoglycemics held. Placed on long acting insulin, Accu-Cheks a.c. and at bedtime and covered with sliding scale insulin ? 12/02/2023; patient did develop hypoglycemia during the night his long-acting insulin held started on D5 with every 2 monitoring of of his glucose levels 4. Chronic hypoxic respiratory failure ? Secondary to combination of COPD, obstructive sleep apnea patient is on oxygen 4 L at baseline 5. Obstructive sleep apnea ? BiPAP at night 6. History of previous CVA ? With residual dysarthria patient is on antiplatelet therapy 7. BPH with lower urinary obstructive symptoms - Patient treated with tamsulosin 8. Sick sinus syndrome ? Status post pacemaker placement 9. Dyslipidemia -Patient is on statin therapy, continued at home dose 10. GERD ? On PPI 11. Class I obesity with BMI of 34.3 ? Complicating care weight loss advised 12. Depression ? Patient is on SSRI continue 13. DVT prophylaxis -Subcu Lovenox Time spent in the patient's overall evaluation,decision-making process, review of diagnostic data, adjustment of management, discussion with other providers, nursing nursing and ancillary staff involved in patient's care documentation, 52 minutes Medications at Discharge Home Medications aspirin 81 mg tablet,delayed release 81 mg PO DAILY HEART HEALTH 06/11/18 atorvastatin 80 mg tablet 80 mg PO QHS CHOLESTEROL 06/11/18 escitalopram oxalate 10 mg tablet 10 mg PO DAILY DEPRESSION 06/11/18 finasteride 5 mg tablet 5 mg PO DAILY PROSTATE 06/11/18 nitroglycerin 0.4 mg sublingual tablet 0.4 mg sublingual Q5M PRN CHEST PAIN #30 TABLETS 07/22/18 pantoprazole 40 mg tablet,delayed release 40 mg PO BID GERD 05/18/20 carvedilol 25 mg tablet 25 mg PO BID BLOOD PRESSURE 06/22/20 ranolazine 500 mg tablet,extended release,12 hr 500 mg PO Q12H CHEST PAIN 06/22/20 tamsulosin 0.4 mg capsule 0.4 mg PO QHS PROSTATE 08/10/20 clopidogrel 75 mg tablet (Plavix) 75 mg PO DAILY BLOOD THINNER 01/07/21 albuterol sulfate 2.5 mg/3 mL (0.083 %) solution for nebulization 2.5 mg inhalation Q6H PRN SHORTNESS OF BREATH/WHEEZING 12/12/21 ketoconazole 2 % shampoo 1 applic topical DAILY DRY SCALP 12/12/21 magnesium oxide 420 mg tablet 420 mg PO BID SUPPLEMENT 12/12/21 multivitamin with minerals 1 tab PO DAILY SUPPLEMENT 12/12/21 spironolactone 25 mg tablet (Aldactone) 25 mg PO DAILY BLOOD PRESSURE 09/10/22 acetaminophen 325 mg tablet (Tylenol) 650 mg PO 4X/DAY PRN PAIN 01/27/23 cyclobenzaprine 10 mg tablet 10 mg PO BID PRN MUSCLE SPASMS 01/27/23 budesonide 160 mcg-glycopyr 9 mcg-formot 4.8 mcg/actuation HFA inhaler (Breztri [employer]) 2 inh inhalation BID SHORTNESS OF BREATH 03/04/23 cholecalciferol (vitamin D3) 50 mcg (2,000 unit) capsule (D3-2000) 100 mcg PO DAILY SUPPLEMENT 03/04/23 levetiracetam 500 mg tablet 500 mg PO BID seizure 05/27/23 furosemide 40 mg tablet 40 mg PO DAILY EDEMA 07/19/23 sacubitril 24 mg-valsartan 26 mg tablet (Entresto) 1 tab PO BID heart 08/12/23 diclofenac sodium 0.1 % eye drops 1 drp LEFT EYE Q4H 11/30/23 loratadine 10 mg tablet (Allerclear) 10 mg PO DAILY PRN allergy symptoms 11/30/23 prednisolone acetate 1 % eye drops,suspension (Pred Forte) 1 drp LEFT EYE Q4H 11/30/23 insulin regular hum U-500 conc 500 unit/mL(3 mL) subcut pen (Humulin R U-500 (Conc) Insulin Kwikpen) See Rx Instructions subcut BID DIABETES #50 mL 12/02/23 Weight / BMI Weight Weight: 114.1 kg Body Mass Index (BMI) 27.3 ABG / Lab / Microbiology Data 12/02/23 06:03 12/02/23 06:03 Laboratory: Laboratory Results - last 24 hr 12/01/23 15:54: POC Glucose 197 H 12/01/23 22:56: POC Glucose 27 L* 12/01/23 23:12: POC Glucose 273 H 12/01/23 23:31: POC Glucose 133 H 12/02/23 00:30: POC Glucose 50 L 12/02/23 01:15: POC Glucose 115 H 12/02/23 02:23: POC Glucose 83 12/02/23 03:15: POC Glucose 79 12/02/23 04:34: POC Glucose 106 12/02/23 06:02: POC Glucose 100 12/02/23 06:03: WBC 6.7, RBC 3.90 L, Hgb 12.2 L, Hct 36.4 L, MCV 93.3, MCH 31.3, MCHC 33.5, RDW Std Deviation 48.3 H, RDW Coeff of Cinda 14.5, Plt Count 165, MPV 10.1, Immature Gran % (Auto) 0.300, Neut % (Auto) 79.7 H, Lymph % (Auto) 12.2 L, [place] % (Auto) 6.5, Eos % (Auto) 1.1, Baso % (Auto) 0.2, Absolute Neuts (auto) 5.3, Absolute Lymphs (auto) 0.81 L, Nucleated RBC % 0, Sodium 138, Potassium 4.2, Chloride 104, Carbon Dioxide 28.0, Anion Gap 5, BUN 21 H, Creatinine 0.95, Estim Creat Clear Calc 87.61, Est GFR (MDRD) Af Amer 100, Est GFR (MDRD) Non-Af 82, BUN/Creatinine Ratio 22.1 H, Glucose 103, Calcium 8.9, Total Bilirubin 0.80, AST 13 L, ALT 13 L, Alkaline Phosphatase 90, Total Protein 6.9, Albumin 3.1 L, Globulin 3.8, Albumin/Globulin Ratio 0.8 L 12/02/23 08:41: POC Glucose 125 H 12/02/23 11:51: POC Glucose 259 H ABG: ABG 12/01/23 23:28 Specimen Type ART Sample Site L Radial pH 7.29 L Bicarbonate Actual 30.9 H Total CO2 33 Base Excess 4 H O2 Saturation 99 O2 % 4.0 ABG pCO2 64.5 H ABG pO2 134 H Stefano Test Positive O2 Delivery Device Cannula Vent Mode Not entered Radiography Diagnostic Testing: Radiology Impression Head/Neck CTA 11/30/23 19:50 IMPRESSION: Atherosclerotic change of the aorta without evidence for hemodynamically significant stenosis or major vessel occlusion Electronically Signed: Zeb Segura MD at 20:44 EDT , Brain CT 12/02/23 06:00 IMPRESSION: Negative head/brain CT without intravenous contrast and unchanged when compared to 11/30/2023. Electronically Signed: Adolfo Castro MD at 8:38 EDT , D/C Instructions Discharge Diet: 1800 Calorie Control Diet Discharge Activity: Return to Normal Activity Call your doctor if you observe: Fever of 101 or Higher, Shortness of breath, Fainting spells and Chest pain Meaningful Use Info Meaningful Use Meaningful Use Diagnoses (Choose all that apply): None applicable Ischemic Stroke Statin Dosing Therapy Reference: STATIN DOSE THERAPY REFERENCE: * Patients > 75 years receive moderate or high dose statin therapy. * Patients 75 years or YOUNGER should receive HIGH intensity statin dose unless contraindicated. You will be required to document reason for non-treatment if statin daily dose does not meet guidelines. HIGH DOSE STATIN THERAPY DAILY Atorvastatin > than or = to 40 mg Rosuvastatin > than or = to 20 mg Amlodipine + Atorvastatin > than or = to 2.5/40 mg Ezetimibe + Simvastatin 10/80 mg Simvastatin 80mg Discharge Plan Admission Admit Date/Time: 12/02/23 11:52 Attending Provider: Pancho Galo Primary Care Provider: [facility],[place] Consulting Providers: Denis Segura Discharge Orders/Prescriptions Prescriptions: Continued clopidogrel [Plavix] 75 mg tablet 75 mg PO DAILY levetiracetam 500 mg tablet 500 mg PO BID atorvastatin 80 MG tablet 80 mg PO QHS aspirin 81 MG tablet 81 mg PO DAILY finasteride 5 MG tablet 5 mg PO DAILY escitalopram oxalate 10 MG tablet 10 mg PO DAILY nitroglycerin 0.4 MG tablet, sublingual 0.4 mg sublingual Q5M PRN (Reason: CHEST PAIN ) Qty: 30 0RF pantoprazole 40 MG tablet 40 mg PO BID carvedilol 25 MG tablet 25 mg PO BID ranolazine 500 mg Tablet Extended Release 12 Hr 500 mg PO Q12H tamsulosin 0.4 MG capsule 0.4 mg PO QHS magnesium oxide 420 mg Tablet 420 mg PO BID ketoconazole 2 % Shampoo 1 applic TOPICAL DAILY albuterol sulfate 2.5 mg /3 mL (0.083 %) Solution For Nebulization 2.5 mg INHALATION Q6H PRN (Reason: SHORTNESS OF BREATH/WHEEZING ) multivitamin with minerals Tablet 1 tab PO DAILY spironolactone [Aldactone] 25 mg tablet 25 mg PO DAILY acetaminophen [Tylenol] 325 MG tablet 650 mg PO 4X/DAY PRN (Reason: PAIN ) cyclobenzaprine 10 mg tablet 10 mg PO BID PRN (Reason: MUSCLE SPASMS) cholecalciferol (vitamin D3) [D3-2000] 50 mcg (2,000 unit) capsule 100 mcg PO DAILY Breztri Aerosphere 160-9-4.8 mcg/actuation HFA aerosol inhaler 2 inh inhalation BID Patient Comments: PT STATES THEY HAVE THE INHALER BUT IT DOES NOT WORK WELL FOR THEM Rx Instructions: RINSE MOUTH AFTER USE furosemide 40 mg Tablet 40 mg PO DAILY diclofenac sodium 0.1 % drops 1 drp LEFT EYE Q4H Rx Instructions: IN LEFT EYE FOUR TIMES A DAY STARSTING AFTER SURGERY AND CONTINUE DIRECTED prednisolone acetate [Pred Forte] 1 % drops,suspension 1 drp LEFT EYE Q4H loratadine [Allerclear] 10 mg tablet 10 mg PO DAILY PRN (Reason: allergy symptoms) Entresto 24-26 mg tablet 1 tab PO BID Changed Humulin R U-500 (Conc) Kwikpen 500 unit/mL (3 mL) insulin pen See Rx Instructions subcut BID Qty: 50 0RF Rx Instructions: 50 units with breakfast; 50 units with dinner Referrals / [facility] [[facility] - Disposition Disposition (needs filled in before D/C Order can be placed): Home, Self Care Charges/Coding Visit Charges Inpatient E&M: [id number] Disch Hosp >30min
[2023-12-02 15:30] LABS: Bedside Glucose 321 mg/dL (74-106)
[2023-12-02 17:12] LABS: Bedside Glucose 304 mg/dL (74-106)
== END 2023-12-02 16:47 | disposition home or self-care (01) | DRG 638 ==
LOC: ED 21:02 → PCU 21:28
PROVIDERS: Family Medicine; Admitting Provider Family Medicine; Emergency Provider Emergency Medicine; Visit Provider Internal Medicine
DX: E11.649 Type 2 diabetes mellitus with hypoglycemia without coma (principal); J96.11 Chronic respiratory failure with hypoxia; I69.354 Hemiplegia and hemiparesis following cerebral infarction affecting left non-dominant side; N13.8 Other obstructive and reflux uropathy; I49.5 Sick sinus syndrome; Z99.81 Dependence on supplemental oxygen; J44.9 Chronic obstructive pulmonary disease, unspecified; I10 Essential (primary) hypertension; F32.A Depression, unspecified; Z68.34 Body mass index [BMI] 34.0-34.9, adult; G47.33 Obstructive sleep apnea (adult) (pediatric); I25.10 Atherosclerotic heart disease of native coronary artery without angina pectoris; E78.5 Hyperlipidemia, unspecified; K21.9 Gastro-esophageal reflux disease without esophagitis; I25.2 Old myocardial infarction; I69.322 Dysarthria following cerebral infarction; E16.A1 Hypoglycemia level 1; N40.1 Benign prostatic hyperplasia with lower urinary tract symptoms; Z95.1 Presence of aortocoronary bypass graft; Z95.5 Presence of coronary angioplasty implant and graft; E66.811 Obesity, class 1; Z95.810 Presence of automatic (implantable) cardiac defibrillator; Z79.02 Long term (current) use of antithrombotics/antiplatelets; Z79.51 Long term (current) use of inhaled steroids; Z79.82 Long term (current) use of aspirin; Z79.84 Long term (current) use of oral hypoglycemic drugs; Z79.899 Other long term (current) drug therapy; Z87.891 Personal history of nicotine dependence
CPT/HCPCS: 36415; 36600; 70450; 70496; 70498; 71045; 73030; 80048; 80053; 80061; 82803; 82962; 84484; 85025; 85610; 85730; 92610; 93005; 94002; 94003; 94640; 94762; 97162; 97166; 97802; 99285; Q9967; A4216

== ENCOUNTER 2023-12-21 12:06 | Emergency (ER) | payer OTHER, SELFPAY ==
[2023-12-21 12:08] VITALS: BP 141/63; PULSE 61; RESP 18; TEMP 36.3; O2SAT 100
--- NOTE | 2023-12-21 12:20 | EKG12_ITS ---
Test Reason : DIZZY Blood Pressure : */* mmHG Vent. Rate : 64 BPM Atrial Rate : 69 BPM P-R Int : * ms QRS Dur : 144 ms QT Int : 494 ms P-R-T Axes : * 260 111 degrees QTcB Int : 509 ms a- Ventricular-paced rhythm , occas PAC Biventricular pacemaker detected Abnormal ECG Confirmed by Flako Sheikh ([id number]), editor magazine KENDALL ROCHE ([id number]) on 12/22/2023 9:18:36 AM Referred By: Shai Hassan Confirmed By: Flako Sheikh
--- NOTE | 2023-12-21 12:46 | CT_ITS ---
STUDY: CT BRAIN WITHOUT CONTRAST REASON FOR EXAM: Male, 73 years old. Dizziness. RADIATION DOSAGE (If Supplied By Facility): CTDIvol = ( 44.99 ) mGy, DLP = ( 829.85 ) mGycm TECHNIQUE: Transaxial CT imaging of the brain was performed without administration of intravenous contrast material. Individualized dose optimization techniques were used for this CT. COMPARISON: Comparison is made with prior study dated December 02, 2023. FINDINGS: Normal soft tissue structures. Normal calvarium. There is moderate cerebral atrophy with widening of the extra-axial spaces and ventricular dilatation. There are areas of decreased attenuation within the white matter tracts of the supratentorial brain, consistent with microvascular disease changes. Normal basal ganglia and thalami. Normal brainstem. Normal cerebellum. There is no intracranial hemorrhage. There are no findings of an acute ischemic infarction. Atherosclerotic plaque formation of the cavernous portions of the internal carotid arteries bilaterally. Normal visualized paranasal sinuses. CT/Brain/Head without Contrast IMPRESSION: Chronic involutional changes of the brain. Electronically Signed: Mick García MD at 13:28 EST ,
[2023-12-21 13:14] VITALS: BMI 34.7
[2023-12-21 13:15] VITALS: BP 107/59; BP 117/64; BP 127/66; PULSE 63; PULSE 64
[2023-12-21 13:32] LABS: Absolute Lymphocyte Count 0.72 X10^3/uL (0.83-4.51); Basophil# 0.02 X10^3/uL; Basophil% 0.4 % (0-1); Eosinophil# 0.08 X10^3/uL; Eosinophils% 1.5 % (0-5); Hematocrit 33.7 % (40-54); Hemoglobin 11.3 g/dL (13.0-16.5); Lymphocyte # 0.72 X10^3/ul (0.83-4.51); Lymphocyte % 13.8 % (19-41); Mean Corp Hgb Conc 33.5 g/dL (32-36); Mean Corpuscular Volume 92.3 fL (80-94); Mean Platelet Vol. 11.1 fl (6.2-12.0); Monocyte# 0.32 X10^3/uL; Monocyte% 6.2 % (0-10); NRBC Flagged by Analyzer 0 % (0-5); Neutrophil # 4.02 X10^3/uL (2.7-7.7); Neutrophil % 77.3 % (47-70); Platelet Count 136 K/mm3 (150-450); RBC Distribution Width CV 13.7 % (11.6-14.6); RBC Distribution Width SD 46.4 fl (35.1-43.9); Red Blood Count 3.65 M/mm3 (4.6-6.2); White Blood Count 5.2 K/mm3 (4.4-11.0)
[2023-12-21 13:39] LABS: Bacteria 0 SEEN /hpf (None Seen); Mucous, Urine 0 SEEN /hpf (<or=2+); Red Blood Cells-Urine 0 SEEN /hpf (0-5)
[2023-12-21 13:41] LABS: Anion Gap 6 (5-15); BUN 14 mg/dL (7-18); BUN/Creat Ratio 13.5 RATIO (10-20); Calcium,Total 8.3 mg/dL (8.5-10.1); Chloride 99 mmol/L (98-107); Creatinine, Serum 1.04 mg/dL (0.70-1.30); EST Glomerular Filtration Rate 74 mL/min (>60); Est Glom Filt Rate - Afr Amer 90 mL/min (>60); Estimated Creatinine Clearance 78.66 ml/min; Glucose 276 mg/dL (74-106); Potassium 3.6 mmol/L (3.5-5.1); Sodium Level 138 mmol/L (136-145)
[2023-12-21 13:43] LABS: Color, Urine Yellow (Yellow); Glucose, Dipstick 1000 mg/dl (Normal); Ketone-Dipstick 5 mg/dl (Negative); Leukocyte Esterase-Dipstick 25 /ul (Negative); Nitrite-Dipstick Negative (Negative); Occult Blood-Urine Negative /ul (Negative); Protein-Dipstick 15 mg/dl (Negative); Specific Gravity, Urine 1.015 (1.002-1.030); Urine Bilirubin Dipstick Negative (Negative); Urine Clarity Clear (Clear); Urine Urobilinogen Normal (Normal)
--- NOTE | 2023-12-21 13:50 | EDS_ITS ---
HPI History of Present Illness Chief Complaint: Dizziness Informant: patient and spouse/S.O. Narrative Narrative: 73-year-old male presenting with intermittent dizziness for the past week. He states it occurs every time he stands up and gets better when he sits down last for minutes at a time. He has a very difficult time describing it. He admits that it feels like lightheadedness, but also that it feels like he is going to fall over but cannot describe the sensation of spinning or distinct movement or say whether he does not have those things. He denies any associated nausea or vomiting or headache. No fall or injury. He denies any new tinnitus or hearing disturbance. He cannot tell if he is triggering this with any other movements other than standing up. He is very poor historian. concerned that his blood pressure was in the 90's last night. [facility] Medical History ICD (implantable cardioverter-defibrillator) in place History of CAD (coronary artery disease) Lung nodule Obesity Chronic hypoxemic respiratory failure COPD (chronic obstructive pulmonary disease) Left-sided weakness Chest pain Syncope DNR (do not resuscitate) DNR (do not resuscitate) discussion Heart failure EKATERINA (obstructive sleep apnea) Anemia Chronic hyperglycemia History of TIAs Conversion reaction Sick sinus syndrome Pacemaker battery depletion Hemiparesis, left Former smoker On home oxygen therapy Pacemaker Congestive heart failure (CHF) Myocardial infarct Chest pain Pulmonary embolism Dysarthria BiPAP (biphasic positive airway pressure) dependence Wears hearing aid in both ears Diabetes Stroke/cerebrovascular accident COPD (chronic obstructive pulmonary disease) History of fractured rib CAD (coronary artery disease) Essential (primary) hypertension Atherosclerotic heart disease [place] coronary artery w/angina pectoris EKATERINA (obstructive sleep apnea) Abnormal EKG DM type 2 (diabetes mellitus, type 2) Chronic respiratory failure Obesity Hyperlipidemia Home Medications ?Medication ?Instructions ?Recorded ?Last Taken ?Type aspirin 81 mg tablet,delayed 81 mg PO DAILY HEART HEALTH 06/11/18 08/11/23 History release atorvastatin 80 mg tablet 80 mg PO QHS CHOLESTEROL 06/11/18 08/11/23 History escitalopram oxalate 10 mg tablet 10 mg PO DAILY DEPRESSION 06/11/18 08/11/23 History finasteride 5 mg tablet 5 mg PO DAILY PROSTATE 06/11/18 08/11/23 History nitroglycerin 0.4 mg sublingual 0.4 mg sublingual Q5M PRN CHEST 07/22/18 01/17/20 Rx tablet PAIN #30 TABLETS pantoprazole 40 mg tablet,delayed 40 mg PO BID GERD 05/18/20 08/11/23 History release carvedilol 25 mg tablet 25 mg PO BID BLOOD PRESSURE 06/22/20 08/11/23 History ranolazine 500 mg tablet,extended 500 mg PO Q12H CHEST PAIN 06/22/20 08/11/23 History release,12 hr tamsulosin 0.4 mg capsule 0.4 mg PO QHS PROSTATE 08/10/20 08/11/23 History clopidogrel 75 mg tablet (Plavix) 75 mg PO DAILY BLOOD THINNER 01/07/21 08/11/23 History albuterol sulfate 2.5 mg/3 mL 2.5 mg inhalation Q6H PRN 12/12/21 08/11/23 History (0.083 %) solution for nebulization SHORTNESS OF BREATH/WHEEZING ketoconazole 2 % shampoo 1 applic topical DAILY DRY SCALP 12/12/21 03/03/23 History magnesium oxide 420 mg tablet 420 mg PO BID SUPPLEMENT 12/12/21 08/11/23 History multivitamin with minerals 1 tab PO DAILY SUPPLEMENT 12/12/21 08/11/23 History spironolactone 25 mg tablet 25 mg PO DAILY BLOOD PRESSURE 09/10/22 08/11/23 History (Aldactone) acetaminophen 325 mg tablet 650 mg PO 4X/DAY PRN PAIN 01/27/23 08/11/23 History (Tylenol) cyclobenzaprine 10 mg tablet 10 mg PO BID PRN MUSCLE SPASMS 01/27/23 08/11/23 History cholecalciferol (vitamin D3) 50 100 mcg PO DAILY SUPPLEMENT 03/04/23 08/11/23 History mcg (2,000 unit) capsule (D3-2000) levetiracetam 500 mg tablet 500 mg PO BID seizure 05/27/23 08/11/23 History furosemide 40 mg tablet 40 mg PO DAILY EDEMA 07/19/23 08/11/23 History sacubitril 24 mg-valsartan 26 mg 1 tab PO BID heart 08/12/23 08/11/23 History tablet (Entresto) loratadine 10 mg tablet 10 mg PO DAILY PRN allergy symptoms 11/30/23 Unknown History (Allerclear) insulin regular hum U-500 conc 500 See Rx Instructions subcut BID 12/02/23 08/11/23 Rx unit/mL(3 mL) subcut pen (Humulin DIABETES #50 mL R U-500 (Conc) Insulin Kwikpen) fluticasone fur. 200 mcg-umeclid 1 inh inhalation DAILY #60 ea 12/14/23 Unknown Rx 62.5 mcg-vilant 25 mcg inhalat.powder (Trelegy Ellipta) Allergy/AdvReac Type Severity Reaction Status Date / Time ezetimibe Allergy Unknown Verified 12/21/23 12:08 Fish Containing Products Allergy Unknown Verified 12/21/23 12:08 glyburide Allergy Unknown Verified 12/21/23 12:08 isosorbide Allergy PT UNSURE Verified 12/21/23 12:08 OF REACTION lisinopril Allergy Unknown Verified 12/21/23 12:08 metformin Allergy Nausea Verified 12/21/23 12:08 metoprolol Allergy Unknown Verified 12/21/23 12:08 simvastatin Allergy Unknown Verified 12/21/23 12:08 tramadol Allergy Other Verified 12/21/23 12:08 iron AdvReac Mild Vomiting Verified 12/21/23 12:08 gabapentin AdvReac Other Verified 12/21/23 12:08 Family History Father No problems noted. Surgical History History of cholecystectomy History of knee replacement procedure of left knee History of permanent cardiac pacemaker placement (01/14/21) H/O coronary artery bypass surgery History of coronary artery stent placement Social History household members: spouse Smoking Status: Former smoker details: Unknown substance use type: does not use ROS ROS ED Constitutional Constitutional ED: Denies chills or fever(s) Eyes Eyes: Denies change in vision or diplopia ENT ENT ED: Reports as per HPI and dizziness; Denies epistaxis, rhinorrhea, sore throat or throat swelling Cardiovascular Cardiovascular: Reports fatigue and lightheadedness; Denies chest pain, leg edema, palpitations or syncope Respiratory/Chest Respiratory/Chest: Denies cough Gastrointestinal Gastrointestinal: Denies abdominal pain, diarrhea, nausea or vomiting Genitourinary Genitourinary ED: Denies dysuria or hematuria Musculoskeletal Musculoskeletal: Denies back pain or neck pain Integumentary Denies abscess or rash Neurologic Neurologic: Denies headache(s), paresthesias or weakness EXAM Physical Exam Const Vital Signs: 12/21/23 12:08 12/21/23 13:15 12/21/23 14:07 Temperature 97.4 F L Temperature Source Oral Pulse Rate 61 60 Pulse Rate [Lying] 64 Pulse Rate [Sitting (for 1 minute prior to obtaining)] 64 Pulse Rate [Standing (for 1 minute prior to obtaining)] 63 Respiratory Rate 18 18 Blood Pressure 141/63 H 131/68 H Blood Pressure [Lying] 127/66 H Blood Pressure [Sitting (for 1 minute prior to obtaining)] 117/64 Blood Pressure [Standing (for 1 minute prior to obtaining)] 107/59 L Blood Pressure Mean 89 89 Blood Pressure Mean [Lying] 86 Blood Pressure Mean [Sitting (for 1 minute prior to obtaining)] 81 Blood Pressure Mean [Standing (for 1 minute prior to obtaining)] 75 Pulse Ox 100 95 Oxygen Delivery Method Room Air Positive well nourished, well developed and obese General Appearance ED: well developed and NAD Nutritional Appearance: obese HEENT Reports TM's clear and moist mucous membranes normocephalic and atraumatic Tympanic Membrane ED: Yes TM's clear Eyes PERRL and EOMs intact bilaterally Neck full ROM and supple Resp normal respiratory effort and clear to auscultation bilaterally Cardio regular rate, regular rhythm and no murmurs GI non-tender and non-distended Auscultation: normoactive bowel sounds Palpation: soft Back/Spine no CVA tenderness General Back: other FROM Extremity normal to inspection General Extremety ED: Negative for edema, pulses abnormal or tenderness General Extremity: Negative for edema or pulses abnormal Neuro oriented x3, CN's II-XII intact bilaterally and no sensory deficits noted Neuro Narrative: Not able to perform [id number] due to weakness in legs that is at baseline for him, but performs [id number] normally bilaterally. No pathologic nystagmus. Skew test is normal. Head impulse test not performed due to patient asymptomatic at the time. Sensorium / Orientation: awake and alert Motor Exam: general weakness Skin no rashes or lesions noted and no wounds MDM MDM MDM Narrative Medical decision making narrative: Obtain labs as well as orthostatics given his patient has symptoms that sound like orthostasis, but since he cannot describe the dizziness also obtained a CT of the head to evaluate for the possibility of subacute stroke, I reviewed the images and the report which I agree with it is negative for any acute. In the meantime orthostatics were performed and are positive with regards to his blood pressure going down 20 points systolic. Therefore he is given 500 cc of IV fluids, he does have a history of heart failure with relatively preserved ejection fraction, last measured at 45-50% in July of this year, so I am not going to give him a lot of IV fluid. He does have hyperglycemia and glycosuria which could be leading to some mild dehydration, right now his BUN is 14 with a creatinine of 1, which is only borderline/mild. After the fluids, he stood up and did not feel dizzy, blood pressure 131/68, stable for discharge and follow-up. Lab Data Attestation: I reviewed the patient's lab results. Labs: Laboratory Results - last 24 hr 12/21/23 12/21/23 12:40 13:30 WBC 5.2 RBC 3.65 L Hgb 11.3 L Hct 33.7 L MCV 92.3 MCH 31.0 MCHC 33.5 RDW Std Deviation 46.4 H RDW Coeff of Cinda 13.7 Plt Count 136 L MPV 11.1 Immature Gran % (Auto) 0.800 Neut % (Auto) 77.3 H Lymph % (Auto) 13.8 L [place] % (Auto) 6.2 Eos % (Auto) 1.5 Baso % (Auto) 0.4 Absolute Neuts (auto) 4.0 Absolute Lymphs (auto) 0.72 L Nucleated RBC % 0 Sodium 138 Potassium 3.6 Chloride 99 Carbon Dioxide 33.0 H Anion Gap 6 BUN 14 Creatinine 1.04 Estim Creat Clear Calc 78.66 Est GFR (MDRD) Af Amer 90 Est GFR (MDRD) Non-Af 74 BUN/Creatinine Ratio 13.5 Glucose 276 H Calcium 8.3 L Urine Color Yellow Urine Clarity Clear Urine pH 6.0 Ur Specific [place] 1.015 Urine Protein 15 H Urine Glucose (UA) 1000 H Urine Ketones 5 H Urine Occult Blood Negative Urine Nitrite Negative Urine Bilirubin Negative Urine Urobilinogen Normal Ur Leukocyte Esterase 25 H Urine RBC 0 SEEN Urine WBC 0-5 SEEN Ur Squamous Epith Cells 0-5 SEEN Urine Bacteria 0 SEEN Urine Mucus 0 SEEN Radiography Diagnostic Testing: Clinical Impression(s) from Imaging Studies Brain CT 12/21/23 12:46 IMPRESSION: Chronic involutional changes of the brain. Electronically Signed: Mick García MD at 13:28 EST , Rhythm Strip Rhythm Strip: paced Rate: 65 Ectopy: None EKG Initial EKG: Attestation: I personally reviewed and interpreted this EKG as follows: Interpretation: No Acute Injury Pattern and Paced Discharge Plan Triage Chief Complaint: Dizziness ED Provider: Shai Hassan Dx/Rx/DC Orders Clinical Impression: Orthostatic dizziness, Type 2 diabetes mellitus with hyperglycemia, Mild dehydration Instructions: ED Hypotension, Orthostatic Prescriptions: No Action clopidogrel [Plavix] 75 mg tablet 75 mg PO DAILY levetiracetam 500 mg tablet 500 mg PO BID Trelegy Ellipta 200-62.5-25 mcg blister with device 1 inh inhalation DAILY Qty: 60 6RF atorvastatin 80 MG tablet 80 mg PO QHS aspirin 81 MG tablet 81 mg PO DAILY finasteride 5 MG tablet 5 mg PO DAILY escitalopram oxalate 10 MG tablet 10 mg PO DAILY nitroglycerin 0.4 MG tablet, sublingual 0.4 mg sublingual Q5M PRN (Reason: CHEST PAIN ) Qty: 30 0RF pantoprazole 40 MG tablet 40 mg PO BID carvedilol 25 MG tablet 25 mg PO BID ranolazine 500 mg Tablet Extended Release 12 Hr 500 mg PO Q12H tamsulosin 0.4 MG capsule 0.4 mg PO QHS magnesium oxide 420 mg Tablet 420 mg PO BID ketoconazole 2 % Shampoo 1 applic TOPICAL DAILY albuterol sulfate 2.5 mg /3 mL (0.083 %) Solution For Nebulization 2.5 mg INHALATION Q6H PRN (Reason: SHORTNESS OF BREATH/WHEEZING ) multivitamin with minerals Tablet 1 tab PO DAILY spironolactone [Aldactone] 25 mg tablet 25 mg PO DAILY acetaminophen [Tylenol] 325 MG tablet 650 mg PO 4X/DAY PRN (Reason: PAIN ) cyclobenzaprine 10 mg tablet 10 mg PO BID PRN (Reason: MUSCLE SPASMS) cholecalciferol (vitamin D3) [D3-2000] 50 mcg (2,000 unit) capsule 100 mcg PO DAILY furosemide 40 mg Tablet 40 mg PO DAILY loratadine [Allerclear] 10 mg tablet 10 mg PO DAILY PRN (Reason: allergy symptoms) Humulin R U-500 (Conc) Kwikpen 500 unit/mL (3 mL) insulin pen See Rx Instructions subcut BID Qty: 50 0RF Rx Instructions: 50 units with breakfast; 50 units with dinner Entresto 24-26 mg tablet 1 tab PO BID [facility] Provider[facility] Ref[facility] [Primary Care Provider] - 3-5 Days if not improving Activity Restrictions/Additional Instructions: hold your furosemide for one day/dose and drink a little more water than you have been recently. Print Language: Yoruba Disposition Disposition: Home, Self Care
[2023-12-21 13:53] LABS: Squamous Epithelial Cells - UA 0-5 SEEN /hpf (0-5)
[2023-12-21 13:54] LABS: White Blood Cells 0-5 SEEN /hpf (0-5)
[2023-12-21 14:07] VITALS: BP 131/68; PULSE 60; RESP 18; O2SAT 95
[2023-12-21] MEDS: 0.9% Normal Saline (500mL Bag) 500 ML 999 ML IV (14:15)
== END 2023-12-21 15:39 | disposition home or self-care (01) ==
PROVIDERS: Emergency Provider Emergency Medicine; Referring Provider Emergency Medicine; Visit Provider Emergency Medicine
DX: R42 Dizziness and giddiness (principal); I50.32 Chronic diastolic (congestive) heart failure; I11.0 Hypertensive heart disease with heart failure; J44.9 Chronic obstructive pulmonary disease, unspecified; E11.65 Type 2 diabetes mellitus with hyperglycemia; Z87.891 Personal history of nicotine dependence; I25.10 Atherosclerotic heart disease of native coronary artery without angina pectoris; R81 Glycosuria; E78.5 Hyperlipidemia, unspecified; E66.9 Obesity, unspecified; E86.0 Dehydration
CPT/HCPCS: 70450; 80048; 81001; 85025; 93005; 96360; 99284; J7040

== ENCOUNTER 2023-12-31 10:37 | Observation (INO) | payer OTHER, SELFPAY ==
[2023-12-31] VITALS (13 sets, daily range): BP systolic 138–189; BP diastolic 71–87; PULSE 60–70; RESP 18–23; TEMP 36.1–37.1; O2SAT 94–99; BMI 33.8; BMI 33.5
[2023-12-31 11:42] LABS: Absolute Lymphocyte Count 0.69 X10^3/uL (0.83-4.51); Absolute Neutrophil Count 4.3 X10^3/uL (2.0-7.7); Basophil# 0.01 X10^3/uL; Basophil% 0.2 % (0-1); Eosinophil# 0.08 X10^3/uL; Eosinophils% 1.5 % (0-5); Hematocrit 31.3 % (40-54); Hemoglobin 10.7 g/dL (13.0-16.5); Lymphocyte # 0.69 X10^3/ul (0.83-4.51); Lymphocyte % 12.6 % (19-41); Mean Corp Hgb Conc 34.2 g/dL (32-36); Mean Corpuscular Hgb 31.3 pg (27.0-32.0); Mean Corpuscular Volume 91.5 fL (80-94); Mean Platelet Vol. 10.5 fl (6.2-12.0); Monocyte# 0.42 X10^3/uL; Monocyte% 7.7 % (0-10); NRBC Flagged by Analyzer 0 % (0-5); Neutrophil # 4.25 X10^3/uL (2.7-7.7); Neutrophil % 77.6 % (47-70); Platelet Count 139 K/mm3 (150-450); RBC Distribution Width CV 13.8 % (11.6-14.6); RBC Distribution Width SD 45.4 fl (35.1-43.9); Red Blood Count 3.42 M/mm3 (4.6-6.2); White Blood Count 5.5 K/mm3 (4.4-11.0)
[2023-12-31 11:56] LABS: Blood Gas Specimen Type VEN; O2 Delivery Device Room Air; SITE Not entered; VBG BASE EXCESS 5 mmol/L (-1.0-3.5); VBG Bicarbonate 30 mmol/L (22-26); VBG PO2 42 mmHg (25-40); VBG SO2 76 % (50-70); VBG TCO2 31 mmol/L (23-33); VBG pCO2 48.5 mmHg (41-51); VBG pH 7.39 (7.32-7.42)
[2023-12-31 12:00] LABS: Anion Gap 6 (5-15); BUN 18 mg/dL (7-18); BUN/Creat Ratio 21.9 RATIO (10-20); Calcium,Total 8.3 mg/dL (8.5-10.1); Chloride 106 mmol/L (98-107); Creatinine, Serum 0.82 mg/dL (0.70-1.30); EST Glomerular Filtration Rate 97 mL/min (>60); Est Glom Filt Rate - Afr Amer 118 mL/min (>60); Glucose 187 mg/dL (74-106); Potassium 3.8 mmol/L (3.5-5.1); Sodium Level 139 mmol/L (136-145); Troponin-I HS 21 pg/mL (3.0-78.0)
[2023-12-31 12:35] LABS: Mucous, Urine 0 SEEN /hpf (<or=2+); Red Blood Cells-Urine 0 SEEN /hpf (0-5); White Blood Cells 0 SEEN /hpf (0-5)
[2023-12-31 12:39] LABS: Color, Urine Yellow (Yellow); Glucose, Dipstick 100 mg/dl (Normal); Ketone-Dipstick Negative (Negative); Leukocyte Esterase-Dipstick Negative /ul (Negative); Nitrite-Dipstick Negative (Negative); Occult Blood-Urine Negative /ul (Negative); Protein-Dipstick 15 mg/dl (Negative); Specific Gravity, Urine 1.015 (1.002-1.030); Urine Bilirubin Dipstick Negative (Negative); Urine Clarity Sl. Cloudy (Clear); Urine Urobilinogen 4 mg/dl (Normal)
[2023-12-31 12:52] LABS: Squamous Epithelial Cells - UA 0-5 SEEN /hpf (0-5)
[2023-12-31 12:53] LABS: Bacteria 1+ /hpf (None Seen)
[2023-12-31] MEDS: Acetaminophen 325 MG Tablet 650 MG PO (14:18)
[2023-12-31] MEDS: 0.9% Normal Saline (1000mL) 1,000 ML 150 ML IV (14:18)
[2023-12-31 17:49] LABS: Bedside Glucose 152 mg/dL (74-106)
[2023-12-31] MEDS: Lidocaine 5% Patch 1 PATCH TOPICAL (18:03)
[2023-12-31] MEDS: Insulin Lispro 100 UNIT/ML INSULN.PEN SC ×2 (18:04→22:05)
[2023-12-31] MEDS: Ipratropium/Albuterol Sulfate 3 ML AMPUL.NEB INHALATION (20:09)
[2023-12-31] MEDS: Budesonide Respules 0.5 MG/2 ML AMPUL.NEB. INHALATION (20:09)
[2023-12-31] MEDS: Magnesium Chloride 64 MG Delay Rel.Tablet 128 MG PO (22:05)
[2023-12-31] MEDS: Atorvastatin Calcium 80 MG Tablet PO (22:05)
[2023-12-31] MEDS: Carvedilol 25 MG Tablet PO (22:05)
[2023-12-31] MEDS: levETIRAcetam 500 MG Tablet PO (22:13)
[2023-12-31] MEDS: Insulin Glargine-YFGN 100 UNIT/ML Pen 25 UNIT SC (22:14)
[2023-12-31] MEDS: Tamsulosin HCl 0.4 MG Capsule 0.8 MG PO (22:14)
[2023-12-31] MEDS: oxyCODONE 5 MG Tablet PO (22:18)
[2023-12-31] MEDS: Ranolazine 500 MG Tablet PO (22:19)
[2023-12-31] MEDS: Pantoprazole Sodium 40 MG Tablet PO (22:19)
[2024-01-01 00:11] LABS: Bedside Glucose 208 mg/dL (74-106)
[2024-01-01 02:00] VITALS: BP 152/70; PULSE 60; RESP 18; TEMP 36.6; O2SAT 93
[2024-01-01 03:00] VITALS: PULSE 60
[2024-01-01 03:26] VITALS: PULSE 65; RESP 18; O2SAT 95
[2024-01-01 04:46] VITALS: BMI 33.5
[2024-01-01 06:00] VITALS: BP 140/77; PULSE 62; RESP 18; TEMP 36.6; O2SAT 93
[2024-01-01 07:03] LABS: Bedside Glucose 149 mg/dL (74-106)
[2024-01-01 07:10] LABS: Hematocrit 32.4 % (40-54); Hemoglobin 10.8 g/dL (13.0-16.5); Mean Corp Hgb Conc 33.3 g/dL (32-36); Mean Corpuscular Hgb 30.9 pg (27.0-32.0); Mean Corpuscular Volume 92.6 fL (80-94); Mean Platelet Vol. 10.4 fl (6.2-12.0); Platelet Count 143 K/mm3 (150-450); RBC Distribution Width CV 13.9 % (11.6-14.6); RBC Distribution Width SD 46.4 fl (35.1-43.9); White Blood Count 4.6 K/mm3 (4.4-11.0)
[2024-01-01 07:32] VITALS: PULSE 63; RESP 20; O2SAT 93
[2024-01-01] MEDS: Budesonide Respules 0.5 MG/2 ML AMPUL.NEB. INHALATION (07:32)
[2024-01-01] MEDS: Ipratropium/Albuterol Sulfate 3 ML AMPUL.NEB INHALATION (07:32)
[2024-01-01 07:33] LABS: Anion Gap 5 (5-15); BUN 14 mg/dL (7-18); BUN/Creat Ratio 19.4 RATIO (10-20); Calcium,Total 8.4 mg/dL (8.5-10.1); Chloride 104 mmol/L (98-107); Creatinine, Serum 0.72 mg/dL (0.70-1.30); EST Glomerular Filtration Rate 113 mL/min (>60); Est Glom Filt Rate - Afr Amer 137 mL/min (>60); Estimated Creatinine Clearance 100.31 ml/min; Glucose 180 mg/dL (74-106); Potassium 3.6 mmol/L (3.5-5.1); Sodium Level 139 mmol/L (136-145)
[2024-01-01 10:00] VITALS: PULSE 65; RESP 17; TEMP 36.6; O2SAT 96
[2024-01-01] MEDS: Cholecalciferol (VIT D3) 25 MCG TABLET (1,000 UNITS) 100 MCG PO (10:14)
[2024-01-01] MEDS: levETIRAcetam 500 MG Tablet PO (10:15)
[2024-01-01] MEDS: Ranolazine 500 MG Tablet PO (10:15)
[2024-01-01] MEDS: Aspirin E.C. 81 MG Tablet PO (10:15)
[2024-01-01] MEDS: Pantoprazole Sodium 40 MG Tablet PO (10:15)
[2024-01-01] MEDS: Magnesium Chloride 64 MG Delay Rel.Tablet 128 MG PO (10:16)
[2024-01-01] MEDS: Clopidogrel Bisulfate 75 MG Tablet PO (10:16)
[2024-01-01] MEDS: Finasteride 5 MG Tablet PO (10:18)
[2024-01-01] MEDS: Escitalopram Oxalate 10 MG Tablet PO (10:18)
[2024-01-01] MEDS: Insulin Glargine-YFGN 100 UNIT/ML Pen 25 UNIT SC (10:21)
[2024-01-01] MEDS: Insulin Lispro 100 UNIT/ML INSULN.PEN SC (12:03)
[2024-01-01 12:29] LABS: Bedside Glucose 271 mg/dL (74-106)
[2024-01-01 14:16] VITALS: BMI 33.5
== END 2024-01-01 13:12 | disposition home or self-care (01) ==
LOC: ED 15:39 → PCU 16:06
PROVIDERS: Admitting Provider Hospitalist; Emergency Provider Emergency Medicine; Visit Provider Internal Medicine
DX: R53.1 Weakness (principal); I69.354 Hemiplegia and hemiparesis following cerebral infarction affecting left non-dominant side; J96.11 Chronic respiratory failure with hypoxia; I11.0 Hypertensive heart disease with heart failure; I50.22 Chronic systolic (congestive) heart failure; J44.9 Chronic obstructive pulmonary disease, unspecified; I49.5 Sick sinus syndrome; G40.909 Epilepsy, unspecified, not intractable, without status epilepticus; E11.65 Type 2 diabetes mellitus with hyperglycemia; Z79.4 Long term (current) use of insulin; F39 Unspecified mood [affective] disorder; E66.811 Obesity, class 1; Z68.34 Body mass index [BMI] 34.0-34.9, adult; K21.9 Gastro-esophageal reflux disease without esophagitis; E78.5 Hyperlipidemia, unspecified; R53.81 Other malaise; R55 Syncope and collapse; I25.10 Atherosclerotic heart disease of native coronary artery without angina pectoris; I69.322 Dysarthria following cerebral infarction; Z79.51 Long term (current) use of inhaled steroids; Z87.891 Personal history of nicotine dependence; G47.33 Obstructive sleep apnea (adult) (pediatric); Z79.85 Long-term (current) use of injectable non-insulin antidiabetic drugs; R47.81 Slurred speech; Z95.810 Presence of automatic (implantable) cardiac defibrillator; Z79.899 Other long term (current) drug therapy; Z79.02 Long term (current) use of antithrombotics/antiplatelets; Z79.82 Long term (current) use of aspirin; Z95.1 Presence of aortocoronary bypass graft; R47.01 Aphasia; Z99.81 Dependence on supplemental oxygen; F32.A Depression, unspecified; N40.1 Benign prostatic hyperplasia with lower urinary tract symptoms; N13.8 Other obstructive and reflux uropathy
CPT/HCPCS: 36415; 70450; 71045; 80048; 81001; 82803; 82962; 84484; 85025; 85027; 92610; 93005; 94002; 94003; 94640; 94762; 96360; 96361; 97162; 97166; 97802; 99221; 99285; J7030; A4216; G0378

== ENCOUNTER 2024-01-11 05:02 | Emergency (ER) | payer OTHER, SELFPAY ==
[2024-01-11 05:03] VITALS: BP 173/74; PULSE 64; RESP 18; TEMP 36.7; O2SAT 94; BMI 33.5
[2024-01-11 05:08] VITALS: BP 173/74; PULSE 64; RESP 18; TEMP 36.7; O2SAT 95
[2024-01-11 05:13] VITALS: BP 115/65; BP 140/74; BP 142/81; PULSE 61; PULSE 63; PULSE 71
--- NOTE | 2024-01-11 05:14 | EKG12_ITS ---
Test Reason : DIZZY Blood Pressure : */* mmHG Vent. Rate : 65 BPM Atrial Rate : 357 BPM P-R Int : * ms QRS Dur : 140 ms QT Int : 470 ms P-R-T Axes : * -71 61 degrees QTcB Int : 488 ms A- Ventricular-paced rhythm Biventricular pacemaker detected Abnormal ECG Confirmed by Flako Sheikh ([id number]), scientific editor NADINE FERRER ([id number]) on 01/12/2024 10:34:06 AM Referred By: Confirmed By: Flako Sheikh
[2024-01-11 05:31] LABS: Absolute Lymphocyte Count 1.07 X10^3/uL (0.83-4.51); Absolute Neutrophil Count 6.2 X10^3/uL (2.0-7.7); Basophil# 0.02 X10^3/uL; Basophil% 0.3 % (0-1); Eosinophil# 0.08 X10^3/uL; Hematocrit 36.6 % (40-54); Hemoglobin 12.4 g/dL (13.0-16.5); Lymphocyte # 1.07 X10^3/ul (0.83-4.51); Lymphocyte % 13.5 % (19-41); Mean Corp Hgb Conc 33.9 g/dL (32-36); Mean Corpuscular Hgb 30.6 pg (27.0-32.0); Mean Corpuscular Volume 90.4 fL (80-94); Mean Platelet Vol. 10.5 fl (6.2-12.0); Monocyte% 7.6 % (0-10); NRBC Flagged by Analyzer 0 % (0-5); Neutrophil # 6.15 X10^3/uL (2.7-7.7); Neutrophil % 77.3 % (47-70); Platelet Count 154 K/mm3 (150-450); RBC Distribution Width CV 13.8 % (11.6-14.6); RBC Distribution Width SD 45.1 fl (35.1-43.9); Red Blood Count 4.05 M/mm3 (4.6-6.2); White Blood Count 7.9 K/mm3 (4.4-11.0)
--- NOTE | 2024-01-11 05:35 | RAD_ITS ---
STUDY: X-RAY CHEST REASON FOR EXAM: Male, 73 years old patient with cough. TECHNIQUE: AP and lateral views of the chest. COMPARISON: Chest radiograph dated December 31, 2023. FINDINGS: Patient has a left-sided intracardiac pacemaker. Patient has had a sternotomy. Cardiac monitoring leads are present. Lungs are expanded. There are prominent vascular markings in both lungs. There is vague groundglass attenuation throughout the left lung. No obvious pleural effusions or pneumothorax is visualized. There is mild cardiac enlargement. Normal mediastinum and cata. There is prominence of the pulmonary hilar arteries and peripheral pulmonary arteries, consistent with pulmonary edema. There is atherosclerotic calcification of the aortic arch with tortuosity. There is demineralization of the osseous structures. There is mild wedge-shaped compression fracture at what may represent T9. There is deformity of the right clavicle secondary to old fracture. Patient has had open reduction internal fixation of multiple left-sided rib fractures with plate and screws. There is no demonstrated abnormality of the visualized soft tissue structures of the upper abdomen. RAD/Chest PA and Lateral IMPRESSION: 1. Cardiomegaly and pulmonary edema. 2. Vague increased attenuation of the left hemithorax may be secondary to pleural thickening. Electronically Signed: Yara Vasquez MD at 6:57 EST ,
[2024-01-11 05:47] LABS: ALB/GLOB Ratio 0.8 RATIO (0.9-2.4); AST(SGOT) 9 U/L (15-37); Alanine Aminotransfer ALT/SGPT 13 U/L (16-61); Albumin, Serum 3.4 g/dL (3.2-5.0); Alkaline Phosphatase 92 U/L (45-117); Anion Gap 7 (5-15); BUN 19 mg/dL (7-18); BUN/Creat Ratio 18.4 RATIO (10-20); Calcium,Total 8.7 mg/dL (8.5-10.1); Chloride 98 mmol/L (98-107); Creatinine, Serum 1.03 mg/dL (0.70-1.30); EST Glomerular Filtration Rate 75 mL/min (>60); Est Glom Filt Rate - Afr Amer 91 mL/min (>60); Estimated Creatinine Clearance 77.91 ml/min; Glucose 166 mg/dL (74-106); Potassium 3.5 mmol/L (3.5-5.1); Protein, Total 7.4 g/dL (6.4-8.2); Sodium Level 136 mmol/L (136-145)
[2024-01-11 05:48] LABS: Bedside Glucose 167 mg/dL (74-106)
--- NOTE | 2024-01-11 05:58 | EX.ED.DYSGE1 ---
HPI History of Present Illness Chief Complaint: Dizziness Detail of Chief Complaint: Dizziness and cough Informant: patient and spouse/S.O. Onset/Context/Timing Onset: Today (Dyspnea started approximately 1700 and the cough has gotten worse over the past couple of days) Context: Sudden Onset Timing: Continuous Quality: Patient defines as lightheadedness and then states dizziness. Location: Patient was at home sitting Current Severity: Mild Maximum Severity: Moderate Worsened by: Nothing regards to the cough or the lightheadedness/dizziness Relieved by: Nothing Associated Symptoms Associated Symptoms: No ocular symptoms. No nausea or vomiting Narrative Narrative: Patient is a 73-year-old male. He is a poor informant.He has a past medical history of chest pain of unknown etiology, anemia, poorly controlled diabetes, TIA, conversion reaction, sick sinus syndrome, pacemaker placement, diabetes, pulmonary embolus, obstructive sleep apnea on BiPAP. There is history of stroke. The 's major concern is cough which is keeping her up. She also stated that he needs to be admitted. Patient was recently admitted for strokelike symptoms. He underwent interrogation of his AICD per the teleneurologist recommendation. There is no evidence of ventricular tachycardia. Patient had repeat admissions for this. They recommended outpatient psychiatric evaluation. Prior similar symptoms: Yes Recent Illness/Hospitalization: Yes (Patient discharged 1115. Reason for admission with strokelike symptoms. H) [facility] Medical History ICD (implantable cardioverter-defibrillator) in place History of CAD (coronary artery disease) Lung nodule Obesity Chronic hypoxemic respiratory failure COPD (chronic obstructive pulmonary disease) Left-sided weakness Chest pain Syncope DNR (do not resuscitate) DNR (do not resuscitate) discussion Heart failure EKATERINA (obstructive sleep apnea) Anemia Chronic hyperglycemia History of TIAs Conversion reaction Sick sinus syndrome Pacemaker battery depletion Hemiparesis, left Former smoker On home oxygen therapy Pacemaker Congestive heart failure (CHF) Myocardial infarct Chest pain Pulmonary embolism Dysarthria BiPAP (biphasic positive airway pressure) dependence Wears hearing aid in both ears Diabetes Stroke/cerebrovascular accident COPD (chronic obstructive pulmonary disease) History of fractured rib CAD (coronary artery disease) Essential (primary) hypertension Atherosclerotic heart disease nondalton coronary artery w/angina pectoris EKATERINA (obstructive sleep apnea) Abnormal EKG DM type 2 (diabetes mellitus, type 2) Chronic respiratory failure Obesity Hyperlipidemia Home Medications ?Medication ?Instructions ?Recorded ?Last Taken ?Type aspirin 81 mg tablet,delayed 81 mg PO DAILY HEART HEALTH 06/11/18 12/30/23 History release atorvastatin 80 mg tablet 80 mg PO QHS CHOLESTEROL 06/11/18 12/30/23 History escitalopram oxalate 10 mg tablet 10 mg PO DAILY DEPRESSION 06/11/18 12/30/23 History finasteride 5 mg tablet 5 mg PO DAILY PROSTATE 06/11/18 12/30/23 History nitroglycerin 0.4 mg sublingual 0.4 mg sublingual Q5M PRN CHEST 07/22/18 01/17/20 Rx tablet PAIN #30 TABLETS pantoprazole 40 mg tablet,delayed 40 mg PO BID GERD 05/18/20 12/30/23 History release carvedilol 25 mg tablet 25 mg PO BID BLOOD PRESSURE 06/22/20 12/30/23 History ranolazine 500 mg tablet,extended 500 mg PO Q12H CHEST PAIN 06/22/20 12/30/23 History release,12 hr tamsulosin 0.4 mg capsule 0.4 mg PO QHS PROSTATE 08/10/20 12/30/23 History clopidogrel 75 mg tablet (Plavix) 75 mg PO DAILY BLOOD THINNER 01/07/21 12/30/23 History albuterol sulfate 2.5 mg/3 mL 2.5 mg inhalation Q6H PRN 12/12/21 08/11/23 History (0.083 %) solution for nebulization SHORTNESS OF BREATH/WHEEZING magnesium oxide 420 mg tablet 420 mg PO BID SUPPLEMENT 12/12/21 12/30/23 History multivitamin with minerals 1 tab PO DAILY SUPPLEMENT 12/12/21 12/30/23 History spironolactone 25 mg tablet 25 mg PO DAILY BLOOD PRESSURE 09/10/22 12/30/23 History (Aldactone) acetaminophen 325 mg tablet 650 mg PO 4X/DAY PRN PAIN 01/27/23 08/11/23 History (Tylenol) cholecalciferol (vitamin D3) 50 100 mcg PO DAILY SUPPLEMENT 03/04/23 12/30/23 History mcg (2,000 unit) capsule (D3-2000) levetiracetam 500 mg tablet 500 mg PO BID seizure 05/27/23 12/30/23 History furosemide 40 mg tablet 40 mg PO DAILY EDEMA 07/19/23 12/30/23 History fluticasone fur. 200 mcg-umeclid 1 inh inhalation DAILY #60 ea 12/14/23 12/30/23 Rx 62.5 mcg-vilant 25 mcg inhalat.powder (Trelegy Ellipta) guaifenesin 100 mg/5 mL oral 200 mg PO TID PRN cough 12/31/23 Unknown History liquid (Adult Tussin Chest Congestion) guaifenesin 600 mg tablet, 600 mg PO BID PRN cough 12/31/23 Unknown History extended release 12 hr insulin regular hum U-500 conc 500 130 unit subcut BID DIABETES 12/31/23 12/30/23 History unit/mL(3 mL) subcut pen (Humulin R U-500 (Conc) Insulin Kwikpen) semaglutide 0.25 mg or 0.5 mg (2 0.25 mg subcut FR 12/31/23 01/08/24 History mg/3 mL) subcutaneous pen injector (Ozempic) Allergy/AdvReac Type Severity Reaction Status Date / Time ezetimibe Allergy Unknown Verified 01/11/24 05:03 Fish Containing Products Allergy Unknown Verified 01/11/24 05:03 glyburide Allergy Unknown Verified 01/11/24 05:03 isosorbide Allergy PT UNSURE Verified 01/11/24 05:03 OF REACTION lisinopril Allergy Unknown Verified 01/11/24 05:03 metformin Allergy Nausea Verified 01/11/24 05:03 metoprolol Allergy Unknown Verified 01/11/24 05:03 simvastatin Allergy Unknown Verified 01/11/24 05:03 tramadol Allergy Other Verified 01/11/24 05:03 iron AdvReac Mild Vomiting Verified 01/11/24 05:03 gabapentin AdvReac Other Verified 01/11/24 05:03 Family History Father No problems noted. Surgical History History of cholecystectomy History of knee replacement procedure of left knee History of permanent cardiac pacemaker placement (01/14/21) H/O coronary artery bypass surgery History of coronary artery stent placement Social History household members: spouse Smoking Status: Former smoker details: Unknown substance use type: does not use ROS ROS ED Constitutional Constitutional ED: Denies chills, fever(s), subjective, sweats or weight loss Eyes Eyes: Denies blurry vision, change in vision or diplopia ENT ENT ED: Denies ear pain, rhinorrhea or sore throat Cardiovascular Cardiovascular: Denies chest pain or palpitations Respiratory/Chest Respiratory/Chest: Denies cough, dyspnea or dyspnea on exertion Gastrointestinal Gastrointestinal: Denies abdominal pain, nausea or vomiting Musculoskeletal Musculoskeletal: Denies arthralgias or myalgias Integumentary Denies rash Neurologic Neurologic: Denies headache(s), paresthesias or weakness Psychiatric Psychiatric: Reports anxiety and depression; Denies suicidal ideation Hematologic/Lymphatic Hematologic/Lymphatic: Reports systems reviewed and no addt'l complaints, except as documented EXAM Physical Exam Const Vital Signs: 01/11/24 05:03 01/11/24 05:08 01/11/24 05:13 Temperature 98.1 F 98.1 F Temperature Source Axillary Axillary Pulse Rate 64 64 Pulse Rate [Lying] 61 Pulse Rate [Sitting (for 1 minute prior to obtaining)] 63 Pulse Rate [Standing (for 1 minute prior to obtaining)] 71 Respiratory Rate 18 18 Blood Pressure 173/74 H 173/74 H Blood Pressure [Lying] 142/81 H Blood Pressure [Sitting (for 1 minute prior to obtaining)] 140/74 H Blood Pressure [Standing (for 1 minute prior to obtaining)] 115/65 Blood Pressure Mean 107 107 Blood Pressure Mean [Lying] 101 Blood Pressure Mean [Sitting (for 1 minute prior to obtaining)] 96 Blood Pressure Mean [Standing (for 1 minute prior to obtaining)] 81 Pulse Ox 94 95 Oxygen Delivery Method Room Air Room Air 01/11/24 06:08 01/11/24 07:00 Temperature 98.3 F 98.2 F Temperature Source Oral Oral Pulse Rate 61 62 Pulse Rate [Lying] Pulse Rate [Sitting (for 1 minute prior to obtaining)] Pulse Rate [Standing (for 1 minute prior to obtaining)] Respiratory Rate 24 H 22 H Blood Pressure 130/72 H 165/77 H Blood Pressure [Lying] Blood Pressure [Sitting (for 1 minute prior to obtaining)] Blood Pressure [Standing (for 1 minute prior to obtaining)] Blood Pressure Mean 91 106 Blood Pressure Mean [Lying] Blood Pressure Mean [Sitting (for 1 minute prior to obtaining)] Blood Pressure Mean [Standing (for 1 minute prior to obtaining)] Pulse Ox 93 94 Oxygen Delivery Method Room Air Room Air Pleasant elderly gentleman with a BMI of 33.6. Because he complains of lightheadedness orthostatic vitals were obtained and he has a significant drop in his blood pressure. There is no rise in his heart rate. This may be due to autonomic dysfunction secondary to his diabetes. Positive well nourished and well developed General Appearance ED: well developed and NAD; Negative for pallor HEENT Reports dry mucous membranes HEENT Narrative: Atraumatic normocephalic. Ears normal. He has bilateral hearing aids. Mouth ED: Yes dry mucous membranes Mouth: dry mucous membranes Eyes PERRL and EOMs intact bilaterally Eyes Narrative: There is no nystagmus with central gaze or looking to the right or left. There is no visual field cut. General Eye ED: Negative for pale conjunctiva or scleral icterus Neck no lymphadenopathy, supple and no JVD Chest Wall inspection of chest normal and palpation of chest normal Resp normal respiratory effort and clear to auscultation bilaterally Cardio regular rate, regular rhythm, S2 normal heart sound and no murmurs GI normal to inspection, nondistended, normoactive bowel sounds, non-tender, non-distended and hepatosplenomegaly Narrative: Negative Back/Spine Thoracic Spine / Upper Back: Negative for thoracic spinal tenderness Lumbar Spine / Lower Back: Negative for lumbar spinal tenderness Extremity normal to inspection General Extremety ED: Yes edema and tenderness General Extremity: edema Neuro oriented x3 and CN's II-XII intact bilaterally Sensorium / Orientation: alert Motor Exam: strength 5/5 throughout Psych Mood & Affect: Negative for depressed or anxious Skin no rashes or lesions noted, no wounds and skin turgor normal General Skin Exam: Negative for jaundice or pallor MDM MDM MDM Narrative Medical decision making narrative: Complaint of lightheadedness as his dizziness orthostatics were performed and are positive. In light of this we will have nurse administer fluid bolus. Because of his cough chest x-ray was obtained. CBC to assess for anemia and white count. Comprehensive metabolic panel was to assess for any endorgan dysfunction. Lab Data Attestation: I reviewed the patient's lab results. Lab results narrative: CBC reveals mild anemia, which is chronic. Competence of metabolic panel reveals glucose of 166 with a normal CO2 anion gap. BUN is slightly elevated at 19 with a creatinine of 1.03 and estimated GFR 70 Labs: Laboratory Results - last 24 hr 01/11/24 01/11/24 05:18 05:26 WBC 7.9 RBC 4.05 L Hgb 12.4 L Hct 36.6 L MCV 90.4 MCH 30.6 MCHC 33.9 RDW Std Deviation 45.1 H RDW Coeff of Cinda 13.8 Plt Count 154 MPV 10.5 Immature Gran % (Auto) 0.300 Neut % (Auto) 77.3 H Lymph % (Auto) 13.5 L [place] % (Auto) 7.6 Eos % (Auto) 1.0 Baso % (Auto) 0.3 Absolute Neuts (auto) 6.2 Absolute Lymphs (auto) 1.07 Nucleated RBC % 0 Sodium 136 Potassium 3.5 Chloride 98 Carbon Dioxide 31.0 Anion Gap 7 BUN 19 H Creatinine 1.03 Estim Creat Clear Calc 77.91 Est GFR (MDRD) Af Amer 91 Est GFR (MDRD) Non-Af 75 BUN/Creatinine Ratio 18.4 Glucose 166 H Lactic Acid 1.9 Calcium 8.7 Total Bilirubin 1.40 H AST 9 L ALT 13 L Alkaline Phosphatase 92 Total Protein 7.4 Albumin 3.4 Globulin 4.0 Albumin/Globulin Ratio 0.8 L POC Glucose 167 H Radiography Diagnostic Testing: Clinical Impression(s) from Imaging Studies Chest X-Ray 01/11/24 05:35 IMPRESSION: 1. Cardiomegaly and pulmonary edema. 2. Vague increased attenuation of the left hemithorax may be secondary to pleural thickening. Electronically Signed: Yara Vasquez MD at 6:57 EST Reading Location ID and State: [facility] / [place] , Service support , EKG Initial EKG: Attestation: I personally reviewed and interpreted this EKG as follows: Interpretation: Paced (Ventricular paced rhythm rate of 65. There is evidence that this is a biventricular paced rhythm. QRS duration 140 ms. QT duration 470 ms. [place] to the left.) Treatment and Re-Evaluation :: Review of prior records indicates patient's been admitted numerous times for strokelike symptoms. Since he has a negative Romberg test with eyes open and close, [id number] on right or left, negative eye askew test and hints test a CT was not obtained. He does have broad-based gait which is normal. He normally walks with a cane. Comments:: Suspect patient's dizziness orthostatic hypotension is due to autonomic dysfunction due to diabetes. Since there is no evidence of pneumonia and patient is presented with similar complaints on numerous occasion he will be discharged to home Per the charge nurse patient's gait is normally abnormal. Based on my prior experiences with the patient he is at his baseline. Discharge Plan Triage Chief Complaint: Dizziness ED Provider: Yadiel Guzman Dx/Rx/DC Orders Clinical Impression: Acute bronchitis, History of coronary artery disease, History of stroke, Autonomic orthostatic hypotension, Hx of type 1 diabetes mellitus, History of gastroesophageal reflux (GERD) Instructions: ED Bronchitis, No Antibiotic (Adult), ED Hypotension, Orthostatic Prescriptions: No Action clopidogrel [Plavix] 75 mg tablet 75 mg PO DAILY levetiracetam 500 mg tablet 500 mg PO BID Trelegy Ellipta 200-62.5-25 mcg blister with device 1 inh inhalation DAILY Qty: 60 6RF atorvastatin 80 MG tablet 80 mg PO QHS aspirin 81 MG tablet 81 mg PO DAILY finasteride 5 MG tablet 5 mg PO DAILY escitalopram oxalate 10 MG tablet 10 mg PO DAILY nitroglycerin 0.4 MG tablet, sublingual 0.4 mg sublingual Q5M PRN (Reason: CHEST PAIN ) Qty: 30 0RF pantoprazole 40 MG tablet 40 mg PO BID carvedilol 25 MG tablet 25 mg PO BID ranolazine 500 mg Tablet Extended Release 12 Hr 500 mg PO Q12H tamsulosin 0.4 MG capsule 0.4 mg PO QHS magnesium oxide 420 mg Tablet 420 mg PO BID albuterol sulfate 2.5 mg /3 mL (0.083 %) Solution For Nebulization 2.5 mg INHALATION Q6H PRN (Reason: SHORTNESS OF BREATH/WHEEZING ) multivitamin with minerals Tablet 1 tab PO DAILY spironolactone [Aldactone] 25 mg tablet 25 mg PO DAILY acetaminophen [Tylenol] 325 MG tablet 650 mg PO 4X/DAY PRN (Reason: PAIN ) cholecalciferol (vitamin D3) [D3-1999] 50 mcg (2,000 unit) capsule 100 mcg PO DAILY furosemide 40 mg Tablet 40 mg PO DAILY guaifenesin [Adult Tussin Chest Congestion] 100 mg/5 mL liquid 200 mg PO TID PRN (Reason: cough) guaifenesin 600 mg tablet extended release 12hr 600 mg PO BID PRN (Reason: cough) Ozempic 0.25 mg or 0.5 mg (2 mg/3 mL) pen injector 0.25 mg subcut FR Patient Comments: FIRST DOSE 12/25/23 Rx Instructions: for 4 weeks Humulin R U-500 (Conc) Kwikpen 500 unit/mL (3 mL) insulin pen 130 unit subcut BID Rx Instructions: 130 units with breakfast; 130 units with dinner [facility] Provider[facility] Referrals: [facility] [Primary Care Provider] - 5-7 Days Print Language: [place] Disposition Disposition: Home, Self Care
[2024-01-11 06:00] LABS: Lactic Acid 1.9 mmol/L (0.4-1.9)
[2024-01-11 06:08] VITALS: BP 130/72; PULSE 61; RESP 24; TEMP 36.8; O2SAT 93
[2024-01-11] MEDS: 0.9% Normal Saline (1000mL) 1,000 ML 1000 ML IV (06:28)
[2024-01-11 07:00] VITALS: BP 165/77; PULSE 62; RESP 22; TEMP 36.8; O2SAT 94
[2024-01-11 07:17] VITALS: BP 165/72; PULSE 91; RESP 19; TEMP 36.7; O2SAT 97
== END 2024-01-11 07:27 | disposition home or self-care (01) ==
PROVIDERS: Emergency Provider Emergency Medicine; Visit Provider Emergency Medicine
DX: J20.9 Acute bronchitis, unspecified (principal); I11.0 Hypertensive heart disease with heart failure; I50.9 Heart failure, unspecified; J44.0 Chronic obstructive pulmonary disease with (acute) lower respiratory infection; I25.10 Atherosclerotic heart disease of native coronary artery without angina pectoris; Z87.891 Personal history of nicotine dependence; Z95.0 Presence of cardiac pacemaker; E78.5 Hyperlipidemia, unspecified; D64.9 Anemia, unspecified; R07.9 Chest pain, unspecified; Z86.73 Personal history of transient ischemic attack (TIA), and cerebral infarction without residual deficits; Z86.711 Personal history of pulmonary embolism; Z79.85 Long-term (current) use of injectable non-insulin antidiabetic drugs; I95.1 Orthostatic hypotension
CPT/HCPCS: 71046; 80053; 82962; 83605; 85025; 93005; 96360; 99285; J7030; A4216

== ENCOUNTER 2024-02-14 11:11 | Emergency (ER) | payer OTHER, SELFPAY ==
[2024-02-14] VITALS (7 sets, daily range): BP systolic 127–149; BP diastolic 59–85; PULSE 62–66; RESP 16–20; TEMP 36–37.2; O2SAT 94–96
--- NOTE | 2024-02-14 11:17 | ED.VIS.DYS ---
HPI History of Present Illness Chief Complaint: Shortness of Breath [facility] Medical History ICD (implantable cardioverter-defibrillator) in place History of CAD (coronary artery disease) Lung nodule Obesity Chronic hypoxemic respiratory failure COPD (chronic obstructive pulmonary disease) Left-sided weakness Chest pain Syncope DNR (do not resuscitate) DNR (do not resuscitate) discussion Heart failure EKATERINA (obstructive sleep apnea) Anemia Chronic hyperglycemia History of TIAs Conversion reaction Sick sinus syndrome Pacemaker battery depletion Hemiparesis, left Former smoker On home oxygen therapy Pacemaker Congestive heart failure (CHF) Myocardial infarct Chest pain Pulmonary embolism Dysarthria BiPAP (biphasic positive airway pressure) dependence Wears hearing aid in both ears Diabetes Stroke/cerebrovascular accident COPD (chronic obstructive pulmonary disease) History of fractured rib CAD (coronary artery disease) Essential (primary) hypertension Atherosclerotic heart disease [place] coronary artery w/angina pectoris EKATERINA (obstructive sleep apnea) Abnormal EKG DM type 2 (diabetes mellitus, type 2) Chronic respiratory failure Obesity Hyperlipidemia Home Medications ?Medication ?Instructions ?Recorded ?Last Taken ?Type aspirin 81 mg tablet,delayed 81 mg PO DAILY HEART HEALTH 06/11/18 12/30/23 History release atorvastatin 80 mg tablet 80 mg PO QHS CHOLESTEROL 06/11/18 12/30/23 History escitalopram oxalate 10 mg tablet 10 mg PO DAILY DEPRESSION 06/11/18 12/30/23 History finasteride 5 mg tablet 5 mg PO DAILY PROSTATE 06/11/18 12/30/23 History nitroglycerin 0.4 mg sublingual 0.4 mg sublingual Q5M PRN CHEST 07/22/18 01/17/20 Rx tablet PAIN #30 TABLETS pantoprazole 40 mg tablet,delayed 40 mg PO BID GERD 05/18/20 12/30/23 History release carvedilol 25 mg tablet 25 mg PO BID BLOOD PRESSURE 06/22/20 12/30/23 History ranolazine 500 mg tablet,extended 500 mg PO Q12H CHEST PAIN 06/22/20 12/30/23 History release,12 hr tamsulosin 0.4 mg capsule 0.4 mg PO QHS PROSTATE 08/10/20 12/30/23 History clopidogrel 75 mg tablet (Plavix) 75 mg PO DAILY BLOOD THINNER 01/07/21 12/30/23 History albuterol sulfate 2.5 mg/3 mL 2.5 mg inhalation Q6H PRN 12/12/21 08/11/23 History (0.083 %) solution for nebulization SHORTNESS OF BREATH/WHEEZING magnesium oxide 420 mg tablet 420 mg PO BID SUPPLEMENT 12/12/21 12/30/23 History multivitamin with minerals 1 tab PO DAILY SUPPLEMENT 12/12/21 12/30/23 History spironolactone 25 mg tablet 25 mg PO DAILY BLOOD PRESSURE 09/10/22 12/30/23 History (Aldactone) acetaminophen 325 mg tablet 650 mg PO 4X/DAY PRN PAIN 01/27/23 08/11/23 History (Tylenol) cholecalciferol (vitamin D3) 50 100 mcg PO DAILY SUPPLEMENT 03/04/23 12/30/23 History mcg (2,000 unit) capsule (D3-2000) levetiracetam 500 mg tablet 500 mg PO BID seizure 05/27/23 12/30/23 History furosemide 40 mg tablet 40 mg PO DAILY EDEMA 07/19/23 12/30/23 History fluticasone fur. 200 mcg-umeclid 1 inh inhalation DAILY #60 ea 12/14/23 12/30/23 Rx 62.5 mcg-vilant 25 mcg inhalat.powder (Trelegy Ellipta) guaifenesin 100 mg/5 mL oral 200 mg PO TID PRN cough 12/31/23 Unknown History liquid (Adult Tussin Chest Congestion) guaifenesin 600 mg tablet, 600 mg PO BID PRN cough 12/31/23 Unknown History extended release 12 hr insulin regular hum U-500 conc 500 130 unit subcut BID DIABETES 12/31/23 12/30/23 History unit/mL(3 mL) subcut pen (Humulin R U-500 (Conc) Insulin Kwikpen) semaglutide 0.25 mg or 0.5 mg (2 0.25 mg subcut FR 12/31/23 01/08/24 History mg/3 mL) subcutaneous pen injector (Ozempic) codeine sulfate 15 mg tablet 15 mg PO Q6H PRN cough 2 days #8 02/14/24 Unknown Rx tabs Allergy/AdvReac Type Severity Reaction Status Date / Time ezetimibe Allergy Unknown Verified 02/14/24 11:15 Fish Containing Products Allergy Unknown Verified 02/14/24 11:15 glyburide Allergy Unknown Verified 02/14/24 11:15 isosorbide Allergy PT UNSURE Verified 02/14/24 11:15 OF REACTION lisinopril Allergy Unknown Verified 02/14/24 11:15 metformin Allergy Nausea Verified 02/14/24 11:15 metoprolol Allergy Unknown Verified 02/14/24 11:15 simvastatin Allergy Unknown Verified 02/14/24 11:15 tramadol Allergy Other Verified 02/14/24 11:15 iron AdvReac Mild Vomiting Verified 02/14/24 11:15 gabapentin AdvReac Other Verified 02/14/24 11:15 Family History Father No problems noted. Surgical History History of cholecystectomy History of knee replacement procedure of left knee History of permanent cardiac pacemaker placement (01/14/21) H/O coronary artery bypass surgery History of coronary artery stent placement Social History household members: spouse Smoking Status: Former smoker details: Unknown substance use type: does not use EXAM Physical Exam Const Vital Signs: 02/14/24 11:12 02/14/24 11:15 02/14/24 11:34 Temperature 96.8 F L 96.8 F L Temperature Source Temporal Temporal Pulse Rate 65 65 Respiratory Rate 20 H 20 H Respiratory Effort Respiratory Pattern Blood Pressure 127/66 H 127/66 H Blood Pressure Mean 86 86 Pulse Ox 96 96 Oxygen Delivery Method Room Air Room Air 02/14/24 11:41 02/14/24 11:41 02/14/24 12:15 Temperature 98.5 F Temperature Source Temporal Pulse Rate 66 Respiratory Rate 18 Respiratory Effort Short of Breath Respiratory Pattern Normal Blood Pressure 149/66 H Blood Pressure Mean 93 Pulse Ox 94 Oxygen Delivery Method Room Air Room Air 02/14/24 13:07 02/14/24 13:43 Temperature 98.9 F Temperature Source Pulse Rate 65 62 Respiratory Rate 16 19 H Respiratory Effort Respiratory Pattern Blood Pressure 136/59 H 135/85 H Blood Pressure Mean 84 101 Pulse Ox 95 96 Oxygen Delivery Method Room Air MDM MDM MDM Narrative Medical decision making narrative: HISTORY OF PRESENT ILLNESS: 73-year-old male presents with cough, congestion and shortness of breath. He notes this began several days ago. Notes sick contact, notes his with similar symptoms of congestion over the last week. Denies chest pain but does note chest tightness with cough. Notes no hematemesis, hematuria or any other bleeding diathesis. Denies leg swelling. Denies unilateral leg swelling. The patient denies recent surgery in the last 4 weeks or immobilization in the last 3 days, denies previous diagnosis of DVT (endorses remote history of PE), hemoptysis, unilateral leg swelling or malignancy with treatment the last 6 months or palliative. No estrogen use noted. Denies fever. Denies vomiting. REVIEW OF SYSTEMS: Pertinent positives: Cough, congestion and shortness of breath Pertinent negatives: Chest pain, leg swelling PHYSICAL EXAM: Nursing triage notes reviewed, Vital signs reviewed Constitutional: please see mdm HENT: MMM Eyes: Pupils equal round and reactive to light, Extraocular muscles intact Neck: No stridor, no JVD, full neck ROM Lungs: Clear to auscultation, No wheezing or rales. No increased work of breathing, no conversational dyspnea, no accessory muscle use, no nasal flaring. No respiratory distress noted Heart: Regular rate and rhythm, No murmurs, No rubs and No gallops, 2+ distal pulses (radial, femoral, posterior tibial) in all extremities Abdomen: Soft, there is no tenderness, rigidity, rebound or guarding, no obvious peritoneal signs, no palpable pulsatile abdominal masses, no auscultated abdominal bruit : No CVAT Extremities: No edema Neuro: No new focal neurological deficits, cranial nerves II through XII intact, 5/5 strength in all present extremities. Intact sensation to light touch in all present extremities, 2+ reflexes bilateral patella tendons. Skin: No rash or lesions noted MEDICAL DECISION MAKING: Chief Complaint: Cough, congestion, shortness of breath External records reviewed: Reviewed prior allergies, medications Factors affecting care: Status post ICD, COPD, sick sinus syndrome, CHF, PE, hyperlipidemia Social determinants of health: none History obtained from others: The patient's Consults: none [facility] Narrative: The patient was initially hemodynamically stable, afebrile and nontoxic-appearing. Exam with clear lungs. The patient had no signs of respiratory distress. No conversational dyspnea. No leg swelling or stigmata of VTE. I considered the following differential diagnosis: Pneumonia, COVID, RSV, flu, other viral illness, anemia, electro disturbance, ACS, arrhythmia, PE I considered PE however the patient low risk Wells score. As such she is not a candidate for CTA at this time or D-dimer. ALL IMAGES (IF OBTAINED) HAVE BEEN PERSONALLY REVIEWED AND INTERPRETED BY MYSELF. CBC with leukocytosis, mild anemia, no thrombocytopenia BMP without evidence of significant electrolyte abnormalities, no anion gap, no acute kidney injury. High-sensitivity troponin is negative, no evidence of myocardial ischemia I have personally reviewed the patient's chest x-ray. Noted haziness to the left lung flores appears chronic based on prior x-ray reads. No obvious focal consolidation no signs of volume overload. COVID/Flu/RSV negative Patient was ambulated here in the emergency department out hypoxia. He saturating 93%. This is appropriate with COPD. The synthesis of the patient's history, physical exam, labs, images suggest no acute life-limiting etiology. I suspect the patient suffered from a viral upper respiratory tract infection given his sick contact and his . Will give Tylenol and ibuprofen instructions. Will give strict return precautions. The patient and/or family, caregivers express understanding. The patient and/or family, caregivers agrees with the plan. Shared decision making: I will have a discussion with the patient and or visitors regarding risk/benefits of further testing or admission. They will be made aware of of the risk/benefits inherent in this decision they will be given the opportunity to voice understanding. Total critical care time today provided was at least 0 minutes. This excludes separately billable procedures. Critical care time (if documented) is secondary to the patient having high probability of clinically significant/life threatening deterioration in the patient's condition which required my urgent intervention. Impression: 1. Dyspnea 2. Viral URI Dispo: Discharge home This note was generated with [employer] dictation software. It may contain incorrect words, spelling, and punctuation that were not noted in review of the chart prior to signing. Lab Data Labs: Laboratory Results - last 24 hr 02/14/24 11:36 WBC 8.3 RBC 4.09 L Hgb 12.6 L Hct 37.2 L MCV 91.0 MCH 30.8 MCHC 33.9 RDW Std Deviation 43.8 RDW Coeff of Cinda 13.6 Plt Count 157 MPV 10.3 Immature Gran % (Auto) 0.400 Neut % (Auto) 77.0 H Lymph % (Auto) 13.6 L Carver % (Auto) 7.1 Eos % (Auto) 1.7 Baso % (Auto) 0.2 Absolute Neuts (auto) 6.4 Absolute Lymphs (auto) 1.13 Nucleated RBC % 0 Sodium 136 Potassium 4.0 Chloride 103 Carbon Dioxide 25.0 Anion Gap 8 BUN 21 H Creatinine 0.83 Est GFR (MDRD) Af Amer 116 Est GFR (MDRD) Non-Af 96 BUN/Creatinine Ratio 25.2 H Glucose 228 H Calcium 8.8 Troponin I High Sens 23 Radiography Diagnostic Testing: Clinical Impression(s) from Imaging Studies Chest X-Ray 02/14/24 11:45 IMPRESSION: Unchanged mild hazy opacification of the left lung. Electronically Signed: Michelle Tomlinson MD at 12:47 EST Reading Location ID and State: [facility] / [place] Tel , Service support , Discharge Plan Triage Chief Complaint: Shortness of Breath Other Complaint: Cold Sx ED Provider: Erick Frankel Dx/Rx/DC Orders Instructions: ED URI, Viral, No Abx (Adult) Prescriptions: New codeine sulfate 15 mg tablet 15 mg PO Q6H PRN (Reason: cough) 2 Days Qty: 8 0RF No Action clopidogrel [Plavix] 75 mg tablet 75 mg PO DAILY levetiracetam 500 mg tablet 500 mg PO BID Trelegy Ellipta 200-62.5-25 mcg blister with device 1 inh inhalation DAILY Qty: 60 6RF atorvastatin 80 MG tablet 80 mg PO QHS aspirin 81 MG tablet 81 mg PO DAILY finasteride 5 MG tablet 5 mg PO DAILY escitalopram oxalate 10 MG tablet 10 mg PO DAILY nitroglycerin 0.4 MG tablet, sublingual 0.4 mg sublingual Q5M PRN (Reason: CHEST PAIN ) Qty: 30 0RF pantoprazole 40 MG tablet 40 mg PO BID carvedilol 25 MG tablet 25 mg PO BID ranolazine 500 mg Tablet Extended Release 12 Hr 500 mg PO Q12H tamsulosin 0.4 MG capsule 0.4 mg PO QHS magnesium oxide 420 mg Tablet 420 mg PO BID albuterol sulfate 2.5 mg /3 mL (0.083 %) Solution For Nebulization 2.5 mg INHALATION Q6H PRN (Reason: SHORTNESS OF BREATH/WHEEZING ) multivitamin with minerals Tablet 1 tab PO DAILY spironolactone [Aldactone] 25 mg tablet 25 mg PO DAILY acetaminophen [Tylenol] 325 MG tablet 650 mg PO 4X/DAY PRN (Reason: PAIN ) cholecalciferol (vitamin D3) [D3-2000] 50 mcg (2,000 unit) capsule 100 mcg PO DAILY furosemide 40 mg Tablet 40 mg PO DAILY guaifenesin [Adult Tussin Chest Congestion] 100 mg/5 mL liquid 200 mg PO TID PRN (Reason: cough) guaifenesin 600 mg tablet extended release 12hr 600 mg PO BID PRN (Reason: cough) Ozempic 0.25 mg or 0.5 mg (2 mg/3 mL) pen injector 0.25 mg subcut FR Patient Comments: FIRST DOSE 12/25/23 Rx Instructions: for 4 weeks Humulin R U-500 (Conc) Kwikpen 500 unit/mL (3 mL) insulin pen 130 unit subcut BID Rx Instructions: 130 units with breakfast; 130 units with dinner Primary Care Provider: [facility] Referrals: Denis Segura MD [Med Staff - Active Staff] - [facility] [Primary Care Provider] - Activity Restrictions/Additional Instructions: Thank you for trusting us with your care today! Your labs, images, clinical evaluation reassuring. You likely some from a viral upper respiratory tract infection. No sign of bacterial pneumonia. Viral respiratory tract infection are treated with time, Tylenol ibuprofen and plenty of oral fluids. Please take Tylenol (2 pills, 650 mg), ibuprofen (2 pills, 400 mg) every 6 hours as needed for pain and fever control. Please return to the emergency department if your symptoms change or worsen. Please follow with your primary care physician for further outpatient evaluation and management. Print Language: Jamaican Disposition Disposition: Home, Self Care Discharge Date/Time: 02/14/24 14:00
--- NOTE | 2024-02-14 11:31 | EKG12_ITS ---
Test Reason : Blood Pressure : */* mmHG Vent. Rate : 63 BPM Atrial Rate : 61 BPM P-R Int : * ms QRS Dur : 138 ms QT Int : 504 ms P-R-T Axes : * 251 108 degrees QTcB Int : 515 ms Ventricular-paced rhythm Biventricular pacemaker detected Abnormal ECG Confirmed by PADILLA GUALLPA, CALI ([id number]), primer expeditor and drier NADINE FERRER ([id number]) on 02/15/2024 10:48:48 AM Referred By: ADALI Confirmed By: CALI CAUSEY MD
[2024-02-14 11:44] LABS: Absolute Lymphocyte Count 1.13 X10^3/uL (0.83-4.51); Absolute Neutrophil Count 6.4 X10^3/uL (2.0-7.7); Basophil# 0.02 X10^3/uL; Basophil% 0.2 % (0-1); Eosinophil# 0.14 X10^3/uL; Eosinophils% 1.7 % (0-5); Hematocrit 37.2 % (40-54); Hemoglobin 12.6 g/dL (13.0-16.5); Lymphocyte # 1.13 X10^3/ul (0.83-4.51); Lymphocyte % 13.6 % (19-41); Mean Corp Hgb Conc 33.9 g/dL (32-36); Mean Corpuscular Hgb 30.8 pg (27.0-32.0); Mean Platelet Vol. 10.3 fl (6.2-12.0); Monocyte# 0.59 X10^3/uL; Monocyte% 7.1 % (0-10); NRBC Flagged by Analyzer 0 % (0-5); Neutrophil # 6.42 X10^3/uL (2.7-7.7); Platelet Count 157 K/mm3 (150-450); RBC Distribution Width CV 13.6 % (11.6-14.6); RBC Distribution Width SD 43.8 fl (35.1-43.9); Red Blood Count 4.09 M/mm3 (4.6-6.2); White Blood Count 8.3 K/mm3 (4.4-11.0)
--- NOTE | 2024-02-14 11:45 | RAD_ITS ---
HISTORY: cough, SOB. TECHNIQUE: XR Chest 1 View. COMPARISON: 01/11/2024. FINDINGS: CARDIOMEDIASTINAL BORDERS: Mild cardiomegaly with pacemaker again seen. Mediastinal contour also unchanged with midline sternotomy and mediastinal clips. LUNGS: Mild hazy opacification of the left lung unchanged. PLEURA: No pleural effusion or pneumothorax seen. OSSEOUS STRUCTURES: Old fracture of the right mid clavicle. Degenerative change. Chronic left rib fractures with cortical plate fixation. RAD/Chest 1 View (Portable) IMPRESSION: Unchanged mild hazy opacification of the left lung. Electronically Signed: Michelle Tomlinson MD at 12:47 EST ,
[2024-02-14 12:03] LABS: Anion Gap 8 (5-15); BUN 21 mg/dL (7-18); BUN/Creat Ratio 25.2 RATIO (10-20); Calcium,Total 8.8 mg/dL (8.5-10.1); Chloride 103 mmol/L (98-107); Creatinine, Serum 0.83 mg/dL (0.70-1.30); EST Glomerular Filtration Rate 96 mL/min (>60); Est Glom Filt Rate - Afr Amer 116 mL/min (>60); Glucose 228 mg/dL (74-106); Sodium Level 136 mmol/L (136-145); Troponin-I HS 23 pg/mL (3.0-78.0)
[2024-02-14] MEDS: Acetaminophen/Codeine #3 Tablet 1 TABLET PO (12:48)
== END 2024-02-14 14:00 | disposition home or self-care (01) ==
PROVIDERS: Emergency Provider Emergency Medicine; Visit Provider Emergency Medicine
DX: J06.9 Acute upper respiratory infection, unspecified (principal); I11.0 Hypertensive heart disease with heart failure; I50.9 Heart failure, unspecified; J44.9 Chronic obstructive pulmonary disease, unspecified; I49.5 Sick sinus syndrome; E11.9 Type 2 diabetes mellitus without complications; E78.5 Hyperlipidemia, unspecified; I25.10 Atherosclerotic heart disease of native coronary artery without angina pectoris; Z87.891 Personal history of nicotine dependence; R06.00 Dyspnea, unspecified; Z86.718 Personal history of other venous thrombosis and embolism
CPT/HCPCS: 71045; 80048; 84484; 85025; 87631; 93005; 99284; A4216

== ENCOUNTER 2024-02-22 14:59 | Emergency (ER) | payer OTHER, SELFPAY ==
[2024-02-22 15:00] VITALS: BP 126/81; PULSE 81; RESP 18; TEMP 36.6; O2SAT 98
--- NOTE | 2024-02-22 15:10 | RAD_ITS ---
INDICATION: shortness of breath EXAMINATION/TECHNIQUE: X-RAY - XR Chest 2 Views COMPARISON: 01/11/2024 FINDINGS: LINES/DEVICES: Stable transvenous pacemaker. LUNGS: No consolidation, edema or effusion. No pneumothorax. MEDIASTINUM AND CARDIOVASCULAR STRUCTURES: Cardiac silhouette stable within normal limits with stable CABG changes. BONES AND SOFT TISSUES: No acute changes. Stable hardware from multiple left rib fixations. RAD/Chest PA and Lateral IMPRESSION: No radiographic evidence of acute cardiopulmonary disease. Electronically Signed: Angelo Webster MD at 15:38 EST ,
--- NOTE | 2024-02-22 19:03 | EKG12_ITS ---
Test Reason : DYSRHYTHMIA Blood Pressure : */* mmHG Vent. Rate : 70 BPM Atrial Rate : 70 BPM P-R Int : * ms QRS Dur : 142 ms QT Int : 478 ms P-R-T Axes : * 244 99 degrees QTcB Int : 516 ms Ventricular-paced rhythm Normal sinus rhythm with PVC's Biventricular pacemaker detected Abnormal ECG Confirmed by Flako Sheikh ([id number]), editorial clerk NADINE FERRER ([id number]) on 02/23/2024 1:28:43 PM Referred By: Confirmed By: Flako Sheikh
--- NOTE | 2024-02-22 19:04 | EDS_ITS ---
HPI HPI - URI History of Present Illness Chief Complaint: Shortness of Breath Informant: patient and spouse/S.O. Narrative Narrative: 73-year-old male with history of CAD, COPD, presenting with about 2 weeks worth of a productive cough, some occasional fevers, vomiting, and diarrhea to the point where he is having trouble keeping things down. He denies dyspnea. He is having some chest/rib cage soreness from all the coughing, but no symptoms of angina/chest pain. He states when he lies down he has a lot of congestion and it makes him cough a lot, disrupting his sleep which is the main problem. He was seen here about a week ago, he had a negative workup including COVID/influenza/RSV. He went to urgent care yesterday, they diagnosed him with pneumonia, he had no chest x-ray, they put him on doxycycline and amoxicillin according to the . After 1 day of taking these, he is no better and presents here. ROS ROS ED Constitutional Constitutional ED: Reports fever(s) and subjective; Denies chills Eyes Eyes: Denies change in vision or diplopia ENT ENT ED: Denies rhinorrhea or sore throat Cardiovascular Cardiovascular: Denies chest pain, orthopnea or palpitations Respiratory/Chest Respiratory/Chest: Reports cough and sputum; Denies dyspnea or orthopnea Gastrointestinal Gastrointestinal: Reports diarrhea, nausea and vomiting; Denies abdominal pain, hematemesis or hematochezia Genitourinary Genitourinary ED: Denies dysuria or hematuria Musculoskeletal Musculoskeletal: Denies back pain or neck pain Integumentary Denies abscess or rash Neurologic Neurologic: Denies headache(s), paresthesias or weakness Psychiatric Psychiatric: Denies anxiety or suicidal thoughts [facility] Medical History ICD (implantable cardioverter-defibrillator) in place History of CAD (coronary artery disease) Lung nodule Obesity Chronic hypoxemic respiratory failure COPD (chronic obstructive pulmonary disease) Left-sided weakness Chest pain Syncope DNR (do not resuscitate) DNR (do not resuscitate) discussion Heart failure EKATERINA (obstructive sleep apnea) Anemia Chronic hyperglycemia History of TIAs Conversion reaction Sick sinus syndrome Pacemaker battery depletion Hemiparesis, left Former smoker On home oxygen therapy Pacemaker Congestive heart failure (CHF) Myocardial infarct Chest pain Pulmonary embolism Dysarthria BiPAP (biphasic positive airway pressure) dependence Wears hearing aid in both ears Diabetes Stroke/cerebrovascular accident COPD (chronic obstructive pulmonary disease) History of fractured rib CAD (coronary artery disease) Essential (primary) hypertension Atherosclerotic heart disease pala coronary artery w/angina pectoris EKATERINA (obstructive sleep apnea) Abnormal EKG DM type 2 (diabetes mellitus, type 2) Chronic respiratory failure Obesity Hyperlipidemia Home Medications ?Medication ?Instructions ?Recorded ?Last Taken ?Type aspirin 81 mg tablet,delayed 81 mg PO DAILY HEART HEALTH 06/11/18 12/30/23 History release atorvastatin 80 mg tablet 80 mg PO QHS CHOLESTEROL 06/11/18 12/30/23 History escitalopram oxalate 10 mg tablet 10 mg PO DAILY DEPRESSION 06/11/18 12/30/23 History finasteride 5 mg tablet 5 mg PO DAILY PROSTATE 06/11/18 12/30/23 History nitroglycerin 0.4 mg sublingual 0.4 mg sublingual Q5M PRN CHEST 07/22/18 01/17/20 Rx tablet PAIN #30 TABLETS pantoprazole 40 mg tablet,delayed 40 mg PO BID GERD 05/18/20 12/30/23 History release carvedilol 25 mg tablet 25 mg PO BID BLOOD PRESSURE 06/22/20 12/30/23 History ranolazine 500 mg tablet,extended 500 mg PO Q12H CHEST PAIN 06/22/20 12/30/23 History release,12 hr tamsulosin 0.4 mg capsule 0.4 mg PO QHS PROSTATE 08/10/20 12/30/23 History clopidogrel 75 mg tablet (Plavix) 75 mg PO DAILY BLOOD THINNER 01/07/21 12/30/23 History albuterol sulfate 2.5 mg/3 mL 2.5 mg inhalation Q6H PRN 12/12/21 08/11/23 History (0.083 %) solution for nebulization SHORTNESS OF BREATH/WHEEZING magnesium oxide 420 mg tablet 420 mg PO BID SUPPLEMENT 12/12/21 12/30/23 History multivitamin with minerals 1 tab PO DAILY SUPPLEMENT 12/12/21 12/30/23 History spironolactone 25 mg tablet 25 mg PO DAILY BLOOD PRESSURE 09/10/22 12/30/23 History (Aldactone) acetaminophen 325 mg tablet 650 mg PO 4X/DAY PRN PAIN 01/27/23 08/11/23 History (Tylenol) cholecalciferol (vitamin D3) 50 100 mcg PO DAILY SUPPLEMENT 03/04/23 12/30/23 History mcg (2,000 unit) capsule (D3-1999) levetiracetam 500 mg tablet 500 mg PO BID seizure 05/27/23 12/30/23 History furosemide 40 mg tablet 40 mg PO DAILY EDEMA 07/19/23 12/30/23 History fluticasone fur. 200 mcg-umeclid 1 inh inhalation DAILY #60 ea 12/14/23 12/30/23 Rx 62.5 mcg-vilant 25 mcg inhalat.powder (Trelegy Ellipta) guaifenesin 100 mg/5 mL oral 200 mg PO TID PRN cough 12/31/23 Unknown History liquid (Adult Tussin Chest Congestion) guaifenesin 600 mg tablet, 600 mg PO BID PRN cough 12/31/23 Unknown History extended release 12 hr insulin regular hum U-500 conc 500 130 unit subcut BID DIABETES 12/31/23 12/30/23 History unit/mL(3 mL) subcut pen (Humulin R U-500 (Conc) Insulin Kwikpen) semaglutide 0.25 mg or 0.5 mg (2 0.25 mg subcut FR 12/31/23 01/08/24 History mg/3 mL) subcutaneous pen injector (Ozempic) codeine sulfate 15 mg tablet 15 mg PO Q6H PRN cough 2 days #8 02/14/24 Unknown Rx tabs ondansetron 8 mg disintegrating 8 mg PO Q8H PRN nausea and 02/22/24 Unknown Rx tablet vomiting #15 tabs Allergy/AdvReac Type Severity Reaction Status Date / Time ezetimibe Allergy Unknown Verified 02/22/24 15:00 Fish Containing Products Allergy Unknown Verified 02/22/24 15:00 glyburide Allergy Unknown Verified 02/22/24 15:00 isosorbide Allergy PT UNSURE Verified 02/22/24 15:00 OF REACTION lisinopril Allergy Unknown Verified 02/22/24 15:00 metformin Allergy Nausea Verified 02/22/24 15:00 metoprolol Allergy Unknown Verified 02/22/24 15:00 simvastatin Allergy Unknown Verified 02/22/24 15:00 tramadol Allergy Other Verified 02/22/24 15:00 iron AdvReac Mild Vomiting Verified 02/22/24 15:00 gabapentin AdvReac Other Verified 02/22/24 15:00 Family History Father No problems noted. Surgical History History of cholecystectomy History of knee replacement procedure of left knee History of permanent cardiac pacemaker placement (01/14/21) H/O coronary artery bypass surgery History of coronary artery stent placement Social History household members: spouse Smoking Status: Former smoker details: Unknown substance use type: does not use EXAM Physical Exam Const Vital Signs: 02/22/24 15:00 02/22/24 19:38 02/22/24 19:40 Temperature 98 F Temperature Source Oral Pulse Rate 81 67 Respiratory Rate 18 21 H Respiratory Effort Respiratory Depth Respiratory Pattern Blood Pressure 126/81 H 158/88 H Blood Pressure Mean 96 111 Pulse Ox 98 96 Oxygen Delivery Method Room Air Room Air Room Air 02/22/24 19:42 Temperature Temperature Source Pulse Rate Respiratory Rate Respiratory Effort Normal Non-Labored Respiratory Depth Normal Respiratory Pattern Normal Blood Pressure Blood Pressure Mean Pulse Ox Oxygen Delivery Method Room Air Positive well nourished, well developed and obese General Appearance ED: well developed and NAD Nutritional Appearance: obese HEENT Reports moist mucous membranes normocephalic and atraumatic Eyes PERRL and EOMs intact bilaterally Neck full ROM and supple Resp normal respiratory effort Resp Narrative: Bibasilar rhonchi otherwise clear Effort and Inspection: able to speak in complete sentences Cardio regular rate and regular rhythm Cardio Narrative: Faint heart sounds GI non-tender and non-distended Auscultation: normoactive bowel sounds Palpation: soft Back/Spine no CVA tenderness General Back: other FROM Extremity normal to inspection General Extremety ED: Negative for edema, pulses abnormal or tenderness General Extremity: Negative for edema or pulses abnormal Neuro oriented x3, CN's II-XII intact bilaterally and no sensory deficits noted Sensorium / Orientation: awake and alert Motor Exam: strength 5/5 throughout Psych mental status grossly normal Skin no rashes or lesions noted and no wounds MDM MDM MDM Narrative Medical decision making narrative: 1 view chest x-ray my interpretation shows no evidence of pneumonia or pne umothorax, or pulmonary edema. Radiology in agreement. Given the patient some IV fluids while obtaining some blood tests and an EKG, his rhythm appears to be paced on the monitor, his vital signs are reassuringly normal and his pulse ox is 90% on room air, is usually on 3 L at home and he is not even on that oxygen right now with excellent pulse oximetry, confirming his x-ray findings. Labs basically show chronic anemia, mild hypokalemia likely due to GI losses, and prerenal azotemia with stable creatinine. His troponin and BNP are within normal limits ruling out acute decompensated congestive heart failure. He is not hypoxic and his vital signs are stable. He passed a p.o. fluid challenge and was also given some oral potassium after given IV fluids and Zofran here, and given this I think he is stable to be discharged home with supportive care and a prescription for Zofran. He is asking for something to eat. I am advising him to discontinue the antibiotics given the amount of diarrhea he is having and no evidence of an infection for which they are indicated. Lab Data Attestation: I reviewed the patient's lab results. Labs: Laboratory Results - last 24 hr 02/22/24 19:31 WBC 7.5 RBC 3.83 L Hgb 11.6 L Hct 34.3 L MCV 89.6 MCH 30.3 MCHC 33.8 RDW Std Deviation 44.7 H RDW Coeff of Cinda 13.9 Plt Count 212 MPV 10.2 Immature Gran % (Auto) 0.500 Neut % (Auto) 76.1 H Lymph % (Auto) 13.7 L [place] % (Auto) 8.6 Eos % (Auto) 0.8 Baso % (Auto) 0.3 Absolute Neuts (auto) 5.7 Absolute Lymphs (auto) 1.03 Nucleated RBC % 0 Sodium 134 L Potassium 3.3 L Chloride 99 Carbon Dioxide 29.0 Anion Gap 6 BUN 22 H Creatinine 1.01 Estim Creat Clear Calc 78.27 Est GFR (MDRD) Af Amer 93 Est GFR (MDRD) Non-Af 77 BUN/Creatinine Ratio 21.8 H Glucose 185 H Calcium 9.0 Troponin I High Sens 21 B-Natriuretic Peptide 97.0 Radiography Diagnostic Testing: Clinical Impression(s) from Imaging Studies Chest X-Ray 02/22/24 15:10 IMPRESSION: No radiographic evidence of acute cardiopulmonary disease. Electronically Signed: Angelo Webster MD at 15:38 EST Reading Location ID and State: [facility] / [place] Tel , Service support , Rhythm Strip Rhythm Strip: paced Rate: 80 Ectopy: None EKG Initial EKG: Attestation: I personally reviewed and interpreted this EKG as follows: Interpretation: No Acute Injury Pattern and Paced Discharge Plan Triage Chief Complaint: Shortness of Breath ED Provider: Shai Hassan Dx/Rx/DC Orders Clinical Impression: Gastroenteritis, Viral URI with cough, Hypokalemia due to excessive gastrointestinal loss of potassium, Mild dehydration Instructions: Viral Gastroenteritis Prescriptions: New ondansetron 8 mg tablet,disintegrating 8 mg PO Q8H PRN (Reason: nausea and vomiting) Qty: 15 0RF Continued clopidogrel [Plavix] 75 mg tablet 75 mg PO DAILY levetiracetam 500 mg tablet 500 mg PO BID Trelegy Ellipta 200-62.5-25 mcg blister with device 1 inh inhalation DAILY Qty: 60 6RF atorvastatin 80 MG tablet 80 mg PO QHS aspirin 81 MG tablet 81 mg PO DAILY finasteride 5 MG tablet 5 mg PO DAILY escitalopram oxalate 10 MG tablet 10 mg PO DAILY nitroglycerin 0.4 MG tablet, sublingual 0.4 mg sublingual Q5M PRN (Reason: CHEST PAIN ) Qty: 30 0RF pantoprazole 40 MG tablet 40 mg PO BID carvedilol 25 MG tablet 25 mg PO BID ranolazine 500 mg Tablet Extended Release 12 Hr 500 mg PO Q12H tamsulosin 0.4 MG capsule 0.4 mg PO QHS magnesium oxide 420 mg Tablet 420 mg PO BID albuterol sulfate 2.5 mg /3 mL (0.083 %) Solution For Nebulization 2.5 mg INHALATION Q6H PRN (Reason: SHORTNESS OF BREATH/WHEEZING ) multivitamin with minerals Tablet 1 tab PO DAILY spironolactone [Aldactone] 25 mg tablet 25 mg PO DAILY acetaminophen [Tylenol] 325 MG tablet 650 mg PO 4X/DAY PRN (Reason: PAIN ) cholecalciferol (vitamin D3) [D3-2000] 50 mcg (2,000 unit) capsule 100 mcg PO DAILY furosemide 40 mg Tablet 40 mg PO DAILY guaifenesin [Adult Tussin Chest Congestion] 100 mg/5 mL liquid 200 mg PO TID PRN (Reason: cough) guaifenesin 600 mg tablet extended release 12hr 600 mg PO BID PRN (Reason: cough) Ozempic 0.25 mg or 0.5 mg (2 mg/3 mL) pen injector 0.25 mg subcut FR Patient Comments: FIRST DOSE 12/25/23 Rx Instructions: for 4 weeks Humulin R U-500 (Conc) Kwikpen 500 unit/mL (3 mL) insulin pen 130 unit subcut BID Rx Instructions: 130 units with breakfast; 130 units with dinner codeine sulfate 15 mg tablet 15 mg PO Q6H PRN (Reason: cough) 2 Days Qty: 8 0RF Primary Care Provider: [facility] Ref[facility] [Primary Care Provider] - 3-5 Days if not improving Activity Restrictions/Additional Instructions: Discontinuing the amoxicillin and doxycycline, the antibiotic you were prescribed, is recommended, as they could make your diarrhea worse. Print Language: Citizen Of [place] Disposition Disposition: Home, Self Care
[2024-02-22] MEDS: Ondansetron 4 MG/2 ML Vial IV (19:37)
[2024-02-22] MEDS: 0.9% Normal Saline (1000mL) 1,000 ML 999 ML IV (19:37)
[2024-02-22 19:38] VITALS: BP 158/88; PULSE 67; RESP 21; O2SAT 96
[2024-02-22 19:39] VITALS: BMI 32.5
[2024-02-22 19:41] LABS: Absolute Lymphocyte Count 1.03 X10^3/uL (0.83-4.51); Absolute Neutrophil Count 5.7 X10^3/uL (2.0-7.7); Basophil# 0.02 X10^3/uL; Basophil% 0.3 % (0-1); Eosinophil# 0.06 X10^3/uL; Eosinophils% 0.8 % (0-5); Hematocrit 34.3 % (40-54); Hemoglobin 11.6 g/dL (13.0-16.5); Lymphocyte # 1.03 X10^3/ul (0.83-4.51); Lymphocyte % 13.7 % (19-41); Mean Corp Hgb Conc 33.8 g/dL (32-36); Mean Corpuscular Hgb 30.3 pg (27.0-32.0); Mean Corpuscular Volume 89.6 fL (80-94); Mean Platelet Vol. 10.2 fl (6.2-12.0); Monocyte# 0.65 X10^3/uL; Monocyte% 8.6 % (0-10); NRBC Flagged by Analyzer 0 % (0-5); Neutrophil # 5.74 X10^3/uL (2.7-7.7); Neutrophil % 76.1 % (47-70); Platelet Count 212 K/mm3 (150-450); RBC Distribution Width CV 13.9 % (11.6-14.6); RBC Distribution Width SD 44.7 fl (35.1-43.9); Red Blood Count 3.83 M/mm3 (4.6-6.2); White Blood Count 7.5 K/mm3 (4.4-11.0)
[2024-02-22 19:42] VITALS: O2SAT 93
[2024-02-22 19:59] LABS: Anion Gap 6 (5-15); BUN 22 mg/dL (7-18); BUN/Creat Ratio 21.8 RATIO (10-20); Chloride 99 mmol/L (98-107); Creatinine, Serum 1.01 mg/dL (0.70-1.30); EST Glomerular Filtration Rate 77 mL/min (>60); Est Glom Filt Rate - Afr Amer 93 mL/min (>60); Estimated Creatinine Clearance 78.27 ml/min; Glucose 185 mg/dL (74-106); Potassium 3.3 mmol/L (3.5-5.1); Sodium Level 134 mmol/L (136-145); Troponin-I HS 21 pg/mL (3.0-78.0)
--- NOTE | 2024-02-22 20:09 | ED.RN ---
Pt complaining of the wait in the ER triage. This RN explained we go by acuity and the pt is stable with good spo2 and is not showing signs of breathing difficulty like tripoding or pursing lips. pt stated well breathing difficulty should go first. This RN said yes however we have a lot of sick people in here and it does go based on who is worse. Pt stated I feel bad and I need to be admitted. This RN stated well it just depends on your lab results and what your x ray showed. The doctor will be in soon to talk to you guys. The stated we have been here since 3 pm and he is just now getting seen. This RN stated yes, I am sorry for your wait but we go on acuity.
[2024-02-22] MEDS: Potassium Chloride Oral Tablet 20 MEQ PO (21:15)
[2024-02-22 21:50] VITALS: BP 148/76; PULSE 70; RESP 25; TEMP 36.4; O2SAT 93
== END 2024-02-22 21:53 | disposition home or self-care (01) ==
PROVIDERS: Emergency Provider Emergency Medicine; Visit Provider Emergency Medicine
DX: J06.9 Acute upper respiratory infection, unspecified (principal); I50.9 Heart failure, unspecified; I11.0 Hypertensive heart disease with heart failure; J44.9 Chronic obstructive pulmonary disease, unspecified; E11.9 Type 2 diabetes mellitus without complications; K52.9 Noninfective gastroenteritis and colitis, unspecified; E78.5 Hyperlipidemia, unspecified; E87.6 Hypokalemia; Z87.891 Personal history of nicotine dependence; I25.10 Atherosclerotic heart disease of native coronary artery without angina pectoris; E86.0 Dehydration; E66.9 Obesity, unspecified
CPT/HCPCS: 71046; 80048; 83880; 84484; 85025; 93005; 96361; 96374; 99283; A4216; J2405

== ENCOUNTER 2024-03-07 12:45 | Inpatient (IN) | payer OTHER, SELFPAY ==
[2024-03-07] VITALS (8 sets, daily range): BP systolic 120–164; BP diastolic 65–85; PULSE 60–81; RESP 16–20; TEMP 36.2–36.8; O2SAT 91–96; BMI 31.6; BMI 31.4
--- NOTE | 2024-03-07 13:55 | EKG12_ITS ---
Test Reason : GENERAL Blood Pressure : */* mmHG Vent. Rate : 63 BPM Atrial Rate : 71 BPM P-R Int : * ms QRS Dur : 142 ms QT Int : 500 ms P-R-T Axes : * 250 118 degrees QTcB Int : 511 ms Ventricular-paced rhythm Biventricular pacemaker detected Abnormal ECG Confirmed by BRYN GUALLPA, JULIO C ([id number]), editor news NADINE FERRER ([id number]) on 03/15/2024 6:04:35 AM Referred By: Confirmed By: JULIO C CLEMENTE MD
--- NOTE | 2024-03-07 13:55 | RAD_ITS ---
STUDY: X-RAY CHEST REASON FOR EXAM: Male, 73 years old. Cough, chest pain TECHNIQUE: PA and lateral views of the chest. COMPARISON: Comparison is made with prior study dated August 11, 2024. FINDINGS: EKG electrodes are seen. Stable increased markings at both lung bases worse on the left side. Prior multiple open reduction internal fixation of the left rib fractures. Stable blunting of the left costo phrenic angle. Sternal cerclage wires and vascular clips are present from a prior sternotomy and coronary artery bypass graft procedure (CABG). Left-sided dual-chamber pacemaker is seen. Cardiomegaly. Normal mediastinum and cata. Normal visualized pulmonary arteries. There is atherosclerotic tortuosity of the aortic arch and descending thoracic aorta. There are degenerative changes of the visualized thoracic spine. There is degenerative osteoarthritis of the bilateral shoulders. There is no demonstrated abnormality of the visualized soft tissue structures of the upper abdomen. RAD/Chest PA and Lateral IMPRESSION: Stable examination. Electronically Signed: Mick García MD at 14:39 EST ,
[2024-03-07 14:16] LABS: Absolute Lymphocyte Count 0.58 X10^3/uL (0.83-4.51); Absolute Neutrophil Count 4.2 X10^3/uL (2.0-7.7); Basophil# 0.02 X10^3/uL; Basophil% 0.4 % (0-1); Eosinophil# 0.07 X10^3/uL; Eosinophils% 1.3 % (0-5); Hematocrit 33.3 % (40-54); Hemoglobin 10.9 g/dL (13.0-16.5); Lymphocyte # 0.58 X10^3/ul (0.83-4.51); Lymphocyte % 11.1 % (19-41); Mean Corp Hgb Conc 32.7 g/dL (32-36); Mean Corpuscular Hgb 29.8 pg (27.0-32.0); Mean Platelet Vol. 10.1 fl (6.2-12.0); Monocyte# 0.33 X10^3/uL; Monocyte% 6.3 % (0-10); NRBC Flagged by Analyzer 0 % (0-5); Neutrophil % 80.7 % (47-70); POSITIVE DIFFERENTIAL YES; Platelet Count 216 K/mm3 (150-450); RBC Distribution Width CV 13.9 % (11.6-14.6); RBC Distribution Width SD 44.5 fl (35.1-43.9); Red Blood Count 3.66 M/mm3 (4.6-6.2); White Blood Count 5.2 K/mm3 (4.4-11.0)
[2024-03-07 14:29] LABS: International Normalized Ratio 1.1; Prothrombin Time (Protime)PT. 14.7 SECONDS (11.7-14.9)
[2024-03-07 14:30] LABS: Partial Thromboplast Time 40.2 Seconds (24.1-36.2)
[2024-03-07 14:31] LABS: Anion Gap 4 (5-15); BUN 11 mg/dL (7-18); BUN/Creat Ratio 11.3 RATIO (10-20); Calcium,Total 8.8 mg/dL (8.5-10.1); Chloride 102 mmol/L (98-107); Creatinine, Serum 0.98 mg/dL (0.70-1.30); EST Glomerular Filtration Rate 80 mL/min (>60); Est Glom Filt Rate - Afr Amer 97 mL/min (>60); Estimated Creatinine Clearance 79.57 ml/min; Glucose 249 mg/dL (74-106); Potassium 3.7 mmol/L (3.5-5.1); Sodium Level 136 mmol/L (136-145); Troponin-I HS (w/2H Reflex) 18 pg/mL (3.0-78.0)
[2024-03-07 15:27] LABS: D-Dimer Quantitative (DVT/PE) 0.84 FEU/ug/m (0.27-0.49)
--- NOTE | 2024-03-07 15:32 | EDS_ITS ---
HPI History of Present Illness Chief Complaint: General Illness Narrative Narrative: Patient is a 73-year-old male with past medical history of COPD, heart failure, EKATERINA, sick sinus syndrome, diabetes, CVA, hyperlipidemia who presents to the emergency department with a chief complaint of coughing up blood, shortness of breath and chest pain. He states that the chest pain has been going on for approximately 3 months. He states that he seen several doctors and does not exactly know what is going on. He states that his called his doctor who advised her to bring him here for further evaluation management. Denies any blood thinning medications [facility] Medical History ICD (implantable cardioverter-defibrillator) in place History of CAD (coronary artery disease) Lung nodule Obesity Chronic hypoxemic respiratory failure COPD (chronic obstructive pulmonary disease) Left-sided weakness Chest pain Syncope DNR (do not resuscitate) DNR (do not resuscitate) discussion Heart failure EKATERINA (obstructive sleep apnea) Anemia Chronic hyperglycemia History of TIAs Conversion reaction Sick sinus syndrome Pacemaker battery depletion Hemiparesis, left Former smoker On home oxygen therapy Pacemaker Congestive heart failure (CHF) Myocardial infarct Chest pain Pulmonary embolism Dysarthria BiPAP (biphasic positive airway pressure) dependence Wears hearing aid in both ears Diabetes Stroke/cerebrovascular accident COPD (chronic obstructive pulmonary disease) History of fractured rib CAD (coronary artery disease) Essential (primary) hypertension Atherosclerotic heart disease [place] coronary artery w/angina pectoris EKATERINA (obstructive sleep apnea) Abnormal EKG DM type 2 (diabetes mellitus, type 2) Chronic respiratory failure Obesity Hyperlipidemia Home Medications ?Medication ?Instructions ?Recorded ?Last Taken ?Type aspirin 81 mg tablet,delayed 81 mg PO DAILY HEART HEALTH 06/11/18 03/06/24 Hi story release atorvastatin 80 mg tablet 80 mg PO QHS CHOLESTEROL 06/11/18 03/06/24 History escitalopram oxalate 10 mg tablet 10 mg PO DAILY DEPRESSION 06/11/18 03/06/24 History finasteride 5 mg tablet 5 mg PO DAILY PROSTATE 06/11/18 03/06/24 History nitroglycerin 0.4 mg sublingual 0.4 mg sublingual Q5M PRN CHEST 07/22/18 01/17/20 Rx tablet PAIN #30 TABLETS pantoprazole 40 mg tablet,delayed 40 mg PO BID GERD 05/18/20 03/06/24 History release carvedilol 25 mg tablet 25 mg PO BID BLOOD PRESSURE 06/22/20 03/06/24 History ranolazine 500 mg tablet,extended 500 mg PO Q12H CHEST PAIN 06/22/20 03/06/24 History release,12 hr tamsulosin 0.4 mg capsule 0.4 mg PO QHS PROSTATE 08/10/20 03/06/24 History clopidogrel 75 mg tablet (Plavix) 75 mg PO DAILY BLOOD THINNER 01/07/21 03/06/24 History albuterol sulfate 2.5 mg/3 mL 2.5 mg inhalation Q6H PRN 12/12/21 03/06/24 History (0.083 %) solution for nebulization SHORTNESS OF BREATH/WHEEZING magnesium oxide 420 mg tablet 420 mg PO BID SUPPLEMENT 12/12/21 03/06/24 History multivitamin with minerals 1 tab PO DAILY SUPPLEMENT 12/12/21 03/06/24 History spironolactone 25 mg tablet 25 mg PO DAILY BLOOD PRESSURE 09/10/22 03/06/24 History (Aldactone) acetaminophen 325 mg tablet 650 mg PO 4X/DAY PRN PAIN 01/27/23 03/06/24 History (Tylenol) cholecalciferol (vitamin D3) 50 100 mcg PO DAILY SUPPLEMENT 03/04/23 03/06/24 History mcg (2,000 unit) capsule (D3-2000) levetiracetam 500 mg tablet 500 mg PO BID seizure 05/27/23 03/06/24 History furosemide 40 mg tablet 40 mg PO DAILY EDEMA 07/19/23 03/06/24 History fluticasone fur. 200 mcg-umeclid 1 inh inhalation DAILY #60 ea 12/14/23 03/06/24 Rx 62.5 mcg-vilant 25 mcg inhalat.powder (Trelegy Ellipta) guaifenesin 100 mg/5 mL oral 200 mg PO TID PRN cough 12/31/23 Unknown History liquid (Adult Tussin Chest Congestion) guaifenesin 600 mg tablet, 600 mg PO BID PRN cough 12/31/23 03/06/24 History extended release 12 hr insulin regular hum U-500 conc 500 130 unit subcut BID DIABETES 12/31/23 03/06/24 History unit/mL(3 mL) subcut pen (Humulin R U-500 (Conc) Insulin Kwikpen) semaglutide 0.25 mg or 0.5 mg (2 0.25 mg subcut FR 12/31/23 03/04/24 History mg/3 mL) subcutaneous pen injector (Ozempic) codeine sulfate 15 mg tablet 15 mg PO Q6H PRN cough 2 days #8 02/14/24 Unknown Rx tabs ondansetron 8 mg disintegrating 8 mg PO Q8H PRN nausea and 02/22/24 Unknown Rx tablet vomiting #15 tabs Allergy/AdvReac Type Severity Reaction Status Date / Time ezetimibe Allergy Unknown Verified 03/07/24 12:45 Fish Containing Products Allergy Unknown Verified 03/07/24 12:45 glyburide Allergy Unknown Verified 03/07/24 12:45 isosorbide Allergy PT UNSURE Verified 03/07/24 12:45 OF REACTION lisinopril Allergy Unknown Verified 03/07/24 12:45 metformin Allergy Nausea Verified 03/07/24 12:45 metoprolol Allergy Unknown Verified 03/07/24 12:45 simvastatin Allergy Unknown Verified 03/07/24 12:45 tramadol Allergy Other Verified 03/07/24 12:45 iron AdvReac Mild Vomiting Verified 03/07/24 12:45 gabapentin AdvReac Other Verified 03/07/24 12:45 Family History Father No problems noted. Surgical History History of cholecystectomy History of knee replacement procedure of left knee History of permanent cardiac pacemaker placement (01/14/21) H/O coronary artery bypass surgery History of coronary artery stent placement Social History household members: spouse Smoking Status: Former smoker details: Unknown substance use type: does not use ROS ROS ED ROS Narrative Constitutional: Denies any fevers, chills, headaches, lightness, dizziness Eyes: Denies change in vision double vision blurry vision Cardiovascular: Complains of chest pain as noted above denies palpitations Respiratory: Complains of coughing up blood as noted above as well as shortness of breath Abdomen: Denies abdominal pain nausea vomit diarrhea : Denies any urinary symptoms Neurological: Denies any numbness, weakness, tingling Musculoskeletal: Denies back pain Skin: Denies any rashes or lesions EXAM Physical Exam Narrative Exam Narrative: General: Patient was lying in bed rest comfortably did not appear to be in acute distress Head: Atraumatic, normocephalic Eyes: PERRL bilaterally, EOMI bilaterally, no conjunctival injection noted Neck: Soft, supple, trachea midline Cardiovascular: Regular rate and rhythm no murmurs gallops rubs noted Respiratory: Clear to auscultation bilaterally no rales rhonchi or wheezes noted Abdomen: Soft, nondistended, nontender to palpation, bowel sounds present x 4 Extremities: +4/5 strength noted in the bilateral upper and lower extremities, no pedal edema on exam Neurological: Patient following commands knew that he was at [facility] year is 2024 Skin: Warm, dry, intact Const Vital Signs: 03/07/24 12:46 03/07/24 13:53 03/07/24 13:55 Temperature 98.1 F Temperature Source Temporal Pulse Rate 76 Respiratory Rate 18 Respiratory Effort Normal Respiratory Pattern Normal Blood Pressure 120/85 H Blood Pressure Mean 96 Pulse Ox 94 96 Oxygen Delivery Method Room Air Room Air 03/07/24 14:45 03/07/24 16:00 Temperature Temperature Source Pulse Rate 60 62 Respiratory Rate 18 19 H Respiratory Effort Respiratory Pattern Blood Pressure 128/85 H 163/74 H Blood Pressure Mean 99 103 Pulse Ox 96 94 Oxygen Delivery Method Room Air Room Air MDM MDM MDM Narrative Medical decision making narrative: Patient is a 73-year-old male who presented to the emergency department with a chief complaint of hemoptysis, shortness of breath and chest pain. On the differential diagnose includes but not limited to ACS, pneumonia, bronchitis, pneumothorax. Once workup is obtained reviewed he will be reevaluated. Patient's CBC reviewed showed no evidence of leukocytosis white blood cell count was normal at 5.2, hemoglobin stable at 10.9, platelet count was 216. Patient's INR 1.1, PT of 14.7. Patient's sodium was 136, potassium 3.7, creatinine normal at 0.98. Patient's troponin was 18 with a delta troponin obtained at 28. Patient's EKG reviewed and independently interpreted by self showed ventricular paced rhythm with a rate of 63 bpm. Patient's chest x-ray reviewed and independently interpreted by myself which showed no acute cardiopulmonary processes overall chronic findings. I did add on a D-dimer as patient's workup was largely unremarkable thus far and he has been worked up by outside providers and states that nothing is really changing. D-dimer was reviewed and was elevated with age adjustment VTE is still possible therefore CT angiography chest was added on. CT angiography chest was reviewed which showed no demonstration of pulmonary embolism or arterial dissection, however there is prominent mediastinal adenopathy and large subcarinal mass. Focal pulmonary opacity in the left lower lobe consistent with atelectasis/infiltrate or neoplastic process. At this point time do believe the patient will warrant admission for further workup of his large subcarinal mass with his hemoptysis. Did discuss results with the patient and at bedside. They are agreeable with admission. Patient's case will be discussed with hospitalist. Discussed the case with hospitalist Dr. Holman who accept the patient for admission. Patient was notified as well as at bedside they are agreeable this plan all question concerns answered. Lab Data Labs: Laboratory Results - last 24 hr 03/07/24 03/07/24 03/07/24 14:05 15:07 16:15 WBC 5.2 RBC 3.66 L Hgb 10.9 L Hct 33.3 L MCV 91.0 MCH 29.8 MCHC 32.7 RDW Std Deviation 44.5 H RDW Coeff of Cinda 13.9 Plt Count 216 MPV 10.1 Immature Gran % (Auto) 0.200 Neut % (Auto) 80.7 H Lymph % (Auto) 11.1 L [place] % (Auto) 6.3 Eos % (Auto) 1.3 Baso % (Auto) 0.4 Absolute Neuts (auto) 4.2 Absolute Lymphs (auto) 0.58 L Nucleated RBC % 0 PT 14.7 INR 1.1 APTT 40.2 H D-Dimer Quant (PE/DVT) 0.84 H* Sodium 136 Potassium 3.7 Chloride 102 Carbon Dioxide 30.0 Anion Gap 4 L BUN 11 Creatinine 0.98 Estim Creat Clear Calc 79.57 Est GFR (MDRD) Af Amer 97 Est GFR (MDRD) Non-Af 80 BUN/Creatinine Ratio 11.3 Glucose 249 H Calcium 8.8 Troponin I High Sens 18 20 Radiography Diagnostic Testing: Clinical Impression(s) from Imaging Studies Chest X-Ray 03/07/24 13:55 IMPRESSION: Stable examination. Electronically Signed: Mick García MD at 14:39 EST , Chest CTA 03/07/24 15:33 IMPRESSION: No demonstrated pulmonary embolism or arterial dissection. Prominent mediastinal adenopathy and large subcarinal mass. Focal pulmonary opacity in the left lower lobe consistent with atelectasis/infiltrate or neoplastic mass. Electronically Signed: Richard Dow MD at 16:50 EST , Discharge Plan Triage Chief Complaint: General Illness ED Provider: [place] [facility] Dx/Rx/DC Orders Clinical Impression: Cough with hemoptysis, Lung mass, Breath shortness, Chest pain Prescriptions: No Action clopidogrel [Plavix] 75 mg tablet 75 mg PO DAILY levetiracetam 500 mg tablet 500 mg PO BID Trelegy Ellipta 200-62.5-25 mcg blister with device 1 inh inhalation DAILY Qty: 60 6RF atorvastatin 80 MG tablet 80 mg PO QHS aspirin 81 MG tablet 81 mg PO DAILY finasteride 5 MG tablet 5 mg PO DAILY escitalopram oxalate 10 MG tablet 10 mg PO DAILY nitroglycerin 0.4 MG tablet, sublingual 0.4 mg sublingual Q5M PRN (Reason: CHEST PAIN ) Qty: 30 0RF pantoprazole 40 MG tablet 40 mg PO BID carvedilol 25 MG tablet 25 mg PO BID ranolazine 500 mg Tablet Extended Release 12 Hr 500 mg PO Q12H tamsulosin 0.4 MG capsule 0.4 mg PO QHS magnesium oxide 420 mg Tablet 420 mg PO BID albuterol sulfate 2.5 mg /3 mL (0.083 %) Solution For Nebulization 2.5 mg INHALATION Q6H PRN (Reason: SHORTNESS OF BREATH/WHEEZING ) multivitamin with minerals Tablet 1 tab PO DAILY spironolactone [Aldactone] 25 mg tablet 25 mg PO DAILY acetaminophen [Tylenol] 325 MG tablet 650 mg PO 4X/DAY PRN (Reason: PAIN ) cholecalciferol (vitamin D3) [D3-2000] 50 mcg (2,000 unit) capsule 100 mcg PO DAILY furosemide 40 mg Tablet 40 mg PO DAILY guaifenesin [Adult Tussin Chest Congestion] 100 mg/5 mL liquid 200 mg PO TID PRN (Reason: cough) guaifenesin 600 mg tablet extended release 12hr 600 mg PO BID PRN (Reason: cough) Ozempic 0.25 mg or 0.5 mg (2 mg/3 mL) pen injector 0.25 mg subcut FR Patient Comments: FIRST DOSE 12/25/23 Rx Instructions: for 4 weeks Humulin R U-500 (Conc) Kwikpen 500 unit/mL (3 mL) insulin pen 130 unit subcut BID Rx Instructions: 130 units with breakfast; 130 units with dinner ondansetron 8 mg tablet,disintegrating 8 mg PO Q8H PRN (Reason: nausea and vomiting) Qty: 15 0RF codeine sulfate 15 mg tablet 15 mg PO Q6H PRN (Reason: cough) 2 Days Qty: 8 0RF [facility] [Primary Care Provider] - Print Language: Slovak Disposition Disposition: Acute Care Hospital [facility]
--- NOTE | 2024-03-07 15:33 | CT_ITS ---
STUDY: CTA CHEST REASON FOR EXAM: Male, 73 years old. elevated dimer, hemoptysis, cp, copd RADIATION DOSAGE (If Supplied By Facility): CTDIvol = ( 13.77 ) mGy, DLP = ( 481.91 ) mGycm TECHNIQUE: The examination was performed with the intravenous administration of IV 100mL [id number]-370. Post-processing of the angiographic images was performed, with multiplanar reformation and 3D reconstruction. Individualized dose optimization techniques were used for this CT. COMPARISON: None. FINDINGS: Normal enhancement of the main pulmonary artery and right and left pulmonary arteries. Normal enhancement of the bilateral peripheral pulmonary arteries. There is no demonstrated pulmonary embolism. Normal thoracic aorta and visualized great vessels. There is no demonstrated aortic dissection. Sternal cerclage wires and vascular clips are present from a prior sternotomy and coronary artery bypass graft procedure (CABG). Pacemaker is seen with leads terminating in the right atrium and right ventricle. Marked coronary artery calcifications. Prominent mediastinal adenopathy seen. There is a 3.3 cm right azygos lymph node. Several lymph nodes are seen in the left prevascular space. Mass is seen in the subcarinal space with greatest dimension of 5.6 cm. Normal visualized trachea and bronchi. The lungs are hyper expanded, with flattening of the hemidiaphragms. There is a pleural-based mass in the posterior left lower lobe with greatest dimension of approximately 5.6 cm. This could be consolidation from atelectasis or pneumonia but mass is not excluded. There is a small left pleural effusion. There are degenerative changes of thoracic spine. There is demineralization. There is fusion throughout the thoracic spine. Several left rib fractures have been repaired with fixation hardware. Normal visualized upper abdomen. CT/CTA Chest W/WO Contrast IMPRESSION: No demonstrated pulmonary embolism or arterial dissection. Prominent mediastinal adenopathy and large subcarinal mass. Focal pulmonary opacity in the left lower lobe consistent with atelectasis/infiltrate or neoplastic mass. Electronically Signed: Richard Dow MD at 16:50 EST ,
[2024-03-07 16:08] LABS: Reflex Troponin-HS? (from REC) Y
[2024-03-07 16:52] LABS: Troponin-I HS 20 pg/mL (3.0-78.0)
[2024-03-07] MEDS: Morphine 4 MG/ML Syringe IV (16:56)
[2024-03-07] MEDS: Ondansetron 4 MG/2 ML Vial IV (16:56)
--- NOTE | 2024-03-07 18:14 | HP.PCM.HOS_ITS ---
HPI - General General Date of Admission: 03/07/24 Date of Service: 03/07/24 Chief Complaint: SOB, hemoptysis HPI Narrative GIOVANNY LEONARDO, is a 73-year-old male history of ICD/pacemaker, COPD no longer on home O2, EKATERINA, depression, GERD, hypertension, BPH, CABG, diabetes who presented [facility] 03/07/2024 due to worsening shortness of breath and hemoptysis. Patient has recently been treated for pneumonia and bronchitis but reports his shortness of breath has worsened since that time and now he has stacy/bloody streaking in his sputum. In the ED patient 93% room air at rest. He had D-dimer obtained which was 0.84 and ultimately leading to him having a CTA which did not demonstrate PE but did show prominent mediastinal adenopathy and large subcarinal mass and opacity in left lower lobe consistent with atelectasis/infiltrate or neoplastic mass. Given patient's progressive worsening of his symptoms with hemoptysis and CT findings hospitalist contacted for admission. Patient evaluated at bedside and does report the the progressive worsening shortness of breath and cough with clear to nagy sputum with dark stacy streaking. Does have some chronic chest pain that he feels has been more sore since he had a pacemaker placed. Additionally notes intermittent abdominal pain and intermittent diarrhea that come and go but have not particularly changed. Patient does feel generally weak all over as well. [facility] Medical History (Updated 03/07/24 @ 18:10 by Jada Velasquez) Abnormal EKG Anemia Atherosclerotic heart disease [place] coronary artery w/angina pectoris BiPAP (biphasic positive airway pressure) dependence CAD (coronary artery disease) Chest pain Chest pain Chronic hyperglycemia Chronic hypoxemic respiratory failure Chronic pain Chronic respiratory failure Congestive heart failure (CHF) Conversion reaction COPD (chronic obstructive pulmonary disease) COPD (chronic obstructive pulmonary disease) COPD (chronic obstructive pulmonary disease) CPAP (continuous positive airway pressure) dependence Diabetes DM type 2 (diabetes mellitus, type 2) DNR (do not resuscitate) DNR (do not resuscitate) discussion Dysarthria Essential (primary) hypertension Former smoker GERD (gastroesophageal reflux disease) Heart failure Hemiparesis, left History of CAD (coronary artery disease) History of fractured rib History of TIAs Hyperlipidemia ICD (implantable cardioverter-defibrillator) in place ICD (implantable cardioverter-defibrillator) in place Left-sided weakness Lung nodule Myocardial infarct Obesity Obesity On home oxygen therapy EKATERINA (obstructive sleep apnea) EKATERINA (obstructive sleep apnea) Pacemaker Pacemaker Pacemaker battery depletion Pulmonary embolism Seizures Sick sinus syndrome Stroke/cerebrovascular accident Syncope TIA (transient ischemic attack) Wears hearing aid in both ears Home Medications ?Medication ?Instructions ?Recorded ?Last Taken ?Type aspirin 81 mg tablet,delayed 81 mg PO DAILY HEART HEALTH 06/11/18 03/06/24 History release atorvastatin 80 mg tablet 80 mg PO QHS CHOLESTEROL 06/11/18 03/06/24 History escitalopram oxalate 10 mg tablet 10 mg PO DAILY DEPRESSION 06/11/18 03/06/24 History finasteride 5 mg tablet 5 mg PO DAILY PROSTATE 06/11/18 03/06/24 History nitroglycerin 0.4 mg sublingual 0.4 mg sublingual Q5M PRN CHEST 07/22/18 01/17/20 Rx tablet PAIN #30 TABLETS pantoprazole 40 mg tablet,delayed 40 mg PO BID GERD 05/18/20 03/06/24 History release carvedilol 25 mg tablet 25 mg PO BID BLOOD PRESSURE 06/22/20 03/06/24 History ranolazine 500 mg tablet,extended 500 mg PO Q12H CHEST PAIN 06/22/20 03/06/24 History release,12 hr tamsulosin 0.4 mg capsule 0.4 mg PO QHS PROSTATE 08/10/20 03/06/24 History clopidogrel 75 mg tablet (Plavix) 75 mg PO DAILY BLOOD THINNER 01/07/21 03/06/24 History albuterol sulfate 2.5 mg/3 mL 2.5 mg inhalation Q6H PRN 12/12/21 03/06/24 History (0.083 %) solution for nebulization SHORTNESS OF BREATH/WHEEZING magnesium oxide 420 mg tablet 420 mg PO BID SUPPLEMENT 12/12/21 03/06/24 History multivitamin with minerals 1 tab PO DAILY SUPPLEMENT 12/12/21 03/06/24 History spironolactone 25 mg tablet 25 mg PO DAILY BLOOD PRESSURE 09/10/22 03/06/24 History (Aldactone) acetaminophen 325 mg tablet 650 mg PO 4X/DAY PRN PAIN 01/27/23 03/06/24 History (Tylenol) cholecalciferol (vitamin D3) 50 100 mcg PO DAILY SUPPLEMENT 03/04/23 03/06/24 History mcg (2,000 unit) capsule (D3-2000) levetiracetam 500 mg tablet 500 mg PO BID seizure 05/27/23 03/06/24 History furosemide 40 mg tablet 40 mg PO DAILY EDEMA 07/19/23 03/06/24 History fluticasone fur. 200 mcg-umeclid 1 inh inhalation DAILY #60 ea 12/14/23 03/06/24 Rx 62.5 mcg-vilant 25 mcg inhalat.powder (Trelegy Ellipta) guaifenesin 100 mg/5 mL oral 200 mg PO TID PRN cough 12/31/23 Unknown History liquid (Adult Tussin Chest Congestion) guaifenesin 600 mg tablet, 600 mg PO BID PRN cough 12/31/23 03/06/24 History extended release 12 hr insulin regular hum U-500 conc 500 130 unit subcut BID DIABETES 12/31/23 03/06/24 History unit/mL(3 mL) subcut pen (Humulin R U-500 (Conc) Insulin Kwikpen) semaglutide 0.25 mg or 0.5 mg (2 0.25 mg subcut FR 12/31/23 03/04/24 History mg/3 mL) subcutaneous pen injector (Ozempic) codeine sulfate 15 mg tablet 15 mg PO Q6H PRN cough 2 days #8 02/14/24 Unknown Rx tabs ondansetron 8 mg disintegrating 8 mg PO Q8H PRN nausea and 02/22/24 Unknown Rx tablet vomiting #15 tabs Allergy/AdvReac Type Severity Reaction Status Date / Time ezetimibe Allergy Unknown Verified 03/07/24 12:45 Fish Containing Products Allergy Unknown Verified 03/07/24 12:45 glyburide Allergy Unknown Verified 03/07/24 12:45 isosorbide Allergy PT UNSURE Verified 03/07/24 12:45 OF REACTION lisinopril Allergy Unknown Verified 03/07/24 12:45 metformin Allergy Nausea Verified 03/07/24 12:45 metoprolol Allergy Unknown Verified 03/07/24 12:45 simvastatin Allergy Unknown Verified 03/07/24 12:45 tramadol Allergy Other Verified 03/07/24 12:45 iron AdvReac Mild Vomiting Verified 03/07/24 12:45 gabapentin AdvReac Other Verified 03/07/24 12:45 Family History Father No problems noted. Surgical History (Updated 03/07/24 @ 18:10 by Jada Velasquez) H/O coronary artery bypass surgery History of cholecystectomy History of coronary artery stent placement History of coronary artery stent placement History of knee replacement procedure of left knee History of permanent cardiac pacemaker placement (01/14/21) Social History household members: spouse Smoking Status: Former smoker details: Unknown substance use type: does not use ROS ROS Narrative General: Gets some chills but no overt fever HENT: Sometimes has a sore throat but no stuffy nose EYES: Denies acute changes in vision Resp: Hemoptysis and increasing shortness of breath Cardiac: Has some chronic left-sided chest pain GI: Intermittent abdominal pain with intermittent diarrhea with no specific association or recent change, denies nausea/vomiting : Denies changes in urination Extremity: Denies swelling MSK: Generalized weakness Neuro: Denies any numbness/tingling Heme: Denies any bleeding or bruising Skin: Denies rashes Psychiatric: No complaints voiced Vital Signs Vital Signs Vital Signs: 03/07/24 12:46 03/07/24 13:53 03/07/24 13:55 Temperature 98.1 F Temperature Source Temporal Pulse Rate 76 Respiratory Rate 18 Respiratory Effort Normal Respiratory Pattern Normal Blood Pressure 120/85 H Blood Pressure Mean 96 Pulse Ox 94 96 Oxygen Delivery Method Room Air Room Air 03/07/24 14:45 03/07/24 16:00 03/07/24 18:00 Temperature Temperature Source Pulse Rate 60 62 62 Respiratory Rate 18 19 H 18 Respiratory Effort Respiratory Pattern Blood Pressure 128/85 H 163/74 H 164/76 H Blood Pressure Mean 99 103 105 Pulse Ox 96 94 93 Oxygen Delivery Method Room Air Room Air Room Air Weight Weight: 100 kg Body Mass Index (BMI) 31.6 Physical Exam Narrative General: Alert, oriented HEENT: Atraumatic, normocephalic Eyes: Anicteric, normal conjunctiva, extraocular movements grossly intact Neck: Supple Respiratory: Somewhat diminished left lower lobe greater than right with slight increased work of breathing Cardiovascular: Regular rate GI: Soft, no rebound, guarding, rigidity Extremities: No significant pitting edema Musculoskeletal: Moving all extremities Neuro: No overt focal neurological deficits Skin: No rashes appreciated Psych: Cooperative Results Lab / Micro Data 03/07/24 14:05 03/07/24 14:05 Labs: Laboratory Results - last 24 hr 03/07/24 14:05: WBC 5.2, RBC 3.66 L, Hgb 10.9 L, Hct 33.3 L, MCV 91.0, MCH 29.8, MCHC 32.7, RDW Std Deviation 44.5 H, RDW Coeff of Cinda 13.9, Plt Count 216, MPV 10.1, Immature Gran % (Auto) 0.200, Neut % (Auto) 80.7 H, Lymph % (Auto) 11.1 L, [place] % (Auto) 6.3, Eos % (Auto) 1.3, Baso % (Auto) 0.4, Absolute Neuts (auto) 4.2, Absolute Lymphs (auto) 0.58 L, Nucleated RBC % 0, PT 14.7, INR 1.1, APTT 40.2 H, Sodium 136, Potassium 3.7, Chloride 102, Carbon Dioxide 30.0, Anion Gap 4 L, BUN 11, Creatinine 0.98, Estim Creat Clear Calc 79.57, Est GFR (MDRD) Af Amer 97, Est GFR (MDRD) Non-Af 80, BUN/Creatinine Ratio 11.3, Glucose 249 H, Calcium 8.8, Troponin I High Sens 18 03/07/24 15:07: D-Dimer Quant (PE/DVT) 0.84 H* 03/07/24 16:15: Troponin I High Sens 20 Imaging Radiology Impression Chest X-Ray 03/07/24 13:55 IMPRESSION: Stable examination. Electronically Signed: Mick García MD at 14:39 EST , Chest CTA 03/07/24 15:33 IMPRESSION: No demonstrated pulmonary embolism or arterial dissection. Prominent mediastinal adenopathy and large subcarinal mass. Focal pulmonary opacity in the left lower lobe consistent with atelectasis/infiltrate or neoplastic mass. Electronically Signed: Richard Dow MD at 16:50 EST , Assessment & Plan Assessment/Plan (1) Breath shortness: PLAN: Plan # Increased shortness of breath with subcarinal mass 5.6 cm and left lower lobe opacity -CTA concerning for malignancy w/ subcarinal mass -Cannot rule out left lower lobe opacity being pneumonia versus neoplasm -Given that this is unclear we will continue coverage for pneumonia -De-escalate as appropriate -DuoNebs and as needed albuterol -Sputum culture, COVID ordered, respiratory panel ordered -Mucinex, I/S -Unasyn -Also consult pulmonology given his significant subcarinal mass, ?bronchoscopy. -Given unclear if the left lower lobe opacity is pneumonia or neoplasm it is unclear the utility of a CT-guided biopsy, appreciate pulm input -Will make patient n.p.o. at midnight in the event he would qualify/need procedure tomorrow # History of coronary artery disease -With prior CABG -Continuing statin -Will hold off on ordering patient's Plavix and aspirin for tomorrow a.m., pending amount of hemoptysis and any plan for procedures. Resume 1 or both when it is feasible to do so. -Continue Ranexa and Coreg #Type 2 diabetes mellitus -Glucose checks and sliding scale insulin -Will continue patient's subcu insulin but at lower dose given unclear compliance and want to avoid hypoglycemia, can uptitrate #Hypertension -Continue home antihypertensives # COPD -Nebs and supportive care as above -Given he is on Trelegy Ellipta with inhaled steroids at home will start budesonide inhalation here while admitted in addition to the nebs #EKATERINA -Continue home NIPPV if applicable -Patient does report compliance so we will order this #GERD -Continue PPI #Depression/anxiety -Continue home Lexapro #Chronic BPH with obstruction -Continue home medications # History of sick sinus syndrome status post pacemaker -Pacemaker in place, EKG shows paced rhythm #?Hx seizure disorder -Continue Keppra #DVT ppx: SCDs Belle Holman MD Time spent in the patient's overall evaluation, decision-making process, review of diagnostic data, adjustment of management, discussion with other providers, nursing and ancillary staff involved in patient's care documentation, 57 Minutes Charges/Coding Visit Charges Inpatient E&M: 52861 Init Hosp L2
[2024-03-07] MEDS: 0.9% Saline Lock 10 ML Syringe IV (20:52)
[2024-03-07] MEDS: Morphine 2 MG/ML Syringe IV (20:52)
[2024-03-07] MEDS: Ampicillin/Sulbactam 3 GM in 0.9% Normal Saline (100mL MB+) 100 ML IV ×2 (22:21→23:53)
[2024-03-07] MEDS: 0.9% Normal Saline (100mL Bag) 100 ML 15 ML IV (22:22)
[2024-03-07] MEDS: guaiFENesin 1,200 MG Tablet 1200 MG PO (22:24)
[2024-03-07] MEDS: Atorvastatin Calcium 80 MG Tablet PO (22:25)
[2024-03-07] MEDS: Tamsulosin HCl 0.4 MG Capsule PO (22:26)
[2024-03-07] MEDS: Magnesium Chloride 64 MG Delay Rel.Tablet 128 MG PO (22:26)
[2024-03-07] MEDS: levETIRAcetam 500 MG Tablet PO (22:26)
[2024-03-07] MEDS: Carvedilol 25 MG Tablet PO (22:26)
[2024-03-07] MEDS: Pantoprazole Sodium 40 MG Tablet PO (22:26)
[2024-03-07] MEDS: Ranolazine 500 MG Tablet PO (22:26)
[2024-03-07] MEDS: Insulin Lispro 100 UNIT/ML INSULN.PEN SC (22:29)
[2024-03-08] VITALS (13 sets, daily range): BP systolic 108–150; BP diastolic 47–78; PULSE 60–81; RESP 17–22; TEMP 36.2–36.7; O2SAT 85–96
[2024-03-08 00:10] LABS: Bedside Glucose 197 mg/dL (74-106)
[2024-03-08] MEDS: Albuterol 2.5 MG/3 ML VIAL.NEB. INHALATION (00:10)
[2024-03-08] MEDS: Morphine 2 MG/ML Syringe IV ×3 (00:44→15:16)
[2024-03-08] MEDS: Ampicillin/Sulbactam 3 GM in 0.9% Normal Saline (100mL MB+) 100 ML IV ×4 (05:48→23:42)
[2024-03-08 06:40] LABS: Absolute Lymphocyte Count 0.81 X10^3/uL (0.83-4.51); Absolute Neutrophil Count 3.1 X10^3/uL (2.0-7.7); Basophil# 0.02 X10^3/uL; Basophil% 0.4 % (0-1); Eosinophil# 0.12 X10^3/uL; Eosinophils% 2.7 % (0-5); Hemoglobin 9.8 g/dL (13.0-16.5); Lymphocyte # 0.81 X10^3/ul (0.83-4.51); Lymphocyte % 18.2 % (19-41); Mean Corp Hgb Conc 31.6 g/dL (32-36); Mean Corpuscular Volume 91.7 fL (80-94); Mean Platelet Vol. 10.5 fl (6.2-12.0); Monocyte# 0.36 X10^3/uL; Monocyte% 8.1 % (0-10); NRBC Flagged by Analyzer 0 % (0-5); Neutrophil # 3.13 X10^3/uL (2.7-7.7); Neutrophil % 70.4 % (47-70); Platelet Count 190 K/mm3 (150-450); RBC Distribution Width CV 14.1 % (11.6-14.6); RBC Distribution Width SD 46.1 fl (35.1-43.9); Red Blood Count 3.38 M/mm3 (4.6-6.2); White Blood Count 4.5 K/mm3 (4.4-11.0)
[2024-03-08 06:52] LABS: Anion Gap 5 (5-15); BUN 15 mg/dL (7-18); BUN/Creat Ratio 18.8 RATIO (10-20); Calcium,Total 8.3 mg/dL (8.5-10.1); Chloride 104 mmol/L (98-107); EST Glomerular Filtration Rate 101 mL/min (>60); Est Glom Filt Rate - Afr Amer 122 mL/min (>60); Glucose 223 mg/dL (74-106); Potassium 3.7 mmol/L (3.5-5.1); Sodium Level 138 mmol/L (136-145)
[2024-03-08 08:43] LABS: Bedside Glucose 189 mg/dL (74-106)
--- NOTE | 2024-03-08 09:46 | EX.PCM.CONCC ---
Assessment & Plan Assessment/Plan (1) Abnormal chest CT: PLAN: Plan RECOMMENDATIONS: 1. Continue scheduled bronchodilator therapy. 2. Okay to transition from Unasyn to Augmentin to complete 7-day treatment course. 3. The patient should follow-up in the pulmonary medicine clinic next week as scheduled. At that time, we will assist the patient in coordinating a time when his bronchoscopy can be performed. IMPRESSIONS: 1. Abnormal chest CT with self-limited hemoptysis The patient has a known history of COPD, chronic hypoxemic respiratory failure, obstructive sleep apnea and coronary artery disease status post CABG. He presented to the hospital with shortness of breath and self-limited hemoptysis, which appears to have resolved following cessation of his Plavix and aspirin. CTA chest obtained on admission demonstrated no PE, but did demonstrate significant subtle adenopathy along with a subcarinal mass lesion measuring greater than 5 cm in size along with an ovoid density in the left lower lobe of unclear etiology extending to the pleural surface. CTA chest from February 2023 demonstrated adenopathy as well. However, not nearly as pronounced. Given these findings, it would be reasonable to proceed with bronchoscopic evaluation with mediastinal lymph node sampling via EBUS. However, the patient was on aspirin and Plavix until his admission to the hospital. Therefore, the patient will need to be off of his Plavix for at least 5 days prior to consideration for proceeding with the procedure. The patient has been scheduled next week in the pulmonary medicine office on March 16 at 9:15 AM for a follow-up office visit, at which time, we will coordinate the date and time for the procedure to be completed. If there are no contraindications, it would be reasonable to continue to hold the patient's Plavix for now. 2. History of COPD/chronic hypoxemic respiratory failure/obstructive sleep apnea/history of pulmonary nodularity/coronary artery disease status post CABG/obesity/prior CVA Complicates care, management, recovery and prognosis. Continue supportive measures as noted above. This note was generated with [employer] software. It may contain incorrect words, spelling, and punctuation that were not noted in checking the note before signing. HPI Consult Data Date of Consult: 03/08/24 HPI Narrative Reason for Consultation: Abnormal CT scan HPI Narrative: The patient is a 73-year-old male, with a history as outlined below, who presented to the emergency department on March 07 with shortness of breath and self-limited hemoptysis. The patient is currently being maintained on a combination of aspirin and Plavix on an outpatient basis. I previously saw the patient in January 2023 in the pulmonary medicine clinic due to a history of COPD, chronic hypoxemic respiratory failure, obstructive sleep apnea and bilateral lung nodules. If you recall, the patient initially presented to our office in July 2022 for the evaluation of shortness of breath. The patient has been followed by a caterpillar driver at the [facility], having last been seen in May 2022. He has a known history of coronary artery disease status post CABG, prior CVA, emphysema on chest imaging and small airway hyperreactivity noted on pulmonary function studies. The patient has had questionable response to maintenance inhalers in the past. The patient has reported [id number] smoking history having quit completely in 2006. His last PFTs in October 2021 demonstrated a restrictive ventilatory impairment with small airway bronchodilator response. The patient has been followed in the past due to pulmonary nodules, with a negative PET scan in September 2021. However, the patient has a history of his best this exposure and no family history of mesothelioma. During my last office visit with him in January 2023, it was recommended that the patient obtain follow-up chest imaging in April 2023. It does not appear that the imaging study was ever completed. On presentation to the emergency department, the patient was documented to be afebrile and hemodynamically stable. He was maintaining appropriate oxygen saturations on room air. Initial laboratory evaluation revealed no evidence of a leukocytosis. Hemoglobin was stable at 10.9 g/dL. Platelet count was within normal limits. Coagulation profile revealed an INR of 1.1. Chemistry profile was unremarkable. CTA chest was performed which demonstrated no evidence for pulmonary embolism. There was prominent mediastinal adenopathy noted along with a large subcarinal mass lesion measuring 5.5 cm in size. In addition, there was an ovoid density in the left lower lobe extending to the pleural surface measuring 5.6 cm, of unclear etiology. The patient was subsequently placed on antimicrobials and bronchodilators. He was admitted to the progressive care unit for further management. Overnight, the patient has remained clinically stable. The patient did confirm his compliance with Plavix, prior to his hospitalization. He denies any ongoing hemoptysis. [facility] Medical History (Updated 03/08/24 @ 09:[address] Xavi Schmidt, DO) Chronic pain GERD (gastroesophageal reflux disease) CPAP (continuous positive airway pressure) dependence COPD (chronic obstructive pulmonary disease) ICD (implantable cardioverter-defibrillator) in place Pacemaker Seizures TIA (transient ischemic attack) ICD (implantable cardioverter-defibrillator) in place Left-sided weakness Chest pain History of CAD (coronary artery disease) Syncope DNR (do not resuscitate) DNR (do not resuscitate) discussion Heart failure Lung nodule Obesity EKATERINA (obstructive sleep apnea) Chronic hypoxemic respiratory failure COPD (chronic obstructive pulmonary disease) Anemia Chronic hyperglycemia History of TIAs Conversion reaction Sick sinus syndrome Pacemaker battery depletion Hemiparesis, left Former smoker On home oxygen therapy Pacemaker Congestive heart failure (CHF) Myocardial infarct Chest pain Pulmonary embolism Dysarthria BiPAP (biphasic positive airway pressure) dependence Wears hearing aid in both ears Diabetes Stroke/cerebrovascular accident COPD (chronic obstructive pulmonary disease) History of fractured rib CAD (coronary artery disease) Essential (primary) hypertension Atherosclerotic heart disease [place] coronary artery w/angina pectoris EKATERINA (obstructive sleep apnea) Abnormal EKG DM type 2 (diabetes mellitus, type 2) Chronic respiratory failure Obesity Hyperlipidemia Home Medications ?Medication ?Instructions ?Recorded ?Last Taken ?Type aspirin 81 mg tablet,delayed 81 mg PO DAILY HEART HEALTH 06/11/18 03/06/24 History release atorvastatin 80 mg tablet 80 mg PO QHS CHOLESTEROL 06/11/18 03/06/24 History escitalopram oxalate 10 mg tablet 10 mg PO DAILY DEPRESSION 06/11/18 03/06/24 History finasteride 5 mg tablet 5 mg PO DAILY PROSTATE 06/11/18 03/06/24 History nitroglycerin 0.4 mg sublingual 0.4 mg sublingual Q5M PRN CHEST 07/22/18 01/17/20 Rx tablet PAIN #30 TABLETS pantoprazole 40 mg tablet,delayed 40 mg PO BID GERD 05/18/20 03/06/24 History release carvedilol 25 mg tablet 25 mg PO BID BLOOD PRESSURE 06/22/20 03/06/24 History ranolazine 500 mg tablet,extended 500 mg PO Q12H CHEST PAIN 06/22/20 03/06/24 History release,12 hr tamsulosin 0.4 mg capsule 0.4 mg PO QHS PROSTATE 08/10/20 03/06/24 History clopidogrel 75 mg tablet (Plavix) 75 mg PO DAILY BLOOD THINNER 01/07/21 03/06/24 History albuterol sulfate 2.5 mg/3 mL 2.5 mg inhalation Q6H PRN 12/12/21 03/06/24 History (0.083 %) solution for nebulization SHORTNESS OF BREATH/WHEEZING magnesium oxide 420 mg tablet 420 mg PO BID SUPPLEMENT 12/12/21 03/06/24 History multivitamin with minerals 1 tab PO DAILY SUPPLEMENT 12/12/21 03/06/24 History spironolactone 25 mg tablet 25 mg PO DAILY BLOOD PRESSURE 09/10/22 03/06/24 History (Aldactone) acetaminophen 325 mg tablet 650 mg PO 4X/DAY PRN PAIN 01/27/23 03/06/24 History (Tylenol) cholecalciferol (vitamin D3) 50 100 mcg PO DAILY SUPPLEMENT 03/04/23 03/06/24 History mcg (2,000 unit) capsule (D3-2000) levetiracetam 500 mg tablet 500 mg PO BID seizure 05/27/23 03/06/24 History furosemide 40 mg tablet 40 mg PO DAILY EDEMA 07/19/23 03/06/24 History fluticasone fur. 200 mcg-umeclid 1 inh inhalation DAILY #60 ea 12/14/23 03/06/24 Rx 62.5 mcg-vilant 25 mcg inhalat.powder (Trelegy Ellipta) guaifenesin 100 mg/5 mL oral 200 mg PO TID PRN cough 12/31/23 Unknown History liquid (Adult Tussin Chest Congestion) guaifenesin 600 mg tablet, 600 mg PO BID PRN cough 12/31/23 03/06/24 History extended release 12 hr insulin regular hum U-500 conc 500 130 unit subcut BID DIABETES 12/31/23 03/06/24 History unit/mL(3 mL) subcut pen (Humulin R U-500 (Conc) Insulin Kwikpen) semaglutide 0.25 mg or 0.5 mg (2 0.25 mg subcut FR 12/31/23 03/04/24 History mg/3 mL) subcutaneous pen injector (Ozempic) codeine sulfate 15 mg tablet 15 mg PO Q6H PRN cough 2 days #8 02/14/24 Unknown Rx tabs ondansetron 8 mg disintegrating 8 mg PO Q8H PRN nausea and 02/22/24 Unknown Rx tablet vomiting #15 tabs Allergy/AdvReac Type Severity Reaction Status Date / Time ezetimibe Allergy Unknown Verified 03/07/24 12:45 Fish Containing Products Allergy Unknown Verified 03/07/24 12:45 glyburide Allergy Unknown Verified 03/07/24 12:45 isosorbide Allergy PT UNSURE Verified 03/07/24 12:45 OF REACTION lisinopril Allergy Unknown Verified 03/07/24 12:45 metformin Allergy Nausea Verified 03/07/24 12:45 metoprolol Allergy Unknown Verified 03/07/24 12:45 simvastatin Allergy Unknown Verified 03/07/24 12:45 tramadol Allergy Other Verified 03/07/24 12:45 iron AdvReac Mild Vomiting Verified 03/07/24 12:45 gabapentin AdvReac Other Verified 03/07/24 12:45 Family History Father No problems noted. Surgical History (Updated 03/07/24 @ 18:10 by Jada Velasquez) History of coronary artery stent placement History of cholecystectomy History of knee replacement procedure of left knee History of permanent cardiac pacemaker placement (01/14/21) H/O coronary artery bypass surgery History of coronary artery stent placement Social History household members: spouse Smoking Status: Former smoker details: Unknown substance use type: does not use Physical Exam Const alert and no apparent distress Constitutional Narrative: Obese. Resting comfortably in bed. General Appearance: cooperative HEENT normocephalic and head/scalp atraumatic Eyes EOMs intact bilaterally and conjunctivae normal Neck supple General: trachea midline Chest inspection of chest normal Resp normal respiratory effort Auscultation: diminished lung sounds Cardio regular rate and regular rhythm GI normal to inspection, nondistended, normoactive bowel sounds Extremity no clubbing, cyanosis or edema Skin no rashes or lesions noted Neuro CN's II-XII intact bilaterally, moves all extremities and no focal motor deficits Psych Mood & Affect: flat affect Lab / Micro Data 03/08/24 05:23 03/08/24 05:23 Labs: Laboratory Results - last 24 hr 03/07/24 14:05: WBC 5.2, RBC 3.66 L, Hgb 10.9 L, Hct 33.3 L, MCV 91.0, MCH 29.8, MCHC 32.7, RDW Std Deviation 44.5 H, RDW Coeff of Cinda 13.9, Plt Count 216, MPV 10.1, Immature Gran % (Auto) 0.200, Neut % (Auto) 80.7 H, Lymph % (Auto) 11.1 L, [place] % (Auto) 6.3, Eos % (Auto) 1.3, Baso % (Auto) 0.4, Absolute Neuts (auto) 4.2, Absolute Lymphs (auto) 0.58 L, Nucleated RBC % 0, PT 14.7, INR 1.1, APTT 40.2 H, Sodium 136, Potassium 3.7, Chloride 102, Carbon Dioxide 30.0, Anion Gap 4 L, BUN 11, Creatinine 0.98, Estim Creat Clear Calc 79.57, Est GFR (MDRD) Af Amer 97, Est GFR (MDRD) Non-Af 80, BUN/Creatinine Ratio 11.3, Glucose 249 H, Calcium 8.8, Troponin I High Sens 18 03/07/24 15:07: D-Dimer Quant (PE/DVT) 0.84 H* 03/07/24 16:15: Troponin I High Sens 20 03/07/24 22:29: POC Glucose 197 H 03/08/24 05:23: WBC 4.5, RBC 3.38 L, Hgb 9.8 L, Hct 31.0 L, MCV 91.7, MCH 29.0, MCHC 31.6 L, RDW Std Deviation 46.1 H, RDW Coeff of Cinda 14.1, Plt Count 190, MPV 10.5, Immature Gran % (Auto) 0.200, Neut % (Auto) 70.4 H, Lymph % (Auto) 18.2 L, [place] % (Auto) 8.1, Eos % (Auto) 2.7, Baso % (Auto) 0.4, Absolute Neuts (auto) 3.1, Absolute Lymphs (auto) 0.81 L, Nucleated RBC % 0, Sodium 138, Potassium 3.7, Chloride 104, Carbon Dioxide 29.0, Anion Gap 5, BUN 15, Creatinine 0.80, Estim Creat Clear Calc 97.20, Est GFR (MDRD) Af Amer 122, Est GFR (MDRD) Non-Af 101, BUN/Creatinine Ratio 18.8, Glucose 223 H, Calcium 8.3 L 03/08/24 08:23: POC Glucose 189 H Micro: Microbiology 03/07/24 19:43 Mucosa - Nasopharyngeal Respiratory Panel (PCR) - Final 03/07/24 19:43 Mucosa - Nasopharyngeal Coronavirus COVID-19 PCR - Final Imaging Radiology Impression Chest X-Ray 03/07/24 13:55 IMPRESSION: Stable examination. Electronically Signed: Mick García MD at 14:39 EST , Chest CTA 03/07/24 15:33 IMPRESSION: No demonstrated pulmonary embolism or arterial dissection. Prominent mediastinal adenopathy and large subcarinal mass. Focal pulmonary opacity in the left lower lobe consistent with atelectasis/infiltrate or neoplastic mass. Electronically Signed: Richard Dow MD at 16:50 EST , Charges/Coding Visit Charges Inpatient E&M: 90605 Init Hosp L3
[2024-03-08] MEDS: Furosemide 40 MG Tablet PO (10:52)
[2024-03-08] MEDS: Escitalopram Oxalate 10 MG Tablet PO (10:52)
[2024-03-08] MEDS: Magnesium Chloride 64 MG Delay Rel.Tablet 128 MG PO ×2 (10:52→20:18)
[2024-03-08] MEDS: levETIRAcetam 500 MG Tablet PO ×2 (10:52→20:18)
[2024-03-08] MEDS: guaiFENesin 1,200 MG Tablet 1200 MG PO ×2 (10:53→20:18)
[2024-03-08] MEDS: Ranolazine 500 MG Tablet PO ×2 (10:53→20:18)
[2024-03-08] MEDS: Spironolactone 25 MG Tablet PO (10:53)
[2024-03-08] MEDS: Pantoprazole Sodium 40 MG Tablet PO ×2 (10:53→20:18)
[2024-03-08] MEDS: Carvedilol 25 MG Tablet PO ×2 (10:53→18:34)
[2024-03-08] MEDS: Finasteride 5 MG Tablet PO (10:54)
[2024-03-08] MEDS: Insulin Lispro 100 UNIT/ML INSULN.PEN SC ×2 (12:17→18:30)
[2024-03-08 12:37] LABS: Bedside Glucose 193 mg/dL (74-106)
[2024-03-08] MEDS: Ipratropium/Albuterol Sulfate 3 ML AMPUL.NEB INHALATION ×2 (14:02→21:48)
--- NOTE | 2024-03-08 14:12 | PN_ITS ---
Subjective Subjective Patient seen and examined. He was alert and communicative. He had no complaints. He was admitted with a complaint of shortness of breath. He denies any shortness of breath now. He denies cough, chest pain, palpitations, dizziness, nausea, vomiting or any other symptoms. Review of systems is otherwise negative. He has remained hemodynamically stable. Objective Data Objective Data Vital Signs: Vital Signs Temp Pulse Resp BP Pulse Ox O2 Del Method O2 Flow Rate 98.1 F 68 22 H 140/74 H 96 Room Air 2 03/08/24 07:00 03/08/24 14:09 03/08/24 14:09 03/08/24 07:00 03/08/24 14:09 03/08/24 14:02 03/08/24 07:10 Oxygen Flow Rate (L/min) 2 Oxygen Delivery Method Room Air Weight: 219 lb 2.232 oz Body Mass Index (BMI) 31.4 Intake & Output: Intake and Output for Last 24 Hours 03/06/24 03/07/24 03/08/24 23:59 23:59 23:59 Intake Total 112 / 712 1156 / 1156 Output Total 800 / 800 Balance 112 / 462 356 / 356 Lab / Micro Data 03/08/24 05:23 03/08/24 05:23 Labs: Laboratory Results - last 24 hr 03/07/24 14:05: WBC 5.2, RBC 3.66 L, Hgb 10.9 L, Hct 33.3 L, MCV 91.0, MCH 29.8, MCHC 32.7, RDW Std Deviation 44.5 H, RDW Coeff of Cinda 13.9, Plt Count 216, MPV 10.1, Immature Gran % (Auto) 0.200, Neut % (Auto) 80.7 H, Lymph % (Auto) 11.1 L, [place] % (Auto) 6.3, Eos % (Auto) 1.3, Baso % (Auto) 0.4, Absolute Neuts (auto) 4.2, Absolute Lymphs (auto) 0.58 L, Nucleated RBC % 0, PT 14.7, INR 1.1, APTT 40.2 H, Sodium 136, Potassium 3.7, Chloride 102, Carbon Dioxide 30.0, Anion Gap 4 L, BUN 11, Creatinine 0.98, Estim Creat Clear Calc 79.57, Est GFR (MDRD) Af Amer 97, Est GFR (MDRD) Non-Af 80, BUN/Creatinine Ratio 11.3, Glucose 249 H, Calcium 8.8, Troponin I High Sens 18 03/07/24 15:07: D-Dimer Quant (PE/DVT) 0.84 H* 03/07/24 16:15: Troponin I High Sens 20 03/07/24 22:29: POC Glucose 197 H 03/08/24 05:23: WBC 4.5, RBC 3.38 L, Hgb 9.8 L, Hct 31.0 L, MCV 91.7, MCH 29.0, MCHC 31.6 L, RDW Std Deviation 46.1 H, RDW Coeff of Cinda 14.1, Plt Count 190, MPV 10.5, Immature Gran % (Auto) 0.200, Neut % (Auto) 70.4 H, Lymph % (Auto) 18.2 L, [place] % (Auto) 8.1, Eos % (Auto) 2.7, Baso % (Auto) 0.4, Absolute Neuts (auto) 3.1, Absolute Lymphs (auto) 0.81 L, Nucleated RBC % 0, Sodium 138, Potassium 3.7, Chloride 104, Carbon Dioxide 29.0, Anion Gap 5, BUN 15, Creatinine 0.80, Estim Creat Clear Calc 97.20, Est GFR (MDRD) Af Amer 122, Est GFR (MDRD) Non-Af 101, BUN/Creatinine Ratio 18.8, Glucose 223 H, Calcium 8.3 L 03/08/24 08:23: POC Glucose 189 H 03/08/24 12:13: POC Glucose 193 H Micro: Microbiology 03/07/24 19:43 Mucosa - Nasopharyngeal Respiratory Panel (PCR) - Final 03/07/24 19:43 Mucosa - Nasopharyngeal Coronavirus COVID-19 PCR - Final Radiography Diagnostic Testing: Radiology Impression Chest X-Ray 03/07/24 13:55 IMPRESSION: Stable examination. Electronically Signed: Mick García MD at 14:39 EST , Chest CTA 01/20/25 15:33 IMPRESSION: No demonstrated pulmonary embolism or arterial dissection. Prominent mediastinal adenopathy and large subcarinal mass. Focal pulmonary opacity in the left lower lobe consistent with atelectasis/infiltrate or neoplastic mass. Electronically Signed: Richard Dow MD at 16:50 EST , Physical Exam Const alert and no apparent distress Constitutional Narrative: flat affect General Appearance: cooperative HEENT normocephalic Eyes PERRL and EOMs intact bilaterally Neck no lymphadenopathy, supple and no JVD Lymph Lymphatic: no lymphadenopathy noted Resp Resp Narrative: diminished breath sounds bibasally, no wheezes or crackles. On room air. Cardio regular rate, regular rhythm, S1 normal heart sound, S2 normal heart sound and no murmurs GI normal to inspection, nondistended, normoactive bowel sounds and soft to palpation Extremity normal capillary refill, no clubbing, cyanosis or edema and no calf tenderness General Extremity: no tenderness to palpation of joints or extremities Skin General Skin Exam: no breakdown Neuro CN's II-XII intact bilaterally, no focal motor deficits and no sensory deficits noted Coordination / Balance: [id number] test normal Motor Exam: general weakness Psych thought process normal Mood & Affect: flat affect Assessment & Plan Assessment/Plan (1) Abnormal chest CT: (2) Lung mass: (3) Breath shortness: PLAN: Plan #Hemoptysis and lung mass * Patient was admitted with a complaint of hemoptysis. She had a states shortness of breath. CTA chest was concerning for subcarinal mass with a left lower lobe mass versus neoplasm. * Currently covered for presented with pneumonia as CAT scan could not distinguish between the body of results biopsies of the left lower lobe. * Pulmonology on board. Respiratory panel negative. * Breathing treatments bronchodilators. Titrate oxygen to maintain saturation above 90%. * Discussed with pulmonology, patient will need an EBUS. His Plavix will have to be stopped for about 5 days and he is to follow-up with pulmonology will try to get a pre-CERT for this to be done on outpatient basis. * #CAD: S/p CABG. On statin. Plavix held. Also on Ranexa and Coreg #Type 2 diabetes mellitus: On Lantus. Insulin sliding scale. Accu-Cheks ACHS. #Hypertension: Continue BP meds #COPD: Not in exacerbation. Breathing treatments bronchodilators. 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
--- NOTE | 2024-03-08 14:31 | CASEMGMT ---
KRISTI GERONIMO Assessment Face to Face with patient for initial transition planning/care coordination assessment. KRISTI GERONIMO introduced self and role at [facility], pt voices understanding. Pt is A&Ox4 and is resting comfortably in bed and is calm. Care providers, pharmacy, and demographics verified. Admitting Dx: SOB, Lung Mass, Hemoptysis LACE Strata: 3 PCP: [facility] Specialists: Park Warden [place]; Meka Schmidt, pack out operator; Preferred Pharmacy: [facility] [place]: [place], [facility] Prescription Benefit: [place] LNOK: Lucina (W) Living Arrangements: Patient lives with in a single story home with 1 step to enter. Patient states he is independent at home normally and that his is able to help as needed. Transportation: . Denies concerns DME: Patient has shower chair, BSC, cane, walker, rollator, wheelchair, bipap, nebulizer, pulse ox, continuous BGM and regular BGM with sufficient supplies. Pt states that he has a [facility] but has since returned the equipment. Pt states that he bought a personal oxygen concentrator off his neighbor but does not have any portability. CM to follow for needs. HHC/SNF: Patient has been to [facility], [facility], & [facility] in the past. [facility]. Pt Goal: Return to PLOF Plan: TBD. At this time, the pt denies the need for SNF, HH, or OP Tx. Pt states that HH doesn't really do anything for me. However, pt educated that PT and OT are ordered and will come evaluate the pt today and that CM can follow for recommendations and f/u with the pt as necessary. Pt states understanding and is agreeable to this plan. CM to follow for DC needs. Report given to DRAWBENCH OPERATOR CM. Kate FISHMAN RN, CM
[2024-03-08 17:32] LABS: Bedside Glucose 188 mg/dL (74-106)
[2024-03-08] MEDS: Insulin U-500 UNITS/ML PEN 100 UNITS SC (18:29)
[2024-03-08] MEDS: Atorvastatin Calcium 80 MG Tablet PO (20:18)
[2024-03-08] MEDS: Tamsulosin HCl 0.4 MG Capsule PO (20:18)
[2024-03-08 20:47] LABS: Bedside Glucose 132 mg/dL (74-106)
[2024-03-08] MEDS: oxyCODONE 5 MG Tablet PO (20:54)
[2024-03-08] MEDS: Budesonide Respules 0.5 MG/2 ML AMPUL.NEB. INHALATION (21:48)
[2024-03-09] VITALS (7 sets, daily range): BP systolic 130–144; BP diastolic 68–70; PULSE 60–65; RESP 15–20; TEMP 36.7; O2SAT 95–99
[2024-03-09] MEDS: Ampicillin/Sulbactam 3 GM in 0.9% Normal Saline (100mL MB+) 100 ML IV ×2 (05:59→11:42)
[2024-03-09 06:14] LABS: Absolute Lymphocyte Count 0.77 X10^3/uL (0.83-4.51); Absolute Neutrophil Count 4.9 X10^3/uL (2.0-7.7); Basophil# 0.01 X10^3/uL; Basophil% 0.2 % (0-1); Eosinophil# 0.15 X10^3/uL; Eosinophils% 2.4 % (0-5); Hematocrit 30.6 % (40-54); Hemoglobin 9.9 g/dL (13.0-16.5); Lymphocyte # 0.77 X10^3/ul (0.83-4.51); Lymphocyte % 12.3 % (19-41); Mean Corp Hgb Conc 32.4 g/dL (32-36); Mean Corpuscular Hgb 29.6 pg (27.0-32.0); Mean Corpuscular Volume 91.6 fL (80-94); Mean Platelet Vol. 10.3 fl (6.2-12.0); Monocyte# 0.47 X10^3/uL; Monocyte% 7.5 % (0-10); NRBC Flagged by Analyzer 0 % (0-5); Neutrophil # 4.85 X10^3/uL (2.7-7.7); Neutrophil % 77.1 % (47-70); Platelet Count 200 K/mm3 (150-450); RBC Distribution Width SD 46.1 fl (35.1-43.9); Red Blood Count 3.34 M/mm3 (4.6-6.2); White Blood Count 6.3 K/mm3 (4.4-11.0)
[2024-03-09 06:41] LABS: Anion Gap 4 (5-15); BUN 12 mg/dL (7-18); BUN/Creat Ratio 15.6 RATIO (10-20); Calcium,Total 8.8 mg/dL (8.5-10.1); Chloride 100 mmol/L (98-107); Creatinine, Serum 0.77 mg/dL (0.70-1.30); EST Glomerular Filtration Rate 105 mL/min (>60); Est Glom Filt Rate - Afr Amer 127 mL/min (>60); Glucose 96 mg/dL (74-106); Potassium 3.5 mmol/L (3.5-5.1); Sodium Level 138 mmol/L (136-145)
[2024-03-09] MEDS: Budesonide Respules 0.5 MG/2 ML AMPUL.NEB. INHALATION (07:01)
[2024-03-09] MEDS: Ipratropium/Albuterol Sulfate 3 ML AMPUL.NEB INHALATION ×2 (07:01→13:33)
[2024-03-09 08:32] LABS: Bedside Glucose 126 mg/dL (74-106)
[2024-03-09] MEDS: Magnesium Chloride 64 MG Delay Rel.Tablet 128 MG PO (09:10)
[2024-03-09] MEDS: Carvedilol 25 MG Tablet PO (09:10)
[2024-03-09] MEDS: Furosemide 40 MG Tablet PO (09:10)
[2024-03-09] MEDS: levETIRAcetam 500 MG Tablet PO (09:10)
[2024-03-09] MEDS: Finasteride 5 MG Tablet PO (09:10)
[2024-03-09] MEDS: Escitalopram Oxalate 10 MG Tablet PO (09:10)
[2024-03-09] MEDS: Ranolazine 500 MG Tablet PO (09:10)
[2024-03-09] MEDS: Spironolactone 25 MG Tablet PO (09:10)
[2024-03-09] MEDS: guaiFENesin 1,200 MG Tablet 1200 MG PO (09:10)
[2024-03-09] MEDS: Insulin U-500 UNITS/ML PEN 100 UNITS SC (09:11)
[2024-03-09] MEDS: Pantoprazole Sodium 40 MG Tablet PO (09:13)
--- NOTE | 2024-03-09 10:29 | PCM.PN.INT ---
Assessment & Plan Assessment/Plan (1) Abnormal chest CT: PLAN: Plan RECOMMENDATIONS: 1. Continue scheduled bronchodilator therapy. 2. Okay to transition from Unasyn to Augmentin to complete 7-day treatment course. 3. The patient should follow-up in the pulmonary medicine clinic next week as scheduled. At that time, we will assist the patient in coordinating a time when his bronchoscopy can be performed. IMPRESSIONS: 1. Abnormal chest CT with self-limited hemoptysis The patient has a known history of COPD, chronic hypoxemic respiratory failure, obstructive sleep apnea and coronary artery disease status post CABG. He presented to the hospital with shortness of breath and self-limited hemoptysis, which appears to have resolved following cessation of his Plavix and aspirin. CTA chest obtained on admission demonstrated no PE, but did demonstrate significant subtle adenopathy along with a subcarinal mass lesion measuring greater than 5 cm in size along with an ovoid density in the left lower lobe of unclear etiology extending to the pleural surface. CTA chest from February 2023 demonstrated adenopathy as well. However, not nearly as pronounced. Given these findings, it would be reasonable to proceed with bronchoscopic evaluation with mediastinal lymph node sampling via EBUS. However, the patient was on aspirin and Plavix until his admission to the hospital. Therefore, the patient will need to be off of his Plavix for at least 5 days prior to consideration for proceeding with the procedure. The patient has been scheduled next week in the pulmonary medicine office on March 16 at 9:15 AM for a follow-up office visit, at which time, we will coordinate the date and time for the procedure to be completed. If there are no contraindications, it would be reasonable to continue to hold the patient's Plavix for now. 2. History of COPD/chronic hypoxemic respiratory failure/obstructive sleep apnea/history of pulmonary nodularity/coronary artery disease status post CABG/obesity/prior CVA Complicates care, management, recovery and prognosis. Continue supportive measures as noted above. This note was generated with gdgtation software. It may contain incorrect words, spelling, and punctuation that were not noted in checking the note before signing. Subjective Subjective The patient was seen and examined at the bedside this morning. Events from the last 24 hours have been reviewed. The patient is currently afebrile, hemodynamically stable and maintaining appropriate oxygen saturations on room air. No overnight events were noted by the patient. He is anxious to be discharged home. He again denies any further episodes of hemoptysis. I did review chest imaging that was completed at [facility] in August 2023, which demonstrated bulky mediastinal and subcarinal lymphadenopathy, concerning for a possible lymphoproliferative disorder. Objective Data Objective Data The patient's most recent lab work, culture data and imaging studies have all been personally reviewed. Vital Signs: Vital Signs Temp Pulse Resp BP Pulse Ox O2 Del Method O2 Flow Rate 98.1 F 60 17 133/68 H 98 Bi-pap 2 03/09/24 07:00 03/09/24 07:00 03/09/24 07:00 03/09/24 07:00 03/09/24 07:00 03/09/24 09:00 03/09/24 07:00 Oxygen Flow Rate (L/min) 2 Oxygen Delivery Method Bi-pap Weight: 219 lb 2.232 oz Body Mass Index (BMI) 31.4 Intake & Output: Intake and Output for Last 24 Hours 03/07/24 03/08/24 03/09/24 23:59 23:59 23:59 Intake Total 112 / 712 1268 / 1508 464 / 464 Output Total 800 / 1100 300 / 300 Balance 112 / 462 468 / 408 164 / 164 Lab / Micro Data Attestation: I reviewed the patient's lab results. 03/09/24 05:10 03/09/24 05:10 Labs: Laboratory Results - last 24 hr 03/08/24 12:13: POC Glucose 193 H 03/08/24 17:13: POC Glucose 188 H 03/08/24 20:15: POC Glucose 132 H 03/09/24 05:10: WBC 6.3, RBC 3.34 L, Hgb 9.9 L, Hct 30.6 L, MCV 91.6, MCH 29.6, MCHC 32.4, RDW Std Deviation 46.1 H, RDW Coeff of Cinda 14.0, Plt Count 200, MPV 10.3, Immature Gran % (Auto) 0.500, Neut % (Auto) 77.1 H, Lymph % (Auto) 12.3 L, [place] % (Auto) 7.5, Eos % (Auto) 2.4, Baso % (Auto) 0.2, Absolute Neuts (auto) 4.9, Absolute Lymphs (auto) 0.77 L, Nucleated RBC % 0, Sodium 138, Potassium 3.5, Chloride 100, Carbon Dioxide 33.0 H, Anion Gap 4 L, BUN 12, Creatinine 0.77, Estim Creat Clear Calc 97.20, Est GFR (MDRD) Af Amer 127, Est GFR (MDRD) Non-Af 105, BUN/Creatinine Ratio 15.6, Glucose 96, Calcium 8.8 03/09/24 08:06: POC Glucose 126 H Micro: Microbiology 03/07/24 19:43 Mucosa - Nasopharyngeal Respiratory Panel (PCR) - Final 03/07/24 19:43 Mucosa - Nasopharyngeal Coronavirus COVID-19 PCR - Final Physical Exam Const alert and no apparent distress Constitutional Narrative: Obese. Sitting in bedside recliner. General Appearance: cooperative HEENT normocephalic and head/scalp atraumatic Eyes EOMs intact bilaterally and conjunctivae normal Neck supple General: trachea midline Chest inspection of chest normal Resp normal respiratory effort Auscultation: diminished lung sounds Cardio regular rate and regular rhythm GI normal to inspection, nondistended, normoactive bowel sounds Extremity no clubbing, cyanosis or edema Skin no rashes or lesions noted Neuro CN's II-XII intact bilaterally, moves all extremities and no focal motor deficits Psych Mood & Affect: flat affect Charges/Coding Visit Charges Inpatient E&M: 83029 Subs Hosp L2
[2024-03-09] MEDS: Insulin Lispro 100 UNIT/ML INSULN.PEN SC (11:41)
--- NOTE | 2024-03-09 11:47 | DCINST_ITS ---
Discharge Instructions Diet Discharge Diet: Low fat / Low cholesterol DC O2, CPAP, BIPAP needs Home O2 Discharge instructions: No Dressing / Incision Discharge Activity: Return to Normal Activity Follow Up Care Test Results: Test results from this visit will be discussed in further detail at your follow- up appointment, if applicable. Discharge Plan Admission Admit Date/Time: 03/07/24 18:14 Primary Reason for Your Visit: lung mass Attending Provider: Patito Barnes Primary Care Provider: [facility],[place] Consulting Providers: Belle Holman Instructions Patient Instructions: ED Pulmonary Nodule, Solitary Discharge Orders/Prescriptions Prescriptions: New amoxicillin-pot clavulanate 875-125 mg tablet 1 tab PO BID Qty: 10 0RF Continued levetiracetam 500 mg tablet 500 mg PO BID Trelegy Ellipta 200-62.5-25 mcg blister with device 1 inh inhalation DAILY Qty: 60 6RF atorvastatin 80 MG tablet 80 mg PO QHS finasteride 5 MG tablet 5 mg PO DAILY escitalopram oxalate 10 MG tablet 10 mg PO DAILY nitroglycerin 0.4 MG tablet, sublingual 0.4 mg sublingual Q5M PRN (Reason: CHEST PAIN ) Qty: 30 0RF pantoprazole 40 MG tablet 40 mg PO BID carvedilol 25 MG tablet 25 mg PO BID ranolazine 500 mg Tablet Extended Release 12 Hr 500 mg PO Q12H tamsulosin 0.4 MG capsule 0.4 mg PO QHS magnesium oxide 420 mg Tablet 420 mg PO BID albuterol sulfate 2.5 mg /3 mL (0.083 %) Solution For Nebulization 2.5 mg INHALATION Q6H PRN (Reason: SHORTNESS OF BREATH/WHEEZING ) multivitamin with minerals Tablet 1 tab PO DAILY spironolactone [Aldactone] 25 mg tablet 25 mg PO DAILY acetaminophen [Tylenol] 325 MG tablet 650 mg PO 4X/DAY PRN (Reason: PAIN ) cholecalciferol (vitamin D3) [D3-2000] 50 mcg (2,000 unit) capsule 100 mcg PO DAILY furosemide 40 mg Tablet 40 mg PO DAILY guaifenesin [Adult Tussin Chest Congestion] 100 mg/5 mL liquid 200 mg PO TID PRN (Reason: cough) guaifenesin 600 mg tablet extended release 12hr 600 mg PO BID PRN (Reason: cough) Ozempic 0.25 mg or 0.5 mg (2 mg/3 mL) pen injector 0.25 mg subcut FR Patient Comments: FIRST DOSE 12/25/23 Rx Instructions: for 4 weeks Humulin R U-500 (Conc) Kwikpen 500 unit/mL (3 mL) insulin pen 130 unit subcut BID Rx Instructions: 130 units with breakfast; 130 units with dinner ondansetron 8 mg tablet,disintegrating 8 mg PO Q8H PRN (Reason: nausea and vomiting) Qty: 15 0RF codeine sulfate 15 mg tablet 15 mg PO Q6H PRN (Reason: cough) 2 Days Qty: 8 0RF Held clopidogrel [Plavix] 75 mg tablet 75 mg PO DAILY Hold Instructions: Resume on 03/16/24. hold until after EBUS with pulmonology and cleared to resume it by pulmonology aspirin 81 MG tablet 81 mg PO DAILY Hold Instructions: Resume on 03/16/24. hold until cleared by pulmonology to resume it after EBUS Referrals / Follow Up: Xavi Schmidt DO [Med Staff - Active Staff] - [facility] 1 Week [facility] [Primary [facility] Provider] - Within 1 Week Disposition Disposition (needs filled in before D/C Order can be placed): Home, Self Care
--- NOTE | 2024-03-09 11:54 | PCM.DC.SUM ---
Providers Date of Admission: 03/07/24 Date of Discharge: 03/09/24 Primary Care Physician: [facility] Consultations 03/07/24 19:36 Consult: Plow Mechanic / Pulmonary Medicine Routine Consulting Provider: Pulmonary Medicine chuck Chavez Reason for Consult: Subcarinal mass 5.6cm, ?bronch EMERGENT Consult: No MD Notified: Yes Date Notified: 03/07/24 Time Notified: 19:36 Method of Notification: Text Reason For Visit: SOB, LUNG MASS, HEMOPTYSIS Diagnosis Discharge Diagnosis (1) Abnormal chest CT: Status: Acute Code(s): R93.89 - Abnormal findings on diagnostic imaging of other specified body structures Plan #Hemoptysis and lung mass Patient was admitted with a complaint of hemoptysis. She had a states shortness of breath. CTA chest was concerning for subcarinal mass with a left lower lobe mass versus neoplasm. Currently covered for presented with pneumonia as CAT scan could not distinguish between the body of results biopsies of the left lower lobe. Pulmonology on board. Respiratory panel negative. Breathing treatments bronchodilators. Titrate oxygen to maintain saturation above 90%. Discussed with pulmonology, patient will need an EBUS. His Plavix will have to be stopped for about 5 days and he is to follow-up with pulmonology will try to get a pre-CERT for this to be done on outpatient basis. #CAD: S/p CABG. On statin. Plavix held. Also on Ranexa and Coreg #Type 2 diabetes mellitus: On Lantus. Insulin sliding scale. Accu-Cheks ACHS. #Hypertension: Continue BP meds #COPD: Not in exacerbation. Breathing treatments bronchodilators. 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 #History of sick sinus syndrome s/p pacemaker: Stable #Seizure disorder: On Keppra DVT prophylaxis: SCDs Medications at Discharge Home Medications aspirin 81 mg tablet,delayed release 81 mg PO DAILY HEART HEALTH 06/11/18 atorvastatin 80 mg tablet 80 mg PO QHS CHOLESTEROL 06/11/18 escitalopram oxalate 10 mg tablet 10 mg PO DAILY DEPRESSION 06/11/18 finasteride 5 mg tablet 5 mg PO DAILY PROSTATE 06/11/18 nitroglycerin 0.4 mg sublingual tablet 0.4 mg sublingual Q5M PRN CHEST PAIN #30 TABLETS 07/22/18 pantoprazole 40 mg tablet,delayed release 40 mg PO BID GERD 05/18/20 carvedilol 25 mg tablet 25 mg PO BID BLOOD PRESSURE 06/22/20 ranolazine 500 mg tablet,extended release,12 hr 500 mg PO Q12H CHEST PAIN 06/22/20 tamsulosin 0.4 mg capsule 0.4 mg PO QHS PROSTATE 08/10/20 clopidogrel 75 mg tablet (Plavix) 75 mg PO DAILY BLOOD THINNER 01/07/21 albuterol sulfate 2.5 mg/3 mL (0.083 %) solution for nebulization 2.5 mg inhalation Q6H PRN SHORTNESS OF BREATH/WHEEZING 12/12/21 magnesium oxide 420 mg tablet 420 mg PO BID SUPPLEMENT 12/12/21 multivitamin with minerals 1 tab PO DAILY SUPPLEMENT 12/12/21 spironolactone 25 mg tablet (Aldactone) 25 mg PO DAILY BLOOD PRESSURE 09/10/22 acetaminophen 325 mg tablet (Tylenol) 650 mg PO 4X/DAY PRN PAIN 01/27/23 cholecalciferol (vitamin D3) 50 mcg (2,000 unit) capsule (D3-2000) 100 mcg PO DAILY SUPPLEMENT 03/04/23 levetiracetam 500 mg tablet 500 mg PO BID seizure 05/27/23 furosemide 40 mg tablet 40 mg PO DAILY EDEMA 07/19/23 fluticasone fur. 200 mcg-umeclid 62.5 mcg-vilant 25 mcg inhalat.powder (Trelegy Ellipta) 1 inh inhalation DAILY #60 ea 12/14/23 guaifenesin 100 mg/5 mL oral liquid (Adult Tussin Chest Congestion) 200 mg PO TID PRN cough 12/31/23 guaifenesin 600 mg tablet, extended release 12 hr 600 mg PO BID PRN cough 12/31/23 insulin regular hum U-500 conc 500 unit/mL(3 mL) subcut pen (Humulin R U-500 (Conc) Insulin Kwikpen) 130 unit subcut BID DIABETES 12/31/23 semaglutide 0.25 mg or 0.5 mg (2 mg/3 mL) subcutaneous pen injector (Ozempic) 0.25 mg subcut FR 12/31/23 codeine sulfate 15 mg tablet 15 mg PO Q6H PRN cough 2 days #8 tabs 02/14/24 ondansetron 8 mg disintegrating tablet 8 mg PO Q8H PRN nausea and vomiting #15 tabs 02/22/24 amoxicillin 875 mg-potassium clavulanate 125 mg tablet 1 tab PO BID #10 tabs 03/09/24 Hospital Course Operations None Procedures None Summary of Care Provided Minutes Spent on Discharge: 38 Hospital Course: Patient is a 73-year-old male with past medical history as outlined was admitted through the ED with a complaint of shortness of breath and hemoptysis. Patient was on aspirin and Plavix on outpatient basis and followed up with pulmonology on outpatient basis for COPD and chronic respiratory failure as well as sleep apnea and bilateral lung nodules. He followed up at the [facility] with pulmonology also last being seen in May 2022 for the above-mentioned pulmonary nodules. He came in with complaint of worsening shortness of breath with assisted hemoptysis. On admission he was saturating 93% on room air at rest. D-dimer was 0.84 but CTA did not show any evidence of PE. CTA did show prominent mediastinal lymphadenopathy and enlarged subcarinal mass and opacities in the left lower lobe consistent with atelectasis or infiltrate or neoplastic mass. He was therefore admitted to be managed for presumptive pneumonia and lung mass. He was started on IV antibiotics. Pulmonology was consulted. Per pulmonology note, patient had last been seen by pulmonology in the office in January 2023 and at that time was recommended that patient have a follow-up chest imaging in April 2023 to follow-up on the lung nodules and it did not appear that this was ever done. Patient's Plavix was held. Pulmonology reviewed him and recommended that patient would benefit from an EBUS because he was a [facility] patient this would have to be scheduled on outpatient basis and approval also from the [facility] first. Patient remained stable and was discharged on p.o. Augmentin for 5-day course to complete a 7-day course of antibiotics. He is follow-up with his primary care doctor and follow-up with pulmonology on outpatient basis. His aspirin and Plavix were held on discharge and he is to follow-up with pulmonology for this to be resumed after his EBUS. Patient seen and examined prior to discharge. He felt well and had no complaints. Review of systems otherwise negative. Labs and vitals reviewed. Home medication reviewed and reconciled. Physical Exam Const alert and no apparent distress Constitutional Narrative: flat affect General Appearance: cooperative Orientation / Consciousness: awake HEENT normocephalic, head/scalp atraumatic, hearing grossly normal bilaterally and moist oral mucous membranes Mouth: oral and palatal mucosa normal Eyes PERRL, EOMs intact bilaterally and conjunctivae normal Neck no lymphadenopathy, supple and no JVD Lymph Lymphatic: no lymphadenopathy noted Resp Resp Narrative: diminished breath sounds bibasally, no wheezes or crackles. On room air. Cardio regular rate, regular rhythm, S1 normal heart sound, S2 normal heart sound and no murmurs GI normal to inspection, nondistended, normoactive bowel sounds and soft to palpation Extremity normal to inspection, full ROM, normal capillary refill, no clubbing, cyanosis or edema and no calf tenderness General Extremity: no tenderness to palpation of joints or extremities Skin no rashes or lesions noted General Skin Exam: no breakdown Neuro oriented x3, CN's II-XII intact bilaterally, moves all extremities, no focal motor deficits and no sensory deficits noted Sensorium / Orientation: awake Coordination / Balance: [id number] test normal Motor Exam: general weakness Psych thought process normal Weight / BMI Weight Weight: 219 lb 2.232 oz Body Mass Index (BMI) 31.4 ABG / Lab / Microbiology Data 03/09/24 05:10 03/09/24 05:10 Laboratory: Laboratory Results - last 24 hr 03/08/24 17:13: POC Glucose 188 H 03/08/24 20:15: POC Glucose 132 H 03/09/24 05:10: WBC 6.3, RBC 3.34 L, Hgb 9.9 L, Hct 30.6 L, MCV 91.6, MCH 29.6, MCHC 32.4, RDW Std Deviation 46.1 H, RDW Coeff of Cinda 14.0, Plt Count 200, MPV 10.3, Immature Gran % (Auto) 0.500, Neut % (Auto) 77.1 H, Lymph % (Auto) 12.3 L, [place] % (Auto) 7.5, Eos % (Auto) 2.4, Baso % (Auto) 0.2, Absolute Neuts (auto) 4.9, Absolute Lymphs (auto) 0.77 L, Nucleated RBC % 0, Sodium 138, Potassium 3.5, Chloride 100, Carbon Dioxide 33.0 H, Anion Gap 4 L, BUN 12, Creatinine 0.77, Estim Creat Clear Calc 97.20, Est GFR (MDRD) Af Amer 127, Est GFR (MDRD) Non-Af 105, BUN/Creatinine Ratio 15.6, Glucose 96, Calcium 8.8 03/09/24 08:06: POC Glucose 126 H 03/09/24 11:39: POC Glucose 196 H Microbiology: Microbiology 03/07/24 19:43 Mucosa - Nasopharyngeal Respiratory Panel (PCR) - Final 03/07/24 19:43 Mucosa - Nasopharyngeal Coronavirus COVID-19 PCR - Final D/C Instructions Discharge Diet: Low fat / Low cholesterol Discharge Activity: Return to Normal Activity Weight Bearing Status: Weight bearing as tolerated Call your doctor if you observe: Fever of 101 or Higher, Shortness of breath, Dizziness, Swelling in the ankles and Chest pain DC O2, CPAP, BIPAP Needs PSN CPAP & BiPAP: BiPAP & CPAP Settings per PSN Mode BiPAP 03/09/24 02:47 Bipap Delivery Device Face Mask 03/09/24 02:47 BiPAP Inspiratory Pressure 16 03/09/24 02:47 BiPAP Expiratory Pressure 9 03/09/24 02:47 Total Flow Rate 2 03/09/24 02:47 Home O2 Discharge instructions: No DC home with Oxygen: No Meaningful Use Info Meaningful Use Meaningful Use Diagnoses (Choose all that apply): None applicable Ischemic Stroke Statin Dosing Therapy Reference: STATIN DOSE THERAPY REFERENCE: * Patients > 75 years receive moderate or high dose statin therapy. * Patients 75 years or YOUNGER should receive HIGH intensity statin dose unless contraindicated. You will be required to document reason for non-treatment if statin daily dose does not meet guidelines. HIGH DOSE STATIN THERAPY DAILY Atorvastatin > than or = to 40 mg Rosuvastatin > than or = to 20 mg Amlodipine + Atorvastatin > than or = to 2.5/40 mg Ezetimibe + Simvastatin 10/80 mg Simvastatin 80mg Discharge Plan Admission Admit Date/Time: 03/07/24 18:14 Primary Reason for Your Visit: lung mass Attending Provider: Patito Barnes Primary Care Provider: [facility],[place] Consulting Providers: Belle Holman Instructions Patient Instructions: ED Pulmonary Nodule, Solitary Discharge Orders/Prescriptions Prescriptions: New amoxicillin-pot clavulanate 875-125 mg tablet 1 tab PO BID Qty: 10 0RF Continued levetiracetam 500 mg tablet 500 mg PO BID Trelegy Ellipta 200-62.5-25 mcg blister with device 1 inh inhalation DAILY Qty: 60 6RF atorvastatin 80 MG tablet 80 mg PO QHS finasteride 5 MG tablet 5 mg PO DAILY escitalopram oxalate 10 MG tablet 10 mg PO DAILY nitroglycerin 0.4 MG tablet, sublingual 0.4 mg sublingual Q5M PRN (Reason: CHEST PAIN ) Qty: 30 0RF pantoprazole 40 MG tablet 40 mg PO BID carvedilol 25 MG tablet 25 mg PO BID ranolazine 500 mg Tablet Extended Release 12 Hr 500 mg PO Q12H tamsulosin 0.4 MG capsule 0.4 mg PO QHS magnesium oxide 420 mg Tablet 420 mg PO BID albuterol sulfate 2.5 mg /3 mL (0.083 %) Solution For Nebulization 2.5 mg INHALATION Q6H PRN (Reason: SHORTNESS OF BREATH/WHEEZING ) multivitamin with minerals Tablet 1 tab PO DAILY spironolactone [Aldactone] 25 mg tablet 25 mg PO DAILY acetaminophen [Tylenol] 325 MG tablet 650 mg PO 4X/DAY PRN (Reason: PAIN ) cholecalciferol (vitamin D3) [D3-2000] 50 mcg (2,000 unit) capsule 100 mcg PO DAILY furosemide 40 mg Tablet 40 mg PO DAILY guaifenesin [Adult Tussin Chest Congestion] 100 mg/5 mL liquid 200 mg PO TID PRN (Reason: cough) guaifenesin 600 mg tablet extended release 12hr 600 mg PO BID PRN (Reason: cough) Ozempic 0.25 mg or 0.5 mg (2 mg/3 mL) pen injector 0.25 mg subcut FR Patient Comments: FIRST DOSE 12/25/23 Rx Instructions: for 4 weeks Humulin R U-500 (Conc) Kwikpen 500 unit/mL (3 mL) insulin pen 130 unit subcut BID Rx Instructions: 130 units with breakfast; 130 units with dinner ondansetron 8 mg tablet,disintegrating 8 mg PO Q8H PRN (Reason: nausea and vomiting) Qty: 15 0RF codeine sulfate 15 mg tablet 15 mg PO Q6H PRN (Reason: cough) 2 Days Qty: 8 0RF Held clopidogrel [Plavix] 75 mg tablet 75 mg PO DAILY Hold Instructions: Resume on 03/16/24. hold until after EBUS with pulmonology and cleared to resume it by pulmonology aspirin 81 MG tablet 81 mg PO DAILY Hold Instructions: Resume on 03/16/24. hold until cleared by pulmonology to resume it after EBUS Referrals / Follow Up: Xavi Schmidt DO [Med Staff - Active Staff] - Within 1 Week (attempted to call. follow up withing one week with Dr. Schmidt [phone]) [facility],[place] [Primary Care Provider] - Within 1 Week Disposition Disposition (needs filled in before D/C Order can be placed): Home, Self Care Charges/Coding Visit Charges Inpatient E&M: 45979 Disch Hosp >30min
[2024-03-09 12:10] LABS: Bedside Glucose 196 mg/dL (74-106)
--- NOTE | 2024-03-09 13:10 | CASEMGMT ---
Patient has order for discharge. Patient does not require oxygen at this time, tolerated on room air with therapy. RN CM in to discuss discharge needs with patient. Patient states he did his baseline with therapy and declined HHC or outpatient therapy at discharge. Patient is aware to follow-up with [facility] and [place] [facility]. Patient had no further questions or concerns at this time.
== END 2024-03-09 14:02 | disposition home or self-care (01) | DRG 194 ==
LOC: ED 17:32 → PCU 18:31
PROVIDERS: Admitting Provider Internal Medicine; Emergency Provider Emergency Medicine; Visit Provider Student in an Organized Health Care Education/Training Program
DX: J18.9 Pneumonia, unspecified organism (principal); J44.0 Chronic obstructive pulmonary disease with (acute) lower respiratory infection; J96.11 Chronic respiratory failure with hypoxia; N13.8 Other obstructive and reflux uropathy; R04.2 Hemoptysis; I49.5 Sick sinus syndrome; Z66 Do not resuscitate; I11.0 Hypertensive heart disease with heart failure; I50.9 Heart failure, unspecified; G40.909 Epilepsy, unspecified, not intractable, without status epilepticus; E11.65 Type 2 diabetes mellitus with hyperglycemia; E66.9 Obesity, unspecified; J44.9 Chronic obstructive pulmonary disease, unspecified; G47.33 Obstructive sleep apnea (adult) (pediatric); K21.9 Gastro-esophageal reflux disease without esophagitis; E78.5 Hyperlipidemia, unspecified; Z79.4 Long term (current) use of insulin; I25.119 Atherosclerotic heart disease of native coronary artery with unspecified angina pectoris; Z79.85 Long-term (current) use of injectable non-insulin antidiabetic drugs; G89.29 Other chronic pain; R07.9 Chest pain, unspecified; Z87.891 Personal history of nicotine dependence; R59.0 Localized enlarged lymph nodes; Z79.51 Long term (current) use of inhaled steroids; R91.8 Other nonspecific abnormal finding of lung field; Z95.5 Presence of coronary angioplasty implant and graft; N40.1 Benign prostatic hyperplasia with lower urinary tract symptoms; R91.1 Solitary pulmonary nodule; Z86.73 Personal history of transient ischemic attack (TIA), and cerebral infarction without residual deficits; Z99.81 Dependence on supplemental oxygen; Z68.31 Body mass index [BMI] 31.0-31.9, adult; Z79.82 Long term (current) use of aspirin; Z79.899 Other long term (current) drug therapy; Z79.02 Long term (current) use of antithrombotics/antiplatelets; Z79.01 Long term (current) use of anticoagulants; Z88.8 Allergy status to other drugs, medicaments and biological substances; Z96.652 Presence of left artificial knee joint; Z95.1 Presence of aortocoronary bypass graft; R93.89 Abnormal findings on diagnostic imaging of other specified body structures; Z95.0 Presence of cardiac pacemaker
CPT/HCPCS: 36415; 71046; 71275; 80048; 82962; 84484; 85025; 85379; 85610; 85730; 87633; 87635; 93005; 94002; 94003; 94640; 94668; 97116; 97162; 97166; 97530; 99285; Q9967; A4216; J0295; J2405

== ENCOUNTER 2024-03-16 10:19 | Emergency (ER) | payer OTHER, SELFPAY ==
[2024-03-16 10:21] VITALS: BP 130/65; PULSE 61; RESP 16; TEMP 36.7; O2SAT 94; BMI 31.8
--- NOTE | 2024-03-16 10:26 | ED.RN ---
HX OF SYNCOPAL EPISODES. PT WAS BROUGHT OVER FROM [facility] OFFICE BY EMS. PTS JUST ARRIVED.
[2024-03-16 11:21] VITALS: BP 127/60; PULSE 61; RESP 20; O2SAT 94
--- NOTE | 2024-03-16 11:26 | EX.ED.DYSGE1 ---
HPI History of Present Illness Chief Complaint: Syncope Detail of Chief Complaint: Single episode exiting Dr. Schmidt's office Informant: patient and spouse/S.O. Onset/Context/Timing Onset: Today and Hours Context: Sudden Onset Timing: Intermittent Quality: Syncope Location: Dr. Schmidt's office Current Severity: Gone Maximum Severity: Moderate Worsened by: Patient is a poor informant. is the primary informant. History is li Relieved by: Not applicable Associated Symptoms Associated Symptoms: Nausea Narrative Narrative: Patient is a 73-year-old gentleman. He has history of chronic hypoxemic respiratory failure, COPD, obstructive sleep apnea, CVA and coronary disease. He was recent seen in the emergency room and noted to have a mass subcarinal region. He was seeing Dr. Schmidt to discuss CAT scan findings and workup including biopsy. Patient had been sitting in his office. He stood to exit the room when he had his reported syncopal episode. No other information is available. He has not had black or maroon-colored stool. He has not had blood in his urine. He denies bleeding of his gums with brushing of his teeth etc. He is not on an anticoagulant. He is on an antithrombotic, Plavix Prior similar symptoms: No Recent Illness/Hospitalization: Yes [facility] Medical History Chronic pain GERD (gastroesophageal reflux disease) CPAP (continuous positive airway pressure) dependence COPD (chronic obstructive pulmonary disease) ICD (implantable cardioverter-defibrillator) in place Pacemaker Seizures TIA (transient ischemic attack) ICD (implantable cardioverter-defibrillator) in place Left-sided weakness Chest pain History of CAD (coronary artery disease) Syncope DNR (do not resuscitate) DNR (do not resuscitate) discussion Heart failure Lung nodule Obesity EKATERINA (obstructive sleep apnea) Chronic hypoxemic respiratory failure COPD (chronic obstructive pulmonary disease) Anemia Chronic hyperglycemia History of TIAs Conversion reaction Sick sinus syndrome Pacemaker battery depletion Hemiparesis, left Former smoker On home oxygen therapy Pacemaker Congestive heart failure (CHF) Myocardial infarct Chest pain Pulmonary embolism Dysarthria BiPAP (biphasic positive airway pressure) dependence Wears hearing aid in both ears Diabetes Stroke/cerebrovascular accident COPD (chronic obstructive pulmonary disease) History of fractured rib CAD (coronary artery disease) Essential (primary) hypertension Atherosclerotic heart disease cahto coronary artery w/angina pectoris EKATERINA (obstructive sleep apnea) Abnormal EKG DM type 2 (diabetes mellitus, type 2) Chronic respiratory failure Obesity Hyperlipidemia Home Medications ?Medication ?Instructions ?Recorded ?Last Taken ?Type aspirin 81 mg tablet,delayed 81 mg PO DAILY HEART HEALTH 06/11/18 03/06/24 History release atorvastatin 80 mg tablet 80 mg PO QHS CHOLESTEROL 06/11/18 03/06/24 History escitalopram oxalate 10 mg tablet 10 mg PO DAILY DEPRESSION 06/11/18 03/06/24 History finasteride 5 mg tablet 5 mg PO DAILY PROSTATE 06/11/18 03/06/24 History nitroglycerin 0.4 mg sublingual 0.4 mg sublingual Q5M PRN CHEST 07/22/18 01/17/20 Rx tablet PAIN #30 TABLETS pantoprazole 40 mg tablet,delayed 40 mg PO BID GERD 05/18/20 03/06/24 History release carvedilol 25 mg tablet 25 mg PO BID BLOOD PRESSURE 06/22/20 03/06/24 History ranolazine 500 mg tablet,extended 500 mg PO Q12H CHEST PAIN 06/22/20 03/06/24 History release,12 hr tamsulosin 0.4 mg capsule 0.4 mg PO QHS PROSTATE 08/10/20 03/06/24 History clopidogrel 75 mg tablet (Plavix) 75 mg PO DAILY BLOOD THINNER 01/07/21 03/06/24 History albuterol sulfate 2.5 mg/3 mL 2.5 mg inhalation Q6H PRN 12/12/21 03/06/24 History (0.083 %) solution for nebulization SHORTNESS OF BREATH/WHEEZING magnesium oxide 420 mg tablet 420 mg PO BID SUPPLEMENT 12/12/21 03/06/24 History multivitamin with minerals 1 tab PO DAILY SUPPLEMENT 12/12/21 03/06/24 History spironolactone 25 mg tablet 25 mg PO DAILY BLOOD PRESSURE 09/10/22 03/06/24 History (Aldactone) acetaminophen 325 mg tablet 650 mg PO 4X/DAY PRN PAIN 01/27/23 03/06/24 History (Tylenol) cholecalciferol (vitamin D3) 50 100 mcg PO DAILY SUPPLEMENT 03/04/23 03/06/24 History mcg (2,000 unit) capsule (D3-2000) levetiracetam 500 mg tablet 500 mg PO BID seizure 05/27/23 03/06/24 History furosemide 40 mg tablet 40 mg PO DAILY EDEMA 07/19/23 03/06/24 History fluticasone fur. 200 mcg-umeclid 1 inh inhalation DAILY #60 ea 12/14/23 03/06/24 Rx 62.5 mcg-vilant 25 mcg inhalat.powder (Trelegy Ellipta) guaifenesin 100 mg/5 mL oral 200 mg PO TID PRN cough 12/31/23 Unknown History liquid (Adult Tussin Chest Congestion) guaifenesin 600 mg tablet, 600 mg PO BID PRN cough 12/31/23 03/06/24 History extended release 12 hr insulin regular hum U-500 conc 500 130 unit subcut BID DIABETES 12/31/23 03/06/24 History unit/mL(3 mL) subcut pen (Humulin R U-500 (Conc) Insulin Kwikpen) semaglutide 0.25 mg or 0.5 mg (2 0.25 mg subcut FR 12/31/23 03/04/24 History mg/3 mL) subcutaneous pen injector (Ozempic) codeine sulfate 15 mg tablet 15 mg PO Q6H PRN cough 2 days #8 02/14/24 Unknown Rx tabs ondansetron 8 mg disintegrating 8 mg PO Q8H PRN nausea and 02/22/24 Unknown Rx tablet vomiting #15 tabs amoxicillin 875 mg-potassium 1 tab PO BID #10 tabs 03/09/24 Unknown Rx clavulanate 125 mg tablet Allergy/AdvReac Type Severity Reaction Status Date / Time ezetimibe Allergy Unknown Verified 03/16/24 10:28 Fish Containing Products Allergy Unknown Verified 03/16/24 10:28 glyburide Allergy Unknown Verified 03/16/24 10:28 isosorbide Allergy PT UNSURE Verified 03/16/24 10:28 OF REACTION lisinopril Allergy Unknown Verified 03/16/24 10:28 metformin Allergy Nausea Verified 03/16/24 10:28 metoprolol Allergy Unknown Verified 03/16/24 10:28 simvastatin Allergy Unknown Verified 03/16/24 10:28 tramadol Allergy Other Verified 03/16/24 10:28 iron AdvReac Mild Vomiting Verified 03/16/24 10:28 gabapentin AdvReac Other Verified 03/16/24 10:28 Family History Father No problems noted. Surgical History History of coronary artery stent placement History of cholecystectomy History of knee replacement procedure of left knee History of permanent cardiac pacemaker placement (01/14/21) H/O coronary artery bypass surgery History of coronary artery stent placement Social History household members: spouse Smoking Status: Former smoker details: Unknown substance use type: does not use ROS ROS ED Constitutional Constitutional ED: Denies chills, fever(s), subjective or sweats Eyes Eyes: Reports change in vision bilateral; Denies blurry vision ENT ENT ED: Denies rhinorrhea or sore throat Cardiovascular Cardiovascular: Denies chest pain, palpitations or racing heartbeat Respiratory/Chest Respiratory/Chest: Denies cough, dyspnea or dyspnea on exertion Gastrointestinal Gastrointestinal: Denies abdominal pain, diarrhea, melena or vomiting Genitourinary Genitourinary ED: Denies hematuria Integumentary Denies rash Neurologic Neurologic: Denies weakness Hematologic/Lymphatic Hematologic/Lymphatic: Reports systems reviewed and no addt'l complaints, except as documented EXAM Physical Exam Const Vital Signs: 03/16/24 10:21 03/16/24 10:25 03/16/24 11:21 Temperature 98.0 F Temperature Source Oral Pulse Rate 61 61 Respiratory Rate 16 20 H Respiratory Effort Normal Respiratory Pattern Normal Blood Pressure 130/65 H 127/60 H Blood Pressure Mean 86 82 Pulse Ox 94 94 Oxygen Delivery Method Room Air Room Air Vital signs remarkable slightly elevated blood pressure. Positive well nourished and well developed Constitutional Narrative: BMI 31.9 General Appearance ED: well developed and pallor; Negative for cyanotic or diaphoretic HEENT Reports moist mucous membranes HEENT Narrative: Patient has hearing aids. Nares patent. Posterior pharynx is normal. Eyes Negative for PERRL or EOMs intact bilaterally General Eye ED: Negative for pale conjunctiva or scleral icterus Neck no lymphadenopathy, supple and no JVD Chest Wall Chest Narrative: Healed midline incision noted. Resp normal respiratory effort and clear to auscultation bilaterally Cardio regular rate, regular rhythm, S1 normal heart sound, S2 normal heart sound and no murmurs GI normal to inspection, nondistended, normoactive bowel sounds, non-tender, non-distended and no masses; Negative for hepatosplenomegaly Back/Spine no CVA tenderness Extremity normal to inspection General Extremety ED: Negative for edema or tenderness General Extremity: Negative for edema Neuro oriented x3 and CN's II-XII intact bilaterally Sensorium / Orientation: alert Psych mental status grossly normal Skin no rashes or lesions noted, no wounds and skin turgor normal Skin Narrative: states he is pale. General Skin Exam: pallor; Negative for jaundice MDM MDM MDM Narrative Medical decision making narrative: Reviewed most recent visit. Patient was anemic with a hemoglobin 9.9. CT revealed a subcarinal mass. Since patient has a pacemaker we will have the pacemaker interrogated to determine if he had any significant dysrhythmia that would require further workup otherwise my suspicion is that this is a vagal event. History & Record Review Additional record(s) reviewed:: Prior inpatient record, Prior ED visit and Prior labs Treatment and Re-Evaluation :: Pacemaker was interrogated. Report reveals no abnormality. Therefore we will discharge for vasovagal syncopal episode. Discharge Plan Triage Chief Complaint: Syncope ED Provider: Yadiel Guzman Dx/Rx/DC Orders Clinical Impression: Syncope, vasovagal, COPD (chronic obstructive pulmonary disease), History of coronary artery disease, History of stroke, Lung mass, EKATERINA (obstructive sleep apnea) Instructions: ED Fainting, Vagal Reaction Prescriptions: No Action clopidogrel [Plavix] 75 mg tablet 75 mg PO DAILY levetiracetam 500 mg tablet 500 mg PO BID Trelegy Ellipta 200-62.5-25 mcg blister with device 1 inh inhalation DAILY Qty: 60 6RF atorvastatin 80 MG tablet 80 mg PO QHS aspirin 81 MG tablet 81 mg PO DAILY finasteride 5 MG tablet 5 mg PO DAILY escitalopram oxalate 10 MG tablet 10 mg PO DAILY nitroglycerin 0.4 MG tablet, sublingual 0.4 mg sublingual Q5M PRN (Reason: CHEST PAIN ) Qty: 30 0RF pantoprazole 40 MG tablet 40 mg PO BID carvedilol 25 MG tablet 25 mg PO BID ranolazine 500 mg Tablet Extended Release 12 Hr 500 mg PO Q12H tamsulosin 0.4 MG capsule 0.4 mg PO QHS magnesium oxide 420 mg Tablet 420 mg PO BID albuterol sulfate 2.5 mg /3 mL (0.083 %) Solution For Nebulization 2.5 mg INHALATION Q6H PRN (Reason: SHORTNESS OF BREATH/WHEEZING ) multivitamin with minerals Tablet 1 tab PO DAILY spironolactone [Aldactone] 25 mg tablet 25 mg PO DAILY acetaminophen [Tylenol] 325 MG tablet 650 mg PO 4X/DAY PRN (Reason: PAIN ) cholecalciferol (vitamin D3) [D3-2000] 50 mcg (2,000 unit) capsule 100 mcg PO DAILY furosemide 40 mg Tablet 40 mg PO DAILY guaifenesin [Adult Tussin Chest Congestion] 100 mg/5 mL liquid 200 mg PO TID PRN (Reason: cough) guaifenesin 600 mg tablet extended release 12hr 600 mg PO BID PRN (Reason: cough) Ozempic 0.25 mg or 0.5 mg (2 mg/3 mL) pen injector 0.25 mg subcut FR Patient Comments: FIRST DOSE 12/25/23 Rx Instructions: for 4 weeks Humulin R U-500 (Conc) Kwikpen 500 unit/mL (3 mL) insulin pen 130 unit subcut BID Rx Instructions: 130 units with breakfast; 130 units with dinner ondansetron 8 mg tablet,disintegrating 8 mg PO Q8H PRN (Reason: nausea and vomiting) Qty: 15 0RF amoxicillin-pot clavulanate 875-125 mg tablet 1 tab PO BID Qty: 10 0RF codeine sulfate 15 mg tablet 15 mg PO Q6H PRN (Reason: cough) 2 Days Qty: 8 0RF [facility] Provider[facility] [facility] [Primary Care Provider] - As Needed Print Language: Somali Disposition Disposition: Home, Self Care
[2024-03-16 13:41] VITALS: BP 137/77; PULSE 60; RESP 16; RESP 18; TEMP 36.9; O2SAT 94
== END 2024-03-16 13:43 | disposition home or self-care (01) ==
PROVIDERS: Emergency Provider Emergency Medicine; Visit Provider Emergency Medicine
DX: R55 Syncope and collapse (principal); I11.0 Hypertensive heart disease with heart failure; I50.9 Heart failure, unspecified; J44.9 Chronic obstructive pulmonary disease, unspecified; E11.9 Type 2 diabetes mellitus without complications; D64.9 Anemia, unspecified; Z87.891 Personal history of nicotine dependence; Z95.0 Presence of cardiac pacemaker; Z79.02 Long term (current) use of antithrombotics/antiplatelets; E78.5 Hyperlipidemia, unspecified; I25.10 Atherosclerotic heart disease of native coronary artery without angina pectoris; K21.9 Gastro-esophageal reflux disease without esophagitis; Z86.73 Personal history of transient ischemic attack (TIA), and cerebral infarction without residual deficits; Z79.82 Long term (current) use of aspirin; Z79.85 Long-term (current) use of injectable non-insulin antidiabetic drugs
CPT/HCPCS: 93288; 99285; A4216

== ENCOUNTER 2024-03-27 12:18 | Emergency (ER) | payer OTHER, SELFPAY ==
[2024-03-27] VITALS (8 sets, daily range): BP systolic 121–150; BP diastolic 70–80; PULSE 62–82; RESP 15–25; TEMP 36.6–36.7; O2SAT 92–95; BMI 30.5
--- NOTE | 2024-03-27 12:45 | EKG12_ITS ---
Test Reason : CP Blood Pressure : */* mmHG Vent. Rate : 68 BPM Atrial Rate : 375 BPM P-R Int : * ms QRS Dur : 144 ms QT Int : 488 ms P-R-T Axes : * 262 95 degrees QTcB Int : 518 ms Ventricular-paced rhythm Biventricular pacemaker detected Abnormal ECG Confirmed by Flako Sheikh ([id number]), story editor KENDALL ROCHE ([id number]) on 03/28/2024 11:09:42 AM Referred By: RAPHAEL/ANDRESSA Confirmed By: Flako Sheikh
--- NOTE | 2024-03-27 12:45 | CT_ITS ---
PROCEDURE: CTA CHEST W/WO CONTRAST REASON FOR EXAM: Pain TECHNIQUE: CTA imaging of the chest with intravenous contrast. 3D reconstructions. COMPARISON: None. FINDINGS: Hardware: None. Bulky mediastinal lymphadenopathy particularly in the right paratracheal space measuring up to 3.4 cm. Heart: Normal heart size. No pericardial effusion. RV/LV Diameter Ratio: N/A Thoracic Aorta: No thoracic aortic aneurysm or dissection. Pulmonary Vessels: No evidence of acute pulmonary emboli through the major subsegmental branches. Most Proximal Level of Embolus (if embolus present): N/A Scattered emphysematous change. Bibasilar opacities with relatively confluent consolidation in the left lower lobe. Upper Abdomen: Visualized portions of the upper abdominal viscera are unremarkable. Bones: Bone windows are unremarkable. CT/CTA Chest W/WO Contrast IMPRESSION: No acute thromboembolic disease. Bibasilar opacities with a relatively confluent consolidation at the left base. Correlate for pneumonia. Nonspecific bulky mediastinal lymphadenopathy. Clinical and imaging surveillan ce is advised. One or more dose reduction techniques were used (e.g., Automated exposure contr ol, adjustment of the mA and/or kV according to patient size, use of iterative reconstruction technique). Reading Location: [facility]
--- NOTE | 2024-03-27 12:53 | EX.ED.DYSGE1 ---
HPI <DEV Ceja - Last Filed: 03/27/24 17:08> History of Present Illness Chief Complaint: Chest Pain Narrative Narrative: Patient presenting today with pain across the top of his chest he has had constantly since yesterday, he reports that he has had pain off and on in this spot for a while but it has been more noticeable since yesterday. The pain worsened this morning, prompting him to have his call EMS. It is not worsened with exertion. 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 He is scheduled to have a biopsy this week. He does report a previous history of a DVT, he is not currently on any blood thinners. Denies any recent surgeries/travel/immobilization. He does have a PMH of CAD with previous CABG and pacemaker placement, EKATERINA, HTN, COPD, and CVA. <Dr. Erick Frankel DO - Last Filed: 03/27/24 17:12> Narrative Narrative: Patient presenting today with pain across the top of his chest he has had constantly since yesterday, the pain worsened this morning, prompting him to have his call EMS. 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 He is scheduled to have a biopsy this week. He does report a previous history of a DVT, he is not currently on any blood thinners. Denies any recent surgeries/travel/immobilization. He does have a PMH of CAD with previous CABG and pacemaker placement, EKATERINA, HTN, COPD, and CVA. ED attending note: I evaluated the patient in conjunction with the KEVIN. I agree with his/her statements and above findings. I have personally performed a face to face assessment of the patient and have reviewed the KEVIN Note. I performed a substantive portion of the visit including all aspects of the following. I personally saw the patient performed chart review, physical exam, reviewed labs, imaging (if obtained), and formulated a treatment and management plan. This note was generated with Igeaation software. It may contain incorrect words, spelling, and punctuation that were not noted in review of the chart prior to signing. PFSH <DEV Ceja - Last Filed: 03/27/24 17:08> [facility] Medical History Lung mass Abnormal chest CT Chronic pain GERD (gastroesophageal reflux disease) CPAP (continuous positive airway pressure) dependence COPD (chronic obstructive pulmonary disease) ICD (implantable cardioverter-defibrillator) in place Pacemaker Seizures TIA (transient ischemic attack) Lung mass Cough with hemoptysis ICD (implantable cardioverter-defibrillator) in place Left-sided weakness Chest pain History of CAD (coronary artery disease) Syncope DNR (do not resuscitate) DNR (do not resuscitate) discussion Heart failure Lung nodule Obesity EKATERINA (obstructive sleep apnea) Chronic hypoxemic respiratory failure COPD (chronic obstructive pulmonary disease) Anemia Chronic hyperglycemia History of TIAs Conversion reaction Sick sinus syndrome Pacemaker battery depletion Hemiparesis, left Former smoker On home oxygen therapy Pacemaker Congestive heart failure (CHF) Myocardial infarct Chest pain Pulmonary embolism Dysarthria BiPAP (biphasic positive airway pressure) dependence Wears hearing aid in both ears Diabetes Stroke/cerebrovascular accident COPD (chronic obstructive pulmonary disease) History of fractured rib CAD (coronary artery disease) Essential (primary) hypertension Atherosclerotic heart disease [place] coronary artery w/angina pectoris EKATERINA (obstructive sleep apnea) Abnormal EKG DM type 2 (diabetes mellitus, type 2) Chronic respiratory failure Obesity Hyperlipidemia Home Medications ?Medication ?Instructions ?Recorded ?Last Taken ?Type aspirin 81 mg tablet,delayed 81 mg PO DAILY HEART HEALTH 06/11/18 03/06/24 History release Held on 03/09/24. Instructions: Resume on 03/16/24. hold until cleared by pulmonology to resume it after EBUS atorvastatin 80 mg tablet 80 mg PO QHS CHOLESTEROL 06/11/18 03/06/24 History escitalopram oxalate 10 mg tablet 10 mg PO DAILY DEPRESSION 06/11/18 03/06/24 History finasteride 5 mg tablet 5 mg PO DAILY PROSTATE 06/11/18 03/06/24 History nitroglycerin 0.4 mg sublingual 0.4 mg sublingual Q5M PRN CHEST 07/22/18 01/17/20 Rx tablet PAIN #30 TABLETS pantoprazole 40 mg tablet,delayed 40 mg PO BID GERD 05/18/20 03/06/24 History release carvedilol 25 mg tablet 25 mg PO BID BLOOD PRESSURE 06/22/20 03/06/24 History ranolazine 500 mg tablet,extended 500 mg PO Q12H CHEST PAIN 06/22/20 03/06/24 History release,12 hr tamsulosin 0.4 mg capsule 0.4 mg PO QHS PROSTATE 08/10/20 03/06/24 History clopidogrel 75 mg tablet (Plavix) 75 mg PO DAILY BLOOD THINNER 01/07/21 03/06/24 History Held on 03/09/24. Instructions: Resume on 03/16/24. hold until after EBUS with pulmonology and cleared to resume it by pulmonology albuterol sulfate 2.5 mg/3 mL 2.5 mg inhalation Q6H PRN 12/12/21 03/06/24 History (0.083 %) solution for nebulization SHORTNESS OF BREATH/WHEEZING magnesium oxide 420 mg tablet 420 mg PO BID SUPPLEMENT 12/12/21 03/06/24 History multivitamin with minerals 1 tab PO DAILY SUPPLEMENT 12/12/21 03/06/24 History spironolactone 25 mg tablet 25 mg PO DAILY BLOOD PRESSURE 09/10/22 03/06/24 History (Aldactone) acetaminophen 325 mg tablet 650 mg PO 4X/DAY PRN PAIN 01/27/23 03/06/24 History (Tylenol) cholecalciferol (vitamin D3) 50 100 mcg PO DAILY SUPPLEMENT 03/04/23 03/06/24 History mcg (2,000 unit) capsule (D3-2000) levetiracetam 500 mg tablet 500 mg PO BID seizure 05/27/23 03/06/24 History furosemide 40 mg tablet 40 mg PO DAILY EDEMA 07/19/23 03/06/24 History fluticasone fur. 200 mcg-umeclid 1 inh inhalation DAILY #60 ea 12/14/23 03/06/24 Rx 62.5 mcg-vilant 25 mcg inhalat.powder (Trelegy Ellipta) guaifenesin 100 mg/5 mL oral 200 mg PO TID PRN cough 12/31/23 Unknown History liquid (Adult Tussin Chest Congestion) guaifenesin 600 mg tablet, 600 mg PO BID PRN cough 12/31/23 03/06/24 History extended release 12 hr insulin regular hum U-500 conc 500 130 unit subcut BID DIABETES 12/31/23 03/06/24 History unit/mL(3 mL) subcut pen (Humulin R U-500 (Conc) Insulin Kwikpen) semaglutide 0.25 mg or 0.5 mg (2 0.25 mg subcut FR 12/31/23 03/04/24 History mg/3 mL) subcutaneous pen injector (Ozempic) codeine sulfate 15 mg tablet 15 mg PO Q6H PRN cough 2 days #8 02/14/24 Unknown Rx tabs ondansetron 8 mg disintegrating 8 mg PO Q8H PRN nausea and 02/22/24 Unknown Rx tablet vomiting #15 tabs amoxicillin 875 mg-potassium 1 tab PO BID #10 tabs 03/09/24 Unknown Rx clavulanate 125 mg tablet Allergy/AdvReac Type Severity Reaction Status Date / Time ezetimibe Allergy Unknown Verified 03/27/24 12:19 Fish Containing Products Allergy Unknown Verified 03/27/24 12:19 glyburide Allergy Unknown Verified 03/27/24 12:19 isosorbide Allergy PT UNSURE Verified 03/27/24 12:19 OF REACTION lisinopril Allergy Unknown Verified 03/27/24 12:19 metformin Allergy Nausea Verified 03/27/24 12:19 metoprolol Allergy Unknown Verified 03/27/24 12:19 simvastatin Allergy Unknown Verified 03/27/24 12:19 tramadol Allergy Other Verified 03/27/24 12:19 iron AdvReac Mild Vomiting Verified 03/27/24 12:19 gabapentin AdvReac Other Verified 03/27/24 12:19 Family History Father No problems noted. Surgical History History of coronary artery stent placement History of cholecystectomy History of knee replacement procedure of left knee History of permanent cardiac pacemaker placement (01/14/21) H/O coronary artery bypass surgery History of coronary artery stent placement Social History household members: spouse Smoking Status: Former smoker details: Unknown substance use type: does not use ROS <DEV Ceja - Last Filed: 03/27/24 17:08> ROS ED Constitutional Constitutional ED: Denies chills or fever(s) Cardiovascular Cardiovascular: Reports chest pain; Denies orthopnea or palpitations Respiratory/Chest Respiratory/Chest: Reports cough, dyspnea and dyspnea on exertion; Denies orthopnea, tachypnea or wheezing Gastrointestinal Gastrointestinal: Denies abdominal pain, nausea or vomiting Musculoskeletal Musculoskeletal: Denies arthralgias or myalgias Integumentary Denies rash Neurologic Neurologic: Denies weakness EXAM <DEV Ceja - Last Filed: 03/27/24 17:08> Physical Exam Const Vital Signs: 03/27/24 12:19 03/27/24 12:23 03/27/24 12:52 Temperature 98 F Temperature Source Oral Pulse Rate 66 Respiratory Rate 17 Respiratory Effort Short of Breath Blood Pressure 150/80 H Blood Pressure Mean 103 Pulse Ox 94 95 Oxygen Delivery Method Room Air Room Air 03/27/24 13:18 03/27/24 14:00 03/27/24 15:33 Temperature Temperature Source Pulse Rate 65 70 67 Respiratory Rate 21 H 15 22 H Respiratory Effort Blood Pressure 129/70 H 121/74 H Blood Pressure Mean 89 89 Pulse Ox 94 92 Oxygen Delivery Method Room Air Room Air 03/27/24 15:45 03/27/24 16:00 03/27/24 16:25 Temperature 98.0 F Temperature Source Pulse Rate 62 63 82 Respiratory Rate 23 H 25 H 18 Respiratory Effort Blood Pressure 130/78 H 137/75 H 136/79 H Blood Pressure Mean 94 93 98 Pulse Ox 95 Oxygen Delivery Method Positive well nourished, well developed and no apparent distress General Appearance ED: well developed HEENT Reports normocephalic and head/scalp atraumatic Mouth ED: Yes moist mucous membranes normal Eyes PERRL and EOMs intact bilaterally Neck full ROM and supple Chest Wall inspection of chest normal Resp normal respiratory effort and clear to auscultation bilaterally Cardio regular rate and regular rhythm GI soft to palpation, non-tender, non-distended and no masses Back/Spine normal ROM and normal to inspection Extremity normal to inspection and full ROM Neuro oriented x3, CN's II-XII intact bilaterally, moves all extremities, no focal motor deficits and no sensory deficits noted Sensorium / Orientation: awake and alert Psych mental status grossly normal and thought process normal Skin no rashes or lesions noted and no wounds <Dr. Erick Frankel DO - Last Filed: 03/27/24 17:12> Physical Exam Const Vital Signs: 03/27/24 12:19 03/27/24 12:23 03/27/24 12:52 Temperature 98 F Temperature Source Oral Pulse Rate 66 Respiratory Rate 17 Respiratory Effort Short of Breath Blood Pressure 150/80 H Blood Pressure Mean 103 Pulse Ox 94 95 Oxygen Delivery Method Room Air Room Air 03/27/24 13:18 03/27/24 14:00 03/27/24 15:33 Temperature Temperature Source Pulse Rate 65 70 67 Respiratory Rate 21 H 15 22 H Respiratory Effort Blood Pressure 129/70 H 121/74 H Blood Pressure Mean 89 89 Pulse Ox 94 92 Oxygen Delivery Method Room Air Room Air 03/27/24 15:45 03/27/24 16:00 03/27/24 16:25 Temperature 98.0 F Temperature Source Pulse Rate 62 63 82 Respiratory Rate 23 H 25 H 18 Respiratory Effort Blood Pressure 130/78 H 137/75 H 136/79 H Blood Pressure Mean 94 93 98 Pulse Ox 95 Oxygen Delivery Method [facility] <DEV Ceja - Last Filed: 03/27/24 17:08> [facility] Narrative Medical decision making narrative: Patient presenting today with nonexertional sharp and occasionally dull pain across his upper chest he has had constantly since yesterday. He reports that he has had pain similar to this in the past. When reviewing previous labs, he had a Echo on 02/23/2024 that showed an EF of 45 to 50%. He was recently seen here at the end of February and diagnosed with a left lower lobe mass that is getting biopsied on . Cardiac labs were obtained, his CBC is unremarkable, hemoglobin improved from previous labs, sodium 132, BUN 20, glucose 256. nonsignificant delta troponin. Given history of blood clots in the past, chest CTA was obtained, this shows no PE, he has opacities at the left lower lung base, radiologist recommends correlating for pneumonia. He was treated for pneumonia while admitted at the end of February as it was unclear if his similar CTA finding was a neoplasm or infiltrate. He does admit to a cough that he has chronically, he reports that has not been any worse and he has had no fevers. He has no leukocytosis. Low suspicion for pneumonia. . Given his chest pain, I spoke with Dr. Cullen, he does not feel patient needs emergent stress test or inpatient workup regarding his chest pain. He recommends close outpatient follow-up with his PCP. I did attempt to get ahold of patient's PCP but it is Thursday and I was unable to talk with them. I do feel his chest pain is more atypical in nature, I recommended that the patient call his PCP tomorrow to set up an outpatient stress test, patient and his are agreeable with this plan. He was given oxycodone for his pain and did report some improvement. Return instructions were discussed and patient discharged home in stable condition. Lab Data Attestation: I reviewed the patient's lab results. Labs: Laboratory Results - last 24 hr 03/27/24 03/27/24 12:58 15:09 WBC 5.9 RBC 3.94 L Hgb 11.6 L Hct 35.1 L MCV 89.1 MCH 29.4 MCHC 33.0 RDW Std Deviation 45.5 H RDW Coeff of Cinda 14.2 Plt Count 171 MPV 10.1 Immature Gran % (Auto) 0.300 Neut % (Auto) 76.8 H Lymph % (Auto) 12.8 L Bracken % (Auto) 7.8 Eos % (Auto) 2.0 Baso % (Auto) 0.3 Absolute Neuts (auto) 4.6 Absolute Lymphs (auto) 0.76 L Nucleated RBC % 0 Sodium 132 L Potassium 4.0 Chloride 98 Carbon Dioxide 27.0 Anion Gap 7 BUN 20 H Creatinine 1.00 Estim Creat Clear Calc 76.68 Est GFR (MDRD) Af Amer 94 Est GFR (MDRD) Non-Af 78 BUN/Creatinine Ratio 20.0 Glucose 256 H Calcium 9.2 Troponin I High Sens 14 13 Radiography Diagnostic Testing: Clinical Impression(s) from Imaging Studies Chest CTA 03/27/24 12:45 IMPRESSION: No acute thromboembolic disease. Bibasilar opacities with a relatively confluent consolidation at the left base. Correlate for pneumonia. Nonspecific bulky mediastinal lymphadenopathy. Clinical and imaging surveillance is advised. One or more dose reduction techniques were used (e.g., Automated exposure control, adjustment of the mA and/or kV according to patient size, use of iterative reconstruction technique). Reading Location: [facility] EKG Initial EKG: Comments: 60 bpm, ventricular paced rhythm, no ST elevation <Dr. Erick Frankel, DO - Last Filed: 03/27/24 17:12> MDM Lab Data Labs: Laboratory Results - last 24 hr 03/27/24 03/27/24 12:58 15:09 WBC 5.9 RBC 3.94 L Hgb 11.6 L Hct 35.1 L MCV 89.1 MCH 29.4 MCHC 33.0 RDW Std Deviation 45.5 H RDW Coeff of Cinda 14.2 Plt Count 171 MPV 10.1 Immature Gran % (Auto) 0.300 Neut % (Auto) 76.8 H Lymph % (Auto) 12.8 L Bracken % (Auto) 7.8 Eos % (Auto) 2.0 Baso % (Auto) 0.3 Absolute Neuts (auto) 4.6 Absolute Lymphs (auto) 0.76 L Nucleated RBC % 0 Sodium 132 L Potassium 4.0 Chloride 98 Carbon Dioxide 27.0 Anion Gap 7 BUN 20 H Creatinine 1.00 Estim Creat Clear Calc 76.68 Est GFR (MDRD) Af Amer 94 Est GFR (MDRD) Non-Af 78 BUN/Creatinine Ratio 20.0 Glucose 256 H Calcium 9.2 Troponin I High Sens 14 13 Radiography Diagnostic Testing: Clinical Impression(s) from Imaging Studies Chest CTA 03/27/24 12:45 IMPRESSION: No acute thromboembolic disease. Bibasilar opacities with a relatively confluent consolidation at the left base. Correlate for pneumonia. Nonspecific bulky mediastinal lymphadenopathy. Clinical and imaging surveillance is advised. One or more dose reduction techniques were used (e.g., Automated exposure control, adjustment of the mA and/or kV according to patient size, use of iterative reconstruction technique). Reading Location: [facility] Discharge Plan Triage Chief Complaint: Chest Pain ED Midlevel Provider: Yulissa Chase ED Provider: Erick Frankel Dx/Rx/DC Orders Clinical Impression: Atypical chest pain Instructions: ED Chest Pain, Uncertain Cause Prescriptions: No Action clopidogrel [Plavix] 75 mg tablet 75 mg PO DAILY levetiracetam 500 mg tablet 500 mg PO BID Trelegy Ellipta 200-62.5-25 mcg blister with device 1 inh inhalation DAILY Qty: 60 6RF atorvastatin 80 MG tablet 80 mg PO QHS aspirin 81 MG tablet 81 mg PO DAILY finasteride 5 MG tablet 5 mg PO DAILY escitalopram oxalate 10 MG tablet 10 mg PO DAILY nitroglycerin 0.4 MG tablet, sublingual 0.4 mg sublingual Q5M PRN (Reason: CHEST PAIN ) Qty: 30 0RF pantoprazole 40 MG tablet 40 mg PO BID carvedilol 25 MG tablet 25 mg PO BID ranolazine 500 mg Tablet Extended Release 12 Hr 500 mg PO Q12H tamsulosin 0.4 MG capsule 0.4 mg PO QHS magnesium oxide 420 mg Tablet 420 mg PO BID albuterol sulfate 2.5 mg /3 mL (0.083 %) Solution For Nebulization 2.5 mg INHALATION Q6H PRN (Reason: SHORTNESS OF BREATH/WHEEZING ) multivitamin with minerals Tablet 1 tab PO DAILY spironolactone [Aldactone] 25 mg tablet 25 mg PO DAILY acetaminophen [Tylenol] 325 MG tablet 650 mg PO 4X/DAY PRN (Reason: PAIN ) cholecalciferol (vitamin D3) [D3-2000] 50 mcg (2,000 unit) capsule 100 mcg PO DAILY furosemide 40 mg Tablet 40 mg PO DAILY guaifenesin [Adult Tussin Chest Congestion] 100 mg/5 mL liquid 200 mg PO TID PRN (Reason: cough) guaifenesin 600 mg tablet extended release 12hr 600 mg PO BID PRN (Reason: cough) Ozempic 0.25 mg or 0.5 mg (2 mg/3 mL) pen injector 0.25 mg subcut FR Patient Comments: FIRST DOSE 12/25/23 Rx Instructions: for 4 weeks Humulin R U-500 (Conc) Kwikpen 500 unit/mL (3 mL) insulin pen 130 unit subcut BID Rx Instructions: 130 units with breakfast; 130 units with dinner ondansetron 8 mg tablet,disintegrating 8 mg PO Q8H PRN (Reason: nausea and vomiting) Qty: 15 0RF amoxicillin-pot clavulanate 875-125 mg tablet 1 tab PO BID Qty: 10 0RF codeine sulfate 15 mg tablet 15 mg PO Q6H PRN (Reason: cough) 2 Days Qty: 8 0RF [facility] [Primary Care Provider] - Activity Restrictions/Additional Instructions: Please follow-up with your PCP and/or oral pathologist to schedule a outpatient stress test. Return for any worsening symptoms. Print Language: Kinyarwanda Disposition Disposition: Home, Self Care Discharge Date/Time: 03/27/24 16:27
[2024-03-27 13:07] LABS: Absolute Lymphocyte Count 0.76 X10^3/uL (0.83-4.51); Absolute Neutrophil Count 4.6 X10^3/uL (2.0-7.7); Basophil# 0.02 X10^3/uL; Basophil% 0.3 % (0-1); Eosinophil# 0.12 X10^3/uL; Hematocrit 35.1 % (40-54); Hemoglobin 11.6 g/dL (13.0-16.5); Lymphocyte # 0.76 X10^3/ul (0.83-4.51); Lymphocyte % 12.8 % (19-41); Mean Corpuscular Hgb 29.4 pg (27.0-32.0); Mean Corpuscular Volume 89.1 fL (80-94); Mean Platelet Vol. 10.1 fl (6.2-12.0); Monocyte# 0.46 X10^3/uL; Monocyte% 7.8 % (0-10); NRBC Flagged by Analyzer 0 % (0-5); Neutrophil # 4.55 X10^3/uL (2.7-7.7); Neutrophil % 76.8 % (47-70); Platelet Count 171 K/mm3 (150-450); RBC Distribution Width CV 14.2 % (11.6-14.6); RBC Distribution Width SD 45.5 fl (35.1-43.9); Red Blood Count 3.94 M/mm3 (4.6-6.2); White Blood Count 5.9 K/mm3 (4.4-11.0)
[2024-03-27 13:21] LABS: Anion Gap 7 (5-15); BUN 20 mg/dL (7-18); Calcium,Total 9.2 mg/dL (8.5-10.1); Chloride 98 mmol/L (98-107); EST Glomerular Filtration Rate 78 mL/min (>60); Est Glom Filt Rate - Afr Amer 94 mL/min (>60); Estimated Creatinine Clearance 76.68 ml/min; Glucose 256 mg/dL (74-106); Sodium Level 132 mmol/L (136-145); Troponin-I HS (w/2H Reflex) 14 pg/mL (3.0-78.0)
[2024-03-27] MEDS: oxyCODONE 5 MG Tablet PO (13:48)
[2024-03-27 15:01] LABS: Reflex Troponin-HS? (from REC) Y
[2024-03-27 15:44] LABS: Troponin-I HS 13 pg/mL (3.0-78.0)
== END 2024-03-27 16:27 | disposition home or self-care (01) ==
PROVIDERS: Physician Assistant; Emergency Provider Emergency Medicine; Visit Provider Emergency Medicine
DX: R07.89 Other chest pain (principal); I11.0 Hypertensive heart disease with heart failure; I50.9 Heart failure, unspecified; J44.9 Chronic obstructive pulmonary disease, unspecified; E11.9 Type 2 diabetes mellitus without complications; I25.10 Atherosclerotic heart disease of native coronary artery without angina pectoris; Z86.718 Personal history of other venous thrombosis and embolism; Z87.891 Personal history of nicotine dependence; E78.5 Hyperlipidemia, unspecified; Z95.1 Presence of aortocoronary bypass graft; Z95.0 Presence of cardiac pacemaker; Z86.73 Personal history of transient ischemic attack (TIA), and cerebral infarction without residual deficits; K21.9 Gastro-esophageal reflux disease without esophagitis
CPT/HCPCS: 71275; 80048; 84484; 85025; 93005; 99285; Q9967; A4216

== ENCOUNTER → 2024-03-28 | Outpatient (CLI) | payer OTHER, SELFPAY ==
[2024-03-28 11:46] LABS: Platelet Count 196 K/mm3 (150-450)
[2024-03-28 12:03] LABS: International Normalized Ratio 1.1; Prothrombin Time (Protime)PT. 14.5 SECONDS (11.7-14.9)
[2024-03-28 12:09] LABS: Partial Thromboplast Time 38.9 Seconds (24.1-36.2)
== END | disposition home or self-care (01) ==
PROVIDERS: Referring Provider Nurse Practitioner Family; Visit Provider Nurse Practitioner Family
DX: R91.8 Other nonspecific abnormal finding of lung field (principal)
CPT/HCPCS: 36415; 85049; 85610; 85730

== ENCOUNTER 2024-03-31 08:49 | Day surgery (SDC) | payer OTHER, SELFPAY ==
--- NOTE | 2024-03-28 12:13 | PCM.HP.STD ---
HPI - General HPI Narrative The patient has been followed in the pulmonary medicine clinic on an outpatient basis due to a history of COPD, chronic hypoxemic respiratory failure, obstructive sleep apnea and bilateral lung nodules. If you recall, the patient initially presented to our office in July 2022 for the evaluation of shortness of breath. 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, having last been seen in May 2022. He has a known history of coronary artery disease status post CABG, prior CVA, emphysema on chest imaging and small airway hyperreactivity noted on pulmonary function studies. The patient has had questionable response to maintenance inhalers in the past. The patient has reported [id number] smoking history having quit completely in 2006. His last PFTs in October 2021 demonstrated a restrictive ventilatory impairment with small airway bronchodilator response. The patient has been followed in the past due to pulmonary nodules, with a negative PET scan in September 2021. However, the patient has a history of his best this exposure and no family history of mesothelioma. The patient was subsequently hospitalized in February 2024, during which time, CTA chest was performed which demonstrated prominent mediastinal adenopathy along with a large subcarinal mass measuring approximately 5.5 cm in size. The findings were certainly concerning for an underlying malignancy. Therefore, the patient followed up after his hospitalization in the pulmonary medicine clinic and was referred to undergo mediastinal lymph node sampling via EBUS. Risks and benefits of the proposed procedure were discussed with the patient during his office visit. He was in agreement to proceed. [facility] Medical History (Updated 03/28/24 @ 12:[address] Xavi Schmidt, ) Abnormal chest CT Lung mass Chronic pain GERD (gastroesophageal reflux disease) CPAP (continuous positive airway pressure) dependence COPD (chronic obstructive pulmonary disease) ICD (implantable cardioverter-defibrillator) in place Pacemaker Seizures TIA (transient ischemic attack) Lung mass Cough with hemoptysis ICD (implantable cardioverter-defibrillator) in place Left-sided weakness Chest pain History of CAD (coronary artery disease) Syncope DNR (do not resuscitate) DNR (do not resuscitate) discussion Heart failure Lung nodule Obesity EKATERINA (obstructive sleep apnea) Chronic hypoxemic respiratory failure COPD (chronic obstructive pulmonary disease) Anemia Chronic hyperglycemia History of TIAs Conversion reaction Sick sinus syndrome Pacemaker battery depletion Hemiparesis, left Former smoker On home oxygen therapy Pacemaker Congestive heart failure (CHF) Myocardial infarct Chest pain Pulmonary embolism Dysarthria BiPAP (biphasic positive airway pressure) dependence Wears hearing aid in both ears Diabetes Stroke/cerebrovascular accident COPD (chronic obstructive pulmonary disease) History of fractured rib CAD (coronary artery disease) Essential (primary) hypertension Atherosclerotic heart disease resighini coronary artery w/angina pectoris EKATERINA (obstructive sleep apnea) Abnormal EKG DM type 2 (diabetes mellitus, type 2) Chronic respiratory failure Obesity Hyperlipidemia Home Medications ?Medication ?Instructions ?Recorded ?Last Taken ?Type aspirin 81 mg tablet,delayed 81 mg PO DAILY HEART HEALTH 06/11/18 03/06/24 History release Held on 03/09/24. Instructions: Resume on 03/16/24. hold until cleared by pulmonology to resume it after EBUS atorvastatin 80 mg tablet 80 mg PO QHS CHOLESTEROL 06/11/18 03/06/24 History escitalopram oxalate 10 mg tablet 10 mg PO DAILY DEPRESSION 06/11/18 03/06/24 History finasteride 5 mg tablet 5 mg PO DAILY PROSTATE 06/11/18 03/06/24 History nitroglycerin 0.4 mg sublingual 0.4 mg sublingual Q5M PRN CHEST 07/22/18 01/17/20 Rx tablet PAIN #30 TABLETS pantoprazole 40 mg tablet,delayed 40 mg PO BID GERD 05/18/20 03/06/24 History release carvedilol 25 mg tablet 25 mg PO BID BLOOD PRESSURE 06/22/20 03/06/24 History ranolazine 500 mg tablet,extended 500 mg PO Q12H CHEST PAIN 06/22/20 03/06/24 History release,12 hr tamsulosin 0.4 mg capsule 0.4 mg PO QHS PROSTATE 08/10/20 03/06/24 History clopidogrel 75 mg tablet (Plavix) 75 mg PO DAILY BLOOD THINNER 01/07/21 03/06/24 History Held on 03/09/24. Instructions: Resume on 03/16/24. hold until after EBUS with pulmonology and cleared to resume it by pulmonology albuterol sulfate 2.5 mg/3 mL 2.5 mg inhalation Q6H PRN 12/12/21 03/06/24 History (0.083 %) solution for nebulization SHORTNESS OF BREATH/WHEEZING magnesium oxide 420 mg tablet 420 mg PO BID SUPPLEMENT 12/12/21 03/06/24 History multivitamin with minerals 1 tab PO DAILY SUPPLEMENT 12/12/21 03/06/24 History spironolactone 25 mg tablet 25 mg PO DAILY BLOOD PRESSURE 09/10/22 03/06/24 History (Aldactone) acetaminophen 325 mg tablet 650 mg PO 4X/DAY PRN PAIN 01/27/23 03/06/24 History (Tylenol) cholecalciferol (vitamin D3) 50 100 mcg PO DAILY SUPPLEMENT 03/04/23 03/06/24 History mcg (2,000 unit) capsule (D3-2000) levetiracetam 500 mg tablet 500 mg PO BID seizure 05/27/23 03/06/24 History furosemide 40 mg tablet 40 mg PO DAILY EDEMA 07/19/23 03/06/24 History fluticasone fur. 200 mcg-umeclid 1 inh inhalation DAILY #60 ea 12/14/23 03/06/24 Rx 62.5 mcg-vilant 25 mcg inhalat.powder (Trelegy Ellipta) guaifenesin 100 mg/5 mL oral 200 mg PO TID PRN cough 12/31/23 Unknown History liquid (Adult Tussin Chest Congestion) guaifenesin 600 mg tablet, 600 mg PO BID PRN cough 12/31/23 03/06/24 History extended release 12 hr insulin regular hum U-500 conc 500 130 unit subcut BID DIABETES 12/31/23 03/06/24 History unit/mL(3 mL) subcut pen (Humulin R U-500 (Conc) Insulin Kwikpen) semaglutide 0.25 mg or 0.5 mg (2 0.25 mg subcut FR 12/31/23 03/04/24 History mg/3 mL) subcutaneous pen injector (Ozempic) codeine sulfate 15 mg tablet 15 mg PO Q6H PRN cough 2 days #8 02/14/24 Unknown Rx tabs ondansetron 8 mg disintegrating 8 mg PO Q8H PRN nausea and 02/22/24 Unknown Rx tablet vomiting #15 tabs amoxicillin 875 mg-potassium 1 tab PO BID #10 tabs 03/09/24 Unknown Rx clavulanate 125 mg tablet Allergy/AdvReac Type Severity Reaction Status Date / Time ezetimibe Allergy Unknown Verified 03/27/24 12:19 Fish Containing Products Allergy Unknown Verified 03/27/24 12:19 glyburide Allergy Unknown Verified 03/27/24 12:19 isosorbide Allergy PT UNSURE Verified 03/27/24 12:19 OF REACTION lisinopril Allergy Unknown Verified 03/27/24 12:19 metformin Allergy Nausea Verified 03/27/24 12:19 metoprolol Allergy Unknown Verified 03/27/24 12:19 simvastatin Allergy Unknown Verified 03/27/24 12:19 tramadol Allergy Other Verified 03/27/24 12:19 iron AdvReac Mild Vomiting Verified 03/27/24 12:19 gabapentin AdvReac Other Verified 03/27/24 12:19 Family History Father No problems noted. Surgical History History of coronary artery stent placement History of cholecystectomy History of knee replacement procedure of left knee History of permanent cardiac pacemaker placement (01/14/21) H/O coronary artery bypass surgery History of coronary artery stent placement Social History household members: spouse Smoking Status: Former smoker details: Unknown substance use type: does not use ROS ROS Narrative 10 systems reviewed with pertinent positives as noted in the HPI above. Physical Exam Const alert and no apparent distress General Appearance: cooperative HEENT normocephalic and head/scalp atraumatic Eyes PERRL and EOMs intact bilaterally Neck supple General: trachea midline Resp Auscultation: diminished lung sounds; Negative for rales, rhonchi or wheezes Cardio regular rate and regular rhythm GI normal to inspection, nondistended, normoactive bowel sounds Extremity General Extremity: Negative for clubbing or cyanosis Skin Lesions: no lesions Neuro CN's II-XII intact bilaterally and no focal motor deficits Psych Mood & Affect: flat affect Assessment & Plan Assessment/Plan (1) Abnormal chest CT: PLAN: Recent CTA chest demonstrated a large subcarinal mass with associated adenopathy, all of which is concerning for an underlying malignancy. Therefore, the patient was referred to undergo bronchoscopic evaluation and mediastinal lymph node sampling via EBUS. Risks and benefits were discussed with the patient. He was in agreement to proceed. Preprocedural lab work will be obtained. The patient was instructed to hold his Plavix for 5 days prior to the procedure.
--- NOTE | 2024-03-30 16:00 | PAT.ANE_ITS ---
Pre-Assessment Diagnosis/Proposed Procedure Planned Operative Procedure(s): Endobronchial Ultrasound Anesthesia History Anesthesia History - community service officer coordinator: Anesthesia History - community service officer coordinator Hx Hospitalization Yes: 02/2024 SPITTING UP 03/29/24 17:33 BLOOD Any Problems With Anesthesia No 03/29/24 17:33 Cholinesterase deficiency No 03/29/24 17:33 You/Your Family Experience fever (hyperthermia) with Relationship Recent Exposure to Contagious Disease Does patient have nerve No 03/29/24 17:33 stimulator Patient instructed to have device shut off --Does patient have Pacemaker or ICD? When Was Last Pacemaker Check QUESTION #4 FULL TEXT: You/Your Family Experience fever (hyperthermia) with Anesthesia Last Oral Intake Last Oral intake: Last Oral Intake NPO since Meds taken in AM with sips of water? Meds patient instructed to take am of surgery PONV PONV - community service officer coordinator: PONV - community service officer coordinator Female No 03/29/24 17:33 HX of Motion Sickness No 03/29/24 17:33 HX of N/V After Surgery No 03/29/24 17:33 Non-Smoker Yes 03/29/24 17:33 Duration of Surgery greater Yes 03/29/24 17:33 than 60 minutes Number of Risk Factors 2 03/29/24 17:33 PONV Score Moderate Risk 03/29/24 17:33 Height & Weight Height & Weight: Anesthesia: Height & Weight Height 5 ft 10 in 03/16/24 10:21 Respiratory Assessment Respiratory Assessment - community service officer coordinator: Respiratory Tract Infection Hx - community service officer coordinator Hx Respiratory Tract Infection No 03/29/24 17:33 STOP Sleep Apnea STOP Sleep Apnea - community service officer coordinator: STOP Sleep Apnea - community service officer coordinator Hx Hypertension Yes: ORTHOSTATIC HYPO AT 03/29/24 17:33 TIMES Hx Sleep Apnea Yes 03/29/24 17:33 CPAP No 03/29/24 17:33 BIPAP Yes 03/29/24 17:33 Do you snore loudly (louder than talking or can be heard Do you often feel tired/ fatigued/ sleepy during daytime? Has anyone observed you stop breathing during sleep? STOP Results Positive 03/29/24 17:33 QUESTION #5 FULL TEXT : Do you snore loudly (louder than talking or can be heard through closed doors)? 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 Specify any problems Hx of Preganancy in last 3 N/A 03/29/24 17:33 Months Nurse Filling Out Transfusion MGRIWILLIAM 03/29/24 17:33 & Questions: Date: 03/29/24 03/29/24 17:33 Time: 17:37 03/29/24 17:33 Patient unable to answer at this time (ie. confused, unrespo /Reproduction History /Reproductive History - community service officer coordinator: /Reproductive Hx- community service officer coordinator Hx Now Gestational Age (in weeks): EDC: Hx Hx Para Hx Section SAB No 01/27/23 11:22 [facility] Medical History (Updated 03/29/24 @ 17:47 by Rekha Wasserman) Wears glasses Wears dentures Uses wheelchair Walker as ambulation aid Ambulates with cane Prostate disease High cholesterol History of edema History of echocardiogram Cardiology follow-up encounter Lung mass Abnormal chest CT Chronic pain GERD (gastroesophageal reflux disease) CPAP (continuous positive airway pressure) dependence COPD (chronic obstructive pulmonary disease) ICD (implantable cardioverter-defibrillator) in place Pacemaker Seizures TIA (transient ischemic attack) Lung mass Cough with hemoptysis ICD (implantable cardioverter-defibrillator) in place Left-sided weakness Chest pain History of CAD (coronary artery disease) Syncope DNR (do not resuscitate) DNR (do not resuscitate) discussion Heart failure Lung nodule Obesity EKATERINA (obstructive sleep apnea) Chronic hypoxemic respiratory failure COPD (chronic obstructive pulmonary disease) Anemia Chronic hyperglycemia History of TIAs Conversion reaction Sick sinus syndrome Pacemaker battery depletion Hemiparesis, left Former smoker On home oxygen therapy Pacemaker Congestive heart failure (CHF) Myocardial infarct Chest pain Pulmonary embolism Dysarthria BiPAP (biphasic positive airway pressure) dependence Wears hearing aid in both ears Diabetes Stroke/cerebrovascular accident COPD (chronic obstructive pulmonary disease) History of fractured rib CAD (coronary artery disease) Essential (primary) hypertension Atherosclerotic heart disease mentasta coronary artery w/angina pectoris EKATERINA (obstructive sleep apnea) Abnormal EKG DM type 2 (diabetes mellitus, type 2) Chronic respiratory failure Obesity Hyperlipidemia Home Medications ?Medication ?Instructions ?Recorded ?Last Taken ?Type aspirin 81 mg tablet,delayed 81 mg PO DAILY HEART HEAL TH 06/11/18 03/06/24 History release Held on 03/09/24. Instructions: Resume on 03/16/24. hold until cleared by pulmonology to resume it after EBUS atorvastatin 80 mg tablet 80 mg PO QHS CHOLESTEROL 03/06/24 History escitalopram oxalate 10 mg tablet 10 mg PO DAILY DEPRE SSION 06/11/18 03/06/24 History finasteride 5 mg tablet 5 mg PO DAILY PROSTATE 06/1103/06/24 History nitroglycerin 0.4 mg sublingual 0.4 mg sublingual Q5M PRN CHEST 07/22/18 01/17/20 Rx tablet PAIN #30 TABLETS pantoprazole 40 mg tablet,delayed 40 mg PO BID GERD 03/06/24 History release carvedilol 25 mg tablet 25 mg PO BID BLOOD PRESSURE 06/22/20 03/06/24 History ranolazine 500 mg tablet,extended 500 mg PO Q12H CHEST PAIN 06/22/20 03/06/24 History release,12 hr tamsulosin 0.4 mg capsule 0.4 mg PO QHS PROSTATE 08/1003/06/24 History clopidogrel 75 mg tablet (Plavix) 75 mg PO DAILY BLOOD THINNER 01/07/21 03/06/24 History Held on 03/09/24. Instructions: Resume on 03/16/24. hold until after EBUS with pulmonology and cleared to resume it by pulmonology albuterol sulfate 2.5 mg/3 mL 2.5 mg inhalation Q6H VA N 12/12/21 03/06/24 History (0.083 %) solution for nebulization SHORTNESS OF BREAT H/WHEEZING magnesium oxide 420 mg tablet 420 mg PO BID SUPPLEMENT 12/12/21 03/06/24 History multivitamin with minerals 1 tab PO DAILY SUPPLEMENT 1 03/06/24 History spironolactone 25 mg tablet 25 mg PO DAILY BLOOD PRESS URE 09/10/22 03/06/24 History (Aldactone) acetaminophen 325 mg tablet 650 mg PO 4X/DAY PRN PAIN 01/27/23 03/06/24 History (Tylenol) cholecalciferol (vitamin D3) 50 100 mcg PO DAILY SUPPL EMENT 03/04/23 03/06/24 History mcg (2,000 unit) capsule (D3-1999) levetiracetam 500 mg tablet 500 mg PO BID seizure 05/1703/06/24 History furosemide 40 mg tablet 40 mg PO DAILY EDEMA 4 03/06/24 History fluticasone fur. 200 mcg-umeclid 1 inh inhalation TATY Y #60 ea 12/14/23 03/06/24 Rx 62.5 mcg-vilant 25 mcg inhalat.powder (Trelegy Ellipta) guaifenesin 100 mg/5 mL oral 200 mg PO TID PRN cough 1 03/01/23 Unknown History liquid (Adult Tussin Chest Congestion) guaifenesin 600 mg tablet, 600 mg PO BID PRN cough 03/06/24 History extended release 12 hr insulin regular hum U-500 conc 500 130 unit subcut BID DIABETES 12/31/23 03/06/24 History unit/mL(3 mL) subcut pen (Humulin R U-500 (Conc) Insulin Kwikpen) codeine sulfate 15 mg tablet 15 mg PO Q6H PRN cough 2 days #8 02/14/24 Unknown Rx tabs ondansetron 8 mg disintegrating 8 mg PO Q8H PRN nausea and 02/22/24 Unknown Rx tablet vomiting #15 tabs Allergy/AdvReac Type Severity Reaction Status Date / Time ezetimibe Allergy Unknown Verified 03/29/24 17:17 Fish Containing Products Allergy Unknown Verified 03/29/24 17:17 glyburide Allergy Unknown Verified 03/29/24 17:17 isosorbide Allergy PT UNSURE Verified 03/29/24 17:17 OF REACTION lisinopril Allergy Unknown Verified 03/29/24 17:17 metformin Allergy Nausea Verified 03/29/24 17:17 metoprolol Allergy Unknown Verified 03/29/24 17:17 simvastatin Allergy Unknown Verified 03/29/24 17:17 tramadol Allergy Other Verified 03/29/24 17:17 iron AdvReac Mild Vomiting Verified 03/29/24 17:17 gabapentin AdvReac Other Verified 03/29/24 17:17 Family History Father No problems noted. Surgical History (Updated 03/29/24 @ 17:47 by Rekha Wasserman) History of cardiac catheterization History of colonoscopy History of surgery History of coronary artery stent placement History of cholecystectomy History of knee replacement procedure of left knee History of permanent cardiac pacemaker placement (01/14/21) H/O coronary artery bypass surgery History of coronary artery stent placement Social History household members: spouse Smoking Status: Former smoker details: Unknown substance use type: does not use Audit: Pertinent Findings Pertinent Findings Stress test pertinent findings: 01/29/2023 no evidence of ischemia evidence of prior apical myocardial infarction EF 44% Echo (EF%) pertinent findings: 08/12/2023 EF 45 to 50% apical hypokinesis Heart catheterization pertinent findings: 2017 EF 55% mentasta multivessel coronary artery disease bypass grafts are patent Consult pertinent findings: [place] history of coronary artery disease with chronic angina COPD on supplemental O2 status post CABG times 05/2008 cath with patent grafts 2018 cath continue risk factor modification Recommendation Anesthesia Recommendation Anesthesia recommendation: OPTIMIZED for anesthesia
[2024-03-31] VITALS (9 sets, daily range): BP systolic 127–149; BP diastolic 59–88; PULSE 68–81; RESP 16–20; TEMP 36.4–37.6; O2SAT 92–98; BMI 30.3
--- NOTE | 2024-03-31 | IMM_PTH ---
PATIENT: GIOVANNY LEONARDO LOC: EN U#:[id number] AGE/SX: 73/M ROOM: RE03/31/[address]: Dr. Xavi Schmidt DO : 1950 BED: DIS: 03/31/2024 SPEC #: [id number] RECD: 04/01/24 13:02 STATUS: ROLANDO REQ #: [id number] ADRIEL: 03/31/24 00:[address]: Xavi Schmidt DEPT: IMMUNOHISTOCHEMISTRY RECD BY: Robert Engle ENTERED: 04/01/24 13:03 SP TYPE: IMMUNO OTHR DR: [facility] Tissues: G - Lung, NOS Procedures: Synapto (add) NAPSIN A (add) CD45 (add) CD56 (add) CHROMO (add) CK20 (add) CK7 (add) CK8 (add) KI-67 (add) P53 (add) TTF1 (add) Pankeratin (initial) PHYSICIAN & INSTITUTION [address] [address] SPECIMEN INFORMATION: Tissue Source: G- EBUS Clinical Info: Abnormal chest CT Specimen Number: [id number] CPT code: 69900,[id number] METHODOLOGY: Deparaffinized sections of prefer/formalin-fixed tissue or PAP/DQ stained slides are incubated with monoclonal/polyclonal antibodies/oligonucleotide probes. Localization is made via biotin free immunoperoxidase method. Appropriate controls are performed and reacted as expected. Results on target cell population are indicated in the following table: RESULTS: ANTIBODY / CLONE RESULT Block G AE1-3 (AE1/AE3/PCK26) positive CK7 (OV-TL12/30) negative CK8 (30jhdiX67) positive CK20 (KS20.8) negative CD45 (RP2/18) negative CD56 (123C3.D5) positive, weak, rare cells Chromo (LK2H10) negative Synapto (polyclonal) positive, weak, rare cells TTF-1 (8G7G3/1) negative Napsin A (Rabbit Polyclonal) negative P53 (DO-7) negative (null pattern) Ki-67 (30-9) positive, high, ~ >95% These tests were developed and their performance characteristics determined by [facility]. They may not have been cleared or approved by the U.S. Food and Drug Administration. The FDA has determined that such clearance or approval is not necessary. The above immunohistochemical/dualISH markers are ordered and reviewed by the Pathologist. INTERPRETATION: G. EBUS, endobronchial ultrasound: Highly atypical cells present, suspicious for small cell carcinoma. This case has been reviewed in consultation with Dr. Sharp who concurs with the above diagnosis. [email or web address] 04/04/2024
--- NOTE | 2024-03-31 | FLU_PTH ---
PATIENT: GIOVANNY LEONARDO LOC: EN U#:[id number] AGE/SX: 73/M ROOM: RE03/31/[address]: Dr. Xavi Schmidt DO : 1950 BED: DIS: 03/31/2024 SPEC #: [id number] RECD: 03/31/24 12:08 STATUS: ROLANDO MITESH #: [id number] ADRIEL: 03/31/24 00:[address]: Xavi Schmidt DEPT: CYTOLOGY RECD BY: Mook Benito ENTERED: 03/31/24 12:09 SP TYPE: Fluid OTHR DR: [facility] Tissues: A - Lung, NOS B - Lung, NOS C - Lung, NOS D - Lung, NOS E - Lung, NOS F - Lung, NOS G - Lung, NOS Procedures: Special Stain Group II Surgery Specimen Level IV Cytospin Fluid HEADER OPERATION: Endobronchial ultrasound PRE-OP DIAGNOSIS: Abnormal chest CT TISSUE SUBMITTED: A-G- EBUS DIAGNOSIS CYTOLOGY A. EBUS, TBNA, site 7#1 (smears): Negative for malignant cells. Specimen consists of respiratory epithelial cells and a few lymphocytes. B. EBUS, TBNA, site 7#2 (smears): Adequate for evaluation. Negative for malignant cells. Specimen consists of respiratory epithelial cells and lymphocytes. C. EBUS, TBNA, site 7#3 (smears): Negative for malignant cells. Specimen consists of respiratory epithelial cells and a few lymphocytes. D. EBUS, TBNA, site 7#4 (smears): Atypical, degenerated cells noted suspicious for malignancy. E. EBUS, TBNA, site 7#5 (smears): Negative for malignant cells. Specimen consists of respiratory epithelial cells and a few lymphocytes. F. EBUS, TBNA, site 7#6 (smears): Negative for malignant cells. Specimen consists of respiratory epithelial cells and a few lymphocytes. G. EBUS, TBNA, site 7 fluid (cytospins and cellblock): Highly atypical cells with degeneration are noted, suspicious for small cell carcinoma. See comment. 04/04/2024 COMMENT G. Immunohistochemistry ([id number]) supports the above diagnosis. Flow cytometry study from [facility] was cancelled due to virtually absent viable events. Correlation with clinical, radiologic findings and appropriate follow up are necessary. This case has been reviewed in consultation with Dr. Sharp who concurs with the above diagnosis. IDC:PW CYTOLOGY STUDY Slides are reviewed. CYTOLOGY GROSS A. Received labeled with the patient's name and and designated EBUS, TBNA, site 7 #1. The specimen consists of two stained smears. B. Received labeled with the patient's name and and designated EBUS, TBNA, site 7 #2. The specimen consists of two stained smears. C. Received labeled with the patient's name and and designated EBUS, TBNA, site 7 #3. The specimen consists of two stained smears. D. Received labeled with the patient's name and and designated EBUS, TBNA, site 7 #4. The specimen consists of two stained smears. E. Received labeled with the patient's name and and designated EBUS, TBNA, site 7 #5. The specimen consists of two stained smears. F. Received labeled with the patient's name and and designated EBUS, TBNA, site 7 #6. The specimen consists of two stained smears. G. Received in RPMI is 20 ml of pink, needle rinsed fluid labeled with the patient's name and and designated EBUS, TBNA, site 7. The specimen is submitted for cell block preparation. 03/31/2024 TC:0CPT:[id number]
[2024-03-31 09:45] LABS: Bedside Glucose 241 mg/dL (74-106)
--- NOTE | 2024-03-31 10:10 | PCM.PRE.AN2 ---
ASA Classification* ASA Classification ASA Classification: 4 Assessment & Plan Anesthesia* Anesthesia Assessment Anesthesia Assessment: Discussed sedation and/or anesthesia options, risks, benefits, and alternatives with patient/parents/legal guardian/POA. Questions invited. The patient/parents/legal guardian/POA seems to understand and agrees to proceed with anesthesia plan. Reviewed the physical assessment, medical history, allergy history and patient home medications list prior to surgery/procedure/anesthetic and documented any changes. Performed airway and anesthesia risk assessments. Anesthesia Type Anesthesia Type: General History Source History Obtained from:: Patient and Chart Anesthesia Focused Assessment* Temperature: 97.6 F Pulse Rate: 68 Blood Pressure: 130/59 Respiratory Rate: 18 Pulse Ox: 98 Oxygen Delivery Method: Room Air Airway Assessment Mouth opens: >3 cm Mallampati Score: IV Teeth Condition: Dentures (Patient has full upper and lower dentures. They are out.) Neck Range of motion (ROM): Limited ROM Focused Labs Anesthesia Preop lab: CBC WBC 5.9 K/mm3 (4.4-11.0) 03/27/24 12:58 03/27/24 RBC 3.94 M/mm3 (4.6-6.2) L 03/27/24 12:58 03/27/24 Hgb 11.6 g/dL (13.0-16.5) L 03/27/24 12:58 03/27/24 Hct 35.1 % (40-54) L 03/27/24 12:58 03/27/24 Plt Count 196 K/mm3 (150-450) 03/28/24 11:36 03/28/24 CHEMISTRY Potassium 4.0 mmol/L (3.5-5.1) 03/27/24 12:58 03/27/24 Sodium 132 mmol/L (136-145) L 03/27/24 12:58 03/27/24 Magnesium 1.9 mg/dL (1.6-2.6) 09/05/23 17:44 09/05/23 Phosphorus 3.8 mg/dL (2.5-4.9) 03/21/23 05:40 03/21/23 BUN 20 mg/dL (7-18) H 03/27/24 12:58 03/27/24 Creatinine 1.00 mg/dL (0.70-1.30) 03/27/24 12:58 03/27/24 Glucose 256 mg/dL (74-106) H 03/27/24 12:58 03/27/24 POC Glucose 241 mg/dL (74-106) H 03/31/24 09:19 03/31/24 TSH 3.88 uIU/mL (0.358-3.74) H 04/01/23 22:12 04/01/23 COAG PT 14.5 SECONDS (11.7-14.9) 03/28/24 11:36 03/28/24 Pre-Assessment Diagnosis/Proposed Procedure Planned Operative Procedure(s): Endobronchial Ultrasound Anesthesia History Anesthesia History - seasoning sprayer: Anesthesia History - seasoning sprayer Hx Hospitalization Yes: 02/2024 SPITTING UP 03/29/24 17:33 BLOOD Any Problems With Anesthesia No 03/29/24 17:33 Cholinesterase deficiency No 03/29/24 17:33 You/Your Family Experience fever (hyperthermia) with Relationship Recent Exposure to Contagious No 03/31/24 09:13 Disease Does patient have nerve No 03/29/24 17:33 stimulator Patient instructed to have device shut off --Does patient have Pacemaker Yes 03/31/24 09:13 or ICD? When Was Last Pacemaker Check QUESTION #4 FULL TEXT: You/Your Family Experience fever (hyperthermia) with Anesthesia Last Oral Intake Last Oral intake: Last Oral Intake NPO since 18:30 03/31/24 09:13 Meds taken in AM with sips of Yes 03/31/24 09:13 water? Meds patient instructed to DOS CARVEDILOL, PANTOPRAZOLE 03/31/24 09:13 take am of surgery , ELIPTA, RANOLAZINE LAST DOSE ASPRIN 03/26, LAST DOSE PLAVIX 03/26 PONV PONV - seasoning sprayer: PONV - seasoning sprayer Female No 03/29/24 17:33 HX of Motion Sickness No 03/29/24 17:33 HX of N/V After Surgery No 03/29/24 17:33 Non-Smoker Yes 03/29/24 17:33 Duration of Surgery greater Yes 03/29/24 17:33 than 60 minutes Number of Risk Factors 2 03/29/24 17:33 PONV Score Moderate Risk 03/29/24 17:33 Height & Weight Height & Weight: Anesthesia: Height & Weight Height 5 ft 10 in 03/31/24 09:13 Weight: 96 kg 03/31/24 09:13 Body Mass Index (BMI) 30.3 03/31/24 09:13 Respiratory Assessment Respiratory Assessment - seasoning sprayer: Respiratory Tract Infection Hx - seasoning sprayer Hx Respiratory Tract Infection No 03/29/24 17:33 STOP Sleep Apnea STOP Sleep Apnea - seasoning sprayer: STOP Sleep Apnea - seasoning sprayer Hx Hypertension Yes: ORTHOSTATIC HYPO AT 03/29/24 17:33 TIMES Hx Sleep Apnea Yes 03/29/24 17:33 CPAP No 03/29/24 17:33 BIPAP Yes 03/29/24 17:33 Do you snore loudly (louder than talking or can be heard Do you often feel tired/ fatigued/ sleepy during daytime? Has anyone observed you stop breathing during sleep? STOP Results Positive 03/29/24 17:33 QUESTION #5 FULL TEXT : Do you snore loudly (louder than talking or can be heard through closed doors)? 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 Specify any problems Hx of Preganancy in last 3 N/A 03/29/24 17:33 Months Nurse Filling Out Transfusion MGRIFFITH 03/29/24 17:33 & Questions: Date: 03/29/24 03/29/24 17:33 Time: 17:37 03/29/24 17:33 Patient unable to answer at this time (ie. confused, unrespo /Reproduction History /Reproductive History - seasoning sprayer: /Reproductive Hx- seasoning sprayer Hx Now Gestational Age (in weeks): EDC: Hx Hx Para Hx Section SAB No 01/27/23 11:22 [facility] Medical History Wears glasses Wears dentures Uses wheelchair Walker as ambulation aid Ambulates with cane Prostate disease High cholesterol History of edema History of echocardiogram Cardiology follow-up encounter Lung mass Abnormal chest CT Chronic pain GERD (gastroesophageal reflux disease) CPAP (continuous positive airway pressure) dependence COPD (chronic obstructive pulmonary disease) ICD (implantable cardioverter-defibrillator) in place Pacemaker Seizures TIA (transient ischemic attack) Lung mass Cough with hemoptysis ICD (implantable cardioverter-defibrillator) in place Left-sided weakness Chest pain History of CAD (coronary artery disease) Syncope DNR (do not resuscitate) DNR (do not resuscitate) discussion Heart failure Lung nodule Obesity EKATERINA (obstructive sleep apnea) Chronic hypoxemic respiratory failure COPD (chronic obstructive pulmonary disease) Anemia Chronic hyperglycemia History of TIAs Conversion reaction Sick sinus syndrome Pacemaker battery depletion Hemiparesis, left Former smoker On home oxygen therapy Pacemaker Congestive heart failure (CHF) Myocardial infarct Chest pain Pulmonary embolism Dysarthria BiPAP (biphasic positive airway pressure) dependence Wears hearing aid in both ears Diabetes Stroke/cerebrovascular accident COPD (chronic obstructive pulmonary disease) History of fractured rib CAD (coronary artery disease) Essential (primary) hypertension Atherosclerotic heart disease [place] coronary artery w/angina pectoris EKATERINA (obstructive sleep apnea) Abnormal EKG DM type 2 (diabetes mellitus, type 2) Chronic respiratory failure Obesity Hyperlipidemia Home Medications ?Medication ?Instructions ?Recorded ?Last Taken ?Type aspirin 81 mg tablet,delayed 81 mg PO DAILY HEART HEALTH 06/11/18 03/06/24 History release Held on 03/09/24. Instructions: Resume on 03/16/24. hold until cleared by pulmonology to resume it after EBUS atorvastatin 80 mg tablet 80 mg PO QHS CHOLESTEROL 06/11/18 03/06/24 History escitalopram oxalate 10 mg tablet 10 mg PO DAILY DEPRESSION 06/11/18 03/06/24 History finasteride 5 mg tablet 5 mg PO DAILY PROSTATE 06/11/18 03/06/24 History nitroglycerin 0.4 mg sublingual 0.4 mg sublingual Q5M PRN CHEST 07/22/18 01/17/20 Rx tablet PAIN #30 TABLETS pantoprazole 40 mg tablet,delayed 40 mg PO BID GERD 05/18/20 03/06/24 History release carvedilol 25 mg tablet 25 mg PO BID BLOOD PRESSURE 06/22/20 03/06/24 History ranolazine 500 mg tablet,extended 500 mg PO Q12H CHEST PAIN 06/22/20 03/06/24 History release,12 hr tamsulosin 0.4 mg capsule 0.4 mg PO QHS PROSTATE 08/10/20 03/06/24 History clopidogrel 75 mg tablet (Plavix) 75 mg PO DAILY BLOOD THINNER 01/07/21 03/26/24 History Held on 03/09/24. Instructions: Resume on 03/16/24. hold until after EBUS with pulmonology and cleared to resume it by pulmonology albuterol sulfate 2.5 mg/3 mL 2.5 mg inhalation Q6H PRN 12/12/21 03/06/24 History (0.083 %) solution for nebulization SHORTNESS OF BREATH/WHEEZING magnesium oxide 420 mg tablet 420 mg PO BID SUPPLEMENT 12/12/21 03/06/24 History multivitamin with minerals 1 tab PO DAILY SUPPLEMENT 12/12/21 03/06/24 History spironolactone 25 mg tablet 25 mg PO DAILY BLOOD PRESSURE 09/10/22 03/06/24 History (Aldactone) acetaminophen 325 mg tablet 650 mg PO 4X/DAY PRN PAIN 01/27/23 03/06/24 History (Tylenol) cholecalciferol (vitamin D3) 50 100 mcg PO DAILY SUPPLEMENT 03/04/23 03/06/24 History mcg (2,000 unit) capsule (D3-2000) levetiracetam 500 mg tablet 500 mg PO BID seizure 05/27/23 03/06/24 History furosemide 40 mg tablet 40 mg PO DAILY EDEMA 07/19/23 03/06/24 History fluticasone fur. 200 mcg-umeclid 1 inh inhalation DAILY #60 ea 12/14/23 03/06/24 Rx 62.5 mcg-vilant 25 mcg inhalat.powder (Trelegy Ellipta) guaifenesin 100 mg/5 mL oral 200 mg PO TID PRN cough 12/31/23 Unknown History liquid (Adult Tussin Chest Congestion) guaifenesin 600 mg tablet, 600 mg PO BID PRN cough 12/31/23 03/06/24 History extended release 12 hr insulin regular hum U-500 conc 500 130 unit subcut BID DIABETES 12/31/23 03/06/24 History unit/mL(3 mL) subcut pen (Humulin R U-500 (Conc) Insulin Kwikpen) codeine sulfate 15 mg tablet 15 mg PO Q6H PRN cough 2 days #8 02/14/24 Unknown Rx tabs ondansetron 8 mg disintegrating 8 mg PO Q8H PRN nausea and 02/22/24 Unknown Rx tablet vomiting #15 tabs Allergy/AdvReac Type Severity Reaction Status Date / Time ezetimibe Allergy Unknown Verified 03/29/24 17:17 Fish Containing Products Allergy Unknown Verified 03/29/24 17:17 glyburide Allergy Unknown Verified 03/29/24 17:17 isosorbide Allergy PT UNSURE Verified 03/29/24 17:17 OF REACTION lisinopril Allergy Unknown Verified 03/29/24 17:17 metformin Allergy Nausea Verified 03/29/24 17:17 metoprolol Allergy Unknown Verified 03/29/24 17:17 simvastatin Allergy Unknown Verified 03/29/24 17:17 tramadol Allergy Other Verified 03/29/24 17:17 iron AdvReac Mild Vomiting Verified 03/29/24 17:17 gabapentin AdvReac Other Verified 03/29/24 17:17 Family History Father No problems noted. Surgical History History of cardiac catheterization History of colonoscopy History of surgery History of coronary artery stent placement History of cholecystectomy History of knee replacement procedure of left knee History of permanent cardiac pacemaker placement (01/14/21) H/O coronary artery bypass surgery History of coronary artery stent placement Social History household members: spouse Smoking Status: Former smoker details: Unknown substance use type: does not use Review of Systems (Anesthesia) ROS Narrative System reviewed and no additional complaints, except as documented.
[2024-03-31] MEDS: 0.9% Normal Saline (1000mL) 1,000 ML 15 ML IV (10:49)
[2024-03-31] MEDS: Lidocaine 2% (5ml sdv) 5 ML VIAL.MPF (11:33)
[2024-03-31] MEDS: Lidocaine Jelly 2% 20 ML Syringe (URO-JET) 1 APPLIC (11:33)
--- NOTE | 2024-03-31 11:40 | OP.BRONCH_ITS ---
Patient Name: Wally Coello Procedure Date: 03/31/2024 10:55 AM Date of : 1950 Age: 73 Procedure: Bronchoscopy Indications: Zuleyka mass, Mediastinal adenopathy Providers: Xavi Schmidt MD Referring MD: Xavi Schmidt MD Medicines: See the Anesthesia note for documentation of the administered medications Complications: No immediate complications Procedure: Pre-Anesthesia Assessment: - A History and Physical has been performed. Patient meds and allergies have been reviewed. The risks and benefits of the procedure and the sedation options and risks were discussed with the patient. All questions were answered and informed consent was obtained. Patient identification and proposed procedure were verified prior to the procedure by the physician and the nurse in the procedure room. Mental Status Examination: alert and oriented. Airway Examination: normal oropharyngeal airway. Respiratory Examination: poor air movement. CV Examination: normal. ASA Grade Assessment: II - A patient with mild systemic disease. After reviewing the risks and benefits, the patient was deemed in satisfactory condition to undergo the procedure. The anesthesia plan was to use general anesthesia. Immediately prior to administration of medications, the patient was re-assessed for adequacy to receive sedatives. The heart rate, respiratory rate, oxygen saturations, blood pressure, adequacy of pulmonary ventilation, and response to care were monitored throughout the procedure. The physical status of the patient was re-assessed after the procedure. After I obtained informed consent, the scope was passed under direct vision. Throughout the procedure, the patient's blood pressure, pulse, and oxygen saturations were monitored continuously. The ultrasound bronchoscope was introduced through the mouth and advanced to the tracheobronchial tree. The bronchoscope was introduced through the mouth and advanced to the tracheobronchial tree. The procedure was accomplished without difficulty. The patient tolerated the procedure well. Findings: The laryngeal mask airway is in good position. The vocal cords appear normal. The subglottic space is normal. The trachea is of normal caliber. The zuleyka is sharp. The tracheobronchial tree was examined to at least the first subsegmental level. Bronchial mucosa and anatomy are normal; there are no endobronchial lesions, and no secretions. The scope was withdrawn and replaced with the EBUS bronchoscope to accomplish the ultrasound examination. Lymph Nodes: An endobronchial ultrasound endoscope was utilized to systematically examine the subcarinal mediastinum (level 7) in order to assist with guiding the biopsy needle. Lymph node sizing was performed via endobronchial ultrasound. Sampling by transbronchial needle aspiration was also performed using an Olympus ViziShot 2 21 gauge needle in the subcarinal mediastinum (level 7) and sent for routine cytology and flow cytometry. - The 7 (subcarinal) node was evaluated. Six samples with the needle were obtained. Impression: - Sub Carinal mass - Mediastinal adenopathy - The airway examination was normal. - Endobronchial ultrasound was performed. - Lymph node/mass sampling was performed. Recommendation: - Await biopsy results. Procedure Code(s): --- Professional --- 40773, Bronchoscopy, rigid or flexible, including fluoroscopic guidance, when performed; with endobronchial ultrasound (EBUS) guided transtracheal and/or transbronchial sampling (eg, aspiration[s]/biopsy[ies]), one or two mediastinal and/or hilar lymph node stations or structures Diagnosis Code(s): --- Professional --- R91.8, Other nonspecific abnormal finding of lung field R59.0, Localized enlarged lymph nodes R09.89, Other specified symptoms and signs involving the circulatory and respiratory systems CPT copyright 2021 [employer]. All rights reserved. The codes documented in this report are preliminary and upon tongue stitcher review may be revised to meet current compliance requirements. DO Xavi Clayton MD 03/31/2024 11:39:01 AM This report has been signed electronically. Number of Addenda: 0 Note Initiated On: 03/31/2024 10:55 AM
--- NOTE | 2024-03-31 11:42 | PCM.POST.ANE ---
Anesthesia: Postop Eval I Current Vital Signs Temperature: 98.2 F Pulse Rate: 81 Blood Pressure: 135/80 Respiratory Rate: 20 Pulse Ox: 96 Oxygen Delivery Method: Nasal Cannula (2 l) Assessment Airway patent: Yes Spontaneous unlabored respirations: Yes Mental status: Asleep nausea: No Vomiting: No Anesthesia Complication: No Fluid Hydration Crystalloid volume administer (ml): 500 Total IV fluid infused: 500 Progress Note Anesthesia document: Postop Eval 1 completed: Yes
--- NOTE | 2024-03-31 18:32 | POSTOPAN2_ITS ---
Anesthesia Postop Eval I Sum Postop Eval Completion status Anesthesia document: Postop Eval 1 completed: Yes Anesthesia Postop Eval I Summary Anesthesia Postop Eval I Summary: Anesthesia Postop Eval I: Assessment Summary Airway patent Yes 03/31/24 11:44 PAINT [email or web address] Spontaneous unlabored Yes 03/31/24 11:44 PAINT [email or web address] respirations Mental status Asleep 03/31/24 11:44 PAINT [email or web address] nausea No 03/31/24 11:44 PAINT FACTORY [email or web address] Vomiting No 03/31/24 11:44 PAINT [email or web address] Anesthesia Postop Eval I: Fluid Summary Crystalloid volume administer 500 03/31/24 11:44 PAINT [email or web address] (ml) Colloids volume administered ( ml) Blood Product volume administered (ml) Total IV fluid infused 500 03/31/24 11:44 PAINT [email or web address] Anesthesia Postop Eval I: Summary Notes Anesthesia Complication No 03/31/24 11:44 PAINT [email or web address] Anesthesia Complication Comment: Post-operative progress note Anesthesia: Postop Eval II Evaluation Mental status: Awake and Calm Pain Level: 0 nausea: No Vomiting: No Complications Anesthesia Complication: No
--- NOTE | 2024-03-31 18:32 | PCM.POSTANE2 ---
Anesthesia Postop Eval I Sum Postop Eval Completion status Anesthesia document: Postop Eval 1 completed: Yes Anesthesia Postop Eval I Summary Anesthesia Postop Eval I Summary: Anesthesia Postop Eval I: Assessment Summary Airway patent Yes 03/31/24 11:44 [email or web address] Spontaneous unlabored Yes 03/31/24 11:44 [email or web address] respirations Mental status Asleep 03/31/24 11:44 [email or web address] nausea No 03/31/24 11:44 MANAGER [email or web address] Vomiting No 03/31/24 11:44 [email or web address] Anesthesia Postop Eval I: Fluid Summary Crystalloid volume administer 500 03/31/24 11:44 [email or web address] (ml) Colloids volume administered ( ml) Blood Product volume administered (ml) Total IV fluid infused 500 03/31/24 11:44 [email or web address] Anesthesia Postop Eval I: Summary Notes Anesthesia Complication No 03/31/24 11:44 [email or web address] Anesthesia Complication Comment: Post-operative progress note Anesthesia: Postop Eval II Evaluation Mental status: Awake and Calm Pain Level: 0 nausea: No Vomiting: No Complications Anesthesia Complication: No
== END 2024-03-31 12:54 | disposition home or self-care (01) ==
LOC: EN 08:54 → AC 08:57
PROVIDERS: Referring Provider Internal Medicine Critical Care Medicine; Visit Provider Internal Medicine Critical Care Medicine
PROC: BB4BZZZ Ultrasonography of Pleura (ICD-10-PCS; CPT 31653; principal; 2024-03-31 10:30)
DX: I11.0 Hypertensive heart disease with heart failure (principal); I50.9 Heart failure, unspecified; J43.9 Emphysema, unspecified; E11.9 Type 2 diabetes mellitus without complications; E78.5 Hyperlipidemia, unspecified; I25.10 Atherosclerotic heart disease of native coronary artery without angina pectoris; Z87.891 Personal history of nicotine dependence; R91.8 Other nonspecific abnormal finding of lung field; R59.0 Localized enlarged lymph nodes; K21.9 Gastro-esophageal reflux disease without esophagitis
CPT/HCPCS: 31653; 00520; 82962; 88108; 88305; 88313; 88341; 88342; A4216; J2405

== ENCOUNTER 2024-04-04 09:46 | Emergency (ER) | payer OTHER, SELFPAY ==
[2024-04-04 09:47] VITALS: BP 122/67; PULSE 58; RESP 17; TEMP 36.5; O2SAT 94; BMI 31.1
--- NOTE | 2024-04-04 09:50 | RAD_ITS ---
PROCEDURE: CHEST 1 VIEW (PORTABLE) REASON FOR EXAM: Left-sided weakness. Increasing shortness of breath. TECHNIQUE: Frontal view of the chest. COMPARISON: Comparison is made with prior chest radiograph dated February 22, 2024. FINDINGS: EKG electrodes are seen. Prior CABG. A left-sided dual-chamber pacemaker is seen. Prominence of the left paratracheal region as well as the right paratracheal region. Prior CT scan of the chest demonstrated to be mediastinal lymphadenopathy. Mild increased markings at the lung bases more prominent on the left side suggestive of possible scarring. Status post ORIF of multiple left rib fractures. RAD/Chest 1 View (Portable) IMPRESSION: Stable examination. Widening of the paratracheal regions bilaterally. Recent CT scan of the thorax demonstrated to be adenopathy. Stable increased markings at the left lung base suggestive of possible scarring and/or atelectasis. Reading Location: [facility]
--- NOTE | 2024-04-04 09:53 | EX.ED.DYSGE1 ---
HPI History of Present Illness Chief Complaint: Nausea/Vomiting Informant: patient, spouse/S.O. and EMS Narrative Narrative: 73-year-old male had a lung biopsy 4 days ago because of an abnormal chest CT, since then he has felt a little short of breath, and had some chest discomfort retrosternal when he breathes. A day or 2 after the procedure he developed vomiting and diarrhea, denies any abdominal pain. states she was concerned because he has been eating and drinking very little. Therefore they called the pulmonary office today looking for advice and they advised him to come to the ER. Patient denies any other new symptoms. One of the paramedics was concerned because he was a little weak on his left side and his pupils are unequal. Patient denies this being new. He states has been able to walk okay last couple days, states he has a history of having some weakness on his left side because of my first stroke. [facility] Medical History Wears glasses Wears dentures Uses wheelchair Walker as ambulation aid Ambulates with cane Prostate disease High cholesterol History of edema History of echocardiogram Cardiology follow-up encounter Lung mass Abnormal chest CT Chronic pain GERD (gastroesophageal reflux disease) CPAP (continuous positive airway pressure) dependence COPD (chronic obstructive pulmonary disease) ICD (implantable cardioverter-defibrillator) in place Pacemaker Seizures TIA (transient ischemic attack) Lung mass Cough with hemoptysis ICD (implantable cardioverter-defibrillator) in place Left-sided weakness Chest pain History of CAD (coronary artery disease) Syncope DNR (do not resuscitate) DNR (do not resuscitate) discussion Heart failure Lung nodule Obesity EKATERINA (obstructive sleep apnea) Chronic hypoxemic respiratory failure COPD (chronic obstructive pulmonary disease) Anemia Chronic hyperglycemia History of TIAs Conversion reaction Sick sinus syndrome Pacemaker battery depletion Hemiparesis, left Former smoker On home oxygen therapy Pacemaker Congestive heart failure (CHF) Myocardial infarct Chest pain Pulmonary embolism Dysarthria BiPAP (biphasic positive airway pressure) dependence Wears hearing aid in both ears Diabetes Stroke/cerebrovascular accident COPD (chronic obstructive pulmonary disease) History of fractured rib CAD (coronary artery disease) Essential (primary) hypertension Atherosclerotic heart disease [place] coronary artery w/angina pectoris EKATERINA (obstructive sleep apnea) Abnormal EKG DM type 2 (diabetes mellitus, type 2) Chronic respiratory failure Obesity Hyperlipidemia Home Medications ?Medication ?Instructions ?Recorded ?Last Taken ?Type aspirin 81 mg tablet,delayed 81 mg PO DAILY HEART HEALTH 06/11/18 03/06/24 History release Held on 03/09/24. Instructions: Resume on 03/16/24. hold until cleared by pulmonology to resume it after EBUS atorvastatin 80 mg tablet 80 mg PO QHS CHOLESTEROL 06/11/18 03/06/24 History escitalopram oxalate 10 mg tablet 10 mg PO DAILY DEPRESSION 06/11/18 03/06/24 History finasteride 5 mg tablet 5 mg PO DAILY PROSTATE 06/11/18 03/06/24 History nitroglycerin 0.4 mg sublingual 0.4 mg sublingual Q5M PRN CHEST 07/22/18 01/17/20 Rx tablet PAIN #30 TABLETS pantoprazole 40 mg tablet,delayed 40 mg PO BID GERD 05/18/20 03/06/24 History release carvedilol 25 mg tablet 25 mg PO BID BLOOD PRESSURE 06/22/20 03/06/24 History ranolazine 500 mg tablet,extended 500 mg PO Q12H CHEST PAIN 06/22/20 03/06/24 History release,12 hr tamsulosin 0.4 mg capsule 0.4 mg PO QHS PROSTATE 08/10/20 03/06/24 History clopidogrel 75 mg tablet (Plavix) 75 mg PO DAILY BLOOD THINNER 01/07/21 03/26/24 History Held on 03/09/24. Instructions: Resume on 03/16/24. hold until after EBUS with pulmonology and cleared to resume it by pulmonology albuterol sulfate 2.5 mg/3 mL 2.5 mg inhalation Q6H PRN 12/12/21 03/06/24 History (0.083 %) solution for nebulization SHORTNESS OF BREATH/WHEEZING magnesium oxide 420 mg tablet 420 mg PO BID SUPPLEMENT 12/12/21 03/06/24 History multivitamin with minerals 1 tab PO DAILY SUPPLEMENT 12/12/21 03/06/24 History spironolactone 25 mg tablet 25 mg PO DAILY BLOOD PRESSURE 09/10/22 03/06/24 History (Aldactone) acetaminophen 325 mg tablet 650 mg PO 4X/DAY PRN PAIN 01/27/23 03/06/24 History (Tylenol) cholecalciferol (vitamin D3) 50 100 mcg PO DAILY SUPPLEMENT 03/04/23 03/06/24 History mcg (2,000 unit) capsule (D3-2000) levetiracetam 500 mg tablet 500 mg PO BID seizure 05/27/23 03/06/24 History furosemide 40 mg tablet 40 mg PO DAILY EDEMA 07/19/23 03/06/24 History fluticasone fur. 200 mcg-umeclid 1 inh inhalation DAILY #60 ea 12/14/23 03/06/24 Rx 62.5 mcg-vilant 25 mcg inhalat.powder (Trelegy Ellipta) guaifenesin 100 mg/5 mL oral 200 mg PO TID PRN cough 12/31/23 Unknown History liquid (Adult Tussin Chest Congestion) guaifenesin 600 mg tablet, 600 mg PO BID PRN cough 12/31/23 03/06/24 History extended release 12 hr insulin regular hum U-500 conc 500 130 unit subcut BID DIABETES 12/31/23 03/06/24 History unit/mL(3 mL) subcut pen (Humulin R U-500 (Conc) Insulin Kwikpen) codeine sulfate 15 mg tablet 15 mg PO Q6H PRN cough 2 days #8 02/14/24 Unknown Rx tabs ondansetron 8 mg disintegrating 8 mg PO Q8H PRN nausea and 02/22/24 Unknown Rx tablet vomiting #15 tabs ondansetron 8 mg disintegrating 8 mg PO Q8H PRN nausea and 04/04/24 Unknown Rx tablet vomiting #12 tabs Allergy/AdvReac Type Severity Reaction Status Date / Time ezetimibe Allergy Unknown Verified 03/29/24 17:17 Fish Containing Products Allergy Unknown Verified 03/29/24 17:17 glyburide Allergy Unknown Verified 03/29/24 17:17 isosorbide Allergy PT UNSURE Verified 03/29/24 17:17 OF REACTION lisinopril Allergy Unknown Verified 03/29/24 17:17 metformin Allergy Nausea Verified 03/29/24 17:17 metoprolol Allergy Unknown Verified 03/29/24 17:17 simvastatin Allergy Unknown Verified 03/29/24 17:17 tramadol Allergy Other Verified 03/29/24 17:17 iron AdvReac Mild Vomiting Verified 03/29/24 17:17 gabapentin AdvReac Other Verified 03/29/24 17:17 Family History Father No problems noted. Surgical History History of cardiac catheterization History of colonoscopy History of surgery History of coronary artery stent placement History of cholecystectomy History of knee replacement procedure of left knee History of permanent cardiac pacemaker placement (01/14/21) H/O coronary artery bypass surgery History of coronary artery stent placement Social History household members: spouse Smoking Status: Former smoker details: Unknown substance use type: does not use ROS ROS ED Constitutional Constitutional ED: Denies chills or fever(s) Eyes Eyes: Denies change in vision or diplopia ENT ENT ED: Denies rhinorrhea or sore throat Cardiovascular Cardiovascular: Reports chest pain; Denies palpitations Respiratory/Chest Respiratory/Chest: Reports dyspnea; Denies cough Gastrointestinal Gastrointestinal: Reports diarrhea, nausea and vomiting; Denies abdominal pain, hematemesis, hematochezia or melena Genitourinary Genitourinary ED: Denies dysuria or hematuria Musculoskeletal Musculoskeletal: Denies back pain or neck pain Integumentary Denies abscess or rash Neurologic Neurologic: Reports weakness; Denies headache(s) or paresthesias Psychiatric Psychiatric: Denies anxiety or suicidal thoughts EXAM Physical Exam Const Vital Signs: 04/04/24 09:47 04/04/24 10:27 Temperature 97.7 F L Temperature Source Oral Pulse Rate 58 L 69 Respiratory Rate 17 16 Blood Pressure 122/67 H Blood Pressure Mean 85 Pulse Ox 94 Oxygen Delivery Method Room Air Positive well nourished and well developed Constitutional Narrative: No distress able to converse without difficulty General Appearance ED: well developed and NAD HEENT Reports moist mucous membranes normocephalic and atraumatic Eyes PERRL and EOMs intact bilaterally Neck full ROM and supple Resp normal respiratory effort Resp Narrative: Lungs diffusely diminished but symmetrically. Breath sounds are equal bilaterally. Trachea midline. There are mild end expiratory wheezes in both apices. Otherwise his lungs are clear. Cardio regular rate, regular rhythm and no murmurs GI non-tender and non-distended Auscultation: hyperactive bowel sounds Palpation: soft Back/Spine no CVA tenderness General Back: other FROM Extremity normal to inspection General Extremety ED: Negative for edema, pulses abnormal or tenderness General Extremity: Negative for edema or pulses abnormal Neuro oriented x3, CN's II-XII intact bilaterally and no sensory deficits noted Neuro Narrative: Patient has a little more weakness in the left lower extremity compared with the right, but his arms are symmetric. No drift. Sensorium / Orientation: awake and alert Skin no rashes or lesions noted and no wounds MDM MDM MDM Narrative Medical decision making narrative: I have seen this patient before, his speech is at baseline agrees, and his mild left lower extremity deficit is old, he and are in agreement with that as well. 1 view chest x-ray my interpretation shows no pneumothorax or significant pleural effusion. Radiology interpretation reviewed they are in agreement that the exam is stable. Labs reviewed. Other than prerenal azotemia, I am not seeing anything concerning. His calcium is noted to be a little elevated; I did look at the pathology, but there are no results yet with regards to the biopsy he recently had. If the biopsy returns positive for malignancy it is possible as hypercalcemia could be related. Right now I think he can just follow-up since hypercalcemia is very mild, and may reverse with hydration which we did here with a liter of IV fluids. He is feeling better without an Zofran, is tolerating oral fluids, and his breathing is better with a nebulizer treatment, so his dyspnea was probably more related to his COPD, but not to the point of a significant exacerbation I think requires antibiotics right now. Stable for discharge home, supportive care advised for what is likely viral gastroenteritis. History & Record Review Additional record(s) reviewed:: Prior labs (Prior calcium levels. Pathology but no results yet.) Lab Data Attestation: I reviewed the patient's lab results. Labs: Laboratory Results - last 24 hr 04/04/24 09:55 WBC 4.8 RBC 4.09 L Hgb 11.6 L Hct 35.4 L MCV 86.6 MCH 28.4 MCHC 32.8 RDW Std Deviation 43.8 RDW Coeff of Cinda 14.1 Plt Count 185 MPV 10.3 Immature Gran % (Auto) 0.200 Neut % (Auto) 73.7 H Lymph % (Auto) 14.[address] [place] % (Auto) 8.3 Eos % (Auto) 3.3 Baso % (Auto) 0.2 Absolute Neuts (auto) 3.6 Absolute Lymphs (auto) 0.69 L Nucleated RBC % 0 Sodium 133 L Potassium 3.9 Chloride 97 L Carbon Dioxide 30.0 Anion Gap 7 BUN 25 H Creatinine 0.91 Estim Creat Clear Calc 85.04 Est GFR (MDRD) Af Amer 104 Est GFR (MDRD) Non-Af 86 BUN/Creatinine Ratio 27.4 H Glucose 250 H Calcium 10.5 H Total Bilirubin 1.40 H AST 18 ALT 10 L Alkaline Phosphatase 99 Troponin I High Sens 16 Total Protein 7.9 Albumin 2.8 L Globulin 5.1 H Albumin/Globulin Ratio 0.5 L Radiography Diagnostic Testing: Clinical Impression(s) from Imaging Studies Chest X-Ray 04/04/24 09:50 IMPRESSION: Stable examination. Widening of the paratracheal regions bilaterally. Recent CT scan of the thorax demonstrated to be adenopathy. Stable increased markings at the left lung base suggestive of possible scarring and/or atelectasis. Reading Location: [id number] Rhythm Strip Rhythm Strip: Paced Rate: 65 Ectopy: None EKG Initial EKG: Attestation: I personally reviewed and interpreted this EKG as follows: Interpretation: No Acute Injury Pattern and Paced Prior EKG tracings: available for review Prior: Unchanged Discharge Plan Triage Chief Complaint: Nausea/Vomiting ED Provider: Shai Hassan Dx/Rx/DC Orders Clinical Impression: Mild dehydration, COPD (chronic obstructive pulmonary disease), Viral gastroenteritis, Wheezing, Hypercalcemia Instructions: Dehydration, ED Gastroenteritis, Viral (Adult) Prescriptions: New ondansetron 8 mg tablet,disintegrating 8 mg PO Q8H PRN (Reason: nausea and vomiting) Qty: 12 0RF No Action clopidogrel [Plavix] 75 mg tablet 75 mg PO DAILY levetiracetam 500 mg tablet 500 mg PO BID Trelegy Ellipta 200-62.5-25 mcg blister with device 1 inh inhalation DAILY Qty: 60 6RF atorvastatin 80 MG tablet 80 mg PO QHS aspirin 81 MG tablet 81 mg PO DAILY Patient Comments: LST DOSE 03/26/24 FOR PROCEDURE ON 03/31/24 finasteride 5 MG tablet 5 mg PO DAILY escitalopram oxalate 10 MG tablet 10 mg PO DAILY nitroglycerin 0.4 MG tablet, sublingual 0.4 mg sublingual Q5M PRN (Reason: CHEST PAIN ) Qty: 30 0RF pantoprazole 40 MG tablet 40 mg PO BID carvedilol 25 MG tablet 25 mg PO BID ranolazine 500 mg Tablet Extended Release 12 Hr 500 mg PO Q12H tamsulosin 0.4 MG capsule 0.4 mg PO QHS magnesium oxide 420 mg Tablet 420 mg PO BID albuterol sulfate 2.5 mg /3 mL (0.083 %) Solution For Nebulization 2.5 mg INHALATION Q6H PRN (Reason: SHORTNESS OF BREATH/WHEEZING ) multivitamin with minerals Tablet 1 tab PO DAILY spironolactone [Aldactone] 25 mg tablet 25 mg PO DAILY acetaminophen [Tylenol] 325 MG tablet 650 mg PO 4X/DAY PRN (Reason: PAIN ) cholecalciferol (vitamin D3) [D3-2000] 50 mcg (2,000 unit) capsule 100 mcg PO DAILY furosemide 40 mg Tablet 40 mg PO DAILY guaifenesin [Adult Tussin Chest Congestion] 100 mg/5 mL liquid 200 mg PO TID PRN (Reason: cough) guaifenesin 600 mg tablet extended release 12hr 600 mg PO BID PRN (Reason: cough) Humulin R U-500 (Conc) Kwikpen 500 unit/mL (3 mL) insulin pen 130 unit subcut BID Rx Instructions: 130 units with breakfast; 130 units with dinner ondansetron 8 mg tablet,disintegrating 8 mg PO Q8H PRN (Reason: nausea and vomiting) Qty: 15 0RF codeine sulfate 15 mg tablet 15 mg PO Q6H PRN (Reason: cough) 2 Days Qty: 8 0RF [facility] Referrals: [facility] [Primary Care Provider] - 3-5 Days if not improving Print Language: [place] Disposition Disposition: Home, Self Care
[2024-04-04] MEDS: Ondansetron 4 MG/2 ML Vial IV (09:57)
[2024-04-04] MEDS: 0.9% Normal Saline (1000mL) 1,000 ML 999 ML IV (09:57)
[2024-04-04] MEDS: Albuterol 2.5 MG/3 ML VIAL.NEB. INHALATION (09:57)
[2024-04-04 10:13] LABS: Absolute Lymphocyte Count 0.69 X10^3/uL (0.83-4.51); Absolute Neutrophil Count 3.6 X10^3/uL (2.0-7.7); Basophil# 0.01 X10^3/uL; Basophil% 0.2 % (0-1); Eosinophil# 0.16 X10^3/uL; Eosinophils% 3.3 % (0-5); Hematocrit 35.4 % (40-54); Hemoglobin 11.6 g/dL (13.0-16.5); Lymphocyte # 0.69 X10^3/ul (0.83-4.51); Lymphocyte % 14.3 % (19-41); Mean Corp Hgb Conc 32.8 g/dL (32-36); Mean Corpuscular Hgb 28.4 pg (27.0-32.0); Mean Corpuscular Volume 86.6 fL (80-94); Mean Platelet Vol. 10.3 fl (6.2-12.0); Monocyte% 8.3 % (0-10); NRBC Flagged by Analyzer 0 % (0-5); Neutrophil # 3.55 X10^3/uL (2.7-7.7); Neutrophil % 73.7 % (47-70); Platelet Count 185 K/mm3 (150-450); RBC Distribution Width CV 14.1 % (11.6-14.6); RBC Distribution Width SD 43.8 fl (35.1-43.9); Red Blood Count 4.09 M/mm3 (4.6-6.2); White Blood Count 4.8 K/mm3 (4.4-11.0)
[2024-04-04 10:27] VITALS: PULSE 69; RESP 16
[2024-04-04 10:34] LABS: ALB/GLOB Ratio 0.5 RATIO (0.9-2.4); AST(SGOT) 18 U/L (15-37); Alanine Aminotransfer ALT/SGPT 10 U/L (16-61); Albumin, Serum 2.8 g/dL (3.2-5.0); Alkaline Phosphatase 99 U/L (45-117); Anion Gap 7 (5-15); BUN 25 mg/dL (7-18); BUN/Creat Ratio 27.4 RATIO (10-20); Calcium,Total 10.5 mg/dL (8.5-10.1); Chloride 97 mmol/L (98-107); Creatinine, Serum 0.91 mg/dL (0.70-1.30); EST Glomerular Filtration Rate 86 mL/min (>60); Est Glom Filt Rate - Afr Amer 104 mL/min (>60); Estimated Creatinine Clearance 85.04 ml/min; Globulin 5.1 g/dL (2.2-4.2); Glucose 250 mg/dL (74-106); Potassium 3.9 mmol/L (3.5-5.1); Protein, Total 7.9 g/dL (6.4-8.2); Sodium Level 133 mmol/L (136-145); Troponin-I HS 16 pg/mL (3.0-78.0)
[2024-04-04 11:35] VITALS: BP 117/78; PULSE 71; RESP 17; TEMP 36.8; O2SAT 98
== END 2024-04-04 11:45 | disposition home or self-care (01) ==
PROVIDERS: Emergency Provider Emergency Medicine; Visit Provider Emergency Medicine
DX: A08.4 Viral intestinal infection, unspecified (principal); I50.9 Heart failure, unspecified; I11.0 Hypertensive heart disease with heart failure; J44.9 Chronic obstructive pulmonary disease, unspecified; E11.9 Type 2 diabetes mellitus without complications; E78.00 Pure hypercholesterolemia, unspecified; E83.52 Hypercalcemia; I25.10 Atherosclerotic heart disease of native coronary artery without angina pectoris; Z87.891 Personal history of nicotine dependence; E86.0 Dehydration; K21.9 Gastro-esophageal reflux disease without esophagitis; R07.9 Chest pain, unspecified; R06.00 Dyspnea, unspecified; R06.2 Wheezing
CPT/HCPCS: 71045; 80053; 84484; 85025; 93005; 94640; 96361; 96374; 99283; A4216; J2405

== ENCOUNTER 2024-04-10 10:51 | Emergency (ER) | payer OTHER, SELFPAY ==
[2024-04-10 10:52] VITALS: BP 108/91; PULSE 62; RESP 16; TEMP 36.3; O2SAT 98
--- NOTE | 2024-04-10 11:04 | EKG12_ITS ---
Test Reason : SOB Blood Pressure : */* mmHG Vent. Rate : 71 BPM Atrial Rate : 71 BPM P-R Int : 108 ms QRS Dur : 142 ms QT Int : 470 ms P-R-T Axes : 51 -89 106 degrees QTcB Int : 510 ms AV DEMAND PACER Biventricular pacemaker detected Abnormal ECG Confirmed by Flako Sheikh ([id number]), manuscript editor KENDALL ROCHE ([id number]) on 04/11/2024 10:25:34 AM Referred By: Confirmed By: Flako Sheikh
--- NOTE | 2024-04-10 11:06 | EX.ED.DYSGE1 ---
HPI <DEV Mendoza - Last Filed: 04/10/24 12:24> History of Present Illness Chief Complaint: Shortness of Breath Narrative Narrative: 73-year-old male with PMH of CABG, A-fib, pacemaker, COPD, recent diagnosis of lung cancer not yet on treatment presents with 10 days of general illness. He has had fatigue, chills, cough, shortness of breath and decreased appetite. He occasionally has chest pain. His primary care doctor said if he is not eating and drinking by the weekend to have him evaluated so his brought him in. He is feeling very weak and lightheaded this morning. No syncope. He is a former smoker. PFS <DEV Mendoza - Last Filed: 04/10/24 12:24> [facility] Medical History Wears glasses Wears dentures Uses wheelchair Walker as ambulation aid Ambulates with cane Prostate disease High cholesterol History of edema History of echocardiogram Cardiology follow-up encounter Lung mass Abnormal chest CT Chronic pain GERD (gastroesophageal reflux disease) CPAP (continuous positive airway pressure) dependence COPD (chronic obstructive pulmonary disease) ICD (implantable cardioverter-defibrillator) in place Pacemaker Seizures TIA (transient ischemic attack) Lung mass Cough with hemoptysis ICD (implantable cardioverter-defibrillator) in place Left-sided weakness Chest pain History of CAD (coronary artery disease) Syncope DNR (do not resuscitate) DNR (do not resuscitate) discussion Heart failure Lung nodule Obesity EKATERINA (obstructive sleep apnea) Chronic hypoxemic respiratory failure COPD (chronic obstructive pulmonary disease) Anemia Chronic hyperglycemia History of TIAs Conversion reaction Sick sinus syndrome Pacemaker battery depletion Hemiparesis, left Former smoker On home oxygen therapy Pacemaker Congestive heart failure (CHF) Myocardial infarct Chest pain Pulmonary embolism Dysarthria BiPAP (biphasic positive airway pressure) dependence Wears hearing aid in both ears Diabetes Stroke/cerebrovascular accident COPD (chronic obstructive pulmonary disease) History of fractured rib CAD (coronary artery disease) Essential (primary) hypertension Atherosclerotic heart disease [place] coronary artery w/angina pectoris EKATERINA (obstructive sleep apnea) Abnormal EKG DM type 2 (diabetes mellitus, type 2) Chronic respiratory failure Obesity Hyperlipidemia Home Medications ?Medication ?Instructions ?Recorded ?Last Taken ?Type aspirin 81 mg tablet,delayed 81 mg PO DAILY [facility] 06/11/18 03/06/24 History release Held on 03/09/24. Instructions: Resume on 03/16/24. hold until cleared by pulmonology to resume it after EBUS atorvastatin 80 mg tablet 80 mg PO QHS CHOLESTEROL 06/11/18 03/06/24 History escitalopram oxalate 10 mg tablet 10 mg PO DAILY DEPRESSION 06/11/18 03/06/24 History finasteride 5 mg tablet 5 mg PO DAILY PROSTATE 06/11/18 03/06/24 History nitroglycerin 0.4 mg sublingual 0.4 mg sublingual Q5M PRN CHEST 07/22/18 01/17/20 Rx tablet PAIN #30 TABLETS pantoprazole 40 mg tablet,delayed 40 mg PO BID GERD 05/18/20 03/06/24 History release carvedilol 25 mg tablet 25 mg PO BID BLOOD PRESSURE 06/22/20 03/06/24 History ranolazine 500 mg tablet,extended 500 mg PO Q12H CHEST PAIN 06/22/20 03/06/24 History release,12 hr tamsulosin 0.4 mg capsule 0.4 mg PO QHS PROSTATE 08/10/20 03/06/24 History clopidogrel 75 mg tablet (Plavix) 75 mg PO DAILY BLOOD THINNER 01/07/21 03/26/24 History Held on 03/09/24. Instructions: Resume on 03/16/24. hold until after EBUS with pulmonology and cleared to resume it by pulmonology albuterol sulfate 2.5 mg/3 mL 2.5 mg inhalation Q6H PRN 12/12/21 03/06/24 History (0.083 %) solution for nebulization SHORTNESS OF BREATH/WHEEZING magnesium oxide 420 mg tablet 420 mg PO BID SUPPLEMENT 12/12/21 03/06/24 History multivitamin with minerals 1 tab PO DAILY SUPPLEMENT 12/12/21 03/06/24 History spironolactone 25 mg tablet 25 mg PO DAILY BLOOD PRESSURE 09/10/22 03/06/24 History (Aldactone) acetaminophen 325 mg tablet 650 mg PO 4X/DAY PRN PAIN 01/27/23 03/06/24 History (Tylenol) cholecalciferol (vitamin D3) 50 100 mcg PO DAILY SUPPLEMENT 03/04/23 03/06/24 History mcg (2,000 unit) capsule (D3-2000) levetiracetam 500 mg tablet 500 mg PO BID seizure 05/27/23 03/06/24 History furosemide 40 mg tablet 40 mg PO DAILY EDEMA 07/19/23 03/06/24 History fluticasone fur. 200 mcg-umeclid 1 inh inhalation DAILY #60 ea 12/14/23 03/06/24 Rx 62.5 mcg-vilant 25 mcg inhalat.powder (Trelegy Ellipta) guaifenesin 100 mg/5 mL oral 200 mg PO TID PRN cough 12/31/23 Unknown History liquid (Adult Tussin Chest Congestion) guaifenesin 600 mg tablet, 600 mg PO BID PRN cough 12/31/23 03/06/24 History extended release 12 hr insulin regular hum U-500 conc 500 130 unit subcut BID DIABETES 12/31/23 03/06/24 History unit/mL(3 mL) subcut pen (Humulin R U-500 (Conc) Insulin Kwikpen) codeine sulfate 15 mg tablet 15 mg PO Q6H PRN cough 2 days #8 02/14/24 Unknown Rx tabs ondansetron 8 mg disintegrating 8 mg PO Q8H PRN nausea and 02/22/24 Unknown Rx tablet vomiting #15 tabs ondansetron 8 mg disintegrating 8 mg PO Q8H PRN nausea and 04/04/24 Unknown Rx tablet vomiting #12 tabs azithromycin 250 mg tablet 250 mg PO DAILY #6 TABLETS 04/10/24 Unknown Rx prednisone 20 mg tablet 40 mg (2 x 20 mg) PO DAILY 5 days 04/10/24 Unknown Rx #10 tabs Allergy/AdvReac Type Severity Reaction Status Date / Time ezetimibe Allergy Unknown Verified 04/10/24 11:32 Fish Containing Products Allergy Unknown Verified 04/10/24 11:32 glyburide Allergy Unknown Verified 04/10/24 11:32 isosorbide Allergy PT UNSURE Verified 04/10/24 11:32 OF REACTION lisinopril Allergy Unknown Verified 04/10/24 11:32 metformin Allergy Nausea Verified 04/10/24 11:32 metoprolol Allergy Unknown Verified 04/10/24 11:32 simvastatin Allergy Unknown Verified 04/10/24 11:32 tramadol Allergy Other Verified 04/10/24 11:32 iron AdvReac Mild Vomiting Verified 04/10/24 11:32 gabapentin AdvReac Other Verified 04/10/24 11:32 Family History Father No problems noted. Surgical History History of cardiac catheterization History of colonoscopy History of surgery History of coronary artery stent placement History of cholecystectomy History of knee replacement procedure of left knee History of permanent cardiac pacemaker placement (01/14/21) H/O coronary artery bypass surgery History of coronary artery stent placement Social History household members: spouse Smoking Status: Former smoker details: Unknown substance use type: does not use ROS <DEV Mendoza - Last Filed: 04/10/24 12:24> ROS ED ROS Narrative Constitutional: Positive for chills, malaise. CVS: Negative for palpitations, syncope. Respiratory: Positive for shortness of breath, cough. GI: Negative for abdominal pain, nausea, vomiting, diarrhea. EXAM <DEV Mendoza - Last Filed: 04/10/24 12:24> Physical Exam Narrative Exam Narrative: CONST: Patient sitting in no acute distress. EYES: Normal inspection. ENT: Normal inspection, moist mucous membranes. NECK: Normal inspection. RESP: No respiratory distress, CTAB. CVS: Regular rate and rhythm, no murmur, no gallop. ABD: Soft and nontender, no guarding or rebound, nondistended. SKIN: Color normal, no rash, warm, dry, intact. EXTREMITIES: Normal appearance, no pedal edema. NEURO: Alert and answering questions appropriately. PSYCH: Normal affect. Const Vital Signs: 04/10/24 10:52 04/10/24 11:27 04/10/24 11:35 Temperature 97.4 F L Temperature Source Temporal Pulse Rate 62 84 Respiratory Rate 16 17 Respiratory Effort Short of Breath Respiratory Pattern Normal Tachypnea Blood Pressure 108/91 H Blood Pressure Mean 96 Pulse Ox 98 Oxygen Delivery Method Room Air Room Air <Dr. Shai Hassan MD - Last Filed: 04/10/24 12:44> Physical Exam Const Vital Signs: 04/10/24 10:52 04/10/24 11:27 04/10/24 11:35 Temperature 97.4 F L Temperature Source Temporal Pulse Rate 62 84 Respiratory Rate 16 17 Respiratory Effort Short of Breath Respiratory Pattern Normal Tachypnea Blood Pressure 108/91 H Blood Pressure Mean 96 Pulse Ox 98 Oxygen Delivery Method Room Air Room Air [facility] <DEV Mendoza - Last Filed: 04/10/24 12:24> [facility] Narrative Medical decision making narrative: History gathered from: Patient and his Differential includes but not limited to viral URI, COPD exacerbation, pneumonia 73-year-old male was brought in with concern is not eating and drinking very much. Patient reported chills, cough, and shortness of breath. Patient appears well and nontoxic. He is afebrile and hemodynamically stable. There is no respiratory distress. Lung sounds are diminished but clear. CBC has normal WBC of 5.3, stable hemoglobin of 12.0, platelets 218. His chemistry shows BUN of 20, creatinine 0.86. Glucose is 202 with normal CO2 and anion gap. EKG is nonischemic and troponin is 4. Chest x-ray was read as pulmonary vascular congestion, however I think it looks similar to previous and he does not have any clinical signs of heart failure. Viral swab for COVID/flu/RSV is negative. He was treated with IV fluids and DuoNeb and feels better with improved lung sounds. I will prescribe a Z-Bao and prednisone burst x 5 days for COPD exacerbation. I encouraged increased oral intake. He was discharged in stable condition. Lab Data Attestation: I reviewed the patient's lab results. Labs: Laboratory Results - last 24 hr 04/10/24 11:12 WBC 5.3 RBC 4.06 L Hgb 12.0 L Hct 35.4 L MCV 87.2 MCH 29.6 MCHC 33.9 RDW Std Deviation 44.9 H RDW Coeff of Cinda 14.4 Plt Count 218 MPV 10.3 Immature Gran % (Auto) 0.200 Neut % (Auto) 78.1 H Lymph % (Auto) 11.0 L Metcalfe % (Auto) 7.9 Eos % (Auto) 2.4 Baso % (Auto) 0.4 Absolute Neuts (auto) 4.2 Absolute Lymphs (auto) 0.59 L Nucleated RBC % 0 Sodium 135 L Potassium 3.8 Chloride 96 L Carbon Dioxide 30.0 Anion Gap 9 BUN 20 H Creatinine 0.86 Est GFR (MDRD) Af Amer 112 Est GFR (MDRD) Non-Af 92 BUN/Creatinine Ratio 23.2 H Glucose 202 H Calcium 10.8 H Troponin I High Sens 4 Radiography Diagnostic Testing: Clinical Impression(s) from Imaging Studies Chest X-Ray 04/10/24 11:45 IMPRESSION: Cardiomegaly with pulmonary vascular congestion Reading Location: [facility] ED attending interpretation of 2 view chest x-ray shows cardiomegaly, no acute infiltrate. Looks similar to previous. EKG Initial EKG: Attestation: I personally reviewed and interpreted this EKG as follows: Interpretation: No Acute Injury Pattern Comments: Atrial sensed ventricular paced rhythm at 71 bpm [address] pacemaker No ST elevation <Dr. Shai Hassan MD - Last Filed: 04/10/24 12:44> MDM Lab Data Labs: Laboratory Results - last 24 hr 04/10/24 11:12 WBC 5.3 RBC 4.06 L Hgb 12.0 L Hct 35.4 L MCV 87.2 MCH 29.6 MCHC 33.9 RDW Std Deviation 44.9 H RDW Coeff of Cinda 14.4 Plt Count 218 MPV 10.3 Immature Gran % (Auto) 0.200 Neut % (Auto) 78.1 H Lymph % (Auto) 11.0 L [place]calfe % (Auto) 7.9 Eos % (Auto) 2.4 Baso % (Auto) 0.4 Absolute Neuts (auto) 4.2 Absolute Lymphs (auto) 0.59 L Nucleated RBC % 0 Sodium 135 L Potassium 3.8 Chloride 96 L Carbon Dioxide 30.0 Anion Gap 9 BUN 20 H Creatinine 0.86 Est GFR (MDRD) Af Amer 112 Est GFR (MDRD) Non-Af 92 BUN/Creatinine Ratio 23.2 H Glucose 202 H Calcium 10.8 H Troponin I High Sens 4 Radiography Diagnostic Testing: Clinical Impression(s) from Imaging Studies Chest X-Ray 04/10/24 11:45 IMPRESSION: Cardiomegaly with pulmonary vascular congestion Reading Location: [facility] Treatment and Re-Evaluation Comments:: I have personally performed a face to face assessment of the patient and have reviewed the KEVIN Note. I performed a substantive portion of the visit including all aspects of the following. My winslow findings include: History is mostly concerned with the fact that the patient has a very poor appetite, which is chronic but worse, and he is not eating or drinking as much fluid as usual. The patient states that he is drinking fluid. In addition, he has worsening cough and shortness of breath over the past day or 2 no known fevers but he has had some subjective chills. Exam is after nebulizer treatment lungs diminished throughout but symmetrically and clear to auscultation otherwise no respiratory distress or tachypnea, no tachycardia, well-appearing occasional dry cough, no pedal edema or JVD. Medical Decison Making 2 view chest x-ray shows cardiomegaly, possibly some mild CHF/congestion, no acute infiltrate to my interpretation radiology in agreement. Viral swab negative. Prerenal but normal creatinine, he was given a liter of fluid. Encouraged to drink fluids and follow-up but he is stable for discharge home. I do not think he is in acute CHF or needing admission at this time. He is not hypoxic or in respiratory distress. Other additions or changes: [None] Discharge Plan Triage Chief Complaint: Shortness of Breath ED Midlevel Provider: Irlanda Cadena ED Provider: Shai Hassan Dx/Rx/DC Orders Clinical Impression: Acute exacerbation of chronic obstructive pulmonary disease, Mild dehydration, Acute bronchitis Instructions: COPD Diabetes Prescriptions: New prednisone 20 mg tablet 40 mg PO DAILY 5 Days Qty: 10 0RF azithromycin 250 mg tablet 250 mg PO DAILY Qty: 6 0RF Rx Instructions: 2 tabs on day one, then 1 tab daily for 4 days No Action clopidogrel [Plavix] 75 mg tablet 75 mg PO DAILY levetiracetam 500 mg tablet 500 mg PO BID Trelegy Ellipta 200-62.5-25 mcg blister with device 1 inh inhalation DAILY Qty: 60 6RF atorvastatin 80 MG tablet 80 mg PO QHS aspirin 81 MG tablet 81 mg PO DAILY Patient Comments: LST DOSE 03/26/24 FOR PROCEDURE ON 03/31/24 finasteride 5 MG tablet 5 mg PO DAILY escitalopram oxalate 10 MG tablet 10 mg PO DAILY nitroglycerin 0.4 MG tablet, sublingual 0.4 mg sublingual Q5M PRN (Reason: CHEST PAIN ) Qty: 30 0RF pantoprazole 40 MG tablet 40 mg PO BID carvedilol 25 MG tablet 25 mg PO BID ranolazine 500 mg Tablet Extended Release 12 Hr 500 mg PO Q12H tamsulosin 0.4 MG capsule 0.4 mg PO QHS magnesium oxide 420 mg Tablet 420 mg PO BID albuterol sulfate 2.5 mg /3 mL (0.083 %) Solution For Nebulization 2.5 mg INHALATION Q6H PRN (Reason: SHORTNESS OF BREATH/WHEEZING ) multivitamin with minerals Tablet 1 tab PO DAILY spironolactone [Aldactone] 25 mg tablet 25 mg PO DAILY acetaminophen [Tylenol] 325 MG tablet 650 mg PO 4X/DAY PRN (Reason: PAIN ) cholecalciferol (vitamin D3) [D3-2000] 50 mcg (2,000 unit) capsule 100 mcg PO DAILY furosemide 40 mg Tablet 40 mg PO DAILY guaifenesin [Adult Tussin Chest Congestion] 100 mg/5 mL liquid 200 mg PO TID PRN (Reason: cough) guaifenesin 600 mg tablet extended release 12hr 600 mg PO BID PRN (Reason: cough) Humulin R U-500 (Conc) Kwikpen 500 unit/mL (3 mL) insulin pen 130 unit subcut BID Rx Instructions: 130 units with breakfast; 130 units with dinner ondansetron 8 mg tablet,disintegrating 8 mg PO Q8H PRN (Reason: nausea and vomiting) Qty: 15 0RF codeine sulfate 15 mg tablet 15 mg PO Q6H PRN (Reason: cough) 2 Days Qty: 8 0RF ondansetron 8 mg tablet,disintegrating 8 mg PO Q8H PRN (Reason: nausea and vomiting) Qty: 12 0RF [facility] [place] [Primary Care Provider] - Activity Restrictions/Additional Instructions: Your chest x-ray is negative for pneumonia and your swab is negative for COVID/flu/RSV. I think you have an upper respiratory virus causing a COPD exacerbation and I prescribed steroids and an antibiotic. Please follow-up with your primary care doctor. If you develop worsening shortness of breath or worsening symptoms please come back for reevaluation Print Language: Chinese Disposition Disposition: Home, Self Care
[2024-04-10] MEDS: Ipratropium/Albuterol Sulfate 3 ML AMPUL.NEB INHALATION (11:19)
[2024-04-10] MEDS: 0.9% Normal Saline (1000mL) 1,000 ML 999 ML IV (11:19)
[2024-04-10 11:20] LABS: Absolute Lymphocyte Count 0.59 X10^3/uL (0.83-4.51); Absolute Neutrophil Count 4.2 X10^3/uL (2.0-7.7); Basophil# 0.02 X10^3/uL; Basophil% 0.4 % (0-1); Eosinophil# 0.13 X10^3/uL; Eosinophils% 2.4 % (0-5); Hematocrit 35.4 % (40-54); Lymphocyte # 0.59 X10^3/ul (0.83-4.51); Mean Corp Hgb Conc 33.9 g/dL (32-36); Mean Corpuscular Hgb 29.6 pg (27.0-32.0); Mean Corpuscular Volume 87.2 fL (80-94); Mean Platelet Vol. 10.3 fl (6.2-12.0); Monocyte# 0.42 X10^3/uL; Monocyte% 7.9 % (0-10); NRBC Flagged by Analyzer 0 % (0-5); Neutrophil # 4.17 X10^3/uL (2.7-7.7); Neutrophil % 78.1 % (47-70); POSITIVE DIFFERENTIAL YES; Platelet Count 218 K/mm3 (150-450); RBC Distribution Width CV 14.4 % (11.6-14.6); RBC Distribution Width SD 44.9 fl (35.1-43.9); Red Blood Count 4.06 M/mm3 (4.6-6.2); White Blood Count 5.3 K/mm3 (4.4-11.0)
[2024-04-10 11:27] VITALS: PULSE 84; RESP 17
[2024-04-10 11:35] VITALS: O2SAT 97
[2024-04-10 11:36] LABS: Anion Gap 9 (5-15); BUN 20 mg/dL (7-18); BUN/Creat Ratio 23.2 RATIO (10-20); Calcium,Total 10.8 mg/dL (8.5-10.1); Chloride 96 mmol/L (98-107); Creatinine, Serum 0.86 mg/dL (0.70-1.30); EST Glomerular Filtration Rate 92 mL/min (>60); Est Glom Filt Rate - Afr Amer 112 mL/min (>60); Glucose 202 mg/dL (74-106); Potassium 3.8 mmol/L (3.5-5.1); Sodium Level 135 mmol/L (136-145); Troponin-I HS 4 pg/mL (3.0-78.0)
--- NOTE | 2024-04-10 11:45 | RAD_ITS ---
PROCEDURE: CHEST PA AND LATERAL REASON FOR EXAM: Cough TECHNIQUE: Frontal and lateral views of the chest. COMPARISON: 04/04/2024 FINDINGS: Left chest pacemaker Heart size is moderately enlarged. There are atherosclerotic calcifications of the thoracic aorta. Pulmonary vasculature is congested. Degenerative changes are identified within the thoracic spine. Plate and screw fixation of left rib fractures RAD/Chest PA and Lateral IMPRESSION: Cardiomegaly with pulmonary vascular congestion Reading Location: [facility]
[2024-04-10 12:49] VITALS: BP 136/78; PULSE 74; RESP 22; TEMP 36.6; O2SAT 97
== END 2024-04-10 12:50 | disposition home or self-care (01) ==
PROVIDERS: Physician Assistant; Emergency Provider Emergency Medicine; Visit Provider Emergency Medicine
DX: J44.1 Chronic obstructive pulmonary disease with (acute) exacerbation (principal); C34.90 Malignant neoplasm of unspecified part of unspecified bronchus or lung; I11.0 Hypertensive heart disease with heart failure; I50.9 Heart failure, unspecified; I48.91 Unspecified atrial fibrillation; E11.9 Type 2 diabetes mellitus without complications; Z87.891 Personal history of nicotine dependence; E78.00 Pure hypercholesterolemia, unspecified; I25.10 Atherosclerotic heart disease of native coronary artery without angina pectoris; J20.9 Acute bronchitis, unspecified; Z95.1 Presence of aortocoronary bypass graft; Z95.0 Presence of cardiac pacemaker; K21.9 Gastro-esophageal reflux disease without esophagitis; E86.0 Dehydration
CPT/HCPCS: 71046; 80048; 84484; 85025; 87631; 93005; 94640; 96360; 99282

== ENCOUNTER 2024-04-17 13:25 | Inpatient (IN) | payer OTHER, SELFPAY ==
[2024-04-17] VITALS (14 sets, daily range): BP systolic 89–140; BP diastolic 56–112; PULSE 60–87; RESP 16–25; TEMP 36.4–37.1; O2SAT 88–100; BMI 29.0; BMI 27.5
--- NOTE | 2024-04-17 13:51 | EX.ED.DYSGE1 ---
HPI History of Present Illness Chief Complaint: General Illness Narrative Narrative: Chief complaint and HPI: Confusion, decreased p.o. intake, weakness, general malaise. 73-year-old male with past medical history of CVA, CAD, EKATERINA, pacemaker, COPD, recent diagnosis of small cell lung cancer not yet on treatment who presents for general malaise, confusion, decreased p.o. intake, weakness. Onset of symptoms have been several weeks. Patient as well as are poor historians. On chart review patient was seen in the emergency department for same complaints on 04/04 and 04/10. At that time he was placed on a Z-Bao and prednisone. Patient states that his symptoms have not improved. He states he has continued to have decreased p.o. intake. states that he has not been acting himself and is intermittently confused. Patient endorses shortness of breath and cough. Endorses abdominal pain but cannot tell me when this started. Denies any fever, chest pain, vomiting, diarrhea, constipation, dysuria. Review of systems: See HPI Medications: As listed on the chart Allergies: As listed on the chart PFSH: Per chart Vital signs: As listed on the chart. Reviewed. Physical exam: Gen: Alert, oriented to person and place but did not know year Head: Normocephalic, atraumatic Eyes: No sclera icterus, conjunctiva clear, PERRL, EOMI ENT: Mildly dry mucous membranes Neck: Trachea midline, No JVD CV: RRR, no murmurs, no peripheral edema Resp: Diminished in the bilateral bases, mild intermittent expiratory wheeze GI: Abd soft, non-distended, diffusely tender to palpation, no rebound or rigidity Musc: Moves all extremities, no deformity Skin: Warm, dry Neuro: Alert, grossly intact, sensation intact Psych: Cooperative [facility] Medical History Wears glasses Wears dentures Uses wheelchair Walker as ambulation aid Ambulates with cane Prostate disease High cholesterol History of edema History of echocardiogram Cardiology follow-up encounter Lung mass Abnormal chest CT Chronic pain GERD (gastroesophageal reflux disease) CPAP (continuous positive airway pressure) dependence COPD (chronic obstructive pulmonary disease) ICD (implantable cardioverter-defibrillator) in place Pacemaker Seizures TIA (transient ischemic attack) Lung mass Cough with hemoptysis ICD (implantable cardioverter-defibrillator) in place Left-sided weakness Chest pain History of CAD (coronary artery disease) Syncope DNR (do not resuscitate) DNR (do not resuscitate) discussion Heart failure Lung nodule Obesity EKATERINA (obstructive sleep apnea) Chronic hypoxemic respiratory failure COPD (chronic obstructive pulmonary disease) Anemia Chronic hyperglycemia History of TIAs Conversion reaction Sick sinus syndrome Pacemaker battery depletion Hemiparesis, left Former smoker On home oxygen therapy Pacemaker Congestive heart failure (CHF) Myocardial infarct Chest pain Pulmonary embolism Dysarthria BiPAP (biphasic positive airway pressure) dependence Wears hearing aid in both ears Diabetes Stroke/cerebrovascular accident COPD (chronic obstructive pulmonary disease) History of fractured rib CAD (coronary artery disease) Essential (primary) hypertension Atherosclerotic heart disease [place] coronary artery w/angina pectoris EKATERINA (obstructive sleep apnea) Abnormal EKG DM type 2 (diabetes mellitus, type 2) Chronic respiratory failure Obesity Hyperlipidemia Home Medications ?Medication ?Instructions ?Recorded ?Last Taken ?Type aspirin 81 mg tablet,delayed 81 mg PO DAILY HEART HEALTH 06/11/18 03/06/24 History release Held on 03/09/24. Instructions: Resume on 03/16/24. hold until cleared by pulmonology to resume it after EBUS atorvastatin 80 mg tablet 80 mg PO QHS CHOLESTEROL 06/11/18 03/06/24 History escitalopram oxalate 10 mg tablet 10 mg PO DAILY DEPRESSION 06/11/18 03/06/24 History finasteride 5 mg tablet 5 mg PO DAILY PROSTATE 06/11/18 03/06/24 History nitroglycerin 0.4 mg sublingual 0.4 mg sublingual Q5M PRN CHEST 07/22/18 01/17/20 Rx tablet PAIN #30 TABLETS pantoprazole 40 mg tablet,delayed 40 mg PO BID GERD 05/18/20 03/06/24 History release carvedilol 25 mg tablet 25 mg PO BID BLOOD PRESSURE 06/22/20 03/06/24 History ranolazine 500 mg tablet,extended 500 mg PO Q12H CHEST PAIN 06/22/20 03/06/24 History release,12 hr tamsulosin 0.4 mg capsule 0.4 mg PO QHS PROSTATE 08/10/20 03/06/24 History clopidogrel 75 mg tablet (Plavix) 75 mg PO DAILY BLOOD THINNER 01/07/21 03/26/24 History Held on 03/09/24. Instructions: Resume on 03/16/24. hold until after EBUS with pulmonology and cleared to resume it by pulmonology albuterol sulfate 2.5 mg/3 mL 2.5 mg inhalation Q6H PRN 12/12/21 03/06/24 History (0.083 %) solution for nebulization SHORTNESS OF BREATH/WHEEZING magnesium oxide 420 mg tablet 420 mg PO BID SUPPLEMENT 12/12/21 03/06/24 History multivitamin with minerals 1 tab PO DAILY SUPPLEMENT 12/12/21 03/06/24 History spironolactone 25 mg tablet 25 mg PO DAILY BLOOD PRESSURE 09/10/22 03/06/24 History (Aldactone) acetaminophen 325 mg tablet 650 mg PO 4X/DAY PRN PAIN 01/27/23 03/06/24 History (Tylenol) cholecalciferol (vitamin D3) 50 100 mcg PO DAILY SUPPLEMENT 03/04/23 03/06/24 History mcg (2,000 unit) capsule (D3-2000) levetiracetam 500 mg tablet 500 mg PO BID seizure 05/27/23 03/06/24 History furosemide 40 mg tablet 40 mg PO DAILY EDEMA 07/19/23 03/06/24 History fluticasone fur. 200 mcg-umeclid 1 inh inhalation DAILY #60 ea 12/14/23 03/06/24 Rx 62.5 mcg-vilant 25 mcg inhalat.powder (Trelegy Ellipta) guaifenesin 100 mg/5 mL oral 200 mg PO TID PRN cough 12/31/23 Unknown History liquid (Adult Tussin Chest Congestion) guaifenesin 600 mg tablet, 600 mg PO BID PRN cough 12/31/23 03/06/24 History extended release 12 hr insulin regular hum U-500 conc 500 130 unit subcut BID DIABETES 12/31/23 03/06/24 History unit/mL(3 mL) subcut pen (Humulin R U-500 (Conc) Insulin Kwikpen) codeine sulfate 15 mg tablet 15 mg PO Q6H PRN cough 2 days #8 02/14/24 Unknown Rx tabs ondansetron 8 mg disintegrating 8 mg PO Q8H PRN nausea and 02/22/24 Unknown Rx tablet vomiting #15 tabs ondansetron 8 mg disintegrating 8 mg PO Q8H PRN nausea and 04/04/24 Unknown Rx tablet vomiting #12 tabs azithromycin 250 mg tablet 250 mg PO DAILY #6 TABLETS 04/10/24 Unknown Rx prednisone 20 mg tablet 40 mg (2 x 20 mg) PO DAILY 5 days 04/10/24 Unknown Rx #10 tabs Allergy/AdvReac Type Severity Reaction Status Date / Time ezetimibe Allergy Unknown Verified 04/13/24 13:18 Fish Containing Products Allergy Unknown Verified 04/13/24 13:18 glyburide Allergy Unknown Verified 04/13/24 13:18 isosorbide Allergy PT UNSURE Verified 04/13/24 13:18 OF REACTION lisinopril Allergy Unknown Verified 04/13/24 13:18 metformin Allergy Nausea Verified 04/13/24 13:18 metoprolol Allergy Unknown Verified 04/13/24 13:18 simvastatin Allergy Unknown Verified 04/13/24 13:18 tramadol Allergy Other Verified 04/13/24 13:18 iron AdvReac Mild Vomiting Verified 04/13/24 13:18 gabapentin AdvReac Other Verified 04/13/24 13:18 Family History Father No problems noted. Surgical History History of cardiac catheterization History of colonoscopy History of surgery History of coronary artery stent placement History of cholecystectomy History of knee replacement procedure of left knee History of permanent cardiac pacemaker placement (01/14/21) H/O coronary artery bypass surgery History of coronary artery stent placement Social History household members: spouse Smoking Status: Former smoker details: Unknown substance use type: does not use EXAM Physical Exam Const Vital Signs: 04/17/24 13:26 04/17/24 13:29 04/17/24 14:16 Temperature 98.2 F Temperature Source Oral Pulse Rate 84 75 Respiratory Rate 19 H 16 Respiratory Effort Short of Breath Blood Pressure 131/64 H Blood Pressure Mean 86 Pulse Ox 96 Oxygen Delivery Method Room Air 04/17/24 14:29 04/17/24 15:00 04/17/24 15:59 Temperature 98.4 F 98.1 F 98.2 F Temperature Source Oral Oral Oral Pulse Rate 76 74 64 Respiratory Rate 20 H 25 H 19 H Respiratory Effort Blood Pressure 89/74 L 125/65 H 130/78 H Blood Pressure Mean 79 85 95 Pulse Ox 95 100 97 Oxygen Delivery Method Room Air Room Air MDM MDM MDM Narrative Medical decision making narrative: 73-year-old male with past medical history of CVA, CAD, EKATERINA, pacemaker, COPD, recent diagnosis of small cell lung cancer not yet on treatment who presents for general malaise, confusion, decreased p.o. intake, weakness. Onset of symptoms have been several weeks. Patient has been seen multiple times in the ER for same complaints. Was treated for a COPD exacerbation. On chart review, followed up with pulmonology without any further changes. On presentation patient is oriented to self and place but not year. His vitals show mild hypertension. Differential diagnosis includes but is not limited to viral illness, pneumonia, PE, ACS, pancreatitis, diverticulitis, gastroenteritis, UTI, intracranial abnormality with known cancer. NS bolus, morphine, DuoNeb ordered for symptoms. Laboratory workup ordered including CTA chest and CT abdomen pelvis. VBG without significant hypercapnia. CBC without leukocytosis. Patient has baseline anemia that is improving from prior labs. Coags unremarkable. CMP shows baseline hyponatremia. No CONI. Hyperglycemic at 238. Patient is diabetic. Lactic acid unremarkable. No transaminitis. Troponin 32. Will obtain delta. COVID, flu, RSV negative. UA negative for UTI. CT head with no acute intracranial abnormality. Patient has chronic changes. CT abdomen pelvis shows constipation. Indeterminate right hepatic masses concerning for possible metastatic disease. On chart review, CT abdomen pelvis is from May 2022 and masses are not present. CTA chest shows no PE. Patient has lymphadenopathy and masses about the mediastinum with paraesophageal mass suggestive of neoplastic process. Diffuse emphysematous changes with right upper lobe mass also suggestive of neoplasm. Cardiomegaly. I did personally call the radiologist to read the CTA. No significant change in CTA compared to the one in February. Repeat troponin 31. Patient not having any chest pain. BNP pending. At this point in time, no clear etiology for patient's encephalopathy however given his encephalopathy, weakness, decreased p.o. intake, and failure to thrive patient will warrant admission. Family updated of all the results and the plan. They confirmed understanding. I spoke with hospitalist service who accepted admission. EKG: Interpreted by me/EM physician: EKG shows atrial sensed ventricular paced rhythm. Heart rate 79. Diagnostic: Interpreted by me/EM physician: Chest x-ray shows cardiomegaly with vascular congestion however this is similar to previous chest x-rays. Impression: 1. Encephalopathy, unclear etiology 2. Small cell lung cancer, suspect metastatic to the liver 3. Shortness of breath suspect secondary to #2 4. Generalized weakness 5. Failure to thrive 6. Chronic anemia 7. Chronic hyponatremia Lab Data Labs: Laboratory Results - last 24 hr 04/17/24 04/17/24 04/17/24 13:49 13:58 14:10 WBC 8.0 RBC 4.51 L Hgb 12.9 L Hct 38.7 L MCV 85.8 MCH 28.6 MCHC 33.3 RDW Std Deviation 44.8 H RDW Coeff of Cinda 14.7 H Plt Count 236 MPV 10.6 Immature Gran % (Auto) 0.200 Neut % (Auto) 82.8 H Lymph % (Auto) 9.3 L [place] % (Auto) 7.0 Eos % (Auto) 0.7 Baso % (Auto) 0.0 Absolute Neuts (auto) 6.7 Absolute Lymphs (auto) 0.75 L Nucleated RBC % 0 PT 14.9 INR 1.2 APTT 39.4 H Sodium 132 L Potassium 4.6 Chloride Direct 93 L Carbon Dioxide 26.3 Anion Gap 13 BUN 26 H Creatinine 0.78 Estim Creat Clear Calc 93.71 Est GFR (MDRD) Non-Af 94 BUN/Creatinine Ratio 32.9 H Glucose 238 H Lactic Acid 1.6 Calcium 10.7 Total Bilirubin 1.04 AST 23 ALT 6 Alkaline Phosphatase 113 Troponin T High Sens 32 H Total Protein 7.4 Albumin 3.3 L Globulin 4.1 Albumin/Globulin Ratio 0.8 L Lipase 20 Urine Color Urine Clarity Urine pH Ur Specific [place] Urine Protein Urine Glucose (UA) Urine Ketones Urine Occult Blood Urine Nitrite Urine Bilirubin Urine Urobilinogen Ur Leukocyte Esterase Urine RBC Urine WBC Ur Squamous Epith Cells Urine Bacteria Urine Mucus POC Glucose 247 H 04/17/24 15:52 WBC RBC Hgb Hct MCV MCH MCHC RDW Std Deviation RDW Coeff of Cinda Plt Count MPV Immature Gran % (Auto) Neut % (Auto) Lymph % (Auto) [place] % (Auto) Eos % (Auto) Baso % (Auto) Absolute Neuts (auto) Absolute Lymphs (auto) Nucleated RBC % PT INR APTT Sodium Potassium Chloride Direct Carbon Dioxide Anion Gap BUN Creatinine Estim Creat Clear Calc Est GFR (MDRD) Non-Af BUN/Creatinine Ratio Glucose Lactic Acid Calcium Total Bilirubin AST ALT Alkaline Phosphatase Troponin T High Sens Total Protein Albumin Globulin Albumin/Globulin Ratio Lipase Urine Color Yellow Urine Clarity Sl. Cloudy Urine pH 6.0 Ur Specific [place] 1.020 Urine Protein 30 H Urine Glucose (UA) 50 H Urine Ketones 15 H Urine Occult Blood Negative Urine Nitrite Negative Urine Bilirubin Negative Urine Urobilinogen 8 H Ur Leukocyte Esterase 25 H Urine RBC 0 SEEN Urine WBC 0-5 SEEN Ur Squamous Epith Cells 0-5 SEEN Urine Bacteria 0 SEEN Urine Mucus 0 SEEN POC Glucose ABG Data ABG results: ABG 04/17/24 14:16 Specimen Type JULISSA Sample Site Not entered O2 % 21.0 VBG pH 7.44 H VBG pO2 34 VBG HCO3 33 H VBG Total CO2 34 H VBG O2 Sat (Calc) 67 VBG Base Excess 8 H POC Mix VBG pCO2 Pt Tmp 47.8 O2 Delivery Device Room Air Radiography Diagnostic Testing: Clinical Impression(s) from Imaging Studies Chest X-Ray 04/17/24 15:20 IMPRESSION: Cardiomegaly with pulmonary vascular congestion. Reading Location: [facility] Abdomen/Pelvis CT 04/17/24 15:30 IMPRESSION: 1. Significant amount of stool noted throughout the colon. Correlate with constipation. 2. Indeterminate right hepatic masses. Primary versus metastatic disease is not excluded 3. Hepatic steatosis 4. Moderate hiatal hernia 5. Mild left pleural effusion with compressive atelectasis. 6. Cardiomegaly with diffuse coronary artery calcifications One or more dose reduction techniques were used (e.g., Automated exposure control, adjustment of the mA and/or kV according to patient size, use of iterative reconstruction technique). Reading Location: [facility] Brain CT 04/17/24 15:30 IMPRESSION: 1. No acute intracranial abnormality. 2. Age-appropriate volume loss and remote small-vessel ischemic changes Reading Location: [facility] Chest CTA 04/17/24 15:30 IMPRESSION: 1. No CT evidence of acute pulmonary embolism 2. Lymphadenopathy and masses about the mediastinum with paraesophageal mass suggestive of neoplastic process 3. Diffuse emphysematous changes with right upper lobe mass also suggestive neoplasm 4. Cardiomegaly One or more dose reduction techniques were used (e.g., Automated exposure control, adjustment of the mA and/or kV according to patient size, use of iterative reconstruction technique). [facility] T[facility] Chief Complaint: General Illness ED Provider: Vini Peters Dx/Rx/DC Orders Prescriptions: No Action clopidogrel [Plavix] 75 mg tablet 75 mg PO DAILY levetiracetam 500 mg tablet 500 mg PO BID Trelegy Ellipta 200-62.5-25 mcg blister with device 1 inh inhalation DAILY Qty: 60 6RF atorvastatin 80 MG tablet 80 mg PO QHS aspirin 81 MG tablet 81 mg PO DAILY Patient Comments: LST DOSE 03/26/24 FOR PROCEDURE ON 03/31/24 finasteride 5 MG tablet 5 mg PO DAILY escitalopram oxalate 10 MG tablet 10 mg PO DAILY nitroglycerin 0.4 MG tablet, sublingual 0.4 mg sublingual Q5M PRN (Reason: CHEST PAIN ) Qty: 30 0RF pantoprazole 40 MG tablet 40 mg PO BID carvedilol 25 MG tablet 25 mg PO BID ranolazine 500 mg Tablet Extended Release 12 Hr 500 mg PO Q12H tamsulosin 0.4 MG capsule 0.4 mg PO QHS magnesium oxide 420 mg Tablet 420 mg PO BID albuterol sulfate 2.5 mg /3 mL (0.083 %) Solution For Nebulization 2.5 mg INHALATION Q6H PRN (Reason: SHORTNESS OF BREATH/WHEEZING ) multivitamin with minerals Tablet 1 tab PO DAILY spironolactone [Aldactone] 25 mg tablet 25 mg PO DAILY acetaminophen [Tylenol] 325 MG tablet 650 mg PO 4X/DAY PRN (Reason: PAIN ) cholecalciferol (vitamin D3) [D3-2000] 50 mcg (2,000 unit) capsule 100 mcg PO DAILY furosemide 40 mg Tablet 40 mg PO DAILY guaifenesin [Adult Tussin Chest Congestion] 100 mg/5 mL liquid 200 mg PO TID PRN (Reason: cough) guaifenesin 600 mg tablet extended release 12hr 600 mg PO BID PRN (Reason: cough) Humulin R U-500 (Conc) Kwikpen 500 unit/mL (3 mL) insulin pen 130 unit subcut BID Rx Instructions: 130 units with breakfast; 130 units with dinner ondansetron 8 mg tablet,disintegrating 8 mg PO Q8H PRN (Reason: nausea and vomiting) Qty: 15 0RF codeine sulfate 15 mg tablet 15 mg PO Q6H PRN (Reason: cough) 2 Days Qty: 8 0RF ondansetron 8 mg tablet,disintegrating 8 mg PO Q8H PRN (Reason: nausea and vomiting) Qty: 12 0RF prednisone 20 mg tablet 40 mg PO DAILY 5 Days Qty: 10 0RF azithromycin 250 mg tablet 250 mg PO DAILY Qty: 6 0RF Rx Instructions: 2 tabs on day one, then 1 tab daily for 4 days [facility] Referrals: [facility] [Primary Care Provider] - Print Language: Syrian
--- NOTE | 2024-04-17 13:53 | EKG12_ITS ---
Test Reason : GENERAL Blood Pressure : */* mmHG Vent. Rate : 79 BPM Atrial Rate : 79 BPM P-R Int : 132 ms QRS Dur : 140 ms QT Int : 440 ms P-R-T Axes : 74 260 106 degrees QTcB Int : 504 ms Atrial-sensed ventricular-paced rhythm Biventricular pacemaker detected Abnormal ECG Confirmed by Flako Sheikh ([id number]), publications editor NADINE FERRER ([id number]) on 04/19/2024 10:45:22 AM Referred By: Confirmed By: Flako Sheikh
[2024-04-17] MEDS: 0.9% Normal Saline (1000mL) 1,000 ML 1000 ML IV (14:11)
[2024-04-17] MEDS: Morphine 2 MG/ML Syringe IV (14:11)
[2024-04-17] MEDS: Ipratropium/Albuterol Sulfate 3 ML AMPUL.NEB INHALATION ×2 (14:13→20:48)
[2024-04-17 14:15] LABS: Bedside Glucose 247 mg/dL (74-106)
[2024-04-17 14:18] LABS: Blood Gas Specimen Type VEN; O2 Delivery Device Room Air; SITE Not entered; VBG BASE EXCESS 8 mmol/L (-1.0-3.5); VBG Bicarbonate 33 mmol/L (22-26); VBG PO2 34 mmHg (25-40); VBG SO2 67 % (50-70); VBG TCO2 34 mmol/L (23-33); VBG pCO2 47.8 mmHg (41-51); VBG pH 7.44 (7.32-7.42)
[2024-04-17 14:23] LABS: Absolute Lymphocyte Count 0.75 X10^3/uL (0.83-4.51); Absolute Neutrophil Count 6.7 X10^3/uL (2.0-7.7); Eosinophil# 0.06 X10^3/uL; Eosinophils% 0.7 % (0-5); Hematocrit 38.7 % (40-54); Hemoglobin 12.9 g/dL (13.0-16.5); Lymphocyte # 0.75 X10^3/ul (0.83-4.51); Lymphocyte % 9.3 % (19-41); Mean Corp Hgb Conc 33.3 g/dL (32-36); Mean Corpuscular Hgb 28.6 pg (27.0-32.0); Mean Corpuscular Volume 85.8 fL (80-94); Mean Platelet Vol. 10.6 fl (6.2-12.0); Monocyte# 0.56 X10^3/uL; NRBC Flagged by Analyzer 0 % (0-5); Neutrophil # 6.65 X10^3/uL (2.7-7.7); Neutrophil % 82.8 % (47-70); Platelet Count 236 K/mm3 (150-450); RBC Distribution Width CV 14.7 % (11.6-14.6); RBC Distribution Width SD 44.8 fl (35.1-43.9); Red Blood Count 4.51 M/mm3 (4.6-6.2)
[2024-04-17 14:32] LABS: International Normalized Ratio 1.2; Partial Thromboplast Time 39.4 Seconds (24.1-36.2); Prothrombin Time (Protime)PT. 14.9 SECONDS (11.7-14.9)
[2024-04-17 14:50] LABS: Troponin T High Sensitivity 32 ng/L (<=22)
[2024-04-17 14:52] LABS: Lactic Acid 1.6 mmol/L (0.0-2.0)
--- NOTE | 2024-04-17 15:20 | RAD_ITS ---
PROCEDURE: CHEST 1 VIEW (PORTABLE) REASON FOR EXAM: Shortness of breath TECHNIQUE: Frontal and lateral views of the chest. COMPARISON: 04/10/2024. FINDINGS: Left chest pacemaker Heart size is moderately enlarged. The mediastinal contour is unremarkable. Pulmonary vasculature is congested. Degenerative changes are identified within the thoracic spine. Left lateral plate and screw fixations for prior rib fractures RAD/Chest 1 View (Portable) IMPRESSION: Cardiomegaly with pulmonary vascular congestion. Reading Location: [facility]
[2024-04-17 15:21] LABS: ALB/GLOB Ratio 0.8 RATIO (0.9-2.4); AST(SGOT) 23 U/L (<=37); Alanine Aminotransfer ALT/SGPT 6 U/L (<=46); Albumin, Serum 3.3 g/dL (3.4-4.8); Alkaline Phosphatase 113 U/L (40-129); Anion Gap 13 (5-15); BUN 26 mg/dL (4-19); BUN/Creat Ratio 32.9 RATIO (10-20); Calcium 10.7 mg/dL (7.6-11.0); Carbon Dioxide 26.3 mmol/L (22.0-29.0); Chloride 93 mmol/L (96-108); Creatinine, Serum 0.78 mg/dL (0.70-1.20); EST Glomerular Filtration Rate 94 (>60); Estimated Creatinine Clearance 93.71 ml/min (50-250); Globulin 4.1 g/dL (2.2-4.2); Glucose 238 mg/dL (70-99); Potassium 4.6 mmol/L (3.3-5.1); Protein, Total 7.4 g/dL (5.9-8.4); Sodium Level 132 mmol/L (133-145); Total Bilirubin 1.04 mg/dL (0.00-1.30)
--- NOTE | 2024-04-17 15:30 | CT_ITS ---
PROCEDURE: CTA CHEST W/WO CONTRAST REASON FOR EXAM: Shortness of breath, new diagnosis of cancer TECHNIQUE: CTA imaging of the chest with intravenous contrast. 3D reconstructions. COMPARISON: 03/27/2024. FINDINGS: Hardware: None. Lymph nodes: Numerous enlarged lymph nodes in the prevascular space measuring 15 mm in short axis. Anterior mediastinal mass with compression on the proximal right subclavian artery measuring 4.8 x 3.2 cm. Mediastinal masses surrounding of the trachea measuring 4.3 x 7.4 cm. Paraesophageal mass measuring 6.6 x 5.5 cm Heart: Cardiomegaly. No pericardial effusion. RV/LV Diameter Ratio: N/A Thoracic Aorta: No thoracic aortic aneurysm or dissection. Pulmonary Vessels: No evidence of acute pulmonary emboli through the major subsegmental branches. Most Proximal Level of Embolus (if embolus present): N/A Lungs and Airways: Diffuse emphysematous changes. 3.3 cm left upper lobe mass. Pleura: No pleural effusion. No pneumothorax. Upper Abdomen: Visualized portions of the upper abdominal viscera are unremarkable. Bones: Left lateral rib fractures with plate and screw fixation. CT/CTA Chest W/WO Contrast IMPRESSION: 1. No CT evidence of acute pulmonary embolism 2. Lymphadenopathy and masses about the mediastinum with paraesophageal mass s uggestive of neoplastic process 3. Diffuse emphysematous changes with right upper lobe mass also suggestive ne oplasm 4. Cardiomegaly One or more dose reduction techniques were used (e.g., Automated exposure contr ol, adjustment of the mA and/or kV according to patient size, use of iterative reconstruction technique). Reading Location: [facility]
--- NOTE | 2024-04-17 15:30 | CT_ITS ---
EXAM: BRAIN/HEAD WITHOUT CONTRAST CLINICAL HISTORY: Confusion COMPARISON: 12/31/2023 TECHNIQUE: Noncontrast images of the head with multiplanar reconstructions. Dose reduction techniques were used including intermediate exposure control (AEC),iterative reconstruction technique, and/or mA and/or KV dose adjustments based on patient's size. FINDINGS: CT HEAD FINDINGS: No acute intracranial hemorrhage, mass, mass effect, midline shift or pathologic extra-axial fluid collection. Nonspecific periventricular white matter changes are noted No hydrocephalus. Age- appropriate cerebral volume and white matter. Visualized paranasal sinuses and mastoid air cells are clear. The calvarium is grossly intact. CT/Brain/Head without Contrast IMPRESSION: 1. No acute intracranial abnormality. 2. Age-appropriate volume loss and remote small-vessel ischemic changes Reading Location: [facility]
--- NOTE | 2024-04-17 15:30 | CT_ITS ---
PROCEDURE: ABDOMEN/PELVIS W IV CONT ONLY REASON FOR EXAM: Diffuse abdominal pain TECHNIQUE: Abdomen and pelvis CT with intravenous contrast. COMPARISON: None. FINDINGS: Lung bases: Mild left pleural effusion with compressive atelectasis. Cardiomegaly with diffuse coronary artery calcifications Liver: Diffuse fatty infiltration. Multiple nonenhancing right hepatic masses with the largest measuring 2.7 cm in the inferior right hepatic lobe Gallbladder: Unremarkable. Spleen: Normal size. Pancreas: Normal size without evidence of mass surrounding inflammation or ductal dilation. Adrenals: Unremarkable. Kidneys: Normal renal sizes. No hydronephrosis. Bladder: Unremarkable. Reproductive Organs: Unremarkable. Bowel: Colonic diverticulosis without diverticulitis. Significant amount of stool noted throughout the colon. Correlate with constipation. Appendix: Normal. Lymph nodes: No suspicious lymph node enlargement. Vasculature: Mild diffuse atherosclerotic calcifications are noted. Peritoneum / Retroperitoneum: No ascites. No free air. Bones: Degenerative changes of the spine. Hernia: Moderate hiatal hernia CT/Abdomen/Pelvis W IV Cont ONLY IMPRESSION: 1. Significant amount of stool noted throughout the colon. Correlate with con stipation. 2. Indeterminate right hepatic masses. Primary versus metastatic disease is n ot excluded 3. Hepatic steatosis 4. Moderate hiatal hernia 5. Mild left pleural effusion with compressive atelectasis. 6. Cardiomegaly with diffuse coronary artery calcifications One or more dose reduction techniques were used (e.g., Automated exposure contr ol, adjustment of the mA and/or kV according to patient size, use of iterative reconstruction technique). Reading Location: [facility]
[2024-04-17 15:39] LABS: Lipase 20 U/L (13-75)
[2024-04-17 16:03] LABS: Bacteria 0 SEEN /hpf (None Seen); Mucous, Urine 0 SEEN /hpf (<or=2+)
[2024-04-17 16:08] LABS: Color, Urine Yellow (Yellow); Glucose, Dipstick 50 mg/dl (Normal); Ketone-Dipstick 15 mg/dl (Negative); Leukocyte Esterase-Dipstick 25 /ul (Negative); Nitrite-Dipstick Negative (Negative); Occult Blood-Urine Negative /ul (Negative); Protein-Dipstick 30 mg/dl (Negative); Urine Bilirubin Dipstick Negative (Negative); Urine Clarity Sl. Cloudy (Clear); Urine Urobilinogen 8 mg/dl (Normal)
[2024-04-17 16:19] LABS: Red Blood Cells-Urine 0 SEEN /hpf (0-5); Squamous Epithelial Cells - UA 0-5 SEEN /hpf (0-5); White Blood Cells 0-5 SEEN /hpf (0-5)
[2024-04-17 16:39] LABS: TROPONIN VARIANCE 2 HR 1; Troponin T High Sens 2 HR 31 ng/L (<=22)
--- NOTE | 2024-04-17 17:02 | HP.PCM.HOS_ITS ---
[facility] - General General Date of Service: 04/17/24 Chief Complaint: confusion. [facility] Narrative GIOVANNY LEONARDO, is a 73 M who presents with confusion. Normally the patient is able to do his ADLs but admits that he is not mentally as acute as he used to be in the past. No acknowledges that he is never been diagnosed with dementia nor mild cognitive impairment. Just confused today not knowing here but then actually happens from time to time. Complaining of shortness of breath and chest pain. So she brought to the emergency room where he underwent testing. Head CT showed no acute process but age-appropriate volume loss and remote small vessel ischemic changes. CAT scan of the abdomen pelvis showed significant stool noted throughout the colon. Mild left pleural effusion with compressive atelectasis. Moderate hiatal hernia. CTA of the chest showed no pulmonary embolism. Showed lymphadenopathy masses about the mediastinum and paraesophageal mass suggestive of neoplastic process. Diffuse emphysematous changes with right upper lobe mass also suggesting neoplasm. Much of the history is obtained through the emergency room physician as well as the patient's spouse, who is at bedside. Patient is confused and is not a reliable historian at this time. [facility] Medical History Wears glasses Wears dentures Uses wheelchair Walker as ambulation aid Ambulates with cane Prostate disease High cholesterol History of edema History of echocardiogram Cardiology follow-up encounter Lung mass Abnormal chest CT Chronic pain GERD (gastroesophageal reflux disease) CPAP (continuous positive airway pressure) dependence COPD (chronic obstructive pulmonary disease) ICD (implantable cardioverter-defibrillator) in place Pacemaker Seizures TIA (transient ischemic attack) Lung mass Cough with hemoptysis ICD (implantable cardioverter-defibrillator) in place Left-sided weakness Chest pain History of CAD (coronary artery disease) Syncope DNR (do not resuscitate) DNR (do not resuscitate) discussion Heart failure Lung nodule Obesity EKATERINA (obstructive sleep apnea) Chronic hypoxemic respiratory failure COPD (chronic obstructive pulmonary disease) Anemia Chronic hyperglycemia History of TIAs Conversion reaction Sick sinus syndrome Pacemaker battery depletion Hemiparesis, left Former smoker On home oxygen therapy Pacemaker Congestive heart failure (CHF) Myocardial infarct Chest pain Pulmonary embolism Dysarthria BiPAP (biphasic positive airway pressure) dependence Wears hearing aid in both ears Diabetes Stroke/cerebrovascular accident COPD (chronic obstructive pulmonary disease) History of fractured rib CAD (coronary artery disease) Essential (primary) hypertension Atherosclerotic heart disease [place] coronary artery w/angina pectoris EKATERINA (obstructive sleep apnea) Abnormal EKG DM type 2 (diabetes mellitus, type 2) Chronic respiratory failure Obesity Hyperlipidemia Home Medications ?Medication ?Instructions ?Recorded ?Last Taken ?Type aspirin 81 mg tablet,delayed 81 mg PO DAILY HEART HEAL TH 06/11/18 03/06/24 History release Held on 03/09/24. Instructions: Resume on 03/16/24. hold until cleared by pulmonology to resume it after EBUS atorvastatin 80 mg tablet 80 mg PO QHS CHOLESTEROL 03/06/24 History escitalopram oxalate 10 mg tablet 10 mg PO DAILY DEPRE SSION 06/11/18 03/06/24 History finasteride 5 mg tablet 5 mg PO DAILY PROSTATE 06/1103/06/24 History nitroglycerin 0.4 mg sublingual 0.4 mg sublingual Q5M PRN CHEST 07/22/18 01/17/20 Rx tablet PAIN #30 TABLETS pantoprazole 40 mg tablet,delayed 40 mg PO BID GERD 03/06/24 History release carvedilol 25 mg tablet 25 mg PO BID BLOOD PRESSURE 06/22/20 03/06/24 History ranolazine 500 mg tablet,extended 500 mg PO Q12H CHEST PAIN 06/22/20 03/06/24 History release,12 hr tamsulosin 0.4 mg capsule 0.4 mg PO QHS PROSTATE 08/1003/06/24 History clopidogrel 75 mg tablet (Plavix) 75 mg PO DAILY BLOOD THINNER 01/07/21 03/26/24 History Held on 03/09/24. Instructions: Resume on 03/16/24. hold until after EBUS with pulmonology and cleared to resume it by pulmonology albuterol sulfate 2.5 mg/3 mL 2.5 mg inhalation Q6H IN N 12/12/21 03/06/24 History (0.083 %) solution for nebulization SHORTNESS OF BREAT H/WHEEZING magnesium oxide 420 mg tablet 420 mg PO BID SUPPLEMENT 12/12/21 03/06/24 History multivitamin with minerals 1 tab PO DAILY SUPPLEMENT 1 03/06/24 History spironolactone 25 mg tablet 25 mg PO DAILY BLOOD PRESS URE 09/10/22 03/06/24 History (Aldactone) acetaminophen 325 mg tablet 650 mg PO 4X/DAY PRN PAIN 01/27/23 03/06/24 History (Tylenol) cholecalciferol (vitamin D3) 50 100 mcg PO DAILY SUPPL EMENT 03/04/23 03/06/24 History mcg (2,000 unit) capsule (D3-2000) levetiracetam 500 mg tablet 500 mg PO BID seizure 05/1703/06/24 History furosemide 40 mg tablet 40 mg PO DAILY EDEMA 4 03/06/24 History fluticasone fur. 200 mcg-umeclid 1 inh inhalation TATY Y #60 ea 12/14/23 03/06/24 Rx 62.5 mcg-vilant 25 mcg inhalat.powder (Trelegy Ellipta) guaifenesin 100 mg/5 mL oral 200 mg PO TID PRN cough 1 03/01/23 Unknown History liquid (Adult Tussin Chest Congestion) guaifenesin 600 mg tablet, 600 mg PO BID PRN cough 03/06/24 History extended release 12 hr insulin regular hum U-500 conc 500 130 unit subcut BID DIABETES 12/31/23 03/06/24 History unit/mL(3 mL) subcut pen (Humulin R U-500 (Conc) Insulin Kwikpen) codeine sulfate 15 mg tablet 15 mg PO Q6H PRN cough 2 days #8 02/14/24 Unknown Rx tabs ondansetron 8 mg disintegrating 8 mg PO Q8H PRN nausea and 02/22/24 Unknown Rx tablet vomiting #15 tabs ondansetron 8 mg disintegrating 8 mg PO Q8H PRN nausea and 04/04/24 Unknown Rx tablet vomiting #12 tabs azithromycin 250 mg tablet 250 mg PO DAILY #6 TABLETS 04/10/24 Unknown Rx prednisone 20 mg tablet 40 mg (2 x 20 mg) PO DAILY 5 days 04/10/24 Unknown Rx #10 tabs cyclobenzaprine 10 mg tablet 10 mg PO BID 04/17/24 Unk nown History loratadine 10 mg tablet 10 mg PO DAILY 04/17/24 Unkn own History (Allerclear) prednisolone acetate 1 % eye 1 drp RIGHT EYE Q4H 04/17 Unknown History drops,suspension Allergy/AdvReac Type Severity Reaction Status Date / Time ezetimibe Allergy Unknown Verified 04/13/24 13:18 Fish Containing Products Allergy Unknown Verified 04/13/24 13:18 glyburide Allergy Unknown Verified 04/13/24 13:18 isosorbide Allergy PT UNSURE Verified 04/13/24 13:18 OF REACTION lisinopril Allergy Unknown Verified 04/13/24 13:18 metformin Allergy Nausea Verified 04/13/24 13:18 metoprolol Allergy Unknown Verified 04/13/24 13:18 simvastatin Allergy Unknown Verified 04/13/24 13:18 tramadol Allergy Other Verified 04/13/24 13:18 iron AdvReac Mild Vomiting Verified 04/13/24 13:18 gabapentin AdvReac Other Verified 04/13/24 13:18 Family History Father No problems noted. unable to obtain Surgical History History of cardiac catheterization History of colonoscopy History of surgery History of coronary artery stent placement History of cholecystectomy History of knee replacement procedure of left knee History of permanent cardiac pacemaker placement (01/14/21) H/O coronary artery bypass surgery History of coronary artery stent placement Social History household members: spouse Smoking Status: Former smoker details: Unknown substance use type: does not use ROS ROS Narrative Planes of chest pain when he takes in a deep breath and coughs. Positive chills. All review of systems were negative except as mentioned above in the history of present illness and the other review of systems. Vital Signs Vital Signs Vital Signs: 04/17/24 13:26 04/17/24 13:29 04/17/24 14:16 Temperature 36.8 C Temperature Source Oral Pulse Rate 84 75 Respiratory Rate 19 H 16 Respiratory Effort Short of Breath Blood Pressure 131/64 H Blood Pressure Mean 86 Pulse Ox 96 Oxygen Delivery Method Room Air 04/17/24 14:29 04/17/24 15:00 04/17/24 15:59 Temperature 36.9 C 36.7 C 36.8 C Temperature Source Oral Oral Oral Pulse Rate 76 74 64 Respiratory Rate 20 H 25 H 19 H Respiratory Effort Blood Pressure 89/74 L 125/65 H 130/78 H Blood Pressure Mean 79 85 95 Pulse Ox 95 100 97 Oxygen Delivery Method Room Air Room Air 04/17/24 16:48 Temperature 37.1 C Temperature Source Pulse Rate 67 Respiratory Rate 19 H Respiratory Effort Blood Pressure 133/69 H Blood Pressure Mean 90 Pulse Ox 97 Oxygen Delivery Method Weight Weight: 91.9 kg Body Mass Index (BMI) 29.0 Physical Exam Const alert and no apparent distress Constitutional Narrative: Oriented to self and place. Knew the month but the year was 2004. General Appearance: cooperative HEENT normocephalic and head/scalp atraumatic HEENT Narrative: Mucous membranes dry Neck no lymphadenopathy Neck Narrative: No thyromegaly Resp Resp Narrative: Diminished breath sounds bilaterally. Cardio regular rate, regular rhythm, S1 normal heart sound and S2 normal heart sound GI normal to inspection, nondistended, normoactive bowel sounds, soft to palpation, non-tender and non-distended Auscultation: hyperactive bowel sounds Extremity normal to inspection and no clubbing, cyanosis or edema Neuro moves all extremities Sensorium / Orientation: awake, alert, oriented to person and oriented to place; Negative for oriented to time Psych affect normal Results Lab / Micro Data Attestation: I reviewed the patient's lab results. 04/17/24 13:49 04/17/24 13:49 Labs: Laboratory Results - last 24 hr 04/17/24 13:49: WBC 8.0, RBC 4.51 L, Hgb 12.9 L, Hct 38.7 L, MCV 85.8, MCH 28.6, MCHC 33.3, RDW Std Deviation 44.8 H, RDW Coeff of Cinda 14.7 H, Plt Count 236, MPV 10.6, Immature Gran % (Auto) 0.200, Neut % (Auto) 82.8 H, Lymph % (Auto) 9.3 L, Bennett % (Auto) 7.0, Eos % (Auto) 0.7, Baso % (Auto) 0.0, Absolute Neuts (auto) 6.7, Absolute Lymphs (auto) 0.75 L, Nucleated RBC % 0, PT 14.9, INR 1.2, APTT 39.4 H, Sodium 132 L, Potassium 4.6, Chloride Direct 93 L, Carbon Dioxide 26.3, Anion Gap 13, BUN 26 H, Creatinine 0.78, Estim Creat Clear Calc 93.71, Est GFR (MDRD) Non-Af 94, BUN/Creatinine Ratio 32.9 H, Glucose 238 H, Calcium 10.7, Total Bilirubin 1.04, AST 23, ALT 6, Alkaline Phosphatase 113, Troponin T High Sens 32 H, Total Protein 7.4, Albumin 3.3 L, Globulin 4.1, Albumin/Globulin Ratio 0.8 L, Lipase 20 04/17/24 13:58: POC Glucose 247 H 04/17/24 14:10: Lactic Acid 1.6 04/17/24 15:52: Urine Color Yellow, Urine Clarity Sl. Cloudy, Urine pH 6.0, Ur Specific [place] 1.020, Urine Protein 30 H, Urine Glucose (UA) 50 H, Urine Ketones 15 H, Urine Occult Blood Negative, Urine Nitrite Negative, Urine Bilirubin Negative, Urine Urobilinogen 8 H, Ur Leukocyte Esterase 25 H, Urine RBC 0 SEEN, Urine WBC 0-5 SEEN, Ur Squamous Epith Cells 0-5 SEEN, Urine Bacteria 0 SEEN, Urine Mucus 0 SEEN 04/17/24 16:05: Troponin T Hi Sens 2 Hr 31 H, Troponin T Hi Sens 2Hr Delta 1 Micro: Microbiology 04/17/24 14:10 Mucosa - Nose SARS-CoV-2, Influenza & RSV (PCR) - Final ABG Data ABG results: ABG 04/17/24 14:16 Specimen Type JULISSA Sample Site Not entered O2 % 21.0 VBG pH 7.44 H VBG pO2 34 VBG HCO3 33 H VBG Total CO2 34 H VBG O2 Sat (Calc) 67 VBG Base Excess 8 H POC Mix VBG pCO2 Pt Tmp 47.8 O2 Delivery Device Room Air EKG Initial EKG: Attestation: I personally reviewed and interpreted this EKG as follows: Prior EKG tracings: available for review EKG Rhythm Intrepretation: Atrial Paced Imaging Radiology Impression Chest X-Ray 04/17/24 15:20 IMPRESSION: Cardiomegaly with pulmonary vascular congestion. Reading Location: [facility] Abdomen/Pelvis CT 04/17/24 15:30 IMPRESSION: 1. Significant amount of stool noted throughout the colon. Correlate with constipation. 2. Indeterminate right hepatic masses. Primary versus metastatic disease is not excluded 3. Hepatic steatosis 4. Moderate hiatal hernia 5. Mild left pleural effusion with compressive atelectasis. 6. Cardiomegaly with diffuse coronary artery calcifications One or more dose reduction techniques were used (e.g., Automated exposure control, adjustment of the mA and/or kV according to patient size, use of iterative reconstruction technique). Reading Location: [facility] Brain CT 04/17/24 15:30 IMPRESSION: 1. No acute intracranial abnormality. 2. Age-appropriate volume loss and remote small-vessel ischemic changes Reading Location: [facility] Chest CTA 04/17/24 15:30 IMPRESSION: 1. No CT evidence of acute pulmonary embolism 2. Lymphadenopathy and masses about the mediastinum with paraesophageal mass suggestive of neoplastic process 3. Diffuse emphysematous changes with right upper lobe mass also suggestive neoplasm 4. Cardiomegaly One or more dose reduction techniques were used (e.g., Automated exposure control, adjustment of the mA and/or kV according to patient size, use of iterative reconstruction technique). Reading [facility] Code[facility]ISTIANO Assessment & Plan Assessment/Plan (1) COPD with acute exacerbation: PLAN: Diminished breath sounds bilaterally. Patient's pulse ox is actually okay at 95% on room air. Will add bronchodilators and methylprednisolone. He has a COVID, influenza and RSV was negative. (2) Encephalopathy: PLAN: I suspect due to the COPD exacerbation on top of what I suspect is either mild cognitive impairment or dementia. Also patient appears to be dehydrated. Patient has not been formally diagnosed with either of those. But the does endorse that he on good days may not know the year. Avoid potentiating medications. Given the dehydration, will hold off on his diuretics with furosemide and spironolactone. Will give a liter of IV fluids. PLAN: Plan Elevated troponin: Slightly elevated at 32 but follow-up enzymes went down. Had no feelers anything acute cardiac going on we will but will monitor the patient on telemetry at least for tonight. Assume that the patient had no further events that patient would likely de-escalated to medical surgical status but will defer to the oncoming physician to determine that. Small cell lung cancer: Diagnosed on [facility] from March. states that the patient has VA insurance and needed approval to see if VA oncologist. Says that he was supposed to see the oncologist tomorrow but they still do not have the insurance approval. I will ask case management to see if they have any insight in regards to this approval process of VA insurance to see VA providers. But this appears to be stage IV with liver metastasis. Diabetes mellitus type 2: Insulin-dependent. Patient on U-500. Will add sliding scale insulin as well. Seizure disorder: Continue levetiracetam. BPH: Continue tamsulosin. Hyperlipidemia: Continue with atorvastatin. VTE prophylaxis with enoxaparin CODE STATUS: Per previous documentation, patient is DNR Comfort Care arrest no intubation. Charges/Coding Visit Charges Inpatient E&M: 27237 Init Hosp L3
--- NOTE | 2024-04-17 17:30 | CASEMGMT ---
Care Management Face to Face with patient for initial transition planning/care coordination assessment in the ED.? This appeals writer introduced self and role at [facility]. Patient alert however had a preference of his , Lucina, to answer questions. ?Care providers, pharmacy, and demographics verified. Admitting Diagnosis: COPD with acute exacerbation and FTT Other diagnosis history: Including but may not be limited to: CVA, CAD, EKATERINA, Pacemaker, small cell lung cancer, prostate disease, chronic pain, ICD, KADEEM, seizures, CHF, DM, HTN, and Chronic Hyperglycemia. PCP: Dr. De Paz Specialists: Oncologist: stated she didn?t know. Castings Drafter: Dr. Schmidt. Preferred Pharmacy: Pharmacy through the [place] or if it?s an emergency, [facility]. Insurance: [place] and [place]. Prescription Benefit: Yes Living Will/HPOA: ?Yes LNOK: Patient?s , Lucina and a son and a daughter. Patient?s stated there is no contact at all with patient?s daughter. Patient?s son, Robert, from [place], was identified as a support. Living Arrangements: Patient lives in a one story home with his .? There are 2 steps leading in/out of the house which patient is able to navigate without difficulty.? There is also a handrail that patient is able to use if needed. Patient?s denied any environmental barriers. Transportation: Patient?s drives the majority of the time however she admitted that patient drives when she?s sick although patient isn?t supposed to drive according to his . DME: Wheelchair, wheelchair ramp, shower chair, rollator, power scooter, standard cane, lift chair, grab bars by shower, RTS, hearing aids, and Bi-PAP. Patient?s stated patient used to be on oxygen but was taken off. HHC: No history of and not needed. SNF/Rehab: Patient?s reported patient has had 2 separate admissions to [facility] which patient?s stated she does not want patient to ever return to.? First experience was described as a positive one, the second was not. Community Resources: [facility] History: Anxiety and Depression Patient goals: Patient wishes to discharge home, denies need for home health care at this time. Patient?s was very anxious about which insurance to list as the primary insurance to bill services to and would like to talk with a CM about which one she should list so she doesn?t get a large bill.? Patient stated the [facility] has previously denied claims and have sent her large bills. Disposition Plan: admission to acute; RN CM/SW to follow for discharge planning needs that may arise. Elodia Galan, PHYSICIAN/ALLERGY/IMMUNOLOGY, DIRECTOR OF SAFETY
[2024-04-17 17:49] LABS: Pro- Brain NATRIURETIC PEPTIDE 475 pg/mL (<=900)
[2024-04-17] MEDS: Carvedilol 25 MG Tablet PO (18:36)
[2024-04-17] MEDS: 0.9% Normal Saline (1000mL) 1,000 ML 150 ML IV (18:53)
[2024-04-17] MEDS: Bisacodyl 10 MG Suppository RC (18:54)
[2024-04-17] MEDS: cycloBENZAPRine HCl 10 MG Tablet PO (21:27)
[2024-04-17] MEDS: levETIRAcetam 500 MG Tablet PO (21:27)
[2024-04-17] MEDS: prednisoLONE eye drops (5 mL) 1 DROP OPTH.BTL 1 DRP RIGHT EYE (21:27)
[2024-04-17] MEDS: Atorvastatin Calcium 80 MG Tablet PO (21:27)
[2024-04-17] MEDS: Tamsulosin HCl 0.4 MG Capsule PO (21:29)
[2024-04-17] MEDS: Pantoprazole Sodium 40 MG Tablet PO (21:29)
[2024-04-17] MEDS: Ranolazine 500 MG Tablet PO (21:29)
[2024-04-18] VITALS (9 sets, daily range): BP systolic 110–126; BP diastolic 55–73; PULSE 60–66; RESP 15–22; TEMP 36.5–37.1; O2SAT 93–100
--- NOTE | 2024-04-18 02:05 | NURSING ---
This RN to taking over care at this time.
[2024-04-18] MEDS: 0.9% Saline Lock 10 ML Syringe IV ×2 (05:34→14:43)
[2024-04-18 07:15] LABS: Absolute Neutrophil Count 3.7 X10^3/uL (2.0-7.7); Hematocrit 34.5 % (40-54); Hemoglobin 11.6 g/dL (13.0-16.5); Lymphocyte % 7.3 % (19-41); Mean Corp Hgb Conc 33.6 g/dL (32-36); Mean Corpuscular Hgb 28.9 pg (27.0-32.0); Mean Corpuscular Volume 85.8 fL (80-94); Mean Platelet Vol. 10.2 fl (6.2-12.0); Monocyte# 0.09 X10^3/uL; Monocyte% 2.2 % (0-10); NRBC Flagged by Analyzer 0 % (0-5); POSITIVE DIFFERENTIAL YES; Platelet Count 216 K/mm3 (150-450); RBC Distribution Width CV 14.7 % (11.6-14.6); RBC Distribution Width SD 45.8 fl (35.1-43.9); Red Blood Count 4.02 M/mm3 (4.6-6.2); White Blood Count 4.1 K/mm3 (4.4-11.0)
[2024-04-18 07:41] LABS: ALB/GLOB Ratio 0.9 RATIO (0.9-2.4); AST(SGOT) 17 U/L (<=37); Alanine Aminotransfer ALT/SGPT 6 U/L (<=46); Albumin, Serum 3.1 g/dL (3.4-4.8); Alkaline Phosphatase 95 U/L (40-129); Anion Gap 9 (5-15); BUN 21 mg/dL (4-19); BUN/Creat Ratio 33.9 RATIO (10-20); Carbon Dioxide 26.9 mmol/L (22.0-29.0); Chloride 96 mmol/L (96-108); Creatinine, Serum 0.63 mg/dL (0.70-1.20); EST Glomerular Filtration Rate 100 (>60); Estimated Creatinine Clearance 84.91 ml/min (50-250); Globulin 3.6 g/dL (2.2-4.2); Glucose 271 mg/dL (70-99); Potassium 4.7 mmol/L (3.3-5.1); Protein, Total 6.6 g/dL (5.9-8.4); Sodium Level 131 mmol/L (133-145); Total Bilirubin 0.75 mg/dL (0.00-1.30)
[2024-04-18] MEDS: Ipratropium/Albuterol Sulfate 3 ML AMPUL.NEB INHALATION ×2 (08:13→20:15)
[2024-04-18 09:04] LABS: Bedside Glucose 259 mg/dL (74-106)
[2024-04-18] MEDS: Escitalopram Oxalate 10 MG Tablet PO (09:06)
[2024-04-18] MEDS: Ranolazine 500 MG Tablet PO ×2 (09:06→21:13)
[2024-04-18] MEDS: levETIRAcetam 500 MG Tablet PO ×2 (09:06→21:13)
[2024-04-18] MEDS: Enoxaparin 40 MG/0.4 ML Syringe SC (09:06)
[2024-04-18] MEDS: cycloBENZAPRine HCl 10 MG Tablet PO ×2 (09:06→21:20)
[2024-04-18] MEDS: Pantoprazole Sodium 40 MG Tablet PO ×2 (09:06→21:13)
[2024-04-18] MEDS: Insulin U-500 UNITS/ML PEN 125 UNITS SC ×2 (09:06→17:16)
[2024-04-18] MEDS: Carvedilol 25 MG Tablet PO ×2 (09:06→17:15)
[2024-04-18] MEDS: Finasteride 5 MG Tablet PO (09:06)
[2024-04-18] MEDS: Loratadine 10 MG Tablet PO (09:06)
--- NOTE | 2024-04-18 10:19 | PN.HOSP_ITS ---
Reason for Visit Reason for Visit: Diagnoses Encephalopathy, unspecified (04/17/24) Chronic obstructive pulmonary disease with (acute) exacerbation (04/17/24) Objective Data Objective Data Vital Signs: Vital Signs Temp Pulse Resp BP Pulse Ox O2 Del Method O2 Flow Rate 97.9 F 60 18 126/71 H 100 Room Air 1 04/18/24 09:01 04/18/24 09:01 04/18/24 09:01 04/18/24 09:01 04/18/24 09:01 04/18/24 09:32 04/17/24 21:24 FiO2 21 04/17/24 21:20 Oxygen Flow Rate (L/min) 1 Oxygen Delivery Method Room Air Weight: 192 lb 0.362 oz Body Mass Index (BMI) 27.5 Intake & Output: Intake and Output for Last 24 Hours 04/16/24 04/17/24 04/18/24 23:59 23:59 23:59 Intake Total 1000 / 1100 997.5 / 997.5 Balance 1000 / 1100 997.5 / 997.5 Lab / Micro Data 04/18/24 06:55 04/18/24 06:55 Labs: Laboratory Results - last 24 hr 04/17/24 13:49: WBC 8.0, RBC 4.51 L, Hgb 12.9 L, Hct 38.7 L, MCV 85.8, MCH 28.6, MCHC 33.3, RDW Std Deviation 44.8 H, RDW Coeff of Cinda 14.7 H, Plt Count 236, MPV 10.6, Immature Gran % (Auto) 0.200, Neut % (Auto) 82.8 H, Lymph % (Auto) 9.3 L, [place] % (Auto) 7.0, Eos % (Auto) 0.7, Baso % (Auto) 0.0, Absolute Neuts (auto) 6.7, Absolute Lymphs (auto) 0.75 L, Nucleated RBC % 0, PT 14.9, INR 1.2, APTT 39.4 H, Sodium 132 L, Potassium 4.6, Chloride Direct 93 L, Carbon Dioxide 26.3, Anion Gap 13, BUN 26 H, Creatinine 0.78, Estim Creat Clear Calc 93.71, Est GFR (MDRD) Non-Af 94, BUN/Creatinine Ratio 32.9 H, Glucose 238 H, Calcium 10.7, Total Bilirubin 1.04, AST 23, ALT 6, Alkaline Phosphatase 113, Troponin T High Sens 32 H, B-Natriuretic Peptide Cancelled, NT pro BNP II 475, Total Protein 7.4, Albumin 3.3 L, Globulin 4.1, Albumin/Globulin Ratio 0.8 L, Lipase 20 04/17/24 13:58: POC Glucose 247 H 04/17/24 14:10: Lactic Acid 1.6 04/17/24 15:52: Urine Color Yellow, Urine Clarity Sl. Cloudy, Urine pH 6.0, Ur Specific Stevenson 1.020, Urine Protein 30 H, Urine Glucose (UA) 50 H, Urine Ketones 15 H, Urine Occult Blood Negative, Urine Nitrite Negative, Urine Bilirubin Negative, Urine Urobilinogen 8 H, Ur Leukocyte Esterase 25 H, Urine RBC 0 SEEN, Urine WBC 0-5 SEEN, Ur Squamous Epith Cells 0-5 SEEN, Urine Bacteria 0 SEEN, Urine Mucus 0 SEEN 04/17/24 16:05: Troponin T Hi Sens 2 Hr 31 H, Troponin T Hi Sens 2Hr Delta 1 04/18/24 06:55: WBC 4.1 L, RBC 4.02 L, Hgb 11.6 L, Hct 34.5 L, MCV 85.8, MCH 28.9, MCHC 33.6, RDW Std Deviation 45.8 H, RDW Coeff of Cinda 14.7 H, Plt Count 216, MPV 10.2, Immature Gran % (Auto) 0.500, Neut % (Auto) 90.0 H, Lymph % (Auto) 7.3 L, [place] % (Auto) 2.2, Eos % (Auto) 0.0, Baso % (Auto) 0.0, Absolute Neuts (auto) 3.7, Absolute Lymphs (auto) 0.30 L, Nucleated RBC % 0, Sodium 131 L , Potassium 4.7, Chloride Direct 96, Carbon Dioxide 26.9, Anion Gap 9, BUN 21 H, Creatinine 0.63 L, Estim Creat Clear Calc 84.91, Est GFR (MDRD) Non-Af 100, B UN/Creatinine Ratio 33.9 H, Glucose 271 H, Calcium 10.0, Total Bilirubin 0.75, AST 17, ALT 6, Alkaline Phosphatase 95, Total Protein 6.6, Albumin 3.1 L, Globulin 3.6, Albumin/Globulin Ratio 0.9 04/18/24 08:45: POC Glucose 259 H Micro: Microbiology 04/17/24 14:10 Mucosa - Nose SARS-CoV-2, Influenza & RSV (PCR) - Final ABG Data ABG results: ABG 04/17/24 14:16 Specimen Type JULISSA Sample Site Not entered O2 % 21.0 VBG pH 7.44 H VBG pO2 34 VBG HCO3 33 H VBG Total CO2 34 H VBG O2 Sat (Calc) 67 VBG Base Excess 8 H POC Mix VBG pCO2 Pt Tmp 47.8 O2 Delivery Device Room Air Radiography Diagnostic Testing: Radiology Impression Chest X-Ray 04/17/24 15:20 IMPRESSION: Cardiomegaly with pulmonary vascular congestion. Reading [facility] Abdomen/Pelvis CT 04/17/24 15:30 IMPRESSION: 1. Significant amount of stool noted throughout the colon. Correlate with constipation. 2. Indeterminate right hepatic masses. Primary versus metastatic disease is not excluded 3. Hepatic steatosis 4. Moderate hiatal hernia 5. Mild left pleural effusion with compressive atelectasis. 6. Cardiomegaly with diffuse coronary artery calcifications One or more dose reduction techniques were used (e.g., Automated exposure control, adjustment of the mA and/or kV according to patient size, use of iterative reconstruction technique). Reading Location: [facility] Brain CT 04/17/24 15:30 IMPRESSION: 1. No acute intracranial abnormality. 2. Age-appropriate volume loss and remote small-vessel ischemic changes Reading Location: [facility] Chest CTA 04/17/24 15:30 IMPRESSION: 1. No CT evidence of acute pulmonary embolism 2. Lymphadenopathy and masses about the mediastinum with paraesophageal mass suggestive of neoplastic process 3. Diffuse emphysematous changes with right upper lobe mass also suggestive neoplasm 4. Cardiomegaly One or more dose reduction techniques were used (e.g., Automated exposure control, adjustment of the mA and/or kV according to patient size, use of iterative reconstruction technique). Reading Location: [facility] Physical Exam Narrative Seen and examined. Patient was admitted for confusion, decreased oral intake, no physical activity, sleeping all day after breakfast till supper as per the . He also had shortness of breath but his stated he has always been short of breath for last several years. General: Alert, Oriented x3, Cooperative HEENT: Bilateral profound hearing impairment. Atraumatic, PERRLA, EOMI, Normocephalic Oral: No Gingival or Mucosal Lesions/ Ulcerations Neck: Supple, No JVD, Negative Carotid Bruits Chest wall/Lungs: Air entry diminished in bilateral lung bases. No crepitation/rhonchi Cardiovascular: Regular rate, Regular Rhythm, Normal S1, Normal S2, systolic murmur Abdomen: Bowel Sounds Present, Soft, Non Tender, Non-Distended : No dysuria. No renal angle tenderness. No suprapubic tenderness. Extremities: No edema, Capillary Refill Less than 3 Seconds Skin: No rashes, No breakdown Musculoskeletal: No Tenderness to Palpation of Joints or Extremities Neurological: Cranial nerves II-XII grossly intact, DTR 2+/4. No acute focal neurological deficit. Psych/Mental Status: Flat affect Assessment & Plan Assessment/Plan (1) COPD with acute exacerbation: PLAN: 73-year-old gentleman was admitted with chief complaint of confusion, decreased oral intake generalized weakness and malaise, for several weeks Diminished breath sounds bilaterally. Patient's pulse ox is actually okay at 95% on room air. Continue bronchodilators and methylprednisolone. He has a COVID, influenza and RSV was negative. (2) Encephalopathy: PLAN: I suspect due to the COPD exacerbation on top of what I suspect is either mild cognitive impairment or dementia. Possible metabolic encephalopathy from dehydration. CT abdomen also shows significant stool in the colon Diuretics on hold. IV fluid was given PLAN: Plan Elevated troponin: Slightly elevated at 32 but follow-up enzymes went down. Elevated cardiac troponins indeterminant. 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 states that the patient has [facility] insurance and needed approval to see if VA oncologist. Says that he was supposed to see the oncologist tomorrow but they still do not have the insurance approval. I will ask case management to see if they have any insight in regards to this approval process of VA insurance to see VA providers. But this appears to be stage IV with liver metastasis. CT chest shows no evidence of acute pulmonary embolism but lymphadenopathy or mass in mediastinum and paraesophageal mass with compression of proximal right subclavian artery and surrounding the trachea. 3.3 cm left upper lobe mass. CT abdomen shows multiple nonenhancing right hepatic mass with the largest measuring 2.7 cm. Speech swallow ordered Diabetes mellitus type 2: Insulin-dependent. Patient on U-500. Will add sliding scale insulin as well. Seizure disorder: Continue levetiracetam. BPH: Continue tamsulosin. Hyperlipidemia: Continue with atorvastatin. VTE prophylaxis with enoxaparin CODE STATUS: Per previous documentation, patient is DNR Comfort Care arrest no intubation. Charges/Coding Visit Charges Inpatient E&M: 68538 Subs Hosp L2
--- NOTE | 2024-04-18 12:30 | CASEMGMT ---
KRISTI GERONIMO in to discuss needs at discharge with patient, at bedside. KRISTI GERONIMO discussed progress with therapy, recommendations for home. KRISTI GERONIMO dicussed HHC, agreeable and prefers [facility], declined list. states that they have trouble scheduling PCP appt at [facility]. declined further needs. KRISTI GERONIMO called [facility] to schedule follow-up appt. PCP is Dr. Sibley and he has no appts available in person. KRISTI GERONIMO left message with his nurse requesting call back to see if Dr. Sibley will sign for [facility]. KRISTI GERONIMO called and made referral to [facility], awaiting call back.
[2024-04-18 13:30] LABS: Bedside Glucose 246 mg/dL (74-106)
--- NOTE | 2024-04-18 13:30 | CASEMGMT ---
KRISTI GERONIMO received call back from [facility] and they are able to accept patient with start of care for . KRISTI GERONIMO updated discharge plan.
[2024-04-18 17:35] LABS: Bedside Glucose 185 mg/dL (74-106)
[2024-04-18] MEDS: Tamsulosin HCl 0.4 MG Capsule PO (21:13)
[2024-04-18] MEDS: Atorvastatin Calcium 80 MG Tablet PO (21:14)
[2024-04-18 21:40] LABS: Bedside Glucose 264 mg/dL (74-106)
--- NOTE | 2024-04-18 23:21 | NURSING ---
This RN taking over care at this time.
[2024-04-19] VITALS (9 sets, daily range): BP systolic 115–136; BP diastolic 62–73; PULSE 58–68; RESP 17–20; TEMP 35.2–36.7; O2SAT 92–100
[2024-04-19] MEDS: 0.9% Saline Lock 10 ML Syringe IV ×4 (05:51→23:18)
[2024-04-19] MEDS: Ipratropium/Albuterol Sulfate 3 ML AMPUL.NEB INHALATION ×3 (07:04→19:34)
[2024-04-19 07:27] LABS: Absolute Lymphocyte Count 0.38 X10^3/uL (0.83-4.51); Absolute Neutrophil Count 12.2 X10^3/uL (2.0-7.7); Basophil# 0.01 X10^3/uL; Basophil% 0.1 % (0-1); Hematocrit 36.8 % (40-54); Hemoglobin 12.3 g/dL (13.0-16.5); Lymphocyte # 0.38 X10^3/ul (0.83-4.51); Lymphocyte % 2.9 % (19-41); Mean Corp Hgb Conc 33.4 g/dL (32-36); Mean Corpuscular Hgb 28.8 pg (27.0-32.0); Mean Corpuscular Volume 86.2 fL (80-94); Mean Platelet Vol. 10.5 fl (6.2-12.0); Monocyte# 0.47 X10^3/uL; Monocyte% 3.6 % (0-10); NRBC Flagged by Analyzer 0 % (0-5); Neutrophil # 12.16 X10^3/uL (2.7-7.7); POSITIVE DIFFERENTIAL YES; Platelet Count 233 K/mm3 (150-450); RBC Distribution Width CV 14.9 % (11.6-14.6); RBC Distribution Width SD 45.8 fl (35.1-43.9); Red Blood Count 4.27 M/mm3 (4.6-6.2); White Blood Count 13.1 K/mm3 (4.4-11.0)
[2024-04-19 08:53] LABS: Anion Gap 9 (5-15); BUN 22 mg/dL (4-19); BUN/Creat Ratio 35.2 RATIO (10-20); Calcium,Total 10.5 mg/dL (7.6-11.0); Carbon Dioxide 28.7 mmol/L (21.0-32.0); Chloride 98 mmol/L (98-108); Creatinine, Serum 0.63 mg/dL (0.70-1.20); EST Glomerular Filtration Rate 100 (>60); Estimated Creatinine Clearance 84.91 ml/min (50-250); Glucose 56 mg/dL (70-99); Potassium 4.3 mmol/L (3.3-5.1); Sodium Level 136 mmol/L (133-145)
[2024-04-19] MEDS: Finasteride 5 MG Tablet PO (09:54)
[2024-04-19] MEDS: Carvedilol 25 MG Tablet PO ×2 (09:54→17:37)
[2024-04-19] MEDS: levETIRAcetam 500 MG Tablet PO ×2 (09:54→20:59)
[2024-04-19] MEDS: Pantoprazole Sodium 40 MG Tablet PO ×2 (09:54→20:59)
[2024-04-19] MEDS: Escitalopram Oxalate 10 MG Tablet PO (09:54)
[2024-04-19] MEDS: cycloBENZAPRine HCl 10 MG Tablet PO ×2 (09:54→20:59)
[2024-04-19] MEDS: Loratadine 10 MG Tablet PO (09:54)
[2024-04-19] MEDS: Ranolazine 500 MG Tablet PO ×2 (09:54→20:59)
[2024-04-19] MEDS: Enoxaparin 40 MG/0.4 ML Syringe SC (09:56)
[2024-04-19 10:20] LABS: Bedside Glucose 65 mg/dL (74-106)
[2024-04-19 10:20] LABS: Bedside Glucose 72 mg/dL (74-106)
--- NOTE | 2024-04-19 10:31 | PCM.DC.SUM ---
Providers Date of Admission: 04/17/24 Date of Discharge: 04/19/24 Primary Care Physician: [facility] Reason For Visit: CONFUSION Diagnosis Discharge Diagnosis (1) COPD with acute exacerbation: Status: Chronic Code(s): J44.1 - Chronic obstructive pulmonary disease with (acute) exacerbation Plan: 73-year-old gentleman was admitted with chief complaint of confusion, decreased oral intake generalized weakness and malaise, for several weeks Diminished breath sounds bilaterally. Patient's pulse ox is actually okay at 95% on room air. Continue bronchodilators and methylprednisolone. He has a COVID, influenza and RSV was negative. (2) Encephalopathy: Status: Acute Code(s): G93.40 - Encephalopathy, unspecified Plan: I suspect due to the COPD exacerbation on top of what I suspect is either mild cognitive impairment or dementia. Possible metabolic encephalopathy from dehydration. CT abdomen also shows significant stool in the colon Diuretics on hold. IV fluid was given Plan Elevated troponin: Slightly elevated at 32 but follow-up enzymes went down. Elevated cardiac troponins indeterminant. Metastatic small cell lung cancer with multiple mediastinal and paraesophageal mass: Diagnosed on [facility] from March. states that the patient has [place] insurance and needed approval to see if [place] oncologist. Says that he was supposed to see the oncologist tomorrow but they still do not have the insurance approval. I will ask case management to see if they have any insight in regards to this approval process of [place] insurance to see VA providers. But this appears to be stage IV with liver metastasis. CT chest shows no evidence of acute pulmonary embolism but lymphadenopathy or mass in mediastinum and paraesophageal mass with compression of proximal right subclavian artery and surrounding the trachea. 3.3 cm left upper lobe mass. CT abdomen shows multiple nonenhancing right hepatic mass with the largest measuring 2.7 cm. Speech swallow ordered Diabetes mellitus type 2: Insulin-dependent. Patient on U-500. Will add sliding scale insulin as well. Seizure disorder: Continue levetiracetam. BPH: Continue tamsulosin. Hyperlipidemia: Continue with atorvastatin. VTE prophylaxis with enoxaparin CODE STATUS: Per previous documentation, patient is DNR Comfort Care arrest no intubation. Medications at Discharge Home Medications aspirin 81 mg tablet,delayed release 81 mg PO DAILY HEART HEALTH 06/11/18 Held on 03/09/24. Instructions: Resume on 03/16/24. hold until cleared by pulmonology to resume it after EBUS atorvastatin 80 mg tablet 80 mg PO QHS CHOLESTEROL 06/11/18 escitalopram oxalate 10 mg tablet 10 mg PO DAILY DEPRESSION 06/11/18 finasteride 5 mg tablet 5 mg PO DAILY PROSTATE 06/11/18 nitroglycerin 0.4 mg sublingual tablet 0.4 mg sublingual Q5M PRN CHEST PAIN #30 TABLETS 07/22/18 pantoprazole 40 mg tablet,delayed release 40 mg PO BID GERD 05/18/20 carvedilol 25 mg tablet 25 mg PO BID BLOOD PRESSURE 06/22/20 ranolazine 500 mg tablet,extended release,12 hr 500 mg PO Q12H CHEST PAIN 06/22/20 tamsulosin 0.4 mg capsule 0.4 mg PO QHS PROSTATE 08/10/20 clopidogrel 75 mg tablet (Plavix) 75 mg PO DAILY BLOOD THINNER 01/07/21 Held on 03/09/24. Instructions: Resume on 03/16/24. hold until after EBUS with pulmonology and cleared to resume it by pulmonology albuterol sulfate 2.5 mg/3 mL (0.083 %) solution for nebulization 2.5 mg inhalation Q6H PRN SHORTNESS OF BREATH/WHEEZING 12/12/21 magnesium oxide 420 mg tablet 420 mg PO BID SUPPLEMENT 12/12/21 multivitamin with minerals 1 tab PO DAILY SUPPLEMENT 12/12/21 spironolactone 25 mg tablet (Aldactone) 25 mg PO DAILY BLOOD PRESSURE 09/10/22 acetaminophen 325 mg tablet (Tylenol) 650 mg PO 4X/DAY PRN PAIN 01/27/23 cholecalciferol (vitamin D3) 50 mcg (2,000 unit) capsule (D3-2000) 100 mcg PO DAILY SUPPLEMENT 03/04/23 levetiracetam 500 mg tablet 500 mg PO BID seizure 05/27/23 furosemide 40 mg tablet 40 mg PO DAILY EDEMA 07/19/23 fluticasone fur. 200 mcg-umeclid 62.5 mcg-vilant 25 mcg inhalat.powder (Trelegy Ellipta) 1 inh inhalation DAILY #60 ea 12/14/23 guaifenesin 100 mg/5 mL oral liquid (Adult Tussin Chest Congestion) 200 mg PO TID PRN cough 12/31/23 guaifenesin 600 mg tablet, extended release 12 hr 600 mg PO BID PRN cough 12/31/23 insulin regular hum U-500 conc 500 unit/mL(3 mL) subcut pen (Humulin R U-500 (Conc) Insulin Kwikpen) 130 unit subcut BID DIABETES 12/31/23 codeine sulfate 15 mg tablet 15 mg PO Q6H PRN cough 2 days #8 tabs 02/14/24 ondansetron 8 mg disintegrating tablet 8 mg PO Q8H PRN nausea and vomiting #15 tabs 02/22/24 ondansetron 8 mg disintegrating tablet 8 mg PO Q8H PRN nausea and vomiting #12 tabs 04/04/24 azithromycin 250 mg tablet 250 mg PO DAILY #6 TABLETS 04/10/24 prednisone 20 mg tablet 40 mg (2 x 20 mg) PO DAILY 5 days #10 tabs 04/10/24 cyclobenzaprine 10 mg tablet 10 mg PO BID 04/17/24 loratadine 10 mg tablet (Allerclear) 10 mg PO DAILY 04/17/24 prednisolone acetate 1 % eye drops,suspension 1 drp RIGHT EYE Q4H 04/17/24 Medical Records Data Medical Nutrition Assessment Dietitian: Malnutrition Criteria Met Start: 04/18/24 11:30 Freq: Status: Active Protocol: Document 04/18/24 14:48 SB (Rec: 04/18/24 14:48 SB [id number]) Nutrition Malnutrition Evidence of Yes Malnutrition Exists Malnutrition (severe Chronic ): Evidenced By Suboptimal Energy Intake (Severe),Weight Loss (Severe) Clinical Problem Chronic Disease or Condition Related Malnutrition Etiology severe related to inadequate glycemic control and increased energy expenditure d/t cancer Signs/Symptoms as evidenced by PO meeting <75% of estimated nutrition needs x 2-3 weeks and 18% unintentional weight loss 3.5 months. Status Active Problem Recommendation Dietitian Adjust to consistent carbohydrate diet. Recommendations/ Will order 240ml glucerna shake TID with meals, prefers Changes chocolate/strawberry. PO needs to be established. Will monitor weight. Weight / BMI Weight Weight: 192 lb 0.362 oz Body Mass Index (BMI) 27.5 ABG / Lab / Microbiology Data 04/19/24 07:10 04/19/24 07:10 Laboratory: Laboratory Results - last 24 hr 04/18/24 13:12: POC Glucose 246 H 04/18/24 17:11: POC Glucose 185 H 04/18/24 21:23: POC Glucose 264 H 04/19/24 07:10: WBC 13.1 H, RBC 4.27 L, Hgb 12.3 L, Hct 36.8 L, MCV 86.2, MCH 28.8, MCHC 33.4, RDW Std Deviation 45.8 H, RDW Coeff of Cinda 14.9 H, Plt Count 233, MPV 10.5, Immature Gran % (Auto) 0.400, Neut % (Auto) 93.0 H, Lymph % (Auto) 2.9 L, Lewis % (Auto) 3.6, Eos % (Auto) 0.0, Baso % (Auto) 0.1, Absolute Neuts (auto) 12.2 H, Absolute Lymphs (auto) 0.38 L, Nucleated RBC % 0, Sodium 136, Potassium 4.3, Chloride 98, Carbon Dioxide 28.7, Anion Gap 9, BUN 22 H, Creatinine 0.63 L, Estim Creat Clear Calc 84.91, Est GFR (MDRD) Non-Af 100, BUN/Creatinine Ratio 35.2 H, Glucose 56 L, Calcium 10.5 04/19/24 09:23: POC Glucose 65 L 04/19/24 10:02: POC Glucose 72 L Microbiology: Microbiology 04/17/24 14:10 Mucosa - Nose SARS-CoV-2, Influenza & RSV (PCR) - Final D/C Instructions DC O2, CPAP, BIPAP Needs PSN CPAP & BiPAP: BiPAP & CPAP Settings per PSN Mode BiPAP 04/19/24 02:13 Bipap Delivery Device Face Mask 04/19/24 02:13 BiPAP Inspiratory Pressure 16 04/19/24 02:13 BiPAP Expiratory Pressure 9 04/19/24 02:13 Fraction of Inspired Oxygen ( 21 04/19/24 02:13 FIO2) Meaningful Use Info Ischemic Stroke Statin Dosing Therapy Reference: STATIN DOSE THERAPY REFERENCE: * Patients > 75 years receive moderate or high dose statin therapy. * Patients 75 years or YOUNGER should receive HIGH intensity statin dose unless contraindicated. You will be required to document reason for non-treatment if statin daily dose does not meet guidelines. HIGH DOSE STATIN THERAPY DAILY Atorvastatin > than or = to 40 mg Rosuvastatin > than or = to 20 mg Amlodipine + Atorvastatin > than or = to 2.5/40 mg Ezetimibe + Simvastatin 10/80 mg Simvastatin 80mg Discharge Plan Admission Admit Date/Time: 04/17/24 16:54 Attending Provider: Mando Cheek Primary Care Provider: [facility] Consulting Providers: Cirilo Styles Discharge Orders/Prescriptions Prescriptions: No Action clopidogrel [Plavix] 75 mg tablet 75 mg PO DAILY levetiracetam 500 mg tablet 500 mg PO BID Trelegy Ellipta 200-62.5-25 mcg blister with device 1 inh inhalation DAILY Qty: 60 6RF atorvastatin 80 MG tablet 80 mg PO QHS aspirin 81 MG tablet 81 mg PO DAILY Patient Comments: LST DOSE 03/26/24 FOR PROCEDURE ON 03/31/24 finasteride 5 MG tablet 5 mg PO DAILY escitalopram oxalate 10 MG tablet 10 mg PO DAILY nitroglycerin 0.4 MG tablet, sublingual 0.4 mg sublingual Q5M PRN (Reason: CHEST PAIN ) Qty: 30 0RF pantoprazole 40 MG tablet 40 mg PO BID carvedilol 25 MG tablet 25 mg PO BID ranolazine 500 mg Tablet Extended Release 12 Hr 500 mg PO Q12H tamsulosin 0.4 MG capsule 0.4 mg PO QHS magnesium oxide 420 mg Tablet 420 mg PO BID albuterol sulfate 2.5 mg /3 mL (0.083 %) Solution For Nebulization 2.5 mg INHALATION Q6H PRN (Reason: SHORTNESS OF BREATH/WHEEZING ) multivitamin with minerals Tablet 1 tab PO DAILY spironolactone [Aldactone] 25 mg tablet 25 mg PO DAILY acetaminophen [Tylenol] 325 MG tablet 650 mg PO 4X/DAY PRN (Reason: PAIN ) cholecalciferol (vitamin D3) [D3-2000] 50 mcg (2,000 unit) capsule 100 mcg PO DAILY furosemide 40 mg Tablet 40 mg PO DAILY guaifenesin [Adult Tussin Chest Congestion] 100 mg/5 mL liquid 200 mg PO TID PRN (Reason: cough) guaifenesin 600 mg tablet extended release 12hr 600 mg PO BID PRN (Reason: cough) Humulin R U-500 (Conc) Kwikpen 500 unit/mL (3 mL) insulin pen 130 unit subcut BID Rx Instructions: 125 units with breakfast; 125 units with dinner ondansetron 8 mg tablet,disintegrating 8 mg PO Q8H PRN (Reason: nausea and vomiting) Qty: 15 0RF codeine sulfate 15 mg tablet 15 mg PO Q6H PRN (Reason: cough) 2 Days Qty: 8 0RF ondansetron 8 mg tablet,disintegrating 8 mg PO Q8H PRN (Reason: nausea and vomiting) Qty: 12 0RF prednisone 20 mg tablet 40 mg PO DAILY 5 Days Qty: 10 0RF azithromycin 250 mg tablet 250 mg PO DAILY Qty: 6 0RF Rx Instructions: 2 tabs on day one, then 1 tab daily for 4 days loratadine [Allerclear] 10 mg tablet 10 mg PO DAILY cyclobenzaprine 10 mg tablet 10 mg PO BID prednisolone acetate 1 % drops,suspension 1 drp RIGHT EYE Q4H [facility] - Disposition Discharge Orders: Discharge Patient (Routine); Ordered 04/19/24 Ordered By: Dr. Mando Cheek
--- NOTE | 2024-04-19 12:17 | CASEMGMT ---
KRISTI CM in with hospitalist to discuss goals of care with patient and . Hospitalist explained prognosis and recommendation for palliative/hospice. RN CM offered emotional support and information regarding palliative care and hospice care. and patient agreeable to hospice consult to discuss options. Patient and had no further questions or concerns. RN GRAZYNA updated SW regarding hospice consult.
--- NOTE | 2024-04-19 12:31 | CASEMGMT ---
SW was informed that patient and his have agreed to talk with Hospice. SW spoke with patient, his , and son. Introduced self and role at [facility]. SW explained how the process works. SW called Hospice and made a referral as well as faxed information. Hoda Choi MSW [facility]
[2024-04-19 12:47] LABS: Bedside Glucose 116 mg/dL (74-106)
--- NOTE | 2024-04-19 15:12 | CASEMGMT ---
Hospice will be meeting with patient and his tomorrow 3-5 at 12:30. SW notified RN. RN CM notified physician. Hoda Choi TEACHING ARTIST [employer]
--- NOTE | 2024-04-19 16:26 | PN.HOSP_ITS ---
Reason for Visit Reason for Visit: Diagnoses Encephalopathy, unspecified (04/17/24) Chronic obstructive pulmonary disease with (acute) exacerbation (04/17/24) Objective Data Objective Data Vital Signs: Vital Signs Temp Pulse Resp BP Pulse Ox O2 Del Method O2 Flow Rate 98.1 F 60 17 125/66 H 94 Room Air 2 04/19/24 16:21 04/19/24 16:21 04/19/24 16:21 04/19/24 16:21 04/19/24 16:21 04/19/24 16:21 04/18/24 21:34 FiO2 21 04/19/24 02:13 Oxygen Flow Rate (L/min) 2 Oxygen Delivery Method Room Air Weight: 192 lb 0.362 oz Body Mass Index (BMI) 27.5 Intake & Output: Intake and Output for Last 24 Hours 04/17/24 04/18/24 04/19/24 23:59 23:59 23:59 Intake Total 1000 / 1100 997.5 / 997.5 440 / 440 Balance 1000 / 1100 997.5 / 997.5 440 / 440 Medical Nutrition Assessment Dietitian: Malnutrition Criteria Met Start: 04/18/24 11:30 Freq: Status: Active Protocol: Document 04/18/24 14:48 SB (Rec: 04/18/24 14:48 SB [id number]) Nutrition Malnutrition Evidence of Yes Malnutrition Exists Malnutrition (severe Chronic ): Evidenced By Suboptimal Energy Intake (Severe),Weight Loss (Severe) Clinical Problem Chronic Disease or Condition Related Malnutrition Etiology severe related to inadequate glycemic control and increased energy expenditure d/t cancer Signs/Symptoms as evidenced by PO meeting <75% of estimated nutrition needs x 2-3 weeks and 18% unintentional weight loss 3.5 months. Status Active Problem Recommendation Dietitian Adjust to consistent carbohydrate diet. Recommendations/ Will order 240ml glucerna shake TID with meals, prefers Changes chocolate/strawberry. PO needs to be established. Will monitor weight. Lab / Micro Data 04/19/24 07:10 04/19/24 07:10 Labs: Laboratory Results - last 24 hr 04/18/24 17:11: POC Glucose 185 H 04/18/24 21:23: POC Glucose 264 H 04/19/24 07:10: WBC 13.1 H, RBC 4.27 L, Hgb 12.3 L, Hct 36.8 L, MCV 86.2, MCH 28.8, MCHC 33.4, RDW Std Deviation 45.8 H, RDW Coeff of Cinda 14.9 H, Plt Count 233, MPV 10.5, Immature Gran % (Auto) 0.400, Neut % (Auto) 93.0 H, Lymph % (Auto) 2.9 L, [place] % (Auto) 3.6, Eos % (Auto) 0.0, Baso % (Auto) 0.1, Absolute Neuts (auto) 12.2 H, Absolute Lymphs (auto) 0.38 L, Nucleated RBC % 0, Sodium 136, Potassium 4.3, Chloride 98, Carbon Dioxide 28.7, Anion Gap 9, BUN 22 H, C reatinine 0.63 L, Estim Creat Clear Calc 84.91, Est GFR (MDRD) Non-Af 100, B UN/Creatinine Ratio 35.2 H, Glucose 56 L, Calcium 10.5 04/19/24 09:23: POC Glucose 65 L 04/19/24 10:02: POC Glucose 72 L 04/19/24 12:29: POC Glucose 116 H Micro: Microbiology 04/17/24 14:10 Mucosa - Nose SARS-CoV-2, Influenza & RSV (PCR) - Final Physical Exam Narrative Seen and examined. Discussed with the about the widespread about the lung cancer to liver, mediastinum and paraesophageal mass. Patient was admitted for confusion, decreased oral intake, no physical activity, sleeping all day after breakfast till supper as per the . He also had shortness of breath but his stated he has always been short of breath for last several years. General: Alert, Oriented x3, Cooperative HEENT: Bilateral profound hearing impairment. Atraumatic, PERRLA, EOMI, Normocephalic Oral: No Gingival or Mucosal Lesions/ Ulcerations Neck: Supple, No JVD, Negative Carotid Bruits Chest wall/Lungs: Air entry diminished in bilateral lung bases. No crepitation/rhonchi Cardiovascular: Regular rate, Regular Rhythm, Normal S1, Normal S2, systolic murmur Abdomen: Bowel Sounds Present, Soft, Non Tender, Non-Distended : No dysuria. No renal angle tenderness. No suprapubic tenderness. Extremities: No edema, Capillary Refill Less than 3 Seconds Skin: No rashes, No breakdown Musculoskeletal: No Tenderness to Palpation of Joints or Extremities Neurological: Cranial nerves II-XII grossly intact, DTR 2+/4. No acute focal neurological deficit. Psych/Mental Status: Flat affect Assessment & Plan Assessment/Plan (1) COPD with acute exacerbation: PLAN: 73-year-old gentleman was admitted with chief complaint of confusion, decreased oral intake generalized weakness and malaise, for several weeks Diminished breath sounds bilaterally. Patient's pulse ox is actually okay at 95% on room air. Continue bronchodilators and methylprednisolone. He has a COVID, influenza and RSV was negative. 3/4: Discussed with patient's regarding metastatic lung cancer possible small cell cancer. Advised hospice care. Family agreed. Hospice consulted (2) Encephalopathy: PLAN: I suspect due to the COPD exacerbation on top of what I suspect is either mild cognitive impairment or dementia. Possible metabolic encephalopathy from dehydration. CT abdomen also shows significant stool in the colon Diuretics on hold. IV fluid was given PLAN: Plan Elevated troponin: Slightly elevated at 32 but follow-up enzymes went down. Elevated cardiac troponins indeterminant. 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 states that the patient has [facility] insurance and needed approval to see if [place] oncologist. Says that he was supposed to see the oncologist tomorrow but they still do not have the insurance approval. I will ask case management to see if they have any insight in regards to this approval process of VA insurance to see VA providers. But this appears to be stage IV with liver metastasis. CT chest shows no evidence of acute pulmonary embolism but lymphadenopathy or mass in mediastinum and paraesophageal mass with compression of proximal right subclavian artery and surrounding the trachea. 3.3 cm left upper lobe mass. CT abdomen shows multiple nonenhancing right hepatic mass with the largest measuring 2.7 cm. Speech swallow ordered Diabetes mellitus type 2: Insulin-dependent. Patient on U-500. Will add sliding scale insulin as well. Seizure disorder: Continue levetiracetam. BPH: Continue tamsulosin. Hyperlipidemia: Continue with atorvastatin. VTE prophylaxis with enoxaparin CODE STATUS: Per previous documentation, patient is DNR Comfort Care arrest no intubation. Charges/Coding Visit Charges Inpatient E&M: 22207 Subs Hosp L2
[2024-04-19] MEDS: Acetaminophen 325 MG Tablet 650 MG PO (17:37)
[2024-04-19 17:38] LABS: Bedside Glucose 144 mg/dL (74-106)
[2024-04-19] MEDS: Tamsulosin HCl 0.4 MG Capsule PO (20:59)
[2024-04-19] MEDS: Atorvastatin Calcium 80 MG Tablet PO (20:59)
[2024-04-19] MEDS: Morphine 2 MG/ML Syringe IV (23:18)
[2024-04-19 23:30] LABS: Bedside Glucose 240 mg/dL (74-106)
[2024-04-20 03:00] VITALS: BP 136/67; PULSE 71; RESP 16; TEMP 36.2; O2SAT 95
[2024-04-20] MEDS: 0.9% Saline Lock 10 ML Syringe IV (05:15)
[2024-04-20 06:25] LABS: Absolute Lymphocyte Count 0.29 X10^3/uL (0.83-4.51); Absolute Neutrophil Count 8.1 X10^3/uL (2.0-7.7); Basophil# 0.01 X10^3/uL; Basophil% 0.1 % (0-1); Hematocrit 35.6 % (40-54); Hemoglobin 11.6 g/dL (13.0-16.5); Lymphocyte # 0.29 X10^3/ul (0.83-4.51); Lymphocyte % 3.3 % (19-41); Mean Corp Hgb Conc 32.6 g/dL (32-36); Mean Corpuscular Hgb 28.7 pg (27.0-32.0); Mean Corpuscular Volume 88.1 fL (80-94); Mean Platelet Vol. 10.9 fl (6.2-12.0); Monocyte# 0.37 X10^3/uL; Monocyte% 4.2 % (0-10); NRBC Flagged by Analyzer 0 % (0-5); Neutrophil # 8.14 X10^3/uL (2.7-7.7); Neutrophil % 91.7 % (47-70); POSITIVE DIFFERENTIAL YES; Platelet Count 222 K/mm3 (150-450); RBC Distribution Width CV 15.2 % (11.6-14.6); Red Blood Count 4.04 M/mm3 (4.6-6.2); White Blood Count 8.9 K/mm3 (4.4-11.0)
[2024-04-20 06:45] LABS: Anion Gap 9 (5-15); BUN 31 mg/dL (4-19); BUN/Creat Ratio 39.1 RATIO (10-20); Calcium,Total 10.3 mg/dL (7.6-11.0); Chloride 95 mmol/L (98-108); EST Glomerular Filtration Rate 94 (>60); Estimated Creatinine Clearance 84.91 ml/min (50-250); Glucose 282 mg/dL (70-99); Potassium 4.9 mmol/L (3.3-5.1); Sodium Level 132 mmol/L (133-145)
[2024-04-20 07:53] VITALS: PULSE 68; RESP 20; O2SAT 96
[2024-04-20] MEDS: Ipratropium/Albuterol Sulfate 3 ML AMPUL.NEB INHALATION ×2 (07:53→13:35)
[2024-04-20 08:14] VITALS: BP 146/70; PULSE 60; RESP 18; TEMP 36.7; O2SAT 95
[2024-04-20] MEDS: Carvedilol 25 MG Tablet PO (08:22)
[2024-04-20] MEDS: Insulin U-500 UNITS/ML PEN 125 UNITS SC (08:24)
[2024-04-20] MEDS: Enoxaparin 40 MG/0.4 ML Syringe SC (08:25)
[2024-04-20] MEDS: Loratadine 10 MG Tablet PO (08:25)
[2024-04-20] MEDS: cycloBENZAPRine HCl 10 MG Tablet PO (08:25)
[2024-04-20] MEDS: Escitalopram Oxalate 10 MG Tablet PO (08:25)
[2024-04-20] MEDS: levETIRAcetam 500 MG Tablet PO (08:25)
[2024-04-20] MEDS: prednisoLONE eye drops (5 mL) 1 DROP OPTH.BTL 1 DRP RIGHT EYE ×2 (08:26→14:57)
[2024-04-20] MEDS: Finasteride 5 MG Tablet PO (08:26)
[2024-04-20] MEDS: Ranolazine 500 MG Tablet PO (08:26)
[2024-04-20] MEDS: Pantoprazole Sodium 40 MG Tablet PO (08:26)
[2024-04-20 10:53] LABS: Bedside Glucose 250 mg/dL (74-106)
[2024-04-20 11:27] LABS: Bedside Glucose 295 mg/dL (74-106)
[2024-04-20 13:35] VITALS: PULSE 69; RESP 20; O2SAT 96
--- NOTE | 2024-04-20 13:59 | PCM.DC ---
Discharge Instructions DC O2, CPAP, BIPAP needs Home O2 Discharge instructions: No Follow Up Care Test Results: Test results from this visit will be discussed in further detail at your follow-up appointment, if applicable. Discharge Plan Admission Admit Date/Time: 04/17/24 16:54 Primary Reason for Your Visit: Metastatic small cell lung cancer. Failure to thrive, hospice care Attending Provider: Mando Cheek Primary Care Provider: [facility],[place] Consulting Providers: Cirilo Styles Discharge Orders/Prescriptions Prescriptions: Continued clopidogrel [Plavix] 75 mg tablet 75 mg PO DAILY levetiracetam 500 mg tablet 500 mg PO BID Trelegy Ellipta 200-62.5-25 mcg blister with device 1 inh inhalation DAILY Qty: 60 6RF atorvastatin 80 MG tablet 80 mg PO QHS aspirin 81 MG tablet 81 mg PO DAILY Patient Comments: LST DOSE 03/26/24 FOR PROCEDURE ON 03/31/24 finasteride 5 MG tablet 5 mg PO DAILY escitalopram oxalate 10 MG tablet 10 mg PO DAILY nitroglycerin 0.4 MG tablet, sublingual 0.4 mg sublingual Q5M PRN (Reason: CHEST PAIN ) Qty: 30 0RF pantoprazole 40 MG tablet 40 mg PO BID carvedilol 25 MG tablet 25 mg PO BID ranolazine 500 mg Tablet Extended Release 12 Hr 500 mg PO Q12H tamsulosin 0.4 MG capsule 0.4 mg PO QHS magnesium oxide 420 mg Tablet 420 mg PO BID albuterol sulfate 2.5 mg /3 mL (0.083 %) Solution For Nebulization 2.5 mg INHALATION Q6H PRN (Reason: SHORTNESS OF BREATH/WHEEZING ) multivitamin with minerals Tablet 1 tab PO DAILY spironolactone [Aldactone] 25 mg tablet 25 mg PO DAILY acetaminophen [Tylenol] 325 MG tablet 650 mg PO 4X/DAY PRN (Reason: PAIN ) cholecalciferol (vitamin D3) [D3-2000] 50 mcg (2,000 unit) capsule 100 mcg PO DAILY furosemide 40 mg Tablet 40 mg PO DAILY guaifenesin [Adult Tussin Chest Congestion] 100 mg/5 mL liquid 200 mg PO TID PRN (Reason: cough) guaifenesin 600 mg tablet extended release 12hr 600 mg PO BID PRN (Reason: cough) Humulin R U-500 (Conc) Kwikpen 500 unit/mL (3 mL) insulin pen 130 unit subcut BID Rx Instructions: 125 units with breakfast; 125 units with dinner ondansetron 8 mg tablet,disintegrating 8 mg PO Q8H PRN (Reason: nausea and vomiting) Qty: 15 0RF codeine sulfate 15 mg tablet 15 mg PO Q6H PRN (Reason: cough) 2 Days Qty: 8 0RF ondansetron 8 mg tablet,disintegrating 8 mg PO Q8H PRN (Reason: nausea and vomiting) Qty: 12 0RF loratadine [Allerclear] 10 mg tablet 10 mg PO DAILY prednisolone acetate 1 % drops,suspension 1 drp RIGHT EYE Q4H Changed cyclobenzaprine 10 mg tablet 5 mg PO BID 30 Days Qty: 0 0RF Discontinued prednisone 20 mg tablet 40 mg PO DAILY 5 Days Qty: 10 0RF azithromycin 250 mg tablet 250 mg PO DAILY Qty: 6 0RF Rx Instructions: 2 tabs on day one, then 1 tab daily for 4 days [facility] - Disposition Disposition (needs filled in before D/C Order can be placed): Home Health Service
[2024-04-20 14:00] VITALS: BP 134/68; PULSE 64; RESP 16; TEMP 36.5; O2SAT 93
--- NOTE | 2024-04-20 14:00 | CASEMGMT ---
Addendum entered by Vida Bright 04/20/24 15:05: Patient has order for discharge. KRISTI GERONIMO updated Hospice nurse. KRISTI GERONIMO in to discuss further needs at discharge. Patient and family had no further questions or concerns. states hospice will be out this evening for start of care. KRISTI GERONIMO updated [facility] of discharge with hospice. Original Note: KRISTI GERONIMO updated by hospice that patient has signed with hospice and would like to discharge home with hospice. KRISTI GERONIMO updated and hospitalist.
--- NOTE | 2024-04-20 14:16 | DS.PCM_ITS ---
Providers Date of Admission: 04/17/24 Date of Discharge: 04/20/24 Primary Care Physician: [facility] Reason For Visit: CONFUSION Diagnosis Discharge Diagnosis (1) COPD with acute exacerbation: Status: Chronic Code(s): J44.1 - Chronic obstructive pulmonary disease with (acute) exacerbation Plan: 73-year-old gentleman was admitted with chief complaint of confusion, decreased oral intake generalized weakness and malaise, for several weeks. Patient was admitted for confusion, decreased oral intake, no physical activity, sleeping all day after breakfast till supper as per the . He also had shortness of breath but his stated he has always been short of breath for last several years. Diminished breath sounds bilaterally. Patient's pulse ox is actually okay at 95% on room air. Continue bronchodilators and methylprednisolone. He has a COVID, influenza and RSV was negative. 04/19: Discussed with patient's regarding metastatic lung cancer possible small cell cancer. Advised hospice care. Family agreed. Hospice consulted 04/20: Hospice meeting was there at 1230 noon. Family agreed for home with hospice care. Discharge instruction given. (2) Encephalopathy: Status: Acute Code(s): G93.40 - Encephalopathy, unspecified Plan: I suspect due to the COPD exacerbation on top of what I suspect is either mild cognitive impairment or dementia. Possible metabolic encephalopathy from dehydration. CT abdomen also shows significant stool in the colon Diuretics on hold. IV fluid was given 04/20: Acute encephalopathy resolved. Patient is on baseline. He is eating his breakfast. Plan Elevated troponin: Slightly elevated at 32 but follow-up enzymes went down. Elevated cardiac troponins indeterminant. Metastatic small cell lung cancer with multiple mediastinal and paraesophageal mass: Diagnosed on [facility] from March. states that the patient has [facility] insurance and needed [place]. Says that he was supposed to see the oncologist tomorrow but they still do not have the insurance approval. I will ask case management to see if they have any insight in regards to this approval process of [facility] insurance to see [facility] providers. But this appears to be stage IV with liver metastasis. CT chest shows no evidence of acute pulmonary embolism but lymphadenopathy or mass in mediastinum and paraesophageal mass with compression of proximal right subclavian artery and surrounding the trachea. 3.3 cm left upper lobe mass. CT abdomen shows multiple nonenhancing right hepatic mass with the largest measuring 2.7 cm. Speech swallow ordered 3/5 speech therapy evaluation done. Mild oropharyngeal dysphagia. Recommended regular texture with thin liquid with aspiration precaution. Extent of the disease, lungs cancer with metastasis as reported by CT chest and CT abdomen explained to the the patient's with a diagram Diabetes mellitus type 2: Insulin-dependent. Patient on U-500. Will add sliding scale insulin as well. Seizure disorder: Continue levetiracetam. BPH: Continue tamsulosin. Hyperlipidemia: Continue with atorvastatin. VTE prophylaxis with enoxaparin CODE STATUS: Per previous documentation, patient is DNR Comfort Care arrest no intubation. Medications at Discharge Home Medications aspirin 81 mg tablet,delayed release 81 mg PO DAILY HEART HEALTH 06/11/18 atorvastatin 80 mg tablet 80 mg PO QHS CHOLESTEROL 06/11/18 escitalopram oxalate 10 mg tablet 10 mg PO DAILY DEPRESSION 06/11/18 finasteride 5 mg tablet 5 mg PO DAILY PROSTATE 06/11/18 nitroglycerin 0.4 mg sublingual tablet 0.4 mg sublingual Q5M PRN CHEST PAIN #30 TABLETS 07/22/18 pantoprazole 40 mg tablet,delayed release 40 mg PO BID GERD 05/18/20 carvedilol 25 mg tablet 25 mg PO BID BLOOD PRESSURE 06/22/20 ranolazine 500 mg tablet,extended release,12 hr 500 mg PO Q12H CHEST PAIN 06/22/20 tamsulosin 0.4 mg capsule 0.4 mg PO QHS PROSTATE 08/10/20 clopidogrel 75 mg tablet (Plavix) 75 mg PO DAILY BLOOD THINNER 01/07/21 albuterol sulfate 2.5 mg/3 mL (0.083 %) solution for nebulization 2.5 mg inhalation Q6H PRN SHORTNESS OF BREATH/WHEEZING 12/12/21 magnesium oxide 420 mg tablet 420 mg PO BID SUPPLEMENT 12/12/21 multivitamin with minerals 1 tab PO DAILY SUPPLEMENT 12/12/21 spironolactone 25 mg tablet (Aldactone) 25 mg PO DAILY BLOOD PRESSURE 09/10/22 acetaminophen 325 mg tablet (Tylenol) 650 mg PO 4X/DAY PRN PAIN 01/27/23 cholecalciferol (vitamin D3) 50 mcg (2,000 unit) capsule (D3-2000) 100 mcg PO DAILY SUPPLEMENT 03/04/23 levetiracetam 500 mg tablet 500 mg PO BID seizure 05/27/23 furosemide 40 mg tablet 40 mg PO DAILY EDEMA 07/19/23 fluticasone fur. 200 mcg-umeclid 62.5 mcg-vilant 25 mcg inhalat.powder (Trelegy Ellipta) 1 inh inhalation DAILY breathing #60 ea 12/14/23 guaifenesin 100 mg/5 mL oral liquid (Adult Tussin Chest Congestion) 200 mg PO TID PRN cough 12/31/23 guaifenesin 600 mg tablet, extended release 12 hr 600 mg PO BID PRN cough 12/31/23 insulin regular hum U-500 conc 500 unit/mL(3 mL) subcut pen (Humulin R U-500 (Conc) Insulin Kwikpen) 130 unit subcut BID DIABETES 12/31/23 codeine sulfate 15 mg tablet 15 mg PO Q6H PRN cough 2 days #8 tabs 02/14/24 ondansetron 8 mg disintegrating tablet 8 mg PO Q8H PRN nausea and vomiting #15 tabs 02/22/24 ondansetron 8 mg disintegrating tablet 8 mg PO Q8H PRN nausea and vomiting #12 tabs 04/04/24 loratadine 10 mg tablet (Allerclear) 10 mg PO DAILY allergies 04/17/24 prednisolone acetate 1 % eye drops,suspension 1 drp RIGHT EYE Q4H eye health 04/17/24 cyclobenzaprine 10 mg tablet 5 mg (1/2 x 10 mg) PO BID muscle spasms 30 days #0 tabs 04/20/24 Physical Exam Narrative Seen and examined. Hospice meeting today. Physical exam General: Alert, Oriented x3, Cooperative HEENT: Bilateral profound hearing impairment. Atraumatic, PERRLA, EOMI, Normocephalic Oral: No Gingival or Mucosal Lesions/ Ulcerations Neck: Supple, No JVD, Negative Carotid Bruits Chest wall/Lungs: Air entry diminished in bilateral lung bases. No crepitation/rhonchi Cardiovascular: Regular rate, Regular Rhythm, Normal S1, Normal S2, systolic murmur Abdomen: Bowel Sounds Present, Soft, Non Tender, Non-Distended : No dysuria. No renal angle tenderness. No suprapubic tenderness. Extremities: No edema, Capillary Refill Less than 3 Seconds Skin: No rashes, No breakdown Musculoskeletal: No Tenderness to Palpation of Joints or Extremities Neurological: Cranial nerves II-XII grossly intact, DTR 2+/4. No acute focal neurological deficit. Psych/Mental Status: Flat affect Medical Records Data Medical Nutrition Assessment Dietitian: Malnutrition Criteria Met Start: 04/18/24 11:30 Freq: Status: Active Protocol: Document 04/18/24 14:48 SB (Rec: 04/18/24 14:48 SB [id number]) Nutrition Malnutrition Evidence of Yes Malnutrition Exists Malnutrition (severe Chronic ): Evidenced By Suboptimal Energy Intake (Severe),Weight Loss (Severe) Clinical Problem Chronic Disease or Condition Related Malnutrition Etiology severe related to inadequate glycemic control and increased energy expenditure d/t cancer Signs/Symptoms as evidenced by PO meeting <75% of estimated nutrition needs x 2-3 weeks and 18% unintentional weight loss 3.5 months. Status Active Problem Recommendation Dietitian Adjust to consistent carbohydrate diet. Recommendations/ Will order 240ml glucerna shake TID with meals, prefers Changes chocolate/strawberry. PO needs to be established. Will monitor weight. Weight / BMI Weight Weight: 192 lb 0.362 oz Body Mass Index (BMI) 27.5 ABG / Lab / Microbiology Data 04/20/24 06:02 04/20/24 06:02 Laboratory: Laboratory Results - last 24 hr 04/19/24 17:18: POC Glucose 144 H 04/19/24 21:23: POC Glucose 240 H 04/20/24 06:02: WBC 8.9, RBC 4.04 L, Hgb 11.6 L, Hct 35.6 L, MCV 88.1, MCH 28.7, MCHC 32.6, RDW Std Deviation 48.0 H, RDW Coeff of Cinda 15.2 H, Plt Count 222, MPV 10.9, Immature Gran % (Auto) 0.700, Neut % (Auto) 91.7 H, Lymph % (Auto) 3.3 L, [place] % (Auto) 4.2, Eos % (Auto) 0.0, Baso % (Auto) 0.1, Absolute Neuts (auto) 8.1 H, Absolute Lymphs (auto) 0.29 L, Nucleated RBC % 0, Sodium 132 L, Potassium 4.9, Chloride 95 L, Carbon Dioxide 28.0, Anion Gap 9, BUN 31 H, Creatinine 0.80, Estim Creat Clear Calc 84.91, Est GFR (MDRD) Non-Af 94, BUN/Creatinine Ratio 39.1 H, Glucose 282 H, Calcium 10.3 04/20/24 08:23: POC Glucose 250 H 04/20/24 11:09: POC Glucose 295 H Microbiology: Microbiology 04/17/24 14:10 Mucosa - Nose SARS-CoV-2, Influenza & RSV (PCR) - Final D/C Instructions Discharge Diet: - (As patient desires. Home with hospice care) Discharge Activity: - (Patient is being discharged home with home hospice care.) DC O2, CPAP, BIPAP Needs PSN CPAP & BiPAP: BiPAP & CPAP Settings per PSN Mode BiPAP 04/20/24 03:18 Bipap Delivery Device Face Mask 04/20/24 03:18 BiPAP Inspiratory Pressure 16 04/20/24 03:18 BiPAP Expiratory Pressure 9 04/20/24 03:18 Fraction of Inspired Oxygen ( 21 04/20/24 03:18 FIO2) Home O2 Discharge instructions: No Meaningful Use Info Meaningful Use Meaningful Use Diagnoses (Choose all that apply): None applicable Ischemic Stroke Statin Dosing Therapy Reference: STATIN DOSE THERAPY REFERENCE: * Patients > 75 years receive moderate or high dose statin therapy. * Patients 75 years or YOUNGER should receive HIGH intensity statin dose unless contraindicated. You will be required to document reason for non-treatment if statin daily dose does not meet guidelines. HIGH DOSE STATIN THERAPY DAILY Atorvastatin > than or = to 40 mg Rosuvastatin > than or = to 20 mg Amlodipine + Atorvastatin > than or = to 2.5/40 mg Ezetimibe + Simvastatin 10/80 mg Simvastatin 80mg Discharge Plan Admission Admit Date/Time: 04/17/24 16:54 Primary Reason for Your Visit: Metastatic small cell lung cancer. Failure to thrive, hospice care Attending Provider: Mando Cheek Primary Care Provider: [facility],[place] Consulting Providers: Cirilo Styles Discharge Orders/Prescriptions Prescriptions: Continued clopidogrel [Plavix] 75 mg tablet 75 mg PO DAILY levetiracetam 500 mg tablet 500 mg PO BID Trelegy Ellipta 200-62.5-25 mcg blister with device 1 inh inhalation DAILY Qty: 60 6RF atorvastatin 80 MG tablet 80 mg PO QHS aspirin 81 MG tablet 81 mg PO DAILY Patient Comments: LST DOSE 03/26/24 FOR PROCEDURE ON 03/31/24 finasteride 5 MG tablet 5 mg PO DAILY escitalopram oxalate 10 MG tablet 10 mg PO DAILY nitroglycerin 0.4 MG tablet, sublingual 0.4 mg sublingual Q5M PRN (Reason: CHEST PAIN ) Qty: 30 0RF pantoprazole 40 MG tablet 40 mg PO BID carvedilol 25 MG tablet 25 mg PO BID ranolazine 500 mg Tablet Extended Release 12 Hr 500 mg PO Q12H tamsulosin 0.4 MG capsule 0.4 mg PO QHS magnesium oxide 420 mg Tablet 420 mg PO BID albuterol sulfate 2.5 mg /3 mL (0.083 %) Solution For Nebulization 2.5 mg INHALATION Q6H PRN (Reason: SHORTNESS OF BREATH/WHEEZING ) multivitamin with minerals Tablet 1 tab PO DAILY spironolactone [Aldactone] 25 mg tablet 25 mg PO DAILY acetaminophen [Tylenol] 325 MG tablet 650 mg PO 4X/DAY PRN (Reason: PAIN ) cholecalciferol (vitamin D3) [D3-2000] 50 mcg (2,000 unit) capsule 100 mcg PO DAILY furosemide 40 mg Tablet 40 mg PO DAILY guaifenesin [Adult Tussin Chest Congestion] 100 mg/5 mL liquid 200 mg PO TID PRN (Reason: cough) guaifenesin 600 mg tablet extended release 12hr 600 mg PO BID PRN (Reason: cough) Humulin R U-500 (Conc) Kwikpen 500 unit/mL (3 mL) insulin pen 130 unit subcut BID Rx Instructions: 125 units with breakfast; 125 units with dinner ondansetron 8 mg tablet,disintegrating 8 mg PO Q8H PRN (Reason: nausea and vomiting) Qty: 15 0RF codeine sulfate 15 mg tablet 15 mg PO Q6H PRN (Reason: cough) 2 Days Qty: 8 0RF ondansetron 8 mg tablet,disintegrating 8 mg PO Q8H PRN (Reason: nausea and vomiting) Qty: 12 0RF loratadine [Allerclear] 10 mg tablet 10 mg PO DAILY prednisolone acetate 1 % drops,suspension 1 drp RIGHT EYE Q4H Changed cyclobenzaprine 10 mg tablet 5 mg PO BID 30 Days Qty: 0 0RF Discontinued prednisone 20 mg tablet 40 mg PO DAILY 5 Days Qty: 10 0RF azithromycin 250 mg tablet 250 mg PO DAILY Qty: 6 0RF Rx Instructions: 2 tabs on day one, then 1 tab daily for 4 days Referrals [facility] - Disposition Disposition (needs filled in before D/C Order can be placed): Home Health Service Charges/Coding Visit Charges Inpatient E&M: 26341 Disch Hosp >30min
== END 2024-04-20 16:01 | disposition hospice, home (50) | DRG 190 ==
LOC: ED 16:53 → PCU 17:25
PROVIDERS: Emergency Provider Surgery; Visit Provider Internal Medicine
DX: J44.1 Chronic obstructive pulmonary disease with (acute) exacerbation (principal); G93.41 Metabolic encephalopathy; E43 Unspecified severe protein-calorie malnutrition; J98.59 Other diseases of mediastinum, not elsewhere classified; C78.7 Secondary malignant neoplasm of liver and intrahepatic bile duct; C34.90 Malignant neoplasm of unspecified part of unspecified bronchus or lung; J96.11 Chronic respiratory failure with hypoxia; J98.11 Atelectasis; R62.7 Adult failure to thrive; I11.0 Hypertensive heart disease with heart failure; E11.65 Type 2 diabetes mellitus with hyperglycemia; G40.909 Epilepsy, unspecified, not intractable, without status epilepticus; I69.322 Dysarthria following cerebral infarction; I50.9 Heart failure, unspecified; I25.119 Atherosclerotic heart disease of native coronary artery with unspecified angina pectoris; E78.00 Pure hypercholesterolemia, unspecified; Z79.4 Long term (current) use of insulin; K44.9 Diaphragmatic hernia without obstruction or gangrene; G47.33 Obstructive sleep apnea (adult) (pediatric); Z11.52 Encounter for screening for COVID-19; Z95.5 Presence of coronary angioplasty implant and graft; Z87.891 Personal history of nicotine dependence; R59.0 Localized enlarged lymph nodes; Z79.52 Long term (current) use of systemic steroids; Z68.27 Body mass index [BMI] 27.0-27.9, adult; Z79.82 Long term (current) use of aspirin; Z79.02 Long term (current) use of antithrombotics/antiplatelets; Z79.51 Long term (current) use of inhaled steroids; Z79.85 Long-term (current) use of injectable non-insulin antidiabetic drugs; Z79.899 Other long term (current) drug therapy; Z51.5 Encounter for palliative care; Z95.810 Presence of automatic (implantable) cardiac defibrillator; Z99.81 Dependence on supplemental oxygen; Z95.0 Presence of cardiac pacemaker
CPT/HCPCS: 36415; 70450; 71045; 71275; 74177; 80048; 80053; 81001; 82803; 82962; 83605; 83690; 83880; 84484; 85025; 85610; 85730; 87631; 92610; 93005; 94002; 94003; 94640; 97162; 99252; 99285; Q9967; A4216; G0463